=== PATIENT | female | born 1955 | race African-American/Black ===

== ENCOUNTER 2016-06-02 11:10 | Inpatient (IN) | payer OTHER, BC ==
[2016-06-02] MEDS ORDERED: morphine CARPU-JECT 4 MG/1 ML DISP.SYRIN IVPUSH ONE (11:38)
[2016-06-02] MEDS ORDERED: morphine CARPU-JECT 4 MG/1 ML DISP.SYRIN ONE (11:44)
--- NOTE | 2016-06-02 11:45 | PDOC ---
History of Present Illness - General History Source: Patient Exam Limitations: No Limitations - History of Present Illness Initial Comments: 06/02/16 13:37 The patient is a 60-year-old female, with a significant past medical history of CHF, HTN, hypercholesterolemia, hypothyroidism, pacemaker/defibrillator, stents , s/p cholecystectomy, who presents to the emergency department with abdominal pain. The patient reports that the abdominal pain is located in the right abdomen, and radiates to the chest. She reports that the abdominal pain is the most severe in the region where she had a cholecystectomy. The patient denies shortness of breath, headache and dizziness. The patient denies fever, chills, nausea, vomit, diarrhea and constipation. The patient denies dysuria, frequency, urgency and hematuria. Allergies: aspirin Past surgical history: cholecystectomy 04/2016, CABG 2004, bypass, stents x2 Social history: Current everyday smoker PMD - Dr. Parrish Ferrer <Dianne Raya - Last Filed: 06/02/16 15:14> <Wale Gaspar - Last Filed: 06/02/16 18:54> - General Chief Complaint: Pain Stated Complaint: ABD PAIN Past History <Dianne Raya - Last Filed: 06/02/16 15:14> - Past Medical History Asthma: Yes Cardiac Disorders: Yes (Stents, PM/Defib.) CHF: Yes GI Disorders: Yes HTN: Yes Hypercholesterolemia: Yes Psychiatric Problems: Yes (depression.) Suicide Attempt (Hx): No Seizures: No Thyroid Disease: Yes (Hypo) - Surgical History Abdominal Surgery: Yes (peg tube.) Cardiac Surgery: Yes (bypass,stent x2, CABG 2003, ICD/Pacer 7/15) Cholecystectomy: Yes (04/2016) Lung Surgery: (cabg 2003) Orthopedic Surgery: Yes (Right THR) - Immunization History Immunization Up to Date: Yes - Psycho/Social/Smoking Cessation Hx Anxiety: No Suicidal Ideation: No Smoking Status: No Smoking History: Current every day smoker Have you smoked in the past 12 months: Yes Number of Cigarettes Smoked Daily: 3 Information on smoking cessation initiated: No 'Breaking Loose' booklet given: 10/03/15 Hx Alcohol Use: No Drug/Substance Use Hx: No Substance Use Type: None Hx Substance Use Treatment: No <Wale Gaspar - Last Filed: 06/02/16 18:54> - Past Medical History Allergies/Adverse Reactions: Allergies Allergy/AdvReac Type Severity Reaction Status Date / Time aspirin AdvReac Mild gi upset Verified 06/02/16 11:19 Home Medications: Ambulatory Orders Atorvastatin Ca [Lipitor] 20 mg PO DAILY 05/29/12 Albuterol Sulfate [Proair Hfa -] 1 - 2 inh PO TID 06/10/14 Furosemide [Lasix -] 40 mg PO BID 06/10/14 Metoprolol Succinate [Toprol XL -] 200 mg PO DAILY 10/10/14 Levothyroxine [Synthroid -] 75 mcg PO DAILY 09/10/15 Lisinopril [Prinivil] 10 mg PO DAILY 10/03/15 Docusate Sodium [Colace -] 100 mg PO TID #90 capsule 10/04/15 Sennosides [Senna -] 2 tab PO HS #60 tablet 10/04/15 Acetaminophen [Tylenol .Regular Strength -] 650 mg PO Q4H PRN #30 tablet Aclidinium [place] [Tudorza -] 1 puff IH BID #10 inhaler 05/03/16 Budesonide/Formeterol Fumarate [SYMBICORT 160/4.5mcg -] 1 puff IH BID #10 inhaler 05/03/16 Furosemide [Lasix -] 40 mg PO BID@0600,1400 #60 tablet 05/03/16 Gabapentin [Neurontin -] 100 mg PO DAILY #30 capsule 05/03/16 Hydralazine HCl [Apresoline -] 10 mg PO TID #90 tablet 05/03/16 Isosorbide Mononitrate [Imdur -] 30 mg PO DAILY #30 tab.sr.24h 05/03/16 Olanzapine [Zyprexa -] 5 mg PO BID #60 tablet 05/03/16 Spironolactone [Aldactone -] 25 mg PO DAILY #60 tablet 05/03/16 Review of Systems - Review of Systems Able to Perform ROS?: Yes Comments:: 06/02/16 13:37 CONSTITUTIONAL: Absent: fever, chills, diaphoresis, generalized weakness, malaise, loss of appetite HEENT: Absent: rhinorrhea, nasal congestion, throat pain, throat swelling, difficulty swallowing, mouth swelling, ear pain, eye pain, visual changes CARDIOVASCULAR: Present: (+) chest pain Absent: syncope, palpitations, irregular heart rate, lightheadedness, peripheral edema RESPIRATORY: Absent: cough, shortness of breath, dyspnea with exertion, orthopnea, wheezing, stridor, hemoptysis GASTROINTESTINAL: Present: (+) abdominal pain Absent: abdominal distension, nausea, vomiting, diarrhea, constipation, melena, hematochezia GENITOURINARY: Absent: dysuria, frequency, urgency, hesitancy, hematuria, flank pain, genital pain MUSCULOSKELETAL: Absent: myalgia, arthralgia, joint swelling SKIN: Absent: rash, itching, pallor HEMATOLOGIC/IMMUNOLOGIC: Absent: easy bleeding, easy bruising, lymphadenopathy, frequent infections ENDOCRINE: Absent: unexplained weight gain, unexplained weight loss, heat intolerance, cold intolerance NEUROLOGIC: Absent: headache, focal weakness or paresthesias, dizziness, unsteady gait, seizure, mental status changes, bladder or bowel incontinence PSYCHIATRIC: Absent: anxiety, depression, suicidal or homicidal ideation, hallucinations. <Dianne Raya - Last Filed: 06/02/16 15:14> *Physical Exam - Vital Signs Last Vital Signs Temp Pulse Resp BP Pulse Ox 96.7 F L 89 20 126/93 98 06/02/16 11:19 06/02/16 11:19 06/02/16 11:19 06/02/16 11:19 06/02/16 11:19 - Physical Exam Comments: 06/02/16 13:37 GENERAL: Well developed, well nourished. Awake and alert. In no acute distress. Speaking in full sentences. HEENT: Normocephalic, atraumatic. PERRLA, EOMI. No conjunctival pallor. Sclera are non- icteric. Moist mucous membranes. Oropharynx is clear. NECK: Supple. Full ROM. No JVD. Carotid pulses 2+ and symmetric, without bruits. No thyromegaly. No lymphadenopathy. CARDIOVASCULAR: Regular rate and rhythm. No murmurs, rubs, or gallops. Distal pulses are 2+ and symmetric. PULMONARY: (+)Poor inspiratory effort. Lungs clear to auscultation bilaterally. No wheezing , rales or rhonchi. ABDOMINAL: (+) Diffuse abdominal tenderness to palpation. (+) Abdomen shows prior puncture wounds from laparoscopic cholecystectomy. Soft. Non-distended. No rebound or guarding. No organomegaly. Normoactive bowel sounds. MUSCULOSKELETAL Normal range of motion at all joints. No bony deformities or tenderness. No CVA tenderness. EXTREMITIES: (+) 3+ pitting edema. No cyanosis. No clubbing. No calf tenderness. SKIN: Warm and dry. Normal capillary refill. No rashes. No jaundice. NEUROLOGICAL: Alert, awake, appropriate. Cranial nerves 2-12 intact. No deficits to light touch and temperature in face, upper extremities and lower extremities. No motor deficits in the in face, upper extremities and lower extremities. Normoreflexic in the upper and lower extremities. Normal speech. Toes are downgoing bilaterally. Gait is normal without ataxia. PSYCHIATRIC: Cooperative. Good eye contact. Appropriate mood and affect. <Dianne Raya - Last Filed: 06/02/16 15:14> - Vital Signs Last Vital Signs Temp Pulse Resp BP Pulse Ox 96.7 F L 89 20 126/93 98 06/02/16 11:19 06/02/16 11:19 06/02/16 11:19 06/02/16 11:19 06/02/16 11:19 <Wale Gaspar - Last Filed: 06/02/16 18:54> ED Treatment Course - LABORATORY CBC & Chemistry Diagram: 06/02/16 12:00 06/02/16 12:00 - ADDITIONAL ORDERS Additional order review: Laboratory Results 06/02/16 12:00 Sodium 135 L Potassium 3.8 Chloride 98 Carbon Dioxide 28 Anion Gap 9 BUN 21 H D Creatinine 0.9 D Creat Clearance w eGFR > 60 Random Glucose 96 Calcium 9.2 Total Bilirubin 2.5 H D AST 37 D ALT 25 Alkaline Phosphatase 165 H Creatine Kinase 387 H D CK-MB (CK-2) 13.785 H Troponin I 0.19 H B-Natriuretic Peptide 2473.26 H Total Protein 6.9 Albumin 3.2 L Lipase 48 L 06/02/16 12:00 RBC 5.09 MCV 80.6 MCHC 32.0 RDW 19.5 H MPV 7.9 Neutrophils % 68.3 Lymphocytes % 19.2 Monocytes % 12.2 H Eosinophils % 0.0 Basophils % 0.3 - RADIOLOGY Radiograph Interpretation: 06/02/16 15:15 ABDOMEN US- LIMITED Reviewed by: Dr. Wale Gaspar Interpreted by: Dr. Ildefonso Marinelli IMPRESSION: No retained stones, no biliary dilation with no signs of pancreatitis. No acute changes with no ascites or fluid collections identified. - Medications Given in the ED: ED Medications Discontinued Medications Generic Name Dose Route Start Last Admin Trade Name [place] PRN Reason Stop Dose Admin Morphine Sulfate 4 mg 06/02/16 11:38 06/02/16 12:02 Morphine Injection - IVPUSH 06/02/16 11:39 4 mg ONCE ONE Administration <Dianne Raya - Last Filed: 06/02/16 15:14> - LABORATORY CBC & Chemistry Diagram: 06/02/16 12:00 06/02/16 12:00 - RADIOLOGY Radiology Studies Ordered: Category Date Time Status ABDOMEN US -LIMITED [US] Stat Ultrasound 06/02/16 11:40 Ordered <Wale Gaspar - Last Filed: 06/02/16 18:54> Medical Decision Making - Medical Decision Making 06/02/16 18:50 Recent cholecystectomy with sob, hx of noncompliance to meds. US neg. CXR: CHF , clinical chf present. Will admit as obs. <Wale Gaspar - Last Filed: 06/02/16 18:54> *DC/Admit/Observation/Transfer - Attestations Scribe Attestion: 06/02/16 13:37 Documentation prepared by Dianne Raya, acting as manager medical device for Wale Gaspar MD. <Dianne Raya - Last Filed: 06/02/16 15:14> - Discharge Dispostion Admit: Yes <Wale Gaspar - Last Filed: 06/02/16 18:54> Diagnosis at time of Disposition: Congestive heart failure, NYHA class 3, Postoperative abdominal pain - Discharge Dispostion Condition at time of disposition: Stable - Referrals Referrals: Parrish Ferrer MD [Primary Care Provider] -
[2016-06-02 12:14] LABS: BASOPHIL 0.3 % (0-2.0); MCH 25.8 pg (25.7-33.7); MEAN CELL VOLUME 80.6 fl (80-96); MEAN PLT VOLUME 7.9 fl (7.5-11.1); NEUTROPHILS 68.3 % (42.8-82.8); PLATELET COUNT 226 K/MM3 (134-434); RDW 19.5 % (11.6-15.6); WHITE BLOOD COUNT 6.7 K/mm3 (4.0-10.0)
[2016-06-02 12:44] LABS: ALBUMIN 3.2 g/dl (3.4-5.0); ANION GAP 9 (8-16); CALCIUM 9.2 mg/dL (8.5-10.1); CO2 28 mmol/L (21-32); GLUCOSE,RANDOM 96 mg/dL (74-106)
[2016-06-02 12:47] LABS: BILIRUBIN,TOTAL 2.5 mg/dL (0.2-1.0); CREATININE 0.9 mg/dL (0.55-1.02); SGPT/ALT 25 U/L (12-78); TOT PROT 6.9 g/dl (6.4-8.2)
[2016-06-02 12:50] LABS: ALK PHOS 165 U/L (45-117); TROPONIN I 0.19 ng/ml (0.00-0.05)
[2016-06-02 12:51] LABS: SGOT/AST 37 U/L (15-37)
[2016-06-02 13:46] LABS: URINE APPEARANCE CLEAR; URINE BILIRUBIN NEGATIVE (NEGATIVE); URINE BLOOD NEGATIVE (NEGATIVE); URINE COLOR AMBER; URINE GLUCOSE (UA) NEGATIVE (NEGATIVE); URINE KETONE NEGATIVE (NEGATIVE); URINE LEUK ESTERASE NEGATIVE (NEGATIVE); URINE NITRITE NEGATIVE (NEGATIVE); URINE UROBILINOGEN 4.0 E.U/dl E.U./dl (0.2-1.0)
[2016-06-02 13:48] LABS: URINE PROTEIN 1+ (NEGATIVE)
[2016-06-02 13:49] LABS: URINE HYALINE CAST 24 /lpf; URINE MUCUS RARE; URINE RBC 1 /hpf (0-3); URINE WBC 1 /hpf (3-5)
[2016-06-02] MEDS ORDERED: FUROSEMIDE 40 MG/4 ML INJECTABLE VIAL IVPUSH ONE (18:48)
[2016-06-02] MEDS ORDERED: FUROSEMIDE 40 MG/4 ML INJECTABLE VIAL ONE (18:58)
--- NOTE | 2016-06-02 19:37 | PN ---
<NgocjuaquinDeepika gaming - Last Filed: 06/02/16 19:34> Teaching Attending Note Name of Resident: Caty Jarrett <Emperatriz Alonzo - Last Filed: 06/03/16 03:21> Teaching Attending Note ATTENDING PHYSICIAN STATEMENT I saw and evaluated the patient. I reviewed the resident's note and discussed the case with the resident. I agree with the resident's findings and plan as documented. SUBJECTIVE: Patient is a 60 year old female, complaining of right upper abdominal pain, lower extremity pain and edema and palpitations. The abdominal pain and lower extremity pain and edema has been constant since her cholecystectomy in April 2016. She came to the ED today when the palpitations began. She describes the abdominal pain as pinching and notes the abdominal pain is alleviated by eating ice cubes. Patient uses pillows to prop her feet up at night, but does not use extra pillows to prop up her upper body. Patient also reports occasional SOB and restlessness since her cholecystectomy. She reports she is compliant with taking her medications. PHQ score of 10 Moderate. PMHx: CHF, HTN, hypercholesterolemia, hypothyroidism, pacemaker/defibrillator, stents, s/p cholecystectomy . OBJECTIVE: Last Vital Signs Temp Pulse Resp BP Pulse Ox 96.7 F L 89 20 126/93 98 06/02/16 11:19 06/02/16 11:19 06/02/16 11:19 06/02/16 11:19 06/02/16 11:19 GENERAL: Awake, alert, and fully oriented, in no acute distress HEENT: Atraumatic. PERRLA, EOMI. Moist mucosa. LUNGS: No distress, speaks full sentences, fine crackles in left lower lung. HEART: + JVD. Regular rate and rhythm, normal S1 and S2, no murmurs, rubs or gallops, peripheral pulses normal and equal bilaterally. ABDOMEN: + ventral hernia. Not incarcerated. + 1.5 cm open wound with serosanguinous secretions. Slight erythema. Soft, nontender, normoactive bowel sounds. No guarding, no rebound. EXTREMITIES: Normal inspection, Normal range of motion, 1+ pitting edema. No clubbing or cyanosis. NEUROLOGICAL: Cranial nerves II through XII grossly intact. Normal speech, normal gait, no focal sensorimotor deficits SKIN: Warm, Dry, normal turgor, no rashes or lesions noted. CBCD WBC 6.7 K/mm3 (4.0-10.0) 06/02/16 12:00 RBC 5.09 M/mm3 (3.60-5.2) 06/02/16 12:00 Hgb 13.1 GM/dL (10.7-15.3) 06/02/16 12:00 Hct 41.0 % (32.4-45.2) 06/02/16 12:00 MCV 80.6 fl (80-96) 06/02/16 12:00 MCHC 32.0 g/dl (32.0-36.0) 06/02/16 12:00 RDW 19.5 % (11.6-15.6) H 06/02/16 12:00 Plt Count 226 K/MM3 (134-434) D 06/02/16 12:00 MPV 7.9 fl (7.5-11.1) 06/02/16 12:00 CMP Sodium 135 mmol/L (136-145) L 06/02/16 12:00 Potassium 3.8 mmol/L (3.5-5.1) 06/02/16 12:00 Chloride 98 mmol/L (98-107) 06/02/16 12:00 Carbon Dioxide 28 mmol/L (21-32) 06/02/16 12:00 Anion Gap 9 (8-16) 06/02/16 12:00 BUN 21 mg/dL (7-18) H D 06/02/16 12:00 Creatinine 0.9 mg/dL (0.55-1.02) D 06/02/16 12:00 Creat Clearance w eGFR > 60 (>60) 06/02/16 12:00 Calcium 9.2 mg/dL (8.5-10.1) 06/02/16 12:00 Total Bilirubin 2.5 mg/dL (0.2-1.0) H D 06/02/16 12:00 AST 37 U/L (15-37) D 06/02/16 12:00 ALT 25 U/L (12-78) 06/02/16 12:00 Alkaline Phosphatase 165 U/L (45-117) H 06/02/16 12:00 Total Protein 6.9 g/dl (6.4-8.2) 06/02/16 12:00 Albumin 3.2 g/dl (3.4-5.0) L 06/02/16 12:00 IMAGING: Chest X-Ray Impression: CHF Abdominal Ultrasound Impression: No retained stones, no biliary dilation with no signs of pancreatitis. No acute changes with no ascites or fluid collections identified. ASSESSMENT AND PLAN: 1.) CHF exacerbation NIHA Class 3 - Lasix 60 BID - Echo - Cardiology consult - Continue home meds - Fluid restrict - Monitor Is and Os 2.) Abdominal wound s/p lap - Clindamycin - Daily wound care 3.) Abdominal pain most likely secondary to ventral hernia vs adhesions - Percocet Q6 hrs PRN - Refer to surgeon on discharge 4.) Depression - Moderate - PHQ score of 9-10 - Consider ref to psych on discharge 5.) Hypothyroidism -Check TSH levels -Continue levothyroxine 6.) DVT PPx - Heparin 5,000 units SQ Documentation prepared by Emperatriz Alonzo, acting as manager medical writing for , Deepika Whatley MD.
[2016-06-02 19:54] LABS: TROPONIN I 0.18 ng/ml (0.00-0.05)
--- NOTE | 2016-06-02 20:41 | MSN ---
Admitting History and Physical - Primary Care Physician PCP: Carissa - Admission Chief Complaint: Abdominal pain History of Present Illness: 60 year old female with a pmhx of CHF, FL with stents x2, defibrillator/ pacemaker and CABG, HTN, HLD, hypercholesterolemia, DM, depression, CAD, hypothyroidism, kidney stone and peripheral neuropathy who presents with right sided abdominal pain for the last month. Patient is s/p cholestectomy in 05/05. In the past two days the pain has gotten worse and radiates to her back, heart and legs. She describes the pain in her legs as tingling and the pain in her abdomen as sharp. Patient has been eating a cup of ice a day for the chest pain and she says it helps. She denies dysuria, frequency and burning with urination. Denies headache, n/v/d, fever, chills, palpitations and no loss in appetite. 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 Cardiovascular: Yes: CAD (CABG 2003, stents x2, now with defibrillator), CHF, HTN, Hyperlipdemia, FL, Other (Hypercholesterolemia) Pulmonary: Yes: COPD Hepatobiliary: Yes: Cholecystitis Renal/: Yes: Renal Calculi ...: No Psych: Yes: Depression Musculoskeletal: Yes: Chronic low back pain Endocrine: Yes: Hypothyroidism - Past Surgical History Past Surgical History: Yes: CABG, Cholecystectomy, Joint Replacement (right THR) , Stent (X2) - Smoking History Smoking history: Current every day smoker Have you smoked in the past 12 months: Yes Aproximately how many cigarettes per day: 3 (for 35 years) - Alcohol/Substance Use Hx Alcohol Use: No History of Substance Use: reports: None - Social History ADL: Independent History of Recent Travel: No Home Medications - Allergies Allergies/Adverse Reactions: Allergies Allergy/AdvReac Type Severity Reaction Status Date / Time aspirin AdvReac Mild gi upset Verified 06/02/16 11:19 - Home Medications Home Medications: Ambulatory Orders Atorvastatin Ca [Lipitor] 20 mg PO DAILY 05/29/12 Albuterol Sulfate [Proair Hfa -] 1 - 2 inh PO TID 06/10/14 Furosemide [Lasix -] 40 mg PO BID 06/10/14 Metoprolol Succinate [Toprol XL -] 200 mg PO DAILY 05/23/15 Levothyroxine [Synthroid -] 75 mcg PO DAILY 09/10/15 Lisinopril [Prinivil] 10 mg PO DAILY 10/03/15 Docusate Sodium [Colace -] 100 mg PO TID #90 capsule 10/04/15 Sennosides [Senna -] 2 tab PO HS #60 tablet 10/04/15 Acetaminophen [Tylenol .Regular Strength -] 650 mg PO Q4H PRN #30 tablet Aclidinium [place] [Tudorza -] 1 puff IH BID #10 inhaler 05/03/16 Budesonide/Formeterol Fumarate [SYMBICORT 160/4.5mcg -] 1 puff IH BID #10 inhaler 05/03/16 Furosemide [Lasix -] 40 mg PO BID@0600,1400 #60 tablet 05/03/16 Gabapentin [Neurontin -] 100 mg PO DAILY #30 capsule 05/03/16 Hydralazine HCl [Apresoline -] 10 mg PO TID #90 tablet 05/03/16 Isosorbide Mononitrate [Imdur -] 30 mg PO DAILY #30 tab.sr.24h 05/03/16 Olanzapine [Zyprexa -] 5 mg PO BID #60 tablet 05/03/16 Spironolactone [Aldactone -] 25 mg PO DAILY #60 tablet 05/03/16 Review of Systems - Review of Systems Constitutional: reports: No Symptoms, Lethargy Eyes: reports: No Symptoms HENT: reports: No Symptoms Neck: reports: No Symptoms Cardiovascular: reports: Chest Pain, Edema, Shortness of Breath Respiratory: reports: SOB, SOB on Exertion Gastrointestinal: reports: Abdominal Pain Genitourinary: reports: No Symptoms Musculoskeletal: reports: Back Pain, Extremity Pain Integumentary: reports: Incision, Wound Neurological: reports: Headache Physical Examination Vital Signs: Vital Signs Temperature 96.7 F L 06/02/16 11:19 Pulse Rate 89 06/02/16 11:19 Respiratory Rate 20 06/02/16 11:19 Blood Pressure 126/93 06/02/16 11:19 O2 Sat by Pulse Oximetry (%) 98 06/02/16 11:19 Constitutional: Yes: Well Nourished, Calm, Mild Distress Eyes: Yes: WNL, Conjunctiva Clear, EOM Intact HENT: Yes: Atraumatic, Normocephalic Neck: Yes: WNL, Supple, Trachea Midline Cardiovascular: Yes: WNL, Regular Rate and Rhythm Respiratory: Yes: WNL, Regular, Other (Crackles) Gastrointestinal: Yes: Normal Bowel Sounds, Soft, Distention, Hernia, Tenderness Musculoskeletal: Yes: Back Pain Extremities: Yes: Calf Tenderness Edema: LLE: 2+ (Pitting), RLE: 2+ (Pitting) Peripheral Pulses WNL: Yes Peripheral Pulses: Left Doralis Pedis: 2+, Right Dorsalis Pedis: 2+ Wound/Incision: Yes: Reddened (possibly infected surgical site) Neurological: Yes: WNL, Alert, Oriented, Lethargy, Tingling (Lower extremities) Psychiatric: Yes: Alert, Oriented, Other (saddened) Labs: [id number] ALP-165 CK-387 Troponin 0.19 [id number] Urine culture pending Imaging - Results Chest X-ray: Report Reviewed, Image Reviewed (CHF) Ultrasound: Report Reviewed EKG: Report Reviewed, Image Reviewed (PVC, left atrial enlargement, st elevation v2-4) Assessment/Plan 60 year old female with pmhx of CHF, [place] with defibrillator/pacemaker,stents x2 and CABG, HTN, HLD, hypercholesterolemia, CAD, DM, depression, peripheral neuropathy, kidney stone and hypothyroidism being admitted for CHF exacterbation. CHF -lasix -spironolactone -proair -trend troponin -hydralazine -symbicort -tudorza -percocet -Echo -Cardiology consult Surgical incision infection -clindamycin Ventral hernia -Surgical consult Hypothyroidism -synthroid HTN -metoprolol -imdur -lisinopril -hydralazine -lasix DM -neurontin HLP/hypercholesterolemia -lipitor Depression -Zyprexa Back pain -tylenol salt restricted diet
[2016-06-02] MEDS ORDERED: CLINDAMYCIN HCL 150 MG CAPSULE (FP) PO ONE ×2 (21:21)
--- NOTE | 2016-06-02 22:04 | HP ---
CHIEF COMPLAINT: PCP: HISTORY OF PRESENT ILLNESS: 60 year old female presented to the ED with the chief complaints of right sided abdominal pain x 1month. Abdominal pain localized in Right upper and lower quadrant pain, slowly progressing to worse, increased to 10/10 in intensity which brought her to the hospital, abdominal pain was non radiating. Since 2days , pains getting worse, radiating to her back, heart and legs. Patient is s/p cholestectomy in 05/05. She describes the pain in her legs as tingling and the pain in her abdomen as sharp. Patient has been eating a cup of ice a day for the chest pain and she says it helps. She denies dysuria, frequency and burning with urination. Denies headache, n/v/d, fever, chills, palpitations and no loss in appetite. She hasn't been compliant with her home meds. ER course was notable for: (1) CBC, CMP, UA, D-dimer (2) CXR, USG Abd (3) Morphine, Lasix Recent Travel: PAST MEDICAL HISTORY: CHF, [place] with stents x2, defibrillator/pacemaker and CABG, HTN, HLD, hypercholesterolemia, DM, depression, CAD, hypothyroidism, kidney stone and peripheral neuropathy PAST SURGICAL HISTORY: Social History: Smoking: Active smoker, Smokes 3 cigarettes/day x 35 years Alcohol: Doesn't drink alcohol Drugs: No illicit drug use Ho Family History: Not known Allergies aspirin Adverse Reaction (Mild, Verified 06/02/16 11:19) GI upset HOME MEDICATIONS: Medication Instructions Recorded Atorvastatin Ca [Lipitor] 20 mg PO DAILY 05/29/12 Albuterol Sulfate [Proair Hfa -] 1 - 2 inh PO TID 06/10/14 Furosemide [Lasix -] 40 mg PO BID 06/10/14 Metoprolol Succinate [Toprol XL -] 200 mg PO DAILY 10/10/14 Levothyroxine [Synthroid -] 75 mcg PO DAILY 09/10/15 Lisinopril [Prinivil] 10 mg PO DAILY 10/03/15 Docusate Sodium [Colace -] 100 mg PO TID #90 capsule 10/04/15 Sennosides [Senna -] 2 tab PO HS #60 tablet 10/04/15 Acetaminophen [Tylenol .Regular 650 mg PO Q4H PRN #30 tablet 05/03/16 Strength -] Aclidinium Supply [Tudorza -] 1 puff IH BID #10 inhaler 05/03/16 Budesonide/Formeterol Fumarate 1 puff IH BID #10 inhaler 05/03/16 [SYMBICORT 160/4.5mcg -] Furosemide [Lasix -] 40 mg PO BID@0600,1400 #60 tablet 05/03/16 Gabapentin [Neurontin -] 100 mg PO DAILY #30 capsule 05/03/16 Hydralazine HCl [Apresoline -] 10 mg PO TID #90 tablet 05/03/16 Isosorbide Mononitrate [Imdur -] 30 mg PO DAILY #30 tab.sr.24h 05/03/16 Olanzapine [Zyprexa -] 5 mg PO BID #60 tablet 05/03/16 Spironolactone [Aldactone -] 25 mg PO DAILY #60 tablet 05/03/16 REVIEW OF SYSTEMS CONSTITUTIONAL: Present: generalized weakness Absent: fever, chills, diaphoresis , malaise, loss of appetite, weight change HEENT: Absent: rhinorrhea, nasal congestion, throat pain, throat swelling, difficulty swallowing, mouth swelling, ear pain, eye pain, visual changes CARDIOVASCULAR: Absent: chest pain, syncope, palpitations, irregular heart rate, lightheadedness , peripheral edema RESPIRATORY: Absent: cough, shortness of breath, dyspnea with exertion, orthopnea, wheezing, stridor, hemoptysis GASTROINTESTINAL: Present: abdominal pain, abdominal distension Absent: nausea, vomiting, diarrhea, constipation, melena, hematochezia GENITOURINARY: Absent: dysuria, frequency, urgency, hesitancy, hematuria, flank pain, genital pain MUSCULOSKELETAL: Absent: myalgia, arthralgia, joint swelling, back pain, neck pain SKIN: Absent: rash, itching, pallor HEMATOLOGIC/IMMUNOLOGIC: Absent: easy bleeding, easy bruising, lymphadenopathy, frequent infections ENDOCRINE: Absent: unexplained weight gain, unexplained weight loss, heat intolerance, cold intolerance NEUROLOGIC: Absent: headache, focal weakness or paresthesias, dizziness, unsteady gait, seizure, mental status changes, bladder or bowel incontinence PSYCHIATRIC: Absent: anxiety, depression, suicidal or homicidal ideation, hallucinations. PHYSICAL EXAMINATION GENERAL: Awake, alert, and fully oriented, in mild distress secondary to abdominal pain. HEAD: Normal with no signs of trauma. EYES: EOM intact, no pallor or icterus EARS, NOSE, THROAT: Ears normal. Moist mucous membranes. NECK: Supple LUNGS: Breath sounds equal, Bibasilar crackles+ , absent wheeze. HEART: Regular rate and rhythm, normal S1 and S2 without murmur. ABDOMEN: 1.5 x 2cm open surgical wound, draining minimal serosanguinous fluid, Soft, tenderness Right upper quadrant> Left, distended +, normoactive bowel sounds, no guarding, no rebound, no masses. No hepatomegaly or splenomegaly. MUSCULOSKELETAL: Normal range of motion at all joints. No bony deformities or tenderness. No CVA tenderness. UPPER EXTREMITIES: 2+ pulses, warm, well-perfused. No cyanosis. No clubbing. Cap refill <2 seconds. No peripheral edema. LOWER EXTREMITIES: 2+ pulses, warm, well-perfused. No calf tenderness. B/L pitting edema ++ NEUROLOGICAL: Cranial nerves II-XII intact. Normal speech. Gait not observed. PSYCHIATRIC: Cooperative. Poor eye contact. Appropriate mood and affect. SKIN: Warm, dry, normal turgor, no rashes or lesions noted. USG abdomen 05/21/2016- No acute pathology. Hepatomegaly 18.70 cm with hepatic steatosis. ASSESSMENT/PLAN: 60 year old female with significant past medical hx of CHF, [place] with stents x2, defibrillator/pacemaker and CABG, HTN, HLD, hypercholesterolemia, DM, depression , CAD, hypothyroidism, kidney stone and peripheral neuropathy presented to the ED with the chief complaints of right sided abdominal pain x 1month. # CHF-Acute exacerbation; HTN Stable Has B/L Pitting edema, Elevated D-dimer. Patient not compliant with home meds Continue Lasix 60mg BID Continue spironolactone 25mg PO daily Continue Lisinopril 10mg Daily Continue Metoprolol 200mg Daily Cardiology consult for Dr. Cardenas Echo ordered Fluid restriction Monitor I's and O's # Abdominal Pain with surgicial incision infection Likely has a ventral hernia Hepatomegaly with hepatic steatosis on USG abdomen s/p cholecystectomy Percocet ordered for pain. Clindamycin to cover for surgical site infection Wound care If symptoms persists, would consider Abd/Pelvis CT Surgical consult recommended # Chronic elevations of troponins as compared to troponins in previous admissions # Hypothyroidism Continue Levothyroxine 75 mcg Check TSH # Diabetes Mellitus Not on meds Diabetic diet/ Exercise # Peripheral Neuropathy # Hypercholesterolemia Continue Atorvastatin 20mg PO HS # Depression with flat affect PHQ score 9-10 Olanzapine 5mg BID # Chronic Back pain Percocet # FEN Not on IV fluids Electrolytes to be repeated tomorrow Diabetic/Sodium controlled diet # Prophylaxis For DVT- Heparin 5000U sq TID For GI- Not indicated Illness, Investigation and Plan of care explained to the patient. She verbalized understanding. Case seen and discussed with Dr. Whatley. Visit type - Emergency Visit Emergency Visit: Yes ED Registration Date: 06/02/16 Care time: The patient presented to the Emergency Department on the above date and was hospitalized for further evaluation of their emergent condition. - New Patient This patient is new to me today: Yes Date on this admission: 06/03/16 - Critical Care Critical Care patient: No
[2016-06-02] MEDS ORDERED: METOPROLOL SUCCINATE 50 MG TAB.SR.24H (FP) ONE (22:22)
[2016-06-02] MEDS ORDERED: CLINDAMYCIN HCL 150 MG CAPSULE (FP) ONE (22:22)
[2016-06-02] MEDS ORDERED: DOCUSATE SODIUM 100 MG CAPSULE (FP) PO ONE (22:23)
[2016-06-02] MEDS ORDERED: HEPARIN NA (PORCINE) 5,000 UNITS/ML 1ML VIAL ONE (22:23)
[2016-06-02] MEDS ORDERED: ATORVASTATIN CA 40 MG TABLET (FP) ONE (22:23)
[2016-06-02] MEDS ORDERED: LISINOPRIL 5 MG TABLET (FP) ONE (22:23)
[2016-06-02] MEDS: DOCUSATE SODIUM 100 MG CAPSULE (FP) PO SCH (22:38)
[2016-06-02] MEDS: ATORVASTATIN CA 20 MG TABLET (FP) PO SCH (22:38)
[2016-06-02] MEDS: SENNOSIDES 8.6MG TABLET (FP) PO SCH (22:38)
[2016-06-02] MEDS: LISINOPRIL 10 MG TABLET (FP) PO SCH (22:38)
[2016-06-02] MEDS: METOPROLOL SUCCINATE 100 MG TAB.SR.24H (FP) PO SCH (22:39)
[2016-06-03] MEDS: DOCUSATE SODIUM 100 MG CAPSULE (FP) PO SCH ×3 (06:02→21:25)
[2016-06-03] MEDS ORDERED: HEPARIN NA (PORCINE) 5,000 UNITS/ML 1ML VIAL ONE ×2 (06:04→16:09)
[2016-06-03] MEDS ORDERED: FUROSEMIDE 40 MG TABLET (FP) ONE (06:04)
[2016-06-03] MEDS ORDERED: LEVOTHYROXINE NA 25 MCG TABLET (FP) ONE (06:04)
[2016-06-03] MEDS ORDERED: CLINDAMYCIN HCL 150 MG CAPSULE (FP) ONE (06:04)
[2016-06-03] MEDS: FUROSEMIDE 40 MG TABLET (FP) PO SCH (06:08)
[2016-06-03] MEDS: CLINDAMYCIN HCL 150 MG CAPSULE (FP) PO SCH (06:08)
[2016-06-03] MEDS: HEPARIN NA (PORCINE) 5,000 UNITS/ML 1ML VIAL SQ SCH ×4 (06:08→21:26)
[2016-06-03] MEDS: LEVOTHYROXINE NA 75 MCG TABLET (FP) PO SCH (06:08)
[2016-06-03 07:56] LABS: MCHC 32.3 g/dl (32.0-36.0); MEAN CELL VOLUME 80.4 fl (80-96); MEAN PLT VOLUME 8.3 fl (7.5-11.1); PLATELET COUNT 245 K/MM3 (134-434); RDW 19.1 % (11.6-15.6)
[2016-06-03 10:56] LABS: ALBUMIN 3.4 g/dl (3.4-5.0); ALK PHOS 147 U/L (45-117); ANION GAP 11 (8-16); BILIRUBIN,TOTAL 3.4 mg/dL (0.2-1.0); CO2 27 mmol/L (21-32); CREATININE 0.9 mg/dL (0.55-1.02); GLUCOSE,RANDOM 70 mg/dL (74-106); MAGNESIUM 1.7 mg/dL (1.8-2.4); PHOSPHOROUS 2.5 mg/dL (2.5-4.9); SGOT/AST 37 U/L (15-37); SGPT/ALT 22 U/L (12-78); TOT PROT 6.9 g/dl (6.4-8.2)
[2016-06-03] MEDS: SPIRONOLACTONE 25 MG TABLET (FP) PO SCH (11:00)
[2016-06-03] MEDS: LISINOPRIL 10 MG TABLET (FP) PO SCH (11:00)
[2016-06-03] MEDS: METOPROLOL SUCCINATE 100 MG TAB.SR.24H (FP) PO SCH (11:00)
[2016-06-03] MEDS: OLANZapine 5 MG TABLET PO SCH ×2 (11:05→21:26)
[2016-06-03] MEDS: amLODIPine BESYLATE 10 MG TABLET (FP) PO SCH (11:24)
[2016-06-03 11:56] VITALS: BMI 28.3
[2016-06-03 13:04] LABS: TROPONIN I 0.18 ng/ml (0.00-0.05)
--- NOTE | 2016-06-03 14:52 | CONSULT ---
Consult Consult Specialty:: cardiology Reason for Consultation:: shortness of breath; hx severe systolic CHF; CAD; s/ p ICD - History of Present Illness Chief Complaint: Pt is mainly concerned with abdominal surgical site that has not closed; denies discharge. History of Present Illness: The patient is a 60-year-old black female, with a significant past medical history of severe systolic CHF, HTN, hypercholesterolemia, hypothyroidism, pacemaker/defibrillator, s/p CABG 2004; s/p coronary stents, s/p cholecystectomy , who presents to the emergency department with abdominal pain. The patient reports that the abdominal pain is located in the right abdomen, and radiates to the chest. She reports that the abdominal pain is the most severe in the region where she had a cholecystectomy. The patient denies shortness of breath, headache and dizziness. The patient denies fever, chills, nausea, vomit, diarrhea and constipation. The patient denies dysuria, frequency, urgency and hematuria. Allergies: aspirin Past surgical history: cholecystectomy 04/2016, CABG 2004, bypass, stents x2 Social history: Current everyday smoker - History Source History Provided By: Patient, Medical Record Limitations to Obtaining History: No Limitations - Past Medical History [employer]: Yes: Peripheral Neuropathy Cardio/Vascular: Yes: CAD (CABG 2003, stents x2, now with defibrillator), CHF, HTN, Hyperlipdemia, [place], Other (Hypercholesterolemia) Pulmonary: Yes: COPD Hepatobiliary: Yes: Cholecystitis Renal/: Yes: Renal Calculi ...: No Psych: Yes: Depression Musculoskeletal: Yes: Chronic low back pain Endocrine: Yes: Hypothyroidism - Past Surgical History Past Surgical History: Yes: CABG, Cholecystectomy, Joint Replacement (right THR) , Stent (X2) - Alcohol/Substance Use Hx Alcohol Use: No History of Substance Use: reports: None - Smoking History Smoking history: Current every day smoker Have you smoked in the past 12 months: Yes Aproximately how many cigarettes per day: 3 - Social History Usual Living Arrangement: With Child ADL: Independent History of Recent Travel: No Home Medications - Allergies Allergies/Adverse Reactions: Allergies Allergy/AdvReac Type Severity Reaction Status Date / Time aspirin AdvReac Mild gi upset Verified 06/02/16 11:19 - Home Medications Home Medications: Ambulatory Orders Atorvastatin Ca [Lipitor] 20 mg PO DAILY 05/29/12 Albuterol Sulfate [Proair Hfa -] 1 - 2 inh PO TID 06/10/14 Furosemide [Lasix -] 40 mg PO BID 06/10/14 Metoprolol Succinate [Toprol XL -] 200 mg PO DAILY 10/10/14 Levothyroxine [Synthroid -] 75 mcg PO DAILY 09/10/15 Lisinopril [Prinivil] 10 mg PO DAILY 10/03/15 Docusate Sodium [Colace -] 100 mg PO TID #90 capsule 10/04/15 Sennosides [Senna -] 2 tab PO HS #60 tablet 10/04/15 Acetaminophen [Tylenol .Regular Strength -] 650 mg PO Q4H PRN #30 tablet Aclidinium Cornelia [Tudorza -] 1 puff IH BID #10 inhaler 05/03/16 Budesonide/Formeterol Fumarate [SYMBICORT 160/4.5mcg -] 1 puff IH BID #10 inhaler 05/03/16 Furosemide [Lasix -] 40 mg PO BID@0600,1400 #60 tablet 05/03/16 Gabapentin [Neurontin -] 100 mg PO DAILY #30 capsule 05/03/16 Hydralazine HCl [Apresoline -] 10 mg PO TID #90 tablet 05/03/16 Isosorbide Mononitrate [Imdur -] 30 mg PO DAILY #30 tab.sr.24h 05/03/16 Olanzapine [Zyprexa -] 5 mg PO BID #60 tablet 05/03/16 Spironolactone [Aldactone -] 25 mg PO DAILY #60 tablet 05/03/16 Family Disease History - Family Disease History Family Disease History: Diabetes: Sister (s/p CABG in her 50s), Heart Disease: Father, Mother (lived to ), Sister Review of Systems - Review of Systems Constitutional: reports: No Symptoms Eyes: reports: No Symptoms HENT: reports: No Symptoms Neck: reports: No Symptoms Cardiovascular: reports: Chest Pain (pt had been having abdominal pain; recently , this was accompanied by brief sharp substernal pain) Respiratory: reports: SOB on Exertion Gastrointestinal: reports: Abdominal Pain (at surgical site) Genitourinary: reports: No Symptoms Breasts: reports: No Symptoms Reported Musculoskeletal: reports: Muscle Weakness Integumentary: reports: Incision, Wound Neurological: reports: No Symptoms Endocrine: reports: No Symptoms Psychiatric: reports: Anxiety, Depression - Risk Factors Known Risk Factors: Yes: Age, Hypercholesterolemia, Hypertension, Race Vital Signs: Vital Signs Temperature 97.5 F L 06/03/16 10:30 Pulse Rate 93 H 06/03/16 10:30 Respiratory Rate 18 06/03/16 10:30 Blood Pressure 110/79 06/03/16 10:30 O2 Sat by Pulse Oximetry (%) 96 06/03/16 10:30 Constitutional: Yes: Calm Eyes: Yes: WNL HENT: Yes: WNL Neck: Yes: WNL Respiratory: Yes: Regular Gastrointestinal: Yes: Soft, Other (pain at surgical site) Renal/: No: Anuria JVD: No Carotid Bruit: No PMI: Displaced Heart Sounds: Yes: S1, S2 (split) Murmur: Yes: Systolic Murmur, Grade 2 Musculoskeletal: Yes: Joint Swelling, Muscle Weakness Extremities: Yes: Cool Edema: Yes Edema: LLE: 1+, RLE: 1+ Peripheral Pulses WNL: No Peripheral Pulses: 1+ Left Doralis Pedis, 1+ Right Dorsalis Pedis Integumentary: Yes: Incision (one site of lap cholecystectomy 1 cm circular, open, no discharge) Neurological: Yes: Alert, Oriented Psychiatric: Yes: Alert, Oriented - Other Data Labs, Other Data: CBC, BMP 06/03/16 06:15 06/03/16 06:15 Troponin, BNP 06/03/16 06:15 Troponin I 0.18 H Troponin, BNP 06/03/16 06:15 Troponin I 0.18 H Abnormal Lab Results 06/03/16 06/03/16 06:15 06:15 RDW 19.1 H Sodium 135 L Potassium 3.4 L Chloride 97 L BUN 19 H Random Glucose 70 L D Magnesium 1.7 L Total Bilirubin 3.4 H D Alkaline Phosphatase 147 H Troponin I 0.18 H TSH 0.33 L D Echo: Report Reviewed Ejection Fraction %: LVEF < 40 % Imaging - Results Chest X-ray: Image Reviewed (cardiomegaly; mild hilar and interstitial markings for CHF) Problem List - Problems (1) Postoperative abdominal pain Assessment/Plan: f/u with surgeon regarding post-cholecystectomy non-healed abdominal lap site. Code(s): R10.9 - UNSPECIFIED ABDOMINAL PAIN G89.18 - OTHER ACUTE POSTPROCEDURAL PAIN (2) Dyspepsia Code(s): K30 - FUNCTIONAL DYSPEPSIA (3) Hypertension Code(s): I10 - ESSENTIAL (PRIMARY) HYPERTENSION (4) Hypothyroidism Code(s): E03.9 - HYPOTHYROIDISM, UNSPECIFIED (5) Status post THR (total hip replacement) Code(s): Z96.649 - PRESENCE OF UNSPECIFIED ARTIFICIAL HIP JOINT (6) Tobacco use disorder Code(s): Z72.0 - TOBACCO USE (7) Coronary artery disease Code(s): I25.10 - ATHSCL HEART DISEASE OF [place] CORONARY ARTERY W/O ANG PCTRS (8) Edema Code(s): R60.9 - EDEMA, UNSPECIFIED Qualifiers: Edema type: generalized Qualified Code(s): R60.1 - Generalized edema (9) Hypoalbuminemia Code(s): E88.09 - OT DISORDERS OF PLASMA-PROTEIN METABOLISM, NEC (10) Risk for coronary artery disease greater than 20% in next 10 years Code(s): Z91.89 - OT PERSONAL RISK FACTORS, NOT ELSEWHERE CLASSIFIED (11) Chronic systolic congestive heart failure Assessment/Plan: continue meroprolol, spironolactone, lisinopril, amlodipne, and furosemide. F/u BUN/Cr, electrolytes (replete K); Is and Os, daily weight. Code(s): I50.22 - CHRONIC SYSTOLIC (CONGESTIVE) HEART FAILURE (12) Depression Code(s): F32.9 - MAJOR DEPRESSIVE DISORDER, SINGLE EPISODE, UNSPECIFIED (13) Diabetes Code(s): E11.9 - TYPE 2 DIABETES MELLITUS WITHOUT COMPLICATIONS (14) Hyperlipidemia Code(s): E78.5 - HYPERLIPIDEMIA, UNSPECIFIED (15) ICD (implantable cardioverter-defibrillator) in place Code(s): Z95.810 - PRESENCE OF AUTOMATIC (IMPLANTABLE) CARDIAC DEFIBRILLATOR
--- NOTE | 2016-06-03 15:51 | PN ---
Progress Note (short form) - Note Progress Note: c/o pain in B/L LE. states she also has some abdominal discomfort since her cholecystectomy. denies CP, SOB,fever, chills, N/V/C/D Current Medications Generic Name Dose Route Start Last Admin Trade Name Freq PRN Reason Stop Dose Admin Albuterol Sulfate 1 amp 06/02/16 21:56 Ventolin 0.083% Nebulizer Soln - NEB Q8H PRN SHORT OF BREATH/WHEEZING Amlodipine Besylate 10 mg 06/03/16 10:00 06/03/16 11:24 Norvasc - PO Not Given DAILY [facility] Atorvastatin Calcium 20 mg 06/02/16 22:00 06/02/16 22:38 Lipitor - PO Not Given HS [facility] Clindamycin HCl 300 mg 06/02/16 22:02 06/03/16 06:08 Cleocin - PO Not Given TID [facility] Docusate Sodium 100 mg 06/02/16 22:00 06/03/16 06:02 Colace - PO Not Given TID [facility] Furosemide 60 mg 06/03/16 06:00 06/03/16 06:08 Lasix - PO 60 mg BID@0600,1400 [facility] Administration Heparin Sodium (Porcine) 5,000 unit 06/03/16 06:00 06/03/16 06:08 Heparin - SQ Not Given TID [facility] Levothyroxine Sodium 75 mcg 06/03/16 07:00 06/03/16 06:08 Synthroid - PO 75 mcg DAILY@0700 [facility] Administration Lisinopril 10 mg 06/02/16 22:00 06/03/16 11:00 Prinivil PO Not Given DAILY [facility] Metoprolol Succinate 200 mg 06/02/16 22:00 06/03/16 11:00 Toprol Xl - PO Not Given DAILY [facility] Olanzapine 5 mg 06/03/16 10:00 06/03/16 11:05 Zyprexa - PO Not Given BID [facility] Oxycodone/Acetaminophen 2 combo 06/02/16 21:16 Percocet 5/325 - PO Q6H PRN PAIN LEVEL 6-10 Senna 2 tab 06/02/16 22:00 06/02/16 22:38 Senna - PO Not Given HS [facility] Spironolactone 25 mg 06/03/16 10:00 06/03/16 11:00 Aldactone - PO Not Given DAILY [facility] Last Vital Signs Temp Pulse Resp BP Pulse Ox 97.5 F L 93 H 18 110/79 96 06/03/16 10:30 06/03/16 10:30 06/03/16 10:30 06/03/16 10:30 06/03/16 10:30 Intake & Output 05/31/16 06/01/16 06/02/16 06/03/16 23:59 23:59 23:59 23:59 Weight 145 lb 160 lb General NAD CV S1 S2 RRR Lungs decreased sounds L base, no wheezing or crackles ABdomen soft tender in RUQ at incision site open 1 cm no warmth or erythema, no drainage appreciated. ND, no rebound or guarding Extremities 1+ pitting edema B/L CBCD WBC 7.0 K/mm3 (4.0-10.0) 06/03/16 06:15 RBC 5.16 M/mm3 (3.60-5.2) 06/03/16 06:15 Hgb 13.4 GM/dL (10.7-15.3) 06/03/16 06:15 Hct 41.4 % (32.4-45.2) 06/03/16 06:15 MCV 80.4 fl (80-96) 06/03/16 06:15 MCHC 32.3 g/dl (32.0-36.0) 06/03/16 06:15 RDW 19.1 % (11.6-15.6) H 06/03/16 06:15 Plt Count 245 K/MM3 (134-434) 06/03/16 06:15 MPV 8.3 fl (7.5-11.1) 06/03/16 06:15 CMP Sodium 135 mmol/L (136-145) L 06/03/16 06:15 Potassium 3.4 mmol/L (3.5-5.1) L 06/03/16 06:15 Chloride 97 mmol/L (98-107) L 06/03/16 06:15 Carbon Dioxide 27 mmol/L (21-32) 06/03/16 06:15 Anion Gap 11 (8-16) 06/03/16 06:15 BUN 19 mg/dL (7-18) H 06/03/16 06:15 Creatinine 0.9 mg/dL (0.55-1.02) 06/03/16 06:15 Creat Clearance w eGFR > 60 (>60) 06/03/16 06:15 Random Glucose 70 mg/dL (74-106) L D 06/03/16 06:15 Calcium 9.0 mg/dL (8.5-10.1) 06/03/16 06:15 Total Bilirubin 3.4 mg/dL (0.2-1.0) H D 06/03/16 06:15 AST 37 U/L (15-37) 06/03/16 06:15 ALT 22 U/L (12-78) 06/03/16 06:15 Alkaline Phosphatase 147 U/L (45-117) H 06/03/16 06:15 Total Protein 6.9 g/dl (6.4-8.2) 06/03/16 06:15 Albumin 3.4 g/dl (3.4-5.0) 06/03/16 06:15 CARDIAC ENZYMES Creatine Kinase 303 IU/L (26-192) H D 06/02/16 19:20 Troponin I 0.18 ng/ml (0.00-0.05) H 06/03/16 06:15 A/P 60yo F wtih CHF, [place] with stents x2, defibrillator/pacemaker and CABG, HTN, HLD, hypercholesterolemia, depression, CAD, hypothyroidism, kidney stone and peripheral neuropathy presented to the ER and was admitted for further evaluation of their emergent condition 1. Acute systolic CHF exacerbation- tele observation. elevated troponins which have remained stable. switch po lasix to 40mg IVP. strict I&O, daily weights, cardio consulted. monitor electrolytes. echo pending 2. Abdominal pain- retained stone? elevated bilirubin higher than last admission. u/s done which showed normal CBD however with elevated bilirubin concerned. will consider GI evaluation and ERCP if continues to trend up 3. Surgical wound- no signs of cellulitis, no fever or leukocytosis. u/s negative for underlying abscess. will d/c abx at this time. request surgery to come and evaluate the wound. 4. Hypokalemia- Kcl 40meq 5. Hypomagnesemia- Mg 800mg 6. DVT ppx- hep sq Visit type - Emergency Visit Emergency Visit: Yes ED Registration Date: 06/02/16 Care time: The patient presented to the Emergency Department on the above date and was hospitalized for further evaluation of their emergent condition. - New Patient This patient is new to me today: Yes Date on this admission: 06/03/16 - Critical Care Critical Care patient: No - Discharge Referral Referred to [facility] No
[2016-06-03] MEDS ORDERED: POTASSIUM CHLORIDE TABS 20 MEQ TABLET.ER (FP) PO ONE (16:07)
[2016-06-03] MEDS: MAGNESIUM OXIDE 400 MG TABLET (FP) PO ONE ×2 (16:08→17:17)
[2016-06-03] MEDS: POTASSIUM CHLORIDE 40 MEQ/30 ML UNIT DOSE CUP PO ONE ×2 (16:08→17:17)
[2016-06-03] MEDS ORDERED: MAGNESIUM OXIDE 400 MG TABLET (FP) ONE (16:08)
[2016-06-03] MEDS ORDERED: DOCUSATE SODIUM 100 MG CAPSULE (FP) PO ONE (16:10)
[2016-06-03 19:13] LABS: THYROID STIMULATING HORMONE 0.33 uIU/ml (0.358-3.74)
[2016-06-03] MEDS: ATORVASTATIN CA 20 MG TABLET (FP) PO SCH (21:25)
[2016-06-03] MEDS: SENNOSIDES 8.6MG TABLET (FP) PO SCH (21:26)
[2016-06-04] MEDS: FUROSEMIDE 40 MG TABLET (FP) PO SCH (00:45)
[2016-06-04] MEDS: CLINDAMYCIN HCL 150 MG CAPSULE (FP) PO SCH (00:45)
[2016-06-04] MEDS ORDERED: oxyCODONE HCL 5 MG TABLET ONE (01:48)
[2016-06-04] MEDS ORDERED: ACETAMINOPHEN 325 MG TABLET (FP) ONE (01:49)
[2016-06-04] MEDS: OXYCODONE/APAP 5/325MG COMBO TABLET PO PRN (01:55)
--- NOTE | 2016-06-04 02:19 | HOSP ---
Addendum entered and electronically signed by Caty Jarrett RES 06/04/16 05 :06: Patient had 12 runs of v tach, EKG is attached in the chart. Patient denied chest pain, sob, palpitations. Original Note: Subjective - Review of Symptoms Musculoskeletal: Yes: Other (b/L leg pain) Physical Examination Vital Signs: Vital Signs Temperature 98.6 F 06/03/16 22:00 Pulse Rate 90 06/03/16 22:00 Respiratory Rate 18 06/03/16 22:00 Blood Pressure 117/84 06/03/16 22:00 O2 Sat by Pulse Oximetry (%) 99 06/03/16 22:00 Labs: CBC, BMP 06/03/16 06:15 06/03/16 06:15 Hospitalist Encounter Assessment: Was informed by the nurse that patient is complaining of leg pain. Immediately went to see the patient. She mentioned that pain started from her leg going up to the abdomen. She pointed and showed that its more painful on the wound she has on the upper right abdomen. On Examination of B/L lower extremities B/L pitting edema, Homans sign positive. Duplex of lower extremities sent. Before I arrived to see the patient, she had received percocet. Case seen and discussed with Dr. Victor. Visit type - Emergency Visit Emergency Visit: Yes ED Registration Date: 06/02/16 Care time: The patient presented to the Emergency Department on the above date and was hospitalized for further evaluation of their emergent condition. - New Patient This patient is new to me today: No - Critical Care Critical Care patient: No
[2016-06-04] MEDS: LEVOTHYROXINE NA 75 MCG TABLET (FP) PO SCH (06:26)
[2016-06-04] MEDS: HEPARIN NA (PORCINE) 5,000 UNITS/ML 1ML VIAL SQ SCH ×3 (06:26→22:20)
[2016-06-04] MEDS: FUROSEMIDE 40 MG/4 ML INJECTABLE VIAL IVPUSH SCH ×2 (06:26→16:48)
[2016-06-04] MEDS: DOCUSATE SODIUM 100 MG CAPSULE (FP) PO SCH ×3 (06:27→22:20)
[2016-06-04 08:20] LABS: ALBUMIN 3.1 g/dl (3.4-5.0); ANION GAP 8 (8-16); BILIRUBIN,TOTAL 2.6 mg/dL (0.2-1.0); CALCIUM 8.7 mg/dL (8.5-10.1); CO2 33 mmol/L (21-32); CREATININE 0.9 mg/dL (0.55-1.02); GLUCOSE,RANDOM 83 mg/dL (74-106); SGOT/AST 34 U/L (15-37); SGPT/ALT 23 U/L (12-78); TOT PROT 6.5 g/dl (6.4-8.2); URIC ACID 8.3 mg/dL (2.6-7.2)
[2016-06-04 08:21] LABS: ALK PHOS 133 U/L (45-117)
--- NOTE | 2016-06-04 09:44 | PN ---
Progress Note (short form) - Note Progress Note: c/o dyspnea at rest and worse when laying flat. states abdominal pain in the evening but not today. denies CP, SOB,fever, chills, N/V/C/D Current Medications Generic Name Dose Route Start Last Admin Trade Name Freq PRN Reason Stop Dose Admin Albuterol Sulfate 1 amp 06/02/16 21:56 Ventolin 0.083% Nebulizer Soln - NEB Q8H PRN SHORT OF BREATH/WHEEZING Amlodipine Besylate 10 mg 06/03/16 10:00 06/03/16 11:24 Norvasc - PO Not Given DAILY [facility] Atorvastatin Calcium 20 mg 06/02/16 22:00 06/03/16 21:25 Lipitor - PO 20 mg HS [facility] Administration Docusate Sodium 100 mg 06/02/16 22:00 06/04/16 06:27 Colace - PO Not Given TID [facility] Furosemide 40 mg 06/04/16 06:00 06/04/16 06:26 Lasix Injection - IVPUSH 40 mg BID@0600,1400 [facility] Administration Heparin Sodium (Porcine) 5,000 unit 06/03/16 06:00 06/04/16 06:26 Heparin - SQ Not Given TID [facility] Levothyroxine Sodium 75 mcg 06/03/16 07:00 06/04/16 06:26 Synthroid - PO 75 mcg DAILY@0700 [facility] Administration Lisinopril 10 mg 06/02/16 22:00 06/03/16 11:00 Prinivil PO Not Given DAILY [facility] Metoprolol Succinate 200 mg 06/02/16 22:00 06/03/16 11:00 Toprol Xl - PO Not Given DAILY [facility] Olanzapine 5 mg 06/03/16 10:00 06/03/16 21:26 Zyprexa - PO Not Given BID [facility] Oxycodone/Acetaminophen 2 combo 06/02/16 21:16 06/04/16 01:55 Percocet 5/325 - PO 2 combo Q6H PRN Administration PAIN LEVEL 6-10 Senna 2 tab 06/02/16 22:00 06/03/16 21:26 Senna - PO Not Given HS [facility] Spironolactone 25 mg 06/03/16 10:00 06/03/16 11:00 Aldactone - PO Not Given DAILY [facility] Last Vital Signs Temp Pulse Resp BP Pulse Ox 97.5 F L 70 20 121/70 99 06/04/16 06:00 06/04/16 07:58 06/04/16 07:58 06/04/16 07:58 06/03/16 22:00 Intake & Output 06/01/16 06/02/16 06/03/16 06/04/16 23:59 23:59 23:59 23:59 Intake Total 50 Balance 50 Weight 145 lb 160 lb 163 lb 6.4 oz General NAD CV S1 S2 RRR Lungs CTA B/L no wheezing/rales/rhonchi ABdomen soft tender in RUQ at incision site open 1 cm no warmth or erythema, no drainage appreciated. ND, no rebound or guarding, negative smith sign Extremities 1+ pitting edema B/L CBCD WBC 7.0 K/mm3 (4.0-10.0) 06/03/16 06:15 RBC 5.16 M/mm3 (3.60-5.2) 06/03/16 06:15 Hgb 13.4 GM/dL (10.7-15.3) 06/03/16 06:15 Hct 41.4 % (32.4-45.2) 06/03/16 06:15 MCV 80.4 fl (80-96) 06/03/16 06:15 MCHC 32.3 g/dl (32.0-36.0) 06/03/16 06:15 RDW 19.1 % (11.6-15.6) H 06/03/16 06:15 Plt Count 245 K/MM3 (134-434) 06/03/16 06:15 MPV 8.3 fl (7.5-11.1) 06/03/16 06:15 CMP Sodium 137 mmol/L (136-145) 06/04/16 05:35 Potassium 3.4 mmol/L (3.5-5.1) L 06/04/16 05:35 Chloride 96 mmol/L (98-107) L 06/04/16 05:35 Carbon Dioxide 33 mmol/L (21-32) H D 06/04/16 05:35 Anion Gap 8 (8-16) 06/04/16 05:35 BUN 19 mg/dL (7-18) H 06/04/16 05:35 Creatinine 0.9 mg/dL (0.55-1.02) 06/04/16 05:35 Creat Clearance w eGFR > 60 (>60) 06/04/16 05:35 Random Glucose 83 mg/dL (74-106) 06/04/16 05:35 Calcium 8.7 mg/dL (8.5-10.1) 06/04/16 05:35 Total Bilirubin 2.6 mg/dL (0.2-1.0) H D 06/04/16 05:35 AST 34 U/L (15-37) 06/04/16 05:35 ALT 23 U/L (12-78) 06/04/16 05:35 Alkaline Phosphatase 133 U/L (45-117) H 06/04/16 05:35 Total Protein 6.5 g/dl (6.4-8.2) 06/04/16 05:35 Albumin 3.1 g/dl (3.4-5.0) L 06/04/16 05:35 CARDIAC ENZYMES Creatine Kinase 303 IU/L (26-192) H D 06/02/16 19:20 Troponin I 0.18 ng/ml (0.00-0.05) H 06/03/16 06:15 A/P 60yo F wtih CHF, MA with stents x2, defibrillator/pacemaker and CABG, HTN, HLD, hypercholesterolemia, depression, CAD, hypothyroidism, kidney stone and peripheral neuropathy presented to the ER and was admitted for further evaluation of their emergent condition 1. Acute systolic CHF exacerbation- tropinin stable x3. echo pending. cont lasix IV. will transition to po tomorrow. strict I&O, daily weights, cardio consulted. monitor electrolytes. 2. Abdominal pain- retained stone? bilirubin remains elevated. will consult GI. pt states she followed up with Dr Stevens as outpatient will consult if requires ERCP. 3. Surgical wound- no signs of cellulitis, no fever or leukocytosis. plan to be evaluated by surgery tomorrow 4. Hypokalemia- refusing oral potassium, will give 10meq x2 5. Hypomagnesemia- resolved 6. Hypothyroid- TSH low, will decrease LT4 to 50mcg, will need repeat in 6 weeks 7. elevated uric acid- pt has been c/o foot pain manily in the joints, no sign of acute gout flare but may be related to elevated uric acid level. will start colchine trial for several days and monitor for improvement. 8. DVT ppx- hep sq Visit type - Emergency Visit Emergency Visit: Yes ED Registration Date: 06/02/16 Care time: The patient presented to the Emergency Department on the above date and was hospitalized for further evaluation of their emergent condition. - New Patient This patient is new to me today: No - Critical Care Critical Care patient: No - Discharge Referral Referred to [facility] No
[2016-06-04] MEDS: SPIRONOLACTONE 25 MG TABLET (FP) PO SCH (10:09)
[2016-06-04] MEDS: LISINOPRIL 10 MG TABLET (FP) PO SCH (10:10)
[2016-06-04] MEDS: METOPROLOL SUCCINATE 100 MG TAB.SR.24H (FP) PO SCH (10:10)
[2016-06-04] MEDS: OLANZapine 5 MG TABLET PO SCH ×2 (10:10→22:21)
[2016-06-04] MEDS: amLODIPine BESYLATE 10 MG TABLET (FP) PO SCH (10:10)
[2016-06-04] MEDS: KCL 10 MEQ IVPB 100 ML IVPB SCH ×2 (10:46→16:45)
[2016-06-04] MEDS ORDERED: POTASSIUM CHLORIDE TABS 20 MEQ TABLET.ER (FP) PO ONE (11:39)
[2016-06-04] MEDS: COLCHICINE 0.6 MG TABLET (FP) PO SCH (12:40)
--- NOTE | 2016-06-04 15:02 | CONSULT ---
Consult Consult Specialty:: Gastroenterology Referred by:: Dr Hines Reason for Consultation:: Jaundice - History of Present Illness Chief Complaint: Epigastric and RUQ pain History of Present Illness: 60W is admitted for pain and clear fluid seepage from a RUQ lap choly incision. She underwent a lap choly for acalculous cholecystitis with Dr Chaudhry on . He performed an intraoperative cholangiogram which suggested a distal CBD stricture. She has an AICD which precludes MRCP. She has a h/o chronic abdominal pain and fluctuations in bilirubin and alkaline phosphatase. Her chronic pain did not resolve with the cholecystectomy. Before interviewing Nida I reminded her that she refused consultations by me and my associate Dr Shah in the past. She asked that my entire team care for her at this point. She has never had an EGD and she believes that she had a colonoscopy about 10 years ago which was unrevealing. She tells me that she has lost over 100 lbs over the past few due to abdominal pain and numerous food intolerances. She denies any FH of liver disease or GI cancer . No transfusions, IVDA or Etoh abuse but has been tattooed. - History Source History Provided By: Patient Limitations to Obtaining History: No Limitations - Past Medical History [employer]: Yes: Peripheral Neuropathy Cardio/Vascular: Yes: CAD (CABG 2003, stents x2, now with defibrillator), CHF, HTN, Hyperlipdemia, [place] Pulmonary: Yes: COPD Gastrointestinal: Yes: Other (Chronic abdominal pain and food intolerances. Had PEG placed 11/03 after suffering vocal cord damage ( EMS intubation). PEG was subsequently removed. ) Hepatobiliary: Yes: Cholecystitis Renal/: Yes: Renal Calculi ...: No Psych: Yes: Depression Musculoskeletal: Yes: Chronic low back pain Endocrine: Yes: Hypothyroidism - Past Surgical History Past Surgical History: Yes: CABG, Cholecystectomy, Colonoscopy, Joint Replacement (right THR), Stent (X2) Additional Surgical History: 11/03/PEG insertion after vocal cord damage/ dysphagia related to EMS intubation 11/03. 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 Place of : [facility] History of Recent Travel: No Home Medications - Allergies Allergies/Adverse Reactions: Allergies Allergy/AdvReac Type Severity Reaction Status Date / Time aspirin AdvReac Mild gi upset Verified 06/02/16 11:19 - Home Medications Home Medications: Ambulatory Orders Atorvastatin Ca [Lipitor] 20 mg PO DAILY 05/29/12 Albuterol Sulfate [Proair Hfa -] 1 - 2 inh PO TID 06/10/14 Furosemide [Lasix -] 40 mg PO BID 06/10/14 Metoprolol Succinate [Toprol XL -] 200 mg PO DAILY 10/10/14 Levothyroxine [Synthroid -] 75 mcg PO DAILY 09/10/15 Lisinopril [Prinivil] 10 mg PO DAILY 10/03/15 Docusate Sodium [Colace -] 100 mg PO TID #90 capsule 10/04/15 Sennosides [Senna -] 2 tab PO HS #60 tablet 10/04/15 Acetaminophen [Tylenol .Regular Strength -] 650 mg PO Q4H PRN #30 tablet Aclidinium [place] [Tudorza -] 1 puff IH BID #10 inhaler 05/03/16 Budesonide/Formeterol Fumarate [SYMBICORT 160/4.5mcg -] 1 puff IH BID #10 inhaler 05/03/16 Furosemide [Lasix -] 40 mg PO BID@0600,1400 #60 tablet 05/03/16 Gabapentin [Neurontin -] 100 mg PO DAILY #30 capsule 05/03/16 Hydralazine HCl [Apresoline -] 10 mg PO TID #90 tablet 05/03/16 Isosorbide Mononitrate [Imdur -] 30 mg PO DAILY #30 tab.sr.24h 05/03/16 Olanzapine [Zyprexa -] 5 mg PO BID #60 tablet 05/03/16 Spironolactone [Aldactone -] 25 mg PO DAILY #60 tablet 05/03/16 Family Disease History - Family Disease History Family Disease History: Diabetes: Sister (s/p CABG in her 50s), Heart Disease: Father (had unknown cancer), Mother (lived to ), Sister, [place]: Father Other Family History: no liver disease Review of Systems - Review of Systems Constitutional: reports: Unintentional Wgt. Loss Eyes: reports: No Symptoms HENT: reports: No Symptoms Neck: reports: No Symptoms Cardiovascular: reports: No Symptoms Respiratory: reports: Exercise Intolerance, SOB on Exertion Gastrointestinal: reports: Abdominal Pain Musculoskeletal: reports: Joint Pain Neurological: reports: Numbness, Parasthesia Physical Exam-GI Vital Signs: Vital Signs Temperature 97.5 F L 06/04/16 06:00 Pulse Rate 87 06/04/16 07:58 Respiratory Rate 20 06/04/16 07:58 Blood Pressure 121/83 06/04/16 07:58 O2 Sat by Pulse Oximetry (%) 99 06/03/16 22:00 CBC, BMP 06/03/16 06:15 06/04/16 05:35 Current Medications Generic Name Dose Route Start Last Admin Trade Name Freq PRN Reason Stop Dose Admin Albuterol Sulfate 1 amp 06/02/16 21:56 Ventolin 0.083% Nebulizer Soln - NEB Q8H PRN SHORT OF BREATH/WHEEZING Amlodipine Besylate 10 mg 06/03/16 10:00 06/04/16 10:10 Norvasc - PO Not Given DAILY [facility] Atorvastatin Calcium 20 mg 06/02/16 22:00 06/03/16 21:25 Lipitor - PO 20 mg HS [facility] Administration Colchicine 0.6 mg 06/04/16 10:30 06/04/16 12:40 Colcrys - PO Not Given DAILY [facility] Docusate Sodium 100 mg 06/02/16 22:00 06/04/16 06:27 Colace - PO Not Given TID [facility] Furosemide 40 mg 06/04/16 06:00 06/04/16 06:26 Lasix Injection - IVPUSH 40 mg BID@0600,1400 [facility] Administration Heparin Sodium (Porcine) 5,000 unit 06/03/16 06:00 06/04/16 06:26 Heparin - SQ Not Given TID [facility] Levothyroxine Sodium 50 mcg 06/05/16 07:00 Synthroid - PO DAILY@0700 [facility] Lisinopril 10 mg 06/02/16 22:00 06/04/16 10:10 Prinivil PO Not Given DAILY [facility] Metoprolol Succinate 200 mg 06/02/16 22:00 06/04/16 10:10 Toprol Xl - PO Not Given DAILY [facility] Olanzapine 5 mg 06/03/16 10:00 06/04/16 10:10 Zyprexa - PO Not Given BID [facility] Oxycodone/Acetaminophen 2 combo 06/02/16 21:16 06/04/16 01:55 Percocet 5/325 - PO 2 combo Q6H PRN Administration PAIN LEVEL 6-10 Senna 2 tab 06/02/16 22:00 06/03/16 21:26 Senna - PO Not Given HS [facility] Spironolactone 25 mg 06/03/16 10:00 06/04/16 10:09 Aldactone - PO Not Given DAILY [facility] Constitutional: Yes: No Distress Eyes: Yes: Conjunctiva Clear HENT: Yes: Atraumatic Neck: Yes: Supple Cardiovascular: Yes: Regular Rate and Rhythm, Murmur (holosystolic 06/26), Other ( healed median sternotomy) Respiratory: Yes: CTA Bilaterally Gastrointestinal Inspection: Yes: Scars (LUQ old PEG and lap choly incisions. No induration or seepage at present) ...Auscultate: Yes: Normoactive Bowel Sounds ...Palpate: Yes: Tenderness (mild at LUQ incision site) ...Rectal Exam: Yes: Guaiac Negative, Other (no masses) Edema: No Labs: CBC, BMP 06/04/16 05:35 Laboratory Tests 05/28/12 05/15/14 06/10/14 21:00 12:05 21:00 Total Bilirubin 0.3 0.7 D 1.4 H D Direct Bilirubin AST 14 L Alkaline Phosphatase 63 101 Lipase 06/12/14 06/17/14 09/08/14 08:00 06:45 23:38 Total Bilirubin 0.6 D Direct Bilirubin AST 27 D 104 H D 16 D Alkaline Phosphatase Lipase 10/10/14 03/04/15 03/05/15 07:40 13:00 06:00 Total Bilirubin 2.0 H D 1.3 H D Direct Bilirubin AST Alkaline Phosphatase 128 D 97 Lipase 73 03/08/15 03/09/15 03/10/15 07:00 07:10 06:30 Total Bilirubin 1.6 H Direct Bilirubin 1.0 H 0.9 H AST 27 73 H D 90 H D Alkaline Phosphatase Lipase 04/30/15 05/18/15 05/19/15 11:00 11:12 05:40 Total Bilirubin 0.9 D 2.5 H D 1.8 H D Direct Bilirubin 1.5 H D AST 17 D Alkaline Phosphatase Lipase 05/20/15 06/04/15 06/04/15 05:40 11:54 11:54 Total Bilirubin Direct Bilirubin 0.8 H D AST Alkaline Phosphatase 100 Lipase 74 06/17/15 07/01/15 07/02/15 18:19 08:20 07:45 Total Bilirubin 1.5 H 2.0 H D Direct Bilirubin AST Alkaline Phosphatase 127 H 103 Lipase 07/04/15 07/05/15 09/10/15 09:45 07:00 14:21 Total Bilirubin 1.5 H 1.0 D 3.0 H D Direct Bilirubin AST 26 Alkaline Phosphatase 120 H 123 H Lipase 10/03/15 03/15/16 03/17/16 04:30 23:26 09:10 Total Bilirubin 2.1 H D 2.5 H 3.2 H D Direct Bilirubin AST 71 H D Alkaline Phosphatase 194 H D Lipase 03/25/16 03/26/16 03/30/16 01:20 07:50 21:30 Total Bilirubin 1.3 H D 2.3 H D Direct Bilirubin 1.3 H D AST Alkaline Phosphatase Lipase 04/01/16 04/03/16 04/04/16 10:40 05:15 08:05 Total Bilirubin 3.2 H D 1.7 H D Direct Bilirubin AST 29 Alkaline Phosphatase 114 D Lipase 04/25/16 04/26/16 04/27/16 10:00 05:35 05:35 Total Bilirubin 2.0 H D 2.3 H Direct Bilirubin AST Alkaline Phosphatase 174 H D Lipase 04/28/16 04/29/16 05/01/16 10:50 05:50 08:00 Total Bilirubin 2.4 H 2.7 H 1.7 H D Direct Bilirubin 1.8 H D AST Alkaline Phosphatase 142 H Lipase 05/03/16 05/07/16 06/02/16 06:00 15:31 12:00 Total Bilirubin 1.4 H 2.5 H D Direct Bilirubin AST 31 Alkaline Phosphatase 127 H 166 H D 165 H Lipase 48 L 06/03/16 06/04/16 06:15 05:35 Total Bilirubin 3.4 H D 2.6 H D Direct Bilirubin AST 37 34 Alkaline Phosphatase 147 H 133 H Lipase Imaging - Results Cat Scan: Report Reviewed (normal pancreas on 03/05 CT) Ultrasound: Image Reviewed (no ductal dilation or obvious residual stones or tumor) Assessment/Plan The fluctuations in LFTs are more suggestive of an ampullary tumor than a stritcure, pancreatic cancer or cholangiocarcinoma but I have discussed all of these posibilities in the context of her weight loss. I have discussed the potential need for ERCP, dilation of a stricture and stenting. I informed her of the potential risks of perforation, hemorrhage and the pain, vomiting and multiorgan failure that can develop after ERCP. I suggested that these be done at a tertiary care center with more expertise but she wants me to attempt this first. I will order a CT scan to look for more evidence of a tumor, stricture or sclerosing cholangitis before proceeding. I will also screen for chronic liver diseases such as GAXIOLA.
[2016-06-04] MEDS: ATORVASTATIN CA 20 MG TABLET (FP) PO SCH (22:20)
[2016-06-04] MEDS: SENNOSIDES 8.6MG TABLET (FP) PO SCH (22:21)
--- NOTE | 2016-06-05 02:17 | PN ---
Progress Note, Physician Chief Complaint: Pt A&Ox3; no chest pain; +dyspnea on mild exertion. History of Present Illness: The patient is a 60-year-old black female, with a significant past medical history of severe systolic CHF, HTN, hypercholesterolemia, hypothyroidism, pacemaker/defibrillator, s/p CABG 2003; s/p coronary stents, s/p cholecystectomy , who presents to the emergency department with abdominal pain. The patient reports that the abdominal pain is located in the right abdomen, and radiates to the chest. She reports that the abdominal pain is the most severe in the region where she had a cholecystectomy. The patient denies shortness of breath, headache and dizziness. The patient denies fever, chills, nausea, vomit, diarrhea and constipation. The patient denies dysuria, frequency, urgency and hematuria. Allergies: aspirin Past surgical history: cholecystectomy 04/2016, CABG 2003, bypass, stents x2 Social history: Current everyday smoker - Current Medication List Current Medications: Active Medications Albuterol Sulfate (Ventolin 0.083% Nebulizer Soln -) 1 amp NEB Q8H PRN PRN Reason: SHORT OF BREATH/WHEEZING Amlodipine Besylate (Norvasc -) 10 mg PO DAILY [facility] Last Admin: 06/04/16 10:10 Dose: Not Given Atorvastatin Calcium (Lipitor -) 20 mg PO HS [facility] Last Admin: 06/04/16 22:20 Dose: 20 mg Colchicine (Colcrys -) 0.6 mg PO DAILY [facility] Last Admin: 06/04/16 12:40 Dose: Not Given Docusate Sodium (Colace -) 100 mg PO TID [facility] Last Admin: 06/04/16 22:20 Dose: Not Given Furosemide (Lasix Injection -) 40 mg IVPUSH BID@0600,1400 [facility] Last Admin: 06/04/16 16:48 Dose: 40 mg Heparin Sodium (Porcine) (Heparin -) 5,000 unit SQ TID [facility] Last Admin: 06/04/16 22:20 Dose: Not Given Levothyroxine Sodium (Synthroid -) 50 mcg PO DAILY@0700 [facility] Lisinopril (Prinivil) 10 mg PO DAILY [facility] Last Admin: 06/04/16 10:10 Dose: Not Given Metoprolol Succinate (Toprol Xl -) 200 mg PO DAILY [facility] Last Admin: 06/04/16 10:10 Dose: Not Given Olanzapine (Zyprexa -) 5 mg PO BID [facility] Last Admin: 06/04/16 22:21 Dose: Not Given Oxycodone/Acetaminophen (Percocet 5/325 -) 2 combo PO Q6H PRN PRN Reason: PAIN LEVEL 6-10 Last Admin: 06/04/16 01:55 Dose: 2 combo Senna (Senna -) 2 tab PO HS [facility] Last Admin: 06/04/16 22:21 Dose: Not Given Spironolactone (Aldactone -) 25 mg PO DAILY [facility] Last Admin: 06/04/16 10:09 Dose: Not Given - Objective Vital Signs: Vital Signs Temperature 96.6 F L 06/04/16 21:00 Pulse Rate 85 06/04/16 21:00 Respiratory Rate 19 06/04/16 21:00 Blood Pressure 119/74 06/04/16 21:00 O2 Sat by Pulse Oximetry (%) 98 06/04/16 21:00 Constitutional: Yes: Calm Eyes: Yes: WNL HENT: Yes: WNL Neck: Yes: WNL Cardiovascular: Yes: Pulse Irregular Respiratory: Yes: Diminished Gastrointestinal: Yes: Soft ...Rectal Exam: Yes: Deferred Genitourinary: No: Anuria Breast(s): Yes: WNL Musculoskeletal: Yes: Back Pain, Joint Stiffness, Muscle Weakness Extremities: Yes: Cool Edema: Yes Edema: LLE: 1+, RLE: 1+ Peripheral Pulses WNL: No Peripheral Pulses: Left Doralis Pedis: 1+, Right Dorsalis Pedis: 1+ Integumentary: Yes: WNL Neurological: Yes: Alert, Oriented, Weakness Psychiatric: Yes: Alert, Oriented Labs: CBC, BMP 06/04/16 05:35 Abnormal Lab Results 06/04/16 05:35 Potassium 3.4 L Chloride 96 L Carbon Dioxide 33 H D BUN 19 H Uric Acid 8.3 H Total Bilirubin 2.6 H D Alkaline Phosphatase 133 H Albumin 3.1 L - ....Imaging Chest X-ray: Image Reviewed (mild CHF) Problem List - Problems (1) Postoperative abdominal pain Assessment/Plan: f/u with surgeon regarding post-cholecystectomy non-healed abdominal lap site. F/u with gastrocnterologist (elevated bilirubin). Code(s): R10.9 - UNSPECIFIED ABDOMINAL PAIN G89.18 - OTHER ACUTE POSTPROCEDURAL PAIN (2) Dyspepsia Code(s): K30 - FUNCTIONAL DYSPEPSIA (3) Hypertension Assessment/Plan: On amlodipine, spironolactone, metoprolol, lisinopril (may increase dose of the latter), and furosemide. Code(s): I10 - ESSENTIAL (PRIMARY) HYPERTENSION (4) Hypothyroidism Code(s): E03.9 - HYPOTHYROIDISM, UNSPECIFIED (5) Status post THR (total hip replacement) Code(s): Z96.649 - PRESENCE OF UNSPECIFIED ARTIFICIAL HIP JOINT (6) Tobacco use disorder Assessment/Plan: The paramount need to stop smoking was again discussed. Code(s): Z72.0 - TOBACCO USE (7) Coronary artery disease Code(s): I25.10 - ATHSCL HEART DISEASE OF [place] CORONARY ARTERY W/O ANG PCTRS (8) Edema Code(s): R60.9 - EDEMA, UNSPECIFIED Qualifiers: Edema type: generalized Qualified Code(s): R60.1 - Generalized edema (9) Hypoalbuminemia Code(s): E88.09 - OT DISORDERS OF PLASMA-PROTEIN METABOLISM, NEC (10) Risk for coronary artery disease greater than 20% in next 10 years Code(s): Z91.89 - OT PERSONAL RISK FACTORS, NOT ELSEWHERE CLASSIFIED (11) Chronic systolic congestive heart failure Assessment/Plan: continue meroprolol, spironolactone, lisinopril, amlodipne, and furosemide. F/u BUN/Cr, electrolytes (replete K); Is and Os, daily weight. Code(s): I50.22 - CHRONIC SYSTOLIC (CONGESTIVE) HEART FAILURE (12) Depression Code(s): F32.9 - MAJOR DEPRESSIVE DISORDER, SINGLE EPISODE, UNSPECIFIED (13) Diabetes Code(s): E11.9 - TYPE 2 DIABETES MELLITUS WITHOUT COMPLICATIONS (14) Hyperlipidemia Code(s): E78.5 - HYPERLIPIDEMIA, UNSPECIFIED (15) ICD (implantable cardioverter-defibrillator) in place Code(s): Z95.810 - PRESENCE OF AUTOMATIC (IMPLANTABLE) CARDIAC DEFIBRILLATOR
[2016-06-05] MEDS ORDERED: ACETAMINOPHEN 325 MG TABLET (FP) ONE (02:41)
[2016-06-05] MEDS ORDERED: oxyCODONE HCL 5 MG TABLET ONE (02:41)
[2016-06-05] MEDS: OXYCODONE/APAP 5/325MG COMBO TABLET PO PRN (02:45)
[2016-06-05] MEDS: HEPARIN NA (PORCINE) 5,000 UNITS/ML 1ML VIAL SQ SCH ×3 (06:18→14:36)
[2016-06-05] MEDS: LEVOTHYROXINE NA 50 MCG TABLET (FP) PO SCH (06:18)
[2016-06-05] MEDS: DOCUSATE SODIUM 100 MG CAPSULE (FP) PO SCH ×4 (06:18→21:24)
[2016-06-05] MEDS: FUROSEMIDE 40 MG/4 ML INJECTABLE VIAL IVPUSH SCH ×2 (06:20→14:28)
[2016-06-05 07:52] LABS: INR 1.49 (0.82-1.09); PROTHROMBIN TIME (PATIENT) 16.5 SEC (9.98-11.88)
[2016-06-05 08:06] LABS: ALBUMIN 3.4 g/dl (3.4-5.0); CALCIUM 8.6 mg/dL (8.5-10.1)
[2016-06-05 08:08] LABS: BILIRUBIN,TOTAL 2.2 mg/dL (0.2-1.0)
[2016-06-05 08:10] LABS: ALBUMIN 3.3 g/dl (3.4-5.0); BILIRUBIN,DIRECT 1.5 mg/dL (0.0-0.2); BILIRUBIN,TOTAL 2.1 mg/dL (0.2-1.0); C-REACTIVE PROTEIN 0.9 MG/DL (0.00-0.3); TOT PROT 6.8 g/dl (6.4-8.2)
[2016-06-05 09:36] LABS: FERRITIN 47.705 ng/ml (6.9-282.5)
[2016-06-05] MEDS: SPIRONOLACTONE 25 MG TABLET (FP) PO SCH (09:41)
[2016-06-05] MEDS: COLCHICINE 0.6 MG TABLET (FP) PO SCH (09:41)
[2016-06-05] MEDS: amLODIPine BESYLATE 10 MG TABLET (FP) PO SCH (09:41)
[2016-06-05] MEDS: OLANZapine 5 MG TABLET PO SCH ×2 (09:42→21:27)
[2016-06-05] MEDS: METOPROLOL SUCCINATE 100 MG TAB.SR.24H (FP) PO SCH (09:42)
[2016-06-05] MEDS: LISINOPRIL 10 MG TABLET (FP) PO SCH (09:42)
[2016-06-05] MEDS: ALBUTEROL SO4 0.083% IH SOL 2.5 MG/3 ML VIAL.NEB. NEB PRN (10:44)
--- NOTE | 2016-06-05 12:19 | PN ---
Progress Note (short form) - Note Progress Note: GI NOte: Nida is in CT scan. Bilirubin remain slightly elevated with elevated GGTP and alkaline phosphatase. Await CT results to determine whether or not to proceed with ERCP tomorrow. The intraoperative cholangiogram films are not available for review.
[2016-06-05] MEDS: PHYTONADIONE 10 MG/1 ML AMP IM SCH ×2 (14:28→14:36)
[2016-06-05] MEDS ORDERED: POTASSIUM CHLORIDE TABS 20 MEQ TABLET.ER (FP) PO ONE ×2 (15:07→18:00)
--- NOTE | 2016-06-05 15:08 | PN ---
Progress Note (short form) - Note Progress Note: continues to have intermittent abdominal pain, unable to relate it to eating. + orthopnea denies CP, SOB,fever, chills, N/V/C/D, or cough Current Medications Generic Name Dose Route Start Last Admin Trade Name Freq PRN Reason Stop Dose Admin Albuterol Sulfate 1 amp 06/02/16 21:56 06/05/16 10:44 Ventolin 0.083% Nebulizer Soln - NEB 1 amp Q8H PRN Administration SHORT OF BREATH/WHEEZING Amlodipine Besylate 10 mg 06/03/16 10:00 06/05/16 09:41 Norvasc - PO Not Given DAILY [facility] Atorvastatin Calcium 20 mg 06/02/16 22:00 06/04/16 22:20 Lipitor - PO 20 mg HS [facility]INA Administration Colchicine 0.6 mg 06/04/16 10:30 06/05/16 09:41 Colcrys - PO Not Given DAILY [facility] Docusate Sodium 100 mg 06/02/16 22:00 06/05/16 14:35 Colace - PO Not Given TID [facility] Furosemide 40 mg 06/04/16 06:00 06/05/16 14:28 Lasix Injection - IVPUSH 40 mg BID@0600,1400 [facility] Administration Heparin Sodium (Porcine) 5,000 unit 06/03/16 06:00 06/05/16 14:36 Heparin - SQ 06/05/16 15:00 Not Given TID [facility] Levothyroxine Sodium 50 mcg 06/05/16 07:00 06/05/16 06:18 Synthroid - PO Not Given DAILY@0700 [facility] Lisinopril 10 mg 06/02/16 22:00 06/05/16 09:42 Prinivil PO Not Given DAILY [facility] Metoprolol Succinate 200 mg 06/02/16 22:00 06/05/16 09:42 Toprol Xl - PO Not Given DAILY [facility] Olanzapine 5 mg 06/03/16 10:00 06/05/16 09:42 Zyprexa - PO Not Given BID [facility] Oxycodone/Acetaminophen 2 combo 06/02/16 21:16 06/05/16 02:45 Percocet 5/325 - PO 2 combo Q6H PRN Administration PAIN LEVEL 6-10 Phytonadione 10 mg 06/05/16 13:00 06/05/16 14:36 Aqua Mephyton Injection - IM 06/08/16 12:59 Not Given DAILY [facility] Senna 2 tab 06/02/16 22:00 06/04/16 22:21 Senna - PO Not Given HS [facility] Spironolactone 25 mg 06/03/16 10:00 06/05/16 09:41 Aldactone - PO Not Given DAILY [facility] Last Vital Signs Temp Pulse Resp BP Pulse Ox 97.2 F L 80 18 126/68 98 06/05/16 06:00 06/05/16 11:26 06/05/16 11:26 06/05/16 11:26 06/05/16 09:00 Intake & Output 06/02/16 06/03/16 06/04/16 06/05/16 23:59 23:59 23:59 23:59 Intake Total 50 50 0 Balance 50 50 0 Weight 145 lb 160 lb 163 lb 6.4 oz 161 lb General NAD CV S1 S2 RRR Lungs CTA B/L no wheezing/rales/rhonchi ABdomen soft tender in RUQ at incision site open 1 cm no warmth or erythema, no drainage appreciated. ND, no rebound or guarding, negative smith sign Extremities 1+ pitting edema B/L CMP Sodium 138 mmol/L (136-145) 06/05/16 05:35 Potassium 3.7 mmol/L (3.5-5.1) 06/05/16 05:35 Chloride 97 mmol/L (98-107) L 06/05/16 05:35 Carbon Dioxide 35 mmol/L (21-32) H 06/05/16 05:35 Anion Gap 6 (8-16) L 06/05/16 05:35 BUN 21 mg/dL (7-18) H 06/05/16 05:35 Creatinine 1.0 mg/dL (0.55-1.02) 06/05/16 05:35 Creat Clearance w eGFR 56.18 (>60) 06/05/16 05:35 Calcium 8.6 mg/dL (8.5-10.1) 06/05/16 05:35 Total Bilirubin 2.1 mg/dL (0.2-1.0) H 06/05/16 05:35 AST 36 U/L (15-37) 06/05/16 05:35 ALT 24 U/L (12-78) 06/05/16 05:35 Alkaline Phosphatase 134 U/L (45-117) H 06/05/16 05:35 Total Protein 6.8 g/dl (6.4-8.2) 06/05/16 05:35 Albumin 3.3 g/dl (3.4-5.0) L 06/05/16 05:35 A/P 60yo F wtih CHF, IA with stents x2, defibrillator/pacemaker and CABG, HTN, HLD, hypercholesterolemia, depression, CAD, hypothyroidism, kidney stone and peripheral neuropathy presented to the ER and was admitted for further evaluation of their emergent condition 1. Acute systolic CHF exacerbation- decrease in weight by 2 pounds. echo pending. cont lasix IV. strict I&O, daily weights, cardio consulted. monitor electrolytes. 2. Abdominal pain- appreciate GI evaluation and recommendations. possible ampullary stricture or tumor. CT scan done this AM. awaiting results. plan for ERCP if stenting required. GGT elevated. other workup pending. cont to trend LFT. 3. Surgical wound- no signs of cellulitis, no fever or leukocytosis. plan to be evaluated by surgery today. likely will take time to slowly close by secondary intention 4. Hypokalemia- refusing IV and liquid potassium. will cont KCl 40meq po tablets. 5. Hypomagnesemia- resolved 6. Hypothyroid- TSH low, decreased LT4 to 50mcg, will need repeat in 6 weeks 7. elevated uric acid- pt has been c/o foot pain manily in the joints, no sign of acute gout flare but may be related to elevated uric acid level. will start colchine trial for several days and monitor for improvement. 8. DVT ppx- hep sq Visit type - Emergency Visit Emergency Visit: Yes ED Registration Date: 06/03/16 Care time: The patient presented to the Emergency Department on the above date and was hospitalized for further evaluation of their emergent condition. - New Patient This patient is new to me today: No - Critical Care Critical Care patient: No - Discharge Referral Referred to [facility] No
--- NOTE | 2016-06-05 15:18 | CONSULT ---
Consult Consult Specialty:: general surgery Reason for Consultation:: pain - History of Present Illness Chief Complaint: pain near incision History of Present Illness: pt is a 60F s/p lap naomi 05/02/16 for nonspecific epigastric pain. I have seen her as outpt and her pain did not improve with lap naomi though pathology did reveal chronic cholecystitis with +stones. IOC was done but limited. Patient c/o pain at incision in subxiphoid region. she says it drains occasionally. 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 Had PEG placed 11/03 after suffering vocal cord damage ( EMS intubation). PEG was subsequently removed. ) Hepatobiliary: Yes: Cholecystitis Renal/: Yes: Renal Calculi ...: No Psych: Yes: Depression Musculoskeletal: Yes: Chronic low back pain Endocrine: Yes: Hypothyroidism - Past Surgical History Past Surgical History: Yes: CABG, Cholecystectomy, Colonoscopy, Joint Replacement (right THR), Stent (X2) Additional Surgical History: 11/03/PEG insertion after vocal cord damage/ dysphagia related to EMS intubation 11/03. 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 History of Recent Travel: No Home Medications - Allergies Allergies/Adverse Reactions: Allergies Allergy/AdvReac Type Severity Reaction Status Date / Time aspirin AdvReac Mild gi upset Verified 06/02/16 11:19 - Home Medications Home Medications: Ambulatory Orders Atorvastatin Ca [Lipitor] 20 mg PO DAILY 05/29/12 Albuterol Sulfate [Proair Hfa -] 1 - 2 inh PO TID 06/10/14 Furosemide [Lasix -] 40 mg PO BID 06/10/14 Metoprolol Succinate [Toprol XL -] 200 mg PO DAILY 10/10/14 Levothyroxine [Synthroid -] 75 mcg PO DAILY 09/10/15 Lisinopril [Prinivil] 10 mg PO DAILY 10/03/15 Docusate Sodium [Colace -] 100 mg PO TID #90 capsule 10/04/15 Sennosides [Senna -] 2 tab PO HS #60 tablet 10/04/15 Acetaminophen [Tylenol .Regular Strength -] 650 mg PO Q4H PRN #30 tablet Aclidinium [place] [Tudorza -] 1 puff IH BID #10 inhaler 05/03/16 Budesonide/Formeterol Fumarate [SYMBICORT 160/4.5mcg -] 1 puff IH BID #10 inhaler 05/03/16 Furosemide [Lasix -] 40 mg PO BID@0600,1400 #60 tablet 05/03/16 Gabapentin [Neurontin -] 100 mg PO DAILY #30 capsule 05/03/16 Hydralazine HCl [Apresoline -] 10 mg PO TID #90 tablet 05/03/16 Isosorbide Mononitrate [Imdur -] 30 mg PO DAILY #30 tab.sr.24h 05/03/16 Olanzapine [Zyprexa -] 5 mg PO BID #60 tablet 05/03/16 Spironolactone [Aldactone -] 25 mg PO DAILY #60 tablet 05/03/16 Family Disease History - Family Disease History Family Disease History: Diabetes: Sister (s/p CABG in her 50s), Heart Disease: Father (had unknown cancer), Mother (lived to ), Sister, [place]: Father Other Family History: no liver disease Review of Systems - Review of Systems Constitutional: denies: Chills, Fever Eyes: denies: Blind Spots, Blurred Vision HENT: denies: Difficult Swallowing, Ear Discharge Neck: denies: Decreased ROM, Lumps Cardiovascular: reports: Shortness of Breath Respiratory: denies: Cough, Exercise Intolerance Gastrointestinal: reports: Abdominal Pain Genitourinary: denies: Burning, Discharge Breasts: denies: Breast Implants, Discharge from Nipple Musculoskeletal: denies: Back Pain, Crepitus Integumentary: denies: Blister, Bruising Neurological: denies: Change in Speech, Confusion Endocrine: denies: Excessive Sweating, Flushing Hematology/Lymphatic: denies: Easily Bruised, Excessive Bleeding Psychiatric: denies: Altered Sleep Pattern Physical Exam Vital Signs: Vital Signs Temperature 97.2 F L 06/05/16 06:00 Pulse Rate 80 06/05/16 11:26 Respiratory Rate 18 06/05/16 11:26 Blood Pressure 126/68 06/05/16 11:26 O2 Sat by Pulse Oximetry (%) 98 06/05/16 09:00 Constitutional: Yes: No Distress, Calm Eyes: Yes: Conjunctiva Clear, EOM Intact HENT: Yes: Atraumatic, Normocephalic Neck: Yes: Supple, Trachea Midline Cardiovascular: Yes: Regular Rate and Rhythm Respiratory: Yes: Regular Gastrointestinal: Yes: Soft, Tenderness (over eschar type scab in subxiphoid region. this is essentially unchanged when i saw her a couple weeks ago. CT shows no collection underneath. tender to palpation though.). No: Distention Renal/: Yes: CVA Tenderness - Left, CVA Tenderness - Right Breast(s): No: Discharge from Nipple, Nipple Inversion Musculoskeletal: No: Joint Stiffness, Joint Swelling Extremities: No: Calf Tenderness, Erythema Integumentary: Yes: Other (partially open/scabbing wound from old incision from lap naomi. tender to palpation) Neurological: Yes: Alert, Oriented Psychiatric: Yes: Alert, Oriented Labs: CBC, BMP 06/05/16 05:35 Imaging - Results Cat Scan: Report Reviewed Problem List - Problems (1) Cholecystitis without cholelithiasis Assessment/Plan: agree with GI eval for possible ERCP unclear why scabbed wound hurts so much. ? consider lidocaine topical ointment does not appear infected. Code(s): K81.9 - CHOLECYSTITIS, UNSPECIFIED
--- NOTE | 2016-06-05 15:38 | PN ---
Progress Note, Physician History of Present Illness: The patient is a 60-year-old black female, with a significant past medical history of severe systolic CHF, HTN, hypercholesterolemia, hypothyroidism, pacemaker/defibrillator, s/p CABG 2003; s/p coronary stents, s/p cholecystectomy , who presents to the emergency department with abdominal pain. The patient reports that the abdominal pain is located in the right abdomen, and radiates to the chest. She reports that the abdominal pain is the most severe in the region where she had a cholecystectomy. The patient denies shortness of breath, headache and dizziness. The patient denies fever, chills, nausea, vomit, diarrhea and constipation. The patient denies dysuria, frequency, urgency and hematuria. - Current Medication List Current Medications: Active Medications Albuterol Sulfate (Ventolin 0.083% Nebulizer Soln -) 1 amp NEB Q8H PRN PRN Reason: SHORT OF BREATH/WHEEZING Last Admin: 06/05/16 10:44 Dose: 1 amp Amlodipine Besylate (Norvasc -) 10 mg PO DAILY [facility] Last Admin: 06/05/16 09:41 Dose: Not Given Atorvastatin Calcium (Lipitor -) 20 mg PO HS [facility] Last Admin: 06/04/16 22:20 Dose: 20 mg Colchicine (Colcrys -) 0.6 mg PO DAILY [facility] Last Admin: 06/05/16 09:41 Dose: Not Given Docusate Sodium (Colace -) 100 mg PO TID [facility] Last Admin: 06/05/16 14:35 Dose: Not Given Furosemide (Lasix Injection -) 40 mg IVPUSH BID@0600,1400 [facility] Last Admin: 06/05/16 14:28 Dose: 40 mg Levothyroxine Sodium (Synthroid -) 50 mcg PO DAILY@0700 [facility] Last Admin: 06/05/16 06:18 Dose: Not Given Lisinopril (Prinivil) 10 mg PO DAILY [facility] Last Admin: 06/05/16 09:42 Dose: Not Given Metoprolol Succinate (Toprol Xl -) 200 mg PO DAILY [facility] Last Admin: 06/05/16 09:42 Dose: Not Given Olanzapine (Zyprexa -) 5 mg PO BID [facility] Last Admin: 06/05/16 09:42 Dose: Not Given Oxycodone/Acetaminophen (Percocet 5/325 -) 2 combo PO Q6H PRN PRN Reason: PAIN LEVEL 6-10 Last Admin: 06/05/16 02:45 Dose: 2 combo Phytonadione (Aqua Mephyton Injection -) 10 mg IM DAILY [facility] Stop: 06/08/16 12:59 Last Admin: 06/05/16 14:36 Dose: Not Given Senna (Senna -) 2 tab PO HS [facility] Last Admin: 06/04/16 22:21 Dose: Not Given Spironolactone (Aldactone -) 25 mg PO DAILY [facility] Last Admin: 06/05/16 09:41 Dose: Not Given - Objective Vital Signs: Vital Signs Temperature 97.2 F L 06/05/16 06:00 Pulse Rate 80 06/05/16 11:26 Respiratory Rate 18 06/05/16 11:26 Blood Pressure 126/68 06/05/16 11:26 O2 Sat by Pulse Oximetry (%) 98 06/05/16 09:00 Eyes: Yes: WNL, Conjunctiva Clear, EOM Intact HENT: Yes: WNL, Atraumatic, Normocephalic Neck: Yes: WNL, Supple, Trachea Midline Cardiovascular: Yes: WNL, Regular Rate and Rhythm Respiratory: Yes: WNL, Regular, CTA Bilaterally Gastrointestinal: Yes: WNL, Normal Bowel Sounds Genitourinary: Yes: WNL Musculoskeletal: Yes: WNL Extremities: Yes: WNL Edema: Yes Integumentary: Yes: WNL Neurological: Yes: WNL, Alert, Oriented ...Motor Strength: WNL Psychiatric: Yes: WNL Labs: CBC, BMP 06/05/16 05:35 INR, PTT INR 1.49 (0.82-1.09) H 06/05/16 05:35 Problem List - Problems (1) Acute combined systolic and diastolic ACC/AHA stage C congestive heart failure Code(s): I50.41 - ACUTE COMBINED SYSTOLIC AND DIASTOLIC (CONGESTIVE) HRT FAIL (2) CHF (congestive heart failure), NYHA class III Code(s): I50.9 - HEART FAILURE, UNSPECIFIED (3) CHF exacerbation Code(s): I50.9 - HEART FAILURE, UNSPECIFIED Qualifiers: (4) Chest pain Code(s): R07.9 - CHEST PAIN, UNSPECIFIED (5) Cholecystitis without cholelithiasis Code(s): K81.9 - CHOLECYSTITIS, UNSPECIFIED (6) Postoperative abdominal pain Code(s): R10.9 - UNSPECIFIED ABDOMINAL PAIN G89.18 - OTHER ACUTE POSTPROCEDURAL PAIN (7) Dyspepsia Code(s): K30 - FUNCTIONAL DYSPEPSIA (8) Hypertension Code(s): I10 - ESSENTIAL (PRIMARY) HYPERTENSION (9) Hypothyroidism Code(s): E03.9 - HYPOTHYROIDISM, UNSPECIFIED (10) Sphincter of Oddi dysfunction Code(s): K83.4 - SPASM OF SPHINCTER OF ODDI (11) Status post THR (total hip replacement) Code(s): Z96.649 - PRESENCE OF UNSPECIFIED ARTIFICIAL HIP JOINT (12) Tobacco use disorder Code(s): Z72.0 - TOBACCO USE (13) Abdominal pain Code(s): R10.9 - UNSPECIFIED ABDOMINAL PAIN Qualifiers: Abdominal location: unspecified location Qualified Code(s): R10.9 - Unspecified abdominal pain (14) Abdominal pain, diffuse Code(s): R10.84 - GENERALIZED ABDOMINAL PAIN (15) Acalculous cholecystitis Code(s): K81.9 - CHOLECYSTITIS, UNSPECIFIED (16) Acute acalculous cholecystitis Code(s): K81.0 - ACUTE CHOLECYSTITIS (17) Arteriosclerotic heart disease (ASHD) Code(s): I25.10 - ATHSCL HEART DISEASE OF [place] CORONARY ARTERY W/O ANG PCTRS (18) Cholecystitis, unspecified Code(s): K81.9 - CHOLECYSTITIS, UNSPECIFIED (19) Coronary artery disease Code(s): I25.10 - ATHSCL HEART DISEASE OF [place] CORONARY ARTERY W/O ANG PCTRS (20) Edema Code(s): R60.9 - EDEMA, UNSPECIFIED Qualifiers: Edema type: generalized Qualified Code(s): R60.1 - Generalized edema (21) Hypoalbuminemia Code(s): E88.09 - OTH DISORDERS OF PLASMA-PROTEIN METABOLISM, NEC (22) Lower extremity edema Code(s): R60.0 - LOCALIZED EDEMA Qualifiers: Laterality: bilateral Qualified Code(s): R60.0 - Localized edema (23) Migraine headache Code(s): G43.909 - MIGRAINE, UNSP, NOT INTRACTABLE, WITHOUT STATUS MIGRAINOSUS (24) Orthopnea Code(s): R06.01 - ORTHOPNEA (25) Peripheral neuropathy Code(s): G62.9 - POLYNEUROPATHY, UNSPECIFIED (26) Pitting edema Code(s): R60.9 - EDEMA, UNSPECIFIED (27) Postoperative pain Code(s): G89.18 - OTHER ACUTE POSTPROCEDURAL PAIN (28) Renal calculus Code(s): N20.0 - CALCULUS OF KIDNEY (29) Renal colic Code(s): N23 - UNSPECIFIED RENAL COLIC (30) Renal colic on right side Code(s): N23 - UNSPECIFIED RENAL COLIC (32) Right ankle sprain Code(s): S93.401A - SPRAIN OF UNSPECIFIED LIGAMENT OF RIGHT ANKLE, INIT ENCNTR (33) Right flank pain Code(s): R10.9 - UNSPECIFIED ABDOMINAL PAIN (34) Right kidney stone Code(s): N20.0 - CALCULUS OF KIDNEY (35) Risk for coronary artery disease greater than 20% in next 10 years Code(s): Z91.89 - [facility] PERSONAL RISK FACTORS, NOT ELSEWHERE CLASSIFIED (36) Shortness of breath Code(s): R06.02 - SHORTNESS OF BREATH (37) Urinary tract infection Code(s): N39.0 - URINARY TRACT INFECTION, SITE NOT SPECIFIED Qualifiers: Urinary tract infection type: site unspecified Hematuria presence: without hematuria Qualified Code(s): N39.0 - Urinary tract infection, site not specified (38) Abdominal discomfort Code(s): R10.9 - UNSPECIFIED ABDOMINAL PAIN (39) Acute on chronic systolic and diastolic heart failure, NYHA class 3 Code(s): I50.43 - ACUTE ON CHRONIC COMBINED SYSTOLIC AND DIASTOLIC HRT FAIL (40) CAD (coronary artery disease) Code(s): I25.10 - ATHSCL HEART DISEASE OF [place] CORONARY ARTERY W/O ANG PCTRS (41) CHF (congestive heart failure) Code(s): I50.9 - HEART FAILURE, UNSPECIFIED Qualifiers: Congestive heart failure type: unspecified congestive heart failure type Congestive heart failure chronicity: unspecified congestive heart failure chronicity Qualified Code(s): I50.9 - Heart failure, unspecified (42) Chronic systolic congestive heart failure Code(s): I50.22 - CHRONIC SYSTOLIC (CONGESTIVE) HEART FAILURE (43) Depression Code(s): F32.9 - MAJOR DEPRESSIVE DISORDER, SINGLE EPISODE, UNSPECIFIED (44) Diabetes Code(s): E11.9 - TYPE 2 DIABETES MELLITUS WITHOUT COMPLICATIONS (45) Hyperlipidemia Code(s): E78.5 - HYPERLIPIDEMIA, UNSPECIFIED (46) ICD (implantable cardioverter-defibrillator) in place Code(s): Z95.810 - PRESENCE OF AUTOMATIC (IMPLANTABLE) CARDIAC DEFIBRILLATOR (47) Substance abuse Code(s): F19.10 - OTHER PSYCHOACTIVE SUBSTANCE ABUSE, UNCOMPLICATED (48) Systolic heart failure Code(s): I50.20 - UNSPECIFIED SYSTOLIC (CONGESTIVE) HEART FAILURE Assessment/Plan - Problems (1) Postoperative abdominal pain Assessment/Plan: f/u with surgeon regarding post-cholecystectomy non-healed abdominal lap site. F/u with gastrocnterologist (elevated bilirubin). Code(s): R10.9 - UNSPECIFIED ABDOMINAL PAIN G89.18 - OTHER ACUTE POSTPROCEDURAL PAIN (2) Dyspepsia Code(s): K30 - FUNCTIONAL DYSPEPSIA (3) Hypertension Assessment/Plan: On amlodipine, spironolactone, metoprolol, lisinopril (may increase dose of the latter), and furosemide. Code(s): I10 - ESSENTIAL (PRIMARY) HYPERTENSION (4) Hypothyroidism Code(s): E03.9 - HYPOTHYROIDISM, UNSPECIFIED (5) Status post THR (total hip replacement) Code(s): Z96.649 - PRESENCE OF UNSPECIFIED ARTIFICIAL HIP JOINT (6) Tobacco use disorder Assessment/Plan: The paramount need to stop smoking was again discussed. Code(s): Z72.0 - TOBACCO USE (7) Coronary artery disease Code(s): I25.10 - ATHSCL HEART DISEASE OF [place] CORONARY ARTERY W/O ANG PCTRS (8) Edema Code(s): R60.9 - EDEMA, UNSPECIFIED Qualifiers: Edema type: generalized Qualified Code(s): R60.1 - Generalized edema (9) Hypoalbuminemia Code(s): E88.09 - OTH DISORDERS OF PLASMA-PROTEIN METABOLISM, NEC (10) Risk for coronary artery disease greater than 20% in next 10 years Code(s): Z91.89 - OTH PERSONAL RISK FACTORS, NOT ELSEWHERE CLASSIFIED (11) Chronic systolic congestive heart failure Assessment/Plan: continue meroprolol, spironolactone, lisinopril, amlodipne, and furosemide. F/u BUN/Cr, electrolytes (replete K); Is and Os, daily weight. Code(s): I50.22 - CHRONIC SYSTOLIC (CONGESTIVE) HEART FAILURE (12) Depression Code(s): F32.9 - MAJOR DEPRESSIVE DISORDER, SINGLE EPISODE, UNSPECIFIED (13) Diabetes Code(s): E11.9 - TYPE 2 DIABETES MELLITUS WITHOUT COMPLICATIONS (14) Hyperlipidemia Code(s): E78.5 - HYPERLIPIDEMIA, UNSPECIFIED (15) ICD (implantable cardioverter-defibrillator) in place Code(s): Z95.810 - PRESENCE OF AUTOMATIC (IMPLANTABLE) CARDIAC DEFIBRILLATOR NSVT check electtrolytes cont telemetry
[2016-06-05] MEDS ORDERED: POTASSIUM CHLORIDE 40 MEQ/30 ML UNIT DOSE CUP ONE (17:17)
[2016-06-05] MEDS: POTASSIUM CHLORIDE TABS 20 MEQ TABLET.ER (FP) PO ONE ×2 (17:44→17:55)
[2016-06-05] MEDS: ATORVASTATIN CA 20 MG TABLET (FP) PO SCH (21:22)
[2016-06-05] MEDS: SENNOSIDES 8.6MG TABLET (FP) PO SCH (21:27)
[2016-06-05] MEDS ORDERED: oxyCODONE HCL 5 MG TABLET PO ONE (22:28)
[2016-06-06] MEDS: FUROSEMIDE 40 MG/4 ML INJECTABLE VIAL IVPUSH SCH ×2 (05:34→14:39)
[2016-06-06] MEDS: DOCUSATE SODIUM 100 MG CAPSULE (FP) PO SCH ×3 (05:35→22:13)
[2016-06-06] MEDS: ALBUTEROL SO4 0.083% IH SOL 2.5 MG/3 ML VIAL.NEB. NEB PRN (06:00)
[2016-06-06 06:06] LABS: CA 19-9 1 U/mL (0-35); SERUM IRON 33 ug/dL (27-139); TOTAL IRON BINDING CAPACITY 449 ug/dL (250-450); UIBC 416 ug/dL (118-369)
[2016-06-06] MEDS: LEVOTHYROXINE NA 50 MCG TABLET (FP) PO SCH (06:07)
--- NOTE | 2016-06-06 08:07 | PN ---
Progress Note (short form) - Note Progress Note: GINOte: CTscan reveals on opn CBD without obvious stricture, mass or stones. Tumor markers are negative. Will cancel ERCP and follow her LFTs. If they reveal a progressive rise then an ERCP will be reconsidered in the future. Will advance diet.
[2016-06-06 08:09] LABS: INR 1.58 (0.82-1.09); PROTHROMBIN TIME (PATIENT) 17.5 SEC (9.98-11.88)
[2016-06-06 08:19] LABS: CALCIUM 9.3 mg/dL (8.5-10.1)
[2016-06-06 08:25] LABS: ALBUMIN 3.5 g/dl (3.4-5.0); BILIRUBIN,DIRECT 1.6 mg/dL (0.0-0.2); BILIRUBIN,TOTAL 2.3 mg/dL (0.2-1.0); TOT PROT 7.3 g/dl (6.4-8.2)
[2016-06-06] MEDS: SPIRONOLACTONE 25 MG TABLET (FP) PO SCH (09:19)
[2016-06-06] MEDS: COLCHICINE 0.6 MG TABLET (FP) PO SCH (09:19)
[2016-06-06] MEDS: METOPROLOL SUCCINATE 100 MG TAB.SR.24H (FP) PO SCH (09:19)
[2016-06-06] MEDS: PHYTONADIONE 10 MG/1 ML AMP IM SCH (09:20)
[2016-06-06] MEDS: LISINOPRIL 10 MG TABLET (FP) PO SCH (09:20)
[2016-06-06] MEDS: amLODIPine BESYLATE 10 MG TABLET (FP) PO SCH (09:20)
[2016-06-06] MEDS: OLANZapine 5 MG TABLET PO SCH ×2 (09:20→22:13)
--- NOTE | 2016-06-06 10:44 | PN ---
Physical Exam: SUBJECTIVE: Patient seen and examined Patient resting in bed comfortably, nad. No acute events overnight, afebrile and hemodynamically stable. Mental status better than during last admission. More approachable and responsive. She reports continued abdominal pain but somewhat decreased, mostly in RUQ. She reports baseline mild SOB, baseline dry cough, and baseline LE edema. She denies chest pain, h/a, dizziness, n/v, diarrhea or LE pain. Her ERCP was cancelled by GI this AM due to mild findings in imaging, opting to trend t bili labs instead. OBJECTIVE: Vital Signs Period Temp Pulse Resp BP Sys/Santoro Pulse Ox Last 24 Hr 97.4 F-98.2 F 65-92 16-18 119-131/66-90 98-100 GENERAL: The patient is awake, alert, and fully oriented, in no acute distress. HEAD: Normal with no signs of trauma. EYES: PERRL, extraocular movements intact, sclera anicteric, conjunctiva clear. ENT: moist mucous membranes. NECK: supple. LUNGS: bibasilar ronchi HEART: Regular rate and rhythm, S1, S2 ABDOMEN: Soft, nondistended, normoactive bowel sounds, tender RUQ, RLQ. No guarding. EXTREMITIES: 1+ pulses, warm, well-perfused, 2+ edema b/l. NEUROLOGICAL: Cranial nerves II through XII grossly intact. Normal speech, gait not observed. PSYCH: depressed mood, flattened affect. SKIN: Warm, dry Laboratory Results - last 24 hr 06/05/16 06/06/16 06/06/16 05:35 05:35 05:35 INR 1.58 H Sodium 139 Potassium 4.2 Chloride 93 L Carbon Dioxide 35 H Anion Gap 11 BUN 22 H Creatinine 1.0 Creat Clearance w eGFR 56.18 Random Glucose 79 Calcium 9.3 Iron 33 TIBC 449 Iron Saturation 7 L Total Bilirubin 2.3 H Direct Bilirubin 1.6 H AST 40 H ALT 26 Alkaline Phosphatase 141 H Total Protein 7.3 Albumin 3.5 Tumor Marker AFP 5.1 CA 19-9 Antigen 1 Hepatitis A Ab Total Positive Hep Bs Antigen Negative Hep Bs Antibody Non reactive Hep B Core Total Ab Negative Hepatitis C Antibody 0.3 Active Medications Generic Name Dose Route Start Last Admin Trade Name Freq PRN Reason Stop Dose Admin Albuterol Sulfate 1 amp 06/02/16 21:56 06/06/16 06:00 Ventolin 0.083% Nebulizer Soln - NEB 1 amp Q8H PRN Administration SHORT OF BREATH/WHEEZING Amlodipine Besylate 10 mg 06/03/16 10:00 06/06/16 09:20 Norvasc - PO 10 mg DAILY RINA Administration Atorvastatin Calcium 20 mg 06/02/16 22:00 06/05/16 21:22 Lipitor - PO 20 mg HS RINA Administration Colchicine 0.6 mg 06/04/16 10:30 06/06/16 09:19 Colcrys - PO Not Given DAILY RINA Docusate Sodium 100 mg 06/02/16 22:00 06/06/16 05:35 Colace - PO Not Given TID RINA Furosemide 40 mg 06/04/16 06:00 06/06/16 05:34 Lasix Injection - IVPUSH 40 mg BID@0600,1400 RINA Administration Levothyroxine Sodium 50 mcg 06/05/16 07:00 06/06/16 06:07 Synthroid - PO Not Given DAILY@0700 RINA Lisinopril 10 mg 06/02/16 22:00 06/06/16 09:20 Prinivil PO 10 mg DAILY RINA Administration Metoprolol Succinate 200 mg 06/02/16 22:00 06/06/16 09:19 Toprol Xl - PO 200 mg DAILY RINA Administration Olanzapine 5 mg 06/03/16 10:00 06/06/16 09:20 Zyprexa - PO Not Given BID RINA Phytonadione 10 mg 06/05/16 13:00 06/06/16 09:20 Aqua Mephyton Injection - IM 06/08/16 12:59 Not Given DAILY [facility] Senna 2 tab 06/02/16 22:00 06/05/16 21:27 Senna - PO Not Given HS RINA Spironolactone 25 mg 06/03/16 10:00 06/06/16 09:19 Aldactone - PO Not Given DAILY [facility] ASSESSMENT/PLAN: This is a 60 yo F with PMH of lap naomi due to acalcalous cholecystitis 05/05, systolic CHF, CAD, OR s/p stents x2, defibrillator/pacemaker, CABG, HTN, HLD, depression, hypothyroidism, kidney stone and peripheral neuropathy, admitted due to abd pain and hyperbilirubinemia. Acute on chronic systolic CHF exacerbation -medication noncompliant, states that she was told not to take heart meds despite multiple conversations explaining dire need to take her meds. -CXR consistent with CHF, slightly worse than on d/c a month ago. -TTE increased TR and MR compared to 1 yr ago. severely reduced EF, seerely dilated LV, globally hypokinetik. -decrease in weight by 2 pounds. -strict I&O -daily weights -tele monitoring -continue aldactone 25 d, lasix 40 IV bid, norvasc, lisinopril -continue lipitor -nebs PRN -NC O2 PRN -pre and post exercise O2 sats before d/c-eval for home O2. -cardiology consult Abdominal pain with hyperbilirubinemia and transaminitis -s/p lap naomi due to acalcalous cholecystitis 05/05 -t bili 3.4 on admission, trending down 2.3 -CT abd/pelvis mild dilitation of CBD, no stone or ampullary mass -GI consult appreciated: ERCP with possible stenting postponed due to unimpressive findings on CT. Trend T bili and LFTs -Surgery consult appreciated Surgical wound pain -no erythema, discharge, healing well with pink granulation tissue, no fever, no leukocytosis. -seen by surgery -pain likely neuropathic Hypothyroidism -TSH low 0.33 -medication compliant -levothyroxine decreased to 50mcg, -repeat TFTs outpatient in 6 w DVT risk -LE duplex 06/04 shows possible deep calf vein thrombosis vs superficial phlebitis -repeat duplex tomorrow recommended Constipation -colace, senna Depression -Zyprexa -improvement in symptoms. FEN luzmaria lymadhavi stable DVT GI PPX: Hailey, scd's, diet Na controlled diet Dispo: admit to tele. Problem List - Problems (1) Acute combined systolic and diastolic ACC/AHA stage C congestive heart failure Code(s): I50.41 - ACUTE COMBINED SYSTOLIC AND DIASTOLIC (CONGESTIVE) HRT FAIL (2) CHF (congestive heart failure), NYHA class III Code(s): I50.9 - HEART FAILURE, UNSPECIFIED (3) CHF exacerbation Code(s): I50.9 - HEART FAILURE, UNSPECIFIED Qualifiers: (4) Postoperative abdominal pain Code(s): R10.9 - UNSPECIFIED ABDOMINAL PAIN G89.18 - OTHER ACUTE POSTPROCEDURAL PAIN (5) Hypertension Code(s): I10 - ESSENTIAL (PRIMARY) HYPERTENSION (6) Hypothyroidism Code(s): E03.9 - HYPOTHYROIDISM, UNSPECIFIED (7) Sphincter of Oddi dysfunction Code(s): K83.4 - SPASM OF SPHINCTER OF ODDI (8) Status post THR (total hip replacement) Code(s): Z96.649 - PRESENCE OF UNSPECIFIED ARTIFICIAL HIP JOINT (9) Tobacco use disorder Code(s): Z72.0 - TOBACCO USE (10) Abdominal pain Code(s): R10.9 - UNSPECIFIED ABDOMINAL PAIN Qualifiers: Abdominal location: unspecified location Qualified Code(s): R10.9 - Unspecified abdominal pain (11) Abdominal pain, diffuse Code(s): R10.84 - GENERALIZED ABDOMINAL PAIN (12) Arteriosclerotic heart disease (ASHD) Code(s): I25.10 - ATHSCL HEART DISEASE OF [place] CORONARY ARTERY W/O ANG PCTRS (13) Coronary artery disease Code(s): I25.10 - ATHSCL HEART DISEASE OF [place] CORONARY ARTERY W/O ANG PCTRS (14) Edema Code(s): R60.9 - EDEMA, UNSPECIFIED Qualifiers: Edema type: generalized Qualified Code(s): R60.1 - Generalized edema (15) Hypoalbuminemia Code(s): E88.09 - OTH DISORDERS OF PLASMA-PROTEIN METABOLISM, NEC (16) Lower extremity edema Code(s): R60.0 - LOCALIZED EDEMA Qualifiers: Laterality: bilateral Qualified Code(s): R60.0 - Localized edema (17) Orthopnea Code(s): R06.01 - ORTHOPNEA (18) Peripheral neuropathy Code(s): G62.9 - POLYNEUROPATHY, UNSPECIFIED (19) Pitting edema Code(s): R60.9 - EDEMA, UNSPECIFIED (20) Postoperative pain Code(s): G89.18 - OTHER ACUTE POSTPROCEDURAL PAIN (21) Renal calculus Code(s): N20.0 - CALCULUS OF KIDNEY (23) Shortness of breath Code(s): R06.02 - SHORTNESS OF BREATH (24) Acute on chronic systolic and diastolic heart failure, NYHA class 3 Code(s): I50.43 - ACUTE ON CHRONIC COMBINED SYSTOLIC AND DIASTOLIC HRT FAIL (25) CAD (coronary artery disease) Code(s): I25.10 - ATHSCL HEART DISEASE OF [place] CORONARY ARTERY W/O ANG PCTRS (26) CHF (congestive heart failure) Code(s): I50.9 - HEART FAILURE, UNSPECIFIED Qualifiers: Congestive heart failure type: unspecified congestive heart failure type Congestive heart failure chronicity: unspecified congestive heart failure chronicity Qualified Code(s): I50.9 - Heart failure, unspecified (27) Chronic systolic congestive heart failure Code(s): I50.22 - CHRONIC SYSTOLIC (CONGESTIVE) HEART FAILURE (28) Depression Code(s): F32.9 - MAJOR DEPRESSIVE DISORDER, SINGLE EPISODE, UNSPECIFIED (29) Diabetes Code(s): E11.9 - TYPE 2 DIABETES MELLITUS WITHOUT COMPLICATIONS (30) Hyperlipidemia Code(s): E78.5 - HYPERLIPIDEMIA, UNSPECIFIED (31) ICD (implantable cardioverter-defibrillator) in place Code(s): Z95.810 - PRESENCE OF AUTOMATIC (IMPLANTABLE) CARDIAC DEFIBRILLATOR (32) Systolic heart failure Code(s): I50.20 - UNSPECIFIED SYSTOLIC (CONGESTIVE) HEART FAILURE (33) Transaminitis Code(s): R74.0 - NONSPEC ELEV OF LEVELS OF TRANSAMNS & LACTIC ACID DEHYDRGNSE (34) Hyperbilirubinemia Code(s): E80.6 - OTHER DISORDERS OF BILIRUBIN METABOLISM Visit type - Emergency Visit Emergency Visit: Yes ED Registration Date: 06/03/16 Care time: The patient presented to the Emergency Department on the above date and was hospitalized for further evaluation of their emergent condition. - New Patient This patient is new to me today: No - Critical Care Critical Care patient: No - Discharge Referral Referred to [facility] Med P.C.: No
--- NOTE | 2016-06-06 11:41 | PN ---
Progress Note, Physician Chief Complaint: Pt A&Ox3; no chest pain; still with itchy, painful LEs. History of Present Illness: The patient is a 60-year-old black female, with a significant past medical history of severe systolic CHF, HTN, hypercholesterolemia, hypothyroidism, pacemaker/defibrillator, s/p CABG 2003; s/p coronary stents, s/p cholecystectomy , who presents to the emergency department with abdominal pain. The patient reports that the abdominal pain is located in the right abdomen, and radiates to the chest. She reports that the abdominal pain is the most severe in the region where she had a cholecystectomy. The patient denies shortness of breath, headache and dizziness. The patient denies fever, chills, nausea, vomit, diarrhea and constipation. The patient denies dysuria, frequency, urgency and hematuria. Allergies: aspirin Past surgical history: cholecystectomy 04/2016, CABG 2003, bypass, stents x2 Social history: Current everyday smoker - Current Medication List Current Medications: Active Medications Albuterol Sulfate (Ventolin 0.083% Nebulizer Soln -) 1 amp NEB Q8H PRN PRN Reason: SHORT OF BREATH/WHEEZING Last Admin: 06/06/16 06:00 Dose: 1 amp Amlodipine Besylate (Norvasc -) 10 mg PO DAILY [facility] Last Admin: 06/06/16 09:20 Dose: 10 mg Atorvastatin Calcium (Lipitor -) 20 mg PO HS [facility] Last Admin: 06/05/16 21:22 Dose: 20 mg Colchicine (Colcrys -) 0.6 mg PO DAILY [facility] Last Admin: 06/06/16 09:19 Dose: Not Given Docusate Sodium (Colace -) 100 mg PO TID [facility] Last Admin: 06/06/16 05:35 Dose: Not Given Furosemide (Lasix Injection -) 40 mg IVPUSH BID@0600,1400 [facility] Last Admin: 06/06/16 05:34 Dose: 40 mg Levothyroxine Sodium (Synthroid -) 50 mcg PO DAILY@0700 [facility] Last Admin: 06/06/16 06:07 Dose: Not Given Lisinopril (Prinivil) 10 mg PO DAILY [facility] Last Admin: 06/06/16 09:20 Dose: 10 mg Metoprolol Succinate (Toprol Xl -) 200 mg PO DAILY [facility] Last Admin: 06/06/16 09:19 Dose: 200 mg Olanzapine (Zyprexa -) 5 mg PO BID [facility] Last Admin: 06/06/16 09:20 Dose: Not Given Phytonadione (Aqua Mephyton Injection -) 10 mg IM DAILY [facility] Stop: 06/08/16 12:59 Last Admin: 06/06/16 09:20 Dose: Not Given Senna (Senna -) 2 tab PO HS [facility] Last Admin: 06/05/16 21:27 Dose: Not Given Spironolactone (Aldactone -) 25 mg PO DAILY [facility] Last Admin: 06/06/16 09:19 Dose: Not Given - Objective Vital Signs: Vital Signs Temperature 98.1 F 06/06/16 09:00 Pulse Rate 65 06/06/16 09:00 Respiratory Rate 18 06/06/16 09:00 Blood Pressure 123/66 06/06/16 09:00 O2 Sat by Pulse Oximetry (%) 100 06/06/16 06:00 Constitutional: Yes: Anxious Eyes: Yes: WNL HENT: Yes: WNL Neck: Yes: WNL Cardiovascular: Yes: Pulse Irregular, S2 (split) Respiratory: Yes: Regular Gastrointestinal: Yes: Soft ...Rectal Exam: Yes: Deferred Genitourinary: No: Anuria Breast(s): Yes: WNL Musculoskeletal: Yes: Muscle Weakness Extremities: Yes: Cool Edema: Yes Edema: LLE: 2+, RLE: 2+ Peripheral Pulses WNL: No Peripheral Pulses: Left Doralis Pedis: 1+, Right Dorsalis Pedis: 1+ Integumentary: Yes: Venous Stasis Changes Neurological: Yes: Alert, Oriented, Weakness Psychiatric: Yes: Oriented, Other (anxiety/depression) Labs: CBC, BMP 06/06/16 05:35 INR, PTT INR 1.58 (0.82-1.09) H 06/06/16 05:35 Abnormal Lab Results 06/05/16 06/06/16 06/06/16 05:35 05:35 05:35 INR 1.58 H Chloride 93 L Carbon Dioxide 35 H BUN 22 H Iron Saturation 7 L Total Bilirubin 2.3 H Direct Bilirubin 1.6 H AST 40 H Alkaline Phosphatase 141 H - ....Imaging Chest X-ray: Image Reviewed (no acute pathology) Problem List - Problems (1) Postoperative abdominal pain Assessment/Plan: Dr. Stevens's f/u noted and appreciated. No gross CBD pathology; ERCP cancelled. Code(s): R10.9 - UNSPECIFIED ABDOMINAL PAIN G89.18 - OTHER ACUTE POSTPROCEDURAL PAIN (2) Dyspepsia Code(s): K30 - FUNCTIONAL DYSPEPSIA (3) Hypertension Assessment/Plan: On spironolactone, metoprolol, lisinopril (may increase dose of the latter), and furosemide. Amlodipine discontinued (episode of hypotension today, after pt complained of abdominal discomfort). F/u abdominal w/u with GI. Code(s): I10 - ESSENTIAL (PRIMARY) HYPERTENSION (4) Hypothyroidism Assessment/Plan: On synthroid; f/u free T3 and free T4 (mildly decreased TSH). Code(s): E03.9 - HYPOTHYROIDISM, UNSPECIFIED (5) Status post THR (total hip replacement) Code(s): Z96.649 - PRESENCE OF UNSPECIFIED ARTIFICIAL HIP JOINT (6) Tobacco use disorder Assessment/Plan: The paramount need to stop smoking was again discussed. Code(s): Z72.0 - TOBACCO USE (7) Coronary artery disease Code(s): I25.10 - ATHSCL HEART DISEASE OF [place] CORONARY ARTERY W/O ANG PCTRS (8) Edema Code(s): R60.9 - EDEMA, UNSPECIFIED Qualifiers: Edema type: generalized Qualified Code(s): R60.1 - Generalized edema (9) Hypoalbuminemia Code(s): E88.09 - OT DISORDERS OF PLASMA-PROTEIN METABOLISM, NEC (10) Risk for coronary artery disease greater than 20% in next 10 years Code(s): Z91.89 - OT PERSONAL RISK FACTORS, NOT ELSEWHERE CLASSIFIED (11) Chronic systolic congestive heart failure Assessment/Plan: continue metoprolol, spironolactone, lisinopril,and furosemide. Amlodipine d/elle (episode of hypotension. F/u BUN/Cr, electrolytes (replete K); Is and Os, daily weight. Code(s): I50.22 - CHRONIC SYSTOLIC (CONGESTIVE) HEART FAILURE (12) Depression Code(s): F32.9 - MAJOR DEPRESSIVE DISORDER, SINGLE EPISODE, UNSPECIFIED (13) Diabetes Code(s): E11.9 - TYPE 2 DIABETES MELLITUS WITHOUT COMPLICATIONS (14) Hyperlipidemia Code(s): E78.5 - HYPERLIPIDEMIA, UNSPECIFIED (15) ICD (implantable cardioverter-defibrillator) in place Code(s): Z95.810 - PRESENCE OF AUTOMATIC (IMPLANTABLE) CARDIAC DEFIBRILLATOR
--- NOTE | 2016-06-06 15:01 | PN ---
Teaching Attending Note Name of Resident: Gia Daley ATTENDING PHYSICIAN STATEMENT I saw and evaluated the patient. I reviewed the resident's note and discussed the case with the resident. I agree with the resident's findings and plan as documented. SUBJECTIVE: seen and evaluated at the bedside OBJECTIVE: resting comfortably in no distress ASSESSMENT AND PLAN: 60yo F wtih CHF, [place] with stents x2, defibrillator/pacemaker and CABG, HTN, HLD, hypercholesterolemia, depression, CAD, hypothyroidism, kidney stone and peripheral neuropathy admitted for chronic abdominal pain Abdominal pain- appreciate GI evaluation and recommendations. possible ampullary stricture or tumor. CT scan done this AM. awaiting results. plan was for ERCP if stenting required but now on hold as per GI attending -CT scan shows dilation of CBD but no masses/stones -cont to trend LFT CHF -pt is well known to be non-compliant with any meds at home -currently being diuresed by private frontend engineer -cont betablocker, statin, ASA
[2016-06-06] MEDS ORDERED: oxyCODONE HCL 5 MG TABLET PO ONE (15:31)
--- NOTE | 2016-06-06 19:02 | HOSP ---
Physical Examination Vital Signs: Vital Signs Temperature 98 F 06/06/16 17:38 Pulse Rate 52 L 06/06/16 17:38 Respiratory Rate 18 06/06/16 17:38 Blood Pressure 81/48 06/06/16 17:38 O2 Sat by Pulse Oximetry (%) 100 06/06/16 06:00 Labs: CBC, BMP 06/06/16 05:35 Hospitalist Encounter Assessment: pt's SBP was in the 70's and that RN had already spoken with private sales and leasing consultant and thought is that pt received too much diaretics. His instructions to RN was to recheck BP in 1 hour since pt was asymptomatic and in no distress. 1 hour later SBP increased to 80's at which point medicine resident was made aware of this and instructions given by private sales and leasing consultant when pt was initially found to have low BP. As pt is asymptomatic and ambulating well will hold all BP meds at this time, stop lasix diuresis, and follow closely. If BP drops further or if pt becomes symptomatic will consider 250cc boluls of normal saline
[2016-06-06] MEDS: ATORVASTATIN CA 20 MG TABLET (FP) PO SCH (22:12)
[2016-06-06] MEDS: SENNOSIDES 8.6MG TABLET (FP) PO SCH (22:13)
[2016-06-06] MEDS: ENOXAPARIN NA (PORCINE) 40 MG/0.4 ML DISP.SYRIN SQ SCH (22:13)
[2016-06-07 00:06] LABS: HEP B SURFACE AB Non Reactive (.)
[2016-06-07] MEDS ORDERED: oxyCODONE HCL 5 MG TABLET PO ONE (00:50)
[2016-06-07] MEDS: DOCUSATE SODIUM 100 MG CAPSULE (FP) PO SCH ×3 (06:21→21:04)
[2016-06-07] MEDS: LEVOTHYROXINE NA 50 MCG TABLET (FP) PO SCH (06:33)
[2016-06-07 08:40] LABS: ALBUMIN 3.4 g/dl (3.4-5.0); CALCIUM 9.2 mg/dL (8.5-10.1); MAGNESIUM 2.1 mg/dL (1.8-2.4)
[2016-06-07 08:44] LABS: BILIRUBIN,DIRECT 1.7 mg/dL (0.0-0.2); BILIRUBIN,TOTAL 2.3 mg/dL (0.2-1.0); CREATININE 1.4 mg/dL (0.55-1.02); PHOSPHOROUS 4.4 mg/dL (2.5-4.9); TOT PROT 6.8 g/dl (6.4-8.2)
[2016-06-07 09:40] LABS: SICKLE CELL SCREEN NEGATIVE (NEGATIVE)
[2016-06-07] MEDS: PHYTONADIONE 10 MG/1 ML AMP IM SCH (10:06)
[2016-06-07] MEDS: ENOXAPARIN NA (PORCINE) 40 MG/0.4 ML DISP.SYRIN SQ SCH ×2 (10:07→21:05)
[2016-06-07] MEDS: OLANZapine 5 MG TABLET PO SCH ×2 (10:07→21:05)
--- NOTE | 2016-06-07 10:47 | PN ---
<IbarraBayron matias - Last Filed: 06/07/16 11:26> Physical Exam: ATTENDING PHYSICIAN STATEMENT I saw and evaluated the patient. I reviewed the resident's note and discussed the case with the resident. I agree with the resident's findings and plan as documented. SUBJECTIVE: seen and evaluated at the bedside OBJECTIVE: resting comfortably in no distress ASSESSMENT AND PLAN: 60yo F wtih CHF, ID with stents x2, defibrillator/pacemaker and CABG, HTN, HLD, hypercholesterolemia, depression, CAD, hypothyroidism, kidney stone and peripheral neuropathy admitted for chronic abdominal pain Abdominal pain- appreciate GI evaluation and recommendations. possible ampullary stricture or tumor; -CT scan shows CBD dilation with no masses -CT scan shows dilation of CBD but no masses/stones -T bili still elevated at 2.3 CHF -pt is well known to be non-compliant with any meds at home -was being diuresed but was hypotensive yesterday -cont to hold all antihypertensives at this time <Gia Daley - Last Filed: 06/07/16 11:51> Physical Exam: SUBJECTIVE: Patient seen and examined Patient resting in bed comfortably, nad. No acute events overnight, afebrile and hemodynamically stable. BP meds have been held, BP trended up on its own without intervention, now 115 systolic. Mental status better than during last admission. More approachable and responsive. She reports continued abdominal pain but somewhat decreased, mostly in RUQ. She reports baseline mild SOB, baseline dry cough, and baseline LE edema. She denies chest pain, h/a, dizziness , n/v, diarrhea or LE pain. OBJECTIVE: Vital Signs Period Temp Pulse Resp BP Sys/Santoro Pulse Ox Last 24 Hr 97.3 F-98.2 F 52-66 18-18 78-115/48-65 94-97 GENERAL: The patient is awake, alert, and fully oriented, in no acute distress. HEAD: Normal with no signs of trauma. EYES: PERRL, extraocular movements intact, sclera anicteric, conjunctiva clear. ENT: moist mucous membranes. NECK: supple. LUNGS: bibasilar ronchi HEART: Regular rate and rhythm, S1, S2 ABDOMEN: Soft, nondistended, normoactive bowel sounds, tender RUQ, RLQ. No guarding. EXTREMITIES: 1+ pulses, warm, well-perfused, 2+ edema b/l. NEUROLOGICAL: Cranial nerves II through XII grossly intact. Normal speech, gait not observed. PSYCH: depressed mood, flattened affect. SKIN: Warm, dry Laboratory Results - last 24 hr 06/05/16 06/06/16 06/06/16 05:35 06:00 06:00 Retic Count Sickle Cell Screen Sodium Potassium Chloride Carbon Dioxide Anion Gap BUN Creatinine Creat Clearance w eGFR Random Glucose Calcium Phosphorus Magnesium Total Bilirubin Direct Bilirubin AST ALT Alkaline Phosphatase LD Total Total Protein Albumin Free T4 2.11 H D Free T3 Cancelled AMILCAR Screen Positive H AMILCAR Homogeneous Pattern 1:1280 H AMILCAR Nucleolar Pattern TNP AMILCAR Speckled Pattern 1:1280 H AMILCAR Centromere Pattern TNP Tiss Transglutamin IgG < 2 Tiss Transglutamin IgA < 2 Hepatitis A IgM Ab Negative Hepatitis A Ab Total Positive H Hep Bs Antigen Negative Hep Bs Antibody Non reactive Hep B Core Total Ab Negative 06/06/16 06/07/16 06/07/16 20:00 05:35 05:35 Retic Count 1.96 H Sickle Cell Screen Negative Sodium 130 L Potassium 3.8 Chloride 93 L Carbon Dioxide 32 Anion Gap 5 L BUN 30 H D Creatinine 1.4 H D Creat Clearance w eGFR 38.10 Random Glucose 66 L Calcium 9.2 Phosphorus 4.4 D Magnesium 2.1 Total Bilirubin 2.3 H Direct Bilirubin 1.7 H AST 45 H ALT 26 Alkaline Phosphatase 139 H LD Total 449 H Total Protein 6.8 Albumin 3.4 Free T4 1.72 H D Free T3 AMILCAR Screen AMILCAR Homogeneous Pattern AMILCAR Nucleolar Pattern AMILCAR Speckled Pattern AMILCAR Centromere Pattern Tiss Transglutamin IgG Tiss Transglutamin IgA Hepatitis A IgM Ab Hepatitis A Ab Total Hep Bs Antigen Hep Bs Antibody Hep B Core Total Ab Active Medications Generic Name Dose Route Start Last Admin Trade Name Freq PRN Reason Stop Dose Admin Albuterol Sulfate 1 amp 06/02/16 21:56 06/06/16 06:00 Ventolin 0.083% Nebulizer Soln - NEB 1 amp Q8H PRN Administration SHORT OF BREATH/WHEEZING Atorvastatin Calcium 20 mg 06/02/16 22:00 06/06/16 22:12 Lipitor - PO 20 mg HS RINA Administration Docusate Sodium 100 mg 06/02/16 22:00 06/07/16 06:21 Colace - PO Not Given TID RINA Enoxaparin Sodium 40 mg 06/06/16 22:00 06/07/16 10:07 Lovenox - SQ Not Given BID RINA Levothyroxine Sodium 50 mcg 06/05/16 07:00 06/07/16 06:33 Synthroid - PO 50 mcg DAILY@0700 RINA Administration Lisinopril 10 mg 06/02/16 22:00 06/06/16 09:20 Prinivil PO 10 mg DAILY RINA Administration Metoprolol Succinate 200 mg 06/02/16 22:00 06/06/16 09:19 Toprol Xl - PO 200 mg DAILY RINA Administration Olanzapine 5 mg 06/03/16 10:00 06/07/16 10:07 Zyprexa - PO Not Given BID RINA Phytonadione 10 mg 06/05/16 13:00 06/07/16 10:06 Aqua Mephyton Injection - IM 06/08/16 12:59 Not Given DAILY RINA Senna 2 tab 06/02/16 22:00 06/06/16 22:13 Senna - PO Not Given HS RINA Spironolactone 25 mg 06/03/16 10:00 06/06/16 09:19 Aldactone - PO Not Given DAILY RINA ASSESSMENT/PLAN: This is a 60 yo F with PMH of lap naomi due to acalcalous cholecystitis 05/05, systolic CHF, CAD, ID s/p stents x2, defibrillator/pacemaker, CABG, HTN, HLD, depression, hypothyroidism, kidney stone and peripheral neuropathy, admitted due to abd pain and hyperbilirubinemia. Acute on chronic systolic CHF exacerbation -medication noncompliant, states that she was told not to take heart meds despite multiple conversations explaining dire need to take her meds. -CXR consistent with CHF, slightly worse than on d/c a month ago. -TTE increased TR and MR compared to 1 yr ago. severely reduced EF, seerely dilated LV, globally hypokinetik. -decrease in weight by 2 pounds. -strict I&O -daily weights -tele monitoring -hold aldactone 25 d, lasix 40 IV bid, norvasc, lisinopril -continue lipitor -nebs PRN -NC O2 PRN -hypotensive yesterday systolic 70's, asymptomatic, likley overdiuresed, BP improved w/o intervention, BP meds held until midnight. -pre and post exercise O2 sats before d/c-eval for home O2. -cardiology consult Abdominal pain with hyperbilirubinemia and transaminitis -s/p lap naomi due to acalcalous cholecystitis 05/05 -t bili 3.4 on admission, now platoed at 2.3 -d bili trending up 1.7 today from 1.5 2 days ago -AST trending up 45 from 40 -CT abd/pelvis mild dilitation of CBD, no stone or ampullary mass -GI consult appreciated: ERCP with possible stenting postponed due to unimpressive findings on CT. Trend T bili and LFTs; touch base with GI for furter recs/plan in light of labs -Surgery consult appreciated Surgical wound pain -no erythema, discharge, healing well with pink granulation tissue, no fever, no leukocytosis. -seen by surgery -pain likely neuropathic Hypothyroidism -TSH low 0.33 -medication compliant -levothyroxine decreased to 50mcg, -repeat TFTs outpatient in 6 w DVT risk -LE duplex 06/04 shows possible deep calf vein thrombosis vs superficial phlebitis -repeat duplex tomorrow recommended Constipation -colace, senna Depression -Zyprexa -improvement in symptoms. FEN diurese lytes stable DVT GI PPX: Hailey, scd's, diet Na controlled diet Dispo: monitor in tele. Problem List - Problems (1) Acute combined systolic and diastolic ACC/AHA stage C congestive heart failure Code(s): I50.41 - ACUTE COMBINED SYSTOLIC AND DIASTOLIC (CONGESTIVE) HRT FAIL (2) CHF (congestive heart failure), NYHA class III Code(s): I50.9 - HEART FAILURE, UNSPECIFIED (3) CHF exacerbation Code(s): I50.9 - HEART FAILURE, UNSPECIFIED Qualifiers: (4) Postoperative abdominal pain Code(s): R10.9 - UNSPECIFIED ABDOMINAL PAIN G89.18 - OTHER ACUTE POSTPROCEDURAL PAIN (5) Hypertension Code(s): I10 - ESSENTIAL (PRIMARY) HYPERTENSION (6) Hypothyroidism Code(s): E03.9 - HYPOTHYROIDISM, UNSPECIFIED (7) Sphincter of Oddi dysfunction Code(s): K83.4 - SPASM OF SPHINCTER OF ODDI (8) Status post THR (total hip replacement) Code(s): Z96.649 - PRESENCE OF UNSPECIFIED ARTIFICIAL HIP JOINT (9) Tobacco use disorder Code(s): Z72.0 - TOBACCO USE (10) Abdominal pain Code(s): R10.9 - UNSPECIFIED ABDOMINAL PAIN Qualifiers: Abdominal location: unspecified location Qualified Code(s): R10.9 - Unspecified abdominal pain (11) Abdominal pain, diffuse Code(s): R10.84 - GENERALIZED ABDOMINAL PAIN (12) Arteriosclerotic heart disease (ASHD) Code(s): I25.10 - ATHSCL HEART DISEASE OF [place] CORONARY ARTERY W/O ANG PCTRS (13) Coronary artery disease Code(s): I25.10 - ATHSCL HEART DISEASE OF [place] CORONARY ARTERY W/O ANG PCTRS (14) Edema Code(s): R60.9 - EDEMA, UNSPECIFIED Qualifiers: Edema type: generalized Qualified Code(s): R60.1 - Generalized edema (15) Hypoalbuminemia Code(s): E88.09 - OTH DISORDERS OF PLASMA-PROTEIN METABOLISM, NEC (16) Lower extremity edema Code(s): R60.0 - LOCALIZED EDEMA Qualifiers: Laterality: bilateral Qualified Code(s): R60.0 - Localized edema (17) Orthopnea Code(s): R06.01 - ORTHOPNEA (18) Peripheral neuropathy Code(s): G62.9 - POLYNEUROPATHY, UNSPECIFIED (19) Pitting edema Code(s): R60.9 - EDEMA, UNSPECIFIED (20) Postoperative pain Code(s): G89.18 - OTHER ACUTE POSTPROCEDURAL PAIN (21) Renal calculus Code(s): N20.0 - CALCULUS OF KIDNEY (23) Shortness of breath Code(s): R06.02 - SHORTNESS OF BREATH (24) Acute on chronic systolic and diastolic heart failure, NYHA class 3 Code(s): I50.43 - ACUTE ON CHRONIC COMBINED SYSTOLIC AND DIASTOLIC HRT FAIL (25) CAD (coronary artery disease) Code(s): I25.10 - ATHSCL HEART DISEASE OF [place] CORONARY ARTERY W/O ANG PCTRS (26) CHF (congestive heart failure) Code(s): I50.9 - HEART FAILURE, UNSPECIFIED Qualifiers: Congestive heart failure type: unspecified congestive heart failure type Congestive heart failure chronicity: unspecified congestive heart failure chronicity Qualified Code(s): I50.9 - Heart failure, unspecified (27) Chronic systolic congestive heart failure Code(s): I50.22 - CHRONIC SYSTOLIC (CONGESTIVE) HEART FAILURE (28) Depression Code(s): F32.9 - MAJOR DEPRESSIVE DISORDER, SINGLE EPISODE, UNSPECIFIED (29) Diabetes Code(s): E11.9 - TYPE 2 DIABETES MELLITUS WITHOUT COMPLICATIONS (30) Hyperlipidemia Code(s): E78.5 - HYPERLIPIDEMIA, UNSPECIFIED (31) ICD (implantable cardioverter-defibrillator) in place Code(s): Z95.810 - PRESENCE OF AUTOMATIC (IMPLANTABLE) CARDIAC DEFIBRILLATOR (32) Systolic heart failure Code(s): I50.20 - UNSPECIFIED SYSTOLIC (CONGESTIVE) HEART FAILURE (33) Transaminitis Code(s): R74.0 - NONSPEC ELEV OF LEVELS OF TRANSAMNS & LACTIC ACID DEHYDRGNSE (34) Hyperbilirubinemia Code(s): E80.6 - OTHER DISORDERS OF BILIRUBIN METABOLISM Visit type - Emergency Visit Emergency Visit: Yes ED Registration Date: 06/03/16 Care time: The patient presented to the Emergency Department on the above date and was hospitalized for further evaluation of their emergent condition. - New Patient This patient is new to me today: No - Critical Care Critical Care patient: No
--- NOTE | 2016-06-07 11:13 | PN ---
Progress Note, Physician History of Present Illness: The patient is a 60-year-old black female, with a significant past medical history of severe systolic CHF, HTN, hypercholesterolemia, hypothyroidism, pacemaker/defibrillator, s/p CABG 2003; s/p coronary stents, s/p cholecystectomy , who presents to the emergency department with abdominal pain. The patient reports that the abdominal pain is located in the right abdomen, and radiates to the chest. She reports that the abdominal pain is the most severe in the region where she had a cholecystectomy. The patient denies shortness of breath, headache and dizziness. The patient denies fever, chills, nausea, vomit, diarrhea and constipation. The patient denies dysuria, frequency, urgency and hematuria. - Current Medication List Current Medications: Active Medications Albuterol Sulfate (Ventolin 0.083% Nebulizer Soln -) 1 amp NEB Q8H PRN PRN Reason: SHORT OF BREATH/WHEEZING Last Admin: 06/06/16 06:00 Dose: 1 amp Atorvastatin Calcium (Lipitor -) 20 mg PO [facility] Last Admin: 06/06/16 22:12 Dose: 20 mg Docusate Sodium (Colace -) 100 mg PO TID [facility] Last Admin: 06/07/16 06:21 Dose: Not Given Enoxaparin Sodium (Lovenox -) 40 mg SQ BID [facility] Last Admin: 06/07/16 10:07 Dose: Not Given Levothyroxine Sodium (Synthroid -) 50 mcg PO DAILY@0700 [facility] Last Admin: 06/07/16 06:33 Dose: 50 mcg Lisinopril (Prinivil) 10 mg PO DAILY [facility] Last Admin: 06/06/16 09:20 Dose: 10 mg Metoprolol Succinate (Toprol Xl -) 200 mg PO DAILY [facility] Last Admin: 06/06/16 09:19 Dose: 200 mg Olanzapine (Zyprexa -) 5 mg PO BID [facility] Last Admin: 06/07/16 10:07 Dose: Not Given Phytonadione (Aqua Mephyton Injection -) 10 mg IM DAILY [facility] Stop: 06/08/16 12:59 Last Admin: 06/07/16 10:06 Dose: Not Given Senna (Senna -) 2 tab PO [facility] Last Admin: 06/06/16 22:13 Dose: Not Given Spironolactone (Aldactone -) 25 mg PO DAILY [facility] Last Admin: 06/06/16 09:19 Dose: Not Given - Objective Vital Signs: Vital Signs Temperature 97.3 F L 06/07/16 06:00 Pulse Rate 60 06/07/16 10:00 Respiratory Rate 18 06/07/16 10:00 Blood Pressure 100/64 06/07/16 10:00 O2 Sat by Pulse Oximetry (%) 94 L 06/07/16 10:00 Eyes: Yes: WNL, Conjunctiva Clear, EOM Intact HENT: Yes: WNL, Atraumatic, Normocephalic Neck: Yes: WNL, Supple, Trachea Midline Cardiovascular: Yes: WNL, Regular Rate and Rhythm Respiratory: Yes: WNL, Regular, CTA Bilaterally Gastrointestinal: Yes: WNL, Normal Bowel Sounds Genitourinary: Yes: WNL Musculoskeletal: Yes: WNL Extremities: Yes: WNL Edema: No Integumentary: Yes: WNL Neurological: Yes: WNL, Alert, Oriented ...Motor Strength: WNL Psychiatric: Yes: WNL Labs: CBC, BMP 06/07/16 05:35 INR, PTT INR 1.58 (0.82-1.09) H 06/06/16 05:35 Problem List - Problems (1) Acute combined systolic and diastolic ACC/AHA stage C congestive heart failure Code(s): I50.41 - ACUTE COMBINED SYSTOLIC AND DIASTOLIC (CONGESTIVE) HRT FAIL (2) CHF (congestive heart failure), NYHA class III Code(s): I50.9 - HEART FAILURE, UNSPECIFIED (3) CHF exacerbation Code(s): I50.9 - HEART FAILURE, UNSPECIFIED Qualifiers: (4) Chest pain Code(s): R07.9 - CHEST PAIN, UNSPECIFIED (5) Cholecystitis without cholelithiasis Code(s): K81.9 - CHOLECYSTITIS, UNSPECIFIED (6) Postoperative abdominal pain Code(s): R10.9 - UNSPECIFIED ABDOMINAL PAIN G89.18 - OTHER ACUTE POSTPROCEDURAL PAIN (7) Dyspepsia Code(s): K30 - FUNCTIONAL DYSPEPSIA (8) Hypertension Code(s): I10 - ESSENTIAL (PRIMARY) HYPERTENSION (9) Hypothyroidism Code(s): E03.9 - HYPOTHYROIDISM, UNSPECIFIED (10) Sphincter of Oddi dysfunction Code(s): K83.4 - SPASM OF SPHINCTER OF ODDI (11) Status post THR (total hip replacement) Code(s): Z96.649 - PRESENCE OF UNSPECIFIED ARTIFICIAL HIP JOINT (12) Tobacco use disorder Code(s): Z72.0 - TOBACCO USE (13) Abdominal pain Code(s): R10.9 - UNSPECIFIED ABDOMINAL PAIN Qualifiers: Abdominal location: unspecified location Qualified Code(s): R10.9 - Unspecified abdominal pain (14) Abdominal pain, diffuse Code(s): R10.84 - GENERALIZED ABDOMINAL PAIN (15) Acalculous cholecystitis Code(s): K81.9 - CHOLECYSTITIS, UNSPECIFIED (16) Acute acalculous cholecystitis Code(s): K81.0 - ACUTE CHOLECYSTITIS (17) Arteriosclerotic heart disease (ASHD) Code(s): I25.10 - ATHSCL HEART DISEASE OF [place] CORONARY ARTERY W/O ANG PCTRS (18) Cholecystitis, unspecified Code(s): K81.9 - CHOLECYSTITIS, UNSPECIFIED (19) Coronary artery disease Code(s): I25.10 - ATHSCL HEART DISEASE OF [place] CORONARY ARTERY W/O ANG PCTRS (20) Edema Code(s): R60.9 - EDEMA, UNSPECIFIED Qualifiers: Edema type: generalized Qualified Code(s): R60.1 - Generalized edema (21) Hypoalbuminemia Code(s): E88.09 - OTH DISORDERS OF PLASMA-PROTEIN METABOLISM, NEC (22) Lower extremity edema Code(s): R60.0 - LOCALIZED EDEMA Qualifiers: Laterality: bilateral Qualified Code(s): R60.0 - Localized edema (23) Migraine headache Code(s): G43.909 - MIGRAINE, UNSP, NOT INTRACTABLE, WITHOUT STATUS MIGRAINOSUS (24) Orthopnea Code(s): R06.01 - ORTHOPNEA (25) Peripheral neuropathy Code(s): G62.9 - POLYNEUROPATHY, UNSPECIFIED (26) Pitting edema Code(s): R60.9 - EDEMA, UNSPECIFIED (27) Postoperative pain Code(s): G89.18 - OTHER ACUTE POSTPROCEDURAL PAIN (28) Renal calculus Code(s): N20.0 - CALCULUS OF KIDNEY (29) Renal colic Code(s): N23 - UNSPECIFIED RENAL COLIC (30) Renal colic on right side Code(s): N23 - UNSPECIFIED RENAL COLIC (32) Right ankle sprain Code(s): S93.401A - SPRAIN OF UNSPECIFIED LIGAMENT OF RIGHT ANKLE, INIT ENCNTR (33) Right flank pain Code(s): R10.9 - UNSPECIFIED ABDOMINAL PAIN (34) Right kidney stone Code(s): N20.0 - CALCULUS OF KIDNEY (35) Risk for coronary artery disease greater than 20% in next 10 years Code(s): Z91.89 - [facility] PERSONAL RISK FACTORS, NOT ELSEWHERE CLASSIFIED (36) Shortness of breath Code(s): R06.02 - SHORTNESS OF BREATH (37) Urinary tract infection Code(s): N39.0 - URINARY TRACT INFECTION, SITE NOT SPECIFIED Qualifiers: Urinary tract infection type: site unspecified Hematuria presence: without hematuria Qualified Code(s): N39.0 - Urinary tract infection, site not specified (38) Abdominal discomfort Code(s): R10.9 - UNSPECIFIED ABDOMINAL PAIN (39) Acute on chronic systolic and diastolic heart failure, NYHA class 3 Code(s): I50.43 - ACUTE ON CHRONIC COMBINED SYSTOLIC AND DIASTOLIC HRT FAIL (40) CAD (coronary artery disease) Code(s): I25.10 - ATHSCL HEART DISEASE OF [place] CORONARY ARTERY W/O ANG PCTRS (41) CHF (congestive heart failure) Code(s): I50.9 - HEART FAILURE, UNSPECIFIED Qualifiers: Congestive heart failure type: unspecified congestive heart failure type Congestive heart failure chronicity: unspecified congestive heart failure chronicity Qualified Code(s): I50.9 - Heart failure, unspecified (42) Chronic systolic congestive heart failure Code(s): I50.22 - CHRONIC SYSTOLIC (CONGESTIVE) HEART FAILURE (43) Depression Code(s): F32.9 - MAJOR DEPRESSIVE DISORDER, SINGLE EPISODE, UNSPECIFIED (44) Diabetes Code(s): E11.9 - TYPE 2 DIABETES MELLITUS WITHOUT COMPLICATIONS (45) Hyperlipidemia Code(s): E78.5 - HYPERLIPIDEMIA, UNSPECIFIED (46) ICD (implantable cardioverter-defibrillator) in place Code(s): Z95.810 - PRESENCE OF AUTOMATIC (IMPLANTABLE) CARDIAC DEFIBRILLATOR (47) Substance abuse Code(s): F19.10 - OTHER PSYCHOACTIVE SUBSTANCE ABUSE, UNCOMPLICATED (48) Systolic heart failure Code(s): I50.20 - UNSPECIFIED SYSTOLIC (CONGESTIVE) HEART FAILURE Assessment/Plan - Problems (1) Postoperative abdominal pain Assessment/Plan: Dr. Stevens's f/u noted and appreciated. No gross CBD pathology; ERCP cancelled. Code(s): R10.9 - UNSPECIFIED ABDOMINAL PAIN G89.18 - OTHER ACUTE POSTPROCEDURAL PAIN (2) Dyspepsia Code(s): K30 - FUNCTIONAL DYSPEPSIA (3) Hypertension Assessment/Plan: On spironolactone, metoprolol, lisinopril (may increase dose of the latter), and furosemide. Amlodipine discontinued (episode of hypotension today, after pt complained of abdominal discomfort). F/u abdominal w/u with GI. Code(s): I10 - ESSENTIAL (PRIMARY) HYPERTENSION (4) Hypothyroidism Assessment/Plan: On synthroid; f/u free T3 and free T4 (mildly decreased TSH). Code(s): E03.9 - HYPOTHYROIDISM, UNSPECIFIED (5) Status post THR (total hip replacement) Code(s): Z96.649 - PRESENCE OF UNSPECIFIED ARTIFICIAL HIP JOINT (6) Tobacco use disorder Assessment/Plan: The paramount need to stop smoking was again discussed. Code(s): Z72.0 - TOBACCO USE (7) Coronary artery disease Code(s): I25.10 - ATHSCL HEART DISEASE OF [place] CORONARY ARTERY W/O ANG PCTRS (8) Edema Code(s): R60.9 - EDEMA, UNSPECIFIED Qualifiers: Edema type: generalized Qualified Code(s): R60.1 - Generalized edema (9) Hypoalbuminemia Code(s): E88.09 - OTH DISORDERS OF PLASMA-PROTEIN METABOLISM, NEC (10) Risk for coronary artery disease greater than 20% in next 10 years Code(s): Z91.89 - [place] PERSONAL RISK FACTORS, NOT ELSEWHERE CLASSIFIED (11) Chronic systolic congestive heart failure Assessment/Plan: continue metoprolol, spironolactone, lisinopril,and furosemide. Amlodipine d/elle (episode of hypotension. F/u BUN/Cr, electrolytes (replete K); Is and Os, daily weight. Code(s): I50.22 - CHRONIC SYSTOLIC (CONGESTIVE) HEART FAILURE (12) Depression Code(s): F32.9 - MAJOR DEPRESSIVE DISORDER, SINGLE EPISODE, UNSPECIFIED (13) Diabetes Code(s): E11.9 - TYPE 2 DIABETES MELLITUS WITHOUT COMPLICATIONS (14) Hyperlipidemia Code(s): E78.5 - HYPERLIPIDEMIA, UNSPECIFIED (15) ICD (implantable cardioverter-defibrillator) in place Code(s): Z95.810 - PRESENCE OF AUTOMATIC (IMPLANTABLE) CARDIAC DEFIBRILLATOR
--- NOTE | 2016-06-07 11:58 | EKG ---
Test Reason : Blood Pressure : / mmHG Vent. Rate : 088 BPM Atrial Rate : 088 BPM P-R Int : 176 ms QRS Dur : 124 ms QT Int : 408 ms P-R-T Axes : 059 074 062 degrees QTc Int : 493 ms SINUS RHYTHM WITH OCCASIONAL and consecutive PREMATURE VENTRICULAR COMPLEXES AND PREMATURE ATRIAL COMPLEXES POSSIBLE LEFT ATRIAL ENLARGEMENT CANNOT RULE OUT ANTEROSEPTAL INFARCT (CITED ON OR BEFORE 30-JUN-2015) ABNORMAL ECG WHEN COMPARED WITH ECG OF 25-APR-2016 09:27, PREMATURE VENTRICULAR COMPLEXES ARE NOW PRESENT PREMATURE ATRIAL COMPLEXES ARE NOW PRESENT QUESTIONABLE CHANGE IN INITIAL FORCES OF SEPTAL LEADS NONSPECIFIC T WAVE ABNORMALITY, IMPROVED IN INFERIOR LEADS Confirmed by RILEY BLAIR MD ([id number]) on 06/07/2016 11:57:36 AM Referred By: Confirmed By:RILEY BLAIR MD
[2016-06-07 14:16] LABS: ALPHA 2 MACROGLOBULINS,QN 231 mg/dL (110-276); BILIRUBIN TOTAL 1.8 mg/dL (0.0-1.2); GGT= 142 IU/L (0-60); GLUCOSE SERUM 81 mg/dL (65-99); HAPTOGLOBIN= 95 mg/dL (34-200); HEIGHT 63 Inches (.); TRIGLYCERIDES= 68 mg/dL (0-149)
[2016-06-07] MEDS: ALBUTEROL SO4 0.083% IH SOL 2.5 MG/3 ML VIAL.NEB. NEB PRN (19:00)
[2016-06-07] MEDS: ATORVASTATIN CA 20 MG TABLET (FP) PO SCH (21:03)
[2016-06-07] MEDS: SENNOSIDES 8.6MG TABLET (FP) PO SCH (21:05)
[2016-06-08] MEDS: DOCUSATE SODIUM 100 MG CAPSULE (FP) PO SCH ×2 (06:09→14:35)
[2016-06-08] MEDS: LEVOTHYROXINE NA 50 MCG TABLET (FP) PO SCH (06:24)
[2016-06-08 09:09] LABS: ALBUMIN 3.4 g/dl (3.4-5.0); CALCIUM 9.3 mg/dL (8.5-10.1); CREATININE 1.1 mg/dL (0.55-1.02); TOT PROT 7.1 g/dl (6.4-8.2)
--- NOTE | 2016-06-08 10:34 | PN ---
<Gia Daley - Last Filed: 06/08/16 10:34> Physical Exam: SUBJECTIVE: Patient seen and examined OBJECTIVE: Vital Signs Period Temp Pulse Resp BP Sys/Santoro Pulse Ox Last 24 Hr 96.0 F-98.4 F 63-78 16-20 97-137/61-84 93-95 GENERAL: The patient is awake, alert, and fully oriented, in no acute distress. HEAD: Normal with no signs of trauma. EYES: PERRL, extraocular movements intact, sclera anicteric, conjunctiva clear. No ptosis. ENT: Ears normal, nares patent, oropharynx clear without exudates, moist mucous membranes. NECK: Trachea midline, full range of motion, supple. LUNGS: Breath sounds equal, clear to auscultation bilaterally, no wheezes, no crackles, no accessory muscle use. HEART: Regular rate and rhythm, S1, S2 without murmur, rub or gallop. ABDOMEN: Soft, nontender, nondistended, normoactive bowel sounds, no guarding, no rebound, no hepatosplenomegaly, no masses. EXTREMITIES: 2+ pulses, warm, well-perfused, no edema. NEUROLOGICAL: Cranial nerves II through XII grossly intact. Normal speech, gait not observed. PSYCH: Normal mood, normal affect. SKIN: Warm, dry, normal turgor, no rashes or lesions noted Laboratory Results - last 24 hr 06/05/16 06/08/16 05:35 08:20 Haptoglobin 95 Sodium 134 L Potassium 3.5 Chloride 93 L Carbon Dioxide 32 Anion Gap 9 BUN 29 H Creatinine 1.1 H D Creat Clearance w eGFR 50.33 Glucose 81 Random Glucose 95 D Calcium 9.3 Total Bilirubin 1.8 H 2.0 H GGT 142 H AST 43 H 41 H ALT 24 28 Alkaline Phosphatase 152 H Liver Fibrosis Score 0.84 H Liver Fibrosis Stage Total Protein 7.1 Albumin 3.4 [id number] 231 Triglycerides 68 Cholesterol 113 Apolipoprotein A-1 82 L Patient Height (cm) 63 Patient Weight (kg) 161 CSF IgG Interpretation Active Medications Generic Name Dose Route Start Last Admin Trade Name Freq PRN Reason Stop Dose Admin Atorvastatin Calcium 20 mg 06/02/16 22:00 06/07/16 21:03 Lipitor - PO 20 mg HS RINA Administration Docusate Sodium 100 mg 06/02/16 22:00 06/08/16 06:09 Colace - PO Not Given TID RINA Levothyroxine Sodium 50 mcg 06/05/16 07:00 06/08/16 06:24 Synthroid - PO 50 mcg DAILY@0700 RINA Administration Lisinopril 10 mg 06/02/16 22:00 06/06/16 09:20 Prinivil PO 10 mg DAILY RINA Administration Metoprolol Succinate 200 mg 06/02/16 22:00 06/06/16 09:19 Toprol Xl - PO 200 mg DAILY RINA Administration Olanzapine 5 mg 06/03/16 10:00 06/07/16 21:05 Zyprexa - PO Not Given BID RINA Phytonadione 10 mg 06/05/16 13:00 06/07/16 10:06 Aqua Mephyton Injection - IM 06/08/16 12:59 Not Given DAILY RINA Senna 2 tab 06/02/16 22:00 06/07/16 21:05 Senna - PO Not Given HS RINA Spironolactone 25 mg 06/03/16 10:00 06/06/16 09:19 Aldactone - PO Not Given DAILY RINA ASSESSMENT/PLAN: Problem List - Problems (1) Acute combined systolic and diastolic ACC/AHA stage C congestive heart failure Code(s): I50.41 - ACUTE COMBINED SYSTOLIC AND DIASTOLIC (CONGESTIVE) HRT FAIL (2) CHF (congestive heart failure), NYHA class III Code(s): I50.9 - HEART FAILURE, UNSPECIFIED (3) CHF exacerbation Code(s): I50.9 - HEART FAILURE, UNSPECIFIED (4) Postoperative abdominal pain Code(s): R10.9 - UNSPECIFIED ABDOMINAL PAIN G89.18 - OTHER ACUTE POSTPROCEDURAL PAIN (5) Hypertension Code(s): I10 - ESSENTIAL (PRIMARY) HYPERTENSION (6) Hypothyroidism Code(s): E03.9 - HYPOTHYROIDISM, UNSPECIFIED (7) Sphincter of Oddi dysfunction Code(s): K83.4 - SPASM OF SPHINCTER OF ODDI (8) Status post THR (total hip replacement) Code(s): Z96.649 - PRESENCE OF UNSPECIFIED ARTIFICIAL HIP JOINT (9) Tobacco use disorder Code(s): Z72.0 - TOBACCO USE (10) Abdominal pain Code(s): R10.9 - UNSPECIFIED ABDOMINAL PAIN Qualifiers: Abdominal location: unspecified location Qualified Code(s): R10.9 - Unspecified abdominal pain (11) Abdominal pain, diffuse Code(s): R10.84 - GENERALIZED ABDOMINAL PAIN (12) Arteriosclerotic heart disease (ASHD) Code(s): I25.10 - ATHSCL HEART DISEASE OF [place] CORONARY ARTERY W/[facility] PCTRS (13) Coronary artery disease Code(s): I25.10 - ATHSCL HEART DISEASE OF [place] CORONARY ARTERY W/[facility] PCTRS (14) Edema Code(s): R60.9 - EDEMA, UNSPECIFIED Qualifiers: Edema type: generalized Qualified Code(s): R60.1 - Generalized edema (15) Hypoalbuminemia Code(s): E88.09 - OTH DISORDERS OF PLASMA-PROTEIN METABOLISM, NEC (16) Lower extremity edema Code(s): R60.0 - LOCALIZED EDEMA Qualifiers: Laterality: bilateral Qualified Code(s): R60.0 - Localized edema (17) Orthopnea Code(s): R06.01 - ORTHOPNEA (18) Peripheral neuropathy Code(s): G62.9 - POLYNEUROPATHY, UNSPECIFIED (19) Pitting edema Code(s): R60.9 - EDEMA, UNSPECIFIED (20) Postoperative pain Code(s): G89.18 - OTHER ACUTE POSTPROCEDURAL PAIN (21) Renal calculus Code(s): N20.0 - CALCULUS OF KIDNEY (23) Shortness of breath Code(s): R06.02 - SHORTNESS OF BREATH (24) Acute on chronic systolic and diastolic heart failure, NYHA class 3 Code(s): I50.43 - ACUTE ON CHRONIC COMBINED SYSTOLIC AND DIASTOLIC HRT FAIL (25) CAD (coronary artery disease) Code(s): I25.10 - ATHSCL HEART DISEASE OF [place] CORONARY ARTERY W/O ANG PCTRS (26) CHF (congestive heart failure) Code(s): I50.9 - HEART FAILURE, UNSPECIFIED Qualifiers: Congestive heart failure type: unspecified congestive heart failure type Congestive heart failure chronicity: unspecified congestive heart failure chronicity Qualified Code(s): I50.9 - Heart failure, unspecified (27) Chronic systolic congestive heart failure Code(s): I50.22 - CHRONIC SYSTOLIC (CONGESTIVE) HEART FAILURE (28) Depression Code(s): F32.9 - MAJOR DEPRESSIVE DISORDER, SINGLE EPISODE, UNSPECIFIED (29) Diabetes Code(s): E11.9 - TYPE 2 DIABETES MELLITUS WITHOUT COMPLICATIONS (30) Hyperlipidemia Code(s): E78.5 - HYPERLIPIDEMIA, UNSPECIFIED (31) ICD (implantable cardioverter-defibrillator) in place Code(s): Z95.810 - PRESENCE OF AUTOMATIC (IMPLANTABLE) CARDIAC DEFIBRILLATOR (32) Systolic heart failure Code(s): I50.20 - UNSPECIFIED SYSTOLIC (CONGESTIVE) HEART FAILURE (33) Transaminitis Code(s): R74.0 - NONSPEC ELEV OF LEVELS OF TRANSAMNS & LACTIC ACID DEHYDRGNSE (34) Hyperbilirubinemia Code(s): E80.6 - OTHER DISORDERS OF BILIRUBIN METABOLISM <Bayron Ibarra - Last Filed: 06/08/16 11:24> Physical Exam: ATTENDING PHYSICIAN STATEMENT I saw and evaluated the patient. I reviewed the resident's note and discussed the case with the resident. I agree with the resident's findings and plan as documented. SUBJECTIVE: seen and evaluated at the bedside OBJECTIVE: resting comfortably in no distress ASSESSMENT AND PLAN: 60yo F wtih CHF, [place] with stents x2, defibrillator/pacemaker and CABG, HTN, HLD, hypercholesterolemia, depression, CAD, hypothyroidism, kidney stone and peripheral neuropathy admitted for chronic abdominal pain Abdominal pain- appreciate GI evaluation and recommendations. possible ampullary stricture or tumor. CT scan done this AM. awaiting results. plan was for ERCP if stenting required but now on hold as per GI attending -CT scan shows dilation of CBD but no masses/stones -cont to trend LFT -follow up with GI as to next step in plan CHF -pt is well known to be non-compliant with any meds at home -currently being diuresed by private butter grader -cont betablocker, statin, ASA
[2016-06-08] MEDS: SPIRONOLACTONE 25 MG TABLET (FP) PO SCH (10:50)
[2016-06-08] MEDS: METOPROLOL SUCCINATE 100 MG TAB.SR.24H (FP) PO SCH (10:50)
[2016-06-08] MEDS: LISINOPRIL 10 MG TABLET (FP) PO SCH (10:50)
[2016-06-08] MEDS: PHYTONADIONE 10 MG/1 ML AMP IM SCH (10:50)
[2016-06-08] MEDS: OLANZapine 5 MG TABLET PO SCH (10:52)
[2016-06-08 11:37] LABS: BILIRUBIN,DIRECT 1.5 mg/dL (0.0-0.2)
--- NOTE | 2016-06-08 12:36 | PN ---
Progress Note, Physician Chief Complaint: Pt A&Ox3; no chest pain; legs are less painful; she massages her feet and the pain goes away. History of Present Illness: The patient is a 60-year-old black female, with a significant past medical history of severe systolic CHF, HTN, hypercholesterolemia, hypothyroidism, pacemaker/defibrillator, s/p CABG 2003; s/p coronary stents, s/p cholecystectomy , who presents to the emergency department with abdominal pain. The patient reports that the abdominal pain is located in the right abdomen, and radiates to the chest. She reports that the abdominal pain is the most severe in the region where she had a cholecystectomy. The patient denies shortness of breath, headache and dizziness. The patient denies fever, chills, nausea, vomit, diarrhea and constipation. The patient denies dysuria, frequency, urgency and hematuria. Allergies: aspirin Past surgical history: cholecystectomy 04/2016, CABG 2003, bypass, stents x2 Social history: Current everyday smoker - Current Medication List Current Medications: Active Medications Atorvastatin Calcium (Lipitor -) 20 mg PO [facility] Last Admin: 06/07/16 21:03 Dose: 20 mg Docusate Sodium (Colace -) 100 mg PO TID [facility] Last Admin: 06/08/16 06:09 Dose: Not Given Enoxaparin Sodium (Lovenox -) 40 mg SQ DAILY [facility] Levothyroxine Sodium (Synthroid -) 50 mcg PO DAILY@0700 [facility] Last Admin: 06/08/16 06:24 Dose: 50 mcg Lisinopril (Prinivil) 10 mg PO DAILY [facility] Last Admin: 06/08/16 10:50 Dose: 10 mg Metoprolol Succinate (Toprol Xl -) 200 mg PO DAILY [facility] Last Admin: 06/08/16 10:50 Dose: 200 mg Olanzapine (Zyprexa -) 5 mg PO BID [facility] Last Admin: 06/08/16 10:52 Dose: Not Given Phytonadione (Aqua Mephyton Injection -) 10 mg IM DAILY [facility] Stop: 06/08/16 12:59 Last Admin: 06/08/16 10:50 Dose: Not Given Senna (Senna -) 2 tab PO [facility] Last Admin: 06/07/16 21:05 Dose: Not Given Spironolactone (Aldactone -) 25 mg PO DAILY [facility] Last Admin: 06/08/16 10:50 Dose: Not Given - Objective Vital Signs: Vital Signs Temperature 97.8 F 06/08/16 08:32 Pulse Rate 69 06/08/16 08:32 Respiratory Rate 16 06/08/16 09:00 Blood Pressure 137/72 06/08/16 08:32 O2 Sat by Pulse Oximetry (%) 93 L 06/08/16 09:00 Constitutional: Yes: Calm Eyes: Yes: WNL HENT: Yes: WNL Neck: Yes: WNL Cardiovascular: Yes: Regular Rate and Rhythm. No: JVD Respiratory: Yes: Regular Gastrointestinal: Yes: Soft ...Rectal Exam: Yes: Deferred Genitourinary: No: Anuria Breast(s): Yes: WNL Musculoskeletal: Yes: Joint Swelling, Muscle Weakness Extremities: Yes: Cool Edema: Yes Edema: LLE: 1+, RLE: 1+ Peripheral Pulses WNL: No Peripheral Pulses: Left Doralis Pedis: 1+, Right Dorsalis Pedis: 1+ Integumentary: Yes: WNL Neurological: Yes: Alert, Oriented Psychiatric: Yes: WNL Labs: CBC, BMP 06/08/16 08:20 INR, PTT INR 1.58 (0.82-1.09) H 06/06/16 05:35 Abnormal Lab Results 06/05/16 06/08/16 05:35 08:20 Sodium 134 L Chloride 93 L BUN 29 H Creatinine 1.1 H D Total Bilirubin 1.8 H 2.0 H Direct Bilirubin 1.5 H GGT 142 H AST 43 H 41 H Alkaline Phosphatase 152 H Liver Fibrosis Score 0.84 H Apolipoprotein A-1 82 L - ....Imaging Ultrasound: Image Reviewed (NO DVT) Problem List - Problems (1) Postoperative abdominal pain Assessment/Plan: Dr. Stevens's f/u noted and appreciated. No gross CBD pathology; ERCP cancelled. Code(s): R10.9 - UNSPECIFIED ABDOMINAL PAIN G89.18 - OTHER ACUTE POSTPROCEDURAL PAIN (2) Dyspepsia Code(s): K30 - FUNCTIONAL DYSPEPSIA (3) Hypertension Assessment/Plan: On spironolactone, metoprolol, lisinopril (may increase dose of the latter), and furosemide. Amlodipine discontinued (episode of hypotension today, after pt complained of abdominal discomfort). F/u abdominal w/u with GI. Code(s): I10 - ESSENTIAL (PRIMARY) HYPERTENSION (4) Hypothyroidism Assessment/Plan: On synthroid; adjust per levels (mildly elevated free T4). Code(s): E03.9 - HYPOTHYROIDISM, UNSPECIFIED (5) Status post THR (total hip replacement) Code(s): Z96.649 - PRESENCE OF UNSPECIFIED ARTIFICIAL HIP JOINT (6) Tobacco use disorder Assessment/Plan: The paramount need to stop smoking was again discussed. She had decreased, but still smokes 5 cigarettes/day. Code(s): Z72.0 - TOBACCO USE (7) Coronary artery disease Code(s): I25.10 - ATHSCL HEART DISEASE OF [place] CORONARY ARTERY W/O ANG PCTRS (8) Edema Code(s): R60.9 - EDEMA, UNSPECIFIED Qualifiers: Edema type: generalized Qualified Code(s): R60.1 - Generalized edema (9) Hypoalbuminemia Code(s): E88.09 - OT DISORDERS OF PLASMA-PROTEIN METABOLISM, NEC (10) Risk for coronary artery disease greater than 20% in next 10 years Code(s): Z91.89 - OT PERSONAL RISK FACTORS, NOT ELSEWHERE CLASSIFIED (11) Chronic systolic congestive heart failure Assessment/Plan: continue metoprolol, spironolactone, lisinopril,and furosemide (the latter was held past 2 days due to hypotesion; restart as needed). Amlodipine d/elle (episode of hypotension). F/u BUN/Cr, electrolytes (replete K); Is and Os, daily weight. Code(s): I50.22 - CHRONIC SYSTOLIC (CONGESTIVE) HEART FAILURE (12) Depression Code(s): F32.9 - MAJOR DEPRESSIVE DISORDER, SINGLE EPISODE, UNSPECIFIED (13) Diabetes Code(s): E11.9 - TYPE 2 DIABETES MELLITUS WITHOUT COMPLICATIONS (14) Hyperlipidemia Code(s): E78.5 - HYPERLIPIDEMIA, UNSPECIFIED (15) ICD (implantable cardioverter-defibrillator) in place Code(s): Z95.810 - PRESENCE OF AUTOMATIC (IMPLANTABLE) CARDIAC DEFIBRILLATOR
--- NOTE | 2016-06-08 15:41 | DS ---
Physical Exam: SUBJECTIVE: Patient seen and examined Patient resting in bed comfortably, nad. No acute events overnight, afebrile and hemodynamically stable. BP meds restarted, normotensive. Mental status at its best so far, holds conversation. She reports mild abd pain that comes and goes, unchanged from baseline. She reports baseline mild SOB, baseline dry cough , and baseline LE edema. She denies chest pain, h/a, dizziness, n/v, diarrhea or LE pain. She was explained the possibility of autoimmune hepatitis and cirrhosis and urged to follow up in [facility] with a liver specialist. She was once again urged to be medication compliant. OBJECTIVE: Vital Signs Period Temp Pulse Resp BP Sys/Santoro Pulse Ox Last 24 Hr 96.0 F-98.4 F 63-73 16-20 111-137/67-84 93-97 PHYSICAL EXAM GENERAL: The patient is awake, alert, and fully oriented, in no acute distress. HEAD: Normal with no signs of trauma. EYES: PERRL, extraocular movements intact, sclera anicteric, conjunctiva clear. ENT: moist mucous membranes. NECK: supple. LUNGS: bibasilar ronchi HEART: Regular rate and rhythm, S1, S2 ABDOMEN: Soft, nondistended, normoactive bowel sounds, tender RUQ, RLQ. No guarding. EXTREMITIES: 1+ pulses, warm, well-perfused, 2+ edema b/l. NEUROLOGICAL: Cranial nerves II through XII grossly intact. Normal speech, gait not observed. PSYCH: depressed mood, flattened affect. SKIN: Warm, dry LABS Laboratory Results - last 24 hr 06/05/16 06/08/16 06/08/16 05:35 08:20 11:24 Sodium 134 L Potassium 3.5 Chloride 93 L Carbon Dioxide 32 Anion Gap 9 BUN 29 H Creatinine 1.1 H D Creat Clearance w eGFR 50.33 Random Glucose 95 D Calcium 9.3 Total Bilirubin 2.0 H Direct Bilirubin 1.5 H Cancelled AST 41 H ALT 28 Alkaline Phosphatase 152 H [place] Liver Fibrosis Y Total Protein 7.1 Albumin 3.4 HOSPITAL COURSE: Date of Admission:06/03/16 1 year old female with PMH of CHF, [place] with stents x2, defibrillator/pacemaker and CABG, HTN, HLD, hypercholesterolemia, DM, depression, CAD, hypothyroidism, kidney stone and peripheral neuropathy, who presented to the ED with the chief complaints of right sided abdominal pain x 1month. Abdominal pain localized in Right upper and lower quadrant pain, slowly progressing to worse, increased to 10/10 in intensity which brought her to the hospital, abdominal pain was non radiating. Since 2days, pains getting worse, radiating to her back, heart and legs. Patient is s/p cholestectomy in 05/05. She describes the pain in her legs as tingling and the pain in her abdomen as sharp. Patient has been eating a cup of ice a day for the chest pain and she says it helps. She denies dysuria , frequency and burning with urination. Denies headache, n/v/d, fever, chills, palpitations and no loss in appetite. She hasn't been compliant with her home meds. She was admitter with Acute on chronic systolic CHF exacerbation associated with medication noncompliantce. She states that she was told not to take heart meds despite multiple conversations explaining dire need to take her meds. Her admission CXR consistent with CHF, slightly worse than on d/c a month ago. Admission TTE revealed increased TR and MR compared to 1 yr ago. severely reduced EF, severely dilated LV, globally hypothetic. Cardiology has evaluated her. She remained on her prescribed cardiac meds but amlodipine was stopped because of a hypotensive episode. On admission, she also had abdominal pain with hyperbilirubinemia and transaminitis, she is s/p lap naomi due to acalcalous cholecystitis 05/05. Her t bili was 3.4 on admission, D bili 1.[address] abd/pelvis mild dilitation of CBD, no stone or ampullary mass. She was evaluated by surgery and GI and it was decided not to intervene, Her liver markers trended down over the course of admission. Her AMILCAR and liver fibrosis score were both elevated, possibly consistent with autoimmune hapatitis. She was discharged home in stable condition and asked to follow up in [facility] with a liver specialist Dr San, who would offer further recommendations for disease progression prevention. She did not require home O2. Her TSH was low on admission 0.33 so levothyroxine was decreased to 50mcg. PCP f/u was recommended to recheck values in 6w. She received LE duplex that was negative. Her mental status hasa been improved on antidepressant medication. Before D/C she was counceled on importance of medication compliance. Date of Discharge: 06/08/16 Minutes to complete discharge: 30 (na) Discharge Summary Reason For Visit: CHF/NYHA CLASS 3/ POST OPERA ABD PAIN Current Active Problems Acute combined systolic and diastolic ACC/AHA stage C congestive heart failure ( Acute) CHF (congestive heart failure), NYHA class III (Acute) CHF exacerbation (Acute) Chest pain (Acute) Cholecystitis without cholelithiasis (Acute) Hyperbilirubinemia (Acute) Postoperative abdominal pain (Acute) Transaminitis (Acute) Dyspepsia (Chronic) Hypertension (Chronic) Hypothyroidism (Chronic) Sphincter of Oddi dysfunction (Chronic) Status post THR (total hip replacement) (Chronic) Tobacco use disorder (Chronic) Condition: Stable - Instructions Diet, Activity, Other Instructions: Some of your lab work indicates the possibly of autoimmune hepatitis. It could explain your elevated liver labs and some of your abdominal pain. We recommend that you follow up in [facility] with a liver specialist Dr San , who would offer further recommendations for disease progression prevention. We lowered your Levothyroxine dose from 75, whihc was too much for you, to 50, new prescription is in your pharmacy Please follow up with your primary care doctor and gastrointerology Dr Martinez in 1 week Follow up with cardiology in 1 week Follow up with surgery for wound care Make sure to take all of your daily medication, including your heart medication , It is very important that you do so, otherwise you will have worsening heart function. Return to hospital if symptoms worsen. Referrals: Parrish Ferrer MD [Primary Care Provider] - Hiram Chaudhry MD [Staff Physician] - 2 Weeks Abilio Stevens MD [Staff Physician] - 1 Week Dick Cage MD [Staff Physician] - 2 Weeks Onesimo San [Non Staff, Medical] - 1 Week - Home Medications Comprehensive Discharge Medication List: Ambulatory Orders Atorvastatin Ca [Lipitor] 20 mg PO DAILY 05/29/12 Albuterol Sulfate [Proair Hfa -] 1 - 2 inh PO TID 06/10/14 Furosemide [Lasix -] 40 mg PO BID 06/10/14 Metoprolol Succinate [Toprol XL -] 200 mg PO DAILY 10/10/14 Levothyroxine [Synthroid -] 75 mcg PO DAILY 09/10/15 Lisinopril [Prinivil] 10 mg PO DAILY 10/03/15 Docusate Sodium [Colace -] 100 mg PO TID #90 capsule 10/04/15 Sennosides [Senna -] 2 tab PO HS #60 tablet 10/04/15 Acetaminophen [Tylenol .Regular Strength -] 650 mg PO Q4H PRN #30 tablet Aclidinium [place] [Tudorza -] 1 puff IH BID #10 inhaler 05/03/16 Budesonide/Formeterol Fumarate [SYMBICORT 160/4.5mcg -] 1 puff IH BID #10 inhaler 05/03/16 Furosemide [Lasix -] 40 mg PO BID@0600,1400 #60 tablet 05/03/16 Gabapentin [Neurontin -] 100 mg PO DAILY #30 capsule 05/03/16 Hydralazine HCl [Apresoline -] 10 mg PO TID #90 tablet 05/03/16 Isosorbide Mononitrate [Imdur -] 30 mg PO DAILY #30 tab.sr.24h 05/03/16 Olanzapine [Zyprexa -] 5 mg PO BID #60 tablet 05/03/16 Spironolactone [Aldactone -] 25 mg PO DAILY #60 tablet 05/03/16 Problem List - Problems (1) Acute combined systolic and diastolic ACC/AHA stage C congestive heart failure Code(s): I50.41 - ACUTE COMBINED SYSTOLIC AND DIASTOLIC (CONGESTIVE) HRT FAIL (2) CHF (congestive heart failure), NYHA class III Code(s): I50.9 - HEART FAILURE, UNSPECIFIED (3) CHF exacerbation Code(s): I50.9 - HEART FAILURE, UNSPECIFIED Qualifiers: (4) Postoperative abdominal pain Code(s): R10.9 - UNSPECIFIED ABDOMINAL PAIN G89.18 - OTHER ACUTE POSTPROCEDURAL PAIN (5) Hypertension Code(s): I10 - ESSENTIAL (PRIMARY) HYPERTENSION (6) Hypothyroidism Code(s): E03.9 - HYPOTHYROIDISM, UNSPECIFIED (7) Sphincter of Oddi dysfunction Code(s): K83.4 - SPASM OF SPHINCTER OF ODDI (8) Status post THR (total hip replacement) Code(s): Z96.649 - PRESENCE OF UNSPECIFIED ARTIFICIAL HIP JOINT (9) Tobacco use disorder Code(s): Z72.0 - TOBACCO USE (10) Abdominal pain Code(s): R10.9 - UNSPECIFIED ABDOMINAL PAIN Qualifiers: Abdominal location: unspecified location Qualified Code(s): R10.9 - Unspecified abdominal pain (11) Abdominal pain, diffuse Code(s): R10.84 - GENERALIZED ABDOMINAL PAIN (12) Arteriosclerotic heart disease (ASHD) Code(s): I25.10 - ATHSCL HEART DISEASE OF [place] CORONARY ARTERY W/O ANG PCTRS (13) Coronary artery disease Code(s): I25.10 - ATHSCL HEART DISEASE OF [place] CORONARY ARTERY W/O ANG PCTRS (14) Edema Code(s): R60.9 - EDEMA, UNSPECIFIED Qualifiers: Edema type: generalized Qualified Code(s): R60.1 - Generalized edema (15) Hypoalbuminemia Code(s): E88.09 - OTH DISORDERS OF PLASMA-PROTEIN METABOLISM, NEC (16) Lower extremity edema Code(s): R60.0 - LOCALIZED EDEMA Qualifiers: Laterality: bilateral Qualified Code(s): R60.0 - Localized edema (17) Orthopnea Code(s): R06.01 - ORTHOPNEA (18) Peripheral neuropathy Code(s): G62.9 - POLYNEUROPATHY, UNSPECIFIED (19) Pitting edema Code(s): R60.9 - EDEMA, UNSPECIFIED (20) Postoperative pain Code(s): G89.18 - OTHER ACUTE POSTPROCEDURAL PAIN (21) Renal calculus Code(s): N20.0 - CALCULUS OF KIDNEY (23) Shortness of breath Code(s): R06.02 - SHORTNESS OF BREATH (24) Acute on chronic systolic and diastolic heart failure, NYHA class 3 Code(s): I50.43 - ACUTE ON CHRONIC COMBINED SYSTOLIC AND DIASTOLIC HRT FAIL (25) CAD (coronary artery disease) Code(s): I25.10 - ATHSCL HEART DISEASE OF [place] CORONARY ARTERY W/O ANG PCTRS (26) CHF (congestive heart failure) Code(s): I50.9 - HEART FAILURE, UNSPECIFIED Qualifiers: Congestive heart failure type: unspecified congestive heart failure type Congestive heart failure chronicity: unspecified congestive heart failure chronicity Qualified Code(s): I50.9 - Heart failure, unspecified (27) Chronic systolic congestive heart failure Code(s): I50.22 - CHRONIC SYSTOLIC (CONGESTIVE) HEART FAILURE (28) Depression Code(s): F32.9 - MAJOR DEPRESSIVE DISORDER, SINGLE EPISODE, UNSPECIFIED (29) Diabetes Code(s): E11.9 - TYPE 2 DIABETES MELLITUS WITHOUT COMPLICATIONS (30) Hyperlipidemia Code(s): E78.5 - HYPERLIPIDEMIA, UNSPECIFIED (31) ICD (implantable cardioverter-defibrillator) in place Code(s): Z95.810 - PRESENCE OF AUTOMATIC (IMPLANTABLE) CARDIAC DEFIBRILLATOR (32) Systolic heart failure Code(s): I50.20 - UNSPECIFIED SYSTOLIC (CONGESTIVE) HEART FAILURE (33) Transaminitis Code(s): R74.0 - NONSPEC ELEV OF LEVELS OF TRANSAMNS & LACTIC ACID DEHYDRGNSE (34) Hyperbilirubinemia Code(s): E80.6 - OTHER DISORDERS OF BILIRUBIN METABOLISM This patient is new to me today: No Emergency Visit: Yes ED Registration Date: 06/03/16 Care time: The patient presented to the Emergency Department on the above date and was hospitalized for further evaluation of their emergent condition. Critical Care patient: No - Discharge Referral Referred to [facility] No
[2016-06-08 18:21] VITALS: BP 102/66; PULSE 64; TEMP 97.4
[2016-06-09] MEDS ORDERED: ENOXAPARIN NA (PORCINE) 40 MG/0.4 ML DISP.SYRIN SQ SCH (10:00)
== END 2016-06-08 20:14 | disposition home or self-care (01) | DRG 293 ==
LOC: JER 11:10 → JERBED 19:31 → OBSVTOIN 06-03 15:49 → J4W 06-03 16:41
PROVIDERS: ADMIT Internal Medicine; ATTEND Internal Medicine
DX: I50.23 Acute on chronic systolic (congestive) heart failure (principal); I25.10 Atherosclerotic heart disease of native coronary artery without angina pectoris; F17.210 Nicotine dependence, cigarettes, uncomplicated; Z95.1 Presence of aortocoronary bypass graft; Z95.5 Presence of coronary angioplasty implant and graft; E78.5 Hyperlipidemia, unspecified; E03.9 Hypothyroidism, unspecified; E11.42 Type 2 diabetes mellitus with diabetic polyneuropathy; F32.9 Major depressive disorder, single episode, unspecified; Z95.810 Presence of automatic (implantable) cardiac defibrillator; I25.2 Old myocardial infarction; K43.9 Ventral hernia without obstruction or gangrene; R16.0 Hepatomegaly, not elsewhere classified; Z91.14 Patient's other noncompliance with medication regimen; R60.1 Generalized edema; E88.09 Other disorders of plasma-protein metabolism, not elsewhere classified; E87.6 Hypokalemia; E83.42 Hypomagnesemia; T81.89XA Other complications of procedures, not elsewhere classified, initial encounter; Y83.8 Other surgical procedures as the cause of abnormal reaction of the patient, or of later complication, without mention of misadventure at the time of the procedure; Z96.641 Presence of right artificial hip joint; K81.9 Cholecystitis, unspecified; K83.4 Spasm of sphincter of Oddi
CPT/HCPCS: 36415; 71010-TC; 74178-TC; 76705-TC; 80053; 80076; 81003; 81015; 82105; 82150; 82172; 82247; 82248; 82465; 82550; 82553; 82728; 82947; 82977; 83010; 83516; 83540; 83550; 83615; 83690; 83735; 83880; 83883; 84100; 84439; 84443; 84450; 84460; 84478; 84481; 84484; 84550; 85025; 85027; 85044; 85379; 85610; 85660; 86038; 86140; 86301; 86704; 86706; 86708; 86803; 87086; 87340; 93005; 93010; 93306-TC; 93970-TC; 94640; 94761; 99285-25; G0378; J1644; Q9967

== ENCOUNTER 2016-07-09 12:00 | Inpatient (IN) | payer OTHER, BC ==
--- NOTE | 2016-07-09 12:10 | PDOC ---
History of Present Illness - General Chief Complaint: Chest Pain Stated Complaint: CHEST PAIN Time Seen by Provider: 07/09/16 12:10 History Source: Patient Exam Limitations: No Limitations - History of Present Illness Initial Comments: 07/09/16 16:34 CHIEF COMPLAINT: Chest pain PCP: Dr. Carissa Cardenas ([employer] [employer]) HISTORY OF PRESENT ILLNESS: 61 year old female presented to the ED with the chief complaints of left sided chest pain since 4am this morning. A/c to the patient, chest pain started suddenly, stabbing in nature, 10/10 in intensity, radiating towards her left neck, associated with SOB even at rest. Gives h/o orthopnea, uses 2pillow, no h/ o PND. Also reports to have cough, producing yellowish sputum, no blood noticed. No fever, chills, rigors or sweating. Patient has abdominal pain in the epigastric area, hurts more at the open wound from s/p lap naomi, radiating towards the suprapubic area. No nausea or vomiting. Has had B/L swelling which seems to be progressing to worse, noticed redness over the left knee area, pain of bilateral legs limiting her daily activities. Bowel/Bladder habit normal. Sleep disturbed. Appetite decreased. Lives with her sister. Had her pacemaker checked last Sunday and it was normal. PAST MEDICAL HISTORY: CHF, IN with stents x2, defibrillator/pacemaker and CABG, HTN, HLD, hypercholesterolemia, DM, depression, CAD, hypothyroidism, kidney stone and peripheral neuropathy PAST SURGICAL HISTORY: As mentioned above Social History: Smoking: Active smoker, Smokes 3 cigarettes/day x 35 years Alcohol: Doesn't drink alcohol Drugs: No illicit drug use Hospitalization: Recently admitted on 06/12/2016 for abdominal pain. Family History: Not known Allergies aspirin Adverse Reaction GI upset 07/09/16 17:10 07/09/16 17:22 Past History - Past Medical History Allergies/Adverse Reactions: Allergies Allergy/AdvReac Type Severity Reaction Status Date / Time aspirin AdvReac Mild gi upset Verified 07/09/16 12:09 Home Medications: Ambulatory Orders Unobtainable [Unobtainable] 07/09/16 Anemia: No Asthma: Yes Cancer: No Cardiac Disorders: Yes (Stents, PM/Defib.) CVA: No COPD: No CHF: Yes Dementia: No Diabetes: No GI Disorders: Yes Disorders: No HTN: Yes Hypercholesterolemia: Yes Liver Disease: Yes Psychiatric Problems: Yes (depression.) Suicide Attempt (Hx): No Seizures: No Thyroid Disease: Yes (Hypo) - Surgical History Abdominal Surgery: Yes (hx of peg tube.) Appendectomy: No Cardiac Surgery: Yes (bypass,stent x2, CABG 2003, ICD/Pacer 12/02) Cholecystectomy: Yes (04/2016) Lung Surgery: No (cabg 2003) Neurologic Surgery: No Orthopedic Surgery: Yes (Right THR) - Immunization History Immunization Up to Date: Yes - Psycho/Social/Smoking Cessation Hx Anxiety: No Suicidal Ideation: No Smoking Status: No Smoking History: Current every day smoker Have you smoked in the past 12 months: Yes Number of Cigarettes Smoked Daily: 5 'Breaking Loose' booklet given: 06/12/16 Hx Alcohol Use: No Drug/Substance Use Hx: No Substance Use Type: None Hx Substance Use Treatment: No Cardiac Specific PMH - Complaint Specific PMHX Pacemaker: No Review of Systems - Review of Systems Able to Perform ROS?: Yes Comments:: 07/09/16 16:53 REVIEW OF SYSTEMS CONSTITUTIONAL: Present: generalized weakness Absent: fever, chills, diaphoresis , malaise, loss of appetite, weight change HEENT: Absent: rhinorrhea, nasal congestion, throat pain, throat swelling, difficulty swallowing, mouth swelling, ear pain, eye pain, visual changes CARDIOVASCULAR: Present: chest pain, Absent: syncope, palpitations, irregular heart rate, lightheadedness, peripheral edema RESPIRATORY: Absent: cough, shortness of breath, dyspnea with exertion, orthopnea, wheezing, stridor, hemoptysis GASTROINTESTINAL: Present: abdominal pain, abdominal distension Absent: nausea, vomiting, diarrhea, constipation, melena, hematochezia GENITOURINARY: Absent: dysuria, frequency, urgency, hesitancy, hematuria, flank pain, genital pain MUSCULOSKELETAL: Absent: myalgia, arthralgia, joint swelling, back pain, neck pain SKIN: Absent: rash, itching, pallor HEMATOLOGIC/IMMUNOLOGIC: Absent: easy bleeding, easy bruising, lymphadenopathy, frequent infections ENDOCRINE: Absent: unexplained weight gain, unexplained weight loss, heat intolerance, cold intolerance NEUROLOGIC: Absent: headache, focal weakness or paresthesias, dizziness, unsteady gait, seizure, mental status changes, bladder or bowel incontinence PSYCHIATRIC: Absent: anxiety, depression, suicidal or homicidal ideation, hallucinations. Is the patient limited Brazilian proficient: No *Physical Exam - Vital Signs Last Vital Signs Temp Pulse Resp BP Pulse Ox 97.7 F 92 H 18 118/75 96 07/09/16 12:07 07/09/16 13:00 07/09/16 12:07 07/09/16 12:07 07/09/16 13:00 - Physical Exam Comments: 07/09/16 16:54 PHYSICAL EXAMINATION GENERAL: Awake, alert, and fully oriented, in mild distress secondary to abdominal pain. HEAD: Normal with no signs of trauma. EYES: EOM intact, no pallor or icterus EARS, NOSE, THROAT: Ears normal. Moist mucous membranes. NECK: Supple LUNGS: Breath sounds equal, Bibasilar crackles+ , absent wheeze. HEART: Regular rate and rhythm, normal S1 and S2 soft systolic murmur. ABDOMEN: edematous, 1.5 x 2cm open surgical wound, draining minimal serosanguinous fluid, Soft, tenderness Right upper quadrant> Left, distended + , normoactive bowel sounds, no guarding, no rebound, no masses. No hepatomegaly or splenomegaly. MUSCULOSKELETAL: Normal range of motion at all joints. No bony deformities or tenderness. No CVA tenderness. UPPER EXTREMITIES: 2+ pulses, warm, well-perfused. No cyanosis. No clubbing. Cap refill <2 seconds. No peripheral edema. LOWER EXTREMITIES: 2+ pulses, warm, well-perfused. calf tenderness. B/L pitting edema +++ upto the knees, erythema over the base of the left knee, raised temperature. NEUROLOGICAL: Cranial nerves II-XII intact. Normal speech. Gait not observed. PSYCHIATRIC: Cooperative. Poor eye contact. Appropriate mood and affect. SKIN: Warm, dry, normal turgor, no rashes or lesions noted. 07/09/16 17:32 ED Treatment Course - LABORATORY CBC & Chemistry Diagram: 07/09/16 14:52 07/09/16 13:00 - ADDITIONAL ORDERS Additional order review: Laboratory Results 07/09/16 07/09/16 07/09/16 15:40 13:00 13:00 INR PTT (Actin FS) Sodium Potassium Chloride Carbon Dioxide Anion Gap BUN Creatinine Creat Clearance w eGFR Random Glucose Lactic Acid 1.995 Calcium Magnesium Total Bilirubin AST ALT Alkaline Phosphatase Creatine Kinase CK-MB (CK-2) Troponin I B-Natriuretic Peptide Cancelled Total Protein Albumin Triglycerides Cholesterol Total LDL Cholesterol HDL Cholesterol Blood Type O POSITIVE Antibody Screen Negative 07/09/16 07/09/16 13:00 13:00 INR 1.71 H PTT (Actin FS) 32.1 Sodium 142 Potassium 3.6 Chloride 97 L Carbon Dioxide 32 Anion Gap 13 BUN 18 D Creatinine 0.9 Creat Clearance w eGFR > 60 Random Glucose 121 H D Lactic Acid Calcium 8.8 Magnesium 1.9 Total Bilirubin 3.1 H D AST 70 H D ALT 39 D Alkaline Phosphatase 164 H D Creatine Kinase 698 H D CK-MB (CK-2) 12.693 H Troponin I 0.20 H B-Natriuretic Peptide Total Protein 6.5 Albumin 2.8 L Triglycerides 67 Cholesterol 78 Total LDL Cholesterol 48 HDL Cholesterol 33 L D Blood Type Antibody Screen 07/09/16 07/09/16 14:52 13:00 RBC 4.87 Cancelled MCV 81.4 Cancelled MCHC 31.7 L Cancelled RDW 21.5 H D Cancelled MPV 8.8 Cancelled Neutrophils % 74.9 Cancelled Lymphocytes % 11.2 D Cancelled Monocytes % 13.7 H Cancelled Eosinophils % 0.0 Cancelled Basophils % 0.2 Cancelled - RADIOLOGY Radiology Studies Ordered: Category Date Time Status CHEST - PA [RAD] Stat Radiology 07/09/16 12:48 Completed DUPLEX VASCUL US-2LEGS [US] Stat Ultrasound 07/09/16 12:50 Completed - Medications Given in the ED: ED Medications Discontinued Medications Generic Name Dose Route Start Last Admin Trade Name Freq PRN Reason Stop Dose Admin Morphine Sulfate 4 mg 07/09/16 12:48 07/09/16 13:39 Morphine Injection - IVPUSH 07/09/16 12:49 4 mg ONCE ONE Administration Medical Decision Making - Medical Decision Making 07/09/16 12:00 Patient seen and examined at bed side. Patient looks dyspneic, has pain over the b/l legs, has chest pain. Will order CBC, CMP, Magnesium, phosphorus, UA, Doppler of lower extremities to r/o DVT IV Morphine 4mg stat 07/09/2016 14:30 Patient reassessed. Pain has resolved. Vitals unremarkable. Labs results noted, troponins elevated 0.20, BNP elevated, elevated liver enzymes Duplex of lower extremities exam limited but no evidence of DVT. Patient received IV Lasix 40mg 07/09/16 17:14 On the basis of history and physical examination, symptoms are more consistent with CHF exacerbation. However, would like to rule out ACS. R/O cellulitis. Plan: Admit in Telemetry Continuous cardiac monitoring Discussed with the patient and admitting resident. Illness, Investigation and Plan of care explained to the patient. She verbalized understanding. Case seen and discussed with Dr. Ramirez. 07/09/16 17:36 *DC/Admit/Observation/Transfer Diagnosis at time of Disposition: Anasarca, Acute exacerbation of CHF (congestive heart failure) - Discharge Dispostion Condition at time of disposition: Guarded Admit: Yes
[2016-07-09 12:13] VITALS: BMI 32.8
--- NOTE | 2016-07-09 12:40 | PDOC ---
Attending Attestation - Resident Resident Name: Cayt Jarrett - ED Attending Attestation I have performed the following: I have examined & evaluated the patient, The case was reviewed & discussed with the resident, I agree w/resident's findings & plan, Exceptions are as noted - HPI HPI: 61 yo F with multiple medical issues including CHF, autoimmune hepatitis, well- known to this ED, presenting with BLE edema, abdominal pain. She chronically has some leg edema, but this is much worse. It is associated with redness to the LLE. She also notes an episode of L-sided chest pain that started early this morning, sharp, severe, radiating to L neck, associated with SOB. - Physicial Exam PE: GENERAL: Awake, alert, and fully oriented. Appears ill, appears uncomfortable. HEAD: No signs of trauma EYES: PERRLA, EOMI, sclera anicteric, conjunctiva clear ENT: Auricles normal inspection, hearing grossly normal, nares patent, oropharynx clear without exudates. Dry mucosa NECK: Normal ROM, supple, no lymphadenopathy, JVD, or masses LUNGS: Breath sounds equal, clear to auscultation bilaterally. No wheezes, and no crackles HEART: Regular rate and rhythm, normal S1 and S2, no murmurs, rubs or gallops ABDOMEN: Soft, diffuse mild tenderness, normoactive bowel sounds. No guarding, no rebound. No masses. +Pitting edema to the abdominal wall. EXTREMITIES: Normal range of motion, 3+ pitting edema to BLE, with associated erythema to the L inner thigh. No clubbing or cyanosis. NEUROLOGICAL: Cranial nerves II through XII grossly intact. Normal speech. Motor and sensation intact. SKIN: Warm, Dry, normal turgor, no rashes. - Medical Decision Making Patient is well-known to this ED, has many chronic medical issues. She appears ill, and is not at her baseline. She has anasarca, appears to be in need of diuresis. Will check labs, renal function, then give lasix. Will require inpatient admission in light of the anasarca and chest pain, given her extensive history.
[2016-07-09] MEDS ORDERED: morphine CARPU-JECT 4 MG/1 ML DISP.SYRIN IVPUSH ONE (12:48)
[2016-07-09] MEDS ORDERED: morphine CARPU-JECT 4 MG/1 ML DISP.SYRIN ONE (13:35)
[2016-07-09 13:49] LABS: INR 1.71 (0.82-1.09)
[2016-07-09 13:52] LABS: ACTIVATED PTT 32.1 SECONDS (26.9-34.4)
[2016-07-09 13:53] LABS: ALBUMIN 2.8 g/dl (3.4-5.0); ANION GAP 13 (8-16); BILIRUBIN,TOTAL 3.1 mg/dL (0.2-1.0); CALCIUM 8.8 mg/dL (8.5-10.1); CHOLESTEROL 78 mg/dL (50-200); CO2 32 mmol/L (21-32); CREATININE 0.9 mg/dL (0.55-1.02); GLUCOSE,RANDOM 121 mg/dL (74-106); MAGNESIUM 1.9 mg/dL (1.8-2.4); SGPT/ALT 39 U/L (12-78); TOT PROT 6.5 g/dl (6.4-8.2)
[2016-07-09 13:54] LABS: ALK PHOS 164 U/L (45-117)
[2016-07-09 13:55] LABS: SGOT/AST 70 U/L (15-37)
[2016-07-09 14:09] LABS: LDL CHOLESTEROL (ONLY SJRH) 48 mg/dL (5-100)
[2016-07-09] MEDS ORDERED: FUROSEMIDE 40 MG/4 ML INJECTABLE VIAL IVPUSH ONE (14:44)
[2016-07-09 15:05] LABS: BASOPHIL 0.2 % (0-2.0); MCH 25.8 pg (25.7-33.7); MCHC 31.7 g/dl (32.0-36.0); MEAN CELL VOLUME 81.4 fl (80-96); MEAN PLT VOLUME 8.8 fl (7.5-11.1); NEUTROPHILS 74.9 % (42.8-82.8); PLATELET COUNT 221 K/MM3 (134-434); RDW 21.5 % (11.6-15.6); WHITE BLOOD COUNT 8.5 K/mm3 (4.0-10.0)
[2016-07-09 16:14] LABS: ANISOCYTOSIS 2+; PLATELET ESTIMATE ADEQUATE (NORMAL); POIKILOCYTOSIS 1+; POLYCHROMASIA 1+
[2016-07-09 16:15] LABS: OVALOCYTES 1+; TARGET CELLS RARE
[2016-07-09] MEDS ORDERED: FUROSEMIDE 40 MG/4 ML INJECTABLE VIAL ONE (18:02)
--- NOTE | 2016-07-09 18:04 | HP ---
CHIEF COMPLAINT: PCP: dr. Ferrer Carton Filler: Dr. Cage HISTORY OF PRESENT ILLNESS: 61 yr old woman with combined diastolic/systolic CHF, HTN, HLD, hypothyroidism, pacemaker/defibrillator, BIBEMS this morning for chest pain that radiated to her left arm. It was sharp, occurred at 4am when she was walking around her home , continued till she received pain medications in the ED, nonpositional, characertized as "dull". It was unlike anything she felt in the past. Since her last admission she says she has been compliant with her home medications but notes an increase in her b/l lower edema and worsening exertional dyspnea, only able to walk for 5 mins or less before needed to stop and catch her breath. Says she was seen by Dr. Cage last week for pacemaker interrogation and f/ u, pacemaker is working without problems and says Dr. Cage said everything looked fine. Saw Dr. San at [facility] on 07/07 for f/u of her abnormal LFt's, she has the progress note with her. Her hep panel was neg for Hep a, B and C, her LFt's had improved on repeat labs. AMILCAR was 1:1280, which was noted as non-specific and she did not required any further hepatology follow-up. She was recommended to go to the ER by Dr. San on Sunday. ER course was notable for: (1) lasix 40mg IVPush Recent Travel: none PAST MEDICAL HISTORY: Systolic/diastolic CHF; 05/2015 echo HTN HLD CAD s/p stents PAST SURGICAL HISTORY: cholestectomy 04/2016 CABG 2003 Social History: Smoking: current everyday smoker Alcohol: denies Drugs: denies Family History: Allergies aspirin Adverse Reaction (Mild, Verified 07/09/16 12:09) gi upset HOME MEDICATIONS: Home Medications Medication Instructions Recorded Amlodipine Besylate 10 mg PO 07/09/16 Atorvastatin Ca [Lipitor] 20 mg PO DAILY 07/09/16 Furosemide [Furosemide] 40 mg PO DAILY 07/09/16 Levothyroxine [Synthroid -] 75 mcg PO DAILY 07/09/16 Lisinopril [Prinivil] 20 mg PO DAILY 07/09/16 Metoprolol Succinate [Toprol Xl] 200 mg PO 07/09/16 Potassium Chloride 20 meq PO DAILY 07/09/16 Tamsulosin HCl [Flomax -] 0.4 mg PO DAILY 07/09/16 REVIEW OF SYSTEMS CONSTITUTIONAL: Absent: fever, chills, diaphoresis, generalized weakness, malaise, loss of appetite, weight change HEENT: Absent: rhinorrhea, nasal congestion, throat pain, throat swelling, difficulty swallowing, mouth swelling, ear pain, eye pain, visual changes CARDIOVASCULAR: Present: chest pain, Absent: syncope, palpitations, irregular heart rate, lightheadedness, peripheral edema RESPIRATORY: Present: cough, sob, Absent: dyspnea with exertion, orthopnea, wheezing, stridor, hemoptysis GASTROINTESTINAL: Present: abdominal pain, abdominal distension, Absent: nausea, vomiting, diarrhea, constipation, melena, hematochezia GENITOURINARY: Present: genital pain Absent: dysuria, frequency, urgency, hesitancy, hematuria, flank pain MUSCULOSKELETAL: Absent: myalgia, arthralgia, joint swelling, back pain, neck pain SKIN: Absent: rash, itching, pallor HEMATOLOGIC/IMMUNOLOGIC: Absent: easy bleeding, easy bruising, lymphadenopathy, frequent infections ENDOCRINE: Absent: unexplained weight gain, unexplained weight loss, heat intolerance, cold intolerance NEUROLOGIC: Absent: headache, focal weakness or paresthesias, dizziness, unsteady gait, seizure, mental status changes, bladder or bowel incontinence PSYCHIATRIC: Absent: anxiety, depression, suicidal or homicidal ideation, hallucinations. PHYSICAL EXAMINATION Vital Signs - 24 hr 07/09/16 07/09/16 12:07 13:00 Temperature 97.7 F Pulse Rate 90 92 H Respiratory 18 Rate Blood Pressure 118/75 O2 Sat by Pulse 95 96 Oximetry (%) GENERAL: Awake, alert, and fully oriented, in no acute distress. HEAD: Normal with no signs of trauma. EYES: Pupils equal, round and reactive to light, extraocular movements intact, sclera anicteric, conjunctiva clear. No lid lag. EARS, NOSE, THROAT: Ears normal, nares patent, oropharynx clear without exudates. Moist mucous membranes. NECK: Normal range of motion, supple without lymphadenopathy, JVD, or masses. LUNGS: Breath sounds equal, clear to auscultation bilaterally. No wheezes, and no crackles. HEART: distant heart sounds, Regular rate and rhythm. pacemaker in left upper chest, well healed scar, ttp over pacemaker. ABDOMEN: firm from umbilicus down, diffusely tender, distended, normoactive bowel sounds, healing ulcer in epigastrium with surrounding tenderness, skin weeping in inguinal area. MUSCULOSKELETAL: No bony deformities. No CVA tenderness. UPPER EXTREMITIES: 2+ pulses, warm, well-perfused. No cyanosis. No clubbing. Cap refill <2 seconds. No peripheral edema. LOWER EXTREMITIES: 1+ pulses, warm, well-perfused. erythema, 3+ edema upto umbilicus, ttp throughout legs, excoriations on left medial knee, small weeping laceration on right mid-villagran. NEUROLOGICAL: Normal speech. Normal gait. PSYCHIATRIC: Cooperative. Good eye contact. Appropriate mood and affect. Laboratory Results - last 24 hr 07/09/16 07/09/16 07/09/16 13:00 13:00 13:00 WBC Cancelled Corrected WBC (auto) Cancelled RBC Cancelled Hgb Cancelled Hct Cancelled MCV Cancelled MCHC Cancelled RDW Cancelled Plt Count Cancelled MPV Cancelled Neutrophils % Cancelled Lymphocytes % Cancelled Monocytes % Cancelled Eosinophils % Cancelled Basophils % Cancelled Differential Comment Cancelled Smudge Cells Cancelled Platelet Estimate Cancelled Platelet Comment Cancelled RBC Morphology Cancelled Polychromasia Poikilocytosis Anisocytosis Macrocytosis Target Cells Ovalocytes Morphology Comment INR 1.71 H PTT (Actin FS) 32.1 Sodium 142 Potassium 3.6 Chloride 97 L Carbon Dioxide 32 Anion Gap 13 BUN 18 D Creatinine 0.9 Creat Clearance w eGFR > 60 Random Glucose 121 H D Lactic Acid Calcium 8.8 Magnesium 1.9 Total Bilirubin 3.1 H D AST 70 H D ALT 39 D Alkaline Phosphatase 164 H D Creatine Kinase 698 H D CK-MB (CK-2) 12.693 H Troponin I 0.20 H B-Natriuretic Peptide Total Protein 6.5 Albumin 2.8 L Triglycerides 67 Cholesterol 78 Total LDL Cholesterol 48 HDL Cholesterol 33 L D Blood Type Antibody Screen 07/09/16 07/09/16 07/09/16 13:00 13:00 14:52 WBC 8.5 Corrected WBC (auto) RBC 4.87 Hgb 12.6 Hct 39.6 MCV 81.4 MCHC 31.7 L RDW 21.5 H D Plt Count 221 MPV 8.8 Neutrophils % 74.9 Lymphocytes % 11.2 D Monocytes % 13.7 H Eosinophils % 0.0 Basophils % 0.2 Differential Comment Smudge Cells Platelet Estimate Adequate Platelet Comment RBC Morphology Polychromasia 1+ Poikilocytosis 1+ Anisocytosis 2+ Macrocytosis 1+ Target Cells Rare Ovalocytes 1+ Morphology Comment Slide scanned INR PTT (Actin FS) Sodium Potassium Chloride Carbon Dioxide Anion Gap BUN Creatinine Creat Clearance w eGFR Random Glucose Lactic Acid Calcium Magnesium Total Bilirubin AST ALT Alkaline Phosphatase Creatine Kinase CK-MB (CK-2) Troponin I B-Natriuretic Peptide Cancelled Total Protein Albumin Triglycerides Cholesterol Total LDL Cholesterol HDL Cholesterol Blood Type O POSITIVE Antibody Screen Negative 07/09/16 15:40 WBC Corrected WBC (auto) RBC Hgb Hct MCV MCHC RDW Plt Count MPV Neutrophils % Lymphocytes % Monocytes % Eosinophils % Basophils % Differential Comment Smudge Cells Platelet Estimate Platelet Comment RBC Morphology Polychromasia Poikilocytosis Anisocytosis Macrocytosis Target Cells Ovalocytes Morphology Comment INR PTT (Actin FS) Sodium Potassium Chloride Carbon Dioxide Anion Gap BUN Creatinine Creat Clearance w eGFR Random Glucose Lactic Acid 1.995 Calcium Magnesium Total Bilirubin AST ALT Alkaline Phosphatase Creatine Kinase CK-MB (CK-2) Troponin I B-Natriuretic Peptide Total Protein Albumin Triglycerides Cholesterol Total LDL Cholesterol HDL Cholesterol Blood Type Antibody Screen Active Medications Atorvastatin Calcium (Lipitor -) 20 mg PO HS [facility] Enoxaparin Sodium (Lovenox -) 40 mg SQ DAILY [facility] Furosemide (Lasix Injection -) 40 mg IVPB BIDLASIX [facility] Insulin Aspart (Novolog Vial Sliding Scale -) 0 vial SQ ACHS [facility] PRN Reason: Protocol Levothyroxine Sodium (Synthroid -) 75 mcg PO DAILY@0700 [facility] Lisinopril (Prinivil) 20 mg PO DAILY [facility] Metoprolol Succinate (Toprol Xl -) 200 mg PO DAILY [facility] Potassium Chloride (K-Dur -) 20 meq PO DAILY [facility] Tamsulosin HCl (Flomax -) 0.4 mg PO DAILY@0830 [facility] ASSESSMENT/PLAN: 61 yr old woman with combined diastolic/systolic CHF, HTN, HLD, hypothyroidism, s/p pacemaker/defibrillator, admitted for anasarca secondary to acute on chronic CHF. #Acute on chronic exacerbation of CHF with anasarca - cardiology consult Dr. Garcia - lasix 40mg IV BID - monitor I&O, daily weights #Chest pain with elevated troponin - has a hx of elevated trops, likely from AICD, though given chest pain will trend #CAD - atorvastatin 20 mg po qhs #HTN - toprol xl 200 mg po daily #Hypothyroidism - 75 mcg qdaily #DM - no oral hypoglycemics, NISS DvT px: lovenox 40mg daily diet: low sodium Visit type - Emergency Visit Emergency Visit: Yes ED Registration Date: 07/09/16 Care time: The patient presented to the Emergency Department on the above date and was hospitalized for further evaluation of their emergent condition. - New Patient This patient is new to me today: Yes Date on this admission: 07/09/16 - Critical Care Critical Care patient: No
--- NOTE | 2016-07-09 18:32 | PN ---
Teaching Attending Note Name of Resident: Salomón Rosa ATTENDING PHYSICIAN STATEMENT I saw and evaluated the patient. I reviewed the resident's note and discussed the case with the resident. I agree with the resident's findings and plan as documented. SUBJECTIVE: Sitting on the chair, no fever or chills, no chest pain at this time. OBJECTIVE: Vital Signs Temperature 97.4 F L 07/09/16 18:05 Pulse Rate 85 07/09/16 18:05 Respiratory Rate 18 07/09/16 18:05 Blood Pressure 127/83 07/09/16 18:05 O2 Sat by Pulse Oximetry (%) 97 07/09/16 18:05 GENERAL: Awake, alert, and fully oriented, in no acute distress. HEAD: Normal with no signs of trauma. EYES: Pupils equal, round and reactive to light, extraocular movements intact, sclera anicteric, conjunctiva clear. EARS, NOSE, THROAT: Ears normal, oropharynx clear without exudates. Moist mucous membranes. NECK: Normal range of motion, supple without lymphadenopathy, JVD, or masses. LUNGS: decreased BS BL, No wheezes, and no crackles. No accessory muscle use. HEART: Regular rate and rhythm, S1 and S2 positive, no rub or gallop. ABDOMEN: Soft, distended abdomen, normoactive bowel sounds, no guarding, no rebound, no masses appreciated . MUSCULOSKELETAL: Normal range of motion at all joints. No bony deformities or tenderness. No CVA tenderness. EXTREMITIES: 2+ pulses, warm, 4 plus edema BL NEUROLOGICAL: Cranial nerves II-XII intact. Normal speech. Normal gait. PSYCHIATRIC: Cooperative. SKIN: Warm, dry, no lesions noted. CBCD WBC 8.5 K/mm3 (4.0-10.0) 07/09/16 14:52 RBC 4.87 M/mm3 (3.60-5.2) 07/09/16 14:52 Hgb 12.6 GM/dL (10.7-15.3) 07/09/16 14:52 Hct 39.6 % (32.4-45.2) 07/09/16 14:52 MCV 81.4 fl (80-96) 07/09/16 14:52 MCHC 31.7 g/dl (32.0-36.0) L 07/09/16 14:52 RDW 21.5 % (11.6-15.6) H D 07/09/16 14:52 Plt Count 221 K/MM3 (134-434) 07/09/16 14:52 MPV 8.8 fl (7.5-11.1) 07/09/16 14:52 CMP Sodium 142 mmol/L (136-145) 07/09/16 13:00 Potassium 3.6 mmol/L (3.5-5.1) 07/09/16 13:00 Chloride 97 mmol/L (98-107) L 07/09/16 13:00 Carbon Dioxide 32 mmol/L (21-32) 07/09/16 13:00 Anion Gap 13 (8-16) 07/09/16 13:00 BUN 18 mg/dL (7-18) D 07/09/16 13:00 Creatinine 0.9 mg/dL (0.55-1.02) 07/09/16 13:00 Creat Clearance w eGFR > 60 (>60) 07/09/16 13:00 Random Glucose 121 mg/dL (74-106) H D 07/09/16 13:00 Calcium 8.8 mg/dL (8.5-10.1) 07/09/16 13:00 Total Bilirubin 3.1 mg/dL (0.2-1.0) H D 07/09/16 13:00 AST 70 U/L (15-37) H D 07/09/16 13:00 ALT 39 U/L (12-78) D 07/09/16 13:00 Alkaline Phosphatase 164 U/L (45-117) H D 07/09/16 13:00 Total Protein 6.5 g/dl (6.4-8.2) 07/09/16 13:00 Albumin 2.8 g/dl (3.4-5.0) L 07/09/16 13:00 CARDIAC ENZYMES Creatine Kinase 698 IU/L (26-192) H D 07/09/16 13:00 Troponin I 0.20 ng/ml (0.00-0.05) H 07/09/16 13:00 Current Medications Generic Name Dose Route Start Last Admin Trade Name Freq PRN Reason Stop Dose Admin Amlodipine Besylate 10 mg 07/10/16 10:00 Norvasc - PO DAILY RINA Atorvastatin Calcium 20 mg 07/10/16 10:00 Lipitor - PO DAILY [facility] Enoxaparin Sodium 40 mg 07/10/16 10:00 Lovenox - SQ DAILY [facility] Insulin Aspart 0 vial 07/09/16 22:00 Novolog Vial Sliding Scale - SQ ACHS [facility] Protocol Levothyroxine Sodium 75 mcg 07/10/16 06:00 Synthroid - PO DAILY [facility] Lisinopril 20 mg 07/10/16 10:00 Prinivil PO DAILY [facility] Metoprolol Succinate 200 mg 07/10/16 10:00 Toprol Xl - PO DAILY [facility] Non-Formulary Medication 20 meq 07/10/16 10:00 Potassium Chloride [Potassium Chloride] PO DAILY [facility] Tamsulosin HCl 0.4 mg 07/10/16 10:00 Flomax - PO DAILY [facility] Home Medications Medication Instructions Recorded Amlodipine Besylate 10 mg PO 07/09/16 Atorvastatin Ca [Lipitor] 20 mg PO DAILY 07/09/16 Furosemide [Furosemide] 40 mg PO DAILY 07/09/16 Levothyroxine [Synthroid -] 75 mcg PO DAILY 07/09/16 Lisinopril [Prinivil] 20 mg PO DAILY 07/09/16 Metoprolol Succinate [Toprol Xl] 200 mg PO 07/09/16 Potassium Chloride 20 meq PO DAILY 07/09/16 Tamsulosin HCl [Flomax -] 0.4 mg PO DAILY 07/09/16 ASSESSMENT AND PLAN: 61 yr old woman with combined diastolic/systolic CHF, HTN, HLD, hypothyroidism, pacemaker/defibrillator, Presented to ED. with chest pain that radiated to her left arm. # Acute acute on chronic systolic exacerbation oF CHF, will get ECHo, cardiology consult , Lasix 40mg IV BID continue Prinivil, Toprol, Will hold Norvasc since can increase Lower extremity edema. will add spironolactone 25mg po daily # Anasarca, with possible Liver cirrhosis with ascites with elevated bilirubin and Alk Phos ;GI consult ; will also check her ammonia level # Elevated Troponins but had elevation of trops in the past . # Hx of CAD s/p CABG; on atorvastatin 20 mg po qhs continue # HTN ;hold norvasc 10 mg sinc ecan increase swelling of Lower extremities continue toprol xl 200 mg po qd # Hypothyroidism continue 75 mcg PO qd # Hx of T2DM continue with SS with coverage DvT px: lovenox 40mg daily
[2016-07-09] MEDS ORDERED: INSULIN SLIDING SCALE (NOVOLOG) 1 VIAL SQ SCH (22:00)
[2016-07-09] MEDS: ATORVASTATIN CA 20 MG TABLET (FP) PO SCH (22:30)
--- NOTE | 2016-07-10 00:33 | EKG ---
Test Reason : Blood Pressure : / mmHG Vent. Rate : 092 BPM Atrial Rate : 092 BPM P-R Int : 190 ms QRS Dur : 126 ms QT Int : 392 ms P-R-T Axes : 063 101 -11 degrees QTc Int : 484 ms SINUS RHYTHM WITH FREQUENT PREMATURE VENTRICULAR COMPLEXES NON-SPECIFIC INTRA-VENTRICULAR CONDUCTION BLOCK CANNOT RULE OUT ANTERIOR INFARCT (CITED ON OR BEFORE 30-JUN-2015) ABNORMAL ECG WHEN COMPARED WITH ECG OF 12-JUN-2016 12:47, NO SIGNIFICANT CHANGE WAS FOUND Confirmed by MICH ARVIZU MD ([id number]) on 07/10/2016 12:33:38 AM Referred By: Confirmed By:MICH ARVIZU MD
[2016-07-10] MEDS ORDERED: FUROSEMIDE 40 MG/4 ML INJECTABLE VIAL ONE (06:45)
[2016-07-10] MEDS ORDERED: LEVOTHYROXINE NA 25 MCG TABLET (FP) ONE (06:45)
[2016-07-10 07:03] LABS: BASOPHIL 0.2 % (0-2.0); MCH 25.7 pg (25.7-33.7); MEAN CELL VOLUME 80.5 fl (80-96); MEAN PLT VOLUME 8.1 fl (7.5-11.1); NEUTROPHILS 68.2 % (42.8-82.8); PLATELET COUNT 195 K/MM3 (134-434); WHITE BLOOD COUNT 7.4 K/mm3 (4.0-10.0)
[2016-07-10] MEDS: FUROSEMIDE 40 MG/4 ML INJECTABLE VIAL IVPB SCH ×2 (07:05→16:28)
[2016-07-10] MEDS: LEVOTHYROXINE NA 75 MCG TABLET (FP) PO SCH (07:06)
[2016-07-10] MEDS: INSULIN SLIDING SCALE (NOVOLOG) 1 VIAL SQ SCH ×4 (07:13→21:22)
[2016-07-10 07:28] LABS: ALBUMIN 2.7 g/dl (3.4-5.0); ANION GAP 10 (8-16); CALCIUM 8.8 mg/dL (8.5-10.1); CO2 34 mmol/L (21-32); CREATININE 0.8 mg/dL (0.55-1.02); GLUCOSE,RANDOM 77 mg/dL (74-106); MAGNESIUM 1.9 mg/dL (1.8-2.4); SGOT/AST 50 U/L (15-37); SGPT/ALT 34 U/L (12-78)
[2016-07-10 07:30] LABS: ALK PHOS 123 U/L (45-117); TOT PROT 5.9 g/dl (6.4-8.2)
--- NOTE | 2016-07-10 09:47 | PN ---
Progress Note (short form) - Note Progress Note: Patient is feeling better, with no acute distress. Temperature 97.4 F L 07/09/16 18:05 Pulse Rate 86 07/10/16 06:51 Respiratory Rate 18 07/10/16 06:51 Blood Pressure 132/81 07/10/16 06:51 O2 Sat by Pulse Oximetry (%) 97 07/10/16 06:51 GENERAL: Awake, alert, and fully oriented, in no acute distress. HEAD: Normal with no signs of trauma. EYES: Pupils equal, round and reactive to light, extraocular movements intact, sclera anicteric, conjunctiva clear. No lid lag. EARS, NOSE, THROAT: Ears normal, nares patent, oropharynx clear without exudates. Moist mucous membranes. NECK: Normal range of motion, supple without lymphadenopathy, JVD, or masses. LUNGS: Breath sounds equal, clear to auscultation bilaterally. No wheezes, and no crackles. No accessory muscle use. HEART: Regular rate and rhythm, S1 and S2 positive , BRITTNY 2/6 murmur, no rub or gallop. ABDOMEN: Soft, nontender, not distended, normoactive bowel sounds, no guarding, no rebound, no masses. No hepatomegaly or splenomegaly. EXTREMITIES: 2+ pulses, warm, well-perfused. positive for 4 plus peripheral edema. positive for Anasarca NEUROLOGICAL: Cranial nerves II-XII intact. Normal speech. Normal gait. PSYCHIATRIC: Cooperative. Good eye contact. Appropriate mood and affect. SKIN: Warm, dry, normal turgor, no rashes or lesions noted. CBCD WBC 7.4 K/mm3 (4.0-10.0) 07/10/16 06:45 RBC 4.66 M/mm3 (3.60-5.2) 07/10/16 06:45 Hgb 12.0 GM/dL (10.7-15.3) 07/10/16 06:45 Hct 37.5 % (32.4-45.2) 07/10/16 06:45 MCV 80.5 fl (80-96) 07/10/16 06:45 MCHC 32.0 g/dl (32.0-36.0) 07/10/16 06:45 RDW 21.0 % (11.6-15.6) H 07/10/16 06:45 Plt Count 195 K/MM3 (134-434) 07/10/16 06:45 MPV 8.1 fl (7.5-11.1) 07/10/16 06:45 CMP Sodium 142 mmol/L (136-145) 07/10/16 06:45 Potassium 2.9 mmol/L (3.5-5.1) L* 07/10/16 06:45 Chloride 98 mmol/L (98-107) 07/10/16 06:45 Carbon Dioxide 34 mmol/L (21-32) H 07/10/16 06:45 Anion Gap 10 (8-16) 07/10/16 06:45 BUN 21 mg/dL (7-18) H 07/10/16 06:45 Creatinine 0.8 mg/dL (0.55-1.02) 07/10/16 06:45 Creat Clearance w eGFR > 60 (>60) 07/10/16 06:45 Random Glucose 77 mg/dL (74-106) D 07/10/16 06:45 Calcium 8.8 mg/dL (8.5-10.1) 07/10/16 06:45 Total Bilirubin 4.0 mg/dL (0.2-1.0) H D 07/10/16 06:45 AST 50 U/L (15-37) H D 07/10/16 06:45 ALT 34 U/L (12-78) 07/10/16 06:45 Alkaline Phosphatase 123 U/L (45-117) H D 07/10/16 06:45 Total Protein 5.9 g/dl (6.4-8.2) L 07/10/16 06:45 Albumin 2.7 g/dl (3.4-5.0) L 07/10/16 06:45 CARDIAC ENZYMES Creatine Kinase 698 IU/L (26-192) H D 07/09/16 13:00 Troponin I 0.22 ng/ml (0.00-0.05) H 07/10/16 00:43 Current Medications Generic Name Dose Route Start Last Admin Trade Name Freq PRN Reason Stop Dose Admin Atorvastatin Calcium 20 mg 07/09/16 22:00 07/09/16 22:30 Lipitor - PO 20 mg HS RINA Administration Enoxaparin Sodium 40 mg 07/10/16 10:00 Lovenox - SQ DAILY [facility]INA Furosemide 40 mg 07/10/16 06:00 07/10/16 07:05 Lasix Injection - IVPB 40 mg BIDLASIX RINA Administration Insulin Aspart 1 vial 07/10/16 07:00 07/10/16 07:13 Novolog Vial Sliding Scale - SQ Not Given ACHS [facility] Protocol Levothyroxine Sodium 75 mcg 07/10/16 07:00 07/10/16 07:06 Synthroid - PO 75 mcg DAILY@0700 [facility] Administration Lisinopril 20 mg 07/10/16 10:00 Prinivil PO DAILY [facility] Metoprolol Succinate 200 mg 07/10/16 10:00 Toprol Xl - PO DAILY [facility] Potassium Chloride 20 meq 07/10/16 10:00 K-Dur - PO DAILY [facility] Spironolactone 25 mg 07/10/16 10:00 Aldactone - PO DAILY [facility] Tamsulosin HCl 0.4 mg 07/10/16 08:30 Flomax - PO DAILY@0830 [facility] Home Medications Medication Instructions Recorded Amlodipine Besylate 10 mg PO DAILY 07/09/16 Atorvastatin Ca [Lipitor] 20 mg PO DAILY 07/09/16 Furosemide [Furosemide] 40 mg PO DAILY 07/09/16 Levothyroxine [Synthroid -] 75 mcg PO DAILY 07/09/16 Lisinopril [Prinivil] 20 mg PO DAILY 07/09/16 Metoprolol Succinate [Toprol Xl] 200 mg PO DAILY 07/09/16 Potassium Chloride 20 meq PO DAILY 07/09/16 Tamsulosin HCl [Flomax -] 0.4 mg PO DAILY 07/09/16 repeat Echo: EJF 22.4%, severe global hypokinesis ASSESSMENT AND PLAN: 61 yr old woman with combined diastolic/systolic CHF, HTN, HLD, hypothyroidism, pacemaker/defibrillator, BIBEMS this morning for chest pain that radiated to her left arm. # Acute acute on chronic systolic exacerbation oF CHF, ECHo reviewed , cardiology appreciated, Lasix 40mg IV BID continue Prinivil, Toprol , Will hold Norvasc since can increase Lower extremity edema. will add spironolactone 25mg po daily # Acute Hypokalemia with level of 2.9 today started Spironolactone 25mg po daily. # Anasarca, with elevated bilirubin and Alk Phos , patient was seen by at [facility] with an impression that this is all due to CHF.will also check her ammonia level # Acute chest pain r/o ACS but had Elevated Troponins in the past as well, she is chest pain free at this time . # Hx of CAD s/p CABG; on atorvastatin 20 mg po qhs continue # HTN ;hold norvasc 10 mg since can increase swelling of Lower extremities continue toprol xl 200 mg po qd # Hypothyroidism continue 75 mcg PO qd # Hx of T2DM continue with SS with coverage DvT px: lovenox 40mg daily Visit type - Emergency Visit Emergency Visit: Yes ED Registration Date: 07/09/16 Care time: The patient presented to the Emergency Department on the above date and was hospitalized for further evaluation of their emergent condition. - New Patient This patient is new to me today: No - Critical Care Critical Care patient: No
[2016-07-10] MEDS ORDERED: POTASSIUM CHLORIDE TABS 20 MEQ TABLET.ER (FP) PO SCH (10:00)
[2016-07-10] MEDS ORDERED: amLODIPine BESYLATE 10 MG TABLET (FP) PO SCH (10:00)
[2016-07-10] MEDS ORDERED: PATIENT'S OWN MEDICATION (NON-FORMULARY) (Potassium Chloride [Potassium Chloride] 20 MEQ) PO SCH (10:00)
--- NOTE | 2016-07-10 11:56 | CON.CARD ---
Consult Consult Specialty:: Cardiology for Dr. العلي Referred by:: ER Reason for Consultation:: chest pain, sob, chf - History of Present Illness Chief Complaint: chest pain, sob, chf History of Present Illness: 61 year old woman with a history of HTN, HLD, DMII, CAD prior VA's, CABG, ICM with h/o severe LV dysfunction and chronic systolic CHF s/p ICD, possible autoimmune hepatitis, hypothyroid admitted with chest pain, sob, edema, orthopnea, cough, abdominal pain. Pt. seen and examined in the ER in nad. lying flat comfortably at this time. states she feels slightly better since coming to the hospital. 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 Had PEG placed 11/03 after suffering vocal cord damage ( EMS intubation). PEG was subsequently removed. 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 History of Recent Travel: No Home Medications - Allergies Allergies/Adverse Reactions: Allergies Allergy/AdvReac Type Severity Reaction Status Date / Time aspirin AdvReac Mild gi upset Verified 07/09/16 12:09 - Home Medications Home Medications: Ambulatory Orders Amlodipine Besylate 10 mg PO DAILY 07/09/16 Atorvastatin Ca [Lipitor] 20 mg PO DAILY 07/09/16 Furosemide [Furosemide] 40 mg PO DAILY 07/09/16 Levothyroxine [Synthroid -] 75 mcg PO DAILY 07/09/16 Lisinopril [Prinivil] 20 mg PO DAILY 07/09/16 Metoprolol Succinate [Toprol Xl] 200 mg PO DAILY 07/09/16 Potassium Chloride 20 meq PO DAILY 07/09/16 Tamsulosin HCl [Flomax -] 0.4 mg PO DAILY 07/09/16 Family Disease History - Family Disease History Family Disease History: Diabetes: Sister (s/p CABG in her 50s), Heart Disease: Father (had unknown cancer), Mother (lived to 94), Sister, [place]: Father Review of Systems - Review of Systems Constitutional: reports: Malaise, Weakness. denies: No Symptoms, Chills, Diaphoresis, Fever, Lethargy, Loss of Appetite, Night Sweats, Unintentional Wgt. Loss, Other Eyes: denies: No Symptoms, Blind Spots, Blurred Vision, Double Vision, Eye Pain , Floaters, Photophobia, Recent Change in Vision, Other HENT: denies: No Symptoms, Difficult Swallowing, Ear Discharge, Ear Pain, Epistaxis, Gingival Bleeding, Hearing Loss, Mouth Swelling, Nasal Congestion, Ocular Prosthesis, Throat Pain, Toothache, Ringing in Ears, Other Neck: denies: No Symptoms, Decreased ROM, Lumps, Pain on Movement, Stiffness, Swollen Glands, Tenderness, Other Cardiovascular: reports: Chest Pain, Edema, Shortness of Breath. denies: No Symptoms, Palpitations, Other Respiratory: reports: Exercise Intolerance, Orthopnea, SOB, SOB on Exertion. denies: No Symptoms, Cough, Hemoptysis, PND, Snoring, Wheezing, Other Gastrointestinal: reports: Abdominal Pain, Nausea. denies: No Symptoms, Bloating, Constipation, Diarrhea, Dysphagia, Indigestion, Melena, Rectal Bleeding, Vomiting, Vomiting Blood, Other Genitourinary: denies: No Symptoms, Burning, Discharge, Dysuria, Flank Pain, Frequency, Hematuria, Incontinence, Lesions, Menses, Pain, Testicular Mass, Testicular Pain, Testicular Swelling, Urgency, Vaginal Bleeding, Other Breasts: denies: No Symptoms Reported, See HPI, Breast Implants, Discharge from Nipple, Lumps, Pain, Skin Changes, Other Musculoskeletal: denies: No Symptoms, Back Pain, Crepitus, Decreased ROM, Extremity Pain, Joint Pain, Joint Swelling, Muscle Pain, Muscle Cramps, Muscle Weakness, Other Integumentary: reports: Erythema. denies: No Symptoms, Blister, Bruising, Change in Color, Eczema, Incision, Lesions, Lump, Pallor, Pruritis, Rash, Wound , Other Neurological: denies: No Symptoms, Change in LOC, Change in Speech, Confusion, Dizziness, Headache, Incoordination, Numbness, Parasthesia, Pre-Existing Deficit , Seizure, Syncope, Tremors, Unsteady Gait, Weakness, Other Endocrine: denies: No Symptoms, Excessive Sweating, Flushing, Increased Hunger, Increased Thirst, Intolerance to Cold, Intolerance to Heat, Unexplained Weight Gain, Unexplained Weight Loss, Other Hematology/Lymphatic: denies: No Symptoms, Easily Bruised, Excessive Bleeding, Swollen Glands, Other Psychiatric: denies: No Symptoms, Altered Sleep Pattern, Anxiety, Depression, Hallucinations, Panic, Paranoia, Suicidal, Other - Risk Factors Known Risk Factors: Yes: Diabetes Mellitus, Hypercholesterolemia, Hypertension, Physical Inactivity, Prior VA /Emb Stroke Vital Signs: Vital Signs Temperature 97.4 F L 07/09/16 18:05 Pulse Rate 86 07/10/16 06:51 Respiratory Rate 18 07/10/16 06:51 Blood Pressure 132/81 07/10/16 06:51 O2 Sat by Pulse Oximetry (%) 97 07/10/16 06:51 Constitutional: Yes: No Distress, Calm Eyes: Yes: WNL, Conjunctiva Clear, EOM Intact, PERRL HENT: Yes: WNL, Atraumatic, Normocephalic Neck: Yes: WNL, Supple, Trachea Midline Respiratory: Yes: Regular, Diminished, On Nasal O2, Rales. No: Rhonchi, SOB, Wheezes Gastrointestinal: Yes: Normal Bowel Sounds, Soft, Tenderness. No: Distention Renal/: Yes: WNL Cardiovascular: Yes: Regular Rate and Rhythm. No: Bradycardia, Tachycardia, Pulse Irregular, Gallop, Rub, Varicosities JVD: No Carotid Bruit: No PMI: Non-Displaced Heart Sounds: Yes: S1, S2. No: Split S2, S3, S4, Clicks, Gallop, Rub, Bruit Murmur: No: Systolic Murmur, Diastolic Murmur Musculoskeletal: Yes: Muscle Weakness Extremities: Yes: WNL Edema: Yes Edema: LLE: 2+, RLE: 2+ Peripheral Pulses WNL: Yes Integumentary: Yes: Erythema Neurological: Yes: Alert, Oriented Psychiatric: Yes: Alert, Oriented - Other Data Labs, Other Data: CBC, BMP 07/10/16 06:45 07/10/16 06:45 INR, PTT INR 1.71 (0.82-1.09) H 07/09/16 13:00 Troponin, BNP 07/09/16 07/10/16 18:05 00:43 Troponin I 0.26 H 0.22 H Troponin, BNP 07/09/16 07/10/16 18:05 00:43 Troponin I 0.26 H 0.22 H ekg 07/09-nsr 92bpm, ivcd, poor r progression, pvcs, nsst Echo: Report Reviewed Prior Cardiac Procedures: CABG, Cardiac Catheterization Imaging - Results Chest X-ray: Report Reviewed, Image Reviewed EKG: Report Reviewed, Image Reviewed Other: Report Reviewed, Image Reviewed Assessment/Plan 61 year old woman with a history of HTN, HLD, DMII, CAD prior VA's, CABG, ICM with h/o severe LV dysfunction and chronic systolic CHF s/p ICD, possible autoimmune hepatitis, hypothyroid admitted with chest pain, sob, edema, orthopnea, cough, abdominal pain. SOB/edema-acute on chronic systolic CHF, h/o severe LV dysfunction, ischemic cardiomyopathy, h/o ICD -echo reviewed, does not appear to be sig change from prior echos, severe LV dysfunction -Cont Lasix as ordered -cont other home meds -monitor strict I/Os and daily weights -fluid restriction -Tele monitoring -monitor bun/creat, electrolytes and replete as needed chest pain-atypical, unlikely ACS, h/o CAD as above -cardiac enzymes wnl -no sig ischemia on ekg -echo as above -will review most recent ischemic work up with Dr. العلي and Fauzia
[2016-07-10] MEDS: TAMSULOSIN HCL 0.4 MG CAP.ER.24H (FP) PO SCH (12:33)
[2016-07-10] MEDS: METOPROLOL SUCCINATE 100 MG TAB.SR.24H (FP) PO SCH (12:33)
[2016-07-10] MEDS: ENOXAPARIN NA (PORCINE) 40 MG/0.4 ML DISP.SYRIN SQ SCH ×2 (12:33→14:59)
[2016-07-10] MEDS: SPIRONOLACTONE 25 MG TABLET (FP) PO SCH ×2 (12:33→17:11)
[2016-07-10] MEDS: LISINOPRIL 20 MG TABLET (FP) PO SCH (12:33)
[2016-07-10] MEDS ORDERED: METOPROLOL TARTRATE 50 MG TABLET (FP) ONE (15:01)
[2016-07-10] MEDS ORDERED: SPIRONOLACTONE 25 MG TABLET (FP) ONE (15:02)
[2016-07-10] MEDS ORDERED: POTASSIUM CHLORIDE TABS 20 MEQ TABLET.ER (FP) PO ONE (16:21)
[2016-07-10] MEDS: POTASSIUM CHLORIDE TABS 20 MEQ TABLET.ER (FP) PO SCH (21:22)
[2016-07-10] MEDS: ATORVASTATIN CA 20 MG TABLET (FP) PO SCH (21:22)
[2016-07-11] MEDS: INSULIN SLIDING SCALE (NOVOLOG) 1 VIAL SQ SCH ×4 (06:00→21:47)
[2016-07-11] MEDS: LEVOTHYROXINE NA 75 MCG TABLET (FP) PO SCH (06:35)
[2016-07-11] MEDS: FUROSEMIDE 40 MG/4 ML INJECTABLE VIAL IVPB SCH ×2 (06:35→14:59)
[2016-07-11] MEDS ORDERED: LACTULOSE 20 GM/30 ML UDC (FOR ORAL USE ONLY) PO PRN (07:24)
[2016-07-11] MEDS ORDERED: LACTULOSE 20 GM/30 ML UDC (FOR ORAL USE ONLY) PO SCH (08:00)
[2016-07-11 08:16] LABS: ALBUMIN 2.7 g/dl (3.4-5.0); BILIRUBIN,TOTAL 3.9 mg/dL (0.2-1.0); CALCIUM 8.2 mg/dL (8.5-10.1); CREATININE 1.4 mg/dL (0.55-1.02); MAGNESIUM 1.8 mg/dL (1.8-2.4); TOT PROT 5.7 g/dl (6.4-8.2)
--- NOTE | 2016-07-11 09:19 | PN ---
Physical Exam: SUBJECTIVE: Patient seen and examined. Chest pain resolved. Denies SOB, fevers, cough. c/o abdominal and LE pain and swelling. OBJECTIVE: Vital Signs Period Temp Pulse Resp BP Sys/Santoro Pulse Ox Last 24 Hr 98 F-98.2 F 48-83 18-20 85-124/49-75 97-98 GENERAL: The patient is awake, alert, and fully oriented, in no acute distress. EYES: PERRL, extraocular movements intact, sclera anicteric, conjunctiva clear. No ptosis. ENT: Ears normal, nares patent, oropharynx clear without exudates, moist mucous membranes. NECK: Trachea midline, supple. LUNGS: poor air entry, on nasal cannula 2lpm, basilar rales. no wheezing, no crackles. no accessory muscle use. HEART: Regular rate and rhythm, S1, S2 without murmur, rub or gallop. ABDOMEN: firm from umbilicus down, diffusely tender, distended, normoactive bowel sounds, healing ulcer in epigastrium with surrounding tenderness, skin dry in inguinal area. EXTREMITIES: LE: b/l 1+ pulses, warm, well-perfused. erythema, 3+ edema upto umbilicus, ttp throughout legs, excoriations on left medial knee - closed without bleeding, small laceration on right mid-villagran without discharge. NEUROLOGICAL:Normal speech, gait steady with cane. Laboratory Results - last 24 hr 07/10/16 07/10/16 07/11/16 17:00 22:32 05:35 Sodium 141 Potassium 3.2 L Chloride 98 Carbon Dioxide 31 Anion Gap 12 BUN 30 H D Creatinine 1.4 H D Creat Clearance w eGFR 37.98 POC Glucometer 112 70 Random Glucose 91 Calcium 8.2 L Magnesium 1.8 Total Bilirubin 3.9 H AST 64 H D ALT 40 Alkaline Phosphatase 148 H D Total Protein 5.7 L Albumin 2.7 L 07/11/16 05:58 Sodium Potassium Chloride Carbon Dioxide Anion Gap BUN Creatinine Creat Clearance w eGFR POC Glucometer 106 Random Glucose Calcium Magnesium Total Bilirubin AST ALT Alkaline Phosphatase Total Protein Albumin Active Medications Generic Name Dose Route Start Last Admin Trade Name Freq PRN Reason Stop Dose Admin Atorvastatin Calcium 20 mg 07/09/16 22:00 07/10/16 21:22 Lipitor - PO Not Given HS [facility] Enoxaparin Sodium 40 mg 07/10/16 10:00 07/10/16 14:59 Lovenox - SQ Not Given DAILY [facility] Furosemide 40 mg 07/10/16 06:00 07/11/16 06:35 Lasix Injection - IVPB 40 mg BIDLASIX RINA Administration Insulin Aspart 1 vial 07/10/16 07:00 07/11/16 06:00 Novolog Vial Sliding Scale - SQ Not Given ACHS [facility] Protocol Lactulose 20 gm 07/11/16 08:00 Cephulac (Oral Use) PO TID [facility] Levothyroxine Sodium 75 mcg 07/10/16 07:00 07/11/16 06:35 Synthroid - PO 75 mcg DAILY@0700 [facility] Administration Lisinopril 20 mg 07/10/16 10:00 07/10/16 12:33 Prinivil PO 20 mg DAILY [facility] Administration Metoprolol Succinate 200 mg 07/10/16 10:00 07/10/16 12:33 Toprol Xl - PO 200 mg DAILY [facility] Administration Potassium Chloride 20 meq 07/10/16 22:00 07/10/16 21:22 K-Dur - PO Not Given BID [facility] Spironolactone 25 mg 07/10/16 10:00 07/10/16 17:11 Aldactone - PO Not Given DAILY [facility] Tamsulosin HCl 0.4 mg 07/10/16 08:30 07/10/16 12:33 Flomax - PO 0.4 mg DAILY@0830 [facility] Administration ASSESSMENT/PLAN: 61 yr old woman with combined diastolic/systolic CHF, HTN, HLD, hypothyroidism, s/p pacemaker/defibrillator, admitted for anasarca secondary to acute on chronic CHF. - patient has been refusing medications. - discussed with patient the importance of medication adherence, states understanding. - elevated ammonia - lactulose 20mg. #Acute on chronic exacerbation of CHF with anasarca - lasix 40mg IV BID - aldactone 25mg po daily - cardiology consult Dr. Garcia - monitor I&O, daily weights #hypokalemia - likely from diuretic use - 20meq po daily bid #CAD - atorvastatin 20 mg po qhs #HTN - pt is bradycardic HR at times in 49, she is paced and has a hx of SVT's will continue toprol with close monitoring. - toprol xl 200 mg po daily #Hypothyroidism - 75 mcg qdaily #Smoking cessation - declined nicotine patch #DM - no oral hypoglycemics, NISS #Chest pain with elevated troponin - resolved. DvT px: lovenox 40mg daily diet: low sodium Visit type - Emergency Visit Emergency Visit: No - New Patient This patient is new to me today: No - Critical Care Critical Care patient: No
[2016-07-11] MEDS: METOPROLOL SUCCINATE 100 MG TAB.SR.24H (FP) PO SCH (12:23)
[2016-07-11] MEDS: ENOXAPARIN NA (PORCINE) 40 MG/0.4 ML DISP.SYRIN SQ SCH (12:23)
[2016-07-11] MEDS: LISINOPRIL 20 MG TABLET (FP) PO SCH (12:23)
[2016-07-11] MEDS: POTASSIUM CHLORIDE TABS 20 MEQ TABLET.ER (FP) PO SCH ×2 (12:23→21:46)
[2016-07-11] MEDS: SPIRONOLACTONE 25 MG TABLET (FP) PO SCH (12:23)
[2016-07-11] MEDS: TAMSULOSIN HCL 0.4 MG CAP.ER.24H (FP) PO SCH (12:24)
[2016-07-11] MEDS ORDERED: LACTULOSE 20 GM/30 ML UDC (FOR ORAL USE ONLY) PO ONE (12:30)
--- NOTE | 2016-07-11 17:24 | PN ---
Teaching Attending Note Name of Resident: Salomón Rosa ATTENDING PHYSICIAN STATEMENT I saw and evaluated the patient. I reviewed the resident's note and discussed the case with the resident. I agree with the resident's findings and plan as documented. SUBJECTIVE: Patient is feeling better with no acute distress, swelling is better. OBJECTIVE: Vital Signs Temperature 98.3 F 07/11/16 10:00 Pulse Rate 68 07/11/16 14:00 Respiratory Rate 20 07/11/16 14:00 Blood Pressure 103/58 07/11/16 14:00 O2 Sat by Pulse Oximetry (%) 98 07/11/16 10:00 GENERAL: Awake, alert, and fully oriented, in no acute distress. HEAD: Normal with no signs of trauma. EYES: Pupils equal, round and reactive to light, extraocular movements intact, sclera anicteric, conjunctiva clear. No lid lag. EARS, NOSE, THROAT: Ears normal, nares patent, oropharynx clear without exudates. Moist mucous membranes. NECK: Normal range of motion, supple without lymphadenopathy, JVD, or masses. LUNGS: Breath sounds equal, clear to auscultation bilaterally. No wheezes, and no crackles. No accessory muscle use. HEART: Regular rate and rhythm, S1 and S2 positive , BRITTNY 2/6 murmur, no rub or gallop. ABDOMEN: Soft, nontender, not distended, normoactive bowel sounds, no guarding, no rebound, no masses. EXTREMITIES: 2+ pulses, warm, well-perfused. positive for 4 plus peripheral edema. positive for Anasarca NEUROLOGICAL: Cranial nerves II-XII intact. Normal speech. Normal gait. PSYCHIATRIC: Cooperative. Good eye contact. Appropriate mood and affect. SKIN: Warm, dry, normal turgor, no rashes or lesions noted. CBCD WBC 7.4 K/mm3 (4.0-10.0) 07/10/16 06:45 RBC 4.66 M/mm3 (3.60-5.2) 07/10/16 06:45 Hgb 12.0 GM/dL (10.7-15.3) 07/10/16 06:45 Hct 37.5 % (32.4-45.2) 07/10/16 06:45 MCV 80.5 fl (80-96) 07/10/16 06:45 MCHC 32.0 g/dl (32.0-36.0) 07/10/16 06:45 RDW 21.0 % (11.6-15.6) H 07/10/16 06:45 Plt Count 195 K/MM3 (134-434) 07/10/16 06:45 MPV 8.1 fl (7.5-11.1) 07/10/16 06:45 CMP Sodium 141 mmol/L (136-145) 07/11/16 05:35 Potassium 3.2 mmol/L (3.5-5.1) L 07/11/16 05:35 Chloride 98 mmol/L (98-107) 07/11/16 05:35 Carbon Dioxide 31 mmol/L (21-32) 07/11/16 05:35 Anion Gap 12 (8-16) 07/11/16 05:35 BUN 30 mg/dL (7-18) H D 07/11/16 05:35 Creatinine 1.4 mg/dL (0.55-1.02) H D 07/11/16 05:35 Creat Clearance w eGFR 37.98 (>60) 07/11/16 05:35 Random Glucose 91 mg/dL (74-106) 07/11/16 05:35 Calcium 8.2 mg/dL (8.5-10.1) L 07/11/16 05:35 Total Bilirubin 3.9 mg/dL (0.2-1.0) H 07/11/16 05:35 AST 64 U/L (15-37) H D 07/11/16 05:35 ALT 40 U/L (12-78) 07/11/16 05:35 Alkaline Phosphatase 148 U/L (45-117) H D 07/11/16 05:35 Total Protein 5.7 g/dl (6.4-8.2) L 07/11/16 05:35 Albumin 2.7 g/dl (3.4-5.0) L 07/11/16 05:35 CARDIAC ENZYMES Creatine Kinase 698 IU/L (26-192) H D 07/09/16 13:00 Troponin I 0.22 ng/ml (0.00-0.05) H 07/10/16 00:43 Current Medications Generic Name Dose Route Start Last Admin Trade Name Freq PRN Reason Stop Dose Admin Atorvastatin Calcium 20 mg 07/09/16 22:00 07/10/16 21:22 Lipitor - PO Not Given HS [facility] Enoxaparin Sodium 40 mg 07/10/16 10:00 07/11/16 12:23 Lovenox - SQ Not Given DAILY [facility] Furosemide 40 mg 07/10/16 06:00 07/11/16 14:59 Lasix Injection - IVPB 40 mg BIDLASIX [facility] Administration Insulin Aspart 1 vial 07/10/16 07:00 07/11/16 12:24 Novolog Vial Sliding Scale - SQ Not Given ACHS [facility] Protocol Levothyroxine Sodium 75 mcg 07/10/16 07:00 07/11/16 06:35 Synthroid - PO 75 mcg DAILY@0700 [facility] Administration Lisinopril 20 mg 07/10/16 10:00 07/11/16 12:23 Prinivil PO Not Given DAILY [facility] Metoprolol Succinate 200 mg 07/10/16 10:00 07/11/16 12:23 Toprol Xl - PO Not Given DAILY [facility] Potassium Chloride 20 meq 07/10/16 22:00 07/11/16 12:23 K-Dur - PO 20 meq BID [facility] Administration Spironolactone 25 mg 07/10/16 10:00 07/11/16 12:23 Aldactone - PO 25 mg DAILY [facility] Administration Tamsulosin HCl 0.4 mg 07/10/16 08:30 07/11/16 12:24 Flomax - PO Not Given DAILY@0830 [facility] Laboratory Tests 07/09/16 07/10/16 07/10/16 13:00 00:43 06:45 Potassium 2.9 L* BUN 18 D 21 H Creatinine 0.9 0.8 Ammonia 52.96 H 07/11/16 05:35 Potassium 3.2 L BUN 30 H D Creatinine 1.4 H D Ammonia repeat Echo: EJF 22.4%, severe global hypokinesis ASSESSMENT AND PLAN: 61 yr old woman with combined diastolic/systolic CHF, HTN, HLD, hypothyroidism, pacemaker/defibrillator, BIBEMS this morning for chest pain that radiated to her left arm. # Acute acute on chronic systolic exacerbation oF CHF, Echo reviewed , cardiology appreciated, Lasix 40mg IV BID continue Prinivil, Toprol , Will hold Norvasc since can increase Lower extremity edema. will add spironolactone 25mg po daily # Acute Hypokalemia with level of 2.9--> 3.2 today , continue Spironolactone 25mg po daily. Will check level in am. # Anasarca, with elevated bilirubin and Alk Phos , patient was seen by at [facility] with an impression that this is all due to CHF. # Ammonia level: 52.96 start the patient on lactulose 2x per day # Acute chest pain r/o ACS but had Elevated Troponins in the past as well, she is chest pain free at this time . # Hx of CAD s/p CABG; on atorvastatin 20 mg po qhs continue # HTN ;hold norvasc 10 mg since can increase swelling of Lower extremities continue toprol xl 200 mg po qd # Hypothyroidism continue 75 mcg PO qd # Hx of T2DM continue with SS with coverage DvT px: lovenox 40mg daily
--- NOTE | 2016-07-11 17:34 | PN ---
Progress Note (short form) - Note Progress Note: Consult dictated 61F admitted for eval of chest pain / SOB Recently evaluatred by Dr. Onesimo San @ [facility] for evaluation of abnormal lft's. He felt her liver dysfunction was likely secondary to her cardiac dysfunction. On exam: Quite tachypnic even when positioning herself to lay down on her bed for exam Abdomen: tenderness at trochar scars, particlulary the one most epigastric B/L pitting edema up to her thighs refused rectal exam Imp: Suspect liver dysfunction secondary to cardiac dysfunction Plan: Optimize cardiac function per cardiology
--- NOTE | 2016-07-11 20:19 | CONS ---
DATE OF CONSULTATION: 07/11/2016 GASTROINTESTINAL CONSULTATION REQUESTING PHYSICIAN: Lani Villegas M.D. HISTORY OF PRESENT ILLNESS: The patient is a 61-year-old female admitted through [facility] emergency room for evaluation of worsening shortness of breath. She does have history of chronic abdominal pain. She has abnormal liver chemistries, and was recently seen by Dr. Onesimo San, operator specialist communications at [facility]. The patient brought with her the note from Dr. San's office and his impression was that her liver function abnormalities were not secondary to an autoimmune process but rather from her cardiac dysfunction. While she was in the office, she was complaining of increasing shortness of breath, lower extremity swelling. He advised that she go to the emergency room and that she could use the [facility] emergency room or [facility] emergency room, and she chose [facility]. She has been evaluated by cardiology. She does have severe LV and RV dysfunction on echocardiogram as well as she does have severely dilated left ventricular, severely reduced left ventricular systolic function with global hypokinesis of the left ventricle, a moderately dilated right ventricle with moderate to severely reduced right ventricular systolic function, a moderately dilated right atrium, moderate mitral regurgitation as well as moderate to severe tricuspid regurgitation and elevated right ventricular systolic pressures. She is somewhat of a poor historian and she provides limited communication in terms of her symptomatology at times. She has been evaluated recently by my colleague Dr. Abilio Stevens, he had seen her postoperatively after she had undergone a laparoscopic cholecystectomy for acalculous cholecystitis with Dr. Hiram Chaudhry on May 05, 2016. Dr. Chaudhry had performed an intraoperative cholangiogram which suggested a distal CBD stricture. She was unable to have an MRCP as she had an AICD that precluded MRCP. CT scan of the abdomen and pelvis June 05 and she had a followup CT scan of the abdomen and pelvis at that time June 05 and special attention was paid to the common bile duct which was followed to the ampulla of Vater with no evidence of choledocholithiasis or ampullary mass, and at that time Dr. Stevens had cancelled the proposed ERCP and recommended following LFTs instead along with evaluation at [facility] with Dr. Onesimo San. She currently denies any abdominal pain. She does complain of shortness of breath. PAST MEDICAL HISTORY: Includes coronary artery disease status post CABG, cardiac stenting x2 with AICD placement, CHF, hypertension, hyperlipidemia, history of myocardial infarction, COPD, chronic abdominal pain, had PEG placed in October of 2015 after suffering vocal cord damage from EMS intubation and then with subsequent removal of G-tube, history of acalculous cholecystitis, nephrolithiasis, chronic low back pain, hypothyroidism, depression. PAST SURGICAL HISTORY: Includes CABG, cholecystectomy, colonoscopy, joint replacement, right total hip replacement, and cardiac stenting x2 as well as G-tube placement October of 2015. 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 MEDICATION: Prior to admission included Prinivil, Toprol XL, amlodipine, Synthroid, Lipitor, furosemide, Flomax, and potassium chloride. FAMILY HISTORY: Sister with history of diabetes, status post CABG in her 50s. Father had unknown cancer. Mother lived to age 94, and sister with an unknown cancer as well. No history of liver disease. REVIEW OF SYSTEMS: She does complain of shortness of breath which has been worse of late. She states it is better when she is wearing her nasal cannula oxygen. She does not use oxygen at home. She did complain of left sided chest pain, no fevers reported, no rectal bleeding, diarrhea, she does have chronic constipation, she does describe lower extremity swelling which has been worse of late. Remainder of GI review of systems as noted in the history of present illness. PHYSICAL EXAMINATION: General: The patient is initially found sitting up, when she went to lay down, she was extremely short of breath. I had to raise the head of her bed. Vital signs: Temperature 98.3, pulse 68, blood pressure 103/58. HEENT: Sclerae are anicteric. Neck: Supple. Cardiovascular: Heart regular rate and rhythm. She did have a 2/6 systolic ejection murmur heard best at the left sternal border. Lungs: Decreased breath sounds at the bases bilaterally although she is giving shallow inspirations. Abdomen: Healed trocar scars. Normoactive bowel sounds. Abdomen otherwise nondistended. No hepatosplenomegaly was appreciated. She did have tenderness both at the predominantly sites especially the one most epigastric that seemed to take the longest to heal and which there may have been an infection. Extremities: 3+ lower extremity pitting edema up to her thighs bilaterally. Rectal: Refused by the patient. LABORATORY EVALUATION: White blood count 7.4, hemoglobin 12, hematocrit 37.5, platelets of 195. INR 1.71, sodium 141, potassium 3.2, chloride 98, bicarbonate 31, BUN 30, creatinine 1.4, glucose 91, AST 64, ALT 40, alkaline phosphatase 148, total bilirubin 3.9, albumin . RADIOLOGY REPORTS: Abdominal ultrasound July 10, 2016, revealed no ascites, trace bilateral pleural effusions, she also had CT scans of the abdomen and pelvis in triple phase June 13, 2016, that revealed cardiomegaly, edematous changes throughout the subcutaneous tissue of the abdomen and pelvis, and trace ascites. IMPRESSION: A 61-year-old female with suspected liver dysfunction secondary to suspected cardiac dysfunction. PLAN: Optimize her cardiac function as feasible. Monitor her liver chemistries. Avoidance of alcohol. Also with chronic constipation and likely secondary to her cardiac dysfunction as well as her diuresis, recommend Miralax 17 g once daily. Other recommendations pending the above. I thank you for this consultative opportunity. SANDRA BELTRE DO [id number]
[2016-07-11] MEDS: ATORVASTATIN CA 20 MG TABLET (FP) PO SCH (21:47)
--- NOTE | 2016-07-12 03:33 | PN ---
Progress Note, Physician Chief Complaint: Pt A&Ox3; denies chest pain or dyspnea. - Current Medication List Current Medications: Active Medications Atorvastatin Calcium (Lipitor -) 20 mg PO HS [facility] Last Admin: 07/11/16 21:47 Dose: Not Given Enoxaparin Sodium (Lovenox -) 40 mg SQ DAILY [facility] Last Admin: 07/11/16 12:23 Dose: Not Given Furosemide (Lasix Injection -) 40 mg IVPB BIDLASIX [facility] Last Admin: 07/11/16 14:59 Dose: 40 mg Insulin Aspart (Novolog Vial Sliding Scale -) 1 vial SQ ACHS [facility] PRN Reason: Protocol Last Admin: 07/11/16 21:47 Dose: Not Given Lactulose (Cephulac (Oral Use)) 20 gm PO BID [facility] Levothyroxine Sodium (Synthroid -) 75 mcg PO DAILY@0700 [facility] Last Admin: 07/11/16 06:35 Dose: 75 mcg Lisinopril (Prinivil) 20 mg PO DAILY [facility] Last Admin: 07/11/16 12:23 Dose: Not Given Metoprolol Succinate (Toprol Xl -) 200 mg PO DAILY [facility] Last Admin: 07/11/16 12:23 Dose: Not Given Polyethylene Glycol (Miralax (For Daily Use) -) 17 gm PO DAILY [facility] Potassium Chloride (K-Dur -) 20 meq PO BID [facility] Last Admin: 07/11/16 21:46 Dose: Not Given Spironolactone (Aldactone -) 25 mg PO DAILY [facility] Last Admin: 07/11/16 12:23 Dose: 25 mg Tamsulosin HCl (Flomax -) 0.4 mg PO DAILY@0830 [facility] Last Admin: 07/11/16 12:24 Dose: Not Given - Objective Vital Signs: Vital Signs Temperature 98.0 F 07/11/16 22:00 Pulse Rate 68 07/11/16 22:00 Respiratory Rate 20 07/11/16 22:00 Blood Pressure 99/57 07/11/16 22:00 O2 Sat by Pulse Oximetry (%) 100 07/11/16 22:00 Constitutional: Yes: Calm Eyes: Yes: WNL HENT: Yes: WNL Neck: Yes: WNL Cardiovascular: Yes: S1, S2 (split) Respiratory: Yes: Regular Gastrointestinal: Yes: Soft ...Rectal Exam: Yes: Deferred Genitourinary: Yes: Anuria Breast(s): Yes: WNL Musculoskeletal: Yes: Joint Stiffness Edema: Yes Edema: LLE: 1+, RLE: 1+ Peripheral Pulses WNL: No Peripheral Pulses: Left Doralis Pedis: 1+, Right Dorsalis Pedis: 1+ Neurological: Yes: Alert, Oriented Psychiatric: Yes: Alert, Oriented, Other (anxiety/depression) Labs: CBC, BMP 07/10/16 06:45 07/11/16 05:35 INR, PTT INR 1.71 (0.82-1.09) H 07/09/16 13:00 Abnormal Lab Results 07/11/16 05:35 Potassium 3.2 L BUN 30 H D Creatinine 1.4 H D Calcium 8.2 L Total Bilirubin 3.9 H AST 64 H D Alkaline Phosphatase 148 H D Total Protein 5.7 L Albumin 2.7 L - ....Imaging Chest X-ray: Image Reviewed (mild pulmonary vascular congestion) Problem List - Problems (1) Dyspepsia Code(s): K30 - FUNCTIONAL DYSPEPSIA (2) Hyperbilirubinemia Code(s): E80.6 - OTHER DISORDERS OF BILIRUBIN METABOLISM (3) Hypertension Code(s): I10 - ESSENTIAL (PRIMARY) HYPERTENSION (4) Status post THR (total hip replacement) Code(s): Z96.649 - PRESENCE OF UNSPECIFIED ARTIFICIAL HIP JOINT (5) Tobacco use disorder Code(s): Z72.0 - TOBACCO USE (6) Arteriosclerotic heart disease (ASHD) Code(s): I25.10 - ATHSCL HEART DISEASE OF [place] CORONARY ARTERY W/O ANG PCTRS (7) Lower extremity edema Code(s): R60.0 - LOCALIZED EDEMA Qualifiers: Laterality: bilateral Qualified Code(s): R60.0 - Localized edema (8) Depression Code(s): F32.9 - MAJOR DEPRESSIVE DISORDER, SINGLE EPISODE, UNSPECIFIED (9) Diabetes Code(s): E11.9 - TYPE 2 DIABETES MELLITUS WITHOUT COMPLICATIONS (10) Hyperlipidemia Code(s): E78.5 - HYPERLIPIDEMIA, UNSPECIFIED (11) ICD (implantable cardioverter-defibrillator) in place Code(s): Z95.810 - PRESENCE OF AUTOMATIC (IMPLANTABLE) CARDIAC DEFIBRILLATOR (12) Systolic heart failure Assessment/Plan: Continue metoprolol, aldactone, lisinopril. No JVD. Decrease or discontinue furosemide (rising BUN/Cr). F/u BUN/Cr, daily weight, Is and Os, electrolytes (replete K+; f/u Mg). Code(s): I50.20 - UNSPECIFIED SYSTOLIC (CONGESTIVE) HEART FAILURE (13) Fatty liver Assessment/Plan: f/u by Dr. San noted; no plans for further hepatic w/u. Code(s): K76.0 - FATTY (CHANGE OF) LIVER, NOT ELSEWHERE CLASSIFIED
[2016-07-12] MEDS: FUROSEMIDE 40 MG/4 ML INJECTABLE VIAL IVPB SCH (06:02)
[2016-07-12] MEDS: LEVOTHYROXINE NA 75 MCG TABLET (FP) PO SCH (06:02)
[2016-07-12] MEDS: INSULIN SLIDING SCALE (NOVOLOG) 1 VIAL SQ SCH ×4 (06:02→21:49)
[2016-07-12] MEDS: TAMSULOSIN HCL 0.4 MG CAP.ER.24H (FP) PO SCH (08:12)
[2016-07-12] MEDS: SPIRONOLACTONE 25 MG TABLET (FP) PO SCH (09:59)
[2016-07-12] MEDS: METOPROLOL SUCCINATE 100 MG TAB.SR.24H (FP) PO SCH (09:59)
[2016-07-12] MEDS: LISINOPRIL 20 MG TABLET (FP) PO SCH (09:59)
[2016-07-12] MEDS: LACTULOSE 20 GM/30 ML UDC (FOR ORAL USE ONLY) PO SCH ×2 (10:03→21:49)
[2016-07-12] MEDS: POLYETHYLENE GLYCOL 3350 119 GM BTL PO SCH (10:03)
[2016-07-12] MEDS: POTASSIUM CHLORIDE TABS 20 MEQ TABLET.ER (FP) PO SCH ×2 (10:03→21:49)
[2016-07-12] MEDS: ENOXAPARIN NA (PORCINE) 40 MG/0.4 ML DISP.SYRIN SQ SCH (10:03)
[2016-07-12 11:36] LABS: CALCIUM 8.6 mg/dL (8.5-10.1); CREATININE 1.5 mg/dL (0.55-1.02)
--- NOTE | 2016-07-12 12:21 | PN ---
GI Progress Note Subjective: GI NOte: Denies abdominal pain. Tolerating solid diet. No LFTs today. Agree with my associate Dr. Shah that the most likely cause of Nida's wide LFT flluctuations is congestive hepatopathy superimposed on cirrhosis. Autoimmune hepatitis does not cause this LFT pattern. - Objective Vital Signs: Vital Signs Temperature 96.7 F L 07/12/16 10:00 Pulse Rate 72 07/12/16 10:00 Respiratory Rate 20 07/12/16 10:00 Blood Pressure 120/72 07/12/16 10:00 O2 Sat by Pulse Oximetry (%) 92 L 07/12/16 10:00 CBC,CMP WBC 7.4 K/mm3 (4.0-10.0) 07/10/16 06:45 Corrected WBC (auto) Cancelled 07/09/16 13:00 RBC 4.66 M/mm3 (3.60-5.2) 07/10/16 06:45 Hgb 12.0 GM/dL (10.7-15.3) 07/10/16 06:45 Hct 37.5 % (32.4-45.2) 07/10/16 06:45 MCV 80.5 fl (80-96) 07/10/16 06:45 MCHC 32.0 g/dl (32.0-36.0) 07/10/16 06:45 RDW 21.0 % (11.6-15.6) H 07/10/16 06:45 Plt Count 195 K/MM3 (134-434) 07/10/16 06:45 MPV 8.1 fl (7.5-11.1) 07/10/16 06:45 Neutrophils % 68.2 % (42.8-82.8) 07/10/16 06:45 Lymphocytes % 15.0 % (8-40) D 07/10/16 06:45 Monocytes % 16.6 % (3.8-10.2) H 07/10/16 06:45 Eosinophils % 0.0 % (0-4.5) 07/10/16 06:45 Basophils % 0.2 % (0-2.0) 07/10/16 06:45 Differential Comment Cancelled 07/09/16 13:00 Smudge Cells Cancelled 07/09/16 13:00 Platelet Estimate Adequate (NORMAL) 07/09/16 14:52 Platelet Comment Cancelled 07/09/16 13:00 Platelet Comment Cancelled 07/09/16 13:00 RBC Morphology Cancelled 07/09/16 13:00 Polychromasia 1+ 07/09/16 14:52 Poikilocytosis 1+ 07/09/16 14:52 Anisocytosis 2+ 07/09/16 14:52 Macrocytosis 1+ 07/09/16 14:52 Target Cells Rare 07/09/16 14:52 Ovalocytes 1+ 07/09/16 14:52 Morphology Comment Slide scanned 07/09/16 14:52 Sodium 140 mmol/L (136-145) 07/12/16 10:10 Potassium 3.4 mmol/L (3.5-5.1) L 07/12/16 10:10 Chloride 97 mmol/L (98-107) L 07/12/16 10:10 Carbon Dioxide 31 mmol/L (21-32) 07/12/16 10:10 Anion Gap 12 (8-16) 07/12/16 10:10 BUN 35 mg/dL (7-18) H 07/12/16 10:10 Creatinine 1.5 mg/dL (0.55-1.02) H 07/12/16 10:10 Creat Clearance w eGFR 37.98 (>60) 07/11/16 05:35 POC Glucometer 132 UNITS (()) 07/12/16 11:41 Random Glucose 121 mg/dL (74-106) H D 07/12/16 10:10 Lactic Acid 1.995 mmol/L (0.4-2.0) 07/09/16 15:40 Calcium 8.6 mg/dL (8.5-10.1) 07/12/16 10:10 Magnesium 1.8 mg/dL (1.8-2.4) 07/11/16 05:35 Total Bilirubin 3.9 mg/dL (0.2-1.0) H 07/11/16 05:35 AST 64 U/L (15-37) H D 07/11/16 05:35 ALT 40 U/L (12-78) 07/11/16 05:35 Alkaline Phosphatase 148 U/L (45-117) H D 07/11/16 05:35 Ammonia 52.96 umol/L (11-32) H 07/10/16 00:43 Creatine Kinase 698 IU/L (26-192) H D 07/09/16 13:00 CK-MB (CK-2) 12.693 ng/ml (0.5-3.6) H 07/09/16 13:00 Troponin I 0.22 ng/ml (0.00-0.05) H 07/10/16 00:43 B-Natriuretic Peptide Cancelled 07/09/16 13:00 Total Protein 5.7 g/dl (6.4-8.2) L 07/11/16 05:35 Albumin 2.7 g/dl (3.4-5.0) L 07/11/16 05:35 Triglycerides 67 mg/dL (35-160) 07/09/16 13:00 Cholesterol 78 mg/dL (50-200) 07/09/16 13:00 Total LDL Cholesterol 48 mg/dL (5-100) 07/09/16 13:00 HDL Cholesterol 33 mg/dL (40-60) L D 07/09/16 13:00 Constitutional: Calm Gastrointestinal Inspection: Yes: Distention ...Auscultate: Yes: Hypoactive Bowel Sounds ...Palpate: Yes: Soft, Other (nontender) ...Percussion: Yes: Tympanitic Labs: CBC, BMP 07/10/16 06:45 07/12/16 10:10 INR, PTT INR 1.71 (0.82-1.09) H 07/09/16 13:00 Laboratory Tests 06/03/16 06/05/16 06/05/16 06:15 05:35 05:35 Plt Count Total Bilirubin 3.4 H D 2.2 H 2.1 H Direct Bilirubin 1.5 H GGT 185 H AST 36 ALT 24 Alkaline Phosphatase 147 H 146 H 134 H Total Amylase 65 Lipase 43 L 06/14/16 07/09/16 07/10/16 07:00 13:00 06:45 Plt Count 195 Total Bilirubin 3.0 H D 3.1 H D Direct Bilirubin GGT AST ALT Alkaline Phosphatase 164 H D Total Amylase Lipase 07/10/16 07/11/16 06:45 05:35 Plt Count Total Bilirubin 4.0 H D 3.9 H Direct Bilirubin GGT AST 64 H D ALT 40 Alkaline Phosphatase 123 H D 148 H D Total Amylase Lipase Laboratory Tests 06/05/16 06/12/16 05:35 12:32 GAXIOLA Liver Fibrosis Y Liver Fibrosis Score 0.84 H Lipase 72 L Tumor Marker AFP 5.1 CA 19-9 Antigen 1 AMILCAR Homogeneous Pattern 1:1280 H Tiss Transglutamin IgG < 2 Hepatitis A IgM Ab Negative Hepatitis A Ab Total Positive H Hep Bs Antigen Negative Hep Bs Antibody Non reactive Hep B Core Total Ab Negative Hepatitis C Antibody 0.3 Assessment/Plan Congestive hepatopathy due to congestive heart failure superimposed on cirrhosis. She denies any h/o alcohol abuse. Her cirrhosis may reflect cardiac cirrhosis, GAXIOLA or chronic autoimmune hepatitis which at the cirrhotic stage may no longer be confirmed even with a liver biopsy. Problem List - Problems (1) Cirrhosis of liver Code(s): K74.60 - UNSPECIFIED CIRRHOSIS OF LIVER
--- NOTE | 2016-07-12 13:57 | PN ---
Teaching Attending Note Name of Resident: Salomón Rosa ATTENDING PHYSICIAN STATEMENT I saw and evaluated the patient. I reviewed the resident's note and discussed the case with the resident. I agree with the resident's findings and plan as documented. SUBJECTIVE: OBJECTIVE: ASSESSMENT AND PLAN:
--- NOTE | 2016-07-12 14:03 | PN ---
Teaching Attending Note Name of Resident: Salomón Rosa ATTENDING PHYSICIAN STATEMENT I saw and evaluated the patient. I reviewed the resident's note and discussed the case with the resident. I agree with the resident's findings and plan as documented. SUBJECTIVE: No acute events overnight . Shortness of breath improved. OBJECTIVE: Vital Signs - 24 hr 07/11/16 07/12/16 07/12/16 22:00 06:00 10:00 Temperature 98.0 F 97.8 F 96.7 F L Pulse Rate 68 64 72 Respiratory 20 20 18 Rate Blood Pressure 99/57 96/55 120/72 O2 Sat by Pulse 100 92 L Oximetry (%) GENERAL: The patient is awake, alert, and fully oriented, in no acute distress. HEAD: Normal with no signs of trauma. EYES: PERRL, extraocular movements intact, sclera anicteric, conjunctiva clear. No ptosis. ENT: Ears normal, nares patent, oropharynx clear without exudates, moist mucous membranes. NECK: Trachea midline, full range of motion, supple. LUNGS: Breath sounds equal, clear to auscultation bilaterally, no wheezes, no crackles, no accessory muscle use. HEART: Regular rate and rhythm, S1, S2 without murmur, rub or gallop. ABDOMEN: Soft, nontender, nondistended, normoactive bowel sounds, no guarding, no rebound, no hepatosplenomegaly, no masses. EXTREMITIES: 2+ pulses, warm, well-perfused, 2 plus edema. NEUROLOGICAL: Cranial nerves II through XII grossly intact. Normal speech, gait not observed. PSYCH: Normal mood, normal affect. SKIN: Warm, dry, normal turgor, no rashes or lesions noted CBC, BMP 07/10/16 06:45 07/12/16 10:10 Echo EF 22% ASSESSMENT AND PLAN: 1. Acute exacerbation of chronic systolic heart failure,ischemic cardiomyopathy - Improving. - will change Lasix to PO - continue Aldactone/Lisinopril/Metoprolol - O2 walking test , evaluate for hypoxia 2. Acute renal insufficiency- pre renal , likely secondary to diuretics - change to PO lasix - repeat BMP in am 3. Elevated LFT- chronic, questionable history of autoimmune hepatitis, possibly just liver congestion, elevated Ammonia levels - was started on lactulose -repeat LFT in am 4. Hypokalemia - secondary to lasix - supplement PO 5. DVT PPX - Lovenox 6.D/C planning Current Medications Generic Name Dose Route Start Last Admin Trade Name Kamilah PRN Reason Stop Dose Admin Atorvastatin Calcium 20 mg 07/09/16 22:00 07/11/16 21:47 Lipitor - PO Not Given HS [facility] Enoxaparin Sodium 40 mg 07/10/16 10:00 07/12/16 10:03 Lovenox - SQ Not Given DAILY [facility] Insulin Aspart 1 vial 07/10/16 07:00 07/12/16 11:42 Novolog Vial Sliding Scale - SQ Not Given ACHS [facility] Protocol Lactulose 20 gm 07/12/16 10:00 07/12/16 10:03 Cephulac (Oral Use) PO Not Given BID [facility] Levothyroxine Sodium 75 mcg 07/10/16 07:00 07/12/16 06:02 Synthroid - PO 75 mcg DAILY@0700 [facility] Administration Lisinopril 20 mg 07/10/16 10:00 07/12/16 09:59 Prinivil PO 20 mg DAILY [facility] Administration Metoprolol Succinate 200 mg 07/10/16 10:00 07/12/16 09:59 Toprol Xl - PO 200 mg DAILY [facility] Administration Polyethylene Glycol 17 gm 07/12/16 10:00 07/12/16 10:03 Miralax (For Daily Use) - PO Not Given DAILY [facility] Potassium Chloride 20 meq 07/10/16 22:00 07/12/16 10:03 K-Dur - PO Not Given BID [facility] Spironolactone 25 mg 07/10/16 10:00 07/12/16 09:59 Aldactone - PO 25 mg DAILY [facility] Administration Tamsulosin HCl 0.4 mg 07/10/16 08:30 07/12/16 08:12 Flomax - PO Not Given DAILY@0830 [facility]
--- NOTE | 2016-07-12 14:29 | PN ---
Progress Note, Physician Chief Complaint: Pt A&Ox3; denies chest pain or dyspnea. Sitting up at bedside. History of Present Illness: 61 year old black female presented to the ED with the chief complaints of left sided chest pain since 4am this morning. A/c to the patient, chest pain started suddenly, stabbing in nature, 10/10 in intensity, radiating towards her left neck, associated with SOB even at rest. Gives h/o orthopnea, uses 2pillow, no h/ o PND. Also reports to have cough, producing yellowish sputum, no blood noticed. No fever, chills, rigors or sweating. Patient has abdominal pain in the epigastric area, hurts more at the open wound from s/p lap naomi, radiating towards the suprapubic area. No nausea or vomiting. Has had B/L swelling which seems to be progressing to worse, noticed redness over the left knee area, pain of bilateral legs limiting her daily activities. Bowel/Bladder habit normal. Sleep disturbed. Appetite decreased. Lives with her sister. Had her pacemaker checked last Sunday and it was normal. Hx fatty liver. PAST MEDICAL HISTORY: severe systolic CHF, CO with stents x2, defibrillator/ pacemaker and CABG, HTN, HLD, hypercholesterolemia, DM, depression, CAD, hypothyroidism, kidney stone and peripheral neuropathy PAST SURGICAL HISTORY: As mentioned above Social History: Smoking: Active smoker, Smokes 3 cigarettes/day x 35 years Alcohol: Doesn't drink alcohol Drugs: No illicit drug use - Current Medication List Current Medications: Active Medications Atorvastatin Calcium (Lipitor -) 20 mg PO HS [facility] Last Admin: 07/11/16 21:47 Dose: Not Given Enoxaparin Sodium (Lovenox -) 40 mg SQ DAILY [facility] Last Admin: 07/12/16 10:03 Dose: Not Given Insulin Aspart (Novolog Vial Sliding Scale -) 1 vial SQ ACHS [facility] PRN Reason: Protocol Last Admin: 07/12/16 11:42 Dose: Not Given Lactulose (Cephulac (Oral Use)) 20 gm PO BID [facility] Last Admin: 07/12/16 10:03 Dose: Not Given Levothyroxine Sodium (Synthroid -) 75 mcg PO DAILY@0700 [facility] Last Admin: 07/12/16 06:02 Dose: 75 mcg Lisinopril (Prinivil) 20 mg PO DAILY [facility] Last Admin: 07/12/16 09:59 Dose: 20 mg Metoprolol Succinate (Toprol Xl -) 200 mg PO DAILY [facility] Last Admin: 07/12/16 09:59 Dose: 200 mg Polyethylene Glycol (Miralax (For Daily Use) -) 17 gm PO DAILY [facility] Last Admin: 07/12/16 10:03 Dose: Not Given Potassium Chloride (K-Dur -) 20 meq PO BID [facility] Last Admin: 07/12/16 10:03 Dose: Not Given Spironolactone (Aldactone -) 25 mg PO DAILY [facility] Last Admin: 07/12/16 09:59 Dose: 25 mg Tamsulosin HCl (Flomax -) 0.4 mg PO DAILY@0830 [facility] Last Admin: 07/12/16 08:12 Dose: Not Given - Objective Vital Signs: Vital Signs Temperature 96.7 F L 07/12/16 10:00 Pulse Rate 66 07/12/16 14:01 Respiratory Rate 20 07/12/16 14:01 Blood Pressure 99/57 07/12/16 14:01 O2 Sat by Pulse Oximetry (%) 97 07/12/16 13:50 Constitutional: Yes: Calm Eyes: Yes: WNL HENT: Yes: WNL Neck: Yes: WNL Cardiovascular: Yes: Pulse Irregular Respiratory: Yes: Regular Gastrointestinal: Yes: Soft ...Rectal Exam: Yes: Deferred Genitourinary: No: Anuria Breast(s): Yes: WNL Musculoskeletal: Yes: Joint Stiffness, Joint Swelling Extremities: Yes: Cool Edema: Yes Edema: LLE: 1+, RLE: 1+ Peripheral Pulses WNL: No Peripheral Pulses: Left Doralis Pedis: 1+, Right Dorsalis Pedis: 1+ Integumentary: Yes: Other (left inner knee: abrasion (Pt shaved there)) Psychiatric: Yes: Alert, Oriented Labs: CBC, BMP 07/10/16 06:45 07/12/16 10:10 INR, PTT INR 1.71 (0.82-1.09) H 07/09/16 13:00 Problem List - Problems (1) Dyspepsia Code(s): K30 - FUNCTIONAL DYSPEPSIA (2) Hyperbilirubinemia Assessment/Plan: fatty liver (see workup done at [facility]); no further liver workup planned. Code(s): E80.6 - OTHER DISORDERS OF BILIRUBIN METABOLISM (3) Hypertension Code(s): I10 - ESSENTIAL (PRIMARY) HYPERTENSION (4) Status post THR (total hip replacement) Code(s): Z96.649 - PRESENCE OF UNSPECIFIED ARTIFICIAL HIP JOINT (5) Tobacco use disorder Assessment/Plan: Smoking cessation was discussed again. Code(s): Z72.0 - TOBACCO USE (6) Arteriosclerotic heart disease (ASHD) Code(s): I25.10 - ATHSCL HEART DISEASE OF [place] CORONARY ARTERY W/O ANG PCTRS (7) Lower extremity edema Assessment/Plan: furosemide prn. On spironolactone. Code(s): R60.0 - LOCALIZED EDEMA Qualifiers: Laterality: bilateral Qualified Code(s): R60.0 - Localized edema (8) Depression Code(s): F32.9 - MAJOR DEPRESSIVE DISORDER, SINGLE EPISODE, UNSPECIFIED (9) Diabetes Code(s): E11.9 - TYPE 2 DIABETES MELLITUS WITHOUT COMPLICATIONS (10) Hyperlipidemia Code(s): E78.5 - HYPERLIPIDEMIA, UNSPECIFIED (11) ICD (implantable cardioverter-defibrillator) in place Assessment/Plan: ICD interrogation in office within the past 2 weeks: no events; few brief episodes of NSVT Code(s): Z95.810 - PRESENCE OF AUTOMATIC (IMPLANTABLE) CARDIAC DEFIBRILLATOR (12) Systolic heart failure Assessment/Plan: Continue metoprolol, aldactone, lisinopril. No JVD. Decrease or discontinue furosemide (rising BUN/Cr). F/u BUN/Cr, daily weight, Is and Os, electrolytes (replete K+; f/u Mg). Code(s): I50.20 - UNSPECIFIED SYSTOLIC (CONGESTIVE) HEART FAILURE (13) Fatty liver Assessment/Plan: f/u by Dr. San noted; no plans for further hepatic w/u. Code(s): K76.0 - FATTY (CHANGE OF) LIVER, NOT ELSEWHERE CLASSIFIED
--- NOTE | 2016-07-12 14:33 | PN ---
Physical Exam: SUBJECTIVE: Patient seen and examined. feels like she needs oxygen, requests to shower. she continues to have LE edema and abdominal pain. denies chest pain, sob, difficulty breathing, dysuria. OBJECTIVE: Vital Signs Period Temp Pulse Resp BP Sys/Santoro Pulse Ox Last 24 Hr 96.7 F-98.0 F 64-72 18-20 96-120/55-72 92-100 GENERAL: The patient is awake, alert, and fully oriented, in no acute distress. EYES: PERRL, extraocular movements intact, sclera anicteric LUNGS: CTAB, on nasal cannula 2lpm, no wheezing, no crackles. no accessory muscle use. HEART: Regular rate and rhythm, S1, S2 without murmur, rub or gallop. ABDOMEN: firm from umbilicus down, diffusely tender, distended, normoactive bowel sounds, healing ulcer in epigastrium with surrounding tenderness, skin dry in inguinal area. EXTREMITIES: LE: b/l 1+ pulses, warm, well-perfused. erythema, 3+ edema upto umbilicus, ttp throughout legs, excoriations on left medial knee - closed without bleeding, small laceration on right mid-villagran without discharge. NEUROLOGICAL:Normal speech, gait steady with cane. Laboratory Results - last 24 hr 07/11/16 07/11/16 07/12/16 17:25 21:45 05:07 Sodium Potassium Chloride Carbon Dioxide Anion Gap BUN Creatinine POC Glucometer 99 121 70 Random Glucose Calcium 07/12/16 07/12/16 10:10 11:41 Sodium 140 Potassium 3.4 L Chloride 97 L Carbon Dioxide 31 Anion Gap 12 BUN 35 H Creatinine 1.5 H POC Glucometer 132 Random Glucose 121 H D Calcium 8.6 Active Medications Active Medications Atorvastatin Calcium (Lipitor -) 20 mg PO HS [facility] Last Admin: 07/11/16 21:47 Dose: Not Given Enoxaparin Sodium (Lovenox -) 40 mg SQ DAILY [facility] Last Admin: 07/12/16 10:03 Dose: Not Given Furosemide (Lasix -) 40 mg PO DAILY [facility] Insulin Aspart (Novolog Vial Sliding Scale -) 1 vial SQ ACHS [facility] PRN Reason: Protocol Last Admin: 07/12/16 11:42 Dose: Not Given Lactulose (Cephulac (Oral Use)) 20 gm PO BID [facility] Last Admin: 07/12/16 10:03 Dose: Not Given Levothyroxine Sodium (Synthroid -) 75 mcg PO DAILY@0700 [facility] Last Admin: 07/12/16 06:02 Dose: 75 mcg Lisinopril (Prinivil) 20 mg PO DAILY [facility] Last Admin: 07/12/16 09:59 Dose: 20 mg Metoprolol Succinate (Toprol Xl -) 200 mg PO DAILY [facility] Last Admin: 07/12/16 09:59 Dose: 200 mg Polyethylene Glycol (Miralax (For Daily Use) -) 17 gm PO DAILY [facility] Last Admin: 07/12/16 10:03 Dose: Not Given Potassium Chloride (K-Dur -) 20 meq PO BID [facility] Last Admin: 07/12/16 10:03 Dose: Not Given Spironolactone (Aldactone -) 25 mg PO DAILY [facility] Last Admin: 07/12/16 09:59 Dose: 25 mg Tamsulosin HCl (Flomax -) 0.4 mg PO DAILY@0830 [facility] Last Admin: 07/12/16 08:12 Dose: Not Given ASSESSMENT/PLAN: 61 yr old woman with combined diastolic/systolic CHF, HTN, HLD, hypothyroidism, s/p pacemaker/defibrillator, admitted for anasarca secondary to acute on chronic CHF. - patient has been refusing medications. - discussed with patient the importance of medication adherence, states understanding. - elevated ammonia - lactulose 20mg, patient has refused lactulose, mentation is alert, oriented, will hold off on lactulose for now. #Acute on chronic exacerbation of CHF with anasarca - aldactone 25mg po daily - cardiology consult Dr. Garcia; given rising BUN/Cr will change lasix to 40mg po daily from IV BID - monitor I&O, daily weights: weight has been increasing, pt is using a bedside commode, unclear if accurate documentation of I&O. #hypokalemia - likely from diuretic use - 20meq po daily bid #CAD - atorvastatin 20 mg po qhs #HTN - pt is bradycardic HR at times in 49, she is paced and has a hx of SVT's will continue toprol with close monitoring. - toprol xl 200 mg po daily - no events on monitor #Hypothyroidism - 75 mcg qdaily #Smoking cessation - declined nicotine patch #DM - no oral hypoglycemics, NISS DvT px: lovenox 40mg daily diet: low sodium Visit type - Emergency Visit Emergency Visit: No - New Patient This patient is new to me today: No - Critical Care Critical Care patient: No
[2016-07-12] MEDS: ATORVASTATIN CA 20 MG TABLET (FP) PO SCH (21:49)
[2016-07-13] MEDS: INSULIN SLIDING SCALE (NOVOLOG) 1 VIAL SQ SCH ×3 (06:21→16:30)
[2016-07-13] MEDS: LEVOTHYROXINE NA 75 MCG TABLET (FP) PO SCH (06:22)
[2016-07-13 08:11] LABS: ALBUMIN 2.8 g/dl (3.4-5.0)
[2016-07-13 08:14] LABS: BILIRUBIN,DIRECT 2.7 mg/dL (0.0-0.2); BILIRUBIN,TOTAL 3.3 mg/dL (0.2-1.0); TOT PROT 6.3 g/dl (6.4-8.2)
[2016-07-13] MEDS: POTASSIUM CHLORIDE TABS 20 MEQ TABLET.ER (FP) PO SCH ×2 (09:25→21:14)
[2016-07-13] MEDS: FUROSEMIDE 40 MG TABLET (FP) PO SCH (09:25)
[2016-07-13] MEDS: SPIRONOLACTONE 25 MG TABLET (FP) PO SCH (09:25)
[2016-07-13] MEDS: TAMSULOSIN HCL 0.4 MG CAP.ER.24H (FP) PO SCH (09:25)
[2016-07-13] MEDS: LISINOPRIL 20 MG TABLET (FP) PO SCH (09:25)
[2016-07-13] MEDS: METOPROLOL SUCCINATE 100 MG TAB.SR.24H (FP) PO SCH (09:25)
[2016-07-13] MEDS: LACTULOSE 20 GM/30 ML UDC (FOR ORAL USE ONLY) PO SCH ×2 (09:32→21:14)
[2016-07-13] MEDS: ENOXAPARIN NA (PORCINE) 40 MG/0.4 ML DISP.SYRIN SQ SCH (09:33)
[2016-07-13] MEDS: POLYETHYLENE GLYCOL 3350 119 GM BTL PO SCH (09:33)
--- NOTE | 2016-07-13 14:45 | PN ---
Physical Exam: SUBJECTIVE: Patient seen and examined. feels worse today, feels that her abdomen is bigger and it hurts more. OBJECTIVE: Vital Signs Period Temp Pulse Resp BP Sys/Santoro Pulse Ox Last 24 Hr 97.5 F-98.4 F 62-73 16-20 99-111/62-76 93-95 GENERAL: The patient is awake, alert, and fully oriented, in no acute distress. LUNGS: Breath sounds equal, clear to auscultation bilaterally, no wheezes, no crackles, no accessory muscle use. HEART: Regular rate and rhythm, S1, S2 without murmur, rub or gallop. ABDOMEN: Soft, nontender, nondistended, normoactive bowel sounds, no guarding, no rebound, no hepatosplenomegaly, no masses. EXTREMITIES: LE: b/l 1+ pulses, warm, well-perfused. erythema, 3+ edema upto umbilicus, ttp throughout legs, left medial knee with mild skin peeling- closed without bleeding Laboratory Results - last 24 hr 07/12/16 07/13/16 07/13/16 17:07 05:35 05:51 POC Glucometer 90 80 Total Bilirubin 3.3 H Direct Bilirubin 2.7 H GGT 229 H D AST 69 H ALT 48 Alkaline Phosphatase 171 H Total Protein 6.3 L Albumin 2.8 L 07/13/16 11:07 POC Glucometer 135 Total Bilirubin Direct Bilirubin GGT AST ALT Alkaline Phosphatase Total Protein Albumin Active Medications Atorvastatin Calcium (Lipitor -) 20 mg PO HS [facility] Last Admin: 07/12/16 21:49 Dose: 20 mg Enoxaparin Sodium (Lovenox -) 40 mg SQ DAILY [facility] Last Admin: 07/13/16 09:33 Dose: Not Given Furosemide (Lasix -) 40 mg PO DAILY [facility] Last Admin: 07/13/16 09:25 Dose: 40 mg Insulin Aspart (Novolog Vial Sliding Scale -) 1 vial SQ ACHS [facility] PRN Reason: Protocol Last Admin: 07/13/16 11:12 Dose: Not Given Lactulose (Cephulac (Oral Use)) 20 gm PO BID [facility] Last Admin: 07/13/16 09:32 Dose: Not Given Levothyroxine Sodium (Synthroid -) 75 mcg PO DAILY@0700 [facility] Last Admin: 07/13/16 06:22 Dose: 75 mcg Lisinopril (Prinivil) 20 mg PO DAILY [facility] Last Admin: 07/13/16 09:25 Dose: 20 mg Metoprolol Succinate (Toprol Xl -) 200 mg PO DAILY [facility] Last Admin: 07/13/16 09:25 Dose: 200 mg Polyethylene Glycol (Miralax (For Daily Use) -) 17 gm PO DAILY [facility] Last Admin: 07/13/16 09:33 Dose: Not Given Potassium Chloride (K-Dur -) 20 meq PO BID [facility] Last Admin: 07/13/16 09:25 Dose: 20 meq Spironolactone (Aldactone -) 25 mg PO DAILY [facility] Last Admin: 07/13/16 09:25 Dose: 25 mg Tamsulosin HCl (Flomax -) 0.4 mg PO DAILY@0830 [facility] Last Admin: 07/13/16 09:25 Dose: 0.4 mg ASSESSMENT/PLAN: 61 yr old woman with combined diastolic/systolic CHF, HTN, HLD, hypothyroidism, s/p pacemaker/defibrillator, admitted for anasarca secondary to acute on chronic CHF. - pre-post testing, no desturation; sat of 93% on RA with walking, - patient does not require oxygen. #Acute on chronic exacerbation of CHF with anasarca - lasix 40mg po daily - aldactone 25mg po daily - cardiology consult Dr. Garcia - monitor I&O, daily weights: weight has been increasing, pt is using a bedside commode, unclear if accurate documentation of I&O. #Acute kidney injury - likely from diuretic use - elevated cr and elevated BUN - stop IV lasix #hypokalemia - likely from diuretic use - 20meq po daily bid #CAD - atorvastatin 20 mg po qhs #HTN - controlled - toprol xl 200 mg po daily #Hypothyroidism - 75 mcg qdaily #Smoking cessation - declined nicotine patch - will provide smoking cessation upon discharge #DM - no oral hypoglycemics, NISS - BGM all <150, no coverage required. last HbA1c 03/2016 5.7 - stop BGM, NISS DvT px: lovenox 40mg daily diet: low sodium Visit type Visit type - Emergency Visit Emergency Visit: No - New Patient This patient is new to me today: No - Critical Care Critical Care patient: No - Discharge Referral Referred to [facility] Med P.C.: No
--- NOTE | 2016-07-13 15:08 | PN ---
Teaching Attending Note Name of Resident: Salomón Rosa ATTENDING PHYSICIAN STATEMENT I saw and evaluated the patient. I reviewed the resident's note and discussed the case with the resident. I agree with the resident's findings and plan as documented. SUBJECTIVE: c/o SOB, no significant improvement OBJECTIVE: Vital Signs - 24 hr 07/12/16 07/12/16 07/12/16 18:00 20:14 22:00 Temperature 97.7 F 97.5 F L Pulse Rate 66 67 Respiratory 19 20 Rate Blood Pressure 99/70 106/69 O2 Sat by Pulse 95 Oximetry (%) 07/13/16 07/13/16 07/13/16 02:00 06:00 09:01 Temperature 98.4 F 98.2 F Pulse Rate 66 66 62 Respiratory 20 20 16 Rate Blood Pressure 111/76 109/70 108/62 O2 Sat by Pulse Oximetry (%) 07/13/16 07/13/16 10:00 13:21 Temperature Pulse Rate 73 Respiratory Rate Blood Pressure O2 Sat by Pulse 95 93 L Oximetry (%) ENERAL: The patient is awake, alert, and fully oriented, in no acute distress. HEAD: Normal with no signs of trauma. EYES: PERRL, extraocular movements intact, sclera anicteric, conjunctiva clear. No ptosis. ENT: Ears normal, nares patent, oropharynx clear without exudates, moist mucous membranes. NECK: Trachea midline, full range of motion, supple. LUNGS: Breath sounds equal, clear to auscultation bilaterally, no wheezes, no crackles, no accessory muscle use. HEART: Regular rate and rhythm, S1, S2 without murmur, rub or gallop. ABDOMEN: Soft, nontender, nondistended, normoactive bowel sounds, no guarding, no rebound, no hepatosplenomegaly, no masses. EXTREMITIES: 2+ pulses, warm, well-perfused, 2 plus edema. NEUROLOGICAL: Cranial nerves II through XII grossly intact. Normal speech, gait not observed. PSYCH: Normal mood, normal affect. SKIN: Warm, dry, normal turgor, no rashes or lesions noted CBC, BMP 07/10/16 06:45 07/12/16 10:10 ASSESSMENT AND PLAN: 1. Acute exacerbation of chronic systolic heart failure,ischemic cardiomyopathy -positive fluid balance - Lasix PO - continue Aldactone/Lisinopril/Metoprolol - O2 walking test , evaluate for hypoxia 2. Acute renal insufficiency- pre renal , likely secondary to diuretics- improved 3. Elevated LFT- chronic, questionable history of autoimmune hepatitis, possibly just liver congestion, elevated Ammonia levels - c/w lactulose 4. Hypokalemia - secondary to lasix - supplement PO 5. DVT PPX - Lovenox 6.D/C planning
[2016-07-13] MEDS: ATORVASTATIN CA 20 MG TABLET (FP) PO SCH (21:14)
[2016-07-14] MEDS: LEVOTHYROXINE NA 75 MCG TABLET (FP) PO SCH (06:22)
[2016-07-14 08:22] LABS: CREATININE 1.4 mg/dL (0.55-1.02)
[2016-07-14] MEDS ORDERED: diphenhydrAMINE HCL 25 MG CAPSULE (FP) PO ONE (08:45)
[2016-07-14] MEDS: TAMSULOSIN HCL 0.4 MG CAP.ER.24H (FP) PO SCH (08:49)
[2016-07-14 09:31] LABS: BILIRUBIN,DIRECT 3.1 mg/dL (0.0-0.2)
[2016-07-14] MEDS: POTASSIUM CHLORIDE TABS 20 MEQ TABLET.ER (FP) PO SCH (11:08)
[2016-07-14] MEDS: LACTULOSE 20 GM/30 ML UDC (FOR ORAL USE ONLY) PO SCH ×2 (11:08→11:13)
[2016-07-14] MEDS: SPIRONOLACTONE 25 MG TABLET (FP) PO SCH (11:08)
[2016-07-14] MEDS: METOPROLOL SUCCINATE 100 MG TAB.SR.24H (FP) PO SCH (11:09)
[2016-07-14] MEDS: FUROSEMIDE 40 MG TABLET (FP) PO SCH (11:09)
[2016-07-14] MEDS: LISINOPRIL 20 MG TABLET (FP) PO SCH (11:09)
[2016-07-14] MEDS: ENOXAPARIN NA (PORCINE) 40 MG/0.4 ML DISP.SYRIN SQ SCH (11:11)
[2016-07-14] MEDS: POLYETHYLENE GLYCOL 3350 119 GM BTL PO SCH (11:13)
[2016-07-14] MEDS ORDERED: METOPROLOL SUCCINATE 100 MG TAB.SR.24H (FP) PO ONE (11:45)
[2016-07-14] MEDS ORDERED: FUROSEMIDE 40 MG TABLET (FP) PO ONE (11:45)
--- NOTE | 2016-07-14 16:32 | PN ---
Teaching Attending Note Name of Resident: Salomón Rosa ATTENDING PHYSICIAN STATEMENT I saw and evaluated the patient. I reviewed the resident's note and discussed the case with the resident. I agree with the resident's findings and plan as documented. SUBJECTIVE:feels the same , SOB not improved OBJECTIVE: Vital Signs Temperature 97.4 F L 07/14/16 14:25 Pulse Rate 67 07/14/16 15:48 Respiratory Rate 20 07/14/16 15:48 Blood Pressure 94/64 07/14/16 15:48 O2 Sat by Pulse Oximetry (%) 95 07/14/16 11:15 CBC, BMP 07/10/16 06:45 07/14/16 06:30 Ext b/l LE edema no wheezing no rales ASSESSMENT AND PLAN: 1. Acute exacerbation of chronic systolic heart failure,ischemic cardiomyopathy O2 walk - O2 sat 93% 2. Acute renal insufficiency- pre renal , likely secondary to diuretics- improved 3. Elevated LFT- chronic, questionable history of autoimmune hepatitis, possibly just liver congestion, elevated Ammonia levels - c/w lactulose 4. Hypokalemia - resolved 5. DVT PPX - Lovenox D/C home on po lasix f/u with cardiology
--- NOTE | 2016-07-14 16:46 | PN ---
Progress Note, Physician Chief Complaint: Pt A&Ox3; denies chest pain or dyspnea. Sitting up at bedside; later lying down flat, resting, without dyspnea. History of Present Illness: 61 year old black female presented to the ED with the chief complaints of left sided chest pain since 4am this morning. A/c to the patient, chest pain started suddenly, stabbing in nature, 10/10 in intensity, radiating towards her left neck, associated with SOB even at rest. Gives h/o orthopnea, uses 2pillow, no h/ o PND. Also reports to have cough, producing yellowish sputum, no blood noticed. No fever, chills, rigors or sweating. Patient has abdominal pain in the epigastric area, hurts more at the open wound from s/p lap naomi, radiating towards the suprapubic area. No nausea or vomiting. Has had B/L swelling which seems to be progressing to worse, noticed redness over the left knee area, pain of bilateral legs limiting her daily activities. Bowel/Bladder habit normal. Sleep disturbed. Appetite decreased. Lives with her sister. Had her pacemaker checked last Sunday and it was normal. Hx fatty liver. PAST MEDICAL HISTORY: severe systolic CHF, MD with stents x2, defibrillator/ pacemaker and CABG, HTN, HLD, hypercholesterolemia, DM, depression, CAD, hypothyroidism, kidney stone and peripheral neuropathy PAST SURGICAL HISTORY: As mentioned above Social History: Smoking: Active smoker, Smokes 3 cigarettes/day x 35 years Alcohol: Doesn't drink alcohol Drugs: No illicit drug use - Current Medication List Current Medications: Active Medications Atorvastatin Calcium (Lipitor -) 20 mg PO HS [facility] Last Admin: 07/13/16 21:14 Dose: 20 mg Enoxaparin Sodium (Lovenox -) 40 mg SQ DAILY [facility] Last Admin: 07/14/16 11:11 Dose: Not Given Furosemide (Lasix -) 40 mg PO DAILY [facility] Last Admin: 07/14/16 11:09 Dose: Not Given Lactulose (Cephulac (Oral Use)) 20 gm PO BID [facility] Last Admin: 07/14/16 11:13 Dose: Not Given Levothyroxine Sodium (Synthroid -) 75 mcg PO DAILY@0700 [facility] Last Admin: 07/14/16 06:22 Dose: Not Given Lisinopril (Prinivil) 20 mg PO DAILY [facility] Last Admin: 07/14/16 11:09 Dose: Not Given Metoprolol Succinate (Toprol Xl -) 200 mg PO DAILY [facility] Last Admin: 07/14/16 11:09 Dose: Not Given Polyethylene Glycol (Miralax (For Daily Use) -) 17 gm PO DAILY [facility] Last Admin: 07/14/16 11:13 Dose: Not Given Potassium Chloride (K-Dur -) 20 meq PO BID [facility] Last Admin: 07/14/16 11:08 Dose: 20 meq Spironolactone (Aldactone -) 25 mg PO DAILY [facility] Last Admin: 07/14/16 11:08 Dose: Not Given Tamsulosin HCl (Flomax -) 0.4 mg PO DAILY@0830 [facility] Last Admin: 07/14/16 08:49 Dose: 0.4 mg - Objective Vital Signs: Vital Signs Temperature 97.4 F L 07/14/16 14:25 Pulse Rate 67 07/14/16 15:48 Respiratory Rate 20 07/14/16 15:48 Blood Pressure 94/64 07/14/16 15:48 O2 Sat by Pulse Oximetry (%) 95 07/14/16 11:15 Constitutional: Yes: Calm Eyes: Yes: WNL HENT: Yes: WNL Neck: Yes: WNL Cardiovascular: Yes: Pulse Irregular Respiratory: Yes: Regular Gastrointestinal: Yes: Soft. No: Tenderness ...Rectal Exam: Yes: Deferred Genitourinary: No: Anuria Edema: Yes Edema: LLE: 1+, RLE: 1+ Peripheral Pulses WNL: No Peripheral Pulses: Left Doralis Pedis: 1+, Right Dorsalis Pedis: 1+ Labs: CBC, BMP 07/10/16 06:45 07/14/16 06:30 INR, PTT INR 1.71 (0.82-1.09) H 07/09/16 13:00 Problem List - Problems (1) Dyspepsia Code(s): K30 - FUNCTIONAL DYSPEPSIA (2) Hyperbilirubinemia Assessment/Plan: fatty liver (see workup done at [facility]); no further liver workup planned. Code(s): E80.6 - OTHER DISORDERS OF BILIRUBIN METABOLISM (3) Hypertension Code(s): I10 - ESSENTIAL (PRIMARY) HYPERTENSION (4) Status post THR (total hip replacement) Code(s): Z96.649 - PRESENCE OF UNSPECIFIED ARTIFICIAL HIP JOINT (5) Tobacco use disorder Assessment/Plan: Smoking cessation was discussed again. Code(s): Z72.0 - TOBACCO USE (6) Arteriosclerotic heart disease (ASHD) Code(s): I25.10 - ATHSCL HEART DISEASE OF [place] CORONARY ARTERY W/O ANG PCTRS (7) Lower extremity edema Code(s): R60.0 - LOCALIZED EDEMA Qualifiers: Laterality: bilateral Qualified Code(s): R60.0 - Localized edema (8) Depression Code(s): F32.9 - MAJOR DEPRESSIVE DISORDER, SINGLE EPISODE, UNSPECIFIED (9) Diabetes Code(s): E11.9 - TYPE 2 DIABETES MELLITUS WITHOUT COMPLICATIONS (10) Hyperlipidemia Code(s): E78.5 - HYPERLIPIDEMIA, UNSPECIFIED (11) ICD (implantable cardioverter-defibrillator) in place Assessment/Plan: ICD interrogation in office within the past 2 weeks: no events; few brief episodes of NSVT Code(s): Z95.810 - PRESENCE OF AUTOMATIC (IMPLANTABLE) CARDIAC DEFIBRILLATOR (12) Systolic heart failure Assessment/Plan: Continue metoprolol, aldactone, lisinopril (doses adjusted because of low- normal BP).Important to try to continue these three medications because of survival benefit with severe systolic diysfunction.(Pt is not on amlodipine). No JVD. Furosemide 40 mg prn; pt is aware of signs/symptoms to look for as outpt to adjust the medication; eg, she tends not to take it when she goes out for shopping or doctor's visits (once or twice a week). F/u BUN/Cr, daily weight, Is and Os, electrolytes (replete K+; f/u Mg). D/c potassium presently. F/u closely with PMD (pt says she has not been seeing Dr. Ferrer often recently) and with us. Code(s): I50.20 - UNSPECIFIED SYSTOLIC (CONGESTIVE) HEART FAILURE (13) Fatty liver Assessment/Plan: f/u by Dr. San noted; no plans for further hepatic w/u. Code(s): K76.0 - FATTY (CHANGE OF) LIVER, NOT ELSEWHERE CLASSIFIED
--- NOTE | 2016-07-14 17:12 | DS ---
Physical Exam: SUBJECTIVE: Patient seen and examined. feels better. she is stable for discharge and outpatient follow-up. OBJECTIVE: Vital Signs Period Temp Pulse Resp BP Sys/Santoro Pulse Ox Last 24 Hr 96.8 F-98.8 F 64-88 18-20 94-110/52-64 95-95 PHYSICAL EXAM GENERAL: The patient is awake, alert, and fully oriented, in no acute distress. LUNGS: Breath sounds equal, clear to auscultation bilaterally, no wheezes, no crackles, no accessory muscle use. HEART: Regular rate and rhythm, S1, S2 without murmur, rub or gallop. ABDOMEN: Soft, nontender, nondistended, mild firmness under umbilicus - improved since admission. normoactive bowel sounds, no guarding, EXTREMITIES: LE: b/l 1+ pulses, warm, well-perfused. erythema upto knee, 3+ edema upto knee, thighs without edema. ttp throughout legs, left medial knee with mild skin peeling- closed without bleeding. LABS Selected Entries 07/10/16 07/11/16 07/12/16 12:00 06:00 06:00 Weight 185 lb 0.014 oz 194 lb 6.4 oz 195 lb 5 oz 07/13/16 07/14/16 05:40 06:00 Weight 197 lb 197 lb 0.1 oz Laboratory Tests 07/09/16 07/09/16 07/09/16 13:00 15:40 18:05 WBC Hgb Hct Plt Count Sodium 142 Potassium 3.6 Chloride 97 L Carbon Dioxide 32 BUN 18 D Creatinine 0.9 Lactic Acid 1.995 Total Bilirubin Direct Bilirubin GGT AST ALT Alkaline Phosphatase Ammonia Troponin I 0.20 H 0.26 H Triglycerides 67 Cholesterol 78 Total LDL Cholesterol 48 HDL Cholesterol 33 L D 07/10/16 07/10/16 07/10/16 00:43 00:43 06:45 WBC 7.4 Hgb 12.0 Hct 37.5 Plt Count 195 Sodium Potassium Chloride Carbon Dioxide BUN Creatinine Lactic Acid Total Bilirubin Direct Bilirubin GGT AST ALT Alkaline Phosphatase Ammonia 52.96 H Troponin I 0.22 H Triglycerides Cholesterol Total LDL Cholesterol HDL Cholesterol 07/10/16 07/11/16 07/12/16 06:45 05:35 10:10 WBC Hgb Hct Plt Count Sodium 142 141 140 Potassium 2.9 L* 3.2 L 3.4 L Chloride 98 98 97 L Carbon Dioxide 34 H 31 31 BUN 21 H 30 H D 35 H Creatinine 0.8 1.4 H D 1.5 H Lactic Acid Total Bilirubin Direct Bilirubin GGT AST ALT Alkaline Phosphatase Ammonia Troponin I Triglycerides Cholesterol Total LDL Cholesterol HDL Cholesterol 07/13/16 07/14/16 05:35 06:30 WBC Hgb Hct Plt Count Sodium 138 Potassium 5.0 D Chloride 97 L Carbon Dioxide 31 BUN 42 H Creatinine 1.4 H Lactic Acid Total Bilirubin 3.3 H Direct Bilirubin 2.7 H GGT 229 H D AST 69 H ALT 48 Alkaline Phosphatase 171 H Ammonia Troponin I Triglycerides Cholesterol Total LDL Cholesterol HDL Cholesterol HOSPITAL COURSE: Date of Admission:07/09/16 - Date of Discharge: 07/14/16 61 yr old woman with systolic CHF, HTN, HLD, hypothyroidism, s/p pacemaker/ defibrillator, admitted for anasarca secondary to acute on chronic CHF and chest pain of 1 day duration. Her EKG did not show any acute ischemic changes, troponins were within her normal limit, patient has a history of abnormal troponin level and her chest pain resolved with morphine in the ED. She was treated for her acute CHF with lasix 40mg IVPB, which was changed to po 40mg daily when her Bun and Cr began to increase. While recorded weight trended up, clinically she improved. She also had hypokalemia after initiating lasix 40mg ivpb which was repleted and she was given 20mg bid. At discharge her potassium level was 5.0 and she was recommended to stop taking potassium until follow-up with her PCP and Dr. العلي. She was recently evaluated by Dr. San 07/07: He felt her liver dysfunction was likely secondary to her cardiac dysfunction. Her hep panel was neg for Hep a, B and C, her LFt's had improved on repeat labs. AMILCAR was 1:1280, which was noted as non-specific and she did not required any further hepatology follow-up. The following changes were made to her medications: Atorvastatin Ca [Lipitor] 20 mg 1 tablet at night daily Furosemide [Furosemide] 40 mg 1 tablet daily as need Levothyroxine [Synthroid -] 75 mcg 1 tablet daily Lisinopril [Prinivil] 10 mg 1 tablet daily Metoprolol Succinate [Toprol Xl] 200 mg 1 tablet daily Tamsulosin HCl [Flomax -] 0.4 mg 1 tablet daily Aldactone 25mg 1 tablet daily. Changes: Stop Norvasc Stop Potassium pills Lisinopril (Prinivil) has been decreased to 10mg from 20mg tablets. Minutes to complete discharge: 45 Discharge Summary Reason For Visit: CONGESTIVE HEART FAILURE Current Active Problems Acute exacerbation of CHF (congestive heart failure) (Acute) Anasarca (Acute) Acute combined systolic and diastolic ACC/AHA stage C congestive heart failure ( Chronic) Chest pain (Chronic) Cirrhosis of liver (Chronic) Dyspepsia (Chronic) Fatty liver (Chronic) Hyperbilirubinemia (Chronic) Hypertension (Chronic) Hypothyroidism (Chronic) Sphincter of Oddi dysfunction (Chronic) Status post THR (total hip replacement) (Chronic) Tobacco use disorder (Chronic) Transaminitis (Chronic) Condition: Stable - Instructions Diet, Activity, Other Instructions: Take your medications as prescribed: Atorvastatin Ca [Lipitor] 20 mg 1 tablet at night daily Furosemide [Furosemide] 40 mg 1 tablet daily as need Levothyroxine [Synthroid -] 75 mcg 1 tablet daily Lisinopril [Prinivil] 10 mg 1 tablet daily Metoprolol Succinate [Toprol Xl] 200 mg 1 tablet daily Tamsulosin HCl [Flomax -] 0.4 mg 1 tablet daily In addition start taking Aldactone 25mg 1 tablet daily. These are the changes to your medications: Stop taking Norvasc Stop taking Potassium pills Lisinopril (Prinivil) has been decreased to 10mg from 20mg tablets. Take your weight daily at home and keep a record of it to show your car ferrier Dr. العلي in 1 week. If your develop chest pain, difficulty breathing or you start to gain weight rapidly due to increase edema in your legs and abdomen, or you develop any new symptoms, return to the hospital. Referrals: Oneil العلي MD [Staff Physician] - 1 Week Parrish Ferrer MD [Staff Physician] - 1 Week Disposition: HOME - Home Medications Comprehensive Discharge Medication List: Ambulatory Orders Atorvastatin Ca [Lipitor] 20 mg PO DAILY 07/09/16 Furosemide 40 mg PO DAILY 07/09/16 NEEDED Levothyroxine [Synthroid -] 75 mcg PO DAILY 07/09/16 Lisinopril [Prinivil] 10 mg PO DAILY 07/09/16 Metoprolol Succinate [Toprol Xl] 200 mg PO DAILY 07/09/16 Tamsulosin HCl [Flomax -] 0.4 mg PO DAILY 07/09/16 Spironolactone [Aldactone -] 25 mg PO DAILY #30 tablet 07/14/16 This patient is new to me today: No Emergency Visit: No Critical Care patient: No - Discharge Referral Referred to [facility] No
[2016-07-14 18:13] VITALS: BP 110/71; PULSE 66; TEMP 97.3
[2016-07-15] MEDS ORDERED: LISINOPRIL 10 MG TABLET (FP) PO SCH (10:00)
[2016-07-15] MEDS ORDERED: METOPROLOL SUCCINATE 100 MG TAB.SR.24H (FP) PO SCH (10:00)
== END 2016-07-14 18:50 | disposition home or self-care (01) | DRG 292 ==
LOC: JER 12:00 → SUATTDRO 12:00 → JERBED 17:37 → UNDOADMIN 20:21 → J4W 07-10 15:38 → J5S 07-13 21:41
PROVIDERS: ADMIT Internal Medicine; ATTEND Internal Medicine
DX: I50.43 Acute on chronic combined systolic (congestive) and diastolic (congestive) heart failure (principal); N17.9 Acute kidney failure, unspecified; E78.5 Hyperlipidemia, unspecified; E03.9 Hypothyroidism, unspecified; R07.9 Chest pain, unspecified; K76.0 Fatty (change of) liver, not elsewhere classified; I11.0 Hypertensive heart disease with heart failure; R74.0 Nonspecific elevation of levels of transaminase and lactic acid dehydrogenase [LDH]; E11.9 Type 2 diabetes mellitus without complications; F32.9 Major depressive disorder, single episode, unspecified; Z95.810 Presence of automatic (implantable) cardiac defibrillator; I25.5 Ischemic cardiomyopathy; E87.6 Hypokalemia; I25.10 Atherosclerotic heart disease of native coronary artery without angina pectoris; Z95.1 Presence of aortocoronary bypass graft; Z98.61 Coronary angioplasty status; F17.210 Nicotine dependence, cigarettes, uncomplicated; I25.2 Old myocardial infarction
CPT/HCPCS: 36415; 71010-TC; 76700-TC; 80048; 80053; 80061; 80076; 82140; 82248; 82550; 82553; 82977; 83605; 83721; 83735; 84484; 85025; 85610; 85730; 86038; 86850; 86900; 86901; 93005; 93010; 93306-TC; 93970-TC; 94761; 99285-25

== ENCOUNTER 2016-07-22 11:44 | Inpatient (IN) | payer OTHER, BC ==
[2016-07-22 12:03] VITALS: BMI 34.9
[2016-07-22] MEDS ORDERED: morphine CARPU-JECT 4 MG/1 ML DISP.SYRIN IVPUSH ONE (13:08)
[2016-07-22] MEDS ORDERED: FUROSEMIDE 40 MG/4 ML INJECTABLE VIAL IVPUSH ONE (13:08)
--- NOTE | 2016-07-22 13:08 | PDOC ---
History of Present Illness - General History Source: Patient Exam Limitations: No Limitations - History of Present Illness Initial Comments: 07/22/16 13:30 The patient is a 61 year old female, with a significant past medical history of hypertension, hypercholesterolemia, CAD, NH(X2, s/pp defibrillator/pacemaker and CABG), CHF, DM, kidney stones and peripheral neuropathy, and hypothyroidism , who presents to the emergency department complaining of abdominal pain since last night. The patient was recently admitted at [facility] on 07/09/16 for bilateral lower extremity edema and chest pain. Since her discharge on 07/14/16 the patient reports she was feeling better. However, last night she began to experience difficulty breathing and diffuse abdominal pain. The patient reports her abdominal pain is worse below the umbilicus. She reports associated nonproductive cough and chills, but denies fever, headache, or dizziness. The patient reports bilateral lower extremity edema that is part of her baseline, but states that fluid is coming out of her leg. The patient denies any diaphoresis or palpitations. The patient denies nausea, vomiting, diarrhea, or constipation. The patient denies any dysuria, hematuria, frequency, or urgency. Allergies: Aspirin Past Surgical History: PEG tube placement, stent placement x2, CABG(2003), ICD/ Pacemaker(11/2014), Cholecystectomy (04/2016) Social History: Current everyday smoker(5 cigarettes per day). Denies alcohol or drug use. PCP: Dr. Ferrer ([phone]) Administrative Clerk: Dr. Cage Rn Perioperative: Dr. San ([phone]) <Alejandra Briscoe - Last Filed: 07/22/16 15:38> <Delia Ramirez - Last Filed: 07/22/16 16:40> - General Chief Complaint: Pain, Acute Stated Complaint: ABDOMINAL PAIN,SOB,EDEMA Time Seen by Provider: 07/22/16 12:26 Past History <Alejandra Briscoe - Last Filed: 07/22/16 15:38> - Past Medical History Anemia: No Asthma: Yes Cancer: No Cardiac Disorders: Yes (Stents, PM/Defib.) CVA: No COPD: No CHF: Yes Dementia: No Diabetes: No GI Disorders: Yes Disorders: No HTN: Yes Hypercholesterolemia: Yes Liver Disease: Yes Psychiatric Problems: Yes (depression.) Suicide Attempt (Hx): No Seizures: No Thyroid Disease: Yes (Hypo) - Surgical History Abdominal Surgery: Yes (hx of peg tube.) Appendectomy: No Cardiac Surgery: Yes (bypass,stent x2, CABG 2003, ICD/Pacer 7/15) Cholecystectomy: Yes (04/2016) Lung Surgery: (cabg 2003) Neurologic Surgery: No Orthopedic Surgery: Yes (Right THR) - Immunization History Immunization Up to Date: Yes - Psycho/Social/Smoking Cessation Hx Anxiety: No Suicidal Ideation: No Smoking Status: No Smoking History: Current every day smoker Have you smoked in the past 12 months: Yes Number of Cigarettes Smoked Daily: 5 Information on smoking cessation initiated: No 'Breaking Loose' booklet given: 07/10/16 Hx Alcohol Use: No Drug/Substance Use Hx: No Substance Use Type: None Hx Substance Use Treatment: No <Delia Ramirez - Last Filed: 07/22/16 16:40> - Past Medical History Allergies/Adverse Reactions: Allergies Allergy/AdvReac Type Severity Reaction Status Date / Time aspirin AdvReac Mild gi upset Verified 07/22/16 12:00 Home Medications: Ambulatory Orders Amlodipine Besylate 10 mg PO DAILY 07/09/16 Atorvastatin Ca [Lipitor] 20 mg PO DAILY 07/09/16 Furosemide 40 mg PO DAILY 07/09/16 Levothyroxine [Synthroid -] 75 mcg PO DAILY 07/09/16 Lisinopril [Prinivil] 20 mg PO DAILY 07/09/16 Metoprolol Succinate [Toprol Xl] 200 mg PO DAILY 07/09/16 Potassium Chloride 20 meq PO DAILY 07/09/16 Tamsulosin HCl [Flomax -] 0.4 mg PO DAILY 07/09/16 Lisinopril 10 mg PO DAILY #30 tablet 07/14/16 Spironolactone [Aldactone -] 25 mg PO DAILY #30 tablet 07/14/16 Review of Systems - Review of Systems Able to Perform ROS?: Yes Comments:: 07/22/16 13:31 GENERAL/CONSTITUTIONAL: +Chills. No fever. No weakness. HEAD, EYES, EARS, NOSE AND THROAT: No change in vision. No ear pain or discharge. No sore throat. CARDIOVASCULAR: No chest pain or shortness of breath. RESPIRATORY: No cough, wheezing, or hemoptysis. GASTROINTESTINAL: +Diffuse abdominal pain(worse below the umbilicus). No nausea , vomiting, diarrhea or constipation. GENITOURINARY: No dysuria, frequency, or change in urination. MUSCULOSKELETAL: No joint or muscle swelling or pain. No neck or back pain. SKIN: +Bilateral LE swelling (clear discharge). No rash NEUROLOGIC: No headache, vertigo, loss of consciousness, or change in strength/ sensation. ENDOCRINE: No increased thirst. No abnormal weight change. HEMATOLOGIC/LYMPHATIC: No anemia, easy bleeding, or history of blood clots. ALLERGIC/IMMUNOLOGIC: No hives or skin allergy. <Alejandra Briscoe - Last Filed: 07/22/16 15:38> *Physical Exam - Vital Signs Last Vital Signs Temp Pulse Resp BP Pulse Ox 97.9 F 102 H 22 138/79 98 07/22/16 12:00 07/22/16 12:00 07/22/16 12:00 07/22/16 12:00 07/22/16 12:00 <Alejandra Briscoe - Last Filed: 07/22/16 15:38> - Vital Signs Last Vital Signs Temp Pulse Resp BP Pulse Ox 97.9 F 102 H 22 138/79 98 07/22/16 12:00 07/22/16 12:00 07/22/16 12:00 07/22/16 12:00 07/22/16 12:00 - Physical Exam Comments: GENERAL: Awake, alert, and fully oriented. Appears in obvious discomfort. HEAD: No signs of trauma EYES: PERRLA, EOMI, sclera anicteric, conjunctiva clear ENT: Auricles normal inspection, hearing grossly normal, nares patent, oropharynx clear without exudates. Moist mucosa NECK: Normal ROM, supple, no lymphadenopathy, JVD, or masses LUNGS: Breath sounds equal, clear to auscultation bilaterally. No wheezes, and no crackles HEART: Regular rate and rhythm, normal S1 and S2, no murmurs, rubs or gallops ABDOMEN: Soft, diffusely tender, normoactive bowel sounds. No guarding, no rebound. No masses. +Pitting edema to anterior abdominal wall. EXTREMITIES: Normal range of motion. 3+ pitting edema to BLE. With open lesion to R villagran, draining clear fluid. No surrounding erythema. No clubbing or cyanosis. No cords, erythema. NEUROLOGICAL: Cranial nerves II through XII grossly intact. Normal speech. Motor and sensation intact. SKIN: Warm, Dry, normal turgor, no rashes or lesions noted. <Delia Ramirez - Last Filed: 07/22/16 16:40> Heart Score/ECG Review - ECG Impressions Comment:: EKG read 12:44- Sinus tach 104, +IVCD, ST elev V1-3 Similar to EKG from Jul 09, 2016. <Delia Ramirez - Last Filed: 07/22/16 16:40> ED Treatment Course - LABORATORY CBC & Chemistry Diagram: 07/22/16 13:10 07/22/16 14:55 - RADIOLOGY Radiograph Interpretation: 07/22/16 14:57 EXAM: CXR INTERPRETED BY: Dr. Gonzales REVIEWED BY: Dr. Ramirez IMPRESSION: Since 07/09/2016, again noted is the large heart with sclerotic knob , sternal sutures, pacemaker and congestive changes. Follow-up recommended. <Alejandra Briscoe - Last Filed: 07/22/16 15:38> - LABORATORY CBC & Chemistry Diagram: 07/22/16 13:10 07/22/16 14:55 <Delia Ramirez - Last Filed: 07/22/16 16:40> *DC/Admit/Observation/Transfer - Attestations Scribe Attestion: 07/22/16 13:31 Documentation prepared by Alejandra Briscoe, acting as medical and health services manager for Delia Ramirez MD. <Alejandra Briscoe - Last Filed: 07/22/16 15:38> - Discharge Dispostion Admit: Yes <Delia Ramirez - Last Filed: 07/22/16 16:40> Diagnosis at time of Disposition: Abdominal discomfort, Anasarca, Shortness of breath Abdominal pain Qualifiers: Abdominal location: generalized Qualified Code(s): R10.84 - Generalized abdominal pain CHF (congestive heart failure), NYHA class III Qualifiers: Congestive heart failure type: unspecified congestive heart failure type Qualified Code(s): I50.9 - Heart failure, unspecified - Discharge Dispostion Condition at time of disposition: Guarded
[2016-07-22] MEDS ORDERED: morphine CARPU-JECT 4 MG/1 ML DISP.SYRIN ONE (13:24)
[2016-07-22] MEDS ORDERED: FUROSEMIDE 40 MG/4 ML INJECTABLE VIAL ONE (13:24)
[2016-07-22 13:43] LABS: BASOPHIL 0.5 % (0-2.0); MCH 25.6 pg (25.7-33.7); MCHC 31.1 g/dl (32.0-36.0); MEAN CELL VOLUME 82.2 fl (80-96); MEAN PLT VOLUME 8.2 fl (7.5-11.1); NEUTROPHILS 74.6 % (42.8-82.8); PLATELET COUNT 200 K/MM3 (134-434); RDW 21.2 % (11.6-15.6); WHITE BLOOD COUNT 9.7 K/mm3 (4.0-10.0)
[2016-07-22 14:06] LABS: INR 1.85 (0.82-1.09); PROTHROMBIN TIME (PATIENT) 20.6 SEC (9.98-11.88)
[2016-07-22 15:06] LABS: URINE APPEARANCE CLEAR; URINE BILIRUBIN NEGATIVE (NEGATIVE); URINE BLOOD NEGATIVE (NEGATIVE); URINE COLOR YELLOW; URINE GLUCOSE (UA) NEGATIVE (NEGATIVE); URINE KETONE NEGATIVE (NEGATIVE); URINE LEUK ESTERASE NEGATIVE (NEGATIVE); URINE NITRITE NEGATIVE (NEGATIVE); URINE PROTEIN NEGATIVE (NEGATIVE); URINE UROBILINOGEN NEGATIVE E.U./dl (0.2-1.0)
[2016-07-22 15:18] LABS: ANION GAP 13 (8-16); BILIRUBIN,TOTAL 5.4 mg/dL (0.2-1.0); CALCIUM 8.8 mg/dL (8.5-10.1); CO2 30 mmol/L (21-32); CREATININE 0.9 mg/dL (0.55-1.02); GLUCOSE,RANDOM 75 mg/dL (74-106); SGOT/AST 45 U/L (15-37); SGPT/ALT 38 U/L (12-78); TOT PROT 6.7 g/dl (6.4-8.2)
[2016-07-22 15:20] LABS: ALK PHOS 158 U/L (45-117); TROPONIN I 0.18 ng/ml (0.00-0.05)
[2016-07-22] MEDS ORDERED: guaiFENesin/D-METHORPHAN HB 10 ML UNIT-DOSE CUPS PO STA (16:09)
--- NOTE | 2016-07-22 16:18 | HP ---
Admitting History and Physical - Admission History of Present Illness: 61 year old female, with a significant past medical history of hypertension, hypercholesterolemia, CAD, SD(X2, s/pp defibrillator/pacemaker and CABG), CHF, DM, kidney stones and peripheral neuropathy, and hypothyroidism, who presents to the emergency department complaining of abdominal pain since last night. The patient was recently admitted at [facility] on 07/09/16 for bilateral lower extremity edema and chest pain. Since her discharge on 07/14/16 the patient reports she was feeling better. However, last night she began to experience difficulty breathing and diffuse abdominal pain. The patient reports her abdominal pain is worse below the umbilicus. She reports associated nonproductive cough and chills , but denies fever, headache, or dizziness. 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 Had PEG placed 11/03 after suffering vocal cord damage ( EMS intubation). PEG was subsequently removed. 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 History of Recent Travel: No Home Medications - Allergies Allergies/Adverse Reactions: Allergies Allergy/AdvReac Type Severity Reaction Status Date / Time aspirin AdvReac Mild gi upset Verified 07/22/16 12:00 - Home Medications Home Medications: Ambulatory Orders Amlodipine Besylate 10 mg PO DAILY 07/09/16 Atorvastatin Ca [Lipitor] 20 mg PO DAILY 07/09/16 Furosemide 40 mg PO DAILY 07/09/16 Levothyroxine [Synthroid -] 75 mcg PO DAILY 07/09/16 Lisinopril [Prinivil] 20 mg PO DAILY 07/09/16 Metoprolol Succinate [Toprol Xl] 200 mg PO DAILY 07/09/16 Potassium Chloride 20 meq PO DAILY 07/09/16 Tamsulosin HCl [Flomax -] 0.4 mg PO DAILY 07/09/16 Lisinopril 10 mg PO DAILY #30 tablet 07/14/16 Spironolactone [Aldactone -] 25 mg PO DAILY #30 tablet 07/14/16 Family Disease History - Family Disease History Family Disease History: Diabetes: Sister (s/p CABG in her 50s), Heart Disease: Father (had unknown cancer), Mother (lived to ), Sister, [place]: Father Review of Systems - Review of Systems Constitutional: reports: Lethargy, Loss of Appetite, Malaise, Weakness Eyes: denies: No Symptoms, Blind Spots, Blurred Vision, Double Vision, Eye Pain , Floaters, Photophobia, Recent Change in Vision, Other HENT: denies: No Symptoms, Difficult Swallowing, Ear Discharge, Ear Pain, Epistaxis, Gingival Bleeding, Hearing Loss, Mouth Swelling, Nasal Congestion, Ocular Prosthesis, Throat Pain, Toothache, Ringing in Ears, Other Neck: denies: No Symptoms, Decreased ROM, Lumps, Pain on Movement, Stiffness, Swollen Glands, Tenderness, Other Cardiovascular: denies: No Symptoms, Chest Pain, Edema, Palpitations, Shortness of Breath, Other Respiratory: reports: Cough Gastrointestinal: reports: Abdominal Pain, Vomiting Genitourinary: denies: No Symptoms, Burning, Discharge, Dysuria, Flank Pain, Frequency, Hematuria, Incontinence, Lesions, Menses, Pain, Testicular Mass, Testicular Pain, Testicular Swelling, Urgency, Vaginal Bleeding, Other Breasts: denies: No Symptoms Reported, See HPI, Breast Implants, Discharge from Nipple, Lumps, Pain, Skin Changes, Other Musculoskeletal: reports: Muscle Pain Integumentary: denies: No Symptoms, Blister, Bruising, Change in Color, Eczema, Erythema, Incision, Lesions, Lump, Pallor, Pruritis, Rash, Wound, Other Neurological: denies: No Symptoms, Change in LOC, Change in Speech, Confusion, Dizziness, Headache, Incoordination, Numbness, Parasthesia, Pre-Existing Deficit , Seizure, Syncope, Tremors, Unsteady Gait, Weakness, Other Endocrine: denies: No Symptoms, Excessive Sweating, Flushing, Increased Hunger, Increased Thirst, Intolerance to Cold, Intolerance to Heat, Unexplained Weight Gain, Unexplained Weight Loss, Other Hematology/Lymphatic: denies: No Symptoms, Easily Bruised, Excessive Bleeding, Swollen Glands, Other Psychiatric: denies: No Symptoms, Altered Sleep Pattern, Anxiety, Depression, Hallucinations, Panic, Paranoia, Suicidal, Other Physical Examination Vital Signs: Vital Signs Temperature 97.9 F 07/22/16 12:00 Pulse Rate 103 H 07/22/16 15:53 Respiratory Rate 20 07/22/16 15:53 Blood Pressure 135/92 07/22/16 15:18 O2 Sat by Pulse Oximetry (%) 96 07/22/16 15:53 Constitutional: Yes: Well Nourished, Calm, Moderate Distress Eyes: Yes: WNL, Conjunctiva Clear, EOM Intact HENT: Yes: WNL, Atraumatic, Normocephalic, Other (dry mucous membranes) Neck: Yes: WNL, Supple, Trachea Midline Cardiovascular: Yes: Tachycardia Respiratory: Yes: WNL, Regular, CTA Bilaterally Gastrointestinal: Yes: Normal Bowel Sounds, Soft, Tenderness. No: Tenderness, Rebound Musculoskeletal: Yes: WNL Extremities: Yes: WNL Edema: Yes Edema: LLE: 1+, RLE: 1+ Integumentary: Yes: WNL Neurological: Yes: WNL, Alert, Oriented ...Motor Strength: WNL Psychiatric: Yes: WNL Labs: CBC, BMP 07/22/16 13:10 07/22/16 14:55 Assessment/Plan 61 year old female, with a significant past medical history of hypertension, hypercholesterolemia, CAD, SD(X2, s/pp defibrillator/pacemaker and CABG), CHF, DM, kidney stones and peripheral neuropathy, and hypothyroidism, admitted for lethargy and constitutional symptoms lethargy and constitutional symptoms -pt complaining of dry cough and has been coughing during this evaluation -was recently admitted to [facility] so will test for influenza given cough, malaise, nausea, and muscle aches -guaifenesin CHF -not currently in failure -legs less edematous than usual -cont metoprolol -cont PO lasix -cont statin -cont lisinopril DM -sliding scale insulin for now as pt has very poor PO intake at this time hypothyroidism -cont synthroid DVT proph -lovenox Visit type - Emergency Visit Emergency Visit: Yes Care time: The patient presented to the Emergency Department on the above date and was hospitalized for further evaluation of their emergent condition. - New Patient This patient is new to me today: Yes Date on this admission: 07/22/16 - Critical Care Critical Care patient: No
[2016-07-22] MEDS: guaiFENesin/D-METHORPHAN HB 10 ML UNIT-DOSE CUPS PO SCH (17:33)
--- NOTE | 2016-07-22 19:18 | CON.CARD ---
Consult - History of Present Illness History of Present Illness: The patient is a 61 year old female, with a significant past medical history of hypertension, hypercholesterolemia, CAD, DE(X2, s/pp defibrillator/pacemaker and CABG), CHF, DM, kidney stones and peripheral neuropathy, and hypothyroidism , who presents to the emergency department complaining of abdominal pain since last night. The patient was recently admitted at [facility] on 07/09/16 for bilateral lower extremity edema and chest pain. Since her discharge on 07/14/16 the patient reports she was feeling better. However, last night she began to experience difficulty breathing and diffuse abdominal pain. The patient reports her abdominal pain is worse below the umbilicus. She reports associated nonproductive cough and chills, but denies fever, headache, or dizziness. The patient reports bilateral lower extremity edema that is part of her baseline, but states that fluid is coming out of her leg. The patient denies any diaphoresis or palpitations. The patient denies nausea, vomiting, diarrhea, or constipation. The patient denies any dysuria, hematuria, frequency, or urgency. 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 Had PEG placed 11/03 after suffering vocal cord damage ( EMS intubation). PEG was subsequently removed. ) Hepatobiliary: Yes: Cholecystitis Renal/: Yes: Renal Calculi ...: No Psych: Yes: Depression Musculoskeletal: Yes: Chronic low back pain Endocrine: Yes: Hypothyroidism - Past Surgical History Past Surgical History: Yes: AICD, CABG, Cholecystectomy, Colonoscopy, Joint Replacement (right THR), Stent (X2) - Alcohol/Substance Use Hx Alcohol Use: No History of Substance Use: reports: None - Smoking History Smoking history: Current every day smoker Have you smoked in the past 12 months: Yes Aproximately how many cigarettes per day: 5 - Social History Usual Living Arrangement: With Child ADL: Independent 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 History of Recent Travel: No Home Medications - Allergies Allergies/Adverse Reactions: Allergies Allergy/AdvReac Type Severity Reaction Status Date / Time aspirin AdvReac Mild gi upset Verified 07/22/16 12:00 - Home Medications Home Medications: Ambulatory Orders Amlodipine Besylate 10 mg PO DAILY 07/09/16 Atorvastatin Ca [Lipitor] 20 mg PO DAILY 07/09/16 Furosemide 40 mg PO DAILY 07/09/16 Levothyroxine [Synthroid -] 75 mcg PO DAILY 07/09/16 Lisinopril [Prinivil] 20 mg PO DAILY 07/09/16 Metoprolol Succinate [Toprol Xl] 200 mg PO DAILY 07/09/16 Potassium Chloride 20 meq PO DAILY 07/09/16 Tamsulosin HCl [Flomax -] 0.4 mg PO DAILY 07/09/16 Lisinopril 10 mg PO DAILY #30 tablet 07/14/16 Spironolactone [Aldactone -] 25 mg PO DAILY #30 tablet 07/14/16 Family Disease History - Family Disease History Family Disease History: Diabetes: Sister (s/p CABG in her 50s), Heart Disease: Father (had unknown cancer), Mother (lived to ), Sister, [place]: Father Review of Systems - Review of Systems Constitutional: reports: No Symptoms Eyes: reports: No Symptoms HENT: reports: No Symptoms Neck: reports: No Symptoms Cardiovascular: reports: No Symptoms Respiratory: reports: SOB, SOB on Exertion Gastrointestinal: reports: Abdominal Pain Genitourinary: reports: No Symptoms Breasts: reports: No Symptoms Reported Musculoskeletal: reports: No Symptoms Integumentary: reports: No Symptoms Neurological: reports: No Symptoms Endocrine: reports: No Symptoms Hematology/Lymphatic: reports: No Symptoms Psychiatric: reports: No Symptoms Vital Signs: Vital Signs Temperature 98 F 07/22/16 17:59 Pulse Rate 96 H 07/22/16 17:59 Respiratory Rate 18 07/22/16 17:59 Blood Pressure 132/80 07/22/16 17:59 O2 Sat by Pulse Oximetry (%) 96 07/22/16 17:59 Constitutional: Yes: Well Nourished, No Distress, Calm Eyes: Yes: WNL, Conjunctiva Clear, EOM Intact HENT: Yes: WNL, Atraumatic, Normocephalic Neck: Yes: WNL, Supple, Trachea Midline Respiratory: Yes: WNL, Regular, CTA Bilaterally Gastrointestinal: Yes: WNL, Normal Bowel Sounds Renal/: Yes: WNL Cardiovascular: Yes: WNL, Regular Rate and Rhythm Musculoskeletal: Yes: WNL Extremities: Yes: WNL Integumentary: Yes: WNL Neurological: Yes: WNL, Alert, Oriented ...Motor Strength: WNL Psychiatric: Yes: WNL, Alert, Oriented - Other Data Labs, Other Data: INR, PTT INR 1.85 (0.82-1.09) H 07/22/16 13:10 Laboratory Tests 07/22/16 07/22/16 07/22/16 13:10 13:10 13:10 WBC 9.7 D RBC 4.77 Hgb 12.2 Hct 39.2 MCV 82.2 MCHC 31.1 L RDW 21.2 H Plt Count 200 MPV 8.2 Neutrophils % 74.6 Lymphocytes % 12.0 Monocytes % 12.9 H Eosinophils % 0.0 Basophils % 0.5 INR 1.85 H Sodium Potassium Chloride Carbon Dioxide Anion Gap BUN Creatinine Creat Clearance w eGFR Random Glucose Calcium Total Bilirubin AST ALT Alkaline Phosphatase Creatine Kinase CK-MB (CK-2) Troponin I Total Protein Albumin Lipase Urine Color Yellow Urine Appearance Clear Urine pH 6.0 Ur Specific [place] 1.006 Urine Protein Negative Urine Glucose (UA) Negative Urine Ketones Negative Urine Blood Negative Urine Nitrite Negative Urine Bilirubin Negative Urine Urobilinogen Negative Ur Leukocyte Esterase Negative 07/22/16 07/22/16 07/22/16 13:10 14:55 14:55 WBC RBC Hgb Hct MCV MCHC RDW Plt Count MPV Neutrophils % Lymphocytes % Monocytes % Eosinophils % Basophils % INR Sodium Cancelled 140 Potassium Cancelled 3.6 D Chloride Cancelled 97 L Carbon Dioxide Cancelled 30 Anion Gap Cancelled 13 BUN Cancelled 17 D Creatinine Cancelled 0.9 D Creat Clearance w eGFR Cancelled > 60 Random Glucose Cancelled 75 Calcium Cancelled 8.8 Total Bilirubin Cancelled 5.4 H D AST Cancelled 45 H D ALT Cancelled 38 D Alkaline Phosphatase Cancelled 158 H Creatine Kinase Cancelled 247 H D CK-MB (CK-2) 8.193 H Troponin I Cancelled 0.18 H Total Protein Cancelled 6.7 Albumin Cancelled 3.0 L Lipase Cancelled 34 L Urine Color Urine Appearance Urine pH Ur Specific [place] Urine Protein Urine Glucose (UA) Urine Ketones Urine Blood Urine Nitrite Urine Bilirubin Urine Urobilinogen Ur Leukocyte Esterase Imaging - Results Chest X-ray: Image Reviewed (chf/aicd) EKG: Image Reviewed (sr old ant wall mi) Problem List - Problems (1) Anasarca Code(s): R60.1 - GENERALIZED EDEMA (2) Abdominal discomfort Code(s): R10.9 - UNSPECIFIED ABDOMINAL PAIN (3) Abdominal pain Code(s): R10.9 - UNSPECIFIED ABDOMINAL PAIN Qualifiers: Abdominal location: generalized Qualified Code(s): R10.84 - Generalized abdominal pain (4) Acute combined systolic and diastolic ACC/AHA stage C congestive heart failure Code(s): I50.41 - ACUTE COMBINED SYSTOLIC AND DIASTOLIC (CONGESTIVE) HRT FAIL (5) CHF (congestive heart failure), NYHA class III Code(s): I50.9 - HEART FAILURE, UNSPECIFIED Qualifiers: Congestive heart failure type: unspecified congestive heart failure type Qualified Code(s): I50.9 - Heart failure, unspecified (6) Chest pain Code(s): R07.9 - CHEST PAIN, UNSPECIFIED (7) Dyspepsia Code(s): K30 - FUNCTIONAL DYSPEPSIA (8) Hyperbilirubinemia Code(s): E80.6 - OTHER DISORDERS OF BILIRUBIN METABOLISM (9) Hypertension Code(s): I10 - ESSENTIAL (PRIMARY) HYPERTENSION (10) Hypothyroidism Code(s): E03.9 - HYPOTHYROIDISM, UNSPECIFIED (11) Shortness of breath Code(s): R06.02 - SHORTNESS OF BREATH (12) Sphincter of Oddi dysfunction Code(s): K83.4 - SPASM OF SPHINCTER OF ODDI (13) Status post THR (total hip replacement) Code(s): Z96.649 - PRESENCE OF UNSPECIFIED ARTIFICIAL HIP JOINT (14) Tobacco use disorder Code(s): Z72.0 - TOBACCO USE (15) Transaminitis Code(s): R74.0 - NONSPEC ELEV OF LEVELS OF TRANSAMNS & LACTIC ACID DEHYDRGNSE (16) Postoperative abdominal pain Code(s): R10.9 - UNSPECIFIED ABDOMINAL PAIN G89.18 - OTHER ACUTE POSTPROCEDURAL PAIN (17) Acute exacerbation of CHF (congestive heart failure) Code(s): I50.9 - HEART FAILURE, UNSPECIFIED (18) Edema Code(s): R60.9 - EDEMA, UNSPECIFIED Qualifiers: Edema type: generalized Qualified Code(s): R60.1 - Generalized edema (19) Lower extremity edema Code(s): R60.0 - LOCALIZED EDEMA Qualifiers: Laterality: bilateral Qualified Code(s): R60.0 - Localized edema (20) Orthopnea Code(s): R06.01 - ORTHOPNEA (21) Pitting edema Code(s): R60.9 - EDEMA, UNSPECIFIED (22) Abdominal pain, diffuse Code(s): R10.84 - GENERALIZED ABDOMINAL PAIN (23) Acute on chronic systolic and diastolic heart failure, NYHA class 3 Code(s): I50.43 - ACUTE ON CHRONIC COMBINED SYSTOLIC AND DIASTOLIC HRT FAIL (24) CHF (congestive heart failure) Code(s): I50.9 - HEART FAILURE, UNSPECIFIED Qualifiers: Congestive heart failure type: unspecified congestive heart failure type Congestive heart failure chronicity: unspecified congestive heart failure chronicity Qualified Code(s): I50.9 - Heart failure, unspecified (25) Cholecystitis without cholelithiasis Code(s): K81.9 - CHOLECYSTITIS, UNSPECIFIED (26) Chronic systolic congestive heart failure Code(s): I50.22 - CHRONIC SYSTOLIC (CONGESTIVE) HEART FAILURE (27) Cirrhosis of liver Code(s): K74.60 - UNSPECIFIED CIRRHOSIS OF LIVER (28) Coronary artery disease Code(s): I25.10 - ATHSCL HEART DISEASE OF [place] CORONARY ARTERY W/O ANG PCTRS (29) Depression Code(s): F32.9 - MAJOR DEPRESSIVE DISORDER, SINGLE EPISODE, UNSPECIFIED (30) Diabetes Code(s): E11.9 - TYPE 2 DIABETES MELLITUS WITHOUT COMPLICATIONS (31) Fatty liver Code(s): K76.0 - FATTY (CHANGE OF) LIVER, NOT ELSEWHERE CLASSIFIED (32) Hyperlipidemia Code(s): E78.5 - HYPERLIPIDEMIA, UNSPECIFIED (33) Hypoalbuminemia Code(s): E88.09 - OTH DISORDERS OF PLASMA-PROTEIN METABOLISM, NEC (34) ICD (implantable cardioverter-defibrillator) in place Code(s): Z95.810 - PRESENCE OF AUTOMATIC (IMPLANTABLE) CARDIAC DEFIBRILLATOR (35) Migraine headache Code(s): G43.909 - MIGRAINE, UNSP, NOT INTRACTABLE, WITHOUT STATUS MIGRAINOSUS (36) Peripheral neuropathy Code(s): G62.9 - POLYNEUROPATHY, UNSPECIFIED (38) Risk for coronary artery disease greater than 20% in next 10 years Code(s): Z91.89 - OTH PERSONAL RISK FACTORS, NOT ELSEWHERE CLASSIFIED (39) Substance abuse Code(s): F19.10 - OTHER PSYCHOACTIVE SUBSTANCE ABUSE, UNCOMPLICATED (40) Systolic heart failure Code(s): I50.20 - UNSPECIFIED SYSTOLIC (CONGESTIVE) HEART FAILURE (41) Autoimmune hepatitis Code(s): K75.4 - AUTOIMMUNE HEPATITIS Assessment/Plan ashd chf systolic s/p aicd htn hld dm s/p mi chronic abdominal pain Plan gi eval telemetry r/o DE
[2016-07-23] MEDS: guaiFENesin/D-METHORPHAN HB 10 ML UNIT-DOSE CUPS PO SCH ×4 (00:05→17:19)
[2016-07-23] MEDS: LEVOTHYROXINE NA 75 MCG TABLET (FP) PO SCH (06:13)
[2016-07-23 08:21] LABS: BASOPHIL 0.3 % (0-2.0); MCH 26.1 pg (25.7-33.7); MCHC 31.6 g/dl (32.0-36.0); MEAN CELL VOLUME 82.6 fl (80-96); MEAN PLT VOLUME 8.3 fl (7.5-11.1); NEUTROPHILS 66.8 % (42.8-82.8); PLATELET COUNT 197 K/MM3 (134-434); RDW 21.1 % (11.6-15.6); WHITE BLOOD COUNT 8.1 K/mm3 (4.0-10.0)
[2016-07-23 09:06] LABS: ALBUMIN 2.6 g/dl (3.4-5.0); BILIRUBIN,TOTAL 5.6 mg/dL (0.2-1.0); CALCIUM 8.7 mg/dL (8.5-10.1); CREATININE 1.1 mg/dL (0.55-1.02); MAGNESIUM 1.7 mg/dL (1.8-2.4)
--- NOTE | 2016-07-23 09:10 | PN ---
Physical Exam: SUBJECTIVE: Patient seen and examined abdominal pain is similar to pain she has had in the past. better this morning than at admission. has been having bowel movements. denied chest pain, palpitations, sob. OBJECTIVE: Vital Signs Period Temp Pulse Resp BP Sys/Santoro Pulse Ox Last 24 Hr 97.9 F-98.1 F 77-104 16-20 114-132/68-84 96-97 GENERAL: The patient is awake, alert, and fully oriented, in no acute distress. EYES: extraocular movements intact, sclera anicteric, conjunctiva clear ENT: Ears normal, nares patent, moist mucous membranes. NECK: Trachea midline, full range of motion, supple. LUNGS: Breath sounds equal, clear to auscultation bilaterally, no wheezes, no crackles, no accessory muscle use. HEART: Regular rate and irregular rhythm, S1, S2 without murmur, rub or gallop. ABDOMEN: Soft, diffusely tender, nondistended, normoactive bowel sounds, no guarding, no rebound, healing port site in upper abdomen without fluctuance or surrounding erythema. EXTREMITIES: 2+ pulses, warm, well-perfused. ttp b/l throughout le. 1+ edema b/ l. Laboratory Results - last 24 hr 07/23/16 07/23/16 05:45 05:45 WBC 8.1 RBC 4.56 Hgb 11.9 Hct 37.7 MCV 82.6 MCHC 31.6 L RDW 21.1 H Plt Count 197 MPV 8.3 Neutrophils % 66.8 Lymphocytes % 16.6 D Monocytes % 16.3 H Eosinophils % 0.0 Basophils % 0.3 Sodium 140 Potassium 4.0 Chloride 97 L Carbon Dioxide 34 H Anion Gap 9 BUN 19 H Creatinine 1.1 H D Creat Clearance w eGFR 50.17 Random Glucose 64 L Calcium 8.7 Phosphorus 3.0 D Magnesium 1.7 L Total Bilirubin 5.6 H AST 43 H ALT 35 Alkaline Phosphatase 146 H Total Protein 6.0 L Albumin 2.6 L Active Medications Active Medications Atorvastatin Calcium (Lipitor -) 20 mg PO HS [facility] Enoxaparin Sodium (Lovenox -) 40 mg SQ DAILY [facility] Last Admin: 07/23/16 09:34 Dose: Not Given Furosemide (Lasix -) 40 mg PO DAILY [facility] Last Admin: 07/23/16 09:33 Dose: 40 mg Guaifenesin (Robitussin Dm -) 10 ml PO Q6HPO [facility] Last Admin: 07/23/16 17:19 Dose: Not Given Levothyroxine Sodium (Synthroid -) 75 mcg PO DAILY@0700 [facility] Last Admin: 07/23/16 06:13 Dose: 75 mcg Lisinopril (Prinivil) 10 mg PO DAILY [facility] Last Admin: 07/23/16 09:34 Dose: Not Given Metoprolol Succinate (Toprol Xl -) 200 mg PO DAILY [facility] Last Admin: 07/23/16 09:33 Dose: 200 mg Spironolactone (Aldactone -) 25 mg PO DAILY [facility] Last Admin: 07/23/16 09:33 Dose: 25 mg Tamsulosin HCl (Flomax -) 0.4 mg PO DAILY [facility] Last Admin: 07/23/16 09:33 Dose: 0.4 mg ASSESSMENT/PLAN: 61 yr old woman with systolic CHF, HTN, HLD, hypothyroidism, s/p pacemaker/ defibrillator, admitted for abdominal pain. #Abdominal pain - as per GI possibly due to hepatic congestion secondary to heart failure; abdominal ultrasound to asses ascitis and screen for hepatoma. # CHF- abdominal edema and le edema is improved since previous admission - not in acute exacerbation - lasix 40mg po daily - aldactone 25mg po daily - cardiology consult Dr. Garcia #Acute kidney injury - likely from poor po intake vs duiretic use - elevated cr and elevated BUN, has CHF will avoid ivf, encourage po #CAD - atorvastatin 20 mg po qhs #HTN - controlled - toprol xl 200 mg po daily - lisinopril 10mg po daily #Hypothyroidism - 75 mcg synthroid qdaily #DM - no oral hypoglycemics at home. last HbA1c 03/2016 5.7 - NISS DvT px: lovenox 40mg daily diet: low sodium Visit type - Emergency Visit Emergency Visit: No - New Patient This patient is new to me today: No - Critical Care Critical Care patient: No - Discharge Referral Referred to [facility] No
--- NOTE | 2016-07-23 09:20 | PN ---
Progress Note, Physician History of Present Illness: The patient is a 61 year old female, with a significant past medical history of hypertension, hypercholesterolemia, CAD, MA(X2, s/pp defibrillator/pacemaker and CABG), CHF, DM, kidney stones and peripheral neuropathy, and hypothyroidism , who presents to the emergency department complaining of abdominal pain since last night. The patient was recently admitted at [facility] on 07/09/16 for bilateral lower extremity edema and chest pain. Since her discharge on 07/14/16 the patient reports she was feeling better. However, last night she began to experience difficulty breathing and diffuse abdominal pain. The patient reports her abdominal pain is worse below the umbilicus. She reports associated nonproductive cough and chills, but denies fever, headache, or dizziness. The patient reports bilateral lower extremity edema that is part of her baseline, but states that fluid is coming out of her leg. The patient denies any diaphoresis or palpitations. The patient denies nausea, vomiting, diarrhea, or constipation. The patient denies any dysuria, hematuria, frequency, or urgency. - Current Medication List Current Medications: Active Medications Amlodipine Besylate (Norvasc -) 10 mg PO DAILY [facility] Atorvastatin Calcium (Lipitor -) 20 mg PO HS [facility] Enoxaparin Sodium (Lovenox -) 40 mg SQ DAILY [facility] Furosemide (Lasix -) 40 mg PO DAILY [facility] Guaifenesin (Robitussin Dm -) 10 ml PO Q6HPO [facility] Last Admin: 07/23/16 05:30 Dose: Not Given Levothyroxine Sodium (Synthroid -) 75 mcg PO DAILY@0700 [facility] Last Admin: 07/23/16 06:13 Dose: 75 mcg Lisinopril (Prinivil) 10 mg PO DAILY [facility] Metoprolol Succinate (Toprol Xl -) 200 mg PO DAILY [facility] Potassium Chloride (K-Dur -) 20 meq PO DAILY [facility] Spironolactone (Aldactone -) 25 mg PO DAILY [facility] Tamsulosin HCl (Flomax -) 0.4 mg PO DAILY [facility] - Objective Vital Signs: Vital Signs Temperature 98 F 07/23/16 08:05 Pulse Rate 77 07/23/16 08:05 Respiratory Rate 18 07/23/16 08:05 Blood Pressure 114/68 07/23/16 08:05 O2 Sat by Pulse Oximetry (%) 97 07/22/16 21:00 Eyes: Yes: WNL, Conjunctiva Clear, EOM Intact HENT: Yes: WNL, Atraumatic, Normocephalic Neck: Yes: WNL, Supple, Trachea Midline Cardiovascular: Yes: WNL, Regular Rate and Rhythm Respiratory: Yes: WNL, Regular, CTA Bilaterally Gastrointestinal: Yes: WNL, Normal Bowel Sounds Genitourinary: Yes: WNL Musculoskeletal: Yes: WNL Extremities: Yes: WNL Edema: No Integumentary: Yes: WNL Neurological: Yes: WNL, Alert, Oriented ...Motor Strength: WNL Psychiatric: Yes: WNL Labs: CBC, BMP 07/23/16 05:45 07/23/16 05:45 INR, PTT INR 1.85 (0.82-1.09) H 07/22/16 13:10 Problem List - Problems (1) Anasarca Code(s): R60.1 - GENERALIZED EDEMA (2) Abdominal discomfort Code(s): R10.9 - UNSPECIFIED ABDOMINAL PAIN (3) Abdominal pain Code(s): R10.9 - UNSPECIFIED ABDOMINAL PAIN Qualifiers: Abdominal location: generalized Qualified Code(s): R10.84 - Generalized abdominal pain (4) Acute combined systolic and diastolic ACC/AHA stage C congestive heart failure Code(s): I50.41 - ACUTE COMBINED SYSTOLIC AND DIASTOLIC (CONGESTIVE) HRT FAIL (5) CHF (congestive heart failure), NYHA class III Code(s): I50.9 - HEART FAILURE, UNSPECIFIED Qualifiers: Congestive heart failure type: unspecified congestive heart failure type Qualified Code(s): I50.9 - Heart failure, unspecified (6) Chest pain Code(s): R07.9 - CHEST PAIN, UNSPECIFIED (7) Dyspepsia Code(s): K30 - FUNCTIONAL DYSPEPSIA (8) Hyperbilirubinemia Code(s): E80.6 - OTHER DISORDERS OF BILIRUBIN METABOLISM (9) Hypertension Code(s): I10 - ESSENTIAL (PRIMARY) HYPERTENSION (10) Hypothyroidism Code(s): E03.9 - HYPOTHYROIDISM, UNSPECIFIED (11) Shortness of breath Code(s): R06.02 - SHORTNESS OF BREATH (12) Sphincter of Oddi dysfunction Code(s): K83.4 - SPASM OF SPHINCTER OF ODDI (13) Status post THR (total hip replacement) Code(s): Z96.649 - PRESENCE OF UNSPECIFIED ARTIFICIAL HIP JOINT (14) Tobacco use disorder Code(s): Z72.0 - TOBACCO USE (15) Transaminitis Code(s): R74.0 - NONSPEC ELEV OF LEVELS OF TRANSAMNS & LACTIC ACID DEHYDRGNSE (16) Postoperative abdominal pain Code(s): R10.9 - UNSPECIFIED ABDOMINAL PAIN G89.18 - OTHER ACUTE POSTPROCEDURAL PAIN (17) Acute exacerbation of CHF (congestive heart failure) Code(s): I50.9 - HEART FAILURE, UNSPECIFIED (18) Edema Code(s): R60.9 - EDEMA, UNSPECIFIED Qualifiers: Edema type: generalized Qualified Code(s): R60.1 - Generalized edema (19) Lower extremity edema Code(s): R60.0 - LOCALIZED EDEMA Qualifiers: Laterality: bilateral Qualified Code(s): R60.0 - Localized edema (20) Orthopnea Code(s): R06.01 - ORTHOPNEA (21) Pitting edema Code(s): R60.9 - EDEMA, UNSPECIFIED (22) Abdominal pain, diffuse Code(s): R10.84 - GENERALIZED ABDOMINAL PAIN (23) Acute on chronic systolic and diastolic heart failure, NYHA class 3 Code(s): I50.43 - ACUTE ON CHRONIC COMBINED SYSTOLIC AND DIASTOLIC HRT FAIL (24) CHF (congestive heart failure) Code(s): I50.9 - HEART FAILURE, UNSPECIFIED Qualifiers: Congestive heart failure type: unspecified congestive heart failure type Congestive heart failure chronicity: unspecified congestive heart failure chronicity Qualified Code(s): I50.9 - Heart failure, unspecified (25) Cholecystitis without cholelithiasis Code(s): K81.9 - CHOLECYSTITIS, UNSPECIFIED (26) Chronic systolic congestive heart failure Code(s): I50.22 - CHRONIC SYSTOLIC (CONGESTIVE) HEART FAILURE (27) Cirrhosis of liver Code(s): K74.60 - UNSPECIFIED CIRRHOSIS OF LIVER (28) Coronary artery disease Code(s): I25.10 - ATHSCL HEART DISEASE OF [place] CORONARY ARTERY W/O ANG PCTRS (29) Depression Code(s): F32.9 - MAJOR DEPRESSIVE DISORDER, SINGLE EPISODE, UNSPECIFIED (30) Diabetes Code(s): E11.9 - TYPE 2 DIABETES MELLITUS WITHOUT COMPLICATIONS (31) Fatty liver Code(s): K76.0 - FATTY (CHANGE OF) LIVER, NOT ELSEWHERE CLASSIFIED (32) Hyperlipidemia Code(s): E78.5 - HYPERLIPIDEMIA, UNSPECIFIED (33) Hypoalbuminemia Code(s): E88.09 - OTH DISORDERS OF PLASMA-PROTEIN METABOLISM, NEC (34) ICD (implantable cardioverter-defibrillator) in place Code(s): Z95.810 - PRESENCE OF AUTOMATIC (IMPLANTABLE) CARDIAC DEFIBRILLATOR (35) Migraine headache Code(s): G43.909 - MIGRAINE, UNSP, NOT INTRACTABLE, WITHOUT STATUS MIGRAINOSUS (36) Peripheral neuropathy Code(s): G62.9 - POLYNEUROPATHY, UNSPECIFIED (38) Risk for coronary artery disease greater than 20% in next 10 years Code(s): Z91.89 - OTH PERSONAL RISK FACTORS, NOT ELSEWHERE CLASSIFIED (39) Substance abuse Code(s): F19.10 - OTHER PSYCHOACTIVE SUBSTANCE ABUSE, UNCOMPLICATED (40) Systolic heart failure Code(s): I50.20 - UNSPECIFIED SYSTOLIC (CONGESTIVE) HEART FAILURE (41) Autoimmune hepatitis Code(s): K75.4 - AUTOIMMUNE HEPATITIS Assessment/Plan ashd chf systolic s/p aicd htn hld dm s/p mi chronic abdominal pain Plan iv lasix gi eval telemetry r/o MA
[2016-07-23] MEDS: SPIRONOLACTONE 25 MG TABLET (FP) PO SCH (09:33)
[2016-07-23] MEDS: FUROSEMIDE 40 MG TABLET (FP) PO SCH (09:33)
[2016-07-23] MEDS: TAMSULOSIN HCL 0.4 MG CAP.ER.24H (FP) PO SCH (09:33)
[2016-07-23] MEDS: METOPROLOL SUCCINATE 100 MG TAB.SR.24H (FP) PO SCH (09:33)
[2016-07-23] MEDS: ENOXAPARIN NA (PORCINE) 40 MG/0.4 ML DISP.SYRIN SQ SCH (09:34)
[2016-07-23] MEDS: LISINOPRIL 10 MG TABLET (FP) PO SCH (09:34)
[2016-07-23] MEDS ORDERED: amLODIPine BESYLATE 10 MG TABLET (FP) PO SCH (10:00)
[2016-07-23] MEDS ORDERED: POTASSIUM CHLORIDE TABS 20 MEQ TABLET.ER (FP) PO SCH (10:00)
--- NOTE | 2016-07-23 15:35 | CON.GI ---
Consult Consult Specialty:: Gastroenterology Referred by:: Dr. Bayron Ibarra Reason for Consultation:: Abdominal pain - History of Present Illness Chief Complaint: Epigastric and RUQ abdominal pain History of Present Illness: 61W s admitted with worsening lower extremity edema and abdominal pain. The pain is chronic. It is a dull aching pain that does not radiate but does involve her epigastric and RUQ. It is not affected by eating or defecation but is aggravated by lying on her right side. She denies nausea or vomiting. The pain is responsive to antacids. It preceded her lap choly done in 05/[address] Chaudhry. She had a PEG inserted by my associate Dr Louie on 11/08/15 during which time the exam filed to reveal any pathology. She last had a colonoscopy on also with Dr Louie ( see attached reports) which revealed left colon diverticulosis. She Ifelt to have cardiac cirrhosis with jaundice that fluctuates with her heart function. An interoperative cholangiogam doen by Dr Chaudhry raised the question for a distal CBD stricture but this was exclude by CT scan nd obviated the need for an ERCP. She has been found to have an elevated AMILCAR and was referred to Dr Renny San at the [facility] for an opinion. He did not feel that she had autoimmune hepatitis and agreed that liver disease was secondary to congestive hepatopathy. She has severe biventricular heart failure. Her edema has been ascending and now involves the lower abdominal wall. - History Source History Provided By: Patient Limitations to Obtaining History: No Limitations - Past Medical History [employer]IC GENERAL OPERATIONAL TEST: Yes: Peripheral Neuropathy Cardio/Vascular: Yes: CAD (CABG 2003, stents x2, now with defibrillator), CHF, Deep Vein Thrombosis, HTN, Hyperlipdemia, NC (NC in 2003), Mitral Insufficiency , Murmur, Pulmonary Hypertension, Other (profound biventricular failure, AICD device, CABG 2003, subsequent stents) Pulmonary: Yes: COPD Gastrointestinal: Yes: Diverticulosis, Other (Chronic abdominal pain and food intolerances. Had PEG placed 11/03 after suffering vocal cord damage ( EMS intubation). PEG was subsequently removed. ) Hepatobiliary: Yes: Cirrhosis (cardiac cirrhosis), Cholecystitis (s/p lap choly 05/05) Renal/: Yes: Renal Calculi ...: No Psych: Yes: Depression Musculoskeletal: Yes: Chronic low back pain, Osteoarthritis Endocrine: Yes: Hypothyroidism - Past Surgical History Past Surgical History: Yes: AICD, CABG, Cholecystectomy, Colonoscopy, Joint Replacement (right THR), Stent (X2) - Alcohol/Substance Use Hx Alcohol Use: No History of Substance Use: reports: None - Smoking History Smoking history: Current every day smoker Have you smoked in the past 12 months: Yes Aproximately how many cigarettes per day: 5 - Social History Usual Living Arrangement: With Child ADL: Independent 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 History of Recent Travel: No Home Medications - Allergies Allergies/Adverse Reactions: Allergies Allergy/AdvReac Type Severity Reaction Status Date / Time aspirin AdvReac Mild gi upset Verified 07/22/16 12:00 - Home Medications Home Medications: Ambulatory Orders Amlodipine Besylate 10 mg PO DAILY 07/09/16 Atorvastatin Ca [Lipitor] 20 mg PO DAILY 07/09/16 Furosemide 40 mg PO DAILY 07/09/16 Levothyroxine [Synthroid -] 75 mcg PO DAILY 07/09/16 Lisinopril [Prinivil] 20 mg PO DAILY 07/09/16 Metoprolol Succinate [Toprol Xl] 200 mg PO DAILY 07/09/16 Potassium Chloride 20 meq PO DAILY 07/09/16 Tamsulosin HCl [Flomax -] 0.4 mg PO DAILY 07/09/16 Lisinopril 10 mg PO DAILY #30 tablet 07/14/16 Spironolactone [Aldactone -] 25 mg PO DAILY #30 tablet 07/14/16 Family Disease History - Family Disease History Family Disease History: Diabetes: Sister (s/p CABG in her 50s), Heart Disease: Father (had unknown cancer), Mother (lived to ), Sister, [place]: Father Review of Systems - Review of Systems Constitutional: reports: Weakness Eyes: reports: No Symptoms HENT: reports: No Symptoms Neck: reports: No Symptoms Cardiovascular: reports: Palpitations, Shortness of Breath Respiratory: reports: Exercise Intolerance, Orthopnea, SOB on Exertion Gastrointestinal: reports: Abdominal Pain Integumentary: reports: Rash (chest) Neurological: reports: Weakness (due to heavy edematous legs) Physical Exam-GI Vital Signs: Vital Signs Temperature 98 F 07/23/16 08:05 Pulse Rate 77 07/23/16 08:05 Respiratory Rate 18 07/23/16 08:05 Blood Pressure 114/68 07/23/16 08:05 O2 Sat by Pulse Oximetry (%) 96 07/23/16 08:00 CBC,CMP WBC 8.1 K/mm3 (4.0-10.0) 07/23/16 05:45 RBC 4.56 M/mm3 (3.60-5.2) 07/23/16 05:45 Hgb 11.9 GM/dL (10.7-15.3) 07/23/16 05:45 Hct 37.7 % (32.4-45.2) 07/23/16 05:45 MCV 82.6 fl (80-96) 07/23/16 05:45 MCHC 31.6 g/dl (32.0-36.0) L 07/23/16 05:45 RDW 21.1 % (11.6-15.6) H 07/23/16 05:45 Plt Count 197 K/MM3 (134-434) 07/23/16 05:45 MPV 8.3 fl (7.5-11.1) 07/23/16 05:45 Neutrophils % 66.8 % (42.8-82.8) 07/23/16 05:45 Lymphocytes % 16.6 % (8-40) D 07/23/16 05:45 Monocytes % 16.3 % (3.8-10.2) H 07/23/16 05:45 Eosinophils % 0.0 % (0-4.5) 07/23/16 05:45 Basophils % 0.3 % (0-2.0) 07/23/16 05:45 Sodium 140 mmol/L (136-145) 07/23/16 05:45 Potassium 4.0 mmol/L (3.5-5.1) 07/23/16 05:45 Chloride 97 mmol/L (98-107) L 07/23/16 05:45 Carbon Dioxide 34 mmol/L (21-32) H 07/23/16 05:45 Anion Gap 9 (8-16) 07/23/16 05:45 BUN 19 mg/dL (7-18) H 07/23/16 05:45 Creatinine 1.1 mg/dL (0.55-1.02) H D 07/23/16 05:45 Creat Clearance w eGFR 50.17 (>60) 07/23/16 05:45 Random Glucose 64 mg/dL (74-106) L 07/23/16 05:45 Calcium 8.7 mg/dL (8.5-10.1) 07/23/16 05:45 Phosphorus 3.0 mg/dL (2.5-4.9) D 07/23/16 05:45 Magnesium 1.7 mg/dL (1.8-2.4) L 07/23/16 05:45 Total Bilirubin 5.6 mg/dL (0.2-1.0) H 07/23/16 05:45 AST 43 U/L (15-37) H 07/23/16 05:45 ALT 35 U/L (12-78) 07/23/16 05:45 Alkaline Phosphatase 146 U/L (45-117) H 07/23/16 05:45 Creatine Kinase 247 IU/L (26-192) H D 07/22/16 14:55 CK-MB (CK-2) 8.193 ng/ml (0.5-3.6) H 07/22/16 14:55 Troponin I 0.18 ng/ml (0.00-0.05) H 07/22/16 14:55 Total Protein 6.0 g/dl (6.4-8.2) L 07/23/16 05:45 Albumin 2.6 g/dl (3.4-5.0) L 07/23/16 05:45 Lipase 34 U/L (73-393) L 07/22/16 14:55 Current Medications Generic Name Dose Route Start Last Admin Trade Name Freq PRN Reason Stop Dose Admin Amlodipine Besylate 10 mg 07/23/16 10:00 07/23/16 09:33 Norvasc - PO 10 mg DAILY [facility] Administration Atorvastatin Calcium 20 mg 07/23/16 22:00 Lipitor - PO HS [facility] Enoxaparin Sodium 40 mg 07/23/16 10:00 07/23/16 09:34 Lovenox - SQ Not Given DAILY [facility] Furosemide 40 mg 07/23/16 10:00 07/23/16 09:33 Lasix - PO 40 mg DAILY [facility] Administration Guaifenesin 10 ml 07/22/16 17:15 07/23/16 11:43 Robitussin Dm - PO Not Given Q6HPO [facility] Levothyroxine Sodium 75 mcg 07/23/16 07:00 07/23/16 06:13 Synthroid - PO 75 mcg DAILY@0700 [facility] Administration Lisinopril 10 mg 07/23/16 10:00 07/23/16 09:34 Prinivil PO Not Given DAILY [facility] Metoprolol Succinate 200 mg 07/23/16 10:00 07/23/16 09:33 Toprol Xl - PO 200 mg DAILY [facility] Administration Potassium Chloride 20 meq 07/23/16 10:00 07/23/16 09:33 K-Dur - PO 20 meq DAILY [facility] Administration Spironolactone 25 mg 07/23/16 10:00 07/23/16 09:33 Aldactone - PO 25 mg DAILY [facility] Administration Tamsulosin HCl 0.4 mg 07/23/16 10:00 07/23/16 09:33 Flomax - PO 0.4 mg DAILY [facility] Administration Constitutional: Yes: Anxious Eyes: Yes: Conjunctiva Clear HENT: Yes: Normocephalic Neck: Yes: Supple Cardiovascular: Yes: Regular Rate and Rhythm (PPM/AICD), Murmur (2/6 BRITTNY), Other (healed median sternotomy incision) Respiratory: Yes: Dullness (at both bases) Gastrointestinal Inspection: Yes: Distention, Scars (healed lap choly incisions) , Other (lower abdominal wall edema) ...Auscultate: Yes: Normoactive Bowel Sounds ...Palpate: Yes: Soft, Tenderness (RUQ but no peritoneal signs or masses) ...Percussion: Yes: Tympanitic ...Rectal Exam: Yes: Guaiac Negative, Hemorrhoids/External Edema: Yes Edema: LUE: 4+, RUE: 4+ Neurological: Yes: Alert Labs: CBC, BMP 07/23/16 05:45 07/23/16 05:45 INR, PTT INR 1.85 (0.82-1.09) H 07/22/16 13:10 Problem List - Problems (1) Cardiac cirrhosis Code(s): K76.1 - CHRONIC PASSIVE CONGESTION OF LIVER (2) Diverticulosis large intestine w/o perforation or abscess w/bleeding Code(s): K57.31 - DVRTCLOS OF LG INT W/O PERFORATION OR ABSCESS W BLEEDING Assessment/Plan I believe that both Nida's pain and jaundice reflect worsening hepatic congestion secondary to right heart failure as supported by the ascending lower extremity edema extending to the lower abdominal wall. I will get a sonogram to assess the extent of ascites. Her pain and jaundice should improve with cardiac optimization. The sonogram will also screen for a hepatoma.
[2016-07-23] MEDS ORDERED: MAGNESIUM OXIDE 400 MG TABLET (FP) PO ONE (15:41)
--- NOTE | 2016-07-23 16:41 | PN ---
Teaching Attending Note Name of Resident: Salomón Rosa ATTENDING PHYSICIAN STATEMENT I saw and evaluated the patient. I reviewed the resident's note and discussed the case with the resident. I agree with the resident's findings and plan as documented. c/o having an abdominal pain. No nausea or vomiting, no shortness of breath. Vital Signs Temperature 98.3 F 07/23/16 15:42 Pulse Rate 76 07/23/16 15:42 Respiratory Rate 20 07/23/16 15:42 Blood Pressure 132/72 07/23/16 15:42 O2 Sat by Pulse Oximetry (%) 96 07/23/16 08:00 CBCD WBC 8.1 K/mm3 (4.0-10.0) 07/23/16 05:45 RBC 4.56 M/mm3 (3.60-5.2) 07/23/16 05:45 Hgb 11.9 GM/dL (10.7-15.3) 07/23/16 05:45 Hct 37.7 % (32.4-45.2) 07/23/16 05:45 MCV 82.6 fl (80-96) 07/23/16 05:45 MCHC 31.6 g/dl (32.0-36.0) L 07/23/16 05:45 RDW 21.1 % (11.6-15.6) H 07/23/16 05:45 Plt Count 197 K/MM3 (134-434) 07/23/16 05:45 MPV 8.3 fl (7.5-11.1) 07/23/16 05:45 CMP Sodium 140 mmol/L (136-145) 07/23/16 05:45 Potassium 4.0 mmol/L (3.5-5.1) 07/23/16 05:45 Chloride 97 mmol/L (98-107) L 07/23/16 05:45 Carbon Dioxide 34 mmol/L (21-32) H 07/23/16 05:45 Anion Gap 9 (8-16) 07/23/16 05:45 BUN 19 mg/dL (7-18) H 07/23/16 05:45 Creatinine 1.1 mg/dL (0.55-1.02) H D 07/23/16 05:45 Creat Clearance w eGFR 50.17 (>60) 07/23/16 05:45 Random Glucose 64 mg/dL (74-106) L 07/23/16 05:45 Calcium 8.7 mg/dL (8.5-10.1) 07/23/16 05:45 Total Bilirubin 5.6 mg/dL (0.2-1.0) H 07/23/16 05:45 AST 43 U/L (15-37) H 07/23/16 05:45 ALT 35 U/L (12-78) 07/23/16 05:45 Alkaline Phosphatase 146 U/L (45-117) H 07/23/16 05:45 Total Protein 6.0 g/dl (6.4-8.2) L 07/23/16 05:45 Albumin 2.6 g/dl (3.4-5.0) L 07/23/16 05:45 CARDIAC ENZYMES Creatine Kinase 247 IU/L (26-192) H D 07/22/16 14:55 Troponin I 0.18 ng/ml (0.00-0.05) H 07/22/16 14:55 Current Medications Generic Name Dose Route Start Last Admin Trade Name Freq PRN Reason Stop Dose Admin Amlodipine Besylate 10 mg 07/23/16 10:00 07/23/16 09:33 Norvasc - PO 10 mg DAILY [facility] Administration Atorvastatin Calcium 20 mg 07/23/16 22:00 Lipitor - PO HS [facility] Enoxaparin Sodium 40 mg 07/23/16 10:00 07/23/16 09:34 Lovenox - SQ Not Given DAILY [facility] Furosemide 40 mg 07/23/16 10:00 07/23/16 09:33 Lasix - PO 40 mg DAILY [facility] Administration Guaifenesin 10 ml 07/22/16 17:15 07/23/16 11:43 Robitussin Dm - PO Not Given Q6HPO [facility] Levothyroxine Sodium 75 mcg 07/23/16 07:00 07/23/16 06:13 Synthroid - PO 75 mcg DAILY@0700 [facility] Administration Lisinopril 10 mg 07/23/16 10:00 07/23/16 09:34 Prinivil PO Not Given DAILY [facility] Metoprolol Succinate 200 mg 07/23/16 10:00 07/23/16 09:33 Toprol Xl - PO 200 mg DAILY [facility] Administration Potassium Chloride 20 meq 07/23/16 10:00 07/23/16 09:33 K-Dur - PO 20 meq DAILY [facility] Administration Spironolactone 25 mg 07/23/16 10:00 07/23/16 09:33 Aldactone - PO 25 mg DAILY [facility] Administration Tamsulosin HCl 0.4 mg 07/23/16 10:00 07/23/16 09:33 Flomax - PO 0.4 mg DAILY [facility] Administration Home Medications Medication Instructions Recorded Amlodipine Besylate 10 mg PO DAILY 07/09/16 Atorvastatin Ca [Lipitor] 20 mg PO DAILY 07/09/16 Furosemide 40 mg PO DAILY 07/09/16 Levothyroxine [Synthroid -] 75 mcg PO DAILY 07/09/16 Lisinopril [Prinivil] 20 mg PO DAILY 07/09/16 Metoprolol Succinate [Toprol Xl] 200 mg PO DAILY 07/09/16 Potassium Chloride 20 meq PO DAILY 07/09/16 Tamsulosin HCl [Flomax -] 0.4 mg PO DAILY 07/09/16 Lisinopril 10 mg PO DAILY #30 tablet 07/14/16 Spironolactone [Aldactone -] 25 mg PO DAILY #30 tablet 07/14/16 ASSESSMENT AND PLAN: 61 year old female, with a significant past medical history of hypertension, hypercholesterolemia, CAD, [place](X2, s/pp defibrillator/pacemaker and CABG), CHF, DM, kidney stones and peripheral neuropathy, and hypothyroidism, admitted for lethargy and constitutional symptoms # Acute abdominal Pain, GI consult appreciated. As per both Nida's pain and jaundice is from hepatic congestion secondary to right heart failure. US of abdomen is ordered, also to r/o Hepatoma. # Chronic systolic exacerbation oF CHF; Stable at this time, continue metoprolol, lasix , statin, lisinopril # T2DM sliding scale insulin for now as pt has very poor PO intake at this time # Hx of hypothyroidism cont synthroid # Hx of CAD s/p CABG; on atorvastatin 20 mg po qhs continue # Cough most likely due to Liver congestion on Robitussin DM continue DVT proph: lovenox
--- NOTE | 2016-07-23 20:34 | EKG ---
Test Reason : Blood Pressure : / mmHG Vent. Rate : 104 BPM Atrial Rate : 104 BPM P-R Int : 178 ms QRS Dur : 122 ms QT Int : 384 ms P-R-T Axes : 070 089 -09 degrees QTc Int : 504 ms SINUS TACHYCARDIA POSSIBLE LEFT ATRIAL ENLARGEMENT CANNOT RULE OUT ANTERIOR INFARCT (CITED ON OR BEFORE 30-JUN-2015) NONSPECIFIC T WAVE ABNORMALITY INFEROLATERAL LEADS WHEN COMPARED WITH ECG OF 09-JUL-2016 12:18, PREMATURE VENTRICULAR COMPLEXES ARE NO LONGER PRESENT Confirmed by OLVIN LEUNG MD ([id number]) on 07/23/2016 8:34:16 PM Referred By: Confirmed By:OLVIN LEUNG MD
[2016-07-23] MEDS: ATORVASTATIN CA 20 MG TABLET (FP) PO SCH (21:28)
[2016-07-24] MEDS: guaiFENesin/D-METHORPHAN HB 10 ML UNIT-DOSE CUPS PO SCH ×5 (00:10→23:27)
[2016-07-24] MEDS: LEVOTHYROXINE NA 75 MCG TABLET (FP) PO SCH (06:33)
--- NOTE | 2016-07-24 08:55 | PN ---
Teaching Attending Note Name of Resident: Salomón Rosa ATTENDING PHYSICIAN STATEMENT I saw and evaluated the patient. I reviewed the resident's note and discussed the case with the resident. I agree with the resident's findings and plan as documented. Patient has no new complain today. No shortness of breath, no fever or chills. Vital Signs Temperature 98.1 F 07/24/16 08:13 Pulse Rate 62 07/24/16 08:13 Respiratory Rate 20 07/24/16 08:13 Blood Pressure 105/65 07/24/16 08:13 O2 Sat by Pulse Oximetry (%) 96 07/23/16 21:00 CBCD WBC 8.1 K/mm3 (4.0-10.0) 07/23/16 05:45 RBC 4.56 M/mm3 (3.60-5.2) 07/23/16 05:45 Hgb 11.9 GM/dL (10.7-15.3) 07/23/16 05:45 Hct 37.7 % (32.4-45.2) 07/23/16 05:45 MCV 82.6 fl (80-96) 07/23/16 05:45 MCHC 31.6 g/dl (32.0-36.0) L 07/23/16 05:45 RDW 21.1 % (11.6-15.6) H 07/23/16 05:45 Plt Count 197 K/MM3 (134-434) 07/23/16 05:45 MPV 8.3 fl (7.5-11.1) 07/23/16 05:45 CMP Sodium 140 mmol/L (136-145) 07/23/16 05:45 Potassium 4.0 mmol/L (3.5-5.1) 07/23/16 05:45 Chloride 97 mmol/L (98-107) L 07/23/16 05:45 Carbon Dioxide 34 mmol/L (21-32) H 07/23/16 05:45 Anion Gap 9 (8-16) 07/23/16 05:45 BUN 19 mg/dL (7-18) H 07/23/16 05:45 Creatinine 1.1 mg/dL (0.55-1.02) H D 07/23/16 05:45 Creat Clearance w eGFR 50.17 (>60) 07/23/16 05:45 Random Glucose 64 mg/dL (74-106) L 07/23/16 05:45 Calcium 8.7 mg/dL (8.5-10.1) 07/23/16 05:45 Total Bilirubin 5.6 mg/dL (0.2-1.0) H 07/23/16 05:45 AST 43 U/L (15-37) H 07/23/16 05:45 ALT 35 U/L (12-78) 07/23/16 05:45 Alkaline Phosphatase 146 U/L (45-117) H 07/23/16 05:45 Total Protein 6.0 g/dl (6.4-8.2) L 07/23/16 05:45 Albumin 2.6 g/dl (3.4-5.0) L 07/23/16 05:45 CARDIAC ENZYMES Creatine Kinase 247 IU/L (26-192) H D 07/22/16 14:55 Troponin I 0.18 ng/ml (0.00-0.05) H 07/22/16 14:55 Current Medications Generic Name Dose Route Start Last Admin Trade Name Freq PRN Reason Stop Dose Admin Atorvastatin Calcium 20 mg 07/23/16 22:00 07/23/16 21:28 Lipitor - PO Not Given HS [facility] Enoxaparin Sodium 40 mg 07/23/16 10:00 07/23/16 09:34 Lovenox - SQ Not Given DAILY [facility] Furosemide 40 mg 07/23/16 10:00 07/23/16 09:33 Lasix - PO 40 mg DAILY [facility] Administration Guaifenesin 10 ml 07/22/16 17:15 07/24/16 06:10 Robitussin Dm - PO Not Given Q6HPO [facility] Levothyroxine Sodium 75 mcg 07/23/16 07:00 07/24/16 06:33 Synthroid - PO Not Given DAILY@0700 [facility] Lisinopril 10 mg 07/23/16 10:00 07/23/16 09:34 Prinivil PO Not Given DAILY [facility] Metoprolol Succinate 200 mg 07/23/16 10:00 07/23/16 09:33 Toprol Xl - PO 200 mg DAILY [facility] Administration Spironolactone 25 mg 07/23/16 10:00 07/23/16 09:33 Aldactone - PO 25 mg DAILY [facility] Administration Tamsulosin HCl 0.4 mg 07/23/16 10:00 07/23/16 09:33 Flomax - PO 0.4 mg DAILY [facility] Administration Home Medications Medication Instructions Recorded Amlodipine Besylate 10 mg PO DAILY 07/09/16 Atorvastatin Ca [Lipitor] 20 mg PO DAILY 07/09/16 Furosemide 40 mg PO DAILY 07/09/16 Levothyroxine [Synthroid -] 75 mcg PO DAILY 07/09/16 Lisinopril [Prinivil] 20 mg PO DAILY 07/09/16 Metoprolol Succinate [Toprol Xl] 200 mg PO DAILY 07/09/16 Potassium Chloride 20 meq PO DAILY 07/09/16 Tamsulosin HCl [Flomax -] 0.4 mg PO DAILY 07/09/16 Lisinopril 10 mg PO DAILY #30 tablet 07/14/16 Spironolactone [Aldactone -] 25 mg PO DAILY #30 tablet 07/14/16 ASSESSMENT AND PLAN: 61 year old female, with a significant past medical history of hypertension, hypercholesterolemia, CAD, [place](X2, s/pp defibrillator/pacemaker and CABG), CHF, DM, kidney stones and peripheral neuropathy, and hypothyroidism, admitted for lethargy and constitutional symptoms # Acute over chronic abdominal Pain improving , GI consult appreciated. As per both Nida's pain and jaundice is from hepatic congestion secondary to right heart failure. US of abdomen is ordered reviewed Hepatoma is rulled out. # Chronic systolic exacerbation oF CHF; stable at this time, continue metoprolol, lasix , statin, lisinopril, but increased Lower extremity swelling slightly. # T2DM sliding scale insulin for now as pt has very poor PO intake at this time # Hx of hypothyroidism cont synthroid # Hx of CAD s/p CABG; on atorvastatin 20 mg po qhs continue # Cough most likely due to Liver congestion on Robitussin DM continue DVT proph: lovenox
--- NOTE | 2016-07-24 09:40 | PN ---
Physical Exam: SUBJECTIVE: Patient seen and examined feels that she needs oxygen but the nasal cannula is hurting her nose and she has burning sensation in her nose after wearing the oxygen for a long time. says her abdominal pain is always there without exacerbating or alleviating factors. it is better than at admission but has not fully resolved. c/o of itching in her legs and edema. OBJECTIVE: Vital Signs Period Temp Pulse Resp BP Sys/Santoro Pulse Ox Last 24 Hr 97.8 F-98.3 F 62-76 18-20 98-132/42-72 96 GENERAL: The patient is awake, alert, and fully oriented, in no acute distress. ENT: moist mucous membranes. LUNGS: Breath sounds equal, clear to auscultation bilaterally, no wheezes, no crackles, no accessory muscle use. HEART: irregular rhythm, rate controlled, S1, S2 ABDOMEN: Soft, diffusely tender, nondistended, normoactive bowel sounds, no guarding, no rebound, no hepatosplenomegaly, no masses. EXTREMITIES: 2+ pulses, warm, well-perfused, b/l pitting edema 1+ from ankle to knees, ttp throughout lower leg. Active Medications Generic Name Dose Route Start Last Admin Trade Name Freq PRN Reason Stop Dose Admin Atorvastatin Calcium 20 mg 07/23/16 22:00 07/23/16 21:28 Lipitor - PO Not Given HS [facility] Enoxaparin Sodium 40 mg 07/23/16 10:00 07/23/16 09:34 Lovenox - SQ Not Given DAILY [facility] Furosemide 40 mg 07/23/16 10:00 07/23/16 09:33 Lasix - PO 40 mg DAILY [facility] Administration Guaifenesin 10 ml 07/22/16 17:15 07/24/16 06:10 Robitussin Dm - PO Not Given Q6HPO [facility] Levothyroxine Sodium 75 mcg 07/23/16 07:00 07/24/16 06:33 Synthroid - PO Not Given DAILY@0700 [facility] Lisinopril 10 mg 07/23/16 10:00 07/23/16 09:34 Prinivil PO Not Given DAILY [facility] Metoprolol Succinate 200 mg 07/23/16 10:00 07/23/16 09:33 Toprol Xl - PO 200 mg DAILY [facility] Administration Spironolactone 25 mg 07/23/16 10:00 07/23/16 09:33 Aldactone - PO 25 mg DAILY [facility] Administration Tamsulosin HCl 0.4 mg 07/23/16 10:00 07/23/16 09:33 Flomax - PO 0.4 mg DAILY [facility] Administration ASSESSMENT/PLAN: 61 yr old woman with systolic CHF, HTN, HLD, hypothyroidism, s/p pacemaker/ defibrillator, admitted for abdominal pain. #Abdominal pain - as per GI possibly due to hepatic congestion secondary to heart failure; abdominal u/s with normal sized liver without masses, heterogenous echogenicity , mininal ascitis. - tylenol po 500mg, since she has elevated lft's, will give cautiously # CHF- b/l LE edema today - lasix 40mg po daily - aldactone 25mg po daily - cardiology consult Dr. Garcia #Acute kidney injury - likely from poor po intake vs duiretic use - elevated cr and elevated BUN, has CHF will avoid ivf, encourage po - repeat in the morning #CAD - atorvastatin 20 mg po qhs #HTN - controlled - toprol xl 200 mg po daily - lisinopril 10mg po daily #Hypothyroidism - 75 mcg synthroid qdaily #DM - no oral hypoglycemics at home. last HbA1c 03/2016 5.7 - NISS DvT px: lovenox 40mg daily diet: low sodium Visit type - Emergency Visit Emergency Visit: No - New Patient This patient is new to me today: No - Critical Care Critical Care patient: No - Discharge Referral Referred to [facility] No
[2016-07-24] MEDS: TAMSULOSIN HCL 0.4 MG CAP.ER.24H (FP) PO SCH (09:45)
[2016-07-24] MEDS: LISINOPRIL 10 MG TABLET (FP) PO SCH (09:45)
[2016-07-24] MEDS: METOPROLOL SUCCINATE 100 MG TAB.SR.24H (FP) PO SCH (09:45)
[2016-07-24] MEDS: FUROSEMIDE 40 MG TABLET (FP) PO SCH (09:45)
[2016-07-24] MEDS: SPIRONOLACTONE 25 MG TABLET (FP) PO SCH (09:45)
[2016-07-24] MEDS: ENOXAPARIN NA (PORCINE) 40 MG/0.4 ML DISP.SYRIN SQ SCH (09:47)
[2016-07-24] MEDS ORDERED: diphenhydrAMINE HCL 25 MG CAPSULE (FP) PO ONE ×2 (10:30→21:48)
--- NOTE | 2016-07-24 10:44 | PN ---
Progress Note, Physician History of Present Illness: The patient is a 61 year old female, with a significant past medical history of hypertension, hypercholesterolemia, CAD, [place](X2, s/pp defibrillator/pacemaker and CABG), CHF, DM, kidney stones and peripheral neuropathy, and hypothyroidism , who presents to the emergency department complaining of abdominal pain since last night. The patient was recently admitted at [facility] on 07/09/16 for bilateral lower extremity edema and chest pain. Since her discharge on 07/14/16 the patient reports she was feeling better. However, last night she began to experience difficulty breathing and diffuse abdominal pain. The patient reports her abdominal pain is worse below the umbilicus. She reports associated nonproductive cough and chills, but denies fever, headache, or dizziness. The patient reports bilateral lower extremity edema that is part of her baseline, but states that fluid is coming out of her leg. The patient denies any diaphoresis or palpitations. The patient denies nausea, vomiting, diarrhea, or constipation. The patient denies any dysuria, hematuria, frequency, or urgency. - Current Medication List Current Medications: Active Medications Atorvastatin Calcium (Lipitor -) 20 mg PO HS [facility] Last Admin: 07/23/16 21:28 Dose: Not Given Enoxaparin Sodium (Lovenox -) 40 mg SQ DAILY [facility] Last Admin: 07/24/16 09:47 Dose: Not Given Furosemide (Lasix -) 40 mg PO DAILY [facility] Last Admin: 07/24/16 09:45 Dose: 40 mg Guaifenesin (Robitussin Dm -) 10 ml PO Q6HPO [facility] Last Admin: 07/24/16 06:10 Dose: Not Given Levothyroxine Sodium (Synthroid -) 75 mcg PO DAILY@0700 [facility] Last Admin: 07/24/16 06:33 Dose: Not Given Lisinopril (Prinivil) 10 mg PO DAILY [facility] Last Admin: 07/24/16 09:45 Dose: 10 mg Metoprolol Succinate (Toprol Xl -) 200 mg PO DAILY [facility] Last Admin: 07/24/16 09:45 Dose: 200 mg Spironolactone (Aldactone -) 25 mg PO DAILY [facility] Last Admin: 07/24/16 09:45 Dose: 25 mg Tamsulosin HCl (Flomax -) 0.4 mg PO DAILY [facility] Last Admin: 07/24/16 09:45 Dose: 0.4 mg - Objective Vital Signs: Vital Signs Temperature 98.1 F 07/24/16 08:13 Pulse Rate 62 07/24/16 08:13 Respiratory Rate 20 07/24/16 08:13 Blood Pressure 105/65 07/24/16 08:13 O2 Sat by Pulse Oximetry (%) 94 L 07/24/16 08:00 Eyes: Yes: WNL, Conjunctiva Clear, EOM Intact HENT: Yes: WNL, Atraumatic, Normocephalic Neck: Yes: WNL, Supple, Trachea Midline Cardiovascular: Yes: WNL, Regular Rate and Rhythm Respiratory: Yes: WNL, Regular, CTA Bilaterally Gastrointestinal: Yes: WNL, Normal Bowel Sounds Genitourinary: Yes: WNL Musculoskeletal: Yes: WNL Extremities: Yes: WNL Edema: No Integumentary: Yes: WNL Neurological: Yes: WNL, Alert, Oriented ...Motor Strength: WNL Psychiatric: Yes: WNL Labs: CBC, BMP 07/23/16 05:45 07/23/16 05:45 INR, PTT INR 1.85 (0.82-1.09) H 07/22/16 13:10 Problem List - Problems (1) Anasarca Code(s): R60.1 - GENERALIZED EDEMA (2) Abdominal discomfort Code(s): R10.9 - UNSPECIFIED ABDOMINAL PAIN (3) Abdominal pain Code(s): R10.9 - UNSPECIFIED ABDOMINAL PAIN Qualifiers: Abdominal location: generalized Qualified Code(s): R10.84 - Generalized abdominal pain (4) Acute combined systolic and diastolic ACC/AHA stage C congestive heart failure Code(s): I50.41 - ACUTE COMBINED SYSTOLIC AND DIASTOLIC (CONGESTIVE) HRT FAIL (5) CHF (congestive heart failure), NYHA class III Code(s): I50.9 - HEART FAILURE, UNSPECIFIED Qualifiers: Congestive heart failure type: unspecified congestive heart failure type Qualified Code(s): I50.9 - Heart failure, unspecified (6) Chest pain Code(s): R07.9 - CHEST PAIN, UNSPECIFIED (7) Dyspepsia Code(s): K30 - FUNCTIONAL DYSPEPSIA (8) Hyperbilirubinemia Code(s): E80.6 - OTHER DISORDERS OF BILIRUBIN METABOLISM (9) Hypertension Code(s): I10 - ESSENTIAL (PRIMARY) HYPERTENSION (10) Hypothyroidism Code(s): E03.9 - HYPOTHYROIDISM, UNSPECIFIED (11) Shortness of breath Code(s): R06.02 - SHORTNESS OF BREATH (12) Sphincter of Oddi dysfunction Code(s): K83.4 - SPASM OF SPHINCTER OF ODDI (13) Status post THR (total hip replacement) Code(s): Z96.649 - PRESENCE OF UNSPECIFIED ARTIFICIAL HIP JOINT (14) Tobacco use disorder Code(s): Z72.0 - TOBACCO USE (15) Transaminitis Code(s): R74.0 - NONSPEC ELEV OF LEVELS OF TRANSAMNS & LACTIC ACID DEHYDRGNSE (16) Postoperative abdominal pain Code(s): R10.9 - UNSPECIFIED ABDOMINAL PAIN G89.18 - OTHER ACUTE POSTPROCEDURAL PAIN (17) Acute exacerbation of CHF (congestive heart failure) Code(s): I50.9 - HEART FAILURE, UNSPECIFIED (18) Edema Code(s): R60.9 - EDEMA, UNSPECIFIED Qualifiers: Edema type: generalized Qualified Code(s): R60.1 - Generalized edema (19) Lower extremity edema Code(s): R60.0 - LOCALIZED EDEMA Qualifiers: Laterality: bilateral Qualified Code(s): R60.0 - Localized edema (20) Orthopnea Code(s): R06.01 - ORTHOPNEA (21) Pitting edema Code(s): R60.9 - EDEMA, UNSPECIFIED (22) Abdominal pain, diffuse Code(s): R10.84 - GENERALIZED ABDOMINAL PAIN (23) Acute on chronic systolic and diastolic heart failure, NYHA class 3 Code(s): I50.43 - ACUTE ON CHRONIC COMBINED SYSTOLIC AND DIASTOLIC HRT FAIL (24) CHF (congestive heart failure) Code(s): I50.9 - HEART FAILURE, UNSPECIFIED Qualifiers: Congestive heart failure type: unspecified congestive heart failure type Congestive heart failure chronicity: unspecified congestive heart failure chronicity Qualified Code(s): I50.9 - Heart failure, unspecified (25) Cholecystitis without cholelithiasis Code(s): K81.9 - CHOLECYSTITIS, UNSPECIFIED (26) Chronic systolic congestive heart failure Code(s): I50.22 - CHRONIC SYSTOLIC (CONGESTIVE) HEART FAILURE (27) Cirrhosis of liver Code(s): K74.60 - UNSPECIFIED CIRRHOSIS OF LIVER (28) Coronary artery disease Code(s): I25.10 - ATHSCL HEART DISEASE OF [place] CORONARY ARTERY W/O ANG PCTRS (29) Depression Code(s): F32.9 - MAJOR DEPRESSIVE DISORDER, SINGLE EPISODE, UNSPECIFIED (30) Diabetes Code(s): E11.9 - TYPE 2 DIABETES MELLITUS WITHOUT COMPLICATIONS (31) Fatty liver Code(s): K76.0 - FATTY (CHANGE OF) LIVER, NOT ELSEWHERE CLASSIFIED (32) Hyperlipidemia Code(s): E78.5 - HYPERLIPIDEMIA, UNSPECIFIED (33) Hypoalbuminemia Code(s): E88.09 - OTH DISORDERS OF PLASMA-PROTEIN METABOLISM, NEC (34) ICD (implantable cardioverter-defibrillator) in place Code(s): Z95.810 - PRESENCE OF AUTOMATIC (IMPLANTABLE) CARDIAC DEFIBRILLATOR (35) Migraine headache Code(s): G43.909 - MIGRAINE, UNSP, NOT INTRACTABLE, WITHOUT STATUS MIGRAINOSUS (36) Peripheral neuropathy Code(s): G62.9 - POLYNEUROPATHY, UNSPECIFIED (38) Risk for coronary artery disease greater than 20% in next 10 years Code(s): Z91.89 - OTH PERSONAL RISK FACTORS, NOT ELSEWHERE CLASSIFIED (39) Substance abuse Code(s): F19.10 - OTHER PSYCHOACTIVE SUBSTANCE ABUSE, UNCOMPLICATED (40) Systolic heart failure Code(s): I50.20 - UNSPECIFIED SYSTOLIC (CONGESTIVE) HEART FAILURE (41) Autoimmune hepatitis Code(s): K75.4 - AUTOIMMUNE HEPATITIS Assessment/Plan ashd chf systolic s/p aicd htn hld dm s/p mi chronic abdominal pain nsvt Plan iv lasix gi eval telemetry r/o HI
[2016-07-24] MEDS ORDERED: ACETAMINOPHEN 500 MG TABLET (FP) PO ONE (16:41)
[2016-07-24] MEDS ORDERED: CALAMINE 8% TOPICAL LOTION 177 ML BOTTLE TP PRN (21:49)
[2016-07-24] MEDS: ATORVASTATIN CA 20 MG TABLET (FP) PO SCH (21:56)
[2016-07-25] MEDS: guaiFENesin/D-METHORPHAN HB 10 ML UNIT-DOSE CUPS PO SCH ×3 (05:01→17:11)
[2016-07-25] MEDS: LEVOTHYROXINE NA 75 MCG TABLET (FP) PO SCH (06:06)
[2016-07-25 07:52] LABS: CALCIUM 8.6 mg/dL (8.5-10.1); CREATININE 1.1 mg/dL (0.55-1.02)
--- NOTE | 2016-07-25 08:45 | PN ---
Progress Note, Physician Chief Complaint: Pt sitting up at bedside. c/o itchiness of legs that is relieved temporarily by Calamine lotion. Central abdominal chronic nagging pain. No chest pain or dyspnea. History of Present Illness: he patient is a 61 year old black female, with a significant past medical history of hypertension, hypercholesterolemia, CAD, [place](X2, s/pp defibrillator/ pacemaker and CABG), severe systolic CHF, DM, kidney stones and peripheral neuropathy, and hypothyroidism, who presents to the emergency department complaining of abdominal pain since last night. The patient was recently admitted at [facility] on 07/09/16 for bilateral lower extremity edema and chest pain. Since her discharge on 07/14/16 the patient reports she was feeling better. However, last night she began to experience difficulty breathing and diffuse abdominal pain. The patient reports her abdominal pain is worse below the umbilicus. She reports associated nonproductive cough and chills, but denies fever, headache, or dizziness. The patient reports bilateral lower extremity edema that is part of her baseline, but states that fluid is coming out of her leg. The patient denies any diaphoresis or palpitations. The patient denies nausea, vomiting, diarrhea, or constipation. The patient denies any dysuria, hematuria, frequency, or urgency. Allergies: Aspirin Past Surgical History: PEG tube placement, stent placement x2, CABG(2003), ICD/ Pacemaker(11/2014), Cholecystectomy (04/2016) Social History: Current everyday smoker(5 cigarettes per day). Denies alcohol or drug use. PCP: Dr. Ferrer ([phone]) Collating Machine Operator: Dr. Cage Mentally Impaired Teacher: Dr. San ([phone]) - Current Medication List Current Medications: Active Medications Atorvastatin Calcium (Lipitor -) 20 mg PO HS [facility] Last Admin: 07/24/16 21:56 Dose: 20 mg Calamine (Calamine 8% Topical Lotion -) 1 applic TP BID PRN PRN Reason: FOR ITCHING Enoxaparin Sodium (Lovenox -) 40 mg SQ DAILY [facility] Last Admin: 07/24/16 09:47 Dose: Not Given Furosemide (Lasix -) 40 mg PO DAILY [facility] Last Admin: 07/24/16 09:45 Dose: 40 mg Guaifenesin (Robitussin Dm -) 10 ml PO Q6HPO [facility] Last Admin: 07/25/16 05:01 Dose: Not Given Levothyroxine Sodium (Synthroid -) 75 mcg PO DAILY@0700 [facility] Last Admin: 07/25/16 06:06 Dose: Not Given Lisinopril (Prinivil) 10 mg PO DAILY [facility] Last Admin: 07/24/16 09:45 Dose: 10 mg Metoprolol Succinate (Toprol Xl -) 200 mg PO DAILY [facility] Last Admin: 07/24/16 09:45 Dose: 200 mg Spironolactone (Aldactone -) 25 mg PO DAILY [facility] Last Admin: 07/24/16 09:45 Dose: 25 mg Tamsulosin HCl (Flomax -) 0.4 mg PO DAILY [facility] Last Admin: 07/24/16 09:45 Dose: 0.4 mg - Objective Vital Signs: Vital Signs Temperature 98.5 F 07/25/16 07:58 Pulse Rate 70 07/25/16 07:58 Respiratory Rate 18 07/25/16 07:58 Blood Pressure 119/73 07/25/16 07:58 O2 Sat by Pulse Oximetry (%) 96 07/24/16 20:22 Constitutional: Yes: Calm Eyes: Yes: WNL HENT: Yes: WNL Neck: Yes: WNL Cardiovascular: Yes: Pulse Irregular, S2 (split) Respiratory: Yes: Regular Gastrointestinal: Yes: Soft, Distention ...Rectal Exam: Yes: Deferred Genitourinary: No: Anuria Breast(s): Yes: WNL Musculoskeletal: Yes: Muscle Weakness Extremities: Yes: Cool Edema: Yes Edema: LLE: 2+, RLE: 2+ Peripheral Pulses WNL: No Peripheral Pulses: Left Doralis Pedis: 1+, Right Dorsalis Pedis: 1+ Integumentary: Yes: Venous Stasis Changes Neurological: Yes: Alert, Oriented, Unsteady Gait, Weakness Psychiatric: Yes: Alert, Oriented, Other (anxeity) Labs: CBC, BMP 07/23/16 05:45 07/25/16 05:35 INR, PTT INR 1.85 (0.82-1.09) H 07/22/16 13:10 Abnormal Lab Results 07/25/16 05:35 Chloride 96 L Carbon Dioxide 34 H BUN 29 H D Creatinine 1.1 H - ....Imaging Ultrasound: Image Reviewed (abdominal US: bilateral pleural effusion) Problem List - Problems (1) Anasarca Code(s): R60.1 - GENERALIZED EDEMA (2) Cardiac cirrhosis Code(s): K76.1 - CHRONIC PASSIVE CONGESTION OF LIVER (3) Abdominal discomfort Code(s): R10.9 - UNSPECIFIED ABDOMINAL PAIN (4) Acute combined systolic and diastolic ACC/AHA stage C congestive heart failure Assessment/Plan: continue metoprolol, lisinopril, and spironolatone. On furosemide; f/u Is and Os, daily weight, electrolytes, BUN/Cr. Code(s): I50.41 - ACUTE COMBINED SYSTOLIC AND DIASTOLIC (CONGESTIVE) HRT FAIL (5) Dyspepsia Code(s): K30 - FUNCTIONAL DYSPEPSIA (6) Hyperbilirubinemia Code(s): E80.6 - OTHER DISORDERS OF BILIRUBIN METABOLISM (7) Hypertension Code(s): I10 - ESSENTIAL (PRIMARY) HYPERTENSION (8) Hypothyroidism Code(s): E03.9 - HYPOTHYROIDISM, UNSPECIFIED (9) Tobacco use disorder Assessment/Plan: Smoking cessation is critical for pt, but dificult for her to adhere to. Code(s): Z72.0 - TOBACCO USE (10) Lower extremity edema Code(s): R60.0 - LOCALIZED EDEMA Qualifiers: Laterality: bilateral Qualified Code(s): R60.0 - Localized edema (11) Risk for coronary artery disease greater than 20% in next 10 years Code(s): Z91.89 - [facility] PERSONAL RISK FACTORS, NOT ELSEWHERE CLASSIFIED
[2016-07-25] MEDS: LISINOPRIL 10 MG TABLET (FP) PO SCH (09:37)
[2016-07-25] MEDS: TAMSULOSIN HCL 0.4 MG CAP.ER.24H (FP) PO SCH (09:37)
[2016-07-25] MEDS: FUROSEMIDE 40 MG TABLET (FP) PO SCH (09:37)
[2016-07-25] MEDS: SPIRONOLACTONE 25 MG TABLET (FP) PO SCH (09:37)
[2016-07-25] MEDS: METOPROLOL SUCCINATE 100 MG TAB.SR.24H (FP) PO SCH (09:38)
[2016-07-25] MEDS: ENOXAPARIN NA (PORCINE) 40 MG/0.4 ML DISP.SYRIN SQ SCH (09:38)
[2016-07-25] MEDS ORDERED: FUROSEMIDE 40 MG/4 ML INJECTABLE VIAL IVPB ONE ×2 (09:49→17:17)
[2016-07-25] MEDS ORDERED: MINERAL OIL/PETROLAT/WATER TOPICAL CREAM 454 GM JAR TP PRN (11:07)
--- NOTE | 2016-07-25 11:54 | PN ---
Physical Exam: SUBJECTIVE: Patient seen and examined c/o itching of her legs and abdomen. not relieved with benadryl or calamine lotion. she has been experiencing shortness of breath while walking to the bathroom. OBJECTIVE: Vital Signs Period Temp Pulse Resp BP Sys/Santoro Pulse Ox Last 24 Hr 97.3 F-98.5 F 64-70 18-20 94-119/57-73 96-99 GENERAL: The patient is awake, alert, and fully oriented, in no acute distress. ENT: moist mucous membranes. LUNGS: Breath sounds equal, clear to auscultation bilaterally, no wheezes, no crackles, no accessory muscle use. HEART: irregular rhythm, rate controlled, S1, S2 ABDOMEN: firm below umbilicus, diffusely tender, nondistended, normoactive bowel sounds, no guarding, no rebound, EXTREMITIES: 2+ pulses, warm, well-perfused, b/l pitting edema 1+ from ankle to knees, ttp throughout lower legs. Laboratory Results - last 24 hr 07/25/16 05:35 Sodium 140 Potassium 4.1 Chloride 96 L Carbon Dioxide 34 H Anion Gap 10 BUN 29 H D Creatinine 1.1 H Random Glucose 86 D Calcium 8.6 Active Medications Atorvastatin Calcium (Lipitor -) 20 mg PO HS [facility] Last Admin: 07/24/16 21:56 Dose: 20 mg Calamine (Calamine 8% Topical Lotion -) 1 applic TP BID PRN PRN Reason: FOR ITCHING Last Admin: 07/25/16 09:44 Dose: 1 applic Enoxaparin Sodium (Lovenox -) 40 mg SQ DAILY [facility] Last Admin: 07/25/16 09:38 Dose: Not Given Furosemide (Lasix -) 40 mg PO DAILY [facility] Last Admin: 07/25/16 09:37 Dose: 40 mg Guaifenesin (Robitussin Dm -) 10 ml PO Q6HPO [facility] Last Admin: 07/25/16 11:58 Dose: Not Given Levothyroxine Sodium (Synthroid -) 75 mcg PO DAILY@0700 [facility] Last Admin: 07/25/16 06:06 Dose: Not Given Lisinopril (Prinivil) 10 mg PO DAILY [facility] Last Admin: 07/25/16 09:37 Dose: 10 mg Metoprolol Succinate (Toprol Xl -) 200 mg PO DAILY [facility] Last Admin: 07/25/16 09:38 Dose: 200 mg Multi-Ingredient Lotion (Eucerin (Large Jar) -) 1 applic TP DAILY PRN PRN Reason: DRY SKIN Spironolactone (Aldactone -) 25 mg PO DAILY [facility] Last Admin: 07/25/16 09:37 Dose: 25 mg Tamsulosin HCl (Flomax -) 0.4 mg PO DAILY [facility] Last Admin: 07/25/16 09:37 Dose: 0.4 mg ASSESSMENT/PLAN: 61 yr old woman with systolic CHF, HTN, HLD, hypothyroidism, s/p pacemaker/ defibrillator, admitted for abdominal pain. - pruritis - chronic, trial of eucirin cream #Abdominal pain - as per GI possibly due to hepatic congestion secondary to heart failure; abdominal u/s with normal sized liver without masses, heterogenous echogenicity , mininal ascitis - tylenol po 500mg, since she has elevated lft's, will give cautiously # CHF- b/l LE edema today with abdominal edema, pleural effusions on u/s. - lasix 60mg IVPP - aldactone 25mg po daily - cardiology consult Dr. Garcia #Acute kidney injury - likely from poor po intake vs duiretic use, suspicious for cardiorenal as cause of carmenza - repeat in the morning - lasix 60mg iv today #CAD - atorvastatin 20 mg po qhs #HTN - controlled - toprol xl 200 mg po daily - lisinopril 10mg po daily #Hypothyroidism - 75 mcg synthroid qdaily #DM - no oral hypoglycemics at home. last HbA1c 03/2016 5.7, will repeat A1c, if low, will d/c BGM - NISS - has not needed coverage DvT px: lovenox 40mg daily diet: low sodium Visit type - Emergency Visit Emergency Visit: No - New Patient This patient is new to me today: No - Critical Care Critical Care patient: No
--- NOTE | 2016-07-25 17:06 | PN ---
Teaching Attending Note Name of Resident: Salomón Rosa ATTENDING PHYSICIAN STATEMENT I saw and evaluated the patient. I reviewed the resident's note and discussed the case with the resident. I agree with the resident's findings and plan as documented. Patient has no new complains. But increased swelling of lower extremities. Vital Signs Temperature 97.5 F L 07/25/16 14:00 Pulse Rate 67 07/25/16 14:00 Respiratory Rate 18 07/25/16 14:00 Blood Pressure 92/57 07/25/16 14:00 O2 Sat by Pulse Oximetry (%) 99 07/25/16 09:00 CBCD WBC 8.1 K/mm3 (4.0-10.0) 07/23/16 05:45 RBC 4.56 M/mm3 (3.60-5.2) 07/23/16 05:45 Hgb 11.9 GM/dL (10.7-15.3) 07/23/16 05:45 Hct 37.7 % (32.4-45.2) 07/23/16 05:45 MCV 82.6 fl (80-96) 07/23/16 05:45 MCHC 31.6 g/dl (32.0-36.0) L 07/23/16 05:45 RDW 21.1 % (11.6-15.6) H 07/23/16 05:45 Plt Count 197 K/MM3 (134-434) 07/23/16 05:45 MPV 8.3 fl (7.5-11.1) 07/23/16 05:45 CMP Sodium 140 mmol/L (136-145) 07/25/16 05:35 Potassium 4.1 mmol/L (3.5-5.1) 07/25/16 05:35 Chloride 96 mmol/L (98-107) L 07/25/16 05:35 Carbon Dioxide 34 mmol/L (21-32) H 07/25/16 05:35 Anion Gap 10 (8-16) 07/25/16 05:35 BUN 29 mg/dL (7-18) H D 07/25/16 05:35 Creatinine 1.1 mg/dL (0.55-1.02) H 07/25/16 05:35 Creat Clearance w eGFR 50.17 (>60) 07/23/16 05:45 Random Glucose 86 mg/dL (74-106) D 07/25/16 05:35 Calcium 8.6 mg/dL (8.5-10.1) 07/25/16 05:35 Total Bilirubin 5.6 mg/dL (0.2-1.0) H 07/23/16 05:45 AST 43 U/L (15-37) H 07/23/16 05:45 ALT 35 U/L (12-78) 07/23/16 05:45 Alkaline Phosphatase 146 U/L (45-117) H 07/23/16 05:45 Total Protein 6.0 g/dl (6.4-8.2) L 07/23/16 05:45 Albumin 2.6 g/dl (3.4-5.0) L 07/23/16 05:45 CARDIAC ENZYMES Creatine Kinase 247 IU/L (26-192) H D 07/22/16 14:55 Troponin I 0.18 ng/ml (0.00-0.05) H 07/22/16 14:55 Current Medications Generic Name Dose Route Start Last Admin Trade Name Freq PRN Reason Stop Dose Admin Atorvastatin Calcium 20 mg 07/23/16 22:00 07/24/16 21:56 Lipitor - PO 20 mg HS RINA Administration Calamine 1 applic 07/24/16 21:49 07/25/16 09:44 Calamine 8% Topical Lotion - TP 1 applic BID PRN Administration FOR ITCHING Enoxaparin Sodium 40 mg 07/23/16 10:00 07/25/16 09:38 Lovenox - SQ Not Given DAILY RINA Furosemide 40 mg 07/23/16 10:00 07/25/16 09:37 Lasix - PO 40 mg DAILY RINA Administration Guaifenesin 10 ml 07/22/16 17:15 07/25/16 11:58 Robitussin Dm - PO Not Given Q6HPO RINA Levothyroxine Sodium 75 mcg 07/23/16 07:00 07/25/16 06:06 Synthroid - PO Not Given DAILY@0700 RINA Lisinopril 10 mg 07/23/16 10:00 07/25/16 09:37 Prinivil PO 10 mg DAILY RINA Administration Metoprolol Succinate 200 mg 07/23/16 10:00 07/25/16 09:38 Toprol Xl - PO 200 mg DAILY RINA Administration Multi-Ingredient Lotion 1 applic 07/25/16 11:07 Eucerin (Large Jar) - TP DAILY PRN DRY SKIN Spironolactone 25 mg 07/23/16 10:00 07/25/16 09:37 Aldactone - PO 25 mg DAILY RINA Administration Tamsulosin HCl 0.4 mg 07/23/16 10:00 07/25/16 09:37 Flomax - PO 0.4 mg DAILY RINA Administration Home Medications Medication Instructions Recorded Amlodipine Besylate 10 mg PO DAILY 07/09/16 Atorvastatin Ca [Lipitor] 20 mg PO DAILY 07/09/16 Furosemide 40 mg PO DAILY 07/09/16 Levothyroxine [Synthroid -] 75 mcg PO DAILY 07/09/16 Lisinopril [Prinivil] 20 mg PO DAILY 07/09/16 Metoprolol Succinate [Toprol Xl] 200 mg PO DAILY 07/09/16 Potassium Chloride 20 meq PO DAILY 07/09/16 Tamsulosin HCl [Flomax -] 0.4 mg PO DAILY 07/09/16 Lisinopril 10 mg PO DAILY #30 tablet 07/14/16 Spironolactone [Aldactone -] 25 mg PO DAILY #30 tablet 07/14/16 ASSESSMENT AND PLAN: 61 year old female, with a significant past medical history of hypertension, hypercholesterolemia, CAD, [place](X2, s/pp defibrillator/pacemaker and CABG), CHF, DM, kidney stones and peripheral neuropathy, and hypothyroidism, admitted for lethargy and constitutional symptoms # BL lower extremity edema increased. Patient's having low Blood pressure , Discussed with to switch to IV lasix 20mg Bid and decrease Toprol XL to 150mg # Acute over chronic abdominal Pain improving , GI consult appreciated. As per both Nida's pain and jaundice is from hepatic congestion secondary to right heart failure. US of abdomen is ordered reviewed Hepatoma is rulled out. # Chronic systolic exacerbation oF CHF; stable at this time, continue metoprolol, lasix , statin, lisinopril. # T2DM sliding scale insulin for now as pt has very poor PO intake at this time # Hx of hypothyroidism cont synthroid # Hx of CAD s/p CABG; on atorvastatin 20 mg po qhs continue # Cough most likely due to Liver congestion on Robitussin DM continue DVT proph: lovenox
[2016-07-25] MEDS: ATORVASTATIN CA 20 MG TABLET (FP) PO SCH (21:40)
[2016-07-26] MEDS ORDERED: ACETAMINOPHEN 325 MG TABLET (FP) PO ONE (00:07)
[2016-07-26] MEDS ORDERED: ACETAMINOPHEN 325 MG TABLET (FP) ONE (00:12)
[2016-07-26] MEDS: guaiFENesin/D-METHORPHAN HB 10 ML UNIT-DOSE CUPS PO SCH ×4 (00:40→17:23)
[2016-07-26] MEDS ORDERED: FUROSEMIDE 40 MG/4 ML INJECTABLE VIAL IVPUSH SCH (06:00)
[2016-07-26] MEDS: LEVOTHYROXINE NA 75 MCG TABLET (FP) PO SCH (06:24)
--- NOTE | 2016-07-26 07:24 | PN ---
Physical Exam: SUBJECTIVE: Patient seen and examined. c/o feeling short of breath, felt like she needed the nasal cannula while sleeping. itching and abdominal pain is still present, unchanged in intensity. Yesterday evening pt refused IV placement, did not receive IV lasix OBJECTIVE: Vital Signs Period Temp Pulse Resp BP Sys/Santoro Pulse Ox Last 24 Hr 97.0 F-98.6 F 52-73 18-20 92-119/55-83 96-99 GENERAL: The patient is awake, alert, and fully oriented, in no acute distress. EYES: PERRL, extraocular movements intact ENT: oropharynx clear without exudates, moist mucous membranes. nasal cannula in place 2lpm NECK: Trachea midline, full range of motion, supple. LUNGS: Breath sounds equal, clear to auscultation bilaterally, no wheezes, no crackles, no accessory muscle use. HEART: Regular rate and rhythm, S1, S2 without murmur ABDOMEN: firm below umbilicus, diffusely tender with edema, distended, normoactive bowel sounds, EXTREMITIES: 2+ pulses, warm, well-perfused,b/l 2+ edema from foot abdomen, ttp throughout legs. Laboratory Results - last 24 hr 07/25/16 05:35 Sodium 140 Potassium 4.1 Chloride 96 L Carbon Dioxide 34 H Anion Gap 10 BUN 29 H D Creatinine 1.1 H Random Glucose 86 D Calcium 8.6 B-Natriuretic Peptide 1919.31 H Active Medications Atorvastatin Calcium (Lipitor -) 20 mg PO HS [facility] Last Admin: 07/25/16 21:40 Dose: 20 mg Calamine (Calamine 8% Topical Lotion -) 1 applic TP BID PRN PRN Reason: FOR ITCHING Last Admin: 07/25/16 09:44 Dose: 1 applic Enoxaparin Sodium (Lovenox -) 40 mg SQ DAILY [facility] Last Admin: 07/26/16 11:18 Dose: Not Given Furosemide (Lasix Injection -) 40 mg IVPB BID@0600,1400 [facility] Guaifenesin (Robitussin Dm -) 10 ml PO Q6HPO [facility] Last Admin: 07/26/16 17:23 Dose: Not Given Levothyroxine Sodium (Synthroid -) 75 mcg PO DAILY@0700 [facility] Last Admin: 07/26/16 06:24 Dose: 75 mcg Lisinopril (Prinivil) 10 mg PO DAILY [facility] Last Admin: 07/26/16 10:06 Dose: 10 mg Metoprolol Succinate (Toprol Xl -) 150 mg PO DAILY [facility] Last Admin: 07/26/16 10:06 Dose: 150 mg Multi-Ingredient Lotion (Eucerin (Large Jar) -) 1 applic TP DAILY PRN PRN Reason: DRY SKIN Last Admin: 07/25/16 17:11 Dose: 1 applic Spironolactone (Aldactone -) 25 mg PO DAILY [facility] Last Admin: 07/26/16 10:06 Dose: 25 mg Tamsulosin HCl (Flomax -) 0.4 mg PO DAILY [facility] Last Admin: 07/26/16 11:18 Dose: Not Given ASSESSMENT/PLAN: 61 yr old woman with systolic CHF, HTN, HLD, hypothyroidism, s/p pacemaker/ defibrillator, admitted for abdominal pain. - pruritis - chronic, trial of eucirin cream #acute on chronic CHF exacerbation today with increased abdominal edema - lasix IVPB 40mg BID - aldactone 25mg po daily - cardiology consult Dr. Garcia #Abdominal pain - as per GI possibly due to hepatic congestion secondary to heart failure; abdominal u/s with normal sized liver without masses, heterogenous echogenicity , mininal ascitis - now with abdominal wall edema and tenderness #Acute kidney injury - resolved today - repeat in the morning #CAD - atorvastatin 20 mg po qhs #HTN - controlled - toprol xl 200 mg po daily - lisinopril 10mg po daily #Hypothyroidism - 75 mcg synthroid qdaily #DM - no oral hypoglycemics at home. Hba1c 6.6 - NISS - has not needed coverage DvT px: lovenox 40mg daily diet: low sodium Visit type - Emergency Visit Emergency Visit: No - New Patient This patient is new to me today: No - Critical Care Critical Care patient: No
[2016-07-26] MEDS ORDERED: FUROSEMIDE 20 MG TABLET (FP) PO ONE ×2 (07:26→10:15)
[2016-07-26 09:09] LABS: CALCIUM 8.7 mg/dL (8.5-10.1)
[2016-07-26] MEDS: METOPROLOL SUCCINATE 50 MG TAB.SR.24H (FP) PO SCH (10:06)
[2016-07-26] MEDS: SPIRONOLACTONE 25 MG TABLET (FP) PO SCH (10:06)
[2016-07-26] MEDS: LISINOPRIL 10 MG TABLET (FP) PO SCH (10:06)
[2016-07-26] MEDS: ENOXAPARIN NA (PORCINE) 40 MG/0.4 ML DISP.SYRIN SQ SCH (11:18)
[2016-07-26] MEDS: TAMSULOSIN HCL 0.4 MG CAP.ER.24H (FP) PO SCH (11:18)
--- NOTE | 2016-07-26 12:20 | PN ---
Progress Note, Physician History of Present Illness: The patient is a 61 year old female, with a significant past medical history of hypertension, hypercholesterolemia, CAD, [place](X2, s/pp defibrillator/pacemaker and CABG), CHF, DM, kidney stones and peripheral neuropathy, and hypothyroidism , who presents to the emergency department complaining of abdominal pain since last night. The patient was recently admitted at [facility] on 07/09/16 for bilateral lower extremity edema and chest pain. Since her discharge on 07/14/16 the patient reports she was feeling better. However, last night she began to experience difficulty breathing and diffuse abdominal pain. The patient reports her abdominal pain is worse below the umbilicus. She reports associated nonproductive cough and chills, but denies fever, headache, or dizziness. The patient reports bilateral lower extremity edema that is part of her baseline, but states that fluid is coming out of her leg. The patient denies any diaphoresis or palpitations. The patient denies nausea, vomiting, diarrhea, or constipation. The patient denies any dysuria, hematuria, frequency, or urgency. - Current Medication List Current Medications: Active Medications Atorvastatin Calcium (Lipitor -) 20 mg PO HS [facility] Last Admin: 07/25/16 21:40 Dose: 20 mg Calamine (Calamine 8% Topical Lotion -) 1 applic TP BID PRN PRN Reason: FOR ITCHING Last Admin: 07/25/16 09:44 Dose: 1 applic Enoxaparin Sodium (Lovenox -) 40 mg SQ DAILY [facility] Last Admin: 07/26/16 11:18 Dose: Not Given Guaifenesin (Robitussin Dm -) 10 ml PO Q6HPO [facility] Last Admin: 07/26/16 06:09 Dose: Not Given Levothyroxine Sodium (Synthroid -) 75 mcg PO DAILY@0700 [facility] Last Admin: 07/26/16 06:24 Dose: 75 mcg Lisinopril (Prinivil) 10 mg PO DAILY [facility] Last Admin: 07/26/16 10:06 Dose: 10 mg Metoprolol Succinate (Toprol Xl -) 150 mg PO DAILY [facility] Last Admin: 07/26/16 10:06 Dose: 150 mg Multi-Ingredient Lotion (Eucerin (Large Jar) -) 1 applic TP DAILY PRN PRN Reason: DRY SKIN Last Admin: 07/25/16 17:11 Dose: 1 applic Spironolactone (Aldactone -) 25 mg PO DAILY [facility] Last Admin: 07/26/16 10:06 Dose: 25 mg Tamsulosin HCl (Flomax -) 0.4 mg PO DAILY [facility] Last Admin: 07/26/16 11:18 Dose: Not Given - Objective Vital Signs: Vital Signs Temperature 98.7 F 07/26/16 10:00 Pulse Rate 69 07/26/16 10:00 Respiratory Rate 20 07/26/16 10:00 Blood Pressure 102/65 07/26/16 10:00 O2 Sat by Pulse Oximetry (%) 96 07/26/16 09:00 Eyes: Yes: WNL, Conjunctiva Clear, EOM Intact HENT: Yes: WNL, Atraumatic, Normocephalic Neck: Yes: WNL, Supple, Trachea Midline Cardiovascular: Yes: WNL, Regular Rate and Rhythm Respiratory: Yes: WNL, Regular, CTA Bilaterally Gastrointestinal: Yes: WNL, Normal Bowel Sounds Genitourinary: Yes: WNL Musculoskeletal: Yes: WNL Extremities: Yes: WNL Edema: No Edema: LLE: 2+, RLE: 2+ Integumentary: Yes: WNL Neurological: Yes: WNL, Alert, Oriented ...Motor Strength: WNL Psychiatric: Yes: WNL Labs: CBC, BMP 07/23/16 05:45 07/26/16 05:45 INR, PTT INR 1.85 (0.82-1.09) H 07/22/16 13:10 Problem List - Problems (1) Anasarca Code(s): R60.1 - GENERALIZED EDEMA (2) Abdominal discomfort Code(s): R10.9 - UNSPECIFIED ABDOMINAL PAIN (3) Abdominal pain Code(s): R10.9 - UNSPECIFIED ABDOMINAL PAIN Qualifiers: Abdominal location: generalized Qualified Code(s): R10.84 - Generalized abdominal pain (4) Acute combined systolic and diastolic ACC/AHA stage C congestive heart failure Code(s): I50.41 - ACUTE COMBINED SYSTOLIC AND DIASTOLIC (CONGESTIVE) HRT FAIL (5) CHF (congestive heart failure), NYHA class III Code(s): I50.9 - HEART FAILURE, UNSPECIFIED Qualifiers: Congestive heart failure type: unspecified congestive heart failure type Qualified Code(s): I50.9 - Heart failure, unspecified (6) Chest pain Code(s): R07.9 - CHEST PAIN, UNSPECIFIED (7) Dyspepsia Code(s): K30 - FUNCTIONAL DYSPEPSIA (8) Hyperbilirubinemia Code(s): E80.6 - OTHER DISORDERS OF BILIRUBIN METABOLISM (9) Hypertension Code(s): I10 - ESSENTIAL (PRIMARY) HYPERTENSION (10) Hypothyroidism Code(s): E03.9 - HYPOTHYROIDISM, UNSPECIFIED (11) Shortness of breath Code(s): R06.02 - SHORTNESS OF BREATH (12) Sphincter of Oddi dysfunction Code(s): K83.4 - SPASM OF SPHINCTER OF ODDI (13) Status post THR (total hip replacement) Code(s): Z96.649 - PRESENCE OF UNSPECIFIED ARTIFICIAL HIP JOINT (14) Tobacco use disorder Code(s): Z72.0 - TOBACCO USE (15) Transaminitis Code(s): R74.0 - NONSPEC ELEV OF LEVELS OF TRANSAMNS & LACTIC ACID DEHYDRGNSE (16) Postoperative abdominal pain Code(s): R10.9 - UNSPECIFIED ABDOMINAL PAIN G89.18 - OTHER ACUTE POSTPROCEDURAL PAIN (17) Acute exacerbation of CHF (congestive heart failure) Code(s): I50.9 - HEART FAILURE, UNSPECIFIED (18) Edema Code(s): R60.9 - EDEMA, UNSPECIFIED Qualifiers: Edema type: generalized Qualified Code(s): R60.1 - Generalized edema (19) Lower extremity edema Code(s): R60.0 - LOCALIZED EDEMA Qualifiers: Laterality: bilateral Qualified Code(s): R60.0 - Localized edema (20) Orthopnea Code(s): R06.01 - ORTHOPNEA (21) Pitting edema Code(s): R60.9 - EDEMA, UNSPECIFIED (22) Abdominal pain, diffuse Code(s): R10.84 - GENERALIZED ABDOMINAL PAIN (23) Acute on chronic systolic and diastolic heart failure, NYHA class 3 Code(s): I50.43 - ACUTE ON CHRONIC COMBINED SYSTOLIC AND DIASTOLIC HRT FAIL (24) CHF (congestive heart failure) Code(s): I50.9 - HEART FAILURE, UNSPECIFIED Qualifiers: Congestive heart failure type: unspecified congestive heart failure type Congestive heart failure chronicity: unspecified congestive heart failure chronicity Qualified Code(s): I50.9 - Heart failure, unspecified (25) Cholecystitis without cholelithiasis Code(s): K81.9 - CHOLECYSTITIS, UNSPECIFIED (26) Chronic systolic congestive heart failure Code(s): I50.22 - CHRONIC SYSTOLIC (CONGESTIVE) HEART FAILURE (27) Cirrhosis of liver Code(s): K74.60 - UNSPECIFIED CIRRHOSIS OF LIVER (28) Coronary artery disease Code(s): I25.10 - ATHSCL HEART DISEASE OF [place] CORONARY ARTERY W/O ANG PCTRS (29) Depression Code(s): F32.9 - MAJOR DEPRESSIVE DISORDER, SINGLE EPISODE, UNSPECIFIED (30) Diabetes Code(s): E11.9 - TYPE 2 DIABETES MELLITUS WITHOUT COMPLICATIONS (31) Fatty liver Code(s): K76.0 - FATTY (CHANGE OF) LIVER, NOT ELSEWHERE CLASSIFIED (32) Hyperlipidemia Code(s): E78.5 - HYPERLIPIDEMIA, UNSPECIFIED (33) Hypoalbuminemia Code(s): E88.09 - OTH DISORDERS OF PLASMA-PROTEIN METABOLISM, NEC (34) ICD (implantable cardioverter-defibrillator) in place Code(s): Z95.810 - PRESENCE OF AUTOMATIC (IMPLANTABLE) CARDIAC DEFIBRILLATOR (35) Migraine headache Code(s): G43.909 - MIGRAINE, UNSP, NOT INTRACTABLE, WITHOUT STATUS MIGRAINOSUS (36) Peripheral neuropathy Code(s): G62.9 - POLYNEUROPATHY, UNSPECIFIED (38) Risk for coronary artery disease greater than 20% in next 10 years Code(s): Z91.89 - OTH PERSONAL RISK FACTORS, NOT ELSEWHERE CLASSIFIED (39) Substance abuse Code(s): F19.10 - OTHER PSYCHOACTIVE SUBSTANCE ABUSE, UNCOMPLICATED (40) Systolic heart failure Code(s): I50.20 - UNSPECIFIED SYSTOLIC (CONGESTIVE) HEART FAILURE (41) Autoimmune hepatitis Code(s): K75.4 - AUTOIMMUNE HEPATITIS Assessment/Plan - Problems (1) Anasarca Code(s): R60.1 - GENERALIZED EDEMA (2) Cardiac cirrhosis Code(s): K76.1 - CHRONIC PASSIVE CONGESTION OF LIVER (3) Abdominal discomfort Code(s): R10.9 - UNSPECIFIED ABDOMINAL PAIN (4) Acute combined systolic and diastolic ACC/AHA stage C congestive heart failure Assessment/Plan: continue metoprolol, lisinopril, and spironolatone. On furosemide; f/u Is and Os, daily weight, electrolytes, BUN/Cr. Code(s): I50.41 - ACUTE COMBINED SYSTOLIC AND DIASTOLIC (CONGESTIVE) HRT FAIL (5) Dyspepsia Code(s): K30 - FUNCTIONAL DYSPEPSIA (6) Hyperbilirubinemia Code(s): E80.6 - OTHER DISORDERS OF BILIRUBIN METABOLISM (7) Hypertension Code(s): I10 - ESSENTIAL (PRIMARY) HYPERTENSION (8) Hypothyroidism Code(s): E03.9 - HYPOTHYROIDISM, UNSPECIFIED (9) Tobacco use disorder Assessment/Plan: Smoking cessation is critical for pt, but dificult for her to adhere to. Code(s): Z72.0 - TOBACCO USE (10) Lower extremity edema Code(s): R60.0 - LOCALIZED EDEMA Qualifiers: Laterality: bilateral Qualified Code(s): R60.0 - Localized edema (11) Risk for coronary artery disease greater than 20% in next 10 years Code(s): Z91.89 - OTH PERSONAL RISK FACTORS, NOT ELSEWHERE CLASSIFIED
[2016-07-26] MEDS ORDERED: FUROSEMIDE 40 MG/4 ML INJECTABLE VIAL IVPB ONE (16:24)
--- NOTE | 2016-07-26 19:42 | PN ---
Teaching Attending Note Name of Resident: Salomón Rosa ATTENDING PHYSICIAN STATEMENT I saw and evaluated the patient. I reviewed the resident's note and discussed the case with the resident. I agree with the resident's findings and plan as documented. SUBJECTIVE: no fever or chills. cont to have abd pain , no diarrhea . no SOB OBJECTIVE: NAD CV : RRR, no MRG Lungs : bibasilar crackles Ext : 2+ pitting edema ABd : soft, NTTP in all quadrants, nl BS . Abd wall edema ASSESSMENT AND PLAN: 61 year old female, with a significant past medical history of hypertension, hypercholesterolemia, CAD, [place](X2, s/pp defibrillator/pacemaker and CABG), CHF, DM II, kidney stones and peripheral neuropathy, and hypothyroidism, admitted for ABd pain . She developed acute CHF 1- Acute on chronic systolic CHF : cont lasix IV. cont spironolactone and BB 2- ABd pain : generalized, chronic . US with no stones. no diarrhea . possibly due to hepatic capsule distention from CHF monitor 3- LFTS abnormalities. likely due to hepatic congestion with CHF . repeat level d/w Dr. Carnes today 4- DM II : A1c of 6.6 . not requiring SI . can Dc as pt refusing DVT px
[2016-07-26] MEDS: ATORVASTATIN CA 20 MG TABLET (FP) PO SCH (22:41)
[2016-07-26 23:48] LABS: ALBUMIN 2.6 g/dl (3.4-5.0); BILIRUBIN,DIRECT 2.9 mg/dL (0.0-0.2); BILIRUBIN,TOTAL 3.4 mg/dL (0.2-1.0)
[2016-07-27] MEDS: guaiFENesin/D-METHORPHAN HB 10 ML UNIT-DOSE CUPS PO SCH ×4 (00:10→17:04)
[2016-07-27] MEDS: LEVOTHYROXINE NA 75 MCG TABLET (FP) PO SCH ×2 (05:53→05:59)
[2016-07-27] MEDS ORDERED: FUROSEMIDE 100 MG/10 ML INJECTABLE VIAL IVPB SCH (06:00)
[2016-07-27 08:52] LABS: ALBUMIN 2.6 g/dl (3.4-5.0); CALCIUM 8.4 mg/dL (8.5-10.1)
[2016-07-27 08:57] LABS: BILIRUBIN,DIRECT 2.6 mg/dL (0.0-0.2); BILIRUBIN,TOTAL 3.1 mg/dL (0.2-1.0); TOT PROT 6.2 g/dl (6.4-8.2)
[2016-07-27] MEDS: METOPROLOL SUCCINATE 50 MG TAB.SR.24H (FP) PO SCH (09:44)
[2016-07-27] MEDS: TAMSULOSIN HCL 0.4 MG CAP.ER.24H (FP) PO SCH (09:44)
[2016-07-27] MEDS: LISINOPRIL 10 MG TABLET (FP) PO SCH (09:44)
[2016-07-27] MEDS: SPIRONOLACTONE 25 MG TABLET (FP) PO SCH (09:44)
[2016-07-27] MEDS: ENOXAPARIN NA (PORCINE) 40 MG/0.4 ML DISP.SYRIN SQ SCH (09:45)
--- NOTE | 2016-07-27 12:14 | PN ---
Progress Note, Physician Chief Complaint: Pt OOB in chair; PND; No chest pain. Incresae 6 lbs today when weighed. History of Present Illness: he patient is a 61 year old black female, with a significant past medical history of hypertension, hypercholesterolemia, CAD, [place](X2, s/pp defibrillator/ pacemaker and CABG), severe systolic CHF, DM, kidney stones and peripheral neuropathy, and hypothyroidism, who presents to the emergency department complaining of abdominal pain since last night. The patient was recently admitted at [facility] on 07/09/16 for bilateral lower extremity edema and chest pain. Since her discharge on 07/14/16 the patient reports she was feeling better. However, last night she began to experience difficulty breathing and diffuse abdominal pain. The patient reports her abdominal pain is worse below the umbilicus. She reports associated nonproductive cough and chills, but denies fever, headache, or dizziness. The patient reports bilateral lower extremity edema that is part of her baseline, but states that fluid is coming out of her leg. The patient denies any diaphoresis or palpitations. The patient denies nausea, vomiting, diarrhea, or constipation. The patient denies any dysuria, hematuria, frequency, or urgency. Allergies: Aspirin Past Surgical History: PEG tube placement, stent placement x2, CABG(2003), ICD/ Pacemaker(11/2014), Cholecystectomy (04/2016) Social History: Current everyday smoker(5 cigarettes per day). Denies alcohol or drug use. PCP: Dr. Ferrer ([phone]) Collar Cutter: Dr. Cage Supervisor Baking: Dr. San ([phone]) - Current Medication List Current Medications: Active Medications Atorvastatin Calcium (Lipitor -) 20 mg PO HS [facility] Last Admin: 07/26/16 22:41 Dose: 20 mg Calamine (Calamine 8% Topical Lotion -) 1 applic TP BID PRN PRN Reason: FOR ITCHING Last Admin: 07/25/16 09:44 Dose: 1 applic Enoxaparin Sodium (Lovenox -) 40 mg SQ DAILY [facility] Last Admin: 07/27/16 09:45 Dose: Not Given Furosemide (Lasix Injection -) 60 mg IVPB BID@0600,1400 [facility] Guaifenesin (Robitussin Dm -) 10 ml PO Q6HPO [facility] Last Admin: 07/27/16 05:52 Dose: 10 ml Levothyroxine Sodium (Synthroid -) 75 mcg PO DAILY@0700 [facility] Last Admin: 07/27/16 05:59 Dose: Not Given Lisinopril (Prinivil) 10 mg PO DAILY [facility] Last Admin: 07/27/16 09:44 Dose: 10 mg Metoprolol Succinate (Toprol Xl -) 150 mg PO DAILY [facility] Last Admin: 07/27/16 09:44 Dose: 150 mg Multi-Ingredient Lotion (Eucerin (Large Jar) -) 1 applic TP DAILY PRN PRN Reason: DRY SKIN Last Admin: 07/25/16 17:11 Dose: 1 applic Spironolactone (Aldactone -) 25 mg PO DAILY [facility] Last Admin: 07/27/16 09:44 Dose: 25 mg Tamsulosin HCl (Flomax -) 0.4 mg PO DAILY [facility] Last Admin: 07/27/16 09:44 Dose: 0.4 mg - Objective Vital Signs: Vital Signs Temperature 97.7 F 07/27/16 05:00 Pulse Rate 66 07/27/16 05:00 Respiratory Rate 20 07/27/16 05:00 Blood Pressure 100/57 07/27/16 05:00 O2 Sat by Pulse Oximetry (%) 98 07/26/16 21:00 Constitutional: Yes: Calm Eyes: Yes: WNL HENT: Yes: WNL Neck: Yes: WNL Cardiovascular: Yes: Pulse Irregular Respiratory: Yes: Diminished Gastrointestinal: Yes: Soft, Tenderness, Epigastrium (mild; chronic) ...Rectal Exam: Yes: Deferred Genitourinary: No: Anuria Breast(s): Yes: WNL Musculoskeletal: Yes: Muscle Weakness Extremities: Yes: Cool Edema: Yes Edema: LLE: 2+, RLE: 2+ Peripheral Pulses WNL: No Peripheral Pulses: Left Doralis Pedis: 1+, Right Dorsalis Pedis: 1+ Integumentary: Yes: Venous Stasis Changes Neurological: Yes: Alert, Oriented, Weakness Psychiatric: Yes: Alert, Oriented Labs: CBC, BMP 07/23/16 05:45 07/27/16 05:37 INR, PTT INR 1.85 (0.82-1.09) H 07/22/16 13:10 - ....Imaging Chest X-ray: Pending Problem List - Problems (1) Anasarca Code(s): R60.1 - GENERALIZED EDEMA (2) Cardiac cirrhosis Code(s): K76.1 - CHRONIC PASSIVE CONGESTION OF LIVER (3) Abdominal discomfort Code(s): R10.9 - UNSPECIFIED ABDOMINAL PAIN (4) Acute combined systolic and diastolic ACC/AHA stage C congestive heart failure Assessment/Plan: CXR PA and Lat. Telemetry: NSR; occasional paced rhythm; brief runs of NSVT. continue metoprolol (dose decresaed due to hypotension; increase to 200 mg daily if BP tolerates in the future) lisinopril, and spironolatone. On furosemide IV; dose increased today; f/u Is and Os, daily weight, electrolytes, BUN/Cr. F/u magnesium (1.7 on 07/25/16). Code(s): I50.41 - ACUTE COMBINED SYSTOLIC AND DIASTOLIC (CONGESTIVE) HRT FAIL (5) Dyspepsia Code(s): K30 - FUNCTIONAL DYSPEPSIA (6) Hyperbilirubinemia Code(s): E80.6 - OTHER DISORDERS OF BILIRUBIN METABOLISM (7) Hypertension Code(s): I10 - ESSENTIAL (PRIMARY) HYPERTENSION (8) Hypothyroidism Code(s): E03.9 - HYPOTHYROIDISM, UNSPECIFIED (9) Tobacco use disorder Code(s): Z72.0 - TOBACCO USE (10) Lower extremity edema Code(s): R60.0 - LOCALIZED EDEMA Qualifiers: Qualified Code(s): R60.0 - Localized edema (11) Risk for coronary artery disease greater than 20% in next 10 years Code(s): Z91.89 - [facility] PERSONAL RISK FACTORS, NOT ELSEWHERE CLASSIFIED
[2016-07-27 12:27] LABS: MAGNESIUM 1.9 mg/dL (1.8-2.4)
[2016-07-27] MEDS: FUROSEMIDE 100 MG/10 ML INJECTABLE VIAL IVPB SCH (14:10)
--- NOTE | 2016-07-27 15:50 | PN ---
Teaching Attending Note Name of Resident: Salomón Rosa (tera) ATTENDING PHYSICIAN STATEMENT I saw and evaluated the patient. I reviewed the resident's note and discussed the case with the resident. I agree with the resident's findings and plan as documented. SUBJECTIVE: Cont to have abd pain , especially now in the Lower abd omen . has itching in Legs . No SOB OBJECTIVE: NAD CV : RRR, no MRG Lungs : clear lungs today , good air entry . Ext : 2+ pitting edema ABd : soft, TTP in all quadrants, nl BS . Abd wall edema ASSESSMENT AND PLAN: 61 year old female, with a significant past medical history of hypertension, hypercholesterolemia, CAD, [place](X2, s/pp defibrillator/pacemaker and CABG), CHF, DM II, kidney stones and peripheral neuropathy, and hypothyroidism, admitted for ABd pain . She developed acute CHF 1- Acute on chronic systolic CHF : weight has increased and edema has increased. - increase IV lasix to 60 BID - cont Aldactone - cont BB 2- ABd pain : generalized, chronic, now worse with abd wall edema and liver capsule stretch from heart failure - monitor with diuresis 3- LFTS abnormalities. likely due to hepatic congestion with CHF . level improved . cont to monitor . 4- DM II : A1c of 6.6 did not require Insulin DVT px
[2016-07-27] MEDS: ATORVASTATIN CA 20 MG TABLET (FP) PO SCH (21:21)
--- NOTE | 2016-07-27 22:15 | PN ---
Physical Exam: SUBJECTIVE: Patient seen and examined c/o shortness of breath requirig nasal cannula, abdominal pain and leg edema. gained weight today compared to yesterday. eucerin cream is not helping with the itching. OBJECTIVE: Vital Signs Period Temp Pulse Resp BP Sys/Santoro Pulse Ox Last 24 Hr 97.5 F-97.8 F 57-66 20-22 93-124/57-76 66-97 GENERAL: The patient is awake, alert, and fully oriented, in no acute distress. EYES: PERRL, extraocular movements intact ENT: oropharynx clear without exudates, moist mucous membranes. nasal cannula in place 2lpm NECK: Trachea midline, full range of motion, supple. LUNGS: Breath sounds equal, clear to auscultation bilaterally, no wheezes, no crackles, no accessory muscle use. HEART: Regular rate and rhythm, S1, S2 without murmur ABDOMEN: firm below umbilicus, diffusely tender with pitting edema, distended, EXTREMITIES: 2+ pulses, warm, dry skin, well-perfused, b/l 2+ edema from foot abdomen, ttp throughout legs. Laboratory Results - last 24 hr 07/26/16 07/27/16 07/27/16 05:45 05:37 05:37 Sodium 140 Potassium 4.8 Chloride 97 L Carbon Dioxide 33 H Anion Gap 10 BUN 23 H Creatinine 1.0 POC Glucometer Random Glucose 71 L Calcium 8.4 L Magnesium 1.9 Cancelled Total Bilirubin 3.4 H D 3.1 H Direct Bilirubin 2.9 H 2.6 H AST 46 H 40 H ALT 34 30 Alkaline Phosphatase 175 H 168 H Total Protein 6.0 L 6.2 L Albumin 2.6 L 2.6 L 07/27/16 12:08 Sodium Potassium Chloride Carbon Dioxide Anion Gap BUN Creatinine POC Glucometer 93 Random Glucose Calcium Magnesium Total Bilirubin Direct Bilirubin AST ALT Alkaline Phosphatase Total Protein Albumin Active Medications Generic Name Dose Route Start Last Admin Trade Name Freq PRN Reason Stop Dose Admin Atorvastatin Calcium 20 mg 07/23/16 22:00 07/27/16 21:21 Lipitor - PO 20 mg HS RINA Administration Calamine 1 applic 07/24/16 21:49 07/25/16 09:44 Calamine 8% Topical Lotion - TP 1 applic BID PRN Administration FOR ITCHING Enoxaparin Sodium 40 mg 07/23/16 10:00 07/27/16 09:45 Lovenox - SQ Not Given DAILY [facility] Furosemide 60 mg 07/27/16 14:00 07/27/16 14:10 Lasix Injection - IVPB 60 mg BID@0600,1400 [facility] Administration Guaifenesin 10 ml 07/22/16 17:15 07/27/16 17:04 Robitussin Dm - PO Not Given Q6HPO [facility] Levothyroxine Sodium 75 mcg 07/23/16 07:00 07/27/16 05:59 Synthroid - PO Not Given DAILY@0700 [facility] Lisinopril 10 mg 07/23/16 10:00 07/27/16 09:44 Prinivil PO 10 mg DAILY [facility] Administration Metoprolol Succinate 150 mg 07/26/16 10:00 07/27/16 09:44 Toprol Xl - PO 150 mg DAILY [facility] Administration Multi-Ingredient Lotion 1 applic 07/25/16 11:07 07/25/16 17:11 Eucerin (Large Jar) - TP 1 applic DAILY PRN Administration DRY SKIN Spironolactone 25 mg 07/23/16 10:00 07/27/16 09:44 Aldactone - PO 25 mg DAILY [facility] Administration Tamsulosin HCl 0.4 mg 07/23/16 10:00 07/27/16 09:44 Flomax - PO 0.4 mg DAILY [facility]INA Administration ASSESSMET/PLAN: 61 yr old woman with systolic CHF, HTN, HLD, hypothyroidism, s/p pacemaker/ defibrillator, admitted for abdominal pain. - pruritis - chronic, likely due to edema - Lft's trending down, likely secondary to CHf causing hepatic congestion #acute on chronic CHF exacerbation today with increased abdominal edema and increased weight, needs more diuresis - lasix IVPB 60mg BID - aldactone 25mg po daily - cardiology consult Dr. Garcia #Abdominal pain - as per GI possibly due to hepatic congestion secondary to heart failure; abdominal u/s with normal sized liver without masses, heterogenous echogenicity , mininal ascitis - now with abdominal wall edema and tenderness #CAD - atorvastatin 20 mg po qhs #HTN - controlled - toprol xl 150 mg po daily changed 07/25, as pt has low BP at times - lisinopril 10mg po daily ( home dose is now 10mg, at previous discharge she was dose adjusted to 10mg from 20mg for low BP) #Hypothyroidism - 75 mcg synthroid qdaily #DM - no oral hypoglycemics at home. Hba1c 6.6, diet controlled - NISS dc'ed due to not needing coverage DvT px: lovenox 40mg daily diet: low sodium Visit type - Emergency Visit Emergency Visit: No - New Patient This patient is new to me today: No - Critical Care Critical Care patient: No - Discharge Referral Referred to [facility] No
[2016-07-28] MEDS: guaiFENesin/D-METHORPHAN HB 10 ML UNIT-DOSE CUPS PO SCH ×4 (00:10→17:38)
[2016-07-28] MEDS: FUROSEMIDE 100 MG/10 ML INJECTABLE VIAL IVPB SCH ×2 (06:11→13:40)
[2016-07-28] MEDS: LEVOTHYROXINE NA 75 MCG TABLET (FP) PO SCH (06:13)
[2016-07-28] MEDS: METOPROLOL SUCCINATE 50 MG TAB.SR.24H (FP) PO SCH (09:25)
[2016-07-28] MEDS: TAMSULOSIN HCL 0.4 MG CAP.ER.24H (FP) PO SCH (09:25)
[2016-07-28] MEDS: SPIRONOLACTONE 25 MG TABLET (FP) PO SCH (09:25)
[2016-07-28] MEDS: LISINOPRIL 10 MG TABLET (FP) PO SCH (09:25)
[2016-07-28] MEDS: ENOXAPARIN NA (PORCINE) 40 MG/0.4 ML DISP.SYRIN SQ SCH (09:26)
--- NOTE | 2016-07-28 14:46 | PN ---
Progress Note, Physician Chief Complaint: Pt OOB in chair; PND; No chest pain or dyspnea. c/o right ankle pain after walking down hallway last night. History of Present Illness: he patient is a 61 year old black female, with a significant past medical history of hypertension, hypercholesterolemia, CAD, [place](X2, s/pp defibrillator/ pacemaker and CABG), severe systolic CHF, DM, kidney stones and peripheral neuropathy, and hypothyroidism, who presents to the emergency department complaining of abdominal pain since last night. The patient was recently admitted at [facility] on 07/09/16 for bilateral lower extremity edema and chest pain. Since her discharge on 07/14/16 the patient reports she was feeling better. However, last night she began to experience difficulty breathing and diffuse abdominal pain. The patient reports her abdominal pain is worse below the umbilicus. She reports associated nonproductive cough and chills, but denies fever, headache, or dizziness. The patient reports bilateral lower extremity edema that is part of her baseline, but states that fluid is coming out of her leg. The patient denies any diaphoresis or palpitations. The patient denies nausea, vomiting, diarrhea, or constipation. The patient denies any dysuria, hematuria, frequency, or urgency. Allergies: Aspirin Past Surgical History: PEG tube placement, stent placement x2, CABG(2003), ICD/ Pacemaker(11/2014), Cholecystectomy (04/2016) Social History: Current everyday smoker(5 cigarettes per day). Denies alcohol or drug use. PCP: Dr. Ferrer ([phone]) Assistant Property Manager: Dr. Cage Serials Librarian: Dr. San ([phone]) - Current Medication List Current Medications: Active Medications Atorvastatin Calcium (Lipitor -) 20 mg PO HS ON LICENSE OF [facility] Last Admin: 07/27/16 21:21 Dose: 20 mg Calamine (Calamine 8% Topical Lotion -) 1 applic TP BID PRN PRN Reason: FOR ITCHING Last Admin: 07/25/16 09:44 Dose: 1 applic Enoxaparin Sodium (Lovenox -) 40 mg SQ DAILY ON LICENSE OF [facility] Last Admin: 07/28/16 09:26 Dose: Not Given Furosemide (Lasix Injection -) 60 mg IVPB BID@0600,1400 ON LICENSE OF [facility] Last Admin: 07/28/16 13:40 Dose: 60 mg Guaifenesin (Robitussin Dm -) 10 ml PO Q6HPO ON LICENSE OF [facility] Last Admin: 07/28/16 11:23 Dose: Not Given Levothyroxine Sodium (Synthroid -) 75 mcg PO DAILY@0700 ON LICENSE OF [facility] Last Admin: 07/28/16 06:13 Dose: 75 mcg Lisinopril (Prinivil) 10 mg PO DAILY ON LICENSE OF [facility] Last Admin: 07/28/16 09:25 Dose: 10 mg Metoprolol Succinate (Toprol Xl -) 150 mg PO DAILY ON LICENSE OF [facility] Last Admin: 07/28/16 09:25 Dose: 150 mg Multi-Ingredient Lotion (Eucerin (Large Jar) -) 1 applic TP DAILY PRN PRN Reason: DRY SKIN Last Admin: 07/25/16 17:11 Dose: 1 applic Spironolactone (Aldactone -) 25 mg PO DAILY ON LICENSE OF [facility] Last Admin: 07/28/16 09:25 Dose: 25 mg Tamsulosin HCl (Flomax -) 0.4 mg PO DAILY ON LICENSE OF [facility] Last Admin: 07/28/16 09:25 Dose: 0.4 mg - Objective Vital Signs: Vital Signs Temperature 97.9 F 07/28/16 14:00 Pulse Rate 65 07/28/16 14:00 Respiratory Rate 20 07/28/16 14:00 Blood Pressure 103/70 07/28/16 14:00 O2 Sat by Pulse Oximetry (%) 95 07/28/16 09:00 Constitutional: Yes: Anxious Eyes: Yes: WNL HENT: Yes: WNL Neck: Yes: Other Cardiovascular: Yes: Pulse Irregular Respiratory: Yes: Diminished Gastrointestinal: Yes: Soft ...Rectal Exam: Yes: Deferred Genitourinary: No: Anuria Breast(s): Yes: WNL Musculoskeletal: Yes: Joint Swelling, Muscle Weakness Extremities: Yes: Cool Edema: Yes Edema: LLE: 3+, RLE: 3+ Peripheral Pulses WNL: No Peripheral Pulses: Left Doralis Pedis: 1+, Right Dorsalis Pedis: 1+ Integumentary: Yes: Venous Stasis Changes Neurological: Yes: Alert, Oriented, Weakness Psychiatric: Yes: WNL, Alert, Oriented Labs: CBC, BMP 07/23/16 05:45 07/27/16 05:37 INR, PTT INR 1.85 (0.82-1.09) H 07/22/16 13:10 - ....Imaging Chest X-ray: Image Reviewed (large bilateral pleural effusions and moderate infiltrate) Problem List - Problems (1) Anasarca Code(s): R60.1 - GENERALIZED EDEMA (2) Cardiac cirrhosis Code(s): K76.1 - CHRONIC PASSIVE CONGESTION OF LIVER (3) Abdominal discomfort Code(s): R10.9 - UNSPECIFIED ABDOMINAL PAIN (4) Acute combined systolic and diastolic ACC/AHA stage C congestive heart failure Assessment/Plan: Now on IV furosemide; f/u Is and os. Pt again cautioned on taking in too much oral fluid. She says she only eats ice chips. continue metoprolol (dose decreased due to hypotension; increase to 200 mg daily if BP tolerates in the future) lisinopril, and spironolatone. F/u electrolytes (WNL yesterday). Code(s): I50.41 - ACUTE COMBINED SYSTOLIC AND DIASTOLIC (CONGESTIVE) HRT FAIL (5) Dyspepsia Code(s): K30 - FUNCTIONAL DYSPEPSIA (6) Hyperbilirubinemia Code(s): E80.6 - OTHER DISORDERS OF BILIRUBIN METABOLISM (7) Hypertension Code(s): I10 - ESSENTIAL (PRIMARY) HYPERTENSION (8) Hypothyroidism Code(s): E03.9 - HYPOTHYROIDISM, UNSPECIFIED (9) Tobacco use disorder Code(s): Z72.0 - TOBACCO USE (10) Lower extremity edema Code(s): R60.0 - LOCALIZED EDEMA Qualifiers: Qualified Code(s): R60.0 - Localized edema (11) Risk for coronary artery disease greater than 20% in next 10 years Code(s): Z91.89 - OT PERSONAL RISK FACTORS, NOT ELSEWHERE CLASSIFIED
--- NOTE | 2016-07-28 18:13 | PN ---
Physical Exam: SUBJECTIVE: Patient seen and examined at bedside no complaints OBJECTIVE: Vital Signs Period Temp Pulse Resp BP Sys/Santoro Pulse Ox Last 24 Hr 97.7 F-98.4 F 65-66 20-20 101-108/61-76 66-95 GENERAL: The patient is awake and alert EYES: PERRL ENT: moist mucous membranes. NECK: supple. LUNGS: CTAB HEART: Regular rate and rhythm ABDOMEN: Soft, slightly tender to palpation EXTREMITIES: 2+ pitting edema up to umbilicus NEUROLOGICAL: Cranial nerves II through XII grossly intact. Active Medications Generic Name Dose Route Start Last Admin Trade Name Freq PRN Reason Stop Dose Admin Atorvastatin Calcium 20 mg 07/23/16 22:00 07/27/16 21:21 Lipitor - PO 20 mg HS RINA Administration Calamine 1 applic 07/24/16 21:49 07/25/16 09:44 Calamine 8% Topical Lotion - TP 1 applic BID PRN Administration FOR ITCHING Enoxaparin Sodium 40 mg 07/23/16 10:00 07/28/16 09:26 Lovenox - SQ Not Given DAILY [facility] Furosemide 60 mg 07/27/16 14:00 07/28/16 13:40 Lasix Injection - IVPB 60 mg BID@0600,1400 [facility] Administration Guaifenesin 10 ml 07/22/16 17:15 07/28/16 17:38 Robitussin Dm - PO Not Given Q6HPO [facility] Levothyroxine Sodium 75 mcg 07/23/16 07:00 07/28/16 06:13 Synthroid - PO 75 mcg DAILY@0700 [facility] Administration Lisinopril 10 mg 07/23/16 10:00 07/28/16 09:25 Prinivil PO 10 mg DAILY [facility] Administration Metoprolol Succinate 150 mg 07/26/16 10:00 07/28/16 09:25 Toprol Xl - PO 150 mg DAILY [facility] Administration Multi-Ingredient Lotion 1 applic 07/25/16 11:07 07/25/16 17:11 Eucerin (Large Jar) - TP 1 applic DAILY PRN Administration DRY SKIN Spironolactone 25 mg 07/23/16 10:00 07/28/16 09:25 Aldactone - PO 25 mg DAILY [facility] Administration Tamsulosin HCl 0.4 mg 07/23/16 10:00 07/28/16 09:25 Flomax - PO 0.4 mg DAILY [facility] Administration ASSESSMENT/PLAN: 61F systolic CHF, HTN, HLD, hypothyroidism, s/p pacemaker/defibrillator, admitted for abdominal pain. Acute on chronic systolic CHF exacerbation continue lasix IVPB 60mg BID continue aldactone 25mg po daily cardiology consult appreciated one liter fluid restriction down 2Kg today continue trend daily weights continue to trend I/O Transaminitiis/Abdominal pain likely secondary to hepatic congestion from CHF. states she saw dr. lugo at [facility] who is a elevator erector and he did lab work and told her she was fine. CAD/HLD - atorvastatin 20 mg po qhs HTN Well controlled at this time Continue metoprolol and lisinopril Hypothyroidism continue 75 mcg synthroid qam DM -not on meds at home HbA1C 6.6 outpt follow up FEN: fluid restriction trend lytes sodium restricted diet PPx: lovenox patient is ambulating Visit type - Emergency Visit Emergency Visit: Yes ED Registration Date: 07/22/16 Care time: The patient presented to the Emergency Department on the above date and was hospitalized for further evaluation of their emergent condition. - New Patient This patient is new to me today: Yes Date on this admission: 07/28/16 - Critical Care Critical Care patient: No
--- NOTE | 2016-07-28 19:07 | PN ---
Teaching Attending Note Name of Resident: Cristofer Mckeon ATTENDING PHYSICIAN STATEMENT I saw and evaluated the patient. I reviewed the resident's note and discussed the case with the resident. I agree with the resident's findings and plan as documented. SUBJECTIVE: no fever or chills . abd pain . no SOB OBJ : NAD CV : RRR, no MRG Lungs : clear lungs , good air entry . Ext : 2+ pitting edema ABd : soft, TTP in all quadrants, nl BS . Abd wall edema ASSESSMENT AND PLAN: 61 year old female, with a significant past medical history of hypertension, hypercholesterolemia, CAD, [place](X2, s/pp defibrillator/pacemaker and CABG), CHF, DM II, kidney stones and peripheral neuropathy, and hypothyroidism, admitted for ABd pain . She developed acute CHF 1- Acute on chronic systolic CHF : weight has increased and edema has increased. - cont lasix 60 BID - cont Aldactone - cont BB 2- ABd pain : generalized, chronic, now worse with abd wall edema and liver capsule stretch from heart failure - monitor with diuresis 3- LFTS abnormalities. likely due to hepatic congestion with CHF . level improved . cont to monitor . 4- DM II : A1c of 6.6 did not require Insulin DVT px
[2016-07-28] MEDS: ATORVASTATIN CA 20 MG TABLET (FP) PO SCH (21:30)
--- NOTE | 2016-07-29 08:37 | PN ---
Progress Note, Physician Chief Complaint: Will not speak to me, similar to prior coverage experiences with her. Stares into distance, ignores my questions TELE: NSR,Sinus octavio with artifact - Current Medication List Current Medications: Active Medications Atorvastatin Calcium (Lipitor -) 20 mg PO HS [facility] Last Admin: 07/28/16 21:30 Dose: 20 mg Calamine (Calamine 8% Topical Lotion -) 1 applic TP BID PRN PRN Reason: FOR ITCHING Last Admin: 07/25/16 09:44 Dose: 1 applic Enoxaparin Sodium (Lovenox -) 40 mg SQ DAILY [facility] Last Admin: 07/28/16 09:26 Dose: Not Given Furosemide (Lasix Injection -) 60 mg IVPB BID@0600,1400 [facility] Last Admin: 07/28/16 13:40 Dose: 60 mg Guaifenesin (Robitussin Dm -) 10 ml PO Q6HPO [facility] Last Admin: 07/28/16 17:38 Dose: Not Given Levothyroxine Sodium (Synthroid -) 75 mcg PO DAILY@0700 [facility] Last Admin: 07/28/16 06:13 Dose: 75 mcg Lisinopril (Prinivil) 10 mg PO DAILY [facility] Last Admin: 07/28/16 09:25 Dose: 10 mg Metoprolol Succinate (Toprol Xl -) 150 mg PO DAILY [facility] Last Admin: 07/28/16 09:25 Dose: 150 mg Multi-Ingredient Lotion (Eucerin (Large Jar) -) 1 applic TP DAILY PRN PRN Reason: DRY SKIN Last Admin: 07/25/16 17:11 Dose: 1 applic Spironolactone (Aldactone -) 25 mg PO DAILY [facility] Last Admin: 07/28/16 09:25 Dose: 25 mg Tamsulosin HCl (Flomax -) 0.4 mg PO DAILY [facility] Last Admin: 07/28/16 09:25 Dose: 0.4 mg - Objective Vital Signs: Vital Signs Temperature 97.4 F L 07/29/16 06:00 Pulse Rate 66 07/29/16 06:00 Respiratory Rate 18 07/29/16 06:00 Blood Pressure 126/77 07/29/16 06:00 O2 Sat by Pulse Oximetry (%) 95 07/28/16 21:00 Constitutional: Yes: No Distress Cardiovascular: Yes: Regular Rate and Rhythm Respiratory: Yes: Other (decreased breath sounds at bases b/l) Gastrointestinal: Yes: Soft Edema: Yes Edema: LLE: 2+, RLE: 2+ Labs: CBC, BMP 07/23/16 05:45 INR, PTT INR 1.85 (0.82-1.09) H 07/22/16 13:10 Laboratory Tests 07/22/16 07/23/16 07/29/16 13:10 05:45 05:35 WBC 8.1 Hgb 11.9 Plt Count 197 INR 1.85 H Potassium Pending Creatinine Pending - ....Imaging EKG: Image Reviewed Assessment/Plan IMP: Ischemic cardiomyopathy Acute on chronic systolic CHF REC: Continue IV Lasix with daily electrolytes to monitor renal fxn Telemetry Allergic to ASA- consider Plavix? (CAD) Coverage for Fauzia
[2016-07-29 08:46] LABS: ALBUMIN 2.5 g/dl (3.4-5.0); ALK PHOS 147 U/L (45-117); ANION GAP 8 (8-16); BILIRUBIN,TOTAL 3.1 mg/dL (0.2-1.0); CALCIUM 8.3 mg/dL (8.5-10.1); CO2 34 mmol/L (21-32); CREATININE 0.9 mg/dL (0.55-1.02); GLUCOSE,RANDOM 67 mg/dL (74-106); SGOT/AST 35 U/L (15-37); SGPT/ALT 28 U/L (12-78)
[2016-07-29] MEDS: SPIRONOLACTONE 25 MG TABLET (FP) PO SCH (10:26)
[2016-07-29] MEDS: METOPROLOL SUCCINATE 50 MG TAB.SR.24H (FP) PO SCH (10:26)
[2016-07-29] MEDS: TAMSULOSIN HCL 0.4 MG CAP.ER.24H (FP) PO SCH (10:26)
[2016-07-29] MEDS: LISINOPRIL 10 MG TABLET (FP) PO SCH (10:26)
[2016-07-29] MEDS: ENOXAPARIN NA (PORCINE) 40 MG/0.4 ML DISP.SYRIN SQ SCH (10:29)
--- NOTE | 2016-07-29 10:50 | PN ---
Physical Exam: SUBJECTIVE: Patient seen and examined. complains of abdominal pain does not make eye contact and have to ask her the same question many times to get an answer OBJECTIVE: Vital Signs Period Temp Pulse Resp BP Sys/Santoro Pulse Ox Last 24 Hr 97.1 F-98.2 F 64-67 16-20 97-126/46-77 95 GENERAL: The patient is awake and alert EYES: PERRL ENT: moist mucous membranes. NECK: supple. LUNGS: CTAB HEART: Regular rate and rhythm ABDOMEN: Soft, slightly tender to palpation EXTREMITIES: 2+ pitting edema up to umbilicus NEUROLOGICAL: Cranial nerves II through XII grossly intact. Laboratory Results - last 24 hr 07/29/16 05:35 Sodium 138 Potassium 3.7 D Chloride 96 L Carbon Dioxide 34 H Anion Gap 8 BUN 25 H Creatinine 0.9 Creat Clearance w eGFR > 60 Random Glucose 67 L Calcium 8.3 L Total Bilirubin 3.1 H AST 35 ALT 28 Alkaline Phosphatase 147 H Total Protein 6.0 L Albumin 2.5 L Active Medications Generic Name Dose Route Start Last Admin Trade Name Freq PRN Reason Stop Dose Admin Atorvastatin Calcium 20 mg 07/23/16 22:00 07/28/16 21:30 Lipitor - PO 20 mg HS RINA Administration Calamine 1 applic 07/24/16 21:49 07/25/16 09:44 Calamine 8% Topical Lotion - TP 1 applic BID PRN Administration FOR ITCHING Enoxaparin Sodium 40 mg 07/23/16 10:00 07/29/16 10:29 Lovenox - SQ Not Given DAILY [facility] Furosemide 60 mg 07/27/16 14:00 07/28/16 13:40 Lasix Injection - IVPB 60 mg BID@0600,1400 [facility] Administration Guaifenesin 10 ml 07/22/16 17:15 07/28/16 17:38 Robitussin Dm - PO Not Given Q6HPO [facility] Levothyroxine Sodium 75 mcg 07/23/16 07:00 07/28/16 06:13 Synthroid - PO 75 mcg DAILY@0700 [facility] Administration Lisinopril 10 mg 07/23/16 10:00 07/29/16 10:26 Prinivil PO 10 mg DAILY [facility] Administration Metoprolol Succinate 150 mg 07/26/16 10:00 07/29/16 10:26 Toprol Xl - PO 150 mg DAILY [facility] Administration Multi-Ingredient Lotion 1 applic 07/25/16 11:07 07/25/16 17:11 Eucerin (Large Jar) - TP 1 applic DAILY PRN Administration DRY SKIN Spironolactone 25 mg 07/23/16 10:00 07/29/16 10:26 Aldactone - PO 25 mg DAILY [facility] Administration Tamsulosin HCl 0.4 mg 07/23/16 10:00 07/29/16 10:26 Flomax - PO 0.4 mg DAILY [facility] Administration ASSESSMENT/PLAN: 61F systolic CHF, HTN, HLD, hypothyroidism, s/p pacemaker/defibrillator, admitted for abdominal pain. Acute on chronic systolic CHF exacerbation continue lasix IVPB 60mg BID will give an extra dose of 40mg IV this evening increase aldactone to 50mg po daily cardiology consult appreciated one liter fluid restriction down 2Kg today continue trend daily weights continue to trend I/O Transaminitiis/Abdominal pain likely secondary to hepatic congestion from CHF. states she saw dr. lugo at [facility] who is a cigar binder and he did lab work and told her she was fine. CAD/HLD - atorvastatin 20 mg po qhs start plavix 75mg since allergic to aspirin HTN Well controlled at this time Continue metoprolol and lisinopril Hypothyroidism continue 75 mcg synthroid qam DM -not on meds at home HbA1C 6.6 outpt follow up FEN: fluid restriction trend lytes sodium restricted diet PPx: lovenox patient is ambulating Visit type - Emergency Visit Emergency Visit: Yes ED Registration Date: 07/22/16 Care time: The patient presented to the Emergency Department on the above date and was hospitalized for further evaluation of their emergent condition. - New Patient This patient is new to me today: No - Critical Care Critical Care patient: No
[2016-07-29] MEDS: guaiFENesin/D-METHORPHAN HB 10 ML UNIT-DOSE CUPS PO SCH ×2 (11:45→19:00)
[2016-07-29] MEDS ORDERED: SPIRONOLACTONE 25 MG TABLET (FP) PO ONE (12:11)
[2016-07-29] MEDS ORDERED: SPIRONOLACTONE 25 MG TABLET (FP) PO SCH (12:12)
[2016-07-29] MEDS: CLOPIDOGREL BISULFATE 75 MG TABLET (FP) PO SCH (13:44)
[2016-07-29] MEDS: FUROSEMIDE 100 MG/10 ML INJECTABLE VIAL IVPB SCH (13:45)
--- NOTE | 2016-07-29 14:35 | PN ---
Teaching Attending Note Name of Resident: Cristofer Mckeon ATTENDING PHYSICIAN STATEMENT I saw and evaluated the patient. I reviewed the resident's note and discussed the case with the resident. I agree with the resident's findings and plan as documented. SUBJECTIVE: " still feel the same " OBJECTIVE: no fever or chills . abd pain . no SOB OBJ: NAD CV : RRR, no MRG Lungs : clear lungs , good air entry . Ext : 2+ pitting edema ABD: soft, TTP in all quadrants, nl BS . Abd wall edema ASSESSMENT AND PLAN: 61 year old female, with a significant past medical history of hypertension, hypercholesterolemia, CAD, [place](X2, s/pp defibrillator/pacemaker and CABG), CHF, DM II, kidney stones and peripheral neuropathy, and hypothyroidism, admitted for ABd pain . She developed acute CHF 1- Acute on chronic systolic CHF : - cont lasix 60 BID. give extra 40 mg of iV lasix - increase Aldactone - cont BB 2- ABd pain : chronic , worse with Abd wall edema - monitor with diuresis 3- LFTS abnormalities. likely due to hepatic congestion with CHF. level improved . cont to monitor . DVT px HLOC
[2016-07-29] MEDS ORDERED: FUROSEMIDE 40 MG/4 ML INJECTABLE VIAL IVPUSH ONE (18:00)
[2016-07-29] MEDS: ATORVASTATIN CA 20 MG TABLET (FP) PO SCH (22:02)
[2016-07-30] MEDS: guaiFENesin/D-METHORPHAN HB 10 ML UNIT-DOSE CUPS PO SCH ×5 (00:05→18:01)
[2016-07-30] MEDS: FUROSEMIDE 100 MG/10 ML INJECTABLE VIAL IVPB SCH ×3 (06:04→15:54)
[2016-07-30] MEDS: LEVOTHYROXINE NA 75 MCG TABLET (FP) PO SCH ×2 (06:04→13:38)
[2016-07-30 08:52] LABS: ALBUMIN 2.6 g/dl (3.4-5.0); ALK PHOS 147 U/L (45-117); ANION GAP 7 (8-16); BILIRUBIN,TOTAL 3.1 mg/dL (0.2-1.0); CALCIUM 8.5 mg/dL (8.5-10.1); CO2 35 mmol/L (21-32); CREATININE 0.7 mg/dL (0.55-1.02); GLUCOSE,RANDOM 77 mg/dL (74-106); SGOT/AST 33 U/L (15-37); SGPT/ALT 29 U/L (12-78); TOT PROT 6.2 g/dl (6.4-8.2)
[2016-07-30] MEDS: METOPROLOL SUCCINATE 50 MG TAB.SR.24H (FP) PO SCH (09:43)
[2016-07-30] MEDS: TAMSULOSIN HCL 0.4 MG CAP.ER.24H (FP) PO SCH (09:44)
[2016-07-30] MEDS: SPIRONOLACTONE 25 MG TABLET (FP) PO SCH (09:44)
[2016-07-30] MEDS: LISINOPRIL 10 MG TABLET (FP) PO SCH (09:44)
[2016-07-30] MEDS: CLOPIDOGREL BISULFATE 75 MG TABLET (FP) PO SCH (09:44)
[2016-07-30] MEDS: ENOXAPARIN NA (PORCINE) 40 MG/0.4 ML DISP.SYRIN SQ SCH (10:30)
--- NOTE | 2016-07-30 10:38 | PN ---
Progress Note, Physician Chief Complaint: no new complaints - Current Medication List Current Medications: Active Medications Atorvastatin Calcium (Lipitor -) 20 mg PO HS [facility] Last Admin: 07/29/16 22:02 Dose: 20 mg Calamine (Calamine 8% Topical Lotion -) 1 applic TP BID PRN PRN Reason: FOR ITCHING Last Admin: 07/25/16 09:44 Dose: 1 applic Clopidogrel Bisulfate (Plavix -) 75 mg PO DAILY [facility] Last Admin: 07/30/16 09:44 Dose: 75 mg Enoxaparin Sodium (Lovenox -) 40 mg SQ DAILY [facility] Last Admin: 07/29/16 10:29 Dose: Not Given Furosemide (Lasix Injection -) 60 mg IVPB BID@0600,1400 [facility] Last Admin: 07/30/16 06:04 Dose: 60 mg Guaifenesin (Robitussin Dm -) 10 ml PO Q6HPO [facility] Last Admin: 07/30/16 05:18 Dose: Not Given Levothyroxine Sodium (Synthroid -) 75 mcg PO DAILY@0700 [facility] Last Admin: 07/30/16 06:04 Dose: 75 mcg Lisinopril (Prinivil) 10 mg PO DAILY [facility] Last Admin: 07/30/16 09:44 Dose: 10 mg Metoprolol Succinate (Toprol Xl -) 150 mg PO DAILY [facility] Last Admin: 07/30/16 09:43 Dose: 150 mg Multi-Ingredient Lotion (Eucerin (Large Jar) -) 1 applic TP DAILY PRN PRN Reason: DRY SKIN Last Admin: 07/25/16 17:11 Dose: 1 applic Spironolactone (Aldactone -) 50 mg PO DAILY [facility] Last Admin: 07/30/16 09:44 Dose: 50 mg Tamsulosin HCl (Flomax -) 0.4 mg PO DAILY [facility] Last Admin: 07/30/16 09:44 Dose: 0.4 mg - Objective Vital Signs: Vital Signs Temperature 98.2 F 07/30/16 08:15 Pulse Rate 66 07/30/16 08:15 Respiratory Rate 18 07/30/16 08:15 Blood Pressure 116/66 07/30/16 08:15 O2 Sat by Pulse Oximetry (%) 98 07/29/16 20:17 Constitutional: Yes: No Distress Cardiovascular: Yes: Regular Rate and Rhythm Respiratory: Yes: Other (decreased breath sounds at bases) Gastrointestinal: Yes: Soft Edema: Yes Edema: LLE: 2+, RLE: 2+ Neurological: Yes: Alert Labs: CBC, BMP 07/23/16 05:45 07/30/16 05:35 INR, PTT INR 1.85 (0.82-1.09) H 07/22/16 13:10 Laboratory Tests 07/30/16 05:35 Potassium 3.6 Creatinine 0.7 D Assessment/Plan Assessment/Plan IMP: Ischemic cardiomyopathy Acute on chronic systolic CHF REC: Continue IV Lasix with daily electrolytes to monitor renal fxn Telemetry Allergic to ASA- consider Plavix? (CAD) Coverage for [facility]
--- NOTE | 2016-07-30 15:52 | PN ---
Progress Note (short form) - Note Progress Note: Subjective: " I still feel the same " . Abd pain and SOB that is intermittent Objective: Vital Signs: Last Vital Signs Temp Pulse Resp BP Pulse Ox 98.2 F 66 18 116/66 93 L 07/30/16 08:15 07/30/16 08:15 07/30/16 08:15 07/30/16 08:15 07/30/16 09:00 I&O: Intake & Output 07/27/16 07/28/16 07/29/16 07/31/16 23:59 23:59 23:59 00:59 Intake Total 250 200 450 100 Output Total 400 Balance 250 200 50 100 Weight 202 lb 197 lb 198 lb 6 oz 196 lb 8 oz Physical Exam: NAD CV : RRR, no MRG Lungs : clear lungs , good air entry . Ext : 2+ pitting edema ABD: soft, TTP in all quadrants, nl BS . Abd wall edema Laboratory Results - last 24 hr 07/30/16 05:35 Sodium 137 Potassium 3.6 Chloride 95 L Carbon Dioxide 35 H Anion Gap 7 L BUN 20 H Creatinine 0.7 D Creat Clearance w eGFR > 60 Random Glucose 77 Calcium 8.5 Total Bilirubin 3.1 H AST 33 ALT 29 Alkaline Phosphatase 147 H Total Protein 6.2 L Albumin 2.6 L ASSESSMENT AND PLAN: 61 year old female, with a significant past medical history of hypertension, hypercholesterolemia, CAD, [place](X2, s/pp defibrillator/pacemaker and CABG), CHF, DM II, kidney stones and peripheral neuropathy, and hypothyroidism, admitted for ABd pain . She developed acute CHF 1- Acute on chronic systolic CHF : - cont lasix 60 BID. weight has improved refused lasix at 2 pm today , wants 7 am and 6pm dosing . will change -cont increased dose of Aldactone - cont BB - cont plavix 2- ABd pain : chronic , worse with Abd wall edema - monitor with diuresis 3- LFTS abnormalities. likely due to hepatic congestion with CHF. level improved . cont to monitor . DVT px HLOC Visit type - Emergency Visit Emergency Visit: Yes ED Registration Date: 07/22/16 Care time: The patient presented to the Emergency Department on the above date and was hospitalized for further evaluation of their emergent condition. - New Patient This patient is new to me today: No - Critical Care Critical Care patient: No
[2016-07-30] MEDS: FUROSEMIDE 100 MG/10 ML INJECTABLE VIAL IVPUSH SCH (18:01)
[2016-07-30] MEDS: ATORVASTATIN CA 20 MG TABLET (FP) PO SCH (22:04)
[2016-07-31] MEDS: guaiFENesin/D-METHORPHAN HB 10 ML UNIT-DOSE CUPS PO SCH ×5 (06:32→18:23)
[2016-07-31] MEDS: LEVOTHYROXINE NA 75 MCG TABLET (FP) PO SCH (06:32)
[2016-07-31] MEDS: FUROSEMIDE 100 MG/10 ML INJECTABLE VIAL IVPUSH SCH (06:32)
[2016-07-31] MEDS ORDERED: FUROSEMIDE 100 MG/10 ML INJECTABLE VIAL IVPB SCH (07:00)
[2016-07-31 08:57] LABS: ALBUMIN 2.7 g/dl (3.4-5.0); ANION GAP 8 (8-16); CALCIUM 8.5 mg/dL (8.5-10.1); CO2 36 mmol/L (21-32); CREATININE 0.7 mg/dL (0.55-1.02); GLUCOSE,RANDOM 76 mg/dL (74-106); SGOT/AST 38 U/L (15-37); SGPT/ALT 25 U/L (12-78)
[2016-07-31 08:58] LABS: ALK PHOS 147 U/L (45-117)
[2016-07-31] MEDS ORDERED: PT OWN MED DRAWER 7, Y5N ONE (10:09)
[2016-07-31] MEDS: TAMSULOSIN HCL 0.4 MG CAP.ER.24H (FP) PO SCH (10:17)
[2016-07-31] MEDS: METOPROLOL SUCCINATE 50 MG TAB.SR.24H (FP) PO SCH (10:17)
[2016-07-31] MEDS: CLOPIDOGREL BISULFATE 75 MG TABLET (FP) PO SCH (10:17)
[2016-07-31] MEDS: ENOXAPARIN NA (PORCINE) 40 MG/0.4 ML DISP.SYRIN SQ SCH ×2 (10:17→10:20)
[2016-07-31] MEDS: SPIRONOLACTONE 25 MG TABLET (FP) PO SCH (10:17)
[2016-07-31] MEDS: LISINOPRIL 10 MG TABLET (FP) PO SCH (10:17)
--- NOTE | 2016-07-31 12:40 | PN ---
Progress Note, Physician History of Present Illness: The patient is a 61 year old female, with a significant past medical history of hypertension, hypercholesterolemia, CAD, [place](X2, s/pp defibrillator/pacemaker and CABG), CHF, DM, kidney stones and peripheral neuropathy, and hypothyroidism , who presents to the emergency department complaining of abdominal pain since last night. The patient was recently admitted at [facility] on 07/09/16 for bilateral lower extremity edema and chest pain. Since her discharge on 07/14/16 the patient reports she was feeling better. However, last night she began to experience difficulty breathing and diffuse abdominal pain. The patient reports her abdominal pain is worse below the umbilicus. She reports associated nonproductive cough and chills, but denies fever, headache, or dizziness. The patient reports bilateral lower extremity edema that is part of her baseline, but states that fluid is coming out of her leg. The patient denies any diaphoresis or palpitations. The patient denies nausea, vomiting, diarrhea, or constipation. The patient denies any dysuria, hematuria, frequency, or urgency. - Current Medication List Current Medications: Active Medications Atorvastatin Calcium (Lipitor -) 20 mg PO HS [facility] Last Admin: 07/30/16 22:04 Dose: 20 mg Calamine (Calamine 8% Topical Lotion -) 1 applic TP BID PRN PRN Reason: FOR ITCHING Last Admin: 07/25/16 09:44 Dose: 1 applic Clopidogrel Bisulfate (Plavix -) 75 mg PO DAILY [facility] Last Admin: 07/31/16 10:17 Dose: 75 mg Enoxaparin Sodium (Lovenox -) 40 mg SQ DAILY [facility] Last Admin: 07/31/16 10:20 Dose: Not Given Furosemide (Lasix Injection -) 60 mg IVPUSH BID@0600,1800 [facility] Last Admin: 07/31/16 06:32 Dose: 60 mg Guaifenesin (Robitussin Dm -) 10 ml PO Q6HPO [facility] Last Admin: 07/31/16 11:48 Dose: Not Given Levothyroxine Sodium (Synthroid -) 75 mcg PO DAILY@0700 [facility] Last Admin: 07/31/16 06:32 Dose: 75 mcg Lisinopril (Prinivil) 10 mg PO DAILY [facility] Last Admin: 07/31/16 10:17 Dose: 10 mg Metoprolol Succinate (Toprol Xl -) 150 mg PO DAILY [facility] Last Admin: 07/31/16 10:17 Dose: 150 mg Multi-Ingredient Lotion (Eucerin (Large Jar) -) 1 applic TP DAILY PRN PRN Reason: DRY SKIN Last Admin: 07/25/16 17:11 Dose: 1 applic Spironolactone (Aldactone -) 50 mg PO DAILY [facility] Last Admin: 07/31/16 10:17 Dose: 50 mg Tamsulosin HCl (Flomax -) 0.4 mg PO DAILY [facility] Last Admin: 07/31/16 10:17 Dose: 0.4 mg - Objective Vital Signs: Vital Signs Temperature 98.2 F 07/31/16 10:00 Pulse Rate 69 07/31/16 10:00 Respiratory Rate 20 07/31/16 10:00 Blood Pressure 118/62 07/31/16 10:00 O2 Sat by Pulse Oximetry (%) 95 07/31/16 09:00 Eyes: Yes: WNL, Conjunctiva Clear, EOM Intact HENT: Yes: WNL, Atraumatic, Normocephalic Neck: Yes: WNL, Supple, Trachea Midline Cardiovascular: Yes: WNL, Regular Rate and Rhythm Respiratory: Yes: WNL, Regular, CTA Bilaterally Gastrointestinal: Yes: WNL, Normal Bowel Sounds Genitourinary: Yes: WNL Musculoskeletal: Yes: WNL Extremities: Yes: WNL Edema: Yes Edema: LLE: 1+, RLE: 1+ Integumentary: Yes: WNL Neurological: Yes: WNL, Alert, Oriented ...Motor Strength: WNL Psychiatric: Yes: WNL Labs: CBC, BMP 07/23/16 05:45 07/31/16 06:15 INR, PTT INR 1.85 (0.82-1.09) H 07/22/16 13:10 Problem List - Problems (1) Anasarca Code(s): R60.1 - GENERALIZED EDEMA (2) Abdominal discomfort Code(s): R10.9 - UNSPECIFIED ABDOMINAL PAIN (3) Abdominal pain Code(s): R10.9 - UNSPECIFIED ABDOMINAL PAIN Qualifiers: Qualified Code(s): R10.84 - Generalized abdominal pain (4) Acute combined systolic and diastolic ACC/AHA stage C congestive heart failure Code(s): I50.41 - ACUTE COMBINED SYSTOLIC AND DIASTOLIC (CONGESTIVE) HRT FAIL (5) CHF (congestive heart failure), NYHA class III Code(s): I50.9 - HEART FAILURE, UNSPECIFIED Qualifiers: Qualified Code(s): I50.9 - Heart failure, unspecified (6) Chest pain Code(s): R07.9 - CHEST PAIN, UNSPECIFIED (7) Dyspepsia Code(s): K30 - FUNCTIONAL DYSPEPSIA (8) Hyperbilirubinemia Code(s): E80.6 - OTHER DISORDERS OF BILIRUBIN METABOLISM (9) Hypertension Code(s): I10 - ESSENTIAL (PRIMARY) HYPERTENSION (10) Hypothyroidism Code(s): E03.9 - HYPOTHYROIDISM, UNSPECIFIED (11) Shortness of breath Code(s): R06.02 - SHORTNESS OF BREATH (12) Sphincter of Oddi dysfunction Code(s): K83.4 - SPASM OF SPHINCTER OF ODDI (13) Status post THR (total hip replacement) Code(s): Z96.649 - PRESENCE OF UNSPECIFIED ARTIFICIAL HIP JOINT (14) Tobacco use disorder Code(s): Z72.0 - TOBACCO USE (15) Transaminitis Code(s): R74.0 - NONSPEC ELEV OF LEVELS OF TRANSAMNS & LACTIC ACID DEHYDRGNSE (16) Postoperative abdominal pain Code(s): R10.9 - UNSPECIFIED ABDOMINAL PAIN G89.18 - OTHER ACUTE POSTPROCEDURAL PAIN (17) Acute exacerbation of CHF (congestive heart failure) Code(s): I50.9 - HEART FAILURE, UNSPECIFIED (18) Edema Code(s): R60.9 - EDEMA, UNSPECIFIED Qualifiers: Qualified Code(s): R60.1 - Generalized edema (19) Lower extremity edema Code(s): R60.0 - LOCALIZED EDEMA Qualifiers: Qualified Code(s): R60.0 - Localized edema (20) Orthopnea Code(s): R06.01 - ORTHOPNEA (21) Pitting edema Code(s): R60.9 - EDEMA, UNSPECIFIED (22) Abdominal pain, diffuse Code(s): R10.84 - GENERALIZED ABDOMINAL PAIN (23) Acute on chronic systolic and diastolic heart failure, NYHA class 3 Code(s): I50.43 - ACUTE ON CHRONIC COMBINED SYSTOLIC AND DIASTOLIC HRT FAIL (24) CHF (congestive heart failure) Code(s): I50.9 - HEART FAILURE, UNSPECIFIED Qualifiers: Qualified Code(s): I50.9 - Heart failure, unspecified (25) Cholecystitis without cholelithiasis Code(s): K81.9 - CHOLECYSTITIS, UNSPECIFIED (26) Chronic systolic congestive heart failure Code(s): I50.22 - CHRONIC SYSTOLIC (CONGESTIVE) HEART FAILURE (27) Cirrhosis of liver Code(s): K74.60 - UNSPECIFIED CIRRHOSIS OF LIVER (28) Coronary artery disease Code(s): I25.10 - ATHSCL HEART DISEASE OF [place] CORONARY ARTERY W/O ANG PCTRS (29) Depression Code(s): F32.9 - MAJOR DEPRESSIVE DISORDER, SINGLE EPISODE, UNSPECIFIED (30) Diabetes Code(s): E11.9 - TYPE 2 DIABETES MELLITUS WITHOUT COMPLICATIONS (31) Fatty liver Code(s): K76.0 - FATTY (CHANGE OF) LIVER, NOT ELSEWHERE CLASSIFIED (32) Hyperlipidemia Code(s): E78.5 - HYPERLIPIDEMIA, UNSPECIFIED (33) Hypoalbuminemia Code(s): E88.09 - OT DISORDERS OF PLASMA-PROTEIN METABOLISM, NEC (34) ICD (implantable cardioverter-defibrillator) in place Code(s): Z95.810 - PRESENCE OF AUTOMATIC (IMPLANTABLE) CARDIAC DEFIBRILLATOR (35) Migraine headache Code(s): G43.909 - MIGRAINE, UNSP, NOT INTRACTABLE, WITHOUT STATUS MIGRAINOSUS (36) Peripheral neuropathy Code(s): G62.9 - POLYNEUROPATHY, UNSPECIFIED (38) Risk for coronary artery disease greater than 20% in next 10 years Code(s): Z91.89 - OT PERSONAL RISK FACTORS, NOT ELSEWHERE CLASSIFIED (39) Substance abuse Code(s): F19.10 - OTHER PSYCHOACTIVE SUBSTANCE ABUSE, UNCOMPLICATED (40) Systolic heart failure Code(s): I50.20 - UNSPECIFIED SYSTOLIC (CONGESTIVE) HEART FAILURE (41) Autoimmune hepatitis Code(s): K75.4 - AUTOIMMUNE HEPATITIS Assessment/Plan Ischemic cardiomyopathy Acute on chronic systolic CHF abd pain REC: Continue IV Lasix with daily electrolytes to monitor renal fxn Telemetry Allergic to ASA- consider Plavix? (CAD)
[2016-07-31] MEDS ORDERED: traMADol HCL 50 MG TABLET PO ONE (13:00)
[2016-07-31] MEDS ORDERED: POTASSIUM CHLORIDE 40 MEQ/30 ML UNIT DOSE CUP PO SCH (13:30)
--- NOTE | 2016-07-31 15:11 | PN ---
Addendum entered and electronically signed by Cristofer Mckeon RES 07/31/16 15:19: worse swelling with pain of the RLE will do bilateral lower extremity duplex to rule out DVT Original Note: Physical Exam: SUBJECTIVE: Patient seen and examined complains of a lot of pain OBJECTIVE: Vital Signs Period Temp Pulse Resp BP Sys/Santoro Pulse Ox Last 24 Hr 97.5 F-98.3 F 66-71 20-20 106-118/56-65 93-95 GENERAL: The patient is awake and alert EYES: PERRL ENT: moist mucous membranes. NECK: supple. LUNGS: CTAB HEART: Regular rate and rhythm ABDOMEN: Soft, slightly tender to palpation EXTREMITIES: 2+ pitting edema up to umbilicus NEUROLOGICAL: Cranial nerves II through XII grossly intact. Laboratory Results - last 24 hr 07/31/16 06:15 Sodium 138 Potassium 3.3 L Chloride 94 L Carbon Dioxide 36 H Anion Gap 8 BUN 15 D Creatinine 0.7 Creat Clearance w eGFR > 60 Random Glucose 76 Calcium 8.5 Total Bilirubin 3.0 H AST 38 H ALT 25 Alkaline Phosphatase 147 H Total Protein 6.0 L Albumin 2.7 L Active Medications Generic Name Dose Route Start Last Admin Trade Name Freq PRN Reason Stop Dose Admin Atorvastatin Calcium 20 mg 07/23/16 22:00 07/30/16 22:04 Lipitor - PO 20 mg HS [facility]INA Administration Calamine 1 applic 07/24/16 21:49 07/25/16 09:44 Calamine 8% Topical Lotion - TP 1 applic BID PRN Administration FOR ITCHING Clopidogrel Bisulfate 75 mg 07/29/16 12:15 07/31/16 10:17 Plavix - PO 75 mg DAILY [facility] Administration Enoxaparin Sodium 40 mg 07/23/16 10:00 07/31/16 10:20 Lovenox - SQ Not Given DAILY [facility] Guaifenesin 10 ml 07/22/16 17:15 07/31/16 11:48 Robitussin Dm - PO Not Given Q6HPO [facility]INA Furosemide 100 mg/ Dextrose 50 mls @ 5 mls/hr 07/31/16 13:30 IVPB TITR RINA 10 MG/HR Levothyroxine Sodium 75 mcg 07/23/16 07:00 07/31/16 06:32 Synthroid - PO 75 mcg DAILY@0700 [facility] Administration Lisinopril 10 mg 07/23/16 10:00 07/31/16 10:17 Prinivil PO 10 mg DAILY [facility] Administration Metoprolol Succinate 150 mg 07/26/16 10:00 07/31/16 10:17 Toprol Xl - PO 150 mg DAILY [facility] Administration Multi-Ingredient Lotion 1 applic 07/25/16 11:07 07/25/16 17:11 Eucerin (Large Jar) - TP 1 applic DAILY PRN Administration DRY SKIN Potassium Chloride 40 meq 07/31/16 15:15 K-Dur - PO 07/31/16 22:01 BID RINA Spironolactone 50 mg 07/30/16 10:00 07/31/16 10:17 Aldactone - PO 50 mg DAILY [facility] Administration Tamsulosin HCl 0.4 mg 07/23/16 10:00 07/31/16 10:17 Flomax - PO 0.4 mg DAILY [facility] Administration ASSESSMENT/PLAN: 61F systolic CHF, HTN, HLD, hypothyroidism, s/p pacemaker/defibrillator, admitted for abdominal pain. Acute on chronic systolic CHF exacerbation stop lasix 60mg IV BID. start lasix gtt at 10mg/hr continue aldactone 50mg po daily cardiology consult appreciated one liter fluid restriction weight continues to decrease continue trend daily weights continue to trend I/O Give one dose of ultram for pain control Transaminitiis/Abdominal pain likely secondary to hepatic congestion from CHF. states she saw dr. lugo at [facility] who is a maintenance groundman and he did lab work and told her she was fine. LFTs unchanged still elevated CAD/HLD - atorvastatin 20 mg po qhs continue plavix 75mg since allergic to aspirin HTN Well controlled at this time Continue metoprolol and lisinopril Hypothyroidism continue 75 mcg synthroid qam DM -not on meds at home HbA1C 6.6 outpt follow up FEN: fluid restriction replete potassium for hypokalemia sodium restricted diet PPx: lovenox no GI ppx needed patient is ambulating Visit type - Emergency Visit Emergency Visit: Yes ED Registration Date: 07/22/16 Care time: The patient presented to the Emergency Department on the above date and was hospitalized for further evaluation of their emergent condition. - New Patient This patient is new to me today: No - Critical Care Critical Care patient: No
[2016-07-31] MEDS: POTASSIUM CHLORIDE TABS 20 MEQ TABLET.ER (FP) PO SCH ×2 (15:41→21:04)
[2016-07-31] MEDS: FUROSEMIDE INJECTION 100 MG in DEXTROSE 5%-WATER - 40 ML IVPB SCH (15:42)
[2016-07-31] MEDS: ATORVASTATIN CA 20 MG TABLET (FP) PO SCH (21:04)
[2016-08-01] MEDS: guaiFENesin/D-METHORPHAN HB 10 ML UNIT-DOSE CUPS PO SCH ×5 (00:10→23:49)
[2016-08-01] MEDS ORDERED: FUROSEMIDE 100 MG/10 ML INJECTABLE VIAL ONE ×2 (03:03→17:27)
[2016-08-01] MEDS: FUROSEMIDE INJECTION 100 MG in DEXTROSE 5%-WATER - 40 ML IVPB SCH ×2 (03:09→17:35)
[2016-08-01] MEDS: LEVOTHYROXINE NA 75 MCG TABLET (FP) PO SCH (06:11)
[2016-08-01 08:37] LABS: ALBUMIN 2.4 g/dl (3.4-5.0); ALK PHOS 143 U/L (45-117); ANION GAP 9 (8-16); BILIRUBIN,TOTAL 2.3 mg/dL (0.2-1.0); CO2 35 mmol/L (21-32); CREATININE 0.7 mg/dL (0.55-1.02); GLUCOSE,RANDOM 84 mg/dL (74-106); SGOT/AST 29 U/L (15-37); SGPT/ALT 23 U/L (12-78); TOT PROT 5.7 g/dl (6.4-8.2)
--- NOTE | 2016-08-01 09:35 | PN ---
Progress Note, Physician Chief Complaint: Pt OOB in chair; PND; No chest pain or dyspnea. Still feels pain and swelling in feet-->knees. History of Present Illness: he patient is a 61 year old black female, with a significant past medical history of hypertension, hypercholesterolemia, CAD, [place](X2, s/pp defibrillator/ pacemaker and CABG), severe systolic CHF, DM, kidney stones and peripheral neuropathy, and hypothyroidism, who presents to the emergency department complaining of abdominal pain since last night. The patient was recently admitted at [facility] on 07/09/16 for bilateral lower extremity edema and chest pain. Since her discharge on 07/14/16 the patient reports she was feeling better. However, last night she began to experience difficulty breathing and diffuse abdominal pain. The patient reports her abdominal pain is worse below the umbilicus. She reports associated nonproductive cough and chills, but denies fever, headache, or dizziness. The patient reports bilateral lower extremity edema that is part of her baseline, but states that fluid is coming out of her leg. The patient denies any diaphoresis or palpitations. The patient denies nausea, vomiting, diarrhea, or constipation. The patient denies any dysuria, hematuria, frequency, or urgency. Allergies: Aspirin Past Surgical History: PEG tube placement, stent placement x2, CABG(2003), ICD/ Pacemaker(11/2014), Cholecystectomy (04/2016) Social History: Current everyday smoker(5 cigarettes per day). Denies alcohol or drug use. PCP: Dr. Ferrer ([phone]) [employer] Officer: Dr. Cage Rail Track Maintainer: Dr. San ([phone]) - Current Medication List Current Medications: Active Medications Atorvastatin Calcium (Lipitor -) 20 mg PO HS [facility] Last Admin: 07/31/16 21:04 Dose: 20 mg Calamine (Calamine 8% Topical Lotion -) 1 applic TP BID PRN PRN Reason: FOR ITCHING Last Admin: 07/25/16 09:44 Dose: 1 applic Clopidogrel Bisulfate (Plavix -) 75 mg PO DAILY [facility] Last Admin: 07/31/16 10:17 Dose: 75 mg Enoxaparin Sodium (Lovenox -) 40 mg SQ DAILY [facility] Last Admin: 07/31/16 10:20 Dose: Not Given Guaifenesin (Robitussin Dm -) 10 ml PO Q6HPO [facility] Last Admin: 08/01/16 06:10 Dose: Not Given Furosemide 100 mg/ Dextrose 50 mls @ 5 mls/hr IVPB TITR [facility] PRN Reason: 10 MG/HR Last Admin: 08/01/16 03:09 Dose: 5 mls/hr Levothyroxine Sodium (Synthroid -) 75 mcg PO DAILY@0700 [facility] Last Admin: 08/01/16 06:11 Dose: 75 mcg Lisinopril (Prinivil) 10 mg PO DAILY [facility] Last Admin: 07/31/16 10:17 Dose: 10 mg Metoprolol Succinate (Toprol Xl -) 150 mg PO DAILY [facility] Last Admin: 07/31/16 10:17 Dose: 150 mg Multi-Ingredient Lotion (Eucerin (Large Jar) -) 1 applic TP DAILY PRN PRN Reason: DRY SKIN Last Admin: 07/25/16 17:11 Dose: 1 applic Spironolactone (Aldactone -) 50 mg PO DAILY [facility] Last Admin: 07/31/16 10:17 Dose: 50 mg Tamsulosin HCl (Flomax -) 0.4 mg PO DAILY [facility] Last Admin: 07/31/16 10:17 Dose: 0.4 mg - Objective Vital Signs: Vital Signs Temperature 98.2 F 08/01/16 09:12 Pulse Rate 69 08/01/16 09:12 Respiratory Rate 20 08/01/16 09:12 Blood Pressure 106/66 08/01/16 09:12 O2 Sat by Pulse Oximetry (%) 96 07/31/16 21:00 Constitutional: Yes: No Distress, Calm Eyes: Yes: WNL HENT: Yes: WNL Neck: Yes: WNL Cardiovascular: Yes: Pulse Irregular Respiratory: Yes: Diminished Musculoskeletal: Yes: Joint Swelling, Muscle Weakness Extremities: Yes: Cool Edema: Yes Edema: LLE: 2+, RLE: 2+ Peripheral Pulses WNL: No Peripheral Pulses: Left Doralis Pedis: 1+, Right Dorsalis Pedis: 1+ Integumentary: Yes: Venous Stasis Changes Neurological: Yes: Alert, Oriented, Weakness Psychiatric: Yes: WNL Labs: CBC, BMP 07/23/16 05:45 08/01/16 06:30 INR, PTT INR 1.85 (0.82-1.09) H 07/22/16 13:10 Problem List - Problems (1) Anasarca Code(s): R60.1 - GENERALIZED EDEMA (2) Cardiac cirrhosis Code(s): K76.1 - CHRONIC PASSIVE CONGESTION OF LIVER (3) Abdominal discomfort Code(s): R10.9 - UNSPECIFIED ABDOMINAL PAIN (4) Acute combined systolic and diastolic ACC/AHA stage C congestive heart failure Assessment/Plan: IV furosemide; may increase dose as needed to decrease weight and LE swelling. F/u Is and Os, daily weight, electrolytes, BUN/Cr. Code(s): I50.41 - ACUTE COMBINED SYSTOLIC AND DIASTOLIC (CONGESTIVE) HRT FAIL (5) Dyspepsia Code(s): K30 - FUNCTIONAL DYSPEPSIA (6) Hyperbilirubinemia Code(s): E80.6 - OTHER DISORDERS OF BILIRUBIN METABOLISM (7) Hypertension Code(s): I10 - ESSENTIAL (PRIMARY) HYPERTENSION (8) Hypothyroidism Code(s): E03.9 - HYPOTHYROIDISM, UNSPECIFIED (9) Tobacco use disorder Assessment/Plan: Smoking cessation is critical for pt, but dificult for her to adhere to. Code(s): Z72.0 - TOBACCO USE (10) Risk for coronary artery disease greater than 20% in next 10 years Code(s): Z91.89 - OTH PERSONAL RISK FACTORS, NOT ELSEWHERE CLASSIFIED
[2016-08-01 09:49] LABS: MAGNESIUM 1.5 mg/dL (1.8-2.4)
[2016-08-01] MEDS ORDERED: oxyCODONE HCL 5 MG TABLET PO ONE (09:53)
[2016-08-01] MEDS: POTASSIUM CHLORIDE TABS 20 MEQ TABLET.ER (FP) PO SCH ×2 (10:13→22:23)
[2016-08-01] MEDS: LISINOPRIL 10 MG TABLET (FP) PO SCH (10:14)
[2016-08-01] MEDS: SPIRONOLACTONE 25 MG TABLET (FP) PO SCH (10:14)
[2016-08-01] MEDS: METOPROLOL SUCCINATE 50 MG TAB.SR.24H (FP) PO SCH (10:14)
[2016-08-01] MEDS: TAMSULOSIN HCL 0.4 MG CAP.ER.24H (FP) PO SCH (10:14)
[2016-08-01] MEDS: CLOPIDOGREL BISULFATE 75 MG TABLET (FP) PO SCH (10:15)
[2016-08-01] MEDS: ENOXAPARIN NA (PORCINE) 40 MG/0.4 ML DISP.SYRIN SQ SCH (10:15)
[2016-08-01] MEDS ORDERED: MAGNESIUM SULF 50% (8.12 MEQ/2 ML-1 GM VIAL) IVPB ONE (10:50)
--- NOTE | 2016-08-01 13:32 | PN ---
Physical Exam: SUBJECTIVE: Patient seen and examined. complains of ankle pain states tramadol did not help yesterday ultrasound Duplex negative for DVT of bilateral lower extremities diuresing well on lasix gtt down 2Kg from yesterday OBJECTIVE: Vital Signs Period Temp Pulse Resp BP Sys/Santoro Pulse Ox Last 24 Hr 97.5 F-98.7 F 66-69 18-20 106-113/56-67 96-96 GENERAL: The patient is awake and alert EYES: PERRL ENT: moist mucous membranes. NECK: supple. LUNGS: CTAB HEART: Regular rate and rhythm ABDOMEN: Soft, tender to palpation EXTREMITIES: 2+ pitting edema up to umbilicus with erythema of bilateral lower extremities. lower extremities are tender to palpation. oozing fluid from lower extremities NEUROLOGICAL: Cranial nerves II through XII grossly intact Laboratory Results - last 24 hr 08/01/16 06:30 Sodium 140 Potassium 3.2 L Chloride 96 L Carbon Dioxide 35 H Anion Gap 9 BUN 15 Creatinine 0.7 Creat Clearance w eGFR > 60 Random Glucose 84 Calcium 8.0 L Magnesium 1.5 L D Total Bilirubin 2.3 H D AST 29 D ALT 23 Alkaline Phosphatase 143 H Total Protein 5.7 L Albumin 2.4 L Active Medications Generic Name Dose Route Start Last Admin Trade Name Freq PRN Reason Stop Dose Admin Atorvastatin Calcium 20 mg 07/23/16 22:00 07/31/16 21:04 Lipitor - PO 20 mg HS RINA Administration Calamine 1 applic 07/24/16 21:49 07/25/16 09:44 Calamine 8% Topical Lotion - TP 1 applic BID PRN Administration FOR ITCHING Clopidogrel Bisulfate 75 mg 07/29/16 12:15 08/01/16 10:15 Plavix - PO 75 mg DAILY RINA Administration Enoxaparin Sodium 40 mg 07/23/16 10:00 08/01/16 10:15 Lovenox - SQ Not Given DAILY RINA Guaifenesin 10 ml 07/22/16 17:15 08/01/16 12:10 Robitussin Dm - PO Not Given Q6HPO RINA Furosemide 100 mg/ Dextrose 50 mls @ 5 mls/hr 07/31/16 13:30 08/01/16 03:09 IVPB 5 mls/hr TITR RINA Administration 10 MG/HR Levothyroxine Sodium 75 mcg 07/23/16 07:00 08/01/16 06:11 Synthroid - PO 75 mcg DAILY@0700 RINA Administration Lisinopril 10 mg 07/23/16 10:00 08/01/16 10:14 Prinivil PO 10 mg DAILY RINA Administration Metoprolol Succinate 150 mg 07/26/16 10:00 08/01/16 10:14 Toprol Xl - PO 150 mg DAILY RINA Administration Multi-Ingredient Lotion 1 applic 07/25/16 11:07 07/25/16 17:11 Eucerin (Large Jar) - TP 1 applic DAILY PRN Administration DRY SKIN Potassium Chloride 40 meq 08/01/16 10:00 08/01/16 10:13 K-Dur - PO 08/01/16 22:01 40 meq BID RINA Administration Spironolactone 50 mg 07/30/16 10:00 08/01/16 10:14 Aldactone - PO 50 mg DAILY RINA Administration Tamsulosin HCl 0.4 mg 07/23/16 10:00 08/01/16 10:14 Flomax - PO 0.4 mg DAILY RINA Administration ASSESSMENT/PLAN: 61F systolic CHF, HTN, HLD, hypothyroidism, s/p pacemaker/defibrillator, admitted for abdominal pain. Acute on chronic systolic CHF exacerbation continue lasix gtt at 10mg/hr continue aldactone 50mg po daily cardiology consult appreciated one liter fluid restriction weight continues to decrease continue trend daily weights continue to trend I/O Give one dose oxycodone 5mg for pain ultrasound duplex negative for DVT of bilateral lower extremities Transaminitiis/Abdominal pain likely secondary to hepatic congestion from CHF. states she saw dr. lugo at [facility] who is a apparel trimmings sales representative and he did lab work and told her she was fine. LFTs significantly improved T. Bili trending down AST/ALT WNL Alk Phos stable at 143 will continue to trend CAD/HLD - atorvastatin 20 mg po qhs continue plavix 75mg since allergic to aspirin HTN Well controlled at this time Continue metoprolol and lisinopril Hypothyroidism continue 75mcg synthroid qam DM -not on meds at home HbA1C 6.6 outpt follow up FEN: fluid restriction replete potassium for hypokalemia 40MeQ PO BID x2 doses sodium restricted diet PPx: lovenox no GI ppx needed patient is ambulating Visit type - Emergency Visit Emergency Visit: Yes ED Registration Date: 07/22/16 Care time: The patient presented to the Emergency Department on the above date and was hospitalized for further evaluation of their emergent condition. - New Patient This patient is new to me today: No - Critical Care Critical Care patient: No
--- NOTE | 2016-08-01 14:04 | PN ---
Teaching Attending Note Name of Resident: Cristofer Mckeon ATTENDING PHYSICIAN STATEMENT I saw and evaluated the patient. I reviewed the resident's note and discussed the case with the resident. I agree with the resident's findings and plan as documented. SUBJECTIVE: no fever or chills, cont to have abd pain . cont to have SOB OBJECTIVE: NAD CV : RRR, no MRG Lungs : clear lungs , good air entry . Ext: 2+ pitting edema ABD: soft, TTP in all quadrants, nl BS . Abd wall edema. ASSESSMENT AND PLAN: 61 year old female, with a significant past medical history of hypertension, hypercholesterolemia, CAD, [place](X2, s/pp defibrillator/pacemaker and CABG), CHF, DM II, kidney stones and peripheral neuropathy, and hypothyroidism, admitted for ABd pain . She developed acute CHF 1- Acute on chronic systolic CHF : - cont lasix gtt at current dose . weight has imporved ,. in-accurate documentation of her UOP - cont increased dose of Aldactone - cont BB - cont plavix 2- ABd pain : chronic , worse with Abd wall edema - monitor with diuresis 3- LFTS abnormalities. likely due to hepatic congestion with CHF. improved with diuresis . 4- LE pain R > L , no DVT on US . Likely due to edema . no signs of infection DVT px HLOC
[2016-08-01] MEDS: ATORVASTATIN CA 20 MG TABLET (FP) PO SCH (22:23)
[2016-08-02] MEDS: guaiFENesin/D-METHORPHAN HB 10 ML UNIT-DOSE CUPS PO SCH ×3 (05:36→17:24)
[2016-08-02] MEDS ORDERED: FUROSEMIDE 100 MG/10 ML INJECTABLE VIAL ONE ×3 (05:45→22:14)
[2016-08-02] MEDS: LEVOTHYROXINE NA 75 MCG TABLET (FP) PO SCH (06:16)
[2016-08-02 08:32] LABS: ALBUMIN 2.4 g/dl (3.4-5.0); ANION GAP 9 (8-16); BILIRUBIN,TOTAL 2.9 mg/dL (0.2-1.0); CALCIUM 8.1 mg/dL (8.5-10.1); CO2 34 mmol/L (21-32); CREATININE 0.9 mg/dL (0.55-1.02); GLUCOSE,RANDOM 86 mg/dL (74-106); SGOT/AST 26 U/L (15-37); SGPT/ALT 21 U/L (12-78)
[2016-08-02 08:34] LABS: ALK PHOS 130 U/L (45-117); TOT PROT 5.9 g/dl (6.4-8.2)
[2016-08-02] MEDS: SPIRONOLACTONE 25 MG TABLET (FP) PO SCH (09:53)
[2016-08-02] MEDS: TAMSULOSIN HCL 0.4 MG CAP.ER.24H (FP) PO SCH (09:54)
[2016-08-02] MEDS: ENOXAPARIN NA (PORCINE) 40 MG/0.4 ML DISP.SYRIN SQ SCH (09:54)
[2016-08-02] MEDS: LISINOPRIL 10 MG TABLET (FP) PO SCH (09:54)
[2016-08-02] MEDS: CLOPIDOGREL BISULFATE 75 MG TABLET (FP) PO SCH (09:54)
[2016-08-02] MEDS: METOPROLOL SUCCINATE 50 MG TAB.SR.24H (FP) PO SCH (09:55)
[2016-08-02] MEDS: FUROSEMIDE INJECTION 100 MG in DEXTROSE 5%-WATER - 40 ML IVPB SCH ×3 (10:06→22:16)
--- NOTE | 2016-08-02 11:58 | PN ---
Physical Exam: SUBJECTIVE: Patient seen and examined. patient wanted lasix gtt stopped this AM and nurse stopped it. I convinced her how well she was doing with the lasix gtt and she was agreeable to restart it. PAtient continue to decrease her weight as more and more fluid is being diuresed off. OBJECTIVE: Vital Signs Period Temp Pulse Resp BP Sys/Santoro Pulse Ox Last 24 Hr 98.5 F-98.5 F 70-75 18-20 96-123/56-72 96 GENERAL: The patient is awake and alert EYES: PERRL ENT: moist mucous membranes. NECK: supple. LUNGS: CTAB HEART: Regular rate and rhythm ABDOMEN: Soft, tender to palpation EXTREMITIES: 2+ pitting edema up to umbilicus with erythema of bilateral lower extremities. lower extremities are tender to palpation. pitting edema significantly improved. bilateral lower extremities' circumference is much less today. NEUROLOGICAL: Cranial nerves II through XII grossly intact Laboratory Results - last 24 hr 08/02/16 06:10 Sodium 139 Potassium 3.6 Chloride 96 L Carbon Dioxide 34 H Anion Gap 9 BUN 11 D Creatinine 0.9 D Creat Clearance w eGFR > 60 Random Glucose 86 Calcium 8.1 L Total Bilirubin 2.9 H D AST 26 ALT 21 Alkaline Phosphatase 130 H Total Protein 5.9 L Albumin 2.4 L Active Medications Generic Name Dose Route Start Last Admin Trade Name Freq PRN Reason Stop Dose Admin Atorvastatin Calcium 20 mg 07/23/16 22:00 08/01/16 22:23 Lipitor - PO 20 mg HS RINA Administration Calamine 1 applic 07/24/16 21:49 07/25/16 09:44 Calamine 8% Topical Lotion - TP 1 applic BID PRN Administration FOR ITCHING Clopidogrel Bisulfate 75 mg 07/29/16 12:15 08/02/16 09:54 Plavix - PO 75 mg DAILY RINA Administration Enoxaparin Sodium 40 mg 07/23/16 10:00 08/02/16 09:54 Lovenox - SQ Not Given DAILY RINA Guaifenesin 10 ml 07/22/16 17:15 08/02/16 05:36 Robitussin Dm - PO Not Given Q6HPO RINA Furosemide 100 mg/ Dextrose 50 mls @ 5 mls/hr 07/31/16 13:30 08/02/16 10:06 IVPB 5 mls/hr TITR RINA Administration 10 MG/HR Levothyroxine Sodium 75 mcg 07/23/16 07:00 08/02/16 06:16 Synthroid - PO 75 mcg DAILY@0700 RINA Administration Lisinopril 10 mg 07/23/16 10:00 08/02/16 09:54 Prinivil PO Not Given DAILY RINA Metoprolol Succinate 150 mg 07/26/16 10:00 08/02/16 09:55 Toprol Xl - PO Not Given DAILY RINA Multi-Ingredient Lotion 1 applic 07/25/16 11:07 07/25/16 17:11 Eucerin (Large Jar) - TP 1 applic DAILY PRN Administration DRY SKIN Potassium Chloride 40 meq 08/02/16 10:00 K-Dur - PO 08/02/16 22:01 BID RINA Spironolactone 50 mg 07/30/16 10:00 08/02/16 09:53 Aldactone - PO 50 mg DAILY RINA Administration Tamsulosin HCl 0.4 mg 07/23/16 10:00 08/02/16 09:54 Flomax - PO 0.4 mg DAILY RINA Administration ASSESSMENT/PLAN: 61F systolic CHF, HTN, HLD, hypothyroidism, s/p pacemaker/defibrillator, admitted for abdominal pain. Acute on chronic systolic CHF exacerbation continue lasix gtt at 10mg/hr continue aldactone 50mg po daily cardiology consult appreciated one liter fluid restriction weight continues to decrease 80Kg today continue trend daily weights continue to trend I/O pain control ultrasound duplex negative for DVT of bilateral lower extremities still not ready for PO diueretic therapy Transaminitis/Abdominal pain-elevated LFTs significantly improved. as she is diuresed the LFTs are improving which likely means she has hepatic congestion from CHF likely secondary to hepatic congestion from CHF. states she saw dr. lugo at [facility] who is a automated access systems technician and he did lab work and told her she was fine. LFTs significantly improved T. Bili bumped up today AST/ALT WNL Alk Phos improved-130 will continue to trend CAD/HLD - atorvastatin 20 mg po qhs continue plavix 75mg since allergic to aspirin HTN Well controlled at this time Continue metoprolol and lisinopril Hypothyroidism continue 75mcg synthroid qam DM -not on meds at home HbA1C 6.6 outpt follow up FEN: fluid restriction replete potassium for hypokalemia 40MeQ PO BID x2 doses sodium restricted diet PPx: lovenox no GI ppx needed patient is ambulating Visit type - Emergency Visit Emergency Visit: Yes ED Registration Date: 07/22/16 Care time: The patient presented to the Emergency Department on the above date and was hospitalized for further evaluation of their emergent condition. - New Patient This patient is new to me today: No - Critical Care Critical Care patient: No
[2016-08-02] MEDS: POTASSIUM CHLORIDE TABS 20 MEQ TABLET.ER (FP) PO SCH ×2 (13:45→22:11)
--- NOTE | 2016-08-02 15:19 | PN ---
Teaching Attending Note Name of Resident: Cristofer Mckeon ATTENDING PHYSICIAN STATEMENT I saw and evaluated the patient. I reviewed the resident's note and discussed the case with the resident. I agree with the resident's findings and plan as documented. Patient is feeling better, legs are less swollen today Vital Signs Temperature 98.5 F 08/02/16 13:47 Pulse Rate 81 08/02/16 13:47 Respiratory Rate 20 08/02/16 13:47 Blood Pressure 114/72 08/02/16 13:47 O2 Sat by Pulse Oximetry (%) 96 08/02/16 09:00 CBCD WBC 8.1 K/mm3 (4.0-10.0) 07/23/16 05:45 RBC 4.56 M/mm3 (3.60-5.2) 07/23/16 05:45 Hgb 11.9 GM/dL (10.7-15.3) 07/23/16 05:45 Hct 37.7 % (32.4-45.2) 07/23/16 05:45 MCV 82.6 fl (80-96) 07/23/16 05:45 MCHC 31.6 g/dl (32.0-36.0) L 07/23/16 05:45 RDW 21.1 % (11.6-15.6) H 07/23/16 05:45 Plt Count 197 K/MM3 (134-434) 07/23/16 05:45 MPV 8.3 fl (7.5-11.1) 07/23/16 05:45 CMP Sodium 139 mmol/L (136-145) 08/02/16 06:10 Potassium 3.6 mmol/L (3.5-5.1) 08/02/16 06:10 Chloride 96 mmol/L (98-107) L 08/02/16 06:10 Carbon Dioxide 34 mmol/L (21-32) H 08/02/16 06:10 Anion Gap 9 (8-16) 08/02/16 06:10 BUN 11 mg/dL (7-18) D 08/02/16 06:10 Creatinine 0.9 mg/dL (0.55-1.02) D 08/02/16 06:10 Creat Clearance w eGFR > 60 (>60) 08/02/16 06:10 Random Glucose 86 mg/dL (74-106) 08/02/16 06:10 Calcium 8.1 mg/dL (8.5-10.1) L 08/02/16 06:10 Total Bilirubin 2.9 mg/dL (0.2-1.0) H D 08/02/16 06:10 AST 26 U/L (15-37) 08/02/16 06:10 ALT 21 U/L (12-78) 08/02/16 06:10 Alkaline Phosphatase 130 U/L (45-117) H 08/02/16 06:10 Total Protein 5.9 g/dl (6.4-8.2) L 08/02/16 06:10 Albumin 2.4 g/dl (3.4-5.0) L 08/02/16 06:10 CARDIAC ENZYMES Creatine Kinase 247 IU/L (26-192) H D 07/22/16 14:55 Troponin I 0.18 ng/ml (0.00-0.05) H 07/22/16 14:55 Current Medications Generic Name Dose Route Start Last Admin Trade Name Freq PRN Reason Stop Dose Admin Atorvastatin Calcium 20 mg 07/23/16 22:00 08/01/16 22:23 Lipitor - PO 20 mg HS RINA Administration Calamine 1 applic 07/24/16 21:49 07/25/16 09:44 Calamine 8% Topical Lotion - TP 1 applic BID PRN Administration FOR ITCHING Clopidogrel Bisulfate 75 mg 07/29/16 12:15 08/02/16 09:54 Plavix - PO 75 mg DAILY RINA Administration Enoxaparin Sodium 40 mg 07/23/16 10:00 08/02/16 09:54 Lovenox - SQ Not Given DAILY RINA Guaifenesin 10 ml 07/22/16 17:15 08/02/16 13:40 Robitussin Dm - PO Not Given Q6HPO RINA Furosemide 100 mg/ Dextrose 50 mls @ 5 mls/hr 07/31/16 13:30 08/02/16 13:40 IVPB Not Given TITR RINA 10 MG/HR Levothyroxine Sodium 75 mcg 07/23/16 07:00 08/02/16 06:16 Synthroid - PO 75 mcg DAILY@0700 RINA Administration Lisinopril 10 mg 07/23/16 10:00 08/02/16 09:54 Prinivil PO Not Given DAILY RINA Metoprolol Succinate 150 mg 07/26/16 10:00 08/02/16 09:55 Toprol Xl - PO Not Given DAILY [facility] Multi-Ingredient Lotion 1 applic 07/25/16 11:07 07/25/16 17:11 Eucerin (Large Jar) - TP 1 applic DAILY PRN Administration DRY SKIN Potassium Chloride 40 meq 08/02/16 10:00 08/02/16 13:45 K-Dur - PO 08/02/16 22:01 40 meq BID RINA Administration Spironolactone 50 mg 07/30/16 10:00 08/02/16 09:53 Aldactone - PO 50 mg DAILY RINA Administration Tamsulosin HCl 0.4 mg 07/23/16 10:00 08/02/16 09:54 Flomax - PO 0.4 mg DAILY RINA Administration Home Medications Medication Instructions Recorded Amlodipine Besylate 10 mg PO DAILY 07/09/16 Atorvastatin Ca [Lipitor] 20 mg PO DAILY 07/09/16 Furosemide 40 mg PO DAILY 07/09/16 Levothyroxine [Synthroid -] 75 mcg PO DAILY 07/09/16 Lisinopril [Prinivil] 20 mg PO DAILY 07/09/16 Metoprolol Succinate [Toprol Xl] 200 mg PO DAILY 07/09/16 Potassium Chloride 20 meq PO DAILY 07/09/16 Tamsulosin HCl [Flomax -] 0.4 mg PO DAILY 07/09/16 Lisinopril 10 mg PO DAILY #30 tablet 07/14/16 Spironolactone [Aldactone -] 25 mg PO DAILY #30 tablet 07/14/16 ASSESSMENT AND PLAN: Patient is a 61 year old female, with PMHx of hypertension, hypercholesterolemia , CAD, [place](X2, s/pp defibrillator/pacemaker and CABG), CHF, DM II, kidney stones and peripheral neuropathy, and hypothyroidism, admitted for ABd pain . She developed acute CHF # Acute on chronic systolic CHF on Lasix Drip will continue also continue Aldactone 50mg po daily # Chjronic ABd pain : that worsen with Abd wall edema, on IV Lasix for now - monitor with diuresis # LFTS abnormalities. likely due to hepatic congestion with CHF. improved with diuresis . # LE pain R > L , no DVT on US . Likely due to edema . no signs of infection DVT px heparin, SCD
[2016-08-02] MEDS: ATORVASTATIN CA 20 MG TABLET (FP) PO SCH (22:11)
[2016-08-03] MEDS: LEVOTHYROXINE NA 75 MCG TABLET (FP) PO SCH (06:24)
[2016-08-03] MEDS: guaiFENesin/D-METHORPHAN HB 10 ML UNIT-DOSE CUPS PO SCH ×4 (06:24→17:38)
[2016-08-03 08:09] LABS: ALBUMIN 2.6 g/dl (3.4-5.0); ALK PHOS 133 U/L (45-117); ANION GAP 7 (8-16); BILIRUBIN,TOTAL 3.4 mg/dL (0.2-1.0); CALCIUM 8.7 mg/dL (8.5-10.1); CO2 33 mmol/L (21-32); CREATININE 0.8 mg/dL (0.55-1.02); GLUCOSE,RANDOM 86 mg/dL (74-106); SGOT/AST 25 U/L (15-37); SGPT/ALT 22 U/L (12-78); TOT PROT 6.3 g/dl (6.4-8.2)
[2016-08-03] MEDS: TAMSULOSIN HCL 0.4 MG CAP.ER.24H (FP) PO SCH ×2 (10:17→10:20)
[2016-08-03] MEDS: SPIRONOLACTONE 25 MG TABLET (FP) PO SCH (10:17)
[2016-08-03] MEDS: ENOXAPARIN NA (PORCINE) 40 MG/0.4 ML DISP.SYRIN SQ SCH (10:17)
[2016-08-03] MEDS: CLOPIDOGREL BISULFATE 75 MG TABLET (FP) PO SCH (10:18)
[2016-08-03] MEDS: LISINOPRIL 10 MG TABLET (FP) PO SCH (10:18)
[2016-08-03] MEDS: METOPROLOL SUCCINATE 50 MG TAB.SR.24H (FP) PO SCH (10:18)
--- NOTE | 2016-08-03 13:57 | PN ---
Physical Exam: SUBJECTIVE: Patient seen and examined. feels much better today in much better spirits today now that she sees her edema decreasing Does not want the lasix gtt anymore would like to go back to IV pushes OBJECTIVE: Vital Signs Period Temp Pulse Resp BP Sys/Santoro Pulse Ox Last 24 Hr 98.4 F-98.6 F 77-87 20-20 105-127/55-76 96 GENERAL: The patient is awake and alert EYES: PERRL ENT: moist mucous membranes. NECK: supple. LUNGS: CTAB HEART: Regular rate and rhythm ABDOMEN: Soft, tender to palpation EXTREMITIES: 1+ pitting edema up to umbilicus with erythema of bilateral lower extremities. lower extremities are tender to palpation. pitting edema significantly improved. bilateral lower extremities' circumference is much less today. PAtient has lost 7Kg from yesterday to today NEUROLOGICAL: Cranial nerves II through XII grossly intact Laboratory Results - last 24 hr 08/03/16 06:20 Sodium 135 L Potassium 3.7 Chloride 95 L Carbon Dioxide 33 H Anion Gap 7 L BUN 11 Creatinine 0.8 Creat Clearance w eGFR > 60 Random Glucose 86 Calcium 8.7 Total Bilirubin 3.4 H AST 25 ALT 22 Alkaline Phosphatase 133 H Total Protein 6.3 L Albumin 2.6 L Active Medications Generic Name Dose Route Start Last Admin Trade Name Freq PRN Reason Stop Dose Admin Atorvastatin Calcium 20 mg 07/23/16 22:00 08/02/16 22:11 Lipitor - PO 20 mg HS RINA Administration Calamine 1 applic 07/24/16 21:49 07/25/16 09:44 Calamine 8% Topical Lotion - TP 1 applic BID PRN Administration FOR ITCHING Clopidogrel Bisulfate 75 mg 07/29/16 12:15 08/03/16 10:18 Plavix - PO 75 mg DAILY RINA Administration Enoxaparin Sodium 40 mg 07/23/16 10:00 08/03/16 10:17 Lovenox - SQ Not Given DAILY RINA Furosemide 80 mg 08/03/16 14:00 Lasix Injection - IVPUSH Q8H RINA Guaifenesin 10 ml 07/22/16 17:15 08/03/16 06:24 Robitussin Dm - PO Not Given Q6HPO RINA Levothyroxine Sodium 75 mcg 07/23/16 07:00 08/03/16 06:24 Synthroid - PO 75 mcg DAILY@0700 RINA Administration Lisinopril 10 mg 07/23/16 10:00 08/03/16 10:18 Prinivil PO 10 mg DAILY RINA Administration Metoprolol Succinate 150 mg 07/26/16 10:00 08/03/16 10:18 Toprol Xl - PO 150 mg DAILY RINA Administration Multi-Ingredient Lotion 1 applic 07/25/16 11:07 07/25/16 17:11 Eucerin (Large Jar) - TP 1 applic DAILY PRN Administration DRY SKIN Potassium Chloride 40 meq 08/03/16 13:30 K-Dur - PO 08/03/16 22:01 BID RINA Spironolactone 50 mg 07/30/16 10:00 08/03/16 10:17 Aldactone - PO 50 mg DAILY RINA Administration Tamsulosin HCl 0.4 mg 07/23/16 10:00 08/03/16 10:20 Flomax - PO Not Given DAILY RINA ASSESSMENT/PLAN: 61F systolic CHF, HTN, HLD, hypothyroidism, s/p pacemaker/defibrillator, admitted for abdominal pain. Acute on chronic systolic CHF exacerbation stop lasix gtt at 10mg/hr LAsix gtt at 10mg/hr is 240mg/day will give 80mg q8h IVPB instead continue aldactone 50mg po daily cardiology consult appreciated one liter fluid restriction weight continues to decrease 73Kg today continue trend daily weights continue to trend I/O pain control ultrasound duplex negative for DVT of bilateral lower extremities still not ready for PO diueretic therapy Transaminitis/Abdominal pain-elevated LFTs significantly improved. as she is diuresed the LFTs are improving which likely means she has hepatic congestion from CHF likely secondary to hepatic congestion from CHF. states she saw dr. lugo at [facility] who is a boil off worker and he did lab work and told her she was fine. LFTs significantly improved T. Bili bumped up even more today AST/ALT WNL Alk Phos stable will continue to trend CAD/HLD - atorvastatin 20 mg po qhs continue plavix 75mg since allergic to aspirin HTN Well controlled at this time Continue metoprolol and lisinopril Hypothyroidism continue 75mcg synthroid qam DM -not on meds at home HbA1C 6.6 outpt follow up FEN: fluid restriction replete potassium for hypokalemia 40MeQ PO BID x2 doses sodium restricted diet PPx: lovenox no GI ppx needed patient is ambulating Visit type - Emergency Visit Emergency Visit: Yes ED Registration Date: 07/22/16 Care time: The patient presented to the Emergency Department on the above date and was hospitalized for further evaluation of their emergent condition. - New Patient This patient is new to me today: No - Critical Care Critical Care patient: No
[2016-08-03] MEDS: FUROSEMIDE 40 MG/4 ML INJECTABLE VIAL IVPUSH SCH ×2 (15:14→22:10)
[2016-08-03] MEDS: POTASSIUM CHLORIDE TABS 20 MEQ TABLET.ER (FP) PO SCH ×2 (15:14→22:10)
[2016-08-03 15:30] LABS: MAGNESIUM 1.8 mg/dL (1.8-2.4)
[2016-08-03] MEDS ORDERED: MAGNESIUM OXIDE 400 MG TABLET (FP) PO ONE (15:51)
[2016-08-03] MEDS: FUROSEMIDE INJECTION 100 MG in DEXTROSE 5%-WATER - 40 ML IVPB SCH (17:44)
--- NOTE | 2016-08-03 18:22 | PN ---
Progress Note, Physician Chief Complaint: Pt is sitting OOB in chair. No chest pain; no resting dyspnea. History of Present Illness: he patient is a 61 year old black female, with a significant past medical history of hypertension, hypercholesterolemia, CAD, [place](X2, s/pp defibrillator/ pacemaker and CABG), severe systolic CHF, DM, kidney stones and peripheral neuropathy, and hypothyroidism, who presents to the emergency department complaining of abdominal pain since last night. The patient was recently admitted at [facility] on 07/09/16 for bilateral lower extremity edema and chest pain. Since her discharge on 07/14/16 the patient reports she was feeling better. However, last night she began to experience difficulty breathing and diffuse abdominal pain. The patient reports her abdominal pain is worse below the umbilicus. She reports associated nonproductive cough and chills, but denies fever, headache, or dizziness. The patient reports bilateral lower extremity edema that is part of her baseline, but states that fluid is coming out of her leg. The patient denies any diaphoresis or palpitations. The patient denies nausea, vomiting, diarrhea, or constipation. The patient denies any dysuria, hematuria, frequency, or urgency. Allergies: Aspirin Past Surgical History: PEG tube placement, stent placement x2, CABG(2003), ICD/ Pacemaker(11/2014), Cholecystectomy (04/2016) Social History: Current everyday smoker(5 cigarettes per day). Denies alcohol or drug use. PCP: Dr. 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 San ([phone]) - Current Medication List Current Medications: Active Medications Atorvastatin Calcium (Lipitor -) 20 mg PO HS [facility] Last Admin: 08/02/16 22:11 Dose: 20 mg Calamine (Calamine 8% Topical Lotion -) 1 applic TP BID PRN PRN Reason: FOR ITCHING Last Admin: 07/25/16 09:44 Dose: 1 applic Clopidogrel Bisulfate (Plavix -) 75 mg PO DAILY [facility] Last Admin: 08/03/16 10:18 Dose: 75 mg Enoxaparin Sodium (Lovenox -) 40 mg SQ DAILY [facility] Last Admin: 08/03/16 10:17 Dose: Not Given Furosemide (Lasix Injection -) 80 mg IVPUSH TID [facility] Last Admin: 08/03/16 15:14 Dose: 80 mg Guaifenesin (Robitussin Dm -) 10 ml PO Q6HPO [facility] Last Admin: 08/03/16 17:38 Dose: Not Given Levothyroxine Sodium (Synthroid -) 75 mcg PO DAILY@0700 [facility] Last Admin: 08/03/16 06:24 Dose: 75 mcg Lisinopril (Prinivil) 10 mg PO DAILY [facility] Last Admin: 08/03/16 10:18 Dose: 10 mg Metoprolol Succinate (Toprol Xl -) 150 mg PO DAILY [facility] Last Admin: 08/03/16 10:18 Dose: 150 mg Multi-Ingredient Lotion (Eucerin (Large Jar) -) 1 applic TP DAILY PRN PRN Reason: DRY SKIN Last Admin: 07/25/16 17:11 Dose: 1 applic Potassium Chloride (K-Dur -) 40 meq PO BID [facility] Stop: 08/03/16 22:01 Last Admin: 08/03/16 15:14 Dose: 40 meq Spironolactone (Aldactone -) 50 mg PO DAILY [facility] Last Admin: 08/03/16 10:17 Dose: 50 mg Tamsulosin HCl (Flomax -) 0.4 mg PO DAILY [facility] Last Admin: 08/03/16 10:20 Dose: Not Given - Objective Vital Signs: Vital Signs Temperature 97.3 F L 08/03/16 15:07 Pulse Rate 78 08/03/16 15:07 Respiratory Rate 20 08/03/16 15:07 Blood Pressure 114/70 08/03/16 15:07 O2 Sat by Pulse Oximetry (%) 98 08/03/16 09:00 Constitutional: Yes: Calm Eyes: Yes: WNL HENT: Yes: WNL Neck: Yes: WNL Cardiovascular: Yes: Pulse Irregular Respiratory: Yes: Rales (few scattered rales; fair air entry) Gastrointestinal: Yes: Soft ...Rectal Exam: Yes: Deferred Genitourinary: No: Anuria Breast(s): Yes: WNL Musculoskeletal: Yes: Muscle Weakness Extremities: Yes: Cool Edema: Yes Edema: LLE: 1+, RLE: Trace Peripheral Pulses WNL: No Peripheral Pulses: Left Doralis Pedis: 1+, Right Dorsalis Pedis: 1+ Integumentary: Yes: Venous Stasis Changes Neurological: Yes: Alert, Oriented, Weakness Psychiatric: Yes: WNL Labs: CBC, BMP 07/23/16 05:45 08/03/16 06:20 INR, PTT INR 1.85 (0.82-1.09) H 07/22/16 13:10 Abnormal Lab Results 08/03/16 06:20 Sodium 135 L Chloride 95 L Carbon Dioxide 33 H Anion Gap 7 L Total Bilirubin 3.4 H Alkaline Phosphatase 133 H Total Protein 6.3 L Albumin 2.6 L Problem List - Problems (1) Anasarca Code(s): R60.1 - GENERALIZED EDEMA (2) Cardiac cirrhosis Code(s): K76.1 - CHRONIC PASSIVE CONGESTION OF LIVER (3) Abdominal discomfort Code(s): R10.9 - UNSPECIFIED ABDOMINAL PAIN (4) Acute combined systolic and diastolic ACC/AHA stage C congestive heart failure Assessment/Plan: Despite increase in weight today, the pt appears clinically improved; no JVD; clear lungs; no PND or orthopnea; better ambulation. IV furosemide (pt refused to continue IV drip; now on 80 mg IV q8h; may decrease dose and change to PO). F/u Is and Os, daily weight, electrolytes, BUN/Cr. CXR (PA and Lat) today. Code(s): I50.41 - ACUTE COMBINED SYSTOLIC AND DIASTOLIC (CONGESTIVE) HRT FAIL (5) Dyspepsia Code(s): K30 - FUNCTIONAL DYSPEPSIA (6) Hyperbilirubinemia Assessment/Plan: improving LFTS and bilirubin Code(s): E80.6 - OTHER DISORDERS OF BILIRUBIN METABOLISM (7) Hypertension Code(s): I10 - ESSENTIAL (PRIMARY) HYPERTENSION (8) Hypothyroidism Code(s): E03.9 - HYPOTHYROIDISM, UNSPECIFIED (9) Tobacco use disorder Assessment/Plan: Smoking cessation is critical for pt, but difficult for her to adhere to. Code(s): Z72.0 - TOBACCO USE (10) Risk for coronary artery disease greater than 20% in next 10 years Code(s): Z91.89 - OTH PERSONAL RISK FACTORS, NOT ELSEWHERE CLASSIFIED
--- NOTE | 2016-08-03 21:54 | PN ---
Teaching Attending Note Name of Resident: Cristofer Mckeon ATTENDING PHYSICIAN STATEMENT I saw and evaluated the patient. I reviewed the resident's note and discussed the case with the resident. I agree with the resident's findings and plan as documented. Vital Signs Temperature 97 F L 08/03/16 17:20 Pulse Rate 78 08/03/16 17:20 Respiratory Rate 20 08/03/16 17:20 Blood Pressure 116/79 08/03/16 17:20 O2 Sat by Pulse Oximetry (%) 98 08/03/16 09:00 CBCD WBC 8.1 K/mm3 (4.0-10.0) 07/23/16 05:45 RBC 4.56 M/mm3 (3.60-5.2) 07/23/16 05:45 Hgb 11.9 GM/dL (10.7-15.3) 07/23/16 05:45 Hct 37.7 % (32.4-45.2) 07/23/16 05:45 MCV 82.6 fl (80-96) 07/23/16 05:45 MCHC 31.6 g/dl (32.0-36.0) L 07/23/16 05:45 RDW 21.1 % (11.6-15.6) H 07/23/16 05:45 Plt Count 197 K/MM3 (134-434) 07/23/16 05:45 MPV 8.3 fl (7.5-11.1) 07/23/16 05:45 CMP Sodium 135 mmol/L (136-145) L 08/03/16 06:20 Potassium 3.7 mmol/L (3.5-5.1) 08/03/16 06:20 Chloride 95 mmol/L (98-107) L 08/03/16 06:20 Carbon Dioxide 33 mmol/L (21-32) H 08/03/16 06:20 Anion Gap 7 (8-16) L 08/03/16 06:20 BUN 11 mg/dL (7-18) 08/03/16 06:20 Creatinine 0.8 mg/dL (0.55-1.02) 08/03/16 06:20 Creat Clearance w eGFR > 60 (>60) 08/03/16 06:20 Random Glucose 86 mg/dL (74-106) 08/03/16 06:20 Calcium 8.7 mg/dL (8.5-10.1) 08/03/16 06:20 Total Bilirubin 3.4 mg/dL (0.2-1.0) H 08/03/16 06:20 AST 25 U/L (15-37) 08/03/16 06:20 ALT 22 U/L (12-78) 08/03/16 06:20 Alkaline Phosphatase 133 U/L (45-117) H 08/03/16 06:20 Total Protein 6.3 g/dl (6.4-8.2) L 08/03/16 06:20 Albumin 2.6 g/dl (3.4-5.0) L 08/03/16 06:20 CARDIAC ENZYMES Creatine Kinase 247 IU/L (26-192) H D 07/22/16 14:55 Troponin I 0.18 ng/ml (0.00-0.05) H 07/22/16 14:55 Current Medications Generic Name Dose Route Start Last Admin Trade Name Freq PRN Reason Stop Dose Admin Atorvastatin Calcium 20 mg 07/23/16 22:00 08/02/16 22:11 Lipitor - PO 20 mg HS RINA Administration Calamine 1 applic 07/24/16 21:49 07/25/16 09:44 Calamine 8% Topical Lotion - TP 1 applic BID PRN Administration FOR ITCHING Clopidogrel Bisulfate 75 mg 07/29/16 12:15 08/03/16 10:18 Plavix - PO 75 mg DAILY RINA Administration Enoxaparin Sodium 40 mg 07/23/16 10:00 08/03/16 10:17 Lovenox - SQ Not Given DAILY [facility] Furosemide 80 mg 08/03/16 14:00 08/03/16 15:14 Lasix Injection - IVPUSH 80 mg TID RINA Administration Guaifenesin 10 ml 07/22/16 17:15 08/03/16 17:38 Robitussin Dm - PO Not Given Q6HPO [facility] Levothyroxine Sodium 75 mcg 07/23/16 07:00 08/03/16 06:24 Synthroid - PO 75 mcg DAILY@0700 RINA Administration Lisinopril 10 mg 07/23/16 10:00 08/03/16 10:18 Prinivil PO 10 mg DAILY RINA Administration Metoprolol Succinate 150 mg 07/26/16 10:00 08/03/16 10:18 Toprol Xl - PO 150 mg DAILY RINA Administration Multi-Ingredient Lotion 1 applic 07/25/16 11:07 07/25/16 17:11 Eucerin (Large Jar) - TP 1 applic DAILY PRN Administration DRY SKIN Potassium Chloride 40 meq 08/03/16 13:30 08/03/16 15:14 K-Dur - PO 08/03/16 22:01 40 meq BID RINA Administration Spironolactone 50 mg 07/30/16 10:00 08/03/16 10:17 Aldactone - PO 50 mg DAILY RINA Administration Tamsulosin HCl 0.4 mg 07/23/16 10:00 08/03/16 10:20 Flomax - PO Not Given DAILY [facility] Home Medications Medication Instructions Recorded Amlodipine Besylate 10 mg PO DAILY 07/09/16 Atorvastatin Ca [Lipitor] 20 mg PO DAILY 07/09/16 Furosemide 40 mg PO DAILY 07/09/16 Levothyroxine [Synthroid -] 75 mcg PO DAILY 07/09/16 Lisinopril [Prinivil] 20 mg PO DAILY 07/09/16 Metoprolol Succinate [Toprol Xl] 200 mg PO DAILY 07/09/16 Potassium Chloride 20 meq PO DAILY 07/09/16 Tamsulosin HCl [Flomax -] 0.4 mg PO DAILY 07/09/16 Lisinopril 10 mg PO DAILY #30 tablet 07/14/16 Spironolactone [Aldactone -] 25 mg PO DAILY #30 tablet 07/14/16 ASSESSMENT AND PLAN: Patient is a 61 year old female, with PMHx of hypertension, hypercholesterolemia , CAD, [place](X2, s/pp defibrillator/pacemaker and CABG), CHF, DM II, kidney stones and peripheral neuropathy, and hypothyroidism, admitted for ABd pain . She developed acute CHF # Acute on chronic systolic CHF on Lasix Drip will continue also continue Aldactone 50mg po daily # Chjronic ABd pain : that worsen with Abd wall edema, on IV Lasix for now - monitor with diuresis # LFTS abnormalities. likely due to hepatic congestion with CHF. improved with diuresis . # LE pain R > L , no DVT on US . Likely due to edema . no signs of infection DVT px heparin, SCD
[2016-08-03] MEDS: ATORVASTATIN CA 20 MG TABLET (FP) PO SCH (22:10)
[2016-08-04] MEDS: guaiFENesin/D-METHORPHAN HB 10 ML UNIT-DOSE CUPS PO SCH ×4 (06:00→17:21)
[2016-08-04] MEDS: FUROSEMIDE 40 MG/4 ML INJECTABLE VIAL IVPUSH SCH ×3 (06:11→21:47)
[2016-08-04] MEDS: LEVOTHYROXINE NA 75 MCG TABLET (FP) PO SCH (06:15)
--- NOTE | 2016-08-04 08:03 | PN ---
Teaching Attending Note Name of Resident: Cristofer Mckeon ATTENDING PHYSICIAN STATEMENT I saw and evaluated the patient. I reviewed the resident's note and discussed the case with the resident. I agree with the resident's findings and plan as documented. Vital Signs Temperature 98.5 F 08/04/16 06:41 Pulse Rate 74 08/04/16 06:41 Respiratory Rate 16 08/04/16 06:41 Blood Pressure 96/61 08/04/16 06:41 O2 Sat by Pulse Oximetry (%) 98 08/03/16 21:00 CBCD WBC 8.1 K/mm3 (4.0-10.0) 07/23/16 05:45 RBC 4.56 M/mm3 (3.60-5.2) 07/23/16 05:45 Hgb 11.9 GM/dL (10.7-15.3) 07/23/16 05:45 Hct 37.7 % (32.4-45.2) 07/23/16 05:45 MCV 82.6 fl (80-96) 07/23/16 05:45 MCHC 31.6 g/dl (32.0-36.0) L 07/23/16 05:45 RDW 21.1 % (11.6-15.6) H 07/23/16 05:45 Plt Count 197 K/MM3 (134-434) 07/23/16 05:45 MPV 8.3 fl (7.5-11.1) 07/23/16 05:45 CMP Sodium 135 mmol/L (136-145) L 08/03/16 06:20 Potassium 3.7 mmol/L (3.5-5.1) 08/03/16 06:20 Chloride 95 mmol/L (98-107) L 08/03/16 06:20 Carbon Dioxide 33 mmol/L (21-32) H 08/03/16 06:20 Anion Gap 7 (8-16) L 08/03/16 06:20 BUN 11 mg/dL (7-18) 08/03/16 06:20 Creatinine 0.8 mg/dL (0.55-1.02) 08/03/16 06:20 Creat Clearance w eGFR > 60 (>60) 08/03/16 06:20 Random Glucose 86 mg/dL (74-106) 08/03/16 06:20 Calcium 8.7 mg/dL (8.5-10.1) 08/03/16 06:20 Total Bilirubin 3.4 mg/dL (0.2-1.0) H 08/03/16 06:20 AST 25 U/L (15-37) 08/03/16 06:20 ALT 22 U/L (12-78) 08/03/16 06:20 Alkaline Phosphatase 133 U/L (45-117) H 08/03/16 06:20 Total Protein 6.3 g/dl (6.4-8.2) L 08/03/16 06:20 Albumin 2.6 g/dl (3.4-5.0) L 08/03/16 06:20 CARDIAC ENZYMES Creatine Kinase 247 IU/L (26-192) H D 07/22/16 14:55 Troponin I 0.18 ng/ml (0.00-0.05) H 07/22/16 14:55 Current Medications Generic Name Dose Route Start Last Admin Trade Name Freq PRN Reason Stop Dose Admin Atorvastatin Calcium 20 mg 07/23/16 22:00 08/03/16 22:10 Lipitor - PO 20 mg HS RINA Administration Calamine 1 applic 07/24/16 21:49 07/25/16 09:44 Calamine 8% Topical Lotion - TP 1 applic BID PRN Administration FOR ITCHING Clopidogrel Bisulfate 75 mg 07/29/16 12:15 08/03/16 10:18 Plavix - PO 75 mg DAILY RINA Administration Enoxaparin Sodium 40 mg 07/23/16 10:00 08/03/16 10:17 Lovenox - SQ Not Given DAILY RINA Furosemide 80 mg 08/03/16 14:00 08/04/16 06:11 Lasix Injection - IVPUSH 80 mg TID RINA Administration Guaifenesin 10 ml 07/22/16 17:15 08/04/16 06:00 Robitussin Dm - PO Not Given Q6HPO [facility] Levothyroxine Sodium 75 mcg 07/23/16 07:00 08/04/16 06:15 Synthroid - PO 75 mcg DAILY@0700 RINA Administration Lisinopril 10 mg 07/23/16 10:00 08/03/16 10:18 Prinivil PO 10 mg DAILY RINA Administration Metoprolol Succinate 150 mg 07/26/16 10:00 08/03/16 10:18 Toprol Xl - PO 150 mg DAILY RINA Administration Multi-Ingredient Lotion 1 applic 07/25/16 11:07 07/25/16 17:11 Eucerin (Large Jar) - TP 1 applic DAILY PRN Administration DRY SKIN Spironolactone 50 mg 07/30/16 10:00 08/03/16 10:17 Aldactone - PO 50 mg DAILY RINA Administration Tamsulosin HCl 0.4 mg 07/23/16 10:00 08/03/16 10:20 Flomax - PO Not Given DAILY [facility] Home Medications Medication Instructions Recorded Amlodipine Besylate 10 mg PO DAILY 07/09/16 Atorvastatin Ca [Lipitor] 20 mg PO DAILY 07/09/16 Furosemide 40 mg PO DAILY 07/09/16 Levothyroxine [Synthroid -] 75 mcg PO DAILY 07/09/16 Lisinopril [Prinivil] 20 mg PO DAILY 07/09/16 Metoprolol Succinate [Toprol Xl] 200 mg PO DAILY 07/09/16 Potassium Chloride 20 meq PO DAILY 07/09/16 Tamsulosin HCl [Flomax -] 0.4 mg PO DAILY 07/09/16 Lisinopril 10 mg PO DAILY #30 tablet 07/14/16 Spironolactone [Aldactone -] 25 mg PO DAILY #30 tablet 07/14/16 ASSESSMENT AND PLAN: Patient is a 61 year old female, with PMHx of hypertension, hypercholesterolemia , CAD, [place](X2, s/pp defibrillator/pacemaker and CABG), CHF, DM II, kidney stones and peripheral neuropathy, and hypothyroidism, admitted for ABd pain . She developed acute CHF # Acute on chronic systolic CHF on Lasix Drip will continue also continue Aldactone 50mg po daily # Chjronic ABd pain : that worsen with Abd wall edema, on IV Lasix for now - monitor with diuresis # LFTS abnormalities. likely due to hepatic congestion with CHF. improved with diuresis . # LE pain R > L , no DVT on US . Likely due to edema . no signs of infection DVT px heparin, SCD
[2016-08-04 09:00] LABS: ALBUMIN 2.7 g/dl (3.4-5.0); ANION GAP 4 (8-16); CALCIUM 9.4 mg/dL (8.5-10.1); CO2 37 mmol/L (21-32); CREATININE 0.9 mg/dL (0.55-1.02); GLUCOSE,RANDOM 96 mg/dL (74-106); SGOT/AST 27 U/L (15-37); SGPT/ALT 22 U/L (12-78)
[2016-08-04 09:02] LABS: ALK PHOS 161 U/L (45-117); BILIRUBIN,TOTAL 2.8 mg/dL (0.2-1.0); TOT PROT 6.4 g/dl (6.4-8.2)
--- NOTE | 2016-08-04 10:15 | PN ---
Physical Exam: SUBJECTIVE: Patient seen and examined at bedside states she feels better today edema decreased OBJECTIVE: Vital Signs Period Temp Pulse Resp BP Sys/Santoro Pulse Ox Last 24 Hr 97 F-98.5 F 74-82 16-20 96-119/61-79 98 GENERAL: The patient is awake and alert EYES: PERRL ENT: moist mucous membranes. NECK: supple. LUNGS: CTAB HEART: Regular rate and rhythm ABDOMEN: Soft, tender to palpation EXTREMITIES: 1+ pitting edema up to umbilicus with erythema of bilateral lower extremities. lower extremities are tender to palpation. pitting edema significantly improved. bilateral lower extremities' circumference is much less today. weight continues to trend down NEUROLOGICAL: Cranial nerves II through XII grossly intact Laboratory Results - last 24 hr 08/03/16 08/04/16 06:20 08:10 Sodium 136 Potassium 4.7 D Chloride 95 L Carbon Dioxide 37 H Anion Gap 4 L BUN 15 D Creatinine 0.9 Creat Clearance w eGFR > 60 Random Glucose 96 Calcium 9.4 Magnesium 1.8 2.0 Total Bilirubin 2.8 H AST 27 ALT 22 Alkaline Phosphatase 161 H D Total Protein 6.4 Albumin 2.7 L Active Medications Generic Name Dose Route Start Last Admin Trade Name Freq PRN Reason Stop Dose Admin Atorvastatin Calcium 20 mg 07/23/16 22:00 08/03/16 22:10 Lipitor - PO 20 mg HS RINA Administration Calamine 1 applic 07/24/16 21:49 07/25/16 09:44 Calamine 8% Topical Lotion - TP 1 applic BID PRN Administration FOR ITCHING Clopidogrel Bisulfate 75 mg 07/29/16 12:15 08/03/16 10:18 Plavix - PO 75 mg DAILY RINA Administration Enoxaparin Sodium 40 mg 07/23/16 10:00 08/03/16 10:17 Lovenox - SQ Not Given DAILY RINA Furosemide 80 mg 08/03/16 14:00 08/04/16 06:11 Lasix Injection - IVPUSH 80 mg TID RINA Administration Guaifenesin 10 ml 07/22/16 17:15 08/04/16 06:00 Robitussin Dm - PO Not Given Q6HPO RINA Levothyroxine Sodium 75 mcg 07/23/16 07:00 08/04/16 06:15 Synthroid - PO 75 mcg DAILY@0700 RINA Administration Lisinopril 10 mg 07/23/16 10:00 08/03/16 10:18 Prinivil PO 10 mg DAILY RINA Administration Metoprolol Succinate 150 mg 07/26/16 10:00 08/03/16 10:18 Toprol Xl - PO 150 mg DAILY RINA Administration Multi-Ingredient Lotion 1 applic 07/25/16 11:07 07/25/16 17:11 Eucerin (Large Jar) - TP 1 applic DAILY PRN Administration DRY SKIN Spironolactone 50 mg 07/30/16 10:00 08/03/16 10:17 Aldactone - PO 50 mg DAILY RINA Administration Tamsulosin HCl 0.4 mg 07/23/16 10:00 08/03/16 10:20 Flomax - PO Not Given DAILY RINA ASSESSMENT/PLAN: 61F systolic CHF, HTN, HLD, hypothyroidism, s/p pacemaker/defibrillator, admitted for abdominal pain. Acute on chronic systolic CHF exacerbation LAsix gtt at 10mg/hr is 240mg/day will continue 80mg q8h IVPB continue aldactone 50mg po daily cardiology consult appreciated one liter fluid restriction weight continues to decrease continue trend daily weights continue to trend I/O pain control ultrasound duplex negative for DVT of bilateral lower extremities still not ready for PO diueretic therapy will transition to PO lasix tomorrow and likely discharge Transaminitis/Abdominal pain-elevated LFTs significantly improved. as she is diuresed the LFTs are improving which likely means she has hepatic congestion from CHF likely secondary to hepatic congestion from CHF. states she saw dr. lugo at [facility] who is a reel repairer and he did lab work and told her she was fine. LFTs significantly improved T. Bili trending down today AST/ALT WNL Alk Phos stable will continue to trend CAD/HLD - atorvastatin 20 mg po qhs continue plavix 75mg since allergic to aspirin HTN Well controlled at this time Continue metoprolol and lisinopril Hypothyroidism continue 75mcg synthroid qam DM -not on meds at home HbA1C 6.6 outpt follow up FEN: fluid restriction hypokalemis resolved sodium restricted diet PPx: lovenox no GI ppx needed patient is ambulating Visit type - Emergency Visit Emergency Visit: Yes ED Registration Date: 07/22/16 Care time: The patient presented to the Emergency Department on the above date and was hospitalized for further evaluation of their emergent condition. - New Patient This patient is new to me today: No - Critical Care Critical Care patient: No - Discharge Referral Referred to [facility] Med P.C.: No
[2016-08-04] MEDS: ENOXAPARIN NA (PORCINE) 40 MG/0.4 ML DISP.SYRIN SQ SCH (11:07)
[2016-08-04] MEDS: TAMSULOSIN HCL 0.4 MG CAP.ER.24H (FP) PO SCH (11:07)
[2016-08-04] MEDS: METOPROLOL SUCCINATE 50 MG TAB.SR.24H (FP) PO SCH (11:12)
[2016-08-04] MEDS: CLOPIDOGREL BISULFATE 75 MG TABLET (FP) PO SCH ×2 (11:13→12:43)
[2016-08-04] MEDS: LISINOPRIL 10 MG TABLET (FP) PO SCH (11:13)
[2016-08-04] MEDS: SPIRONOLACTONE 25 MG TABLET (FP) PO SCH (11:13)
[2016-08-04] MEDS: ATORVASTATIN CA 20 MG TABLET (FP) PO SCH (21:46)
[2016-08-05] MEDS: LEVOTHYROXINE NA 75 MCG TABLET (FP) PO SCH (06:09)
[2016-08-05] MEDS: FUROSEMIDE 40 MG/4 ML INJECTABLE VIAL IVPUSH SCH (06:09)
[2016-08-05] MEDS: guaiFENesin/D-METHORPHAN HB 10 ML UNIT-DOSE CUPS PO SCH ×3 (06:10→12:16)
--- NOTE | 2016-08-05 09:10 | PN ---
Progress Note, Physician Chief Complaint: Pt A&Ox3; no chest pain, palpiitations, or dyspnea. OOB in chair; ambulates better. History of Present Illness: he patient is a 61 year old black female, with a significant past medical history of hypertension, hypercholesterolemia, CAD, [place](X2, s/pp defibrillator/ pacemaker and CABG), severe systolic CHF, DM, kidney stones and peripheral neuropathy, and hypothyroidism, who presents to the emergency department complaining of abdominal pain since last night. The patient was recently admitted at [facility] on 07/09/16 for bilateral lower extremity edema and chest pain. Since her discharge on 07/14/16 the patient reports she was feeling better. However, last night she began to experience difficulty breathing and diffuse abdominal pain. The patient reports her abdominal pain is worse below the umbilicus. She reports associated nonproductive cough and chills, but denies fever, headache, or dizziness. The patient reports bilateral lower extremity edema that is part of her baseline, but states that fluid is coming out of her leg. The patient denies any diaphoresis, palpitations, nausea, vomiting, diarrhea, constipation, dysuria, hematuria, frequency, or urgency. Allergies: Aspirin Past Surgical History: PEG tube placement, stent placement x2 ( the latest ?2014 ), CABG(2003), ICD/Pacemaker(11/2014), Cholecystectomy (04/2016) Social History: Current everyday smoker(5 cigarettes per day). Denies alcohol or drug use. PCP: Dr. Ferrer ([phone]) Scientific Recruiter: Dr. Cage Polisher Numeral: Dr. San ([phone]) - Current Medication List Current Medications: Active Medications Atorvastatin Calcium (Lipitor -) 20 mg PO HS [facility] Last Admin: 08/04/16 21:46 Dose: 20 mg Calamine (Calamine 8% Topical Lotion -) 1 applic TP BID PRN PRN Reason: FOR ITCHING Last Admin: 07/25/16 09:44 Dose: 1 applic Clopidogrel Bisulfate (Plavix -) 75 mg PO DAILY [facility] Last Admin: 08/04/16 12:43 Dose: 75 mg Enoxaparin Sodium (Lovenox -) 40 mg SQ DAILY [facility] Last Admin: 08/04/16 11:07 Dose: Not Given Furosemide (Lasix Injection -) 80 mg IVPUSH TID [facility] Last Admin: 08/05/16 06:09 Dose: Not Given Guaifenesin (Robitussin Dm -) 10 ml PO Q6HPO [facility] Last Admin: 08/05/16 06:10 Dose: Not Given Levothyroxine Sodium (Synthroid -) 75 mcg PO DAILY@0700 [facility] Last Admin: 08/05/16 06:09 Dose: 75 mcg Lisinopril (Prinivil) 10 mg PO DAILY [facility] Last Admin: 08/04/16 11:13 Dose: 10 mg Metoprolol Succinate (Toprol Xl -) 150 mg PO DAILY [facility] Last Admin: 08/04/16 11:12 Dose: 150 mg Multi-Ingredient Lotion (Eucerin (Large Jar) -) 1 applic TP DAILY PRN PRN Reason: DRY SKIN Last Admin: 07/25/16 17:11 Dose: 1 applic Spironolactone (Aldactone -) 50 mg PO DAILY [facility] Last Admin: 08/04/16 11:13 Dose: 50 mg Tamsulosin HCl (Flomax -) 0.4 mg PO DAILY [facility] Last Admin: 08/04/16 11:07 Dose: Not Given - Objective Vital Signs: Vital Signs Temperature 98.4 F 08/05/16 06:42 Pulse Rate 74 08/05/16 06:42 Respiratory Rate 20 08/05/16 06:42 Blood Pressure 98/64 08/05/16 06:42 O2 Sat by Pulse Oximetry (%) 98 08/04/16 21:00 Constitutional: Yes: No Distress, Anxious Eyes: Yes: WNL HENT: Yes: WNL Neck: Yes: WNL Cardiovascular: Yes: Pulse Irregular, S2 (split) Respiratory: Yes: Rales (few scattered rales). No: Wheezes Gastrointestinal: Yes: Soft. No: Tenderness ...Rectal Exam: Yes: Deferred Genitourinary: No: Anuria Breast(s): Yes: WNL Musculoskeletal: Yes: Muscle Weakness Extremities: Yes: Cool Edema: Yes Edema: LLE: 1+, RLE: 1+ Peripheral Pulses WNL: No Peripheral Pulses: Left Doralis Pedis: 1+, Right Dorsalis Pedis: 1+ Integumentary: No: Rash Neurological: Yes: Alert, Oriented, Weakness Psychiatric: Yes: Alert, Oriented Labs: CBC, BMP 07/23/16 05:45 08/04/16 08:10 INR, PTT INR 1.85 (0.82-1.09) H 07/22/16 13:10 - ....Imaging Chest X-ray: Pending Problem List - Problems (1) Anasarca Code(s): R60.1 - GENERALIZED EDEMA (2) Cardiac cirrhosis Code(s): K76.1 - CHRONIC PASSIVE CONGESTION OF LIVER (3) Abdominal discomfort Code(s): R10.9 - UNSPECIFIED ABDOMINAL PAIN (4) Acute combined systolic and diastolic ACC/AHA stage C congestive heart failure Assessment/Plan: Despite increase in weight today, the pt appears clinically improved; no JVD; clear lungs; no PND or orthopnea; better ambulation. IV furosemide (pt refused to continue IV drip; now on 80 mg IV q8h; may decrease dose and change to PO). F/u Is and Os, daily weight, electrolytes, BUN/Cr. Keep Mg 2-2.3; K 4-4.5. f.u CXR (PA and Lat) today. Code(s): I50.41 - ACUTE COMBINED SYSTOLIC AND DIASTOLIC (CONGESTIVE) HRT FAIL (5) Dyspepsia Code(s): K30 - FUNCTIONAL DYSPEPSIA (6) Hyperbilirubinemia Assessment/Plan: Normal LFTS now; improving bilirubin with improvement in acute systolic CHF. Code(s): E80.6 - OTHER DISORDERS OF BILIRUBIN METABOLISM (7) Hypertension Code(s): I10 - ESSENTIAL (PRIMARY) HYPERTENSION (8) Hypothyroidism Code(s): E03.9 - HYPOTHYROIDISM, UNSPECIFIED (9) Tobacco use disorder Assessment/Plan: Smoking cessation is critical for pt, but difficult for her to adhere to. Code(s): Z72.0 - TOBACCO USE (10) Risk for coronary artery disease greater than 20% in next 10 years Code(s): Z91.89 - OTH PERSONAL RISK FACTORS, NOT ELSEWHERE CLASSIFIED
[2016-08-05] MEDS: TAMSULOSIN HCL 0.4 MG CAP.ER.24H (FP) PO SCH ×2 (09:43→09:46)
[2016-08-05] MEDS: SPIRONOLACTONE 25 MG TABLET (FP) PO SCH (09:43)
[2016-08-05] MEDS: CLOPIDOGREL BISULFATE 75 MG TABLET (FP) PO SCH (09:43)
[2016-08-05] MEDS: ENOXAPARIN NA (PORCINE) 40 MG/0.4 ML DISP.SYRIN SQ SCH (09:43)
[2016-08-05] MEDS: METOPROLOL SUCCINATE 50 MG TAB.SR.24H (FP) PO SCH (09:45)
[2016-08-05] MEDS: LISINOPRIL 10 MG TABLET (FP) PO SCH (09:45)
[2016-08-05 11:18] VITALS: TEMP 98.2
--- NOTE | 2016-08-05 11:34 | PN ---
Physical Exam: SUBJECTIVE: Patient seen and examined OBJECTIVE: Vital Signs Temperature 98.2 F 08/05/16 10:00 Pulse Rate 76 08/05/16 10:00 Respiratory Rate 18 08/05/16 10:00 Blood Pressure 94/50 08/05/16 10:00 O2 Sat by Pulse Oximetry (%) 98 08/05/16 09:00 GENERAL: The patient is awake, alert, and fully oriented, in no acute distress. HEAD: Normal with no signs of trauma. EYES: PERRL, extraocular movements intact, sclera anicteric, conjunctiva clear. No ptosis. ENT: Ears normal, nares patent, oropharynx clear without exudates, moist mucous membranes. NECK: Trachea midline, full range of motion, supple. LUNGS: Breath sounds equal, clear to auscultation bilaterally, no wheezes, no crackles, no accessory muscle use. HEART: Regular rate and rhythm, S1, S2 without murmur, rub or gallop. ABDOMEN: Soft, nontender, nondistended, normoactive bowel sounds, no guarding, no hepatosplenomegaly, no masses. EXTREMITIES: 2+ pulses, warm, well-perfused, no edema. NEUROLOGICAL: Cranial nerves II through XII grossly intact. Normal speech, gait not observed. PSYCH: Normal mood, normal affect. SKIN: Warm, dry, normal turgor, no rashes or lesions noted Active Medications Generic Name Dose Route Start Last Admin Trade Name Freq PRN Reason Stop Dose Admin Atorvastatin Calcium 20 mg 07/23/16 22:00 08/04/16 21:46 Lipitor - PO 20 mg HS RINA Administration Calamine 1 applic 07/24/16 21:49 07/25/16 09:44 Calamine 8% Topical Lotion - TP 1 applic BID PRN Administration FOR ITCHING Clopidogrel Bisulfate 75 mg 07/29/16 12:15 08/05/16 09:43 Plavix - PO 75 mg DAILY RINA Administration Enoxaparin Sodium 40 mg 07/23/16 10:00 08/05/16 09:43 Lovenox - SQ Not Given DAILY RINA Furosemide 80 mg 08/03/16 14:00 08/05/16 06:09 Lasix Injection - IVPUSH Not Given TID RINA Guaifenesin 10 ml 07/22/16 17:15 08/05/16 06:10 Robitussin Dm - PO Not Given Q6HPO RINA Levothyroxine Sodium 75 mcg 07/23/16 07:00 08/05/16 06:09 Synthroid - PO 75 mcg DAILY@0700 RINA Administration Lisinopril 10 mg 07/23/16 10:00 08/05/16 09:45 Prinivil PO Not Given DAILY RINA Metoprolol Succinate 150 mg 07/26/16 10:00 08/05/16 09:45 Toprol Xl - PO Not Given DAILY RINA Multi-Ingredient Lotion 1 applic 07/25/16 11:07 07/25/16 17:11 Eucerin (Large Jar) - TP 1 applic DAILY PRN Administration DRY SKIN Spironolactone 50 mg 07/30/16 10:00 08/05/16 09:43 Aldactone - PO 50 mg DAILY RINA Administration Tamsulosin HCl 0.4 mg 07/23/16 10:00 08/05/16 09:46 Flomax - PO 0.4 mg DAILY RINA Administration ASSESSMENT/PLAN: Patient is a 61 year old female, with PMHx of hypertension, hypercholesterolemia , CAD, [place](X2, s/pp defibrillator/pacemaker and CABG), CHF, DM II, kidney stones and peripheral neuropathy, and hypothyroidism, admitted for ABd pain . She developed acute CHF # Acute on chronic systolic CHF on Lasix Drip will continue also continue Aldactone 50mg po daily # Chjronic ABd pain : that worsen with Abd wall edema, on IV Lasix for now - monitor with diuresis # LFTS abnormalities. likely due to hepatic congestion with CHF. improved with diuresis . # LE pain R > L , no DVT on US . Likely due to edema . no signs of infection DVT px heparin, SCD
--- NOTE | 2016-08-05 11:35 | DS ---
Physical Exam: SUBJECTIVE: Patient seen and examined OBJECTIVE: Vital Signs Temperature 98.2 F 08/05/16 10:00 Pulse Rate 76 08/05/16 10:00 Respiratory Rate 18 08/05/16 10:00 Blood Pressure 94/50 08/05/16 10:00 O2 Sat by Pulse Oximetry (%) 98 08/05/16 09:00 PHYSICAL EXAM GENERAL: The patient is awake, alert, and fully oriented, in no acute distress. HEAD: Normal with no signs of trauma. EYES: PERRL, extraocular movements intact, sclera anicteric, conjunctiva clear. ENT: Ears normal, nares patent, oropharynx clear without exudates, moist mucous membranes. NECK: Trachea midline, full range of motion, supple. LUNGS: Breath sounds equal, clear to auscultation bilaterally, no wheezes, no crackles, no accessory muscle use. HEART: Regular rate and rhythm, S1, S2 without murmur, rub or gallop. ABDOMEN: Soft, nontender, nondistended, normoactive bowel sounds, no guarding, no hepatosplenomegaly, no masses. EXTREMITIES: 2+ pulses, warm, well-perfused, no edema. NEUROLOGICAL: Cranial nerves II through XII grossly intact. Normal speech, gait not observed. PSYCH: Normal mood, normal affect. SKIN: Warm, dry, normal turgor, no rashes or lesions noted. LABS CBCD WBC 8.1 K/mm3 (4.0-10.0) 07/23/16 05:45 RBC 4.56 M/mm3 (3.60-5.2) 07/23/16 05:45 Hgb 11.9 GM/dL (10.7-15.3) 07/23/16 05:45 Hct 37.7 % (32.4-45.2) 07/23/16 05:45 MCV 82.6 fl (80-96) 07/23/16 05:45 MCHC 31.6 g/dl (32.0-36.0) L 07/23/16 05:45 RDW 21.1 % (11.6-15.6) H 07/23/16 05:45 Plt Count 197 K/MM3 (134-434) 07/23/16 05:45 MPV 8.3 fl (7.5-11.1) 07/23/16 05:45 CMP Sodium 136 mmol/L (136-145) 08/04/16 08:10 Potassium 4.7 mmol/L (3.5-5.1) D 08/04/16 08:10 Chloride 95 mmol/L (98-107) L 08/04/16 08:10 Carbon Dioxide 37 mmol/L (21-32) H 08/04/16 08:10 Anion Gap 4 (8-16) L 08/04/16 08:10 BUN 15 mg/dL (7-18) D 08/04/16 08:10 Creatinine 0.9 mg/dL (0.55-1.02) 08/04/16 08:10 Creat Clearance w eGFR > 60 (>60) 08/04/16 08:10 Random Glucose 96 mg/dL (74-106) 08/04/16 08:10 Calcium 9.4 mg/dL (8.5-10.1) 08/04/16 08:10 Total Bilirubin 2.8 mg/dL (0.2-1.0) H 08/04/16 08:10 AST 27 U/L (15-37) 08/04/16 08:10 ALT 22 U/L (12-78) 08/04/16 08:10 Alkaline Phosphatase 161 U/L (45-117) H D 08/04/16 08:10 Total Protein 6.4 g/dl (6.4-8.2) 08/04/16 08:10 Albumin 2.7 g/dl (3.4-5.0) L 08/04/16 08:10 CARDIAC ENZYMES Creatine Kinase 247 IU/L (26-192) H D 07/22/16 14:55 Troponin I 0.18 ng/ml (0.00-0.05) H 07/22/16 14:55 Current Medications Generic Name Dose Route Start Last Admin Trade Name Freq PRN Reason Stop Dose Admin Atorvastatin Calcium 20 mg 07/23/16 22:00 08/04/16 21:46 Lipitor - PO 20 mg HS RINA Administration Calamine 1 applic 07/24/16 21:49 07/25/16 09:44 Calamine 8% Topical Lotion - TP 1 applic BID PRN Administration FOR ITCHING Clopidogrel Bisulfate 75 mg 07/29/16 12:15 08/05/16 09:43 Plavix - PO 75 mg DAILY RINA Administration Enoxaparin Sodium 40 mg 07/23/16 10:00 08/05/16 09:43 Lovenox - SQ Not Given DAILY [facility] Furosemide 80 mg 08/03/16 14:00 08/05/16 06:09 Lasix Injection - IVPUSH Not Given TID [facility] Guaifenesin 10 ml 07/22/16 17:15 08/05/16 06:10 Robitussin Dm - PO Not Given Q6HPO [facility] Levothyroxine Sodium 75 mcg 07/23/16 07:00 08/05/16 06:09 Synthroid - PO 75 mcg DAILY@0700 [facility] Administration Lisinopril 10 mg 07/23/16 10:00 08/05/16 09:45 Prinivil PO Not Given DAILY [facility] Metoprolol Succinate 150 mg 07/26/16 10:00 08/05/16 09:45 Toprol Xl - PO Not Given DAILY [facility] Multi-Ingredient Lotion 1 applic 07/25/16 11:07 07/25/16 17:11 Eucerin (Large Jar) - TP 1 applic DAILY PRN Administration DRY SKIN Spironolactone 50 mg 07/30/16 10:00 08/05/16 09:43 Aldactone - PO 50 mg DAILY [facility] Administration Tamsulosin HCl 0.4 mg 07/23/16 10:00 08/05/16 09:46 Flomax - PO 0.4 mg DAILY RINA Administration Home Medications Medication Instructions Recorded Atorvastatin Ca [Lipitor] 20 mg PO DAILY #30 tab 08/04/16 Calamine 8% Topical Lotion - 1 applic TP BID PRN #0 bottle 08/04/16 Clopidogrel Bisulfate [Plavix -] 75 mg PO DAILY #30 tablet 08/04/16 Furosemide [Lasix -] 80 mg PO BID #120 tablet 08/04/16 Levothyroxine [Synthroid -] 75 mcg PO DAILY #30 tab 08/04/16 Lisinopril 10 mg PO DAILY #30 tablet 08/04/16 Metoprolol Succinate [Toprol XL -] 150 mg PO DAILY #90 tablet 08/04/16 Mineral Oil/Petrolat,Wht/Water 1 applic TP DAILY PRN #0 jar 08/04/16 [Eucerin (Large Jar) -] Potassium Chloride 20 meq PO DAILY #30 tab 08/04/16 Spironolactone 50 mg PO DAILY #30 tablet 08/04/16 Tamsulosin HCl [Flomax -] 0.4 mg PO DAILY #30 tab 08/04/16 HOSPITAL COURSE: Date of Admission:07/22/16 Date of Discharge: 08/05/16 Patient is a 61 year old female, with PMHx of hypertension, hypercholesterolemia , CAD, MA(X2, s/pp defibrillator/pacemaker and CABG), CHF, DM II, kidney stones and peripheral neuropathy, and hypothyroidism, admitted for ABd pain . She developed acute CHF # Acute on chronic systolic CHF s/p Lasix Drip , will discharge her on po Lasix , Aldactone 50mg po daily . Patient will follow with Dr. Cardenas # Chronic ABd pain resolved post IV Lasix. will discharge with po Lasix #s/p LFTS elevation due to hepatic congestion with CHF. improved post diuresis . # LE pain R > L , no DVT on US . due to edema . no signs of infection Minutes to complete discharge: 35 Discharge Summary Reason For Visit: DIFFUSE ABD PAIN, ACUTE ON CHRONIC CHF,SOB Current Active Problems Abdominal discomfort (Acute) Acute combined systolic and diastolic ACC/AHA stage C congestive heart failure ( Acute) Acute exacerbation of CHF (congestive heart failure) (Acute) Anasarca (Acute) Cardiac cirrhosis (Acute) Edema (Acute) Lower extremity edema (Acute) Orthopnea (Acute) Pitting edema (Acute) Abdominal pain (Chronic) Abdominal pain, diffuse (Chronic) CHF (congestive heart failure), NYHA class III (Chronic) Chest pain (Chronic) Chronic systolic congestive heart failure (Chronic) Dyspepsia (Chronic) Hyperbilirubinemia (Chronic) Hyperlipidemia (Chronic) Hypertension (Chronic) Hypothyroidism (Chronic) Peripheral neuropathy (Chronic) Restless leg syndrome (Chronic) Shortness of breath (Chronic) Sphincter of Oddi dysfunction (Chronic) Status post THR (total hip replacement) (Chronic) Tobacco use disorder (Chronic) Transaminitis (Chronic) Condition: Improved - Instructions Diet, Activity, Other Instructions: eat a low sodium low cholesterol diet please take all your medications as prescribed this is very important follow up with your primary care doctor in 1-2 weeks if you would like to see me Dr. Cristofer Mckeon in the office i see patients every from - on [address] call [phone] and tell the secretary administrative assistant which insurance you have and tell her you want to see Dr. Cristofer Mckeon if you can not make an appointment for whatever reason then see your Doctor. if you have worsening of your symptoms go to the nearest emergency room your prescriptions were all sent to [place] [facility] Referrals: Abilio Stevens MD [Staff Physician] - 2 Weeks Dick Cage MD [Staff Physician] - 2 Weeks Disposition: HOME - Home Medications Comprehensive Discharge Medication List: Ambulatory Orders Atorvastatin Ca [Lipitor] 20 mg PO DAILY #30 tab 08/04/16 Calamine 8% Topical Lotion - 1 applic TP BID PRN #0 bottle 08/04/16 Clopidogrel Bisulfate [Plavix -] 75 mg PO DAILY #30 tablet 08/04/16 Furosemide [Lasix -] 80 mg PO BID #120 tablet 08/04/16 Levothyroxine [Synthroid -] 75 mcg PO DAILY #30 tab 08/04/16 Lisinopril 10 mg PO DAILY #30 tablet 08/04/16 Metoprolol Succinate [Toprol XL -] 150 mg PO DAILY #90 tablet 08/04/16 Mineral Oil/Petrolat,Wht/Water [Eucerin (Large Jar) -] 1 applic TP DAILY PRN #0 jar 08/04/16 Potassium Chloride 20 meq PO DAILY #30 tab 08/04/16 Spironolactone 50 mg PO DAILY #30 tablet 08/04/16 Tamsulosin HCl [Flomax -] 0.4 mg PO DAILY #30 tab 08/04/16 This patient is new to me today: No Emergency Visit: No Critical Care patient: No - Discharge Referral Referred to [facility] Med P.C.: No
--- NOTE | 2016-08-05 11:46 | PN ---
Progress Note, Physician History of Present Illness: seen and examined today in nad. pt states she is being discharged today. pt feeling better today. - Current Medication List Current Medications: Active Medications Atorvastatin Calcium (Lipitor -) 20 mg PO HS [facility] Last Admin: 08/04/16 21:46 Dose: 20 mg Calamine (Calamine 8% Topical Lotion -) 1 applic TP BID PRN PRN Reason: FOR ITCHING Last Admin: 07/25/16 09:44 Dose: 1 applic Clopidogrel Bisulfate (Plavix -) 75 mg PO DAILY [facility] Last Admin: 08/05/16 09:43 Dose: 75 mg Enoxaparin Sodium (Lovenox -) 40 mg SQ DAILY [facility] Last Admin: 08/05/16 09:43 Dose: Not Given Furosemide (Lasix Injection -) 80 mg IVPUSH TID [facility] Last Admin: 08/05/16 06:09 Dose: Not Given Guaifenesin (Robitussin Dm -) 10 ml PO Q6HPO [facility] Last Admin: 08/05/16 06:10 Dose: Not Given Levothyroxine Sodium (Synthroid -) 75 mcg PO DAILY@0700 [facility] Last Admin: 08/05/16 06:09 Dose: 75 mcg Lisinopril (Prinivil) 10 mg PO DAILY [facility] Last Admin: 08/05/16 09:45 Dose: Not Given Metoprolol Succinate (Toprol Xl -) 150 mg PO DAILY [facility] Last Admin: 08/05/16 09:45 Dose: Not Given Multi-Ingredient Lotion (Eucerin (Large Jar) -) 1 applic TP DAILY PRN PRN Reason: DRY SKIN Last Admin: 07/25/16 17:11 Dose: 1 applic Spironolactone (Aldactone -) 50 mg PO DAILY [facility] Last Admin: 08/05/16 09:43 Dose: 50 mg Tamsulosin HCl (Flomax -) 0.4 mg PO DAILY [facility] Last Admin: 08/05/16 09:46 Dose: 0.4 mg - Objective Vital Signs: Vital Signs Temperature 98.2 F 08/05/16 10:00 Pulse Rate 76 08/05/16 10:00 Respiratory Rate 18 08/05/16 10:00 Blood Pressure 94/50 08/05/16 10:00 O2 Sat by Pulse Oximetry (%) 98 08/05/16 09:00 Constitutional: Yes: No Distress, Calm Eyes: Yes: Conjunctiva Clear, EOM Intact, PERRL HENT: Yes: Atraumatic, Normocephalic Neck: Yes: Supple, Trachea Midline Cardiovascular: Yes: Regular Rate and Rhythm, Murmur, S1, S2. No: Bradycardia, Tachycardia, Pulse Irregular, Bruit, JVD, Gallop, Rub, S3, S4, Varicosities Respiratory: Yes: Regular, CTA Bilaterally. No: Rales, Rhonchi, Wheezes Gastrointestinal: Yes: Normal Bowel Sounds, Soft. No: Distention, Tenderness Musculoskeletal: Yes: WNL Extremities: Yes: WNL Edema: Yes Edema: LLE: Trace, RLE: Trace Peripheral Pulses WNL: Yes Peripheral Pulses: Left Doralis Pedis: 2+, Right Dorsalis Pedis: 2+ Integumentary: Yes: WNL Neurological: Yes: Alert, Oriented Psychiatric: Yes: Alert, Oriented Labs: CBC, BMP 07/23/16 05:45 08/04/16 08:10 INR, PTT INR 1.85 (0.82-1.09) H 07/22/16 13:10 - ....Imaging Chest X-ray: Report Reviewed, Image Reviewed EKG: Report Reviewed, Image Reviewed Other: Report Reviewed, Image Reviewed Assessment/Plan SOB/Edema-acute on chronic combined systolic and diastolic CHF -currently at baseline, mild b/l LE edema, lungs clear -transition to po Lasix, cont aldactone -cont metoprolol, lisinopril, lipitor, plavix -f/up with Dr. Cage in office
[2016-08-05 13:21] VITALS: BP 100/60; PULSE 78
--- NOTE | 2016-08-08 17:52 | DS ---
Physical Exam: SUBJECTIVE: LABS HOSPITAL COURSE: Date of Admission:07/22/16 Date of Discharge: 08/08/16 61F systolic CHF, HTN, HLD, hypothyroidism, s/p pacemaker/defibrillator, admitted for abdominal pain. Abdominal pain secondary to pitting edema. patient found to have acute on chronic CHF exacerbation. was being treated with IV lasix diueresis but patient did not have an adequate response to IV pushes. She was eventually started on a lasix gtt at 10mg/hr and she started dieuresing well. She lost about 25Kg of fluid during this hospitalization. Seen by cardiology who helped us manage her CHF and titrate her cardiac medications. She also was seen by GI for transaminitis but it was thought that this was from liver congestion from her CHF. AST/ALT normalized but Alk phos and T bili remained elevated. states she saw route supervisor Dr. Olvera at [facility] and he told her her liver was "fine". Patient told to follow up with PMD and requested to see Dr. Cristofer Mckeon for primary care and my phone number and address to the office given to the patient. Minutes to complete discharge: 45 Discharge Summary Reason For Visit: DIFFUSE ABD PAIN, ACUTE ON CHRONIC CHF,SOB Current Active Problems Acute combined systolic and diastolic ACC/AHA stage C congestive heart failure ( Acute) Acute exacerbation of CHF (congestive heart failure) (Acute) Edema (Acute) Lower extremity edema (Acute) Orthopnea (Acute) Pitting edema (Acute) Abdominal pain, diffuse (Chronic) Chest pain (Chronic) Chronic systolic congestive heart failure (Chronic) Dyspepsia (Chronic) Hyperbilirubinemia (Chronic) Hyperlipidemia (Chronic) Hypertension (Chronic) Hypothyroidism (Chronic) Peripheral neuropathy (Chronic) Restless leg syndrome (Chronic) Sphincter of Oddi dysfunction (Chronic) Status post THR (total hip replacement) (Chronic) Tobacco use disorder (Chronic) Transaminitis (Chronic) Condition: Improved - Instructions Diet, Activity, Other Instructions: eat a low sodium low cholesterol diet please take all your medications as prescribed this is very important follow up with your primary care doctor in 1-2 weeks if you would like to see me Dr. Cristofer Mckeon in the office i see patients every from - on [address] call [phone] and tell the laboratory secretary which insurance you have and tell her you want to see Dr. Cristofer Mckeon if you can not make an appointment for whatever reason then see your Doctor. if you have worsening of your symptoms go to the nearest emergency room your prescriptions were all sent to [facility] Referrals: Abilio Stevens MD [Staff Physician] - 2 Weeks Dick Cage MD [Staff Physician] - 2 Weeks Disposition: HOME - Home Medications Comprehensive Discharge Medication List: Ambulatory Orders Atorvastatin Ca [Lipitor] 20 mg PO DAILY #30 tab 08/04/16 Calamine 8% Topical Lotion - 1 applic TP BID PRN #0 bottle 08/04/16 Clopidogrel Bisulfate [Plavix -] 75 mg PO DAILY #30 tablet 08/04/16 Furosemide [Lasix -] 80 mg PO BID #120 tablet 08/04/16 Levothyroxine [Synthroid -] 75 mcg PO DAILY #30 tab 08/04/16 Lisinopril 10 mg PO DAILY #30 tablet 08/04/16 Metoprolol Succinate [Toprol XL -] 150 mg PO DAILY #90 tablet 08/04/16 Mineral Oil/Petrolat,Wht/Water [Eucerin (Large Jar) -] 1 applic TP DAILY PRN #0 jar 08/04/16 Potassium Chloride 20 meq PO DAILY #30 tab 08/04/16 Spironolactone 50 mg PO DAILY #30 tablet 08/04/16 Tamsulosin HCl [Flomax -] 0.4 mg PO DAILY #30 tab 08/04/16 This patient is new to me today: No Emergency Visit: No Critical Care patient: No - Discharge Referral Referred to [facility] Med P.C.: No
== END 2016-08-05 13:25 | disposition home or self-care (01) | DRG 441 ==
LOC: JER 11:44 → JERBED 15:35 → J4W 16:59 → J8W 07-30 13:34
PROVIDERS: ADMIT Internal Medicine; ATTEND Internal Medicine
DX: K76.1 Chronic passive congestion of liver (principal); I50.43 Acute on chronic combined systolic (congestive) and diastolic (congestive) heart failure; N17.9 Acute kidney failure, unspecified; R18.8 Other ascites; I47.1 Supraventricular tachycardia; I11.0 Hypertensive heart disease with heart failure; I25.10 Atherosclerotic heart disease of native coronary artery without angina pectoris; I25.2 Old myocardial infarction; Z95.1 Presence of aortocoronary bypass graft; E11.42 Type 2 diabetes mellitus with diabetic polyneuropathy; E03.9 Hypothyroidism, unspecified; E78.00 Pure hypercholesterolemia, unspecified; F17.210 Nicotine dependence, cigarettes, uncomplicated; K76.0 Fatty (change of) liver, not elsewhere classified; F32.9 Major depressive disorder, single episode, unspecified; Z95.810 Presence of automatic (implantable) cardiac defibrillator; K57.30 Diverticulosis of large intestine without perforation or abscess without bleeding; R05 Cough; L29.9 Pruritus, unspecified; I25.5 Ischemic cardiomyopathy; E87.6 Hypokalemia; G25.81 Restless legs syndrome
CPT/HCPCS: 36415; 71010-TC; 71020-TC; 76700-TC; 80048; 80053; 80076; 81003; 82550; 82553; 83036; 83690; 83735; 83880; 84100; 84484; 85025; 85610; 87254; 87804; 93005; 93010; 93970-TC; 99284-25

== ENCOUNTER 2016-08-22 07:42 | Inpatient (IN) | payer OTHER, BC ==
[2016-08-22 08:19] VITALS: BMI 26.4
--- NOTE | 2016-08-22 08:50 | PDOC ---
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, and status post laparoscopic cholecystectomy Patient has had chronic abdominal pain for months, and has been hospitalized for same She states her chronic abdominal pain became worse at 5 AM today, and it radiated up into her chest and neck, and down into her legs down to her toes She states she might of been short of breath but wasn't sure, and denies any palpitations She is still complaining of diffuse abdominal pain, radiating up into her right chest, and down her legs into her toes She denies any increase in her chronic lower extremity edema, and states in fact that her legs are less swollen than usual She states the pain is similar to her chronic pain, although worse She denies any cough or fevers or chills She denies any other abdominal surgery, other than her prior cholecystectomy She denies any other complaints at this time <Izabel Garcia - Last Filed: 08/23/16 08:39> - General Chief Complaint: Pain, Acute Stated Complaint: ABD PAIN Time Seen by Provider: 08/22/16 08:33 Past History <Carlos Larry - Last Filed: 08/22/16 09:23> - Past Medical History Anemia: No Asthma: Yes Cancer: No Cardiac Disorders: Yes (Stents, PM/Defib.) CVA: No COPD: No CHF: Yes Dementia: No Diabetes: No GI Disorders: Yes Disorders: No HTN: Yes Hypercholesterolemia: Yes Liver Disease: Yes Psychiatric Problems: Yes (depression.) Suicide Attempt (Hx): No Seizures: No Thyroid Disease: Yes (Hypo) - Surgical History Abdominal Surgery: Yes (hx of peg tube.) Appendectomy: No Cardiac Surgery: Yes (bypass,stent x2, CABG 2003, ICD/Pacer 12/02) Cholecystectomy: Yes (04/2016) Lung Surgery: Yes (cabg 2003) Neurologic Surgery: No Orthopedic Surgery: Yes (Right THR) - Immunization History Immunization Up to Date: Yes - Psycho/Social/Smoking Cessation Hx Anxiety: No Suicidal Ideation: No Smoking Status: No Smoking History: Current every day smoker Have you smoked in the past 12 months: Yes Number of Cigarettes Smoked Daily: 5 Information on smoking cessation initiated: No 'Breaking Loose' booklet given: 07/22/16 Hx Alcohol Use: No Drug/Substance Use Hx: No Substance Use Type: None Hx Substance Use Treatment: No <Izabel Garcia - Last Filed: 08/23/16 08:39> - Past Medical History Allergies/Adverse Reactions: Allergies Allergy/AdvReac Type Severity Reaction Status Date / Time aspirin Allergy Mild Rash Verified 08/22/16 08:02 Home Medications: Ambulatory Orders Atorvastatin Ca [Lipitor] 20 mg PO DAILY #30 tab 08/04/16 Calamine 8% Topical Lotion - 1 applic TP BID PRN #0 bottle 08/04/16 Clopidogrel Bisulfate [Plavix -] 75 mg PO DAILY #30 tablet 08/04/16 Furosemide [Lasix -] 80 mg PO BID #120 tablet 08/04/16 Levothyroxine [Synthroid -] 75 mcg PO DAILY #30 tab 08/04/16 Lisinopril 10 mg PO DAILY #30 tablet 08/04/16 Metoprolol Succinate [Toprol XL -] 150 mg PO DAILY #90 tablet 08/04/16 Mineral Oil/Petrolat,Wht/Water [Eucerin (Large Jar) -] 1 applic TP DAILY PRN #0 jar 08/04/16 Potassium Chloride 20 meq PO DAILY #30 tab 08/04/16 Spironolactone 50 mg PO DAILY #30 tablet 08/04/16 Tamsulosin HCl [Flomax -] 0.4 mg PO DAILY #30 tab 08/04/16 *Physical Exam - Vital Signs Last Vital Signs Temp Pulse Resp BP Pulse Ox 97.6 F 74 22 114/82 95 08/22/16 08:02 08/22/16 08:02 08/22/16 08:02 08/22/16 08:02 08/22/16 08:02 <Carlos Larry - Last Filed: 08/22/16 09:23> - Vital Signs Last Vital Signs Temp Pulse Resp BP Pulse Ox 97.6 F 74 22 114/82 95 08/22/16 08:02 08/22/16 08:02 08/22/16 08:02 08/22/16 08:02 08/22/16 08:02 - Physical Exam Comments: 08/22/16 08:52 Physical exam Last Vital Signs Temp Pulse Resp BP Pulse Ox 97.6 F 74 22 114/82 95 08/22/16 08:02 08/22/16 08:02 08/22/16 08:02 08/22/16 08:02 08/22/16 08:02 GENERAL: The patient is awake, alert, and complaining of abdominal pain HEAD: Normal with no signs of trauma. EYES: sclera anicteric, conjunctiva are normal. ENT: Moist mucous membranes. NECK: Normal range of motion, supple LUNGS: Breath sounds equal, clear to auscultation bilaterally. No wheezes, and no crackles. HEART: Regular rate and rhythm, normal S1 and S2 without murmur, rub or gallop. ABDOMEN: The abdomen is slightly distended but soft, with diffuse tenderness in all quadrants, without guarding or rebound There is no CVA tenderness. EXTREMITIES: There is chronic venous stasis changes in the lower extremities bilaterally There is 2-3+ pitting pedal edema, which patient states is less then usual NEUROLOGICAL: Patient is alert and answering questions, ambulatory, with a grossly nonfocal neurologic exam SKIN: Warm, Dry, <Izabel Garcia - Last Filed: 08/23/16 08:39> ED Treatment Course - RADIOLOGY Radiograph Interpretation: 08/22/16 09:23 Chest X-Ray Reviewed by: Dr. Pio Gonzales Impression: Large heart, sternal sutures, pacemaker and some prominent central markings with no sign of gross consolidation or pneumothorax. There are degenerative findings. <Carlos Larry - Last Filed: 08/22/16 09:23> - LABORATORY CBC & Chemistry Diagram: 08/23/16 05:35 08/23/16 05:35 <Izabel Garcia - Last Filed: 08/23/16 08:39> Medical Decision Making - Medical Decision Making 08/22/16 11:39 Abdominal pain radiating to chest and a history of patient with chronic abdominal pain which she usually does not radiate to her chest EKG Normal sinus rhythm with occasional PVCs Borderline first degree AV block QRS duration 120-incomplete bundle branch block Poor R wave progression across the anterior precordium Diffuse nonspecific ST-T waves When compared to the EKG of 07/22/16 Today's EKG is similar to the most recent prior EKG 08/22/16 11:42 Laboratory Results - last 24 hr 08/22/16 08/22/16 08/22/16 09:32 09:32 09:40 WBC 7.4 RBC 4.98 Hgb 12.8 Hct 40.5 MCV 81.3 MCHC 31.6 L RDW 21.1 H Plt Count 264 D MPV 9.0 INR Sodium 139 Potassium 3.9 Chloride 102 Carbon Dioxide 23 D Anion Gap 14 BUN 14 Creatinine 0.8 Creat Clearance w eGFR > 60 Random Glucose 89 Calcium 8.8 Magnesium 1.9 Total Bilirubin 3.2 H AST 39 H D ALT 24 Alkaline Phosphatase 178 H Creatine Kinase 215 H CK-MB (CK-2) 9.188 H Troponin I 0.13 H B-Natriuretic Peptide Total Protein 7.5 Albumin 3.0 L Lipase 45 L Urine Color [place] Urine Appearance Clear Urine pH 5.0 Ur Specific [place] 1.023 Urine Protein 2+ H Urine Glucose (UA) Negative Urine Ketones Negative Urine Blood Negative Urine Nitrite Negative Urine Bilirubin 2.0 Urine Urobilinogen 4.0 e.u/dl H Ur Leukocyte Esterase Negative Urine RBC 2 Urine WBC 1 Ur Epithelial Cells Rare Hyaline Casts 30 Urine Mucus Few 08/22/16 08/22/16 09:40 09:44 WBC RBC Hgb Hct MCV MCHC RDW Plt Count MPV INR 1.83 H Sodium Potassium Chloride Carbon Dioxide Anion Gap BUN Creatinine Creat Clearance w eGFR Random Glucose Calcium Magnesium Total Bilirubin AST ALT Alkaline Phosphatase Creatine Kinase CK-MB (CK-2) Troponin I B-Natriuretic Peptide 2848.86 H Total Protein Albumin Lipase Urine Color Urine Appearance Urine pH Ur Specific [place] Urine Protein Urine Glucose (UA) Urine Ketones Urine Blood Urine Nitrite Urine Bilirubin Urine Urobilinogen Ur Leukocyte Esterase Urine RBC Urine WBC Ur Epithelial Cells Hyaline Casts Urine Mucus Troponin elevated Chest x-ray unchanged from prior chest x-ray Dr. Cage at bedside First troponin 0.13 CT scan of the abdomen and pelvis Mild ascites, hepatomegaly with possible cirrhosis, anasarca Right renal cyst Fibroid uterus Exacerbation of chronic abdominal pain, although this time it radiated to her chest which he usually does not First troponin 0.13 EKG unchanged from prior EKG Will need admission and observation, serial enzymes, Dr. Cage at bedside Case discussed with hospitalist 08/22/16 12:14 case d/w hospitalist - will admit <Izabel Garcia - Last Filed: 08/23/16 08:39> *DC/Admit/Observation/Transfer <Carlos Larry - Last Filed: 08/22/16 09:23> - Discharge Dispostion Admit: Yes <Izabel Garcia - Last Filed: 08/23/16 08:39> Diagnosis at time of Disposition: Chest pain, Abdominal pain, diffuse, Elevated troponin
[2016-08-22] MEDS ORDERED: HYDROmorphone HCL CARPU-JECT 1 MG/1 ML DISP.SYRIN IVPUSH ONE (08:52)
[2016-08-22] MEDS ORDERED: SODIUM CHLORIDE 1,000 ML IV SCH (09:00)
[2016-08-22] MEDS ORDERED: HYDROmorphone HCL CARPU-JECT 1 MG/1 ML DISP.SYRIN ONE (09:38)
[2016-08-22 09:56] LABS: URINE APPEARANCE CLEAR; URINE BLOOD NEGATIVE (NEGATIVE); URINE COLOR AMBER; URINE GLUCOSE (UA) NEGATIVE (NEGATIVE); URINE KETONE NEGATIVE (NEGATIVE); URINE LEUK ESTERASE NEGATIVE (NEGATIVE); URINE NITRITE NEGATIVE (NEGATIVE); URINE UROBILINOGEN 4.0 E.U/dl E.U./dl (0.2-1.0)
[2016-08-22 09:57] LABS: URINE PROTEIN 2+ (NEGATIVE)
[2016-08-22 10:01] LABS: MCH 25.7 pg (25.7-33.7); MCHC 31.6 g/dl (32.0-36.0); MEAN CELL VOLUME 81.3 fl (80-96); PLATELET COUNT 264 K/MM3 (134-434); RDW 21.1 % (11.6-15.6); WHITE BLOOD COUNT 7.4 K/mm3 (4.0-10.0)
[2016-08-22 10:14] LABS: INR 1.83 (0.82-1.09); PROTHROMBIN TIME (PATIENT) 20.4 SEC (9.98-11.88)
[2016-08-22 10:29] LABS: ANION GAP 14 (8-16); BILIRUBIN,TOTAL 3.2 mg/dL (0.2-1.0); CALCIUM 8.8 mg/dL (8.5-10.1); CO2 23 mmol/L (21-32); CREATININE 0.8 mg/dL (0.55-1.02); GLUCOSE,RANDOM 89 mg/dL (74-106); SGPT/ALT 24 U/L (12-78); TOT PROT 7.5 g/dl (6.4-8.2)
[2016-08-22 10:32] LABS: ALK PHOS 178 U/L (45-117); TROPONIN I 0.13 ng/ml (0.00-0.05)
[2016-08-22 10:50] LABS: MAGNESIUM 1.9 mg/dL (1.8-2.4); SGOT/AST 39 U/L (15-37)
[2016-08-22 11:17] LABS: URINE HYALINE CAST 30 /lpf; URINE MUCUS FEW; URINE RBC 2 /hpf (0-3); URINE WBC 1 /hpf (3-5)
[2016-08-22 11:40] LABS: POLYCHROMASIA 1+
[2016-08-22 11:41] LABS: ANISOCYTOSIS 1+; FRAGMENTED CELL 1+; TEAR DROP CELLS RARE
[2016-08-22 11:42] LABS: ACANTHOCYTES 1+; OVALOCYTES 1+; TARGET CELLS RARE
[2016-08-22] MEDS ORDERED: CALAMINE 8% TOPICAL LOTION 177 ML BOTTLE TP PRN (12:02)
[2016-08-22] MEDS ORDERED: MINERAL OIL/PETROLAT/WATER TOPICAL CREAM 113 GM JAR TP PRN (12:02)
--- NOTE | 2016-08-22 12:15 | PN ---
Teaching Attending Note Name of Resident: Gia Daley ATTENDING PHYSICIAN STATEMENT I saw and evaluated the patient. I reviewed the resident's note and discussed the case with the resident. I agree with the resident's findings and plan as documented. SUBJECTIVE: The patient is a 61 year old female with extensive past medical history including chronic abdominal pain who presented to the emergency department today complaining of an increase in her abdominal pain, with radiation to the chest. She is reluctant to provide a detailed history but does tell me that she is currently chest pain free. OBJECTIVE: Vitals noted She is well appearing BRITTNY best heard LUSB Abdomen minimally tender diffusely on deep palpation LE edema bilaterally Labs noted including: Mildly elevated troponin that does not meet our laboratory criteria for NSTEMI Elevated BNP EKG without any acute ischemic changes ASSESSMENT AND PLAN: -Chronic abdominal pain There is no evidence of acute intra-abdominal pathology Will add CRP and Lactic acid to increase negative predictive value of evaluation In the past, her pain has been presumed due to ascites Will follow CT abd/pelvis which was done but report is pending She will likely require aggressive diuresis See below -Chest pain I suspect this is radiation of her chronic abdominal pain rather than cardiac chest pain Cardiology was consulted in the ED Will BARBARA Her abdominal pain is likely due to ascites She will likely require aggressiev diuresis Will await cardiology recommendations as they know the patient well Detailed plan as per resident
--- NOTE | 2016-08-22 12:23 | CON.CARD ---
Consult Consult Specialty:: cardiology Reason for Consultation:: chest pain; hx severe systolic CHF - History of Present Illness Chief Complaint: Pt alet; tired; c/o abdominal discomfort History of Present Illness: 61-year-old black female with a history of CAD (AK and CABG in 2003, stents 2, and defibrillator, CHF: severe systolic LV dysfunction, DVT, hypertension, hyperlipidemia, AK in 2003. 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, and status post laparoscopic cholecystectomy Patient has had chronic abdominal pain for months, and has been hospitalized for same She states her chronic abdominal pain became worse at 5 AM today, and it radiated up into her chest and neck, and down into her legs down to her toes She states she might of been short of breath but wasn't sure, and denies any palpitations She is still complaining of diffuse abdominal pain, radiating up into her right chest, and down her legs into her toes She denies any increase in her chronic lower extremity edema, and states in fact that her legs are less swollen than usual She states the pain is similar to her chronic pain, although worse She denies any cough or fevers or chills She denies any other abdominal surgery, other than her prior cholecystectomy - History Source History Provided By: Patient, Medical Record Limitations to Obtaining History: No Limitations - Past Medical History MANAGER LINUX: Yes: Peripheral Neuropathy Cardio/Vascular: Yes: CAD (CABG 2003, stents x2, now with defibrillator), CHF, Deep Vein Thrombosis, HTN, Hyperlipdemia, AK (AK in 2003), Mitral Insufficiency , Murmur, Pulmonary Hypertension, Other (profound biventricular failure, AICD device, CABG 2003, subsequent stents) Pulmonary: Yes: COPD Gastrointestinal: Yes: Diverticulosis, Other (Chronic abdominal pain and food intolerances. Had PEG placed 11/03 after suffering vocal cord damage ( EMS intubation). PEG was subsequently removed. ) Hepatobiliary: Yes: Cirrhosis (cardiac cirrhosis), Cholecystitis (s/p lap choly 05/05) Renal/: Yes: Renal Calculi Psych: Yes: Depression Musculoskeletal: Yes: Chronic low back pain, Osteoarthritis Endocrine: Yes: Hypothyroidism - Past Surgical History Past Surgical History: Yes: AICD, CABG, Cholecystectomy, Colonoscopy, Joint Replacement (right THR), Stent (X2) - Alcohol/Substance Use Hx Alcohol Use: No History of Substance Use: reports: None - Smoking History Smoking history: Current every day smoker Have you smoked in the past 12 months: Yes Aproximately how many cigarettes per day: 5 - Social History Usual Living Arrangement: With Child ADL: Independent 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 History of Recent Travel: No Home Medications - Allergies Allergies/Adverse Reactions: Allergies Allergy/AdvReac Type Severity Reaction Status Date / Time aspirin Allergy Mild Rash Verified 08/22/16 08:02 - Home Medications Home Medications: Ambulatory Orders Atorvastatin Ca [Lipitor] 20 mg PO DAILY #30 tab 08/04/16 Calamine 8% Topical Lotion - 1 applic TP BID PRN #0 bottle 08/04/16 Clopidogrel Bisulfate [Plavix -] 75 mg PO DAILY #30 tablet 08/04/16 Furosemide [Lasix -] 80 mg PO BID #120 tablet 08/04/16 Levothyroxine [Synthroid -] 75 mcg PO DAILY #30 tab 08/04/16 Lisinopril 10 mg PO DAILY #30 tablet 08/04/16 Metoprolol Succinate [Toprol XL -] 150 mg PO DAILY #90 tablet 08/04/16 Mineral Oil/Petrolat,Wht/Water [Eucerin (Large Jar) -] 1 applic TP DAILY PRN #0 jar 08/04/16 Potassium Chloride 20 meq PO DAILY #30 tab 08/04/16 Spironolactone 50 mg PO DAILY #30 tablet 08/04/16 Tamsulosin HCl [Flomax -] 0.4 mg PO DAILY #30 tab 08/04/16 Family Disease History - Family Disease History Family Disease History: Diabetes: Sister (s/p CABG in her 50s), Heart Disease: Father (had unknown cancer), Mother (lived to ), Sister, [place]: Father Review of Systems - Review of Systems Constitutional: reports: Weakness Eyes: reports: No Symptoms HENT: reports: No Symptoms Neck: reports: No Symptoms Cardiovascular: reports: Chest Pain Gastrointestinal: reports: Abdominal Pain, Nausea Genitourinary: reports: No Symptoms Breasts: reports: No Symptoms Reported Musculoskeletal: reports: Muscle Weakness Neurological: reports: Weakness - Risk Factors Known Risk Factors: Yes: Age, Family History, Hypercholesterolemia, Hypertension , Prior AK /Emb Stroke, Race, Smoking Vital Signs: Vital Signs Temperature 97.6 F 08/22/16 08:02 Pulse Rate 74 08/22/16 08:02 Respiratory Rate 22 08/22/16 08:02 Blood Pressure 114/82 08/22/16 08:02 O2 Sat by Pulse Oximetry (%) 95 08/22/16 08:02 Constitutional: Yes: Anxious, Mild Distress Eyes: Yes: WNL HENT: Yes: WNL Neck: Yes: WNL Respiratory: Yes: WNL Gastrointestinal: Yes: Soft, Distention (mild), Tenderness Renal/: No: Anuria Cardiovascular: Yes: Pulse Irregular JVD: No Carotid Bruit: No PMI: Displaced Heart Sounds: Yes: S1, Split S2 Murmur: Yes: Systolic Murmur, Grade 2 Musculoskeletal: Yes: Joint Stiffness (right knee), Muscle Weakness Edema: Yes Edema: LLE: 1+, RLE: 1+ Peripheral Pulses WNL: No Peripheral Pulses: 1+ Left Doralis Pedis, 1+ Right Dorsalis Pedis Integumentary: Yes: WNL Neurological: Yes: Alert, Oriented, Weakness Psychiatric: Yes: Alert, Oriented - Other Data Labs, Other Data: CBC, BMP 08/22/16 09:32 08/22/16 09:40 INR, PTT INR 1.83 (0.82-1.09) H 08/22/16 09:44 Troponin, BNP 08/22/16 08/22/16 09:40 09:40 Troponin I 0.13 H B-Natriuretic Peptide 2848.86 H Troponin, BNP 08/22/16 08/22/16 09:40 09:40 Troponin I 0.13 H B-Natriuretic Peptide 2848.86 H Abnormal Lab Results 08/22/16 08/22/16 08/22/16 09:32 09:32 09:40 MCHC 31.6 L RDW 21.1 H INR Total Bilirubin 3.2 H AST 39 H D Alkaline Phosphatase 178 H Creatine Kinase 215 H CK-MB (CK-2) 9.188 H Troponin I 0.13 H B-Natriuretic Peptide Albumin 3.0 L Lipase 45 L Urine Protein 2+ H Urine Urobilinogen 4.0 e.u/dl H 08/22/16 08/22/16 09:40 09:44 MCHC RDW INR 1.83 H Total Bilirubin AST Alkaline Phosphatase Creatine Kinase CK-MB (CK-2) Troponin I B-Natriuretic Peptide 2848.86 H Albumin Lipase Urine Protein Urine Urobilinogen Echo: Report Reviewed Ejection Fraction %: LVEF < 40 % Imaging - Results Chest X-ray: Image Reviewed (mild IS disease) X-ray: Image Reviewed (abdominal XRAY: ascietes) EKG: Image Reviewed (NSR; occasional PVCs) Problem List - Problems (1) Acute combined systolic and diastolic ACC/AHA stage C congestive heart failure Assessment/Plan: Continue metoprolol, aldactone, furosemide. Add ACEI, unless contraindcations exist; if so, would add hydralazine + nitrate. BUN/Cr, electrolytes, Is and Os, daily weight. Code(s): I50.41 - ACUTE COMBINED SYSTOLIC AND DIASTOLIC (CONGESTIVE) HRT FAIL (2) Lower extremity edema Code(s): R60.0 - LOCALIZED EDEMA Qualifiers: Laterality: bilateral Qualified Code(s): R60.0 - Localized edema (3) Orthopnea Code(s): R06.01 - ORTHOPNEA (4) Abdominal pain, diffuse Assessment/Plan: +ascites; hx cholecystectomy. F/u with GI. Code(s): R10.84 - GENERALIZED ABDOMINAL PAIN (5) Chest pain Code(s): R07.9 - CHEST PAIN, UNSPECIFIED (6) ICD (implantable cardioverter-defibrillator) in place Code(s): Z95.810 - PRESENCE OF AUTOMATIC (IMPLANTABLE) CARDIAC DEFIBRILLATOR (7) Migraine headache Code(s): G43.909 - MIGRAINE, UNSP, NOT INTRACTABLE, WITHOUT STATUS MIGRAINOSUS (8) Risk for coronary artery disease greater than 20% in next 10 years Code(s): Z91.89 - OTH PERSONAL RISK FACTORS, NOT ELSEWHERE CLASSIFIED (9) Elevated troponin Assessment/Plan: 0.13 has been her baseline since about 09/2012. f/u serially; f/u EKG; telemetry. Code(s): R74.8 - ABNORMAL LEVELS OF OTHER SERUM ENZYMES (10) Cigarette nicotine dependence Assessment/Plan: pt says she has stopped for months Code(s): F17.210 - NICOTINE DEPENDENCE, CIGARETTES, UNCOMPLICATED
[2016-08-22] MEDS ORDERED: OLANZapine 10 MG TABLET ONE (13:11)
[2016-08-22] MEDS: OLANZapine 5 MG TABLET PO SCH ×2 (13:17→22:01)
[2016-08-22] MEDS ORDERED: FUROSEMIDE 40 MG/4 ML INJECTABLE VIAL ONE (14:17)
[2016-08-22] MEDS: FUROSEMIDE 40 MG/4 ML INJECTABLE VIAL IVPUSH SCH ×2 (14:22→20:33)
--- NOTE | 2016-08-22 15:37 | HP ---
CHIEF COMPLAINT: "my stomach hurts" PCP: dr. Ferrer Pipe Stem Aligner: Dr. Cage HISTORY OF PRESENT ILLNESS: This is a 61 yo F with a PMH of chronic abd pain/hyperbilirubinemia thought to be due to liver cirrhosis/biliary tree strictures s/p lap naomi for acalcalous cholecystitis 05/05, severe dilated ischemic cardiomyopathy s/p ICD, CAD s/o MS 2003, CABG in 2003 s/p stents 2, CHF, DVT, HTN, HLD, Mitral insufficiency, Pulmonary HTN, COPD current smoker and depression, well known to me, who presents due to same abd pain that became worse this AM. It is diffuse but worse in RUQ, radiated up into her chest and neck, and down into her legs down to her toes. She has chronic LE edema that causes pain. She is often noncompliant with home meds. She denies increase in edema or weight gain, denies sob or palpitations. No N/v or diarrhea. No F/c, cough. Patient states she saw liver specialis Dr San who did blood work but did not intervene in any way. ER course was notable for: (1)labs (2)chest ct (3)ekg Recent Travel: no PAST MEDICAL HISTORY: as above PAST SURGICAL HISTORY: as above Social History: lives with granddaughter Smoking: current Alcohol: no Drugs: no Family History: unknown Allergies aspirin Allergy (Mild, Verified 08/22/16 08:02) Rash HOME MEDICATIONS: Home Medications Medication Instructions Recorded Atorvastatin Ca [Lipitor] 20 mg PO DAILY #30 tab 08/04/16 Calamine 8% Topical Lotion - 1 applic TP BID PRN #0 bottle 08/04/16 Clopidogrel Bisulfate [Plavix -] 75 mg PO DAILY #30 tablet 08/04/16 Furosemide [Lasix -] 80 mg PO BID #120 tablet 08/04/16 Levothyroxine [Synthroid -] 75 mcg PO DAILY #30 tab 08/04/16 Lisinopril 10 mg PO DAILY #30 tablet 08/04/16 Metoprolol Succinate [Toprol XL -] 150 mg PO DAILY #90 tablet 08/04/16 Mineral Oil/Petrolat,Wht/Water 1 applic TP DAILY PRN #0 jar 08/04/16 [Eucerin (Large Jar) -] Potassium Chloride 20 meq PO DAILY #30 tab 08/04/16 Spironolactone 50 mg PO DAILY #30 tablet 08/04/16 Tamsulosin HCl [Flomax -] 0.4 mg PO DAILY #30 tab 08/04/16 REVIEW OF SYSTEMS CONSTITUTIONAL: Absent: fever, chills, diaphoresis, generalized weakness HEENT: Absent: rhinorrhea, nasal congestion, throat pain, throat swelling CARDIOVASCULAR: Absent: syncope, palpitations, irregular heart rate, lightheadedness RESPIRATORY: Absent: cough, shortness of breath GASTROINTESTINAL: Absent: abdominal distension, nausea, vomiting, diarrhea GENITOURINARY: Absent: dysuria MUSCULOSKELETAL: Absent: myalgia, arthralgia SKIN: Absent: rash, itching, pallor HEMATOLOGIC/IMMUNOLOGIC: Absent: easy bleeding, easy bruising ENDOCRINE: Absent: unexplained weight gain, unexplained weight loss NEUROLOGIC: Absent: headache, focal weakness or paresthesias PSYCHIATRIC: Absent: suicidal or homicidal ideation, hallucinations. PHYSICAL EXAMINATION Vital Signs - 24 hr 08/22/16 13:18 Temperature 97.9 F Pulse Rate [ 93 H Apical] Respiratory 18 Rate Blood Pressure 133/93 [Right Arm] O2 Sat by Pulse 98 Oximetry (%) GENERAL: Awake, alert, and fully oriented, in no acute distress. HEAD: Normal with no signs of trauma. EYES: Pupils equal, round and reactive to light, extraocular movements intact, sclera anicteric, conjunctiva clear. No lid lag. EARS, NOSE, THROAT: Moist mucous membranes. NECK: supple without JVD LUNGS: bibasilar crackles HEART: Regular rate and rhythm, normal S1 and S2 ABDOMEN: Soft, mildly tender diffusely, more so in ruq, not distended, normoactive bowel sounds, no guarding, no rebound, no masses. MUSCULOSKELETAL: No CVA tenderness. UPPER EXTREMITIES: 2+ pulses, warm, well-perfused. No peripheral edema. LOWER EXTREMITIES: 2+ pulses, warm, well-perfused. No calf tenderness. 2+ peripheral edema. NEUROLOGICAL: Cranial nerves II-XII grossly intact. Normal speech. PSYCHIATRIC: Cooperative. no eye contact. flat mood and affect. SKIN: Warm, dry ASSESSMENT/PLAN: This is a 61 yo F with a PMH of chronic abd pain/hyperbilirubinemia thought to be due to liver cirrhosis/biliary tree strictures s/p lap naomi for acalcalous cholecystitis 05/05, severe dilated ischemic cardiomyopathy s/p ICD, CAD s/o MS 2003, CABG in 2003 s/p stents 2, CHF, DVT, HTN, HLD, Mitral insufficiency, Pulmonary HTN, COPD current smoker and depression, well known to me, who presents due to same abd pain that became worse this AM. EKG: no ACS CXR: congestive changes, no diference from last study CT abd: mild ascites, cirrhotic liver, anasarca Chronic abdominal pain -history if biliarytree/hepatic cirrhosis/presumed autoimmune hepatitis -t bili elevated but at baseline -CT abd no acute process -pain likley due to biliary stricture, cardiac congestion, ischemic changes in setting of low EF -dilaudid 0.5 q 4h -outpatient f/u with liver specialist -CRP, lactic acid Atypical chest pain -EKG no evidence of ACS -likely radiation from abd pain -BNP elevated from last admission -trop elevated but at baseline -requiers diuresis -LAsix 80 tid IV -spironolactne 50 d -toprol xl 150 d -plavix 75 d -cardiology consult appreciated HLD -lipitor 20 HS Depression -olanzapine 5 bid Hypothyroid -synthroid 75 d FEN no ivf lytes stable na restricted diet ppx: plavix 40 d Dispo: admit tele Problem List - Problem (1) Edema Code(s): R60.9 - EDEMA, UNSPECIFIED Qualifiers: Edema type: generalized Qualified Code(s): R60.1 - Generalized edema (2) Lower extremity edema Code(s): R60.0 - LOCALIZED EDEMA Qualifiers: Laterality: bilateral Qualified Code(s): R60.0 - Localized edema (3) Pitting edema Code(s): R60.9 - EDEMA, UNSPECIFIED (4) Abdominal pain, diffuse Code(s): R10.84 - GENERALIZED ABDOMINAL PAIN (5) Chest pain Code(s): R07.9 - CHEST PAIN, UNSPECIFIED (6) Chronic systolic congestive heart failure Code(s): I50.22 - CHRONIC SYSTOLIC (CONGESTIVE) HEART FAILURE (7) Hyperbilirubinemia Code(s): E80.6 - OTHER DISORDERS OF BILIRUBIN METABOLISM (8) Hyperlipidemia Code(s): E78.5 - HYPERLIPIDEMIA, UNSPECIFIED (9) Hypertension Code(s): I10 - ESSENTIAL (PRIMARY) HYPERTENSION (10) Hypothyroidism Code(s): E03.9 - HYPOTHYROIDISM, UNSPECIFIED (11) Peripheral neuropathy Code(s): G62.9 - POLYNEUROPATHY, UNSPECIFIED (13) Status post THR (total hip replacement) Code(s): Z96.649 - PRESENCE OF UNSPECIFIED ARTIFICIAL HIP JOINT (14) Tobacco use disorder Code(s): Z72.0 - TOBACCO USE (15) Anasarca Code(s): R60.1 - GENERALIZED EDEMA (16) Acute on chronic systolic and diastolic heart failure, NYHA class 3 Code(s): I50.43 - ACUTE ON CHRONIC COMBINED SYSTOLIC AND DIASTOLIC HRT FAIL (17) CHF (congestive heart failure) Code(s): I50.9 - HEART FAILURE, UNSPECIFIED Qualifiers: Congestive heart failure type: unspecified congestive heart failure type Congestive heart failure chronicity: unspecified congestive heart failure chronicity Qualified Code(s): I50.9 - Heart failure, unspecified (18) CHF (congestive heart failure), NYHA class III Code(s): I50.9 - HEART FAILURE, UNSPECIFIED Qualifiers: Congestive heart failure type: unspecified congestive heart failure type Qualified Code(s): I50.9 - Heart failure, unspecified (19) Cirrhosis of liver Code(s): K74.60 - UNSPECIFIED CIRRHOSIS OF LIVER (20) Coronary artery disease Code(s): I25.10 - ATHSCL HEART DISEASE OF [place]' CORONARY ARTERY W/O ANG PCTRS (21) Depression Code(s): F32.9 - MAJOR DEPRESSIVE DISORDER, SINGLE EPISODE, UNSPECIFIED (22) ICD (implantable cardioverter-defibrillator) in place Code(s): Z95.810 - PRESENCE OF AUTOMATIC (IMPLANTABLE) CARDIAC DEFIBRILLATOR (23) Systolic heart failure Code(s): I50.20 - UNSPECIFIED SYSTOLIC (CONGESTIVE) HEART FAILURE (24) Autoimmune hepatitis Code(s): K75.4 - AUTOIMMUNE HEPATITIS Visit type - Emergency Visit Emergency Visit: Yes ED Registration Date: 08/22/16 Care time: The patient presented to the Emergency Department on the above date and was hospitalized for further evaluation of their emergent condition. - New Patient This patient is new to me today: No - Critical Care Critical Care patient: No
[2016-08-22] MEDS ORDERED: HYDROmorphone HCL CARPU-JECT 1 MG/1 ML DISP.SYRIN IVPUSH PRN (15:45)
--- NOTE | 2016-08-22 17:30 | EKG ---
Test Reason : Blood Pressure : / mmHG Vent. Rate : 095 BPM Atrial Rate : 095 BPM P-R Int : 180 ms QRS Dur : 120 ms QT Int : 388 ms P-R-T Axes : 062 092 028 degrees QTc Int : 487 ms SINUS RHYTHM WITH OCCASIONAL PREMATURE VENTRICULAR COMPLEXES CANNOT RULE OUT ANTERIOR INFARCT (CITED ON OR BEFORE 30-JUN-2015) ABNORMAL ECG WHEN COMPARED WITH ECG OF 22-JUL-2016 12:42, PREMATURE VENTRICULAR COMPLEXES ARE NOW PRESENT Confirmed by MICH ARVIZU MD ([id number]) on 08/22/2016 5:30:28 PM Referred By: Confirmed By:MICH ARVIZU MD
[2016-08-23] MEDS: LEVOTHYROXINE NA 75 MCG TABLET (FP) PO SCH (06:37)
[2016-08-23] MEDS: FUROSEMIDE 40 MG/4 ML INJECTABLE VIAL IVPUSH SCH ×4 (06:37→21:24)
[2016-08-23 08:02] LABS: MCH 25.8 pg (25.7-33.7); MCHC 31.7 g/dl (32.0-36.0); MEAN CELL VOLUME 81.5 fl (80-96); MEAN PLT VOLUME 8.6 fl (7.5-11.1); PLATELET COUNT 251 K/MM3 (134-434); RDW 21.1 % (11.6-15.6)
[2016-08-23] MEDS: TAMSULOSIN HCL 0.4 MG CAP.ER.24H (FP) PO SCH (08:10)
[2016-08-23 08:22] LABS: CREATININE 0.9 mg/dL (0.55-1.02); MAGNESIUM 1.5 mg/dL (1.8-2.4)
[2016-08-23 08:31] LABS: THYROID STIMULATING HORMONE 0.25 uIU/ml (0.358-3.74); TROPONIN I 0.14 ng/ml (0.00-0.05)
[2016-08-23] MEDS: POTASSIUM CHLORIDE TABS 20 MEQ TABLET.ER (FP) PO SCH (09:57)
[2016-08-23] MEDS: SPIRONOLACTONE 25 MG TABLET (FP) PO SCH (09:57)
[2016-08-23] MEDS: CLOPIDOGREL BISULFATE 75 MG TABLET (FP) PO SCH (09:57)
[2016-08-23] MEDS: METOPROLOL SUCCINATE 50 MG TAB.SR.24H (FP) PO SCH (09:57)
[2016-08-23] MEDS: OLANZapine 5 MG TABLET PO SCH ×2 (10:11→22:01)
[2016-08-23] MEDS: ENOXAPARIN NA (PORCINE) 40 MG/0.4 ML DISP.SYRIN SQ SCH (10:11)
--- NOTE | 2016-08-23 11:42 | PN ---
Progress Note, Physician History of Present Illness: 61-year-old black female with a history of CAD ([place] and CABG in 2004, stents 2, and defibrillator, CHF: severe systolic LV dysfunction, DVT, hypertension, hyperlipidemia, PA in 2004. 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, and status post laparoscopic cholecystectomy Patient has had chronic abdominal pain for months, and has been hospitalized for same She states her chronic abdominal pain became worse at 5 AM today, and it radiated up into her chest and neck, and down into her legs down to her toes She states she might of been short of breath but wasn't sure, and denies any palpitations She is still complaining of diffuse abdominal pain, radiating up into her right chest, and down her legs into her toes She denies any increase in her chronic lower extremity edema, and states in fact that her legs are less swollen than usual She states the pain is similar to her chronic pain, although worse She denies any cough or fevers or chills She denies any other abdominal surgery, other than her prior cholecystectomy - Current Medication List Current Medications: Active Medications Atorvastatin Calcium (Lipitor -) 20 mg PO [facility] Calamine (Calamine 8% Topical Lotion -) 1 applic TP BID PRN PRN Reason: FOR ITCHING Clopidogrel Bisulfate (Plavix -) 75 mg PO DAILY [facility] Last Admin: 08/23/16 09:57 Dose: 75 mg Enoxaparin Sodium (Lovenox -) 40 mg SQ DAILY [facility] Last Admin: 08/23/16 10:11 Dose: Not Given Furosemide (Lasix Injection -) 80 mg IVPUSH 0600,1400,2000 [facility] Last Admin: 08/23/16 10:02 Dose: 80 mg Hydromorphone HCl (Dilaudid Injection -) 0.5 mg IVPUSH Q4H PRN PRN Reason: PAIN Sodium Chloride (Normal Saline -) 1,000 mls @ 100 mls/hr IV ASDIR [facility] Last Admin: 08/22/16 09:25 Dose: 100 mls/hr Levothyroxine Sodium (Synthroid -) 75 mcg PO DAILY@0700 [facility] Last Admin: 08/23/16 06:37 Dose: Not Given Metoprolol Succinate (Toprol Xl -) 150 mg PO DAILY [facility] Last Admin: 08/23/16 09:57 Dose: 150 mg Multi-Ingredient Lotion (Eucerin (Small Jar) -) 1 applic TP DAILY PRN PRN Reason: DRY SKIN Olanzapine (Zyprexa -) 5 mg PO BID [facility] Last Admin: 08/23/16 10:11 Dose: Not Given Potassium Chloride (K-Dur -) 20 meq PO DAILY [facility] Last Admin: 08/23/16 09:57 Dose: 20 meq Spironolactone (Aldactone -) 50 mg PO DAILY [facility] Last Admin: 08/23/16 09:57 Dose: 50 mg Tamsulosin HCl (Flomax -) 0.4 mg PO DAILY@0830 [facility] Last Admin: 08/23/16 08:10 Dose: Not Given - Objective Vital Signs: Vital Signs Temperature 98.5 F 08/23/16 05:00 Pulse Rate 90 08/23/16 05:00 Respiratory Rate 20 08/23/16 05:00 Blood Pressure 110/61 08/23/16 05:00 O2 Sat by Pulse Oximetry (%) 96 08/22/16 21:00 Eyes: Yes: WNL, Conjunctiva Clear, EOM Intact HENT: Yes: WNL, Atraumatic, Normocephalic Neck: Yes: WNL, Supple, Trachea Midline Cardiovascular: Yes: WNL, Regular Rate and Rhythm Respiratory: Yes: WNL, Regular, CTA Bilaterally Gastrointestinal: Yes: WNL, Normal Bowel Sounds Genitourinary: Yes: WNL Musculoskeletal: Yes: WNL Extremities: Yes: WNL Edema: No Integumentary: Yes: WNL Neurological: Yes: WNL, Alert, Oriented ...Motor Strength: WNL Psychiatric: Yes: WNL Labs: CBC, BMP 08/23/16 05:35 08/23/16 05:35 INR, PTT INR 1.83 (0.82-1.09) H 08/22/16 09:44 Assessment/Plan - Problems (1) Acute combined systolic and diastolic ACC/AHA stage C congestive heart failure Assessment/Plan: Continue metoprolol, aldactone, furosemide. Add ACEI, unless contraindcations exist; if so, would add hydralazine + nitrate. BUN/Cr, electrolytes, Is and Os, daily weight. Code(s): I50.41 - ACUTE COMBINED SYSTOLIC AND DIASTOLIC (CONGESTIVE) HRT FAIL (2) Lower extremity edema Code(s): R60.0 - LOCALIZED EDEMA Qualifiers: Laterality: bilateral Qualified Code(s): R60.0 - Localized edema (3) Orthopnea Code(s): R06.01 - ORTHOPNEA (4) Abdominal pain, diffuse Assessment/Plan: +ascites; hx cholecystectomy. F/u with GI. Code(s): R10.84 - GENERALIZED ABDOMINAL PAIN (5) Chest pain Code(s): R07.9 - CHEST PAIN, UNSPECIFIED (6) ICD (implantable cardioverter-defibrillator) in place Code(s): Z95.810 - PRESENCE OF AUTOMATIC (IMPLANTABLE) CARDIAC DEFIBRILLATOR (7) Migraine headache Code(s): G43.909 - MIGRAINE, UNSP, NOT INTRACTABLE, WITHOUT STATUS MIGRAINOSUS (8) Risk for coronary artery disease greater than 20% in next 10 years Code(s): Z91.89 - OTH PERSONAL RISK FACTORS, NOT ELSEWHERE CLASSIFIED (9) Elevated troponin Assessment/Plan: 0.13 has been her baseline since about 09/2012. f/u serially; f/u EKG; telemetry. Code(s): R74.8 - ABNORMAL LEVELS OF OTHER SERUM ENZYMES (10) Cigarette nicotine dependence Assessment/Plan: pt says she has stopped for months Code(s): F17.210 - NICOTINE DEPENDENCE, CIGARETTES, UNCOMPLICATED
--- NOTE | 2016-08-23 15:57 | PN ---
Physical Exam: SUBJECTIVE: Patient seen and examined Patient resting in bed NAD. No acute events overnight or on telemetry. afebrile and hemodynamiclly stable. flattened affect, irritable mood. states she still has abd pain. Denies chest pain, sob, n/v, diarrhea, constipation or dysuria. refusing some of the medication this AM (antidepressant, lasix) OBJECTIVE: Vital Signs Period Temp Pulse Resp BP Sys/Santoro Pulse Ox Last 24 Hr 97.8 F-98.8 F 88-100 18-22 110-168/61-89 96 GENERAL: Awake, alert, and fully oriented, in no acute distress. HEAD: Normal with no signs of trauma. EYES: Pupils equal, round and reactive to light, extraocular movements intact, sclera anicteric, conjunctiva clear. No lid lag. EARS, NOSE, THROAT: Moist mucous membranes. NECK: supple without JVD LUNGS: bibasilar crackles HEART: Regular rate and rhythm, normal S1 and S2 ABDOMEN: Soft, mildly tender diffusely, more so in ruq, not distended, normoactive bowel sounds, no guarding, no rebound, no masses. MUSCULOSKELETAL: No CVA tenderness. UPPER EXTREMITIES: 2+ pulses, warm, well-perfused. No peripheral edema. LOWER EXTREMITIES: 2+ pulses, warm, well-perfused. No calf tenderness. 2+ peripheral edema. NEUROLOGICAL: Cranial nerves II-XII grossly intact. Normal speech. PSYCHIATRIC: Cooperative. no eye contact. flat mood and affect. SKIN: Warm, dry Laboratory Results - last 24 hr 08/23/16 08/23/16 05:35 05:35 WBC 7.0 RBC 4.85 Hgb 12.5 Hct 39.6 MCV 81.5 MCHC 31.7 L RDW 21.1 H Plt Count 251 MPV 8.6 Sodium 142 Potassium 3.6 Chloride 103 Carbon Dioxide 28 D Anion Gap 11 BUN 15 Creatinine 0.9 Random Glucose 60 L D Calcium 9.0 Phosphorus 3.0 Magnesium 1.5 L D Troponin I 0.14 H TSH 0.25 L D Active Medications Generic Name Dose Route Start Last Admin Trade Name Freq PRN Reason Stop Dose Admin Atorvastatin Calcium 20 mg 08/23/16 22:00 Lipitor - PO HS RINA Calamine 1 applic 08/22/16 12:02 Calamine 8% Topical Lotion - TP BID PRN FOR ITCHING Clopidogrel Bisulfate 75 mg 04/05/17 10:00 08/23/16 09:57 Plavix - PO 75 mg DAILY RINA Administration Enoxaparin Sodium 40 mg 08/23/16 10:00 08/23/16 10:11 Lovenox - SQ Not Given DAILY [facility] Furosemide 80 mg 08/22/16 14:00 08/23/16 10:02 Lasix Injection - IVPUSH 80 mg 0600,1400,2000 [facility] Administration Hydromorphone HCl 0.5 mg 08/22/16 15:45 Dilaudid Injection - IVPUSH Q4H PRN PAIN Levothyroxine Sodium 75 mcg 08/23/16 07:00 08/23/16 06:37 Synthroid - PO Not Given DAILY@0700 [facility] Metoprolol Succinate 150 mg 08/23/16 10:00 08/23/16 09:57 Toprol Xl - PO 150 mg DAILY [facility] Administration Multi-Ingredient Lotion 1 applic 08/22/16 12:02 Eucerin (Small Jar) - TP DAILY PRN DRY SKIN Olanzapine 5 mg 08/22/16 12:30 08/23/16 10:11 Zyprexa - PO Not Given BID [facility] Potassium Chloride 20 meq 08/23/16 10:00 08/23/16 09:57 K-Dur - PO 20 meq DAILY [facility] Administration Spironolactone 50 mg 08/23/16 10:00 08/23/16 09:57 Aldactone - PO 50 mg DAILY [facility] Administration Tamsulosin HCl 0.4 mg 08/23/16 08:30 08/23/16 08:10 Flomax - PO Not Given DAILY@0830 [facility] ASSESSMENT/PLAN: This is a 61 yo F with a PMH of chronic abd pain/hyperbilirubinemia thought to be due to liver cirrhosis/biliary tree strictures s/p lap naomi for acalcalous cholecystitis 05/05, severe dilated ischemic cardiomyopathy s/p ICD, CAD s/o [place] 2003, CABG in 2003 s/p stents 2, CHF, DVT, HTN, HLD, Mitral insufficiency, Pulmonary HTN, COPD current smoker and depression, well known to me, who presents due to same abd pain that became worse this AM. EKG: no ACS CXR: congestive changes, no diference from last study CT abd: mild ascites, cirrhotic liver, anasarca Chronic abdominal pain -history if biliarytree/hepatic cirrhosis/presumed autoimmune hepatitis -thought to be caused by ascites -t bili elevated but at baseline -CT abd no acute process -pain likley due to biliary stricture, cardiac congestion, ischemic changes in setting of low EF -tramadol -outpatient f/u with liver specialist -CRP =1 Atypical chest pain -EKG no evidence of ACS -likely radiation from abd pain -BNP elevated from last admission -trop elevated but at baseline -requiers diuresis -Lasix 80 tid IV -spironolactne 50 d -toprol xl 150 d -plavix 75 d -cardiology consult appreciated HLD -lipitor 20 HS Depression -olanzapine 5 bid Hypothyroid -synthroid 75 d FEN no ivf lytes stable na restricted diet ppx: plavix 40 d Dispo: med vik Problem List - Problems (1) Edema Code(s): R60.9 - EDEMA, UNSPECIFIED Qualifiers: Edema type: generalized Qualified Code(s): R60.1 - Generalized edema (2) Lower extremity edema Code(s): R60.0 - LOCALIZED EDEMA Qualifiers: Laterality: bilateral Qualified Code(s): R60.0 - Localized edema (3) Pitting edema Code(s): R60.9 - EDEMA, UNSPECIFIED (4) Abdominal pain, diffuse Code(s): R10.84 - GENERALIZED ABDOMINAL PAIN (5) Chest pain Code(s): R07.9 - CHEST PAIN, UNSPECIFIED (6) Chronic systolic congestive heart failure Code(s): I50.22 - CHRONIC SYSTOLIC (CONGESTIVE) HEART FAILURE (7) Hyperbilirubinemia Code(s): E80.6 - OTHER DISORDERS OF BILIRUBIN METABOLISM (8) Hyperlipidemia Code(s): E78.5 - HYPERLIPIDEMIA, UNSPECIFIED (9) Hypertension Code(s): I10 - ESSENTIAL (PRIMARY) HYPERTENSION (10) Hypothyroidism Code(s): E03.9 - HYPOTHYROIDISM, UNSPECIFIED (11) Peripheral neuropathy Code(s): G62.9 - POLYNEUROPATHY, UNSPECIFIED (13) Status post THR (total hip replacement) Code(s): Z96.649 - PRESENCE OF UNSPECIFIED ARTIFICIAL HIP JOINT (14) Tobacco use disorder Code(s): Z72.0 - TOBACCO USE (15) Anasarca Code(s): R60.1 - GENERALIZED EDEMA (16) Acute on chronic systolic and diastolic heart failure, NYHA class 3 Code(s): I50.43 - ACUTE ON CHRONIC COMBINED SYSTOLIC AND DIASTOLIC HRT FAIL (17) CHF (congestive heart failure) Code(s): I50.9 - HEART FAILURE, UNSPECIFIED Qualifiers: Congestive heart failure type: unspecified congestive heart failure type Congestive heart failure chronicity: unspecified congestive heart failure chronicity Qualified Code(s): I50.9 - Heart failure, unspecified (18) CHF (congestive heart failure), NYHA class III Code(s): I50.9 - HEART FAILURE, UNSPECIFIED Qualifiers: Congestive heart failure type: unspecified congestive heart failure type Qualified Code(s): I50.9 - Heart failure, unspecified (19) Cirrhosis of liver Code(s): K74.60 - UNSPECIFIED CIRRHOSIS OF LIVER (20) Coronary artery disease Code(s): I25.10 - ATHSCL HEART DISEASE OF [place] CORONARY ARTERY W/O ANG PCTRS (21) Depression Code(s): F32.9 - MAJOR DEPRESSIVE DISORDER, SINGLE EPISODE, UNSPECIFIED (22) ICD (implantable cardioverter-defibrillator) in place Code(s): Z95.810 - PRESENCE OF AUTOMATIC (IMPLANTABLE) CARDIAC DEFIBRILLATOR (23) Systolic heart failure Code(s): I50.20 - UNSPECIFIED SYSTOLIC (CONGESTIVE) HEART FAILURE (24) Autoimmune hepatitis Code(s): K75.4 - AUTOIMMUNE HEPATITIS Visit type - Emergency Visit Emergency Visit: Yes ED Registration Date: 08/22/16 Care time: The patient presented to the Emergency Department on the above date and was hospitalized for further evaluation of their emergent condition. - New Patient This patient is new to me today: No - Critical Care Critical Care patient: No - Discharge Referral Referred to [facility] Med P.C.: No
[2016-08-23] MEDS ORDERED: traMADol HCL 50 MG TABLET PO PRN (16:00)
[2016-08-23] MEDS ORDERED: LISINOPRIL 10 MG TABLET (FP) PO SCH (16:15)
--- NOTE | 2016-08-23 17:30 | PN ---
Teaching Attending Note Name of Resident: Gia Daley ATTENDING PHYSICIAN STATEMENT I saw and evaluated the patient. I reviewed the resident's note and discussed the case with the resident. I agree with the resident's findings and plan as documented. SUBJECTIVE: no fever or chills.has abd pain , still generalized . cont to have SOB OBJECTIVE: NAD CV : RRR, no MRG Lungs : clear lungs , good air entry . Ext: 1+ pitting edema ABD: soft, TTP in all quadrants even to light touch , nl BS ASSESSMENT AND PLAN: 61 year old female, with a significant past medical history of hypertension, hypercholesterolemia, CAD, [place](X2, s/pp defibrillator/pacemaker and CABG), CHF, DM II, kidney stones and peripheral neuropathy, and hypothyroidism, admitted for ABd pain . 1- Acute on chronic systolic CHF : - cont lasix at current dose and monitor weight and UOP - cont Aldactone at 50 - resume her lisinopril - cont BB - cont plavix 2- Abd pain : chronic . - monitor - dc dilaudid and start tramadol 3- LFTS abnormalities. chronic due to hepatic congestion and possible cirrhosis 4- chronic trop leak , at base line cont BB dc statins due to LFTS abnormalities an last LDL of 48 . DVT px HLOC
[2016-08-23] MEDS ORDERED: ATORVASTATIN CA 20 MG TABLET (FP) PO SCH (22:00)
[2016-08-24] MEDS: FUROSEMIDE 40 MG/4 ML INJECTABLE VIAL IVPUSH SCH ×4 (06:15→20:18)
[2016-08-24] MEDS: LEVOTHYROXINE NA 75 MCG TABLET (FP) PO SCH (06:30)
[2016-08-24] MEDS: TAMSULOSIN HCL 0.4 MG CAP.ER.24H (FP) PO SCH (08:00)
[2016-08-24 09:59] LABS: CALCIUM 8.6 mg/dL (8.5-10.1); CREATININE 1.4 mg/dL (0.55-1.02)
[2016-08-24 10:09] LABS: ALBUMIN 2.8 g/dl (3.4-5.0); BILIRUBIN,DIRECT 2.3 mg/dL (0.0-0.2); BILIRUBIN,TOTAL 2.7 mg/dL (0.2-1.0); MAGNESIUM 1.5 mg/dL (1.8-2.4); TOT PROT 6.5 g/dl (6.4-8.2)
[2016-08-24] MEDS: CLOPIDOGREL BISULFATE 75 MG TABLET (FP) PO SCH (10:30)
[2016-08-24] MEDS: OLANZapine 5 MG TABLET PO SCH ×2 (10:33→21:24)
[2016-08-24] MEDS: POTASSIUM CHLORIDE TABS 20 MEQ TABLET.ER (FP) PO SCH (10:33)
[2016-08-24] MEDS: SPIRONOLACTONE 25 MG TABLET (FP) PO SCH (10:33)
[2016-08-24] MEDS: ENOXAPARIN NA (PORCINE) 40 MG/0.4 ML DISP.SYRIN SQ SCH (10:51)
[2016-08-24] MEDS: METOPROLOL SUCCINATE 50 MG TAB.SR.24H (FP) PO SCH (10:51)
--- NOTE | 2016-08-24 13:23 | PN ---
Teaching Attending Note Name of Resident: Gia Daley ATTENDING PHYSICIAN STATEMENT I saw and evaluated the patient. I reviewed the resident's note and discussed the case with the resident. I agree with the resident's findings and plan as documented. SUBJECTIVE: cont to have SOB and ABd pain . no other complaints . NAD CV : RRR, no MRG Lungs : clear lungs , good air entry . Ext: 2+ pitting edema ABD: soft, TTP in all quadrants even to light touch , nl BS ASSESSMENT AND PLAN: 61 year old female, with a significant past medical history of hypertension, hypercholesterolemia, CAD, [place](X2, s/pp defibrillator/pacemaker and CABG), CHF, DM II, kidney stones and peripheral neuropathy, and hypothyroidism, admitted for ABd pain . 1- Acute on chronic systolic CHF: - cont lasix TID , pt is not compliant with this dosing - hodl lisinopril due to hypotension and to give room for diuresis - cont Aldactone at 50 - cont BB when BP allows . dose can be adjusted - cont plavix 2- Abd pain : chronic . - monitor - tramadol 3- LFTS abnormalities. chronic due to hepatic congestion and possible cirrhosis LFTs improved with diuresis 4- Chronic trop leak , at base line cont BB off statin due to LFTS abn . DVT px HLOC :
--- NOTE | 2016-08-24 15:58 | PN ---
Progress Note, Physician Chief Complaint: Pt sitting up at bedside; no chest pain or dyspnea. Legs are itchy, but less edematous. History of Present Illness: 61-year-old black female with a history of CAD ([place] and CABG in 2004, stents 2, and defibrillator, CHF: severe systolic LV dysfunction, DVT, hypertension, hyperlipidemia, [place] in 2004. 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, and status post laparoscopic cholecystectomy Patient has had chronic abdominal pain for months, and has been hospitalized for same She states her chronic abdominal pain became worse at 5 AM today, and it radiated up into her chest and neck, and down into her legs down to her toes She states she might of been short of breath but wasn't sure, and denies any palpitations She is still complaining of diffuse abdominal pain, radiating up into her right chest, and down her legs into her toes She denies any increase in her chronic lower extremity edema, and states in fact that her legs are less swollen than usual She states the pain is similar to her chronic pain, although worse She denies any cough or fevers or chills She denies any other abdominal surgery, other than her prior cholecystectomy - Current Medication List Current Medications: Active Medications Calamine (Calamine 8% Topical Lotion -) 1 applic TP BID PRN PRN Reason: FOR ITCHING Clopidogrel Bisulfate (Plavix -) 75 mg PO DAILY [facility] Last Admin: 08/24/16 10:30 Dose: 75 mg Enoxaparin Sodium (Lovenox -) 40 mg SQ DAILY [facility] Last Admin: 08/24/16 10:51 Dose: Not Given Furosemide (Lasix Injection -) 80 mg IVPUSH 0600,1400,2000 [facility] Last Admin: 08/24/16 14:17 Dose: 80 mg Levothyroxine Sodium (Synthroid -) 75 mcg PO DAILY@0700 [facility] Last Admin: 08/24/16 06:30 Dose: 75 mcg Metoprolol Succinate (Toprol Xl -) 150 mg PO DAILY [facility] Last Admin: 08/24/16 10:51 Dose: Not Given Multi-Ingredient Lotion (Eucerin (Small Jar) -) 1 applic TP DAILY PRN PRN Reason: DRY SKIN Olanzapine (Zyprexa -) 5 mg PO BID [facility] Last Admin: 08/24/16 10:33 Dose: 5 mg Potassium Chloride (K-Dur -) 20 meq PO DAILY [facility] Last Admin: 08/24/16 10:33 Dose: 20 meq Spironolactone (Aldactone -) 50 mg PO DAILY [facility] Last Admin: 08/24/16 10:33 Dose: 50 mg Tamsulosin HCl (Flomax -) 0.4 mg PO DAILY@0830 [facility] Last Admin: 08/24/16 08:00 Dose: Not Given Tramadol HCl (Ultram -) 50 mg PO Q4H PRN PRN Reason: PAIN - Objective Vital Signs: Vital Signs Temperature 98 F 08/24/16 14:38 Pulse Rate 68 08/24/16 14:38 Respiratory Rate 20 08/24/16 14:38 Blood Pressure 102/54 08/24/16 14:38 O2 Sat by Pulse Oximetry (%) 97 08/24/16 09:00 Constitutional: Yes: Calm Eyes: Yes: WNL HENT: Yes: WNL Neck: Yes: WNL Cardiovascular: Yes: S1, S2 (split) Respiratory: Yes: WNL Gastrointestinal: Yes: Soft ...Rectal Exam: Yes: Deferred Genitourinary: No: Anuria Breast(s): Yes: WNL Musculoskeletal: Yes: Joint Stiffness Extremities: Yes: Cool Edema: Yes Edema: LLE: 1+, RLE: 1+ Peripheral Pulses WNL: No Peripheral Pulses: Left Doralis Pedis: 1+, Right Dorsalis Pedis: 1+ Integumentary: Yes: WNL Neurological: Yes: Alert, Oriented Psychiatric: Yes: Alert, Oriented Labs: CBC, BMP 08/23/16 05:35 08/24/16 09:16 INR, PTT INR 1.83 (0.82-1.09) H 08/22/16 09:44 Abnormal Lab Results 08/25/16 05:35 Chloride 96 L BUN 21 H Random Glucose 72 L D Total Bilirubin 2.7 H Alkaline Phosphatase 134 H Albumin 2.7 L - ....Imaging Other: Image Reviewed (telemetry: no arrythmias) Problem List - Problems (1) Acute combined systolic and diastolic ACC/AHA stage C congestive heart failure Assessment/Plan: Continue metoprolol, aldactone, furosemide. Add ACEI, unless contraindcations exist; if so, would add hydralazine + nitrate. BUN/Cr, electrolytes, Is and Os, daily weight. Code(s): I50.41 - ACUTE COMBINED SYSTOLIC AND DIASTOLIC (CONGESTIVE) HRT FAIL (2) Lower extremity edema Code(s): R60.0 - LOCALIZED EDEMA Qualifiers: Laterality: bilateral Qualified Code(s): R60.0 - Localized edema (3) Orthopnea Code(s): R06.01 - ORTHOPNEA (4) Abdominal pain, diffuse Assessment/Plan: +ascites; hx cholecystectomy. F/u with GI. Code(s): R10.84 - GENERALIZED ABDOMINAL PAIN (5) Chest pain Code(s): R07.9 - CHEST PAIN, UNSPECIFIED (6) ICD (implantable cardioverter-defibrillator) in place Code(s): Z95.810 - PRESENCE OF AUTOMATIC (IMPLANTABLE) CARDIAC DEFIBRILLATOR (7) Migraine headache Code(s): G43.909 - MIGRAINE, UNSP, NOT INTRACTABLE, WITHOUT STATUS MIGRAINOSUS (8) Risk for coronary artery disease greater than 20% in next 10 years Code(s): Z91.89 - OTH PERSONAL RISK FACTORS, NOT ELSEWHERE CLASSIFIED (9) Elevated troponin Assessment/Plan: 0.13-->0.014; this has been her baseline since early 2012. No significant StT changes on EKG. Code(s): R74.8 - ABNORMAL LEVELS OF OTHER SERUM ENZYMES (10) Cigarette nicotine dependence Assessment/Plan: pt says she has stopped for months. Code(s): F17.210 - NICOTINE DEPENDENCE, CIGARETTES, UNCOMPLICATED
--- NOTE | 2016-08-24 16:07 | PN ---
Physical Exam: SUBJECTIVE: Patient seen and examined Patient resting in bed NAD. No acute events overnight or on telemetry. afebrile and hemodynamiclly stable. lisinopril 10 restarted yesterday, BP was 90 systolic overnight, patient was asymptomatic but lasix for last night and this Am was help. Lat afternoon patient refused lasix 80 but agreed to lasix 40 dose. Refusing antidepressant. Has flattened affect, irritable mood. states she still has abd pain. Denies chest pain, sob, n/v, diarrhea, constipation or dysuria. OBJECTIVE: Vital Signs Period Temp Pulse Resp BP Sys/Santoro Pulse Ox Last 24 Hr 97.0 F-98.0 F 50-73 18-20 91-110/54-70 97-98 GENERAL: Awake, alert, and fully oriented, in no acute distress. HEAD: Normal with no signs of trauma. EYES: Pupils equal, round and reactive to light, extraocular movements intact, sclera anicteric, conjunctiva clear. No lid lag. EARS, NOSE, THROAT: Moist mucous membranes. NECK: supple without JVD LUNGS: bibasilar crackles HEART: Regular rate and rhythm, normal S1 and S2 ABDOMEN: Soft, mildly tender diffusely, more so in ruq, not distended, normoactive bowel sounds, no guarding, no rebound, no masses. MUSCULOSKELETAL: No CVA tenderness. UPPER EXTREMITIES: 2+ pulses, warm, well-perfused. No peripheral edema. LOWER EXTREMITIES: 2+ pulses, warm, well-perfused. No calf tenderness. 2+ peripheral edema. NEUROLOGICAL: Cranial nerves II-XII grossly intact. Normal speech. PSYCHIATRIC: Cooperative. no eye contact. flat mood and affect. SKIN: Warm, dry Laboratory Results - last 24 hr 08/24/16 08/24/16 09:16 09:16 Sodium 140 Potassium 3.9 3.9 Chloride 98 Carbon Dioxide 31 Anion Gap 11 BUN 24 H D Creatinine 1.4 H D Random Glucose 120 H D Calcium 8.6 Magnesium 1.5 L Total Bilirubin 2.7 H Direct Bilirubin 2.3 H AST 24 D ALT 21 Alkaline Phosphatase 142 H D Total Protein 6.5 Albumin 2.8 L Active Medications Generic Name Dose Route Start Last Admin Trade Name Freq PRN Reason Stop Dose Admin Calamine 1 applic 08/22/16 12:02 Calamine 8% Topical Lotion - TP BID PRN FOR ITCHING Clopidogrel Bisulfate 75 mg 08/23/16 10:00 08/24/16 10:30 Plavix - PO 75 mg DAILY [facility] Administration Enoxaparin Sodium 40 mg 08/23/16 10:00 08/24/16 10:51 Lovenox - SQ Not Given DAILY [facility] Furosemide 80 mg 08/22/16 14:00 08/24/16 14:17 Lasix Injection - IVPUSH 80 mg 0600,1400,2000 [facility] Administration Levothyroxine Sodium 75 mcg 08/23/16 07:00 08/24/16 06:30 Synthroid - PO 75 mcg DAILY@0700 [facility] Administration Metoprolol Succinate 150 mg 08/23/16 10:00 08/24/16 10:51 Toprol Xl - PO Not Given DAILY [facility] Multi-Ingredient Lotion 1 applic 08/22/16 12:02 Eucerin (Small Jar) - TP DAILY PRN DRY SKIN Olanzapine 5 mg 08/22/16 12:30 08/24/16 10:33 Zyprexa - PO 5 mg BID [facility] Administration Potassium Chloride 20 meq 08/23/16 10:00 08/24/16 10:33 K-Dur - PO 20 meq DAILY [facility] Administration Spironolactone 50 mg 08/23/16 10:00 08/24/16 10:33 Aldactone - PO 50 mg DAILY [facility] Administration Tamsulosin HCl 0.4 mg 08/23/16 08:30 08/24/16 08:00 Flomax - PO Not Given DAILY@0830 [facility] Tramadol HCl 50 mg 08/23/16 16:00 Ultram - PO Q4H PRN PAIN ASSESSMENT/PLAN: This is a 61 yo F with a PMH of chronic abd pain/hyperbilirubinemia thought to be due to liver cirrhosis/biliary tree strictures s/p lap naomi for acalcalous cholecystitis 05/05, severe dilated ischemic cardiomyopathy s/p ICD, CAD s/o [place] 2003, CABG in 2003 s/p stents 2, CHF, DVT, HTN, HLD, Mitral insufficiency, Pulmonary HTN, COPD current smoker and depression, well known to me, who presents due to same abd pain that became worse this AM. EKG: no ACS CXR: congestive changes, no diference from last study CT abd: mild ascites, cirrhotic liver, anasarca Chronic abdominal pain -history if biliarytree/hepatic cirrhosis/presumed autoimmune hepatitis -thought to be caused by ascites -t bili elevated but at baseline -CT abd no acute process -pain likley due to biliary stricture, cardiac congestion, ischemic changes in setting of low EF -tramadol -outpatient f/u with liver specialist -CRP =1 Atypical chest pain -EKG no evidence of ACS -likely radiation from abd pain -BNP elevated from last admission -trop elevated but at baseline -requiers diuresis -Lasix 80 tid IV more important right now. -can hold lisonopril although BP > 90 systolic is acceptable in heart failure as long as patient is symptomatic. -spironolactne 50 d -toprol xl 150 d -plavix 75 d -cardiology consult appreciated HLD -lipitor 20 HS Depression -olanzapine 5 bid Hypothyroid -synthroid 75 d FEN no ivf lytes stable na restricted diet ppx: plavix 40 d Dispo: med vik Problem List - Problems (1) Edema Code(s): R60.9 - EDEMA, UNSPECIFIED Qualifiers: Edema type: generalized Qualified Code(s): R60.1 - Generalized edema (2) Lower extremity edema Code(s): R60.0 - LOCALIZED EDEMA Qualifiers: Laterality: bilateral Qualified Code(s): R60.0 - Localized edema (3) Pitting edema Code(s): R60.9 - EDEMA, UNSPECIFIED (4) Abdominal pain, diffuse Code(s): R10.84 - GENERALIZED ABDOMINAL PAIN (5) Chest pain Code(s): R07.9 - CHEST PAIN, UNSPECIFIED (6) Chronic systolic congestive heart failure Code(s): I50.22 - CHRONIC SYSTOLIC (CONGESTIVE) HEART FAILURE (7) Hyperbilirubinemia Code(s): E80.6 - OTHER DISORDERS OF BILIRUBIN METABOLISM (8) Hyperlipidemia Code(s): E78.5 - HYPERLIPIDEMIA, UNSPECIFIED (9) Hypertension Code(s): I10 - ESSENTIAL (PRIMARY) HYPERTENSION (10) Hypothyroidism Code(s): E03.9 - HYPOTHYROIDISM, UNSPECIFIED (11) Peripheral neuropathy Code(s): G62.9 - POLYNEUROPATHY, UNSPECIFIED (13) Status post THR (total hip replacement) Code(s): Z96.649 - PRESENCE OF UNSPECIFIED ARTIFICIAL HIP JOINT (14) Tobacco use disorder Code(s): Z72.0 - TOBACCO USE (15) Anasarca Code(s): R60.1 - GENERALIZED EDEMA (16) Acute on chronic systolic and diastolic heart failure, NYHA class 3 Code(s): I50.43 - ACUTE ON CHRONIC COMBINED SYSTOLIC AND DIASTOLIC HRT FAIL (17) CHF (congestive heart failure) Code(s): I50.9 - HEART FAILURE, UNSPECIFIED Qualifiers: Congestive heart failure type: unspecified congestive heart failure type Congestive heart failure chronicity: unspecified congestive heart failure chronicity Qualified Code(s): I50.9 - Heart failure, unspecified (18) CHF (congestive heart failure), NYHA class III Code(s): I50.9 - HEART FAILURE, UNSPECIFIED Qualifiers: Congestive heart failure type: unspecified congestive heart failure type Qualified Code(s): I50.9 - Heart failure, unspecified (19) Cirrhosis of liver Code(s): K74.60 - UNSPECIFIED CIRRHOSIS OF LIVER (20) Coronary artery disease Code(s): I25.10 - ATHSCL HEART DISEASE OF [place] CORONARY ARTERY W/O ANG PCTRS (21) Depression Code(s): F32.9 - MAJOR DEPRESSIVE DISORDER, SINGLE EPISODE, UNSPECIFIED (22) ICD (implantable cardioverter-defibrillator) in place Code(s): Z95.810 - PRESENCE OF AUTOMATIC (IMPLANTABLE) CARDIAC DEFIBRILLATOR (23) Systolic heart failure Code(s): I50.20 - UNSPECIFIED SYSTOLIC (CONGESTIVE) HEART FAILURE (24) Autoimmune hepatitis Code(s): K75.4 - AUTOIMMUNE HEPATITIS Visit type - Emergency Visit Emergency Visit: Yes ED Registration Date: 08/22/16 Care time: The patient presented to the Emergency Department on the above date and was hospitalized for further evaluation of their emergent condition. - New Patient This patient is new to me today: No - Critical Care Critical Care patient: No - Discharge Referral Referred to [facility] Med P.C[facility] No
[2016-08-24] MEDS ORDERED: MAGNESIUM SULF 50% (8.12 MEQ/2 ML-1 GM VIAL) IVPB ONE (16:30)
[2016-08-25] MEDS: LEVOTHYROXINE NA 75 MCG TABLET (FP) PO SCH (06:48)
[2016-08-25] MEDS: FUROSEMIDE 40 MG/4 ML INJECTABLE VIAL IVPUSH SCH ×3 (06:48→21:17)
[2016-08-25 07:52] LABS: ALBUMIN 2.7 g/dl (3.4-5.0); CALCIUM 8.8 mg/dL (8.5-10.1)
[2016-08-25 07:55] LABS: BILIRUBIN,TOTAL 2.7 mg/dL (0.2-1.0); COCKROFT - GAULT 64.8975; TOT PROT 6.5 g/dl (6.4-8.2)
[2016-08-25] MEDS: CLOPIDOGREL BISULFATE 75 MG TABLET (FP) PO SCH (09:24)
[2016-08-25] MEDS: METOPROLOL SUCCINATE 50 MG TAB.SR.24H (FP) PO SCH (09:24)
[2016-08-25] MEDS: SPIRONOLACTONE 25 MG TABLET (FP) PO SCH (09:25)
[2016-08-25] MEDS: TAMSULOSIN HCL 0.4 MG CAP.ER.24H (FP) PO SCH (09:25)
[2016-08-25] MEDS: ENOXAPARIN NA (PORCINE) 40 MG/0.4 ML DISP.SYRIN SQ SCH ×2 (09:25→09:30)
[2016-08-25] MEDS: POTASSIUM CHLORIDE TABS 20 MEQ TABLET.ER (FP) PO SCH (09:25)
[2016-08-25] MEDS: OLANZapine 5 MG TABLET PO SCH ×2 (09:25→21:14)
[2016-08-25] MEDS ORDERED: CALAMINE 8% TOPICAL LOTION 177 ML BOTTLE TP PRN (13:52)
[2016-08-25] MEDS ORDERED: MINERAL OIL/PETROLAT/WATER TOPICAL CREAM 113 GM JAR TP PRN (13:52)
--- NOTE | 2016-08-25 15:55 | PN ---
Physical Exam: SUBJECTIVE: Patient seen and examined Patient resting in bed NAD. No acute events overnight or on telemetry. afebrile and hemodynamiclly stable. BP 99/59. States her breathing is better. Refusing various meds but has gotten all prescribed lasix yesterday. 157 lb today from 160. Has flattened affect, irritable mood. states she still has abd pain. Denies chest pain, sob, n/v, diarrhea, constipation or dysuria. OBJECTIVE: Vital Signs Period Temp Pulse Resp BP Sys/Santoro Pulse Ox Last 24 Hr 97.7 F-98.2 F 65-75 18-20 99-116/57-72 95-95 GENERAL: Awake, alert, and fully oriented, in no acute distress. HEAD: Normal with no signs of trauma. EYES: Pupils equal, round and reactive to light, extraocular movements intact, sclera anicteric, conjunctiva clear. No lid lag. EARS, NOSE, THROAT: Moist mucous membranes. NECK: supple without JVD LUNGS: bibasilar crackles HEART: Regular rate and rhythm, normal S1 and S2 ABDOMEN: Soft, mildly tender diffusely, more so in ruq, not distended, normoactive bowel sounds, no guarding, no rebound, no masses. MUSCULOSKELETAL: No CVA tenderness. UPPER EXTREMITIES: 2+ pulses, warm, well-perfused. No peripheral edema. LOWER EXTREMITIES: 2+ pulses, warm, well-perfused. No calf tenderness. 2+ peripheral edema. NEUROLOGICAL: Cranial nerves II-XII grossly intact. Normal speech. PSYCHIATRIC: Cooperative. no eye contact. flat mood and affect. SKIN: Warm, dry Laboratory Results - last 24 hr 08/25/16 05:35 Sodium 139 Potassium 3.7 Chloride 96 L Carbon Dioxide 31 Anion Gap 12 BUN 21 H Creatinine 1.0 D Creat Clearance w eGFR 56.00 Random Glucose 72 L D Calcium 8.8 Total Bilirubin 2.7 H AST 24 ALT 19 Alkaline Phosphatase 134 H Total Protein 6.5 Albumin 2.7 L Active Medications Generic Name Dose Route Start Last Admin Trade Name Freq PRN Reason Stop Dose Admin Calamine 1 applic 08/25/16 13:52 Calamine 8% Topical Lotion - TP BID PRN FOR ITCHING Clopidogrel Bisulfate 75 mg 08/26/16 10:00 Plavix - PO DAILY COUNT INCLUDES [facility] Enoxaparin Sodium 40 mg 08/26/16 10:00 Lovenox - SQ DAILY COUNT INCLUDES THE [facility] Furosemide 80 mg 08/25/16 14:00 08/25/16 15:50 Lasix Injection - IVPUSH 80 mg 0600,1400,2000 COUNT [facility]CLUDES [facility] Administration Levothyroxine Sodium 75 mcg 08/26/16 07:00 Synthroid - PO DAILY@0700 COUNT INCLUDES [facility] Metoprolol Succinate 150 mg 08/26/16 10:00 Toprol Xl - PO DAILY COUNT INCLUDES [facility] Multi-Ingredient Lotion 1 applic 08/25/16 13:52 Eucerin (Small Jar) - TP DAILY PRN DRY SKIN Olanzapine 5 mg 08/25/16 22:00 Zyprexa - PO BID COUNT INCLUDES THE [facility] Potassium Chloride 20 meq 08/26/16 10:00 K-Dur - PO DAILY COUNT INCLUDES THE [facility] Spironolactone 50 mg 08/26/16 10:00 Aldactone - PO DAILY [facility] Tamsulosin HCl 0.4 mg 08/26/16 08:30 Flomax - PO DAILY@0830 [facility]CLUDES [facility] Tramadol HCl 50 mg 08/23/16 16:00 08/25/16 09:25 Ultram - PO 50 mg Q4H PRN Administration PAIN ASSESSMENT/PLAN: This is a 61 yo F with a PMH of chronic abd pain/hyperbilirubinemia thought to be due to liver cirrhosis/biliary tree strictures s/p lap naomi for acalcalous cholecystitis 05/05, severe dilated ischemic cardiomyopathy s/p ICD, CAD s/o AR 2003, CABG in 2003 s/p stents 2, CHF, DVT, HTN, HLD, Mitral insufficiency, Pulmonary HTN, COPD current smoker and depression, well known to me, who presents due to same abd pain that became worse this AM. EKG: no ACS CXR: congestive changes, no diference from last study CT abd: mild ascites, cirrhotic liver, anasarca Chronic abdominal pain -history if biliarytree/hepatic cirrhosis/presumed autoimmune hepatitis -thought to be caused by ascites -t bili elevated but at baseline -CT abd no acute process -pain likley due to biliary stricture, cardiac congestion, ischemic changes in setting of low EF -tramadol -outpatient f/u with liver specialist -will continue diuresis Atypical chest pain -EKG no evidence of ACS -likely radiation from abd pain -BNP elevated from last admission -trop elevated but at baseline -requiers diuresis -Lasix 80 tid IV more important right now. -can hold lisonopril although BP > 90 systolic is acceptable in heart failure as long as patient is symptomatic. -spironolactne 50 d -toprol xl 150 d -plavix 75 d -cardiology consult appreciated HLD -lipitor 20 HS Depression -olanzapine 5 bid Hypothyroid -synthroid 75 d FEN no ivf lytes stable na restricted diet ppx: plavix 40 d Dispo: med vik Problem List - Problems (1) Edema Code(s): R60.9 - EDEMA, UNSPECIFIED Qualifiers: Edema type: generalized Qualified Code(s): R60.1 - Generalized edema (2) Lower extremity edema Code(s): R60.0 - LOCALIZED EDEMA Qualifiers: Laterality: bilateral Qualified Code(s): R60.0 - Localized edema (3) Pitting edema Code(s): R60.9 - EDEMA, UNSPECIFIED (4) Abdominal pain, diffuse Code(s): R10.84 - GENERALIZED ABDOMINAL PAIN (5) Chest pain Code(s): R07.9 - CHEST PAIN, UNSPECIFIED (6) Chronic systolic congestive heart failure Code(s): I50.22 - CHRONIC SYSTOLIC (CONGESTIVE) HEART FAILURE (7) Hyperbilirubinemia Code(s): E80.6 - OTHER DISORDERS OF BILIRUBIN METABOLISM (8) Hyperlipidemia Code(s): E78.5 - HYPERLIPIDEMIA, UNSPECIFIED (9) Hypertension Code(s): I10 - ESSENTIAL (PRIMARY) HYPERTENSION (10) Hypothyroidism Code(s): E03.9 - HYPOTHYROIDISM, UNSPECIFIED (11) Peripheral neuropathy Code(s): G62.9 - POLYNEUROPATHY, UNSPECIFIED (13) Status post THR (total hip replacement) Code(s): Z96.649 - PRESENCE OF UNSPECIFIED ARTIFICIAL HIP JOINT (14) Tobacco use disorder Code(s): Z72.0 - TOBACCO USE (15) Anasarca Code(s): R60.1 - GENERALIZED EDEMA (16) Acute on chronic systolic and diastolic heart failure, NYHA class 3 Code(s): I50.43 - ACUTE ON CHRONIC COMBINED SYSTOLIC AND DIASTOLIC HRT FAIL (17) CHF (congestive heart failure) Code(s): I50.9 - HEART FAILURE, UNSPECIFIED Qualifiers: Congestive heart failure type: unspecified congestive heart failure type Congestive heart failure chronicity: unspecified congestive heart failure chronicity Qualified Code(s): I50.9 - Heart failure, unspecified (18) CHF (congestive heart failure), NYHA class III Code(s): I50.9 - HEART FAILURE, UNSPECIFIED Qualifiers: Congestive heart failure type: unspecified congestive heart failure type Qualified Code(s): I50.9 - Heart failure, unspecified (19) Cirrhosis of liver Code(s): K74.60 - UNSPECIFIED CIRRHOSIS OF LIVER (20) Coronary artery disease Code(s): I25.10 - ATHSCL HEART DISEASE OF [place] CORONARY ARTERY W/O ANG PCTRS (21) Depression Code(s): F32.9 - MAJOR DEPRESSIVE DISORDER, SINGLE EPISODE, UNSPECIFIED (22) ICD (implantable cardioverter-defibrillator) in place Code(s): Z95.810 - PRESENCE OF AUTOMATIC (IMPLANTABLE) CARDIAC DEFIBRILLATOR (23) Systolic heart failure Code(s): I50.20 - UNSPECIFIED SYSTOLIC (CONGESTIVE) HEART FAILURE (24) Autoimmune hepatitis Code(s): K75.4 - AUTOIMMUNE HEPATITIS Visit type - Emergency Visit Emergency Visit: Yes ED Registration Date: 08/22/16 Care time: The patient presented to the Emergency Department on the above date and was hospitalized for further evaluation of their emergent condition. - New Patient This patient is new to me today: No - Critical Care Critical Care patient: No - Discharge Referral Referred to [facility] Med [facility] No
--- NOTE | 2016-08-25 17:45 | PN ---
Teaching Attending Note Name of Resident: Gia Daley ATTENDING PHYSICIAN STATEMENT I saw and evaluated the patient. I reviewed the resident's note and discussed the case with the resident. I agree with the resident's findings and plan as documented. SUBJECTIVE: no fever or chills . admits that SOB is better today . abd pain still the same . OBJECTIVE: CV: RRR, no MRG Lungs: clear lungs, good air entry . Ext: edema , will not allow touching the legs ASSESSMENT AND PLAN: 61 year old female, with a significant past medical history of hypertension, hypercholesterolemia, CAD, PR(X2, s/pp defibrillator/pacemaker and CABG), CHF, DM II, kidney stones and peripheral neuropathy, and hypothyroidism, admitted for ABd pain . 1- Acute on chronic systolic CHF: - cont lasix at current dose. m onitor weight and I&O - cont to hold lisinopril to give more room for diuresis - cont Aldactone at 50 - cont BB when BP allows . - cont plavix 2- Abd pain : chronic . - monitor - Tramadol 3- LFTS abnormalities. chronic due to hepatic congestion and possible cirrhosis monitor 4- Chronic trop leak , at base line cont BB off statin due to LFTS abn . DVT px HLOC
[2016-08-25] MEDS ORDERED: FUROSEMIDE 40 MG/4 ML INJECTABLE VIAL ONE (21:07)
--- NOTE | 2016-08-25 21:57 | HOSP ---
Physical Examination Vital Signs: Vital Signs Temperature 97.4 F L 08/25/16 19:00 Pulse Rate 70 08/25/16 19:00 Respiratory Rate 20 08/25/16 19:00 Blood Pressure 102/68 08/25/16 19:00 O2 Sat by Pulse Oximetry (%) 96 08/25/16 13:30 Labs: CBC, BMP 08/23/16 05:35 08/25/16 05:35
[2016-08-26] MEDS: FUROSEMIDE 40 MG/4 ML INJECTABLE VIAL IVPUSH SCH ×2 (06:33→14:52)
[2016-08-26] MEDS: LEVOTHYROXINE NA 75 MCG TABLET (FP) PO SCH (06:35)
[2016-08-26 09:17] LABS: ALBUMIN 3.1 g/dl (3.4-5.0); BILIRUBIN,TOTAL 2.9 mg/dL (0.2-1.0); CALCIUM 8.6 mg/dL (8.5-10.1); COCKROFT - GAULT 22.1255; CREATININE 1.1 mg/dL (0.55-1.02); MAGNESIUM 1.5 mg/dL (1.8-2.4); PHOSPHOROUS 3.9 mg/dL (2.5-4.9); TOT PROT 7.1 g/dl (6.4-8.2)
[2016-08-26] MEDS ORDERED: PT OWN MED DRAWER 7, Y5N ONE (10:08)
[2016-08-26] MEDS: TAMSULOSIN HCL 0.4 MG CAP.ER.24H (FP) PO SCH (10:09)
[2016-08-26] MEDS: POTASSIUM CHLORIDE TABS 20 MEQ TABLET.ER (FP) PO SCH (10:10)
[2016-08-26] MEDS: ENOXAPARIN NA (PORCINE) 40 MG/0.4 ML DISP.SYRIN SQ SCH (10:10)
[2016-08-26] MEDS: METOPROLOL SUCCINATE 50 MG TAB.SR.24H (FP) PO SCH (10:10)
[2016-08-26] MEDS: OLANZapine 5 MG TABLET PO SCH ×3 (10:10→21:24)
[2016-08-26] MEDS: CLOPIDOGREL BISULFATE 75 MG TABLET (FP) PO SCH (10:10)
[2016-08-26] MEDS: SPIRONOLACTONE 25 MG TABLET (FP) PO SCH (10:11)
--- NOTE | 2016-08-26 13:46 | PN ---
Progress Note (short form) - Note Progress Note: Subjective: no fever or chills, continue to complain of SOB and Abd pain . compliant with her lasix yesterday. Objective: Vital Signs: Last Vital Signs Temp Pulse Resp BP Pulse Ox 97.4 F L 64 18 104/67 99 08/26/16 06:00 08/26/16 06:00 08/26/16 06:00 08/26/16 06:00 08/25/16 21:00 Intake & Output 08/23/16 08/24/16 08/25/16 08/26/16 23:59 23:59 23:59 23:59 Intake Total 321 191 3403 290 Output Total 700 Balance 630 480 460 290 Weight 159 lb 0.6 oz 160 lb 157 lb 6.4 oz 159 lb 0.5 oz Laboratory Results - last 24 hr 08/26/16 07:40 Sodium 132 L Potassium 3.6 Chloride 90 L Carbon Dioxide 32 Anion Gap 10 BUN 23 H Creatinine 1.1 H Creat Clearance w eGFR 50.17 Random Glucose 72 L Calcium 8.6 Phosphorus 3.9 D Magnesium 1.5 L Total Bilirubin 2.9 H AST 27 ALT 21 Alkaline Phosphatase 142 H Total Protein 7.1 Albumin 3.1 L Current Medications Generic Name Dose Route Start Last Admin Trade Name Freq PRN Reason Stop Dose Admin Calamine 1 applic 08/25/16 13:52 Calamine 8% Topical Lotion - TP BID PRN FOR ITCHING Clopidogrel Bisulfate 75 mg 08/26/16 10:00 08/26/16 10:10 Plavix - PO 75 mg DAILY [facility] Administration Enoxaparin Sodium 40 mg 08/26/16 10:00 08/26/16 10:10 Lovenox - SQ Not Given DAILY [facility] Furosemide 80 mg 08/25/16 14:00 08/26/16 06:33 Lasix Injection - IVPUSH 80 mg 0600,1400,2000 [facility] Administration Levothyroxine Sodium 75 mcg 08/26/16 07:00 08/26/16 06:35 Synthroid - PO 75 mcg DAILY@0700 [facility] Administration Metoprolol Succinate 150 mg 08/26/16 10:00 08/26/16 10:10 Toprol Xl - PO 150 mg DAILY [facility] Administration Multi-Ingredient Lotion 1 applic 08/25/16 13:52 Eucerin (Small Jar) - TP DAILY PRN DRY SKIN Olanzapine 5 mg 08/25/16 22:00 08/26/16 10:10 Zyprexa - PO 5 mg BID [facility] Administration Potassium Chloride 20 meq 08/26/16 10:00 08/26/16 10:10 K-Dur - PO 20 meq DAILY [facility] Administration Spironolactone 50 mg 08/26/16 10:00 08/26/16 10:11 Aldactone - PO 50 mg DAILY [facility] Administration Tamsulosin HCl 0.4 mg 08/26/16 08:30 08/26/16 10:09 Flomax - PO 0.4 mg DAILY@0830 [facility] Administration Tramadol HCl 50 mg 08/23/16 16:00 08/25/16 09:25 Ultram - PO 50 mg Q4H PRN Administration PAIN Physical exam: NAD , flat affect. CV: RRR, no MRG Lungs: clear lungs, good air entry . Ext: edema , will not allow touching the legs Abd ; did not allow Abd exam ASSESSMENT AND PLAN: 61 year old female, with a significant past medical history of hypertension, hypercholesterolemia, CAD, CO(X2, s/pp defibrillator/pacemaker and CABG), CHF, DM II, kidney stones and peripheral neuropathy, and hypothyroidism, admitted for ABd pain . 1- Acute on chronic systolic CHF: - Cont lasix and monitor weight . If weight and edema worsens, might need to increase lasix doses or place on lasix gtt - cont to hold lisinopril to give more room for diuresis - cont Aldactone at 50 - cont BB - cont plavix 2- Abd pain : chronic . - monitor - Tramadol 3- LFTS abnormalities. chronic due to hepatic congestion and possible cirrhosis monitor 4- Chronic trop leak, at base line cont BB off statin due to LFTS abn. Will not obtain labs tomorrow DVT px HLOC Visit type - Emergency Visit Emergency Visit: Yes ED Registration Date: 08/22/16 Care time: The patient presented to the Emergency Department on the above date and was hospitalized for further evaluation of their emergent condition. - New Patient This patient is new to me today: No - Critical Care Critical Care patient: No
--- NOTE | 2016-08-26 15:55 | PN ---
Progress Note, Physician Chief Complaint: Pt sitting up at bedside; no chest pain, palpitations, or dyspnea. History of Present Illness: 61-year-old black female with a history of CAD (GA and CABG in 2004, stents 2, and defibrillator, CHF: severe systolic LV dysfunction, DVT, hypertension, hyperlipidemia, GA in 2004. 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, and status post laparoscopic cholecystectomy Patient has had chronic abdominal pain for months, and has been hospitalized for same She states her chronic abdominal pain became worse at 5 AM today, and it radiated up into her chest and neck, and down into her legs down to her toes She states she might of been short of breath but wasn't sure, and denies any palpitations She is still complaining of diffuse abdominal pain, radiating up into her right chest, and down her legs into her toes She denies any increase in her chronic lower extremity edema, and states in fact that her legs are less swollen than usual She states the pain is similar to her chronic pain, although worse She denies any cough or fevers or chills She denies any other abdominal surgery, other than her prior cholecystectomy - Current Medication List Current Medications: Active Medications Calamine (Calamine 8% Topical Lotion -) 1 applic TP BID PRN PRN Reason: FOR ITCHING Clopidogrel Bisulfate (Plavix -) 75 mg PO DAILY [facility] Last Admin: 08/26/16 10:10 Dose: 75 mg Enoxaparin Sodium (Lovenox -) 40 mg SQ DAILY [facility] Last Admin: 08/26/16 10:10 Dose: Not Given Furosemide (Lasix Injection -) 80 mg IVPUSH 0600,1400,2000 [facility] Last Admin: 08/26/16 14:52 Dose: 80 mg Levothyroxine Sodium (Synthroid -) 75 mcg PO DAILY@0700 [facility] Last Admin: 08/26/16 06:35 Dose: 75 mcg Metoprolol Succinate (Toprol Xl -) 150 mg PO DAILY [facility] Last Admin: 08/26/16 10:10 Dose: 150 mg Multi-Ingredient Lotion (Eucerin (Small Jar) -) 1 applic TP DAILY PRN PRN Reason: DRY SKIN Olanzapine (Zyprexa -) 5 mg PO BID [facility] Last Admin: 08/26/16 10:10 Dose: 5 mg Potassium Chloride (K-Dur -) 20 meq PO DAILY [facility] Last Admin: 08/26/16 10:10 Dose: 20 meq Spironolactone (Aldactone -) 50 mg PO DAILY [facility] Last Admin: 08/26/16 10:11 Dose: 50 mg Tamsulosin HCl (Flomax -) 0.4 mg PO DAILY@0830 [facility] Last Admin: 08/26/16 10:09 Dose: 0.4 mg Tramadol HCl (Ultram -) 50 mg PO Q4H PRN PRN Reason: PAIN Last Admin: 08/25/16 09:25 Dose: 50 mg - Objective Vital Signs: Vital Signs Temperature 97.4 F L 08/26/16 06:00 Pulse Rate 64 08/26/16 06:00 Respiratory Rate 18 08/26/16 06:00 Blood Pressure 104/67 08/26/16 06:00 O2 Sat by Pulse Oximetry (%) 99 08/25/16 21:00 Constitutional: Yes: Calm Eyes: Yes: WNL HENT: Yes: WNL Neck: Yes: WNL Cardiovascular: Yes: Pulse Irregular Respiratory: Yes: Regular Gastrointestinal: Yes: Soft ...Rectal Exam: Yes: Deferred Genitourinary: No: Anuria Musculoskeletal: Yes: Joint Stiffness, Muscle Weakness Extremities: Yes: Cool Edema: No Peripheral Pulses WNL: No Peripheral Pulses: Left Doralis Pedis: 1+, Right Dorsalis Pedis: 1+ Integumentary: Yes: Other (LE skin dry, wrinkled (no longer swollen or tense)) Labs: CBC, BMP 08/23/16 05:35 08/26/16 07:40 INR, PTT INR 1.83 (0.82-1.09) H 08/22/16 09:44 Problem List - Problems (1) Acute combined systolic and diastolic ACC/AHA stage C congestive heart failure Assessment/Plan: Continue metoprolol, aldactone, furosemide (change to PO). Add ACEI, unless contraindcations exist; if so, would add hydralazine + nitrate. BUN/Cr, electrolytes, Is and Os, daily weight. From a cardiac standpoint, pt may be followed as outpatient. Code(s): I50.41 - ACUTE COMBINED SYSTOLIC AND DIASTOLIC (CONGESTIVE) HRT FAIL (2) Lower extremity edema Code(s): R60.0 - LOCALIZED EDEMA Qualifiers: Laterality: bilateral Qualified Code(s): R60.0 - Localized edema (3) Orthopnea Code(s): R06.01 - ORTHOPNEA (4) Abdominal pain, diffuse Assessment/Plan: +ascites; hx cholecystectomy. F/u with GI. Code(s): R10.84 - GENERALIZED ABDOMINAL PAIN (5) Chest pain Code(s): R07.9 - CHEST PAIN, UNSPECIFIED (6) ICD (implantable cardioverter-defibrillator) in place Code(s): Z95.810 - PRESENCE OF AUTOMATIC (IMPLANTABLE) CARDIAC DEFIBRILLATOR (7) Migraine headache Code(s): G43.909 - MIGRAINE, UNSP, NOT INTRACTABLE, WITHOUT STATUS MIGRAINOSUS (8) Risk for coronary artery disease greater than 20% in next 10 years Code(s): Z91.89 - OTH PERSONAL RISK FACTORS, NOT ELSEWHERE CLASSIFIED (9) Elevated troponin Assessment/Plan: 0.13-->0.014; this has been her baseline since early 2012. No significant StT changes on EKG. Code(s): R74.8 - ABNORMAL LEVELS OF OTHER SERUM ENZYMES (10) Cigarette nicotine dependence Assessment/Plan: pt says she has stopped for months. Code(s): F17.210 - NICOTINE DEPENDENCE, CIGARETTES, UNCOMPLICATED
[2016-08-26] MEDS ORDERED: traMADol HCL 50 MG TABLET PO PRN (23:16)
--- NOTE | 2016-08-27 01:57 | FALL ---
Fall Exam - Event Witnessed fall: No Location of Fall: Patient Room Fall from: While ambulating (while walking from chair to bed.) - Pre-Fall Fall Risk: High Risk Mental Status: Alert, Oriented, Cooperative Current Medications: Current Medications Generic Name Dose Route Start Last Admin Trade Name Freq PRN Reason Stop Dose Admin Calamine 1 applic 08/25/16 13:52 Calamine 8% Topical Lotion - TP BID PRN FOR ITCHING Clopidogrel Bisulfate 75 mg 08/26/16 10:00 08/26/16 10:10 Plavix - PO 75 mg DAILY [facility] Administration Enoxaparin Sodium 40 mg 08/26/16 10:00 08/26/16 10:10 Lovenox - SQ Not Given DAILY [facility] Furosemide 80 mg 08/27/16 06:00 Lasix - PO BID@0600,1400 [facility] Levothyroxine Sodium 75 mcg 08/26/16 07:00 08/26/16 06:35 Synthroid - PO 75 mcg DAILY@0700 [facility] Administration Metoprolol Succinate 150 mg 08/26/16 10:00 08/26/16 10:10 Toprol Xl - PO 150 mg DAILY [facility] Administration Multi-Ingredient Lotion 1 applic 08/25/16 13:52 Eucerin (Small Jar) - TP DAILY PRN DRY SKIN Olanzapine 5 mg 08/25/16 22:00 08/26/16 21:24 Zyprexa - PO Not Given BID [facility] Potassium Chloride 20 meq 08/26/16 10:00 08/26/16 10:10 K-Dur - PO 20 meq DAILY [facility] Administration Spironolactone 50 mg 08/26/16 10:00 08/26/16 10:11 Aldactone - PO 50 mg DAILY [facility] Administration Tamsulosin HCl 0.4 mg 08/26/16 08:30 08/26/16 10:09 Flomax - PO 0.4 mg DAILY@0830 [facility] Administration Tramadol HCl 50 mg 08/26/16 23:16 08/26/16 23:20 Ultram - PO 50 mg Q4H PRN Administration PAIN - Post-Fall Patient Outcome: No Injury Exam Findings: denies hitting her head, lightheadedness, dizziness, sob, chest pain, palpitations, LOC. she had on her slippers, was using her cane to walk from chair to bed located opposite the chair about 3ft in distance, and lost her footing. she grabbed the bed as she went down on to her right side. she was down for about 1 min, she immediately yelled for assistance and was escorted by nursing onto her feet into bed. PE: lungs: CTAB, CV: s1, s2, rrr, abd: soft, diffusely tender(preexisting tenderness),. ext: UE: 2+ b/l radial pulses, FROM in shoulder, elbows, wrists and fingers. LE: b/l 2+ edema, + DP.preexisting tenderness of b/l le and b/l knee. wnl range of motion on right knee, skin intact, no swelling/erythema. hip extension anteriorly L>R, flexion/ extesion of b/l knees at pt's baseline. 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 Pt declined pain medication, sitting comfortably in bed. vital signs stable, no head injury, low suspicion for cardiac or neurogenic cause of fall. will defer head ct. currently no erythema/ bruising, will reasses in the AM for any development of hematoma or worsening of pain. bed alarm initiated and pt counseled on calling nursing for ambulatory support. Treatment: Analgesia (decline further oral pain medications, had received tramadol at 11:20pm.), Ice Pack (provide ice for right knee) Vital Signs: Vital Signs 107/75 pulse ox 100% on 2lpm, hr 65, rrr, resp 14 t98.6 LOC Post-Fall: Awake, Alert, Oriented Identify factors for HIGH RISK for Head Injury: Pt on anticoagulant (plavix, lovenox for dvt) Critical Care Total Critical Care Time (in minutes): 45 Critical Care Statement: The care of this patient involved high complexity decision making to prevent further life threatening deterioration of the patient 's condition and/or to evalute & treat vital organ system(s) failure or risk of failure.
[2016-08-27] MEDS ORDERED: FUROSEMIDE 40 MG TABLET (FP) PO SCH (06:00)
[2016-08-27] MEDS: LEVOTHYROXINE NA 75 MCG TABLET (FP) PO SCH (06:37)
[2016-08-27 08:20] LABS: CALCIUM 8.5 mg/dL (8.5-10.1); COCKROFT - GAULT 49.8015; CREATININE 1.3 mg/dL (0.55-1.02)
[2016-08-27] MEDS ORDERED: PT OWN MED DRAWER 7, Y5N ONE ×2 (09:58→10:07)
[2016-08-27 10:01] VITALS: TEMP 97.3
[2016-08-27] MEDS: ENOXAPARIN NA (PORCINE) 40 MG/0.4 ML DISP.SYRIN SQ SCH ×2 (10:02→10:06)
[2016-08-27] MEDS: TAMSULOSIN HCL 0.4 MG CAP.ER.24H (FP) PO SCH (10:02)
[2016-08-27] MEDS: CLOPIDOGREL BISULFATE 75 MG TABLET (FP) PO SCH (10:02)
[2016-08-27] MEDS: METOPROLOL SUCCINATE 50 MG TAB.SR.24H (FP) PO SCH (10:02)
[2016-08-27] MEDS: SPIRONOLACTONE 25 MG TABLET (FP) PO SCH (10:03)
[2016-08-27] MEDS: OLANZapine 5 MG TABLET PO SCH (10:03)
[2016-08-27] MEDS: POTASSIUM CHLORIDE TABS 20 MEQ TABLET.ER (FP) PO SCH (10:08)
--- NOTE | 2016-08-27 13:46 | PN ---
Progress Note, Physician Chief Complaint: Pt ambulates slowly without chest pain or dyspnea. History of Present Illness: 61-year-old black female with a history of CAD (IL and CABG in 2004, stents 2, and defibrillator, CHF: severe systolic LV dysfunction, DVT, hypertension, hyperlipidemia, IL in 2004. 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, and status post laparoscopic cholecystectomy Patient has had chronic abdominal pain for months, and has been hospitalized for same She states her chronic abdominal pain became worse at 5 AM today, and it radiated up into her chest and neck, and down into her legs down to her toes She states she might of been short of breath but wasn't sure, and denies any palpitations She is still complaining of diffuse abdominal pain, radiating up into her right chest, and down her legs into her toes She denies any increase in her chronic lower extremity edema, and states in fact that her legs are less swollen than usual She states the pain is similar to her chronic pain, although worse She denies any cough or fevers or chills She denies any other abdominal surgery, other than her prior cholecystectomy - Objective Vital Signs: Vital Signs Temperature 97.3 F L 08/27/16 10:00 Pulse Rate 65 08/27/16 10:00 Respiratory Rate 20 08/27/16 10:00 Blood Pressure 109/70 08/27/16 10:00 O2 Sat by Pulse Oximetry (%) 96 08/26/16 21:00 Constitutional: Yes: No Distress Eyes: Yes: WNL HENT: Yes: WNL Neck: Yes: WNL Cardiovascular: Yes: Regular Rate and Rhythm Respiratory: Yes: Regular Gastrointestinal: Yes: Soft. No: Tenderness ...Rectal Exam: Yes: Deferred Genitourinary: No: Anuria Musculoskeletal: Yes: Joint Stiffness, Muscle Weakness Extremities: Yes: Cool Edema: No Peripheral Pulses WNL: No Peripheral Pulses: Left Doralis Pedis: 1+, Right Dorsalis Pedis: 1+ Integumentary: Yes: Venous Stasis Changes Neurological: Yes: Alert, Oriented, Weakness Psychiatric: Yes: Other Labs: CBC, BMP 08/23/16 05:35 08/27/16 06:15 INR, PTT INR 1.83 (0.82-1.09) H 08/22/16 09:44 Abnormal Lab Results 08/27/16 06:15 Sodium 132 L Chloride 90 L BUN 27 H Creatinine 1.3 H Problem List - Problems (1) Acute combined systolic and diastolic ACC/AHA stage C congestive heart failure Assessment/Plan: Continue metoprolol, aldactone, furosemide (change to PO). Add ACEI, unless contraindcations exist; if so, would add hydralazine + nitrate. BUN/Cr, electrolytes noted (mild increase in Cr to 1.3);Is and Os, daily weight. From a cardiac standpoint, pt may be followed as outpatient. As discussed with Dr. Haas, furosemide will be decreased to 40 mg bid, with additional doses prn for recurrence of CHF. Code(s): I50.41 - ACUTE COMBINED SYSTOLIC AND DIASTOLIC (CONGESTIVE) HRT FAIL (2) Lower extremity edema Code(s): R60.0 - LOCALIZED EDEMA Qualifiers: Laterality: bilateral Qualified Code(s): R60.0 - Localized edema (3) Orthopnea Code(s): R06.01 - ORTHOPNEA (4) Abdominal pain, diffuse Assessment/Plan: +ascites; hx cholecystectomy. F/u with GI. Code(s): R10.84 - GENERALIZED ABDOMINAL PAIN (5) Chest pain Code(s): R07.9 - CHEST PAIN, UNSPECIFIED (6) ICD (implantable cardioverter-defibrillator) in place Code(s): Z95.810 - PRESENCE OF AUTOMATIC (IMPLANTABLE) CARDIAC DEFIBRILLATOR (7) Migraine headache Code(s): G43.909 - MIGRAINE, UNSP, NOT INTRACTABLE, WITHOUT STATUS MIGRAINOSUS (8) Risk for coronary artery disease greater than 20% in next 10 years Code(s): Z91.89 - OTH PERSONAL RISK FACTORS, NOT ELSEWHERE CLASSIFIED (9) Elevated troponin Code(s): R74.8 - ABNORMAL LEVELS OF OTHER SERUM ENZYMES (10) Cigarette nicotine dependence Code(s): F17.210 - NICOTINE DEPENDENCE, CIGARETTES, UNCOMPLICATED
[2016-08-27 15:20] VITALS: BP 110/70; PULSE 70
--- NOTE | 2016-08-27 17:11 | DS ---
Physical Examination Vital Signs: Vital Signs Temperature 97.3 F L 08/27/16 11:32 Pulse Rate 70 08/27/16 11:32 Respiratory Rate 20 08/27/16 11:32 Blood Pressure 110/70 08/27/16 11:32 O2 Sat by Pulse Oximetry (%) 96 08/27/16 09:00 Findings/Remarks: no fever ro chills, her breathing is better today . cont to have abd pain . PE: NAD , flat affect. CV: RRR. 3/6 SM at LLSB Lungs: clear lungs, good air entry . Ext: edema , will not allow touching the legs Abd ; did not allow Abd exam Labs: CBC, BMP 08/23/16 05:35 08/27/16 06:15 Discharge Summary Reason For Visit: DIFFUSE ABD PAIN,ELEVATED TROPONIN LEVEL,CHEST SCOUT Current Active Problems Acute combined systolic and diastolic ACC/AHA stage C congestive heart failure ( Acute) Abdominal pain, diffuse (Chronic) Chest pain (Chronic) Chronic systolic congestive heart failure (Chronic) Dyspepsia (Chronic) Hyperbilirubinemia (Chronic) Hyperlipidemia (Chronic) Hypertension (Chronic) Lower extremity edema (Chronic) Peripheral neuropathy (Chronic) Restless leg syndrome (Chronic) Sphincter of Oddi dysfunction (Chronic) Status post THR (total hip replacement) (Chronic) Transaminitis (Chronic) Hospital Course: 61 year old female, with a significant past medical history of hypertension, hypercholesterolemia, CAD, ME(X2, s/pp defibrillator/pacemaker and CABG), CHF, DM II, kidney stones and peripheral neuropathy, and hypothyroidism, admitted for ABd pain . she was found to be in acute CHF exacerbation . she was given IV lasix , and continued on her home medications , but her BP had dropped and lisinopril was held during this hospitalizati on to give more room for diuresis . at wy , she is euvolemic again, but stillhas her chronci SOB and abd pain. BB was decreased to 100 daily to allow fro ACEI use ( lisinopril 10 mg daily ) . she was sent on 80 mg of lasix BID she was seen by card this admission . Her LFTS were elevated but remained stable , during htis hospital stay, they were attributed to her chronci liver congestion and possible cirrhosis . she is to follow with her liver specialist as out pt . condition at dc: improved f/u card , PCP and GI time spent 40 min Condition: Improved - Instructions Diet, Activity, Other Instructions: please follow with your PCP Dr. Ferrer - please follow with Dr. Wallace - take your lasix twice a day as instructed., - your metoprolol dose was decreased from 150 mg to 100 mg daily due to low blood pressure ( if you have 50 mg tablets you can take 2 pills ) a prescription of the 100 mg tablets was sent too your [facility] . Please do not duplicate - take lisinopril 10 mg daily - check your blood pressure daily , call your heart doctor if BP < 100 - follow with your liver doctor please Referrals: Bryson Ferrer MD [Staff Physician] - 1 Week Dick Cage MD [Staff Physician] - 1 Week Disposition: VNS/HOME HEALTH CARE - Home Medications Comprehensive Discharge Medication List: Ambulatory Orders Atorvastatin Ca [Lipitor] 20 mg PO DAILY #30 tab 08/04/16 Calamine 8% Topical Lotion - 1 applic TP BID PRN #0 bottle 08/04/16 Clopidogrel Bisulfate [Plavix -] 75 mg PO DAILY #30 tablet 08/04/16 Levothyroxine [Synthroid -] 75 mcg PO DAILY #30 tab 08/04/16 Mineral Oil/Petrolat,Wht/Water [Eucerin (Large Jar) -] 1 applic TP DAILY PRN #0 jar 08/04/16 Spironolactone 50 mg PO DAILY #30 tablet 08/04/16 Furosemide [Lasix -] 80 mg PO BID #60 tablet 08/27/16 Lisinopril 10 mg PO DAILY #30 tablet 08/27/16 Metoprolol Succinate [Toprol Xl] 100 mg PO DAILY #30 tab.er.24h 08/27/16 Potassium Chloride 20 meq PO DAILY #30 tab 08/27/16 This patient is new to me today: No Emergency Visit: Yes ED Registration Date: 08/22/16 Care time: The patient presented to the Emergency Department on the above date and was hospitalized for further evaluation of their emergent condition. Critical Care patient: No - Discharge Referral Referred to [facility] No
== END 2016-08-27 13:34 | disposition home health service (06) | DRG 444 ==
LOC: JER 07:42 → JERBED 12:15 → J4W 17:15 → J5S 08-25 11:48
PROVIDERS: ADMIT Internal Medicine; ATTEND Internal Medicine
DX: K83.1 Obstruction of bile duct (principal); I50.23 Acute on chronic systolic (congestive) heart failure; R18.8 Other ascites; G89.29 Other chronic pain; G62.9 Polyneuropathy, unspecified; R10.9 Unspecified abdominal pain; E03.9 Hypothyroidism, unspecified; R07.89 Other chest pain; E78.5 Hyperlipidemia, unspecified; F32.9 Major depressive disorder, single episode, unspecified; I25.10 Atherosclerotic heart disease of native coronary artery without angina pectoris; Z98.61 Coronary angioplasty status; Z95.1 Presence of aortocoronary bypass graft; I25.2 Old myocardial infarction; F17.210 Nicotine dependence, cigarettes, uncomplicated; I25.5 Ischemic cardiomyopathy; I11.0 Hypertensive heart disease with heart failure; R10.11 Right upper quadrant pain; E11.9 Type 2 diabetes mellitus without complications
CPT/HCPCS: 36415; 71010-TC; 74176-TC; 80048; 80053; 80076; 81003; 81015; 82550; 82553; 83690; 83735; 83880; 84100; 84132; 84443; 84484; 85027; 85610; 86140; 93005; 93010; 99283-25

== ENCOUNTER 2016-09-08 19:37 | Inpatient (IN) | payer OTHER, BC ==
--- NOTE | 2016-09-08 19:42 | PDOC ---
History of Present Illness - General History Source: Patient, EMS, Old Records Exam Limitations: No Limitations <Trini Araujo - Last Filed: 09/08/16 21:51> <Dexter Otero - Last Filed: 09/08/16 22:15> - General Stated Complaint: CHEST PAIN Time Seen by Provider: 09/08/16 19:41 - History of Present Illness Initial Comments: 09/08/16 21:42 The patient is a 61 year old female, with a significant past medical history of hypertension, hypercholesterolemia, diabetes, coronary artery disease s/p defibrillator/pacemaker s/p CABG, OH, CHF, hypothyroidism, kidney stones and peripheral neuropathy, who presents to the emergency department with abdominal pain since approximately 4:30 PM this afternoon. The patient describes the pain as sharp and localizes it to the periumbilical area but states that it radiates upwards to her chest. The patient rates her pain as a 10/10 in severity. The patient additionally endorses shortness of breath, the patient reports needing to use 2 pillows to sleep at night in order to breathe. At baseline, the patient has chronic lower extremity edema but reports that her lower extremities have been more swollen over the past couple of days. The patient denies fever, chills, cough, nausea, vomiting, diarrhea, constipation or dysuria. This patient is well known to this hospital with multiple admissions in the past couple of months. Allergies: Aspirin. Past Surgical History: PEG tube placement, Stent placement x 2, CABG (2003), ICD /Pacemaker (11/2014), Cholecystectomy (04/2016). Social History: Current everyday smoker (3 cigarettes per day). Denies alcohol or drug use. PCP: Dr. Parrish Ferrer Dielectric Tester: Dr. Dick Cage (Trini Araujo) Past History <Trini Araujo - Last Filed: 09/08/16 21:51> - Past Medical History Anemia: No Asthma: Yes Cancer: No Cardiac Disorders: Yes (Stents, PM/Defib.) CVA: No COPD: No CHF: Yes Dementia: No Diabetes: No GI Disorders: Yes Disorders: No HTN: Yes Hypercholesterolemia: Yes Liver Disease: Yes Psychiatric Problems: Yes (depression.) Suicide Attempt (Hx): No Seizures: No Thyroid Disease: Yes (Hypo) - Surgical History Abdominal Surgery: Yes (hx of peg tube.) Appendectomy: No Cardiac Surgery: Yes (bypass,stent x2, CABG 2003, ICD/Pacer 12/02) Cholecystectomy: Yes (04/2016) Lung Surgery: (cabg 2003) Neurologic Surgery: No Orthopedic Surgery: Yes (Right THR) - Immunization History Immunization Up to Date: Yes - Psycho/Social/Smoking Cessation Hx Anxiety: No Suicidal Ideation: No Smoking Status: No Smoking History: Current every day smoker Have you smoked in the past 12 months: Yes Number of Cigarettes Smoked Daily: 5 'Breaking Loose' booklet given: 07/22/16 Hx Alcohol Use: No Drug/Substance Use Hx: No Substance Use Type: None Hx Substance Use Treatment: No <Dexter Otero - Last Filed: 09/08/16 22:15> - Past Medical History Allergies/Adverse Reactions: Allergies Allergy/AdvReac Type Severity Reaction Status Date / Time aspirin Allergy Mild Rash Verified 09/08/16 20:07 Home Medications: Ambulatory Orders Calamine 8% Topical Lotion - 1 applic TP BID PRN #0 bottle 08/04/16 Clopidogrel Bisulfate [Plavix -] 75 mg PO DAILY #30 tablet 08/04/16 Levothyroxine [Synthroid -] 75 mcg PO DAILY #30 tab 08/04/16 Mineral Oil/Petrolat,Wht/Water [Eucerin (Large Jar) -] 1 applic TP DAILY PRN #0 jar 08/04/16 Spironolactone 50 mg PO DAILY #30 tablet 08/04/16 Furosemide [Lasix -] 80 mg PO BID #60 tablet 08/27/16 Lisinopril 10 mg PO DAILY #30 tablet 08/27/16 Metoprolol Succinate [Toprol Xl] 100 mg PO DAILY #30 tab.er.24h 08/27/16 Potassium Chloride 20 meq PO DAILY #30 tab 08/27/16 Atorvastatin Ca [Lipitor] 20 mg PO HS 09/08/16 Cardiac Specific PMH - Complaint Specific PMHX Pacemaker: Yes <Dexter Otero - Last Filed: 09/08/16 22:15> Review of Systems - Review of Systems Able to Perform ROS?: Yes <Trini Araujo - Last Filed: 09/08/16 21:51> <Dexter Otero - Last Filed: 09/08/16 22:15> - Review of Systems Comments:: 09/08/16 20:50 CONSTITUTIONAL: No fever, no chills, no fatigue EYES: No visual changes ENT: No ear pain, no sore throat CARDIOVASCULAR: +Chest pain. No palpitations RESPIRATORY: +Shortness of Breath. No cough GI: +Abdominal pain. No nausea, no vomiting, no constipation, no diarrhea GENITOURINARY: No dysuria, no frequency, no hematuria MUSKULOSKELETAL: No back pain, no joint pain, no myalgias EXTREMITIES: +Bilateral lower extremity edema SKIN: No rash NEURO: No headache (Trini Araujo) *Physical Exam <Trini Araujo - Last Filed: 09/08/16 21:51> <Dexter Otero - Last Filed: 09/08/16 22:15> - Vital Signs Last Vital Signs Temp Pulse Resp BP Pulse Ox 97.9 F 94 H 18 123/88 99 09/08/16 19:40 09/08/16 19:40 09/08/16 19:40 09/08/16 19:40 09/08/16 20:58 - Physical Exam Comments: 09/08/16 22:09 EXAMINATION CONSTITUTIONAL: Awake and alert; well-nourished; mildly dyspneic; HEAD: Normocephalic; atraumatic EYES: PERRL; EOM intact ENMT: External appears normal; normal oropharynx NECK: Supple; non-tender; + JVD CARD: Normal S1, S2; 2/6 se murmurs, no rubs, or gallops RESP: Normal chest excursion with respiration; breath sounds clear and equal bilaterally; no wheezes, rhonchi, or rales ABD: Soft, non-distended; + mild epigastric tender; no palpable organomegaly, no palpable hernias EXT: +2 pitting edema bilaterally; distal pulses decreased due edema bilaterally SKIN: Warm, dry, no rash NEURO: No focal neurological deficiencies. (Dexter Otero) Heart Score/ECG Review #1 ECG reviewed & interpreted by me at: 19:42 (Vent Rate: 94 bpm. Normal sinus rhythm. Rightward axis. Cannot rule out anteroseptal infarct, age undetermined. Unchanged from prior ECG dated 08/22/2016.) #2 ECG reviewed & interpreted by me at: 21:23 (Vent Rate: 92 bpm. Sinus rhythm with occasional premature ventricular complexes. Rightward axis. Nonspecific intraventricular block. Cannot rule out anterior infarct, age undetermined. ) <Trini Araujo - Last Filed: 09/08/16 21:51> ED Treatment Course - LABORATORY CBC & Chemistry Diagram: 09/08/16 20:15 09/08/16 20:15 <Trini Araujo - Last Filed: 09/08/16 21:51> - LABORATORY CBC & Chemistry Diagram: 09/08/16 20:15 09/08/16 20:15 <Dexter Otero - Last Filed: 09/08/16 22:15> - ADDITIONAL ORDERS Additional order review: Laboratory Results 09/08/16 20:15 Sodium 140 Potassium 3.2 L Chloride 103 D Carbon Dioxide 26 Anion Gap 11 BUN 22 H Creatinine 0.9 D Creat Clearance w eGFR > 60 Random Glucose 110 H D Calcium 8.4 L Magnesium 1.8 Total Bilirubin 4.0 H D AST 39 H D ALT 23 Alkaline Phosphatase 148 H Creatine Kinase 264 H D Troponin I 0.12 H B-Natriuretic Peptide 3000.23 H Total Protein 7.2 Albumin 3.1 L Lipase 39 L 09/08/16 20:15 RBC 4.80 MCV 81.0 MCHC 32.5 RDW 21.5 H MPV 8.6 Neutrophils % 67.2 Lymphocytes % 19.5 Monocytes % 12.7 H Eosinophils % 0.0 Basophils % 0.6 - RADIOLOGY Radiology Studies Ordered: Category Date Time Status CHEST X-RAY PORTABLE* [RAD] Stat Radiology 09/08/16 19:56 Completed - Medications Given in the ED: ED Medications Discontinued Medications Generic Name Dose Route Start Last Admin Trade Name Freq PRN Reason Stop Dose Admin Furosemide 40 mg 09/08/16 21:31 09/08/16 21:43 Lasix Injection - IVPUSH 09/08/16 21:32 40 mg ONCE ONE Administration Furosemide 40 mg 09/08/16 21:33 09/08/16 21:43 Lasix Injection - IVPUSH 09/08/16 21:34 40 mg ONCE ONE Administration Nitroglycerin 0.4 mg 09/08/16 21:12 09/08/16 21:17 Nitrostat - SL 04/21/17 21:13 0.4 mg ONCE ONE Administration Nitroglycerin 1 inch 09/08/16 21:12 09/08/16 21:17 Nitro-Bid 2% Paste - TD 09/08/16 21:13 1 inch ONCE ONE Administration Medical Decision Making <Trini Araujo - Last Filed: 09/08/16 21:51> <Dexter Otero - Last Filed: 09/08/16 22:15> - Medical Decision Making 09/08/16 21:36 EXAM: RAD/CHEST X-RAY PORTABLE Reviewed By: Dr. Ildefonso Marinelli IMPRESSION: Cardiomegaly with no signs of pneumonia or acute vascular congestion in the lungs. Call placed to the patients eye technician, Dr. Cage, at at 21:35. Referred to answering service, awaiting callback. Dr. Davis returned call at 21:43, case discussed. (Trini Araujo) 09/08/16 22:10 Patient is 61-year-old female with multiple comorbidities, noncompliant with her medication regimen presents with chest discomfort that was relieved by sublingual nitroglycerin, chronic abdominal pain that became worse on the day of arrival and worsening lower extremity edema since she was discharged from this hospital. In the ER, patient is awake and alert, hemodynamically stable, with oxygen saturation 98% on room air. Patient is mildly dyspneic with soft and mildly distended abdomen and +2 pitting edema of lower extremities. Chest x- ray reveals persistent cardiomegaly without evidence of CHF; CBC is unchanged; CMP reveals mild hyperkalemia with a persistently elevated troponin which is likely related to acute cardiac event. BNP is noted to be above 3000. EKG reveals normal sinus rhythm with the right axis deviation, and inverted T waves and V5 and V6 when compared to previously obtain an EKG from 08/22/2016. Will rule out OH with serial cardiac enzymes, will administer IV diuretics for worsening CHF and peripheral edema. We'll administer Plavix as patient is aspirin ALLERGIC. We'll administer Lasix and K-Dur. Case discussed with Dr. Davis of cardiology. Will place in observation to telemetry for further treatment. (Dexter Otero) *DC/Admit/Observation/Transfer <Trini Araujo - Last Filed: 09/08/16 21:51> - Discharge Dispostion Admit: Yes <Dexter Otero - Last Filed: 09/08/16 22:15> Diagnosis at time of Disposition: Chronic systolic congestive heart failure, Hypokalemia Chest pain Qualifiers: Chest pain type: unspecified Qualified Code(s): R07.9 - Chest pain, unspecified Lower extremity edema Qualifiers: Laterality: bilateral Qualified Code(s): R60.0 - Localized edema - Discharge Dispostion Decision to Admit order Date/Time: Decision to Admit Order Category Date Time Status Decision to Admit to Hospital Routine Admission 09/08/16 22:13 Active - Attestations Scribe Attestion: 09/08/16 19:55 Documentation prepared by Trini Araujo, acting as medical insurance claims specialist for Dexter Otero MD. (Trini Araujo) Physician Attestion: 09/08/16 22:09 The documentation was prepared by the scribe under my direct supervision. I have reviewed the documentation which correctly represents the findings, medical decision-making and critical action taken by me. (Dexter Otero)
[2016-09-08 20:26] LABS: BASOPHIL 0.6 % (0-2.0); MCH 26.3 pg (25.7-33.7); MCHC 32.5 g/dl (32.0-36.0); MEAN PLT VOLUME 8.6 fl (7.5-11.1); NEUTROPHILS 67.2 % (42.8-82.8); PLATELET COUNT 211 K/MM3 (134-434); RDW 21.5 % (11.6-15.6); WHITE BLOOD COUNT 6.4 K/mm3 (4.0-10.0)
[2016-09-08 20:53] LABS: ALBUMIN 3.1 g/dl (3.4-5.0); ANION GAP 11 (8-16); CALCIUM 8.4 mg/dL (8.5-10.1); CO2 26 mmol/L (21-32); COCKROFT - GAULT 84.7535; CREATININE 0.9 mg/dL (0.55-1.02); GLUCOSE,RANDOM 110 mg/dL (74-106); MAGNESIUM 1.8 mg/dL (1.8-2.4); SGOT/AST 39 U/L (15-37); SGPT/ALT 23 U/L (12-78); TOT PROT 7.2 g/dl (6.4-8.2)
[2016-09-08 20:56] LABS: ALK PHOS 148 U/L (45-117); TROPONIN I 0.12 ng/ml (0.00-0.05)
[2016-09-08] MEDS ORDERED: NITROGLYCERIN 2% OINTMENT - 1GM PACKET TD ONE ×2 (21:12→21:15)
[2016-09-08] MEDS ORDERED: NITROGLYCERIN SUBLINGUAL 1/150 0.4 MG TAB SL ONE (21:12)
[2016-09-08] MEDS ORDERED: CLOPIDOGREL BISULFATE 75 MG TABLET (FP) PO ONE (21:30)
[2016-09-08] MEDS ORDERED: FUROSEMIDE 40 MG/4 ML INJECTABLE VIAL IVPUSH ONE ×2 (21:31→21:33)
[2016-09-08] MEDS ORDERED: POTASSIUM CHLORIDE TABS 20 MEQ TABLET.ER (FP) PO ONE (21:31)
[2016-09-08] MEDS ORDERED: FUROSEMIDE 40 MG/4 ML INJECTABLE VIAL ONE (21:33)
[2016-09-08 21:56] LABS: HYPOCHROMIA 2+; PLATELET ESTIMATE ADEQUATE (NORMAL); POLYCHROMASIA 1+
[2016-09-08] MEDS ORDERED: ACETAMINOPHEN 325 MG TABLET (FP) PO PRN (22:27)
--- NOTE | 2016-09-08 22:33 | HP ---
CHIEF COMPLAINT: ABDOMINAL PAIN PCP:[facility] Consultant: Fauzia HISTORY OF PRESENT ILLNESS: Patient is a 61 year old female with PMH of chronic abdominal pain (thought to be due to liver cirrhosis/biliary tree strictures s/p lap naomi for acalcalous cholecystitis 05/05), HTN, HLD, DM, CAD s/p [place] 2003, CABG in 2003 s/p stents2, Systolic CHF s/p ICD/Pacemaker, COPD, current smoker, hypothyroid & peripheral neuropathy who presents to ED with abdominal pain. Patient states that abdominal pain started this afternoon around 4pm. She describes the pain as 10/ 10 in severity, periumbical, radiating up towards epigastric region & associated with SOB. She also has increased swelling in both legs that is chronic but has worsened in last few days. She states she has been noncompliant with her medications lately due to financial issues. The patient denies fever, chills, cough, nausea, vomiting, diarrhea, constipation or dysuria ER course was notable for: (1) Troponin elevated at 0.12, but has history of chronically elevated troponins (2) CXR (-) for acute pathology (3) Lasix 80mg IV given along with nitro paste, which improved epigastric pain Recent Travel: none noted PAST MEDICAL HISTORY: as above PAST SURGICAL HISTORY: PEG tube placement, Stent placement x 2, CABG (2003), ICD/Pacemaker (11/2014), Cholecystectomy (04/2016). Social History: Smokin-10 cigarettes per day Alcohol:none reported Drugs: none reported Family History: noncontributory Allergies aspirin Allergy (Mild, Verified 09/08/16 20:07) Rash HOME MEDICATIONS: Home Medications Medication Instructions Recorded Calamine 8% Topical Lotion - 1 applic TP BID PRN #0 bottle 08/04/16 Clopidogrel Bisulfate [Plavix -] 75 mg PO DAILY #30 tablet 08/04/16 Levothyroxine [Synthroid -] 75 mcg PO DAILY #30 tab 08/04/16 Mineral Oil/Petrolat,Wht/Water 1 applic TP DAILY PRN #0 jar 08/04/16 [Eucerin (Large Jar) -] Spironolactone 50 mg PO DAILY #30 tablet 08/04/16 Furosemide [Lasix -] 80 mg PO BID #60 tablet 08/27/16 Lisinopril 10 mg PO DAILY #30 tablet 08/27/16 Metoprolol Succinate [Toprol Xl] 100 mg PO DAILY #30 tab.er.24h 08/27/16 Potassium Chloride 20 meq PO DAILY #30 tab 08/27/16 Atorvastatin Ca [Lipitor] 20 mg PO HS 09/08/16 REVIEW OF SYSTEMS CONSTITUTIONAL: Absent: fever, chills, diaphoresis, generalized weakness, malaise, loss of appetite, weight change HEENT: Absent: rhinorrhea, nasal congestion, throat pain, throat swelling, difficulty swallowing, mouth swelling, ear pain, eye pain, visual changes CARDIOVASCULAR: (+)peripheral edema Absent: chest pain, syncope, palpitations, irregular heart rate, lightheadedness RESPIRATORY: (+)dyspnea with exertion, Absent: cough, shortness of breath, orthopnea, wheezing, stridor, hemoptysis GASTROINTESTINAL: (+)abdominal pain, abdominal distension, Absent: nausea, vomiting, diarrhea, constipation, melena, hematochezia GENITOURINARY: Absent: dysuria, frequency, urgency, hesitancy, hematuria, flank pain, genital pain MUSCULOSKELETAL: Absent: myalgia, arthralgia, joint swelling, back pain, neck pain SKIN: Absent: rash, itching, pallor HEMATOLOGIC/IMMUNOLOGIC: Absent: easy bleeding, easy bruising, lymphadenopathy, frequent infections ENDOCRINE: Absent: unexplained weight gain, unexplained weight loss, heat intolerance, cold intolerance NEUROLOGIC: Absent: headache, focal weakness or paresthesias, dizziness, unsteady gait, seizure, mental status changes, bladder or bowel incontinence PSYCHIATRIC: Absent: anxiety, depression, suicidal or homicidal ideation, hallucinations. PHYSICAL EXAMINATION Vital Signs - 24 hr 09/08/16 09/08/16 19:40 20:58 Temperature 97.9 F Pulse Rate 94 H Respiratory 18 Rate Blood Pressure 123/88 O2 Sat by Pulse 96 99 Oximetry (%) GENERAL: Awake, alert, and fully oriented, in mild distress due to pain. HEENT: Atraumatic, EOMI, PERRLA, No lymphadenopathy noted, mild JVD, moist membranes LUNGS: mildly diminished breath sounds at bilateral lung bases HEART: Regular rate and rhythm, normal S1 and S2 without murmur, rub or gallop. ABDOMEN: Tender to palpation diffusely, mildly distended, normoactive bowel sounds. No hepatomegaly or splenomegaly. No guarding, no rebound, no masses. MUSCULOSKELETAL: Normal range of motion at all joints. No bony deformities or tenderness. No CVA tenderness. UPPER EXTREMITIES: 2+ pulses, warm, well-perfused. No cyanosis. No clubbing. No peripheral edema. LOWER EXTREMITIES: 2+ pulses, warm, well-perfused. 2+ pitting edema bilateral LE NEUROLOGICAL: Cranial nerves II-XII intact. Normal speech. Normal gait. PSYCHIATRIC: Uncooperative & angry. Flat affect. Unchanged from previous examinations. SKIN: Warm, dry, normal turgor, no rashes or lesions noted, normal capillary refill. Laboratory Results - last 24 hr 09/08/16 09/08/16 20:15 20:15 WBC 6.4 RBC 4.80 Hgb 12.6 Hct 38.9 MCV 81.0 MCHC 32.5 RDW 21.5 H Plt Count 211 MPV 8.6 Neutrophils % 67.2 Lymphocytes % 19.5 Monocytes % 12.7 H Eosinophils % 0.0 Basophils % 0.6 Platelet Estimate Adequate Polychromasia 1+ Hypochromic-Microcytic 2+ Macrocytosis 3+ Sodium 140 Potassium 3.2 L Chloride 103 D Carbon Dioxide 26 Anion Gap 11 BUN 22 H Creatinine 0.9 D Creat Clearance w eGFR > 60 Random Glucose 110 H D Calcium 8.4 L Magnesium 1.8 Total Bilirubin 4.0 H D AST 39 H D ALT 23 Alkaline Phosphatase 148 H Creatine Kinase 264 H D Troponin I 0.12 H B-Natriuretic Peptide 3000.23 H Total Protein 7.2 Albumin 3.1 L Lipase 39 L ASSESSMENT/PLAN: 61 year old female with PMH of chronic abdominal pain (thought to be due to liver cirrhosis/biliary tree strictures s/p lap naomi for acalcalous cholecystitis 05/05), HTN, HLD, DM, CAD s/p [place] 2003, CABG in 2003 s/p stents2, Systolic CHF s/p ICD/Pacemaker, COPD, current smoker, hypothyroid & peripheral neuropathy who presents to ED with abdominal pain. #Atypical Chest pain, r/o ACD -placed in observation -telemetry for continuous cardiac monitoring -troponins 0.12-->0.13, will continue to trend in AM -serial EKG -restarted home meds: Lipitor 20mg PO HS, Plavix 75mg PO daily -cardiology consulted #Acute on chronic CHF exacerbation -Lasix 40mg IV BID started (given 80mg IV in ED) -BNP elevated 3000 -CXR reviewed & ordered f/u for AM -restarted home medications: Lisinopril 10mg PO daily, Spironolactone 50mg PO daily, Toprol 100 mg PO daily -strict I & O -Daily weights #Diabetes -ISS -BGM ACHS -Diabetic diet #Hypothyroidism -restarted home meds: Synthroid 75mcg PO daily #Hypokalemia -repleted in ED with 40mEQ KCl PO -restarted home dose for AM: KCl 20mEQ PO daily -trend in AM Prophylaxis -Heparin -no PPI indicated Dispo: Jelly Filter Tender requested to assist patient with obtaining medications regularly; Palliative care consulted as well Advanced Directives: daughter is healthcare proxy and patient is DNR/DNI Visit type - Emergency Visit Emergency Visit: Yes ED Registration Date: 09/08/16 Care time: The patient presented to the Emergency Department on the above date and was hospitalized for further evaluation of their emergent condition. - New Patient This patient is new to me today: Yes Date on this admission: 09/09/16 - Critical Care Critical Care patient: No
--- NOTE | 2016-09-08 23:08 | PN ---
<Deepika Whatley - Last Filed: 09/08/16 22:56> Teaching Attending Note Name of Resident: Julio Michele <Emperatriz Alonzo - Last Filed: 09/08/16 23:19> Teaching Attending Note ATTENDING PHYSICIAN STATEMENT I saw and evaluated the patient. I reviewed the resident's note and discussed the case with the resident. I agree with the resident's findings and plan as documented. SUBJECTIVE: 61 yo F presents with abdominal pain since 4:30 pm today. Patient describes the pain as sharp and localized to the periumbilical region. Patient also reports associated SOB and notes she cant walk further than 1 block. Patient states she is noncompliant with her home medications because she cant afford them. She notes her last echo was 1 month ago. Patient denies nausea, vomiting , diarrhea and constipation. PMHx: HTN, HLD, DM, CAD s/p defibrillator/pacemaker s/p CABG, [place], CHF, hypothyroidism, kidney stones and peripheral neuropathy Social: Current everyday smoker (3 cigarettes per day). Denies alcohol or drug use. Surgical Hx: PEG tube placement, Stent placement x 2, CABG (2003), ICD/ Pacemaker (11/2014), Cholecystectomy (04/2016). Advanced Directives: daughter is healthcare proxy and patient is DNR/DNI Gas Main And Line Fitter: Dr. Cage OBJECTIVE: Last Vital Signs Temp Pulse Resp BP Pulse Ox 97.9 F 94 H 18 123/88 99 09/08/16 19:40 09/08/16 19:40 09/08/16 19:40 09/08/16 19:40 09/08/16 20:58 GENERAL: Awake, alert, and fully oriented, in no acute distress. Poor dentition. Agitated combative personality. HEENT: Atraumatic. PERRLA, EOMI. Moist mucosa. + JVD LUNGS: No distress, speaks full sentences, clear to auscultation bilaterally HEART: Regular rate and rhythm, normal S1 and S2, no murmurs, rubs or gallops, peripheral pulses normal and equal bilaterally. ABDOMEN: Obese, nontender, no ascites. Ventral hernia, normoactive bowel sounds. No guarding, no rebound. No masses. Podorange skin in lower abdominal quadrants EXTREMITIES: Bilateral 2+ pitting edema in LE. LE tender to palpation. NEUROLOGICAL: Cranial nerves II through XII grossly intact. Normal speech, no focal sensorimotor deficits SKIN: Warm, Dry, normal turgor, no rashes or lesions noted. CBCD WBC 6.4 K/mm3 (4.0-10.0) 09/08/16 20:15 RBC 4.80 M/mm3 (3.60-5.2) 09/08/16 20:15 Hgb 12.6 GM/dL (10.7-15.3) 09/08/16 20:15 Hct 38.9 % (32.4-45.2) 09/08/16 20:15 MCV 81.0 fl (80-96) 09/08/16 20:15 MCHC 32.5 g/dl (32.0-36.0) 09/08/16 20:15 RDW 21.5 % (11.6-15.6) H 09/08/16 20:15 Plt Count 211 K/MM3 (134-434) 09/08/16 20:15 MPV 8.6 fl (7.5-11.1) 09/08/16 20:15 CMP Sodium 140 mmol/L (136-145) 09/08/16 20:15 Potassium 3.2 mmol/L (3.5-5.1) L 09/08/16 20:15 Chloride 103 mmol/L (98-107) D 09/08/16 20:15 Carbon Dioxide 26 mmol/L (21-32) 09/08/16 20:15 Anion Gap 11 (8-16) 09/08/16 20:15 BUN 22 mg/dL (7-18) H 09/08/16 20:15 Creatinine 0.9 mg/dL (0.55-1.02) D 09/08/16 20:15 Creat Clearance w eGFR > 60 (>60) 09/08/16 20:15 Calcium 8.4 mg/dL (8.5-10.1) L 09/08/16 20:15 Total Bilirubin 4.0 mg/dL (0.2-1.0) H D 09/08/16 20:15 AST 39 U/L (15-37) H D 09/08/16 20:15 ALT 23 U/L (12-78) 09/08/16 20:15 Alkaline Phosphatase 148 U/L (45-117) H 09/08/16 20:15 Total Protein 7.2 g/dl (6.4-8.2) 09/08/16 20:15 Albumin 3.1 g/dl (3.4-5.0) L 09/08/16 20:15 ASSESSMENT AND PLAN: CHF -Spirolacton. -Social work -Continue home meds Documentation is prepared by Emperatriz Alonzo acting as medical office manager for Deepika Whatley M.D.
[2016-09-09] MEDS ORDERED: CLOPIDOGREL BISULFATE 75 MG TABLET (FP) ONE (00:07)
[2016-09-09 03:01] VITALS: BMI 30.7
[2016-09-09] MEDS ORDERED: FUROSEMIDE 40 MG/4 ML INJECTABLE VIAL IVPB SCH ×2 (06:00→12:24)
[2016-09-09] MEDS: INSULIN SLIDING SCALE (NOVOLOG) 1 VIAL SQ SCH ×4 (06:23→21:00)
[2016-09-09 07:39] LABS: MCH 26.5 pg (25.7-33.7); MCHC 32.7 g/dl (32.0-36.0); MEAN CELL VOLUME 81.1 fl (80-96); MEAN PLT VOLUME 8.6 fl (7.5-11.1); PLATELET COUNT 172 K/MM3 (134-434); RDW 21.7 % (11.6-15.6); WHITE BLOOD COUNT 6.2 K/mm3 (4.0-10.0)
--- NOTE | 2016-09-09 08:02 | PN ---
Progress Note, Physician Chief Complaint: Coverage for Fauzia: Patient is a poor historian and answers in one word responses. The PMH is obtained primarily through chart review as follows: Patient is a 61 year old female, with a significant past medical history of hypertension, hypercholesterolemia, CAD, [place](X2, s/pp defibrillator/pacemaker and CABG), CHF, DM, kidney stones and peripheral neuropathy, and hypothyroidism presents to ER with increased LE edema, diffuse abdominal pain and atypical chest pain . Denies Nauses, vomiting or diarrhea. No fever or chills. Denies syncope or ICD discharges. She states that her belly was "crampy" and this radiated to her chest for several seconds and she came to ER for evaluation. In the ER, her BNP was elevated and it was felt she was mildly volume overloaded ; her weight is up from last admission and she was triaged to telemetry for IV diuresis. - Past Medical History PATENT CHEMIST: Yes: Peripheral Neuropathy Cardio/Vascular: Yes: CAD (CABG 2003, stents x2, now with defibrillator), CHF, HTN, Hyperlipdemia, [place] Pulmonary: Yes: COPD Gastrointestinal: Yes: Other (Chronic abdominal pain and food intolerances. Had PEG placed 11/03 after suffering vocal cord damage ( EMS intubation). PEG was subsequently removed. ) Hepatobiliary: Yes: Cholecystitis Renal/: Yes: Renal Calculi ...: No Psych: Yes: Depression Musculoskeletal: Yes: Chronic low back pain Endocrine: Yes: Hypothyroidism - Past Surgical History Past Surgical History: Yes: AICD, CABG, Cholecystectomy, Colonoscopy, Joint Replacement (right THR), Stent (X2) - Alcohol/Substance Use Hx Alcohol Use: No History of Substance Use: reports: None - Smoking History Smoking history: Current every day smoker Have you smoked in the past 12 months: Yes Aproximately how many cigarettes per day: 5 History of Present Illness: See above Patient has multiple admissions this year for acute on chronic combined systolic and diastolic CHF. I have covered her on several weekends for Dr. Cage - Current Medication List Current Medications: Active Medications Acetaminophen (Tylenol -) 650 mg PO Q4H PRN PRN Reason: FEVER OR PAIN Atorvastatin Calcium (Lipitor -) 20 mg PO HS [facility] Clopidogrel Bisulfate (Plavix -) 75 mg PO DAILY [facility] Furosemide (Lasix Injection -) 40 mg IVPB BID@0600,1400 [facility] Last Admin: 09/09/16 06:23 Dose: 40 mg Heparin Sodium (Porcine) (Heparin -) 5,000 unit SQ BID [facility] Insulin Aspart (Novolog Vial Sliding Scale -) 0 vial SQ ACHS [facility] PRN Reason: Protocol Last Admin: 09/09/16 06:23 Dose: Not Given Levothyroxine Sodium (Synthroid -) 75 mcg PO DAILY [facility] Lisinopril (Prinivil) 10 mg PO DAILY [facility] Metoprolol Succinate (Toprol Xl -) 100 mg PO DAILY [facility] Potassium Chloride (K-Dur -) 20 meq PO DAILY [facility] Spironolactone (Aldactone -) 50 mg PO DAILY [facility] - Objective Vital Signs: Vital Signs Temperature 97.7 F 09/09/16 06:00 Pulse Rate 84 09/09/16 06:00 Respiratory Rate 18 09/09/16 06:00 Blood Pressure 120/77 09/09/16 00:15 O2 Sat by Pulse Oximetry (%) 92 L 09/09/16 00:30 Constitutional: Yes: Calm (sleeping comfortably) Eyes: Yes: Conjunctiva Clear Cardiovascular: Yes: Regular Rate and Rhythm Respiratory: Yes: CTA Bilaterally Gastrointestinal: Yes: Soft (mild diffuse tenderness, no rebound or guarding), Abdomen, Obese Edema: Yes Edema: LLE: 1+, RLE: 1+ Peripheral Pulses WNL: Yes Neurological: Yes: Alert ...Motor Strength: WNL Labs: CBC, BMP 09/09/16 06:45 Laboratory Tests 09/08/16 09/09/16 09/09/16 20:15 01:26 06:45 WBC 6.2 RBC 4.44 Plt Count 172 Sodium 140 Potassium 3.2 L BUN 22 H Creatinine 0.9 D AST 39 H D ALT 23 Creatine Kinase 264 H D Troponin I 0.12 H 0.13 H B-Natriuretic Peptide 3000.23 H - ....Imaging Chest X-ray: Report Reviewed EKG: Image Reviewed (NSR, poor R wave progression, NSST changes TELE: NSR with PVCs and multiple episodes NSVT 3 beats) Assessment/Plan IMP: Ischemic CM s/p ICD with acute on chronic systolic CHF NSVT Abdominal pain of unclear etiology REC: 1. Acute on chronic systolic CHF: -Severe LV dysfx s/p ICD -Continue tele -IV Lasix -Daily weights -Suspect low level TnI elevation is due to decompensated CHF and her baseline is always mildly above zero -Dietary counselling -Cont JANICE-I -To consider Entresto in future, should be started as outpatient -Continue Aldactone 2. NSVT: -due to chronic cardiomyopathy -Has ICD -Keep K and Mg repleted -Continue Toprol -S/p ICD 3. Abdominal pain: -?passive congestion? -Continue diuresis -Further w/u as per medical team Ryan Cage
[2016-09-09 08:05] LABS: CALCIUM 8.6 mg/dL (8.5-10.1); COCKROFT - GAULT 79.3475; CREATININE 0.9 mg/dL (0.55-1.02)
--- NOTE | 2016-09-09 09:58 | EKG ---
Test Reason : Blood Pressure : / mmHG Vent. Rate : 092 BPM Atrial Rate : 092 BPM P-R Int : 174 ms QRS Dur : 126 ms QT Int : 390 ms P-R-T Axes : 079 102 -05 degrees QTc Int : 482 ms SINUS RHYTHM WITH OCCASIONAL PREMATURE VENTRICULAR COMPLEXES RIGHTWARD AXIS NON-SPECIFIC INTRA-VENTRICULAR CONDUCTION BLOCK CANNOT RULE OUT ANTERIOR INFARCT (CITED ON OR BEFORE 30-JUN-2015) ABNORMAL ECG WHEN COMPARED WITH ECG OF 08-SEP-2016 19:42, PREMATURE VENTRICULAR COMPLEXES ARE NOW PRESENT Confirmed by SUDEEP BURTON MD ([id number]) on 09/09/2016 9:57:41 AM Referred By: Confirmed By:SUDEEP BURTON MD
[2016-09-09] MEDS: METOPROLOL SUCCINATE 100 MG TAB.SR.24H (FP) PO SCH (09:59)
[2016-09-09] MEDS: POTASSIUM CHLORIDE TABS 20 MEQ TABLET.ER (FP) PO SCH (09:59)
[2016-09-09] MEDS: LEVOTHYROXINE NA 75 MCG TABLET (FP) PO SCH (09:59)
[2016-09-09] MEDS: SPIRONOLACTONE 25 MG TABLET (FP) PO SCH (09:59)
[2016-09-09] MEDS: LISINOPRIL 10 MG TABLET (FP) PO SCH (09:59)
[2016-09-09] MEDS: CLOPIDOGREL BISULFATE 75 MG TABLET (FP) PO SCH (10:00)
[2016-09-09] MEDS: HEPARIN NA (PORCINE) 5,000 UNITS/ML 1ML VIAL SQ SCH ×2 (10:08→22:42)
[2016-09-09] MEDS ORDERED: POTASSIUM CHLORIDE TABS 20 MEQ TABLET.ER (FP) PO ONE (12:30)
--- NOTE | 2016-09-09 12:40 | PN ---
Progress Note (short form) - Note Progress Note: Subjective: no fever or chills, has abd pain, was not takingher spironolactone ( never picked it up from pharmacy ) , not taking plavix , adn taking 40 of lasix daily instead of 80 BID . has her chronic abd pain, and has SOB Objective: Vital Signs: Last Vital Signs Temp Pulse Resp BP Pulse Ox 97.9 F 91 H 18 120/83 92 L 09/09/16 10:00 09/09/16 10:00 09/09/16 10:00 09/09/16 10:00 09/09/16 10:00 I&O: Intake & Output 09/06/16 09/07/16 09/08/16 09/09/16 23:59 23:59 23:59 23:59 Weight 185 lb 173 lb 3.2 oz Laboratory Results - last 24 hr 09/08/16 09/08/16 09/09/16 20:15 20:15 01:26 WBC 6.4 RBC 4.80 Hgb 12.6 Hct 38.9 MCV 81.0 MCHC 32.5 RDW 21.5 H Plt Count 211 MPV 8.6 Neutrophils % 67.2 Lymphocytes % 19.5 Monocytes % 12.7 H Eosinophils % 0.0 Basophils % 0.6 Platelet Estimate Adequate Polychromasia 1+ Hypochromic-Microcytic 2+ Macrocytosis 3+ Sodium 140 Potassium 3.2 L Chloride 103 D Carbon Dioxide 26 Anion Gap 11 BUN 22 H Creatinine 0.9 D Creat Clearance w eGFR > 60 POC Glucometer Random Glucose 110 H D Calcium 8.4 L Magnesium 1.8 Total Bilirubin 4.0 H D AST 39 H D ALT 23 Alkaline Phosphatase 148 H Creatine Kinase 264 H D Troponin I 0.12 H 0.13 H B-Natriuretic Peptide 3000.23 H Total Protein 7.2 Albumin 3.1 L Lipase 39 L 09/09/16 09/09/16 09/09/16 06:19 06:45 06:45 WBC 6.2 RBC 4.44 Hgb 11.8 Hct 36.1 MCV 81.1 MCHC 32.7 RDW 21.7 H Plt Count 172 MPV 8.6 Neutrophils % Lymphocytes % Monocytes % Eosinophils % Basophils % Platelet Estimate Polychromasia Hypochromic-Microcytic Macrocytosis Sodium 142 Potassium 3.4 L Chloride 101 Carbon Dioxide 31 Anion Gap 10 BUN 21 H Creatinine 0.9 Creat Clearance w eGFR POC Glucometer 71 Random Glucose 70 L D Calcium 8.6 Magnesium Total Bilirubin AST ALT Alkaline Phosphatase Creatine Kinase Troponin I B-Natriuretic Peptide Total Protein Albumin Lipase 09/09/16 11:57 WBC RBC Hgb Hct MCV MCHC RDW Plt Count MPV Neutrophils % Lymphocytes % Monocytes % Eosinophils % Basophils % Platelet Estimate Polychromasia Hypochromic-Microcytic Macrocytosis Sodium Potassium Chloride Carbon Dioxide Anion Gap BUN Creatinine Creat Clearance w eGFR POC Glucometer 101 Random Glucose Calcium Magnesium Total Bilirubin AST ALT Alkaline Phosphatase Creatine Kinase Troponin I B-Natriuretic Peptide Total Protein Albumin Lipase Physical Exam: NAD , flat affect. CV: RRR, 2/6 SM at LUSB Lungs: clear lungs, good air entry . Ext: edema , will not allow touching the legs Abd ; Abd , TTP in all quadrants even to light touch , has abd wall edema ( 2+ ) ASSESSMENT AND PLAN: 61 year old female, with a significant past medical history of hypertension, hypercholesterolemia, CAD, [place](X2) , S CHF s/p AICD , s/p CABG, DM II, kidney stones and peripheral neuropathy, and hypothyroidism, admitted for ABd pain . 1- Acute on chronic systolic CHF: now with increased abd wall edema , and LOwer ext edema , worsening LFTS and with weight gain ( 157 lb on dc , now 173lb ) - increase lasix to 60 IV BID ( responded to higher doses of lasix in past admissions ) - cont lisinopril 10 , and toprol 100 - cont aldactone - monitor blood pressure as it had dropped in past with diuresis - NSVT on teele . monitor electrolytes . has AICD 2- Abd pain : chronic . now worse with Acute CHF - monitor on diuresis 3- LFTS abnormalities. chronic due to hepatic congestion and possible cirrhosis , now slightly worse . - monitor with diuresis 4- Chronic trop leak, at base line cont BB cont statins , monitor liver function 5- Hypokalemia : replete with daily Kcl and give extra dose today HLOC DNR/DNI , code was d/w her , she is capable of making decisions Visit type - Emergency Visit Emergency Visit: Yes ED Registration Date: 09/08/16 Care time: The patient presented to the Emergency Department on the above date and was hospitalized for further evaluation of their emergent condition. - New Patient This patient is new to me today: Yes Date on this admission: 09/09/16 - Critical Care Critical Care patient: No
[2016-09-09] MEDS: FUROSEMIDE 40 MG/4 ML INJECTABLE VIAL IVPB SCH (14:04)
[2016-09-09] MEDS: ATORVASTATIN CA 20 MG TABLET (FP) PO SCH (22:39)
[2016-09-10 02:14] LABS: TROPONIN I 0.13 ng/ml (0.00-0.05)
[2016-09-10] MEDS: FUROSEMIDE 40 MG/4 ML INJECTABLE VIAL IVPB SCH ×3 (06:49→15:07)
[2016-09-10] MEDS: INSULIN SLIDING SCALE (NOVOLOG) 1 VIAL SQ SCH ×4 (06:53→22:41)
--- NOTE | 2016-09-10 08:53 | PN ---
Progress Note, Physician Chief Complaint: sitting up, no distress TELE: NSR with PVCs - Current Medication List Current Medications: Active Medications Acetaminophen (Tylenol -) 650 mg PO Q4H PRN PRN Reason: FEVER OR PAIN Atorvastatin Calcium (Lipitor -) 20 mg PO HS [facility] Last Admin: 09/09/16 22:39 Dose: 20 mg Clopidogrel Bisulfate (Plavix -) 75 mg PO DAILY [facility] Last Admin: 09/09/16 10:00 Dose: 75 mg Furosemide (Lasix Injection -) 60 mg IVPB BID@0600,1400 [facility] Last Admin: 09/10/16 06:49 Dose: Not Given Heparin Sodium (Porcine) (Heparin -) 5,000 unit SQ BID [facility] Last Admin: 09/09/16 22:42 Dose: Not Given Insulin Aspart (Novolog Vial Sliding Scale -) 0 vial SQ ACHS [facility] PRN Reason: Protocol Last Admin: 09/10/16 06:53 Dose: Not Given Levothyroxine Sodium (Synthroid -) 75 mcg PO DAILY [facility] Last Admin: 09/09/16 09:59 Dose: 75 mcg Lisinopril (Prinivil) 10 mg PO DAILY [facility] Last Admin: 09/09/16 09:59 Dose: 10 mg Metoprolol Succinate (Toprol Xl -) 100 mg PO DAILY [facility] Last Admin: 09/09/16 09:59 Dose: 100 mg Potassium Chloride (K-Dur -) 20 meq PO DAILY [facility] Last Admin: 09/09/16 09:59 Dose: 20 meq Spironolactone (Aldactone -) 50 mg PO DAILY [facility] Last Admin: 09/09/16 09:59 Dose: 50 mg - Objective Vital Signs: Vital Signs Temperature 97.6 F 09/10/16 06:00 Pulse Rate 65 09/10/16 06:00 Respiratory Rate 20 09/10/16 06:00 Blood Pressure 92/57 09/10/16 06:00 O2 Sat by Pulse Oximetry (%) 94 L 09/09/16 22:00 Constitutional: Yes: No Distress Cardiovascular: Yes: Regular Rate and Rhythm Respiratory: Yes: CTA Bilaterally Gastrointestinal: Yes: Soft Edema: Yes Edema: LLE: 2+, RLE: 2+ Neurological: Yes: Alert Labs: CBC, BMP 09/09/16 06:45 09/09/16 06:45 Laboratory Tests 09/09/16 09/09/16 01:26 06:45 Troponin I 0.13 H 0.13 H - ....Imaging EKG: Image Reviewed Assessment/Plan IMP: Ischemic CM s/p ICD with acute on chronic systolic CHF NSVT Abdominal pain of unclear etiology REC: 1. Acute on chronic systolic CHF: -Severe LV dysfx s/p ICD -Continue tele -IV Lasix, would lower dose to 40mg IV BID as BP is running low. -Suspect low level TnI elevation is due to decompensated CHF and her baseline is always mildly above zero -Dietary counselling -Cont JANICE-I -To consider Entresto in future, should be started as outpatient -Continue Aldactone 2. NSVT: -due to chronic cardiomyopathy -Has ICD -Keep K and Mg repleted -Continue Toprol -S/p ICD 3. Abdominal pain: now largely resolved -?passive congestion? -Continue diuresis -Further w/u as per medical team Ryan Cage
[2016-09-10] MEDS: POTASSIUM CHLORIDE TABS 20 MEQ TABLET.ER (FP) PO SCH (10:13)
[2016-09-10] MEDS: CLOPIDOGREL BISULFATE 75 MG TABLET (FP) PO SCH (10:13)
[2016-09-10] MEDS: LEVOTHYROXINE NA 75 MCG TABLET (FP) PO SCH (10:13)
[2016-09-10] MEDS: SPIRONOLACTONE 25 MG TABLET (FP) PO SCH (10:13)
[2016-09-10] MEDS: METOPROLOL SUCCINATE 100 MG TAB.SR.24H (FP) PO SCH (10:13)
[2016-09-10] MEDS: LISINOPRIL 10 MG TABLET (FP) PO SCH (10:14)
[2016-09-10] MEDS: HEPARIN NA (PORCINE) 5,000 UNITS/ML 1ML VIAL SQ SCH ×2 (10:14→22:41)
--- NOTE | 2016-09-10 12:29 | EKG ---
Test Reason : Blood Pressure : / mmHG Vent. Rate : 071 BPM Atrial Rate : 071 BPM P-R Int : 196 ms QRS Dur : 124 ms QT Int : 456 ms P-R-T Axes : 028 104 099 degrees QTc Int : 495 ms SINUS RHYTHM WITH PREMATURE ATRIAL COMPLEXES NON-SPECIFIC INTRA-VENTRICULAR CONDUCTION DELAY RIGHTWARD AXIS SEPTAL INFARCT (CITED ON OR BEFORE 30-JUN-2015) ABNORMAL ECG WHEN COMPARED WITH ECG OF 08-SEP-2016 21:23, PREMATURE VENTRICULAR COMPLEXES ARE NO LONGER PRESENT PREMATURE ATRIAL COMPLEXES ARE NOW PRESENT Confirmed by SUDEEP BURTON MD ([id number]) on 09/10/2016 12:28:50 PM Referred By: Elpidio TYSON Confirmed By:SUDEEP BURTON MD
[2016-09-10] MEDS ORDERED: METOPROLOL SUCCINATE 50 MG TAB.SR.24H (FP) PO SCH (13:44)
[2016-09-10] MEDS ORDERED: LISINOPRIL 5 MG TABLET (FP) PO SCH (13:48)
--- NOTE | 2016-09-10 13:59 | PN ---
Progress Note (short form) - Note Progress Note: Subjective: cont to have abd pain. has SOB . has no MOREAU , or palpitations . Objective: Vital Signs: Last Vital Signs Temp Pulse Resp BP Pulse Ox 98.7 F 64 20 84/61 94 L 09/10/16 10:00 09/10/16 10:00 09/10/16 13:38 09/10/16 10:00 09/09/16 22:00 I&O: Laboratory Results - last 24 hr 09/08/16 09/09/16 09/09/16 20:15 06:45 16:39 POC Glucometer 116 CK-MB (CK-2) 8.068 H Troponin I 0.13 H 09/10/16 06:52 POC Glucometer 66 CK-MB (CK-2) Troponin I Physical Exam: NAD , flat affect. CV: RRR, 2/6 SM at LUSB Lungs: clear lungs, good air entry . Ext: edema , will not allow touching the legs Abd ; Abd , TTP in all quadrants even to light touch , has abd wall edema ( 2+ ) ASSESSMENT AND PLAN: 61 year old female, with a significant past medical history of hypertension, hypercholesterolemia, CAD, [place](X2) , S CHF s/p AICD , s/p CABG, DM II, kidney stones and peripheral neuropathy, and hypothyroidism, admitted for ABd pain . 1- Acute on chronic systolic CHF: - will decrease lasix dose today to 40 BID , due to hypotension. - decrease lisinopril to 5 and toprol to 75 to give room for diuresis . I feel she is not taking those meds at home, so she gets hypotensive each time we put her on them - cont aldactone - if Blood pressure improves, will increase lasix dose again 2- Abd pain: chronic . worse with heart failure - monitor on diuresis 3- LFTS abnormalities. Chronic due to hepatic congestion and possible cirrhosis. - monitor with diuresis 4- Chronic trop leak, at base line cont BB cont statins , monitor liver function 5- Hypokalemia : replete with daily Kcl HLOC DNR/DNI Visit type - Emergency Visit Emergency Visit: Yes ED Registration Date: 09/08/16 Care time: The patient presented to the Emergency Department on the above date and was hospitalized for further evaluation of their emergent condition. - New Patient This patient is new to me today: No - Critical Care Critical Care patient: No
[2016-09-10] MEDS: ATORVASTATIN CA 20 MG TABLET (FP) PO SCH (22:39)
[2016-09-11] MEDS: INSULIN SLIDING SCALE (NOVOLOG) 1 VIAL SQ SCH ×4 (06:14→22:14)
[2016-09-11] MEDS: FUROSEMIDE 40 MG/4 ML INJECTABLE VIAL IVPB SCH ×2 (06:20→15:00)
[2016-09-11] MEDS: HEPARIN NA (PORCINE) 5,000 UNITS/ML 1ML VIAL SQ SCH ×2 (10:00→22:14)
[2016-09-11] MEDS ORDERED: FUROSEMIDE 40 MG/4 ML INJECTABLE VIAL IVPB SCH (10:09)
[2016-09-11] MEDS ORDERED: FUROSEMIDE 40 MG/4 ML INJECTABLE VIAL IVPUSH ONE (10:30)
[2016-09-11] MEDS: POTASSIUM CHLORIDE TABS 20 MEQ TABLET.ER (FP) PO SCH (11:51)
[2016-09-11] MEDS: LEVOTHYROXINE NA 75 MCG TABLET (FP) PO SCH (11:51)
[2016-09-11] MEDS: SPIRONOLACTONE 25 MG TABLET (FP) PO SCH (11:51)
[2016-09-11] MEDS: CLOPIDOGREL BISULFATE 75 MG TABLET (FP) PO SCH (11:53)
--- NOTE | 2016-09-11 12:17 | EKG ---
Test Reason : Blood Pressure : / mmHG Vent. Rate : 094 BPM Atrial Rate : 094 BPM P-R Int : 178 ms QRS Dur : 124 ms QT Int : 404 ms P-R-T Axes : 080 104 054 degrees QTc Int : 505 ms NORMAL SINUS RHYTHM CANNOT RULE OUT ANTEROSEPTAL INFARCT (CITED ON OR BEFORE 30-JUN-2015) ABNORMAL ECG WHEN COMPARED WITH ECG OF 22-AUG-2016 09:49, PREMATURE VENTRICULAR COMPLEXES ARE NO LONGER PRESENT T WAVE VARIATION Confirmed by MICH ARVIZU MD ([id number]) on 09/11/2016 12:16:53 PM Referred By: Confirmed By:MICH ARVIZU MD
--- NOTE | 2016-09-11 14:04 | PN ---
Teaching Attending Note Name of Resident: Cristofer Mckeon ATTENDING PHYSICIAN STATEMENT I saw and evaluated the patient. I reviewed the resident's note and discussed the case with the resident. I agree with the resident's findings and plan as documented. SUBJECTIVE: cont to have SOB and Abd pain. was not given her Lasix this am due to hypotension OBJECTIVE: NAD , flat affect. CV: RRR, 2/6 SM at LUSB Lungs: clear lungs, good air entry . Ext: edema , will not allow touching the legs ASSESSMENT AND PLAN: 61 year old female, with a significant past medical history of hypertension, hypercholesterolemia, CAD, [place](X2) , S CHF s/p AICD , s/p CABG, DM II, kidney stones and peripheral neuropathy, and hypothyroidism, admitted for ABd pain . 1- Acute on chronic systolic CHF: -Increase lasix to 60 BID - cont aldactone - weight has increased as she was not given her lasix all day yesterday due to hypotension - cont decreased toprol dose ( 75 ) and lisinopril ( 5 ) to give more room for diuresis 2- Abd pain: chronic . worse with heart failure - monitor on diuresis 3- LFTS abnormalities. Chronic due to hepatic congestion and possible cirrhosis. - monitor with diuresis periodically 4- Chronic trop leak, at base line cont BB cont statins , monitor liver function periodically 5- Hypokalemia : replete with daily Kcl HLOC DNR/DNI
--- NOTE | 2016-09-11 14:43 | PN ---
Physical Exam: SUBJECTIVE: Patient seen and examined at bedside very rude to staff choosing which medications she wants to take very short in her responses OBJECTIVE: Vital Signs Period Temp Pulse Resp BP Sys/Santoro Pulse Ox Last 24 Hr 97.9 F 57-72 18-20 94-100/58-69 98 GENERAL: The patient is awake and alert EYES: PERRL ENT: moist mucous membranes. NECK: supple. LUNGS: CTAB HEART: Regular rate and rhythm ABDOMEN: Soft, tender to palpation EXTREMITIES: 1+ pitting edema up to umbilicus with erythema of bilateral lower extremities. lower extremities are tender to palpation. 1+ pitting edema. NEUROLOGICAL: Cranial nerves II through XII grossly intact Laboratory Results - last 24 hr 09/10/16 16:50 POC Glucometer 122 Active Medications Generic Name Dose Route Start Last Admin Trade Name Freq PRN Reason Stop Dose Admin Acetaminophen 650 mg 09/08/16 22:27 Tylenol - PO Q4H PRN FEVER OR PAIN Atorvastatin Calcium 20 mg 09/09/16 22:00 09/10/16 22:39 Lipitor - PO 20 mg HS RINA Administration Clopidogrel Bisulfate 75 mg 09/09/16 10:00 09/11/16 11:53 Plavix - PO 75 mg DAILY RINA Administration Furosemide 60 mg 09/11/16 14:00 Lasix Injection - IVPB BID@0600,1400 [facility] Heparin Sodium (Porcine) 5,000 unit 09/09/16 10:00 09/11/16 10:00 Heparin - SQ Not Given BID [facility] Insulin Aspart 0 vial 09/09/16 07:00 09/11/16 14:25 Novolog Vial Sliding Scale - SQ Not Given ACHS [facility] Protocol Levothyroxine Sodium 75 mcg 09/09/16 10:00 09/11/16 11:51 Synthroid - PO 75 mcg DAILY RINA Administration Lisinopril 5 mg 09/11/16 14:07 Prinivil PO DAILY [facility] Metoprolol Succinate 75 mg 09/11/16 14:07 Toprol Xl - PO DAILY [facility] Potassium Chloride 20 meq 09/09/16 10:00 09/11/16 11:51 K-Dur - PO 20 meq DAILY RINA Administration Spironolactone 50 mg 09/09/16 10:00 09/11/16 11:51 Aldactone - PO 50 mg DAILY RINA Administration ASSESSMENT/PLAN: 61F systolic CHF, HTN, HLD, hypothyroidism, s/p pacemaker/defibrillator, admitted for abdominal pain. Acute on chronic systolic CHF exacerbation. patient non compliant with medications at home patient has gained about 2 pounds because she was not getting the lasix Increase lasix to 60mg IV BID continue aldactone 50mg po daily cardiology consult appreciated one liter fluid restriction continue trend daily weights pain control Transaminitis/Abdominal pain-elevated LFTs significantly improved. as she is diuresed the LFTs are improving which likely means she has hepatic congestion from CHF likely secondary to hepatic congestion from CHF. states she saw dr. lugo at [facility] who is a [employer] developer and he did lab work and told her she was fine. LFTs significantly improved T. Bili trending down today AST/ALT WNL Alk Phos stable will continue to trend CAD/HLD - atorvastatin 20 mg po qhs continue plavix 75mg po daily HTN Well controlled at this time Continue metoprolol XL 75mg po daily lisinopril 5mg po daily Hypothyroidism continue 75mcg synthroid qam DM -not on meds at home ISS outpt follow up troponinemia: always slightly elevated at baseline FEN: fluid restriction hypokalemia-give potassium 20meq po daily sodium restricted diet PPx: HSQ no GI ppx needed patient is ambulating Visit type - Emergency Visit Emergency Visit: Yes ED Registration Date: 09/10/16 Care time: The patient presented to the Emergency Department on the above date and was hospitalized for further evaluation of their emergent condition. - New Patient This patient is new to me today: Yes Date on this admission: 09/11/16 - Critical Care Critical Care patient: No - Discharge Referral Referred to [facility] Med P.C.: No
[2016-09-11] MEDS ORDERED: INSULIN (NOVOLOG) ASPART 100 UNITS/ML 10ML VIAL ONE (21:59)
[2016-09-11] MEDS: ATORVASTATIN CA 20 MG TABLET (FP) PO SCH (22:14)
[2016-09-12] MEDS: INSULIN SLIDING SCALE (NOVOLOG) 1 VIAL SQ SCH (07:06)
[2016-09-12] MEDS ORDERED: TORSEMIDE 20 MG TABLET (FP) PO SCH (10:00)
[2016-09-12] MEDS: METOPROLOL SUCCINATE 50 MG TAB.SR.24H (FP) PO SCH (11:42)
[2016-09-12] MEDS: POTASSIUM CHLORIDE TABS 20 MEQ TABLET.ER (FP) PO SCH (11:43)
[2016-09-12] MEDS: CLOPIDOGREL BISULFATE 75 MG TABLET (FP) PO SCH (11:44)
[2016-09-12] MEDS: LEVOTHYROXINE NA 75 MCG TABLET (FP) PO SCH (11:44)
[2016-09-12] MEDS: LISINOPRIL 5 MG TABLET (FP) PO SCH (11:44)
[2016-09-12] MEDS: SPIRONOLACTONE 25 MG TABLET (FP) PO SCH (11:44)
[2016-09-12] MEDS: HEPARIN NA (PORCINE) 5,000 UNITS/ML 1ML VIAL SQ SCH ×2 (11:45→21:35)
[2016-09-12] MEDS: FUROSEMIDE 40 MG/4 ML INJECTABLE VIAL IVPB SCH (11:46)
--- NOTE | 2016-09-12 12:58 | PN ---
Teaching Attending Note Name of Resident: Cristofer Mckeon ATTENDING PHYSICIAN STATEMENT I saw and evaluated the patient. I reviewed the resident's note and discussed the case with the resident. I agree with the resident's findings and plan as documented. SUBJECTIVE: no fever or chills, feels SOB. OBJECTIVE: NAD , flat affect. CV: RRR, 2/6 SM at LUSB Lungs: clear lungs, good air entry . Ext: edema at least 2+. with erythema and tenderness on both legs . edema noww up to the thighs ASSESSMENT AND PLAN: 61 year old female, with a significant past medical history of hypertension, hypercholesterolemia, CAD, [place](X2) , S CHF s/p AICD , s/p CABG, DM II, kidney stones and peripheral neuropathy, and hypothyroidism, admitted for ABd pain . 1- Acute on chronic systolic CHF: -lost her IV again. weight again increased - gave a dose of torsemide this am - will place a new IV line and start lasix gtt which helped a lot in past . - cont aldactone - monitor electrolytes and renal function on lasix gtt 2- Abd pain: chronic . worse with heart failure - monitor on diuresis 3- LFTS abnormalities. Chronic due to hepatic congestion and possible cirrhosis. - monitor with diuresis periodically 4- Chronic trop leak, at base line cont BB cont statins , monitor liver function periodically 5- Hypokalemia : replete with daily Kcl HLOC DNR/DNI
--- NOTE | 2016-09-12 13:05 | PN ---
Physical Exam: SUBJECTIVE: Patient seen and examined OBJECTIVE: Vital Signs Period Temp Pulse Resp BP Sys/Santoro Pulse Ox Last 24 Hr 97.3 F-97.6 F 66-71 18-18 107-114/60-78 98-98 GENERAL: The patient is awake and alert EYES: PERRL ENT: moist mucous membranes. NECK: supple. LUNGS: CTAB HEART: Regular rate and rhythm ABDOMEN: Soft, tender to palpation infraumbilically. edema of abdomen EXTREMITIES: 2+ pitting edema up to thighs with erythema of bilateral lower extremities. lower extremities are tender to palpation. NEUROLOGICAL: Cranial nerves II through XII grossly intact Laboratory Results - last 24 hr 09/11/16 09/11/16 09/12/16 17:35 22:12 06:58 POC Glucometer 132 97 78 Active Medications Generic Name Dose Route Start Last Admin Trade Name Freq PRN Reason Stop Dose Admin Acetaminophen 650 mg 09/08/16 22:27 Tylenol - PO Q4H PRN FEVER OR PAIN Atorvastatin Calcium 20 mg 09/09/16 22:00 09/11/16 22:14 Lipitor - PO 20 mg HS RINA Administration Clopidogrel Bisulfate 75 mg 09/09/16 10:00 09/12/16 11:44 Plavix - PO 75 mg DAILY RINA Administration Heparin Sodium (Porcine) 5,000 unit 09/09/16 10:00 09/12/16 11:45 Heparin - SQ Not Given BID RINA Furosemide 100 mg/ Sodium 100 mls @ 10 mls/hr 09/12/16 13:15 Chloride IVPB ASDIR RINA Levothyroxine Sodium 75 mcg 09/09/16 10:00 09/12/16 11:44 Synthroid - PO 75 mcg DAILY RINA Administration Lisinopril 5 mg 09/11/16 14:07 09/12/16 11:44 Prinivil PO 5 mg DAILY RINA Administration Metoprolol Succinate 75 mg 09/11/16 14:07 09/12/16 11:42 Toprol Xl - PO 75 mg DAILY RINA Administration Potassium Chloride 20 meq 09/09/16 10:00 09/12/16 11:43 K-Dur - PO 20 meq DAILY RINA Administration Spironolactone 50 mg 09/09/16 10:00 09/12/16 11:44 Aldactone - PO 50 mg DAILY RINA Administration ASSESSMENT/PLAN: 61F systolic CHF, HTN, HLD, hypothyroidism, s/p pacemaker/defibrillator, admitted for abdominal pain. Acute on chronic systolic CHF exacerbation. patient non compliant with medications at home patient has gained about another 2 pounds today because she only got one dose of IV lasix as she pulled out her IV. gave one dose of demedex 60mg po. IV reinserted will start lasix gtt @ 10mg/hr this is what has worked for her in the past continue aldactone 50mg po daily cardiology consult appreciated one liter fluid restriction continue trend daily weights pain control trend lytes as patient is on lasix gtt now and replete PRN Transaminitis/Abdominal pain-she has hepatic congestion from CHF likely secondary to hepatic congestion from CHF. states she saw dr. lugo at [facility] who is a sporting goods sales associate and he did lab work and told her she was fine. CAD/HLD - atorvastatin 20 mg po qhs continue plavix 75mg po daily HTN Well controlled at this time Continue metoprolol XL 75mg po daily lisinopril 5mg po daily Hypothyroidism continue 75mcg synthroid qam DM -not on meds at home ISS outpt follow up troponinemia: always slightly elevated at baseline FEN: fluid restriction hypokalemia-give potassium 20meq po daily sodium restricted diet PPx: HSQ no GI ppx needed patient is ambulating Visit type - Emergency Visit Emergency Visit: Yes ED Registration Date: 09/10/16 Care time: The patient presented to the Emergency Department on the above date and was hospitalized for further evaluation of their emergent condition. - New Patient This patient is new to me today: No - Critical Care Critical Care patient: No - Discharge Referral Referred to [facility] Med P.C.: No
[2016-09-12] MEDS: FUROSEMIDE INJECTION 100 MG in SODIUM CHLORIDE 90 ML IVPB SCH (17:16)
[2016-09-12] MEDS: ATORVASTATIN CA 20 MG TABLET (FP) PO SCH (21:45)
[2016-09-13] MEDS ORDERED: FUROSEMIDE 100 MG/10 ML INJECTABLE VIAL ONE ×2 (02:31→12:36)
[2016-09-13 08:19] LABS: CALCIUM 9.1 mg/dL (8.5-10.1); COCKROFT - GAULT 79.985; CREATININE 0.9 mg/dL (0.55-1.02); MAGNESIUM 1.6 mg/dL (1.8-2.4); PHOSPHOROUS 2.4 mg/dL (2.5-4.9)
[2016-09-13] MEDS: HEPARIN NA (PORCINE) 5,000 UNITS/ML 1ML VIAL SQ SCH ×2 (10:09→21:49)
[2016-09-13] MEDS: LEVOTHYROXINE NA 75 MCG TABLET (FP) PO SCH (10:13)
[2016-09-13] MEDS: POTASSIUM CHLORIDE TABS 20 MEQ TABLET.ER (FP) PO SCH (10:13)
[2016-09-13] MEDS: CLOPIDOGREL BISULFATE 75 MG TABLET (FP) PO SCH (10:13)
[2016-09-13] MEDS: METOPROLOL SUCCINATE 50 MG TAB.SR.24H (FP) PO SCH (10:13)
[2016-09-13] MEDS: LISINOPRIL 5 MG TABLET (FP) PO SCH (10:13)
[2016-09-13] MEDS: SPIRONOLACTONE 25 MG TABLET (FP) PO SCH (10:14)
--- NOTE | 2016-09-13 10:57 | PN ---
Progress Note, Physician History of Present Illness: Patient is a 61 year old female, with a significant past medical history of hypertension, hypercholesterolemia, CAD, [place](X2, s/pp defibrillator/pacemaker and CABG), CHF, DM, kidney stones and peripheral neuropathy, and hypothyroidism presents to ER with increased LE edema, diffuse abdominal pain and atypical chest pain . Denies Nauses, vomiting or diarrhea. No fever or chills. Denies syncope or ICD discharges. She states that her belly was "crampy" and this radiated to her chest for several seconds and she came to ER for evaluation. In the ER, her BNP was elevated and it was felt she was mildly volume overloaded ; her weight is up from last admission and she was triaged to telemetry for IV diuresis. - Current Medication List Current Medications: Active Medications Acetaminophen (Tylenol -) 650 mg PO Q4H PRN PRN Reason: FEVER OR PAIN Last Admin: 09/13/16 04:45 Dose: 650 mg Atorvastatin Calcium (Lipitor -) 20 mg PO HS [facility] Last Admin: 09/12/16 21:45 Dose: 20 mg Clopidogrel Bisulfate (Plavix -) 75 mg PO DAILY [facility] Last Admin: 09/13/16 10:13 Dose: 75 mg Heparin Sodium (Porcine) (Heparin -) 5,000 unit SQ BID [facility] Last Admin: 09/13/16 10:09 Dose: Not Given Furosemide 100 mg/ Sodium (Chloride) 100 mls @ 10 mls/hr IVPB ASDIR [facility] Last Admin: 09/12/16 17:16 Dose: 10 mls/hr Levothyroxine Sodium (Synthroid -) 75 mcg PO DAILY [facility] Last Admin: 09/13/16 10:13 Dose: 75 mcg Lisinopril (Prinivil) 5 mg PO DAILY [facility] Last Admin: 09/13/16 10:13 Dose: 5 mg Metoprolol Succinate (Toprol Xl -) 75 mg PO DAILY [facility] Last Admin: 09/13/16 10:13 Dose: 75 mg Potassium Chloride (K-Dur -) 20 meq PO DAILY [facility] Last Admin: 09/13/16 10:13 Dose: 20 meq Spironolactone (Aldactone -) 50 mg PO DAILY [facility] Last Admin: 09/13/16 10:14 Dose: 50 mg - Objective Vital Signs: Vital Signs Temperature 97.3 F L 09/12/16 21:45 Pulse Rate 71 09/13/16 06:00 Respiratory Rate 20 09/13/16 06:00 Blood Pressure 106/66 09/13/16 06:00 O2 Sat by Pulse Oximetry (%) 98 09/12/16 22:06 Eyes: Yes: WNL, Conjunctiva Clear, EOM Intact HENT: Yes: WNL, Atraumatic, Normocephalic Neck: Yes: WNL, Supple, Trachea Midline Cardiovascular: Yes: WNL, Regular Rate and Rhythm Respiratory: Yes: WNL, Regular, CTA Bilaterally Gastrointestinal: Yes: WNL, Normal Bowel Sounds Genitourinary: Yes: WNL Musculoskeletal: Yes: WNL Extremities: Yes: WNL Edema: Yes Edema: LLE: 2+, RLE: 2+ Integumentary: Yes: WNL Neurological: Yes: WNL, Alert, Oriented ...Motor Strength: WNL Psychiatric: Yes: WNL Labs: CBC, BMP 09/13/16 05:35 Assessment/Plan IMP: Ischemic CM s/p ICD with acute on chronic systolic CHF NSVT Abdominal pain of unclear etiology REC: 1. Acute on chronic systolic CHF: -Severe LV dysfx s/p ICD -Continue tele -IV Lasix drip -Suspect low level TnI elevation is due to decompensated CHF and her baseline is always mildly above zero -Dietary counselling -Cont JANICE-I -To consider Entresto in future, should be started as outpatient -Continue Aldactone 2. NSVT: -due to chronic cardiomyopathy -Has ICD -Keep K and Mg repleted -Continue Toprol -S/p ICD 3. Abdominal pain: now largely resolved -?passive congestion? -Continue diuresis -Further w/u as per medical team
--- NOTE | 2016-09-13 11:14 | PN ---
Physical Exam: SUBJECTIVE: Patient seen and examined OBJECTIVE: Vital Signs Period Temp Pulse Resp BP Sys/Santoro Pulse Ox Last 24 Hr 97.3 F-98.0 F 66-71 18-20 106-122/42-77 98-98 GENERAL: The patient is awake and alert EYES: PERRL ENT: moist mucous membranes. NECK: supple. LUNGS: CTAB HEART: Regular rate and rhythm ABDOMEN: Soft, tender to palpation infraumbilically. edema of abdomen EXTREMITIES: 2+ pitting edema up to thighs with erythema of bilateral lower extremities-slightly improved. lower extremities are tender to palpation. NEUROLOGICAL: Cranial nerves II through XII grossly intact Laboratory Results - last 24 hr 09/12/16 09/13/16 18:17 05:35 Sodium 136 Potassium 4.0 Chloride 92 L Carbon Dioxide 31 Anion Gap 13 BUN 24 H Creatinine 0.9 POC Glucometer 113 Random Glucose 62 L Calcium 9.1 Phosphorus 2.4 L D Magnesium 1.6 L Active Medications Generic Name Dose Route Start Last Admin Trade Name Freq PRN Reason Stop Dose Admin Acetaminophen 650 mg 09/08/16 22:27 09/13/16 04:45 Tylenol - PO 650 mg Q4H PRN Administration FEVER OR PAIN Atorvastatin Calcium 20 mg 09/09/16 22:00 09/12/16 21:45 Lipitor - PO 20 mg HS RINA Administration Clopidogrel Bisulfate 75 mg 09/09/16 10:00 09/13/16 10:13 Plavix - PO 75 mg DAILY RINA Administration Heparin Sodium (Porcine) 5,000 unit 09/09/16 10:00 09/13/16 10:09 Heparin - SQ Not Given BID RINA Furosemide 100 mg/ Sodium 100 mls @ 10 mls/hr 09/12/16 13:15 09/12/16 17:16 Chloride IVPB 10 mls/hr ASDIR RINA Administration Levothyroxine Sodium 75 mcg 09/09/16 10:00 09/13/16 10:13 Synthroid - PO 75 mcg DAILY RINA Administration Lisinopril 5 mg 09/11/16 14:07 09/13/16 10:13 Prinivil PO 5 mg DAILY RINA Administration Magnesium Oxide 400 mg 09/13/16 11:15 Mag-Ox - PO 09/13/16 22:01 BID RINA Metoprolol Succinate 75 mg 09/11/16 14:07 09/13/16 10:13 Toprol Xl - PO 75 mg DAILY RINA Administration Potassium Chloride 20 meq 09/09/16 10:00 09/13/16 10:13 K-Dur - PO 20 meq DAILY RINA Administration Potassium Phos/Sodium Phos 2 packet 09/13/16 11:15 Phos-Nak Packet - PO 09/13/16 22:01 BID RINA Spironolactone 50 mg 09/09/16 10:00 09/13/16 10:14 Aldactone - PO 50 mg DAILY RINA Administration ASSESSMENT/PLAN: 61F systolic CHF, HTN, HLD, hypothyroidism, s/p pacemaker/defibrillator, admitted for abdominal pain. Acute on chronic systolic CHF exacerbation. patient non compliant with medications at home continue lasix gtt @ 10mg/hr this is what has worked for her in the past continue aldactone 50mg po daily cardiology consult appreciated one liter fluid restriction continue trend daily weights today she is 79Kg and has lost 1Kg. Dry weight is around 68Kg pain control trend lytes as patient is on lasix gtt now and replete PRN Transaminitis/Abdominal pain-she has hepatic congestion from CHF likely secondary to hepatic congestion from CHF. states she saw dr. lugo at [facility] who is a metal sprayer machined parts and he did lab work and told her she was fine. CAD/HLD - atorvastatin 20 mg po qhs continue plavix 75mg po daily HTN Well controlled at this time Continue metoprolol XL 75mg po daily lisinopril 5mg po daily Hypothyroidism continue 75mcg synthroid qam DM -not on meds at home ISS outpt follow up troponinemia: always slightly elevated at baseline FEN: fluid restriction hypokalemia-give potassium 20meq po daily hypomagnesemia-give magnesium PO Hypophosphatemia-give neutraphos packet sodium restricted diet PPx: HSQ no GI ppx needed patient is ambulating Visit type - Emergency Visit Emergency Visit: Yes ED Registration Date: 09/10/16 Care time: The patient presented to the Emergency Department on the above date and was hospitalized for further evaluation of their emergent condition. - New Patient This patient is new to me today: No - Critical Care Critical Care patient: No
--- NOTE | 2016-09-13 12:12 | PN ---
Teaching Attending Note Name of Resident: Cristofer Mckeon ATTENDING PHYSICIAN STATEMENT I saw and evaluated the patient. I reviewed the resident's note and discussed the case with the resident. I agree with the resident's findings and plan as documented. SUBJECTIVE:c/o leg heaviness but improved since admission. denies CP, SOB, cough , N/V/C/D OBJECTIVE: Last Vital Signs Temp Pulse Resp BP Pulse Ox 97.3 F L 70 20 129/84 98 09/12/16 21:45 09/13/16 10:00 09/13/16 10:00 09/13/16 10:00 09/13/16 05:00 Intake & Output 09/10/16 09/11/16 09/12/16 09/13/16 23:59 23:59 23:59 23:59 Intake Total 240 1340 210 320 Balance 240 1340 210 320 Weight 173 lb 2 oz 176 lb 2 oz 177 lb 4 oz 174 lb 9.6 oz ASSESSMENT AND PLAN: 61yo F with multiple comorbidities presented to the ER and was admitted for further evaluation of their emergent condition 1. Acute on Chronic systolic CHF- currently hemodynamically stable. was not diuresing well with IVP and now on lasix ggt. monitor electrolytes and kidney function. baseline dry weight 68kg. currently 79kg. cont ggt. cardio on board. pt is a good candidate for entresto to be intiated as outpatient 2. Hypomagnesemia- Mg 800mg 3. Hypophosphatemia- Kphos 4. abdominal pain- now resolved. has chronic abdominal pain and usually presenting symptom when in heart failure 5. DVT ppx- hep sq
[2016-09-13] MEDS ORDERED: PT OWN MED DRAWER 7, Y5N ONE (12:34)
[2016-09-13] MEDS: NAPH,MB-DB/K PH,MBDB POWDER PACKET PO SCH ×2 (12:45→21:59)
[2016-09-13] MEDS: MAGNESIUM OXIDE 400 MG TABLET (FP) PO SCH ×2 (12:45→21:58)
[2016-09-13] MEDS: FUROSEMIDE INJECTION 100 MG in SODIUM CHLORIDE 90 ML IVPB SCH (12:45)
[2016-09-13] MEDS: ATORVASTATIN CA 20 MG TABLET (FP) PO SCH (21:58)
[2016-09-14] MEDS ORDERED: FUROSEMIDE 100 MG/10 ML INJECTABLE VIAL ONE (02:11)
[2016-09-14 07:51] VITALS: TEMP 98
[2016-09-14 07:51] LABS: CALCIUM 8.8 mg/dL (8.5-10.1)
[2016-09-14 07:54] LABS: COCKROFT - GAULT 89.9895; CREATININE 0.8 mg/dL (0.55-1.02); MAGNESIUM 1.8 mg/dL (1.8-2.4); PHOSPHOROUS 2.4 mg/dL (2.5-4.9)
[2016-09-14] MEDS ORDERED: FUROSEMIDE 40 MG/4 ML INJECTABLE VIAL IVPUSH SCH (10:15)
[2016-09-14] MEDS ORDERED: MAGNESIUM OXIDE 400 MG TABLET (FP) PO SCH (10:15)
[2016-09-14] MEDS ORDERED: NAPH,MB-DB/K PH,MBDB POWDER PACKET PO SCH (10:15)
[2016-09-14] MEDS: HEPARIN NA (PORCINE) 5,000 UNITS/ML 1ML VIAL SQ SCH (10:41)
[2016-09-14] MEDS: SPIRONOLACTONE 25 MG TABLET (FP) PO SCH (10:42)
[2016-09-14] MEDS: LISINOPRIL 5 MG TABLET (FP) PO SCH (10:42)
[2016-09-14] MEDS: LEVOTHYROXINE NA 75 MCG TABLET (FP) PO SCH (10:42)
[2016-09-14] MEDS: CLOPIDOGREL BISULFATE 75 MG TABLET (FP) PO SCH (10:42)
[2016-09-14] MEDS: METOPROLOL SUCCINATE 50 MG TAB.SR.24H (FP) PO SCH (10:43)
[2016-09-14] MEDS: POTASSIUM CHLORIDE TABS 20 MEQ TABLET.ER (FP) PO SCH (10:47)
--- NOTE | 2016-09-14 11:30 | PN ---
Progress Note, Physician Chief Complaint: Pt A&Ox3; denies chest pain. Wants to sign out AMA. History of Present Illness: The patient is a 61 year old female, with a significant past medical history of hypertension, hypercholesterolemia, diabetes, coronary artery disease s/p defibrillator/pacemaker s/p CABG, [place], CHF, hypothyroidism, kidney stones and peripheral neuropathy, who presents to the emergency department with abdominal pain since approximately 4:30 PM this afternoon. The patient describes the pain as sharp and localizes it to the periumbilical area but states that it radiates upwards to her chest. The patient rates her pain as a 10/10 in severity. The patient additionally endorses shortness of breath, the patient reports needing to use 2 pillows to sleep at night in order to breathe. At baseline, the patient has chronic lower extremity edema but reports that her lower extremities have been more swollen over the past couple of days. The patient denies fever, chills, cough, nausea, vomiting, diarrhea, constipation or dysuria. This patient is well known to this hospital with multiple admissions in the past couple of months. Allergies: Aspirin. Past Surgical History: PEG tube placement, Stent placement x 2, CABG (2003), ICD /Pacemaker (11/2014), Cholecystectomy (04/2016). Social History: Current everyday smoker (3 cigarettes per day). Denies alcohol or drug use. PCP: Dr. Parrish Ferrer Building Mover: Dr. Dick Cage - Current Medication List Current Medications: Active Medications Acetaminophen (Tylenol -) 650 mg PO Q4H PRN PRN Reason: FEVER OR PAIN Last Admin: 09/13/16 04:45 Dose: 650 mg Atorvastatin Calcium (Lipitor -) 20 mg PO HS [facility] Last Admin: 09/13/16 21:58 Dose: 20 mg Clopidogrel Bisulfate (Plavix -) 75 mg PO DAILY [facility] Last Admin: 09/14/16 10:42 Dose: 75 mg Furosemide (Lasix Injection -) 80 mg IVPUSH 0600,1400,2000 [facility] Last Admin: 09/14/16 10:47 Dose: Not Given Heparin Sodium (Porcine) (Heparin -) 5,000 unit SQ BID [facility] Last Admin: 09/14/16 10:41 Dose: Not Given Levothyroxine Sodium (Synthroid -) 75 mcg PO DAILY [facility] Last Admin: 09/14/16 10:42 Dose: 75 mcg Lisinopril (Prinivil) 5 mg PO DAILY [facility] Last Admin: 09/14/16 10:42 Dose: 5 mg Magnesium Oxide (Mag-Ox -) 400 mg PO BID [facility] Stop: 09/14/16 22:01 Last Admin: 09/14/16 10:41 Dose: 400 mg Metoprolol Succinate (Toprol Xl -) 75 mg PO DAILY [facility] Last Admin: 09/14/16 10:43 Dose: Not Given Potassium Chloride (K-Dur -) 20 meq PO DAILY [facility] Last Admin: 09/14/16 10:47 Dose: Not Given Potassium Phos/Sodium Phos (Phos-Nak Packet -) 1 packet PO BID [facility] Stop: 09/14/16 22:01 Last Admin: 09/14/16 10:46 Dose: Not Given Spironolactone (Aldactone -) 50 mg PO DAILY [facility] Last Admin: 09/14/16 10:42 Dose: 50 mg - Objective Vital Signs: Vital Signs Temperature 98 F 09/14/16 06:00 Pulse Rate 66 09/14/16 06:00 Respiratory Rate 18 09/14/16 06:00 Blood Pressure 98/58 09/14/16 06:00 O2 Sat by Pulse Oximetry (%) 98 09/13/16 22:00 Constitutional: Yes: Anxious, Mild Distress Eyes: Yes: WNL HENT: Yes: WNL Neck: Yes: WNL Cardiovascular: Yes: Pulse Irregular Respiratory: Yes: Regular Gastrointestinal: Yes: Soft ...Rectal Exam: Yes: Deferred Genitourinary: No: Anuria Breast(s): Yes: WNL Musculoskeletal: Yes: Muscle Weakness Extremities: Yes: Cool Edema: No Peripheral Pulses WNL: No Peripheral Pulses: Left Doralis Pedis: 1+, Right Dorsalis Pedis: 1+ Neurological: Yes: Alert, Oriented Psychiatric: Yes: Alert, Oriented Labs: CBC, BMP 09/14/16 06:00 Abnormal Lab Results 09/14/16 06:00 Chloride 92 L Carbon Dioxide 33 H BUN 25 H Phosphorus 2.4 L Problem List - Problems (1) Acute combined systolic and diastolic ACC/AHA stage C congestive heart failure Assessment/Plan: On metoprolol, spironolactone, lisinopril, furosemide. Replete electrolytes. Code(s): I50.41 - ACUTE COMBINED SYSTOLIC AND DIASTOLIC (CONGESTIVE) HRT FAIL (2) Noncompliance with medication regimen Assessment/Plan: Pt should have generic medications prescribed whenever possible; sporadic noncompliance may at least partially be due to cost. Code(s): Z91.14 - PATIENT'S OTHER NONCOMPLIANCE WITH MEDICATION REGIMEN (3) Dyspepsia Assessment/Plan: Continue with GI f/u. Code(s): K30 - FUNCTIONAL DYSPEPSIA (4) Hyperbilirubinemia Code(s): E80.6 - OTHER DISORDERS OF BILIRUBIN METABOLISM (5) Hyperlipidemia Assessment/Plan: statin; diet modification. Code(s): E78.5 - HYPERLIPIDEMIA, UNSPECIFIED (6) Hypertension Assessment/Plan: Lisinopril dose lowered; f/u BP serially. Code(s): I10 - ESSENTIAL (PRIMARY) HYPERTENSION (7) Peripheral neuropathy Code(s): G62.9 - POLYNEUROPATHY, UNSPECIFIED (8) Sphincter of Oddi dysfunction Code(s): K83.4 - SPASM OF SPHINCTER OF ODDI (9) Status post THR (total hip replacement) Code(s): Z96.649 - PRESENCE OF UNSPECIFIED ARTIFICIAL HIP JOINT (10) Postoperative abdominal pain Code(s): R10.9 - UNSPECIFIED ABDOMINAL PAIN G89.18 - OTHER ACUTE POSTPROCEDURAL PAIN (11) Cigarette nicotine dependence Assessment/Plan: pt again encouraged to not smoke. Code(s): F17.210 - NICOTINE DEPENDENCE, CIGARETTES, UNCOMPLICATED (12) Coronary artery disease Code(s): I25.10 - ATHSCL HEART DISEASE OF [place] CORONARY ARTERY W/O ANG PCTRS (13) Depression Code(s): F32.9 - MAJOR DEPRESSIVE DISORDER, SINGLE EPISODE, UNSPECIFIED (14) Diabetes Code(s): E11.9 - TYPE 2 DIABETES MELLITUS WITHOUT COMPLICATIONS (15) Fatty liver Code(s): K76.0 - FATTY (CHANGE OF) LIVER, NOT ELSEWHERE CLASSIFIED (16) Hypothyroidism Code(s): E03.9 - HYPOTHYROIDISM, UNSPECIFIED (17) ICD (implantable cardioverter-defibrillator) in place Code(s): Z95.810 - PRESENCE OF AUTOMATIC (IMPLANTABLE) CARDIAC DEFIBRILLATOR (18) Tobacco use disorder Code(s): Z72.0 - TOBACCO USE
--- NOTE | 2016-09-14 11:44 | DS ---
Physical Exam: SUBJECTIVE: Patient seen and examined at bedside patient is very upset and was yelling and screaming at staff and myself wants to sign out AMA Refusing lasix gtt and even offered to change to IV Push and she still refused OBJECTIVE: Vital Signs Period Temp Pulse Resp BP Sys/Santoro Pulse Ox Last 24 Hr 97 F-98.4 F 63-78 18-19 98-126/58-75 98 PHYSICAL EXAM GENERAL: The patient is awake and alert EYES: PERRL ENT: moist mucous membranes. NECK: supple. LUNGS: CTAB HEART: Regular rate and rhythm ABDOMEN: Soft, tender to palpation infraumbilically. edema of abdomen EXTREMITIES: 2+ pitting edema up to thighs with erythema of bilateral lower extremities-slightly improved. lower extremities are tender to palpation. NEUROLOGICAL: Cranial nerves II through XII grossly intact LABS Laboratory Results - last 24 hr 09/14/16 06:00 Sodium 136 Potassium 3.9 Chloride 92 L Carbon Dioxide 33 H Anion Gap 11 BUN 25 H Creatinine 0.8 Random Glucose 81 D Calcium 8.8 Phosphorus 2.4 L Magnesium 1.8 HOSPITAL COURSE: Date of Admission:09/10/16 Date of Discharge: 09/14/16 61F with multiple medical problems presents to the hospital with acute on chronic exacerbation of CHF. Patient visits the ED very frequently as she goes in to exacerbation of CHF frequently due to non compliance with medications. She states she could not afford the medications as they are frequently being changed and she has to refill them every time the medications are changed. She was placed on telemetry and started on IV lasix for diuresis and seen by cardiology. Patient was refusing IV lasix on and off and would pull out her IV when she didnt want to take the medications. She was tried on PO demedex but still continued to gain weight. patient decided and agreed to lasix gtt and it was started and she started to lose weight. Last night she refused the lasix gtt and this morning signed out AMA. Risks of not being treated were explained to the patient including but not limited to PA suiden cardiac shortness of breath and inability to do her activities of daily living and poor quality of life. She still wanted to sign out AMA. Dr. Cage who is her lead vulcanizing operator aware and will follow up with her as an outpatient. Minutes to complete discharge: 40 Discharge Summary Reason For Visit: EDEMA OF LOWER EXTREMITY Current Active Problems Acute combined systolic and diastolic ACC/AHA stage C congestive heart failure ( Acute) Chronic systolic congestive heart failure (Acute) Hypokalemia (Acute) Lower extremity edema (Acute) Noncompliance with medication regimen (Acute) Abdominal pain, diffuse (Chronic) Chest pain (Chronic) Dyspepsia (Chronic) Hyperbilirubinemia (Chronic) Hyperlipidemia (Chronic) Hypertension (Chronic) Peripheral neuropathy (Chronic) Restless leg syndrome (Chronic) Sphincter of Oddi dysfunction (Chronic) Status post THR (total hip replacement) (Chronic) Transaminitis (Chronic) Condition: Guarded - Instructions Diet, Activity, Other Instructions: eat a low sodium diet please continue your home medications except where changes were made you must chart picker your medications from the pharmacy if you do not take your medications you will get worse follow up with your primary care doctor follow up with the lead vulcanizing operator Referrals: Dick Cage MD [Staff Physician] - 1 Week Disposition: AGAINST MEDICAL ADVICE - Home Medications Comprehensive Discharge Medication List: Ambulatory Orders Calamine 8% Topical Lotion - 1 applic TP BID PRN #0 bottle 08/04/16 Clopidogrel Bisulfate [Plavix -] 75 mg PO DAILY #30 tablet 08/04/16 Levothyroxine [Synthroid -] 75 mcg PO DAILY #30 tab 08/04/16 Mineral Oil/Petrolat,Wht/Water [Eucerin (Large Jar) -] 1 applic TP DAILY PRN #0 jar 08/04/16 Spironolactone 50 mg PO DAILY #30 tablet 08/04/16 Furosemide [Lasix -] 80 mg PO BID #60 tablet 08/27/16 Metoprolol Succinate [Toprol Xl] 100 mg PO DAILY #30 tab.er.24h 08/27/16 Potassium Chloride 20 meq PO DAILY #30 tab 08/27/16 Atorvastatin Ca [Lipitor] 20 mg PO HS 09/08/16 Lisinopril [Prinivil] 5 mg PO DAILY #30 tablet 09/14/16 This patient is new to me today: No Emergency Visit: Yes ED Registration Date: 09/10/16 Care time: The patient presented to the Emergency Department on the above date and was hospitalized for further evaluation of their emergent condition. Critical Care patient: No - Discharge Referral Referred to [facility] No
[2016-09-14 12:39] VITALS: BP 104/62; PULSE 63
--- NOTE | 2016-09-14 16:19 | PN ---
Teaching Attending Note Name of Resident: Cristofer Mckeon ATTENDING PHYSICIAN STATEMENT I saw and evaluated the patient. I reviewed the resident's note and discussed the case with the resident. I agree with the resident's findings and plan as documented. Patient has no new complain, feels better but wants to go home. Patient would like to leave against medical advice.(AMA) Vital Signs Temperature 98 F 09/14/16 10:00 Pulse Rate 63 09/14/16 10:00 Respiratory Rate 18 09/14/16 10:00 Blood Pressure 104/62 09/14/16 10:00 O2 Sat by Pulse Oximetry (%) 98 09/14/16 06:00
== END 2016-09-14 12:00 | disposition left against medical advice (07) | DRG 292 ==
LOC: JER 19:37 → JERBED 22:13 → UNDOADMOB 22:13 → JERBED 22:13 → UNDOADMIN 22:13 → JERBED 09-09 00:34 → J4S 09-09 00:34 → OBSVTOIN 09-09 14:03 → INTOOBSV 09-09 14:03 → J4S 09-10 14:03 → OBSVTOIN 09-10 14:03 → JERBED 09-10 14:03
PROVIDERS: ADMIT Internal Medicine; ATTEND Internal Medicine
DX: I11.0 Hypertensive heart disease with heart failure (principal); I47.1 Supraventricular tachycardia; I25.10 Atherosclerotic heart disease of native coronary artery without angina pectoris; Z95.1 Presence of aortocoronary bypass graft; E78.00 Pure hypercholesterolemia, unspecified; E03.9 Hypothyroidism, unspecified; Z95.5 Presence of coronary angioplasty implant and graft; Z95.810 Presence of automatic (implantable) cardiac defibrillator; E11.42 Type 2 diabetes mellitus with diabetic polyneuropathy; J45.909 Unspecified asthma, uncomplicated; I50.43 Acute on chronic combined systolic (congestive) and diastolic (congestive) heart failure; Z72.0 Tobacco use; E87.5 Hyperkalemia; R60.0 Localized edema; I25.2 Old myocardial infarction; Z91.14 Patient's other noncompliance with medication regimen; Z79.4 Long term (current) use of insulin; Z66 Do not resuscitate; I42.9 Cardiomyopathy, unspecified; E87.6 Hypokalemia; K76.1 Chronic passive congestion of liver; E83.42 Hypomagnesemia; E83.39 Other disorders of phosphorus metabolism; K30 Functional dyspepsia; E80.6 Other disorders of bilirubin metabolism; F32.9 Major depressive disorder, single episode, unspecified
CPT/HCPCS: 36415; 71010-TC; 80048; 80053; 82550; 82553; 83690; 83735; 83880; 84100; 84484; 85025; 85027; 93005; 93010; 99283-25; J1644

== ENCOUNTER 2016-10-11 15:19 | Inpatient (IN) | payer OTHER, BC ==
[2016-10-11 17:48] LABS: BASOPHIL 0.2 % (0-2.0); MCH 26.4 pg (25.7-33.7); MEAN CELL VOLUME 82.6 fl (80-96); MEAN PLT VOLUME 9.7 fl (7.5-11.1); NEUTROPHILS 74.8 % (42.8-82.8); PLATELET COUNT 164 K/MM3 (134-434); RDW 23.1 % (11.6-15.6); WHITE BLOOD COUNT 6.2 K/mm3 (4.0-10.0)
--- NOTE | 2016-10-11 18:15 | PDOC ---
History of Present Illness - History of Present Illness Initial Comments: 10/11/16 18:23 The patient is a 61 year old female, with a significant past medical history of hypertension, hyperlipidemia, Dm, CAD s/p defibrillator/pacemaker s/p CABG, [place], CHF, hypothyroidism, kidney stones, and peripheral neuropathy, who presents to the emergency department from the office of Dr. San at the liver transplant center at [facility], a week after being discharged (ED visit on 10/04/16) for worsening shortness of breath and lower extremity edema today. The patient reports exertional SOB. She states she can walk for a few minutes, but states she has to sit and rest secondary to her dyspnea. She states her lower extremities are more swollen today, but admits to taking her medications today. She also reports diffuse abdominal discomfort today. She states she recently changed her PMD, but denies having made an appointment to meet the new PMD, Dr. Rueda. As per discharge summary from Dr. San, the patient was being seen for hepatomegaly to evaluate for autoimmune hepatitis. The patient is not currently on medication for her liver. She denies chest pain, headache and dizziness. She denies fever, chills, nausea , vomit, diarrhea and constipation. She denies dysuria, frequency, urgency and hematuria. Allergies: aspirin Past surgical history: PEG tube placement, Stents x2, CABG (2003), ICD/ Pacemaker (November), cholecystectomy (April 2016) Social history: current everyday tobacco use (3 cigarettes daily). Denies alcohol or drug use PCP - Dr. Parrish Ferrer/ Dr. Rueda Lay Out Technician - Dr. Dick Cage <Giselle Huerta - Last Filed: 10/11/16 18:23> <Alanis See - Last Filed: 10/11/16 19:23> <Carlos Crawley - Last Filed: 10/11/16 20:54> - General Chief Complaint: Edema Stated Complaint: PAIN/ FEET, LEGS Time Seen by Provider: 10/11/16 16:08 Past History <Giselle Huerta - Last Filed: 10/11/16 18:23> - Past Medical History Anemia: No Asthma: Yes Cancer: No Cardiac Disorders: Yes (Stents, PM/Defib.) CVA: No COPD: No CHF: Yes Dementia: No Diabetes: No GI Disorders: Yes Disorders: No HTN: Yes Hypercholesterolemia: Yes Liver Disease: Yes Psychiatric Problems: Yes (depression.) Suicide Attempt (Hx): No Seizures: No Thyroid Disease: Yes (Hypo) - Surgical History Abdominal Surgery: Yes (hx of peg tube.) Appendectomy: No Cardiac Surgery: Yes (bypass,stent x2, CABG 2003, ICD/Pacer 12/02) Cholecystectomy: Yes (04/2016) Lung Surgery: (cabg 2003) Neurologic Surgery: No Orthopedic Surgery: Yes (Right THR) - Immunization History Immunization Up to Date: Yes - Psycho/Social/Smoking Cessation Hx Anxiety: No Suicidal Ideation: No Smoking Status: No Smoking History: Never smoked Have you smoked in the past 12 months: Yes Number of Cigarettes Smoked Daily: 5 Information on smoking cessation initiated: Yes 'Breaking Loose' booklet given: 07/22/16 Hx Alcohol Use: No Drug/Substance Use Hx: No Substance Use Type: None Hx Substance Use Treatment: No <Alanis See - Last Filed: 10/11/16 19:23> <Carlos Crawley - Last Filed: 10/11/16 20:54> - Past Medical History Allergies/Adverse Reactions: Allergies Allergy/AdvReac Type Severity Reaction Status Date / Time aspirin Allergy Mild Rash Verified 10/11/16 15:30 Home Medications: Ambulatory Orders Calamine 8% Topical Lotion - 1 applic TP BID PRN #0 bottle 08/04/16 Clopidogrel Bisulfate [Plavix -] 75 mg PO DAILY #30 tablet 08/04/16 Levothyroxine [Synthroid -] 75 mcg PO DAILY #30 tab 08/04/16 Mineral Oil/Petrolat,Wht/Water [Eucerin (Large Jar) -] 1 applic TP DAILY PRN #0 jar 08/04/16 Spironolactone 50 mg PO DAILY #30 tablet 08/04/16 Furosemide [Lasix -] 80 mg PO BID #60 tablet 08/27/16 Metoprolol Succinate [Toprol Xl] 100 mg PO DAILY #30 tab.er.24h 08/27/16 Potassium Chloride 20 meq PO DAILY #30 tab 08/27/16 Atorvastatin Ca [Lipitor] 20 mg PO HS 09/08/16 Lisinopril [Prinivil] 5 mg PO DAILY #30 tablet 09/14/16 Review of Systems - Review of Systems Able to Perform ROS?: Yes Comments:: 10/11/16 18:23 GENERAL/CONSTITUTIONAL: No fever or chills. No weakness. HEAD, EYES, EARS, NOSE AND THROAT: No change in vision. No ear pain or discharge. No sore throat. CARDIOVASCULAR: (+) shortness of breath. No chest pain RESPIRATORY: No cough, wheezing, or hemoptysis. GASTROINTESTINAL: No nausea, vomiting, diarrhea or constipation. GENITOURINARY: No dysuria, frequency, or change in urination. MUSCULOSKELETAL: (+) lower extremity edema. No joint or muscle pain. No neck or back pain. SKIN: No rash NEUROLOGIC: No headache, vertigo, loss of consciousness, or change in strength/ sensation. ENDOCRINE: No increased thirst. No abnormal weight change. HEMATOLOGIC/LYMPHATIC: No anemia, easy bleeding, or history of blood clots. ALLERGIC/IMMUNOLOGIC: No hives or skin allergy. <Giselle Huerta - Last Filed: 10/11/16 18:23> *Physical Exam - Vital Signs Last Vital Signs Temp Pulse Resp BP Pulse Ox 97.6 F 82 18 116/74 100 10/11/16 15:26 10/11/16 15:26 10/11/16 15:26 10/11/16 15:26 10/11/16 15:45 - Physical Exam Comments: 10/11/16 18:26 GENERAL: Awake, alert, and fully oriented, in no acute distress HEAD: No signs of trauma EYES: PERRLA, EOMI, sclera anicteric, conjunctiva clear ENT: Auricles normal inspection, hearing grossly normal, nares patent, oropharynx clear without exudates. Moist mucosa NECK: Normal ROM, supple, no lymphadenopathy, JVD, or masses LUNGS: Breath sounds equal, clear to auscultation bilaterally. No wheezes, and no crackles HEART: Regular rate and rhythm, normal S1 and S2, no murmurs, rubs or gallops ABDOMEN: (+) diffuse abdominal tenderness to palpation. Distended abdomen. Soft , normoactive bowel sounds. No guarding, no rebound. No masses EXTREMITIES: (+) bilateral 3+ pitting edema. Normal range of motion, No clubbing or cyanosis. No cords, erythema, or tenderness NEUROLOGICAL: Cranial nerves II through XII grossly intact. Normal speech, normal gait SKIN: Warm, Dry, normal turgor, no rashes or lesions noted. <Giselle Huerta - Last Filed: 10/11/16 18:23> - Vital Signs Last Vital Signs Temp Pulse Resp BP Pulse Ox 97.6 F 82 18 116/74 100 10/11/16 15:26 10/11/16 15:26 10/11/16 15:26 10/11/16 15:26 10/11/16 15:45 <Alanis See - Last Filed: 10/11/16 19:23> - Vital Signs Last Vital Signs Temp Pulse Resp BP Pulse Ox 97.6 F 82 18 116/74 100 10/11/16 15:26 10/11/16 15:26 10/11/16 15:26 10/11/16 15:26 10/11/16 15:45 <Carlos Crawley - Last Filed: 10/11/16 20:54> ED Treatment Course - LABORATORY CBC & Chemistry Diagram: 10/11/16 17:30 10/11/16 17:25 - ADDITIONAL ORDERS Additional order review: 10/11/16 17:30 RBC 4.47 MCV 82.6 MCHC 32.0 RDW 23.1 H MPV 9.7 Neutrophils % 74.8 Lymphocytes % 13.4 Monocytes % 11.6 H Eosinophils % 0.0 Basophils % 0.2 <Giselle Huerta - Last Filed: 10/11/16 18:23> - LABORATORY CBC & Chemistry Diagram: 10/11/16 17:30 10/11/16 17:25 - ADDITIONAL ORDERS Additional order review: 10/11/16 17:30 RBC 4.47 MCV 82.6 MCHC 32.0 RDW 23.1 H MPV 9.7 Neutrophils % 74.8 Lymphocytes % 13.4 Monocytes % 11.6 H Eosinophils % 0.0 Basophils % 0.2 - RADIOLOGY Radiology Studies Ordered: Category Date Time Status CXRPORT [CHEST X-RAY PORTABLE*] [RAD] Stat Radiology 10/11/16 17:01 Taken <Alanis See - Last Filed: 10/11/16 19:23> - LABORATORY CBC & Chemistry Diagram: 10/11/16 17:30 10/11/16 17:25 - ADDITIONAL ORDERS Additional order review: Laboratory Results 10/11/16 10/11/16 20:05 17:25 Sodium 139 Potassium 3.2 L Chloride 98 Carbon Dioxide 29 Anion Gap 12 BUN 13 Creatinine 0.7 Creat Clearance w eGFR > 60 Random Glucose 73 L Calcium 8.6 Total Bilirubin 5.4 H AST 30 D ALT 28 D Alkaline Phosphatase 142 H Creatine Kinase 162 D Creatine Kinase Index 3.6 CK-MB (CK-2) 5.728 H Troponin I 0.13 H B-Natriuretic Peptide 1874.16 H Total Protein 6.3 L Albumin 2.7 L Urine Color Pricilla Urine Appearance Clear Urine pH 6.0 Urine Protein 2+ H Urine Glucose (UA) Negative Urine Ketones Negative Urine Blood Negative Urine Nitrite Negative Urine Bilirubin Negative Urine Urobilinogen 4.0 e.u/dl H Ur Leukocyte Esterase Trace H 10/11/16 17:30 RBC 4.47 MCV 82.6 MCHC 32.0 RDW 23.1 H MPV 9.7 Neutrophils % 74.8 Lymphocytes % 13.4 Monocytes % 11.6 H Eosinophils % 0.0 Basophils % 0.2 - Medications Given in the ED: ED Medications Discontinued Medications Generic Name Dose Route Start Last Admin Trade Name Freq PRN Reason Stop Dose Admin Furosemide 40 mg 10/11/16 19:08 10/11/16 19:18 Lasix Injection - IVPUSH 10/11/16 19:09 40 mg ONCE ONE Administration Furosemide 40 mg 10/11/16 19:13 10/11/16 19:18 Lasix Injection - IVPUSH 10/11/16 19:14 40 mg ONCE ONE Administration <Carlos Crawley - Last Filed: 10/11/16 20:54> Medical Decision Making - Medical Decision Making 10/11/16 18:12 61 yo F with h/o HTN DM right sided heart failure, hepatitis ( likley from chronic right sided heart failure and fatty liver ) here today with worsening anasarca, sob and leg edema. pt was just seen by liver specialist dr. DR San, who was evaluating her for possible autoimmune hepatitis. pt was sent by dr. hernandes to ED for worsening edema and heart failure. pt unable to walk only short distances for sob, worse at night. also c/o abd pain from anasarca. no f/c no chest pain. does have bilat leg pain from swelling. on exam pt awake, alert, crackles at lung bases, normal effort, heart RRR no m/r /g. abd diffuse ttp, edematous, distended, ext 3 + pitting edema. differential: worsening fluid overload, renal failure, med noncompliance. plan pt will likely require readmission for further diuresis, possible evaluation for placement as unable to get around at home due to diffuse swelling. chf. r/o mi anemia. plan cxr ekg trop labs 10/11/16 19:22 d/w admitting hospitalist dr Whatley who knows pt very well. will diurese and eval in ED. pt h/o noncompliance. given IV lasix 80 mg. cxr mild congestion. <Alanis See - Last Filed: 10/11/16 19:23> *DC/Admit/Observation/Transfer - Attestations Scribe Attestion: 10/11/16 18:27 Documentation prepared by Giselle Huerta, acting as rn medical inpatient services for Alanis See MD, <Giselle Huerta - Last Filed: 10/11/16 18:23> <Alanis See - Last Filed: 10/11/16 19:23> - Discharge Dispostion Admit: Yes <Carlos Crawley - Last Filed: 10/11/16 20:54> Diagnosis at time of Disposition: CHF (congestive heart failure) - Discharge Dispostion Condition at time of disposition: Stable - Referrals Referrals: Ashley Rueda MD [Primary Care Provider] -
[2016-10-11 19:05] LABS: ALBUMIN 2.7 g/dl (3.4-5.0); ANION GAP 12 (8-16); CALCIUM 8.6 mg/dL (8.5-10.1); CO2 29 mmol/L (21-32); CREATININE 0.7 mg/dL (0.55-1.02); GLUCOSE,RANDOM 73 mg/dL (74-106); SGOT/AST 30 U/L (15-37); SGPT/ALT 28 U/L (12-78)
[2016-10-11] MEDS ORDERED: FUROSEMIDE 40 MG/4 ML INJECTABLE VIAL IVPUSH ONE ×2 (19:08→19:13)
[2016-10-11 19:10] LABS: ALK PHOS 142 U/L (45-117); BILIRUBIN,TOTAL 5.4 mg/dL (0.2-1.0); TOT PROT 6.3 g/dl (6.4-8.2); TROPONIN I 0.13 ng/ml (0.00-0.05)
[2016-10-11] MEDS ORDERED: FUROSEMIDE 40 MG/4 ML INJECTABLE VIAL ONE ×2 (19:14→19:16)
--- NOTE | 2016-10-11 19:54 | HP ---
[id number] 4d : Dr. 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 The symptoms start 4 days ago and have been worsening with dyspnea on on exertion, orthopnea, has to sit up at night to sleep and use 4 pillows. Pt also complained of generalized weakness , difficulty ambulating and lower extremity swelling . The patient was just in the ED last week and was supposed to be on 80mg of Lasix twice per day, Pt instead has been taking 40mg. Pt said she was sent here by Dr Reddy for further evaluation. Pt is also complaining of cold like symptoms with rhinorrhea, mild non productive cough but denies fever, chills, chest pain, palpitation, n/v, no myalgia or arthralgia. Pt still has intermittent abdominal pain and low back pain which are chronic. No recent immobilization, no recent surgery, no hormone therapy, no h/o cancer. ER course was notable for: (1) BNP 1874 (2) CXR: Cardiomegaly and mild congestion (3) Lasix 40mg IV once Recent Travel: none PAST MEDICAL HISTORY: as above PAST SURGICAL HISTORY: PEG tube placement, Stent placement x 2, CABG (2003), ICD/Pacemaker (11/2014), Cholecystectomy (04/2016). Social History: Smoking:current smoker 5 cigarettes per day, 30 pack year smoker Alcohol:denies Drugs: denies Family History: non contributory Allergies aspirin Allergy (Mild, Verified 10/11/16 15:30) Rash HOME MEDICATIONS: Home Medications Medication Instructions Recorded Calamine 8% Topical Lotion - 1 applic TP BID PRN #0 bottle 08/04/16 Clopidogrel Bisulfate [Plavix -] 75 mg PO DAILY #30 tablet 08/04/16 Levothyroxine [Synthroid -] 75 mcg PO DAILY #30 tab 08/04/16 Mineral Oil/Petrolat,Wht/Water 1 applic TP DAILY PRN #0 jar 08/04/16 [Eucerin (Large Jar) -] Spironolactone 50 mg PO DAILY #30 tablet 08/04/16 Furosemide [Lasix -] 80 mg PO BID #60 tablet 08/27/16 Metoprolol Succinate [Toprol Xl] 100 mg PO DAILY #30 tab.er.24h 08/27/16 Potassium Chloride 20 meq PO DAILY #30 tab 08/27/16 Atorvastatin Ca [Lipitor] 20 mg PO HS 09/08/16 Lisinopril [Prinivil] 5 mg PO DAILY #30 tablet 09/14/16 REVIEW OF SYSTEMS CONSTITUTIONAL: generalized weakness, malaise, Absent: fever, chills, diaphoresis,, loss of appetite, weight change HEENT: rhinorrhea, nasal congestion, Absent: throat pain, throat swelling, difficulty swallowing, mouth swelling, ear pain, eye pain, visual changes CARDIOVASCULAR: peripheral edema Absent: chest pain, syncope, palpitations, irregular heart rate, lightheadedness , RESPIRATORY: cough, shortness of breath, dyspnea with exertion, orthopnea, Absent: wheezing, stridor, hemoptysis GASTROINTESTINAL:abdominal pain, Absent: abdominal distension, nausea, vomiting, diarrhea, constipation, melena , hematochezia GENITOURINARY: Absent: dysuria, frequency, urgency, hesitancy, hematuria, flank pain, genital pain MUSCULOSKELETAL: back pain, Absent: myalgia, arthralgia, joint swelling, neck pain SKIN: Absent: rash, itching, pallor HEMATOLOGIC/IMMUNOLOGIC: Absent: easy bleeding, easy bruising, lymphadenopathy, frequent infections ENDOCRINE: Absent: unexplained weight gain, unexplained weight loss, heat intolerance, cold intolerance NEUROLOGIC: Absent: headache, focal weakness or paresthesias, dizziness, unsteady gait, seizure, mental status changes, bladder or bowel incontinence PSYCHIATRIC: Absent: anxiety, depression, suicidal or homicidal ideation, hallucinations. PHYSICAL EXAMINATION Vital Signs - 24 hr 10/11/16 10/11/16 15:26 15:45 Temperature 97.6 F Pulse Rate 82 Respiratory 18 Rate Blood Pressure 116/74 O2 Sat by Pulse 100 100 Oximetry (%) GENERAL: Awake, alert, and fully oriented, in no acute distress. HEAD: Normal with no signs of trauma. EYES: Pupils equal, round and reactive to light, extraocular movements intact, sclera anicteric, conjunctiva clear. No lid lag. EARS, NOSE, THROAT: Ears normal, nares patent, oropharynx clear without exudates. Moist mucous membranes. NECK: Normal range of motion, supple without lymphadenopathy,, or masses. elevated JVD LUNGS:bibasilar crcakles. No wheezes. No accessory muscle use. HEART: Regular rate and rhythm, normal S1 and S2 with pansystolic and early diastolic murmur, rub or gallop. Positive hepatojugualr reflex ABDOMEN: Soft, nontender, distended, normoactive bowel sounds, no guarding, no rebound, no masses. No hepatomegaly or splenomegaly. MUSCULOSKELETAL: Normal range of motion at all joints. No bony deformities or tenderness. No CVA tenderness. UPPER EXTREMITIES: 2+ pulses, warm, well-perfused. No cyanosis. No clubbing. No peripheral edema. LOWER EXTREMITIES: 2+ pulses, warm, well-perfused. No calf tenderness. peripheral edema 2+. calf tenderness NEUROLOGICAL: Cranial nerves II-XII intact. Normal speech. gait not observed PSYCHIATRIC: Cooperative. Good eye contact. Appropriate mood and affect. SKIN: Warm, dry, normal turgor, no rashes or lesions noted, normal capillary refill. Laboratory Results - last 24 hr 10/11/16 10/11/16 17:25 17:30 WBC 6.2 RBC 4.47 Hgb 11.8 Hct 36.9 MCV 82.6 MCHC 32.0 RDW 23.1 H Plt Count 164 MPV 9.7 Neutrophils % 74.8 Lymphocytes % 13.4 Monocytes % 11.6 H Eosinophils % 0.0 Basophils % 0.2 Sodium 139 Potassium 3.2 L Chloride 98 Carbon Dioxide 29 Anion Gap 12 BUN 13 Creatinine 0.7 Creat Clearance w eGFR > 60 Random Glucose 73 L Calcium 8.6 Total Bilirubin 5.4 H AST 30 D ALT 28 D Alkaline Phosphatase 142 H Creatine Kinase 162 D Creatine Kinase Index 3.6 CK-MB (CK-2) 5.728 H Troponin I 0.13 H B-Natriuretic Peptide 1874.16 H Total Protein 6.3 L Albumin 2.7 L CBC, [facility] 10/11/16 17:30 10/11/16 17:25 Laboratory Tests 10/11/16 17:25 Total Bilirubin 5.4 H AST 30 D ALT 28 D Alkaline Phosphatase 142 H Troponin I 0.13 H B-Natriuretic Peptide 1874.16 H Albumin 2.7 L ASSESSMENT/PLAN: 61 year old female 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 and non complaint patient with chronic abdominal pain (thought to be due to liver cirrhosis/biliary tree strictures s/ p lap naomi for acalcalous cholecystitis 05/05), hyperbilirubinemia, HTN, HLD, DM, CAD s/p ID 2003, CABG in 2003 s/p stents2, Systolic CHF s/p ICD/Pacemaker, COPD, current smoker, hypothyroid & peripheral neuropathy presented to The ED with complaint of worsening shortness of breath CHF exacerbation Positive JVD Positive Hepatojugular reflex lower ext edema Dyspnea, orthopnea, wright BNP 1874 Place on telemetry vitals q4h daily weight Intake and output Resume Spironolactone 50 mg PO Daily Start Lasix IV 40mg BID Consider resuming Lasix 80mg PO per Cardio recommendation consider US b/l lower ext r/o DVT Consider Cardiology consult Dr Cage HTN Metoprolol Succinate 100 mg PO DAILY Lisinopril 5mg po daily HLD resume Lipitor 20mg qhs DM Last hgA1c 6.6 on 07/2016 BGM ACHS Novolog sliding scale CAD s/p ID 2003, CABG in 2003 s/p stents2 Resume Plavix 75mg po daily COPD Not in exacerbation Duoneb PRN Hypothyroidism Resume Synthoid 75mcg po daily Hypokalemia Kcl po 40meq daily BMP in am Transaminitis with Hyperbilirubinemia ALP 142, Bili 5.4 chronically elevated will monitor FEN Fluid : None Electrolytes: chemistry in am Nutrition: Cardiac diet, Low Na diet DVT Prophylaxis: Heparin SQ Disposition: admit to Telemetry. Pt will need placement to SNF on discharge. Visit type - Emergency Visit Emergency Visit: Yes ED Registration Date: 10/11/16 Care time: The patient presented to the Emergency Department on the above date and was hospitalized for further evaluation of their emergent condition. - New Patient This patient is new to me today: Yes Date on this admission: 10/12/16 - Critical Care Critical Care patient: No
[2016-10-11] MEDS ORDERED: POTASSIUM CHLORIDE ORAL LIQUID 20 MEQ/15 ML PO ONE (20:12)
[2016-10-11 20:21] LABS: URINE APPEARANCE CLEAR; URINE BILIRUBIN NEGATIVE (NEGATIVE); URINE BLOOD NEGATIVE (NEGATIVE); URINE COLOR AMBER; URINE GLUCOSE (UA) NEGATIVE (NEGATIVE); URINE KETONE NEGATIVE (NEGATIVE); URINE NITRITE NEGATIVE (NEGATIVE); URINE UROBILINOGEN 4.0 E.U/dl E.U./dl (0.2-1.0)
[2016-10-11 20:24] LABS: PLATELET ESTIMATE ADEQUATE (NORMAL)
[2016-10-11 20:25] LABS: ANISOCYTOSIS 3+; HYPOCHROMIA 1+; MICROCYTOSIS 1+; POIKILOCYTOSIS 2+
[2016-10-11 20:26] LABS: OVALOCYTES 1+; SCHISTOCYTES OCC; TARGET CELLS 1+
[2016-10-11 20:27] LABS: SPHEROCYTE FEW
[2016-10-11 20:28] LABS: URINE LEUK ESTERASE TRACE (NEGATIVE); URINE PROTEIN 2+ (NEGATIVE)
[2016-10-11 20:32] LABS: URINE BACTERIA RARE /hpf (NONE SEEN); URINE HYALINE CAST 9 /lpf; URINE MUCUS RARE; URINE RBC 2 /hpf (0-3); URINE WBC 2 /hpf (3-5)
--- NOTE | 2016-10-11 20:54 | PN ---
<Deepika Whatley - Last Filed: 10/11/16 20:54> Teaching Attending Note Name of Resident: Jose Petersdeshawn <Cesar Lofton - Last Filed: 10/12/16 04:54> Teaching Attending Note ATTENDING PHYSICIAN STATEMENT I saw and evaluated the patient. I reviewed the resident's note and discussed the case with the resident. I agree with the resident's findings and plan as documented. SUBJECTIVE: The patient is a 61 year old female, who presented to the emergency department from the office of Dr. San at the liver transplant center at [facility], a week after being discharged (ED visit on 10/04/16) for worsening shortness of breath and lower extremity edema today. The patient reported decreased exercise tolerance and increased lower extremities edema despite reporting compliance with medications. She also reported diffuse abdominal discomfort which was evaluated by Dr. San as per discharge summary. The patient was being seen for hepatomegaly to evaluate for autoimmune hepatitis. On further questioning patient is only taking half of the recommended dose of her lasix and on prior ED visit last week, had missed several doses. She denied chest pain, headache and dizziness. She denied fever, chills, nausea , vomit, diarrhea and constipation. She denied dysuria, frequency, urgency and hematuria. PMD - Dr. Parrish Ferrer/ Dr. Rueda Marketing Database Coordinator - Dr. Dick Cage PAST MEDICAL HISTORY: Hypertension, hyperlipidemia, Dm, CAD s/p defibrillator/ pacemaker s/p CABG, OR, CHF, hypothyroidism, kidney stones, and peripheral neuropathy. PAST SURGICAL HISTORY: PEG tube placement, Stents x2, CABG (2003), ICD/ Pacemaker (November), cholecystectomy (April 2016) SOCIAL HISTORY: Current everyday tobacco use (3 cigarettes daily). Denies alcohol or drug use ALLERGIES: Aspirin OBJECTIVE: Last Vital Signs 3 Temp Pulse Resp BP Pulse Ox 97.6 F 82 18 116/74 100 10/11/16 15:26 10/11/16 15:26 10/11/16 15:26 10/11/16 15:26 10/11/16 15:45 Physical Exam: GENERAL: Awake, alert, and fully oriented, in no acute distress HEENT: Atraumatic. PERRLA, EOMI. Moist mucosa. No JVD LUNGS: No distress, speaks full sentences, clear to auscultation bilaterally HEART: Regular rate and rhythm, normal S1 and S2, no murmurs, rubs or gallops, peripheral pulses normal and equal bilaterally. ABDOMEN: Soft, nontender, normoactive bowel sounds. No guarding, no rebound. No masses EXTREMITIES: (+) Normal inspection, Normal range of motion. No clubbing or cyanosis. Bilateral 2+ pitting edema. NEUROLOGICAL: Cranial nerves II through XII grossly intact. Normal speech, normal gait, no focal sensorimotor deficits SKIN: Warm, Dry, normal turgor, no rashes or lesions noted. Labs: 3 10/11/16 10/11/16 10/11/16 17:25 17:30 20:05 WBC 6.2 RBC 4.47 Hgb 11.8 Hct 36.9 MCV 82.6 MCHC 32.0 RDW 23.1 H Plt Count 164 MPV 9.7 Neutrophils % 74.8 Lymphocytes % 13.4 Monocytes % 11.6 H Eosinophils % 0.0 Basophils % 0.2 Platelet Estimate Adequate Platelet Comment Rare giant plts Hypochromic-Microcytic 1+ Poikilocytosis 2+ Anisocytosis 3+ Microcytosis 1+ Macrocytosis 2+ Spherocytes Few Target Cells 1+ Ovalocytes 1+ Schistocytes Occ Sodium 139 Potassium 3.2 L Chloride 98 Carbon Dioxide 29 Anion Gap 12 BUN 13 Creatinine 0.7 Creat Clearance w eGFR > 60 Random Glucose 73 L Calcium 8.6 Total Bilirubin 5.4 H AST 30 D ALT 28 D Alkaline Phosphatase 142 H Creatine Kinase 162 D Creatine Kinase Index 3.6 CK-MB (CK-2) 5.728 H Troponin I 0.13 H B-Natriuretic Peptide 1874.16 H Total Protein 6.3 L Albumin 2.7 L Urine Color Pricilla Urine Appearance Clear Urine pH 6.0 Ur Specific [place] 1.015 Urine Protein 2+ H Urine Glucose (UA) Negative Urine Ketones Negative Urine Blood Negative Urine Nitrite Negative Urine Bilirubin Negative Urine Urobilinogen 4.0 e.u/dl H Ur Leukocyte Esterase Trace H Urine RBC 2 Urine WBC 2 Ur Epithelial Cells Rare Urine Bacteria Rare Hyaline Casts 9 Urine Mucus Rare Imaging: EXAM: RAD/CHEST X-RAY PORTABLE HISTORY PROVIDED: Shortness of breath. A single frontal portable projection of the chest at 5:03 PM is submitted. The heart size is enlarged. A left-sided ICD is present. Median sternotomy sutures are also noted. There are increased interstitial markings diffusely consistent with pulmonary vascular congestion. The pleural effusions are identified. IMPRESSION: Cardiomegaly and mild congestion Reported By: Robb Matute MD 10/11/161818 ASSESSMENT AND PLAN: 1. CHF exacerbation- decompensated CHF secondary to medication non-compliance - Place on telemetry - Vital signs Q4H - Start Lasix IV 40 mg BID - Resume Spironolactone 50 mg PO daily - Daily weights - Intake and output - Consider US of bilateral lower extremities to rule out DVT - Consider resuming Lasix 80 mg PO per cardio recommendation - Consider Cardiology consult Dr Cage 2. CAD- status post OR and CABG in 2003 (stents2) - Resume Plavix 75mg po daily 3. DM - Novolog sliding scale - BGM ACHS 4. HTN - Metoprolol Succinate 100 mg PO daily - Lisinopril 5mg PO daily 5. HLD - Resume Lipitor 20 mg QHS 6. Hypothyroidism Resume Synthroid 75 mcg po daily 7. Hypokalemia - 40meq Kcl PO - BMP in AM 8. COPD - Duoneb PRN 9. Abd pain - chronic worked up by Dr. San no liver transplant recommended continue care as outpatient 10. DVT PPX - Heparin subq Admit to med tele. Documentation prepared by Cesar Lofton, acting as medical biller coder for Dr. Deepika Whatley MD.
[2016-10-11] MEDS ORDERED: POTASSIUM CHLORIDE ORAL LIQUID 20 MEQ/15 ML ONE (21:37)
[2016-10-11] MEDS: HEPARIN NA (PORCINE) 5,000 UNITS/ML 1ML VIAL SQ SCH (23:24)
[2016-10-11] MEDS: INSULIN SLIDING SCALE (NOVOLOG) 1 VIAL SQ SCH (23:25)
[2016-10-11] MEDS: ATORVASTATIN CA 20 MG TABLET (FP) PO SCH (23:29)
[2016-10-12] MEDS: HEPARIN NA (PORCINE) 5,000 UNITS/ML 1ML VIAL SQ SCH ×3 (05:58→21:38)
[2016-10-12] MEDS: FUROSEMIDE 40 MG/4 ML INJECTABLE VIAL IVPUSH SCH ×2 (05:58→15:06)
[2016-10-12] MEDS: INSULIN SLIDING SCALE (NOVOLOG) 1 VIAL SQ SCH ×3 (06:00→21:38)
[2016-10-12] MEDS: LEVOTHYROXINE NA 75 MCG TABLET (FP) PO SCH (06:00)
[2016-10-12 07:57] LABS: ALBUMIN 2.6 g/dl (3.4-5.0)
[2016-10-12 07:58] LABS: CALCIUM 8.1 mg/dL (8.5-10.1); MAGNESIUM 1.6 mg/dL (1.8-2.4)
[2016-10-12 08:00] LABS: BILIRUBIN,DIRECT 4.1 mg/dL (0.0-0.2); BILIRUBIN,TOTAL 5.5 mg/dL (0.2-1.0); TOT PROT 6.2 g/dl (6.4-8.2)
[2016-10-12 08:01] LABS: COCKROFT - GAULT 93.908; CREATININE 0.8 mg/dL (0.55-1.02); PHOSPHOROUS 2.2 mg/dL (2.5-4.9)
[2016-10-12 08:02] LABS: MCH 26.5 pg (25.7-33.7); MCHC 32.4 g/dl (32.0-36.0); MEAN CELL VOLUME 81.9 fl (80-96); MEAN PLT VOLUME 9.5 fl (7.5-11.1); PLATELET COUNT 154 K/MM3 (134-434); RDW 23.4 % (11.6-15.6); WHITE BLOOD COUNT 5.8 K/mm3 (4.0-10.0)
--- NOTE | 2016-10-12 08:51 | PN ---
Teaching Attending Note Name of Resident: Caty Jarrett ATTENDING PHYSICIAN STATEMENT I saw and evaluated the patient. I reviewed the resident's note and discussed the case with the resident. I agree with the resident's findings and plan as documented. SUBJECTIVE: Patient is comfortable with no acute distress, no shortness of breath, no nausea or vomiting. OBJECTIVE: Vital Signs Temperature 98.0 F 10/12/16 07:55 Pulse Rate 80 10/12/16 07:55 Respiratory Rate 18 10/12/16 07:59 Blood Pressure 129/75 10/12/16 07:55 O2 Sat by Pulse Oximetry (%) 97 10/12/16 07:59 CBCD WBC 5.8 K/mm3 (4.0-10.0) 10/12/16 05:35 RBC 4.47 M/mm3 (3.60-5.2) 10/12/16 05:35 Hgb 11.9 GM/dL (10.7-15.3) 10/12/16 05:35 Hct 36.6 % (32.4-45.2) 10/12/16 05:35 MCV 81.9 fl (80-96) 10/12/16 05:35 MCHC 32.4 g/dl (32.0-36.0) 10/12/16 05:35 RDW 23.4 % (11.6-15.6) H 10/12/16 05:35 Plt Count 154 K/MM3 (134-434) 10/12/16 05:35 MPV 9.5 fl (7.5-11.1) 10/12/16 05:35 CMP Sodium 141 mmol/L (136-145) 10/12/16 05:35 Potassium 3.2 mmol/L (3.5-5.1) L 10/11/16 17:25 Chloride 100 mmol/L (98-107) 10/12/16 05:35 Carbon Dioxide 33 mmol/L (21-32) H 10/12/16 05:35 Anion Gap 8 (8-16) 10/12/16 05:35 BUN 13 mg/dL (7-18) 10/12/16 05:35 Creatinine 0.8 mg/dL (0.55-1.02) 10/12/16 05:35 Creat Clearance w eGFR > 60 (>60) 10/11/16 17:25 Random Glucose 72 mg/dL (74-106) L 10/12/16 05:35 Calcium 8.1 mg/dL (8.5-10.1) L 10/12/16 05:35 Total Bilirubin 5.5 mg/dL (0.2-1.0) H 10/12/16 05:35 AST 31 U/L (15-37) 10/12/16 05:35 ALT 25 U/L (12-78) 10/12/16 05:35 Alkaline Phosphatase 130 U/L (45-117) H 10/12/16 05:35 Total Protein 6.2 g/dl (6.4-8.2) L 10/12/16 05:35 Albumin 2.6 g/dl (3.4-5.0) L 10/12/16 05:35 CARDIAC ENZYMES Creatine Kinase 162 IU/L (26-192) D 10/11/16 17:25 Troponin I 0.13 ng/ml (0.00-0.05) H 10/11/16 17:25 Current Medications Generic Name Dose Route Start Last Admin Trade Name Freq PRN Reason Stop Dose Admin Albuterol/Ipratropium 1 amp 10/11/16 20:47 Duoneb - NEB Q4H PRN SHORTNESS OF BREATH Atorvastatin Calcium 20 mg 10/11/16 22:00 10/11/16 23:29 Lipitor - PO 20 mg HS [facility]INA Administration Clopidogrel Bisulfate 75 mg 10/12/16 10:00 Plavix - PO DAILY [facility] Furosemide 40 mg 10/12/16 06:00 10/12/16 05:58 Lasix Injection - IVPUSH 40 mg BID@0600,1400 [facility] Administration Heparin Sodium (Porcine) 5,000 unit 10/11/16 22:00 10/12/16 05:58 Heparin - SQ Not Given TID [facility] Insulin Aspart 1 vial 10/11/16 22:00 10/12/16 06:00 Novolog Vial Sliding Scale - SQ Not Given ACHS [facility] Protocol Levothyroxine Sodium 75 mcg 10/12/16 07:00 10/12/16 06:00 Synthroid - PO 75 mcg DAILY@0700 [facility] Administration Lisinopril 5 mg 10/12/16 10:00 Prinivil PO DAILY [facility] Metoprolol Succinate 100 mg 10/12/16 10:00 Toprol Xl - PO DAILY [facility] Potassium Chloride 40 meq 10/12/16 10:00 K-Dur - PO DAILY [facility] Spironolactone 50 mg 10/12/16 10:00 Aldactone - PO DAILY [facility] Home Medications Medication Instructions Recorded Calamine 8% Topical Lotion - 1 applic TP BID PRN #0 bottle 08/04/16 Clopidogrel Bisulfate [Plavix -] 75 mg PO DAILY #30 tablet 08/04/16 Levothyroxine [Synthroid -] 75 mcg PO DAILY #30 tab 08/04/16 Mineral Oil/Petrolat,Wht/Water 1 applic TP DAILY PRN #0 jar 08/04/16 [Eucerin (Large Jar) -] Spironolactone 50 mg PO DAILY #30 tablet 08/04/16 Furosemide [Lasix -] 80 mg PO BID #60 tablet 08/27/16 Metoprolol Succinate [Toprol Xl] 100 mg PO DAILY #30 tab.er.24h 08/27/16 Potassium Chloride 20 meq PO DAILY #30 tab 08/27/16 Atorvastatin Ca [Lipitor] 20 mg PO HS 09/08/16 Lisinopril [Prinivil] 5 mg PO DAILY #30 tablet 09/14/16 ASSESSMENT AND PLAN: Patient is a 61 year old female non complaint patient presented with hx of HTN , HLD, DM, CAD s/p MD 2003, CABG in 2003 s/p stents2, Systolic CHF s/p ICD/ Pacemaker, COPD, current smoker, hypothyroid & peripheral neuropathy presented to The ED with complaint of worsening shortness of breath. #Acute over chronic systolic CHF exacerbation secondary to medication non- compliance, admit to telemetry , Vital signs Q4H - continue IV Lasix 40 mg BID , Resume Spironolactone 50 mg PO daily , Daily weights Is and Os, Cardiology consult Dr Cage # CAD- status post MD and CABG in 2003 (stents2) continue Plavix 75mg po daily # DM Novolog sliding scale with coverage # HTN Metoprolol Succinate 100 mg PO daily, Lisinopril 5mg PO daily # HLD Resume Lipitor 20 mg QHS # Hypothyroidism Resume Synthroid 75 mcg po daily # Hypokalemia 40meq Kcl PO # COPD continue Duoneb prn DVT Px: Heparin sq
[2016-10-12 08:53] LABS: TROPONIN I 0.12 ng/ml (0.00-0.05)
[2016-10-12] MEDS: POTASSIUM CHLORIDE TABS 20 MEQ TABLET.ER (FP) PO SCH (09:11)
[2016-10-12] MEDS: SPIRONOLACTONE 25 MG TABLET (FP) PO SCH (09:11)
[2016-10-12] MEDS: CLOPIDOGREL BISULFATE 75 MG TABLET (FP) PO SCH (09:11)
[2016-10-12] MEDS: METOPROLOL SUCCINATE 100 MG TAB.SR.24H (FP) PO SCH (09:11)
[2016-10-12] MEDS: LISINOPRIL 5 MG TABLET (FP) PO SCH (09:11)
[2016-10-12] MEDS ORDERED: MAGNESIUM SULF 50% (8.12 MEQ/2 ML-1 GM VIAL) IVPB ONE (11:00)
[2016-10-12] MEDS: KCL 10 MEQ IVPB 100 ML IVPB SCH ×4 (11:01→15:01)
--- NOTE | 2016-10-12 13:08 | EKG ---
Test Reason : Blood Pressure : / mmHG Vent. Rate : 079 BPM Atrial Rate : 079 BPM P-R Int : 194 ms QRS Dur : 128 ms QT Int : 438 ms P-R-T Axes : 068 110 016 degrees QTc Int : 502 ms SINUS RHYTHM WITH OCCASIONAL PREMATURE VENTRICULAR COMPLEXES POSSIBLE LEFT ATRIAL ENLARGEMENT RIGHT AXIS DEVIATION NON-SPECIFIC INTRA-VENTRICULAR CONDUCTION BLOCK NONSPECIFIC T WAVE ABNORMALITY ABNORMAL ECG WHEN COMPARED WITH ECG OF 04-OCT-2016 16:58, PREMATURE VENTRICULAR COMPLEXES ARE NOW PRESENT MINIMAL CRITERIA FOR ANTEROSEPTAL INFARCT ARE NO LONGER PRESENT NONSPECIFIC T WAVE ABNORMALITY, WORSE IN INFERIOR LEADS Confirmed by VERÓNICA IGNACIO MD ([id number]) on 10/12/2016 1:08:03 PM Referred By: Confirmed By:VERÓNICA IGNACIO MD
--- NOTE | 2016-10-12 14:44 | PN ---
Physical Exam: SUBJECTIVE: Patient seen and examined at bed side this morning. No complaints. Denies chest pain, sob, cough, palpitation, fever, chills, rigors, sweating, abdominal pain, nausea or vomiting. No acute overnight events. As per RN, patient refuses to take medications, needs persistent counseling. OBJECTIVE: Vital Signs Period Temp Pulse Resp BP Sys/Santoro Pulse Ox Last 24 Hr 97.6 F-98.0 F 48-85 18-21 121-143/74-78 97-98 GENERAL: Awake, alert, and fully oriented, in no acute distress. HEAD: Normal with no signs of trauma. EYES: EOM intact, no pallor or icterus. EARS, NOSE, THROAT: Ears normal, nares patent, oropharynx clear without exudates. Moist mucous membranes. NECK: Normal range of motion, supple without lymphadenopathy,, or masses. elevated JVD LUNGS: B/L equal air entry, bibasilar crcakles. No wheezes. No accessory muscle use. HEART: Regular rate and rhythm, normal S1 and S2 with pansystolic and early diastolic murmur. Positive hepatojugular reflex ABDOMEN: Soft, nontender, distended, normoactive bowel sounds, no guarding, no rebound, no masses. No hepatomegaly or splenomegaly. MUSCULOSKELETAL: Normal range of motion at all joints. No bony deformities or tenderness. No CVA tenderness. UPPER EXTREMITIES: 2+ pulses, warm, well-perfused. No cyanosis. No clubbing. No peripheral edema. LOWER EXTREMITIES: 2+ pulses, warm, well-perfused. No calf tenderness. peripheral edema 2+. calf tenderness NEUROLOGICAL: Cranial nerves II-XII intact. Normal speech. gait not observed PSYCHIATRIC: Cooperative. Good eye contact. Appropriate mood and affect. SKIN: Warm, dry, normal turgor, no rashes or lesions noted, normal capillary refill. Laboratory Results - last 24 hr 10/11/16 10/12/16 10/12/16 23:12 05:35 05:35 WBC 5.8 RBC 4.47 Hgb 11.9 Hct 36.6 MCV 81.9 MCHC 32.4 RDW 23.4 H Plt Count 154 MPV 9.5 Sodium 141 Potassium 2.7 L* Chloride 100 Carbon Dioxide 33 H Anion Gap 8 BUN 13 Creatinine 0.8 POC Glucometer 124 Random Glucose 72 L Calcium 8.1 L Phosphorus 2.2 L Magnesium 1.6 L Total Bilirubin Direct Bilirubin AST ALT Alkaline Phosphatase Creatine Kinase 138 Troponin I 0.12 H Total Protein Albumin Triglycerides 71 Cholesterol Total LDL Cholesterol 68 HDL Cholesterol 20 L D Lipase 35 L 10/12/16 10/12/16 10/12/16 05:35 05:35 05:35 WBC RBC Hgb Hct MCV MCHC RDW Plt Count MPV Sodium Potassium Chloride Carbon Dioxide Anion Gap BUN Creatinine POC Glucometer Random Glucose Calcium Phosphorus Magnesium Total Bilirubin 5.5 H Direct Bilirubin 4.1 H D AST 31 ALT 25 Alkaline Phosphatase 130 H Creatine Kinase Cancelled Troponin I Cancelled Total Protein 6.2 L Albumin 2.6 L Triglycerides Cancelled Cholesterol Cancelled Total LDL Cholesterol Cancelled HDL Cholesterol Cancelled Lipase 10/12/16 10/12/16 05:50 11:11 WBC RBC Hgb Hct MCV MCHC RDW Plt Count MPV Sodium Potassium Chloride Carbon Dioxide Anion Gap BUN Creatinine POC Glucometer 79 109 Random Glucose Calcium Phosphorus Magnesium Total Bilirubin Direct Bilirubin AST ALT Alkaline Phosphatase Creatine Kinase Troponin I Total Protein Albumin Triglycerides Cholesterol Total LDL Cholesterol HDL Cholesterol Lipase Active Medications Generic Name Dose Route Start Last Admin Trade Name Freq PRN Reason Stop Dose Admin Albuterol/Ipratropium 1 amp 10/11/16 20:47 Duoneb - NEB Q4H PRN SHORTNESS OF BREATH Atorvastatin Calcium 20 mg 10/11/16 22:00 10/11/16 23:29 Lipitor - PO 20 mg HS RINA Administration Clopidogrel Bisulfate 75 mg 10/12/16 10:00 10/12/16 09:11 Plavix - PO 75 mg DAILY RINA Administration Furosemide 40 mg 10/12/16 06:00 10/12/16 05:58 Lasix Injection - IVPUSH 40 mg BID@0600,1400 [facility] Administration Heparin Sodium (Porcine) 5,000 unit 10/11/16 22:00 10/12/16 05:58 Heparin - SQ Not Given TID [facility] Insulin Aspart 1 vial 10/11/16 22:00 10/12/16 11:21 Novolog Vial Sliding Scale - SQ Not Given ACHS [facility] Protocol Levothyroxine Sodium 75 mcg 10/12/16 07:00 10/12/16 06:00 Synthroid - PO 75 mcg DAILY@0700 [facility] Administration Lisinopril 5 mg 10/12/16 10:00 10/12/16 09:11 Prinivil PO 5 mg DAILY [facility]INA Administration Metoprolol Succinate 100 mg 10/12/16 10:00 10/12/16 09:11 Toprol Xl - PO 100 mg DAILY RINA Administration Potassium Chloride 40 meq 10/12/16 10:00 10/12/16 09:11 K-Dur - PO 40 meq DAILY RINA Administration Spironolactone 50 mg 10/12/16 10:00 10/12/16 09:11 Aldactone - PO 50 mg DAILY RINA Administration CXR 10/12/16: Cardiomegaly and mild congestion. ASSESSMENT/PLAN: Patient is a 61 year old female frequent flyer and non complaint patient with chronic abdominal pain (thought to be due to liver cirrhosis/biliary tree strictures s/p lap naomi for acalcalous cholecystitis 05/05), hyperbilirubinemia , HTN, HLD, DM, CAD s/p [place] 2003, CABG in 2003 s/p stents2, Systolic CHF s/p ICD /Pacemaker, COPD, current smoker, hypothyroid & peripheral neuropathy presented to the ED with the chief complaint of worsening shortness of breath # CHF exacerbation Patient presented with shortness of breath, with a positive JVD, Hepatojugular reflex, B/L lower ext peripheral edema likely has CHF exacerbation. Admitted in Telemetry Continuous Cardiac monitoring Strict Intake and output Daily Weight BNP: 1874 Continue Spironolactone 50 mg PO Daily Start Lasix IV 40mg BID Cardiology consult appreciated CXR showed cardiomegaly and mild congestion 07/10/16 ECHO: Left ventricle is severely dilated. Moderate concentric left ventricular hypertrophy. Left ventricular systolic function is severely reduced. Right ventricle is moderately dilated. Right ventricular systolic function is moderate to severely reduced. Left atrium and right atrium is moderately dilated. Moderate MR. Moderate to severe Tricuspid regurgigation. Right ventricular systolic pressure elevated at 30-40mmHg. Mild # Increased troponin: likely from Demand ischemia Troponin 0.13--->0.12 ---> Troponin pending. EKG: no acute changes # Hypokalemia with hypomagnesemia K-3.2---> 2.7 Patient refused to take PO K-dur yesterday, this morning took 40 of K-Dur. Ordered IV Kcl 10 mEq/L x 3 bags but patient refused to take the 2 bags of Kcl. Will order K-dur 40meq PO and check potassium at 7pm. IV Magnesium 1gm given this morning. Will repeat it in the evening. # Non compliance Patient has visited [facility] 8 times this year, goes to [facility] and other hospitals frequently, was recently discharged from [place] (last week) as per patients daughter. Patient is non compliant to medication at home and refuses medications here at the hospital. Needs constant counseling and family support or else patients medical condition will get worse due to non compliance. # Hypertension-Stable Metoprolol Succinate 100 mg PO DAILY Lisinopril 5mg po daily # Hyperlipidemia Continue Lipitor 20mg PO HS # DM HbA1c on 08/04- 6.6 Finger stick glucose monitoring Insulin sliding scale # CAD s/p [place] 2003, CABG in 2003 s/p stents2 Continue Plavix 75mg po daily # COPD: Not in exacerbation Duoneb PRN # Hypothyroidism TSH-0.25 08/23/16 Continue Synthoid 75mcg po daily # Chronic Elevated liver enzymes with Hyperbilirubinemia Has done work up in the past. ALP 142, Bilirubin 5.4 Avoid hepatotoxic drugs. # FEN Not on IV Fluids Electrolytes to be repeated at 7pm today and tomorrow morning. Cardiac diet, Low Na diet # Prophylaxis For DVT: Heparin SQ For GI: Not indicated # Disposition: Admit to Telemetry. Illness, Investigation and Plan of care explained to the patient. She verbalized understanding. Case seen and discussed with Dr. Elizabeth. Visit type - Emergency Visit Emergency Visit: Yes ED Registration Date: 10/11/16 Care time: The patient presented to the Emergency Department on the above date and was hospitalized for further evaluation of their emergent condition. - New Patient This patient is new to me today: Yes Date on this admission: 10/12/16 - Critical Care Critical Care patient: No
[2016-10-12] MEDS ORDERED: POTASSIUM CHLORIDE TABS 20 MEQ TABLET.ER (FP) PO ONE (16:00)
[2016-10-12] MEDS: ATORVASTATIN CA 20 MG TABLET (FP) PO SCH (21:36)
--- NOTE | 2016-10-12 23:34 | HOSP ---
Physical Examination Vital Signs: Vital Signs Temperature 97.7 F 10/12/16 17:00 Pulse Rate 70 10/12/16 17:00 Respiratory Rate 18 10/12/16 17:00 Blood Pressure 100/52 10/12/16 17:00 O2 Sat by Pulse Oximetry (%) 97 10/12/16 10:59 Labs: CBC, BMP 10/12/16 05:35 10/12/16 05:35 Hospitalist Encounter Assessment: Pt has Potassium level of 2.7 Pt had previously refused blood draw earlier tonight LAbs were reordered BMP, Mg, Phos Pt once again refused and want another wetlands conservation laborer to come draw the blood since the last one " the jerk does not know what he is doing". Explained to patient possible consequences of hypokalemia and electrolytes imbalances including cardiac arrhythmia, heart attack, but the patient still refused to let anyone draw blood tonight. She said she will let them draw the blood for the labs in the morning. Visit type - Emergency Visit Emergency Visit: Yes ED Registration Date: 10/11/16 Care time: The patient presented to the Emergency Department on the above date and was hospitalized for further evaluation of their emergent condition. - New Patient This patient is new to me today: Yes Date on this admission: 10/12/16 - Critical Care Critical Care patient: No
[2016-10-13] MEDS ORDERED: morphine CARPU-JECT 2 MG/1 ML DISP.SYRIN IVPUSH ONE (01:07)
--- NOTE | 2016-10-13 01:17 | CON.CARD ---
Consult Consult Specialty:: cardiology Reason for Consultation:: extensive cardiac hs; admiision for CHF - History of Present Illness History of Present Illness: The patient is a 61 year old black female, with a significant past medical history of hypertension, hyperlipidemia, Dm, CAD s/p defibrillator/pacemaker s/ p CABG, [place], severe systolic CHF, hypothyroidism, kidney stones, peripheral neuropathy, anxiety/depression, who presents to the emergency department from the office of Dr. San at the liver transplant center at [facility], a week after being discharged (ED visit on 10/04/16) for worsening shortness of breath and lower extremity edema today. The patient reports exertional SOB. She states she can walk for a few minutes, but states she has to sit and rest secondary to her dyspnea. She states her lower extremities are more swollen today, but admits to taking her medications today. She also reports diffuse abdominal discomfort today. She states she recently changed her PMD, but denies having made an appointment to meet the new PMD, Dr. Rueda. As per discharge summary from Dr. San, the patient was being seen for hepatomegaly to evaluate for autoimmune hepatitis. The patient is not currently on medication for her liver. She denies chest pain, headache and dizziness. She denies fever, chills, nausea , vomit, diarrhea and constipation. She denies dysuria, frequency, urgency and hematuria. Allergies: aspirin Past surgical history: PEG tube placement, Stents x2, CABG (2003), ICD/ Pacemaker (November), cholecystectomy (April 2016) Social history: current everyday tobacco use (3 cigarettes daily). Denies alcohol or drug use PCP - Dr. Parrish Ferrer/ Dr. Rueda Sharepoint Application Developer - Dr. 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 Had PEG placed 11/03 after suffering vocal cord damage ( EMS intubation). PEG was subsequently removed. ) Hepatobiliary: Yes: Cirrhosis (cardiac cirrhosis), Cholecystitis (s/p lap choly 05/05) Renal/: Yes: Renal Calculi Reproductive: Yes: Postmenopausal ...: No Psych: Yes: Depression Musculoskeletal: Yes: Chronic low back pain, Osteoarthritis Endocrine: Yes: Hypothyroidism - Past Surgical History Past Surgical History: Yes: AICD, CABG, Cholecystectomy, Colonoscopy, Joint Replacement (right THR), Stent (X2) - Alcohol/Substance Use Hx Alcohol Use: No History of Substance Use: reports: None - Smoking History Smoking history: Current some day smoker Have you smoked in the past 12 months: Yes Aproximately how many cigarettes per day: 5 - Social History Usual Living Arrangement: With Child ADL: Independent 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 History of Recent Travel: No Home Medications - Allergies Allergies/Adverse Reactions: Allergies Allergy/AdvReac Type Severity Reaction Status Date / Time aspirin Allergy Mild Rash Verified 10/11/16 15:30 - Home Medications Home Medications: Ambulatory Orders Calamine 8% Topical Lotion - 1 applic TP BID PRN #0 bottle 08/04/16 Clopidogrel Bisulfate [Plavix -] 75 mg PO DAILY #30 tablet 08/04/16 Levothyroxine [Synthroid -] 75 mcg PO DAILY #30 tab 08/04/16 Mineral Oil/Petrolat,Wht/Water [Eucerin (Large Jar) -] 1 applic TP DAILY PRN #0 jar 08/04/16 Spironolactone 50 mg PO DAILY #30 tablet 08/04/16 Furosemide [Lasix -] 80 mg PO BID #60 tablet 08/27/16 Metoprolol Succinate [Toprol Xl] 100 mg PO DAILY #30 tab.er.24h 08/27/16 Potassium Chloride 20 meq PO DAILY #30 tab 08/27/16 Atorvastatin Ca [Lipitor] 20 mg PO HS 09/08/16 Lisinopril [Prinivil] 5 mg PO DAILY #30 tablet 09/14/16 Family Disease History - Family Disease History Family Disease History: Diabetes: Sister (s/p CABG in her 50s), Heart Disease: Father (had unknown cancer), Mother (lived to ), Sister, [place]: Father Review of Systems - Review of Systems Constitutional: reports: Weakness Eyes: reports: No Symptoms HENT: reports: No Symptoms Neck: reports: No Symptoms Cardiovascular: reports: Edema Respiratory: reports: SOB on Exertion Gastrointestinal: reports: Abdominal Pain Genitourinary: reports: Other (vaginal pain/swelling) Breasts: reports: No Symptoms Reported Musculoskeletal: reports: Muscle Weakness Integumentary: reports: Other Neurological: reports: Unsteady Gait, Weakness Psychiatric: reports: Anxiety, Depression - Risk Factors Known Risk Factors: Yes: Age, Diabetes Mellitus, Family History, Hypercholesterolemia, Hypertension, Prior [place] /[place] Stroke, Race, Smoking, Other ( severe systolic CHF) Vital Signs: Vital Signs Temperature 97.9 F 10/12/16 21:00 Pulse Rate 70 10/12/16 21:00 Respiratory Rate 18 10/12/16 21:00 Blood Pressure 114/64 10/12/16 21:00 O2 Sat by Pulse Oximetry (%) 98 10/12/16 22:00 Constitutional: Yes: Calm Eyes: Yes: WNL HENT: Yes: WNL Neck: Yes: WNL Respiratory: Yes: Diminished Gastrointestinal: Yes: Soft Renal/: No: Anuria Cardiovascular: Yes: Regular Rate and Rhythm JVD: Yes Carotid Bruit: No PMI: Displaced Heart Sounds: Yes: S1, Split S2 Murmur: Yes: Systolic Murmur, Grade 2 Musculoskeletal: Yes: Joint Stiffness, Muscle Weakness Extremities: Yes: Cool Edema: Yes Edema: LLE: 2+, RLE: 2+ Peripheral Pulses WNL: Yes Integumentary: Yes: Venous Stasis Changes Neurological: Yes: Alert, Oriented, Weakness Psychiatric: Yes: Other - Other Data Labs, Other Data: CBC, BMP 10/12/16 05:35 10/12/16 05:35 Troponin, BNP 10/12/16 10/12/16 10/12/16 05:35 05:35 15:45 Troponin I 0.12 H Cancelled 0.12 H Troponin, BNP 10/12/16 10/12/16 10/12/16 05:35 05:35 15:45 Troponin I 0.12 H Cancelled 0.12 H Ejection Fraction %: LVEF < 40 % Imaging - Results Chest X-ray: Image Reviewed ([mild CHF) EKG: Image Reviewed (NSR; IVCD) Problem List - Problems (1) Dyspepsia Code(s): K30 - FUNCTIONAL DYSPEPSIA (2) Hyperbilirubinemia Code(s): E80.6 - OTHER DISORDERS OF BILIRUBIN METABOLISM (3) Hyperlipidemia Code(s): E78.5 - HYPERLIPIDEMIA, UNSPECIFIED (4) Hypertension Code(s): I10 - ESSENTIAL (PRIMARY) HYPERTENSION (5) Peripheral neuropathy Code(s): G62.9 - POLYNEUROPATHY, UNSPECIFIED (6) Status post THR (total hip replacement) Code(s): Z96.649 - PRESENCE OF UNSPECIFIED ARTIFICIAL HIP JOINT (7) Postoperative abdominal pain Code(s): R10.9 - UNSPECIFIED ABDOMINAL PAIN G89.18 - OTHER ACUTE POSTPROCEDURAL PAIN (8) Hypokalemia Code(s): E87.6 - HYPOKALEMIA (9) Lower extremity edema Code(s): R60.0 - LOCALIZED EDEMA (10) Cigarette nicotine dependence Code(s): F17.210 - NICOTINE DEPENDENCE, CIGARETTES, UNCOMPLICATED (11) Coronary artery disease Code(s): I25.10 - ATHSCL HEART DISEASE OF [place] CORONARY ARTERY W/O ANG PCTRS (12) Depression Code(s): F32.9 - MAJOR DEPRESSIVE DISORDER, SINGLE EPISODE, UNSPECIFIED (13) Diabetes Code(s): E11.9 - TYPE 2 DIABETES MELLITUS WITHOUT COMPLICATIONS Qualifiers: Diabetes mellitus type: type 2 Diabetes mellitus complication status: with unspecified complications Diabetes mellitus terminal operations manager insulin use: with care home use Qualified Code(s): E11.8 - Type 2 diabetes mellitus with unspecified complications; Z79.4 - intermediate school teacher (current) use of insulin (14) Hypothyroidism Assessment/Plan: f/u TFTs (free T4 mildly elevated 05/2016). Code(s): E03.9 - HYPOTHYROIDISM, UNSPECIFIED (15) ICD (implantable cardioverter-defibrillator) in place Assessment/Plan: recenltly interrogated; occasional episodes of NSVT. Code(s): Z95.810 - PRESENCE OF AUTOMATIC (IMPLANTABLE) CARDIAC DEFIBRILLATOR (16) Acute on chronic systolic and diastolic heart failure, NYHA class 1 Assessment/Plan: On metoprolol, spironolactone, lisinoprl, furosemide. F/u Is and Os, daily weight, BUN/Cr. Replete K, PO4, and Mg; keep K+ 4-4.5, Mg 2-2.3. Code(s): I50.43 - ACUTE ON CHRONIC COMBINED SYSTOLIC AND DIASTOLIC HRT FAIL (17) NSVT (nonsustained ventricular tachycardia) Assessment/Plan: Continue metoprolol, lisinopril, spironolactone. Replete electrolytes. Code(s): I47.2 - VENTRICULAR TACHYCARDIA
[2016-10-13] MEDS: INSULIN SLIDING SCALE (NOVOLOG) 1 VIAL SQ SCH ×4 (06:01→21:48)
[2016-10-13] MEDS: HEPARIN NA (PORCINE) 5,000 UNITS/ML 1ML VIAL SQ SCH ×3 (06:01→21:47)
[2016-10-13] MEDS: FUROSEMIDE 40 MG/4 ML INJECTABLE VIAL IVPUSH SCH ×2 (06:02→14:22)
[2016-10-13] MEDS: LEVOTHYROXINE NA 75 MCG TABLET (FP) PO SCH (06:02)
[2016-10-13 07:16] LABS: MCH 26.5 pg (25.7-33.7); MCHC 31.8 g/dl (32.0-36.0); MEAN CELL VOLUME 83.4 fl (80-96); MEAN PLT VOLUME 9.7 fl (7.5-11.1); PLATELET COUNT 151 K/MM3 (134-434); RDW 23.3 % (11.6-15.6); WHITE BLOOD COUNT 6.6 K/mm3 (4.0-10.0)
[2016-10-13 07:54] LABS: ALBUMIN 2.7 g/dl (3.4-5.0); ANION GAP 10 (8-16); BILIRUBIN,TOTAL 4.7 mg/dL (0.2-1.0); CALCIUM 8.5 mg/dL (8.5-10.1); CO2 32 mmol/L (21-32); CREATININE 0.8 mg/dL (0.55-1.02); GLUCOSE,RANDOM 73 mg/dL (74-106); MAGNESIUM 1.9 mg/dL (1.8-2.4); PHOSPHOROUS 2.4 mg/dL (2.5-4.9); SGOT/AST 29 U/L (15-37); SGPT/ALT 23 U/L (12-78); TOT PROT 6.3 g/dl (6.4-8.2)
[2016-10-13 07:55] LABS: ALK PHOS 131 U/L (45-117)
[2016-10-13] MEDS: CLOPIDOGREL BISULFATE 75 MG TABLET (FP) PO SCH (09:28)
[2016-10-13] MEDS: SPIRONOLACTONE 25 MG TABLET (FP) PO SCH (09:28)
[2016-10-13] MEDS: POTASSIUM CHLORIDE TABS 20 MEQ TABLET.ER (FP) PO SCH (09:29)
[2016-10-13] MEDS: LISINOPRIL 5 MG TABLET (FP) PO SCH (09:29)
[2016-10-13] MEDS: METOPROLOL SUCCINATE 100 MG TAB.SR.24H (FP) PO SCH (09:30)
--- NOTE | 2016-10-13 10:53 | PN ---
Progress Note, Physician Chief Complaint: Pt sitting up at bedside; less itching and swelling of legs; no chest pain or dyspnea; no palpitations. History of Present Illness: The patient is a 61 year old black female, with a significant past medical history of hypertension, hyperlipidemia, Dm, CAD s/p defibrillator/pacemaker s/ p CABG, SD, severe systolic CHF, hypothyroidism, kidney stones, peripheral neuropathy, anxiety/depression, who presents to the emergency department from the office of Dr. San at the liver transplant center at [facility], a week after being discharged (ED visit on 10/04/16) for worsening shortness of breath and lower extremity edema today. The patient reports exertional SOB. She states she can walk for a few minutes, but states she has to sit and rest secondary to her dyspnea. She states her lower extremities are more swollen today, but admits to taking her medications today. She also reports diffuse abdominal discomfort today. She states she recently changed her PMD, but denies having made an appointment to meet the new PMD, Dr. Rueda. As per discharge summary from Dr. San, the patient was being seen for hepatomegaly to evaluate for autoimmune hepatitis. The patient is not currently on medication for her liver. She denies chest pain, headache and dizziness. She denies fever, chills, nausea , vomit, diarrhea and constipation. She denies dysuria, frequency, urgency and hematuria. Allergies: aspirin Past surgical history: PEG tube placement, Stents x2, CABG (2003), ICD/ Pacemaker (November), cholecystectomy (April 2016) Social history: current everyday tobacco use (3 cigarettes daily). Denies alcohol or drug use PCP - Dr. Parrish Ferrer/ Dr. Rueda Payroll Accounting Manager - Dr. Dick Cage - Current Medication List Current Medications: Active Medications Albuterol/Ipratropium (Duoneb -) 1 amp NEB Q4H PRN PRN Reason: SHORTNESS OF BREATH Atorvastatin Calcium (Lipitor -) 20 mg PO HS [facility] Last Admin: 10/12/16 21:36 Dose: 20 mg Clopidogrel Bisulfate (Plavix -) 75 mg PO DAILY [facility] Last Admin: 10/13/16 09:28 Dose: 75 mg Furosemide (Lasix Injection -) 40 mg IVPUSH BID@0600,1400 [facility] Last Admin: 10/13/16 06:02 Dose: 40 mg Heparin Sodium (Porcine) (Heparin -) 5,000 unit SQ TID [facility] Last Admin: 10/13/16 06:01 Dose: Not Given Insulin Aspart (Novolog Vial Sliding Scale -) 1 vial SQ ACHS [facility] PRN Reason: Protocol Last Admin: 10/13/16 06:01 Dose: Not Given Levothyroxine Sodium (Synthroid -) 75 mcg PO DAILY@0700 [facility] Last Admin: 10/13/16 06:02 Dose: 75 mcg Lisinopril (Prinivil) 5 mg PO DAILY [facility] Last Admin: 10/13/16 09:29 Dose: 5 mg Metoprolol Succinate (Toprol Xl -) 100 mg PO DAILY [facility] Last Admin: 10/13/16 09:30 Dose: 100 mg Potassium Chloride (K-Dur -) 40 meq PO DAILY [facility] Last Admin: 10/13/16 09:29 Dose: 40 meq Spironolactone (Aldactone -) 50 mg PO DAILY [facility] Last Admin: 10/13/16 09:28 Dose: 50 mg - Objective Vital Signs: Vital Signs Temperature 97.8 F 10/13/16 06:00 Pulse Rate 64 10/13/16 06:00 Respiratory Rate 17 10/13/16 06:00 Blood Pressure 116/67 10/13/16 06:00 O2 Sat by Pulse Oximetry (%) 98 10/13/16 06:00 Constitutional: Yes: Calm Eyes: Yes: WNL HENT: Yes: WNL Neck: Yes: WNL Cardiovascular: Yes: Regular Rate and Rhythm, S1, S2 (split) Respiratory: Yes: Regular Gastrointestinal: Yes: Soft ...Rectal Exam: Yes: Deferred Genitourinary: No: Anuria Musculoskeletal: Yes: Muscle Weakness Extremities: Yes: Cool Edema: Yes Edema: LLE: 1+, RLE: 1+ Peripheral Pulses WNL: No Peripheral Pulses: Left Doralis Pedis: 1+, Right Dorsalis Pedis: 1+ Integumentary: Yes: Erythema (mild (LEs)) Neurological: Yes: Alert, Oriented Labs: CBC, BMP 10/13/16 05:35 10/13/16 05:35 - ....Imaging Other: Image Reviewed (NSR; periods of ventricular pacing) Problem List - Problems (1) Dyspepsia Code(s): K30 - FUNCTIONAL DYSPEPSIA (2) Hyperbilirubinemia Code(s): E80.6 - OTHER DISORDERS OF BILIRUBIN METABOLISM (3) Hyperlipidemia Code(s): E78.5 - HYPERLIPIDEMIA, UNSPECIFIED (4) Hypertension Code(s): I10 - ESSENTIAL (PRIMARY) HYPERTENSION (5) Peripheral neuropathy Code(s): G62.9 - POLYNEUROPATHY, UNSPECIFIED (6) Status post THR (total hip replacement) Code(s): Z96.649 - PRESENCE OF UNSPECIFIED ARTIFICIAL HIP JOINT (7) Postoperative abdominal pain Code(s): R10.9 - UNSPECIFIED ABDOMINAL PAIN G89.18 - OTHER ACUTE POSTPROCEDURAL PAIN (8) Hypokalemia Assessment/Plan: K+ now 3.7; keep 4-4.5 (hx NSVT, severe systolic LV dysfunction). Add magnesium oxid3 400 mg bid; keep Mg (now 1.9) at 2-2.3. Keep PO4>2.5-3.0. Code(s): E87.6 - HYPOKALEMIA (9) Lower extremity edema Code(s): R60.0 - LOCALIZED EDEMA (10) Cigarette nicotine dependence Code(s): F17.210 - NICOTINE DEPENDENCE, CIGARETTES, UNCOMPLICATED (11) Coronary artery disease Code(s): I25.10 - ATHSCL HEART DISEASE OF [place] CORONARY ARTERY W/O ANG PCTRS (12) Depression Code(s): F32.9 - MAJOR DEPRESSIVE DISORDER, SINGLE EPISODE, UNSPECIFIED (13) Diabetes Code(s): E11.9 - TYPE 2 DIABETES MELLITUS WITHOUT COMPLICATIONS Qualifiers: Diabetes mellitus type: type 2 Diabetes mellitus complication status: with unspecified complications Diabetes mellitus vermin exterminator insulin use: with vermin exterminator use Qualified Code(s): E11.8 - Type 2 diabetes mellitus with unspecified complications; Z79.4 - custodial (current) use of insulin (14) Hypothyroidism Assessment/Plan: f/u TFTs (free T4 mildly elevated 05/2016). Code(s): E03.9 - HYPOTHYROIDISM, UNSPECIFIED (15) ICD (implantable cardioverter-defibrillator) in place Assessment/Plan: recently interrogated; occasional episodes of NSVT. Code(s): Z95.810 - PRESENCE OF AUTOMATIC (IMPLANTABLE) CARDIAC DEFIBRILLATOR (16) Acute on chronic systolic and diastolic heart failure, NYHA class 1 Assessment/Plan: On metoprolol, spironolactone, lisinopril, furosemide. F/u Is and Os, daily weight, BUN/Cr. Replete K, PO4, and Mg; keep K+ 4-4.5, Mg 2-2.3. Keep P04 >2.5. (As discussed with pharmacist, will give neutrophos 1 packet daily, and check electrolytes in am). Code(s): I50.43 - ACUTE ON CHRONIC COMBINED SYSTOLIC AND DIASTOLIC HRT FAIL (17) NSVT (nonsustained ventricular tachycardia) Code(s): I47.2 - VENTRICULAR TACHYCARDIA (18) Sleep apnea Assessment/Plan: Pt sleeps fitfully at night, then seeps hours during the day. Recommend sleep studies to r/o sleep apnea.. Code(s): G47.30 - SLEEP APNEA, UNSPECIFIED
--- NOTE | 2016-10-13 13:30 | PN ---
Physical Exam: SUBJECTIVE: Patient seen and examined at bed side this morning. Says she feels better. No other complaints. Denies chest pain, sob, cough, palpitation, abdominal pain, nausea or vomiting. Yesterday evening, as per night team, patient refused and didn't want her labs to be drawn despite telling her the consequences. OBJECTIVE: Vital Signs Period Temp Pulse Resp BP Sys/Santoro Pulse Ox Last 24 Hr 97 F-97.9 F 62-73 17-20 100-116/52-72 98-98 GENERAL: Awake, alert, and fully oriented, in no acute distress. HEAD: Normal with no signs of trauma. EYES: EOM intact, no pallor or icterus. EARS, NOSE, THROAT: Ears normal, nares patent, oropharynx clear without exudates. Moist mucous membranes. NECK: Normal range of motion, supple without lymphadenopathy,, or masses. elevated JVD LUNGS: B/L equal air entry, decreased breath sounds at the b/l bases.No wheezes. No accessory muscle use. HEART: Regular rate and rhythm, normal S1 and S2 with pansystolic and early diastolic murmur. Positive hepatojugular reflex ABDOMEN: Soft, nontender, distended, normoactive bowel sounds, no guarding, no rebound, no masses. No hepatomegaly or splenomegaly. MUSCULOSKELETAL: Normal range of motion at all joints. No bony deformities or tenderness. No CVA tenderness. UPPER EXTREMITIES: 2+ pulses, warm, well-perfused. No cyanosis. No clubbing. No peripheral edema. LOWER EXTREMITIES: 2+ pulses, warm, well-perfused. No calf tenderness. peripheral edema 2+. No calf tenderness NEUROLOGICAL: Cranial nerves II-XII intact. Normal speech. gait not observed PSYCHIATRIC: Cooperative. Good eye contact. Appropriate mood and affect. SKIN: Warm, dry, normal turgor, no rashes or lesions noted, normal capillary refill. Laboratory Results - last 24 hr 10/12/16 10/12/16 10/12/16 05:35 15:45 16:38 WBC RBC Hgb Hct MCV MCHC RDW Plt Count MPV Sodium Potassium Chloride Carbon Dioxide Anion Gap BUN Creatinine Creat Clearance w eGFR POC Glucometer 102 Random Glucose Calcium Phosphorus Magnesium Total Bilirubin AST ALT Alkaline Phosphatase Troponin I 0.12 H Total Protein Albumin Cholesterol 86 10/12/16 10/13/16 10/13/16 21:35 05:35 05:35 WBC 6.6 RBC 4.61 Hgb 12.2 Hct 38.4 MCV 83.4 MCHC 31.8 L RDW 23.3 H Plt Count 151 MPV 9.7 Sodium 141 Potassium 3.7 D Chloride 99 Carbon Dioxide 32 Anion Gap 10 BUN 14 Creatinine 0.8 Creat Clearance w eGFR > 60 POC Glucometer 113 Random Glucose 73 L Calcium 8.5 Phosphorus 2.4 L Magnesium 1.9 Total Bilirubin 4.7 H AST 29 ALT 23 Alkaline Phosphatase 131 H Troponin I Total Protein 6.3 L Albumin 2.7 L Cholesterol 10/13/16 10/13/16 05:55 12:07 WBC RBC Hgb Hct MCV MCHC RDW Plt Count MPV Sodium Potassium Chloride Carbon Dioxide Anion Gap BUN Creatinine Creat Clearance w eGFR POC Glucometer 80 148 Random Glucose Calcium Phosphorus Magnesium Total Bilirubin AST ALT Alkaline Phosphatase Troponin I Total Protein Albumin Cholesterol Active Medications Generic Name Dose Route Start Last Admin Trade Name Freq PRN Reason Stop Dose Admin Albuterol/Ipratropium 1 amp 10/11/16 20:47 Duoneb - NEB Q4H PRN SHORTNESS OF BREATH Atorvastatin Calcium 20 mg 10/11/16 22:00 10/12/16 21:36 Lipitor - PO 20 mg HS [facility] Administration Clopidogrel Bisulfate 75 mg 10/12/16 10:00 10/13/16 09:28 Plavix - PO 75 mg DAILY [facility] Administration Furosemide 40 mg 10/12/16 06:00 10/13/16 06:02 Lasix Injection - IVPUSH 40 mg BID@0600,1400 [facility] Administration Heparin Sodium (Porcine) 5,000 unit 10/11/16 22:00 10/13/16 06:01 Heparin - SQ Not Given TID [facility] Insulin Aspart 1 vial 10/11/16 22:00 10/13/16 12:33 Novolog Vial Sliding Scale - SQ Not Given ACHS [facility] Protocol Levothyroxine Sodium 75 mcg 10/12/16 07:00 10/13/16 06:02 Synthroid - PO 75 mcg DAILY@0700 [facility] Administration Lisinopril 5 mg 10/12/16 10:00 10/13/16 09:29 Prinivil PO 5 mg DAILY [facility] Administration Magnesium Oxide 400 mg 10/13/16 10:30 Mag-Ox - PO BID [facility] Metoprolol Succinate 100 mg 10/12/16 10:00 10/13/16 09:30 Toprol Xl - PO 100 mg DAILY [facility] Administration Potassium Chloride 40 meq 10/12/16 10:00 10/13/16 09:29 K-Dur - PO 40 meq DAILY [facility] Administration Spironolactone 50 mg 10/12/16 10:00 10/13/16 09:28 Aldactone - PO 50 mg DAILY [facility] Administration ASSESSMENT/PLAN: CXR 10/12/16: Cardiomegaly and mild congestion. ASSESSMENT/PLAN: Patient is a 61 year old female frequent flyer and non complaint patient with chronic abdominal pain (thought to be due to liver cirrhosis/biliary tree strictures s/p lap naomi for acalcalous cholecystitis 05/05), hyperbilirubinemia , HTN, HLD, DM, CAD s/p [place] 2003, CABG in 2003 s/p stents2, Systolic CHF s/p ICD /Pacemaker, COPD, current smoker, hypothyroid & peripheral neuropathy presented to the ED with the chief complaint of worsening shortness of breath # CHF exacerbation -resolving Admitted in Telemetry Continuous Cardiac monitoring, no acute events noted in the monitor. Strict Intake and output Daily Weight, 182lbs-->183lbs BNP on admission: 1874 Continue Spironolactone 50 mg PO Daily Continue Lasix IV 40mg BID Cardiology consult appreciated CXR showed cardiomegaly and mild congestion 07/10/16 ECHO: Left ventricle is severely dilated. Moderate concentric left ventricular hypertrophy. Left ventricular systolic function is severely reduced. Right ventricle is moderately dilated. Right ventricular systolic function is moderate to severely reduced. Left atrium and right atrium is moderately dilated. Moderate MR. Moderate to severe Tricuspid regurgigation. Right ventricular systolic pressure elevated at 30-40mmHg. Mild # Increased troponin: likely from Demand ischemia Troponin 0.13--->0.12 ---> 0.12---> ordered at 1:35pm EKG: no acute changes on admission. # Hypokalemia with hypomagnesemia- Resolved. K-3.2---> 2.7--->3.7 Magnesium-1.9 # Non compliance Patient has visited [facility] 8 times this year, goes to [facility] and other hospitals frequently, was recently discharged from [place] (last week) as per patients daughter. Patient is non compliant to medication at home and refuses medications here at the hospital. Needs constant counseling and family support or else patients medical condition will get worse due to non compliance. # Hypertension-Stable Metoprolol Succinate 100 mg PO DAILY Lisinopril 5mg po daily # Hyperlipidemia Continue Lipitor 20mg PO HS # DM HbA1c on 08/04- 6.6 Finger stick glucose monitoring Insulin sliding scale # CAD s/p [place] 2003, CABG in 2003 s/p stents2 Continue Plavix 75mg po daily # COPD: Not in exacerbation Duoneb PRN # Hypothyroidism TSH-0.25 08/23/16 Continue Synthoid 75mcg po daily # Chronic Elevated liver enzymes with Hyperbilirubinemia Has done work up in the past. ALP 142--->131, Bilirubin 5.4 --->4.1 Avoid hepatotoxic drugs. # FEN Not on IV Fluids Electrolytes to be repeated tomorrow morning. Cardiac diet, Low Na diet # Prophylaxis For DVT: Heparin SQ For GI: Not indicated # Disposition: Admit to Telemetry. Duration of stay unknown. Illness, Investigation and Plan of care explained to the patient. She verbalized understanding. Case seen and discussed with Dr. Elizabeth. Visit type - Emergency Visit Emergency Visit: Yes ED Registration Date: 10/11/16 Care time: The patient presented to the Emergency Department on the above date and was hospitalized for further evaluation of their emergent condition. - New Patient This patient is new to me today: No - Critical Care Critical Care patient: No - Discharge Referral Referred to [facility] Med P.C.: No
[2016-10-13] MEDS: MAGNESIUM OXIDE 400 MG TABLET (FP) PO SCH ×2 (14:22→21:50)
[2016-10-13] MEDS: NAPH,MB-DB/K PH,MBDB POWDER PACKET PO SCH (17:04)
--- NOTE | 2016-10-13 18:11 | PN ---
Teaching Attending Note Name of Resident: Caty Jarrett ATTENDING PHYSICIAN STATEMENT I saw and evaluated the patient. I reviewed the resident's note and discussed the case with the resident. I agree with the resident's findings and plan as documented. SUBJECTIVE: feeling better , still having swelling of her Lower extremities OBJECTIVE: Vital Signs Temperature 97.3 F L 10/13/16 14:00 Pulse Rate 50 L 10/13/16 14:00 Respiratory Rate 20 10/13/16 14:00 Blood Pressure 83/57 10/13/16 14:00 O2 Sat by Pulse Oximetry (%) 98 10/13/16 09:00 CBCD WBC 6.6 K/mm3 (4.0-10.0) 10/13/16 05:35 RBC 4.61 M/mm3 (3.60-5.2) 10/13/16 05:35 Hgb 12.2 GM/dL (10.7-15.3) 10/13/16 05:35 Hct 38.4 % (32.4-45.2) 10/13/16 05:35 MCV 83.4 fl (80-96) 10/13/16 05:35 MCHC 31.8 g/dl (32.0-36.0) L 10/13/16 05:35 RDW 23.3 % (11.6-15.6) H 10/13/16 05:35 Plt Count 151 K/MM3 (134-434) 10/13/16 05:35 MPV 9.7 fl (7.5-11.1) 10/13/16 05:35 CMP Sodium 141 mmol/L (136-145) 10/13/16 05:35 Potassium 3.7 mmol/L (3.5-5.1) D 10/13/16 05:35 Chloride 99 mmol/L (98-107) 10/13/16 05:35 Carbon Dioxide 32 mmol/L (21-32) 10/13/16 05:35 Anion Gap 10 (8-16) 10/13/16 05:35 BUN 14 mg/dL (7-18) 10/13/16 05:35 Creatinine 0.8 mg/dL (0.55-1.02) 10/13/16 05:35 Creat Clearance w eGFR > 60 (>60) 10/13/16 05:35 Random Glucose 73 mg/dL (74-106) L 10/13/16 05:35 Calcium 8.5 mg/dL (8.5-10.1) 10/13/16 05:35 Total Bilirubin 4.7 mg/dL (0.2-1.0) H 10/13/16 05:35 AST 29 U/L (15-37) 10/13/16 05:35 ALT 23 U/L (12-78) 10/13/16 05:35 Alkaline Phosphatase 131 U/L (45-117) H 10/13/16 05:35 Total Protein 6.3 g/dl (6.4-8.2) L 10/13/16 05:35 Albumin 2.7 g/dl (3.4-5.0) L 10/13/16 05:35 CARDIAC ENZYMES Creatine Kinase 138 IU/L (26-192) 10/12/16 05:35 Troponin I 0.12 ng/ml (0.00-0.05) H 10/12/16 15:45 Current Medications Generic Name Dose Route Start Last Admin Trade Name Freq PRN Reason Stop Dose Admin Albuterol/Ipratropium 1 amp 10/11/16 20:47 Duoneb - NEB Q4H PRN SHORTNESS OF BREATH Atorvastatin Calcium 20 mg 10/11/16 22:00 10/12/16 21:36 Lipitor - PO 20 mg HS [facility] Administration Clopidogrel Bisulfate 75 mg 10/12/16 10:00 10/13/16 09:28 Plavix - PO 75 mg DAILY [facility] Administration Furosemide 40 mg 10/12/16 06:00 10/13/16 14:22 Lasix Injection - IVPUSH 40 mg BID@0600,1400 [facility] Administration Heparin Sodium (Porcine) 5,000 unit 10/11/16 22:00 10/13/16 14:27 Heparin - SQ Not Given TID [facility] Insulin Aspart 1 vial 10/11/16 22:00 10/13/16 17:08 Novolog Vial Sliding Scale - SQ Not Given ACHS [facility] Protocol Levothyroxine Sodium 75 mcg 10/12/16 07:00 10/13/16 06:02 Synthroid - PO 75 mcg DAILY@0700 [facility] Administration Lisinopril 5 mg 10/12/16 10:00 10/13/16 09:29 Prinivil PO 5 mg DAILY [facility] Administration Magnesium Oxide 400 mg 10/13/16 10:30 10/13/16 14:22 Mag-Ox - PO 400 mg BID [facility] Administration Metoprolol Succinate 100 mg 10/12/16 10:00 10/13/16 09:30 Toprol Xl - PO 100 mg DAILY [facility] Administration Potassium Chloride 40 meq 10/12/16 10:00 10/13/16 09:29 K-Dur - PO 40 meq DAILY [facility] Administration Potassium Phos/Sodium Phos 1 packet 10/13/16 16:00 10/13/16 17:04 Phos-Nak Packet - PO 1 packet DAILY [facility] Administration Spironolactone 50 mg 10/12/16 10:00 10/13/16 09:28 Aldactone - PO 50 mg DAILY [facility] Administration PE: per resident's notes ASSESSMENT AND PLAN: Patient is a 61 year old female non complaint patient presented with hx of HTN , HLD, DM, CAD s/p [place] 2003, CABG in 2003 s/p stents2, Systolic CHF s/p ICD/ Pacemaker, COPD, current smoker, hypothyroid & peripheral neuropathy presented to The ED with complaint of worsening shortness of breath. #Acute over chronic systolic CHF exacerbation secondary to medication non- compliance, On IV Lasix 40 mg BID , Resume Spironolactone 50 mg PO daily , Daily weights Is and Os, Cardiology consult Dr Cage , CMp in am. # CAD- status post FL and CABG in 2003 (stents2) continue Plavix 75mg po daily # DM Novolog sliding scale with coverage # HTN Metoprolol Succinate 100 mg PO daily, Lisinopril 5mg PO daily # HLD Resume Lipitor 20 mg QHS # Hypothyroidism Resume Synthroid 75 mcg po daily # Hypokalemia 40meq Kcl PO # COPD continue Duoneb prn DVT Px: Heparin sq
[2016-10-13] MEDS: ATORVASTATIN CA 20 MG TABLET (FP) PO SCH (21:50)
[2016-10-14] MEDS ORDERED: traMADol HCL 50 MG TABLET PO PRN ×2 (03:44→18:10)
[2016-10-14] MEDS: INSULIN SLIDING SCALE (NOVOLOG) 1 VIAL SQ SCH ×4 (06:11→22:18)
[2016-10-14] MEDS: HEPARIN NA (PORCINE) 5,000 UNITS/ML 1ML VIAL SQ SCH ×4 (06:12→22:18)
[2016-10-14] MEDS: FUROSEMIDE 40 MG/4 ML INJECTABLE VIAL IVPUSH SCH ×2 (06:17→14:21)
[2016-10-14] MEDS: LEVOTHYROXINE NA 75 MCG TABLET (FP) PO SCH (06:17)
[2016-10-14 08:18] LABS: MCH 26.1 pg (25.7-33.7); MCHC 30.7 g/dl (32.0-36.0); MEAN CELL VOLUME 84.8 fl (80-96); MEAN PLT VOLUME 9.8 fl (7.5-11.1); PLATELET COUNT 169 K/MM3 (134-434); RDW 23.8 % (11.6-15.6); WHITE BLOOD COUNT 6.2 K/mm3 (4.0-10.0)
--- NOTE | 2016-10-14 09:09 | PN ---
Progress Note, Physician History of Present Illness: The patient is a 61 year old black female, with a significant past medical history of hypertension, hyperlipidemia, Dm, CAD s/p defibrillator/pacemaker s/ p CABG, [place], severe systolic CHF, hypothyroidism, kidney stones, peripheral neuropathy, anxiety/depression, who presents to the emergency department from the office of Dr. San at the liver transplant center at [facility], a week after being discharged (ED visit on 10/04/16) for worsening shortness of breath and lower extremity edema today. The patient reports exertional SOB. She states she can walk for a few minutes, but states she has to sit and rest secondary to her dyspnea. She states her lower extremities are more swollen today, but admits to taking her medications today. She also reports diffuse abdominal discomfort today. She states she recently changed her PMD, but denies having made an appointment to meet the new PMD, Dr. Rueda. As per discharge summary from Dr. San, the patient was being seen for hepatomegaly to evaluate for autoimmune hepatitis. The patient is not currently on medication for her liver. She denies chest pain, headache and dizziness. She denies fever, chills, nausea , vomit, diarrhea and constipation. She denies dysuria, frequency, urgency and hematuria. Allergies: aspirin Past surgical history: PEG tube placement, Stents x2, CABG (2003), ICD/ Pacemaker (November), cholecystectomy (April 2016) Social history: current everyday tobacco use (3 cigarettes daily). Denies alcohol or drug use PCP - Dr. Parrish Ferrer/ Dr. 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 Dick Cage - Current Medication List Current Medications: Active Medications Albuterol/Ipratropium (Duoneb -) 1 amp NEB Q4H PRN PRN Reason: SHORTNESS OF BREATH Atorvastatin Calcium (Lipitor -) 20 mg PO HS [facility] Last Admin: 10/13/16 21:50 Dose: 20 mg Clopidogrel Bisulfate (Plavix -) 75 mg PO DAILY [facility] Last Admin: 10/13/16 09:28 Dose: 75 mg Furosemide (Lasix Injection -) 40 mg IVPUSH BID@0600,1400 [facility] Last Admin: 10/14/16 06:17 Dose: 40 mg Heparin Sodium (Porcine) (Heparin -) 5,000 unit SQ TID [facility] Last Admin: 10/14/16 06:12 Dose: Not Given Insulin Aspart (Novolog Vial Sliding Scale -) 1 vial SQ ACHS [facility] PRN Reason: Protocol Last Admin: 10/14/16 06:11 Dose: Not Given Levothyroxine Sodium (Synthroid -) 75 mcg PO DAILY@0700 [facility] Last Admin: 10/14/16 06:17 Dose: 75 mcg Lisinopril (Prinivil) 5 mg PO DAILY [facility] Last Admin: 10/13/16 09:29 Dose: 5 mg Magnesium Oxide (Mag-Ox -) 400 mg PO BID [facility] Last Admin: 10/13/16 21:50 Dose: 400 mg Metoprolol Succinate (Toprol Xl -) 100 mg PO DAILY [facility] Last Admin: 10/13/16 09:30 Dose: 100 mg Potassium Chloride (K-Dur -) 40 meq PO DAILY [facility] Last Admin: 10/13/16 09:29 Dose: 40 meq Potassium Phos/Sodium Phos (Phos-Nak Packet -) 1 packet PO DAILY [facility] Last Admin: 10/13/16 17:04 Dose: 1 packet Spironolactone (Aldactone -) 50 mg PO DAILY [facility] Last Admin: 10/13/16 09:28 Dose: 50 mg Tramadol HCl (Ultram -) 50 mg PO Q4H PRN PRN Reason: PAIN LEVEL 6-10 Last Admin: 10/14/16 04:28 Dose: 50 mg - Objective Vital Signs: Vital Signs Temperature 98.4 F 10/14/16 06:00 Pulse Rate 63 10/14/16 08:50 Respiratory Rate 20 10/14/16 08:50 Blood Pressure 113/66 10/14/16 08:50 O2 Sat by Pulse Oximetry (%) 100 10/14/16 08:50 Eyes: Yes: WNL, Conjunctiva Clear, EOM Intact HENT: Yes: WNL, Atraumatic, Normocephalic Neck: Yes: WNL, Supple, Trachea Midline Cardiovascular: Yes: WNL, Regular Rate and Rhythm Respiratory: Yes: WNL, Regular, CTA Bilaterally Gastrointestinal: Yes: WNL, Normal Bowel Sounds Genitourinary: Yes: WNL Musculoskeletal: Yes: WNL Extremities: Yes: WNL Edema: No Integumentary: Yes: WNL Neurological: Yes: WNL, Alert, Oriented ...Motor Strength: WNL Psychiatric: Yes: WNL Labs: CBC, BMP 10/14/16 05:43 Assessment/Plan - Problems (1) Dyspepsia Code(s): K30 - FUNCTIONAL DYSPEPSIA (2) Hyperbilirubinemia Code(s): E80.6 - OTHER DISORDERS OF BILIRUBIN METABOLISM (3) Hyperlipidemia Code(s): E78.5 - HYPERLIPIDEMIA, UNSPECIFIED (4) Hypertension Code(s): I10 - ESSENTIAL (PRIMARY) HYPERTENSION (5) Peripheral neuropathy Code(s): G62.9 - POLYNEUROPATHY, UNSPECIFIED (6) Status post THR (total hip replacement) Code(s): Z96.649 - PRESENCE OF UNSPECIFIED ARTIFICIAL HIP JOINT (7) Postoperative abdominal pain Code(s): R10.9 - UNSPECIFIED ABDOMINAL PAIN G89.18 - OTHER ACUTE POSTPROCEDURAL PAIN (8) Hypokalemia Assessment/Plan: K+ now 3.7; keep 4-4.5 (hx NSVT, severe systolic LV dysfunction). Add magnesium oxid3 400 mg bid; keep Mg (now 1.9) at 2-2.3. Keep PO4>2.5-3.0. Code(s): E87.6 - HYPOKALEMIA (9) Lower extremity edema Code(s): R60.0 - LOCALIZED EDEMA (10) Cigarette nicotine dependence Code(s): F17.210 - NICOTINE DEPENDENCE, CIGARETTES, UNCOMPLICATED (11) Coronary artery disease Code(s): I25.10 - ATHSCL HEART DISEASE OF [place] CORONARY ARTERY W/O ANG PCTRS (12) Depression Code(s): F32.9 - MAJOR DEPRESSIVE DISORDER, SINGLE EPISODE, UNSPECIFIED (13) Diabetes Code(s): E11.9 - TYPE 2 DIABETES MELLITUS WITHOUT COMPLICATIONS Qualifiers: Diabetes mellitus type: type 2 Diabetes mellitus complication status: with unspecified complications Diabetes mellitus mcfp insulin use: with economics consultant use Qualified Code(s): E11.8 - Type 2 diabetes mellitus with unspecified complications; Z79.4 - FCI (current) use of insulin (14) Hypothyroidism Assessment/Plan: f/u TFTs (free T4 mildly elevated 05/2016). Code(s): E03.9 - HYPOTHYROIDISM, UNSPECIFIED (15) ICD (implantable cardioverter-defibrillator) in place Assessment/Plan: recently interrogated; occasional episodes of NSVT. Code(s): Z95.810 - PRESENCE OF AUTOMATIC (IMPLANTABLE) CARDIAC DEFIBRILLATOR (16) Acute on chronic systolic and diastolic heart failure, NYHA class 1 Assessment/Plan: On metoprolol, spironolactone, lisinopril, furosemide. F/u Is and Os, daily weight, BUN/Cr. Replete K, PO4, and Mg; keep K+ 4-4.5, Mg 2-2.3. Keep P04 >2.5. (As discussed with pharmacist, will give neutrophos 1 packet daily, and check electrolytes in am). Code(s): I50.43 - ACUTE ON CHRONIC COMBINED SYSTOLIC AND DIASTOLIC HRT FAIL (17) NSVT (nonsustained ventricular tachycardia) Code(s): I47.2 - VENTRICULAR TACHYCARDIA (18) Sleep apnea Assessment/Plan: Pt sleeps fitfully at night, then seeps hours during the day. Recommend sleep studies to r/o sleep apnea.. Code(s): G47.30 - SLEEP APNEA, UNSPECIFIED
[2016-10-14 10:11] LABS: BILIRUBIN,TOTAL 4.8 mg/dL (0.2-1.0); CALCIUM 9.3 mg/dL (8.5-10.1); COCKROFT - GAULT 60.673; CREATININE 1.2 mg/dL (0.55-1.02); MAGNESIUM 2.2 mg/dL (1.8-2.4); PHOSPHOROUS 3.9 mg/dL (2.5-4.9)
[2016-10-14] MEDS: NAPH,MB-DB/K PH,MBDB POWDER PACKET PO SCH (11:08)
[2016-10-14] MEDS: CLOPIDOGREL BISULFATE 75 MG TABLET (FP) PO SCH (11:09)
[2016-10-14] MEDS: LISINOPRIL 5 MG TABLET (FP) PO SCH (11:10)
[2016-10-14] MEDS: SPIRONOLACTONE 25 MG TABLET (FP) PO SCH (11:11)
[2016-10-14] MEDS: MAGNESIUM OXIDE 400 MG TABLET (FP) PO SCH (11:12)
[2016-10-14] MEDS: METOPROLOL SUCCINATE 100 MG TAB.SR.24H (FP) PO SCH (11:12)
[2016-10-14] MEDS: POTASSIUM CHLORIDE TABS 20 MEQ TABLET.ER (FP) PO SCH (11:13)
[2016-10-14] MEDS: ALBUTEROL SO4 2.5/IPRATROPIUM 0.5 INH SOL 3 ML VIAL.NEB. NEB PRN (11:25)
--- NOTE | 2016-10-14 17:18 | PN ---
Physical Exam: SUBJECTIVE: Patient seen and examined Patient is feeling nauseas, Was found to have low blood sugar given orange juice. c/o having midepigastric pain. OBJECTIVE: Vital Signs Temperature 97.9 F 10/14/16 14:00 Pulse Rate 65 10/14/16 14:00 Respiratory Rate 20 10/14/16 14:00 Blood Pressure 125/79 10/14/16 14:00 O2 Sat by Pulse Oximetry (%) 100 10/14/16 08:50 GENERAL: The patient is awake, alert, and fully oriented, in no acute distress. HEAD: Normal with no signs of trauma. EYES: PERRL, extraocular movements intact, sclera anicteric, conjunctiva clear. No ptosis. ENT: Ears normal, oropharynx clear without exudates, moist mucous membranes. NECK: Trachea midline, full range of motion, supple. LUNGS: decreased Breath sounds at the basis , no wheezes, no crackles, no accessory muscle use. HEART: RRR, S1, S2 positive, Sandy 3/6, positive for defibrillator ABDOMEN: Soft, large abdomen, nontender, nondistended, normoactive bowel sounds , no guarding, no rebound, no hepatosplenomegaly, no masses appreciated EXTREMITIES: 2+ pulses, warm, well-perfused, edema 2 plus. NEUROLOGICAL: Cranial nerves II through XII grossly intact. Normal speech. PSYCH: Normal mood, normal affect. SKIN: Warm, dry, normal turgor, no rashes or lesions noted CBCD WBC 6.2 K/mm3 (4.0-10.0) 10/14/16 05:43 RBC 4.85 M/mm3 (3.60-5.2) 10/14/16 05:43 Hgb 12.6 GM/dL (10.7-15.3) 10/14/16 05:43 Hct 41.1 % (32.4-45.2) 10/14/16 05:43 MCV 84.8 fl (80-96) 10/14/16 05:43 MCHC 30.7 g/dl (32.0-36.0) L 10/14/16 05:43 RDW 23.8 % (11.6-15.6) H 10/14/16 05:43 Plt Count 169 K/MM3 (134-434) 10/14/16 05:43 MPV 9.8 fl (7.5-11.1) 10/14/16 05:43 CMP Sodium 137 mmol/L (136-145) 10/14/16 05:43 Potassium 4.9 mmol/L (3.5-5.1) D 10/14/16 05:43 Chloride 97 mmol/L (98-107) L 10/14/16 05:43 Carbon Dioxide 28 mmol/L (21-32) 10/14/16 05:43 Anion Gap 12 (8-16) 10/14/16 05:43 BUN 24 mg/dL (7-18) H D 10/14/16 05:43 Creatinine 1.2 mg/dL (0.55-1.02) H D 10/14/16 05:43 Creat Clearance w eGFR 45.37 (>60) 10/14/16 05:43 Random Glucose 71 mg/dL (74-106) L 10/14/16 05:43 Calcium 9.3 mg/dL (8.5-10.1) 10/14/16 05:43 Total Bilirubin 4.8 mg/dL (0.2-1.0) H 10/14/16 05:43 AST 34 U/L (15-37) 10/14/16 05:43 ALT 27 U/L (12-78) 10/14/16 05:43 Alkaline Phosphatase 152 U/L (45-117) H 10/14/16 05:43 Total Protein 7.0 g/dl (6.4-8.2) 10/14/16 05:43 Albumin 3.0 g/dl (3.4-5.0) L 10/14/16 05:43 CARDIAC ENZYMES Creatine Kinase 138 IU/L (26-192) 10/12/16 05:35 Troponin I 0.11 ng/ml (0.00-0.05) H 10/13/16 17:30 Home Medications Medication Instructions Recorded Calamine 8% Topical Lotion - 1 applic TP BID PRN #0 bottle 08/04/16 Clopidogrel Bisulfate [Plavix -] 75 mg PO DAILY #30 tablet 08/04/16 Levothyroxine [Synthroid -] 75 mcg PO DAILY #30 tab 08/04/16 Mineral Oil/Petrolat,Wht/Water 1 applic TP DAILY PRN #0 jar 08/04/16 [Eucerin (Large Jar) -] Spironolactone 50 mg PO DAILY #30 tablet 08/04/16 Furosemide [Lasix -] 80 mg PO BID #60 tablet 08/27/16 Metoprolol Succinate [Toprol Xl] 100 mg PO DAILY #30 tab.er.24h 08/27/16 Potassium Chloride 20 meq PO DAILY #30 tab 08/27/16 Atorvastatin Ca [Lipitor] 20 mg PO HS 09/08/16 Lisinopril [Prinivil] 5 mg PO DAILY #30 tablet 09/14/16 Active Medications Generic Name Dose Route Start Last Admin Trade Name Freq PRN Reason Stop Dose Admin Albuterol/Ipratropium 1 amp 10/11/16 20:47 10/14/16 11:25 Duoneb - NEB 1 amp Q4H PRN Administration SHORTNESS OF BREATH Atorvastatin Calcium 20 mg 10/11/16 22:00 10/13/16 21:50 Lipitor - PO 20 mg HS [facility] Administration Clopidogrel Bisulfate 75 mg 10/12/16 10:00 10/14/16 11:09 Plavix - PO 75 mg DAILY [facility] Administration Furosemide 40 mg 10/12/16 06:00 10/14/16 14:21 Lasix Injection - IVPUSH 40 mg BID@0600,1400 [facility] Administration Heparin Sodium (Porcine) 5,000 unit 10/11/16 22:00 10/14/16 14:27 Heparin - SQ Not Given TID [facility] Insulin Aspart 1 vial 10/11/16 22:00 10/14/16 14:03 Novolog Vial Sliding Scale - SQ Not Given ACHS [facility] Protocol Levothyroxine Sodium 75 mcg 10/12/16 07:00 10/14/16 06:17 Synthroid - PO 75 mcg DAILY@0700 [facility] Administration Lisinopril 5 mg 10/12/16 10:00 10/14/16 11:10 Prinivil PO 5 mg DAILY [facility] Administration Magnesium Oxide 400 mg 10/13/16 10:30 10/14/16 11:12 Mag-Ox - PO 400 mg BID [facility] Administration Metoprolol Succinate 100 mg 10/12/16 10:00 10/14/16 11:12 Toprol Xl - PO 100 mg DAILY [facility] Administration Potassium Chloride 40 meq 10/12/16 10:00 10/14/16 11:13 K-Dur - PO 40 meq will hold DAILY [facility] Administration Potassium Phos/Sodium Phos 1 packet 10/13/16 16:00 10/14/16 11:08 Phos-Nak Packet - PO 1 packet will hold DAILY [facility] Administration Spironolactone 50 mg 10/12/16 10:00 10/14/16 11:11 Aldactone - PO 50 mg DAILY [facility] Administration Tramadol HCl 50 mg 10/14/16 03:44 10/14/16 04:28 Ultram - PO 50 mg reduce the dose Q4H PRN Administration PAIN LEVEL 6-10 ASSESSMENT/PLAN: Patient is a 61 year old female non complaint patient presented with hx of HTN , HLD, DM, CAD s/p HI 2003, CABG in 2003 s/p stents2, Systolic CHF s/p ICD/ Pacemaker, COPD, current smoker, hypothyroid & peripheral neuropathy presented to The ED with complaint of worsening shortness of breath. #Acute over chronic systolic CHF exacerbation due to noncompliance on IV lasix 40mg bid, will hold potassium, kphos and mag since they are on the normal range for now, will repeat the levels in am. continue tele. patient continues to have swelling of lower extremities 2 plus, Can't increase Lasix due to running her BP on a low side. Continue IV Lasix 40 mg BID , Resume Spironolactone 50 mg PO daily , Daily weights Is and Os, Cardiology consult Dr Cage. Monitor electrolytes. # CAD- status post HI and CABG in 2003 (stents2) continue Plavix 75mg po daily # DM Novolog sliding scale with coverage # HTN Metoprolol Succinate 100 mg PO daily, Lisinopril 5mg PO daily # HLD Resume Lipitor 20 mg QHS # Hypothyroidism Resume Synthroid 75 mcg po daily # Hypokalemia 40meq Kcl PO # COPD continue Duoneb prn DVT Px: Heparin sq Visit type - Emergency Visit Emergency Visit: Yes ED Registration Date: 10/11/16 Care time: The patient presented to the Emergency Department on the above date and was hospitalized for further evaluation of their emergent condition. - New Patient This patient is new to me today: No - Critical Care Critical Care patient: No
[2016-10-14] MEDS: ATORVASTATIN CA 20 MG TABLET (FP) PO SCH (22:22)
[2016-10-15] MEDS ORDERED: DEXTROSE 50%-WATER 50 ML VIAL IVPUSH ONE (06:32)
[2016-10-15] MEDS: INSULIN SLIDING SCALE (NOVOLOG) 1 VIAL SQ SCH ×4 (06:40→21:52)
[2016-10-15] MEDS: HEPARIN NA (PORCINE) 5,000 UNITS/ML 1ML VIAL SQ SCH ×3 (06:41→22:04)
[2016-10-15] MEDS: LEVOTHYROXINE NA 75 MCG TABLET (FP) PO SCH (06:41)
[2016-10-15] MEDS: FUROSEMIDE 40 MG/4 ML INJECTABLE VIAL IVPUSH SCH ×2 (06:41→16:42)
--- NOTE | 2016-10-15 07:58 | PN ---
Physical Exam: SUBJECTIVE: Patient seen and examined at bed side this morning. She was short of breath and was complaining of B/L lower extremity pain that started this morning. Denies chest pain, cough, palpitation, abdominal pain, nausea or vomiting. Patient had just voided and the color of the urine looked dark and fowl smelling. Vitals were taken at bed side: Temp: 99F oral and rectal temp 101 F; 121/73 mmHg ; 90 bpm; RR- 22. OBJECTIVE: Vital Signs Period Temp Pulse Resp BP Sys/Santoor Pulse Ox Last 24 Hr 96.4 F-98.0 F 50-66 18-20 97-140/57-79 98-100 GENERAL: Awake, alert, and fully oriented, in mild respiratory distress, on venti mask. HEAD: Normal with no signs of trauma. EYES: EOM intact, no pallor or icterus. EARS, NOSE, THROAT: Ears normal. Moist mucous membranes. NECK: Normal range of motion, supple without lymphadenopathy,, or masses. elevated JVD LUNGS: B/L equal air entry, decreased breath sounds at the b/l bases.No wheezes. No accessory muscle use. HEART: Regular rate and rhythm, normal S1 and S2 with pansystolic and early diastolic murmur. Positive hepatojugular reflex ABDOMEN: Soft, tenderness over the left lower quadrant, distended, normoactive bowel sounds, no guarding, no rebound, no masses. No hepatomegaly or splenomegaly. MUSCULOSKELETAL: Normal range of motion at all joints. No bony deformities or tenderness. No CVA tenderness. UPPER EXTREMITIES: 2+ pulses, warm, well-perfused. No cyanosis. No clubbing. No peripheral edema. LOWER EXTREMITIES: 2+ pulses, warm, well-perfused. No calf tenderness. peripheral edema 2+ upto mid thigh. Tenderness to light touch NEUROLOGICAL: Cranial nerves II-XII intact. Normal speech. Gait not observed PSYCHIATRIC: Cooperative. Good eye contact. Appropriate mood and affect. SKIN: Warm, dry, normal turgor, no rashes or lesions noted, normal capillary refill. Laboratory Results - last 24 hr 10/14/16 10/14/16 10/14/16 05:43 05:43 12:22 WBC 6.2 RBC 4.85 Hgb 12.6 Hct 41.1 MCV 84.8 MCHC 30.7 L RDW 23.8 H Plt Count 169 MPV 9.8 Sodium 137 Potassium 4.9 D Chloride 97 L Carbon Dioxide 28 Anion Gap 12 BUN 24 H D Creatinine 1.2 H D Creat Clearance w eGFR 45.37 POC Glucometer 139 Random Glucose 71 L Calcium 9.3 Phosphorus 3.9 D Magnesium 2.2 Total Bilirubin 4.8 H AST 34 ALT 27 Alkaline Phosphatase 152 H Total Protein 7.0 Albumin 3.0 L 10/14/16 10/14/16 10/14/16 17:22 18:54 22:16 WBC RBC Hgb Hct MCV MCHC RDW Plt Count MPV Sodium Potassium Chloride Carbon Dioxide Anion Gap BUN Creatinine Creat Clearance w eGFR POC Glucometer 69 68 70 Random Glucose Calcium Phosphorus Magnesium Total Bilirubin AST ALT Alkaline Phosphatase Total Protein Albumin 10/15/16 10/15/16 05:57 07:05 WBC RBC Hgb Hct MCV MCHC RDW Plt Count MPV Sodium Potassium Chloride Carbon Dioxide Anion Gap BUN Creatinine Creat Clearance w eGFR POC Glucometer 51 92 Random Glucose Calcium Phosphorus Magnesium Total Bilirubin AST ALT Alkaline Phosphatase Total Protein Albumin Active Medications Generic Name Dose Route Start Last Admin Trade Name Freq PRN Reason Stop Dose Admin Albuterol/Ipratropium 1 amp 10/11/16 20:47 10/14/16 11:25 Duoneb - NEB 1 amp Q4H PRN Administration SHORTNESS OF BREATH Atorvastatin Calcium 20 mg 10/11/16 22:00 10/14/16 22:22 Lipitor - PO 20 mg HS [facility] Administration Clopidogrel Bisulfate 75 mg 10/12/16 10:00 10/14/16 11:09 Plavix - PO 75 mg DAILY [facility] Administration Furosemide 40 mg 10/12/16 06:00 10/15/16 06:41 Lasix Injection - IVPUSH 40 mg BID@0600,1400 [facility] Administration Heparin Sodium (Porcine) 5,000 unit 10/11/16 22:00 10/15/16 06:41 Heparin - SQ Not Given TID [facility] Dextrose 1,000 mls @ 20 mls/hr 10/15/16 07:45 D10w - IV ASDIR [facility] Insulin Aspart 1 vial 10/11/16 22:00 10/15/16 06:40 Novolog Vial Sliding Scale - SQ Not Given ACHS [facility] Protocol Levothyroxine Sodium 75 mcg 10/12/16 07:00 10/15/16 06:41 Synthroid - PO 75 mcg DAILY@0700 [facility] Administration Lisinopril 5 mg 10/12/16 10:00 10/14/16 11:10 Prinivil PO 5 mg DAILY [facility] Administration Metoclopramide HCl 10 mg 10/14/16 23:07 Reglan Injection - IVPUSH Q6H PRN NAUSEA AND/OR VOMITING Metoprolol Succinate 100 mg 10/12/16 10:00 10/14/16 11:12 Toprol Xl - PO 100 mg DAILY [facility] Administration Spironolactone 50 mg 10/12/16 10:00 10/14/16 11:11 Aldactone - PO 50 mg DAILY [facility] Administration Tramadol HCl 25 mg 10/14/16 18:10 10/15/16 07:11 Ultram - PO 25 mg Q6H PRN Administration PAIN LEVEL 6-10 CXR 10/12/16: Cardiomegaly and mild congestion. 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 # Sepsis- Unknown Etiology R/o Abdominal vs urinary source This morning, patient had shortness of breath, was tachycardic, tachypneic Rectal temp of 101 F-102F Labs ordered: Blood culture, urine culture, UA, CXR stat, ABG CXR: NO infiltrates, rest of the labs are pending ABG showed: Metabolic acidosis without respiratory compensation. Leukocytosis of 12 IV Zosyn once prophylactically and IV Vancomycin once ID consult appreciated CT abdomen/Pelvis ordered GI consult requested # LIANNA likely prerenal. creatine 1.2--->1.6 Cannot give IV fluids as patient has fluid overload-anasarca due to CHF Avoid Nephrotoxic drugs # CHF exacerbation Has developed anasarca Admitted in Telemetry Continuous Cardiac monitoring, no acute events noted in the monitor. Strict Intake and output Daily Weight, 183lbs--->176 lbs BNP on admission: 1874 Continue Spironolactone 50 mg PO Daily Continue Lasix IV 40mg BID Cardiology consult appreciated CXR showed cardiomegaly and mild congestion 07/10/16 ECHO: Left ventricle is severely dilated. Moderate concentric left ventricular hypertrophy. Left ventricular systolic function is severely reduced. Right ventricle is moderately dilated. Right ventricular systolic function is moderate to severely reduced. Left atrium and right atrium is moderately dilated. Moderate MR. Moderate to severe Tricuspid regurgigation. Right ventricular systolic pressure elevated at 30-40mmHg. Mild # Increased troponin: likely from Demand ischemia Troponin 0.13--->0.12 ---> 0.12--->0.11 trending down EKG: no acute changes on admission. # Hypokalemia with hypomagnesemia- Resolved. Resolved after repletion # Non compliance Patient has visited [facility] 8 times this year, goes to [facility] and other hospitals frequently, was recently discharged from [place] (last week) as per patients daughter. Patient is non compliant to medication at home and refuses medications here at the hospital. Needs constant counseling and family support or else patients medical condition will get worse due to non compliance. # Hypertension-Stable Metoprolol Succinate 100 mg PO DAILY Lisinopril 5mg po daily # Hyperlipidemia Continue Lipitor 20mg PO HS # DM HbA1c on 08/04- 6.6 Finger stick glucose monitoring Insulin sliding scale # CAD s/p [place] 2003, CABG in 2003 s/p stents2 Continue Plavix 75mg po daily # COPD: Not in exacerbation Duoneb PRN # Hypothyroidism TSH-0.25 08/23/16 Continue Synthoid 75mcg po daily # Chronic Elevated liver enzymes with Hyperbilirubinemia Has done work up in the past. ALP 142--->177, Bilirubin 4.8 ---->4.9 Avoid hepatotoxic drugs. # FEN Not on IV Fluids Electrolytes to be repeated tomorrow morning. Cardiac diet, Low Na diet # Prophylaxis For DVT: Heparin SQ For GI: Not indicated # Disposition: Admit to Telemetry. Duration of stay unknown. Illness, Investigation and Plan of care explained to the patient. She verbalized understanding. Case seen and discussed with Dr. Elizabeth. Visit type - Emergency Visit Emergency Visit: Yes ED Registration Date: 10/11/16 Care time: The patient presented to the Emergency Department on the above date and was hospitalized for further evaluation of their emergent condition. - New Patient This patient is new to me today: No - Critical Care Critical Care patient: No - Discharge Referral Referred to [facility] Med P.C.: No
[2016-10-15] MEDS: DEXTROSE 10%-WATER - 1,000 ML IV SCH (08:00)
[2016-10-15 08:07] LABS: ALLENS TEST POSITIVE; ART PUNCT SITE RIGHT BRACHIAL; ARTERIAL BLD GAS O2 SATURATION 98.8 % (90-98.9); ARTERIAL BLOOD GAS BASE EXCESS -11.5 meq/l (-2-2); ARTERIAL BLOOD GAS HCO3 12.6 meq/L (22-26)
[2016-10-15 08:08] LABS: LPM/O2% 50%; PT. ON O2? YES; TYPE OF O2 VENTIMASK
[2016-10-15 08:09] LABS: ARTERIAL BLOOD GAS pH 7.33 (7.35-7.45)
[2016-10-15 08:57] LABS: ALBUMIN 3.3 g/dl (3.4-5.0); BILIRUBIN,TOTAL 4.9 mg/dL (0.2-1.0); CALCIUM 9.6 mg/dL (8.5-10.1); COCKROFT - GAULT 45.509; CREATININE 1.6 mg/dL (0.55-1.02); TOT PROT 7.8 g/dl (6.4-8.2)
--- NOTE | 2016-10-15 09:15 | PN ---
Progress Note, Physician Chief Complaint: c/o sob History of Present Illness: The patient is a 61 year old black female, with a significant past medical history of hypertension, hyperlipidemia, Dm, CAD s/p defibrillator/pacemaker s/ p CABG, [place], severe systolic CHF, hypothyroidism, kidney stones, peripheral neuropathy, anxiety/depression, who presents to the emergency department from the office of Dr. San at the liver transplant center at [facility], a week after being discharged (ED visit on 10/04/16) for worsening shortness of breath and lower extremity edema today. The patient reports exertional SOB. She states she can walk for a few minutes, but states she has to sit and rest secondary to her dyspnea. She states her lower extremities are more swollen today, but admits to taking her medications today. She also reports diffuse abdominal discomfort today. She states she recently changed her PMD, but denies having made an appointment to meet the new PMD, Dr. Rueda. As per discharge summary from Dr. San, the patient was being seen for hepatomegaly to evaluate for autoimmune hepatitis. The patient is not currently on medication for her liver. She denies chest pain, headache and dizziness. She denies fever, chills, nausea , vomit, diarrhea and constipation. She denies dysuria, frequency, urgency and hematuria. Allergies: aspirin Past surgical history: PEG tube placement, Stents x2, CABG (2003), ICD/ Pacemaker (November), cholecystectomy (April 2016) Social history: current everyday tobacco use (3 cigarettes daily). Denies alcohol or drug use PCP - Dr. Parrish Ferrer/ Dr. 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 - Current Medication List Current Medications: Active Medications Albuterol/Ipratropium (Duoneb -) 1 amp NEB Q4H PRN PRN Reason: SHORTNESS OF BREATH Last Admin: 10/14/16 11:25 Dose: 1 amp Atorvastatin Calcium (Lipitor -) 20 mg PO HS [facility] Last Admin: 10/14/16 22:22 Dose: 20 mg Clopidogrel Bisulfate (Plavix -) 75 mg PO DAILY [facility] Last Admin: 10/14/16 11:09 Dose: 75 mg Furosemide (Lasix Injection -) 40 mg IVPUSH BID@0600,1400 [facility] Last Admin: 10/15/16 06:41 Dose: 40 mg Heparin Sodium (Porcine) (Heparin -) 5,000 unit SQ TID [facility] Last Admin: 10/15/16 06:41 Dose: Not Given Dextrose (D10w -) 1,000 mls @ 20 mls/hr IV ASDIR [facility] Last Admin: 10/15/16 08:00 Dose: 20 mls/hr Insulin Aspart (Novolog Vial Sliding Scale -) 1 vial SQ ACHS [facility] PRN Reason: Protocol Last Admin: 10/15/16 06:40 Dose: Not Given Levothyroxine Sodium (Synthroid -) 75 mcg PO DAILY@0700 [facility] Last Admin: 10/15/16 06:41 Dose: 75 mcg Lisinopril (Prinivil) 5 mg PO DAILY [facility] Last Admin: 10/14/16 11:10 Dose: 5 mg Metoclopramide HCl (Reglan Injection -) 10 mg IVPUSH Q6H PRN PRN Reason: NAUSEA AND/OR VOMITING Metoprolol Succinate (Toprol Xl -) 100 mg PO DAILY [facility] Last Admin: 10/14/16 11:12 Dose: 100 mg Spironolactone (Aldactone -) 50 mg PO DAILY [facility] Last Admin: 10/14/16 11:11 Dose: 50 mg Tramadol HCl (Ultram -) 25 mg PO Q6H PRN PRN Reason: PAIN LEVEL 6-10 Last Admin: 10/15/16 07:11 Dose: 25 mg - Objective Vital Signs: Vital Signs Temperature 96.4 F L 10/15/16 06:28 Pulse Rate 64 10/15/16 08:30 Respiratory Rate 20 10/15/16 08:30 Blood Pressure 100/52 10/15/16 08:30 O2 Sat by Pulse Oximetry (%) 98 10/14/16 22:00 Eyes: Yes: WNL, Conjunctiva Clear, EOM Intact HENT: Yes: WNL, Atraumatic, Normocephalic Neck: Yes: WNL, Supple, Trachea Midline Cardiovascular: Yes: WNL, Regular Rate and Rhythm Respiratory: Yes: Diminished, Dullness Gastrointestinal: Yes: WNL, Normal Bowel Sounds Genitourinary: Yes: WNL Musculoskeletal: Yes: WNL Extremities: Yes: WNL Edema: Yes Integumentary: Yes: WNL Neurological: Yes: WNL, Alert, Oriented ...Motor Strength: WNL Psychiatric: Yes: WNL Labs: CBC, BMP 10/15/16 08:05 Laboratory Results - last 24 hr 10/14/16 10/14/16 10/14/16 05:43 12:22 17:22 Puncture Site ABG pH ABG pCO2 at Pt Temp ABG pO2 at Pt Temp ABG HCO3 ABG O2 Sat (Measured) ABG O2 Content ABG Base Excess Eduar Test O2 Delivery Device Oxygen Flow Rate PEEP Sodium 137 Potassium 4.9 D Chloride 97 L Carbon Dioxide 28 Anion Gap 12 BUN 24 H D Creatinine 1.2 H D Creat Clearance w eGFR 45.37 POC Glucometer 139 69 Random Glucose 71 L Calcium 9.3 Phosphorus 3.9 D Magnesium 2.2 Total Bilirubin 4.8 H AST 34 ALT 27 Alkaline Phosphatase 152 H Total Protein 7.0 Albumin 3.0 L 10/14/16 10/14/16 10/15/16 18:54 22:16 05:57 Puncture Site ABG pH ABG pCO2 at Pt Temp ABG pO2 at Pt Temp ABG HCO3 ABG O2 Sat (Measured) ABG O2 Content ABG Base Excess Eduar Test O2 Delivery Device Oxygen Flow Rate PEEP Sodium Potassium Chloride Carbon Dioxide Anion Gap BUN Creatinine Creat Clearance w eGFR POC Glucometer 68 70 51 Random Glucose Calcium Phosphorus Magnesium Total Bilirubin AST ALT Alkaline Phosphatase Total Protein Albumin 10/15/16 10/15/16 10/15/16 07:05 08:00 08:05 Puncture Site Right brachial ABG pH 7.33 L ABG pCO2 at Pt Temp 24.7 L D ABG pO2 at Pt Temp 129.0 H D ABG HCO3 12.6 L* ABG O2 Sat (Measured) 98.8 ABG O2 Content 18.8 ABG Base Excess -11.5 L* Eduar Test Positive O2 Delivery Device Ventimask Oxygen Flow Rate 50% PEEP 0.0 Sodium 136 Potassium 4.8 Chloride 95 L Carbon Dioxide 25 Anion Gap 16 BUN 28 H Creatinine 1.6 H D Creat Clearance w eGFR 32.55 POC Glucometer 92 Random Glucose 91 D Calcium 9.6 Phosphorus Magnesium Total Bilirubin 4.9 H AST 45 H D ALT 32 Alkaline Phosphatase 177 H Total Protein 7.8 Albumin 3.3 L Assessment/Plan - Problems (1) Dyspepsia Code(s): K30 - FUNCTIONAL DYSPEPSIA (2) Hyperbilirubinemia Code(s): E80.6 - OTHER DISORDERS OF BILIRUBIN METABOLISM (3) Hyperlipidemia Code(s): E78.5 - HYPERLIPIDEMIA, UNSPECIFIED (4) Hypertension Code(s): I10 - ESSENTIAL (PRIMARY) HYPERTENSION (5) Peripheral neuropathy Code(s): G62.9 - POLYNEUROPATHY, UNSPECIFIED (6) Status post THR (total hip replacement) Code(s): Z96.649 - PRESENCE OF UNSPECIFIED ARTIFICIAL HIP JOINT (7) Postoperative abdominal pain Code(s): R10.9 - UNSPECIFIED ABDOMINAL PAIN G89.18 - OTHER ACUTE POSTPROCEDURAL PAIN (8) Hypokalemia Assessment/Plan: K+ now 3.7; keep 4-4.5 (hx NSVT, severe systolic LV dysfunction). Add magnesium oxid3 400 mg bid; keep Mg (now 1.9) at 2-2.3. Keep PO4>2.5-3.0. Code(s): E87.6 - HYPOKALEMIA (9) Lower extremity edema Code(s): R60.0 - LOCALIZED EDEMA (10) Cigarette nicotine dependence Code(s): F17.210 - NICOTINE DEPENDENCE, CIGARETTES, UNCOMPLICATED (11) Coronary artery disease Code(s): I25.10 - ATHSCL HEART DISEASE OF [place] CORONARY ARTERY W/O ANG PCTRS (12) Depression Code(s): F32.9 - MAJOR DEPRESSIVE DISORDER, SINGLE EPISODE, UNSPECIFIED (13) Diabetes Code(s): E11.9 - TYPE 2 DIABETES MELLITUS WITHOUT COMPLICATIONS Qualifiers: Diabetes mellitus type: type 2 Diabetes mellitus complication status: with unspecified complications Diabetes mellitus ad terminal makeup operator insulin use: with ad terminal makeup operator use Qualified Code(s): E11.8 - Type 2 diabetes mellitus with unspecified complications; Z79.4 - manager intermediate (current) use of insulin (14) Hypothyroidism Assessment/Plan: f/u TFTs (free T4 mildly elevated 05/2016). Code(s): E03.9 - HYPOTHYROIDISM, UNSPECIFIED (15) ICD (implantable cardioverter-defibrillator) in place Assessment/Plan: recently interrogated; occasional episodes of NSVT. Code(s): Z95.810 - PRESENCE OF AUTOMATIC (IMPLANTABLE) CARDIAC DEFIBRILLATOR (16) Acute on chronic systolic and diastolic heart failure, NYHA class 1 Assessment/Plan: On metoprolol, spironolactone, lisinopril, furosemide. F/u Is and Os, daily weight, BUN/Cr. Replete K, PO4, and Mg; keep K+ 4-4.5, Mg 2-2.3. Keep P04 >2.5. (As discussed with pharmacist, will give neutrophos 1 packet daily, and check electrolytes in am). Code(s): I50.43 - ACUTE ON CHRONIC COMBINED SYSTOLIC AND DIASTOLIC HRT FAIL (17) NSVT (nonsustained ventricular tachycardia) Code(s): I47.2 - VENTRICULAR TACHYCARDIA (18) Sleep apnea Assessment/Plan: Pt sleeps fitfully at night, then seeps hours during the day. Recommend sleep studies to r/o sleep apnea.. Code(s): G47.30 - SLEEP APNEA, UNSPECIFIED sepsis decompensate chf agree with abx IV lasix will f/u
--- NOTE | 2016-10-15 09:58 | PN ---
Teaching Attending Note Name of Resident: Caty Jarrett ATTENDING PHYSICIAN STATEMENT I saw and evaluated the patient. I reviewed the resident's note and discussed the case with the resident. I agree with the resident's findings and plan as documented. SUBJECTIVE: Was called by the nurse that the patient has a rectal temp. of 102. with low blood sugar. Started the patient at 20cc/hr D10%. C/o being so cold the extremities and having labored breathing. OBJECTIVE: Vital Signs Temperature 96.4 F L 10/15/16 06:28 Pulse Rate 64 10/15/16 08:30 Respiratory Rate 20 10/15/16 08:30 Blood Pressure 100/52 10/15/16 08:30 O2 Sat by Pulse Oximetry (%) 98 10/14/16 22:00 CBCD WBC 12.0 K/mm3 (4.0-10.0) H D 10/15/16 08:05 RBC 5.24 M/mm3 (3.60-5.2) H 10/15/16 08:05 Hgb 13.5 GM/dL (10.7-15.3) 10/15/16 08:05 Hct 46.2 % (32.4-45.2) H 10/15/16 08:05 MCV 88.2 fl (80-96) 10/15/16 08:05 MCHC 29.2 g/dl (32.0-36.0) L 10/15/16 08:05 RDW 24.2 % (11.6-15.6) H 10/15/16 08:05 Plt Count 195 K/MM3 (134-434) 10/15/16 08:05 MPV 9.3 fl (7.5-11.1) 10/15/16 08:05 CMP Sodium 136 mmol/L (136-145) 10/15/16 08:05 Potassium 4.8 mmol/L (3.5-5.1) 10/15/16 08:05 Chloride 95 mmol/L (98-107) L 10/15/16 08:05 Carbon Dioxide 25 mmol/L (21-32) 10/15/16 08:05 Anion Gap 16 (8-16) 10/15/16 08:05 BUN 28 mg/dL (7-18) H 10/15/16 08:05 Creatinine 1.6 mg/dL (0.55-1.02) H D 10/15/16 08:05 Creat Clearance w eGFR 32.55 (>60) 10/15/16 08:05 Random Glucose 91 mg/dL (74-106) D 10/15/16 08:05 Calcium 9.6 mg/dL (8.5-10.1) 10/15/16 08:05 Total Bilirubin 4.9 mg/dL (0.2-1.0) H 10/15/16 08:05 AST 45 U/L (15-37) H D 10/15/16 08:05 ALT 32 U/L (12-78) 10/15/16 08:05 Alkaline Phosphatase 177 U/L (45-117) H 10/15/16 08:05 Total Protein 7.8 g/dl (6.4-8.2) 10/15/16 08:05 Albumin 3.3 g/dl (3.4-5.0) L 10/15/16 08:05 CARDIAC ENZYMES Creatine Kinase 138 IU/L (26-192) 10/12/16 05:35 Troponin I 0.11 ng/ml (0.00-0.05) H 10/13/16 17:30 Home Medications Medication Instructions Recorded Calamine 8% Topical Lotion - 1 applic TP BID PRN #0 bottle 08/04/16 Clopidogrel Bisulfate [Plavix -] 75 mg PO DAILY #30 tablet 08/04/16 Levothyroxine [Synthroid -] 75 mcg PO DAILY #30 tab 08/04/16 Mineral Oil/Petrolat,Wht/Water 1 applic TP DAILY PRN #0 jar 08/04/16 [Eucerin (Large Jar) -] Spironolactone 50 mg PO DAILY #30 tablet 08/04/16 Furosemide [Lasix -] 80 mg PO BID #60 tablet 08/27/16 Metoprolol Succinate [Toprol Xl] 100 mg PO DAILY #30 tab.er.24h 08/27/16 Potassium Chloride 20 meq PO DAILY #30 tab 08/27/16 Atorvastatin Ca [Lipitor] 20 mg PO HS 09/08/16 Lisinopril [Prinivil] 5 mg PO DAILY #30 tablet 09/14/16 Current Medications Generic Name Dose Route Start Last Admin Trade Name Freq PRN Reason Stop Dose Admin Acetaminophen 650 mg 10/15/16 10:52 10/15/16 11:03 Tylenol - PO 650 mg Q6H PRN Administration FEVER OR PAIN Albuterol/Ipratropium 1 amp 10/11/16 20:47 10/14/16 11:25 Duoneb - NEB 1 amp Q4H PRN Administration SHORTNESS OF BREATH Atorvastatin Calcium 20 mg 10/11/16 22:00 10/14/16 22:22 Lipitor - PO 20 mg HS [facility] Administration Clopidogrel Bisulfate 75 mg 10/12/16 10:00 10/14/16 11:09 Plavix - PO 75 mg DAILY [facility] Administration Furosemide 40 mg 10/12/16 06:00 10/15/16 06:41 Lasix Injection - IVPUSH 40 mg BID@0600,1400 [facility] Administration Heparin Sodium (Porcine) 5,000 unit 10/11/16 22:00 10/15/16 06:41 Heparin - SQ Not Given TID [facility] Dextrose 1,000 mls @ 20 mls/hr 10/15/16 07:45 10/15/16 08:00 D10w - IV 20 mls/hr ASDIR [facility] Administration Piperacillin Sod/Tazobactam Sod 50 mls @ 100 mls/hr 10/15/16 18:00 Zosyn 3.375gm Ivpb (Pre-Docked) IVPB Q8H-IV [facility] Protocol Insulin Aspart 1 vial 10/11/16 22:00 10/15/16 11:49 Novolog Vial Sliding Scale - SQ Not Given ACHS [facility] Protocol Levothyroxine Sodium 75 mcg 10/12/16 07:00 10/15/16 06:41 Synthroid - PO 75 mcg DAILY@0700 [facility] Administration Lisinopril 5 mg 10/12/16 10:00 10/15/16 10:24 Prinivil PO Not Given DAILY [facility] Metoclopramide HCl 10 mg 10/14/16 23:07 Reglan Injection - IVPUSH Q6H PRN NAUSEA AND/OR VOMITING Metoprolol Succinate 100 mg 10/12/16 10:00 10/15/16 10:46 Toprol Xl - PO Not Given DAILY [facility] Spironolactone 50 mg 10/12/16 10:00 10/15/16 10:23 Aldactone - PO Not Given DAILY [facility] Tramadol HCl 25 mg 10/14/16 18:10 10/15/16 07:11 Ultram - PO 25 mg Q6H PRN Administration PAIN LEVEL 6-10 Hepatic Panel Total Bilirubin 4.9 mg/dL (0.2-1.0) H 10/15/16 08:05 Direct Bilirubin 3.5 mg/dL (0.0-0.2) H 10/15/16 13:00 AST 45 U/L (15-37) H D 10/15/16 08:05 ALT 32 U/L (12-78) 10/15/16 08:05 Alkaline Phosphatase 177 U/L (45-117) H 10/15/16 08:05 Albumin 3.3 g/dl (3.4-5.0) L 10/15/16 08:05 CHEST: Labored breathing HEART: S1S2 positive, SEM3/6, No W/R/R Abdomen: soft, positive for diffuse tenderness more L>R. EXT: cool lower extremities, pulses are positive. 3plus edema with anasarca Neuro: Awake, answers to questions. ASSESSMENT AND PLAN: Patient is a 61 year old female non complaint patient presented with hx of HTN , HLD, DM, CAD s/p MA 2003, CABG in 2003 s/p stents2, Systolic CHF s/p ICD/ Pacemaker, COPD, current smoker, hypothyroid & peripheral neuropathy presented to The ED with complaint of worsening shortness of breath. # Sepsis with elevated rectal temp.panculture, CT of abdomen and pelvis most like the sourse from biliary tree or from abdomen. ID consulted IV zosyn and vanco x1 dose ordered. CT abdomen/pelvis with oral contrast. #Acute over chronic systolic CHF exacerbation due to noncompliance on IV lasix 40mg bid, will hold potassium, kphos and mag since they are on the normal range for now.swelling of lower extremities 2 plus, Can't increase Lasix due to running her BP on a low side. Continue IV Lasix 40 mg BID , Resume Spironolactone 50 mg PO daily , Daily weights Is and Os, Cardiology consult Dr Cage. Monitor electrolytes. # CAD- status post MA and CABG in 2003 (stents2) continue Plavix 75mg po daily # DM Novolog sliding scale with coverage # HTN Metoprolol Succinate 100 mg PO daily, Lisinopril 5mg PO daily # HLD Resume Lipitor 20 mg QHS # Hypothyroidism Resume Synthroid 75 mcg po daily # Hypokalemia 40meq Kcl PO # COPD continue Duoneb prn DVT Px: Heparin sq critical care time of 35 minutes
[2016-10-15] MEDS ORDERED: PIPERACILLIN/TAZOB 3.375 GM/50 ML PRE-DOCKED IVPB ONE (10:00)
[2016-10-15 10:20] LABS: BASOPHIL 0.5 % (0-2.0); MCH 25.7 pg (25.7-33.7); MCHC 29.2 g/dl (32.0-36.0); MEAN CELL VOLUME 88.2 fl (80-96); MEAN PLT VOLUME 9.3 fl (7.5-11.1); NEUTROPHILS 80.1 % (42.8-82.8); PLATELET COUNT 195 K/MM3 (134-434); RDW 24.2 % (11.6-15.6)
[2016-10-15] MEDS: SPIRONOLACTONE 25 MG TABLET (FP) PO SCH (10:23)
[2016-10-15] MEDS: LISINOPRIL 5 MG TABLET (FP) PO SCH (10:24)
--- NOTE | 2016-10-15 10:31 | PN ---
Progress Note, Physician Chief Complaint: ID Rectal temp 102 Lethargic arousable Lam inserted not much urine obtained - Current Medication List Current Medications: Active Medications Albuterol/Ipratropium (Duoneb -) 1 amp NEB Q4H PRN PRN Reason: SHORTNESS OF BREATH Last Admin: 10/14/16 11:25 Dose: 1 amp Atorvastatin Calcium (Lipitor -) 20 mg PO HS [facility] Last Admin: 10/14/16 22:22 Dose: 20 mg Clopidogrel Bisulfate (Plavix -) 75 mg PO DAILY [facility] Last Admin: 10/14/16 11:09 Dose: 75 mg Furosemide (Lasix Injection -) 40 mg IVPUSH BID@0600,1400 [facility] Last Admin: 10/15/16 06:41 Dose: 40 mg Heparin Sodium (Porcine) (Heparin -) 5,000 unit SQ TID [facility] Last Admin: 10/15/16 06:41 Dose: Not Given Dextrose (D10w -) 1,000 mls @ 20 mls/hr IV ASDIR [facility] Last Admin: 10/15/16 08:00 Dose: 20 mls/hr Insulin Aspart (Novolog Vial Sliding Scale -) 1 vial SQ ACHS [facility] PRN Reason: Protocol Last Admin: 10/15/16 06:40 Dose: Not Given Levothyroxine Sodium (Synthroid -) 75 mcg PO DAILY@0700 [facility] Last Admin: 10/15/16 06:41 Dose: 75 mcg Lisinopril (Prinivil) 5 mg PO DAILY [facility] Last Admin: 10/15/16 10:24 Dose: Not Given Metoclopramide HCl (Reglan Injection -) 10 mg IVPUSH Q6H PRN PRN Reason: NAUSEA AND/OR VOMITING Metoprolol Succinate (Toprol Xl -) 100 mg PO DAILY [facility] Last Admin: 10/14/16 11:12 Dose: 100 mg Piperacillin Sod/Tazobactam Sod (Zosyn 3.375gm Ivpb (Pre-Docked)) 3.375 gm IVPB BID [facility] PRN Reason: Protocol Spironolactone (Aldactone -) 50 mg PO DAILY [facility] Last Admin: 10/15/16 10:23 Dose: Not Given Tramadol HCl (Ultram -) 25 mg PO Q6H PRN PRN Reason: PAIN LEVEL 6-10 Last Admin: 10/15/16 07:11 Dose: 25 mg - Objective Vital Signs: Vital Signs Temperature 96.4 F L 10/15/16 06:28 Pulse Rate 64 10/15/16 08:30 Respiratory Rate 20 10/15/16 08:30 Blood Pressure 100/52 10/15/16 08:30 O2 Sat by Pulse Oximetry (%) 98 10/14/16 22:00 Constitutional: Yes: Other (Ill appearing) Neck: Yes: WNL, Supple Cardiovascular: Yes: S1, S2 Respiratory: Yes: WNL, Regular, CTA Bilaterally Gastrointestinal: Yes: Soft, Tenderness, Other (tender LLQ) Edema: Yes Labs: CBC, BMP 10/15/16 08:05 10/15/16 08:05 Problem List - Problems (1) Acute on chronic systolic and diastolic heart failure, NYHA class 1 Code(s): I50.43 - ACUTE ON CHRONIC COMBINED SYSTOLIC AND DIASTOLIC HRT FAIL (2) Sepsis Code(s): A41.9 - SEPSIS, UNSPECIFIED ORGANISM (3) Abdominal pain Code(s): R10.9 - UNSPECIFIED ABDOMINAL PAIN Assessment/Plan Microbiology Laboratory Tests 10/15/16 10/15/16 10/15/16 08:00 08:05 08:05 WBC 12.0 H D Plt Count 195 ABG pO2 at Pt Temp 129.0 H D BUN 28 H Creatinine 1.6 H D Total Bilirubin 4.9 H AST 45 H D ALT 32 Alkaline Phosphatase 177 H Assessment Sepsis syndrome source ? urinary vs intrabdominal source LLQ tender CHF anasarca Elevated LFTs Plan Panculture Lactic acid Vancomycin 1 dose now Agree with Zosyn CT abd pelvis Ismael CHAMBERS
[2016-10-15] MEDS: METOPROLOL SUCCINATE 100 MG TAB.SR.24H (FP) PO SCH (10:46)
[2016-10-15] MEDS: ACETAMINOPHEN 325 MG TABLET (FP) PO PRN (11:03)
[2016-10-15 11:19] LABS: PLATELET ESTIMATE ADEQUATE (NORMAL); POLYCHROMASIA FEW
--- NOTE | 2016-10-15 11:19 | CONS ---
DATE OF CONSULTATION: DATE OF DICTATION: 10/15/2016 This is a 61-year-old female who I am asked to see for evaluation for fever and possible sepsis. The patient was initially admitted October 11 to telemetry for management of congestiveheart failure. This 61-year-old female has a history of hypertension, hyperlipidemia, diabetes, coronary artery disease, defibrillator, pacemaker, CABG surgery, prior MT, severe systolic congestive heart failure, hypothyroidism, kidney stones, peripheral neuropathy. She has been seen by Dr. San at the [facility] at [facility] for management of autoimmune hepatitis and cirrhosis. I am asked to see her now as this morning she developed fever with hypotension with a rectal temperature of 102. The patient currently is ill-appearing and lethargic and unable to offer much by way of meaningful history. PAST MEDICAL HISTORY: As noted above. CURRENT MEDICATIONS: Lisinopril, metoprolol, albuterol, insulin, Lasix, spironolactone, Plavix, Synthroid. ALLERGIES: ASPIRIN. SOCIAL HISTORY: She admits to smoking currently. No history of substance abuse or alcohol. FAMILY HISTORY: Reviewed and noncontributory. REVIEW OF SYSTEMS: Respiratory: Mild shortness of breath. No cough, hemoptysis. Cardiac: No chest pain, palpitations, syncope. Gastrointestinal: Abdominal pain. No vomiting, diarrhea. Genitourinary: Lam catheter inserted. No urine obtained. PHYSICAL EXAMINATION: General: She was a heavyset woman, who appeared ill, lethargic, but arousable. Vital Signs: The temperature was 102, blood pressure 100/50, pulse 64. Neck: Supple. No adenopathy. Lungs: Diminished breath sounds bilaterally. Heart: S1, S2, regular rhythm without audible murmur. Abdomen: Distended. Tenderness noted on direct palpation, left lower quadrant. Extremities: Two-plus edema. White count 12,000, hemoglobin 13.5, platelets of 195. BUN 28, creatinine 1.6. Bilirubin 4.8, AST 34, alkaline phosphatase 152. Chest x-ray shows no acute infiltrate. ASSESSMENT: A 61-year-old female admitted for congestive heart failure, history of autoimmune hepatitis and cirrhosis, presents now with hypotension, lethargy, fever 102 rectally, and finding of severe tenderness on physical examination in the left lower quadrant. The possibility of intraabdominal source of infection as well as urinary tract infection is considered. She appears acutely ill and should be treated for sepsis with or without bacteremia both gram negative and gram positive She will be given 1.5 g of vancomycin, Zosyn 3.375 g q.8 hours. Blood cultures and urine cultures to be obtained and a CT scan of the abdomen and pelvis ordered. Case discussed with Dr. Villegas and the resident. NO TEAGUE M.D. [id number] MTDD
[2016-10-15 11:20] LABS: ANISOCYTOSIS 2+; MICROCYTOSIS 1+
[2016-10-15] MEDS ORDERED: VANCOMYCIN 1,500 MG in DEXTROSE 5%-WATER - 500 ML IVPB ONE (12:00)
[2016-10-15] MEDS: ALBUTEROL SO4 2.5/IPRATROPIUM 0.5 INH SOL 3 ML VIAL.NEB. NEB PRN ×2 (12:50→22:00)
[2016-10-15 13:35] LABS: BILIRUBIN,DIRECT 3.5 mg/dL (0.0-0.2)
[2016-10-15 15:28] LABS: URINE APPEARANCE CLOUDY; URINE COLOR AMBER; URINE GLUCOSE (UA) NEGATIVE (NEGATIVE); URINE KETONE NEGATIVE (NEGATIVE); URINE LEUK ESTERASE NEGATIVE (NEGATIVE); URINE NITRITE NEGATIVE (NEGATIVE); URINE UROBILINOGEN 4.0 E.U/dl E.U./dl (0.2-1.0)
[2016-10-15 15:33] LABS: URINE BLOOD 3+ (NEGATIVE); URINE PROTEIN 2+ (NEGATIVE)
[2016-10-15 15:34] LABS: GRANULAR CASTS 100 /lpf; URINE BACTERIA RARE /hpf (NONE SEEN); URINE MUCUS RARE; URINE RBC 721 /hpf (0-3); URINE WBC 66 /hpf (3-5); YEAST MODERATE
[2016-10-15] MEDS: CLOPIDOGREL BISULFATE 75 MG TABLET (FP) PO SCH (17:06)
[2016-10-15] MEDS: METOCLOPRAMIDE HCL INJECTION 10 MG/2 ML VIAL IVPUSH PRN (17:06)
[2016-10-15] MEDS: PIPERACILLIN/TAZOB 3.375 GM 50 ML IVPB SCH (17:10)
[2016-10-15] MEDS ORDERED: PIPERACILLIN/TAZOB 3.375 GM/50 ML PRE-DOCKED IVPB SCH (22:00)
[2016-10-15] MEDS: ATORVASTATIN CA 20 MG TABLET (FP) PO SCH (22:04)
[2016-10-16] MEDS: PIPERACILLIN/TAZOB 3.375 GM 50 ML IVPB SCH ×3 (03:15→17:39)
[2016-10-16] MEDS: INSULIN SLIDING SCALE (NOVOLOG) 1 VIAL SQ SCH ×4 (06:47→22:11)
[2016-10-16] MEDS: HEPARIN NA (PORCINE) 5,000 UNITS/ML 1ML VIAL SQ SCH ×3 (06:48→22:50)
[2016-10-16] MEDS: FUROSEMIDE 40 MG/4 ML INJECTABLE VIAL IVPUSH SCH ×2 (06:48→13:26)
[2016-10-16] MEDS: LEVOTHYROXINE NA 75 MCG TABLET (FP) PO SCH (06:49)
[2016-10-16 08:00] LABS: MCH 26.5 pg (25.7-33.7); MCHC 31.9 g/dl (32.0-36.0); MEAN CELL VOLUME 82.9 fl (80-96); MEAN PLT VOLUME 8.8 fl (7.5-11.1); PLATELET COUNT 176 K/MM3 (134-434); RDW 23.5 % (11.6-15.6); WHITE BLOOD COUNT 10.1 K/mm3 (4.0-10.0)
[2016-10-16 08:38] LABS: CALCIUM 9.1 mg/dL (8.5-10.1)
[2016-10-16 08:43] LABS: ALBUMIN 2.3 g/dl (3.4-5.0); BILIRUBIN,TOTAL 4.5 mg/dL (0.2-1.0); COCKROFT - GAULT 49.317; CREATININE 1.6 mg/dL (0.55-1.02); TOT PROT 5.6 g/dl (6.4-8.2)
--- NOTE | 2016-10-16 08:55 | PN ---
Progress Note, Physician Chief Complaint: feels better no c/o - Current Medication List Current Medications: Active Medications Acetaminophen (Tylenol -) 650 mg PO Q6H PRN PRN Reason: FEVER OR PAIN Last Admin: 10/15/16 11:03 Dose: 650 mg Albuterol/Ipratropium (Duoneb -) 1 amp NEB Q4H PRN PRN Reason: SHORTNESS OF BREATH Last Admin: 10/15/16 22:00 Dose: 1 amp Atorvastatin Calcium (Lipitor -) 20 mg PO HS [facility] Last Admin: 10/15/16 22:04 Dose: 20 mg Clopidogrel Bisulfate (Plavix -) 75 mg PO DAILY [facility] Last Admin: 10/15/16 17:06 Dose: 75 mg Furosemide (Lasix Injection -) 40 mg IVPUSH BID@0600,1400 [facility] Last Admin: 10/16/16 06:48 Dose: Not Given Heparin Sodium (Porcine) (Heparin -) 5,000 unit SQ TID [facility] Last Admin: 10/16/16 06:48 Dose: Not Given Dextrose (D10w -) 1,000 mls @ 20 mls/hr IV ASDIR [facility] Last Admin: 10/15/16 08:00 Dose: 20 mls/hr Piperacillin Sod/Tazobactam Sod (Zosyn 3.375gm Ivpb (Pre-Docked)) 50 mls @ 100 mls/hr IVPB Q8H-IV [facility] PRN Reason: Protocol Last Admin: 10/16/16 03:15 Dose: 100 mls/hr Insulin Aspart (Novolog Vial Sliding Scale -) 1 vial SQ ACHS [facility] PRN Reason: Protocol Last Admin: 10/16/16 06:47 Dose: Not Given Levothyroxine Sodium (Synthroid -) 75 mcg PO DAILY@0700 [facility] Last Admin: 10/16/16 06:49 Dose: 75 mcg Lisinopril (Prinivil) 5 mg PO DAILY [facility] Last Admin: 10/15/16 10:24 Dose: Not Given Metoclopramide HCl (Reglan Injection -) 10 mg IVPUSH Q6H PRN PRN Reason: NAUSEA AND/OR VOMITING Last Admin: 10/15/16 17:06 Dose: 10 mg Metoprolol Succinate (Toprol Xl -) 100 mg PO DAILY [facility] Last Admin: 10/15/16 10:46 Dose: Not Given Spironolactone (Aldactone -) 50 mg PO DAILY [facility] Last Admin: 10/15/16 10:23 Dose: Not Given Tramadol HCl (Ultram -) 25 mg PO Q6H PRN PRN Reason: PAIN LEVEL 6-10 Last Admin: 10/15/16 07:11 Dose: 25 mg - Objective Vital Signs: Vital Signs Temperature 98.1 F 10/16/16 06:00 Pulse Rate 72 10/16/16 06:00 Respiratory Rate 20 10/16/16 06:00 Blood Pressure 81/46 10/16/16 06:00 O2 Sat by Pulse Oximetry (%) 98 10/15/16 21:00 Eyes: Yes: WNL, Conjunctiva Clear, EOM Intact HENT: Yes: WNL, Atraumatic, Normocephalic Neck: Yes: WNL, Supple, Trachea Midline Cardiovascular: Yes: WNL, Regular Rate and Rhythm Respiratory: Yes: WNL, Regular, CTA Bilaterally Gastrointestinal: Yes: WNL, Normal Bowel Sounds Genitourinary: Yes: WNL Musculoskeletal: Yes: WNL Extremities: Yes: WNL Edema: No Integumentary: Yes: WNL Neurological: Yes: WNL, Alert, Oriented ...Motor Strength: WNL Psychiatric: Yes: WNL Labs: CBC, BMP 10/16/16 05:40 Assessment/Plan - Problems (1) Dyspepsia Code(s): K30 - FUNCTIONAL DYSPEPSIA (2) Hyperbilirubinemia Code(s): E80.6 - OTHER DISORDERS OF BILIRUBIN METABOLISM (3) Hyperlipidemia Code(s): E78.5 - HYPERLIPIDEMIA, UNSPECIFIED (4) Hypertension Code(s): I10 - ESSENTIAL (PRIMARY) HYPERTENSION (5) Peripheral neuropathy Code(s): G62.9 - POLYNEUROPATHY, UNSPECIFIED (6) Status post THR (total hip replacement) Code(s): Z96.649 - PRESENCE OF UNSPECIFIED ARTIFICIAL HIP JOINT (7) Postoperative abdominal pain Code(s): R10.9 - UNSPECIFIED ABDOMINAL PAIN G89.18 - OTHER ACUTE POSTPROCEDURAL PAIN (8) Hypokalemia Assessment/Plan: K+ now 3.7; keep 4-4.5 (hx NSVT, severe systolic LV dysfunction). Add magnesium oxid3 400 mg bid; keep Mg (now 1.9) at 2-2.3. Keep PO4>2.5-3.0. Code(s): E87.6 - HYPOKALEMIA (9) Lower extremity edema Code(s): R60.0 - LOCALIZED EDEMA (10) Cigarette nicotine dependence Code(s): F17.210 - NICOTINE DEPENDENCE, CIGARETTES, UNCOMPLICATED (11) Coronary artery disease Code(s): I25.10 - ATHSCL HEART DISEASE OF [place] CORONARY ARTERY W/O ANG PCTRS (12) Depression Code(s): F32.9 - MAJOR DEPRESSIVE DISORDER, SINGLE EPISODE, UNSPECIFIED (13) Diabetes Code(s): E11.9 - TYPE 2 DIABETES MELLITUS WITHOUT COMPLICATIONS Qualifiers: Diabetes mellitus type: type 2 Diabetes mellitus complication status: with unspecified complications Diabetes mellitus exterminator helper insulin use: with custodial use Qualified Code(s): E11.8 - Type 2 diabetes mellitus with unspecified complications; Z79.4 - terminal worker (current) use of insulin (14) Hypothyroidism Assessment/Plan: f/u TFTs (free T4 mildly elevated 05/2016). Code(s): E03.9 - HYPOTHYROIDISM, UNSPECIFIED (15) ICD (implantable cardioverter-defibrillator) in place Assessment/Plan: recently interrogated; occasional episodes of NSVT. Code(s): Z95.810 - PRESENCE OF AUTOMATIC (IMPLANTABLE) CARDIAC DEFIBRILLATOR (16) Acute on chronic systolic and diastolic heart failure, NYHA class 1 Assessment/Plan: On metoprolol, spironolactone, lisinopril, furosemide. F/u Is and Os, daily weight, BUN/Cr. Replete K, PO4, and Mg; keep K+ 4-4.5, Mg 2-2.3. Keep P04 >2.5. (As discussed with pharmacist, will give neutrophos 1 packet daily, and check electrolytes in am). Code(s): I50.43 - ACUTE ON CHRONIC COMBINED SYSTOLIC AND DIASTOLIC HRT FAIL (17) NSVT (nonsustained ventricular tachycardia) Code(s): I47.2 - VENTRICULAR TACHYCARDIA (18) Sleep apnea Assessment/Plan: Pt sleeps fitfully at night, then seeps hours during the day. Recommend sleep studies to r/o sleep apnea.. Code(s): G47.30 - SLEEP APNEA, UNSPECIFIED sepsis decompensate chf - resolving agree with abx IV lasix will f/u
[2016-10-16] MEDS: DEXTROSE 10%-WATER - 1,000 ML IV SCH (10:10)
[2016-10-16] MEDS: METOPROLOL SUCCINATE 100 MG TAB.SR.24H (FP) PO SCH (10:10)
[2016-10-16] MEDS: SPIRONOLACTONE 25 MG TABLET (FP) PO SCH (10:10)
[2016-10-16] MEDS: LISINOPRIL 5 MG TABLET (FP) PO SCH (10:10)
[2016-10-16] MEDS: CLOPIDOGREL BISULFATE 75 MG TABLET (FP) PO SCH (10:10)
--- NOTE | 2016-10-16 10:13 | PN ---
Progress Note (short form) - Note Progress Note: Patient is feeling better today, c/o having the moran catheter, would like it out . No fever or chills , Temperature 98.1 F 10/16/16 06:00 Pulse Rate 72 10/16/16 06:00 Respiratory Rate 20 10/16/16 06:00 Blood Pressure repeat 99/56 10/16/16 06:00 O2 Sat by Pulse Oximetry (%) 98 10/15/16 21:00 GENERAL: The patient is awake, alert, and fully oriented, in no acute distress. HEAD: Normal with no signs of trauma. EYES: PERRL, extraocular movements intact, sclera anicteric, conjunctiva clear. . ENT: Ears normal, oropharynx clear without exudates, moist mucous membranes. NECK: Trachea midline, full range of motion, supple. LUNGS: decreased Breath sounds at the basis , no wheezes, no crackles, no accessory muscle use. HEART: RRR, S1, S2 positive, Sandy 3/6, positive for defibrillator/pacemaker ABDOMEN: Soft, large abdomen, nontender, nondistended, normoactive bowel sounds , no guarding, no rebound, no hepatosplenomegaly, no masses appreciated EXTREMITIES: 2+ pulses, warm, well-perfused, edema 2 plus. NEUROLOGICAL: Cranial nerves II through XII grossly intact. Normal speech. PSYCH: Normal mood, normal affect. SKIN: Warm, dry, normal turgor, no rashes or lesions noted CBCD WBC 10.1 K/mm3 (4.0-10.0) H 10/16/16 05:40 RBC 4.48 M/mm3 (3.60-5.2) 10/16/16 05:40 Hgb 11.9 GM/dL (10.7-15.3) D 10/16/16 05:40 Hct 37.1 % (32.4-45.2) D 10/16/16 05:40 MCV 82.9 fl (80-96) 10/16/16 05:40 MCHC 31.9 g/dl (32.0-36.0) L 10/16/16 05:40 RDW 23.5 % (11.6-15.6) H 10/16/16 05:40 Plt Count 176 K/MM3 (134-434) 10/16/16 05:40 MPV 8.8 fl (7.5-11.1) 10/16/16 05:40 CMP Sodium 133 mmol/L (136-145) L 10/16/16 05:40 Potassium 4.7 mmol/L (3.5-5.1) 10/16/16 05:40 Chloride 93 mmol/L (98-107) L 10/16/16 05:40 Carbon Dioxide 29 mmol/L (21-32) 10/16/16 05:40 Anion Gap 11 (8-16) 10/16/16 05:40 BUN 32 mg/dL (7-18) H 10/16/16 05:40 Creatinine 1.6 mg/dL (0.55-1.02) H 10/16/16 05:40 Creat Clearance w eGFR 32.55 (>60) 10/16/16 05:40 Random Glucose 97 mg/dL (74-106) 10/16/16 05:40 Calcium 9.1 mg/dL (8.5-10.1) 10/16/16 05:40 Total Bilirubin 4.5 mg/dL (0.2-1.0) H 10/16/16 05:40 AST 34 U/L (15-37) D 10/16/16 05:40 ALT 22 U/L (12-78) D 10/16/16 05:40 Alkaline Phosphatase 110 U/L (45-117) D 10/16/16 05:40 Total Protein 5.6 g/dl (6.4-8.2) L D 10/16/16 05:40 Albumin 2.3 g/dl (3.4-5.0) L D 10/16/16 05:40 CARDIAC ENZYMES Creatine Kinase 138 IU/L (26-192) 10/12/16 05:35 Troponin I 0.11 ng/ml (0.00-0.05) H 10/13/16 17:30 Current Medications Generic Name Dose Route Start Last Admin Trade Name Freq PRN Reason Stop Dose Admin Acetaminophen 650 mg 10/15/16 10:52 10/15/16 11:03 Tylenol - PO 650 mg Q6H PRN Administration FEVER OR PAIN Albuterol/Ipratropium 1 amp 10/11/16 20:47 10/15/16 22:00 Duoneb - NEB 1 amp Q4H PRN Administration SHORTNESS OF BREATH Atorvastatin Calcium 20 mg 10/11/16 22:00 10/15/16 22:04 Lipitor - PO 20 mg HS [facility] Administration Clopidogrel Bisulfate 75 mg 10/12/16 10:00 10/15/16 17:06 Plavix - PO 75 mg DAILY [facility] Administration Furosemide 40 mg 10/12/16 06:00 10/16/16 06:48 Lasix Injection - IVPUSH Not Given BID@0600,1400 [facility] Heparin Sodium (Porcine) 5,000 unit 10/11/16 22:00 10/16/16 06:48 Heparin - SQ Not Given TID [facility] Dextrose 1,000 mls @ 20 mls/hr 10/15/16 07:45 10/15/16 08:00 D10w - IV 20 mls/hr ASDIR [facility] Administration Piperacillin Sod/Tazobactam Sod 50 mls @ 100 mls/hr 10/15/16 18:00 10/16/16 03: 15 Zosyn 3.375gm Ivpb (Pre-Docked) IVPB 100 mls/hr Q8H-IV [facility] Administration Protocol Insulin Aspart 1 vial 10/11/16 22:00 10/16/16 06:47 Novolog Vial Sliding Scale - SQ Not Given ACHS [facility] Protocol Levothyroxine Sodium 75 mcg 10/12/16 07:00 10/16/16 06:49 Synthroid - PO 75 mcg DAILY@0700 [facility] Administration Lisinopril 5 mg 10/12/16 10:00 10/15/16 10:24 Prinivil PO Not Given DAILY [facility] Metoclopramide HCl 10 mg 10/14/16 23:07 10/15/16 17:06 Reglan Injection - IVPUSH 10 mg Q6H PRN Administration NAUSEA AND/OR VOMITING Metoprolol Succinate 100 mg 10/12/16 10:00 10/15/16 10:46 Toprol Xl - PO Not Given DAILY [facility] Spironolactone 50 mg 10/12/16 10:00 10/15/16 10:23 Aldactone - PO Not Given DAILY [facility] Home Medications Medication Instructions Recorded Calamine 8% Topical Lotion - 1 applic TP BID PRN #0 bottle 08/04/16 Clopidogrel Bisulfate [Plavix -] 75 mg PO DAILY #30 tablet 08/04/16 Levothyroxine [Synthroid -] 75 mcg PO DAILY #30 tab 08/04/16 Mineral Oil/Petrolat,Wht/Water 1 applic TP DAILY PRN #0 jar 08/04/16 [Eucerin (Large Jar) -] Spironolactone 50 mg PO DAILY #30 tablet 08/04/16 Furosemide [Lasix -] 80 mg PO BID #60 tablet 08/27/16 Metoprolol Succinate [Toprol Xl] 100 mg PO DAILY #30 tab.er.24h 08/27/16 Potassium Chloride 20 meq PO DAILY #30 tab 08/27/16 Atorvastatin Ca [Lipitor] 20 mg PO HS 09/08/16 Lisinopril [Prinivil] 5 mg PO DAILY #30 tablet 09/14/[address] (without contrast) Clinical information: sepsis, likely GI source Multiplanar imaging was performed. As requested intravenous contrast was not administered. Oral contrast was administered. In comparison to a prior CT study of 08/22/2016 there is increased concentric subcutaneous edema along the abdomen and pelvis consistent with anasarca. Interval development of a small right pleural effusion is seen. The remainder of the study demonstrates no obvious interval change. No evidence of pneumoperitoneum or bowel obstruction. Trace ascites is again noted. Cardiomegaly. Transvenous cardiac pacemaker in place. Status post median sternotomy. Status post cholecystectomy The liver, spleen, pancreas, adrenal glands and kidneys demonstrate no obvious noncontrast abnormality. No obvious abscess is seen. There is no gross CT evidence of acute appendicitis or diverticulitis allowing for limited bowel opacification and lack of intravenous contrast as well as a paucity of intra-abdominal fat. Moderate atherosclerotic aortic dilatation without definite aneurysm formation. Prominent atherosclerotic vascular calcifications. Fibroid uterus. Moran catheter in place. Status post right hip replacement. IMPRESSION: There is limited visualization due to lack of intravenous contrast, limited bowel opacification and a paucity of intra-abdominal fat. The intraabdominal/pelvic soft tissue structures demonstrate no gross interval change in comparison to a prior CT study of 08/22/2016. Prominent concentric subcutaneous edema along the abdomen and pelvis which appears increased. A/P: Patient is a 61 year old female non complaint patient presented with hx of HTN , HLD, DM, CAD s/p PR 2003, CABG in 2003 s/p stents2, Systolic CHF s/p ICD/ Pacemaker, COPD, current smoker, hypothyroid & peripheral neuropathy presented to The ED with complaint of worsening shortness of breath. # Sepsis with unknown etiology , Gi consult , ID consulted on IV zosyn and vanco x1 dose ordered by ID. CT abdomen/pelvis with oral contrast as above the result. #Acute over chronic systolic CHF exacerbation due to noncompliance , continue IV lasix 40mg bid ,cardio on the case , will hold potassium, kphos and mag since they are on the normal range for now resume Spironolactone 50 mg PO daily , Daily weights Is and Os, monitor electrolytes. # CAD-status post PR and CABG in 2003 (stents2) continue Plavix 75mg po daily # DM Novolog sliding scale with coverage # HTN Metoprolol Succinate 100 mg PO daily, Lisinopril 5mg PO daily # HLD Resume Lipitor 20 mg QHS # Hypothyroidism Resume Synthroid 75 mcg po daily # Hypokalemia 40meq Kcl PO # COPD continue Duoneb prn DVT Px: Heparin sq Visit type - Emergency Visit Emergency Visit: Yes ED Registration Date: 10/11/16 Care time: The patient presented to the Emergency Department on the above date and was hospitalized for further evaluation of their emergent condition. - New Patient This patient is new to me today: No - Critical Care Critical Care patient: No
--- NOTE | 2016-10-16 10:57 | PN ---
Progress Note, Physician History of Present Illness: Awake, responsive C/O abdominal pain No N/V + BM Temps down- afebrile today WBC improved Blood c/s [facility] - Current Medication List Current Medications: Active Medications Acetaminophen (Tylenol -) 650 mg PO Q6H PRN PRN Reason: FEVER OR PAIN Last Admin: 10/15/16 11:03 Dose: 650 mg Albuterol/Ipratropium (Duoneb -) 1 amp NEB Q4H PRN PRN Reason: SHORTNESS OF BREATH Last Admin: 10/15/16 22:00 Dose: 1 amp Atorvastatin Calcium (Lipitor -) 20 mg PO HS [facility] Last Admin: 10/15/16 22:04 Dose: 20 mg Clopidogrel Bisulfate (Plavix -) 75 mg PO DAILY [facility] Last Admin: 10/16/16 10:10 Dose: 75 mg Furosemide (Lasix Injection -) 40 mg IVPUSH BID@0600,1400 [facility] Last Admin: 10/16/16 06:48 Dose: Not Given Heparin Sodium (Porcine) (Heparin -) 5,000 unit SQ TID [facility] Last Admin: 10/16/16 06:48 Dose: Not Given Dextrose (D10w -) 1,000 mls @ 20 mls/hr IV ASDIR [facility] Last Admin: 10/16/16 10:10 Dose: 20 mls/hr Piperacillin Sod/Tazobactam Sod (Zosyn 3.375gm Ivpb (Pre-Docked)) 50 mls @ 100 mls/hr IVPB Q8H-IV [facility] PRN Reason: Protocol Last Admin: 10/16/16 10:10 Dose: 100 mls/hr Vancomycin HCl 1,000 mg/ (Dextrose) 250 mls @ 200 mls/hr IVPB Q12H [facility] Insulin Aspart (Novolog Vial Sliding Scale -) 1 vial SQ ACHS [facility] PRN Reason: Protocol Last Admin: 10/16/16 06:47 Dose: Not Given Levothyroxine Sodium (Synthroid -) 75 mcg PO DAILY@0700 [facility] Last Admin: 10/16/16 06:49 Dose: 75 mcg Lisinopril (Prinivil) 5 mg PO DAILY [facility] Last Admin: 10/16/16 10:10 Dose: 5 mg Metoclopramide HCl (Reglan Injection -) 10 mg IVPUSH Q6H PRN PRN Reason: NAUSEA AND/OR VOMITING Last Admin: 10/15/16 17:06 Dose: 10 mg Metoprolol Succinate (Toprol Xl -) 100 mg PO DAILY [facility] Last Admin: 10/16/16 10:10 Dose: 100 mg Spironolactone (Aldactone -) 50 mg PO DAILY [facility] Last Admin: 10/16/16 10:10 Dose: 50 mg - Objective Vital Signs: Vital Signs Temperature 98.1 F 10/16/16 06:00 Pulse Rate 72 10/16/16 06:00 Respiratory Rate 20 10/16/16 06:00 Blood Pressure 81/46 10/16/16 06:00 O2 Sat by Pulse Oximetry (%) 98 10/15/16 21:00 Constitutional: Yes: No Distress Eyes: Yes: Conjunctiva Clear Cardiovascular: Yes: Regular Rate and Rhythm, Murmur, S1, S2 Respiratory: Yes: CTA Bilaterally Gastrointestinal: Yes: Normal Bowel Sounds, Soft, Tenderness (+ Periumbilical tenderness to palpatiion) Edema: Yes Labs: CBC, BMP 10/16/16 05:40 10/16/16 05:40 Assessment/Plan Streptococcal bacteremia/ sepsis- possible GI source Fever/ leukocytosis- improved Azotemia Await blood c/s Continue zosyn + vancomycin GI evaluation Echo
[2016-10-16] MEDS: VANCOMYCIN 1 GRAM (PRE-DOCKED) 250 ML IVPB SCH ×2 (13:26→23:40)
[2016-10-16 15:11] VITALS: BMI 33.9
--- NOTE | 2016-10-16 15:11 | CON.NEP ---
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 Diuresis has been attempted. She remains very edematous. Yesterday a moran catheter was inserted which has urine in it now. 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 Had PEG placed 11/03 after suffering vocal cord damage ( EMS intubation). PEG was subsequently removed. ) Hepatobiliary: Yes: Cirrhosis (cardiac cirrhosis), Cholecystitis (s/p lap choly 05/05) Renal/: Yes: Renal Calculi ...: No Psych: Yes: Depression Musculoskeletal: Yes: Chronic low back pain, Osteoarthritis Endocrine: Yes: Hypothyroidism - Past Surgical History Past Surgical History: Yes: AICD, CABG, Cholecystectomy, Colonoscopy, Joint Replacement (right THR), Stent (X2) - Alcohol/Substance Use Hx Alcohol Use: No History of Substance Use: reports: None - Smoking History Smoking history: Current some day smoker Have you smoked in the past 12 months: Yes Aproximately how many cigarettes per day: 5 - Social History Usual Living Arrangement: With Child ADL: Independent 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 History of Recent Travel: No Home Medications - Allergies Allergies/Adverse Reactions: Allergies Allergy/AdvReac Type Severity Reaction Status Date / Time aspirin Allergy Mild Rash Verified 10/11/16 15:30 banana Allergy Hives Verified 10/15/16 14:29 tomato Allergy Verified 10/15/16 14:30 - Home Medications Home Medications: Ambulatory Orders Calamine 8% Topical Lotion - 1 applic TP BID PRN #0 bottle 08/04/16 Clopidogrel Bisulfate [Plavix -] 75 mg PO DAILY #30 tablet 08/04/16 Levothyroxine [Synthroid -] 75 mcg PO DAILY #30 tab 08/04/16 Mineral Oil/Petrolat,Wht/Water [Eucerin (Large Jar) -] 1 applic TP DAILY PRN #0 jar 08/04/16 Spironolactone 50 mg PO DAILY #30 tablet 08/04/16 Furosemide [Lasix -] 80 mg PO BID #60 tablet 08/27/16 Metoprolol Succinate [Toprol Xl] 100 mg PO DAILY #30 tab.er.24h 08/27/16 Potassium Chloride 20 meq PO DAILY #30 tab 08/27/16 Atorvastatin Ca [Lipitor] 20 mg PO HS 09/08/16 Lisinopril [Prinivil] 5 mg PO DAILY #30 tablet 09/14/16 Family Disease History - Family Disease History Family Disease History: Diabetes: Sister (s/p CABG in her 50s), Heart Disease: Father (had unknown cancer), Mother (lived to ), Sister, [place]: Father Review of Systems - Review of Systems Constitutional: reports: Loss of Appetite, Weakness Eyes: reports: No Symptoms HENT: reports: No Symptoms Neck: reports: No Symptoms Cardiovascular: reports: Edema, Shortness of Breath Respiratory: reports: No Symptoms Gastrointestinal: reports: Abdominal Pain Genitourinary: reports: No Symptoms Breasts: reports: No Symptoms Reported Musculoskeletal: reports: No Symptoms Integumentary: reports: No Symptoms Neurological: reports: No Symptoms Endocrine: reports: No Symptoms Hematology/Lymphatic: reports: No Symptoms Nephrology Consult - Height Height: 5 ft 3 in - Weight Weight: 191 lb 6.4 oz - BMI Body Mass Index (BMI): 33.9 - Lab Results CBC,BMP: CBC, BMP 10/16/16 05:40 10/16/16 05:40 Anion Gap: Anion Gap Anion Gap 11 (8-16) 10/16/16 05:40 - Imaging Chest X-ray: Report Reviewed Cat Scan: Report Reviewed - Physical Examination Vital Signs: Vital Signs Temperature 97.8 F 10/16/16 10:00 Pulse Rate 73 10/16/16 10:00 Respiratory Rate 20 10/16/16 10:00 Blood Pressure 99/51 10/16/16 10:00 O2 Sat by Pulse Oximetry (%) 98 10/16/16 10:00 Constitutional: Yes: Well Nourished, Anxious, Mild Distress, Other (appears chronically ill) Eyes: Yes: Conjunctiva Clear HENT: Yes: Atraumatic, Normocephalic Neck: Yes: Supple, Trachea Midline Cardiovascular: Yes: Regular Rate and Rhythm, Murmur Respiratory: Yes: Regular, Diminished Gastrointestinal: Yes: Normal Bowel Sounds, Soft, Ascites Renal/: Yes: Moran Present Extremities: Yes: WNL Edema: Yes Edema: LLE: 4+, RLE: 4+ Integumentary: Yes: WNL Neurological: Yes: Alert, Oriented Psychiatric: Yes: Alert, Oriented Assessment/Plan IMPRESSION It is unclear based on the information we have what the cause of this patients LIANNA is. It is possible she had LIANNA from relative hypotension which occurred since 10/13/2015. She remains very edematous and likely has an element of cardiorenal syndrome. She does have proteinuria so probably has ckd PLAN agree with moran monitor renal function avoid further drops n BP echo was ordered already... would rule out pericardial effusion maybe easier to start a lasix drip to avoid hypotension MV
--- NOTE | 2016-10-16 16:01 | CON.GI ---
Consult Consult Specialty:: GASTROENTEROLOGY Reason for Consultation:: HYPERBILIRUBINEMIA, COMMENT ON CT RESULTS - History of Present Illness Chief Complaint: TIRED History of Present Illness: 61 YEAR OLD FEMALE WHO MIS A POOR HISTORIAN ADMITTED WITH CHF AND FLUID OVERLOAD HAS ELEVATED BILIRUBIN (ALMOST ALL DIRECT) CHART STATES SHE HAS CIRRHOSIS AND AUTOIMMUNE HEPATITIS FOLLOW BY DR DIOP WHO SHE SAW TWO WEEKS AGO. SHE STATES SHE KNOWS NOTHING ABOUT HEPATITIS AND DR DIOP STATES THE NOTHING IS WRONG WITH HER LIVER. 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 Had PEG placed 11/03 after suffering vocal cord damage ( EMS intubation). PEG was subsequently removed. ) Hepatobiliary: Yes: Cirrhosis (cardiac cirrhosis), Cholecystitis (s/p lap choly 05/05) Renal/: Yes: Renal Calculi ...: No Psych: Yes: Depression Musculoskeletal: Yes: Chronic low back pain, Osteoarthritis Endocrine: Yes: Hypothyroidism - Past Surgical History Past Surgical History: Yes: AICD, CABG, Cholecystectomy, Colonoscopy, Joint Replacement (right THR), Stent (X2) - Alcohol/Substance Use Hx Alcohol Use: No History of Substance Use: reports: None - Smoking History Smoking history: Current some day smoker Have you smoked in the past 12 months: Yes Aproximately how many cigarettes per day: 5 - Social History Usual Living Arrangement: With Child ADL: Independent 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 History of Recent Travel: No Home Medications - Allergies Allergies/Adverse Reactions: Allergies Allergy/AdvReac Type Severity Reaction Status Date / Time aspirin Allergy Mild Rash Verified 10/11/16 15:30 banana Allergy Hives Verified 10/15/16 14:29 tomato Allergy Verified 10/15/16 14:30 - Home Medications Home Medications: Ambulatory Orders Calamine 8% Topical Lotion - 1 applic TP BID PRN #0 bottle 08/04/16 Clopidogrel Bisulfate [Plavix -] 75 mg PO DAILY #30 tablet 08/04/16 Levothyroxine [Synthroid -] 75 mcg PO DAILY #30 tab 08/04/16 Mineral Oil/Petrolat,Wht/Water [Eucerin (Large Jar) -] 1 applic TP DAILY PRN #0 jar 08/04/16 Spironolactone 50 mg PO DAILY #30 tablet 08/04/16 Furosemide [Lasix -] 80 mg PO BID #60 tablet 08/27/16 Metoprolol Succinate [Toprol Xl] 100 mg PO DAILY #30 tab.er.24h 08/27/16 Potassium Chloride 20 meq PO DAILY #30 tab 08/27/16 Atorvastatin Ca [Lipitor] 20 mg PO HS 09/08/16 Lisinopril [Prinivil] 5 mg PO DAILY #30 tablet 09/14/16 Family Disease History - Family Disease History Family Disease History: Diabetes: Sister (s/p CABG in her 50s), Heart Disease: Father (had unknown cancer), Mother (lived to ), Sister, [place]: Father Review of Systems - Review of Systems Constitutional: reports: Malaise, Weakness Eyes: reports: No Symptoms HENT: reports: No Symptoms Neck: reports: No Symptoms Cardiovascular: reports: Shortness of Breath Respiratory: reports: SOB Gastrointestinal: reports: Abdominal Pain Genitourinary: reports: No Symptoms Integumentary: reports: Other (SWELLING) Neurological: reports: No Symptoms Endocrine: reports: No Symptoms Physical Exam-GI Vital Signs: Vital Signs Temperature 97.8 F 10/16/16 10:00 Pulse Rate 73 10/16/16 10:00 Respiratory Rate 20 10/16/16 10:00 Blood Pressure 99/51 10/16/16 10:00 O2 Sat by Pulse Oximetry (%) 98 10/16/16 10:00 Constitutional: Yes: No Distress, Obese Eyes: Yes: Sclera Icterus HENT: Yes: Normocephalic Neck: Yes: Supple Cardiovascular: Yes: Pulse Irregular Respiratory: Yes: Diminished, Dullness Gastrointestinal Inspection: Yes: Other (ABDOMINAL WALL EDEMA) ...Auscultate: Yes: Normoactive Bowel Sounds ...Palpate: Yes: Soft Extremities: Yes: WNL Edema: Yes Labs: CBC, BMP 10/16/16 05:40 10/16/16 05:40 Laboratory Tests 03/30/16 03/30/16 03/31/16 21:30 21:30 06:00 WBC RBC Hgb Hct MCV MCHC RDW Plt Count MPV Neutrophils % INR 1.28 H Sodium Potassium Chloride Carbon Dioxide Anion Gap BUN Creatinine Creat Clearance w eGFR Random Glucose Calcium Phosphorus Magnesium Total Bilirubin 2.3 H D Direct Bilirubin AST 27 D ALT 33 D Alkaline Phosphatase 154 H Troponin I 0.15 H 0.16 H B-Natriuretic Peptide 9920.54 H Total Protein Albumin Smooth Musc &ASSISTANT TO [employer] Intrp 04/01/16 04/03/16 04/03/16 10:40 05:15 05:15 WBC 5.1 RBC 4.25 Hgb 11.5 D Hct 35.5 MCV 83.5 MCHC RDW Plt Count 216 MPV Neutrophils % 49.2 D INR Sodium Potassium Chloride Carbon Dioxide Anion Gap BUN Creatinine Creat Clearance w eGFR Random Glucose Calcium Phosphorus Magnesium Total Bilirubin 3.2 H D 1.7 H D Direct Bilirubin AST 36 D 29 ALT 32 33 Alkaline Phosphatase 147 H 114 D Troponin I 0.12 H B-Natriuretic Peptide Total Protein Albumin Smooth [employer]c &[employer]SIST[employer] TO [employer] Intrp 09/08/16 10/11/16 10/12/16 20:15 17:25 05:35 WBC RBC Hgb Hct MCV MCHC RDW Plt Count MPV Neutrophils % INR Sodium Potassium Chloride Carbon Dioxide Anion Gap BUN Creatinine Creat Clearance w eGFR Random Glucose Calcium Phosphorus Magnesium Total Bilirubin 4.0 H D 5.4 H Direct Bilirubin 4.1 H D AST 39 H D 30 D ALT 23 28 D Alkaline Phosphatase 148 H 142 H Troponin I B-Natriuretic Peptide Total Protein Albumin Smooth [employer]c &[employer]SIST[employer] TO [employer] Intrp 10/13/16 10/15/16 10/15/16 05:35 13:00 13:00 WBC RBC Hgb Hct MCV MCHC RDW Plt Count MPV Neutrophils % INR Sodium 141 Potassium 3.7 D Chloride 99 Carbon Dioxide 32 Anion Gap 10 BUN 14 Creatinine 0.8 Creat Clearance w eGFR > 60 Random Glucose 73 L Calcium 8.5 Phosphorus 2.4 L Magnesium 1.9 Total Bilirubin 4.7 H Direct Bilirubin 3.5 H AST 29 ALT 23 Alkaline Phosphatase 131 H Troponin I B-Natriuretic Peptide Total Protein 6.3 L Albumin 2.7 L Smooth [employer]c &[employer]SI[employer] TO [employer] Intrp Pending 10/16/16 05:40 WBC 10.1 H RBC 4.48 Hgb 11.9 D Hct 37.1 D MCV 82.9 MCHC 31.9 L RDW 23.5 H Plt Count 176 MPV 8.8 Neutrophils % INR Sodium Potassium Chloride Carbon Dioxide Anion Gap BUN Creatinine Creat Clearance w eGFR Random Glucose Calcium Phosphorus Magnesium Total Bilirubin Direct Bilirubin AST ALT Alkaline Phosphatase Troponin I B-Natriuretic Peptide Total Protein Albumin Smooth [employer]c &[employer]SIST[employer] TO [employer] Intrp Imaging - Results Cat Scan: Image Reviewed (NORMAL LIVER BUT NON CONTRAST CT) Problem List - Problems (1) Hyperbilirubinemia Assessment/Plan: PATIENT IS A POOR HISTORIAN. SINCE 2010 SHE HAS BEEN ADMITTED TO THIS HOSPITAL 33 TIMES AND THERE WAS NEVER AN AUTOIMMUNE WORK UP PERFORMED. SHE IS HEP B AND C NEGATIVE. THE CURRENT LFT'S ARE NO WORSE THAN THEY HAVE FOR THE LAST YEAR. THESE ARE CHRONIC ELEVATIONS THAT ARE STABLE. THE ETIOLOGY OF THIS IS NOT KNOWN BUT INFO FROM [facility] WILL PROVIDE YOU AN ANSWER! THE CT SCAN DOES NOT ADEQUATELY EVALUATE ORGANS IT IS A NON CONTRAST CT. THE TRACE ASCITES i AM SURE IS RELATED TO HER CHF. DR BELTRE WILL SEE THE PATIENT IN THE AM. Code(s): E80.6 - OTHER DISORDERS OF BILIRUBIN METABOLISM (2) Elevated liver function tests Code(s): R94.5 - ABNORMAL RESULTS OF LIVER FUNCTION STUDIES (3) Cardiac cirrhosis Code(s): K76.1 - CHRONIC PASSIVE CONGESTION OF LIVER (4) Acute combined systolic and diastolic ACC/AHA stage C congestive heart failure Code(s): I50.41 - ACUTE COMBINED SYSTOLIC AND DIASTOLIC (CONGESTIVE) HRT FAIL
[2016-10-16] MEDS: ATORVASTATIN CA 20 MG TABLET (FP) PO SCH (22:06)
[2016-10-17] MEDS: ACETAMINOPHEN 325 MG TABLET (FP) PO PRN (00:59)
[2016-10-17] MEDS: METOCLOPRAMIDE HCL INJECTION 10 MG/2 ML VIAL IVPUSH PRN (01:15)
[2016-10-17 02:15] LABS: CALCIUM 8.6 mg/dL (8.5-10.1); COCKROFT - GAULT 71.74; CREATININE 1.1 mg/dL (0.55-1.02); PHOSPHOROUS 2.8 mg/dL (2.5-4.9)
[2016-10-17] MEDS: PIPERACILLIN/TAZOB 3.375 GM 50 ML IVPB SCH ×3 (03:12→18:02)
[2016-10-17] MEDS: INSULIN SLIDING SCALE (NOVOLOG) 1 VIAL SQ SCH ×4 (06:34→21:45)
[2016-10-17] MEDS: FUROSEMIDE 40 MG/4 ML INJECTABLE VIAL IVPUSH SCH ×2 (06:37→13:11)
[2016-10-17] MEDS: LEVOTHYROXINE NA 75 MCG TABLET (FP) PO SCH (06:37)
[2016-10-17] MEDS: HEPARIN NA (PORCINE) 5,000 UNITS/ML 1ML VIAL SQ SCH ×3 (06:37→21:45)
[2016-10-17 08:51] LABS: MCHC 32.2 g/dl (32.0-36.0); MEAN CELL VOLUME 80.7 fl (80-96); MEAN PLT VOLUME 8.7 fl (7.5-11.1); PLATELET COUNT 165 K/MM3 (134-434); WHITE BLOOD COUNT 13.1 K/mm3 (4.0-10.0)
[2016-10-17] MEDS: DEXTROSE 10%-WATER - 1,000 ML IV SCH (09:31)
[2016-10-17] MEDS: LISINOPRIL 5 MG TABLET (FP) PO SCH (09:32)
[2016-10-17] MEDS: CLOPIDOGREL BISULFATE 75 MG TABLET (FP) PO SCH (09:32)
[2016-10-17] MEDS: METOPROLOL SUCCINATE 100 MG TAB.SR.24H (FP) PO SCH (09:32)
[2016-10-17] MEDS: SPIRONOLACTONE 25 MG TABLET (FP) PO SCH (09:32)
[2016-10-17] MEDS: VANCOMYCIN 1 GRAM (PRE-DOCKED) 250 ML IVPB SCH (11:54)
--- NOTE | 2016-10-17 12:10 | PN ---
Physical Exam: SUBJECTIVE: Patient seen and examined at bed side this morning. Says she feels better. Still has mild abdominal pain, diffusely, no nausea or vomiting. Denies chest pain, palpitation. OBJECTIVE: Vital Signs Period Temp Pulse Resp BP Sys/Santoro Pulse Ox Last 24 Hr 97.6 F-98.5 F 68-74 20-71 85-109/53-60 100-100 GENERAL: Awake, alert, and fully oriented, in mild respiratory distress, on nasal oxygen. HEAD: Normal with no signs of trauma. EYES: EOM intact, no pallor or icterus. EARS, NOSE, THROAT: Ears normal. Moist mucous membranes. NECK: Normal range of motion, supple without lymphadenopathy,, or masses. elevated JVD LUNGS: B/L equal air entry, decreased breath sounds at the b/l bases.No wheezes. No accessory muscle use. HEART: Regular rate and rhythm, normal S1 and S2 with pansystolic and early diastolic murmur. Positive hepatojugular reflex ABDOMEN: Soft, tenderness over the left lower quadrant, distended, normoactive bowel sounds, no guarding, no rebound, no masses. No hepatomegaly or splenomegaly. MUSCULOSKELETAL: Normal range of motion at all joints. No bony deformities or tenderness. No CVA tenderness. UPPER EXTREMITIES: 2+ pulses, warm, well-perfused. No cyanosis. No clubbing. No peripheral edema. LOWER EXTREMITIES: 2+ pulses, warm, well-perfused. No calf tenderness. peripheral edema 2+ upto the knee. Tenderness to light touch-improved. NEUROLOGICAL: Cranial nerves II-XII intact. Normal speech. Gait not observed PSYCHIATRIC: Cooperative. Good eye contact. Appropriate mood and affect. SKIN: Warm, dry, normal turgor, no rashes or lesions noted, normal capillary refill. Laboratory Results - last 24 hr 10/16/16 10/16/16 10/17/16 16:04 22:08 01:30 WBC RBC Hgb Hct MCV MCHC RDW Plt Count MPV Sodium 131 L Potassium 4.1 Chloride 92 L Carbon Dioxide 29 Anion Gap 10 BUN 30 H Creatinine 1.1 H D POC Glucometer 238 80 Random Glucose 63 L D Calcium 8.6 Phosphorus 2.8 D Magnesium 2.0 10/17/16 10/17/16 10/17/16 05:52 08:25 11:08 WBC 13.1 H RBC 4.43 Hgb 11.5 Hct 35.7 MCV 80.7 MCHC 32.2 RDW 23.0 H Plt Count 165 MPV 8.7 Sodium Potassium Chloride Carbon Dioxide Anion Gap BUN Creatinine POC Glucometer 58 112 Random Glucose Calcium Phosphorus Magnesium Active Medications Generic Name Dose Route Start Last Admin Trade Name Freq PRN Reason Stop Dose Admin Acetaminophen 650 mg 10/15/16 10:52 10/17/16 00:59 Tylenol - PO 650 mg Q6H PRN Administration FEVER OR PAIN Atorvastatin Calcium 20 mg 10/11/16 22:00 10/16/16 22:06 Lipitor - PO 20 mg HS RINA Administration Clopidogrel Bisulfate 75 mg 10/12/16 10:00 10/17/16 09:32 Plavix - PO 75 mg DAILY RINA Administration Furosemide 40 mg 10/12/16 06:00 10/17/16 06:37 Lasix Injection - IVPUSH 40 mg BID@0600,1400 RINA Administration Heparin Sodium (Porcine) 5,000 unit 10/11/16 22:00 10/17/16 06:37 Heparin - SQ 5,000 unit TID RINA Administration Dextrose 1,000 mls @ 20 mls/hr 10/15/16 07:45 10/17/16 09:31 D10w - IV 20 mls/hr ASDIR RINA Administration Piperacillin Sod/Tazobactam Sod 50 mls @ 100 mls/hr 10/15/16 18:00 10/17/16 09: 31 Zosyn 3.375gm Ivpb (Pre-Docked) IVPB 100 mls/hr Q8H-IV RINA Administration Protocol Vancomycin HCl 250 mls @ 200 mls/hr 10/16/16 12:00 10/17/16 11:54 Vancomycin (Pre-Docked) IVPB 200 mls/hr BID@0000,1200 RINA Administration Insulin Aspart 1 vial 10/11/16 22:00 10/17/16 11:17 Novolog Vial Sliding Scale - SQ Not Given ACHS [facility] Protocol Levothyroxine Sodium 75 mcg 10/12/16 07:00 10/17/16 06:37 Synthroid - PO 75 mcg DAILY@0700 RINA Administration Lisinopril 5 mg 10/12/16 10:00 10/17/16 09:32 Prinivil PO 5 mg DAILY RINA Administration Metoclopramide HCl 10 mg 10/14/16 23:07 10/17/16 01:15 Reglan Injection - IVPUSH 10 mg Q6H PRN Administration NAUSEA AND/OR VOMITING Metoprolol Succinate 100 mg 10/12/16 10:00 10/17/16 09:32 Toprol Xl - PO 100 mg DAILY RINA Administration Spironolactone 50 mg 10/12/16 10:00 10/17/16 09:32 Aldactone - PO 50 mg DAILY RINA Administration 10/15/[address] (without contrast) Clinical information: In comparison to a prior CT study of 08/22/2016 there is increased concentric subcutaneous edema along the abdomen and pelvis consistent with anasarca. Interval development of a small right pleural effusion is seen. The remainder of the study demonstrates no obvious interval change. No evidence of pneumoperitoneum or bowel obstruction. Trace ascites is again noted. Cardiomegaly. Transvenous cardiac pacemaker in place. Status post median sternotomy. Status post cholecystectomy The liver, spleen, pancreas, adrenal glands and kidneys demonstrate no obvious noncontrast abnormality. No obvious abscess is seen. There is no gross CT evidence of acute appendicitis or diverticulitis allowing for limited bowel opacification and lack of intravenous contrast as well as a paucity of intra-abdominal fat. Moderate atherosclerotic aortic dilatation without definite aneurysm formation. Prominent atherosclerotic vascular calcifications. Fibroid uterus. Lam catheter in place. Status post right hip replacement. ASSESSMENT/PLAN: CXR 10/12/16: Cardiomegaly and mild congestion. 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 # Group B Strep bacteremia- Unknown Etiology R/O GI source Leukocytosis 10.9-->13.1 Blood cultures x 2 positive for Group B strep agalactaciae IV Vancomycin Day 2 and IV Zosyn Day 2 started from 10/15/16 -6 doses so far ID consult appreciated GI consult appreciated # LIANNA likely prerenal- Improving creatine 1.6--->1.1 Cannot give IV fluids as patient has fluid overload-anasarca due to CHF Nephrology consult appreciated Avoid Nephrotoxic drugs # CHF exacerbation Has developed anasarca Admitted in Telemetry Continuous Cardiac monitoring, no acute events noted in the monitor. Strict Intake and output Daily Weight, 191lbs--->193 lbs BNP on admission: 1874 Continue Spironolactone 50 mg PO Daily Continue Lasix IV 40mg BID Cardiology consult appreciated CXR showed cardiomegaly and mild congestion 07/10/16 ECHO: Left ventricle is severely dilated. Moderate concentric left ventricular hypertrophy. Left ventricular systolic function is severely reduced. Right ventricle is moderately dilated. Right ventricular systolic function is moderate to severely reduced. Left atrium and right atrium is moderately dilated. Moderate MR. Moderate to severe Tricuspid regurgigation. Right ventricular systolic pressure elevated at 30-40mmHg. Mild # Increased troponin: likely from Demand ischemia Troponins trending down EKG: no acute changes on admission. # Hypokalemia with hypomagnesemia- Resolved. Resolved after repletion # Non compliance Patient has visited [facility] times this year, goes to [facility] and other hospitals frequently, was recently discharged from [facility] (last week) as per patients daughter. Patient is non compliant to medication at home and refuses medications here at the hospital. Needs constant counseling and family support or else patients medical condition will get worse due to non compliance. # Hypertension-Stable Metoprolol Succinate 100 mg PO DAILY Lisinopril 5mg po daily # Hyperlipidemia Continue Lipitor 20mg PO HS # DM HbA1c on 08/04- 6.6 Finger stick glucose monitoring Insulin sliding scale # CAD s/p MT 2003, CABG in 2003 s/p stents2 Continue Plavix 75mg po daily # COPD: Not in exacerbation Duoneb PRN # Hypothyroidism TSH-0.25 08/23/16 Continue Synthoid 75mcg po daily # Chronic Elevated liver enzymes with Hyperbilirubinemia Has done work up in the past. Avoid hepatotoxic drugs. GI consult appreciated # FEN Not on IV Fluids Electrolytes to be repeated tomorrow morning. Cardiac diet, Low Na diet # Prophylaxis For DVT: Heparin SQ For GI: Not indicated # Disposition: Admit to Telemetry. Duration of stay unknown. Illness, Investigation and Plan of care explained to the patient. She verbalized understanding. Case seen and discussed with Dr. Elizabeth. Problem List - Problems (1) LIANNA (acute kidney injury) Code(s): N17.9 - ACUTE KIDNEY FAILURE, UNSPECIFIED (2) Abdominal pain Code(s): R10.9 - UNSPECIFIED ABDOMINAL PAIN (3) CHF (congestive heart failure) Code(s): I50.9 - HEART FAILURE, UNSPECIFIED (4) Elevated liver function tests Code(s): R94.5 - ABNORMAL RESULTS OF LIVER FUNCTION STUDIES (5) Noncompliance with medication regimen Code(s): Z91.14 - PATIENT'S OTHER NONCOMPLIANCE WITH MEDICATION REGIMEN Visit type - Emergency Visit Emergency Visit: Yes ED Registration Date: 10/11/16 Care time: The patient presented to the Emergency Department on the above date and was hospitalized for further evaluation of their emergent condition. - New Patient This patient is new to me today: No - Critical Care Critical Care patient: No - Discharge Referral Referred to [facility] Med P.C.: No
--- NOTE | 2016-10-17 12:13 | PN ---
Progress Note, Physician History of Present Illness: OOB in chair Eating yogurt Reports much less periumbilical abdominal pain Temps down, afebrile WBC slightly increased BC prelim grp B strep per micro lab - Current Medication List Current Medications: Active Medications Acetaminophen (Tylenol -) 650 mg PO Q6H PRN PRN Reason: FEVER OR PAIN Last Admin: 10/17/16 00:59 Dose: 650 mg Atorvastatin Calcium (Lipitor -) 20 mg PO HS [facility] Last Admin: 10/16/16 22:06 Dose: 20 mg Clopidogrel Bisulfate (Plavix -) 75 mg PO DAILY [facility] Last Admin: 10/17/16 09:32 Dose: 75 mg Furosemide (Lasix Injection -) 40 mg IVPUSH BID@0600,1400 [facility] Last Admin: 10/17/16 06:37 Dose: 40 mg Heparin Sodium (Porcine) (Heparin -) 5,000 unit SQ TID [facility] Last Admin: 10/17/16 06:37 Dose: 5,000 unit Dextrose (D10w -) 1,000 mls @ 20 mls/hr IV ASDIR [facility] Last Admin: 10/17/16 09:31 Dose: 20 mls/hr Piperacillin Sod/Tazobactam Sod (Zosyn 3.375gm Ivpb (Pre-Docked)) 50 mls @ 100 mls/hr IVPB Q8H-IV RINA PRN Reason: Protocol Last Admin: 10/17/16 09:31 Dose: 100 mls/hr Vancomycin HCl (Vancomycin (Pre-Docked)) 250 mls @ 200 mls/hr IVPB BID@0000, 1200 [facility] Last Admin: 10/17/16 11:54 Dose: 200 mls/hr Insulin Aspart (Novolog Vial Sliding Scale -) 1 vial SQ ACHS [facility] PRN Reason: Protocol Last Admin: 10/17/16 11:17 Dose: Not Given Levothyroxine Sodium (Synthroid -) 75 mcg PO DAILY@0700 [facility] Last Admin: 10/17/16 06:37 Dose: 75 mcg Lisinopril (Prinivil) 5 mg PO DAILY [facility] Last Admin: 10/17/16 09:32 Dose: 5 mg Metoclopramide HCl (Reglan Injection -) 10 mg IVPUSH Q6H PRN PRN Reason: NAUSEA AND/OR VOMITING Last Admin: 10/17/16 01:15 Dose: 10 mg Metoprolol Succinate (Toprol Xl -) 100 mg PO DAILY [facility] Last Admin: 10/17/16 09:32 Dose: 100 mg Spironolactone (Aldactone -) 50 mg PO DAILY [facility] Last Admin: 10/17/16 09:32 Dose: 50 mg - Objective Vital Signs: Vital Signs Temperature 97.9 F 10/17/16 10:00 Pulse Rate 74 10/17/16 10:00 Respiratory Rate 20 10/17/16 10:00 Blood Pressure 108/53 10/17/16 10:00 O2 Sat by Pulse Oximetry (%) 100 10/17/16 10:00 Constitutional: Yes: No Distress Eyes: Yes: Conjunctiva Clear Cardiovascular: Yes: Regular Rate and Rhythm, S1, S2 Respiratory: Yes: CTA Bilaterally Gastrointestinal: Yes: Normal Bowel Sounds, Soft, Tenderness, Other (+ periumbilical tenderness) Edema: Yes Edema: LLE: 2+, RLE: 2+ Labs: CBC, BMP 10/17/16 08:25 10/17/16 01:30 Assessment/Plan Streptococcal bacteremia/ sepsis- possible GI source Fever - improved Azotemia Await final blood c/s Continue zosyn + vancomycin GI evaluation noted Echo
--- NOTE | 2016-10-17 15:15 | PN ---
Progress Note, Physician History of Present Illness: Pt seen and examined at bedside. She is awake and alert. She denies shortness of breath. - Current Medication List Current Medications: Active Medications Acetaminophen (Tylenol -) 650 mg PO Q6H PRN PRN Reason: FEVER OR PAIN Last Admin: 10/17/16 00:59 Dose: 650 mg Atorvastatin Calcium (Lipitor -) 20 mg PO HS [facility] Last Admin: 10/16/16 22:06 Dose: 20 mg Clopidogrel Bisulfate (Plavix -) 75 mg PO DAILY [facility] Last Admin: 10/17/16 09:32 Dose: 75 mg Furosemide (Lasix Injection -) 40 mg IVPUSH BID@0600,1400 [facility] Last Admin: 10/17/16 13:11 Dose: 40 mg Heparin Sodium (Porcine) (Heparin -) 5,000 unit SQ TID [facility] Last Admin: 10/17/16 13:11 Dose: 5,000 unit Dextrose (D10w -) 1,000 mls @ 20 mls/hr IV ASDIR [facility] Last Admin: 10/17/16 09:31 Dose: 20 mls/hr Piperacillin Sod/Tazobactam Sod (Zosyn 3.375gm Ivpb (Pre-Docked)) 50 mls @ 100 mls/hr IVPB Q8H-IV RINA PRN Reason: Protocol Last Admin: 10/17/16 09:31 Dose: 100 mls/hr Vancomycin HCl (Vancomycin (Pre-Docked)) 250 mls @ 200 mls/hr IVPB BID@0000, 1200 [facility] Last Admin: 10/17/16 11:54 Dose: 200 mls/hr Insulin Aspart (Novolog Vial Sliding Scale -) 1 vial SQ ACHS [facility] PRN Reason: Protocol Last Admin: 10/17/16 11:17 Dose: Not Given Levothyroxine Sodium (Synthroid -) 75 mcg PO DAILY@0700 [facility] Last Admin: 10/17/16 06:37 Dose: 75 mcg Lisinopril (Prinivil) 5 mg PO DAILY [facility] Last Admin: 10/17/16 09:32 Dose: 5 mg Metoclopramide HCl (Reglan Injection -) 10 mg IVPUSH Q6H PRN PRN Reason: NAUSEA AND/OR VOMITING Last Admin: 10/17/16 01:15 Dose: 10 mg Metoprolol Succinate (Toprol Xl -) 100 mg PO DAILY [facility] Last Admin: 05/30/17 09:32 Dose: 100 mg Spironolactone (Aldactone -) 50 mg PO DAILY [facility] Last Admin: 10/17/16 09:32 Dose: 50 mg - Objective Vital Signs: Vital Signs Temperature 97.9 F 10/17/16 10:00 Pulse Rate 74 10/17/16 10:00 Respiratory Rate 20 10/17/16 10:00 Blood Pressure 108/53 10/17/16 10:00 O2 Sat by Pulse Oximetry (%) 100 10/17/16 10:00 Constitutional: Yes: Calm Eyes: Yes: Conjunctiva Clear HENT: Yes: Atraumatic Neck: Yes: Supple Cardiovascular: Yes: S1, S2 Respiratory: Yes: CTA Bilaterally Gastrointestinal: Yes: Soft Genitourinary: Yes: WNL Musculoskeletal: Yes: WNL Edema: Yes Edema: LLE: 1+, RLE: 1+ Neurological: Yes: Oriented Psychiatric: Yes: Oriented Labs: CBC, BMP 10/17/16 08:25 10/17/16 01:30 Problem List - Problems (1) Abdominal pain Code(s): R10.9 - UNSPECIFIED ABDOMINAL PAIN (2) CHF (congestive heart failure) Code(s): I50.9 - HEART FAILURE, UNSPECIFIED (3) Sepsis Code(s): A41.9 - SEPSIS, UNSPECIFIED ORGANISM (4) LIANNA (acute kidney injury) Code(s): N17.9 - ACUTE KIDNEY FAILURE, UNSPECIFIED Assessment/Plan Current Medications Generic Name Dose Route Start Last Admin Trade Name Freq PRN Reason Stop Dose Admin Acetaminophen 650 mg 10/15/16 10:52 10/17/16 00:59 Tylenol - PO 650 mg Q6H PRN Administration FEVER OR PAIN Atorvastatin Calcium 20 mg 10/11/16 22:00 10/16/16 22:06 Lipitor - PO 20 mg HS RINA Administration Clopidogrel Bisulfate 75 mg 10/12/16 10:00 10/17/16 09:32 Plavix - PO 75 mg DAILY RINA Administration Furosemide 40 mg 10/12/16 06:00 10/17/16 13:11 Lasix Injection - IVPUSH 40 mg BID@0600,1400 RINA Administration Heparin Sodium (Porcine) 5,000 unit 10/11/16 22:00 10/17/16 13:11 Heparin - SQ 5,000 unit TID RINA Administration Dextrose 1,000 mls @ 20 mls/hr 10/15/16 07:45 10/17/16 09:31 D10w - IV 20 mls/hr ASDIR RINA Administration Piperacillin Sod/Tazobactam Sod 50 mls @ 100 mls/hr 10/15/16 18:00 10/17/16 09: 31 Zosyn 3.375gm Ivpb (Pre-Docked) IVPB 100 mls/hr Q8H-IV RINA Administration Protocol Vancomycin HCl 250 mls @ 200 mls/hr 10/16/16 12:00 10/17/16 11:54 Vancomycin (Pre-Docked) IVPB 200 mls/hr BID@0000,1200 R[facility] Administration Insulin Aspart 1 vial 10/11/16 22:00 10/17/16 11:17 Novolog Vial Sliding Scale - SQ Not Given ACHS [facility] Protocol Levothyroxine Sodium 75 mcg 10/12/16 07:00 10/17/16 06:37 Synthroid - PO 75 mcg DAILY@0700 R[facility] Administration Lisinopril 5 mg 10/12/16 10:00 10/17/16 09:32 Prinivil PO 5 mg DAILY RINA Administration Metoclopramide HCl 10 mg 10/14/16 23:07 10/17/16 01:15 Reglan Injection - IVPUSH 10 mg Q6H PRN Administration NAUSEA AND/OR VOMITING Metoprolol Succinate 100 mg 10/12/16 10:00 10/17/16 09:32 Toprol Xl - PO 100 mg DAILY RINA Administration Spironolactone 50 mg 10/12/16 10:00 10/17/16 09:32 Aldactone - PO 50 mg DAILY RINA Administration Impression 1. LIANNA 2. CHF 3. sepsis 4. CAD 5. DM 6. chol 7. COPD 8. hypothyroidism Plan - renal function is improving - cont with lasix - repeat labs in am - repeat sodium level in am - will follow Dr Lowry
--- NOTE | 2016-10-17 17:23 | PN ---
Teaching Attending Note Name of Resident: Caty Jarrett ATTENDING PHYSICIAN STATEMENT I saw and evaluated the patient. I reviewed the resident's note and discussed the case with the resident. I agree with the resident's findings and plan as documented. SUBJECTIVE: Patient is feeling better, with no acute distress. No shortness of breath, the swelling of lower extremities improving. OBJECTIVE: Vital Signs Temperature 97.3 F L 10/17/16 16:02 Pulse Rate 70 10/17/16 16:02 Respiratory Rate 20 10/17/16 16:02 Blood Pressure 108/59 10/17/16 16:02 O2 Sat by Pulse Oximetry (%) 100 10/17/16 10:00 CBCD WBC 13.1 K/mm3 (4.0-10.0) H 10/17/16 08:25 RBC 4.43 M/mm3 (3.60-5.2) 10/17/16 08:25 Hgb 11.5 GM/dL (10.7-15.3) 10/17/16 08:25 Hct 35.7 % (32.4-45.2) 10/17/16 08:25 MCV 80.7 fl (80-96) 10/17/16 08:25 MCHC 32.2 g/dl (32.0-36.0) 10/17/16 08:25 RDW 23.0 % (11.6-15.6) H 10/17/16 08:25 Plt Count 165 K/MM3 (134-434) 10/17/16 08:25 MPV 8.7 fl (7.5-11.1) 10/17/16 08:25 CMP Sodium 131 mmol/L (136-145) L 10/17/16 01:30 Potassium 4.1 mmol/L (3.5-5.1) 10/17/16 01:30 Chloride 92 mmol/L (98-107) L 10/17/16 01:30 Carbon Dioxide 29 mmol/L (21-32) 10/17/16 01:30 Anion Gap 10 (8-16) 10/17/16 01:30 BUN 30 mg/dL (7-18) H 10/17/16 01:30 Creatinine 1.1 mg/dL (0.55-1.02) H D 10/17/16 01:30 Creat Clearance w eGFR 32.55 (>60) 10/16/16 05:40 Random Glucose 63 mg/dL (74-106) L D 10/17/16 01:30 Calcium 8.6 mg/dL (8.5-10.1) 10/17/16 01:30 Total Bilirubin 4.5 mg/dL (0.2-1.0) H 10/16/16 05:40 AST 34 U/L (15-37) D 10/16/16 05:40 ALT 22 U/L (12-78) D 10/16/16 05:40 Alkaline Phosphatase 110 U/L (45-117) D 10/16/16 05:40 Total Protein 5.6 g/dl (6.4-8.2) L D 10/16/16 05:40 Albumin 2.3 g/dl (3.4-5.0) L D 10/16/16 05:40 CARDIAC ENZYMES Creatine Kinase 138 IU/L (26-192) 10/12/16 05:35 Troponin I 0.11 ng/ml (0.00-0.05) H 10/13/16 17:30 Home Medications Medication Instructions Recorded Calamine 8% Topical Lotion - 1 applic TP BID PRN #0 bottle 08/04/16 Clopidogrel Bisulfate [Plavix -] 75 mg PO DAILY #30 tablet 08/04/16 Levothyroxine [Synthroid -] 75 mcg PO DAILY #30 tab 08/04/16 Mineral Oil/Petrolat,Wht/Water 1 applic TP DAILY PRN #0 jar 08/04/16 [Eucerin (Large Jar) -] Spironolactone 50 mg PO DAILY #30 tablet 08/04/16 Furosemide [Lasix -] 80 mg PO BID #60 tablet 08/27/16 Metoprolol Succinate [Toprol Xl] 100 mg PO DAILY #30 tab.er.24h 08/27/16 Potassium Chloride 20 meq PO DAILY #30 tab 08/27/16 Atorvastatin Ca [Lipitor] 20 mg PO HS 09/08/16 Lisinopril [Prinivil] 5 mg PO DAILY #30 tablet 09/14/16 Current Medications Generic Name Dose Route Start Last Admin Trade Name Freq PRN Reason Stop Dose Admin Acetaminophen 650 mg 10/15/16 10:52 10/17/16 00:59 Tylenol - PO 650 mg Q6H PRN Administration FEVER OR PAIN Atorvastatin Calcium 20 mg 10/11/16 22:00 10/16/16 22:06 Lipitor - PO 20 mg HS RINA Administration Clopidogrel Bisulfate 75 mg 10/12/16 10:00 10/17/16 09:32 Plavix - PO 75 mg DAILY RINA Administration Furosemide 40 mg 10/12/16 06:00 10/17/16 13:11 Lasix Injection - IVPUSH 40 mg BID@0600,1400 RINA Administration Heparin Sodium (Porcine) 5,000 unit 10/11/16 22:00 10/17/16 13:11 Heparin - SQ 5,000 unit TID RINA Administration Dextrose 1,000 mls @ 20 mls/hr 10/15/16 07:45 10/17/16 09:31 D10w - IV 20 mls/hr ASDIR RINA Administration Piperacillin Sod/Tazobactam Sod 50 mls @ 100 mls/hr 10/15/16 18:00 10/17/16 09: 31 Zosyn 3.375gm Ivpb (Pre-Docked) IVPB 100 mls/hr Q8H-IV RINA Administration Protocol Vancomycin HCl 250 mls @ 200 mls/hr 10/16/16 12:00 10/17/16 11:54 Vancomycin (Pre-Docked) IVPB 200 mls/hr BID@0000,1200 RINA Administration Insulin Aspart 1 vial 10/11/16 22:00 10/17/16 11:17 Novolog Vial Sliding Scale - SQ Not Given ACHS [facility] Protocol Levothyroxine Sodium 75 mcg 10/12/16 07:00 10/17/16 06:37 Synthroid - PO 75 mcg DAILY@0700 RINA Administration Lisinopril 5 mg 10/12/16 10:00 10/17/16 09:32 Prinivil PO 5 mg DAILY RINA Administration Metoclopramide HCl 10 mg 10/14/16 23:07 10/17/16 01:15 Reglan Injection - IVPUSH 10 mg Q6H PRN Administration NAUSEA AND/OR VOMITING Metoprolol Succinate 100 mg 10/12/16 10:00 10/17/16 09:32 Toprol Xl - PO 100 mg DAILY RINA Administration Spironolactone 50 mg 10/12/16 10:00 10/17/16 09:32 Aldactone - PO 50 mg DAILY RINA Administration Microbiology 10/15/16 08:18 Blood - Peripheral Venous Blood Culture - Final Strep Agalactiae Group B 10/15/16 08:19 Blood - Peripheral Venous Blood Culture - Final Strep Agalactiae Group B 10/15/16 09:35 Urine - Urine - Catheterized Urine Culture - Final NO GROWTH OBTAINED Abdomen and pelvis CT (without contrast) Clinical information: sepsis, likely GI source Multiplanar imaging was performed. As requested intravenous contrast was not administered. Oral contrast was administered. In comparison to a prior CT study of 08/22/2016 there is increased concentric subcutaneous edema along the abdomen and pelvis consistent with anasarca. Interval development of a small right pleural effusion is seen. The remainder of the study demonstrates no obvious interval change. No evidence of pneumoperitoneum or bowel obstruction. Trace ascites is again noted. Cardiomegaly. Transvenous cardiac pacemaker in place. Status post median sternotomy. Status post cholecystectomy The liver, spleen, pancreas, adrenal glands and kidneys demonstrate no obvious noncontrast abnormality. No obvious abscess is seen. There is no gross CT evidence of acute appendicitis or diverticulitis allowing for limited bowel opacification and lack of intravenous contrast as well as a paucity of intra-abdominal fat. Moderate atherosclerotic aortic dilatation without definite aneurysm formation. Prominent atherosclerotic vascular calcifications. Fibroid uterus. Lam catheter in place. Status post right hip replacement. IMPRESSION: There is limited visualization due to lack of intravenous contrast, limited bowel opacification and a paucity of intra-abdominal fat. The intraabdominal/pelvic soft tissue structures demonstrate no gross interval change in comparison to a prior CT study of 08/22/2016. Prominent concentric subcutaneous edema along the abdomen and pelvis which appears increased. ASSESSMENT AND PLAN: Patient is a 61 year old female non complaint patient presented with hx of HTN , HLD, DM, CAD s/p GA 2003, CABG in 2003 s/p stents2, Systolic CHF s/p ICD/ Pacemaker, COPD, current smoker, hypothyroid & peripheral neuropathy presented to The ED with complaint of worsening shortness of breath. # Sepsis with unknown etiology , Gi consult , ID consulted on IV zosyn and vanco x1 dose ordered by ID. CT abdomen/pelvis with oral contrast as above the result. #Acute over chronic systolic CHF exacerbation due to noncompliance , continue IV lasix 40mg bid ,cardio on the case , will hold potassium, kphos and mag since they are on the normal range for now resume Spironolactone 50 mg PO daily , Daily weights Is and Os, monitor electrolytes. # CAD-status post GA and CABG in 2003 (stents2) continue Plavix 75mg po daily # DM Novolog sliding scale with coverage # HTN Metoprolol Succinate 100 mg PO daily, Lisinopril 5mg PO daily # HLD Resume Lipitor 20 mg QHS # Hypothyroidism Resume Synthroid 75 mcg po daily # Hypokalemia 40meq Kcl PO # COPD continue Duoneb prn DVT Px: Heparin sq Streptococcal bacteremia/ sepsis- possible GI source Fever - improved Azotemia Await final blood c/s Continue zosyn + vancomycin GI evaluation noted Echo
[2016-10-17] MEDS: ATORVASTATIN CA 20 MG TABLET (FP) PO SCH (21:45)
[2016-10-18] MEDS: VANCOMYCIN 1 GRAM (PRE-DOCKED) 250 ML IVPB SCH ×2 (00:23→00:24)
[2016-10-18] MEDS: PIPERACILLIN/TAZOB 3.375 GM 50 ML IVPB SCH (02:55)
[2016-10-18] MEDS: HEPARIN NA (PORCINE) 5,000 UNITS/ML 1ML VIAL SQ SCH ×3 (06:33→23:13)
[2016-10-18] MEDS: INSULIN SLIDING SCALE (NOVOLOG) 1 VIAL SQ SCH ×3 (06:33→16:56)
[2016-10-18] MEDS: FUROSEMIDE 40 MG/4 ML INJECTABLE VIAL IVPUSH SCH ×2 (06:33→13:58)
[2016-10-18] MEDS: LEVOTHYROXINE NA 75 MCG TABLET (FP) PO SCH (06:33)
[2016-10-18 07:32] LABS: MCH 26.1 pg (25.7-33.7); MCHC 32.4 g/dl (32.0-36.0); MEAN CELL VOLUME 80.5 fl (80-96); PLATELET COUNT 159 K/MM3 (134-434); RDW 23.1 % (11.6-15.6); WHITE BLOOD COUNT 13.4 K/mm3 (4.0-10.0)
[2016-10-18 07:58] LABS: CALCIUM 8.6 mg/dL (8.5-10.1); COCKROFT - GAULT 89.964; CREATININE 0.9 mg/dL (0.55-1.02)
--- NOTE | 2016-10-18 08:18 | PN ---
Progress Note, Physician Chief Complaint: Pt sitting in chair; less itching and swelling of legs; no chest pain or dyspnea ; no palpitations. Occasional pain in abdomen. History of Present Illness: The patient is a 61 year old black female, with a significant past medical history of hypertension, hyperlipidemia, Dm, CAD s/p defibrillator/pacemaker s/ p CABG, NH, severe systolic CHF, hypothyroidism, kidney stones, peripheral neuropathy, anxiety/depression, who presents to the emergency department from the office of Dr. San at the liver transplant center at [facility], a week after being discharged (ED visit on 10/04/16) for worsening shortness of breath and lower extremity edema today. The patient reports exertional SOB. She states she can walk for a few minutes, but states she has to sit and rest secondary to her dyspnea. She states her lower extremities are more swollen today, but admits to taking her medications today. She also reports diffuse abdominal discomfort today. She states she recently changed her PMD, but denies having made an appointment to meet the new PMD, Dr. Rueda. As per discharge summary from Dr. San, the patient was being seen for hepatomegaly to evaluate for autoimmune hepatitis. The patient is not currently on medication for her liver. She denies chest pain, headache and dizziness. She denies fever, chills, nausea , vomit, diarrhea and constipation. She denies dysuria, frequency, urgency and hematuria. Allergies: aspirin Past surgical history: PEG tube placement, Stents x2, CABG (2003), ICD/ Pacemaker (November), cholecystectomy (April 2016) Social history: current everyday tobacco use (3 cigarettes daily). Denies alcohol or drug use PCP - Dr. Parrish Ferrer/ Dr. Rueda Decontamination Worker - Dr. Dick Cage - Current Medication List Current Medications: Active Medications Acetaminophen (Tylenol -) 650 mg PO Q6H PRN PRN Reason: FEVER OR PAIN Last Admin: 10/17/16 00:59 Dose: 650 mg Atorvastatin Calcium (Lipitor -) 20 mg PO HS RINA Last Admin: 10/17/16 21:45 Dose: 20 mg Clopidogrel Bisulfate (Plavix -) 75 mg PO DAILY [facility] Last Admin: 10/17/16 09:32 Dose: 75 mg Furosemide (Lasix Injection -) 40 mg IVPUSH BID@0600,1400 [facility] Last Admin: 10/18/16 06:33 Dose: 40 mg Heparin Sodium (Porcine) (Heparin -) 5,000 unit SQ TID [facility] Last Admin: 10/18/16 06:33 Dose: 5,000 unit Dextrose (D10w -) 1,000 mls @ 20 mls/hr IV ASDIR [facility] Last Admin: 10/17/16 09:31 Dose: 20 mls/hr Piperacillin Sod/Tazobactam Sod (Zosyn 3.375gm Ivpb (Pre-Docked)) 50 mls @ 100 mls/hr IVPB Q8H-IV RINA PRN Reason: Protocol Last Admin: 10/18/16 02:55 Dose: 100 mls/hr Vancomycin HCl (Vancomycin (Pre-Docked)) 250 mls @ 200 mls/hr IVPB BID@0000, 1200 [facility] Last Admin: 10/18/16 00:24 Dose: 200 mls/hr Insulin Aspart (Novolog Vial Sliding Scale -) 1 vial SQ ACHS [facility] PRN Reason: Protocol Last Admin: 10/18/16 06:33 Dose: Not Given Levothyroxine Sodium (Synthroid -) 75 mcg PO DAILY@0700 [facility] Last Admin: 10/18/16 06:33 Dose: 75 mcg Lisinopril (Prinivil) 5 mg PO DAILY [facility] Last Admin: 10/17/16 09:32 Dose: 5 mg Metoclopramide HCl (Reglan Injection -) 10 mg IVPUSH Q6H PRN PRN Reason: NAUSEA AND/OR VOMITING Last Admin: 10/17/16 01:15 Dose: 10 mg Metoprolol Succinate (Toprol Xl -) 100 mg PO DAILY [facility] Last Admin: 10/17/16 09:32 Dose: 100 mg Spironolactone (Aldactone -) 50 mg PO DAILY [facility] Last Admin: 10/17/16 09:32 Dose: 50 mg - Objective Vital Signs: Vital Signs Temperature 97.8 F 10/18/16 07:00 Pulse Rate 74 10/18/16 07:00 Respiratory Rate 20 10/18/16 07:09 Blood Pressure 97/54 10/18/16 07:00 O2 Sat by Pulse Oximetry (%) 100 10/18/16 07:09 Constitutional: Yes: Calm Eyes: Yes: WNL HENT: Yes: WNL Neck: Yes: WNL Cardiovascular: Yes: Regular Rate and Rhythm Respiratory: Yes: Regular Gastrointestinal: Yes: Soft. No: Tenderness ...Rectal Exam: Yes: Deferred Genitourinary: No: Anuria Musculoskeletal: Yes: Muscle Weakness Extremities: Yes: Cool Edema: Yes Edema: LLE: 1+, RLE: 1+ Peripheral Pulses WNL: No Peripheral Pulses: Left Doralis Pedis: 1+, Right Dorsalis Pedis: 1+ Neurological: Yes: Alert, Oriented Psychiatric: Yes: Alert, Oriented Labs: CBC, BMP 10/18/16 05:35 10/18/16 05:35 Problem List - Problems (1) Dyspepsia Code(s): K30 - FUNCTIONAL DYSPEPSIA (2) Hyperbilirubinemia Code(s): E80.6 - OTHER DISORDERS OF BILIRUBIN METABOLISM (3) Hyperlipidemia Code(s): E78.5 - HYPERLIPIDEMIA, UNSPECIFIED (4) Hypertension Code(s): I10 - ESSENTIAL (PRIMARY) HYPERTENSION (5) Peripheral neuropathy Code(s): G62.9 - POLYNEUROPATHY, UNSPECIFIED (6) Status post THR (total hip replacement) Code(s): Z96.649 - PRESENCE OF UNSPECIFIED ARTIFICIAL HIP JOINT (7) Postoperative abdominal pain Code(s): R10.9 - UNSPECIFIED ABDOMINAL PAIN G89.18 - OTHER ACUTE POSTPROCEDURAL PAIN (8) Hypokalemia Assessment/Plan: K+ now 4.1; keep 4-4.5 (hx NSVT, severe systolic LV dysfunction). Added magnesium oxide 400 mg bid; keep Mg (now 2.0) at 2-2.3. Keep PO4>2.5-3.0 (now 2.8). Code(s): E87.6 - HYPOKALEMIA (9) Lower extremity edema Code(s): R60.0 - LOCALIZED EDEMA (10) Cigarette nicotine dependence Code(s): F17.210 - NICOTINE DEPENDENCE, CIGARETTES, UNCOMPLICATED (11) Coronary artery disease Code(s): I25.10 - ATHSCL HEART DISEASE OF [place] CORONARY ARTERY W/O ANG PCTRS (12) Depression Code(s): F32.9 - MAJOR DEPRESSIVE DISORDER, SINGLE EPISODE, UNSPECIFIED (13) Diabetes Code(s): E11.9 - TYPE 2 DIABETES MELLITUS WITHOUT COMPLICATIONS Qualifiers: Diabetes mellitus type: type 2 Diabetes mellitus complication status: with unspecified complications Diabetes mellitus fdc insulin use: with terminal operations supervisor use Qualified Code(s): E11.8 - Type 2 diabetes mellitus with unspecified complications; Z79.4 - intermediate school teacher (current) use of insulin (14) Hypothyroidism Code(s): E03.9 - HYPOTHYROIDISM, UNSPECIFIED (15) ICD (implantable cardioverter-defibrillator) in place Code(s): Z95.810 - PRESENCE OF AUTOMATIC (IMPLANTABLE) CARDIAC DEFIBRILLATOR (16) Acute on chronic systolic and diastolic heart failure, NYHA class 1 Assessment/Plan: I had a long discussion with pt's daughter separately, who says her mother's compliance to medications at home is questionable. Pt is also smoking "a lot more than she says she is", according to daughter. Her diet is also poor; she does not cook much, and eats "[place] food and pizza". Pt will need work on the above if progress is to be made (multiple readmissions lately for CHF). She is also depressed, per daughter, but refuses to see a psychologist because she thinks people will say she is "crazy". On metoprolol, spironolactone, lisinopril, furosemide. F/u Is and Os, daily weight, BUN/Cr. Replete K, PO4, and Mg; keep K+ 4-4.5, Mg 2-2.3. Code(s): I50.43 - ACUTE ON CHRONIC COMBINED SYSTOLIC AND DIASTOLIC HRT FAIL (17) NSVT (nonsustained ventricular tachycardia) Assessment/Plan: Continue metoprolol, lisinopril, spironolactone. Maintain electrolytes WNL. Code(s): I47.2 - VENTRICULAR TACHYCARDIA (18) Sleep apnea Assessment/Plan: Pt sleeps fitfully at night, then seeps hours during the day. Recommend sleep studies to r/o sleep apnea.. Code(s): G47.30 - SLEEP APNEA, UNSPECIFIED
[2016-10-18] MEDS: DEXTROSE 10%-WATER - 1,000 ML IV SCH (08:21)
--- NOTE | 2016-10-18 08:30 | PN ---
Progress Note, Physician Chief Complaint: ID Sitting up in bed much better then when I saw her sunday morning at that time acutely ill with fever - Current Medication List Current Medications: Active Medications Acetaminophen (Tylenol -) 650 mg PO Q6H PRN PRN Reason: FEVER OR PAIN Last Admin: 10/17/16 00:59 Dose: 650 mg Atorvastatin Calcium (Lipitor -) 20 mg PO HS [facility] Last Admin: 10/17/16 21:45 Dose: 20 mg Clopidogrel Bisulfate (Plavix -) 75 mg PO DAILY [facility] Last Admin: 10/17/16 09:32 Dose: 75 mg Furosemide (Lasix Injection -) 40 mg IVPUSH BID@0600,1400 [facility] Last Admin: 10/18/16 06:33 Dose: 40 mg Heparin Sodium (Porcine) (Heparin -) 5,000 unit SQ TID [facility] Last Admin: 10/18/16 06:33 Dose: 5,000 unit Dextrose (D10w -) 1,000 mls @ 20 mls/hr IV ASDIR [facility] Last Admin: 10/18/16 08:21 Dose: 20 mls/hr Piperacillin Sod/Tazobactam Sod (Zosyn 3.375gm Ivpb (Pre-Docked)) 50 mls @ 100 mls/hr IVPB Q8H-IV [facility] PRN Reason: Protocol Last Admin: 10/18/16 02:55 Dose: 100 mls/hr Vancomycin HCl (Vancomycin (Pre-Docked)) 250 mls @ 200 mls/hr IVPB BID@0000, 1200 [facility] Last Admin: 10/18/16 00:24 Dose: 200 mls/hr Insulin Aspart (Novolog Vial Sliding Scale -) 1 vial SQ ACHS [facility] PRN Reason: Protocol Last Admin: 10/18/16 06:33 Dose: Not Given Levothyroxine Sodium (Synthroid -) 75 mcg PO DAILY@0700 [facility] Last Admin: 10/18/16 06:33 Dose: 75 mcg Lisinopril (Prinivil) 5 mg PO DAILY [facility] Last Admin: 10/17/16 09:32 Dose: 5 mg Metoclopramide HCl (Reglan Injection -) 10 mg IVPUSH Q6H PRN PRN Reason: NAUSEA AND/OR VOMITING Last Admin: 10/17/16 01:15 Dose: 10 mg Metoprolol Succinate (Toprol Xl -) 100 mg PO DAILY [facility] Last Admin: 10/17/16 09:32 Dose: 100 mg Spironolactone (Aldactone -) 50 mg PO DAILY [facility] Last Admin: 10/17/16 09:32 Dose: 50 mg - Objective Vital Signs: Vital Signs Temperature 97.8 F 10/18/16 07:00 Pulse Rate 74 10/18/16 07:00 Respiratory Rate 20 10/18/16 07:09 Blood Pressure 97/54 10/18/16 07:00 O2 Sat by Pulse Oximetry (%) 100 10/18/16 07:09 Constitutional: Yes: Well Nourished, No Distress HENT: Yes: WNL, Atraumatic Neck: Yes: WNL, Supple, Tenderness Cardiovascular: Yes: WNL, Regular Rate and Rhythm. No: Murmur Respiratory: Yes: WNL, Regular, CTA Bilaterally. No: Rales, Rhonchi Gastrointestinal: Yes: WNL, Normal Bowel Sounds, Soft Edema: No Labs: CBC, BMP 10/18/16 05:35 10/18/16 05:35 Problem List - Problems (1) Acute on chronic systolic and diastolic heart failure, NYHA class 1 Code(s): I50.43 - ACUTE ON CHRONIC COMBINED SYSTOLIC AND DIASTOLIC HRT FAIL (2) Sepsis Code(s): A41.9 - SEPSIS, UNSPECIFIED ORGANISM (3) Abdominal pain Code(s): R10.9 - UNSPECIFIED ABDOMINAL PAIN Assessment/Plan Microbiology 10/15/16 09:35 Urine - Urine - Catheterized Urine Culture - Final NO GROWTH OBTAINED 10/15/16 08:19 Blood - Peripheral Venous Blood Culture - Final Strep Agalactiae Group B 10/15/16 08:18 Blood - Peripheral Venous Blood Culture - Final Strep Agalactiae Group B Laboratory Tests 10/16/16 10/18/16 10/18/16 09:05 05:35 05:35 WBC 13.4 H Hgb 11.3 Plt Count 159 BUN 25 H Creatinine 0.9 Random Vancomycin 13.221 Assessment Resolving sepsis syndrome with Group B strep bacteremia 4 days into her admission source unclear she is diabetic a risk factor for Group B strep Rule out endocarditis Plan Cefazolin 2 grs q8H Stop Vanco Zosyn ECHO Duration of therapy to be determined Repeat blood culture Ismael CHAM[facility]ERS
[2016-10-18] MEDS: METOPROLOL SUCCINATE 100 MG TAB.SR.24H (FP) PO SCH (09:32)
[2016-10-18] MEDS: CLOPIDOGREL BISULFATE 75 MG TABLET (FP) PO SCH (09:32)
[2016-10-18] MEDS: SPIRONOLACTONE 25 MG TABLET (FP) PO SCH (09:32)
[2016-10-18] MEDS: LISINOPRIL 5 MG TABLET (FP) PO SCH (09:33)
--- NOTE | 2016-10-18 11:35 | PN ---
Progress Note, Physician Chief Complaint: feels better no c/o History of Present Illness: The patient is a 61 year old black female, with a significant past medical history of hypertension, hyperlipidemia, Dm, CAD s/p defibrillator/pacemaker s/ p CABG, [place], severe systolic CHF, hypothyroidism, kidney stones, peripheral neuropathy, anxiety/depression, who presents to the emergency department from the office of Dr. San at the liver transplant center at [facility], a week after being discharged (ED visit on 10/04/16) for worsening shortness of breath and lower extremity edema today. The patient reports exertional SOB. She states she can walk for a few minutes, but states she has to sit and rest secondary to her dyspnea. She states her lower extremities are more swollen today, but admits to taking her medications today. She also reports diffuse abdominal discomfort today. She states she recently changed her PMD, but denies having made an appointment to meet the new PMD, Dr. Rueda. As per discharge summary from Dr. San, the patient was being seen for hepatomegaly to evaluate for autoimmune hepatitis. The patient is not currently on medication for her liver. She denies chest pain, headache and dizziness. She denies fever, chills, nausea , vomit, diarrhea and constipation. She denies dysuria, frequency, urgency and hematuria. Allergies: aspirin Past surgical history: PEG tube placement, Stents x2, CABG (2003), ICD/ Pacemaker (November), cholecystectomy (April 2016) Social history: current everyday tobacco use (3 cigarettes daily). Denies alcohol or drug use PCP - Dr. Parrish Ferrer/ Dr. 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 Dick Cage - Current Medication List Current Medications: Active Medications Acetaminophen (Tylenol -) 650 mg PO Q6H PRN PRN Reason: FEVER OR PAIN Last Admin: 10/17/16 00:59 Dose: 650 mg Clopidogrel Bisulfate (Plavix -) 75 mg PO DAILY [facility] Last Admin: 10/18/16 09:32 Dose: 75 mg Furosemide (Lasix Injection -) 80 mg IVPUSH BID@0600,1400 [facility] Heparin Sodium (Porcine) (Heparin -) 5,000 unit SQ TID [facility]INA Last Admin: 10/18/16 06:33 Dose: 5,000 unit Dextrose (D10w -) 1,000 mls @ 20 mls/hr IV ASDIR [facility] Last Admin: 10/18/16 08:21 Dose: 20 mls/hr Insulin Aspart (Novolog Vial Sliding Scale -) 1 vial SQ TIDAC [facility] PRN Reason: Protocol Last Admin: 10/18/16 11:25 Dose: Not Given Levothyroxine Sodium (Synthroid -) 75 mcg PO DAILY@0700 [facility] Last Admin: 10/18/16 06:33 Dose: 75 mcg Lisinopril (Prinivil) 5 mg PO DAILY [facility] Last Admin: 10/18/16 09:33 Dose: 5 mg Metoclopramide HCl (Reglan Injection -) 10 mg IVPUSH Q6H PRN PRN Reason: NAUSEA AND/OR VOMITING Last Admin: 10/17/16 01:15 Dose: 10 mg Metoprolol Succinate (Toprol Xl -) 75 mg PO DAILY [facility] Spironolactone (Aldactone -) 50 mg PO DAILY [facility] Last Admin: 10/18/16 09:32 Dose: 50 mg - Objective Vital Signs: Vital Signs Temperature 97.8 F 10/18/16 07:00 Pulse Rate 74 10/18/16 07:00 Respiratory Rate 20 10/18/16 07:09 Blood Pressure 97/54 10/18/16 07:00 O2 Sat by Pulse Oximetry (%) 100 10/18/16 07:09 Eyes: Yes: WNL, Conjunctiva Clear, EOM Intact HENT: Yes: WNL, Atraumatic, Normocephalic Neck: Yes: WNL, Supple, Trachea Midline Cardiovascular: Yes: WNL, Regular Rate and Rhythm Respiratory: Yes: WNL, Regular, CTA Bilaterally Gastrointestinal: Yes: WNL, Normal Bowel Sounds Genitourinary: Yes: WNL Musculoskeletal: Yes: WNL Extremities: Yes: WNL Edema: No Integumentary: Yes: WNL Neurological: Yes: WNL, Alert, Oriented ...Motor Strength: WNL Psychiatric: Yes: WNL Labs: CBC, BMP 10/18/16 05:35 10/18/16 05:35 Assessment/Plan Problems (1) Dyspepsia Code(s): K30 - FUNCTIONAL DYSPEPSIA (2) Hyperbilirubinemia Code(s): E80.6 - OTHER DISORDERS OF BILIRUBIN METABOLISM (3) Hyperlipidemia Code(s): E78.5 - HYPERLIPIDEMIA, UNSPECIFIED (4) Hypertension Code(s): I10 - ESSENTIAL (PRIMARY) HYPERTENSION (5) Peripheral neuropathy Code(s): G62.9 - POLYNEUROPATHY, UNSPECIFIED (6) Status post THR (total hip replacement) Code(s): Z96.649 - PRESENCE OF UNSPECIFIED ARTIFICIAL HIP JOINT (7) Postoperative abdominal pain Code(s): R10.9 - UNSPECIFIED ABDOMINAL PAIN G89.18 - OTHER ACUTE POSTPROCEDURAL PAIN (8) Hypokalemia Assessment/Plan: K+ now 4.1; keep 4-4.5 (hx NSVT, severe systolic LV dysfunction). Added magnesium oxide 400 mg bid; keep Mg (now 2.0) at 2-2.3. Keep PO4>2.5-3.0 (now 2.8). Code(s): E87.6 - HYPOKALEMIA (9) Lower extremity edema Code(s): R60.0 - LOCALIZED EDEMA (10) Cigarette nicotine dependence Code(s): F17.210 - NICOTINE DEPENDENCE, CIGARETTES, UNCOMPLICATED (11) Coronary artery disease Code(s): I25.10 - ATHSCL HEART DISEASE OF [place] CORONARY ARTERY W/O ANG PCTRS (12) Depression Code(s): F32.9 - MAJOR DEPRESSIVE DISORDER, SINGLE EPISODE, UNSPECIFIED (13) Diabetes Code(s): E11.9 - TYPE 2 DIABETES MELLITUS WITHOUT COMPLICATIONS Qualifiers: Diabetes mellitus type: type 2 Diabetes mellitus complication status: with unspecified complications Diabetes mellitus termination clerk insulin use: with prison use Qualified Code(s): E11.8 - Type 2 diabetes mellitus with unspecified complications; Z79.4 - middle or intermediate school 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 Pt is also smoking "a lot more than she says she is", according to daughter. Her diet is also poor; she does not cook much, and eats "[place] food and pizza". Pt will need work on the above if progress is to be made (multiple readmissions lately for CHF). She is also depressed, per daughter, but refuses to see a psychologist because she thinks people will say she is "crazy". On metoprolol, spironolactone, lisinopril, furosemide. F/u Is and Os, daily weight, BUN/Cr. Replete K, PO4, and Mg; keep K+ 4-4.5, Mg 2-2.3. Code(s): I50.43 - ACUTE ON CHRONIC COMBINED SYSTOLIC AND DIASTOLIC HRT FAIL (17) NSVT (nonsustained ventricular tachycardia) Assessment/Plan: Continue metoprolol, lisinopril, spironolactone. Maintain electrolytes WNL. Code(s): I47.2 - VENTRICULAR TACHYCARDIA (18) Sleep apnea Assessment/Plan: Pt sleeps fitfully at night, then seeps hours during the day. Recommend sleep studies to r/o sleep apnea.. Code(s): G47.30 - SLEEP APNEA, UNSPECIFIED
--- NOTE | 2016-10-18 13:03 | PN ---
Teaching Attending Note Name of Resident: Caty Jarrett ATTENDING PHYSICIAN STATEMENT I saw and evaluated the patient. I reviewed the resident's note and discussed the case with the resident. I agree with the resident's findings and plan as documented. SUBJECTIVE: Intermittent Abd pain, SOB is better . has no cough , denies dysuria . has no diarrhea . LE edema OBJECTIVE: NAD , flat affect . No facial droop, MMM. JVD LUngs: CTAB, decreased breath sounds b/l bases CV: RRR, 3/6 DM at LLSB , and 3/6 SM at apex Abd : soft, abd wall edema . TTP in periumbilical area. no TTP in RUQ. neg Stone's EXT: 2-3 + pitting edema on LE ( legs and thighs ) . erythema and brownish discoloration ASSESSMENT AND PLAN: 61 year old female, with a significant past medical history of hypertension, hypercholesterolemia, CAD, [place](X2, s/pp defibrillator/pacemaker and CABG), CHF, DM II, kidney stones , peripheral neuropathy, hypothyroidism, CCY , chronic transaminitis , and non compliance presented with abd pain and SOB , was found to have Acute S CHF exacerbationand bacteremia 1- Acute on chronic systolic CHF: still has significant amount of edema . her I& O net Positive and weight is worse. - increase lasix to 80 mg IV BID - insert moran for better monitoring. - cont Lisinopril , and decrease toprol to 75 to give room for diuresis 2- G+ Bacteremia : unclear source. urine cx is neg. no signs of PNA , and Lung bases with no infiltrate ( only atelectasis on R base on CT Abd/Pelvis ) . Her bilirubin is higher than her base line of 2-3, which could be due to acute congestion from acute CHF. but her abd pain and tenderness are not localized in RUQ. still the source of her infection can be biliary tract. CT scan of abd was not significant , and lacs IV contrast. LAT, AST at base line - check US of RUQ for CBD dilation - repeat blood cx - follow echo to r/o vegetation - cont Abx ( Cefazolin today ) - GI input appreciated 3- LIANNA : likely prerenal azotemia in setting of CHF improved already . - cont IV diuresis - monitor 4- Abd pain : chronic . - monitor 4- Chronic trop leak, at base line cont BB hold statin due to LFTS abn DVT px HLOC
[2016-10-18] MEDS: NICOTINE 21 MG/24 HOURS TOPICAL PATCH TD SCH (13:57)
--- NOTE | 2016-10-18 15:57 | PN ---
Physical Exam: SUBJECTIVE: Patient seen and examined at bed side this morning. Complained of mild abdominal pain, but no nausea or vomiting. Denies chest pain , palpitation, sob, cough, fever, chills, rigors or sweating. OBJECTIVE: Vital Signs Period Temp Pulse Resp BP Sys/Santoro Pulse Ox Last 24 Hr 97.3 F-98.4 F 67-76 20-20 89-108/38-59 100-100 GENERAL: Awake, alert, and fully oriented, in mild respiratory distress, on nasal oxygen. HEAD: Normal with no signs of trauma. EYES: EOM intact, no pallor or icterus. EARS, NOSE, THROAT: Ears normal. Moist mucous membranes. NECK: Normal range of motion, supple without lymphadenopathy,, or masses. elevated JVD LUNGS: B/L equal air entry, decreased breath sounds at the b/l bases.No wheezes. No accessory muscle use. HEART: Regular rate and rhythm, normal S1 and S2 with pansystolic and early diastolic murmur. ABDOMEN: Soft, tenderness over the left lower quadrant, distended, edematous, normoactive bowel sounds, no guarding, no rebound, no masses. No hepatomegaly or splenomegaly. MUSCULOSKELETAL: Normal range of motion at all joints. No bony deformities or tenderness. No CVA tenderness. UPPER EXTREMITIES: 2+ pulses, warm, well-perfused. No cyanosis. No clubbing. No peripheral edema. LOWER EXTREMITIES: 2+ pulses, warm, well-perfused. No calf tenderness. peripheral edema 2+ upto the knee and 1 + up to the thigh. Tenderness to light touch-improved. NEUROLOGICAL: Cranial nerves II-XII intact. Normal speech. Gait not observed PSYCHIATRIC: Cooperative. Good eye contact. Appropriate mood and affect. SKIN: Warm, dry, normal turgor, no rashes or lesions noted, normal capillary refill. Laboratory Results - last 24 hr 10/15/16 10/17/16 10/17/16 13:00 15:51 21:44 WBC RBC Hgb Hct MCV MCHC RDW Plt Count MPV Sodium Potassium Chloride Carbon Dioxide Anion Gap BUN Creatinine POC Glucometer 107 107 Random Glucose Calcium C-Reactive Protein Smooth Musc &SUPPLY CHAIN ENGINEER Intrp 18 10/18/16 10/18/16 10/18/16 05:06 05:35 05:35 WBC 13.4 H RBC 4.35 Hgb 11.3 Hct 35.0 MCV 80.5 MCHC 32.4 RDW 23.1 H Plt Count 159 MPV 9.0 Sodium 133 L Potassium 3.8 Chloride 91 L Carbon Dioxide 30 Anion Gap 12 BUN 25 H Creatinine 0.9 POC Glucometer 90 Random Glucose 70 L Calcium 8.6 C-Reactive Protein 14.0 H D Smooth Musc &SUPPLY CHAIN ENGINEER Intrp 10/18/16 10/18/16 05:35 11:21 WBC RBC Hgb Hct MCV MCHC RDW Plt Count MPV Sodium Potassium Chloride Carbon Dioxide Anion Gap BUN Creatinine POC Glucometer 126 Random Glucose Calcium C-Reactive Protein Cancelled Smooth Musc &SUPPLY CHAIN ENGINEER Intrp Active Medications Generic Name Dose Route Start Last Admin Trade Name Freq PRN Reason Stop Dose Admin Acetaminophen 650 mg 10/15/16 10:52 10/17/16 00:59 Tylenol - PO 650 mg Q6H PRN Administration FEVER OR PAIN Clopidogrel Bisulfate 75 mg 10/12/16 10:00 10/18/16 09:32 Plavix - PO 75 mg DAILY [facility] Administration Furosemide 80 mg 10/18/16 14:00 10/18/16 13:58 Lasix Injection - IVPUSH 80 mg BID@0600,1400 [facility] Administration Heparin Sodium (Porcine) 5,000 unit 10/11/16 22:00 10/18/16 13:58 Heparin - SQ 5,000 unit TID [facility] Administration Dextrose 1,000 mls @ 20 mls/hr 10/15/16 07:45 10/18/16 08:21 D10w - IV 20 mls/hr ASDIR [facility] Administration Insulin Aspart 1 vial 10/18/16 11:00 10/18/16 11:25 Novolog Vial Sliding Scale - SQ Not Given TIDAC [facility] Protocol Levothyroxine Sodium 75 mcg 10/12/16 07:00 10/18/16 06:33 Synthroid - PO 75 mcg DAILY@0700 [facility] Administration Lisinopril 5 mg 10/12/16 10:00 10/18/16 09:33 Prinivil PO 5 mg DAILY [facility] Administration Metoclopramide HCl 10 mg 10/14/16 23:07 10/17/16 01:15 Reglan Injection - IVPUSH 10 mg Q6H PRN Administration NAUSEA AND/OR VOMITING Metoprolol Succinate 75 mg 10/19/16 10:00 Toprol Xl - PO DAILY [facility] Nicotine 21 mg 10/18/16 13:45 10/18/16 13:57 Nicoderm Patch - TD 21 mg DAILY [facility] Administration Spironolactone 50 mg 10/12/16 10:00 10/18/16 09:32 Aldactone - PO 50 mg DAILY [facility] Administration 07/10/16 ECHO: Left ventricle is severely dilated. Moderate concentric left ventricular hypertrophy. Left ventricular systolic function is severely reduced. Right ventricle is moderately dilated. Right ventricular systolic function is moderate to severely reduced. Left atrium and right atrium is moderately dilated. Moderate MR. Moderate to severe Tricuspid regurgigation. Right ventricular systolic pressure elevated at 30-40mmHg. 10/18/2016 ECHO: Left ventricle severely dilated. Mild concentric left ventricular hypertrophy. Left ventricular systolic function is severely reduced. There is global hypokinesis of the left ventricle' Moderate MR< Mod to severe TR, no vegetations 10/15/[address] (without contrast) Clinical information: In comparison to a prior CT study of 08/22/2016 there is increased concentric subcutaneous edema along the abdomen and pelvis consistent with anasarca. Interval development of a small right pleural effusion is seen. The remainder of the study demonstrates no obvious interval change. No evidence of pneumoperitoneum or bowel obstruction. Trace ascites is again noted. Cardiomegaly. Transvenous cardiac pacemaker in place. Status post median sternotomy. Status post cholecystectomy The liver, spleen, pancreas, adrenal glands and kidneys demonstrate no obvious noncontrast abnormality. No obvious abscess is seen. There is no gross CT evidence of acute appendicitis or diverticulitis allowing for limited bowel opacification and lack of intravenous contrast as well as a paucity of intra-abdominal fat. Moderate atherosclerotic aortic dilatation without definite aneurysm formation. Prominent atherosclerotic vascular calcifications. Fibroid uterus. Lam catheter in place. Status post right hip replacement. CXR 10/12/16: Cardiomegaly and mild congestion. 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 # Group B Strep bacteremia- Unknown Etiology R/O GI source Less like urine culture is negative; less likely Pneumonia since chest x-ray didn't show any infiltrate Leukocytosis 13.1 ---> 13.4 Blood cultures x 2 positive for Group B strep agalactaciae; blood cultures repeated-report pending ECHO ordered to r/o vegetations- NO Vegetations, rest of the report as above. IV Vancomycin Day IV Zosyn stopped today and to continue cefazolin today To r/o source of biliary tract, ordered USG of abdomen to be done tomorrow as patient needs to be NPO for 6-8 hours. ID consult appreciated GI consult appreciated # Acute on chronic systolic CHF Has developed anasarca Admitted in Telemetry Continuous Cardiac monitoring, no acute events noted in the monitor. Strict Intake and output (positive) Daily Weight, 185 lbs on admission --->193 lbs BNP on admission: 1874 Continue Spironolactone 50 mg PO Daily Increase Lasix IV to 80 mg BID Cardiology consult appreciated # LIANNA likely prerenal- Resolved creatine 1.6--->1.1 ---> 0.9 Cannot give IV fluids as patient has fluid overload-anasarca due to CHF Nephrology consult appreciated Avoid Nephrotoxic drugs # Increased troponin: likely from [place]and ischemia Troponins trending down EKG: no acute changes on admission. # Hypokalemia with hypomagnesemia- Resolved. Resolved after repletion # Non compliance Patient has visited [facility] 8 times this year, goes to [facility] and other hospitals frequently, was recently discharged from [place] (last week) as per patients daughter. Patient is non compliant to medication at home and refuses medications here at the hospital. Needs constant counseling and family support or else patients medical condition will get worse due to non compliance. # Hypertension-Stable Metoprolol Succinate decreased to 75mg PO DAILY Lisinopril 5mg po daily # Hyperlipidemia Hold statins due to elevated liver enzymes (Was on Lipitor 20mg PO HS at home ) # DM HbA1c on 08/04- 6.6 Hypoglycemic especially in the morning. Since patient is not eating adequately PO added D10 @ 20mls/hr. Finger stick glucose monitoring Insulin sliding scale # CAD s/p [place] 2003, CABG in 2003 s/p stents2 Continue Plavix 75mg po daily # COPD: Not in exacerbation Duoneb PRN # Hypothyroidism TSH-0.25 08/23/16 Continue Synthoid 75 mcg po daily # Chronic Elevated liver enzymes with Hyperbilirubinemia Has done work up in the past. Hold Statins Avoid hepatotoxic drugs. GI consult appreciated # FEN D10 @ 20mls/hr. Electrolytes to be repeated tomorrow morning. Cardiac diet, Low Na diet , NPO after midnight for USG of abdomen tomorrow morning. # Prophylaxis For DVT: Heparin SQ TID For GI: Not indicated # Disposition: Admit to Telemetry. Duration of stay unknown. Illness, Investigation and Plan of care explained to the patient. She verbalized understanding. Case seen and discussed with Dr. Haas. Problem List - Problems (1) LIANNA (acute kidney injury) Code(s): N17.9 - ACUTE KIDNEY FAILURE, UNSPECIFIED (2) Abdominal pain Code(s): R10.9 - UNSPECIFIED ABDOMINAL PAIN (3) CHF (congestive heart failure) Code(s): I50.9 - HEART FAILURE, UNSPECIFIED (4) Elevated liver function tests Code(s): R94.5 - ABNORMAL RESULTS OF LIVER FUNCTION STUDIES (5) Noncompliance with medication regimen Code(s): Z91.14 - PATIENT'S OTHER NONCOMPLIANCE WITH MEDICATION REGIMEN Visit type - Emergency Visit Emergency Visit: Yes ED Registration Date: 10/11/16 Care time: The patient presented to the Emergency Department on the above date and was hospitalized for further evaluation of their emergent condition. - New Patient This patient is new to me today: No - Critical Care Critical Care patient: No - Discharge Referral Referred to [facility] Med P.C.: No
[2016-10-18] MEDS ORDERED: CEFAZOLIN (PRE-DOCKED) 50 ML IVPB ONE (17:31)
[2016-10-18] MEDS: CEFAZOLIN (PRE-DOCKED) 1 GM in DEXTROSE 5%-WATER - 50 ML IVPB SCH (17:32)
--- NOTE | 2016-10-18 17:33 | PN ---
Progress Note, Physician History of Present Illness: Pt seen and examined at bedside. She is awake and alert. She is eager to go home. She denies shortness of breath. - Current Medication List Current Medications: Active Medications Acetaminophen (Tylenol -) 650 mg PO Q6H PRN PRN Reason: FEVER OR PAIN Last Admin: 10/17/16 00:59 Dose: 650 mg Clopidogrel Bisulfate (Plavix -) 75 mg PO DAILY [facility] Last Admin: 10/18/16 09:32 Dose: 75 mg Furosemide (Lasix Injection -) 80 mg IVPUSH BID@0600,1400 [facility] Last Admin: 10/18/16 13:58 Dose: 80 mg Heparin Sodium (Porcine) (Heparin -) 5,000 unit SQ TID [facility] Last Admin: 10/18/16 13:58 Dose: 5,000 unit Dextrose (D10w -) 1,000 mls @ 20 mls/hr IV ASDIR [facility] Last Admin: 10/18/16 08:21 Dose: 20 mls/hr Cefazolin Sodium 1 gm/ (Dextrose) 100 mls @ 100 mls/hr IVPB Q8H-IV [facility] Insulin Aspart (Novolog Vial Sliding Scale -) 1 vial SQ TIDAC [facility] PRN Reason: Protocol Last Admin: 10/18/16 16:56 Dose: Not Given Levothyroxine Sodium (Synthroid -) 75 mcg PO DAILY@0700 [facility] Last Admin: 10/18/16 06:33 Dose: 75 mcg Lisinopril (Prinivil) 5 mg PO DAILY [facility] Last Admin: 10/18/16 09:33 Dose: 5 mg Metoclopramide HCl (Reglan Injection -) 10 mg IVPUSH Q6H PRN PRN Reason: NAUSEA AND/OR VOMITING Last Admin: 10/17/16 01:15 Dose: 10 mg Metoprolol Succinate (Toprol Xl -) 75 mg PO DAILY [facility] Nicotine (Nicoderm Patch -) 21 mg TD DAILY [facility] Last Admin: 10/18/16 13:57 Dose: 21 mg Spironolactone (Aldactone -) 50 mg PO DAILY [facility] Last Admin: 10/18/16 09:32 Dose: 50 mg - Objective Vital Signs: Vital Signs Temperature 97.8 F 10/18/16 07:00 Pulse Rate 74 10/18/16 07:00 Respiratory Rate 20 10/18/16 07:09 Blood Pressure 97/54 10/18/16 07:00 O2 Sat by Pulse Oximetry (%) 100 10/18/16 07:09 Constitutional: Yes: Calm Eyes: Yes: Conjunctiva Clear HENT: Yes: Atraumatic Cardiovascular: Yes: S1, S2 Respiratory: Yes: On Nasal O2 Gastrointestinal: Yes: Soft, Abdomen, Obese Genitourinary: Yes: WNL Musculoskeletal: Yes: WNL Edema: Yes Edema: LLE: 1+, RLE: 1+ Neurological: Yes: Oriented Psychiatric: Yes: Oriented Labs: CBC, BMP 10/18/16 05:35 10/18/16 05:35 Problem List - Problems (1) Abdominal pain Code(s): R10.9 - UNSPECIFIED ABDOMINAL PAIN (2) CHF (congestive heart failure) Code(s): I50.9 - HEART FAILURE, UNSPECIFIED (3) Sepsis Code(s): A41.9 - SEPSIS, UNSPECIFIED ORGANISM (4) LIANNA (acute kidney injury) Code(s): N17.9 - ACUTE KIDNEY FAILURE, UNSPECIFIED Assessment/Plan Current Medications Generic Name Dose Route Start Last Admin Trade Name Freq PRN Reason Stop Dose Admin Acetaminophen 650 mg 10/15/16 10:52 10/17/16 00:59 Tylenol - PO 650 mg Q6H PRN Administration FEVER OR PAIN Clopidogrel Bisulfate 75 mg 10/12/16 10:00 10/18/16 09:32 Plavix - PO 75 mg DAILY [facility] Administration Furosemide 80 mg 10/18/16 14:00 10/18/16 13:58 Lasix Injection - IVPUSH 80 mg BID@0600,1400 [facility] Administration Heparin Sodium (Porcine) 5,000 unit 10/11/16 22:00 10/18/16 13:58 Heparin - SQ 5,000 unit TID [facility] Administration Dextrose 1,000 mls @ 20 mls/hr 10/15/16 07:45 10/18/16 08:21 D10w - IV 20 mls/hr ASDIR [facility] Administration Cefazolin Sodium 1 gm/ 100 mls @ 100 mls/hr 10/18/16 18:00 Dextrose IVPB Q8H-IV [facility] Insulin Aspart 1 vial 10/18/16 11:00 10/18/16 16:56 Novolog Vial Sliding Scale - SQ Not Given TIDAC [facility] Protocol Levothyroxine Sodium 75 mcg 10/12/16 07:00 10/18/16 06:33 Synthroid - PO 75 mcg DAILY@0700 [facility] Administration Lisinopril 5 mg 10/12/16 10:00 10/18/16 09:33 Prinivil PO 5 mg DAILY [facility] Administration Metoclopramide HCl 10 mg 10/14/16 23:07 10/17/16 01:15 Reglan Injection - IVPUSH 10 mg Q6H PRN Administration NAUSEA AND/OR VOMITING Metoprolol Succinate 75 mg 10/19/16 10:00 Toprol Xl - PO DAILY [facility] Nicotine 21 mg 10/18/16 13:45 10/18/16 13:57 Nicoderm Patch - TD 21 mg DAILY [facility] Administration Spironolactone 50 mg 10/12/16 10:00 10/18/16 09:32 Aldactone - PO 50 mg DAILY [facility] Administration Impression 1. LIANNA 2. CHF 3. sepsis 4. CAD 5. DM 6. chol 7. COPD 8. hypothyroidism Plan - renal function is stabilizing - sodium is improving - cont with lasix - elevate legs when possible - will follow Dr Lowry
--- NOTE | 2016-10-18 18:17 | CON.PSY ---
Psychiatry Consult Chief Complaint: i was in pain, i feel a little depressed. Symptoms: reports: Depressed Mood - Previous Psychiatric Treatment Outpatient: None Inpatient: None - Previous Substance Abuse Treatment Outpatient: None Inpatient: None - Current Medications Current Medications: Active Medications Acetaminophen (Tylenol -) 650 mg PO Q6H PRN PRN Reason: FEVER OR PAIN Last Admin: 10/17/16 00:59 Dose: 650 mg Clopidogrel Bisulfate (Plavix -) 75 mg PO DAILY [facility] Last Admin: 10/18/16 09:32 Dose: 75 mg Furosemide (Lasix Injection -) 80 mg IVPUSH BID@0600,1400 [facility] Last Admin: 10/18/16 13:58 Dose: 80 mg Heparin Sodium (Porcine) (Heparin -) 5,000 unit SQ TID [facility] Last Admin: 10/18/16 13:58 Dose: 5,000 unit Dextrose (D10w -) 1,000 mls @ 20 mls/hr IV ASDIR [facility] Last Admin: 10/18/16 08:21 Dose: 20 mls/hr Cefazolin Sodium 1 gm/ (Dextrose) 100 mls @ 100 mls/hr IVPB Q8H-IV [facility] Last Admin: 10/18/16 17:32 Dose: 100 mls/hr Insulin Aspart (Novolog Vial Sliding Scale -) 1 vial SQ TIDAC [facility] PRN Reason: Protocol Last Admin: 10/18/16 16:56 Dose: Not Given Levothyroxine Sodium (Synthroid -) 75 mcg PO DAILY@0700 [facility] Last Admin: 10/18/16 06:33 Dose: 75 mcg Lisinopril (Prinivil) 5 mg PO DAILY [facility] Last Admin: 10/18/16 09:33 Dose: 5 mg Metoclopramide HCl (Reglan Injection -) 10 mg IVPUSH Q6H PRN PRN Reason: NAUSEA AND/OR VOMITING Last Admin: 10/17/16 01:15 Dose: 10 mg Metoprolol Succinate (Toprol Xl -) 75 mg PO DAILY [facility] Nicotine (Nicoderm Patch -) 21 mg TD DAILY [facility] Last Admin: 10/18/16 13:57 Dose: 21 mg Spironolactone (Aldactone -) 50 mg PO DAILY [facility] Last Admin: 10/18/16 09:32 Dose: 50 mg - Allergies Allergies: Allergies Allergy/AdvReac Type Severity Reaction Status Date / Time aspirin Allergy Mild Rash Verified 10/11/16 15:30 banana Allergy Hives Verified 10/15/16 14:29 tomato Allergy Verified 10/15/16 14:30 - Current Living Status Usual Living Arrangement: Alone - Current Mental Status Evaluation Attitude: Guarded - Affect Affect: Constrictive Appropriateness: Appropriate to Content - Mood Mood: Depressed - Speech/Language Expressive: Coherent - Psychomotor Activity Psychomotor Activity: Normal - Thought Process Thought Process: Intact - Thought Content Hallucinations: Absent Delusions: Absent - Self Perception Self Perception: No Impairment - Cognition Attention: Alert Orientation: Time Memory, Immediate Recall: Intact Memory, Short Term: 2/3 Memory, Remote with Promptin/3 - Concentration Serial Sevens Intact: No Simple Calculations Intact: No - Abstraction Proverb Interpretation: Intact Judgement: Minimally Impaired - Insight Insight: Intact - Impulse Control Impulse Control: Minimally Impaired - Suicidal Ideation Suicidal Ideation: No - Homicidal Ideation Homicidal Ideation: No Assessment/Plan cymbalta 20mg po od
[2016-10-19] MEDS: CEFAZOLIN (PRE-DOCKED) 1 GM in DEXTROSE 5%-WATER - 50 ML IVPB SCH ×2 (03:29→09:32)
[2016-10-19] MEDS: LEVOTHYROXINE NA 75 MCG TABLET (FP) PO SCH (06:50)
[2016-10-19] MEDS: FUROSEMIDE 40 MG/4 ML INJECTABLE VIAL IVPUSH SCH ×2 (06:51→13:39)
[2016-10-19] MEDS: HEPARIN NA (PORCINE) 5,000 UNITS/ML 1ML VIAL SQ SCH ×3 (06:52→22:27)
[2016-10-19 08:18] LABS: MCH 25.9 pg (25.7-33.7); MCHC 32.3 g/dl (32.0-36.0); MEAN CELL VOLUME 80.4 fl (80-96); MEAN PLT VOLUME 8.6 fl (7.5-11.1); PLATELET COUNT 154 K/MM3 (134-434); WHITE BLOOD COUNT 11.3 K/mm3 (4.0-10.0)
--- NOTE | 2016-10-19 08:34 | PN ---
Physical Exam: SUBJECTIVE: Patient seen and examined at bed side this morning. Complaints of slight abdominal pain but says she feels better than yesterday. She requested if the moran catheter could be taken out. Explained to her its better for strict output measurements, she agreed. Denies chest pain, sob, cough, palpitation, nausea or vomiting. Had one bowel movement yesterday. Sleep/Appetite normal. OBJECTIVE: Vital Signs Period Temp Pulse Resp BP Sys/Santoro Pulse Ox Last 24 Hr 98 F-99.4 F 84-93 20-20 101-121/54-74 100-100 GENERAL: AA female, sitting comfortably in a chair, Awake, alert, and fully oriented, in no acute distress. HEAD: Normal with no signs of trauma. EYES: EOM intact, no pallor or icterus. EARS, NOSE, THROAT: Ears normal. Moist mucous membranes. NECK: Normal range of motion, supple without lymphadenopathy,, or masses. No JVD LUNGS: B/L equal air entry, decreased breath sounds at the b/l bases. No crackles. No wheezes. No accessory muscle use. HEART: Regular rate and rhythm, normal S1 and S2 with pansystolic murmur. ABDOMEN: Soft, tenderness around the umbilical area, distended, edematous, normoactive bowel sounds, no guarding, no rebound, no masses. No hepatomegaly or splenomegaly. MUSCULOSKELETAL: Normal range of motion at all joints. No bony deformities or tenderness. No CVA tenderness. UPPER EXTREMITIES: 2+ pulses, warm, well-perfused. No cyanosis. No clubbing. No peripheral edema. LOWER EXTREMITIES: 2+ pulses, warm, well-perfused. No calf tenderness. peripheral edema 2+ upto the knee and 1 + up to the thigh. Tenderness to light touch-improved. NEUROLOGICAL: Cranial nerves II-XII intact. Normal speech. Gait not observed PSYCHIATRIC: Cooperative. Good eye contact. Appropriate mood and affect. SKIN: Warm, dry, normal turgor, no rashes or lesions noted, normal capillary refill. Laboratory Results - last 24 hr 10/18/16 10/18/16 10/18/16 05:35 05:35 11:21 WBC RBC Hgb Hct MCV MCHC RDW Plt Count MPV POC Glucometer 126 C-Reactive Protein 14.0 H D Cancelled 10/18/16 10/19/16 10/19/16 16:52 06:00 06:16 WBC 11.3 H RBC 4.40 Hgb 11.4 Hct 35.3 MCV 80.4 MCHC 32.3 RDW 23.0 H Plt Count 154 MPV 8.6 POC Glucometer 102 118 C-Reactive Protein Active Medications Generic Name Dose Route Start Last Admin Trade Name Freq PRN Reason Stop Dose Admin Acetaminophen 650 mg 10/15/16 10:52 10/17/16 00:59 Tylenol - PO 650 mg Q6H PRN Administration FEVER OR PAIN Clopidogrel Bisulfate 75 mg 10/12/16 10:00 10/18/16 09:32 Plavix - PO 75 mg DAILY [facility] Administration Duloxetine HCl 20 mg 10/19/16 10:00 Cymbalta - PO DAILY [facility] Furosemide 80 mg 10/18/16 14:00 10/19/16 06:51 Lasix Injection - IVPUSH 80 mg BID@0600,1400 [facility] Administration Heparin Sodium (Porcine) 5,000 unit 10/11/16 22:00 10/19/16 06:52 Heparin - SQ Not Given TID [facility] Dextrose 1,000 mls @ 20 mls/hr 10/15/16 07:45 10/18/16 08:21 D10w - IV 20 mls/hr ASDIR [facility] Administration Cefazolin Sodium 1 gm/ 100 mls @ 100 mls/hr 10/18/16 18:00 10/19/16 03:29 Dextrose IVPB 100 mls/hr Q8H-IV [facility] Administration Insulin Aspart 1 vial 10/18/16 11:00 10/18/16 16:56 Novolog Vial Sliding Scale - SQ Not Given TIDAC [facility] Protocol Levothyroxine Sodium 75 mcg 10/12/16 07:00 10/19/16 06:50 Synthroid - PO 75 mcg DAILY@0700 [facility] Administration Lisinopril 5 mg 10/12/16 10:00 10/18/16 09:33 Prinivil PO 5 mg DAILY [facility] Administration Metoclopramide HCl 10 mg 10/14/16 23:07 10/17/16 01:15 Reglan Injection - IVPUSH 10 mg Q6H PRN Administration NAUSEA AND/OR VOMITING Metoprolol Succinate 75 mg 10/19/16 10:00 Toprol Xl - PO DAILY [facility] Nicotine 21 mg 10/18/16 13:45 10/18/16 13:57 Nicoderm Patch - TD 21 mg DAILY [facility] Administration Spironolactone 50 mg 10/12/16 10:00 10/18/16 09:32 Aldactone - PO 50 mg DAILY [facility] Administration 10/19/16: Status post cholecystectomy. Mild hepatomegaly with a slightly coarse echotexture rule out fatty infiltration versus hepatocellular disease. Notes made of right pleural effusion. Right renal cyst measuring 2.2 x 1.8 cm ASSESSMENT/PLAN: Patient is a 61 year old female frequent flyer and non complaint patient with chronic abdominal pain (thought to be due to liver cirrhosis/biliary tree strictures s/p lap naomi for acalcalous cholecystitis 05/05), hyperbilirubinemia , HTN, HLD, DM, CAD s/p [place] 2003, CABG in 2003 s/p stents2, Systolic CHF s/p ICD /Pacemaker, COPD, current smoker, hypothyroid & peripheral neuropathy presented to the ED with the chief complaint of worsening shortness of breath. # Group B Strep bacteremia- Unknown Etiology R/O biliary source, Less like urine infection since culture is negative; less likely Pneumonia since chest x-ray didn't show any infiltrate Leukocytosis 13.4--->11.3 Blood cultures x 2 positive for Group B strep agalactaciae; blood cultures repeated-report pending NO Vegetations in ECHO IV Cefazolin 1gm Q8H Day 2 USG abdomen to r/o biliary tract source, report mentioned as above. ID consult appreciated GI consult requested, will talk to Dr. Evans regarding patients further management. # Acute on chronic systolic CHF Admitted in Telemetry Continuous Cardiac monitoring, no acute events noted in the monitor. Strict Intake and output (negative 470 over 24 hours) Daily Weight, 185 lbs on admission, yesterday 196 lbs ---->190 lbs Today BNP on admission: 1874 Continue Spironolactone 50 mg PO Daily Increase Lasix IV to 80 mg BID Cardiology consult appreciated # LIANNA likely prerenal- Resolved creatine 1.6--->1.1 ---> 0.9 Cannot give IV fluids as patient has fluid overload-anasarca due to CHF Nephrology consult appreciated Avoid Nephrotoxic drugs # Non compliance Patient has visited [facility] 8 times this year, goes to [facility] and other hospitals frequently, was recently discharged from [place] (last week) as per patients daughter. Patient is non compliant to medication at home and refuses medications here at the hospital. Needs constant counseling and family support or else patients medical condition will get worse due to non compliance. # Hypertension-Stable Metoprolol Succinate decreased to 75mg PO DAILY Lisinopril 5mg po daily # Hyperlipidemia Hold statins due to elevated liver enzymes (Was on Lipitor 20mg PO HS at home ) # DM HbA1c on 08/04- 6.6 Hypoglycemic especially in the morning. Since patient is not eating adequately PO added D10 @ 20mls/hr. Finger stick glucose monitoring Insulin sliding scale # CAD s/p [place] 2003, CABG in 2003 s/p stents2 Continue Plavix 75mg po daily # COPD: Not in exacerbation Duoneb PRN # Hypothyroidism TSH-0.25 08/23/16 Continue Synthoid 75 mcg po daily # Chronic Elevated liver enzymes with Hyperbilirubinemia Has done work up in the past. Called placed to Dr. San ([phone]) to get past records, there was no answer Hold Statins. Avoid hepatotoxic drugs. GI consult appreciated # FEN Stopped IV fluids. Electrolytes to be repeated tomorrow morning. Cardiac diet, Low Na diet # Prophylaxis For DVT: Heparin SQ TID For GI: Not indicated # Disposition: Admit to Telemetry. Duration of stay unknown. Illness, Investigation and Plan of care explained to the patient. She verbalized understanding. Case seen and discussed with Dr. Haas. Problem List - Problems (1) LIANNA (acute kidney injury) Code(s): N17.9 - ACUTE KIDNEY FAILURE, UNSPECIFIED (2) Abdominal pain Code(s): R10.9 - UNSPECIFIED ABDOMINAL PAIN (3) CHF (congestive heart failure) Code(s): I50.9 - HEART FAILURE, UNSPECIFIED (4) Elevated liver function tests Code(s): R94.5 - ABNORMAL RESULTS OF LIVER FUNCTION STUDIES (5) Noncompliance with medication regimen Code(s): Z91.14 - PATIENT'S OTHER NONCOMPLIANCE WITH MEDICATION REGIMEN Visit type - Emergency Visit Emergency Visit: Yes ED Registration Date: 10/11/16 Care time: The patient presented to the Emergency Department on the above date and was hospitalized for further evaluation of their emergent condition. - New Patient This patient is new to me today: No - Critical Care Critical Care patient: No - Discharge Referral Referred to [facility] No
[2016-10-19] MEDS: INSULIN SLIDING SCALE (NOVOLOG) 1 VIAL SQ SCH ×3 (08:36→16:18)
[2016-10-19] MEDS ORDERED: PT OWN MED DRAWER 7, Y5N ONE ×2 (08:48→09:35)
[2016-10-19 09:25] LABS: ALBUMIN 2.2 g/dl (3.4-5.0); ALK PHOS 174 U/L (45-117); ANION GAP 10 (8-16); BILIRUBIN,TOTAL 5.2 mg/dL (0.2-1.0); CALCIUM 8.5 mg/dL (8.5-10.1); CO2 33 mmol/L (21-32); CREATININE 0.8 mg/dL (0.55-1.02); GLUCOSE,RANDOM 99 mg/dL (74-106); SGOT/AST 31 U/L (15-37); SGPT/ALT 20 U/L (12-78); TOT PROT 5.7 g/dl (6.4-8.2)
[2016-10-19] MEDS: CLOPIDOGREL BISULFATE 75 MG TABLET (FP) PO SCH (09:33)
[2016-10-19] MEDS: LISINOPRIL 5 MG TABLET (FP) PO SCH (09:33)
[2016-10-19] MEDS: NICOTINE 21 MG/24 HOURS TOPICAL PATCH TD SCH (09:33)
[2016-10-19] MEDS: METOPROLOL SUCCINATE 25 MG TAB.SR.24H (FP) PO SCH (09:33)
[2016-10-19] MEDS: SPIRONOLACTONE 25 MG TABLET (FP) PO SCH (09:33)
[2016-10-19] MEDS: DEXTROSE 10%-WATER - 1,000 ML IV SCH (09:34)
[2016-10-19] MEDS: DULoxetine HCL 20 MG CAPSULE.DR (FP) PO SCH (09:36)
--- NOTE | 2016-10-19 10:06 | PN ---
Progress Note, Physician Chief Complaint: Pt sitting in chair; no chest pain, abdominal pain, or dypsnea; c/o irritation from Lam catheter. History of Present Illness: The patient is a 61 year old black female, with a significant past medical history of hypertension, hyperlipidemia, Dm, CAD s/p defibrillator/pacemaker s/ p CABG, [place], severe systolic CHF, hypothyroidism, kidney stones, peripheral neuropathy, anxiety/depression, who presents to the emergency department from the office of Dr. San at the liver transplant center at [facility], a week after being discharged (ED visit on 10/04/16) for worsening shortness of breath and lower extremity edema today. The patient reports exertional SOB. She states she can walk for a few minutes, but states she has to sit and rest secondary to her dyspnea. She states her lower extremities are more swollen today, but admits to taking her medications today. She also reports diffuse abdominal discomfort today. She states she recently changed her PMD, but denies having made an appointment to meet the new PMD, Dr. Rueda. As per discharge summary from Dr. San, the patient was being seen for hepatomegaly to evaluate for autoimmune hepatitis. The patient is not currently on medication for her liver. She denies chest pain, headache and dizziness. She denies fever, chills, nausea , vomit, diarrhea and constipation. She denies dysuria, frequency, urgency and hematuria. Allergies: aspirin Past surgical history: PEG tube placement, Stents x2, CABG (2003), ICD/ Pacemaker (November), cholecystectomy (April 2016) Social history: current everyday tobacco use (3 cigarettes daily). Denies alcohol or drug use PCP - Dr. Parrish Ferrer/ Dr. Rueda Burner Technician - Dr. Dick Cage - Current Medication List Current Medications: Active Medications Acetaminophen (Tylenol -) 650 mg PO Q6H PRN PRN Reason: FEVER OR PAIN Last Admin: 10/17/16 00:59 Dose: 650 mg Clopidogrel Bisulfate (Plavix -) 75 mg PO DAILY [facility] Last Admin: 10/19/16 09:33 Dose: 75 mg Duloxetine HCl (Cymbalta -) 20 mg PO DAILY [facility] Last Admin: 10/19/16 09:36 Dose: 20 mg Furosemide (Lasix Injection -) 80 mg IVPUSH BID@0600,1400 [facility] Last Admin: 10/19/16 06:51 Dose: 80 mg Heparin Sodium (Porcine) (Heparin -) 5,000 unit SQ TID [facility] Last Admin: 10/19/16 06:52 Dose: Not Given Dextrose (D10w -) 1,000 mls @ 20 mls/hr IV ASDIR [facility] Last Admin: 10/19/16 09:34 Dose: 20 mls/hr Cefazolin Sodium 1 gm/ (Dextrose) 100 mls @ 100 mls/hr IVPB Q8H-IV [facility] Last Admin: 10/19/16 09:32 Dose: 100 mls/hr Insulin Aspart (Novolog Vial Sliding Scale -) 1 vial SQ TIDAC [facility] PRN Reason: Protocol Last Admin: 10/19/16 08:36 Dose: Not Given Levothyroxine Sodium (Synthroid -) 75 mcg PO DAILY@0700 [facility] Last Admin: 10/19/16 06:50 Dose: 75 mcg Lisinopril (Prinivil) 5 mg PO DAILY [facility] Last Admin: 10/19/16 09:33 Dose: 5 mg Metoclopramide HCl (Reglan Injection -) 10 mg IVPUSH Q6H PRN PRN Reason: NAUSEA AND/OR VOMITING Last Admin: 10/17/16 01:15 Dose: 10 mg Metoprolol Succinate (Toprol Xl -) 75 mg PO DAILY [facility] Last Admin: 10/19/16 09:33 Dose: 75 mg Nicotine (Nicoderm Patch -) 21 mg TD DAILY [facility] Last Admin: 10/19/16 09:33 Dose: 21 mg Spironolactone (Aldactone -) 50 mg PO DAILY [facility] Last Admin: 10/19/16 09:33 Dose: 50 mg - Objective Vital Signs: Vital Signs Temperature 98 F 10/19/16 07:22 Pulse Rate 93 H 10/19/16 07:22 Respiratory Rate 20 10/19/16 07:30 Blood Pressure 103/57 10/19/16 07:22 O2 Sat by Pulse Oximetry (%) 100 10/19/16 07:30 Constitutional: Yes: Calm Eyes: Yes: WNL HENT: Yes: WNL Neck: Yes: WNL Cardiovascular: Yes: S1, S2 (split) Respiratory: Yes: WNL Gastrointestinal: Yes: Soft. No: Distention ...Rectal Exam: Yes: Deferred Genitourinary: No: Anuria Integumentary: Yes: WNL Neurological: Yes: Alert, Oriented, Weakness Psychiatric: Yes: Alert, Oriented, Other (depression) Labs: CBC, BMP 10/19/16 06:00 10/19/16 06:00 Abnormal Lab Results 10/19/16 10/19/16 06:00 06:00 WBC 11.3 H RDW 23.0 H Sodium 135 L Potassium 3.1 L Chloride 92 L Carbon Dioxide 33 H BUN 20 H Total Bilirubin 5.2 H Direct Bilirubin 4.1 H Alkaline Phosphatase 174 H D Total Protein 5.7 L Albumin 2.2 L - ....Imaging Other: Image Reviewed (telemetry: NSR; periods of ventricular pacing) Problem List - Problems (1) Dyspepsia Code(s): K30 - FUNCTIONAL DYSPEPSIA (2) Hyperbilirubinemia Code(s): E80.6 - OTHER DISORDERS OF BILIRUBIN METABOLISM (3) Hyperlipidemia Code(s): E78.5 - HYPERLIPIDEMIA, UNSPECIFIED (4) Hypertension Code(s): I10 - ESSENTIAL (PRIMARY) HYPERTENSION (5) Peripheral neuropathy Code(s): G62.9 - POLYNEUROPATHY, UNSPECIFIED (6) Status post THR (total hip replacement) Code(s): Z96.649 - PRESENCE OF UNSPECIFIED ARTIFICIAL HIP JOINT (7) Postoperative abdominal pain Code(s): R10.9 - UNSPECIFIED ABDOMINAL PAIN G89.18 - OTHER ACUTE POSTPROCEDURAL PAIN (8) Hypokalemia Assessment/Plan: replete K+ (now 3.1). Keep K 4-4.5 Keep Mg 2-2.3 Keep PO4 2.5-3.0 Code(s): E87.6 - HYPOKALEMIA (9) Lower extremity edema Code(s): R60.0 - LOCALIZED EDEMA (10) Cigarette nicotine dependence Assessment/Plan: Pt continues to say she smokes only a few cigarettes a day, though her daughter says she smokes much more. Code(s): F17.210 - NICOTINE DEPENDENCE, CIGARETTES, UNCOMPLICATED (11) Coronary artery disease Assessment/Plan: Diet, exercise, medications, and smoking cessation to aid in preventing further need for PCI and to avoid cardiac events. Code(s): I25.10 - ATHSCL HEART DISEASE OF [place] CORONARY ARTERY W/O ANG PCTRS (12) Depression Code(s): F32.9 - MAJOR DEPRESSIVE DISORDER, SINGLE EPISODE, UNSPECIFIED (13) Diabetes Code(s): E11.9 - TYPE 2 DIABETES MELLITUS WITHOUT COMPLICATIONS Qualifiers: Diabetes mellitus type: type 2 Diabetes mellitus complication status: with unspecified complications Diabetes mellitus half-way insulin use: with termite control servicer use Qualified Code(s): E11.8 - Type 2 diabetes mellitus with unspecified complications; Z79.4 - custodial (current) use of insulin (14) Hypothyroidism Assessment/Plan: f/u TFTs (free T4 mildly elevated 05/2016). Code(s): E03.9 - HYPOTHYROIDISM, UNSPECIFIED (15) ICD (implantable cardioverter-defibrillator) in place Assessment/Plan: recently interrogated; occasional episodes of NSVT. Code(s): Z95.810 - PRESENCE OF AUTOMATIC (IMPLANTABLE) CARDIAC DEFIBRILLATOR (16) Acute on chronic systolic and diastolic heart failure, NYHA class 1 Assessment/Plan: Continue present medication; f/u BUN/Cr, Is and Os (has Lam), electrolytes, daily weight. Replete K+: f/u Mg2+. Code(s): I50.43 - ACUTE ON CHRONIC COMBINED SYSTOLIC AND DIASTOLIC HRT FAIL (17) NSVT (nonsustained ventricular tachycardia) Code(s): I47.2 - VENTRICULAR TACHYCARDIA (18) Sleep apnea Code(s): G47.30 - SLEEP APNEA, UNSPECIFIED
--- NOTE | 2016-10-19 10:31 | PN ---
Teaching Attending Note Name of Resident: Caty Jarrett ATTENDING PHYSICIAN STATEMENT I saw and evaluated the patient. I reviewed the resident's note and discussed the case with the resident. I agree with the resident's findings and plan as documented. SUBJECTIVE: no fever or chills, abd pain is better , has less edema in LE. OBJECTIVE: NAD, flat affect. more communicative today No facial droop, MMM. JVD Lungs: CTAB, decreased breath sounds b/l bases CV: RRR, 3/6 DM at LLSB , and 3/6 SM at apex Abd: suboptimal exam as she is in sitting position . soft, decreased abd wall edema. TTP in periumbilical area. EXT: 2-3 + pitting edema on LE ( legs and thighs ). erythema and brownish discoloration ASSESSMENT AND PLAN: 61 year old female, with a significant past medical history of hypertension, hypercholesterolemia, CAD, [place](X2, s/pp defibrillator/pacemaker and CABG), CHF, DM II, kidney stones , peripheral neuropathy, hypothyroidism, CCY , chronic transaminitis , and non compliance presented with abd pain and SOB , was found to have Acute S CHF exacerbation and bacteremia 1- Acute on chronic systolic CHF: improved UOP with increased lasix dose. I&O Neg 400 cc. weight has improved - Cont lasix 80 mg IV BID - cont Lisinopril , and decreased dose of toprol to give room for diuresis 2- G+ Bacteremia : unclear source. urine cx is neg. no evidence of PNA Her bilirubin is higher than her base line of 2-3, which could be due to acute congestion from acute CHF. still the source of her infection can be biliary tract. CT scan of abd was not significant , and lacks IV contrast. LAT, AST at base line - US of abd to evaluate for CBD dialtion - repeat blood cx neg to date - Echo with no vegetations - cont Cefazolin - GI input appreciated 3- LIANNA : likely prerenal azotemia in setting of CHF improved already. - cont IV diuresis - monitor 4- Chronic trop leak, at base line cont BB hold statin due to LFTS abn 5- hypoglycemia : due to poor po intake. resolved . her PO intake improved. Dc D10 . DVT px HLOC
[2016-10-19] MEDS: POTASSIUM CHLORIDE ORAL LIQUID 20 MEQ/15 ML PO ONE ×2 (10:34→10:43)
[2016-10-19] MEDS ORDERED: POTASSIUM CHLORIDE ORAL LIQUID 20 MEQ/15 ML PO ONE (11:00)
[2016-10-19 11:16] LABS: BILIRUBIN,DIRECT 4.1 mg/dL (0.0-0.2); MAGNESIUM 1.8 mg/dL (1.8-2.4)
--- NOTE | 2016-10-19 11:29 | PN ---
Progress Note, Physician Chief Complaint: ID Sitting in a chair quite comfortable though complains about moran Cefazolin - Current Medication List Current Medications: Active Medications Acetaminophen (Tylenol -) 650 mg PO Q6H PRN PRN Reason: FEVER OR PAIN Last Admin: 10/17/16 00:59 Dose: 650 mg Clopidogrel Bisulfate (Plavix -) 75 mg PO DAILY [facility] Last Admin: 10/19/16 09:33 Dose: 75 mg Duloxetine HCl (Cymbalta -) 20 mg PO DAILY [facility] Last Admin: 10/19/16 09:36 Dose: 20 mg Furosemide (Lasix Injection -) 80 mg IVPUSH BID@0600,1400 [facility] Last Admin: 10/19/16 06:51 Dose: 80 mg Heparin Sodium (Porcine) (Heparin -) 5,000 unit SQ TID [facility] Last Admin: 10/19/16 06:52 Dose: Not Given Cefazolin Sodium/Dextrose (Ancef 2 Gm Premixed Ivpb -) 50 mls @ 100 mls/hr IVPB Q8H-IV [facility] Insulin Aspart (Novolog Vial Sliding Scale -) 1 vial SQ TIDAC [facility] PRN Reason: Protocol Last Admin: 10/19/16 08:36 Dose: Not Given Levothyroxine Sodium (Synthroid -) 75 mcg PO DAILY@0700 [facility] Last Admin: 10/19/16 06:50 Dose: 75 mcg Lisinopril (Prinivil) 5 mg PO DAILY [facility] Last Admin: 10/19/16 09:33 Dose: 5 mg Metoclopramide HCl (Reglan Injection -) 10 mg IVPUSH Q6H PRN PRN Reason: NAUSEA AND/OR VOMITING Last Admin: 10/17/16 01:15 Dose: 10 mg Metoprolol Succinate (Toprol Xl -) 75 mg PO DAILY [facility] Last Admin: 10/19/16 09:33 Dose: 75 mg Nicotine (Nicoderm Patch -) 21 mg TD DAILY [facility] Last Admin: 10/19/16 09:33 Dose: 21 mg Spironolactone (Aldactone -) 50 mg PO DAILY [facility] Last Admin: 10/19/16 09:33 Dose: 50 mg - Objective Vital Signs: Vital Signs Temperature 98 F 10/19/16 07:22 Pulse Rate 93 H 10/19/16 07:22 Respiratory Rate 20 10/19/16 07:30 Blood Pressure 103/57 10/19/16 07:22 O2 Sat by Pulse Oximetry (%) 100 10/19/16 07:30 Constitutional: Yes: No Distress Neck: Yes: WNL, Supple Cardiovascular: Yes: Regular Rate and Rhythm, Murmur, S1, S2 Respiratory: Yes: Regular, CTA Bilaterally Gastrointestinal: Yes: Soft. No: Tenderness Labs: CBC, BMP 10/19/16 06:00 10/19/16 06:00 Problem List - Problems (1) Acute on chronic systolic and diastolic heart failure, NYHA class 1 Code(s): I50.43 - ACUTE ON CHRONIC COMBINED SYSTOLIC AND DIASTOLIC HRT FAIL (2) Sepsis Code(s): A41.9 - SEPSIS, UNSPECIFIED ORGANISM (3) Abdominal pain Code(s): R10.9 - UNSPECIFIED ABDOMINAL PAIN Assessment/Plan Microbiology 10/15/16 08:19 Blood - Peripheral Venous Blood Culture - Final Strep Agalactiae Group B 10/15/16 08:18 Blood - Peripheral Venous Blood Culture - Final Strep Agalactiae Group B 10/18/16 09:03 Blood - Peripheral Venous Blood Culture - Preliminary NO GROWTH OBTAINED AFTER 24 HOURS, INCUBATION TO CONTINUE FOR 4 DAYS. 10/18/16 08:52 Blood - Peripheral Venous Blood Culture - Preliminary NO GROWTH OBTAINED AFTER 24 HOURS, INCUBATION TO CONTINUE FOR 4 DAYS. Laboratory Tests 10/19/16 10/19/16 06:00 06:00 WBC 11.3 H Hgb 11.4 Plt Count 154 Direct Bilirubin 4.1 H AST 31 Alkaline Phosphatase 174 H D Assessment Group B strep bacteremia occult source responding to treatment Has an implantable defibrillator/ Valvular heart disease Plan May be forced to treat for 4 weeks rather then 2 ? ANGY Was staying away from Ceftriaxone because of Liver enzymes up [facility]el [facility]
[2016-10-19] MEDS ORDERED: POTASSIUM CHLORIDE TABS 20 MEQ TABLET.ER (FP) PO ONE (12:00)
--- NOTE | 2016-10-19 12:51 | PN ---
Progress Note, Physician History of Present Illness: Pt seen and examined at bedside. She is awake and alert. She complains from discomfort from moran. - Current Medication List Current Medications: Active Medications Acetaminophen (Tylenol -) 650 mg PO Q6H PRN PRN Reason: FEVER OR PAIN Last Admin: 10/17/16 00:59 Dose: 650 mg Clopidogrel Bisulfate (Plavix -) 75 mg PO DAILY [facility] Last Admin: 10/19/16 09:33 Dose: 75 mg Duloxetine HCl (Cymbalta -) 20 mg PO DAILY [facility] Last Admin: 10/19/16 09:36 Dose: 20 mg Furosemide (Lasix Injection -) 80 mg IVPUSH BID@0600,1400 [facility] Last Admin: 10/19/16 06:51 Dose: 80 mg Heparin Sodium (Porcine) (Heparin -) 5,000 unit SQ TID [facility] Last Admin: 10/19/16 06:52 Dose: Not Given Cefazolin Sodium/Dextrose (Ancef 2 Gm Premixed Ivpb -) 50 mls @ 100 mls/hr IVPB Q8H-IV [facility] Insulin Aspart (Novolog Vial Sliding Scale -) 1 vial SQ TIDAC [facility] PRN Reason: Protocol Last Admin: 10/19/16 11:50 Dose: Not Given Levothyroxine Sodium (Synthroid -) 75 mcg PO DAILY@0700 [facility] Last Admin: 10/19/16 06:50 Dose: 75 mcg Lisinopril (Prinivil) 5 mg PO DAILY [facility] Last Admin: 10/19/16 09:33 Dose: 5 mg Metoclopramide HCl (Reglan Injection -) 10 mg IVPUSH Q6H PRN PRN Reason: NAUSEA AND/OR VOMITING Last Admin: 10/17/16 01:15 Dose: 10 mg Metoprolol Succinate (Toprol Xl -) 75 mg PO DAILY [facility] Last Admin: 10/19/16 09:33 Dose: 75 mg Nicotine (Nicoderm Patch -) 21 mg TD DAILY [facility] Last Admin: 10/19/16 09:33 Dose: 21 mg Spironolactone (Aldactone -) 50 mg PO DAILY [facility] Last Admin: 10/19/16 09:33 Dose: 50 mg - Objective Vital Signs: Vital Signs Temperature 98 F 10/19/16 07:22 Pulse Rate 93 H 10/19/16 07:22 Respiratory Rate 20 10/19/16 07:30 Blood Pressure 103/57 10/19/16 07:22 O2 Sat by Pulse Oximetry (%) 100 10/19/16 07:30 Constitutional: Yes: Calm Eyes: Yes: Conjunctiva Clear HENT: Yes: Atraumatic Neck: Yes: Supple Cardiovascular: Yes: S1, S2 Respiratory: Yes: CTA Bilaterally Gastrointestinal: Yes: Normal Bowel Sounds, Soft Genitourinary: Yes: Moran Present Musculoskeletal: Yes: Muscle Weakness Edema: Yes Edema: LLE: 2+, RLE: 2+ Neurological: Yes: Oriented Psychiatric: Yes: Oriented Labs: CBC, BMP 10/19/16 06:00 10/19/16 06:00 Problem List - Problems (1) Abdominal pain Code(s): R10.9 - UNSPECIFIED ABDOMINAL PAIN (2) CHF (congestive heart failure) Code(s): I50.9 - HEART FAILURE, UNSPECIFIED (3) Sepsis Code(s): A41.9 - SEPSIS, UNSPECIFIED ORGANISM (4) LIANNA (acute kidney injury) Code(s): N17.9 - ACUTE KIDNEY FAILURE, UNSPECIFIED Assessment/Plan Current Medications Generic Name Dose Route Start Last Admin Trade Name Freq PRN Reason Stop Dose Admin Acetaminophen 650 mg 10/15/16 10:52 10/17/16 00:59 Tylenol - PO 650 mg Q6H PRN Administration FEVER OR PAIN Clopidogrel Bisulfate 75 mg 10/12/16 10:00 10/19/16 09:33 Plavix - PO 75 mg DAILY RINA Administration Duloxetine HCl 20 mg 10/19/16 10:00 10/19/16 09:36 Cymbalta - PO 20 mg DAILY RINA Administration Furosemide 80 mg 10/18/16 14:00 10/19/16 06:51 Lasix Injection - IVPUSH 80 mg BID@0600,1400 RINA Administration Heparin Sodium (Porcine) 5,000 unit 10/11/16 22:00 10/19/16 06:52 Heparin - SQ Not Given TID [facility] Cefazolin Sodium/Dextrose 50 mls @ 100 mls/hr 10/19/16 18:00 Ancef 2 Gm Premixed Ivpb - IVPB Q8H-IV [facility] Insulin Aspart 1 vial 10/18/16 11:00 10/19/16 11:50 Novolog Vial Sliding Scale - SQ Not Given TIDAC [facility] Protocol Levothyroxine Sodium 75 mcg 10/12/16 07:00 10/19/16 06:50 Synthroid - PO 75 mcg DAILY@0700 RINA Administration Lisinopril 5 mg 10/12/16 10:00 10/19/16 09:33 Prinivil PO 5 mg DAILY RINA Administration Metoclopramide HCl 10 mg 10/14/16 23:07 10/17/16 01:15 Reglan Injection - IVPUSH 10 mg Q6H PRN Administration NAUSEA AND/OR VOMITING Metoprolol Succinate 75 mg 10/19/16 10:00 10/19/16 09:33 Toprol Xl - PO 75 mg DAILY RINA Administration Nicotine 21 mg 10/18/16 13:45 10/19/16 09:33 Nicoderm Patch - TD 21 mg DAILY RINA Administration Spironolactone 50 mg 10/12/16 10:00 10/19/16 09:33 Aldactone - PO 50 mg DAILY RINA Administration Impression 1. LIANNA 2. CHF 3. sepsis 4. CAD 5. DM 6. chol 7. COPD 8. hypothyroidism Plan - replace potassium - caution with diuretics as bicarb is rising - renal function is stablizing - sodium is stabilizing - elevate legs when possible - will follow Dr Lowry
[2016-10-19] MEDS: CEFAZOLIN 2 GM/D5W 50 ML IVPB SCH (17:43)
[2016-10-20] MEDS: CEFAZOLIN 2 GM/D5W 50 ML IVPB SCH ×3 (02:00→17:33)
[2016-10-20] MEDS: FUROSEMIDE 40 MG/4 ML INJECTABLE VIAL IVPUSH SCH ×2 (06:25→14:03)
[2016-10-20] MEDS: HEPARIN NA (PORCINE) 5,000 UNITS/ML 1ML VIAL SQ SCH ×3 (06:25→22:54)
[2016-10-20] MEDS: LEVOTHYROXINE NA 75 MCG TABLET (FP) PO SCH (07:14)
[2016-10-20] MEDS: INSULIN SLIDING SCALE (NOVOLOG) 1 VIAL SQ SCH ×3 (07:14→15:58)
--- NOTE | 2016-10-20 07:31 | PN ---
Physical Exam: SUBJECTIVE: Patient seen and examined at bed side this morning. Feels much better. Today, she was smiling, was interactive and verbalized understanding when explained the importance of medication compliance upon discharge. Complained to chronic abdominal pain around the umbilicus. Denies chest pain, sob, cough, palpitation, nausea or vomiting. Appetite/Sleep normal. OBJECTIVE: Vital Signs Period Temp Pulse Resp BP Sys/Santoro Pulse Ox Last 24 Hr 97.5 F-99.0 F 80-84 20-20 101-127/59-74 96-96 GENERAL: AA female, lying comfortably in bed, Awake, alert, and fully oriented, in no acute distress. HEAD: Normal with no signs of trauma. EYES: EOM intact, no pallor or icterus. EARS, NOSE, THROAT: Ears normal. Moist mucous membranes. NECK: Normal range of motion, supple without lymphadenopathy,, or masses. No JVD LUNGS: B/L equal air entry, decreased breath sounds at the b/l bases. No crackles. No wheezes. No accessory muscle use. HEART: Regular rate and rhythm, normal S1 and S2 with pansystolic murmur. ABDOMEN: Soft, tenderness around the umbilical area, distended, edematous- improved, normoactive bowel sounds, no guarding, no rebound, no masses. No hepatomegaly or splenomegaly. MUSCULOSKELETAL: Normal range of motion at all joints. No bony deformities or tenderness. No CVA tenderness. UPPER EXTREMITIES: 2+ pulses, warm, well-perfused. No cyanosis. No clubbing. No peripheral edema. LOWER EXTREMITIES: 2+ pulses, warm, well-perfused. No calf tenderness. peripheral edema 2+ upto the knee and 1 + up to the thigh. Tenderness to light touch-improved. NEUROLOGICAL: Cranial nerves II-XII intact. Normal speech. Gait not observed PSYCHIATRIC: Cooperative. Good eye contact. Appropriate mood and affect. SKIN: Warm, dry, normal turgor, no rashes or lesions noted, normal capillary refill. Laboratory Results - last 24 hr 10/19/16 10/19/16 10/19/16 06:00 06:00 06:00 WBC 11.3 H RBC 4.40 Hgb 11.4 Hct 35.3 MCV 80.4 MCHC 32.3 RDW 23.0 H Plt Count 154 MPV 8.6 ESR 20 Sodium 135 L Potassium 3.1 L Chloride 92 L Carbon Dioxide 33 H Anion Gap 10 BUN 20 H Creatinine 0.8 Creat Clearance w eGFR > 60 POC Glucometer Random Glucose 99 D Calcium 8.5 Magnesium 1.8 Total Bilirubin 5.2 H Direct Bilirubin 4.1 H AST 31 ALT 20 Alkaline Phosphatase 174 H D Total Protein 5.7 L Albumin 2.2 L 10/19/16 10/19/16 10/19/16 06:00 11:38 15:45 WBC RBC Hgb Hct MCV MCHC RDW Plt Count MPV ESR Sodium Potassium Chloride Carbon Dioxide Anion Gap BUN Creatinine Creat Clearance w eGFR POC Glucometer 176 106 Random Glucose Calcium Magnesium Cancelled Total Bilirubin Direct Bilirubin Cancelled AST ALT Alkaline Phosphatase Total Protein Albumin Active Medications Generic Name Dose Route Start Last Admin Trade Name Freq PRN Reason Stop Dose Admin Acetaminophen 650 mg 10/15/16 10:52 10/17/16 00:59 Tylenol - PO 650 mg Q6H PRN Administration FEVER OR PAIN Clopidogrel Bisulfate 75 mg 10/12/16 10:00 10/19/16 09:33 Plavix - PO 75 mg DAILY RINA Administration Duloxetine HCl 20 mg 10/19/16 10:00 10/19/16 09:36 Cymbalta - PO 20 mg DAILY [facility] Administration Furosemide 80 mg 10/18/16 14:00 10/20/16 06:25 Lasix Injection - IVPUSH 80 mg BID@0600,1400 RINA Administration Heparin Sodium (Porcine) 5,000 unit 10/11/16 22:00 10/20/16 06:25 Heparin - SQ Not Given TID [facility] Cefazolin Sodium/Dextrose 50 mls @ 100 mls/hr 10/19/16 18:00 10/20/16 02:00 Ancef 2 Gm Premixed Ivpb - IVPB 100 mls/hr Q8H-IV [facility] Administration Insulin Aspart 1 vial 10/18/16 11:00 10/20/16 07:14 Novolog Vial Sliding Scale - SQ Not Given TIDAC [facility] Protocol Levothyroxine Sodium 75 mcg 10/12/16 07:00 10/20/16 07:14 Synthroid - PO 75 mcg DAILY@0700 [facility] Administration Lisinopril 5 mg 10/12/16 10:00 10/19/16 09:33 Prinivil PO 5 mg DAILY [facility] Administration Metoclopramide HCl 10 mg 10/14/16 23:07 05/30/17 01:15 Reglan Injection - IVPUSH 10 mg Q6H PRN Administration NAUSEA AND/OR VOMITING Metoprolol Succinate 75 mg 10/19/16 10:00 10/19/16 09:33 Toprol Xl - PO 75 mg DAILY [facility] Administration Nicotine 21 mg 10/18/16 13:45 10/19/16 09:33 Nicoderm Patch - TD 21 mg DAILY [facility] Administration Spironolactone 50 mg 10/12/16 10:00 10/19/16 09:33 Aldactone - PO 50 mg DAILY [facility] Administration 10/19/16 USG abdomen: IMPRESSION: Status post cholecystectomy. Mild hepatomegaly with a slightly coarse echotexture rule out fatty infiltration versus hepatocellular disease. Notes made of right pleural effusion. Right renal cyst measuring 2.2 x 1.8 cm Correlating to determine further evaluation in view of the clinical history ASSESSMENT/PLAN: Patient is a 61 year old female frequent flyer and non complaint patient with chronic abdominal pain (thought to be due to liver cirrhosis/biliary tree strictures s/p lap naomi for acalcalous cholecystitis 05/05), hyperbilirubinemia , HTN, HLD, DM, CAD s/p [place] 2003, CABG in 2003 s/p stents2, Systolic CHF s/p ICD /Pacemaker, COPD, current smoker, hypothyroid & peripheral neuropathy presented to the ED with the chief complaint of worsening shortness of breath. # Group B Strep bacteremia- Improving Unknown etiology. USG abdomen: no biliary source found. Less like urine infection since culture is negative; less likely Pneumonia since chest x-ray didn't show any infiltrate Leukocytosis 11.3 --->7.3 Blood cultures x 2 positive for Group B strep agalactaciae; blood cultures repeated-No growth NO Vegetations in ECHO, discussed with Cardio attending, only if BC grow org after 4 days, plan to do ANGY, or else no intervention required at this time. IV Cefazolin 1gm Q8H Day 3 ID consult appreciated GI consult requested, will talk to Dr. Evans regarding patients further management. # Acute on chronic systolic CHF Admitted in Telemetry Continuous Cardiac monitoring, non sustained V-tach only for 5secs noted in the monitor. Once she stablizes, would consider increasing Metoprolol. Strict Intake and output (negative 2800 over 24 hours yesterday) Daily Weight, 196 lbs ---->190 lbs --->190 lbs Today BNP on admission: 1874 Continue Spironolactone 50 mg PO Daily Increase Lasix IV to 80 mg BID Cardiology consult appreciated # LIANNA likely prerenal- Resolved creatine 1.6--->1.1 ---> 0.9 Cannot give IV fluids as patient has fluid overload-anasarca due to CHF Nephrology consult appreciated Avoid Nephrotoxic drugs # Non compliance Patient has visited [facility] 8 times this year, goes to [facility] and other hospitals frequently, was recently discharged from [facility] (last week) as per patients daughter. Patient is non compliant to medication at home and refuses medications here at the hospital. Needs constant counseling and family support or else patients medical condition will get worse due to non compliance. # Hypertension-Stable Metoprolol Succinate decreased to 75mg PO DAILY Lisinopril 5mg po daily # Hyperlipidemia Hold statins due to elevated liver enzymes (Was on Lipitor 20mg PO HS at home ) # DM HbA1c on 08/04- 6.6 Hypoglycemic especially in the morning. Since patient is not eating adequately PO added D10 @ 20mls/hr. Finger stick glucose monitoring Insulin sliding scale # CAD s/p [place] 2003, CABG in 2003 s/p stents2 Continue Plavix 75mg po daily # COPD: Not in exacerbation Duoneb PRN # Hypothyroidism TSH-0.25 08/23/16 Continue Synthoid 75 mcg po daily # Chronic Elevated liver enzymes with Hyperbilirubinemia - likely due to hepatic congestion secondary to CHF. Has done work up in the past. Called placed to Dr. San ([phone]) to get past records. All previous labs and Dr. San's recent note attached in the chart. Hold Statins. Avoid hepatotoxic drugs. Awaiting to talk to Dr. Evans. # FEN Stopped IV fluids. Electrolytes to be repeated tomorrow morning. Cardiac diet, Low Na diet # Prophylaxis For DVT: Heparin SQ TID For GI: Not indicated # Disposition: Admit to Telemetry. Duration of stay unknown. Illness, Investigation and Plan of care explained to the patient. She verbalized understanding. Case seen and discussed with Dr. Haas. Problem List - Problems (1) LIANNA (acute kidney injury) Code(s): N17.9 - ACUTE KIDNEY FAILURE, UNSPECIFIED (2) Abdominal pain Code(s): R10.9 - UNSPECIFIED ABDOMINAL PAIN (3) CHF (congestive heart failure) Code(s): I50.9 - HEART FAILURE, UNSPECIFIED (4) Elevated liver function tests Code(s): R94.5 - ABNORMAL RESULTS OF LIVER FUNCTION STUDIES (5) Noncompliance with medication regimen Code(s): Z91.14 - PATIENT'S OTHER NONCOMPLIANCE WITH MEDICATION REGIMEN Visit type - Emergency Visit Emergency Visit: Yes ED Registration Date: 10/11/16 Care time: The patient presented to the Emergency Department on the above date and was hospitalized for further evaluation of their emergent condition. - New Patient This patient is new to me today: No - Critical Care Critical Care patient: No - Discharge Referral Referred to [facility] Med P.C.: No
[2016-10-20 07:32] LABS: MCH 26.3 pg (25.7-33.7); MCHC 32.9 g/dl (32.0-36.0); MEAN CELL VOLUME 79.9 fl (80-96); MEAN PLT VOLUME 8.8 fl (7.5-11.1); PLATELET COUNT 157 K/MM3 (134-434); RDW 22.4 % (11.6-15.6); WHITE BLOOD COUNT 7.3 K/mm3 (4.0-10.0)
[2016-10-20 07:44] LABS: CALCIUM 8.1 mg/dL (8.5-10.1); COCKROFT - GAULT 111.911; CREATININE 0.7 mg/dL (0.55-1.02)
[2016-10-20] MEDS ORDERED: PT OWN MED DRAWER 7, Y5N ONE (08:29)
[2016-10-20 08:47] LABS: FREE T4 1.73 ng/dl (0.76-1.46)
[2016-10-20] MEDS: METOPROLOL SUCCINATE 25 MG TAB.SR.24H (FP) PO SCH (09:27)
[2016-10-20] MEDS: NICOTINE 21 MG/24 HOURS TOPICAL PATCH TD SCH (09:27)
[2016-10-20] MEDS: SPIRONOLACTONE 25 MG TABLET (FP) PO SCH (09:28)
[2016-10-20] MEDS: CLOPIDOGREL BISULFATE 75 MG TABLET (FP) PO SCH (09:28)
[2016-10-20] MEDS: DULoxetine HCL 20 MG CAPSULE.DR (FP) PO SCH (09:28)
[2016-10-20] MEDS: LISINOPRIL 5 MG TABLET (FP) PO SCH (09:28)
[2016-10-20 09:33] LABS: ANISOCYTOSIS 2+; HYPOCHROMIA 2+; MICROCYTOSIS FEW; POLYCHROMASIA FEW
[2016-10-20 09:34] LABS: FRAGMENTED CELL 1+
--- NOTE | 2016-10-20 14:20 | PN ---
Progress Note (short form) - Note Progress Note: ID Cefazolin for Group B strep bacteremia Overall doing much better Selected Entries 10/20/16 07:03 Temperature 98.0 F Pulse Rate 84 Respiratory 20 Rate Blood Pressure 104/59 Lung Clear Cor S1 S2 no murmur moran catheter Microbiology 10/15/16 08:19 Blood - Peripheral Venous Blood Culture - Final Strep Agalactiae Group B 10/15/16 08:18 Blood - Peripheral Venous Blood Culture - Final Strep Agalactiae Group B Laboratory Tests 10/20/16 05:35 WBC 7.3 D RBC 4.34 Plt Count 157 Assessment Group B strep source unknown We could consider a ANGY her to rule to vegetation Compromise might be to vince her with 14 days IV therapy 2 weeks Amoxicillin Ismael CH[facility]BERS Problem List - Problems (1) Acute on chronic systolic and diastolic heart failure, NYHA class 1 Code(s): I50.43 - ACUTE ON CHRONIC COMBINED SYSTOLIC AND DIASTOLIC HRT FAIL (2) Sepsis Code(s): A41.9 - SEPSIS, UNSPECIFIED ORGANISM (3) Abdominal pain Code(s): R10.9 - UNSPECIFIED ABDOMINAL PAIN
--- NOTE | 2016-10-20 15:11 | PN ---
Teaching Attending Note Name of Resident: Caty Jarrett ATTENDING PHYSICIAN STATEMENT I saw and evaluated the patient. I reviewed the resident's note and discussed the case with the resident. I agree with the resident's findings and plan as documented. SUBJECTIVE: no fever or chills, feels much better. has no cough . LE edema better OBJECTIVE: NAD, more communicative today No facial droop, MMM. Lungs: improved areationof lungs. fine crackles at bases CV: RRR, 3/6 SM at LLSB , and 3/6 SM at apex Abd: soft, decreased abd wall edema. TTP in periumbilical area. NL BS EXT: 2+ pitting edema on Legs. erythema and brownish discoloration ASSESSMENT AND PLAN: 61 year old female, with a significant past medical history of hypertension, hypercholesterolemia, CAD, RI(X2, s/pp defibrillator/pacemaker and CABG), CHF, DM II, kidney stones , peripheral neuropathy, hypothyroidism, CCY , chronic transaminitis , and non compliance presented with abd pain and SOB , was found to have Acute S CHF exacerbation and bacteremia 1- Acute on chronic systolic CHF: improved . I&O net Neg 2800 cc ysterday. weight has decreased - Cont lasix 80 mg IV BID - cont Lisinopril , and decreased dose of toprol to give room for diuresis - tele with non sustained Vtach ( 5 seconds) , will increase BB when feasible 2- G+ Bacteremia : unclear source. no UTI, PNA , or diarrhea . - d/w Dr. spence option of ANGY. Recs against it unless repeat blood cx is + - cont Abx per ID - GI source ? 3- LIANNA : likely prerenal azotemia in setting of CHF - cont IV diuresis - monitor 4- Chronic trop leak, at base line cont BB hold statin due to LFTS abn 5- hypoglycemia : due to poor po intake. resolved DVT px HLOC
[2016-10-20] MEDS ORDERED: POTASSIUM CHLORIDE TABS 20 MEQ TABLET.ER (FP) PO ONE (15:44)
--- NOTE | 2016-10-20 15:44 | PN ---
Progress Note, Physician History of Present Illness: Pt seen and examined at bedside. She is awake and alert. She denies shortness of breath. She complains of discomfort from the moran. - Current Medication List Current Medications: Active Medications Acetaminophen (Tylenol -) 650 mg PO Q6H PRN PRN Reason: FEVER OR PAIN Last Admin: 10/17/16 00:59 Dose: 650 mg Clopidogrel Bisulfate (Plavix -) 75 mg PO DAILY [facility] Last Admin: 10/20/16 09:28 Dose: 75 mg Duloxetine HCl (Cymbalta -) 20 mg PO DAILY [facility] Last Admin: 10/20/16 09:28 Dose: 20 mg Furosemide (Lasix Injection -) 80 mg IVPUSH BID@0600,1400 [facility] Last Admin: 10/20/16 14:03 Dose: 80 mg Heparin Sodium (Porcine) (Heparin -) 5,000 unit SQ TID [facility] Last Admin: 10/20/16 14:04 Dose: Not Given Cefazolin Sodium/Dextrose (Ancef 2 Gm Premixed Ivpb -) 50 mls @ 100 mls/hr IVPB Q8H-IV [facility] Last Admin: 10/20/16 09:27 Dose: 100 mls/hr Insulin Aspart (Novolog Vial Sliding Scale -) 1 vial SQ TIDAC [facility] PRN Reason: Protocol Last Admin: 10/20/16 12:01 Dose: Not Given Levothyroxine Sodium (Synthroid -) 75 mcg PO DAILY@0700 [facility] Last Admin: 10/20/16 07:14 Dose: 75 mcg Lisinopril (Prinivil) 5 mg PO DAILY [facility] Last Admin: 10/20/16 09:28 Dose: 5 mg Metoclopramide HCl (Reglan Injection -) 10 mg IVPUSH Q6H PRN PRN Reason: NAUSEA AND/OR VOMITING Last Admin: 10/17/16 01:15 Dose: 10 mg Metoprolol Succinate (Toprol Xl -) 75 mg PO DAILY [facility] Last Admin: 10/20/16 09:27 Dose: 75 mg Nicotine (Nicoderm Patch -) 21 mg TD DAILY [facility] Last Admin: 10/20/16 09:27 Dose: 21 mg Spironolactone (Aldactone -) 50 mg PO DAILY [facility] Last Admin: 10/20/16 09:28 Dose: 50 mg - Objective Vital Signs: Vital Signs Temperature 98.8 F 10/20/16 14:29 Pulse Rate 88 10/20/16 14:29 Respiratory Rate 19 10/20/16 14:29 Blood Pressure 121/77 10/20/16 14:29 O2 Sat by Pulse Oximetry (%) 96 10/20/16 07:03 Constitutional: Yes: Calm Eyes: Yes: Conjunctiva Clear HENT: Yes: Atraumatic Neck: Yes: Supple Cardiovascular: Yes: S1, S2 Respiratory: Yes: CTA Bilaterally Gastrointestinal: Yes: Soft, Abdomen, Obese Genitourinary: Yes: Moran Present Edema: Yes Edema: LLE: 2+, RLE: 2+ Neurological: Yes: Oriented Psychiatric: Yes: Oriented Labs: CBC, BMP 10/20/16 05:35 10/20/16 05:35 Problem List - Problems (1) Abdominal pain Code(s): R10.9 - UNSPECIFIED ABDOMINAL PAIN (2) CHF (congestive heart failure) Code(s): I50.9 - HEART FAILURE, UNSPECIFIED (3) Sepsis Code(s): A41.9 - SEPSIS, UNSPECIFIED ORGANISM (4) LIANNA (acute kidney injury) Code(s): N17.9 - ACUTE KIDNEY FAILURE, UNSPECIFIED Assessment/Plan Current Medications Generic Name Dose Route Start Last Admin Trade Name Freq PRN Reason Stop Dose Admin Acetaminophen 650 mg 10/15/16 10:52 10/17/16 00:59 Tylenol - PO 650 mg Q6H PRN Administration FEVER OR PAIN Clopidogrel Bisulfate 75 mg 10/12/16 10:00 10/20/16 09:28 Plavix - PO 75 mg DAILY [facility] Administration Duloxetine HCl 20 mg 10/19/16 10:00 10/20/16 09:28 Cymbalta - PO 20 mg DAILY [facility] Administration Furosemide 80 mg 10/18/16 14:00 10/20/16 14:03 Lasix Injection - IVPUSH 80 mg BID@0600,1400 [facility] Administration Heparin Sodium (Porcine) 5,000 unit 10/11/16 22:00 10/20/16 14:04 Heparin - SQ Not Given TID [facility] Cefazolin Sodium/Dextrose 50 mls @ 100 mls/hr 10/19/16 18:00 10/20/16 09:27 Ancef 2 Gm Premixed Ivpb - IVPB 100 mls/hr Q8H-IV [facility] Administration Insulin Aspart 1 vial 10/18/16 11:00 10/20/16 12:01 Novolog Vial Sliding Scale - SQ Not Given TIDAC [facility] Protocol Levothyroxine Sodium 75 mcg 10/12/16 07:00 10/20/16 07:14 Synthroid - PO 75 mcg DAILY@0700 [facility] Administration Lisinopril 5 mg 10/12/16 10:00 10/20/16 09:28 Prinivil PO 5 mg DAILY [facility] Administration Metoclopramide HCl 10 mg 10/14/16 23:07 10/17/16 01:15 Reglan Injection - IVPUSH 10 mg Q6H PRN Administration NAUSEA AND/OR VOMITING Metoprolol Succinate 75 mg 10/19/16 10:00 10/20/16 09:27 Toprol Xl - PO 75 mg DAILY [facility] Administration Nicotine 21 mg 10/18/16 13:45 10/20/16 09:27 Nicoderm Patch - TD 21 mg DAILY [facility] Administration Spironolactone 50 mg 10/12/16 10:00 10/20/16 09:28 Aldactone - PO 50 mg DAILY [facility] Administration Impression 1. LIANNA 2. CHF 3. sepsis 4. CAD 5. DM 6. chol 7. COPD 8. hypothyroidism Plan - renal function is stable - replace lytes - cont lasix, can decrease dose - can d/c moran - sodium is stabilizing - elevate legs when possible - will follow Dr Lowry
--- NOTE | 2016-10-20 18:40 | PN ---
GI Progress Note Subjective: GI NOte: Nida returns with what has become her typical scenario. Abdominal pain and jaundice when her congestive heart failure leads to volume overload and congestive hepatopathy. The pain is due to stretching of the liver capsule. She does not have autoimmune hepatitis. - Objective Vital Signs: Vital Signs Temperature 98.8 F 10/20/16 14:29 Pulse Rate 88 10/20/16 14:29 Respiratory Rate 19 10/20/16 14:29 Blood Pressure 121/77 10/20/16 14:29 O2 Sat by Pulse Oximetry (%) 96 10/20/16 07:03 Constitutional: Calm Eyes: Yes: Sclera Icterus Gastrointestinal Inspection: Yes: Distention ...Auscultate: Yes: Normoactive Bowel Sounds ...Palpate: Yes: Soft, Other (nontender) Labs: CBC, BMP 10/20/16 05:35 10/20/16 05:35 Assessment/Plan Abdominal pain and jaundice due to congestive hepatopathy which responds to diuresis which is being managed by Dr. Lowry. Dr. Louie tyron be covering this weekend. Please call him as needed.
[2016-10-21] MEDS: CEFAZOLIN 2 GM/D5W 50 ML IVPB SCH ×3 (02:22→17:15)
[2016-10-21] MEDS: FUROSEMIDE 40 MG/4 ML INJECTABLE VIAL IVPUSH SCH ×3 (06:46→15:31)
[2016-10-21] MEDS: HEPARIN NA (PORCINE) 5,000 UNITS/ML 1ML VIAL SQ SCH ×3 (06:47→21:35)
[2016-10-21] MEDS: INSULIN SLIDING SCALE (NOVOLOG) 1 VIAL SQ SCH ×3 (06:47→16:30)
[2016-10-21] MEDS: LEVOTHYROXINE NA 75 MCG TABLET (FP) PO SCH (06:47)
[2016-10-21 07:12] LABS: MCH 26.5 pg (25.7-33.7); MCHC 33.2 g/dl (32.0-36.0); MEAN CELL VOLUME 79.9 fl (80-96); MEAN PLT VOLUME 8.8 fl (7.5-11.1); PLATELET COUNT 167 K/MM3 (134-434); RDW 22.7 % (11.6-15.6)
[2016-10-21] MEDS ORDERED: METOPROLOL SUCCINATE 25 MG TAB.SR.24H (FP) PO SCH (07:30)
[2016-10-21 07:44] LABS: CALCIUM 7.9 mg/dL (8.5-10.1)
[2016-10-21 07:48] LABS: COCKROFT - GAULT 112.285; CREATININE 0.6 mg/dL (0.55-1.02)
--- NOTE | 2016-10-21 09:02 | PN ---
Progress Note (short form) - Note Progress Note: Subjective: no fever or chills, SOB and abd pain improved . Objective: Vital Signs: Last Vital Signs Temp Pulse Resp BP Pulse Ox 98 F 101 H 20 114/73 98 10/21/16 05:43 10/21/16 05:43 10/21/16 05:43 10/21/16 05:43 10/20/16 21:00 Intake & Output 10/18/16 10/19/16 10/20/16 10/21/16 23:59 23:59 23:59 23:59 Intake Total 2380 1020 1840 Output Total 2850 3800 8000 Balance -140 -8133 -7602 Weight 196 lb 6 oz 190 lb 190 lb 163 lb 6.4 oz Laboratory Results - last 24 hr 10/20/16 10/20/16 10/20/16 05:35 05:35 05:35 WBC RBC Hgb Hct MCV MCHC RDW Plt Count MPV Polychromasia Few Hypochromic-Microcytic 2+ Anisocytosis 2+ Microcytosis Few Fragmented RBCs 1+ Sodium Potassium Chloride Carbon Dioxide Anion Gap BUN Creatinine POC Glucometer Random Glucose Calcium Free T4 1.73 H Free T3 1.8 L 10/20/16 10/20/16 10/21/16 11:56 15:52 05:35 WBC 6.0 RBC 4.26 Hgb 11.3 Hct 34.0 MCV 79.9 L MCHC 33.2 RDW 22.7 H Plt Count 167 MPV 8.8 Polychromasia Hypochromic-Microcytic Anisocytosis Microcytosis Fragmented RBCs Sodium Potassium Chloride Carbon Dioxide Anion Gap BUN Creatinine POC Glucometer 116 121 Random Glucose Calcium Free T4 Free T3 10/21/16 10/21/16 05:35 06:41 WBC RBC Hgb Hct MCV MCHC RDW Plt Count MPV Polychromasia Hypochromic-Microcytic Anisocytosis Microcytosis Fragmented RBCs Sodium 136 Potassium 3.1 L Chloride 95 L Carbon Dioxide 33 H Anion Gap 8 BUN 13 Creatinine 0.6 POC Glucometer 86 Random Glucose 90 Calcium 7.9 L Free T4 Free T3 Physical Exam: NAD, more communicative today Lungs: improved areation of lungs, clear lungs CV: RRR, 3/6 SM at LLSB , and 3/6 SM at apex Abd: soft, decreased abd wall edema. TTP in periumbilical area. NL BS EXT:1+ pitting edema on Legs. erythema and brownish discoloration ASSESSMENT AND PLAN: 61 year old female, with a significant past medical history of hypertension, hypercholesterolemia, CAD, [place](X2, s/pp defibrillator/pacemaker and CABG), CHF, DM II, kidney stones , peripheral neuropathy, hypothyroidism, CCY , chronic transaminitis , and non compliance presented with abd pain and SOB , was found to have Acute S CHF exacerbation and bacteremia 1- Acute on chronic systolic CHF: much improved. - decrease lasix to 60 BID. if she contto imporve , might be able to switch to po lasix tomorrow 80 BID - cont Lisinopril - increase dose of toprol to 100 - tele with no events - replete K 2- G+ Bacteremia: unclear source. - d/w Dr. spence option of ANGY. Recs against it unless repeat blood cx is + - cont Abx per ID 3- LIANNA : likely prerenal azotemia in setting of CHF - cont IV diuresis - monitor 4- Chronic trop leak, at base line cont BB hold statin due to LFTS abn 5- hypoglycemia : resolved DVT px HLOC Visit type - Emergency Visit Emergency Visit: Yes ED Registration Date: 10/11/16 Care time: The patient presented to the Emergency Department on the above date and was hospitalized for further evaluation of their emergent condition. - New Patient This patient is new to me today: No - Critical Care Critical Care patient: No
[2016-10-21] MEDS ORDERED: POTASSIUM CHLORIDE TABS 20 MEQ TABLET.ER (FP) PO ONE (09:30)
[2016-10-21] MEDS ORDERED: PT OWN MED DRAWER 7, Y5N ONE (10:48)
[2016-10-21] MEDS: METOPROLOL SUCCINATE 100 MG TAB.SR.24H (FP) PO SCH (10:52)
[2016-10-21] MEDS: DULoxetine HCL 20 MG CAPSULE.DR (FP) PO SCH (10:52)
[2016-10-21] MEDS: SPIRONOLACTONE 25 MG TABLET (FP) PO SCH (10:52)
[2016-10-21] MEDS: CLOPIDOGREL BISULFATE 75 MG TABLET (FP) PO SCH (10:52)
[2016-10-21] MEDS: NICOTINE 21 MG/24 HOURS TOPICAL PATCH TD SCH (10:54)
[2016-10-21] MEDS: LISINOPRIL 5 MG TABLET (FP) PO SCH (10:56)
--- NOTE | 2016-10-21 13:23 | PN ---
Progress Note, Physician History of Present Illness: Renal f/u Pt feels better today since she has less discomfort following the removal of the moran SHe has been able to void with the moran out She continues to have some dyspnea but no chest pain - Current Medication List Current Medications: Active Medications Acetaminophen (Tylenol -) 650 mg PO Q6H PRN PRN Reason: FEVER OR PAIN Last Admin: 10/17/16 00:59 Dose: 650 mg Clopidogrel Bisulfate (Plavix -) 75 mg PO DAILY [facility] Last Admin: 10/21/16 10:52 Dose: 75 mg Duloxetine HCl (Cymbalta -) 20 mg PO DAILY [facility] Last Admin: 10/21/16 10:52 Dose: 20 mg Furosemide (Lasix Injection -) 60 mg IVPUSH BID@0600,1400 [facility] Last Admin: 10/21/16 10:02 Dose: Not Given Heparin Sodium (Porcine) (Heparin -) 5,000 unit SQ TID [facility] Last Admin: 10/21/16 06:47 Dose: 5,000 unit Cefazolin Sodium/Dextrose (Ancef 2 Gm Premixed Ivpb -) 50 mls @ 100 mls/hr IVPB Q8H-IV [facility] Last Admin: 10/21/16 10:53 Dose: 100 mls/hr Insulin Aspart (Novolog Vial Sliding Scale -) 1 vial SQ TIDAC [facility] PRN Reason: Protocol Last Admin: 10/21/16 11:45 Dose: Not Given Levothyroxine Sodium (Synthroid -) 75 mcg PO DAILY@0700 [facility] Last Admin: 10/21/16 06:47 Dose: 75 mcg Lisinopril (Prinivil) 5 mg PO DAILY [facility] Last Admin: 10/21/16 10:56 Dose: Not Given Metoclopramide HCl (Reglan Injection -) 10 mg IVPUSH Q6H PRN PRN Reason: NAUSEA AND/OR VOMITING Last Admin: 10/17/16 01:15 Dose: 10 mg Metoprolol Succinate (Toprol Xl -) 100 mg PO DAILY [facility] Last Admin: 10/21/16 10:52 Dose: 100 mg Nicotine (Nicoderm Patch -) 21 mg TD DAILY [facility] Last Admin: 10/21/16 10:54 Dose: 21 mg Spironolactone (Aldactone -) 50 mg PO DAILY [facility] Last Admin: 10/21/16 10:52 Dose: Not Given - Objective Vital Signs: Vital Signs Temperature 98.2 F 10/21/16 10:00 Pulse Rate 92 H 10/21/16 10:00 Respiratory Rate 19 10/21/16 10:00 Blood Pressure 114/60 10/21/16 10:00 O2 Sat by Pulse Oximetry (%) 96 10/21/16 10:00 Constitutional: Yes: No Distress Cardiovascular: Yes: S1, S2 Respiratory: Yes: CTA Bilaterally Gastrointestinal: Yes: Soft. No: Tenderness, Rebound Edema: Yes Labs: CBC, BMP 10/21/16 05:35 10/21/16 05:35 Assessment/Plan Impression 1. LIANNA improved 2. CHF 3. sepsis 4. CAD 5. DM 6. chol 7. COPD 8. hypothyroidism Plan - Replace K - Continue with BID lasix -Rpt labs in am Dr Alarcon
[2016-10-21] MEDS: POTASSIUM CHLORIDE 10 MEQ PREMIX IVPB (POTASSIUM RIDER) IVPB SCH ×2 (15:35→17:16)
--- NOTE | 2016-10-21 18:25 | PN ---
Progress Note, Physician Chief Complaint: Pt denies chest pain or dyspnea. Feels better now that Lam is out; urinating "well". History of Present Illness: The patient is a 61 year old black female, with a significant past medical history of hypertension, hyperlipidemia, Dm, CAD s/p defibrillator/pacemaker s/ p CABG, [place], severe systolic CHF, hypothyroidism, kidney stones, peripheral neuropathy, anxiety/depression, who presents to the emergency department from the office of Dr. San at the liver transplant center at [facility], a week after being discharged (ED visit on 10/04/16) for worsening shortness of breath and lower extremity edema today. The patient reports exertional SOB. She states she can walk for a few minutes, but states she has to sit and rest secondary to her dyspnea. She states her lower extremities are more swollen today, but admits to taking her medications today. She also reports diffuse abdominal discomfort today. She states she recently changed her PMD, but denies having made an appointment to meet the new PMD, Dr. Rueda. As per discharge summary from Dr. San, the patient was being seen for hepatomegaly to evaluate for autoimmune hepatitis. The patient is not currently on medication for her liver. She denies chest pain, headache and dizziness. She denies fever, chills, nausea , vomit, diarrhea and constipation. She denies dysuria, frequency, urgency and hematuria. Allergies: aspirin Past surgical history: PEG tube placement, Stents x2, CABG (2003), ICD/ Pacemaker (November), cholecystectomy (April 2016) Social history: current everyday tobacco use (3 cigarettes daily). Denies alcohol or drug use PCP - Dr. Parrish Ferrer/ Dr. Rueda Outsole Handler - Dr. Dick Cage - Current Medication List Current Medications: Active Medications Acetaminophen (Tylenol -) 650 mg PO Q6H PRN PRN Reason: FEVER OR PAIN Last Admin: 10/17/16 00:59 Dose: 650 mg Clopidogrel Bisulfate (Plavix -) 75 mg PO DAILY [facility] Last Admin: 10/21/16 10:52 Dose: 75 mg Duloxetine HCl (Cymbalta -) 20 mg PO DAILY [facility] Last Admin: 10/21/16 10:52 Dose: 20 mg Furosemide (Lasix Injection -) 60 mg IVPUSH BID@0600,1400 [facility] Last Admin: 10/21/16 15:31 Dose: 60 mg Heparin Sodium (Porcine) (Heparin -) 5,000 unit SQ TID [facility] Last Admin: 10/21/16 15:32 Dose: Not Given Cefazolin Sodium/Dextrose (Ancef 2 Gm Premixed Ivpb -) 50 mls @ 100 mls/hr IVPB Q8H-IV [facility] Last Admin: 10/21/16 17:15 Dose: 100 mls/hr Insulin Aspart (Novolog Vial Sliding Scale -) 1 vial SQ TIDAC [facility] PRN Reason: Protocol Last Admin: 10/21/16 16:30 Dose: Not Given Levothyroxine Sodium (Synthroid -) 75 mcg PO DAILY@0700 [facility] Last Admin: 10/21/16 06:47 Dose: 75 mcg Lisinopril (Prinivil) 5 mg PO DAILY [facility] Last Admin: 10/21/16 10:56 Dose: Not Given Metoclopramide HCl (Reglan Injection -) 10 mg IVPUSH Q6H PRN PRN Reason: NAUSEA AND/OR VOMITING Last Admin: 10/17/16 01:15 Dose: 10 mg Metoprolol Succinate (Toprol Xl -) 100 mg PO DAILY [facility] Last Admin: 10/21/16 10:52 Dose: 100 mg Nicotine (Nicoderm Patch -) 21 mg TD DAILY [facility] Last Admin: 10/21/16 10:54 Dose: 21 mg Spironolactone (Aldactone -) 50 mg PO DAILY [facility] Last Admin: 10/21/16 10:52 Dose: Not Given - Objective Vital Signs: Vital Signs Temperature 98.3 F 10/21/16 13:59 Pulse Rate 98 H 10/21/16 13:59 Respiratory Rate 18 10/21/16 13:59 Blood Pressure 122/68 10/21/16 13:59 O2 Sat by Pulse Oximetry (%) 96 10/21/16 10:00 Constitutional: Yes: Calm Eyes: Yes: WNL HENT: Yes: WNL Cardiovascular: Yes: S1, S2 (split) Respiratory: Yes: Regular Gastrointestinal: Yes: Soft ...Rectal Exam: Yes: Deferred Genitourinary: No: Anuria Edema: Yes Edema: LLE: 1+, RLE: 1+ Peripheral Pulses WNL: No Peripheral Pulses: Left Doralis Pedis: 1+, Right Dorsalis Pedis: 1+ Neurological: Yes: Alert, Oriented Psychiatric: Yes: Alert, Oriented, Other (anxiety/depression) Labs: CBC, BMP 10/21/16 05:35 10/21/16 05:35 Problem List - Problems (1) Dyspepsia Code(s): K30 - FUNCTIONAL DYSPEPSIA (2) Hyperbilirubinemia Code(s): E80.6 - OTHER DISORDERS OF BILIRUBIN METABOLISM (3) Hyperlipidemia Code(s): E78.5 - HYPERLIPIDEMIA, UNSPECIFIED (4) Hypertension Assessment/Plan: COntinue present medications (on mutliple medications for both systolic CHF and HTN). Code(s): I10 - ESSENTIAL (PRIMARY) HYPERTENSION (5) Peripheral neuropathy Code(s): G62.9 - POLYNEUROPATHY, UNSPECIFIED (6) Status post THR (total hip replacement) Code(s): Z96.649 - PRESENCE OF UNSPECIFIED ARTIFICIAL HIP JOINT (7) Postoperative abdominal pain Code(s): R10.9 - UNSPECIFIED ABDOMINAL PAIN G89.18 - OTHER ACUTE POSTPROCEDURAL PAIN (8) Hypokalemia Code(s): E87.6 - HYPOKALEMIA (9) Lower extremity edema Code(s): R60.0 - LOCALIZED EDEMA (10) Cigarette nicotine dependence Code(s): F17.210 - NICOTINE DEPENDENCE, CIGARETTES, UNCOMPLICATED (11) Coronary artery disease Code(s): I25.10 - ATHSCL HEART DISEASE OF [place] CORONARY ARTERY W/O ANG PCTRS (12) Depression Code(s): F32.9 - MAJOR DEPRESSIVE DISORDER, SINGLE EPISODE, UNSPECIFIED (13) Diabetes Code(s): E11.9 - TYPE 2 DIABETES MELLITUS WITHOUT COMPLICATIONS Qualifiers: Diabetes mellitus type: type 2 Diabetes mellitus complication status: with unspecified complications Diabetes mellitus longterm insulin use: with longterm use Qualified Code(s): E11.8 - Type 2 diabetes mellitus with unspecified complications; Z79.4 - MCFP (current) use of insulin (14) Hypothyroidism Code(s): E03.9 - HYPOTHYROIDISM, UNSPECIFIED (15) ICD (implantable cardioverter-defibrillator) in place Assessment/Plan: recently interrogated; occasional episodes of NSVT. Code(s): Z95.810 - PRESENCE OF AUTOMATIC (IMPLANTABLE) CARDIAC DEFIBRILLATOR (16) Acute on chronic systolic and diastolic heart failure, NYHA class 1 Assessment/Plan: Continue present medication; f/u BUN/Cr, Is and Os (has Lam), electrolytes, daily weight. Replete K+: f/u Mg2+. Code(s): I50.43 - ACUTE ON CHRONIC COMBINED SYSTOLIC AND DIASTOLIC HRT FAIL (17) NSVT (nonsustained ventricular tachycardia) Assessment/Plan: Continue metoprolol, lisinopril, spironolactone. Maintain electrolytes WNL (replet K, Mg, and PO4 today, and follow serially as pt is converted to PO furosemide). Code(s): I47.2 - VENTRICULAR TACHYCARDIA (18) Sleep apnea Code(s): G47.30 - SLEEP APNEA, UNSPECIFIED (19) Bacteremia Assessment/Plan: Pt is on IV antibiotics; f/u blood cultures. Code(s): R78.81 - BACTEREMIA
--- NOTE | 2016-10-21 18:29 | PN ---
Progress Note, Physician Chief Complaint: Pt denies chest pain or dyspnea. History of Present Illness: The patient is a 61 year old black female, with a significant past medical history of hypertension, hyperlipidemia, Dm, CAD s/p defibrillator/pacemaker s/ p CABG, [place], severe systolic CHF, hypothyroidism, kidney stones, peripheral neuropathy, anxiety/depression, who presents to the emergency department from the office of Dr. San at the liver transplant center at [facility], a week after being discharged (ED visit on 10/04/16) for worsening shortness of breath and lower extremity edema today. The patient reports exertional SOB. She states she can walk for a few minutes, but states she has to sit and rest secondary to her dyspnea. She states her lower extremities are more swollen today, but admits to taking her medications today. She also reports diffuse abdominal discomfort today. She states she recently changed her PMD, but denies having made an appointment to meet the new PMD, Dr. Rueda. As per discharge summary from Dr. San, the patient was being seen for hepatomegaly to evaluate for autoimmune hepatitis. The patient is not currently on medication for her liver. She denies chest pain, headache and dizziness. She denies fever, chills, nausea , vomit, diarrhea and constipation. She denies dysuria, frequency, urgency and hematuria. Allergies: aspirin Past surgical history: PEG tube placement, Stents x2, CABG (2003), ICD/ Pacemaker (November), cholecystectomy (April 2016) Social history: current everyday tobacco use (3 cigarettes daily). Denies alcohol or drug use PCP - Dr. Parrish Ferrer/ Dr. Rueda Hydraulic Modeling Engineer - Dr. Dick Cage - Current Medication List Current Medications: Active Medications Acetaminophen (Tylenol -) 650 mg PO Q6H PRN PRN Reason: FEVER OR PAIN Last Admin: 10/17/16 00:59 Dose: 650 mg Clopidogrel Bisulfate (Plavix -) 75 mg PO DAILY [facility] Last Admin: 10/21/16 10:52 Dose: 75 mg Duloxetine HCl (Cymbalta -) 20 mg PO DAILY [facility] Last Admin: 10/21/16 10:52 Dose: 20 mg Furosemide (Lasix Injection -) 60 mg IVPUSH BID@0600,1400 [facility] Last Admin: 10/21/16 15:31 Dose: 60 mg Heparin Sodium (Porcine) (Heparin -) 5,000 unit SQ TID [facility] Last Admin: 10/21/16 15:32 Dose: Not Given Cefazolin Sodium/Dextrose (Ancef 2 Gm Premixed Ivpb -) 50 mls @ 100 mls/hr IVPB Q8H-IV [facility] Last Admin: 10/21/16 17:15 Dose: 100 mls/hr Insulin Aspart (Novolog Vial Sliding Scale -) 1 vial SQ TIDAC [facility] PRN Reason: Protocol Last Admin: 10/21/16 16:30 Dose: Not Given Levothyroxine Sodium (Synthroid -) 75 mcg PO DAILY@0700 [facility] Last Admin: 10/21/16 06:47 Dose: 75 mcg Lisinopril (Prinivil) 5 mg PO DAILY [facility] Last Admin: 10/21/16 10:56 Dose: Not Given Metoclopramide HCl (Reglan Injection -) 10 mg IVPUSH Q6H PRN PRN Reason: NAUSEA AND/OR VOMITING Last Admin: 10/17/16 01:15 Dose: 10 mg Metoprolol Succinate (Toprol Xl -) 100 mg PO DAILY [facility] [place] Last Admin: 10/21/16 10:52 Dose: 100 mg Nicotine (Nicoderm Patch -) 21 mg TD DAILY [facility] [place] Last Admin: 10/21/16 10:54 Dose: 21 mg Spironolactone (Aldactone -) 50 mg PO DAILY [facility] Last Admin: 10/21/16 10:52 Dose: Not Given - Objective Vital Signs: Vital Signs Temperature 98.3 F 10/21/16 13:59 Pulse Rate 98 H 10/21/16 13:59 Respiratory Rate 18 10/21/16 13:59 Blood Pressure 122/68 10/21/16 13:59 O2 Sat by Pulse Oximetry (%) 96 10/21/16 10:00 Constitutional: Yes: Calm Eyes: Yes: WNL HENT: Yes: WNL Neck: Yes: WNL Cardiovascular: Yes: Regular Rate and Rhythm Respiratory: Yes: Regular Gastrointestinal: Yes: Soft. No: Tenderness ...Rectal Exam: Yes: Deferred Genitourinary: No: Anuria Musculoskeletal: Yes: Muscle Weakness Extremities: Yes: Cool Edema: Yes Edema: LLE: 1+, RLE: 1+ Peripheral Pulses WNL: No Peripheral Pulses: Left Doralis Pedis: 1+, Right Dorsalis Pedis: 1+ Integumentary: Yes: WNL Neurological: Yes: Alert, Oriented, Weakness Labs: CBC, BMP 10/21/16 05:35 10/21/16 05:35 - ....Imaging Ultrasound: Report Reviewed (Abd: fatty liver vs hepatocellular disease; right pleural effusion; renal cyst) Problem List - Problems (1) Dyspepsia Code(s): K30 - FUNCTIONAL DYSPEPSIA (2) Hyperbilirubinemia Code(s): E80.6 - OTHER DISORDERS OF BILIRUBIN METABOLISM (3) Hyperlipidemia Code(s): E78.5 - HYPERLIPIDEMIA, UNSPECIFIED (4) Hypertension Assessment/Plan: COntinue present medications (on mutliple medications for both systolic CHF and HTN). Code(s): I10 - ESSENTIAL (PRIMARY) HYPERTENSION (5) Peripheral neuropathy Code(s): G62.9 - POLYNEUROPATHY, UNSPECIFIED (6) Status post THR (total hip replacement) Code(s): Z96.649 - PRESENCE OF UNSPECIFIED ARTIFICIAL HIP JOINT (7) Postoperative abdominal pain Code(s): R10.9 - UNSPECIFIED ABDOMINAL PAIN G89.18 - OTHER ACUTE POSTPROCEDURAL PAIN (8) Hypokalemia Assessment/Plan: replete K+ (now 3.3). Keep K 4-4.5 Keep Mg 2-2.3 Keep PO4 2.5-3.0 Code(s): E87.6 - HYPOKALEMIA (9) Lower extremity edema Code(s): R60.0 - LOCALIZED EDEMA (10) Cigarette nicotine dependence Assessment/Plan: Pt continues to say she smokes only a few cigarettes a day, though her daughter says she smokes much more. Code(s): F17.210 - NICOTINE DEPENDENCE, CIGARETTES, UNCOMPLICATED (11) Coronary artery disease Assessment/Plan: Diet, exercise, medications, and smoking cessation to aid in preventing further need for PCI and to avoid cardiac events. Code(s): I25.10 - ATHSCL HEART DISEASE OF [place] CORONARY ARTERY W/O ANG PCTRS (12) Depression Code(s): F32.9 - MAJOR DEPRESSIVE DISORDER, SINGLE EPISODE, UNSPECIFIED (13) Diabetes Code(s): E11.9 - TYPE 2 DIABETES MELLITUS WITHOUT COMPLICATIONS Qualifiers: Diabetes mellitus type: type 2 Diabetes mellitus complication status: with unspecified complications Diabetes mellitus watermelon inspector insulin use: with watermelon inspector use Qualified Code(s): E11.8 - Type 2 diabetes mellitus with unspecified complications; Z79.4 - custodial (current) use of insulin (14) Hypothyroidism Assessment/Plan: Mildly reduced TSH and free T4; mildly elevated free T3. Code(s): E03.9 - HYPOTHYROIDISM, UNSPECIFIED (15) ICD (implantable cardioverter-defibrillator) in place Code(s): Z95.810 - PRESENCE OF AUTOMATIC (IMPLANTABLE) CARDIAC DEFIBRILLATOR (16) Acute on chronic systolic and diastolic heart failure, NYHA class 1 Code(s): I50.43 - ACUTE ON CHRONIC COMBINED SYSTOLIC AND DIASTOLIC HRT FAIL (17) NSVT (nonsustained ventricular tachycardia) Code(s): I47.2 - VENTRICULAR TACHYCARDIA (18) Sleep apnea Code(s): G47.30 - SLEEP APNEA, UNSPECIFIED (19) Bacteremia Code(s): R78.81 - BACTEREMIA
[2016-10-21] MEDS ORDERED: POTASSIUM CHLORIDE TABS 20 MEQ TABLET.ER (FP) PO SCH (22:00)
[2016-10-22] MEDS: CEFAZOLIN 2 GM/D5W 50 ML IVPB SCH ×3 (01:36→17:12)
[2016-10-22] MEDS: LEVOTHYROXINE NA 75 MCG TABLET (FP) PO SCH (06:56)
[2016-10-22] MEDS: FUROSEMIDE 40 MG/4 ML INJECTABLE VIAL IVPUSH SCH (06:56)
[2016-10-22] MEDS: HEPARIN NA (PORCINE) 5,000 UNITS/ML 1ML VIAL SQ SCH ×3 (06:56→22:29)
[2016-10-22] MEDS: INSULIN SLIDING SCALE (NOVOLOG) 1 VIAL SQ SCH ×3 (06:56→16:51)
[2016-10-22 07:31] LABS: ALBUMIN 2.1 g/dl (3.4-5.0); BILIRUBIN,DIRECT 3.1 mg/dL (0.0-0.2); BILIRUBIN,TOTAL 3.8 mg/dL (0.2-1.0); CALCIUM 7.9 mg/dL (8.5-10.1); COCKROFT - GAULT 107.015; CREATININE 0.6 mg/dL (0.55-1.02); MAGNESIUM 1.4 mg/dL (1.8-2.4); PHOSPHOROUS 2.1 mg/dL (2.5-4.9); TOT PROT 5.8 g/dl (6.4-8.2)
[2016-10-22] MEDS ORDERED: MAGNESIUM SULF 50% (8.12 MEQ/2 ML-1 GM VIAL) IVPB ONE (07:40)
[2016-10-22 08:50] LABS: MCH 26.2 pg (25.7-33.7); MCHC 32.6 g/dl (32.0-36.0); MEAN CELL VOLUME 80.4 fl (80-96); MEAN PLT VOLUME 8.5 fl (7.5-11.1); PLATELET COUNT 176 K/MM3 (134-434); RDW 22.8 % (11.6-15.6); WHITE BLOOD COUNT 6.5 K/mm3 (4.0-10.0)
[2016-10-22] MEDS: SPIRONOLACTONE 25 MG TABLET (FP) PO SCH (09:31)
[2016-10-22] MEDS: CLOPIDOGREL BISULFATE 75 MG TABLET (FP) PO SCH (09:32)
[2016-10-22] MEDS: NICOTINE 21 MG/24 HOURS TOPICAL PATCH TD SCH ×2 (09:32→09:40)
[2016-10-22] MEDS: LISINOPRIL 5 MG TABLET (FP) PO SCH (09:32)
[2016-10-22] MEDS: DULoxetine HCL 20 MG CAPSULE.DR (FP) PO SCH (09:32)
[2016-10-22] MEDS: METOPROLOL SUCCINATE 100 MG TAB.SR.24H (FP) PO SCH (09:33)
[2016-10-22 10:17] LABS: PLATELET ESTIMATE ADEQUATE (NORMAL)
--- NOTE | 2016-10-22 11:44 | PN ---
Progress Note, Physician History of Present Illness: Renal f/u Pt having some intermittent periombelical pain She has had a recent BM and has not vomited - Current Medication List Current Medications: Active Medications Acetaminophen (Tylenol -) 650 mg PO Q6H PRN PRN Reason: FEVER OR PAIN Last Admin: 10/17/16 00:59 Dose: 650 mg Clopidogrel Bisulfate (Plavix -) 75 mg PO DAILY [facility] Last Admin: 10/22/16 09:32 Dose: 75 mg Duloxetine HCl (Cymbalta -) 20 mg PO DAILY [facility] Last Admin: 10/22/16 09:32 Dose: 20 mg Furosemide (Lasix Injection -) 60 mg IVPUSH BID@0600,1400 [facility] Last Admin: 10/22/16 06:56 Dose: 60 mg Heparin Sodium (Porcine) (Heparin -) 5,000 unit SQ TID [facility] Last Admin: 10/22/16 06:56 Dose: 5,000 unit Cefazolin Sodium/Dextrose (Ancef 2 Gm Premixed Ivpb -) 50 mls @ 100 mls/hr IVPB Q8H-IV [facility] Last Admin: 10/22/16 09:31 Dose: 100 mls/hr Insulin Aspart (Novolog Vial Sliding Scale -) 1 vial SQ TIDAC [facility] PRN Reason: Protocol Last Admin: 10/22/16 11:30 Dose: Not Given Levothyroxine Sodium (Synthroid -) 75 mcg PO DAILY@0700 [facility] Last Admin: 10/22/16 06:56 Dose: 75 mcg Lisinopril (Prinivil) 5 mg PO DAILY [facility] Last Admin: 10/22/16 09:32 Dose: 5 mg Metoclopramide HCl (Reglan Injection -) 10 mg IVPUSH Q6H PRN PRN Reason: NAUSEA AND/OR VOMITING Last Admin: 10/17/16 01:15 Dose: 10 mg Metoprolol Succinate (Toprol Xl -) 100 mg PO DAILY [facility] Last Admin: 10/22/16 09:33 Dose: 100 mg Nicotine (Nicoderm Patch -) 21 mg TD DAILY [facility] Last Admin: 10/22/16 09:40 Dose: Not Given Spironolactone (Aldactone -) 50 mg PO DAILY [facility] Last Admin: 10/22/16 09:31 Dose: 50 mg - Objective Vital Signs: Vital Signs Temperature 98.4 F 10/22/16 02:21 Pulse Rate 78 10/22/16 06:00 Respiratory Rate 20 10/22/16 06:00 Blood Pressure 115/67 10/22/16 06:00 O2 Sat by Pulse Oximetry (%) 98 10/21/16 20:43 Constitutional: Yes: No Distress Cardiovascular: Yes: S1, S2 Respiratory: Yes: CTA Bilaterally Gastrointestinal: Yes: Soft, Distention. No: Tenderness, Rebound Edema: Yes (2 -3+ B/L and up to knees) Labs: CBC, BMP 10/22/16 05:35 10/22/16 05:35 Assessment/Plan Impression 1. LIANNA improved 2. CHF 3. Sepsis with latest BC negative for growth 4. CAD 5. DM 6. chol 7. COPD 8. hypothyroidism 9. Hypomagnesemia 10. Hypophosphatemia 11. Rising HCO3 12. Congestive hepatopathy Plan - Replace K, Magnesium and PO4 - If HCO3 continues to rise would obtain an ABG and reduce the diuretics - Rpt labs in am Dr Alarcon
[2016-10-22] MEDS ORDERED: NAPH,MB-DB/K PH,MBDB POWDER PACKET PO ONE (11:47)
--- NOTE | 2016-10-22 12:18 | PN ---
Progress Note (short form) - Note Progress Note: Subjective: no fever or chills, SOB and abd pain improved . Objective: Vital Signs: Last Vital Signs Temp Pulse Resp BP Pulse Ox 99 F 80 20 116/75 94 L 10/22/16 10:00 10/22/16 10:00 10/22/16 10:00 10/22/16 10:00 10/22/16 09:00 Laboratory Results - last 24 hr 10/21/16 10/22/16 10/22/16 16:25 05:35 05:35 WBC 6.5 RBC 4.39 Hgb 11.5 Hct 35.3 MCV 80.4 MCHC 32.6 RDW 22.8 H Plt Count 176 MPV 8.5 Neutrophils % 58.0 D Lymphocytes % 26.0 D Monocytes % 14.0 H D Myelocytes 2 Differential Comment Manual diff done Platelet Estimate Adequate Sodium 138 Potassium 3.5 Chloride 97 L Carbon Dioxide 36 H Anion Gap 5 L BUN 12 Creatinine 0.6 POC Glucometer 103 Random Glucose 75 Calcium 7.9 L Phosphorus 2.1 L D Magnesium 1.4 L D Total Bilirubin 3.8 H D Direct Bilirubin 3.1 H D AST 20 D ALT 8 L D Alkaline Phosphatase 163 H Total Protein 5.8 L Albumin 2.1 L 10/22/16 10/22/16 06:00 11:29 WBC RBC Hgb Hct MCV MCHC RDW Plt Count MPV Neutrophils % Lymphocytes % Monocytes % Myelocytes Differential Comment Platelet Estimate Sodium Potassium Chloride Carbon Dioxide Anion Gap BUN Creatinine POC Glucometer 83 165 Random Glucose Calcium Phosphorus Magnesium Total Bilirubin Direct Bilirubin AST ALT Alkaline Phosphatase Total Protein Albumin Microbiology 10/18/16 09:03 Blood Culture - Preliminary Blood - Peripheral Venous NO GROWTH OBTAINED AFTER 96 HOURS, INCUBATION TO CONTINUE FOR 1 DAYS. 10/18/16 08:52 Blood Culture - Preliminary Blood - Peripheral Venous NO GROWTH OBTAINED AFTER 96 HOURS, INCUBATION TO CONTINUE FOR 1 DAYS. Physical Exam: NAD Lungs:clear lungs CV: RRR, 3/6 SM at LLSB , and 3/6 SM at apex EXT:1+ pitting edema on Legs. erythema and brownish discoloration ASSESSMENT AND PLAN: 61 year old female, with a significant past medical history of hypertension, hypercholesterolemia, CAD, NE(X2, s/pp defibrillator/pacemaker and CABG), CHF, DM II, kidney stones , peripheral neuropathy, hypothyroidism, CCY , chronic transaminitis , and non compliance presented with abd pain and SOB , was found to have Acute S CHF exacerbation and bacteremia 1- Acute on chronic systolic CHF: much improved. weight and edema are better - switch lasix to home dose 80 mg po BID - cont Lisinopril - cont toprol to 100 - tele with no events - replete electrolytes 2- G+ Bacteremia: unclear source. - no ANGY unless repeat cx is positive per card - cont Abx per ID 3- LIANNA : likely prerenal azotemia in setting of CHF - monitor 4- Chronic trop leak, at base line cont BB hold statin for now 5- LFTS abnormality: chronic , Bili and alk phos are slightly worse than base line probably due to liver congestion . records from liver specialist obtained and in chart 6- hypoglycemia : resolved DVT px HLOC Visit type - Emergency Visit Emergency Visit: Yes ED Registration Date: 10/11/16 Care time: The patient presented to the Emergency Department on the above date and was hospitalized for further evaluation of their emergent condition. - New Patient This patient is new to me today: No - Critical Care Critical Care patient: No
--- NOTE | 2016-10-22 12:29 | PN ---
Progress Note, Physician Chief Complaint: Pt denies chest pain or dyspnea; feeling stronger. History of Present Illness: The patient is a 61 year old black female, with a significant past medical history of hypertension, hyperlipidemia, Dm, CAD s/p defibrillator/pacemaker s/ p CABG, DC, severe systolic CHF, hypothyroidism, kidney stones, peripheral neuropathy, anxiety/depression, who presents to the emergency department from the office of Dr. San at the liver transplant center at [facility], a week after being discharged (ED visit on 10/04/16) for worsening shortness of breath and lower extremity edema today. The patient reports exertional SOB. She states she can walk for a few minutes, but states she has to sit and rest secondary to her dyspnea. She states her lower extremities are more swollen today, but admits to taking her medications today. She also reports diffuse abdominal discomfort today. She states she recently changed her PMD, but denies having made an appointment to meet the new PMD, Dr. Rueda. As per discharge summary from Dr. San, the patient was being seen for hepatomegaly to evaluate for autoimmune hepatitis. The patient is not currently on medication for her liver. She denies chest pain, headache and dizziness. She denies fever, chills, nausea , vomit, diarrhea and constipation. She denies dysuria, frequency, urgency and hematuria. Allergies: aspirin Past surgical history: PEG tube placement, Stents x2, CABG (2003), ICD/ Pacemaker (November), cholecystectomy (April 2016) Social history: current everyday tobacco use (3 cigarettes daily). Denies alcohol or drug use PCP - Dr. Parrish Ferrer/ Dr. Rueda Bindery Operator - Dr. Dick Cage - Current Medication List Current Medications: Active Medications Acetaminophen (Tylenol -) 650 mg PO Q6H PRN PRN Reason: FEVER OR PAIN Last Admin: 10/17/16 00:59 Dose: 650 mg Clopidogrel Bisulfate (Plavix -) 75 mg PO DAILY [facility] Last Admin: 10/22/16 09:32 Dose: 75 mg Duloxetine HCl (Cymbalta -) 20 mg PO DAILY [facility] Last Admin: 10/22/16 09:32 Dose: 20 mg Furosemide (Lasix -) 80 mg PO BID@0600,1400 [facility] Heparin Sodium (Porcine) (Heparin -) 5,000 unit SQ TID [facility] Last Admin: 10/22/16 06:56 Dose: 5,000 unit Cefazolin Sodium/Dextrose (Ancef 2 Gm Premixed Ivpb -) 50 mls @ 100 mls/hr IVPB Q8H-IV [facility] Last Admin: 10/22/16 09:31 Dose: 100 mls/hr Insulin Aspart (Novolog Vial Sliding Scale -) 1 vial SQ TIDAC RINA PRN Reason: Protocol Last Admin: 10/22/16 11:30 Dose: Not Given Levothyroxine Sodium (Synthroid -) 75 mcg PO DAILY@0700 [facility] Last Admin: 10/22/16 06:56 Dose: 75 mcg Lisinopril (Prinivil) 5 mg PO DAILY [facility] Last Admin: 10/22/16 09:32 Dose: 5 mg Metoclopramide HCl (Reglan Injection -) 10 mg IVPUSH Q6H PRN PRN Reason: NAUSEA AND/OR VOMITING Last Admin: 10/17/16 01:15 Dose: 10 mg Metoprolol Succinate (Toprol Xl -) 100 mg PO DAILY [facility] Last Admin: 10/22/16 09:33 Dose: 100 mg Nicotine (Nicoderm Patch -) 21 mg TD DAILY [facility] Last Admin: 10/22/16 09:40 Dose: Not Given Potassium Chloride (K-Dur -) 20 meq PO BID [facility] Stop: 10/24/16 21:59 Spironolactone (Aldactone -) 50 mg PO DAILY [facility] Last Admin: 10/22/16 09:31 Dose: 50 mg - Objective Vital Signs: Vital Signs Temperature 99 F 10/22/16 10:00 Pulse Rate 80 10/22/16 10:00 Respiratory Rate 20 10/22/16 10:00 Blood Pressure 116/75 10/22/16 10:00 O2 Sat by Pulse Oximetry (%) 94 L 10/22/16 09:00 Constitutional: Yes: No Distress Eyes: Yes: WNL HENT: Yes: WNL Neck: Yes: WNL Cardiovascular: Yes: Regular Rate and Rhythm, S1, S2 (split) Respiratory: Yes: Regular Gastrointestinal: Yes: Soft ...Rectal Exam: Yes: Deferred Genitourinary: No: Anuria Musculoskeletal: Yes: Joint Stiffness, Joint Swelling, Muscle Weakness Extremities: Yes: Cool Edema: Yes Edema: LLE: 1+, RLE: 1+ Peripheral Pulses WNL: No Peripheral Pulses: Left Doralis Pedis: 1+, Right Dorsalis Pedis: 1+ Integumentary: Yes: Venous Stasis Changes Neurological: Yes: Alert, Oriented, Weakness Psychiatric: Yes: Alert, Oriented, Other (anxiety/depression) Labs: CBC, BMP 10/22/16 05:35 10/22/16 05:35 Current Medications Acetaminophen (Tylenol -) 650 mg PO Q6H PRN PRN Reason: FEVER OR PAIN Last Admin: 10/17/16 00:59 Dose: 650 mg Clopidogrel Bisulfate (Plavix -) 75 mg PO DAILY [facility] Last Admin: 10/22/16 09:32 Dose: 75 mg Duloxetine HCl (Cymbalta -) 20 mg PO DAILY [facility] Last Admin: 10/22/16 09:32 Dose: 20 mg Furosemide (Lasix -) 80 mg PO BID@0600,1400 [facility] Last Admin: 10/22/16 13:21 Dose: 80 mg Heparin Sodium (Porcine) (Heparin -) 5,000 unit SQ TID [facility] Last Admin: 10/22/16 22:29 Dose: 5,000 unit Cefazolin Sodium/Dextrose (Ancef 2 Gm Premixed Ivpb -) 50 mls @ 100 mls/hr IVPB Q8H-IV [facility] Last Admin: 10/22/16 17:12 Dose: 100 mls/hr Insulin Aspart (Novolog Vial Sliding Scale -) 1 vial SQ TIDAC [facility] PRN Reason: Protocol Last Admin: 10/22/16 16:51 Dose: Not Given Levothyroxine Sodium (Synthroid -) 75 mcg PO DAILY@0700 [facility] Last Admin: 10/22/16 06:56 Dose: 75 mcg Lisinopril (Prinivil) 5 mg PO DAILY [facility] Last Admin: 10/22/16 09:32 Dose: 5 mg Metoclopramide HCl (Reglan Injection -) 10 mg IVPUSH Q6H PRN PRN Reason: NAUSEA AND/OR VOMITING Last Admin: 10/17/16 01:15 Dose: 10 mg Metoprolol Succinate (Toprol Xl -) 100 mg PO DAILY [facility] Last Admin: 10/22/16 09:33 Dose: 100 mg Nicotine (Nicoderm Patch -) 21 mg TD DAILY [facility] Last Admin: 10/22/16 09:40 Dose: Not Given Potassium Chloride (K-Dur -) 20 meq PO BID [facility] Stop: 10/24/16 21:59 Last Admin: 10/22/16 22:29 Dose: 20 meq Spironolactone (Aldactone -) 50 mg PO DAILY [facility] Last Admin: 10/22/16 09:31 Dose: 50 mg Abnormal Lab Results 10/22/16 10/22/16 05:35 05:35 RDW 22.8 H Monocytes % 14.0 H D Chloride 97 L Carbon Dioxide 36 H Anion Gap 5 L Calcium 7.9 L Phosphorus 2.1 L D Magnesium 1.4 L D Total Bilirubin 3.8 H D Direct Bilirubin 3.1 H D ALT 8 L D Alkaline Phosphatase 163 H Total Protein 5.8 L Albumin 2.1 L Problem List - Problems (1) Dyspepsia Code(s): K30 - FUNCTIONAL DYSPEPSIA (2) Hyperbilirubinemia Code(s): E80.6 - OTHER DISORDERS OF BILIRUBIN METABOLISM (3) Hyperlipidemia Assessment/Plan: total cholesterol 86 mg/dL Code(s): E78.5 - HYPERLIPIDEMIA, UNSPECIFIED (4) Hypertension Assessment/Plan: Continue present medications (on mutliple medications for both severe systolic CHF and HTN). Code(s): I10 - ESSENTIAL (PRIMARY) HYPERTENSION (5) Peripheral neuropathy Code(s): G62.9 - POLYNEUROPATHY, UNSPECIFIED (6) Status post THR (total hip replacement) Code(s): Z96.649 - PRESENCE OF UNSPECIFIED ARTIFICIAL HIP JOINT (7) Postoperative abdominal pain Code(s): R10.9 - UNSPECIFIED ABDOMINAL PAIN G89.18 - OTHER ACUTE POSTPROCEDURAL PAIN (8) Hypokalemia Assessment/Plan: K+ : (now 3.5; keep 4-4.5) Mg 1.4: replete, and keep Mg 2-2.3. Keep PO4 2.5-3.0 Code(s): E87.6 - HYPOKALEMIA (9) Lower extremity edema Code(s): R60.0 - LOCALIZED EDEMA (10) Cigarette nicotine dependence Assessment/Plan: Pt continues to say she smokes only a few cigarettes a day, though her daughter says she smokes much more. Code(s): F17.210 - NICOTINE DEPENDENCE, CIGARETTES, UNCOMPLICATED (11) Coronary artery disease Assessment/Plan: Diet, exercise, medications, and smoking cessation to aid in preventing further need for PCI and to avoid cardiac events. Code(s): I25.10 - ATHSCL HEART DISEASE OF [place] CORONARY ARTERY W/O ANG PCTRS (12) Depression Assessment/Plan: Pt presently refuses counseling; on Cymbalta. Code(s): F32.9 - MAJOR DEPRESSIVE DISORDER, SINGLE EPISODE, UNSPECIFIED (13) Diabetes Code(s): E11.9 - TYPE 2 DIABETES MELLITUS WITHOUT COMPLICATIONS Qualifiers: Diabetes mellitus type: type 2 Diabetes mellitus complication status: with unspecified complications Diabetes mellitus bed bug exterminator insulin use: with usp use Qualified Code(s): E11.8 - Type 2 diabetes mellitus with unspecified complications; Z79.4 - shelter (current) use of insulin (14) Hypothyroidism Assessment/Plan: Mildly reduced TSH and free T4; mildly elevated free T3. Code(s): E03.9 - HYPOTHYROIDISM, UNSPECIFIED (15) ICD (implantable cardioverter-defibrillator) in place Assessment/Plan: recently interrogated; occasional episodes of NSVT. Code(s): Z95.810 - PRESENCE OF AUTOMATIC (IMPLANTABLE) CARDIAC DEFIBRILLATOR (16) Acute on chronic systolic and diastolic heart failure, NYHA class 1 Assessment/Plan: Discussed with Dr. Griffin; agree with changing IV to PO furosemide. f/u BUN/Cr, Is and Os (has Lam), electrolytes, daily weight (pt has lost a significant amount since admission, and now weighs 155 lbs). Replete K+: f/u Mg2+. Code(s): I50.43 - ACUTE ON CHRONIC COMBINED SYSTOLIC AND DIASTOLIC HRT FAIL (17) NSVT (nonsustained ventricular tachycardia) Assessment/Plan: Continue metoprolol, lisinopril, spironolactone. Maintain electrolytes WNL (replet K, Mg, and PO4 today, and follow serially as pt is converted to PO furosemide). Code(s): I47.2 - VENTRICULAR TACHYCARDIA (18) Sleep apnea Assessment/Plan: Pt sleeps fitfully at night, then seeps hours during the day. Recommend sleep studies to r/o sleep apnea.. Code(s): G47.30 - SLEEP APNEA, UNSPECIFIED (19) Bacteremia Assessment/Plan: Pt is on IV antibiotics; f/u blood cultures (negative as of 10/18/2016). Code(s): R78.81 - BACTEREMIA
[2016-10-22] MEDS: FUROSEMIDE 40 MG TABLET (FP) PO SCH (13:21)
[2016-10-22] MEDS: POTASSIUM CHLORIDE TABS 20 MEQ TABLET.ER (FP) PO SCH (22:29)
[2016-10-23] MEDS: CEFAZOLIN 2 GM/D5W 50 ML IVPB SCH ×3 (02:50→17:04)
[2016-10-23] MEDS: FUROSEMIDE 40 MG TABLET (FP) PO SCH ×2 (06:25→13:18)
[2016-10-23] MEDS: LEVOTHYROXINE NA 75 MCG TABLET (FP) PO SCH (06:25)
[2016-10-23] MEDS: HEPARIN NA (PORCINE) 5,000 UNITS/ML 1ML VIAL SQ SCH ×3 (06:28→22:02)
[2016-10-23] MEDS: INSULIN SLIDING SCALE (NOVOLOG) 1 VIAL SQ SCH ×3 (06:28→16:52)
[2016-10-23 07:43] LABS: MCH 25.8 pg (25.7-33.7); MCHC 31.8 g/dl (32.0-36.0); MEAN CELL VOLUME 81.2 fl (80-96); MEAN PLT VOLUME 8.1 fl (7.5-11.1); PLATELET COUNT 196 K/MM3 (134-434); RDW 23.3 % (11.6-15.6); WHITE BLOOD COUNT 7.1 K/mm3 (4.0-10.0)
[2016-10-23 07:52] LABS: CALCIUM 8.2 mg/dL (8.5-10.1); COCKROFT - GAULT 105.315; CREATININE 0.6 mg/dL (0.55-1.02); MAGNESIUM 1.7 mg/dL (1.8-2.4); PHOSPHOROUS 2.4 mg/dL (2.5-4.9)
--- NOTE | 2016-10-23 08:59 | PN ---
Physical Exam: SUBJECTIVE: Patient seen and examined at bed side. Complaints of shortness of breath at rest which has improved; minimal diffuse abdominal pain. Denies chest pain, palpitations, abdominal pain, nausea or vomiting. Bowel/Bladder habit normal. Sleep/Appetite normal. OBJECTIVE: Vital Signs Period Temp Pulse Resp BP Sys/Santoro Pulse Ox Last 24 Hr 97.6 F-99 F 74-80 20-20 91-116/50-75 94-100 GENERAL: AA female, lying comfortably in bed eating breakfast, Awake, alert, and fully oriented, in no acute distress. HEAD: Normal with no signs of trauma. EYES: EOM intact, no pallor or icterus. EARS, NOSE, THROAT: Ears normal. Moist mucous membranes. NECK: Normal range of motion, supple without lymphadenopathy,, or masses. No JVD LUNGS: B/L equal air entry, decreased breath sounds at the b/l bases. No crackles. No wheezes. No accessory muscle use. HEART: Regular rate and rhythm, normal S1 and S2 with pansystolic murmur. ABDOMEN: Ventral hernia, Soft, tenderness around the umbilical area, distended, edematous- improved, normoactive bowel sounds, no guarding, no rebound, no masses. No hepatomegaly or splenomegaly. MUSCULOSKELETAL: Normal range of motion at all joints. No bony deformities or tenderness. No CVA tenderness. UPPER EXTREMITIES: 2+ pulses, warm, well-perfused. No cyanosis. No clubbing. No peripheral edema. LOWER EXTREMITIES: 2+ pulses, warm, well-perfused. No calf tenderness. peripheral edema 2+ upto the mid calf, no tenderness. NEUROLOGICAL: Cranial nerves II-XII intact. Normal speech. Gait not observed PSYCHIATRIC: Cooperative. Good eye contact. Appropriate mood and affect. SKIN: Warm, dry, normal turgor, no rashes or lesions noted, normal capillary refill. Laboratory Results - last 24 hr 10/22/16 10/22/16 10/22/16 05:35 11:29 16:50 WBC RBC Hgb Hct MCV MCHC RDW Plt Count MPV Neutrophils % 58.0 D Lymphocytes % 26.0 D Monocytes % 14.0 H D Myelocytes 2 Differential Comment Manual diff done Platelet Estimate Adequate Sodium Potassium Chloride Carbon Dioxide Anion Gap BUN Creatinine POC Glucometer 165 134 Random Glucose Calcium Phosphorus Magnesium 10/22/16 10/23/16 10/23/16 22:36 05:35 05:35 WBC 7.1 RBC 4.51 Hgb 11.6 Hct 36.6 MCV 81.2 MCHC 31.8 L RDW 23.3 H Plt Count 196 MPV 8.1 Neutrophils % Y Lymphocytes % Y Monocytes % Myelocytes Differential Comment Platelet Estimate Sodium 140 Potassium 3.3 L Chloride 97 L Carbon Dioxide 35 H Anion Gap 8 BUN 13 Creatinine 0.6 POC Glucometer 103 Random Glucose 91 D Calcium 8.2 L Phosphorus 2.4 L Magnesium 1.7 L D 10/23/16 06:28 WBC RBC Hgb Hct MCV MCHC RDW Plt Count MPV Neutrophils % Lymphocytes % Monocytes % Myelocytes Differential Comment Platelet Estimate Sodium Potassium Chloride Carbon Dioxide Anion Gap BUN Creatinine POC Glucometer 94 Random Glucose Calcium Phosphorus Magnesium Active Medications Generic Name Dose Route Start Last Admin Trade Name Freq PRN Reason Stop Dose Admin Acetaminophen 650 mg 10/15/16 10:52 10/17/16 00:59 Tylenol - PO 650 mg Q6H PRN Administration FEVER OR PAIN Clopidogrel Bisulfate 75 mg 10/12/16 10:00 10/22/16 09:32 Plavix - PO 75 mg DAILY RINA Administration Duloxetine HCl 20 mg 10/19/16 10:00 10/22/16 09:32 Cymbalta - PO 20 mg DAILY RINA Administration Furosemide 80 mg 10/22/16 14:00 10/23/16 06:25 Lasix - PO 80 mg BID@0600,1400 RINA Administration Heparin Sodium (Porcine) 5,000 unit 10/11/16 22:00 10/23/16 06:28 Heparin - SQ Not Given TID [facility] Cefazolin Sodium/Dextrose 50 mls @ 100 mls/hr 10/19/16 18:00 10/23/16 02:50 Ancef 2 Gm Premixed Ivpb - IVPB Not Given Q8H-IV [facility] Insulin Aspart 1 vial 10/18/16 11:00 10/23/16 06:28 Novolog Vial Sliding Scale - SQ Not Given TIDAC [facility] Protocol Levothyroxine Sodium 75 mcg 10/12/16 07:00 10/23/16 06:25 Synthroid - PO 75 mcg DAILY@0700 [facility]INA Administration Lisinopril 5 mg 10/12/16 10:00 10/22/16 09:32 Prinivil PO 5 mg DAILY [facility] Administration Metoclopramide HCl 10 mg 10/14/16 23:07 10/17/16 01:15 Reglan Injection - IVPUSH 10 mg Q6H PRN Administration NAUSEA AND/OR VOMITING Metoprolol Succinate 100 mg 10/21/16 10:00 10/22/16 09:33 Toprol Xl - PO 100 mg DAILY [facility] Administration Nicotine 21 mg 10/18/16 13:45 10/22/16 09:40 Nicoderm Patch - TD Not Given DAILY [facility] Potassium Chloride 20 meq 10/22/16 22:00 10/22/16 22:29 K-Dur - PO 10/24/16 21:59 20 meq BID [facility]INA Administration Spironolactone 50 mg 10/12/16 10:00 10/22/16 09:31 Aldactone - PO 50 mg DAILY [facility] Administration ASSESSMENT/PLAN: Patient is a 61 year old female frequent flyer and non complaint patient with chronic abdominal pain (thought to be due to liver cirrhosis/biliary tree strictures s/p lap naomi for acalcalous cholecystitis 05/05), hyperbilirubinemia , HTN, HLD, DM, CAD s/p PR 2003, CABG in 2003 s/p stents2, Systolic CHF s/p ICD /Pacemaker, COPD, current smoker, hypothyroid & peripheral neuropathy presented to the ED with the chief complaint of worsening shortness of breath. # Group B Strep bacteremia- Improving Unknown etiology. Leukocytosis resolved Repeat blood cultures x 5 days. IV Cefazolin 1gm Q8H Day 6, needs total of 14 days of IV antibiotics followed by 14 days of PO Amoxicillin 500mg TID x 14 days. Refused PICC line placement and doesn't want to go to a rehab. Will speak with the psychotherapist social worker about the possibilities. # Acute on chronic systolic CHF- Resolving Admitted in Telemetry Continuous Cardiac monitoring Lam removed over the weekend. Daily Weight, On admission 185 lbs----> Today 153 lbs Changed IV Lasix to PO Lasix 80 mg BID Continue Spironolactone 50 mg PO Daily Patient's pacemaker was interrogated last month, next scheduled in November,. # Hypokalmia/Hypomagnesemia K-3.3/ Mg-1.7. Repleted Magnesium IV 2gm stat, ordered K-dur 40 mEq but patient refused. # LIANNA likely prerenal -Resolved # Non compliance Patient has visited [facility] 8 times this year, goes to [facility] and other hospitals frequently, was recently discharged from [place] (last week) as per patients daughter. Patient is non compliant to medication at home and refuses medications here at the hospital. Needs constant counseling and family support or else patients medical condition will get worse due to non compliance. # Hypertension-Stable Metoprolol Succinate increased to 100 mg PO DAILY Lisinopril 5mg PO daily # Hyperlipidemia Hold statins due to elevated liver enzymes (Was on Lipitor 20mg PO HS at home ) # DM HbA1c on 08/04- 6.6 Finger stick glucose monitoring Insulin sliding scale # CAD s/p PR 2003, CABG in 2003 s/p stents2 Continue Plavix 75mg po daily # COPD: Not in exacerbation Duoneb PRN # Hypothyroidism TSH-0.25 08/23/16 Continue Synthoid 75 mcg po daily # Chronic Elevated liver enzymes with Hyperbilirubinemia - likely due to hepatic congestion secondary to CHF. Has done work up in the past. Called placed to Dr. San ([phone]) to get past records. All previous labs and Dr. San's recent note attached in the chart. Hold Statins. Avoid hepatotoxic drugs. Spoke with Dr. Evans, has chronic hyperbilirubinemia, no further management required at this time. # FEN Not on IV fluids. Electrolytes to be repeated tomorrow morning. Cardiac diet, Low Na diet # Prophylaxis For DVT: Heparin SQ TID For GI: Not indicated # Disposition: Admit to Telemetry. Duration of stay unknown. Illness, Investigation and Plan of care explained to the patient. She verbalized understanding. Case seen and discussed with Dr. Haas. Problem List - Problems (1) LIANNA (acute kidney injury) Code(s): N17.9 - ACUTE KIDNEY FAILURE, UNSPECIFIED (2) Abdominal pain Code(s): R10.9 - UNSPECIFIED ABDOMINAL PAIN (3) CHF (congestive heart failure) Code(s): I50.9 - HEART FAILURE, UNSPECIFIED (4) Elevated liver function tests Code(s): R94.5 - ABNORMAL RESULTS OF LIVER FUNCTION STUDIES (5) Noncompliance with medication regimen Code(s): Z91.14 - PATIENT'S OTHER NONCOMPLIANCE WITH MEDICATION REGIMEN Visit type - Emergency Visit Emergency Visit: Yes ED Registration Date: 10/11/16 Care time: The patient presented to the Emergency Department on the above date and was hospitalized for further evaluation of their emergent condition. - New Patient This patient is new to me today: No - Critical Care Critical Care patient: No - Discharge Referral Referred to [facility] No
[2016-10-23] MEDS: SPIRONOLACTONE 25 MG TABLET (FP) PO SCH ×2 (09:11→10:07)
[2016-10-23] MEDS: DULoxetine HCL 20 MG CAPSULE.DR (FP) PO SCH ×2 (09:11→10:07)
[2016-10-23] MEDS: LISINOPRIL 5 MG TABLET (FP) PO SCH ×2 (09:12→10:07)
[2016-10-23] MEDS: NICOTINE 21 MG/24 HOURS TOPICAL PATCH TD SCH (09:12)
[2016-10-23] MEDS: POTASSIUM CHLORIDE TABS 20 MEQ TABLET.ER (FP) PO SCH ×3 (09:12→21:56)
[2016-10-23] MEDS: CLOPIDOGREL BISULFATE 75 MG TABLET (FP) PO SCH ×2 (09:12→10:07)
[2016-10-23] MEDS: METOPROLOL SUCCINATE 100 MG TAB.SR.24H (FP) PO SCH (09:12)
--- NOTE | 2016-10-23 09:41 | PN ---
Progress Note, Physician Chief Complaint: ID Ceftriaxone day 8 therapy bacteremia - Current Medication List Current Medications: Active Medications Acetaminophen (Tylenol -) 650 mg PO Q6H PRN PRN Reason: FEVER OR PAIN Last Admin: 10/17/16 00:59 Dose: 650 mg Clopidogrel Bisulfate (Plavix -) 75 mg PO DAILY [facility] Last Admin: 10/22/16 09:32 Dose: 75 mg Duloxetine HCl (Cymbalta -) 20 mg PO DAILY [facility] Last Admin: 10/22/16 09:32 Dose: 20 mg Furosemide (Lasix -) 80 mg PO BID@0600,1400 [facility] Last Admin: 10/23/16 06:25 Dose: 80 mg Heparin Sodium (Porcine) (Heparin -) 5,000 unit SQ TID [facility] Last Admin: 10/23/16 06:28 Dose: Not Given Cefazolin Sodium/Dextrose (Ancef 2 Gm Premixed Ivpb -) 50 mls @ 100 mls/hr IVPB Q8H-IV [facility] Last Admin: 10/23/16 09:14 Dose: 100 mls/hr Insulin Aspart (Novolog Vial Sliding Scale -) 1 vial SQ TIDAC [facility] PRN Reason: Protocol Last Admin: 10/23/16 06:28 Dose: Not Given Levothyroxine Sodium (Synthroid -) 75 mcg PO DAILY@0700 [facility] Last Admin: 10/23/16 06:25 Dose: 75 mcg Lisinopril (Prinivil) 5 mg PO DAILY [facility] Last Admin: 10/22/16 09:32 Dose: 5 mg Magnesium Sulfate (Magnesium Sulfate) 2 gm IVPB ONCE ONE Stop: 10/23/16 09:15 Metoclopramide HCl (Reglan Injection -) 10 mg IVPUSH Q6H PRN PRN Reason: NAUSEA AND/OR VOMITING Last Admin: 10/17/16 01:15 Dose: 10 mg Metoprolol Succinate (Toprol Xl -) 100 mg PO DAILY [facility] Last Admin: 10/23/16 09:12 Dose: 100 mg Nicotine (Nicoderm Patch -) 21 mg TD DAILY [facility] Last Admin: 10/23/16 09:12 Dose: Not Given Potassium Chloride (K-Dur -) 20 meq PO BID [facility] Stop: 10/24/16 21:59 Last Admin: 10/22/16 22:29 Dose: 20 meq Potassium Chloride (K-Dur -) 40 meq PO ONCE ONE Stop: 10/23/16 09:15 Spironolactone (Aldactone -) 50 mg PO DAILY [facility] Last Admin: 10/22/16 09:31 Dose: 50 mg - Objective Vital Signs: Vital Signs Temperature 98.4 F 10/23/16 05:51 Pulse Rate 74 10/23/16 05:51 Respiratory Rate 20 10/23/16 05:51 Blood Pressure 114/67 10/23/16 05:51 O2 Sat by Pulse Oximetry (%) 100 10/22/16 19:55 Constitutional: Yes: Well Nourished, No Distress Neck: Yes: WNL, Supple Cardiovascular: Yes: S1, S2 Respiratory: Yes: WNL, Regular, CTA Bilaterally Edema: No Labs: CBC, BMP 10/23/16 05:35 10/23/16 05:35 Problem List - Problems (1) Acute on chronic systolic and diastolic heart failure, NYHA class 1 Code(s): I50.43 - ACUTE ON CHRONIC COMBINED SYSTOLIC AND DIASTOLIC HRT FAIL (2) Sepsis Code(s): A41.9 - SEPSIS, UNSPECIFIED ORGANISM (3) Abdominal pain Code(s): R10.9 - UNSPECIFIED ABDOMINAL PAIN Assessment/Plan Microbiology 10/15/16 08:19 Blood - Peripheral Venous Blood Culture - Final Strep Agalactiae Group B 10/15/16 08:18 Blood - Peripheral Venous Blood Culture - Final Strep Agalactiae Group B Laboratory Tests 10/18/16 10/18/16 10/19/16 05:35 05:35 06:00 WBC Hgb Hct Plt Count ESR 20 BUN Creatinine C-Reactive Protein 14.0 H D Cancelled 10/23/16 10/23/16 05:35 05:35 WBC 7.1 Hgb 11.6 Hct 36.6 Plt Count 196 ESR BUN 13 Creatinine 0.6 C-Reactive Protein Assessment Group B strep bacteremia day 8 therapy of planned 14 days IV To be followed by Amoxicillin orally 500m tid for 14 days Plan Kindly recall as needed but follow above mentioned recommendations and recall for questions Thank you Stephanie CHAMBERS
[2016-10-23] MEDS ORDERED: MAGNESIUM SULF 50% (8.12 MEQ/2 ML-1 GM VIAL) IVPB ONE (10:15)
[2016-10-23] MEDS: POTASSIUM CHLORIDE TABS 20 MEQ TABLET.ER (FP) PO ONE ×2 (10:22→13:19)
[2016-10-23 11:49] LABS: ANISOCYTOSIS 2+; HYPOCHROMIA 1+; PLATELET ESTIMATE ADEQUATE (NORMAL); TARGET CELLS 1+
--- NOTE | 2016-10-23 12:11 | PN ---
Teaching Attending Note Name of Resident: Caty Jarrett ATTENDING PHYSICIAN STATEMENT I saw and evaluated the patient. I reviewed the resident's note and discussed the case with the resident. I agree with the resident's findings and plan as documented. SUBJECTIVE: no fever ro chills, has no cp or SOB. still with minimal Abd pain OBJECTIVE: NAD Lungs:clear lungs CV: RRR, 3/6 SM at LLSB , and 3/6 SM at apex EXT:1+ pitting edema on Legs. erythema and brownish discoloration ASSESSMENT AND PLAN: 61 year old female, with a significant past medical history of hypertension, hypercholesterolemia, CAD, [place](X2, s/pp defibrillator/pacemaker and CABG), CHF, DM II, kidney stones , peripheral neuropathy, hypothyroidism, CCY , chronic transaminitis , and non compliance presented with abd pain and SOB , was found to have Acute S CHF exacerbation and bacteremia 1- Acute on chronic systolic CHF: much improved. weight and edema are better - cont home dose 80 mg po BID - cont Lisinopril - cont toprol 100 - tele with no events - replete electrolytes 2- G+ Bacteremia: unclear source. - cont Abx per ID , day 8 of IV Abx ( 14 days ) then 14 po abx 3- LIANNA : likely prerenal azotemia in setting of CHF - monitor 4- Chronic trop leak, at base line cont BB resume statin 5- LFTS abnormality: chronic . Now back to base line records from liver specialist obtained and in chart 6- hypoglycemia : resolved DVT px HLOC
--- NOTE | 2016-10-23 13:27 | PN ---
Progress Note, Physician Chief Complaint: feels better no c/o History of Present Illness: The patient is a 61 year old black female, with a significant past medical history of hypertension, hyperlipidemia, [place], CAD s/p defibrillator/pacemaker s/ p CABG, [place], severe systolic CHF, hypothyroidism, kidney stones, peripheral neuropathy, anxiety/depression, who presents to the emergency department from the office of Dr. San at the liver transplant center at [facility], a week after being discharged (ED visit on 10/04/16) for worsening shortness of breath and lower extremity edema today. The patient reports exertional SOB. She states she can walk for a few minutes, but states she has to sit and rest secondary to her dyspnea. She states her lower extremities are more swollen today, but admits to taking her medications today. She also reports diffuse abdominal discomfort today. She states she recently changed her PMD, but denies having made an appointment to meet the new PMD, Dr. Rueda. As per discharge summary from Dr. San, the patient was being seen for hepatomegaly to evaluate for autoimmune hepatitis. The patient is not currently on medication for her liver. She denies chest pain, headache and dizziness. She denies fever, chills, nausea , vomit, diarrhea and constipation. She denies dysuria, frequency, urgency and hematuria. Allergies: aspirin Past surgical history: PEG tube placement, Stents x2, CABG (2003), ICD/ Pacemaker (November), cholecystectomy (April 2016) Social history: current everyday tobacco use (3 cigarettes daily). Denies alcohol or drug use PCP - Dr. Parrish Ferrer/ Dr. Rueda Natural Resource Specialist - Dr. Dick Cage - Current Medication List Current Medications: Active Medications Acetaminophen (Tylenol -) 650 mg PO Q6H PRN PRN Reason: FEVER OR PAIN Last Admin: 10/17/16 00:59 Dose: 650 mg Clopidogrel Bisulfate (Plavix -) 75 mg PO DAILY [facility] Last Admin: 10/23/16 10:07 Dose: Not Given Duloxetine HCl (Cymbalta -) 20 mg PO DAILY [facility] Last Admin: 10/23/16 10:07 Dose: Not Given Furosemide (Lasix -) 80 mg PO BID@0600,1400 [facility] Last Admin: 10/23/16 13:18 Dose: 80 mg Heparin Sodium (Porcine) (Heparin -) 5,000 unit SQ TID [facility] Last Admin: 10/23/16 13:24 Dose: Not Given Cefazolin Sodium/Dextrose (Ancef 2 Gm Premixed Ivpb -) 50 mls @ 100 mls/hr IVPB Q8H-IV [facility] Last Admin: 10/23/16 09:14 Dose: 100 mls/hr Insulin Aspart (Novolog Vial Sliding Scale -) 1 vial SQ TIDAC [facility] PRN Reason: Protocol Last Admin: 10/23/16 11:35 Dose: Not Given Levothyroxine Sodium (Synthroid -) 75 mcg PO DAILY@0700 [facility] Last Admin: 10/23/16 06:25 Dose: 75 mcg Lisinopril (Prinivil) 5 mg PO DAILY [facility] Last Admin: 10/23/16 10:07 Dose: Not Given Metoclopramide HCl (Reglan Injection -) 10 mg IVPUSH Q6H PRN PRN Reason: NAUSEA AND/OR VOMITING Last Admin: 10/17/16 01:15 Dose: 10 mg Metoprolol Succinate (Toprol Xl -) 100 mg PO DAILY [facility] Last Admin: 10/23/16 09:12 Dose: 100 mg Nicotine (Nicoderm Patch -) 21 mg TD DAILY [facility] Last Admin: 10/23/16 09:12 Dose: Not Given Potassium Chloride (K-Dur -) 20 meq PO BID [facility] Stop: 10/24/16 21:59 Last Admin: 10/23/16 10:07 Dose: Not Given Spironolactone (Aldactone -) 50 mg PO DAILY [facility] Last Admin: 10/23/16 10:07 Dose: Not Given - Objective Vital Signs: Vital Signs Temperature 98 F 10/23/16 10:00 Pulse Rate 80 10/23/16 10:00 Respiratory Rate 20 10/23/16 10:00 Blood Pressure 125/55 10/23/16 10:00 O2 Sat by Pulse Oximetry (%) 92 L 10/23/16 09:00 Eyes: Yes: WNL, Conjunctiva Clear, EOM Intact HENT: Yes: WNL, Atraumatic, Normocephalic Neck: Yes: WNL, Supple, Trachea Midline Cardiovascular: Yes: WNL, Regular Rate and Rhythm Respiratory: Yes: WNL, Regular, CTA Bilaterally Gastrointestinal: Yes: WNL, Normal Bowel Sounds Genitourinary: Yes: WNL Musculoskeletal: Yes: WNL Extremities: Yes: WNL Edema: Yes Integumentary: Yes: WNL Neurological: Yes: WNL, Alert, Oriented ...Motor Strength: WNL Psychiatric: Yes: WNL Labs: CBC, BMP 10/23/16 05:35 10/23/16 05:35 Assessment/Plan - Problems (1) Dyspepsia Code(s): K30 - FUNCTIONAL DYSPEPSIA (2) Hyperbilirubinemia Code(s): E80.6 - OTHER DISORDERS OF BILIRUBIN METABOLISM (3) Hyperlipidemia Assessment/Plan: total cholesterol 86 mg/dL Code(s): E78.5 - HYPERLIPIDEMIA, UNSPECIFIED (4) Hypertension Assessment/Plan: Continue present medications (on mutliple medications for both severe systolic CHF and HTN). Code(s): I10 - ESSENTIAL (PRIMARY) HYPERTENSION (5) Peripheral neuropathy Code(s): G62.9 - POLYNEUROPATHY, UNSPECIFIED (6) Status post THR (total hip replacement) Code(s): Z96.649 - PRESENCE OF UNSPECIFIED ARTIFICIAL HIP JOINT (7) Postoperative abdominal pain Code(s): R10.9 - UNSPECIFIED ABDOMINAL PAIN G89.18 - OTHER ACUTE POSTPROCEDURAL PAIN (8) Hypokalemia Assessment/Plan: K+ : (now 3.5; keep 4-4.5) Mg 1.4: replete, and keep Mg 2-2.3. Keep PO4 2.5-3.0 Code(s): E87.6 - HYPOKALEMIA (9) Lower extremity edema Code(s): R60.0 - LOCALIZED EDEMA (10) Cigarette nicotine dependence Assessment/Plan: Pt continues to say she smokes only a few cigarettes a day, though her daughter says she smokes much more. Code(s): F17.210 - NICOTINE DEPENDENCE, CIGARETTES, UNCOMPLICATED (11) Coronary artery disease Assessment/Plan: Diet, exercise, medications, and smoking cessation to aid in preventing further need for PCI and to avoid cardiac events. Code(s): I25.10 - ATHSCL HEART DISEASE OF [place] CORONARY ARTERY W/O ANG PCTRS (12) Depression Assessment/Plan: Pt presently refuses counseling; on Cymbalta. Code(s): F32.9 - MAJOR DEPRESSIVE DISORDER, SINGLE EPISODE, UNSPECIFIED (13) Diabetes Code(s): E11.9 - TYPE 2 DIABETES MELLITUS WITHOUT COMPLICATIONS Qualifiers: Diabetes mellitus type: type 2 Diabetes mellitus complication status: with unspecified complications Diabetes mellitus continuous churn buttermaker insulin use: with long-term use Qualified Code(s): E11.8 - Type 2 diabetes mellitus with unspecified complications; Z79.4 - snf (current) use of insulin (14) Hypothyroidism Assessment/Plan: Mildly reduced TSH and free T4; mildly elevated free T3. Code(s): E03.9 - HYPOTHYROIDISM, UNSPECIFIED (15) ICD (implantable cardioverter-defibrillator) in place Assessment/Plan: recently interrogated; occasional episodes of NSVT. Code(s): Z95.810 - PRESENCE OF AUTOMATIC (IMPLANTABLE) CARDIAC DEFIBRILLATOR (16) Acute on chronic systolic and diastolic heart failure, NYHA class 1 Assessment/Plan: Discussed with Dr. Griffin; agree with changing IV to PO furosemide. f/u BUN/Cr, Is and Os (has Lam), electrolytes, daily weight (pt has lost a significant amount since admission, and now weighs 155 lbs). Replete K+: f/u Mg2+. Code(s): I50.43 - ACUTE ON CHRONIC COMBINED SYSTOLIC AND DIASTOLIC HRT FAIL (17) NSVT (nonsustained ventricular tachycardia) Assessment/Plan: Continue metoprolol, lisinopril, spironolactone. Maintain electrolytes WNL (replet K, Mg, and PO4 today, and follow serially as pt is converted to PO furosemide). Code(s): I47.2 - VENTRICULAR TACHYCARDIA (18) Sleep apnea Assessment/Plan: Pt sleeps fitfully at night, then seeps hours during the day. Recommend sleep studies to r/o sleep apnea.. Code(s): G47.30 - SLEEP APNEA, UNSPECIFIED (19) Bacteremia Assessment/Plan: Pt is on IV antibiotics; f/u blood cultures (negative as of 10/18/2016). Code(s): R78.81 - BACTEREMIA
--- NOTE | 2016-10-23 16:42 | PN ---
Progress Note, Physician History of Present Illness: Pt seen and examined at bedside. She is awake and alert. She denies shortness of breath. She feels that her lower extremity edema is improving. She is eager to go home. - Current Medication List Current Medications: Active Medications Acetaminophen (Tylenol -) 650 mg PO Q6H PRN PRN Reason: FEVER OR PAIN Last Admin: 10/17/16 00:59 Dose: 650 mg Clopidogrel Bisulfate (Plavix -) 75 mg PO DAILY [facility] Last Admin: 10/23/16 10:07 Dose: Not Given Duloxetine HCl (Cymbalta -) 20 mg PO DAILY [facility] Last Admin: 10/23/16 10:07 Dose: Not Given Furosemide (Lasix -) 80 mg PO BID@0600,1400 [facility] Last Admin: 10/23/16 13:18 Dose: 80 mg Heparin Sodium (Porcine) (Heparin -) 5,000 unit SQ TID [facility] Last Admin: 10/23/16 13:24 Dose: Not Given Cefazolin Sodium/Dextrose (Ancef 2 Gm Premixed Ivpb -) 50 mls @ 100 mls/hr IVPB Q8H-IV [facility] Last Admin: 10/23/16 09:14 Dose: 100 mls/hr Insulin Aspart (Novolog Vial Sliding Scale -) 1 vial SQ TIDAC [facility] PRN Reason: Protocol Last Admin: 10/23/16 11:35 Dose: Not Given Levothyroxine Sodium (Synthroid -) 75 mcg PO DAILY@0700 [facility] Last Admin: 10/23/16 06:25 Dose: 75 mcg Lisinopril (Prinivil) 5 mg PO DAILY [facility] Last Admin: 10/23/16 10:07 Dose: Not Given Metoclopramide HCl (Reglan Injection -) 10 mg IVPUSH Q6H PRN PRN Reason: NAUSEA AND/OR VOMITING Last Admin: 10/17/16 01:15 Dose: 10 mg Metoprolol Succinate (Toprol Xl -) 100 mg PO DAILY [facility] Last Admin: 10/23/16 09:12 Dose: 100 mg Nicotine (Nicoderm Patch -) 21 mg TD DAILY [facility] Last Admin: 10/23/16 09:12 Dose: Not Given Potassium Chloride (K-Dur -) 20 meq PO BID [facility] Stop: 10/24/16 21:59 Last Admin: 10/23/16 10:07 Dose: Not Given Spironolactone (Aldactone -) 50 mg PO DAILY [facility] Last Admin: 10/23/16 10:07 Dose: Not Given - Objective Vital Signs: Vital Signs Temperature 98 F 10/23/16 14:00 Pulse Rate 66 10/23/16 14:00 Respiratory Rate 20 10/23/16 14:00 Blood Pressure 116/62 10/23/16 14:00 O2 Sat by Pulse Oximetry (%) 92 L 10/23/16 09:00 Constitutional: Yes: Calm Eyes: Yes: Conjunctiva Clear HENT: Yes: Atraumatic Neck: Yes: Supple Cardiovascular: Yes: S1, S2 Respiratory: Yes: CTA Bilaterally Gastrointestinal: Yes: Soft Genitourinary: Yes: WNL Musculoskeletal: Yes: WNL Edema: Yes Edema: LLE: 1+, RLE: 1+ Neurological: Yes: Oriented Psychiatric: Yes: Oriented Labs: CBC, BMP 10/23/16 05:35 10/23/16 05:35 Problem List - Problems (1) Abdominal pain Code(s): R10.9 - UNSPECIFIED ABDOMINAL PAIN (2) CHF (congestive heart failure) Code(s): I50.9 - HEART FAILURE, UNSPECIFIED (3) Sepsis Code(s): A41.9 - SEPSIS, UNSPECIFIED ORGANISM (4) LIANNA (acute kidney injury) Code(s): N17.9 - ACUTE KIDNEY FAILURE, UNSPECIFIED Assessment/Plan Current Medications Generic Name Dose Route Start Last Admin Trade Name Freq PRN Reason Stop Dose Admin Acetaminophen 650 mg 10/15/16 10:52 10/17/16 00:59 Tylenol - PO 650 mg Q6H PRN Administration FEVER OR PAIN Clopidogrel Bisulfate 75 mg 10/12/16 10:00 10/23/16 10:07 Plavix - PO Not Given DAILY [facility] Duloxetine HCl 20 mg 10/19/16 10:00 10/23/16 10:07 Cymbalta - PO Not Given DAILY [facility] Furosemide 80 mg 10/22/16 14:00 10/23/16 13:18 Lasix - PO 80 mg BID@0600,1400 [facility] Administration Heparin Sodium (Porcine) 5,000 unit 10/11/16 22:00 10/23/16 13:24 Heparin - SQ Not Given TID [facility] Cefazolin Sodium/Dextrose 50 mls @ 100 mls/hr 10/19/16 18:00 10/23/16 09:14 Ancef 2 Gm Premixed Ivpb - IVPB 100 mls/hr Q8H-IV [facility] Administration Insulin Aspart 1 vial 10/18/16 11:00 10/23/16 11:35 Novolog Vial Sliding Scale - SQ Not Given TIDAC [facility] Protocol Levothyroxine Sodium 75 mcg 10/12/16 07:00 10/23/16 06:25 Synthroid - PO 75 mcg DAILY@0700 [facility] Administration Lisinopril 5 mg 10/12/16 10:00 10/23/16 10:07 Prinivil PO Not Given DAILY [facility] Metoclopramide HCl 10 mg 10/14/16 23:07 10/17/16 01:15 Reglan Injection - IVPUSH 10 mg Q6H PRN Administration NAUSEA AND/OR VOMITING Metoprolol Succinate 100 mg 10/21/16 10:00 10/23/16 09:12 Toprol Xl - PO 100 mg DAILY [facility] Administration Nicotine 21 mg 10/18/16 13:45 10/23/16 09:12 Nicoderm Patch - TD Not Given DAILY [facility] Potassium Chloride 20 meq 10/22/16 22:00 10/23/16 10:07 K-Dur - PO 10/24/16 21:59 Not Given BID [facility] Spironolactone 50 mg 10/12/16 10:00 10/23/16 10:07 Aldactone - PO Not Given DAILY [facility] Impression 1. LIANNA 2. CHF 3. sepsis 4. CAD 5. DM 6. chol 7. COPD 8. hypothyroidism Plan - cont with PO lasix - cont aldactone and monitor potassium - replace lytes - discussed salt and fluid intake with pt - LIANNA in part cardiorenal - elevate legs when possible - will follow Dr Lowry
[2016-10-23] MEDS ORDERED: ATORVASTATIN CA 20 MG TABLET (FP) PO SCH (22:00)
[2016-10-23] MEDS: NAPH,MB-DB/K PH,MBDB POWDER PACKET PO SCH (22:03)
[2016-10-24] MEDS: CEFAZOLIN 2 GM/D5W 50 ML IVPB SCH ×3 (01:28→18:35)
[2016-10-24] MEDS: LEVOTHYROXINE NA 75 MCG TABLET (FP) PO SCH (06:12)
[2016-10-24] MEDS: FUROSEMIDE 40 MG TABLET (FP) PO SCH ×2 (06:12→14:03)
[2016-10-24] MEDS: HEPARIN NA (PORCINE) 5,000 UNITS/ML 1ML VIAL SQ SCH ×3 (06:13→22:00)
[2016-10-24] MEDS: INSULIN SLIDING SCALE (NOVOLOG) 1 VIAL SQ SCH ×3 (06:13→16:51)
[2016-10-24 08:01] LABS: CALCIUM 8.6 mg/dL (8.5-10.1); COCKROFT - GAULT 90.27; CREATININE 0.7 mg/dL (0.55-1.02); MAGNESIUM 1.9 mg/dL (1.8-2.4)
[2016-10-24] MEDS ORDERED: PT OWN MED DRAWER 7, Y5N ONE (08:01)
[2016-10-24] MEDS: NICOTINE 21 MG/24 HOURS TOPICAL PATCH TD SCH (09:19)
[2016-10-24] MEDS: POTASSIUM CHLORIDE TABS 20 MEQ TABLET.ER (FP) PO SCH ×2 (09:20→22:00)
[2016-10-24] MEDS: LISINOPRIL 5 MG TABLET (FP) PO SCH (09:20)
[2016-10-24] MEDS: SPIRONOLACTONE 25 MG TABLET (FP) PO SCH (09:20)
[2016-10-24] MEDS: METOPROLOL SUCCINATE 100 MG TAB.SR.24H (FP) PO SCH (09:20)
[2016-10-24] MEDS: CLOPIDOGREL BISULFATE 75 MG TABLET (FP) PO SCH (09:20)
[2016-10-24] MEDS: DULoxetine HCL 20 MG CAPSULE.DR (FP) PO SCH (09:21)
[2016-10-24] MEDS: NAPH,MB-DB/K PH,MBDB POWDER PACKET PO SCH ×2 (09:21→10:01)
--- NOTE | 2016-10-24 11:48 | PN ---
Physical Exam: SUBJECTIVE: Patient seen and examined at bed side. Complaints of pain over the right thigh. Denies numbness, tingling, decreased sensation or change in range of motion. Patient was irritated when asked ROS and didn't want to speak at that time. OBJECTIVE: Vital Signs Period Temp Pulse Resp BP Sys/Santoro Pulse Ox Last 24 Hr 97.7 F-98.4 F 66-79 18-20 97-124/53-71 100-100 GENERAL: The patient is awake, alert, in no acute distress, irritated. Refused physical exam. Laboratory Results - last 24 hr 10/23/16 10/23/16 10/24/16 05:35 15:47 05:38 Neutrophils % 71.0 D Lymphocytes % 21.0 Monocytes % 7.0 Myelocytes 1 D Differential Comment Manual diff done Platelet Estimate Adequate Hypochromic-Microcytic 1+ Anisocytosis 2+ Macrocytosis Few Target Cells 1+ Morphology Comment Slide scanned Sodium 140 Potassium 4.3 D Chloride 98 Carbon Dioxide 35 H Anion Gap 7 L BUN 13 Creatinine 0.7 POC Glucometer 118 Random Glucose 80 Calcium 8.6 Magnesium 1.9 Active Medications Generic Name Dose Route Start Last Admin Trade Name Freq PRN Reason Stop Dose Admin Acetaminophen 650 mg 10/15/16 10:52 10/17/16 00:59 Tylenol - PO 650 mg Q6H PRN Administration FEVER OR PAIN Atorvastatin Calcium 20 mg 10/23/16 22:00 10/23/16 21:57 Lipitor - PO 20 mg HS RINA Administration Clopidogrel Bisulfate 75 mg 10/12/16 10:00 10/24/16 09:20 Plavix - PO 75 mg DAILY RINA Administration Duloxetine HCl 20 mg 10/19/16 10:00 10/24/16 09:21 Cymbalta - PO 20 mg DAILY RINA Administration Furosemide 80 mg 10/22/16 14:00 10/24/16 06:12 Lasix - PO 80 mg BID@0600,1400 RINA Administration Heparin Sodium (Porcine) 5,000 unit 10/11/16 22:00 10/24/16 06:13 Heparin - SQ Not Given TID RINA Cefazolin Sodium/Dextrose 50 mls @ 100 mls/hr 10/19/16 18:00 10/24/16 09:19 Ancef 2 Gm Premixed Ivpb - IVPB 100 mls/hr Q8H-IV RINA Administration Insulin Aspart 1 vial 10/18/16 11:00 10/24/16 11:43 Novolog Vial Sliding Scale - SQ Not Given TIDAC [facility] Protocol Levothyroxine Sodium 75 mcg 10/12/16 07:00 10/24/16 06:12 Synthroid - PO 75 mcg DAILY@0700 RINA Administration Lisinopril 5 mg 10/12/16 10:00 10/24/16 09:20 Prinivil PO 5 mg DAILY RINA Administration Metoclopramide HCl 10 mg 10/14/16 23:07 10/17/16 01:15 Reglan Injection - IVPUSH 10 mg Q6H PRN Administration NAUSEA AND/OR VOMITING Metoprolol Succinate 100 mg 10/21/16 10:00 10/24/16 09:20 Toprol Xl - PO 100 mg DAILY RINA Administration Nicotine 21 mg 10/18/16 13:45 10/24/16 09:19 Nicoderm Patch - TD 21 mg DAILY RINA Administration Potassium Chloride 20 meq 10/22/16 22:00 10/24/16 09:20 K-Dur - PO 10/24/16 21:59 20 meq BID RINA Administration Potassium Phos/Sodium Phos 1 packet 10/23/16 22:00 10/24/16 10:01 Phos-Nak Packet - PO 10/24/16 22:01 Not Given BID RINA Spironolactone 50 mg 10/12/16 10:00 10/24/16 09:20 Aldactone - PO 50 mg DAILY RINA Administration ASSESSMENT/PLAN: Patient is a 61 year old female 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 # Group B Strep bacteremia- Improving Unknown etiology. Leukocytosis resolved Repeat blood cultures negative IV Cefazolin 1gm Q8H Day 7, needs total of 14 days of IV antibiotics followed by 14 days of PO Amoxicillin 500mg TID x 14 days. Refused PICC line placement and doesn't want to go to a rehab. Will speak with the psychiatric social worker about the possibilities. # Acute on chronic systolic CHF- Resolving Admitted in Telemetry Continuous Cardiac monitoring, PVCs in the monitor Daily Weight, On admission 185 lbs----> 153 lbs Changed IV Lasix to PO Lasix 80 mg BID Continue Spironolactone 50 mg PO Daily Patient's pacemaker was interrogated last month, next scheduled in November,. # Hypokalmia/Hypomagnesemia-Resolved K-4.3/ Mg-1.9. # LIANNA likely prerenal -Resolved # Non compliance Patient has visited [facility] 8 times this year, goes to [facility] and other hospitals frequently, was recently discharged from [place] (last week) as per patients daughter. Patient is non compliant to medication at home and refuses medications here at the hospital. Needs constant counseling and family support or else patients medical condition will get worse due to non compliance. # Hypertension-today hypotensive Metoprolol Succinate increased to 100 mg PO DAILY Lisinopril 5mg PO daily # Hyperlipidemia Continue Lipitor 20mg PO HS # DM HbA1c on 08/04- 6.6 Finger stick glucose monitoring Insulin sliding scale # CAD s/p AR 2003, CABG in 2003 s/p stents2 Continue Plavix 75mg po daily # COPD: Not in exacerbation Duoneb PRN # Hypothyroidism TSH-0.25 08/23/16 Continue Synthoid 75 mcg po daily # Chronic Elevated liver enzymes with Hyperbilirubinemia (in baseline now)- likely due to hepatic congestion secondary to CHF. Has done work up in the past. Called placed to Dr. San ([phone]) to get past records. All previous labs and Dr. San's recent note attached in the chart. Avoid hepatotoxic drugs. Spoke with Dr. Evans, has chronic hyperbilirubinemia, no further management required at this time. # FEN Not on IV fluids. Electrolytes to be repeated tomorrow morning. Cardiac diet, Low Na diet # Prophylaxis For DVT: Heparin SQ TID For GI: Not indicated # Disposition: Transferred from Telemetry to Med-Surg. Duration of stay unknown. Illness, Investigation and Plan of care explained to the patient. She verbalized understanding. Case seen and discussed with Dr. Haas. Problem List - Problems (1) LIANNA (acute kidney injury) Code(s): N17.9 - ACUTE KIDNEY FAILURE, UNSPECIFIED (2) Abdominal pain Code(s): R10.9 - UNSPECIFIED ABDOMINAL PAIN (3) CHF (congestive heart failure) Code(s): I50.9 - HEART FAILURE, UNSPECIFIED (4) Elevated liver function tests Code(s): R94.5 - ABNORMAL RESULTS OF LIVER FUNCTION STUDIES (5) Noncompliance with medication regimen Code(s): Z91.14 - PATIENT'S OTHER NONCOMPLIANCE WITH MEDICATION REGIMEN Visit type - Emergency Visit Emergency Visit: Yes ED Registration Date: 10/11/16 Care time: The patient presented to the Emergency Department on the above date and was hospitalized for further evaluation of their emergent condition. - New Patient This patient is new to me today: No - Critical Care Critical Care patient: No - Discharge Referral Referred to [facility] Med P.C.: No
--- NOTE | 2016-10-24 13:59 | PN ---
Progress Note, Physician History of Present Illness: Pt seen and examined at bedside. She is awake and alert. She denies shortness of breath or palpitations. - Current Medication List Current Medications: Active Medications Acetaminophen (Tylenol -) 650 mg PO Q6H PRN PRN Reason: FEVER OR PAIN Last Admin: 10/17/16 00:59 Dose: 650 mg Atorvastatin Calcium (Lipitor -) 20 mg PO HS [facility] Last Admin: 10/23/16 21:57 Dose: 20 mg Clopidogrel Bisulfate (Plavix -) 75 mg PO DAILY [facility] Last Admin: 10/24/16 09:20 Dose: 75 mg Duloxetine HCl (Cymbalta -) 20 mg PO DAILY [facility] Last Admin: 10/24/16 09:21 Dose: 20 mg Furosemide (Lasix -) 80 mg PO BID@0600,1400 [facility] Last Admin: 10/24/16 06:12 Dose: 80 mg Heparin Sodium (Porcine) (Heparin -) 5,000 unit SQ TID [facility] Last Admin: 10/24/16 06:13 Dose: Not Given Cefazolin Sodium/Dextrose (Ancef 2 Gm Premixed Ivpb -) 50 mls @ 100 mls/hr IVPB Q8H-IV [facility] Last Admin: 10/24/16 09:19 Dose: 100 mls/hr Insulin Aspart (Novolog Vial Sliding Scale -) 1 vial SQ TIDAC [facility] PRN Reason: Protocol Last Admin: 10/24/16 11:43 Dose: Not Given Levothyroxine Sodium (Synthroid -) 75 mcg PO DAILY@0700 [facility] Last Admin: 10/24/16 06:12 Dose: 75 mcg Lisinopril (Prinivil) 5 mg PO DAILY [facility] Last Admin: 10/24/16 09:20 Dose: 5 mg Metoclopramide HCl (Reglan Injection -) 10 mg IVPUSH Q6H PRN PRN Reason: NAUSEA AND/OR VOMITING Last Admin: 10/17/16 01:15 Dose: 10 mg Metoprolol Succinate (Toprol Xl -) 100 mg PO DAILY [facility] Last Admin: 10/24/16 09:20 Dose: 100 mg Nicotine (Nicoderm Patch -) 21 mg TD DAILY [facility] Last Admin: 10/24/16 09:19 Dose: 21 mg Potassium Chloride (K-Dur -) 20 meq PO BID [facility] Stop: 10/24/16 21:59 Last Admin: 10/24/16 09:20 Dose: 20 meq Potassium Phos/Sodium Phos (Phos-Nak Packet -) 1 packet PO BID RINA Stop: 10/24/16 22:01 Last Admin: 10/24/16 10:01 Dose: Not Given Spironolactone (Aldactone -) 50 mg PO DAILY RINA Last Admin: 10/24/16 09:20 Dose: 50 mg - Objective Vital Signs: Vital Signs Temperature 97.7 F 10/24/16 07:19 Pulse Rate 75 10/24/16 07:19 Respiratory Rate 20 10/24/16 07:20 Blood Pressure 99/56 10/24/16 07:19 O2 Sat by Pulse Oximetry (%) 100 10/24/16 07:20 Constitutional: Yes: Calm Eyes: Yes: Conjunctiva Clear HENT: Yes: Atraumatic Neck: Yes: Supple Cardiovascular: Yes: S1, S2 Respiratory: Yes: CTA Bilaterally Gastrointestinal: Yes: Normal Bowel Sounds, Soft Genitourinary: Yes: WNL Musculoskeletal: Yes: WNL Edema: Yes Edema: LLE: 1+, RLE: 1+ Neurological: Yes: Oriented Psychiatric: Yes: Oriented Labs: CBC, BMP 10/23/16 05:35 10/24/16 05:38 Problem List - Problems (1) Abdominal pain Code(s): R10.9 - UNSPECIFIED ABDOMINAL PAIN (2) CHF (congestive heart failure) Code(s): I50.9 - HEART FAILURE, UNSPECIFIED (3) Sepsis Code(s): A41.9 - SEPSIS, UNSPECIFIED ORGANISM (4) LIANNA (acute kidney injury) Code(s): N17.9 - ACUTE KIDNEY FAILURE, UNSPECIFIED Assessment/Plan Current Medications Generic Name Dose Route Start Last Admin Trade Name Freq PRN Reason Stop Dose Admin Acetaminophen 650 mg 10/15/16 10:52 10/17/16 00:59 Tylenol - PO 650 mg Q6H PRN Administration FEVER OR PAIN Atorvastatin Calcium 20 mg 10/23/16 22:00 10/23/16 21:57 Lipitor - PO 20 mg HS RINA Administration Clopidogrel Bisulfate 75 mg 10/12/16 10:00 10/24/16 09:20 Plavix - PO 75 mg DAILY RINA Administration Duloxetine HCl 20 mg 10/19/16 10:00 10/24/16 09:21 Cymbalta - PO 20 mg DAILY RINA Administration Furosemide 80 mg 10/22/16 14:00 10/24/16 06:12 Lasix - PO 80 mg BID@0600,1400 RINA Administration Heparin Sodium (Porcine) 5,000 unit 10/11/16 22:00 10/24/16 06:13 Heparin - SQ Not Given TID RINA Cefazolin Sodium/Dextrose 50 mls @ 100 mls/hr 10/19/16 18:00 10/24/16 09:19 Ancef 2 Gm Premixed Ivpb - IVPB 100 mls/hr Q8H-IV RINA Administration Insulin Aspart 1 vial 10/18/16 11:00 10/24/16 11:43 Novolog Vial Sliding Scale - SQ Not Given TIDAC [facility] Protocol Levothyroxine Sodium 75 mcg 10/12/16 07:00 10/24/16 06:12 Synthroid - PO 75 mcg DAILY@0700 RINA Administration Lisinopril 5 mg 10/12/16 10:00 10/24/16 09:20 Prinivil PO 5 mg DAILY RINA Administration Metoclopramide HCl 10 mg 10/14/16 23:07 10/17/16 01:15 Reglan Injection - IVPUSH 10 mg Q6H PRN Administration NAUSEA AND/OR VOMITING Metoprolol Succinate 100 mg 10/21/16 10:00 10/24/16 09:20 Toprol Xl - PO 100 mg DAILY [facility] Administration Nicotine 21 mg 10/18/16 13:45 10/24/16 09:19 Nicoderm Patch - TD 21 mg DAILY RINA Administration Potassium Chloride 20 meq 10/22/16 22:00 10/24/16 09:20 K-Dur - PO 10/24/16 21:59 20 meq BID RINA Administration Potassium Phos/Sodium Phos 1 packet 10/23/16 22:00 10/24/16 10:01 Phos-Nak Packet - PO 10/24/16 22:01 Not Given BID [facility] Spironolactone 50 mg 10/12/16 10:00 10/24/16 09:20 Aldactone - PO 50 mg DAILY RINA Administration Impression 1. LIANNA 2. CHF 3. sepsis 4. CAD 5. DM 6. chol 7. COPD 8. hypothyroidism Plan - cont diuretics - will see pt in office - discussed low salt diet and fluid intake at length. Pt was not compliant with salt and fluid restriction - LIANNA in part cardiorenal - elevate legs when possible - will follow Dr Lowry
--- NOTE | 2016-10-24 14:02 | PN ---
Progress Note, Physician Chief Complaint: Pt denies chest pain or dyspnea. Occasional sharp pain "in the vagina". History of Present Illness: The patient is a 61 year old black female, with a significant past medical history of hypertension, hyperlipidemia, Dm, CAD s/p defibrillator/pacemaker s/ p CABG, [place], severe systolic CHF, hypothyroidism, kidney stones, peripheral neuropathy, anxiety/depression, who presents to the emergency department from the office of Dr. San at the liver transplant center at [facility], a week after being discharged (ED visit on 10/04/16) for worsening shortness of breath and lower extremity edema today. The patient reports exertional SOB. She states she can walk for a few minutes, but states she has to sit and rest secondary to her dyspnea. She states her lower extremities are more swollen today, but admits to taking her medications today. She also reports diffuse abdominal discomfort today. She states she recently changed her PMD, but denies having made an appointment to meet the new PMD, Dr. Rueda. As per discharge summary from Dr. San, the patient was being seen for hepatomegaly to evaluate for autoimmune hepatitis. The patient is not currently on medication for her liver. She denies chest pain, headache and dizziness. She denies fever, chills, nausea , vomit, diarrhea and constipation. She denies dysuria, frequency, urgency and hematuria. Allergies: aspirin Past surgical history: PEG tube placement, Stents x2, CABG (2003), ICD/ Pacemaker (November), cholecystectomy (April 2016) Social history: current everyday tobacco use (3 cigarettes daily). Denies alcohol or drug use PCP - Dr. Parrish Ferrer/ Dr. Rueda Boat Repairer - Dr. Dick Cage - Current Medication List Current Medications: Active Medications Acetaminophen (Tylenol -) 650 mg PO Q6H PRN PRN Reason: FEVER OR PAIN Last Admin: 10/17/16 00:59 Dose: 650 mg Atorvastatin Calcium (Lipitor -) 20 mg PO HS [facility] Last Admin: 10/23/16 21:57 Dose: 20 mg Clopidogrel Bisulfate (Plavix -) 75 mg PO DAILY RINA Last Admin: 10/24/16 09:20 Dose: 75 mg Duloxetine HCl (Cymbalta -) 20 mg PO DAILY [facility] Last Admin: 10/24/16 09:21 Dose: 20 mg Furosemide (Lasix -) 80 mg PO BID@0600,1400 [facility] Last Admin: 10/24/16 06:12 Dose: 80 mg Heparin Sodium (Porcine) (Heparin -) 5,000 unit SQ TID [facility] Last Admin: 10/24/16 06:13 Dose: Not Given Cefazolin Sodium/Dextrose (Ancef 2 Gm Premixed Ivpb -) 50 mls @ 100 mls/hr IVPB Q8H-IV [facility] Last Admin: 10/24/16 09:19 Dose: 100 mls/hr Insulin Aspart (Novolog Vial Sliding Scale -) 1 vial SQ TIDAC [facility] PRN Reason: Protocol Last Admin: 10/24/16 11:43 Dose: Not Given Levothyroxine Sodium (Synthroid -) 75 mcg PO DAILY@0700 [facility] Last Admin: 10/24/16 06:12 Dose: 75 mcg Lisinopril (Prinivil) 5 mg PO DAILY [facility] Last Admin: 10/24/16 09:20 Dose: 5 mg Metoclopramide HCl (Reglan Injection -) 10 mg IVPUSH Q6H PRN PRN Reason: NAUSEA AND/OR VOMITING Last Admin: 10/17/16 01:15 Dose: 10 mg Metoprolol Succinate (Toprol Xl -) 100 mg PO DAILY [facility] Last Admin: 10/24/16 09:20 Dose: 100 mg Nicotine (Nicoderm Patch -) 21 mg TD DAILY [facility] Last Admin: 10/24/16 09:19 Dose: 21 mg Potassium Chloride (K-Dur -) 20 meq PO BID [facility] Stop: 10/24/16 21:59 Last Admin: 10/24/16 09:20 Dose: 20 meq Potassium Phos/Sodium Phos (Phos-Nak Packet -) 1 packet PO BID [facility] Stop: 10/24/16 22:01 Last Admin: 10/24/16 10:01 Dose: Not Given Spironolactone (Aldactone -) 50 mg PO DAILY [facility] Last Admin: 10/24/16 09:20 Dose: 50 mg - Objective Vital Signs: Vital Signs Temperature 97.7 F 10/24/16 07:19 Pulse Rate 75 10/24/16 07:19 Respiratory Rate 20 10/24/16 07:20 Blood Pressure 99/56 10/24/16 07:19 O2 Sat by Pulse Oximetry (%) 100 10/24/16 07:20 Constitutional: Yes: Anxious Eyes: Yes: WNL HENT: Yes: WNL Neck: Yes: WNL Cardiovascular: Yes: Murmur, S1, S2 (split) Respiratory: Yes: Regular Gastrointestinal: Yes: Soft ...Rectal Exam: Yes: Deferred Genitourinary: No: Anuria Musculoskeletal: Yes: Muscle Weakness Edema: Yes Edema: LLE: 1+, RLE: 1+ Peripheral Pulses WNL: No Peripheral Pulses: Left Doralis Pedis: 1+, Right Dorsalis Pedis: 1+ Integumentary: Yes: WNL Neurological: Yes: Alert, Oriented, Weakness Psychiatric: Yes: Alert, Oriented, Other Labs: CBC, BMP 10/23/16 05:35 10/24/16 05:38 Abnormal Lab Results 10/24/16 05:38 Carbon Dioxide 35 H Anion Gap 7 L Problem List - Problems (1) Dyspepsia Code(s): K30 - FUNCTIONAL DYSPEPSIA (2) Hyperbilirubinemia Code(s): E80.6 - OTHER DISORDERS OF BILIRUBIN METABOLISM (3) Hyperlipidemia Assessment/Plan: total cholesterol 86 mg/dL On atorvastatin 20 mg daily. Code(s): E78.5 - HYPERLIPIDEMIA, UNSPECIFIED (4) Hypertension Assessment/Plan: Continue present medications (on mutliple medications for both severe systolic CHF and HTN). Code(s): I10 - ESSENTIAL (PRIMARY) HYPERTENSION (5) Peripheral neuropathy Code(s): G62.9 - POLYNEUROPATHY, UNSPECIFIED (6) Status post THR (total hip replacement) Code(s): Z96.649 - PRESENCE OF UNSPECIFIED ARTIFICIAL HIP JOINT (7) Hypokalemia Assessment/Plan: Repleted K, MG, and PO4. Code(s): E87.6 - HYPOKALEMIA (8) Lower extremity edema Code(s): R60.0 - LOCALIZED EDEMA (9) Cigarette nicotine dependence Assessment/Plan: Pt continues to say she smokes only a few cigarettes a day, though her daughter says she smokes much more. Continue nicotine patch. Code(s): F17.210 - NICOTINE DEPENDENCE, CIGARETTES, UNCOMPLICATED (10) Coronary artery disease Assessment/Plan: Diet, exercise, medications, and smoking cessation to aid in preventing further need for PCI and to avoid cardiac events. Code(s): I25.10 - ATHSCL HEART DISEASE OF [place] CORONARY ARTERY W/O ANG PCTRS (11) Depression Assessment/Plan: Pt presently refuses counseling; on Cymbalta. 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 Code(s): E03.9 - HYPOTHYROIDISM, UNSPECIFIED (14) ICD (implantable cardioverter-defibrillator) in place Assessment/Plan: recently interrogated; occasional episodes of NSVT. Code(s): Z95.810 - PRESENCE OF AUTOMATIC (IMPLANTABLE) CARDIAC DEFIBRILLATOR (15) Acute on chronic systolic and diastolic heart failure, NYHA class 1 Assessment/Plan: on metoprolol, aldactone, lisinopril, PO furosemide (on 80 mg bid). f/u BUN/Cr , Is and Os, electrolytes, daily weight. Code(s): I50.43 - ACUTE ON CHRONIC COMBINED SYSTOLIC AND DIASTOLIC HRT FAIL (16) NSVT (nonsustained ventricular tachycardia) Assessment/Plan: Continue metoprolol, lisinopril, spironolactone, and furosemide. Maintain electrolytes WNL. Code(s): I47.2 - VENTRICULAR TACHYCARDIA (17) Sleep apnea Assessment/Plan: Pt sleeps fitfully at night, then seeps hours during the day. Recommend sleep studies to r/o sleep apnea. Code(s): G47.30 - SLEEP APNEA, UNSPECIFIED (18) Bacteremia Assessment/Plan: Pt is on IV antibiotics; f/u blood cultures (negative as of 10/18/2016). WBC, elevated 10/19/16, are now WNL. Code(s): R78.81 - BACTEREMIA
--- NOTE | 2016-10-24 16:14 | PN ---
Teaching Attending Note Name of Resident: Caty Jarrett ATTENDING PHYSICIAN STATEMENT I saw and evaluated the patient. I reviewed the resident's note and discussed the case with the resident. I agree with the resident's findings and plan as documented. SUBJECTIVE: no fever or chills, denies CP , has minimal Abd pain in lower abd OBJECTIVE: NAD Lungs:clear lungs CV: RRR, 3/6 SM at LLSB , and 3/6 SM at apex EXT:1+ pitting edema on Legs. erythema and brownish discoloration ASSESSMENT AND PLAN: 61 year old female, with a significant past medical history of hypertension, hypercholesterolemia, CAD, [place](X2, s/pp defibrillator/pacemaker and CABG), CHF, DM II, kidney stones , peripheral neuropathy, hypothyroidism, CCY , chronic transaminitis , and non compliance presented with abd pain and SOB , was found to have Acute S CHF exacerbation and bacteremia 1- Acute on chronic systolic CHF: much improved. - cont home dose 80 mg po BID - cont Lisinopril - cont toprol 100 - tele with no events but few PVCS 2- G+ Bacteremia: unclear source. no ANGY needed per card . - cont Abx per ID , day 9 of IV Abx ( 14 days ) then 14 po abx 3- LIANNA : likely prerenal azotemia in setting of CHF - monitor 4- Chronic trop leak, at base line cont BB cont statin 5- LFTS abnormality: chronic . Now back to base line records from liver specialist obtained and in chart 6- hypoglycemia : resolved DVT px HLOC. refused NH placement fro IV abx. will be dc home after finishing IV abx
[2016-10-24] MEDS ORDERED: METOCLOPRAMIDE HCL INJECTION 10 MG/2 ML VIAL IVPUSH PRN (19:19)
[2016-10-24] MEDS ORDERED: ACETAMINOPHEN 325 MG TABLET (FP) PO PRN (19:19)
[2016-10-24] MEDS ORDERED: NAPH,MB-DB/K PH,MBDB POWDER PACKET PO SCH (22:00)
[2016-10-24] MEDS: ATORVASTATIN CA 20 MG TABLET (FP) PO SCH (22:00)
[2016-10-25] MEDS: CEFAZOLIN 2 GM/D5W 50 ML IVPB SCH ×3 (02:35→17:34)
[2016-10-25] MEDS: LEVOTHYROXINE NA 75 MCG TABLET (FP) PO SCH (06:19)
[2016-10-25] MEDS: INSULIN SLIDING SCALE (NOVOLOG) 1 VIAL SQ SCH ×3 (06:19→17:37)
[2016-10-25] MEDS: HEPARIN NA (PORCINE) 5,000 UNITS/ML 1ML VIAL SQ SCH ×3 (06:19→22:05)
[2016-10-25] MEDS: FUROSEMIDE 40 MG TABLET (FP) PO SCH ×2 (06:19→15:13)
--- NOTE | 2016-10-25 07:48 | PN ---
Physical Exam: SUBJECTIVE: Patient seen and examined at bed side this morning. No complaints. Denies chest pain, sob, cough, palpitation, abdominal pain, nausea, vomiting. Bowel/Bladder habit normal. Sleep/Appetite normal. OBJECTIVE: Vital Signs Period Temp Pulse Resp BP Sys/Santoro Pulse Ox Last 24 Hr 97.7 F-99.0 F 70-72 20-20 100-105/53-67 96-96 GENERAL: AA female, lying comfortably in bed eating breakfast, Awake, alert, and fully oriented, in no acute distress. HEAD: Normal with no signs of trauma. EYES: EOM intact, no pallor or icterus. EARS, NOSE, THROAT: Ears normal. Moist mucous membranes. NECK: Normal range of motion, supple without lymphadenopathy,, or masses. No JVD LUNGS: B/L equal air entry, decreased breath sounds at the b/l bases. No crackles. No wheezes. No accessory muscle use. HEART: Regular rate and rhythm, normal S1 and S2 with pansystolic murmur. ABDOMEN: Ventral hernia, Soft, tenderness around the umbilical area, distended, edematous- improved, normoactive bowel sounds, no guarding, no rebound, no masses. No hepatomegaly or splenomegaly. MUSCULOSKELETAL: Normal range of motion at all joints. No bony deformities or tenderness. No CVA tenderness. UPPER EXTREMITIES: 2+ pulses, warm, well-perfused. No cyanosis. No clubbing. No peripheral edema. LOWER EXTREMITIES: 2+ pulses, warm, well-perfused. No calf tenderness. peripheral edema 2+ upto the mid calf, no tenderness. NEUROLOGICAL: Cranial nerves II-XII intact. Normal speech. Gait not observed PSYCHIATRIC: Cooperative. Good eye contact. Appropriate mood and affect. SKIN: Warm, dry, normal turgor, no rashes or lesions noted, normal capillary refill. Laboratory Results - last 24 hr 10/24/16 10/24/16 10/25/16 05:38 16:48 06:17 Sodium 140 Potassium 4.3 D Chloride 98 Carbon Dioxide 35 H Anion Gap 7 L BUN 13 Creatinine 0.7 POC Glucometer 100 77 Random Glucose 80 Calcium 8.6 Magnesium 1.9 Active Medications Generic Name Dose Route Start Last Admin Trade Name Freq PRN Reason Stop Dose Admin Acetaminophen 650 mg 10/24/16 19:19 Tylenol - PO Q6H PRN FEVER OR PAIN Atorvastatin Calcium 20 mg 10/24/16 22:00 10/24/16 22:00 Lipitor - PO 20 mg HS [facility] Administration Clopidogrel Bisulfate 75 mg 10/25/16 10:00 Plavix - PO DAILY [facility] Duloxetine HCl 20 mg 10/25/16 10:00 Cymbalta - PO DAILY [facility] Furosemide 80 mg 10/25/16 06:00 10/25/16 06:19 Lasix - PO 80 mg BID@0600,1400 [facility] Administration Heparin Sodium (Porcine) 5,000 unit 10/24/16 22:00 10/25/16 06:19 Heparin - SQ 5,000 unit TID [facility] Administration Cefazolin Sodium/Dextrose 50 mls @ 100 mls/hr 10/25/16 02:00 10/25/16 02:35 Ancef 2 Gm Premixed Ivpb - IVPB 100 mls/hr Q8H-IV [facility] Administration Insulin Aspart 1 vial 10/25/16 07:00 10/25/16 06:19 Novolog Vial Sliding Scale - SQ Not Given TIDAC [facility] Protocol Levothyroxine Sodium 75 mcg 10/25/16 07:00 10/25/16 06:19 Synthroid - PO 75 mcg DAILY@0700 [facility] Administration Lisinopril 5 mg 10/25/16 10:00 Prinivil PO DAILY [facility] Metoclopramide HCl 10 mg 10/24/16 19:19 Reglan Injection - IVPUSH Q6H PRN NAUSEA AND/OR VOMITING Metoprolol Succinate 100 mg 10/25/16 10:00 Toprol Xl - PO DAILY [facility] Nicotine 21 mg 10/25/16 10:00 Nicoderm Patch - TD DAILY [facility] Potassium Chloride 20 meq 10/24/16 22:00 10/24/16 22:00 K-Dur - PO 10/26/16 21:59 20 meq BID [facility] Administration Spironolactone 50 mg 10/25/16 10:00 Aldactone - PO DAILY [facility] ASSESSMENT/PLAN: Patient is a 61 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 # Group B Strep bacteremia- Improving Unknown etiology. Leukocytosis resolved. Repeat blood cultures negative IV Cefazolin 1gm Q8H Day 8, needs total of 14 days of IV antibiotics followed by 14 days of PO Amoxicillin 500mg TID x 14 days. Refused PICC line placement and doesn't want to go to a rehab. Will speak with the drug abuse social worker about the possibilities. # Acute on chronic systolic CHF- Resolving Admitted in Telemetry Continuous Cardiac monitoring, PVCs in the monitor Daily Weight, On admission 185 lbs----> 151 lbs Changed IV Lasix to PO Lasix 80 mg BID Continue Spironolactone 50 mg PO Daily Patient's pacemaker was interrogated last month, next scheduled in November,. # Hypokalmia/Hypomagnesemia-Resolved # LIANNA likely prerenal -Resolved # Hypertension- Metoprolol Succinate 100 mg PO DAILY Lisinopril 5mg PO daily # Hyperlipidemia Continue Lipitor 20mg PO HS # DM HbA1c on 08/04- 6.6 Finger stick glucose monitoring Insulin sliding scale # CAD s/p OR 2003, CABG in 2003 s/p stents2 Continue Plavix 75mg po daily # COPD: Not in exacerbation Duoneb PRN # Hypothyroidism TSH-0.25 08/23/16 Continue Synthoid 75 mcg po daily # Chronic Elevated liver enzymes with Hyperbilirubinemia (in baseline now)- likely due to hepatic congestion secondary to CHF. Has done work up in the past. Called placed to Dr. San ([phone]) to get past records. All previous labs and Dr. San's recent note attached in the chart. Avoid hepatotoxic drugs. # FEN Not on IV fluids. Electrolytes to be repeated tomorrow morning. Cardiac diet, Low Na diet # Prophylaxis For DVT: Heparin SQ TID For GI: Not indicated # Disposition: Transferred from Telemetry to Med-Surg. Duration of stay unknown. Illness, Investigation and Plan of care explained to the patient. She verbalized understanding. Case seen and discussed with Dr. Villegas. Problem List - Problems (1) LIANNA (acute kidney injury) Code(s): N17.9 - ACUTE KIDNEY FAILURE, UNSPECIFIED (2) Abdominal pain Code(s): R10.9 - UNSPECIFIED ABDOMINAL PAIN (3) CHF (congestive heart failure) Code(s): I50.9 - HEART FAILURE, UNSPECIFIED (4) Elevated liver function tests Code(s): R94.5 - ABNORMAL RESULTS OF LIVER FUNCTION STUDIES (5) Noncompliance with medication regimen Code(s): Z91.14 - PATIENT'S OTHER NONCOMPLIANCE WITH MEDICATION REGIMEN Visit type - Emergency Visit Emergency Visit: Yes ED Registration Date: 10/11/16 Care time: The patient presented to the Emergency Department on the above date and was hospitalized for further evaluation of their emergent condition. - New Patient This patient is new to me today: No - Critical Care Critical Care patient: No
[2016-10-25 08:08] LABS: MCH 26.3 pg (25.7-33.7); MCHC 31.8 g/dl (32.0-36.0); MEAN CELL VOLUME 82.6 fl (80-96); MEAN PLT VOLUME 7.8 fl (7.5-11.1); PLATELET COUNT 245 K/MM3 (134-434); RDW 22.9 % (11.6-15.6); WHITE BLOOD COUNT 8.3 K/mm3 (4.0-10.0)
[2016-10-25 08:40] LABS: CALCIUM 8.4 mg/dL (8.5-10.1); COCKROFT - GAULT 125.545; CREATININE 0.5 mg/dL (0.55-1.02)
[2016-10-25] MEDS ORDERED: PT OWN MED DRAWER 7, Y5N ONE (10:43)
[2016-10-25] MEDS: SPIRONOLACTONE 25 MG TABLET (FP) PO SCH (10:55)
[2016-10-25] MEDS: POTASSIUM CHLORIDE TABS 20 MEQ TABLET.ER (FP) PO SCH ×2 (10:58→22:05)
[2016-10-25] MEDS: METOPROLOL SUCCINATE 100 MG TAB.SR.24H (FP) PO SCH (10:59)
[2016-10-25] MEDS: LISINOPRIL 5 MG TABLET (FP) PO SCH (10:59)
[2016-10-25] MEDS: DULoxetine HCL 20 MG CAPSULE.DR (FP) PO SCH (11:00)
[2016-10-25] MEDS: CLOPIDOGREL BISULFATE 75 MG TABLET (FP) PO SCH (11:00)
[2016-10-25] MEDS: NICOTINE 21 MG/24 HOURS TOPICAL PATCH TD SCH (11:07)
--- NOTE | 2016-10-25 12:19 | PN ---
Progress Note, Physician Chief Complaint: feels better no c/o History of Present Illness: The patient is a 61 year old black female, with a significant past medical history of hypertension, hyperlipidemia, Dm, CAD s/p defibrillator/pacemaker s/ p CABG, NM, severe systolic CHF, hypothyroidism, kidney stones, peripheral neuropathy, anxiety/depression, who presents to the emergency department from the office of Dr. San at the liver transplant center at [facility], a week after being discharged (ED visit on 10/04/16) for worsening shortness of breath and lower extremity edema today. The patient reports exertional SOB. She states she can walk for a few minutes, but states she has to sit and rest secondary to her dyspnea. She states her lower extremities are more swollen today, but admits to taking her medications today. She also reports diffuse abdominal discomfort today. She states she recently changed her PMD, but denies having made an appointment to meet the new PMD, Dr. Rueda. As per discharge summary from Dr. San, the patient was being seen for hepatomegaly to evaluate for autoimmune hepatitis. The patient is not currently on medication for her liver. She denies chest pain, headache and dizziness. She denies fever, chills, nausea , vomit, diarrhea and constipation. She denies dysuria, frequency, urgency and hematuria. Allergies: aspirin Past surgical history: PEG tube placement, Stents x2, CABG (2003), ICD/ Pacemaker (November), cholecystectomy (April 2016) Social history: current everyday tobacco use (3 cigarettes daily). Denies alcohol or drug use PCP - Dr. Parrish Ferrer/ Dr. Rueda [employer] - Dr. Dick Cage - Current Medication List Current Medications: Active Medications Acetaminophen (Tylenol -) 650 mg PO Q6H PRN PRN Reason: FEVER OR PAIN Atorvastatin Calcium (Lipitor -) 20 mg PO HS [facility] Last Admin: 10/24/16 22:00 Dose: 20 mg Clopidogrel Bisulfate (Plavix -) 75 mg PO DAILY [facility] Last Admin: 10/25/16 11:00 Dose: 75 mg Duloxetine HCl (Cymbalta -) 20 mg PO DAILY [facility] Last Admin: 10/25/16 11:00 Dose: 20 mg Furosemide (Lasix -) 80 mg PO BID@0600,1400 [facility] Last Admin: 10/25/16 06:19 Dose: 80 mg Heparin Sodium (Porcine) (Heparin -) 5,000 unit SQ TID [facility] Last Admin: 10/25/16 06:19 Dose: 5,000 unit Cefazolin Sodium/Dextrose (Ancef 2 Gm Premixed Ivpb -) 50 mls @ 100 mls/hr IVPB Q8H-IV [facility] Last Admin: 10/25/16 11:00 Dose: 100 mls/hr Insulin Aspart (Novolog Vial Sliding Scale -) 1 vial SQ TIDAC [facility] PRN Reason: Protocol Last Admin: 10/25/16 12:08 Dose: Not Given Levothyroxine Sodium (Synthroid -) 75 mcg PO DAILY@0700 [facility] Last Admin: 10/25/16 06:19 Dose: 75 mcg Lisinopril (Prinivil) 5 mg PO DAILY [facility] Last Admin: 10/25/16 10:59 Dose: 5 mg Metoclopramide HCl (Reglan Injection -) 10 mg IVPUSH Q6H PRN PRN Reason: NAUSEA AND/OR VOMITING Metoprolol Succinate (Toprol Xl -) 100 mg PO DAILY [facility] Last Admin: 10/25/16 10:59 Dose: 100 mg Nicotine (Nicoderm Patch -) 21 mg TD DAILY [facility] Last Admin: 10/25/16 11:07 Dose: 21 mg Potassium Chloride (K-Dur -) 20 meq PO BID [facility] Stop: 10/26/16 21:59 Last Admin: 10/25/16 10:58 Dose: 20 meq Spironolactone (Aldactone -) 50 mg PO DAILY [facility] Last Admin: 10/25/16 10:55 Dose: 50 mg - Objective Vital Signs: Vital Signs Temperature 97.7 F 10/25/16 06:00 Pulse Rate 70 10/25/16 06:00 Respiratory Rate 20 10/25/16 06:00 Blood Pressure 100/53 10/25/16 06:00 O2 Sat by Pulse Oximetry (%) 96 10/24/16 22:00 Eyes: Yes: WNL, Conjunctiva Clear, EOM Intact HENT: Yes: WNL, Atraumatic, Normocephalic Neck: Yes: WNL, Supple, Trachea Midline Cardiovascular: Yes: WNL, Regular Rate and Rhythm Respiratory: Yes: WNL, Regular, CTA Bilaterally Gastrointestinal: Yes: WNL, Normal Bowel Sounds Genitourinary: Yes: WNL Musculoskeletal: Yes: WNL Extremities: Yes: WNL Edema: No Integumentary: Yes: WNL Neurological: Yes: WNL, Alert, Oriented ...Motor Strength: WNL Psychiatric: Yes: WNL Labs: CBC, BMP 10/25/16 07:00 10/25/16 07:00 Assessment/Plan Problems (1) Dyspepsia Code(s): K30 - FUNCTIONAL DYSPEPSIA (2) Hyperbilirubinemia Code(s): E80.6 - OTHER DISORDERS OF BILIRUBIN METABOLISM (3) Hyperlipidemia Assessment/Plan: total cholesterol 86 mg/dL On atorvastatin 20 mg daily. Code(s): E78.5 - HYPERLIPIDEMIA, UNSPECIFIED (4) Hypertension Assessment/Plan: Continue present medications (on mutliple medications for both severe systolic CHF and HTN). Code(s): I10 - ESSENTIAL (PRIMARY) HYPERTENSION (5) Peripheral neuropathy Code(s): G62.9 - POLYNEUROPATHY, UNSPECIFIED (6) Status post THR (total hip replacement) Code(s): Z96.649 - PRESENCE OF UNSPECIFIED ARTIFICIAL HIP JOINT (7) Hypokalemia Assessment/Plan: Repleted K, MG, and PO4. Code(s): E87.6 - HYPOKALEMIA (8) Lower extremity edema Code(s): R60.0 - LOCALIZED EDEMA (9) Cigarette nicotine dependence Assessment/Plan: Pt continues to say she smokes only a few cigarettes a day, though her daughter says she smokes much more. Continue nicotine patch. Code(s): F17.210 - NICOTINE DEPENDENCE, CIGARETTES, UNCOMPLICATED (10) Coronary artery disease Assessment/Plan: Diet, exercise, medications, and smoking cessation to aid in preventing further need for PCI and to avoid cardiac events. Code(s): I25.10 - ATHSCL HEART DISEASE OF [place] CORONARY ARTERY W/O ANG PCTRS (11) Depression Assessment/Plan: Pt presently refuses counseling; on Cymbalta. Code(s): F32.9 - MAJOR DEPRESSIVE DISORDER, SINGLE EPISODE, UNSPECIFIED (12) Diabetes Code(s): E11.9 - TYPE 2 DIABETES MELLITUS WITHOUT COMPLICATIONS Qualifiers: Diabetes mellitus type: type 2 Diabetes mellitus complication status: with unspecified complications Diabetes mellitus ocean transportation intermediary insulin use: with ocean transportation intermediary use Qualified Code(s): E11.8 - Type 2 diabetes mellitus with unspecified complications; Z79.4 - FCI (current) use of insulin (13) Hypothyroidism Assessment/Plan: Mildly reduced TSH and free T4; mildly elevated free T3. Code(s): E03.9 - HYPOTHYROIDISM, UNSPECIFIED (14) ICD (implantable cardioverter-defibrillator) in place Assessment/Plan: recently interrogated; occasional episodes of NSVT. Code(s): Z95.810 - PRESENCE OF AUTOMATIC (IMPLANTABLE) CARDIAC DEFIBRILLATOR (15) Acute on chronic systolic and diastolic heart failure, NYHA class 1 Assessment/Plan: on metoprolol, aldactone, lisinopril, PO furosemide (on 80 mg bid). f/u BUN/Cr , Is and Os, electrolytes, daily weight. Code(s): I50.43 - ACUTE ON CHRONIC COMBINED SYSTOLIC AND DIASTOLIC HRT FAIL (16) NSVT (nonsustained ventricular tachycardia) Assessment/Plan: Continue metoprolol, lisinopril, spironolactone, and furosemide. Maintain electrolytes WNL. Code(s): I47.2 - VENTRICULAR TACHYCARDIA (17) Sleep apnea Assessment/Plan: Pt sleeps fitfully at night, then seeps hours during the day. Recommend sleep studies to r/o sleep apnea. Code(s): G47.30 - SLEEP APNEA, UNSPECIFIED (18) Bacteremia Assessment/Plan: Pt is on IV antibiotics; f/u blood cultures (negative as of 10/18/2016). WBC, elevated 10/19/16, are now WNL. Code(s): R78.81 - BACTEREMIA
--- NOTE | 2016-10-25 12:58 | PN ---
Progress Note, Physician History of Present Illness: Pt seen and examined at bedside. She is awake and alert. She denies shortness of breath. - Current Medication List Current Medications: Active Medications Acetaminophen (Tylenol -) 650 mg PO Q6H PRN PRN Reason: FEVER OR PAIN Atorvastatin Calcium (Lipitor -) 20 mg PO HS [facility] Last Admin: 10/24/16 22:00 Dose: 20 mg Clopidogrel Bisulfate (Plavix -) 75 mg PO DAILY [facility] Last Admin: 10/25/16 11:00 Dose: 75 mg Duloxetine HCl (Cymbalta -) 20 mg PO DAILY [facility] Last Admin: 10/25/16 11:00 Dose: 20 mg Furosemide (Lasix -) 80 mg PO BID@0600,1400 [facility] Last Admin: 10/25/16 06:19 Dose: 80 mg Heparin Sodium (Porcine) (Heparin -) 5,000 unit SQ TID [facility] Last Admin: 10/25/16 06:19 Dose: 5,000 unit Cefazolin Sodium/Dextrose (Ancef 2 Gm Premixed Ivpb -) 50 mls @ 100 mls/hr IVPB Q8H-IV [facility] Last Admin: 10/25/16 11:00 Dose: 100 mls/hr Insulin Aspart (Novolog Vial Sliding Scale -) 1 vial SQ TIDAC [facility] PRN Reason: Protocol Last Admin: 10/25/16 12:08 Dose: Not Given Levothyroxine Sodium (Synthroid -) 75 mcg PO DAILY@0700 [facility] Last Admin: 10/25/16 06:19 Dose: 75 mcg Lisinopril (Prinivil) 5 mg PO DAILY [facility] Last Admin: 10/25/16 10:59 Dose: 5 mg Metoclopramide HCl (Reglan Injection -) 10 mg IVPUSH Q6H PRN PRN Reason: NAUSEA AND/OR VOMITING Metoprolol Succinate (Toprol Xl -) 100 mg PO DAILY [facility] Last Admin: 10/25/16 10:59 Dose: 100 mg Nicotine (Nicoderm Patch -) 21 mg TD DAILY [facility] Last Admin: 10/25/16 11:07 Dose: 21 mg Potassium Chloride (K-Dur -) 20 meq PO BID [facility] Stop: 10/26/16 21:59 Last Admin: 10/25/16 10:58 Dose: 20 meq Spironolactone (Aldactone -) 50 mg PO DAILY [facility] Last Admin: 10/25/16 10:55 Dose: 50 mg - Objective Vital Signs: Vital Signs Temperature 98.8 F 10/25/16 10:00 Pulse Rate 77 10/25/16 10:00 Respiratory Rate 20 10/25/16 10:00 Blood Pressure 97/50 10/25/16 10:00 O2 Sat by Pulse Oximetry (%) 98 10/25/16 10:00 Constitutional: Yes: Calm Eyes: Yes: Conjunctiva Clear HENT: Yes: Atraumatic Neck: Yes: Supple Cardiovascular: Yes: S1, S2 Respiratory: Yes: CTA Bilaterally Gastrointestinal: Yes: Soft Genitourinary: Yes: WNL Edema: Yes Edema: LLE: Trace, RLE: Trace Neurological: Yes: Oriented Psychiatric: Yes: Oriented Labs: CBC, BMP 10/25/16 07:00 10/25/16 07:00 Problem List - Problems (1) Abdominal pain Code(s): R10.9 - UNSPECIFIED ABDOMINAL PAIN (2) CHF (congestive heart failure) Code(s): I50.9 - HEART FAILURE, UNSPECIFIED (3) Sepsis Code(s): A41.9 - SEPSIS, UNSPECIFIED ORGANISM (4) LIANNA (acute kidney injury) Code(s): N17.9 - ACUTE KIDNEY FAILURE, UNSPECIFIED Assessment/Plan Current Medications Generic Name Dose Route Start Last Admin Trade Name [place] PRN Reason Stop Dose Admin Acetaminophen 650 mg 10/24/16 19:19 Tylenol - PO Q6H PRN FEVER OR PAIN Atorvastatin Calcium 20 mg 10/24/16 22:00 10/24/16 22:00 Lipitor - PO 20 mg HS [facility] Administration Clopidogrel Bisulfate 75 mg 10/25/16 10:00 10/25/16 11:00 Plavix - PO 75 mg DAILY [facility] Administration Duloxetine HCl 20 mg 10/25/16 10:00 10/25/16 11:00 Cymbalta - PO 20 mg DAILY [facility] Administration Furosemide 80 mg 10/25/16 06:00 10/25/16 06:19 Lasix - PO 80 mg BID@0600,1400 [facility] Administration Heparin Sodium (Porcine) 5,000 unit 10/24/16 22:00 10/25/16 06:19 Heparin - SQ 5,000 unit TID [facility] Administration Cefazolin Sodium/Dextrose 50 mls @ 100 mls/hr 10/25/16 02:00 10/25/16 11:00 Ancef 2 Gm Premixed Ivpb - IVPB 100 mls/hr Q8H-IV [facility] Administration Insulin Aspart 1 vial 10/25/16 07:00 10/25/16 12:08 Novolog Vial Sliding Scale - SQ Not Given TIDAC [facility] Protocol Levothyroxine Sodium 75 mcg 10/25/16 07:00 10/25/16 06:19 Synthroid - PO 75 mcg DAILY@0700 [facility] Administration Lisinopril 5 mg 10/25/16 10:00 10/25/16 10:59 Prinivil PO 5 mg DAILY [facility] Administration Metoclopramide HCl 10 mg 10/24/16 19:19 Reglan Injection - IVPUSH Q6H PRN NAUSEA AND/OR VOMITING Metoprolol Succinate 100 mg 10/25/16 10:00 10/25/16 10:59 Toprol Xl - PO 100 mg DAILY [facility] Administration Nicotine 21 mg 10/25/16 10:00 10/25/16 11:07 Nicoderm Patch - TD 21 mg DAILY [facility] Administration Potassium Chloride 20 meq 10/24/16 22:00 10/25/16 10:58 K-Dur - PO 10/26/16 21:59 20 meq BID [facility] Administration Spironolactone 50 mg 10/25/16 10:00 10/25/16 10:55 Aldactone - PO 50 mg DAILY [facility] Administration Impression 1. LIANNA 2. CHF 3. sepsis 4. CAD 5. DM 6. chol 7. COPD 8. hypothyroidism Plan - renal function is stable - cont with diuretics - can follow as oupt - fluid restriction and 2 mg sodium diet - will follow PRN Dr Lowry
--- NOTE | 2016-10-25 21:05 | PN ---
Teaching Attending Note Name of Resident: Caty Jarrett ATTENDING PHYSICIAN STATEMENT I saw and evaluated the patient. I reviewed the resident's note and discussed the case with the resident. I agree with the resident's findings and plan as documented. SUBJECTIVE: Comfortable with no acute distress. No shortness of breath. OBJECTIVE: Vital Signs Temperature 97.7 F 10/25/16 15:16 Pulse Rate 54 L 10/25/16 15:16 Respiratory Rate 18 10/25/16 15:16 Blood Pressure 98/59 10/25/16 15:16 O2 Sat by Pulse Oximetry (%) 98 10/25/16 10:00 CBCD WBC 8.3 K/mm3 (4.0-10.0) 10/25/16 07:00 RBC 4.55 M/mm3 (3.60-5.2) 10/25/16 07:00 Hgb 12.0 GM/dL (10.7-15.3) 10/25/16 07:00 Hct 37.6 % (32.4-45.2) 10/25/16 07:00 MCV 82.6 fl (80-96) 10/25/16 07:00 MCHC 31.8 g/dl (32.0-36.0) L 10/25/16 07:00 RDW 22.9 % (11.6-15.6) H 10/25/16 07:00 Plt Count 245 K/MM3 (134-434) D 10/25/16 07:00 MPV 7.8 fl (7.5-11.1) 10/25/16 07:00 CMP Sodium 139 mmol/L (136-145) 10/25/16 07:00 Potassium 3.8 mmol/L (3.5-5.1) 10/25/16 07:00 Chloride 96 mmol/L (98-107) L 10/25/16 07:00 Carbon Dioxide 34 mmol/L (21-32) H 10/25/16 07:00 Anion Gap 9 (8-16) 10/25/16 07:00 BUN 11 mg/dL (7-18) 10/25/16 07:00 Creatinine 0.5 mg/dL (0.55-1.02) L D 10/25/16 07:00 Creat Clearance w eGFR > 60 (>60) 10/19/16 06:00 Random Glucose 78 mg/dL (74-106) 10/25/16 07:00 Calcium 8.4 mg/dL (8.5-10.1) L 10/25/16 07:00 Total Bilirubin 3.8 mg/dL (0.2-1.0) H D 10/22/16 05:35 AST 20 U/L (15-37) D 10/22/16 05:35 ALT 8 U/L (12-78) L D 10/22/16 05:35 Alkaline Phosphatase 163 U/L (45-117) H 10/22/16 05:35 Total Protein 5.8 g/dl (6.4-8.2) L 10/22/16 05:35 Albumin 2.1 g/dl (3.4-5.0) L 10/22/16 05:35 CARDIAC ENZYMES Creatine Kinase 138 IU/L (26-192) 10/12/16 05:35 Troponin I 0.11 ng/ml (0.00-0.05) H 10/13/16 17:30 Current Medications Generic Name Dose Route Start Last Admin Trade Name Freq PRN Reason Stop Dose Admin Acetaminophen 650 mg 10/24/16 19:19 Tylenol - PO Q6H PRN FEVER OR PAIN Atorvastatin Calcium 20 mg 10/24/16 22:00 10/24/16 22:00 Lipitor - PO 20 mg HS RINA Administration Clopidogrel Bisulfate 75 mg 10/25/16 10:00 10/25/16 11:00 Plavix - PO 75 mg DAILY RINA Administration Duloxetine HCl 20 mg 10/25/16 10:00 10/25/16 11:00 Cymbalta - PO 20 mg DAILY RINA Administration Furosemide 80 mg 10/25/16 06:00 10/25/16 15:13 Lasix - PO 80 mg BID@0600,1400 RINA Administration Heparin Sodium (Porcine) 5,000 unit 10/24/16 22:00 10/25/16 15:14 Heparin - SQ Not Given TID RINA Cefazolin Sodium/Dextrose 50 mls @ 100 mls/hr 10/25/16 02:00 10/25/16 17:34 Ancef 2 Gm Premixed Ivpb - IVPB 100 mls/hr Q8H-IV RINA Administration Insulin Aspart 1 vial 10/25/16 07:00 10/25/16 17:37 Novolog Vial Sliding Scale - SQ Not Given TIDAC [facility] Protocol Levothyroxine Sodium 75 mcg 10/25/16 07:00 10/25/16 06:19 Synthroid - PO 75 mcg DAILY@0700 RINA Administration Lisinopril 5 mg 10/25/16 10:00 10/25/16 10:59 Prinivil PO 5 mg DAILY RINA Administration Metoclopramide HCl 10 mg 10/24/16 19:19 Reglan Injection - IVPUSH Q6H PRN NAUSEA AND/OR VOMITING Metoprolol Succinate 100 mg 10/25/16 10:00 10/25/16 10:59 Toprol Xl - PO 100 mg DAILY [facility] Administration Nicotine 21 mg 10/25/16 10:00 10/25/16 11:07 Nicoderm Patch - TD 21 mg DAILY [facility] Administration Potassium Chloride 20 meq 10/24/16 22:00 10/25/16 10:58 K-Dur - PO 10/26/16 21:59 20 meq BID RINA Administration Spironolactone 50 mg 10/25/16 10:00 10/25/16 10:55 Aldactone - PO 50 mg DAILY RINA Administration Home Medications Medication Instructions Recorded Calamine 8% Topical Lotion - 1 applic TP BID PRN #0 bottle 08/04/16 Clopidogrel Bisulfate [Plavix -] 75 mg PO DAILY #30 tablet 08/04/16 Levothyroxine [Synthroid -] 75 mcg PO DAILY #30 tab 08/04/16 Mineral Oil/Petrolat,Wht/Water 1 applic TP DAILY PRN #0 jar 08/04/16 [Eucerin (Large Jar) -] Spironolactone 50 mg PO DAILY #30 tablet 08/04/16 Furosemide [Lasix -] 80 mg PO BID #60 tablet 08/27/16 Metoprolol Succinate [Toprol Xl] 100 mg PO DAILY #30 tab.er.24h 08/27/16 Potassium Chloride 20 meq PO DAILY #30 tab 08/27/16 Atorvastatin Ca [Lipitor] 20 mg PO HS 09/08/16 Lisinopril [Prinivil] 5 mg PO DAILY #30 tablet 09/14/16 Microbiology 10/18/16 09:03 Blood - Peripheral Venous Blood Culture - Final NO GROWTH AFTER 5 DAYS INCUBATION 10/18/16 08:52 Blood - Peripheral Venous Blood Culture - Final NO GROWTH AFTER 5 DAYS INCUBATION 10/15/16 08:18 Blood - Peripheral Venous Blood Culture - Final Strep Agalactiae Group B 10/15/16 08:19 Blood - Peripheral Venous Blood Culture - Final Strep Agalactiae Group B 10/15/16 09:35 Urine - Urine - Catheterized Urine Culture - Final NO GROWTH OBTAINED PE: as per resident ASSESSMENT AND PLAN: 61 year old female, with a significant past medical history of hypertension, hypercholesterolemia, CAD, [place](X2, s/pp defibrillator/pacemaker and CABG), CHF, DM II, kidney stones , peripheral neuropathy, hypothyroidism, CCY , chronic transaminitis , and non compliance presented with abd pain and SOB , was found to have Acute S CHF exacerbation and bacteremia # Acute on chronic systolic CHF: much improved. continue Lasix 80 mg po BID , Lisinopril 5mg, toprol xl 100 continue # Gram+ Bacteremia: unclear source. no ANGY needed per cardiology. as per ID continue IV antibiotic for 14 days then 14 days of Amoxicillin 500mg tid # Chronic trop leak, at base line ,cont B-Miguel , statin . # LFTS abnormality: chronic . Now back to base line , records from liver specialist obtained and in chart # s/p hypoglycemia : resolved DVT px : Heparin refused NH placement for IV abx. will be dc home after finishing IV abx
[2016-10-25] MEDS: ATORVASTATIN CA 20 MG TABLET (FP) PO SCH (22:05)
[2016-10-26] MEDS: CEFAZOLIN 2 GM/D5W 50 ML IVPB SCH ×3 (02:18→18:47)
[2016-10-26] MEDS: LEVOTHYROXINE NA 75 MCG TABLET (FP) PO SCH (06:20)
[2016-10-26] MEDS: FUROSEMIDE 40 MG TABLET (FP) PO SCH ×2 (06:20→15:15)
[2016-10-26] MEDS: HEPARIN NA (PORCINE) 5,000 UNITS/ML 1ML VIAL SQ SCH ×4 (06:21→23:53)
[2016-10-26] MEDS: INSULIN SLIDING SCALE (NOVOLOG) 1 VIAL SQ SCH ×3 (06:26→17:55)
--- NOTE | 2016-10-26 08:21 | PN ---
Physical Exam: SUBJECTIVE: Patient seen and examined at bed side this morning. No complaints. Denies chest pain, sob, cough, palpitation, abdominal pain, nausea, vomiting. Bowel/Bladder habit normal. Sleep/Appetite normal. OBJECTIVE: Vital Signs Period Temp Pulse Resp BP Sys/Santoro Pulse Ox Last 24 Hr 97.5 F-98.8 F 54-77 18-20 97-112/50-95 97-98 GENERAL: AA female,sitting in bed comfortably, Awake, alert, and fully oriented , in no acute distress. HEAD: Normal with no signs of trauma. EYES: EOM intact, no pallor or icterus. EARS, NOSE, THROAT: Ears normal. Moist mucous membranes. NECK: Normal range of motion, supple without lymphadenopathy, or masses. No JVD LUNGS: B/L equal air entry, decreased breath sounds at the b/l bases-improved. No crackles. No wheezes. No accessory muscle use. HEART: Regular rate and rhythm, normal S1 and S2 with pansystolic murmur. ABDOMEN: Ventral hernia, Soft, tenderness around the umbilical area, distended, edematous- improved, normoactive bowel sounds, no guarding, no rebound, no masses. No hepatomegaly or splenomegaly. MUSCULOSKELETAL: Normal range of motion at all joints. No bony deformities or tenderness. No CVA tenderness. UPPER EXTREMITIES: 2+ pulses, warm, well-perfused. No cyanosis. No clubbing. No peripheral edema. LOWER EXTREMITIES: 2+ pulses, warm, well-perfused. No calf tenderness. peripheral edema 2+ upto the mid calf, no tenderness. NEUROLOGICAL: Cranial nerves II-XII intact. Normal speech. Gait not observed PSYCHIATRIC: Cooperative. Good eye contact. Appropriate mood and affect. SKIN: Warm, dry, normal turgor, no rashes or lesions noted, normal capillary refill. Laboratory Results - last 24 hr 10/25/16 10/25/16 10/25/16 07:00 07:00 11:45 WBC 8.3 RBC 4.55 Hgb 12.0 Hct 37.6 MCV 82.6 MCHC 31.8 L RDW 22.9 H Plt Count 245 D MPV 7.8 Sodium 139 Potassium 3.8 Chloride 96 L Carbon Dioxide 34 H Anion Gap 9 BUN 11 Creatinine 0.5 L D POC Glucometer 209 Random Glucose 78 Calcium 8.4 L 10/25/16 10/26/16 17:33 06:25 WBC RBC Hgb Hct MCV MCHC RDW Plt Count MPV Sodium Potassium Chloride Carbon Dioxide Anion Gap BUN Creatinine POC Glucometer 92 92 Random Glucose Calcium Active Medications Generic Name Dose Route Start Last Admin Trade Name [place] PRN Reason Stop Dose Admin Acetaminophen 650 mg 10/24/16 19:19 Tylenol - PO Q6H PRN FEVER OR PAIN Atorvastatin Calcium 20 mg 10/24/16 22:00 10/25/16 22:05 Lipitor - PO 20 mg HS RINA Administration Clopidogrel Bisulfate 75 mg 10/25/16 10:00 10/25/16 11:00 Plavix - PO 75 mg DAILY RINA Administration Duloxetine HCl 20 mg 10/25/16 10:00 10/25/16 11:00 Cymbalta - PO 20 mg DAILY RINA Administration Furosemide 80 mg 10/25/16 06:00 10/26/16 06:20 Lasix - PO 80 mg BID@0600,1400 RINA Administration Heparin Sodium (Porcine) 5,000 unit 10/24/16 22:00 10/26/16 06:21 Heparin - SQ Not Given TID [facility] Cefazolin Sodium/Dextrose 50 mls @ 100 mls/hr 10/25/16 02:00 10/26/16 02:18 Ancef 2 Gm Premixed Ivpb - IVPB 100 mls/hr Q8H-IV RINA Administration Insulin Aspart 1 vial 10/25/16 07:00 10/26/16 06:26 Novolog Vial Sliding Scale - SQ Not Given TIDAC [facility] Protocol Levothyroxine Sodium 75 mcg 10/25/16 07:00 10/26/16 06:20 Synthroid - PO 75 mcg DAILY@0700 RINA Administration Lisinopril 5 mg 10/25/16 10:00 10/25/16 10:59 Prinivil PO 5 mg DAILY RINA Administration Metoclopramide HCl 10 mg 10/24/16 19:19 Reglan Injection - IVPUSH Q6H PRN NAUSEA AND/OR VOMITING Metoprolol Succinate 100 mg 10/25/16 10:00 10/25/16 10:59 Toprol Xl - PO 100 mg DAILY RINA Administration Nicotine 21 mg 10/25/16 10:00 10/25/16 11:07 Nicoderm Patch - TD 21 mg DAILY RINA Administration Potassium Chloride 20 meq 10/24/16 22:00 10/25/16 22:05 K-Dur - PO 10/26/16 21:59 20 meq BID RINA Administration Spironolactone 50 mg 10/25/16 10:00 10/25/16 10:55 Aldactone - PO 50 mg DAILY RINA Administration ASSESSMENT/PLAN: Patient is a 61 year old female frequent flyer and non complaint patient with chronic abdominal pain (thought to be due to liver cirrhosis/biliary tree strictures s/p lap naomi for acalcalous cholecystitis 05/05), hyperbilirubinemia , HTN, HLD, DM, CAD s/p AL 2003, CABG in 2003 s/p stents2, Systolic CHF s/p ICD /Pacemaker, COPD, current smoker, hypothyroid & peripheral neuropathy presented to the ED with the chief complaint of worsening shortness of breath. # Group B Strep bacteremia- Improving Unknown etiology. Leukocytosis resolved. Repeat blood cultures negative IV Cefazolin 1gm Q8H Day 9 (confirmed with pharmacy; Started on 10/18/16 received 2 doses), needs total of 14 days of IV antibiotics followed by 14 days of PO Amoxicillin 500mg TID x 14 days. Refused PICC line placement and doesn't want to go to a rehab. Will speak with the social worker assistant about the possibilities. # Acute on chronic systolic CHF- Resolving Admitted in Telemetry Continuous Cardiac monitoring Daily Weight, On admission 185 lbs----> 152 lbs Changed IV Lasix to PO Lasix 80 mg BID Continue Spironolactone 50 mg PO Daily Patient's pacemaker was interrogated last month, next scheduled in November,. # Hypokalmia/Hypomagnesemia-Resolved # LIANNA likely prerenal -Resolved # Hypertension- Metoprolol Succinate 100 mg PO DAILY Lisinopril 5mg PO daily # Hyperlipidemia Continue Lipitor 20mg PO HS # DM HbA1c on 08/04- 6.6 Finger stick glucose monitoring Insulin sliding scale # CAD s/p AL 2003, CABG in 2003 s/p stents2 Continue Plavix 75mg po daily # COPD: Not in exacerbation Duoneb PRN # Hypothyroidism TSH-0.25 08/23/16 Continue Synthoid 75 mcg po daily # Chronic Elevated liver enzymes with Hyperbilirubinemia (in baseline now)- likely due to hepatic congestion secondary to CHF. Has done work up in the past. Called placed to Dr. San ([phone]) to get past records. All previous labs and Dr. San's recent note attached in the chart. Avoid hepatotoxic drugs. # FEN Not on IV fluids. Electrolytes to be repeated tomorrow morning. Cardiac diet, Low Na diet # Prophylaxis For DVT: Heparin SQ TID For GI: Not indicated # Disposition: Admitted in Med-Surg. To be discharged after she completes 14 days of antibiotics. Illness, Investigation and Plan of care explained to the patient. She verbalized understanding. Case seen and discussed with Dr. Villegas. Problem List - Problems (1) LIANNA (acute kidney injury) Code(s): N17.9 - ACUTE KIDNEY FAILURE, UNSPECIFIED (2) Abdominal pain Code(s): R10.9 - UNSPECIFIED ABDOMINAL PAIN (3) CHF (congestive heart failure) Code(s): I50.9 - HEART FAILURE, UNSPECIFIED (4) Elevated liver function tests Code(s): R94.5 - ABNORMAL RESULTS OF LIVER FUNCTION STUDIES (5) Noncompliance with medication regimen Code(s): Z91.14 - PATIENT'S OTHER NONCOMPLIANCE WITH MEDICATION REGIMEN Visit type - Emergency Visit Emergency Visit: Yes ED Registration Date: 10/11/16 Care time: The patient presented to the Emergency Department on the above date and was hospitalized for further evaluation of their emergent condition. - New Patient This patient is new to me today: No - Critical Care Critical Care patient: No - Discharge Referral Referred to [facility] Med P.C.: No
--- NOTE | 2016-10-26 08:39 | PN ---
Mental Health Exam - Mental Status Exam Alert and Oriented to: Time, Place, Person Cognitive Function: Grossly Intact Patient Appearance: Unkempt Mood: Apathetic, Anxious, Apprehensive, Hopeful, Irritable Affect: Appropriate Patient Behavior: Restless, Resitive to Care, Cooperative Speech Pattern: Clear, Perseverating Voice Loudness: Normal Thought Process: Intact Thought Disorder: Not Present Hallucinations: None Suicidal Ideation: None Homicidal Ideation: None Insight/Judgement: Good Sleep: Fair Appetite: Fair ("i just itch" 61 yo with CAD, HTN, high cholesterol, past [place], Mood is "OK", Perservating, "i want to get out of here". denies SI, HI, AH VH. he lives with sister on [address], client is mildly anxious but no major Depression, No Quiana, NO Psychosis. May see therapist in the community. )
[2016-10-26] MEDS: CLOPIDOGREL BISULFATE 75 MG TABLET (FP) PO SCH (11:19)
[2016-10-26] MEDS: SPIRONOLACTONE 25 MG TABLET (FP) PO SCH (11:19)
[2016-10-26] MEDS: METOPROLOL SUCCINATE 100 MG TAB.SR.24H (FP) PO SCH (11:19)
[2016-10-26] MEDS: LISINOPRIL 5 MG TABLET (FP) PO SCH (11:19)
[2016-10-26] MEDS: NICOTINE 21 MG/24 HOURS TOPICAL PATCH TD SCH (11:20)
[2016-10-26] MEDS: POTASSIUM CHLORIDE TABS 20 MEQ TABLET.ER (FP) PO SCH (11:20)
[2016-10-26] MEDS: DULoxetine HCL 20 MG CAPSULE.DR (FP) PO SCH (11:20)
[2016-10-26] MEDS ORDERED: PT OWN MED DRAWER 7, Y5N ONE (18:28)
--- NOTE | 2016-10-26 21:11 | PN ---
Teaching Attending Note Name of Resident: Vidal Blackburn ATTENDING PHYSICIAN STATEMENT I saw and evaluated the patient. I reviewed the resident's note and discussed the case with the resident. I agree with the resident's findings and plan as documented. SUBJECTIVE: Patient is doing better , stated that if we don't discharge the patient, will sign AMA. She is well otherwise and has no new complains. OBJECTIVE: Vital Signs Temperature 98.1 F 10/26/16 16:15 Pulse Rate 73 10/26/16 16:15 Respiratory Rate 18 10/26/16 16:15 Blood Pressure 108/68 10/26/16 16:15 O2 Sat by Pulse Oximetry (%) 97 10/26/16 09:00 CBCD WBC 8.3 K/mm3 (4.0-10.0) 10/25/16 07:00 RBC 4.55 M/mm3 (3.60-5.2) 10/25/16 07:00 Hgb 12.0 GM/dL (10.7-15.3) 10/25/16 07:00 Hct 37.6 % (32.4-45.2) 10/25/16 07:00 MCV 82.6 fl (80-96) 10/25/16 07:00 MCHC 31.8 g/dl (32.0-36.0) L 10/25/16 07:00 RDW 22.9 % (11.6-15.6) H 10/25/16 07:00 Plt Count 245 K/MM3 (134-434) D 10/25/16 07:00 MPV 7.8 fl (7.5-11.1) 10/25/16 07:00 CMP Sodium 139 mmol/L (136-145) 10/25/16 07:00 Potassium 3.8 mmol/L (3.5-5.1) 10/25/16 07:00 Chloride 96 mmol/L (98-107) L 10/25/16 07:00 Carbon Dioxide 34 mmol/L (21-32) H 10/25/16 07:00 Anion Gap 9 (8-16) 10/25/16 07:00 BUN 11 mg/dL (7-18) 10/25/16 07:00 Creatinine 0.5 mg/dL (0.55-1.02) L D 10/25/16 07:00 Creat Clearance w eGFR > 60 (>60) 10/19/16 06:00 Random Glucose 78 mg/dL (74-106) 10/25/16 07:00 Calcium 8.4 mg/dL (8.5-10.1) L 10/25/16 07:00 Total Bilirubin 3.8 mg/dL (0.2-1.0) H D 10/22/16 05:35 AST 20 U/L (15-37) D 10/22/16 05:35 ALT 8 U/L (12-78) L D 10/22/16 05:35 Alkaline Phosphatase 163 U/L (45-117) H 10/22/16 05:35 Total Protein 5.8 g/dl (6.4-8.2) L 10/22/16 05:35 Albumin 2.1 g/dl (3.4-5.0) L 10/22/16 05:35 CARDIAC ENZYMES Creatine Kinase 138 IU/L (26-192) 10/12/16 05:35 Troponin I 0.11 ng/ml (0.00-0.05) H 10/13/16 17:30 Current Medications Generic Name Dose Route Start Last Admin Trade Name Freq PRN Reason Stop Dose Admin Acetaminophen 650 mg 10/24/16 19:19 Tylenol - PO Q6H PRN FEVER OR PAIN Atorvastatin Calcium 20 mg 10/24/16 22:00 10/25/16 22:05 Lipitor - PO 20 mg HS RINA Administration Clopidogrel Bisulfate 75 mg 10/25/16 10:00 10/26/16 11:19 Plavix - PO 75 mg DAILY RINA Administration Duloxetine HCl 20 mg 10/25/16 10:00 10/26/16 11:20 Cymbalta - PO 20 mg DAILY RINA Administration Furosemide 80 mg 10/25/16 06:00 10/26/16 15:15 Lasix - PO 80 mg BID@0600,1400 RINA Administration Heparin Sodium (Porcine) 5,000 unit 10/24/16 22:00 10/26/16 15:15 Heparin - SQ 5,000 unit TID RINA Administration Cefazolin Sodium/Dextrose 50 mls @ 100 mls/hr 10/25/16 02:00 10/26/16 18:47 Ancef 2 Gm Premixed Ivpb - IVPB 100 mls/hr Q8H-IV RINA Administration Insulin Aspart 1 vial 10/25/16 07:00 10/26/16 17:55 Novolog Vial Sliding Scale - SQ Not Given TIDAC [facility] Protocol Levothyroxine Sodium 75 mcg 10/25/16 07:00 10/26/16 06:20 Synthroid - PO 75 mcg DAILY@0700 RINA Administration Lisinopril 5 mg 10/25/16 10:00 10/26/16 11:19 Prinivil PO 5 mg DAILY RINA Administration Metoclopramide HCl 10 mg 10/24/16 19:19 Reglan Injection - IVPUSH Q6H PRN NAUSEA AND/OR VOMITING Metoprolol Succinate 100 mg 10/25/16 10:00 10/26/16 11:19 Toprol Xl - PO 100 mg DAILY RINA Administration Nicotine 21 mg 10/25/16 10:00 10/26/16 11:20 Nicoderm Patch - TD 21 mg DAILY RINA Administration Potassium Chloride 20 meq 10/24/16 22:00 10/26/16 11:20 K-Dur - PO 10/26/16 21:59 20 meq BID RINA Administration Spironolactone 50 mg 10/25/16 10:00 10/26/16 11:19 Aldactone - PO 50 mg DAILY RINA Administration Home Medications Medication Instructions Recorded Calamine 8% Topical Lotion - 1 applic TP BID PRN #0 bottle 08/04/16 Clopidogrel Bisulfate [Plavix -] 75 mg PO DAILY #30 tablet 08/04/16 Levothyroxine [Synthroid -] 75 mcg PO DAILY #30 tab 08/04/16 Mineral Oil/Petrolat,Wht/Water 1 applic TP DAILY PRN #0 jar 08/04/16 [Eucerin (Large Jar) -] Spironolactone 50 mg PO DAILY #30 tablet 08/04/16 Furosemide [Lasix -] 80 mg PO BID #60 tablet 08/27/16 Metoprolol Succinate [Toprol Xl] 100 mg PO DAILY #30 tab.er.24h 08/27/16 Potassium Chloride 20 meq PO DAILY #30 tab 08/27/16 Atorvastatin Ca [Lipitor] 20 mg PO HS 09/08/16 Lisinopril [Prinivil] 5 mg PO DAILY #30 tablet 09/14/16 CHEST: Decreased BS BL, otherwise clear Heart: S1S2 positive, BRITTNY 3/6 ASSESSMENT AND PLAN: 61 year old female, with a significant past medical history of hypertension, hypercholesterolemia, CAD, [place](X2, s/pp defibrillator/pacemaker and CABG), CHF, DM II, kidney stones , peripheral neuropathy, hypothyroidism, CCY , chronic transaminitis , and non compliance presented with abd pain and SOB , was found to have Acute S CHF exacerbation and bacteremia # Acute on chronic systolic CHF: improving , swelling of Lower extremities improved , on Lasix 80 mg po BID will continue, cont Lisinopril, cont toprol 100. # Gram+ Bacteremia: on IV antibiotic , no ANGY needed as per card . cont Abx as per ID for total of 14 days IV. # Chronic trop leak, at base line ,cont BB, cont statin # LFTS abnormality: chronic . Now back to base line , records from liver specialist obtained and in chart # s/p hypoglycemia : resolved DVT px : Heparin. refused NH placement fro IV abx. will be dc home after finishing IV abx
[2016-10-26] MEDS: ATORVASTATIN CA 20 MG TABLET (FP) PO SCH ×2 (23:00→23:53)
--- NOTE | 2016-10-26 23:10 | PN ---
Progress Note, Physician Chief Complaint: Pt denies chest pain or dyspnea.Wants to go home. History of Present Illness: The patient is a 61 year old black female, with a significant past medical history of hypertension, hyperlipidemia, Dm, CAD s/p defibrillator/pacemaker s/ p CABG, [place], severe systolic CHF, hypothyroidism, kidney stones, peripheral neuropathy, anxiety/depression, who presents to the emergency department from the office of Dr. San at the liver transplant center at [facility], a week after being discharged (ED visit on 10/04/16) for worsening shortness of breath and lower extremity edema today. The patient reports exertional SOB. She states she can walk for a few minutes, but states she has to sit and rest secondary to her dyspnea. She states her lower extremities are more swollen today, but admits to taking her medications today. She also reports diffuse abdominal discomfort today. She states she recently changed her PMD, but denies having made an appointment to meet the new PMD, Dr. Rueda. As per discharge summary from Dr. San, the patient was being seen for hepatomegaly to evaluate for autoimmune hepatitis. The patient is not currently on medication for her liver. She denies chest pain, headache and dizziness. She denies fever, chills, nausea , vomit, diarrhea and constipation. She denies dysuria, frequency, urgency and hematuria. Allergies: aspirin Past surgical history: PEG tube placement, Stents x2, CABG (2003), ICD/ Pacemaker (November), cholecystectomy (April 2016) Social history: current everyday tobacco use (3 cigarettes daily). Denies alcohol or drug use PCP - Dr. Parrish Ferrer/ Dr. Rueda Burr Machine Operator - Dr. Dick Cage - Current Medication List Current Medications: Active Medications Acetaminophen (Tylenol -) 650 mg PO Q6H PRN PRN Reason: FEVER OR PAIN Atorvastatin Calcium (Lipitor -) 20 mg PO HS [facility] Last Admin: 10/25/16 22:05 Dose: 20 mg Clopidogrel Bisulfate (Plavix -) 75 mg PO DAILY [facility] Last Admin: 10/26/16 11:19 Dose: 75 mg Duloxetine HCl (Cymbalta -) 20 mg PO DAILY [facility] Last Admin: 10/26/16 11:20 Dose: 20 mg Furosemide (Lasix -) 80 mg PO BID@0600,1400 [facility] Last Admin: 10/26/16 15:15 Dose: 80 mg Heparin Sodium (Porcine) (Heparin -) 5,000 unit SQ TID [facility] Last Admin: 10/26/16 15:15 Dose: 5,000 unit Cefazolin Sodium/Dextrose (Ancef 2 Gm Premixed Ivpb -) 50 mls @ 100 mls/hr IVPB Q8H-IV [facility] Last Admin: 10/26/16 18:47 Dose: 100 mls/hr Insulin Aspart (Novolog Vial Sliding Scale -) 1 vial SQ TIDAC [facility] PRN Reason: Protocol Last Admin: 10/26/16 17:55 Dose: Not Given Levothyroxine Sodium (Synthroid -) 75 mcg PO DAILY@0700 [facility] Last Admin: 10/26/16 06:20 Dose: 75 mcg Lisinopril (Prinivil) 5 mg PO DAILY [facility] Last Admin: 10/26/16 11:19 Dose: 5 mg Metoclopramide HCl (Reglan Injection -) 10 mg IVPUSH Q6H PRN PRN Reason: NAUSEA AND/OR VOMITING Metoprolol Succinate (Toprol Xl -) 100 mg PO DAILY [facility] Last Admin: 10/26/16 11:19 Dose: 100 mg Nicotine (Nicoderm Patch -) 21 mg TD DAILY [facility] Last Admin: 10/26/16 11:20 Dose: 21 mg Spironolactone (Aldactone -) 50 mg PO DAILY [facility] Last Admin: 10/26/16 11:19 Dose: 50 mg - Objective Vital Signs: Vital Signs Temperature 98.1 F 10/26/16 16:15 Pulse Rate 73 10/26/16 16:15 Respiratory Rate 18 10/26/16 16:15 Blood Pressure 108/68 10/26/16 16:15 O2 Sat by Pulse Oximetry (%) 97 10/26/16 09:00 Constitutional: Yes: Anxious Eyes: Yes: WNL HENT: Yes: WNL Neck: Yes: WNL Cardiovascular: Yes: Regular Rate and Rhythm Respiratory: Yes: Regular Gastrointestinal: Yes: Soft ...Rectal Exam: Yes: Deferred Genitourinary: No: Anuria Musculoskeletal: Yes: Muscle Weakness Extremities: Yes: Cool Edema: No Peripheral Pulses WNL: No Peripheral Pulses: Left Doralis Pedis: 1+, Right Dorsalis Pedis: 1+ Integumentary: Yes: Bruising Neurological: Yes: Alert, Oriented, Weakness Psychiatric: Yes: Other (anxiety/depression) Labs: CBC, BMP 10/25/16 07:00 10/25/16 07:00 Problem List - Problems (1) Dyspepsia Code(s): K30 - FUNCTIONAL DYSPEPSIA (2) Hyperbilirubinemia Code(s): E80.6 - OTHER DISORDERS OF BILIRUBIN METABOLISM (3) Hyperlipidemia Assessment/Plan: total cholesterol 86 mg/dL On atorvastatin 20 mg daily. Code(s): E78.5 - HYPERLIPIDEMIA, UNSPECIFIED (4) Hypertension Assessment/Plan: Continue present medications (on mutliple medications for both severe systolic CHF and HTN). Code(s): I10 - ESSENTIAL (PRIMARY) HYPERTENSION (5) Peripheral neuropathy Code(s): G62.9 - POLYNEUROPATHY, UNSPECIFIED (6) Status post THR (total hip replacement) Code(s): Z96.649 - PRESENCE OF UNSPECIFIED ARTIFICIAL HIP JOINT (7) Hypokalemia Assessment/Plan: Repleted K, MG, and PO4; f/u serially, especially while o furosemide, aldactone. Code(s): E87.6 - HYPOKALEMIA (8) Lower extremity edema Code(s): R60.0 - LOCALIZED EDEMA (9) Cigarette nicotine dependence Assessment/Plan: Pt continues to say she smokes only a few cigarettes a day, though her daughter says she smokes much more. Continue nicotine patch. Code(s): F17.210 - NICOTINE DEPENDENCE, CIGARETTES, UNCOMPLICATED (10) Coronary artery disease Assessment/Plan: Diet, exercise, medications, and smoking cessation to aid in preventing further need for PCI and to avoid cardiac events. Code(s): I25.10 - ATHSCL HEART DISEASE OF [place] CORONARY ARTERY W/O ANG PCTRS (11) Depression Assessment/Plan: Pt presently refuses counseling; on Cymbalta. 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 Code(s): E03.9 - HYPOTHYROIDISM, UNSPECIFIED (14) ICD (implantable cardioverter-defibrillator) in place Assessment/Plan: recently interrogated; occasional episodes of NSVT. Code(s): Z95.810 - PRESENCE OF AUTOMATIC (IMPLANTABLE) CARDIAC DEFIBRILLATOR (15) Acute on chronic systolic and diastolic heart failure, NYHA class 1 Assessment/Plan: on metoprolol, aldactone, lisinopril, PO furosemide (on 80 mg bid). f/u BUN/Cr , Is and Os, electrolytes, daily weight. Code(s): I50.43 - ACUTE ON CHRONIC COMBINED SYSTOLIC AND DIASTOLIC HRT FAIL (16) NSVT (nonsustained ventricular tachycardia) Assessment/Plan: Continue metoprolol, lisinopril, spironolactone, and furosemide. Maintain electrolytes WNL. Code(s): I47.2 - VENTRICULAR TACHYCARDIA (17) Sleep apnea Assessment/Plan: Pt sleeps fitfully at night, then seeps hours during the day. Recommend sleep studies to r/o sleep apnea. Code(s): G47.30 - SLEEP APNEA, UNSPECIFIED (18) Bacteremia Assessment/Plan: Pt is on IV antibiotics; f/u blood cultures (negative as of 10/18/2016). WBC, elevated 10/19/16, are now WNL. Code(s): R78.81 - BACTEREMIA
[2016-10-27] MEDS: CEFAZOLIN 2 GM/D5W 50 ML IVPB SCH ×2 (01:30→12:41)
[2016-10-27 07:43] LABS: MCH 26.7 pg (25.7-33.7); MCHC 32.7 g/dl (32.0-36.0); MEAN CELL VOLUME 81.6 fl (80-96); MEAN PLT VOLUME 7.9 fl (7.5-11.1); PLATELET COUNT 276 K/MM3 (134-434); RDW 23.6 % (11.6-15.6); WHITE BLOOD COUNT 8.5 K/mm3 (4.0-10.0)
[2016-10-27 08:10] LABS: CALCIUM 8.5 mg/dL (8.5-10.1)
[2016-10-27 08:14] LABS: COCKROFT - GAULT 91.477; CREATININE 0.7 mg/dL (0.55-1.02)
--- NOTE | 2016-10-27 09:05 | PN ---
Physical Exam: SUBJECTIVE: Patient seen and examined OBJECTIVE: Vital Signs Period Temp Pulse Resp BP Sys/Santoro Pulse Ox Last 24 Hr 97.6 F-98.2 F 70-77 18-18 104-110/62-68 97 GENERAL: The patient is awake, alert, and fully oriented, in no acute distress. HEAD: Normal with no signs of trauma. EYES: PERRL, extraocular movements intact, sclera anicteric, conjunctiva clear. No ptosis. ENT: Ears normal, nares patent, oropharynx clear without exudates, moist mucous membranes. NECK: Trachea midline, full range of motion, supple. LUNGS: Breath sounds equal, clear to auscultation bilaterally, no wheezes, no crackles, no accessory muscle use. HEART: Regular rate and rhythm, S1, S2 without murmur, rub or gallop. ABDOMEN: Soft, nontender, nondistended, normoactive bowel sounds, no guarding, no rebound, no hepatosplenomegaly, no masses. EXTREMITIES: 2+ pulses, warm, well-perfused, no edema. NEUROLOGICAL: Cranial nerves II through XII grossly intact. Normal speech, gait not observed. PSYCH: Normal mood, normal affect. SKIN: Warm, dry, normal turgor, no rashes or lesions noted Laboratory Results - last 24 hr 10/26/16 10/27/16 10/27/16 11:41 06:30 06:30 WBC 8.5 RBC 4.30 Hgb 11.5 Hct 35.0 MCV 81.6 MCHC 32.7 RDW 23.6 H Plt Count 276 MPV 7.9 Sodium 137 Potassium 3.7 Chloride 96 L Carbon Dioxide 34 H Anion Gap 7 L BUN 12 Creatinine 0.7 D POC Glucometer 165 Random Glucose 75 Calcium 8.5 Active Medications Generic Name Dose Route Start Last Admin Trade Name Freq PRN Reason Stop Dose Admin Acetaminophen 650 mg 10/24/16 19:19 Tylenol - PO Q6H PRN FEVER OR PAIN Atorvastatin Calcium 20 mg 10/24/16 22:00 10/26/16 23:53 Lipitor - PO Not Given HS [facility] Clopidogrel Bisulfate 75 mg 10/25/16 10:00 10/26/16 11:19 Plavix - PO 75 mg DAILY [facility] Administration Duloxetine HCl 20 mg 10/25/16 10:10/26/16 11:20 Cymbalta - PO 20 mg DAILY [facility] Administration Furosemide 80 mg 10/25/16 06:00 10/26/16 15:15 Lasix - PO 80 mg BID@0600,1400 [facility] Administration Heparin Sodium (Porcine) 5,000 unit 10/24/16 22:00 10/26/16 23:53 Heparin - SQ Not Given TID [facility] Cefazolin Sodium/Dextrose 50 mls @ 100 mls/hr 10/25/16 02:00 10/27/16 01:30 Ancef 2 Gm Premixed Ivpb - IVPB 100 mls/hr Q8H-IV [facility] Administration Insulin Aspart 1 vial 10/25/16 07:00 10/26/16 17:55 Novolog Vial Sliding Scale - SQ Not Given TIDAC [facility] Protocol Levothyroxine Sodium 75 mcg 10/25/16 07:00 10/26/16 06:20 Synthroid - PO 75 mcg DAILY@0700 [facility] Administration Lisinopril 5 mg 10/25/16 10:00 10/26/16 11:19 Prinivil PO 5 mg DAILY [facility] Administration Metoclopramide HCl 10 mg 10/24/16 19:19 Reglan Injection - IVPUSH Q6H PRN NAUSEA AND/OR VOMITING Metoprolol Succinate 100 mg 10/25/16 10:00 10/26/16 11:19 Toprol Xl - PO 100 mg DAILY [facility] Administration Nicotine 21 mg 10/25/16 10:00 10/26/16 11:20 Nicoderm Patch - TD 21 mg DAILY [facility] Administration Spironolactone 50 mg 10/25/16 10:00 10/26/16 11:19 Aldactone - PO 50 mg DAILY [facility] Administration ASSESSMENT/PLAN: Problem List - Problems (1) LIANNA (acute kidney injury) Code(s): N17.9 - ACUTE KIDNEY FAILURE, UNSPECIFIED (2) Abdominal pain Code(s): R10.9 - UNSPECIFIED ABDOMINAL PAIN (3) CHF (congestive heart failure) Code(s): I50.9 - HEART FAILURE, UNSPECIFIED (4) Elevated liver function tests Code(s): R94.5 - ABNORMAL RESULTS OF LIVER FUNCTION STUDIES (5) Noncompliance with medication regimen Code(s): Z91.14 - PATIENT'S OTHER NONCOMPLIANCE WITH MEDICATION REGIMEN
[2016-10-27] MEDS ORDERED: PT OWN MED DRAWER 7, Y5N ONE (10:31)
[2016-10-27] MEDS: HEPARIN NA (PORCINE) 5,000 UNITS/ML 1ML VIAL SQ SCH ×2 (10:45→16:20)
[2016-10-27] MEDS: INSULIN SLIDING SCALE (NOVOLOG) 1 VIAL SQ SCH ×3 (10:46→17:26)
[2016-10-27] MEDS: FUROSEMIDE 40 MG TABLET (FP) PO SCH ×2 (10:46→16:20)
[2016-10-27] MEDS: LEVOTHYROXINE NA 75 MCG TABLET (FP) PO SCH (10:46)
[2016-10-27] MEDS: CLOPIDOGREL BISULFATE 75 MG TABLET (FP) PO SCH (10:47)
[2016-10-27] MEDS: DULoxetine HCL 20 MG CAPSULE.DR (FP) PO SCH (10:47)
[2016-10-27] MEDS: LISINOPRIL 5 MG TABLET (FP) PO SCH (10:47)
[2016-10-27] MEDS: METOPROLOL SUCCINATE 100 MG TAB.SR.24H (FP) PO SCH (10:47)
[2016-10-27] MEDS: SPIRONOLACTONE 25 MG TABLET (FP) PO SCH (10:48)
[2016-10-27] MEDS: NICOTINE 21 MG/24 HOURS TOPICAL PATCH TD SCH (10:50)
[2016-10-27 12:30] VITALS: BP 101/61; PULSE 80; TEMP 98.4
--- NOTE | 2016-10-27 16:09 | DS ---
Physical Exam: SUBJECTIVE: Patient seen and examined at bed side this morning. Patient said she wants to go home. Explained to the patient about the risks of leaving but she signed AMA. OBJECTIVE: Vital Signs Period Temp Pulse Resp BP Sys/Santoro Pulse Ox Last 24 Hr 98.0 F-98.4 F 73-80 18-24 101-108/61-68 96-97 PHYSICAL EXAM GENERAL: AA female,sitting in bed comfortably, Awake, alert, and fully oriented , in no acute distress. HEAD: Normal with no signs of trauma. EYES: EOM intact, no pallor or icterus. EARS, NOSE, THROAT: Ears normal. Moist mucous membranes. NECK: Normal range of motion, supple without lymphadenopathy, or masses. No JVD LUNGS: B/L equal air entry, decreased breath sounds at the b/l bases-improved. No crackles. No wheezes. No accessory muscle use. HEART: Regular rate and rhythm, normal S1 and S2 with pansystolic murmur. ABDOMEN: Ventral hernia, Soft, tenderness around the umbilical area, distended, edematous- improved, normoactive bowel sounds, no guarding, no rebound, no masses. No hepatomegaly or splenomegaly. MUSCULOSKELETAL: Normal range of motion at all joints. No bony deformities or tenderness. No CVA tenderness. UPPER EXTREMITIES: 2+ pulses, warm, well-perfused. No cyanosis. No clubbing. No peripheral edema. LOWER EXTREMITIES: 2+ pulses, warm, well-perfused. No calf tenderness. peripheral edema 1+ upto the mid calf, no tenderness. NEUROLOGICAL: Cranial nerves II-XII intact. Normal speech. Gait not observed PSYCHIATRIC: Cooperative. Good eye contact. Appropriate mood and affect. SKIN: Warm, dry, normal turgor, no rashes or lesions noted, normal capillary refill. LABS Laboratory Results - last 24 hr 10/27/16 10/27/16 10/27/16 06:30 06:30 12:36 WBC 8.5 RBC 4.30 Hgb 11.5 Hct 35.0 MCV 81.6 MCHC 32.7 RDW 23.6 H Plt Count 276 MPV 7.9 Sodium 137 Potassium 3.7 Chloride 96 L Carbon Dioxide 34 H Anion Gap 7 L BUN 12 Creatinine 0.7 D POC Glucometer 140 Random Glucose 75 Calcium 8.5 HOSPITAL COURSE: Date of Admission:10/11/16 Date of Discharge: 10/27/16 left against medical advice Patient is a 61 year old female frequent flyer and non complaint patient with chronic abdominal pain (thought to be due to liver cirrhosis/biliary tree strictures s/p lap naomi for acalcalous cholecystitis 05/05), hyperbilirubinemia , HTN, HLD, DM, CAD s/p ND 2003, CABG in 2003 s/p stents2, Systolic CHF s/p ICD /Pacemaker, COPD, current smoker, hypothyroid & peripheral neuropathy presented to the ED with the chief complaint of worsening shortness of breath. Admitted with the diagnosis of Bacteremia (Group B Strep). Patient was treated with IV Cefazolin, completed 10 days of IV antibiotics.Refused PICC line placement and didn't want to go to a rehab or stay at the hospital to complete the course of antibiotics. She left against medical advise. Patient was recommended to take Amoxicillin PO 500mg TID x 18 more days. Recommended to follow up with her PCP in a week. Acute on chronic systolic CHF- Resolving. Admitted in Telemetry. Continuous Cardiac monitoring. Treated with IV lasix 80mg BID and to continue PO Lasix 80mg BID. On admission patient weighed 185 lbs which decreased to 151lbs. Patient said her pacemaker was interrogated last month, next scheduled in November,. Hypokalmia/Hypomagnesemia-Resolved LIANNA likely prerenal -Resolved Hypertension- Stable. Metoprolol Succinate 100 mg PO DAILY; Lisinopril 5mg PO daily Hyperlipidemia-Continue Lipitor 20mg PO HS DM-HbA1c on 08/04- 6.6 CAD s/p ND 2003, CABG in 2003 s/p stents2. Continue Plavix 75mg po daily COPD: Not in exacerbation Hypothyroidism .TSH-0.25 08/23/16. Continue Synthoid 75 mcg po daily Chronic Elevated liver enzymes with Hyperbilirubinemia (in baseline now)- likely due to hepatic congestion secondary to CHF. Has done work up in the past. Called placed to Dr. San ([phone]) to get past records who mentioned there were no further investigations to suggest at this time as bilirubin has been chronically elevated Illness, Investigation and Plan of care explained to the patient. Patient decided to leave against medical advice. Explained to the patient the consequences of leaving the hospital against medical advice, including . Patient insisted on signing out, she was evaluated and had capacity to make medical decision, she was alert oriented x 3. She verbalized understanding, signed AMA. Case discussed with Dr. Villegas. Minutes to complete discharge: 45 Discharge Summary Reason For Visit: CONGESTIVE HEART FAILURE Current Active Problems LIANNA (acute kidney injury) (Acute) Bacteremia (Acute) Sepsis (Acute) Abdominal pain (Chronic) Abdominal pain, diffuse (Chronic) Acute combined systolic and diastolic ACC/AHA stage C congestive heart failure ( Chronic) Acute on chronic systolic and diastolic heart failure, NYHA class 1 (Chronic) CHF (congestive heart failure) (Chronic) Dyspepsia (Chronic) Elevated liver function tests (Chronic) Hyperbilirubinemia (Chronic) Hyperlipidemia (Chronic) Hypertension (Chronic) NSVT (nonsustained ventricular tachycardia) (Chronic) Noncompliance with medication regimen (Chronic) Peripheral neuropathy (Chronic) Restless leg syndrome (Chronic) Sleep apnea (Chronic) Sphincter of Oddi dysfunction (Chronic) Status post THR (total hip replacement) (Chronic) Transaminitis (Chronic) - Instructions Diet, Activity, Other Instructions: You were admitted for the evaluation of sepsis and congestive heart failure exacerbation. You were being treated with IV antibiotics which had to be completed for 14 days of IV and 14 days to PO antibiotics. Please understand that you are leaving today against medical advise. Since you didn't get the full course of IV antibiotics, The infection might worsen which will prolong the course of illness, might lead to infection in the heart and cause even . We advised you to stay at the hospital and get the treatment but you decided to leave. Please take Amoxicillin 500mg three times a day for 18 more days. Referrals: Ashley Rueda MD [Primary Care Provider] - Disposition: AGAINST MEDICAL ADVICE - Home Medications Comprehensive Discharge Medication List: Ambulatory Orders Calamine 8% Topical Lotion - 1 applic TP BID PRN #0 bottle 08/04/16 Clopidogrel Bisulfate [Plavix -] 75 mg PO DAILY #30 tablet 08/04/16 Levothyroxine [Synthroid -] 75 mcg PO DAILY #30 tab 08/04/16 Mineral Oil/Petrolat,Wht/Water [Eucerin (Large Jar) -] 1 applic TP DAILY PRN #0 jar 08/04/16 Spironolactone 50 mg PO DAILY #30 tablet 08/04/16 Furosemide [Lasix -] 80 mg PO BID #60 tablet 08/27/16 Metoprolol Succinate [Toprol Xl] 100 mg PO DAILY #30 tab.er.24h 08/27/16 Potassium Chloride 20 meq PO DAILY #30 tab 08/27/16 Atorvastatin Ca [Lipitor] 20 mg PO HS 09/08/16 Lisinopril [Prinivil] 5 mg PO DAILY #30 tablet 09/14/16 Amoxicillin - [Amoxicillin 500mg Capsule -] 500 mg PO TID #54 capsule 10/27/16 Problem List - Problems (1) LIANNA (acute kidney injury) Code(s): N17.9 - ACUTE KIDNEY FAILURE, UNSPECIFIED (2) Abdominal pain Code(s): R10.9 - UNSPECIFIED ABDOMINAL PAIN (3) CHF (congestive heart failure) Code(s): I50.9 - HEART FAILURE, UNSPECIFIED (4) Elevated liver function tests Code(s): R94.5 - ABNORMAL RESULTS OF LIVER FUNCTION STUDIES (5) Noncompliance with medication regimen Code(s): Z91.14 - PATIENT'S OTHER NONCOMPLIANCE WITH MEDICATION REGIMEN This patient is new to me today: No Emergency Visit: Yes ED Registration Date: 10/11/16 Care time: The patient presented to the Emergency Department on the above date and was hospitalized for further evaluation of their emergent condition. Critical Care patient: No - Discharge Referral Referred to [facility] Med P.C.: No
--- NOTE | 2016-10-27 17:06 | PN ---
Teaching Attending Note Name of Resident: Caty Jarrett ATTENDING PHYSICIAN STATEMENT I saw and evaluated the patient. I reviewed the resident's note and discussed the case with the resident. I agree with the resident's findings and plan as documented. SUBJECTIVE: Patient is feeling better so decided to sign Against medical advice. OBJECTIVE: Vital Signs Temperature 98.4 F 10/27/16 10:00 Pulse Rate 80 10/27/16 10:00 Respiratory Rate 24 10/27/16 10:00 Blood Pressure 101/61 10/27/16 10:00 O2 Sat by Pulse Oximetry (%) 96 10/27/16 10:00 CBCD WBC 8.5 K/mm3 (4.0-10.0) 10/27/16 06:30 RBC 4.30 M/mm3 (3.60-5.2) 10/27/16 06:30 Hgb 11.5 GM/dL (10.7-15.3) 10/27/16 06:30 Hct 35.0 % (32.4-45.2) 10/27/16 06:30 MCV 81.6 fl (80-96) 10/27/16 06:30 MCHC 32.7 g/dl (32.0-36.0) 10/27/16 06:30 RDW 23.6 % (11.6-15.6) H 10/27/16 06:30 Plt Count 276 K/MM3 (134-434) 10/27/16 06:30 MPV 7.9 fl (7.5-11.1) 10/27/16 06:30 CMP Sodium 137 mmol/L (136-145) 10/27/16 06:30 Potassium 3.7 mmol/L (3.5-5.1) 10/27/16 06:30 Chloride 96 mmol/L (98-107) L 10/27/16 06:30 Carbon Dioxide 34 mmol/L (21-32) H 10/27/16 06:30 Anion Gap 7 (8-16) L 10/27/16 06:30 BUN 12 mg/dL (7-18) 10/27/16 06:30 Creatinine 0.7 mg/dL (0.55-1.02) D 10/27/16 06:30 Creat Clearance w eGFR > 60 (>60) 10/19/16 06:00 Random Glucose 75 mg/dL (74-106) 10/27/16 06:30 Calcium 8.5 mg/dL (8.5-10.1) 10/27/16 06:30 Total Bilirubin 3.8 mg/dL (0.2-1.0) H D 10/22/16 05:35 AST 20 U/L (15-37) D 10/22/16 05:35 ALT 8 U/L (12-78) L D 10/22/16 05:35 Alkaline Phosphatase 163 U/L (45-117) H 10/22/16 05:35 Total Protein 5.8 g/dl (6.4-8.2) L 10/22/16 05:35 Albumin 2.1 g/dl (3.4-5.0) L 10/22/16 05:35 CARDIAC ENZYMES Creatine Kinase 138 IU/L (26-192) 10/12/16 05:35 Troponin I 0.11 ng/ml (0.00-0.05) H 10/13/16 17:30 PE: per resident's notes ASSESSMENT AND PLAN: Patient is a 61 year old female, with a significant past medical history of hypertension, hypercholesterolemia, CAD, SC(X2, s/pp defibrillator/pacemaker and CABG), CHF, DM II, kidney stones , peripheral neuropathy, hypothyroidism, CCY , chronic transaminitis , and non compliance presented with abd pain and SOB , was found to have Acute Systolic CHF exacerbation and bacteremia # Acute on chronic systolic CHF: patient was prescribed 80mh po lasix bid . # Gram+ Bacteremia: on IV antibiotic since signing against medical advice ,will give her po antibiotic as per ID ;amoxicillin 500mg po tid x 18 days since signing against medical advice. Risks were told to the patient , still wants to sign against medical advice. no ANGY needed as per card . # Chronic trop leak, at base line ,cont BB, cont statin # LFTS abnormality: chronic . Now back to base line , records from liver specialist obtained and in chart # s/p hypoglycemia : resolved Patient signed against medical advice, given RX for amoxicillin for 18 days since didn't finish IV antibitoics.
--- NOTE | 2016-10-28 04:47 | PN ---
Progress Note, Physician Chief Complaint: Pt denies chest pain or dyspnea.Wants to go home, and says she will do so whether or not her doctors want her to. History of Present Illness: The patient is a 61 year old black female, with a significant past medical history of hypertension, hyperlipidemia, Dm, CAD s/p defibrillator/pacemaker s/ p CABG, AR, severe systolic CHF, hypothyroidism, kidney stones, peripheral neuropathy, anxiety/depression, who presents to the emergency department from the office of Dr. San at the liver transplant center at [facility], a week after being discharged (ED visit on 10/04/16) for worsening shortness of breath and lower extremity edema today. The patient reports exertional SOB. She states she can walk for a few minutes, but states she has to sit and rest secondary to her dyspnea. She states her lower extremities are more swollen today, but admits to taking her medications today. She also reports diffuse abdominal discomfort today. She states she recently changed her PMD, but denies having made an appointment to meet the new PMD, Dr. Rueda. As per discharge summary from Dr. San, the patient was being seen for hepatomegaly to evaluate for autoimmune hepatitis. The patient is not currently on medication for her liver. She denies chest pain, headache and dizziness. She denies fever, chills, nausea , vomit, diarrhea and constipation. She denies dysuria, frequency, urgency and hematuria. Allergies: aspirin Past surgical history: PEG tube placement, Stents x2, CABG (2003), ICD/ Pacemaker (November), cholecystectomy (April 2016) Social history: current everyday tobacco use (3 cigarettes daily). Denies alcohol or drug use PCP - Dr. Parrish Ferrer/ Dr. Rueda Freight Broker Agent - Dr. Dick Cage - Objective Vital Signs: Vital Signs Temperature 98.4 F 10/27/16 10:00 Pulse Rate 80 10/27/16 10:00 Respiratory Rate 24 10/27/16 10:00 Blood Pressure 101/61 10/27/16 10:00 O2 Sat by Pulse Oximetry (%) 96 10/27/16 10:00 Constitutional: Yes: Anxious, Moderate Distress Eyes: Yes: WNL HENT: Yes: WNL Neck: Yes: WNL Cardiovascular: Yes: Regular Rate and Rhythm Respiratory: Yes: Regular Gastrointestinal: Yes: Soft ...Rectal Exam: Yes: Deferred Genitourinary: No: Anuria Musculoskeletal: Yes: Muscle Weakness Extremities: Yes: Cool Edema: No Peripheral Pulses WNL: No Peripheral Pulses: Left Doralis Pedis: 1+, Right Dorsalis Pedis: 1+ Integumentary: Yes: WNL Neurological: Yes: Alert, Oriented, Weakness Psychiatric: Yes: Agitated Labs: CBC, BMP 10/27/16 06:30 10/27/16 06:30 Abnormal Lab Results 10/27/16 10/27/16 06:30 06:30 RDW 23.6 H Chloride 96 L Carbon Dioxide 34 H Anion Gap 7 L Problem List - Problems (1) Dyspepsia Code(s): K30 - FUNCTIONAL DYSPEPSIA (2) Hyperbilirubinemia Code(s): E80.6 - OTHER DISORDERS OF BILIRUBIN METABOLISM (3) Hyperlipidemia Assessment/Plan: total cholesterol 86 mg/dL On atorvastatin 20 mg daily. Code(s): E78.5 - HYPERLIPIDEMIA, UNSPECIFIED (4) Hypertension Assessment/Plan: Continue present medications (on multiple medications for both severe systolic CHF and HTN: see "CHF"). Code(s): I10 - ESSENTIAL (PRIMARY) HYPERTENSION (5) Peripheral neuropathy Code(s): G62.9 - POLYNEUROPATHY, UNSPECIFIED (6) Status post THR (total hip replacement) Code(s): Z96.649 - PRESENCE OF UNSPECIFIED ARTIFICIAL HIP JOINT (7) Hypokalemia Assessment/Plan: Repleted K, MG, and PO4; f/u serially, especially while on furosemide, aldactone. Code(s): E87.6 - HYPOKALEMIA (8) Lower extremity edema Code(s): R60.0 - LOCALIZED EDEMA (9) Cigarette nicotine dependence Assessment/Plan: Pt continues to say she smokes only a few cigarettes a day, though her daughter says she smokes much more. Continue nicotine patch. Code(s): F17.210 - NICOTINE DEPENDENCE, CIGARETTES, UNCOMPLICATED (10) Coronary artery disease Assessment/Plan: Diet, exercise, medications, and smoking cessation to aid in preventing further need for PCI and to avoid cardiac events. Code(s): I25.10 - ATHSCL HEART DISEASE OF [place] CORONARY ARTERY W/O ANG PCTRS (11) Depression Code(s): F32.9 - MAJOR DEPRESSIVE DISORDER, SINGLE EPISODE, UNSPECIFIED (12) Diabetes Code(s): E11.9 - TYPE 2 DIABETES MELLITUS WITHOUT COMPLICATIONS Qualifiers: Qualified Code(s): E11.8 - Type 2 diabetes mellitus with unspecified complications; Z79.4 - termination clerk (current) use of insulin (13) Hypothyroidism Assessment/Plan: Mildly reduced TSH and free T4; mildly elevated free T3. Code(s): E03.9 - HYPOTHYROIDISM, UNSPECIFIED (14) ICD (implantable cardioverter-defibrillator) in place Assessment/Plan: recently interrogated; occasional episodes of NSVT. Code(s): Z95.810 - PRESENCE OF AUTOMATIC (IMPLANTABLE) CARDIAC DEFIBRILLATOR (15) Acute on chronic systolic and diastolic heart failure, NYHA class 1 Assessment/Plan: on metoprolol, aldactone, lisinopril, PO furosemide (on 80 mg bid). f/u BUN/Cr , Is and Os, electrolytes, daily weight. Code(s): I50.43 - ACUTE ON CHRONIC COMBINED SYSTOLIC AND DIASTOLIC HRT FAIL (16) NSVT (nonsustained ventricular tachycardia) Assessment/Plan: Continue metoprolol, lisinopril, spironolactone, and furosemide. Maintain electrolytes WNL. Code(s): I47.2 - VENTRICULAR TACHYCARDIA (17) Sleep apnea Assessment/Plan: Pt sleeps fitfully at night, then seeps hours during the day. Recommend sleep studies to r/o sleep apnea. Code(s): G47.30 - SLEEP APNEA, UNSPECIFIED (18) Bacteremia Assessment/Plan: Pt is on IV antibiotics; f/u blood cultures (negative as of 10/18/2016). WBC, elevated 10/19/16, are now WNL. Pt wants to go home; the need to continue IV antibiotics was discussed, but she is frustrated and adamant. Code(s): R78.81 - BACTEREMIA
== END 2016-10-27 16:45 | disposition left against medical advice (07) | DRG 291 ==
LOC: JER 15:19 → JERBED 20:54 → J4W 23:24 → J8W 10-24 15:16
PROVIDERS: ADMIT Internal Medicine; ATTEND Internal Medicine
DX: I11.0 Hypertensive heart disease with heart failure (principal); A40.8 Other streptococcal sepsis; I24.8 Other forms of acute ischemic heart disease; I47.2 Ventricular tachycardia; N17.9 Acute kidney failure, unspecified; E78.5 Hyperlipidemia, unspecified; I25.10 Atherosclerotic heart disease of native coronary artery without angina pectoris; E03.9 Hypothyroidism, unspecified; I25.2 Old myocardial infarction; F17.200 Nicotine dependence, unspecified, uncomplicated; J45.909 Unspecified asthma, uncomplicated; J44.9 Chronic obstructive pulmonary disease, unspecified; K75.4 Autoimmune hepatitis; E87.6 Hypokalemia; F41.8 Other specified anxiety disorders; M19.90 Unspecified osteoarthritis, unspecified site; I27.2 Other secondary pulmonary hypertension; E80.6 Other disorders of bilirubin metabolism; I50.43 Acute on chronic combined systolic (congestive) and diastolic (congestive) heart failure; K57.90 Diverticulosis of intestine, part unspecified, without perforation or abscess without bleeding; E83.42 Hypomagnesemia; K76.1 Chronic passive congestion of liver; M54.5 Low back pain; E11.42 Type 2 diabetes mellitus with diabetic polyneuropathy; G47.30 Sleep apnea, unspecified; K30 Functional dyspepsia; R10.9 Unspecified abdominal pain; E83.39 Other disorders of phosphorus metabolism; G89.18 Other acute postprocedural pain; G25.81 Restless legs syndrome; Z91.14 Patient's other noncompliance with medication regimen; Z96.641 Presence of right artificial hip joint; Z95.5 Presence of coronary angioplasty implant and graft; Z95.1 Presence of aortocoronary bypass graft; Z95.810 Presence of automatic (implantable) cardiac defibrillator; Z87.442 Personal history of urinary calculi; Z86.718 Personal history of other venous thrombosis and embolism; Z79.4 Long term (current) use of insulin
CPT/HCPCS: 36415; 36600; 71010-TC; 74176-TC; 76705-TC; 80048; 80053; 80061; 80076; 81003; 81015; 82248; 82550; 82553; 82803; 82977; 83516; 83605; 83690; 83721; 83735; 83880; 84100; 84439; 84481; 84484; 85025; 85027; 85651; 86140; 87040; 87086; 87186; 93005; 93010; 93306-TC; 94640; 99285-25; G0480; J1644

== ENCOUNTER 2016-11-19 09:09 | Inpatient (IN) | payer OTHER, BC ==
--- NOTE | 2016-11-19 09:25 | PDOC ---
History of Present Illness - General History Source: Patient Exam Limitations: No Limitations - History of Present Illness Initial Comments: 11/19/16 10:42 The patient is a 61 year old female with past medical history of hypertension, hyperlipidemia, diabetes mellitus, CAD s/p defibrillator/ pacemaker, CABG, PA, CHF, hypothyroidism who presents to the ED with complaints of of abdominal pain for the past three days. The patient states that the pain radiates to her chest. The patient also reports mild shortness of breath with exertion as well as bilateral lower extremity edema and generalized pain "all over her body", which she says is normal for her. Last month the patient was admitted for abdominal pain and was being evaluated for autoimmune hepatitis. While admitted , the patient was found to have Group B strep bacteremia. The patient signed out AMA and was discharged on a course of antibiotics. In the ED, the patient states she recently finished her course of antibiotics. She reports she does not know any of her medications and implies overall noncompliance. Social Hx: Cigarette smoker +40 years <Mariama Carrasquillo - Last Filed: 11/19/16 17:37> <Eder Saxena - Last Filed: 11/19/16 18:56> - General Stated Complaint: CHEST PAIN Time Seen by Provider: 11/19/16 09:24 Past History <Mariama Carrasquillo - Last Filed: 11/19/16 17:37> - Past Medical History Anemia: No Asthma: Yes Cancer: No Cardiac Disorders: Yes (Stents, PM/Defib, STEMI) CVA: No COPD: No CHF: Yes Dementia: No Diabetes: Yes GI Disorders: Yes Disorders: No HTN: Yes Hypercholesterolemia: Yes Liver Disease: Yes Psychiatric Problems: Yes (depression.) Suicide Attempt (Hx): No Seizures: No Thyroid Disease: Yes (Hypo) - Surgical History Abdominal Surgery: Yes (hx of peg tube.) Appendectomy: No Cardiac Surgery: Yes (bypass,stent x2, CABG 2003, ICD/Pacer 12/02) Cholecystectomy: Yes (04/2016) Lung Surgery: (cabg 2003) Neurologic Surgery: No Orthopedic Surgery: Yes (Right THR) - Immunization History Immunization Up to Date: Yes - Psycho/Social/Smoking Cessation Hx Anxiety: No Suicidal Ideation: No Smoking Status: No Smoking History: Current some day smoker Have you smoked in the past 12 months: Yes Number of Cigarettes Smoked Daily: 5 'Breaking Loose' booklet given: 10/12/16 Hx Alcohol Use: No Drug/Substance Use Hx: No Substance Use Type: None Hx Substance Use Treatment: No <Eder Saxena - Last Filed: 11/19/16 18:56> - Past Medical History Allergies/Adverse Reactions: Allergies Allergy/AdvReac Type Severity Reaction Status Date / Time aspirin Allergy Mild Rash Verified 11/19/16 09:32 banana Allergy Hives Verified 11/19/16 09:32 tomato Allergy Verified 11/19/16 09:32 Home Medications: Ambulatory Orders Calamine 8% Topical Lotion - 1 applic TP BID PRN #0 bottle 08/04/16 Clopidogrel Bisulfate [Plavix -] 75 mg PO DAILY #30 tablet 08/04/16 Levothyroxine [Synthroid -] 75 mcg PO DAILY #30 tab 08/04/16 Mineral Oil/Petrolat,Wht/Water [Eucerin (Large Jar) -] 1 applic TP DAILY PRN #0 jar 08/04/16 Spironolactone 50 mg PO DAILY #30 tablet 08/04/16 Furosemide [Lasix -] 80 mg PO BID #60 tablet 08/27/16 Metoprolol Succinate [Toprol Xl] 100 mg PO DAILY #30 tab.er.24h 08/27/16 Potassium Chloride 20 meq PO DAILY #30 tab 08/27/16 Atorvastatin Ca [Lipitor] 20 mg PO HS 09/08/16 Lisinopril [Prinivil] 5 mg PO DAILY #30 tablet 09/14/16 Review of Systems - Review of Systems Able to Perform ROS?: Yes Comments:: 11/19/16 10:42 GENERAL/CONSTITUTIONAL: No fever or chills. No weakness. HEAD, EYES, EARS, NOSE AND THROAT: No change in vision. No ear pain or discharge. No sore throat. CARDIOVASCULAR: Present: chest pain, shortness of breath RESPIRATORY: No cough, wheezing, or hemoptysis. GASTROINTESTINAL: Present: abdominal pain No nausea, vomiting, diarrhea or constipation. GENITOURINARY: No dysuria, frequency, or change in urination. MUSCULOSKELETAL: No joint or muscle swelling or pain. No neck or back pain. SKIN: No rash NEUROLOGIC: No headache, vertigo, loss of consciousness, or change in strength/ sensation. ENDOCRINE: No increased thirst. No abnormal weight change. HEMATOLOGIC/LYMPHATIC: No anemia, easy bleeding, or history of blood clots. ALLERGIC/IMMUNOLOGIC: No hives or skin allergy. All Other Systems: Reviewed and Negative <Mariama Carrasquillo - Last Filed: 11/19/16 17:37> *Physical Exam - Vital Signs Last Vital Signs Temp Pulse Resp BP Pulse Ox 97.6 F 92 H 22 127/85 100 11/19/16 09:25 11/19/16 10:32 11/19/16 10:32 11/19/16 10:32 11/19/16 10:32 - Physical Exam Comments: 11/19/16 10:44 GENERAL: Awake, alert, and fully oriented, in no acute distress HEAD: No signs of trauma EYES: PERRLA, EOMI, sclera anicteric, conjunctiva clear ENT: Auricles normal inspection, hearing grossly normal, nares patent, oropharynx clear without exudates. Moist mucosa NECK: Normal ROM, supple, no lymphadenopathy, JVD, or masses LUNGS: Shallow respirations, hyperventilating. No wheezes, and no crackles HEART: Regular rate and rhythm, normal S1 and S2, no murmurs, rubs or gallops ABDOMEN: Soft, nontender, normoactive bowel sounds. No guarding, no rebound. No masses EXTREMITIES: Bilateral lower extremity edema, right greater than left. No clubbing or cyanosis. No cords, erythema, or tenderness NEUROLOGICAL: Cranial nerves II through XII grossly intact. Normal speech. SKIN: Warm, Dry, normal turgor, no rashes or lesions noted. <Mariama Carrasquillo - Last Filed: 11/19/16 17:37> Heart Score/ECG Review - ECG Intrepretation Comment:: 11/19/16 10:44 ECG obtained at 09:16 Normal sinus at 89 bpm nonspecific intraventricular block nonspecific T wave abnormality No change from ECG on 10/11/16 <Mariama Carrasquillo - Last Filed: 11/19/16 17:37> ED Treatment Course - LABORATORY CBC & Chemistry Diagram: 11/19/16 10:10 11/19/16 10:10 - ADDITIONAL ORDERS Additional order review: Laboratory Results 11/19/16 11/19/16 10:10 10:00 INR 2.21 H Puncture Site Right brachial ABG pH 7.46 H ABG pCO2 at Pt Temp 34.0 L D ABG pO2 at Pt Temp 79.9 L D ABG HCO3 23.6 ABG O2 Sat (Measured) 96.0 ABG O2 Content 15.7 ABG Base Excess 0.6 Eduar Test Positive Carboxyhemoglobin 2.9 H Methemoglobin 0.5 Oxygen Flow Rate No PEEP 0.0 11/19/16 10:10 RBC 4.48 MCV 84.3 MCHC 32.3 RDW 22.9 H MPV 8.1 Neutrophils % 67.3 Lymphocytes % 18.6 Monocytes % 13.4 H D Eosinophils % 0.0 Basophils % 0.7 - RADIOLOGY Radiograph Interpretation: 11/19/16 10:46 CXR as reviewed by Dr. Gonzales reports large heart, sternal sutures, and prominent hilar markings. Increased density in the retrocardic area 11/19/16 12:29 Vascular study of bilateral lower extremities reviewed by Dr. Guajardo reports no evidence of DVT - Medications Given in the ED: ED Medications Discontinued Medications Generic Name Dose Route Start Last Admin Trade Name [place] PRN Reason Stop Dose Admin Lorazepam 1 mg 11/19/16 09:53 11/19/16 09:59 Ativan - PO 11/19/16 09:54 1 mg ONCE ONE Administration Morphine Sulfate 4 mg 11/19/16 09:53 11/19/16 10:21 Morphine Injection - IVPUSH 11/19/16 09:54 4 mg ONCE ONE Administration Ondansetron HCl 8 mg 11/19/16 09:53 11/19/16 10:21 Zofran Injection IVPB 11/19/16 09:54 8 mg ONCE ONE Administration <Mariama Carrasquillo - Last Filed: 11/19/16 17:37> - LABORATORY CBC & Chemistry Diagram: 11/19/16 10:10 11/19/16 10:10 <Eder Saxena - Last Filed: 11/19/16 18:56> Medical Decision Making - Medical Decision Making 11/19/16 17:38 Microblog sent to hospitalist, call returned and case was discussed. Patient will be admitted. <Mariama Carrasquillo - Last Filed: 11/19/16 17:37> *DC/Admit/Observation/Transfer - Attestations Scribe Attestion: 11/19/16 17:39 Documentation prepared by Mariama Carrasquillo, acting as medical unit secretary for Eder Saxena DO. <Mariama Carrasquillo - Last Filed: 11/19/16 17:37> - Discharge Dispostion Admit: Yes - Attestations Physician Attestion: 11/19/16 09:24 I, Dr. Eder Saxena, attest that this document has been prepared under my direction and personally reviewed by me in its entirety. I further attest, that it accurately reflects all work, treatment, procedures and medical decision -making performed by me. <Eder Saxena - Last Filed: 11/19/16 18:56> Diagnosis at time of Disposition: Chest pain of uncertain etiology, Noncompliance with medication regimen, Elevated troponin, Acute combined systolic and diastolic ACC/AHA stage C congestive heart failure CHF exacerbation Qualifiers: Congestive heart failure type: combined Qualified Code(s): I50.43 - Acute on chronic combined systolic (congestive) and diastolic (congestive) heart failure Peripheral neuropathy Qualifiers: Peripheral neuropathy type: polyneuropathy, unspecified Qualified Code(s): G62.9 - Polyneuropathy, unspecified Chest pain Qualifiers: Chest pain type: unspecified Qualified Code(s): R07.9 - Chest pain, unspecified - Discharge Dispostion Condition at time of disposition: Improved - Referrals Referrals: Ashley Rueda MD [Primary Care Provider] -
[2016-11-19 09:34] VITALS: BMI 26.5
[2016-11-19] MEDS ORDERED: ONDANSETRON 4 MG/2 ML VIAL IVPB ONE (09:53)
[2016-11-19] MEDS ORDERED: morphine CARPU-JECT 4 MG/1 ML DISP.SYRIN IVPUSH ONE (09:53)
[2016-11-19] MEDS ORDERED: LORazepam 1 MG TABLET PO ONE (09:53)
[2016-11-19] MEDS ORDERED: LORazepam 0.5 MG TABLET ONE (09:56)
[2016-11-19 10:03] LABS: ARTERIAL BLOOD GAS BASE EXCESS 0.6 meq/l (-2-2); ARTERIAL BLOOD GAS HCO3 23.6 meq/L (22-26); ARTERIAL BLOOD GAS PO2 79.9 mmHg (80-100); ARTERIAL BLOOD GAS pH 7.46 (7.35-7.45)
[2016-11-19 10:05] LABS: METHEMOGLOBIN 0.5 % (0.4-1.5)
[2016-11-19 10:06] LABS: ALLENS TEST POSITIVE; ART PUNCT SITE RIGHT BRACHIAL; PT. ON O2? NO
[2016-11-19] MEDS ORDERED: morphine CARPU-JECT 4 MG/1 ML DISP.SYRIN ONE (10:11)
[2016-11-19] MEDS ORDERED: ONDANSETRON 4 MG/2 ML VIAL ONE (10:12)
[2016-11-19 10:25] LABS: BASOPHIL 0.7 % (0-2.0); MCH 27.3 pg (25.7-33.7); MCHC 32.3 g/dl (32.0-36.0); MEAN CELL VOLUME 84.3 fl (80-96); MEAN PLT VOLUME 8.1 fl (7.5-11.1); NEUTROPHILS 67.3 % (42.8-82.8); PLATELET COUNT 179 K/MM3 (134-434); RDW 22.9 % (11.6-15.6); WHITE BLOOD COUNT 6.7 K/mm3 (4.0-10.0)
[2016-11-19 10:37] LABS: INR 2.21 (0.82-1.09); PROTHROMBIN TIME (PATIENT) 24.7 SEC (9.98-11.88)
[2016-11-19 10:47] LABS: ALBUMIN 3.2 g/dl (3.4-5.0); ANION GAP 10 (8-16); BILIRUBIN,TOTAL 4.1 mg/dL (0.2-1.0); CALCIUM 9.2 mg/dL (8.5-10.1); CO2 25 mmol/L (21-32); CREATININE 0.8 mg/dL (0.55-1.02); GLUCOSE,RANDOM 81 mg/dL (74-106); SGPT/ALT 18 U/L (12-78)
[2016-11-19 10:51] LABS: ALK PHOS 158 U/L (45-117); TROPONIN I 0.09 ng/ml (0.00-0.05)
[2016-11-19 10:53] LABS: SGOT/AST 47 U/L (15-37)
[2016-11-19 11:10] LABS: ANISOCYTOSIS 2+; HYPOCHROMIA 1+
[2016-11-19 11:11] LABS: ACANTHOCYTES 1+
[2016-11-19] MEDS ORDERED: FUROSEMIDE 40 MG/4 ML INJECTABLE VIAL IVPUSH ONE (14:33)
[2016-11-19] MEDS ORDERED: POTASSIUM CHLORIDE TABS 20 MEQ TABLET.ER (FP) PO ONE (14:33)
[2016-11-19] MEDS ORDERED: FUROSEMIDE 40 MG/4 ML INJECTABLE VIAL ONE (14:48)
[2016-11-19] MEDS ORDERED: POTASSIUM CHLORIDE ORAL LIQUID 20 MEQ/15 ML ONE (14:48)
[2016-11-19 17:16] LABS: TROPONIN I 0.08 ng/ml (0.00-0.05)
--- NOTE | 2016-11-19 17:23 | EKG ---
Test Reason : Blood Pressure : / mmHG Vent. Rate : 089 BPM Atrial Rate : 089 BPM P-R Int : 182 ms QRS Dur : 132 ms QT Int : 424 ms P-R-T Axes : 062 084 087 degrees QTc Int : 515 ms NORMAL SINUS RHYTHM NON-SPECIFIC INTRA-VENTRICULAR CONDUCTION BLOCK NONSPECIFIC T WAVE ABNORMALITY ABNORMAL ECG WHEN COMPARED WITH ECG OF 11-OCT-2016 15:57, PREMATURE VENTRICULAR COMPLEXES ARE NO LONGER PRESENT Confirmed by RILEY BLAIR MD ([id number]) on 11/19/2016 5:23:15 PM Referred By: Confirmed By:RILEY BLAIR MD
--- NOTE | 2016-11-19 17:32 | CON.CARD ---
Consult Consult Specialty:: Cardiology Reason for Consultation:: sob/cp - History of Present Illness History of Present Illness: The patient is a 61 year old female with past medical history of hypertension, hyperlipidemia, diabetes mellitus, CAD s/p defibrillator/ pacemaker, CABG, NH, CHF, hypothyroidism who presents to the ED with complaints of of abdominal pain for the past three days. The patient states that the pain radiates to her chest. The patient also reports mild shortness of breath with exertion as well as bilateral lower extremity edema and generalized pain "all over her body", which she says is normal for her. Last month the patient was admitted for abdominal pain and was being evaluated for autoimmune hepatitis. While admitted , the patient was found to have Group B strep bacteremia. The patient signed out AMA and was discharged on a course of antibiotics. In the ED, the patient states she recently finished her course of antibiotics. She reports she does not know any of her medications and implies overall noncompliance. - Past Medical History CRUSHER: Yes: Peripheral Neuropathy Cardio/Vascular: Yes: CAD (CABG 2003, stents x2, now with defibrillator), CHF, Deep Vein Thrombosis, HTN, Hyperlipdemia, [place] (NH in 2003), Mitral Insufficiency , Murmur, Pulmonary Hypertension, Other (profound biventricular failure, AICD device, CABG 2003, subsequent stents; cigarettes) Pulmonary: Yes: COPD Gastrointestinal: Yes: Diverticulosis, Other (Chronic abdominal pain and food intolerances. Had PEG placed 11/03 after suffering vocal cord damage ( EMS intubation). PEG was subsequently removed. ) Hepatobiliary: Yes: Cirrhosis (cardiac cirrhosis), Cholecystitis (s/p lap choly 05/05) Renal/: Yes: Renal Calculi Psych: Yes: Depression Musculoskeletal: Yes: Chronic low back pain, Osteoarthritis Endocrine: Yes: Hypothyroidism - Past Surgical History Past Surgical History: Yes: AICD, CABG, Cholecystectomy, Colonoscopy, Joint Replacement (right THR), Stent (X2) - Alcohol/Substance Use Hx Alcohol Use: No History of Substance Use: reports: None - Smoking History Smoking history: Current some day smoker Have you smoked in the past 12 months: Yes Aproximately how many cigarettes per day: 5 - Social History Usual Living Arrangement: Alone ADL: Independent 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 History of Recent Travel: No Home Medications - Allergies Allergies/Adverse Reactions: Allergies Allergy/AdvReac Type Severity Reaction Status Date / Time aspirin Allergy Mild Rash Verified 11/19/16 09:32 banana Allergy Hives Verified 11/19/16 09:32 tomato Allergy Verified 11/19/16 09:32 - Home Medications Home Medications: Ambulatory Orders Calamine 8% Topical Lotion - 1 applic TP BID PRN #0 bottle 08/04/16 Clopidogrel Bisulfate [Plavix -] 75 mg PO DAILY #30 tablet 08/04/16 Levothyroxine [Synthroid -] 75 mcg PO DAILY #30 tab 08/04/16 Mineral Oil/Petrolat,Wht/Water [Eucerin (Large Jar) -] 1 applic TP DAILY PRN #0 jar 08/04/16 Spironolactone 50 mg PO DAILY #30 tablet 08/04/16 Furosemide [Lasix -] 80 mg PO BID #60 tablet 08/27/16 Metoprolol Succinate [Toprol Xl] 100 mg PO DAILY #30 tab.er.24h 08/27/16 Potassium Chloride 20 meq PO DAILY #30 tab 08/27/16 Atorvastatin Ca [Lipitor] 20 mg PO HS 09/08/16 Lisinopril [Prinivil] 5 mg PO DAILY #30 tablet 09/14/16 Family Disease History - Family Disease History Family Disease History: Diabetes: Sister (s/p CABG in her 50s), Heart Disease: Father (had unknown cancer), Mother (lived to ), Sister, [place]: Father Review of Systems - Review of Systems Constitutional: reports: No Symptoms Eyes: reports: No Symptoms HENT: reports: No Symptoms Neck: reports: No Symptoms Cardiovascular: reports: Chest Pain, Edema, Shortness of Breath Gastrointestinal: reports: No Symptoms Genitourinary: reports: No Symptoms Breasts: reports: No Symptoms Reported Musculoskeletal: reports: No Symptoms Integumentary: reports: No Symptoms Neurological: reports: No Symptoms Endocrine: reports: No Symptoms Hematology/Lymphatic: reports: No Symptoms Psychiatric: reports: No Symptoms Vital Signs: Vital Signs Temperature 97.8 F 11/19/16 16:32 Pulse Rate 86 11/19/16 16:32 Respiratory Rate 18 11/19/16 16:32 Blood Pressure 125/85 11/19/16 16:32 O2 Sat by Pulse Oximetry (%) 97 11/19/16 16:32 Constitutional: Yes: Well Nourished, No Distress, Calm Eyes: Yes: WNL, Conjunctiva Clear, EOM Intact HENT: Yes: WNL, Atraumatic, Normocephalic Neck: Yes: WNL, Supple, Trachea Midline Respiratory: Yes: Diminished Gastrointestinal: Yes: WNL, Normal Bowel Sounds Renal/: Yes: WNL Cardiovascular: Yes: WNL, Regular Rate and Rhythm Musculoskeletal: Yes: WNL Extremities: Yes: WNL Edema: Yes Integumentary: Yes: WNL Neurological: Yes: WNL, Alert, Oriented ...Motor Strength: WNL Psychiatric: Yes: WNL, Alert, Oriented - Other Data Labs, Other Data: CBC, BMP 11/19/16 10:10 11/19/16 10:10 INR, PTT INR 2.21 (0.82-1.09) H 11/19/16 10:10 Troponin, BNP 11/19/16 11/19/16 10:10 16:32 Troponin I 0.09 H 0.08 H B-Natriuretic Peptide 3304.08 H 2935.37 H Troponin, BNP 11/19/16 11/19/16 10:10 16:32 Troponin I 0.09 H 0.08 H B-Natriuretic Peptide 3304.08 H 2935.37 H Imaging - Results Chest X-ray: Image Reviewed (chf) EKG: Image Reviewed (sr incomplete LBBB) Problem List - Problems (1) CHF exacerbation Code(s): I50.9 - HEART FAILURE, UNSPECIFIED Qualifiers: Congestive heart failure type: combined Qualified Code(s): I50.43 - Acute on chronic combined systolic (congestive) and diastolic (congestive) heart failure (2) Chest pain of uncertain etiology Code(s): R07.89 - OTHER CHEST PAIN (3) Abdominal pain, diffuse Code(s): R10.84 - GENERALIZED ABDOMINAL PAIN (4) Acute combined systolic and diastolic ACC/AHA stage C congestive heart failure Code(s): I50.41 - ACUTE COMBINED SYSTOLIC AND DIASTOLIC (CONGESTIVE) HRT FAIL (5) Chest pain Code(s): R07.9 - CHEST PAIN, UNSPECIFIED Qualifiers: Chest pain type: unspecified Qualified Code(s): R07.9 - Chest pain, unspecified (6) Dyspepsia Code(s): K30 - FUNCTIONAL DYSPEPSIA (7) Elevated troponin Code(s): R74.8 - ABNORMAL LEVELS OF OTHER SERUM ENZYMES (8) Hyperbilirubinemia Code(s): E80.6 - OTHER DISORDERS OF BILIRUBIN METABOLISM (9) Hyperlipidemia Code(s): E78.5 - HYPERLIPIDEMIA, UNSPECIFIED (10) Hypertension Code(s): I10 - ESSENTIAL (PRIMARY) HYPERTENSION (11) Noncompliance with medication regimen Code(s): Z91.14 - PATIENT'S OTHER NONCOMPLIANCE WITH MEDICATION REGIMEN (12) Peripheral neuropathy Code(s): G62.9 - POLYNEUROPATHY, UNSPECIFIED Qualifiers: Peripheral neuropathy type: polyneuropathy, unspecified Qualified Code( s): G62.9 - Polyneuropathy, unspecified (14) Sphincter of Oddi dysfunction Code(s): K83.4 - SPASM OF SPHINCTER OF ODDI (15) Status post THR (total hip replacement) Code(s): Z96.649 - PRESENCE OF UNSPECIFIED ARTIFICIAL HIP JOINT (16) Transaminitis Code(s): R74.0 - NONSPEC ELEV OF LEVELS OF TRANSAMNS & LACTIC ACID DEHYDRGNSE (17) Postoperative abdominal pain Code(s): R10.9 - UNSPECIFIED ABDOMINAL PAIN G89.18 - OTHER ACUTE POSTPROCEDURAL PAIN (18) LIANNA (acute kidney injury) Code(s): N17.9 - ACUTE KIDNEY FAILURE, UNSPECIFIED (19) Bacteremia Code(s): R78.81 - BACTEREMIA (20) Hypokalemia Code(s): E87.6 - HYPOKALEMIA (21) Sepsis Code(s): A41.9 - SEPSIS, UNSPECIFIED ORGANISM (22) Abdominal pain Code(s): R10.9 - UNSPECIFIED ABDOMINAL PAIN (23) Acute on chronic systolic and diastolic heart failure, NYHA class 1 Code(s): I50.43 - ACUTE ON CHRONIC COMBINED SYSTOLIC AND DIASTOLIC HRT FAIL (24) CHF (congestive heart failure) Code(s): I50.9 - HEART FAILURE, UNSPECIFIED (25) Chronic systolic congestive heart failure Code(s): I50.22 - CHRONIC SYSTOLIC (CONGESTIVE) HEART FAILURE (26) Cigarette nicotine dependence Code(s): F17.210 - NICOTINE DEPENDENCE, CIGARETTES, UNCOMPLICATED (27) Coronary artery disease Code(s): I25.10 - ATHSCL HEART DISEASE OF THREE AFFILIATED CORONARY ARTERY W/O ANG PCTRS (28) Depression Code(s): F32.9 - MAJOR DEPRESSIVE DISORDER, SINGLE EPISODE, UNSPECIFIED (29) Diabetes Code(s): E11.9 - TYPE 2 DIABETES MELLITUS WITHOUT COMPLICATIONS Qualifiers: Diabetes mellitus type: type 2 Diabetes mellitus complication status: with unspecified complications Diabetes mellitus fci insulin use: with medical terminologist use Qualified Code(s): E11.8 - Type 2 diabetes mellitus with unspecified complications; Z79.4 - intermodal dispatcher (current) use of insulin (30) Elevated liver function tests Code(s): R94.5 - ABNORMAL RESULTS OF LIVER FUNCTION STUDIES (31) Fatty liver Code(s): K76.0 - FATTY (CHANGE OF) LIVER, NOT ELSEWHERE CLASSIFIED (32) Hypothyroidism Code(s): E03.9 - HYPOTHYROIDISM, UNSPECIFIED (33) ICD (implantable cardioverter-defibrillator) in place Code(s): Z95.810 - PRESENCE OF AUTOMATIC (IMPLANTABLE) CARDIAC DEFIBRILLATOR (34) Lower extremity edema Code(s): R60.0 - LOCALIZED EDEMA (35) NSVT (nonsustained ventricular tachycardia) Code(s): I47.2 - VENTRICULAR TACHYCARDIA (36) Sleep apnea Code(s): G47.30 - SLEEP APNEA, UNSPECIFIED (37) Tobacco use disorder Code(s): Z72.0 - TOBACCO USE (38) Cardiac cirrhosis Code(s): K76.1 - CHRONIC PASSIVE CONGESTION OF LIVER Assessment/Plan CHF systolic acute hypertension, hyperlipidemia, diabetes mellitus, CAD s/p defibrillator/ pacemaker, CABG, NH, hypothyroidism Plan; agree with IV lasix doubt ACS cont present rx
--- NOTE | 2016-11-19 18:03 | HP ---
Admitting History and Physical - Admission Chief Complaint: SOB, chest pain History of Present Illness: HPI Briefly, this 61 year old female with 61 year with chronic abdominal pain ( thought to be due to liver cirrhosis/biliary tree strictures s/p lap naomi for acalcalous cholecystitis 05/05), hyperbilirubinemia, HTN, HLD, DM, CAD s/p [place] 2003, CABG in 2003 s/p stents2, Systolic CHF s/p ICD/Pacemaker, COPD, current smoker, hypothyroid & peripheral neuropathy presented with abdominal pain referring up to her chest. Per discussion with ED attending on arrival her breathing was labored and tachypneic along with +2 pitting edema. Currently, she is laying HOB 20 degrees comfortable and her edema has nearly resolved. The patient is now complaining of feet pain to which she says comes and goes and now is painful and abdominal pain similar as in past. Previous admission pt was treated for Group B bacteremia, left AMA on PO antibiotics to which she states she completed. 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 Had PEG placed 11/03 after suffering vocal cord damage ( EMS intubation). PEG was subsequently removed. ) Hepatobiliary: Yes: Cirrhosis (cardiac cirrhosis), Cholecystitis (s/p lap choly 05/05) Renal/: Yes: Renal Calculi Psych: Yes: Depression Musculoskeletal: Yes: Chronic low back pain, Osteoarthritis Endocrine: Yes: Hypothyroidism - Past Surgical History Past Surgical History: Yes: AICD, CABG, Cholecystectomy, Colonoscopy, Joint Replacement (right THR), Stent (X2) - Smoking History Smoking history: Current some day smoker Have you smoked in the past 12 months: Yes Aproximately how many cigarettes per day: 5 - Alcohol/Substance Use Hx Alcohol Use: No History of Substance Use: reports: None - Social History Usual Living Arrangement: Yes: Alone ADL: Independent 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 History of Recent Travel: No Home Medications - Allergies Allergies/Adverse Reactions: Allergies Allergy/AdvReac Type Severity Reaction Status Date / Time aspirin Allergy Mild Rash Verified 11/19/16 09:32 banana Allergy Hives Verified 11/19/16 09:32 tomato Allergy Verified 11/19/16 09:32 - Home Medications Home Medications: Ambulatory Orders Calamine 8% Topical Lotion - 1 applic TP BID PRN #0 bottle 08/04/16 Clopidogrel Bisulfate [Plavix -] 75 mg PO DAILY #30 tablet 08/04/16 Levothyroxine [Synthroid -] 75 mcg PO DAILY #30 tab 08/04/16 Mineral Oil/Petrolat,Wht/Water [Eucerin (Large Jar) -] 1 applic TP DAILY PRN #0 jar 08/04/16 Spironolactone 50 mg PO DAILY #30 tablet 08/04/16 Furosemide [Lasix -] 80 mg PO BID #60 tablet 08/27/16 Metoprolol Succinate [Toprol Xl] 100 mg PO DAILY #30 tab.er.24h 08/27/16 Potassium Chloride 20 meq PO DAILY #30 tab 08/27/16 Atorvastatin Ca [Lipitor] 20 mg PO HS 09/08/16 Lisinopril [Prinivil] 5 mg PO DAILY #30 tablet 09/14/16 Family Disease History - Family Disease History Family Disease History: Diabetes: Sister (s/p CABG in her 50s), Heart Disease: Father (had unknown cancer), Mother (lived to ), Sister, [place]: Father Review of Systems - Review of Systems Constitutional: reports: No Symptoms Eyes: reports: No Symptoms HENT: reports: No Symptoms Neck: reports: No Symptoms Cardiovascular: reports: Chest Pain, Shortness of Breath Respiratory: reports: SOB, SOB on Exertion Gastrointestinal: reports: Abdominal Pain Genitourinary: reports: No Symptoms Musculoskeletal: reports: Extremity Pain Integumentary: reports: No Symptoms Neurological: reports: No Symptoms Endocrine: reports: No Symptoms Hematology/Lymphatic: reports: No Symptoms Psychiatric: reports: No Symptoms Physical Examination Vital Signs: Vital Signs Temperature 97.8 F 11/19/16 16:32 Pulse Rate 86 11/19/16 16:32 Respiratory Rate 18 11/19/16 16:32 Blood Pressure 125/85 11/19/16 16:32 O2 Sat by Pulse Oximetry (%) 97 11/19/16 16:32 Constitutional: Yes: Well Nourished Eyes: Yes: Conjunctiva Clear HENT: Yes: Atraumatic Neck: Yes: Supple Cardiovascular: Yes: Regular Rate and Rhythm, Murmur, S1, S2 Respiratory: Yes: Regular (L base crackles), On Nasal O2 Gastrointestinal: Yes: Normal Bowel Sounds, Soft, Other (laproscopic incisons- healed) Extremities: Yes: Other (feet tenderness) Edema: Yes Edema: LLE: Trace, RLE: 1+ Neurological: Yes: Alert, Oriented, Cran Nerves II-XII Intact Psychiatric: Yes: Alert, Oriented Labs: CBC, BMP 11/19/16 10:10 11/19/16 10:10 Imaging - Results Chest X-ray: Report Reviewed, Image Reviewed (some increased densiy in retrocardiac area) Cat Scan: Report Reviewed (small amount of perhepatic fluid increased from 10/15) Ultrasound: Report Reviewed (no dvt) Assessment/Plan Assessment: 61 year old female admitted with SOB and chest pain. Plan: 1. Acute systolic CHF exacerbation - Lasix 80mg IVP in ED - Repeat BNP with improvement - Daily weights, previous admission discharge weight 151lb - Will obtain weight before resume PO lasix or continuing with IV, currently pt sx improved 2. SOB - Likely volume overload, non compliant with medication 3. Atypical chest pain - Trops x2 negative - EKG NSR 4. HTN - Lisinopril 5mg - Toprol xl 100mg day 5. CABG s/p stents x2 - Toprol 100mg daily - Statin 20mg daily - Plavix 75mg daily - Pacemaker due for interrogation 11/2016 6. Peripheral neuropathy - If worsens start neurontin 7. Hypothyroid - Synthroid 75mcg daily 8. Chronic abd pain - CT shows increased perihepatic fluid - Will discuss with GI Visit type - Emergency Visit Emergency Visit: Yes Care time: The patient presented to the Emergency Department on the above date and was hospitalized for further evaluation of their emergent condition. - New Patient This patient is new to me today: Yes Date on this admission: 11/19/16 - Critical Care Critical Care patient: No
[2016-11-19] MEDS: ATORVASTATIN CA 20 MG TABLET (FP) PO SCH (21:56)
[2016-11-20] MEDS ORDERED: FUROSEMIDE 40 MG TABLET (FP) PO SCH (06:00)
[2016-11-20] MEDS: LEVOTHYROXINE NA 75 MCG TABLET (FP) PO SCH (06:28)
[2016-11-20 07:28] LABS: BASOPHIL 0.4 % (0-2.0); MCH 27.3 pg (25.7-33.7); MCHC 32.3 g/dl (32.0-36.0); MEAN CELL VOLUME 84.6 fl (80-96); MEAN PLT VOLUME 8.5 fl (7.5-11.1); NEUTROPHILS 69.1 % (42.8-82.8); PLATELET COUNT 169 K/MM3 (134-434); RDW 22.7 % (11.6-15.6); WHITE BLOOD COUNT 6.3 K/mm3 (4.0-10.0)
[2016-11-20] MEDS ORDERED: FUROSEMIDE 40 MG/4 ML INJECTABLE VIAL IVPUSH ONE ×3 (07:48→17:15)
[2016-11-20 07:54] LABS: ALBUMIN 2.8 g/dl (3.4-5.0); ANION GAP 9 (8-16); CALCIUM 8.7 mg/dL (8.5-10.1); CO2 28 mmol/L (21-32); CREATININE 0.8 mg/dL (0.55-1.02); GLUCOSE,RANDOM 50 mg/dL (74-106); PHOSPHOROUS 3.1 mg/dL (2.5-4.9); SGPT/ALT 14 U/L (12-78)
[2016-11-20 07:55] LABS: ALK PHOS 138 U/L (45-117); TOT PROT 6.3 g/dl (6.4-8.2)
[2016-11-20 08:26] LABS: MAGNESIUM 1.4 mg/dL (1.8-2.4); SGOT/AST 37 U/L (15-37)
[2016-11-20] MEDS: LISINOPRIL 5 MG TABLET (FP) PO SCH (09:04)
[2016-11-20] MEDS: ENOXAPARIN NA (PORCINE) 40 MG/0.4 ML DISP.SYRIN SQ SCH (09:04)
[2016-11-20] MEDS: CLOPIDOGREL BISULFATE 75 MG TABLET (FP) PO SCH (09:04)
[2016-11-20] MEDS: METOPROLOL SUCCINATE 100 MG TAB.SR.24H (FP) PO SCH (09:04)
[2016-11-20] MEDS ORDERED: MAGNESIUM SULF 50% (8.12 MEQ/2 ML-1 GM VIAL) IVPB ONE (12:45)
--- NOTE | 2016-11-20 14:37 | PN ---
Progress Note (short form) - Note Progress Note: ID consult dictated 61 year old female with CAD/autoimmune hepatitis with cirrhosis admitted with SOB and leg edema she was recently hospitalized with fever end of September and had positive blood cultures for group b strep - she left AMA after 10 days of iv antibiotics and states she completed 18 days of po antibiotics now she returns with chf no fevers or chills, normal WBC chronic abdomnal pain unchanged chronic leg pain unchanged suggest obtaining surveillance blood cultures off antibiotics to document clearing of blood cultures no signs SBP or other infection at this time diuresis per cardiology
--- NOTE | 2016-11-20 15:03 | PN ---
Progress Note, Physician History of Present Illness: The patient is a 61 year old female with past medical history of hypertension, hyperlipidemia, diabetes mellitus, CAD s/p defibrillator/ pacemaker, CABG, UT, CHF, hypothyroidism who presents to the ED with complaints of of abdominal pain for the past three days. The patient states that the pain radiates to her chest. The patient also reports mild shortness of breath with exertion as well as bilateral lower extremity edema and generalized pain "all over her body", which she says is normal for her. Last month the patient was admitted for abdominal pain and was being evaluated for autoimmune hepatitis. While admitted , the patient was found to have Group B strep bacteremia. The patient signed out AMA and was discharged on a course of antibiotics. In the ED, the patient states she recently finished her course of antibiotics. She reports she does not know any of her medications and implies overall noncompliance. - Current Medication List Current Medications: Active Medications Atorvastatin Calcium (Lipitor -) 20 mg PO HS [facility] Last Admin: 11/19/16 21:56 Dose: 20 mg Clopidogrel Bisulfate (Plavix -) 75 mg PO DAILY [facility] Last Admin: 11/20/16 09:04 Dose: 75 mg Enoxaparin Sodium (Lovenox -) 40 mg SQ DAILY [facility] Last Admin: 11/20/16 09:04 Dose: 40 mg Levothyroxine Sodium (Synthroid -) 75 mcg PO ACBK [facility] Last Admin: 11/20/16 06:28 Dose: 75 mcg Lisinopril (Prinivil) 5 mg PO DAILY [facility] Last Admin: 11/20/16 09:04 Dose: 5 mg Metoprolol Succinate (Toprol Xl -) 100 mg PO DAILY [facility] Last Admin: 11/20/16 09:04 Dose: 100 mg - Objective Vital Signs: Vital Signs Temperature 97.8 F 11/20/16 09:00 Pulse Rate 63 11/20/16 09:00 Respiratory Rate 20 11/20/16 09:00 Blood Pressure 137/73 11/20/16 09:00 O2 Sat by Pulse Oximetry (%) 97 11/20/16 09:00 Eyes: Yes: WNL, Conjunctiva Clear, EOM Intact HENT: Yes: WNL, Atraumatic, Normocephalic Neck: Yes: WNL, Supple, Trachea Midline Cardiovascular: Yes: WNL, Regular Rate and Rhythm, S1, S2 Respiratory: Yes: Diminished Gastrointestinal: Yes: WNL, Normal Bowel Sounds Genitourinary: Yes: WNL Musculoskeletal: Yes: WNL Extremities: Yes: WNL Edema: No Integumentary: Yes: WNL Neurological: Yes: WNL, Alert, Oriented ...Motor Strength: WNL Psychiatric: Yes: WNL Labs: CBC, BMP 11/20/16 05:35 11/20/16 05:35 INR, PTT INR 2.21 (0.82-1.09) H 11/19/16 10:10 Laboratory Tests 11/19/16 11/19/16 11/19/16 10:00 10:10 10:10 WBC 6.7 RBC 4.48 Hgb 12.2 Hct 37.8 MCV 84.3 MCHC 32.3 RDW 22.9 H Plt Count 179 D MPV 8.1 Neutrophils % 67.3 Lymphocytes % 18.6 Monocytes % 13.4 H D Eosinophils % 0.0 Basophils % 0.7 Hypochromic-Microcytic 1+ Anisocytosis 2+ Macrocytosis 2+ Acanthocytes (Spur) 1+ INR 2.21 H Puncture Site Right brachial ABG pH 7.46 H ABG pCO2 at Pt Temp 34.0 L D ABG pO2 at Pt Temp 79.9 L D ABG HCO3 23.6 ABG O2 Sat (Measured) 96.0 ABG O2 Content 15.7 ABG Base Excess 0.6 Eduar Test Positive Carboxyhemoglobin 2.9 H Methemoglobin 0.5 Oxygen Flow Rate No PEEP 0.0 Sodium Potassium Chloride Carbon Dioxide Anion Gap BUN Creatinine Creat Clearance w eGFR POC Glucometer Random Glucose Lactic Acid Calcium Phosphorus Magnesium Total Bilirubin AST ALT Alkaline Phosphatase Creatine Kinase CK-MB (CK-2) Troponin I B-Natriuretic Peptide Total Protein Albumin 11/19/16 11/19/16 11/19/16 10:10 10:15 16:32 WBC RBC Hgb Hct MCV MCHC RDW Plt Count MPV Neutrophils % Lymphocytes % Monocytes % Eosinophils % Basophils % Hypochromic-Microcytic Anisocytosis Macrocytosis Acanthocytes (Spur) INR Puncture Site ABG pH ABG pCO2 at Pt Temp ABG pO2 at Pt Temp ABG HCO3 ABG O2 Sat (Measured) ABG O2 Content ABG Base Excess Eduar Test Carboxyhemoglobin Methemoglobin Oxygen Flow Rate PEEP Sodium 137 Potassium 3.6 Chloride 102 Carbon Dioxide 25 D Anion Gap 10 BUN 12 Creatinine 0.8 Creat Clearance w eGFR > 60 POC Glucometer Random Glucose 81 Lactic Acid 1.7 Calcium 9.2 Phosphorus Magnesium Total Bilirubin 4.1 H AST 47 H D ALT 18 D Alkaline Phosphatase 158 H Creatine Kinase 246 H D 191 D CK-MB (CK-2) 6.821 H 5.462 H Troponin I 0.09 H 0.08 H B-Natriuretic Peptide 3304.08 H 2935.37 H Total Protein 7.0 D Albumin 3.2 L D 11/19/16 11/20/16 11/20/16 19:02 05:35 05:35 WBC 6.3 RBC 4.33 Hgb 11.8 Hct 36.6 MCV 84.6 MCHC 32.3 RDW 22.7 H Plt Count 169 MPV 8.5 Neutrophils % 69.1 Lymphocytes % 18.2 Monocytes % 12.3 H Eosinophils % 0.0 Basophils % 0.4 Hypochromic-Microcytic Anisocytosis Macrocytosis Acanthocytes (Spur) INR Puncture Site ABG pH ABG pCO2 at Pt Temp ABG pO2 at Pt Temp ABG HCO3 ABG O2 Sat (Measured) ABG O2 Content ABG Base Excess Eduar Test Carboxyhemoglobin Methemoglobin Oxygen Flow Rate PEEP Sodium 140 Potassium 3.7 Chloride 103 Carbon Dioxide 28 Anion Gap 9 BUN 12 Creatinine 0.8 Creat Clearance w eGFR > 60 POC Glucometer 82.15495 Random Glucose 50 L D Lactic Acid Calcium 8.7 Phosphorus 3.1 D Magnesium 1.4 L D Total Bilirubin 4.0 H AST 37 D ALT 14 D Alkaline Phosphatase 138 H Creatine Kinase CK-MB (CK-2) Troponin I B-Natriuretic Peptide Total Protein 6.3 L Albumin 2.8 L Problem List - Problems (1) CHF exacerbation Code(s): I50.9 - HEART FAILURE, UNSPECIFIED Qualifiers: Congestive heart failure type: combined Qualified Code(s): I50.43 - Acute on chronic combined systolic (congestive) and diastolic (congestive) heart failure (2) Chest pain of uncertain etiology Code(s): R07.89 - OTHER CHEST PAIN (3) Abdominal pain, diffuse Code(s): R10.84 - GENERALIZED ABDOMINAL PAIN (4) Acute combined systolic and diastolic ACC/AHA stage C congestive heart failure Code(s): I50.41 - ACUTE COMBINED SYSTOLIC AND DIASTOLIC (CONGESTIVE) HRT FAIL (5) Chest pain Code(s): R07.9 - CHEST PAIN, UNSPECIFIED Qualifiers: Chest pain type: unspecified Qualified Code(s): R07.9 - Chest pain, unspecified (6) Dyspepsia Code(s): K30 - FUNCTIONAL DYSPEPSIA (7) Elevated troponin Code(s): R74.8 - ABNORMAL LEVELS OF OTHER SERUM ENZYMES (8) Hyperbilirubinemia Code(s): E80.6 - OTHER DISORDERS OF BILIRUBIN METABOLISM (9) Hyperlipidemia Code(s): E78.5 - HYPERLIPIDEMIA, UNSPECIFIED (10) Hypertension Code(s): I10 - ESSENTIAL (PRIMARY) HYPERTENSION (11) Noncompliance with medication regimen Code(s): Z91.14 - PATIENT'S OTHER NONCOMPLIANCE WITH MEDICATION REGIMEN (12) Peripheral neuropathy Code(s): G62.9 - POLYNEUROPATHY, UNSPECIFIED Qualifiers: Peripheral neuropathy type: polyneuropathy, unspecified Qualified Code( s): G62.9 - Polyneuropathy, unspecified (14) Sphincter of Oddi dysfunction Code(s): K83.4 - SPASM OF SPHINCTER OF ODDI (15) Status post THR (total hip replacement) Code(s): Z96.649 - PRESENCE OF UNSPECIFIED ARTIFICIAL HIP JOINT (16) Transaminitis Code(s): R74.0 - NONSPEC ELEV OF LEVELS OF TRANSAMNS & LACTIC ACID DEHYDRGNSE (17) Postoperative abdominal pain Code(s): R10.9 - UNSPECIFIED ABDOMINAL PAIN G89.18 - OTHER ACUTE POSTPROCEDURAL PAIN (18) LIANNA (acute kidney injury) Code(s): N17.9 - ACUTE KIDNEY FAILURE, UNSPECIFIED (19) Bacteremia Code(s): R78.81 - BACTEREMIA (20) Hypokalemia Code(s): E87.6 - HYPOKALEMIA (21) Sepsis Code(s): A41.9 - SEPSIS, UNSPECIFIED ORGANISM (22) Abdominal pain Code(s): R10.9 - UNSPECIFIED ABDOMINAL PAIN (23) Acute on chronic systolic and diastolic heart failure, NYHA class 1 Code(s): I50.43 - ACUTE ON CHRONIC COMBINED SYSTOLIC AND DIASTOLIC HRT FAIL (24) CHF (congestive heart failure) Code(s): I50.9 - HEART FAILURE, UNSPECIFIED (25) Chronic systolic congestive heart failure Code(s): I50.22 - CHRONIC SYSTOLIC (CONGESTIVE) HEART FAILURE (26) Cigarette nicotine dependence Code(s): F17.210 - NICOTINE DEPENDENCE, CIGARETTES, UNCOMPLICATED (27) Coronary artery disease Code(s): I25.10 - ATHSCL HEART DISEASE OF [place] CORONARY ARTERY W/O ANG PCTRS (28) Depression Code(s): F32.9 - MAJOR DEPRESSIVE DISORDER, SINGLE EPISODE, UNSPECIFIED (29) Diabetes Code(s): E11.9 - TYPE 2 DIABETES MELLITUS WITHOUT COMPLICATIONS Qualifiers: Diabetes mellitus type: type 2 Diabetes mellitus complication status: with unspecified complications Diabetes mellitus long-term insulin use: with intermediate frame tender use Qualified Code(s): E11.8 - Type 2 diabetes mellitus with unspecified complications; Z79.4 - intermediate (current) use of insulin (30) Elevated liver function tests Code(s): R94.5 - ABNORMAL RESULTS OF LIVER FUNCTION STUDIES (31) Fatty liver Code(s): K76.0 - FATTY (CHANGE OF) LIVER, NOT ELSEWHERE CLASSIFIED (32) Hypothyroidism Code(s): E03.9 - HYPOTHYROIDISM, UNSPECIFIED (33) ICD (implantable cardioverter-defibrillator) in place Code(s): Z95.810 - PRESENCE OF AUTOMATIC (IMPLANTABLE) CARDIAC DEFIBRILLATOR (34) Lower extremity edema Code(s): R60.0 - LOCALIZED EDEMA (35) NSVT (nonsustained ventricular tachycardia) Code(s): I47.2 - VENTRICULAR TACHYCARDIA (36) Sleep apnea Code(s): G47.30 - SLEEP APNEA, UNSPECIFIED (37) Tobacco use disorder Code(s): Z72.0 - TOBACCO USE (38) Cardiac cirrhosis Code(s): K76.1 - CHRONIC PASSIVE CONGESTION OF LIVER Assessment/Plan CHF systolic acute hypertension, hyperlipidemia, diabetes mellitus, CAD s/p defibrillator/ pacemaker, CABG, UT, hypothyroidism Plan; agree with IV lasix doubt ACS cont present rx
--- NOTE | 2016-11-20 15:50 | PN ---
Physical Exam: SUBJECTIVE: Patient seen and examined this AM. She said she is feeling better, her feet still hurt. OBJECTIVE: Vital Signs Period Temp Pulse Resp BP Sys/Santoro Pulse Ox Last 24 Hr 97.5 F-98.5 F 63-90 14-20 102-137/60-78 96-97 PE Neuro: alert, awake, cn 2-12intact Pulm: left base crackles, no wheezing CV: s1 s2 rrr +pacemaker Abd: diffuse abd tenderness- chronic Ext: warm, +1 b/l edema, feet tingling Laboratory Results - last 24 hr 11/19/16 11/20/16 11/20/16 19:02 05:35 05:35 WBC 6.3 RBC 4.33 Hgb 11.8 Hct 36.6 MCV 84.6 MCHC 32.3 RDW 22.7 H Plt Count 169 MPV 8.5 Neutrophils % 69.1 Lymphocytes % 18.2 Monocytes % 12.3 H Eosinophils % 0.0 Basophils % 0.4 Sodium 140 Potassium 3.7 Chloride 103 Carbon Dioxide 28 Anion Gap 9 BUN 12 Creatinine 0.8 Creat Clearance w eGFR > 60 POC Glucometer 82.20880 Random Glucose 50 L D Calcium 8.7 Phosphorus 3.1 D Magnesium 1.4 L D Total Bilirubin 4.0 H AST 37 D ALT 14 D Alkaline Phosphatase 138 H Total Protein 6.3 L Albumin 2.8 L Active Medications Generic Name Dose Route Start Last Admin Trade Name Freq PRN Reason Stop Dose Admin Atorvastatin Calcium 20 mg 11/19/16 22:00 11/19/16 21:56 Lipitor - PO 20 mg HS [facility] Administration Clopidogrel Bisulfate 75 mg 11/20/16 10:00 11/20/16 09:04 Plavix - PO 75 mg DAILY [facility] Administration Enoxaparin Sodium 40 mg 11/20/16 10:00 11/20/16 09:04 Lovenox - SQ 40 mg DAILY [facility] Administration Furosemide 80 mg 11/20/16 15:44 Lasix Injection - IVPUSH 11/20/16 15:45 ONCE ONE Levothyroxine Sodium 75 mcg 11/20/16 07:00 11/20/16 06:28 Synthroid - PO 75 mcg ACBK [facility] Administration Lisinopril 5 mg 11/20/16 10:00 11/20/16 09:04 Prinivil PO 5 mg DAILY [facility] Administration Metoprolol Succinate 100 mg 11/20/16 10:00 11/20/16 09:04 Toprol Xl - PO 100 mg DAILY [facility] Administration Imaging: - CTAP 11/19: increased perihepatic fluid Assessment: 61 year old with chronic abdominal pain (thought to be due to liver cirrhosis/biliary tree strictures s/p lap naomi for acalcalous cholecystitis ), hyperbilirubinemia, HTN, HLD, DM II, CAD s/p IN 2003, CABG in 2003 s/p stents2, Systolic CHF s/p ICD/Pacemaker, COPD, current smoker, hypothyroid & peripheral neuropathy presented with abdominal pain referring up to her chest. Plan: 1. Acute systolic CHF exacerbation - IV lasix 80mg x2 today - Re eval in AM for further doses - Today weight 158lb, previous dry weight 151lb 2. SOB - Likely volume overload, non compliant with medication 3. Atypical chest pain - Trops x2 negative 4. HTN - BP stable - Lisinopril 5mg daily - Toprol xl 100mg day 5. CABG s/p stents x2 - Toprol 100mg daily - Statin 20mg daily - Plavix 75mg daily - Pacemaker due for interrogation 11/2016 6. Peripheral neuropathy - If worsens start neurontin 7. Hypothyroid - Synthroid 75mcg daily 8. Chronic abd pain - Surveillance blood cultures ordered for perihepatic fluid - Has had congestive hepatopathy in past with CHF exacerbations - Liver enzymes improving 9. COPD - Not in exacerbation Visit type - Emergency Visit Emergency Visit: Yes ED Registration Date: 11/19/16 Care time: The patient presented to the Emergency Department on the above date and was hospitalized for further evaluation of their emergent condition. - New Patient This patient is new to me today: No - Critical Care Critical Care patient: No
[2016-11-20] MEDS ORDERED: FUROSEMIDE 100 MG/10 ML INJECTABLE VIAL ONE (17:25)
--- NOTE | 2016-11-20 20:50 | CONS ---
DATE OF CONSULTATION: DATE OF DICTATION: 11/20/2016 INFECTIOUS DISEASE CONSULTATION REQUESTING PHYSICIAN: Hospitalist service. CONSULTING PHYSICIAN: Gayatri Guerrero M.D. HISTORY OF PRESENT ILLNESS: This is a 61-year-old woman with a history of autoimmune hepatitis and cirrhosis, coronary artery disease status post CABG, admitted with worsening shortness of breath and leg edema. She describes pain all over. She has no fevers or chills. Of note, she had a recent admission at the end of September where she had fever and hypotension and was found to have group B Streptococcus bacteremia. She received 10 days of IV antibiotics and left AMA and completed she stated 18 days of oral antibiotics. She now returns for shortness of breath and lower extremity edema as well as pain all over, and I am asked to see her. She has no fevers or chills, no nausea or vomiting, she is eating well. She states her abdominal pain is chronic, she has had it since her cholecystectomy as well as her lower extremity pain. PAST MEDICAL HISTORY: Notable for hypertension, hyperlipidemia, diabetes, coronary artery disease, heart failure, hypothyroidism, nephrolithiasis, peripheral neuropathy. She has a history of autoimmune hepatitis and liver cirrhosis. She has a history of COPD, diverticulosis. She has had a PEG in the past so was subsequently removed, and she has a history of depression. SURGICAL HISTORY: Notable for cholecystitis, status post laparoscopic cholecystectomy in April of 2016. She had a CABG in 2003. She has an AICD as well. She has had a right total hip replacement and has had 2 stents. FAMILY HISTORY: She lives alone. 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 SOCIAL HISTORY: She occasionally smokes several cigarettes a day. No history of any alcohol use. ALLERGIES: She is allergic to ASPIRIN, BANANA, TOMATO. MEDICATIONS AT HOME: Include calamine lotion, Plavix, Synthroid, spironolactone, Lasix, Toprol XL, potassium, atorvastatin, and lisinopril. FAMILY HISTORY: Notable for diabetes in the sister and heart disease. REVIEW OF SYSTEMS: She reports her abdominal pain is improved. It is chronic. She has had it since the gallbladder surgery and her lower extremity edema is improved. PHYSICAL EXAMINATION: General: She is awake and alert. Vital signs: She has been afebrile since admission. Temperature is 98.4, pulse is 75, blood pressure 102/60, respiratory rate 14, she is saturating 97% on 2 L. HEENT: Normocephalic. Eyes are muddy. She has no thrush. Neck: Supple. Lungs: Diminished breath sounds at the bases. Heart: Regular rate and rhythm. Abdomen: Soft. She has some mild suprapubic discomfort that she states is chronic. Extremities: Her extremities have trace edema. LABORATORY: Notable for a white count of 6.3, hemoglobin 11.8, platelets of 169. BUN and creatinine are 12 and 0.8. She has a bilirubin of 4 and an alkaline phosphatase of 138. She had duplex of the leg that was negative for DVT. An x-ray done in the emergency room shows a large heart with sternal sutures, prominent hilar markings, and she has got a CT of her abdomen and pelvis that shows a small amount of very hepatic free fluid. She is status post cholecystectomy and she has got concentric subcutaneous edema of the abdomen and pelvis. IMPRESSION: In summary, this is a 61-year-old woman with coronary artery disease, autoimmune hepatitis admitted with congestive heart failure, no fevers or chills to suggest infection. Her chronic abdominal pain and leg pain is unchanged. I would suggest obtaining surveillance blood cultures off antibiotics to document clearing of blood cultures of her intravenous treatment was truncated by her decision to leave AMA. She does report completing the oral antibiotics. She has no signs of SBP or other infection at this time. Diuresis per cardiology. Case was discussed with the hospitalist. GAYATRI GUERRERO M.D. [id number]
[2016-11-20] MEDS: ATORVASTATIN CA 20 MG TABLET (FP) PO SCH (21:48)
[2016-11-21] MEDS: LEVOTHYROXINE NA 75 MCG TABLET (FP) PO SCH (06:00)
[2016-11-21] MEDS: LISINOPRIL 5 MG TABLET (FP) PO SCH (09:23)
[2016-11-21] MEDS: METOPROLOL SUCCINATE 100 MG TAB.SR.24H (FP) PO SCH (09:23)
[2016-11-21] MEDS: CLOPIDOGREL BISULFATE 75 MG TABLET (FP) PO SCH (09:23)
[2016-11-21] MEDS: ENOXAPARIN NA (PORCINE) 40 MG/0.4 ML DISP.SYRIN SQ SCH ×2 (09:23→09:26)
--- NOTE | 2016-11-21 09:43 | PN ---
Progress Note, Physician History of Present Illness: The patient is a 61 year old female with past medical history of hypertension, hyperlipidemia, diabetes mellitus, CAD s/p defibrillator/ pacemaker, CABG, AL, CHF, hypothyroidism who presents to the ED with complaints of of abdominal pain for the past three days. The patient states that the pain radiates to her chest. The patient also reports mild shortness of breath with exertion as well as bilateral lower extremity edema and generalized pain "all over her body", which she says is normal for her. Last month the patient was admitted for abdominal pain and was being evaluated for autoimmune hepatitis. While admitted , the patient was found to have Group B strep bacteremia. The patient signed out AMA and was discharged on a course of antibiotics. In the ED, the patient states she recently finished her course of antibiotics. She reports she does not know any of her medications and implies overall noncompliance. - Current Medication List Current Medications: Active Medications Atorvastatin Calcium (Lipitor -) 20 mg PO HS [facility] Last Admin: 11/20/16 21:48 Dose: 20 mg Clopidogrel Bisulfate (Plavix -) 75 mg PO DAILY [facility] Last Admin: 11/21/16 09:23 Dose: 75 mg Enoxaparin Sodium (Lovenox -) 40 mg SQ DAILY [facility] Last Admin: 11/21/16 09:26 Dose: Not Given Levothyroxine Sodium (Synthroid -) 75 mcg PO ACBK [facility] Last Admin: 11/21/16 06:00 Dose: 75 mcg Lisinopril (Prinivil) 5 mg PO DAILY [facility] Last Admin: 11/21/16 09:23 Dose: 5 mg Metoprolol Succinate (Toprol Xl -) 100 mg PO DAILY [facility] Last Admin: 11/21/16 09:23 Dose: 100 mg - Objective Vital Signs: Vital Signs Temperature 97.7 F 11/21/16 02:05 Pulse Rate 65 11/21/16 06:00 Respiratory Rate 20 11/21/16 06:00 Blood Pressure 102/53 11/21/16 06:00 O2 Sat by Pulse Oximetry (%) 96 11/20/16 20:23 Eyes: Yes: WNL, Conjunctiva Clear, EOM Intact HENT: Yes: WNL, Atraumatic, Normocephalic Neck: Yes: WNL, Supple, Trachea Midline Cardiovascular: Yes: WNL, Regular Rate and Rhythm Respiratory: Yes: WNL, Regular, CTA Bilaterally Gastrointestinal: Yes: WNL, Normal Bowel Sounds Genitourinary: Yes: WNL Musculoskeletal: Yes: WNL Extremities: Yes: WNL Edema: No Edema: LLE: Trace, RLE: Trace Integumentary: Yes: WNL Neurological: Yes: WNL, Alert, Oriented ...Motor Strength: WNL Psychiatric: Yes: WNL Labs: CBC, BMP 11/20/16 05:35 11/20/16 05:35 INR, PTT INR 2.21 (0.82-1.09) H 11/19/16 10:10 Problem List - Problems (1) CHF exacerbation Code(s): I50.9 - HEART FAILURE, UNSPECIFIED Qualifiers: Congestive heart failure type: combined Qualified Code(s): I50.43 - Acute on chronic combined systolic (congestive) and diastolic (congestive) heart failure (2) Chest pain of uncertain etiology Code(s): R07.89 - OTHER CHEST PAIN (3) Abdominal pain, diffuse Code(s): R10.84 - GENERALIZED ABDOMINAL PAIN (4) Acute combined systolic and diastolic ACC/AHA stage C congestive heart failure Code(s): I50.41 - ACUTE COMBINED SYSTOLIC AND DIASTOLIC (CONGESTIVE) HRT FAIL (5) Chest pain Code(s): R07.9 - CHEST PAIN, UNSPECIFIED Qualifiers: Chest pain type: unspecified Qualified Code(s): R07.9 - Chest pain, unspecified (6) Dyspepsia Code(s): K30 - FUNCTIONAL DYSPEPSIA (7) Elevated troponin Code(s): R74.8 - ABNORMAL LEVELS OF OTHER SERUM ENZYMES (8) Hyperbilirubinemia Code(s): E80.6 - OTHER DISORDERS OF BILIRUBIN METABOLISM (9) Hyperlipidemia Code(s): E78.5 - HYPERLIPIDEMIA, UNSPECIFIED (10) Hypertension Code(s): I10 - ESSENTIAL (PRIMARY) HYPERTENSION (11) Noncompliance with medication regimen Code(s): Z91.14 - PATIENT'S OTHER NONCOMPLIANCE WITH MEDICATION REGIMEN (12) Peripheral neuropathy Code(s): G62.9 - POLYNEUROPATHY, UNSPECIFIED Qualifiers: Peripheral neuropathy type: polyneuropathy, unspecified Qualified Code( s): G62.9 - Polyneuropathy, unspecified (14) Sphincter of Oddi dysfunction Code(s): K83.4 - SPASM OF SPHINCTER OF ODDI (15) Status post THR (total hip replacement) Code(s): Z96.649 - PRESENCE OF UNSPECIFIED ARTIFICIAL HIP JOINT (16) Transaminitis Code(s): R74.0 - NONSPEC ELEV OF LEVELS OF TRANSAMNS & LACTIC ACID DEHYDRGNSE (17) Postoperative abdominal pain Code(s): R10.9 - UNSPECIFIED ABDOMINAL PAIN G89.18 - OTHER ACUTE POSTPROCEDURAL PAIN (18) LIANNA (acute kidney injury) Code(s): N17.9 - ACUTE KIDNEY FAILURE, UNSPECIFIED (19) Bacteremia Code(s): R78.81 - BACTEREMIA (20) Hypokalemia Code(s): E87.6 - HYPOKALEMIA (21) Sepsis Code(s): A41.9 - SEPSIS, UNSPECIFIED ORGANISM (22) Abdominal pain Code(s): R10.9 - UNSPECIFIED ABDOMINAL PAIN (23) Acute on chronic systolic and diastolic heart failure, NYHA class 1 Code(s): I50.43 - ACUTE ON CHRONIC COMBINED SYSTOLIC AND DIASTOLIC HRT FAIL (24) CHF (congestive heart failure) Code(s): I50.9 - HEART FAILURE, UNSPECIFIED (25) Chronic systolic congestive heart failure Code(s): I50.22 - CHRONIC SYSTOLIC (CONGESTIVE) HEART FAILURE (26) Cigarette nicotine dependence Code(s): F17.210 - NICOTINE DEPENDENCE, CIGARETTES, UNCOMPLICATED (27) Coronary artery disease Code(s): I25.10 - ATHSCL HEART DISEASE OF [place] CORONARY ARTERY W/O ANG PCTRS (28) Depression Code(s): F32.9 - MAJOR DEPRESSIVE DISORDER, SINGLE EPISODE, UNSPECIFIED (29) Diabetes Code(s): E11.9 - TYPE 2 DIABETES MELLITUS WITHOUT COMPLICATIONS Qualifiers: Diabetes mellitus type: type 2 Diabetes mellitus complication status: with unspecified complications Diabetes mellitus [facility] insulin use: with [facility] use Qualified Code(s): E11.8 - Type 2 diabetes mellitus with unspecified complications; Z79.4 - intermediate frame tender (current) use of insulin (30) Elevated liver function tests Code(s): R94.5 - ABNORMAL RESULTS OF LIVER FUNCTION STUDIES (31) Fatty liver Code(s): K76.0 - FATTY (CHANGE OF) LIVER, NOT ELSEWHERE CLASSIFIED (32) Hypothyroidism Code(s): E03.9 - HYPOTHYROIDISM, UNSPECIFIED (33) ICD (implantable cardioverter-defibrillator) in place Code(s): Z95.810 - PRESENCE OF AUTOMATIC (IMPLANTABLE) CARDIAC DEFIBRILLATOR (34) Lower extremity edema Code(s): R60.0 - LOCALIZED EDEMA (35) NSVT (nonsustained ventricular tachycardia) Code(s): I47.2 - VENTRICULAR TACHYCARDIA (36) Sleep apnea Code(s): G47.30 - SLEEP APNEA, UNSPECIFIED (37) Tobacco use disorder Code(s): Z72.0 - TOBACCO USE (38) Cardiac cirrhosis Code(s): K76.1 - CHRONIC PASSIVE CONGESTION OF LIVER Assessment/Plan CHF systolic acute hypertension, hyperlipidemia, diabetes mellitus, CAD s/p defibrillator/ pacemaker, CABG, AL, hypothyroidism Plan; agree with IV lasix doubt ACS cont present rx
[2016-11-21] MEDS ORDERED: MAGNESIUM SULF 50% (8.12 MEQ/2 ML-1 GM VIAL) IVPB ONE ×2 (10:15→12:50)
[2016-11-21] MEDS ORDERED: diphenhydrAMINE HCL 25 MG CAPSULE (FP) PO PRN (10:22)
--- NOTE | 2016-11-21 10:22 | PN ---
Physical Exam: SUBJECTIVE: Patient seen and examined af the bedside. She denies pain or shortness of breath. OBJECTIVE: Magnesium 1.5 - magnesium 2 gram ordered K. 2.8 - 3 runs of K riders + [id number] x 1 ordered Vital Signs Period Temp Pulse Resp BP Sys/Santoro Pulse Ox Last 24 Hr 97.7 F-98.4 F 65-75 14-20 102-135/53-62 96 GENERAL: The patient is awake, alert, and fully oriented, in no acute distress. HEAD: Normal with no signs of trauma. EYES: PERRL, extraocular movements intact, sclera anicteric, conjunctiva clear. No ptosis. ENT: Ears normal, nares patent, oropharynx clear without exudates, moist mucous membranes. NECK: Trachea midline, full range of motion, supple. LUNGS: diminished HEART: Regular rate and rhythm, S1, S2 without murmur, rub or gallop. ABDOMEN: Soft, nontender, nondistended, normoactive bowel sounds, no guarding, no rebound, no hepatosplenomegaly, no masses. EXTREMITIES: 2+ pulses, warm, well-perfused, no edema. NEUROLOGICAL: Normal speech, gait not observed. PSYCH: Normal mood, normal affect. SKIN: Warm, dry, normal turgor, no rashes or lesions noted Active Medications Generic Name Dose Route Start Last Admin Trade Name Freq PRN Reason Stop Dose Admin Atorvastatin Calcium 20 mg 11/19/16 22:00 11/20/16 21:48 Lipitor - PO 20 mg HS RINA Administration Clopidogrel Bisulfate 75 mg 11/20/16 10:00 11/21/16 09:23 Plavix - PO 75 mg DAILY RINA Administration Enoxaparin Sodium 40 mg 11/20/16 10:00 11/21/16 09:26 Lovenox - SQ Not Given DAILY RINA Levothyroxine Sodium 75 mcg 11/20/16 07:00 11/21/16 06:00 Synthroid - PO 75 mcg ACBK RINA Administration Lisinopril 5 mg 11/20/16 10:00 11/21/16 09:23 Prinivil PO 5 mg DAILY RINA Administration Metoprolol Succinate 100 mg 11/20/16 10:00 11/21/16 09:23 Toprol Xl - PO 100 mg DAILY RINA Administration ASSESSMENT/PLAN: Patient is a 61 year old female with a significant past medical history of chronic abdominal pain, hyperbilirubinemia, hypertension, hyperlipidemia, diabetes, CAD s/p [place], CABG in 2004 s/p stents, CHF, ICD Pacemaker, COPD, current smoker, hypothyroid & peripheral neuropathy. She presented to the ER on 11/19/2016 with complaints of abdominal pain that radiates up to her chest. Cardiology: Chest Pain Assessment/Plan Troponins negative Has extensive cardiac history On Toprol 100mg daily Denies shortness of breath on exam, tolerating room air Cardiology following CHF exacerbation Assessment/Plan: Given 80mg lasx yesterday Weight today 70.1 kg from 72 kg yesterday Monitor weights, intake and output Hypertension/CABS with stents Assessment/Plan: BP controlled On Toprol X 100mg daily, Lisinopril 5mg PO daily Plavix 75mg daily Has a pacemaker Cardiology following Muscular/Skeletal Peripheral neuropathy - monitor GI: Abdominal Pain - chronic Assessment/Plan: No abdominal pain on exam No nausea/vomiting Monitor labs AST/ALT within normal limits F.E.N. Fluids: tolerating PO Electrolytes: hypokalemia @ 2.8 > 3 K riders, PO potassium x 1 - recheck K today Nutrition: low sodium Prophylaxis: GI: deferred DVT: Lovenox 40mg daily
[2016-11-21 11:43] LABS: BASOPHIL 0.3 % (0-2.0); MCH 26.9 pg (25.7-33.7); MEAN CELL VOLUME 84.2 fl (80-96); MEAN PLT VOLUME 7.8 fl (7.5-11.1); NEUTROPHILS 62.7 % (42.8-82.8); PLATELET COUNT 160 K/MM3 (134-434); RDW 21.9 % (11.6-15.6); WHITE BLOOD COUNT 5.7 K/mm3 (4.0-10.0)
[2016-11-21 12:10] LABS: ALBUMIN 2.8 g/dl (3.4-5.0); ALK PHOS 145 U/L (45-117); ANION GAP 8 (8-16); BILIRUBIN,TOTAL 2.6 mg/dL (0.2-1.0); CALCIUM 8.2 mg/dL (8.5-10.1); CO2 33 mmol/L (21-32); CREATININE 0.9 mg/dL (0.55-1.02); GLUCOSE,RANDOM 85 mg/dL (74-106); SGOT/AST 29 U/L (15-37); SGPT/ALT 15 U/L (12-78); TOT PROT 6.3 g/dl (6.4-8.2)
[2016-11-21 12:28] LABS: MAGNESIUM 1.5 mg/dL (1.8-2.4)
[2016-11-21] MEDS: KCL 10 MEQ IVPB 100 ML IVPB SCH ×3 (12:44→18:42)
[2016-11-21] MEDS ORDERED: POTASSIUM CHLORIDE ORAL LIQUID 20 MEQ/15 ML PO ONE (13:00)
[2016-11-21] MEDS ORDERED: MAGNESIUM SULF 50% (8.12 MEQ/2 ML-1 GM VIAL) ONE (15:15)
[2016-11-21] MEDS ORDERED: POTASSIUM CHLORIDE TABS 20 MEQ TABLET.ER (FP) PO ONE ×3 (16:02→22:15)
[2016-11-21] MEDS: ATORVASTATIN CA 20 MG TABLET (FP) PO SCH (21:25)
[2016-11-22 06:52] LABS: BASOPHIL 0.4 % (0-2.0); MCH 26.8 pg (25.7-33.7); MCHC 31.7 g/dl (32.0-36.0); MEAN CELL VOLUME 84.4 fl (80-96); MEAN PLT VOLUME 8.3 fl (7.5-11.1); NEUTROPHILS 56.6 % (42.8-82.8); PLATELET COUNT 150 K/MM3 (134-434); RDW 22.7 % (11.6-15.6); WHITE BLOOD COUNT 5.4 K/mm3 (4.0-10.0)
[2016-11-22] MEDS: LEVOTHYROXINE NA 75 MCG TABLET (FP) PO SCH (07:10)
[2016-11-22 07:52] LABS: ALBUMIN 3.2 g/dl (3.4-5.0); ANION GAP 12 (8-16); BILIRUBIN,TOTAL 2.7 mg/dL (0.2-1.0); CALCIUM 8.7 mg/dL (8.5-10.1); CO2 29 mmol/L (21-32); CREATININE 1.2 mg/dL (0.55-1.02); GLUCOSE,RANDOM 69 mg/dL (74-106); SGOT/AST 39 U/L (15-37); SGPT/ALT 19 U/L (12-78); TOT PROT 7.2 g/dl (6.4-8.2)
[2016-11-22 07:53] LABS: ALK PHOS 167 U/L (45-117)
[2016-11-22 09:22] LABS: MAGNESIUM 2.2 mg/dL (1.8-2.4)
--- NOTE | 2016-11-22 10:00 | PN ---
Physical Exam: SUBJECTIVE: Patient seen and examined. She denies chest pain or discomfort. OBJECTIVE: K now 3.7 after K supplementations yesterday Mag 2.2 Will add Potassium 40meq daily and monitor Had episode vtach overnight Vital Signs Period Temp Pulse Resp BP Sys/Santoro Pulse Ox Last 24 Hr 97.0 F-98.0 F 63-69 18-20 90-106/53-71 94 GENERAL: The patient is awake, alert, and fully oriented, in no acute distress. HEAD: Normal with no signs of trauma. EYES: PERRL, extraocular movements intact, sclera anicteric, conjunctiva clear. No ptosis. ENT: Ears normal, nares patent, oropharynx clear without exudates, moist mucous membranes. NECK: Trachea midline, full range of motion, supple. LUNGS: diminished bilaterally HEART: Regular rate and rhythm, S1, S2 without murmur, rub or gallop. ABDOMEN: Soft, nontender, nondistended, normoactive bowel sounds, no guarding, no rebound, no hepatosplenomegaly, no masses. EXTREMITIES: 2+ pulses, warm, well-perfused, no edema. NEUROLOGICAL: Normal speech, gait not observed. PSYCH: Normal mood, normal affect. SKIN: Warm, dry, normal turgor, no rashes or lesions noted Laboratory Results - last 24 hr 11/21/16 11/21/16 11/21/16 11:25 11:25 18:30 WBC 5.7 RBC 4.54 Hgb 12.2 Hct 38.3 MCV 84.2 MCHC 32.0 RDW 21.9 H Plt Count 160 MPV 7.8 Neutrophils % 62.7 Lymphocytes % 21.0 Monocytes % 16.0 H Eosinophils % 0.0 Basophils % 0.3 Sodium 139 Potassium 2.8 L* D 2.9 L* Chloride 98 Carbon Dioxide 33 H Anion Gap 8 BUN 14 Creatinine 0.9 Creat Clearance w eGFR > 60 Random Glucose 85 D Calcium 8.2 L Magnesium 1.5 L Total Bilirubin 2.6 H D AST 29 D ALT 15 Alkaline Phosphatase 145 H Total Protein 6.3 L Albumin 2.8 L 11/22/16 11/22/16 11/22/16 05:35 05:35 05:35 WBC 5.4 RBC 4.78 Hgb 12.8 Hct 40.3 MCV 84.4 MCHC 31.7 L RDW 22.7 H Plt Count 150 MPV 8.3 Neutrophils % 56.6 Lymphocytes % 29.2 D Monocytes % 13.8 H Eosinophils % 0.0 Basophils % 0.4 Sodium 138 Potassium 3.7 D Chloride 97 L Carbon Dioxide 29 Anion Gap 12 BUN 21 H D Creatinine 1.2 H D Creat Clearance w eGFR 45.37 Random Glucose 69 L Calcium 8.7 Magnesium 2.2 D Cancelled Total Bilirubin 2.7 H AST 39 H D ALT 19 D Alkaline Phosphatase 167 H Total Protein 7.2 Albumin 3.2 L Active Medications Generic Name Dose Route Start Last Admin Trade Name Freq PRN Reason Stop Dose Admin Atorvastatin Calcium 20 mg 11/19/16 22:00 11/21/16 21:25 Lipitor - PO 20 mg HS RINA Administration Clopidogrel Bisulfate 75 mg 11/20/16 10:00 11/21/16 09:23 Plavix - PO 75 mg DAILY RINA Administration Diphenhydramine HCl 25 mg 11/21/16 10:22 Benadryl - PO Q6H PRN FOR ITCHING Enoxaparin Sodium 40 mg 11/20/16 10:00 11/21/16 09:26 Lovenox - SQ Not Given DAILY RINA Levothyroxine Sodium 75 mcg 11/20/16 07:00 11/22/16 07:10 Synthroid - PO 75 mcg ACBK RINA Administration Lisinopril 5 mg 11/20/16 10:00 11/21/16 09:23 Prinivil PO 5 mg DAILY RINA Administration Metoprolol Succinate 100 mg 11/20/16 10:00 11/21/16 09:23 Toprol Xl - PO 100 mg DAILY RINA Administration Potassium Chloride 40 meq 11/22/16 10:00 K-Dur - PO DAILY RINA ASSESSMENT/PLAN: Patient is a 61 year old female with a significant past medical history of chronic abdominal pain, hyperbilirubinemia, hypertension, hyperlipidemia, diabetes, CAD s/p CT, CABG in 2004 s/p stents, CHF, ICD Pacemaker, COPD, current smoker, hypothyroid & peripheral neuropathy. She presented to the ER on 11/19/2016 with complaints of abdominal pain that radiates up to her chest. Cardiology: Chest Pain Assessment/Plan Troponins negative Has extensive cardiac history On Toprol 100mg daily Denies shortness of breath on exam, tolerating room air Cardiology following CHF exacerbation Assessment/Plan: Given 80mg lasx yesterday Monitor weights, intake and output Hypertension/CABS with stents Assessment/Plan: BP controlled On Toprol X 100mg daily, Lisinopril 5mg PO daily Plavix 75mg daily Has a pacemaker Cardiology following Muscular/Skeletal Peripheral neuropathy - monitor GI: Abdominal Pain - chronic Assessment/Plan: No abdominal pain on exam No nausea/vomiting Monitor labs AST/ALT within normal limits F.E.N. Fluids: tolerating PO Electrolytes: hypokalemia resolved Nutrition: low sodium Prophylaxis: GI: deferred DVT: Lovenox 40mg daily Visit type - Emergency Visit Emergency Visit: Yes ED Registration Date: 11/20/16 Care time: The patient presented to the Emergency Department on the above date and was hospitalized for further evaluation of their emergent condition. - New Patient This patient is new to me today: No - Critical Care Critical Care patient: No - Discharge Referral Referred to [facility] Med [facility] No
[2016-11-22] MEDS: POTASSIUM CHLORIDE TABS 20 MEQ TABLET.ER (FP) PO SCH (10:03)
[2016-11-22] MEDS: LISINOPRIL 5 MG TABLET (FP) PO SCH (10:04)
[2016-11-22] MEDS: CLOPIDOGREL BISULFATE 75 MG TABLET (FP) PO SCH (10:04)
[2016-11-22] MEDS: ENOXAPARIN NA (PORCINE) 40 MG/0.4 ML DISP.SYRIN SQ SCH (10:05)
[2016-11-22] MEDS: METOPROLOL SUCCINATE 100 MG TAB.SR.24H (FP) PO SCH (10:05)
--- NOTE | 2016-11-22 10:26 | PN ---
Progress Note, Physician History of Present Illness: The patient is a 61 year old female with past medical history of hypertension, hyperlipidemia, diabetes mellitus, CAD s/p defibrillator/ pacemaker, CABG, DC, CHF, hypothyroidism who presents to the ED with complaints of of abdominal pain for the past three days. The patient states that the pain radiates to her chest. The patient also reports mild shortness of breath with exertion as well as bilateral lower extremity edema and generalized pain "all over her body", which she says is normal for her. Last month the patient was admitted for abdominal pain and was being evaluated for autoimmune hepatitis. While admitted , the patient was found to have Group B strep bacteremia. The patient signed out AMA and was discharged on a course of antibiotics. In the ED, the patient states she recently finished her course of antibiotics. She reports she does not know any of her medications and implies overall noncompliance. - Current Medication List Current Medications: Active Medications Atorvastatin Calcium (Lipitor -) 20 mg PO HS [facility] Last Admin: 11/21/16 21:25 Dose: 20 mg Clopidogrel Bisulfate (Plavix -) 75 mg PO DAILY [facility] Last Admin: 11/22/16 10:04 Dose: 75 mg Diphenhydramine HCl (Benadryl -) 25 mg PO Q6H PRN PRN Reason: FOR ITCHING Enoxaparin Sodium (Lovenox -) 40 mg SQ DAILY [facility] Last Admin: 11/22/16 10:05 Dose: Not Given Levothyroxine Sodium (Synthroid -) 75 mcg PO ACBK [facility] Last Admin: 11/22/16 07:10 Dose: 75 mcg Lisinopril (Prinivil) 5 mg PO DAILY [facility] Last Admin: 11/22/16 10:04 Dose: 5 mg Metoprolol Succinate (Toprol Xl -) 100 mg PO DAILY [facility] Last Admin: 11/22/16 10:05 Dose: 100 mg Potassium Chloride (K-Dur -) 40 meq PO DAILY [facility] Last Admin: 11/22/16 10:03 Dose: 40 meq - Objective Vital Signs: Vital Signs Temperature 97.3 F L 11/22/16 08:33 Pulse Rate 66 11/22/16 08:33 Respiratory Rate 20 11/22/16 08:33 Blood Pressure 106/64 11/22/16 08:33 O2 Sat by Pulse Oximetry (%) 94 L 11/21/16 20:43 Eyes: Yes: WNL, Conjunctiva Clear, EOM Intact HENT: Yes: WNL, Atraumatic, Normocephalic Neck: Yes: WNL, Supple, Trachea Midline Cardiovascular: Yes: WNL, Regular Rate and Rhythm Respiratory: Yes: WNL, Regular, CTA Bilaterally Gastrointestinal: Yes: WNL, Normal Bowel Sounds Genitourinary: Yes: WNL Musculoskeletal: Yes: WNL Extremities: Yes: WNL Edema: No Integumentary: Yes: WNL Neurological: Yes: WNL, Alert, Oriented ...Motor Strength: WNL Psychiatric: Yes: WNL Labs: CBC, BMP 11/22/16 05:35 11/22/16 05:35 INR, PTT INR 2.21 (0.82-1.09) H 11/19/16 10:10 Problem List - Problems (1) CHF exacerbation Code(s): I50.9 - HEART FAILURE, UNSPECIFIED Qualifiers: Congestive heart failure type: combined Qualified Code(s): I50.43 - Acute on chronic combined systolic (congestive) and diastolic (congestive) heart failure (2) Chest pain of uncertain etiology Code(s): R07.89 - OTHER CHEST PAIN (3) Abdominal pain, diffuse Code(s): R10.84 - GENERALIZED ABDOMINAL PAIN (4) Acute combined systolic and diastolic ACC/AHA stage C congestive heart failure Code(s): I50.41 - ACUTE COMBINED SYSTOLIC AND DIASTOLIC (CONGESTIVE) HRT FAIL (5) Chest pain Code(s): R07.9 - CHEST PAIN, UNSPECIFIED Qualifiers: Chest pain type: unspecified Qualified Code(s): R07.9 - Chest pain, unspecified (6) Dyspepsia Code(s): K30 - FUNCTIONAL DYSPEPSIA (7) Elevated troponin Code(s): R74.8 - ABNORMAL LEVELS OF OTHER SERUM ENZYMES (8) Hyperbilirubinemia Code(s): E80.6 - OTHER DISORDERS OF BILIRUBIN METABOLISM (9) Hyperlipidemia Code(s): E78.5 - HYPERLIPIDEMIA, UNSPECIFIED (10) Hypertension Code(s): I10 - ESSENTIAL (PRIMARY) HYPERTENSION (11) Noncompliance with medication regimen Code(s): Z91.14 - PATIENT'S OTHER NONCOMPLIANCE WITH MEDICATION REGIMEN (12) Peripheral neuropathy Code(s): G62.9 - POLYNEUROPATHY, UNSPECIFIED Qualifiers: Peripheral neuropathy type: polyneuropathy, unspecified Qualified Code( s): G62.9 - Polyneuropathy, unspecified (14) Sphincter of Oddi dysfunction Code(s): K83.4 - SPASM OF SPHINCTER OF ODDI (15) Status post THR (total hip replacement) Code(s): Z96.649 - PRESENCE OF UNSPECIFIED ARTIFICIAL HIP JOINT (16) Transaminitis Code(s): R74.0 - NONSPEC ELEV OF LEVELS OF TRANSAMNS & LACTIC ACID DEHYDRGNSE (17) Postoperative abdominal pain Code(s): R10.9 - UNSPECIFIED ABDOMINAL PAIN G89.18 - OTHER ACUTE POSTPROCEDURAL PAIN (18) LIANNA (acute kidney injury) Code(s): N17.9 - ACUTE KIDNEY FAILURE, UNSPECIFIED (19) Bacteremia Code(s): R78.81 - BACTEREMIA (20) Hypokalemia Code(s): E87.6 - HYPOKALEMIA (21) Sepsis Code(s): A41.9 - SEPSIS, UNSPECIFIED ORGANISM (22) Abdominal pain Code(s): R10.9 - UNSPECIFIED ABDOMINAL PAIN (23) Acute on chronic systolic and diastolic heart failure, NYHA class 1 Code(s): I50.43 - ACUTE ON CHRONIC COMBINED SYSTOLIC AND DIASTOLIC HRT FAIL (24) CHF (congestive heart failure) Code(s): I50.9 - HEART FAILURE, UNSPECIFIED (25) Chronic systolic congestive heart failure Code(s): I50.22 - CHRONIC SYSTOLIC (CONGESTIVE) HEART FAILURE (26) Cigarette nicotine dependence Code(s): F17.210 - NICOTINE DEPENDENCE, CIGARETTES, UNCOMPLICATED (27) Coronary artery disease Code(s): I25.10 - ATHSCL HEART DISEASE OF [place] CORONARY ARTERY W/O ANG PCTRS (28) Depression Code(s): F32.9 - MAJOR DEPRESSIVE DISORDER, SINGLE EPISODE, UNSPECIFIED (29) Diabetes Code(s): E11.9 - TYPE 2 DIABETES MELLITUS WITHOUT COMPLICATIONS Qualifiers: Diabetes mellitus type: type 2 Diabetes mellitus complication status: with unspecified complications Diabetes mellitus manager terminal insulin use: with manager terminal use Qualified Code(s): E11.8 - Type 2 diabetes mellitus with unspecified complications; Z79.4 - intermediate project manager (current) use of insulin (30) Elevated liver function tests Code(s): R94.5 - ABNORMAL RESULTS OF LIVER FUNCTION STUDIES (31) Fatty liver Code(s): K76.0 - FATTY (CHANGE OF) LIVER, NOT ELSEWHERE CLASSIFIED (32) Hypothyroidism Code(s): E03.9 - HYPOTHYROIDISM, UNSPECIFIED (33) ICD (implantable cardioverter-defibrillator) in place Code(s): Z95.810 - PRESENCE OF AUTOMATIC (IMPLANTABLE) CARDIAC DEFIBRILLATOR (34) Lower extremity edema Code(s): R60.0 - LOCALIZED EDEMA (35) NSVT (nonsustained ventricular tachycardia) Code(s): I47.2 - VENTRICULAR TACHYCARDIA (36) Sleep apnea Code(s): G47.30 - SLEEP APNEA, UNSPECIFIED (37) Tobacco use disorder Code(s): Z72.0 - TOBACCO USE (38) Cardiac cirrhosis Code(s): K76.1 - CHRONIC PASSIVE CONGESTION OF LIVER Assessment/Plan CHF systolic acute hypertension, hyperlipidemia, diabetes mellitus, CAD s/p defibrillator/ pacemaker, CABG, DC, hypothyroidism nsvt Plan; agree with IV lasix doubt ACS cont present rx
[2016-11-22] MEDS: ATORVASTATIN CA 20 MG TABLET (FP) PO SCH (21:44)
[2016-11-23] MEDS: LEVOTHYROXINE NA 75 MCG TABLET (FP) PO SCH (06:14)
[2016-11-23 07:29] LABS: BASOPHIL 0.5 % (0-2.0); MCH 26.8 pg (25.7-33.7); MCHC 31.8 g/dl (32.0-36.0); MEAN CELL VOLUME 84.4 fl (80-96); MEAN PLT VOLUME 8.5 fl (7.5-11.1); PLATELET COUNT 144 K/MM3 (134-434); RDW 22.4 % (11.6-15.6); WHITE BLOOD COUNT 6.3 K/mm3 (4.0-10.0)
[2016-11-23 08:10] LABS: ALBUMIN 3.1 g/dl (3.4-5.0); ALK PHOS 160 U/L (45-117); ANION GAP 10 (8-16); CALCIUM 8.8 mg/dL (8.5-10.1); CO2 31 mmol/L (21-32); CREATININE 0.9 mg/dL (0.55-1.02); GLUCOSE,RANDOM 65 mg/dL (74-106); SGOT/AST 39 U/L (15-37); SGPT/ALT 19 U/L (12-78); TOT PROT 6.7 g/dl (6.4-8.2)
[2016-11-23] MEDS: POTASSIUM CHLORIDE TABS 20 MEQ TABLET.ER (FP) PO SCH (09:48)
[2016-11-23] MEDS: CLOPIDOGREL BISULFATE 75 MG TABLET (FP) PO SCH (09:48)
[2016-11-23] MEDS: METOPROLOL SUCCINATE 100 MG TAB.SR.24H (FP) PO SCH (09:48)
[2016-11-23] MEDS: ENOXAPARIN NA (PORCINE) 40 MG/0.4 ML DISP.SYRIN SQ SCH (09:48)
[2016-11-23] MEDS: LISINOPRIL 5 MG TABLET (FP) PO SCH (09:48)
--- NOTE | 2016-11-23 12:14 | PN ---
Progress Note, Physician Chief Complaint: Pt sitting up at bedside; asymptomatic. History of Present Illness: The patient is a 61 year old black female with past medical history of hypertension, hyperlipidemia, diabetes mellitus, CAD s/p defibrillator/ pacemaker, CABG, [place], CHF, hypothyroidism who presents to the ED with complaints of of abdominal pain for the past three days. The patient states that the pain radiates to her chest. The patient also reports mild shortness of breath with exertion as well as bilateral lower extremity edema and generalized pain "all over her body", which she says is normal for her. Last month the patient was admitted for abdominal pain and was being evaluated for autoimmune hepatitis. While admitted, the patient was found to have Group B strep bacteremia. The patient signed out AMA and was discharged on a course of antibiotics. In the ED , the patient states she recently finished her course of antibiotics. She reports she does not know any of her medications and implies overall noncompliance. Social Hx: Cigarette smoker +40 years - Current Medication List Current Medications: Active Medications Atorvastatin Calcium (Lipitor -) [address] [facility] Last Admin: 11/22/16 21:44 Dose: 20 mg Clopidogrel Bisulfate (Plavix -) [address] [facility] Last Admin: 11/23/16 09:48 Dose: 75 mg Diphenhydramine HCl (Benadryl -) 25 mg PO Q6H PRN PRN Reason: FOR ITCHING Enoxaparin Sodium (Lovenox -) [address] [facility] Last Admin: 11/23/16 09:48 Dose: 40 mg Levothyroxine Sodium (Synthroid -) [address] [facility] Last Admin: 11/23/16 06:14 Dose: 75 mcg Lisinopril (Prinivil) [address] [facility] Last Admin: 11/23/16 09:48 Dose: 5 mg Metoprolol Succinate (Toprol Xl -) [address] [facility] Last Admin: 11/23/16 09:48 Dose: 100 mg Potassium Chloride (K-Dur -) [address] [facility] Last Admin: 11/23/16 09:48 Dose: 40 meq - Objective Vital Signs: Vital Signs Temperature 98.2 F 11/23/16 08:10 Pulse Rate 74 11/23/16 08:10 Respiratory Rate 16 11/23/16 08:10 Blood Pressure 128/78 11/23/16 08:10 O2 Sat by Pulse Oximetry (%) 96 11/23/16 09:00 Constitutional: Yes: No Distress Eyes: Yes: WNL HENT: Yes: Pharyngeal Erythema Neck: Yes: WNL Cardiovascular: Yes: Regular Rate and Rhythm Respiratory: Yes: Regular Gastrointestinal: Yes: Soft ...Rectal Exam: Yes: Deferred Genitourinary: No: Anuria Breast(s): Yes: WNL Musculoskeletal: Yes: Joint Stiffness Extremities: Yes: Cool Edema: No Peripheral Pulses WNL: No Peripheral Pulses: Left Doralis Pedis: 1+, Right Dorsalis Pedis: 1+ Integumentary: Yes: WNL Neurological: Yes: Alert, Oriented Psychiatric: Yes: Alert, Oriented Labs: CBC, BMP 11/23/16 05:35 11/23/16 05:35 INR, PTT INR 2.21 (0.82-1.09) H 11/19/16 10:10 Abnormal Lab Results 11/23/16 11/23/16 05:35 05:35 MCHC 31.8 L RDW 22.4 H Monocytes % 13.7 H Sodium 135 L Chloride 94 L BUN 25 H Random Glucose 65 L Total Bilirubin 3.0 H AST 39 H Alkaline Phosphatase 160 H Albumin 3.1 L - ....Imaging Other: Image Reviewed (telemetry: NSR; occasional ventricular paced rhythm) Problem List - Problems (1) Acute combined systolic and diastolic ACC/AHA stage C congestive heart failure Assessment/Plan: stable heart failure today. From cardiac standpoint, pt may be followed as an outpatient. She has been taught to use furosemide depending on symptoms, weight, leg swelling (or lack of); she will take KCL and Mg on days she takes furosemide. F/u with PMD; f/u in our office in 2-3 weeks. Continue daily exercise (at home, she often walks 1/2 mile or more daily). Code(s): I50.41 - ACUTE COMBINED SYSTOLIC AND DIASTOLIC (CONGESTIVE) HRT FAIL (2) Dyspepsia Code(s): K30 - FUNCTIONAL DYSPEPSIA (3) Elevated troponin Code(s): R74.8 - ABNORMAL LEVELS OF OTHER SERUM ENZYMES (4) Hyperbilirubinemia Code(s): E80.6 - OTHER DISORDERS OF BILIRUBIN METABOLISM (5) Hyperlipidemia Code(s): E78.5 - HYPERLIPIDEMIA, UNSPECIFIED (6) Hypertension Code(s): I10 - ESSENTIAL (PRIMARY) HYPERTENSION (7) Peripheral neuropathy Code(s): G62.9 - POLYNEUROPATHY, UNSPECIFIED Qualifiers: Peripheral neuropathy type: polyneuropathy, unspecified Qualified Code( s): G62.9 - Polyneuropathy, unspecified (8) Sphincter of Oddi dysfunction Code(s): K83.4 - SPASM OF SPHINCTER OF ODDI (9) Status post THR (total hip replacement) Code(s): Z96.649 - PRESENCE OF UNSPECIFIED ARTIFICIAL HIP JOINT (10) Postoperative abdominal pain Code(s): R10.9 - UNSPECIFIED ABDOMINAL PAIN G89.18 - OTHER ACUTE POSTPROCEDURAL PAIN (11) Hypokalemia Code(s): E87.6 - HYPOKALEMIA (12) Depression Code(s): F32.9 - MAJOR DEPRESSIVE DISORDER, SINGLE EPISODE, UNSPECIFIED (13) Diabetes Code(s): E11.9 - TYPE 2 DIABETES MELLITUS WITHOUT COMPLICATIONS Qualifiers: Diabetes mellitus type: type 2 Diabetes mellitus complication status: with unspecified complications Diabetes mellitus senior living insulin use: with 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 Brief run of NSVT noted earlier this admission; continue beta blockers, ACEI, spironolactone; keep electrolytes WNL. Code(s): Z95.810 - PRESENCE OF AUTOMATIC (IMPLANTABLE) CARDIAC DEFIBRILLATOR
--- NOTE | 2016-11-23 12:51 | DS ---
Physical Exam: SUBJECTIVE: Patient seen and examined. States she feels well. Denies shortness of breath or chest pain. OBJECTIVE: Not a candidate for home oxygen: saturations 98% with ambulation, no dyspnea Vital Signs Period Temp Pulse Resp BP Sys/Santoro Pulse Ox Last 24 Hr 97.5 F-9797.8 F 62-74 16-72 110-132/66-82 96-96 PHYSICAL EXAM GENERAL: The patient is awake, alert, and fully oriented, in no acute distress. HEAD: Normal with no signs of trauma. EYES: PERRL, extraocular movements intact, sclera anicteric, conjunctiva clear. ENT: Ears normal, nares patent, oropharynx clear without exudates, moist mucous membranes. NECK: Trachea midline, full range of motion, supple. LUNGS: Breath sounds equal, clear to auscultation bilaterally, no wheezes, no crackles, no accessory muscle use. HEART: Regular rate and rhythm, S1, S2 without murmur, rub or gallop. ABDOMEN: Soft, nontender, nondistended, normoactive bowel sounds, no guarding, no rebound, no hepatosplenomegaly, no masses. EXTREMITIES: 2+ pulses, warm, well-perfused, no edema. NEUROLOGICAL: Cranial nerves II through XII grossly intact. Normal speech, gait not observed. PSYCH: Normal mood, normal affect. SKIN: Warm, dry, normal turgor, no rashes or lesions noted. LABS Laboratory Results - last 24 hr 11/23/16 11/23/16 05:35 05:35 WBC 6.3 RBC 4.66 Hgb 12.5 Hct 39.3 MCV 84.4 MCHC 31.8 L RDW 22.4 H Plt Count 144 MPV 8.5 Neutrophils % 63.0 Lymphocytes % 22.8 D Monocytes % 13.7 H Eosinophils % 0.0 Basophils % 0.5 Sodium 135 L Potassium 3.8 Chloride 94 L Carbon Dioxide 31 Anion Gap 10 BUN 25 H Creatinine 0.9 D Creat Clearance w eGFR > 60 Random Glucose 65 L Calcium 8.8 Total Bilirubin 3.0 H AST 39 H ALT 19 Alkaline Phosphatase 160 H Total Protein 6.7 Albumin 3.1 L HOSPITAL COURSE: Date of Admission:11/20/16 Date of Discharge: 11/23/16 ASSESSMENT/PLAN: Patient is a 61 year old female with a significant past medical history of chronic abdominal pain, hyperbilirubinemia, hypertension, hyperlipidemia, diabetes, CAD s/p CT, CABG in 2004 s/p stents, CHF, ICD Pacemaker, COPD, current smoker, hypothyroid & peripheral neuropathy. She presented to the ER on 11/19/2016 with complaints of abdominal pain that radiates up to her chest. Cardiology: Chest Pain - resolved Assessment/Plan Troponins negative Has extensive cardiac history EKG 11/19/16 shows ESR with no specifiic intra vent. cond block, non specific t wave abnormality when compared with EKG of 10/11/16 PVCs no longer seen On Toprol 100mg daily Denies shortness of breath on exam, tolerating room air, pre and post respiratory status stable on room air Cardiology cleared pt for d/c with outpatient follow up in 2 - 3 weeks CHF exacerbation - chronic Assessment/Plan: Home Lasix as needed depending on symptoms such as weight gain or leg edema. She was instructed to take KCL and Magnesium if she takes the Lasix at home. Pt to monitor weights daily Hypertension/CABS with stents Assessment/Plan: BP controlled On Toprol X 100mg daily, Lisinopril 5mg PO daily Plavix 75mg daily Has a pacemaker Cardiology following Muscular/Skeletal Peripheral neuropathy - monitor GI: Abdominal Pain - chronic Assessment/Plan: No abdominal pain on exam No nausea/vomiting, tolerating meals Disposition: Discharge home today with close cardiology follow up as an outpatient. Minutes to complete discharge: 60 Discharge Summary Reason For Visit: CHF EXACERBATION PERIFERAL NEUROPATHY Current Active Problems CHF exacerbation (Acute) Chest pain of uncertain etiology (Acute) Abdominal pain, diffuse (Chronic) Acute combined systolic and diastolic ACC/AHA stage C congestive heart failure ( Chronic) Chest pain (Chronic) Dyspepsia (Chronic) Elevated troponin (Chronic) Hyperbilirubinemia (Chronic) Hyperlipidemia (Chronic) Hypertension (Chronic) Noncompliance with medication regimen (Chronic) Peripheral neuropathy (Chronic) Restless leg syndrome (Chronic) Sphincter of Oddi dysfunction (Chronic) Status post THR (total hip replacement) (Chronic) Transaminitis (Chronic) Condition: Improved - Instructions Diet, Activity, Other Instructions: Mrs. Álvaro Prado: Please see your Dr. Cage within 2 - 3 weeks after discharge. Take the Lasix as directed by your health and safety coordinator and monitor your weights daily. When taking the Lasix, please also take the Potassium and Magnesium supplements as well. Please return to the ER with any new or worsening symptoms. Please call with any questions that you may have. Lyubov Garcia [place] [employer] [phone] Referrals: Ashley Rueda MD [Primary Care Provider] - Dick Cage MD [Staff Physician] - Disposition: HOME - Home Medications Comprehensive Discharge Medication List: Ambulatory Orders Calamine 8% Topical Lotion - 1 applic TP BID PRN #0 bottle 08/04/16 Clopidogrel Bisulfate [Plavix -] 75 mg PO DAILY #30 tablet 08/04/16 Levothyroxine [Synthroid -] 75 mcg PO DAILY #30 tab 08/04/16 Mineral Oil/Petrolat,Wht/Water [Eucerin (Large Jar) -] 1 applic TP DAILY PRN #0 jar 08/04/16 Spironolactone 50 mg PO DAILY #30 tablet 08/04/16 Furosemide [Lasix -] 80 mg PO BID #60 tablet 08/27/16 Potassium Chloride 20 meq PO DAILY #30 tab 08/27/16 Atorvastatin Ca [Lipitor] 20 mg PO HS 09/08/16 Lisinopril [Prinivil] 5 mg PO DAILY #30 tablet 09/14/16 Diphenhydramine HCl [Benadryl Capsule -] 25 mg PO Q6H PRN #0 tab 11/23/16 Magnesium Oxide [Mag-Ox -] 400 mg PO DAILY #30 tablet 11/23/16 Metoprolol Succinate [Toprol Xl] 100 mg PO DAILY #30 tab.er.24h 11/23/16 This patient is new to me today: No Emergency Visit: Yes ED Registration Date: 11/20/16 Care time: The patient presented to the Emergency Department on the above date and was hospitalized for further evaluation of their emergent condition. Critical Care patient: No - Discharge Referral Referred to [facility] Med P.C.: No
[2016-11-23 13:24] VITALS: BP 131/77; TEMP 98.1
[2016-11-23 13:35] VITALS: PULSE 73
[2016-11-23] MEDS ORDERED: MAGNESIUM OXIDE 400 MG TABLET (FP) PO SCH (14:00)
== END 2016-11-23 15:13 | disposition home or self-care (01) | DRG 292 ==
LOC: JER 09:09 → JERBED 18:56 → J4W 20:42 → OBSVTOIN 11-20 16:06
PROVIDERS: ADMIT Internal Medicine; ATTEND Nurse Practitioner Family
DX: I11.0 Hypertensive heart disease with heart failure (principal); I47.1 Supraventricular tachycardia; F17.210 Nicotine dependence, cigarettes, uncomplicated; R07.89 Other chest pain; I25.119 Atherosclerotic heart disease of native coronary artery with unspecified angina pectoris; Z95.1 Presence of aortocoronary bypass graft; E03.9 Hypothyroidism, unspecified; G62.9 Polyneuropathy, unspecified; E78.5 Hyperlipidemia, unspecified; Z91.14 Patient's other noncompliance with medication regimen; E11.9 Type 2 diabetes mellitus without complications; Z95.0 Presence of cardiac pacemaker; R10.9 Unspecified abdominal pain; E87.6 Hypokalemia; I50.23 Acute on chronic systolic (congestive) heart failure
CPT/HCPCS: 36415; 36600; 71010-TC; 74176-TC; 80053; 82375; 82550; 82553; 82803; 83050; 83605; 83735; 83880; 84100; 84132; 84484; 85025; 85610; 87040; 93005; 93010; 93970-TC; 94761; 99284-25; G0378

== ENCOUNTER 2016-12-04 15:04 | Inpatient (IN) | payer OTHER, BC ==
--- NOTE | 2016-12-04 16:06 | PDOC ---
History of Present Illness - General Chief Complaint: Chest Pain Stated Complaint: CHEST PAIN Time Seen by Provider: 12/04/16 16:00 History Source: Patient Exam Limitations: No Limitations - History of Present Illness Initial Comments: 12/04/16 16:36 Patient is a 61-year-old female with past medical history of hypertension, hyperlipidemia, diabetes, CAD status post SD 2003, CABG in 2003 with stents, systolic CHF status post ICD pacemaker, COPD current smoker, hypothyroid is some presents to the emergency department today for chest pain and shortness of breath. 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 She said the pain at that time was a 6 out of 10. So she presented to the emergency department for further evaluation. Currently she states that her pain is much better at the 1 out of 10 now that she has had time to rest she states she is not short of breath at this time. Admits to shortness of breath with exertion and foot pain. Impression states she is also put on approximately 10 pounds in 2 weeks and states that both of her legs have become very swollen. Denies palpitations, chest tightness, wheezing, fevers, chills, malaise, nausea, vomiting, diarrhea, recent travel. Past History - Travel Traveled outside of the country in the last 30 days: No Close contact w/someone who was outside of country & ill: No - Past Medical History Allergies/Adverse Reactions: Allergies Allergy/AdvReac Type Severity Reaction Status Date / Time aspirin Allergy Mild Rash Verified 12/04/16 15:17 banana Allergy Hives Verified 12/04/16 15:17 tomato Allergy Verified 12/04/16 15:17 Home Medications: Ambulatory Orders Calamine 8% Topical Lotion - 1 applic TP BID PRN #0 bottle 08/04/16 Clopidogrel Bisulfate [Plavix -] 75 mg PO DAILY #30 tablet 08/04/16 Levothyroxine [Synthroid -] 75 mcg PO DAILY #30 tab 08/04/16 Mineral Oil/Petrolat,Wht/Water [Eucerin (Large Jar) -] 1 applic TP DAILY PRN #0 jar 08/04/16 Spironolactone 50 mg PO DAILY #30 tablet 08/04/16 Furosemide [Lasix -] 80 mg PO BID #60 tablet 04/09/17 Potassium Chloride 20 meq PO DAILY #30 tab 08/27/16 Atorvastatin Ca [Lipitor] 20 mg PO HS 09/08/16 Lisinopril [Prinivil] 5 mg PO DAILY #30 tablet 09/14/16 Diphenhydramine HCl [Benadryl Capsule -] 25 mg PO Q6H PRN #0 tab 11/23/16 Magnesium Oxide [Mag-Ox -] 400 mg PO DAILY #30 tablet 11/23/16 Metoprolol Succinate [Toprol Xl] 100 mg PO DAILY #30 tab.er.24h 11/23/16 Anemia: No Asthma: Yes Cancer: No Cardiac Disorders: Yes (Stents, PM/Defib, STEMI, SYSTOLIC CHF,PULM HTN) CVA: No COPD: No CHF: Yes Dementia: No Diabetes: Yes GI Disorders: Yes Disorders: No HTN: Yes Hypercholesterolemia: Yes Kidney Stones: Yes Liver Disease: Yes Psychiatric Problems: Yes (depression.) Suicide Attempt (Hx): No Seizures: No Thyroid Disease: Yes (Hypo) - Surgical History Abdominal Surgery: Yes (hx of peg tube.) Appendectomy: No Cardiac Surgery: Yes (bypass,stent x2, CABG 2003, ICD/Pacer 15) Cholecystectomy: Yes (04/2016) Lung Surgery: (cabg 2003) Neurologic Surgery: No Orthopedic Surgery: Yes (Right THR) - Immunization History Immunization Up to Date: Yes - Psycho/Social/Smoking Cessation Hx Anxiety: No Suicidal Ideation: No Smoking Status: No Smoking History: Never smoked Have you smoked in the past 12 months: Yes Number of Cigarettes Smoked Daily: 5 Information on smoking cessation initiated: No 'Breaking Loose' booklet given: 10/12/16 Hx Alcohol Use: No Drug/Substance Use Hx: No Substance Use Type: None Hx Substance Use Treatment: No Review of Systems - Review of Systems Able to Perform ROS?: Yes Is the patient limited Maldivian proficient: No Constitutional: Yes: Other (weight gain). No: Chills, Fever, Weakness Cardiac (ROS): Yes: Chest Pain, Edema. No: Lightheadedness, Palpitations, Syncope ABD/GI: No: Diarrhea, Nausea, Vomiting Neurological: No: Headache, Unsteady Gait *Physical Exam - Vital Signs Last Vital Signs Temp Pulse Resp BP Pulse Ox 97.6 F 92 H 18 114/62 100 12/04/16 15:13 12/04/16 15:13 12/04/16 15:13 12/04/16 15:13 12/04/16 15:13 - Physical Exam Comments: 12/04/16 16:37 GENERAL: Well developed, well nourished. Awake and alert. No acute distress. HEENT: Normocephalic, atraumatic. PERRLA, EOMI. No conjunctival pallor. Sclera are non- icteric. Moist mucous membranes. Oropharynx is clear. NECK: Supple. Full ROM. No JVD. Carotid pulses 2+ and symmetric, without bruits. No thyromegaly. No lymphadenopathy. CARDIOVASCULAR: Regular rate and rhythm. No murmurs, rubs, or gallops. Distal pulses are 2+ and symmetric. PULMONARY: No evidence of respiratory distress. Lungs clear to auscultation bilaterally. No wheezing, rales or rhonchi. ABDOMINAL: Soft. Non-tender. Non-distended. No rebound or guarding. No organomegaly. Normoactive bowel sounds. MUSCULOSKELETAL Normal range of motion at all joints. No bony deformities or tenderness. No CVA tenderness. EXTREMITIES: 4+ pitting edema to the mid thigh. Pain to palpation while evaluating edema. No cyanosis. No clubbing. No calf tenderness. SKIN: Warm and dry. Normal capillary refill. No rashes. No jaundice. NEUROLOGICAL: Alert, awake, appropriate. Cranial nerves 2-12 intact. No deficits to light touch and temperature in face, upper extremities and lower extremities. No motor deficits in the in face, upper extremities and lower extremities. Normoreflexic in the upper and lower extremities. Normal speech. Toes are down- going bilaterally. Gait is normal without ataxia. PSYCHIATRIC: Cooperative. Good eye contact. Appropriate mood and affect. ED Treatment Course - LABORATORY CBC & Chemistry Diagram: 12/04/16 16:22 12/04/16 16:22 Medical Decision Making - Medical Decision Making 12/04/16 16:39 Patient is a 61-year-old female with past medical history of hypertension, hyperlipidemia, diabetes, CAD status post SD 2003, CABG in 2003 with stents, systolic CHF status post ICD pacemaker, COPD current smoker, hypothyroid is some presents to the emergency department today for chest pain and shortness of breath. Patient states that she feels better after resting. Probable CHF exacerbation, fluid overload with pitting edema. Cannot rule out ACS. PE less likely as swelling of legs is bilateral and she is complaining of foot pain. 1. CBC, CMP, BNP, INR, Cardiac profile 2. IV lasix 3. EKG, CXR 4. Re-evaluate 12/04/16 17:42 Chest x-ray shows no obvious effusion, there is some congestion of the pulmonary vasculature. EKG shows 12/04/16 18:01 Troponin is negative at this time. BNP is elevated at 2900. Her liver enzymes are slightly elevated as well. Patient went to use the restroom and became a little short of breath with exertion. She rested and felt better. 12/04/16 18:29 Pt states that she has used the restroom again. Still slightly short of breath with exertion. States that her feet feel much better now that she is use the restroom. Will admit for observation for further diuresis. First called Dr. huber ED. 12/04/16 18:[address] Brar. Would like us to full out lower extremity DVT before admission. Duplex ultrasound ordered. Sign out was given to Hilaria Hart NP. She will look for the ultrasound results and call Dr. Brar with the results. *DC/Admit/Observation/Transfer Diagnosis at time of Disposition: CHF exacerbation Qualifiers: Congestive heart failure type: unspecified congestive heart failure type Qualified Code(s): I50.9 - Heart failure, unspecified
[2016-12-04] MEDS ORDERED: FUROSEMIDE 40 MG/4 ML INJECTABLE VIAL IVPUSH ONE (16:45)
[2016-12-04] MEDS ORDERED: FUROSEMIDE 40 MG/4 ML INJECTABLE VIAL ONE (17:04)
[2016-12-04 17:37] LABS: BASOPHIL 0.4 % (0-2.0); MCH 26.6 pg (25.7-33.7); MCHC 31.6 g/dl (32.0-36.0); MEAN CELL VOLUME 84.3 fl (80-96); PLATELET COUNT 189 K/MM3 (134-434); RDW 21.9 % (11.6-15.6); WHITE BLOOD COUNT 5.7 K/mm3 (4.0-10.0)
[2016-12-04 17:49] LABS: INR 1.88 (0.82-1.09)
[2016-12-04 18:01] LABS: ALBUMIN 3.1 g/dl (3.4-5.0); ANION GAP 10 (8-16); CALCIUM 9.1 mg/dL (8.5-10.1); CO2 27 mmol/L (21-32); CREATININE 0.9 mg/dL (0.55-1.02); GLUCOSE,RANDOM 57 mg/dL (74-106); SGOT/AST 39 U/L (15-37); SGPT/ALT 20 U/L (12-78)
[2016-12-04 18:02] LABS: ALK PHOS 151 U/L (45-117); TOT PROT 6.9 g/dl (6.4-8.2)
[2016-12-04 18:05] LABS: TROPONIN I 0.09 ng/ml (0.00-0.05)
[2016-12-04 18:06] LABS: BILIRUBIN,TOTAL 4.5 mg/dL (0.2-1.0)
[2016-12-04 18:10] LABS: PLATELET COMMENT2 FEW GIANT PLTS; PLATELET ESTIMATE ADEQUATE (NORMAL)
[2016-12-04 18:11] LABS: ANISOCYTOSIS 2+; MICROCYTOSIS 1+; OVALOCYTES 1+; POIKILOCYTOSIS 1+; TARGET CELLS 1+
--- NOTE | 2016-12-04 22:31 | PDOC ---
*Physical Exam - Vital Signs Last Vital Signs Temp Pulse Resp BP Pulse Ox 97.6 F 77 18 130/66 100 12/04/16 15:13 12/04/16 19:07 12/04/16 19:07 12/04/16 19:07 12/04/16 19:30 - Physical Exam Comments: 12/04/16 22:30 Sign-out received from outgoing ER provider Kole. Pt interviewed and examined. Ancillary studies reviewed. Awaiting ultrasound for r/o DVT. Patient to be admitted pending negative ultrasound. Discussed case with MD Phillips who accepts patient for inpatient admission. ED Treatment Course - LABORATORY CBC & Chemistry Diagram: 12/04/16 16:22 12/04/16 16:22 - ADDITIONAL ORDERS Additional order review: Laboratory Results 12/04/16 12/04/16 12/04/16 17:01 16:22 16:22 INR 1.88 H Sodium Potassium Chloride Carbon Dioxide Anion Gap BUN Creatinine Creat Clearance w eGFR Random Glucose Calcium Total Bilirubin AST ALT Alkaline Phosphatase Creatine Kinase 243 H D CK-MB (CK-2) 10.015 H Troponin I 0.09 H B-Natriuretic Peptide 2474.25 H Total Protein Albumin 12/04/16 16:22 INR Sodium 138 Potassium 3.7 Chloride 101 Carbon Dioxide 27 Anion Gap 10 BUN 14 D Creatinine 0.9 Creat Clearance w eGFR > 60 Random Glucose 57 L Calcium 9.1 Total Bilirubin 4.5 H D AST 39 H ALT 20 Alkaline Phosphatase 151 H Creatine Kinase CK-MB (CK-2) Troponin I B-Natriuretic Peptide Total Protein 6.9 Albumin 3.1 L 12/04/16 16:22 RBC 4.72 MCV 84.3 MCHC 31.6 L RDW 21.9 H MPV 9.0 Neutrophils % 70.0 Lymphocytes % 18.1 D Monocytes % 11.5 H Eosinophils % 0.0 Basophils % 0.4 - Medications Given in the ED: ED Medications Discontinued Medications Generic Name Dose Route Start Last Admin Trade Name Freq PRN Reason Stop Dose Admin Furosemide 40 mg 12/04/16 16:45 12/04/16 17:10 Lasix Injection - IVPUSH 12/04/16 16:46 40 mg ONCE ONE Administration *DC/Admit/Observation/Transfer Diagnosis at time of Disposition: CHF exacerbation Qualifiers: Congestive heart failure type: unspecified congestive heart failure type Qualified Code(s): I50.9 - Heart failure, unspecified - Discharge Dispostion Disposition: HOME Admit: Yes
[2016-12-05 03:03] LABS: TROPONIN I 0.11 ng/ml (0.00-0.05)
[2016-12-05 03:38] VITALS: BMI 30.5
[2016-12-05] MEDS: LEVOTHYROXINE NA 75 MCG TABLET (FP) PO SCH (06:06)
[2016-12-05] MEDS: FUROSEMIDE 40 MG TABLET (FP) PO SCH ×3 (06:06→14:30)
[2016-12-05] MEDS: HEPARIN NA (PORCINE) 5,000 UNITS/ML 1ML VIAL SQ SCH ×2 (10:49→21:42)
[2016-12-05] MEDS: SPIRONOLACTONE 25 MG TABLET (FP) PO SCH (10:49)
[2016-12-05] MEDS: METOPROLOL SUCCINATE 100 MG TAB.SR.24H (FP) PO SCH (10:49)
[2016-12-05] MEDS: CLOPIDOGREL BISULFATE 75 MG TABLET (FP) PO SCH (10:49)
[2016-12-05 11:04] LABS: TROPONIN I 0.09 ng/ml (0.00-0.05)
--- NOTE | 2016-12-05 11:49 | CON.CARD ---
Consult Consult Specialty:: cardiology Reason for Consultation:: pedal edema; dyspnea - History of Present Illness Chief Complaint: Pt presently has pain in ankles; dyspneic on mild exertion History of Present Illness: Patient is a 61-year-old black female with past medical history of hypertension , hyperlipidemia, diabetes, CAD status post [place] 2003, CABG in 2003 with stents, systolic CHF status post ICD,, COPD current smoker, hypothyroid is some presents to the emergency department today for chest pain and shortness of breath. 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 So she presented to the emergency department for further evaluation. Currently she states that her pain is much better at the 1 out of 10 now that she has had time to rest she states she is not short of breath at this time. Admits to shortness of breath with exertion and foot pain. Impression states she is also put on approximately 10 pounds in 2 weeks and states that both of her legs have become very swollen. Denies palpitations, chest tightness, wheezing, fevers, chills, malaise, nausea, vomiting, diarrhea, recent travel. 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 Had PEG placed 11/03 after suffering vocal cord damage ( EMS intubation). PEG was subsequently removed. ) Hepatobiliary: Yes: Cirrhosis (cardiac cirrhosis), Cholecystitis (s/p lap choly 05/05) Renal/: Yes: Renal Calculi Reproductive: Yes: Postmenopausal ...: No Psych: Yes: Depression Musculoskeletal: Yes: Chronic low back pain, Osteoarthritis Endocrine: Yes: Hypothyroidism - Past Surgical History Past Surgical History: Yes: AICD, CABG, Cholecystectomy, Colonoscopy, Joint Replacement (right THR), Stent (X2) - Alcohol/Substance Use Hx Alcohol Use: No History of Substance Use: reports: None - Smoking History Smoking history: Current every day smoker Have you smoked in the past 12 months: Yes Aproximately how many cigarettes per day: 5 - Social History Usual Living Arrangement: Alone ADL: Independent 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 History of Recent Travel: No Home Medications - Allergies Allergies/Adverse Reactions: Allergies Allergy/AdvReac Type Severity Reaction Status Date / Time aspirin Allergy Mild Rash Verified 12/04/16 15:17 banana Allergy Hives Verified 12/04/16 15: tomato Allergy Verified 12/04/16 15:17 - Home Medications Home Medications: Ambulatory Orders Calamine 8% Topical Lotion - 1 applic TP BID PRN #0 bottle 08/04/16 Clopidogrel Bisulfate [Plavix -] 75 mg PO DAILY #30 tablet 08/04/16 Levothyroxine [Synthroid -] 75 mcg PO DAILY #30 tab 08/04/16 Mineral Oil/Petrolat,Wht/Water [Eucerin (Large Jar) -] 1 applic TP DAILY PRN #0 jar 08/04/16 Spironolactone 50 mg PO DAILY #30 tablet 08/04/16 Furosemide [Lasix -] 80 mg PO BID #60 tablet 08/27/16 Potassium Chloride 20 meq PO DAILY #30 tab 08/27/16 Atorvastatin Ca [Lipitor] 20 mg PO HS 09/08/16 Lisinopril [Prinivil] 5 mg PO DAILY #30 tablet 09/14/16 Diphenhydramine HCl [Benadryl Capsule -] 25 mg PO Q6H PRN #0 tab 11/23/16 Magnesium Oxide [Mag-Ox -] 400 mg PO DAILY #30 tablet 11/23/16 Metoprolol Succinate [Toprol Xl] 100 mg PO DAILY #30 tab.er.24h 11/23/16 Family Disease History - Family Disease History Family Disease History: Diabetes: Sister (s/p CABG in her 50s), Heart Disease: Father (had unknown cancer), Mother (lived to ), Sister, [place]: Father Review of Systems - Review of Systems Constitutional: reports: Weakness Eyes: reports: No Symptoms HENT: reports: No Symptoms Neck: reports: No Symptoms Cardiovascular: reports: Shortness of Breath Respiratory: reports: SOB on Exertion Gastrointestinal: reports: Abdominal Pain Genitourinary: reports: No Symptoms Breasts: reports: No Symptoms Reported Musculoskeletal: reports: Joint Pain, Muscle Pain, Muscle Weakness Integumentary: reports: No Symptoms Neurological: reports: Weakness Psychiatric: reports: Anxiety, Depression, Other (anger) - Risk Factors Known Risk Factors: Yes: Age, Hypercholesterolemia, Hypertension, Prior TX /Emb Stroke, Race, Smoking Vital Signs: Vital Signs Temperature 98.0 F 12/05/16 03:29 Pulse Rate 88 12/05/16 06:00 Respiratory Rate 20 12/05/16 06:00 Blood Pressure 129/90 12/05/16 06:00 O2 Sat by Pulse Oximetry (%) 97 12/05/16 09:00 Constitutional: Yes: Anxious Eyes: Yes: WNL HENT: Yes: WNL Neck: Yes: WNL Respiratory: Yes: Regular Gastrointestinal: Yes: Soft. No: Tenderness Renal/: No: Anuria Cardiovascular: Yes: Regular Rate and Rhythm JVD: No Carotid Bruit: No PMI: Displaced Heart Sounds: Yes: S1, Split S2 Murmur: Yes: Systolic Murmur, Grade 2 Musculoskeletal: Yes: Joint Stiffness, Muscle Pain, Muscle Weakness Extremities: Yes: Cool Edema: Yes Edema: LLE: 2+, RLE: 2+ Peripheral Pulses WNL: No Peripheral Pulses: 1+ Left Doralis Pedis, 1+ Right Dorsalis Pedis Integumentary: Yes: Venous Stasis Changes Neurological: Yes: Alert, Oriented Psychiatric: Yes: Other - Other Data Labs, Other Data: INR, PTT INR 1.88 (0.82-1.09) H 12/04/16 16:22 Troponin, BNP 12/05/16 12/05/16 02:33 10:28 Troponin I 0.11 H 0.09 H Troponin, BNP 12/05/16 12/05/16 02:33 10:28 Troponin I 0.11 H 0.09 H Abnormal Lab Results 12/05/16 12/05/16 02:33 10:28 Creatine Kinase 229 H 240 H CK-MB (CK-2) 10.191 H 10.350 H Troponin I 0.11 H 0.09 H Ejection Fraction %: LVEF < 40 % Imaging - Results Chest X-ray: Image Reviewed (no acute pathology (left lower border obscured by cardiac silhouette)) EKG: Image Reviewed (NSR; LBBB) Other: Image Reviewed (telemetry: NSR) Problem List - Problems (1) Elevated troponin Code(s): R74.8 - ABNORMAL LEVELS OF OTHER SERUM ENZYMES (2) Hyperlipidemia Code(s): E78.5 - HYPERLIPIDEMIA, UNSPECIFIED (3) Hypertension Code(s): I10 - ESSENTIAL (PRIMARY) HYPERTENSION (4) Noncompliance with medication regimen Code(s): Z91.14 - PATIENT'S OTHER NONCOMPLIANCE WITH MEDICATION REGIMEN (5) Peripheral neuropathy Code(s): G62.9 - POLYNEUROPATHY, UNSPECIFIED Qualifiers: Peripheral neuropathy type: polyneuropathy, unspecified Qualified Code( s): G62.9 - Polyneuropathy, unspecified (6) Sphincter of Oddi dysfunction Code(s): K83.4 - SPASM OF SPHINCTER OF ODDI (7) Status post THR (total hip replacement) Code(s): Z96.649 - PRESENCE OF UNSPECIFIED ARTIFICIAL HIP JOINT (8) Postoperative abdominal pain Code(s): R10.9 - UNSPECIFIED ABDOMINAL PAIN G89.18 - OTHER ACUTE POSTPROCEDURAL PAIN (9) Acute on chronic systolic and diastolic heart failure, NYHA class 1 Assessment/Plan: Restart carvedilol, lisinopril, spironolactone. IV furosemide. Pt is on ASA and clopidogrel. F/u BUN/Cr, electrolytes, daily weight, Is and Os. Pt has had multiple readmissions to hospital over the past several months for acute CHF. Contributing factors include severely reduced LVEF, ? poor compliance to medications, diet (often eats fried and salty food), anxiety/ depression/anger (has refused to see a psychiatrist), and social/housing issues. Code(s): I50.43 - ACUTE ON CHRONIC COMBINED SYSTOLIC AND DIASTOLIC HRT FAIL (10) Cigarette nicotine dependence Assessment/Plan: The imperative need to stop smoking altogether was again discussed. Code(s): F17.210 - NICOTINE DEPENDENCE, CIGARETTES, UNCOMPLICATED (11) Coronary artery disease Code(s): I25.10 - ATHSCL HEART DISEASE OF [place] CORONARY ARTERY W/O ANG PCTRS (12) Depression Code(s): F32.9 - MAJOR DEPRESSIVE DISORDER, SINGLE EPISODE, UNSPECIFIED (13) Fatty liver Code(s): K76.0 - FATTY (CHANGE OF) LIVER, NOT ELSEWHERE CLASSIFIED (14) Hypothyroidism Code(s): E03.9 - HYPOTHYROIDISM, UNSPECIFIED (15) ICD (implantable cardioverter-defibrillator) in place Code(s): Z95.810 - PRESENCE OF AUTOMATIC (IMPLANTABLE) CARDIAC DEFIBRILLATOR (16) Lower extremity edema Code(s): R60.0 - LOCALIZED EDEMA (17) NSVT (nonsustained ventricular tachycardia) Assessment/Plan: Pt has ICD implanted. Continue carvedilol, lisinopril, spironolactone. Maintain electrolytes WNL. Code(s): I47.2 - VENTRICULAR TACHYCARDIA (18) Sleep apnea Code(s): G47.30 - SLEEP APNEA, UNSPECIFIED Assessment/Plan cc time spent studying chart, evaluating pt, formulating plan: 60 minutes
--- NOTE | 2016-12-05 16:06 | HP ---
Admitting History and Physical - Primary Care Physician PCP: Ernesto Phillips - Admission History of Present Illness: - Patient is a 61-year-old black female with past medical history of hypertension , hyperlipidemia, diabetes, CAD status post AR 2003, CABG in 2003 with stents, systolic CHF status post ICD,, COPD current smoker, hypothyroid is some presents to the emergency department today for chest pain and shortness of breath. 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 Had PEG placed 11/03 after suffering vocal cord damage ( EMS intubation). PEG was subsequently removed. ) Hepatobiliary: Yes: Cirrhosis (cardiac cirrhosis), Cholecystitis (s/p lap choly 05/05) Renal/: Yes: Renal Calculi Psych: Yes: Depression Musculoskeletal: Yes: Chronic low back pain, Osteoarthritis Endocrine: Yes: Hypothyroidism - Past Surgical History Past Surgical History: Yes: AICD, CABG, Cholecystectomy, Colonoscopy, Joint Replacement (right THR), Stent (X2) - Smoking History Smoking history: Never smoked Have you smoked in the past 12 months: Yes Aproximately how many cigarettes per day: 5 - Alcohol/Substance Use Hx Alcohol Use: No History of Substance Use: reports: None - Social History ADL: Independent 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 History of Recent Travel: No Home Medications - Allergies Allergies/Adverse Reactions: Allergies Allergy/AdvReac Type Severity Reaction Status Date / Time aspirin Allergy Mild Rash Verified 12/04/16 15:17 banana Allergy Hives Verified 12/04/16 15:17 tomato Allergy Verified 12/04/16 15:17 - Home Medications Home Medications: Ambulatory Orders Calamine 8% Topical Lotion - 1 applic TP BID PRN #0 bottle 08/04/16 Clopidogrel Bisulfate [Plavix -] 75 mg PO DAILY #30 tablet 08/04/16 Levothyroxine [Synthroid -] 75 mcg PO DAILY #30 tab 08/04/16 Mineral Oil/Petrolat,Wht/Water [Eucerin (Large Jar) -] 1 applic TP DAILY PRN #0 jar 08/04/16 Spironolactone 50 mg PO DAILY #30 tablet 08/04/16 Furosemide [Lasix -] 80 mg PO BID #60 tablet 08/27/16 Potassium Chloride 20 meq PO DAILY #30 tab 08/27/16 Atorvastatin Ca [Lipitor] 20 mg PO HS 09/08/16 Diphenhydramine HCl [Benadryl Capsule -] 25 mg PO Q6H PRN #0 tab 11/23/16 Magnesium Oxide [Mag-Ox -] 400 mg PO DAILY #30 tablet 11/23/16 Metoprolol Succinate [Toprol Xl] 100 mg PO DAILY #30 tab.er.24h 11/23/16 Family Disease History - Family Disease History Family Disease History: Diabetes: Sister (s/p CABG in her 50s), Heart Disease: Father (had unknown cancer), Mother (lived to ), Sister, [place]: Father Physical Examination Vital Signs: Vital Signs Temperature 98.0 F 12/05/16 03:29 Pulse Rate 88 12/05/16 06:00 Respiratory Rate 20 12/05/16 06:00 Blood Pressure 129/90 12/05/16 06:00 O2 Sat by Pulse Oximetry (%) 97 12/05/16 09:00 Constitutional: Yes: No Distress HENT: Yes: Atraumatic Neck: Yes: Supple Cardiovascular: Yes: Regular Rate and Rhythm Respiratory: Yes: CTA Bilaterally Gastrointestinal: Yes: Normal Bowel Sounds Extremities: Yes: WNL Neurological: Yes: Alert, Oriented Problem List - Problems (1) CHF exacerbation Assessment/Plan: on diuretics continue home meds cardiology consult Code(s): I50.9 - HEART FAILURE, UNSPECIFIED Qualifiers: Congestive heart failure type: unspecified congestive heart failure type Qualified Code(s): I50.9 - Heart failure, unspecified (2) Chest pain of uncertain etiology Code(s): R07.89 - OTHER CHEST PAIN (3) Acute combined systolic and diastolic ACC/AHA stage C congestive heart failure Code(s): I50.41 - ACUTE COMBINED SYSTOLIC AND DIASTOLIC (CONGESTIVE) HRT FAIL (4) Elevated troponin Assessment/Plan: will fu could related to chf Code(s): R74.8 - ABNORMAL LEVELS OF OTHER SERUM ENZYMES (5) Hyperlipidemia Assessment/Plan: on meds Code(s): E78.5 - HYPERLIPIDEMIA, UNSPECIFIED Assessment/Plan Laboratory Tests 12/04/16 12/04/16 12/04/16 16:22 16:22 16:22 WBC 5.7 RBC 4.72 Hgb 12.6 Hct 39.8 MCV 84.3 MCH 26.6 MCHC 31.6 L RDW 21.9 H Plt Count 189 D MPV 9.0 Neutrophils % 70.0 Lymphocytes % 18.1 D Monocytes % 11.5 H Eosinophils % 0.0 Basophils % 0.4 Platelet Estimate Adequate Platelet Comment Few giant plts Poikilocytosis 1+ Anisocytosis 2+ Microcytosis 1+ Target Cells 1+ Ovalocytes 1+ INR Sodium 138 Potassium 3.7 Chloride 101 Carbon Dioxide 27 Anion Gap 10 BUN 14 D Creatinine 0.9 Creat Clearance w eGFR > 60 POC Glucometer Random Glucose 57 L Calcium 9.1 Total Bilirubin 4.5 H D AST 39 H ALT 20 Alkaline Phosphatase 151 H Creatine Kinase Creatine Kinase Index CK-MB (CK-2) Troponin I B-Natriuretic Peptide 2474.25 H Total Protein 6.9 Albumin 3.1 L 12/04/16 12/04/16 12/05/16 16:22 17:01 02:33 WBC RBC Hgb Hct MCV MCH MCHC RDW Plt Count MPV Neutrophils % Lymphocytes % Monocytes % Eosinophils % Basophils % Platelet Estimate Platelet Comment Poikilocytosis Anisocytosis Microcytosis Target Cells Ovalocytes INR 1.88 H Sodium Potassium Chloride Carbon Dioxide Anion Gap BUN Creatinine Creat Clearance w eGFR POC Glucometer Random Glucose Calcium Total Bilirubin AST ALT Alkaline Phosphatase Creatine Kinase 243 H D 229 H Creatine Kinase Index 4.5 CK-MB (CK-2) 10.015 H 10.191 H Troponin I 0.09 H 0.11 H B-Natriuretic Peptide Total Protein Albumin 12/05/16 12/05/16 07:53 10:28 WBC RBC Hgb Hct MCV MCH MCHC RDW Plt Count MPV Neutrophils % Lymphocytes % Monocytes % Eosinophils % Basophils % Platelet Estimate Platelet Comment Poikilocytosis Anisocytosis Microcytosis Target Cells Ovalocytes INR Sodium Potassium Chloride Carbon Dioxide Anion Gap BUN Creatinine Creat Clearance w eGFR POC Glucometer [id number] Random Glucose Calcium Total Bilirubin AST ALT Alkaline Phosphatase Creatine Kinase 240 H Creatine Kinase Index CK-MB (CK-2) 10.350 H Troponin I 0.09 H B-Natriuretic Peptide Total Protein Albumin Active Medications Generic Name Dose Route Start Last Admin Trade Name [place] PRN Reason Stop Dose Admin Atorvastatin Calcium 20 mg 12/05/16 22:00 Lipitor - PO HS [facility] Clopidogrel Bisulfate 75 mg 12/05/16 10:00 12/05/16 10:49 Plavix - PO 75 mg DAILY [facility] Administration Furosemide 80 mg 12/05/16 06:00 12/05/16 14:04 Lasix - PO Not Given BIDLASIX [facility] Heparin Sodium (Porcine) 5,000 unit 12/05/16 10:00 12/05/16 10:49 Heparin - SQ 5,000 unit BID [facility] Administration Levothyroxine Sodium 75 mcg 12/05/16 07:00 12/05/16 06:06 Synthroid - PO 75 mcg DAILY@0700 [facility] Administration Metoprolol Succinate 100 mg 12/05/16 10:00 12/05/16 10:49 Toprol Xl - PO 100 mg DAILY [facility] Administration Spironolactone 50 mg 12/05/16 10:00 12/05/16 10:49 Aldactone - PO 50 mg DAILY [facility] Administration
--- NOTE | 2016-12-05 16:57 | EKG ---
Test Reason : Blood Pressure : / mmHG Vent. Rate : 093 BPM Atrial Rate : 093 BPM P-R Int : 180 ms QRS Dur : 126 ms QT Int : 402 ms P-R-T Axes : 061 105 012 degrees QTc Int : 499 ms SINUS RHYTHM WITH OCCASIONAL PREMATURE VENTRICULAR COMPLEXES RIGHTWARD AXIS ,LEFT POSTERIOR JUAREZ BLOCK LEFT BUNDLE BRANCH BLOCK CANNOT RULE OUT ANTERIOR INFARCT , AGE UNDETERMINED ABNORMAL ECG WHEN COMPARED WITH ECG OF 19-NOV-2016 09:16, PREMATURE VENTRICULAR COMPLEXES ARE NOW PRESENT BBBBBSELINE ARTIFACTS Confirmed by ABBEY PIKE MD ([id number]) on 12/05/2016 4:56:55 PM Referred By: Confirmed By:ABBEY PIKE MD
[2016-12-05] MEDS ORDERED: ATORVASTATIN CA 20 MG TABLET (FP) PO SCH (22:00)
[2016-12-06] MEDS: FUROSEMIDE 40 MG TABLET (FP) PO SCH ×2 (06:58→09:27)
[2016-12-06] MEDS: LEVOTHYROXINE NA 75 MCG TABLET (FP) PO SCH (09:29)
[2016-12-06] MEDS: METOPROLOL SUCCINATE 100 MG TAB.SR.24H (FP) PO SCH (09:30)
[2016-12-06] MEDS: HEPARIN NA (PORCINE) 5,000 UNITS/ML 1ML VIAL SQ SCH (09:30)
[2016-12-06] MEDS: CLOPIDOGREL BISULFATE 75 MG TABLET (FP) PO SCH (09:30)
[2016-12-06] MEDS: SPIRONOLACTONE 25 MG TABLET (FP) PO SCH (09:30)
--- NOTE | 2016-12-06 11:05 | PN ---
Progress Note, Physician History of Present Illness: Patient is a 61-year-old black female with past medical history of hypertension , hyperlipidemia, diabetes, CAD status post DC 2003, CABG in 2003 with stents, systolic CHF status post ICD,, COPD current smoker, hypothyroid is some presents to the emergency department today for chest pain and shortness of breath. 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 So she presented to the emergency department for further evaluation. Currently she states that her pain is much better at the 1 out of 10 now that she has had time to rest she states she is not short of breath at this time. Admits to shortness of breath with exertion and foot pain. Impression states she is also put on approximately 10 pounds in 2 weeks and states that both of her legs have become very swollen. Denies palpitations, chest tightness, wheezing, fevers, chills, malaise, nausea, vomiting, diarrhea, recent travel. - Current Medication List Current Medications: Active Medications Atorvastatin Calcium (Lipitor -) 20 mg PO HS [facility] Last Admin: 12/05/16 21:42 Dose: 20 mg Clopidogrel Bisulfate (Plavix -) 75 mg PO DAILY [facility] Last Admin: 12/06/16 09:30 Dose: 75 mg Furosemide (Lasix -) 80 mg PO BIDLASIX [facility] Last Admin: 12/06/16 09:27 Dose: 80 mg Heparin Sodium (Porcine) (Heparin -) 5,000 unit SQ BID [facility] Last Admin: 12/06/16 09:30 Dose: 5,000 unit Levothyroxine Sodium (Synthroid -) 75 mcg PO DAILY@0700 [facility] Last Admin: 12/06/16 09:29 Dose: 75 mcg Metoprolol Succinate (Toprol Xl -) 100 mg PO DAILY [facility] Last Admin: 12/06/16 09:30 Dose: 100 mg Spironolactone (Aldactone -) 50 mg PO DAILY [facility] Last Admin: 12/06/16 09:30 Dose: 50 mg - Objective Vital Signs: Vital Signs Temperature 98.4 F 12/06/16 02:00 Pulse Rate 65 12/06/16 06:00 Respiratory Rate 18 12/06/16 06:00 Blood Pressure 114/80 12/06/16 04:00 O2 Sat by Pulse Oximetry (%) 97 12/05/16 20:04 Eyes: Yes: WNL, Conjunctiva Clear, EOM Intact HENT: Yes: WNL, Atraumatic, Normocephalic Neck: Yes: WNL, Supple, Trachea Midline Cardiovascular: Yes: WNL, Regular Rate and Rhythm Respiratory: Yes: WNL, Regular, CTA Bilaterally Gastrointestinal: Yes: WNL, Normal Bowel Sounds Genitourinary: Yes: WNL Musculoskeletal: Yes: WNL Extremities: Yes: WNL Edema: Yes Integumentary: Yes: WNL Neurological: Yes: WNL, Alert, Oriented ...Motor Strength: WNL Psychiatric: Yes: WNL Labs: INR, PTT INR 1.88 (0.82-1.09) H 12/04/16 16:22 Assessment/Plan - Problems (1) Elevated troponin Code(s): R74.8 - ABNORMAL LEVELS OF OTHER SERUM ENZYMES (2) Hyperlipidemia Code(s): E78.5 - HYPERLIPIDEMIA, UNSPECIFIED (3) Hypertension Code(s): I10 - ESSENTIAL (PRIMARY) HYPERTENSION (4) Noncompliance with medication regimen Code(s): Z91.14 - PATIENT'S OTHER NONCOMPLIANCE WITH MEDICATION REGIMEN (5) Peripheral neuropathy Code(s): G62.9 - POLYNEUROPATHY, UNSPECIFIED Qualifiers: Peripheral neuropathy type: polyneuropathy, unspecified Qualified Code( s): G62.9 - Polyneuropathy, unspecified (6) Sphincter of Oddi dysfunction Code(s): K83.4 - SPASM OF SPHINCTER OF ODDI (7) Status post THR (total hip replacement) Code(s): Z96.649 - PRESENCE OF UNSPECIFIED ARTIFICIAL HIP JOINT (8) Postoperative abdominal pain Code(s): R10.9 - UNSPECIFIED ABDOMINAL PAIN G89.18 - OTHER ACUTE POSTPROCEDURAL PAIN (9) Acute on chronic systolic and diastolic heart failure, NYHA class 1 Assessment/Plan: Restart carvedilol, lisinopril, spironolactone. IV furosemide. Pt is on ASA and clopidogrel. F/u BUN/Cr, electrolytes, daily weight, Is and Os. Pt has had multiple readmissions to hospital over the past several months for acute CHF. Contributing factors include severely reduced LVEF, ? poor compliance to medications, diet (often eats fried and salty food), anxiety/ depression/anger (has refused to see a psychiatrist), and social/housing issues. Code(s): I50.43 - ACUTE ON CHRONIC COMBINED SYSTOLIC AND DIASTOLIC HRT FAIL (10) Cigarette nicotine dependence Assessment/Plan: The imperative need to stop smoking altogether was again discussed. Code(s): F17.210 - NICOTINE DEPENDENCE, CIGARETTES, UNCOMPLICATED (11) Coronary artery disease Code(s): I25.10 - ATHSCL HEART DISEASE OF [place] CORONARY ARTERY W/O ANG PCTRS (12) Depression Code(s): F32.9 - MAJOR DEPRESSIVE DISORDER, SINGLE EPISODE, UNSPECIFIED (13) Fatty liver Code(s): K76.0 - FATTY (CHANGE OF) LIVER, NOT ELSEWHERE CLASSIFIED (14) Hypothyroidism Code(s): E03.9 - HYPOTHYROIDISM, UNSPECIFIED (15) ICD (implantable cardioverter-defibrillator) in place Code(s): Z95.810 - PRESENCE OF AUTOMATIC (IMPLANTABLE) CARDIAC DEFIBRILLATOR (16) Lower extremity edema Code(s): R60.0 - LOCALIZED EDEMA (17) NSVT (nonsustained ventricular tachycardia) Assessment/Plan: Pt has ICD implanted. Continue carvedilol, lisinopril, spironolactone. Maintain electrolytes WNL. Code(s): I47.2 - VENTRICULAR TACHYCARDIA (18) Sleep apnea Code(s): G47.30 - SLEEP APNEA, UNSPECIFIED Assessment/Plan cc time spent studying chart, evaluating pt, formulating plan: 35 minutes
--- NOTE | 2016-12-06 12:10 | DS ---
Physical Examination Vital Signs: Vital Signs Temperature 98.4 F 12/06/16 02:00 Pulse Rate 65 12/06/16 06:00 Respiratory Rate 18 12/06/16 06:00 Blood Pressure 114/80 12/06/16 04:00 O2 Sat by Pulse Oximetry (%) 97 12/05/16 20:04 Constitutional: Yes: No Distress HENT: Yes: Atraumatic Neck: Yes: Supple Cardiovascular: Yes: Regular Rate and Rhythm Respiratory: Yes: CTA Bilaterally Gastrointestinal: Yes: Normal Bowel Sounds Extremities: Yes: WNL Discharge Summary Reason For Visit: ACUTE CHRONIC CONGESTED HEART FAILURE Current Active Problems Chest pain of uncertain etiology (Acute) Acute combined systolic and diastolic ACC/AHA stage C congestive heart failure ( Chronic) Chest pain (Chronic) Dyspepsia (Chronic) Elevated troponin (Chronic) Hyperbilirubinemia (Chronic) Hyperlipidemia (Chronic) Hypertension (Chronic) Noncompliance with medication regimen (Chronic) Peripheral neuropathy (Chronic) Restless leg syndrome (Chronic) Sphincter of Oddi dysfunction (Chronic) Status post THR (total hip replacement) (Chronic) Transaminitis (Chronic) - Instructions Referrals: Parrish Ferrer MD [Primary Care Provider] - Dick Cage MD [Staff Physician] - Disposition: HOME - Home Medications Comprehensive Discharge Medication List: Ambulatory Orders Calamine 8% Topical Lotion - 1 applic TP BID PRN #0 bottle 08/04/16 Clopidogrel Bisulfate [Plavix -] 75 mg PO DAILY #30 tablet 08/04/16 Levothyroxine [Synthroid -] 75 mcg PO DAILY #30 tab 08/04/16 Mineral Oil/Petrolat,Wht/Water [Eucerin (Large Jar) -] 1 applic TP DAILY PRN #0 jar 08/04/16 Spironolactone 50 mg PO DAILY #30 tablet 08/04/16 Furosemide [Lasix -] 80 mg PO BID #60 tablet 08/27/16 Potassium Chloride 20 meq PO DAILY #30 tab 08/27/16 Atorvastatin Ca [Lipitor] 20 mg PO HS 09/08/16 Diphenhydramine HCl [Benadryl Capsule -] 25 mg PO Q6H PRN #0 tab 11/23/16 Magnesium Oxide [Mag-Ox -] 400 mg PO DAILY #30 tablet 11/23/16 Metoprolol Succinate [Toprol Xl] 100 mg PO DAILY #30 tab.er.24h 11/23/16 d/w cardiology dr cage pt need to fu at his office
[2016-12-06 15:26] VITALS: BP 97/74; PULSE 60; TEMP 98
== END 2016-12-06 19:53 | disposition home or self-care (01) | DRG 292 ==
LOC: JER 15:04 → JERBED 22:31 → UNDOADMIN 23:44 → JERBED 23:44 → J2W 12-05 03:26
PROVIDERS: ADMIT Internal Medicine; ATTEND Internal Medicine
DX: I11.0 Hypertensive heart disease with heart failure (principal); I47.2 Ventricular tachycardia; I50.43 Acute on chronic combined systolic (congestive) and diastolic (congestive) heart failure; E78.5 Hyperlipidemia, unspecified; E80.6 Other disorders of bilirubin metabolism; G25.81 Restless legs syndrome; R74.0 Nonspecific elevation of levels of transaminase and lactic acid dehydrogenase [LDH]; Z91.14 Patient's other noncompliance with medication regimen; I25.10 Atherosclerotic heart disease of native coronary artery without angina pectoris; Z95.1 Presence of aortocoronary bypass graft; Z95.5 Presence of coronary angioplasty implant and graft; I25.2 Old myocardial infarction; Z95.0 Presence of cardiac pacemaker; E03.9 Hypothyroidism, unspecified; J44.9 Chronic obstructive pulmonary disease, unspecified; F17.210 Nicotine dependence, cigarettes, uncomplicated; F32.9 Major depressive disorder, single episode, unspecified; R60.0 Localized edema; M47.9 Spondylosis, unspecified; I27.2 Other secondary pulmonary hypertension; E11.42 Type 2 diabetes mellitus with diabetic polyneuropathy; K76.0 Fatty (change of) liver, not elsewhere classified; Z96.649 Presence of unspecified artificial hip joint; R74.8 Abnormal levels of other serum enzymes; K83.4 Spasm of sphincter of Oddi; G47.30 Sleep apnea, unspecified
CPT/HCPCS: 36415; 71010-TC; 80053; 82550; 82553; 83880; 84484; 85025; 85610; 93005; 93010; 93970-TC; 99285-25; J1644

== ENCOUNTER 2017-01-04 19:33 | Inpatient (IN) | payer OTHER, BC ==
[2017-01-04 19:48] VITALS: BMI 28.3
[2017-01-04] MEDS ORDERED: ALBUTEROL SO4 2.5/IPRATROPIUM 0.5 INH SOL 3 ML VIAL.NEB. NEB ONE ×2 (20:58→21:20)
--- NOTE | 2017-01-04 21:00 | PDOC ---
History of Present Illness - General Chief Complaint: Chest Pain Stated Complaint: TROUBLE BREATHING/CHEST PAINS Time Seen by Provider: 01/04/17 20:05 - History of Present Illness Initial Comments: 01/04/17 20:59 CHIEF COMPLAINT: SOB, chest pain since last night, b/l leg pain HISTORY OF PRESENT ILLNESS: 61 yo F well known to this ER with PMH of hypertension, hyperlipidemia, diabetes, CAD s/p PA 2003 (CABG in 2003 with stent placement), systolic CHF s/p ICD, COPD current smoker, hypothyroidism, kidney stones presents to the emergency department today for chest pain and shortness of breath. Patient states the shortness of breath started this morning and has worsened throughout the day. She reports that her legs have been swollen and she saw her applications support analyst recently and he "cut something out on the front of my R leg." She states that she is having pain and swelling to her lower legs bilaterally. She also reports pain to her lower abdomen "ever since I got my gallbladder out." She denies any fever, chills, nausea, vomiting, diarrhea, cough, and then refused to answer any more questions. PCP is Dr. Ferrer/Marybeth, Actionscript Developer is Severiano. No recent travel or sick contacts. PAST MEDICAL HISTORY: as per HPI SOCIAL HISTORY: Current smoker, 40 cigarettes daily. SURGICAL HISTORY: PEG tube placement, Stents x2, CABG (2003), ICD/Pacemaker ( November), cholecystectomy (April 2016) ALLERGIES: aspirin REVIEW OF SYSTEMS General/Constitutional: Denies fever or chills. Cardiovascular: SOB, chest pain since this morning. Respiratory: Denies cough, wheezing. Gastrointestinal: Denies nausea, vomiting, diarrhea or constipation. Genitourinary: Denies dysuria, frequency, or change in urination. Musculoskeletal: "My legs hurt." Neurologic: Denies headache, vertigo, loss of consciousness, or loss of sensation. PHYSICAL EXAM General Appearance: Well-appearing, appropriately dressed. No apparent distress. HEENT: EOMI, PERRLA, normal ENT inspection, normal voice, TMs normal, pharynx normal. No conjunctival pallor. No photophobia, scleral icterus. Respiratory/Chest: Shortness of breath, wheezing to RUL. No accessory muscle use. No crackles, rales, rhonchi, stridor, dullness Cardiovascular: RRR. S1, S2. No JVD, murmur, bradycardia, tachycardia. Vascular Pulses: Dorsalis-Pedis (R): 1+, Dorsalis-Pedis (L): 1+ Gastrointestinal/Abdominal: Distended lower abdomen with tenderness palpation. No organomegaly, pulsatile mass, guarding, hernia, hepatomegaly, splenomegaly. Musculoskeletal/Extremities: +2 pitting edema to LE b/l with erythema and tenderness on palpation. Normal inspection. FROM of all extremities, normal capillary refill. Pelvis Stable. No CVA tenderness. No tenderness to extremities, pedal edema, swelling, erythema or deformity. Integumentary: Appropriate color, dry, warm. No cyanosis, erythema, jaundice or rash Neurologic: quality audit representative II-XII intact. Fully oriented, alert. Appropriate mood/affect. Motor strength 5/5. No appreciable EOM palsy, facial droop or sensory deficit. 01/05/17 00:20 01/05/17 00:37 Past History - Past Medical History Allergies/Adverse Reactions: Allergies Allergy/AdvReac Type Severity Reaction Status Date / Time aspirin Allergy Mild Rash Verified 01/04/17 19:48 banana Allergy Hives Verified 12/04/16 15:17 tomato Allergy Verified 12/04/16 15:17 Home Medications: Ambulatory Orders Calamine 8% Topical Lotion - 1 applic TP BID PRN #0 bottle 08/04/16 Clopidogrel Bisulfate [Plavix -] 75 mg PO DAILY #30 tablet 08/04/16 Levothyroxine [Synthroid -] 75 mcg PO DAILY #30 tab 08/04/16 Mineral Oil/Petrolat,Wht/Water [Eucerin (Large Jar) -] 1 applic TP DAILY PRN #0 jar 08/04/16 Spironolactone 50 mg PO DAILY #30 tablet 08/04/16 Furosemide [Lasix -] 80 mg PO BID #60 tablet 08/27/16 Potassium Chloride 20 meq PO DAILY #30 tab 08/27/16 Atorvastatin Ca [Lipitor] 20 mg PO HS 09/08/16 Diphenhydramine HCl [Benadryl Capsule -] 25 mg PO Q6H PRN #0 tab 11/23/16 Magnesium Oxide [Mag-Ox -] 400 mg PO DAILY #30 tablet 11/23/16 Metoprolol Succinate [Toprol Xl] 100 mg PO DAILY #30 tab.er.24h 11/23/16 Anemia: No Asthma: Yes Cancer: No Cardiac Disorders: Yes (Stents, PM/Defib, STEMI, SYSTOLIC CHF,PULM HTN) CVA: No COPD: No CHF: Yes Dementia: No Diabetes: Yes GI Disorders: Yes Disorders: No HTN: Yes Hypercholesterolemia: Yes Kidney Stones: Yes Liver Disease: Yes Psychiatric Problems: Yes (depression.) Suicide Attempt (Hx): No Seizures: No Thyroid Disease: Yes (Hypo) - Surgical History Abdominal Surgery: Yes (hx of peg tube.) Appendectomy: No Cardiac Surgery: Yes (bypass,stent x2, CABG 2003, ICD/Pacer 12/02) Cholecystectomy: Yes (04/2016) Lung Surgery: (cabg 2003) Neurologic Surgery: No Orthopedic Surgery: Yes (Right THR) - Immunization History Immunization Up to Date: Yes - Psycho/Social/Smoking Cessation Hx Anxiety: No Suicidal Ideation: No Smoking Status: No Smoking History: Current every day smoker Have you smoked in the past 12 months: Yes Number of Cigarettes Smoked Daily: 4 Information on smoking cessation initiated: No 'Breaking Loose' booklet given: 10/12/16 Hx Alcohol Use: No Drug/Substance Use Hx: No Substance Use Type: None Hx Substance Use Treatment: No *Physical Exam - Vital Signs Last Vital Signs Temp Pulse Resp BP Pulse Ox 97.6 F 95 H 20 130/70 100 01/04/17 19:38 01/04/17 19:38 01/04/17 19:38 01/04/17 19:38 01/04/17 19:38 Heart Score/ECG Review - History History: Highly suspicious - Electrocardiogram EKG: Non specific repolarization disturbance - Age Age: 45-65 - Risk Factors Risk Factors Heart Score: Yes Hx Hypercholesterolemia, Yes Hx Hypertension, Yes Hx Diabetes, Yes Smoking History Based on the list above the patient has:: >/=3 risk factors or Hx atherosclerotic disease - Troponin Troponin: >/=3x normal limit - Score Heart Score - Total: 8 ED Treatment Course - LABORATORY CBC & Chemistry Diagram: 01/04/17 21:50 01/04/17 21:50 - RADIOLOGY Radiology Studies Ordered: Category Date Time Status CHEST X-RAY PORTABLE* [RAD] Stat Radiology 01/04/17 20:06 Taken Medical Decision Making - Medical Decision Making 01/04/17 23:36 61-year-old black female with past medical history of hypertension, hyperlipidemia, diabetes, CAD s/p PA 2003 (CABG in 2003 with stent placement), systolic CHF s/p ICD, COPD current smoker, hypothyroidism, kidney stones presents to the emergency department today for chest pain; shortness of breath; and pain and swelling of b/l lower extremities; and lower abdominal pain. -CBC, CMP PT/INR, Mg, card profile, BNP -EKG, CXR -Ultrasound b/l LE r/o DVT Laboratory Tests 01/04/17 21:50 Sodium 130 L Potassium 3.0 L Creatinine 1.2 H D Total Bilirubin 9.9 H D AST 68 H D Creatine Kinase 623 H CK-MB (CK-2) 11.364 H Troponin I 0.57 H B-Natriuretic Peptide 2181.66 H 01/04/17 23:37 Trop 0.57, Heart Score 8 Patient bili 9.9, markedly elevated from prior. Patient is s/p cholecystecomty , will do abdominal ultrasound to eval for choledocholithiasis. Will require inpatient admission to [facility] for cards consult. *DC/Admit/Observation/Transfer Diagnosis at time of Disposition: Elevated troponin, Hyperbilirubinemia CHF (congestive heart failure) Qualifiers: Congestive heart failure type: systolic Congestive heart failure chronicity: chronic Qualified Code(s): I50.22 - Chronic systolic (congestive) heart failure Abdominal pain Qualifiers: Abdominal location: lower abdomen, unspecified Qualified Code(s): R10.30 - Lower abdominal pain, unspecified - Discharge Dispostion Admit: Yes
--- NOTE | 2017-01-04 21:10 | PDOC ---
*Physical Exam - Vital Signs Last Vital Signs Temp Pulse Resp BP Pulse Ox 97.6 F 95 H 20 130/70 100 01/04/17 19:38 01/04/17 19:38 01/04/17 19:38 01/04/17 19:38 01/04/17 19:38 ED Treatment Course - LABORATORY CBC & Chemistry Diagram: 01/08/17 05:20 01/08/17 05:20 Medical Decision Making - Medical Decision Making 01/04/17 21:09 agree with care from [facility] *DC/Admit/Observation/Transfer Diagnosis at time of Disposition: CHF (congestive heart failure), Elevated troponin, Abdominal pain, Hyperbilirubinemia
[2017-01-04 22:07] LABS: BASOPHIL 0.4 % (0-2.0); MCH 27.3 pg (25.7-33.7); MCHC 32.5 g/dl (32.0-36.0); MEAN CELL VOLUME 84.1 fl (80-96); MEAN PLT VOLUME 9.7 fl (7.5-11.1); NEUTROPHILS 68.8 % (42.8-82.8); PLATELET COUNT 199 K/MM3 (134-434); RDW 20.2 % (11.6-15.6); WHITE BLOOD COUNT 7.1 K/mm3 (4.0-10.0)
[2017-01-04 22:33] LABS: ALBUMIN 2.8 g/dl (3.4-5.0); ANION GAP 12 (8-16); CALCIUM 8.2 mg/dL (8.5-10.1); CO2 25 mmol/L (21-32); CREATININE 1.2 mg/dL (0.55-1.02); GLUCOSE,RANDOM 109 mg/dL (74-106); MAGNESIUM 1.8 mg/dL (1.8-2.4); SGOT/AST 68 U/L (15-37); SGPT/ALT 28 U/L (12-78)
[2017-01-04 22:38] LABS: ALK PHOS 168 U/L (45-117); BILIRUBIN,TOTAL 9.9 mg/dL (0.2-1.0); CPK 623 IU/L (26-192); TOT PROT 6.5 g/dl (6.4-8.2)
[2017-01-04 22:48] LABS: TROPONIN I 0.57 ng/ml (0.00-0.05)
[2017-01-04] MEDS ORDERED: POTASSIUM CHLORIDE TABS 20 MEQ TABLET.ER (FP) PO ONE (23:23)
[2017-01-04] MEDS ORDERED: SODIUM CHLORIDE 0.9%/KCL 1,000 ML IV SCH (23:30)
[2017-01-05] MEDS ORDERED: POTASSIUM CHLORIDE TABS 20 MEQ TABLET.ER (FP) PO ONE ×3 (00:16→07:37)
--- NOTE | 2017-01-05 03:13 | HP ---
CHIEF COMPLAINT: chest pain and SOB PCP: Carissa, Cardiology: Fauzia HISTORY OF PRESENT ILLNESS: This is a 61 year old female with chronic abdominal pain (thought to be due to liver cirrhosis/biliary tree strictures s/p lap naomi for acalcalous cholecystitis 05/05), hyperbilirubinemia, HTN, HLD, DM, CAD s/p [place] 2003, CABG in 2003 s/p stents2, Systolic CHF s/p ICD/Pacemaker, COPD, current smoker, hypothyroid & peripheral neuropathy presented with right sided chest pain and SOB as per ED provided. Upon exam pt denied ever having chest pain and states that she has abdominal pain. When asked where the pain is she rubs the right side of her abdomen and says "right here near my umbilicus." Pt also reports increased swelling to her legs but reports that she doesn't take her morning lasix if she is going out. ER course was notable for: (1) Troponin 0.57 (2) K 3.0 (3) Bili 9.9 Recent Travel: pt denies PAST MEDICAL HISTORY: HTN HLD CAD s/p AK 2003 s/p CABG and subsequesnt stents Pulmonary HTN DM with peripheral neuropathy hypothyroid kidney stones cirrhosis chronic back pain OA diverticulosis PAST SURGICAL HISTORY: CABG stent ICD/PPM 11/2014 PEG s/p reversal cholecystectomy 04/2016 Social History: Smoking: still actively smokes "3 cig/day", started smoking age 12, 1ppd Alcohol: pt denies Drugs: pt denies Family History: mother age 94, heart attack father age 71, heart disease mult siblings with DM and heart disease daughter with DM Allergies aspirin Allergy (Mild, Verified 01/04/17 19:48) Rash banana Allergy (Verified 12/04/16 15:17) Hives tomato Allergy (Verified 12/04/16 15:17) HOME MEDICATIONS: 3 Medication Instructions Recorded Calamine 8% Topical Lotion - 1 applic TP BID PRN #0 bottle 08/04/16 Clopidogrel Bisulfate [Plavix -] 75 mg PO DAILY #30 tablet 08/04/16 Levothyroxine [Synthroid -] 75 mcg PO DAILY #30 tab 08/04/16 Mineral Oil/Petrolat,Wht/Water 1 applic TP DAILY PRN #0 jar 08/04/16 [Eucerin (Large Jar) -] Spironolactone 50 mg PO DAILY #30 tablet 08/04/16 Furosemide [Lasix -] 80 mg PO BID #60 tablet 08/27/16 Potassium Chloride 20 meq PO DAILY #30 tab 08/27/16 Atorvastatin Ca [Lipitor] 20 mg PO HS 09/08/16 Diphenhydramine HCl [Benadryl 25 mg PO Q6H PRN #0 tab 11/23/16 Capsule -] Magnesium Oxide [Mag-Ox -] 400 mg PO DAILY #30 tablet 11/23/16 Metoprolol Succinate [Toprol Xl] 100 mg PO DAILY #30 tab.er.24h 11/23/16 REVIEW OF SYSTEMS CONSTITUTIONAL: Absent: fever, chills, diaphoresis, generalized weakness, malaise, loss of appetite, weight change HEENT: Absent: rhinorrhea, nasal congestion, throat pain, throat swelling, difficulty swallowing, mouth swelling, ear pain, eye pain, visual changes CARDIOVASCULAR: Present: chest pain Absent: syncope, palpitations, irregular heart rate, lightheadedness, peripheral edema RESPIRATORY: Present: shortness of breath Absent: cough, dyspnea with exertion, orthopnea, wheezing, stridor, hemoptysis GASTROINTESTINAL: Present: abdominal pain, reports last BM 3pm, normal Absent: abdominal distension, nausea, vomiting, diarrhea, constipation, melena, hematochezia GENITOURINARY: Absent: dysuria, frequency, urgency, hesitancy, hematuria, flank pain, genital pain MUSCULOSKELETAL: Absent: myalgia, arthralgia, joint swelling, back pain, neck pain SKIN: Absent: rash, itching, pallor HEMATOLOGIC/IMMUNOLOGIC: Absent: easy bleeding, easy bruising, lymphadenopathy, frequent infections ENDOCRINE: Absent: unexplained weight gain, unexplained weight loss, heat intolerance, cold intolerance NEUROLOGIC: Absent: headache, focal weakness or paresthesias, dizziness, unsteady gait, seizure, mental status changes, bladder or bowel incontinence PSYCHIATRIC: Absent: anxiety, depression, suicidal or homicidal ideation, hallucinations. PHYSICAL EXAMINATION Vital Signs - 24 hr 3 01/04/17 19:38 Temperature 97.6 F Pulse Rate 95 H Respiratory 20 Rate Blood Pressure 130/70 O2 Sat by Pulse 100 Oximetry (%) GENERAL: Awake, alert, and fully oriented, in no acute distress. HEAD: Normal with no signs of trauma. EYES: Pupils equal, round and reactive to light, extraocular movements intact, sclera anicteric, conjunctiva clear. No lid lag. EARS, NOSE, THROAT: Ears normal, nares patent, oropharynx clear without exudates. Moist mucous membranes. NECK: Normal range of motion, supple without lymphadenopathy, JVD, or masses. LUNGS: Breath sounds equal, clear to auscultation bilaterally. No wheezes, and no crackles. No accessory muscle use. HEART: Regular rate and rhythm, normal S1 and S2 without murmur, rub or gallop. ABDOMEN: Soft, nontender, softly distended, normoactive bowel sounds, no guarding, no rebound, no masses. No hepatomegaly or splenomegaly. MUSCULOSKELETAL: Normal range of motion at all joints. No bony deformities or tenderness. No CVA tenderness. UPPER EXTREMITIES: 2+ pulses, warm, well-perfused. No cyanosis. No clubbing. No peripheral edema. LOWER EXTREMITIES: 2+ pulses, warm, well-perfused. No calf tenderness. No peripheral edema. NEUROLOGICAL: Cranial nerves II-XII intact. Normal speech. Normal gait. PSYCHIATRIC: Cooperative. Good eye contact. Appropriate mood and affect. SKIN: Warm, dry, normal turgor, no rashes or lesions noted, normal capillary refill. Laboratory Results - last 24 hr 3 01/04/17 01/04/17 21:50 21:50 WBC 7.1 RBC 4.55 Hgb 12.4 Hct 38.2 MCV 84.1 MCH 27.3 MCHC 32.5 RDW 20.2 H Plt Count 199 MPV 9.7 Neutrophils % 68.8 Lymphocytes % 15.7 Monocytes % 15.1 H Eosinophils % 0.0 Basophils % 0.4 Sodium 130 L Potassium 3.0 L Chloride 93 L Carbon Dioxide 25 Anion Gap 12 BUN 14 Creatinine 1.2 H D Creat Clearance w eGFR 45.37 Random Glucose 109 H D Calcium 8.2 L Magnesium 1.8 Total Bilirubin 9.9 H D AST 68 H D ALT 28 D Alkaline Phosphatase 168 H Creatine Kinase 623 H Creatine Kinase Index 1.8 CK-MB (CK-2) 11.364 H Troponin I 0.57 H B-Natriuretic Peptide 2181.66 H Total Protein 6.5 Albumin 2.8 L ECG: NSR< rate 97, QTC 525 right axis deviation cannot r/o septal infact, age indetermined no acute ST/T changes when compared with ECG 12/04, essentially unchanged CXR official read pending large heart, no acute infiltrates or effusions noted ASSESSMENT/PLAN: 61yF with PMH chronic abdominal pain (thought to be due to liver cirrhosis/ biliary tree strictures s/p lap naomi for acalcalous cholecystitis 05/05), hyperbilirubinemia, HTN, HLD, DM, CAD s/p [place] 2003, CABG in 2003 s/p stents2, Systolic CHF s/p ICD/Pacemaker, COPD, current smoker, hypothyroid & peripheral neuropathy presented with report of chest pain and SOB. She is being admitted for further evaluation of same. chest pain - troponin elevated above pt normal baseline (0.1-0.2) - oxygen given, pt allergic to ASA, takes daily toprol - trend troponin x 2 more - cardiology consult-pt states she did not f/u with cardiology after last visit as recommended because her appointment wasn't until January CHF - lisinopril not on home med list, pt unsure if she is still taking it, will restart same - cont other home meds: toprol, lasix, spironolactone, potassium HTN - BP stable, cont home meds with addition of lisinopril. Monitor BMP/renal function with same. HLD - cont lipitor Hypokalemia - given po potassium in ED, BMP @ 4am with troponin - DC NS with 20Kcl as pt with severe systolic CHF, will cont po Abdominal pain with hyperbilirubinemia - chronic but now with elevated bili above baseline - u/s abd pending - consider GI consult - may need further imaging of biliary tree DM - sugar stable on previous admissions, monitor sugar with BMP in am and if elevated, initiate fingersticks COPD - stable at present, monitor for exacerbation hypothyroid - cont synthroid DVT PPX - heparin BID FEN - defer IVF, tolerating po - hypokalemia repleted, repeat BMP @ 4am - diabetic, low sodium diet Dispo: Pt currently requires inpatient management of her emergent condition. Visit type - Emergency Visit Emergency Visit: Yes ED Registration Date: 01/04/17 Care time: The patient presented to the Emergency Department on the above date and was hospitalized for further evaluation of their emergent condition. - New Patient This patient is new to me today: Yes Date on this admission: 01/05/17 - Critical Care Critical Care patient: No
[2017-01-05 06:20] LABS: ANION GAP 12 (8-16); CALCIUM 8.4 mg/dL (8.5-10.1); CO2 26 mmol/L (21-32); CREATININE 1.1 mg/dL (0.55-1.02); GLUCOSE,RANDOM 110 mg/dL (74-106); MAGNESIUM 1.8 mg/dL (1.8-2.4); PHOSPHOROUS 2.4 mg/dL (2.5-4.9)
[2017-01-05 06:34] LABS: CPK 518 IU/L (26-192)
[2017-01-05 06:41] LABS: TROPONIN I 0.72 ng/ml (0.00-0.05)
[2017-01-05] MEDS ORDERED: POTASSIUM CHLORIDE ORAL LIQUID 20 MEQ/15 ML ONE (07:32)
[2017-01-05] MEDS ORDERED: FUROSEMIDE 40 MG TABLET (FP) ONE (07:32)
[2017-01-05] MEDS ORDERED: LEVOTHYROXINE NA 25 MCG TABLET (FP) ONE (07:32)
[2017-01-05] MEDS: LEVOTHYROXINE NA 75 MCG TABLET (FP) PO SCH (07:47)
[2017-01-05] MEDS: FUROSEMIDE 40 MG TABLET (FP) PO SCH ×2 (07:47→15:00)
[2017-01-05] MEDS ORDERED: POTASSIUM CHLORIDE TABS 20 MEQ TABLET.ER (FP) PO SCH (10:00)
[2017-01-05] MEDS: SPIRONOLACTONE 25 MG TABLET (FP) PO SCH (11:19)
[2017-01-05] MEDS: POTASSIUM CHLORIDE TABS 20 MEQ TABLET.ER (FP) PO SCH ×2 (11:19→21:40)
[2017-01-05] MEDS: METOPROLOL SUCCINATE 100 MG TAB.SR.24H (FP) PO SCH (11:19)
[2017-01-05] MEDS: HEPARIN NA (PORCINE) 5,000 UNITS/ML 1ML VIAL SQ SCH ×2 (11:19→21:39)
[2017-01-05] MEDS: CLOPIDOGREL BISULFATE 75 MG TABLET (FP) PO SCH (11:19)
[2017-01-05] MEDS: MAGNESIUM OXIDE 400 MG TABLET (FP) PO SCH (11:19)
[2017-01-05 12:20] LABS: BASOPHIL 0.5 % (0-2.0); MCH 26.6 pg (25.7-33.7); MCHC 31.7 g/dl (32.0-36.0); MEAN PLT VOLUME 9.3 fl (7.5-11.1); NEUTROPHILS 72.6 % (42.8-82.8); PLATELET COUNT 181 K/MM3 (134-434); RDW 20.4 % (11.6-15.6); WHITE BLOOD COUNT 6.8 K/mm3 (4.0-10.0)
[2017-01-05 12:53] LABS: ANION GAP 10 (8-16); CALCIUM 8.6 mg/dL (8.5-10.1); CO2 28 mmol/L (21-32); GLUCOSE,RANDOM 94 mg/dL (74-106)
[2017-01-05 13:11] LABS: TROPONIN I 0.61 ng/ml (0.00-0.05)
[2017-01-05] MEDS ORDERED: POTASSIUM CHLORIDE ORAL LIQUID 20 MEQ/15 ML PO ONE (14:00)
[2017-01-05 14:36] LABS: ANISOCYTOSIS 2+; MACROCYTOSIS 2+
[2017-01-05 14:37] LABS: HYPOCHROMIA 3+; SCHISTOCYTES 1+; TARGET CELLS 2+
[2017-01-05] MEDS: ATORVASTATIN CA 20 MG TABLET (FP) PO SCH (21:39)
[2017-01-06] MEDS: LEVOTHYROXINE NA 75 MCG TABLET (FP) PO SCH (06:19)
[2017-01-06] MEDS: FUROSEMIDE 40 MG TABLET (FP) PO SCH ×2 (06:19→13:36)
[2017-01-06 09:01] LABS: BASOPHIL 0.5 % (0-2.0); MCH 27.6 pg (25.7-33.7); MCHC 33.1 g/dl (32.0-36.0); MEAN CELL VOLUME 83.4 fl (80-96); MEAN PLT VOLUME 9.8 fl (7.5-11.1); NEUTROPHILS 67.8 % (42.8-82.8); PLATELET COUNT 190 K/MM3 (134-434); RDW 20.4 % (11.6-15.6); WHITE BLOOD COUNT 6.2 K/mm3 (4.0-10.0)
[2017-01-06 09:25] LABS: ALBUMIN 2.9 g/dl (3.4-5.0); ANION GAP 12 (8-16); CALCIUM 8.7 mg/dL (8.5-10.1); CO2 30 mmol/L (21-32); CREATININE 1.1 mg/dL (0.55-1.02); GLUCOSE,RANDOM 74 mg/dL (74-106); SGOT/AST 64 U/L (15-37); SGPT/ALT 29 U/L (12-78)
[2017-01-06 09:26] LABS: ALK PHOS 179 U/L (45-117); BILIRUBIN,TOTAL 10.2 mg/dL (0.2-1.0); TOT PROT 6.6 g/dl (6.4-8.2)
[2017-01-06] MEDS: HEPARIN NA (PORCINE) 5,000 UNITS/ML 1ML VIAL SQ SCH ×2 (09:40→21:38)
[2017-01-06] MEDS: SPIRONOLACTONE 25 MG TABLET (FP) PO SCH (09:40)
[2017-01-06] MEDS: POTASSIUM CHLORIDE TABS 20 MEQ TABLET.ER (FP) PO SCH ×2 (09:41→21:38)
[2017-01-06] MEDS: CLOPIDOGREL BISULFATE 75 MG TABLET (FP) PO SCH (09:41)
[2017-01-06] MEDS: MAGNESIUM OXIDE 400 MG TABLET (FP) PO SCH (09:41)
[2017-01-06] MEDS: METOPROLOL SUCCINATE 100 MG TAB.SR.24H (FP) PO SCH (09:41)
[2017-01-06] MEDS ORDERED: KCL 10 MEQ IVPB 100 ML IVPB SCH (10:30)
[2017-01-06 12:48] LABS: MAGNESIUM 1.5 mg/dL (1.8-2.4)
[2017-01-06] MEDS ORDERED: PT OWN MED DRAWER 7, Y5N ONE (12:54)
[2017-01-06] MEDS ORDERED: POTASSIUM CHLORIDE TABS 20 MEQ TABLET.ER (FP) PO ONE (13:00)
[2017-01-06] MEDS ORDERED: MAGNESIUM OXIDE 400 MG TABLET (FP) PO ONE (13:30)
[2017-01-06 14:14] LABS: CPK 496 IU/L (26-192); TROPONIN I 0.34 ng/ml (0.00-0.05)
[2017-01-06] MEDS ORDERED: MAGNESIUM SULF 50% (8.12 MEQ/2 ML-1 GM VIAL) IVPB ONE (14:35)
[2017-01-06] MEDS ORDERED: METOCLOPRAMIDE HCL INJECTION 10 MG/2 ML VIAL IVPB ONE (15:44)
--- NOTE | 2017-01-06 16:31 | PN ---
Progress Note (short form) - Note Progress Note: Subjective: The patient was seen and examined at the bedside. She is awake and alert but is refusing to speak much. She just states her stomach hurts and then begins to vomit after receiving po potassium. Current Medications Generic Name Dose Route Start Last Admin Trade Name Kamilah PRN Reason Stop Dose Admin Atorvastatin Calcium 20 mg 01/05/17 22:00 01/05/17 21:39 Lipitor - PO 20 mg HS RINA Administration Clopidogrel Bisulfate 75 mg 01/05/17 10:00 01/06/17 09:41 Plavix - PO 75 mg DAILY RINA Administration Furosemide 80 mg 01/05/17 06:00 01/06/17 13:36 Lasix - PO 80 mg BIDLASIX RINA Administration Heparin Sodium (Porcine) 5,000 unit 01/05/17 10:00 01/06/17 09:40 Heparin - SQ 5,000 unit BID RINA Administration Levothyroxine Sodium 75 mcg 01/05/17 07:00 01/06/17 06:19 Synthroid - PO 75 mcg AM RINA Administration Magnesium Oxide 400 mg 01/05/17 10:00 01/06/17 09:41 Mag-Ox - PO 400 mg DAILY RINA Administration Metoprolol Succinate 100 mg 01/05/17 10:00 01/06/17 09:41 Toprol Xl - PO 100 mg DAILY RINA Administration Potassium Chloride 40 meq 01/05/17 10:00 01/06/17 09:41 K-Dur - PO 40 meq BID RINA Administration Spironolactone 50 mg 01/05/17 10:00 01/06/17 09:40 Aldactone - PO 50 mg DAILY RINA Administration Objective: Vital Signs Period Temp Pulse Resp BP Sys/Santoro Pulse Ox Last 24 Hr 97.6 F-98.4 F 72-98 16-28 90-127/63-86 98-98 Physical Exam: Patient refused CBCD WBC 6.2 K/mm3 (4.0-10.0) 01/06/17 08:45 RBC 4.59 M/mm3 (3.60-5.2) 01/06/17 08:45 Hgb 12.7 GM/dL (10.7-15.3) 01/06/17 08:45 Hct 38.3 % (32.4-45.2) 01/06/17 08:45 MCV 83.4 fl (80-96) 01/06/17 08:45 MCHC 33.1 g/dl (32.0-36.0) 01/06/17 08:45 RDW 20.4 % (11.6-15.6) H 01/06/17 08:45 Plt Count 190 K/MM3 (134-434) 01/06/17 08:45 MPV 9.8 fl (7.5-11.1) 01/06/17 08:45 CMP Sodium 134 mmol/L (136-145) L 01/06/17 08:45 Potassium 2.9 mmol/L (3.5-5.1) L* 01/06/17 08:45 Chloride 92 mmol/L (98-107) L 01/06/17 08:45 Carbon Dioxide 30 mmol/L (21-32) 01/06/17 08:45 Anion Gap 12 (8-16) 01/06/17 08:45 BUN 16 mg/dL (7-18) 01/06/17 08:45 Creatinine 1.1 mg/dL (0.55-1.02) H 01/06/17 08:45 Creat Clearance w eGFR 50.17 (>60) 01/06/17 08:45 Random Glucose 74 mg/dL (74-106) D 01/06/17 08:45 Calcium 8.7 mg/dL (8.5-10.1) 01/06/17 08:45 Total Bilirubin 10.2 mg/dL (0.2-1.0) H 01/06/17 08:45 AST 64 U/L (15-37) H 01/06/17 08:45 ALT 29 U/L (12-78) 01/06/17 08:45 Alkaline Phosphatase 179 U/L (45-117) H 01/06/17 08:45 Total Protein 6.6 g/dl (6.4-8.2) 01/06/17 08:45 Albumin 2.9 g/dl (3.4-5.0) L 01/06/17 08:45 CARDIAC ENZYMES Creatine Kinase 496 IU/L (26-192) H 01/06/17 08:45 Troponin I 0.34 ng/ml (0.00-0.05) H 01/06/17 08:45 Assessment: 61 year old with chronic abdominal pain (thought to be due to liver cirrhosis/biliary tree strictures s/p lap naomi for acalcalous cholecystitis ), hyperbilirubinemia, HTN, HLD, DM II, CAD s/p [place] 2003, CABG in 2003 s/p stents2, Systolic CHF s/p ICD/Pacemaker, COPD, current smoker, hypothyroid & peripheral neuropathy presented with abdominal pain referring up to her chest. Plan: 1) Cardiology: Elevated troponins - Trending down - Patient allergic to ASA - Continue toprol xl - Continue Plavix - Continue Lipitor - Discussed with Dr. Cage, continue current management, will likely need transfer for cardiac cath this week CABG s/p stents x2 - As above HTN - As above Chronic systolic heart failure - Continue Aldactone - Continue Lasix Prolonged qtc - Hold all medications that prolongs qtc 2) GI: Abdominal pain, nausea, vomiting - All occurred after po potassium replacement - Reglan given and vomiting resolved 3) Endocrine: Hypothyroidism - Continue synthroid 4) Pulmonary: COPD - No active issues 5) F/E/N: - Hypokalemia: replete, recheck this PM - Hypomagnesemia: replete - Diabetic, sodium controlled diet 6) Prophylaxis: - OOB ambulating - Heparin 5,000u sq tid 7) Dispo: - Requires continued inpatient care CODE STATUS: FULL CODE Visit type - Emergency Visit Emergency Visit: Yes ED Registration Date: 01/05/17 Care time: The patient presented to the Emergency Department on the above date and was hospitalized for further evaluation of their emergent condition. - New Patient This patient is new to me today: Yes Date on this admission: 01/06/17 - Critical Care Critical Care patient: No
--- NOTE | 2017-01-06 18:42 | EKG ---
Test Reason : Blood Pressure : / mmHG Vent. Rate : 097 BPM Atrial Rate : 097 BPM P-R Int : 186 ms QRS Dur : 134 ms QT Int : 414 ms P-R-T Axes : 064 125 -13 degrees QTc Int : 525 ms NORMAL SINUS RHYTHM RIGHT AXIS DEVIATION NON-SPECIFIC INTRA-VENTRICULAR CONDUCTION BLOCK CANNOT RULE OUT ANTEROSEPTAL INFARCT (CITED ON OR BEFORE 04-DEC-2016) ABNORMAL ECG WHEN COMPARED WITH ECG OF 04-DEC-2016 15:13, PREMATURE VENTRICULAR COMPLEXES ARE NO LONGER PRESENT Confirmed by SUDEEP BURTON MD ([id number]) on 01/06/2017 6:42:17 PM Referred By: Confirmed By:SUDEEP BURTON MD
[2017-01-06] MEDS: ATORVASTATIN CA 20 MG TABLET (FP) PO SCH (21:38)
[2017-01-06 22:15] LABS: ANION GAP 16 (8-16); CALCIUM 8.6 mg/dL (8.5-10.1); CO2 20 mmol/L (21-32); CREATININE 1.4 mg/dL (0.55-1.02)
[2017-01-06 22:21] LABS: GLUCOSE,RANDOM 38 mg/dL (74-106)
[2017-01-07 06:51] LABS: ALBUMIN 2.7 g/dl (3.4-5.0); ANION GAP 13 (8-16); CO2 28 mmol/L (21-32); SGOT/AST 65 U/L (15-37); SGPT/ALT 28 U/L (12-78)
[2017-01-07 06:54] LABS: ALK PHOS 165 U/L (45-117); BILIRUBIN,TOTAL 10.9 mg/dL (0.2-1.0); CREATININE 1.7 mg/dL (0.55-1.02); TOT PROT 6.1 g/dl (6.4-8.2)
[2017-01-07 06:58] LABS: GLUCOSE,RANDOM 49 mg/dL (74-106)
[2017-01-07] MEDS: SODIUM CHLORIDE 1,000 ML IV SCH ×2 (07:06→21:50)
[2017-01-07] MEDS: FUROSEMIDE 40 MG TABLET (FP) PO SCH ×2 (07:37→17:23)
[2017-01-07] MEDS: HEPARIN NA (PORCINE) 5,000 UNITS/ML 1ML VIAL SQ SCH ×3 (07:37→21:49)
[2017-01-07] MEDS: LEVOTHYROXINE NA 75 MCG TABLET (FP) PO SCH (07:37)
[2017-01-07] MEDS: POTASSIUM CHLORIDE TABS 20 MEQ TABLET.ER (FP) PO SCH ×2 (09:47→21:49)
[2017-01-07] MEDS: METOPROLOL SUCCINATE 100 MG TAB.SR.24H (FP) PO SCH (09:48)
[2017-01-07] MEDS: CLOPIDOGREL BISULFATE 75 MG TABLET (FP) PO SCH (09:48)
[2017-01-07] MEDS: SPIRONOLACTONE 25 MG TABLET (FP) PO SCH (09:48)
[2017-01-07] MEDS: MAGNESIUM OXIDE 400 MG TABLET (FP) PO SCH (09:48)
--- NOTE | 2017-01-07 10:34 | CON.CARD ---
Consult Consult Specialty:: cardiology Reason for Consultation:: dyspnea; bilteral leg swelling. - History of Present Illness History of Present Illness: 61 yo black woman with PMH of hypertension, hyperlipidemia, diabetes, CAD s/p [place] 2003 (CABG in 2003 with stent placement), severe systolic CHF s/p ICD, COPD current smoker, hypothyroidism, kidney stones, anxiety/depression, presents to the emergency department today for chest pain and shortness of breath. Patient states the shortness of breath started this morning and has worsened throughout the day. She reports that her legs have been swollen and she saw her federal appellate clerk recently and he "cut something out on the front of my R leg." She states that she is having pain and swelling to her lower legs bilaterally. She also reports pain to her lower abdomen "ever since I got my gallbladder out." She denies any fever, chills, nausea, vomiting, diarrhea, cough, and then refused to answer any more questions. PCP is Dr. Ferrer/Marybeth, Foam Fabricator is Dr. Cage. 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 No: Asthma Gastrointestinal: Yes: Diverticulosis, Other (Chronic abdominal pain and food intolerances. Had PEG placed 11/03 after suffering vocal cord damage ( EMS intubation). PEG was subsequently removed. ) Hepatobiliary: Yes: Cirrhosis (cardiac cirrhosis), Cholecystitis (s/p lap choly 05/05) Renal/: Yes: Renal Calculi Reproductive: Yes: Postmenopausal ...: No Psych: Yes: Depression Musculoskeletal: Yes: Chronic low back pain, Osteoarthritis Endocrine: Yes: Hypothyroidism - Past Surgical History Past Surgical History: Yes: AICD, CABG, Cholecystectomy, Colonoscopy, Joint Replacement (right THR), Stent (X2) - Alcohol/Substance Use Hx Alcohol Use: No History of Substance Use: reports: None - Smoking History Smoking history: Current every day smoker Have you smoked in the past 12 months: Yes Aproximately how many cigarettes per day: 4 - Social History Usual Living Arrangement: Alone ADL: Independent 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 History of Recent Travel: No Home Medications - Allergies Allergies/Adverse Reactions: Allergies Allergy/AdvReac Type Severity Reaction Status Date / Time aspirin Allergy Mild Rash Verified 01/04/17 19:48 banana Allergy Hives Verified 12/04/16 15:17 tomato Allergy Verified 12/04/16 15:17 - Home Medications Home Medications: Ambulatory Orders Calamine 8% Topical Lotion - 1 applic TP BID PRN #0 bottle 08/04/16 Clopidogrel Bisulfate [Plavix -] 75 mg PO DAILY #30 tablet 08/04/16 Levothyroxine [Synthroid -] 75 mcg PO DAILY #30 tab 08/04/16 Mineral Oil/Petrolat,Wht/Water [Eucerin (Large Jar) -] 1 applic TP DAILY PRN #0 jar 08/04/16 Spironolactone 50 mg PO DAILY #30 tablet 08/04/16 Furosemide [Lasix -] 80 mg PO BID #60 tablet 08/27/16 Potassium Chloride 20 meq PO DAILY #30 tab 08/27/16 Atorvastatin Ca [Lipitor] 20 mg PO HS 09/08/16 Diphenhydramine HCl [Benadryl Capsule -] 25 mg PO Q6H PRN #0 tab 11/23/16 Magnesium Oxide [Mag-Ox -] 400 mg PO DAILY #30 tablet 11/23/16 Metoprolol Succinate [Toprol Xl] 100 mg PO DAILY #30 tab.er.24h 11/23/16 Family Disease History - Family Disease History Family Disease History: Diabetes: Sister (s/p CABG in her 50s), Heart Disease: Father (had unknown cancer), Mother (lived to ), Sister, [place]: Father Review of Systems - Review of Systems Constitutional: reports: Weakness Eyes: reports: No Symptoms HENT: reports: No Symptoms Neck: reports: No Symptoms Cardiovascular: reports: Chest Pain, Shortness of Breath Respiratory: reports: SOB Gastrointestinal: reports: Other (chronic pulling sensation at site of gallbladder removal) Genitourinary: reports: No Symptoms Breasts: reports: No Symptoms Reported Musculoskeletal: reports: Joint Swelling, Muscle Weakness Neurological: reports: Weakness Psychiatric: reports: Anxiety, Depression - Risk Factors Known Risk Factors: Yes: Age, Diabetes Mellitus, Family History, Hypercholesterolemia, Hypertension, Race, Smoking, Other (severe systolic CHF) Vital Signs: Vital Signs Temperature 97.8 F 01/07/17 02:00 Pulse Rate 71 01/07/17 06:00 Respiratory Rate 18 01/07/17 06:00 Blood Pressure 105/73 01/07/17 06:00 O2 Sat by Pulse Oximetry (%) 98 01/06/17 20:33 Constitutional: Yes: Anxious Eyes: Yes: WNL HENT: Yes: WNL Neck: Yes: WNL Respiratory: Yes: Diminished Gastrointestinal: Yes: Soft Renal/: No: Anuria Cardiovascular: Yes: Pulse Irregular JVD: Yes Carotid Bruit: No PMI: Displaced Heart Sounds: Yes: S1, Split S2 Murmur: Yes: Systolic Murmur, Grade 2 Musculoskeletal: Yes: Muscle Weakness Extremities: Yes: Cool Edema: Yes Edema: LLE: 2+, RLE: 2+ Peripheral Pulses WNL: No Peripheral Pulses: 1+ Left Doralis Pedis, 1+ Right Dorsalis Pedis Integumentary: Yes: Venous Stasis Changes Neurological: Yes: Alert, Oriented, Weakness Psychiatric: Yes: Alert, Oriented, Other - Other Data Labs, Other Data: CBC, BMP 01/06/17 08:45 01/07/17 05:15 Troponin, BNP 01/06/17 08:45 Troponin I 0.34 H Troponin, BNP 01/06/17 08:45 Troponin I 0.34 H Ejection Fraction %: LVEF < 40 % Imaging - Results Chest X-ray: Image Reviewed (no acute pathology) Problem List - Problems (1) Chest pain of uncertain etiology Assessment/Plan: TNI 0.57 (in the past, TNI has been elevated, but always much less thn today's level). EKG: NSR; nonspecific IVCD; cannot r/o old ASMI (noted also on 12/04 EKG). Continue Clopidogrel.(reportedly allergic to ASA); f/u serial TNI. Continue beta blockers, Aldactone, ACEI. Stress MIBI when stable. Code(s): R07.89 - OTHER CHEST PAIN (2) Abdominal pain Code(s): R10.9 - UNSPECIFIED ABDOMINAL PAIN Qualifiers: Abdominal location: lower abdomen, unspecified Qualified Code(s): R10.30 - Lower abdominal pain, unspecified (3) Acute combined systolic and diastolic ACC/AHA stage C congestive heart failure Code(s): I50.41 - ACUTE COMBINED SYSTOLIC AND DIASTOLIC (CONGESTIVE) HRT FAIL (4) Elevated troponin Code(s): R74.8 - ABNORMAL LEVELS OF OTHER SERUM ENZYMES (5) Hyperbilirubinemia Code(s): E80.6 - OTHER DISORDERS OF BILIRUBIN METABOLISM (6) Hyperlipidemia Code(s): E78.5 - HYPERLIPIDEMIA, UNSPECIFIED (7) Hypertension Code(s): I10 - ESSENTIAL (PRIMARY) HYPERTENSION (8) Peripheral neuropathy Code(s): G62.9 - POLYNEUROPATHY, UNSPECIFIED Qualifiers: Peripheral neuropathy type: polyneuropathy, unspecified Qualified Code( s): G62.9 - Polyneuropathy, unspecified (9) Sphincter of Oddi dysfunction Code(s): K83.4 - SPASM OF SPHINCTER OF ODDI (10) Status post THR (total hip replacement) Code(s): Z96.649 - PRESENCE OF UNSPECIFIED ARTIFICIAL HIP JOINT (11) Hypokalemia Code(s): E87.6 - HYPOKALEMIA (12) Depression Code(s): F32.9 - MAJOR DEPRESSIVE DISORDER, SINGLE EPISODE, UNSPECIFIED (13) Diabetes Code(s): E11.9 - TYPE 2 DIABETES MELLITUS WITHOUT COMPLICATIONS Qualifiers: Diabetes mellitus type: type 2 Diabetes mellitus complication status: with unspecified complications Diabetes mellitus mcfp insulin use: with manager intermediate use Qualified Code(s): E11.8 - Type 2 diabetes mellitus with unspecified complications; Z79.4 - rodent exterminator (current) use of insulin (14) Fatty liver Code(s): K76.0 - FATTY (CHANGE OF) LIVER, NOT ELSEWHERE CLASSIFIED (15) Hypothyroidism Code(s): E03.9 - HYPOTHYROIDISM, UNSPECIFIED (16) ICD (implantable cardioverter-defibrillator) in place Code(s): Z95.810 - PRESENCE OF AUTOMATIC (IMPLANTABLE) CARDIAC DEFIBRILLATOR (17) NSVT (nonsustained ventricular tachycardia) Code(s): I47.2 - VENTRICULAR TACHYCARDIA (18) Sleep apnea Code(s): G47.30 - SLEEP APNEA, UNSPECIFIED (19) Tobacco use disorder Code(s): Z72.0 - TOBACCO USE
--- NOTE | 2017-01-07 10:55 | PN ---
Progress Note, Physician Chief Complaint: Pt lying in bed; c/o heaviness in her legs; dyspnea with mild exertion. History of Present Illness: 61 yo black woman with PMH of hypertension, hyperlipidemia, diabetes, CAD s/p [place] 2003 (CABG in 2003 with stent placement), severe systolic CHF s/p ICD, COPD current smoker, hypothyroidism, kidney stones, anxiety/depression, presents to the emergency department today for chest pain and shortness of breath. Patient states the shortness of breath started this morning and has worsened throughout the day. She reports that her legs have been swollen and she saw her foundation coordinator recently and he "cut something out on the front of my R leg." She states that she is having pain and swelling to her lower legs bilaterally. She also reports pain to her lower abdomen "ever since I got my gallbladder out." She denies any fever, chills, nausea, vomiting, diarrhea, cough, and then refused to answer any more questions. PCP is Dr. Ferrer/Marybeth, Leather Stitcher is Dr. Cage. - Current Medication List Current Medications: Active Medications Atorvastatin Calcium (Lipitor -) 20 mg PO HS [facility] Last Admin: 01/06/17 21:38 Dose: 20 mg Clopidogrel Bisulfate (Plavix -) 75 mg PO DAILY [facility] Last Admin: 01/07/17 09:48 Dose: 75 mg Furosemide (Lasix -) 80 mg PO BIDLASIX [facility] Last Admin: 01/07/17 07:37 Dose: 80 mg Heparin Sodium (Porcine) (Heparin -) 5,000 unit SQ TID [facility] Last Admin: 01/07/17 07:37 Dose: 5,000 unit Sodium Chloride (Normal Saline -) 1,000 mls @ 10 mls/hr IV ASDIR [facility] Last Admin: 01/07/17 07:06 Dose: Not Given Levothyroxine Sodium (Synthroid -) 75 mcg PO AM [facility] Last Admin: 01/07/17 07:37 Dose: 75 mcg Magnesium Oxide (Mag-Ox -) 400 mg PO DAILY [facility] Last Admin: 01/07/17 09:48 Dose: 400 mg Metoprolol Succinate (Toprol Xl -) 100 mg PO DAILY [facility] Last Admin: 01/07/17 09:48 Dose: 100 mg Potassium Chloride (K-Dur -) 40 meq PO BID [facility] Last Admin: 01/07/17 09:47 Dose: 40 meq Spironolactone (Aldactone -) 50 mg PO DAILY [facility] Last Admin: 01/07/17 09:48 Dose: 50 mg - Objective Vital Signs: Vital Signs Temperature 97.8 F 01/07/17 02:00 Pulse Rate 71 01/07/17 06:00 Respiratory Rate 18 01/07/17 06:00 Blood Pressure 105/73 01/07/17 06:00 O2 Sat by Pulse Oximetry (%) 98 01/06/17 20:33 Constitutional: Yes: Anxious Eyes: Yes: WNL HENT: Yes: WNL Neck: Yes: WNL Cardiovascular: Yes: S1, S2 (split) Respiratory: Yes: Regular Gastrointestinal: Yes: Soft ...Rectal Exam: Yes: Deferred Genitourinary: No: Anuria Breast(s): Yes: WNL Extremities: Yes: Cool Edema: Yes Edema: LLE: 2+, RLE: 2+ Peripheral Pulses WNL: No Peripheral Pulses: Left Doralis Pedis: 1+, Right Dorsalis Pedis: 1+ Integumentary: Yes: Venous Stasis Changes Neurological: Yes: Alert, Oriented, Weakness Labs: CBC, BMP 01/06/17 08:45 01/07/17 05:15 - ....Imaging Other: Image Reviewed (NSR; periods of paced rhythm) Problem List - Problems (1) Chest pain of uncertain etiology Assessment/Plan: TNI 0.7-->0.6 (in the past, TNI has been elevated, but always much less thn today's level). EKG: NSR; nonspecific IVCD; cannot r/o old ASMI (noted also on 12/04 EKG). Continue Clopidogrel.(reportedly allergic to ASA); f/u serial TNI. Continue beta blockers, Aldactone, ACEI. Stress MIBI when stable. Code(s): R07.89 - OTHER CHEST PAIN (2) Abdominal pain Assessment/Plan: has been occurring since cholecystectomy. Code(s): R10.9 - UNSPECIFIED ABDOMINAL PAIN Qualifiers: Abdominal location: lower abdomen, unspecified Qualified Code(s): R10.30 - Lower abdominal pain, unspecified (3) Acute combined systolic and diastolic ACC/AHA stage C congestive heart failure Code(s): I50.41 - ACUTE COMBINED SYSTOLIC AND DIASTOLIC (CONGESTIVE) HRT FAIL (4) Elevated troponin Code(s): R74.8 - ABNORMAL LEVELS OF OTHER SERUM ENZYMES (5) Hyperbilirubinemia Code(s): E80.6 - OTHER DISORDERS OF BILIRUBIN METABOLISM (6) Hyperlipidemia Code(s): E78.5 - HYPERLIPIDEMIA, UNSPECIFIED (7) Hypertension Code(s): I10 - ESSENTIAL (PRIMARY) HYPERTENSION (8) Peripheral neuropathy Code(s): G62.9 - POLYNEUROPATHY, UNSPECIFIED Qualifiers: Peripheral neuropathy type: polyneuropathy, unspecified Qualified Code( s): G62.9 - Polyneuropathy, unspecified (9) Sphincter of Oddi dysfunction Code(s): K83.4 - SPASM OF SPHINCTER OF ODDI (10) Status post THR (total hip replacement) Code(s): Z96.649 - PRESENCE OF UNSPECIFIED ARTIFICIAL HIP JOINT (11) Hypokalemia Code(s): E87.6 - HYPOKALEMIA (12) Depression Code(s): F32.9 - MAJOR DEPRESSIVE DISORDER, SINGLE EPISODE, UNSPECIFIED (13) Diabetes Code(s): E11.9 - TYPE 2 DIABETES MELLITUS WITHOUT COMPLICATIONS Qualifiers: Diabetes mellitus type: type 2 Diabetes mellitus complication status: with unspecified complications Diabetes mellitus ad terminal makeup operator insulin use: with halfway use Qualified Code(s): E11.8 - Type 2 diabetes mellitus with unspecified complications; Z79.4 - oysterman (current) use of insulin (14) Fatty liver Code(s): K76.0 - FATTY (CHANGE OF) LIVER, NOT ELSEWHERE CLASSIFIED (15) Hypothyroidism Code(s): E03.9 - HYPOTHYROIDISM, UNSPECIFIED (16) ICD (implantable cardioverter-defibrillator) in place Code(s): Z95.810 - PRESENCE OF AUTOMATIC (IMPLANTABLE) CARDIAC DEFIBRILLATOR (17) NSVT (nonsustained ventricular tachycardia) Assessment/Plan: Keep K+ 4.0-4.5, Mg 2.0-2.3; PO4 2.5. Code(s): I47.2 - VENTRICULAR TACHYCARDIA (18) Sleep apnea Code(s): G47.30 - SLEEP APNEA, UNSPECIFIED (19) Tobacco use disorder Assessment/Plan: the need to stop is paramount. Code(s): Z72.0 - TOBACCO USE
--- NOTE | 2017-01-07 12:44 | EKG ---
Test Reason : Blood Pressure : / mmHG Vent. Rate : 065 BPM Atrial Rate : 065 BPM P-R Int : 202 ms QRS Dur : 124 ms QT Int : 494 ms P-R-T Axes : 015 124 -39 degrees QTc Int : 513 ms NORMAL SINUS RHYTHM RIGHT AXIS DEVIATION CANNOT RULE OUT ANTERIOR INFARCT (CITED ON OR BEFORE 04-DEC-2016) ABNORMAL ECG WHEN COMPARED WITH ECG OF 04-JAN-2017 19:44, VENT. RATE HAS DECREASED BY 32 BPM Confirmed by RODRÍGUEZ MCDONNELL MD ([id number]) on 01/07/2017 12:43:41 PM Also confirmed by RODRÍGUEZ MCDONNELL MD ([id number]) on 01/07/2017 12:44:53 PM Referred By: Myranda PARR Confirmed By:RODRÍGUEZ MCDONNELL MD
[2017-01-07] MEDS ORDERED: POTASSIUM CHLORIDE TABS 20 MEQ TABLET.ER (FP) PO ONE (16:34)
--- NOTE | 2017-01-07 18:12 | PN ---
Progress Note (short form) - Note Progress Note: Subjective: The patient was seen and examined at the bedside. Patient refusing to speak Current Medications Generic Name Dose Route Start Last Admin Trade Name Kamilah PRN Reason Stop Dose Admin Atorvastatin Calcium 20 mg 01/05/17 22:00 01/05/17 21:39 Lipitor - PO 20 mg HS [facility] Administration Clopidogrel Bisulfate 75 mg 01/05/17 10:00 01/06/17 09:41 Plavix - PO 75 mg DAILY [facility] Administration Furosemide 80 mg 01/05/17 06:00 01/06/17 13:36 Lasix - PO 80 mg BIDLASIX [facility] Administration Heparin Sodium (Porcine) 5,000 unit 01/05/17 10:00 01/06/17 09:40 Heparin - SQ 5,000 unit BID [facility] Administration Levothyroxine Sodium 75 mcg 01/05/17 07:00 01/06/17 06:19 Synthroid - PO 75 mcg AM [facility] Administration Magnesium Oxide 400 mg 01/05/17 10:00 01/06/17 09:41 Mag-Ox - PO 400 mg DAILY [facility] Administration Metoprolol Succinate 100 mg 01/05/17 10:00 01/06/17 09:41 Toprol Xl - PO 100 mg DAILY [facility] Administration Potassium Chloride 40 meq 01/05/17 10:00 01/06/17 09:41 K-Dur - PO 40 meq BID [facility] Administration Spironolactone 50 mg 01/05/17 10:00 01/06/17 09:40 Aldactone - PO 50 mg DAILY [facility] Administration Objective: Vital Signs Period Temp Pulse Resp BP Sys/Santoro Pulse Ox Last 24 Hr 97.6 F-98.4 F 72-98 16-28 90-127/63-86 98-98 Physical Exam: Patient refused CBCD WBC 6.2 K/mm3 (4.0-10.0) 01/06/17 08:45 RBC 4.59 M/mm3 (3.60-5.2) 01/06/17 08:45 Hgb 12.7 GM/dL (10.7-15.3) 01/06/17 08:45 Hct 38.3 % (32.4-45.2) 01/06/17 08:45 MCV 83.4 fl (80-96) 01/06/17 08:45 MCHC 33.1 g/dl (32.0-36.0) 01/06/17 08:45 RDW 20.4 % (11.6-15.6) H 01/06/17 08:45 Plt Count 190 K/MM3 (134-434) 01/06/17 08:45 MPV 9.8 fl (7.5-11.1) 01/06/17 08:45 CMP Sodium 134 mmol/L (136-145) L 01/06/17 08:45 Potassium 2.9 mmol/L (3.5-5.1) L* 01/06/17 08:45 Chloride 92 mmol/L (98-107) L 01/06/17 08:45 Carbon Dioxide 30 mmol/L (21-32) 01/06/17 08:45 Anion Gap 12 (8-16) 01/06/17 08:45 BUN 16 mg/dL (7-18) 01/06/17 08:45 Creatinine 1.1 mg/dL (0.55-1.02) H 01/06/17 08:45 Creat Clearance w eGFR 50.17 (>60) 01/06/17 08:45 Random Glucose 74 mg/dL (74-106) D 01/06/17 08:45 Calcium 8.7 mg/dL (8.5-10.1) 01/06/17 08:45 Total Bilirubin 10.2 mg/dL (0.2-1.0) H 01/06/17 08:45 AST 64 U/L (15-37) H 01/06/17 08:45 ALT 29 U/L (12-78) 01/06/17 08:45 Alkaline Phosphatase 179 U/L (45-117) H 01/06/17 08:45 Total Protein 6.6 g/dl (6.4-8.2) 01/06/17 08:45 Albumin 2.9 g/dl (3.4-5.0) L 01/06/17 08:45 CARDIAC ENZYMES Creatine Kinase 496 IU/L (26-192) H 01/06/17 08:45 Troponin I 0.34 ng/ml (0.00-0.05) H 01/06/17 08:45 Assessment: 61 year old with chronic abdominal pain (thought to be due to liver cirrhosis/biliary tree strictures s/p lap naomi for acalcalous cholecystitis ), hyperbilirubinemia, HTN, HLD, DM II, CAD s/p [place] 2003, CABG in 2003 s/p stents2, Systolic CHF s/p ICD/Pacemaker, COPD, current smoker, hypothyroid & peripheral neuropathy presented with abdominal pain referring up to her chest. Plan: 1) Cardiology: Elevated troponins - Trending down - Patient allergic to ASA - Continue toprol xl - Continue Plavix - Continue Lipitor - Discussed with Dr. Cage, continue current management, will likely need transfer for cardiac cath this week CABG s/p stents x2 - As above HTN - As above Chronic systolic heart failure - Continue Aldactone - Continue Lasix Prolonged qtc - Hold all medications that prolongs qtc 2) GI: Abdominal pain, nausea, vomiting - Resolved 3) Nephrology: LIANNA - F/u renal ultrasound - F/u urine electrolytes 3) Endocrine: Hypothyroidism - Continue synthroid 4) Pulmonary: COPD - No active issues 5) F/E/N: - Hypokalemia: replete - Hypomagnesemia: resolved - Diabetic, sodium controlled diet 6) Prophylaxis: - OOB ambulating - Heparin 5,000u sq tid 7) Dispo: - Requires continued inpatient care CODE STATUS: FULL CODE Visit type - Emergency Visit Emergency Visit: Yes ED Registration Date: 01/05/17 Care time: The patient presented to the Emergency Department on the above date and was hospitalized for further evaluation of their emergent condition. - New Patient This patient is new to me today: No - Critical Care Critical Care patient: No
[2017-01-07 19:11] VITALS: TEMP 97.6
[2017-01-07] MEDS: ATORVASTATIN CA 20 MG TABLET (FP) PO SCH (21:49)
--- NOTE | 2017-01-07 23:24 | PN ---
Progress Note, Physician Chief Complaint: Pt wants to walk; no chest pain. History of Present Illness: 61 yo black woman with PMH of hypertension, hyperlipidemia, diabetes, CAD s/p [place] 2003 (CABG in 2003 with stent placement), severe systolic CHF s/p ICD, COPD current smoker, hypothyroidism, kidney stones, anxiety/depression, presents to the emergency department today for chest pain and shortness of breath. Patient states the shortness of breath started this morning and has worsened throughout the day. She reports that her legs have been swollen and she saw her nursery hand recently and he "cut something out on the front of my R leg." She states that she is having pain and swelling to her lower legs bilaterally. She also reports pain to her lower abdomen "ever since I got my gallbladder out." She denies any fever, chills, nausea, vomiting, diarrhea, cough, and then refused to answer any more questions. PCP is Dr. Ferrer/Marybeth, Hosiery Repairer is Dr. Cage. - Current Medication List Current Medications: Active Medications Atorvastatin Calcium (Lipitor -) 20 mg PO HS [facility] Last Admin: 01/07/17 21:49 Dose: 20 mg Clopidogrel Bisulfate (Plavix -) 75 mg PO DAILY [facility] Last Admin: 01/07/17 09:48 Dose: 75 mg Furosemide (Lasix -) 80 mg PO BIDLASIX [facility] Last Admin: 01/07/17 17:23 Dose: 80 mg Heparin Sodium (Porcine) (Heparin -) 5,000 unit SQ TID [facility] Last Admin: 01/07/17 21:49 Dose: 5,000 unit Sodium Chloride (Normal Saline -) 1,000 mls @ 10 mls/hr IV ASDIR [facility] Last Admin: 01/07/17 21:50 Dose: Not Given Levothyroxine Sodium (Synthroid -) 75 mcg PO AM [facility] Last Admin: 01/07/17 07:37 Dose: 75 mcg Magnesium Oxide (Mag-Ox -) 400 mg PO DAILY [facility] Last Admin: 01/07/17 09:48 Dose: 400 mg Metoprolol Succinate (Toprol Xl -) 100 mg PO DAILY [facility] Last Admin: 01/07/17 09:48 Dose: 100 mg Potassium Chloride (K-Dur -) 40 meq PO BID [facility] Last Admin: 01/07/17 21:49 Dose: 40 meq Spironolactone (Aldactone -) 50 mg PO DAILY [facility] Last Admin: 01/07/17 09:48 Dose: 50 mg - Objective Vital Signs: Vital Signs Temperature 97.6 F 01/07/17 18:00 Pulse Rate 64 01/07/17 18:00 Respiratory Rate 20 01/07/17 18:00 Blood Pressure 92/67 01/07/17 18:00 O2 Sat by Pulse Oximetry (%) 98 01/07/17 09:00 Constitutional: Yes: Anxious Eyes: Yes: WNL HENT: Yes: WNL Neck: Yes: WNL Cardiovascular: Yes: Regular Rate and Rhythm Respiratory: Yes: Regular Gastrointestinal: Yes: Soft ...Rectal Exam: Yes: Deferred Genitourinary: No: Anuria Breast(s): Yes: WNL Musculoskeletal: Yes: Muscle Weakness Extremities: Yes: Cool Edema: Yes Edema: LLE: 1+, RLE: 1+ Peripheral Pulses WNL: No Peripheral Pulses: Left Doralis Pedis: 1+, Right Dorsalis Pedis: 1+ Neurological: Yes: Alert, Oriented, Weakness Labs: CBC, BMP 01/06/17 08:45 01/07/17 05:15 Abnormal Lab Results 01/07/17 05:15 Sodium 133 L Potassium 3.3 L Chloride 92 L BUN 22 H Creatinine 1.7 H D Random Glucose 49 L* D Total Bilirubin 10.9 H AST 65 H Alkaline Phosphatase 165 H Total Protein 6.1 L Albumin 2.7 L Problem List - Problems (1) Chest pain of uncertain etiology Assessment/Plan: TNI 0.7-->0.6--0.34 Continue Clopidogrel.(reportedly allergic to ASA); f/u serial TNI. Continue beta blockers, Aldactone; add ACEI. Stress MIBI when stable. Code(s): R07.89 - OTHER CHEST PAIN (2) Abdominal pain Assessment/Plan: has been occurring since cholecystectomy. Code(s): R10.9 - UNSPECIFIED ABDOMINAL PAIN Qualifiers: Abdominal location: lower abdomen, unspecified Qualified Code(s): R10.30 - Lower abdominal pain, unspecified (3) Acute combined systolic and diastolic ACC/AHA stage C congestive heart failure Code(s): I50.41 - ACUTE COMBINED SYSTOLIC AND DIASTOLIC (CONGESTIVE) HRT FAIL (4) Elevated troponin Code(s): R74.8 - ABNORMAL LEVELS OF OTHER SERUM ENZYMES (5) Hyperbilirubinemia Code(s): E80.6 - OTHER DISORDERS OF BILIRUBIN METABOLISM (6) Hyperlipidemia Code(s): E78.5 - HYPERLIPIDEMIA, UNSPECIFIED (7) Hypertension Code(s): I10 - ESSENTIAL (PRIMARY) HYPERTENSION (8) Peripheral neuropathy Code(s): G62.9 - POLYNEUROPATHY, UNSPECIFIED Qualifiers: Peripheral neuropathy type: polyneuropathy, unspecified Qualified Code( s): G62.9 - Polyneuropathy, unspecified (9) Sphincter of Oddi dysfunction Code(s): K83.4 - SPASM OF SPHINCTER OF ODDI (10) Status post THR (total hip replacement) Code(s): Z96.649 - PRESENCE OF UNSPECIFIED ARTIFICIAL HIP JOINT (11) Hypokalemia Code(s): E87.6 - HYPOKALEMIA (12) Depression Code(s): F32.9 - MAJOR DEPRESSIVE DISORDER, SINGLE EPISODE, UNSPECIFIED (13) Diabetes Code(s): E11.9 - TYPE 2 DIABETES MELLITUS WITHOUT COMPLICATIONS Qualifiers: Diabetes mellitus type: type 2 Diabetes mellitus complication status: with unspecified complications Diabetes mellitus fci insulin use: with process pumper use Qualified Code(s): E11.8 - Type 2 diabetes mellitus with unspecified complications; Z79.4 - jewelry sales representative (current) use of insulin (14) Fatty liver Code(s): K76.0 - FATTY (CHANGE OF) LIVER, NOT ELSEWHERE CLASSIFIED (15) Hypothyroidism Code(s): E03.9 - HYPOTHYROIDISM, UNSPECIFIED (16) ICD (implantable cardioverter-defibrillator) in place Code(s): Z95.810 - PRESENCE OF AUTOMATIC (IMPLANTABLE) CARDIAC DEFIBRILLATOR (17) NSVT (nonsustained ventricular tachycardia) Code(s): I47.2 - VENTRICULAR TACHYCARDIA (18) Sleep apnea Code(s): G47.30 - SLEEP APNEA, UNSPECIFIED (19) Tobacco use disorder Code(s): Z72.0 - TOBACCO USE
[2017-01-08 06:41] VITALS: BP 93/55; PULSE 62
[2017-01-08] MEDS: HEPARIN NA (PORCINE) 5,000 UNITS/ML 1ML VIAL SQ SCH (06:43)
[2017-01-08] MEDS: LEVOTHYROXINE NA 75 MCG TABLET (FP) PO SCH (06:44)
[2017-01-08] MEDS: FUROSEMIDE 40 MG TABLET (FP) PO SCH (06:44)
[2017-01-08 06:49] LABS: BASOPHIL 0.3 % (0-2.0); MCH 27.4 pg (25.7-33.7); MCHC 32.5 g/dl (32.0-36.0); MEAN CELL VOLUME 84.4 fl (80-96); MEAN PLT VOLUME 9.9 fl (7.5-11.1); NEUTROPHILS 72.8 % (42.8-82.8); PLATELET COUNT 202 K/MM3 (134-434); RDW 20.5 % (11.6-15.6); WHITE BLOOD COUNT 6.8 K/mm3 (4.0-10.0)
[2017-01-08 07:27] LABS: ALBUMIN 2.7 g/dl (3.4-5.0); ANION GAP 16 (8-16); CALCIUM 8.9 mg/dL (8.5-10.1); CO2 25 mmol/L (21-32); GLUCOSE,RANDOM 74 mg/dL (74-106)
[2017-01-08 07:31] LABS: ALK PHOS 167 U/L (45-117); BILIRUBIN,TOTAL 11.1 mg/dL (0.2-1.0); CREATININE 2.3 mg/dL (0.55-1.02); SGPT/ALT 33 U/L (12-78); TOT PROT 6.2 g/dl (6.4-8.2)
[2017-01-08 08:09] LABS: MAGNESIUM 2.3 mg/dL (1.8-2.4); SGOT/AST 73 U/L (15-37)
--- NOTE | 2017-01-08 09:04 | PN ---
Physical Exam: SUBJECTIVE: Patient seen and examined. She denies chest pain or shortness of breath. Denies abdominal pain. Asking to leave today, upset she is still in the hospital. OBJECTIVE: Labs with worsening kidney function Sodium 131, BUN/creat: 32/2.3 Vital Signs Period Temp Pulse Resp BP Sys/Santoro Pulse Ox Last 24 Hr 97.6 F-97.6 F 60-64 16-20 89-99/55-70 96-100 GENERAL: The patient is awake, alert, and fully oriented, in no acute distress. HEAD: Normal with no signs of trauma. EYES: PERRL, extraocular movements intact, sclera anicteric, conjunctiva clear. No ptosis. ENT: Ears normal, nares patent, oropharynx clear without exudates, moist mucous membranes. NECK: Trachea midline, full range of motion, supple. LUNGS: Breath sounds equal, clear to auscultation bilaterally, no wheezes, no crackles, no accessory muscle use. HEART: Regular rate and rhythm, S1, S2 without murmur, rub or gallop. ABDOMEN: Soft, nontender, nondistended, normoactive bowel sounds, no guarding EXTREMITIES: 2+ pulses, warm, well-perfused, no edema. NEUROLOGICAL: Normal speech, gait not observed. PSYCH: Angry, demanding to go home SKIN: Warm, dry, normal turgor, no rashes or lesions noted Laboratory Results - last 24 hr 01/07/17 01/07/17 01/08/17 11:48 15:52 05:20 WBC 6.8 RBC 4.61 Hgb 12.6 Hct 38.9 MCV 84.4 MCH 27.4 MCHC 32.5 RDW 20.5 H Plt Count 202 MPV 9.9 Neutrophils % 72.8 Lymphocytes % 12.9 D Monocytes % 14.0 H Eosinophils % 0.0 Basophils % 0.3 Sodium Potassium Chloride Carbon Dioxide Anion Gap BUN Creatinine Creat Clearance w eGFR POC Glucometer 91.52561 92.97985 Random Glucose Calcium Magnesium Total Bilirubin AST ALT Alkaline Phosphatase Total Protein Albumin 01/08/17 05:20 WBC RBC Hgb Hct MCV MCH MCHC RDW Plt Count MPV Neutrophils % Lymphocytes % Monocytes % Eosinophils % Basophils % Sodium 131 L Potassium 4.6 D Chloride 90 L Carbon Dioxide 25 Anion Gap 16 BUN 32 H D Creatinine 2.3 H D Creat Clearance w eGFR 21.42 POC Glucometer Random Glucose 74 D Calcium 8.9 Magnesium 2.3 Total Bilirubin 11.1 H AST 73 H ALT 33 Alkaline Phosphatase 167 H Total Protein 6.2 L Albumin 2.7 L Active Medications Generic Name Dose Route Start Last Admin Trade Name Kamilah PRN Reason Stop Dose Admin Atorvastatin Calcium 20 mg 01/05/17 22:00 01/07/17 21:49 Lipitor - PO 20 mg HS [facility] Administration Clopidogrel Bisulfate 75 mg 01/05/17 10:00 01/07/17 09:48 Plavix - PO 75 mg DAILY [facility] Administration Furosemide 80 mg 01/05/17 06:00 01/08/17 06:44 Lasix - PO 80 mg BIDLASIX [facility] Administration Heparin Sodium (Porcine) 5,000 unit 01/06/17 22:00 01/08/17 06:43 Heparin - SQ 5,000 unit TID [facility] Administration Sodium Chloride 1,000 mls @ 10 mls/hr 01/06/17 18:30 01/07/17 21:50 Normal Saline - IV Not Given ASDIR [facility] Levothyroxine Sodium 75 mcg 01/05/17 07:00 01/08/17 06:44 Synthroid - PO 75 mcg AM [facility] Administration Magnesium Oxide 400 mg 01/05/17 10:00 01/07/17 09:48 Mag-Ox - PO 400 mg DAILY [facility] Administration Metoprolol Succinate 100 mg 01/05/17 10:00 01/07/17 09:48 Toprol Xl - PO 100 mg DAILY [facility] Administration Potassium Chloride 40 meq 01/05/17 10:00 01/07/17 21:49 K-Dur - PO 40 meq BID [facility] Administration Spironolactone 50 mg 01/05/17 10:00 01/07/17 09:48 Aldactone - PO 50 mg DAILY [facility] Administration ASSESSMENT/PLAN:
[2017-01-08] MEDS ORDERED: PT OWN MED DRAWER 7, Y5N ONE (09:27)
[2017-01-08] MEDS: SPIRONOLACTONE 25 MG TABLET (FP) PO SCH (09:52)
[2017-01-08] MEDS: MAGNESIUM OXIDE 400 MG TABLET (FP) PO SCH (09:53)
[2017-01-08] MEDS: POTASSIUM CHLORIDE TABS 20 MEQ TABLET.ER (FP) PO SCH (09:53)
[2017-01-08] MEDS: CLOPIDOGREL BISULFATE 75 MG TABLET (FP) PO SCH (09:53)
[2017-01-08] MEDS: METOPROLOL SUCCINATE 100 MG TAB.SR.24H (FP) PO SCH (09:53)
--- NOTE | 2017-01-08 10:27 | DS ---
Physical Exam: SUBJECTIVE: Patient seen and examined. She is angry and demanding to leave AMA. I spoke to her in detail and asked for her to reconsider. She clenches her teeth and states "I want to get out of here" OBJECTIVE: Patient still needs to be closely monitored in the ICU but she is demanding to leave AMA and when I ask her to reconsider she becomes angry and begins to curse. I reviewed the POC with her: refinery process engineer needs to see her, for possible cardiac cath as per troponins were elevated. Reviewed that she has LIANNA and that I wanted her to see Dr. Lowry or renal. She continues to refuse. Risks of sudden , shortness of breath, syncope, CHF, worsening kidney function discussed. She is still insisting on leaving and refusing for me to call anyone in her family to speak to. She has displayed the capacity to make her own decisions and despite my repeated pleading for her to stay, she continues to refuse. Vital Signs Period Temp Pulse Resp BP Sys/Santoro Pulse Ox Last 24 Hr 97.6 F-97.6 F 60-64 16-20 89-99/55-70 96-100 PHYSICAL EXAM GENERAL: The patient is awake, alert, and fully oriented, in no acute distress. HEAD: Normal with no signs of trauma. EYES: PERRL, extraocular movements intact, sclera anicteric, conjunctiva clear. ENT: Ears normal, nares patent, oropharynx clear without exudates, moist mucous membranes. NECK: Trachea midline, full range of motion, supple. LUNGS: Diminished/clear to auscultation. no accessory muscle use. ABDOMEN: Soft, nontender, nondistended, normoactive bowel sounds, no guarding, no rebound, no hepatosplenomegaly, no masses. EXTREMITIES: 2+ pulses, warm, well-perfused, no edema. NEUROLOGICAL: Cranial nerves II through XII grossly intact. Normal speech, gait not observed. PSYCH: Normal mood, normal affect. SKIN: Warm, dry, normal turgor, no rashes or lesions noted. LABS Laboratory Results - last 24 hr 01/07/17 01/07/17 01/08/17 11:48 15:52 05:20 WBC 6.8 RBC 4.61 Hgb 12.6 Hct 38.9 MCV 84.4 MCH 27.4 MCHC 32.5 RDW 20.5 H Plt Count 202 MPV 9.9 Neutrophils % 72.8 Lymphocytes % 12.9 D Monocytes % 14.0 H Eosinophils % 0.0 Basophils % 0.3 Sodium Potassium Chloride Carbon Dioxide Anion Gap BUN Creatinine Creat Clearance w eGFR POC Glucometer [phone] 92.87340 Random Glucose Calcium Magnesium Total Bilirubin AST ALT Alkaline Phosphatase Total Protein Albumin 01/08/17 05:20 WBC RBC Hgb Hct MCV MCH MCHC RDW Plt Count MPV Neutrophils % Lymphocytes % Monocytes % Eosinophils % Basophils % Sodium 131 L Potassium 4.6 D Chloride 90 L Carbon Dioxide 25 Anion Gap 16 BUN 32 H D Creatinine 2.3 H D Creat Clearance w eGFR 21.42 POC Glucometer Random Glucose 74 D Calcium 8.9 Magnesium 2.3 Total Bilirubin 11.1 H AST 73 H ALT 33 Alkaline Phosphatase 167 H Total Protein 6.2 L Albumin 2.7 L HOSPITAL COURSE: Date of Admission:01/05/17 Date of Discharge: 01/08/17 The patient requested to sign out AMA, the patient displayed the capacity to make her own decisions. Discussed with the patient repeatedly that the plan is to monitor her cardiac status. She is also possibly a transfer to cardiac cath this week. Also explained that I wanted to consult a kidney specialist to see her in the hospital as she her kidneys are currently compromised (LIANNA). RN called refinery process engineer covering and asked that they call me so that I can make them aware. Dr. Cage, patient's own refinery process engineer is away this week. I attempted to call Dr. Cage via his cell phone and message has been left. The risks of leaving the ICU with elevated troponins, electrolyte imbalance and acute kidney injury have been discussed twice with patient. All questions answered fully. The patient verbalizes understanding the risks and is agreeing to leave against medical advice despite my numerous attempts to talk her out of it. Minutes to complete discharge: 60 Discharge Summary Reason For Visit: CHF ELEVATED TROPONIN ABD PAIN Current Active Problems Chest pain of uncertain etiology (Acute) Abdominal pain (Chronic) Acute combined systolic and diastolic ACC/AHA stage C congestive heart failure ( Chronic) CHF (congestive heart failure) (Chronic) Chest pain (Chronic) Dyspepsia (Chronic) Elevated troponin (Chronic) Hyperbilirubinemia (Chronic) Hyperlipidemia (Chronic) Hypertension (Chronic) Noncompliance with medication regimen (Chronic) Peripheral neuropathy (Chronic) Restless leg syndrome (Chronic) Sphincter of Oddi dysfunction (Chronic) Status post THR (total hip replacement) (Chronic) Transaminitis (Chronic) - Instructions Referrals: Parrish Ferrer MD [Primary Care Provider] - - Home Medications Comprehensive Discharge Medication List: Ambulatory Orders Calamine 8% Topical Lotion - 1 applic TP BID PRN #0 bottle 08/04/16 Clopidogrel Bisulfate [Plavix -] 75 mg PO DAILY #30 tablet 08/04/16 Levothyroxine [Synthroid -] 75 mcg PO DAILY #30 tab 08/04/16 Mineral Oil/Petrolat,Wht/Water [Eucerin (Large Jar) -] 1 applic TP DAILY PRN #0 jar 08/04/16 Spironolactone 50 mg PO DAILY #30 tablet 08/04/16 Furosemide [Lasix -] 80 mg PO BID #60 tablet 08/27/16 Potassium Chloride 20 meq PO DAILY #30 tab 08/27/16 Atorvastatin Ca [Lipitor] 20 mg PO HS 09/08/16 Diphenhydramine HCl [Benadryl Capsule -] 25 mg PO Q6H PRN #0 tab 11/23/16 Magnesium Oxide [Mag-Ox -] 400 mg PO DAILY #30 tablet 11/23/16 Metoprolol Succinate [Toprol Xl] 100 mg PO DAILY #30 tab.er.24h 11/23/16 This patient is new to me today: Yes Date on this admission: 01/08/17 Emergency Visit: Yes ED Registration Date: 01/05/17 Care time: The patient presented to the Emergency Department on the above date and was hospitalized for further evaluation of their emergent condition. Critical Care patient: Yes Total Critical Care Time (in minutes): 60 Critical Care Statement: The care of this patient involved high complexity decision making to prevent further life threatening deterioration of the patient 's condition and/or to evaluate & treat vital organ system(s) failure or risk of failure. - Discharge Referral Referred to [facility] No
== END 2017-01-08 11:09 | disposition left against medical advice (07) | DRG 303 ==
LOC: JER 19:33 → JERBED 01-05 00:52 → UNDOADMIN 01-05 01:19 → JERBED 01-05 01:19 → J2W 01-05 13:12
PROVIDERS: ADMIT Internal Medicine; ATTEND Nurse Practitioner Family
DX: I25.10 Atherosclerotic heart disease of native coronary artery without angina pectoris (principal); I50.22 Chronic systolic (congestive) heart failure; N17.9 Acute kidney failure, unspecified; R07.89 Other chest pain; E78.5 Hyperlipidemia, unspecified; I25.2 Old myocardial infarction; J44.9 Chronic obstructive pulmonary disease, unspecified; E03.9 Hypothyroidism, unspecified; N20.0 Calculus of kidney; I27.2 Other secondary pulmonary hypertension; E80.6 Other disorders of bilirubin metabolism; E11.42 Type 2 diabetes mellitus with diabetic polyneuropathy; K57.90 Diverticulosis of intestine, part unspecified, without perforation or abscess without bleeding; K74.69 Other cirrhosis of liver; E87.6 Hypokalemia; M54.5 Low back pain; M19.90 Unspecified osteoarthritis, unspecified site; R10.30 Lower abdominal pain, unspecified; R74.8 Abnormal levels of other serum enzymes; F41.8 Other specified anxiety disorders; K83.4 Spasm of sphincter of Oddi; I11.0 Hypertensive heart disease with heart failure; G47.30 Sleep apnea, unspecified; K76.0 Fatty (change of) liver, not elsewhere classified; R11.2 Nausea with vomiting, unspecified; E83.42 Hypomagnesemia; Z79.4 Long term (current) use of insulin; Z86.718 Personal history of other venous thrombosis and embolism; Z95.810 Presence of automatic (implantable) cardiac defibrillator; Z96.641 Presence of right artificial hip joint; Z95.1 Presence of aortocoronary bypass graft; Z95.5 Presence of coronary angioplasty implant and graft
CPT/HCPCS: 36415; 71010-TC; 76705-TC; 80048; 80053; 82553; 83690; 83735; 83880; 84100; 84484; 85025; 93005; 93010; 93970-TC; 99283-25; J1644

== ENCOUNTER 2017-07-27 08:30 | Inpatient (IN) | payer OTHER, BC ==
[2017-07-27 08:40] VITALS: BMI 33.6
[2017-07-27 08:59] LABS: BASO % 0.4 % (0-2.0); HEMATOCRIT 36.5 % (32.4-45.2); HEMOGLOBIN 11.9 GM/dL (10.7-15.3); LYMPH % 16.4 % (8-40); MCH 28.1 pg (25.7-33.7); MCHC 32.5 g/dl (32.0-36.0); MEAN CELL VOLUME 86.5 fl (80-96); MEAN PLT VOLUME 7.6 fl (7.5-11.1); MONO % 15.7 % (3.8-10.2); NEUT % 67.5 % (42.8-82.8); PLATELET COUNT 177 K/MM3 (134-434); RBC 4.22 M/mm3 (3.60-5.2); RDW 16.9 % (11.6-15.6); WHITE BLOOD COUNT 5.6 K/mm3 (4.0-10.0)
[2017-07-27 09:18] LABS: INR 1.72 (0.82-1.09); PROTHROMBIN TIME (PATIENT) 19.4 SEC (9.98-11.88)
[2017-07-27 09:21] LABS: ACTIVATED PTT 39.6 SECONDS (26.9-34.4)
--- NOTE | 2017-07-27 09:29 | PDOC ---
History of Present Illness - General History Source: Patient Exam Limitations: No Limitations - History of Present Illness Initial Comments: CHIEF COMPLAINT: 62 y/o afebrile female with PMH HTN, HLD, DM, CAD status post SC 2003, CABG in 2003 with stents, systolic CHF s/p ICD pacemaker, COPD current smoker, hypothyroid BIB EMS for SOB and fall last night. HISTORY OF PRESENT ILLNESS: The patient's grandson is with her and states she called him last night and told him that she fell on the floor and hit her head. Grandson is not sure if she lost consciousness. She is complaining of worsening SOB. Her grandson states she's been short of breath for 2 weeks. She states she threw up once last night. Last BM was this morning and was normal. She denies f/c, MOREAU, back pain, hematuria, dysuria. Vital signs on arrival are notable for O2 sat of 95% on RA. REVIEW OF SYSTEMS: GENERAL/CONSTITUTIONAL: No fever/chills. No weakness. No weight change. HEAD, EYES, EARS, NOSE AND THROAT: No change in vision. No ear pain or discharge. No sore throat. CARDIOVASCULAR: +SOB. No chest pain. RESPIRATORY: +cough and wheezing. No hemoptysis. GASTROINTESTINAL: +abd pain and 1 episode of vomiting. No diarrhea or constipation. GENITOURINARY: No dysuria, frequency, or change in urination. MUSCULOSKELETAL: +swelling to legs. No neck or back pain. SKIN: No rash or easy bruising. NEUROLOGIC: No headache, vertigo, loss of consciousness, or loss of sensation. PHYSICAL EXAM: GENERAL: The patient is awake, alert, and fully oriented, in moderate respiratory distress, speaking only 2-3 words per breath. HEAD: Normal with no signs of trauma. ENT: Pupils equal, round and reactive to light, extraocular movements intact, sclera anicteric, conjunctiva clear. Neck supple. LUNGS: Diffuse wheezing throughout all lung ramirez. Use of accessory muscles. CV: RRR, S1/S2, no MRG. Cap refill < 2 sec. ABDOMEN: Soft, distended, diffuse tenderness to palpation. EXTREMITIES: 2+ pitting edema b/l LEs. Normal range of motion. NEUROLOGICAL: Normal speech, normal gait. CN II-XII grossly intact. PSYCH: Normal mood, normal affect. SKIN: Warm, dry, normal turgor, no rashes or lesions noted. <Izabel Patel - Last Filed: 07/27/17 12:13> <Delia Ramirez - Last Filed: 07/29/17 10:45> - General Chief Complaint: Shortness of Breath Stated Complaint: FALL Time Seen by Provider: 07/27/17 08:47 Past History - Past Medical History Anemia: No Asthma: Yes Cancer: No Cardiac Disorders: Yes (Stents, PM/Defib, STEMI, SYSTOLIC CHF,PULM HTN) CVA: No COPD: No CHF: Yes Dementia: No Diabetes: Yes GI Disorders: Yes Disorders: No HTN: Yes Hypercholesterolemia: Yes Kidney Stones: Yes Liver Disease: Yes Psychiatric Problems: Yes (depression.) Seizures: No Thyroid Disease: Yes (Hypo) - Surgical History Abdominal Surgery: Yes (hx of peg tube.) Appendectomy: No Cardiac Surgery: Yes (bypass,stent x2, CABG 2003, ICD/Pacer 7/15) Cholecystectomy: Yes (04/2016) Lung Surgery: (cabg 2003) Neurologic Surgery: No Orthopedic Surgery: Yes (Right THR) - Immunization History Immunization Up to Date: Yes - Suicide/Smoking/Psychosocial Hx Smoking Status: No Smoking History: Current every day smoker Have you smoked in the past 12 months: Yes Number of Cigarettes Smoked Daily: 4 Information on smoking cessation initiated: Yes 'Breaking Loose' booklet given: 07/27/17 Hx Alcohol Use: No Drug/Substance Use Hx: No Substance Use Type: None Hx Substance Use Treatment: No <Izabel Patel - Last Filed: 07/27/17 12:13> <Delia Ramirez - Last Filed: 07/29/17 10:45> - Past Medical History Allergies/Adverse Reactions: Allergies Allergy/AdvReac Type Severity Reaction Status Date / Time aspirin Allergy Mild Rash Verified 07/27/17 08:35 banana Allergy Hives Verified 07/27/17 08:35 tomato Allergy Verified 07/27/17 08:35 Home Medications: Ambulatory Orders Unobtainable [Unobtainable] 07/27/17 *Physical Exam - Vital Signs Last Vital Signs Temp Pulse Resp BP Pulse Ox 97.8 F 80 22 136/86 95 07/27/17 08:35 07/27/17 08:35 07/27/17 08:35 07/27/17 08:35 07/27/17 08:59 <BarbaraIzabel manning - Last Filed: 07/27/17 12:13> - Vital Signs Last Vital Signs Temp Pulse Resp BP Pulse Ox 98.4 F 76 20 118/77 99 07/29/17 09:38 07/29/17 09:38 07/29/17 09:38 07/29/17 09:38 07/28/17 21:00 <Delia Ramirez - Last Filed: 07/29/17 10:45> Heart Score/ECG Review - ECG Intrepretation Comment:: Twelve-lead EKG was performed and reviewed by Dr. Ramirez. There is sinus rhythm with occasional premature ventricular complexes and premature atrial complexes. right axis deviation. Nonspecific intraventricular block. Cannot rule out anterior infarct, age undetermined. Impression: Abnormal twelve-lead EKG <Jose Luis Patelee - Last Filed: 07/27/17 12:13> ED Treatment Course - LABORATORY CBC & Chemistry Diagram: 07/27/17 08:50 07/27/17 08:50 - ADDITIONAL ORDERS Additional order review: 07/27/17 08:50 RBC 4.22 MCV 86.5 MCHC 32.5 RDW 16.9 H D MPV 7.6 D Neutrophils % 67.5 Lymphocytes % 16.4 D Monocytes % 15.7 H Eosinophils % 0.0 Basophils % 0.4 <JorgeIzabel - Last Filed: 07/27/17 12:13> - LABORATORY CBC & Chemistry Diagram: 07/29/17 09:40 07/29/17 09:40 - ADDITIONAL ORDERS Additional order review: 07/27/17 08:50 RBC 4.22 MCV 86.5 MCHC 32.5 RDW 16.9 H D MPV 7.6 D Neutrophils % 67.5 Lymphocytes % 16.4 D Monocytes % 15.7 H Eosinophils % 0.0 Basophils % 0.4 - RADIOLOGY Radiology Studies Ordered: Category Date Time Status CHEST X-RAY PORTABLE* [RAD] Stat Radiology 07/27/17 08:41 Completed - Medications Given in the ED: ED Medications Discontinued Medications Generic Name Dose Route Start Last Admin Trade Name Freq PRN Reason Stop Dose Admin Furosemide 40 mg 07/27/17 09:46 07/27/17 09:53 Lasix Injection - IVPUSH 07/27/17 09:47 40 mg ONCE ONE Administration Furosemide 20 mg 07/27/17 15:02 07/27/17 17:13 Lasix Injection - IVPUSH 07/27/17 15:03 20 mg ONCE ONE Administration Potassium Chloride 40 meq 07/27/17 09:49 07/27/17 09:53 K-Dur - PO 07/27/17 09:50 40 meq ONCE ONE Administration Potassium Chloride 40 meq 07/28/17 13:00 07/28/17 12:51 K-Dur - PO 07/28/17 13:01 40 meq ONCE ONE Administration <Delia Ramirez - Last Filed: 07/29/17 10:45> Medical Decision Making - Medical Decision Making A/P: 62 y/o female here with SOB and fall with head trauma yesterday. Plan is as follows: 1. EKG 2. Labs 3. CXR 4. Head CT 5. Abd/pelvis CT 6. O2 via nasal canula CXR IMPRESSION: CHF Ordered IV lasix. Potassium at 3.1. Glucose at 58 Ordered 2 juice boxes to drink and 40mg PO Kdur. Elevated troponin of 0.07 - actually lowest troponin value for the patient from all previous visits. Ct abd/pelvis IMPRESSION: Anasaraca and possible enteritis. Head Ct IMPRESSION: No significant interval change or acute pathology. Patient and daughter at bedside given results and plan for admission. Hospitalist microblogged at 11:59am. Dr. Cardenas called; waiting for call back. ORNAMENTAL BRONZE WORKER Elza accepts patient for Dr. Hines. <Izabel Patel - Last Filed: 07/27/17 12:13> *DC/Admit/Observation/Transfer - Discharge Dispostion Admit: Yes <Izabel Patel - Last Filed: 07/27/17 12:13> - Attestations Physician Attestion: I reviewed the case with the mid-level practitioner and agree with the mid- level practitioner's assessment, diagnosis and disposition. <Delia Ramirez - Last Filed: 07/29/17 10:45> Diagnosis at time of Disposition: Anasarca, Shortness of breath, Hypokalemia CHF exacerbation Qualifiers: Heart failure type: unspecified Qualified Code(s): I50.9 - Heart failure, unspecified - Discharge Dispostion Condition at time of disposition: Fair
[2017-07-27 09:36] LABS: ALBUMIN 3.4 g/dl (3.4-5.0); ANION GAP 10 (8-16); BLOOD UREA NITROGEN 19 mg/dL (7-18); CALCIUM 8.6 mg/dL (8.5-10.1); CHLORIDE 104 mmol/L (98-107); CO2 26 mmol/L (21-32); GLUCOSE,RANDOM 58 mg/dL (74-106); POTASSIUM 3.1 mmol/L (3.5-5.1); SGOT/AST 37 U/L (15-37); SGPT/ALT 17 U/L (12-78); SODIUM 140 mmol/L (136-145); TOT PROT 7.7 g/dl (6.4-8.2)
[2017-07-27 09:38] LABS: ALK PHOS 156 U/L (45-117); N-TERMINAL BNP 3267.96 pg/ml (5-125)
[2017-07-27] MEDS ORDERED: FUROSEMIDE 40 MG/4 ML INJECTABLE VIAL IVPUSH ONE ×2 (09:46→15:02)
[2017-07-27] MEDS ORDERED: POTASSIUM CHLORIDE TABS 20 MEQ TABLET.ER (FP) PO ONE ×2 (09:49→09:50)
[2017-07-27] MEDS ORDERED: FUROSEMIDE 40 MG/4 ML INJECTABLE VIAL ONE (09:50)
--- NOTE | 2017-07-27 13:43 | HP ---
Admitting History and Physical - Admission Chief Complaint: sob History of Present Illness: This is a 62 year old female with hyperbilirubinemia, HTN, HLD, DM, CAD s/p PA 2003, CABG in 2003 s/p stents2, Systolic CHF s/p ICD/Pacemaker, COPD, current smoker, hypothyroid & peripheral neuropathy, chronic abdominal pain (thought to be due to liver cirrhosis/biliary tree strictures s/p lap naomi for acalcalous cholecystitis 05/05) presented to the ED with sob and s/p fall last night. Per she says shes been sob for 2 weeks but last night after she fell and hit the back of her head the breathing worsened. She also complains of abd and leg pain but its chronic She sounds congested and has rhinorrhea. History Source: Patient, Medical Record Limitations to Obtaining History: No Limitations - Past Medical History MASTER BLACK BELT: Yes: Peripheral Neuropathy Cardiovascular: Yes: CAD (CABG 2003, stents x2, now with defibrillator), CHF, Deep Vein Thrombosis, HTN, Hyperlipdemia, PA (PA in 2003), Mitral Insufficiency , Murmur, Pulmonary Hypertension, Other (profound biventricular failure, AICD device, CABG 2003, subsequent stents; cigarettes) Pulmonary: Yes: Asthma, COPD Gastrointestinal: Yes: Diverticulosis, Other (Chronic abdominal pain and food intolerances. Had PEG placed 11/03 after suffering vocal cord damage ( EMS intubation). PEG was subsequently removed. ) Hepatobiliary: Yes: Cirrhosis (cardiac cirrhosis), Cholecystitis (s/p lap choly 05/05) Renal/: Yes: Renal Calculi Psych: Yes: Depression Musculoskeletal: Yes: Chronic low back pain, Osteoarthritis Endocrine: Yes: Hypothyroidism - Past Surgical History Past Surgical History: Yes: AICD, CABG, Cholecystectomy, Colonoscopy, Joint Replacement (right THR), Stent (X2) - Smoking History Smoking history: Current every day smoker Have you smoked in the past 12 months: Yes Aproximately how many cigarettes per day: 4 - Alcohol/Substance Use Hx Alcohol Use: No History of Substance Use: reports: None - Social History ADL: Independent 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 History of Recent Travel: No Home Medications - Allergies Allergies/Adverse Reactions: Allergies Allergy/AdvReac Type Severity Reaction Status Date / Time aspirin Allergy Mild Rash Verified 07/27/17 08:35 banana Allergy Hives Verified 07/27/17 08:35 tomato Allergy Verified 07/27/17 08:35 - Home Medications Home Medications: Ambulatory Orders Unobtainable [Unobtainable] 07/27/17 Family Disease History - Family Disease History Family Disease History: Diabetes: Sister (s/p CABG in her 50s), Heart Disease: Father (had unknown cancer), Mother (lived to 94), Sister, CA: Father Review of Systems - Review of Systems Constitutional: reports: Weakness Eyes: reports: No Symptoms HENT: reports: No Symptoms Neck: reports: No Symptoms Cardiovascular: reports: Shortness of Breath Respiratory: reports: SOB Gastrointestinal: reports: Abdominal Pain Genitourinary: reports: No Symptoms Musculoskeletal: reports: No Symptoms Integumentary: reports: No Symptoms Neurological: reports: No Symptoms Endocrine: reports: No Symptoms Hematology/Lymphatic: reports: No Symptoms Psychiatric: reports: No Symptoms Physical Examination Vital Signs: Vital Signs Temperature 98.4 F 07/27/17 12:25 Pulse Rate 82 07/27/17 12:25 Respiratory Rate 16 07/27/17 12:25 Blood Pressure 119/79 07/27/17 12:25 O2 Sat by Pulse Oximetry (%) 97 07/27/17 12:25 Constitutional: Yes: Well Nourished Eyes: Yes: Conjunctiva Clear HENT: Yes: Rhinnorhea Neck: Yes: Supple Cardiovascular: Yes: Regular Rate and Rhythm, S1, S2 Respiratory: Yes: Cough, Diminished, On Nasal O2, Rhonchi Gastrointestinal: Yes: Normal Bowel Sounds, Soft Renal/: Yes: WNL Musculoskeletal: Yes: WNL Edema: Yes Edema: LLE: 2+, RLE: 2+ Neurological: Yes: Alert, Oriented, Cran Nerves II-XII Intact Psychiatric: Yes: Alert, Oriented Labs: CBC, BMP 07/27/17 08:50 07/27/17 08:50 Imaging - Results Chest X-ray: Report Reviewed (congestive changes) Problem List - Problems (1) Anasarca Code(s): R60.1 - GENERALIZED EDEMA (2) CHF exacerbation Code(s): I50.9 - HEART FAILURE, UNSPECIFIED Qualifiers: Heart failure type: unspecified Qualified Code(s): I50.9 - Heart failure, unspecified (3) Shortness of breath Code(s): R06.02 - SHORTNESS OF BREATH (4) Abdominal pain Code(s): R10.9 - UNSPECIFIED ABDOMINAL PAIN Qualifiers: Abdominal location: lower abdomen, unspecified Qualified Code(s): R10.30 - Lower abdominal pain, unspecified (5) Acute combined systolic and diastolic ACC/AHA stage C congestive heart failure Code(s): I50.41 - ACUTE COMBINED SYSTOLIC AND DIASTOLIC (CONGESTIVE) HRT FAIL (6) CHF (congestive heart failure) Code(s): I50.9 - HEART FAILURE, UNSPECIFIED (7) Coronary artery disease Code(s): I25.10 - ATHSCL HEART DISEASE OF [place] CORONARY ARTERY W/O ANG PCTRS (8) Elevated troponin Code(s): R74.8 - ABNORMAL LEVELS OF OTHER SERUM ENZYMES (9) Hyperbilirubinemia Code(s): E80.6 - OTHER DISORDERS OF BILIRUBIN METABOLISM (10) Hyperlipidemia Code(s): E78.5 - HYPERLIPIDEMIA, UNSPECIFIED (11) Hypertension Code(s): I10 - ESSENTIAL (PRIMARY) HYPERTENSION (12) Hypothyroidism Code(s): E03.9 - HYPOTHYROIDISM, UNSPECIFIED (13) ICD (implantable cardioverter-defibrillator) in place Code(s): Z95.810 - PRESENCE OF AUTOMATIC (IMPLANTABLE) CARDIAC DEFIBRILLATOR (14) Lower extremity edema Code(s): R60.0 - LOCALIZED EDEMA (15) Peripheral neuropathy Code(s): G62.9 - POLYNEUROPATHY, UNSPECIFIED Qualifiers: Peripheral neuropathy type: polyneuropathy, unspecified Qualified Code(s): G62.9 - Polyneuropathy, unspecified Assessment/Plan Assessment: 62 year old female hyperbilirubinemia, HTN, HLD, DM, CAD s/p PA 2003 , CABG in 2003 s/p stents2, Systolic CHF s/p ICD/Pacemaker, COPD, current smoker, hypothyroid & peripheral neuropathy, chronic abdominal pain (thought to be due to liver cirrhosis/biliary tree strictures s/p lap naomi for acalcalous cholecystitis 05/05) admitted with sob and s/p fall last night. Plan: 1. Acute on chronic systolic HF - Lasix 60mg IV given in ED - Continue Lasix 40mg IV BID, monitor response, K+ - Daily weights - ECHO shows severely dilated LV, LV hypertrophy, LVSF severely reduced, ICD, mod MR, mod-severe TR - Toprol xl 10mg - Aldactone 50mg daily - Cardiology seeing 2. CAD s/p stents/CABG - Plavix 75mg daily 3. Hypothyroid - Synthroid 75mcg - Check TSH 4. SOB, COPD - Likely due to above - Albuterol nebs - Pulmonary consulted 5. PPX DVT: Lovenox PT daily 6. DM II - ISS, BGM ACHS 7. HTN - Stable - Meds above Visit type - Emergency Visit Emergency Visit: Yes ED Registration Date: 07/27/17 Care time: The patient presented to the Emergency Department on the above date and was hospitalized for further evaluation of their emergent condition. - New Patient This patient is new to me today: Yes Date on this admission: 07/27/17 - Critical Care Critical Care patient: No Hospitalist Screening - Colonoscopy Questionnaire Colonoscopy Questionnaire: Colonoscopy Questionnaire - Patient: 50 - 75 years old and never had a screening colonoscopy: No History of colon or rectal polyps, or CA: No History of IBD, Crohn's disease or UC: Unknown History of abdominal radiation therapy as a child: Unknown - Relative: 1 with colon or rectal CA, or polyps at age 60 or younger: Unknown Colon or rectal CA diagnosed at age 45 or younger: Unknown Multiple relatives with colon or rectal CA: Unknown - Outcome: Screening Result: Negative Screen
--- NOTE | 2017-07-27 13:56 | CON.CARD ---
Consult - History of Present Illness History of Present Illness: his is a 62 year old female with hyperbilirubinemia, HTN, HLD, DM, CAD s/p IA 2003, CABG in 2003 s/p stents2, Systolic CHF s/p ICD/Pacemaker, COPD, current smoker, hypothyroid & peripheral neuropathy, chronic abdominal pain (thought to be due to liver cirrhosis/biliary tree strictures s/p lap naomi for acalcalous cholecystitis 05/05) presented to the ED with sob and s/p fall last night. The patient's grandson is with her and states she called him last night and told him that she fell on the floor and hit her head. Grandson is not sure if she lost consciousness. She is complaining of worsening SOB. Her grandson states she's been short of breath for 2 weeks. She states she threw up once last night. Last BM was this morning and was normal. She denies f/c, MOREAU, back pain, hematuria, dysuria. 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 Had PEG placed 11/03 after suffering vocal cord damage ( EMS intubation). PEG was subsequently removed. ) Hepatobiliary: Yes: Cirrhosis (cardiac cirrhosis), Cholecystitis (s/p lap choly 05/05) Renal/: Yes: Renal Calculi Psych: Yes: Depression Musculoskeletal: Yes: Chronic low back pain, Osteoarthritis Endocrine: Yes: Hypothyroidism - Past Surgical History Past Surgical History: Yes: AICD, CABG, Cholecystectomy, Colonoscopy, Joint Replacement (right THR), Stent (X2) - Alcohol/Substance Use Hx Alcohol Use: No History of Substance Use: reports: None - Smoking History Smoking history: Current every day smoker Have you smoked in the past 12 months: Yes Aproximately how many cigarettes per day: 4 - Social History Usual Living Arrangement: Alone ADL: Independent 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 History of Recent Travel: No Home Medications - Allergies Allergies/Adverse Reactions: Allergies Allergy/AdvReac Type Severity Reaction Status Date / Time aspirin Allergy Mild Rash Verified 07/27/17 08:35 banana Allergy Hives Verified 07/27/17 08:35 tomato Allergy Verified 07/27/17 08:35 - Home Medications Home Medications: Ambulatory Orders Unobtainable [Unobtainable] 07/27/17 Family Disease History - Family Disease History Family Disease History: Diabetes: Sister (s/p CABG in her 50s), Heart Disease: Father (had unknown cancer), Mother (lived to ), Sister, [place]: Father Review of Systems - Review of Systems Constitutional: reports: No Symptoms Eyes: reports: No Symptoms HENT: reports: No Symptoms Neck: reports: No Symptoms Cardiovascular: reports: Shortness of Breath Gastrointestinal: reports: No Symptoms Genitourinary: reports: No Symptoms Breasts: reports: No Symptoms Reported Musculoskeletal: reports: No Symptoms Integumentary: reports: No Symptoms Neurological: reports: No Symptoms Endocrine: reports: No Symptoms Hematology/Lymphatic: reports: No Symptoms Psychiatric: reports: No Symptoms Vital Signs: Vital Signs Temperature 98.4 F 07/27/17 12:25 Pulse Rate 82 07/27/17 12:25 Respiratory Rate 16 07/27/17 12:25 Blood Pressure 119/79 07/27/17 12:25 O2 Sat by Pulse Oximetry (%) 97 07/27/17 12:25 Constitutional: Yes: Well Nourished, No Distress, Calm Eyes: Yes: WNL, Conjunctiva Clear, EOM Intact HENT: Yes: WNL, Atraumatic, Normocephalic Neck: Yes: WNL, Supple, Trachea Midline Respiratory: Yes: Rales Gastrointestinal: Yes: WNL, Normal Bowel Sounds Renal/: Yes: WNL Cardiovascular: Yes: WNL, Regular Rate and Rhythm Musculoskeletal: Yes: WNL Extremities: Yes: WNL Edema: Yes Integumentary: Yes: WNL Neurological: Yes: WNL, Alert, Oriented ...Motor Strength: WNL Psychiatric: Yes: WNL, Alert, Oriented - Other Data Labs, Other Data: CBC, BMP 07/27/17 08:50 07/27/17 08:50 INR, PTT INR 1.72 (0.82-1.09) H 07/27/17 08:50 Troponin, BNP 07/27/17 08:50 Troponin I 0.07 H B-Natriuretic Peptide 3267.96 H Troponin, BNP 07/27/17 08:50 Troponin I 0.07 H B-Natriuretic Peptide 3267.96 H Imaging - Results Chest X-ray: Image Reviewed (cm chf) EKG: Image Reviewed (v paced) Problem List - Problems (1) Anasarca Code(s): R60.1 - GENERALIZED EDEMA (2) CHF exacerbation Code(s): I50.9 - HEART FAILURE, UNSPECIFIED Qualifiers: Heart failure type: unspecified Qualified Code(s): I50.9 - Heart failure, unspecified (3) Hypokalemia Code(s): E87.6 - HYPOKALEMIA (4) Shortness of breath Code(s): R06.02 - SHORTNESS OF BREATH (5) LIANNA (acute kidney injury) Code(s): N17.9 - ACUTE KIDNEY FAILURE, UNSPECIFIED (6) Bacteremia Code(s): R78.81 - BACTEREMIA (7) Chest pain of uncertain etiology Code(s): R07.89 - OTHER CHEST PAIN (8) Sepsis Code(s): A41.9 - SEPSIS, UNSPECIFIED ORGANISM (9) Abdominal pain Code(s): R10.9 - UNSPECIFIED ABDOMINAL PAIN Qualifiers: Abdominal location: lower abdomen, unspecified Qualified Code(s): R10.30 - Lower abdominal pain, unspecified (10) Acute combined systolic and diastolic ACC/AHA stage C congestive heart failure Code(s): I50.41 - ACUTE COMBINED SYSTOLIC AND DIASTOLIC (CONGESTIVE) HRT FAIL (11) Acute on chronic systolic and diastolic heart failure, NYHA class 1 Code(s): I50.43 - ACUTE ON CHRONIC COMBINED SYSTOLIC AND DIASTOLIC HRT FAIL (12) CHF (congestive heart failure) Code(s): I50.9 - HEART FAILURE, UNSPECIFIED Qualifiers: Qualified Code(s): I50.22 - Chronic systolic (congestive) heart failure (13) Chest pain Code(s): R07.9 - CHEST PAIN, UNSPECIFIED Qualifiers: Chest pain type: unspecified Qualified Code(s): R07.9 - Chest pain, unspecified (14) Chronic systolic congestive heart failure Code(s): I50.22 - CHRONIC SYSTOLIC (CONGESTIVE) HEART FAILURE (15) Cigarette nicotine dependence Code(s): F17.210 - NICOTINE DEPENDENCE, CIGARETTES, UNCOMPLICATED (16) Coronary artery disease Code(s): I25.10 - ATHSCL HEART DISEASE OF [place] CORONARY ARTERY W/O ANG PCTRS (17) Depression Code(s): F32.9 - MAJOR DEPRESSIVE DISORDER, SINGLE EPISODE, UNSPECIFIED (18) Diabetes Code(s): E11.9 - TYPE 2 DIABETES MELLITUS WITHOUT COMPLICATIONS Qualifiers: Diabetes mellitus type: type 2 Diabetes mellitus lobsterman insulin use: with longterm use Diabetes mellitus complication status: with unspecified complications Qualified Code(s): E11.8 - Type 2 diabetes mellitus with unspecified complications (19) Dyspepsia Code(s): K30 - FUNCTIONAL DYSPEPSIA (20) Elevated liver function tests Code(s): R94.5 - ABNORMAL RESULTS OF LIVER FUNCTION STUDIES (21) Elevated troponin Code(s): R74.8 - ABNORMAL LEVELS OF OTHER SERUM ENZYMES (22) Fatty liver Code(s): K76.0 - FATTY (CHANGE OF) LIVER, NOT ELSEWHERE CLASSIFIED (23) Hyperbilirubinemia Code(s): E80.6 - OTHER DISORDERS OF BILIRUBIN METABOLISM (24) Hyperlipidemia Code(s): E78.5 - HYPERLIPIDEMIA, UNSPECIFIED (25) Hypertension Code(s): I10 - ESSENTIAL (PRIMARY) HYPERTENSION (26) Hypothyroidism Code(s): E03.9 - HYPOTHYROIDISM, UNSPECIFIED (27) ICD (implantable cardioverter-defibrillator) in place Code(s): Z95.810 - PRESENCE OF AUTOMATIC (IMPLANTABLE) CARDIAC DEFIBRILLATOR (28) Lower extremity edema Code(s): R60.0 - LOCALIZED EDEMA (29) NSVT (nonsustained ventricular tachycardia) Code(s): I47.2 - VENTRICULAR TACHYCARDIA (30) Noncompliance with medication regimen Code(s): Z91.14 - PATIENT'S OTHER NONCOMPLIANCE WITH MEDICATION REGIMEN (31) Peripheral neuropathy Code(s): G62.9 - POLYNEUROPATHY, UNSPECIFIED Qualifiers: Peripheral neuropathy type: polyneuropathy, unspecified Qualified Code(s): G62.9 - Polyneuropathy, unspecified (33) Sleep apnea Code(s): G47.30 - SLEEP APNEA, UNSPECIFIED (34) Sphincter of Oddi dysfunction Code(s): K83.4 - SPASM OF SPHINCTER OF ODDI (35) Status post THR (total hip replacement) Code(s): Z96.649 - PRESENCE OF UNSPECIFIED ARTIFICIAL HIP JOINT (36) Tobacco use disorder Code(s): Z72.0 - TOBACCO USE (37) Transaminitis Code(s): R74.0 - NONSPEC ELEV OF LEVELS OF TRANSAMNS & LACTIC ACID DEHYDRGNSE (38) Cardiac cirrhosis Code(s): K76.1 - CHRONIC PASSIVE CONGESTION OF LIVER Assessment/Plan HTN, HLD, DM, CAD s/p IA 2003, CABG in 2003 s/p stents2, Systolic CHF s/p ICD/ Pacemaker, COPD, current smoker, hypothyroid & peripheral neuropathy, chronic abdominal pain (thought to be due to liver cirrhosis/biliary tree strictures s/ p lap naomi for acalcalous cholecystitis 05/05) presented to the ED with sob and s/p fall last night Plan echo telemetry IV lasix supplement K
--- NOTE | 2017-07-27 13:59 | EKG ---
Test Reason : Blood Pressure : / mmHG Vent. Rate : 081 BPM Atrial Rate : 081 BPM P-R Int : 206 ms QRS Dur : 128 ms QT Int : 430 ms P-R-T Axes : 062 120 -31 degrees QTc Int : 499 ms SINUS RHYTHM WITH OCCASIONAL PREMATURE VENTRICULAR COMPLEXES AND PREMATURE ATRIAL COMPLEXES RIGHT AXIS DEVIATION NON-SPECIFIC INTRA-VENTRICULAR CONDUCTION BLOCK CANNOT RULE OUT ANTERIOR INFARCT (CITED ON OR BEFORE 04-DEC-2016) ABNORMAL ECG WHEN COMPARED WITH ECG OF 07-JAN-2017 12:26, PREMATURE VENTRICULAR COMPLEXES ARE NOW PRESENT PREMATURE ATRIAL COMPLEXES ARE NOW PRESENT Confirmed by ROSSY CHAMBERS, RILEY ([id number]) on 07/27/2017 1:58:42 PM Referred By: Confirmed By:RILEY BLAIR MD
--- NOTE | 2017-07-27 16:35 | PN ---
Progress Note (short form) - Note Progress Note: PULMONARY CONSULTATION DICTATED 07/27/17 IMP ACUTE ON CHRONIC SYSTOLIC CHF SEVERE LV DYSFUNCTION S/P ICD/PPM ASHD S/P [place] ,S/P CABG,STENTS COPD HTN HLD ABD PAIN CHRONIC TOBACCO ABUSE PLAN IV LASIX O2 ALDACTONE INHALED BRONCHODILATORS DAILY WTS MONITOR LYTES F/U CHEST CT DR CLEMENS Problem List - Problems (1) Acute on chronic systolic and diastolic heart failure, NYHA class 3 Code(s): I50.43 - ACUTE ON CHRONIC COMBINED SYSTOLIC AND DIASTOLIC HRT FAIL (2) Anasarca Code(s): R60.1 - GENERALIZED EDEMA (3) CHF exacerbation Code(s): I50.9 - HEART FAILURE, UNSPECIFIED Qualifiers: Heart failure type: unspecified Qualified Code(s): I50.9 - Heart failure, unspecified (4) Hypokalemia Code(s): E87.6 - HYPOKALEMIA (5) Shortness of breath Code(s): R06.02 - SHORTNESS OF BREATH (6) Abdominal pain Code(s): R10.9 - UNSPECIFIED ABDOMINAL PAIN Qualifiers: Abdominal location: lower abdomen, unspecified Qualified Code(s): R10.30 - Lower abdominal pain, unspecified (7) Cigarette nicotine dependence Code(s): F17.210 - NICOTINE DEPENDENCE, CIGARETTES, UNCOMPLICATED (8) Hypertension Code(s): I10 - ESSENTIAL (PRIMARY) HYPERTENSION (9) Hypothyroidism Code(s): E03.9 - HYPOTHYROIDISM, UNSPECIFIED (10) ICD (implantable cardioverter-defibrillator) in place Code(s): Z95.810 - PRESENCE OF AUTOMATIC (IMPLANTABLE) CARDIAC DEFIBRILLATOR (11) Tobacco use disorder Code(s): Z72.0 - TOBACCO USE (12) COPD (chronic obstructive pulmonary disease) Code(s): J44.9 - CHRONIC OBSTRUCTIVE PULMONARY DISEASE, UNSPECIFIED
[2017-07-27] MEDS: INSULIN SLIDING SCALE (NOVOLOG) 1 VIAL SQ SCH ×2 (17:13→21:27)
--- NOTE | 2017-07-27 18:25 | CONS ---
DATE OF CONSULTATION: 07/27/2017 PULMONARY CONSULTATION REFERRING PHYSICIAN: OLIVA Kidd HISTORY OF PRESENT ILLNESS: The patient is a 62-year-old black female with a past medical history of end-stage congestive heart failure, severe LV dysfunction status post ICD pacemaker, COPD, longstanding history of tobacco use currently still smoking 2 cigarettes daily, hypothyroidism, peripheral neuropathy, chronic abdominal pain most likely thought to be secondary to liver cirrhosis, biliary tree strictures status post laparoscopic cholecystectomy, acalculous cholecystitis, ASHD status post stent, status post CABG from 2003, status post NE 2003. Hypertension, hyperlipidemia, diabetes, admitted to [facility] with complaint of 2 week history increasing shortness of breath, dyspnea on exertion, and nonproductive cough. Patient denies any complaints of chest pain, nausea, vomiting, diaphoresis. Apparently the night prior to admission started to have increasing shortness of breath and fell. There was no loss of consciousness. She presented to the emergency room with above. In the ER, it was felt this was the result of CHF. She was admitted on Lasix and supplemental O2. She has also had a CT of the head which reveals no acute pathology. PAST MEDICAL HISTORY: Again includes hyperbilirubinemia, hypertension, hyperlipidemia, ASHD status post NE 2003, status post CABG, status post stents, systolic heart failure, severe LV dysfunction, status post ICD, pacemaker, COPD, hypothyroidism, peripheral neuropathy, chronic abdominal pain, history of vocal cord damage secondary to EMS intubation in 2016, status post PEG, subsequently removed. SOCIAL HISTORY: Positive tobacco. Apparently still smoking a few cigarettes daily. No occupational exposures. REVIEW OF SYSTEMS: Positive orthopnea. Positive dyspnea. Positive mild cough. No fever. No chills. No hemoptysis. No abdominal pain. Positive lower extremity edema. CURRENT MEDICATIONS: Include Lovenox 40 subcutaneous daily, Toprol XL, Novolog, Lasix 40 IV push, Aldactone, Plavix, Synthroid. PHYSICAL EXAMINATION: General: The patient is a well-developed, well-nourished female, awake, mildly dyspneic in no acute respiratory distress. She is currently afebrile. Vital signs: Blood pressure 127/76, respiratory rate 16, O2 saturation 97% on 2 L. HEENT: Head is normocephalic, atraumatic. Neck: Supple. Heart: Regular. S1, S2. Chest: Scattered bilateral wheezes with a few bibasilar crackles. Abdomen: Soft. Bowel sounds positive. Extremities: Bilateral lower extremity edema. LABORATORY: INR is 1.72, WBC is 5.6, hemoglobin 11.9, hematocrit 36.5, with a platelet count of 177,000. BUN 19, creatinine 1.0, CK is 374, alkaline phosphatase 156, BNP 3267. Chest x-ray shows cardiomegaly, pulmonary vascular changes, no increased pulmonary vascular congestion. IMPRESSION: 1. Cexfy-ai-mwlkhva systolic congestive heart failure. 2. Severe left ventricular dysfunction. 3. Chronic obstructive pulmonary disease. 4. Hypertension. 5. Atherosclerotic heart disease status post coronary artery bypass graft, status post stents. 6. Abdominal pain. 7. Peripheral neuropathy. 8. Hypothyroidism. PLAN: Continue Lasix. Supplemental O2. Daily weights. Inhaled bronchodilators. Follow up chest x-rays. Monitor electrolytes. MARIZA CLEMENS M.D. TUSHAR/[id number]
[2017-07-27] MEDS ORDERED: INSULIN (NOVOLOG) ASPART 100 UNITS/ML 10ML VIAL ONE (20:03)
[2017-07-28] MEDS: ALBUTEROL SO4 2.5/IPRATROPIUM 0.5 INH SOL 3 ML VIAL.NEB. NEB PRN ×2 (02:42→11:40)
[2017-07-28] MEDS: FUROSEMIDE 40 MG/4 ML INJECTABLE VIAL IVPUSH SCH ×2 (06:00→14:18)
[2017-07-28] MEDS: LEVOTHYROXINE NA 75 MCG TABLET (FP) PO SCH (06:00)
[2017-07-28] MEDS: INSULIN SLIDING SCALE (NOVOLOG) 1 VIAL SQ SCH ×4 (06:09→21:06)
--- NOTE | 2017-07-28 09:22 | PN ---
Physical Exam: SUBJECTIVE: Patient seen and examined at the bedside. sitting in chair, states breathing is better but short of breath with exertion Knows she is weak, spent months at [facility] then discharged to rehab Today, had some pain in her abdomen after drinking orange juice. Not on home oxygen but feels that she needs it as she often gets short of breath and eats ice to help her breathe better. OBJECTIVE: Abdomen mildly distended, + bowel sounds, no nausea or vomiting Course lungs sounds bilaterally, conversational dyspnea, left eye lid mildly swollen Vital Signs Period Temp Pulse Resp BP Sys/Santoro Pulse Ox Last 24 Hr 97.4 F-98.7 F 63-89 16-19 117-151/69-80 90-97 GENERAL: The patient is awake, alert, and fully oriented, in mild respiratory distress. HEAD: Normal with no signs of trauma, left eye lid mildy swollen EYES: PERRL, extraocular movements intact, sclera anicteric, conjunctiva clear. No ptosis. ENT: Ears normal, nares patent, oropharynx clear without exudates, moist mucous membranes. NECK: Trachea midline, full range of motion, supple. LUNGS: Course lungs sounds bilaterally, conversational dyspnea, left eye lid mildy swollen HEART: paced 80s ABDOMEN: mildly distended, + bowel sounds, ascites seen on CT EXTREMITIES: bilateral lower ext with non pitting edema NEUROLOGICAL: conversational dyspnea, on supplemental oxygen PSYCH: Normal mood, normal affect. SKIN: Warm, dry, normal turgor, no rashes or lesions noted Laboratory Results - last 24 hr 07/27/17 07/27/17 07/27/17 08:50 08:50 08:50 PT with INR 19.40 H INR 1.72 H PTT (Actin FS) 39.6 H Sodium 140 Potassium 3.1 L Chloride 104 Carbon Dioxide 26 Anion Gap 10 BUN 19 H Creatinine 1.0 Creat Clearance w eGFR 55.82 POC Glucometer Random Glucose 58 L Calcium 8.6 Total Bilirubin 4.0 H D AST 37 ALT 17 Alkaline Phosphatase 156 H Creatine Kinase 374 H Creatine Kinase Index 1.1 CK-MB (CK-2) 4.415 H Troponin I 0.07 H B-Natriuretic Peptide 3267.96 H Total Protein 7.7 Albumin 3.4 Lipase 36 L 07/27/17 07/27/17 07/28/17 17:10 21:26 06:03 PT with INR INR PTT (Actin FS) Sodium Potassium Chloride Carbon Dioxide Anion Gap BUN Creatinine Creat Clearance w eGFR POC Glucometer 62 104 78 Random Glucose Calcium Total Bilirubin AST ALT Alkaline Phosphatase Creatine Kinase Creatine Kinase Index CK-MB (CK-2) Troponin I B-Natriuretic Peptide Total Protein Albumin Lipase Active Medications Generic Name Dose Route Start Last Admin Trade Name Freq PRN Reason Stop Dose Admin Albuterol/Ipratropium 1 amp 07/27/17 16:35 07/28/17 02:42 Duoneb - NEB 1 amp Q6H PRN Administration SHORTNESS OF BREATH Clopidogrel Bisulfate 75 mg 07/28/17 10:00 Plavix - PO DAILY RINA Enoxaparin Sodium 40 mg 07/28/17 10:00 Lovenox - SQ DAILY RINA Furosemide 40 mg 07/28/17 06:00 07/28/17 06:00 Lasix Injection - IVPUSH 40 mg BID@0600,1400 RINA Administration Insulin Aspart 1 vial 07/27/17 16:30 07/28/17 06:09 Novolog Vial Sliding Scale - SQ Not Given ACHS RINA Protocol Levothyroxine Sodium 75 mcg 07/28/17 07:00 07/28/17 06:00 Synthroid - PO 75 mcg DAILY@0700 RINA Administration Metoprolol Succinate 100 mg 07/28/17 10:00 Toprol Xl - PO DAILY RINA Spironolactone 50 mg 07/28/17 10:00 Aldactone - PO DAILY RIAN ASSESSMENT/PLAN: Patient is a 62 year old female with a significant past medical history of hyperbilirubinemia, hypertension, hyperlipidemia, diabetes, CABG in 2003 s/p stents 2, Systolic CHF s/p ICD/Pacemaker, COPD, current smoker, hypothyroidism , peripheral neuropathy, chronic abdominal pain (thought to be due to liver cirrhosis/biliary tree strictures s/p lap naomi for acalcalous cholecystitis ). She was admitted on 07/27/2017 with shortness of breath and a fall at home. Imaging: CT/Abdomen & Pelvis CT with contrast 07/27/2017: esenteric edema and subcutaneous edema again seen suggestive of anasarca. Interval small amt of free fluid ascites in the RUQ. Hepatomegaly. Status post cholecystectomy surgical metallic clips seen with small amt of fluid in the gallbladder fossa Normal size common hepatic duct. Chest xray 07/27/2017: noted vascular congestive changes. Head CT 07/27/2017: negative Echo 07/26/2017: severely dilated LV, LV hypertrophy, LA mod. dilated, moderate pulmonic valve regurg., mod to severe mitral regurg. Cardiology Systolic Heart failure, acute on chronic Lasix 40mg IV BID Monitor weights daily, intake and output Echo reviewed Metoprolol 100mg PO daily, Aldactone 50 mg daily Monitor respiratory status CAD s/p stents/CABG On Plavix 75 mg daily Hypertension, chronic Monitor BP Hypothyroid On Synthroid 75 mcg Pulmonary Shortness of breath COPD Not home oxygen dependent Lungs with congestion bilaterally Monitor oxygen saturations with a goal of 90% or better on room air Respiratory pre and post Pulmonary following Endocrine Diabetes, chronic Novolog, BGMs F.E.N. Fluids: none/PO adequate Electrolyes: low K, repleted, low mag, repleted Nutrition: low Prophylaxis: Lovenox 40mg daily Disposition: full code.
[2017-07-28] MEDS: SPIRONOLACTONE 25 MG TABLET (FP) PO SCH (09:48)
[2017-07-28] MEDS: CLOPIDOGREL BISULFATE 75 MG TABLET (FP) PO SCH (09:48)
--- NOTE | 2017-07-28 09:48 | PN ---
Progress Note, Physician History of Present Illness: his is a 62 year old female with hyperbilirubinemia, HTN, HLD, DM, CAD s/p [place] 2003, CABG in 2003 s/p stents2, Systolic CHF s/p ICD/Pacemaker, COPD, current smoker, hypothyroid & peripheral neuropathy, chronic abdominal pain (thought to be due to liver cirrhosis/biliary tree strictures s/p lap naomi for acalcalous cholecystitis 05/05) presented to the ED with sob and s/p fall last night. The patient's grandson is with her and states she called him last night and told him that she fell on the floor and hit her head. Grandson is not sure if she lost consciousness. She is complaining of worsening SOB. Her grandson states she's been short of breath for 2 weeks. She states she threw up once last night. Last BM was this morning and was normal. She denies f/c, MOREAU, back pain, hematuria, dysuria. - Current Medication List Current Medications: Active Medications Albuterol/Ipratropium (Duoneb -) 1 amp NEB Q6H PRN PRN Reason: SHORTNESS OF BREATH Last Admin: 07/28/17 02:42 Dose: 1 amp Clopidogrel Bisulfate (Plavix -) 75 mg PO DAILY [facility] Enoxaparin Sodium (Lovenox -) 40 mg SQ DAILY [facility] Furosemide (Lasix Injection -) 40 mg IVPUSH BID@0600,1400 [facility] Last Admin: 07/28/17 06:00 Dose: 40 mg Insulin Aspart (Novolog Vial Sliding Scale -) 1 vial SQ ACHS [facility] PRN Reason: Protocol Last Admin: 07/28/17 06:09 Dose: Not Given Levothyroxine Sodium (Synthroid -) 75 mcg PO DAILY@0700 [facility] Last Admin: 07/28/17 06:00 Dose: 75 mcg Metoprolol Succinate (Toprol Xl -) 100 mg PO DAILY [facility] Spironolactone (Aldactone -) 50 mg PO DAILY [facility] - Objective Vital Signs: Vital Signs Temperature 98.1 F 07/28/17 05:00 Pulse Rate 87 07/28/17 05:00 Respiratory Rate 19 07/28/17 05:00 Blood Pressure 128/76 07/28/17 05:00 O2 Sat by Pulse Oximetry (%) 90 L 07/27/17 20:30 Eyes: Yes: WNL, Conjunctiva Clear, EOM Intact HENT: Yes: WNL, Atraumatic, Normocephalic Neck: Yes: WNL, Supple, Trachea Midline Cardiovascular: Yes: WNL, Regular Rate and Rhythm Respiratory: Yes: WNL, Regular, CTA Bilaterally Gastrointestinal: Yes: WNL, Normal Bowel Sounds Genitourinary: Yes: WNL Musculoskeletal: Yes: WNL Extremities: Yes: WNL Edema: No Integumentary: Yes: WNL Neurological: Yes: WNL, Alert, Oriented ...Motor Strength: WNL Psychiatric: Yes: WNL Labs: CBC, BMP 07/27/17 08:50 07/27/17 08:50 INR, PTT INR 1.72 (0.82-1.09) H 07/27/17 08:50 Problem List - Problems (1) Anasarca Code(s): R60.1 - GENERALIZED EDEMA (2) CHF exacerbation Code(s): I50.9 - HEART FAILURE, UNSPECIFIED Qualifiers: Heart failure type: unspecified Qualified Code(s): I50.9 - Heart failure, unspecified (3) Hypokalemia Code(s): E87.6 - HYPOKALEMIA (4) Shortness of breath Code(s): R06.02 - SHORTNESS OF BREATH (5) LIANNA (acute kidney injury) Code(s): N17.9 - ACUTE KIDNEY FAILURE, UNSPECIFIED (6) Bacteremia Code(s): R78.81 - BACTEREMIA (7) Chest pain of uncertain etiology Code(s): R07.89 - OTHER CHEST PAIN (8) Sepsis Code(s): A41.9 - SEPSIS, UNSPECIFIED ORGANISM (9) Abdominal pain Code(s): R10.9 - UNSPECIFIED ABDOMINAL PAIN Qualifiers: Abdominal location: lower abdomen, unspecified Qualified Code(s): R10.30 - Lower abdominal pain, unspecified (10) Acute combined systolic and diastolic ACC/AHA stage C congestive heart failure Code(s): I50.41 - ACUTE COMBINED SYSTOLIC AND DIASTOLIC (CONGESTIVE) HRT FAIL (11) Acute on chronic systolic and diastolic heart failure, NYHA class 1 Code(s): I50.43 - ACUTE ON CHRONIC COMBINED SYSTOLIC AND DIASTOLIC HRT FAIL (12) CHF (congestive heart failure) Code(s): I50.9 - HEART FAILURE, UNSPECIFIED (13) Chest pain Code(s): R07.9 - CHEST PAIN, UNSPECIFIED Qualifiers: Chest pain type: unspecified Qualified Code(s): R07.9 - Chest pain, unspecified (14) Chronic systolic congestive heart failure Code(s): I50.22 - CHRONIC SYSTOLIC (CONGESTIVE) HEART FAILURE (15) Cigarette nicotine dependence Code(s): F17.210 - NICOTINE DEPENDENCE, CIGARETTES, UNCOMPLICATED (16) Coronary artery disease Code(s): I25.10 - ATHSCL HEART DISEASE OF [place] CORONARY ARTERY W/O ANG PCTRS (17) Depression Code(s): F32.9 - MAJOR DEPRESSIVE DISORDER, SINGLE EPISODE, UNSPECIFIED (18) Diabetes Code(s): E11.9 - TYPE 2 DIABETES MELLITUS WITHOUT COMPLICATIONS Qualifiers: Diabetes mellitus type: type 2 Diabetes mellitus fdc insulin use: with terminal system operator use Diabetes mellitus complication status: with unspecified complications Qualified Code(s): E11.8 - Type 2 diabetes mellitus with unspecified complications (19) Dyspepsia Code(s): K30 - FUNCTIONAL DYSPEPSIA (20) Elevated liver function tests Code(s): R94.5 - ABNORMAL RESULTS OF LIVER FUNCTION STUDIES (21) Elevated troponin Code(s): R74.8 - ABNORMAL LEVELS OF OTHER SERUM ENZYMES (22) Fatty liver Code(s): K76.0 - FATTY (CHANGE OF) LIVER, NOT ELSEWHERE CLASSIFIED (23) Hyperbilirubinemia Code(s): E80.6 - OTHER DISORDERS OF BILIRUBIN METABOLISM (24) Hyperlipidemia Code(s): E78.5 - HYPERLIPIDEMIA, UNSPECIFIED (25) Hypertension Code(s): I10 - ESSENTIAL (PRIMARY) HYPERTENSION (26) Hypothyroidism Code(s): E03.9 - HYPOTHYROIDISM, UNSPECIFIED (27) ICD (implantable cardioverter-defibrillator) in place Code(s): Z95.810 - PRESENCE OF AUTOMATIC (IMPLANTABLE) CARDIAC DEFIBRILLATOR (28) Lower extremity edema Code(s): R60.0 - LOCALIZED EDEMA (29) NSVT (nonsustained ventricular tachycardia) Code(s): I47.2 - VENTRICULAR TACHYCARDIA (30) Noncompliance with medication regimen Code(s): Z91.14 - PATIENT'S OTHER NONCOMPLIANCE WITH MEDICATION REGIMEN (31) Peripheral neuropathy Code(s): G62.9 - POLYNEUROPATHY, UNSPECIFIED Qualifiers: Peripheral neuropathy type: polyneuropathy, unspecified Qualified Code(s): G62.9 - Polyneuropathy, unspecified (33) Sleep apnea Code(s): G47.30 - SLEEP APNEA, UNSPECIFIED (34) Sphincter of Oddi dysfunction Code(s): K83.4 - SPASM OF SPHINCTER OF ODDI (35) Status post THR (total hip replacement) Code(s): Z96.649 - PRESENCE OF UNSPECIFIED ARTIFICIAL HIP JOINT (36) Tobacco use disorder Code(s): Z72.0 - TOBACCO USE (37) Transaminitis Code(s): R74.0 - NONSPEC ELEV OF LEVELS OF TRANSAMNS & LACTIC ACID DEHYDRGNSE (38) Cardiac cirrhosis Code(s): K76.1 - CHRONIC PASSIVE CONGESTION OF LIVER Assessment/Plan HTN, HLD, DM, CAD s/p [place] 2003, CABG in 2003 s/p stents2, Systolic CHF s/p ICD/ Pacemaker, COPD, current smoker, hypothyroid & peripheral neuropathy, chronic abdominal pain (thought to be due to liver cirrhosis/biliary tree strictures s/ p lap naomi for acalcalous cholecystitis 05/05) presented to the ED with sob and s/p fall last night Plan echo telemetry IV lasix supplement K
[2017-07-28] MEDS: ENOXAPARIN NA (PORCINE) 40 MG/0.4 ML DISP.SYRIN SQ SCH (09:52)
[2017-07-28] MEDS ORDERED: FUROSEMIDE 40 MG/4 ML INJECTABLE VIAL IVPUSH SCH (10:00)
[2017-07-28 10:11] LABS: BASO % 0.2 % (0-2.0); HEMATOCRIT 35.8 % (32.4-45.2); HEMOGLOBIN 11.6 GM/dL (10.7-15.3); LYMPH % 12.6 % (8-40); MCH 27.9 pg (25.7-33.7); MCHC 32.4 g/dl (32.0-36.0); MEAN CELL VOLUME 86.1 fl (80-96); MEAN PLT VOLUME 7.7 fl (7.5-11.1); MONO % 17.7 % (3.8-10.2); NEUT % 69.5 % (42.8-82.8); PLATELET COUNT 164 K/MM3 (134-434); RBC 4.16 M/mm3 (3.60-5.2); RDW 16.7 % (11.6-15.6); WHITE BLOOD COUNT 5.7 K/mm3 (4.0-10.0)
[2017-07-28 10:46] LABS: ALBUMIN 3.1 g/dl (3.4-5.0); ANION GAP 8 (8-16); BILIRUBIN,TOTAL 3.9 mg/dL (0.2-1.0); BLOOD UREA NITROGEN 19 mg/dL (7-18); CHLORIDE 102 mmol/L (98-107); CO2 31 mmol/L (21-32); CREATININE 0.9 mg/dL (0.55-1.02); GLUCOSE,RANDOM 139 mg/dL (74-106); MAGNESIUM 1.7 mg/dL (1.8-2.4); PHOSPHOROUS 2.6 mg/dL (2.5-4.9); POTASSIUM 3.1 mmol/L (3.5-5.1); SGOT/AST 39 U/L (15-37); SGPT/ALT 17 U/L (12-78); SODIUM 141 mmol/L (136-145); TOT PROT 7.2 g/dl (6.4-8.2)
[2017-07-28 10:55] LABS: ALK PHOS 135 U/L (45-117)
--- NOTE | 2017-07-28 10:56 | PN ---
Progress Note, Physician History of Present Illness: pulmonary awake,no distress,-tachypnea - Current Medication List Current Medications: Active Medications Albuterol/Ipratropium (Duoneb -) 1 amp NEB Q6H PRN PRN Reason: SHORTNESS OF BREATH Last Admin: 07/28/17 02:42 Dose: 1 amp Clopidogrel Bisulfate (Plavix -) 75 mg PO DAILY [facility] Last Admin: 07/28/17 09:48 Dose: 75 mg Enoxaparin Sodium (Lovenox -) 40 mg SQ DAILY [facility] Last Admin: 07/28/17 09:52 Dose: Not Given Furosemide (Lasix Injection -) 40 mg IVPUSH BID@0600,1400 [facility] Last Admin: 07/28/17 06:00 Dose: 40 mg Insulin Aspart (Novolog Vial Sliding Scale -) 1 vial SQ ACHS [facility] PRN Reason: Protocol Last Admin: 07/28/17 06:09 Dose: Not Given Levothyroxine Sodium (Synthroid -) 75 mcg PO DAILY@0700 [facility] Last Admin: 07/28/17 06:00 Dose: 75 mcg Metoprolol Succinate (Toprol Xl -) 100 mg PO DAILY [facility] Last Admin: 07/28/17 09:47 Dose: 100 mg Spironolactone (Aldactone -) 50 mg PO DAILY [facility] Last Admin: 07/28/17 09:48 Dose: 50 mg - Objective Vital Signs: Vital Signs Temperature 98.1 F 07/28/17 05:00 Pulse Rate 87 07/28/17 05:00 Respiratory Rate 19 07/28/17 05:00 Blood Pressure 128/76 07/28/17 05:00 O2 Sat by Pulse Oximetry (%) 90 L 07/27/17 20:30 Constitutional: Yes: Well Nourished, Calm Eyes: Yes: WNL HENT: Yes: WNL Neck: Yes: WNL Cardiovascular: Yes: Regular Rate and Rhythm, S1, S2 Respiratory: Yes: Rales, Wheezes (bibasilar rales and scattered gema wheezes) Gastrointestinal: Yes: Normal Bowel Sounds, Soft Extremities: Yes: WNL Edema: Yes Labs: CBC, BMP 07/28/17 10:00 INR, PTT INR 1.72 (0.82-1.09) H 07/27/17 08:50 Problem List - Problems (1) Acute on chronic systolic and diastolic heart failure, NYHA class 3 Code(s): I50.43 - ACUTE ON CHRONIC COMBINED SYSTOLIC AND DIASTOLIC HRT FAIL (2) Anasarca Code(s): R60.1 - GENERALIZED EDEMA (3) CHF exacerbation Code(s): I50.9 - HEART FAILURE, UNSPECIFIED Qualifiers: Heart failure type: unspecified Qualified Code(s): I50.9 - Heart failure, unspecified (4) Hypokalemia Code(s): E87.6 - HYPOKALEMIA (5) Shortness of breath Code(s): R06.02 - SHORTNESS OF BREATH (6) Abdominal pain Code(s): R10.9 - UNSPECIFIED ABDOMINAL PAIN Qualifiers: Abdominal location: lower abdomen, unspecified Qualified Code(s): R10.30 - Lower abdominal pain, unspecified (7) Cigarette nicotine dependence Code(s): F17.210 - NICOTINE DEPENDENCE, CIGARETTES, UNCOMPLICATED (8) Hypertension Code(s): I10 - ESSENTIAL (PRIMARY) HYPERTENSION (9) Hypothyroidism Code(s): E03.9 - HYPOTHYROIDISM, UNSPECIFIED (10) ICD (implantable cardioverter-defibrillator) in place Code(s): Z95.810 - PRESENCE OF AUTOMATIC (IMPLANTABLE) CARDIAC DEFIBRILLATOR (11) Tobacco use disorder Code(s): Z72.0 - TOBACCO USE (12) COPD (chronic obstructive pulmonary disease) Code(s): J44.9 - CHRONIC OBSTRUCTIVE PULMONARY DISEASE, UNSPECIFIED Assessment/Plan IMP ACUTE ON CHRONIC SYSTOLIC CHF SEVERE LV DYSFUNCTION S/P ICD/PPM ASHD S/P [place] ,S/P CABG,STENTS COPD HTN HLD ABD PAIN CHRONIC TOBACCO ABUSE PLAN IV LASIX O2 ALDACTONE INHALED BRONCHODILATORS DAILY WTS MONITOR NATALIA CLEMENS Problem List - Problems (1) Acute on chronic systolic and diastolic heart failure, NYHA class 3 Code(s): I50.43 - ACUTE ON CHRONIC COMBINED SYSTOLIC AND DIASTOLIC HRT FAIL (2) Anasarca Code(s): R60.1 - GENERALIZED EDEMA (3) CHF exacerbation Code(s): I50.9 - HEART FAILURE, UNSPECIFIED Qualifiers: Heart failure type: unspecified Qualified Code(s): I50.9 - Heart failure, unspecified (4) Hypokalemia Code(s): E87.6 - HYPOKALEMIA (5) Shortness of breath Code(s): R06.02 - SHORTNESS OF BREATH (6) Abdominal pain Code(s): R10.9 - UNSPECIFIED ABDOMINAL PAIN Qualifiers: Abdominal location: lower abdomen, unspecified Qualified Code(s): R10.30 - Lower abdominal pain, unspecified (7) Cigarette nicotine dependence Code(s): F17.210 - NICOTINE DEPENDENCE, CIGARETTES, UNCOMPLICATED (8) Hypertension Code(s): I10 - ESSENTIAL (PRIMARY) HYPERTENSION (9) Hypothyroidism Code(s): E03.9 - HYPOTHYROIDISM, UNSPECIFIED (10) ICD (implantable cardioverter-defibrillator) in place Code(s): Z95.810 - PRESENCE OF AUTOMATIC (IMPLANTABLE) CARDIAC DEFIBRILLATOR (11) Tobacco use disorder Code(s): Z72.0 - TOBACCO USE (12) COPD (chronic obstructive pulmonary disease) Code(s): J44.9 - CHRONIC OBSTRUCTIVE PULMONARY DISEASE, UNSPECIFIED
[2017-07-28] MEDS ORDERED: MAGNESIUM 2GM/50ML STERILE WATER IVPB IVPB ONE (11:34)
[2017-07-28] MEDS ORDERED: POTASSIUM CHLORIDE TABS 20 MEQ TABLET.ER (FP) PO ONE (13:00)
[2017-07-29] MEDS: INSULIN SLIDING SCALE (NOVOLOG) 1 VIAL SQ SCH ×4 (06:27→21:32)
[2017-07-29] MEDS: FUROSEMIDE 40 MG/4 ML INJECTABLE VIAL IVPUSH SCH ×2 (06:27→14:25)
[2017-07-29] MEDS: LEVOTHYROXINE NA 75 MCG TABLET (FP) PO SCH (06:31)
[2017-07-29] MEDS: ALBUTEROL SO4 2.5/IPRATROPIUM 0.5 INH SOL 3 ML VIAL.NEB. NEB PRN ×3 (06:50→20:45)
--- NOTE | 2017-07-29 09:20 | PN ---
Progress Note, Physician History of Present Illness: his is a 62 year old female with hyperbilirubinemia, HTN, HLD, DM, CAD s/p [place] 2003, CABG in 2003 s/p stents2, Systolic CHF s/p ICD/Pacemaker, COPD, current smoker, hypothyroid & peripheral neuropathy, chronic abdominal pain (thought to be due to liver cirrhosis/biliary tree strictures s/p lap naomi for acalcalous cholecystitis 05/05) presented to the ED with sob and s/p fall last night. The patient's grandson is with her and states she called him last night and told him that she fell on the floor and hit her head. Grandson is not sure if she lost consciousness. She is complaining of worsening SOB. Her grandson states she's been short of breath for 2 weeks. She states she threw up once last night. Last BM was this morning and was normal. She denies f/c, MOREAU, back pain, hematuria, dysuria. - Current Medication List Current Medications: Active Medications Albuterol/Ipratropium (Duoneb -) 1 amp NEB Q6H PRN PRN Reason: SHORTNESS OF BREATH Last Admin: 07/29/17 06:50 Dose: 1 amp Clopidogrel Bisulfate (Plavix -) 75 mg PO DAILY [facility] Last Admin: 07/28/17 09:48 Dose: 75 mg Enoxaparin Sodium (Lovenox -) 40 mg SQ DAILY [facility] Last Admin: 07/28/17 09:52 Dose: Not Given Furosemide (Lasix Injection -) 40 mg IVPUSH BID@0600,1400 [facility] Last Admin: 07/29/17 06:27 Dose: 40 mg Insulin Aspart (Novolog Vial Sliding Scale -) 1 vial SQ ACHS [facility] PRN Reason: Protocol Last Admin: 07/29/17 06:27 Dose: Not Given Levothyroxine Sodium (Synthroid -) 75 mcg PO DAILY@0700 [facility] Last Admin: 07/29/17 06:31 Dose: 75 mcg Metoprolol Succinate (Toprol Xl -) 100 mg PO DAILY [facility] Last Admin: 07/28/17 09:47 Dose: 100 mg Spironolactone (Aldactone -) 50 mg PO DAILY [facility] Last Admin: 07/28/17 09:48 Dose: 50 mg - Objective Vital Signs: Vital Signs Temperature 98 F 07/29/17 06:00 Pulse Rate 71 03/11/18 06:00 Respiratory Rate 22 07/29/17 06:00 Blood Pressure 130/70 07/29/17 06:00 O2 Sat by Pulse Oximetry (%) 99 07/28/17 21:00 Eyes: Yes: WNL, Conjunctiva Clear, EOM Intact HENT: Yes: WNL, Atraumatic, Normocephalic Neck: Yes: WNL, Supple, Trachea Midline Cardiovascular: Yes: WNL, Regular Rate and Rhythm Respiratory: Yes: Rales Gastrointestinal: Yes: WNL, Normal Bowel Sounds Genitourinary: Yes: WNL Musculoskeletal: Yes: WNL Extremities: Yes: WNL Edema: Yes Integumentary: Yes: WNL Neurological: Yes: WNL, Alert, Oriented ...Motor Strength: WNL Psychiatric: Yes: WNL Labs: CBC, BMP 07/28/17 10:00 07/28/17 10:00 INR, PTT INR 1.72 (0.82-1.09) H 07/27/17 08:50 Problem List - Problems (1) Anasarca Code(s): R60.1 - GENERALIZED EDEMA (2) CHF exacerbation Code(s): I50.9 - HEART FAILURE, UNSPECIFIED Qualifiers: Heart failure type: unspecified Qualified Code(s): I50.9 - Heart failure, unspecified (3) Hypokalemia Code(s): E87.6 - HYPOKALEMIA (4) Shortness of breath Code(s): R06.02 - SHORTNESS OF BREATH (5) LIANNA (acute kidney injury) Code(s): N17.9 - ACUTE KIDNEY FAILURE, UNSPECIFIED (6) Bacteremia Code(s): R78.81 - BACTEREMIA (7) Chest pain of uncertain etiology Code(s): R07.89 - OTHER CHEST PAIN (8) Sepsis Code(s): A41.9 - SEPSIS, UNSPECIFIED ORGANISM (9) Abdominal pain Code(s): R10.9 - UNSPECIFIED ABDOMINAL PAIN Qualifiers: Abdominal location: lower abdomen, unspecified Qualified Code(s): R10.30 - Lower abdominal pain, unspecified (10) Acute combined systolic and diastolic ACC/AHA stage C congestive heart failure Code(s): I50.41 - ACUTE COMBINED SYSTOLIC AND DIASTOLIC (CONGESTIVE) HRT FAIL (11) Acute on chronic systolic and diastolic heart failure, NYHA class 1 Code(s): I50.43 - ACUTE ON CHRONIC COMBINED SYSTOLIC AND DIASTOLIC HRT FAIL (12) CHF (congestive heart failure) Code(s): I50.9 - HEART FAILURE, UNSPECIFIED (13) Chest pain Code(s): R07.9 - CHEST PAIN, UNSPECIFIED Qualifiers: Chest pain type: unspecified Qualified Code(s): R07.9 - Chest pain, unspecified (14) Chronic systolic congestive heart failure Code(s): I50.22 - CHRONIC SYSTOLIC (CONGESTIVE) HEART FAILURE (15) Cigarette nicotine dependence Code(s): F17.210 - NICOTINE DEPENDENCE, CIGARETTES, UNCOMPLICATED (16) Coronary artery disease Code(s): I25.10 - ATHSCL HEART DISEASE OF [place] CORONARY ARTERY W/O ANG PCTRS (17) Depression Code(s): F32.9 - MAJOR DEPRESSIVE DISORDER, SINGLE EPISODE, UNSPECIFIED (18) Diabetes Code(s): E11.9 - TYPE 2 DIABETES MELLITUS WITHOUT COMPLICATIONS Qualifiers: Diabetes mellitus type: type 2 Diabetes mellitus terminal system operator insulin use: with terminal system operator use Diabetes mellitus complication status: with unspecified complications Qualified Code(s): E11.8 - Type 2 diabetes mellitus with unspecified complications (19) Dyspepsia Code(s): K30 - FUNCTIONAL DYSPEPSIA (20) Elevated liver function tests Code(s): R94.5 - ABNORMAL RESULTS OF LIVER FUNCTION STUDIES (21) Elevated troponin Code(s): R74.8 - ABNORMAL LEVELS OF OTHER SERUM ENZYMES (22) Fatty liver Code(s): K76.0 - FATTY (CHANGE OF) LIVER, NOT ELSEWHERE CLASSIFIED (23) Hyperbilirubinemia Code(s): E80.6 - OTHER DISORDERS OF BILIRUBIN METABOLISM (24) Hyperlipidemia Code(s): E78.5 - HYPERLIPIDEMIA, UNSPECIFIED (25) Hypertension Code(s): I10 - ESSENTIAL (PRIMARY) HYPERTENSION (26) Hypothyroidism Code(s): E03.9 - HYPOTHYROIDISM, UNSPECIFIED (27) ICD (implantable cardioverter-defibrillator) in place Code(s): Z95.810 - PRESENCE OF AUTOMATIC (IMPLANTABLE) CARDIAC DEFIBRILLATOR (28) Lower extremity edema Code(s): R60.0 - LOCALIZED EDEMA (29) NSVT (nonsustained ventricular tachycardia) Code(s): I47.2 - VENTRICULAR TACHYCARDIA (30) Noncompliance with medication regimen Code(s): Z91.14 - PATIENT'S OTHER NONCOMPLIANCE WITH MEDICATION REGIMEN (31) Peripheral neuropathy Code(s): G62.9 - POLYNEUROPATHY, UNSPECIFIED Qualifiers: Peripheral neuropathy type: polyneuropathy, unspecified Qualified Code(s): G62.9 - Polyneuropathy, unspecified (33) Sleep apnea Code(s): G47.30 - SLEEP APNEA, UNSPECIFIED (34) Sphincter of Oddi dysfunction Code(s): K83.4 - SPASM OF SPHINCTER OF ODDI (35) Status post THR (total hip replacement) Code(s): Z96.649 - PRESENCE OF UNSPECIFIED ARTIFICIAL HIP JOINT (36) Tobacco use disorder Code(s): Z72.0 - TOBACCO USE (37) Transaminitis Code(s): R74.0 - NONSPEC ELEV OF LEVELS OF TRANSAMNS & LACTIC ACID DEHYDRGNSE (38) Cardiac cirrhosis Code(s): K76.1 - CHRONIC PASSIVE CONGESTION OF LIVER Assessment/Plan HTN, HLD, DM, CAD s/p [place] 2003, CABG in 2003 s/p stents2, Systolic CHF s/p ICD/ Pacemaker, COPD, current smoker, hypothyroid & peripheral neuropathy, chronic abdominal pain (thought to be due to liver cirrhosis/biliary tree strictures s/ p lap naomi for acalcalous cholecystitis 05/05) presented to the ED with sob and s/p fall last night Plan telemetry IV lasix supplement K
[2017-07-29] MEDS: SPIRONOLACTONE 25 MG TABLET (FP) PO SCH (09:40)
[2017-07-29] MEDS: CLOPIDOGREL BISULFATE 75 MG TABLET (FP) PO SCH (09:40)
[2017-07-29] MEDS: ENOXAPARIN NA (PORCINE) 40 MG/0.4 ML DISP.SYRIN SQ SCH (09:44)
[2017-07-29 10:05] LABS: BASO % 0.2 % (0-2.0); HEMOGLOBIN 11.4 GM/dL (10.7-15.3); LYMPH % 11.7 % (8-40); MCH 28.3 pg (25.7-33.7); MCHC 32.7 g/dl (32.0-36.0); MEAN CELL VOLUME 86.7 fl (80-96); MEAN PLT VOLUME 7.9 fl (7.5-11.1); MONO % 12.4 % (3.8-10.2); NEUT % 75.7 % (42.8-82.8); PLATELET COUNT 144 K/MM3 (134-434); RBC 4.04 M/mm3 (3.60-5.2); RDW 16.7 % (11.6-15.6); WHITE BLOOD COUNT 8.4 K/mm3 (4.0-10.0)
[2017-07-29 10:19] LABS: CHLORIDE 102 mmol/L (98-107); POTASSIUM 3.2 mmol/L (3.5-5.1); SODIUM 142 mmol/L (136-145)
[2017-07-29 10:37] LABS: ALK PHOS 131 U/L (45-117); ANION GAP 9 (8-16); BILIRUBIN,TOTAL 3.5 mg/dL (0.2-1.0); BLOOD UREA NITROGEN 20 mg/dL (7-18); CALCIUM 7.8 mg/dL (8.5-10.1); CO2 31 mmol/L (21-32); GLUCOSE,RANDOM 128 mg/dL (74-106); SGOT/AST 38 U/L (15-37); SGPT/ALT 15 U/L (12-78)
[2017-07-29] MEDS ORDERED: POTASSIUM CHLORIDE TABS 20 MEQ TABLET.ER (FP) PO ONE (10:45)
--- NOTE | 2017-07-29 11:07 | PN ---
Progress Note, Physician History of Present Illness: pulmonary awake,-resp distress,o2 sat 100% on nasal canula 2L02 - Current Medication List Current Medications: Active Medications Albuterol/Ipratropium (Duoneb -) 1 amp NEB Q6H PRN PRN Reason: SHORTNESS OF BREATH Last Admin: 07/29/17 06:50 Dose: 1 amp Clopidogrel Bisulfate (Plavix -) 75 mg PO DAILY [facility] Last Admin: 07/29/17 09:40 Dose: 75 mg Enoxaparin Sodium (Lovenox -) 40 mg SQ DAILY [facility] Last Admin: 07/29/17 09:44 Dose: Not Given Furosemide (Lasix Injection -) 40 mg IVPUSH BID@0600,1400 [facility] Last Admin: 07/29/17 06:27 Dose: 40 mg Insulin Aspart (Novolog Vial Sliding Scale -) 1 vial SQ ACHS [facility] PRN Reason: Protocol Last Admin: 07/29/17 06:27 Dose: Not Given Levothyroxine Sodium (Synthroid -) 75 mcg PO DAILY@0700 [facility] Last Admin: 07/29/17 06:31 Dose: 75 mcg Metoprolol Succinate (Toprol Xl -) 100 mg PO DAILY [facility] Last Admin: 07/29/17 09:40 Dose: 100 mg Nicotine (Nicoderm Patch -) 21 mg TD DAILY [facility] Spironolactone (Aldactone -) 50 mg PO DAILY [facility] Last Admin: 07/29/17 09:40 Dose: 50 mg - Objective Vital Signs: Vital Signs Temperature 98.4 F 07/29/17 09:38 Pulse Rate 76 07/29/17 09:38 Respiratory Rate 20 07/29/17 09:38 Blood Pressure 118/77 07/29/17 09:38 O2 Sat by Pulse Oximetry (%) 99 07/28/17 21:00 Constitutional: Yes: Well Nourished, Calm Eyes: Yes: WNL HENT: Yes: WNL Neck: Yes: WNL Cardiovascular: Yes: Regular Rate and Rhythm, S1, S2 Respiratory: Yes: Rales (bilateral rales) Gastrointestinal: Yes: Normal Bowel Sounds, Soft Extremities: Yes: WNL Edema: Yes Labs: CBC, BMP 07/29/17 09:40 07/29/17 09:40 INR, PTT INR 1.72 (0.82-1.09) H 07/27/17 08:50 Problem List - Problems (1) Acute on chronic systolic and diastolic heart failure, NYHA class 3 Code(s): I50.43 - ACUTE ON CHRONIC COMBINED SYSTOLIC AND DIASTOLIC HRT FAIL (2) Anasarca Code(s): R60.1 - GENERALIZED EDEMA (3) CHF exacerbation Code(s): I50.9 - HEART FAILURE, UNSPECIFIED Qualifiers: Heart failure type: unspecified Qualified Code(s): I50.9 - Heart failure, unspecified (4) Hypokalemia Code(s): E87.6 - HYPOKALEMIA (5) Shortness of breath Code(s): R06.02 - SHORTNESS OF BREATH (6) Abdominal pain Code(s): R10.9 - UNSPECIFIED ABDOMINAL PAIN Qualifiers: Abdominal location: lower abdomen, unspecified Qualified Code(s): R10.30 - Lower abdominal pain, unspecified (7) Cigarette nicotine dependence Code(s): F17.210 - NICOTINE DEPENDENCE, CIGARETTES, UNCOMPLICATED (8) Hypertension Code(s): I10 - ESSENTIAL (PRIMARY) HYPERTENSION (9) Hypothyroidism Code(s): E03.9 - HYPOTHYROIDISM, UNSPECIFIED (10) ICD (implantable cardioverter-defibrillator) in place Code(s): Z95.810 - PRESENCE OF AUTOMATIC (IMPLANTABLE) CARDIAC DEFIBRILLATOR (11) Tobacco use disorder Code(s): Z72.0 - TOBACCO USE (12) COPD (chronic obstructive pulmonary disease) Code(s): J44.9 - CHRONIC OBSTRUCTIVE PULMONARY DISEASE, UNSPECIFIED Assessment/Plan IMP ACUTE ON CHRONIC SYSTOLIC CHF SEVERE LV DYSFUNCTION S/P ICD/PPM ASHD S/P [place] ,S/P CABG,STENTS COPD HTN HLD ABD PAIN CHRONIC TOBACCO ABUSE PLAN IV LASIX O2 ALDACTONE INHALED BRONCHODILATORS DAILY WTS MONITOR LYTES REPLETE K DR CLEMENS Problem List - Problems (1) Acute on chronic systolic and diastolic heart failure, NYHA class 3 Code(s): I50.43 - ACUTE ON CHRONIC COMBINED SYSTOLIC AND DIASTOLIC HRT FAIL (2) Anasarca Code(s): R60.1 - GENERALIZED EDEMA (3) CHF exacerbation Code(s): I50.9 - HEART FAILURE, UNSPECIFIED Qualifiers: Heart failure type: unspecified Qualified Code(s): I50.9 - Heart failure, unspecified (4) Hypokalemia Code(s): E87.6 - HYPOKALEMIA (5) Shortness of breath Code(s): R06.02 - SHORTNESS OF BREATH (6) Abdominal pain Code(s): R10.9 - UNSPECIFIED ABDOMINAL PAIN Qualifiers: Abdominal location: lower abdomen, unspecified Qualified Code(s): R10.30 - Lower abdominal pain, unspecified (7) Cigarette nicotine dependence Code(s): F17.210 - NICOTINE DEPENDENCE, CIGARETTES, UNCOMPLICATED (8) Hypertension Code(s): I10 - ESSENTIAL (PRIMARY) HYPERTENSION (9) Hypothyroidism Code(s): E03.9 - HYPOTHYROIDISM, UNSPECIFIED (10) ICD (implantable cardioverter-defibrillator) in place Code(s): Z95.810 - PRESENCE OF AUTOMATIC (IMPLANTABLE) CARDIAC DEFIBRILLATOR (11) Tobacco use disorder Code(s): Z72.0 - TOBACCO USE (12) COPD (chronic obstructive pulmonary disease) Code(s): J44.9 - CHRONIC OBSTRUCTIVE PULMONARY DISEASE, UNSPECIFIED
[2017-07-29] MEDS: NICOTINE 21 MG/24 HOURS TOPICAL PATCH TD SCH (11:32)
--- NOTE | 2017-07-29 15:34 | PN ---
Physical Exam: SUBJECTIVE: Patient seen and examined. Feels tired today, wants to sleep. OBJECTIVE: Vital Signs Period Temp Pulse Resp BP Sys/Santoro Pulse Ox Last 24 Hr 98 F-99 F 60-76 18-22 105-130/56-77 99 GENERAL: The patient is awake, alert, and fully oriented, HEAD: Normal with no signs of trauma, left eye lid mildy swollen EYES: PERRL, extraocular movements intact, sclera anicteric, conjunctiva clear. No ptosis. ENT: Ears normal, nares patent, oropharynx clear without exudates, moist mucous membranes. NECK: Trachea midline, full range of motion, supple. LUNGS: Course lungs sounds bilaterally HEART: paced 80s ABDOMEN: mildly distended, + bowel sounds, ascites seen on CT EXTREMITIES: bilateral lower ext with non pitting edema NEUROLOGICAL: conversational dyspnea, on supplemental oxygen PSYCH: Normal mood, normal affect. SKIN: Warm, dry, normal turgor, no rashes or lesions noted Laboratory Results - last 24 hr 07/28/17 07/28/17 07/29/17 17:27 21:00 06:21 WBC RBC Hgb Hct MCV MCH MCHC RDW Plt Count MPV Neutrophils % Lymphocytes % Monocytes % Eosinophils % Basophils % Sodium Potassium Chloride Carbon Dioxide Anion Gap BUN Creatinine Creat Clearance w eGFR POC Glucometer 97 83 76 Random Glucose Calcium Magnesium Total Bilirubin AST ALT Alkaline Phosphatase Total Protein Albumin 07/29/17 07/29/17 07/29/17 09:40 09:40 11:34 WBC 8.4 D RBC 4.04 Hgb 11.4 Hct 35.0 MCV 86.7 MCH 28.3 MCHC 32.7 RDW 16.7 H Plt Count 144 MPV 7.9 Neutrophils % 75.7 Lymphocytes % 11.7 Monocytes % 12.4 H Eosinophils % 0.0 Basophils % 0.2 Sodium 142 Potassium 3.2 L Chloride 102 Carbon Dioxide 31 Anion Gap 9 BUN 20 H Creatinine 1.0 Creat Clearance w eGFR 55.82 POC Glucometer 126 Random Glucose 128 H Calcium 7.8 L Magnesium 2.0 Total Bilirubin 3.5 H AST 38 H ALT 15 Alkaline Phosphatase 131 H Total Protein 7.0 Albumin 3.0 L Active Medications Generic Name Dose Route Start Last Admin Trade Name Freq PRN Reason Stop Dose Admin Albuterol/Ipratropium 1 amp 07/27/17 16:35 07/29/17 12:03 Duoneb - NEB 1 amp Q6H PRN Administration SHORTNESS OF BREATH Clopidogrel Bisulfate 75 mg 07/28/17 10:00 07/29/17 09:40 Plavix - PO 75 mg DAILY [facility] Administration Enoxaparin Sodium 40 mg 07/28/17 10:00 07/29/17 09:44 Lovenox - SQ Not Given DAILY [facility]INA Furosemide 40 mg 07/28/17 06:00 07/29/17 14:25 Lasix Injection - IVPUSH 40 mg BID@0600,1400 [facility] Administration Insulin Aspart 1 vial 07/27/17 16:30 07/29/17 11:36 Novolog Vial Sliding Scale - SQ Not Given A[facility]S [facility] Protocol Levothyroxine Sodium 75 mcg 07/28/17 07:00 07/29/17 06:31 Synthroid - PO 75 mcg DAILY@0700 [facility] Administration Metoprolol Succinate 100 mg 07/28/17 10:00 07/29/17 09:40 Toprol Xl - PO 100 mg DAILY [facility] Administration Nicotine 21 mg 07/29/17 11:00 07/29/17 11:32 Nicoderm Patch - TD Not Given DAILY [facility] Spironolactone 50 mg 07/28/17 10:00 07/29/17 09:40 Aldactone - PO 50 mg DAILY [facility] Administration ASSESSMENT/PLAN: Patient is a 62 year old female with a significant past medical history of hyperbilirubinemia, hypertension, hyperlipidemia, diabetes, CABG in 2003 s/p stents 2, Systolic CHF s/p ICD/Pacemaker, COPD, current smoker, hypothyroidism , peripheral neuropathy, chronic abdominal pain (thought to be due to liver cirrhosis/biliary tree strictures s/p lap naomi for acalcalous cholecystitis ). She was admitted on 07/27/2017 with shortness of breath and a fall at home. Imaging: CT/Abdomen & Pelvis CT with contrast 07/27/2017: esenteric edema and subcutaneous edema again seen suggestive of anasarca. Interval small amt of free fluid ascites in the RUQ. Hepatomegaly. Status post cholecystectomy surgical metallic clips seen with small amt of fluid in the gallbladder fossa Normal size common hepatic duct. Chest xray 07/27/2017: noted vascular congestive changes. Head CT 07/27/2017: negative Echo 07/26/2017: severely dilated LV, LV hypertrophy, LA mod. dilated, moderate pulmonic valve regurg., mod to severe mitral regurg. Cardiology Systolic Heart failure, acute on chronic Lasix 40mg IV BID Monitor weights daily, intake and output Echo reviewed, EF 25% Metoprolol 100mg PO daily, Aldactone 50 mg daily Monitor respiratory status CAD s/p stents/CABG On Plavix 75 mg daily Hypertension, chronic Monitor BP Hypothyroid On Synthroid 75 mcg TSH wnl Pulmonary Shortness of breath COPD Not home oxygen dependent Lungs with congestion bilaterally Monitor oxygen saturations with a goal of 90% or better on room air Respiratory pre and post Nicotine patch, smoking cessation Pulmonary following Endocrine Diabetes, chronic Novolog, BGMs F.E.N. Fluids: none/PO adequate Electrolyes: low K, repleted Nutrition: low Prophylaxis: Lovenox 40mg daily Disposition: full code.
[2017-07-30] MEDS: FUROSEMIDE 40 MG/4 ML INJECTABLE VIAL IVPUSH SCH ×2 (06:41→14:58)
[2017-07-30] MEDS: INSULIN SLIDING SCALE (NOVOLOG) 1 VIAL SQ SCH ×4 (06:41→21:30)
[2017-07-30] MEDS: LEVOTHYROXINE NA 75 MCG TABLET (FP) PO SCH (06:41)
[2017-07-30 06:42] LABS: BASO % 0.3 % (0-2.0); HEMOGLOBIN 11.5 GM/dL (10.7-15.3); LYMPH % 21.1 % (8-40); MCH 28.4 pg (25.7-33.7); MEAN CELL VOLUME 86.2 fl (80-96); MEAN PLT VOLUME 8.3 fl (7.5-11.1); MONO % 15.6 % (3.8-10.2); PLATELET COUNT 142 K/MM3 (134-434); RBC 4.06 M/mm3 (3.60-5.2); WHITE BLOOD COUNT 5.8 K/mm3 (4.0-10.0)
[2017-07-30 06:54] LABS: ALBUMIN 3.1 g/dl (3.4-5.0); ALK PHOS 135 U/L (45-117); ANION GAP 7 (8-16); BLOOD UREA NITROGEN 17 mg/dL (7-18); CALCIUM 7.9 mg/dL (8.5-10.1); CHLORIDE 102 mmol/L (98-107); CO2 31 mmol/L (21-32); CREATININE 0.8 mg/dL (0.55-1.02); GLUCOSE,RANDOM 69 mg/dL (74-106); MAGNESIUM 1.8 mg/dL (1.8-2.4); POTASSIUM 3.2 mmol/L (3.5-5.1); SGOT/AST 37 U/L (15-37); SGPT/ALT 16 U/L (12-78); SODIUM 140 mmol/L (136-145); TOT PROT 7.4 g/dl (6.4-8.2)
[2017-07-30] MEDS: ALBUTEROL SO4 2.5/IPRATROPIUM 0.5 INH SOL 3 ML VIAL.NEB. NEB PRN (07:40)
[2017-07-30] MEDS ORDERED: POTASSIUM CHLORIDE TABS 20 MEQ TABLET.ER (FP) PO ONE (08:15)
[2017-07-30] MEDS: SPIRONOLACTONE 25 MG TABLET (FP) PO SCH (08:59)
[2017-07-30] MEDS: CLOPIDOGREL BISULFATE 75 MG TABLET (FP) PO SCH (08:59)
[2017-07-30] MEDS: ENOXAPARIN NA (PORCINE) 40 MG/0.4 ML DISP.SYRIN SQ SCH (09:08)
[2017-07-30] MEDS: NICOTINE 21 MG/24 HOURS TOPICAL PATCH TD SCH (09:08)
--- NOTE | 2017-07-30 11:23 | PN ---
Progress Note, Physician History of Present Illness: his is a 62 year old female with hyperbilirubinemia, HTN, HLD, DM, CAD s/p MT 2003, CABG in 2003 s/p stents2, Systolic CHF s/p ICD/Pacemaker, COPD, current smoker, hypothyroid & peripheral neuropathy, chronic abdominal pain (thought to be due to liver cirrhosis/biliary tree strictures s/p lap naomi for acalcalous cholecystitis 05/05) presented to the ED with sob and s/p fall last night. The patient's grandson is with her and states she called him last night and told him that she fell on the floor and hit her head. Grandson is not sure if she lost consciousness. She is complaining of worsening SOB. Her grandson states she's been short of breath for 2 weeks. She states she threw up once last night. Last BM was this morning and was normal. She denies f/c, MOREAU, back pain, hematuria, dysuria. - Current Medication List Current Medications: Active Medications Albuterol/Ipratropium (Duoneb -) 1 amp NEB Q6H PRN PRN Reason: SHORTNESS OF BREATH Last Admin: 07/30/17 07:40 Dose: 1 amp Clopidogrel Bisulfate (Plavix -) 75 mg PO DAILY [facility] Last Admin: 07/30/17 08:59 Dose: 75 mg Enoxaparin Sodium (Lovenox -) 40 mg SQ DAILY [facility] Last Admin: 07/30/17 09:08 Dose: Not Given Furosemide (Lasix Injection -) 40 mg IVPUSH BID@0600,1400 [facility] Last Admin: 07/30/17 06:41 Dose: 40 mg Insulin Aspart (Novolog Vial Sliding Scale -) 1 vial SQ ACHS [facility] PRN Reason: Protocol Last Admin: 07/30/17 06:41 Dose: Not Given Levothyroxine Sodium (Synthroid -) 75 mcg PO DAILY@0700 [facility] Last Admin: 07/30/17 06:41 Dose: 75 mcg Metoprolol Succinate (Toprol Xl -) 100 mg PO DAILY [facility] Last Admin: 07/30/17 08:59 Dose: 100 mg Nicotine (Nicoderm Patch -) 21 mg TD DAILY [facility] Last Admin: 07/30/17 09:08 Dose: Not Given Spironolactone (Aldactone -) 50 mg PO DAILY [facility] Last Admin: 07/30/17 08:59 Dose: 50 mg - Objective Vital Signs: Vital Signs Temperature 97.3 F L 07/30/17 10:00 Pulse Rate 64 07/30/17 10:00 Respiratory Rate 22 07/30/17 10:00 Blood Pressure 119/66 07/30/17 10:00 O2 Sat by Pulse Oximetry (%) 97 07/30/17 08:54 Eyes: Yes: WNL, Conjunctiva Clear, EOM Intact HENT: Yes: WNL, Atraumatic, Normocephalic Neck: Yes: WNL, Supple, Trachea Midline Cardiovascular: Yes: WNL, Regular Rate and Rhythm Respiratory: Yes: WNL, Regular, Rales Gastrointestinal: Yes: WNL, Normal Bowel Sounds Genitourinary: Yes: WNL Musculoskeletal: Yes: WNL Extremities: Yes: WNL Edema: Yes Integumentary: Yes: WNL Neurological: Yes: WNL, Alert, Oriented ...Motor Strength: WNL Psychiatric: Yes: WNL Labs: CBC, BMP 07/30/17 06:05 07/30/17 06:05 INR, PTT INR 1.72 (0.82-1.09) H 07/27/17 08:50 Problem List - Problems (1) Anasarca Code(s): R60.1 - GENERALIZED EDEMA (2) CHF exacerbation Code(s): I50.9 - HEART FAILURE, UNSPECIFIED Qualifiers: Heart failure type: unspecified Qualified Code(s): I50.9 - Heart failure, unspecified (3) Hypokalemia Code(s): E87.6 - HYPOKALEMIA (4) Shortness of breath Code(s): R06.02 - SHORTNESS OF BREATH (5) LIANNA (acute kidney injury) Code(s): N17.9 - ACUTE KIDNEY FAILURE, UNSPECIFIED (6) Bacteremia Code(s): R78.81 - BACTEREMIA (7) Chest pain of uncertain etiology Code(s): R07.89 - OTHER CHEST PAIN (8) Sepsis Code(s): A41.9 - SEPSIS, UNSPECIFIED ORGANISM (9) Abdominal pain Code(s): R10.9 - UNSPECIFIED ABDOMINAL PAIN Qualifiers: Abdominal location: lower abdomen, unspecified Qualified Code(s): R10.30 - Lower abdominal pain, unspecified (10) Acute combined systolic and diastolic ACC/AHA stage C congestive heart failure Code(s): I50.41 - ACUTE COMBINED SYSTOLIC AND DIASTOLIC (CONGESTIVE) HRT FAIL (11) Acute on chronic systolic and diastolic heart failure, NYHA class 1 Code(s): I50.43 - ACUTE ON CHRONIC COMBINED SYSTOLIC AND DIASTOLIC HRT FAIL (12) CHF (congestive heart failure) Code(s): I50.9 - HEART FAILURE, UNSPECIFIED (13) Chest pain Code(s): R07.9 - CHEST PAIN, UNSPECIFIED Qualifiers: Chest pain type: unspecified Qualified Code(s): R07.9 - Chest pain, unspecified (14) Chronic systolic congestive heart failure Code(s): I50.22 - CHRONIC SYSTOLIC (CONGESTIVE) HEART FAILURE (15) Cigarette nicotine dependence Code(s): F17.210 - NICOTINE DEPENDENCE, CIGARETTES, UNCOMPLICATED (16) Coronary artery disease Code(s): I25.10 - ATHSCL HEART DISEASE OF [place] CORONARY ARTERY W/O ANG PCTRS (17) Depression Code(s): F32.9 - MAJOR DEPRESSIVE DISORDER, SINGLE EPISODE, UNSPECIFIED (18) Diabetes Code(s): E11.9 - TYPE 2 DIABETES MELLITUS WITHOUT COMPLICATIONS Qualifiers: Diabetes mellitus type: type 2 Diabetes mellitus rn long term care insulin use: with correction use Diabetes mellitus complication status: with unspecified complications Qualified Code(s): E11.8 - Type 2 diabetes mellitus with unspecified complications (19) Dyspepsia Code(s): K30 - FUNCTIONAL DYSPEPSIA (20) Elevated liver function tests Code(s): R94.5 - ABNORMAL RESULTS OF LIVER FUNCTION STUDIES (21) Elevated troponin Code(s): R74.8 - ABNORMAL LEVELS OF OTHER SERUM ENZYMES (22) Fatty liver Code(s): K76.0 - FATTY (CHANGE OF) LIVER, NOT ELSEWHERE CLASSIFIED (23) Hyperbilirubinemia Code(s): E80.6 - OTHER DISORDERS OF BILIRUBIN METABOLISM (24) Hyperlipidemia Code(s): E78.5 - HYPERLIPIDEMIA, UNSPECIFIED (25) Hypertension Code(s): I10 - ESSENTIAL (PRIMARY) HYPERTENSION (26) Hypothyroidism Code(s): E03.9 - HYPOTHYROIDISM, UNSPECIFIED (27) ICD (implantable cardioverter-defibrillator) in place Code(s): Z95.810 - PRESENCE OF AUTOMATIC (IMPLANTABLE) CARDIAC DEFIBRILLATOR (28) Lower extremity edema Code(s): R60.0 - LOCALIZED EDEMA (29) NSVT (nonsustained ventricular tachycardia) Code(s): I47.2 - VENTRICULAR TACHYCARDIA (30) Noncompliance with medication regimen Code(s): Z91.14 - PATIENT'S OTHER NONCOMPLIANCE WITH MEDICATION REGIMEN (31) Peripheral neuropathy Code(s): G62.9 - POLYNEUROPATHY, UNSPECIFIED Qualifiers: Peripheral neuropathy type: polyneuropathy, unspecified Qualified Code(s): G62.9 - Polyneuropathy, unspecified (33) Sleep apnea Code(s): G47.30 - SLEEP APNEA, UNSPECIFIED (34) Sphincter of Oddi dysfunction Code(s): K83.4 - SPASM OF SPHINCTER OF ODDI (35) Status post THR (total hip replacement) Code(s): Z96.649 - PRESENCE OF UNSPECIFIED ARTIFICIAL HIP JOINT (36) Tobacco use disorder Code(s): Z72.0 - TOBACCO USE (37) Transaminitis Code(s): R74.0 - NONSPEC ELEV OF LEVELS OF TRANSAMNS & LACTIC ACID DEHYDRGNSE (38) Cardiac cirrhosis Code(s): K76.1 - CHRONIC PASSIVE CONGESTION OF LIVER Assessment/Plan HTN, HLD, DM, CAD s/p MT 2003, CABG in 2003 s/p stents2, Systolic CHF s/p ICD/ Pacemaker, COPD, current smoker, hypothyroid & peripheral neuropathy, chronic abdominal pain (thought to be due to liver cirrhosis/biliary tree strictures s/ p lap naomi for acalcalous cholecystitis 05/05) presented to the ED with sob and s/p fall last night Plan telemetry IV lasix supplement K
--- NOTE | 2017-07-30 13:00 | PN ---
Progress Note, Physician History of Present Illness: pulmonary alert,sitting up on bed ,feeling bettet,less dyspneic - Current Medication List Current Medications: Active Medications Albuterol/Ipratropium (Duoneb -) 1 amp NEB Q6H PRN PRN Reason: SHORTNESS OF BREATH Last Admin: 07/30/17 07:40 Dose: 1 amp Clopidogrel Bisulfate (Plavix -) 75 mg PO DAILY [facility] Last Admin: 07/30/17 08:59 Dose: 75 mg Enoxaparin Sodium (Lovenox -) 40 mg SQ DAILY [facility] Last Admin: 07/30/17 09:08 Dose: Not Given Furosemide (Lasix Injection -) 40 mg IVPUSH BID@0600,1400 [facility] Last Admin: 07/30/17 06:41 Dose: 40 mg Insulin Aspart (Novolog Vial Sliding Scale -) 1 vial SQ ACHS [facility] PRN Reason: Protocol Last Admin: 07/30/17 12:13 Dose: Not Given Levothyroxine Sodium (Synthroid -) 75 mcg PO DAILY@0700 [facility] Last Admin: 07/30/17 06:41 Dose: 75 mcg Metoprolol Succinate (Toprol Xl -) 100 mg PO DAILY [facility] Last Admin: 07/30/17 08:59 Dose: 100 mg Nicotine (Nicoderm Patch -) 21 mg TD DAILY [facility] Last Admin: 07/30/17 09:08 Dose: Not Given Spironolactone (Aldactone -) 50 mg PO DAILY [facility] Last Admin: 07/30/17 08:59 Dose: 50 mg - Objective Vital Signs: Vital Signs Temperature 97.3 F L 07/30/17 10:00 Pulse Rate 64 07/30/17 10:00 Respiratory Rate 22 07/30/17 10:00 Blood Pressure 119/66 07/30/17 10:00 O2 Sat by Pulse Oximetry (%) 97 07/30/17 08:54 Constitutional: Yes: Well Nourished, Calm Eyes: Yes: WNL HENT: Yes: WNL Neck: Yes: WNL Cardiovascular: Yes: Regular Rate and Rhythm, S1, S2 Respiratory: Yes: Rales, Wheezes (bibasialar rales,scatttered gema wheezes) Gastrointestinal: Yes: Normal Bowel Sounds, Soft Extremities: Yes: WNL Edema: Yes Labs: CBC, BMP 07/30/17 06:05 07/30/17 06:05 INR, PTT INR 1.72 (0.82-1.09) H 07/27/17 08:50 Problem List - Problems (1) Acute on chronic systolic and diastolic heart failure, NYHA class 3 Code(s): I50.43 - ACUTE ON CHRONIC COMBINED SYSTOLIC AND DIASTOLIC HRT FAIL (2) Anasarca Code(s): R60.1 - GENERALIZED EDEMA (3) CHF exacerbation Code(s): I50.9 - HEART FAILURE, UNSPECIFIED Qualifiers: Heart failure type: unspecified Qualified Code(s): I50.9 - Heart failure, unspecified (4) Hypokalemia Code(s): E87.6 - HYPOKALEMIA (5) Shortness of breath Code(s): R06.02 - SHORTNESS OF BREATH (6) Abdominal pain Code(s): R10.9 - UNSPECIFIED ABDOMINAL PAIN Qualifiers: Abdominal location: lower abdomen, unspecified Qualified Code(s): R10.30 - Lower abdominal pain, unspecified (7) Cigarette nicotine dependence Code(s): F17.210 - NICOTINE DEPENDENCE, CIGARETTES, UNCOMPLICATED (8) Hypertension Code(s): I10 - ESSENTIAL (PRIMARY) HYPERTENSION (9) Hypothyroidism Code(s): E03.9 - HYPOTHYROIDISM, UNSPECIFIED (10) ICD (implantable cardioverter-defibrillator) in place Code(s): Z95.810 - PRESENCE OF AUTOMATIC (IMPLANTABLE) CARDIAC DEFIBRILLATOR (11) Tobacco use disorder Code(s): Z72.0 - TOBACCO USE (12) COPD (chronic obstructive pulmonary disease) Code(s): J44.9 - CHRONIC OBSTRUCTIVE PULMONARY DISEASE, UNSPECIFIED Assessment/Plan IMP ACUTE ON CHRONIC SYSTOLIC CHF SEVERE LV DYSFUNCTION S/P ICD/PPM ASHD S/P OR ,S/P CABG,STENTS COPD HTN HLD ABD PAIN CHRONIC TOBACCO ABUSE PLAN IV LASIX O2 ALDACTONE INHALED BRONCHODILATORS DAILY WTS MONITOR LYTES REPLETE K MEDROL X [address] CLEMENS Problem List - Problems (1) Acute on chronic systolic and diastolic heart failure, NYHA class 3 Code(s): I50.43 - ACUTE ON CHRONIC COMBINED SYSTOLIC AND DIASTOLIC HRT FAIL (2) Anasarca Code(s): R60.1 - GENERALIZED EDEMA (3) CHF exacerbation Code(s): I50.9 - HEART FAILURE, UNSPECIFIED Qualifiers: Heart failure type: unspecified Qualified Code(s): I50.9 - Heart failure, unspecified (4) Hypokalemia Code(s): E87.6 - HYPOKALEMIA (5) Shortness of breath Code(s): R06.02 - SHORTNESS OF BREATH (6) Abdominal pain Code(s): R10.9 - UNSPECIFIED ABDOMINAL PAIN Qualifiers: Abdominal location: lower abdomen, unspecified Qualified Code(s): R10.30 - Lower abdominal pain, unspecified (7) Cigarette nicotine dependence Code(s): F17.210 - NICOTINE DEPENDENCE, CIGARETTES, UNCOMPLICATED (8) Hypertension Code(s): I10 - ESSENTIAL (PRIMARY) HYPERTENSION (9) Hypothyroidism Code(s): E03.9 - HYPOTHYROIDISM, UNSPECIFIED (10) ICD (implantable cardioverter-defibrillator) in place Code(s): Z95.810 - PRESENCE OF AUTOMATIC (IMPLANTABLE) CARDIAC DEFIBRILLATOR (11) Tobacco use disorder Code(s): Z72.0 - TOBACCO USE (12) COPD (chronic obstructive pulmonary disease) Code(s): J44.9 - CHRONIC OBSTRUCTIVE PULMONARY DISEASE, UNSPECIFIED
[2017-07-30] MEDS: methylPREDNISolone NA SUCC 40 MG/1 ML VIAL IVPUSH SCH ×2 (14:58→18:38)
--- NOTE | 2017-07-30 16:44 | PN ---
Physical Exam: SUBJECTIVE: Patient seen and examined at the bedside. Sitting up, in no acute distress. Slightly irritated, wants to be left alone. OBJECTIVE: Solumedrol started by Pulmonary for course lung sounds K+ repleted Vital Signs Period Temp Pulse Resp BP Sys/Santoro Pulse Ox Last 24 Hr 97.3 F-98.3 F 60-76 20-22 103-128/50-69 97-98 GENERAL: The patient is awake, alert, and fully oriented, HEAD: Normal with no signs of trauma, left eye lid mildy swollen EYES: PERRL, extraocular movements intact, sclera anicteric, conjunctiva clear. No ptosis. ENT: Ears normal, nares patent, oropharynx clear without exudates, moist mucous membranes. NECK: Trachea midline, full range of motion, supple. LUNGS: Course lungs sounds bilaterally HEART: paced 80s ABDOMEN: mildly distended, + bowel sounds, ascites seen on CT EXTREMITIES: bilateral lower ext with non pitting edema NEUROLOGICAL: conversational dyspnea, on supplemental oxygen PSYCH: Normal mood, normal affect. SKIN: Warm, dry, normal turgor, no rashes or lesions noted Laboratory Results - last 24 hr 07/29/17 07/29/17 07/30/17 17:13 21:03 06:05 WBC 5.8 D RBC 4.06 Hgb 11.5 Hct 35.0 MCV 86.2 MCH 28.4 MCHC 33.0 RDW 17.0 H Plt Count 142 MPV 8.3 Neutrophils % 63.0 Lymphocytes % 21.1 D Monocytes % 15.6 H Eosinophils % 0.0 Basophils % 0.3 Sodium Potassium Chloride Carbon Dioxide Anion Gap BUN Creatinine Creat Clearance w eGFR POC Glucometer 135 133 Random Glucose Calcium Magnesium Total Bilirubin AST ALT Alkaline Phosphatase Total Protein Albumin 07/30/17 07/30/17 07/30/17 06:05 06:34 12:12 WBC RBC Hgb Hct MCV MCH MCHC RDW Plt Count MPV Neutrophils % Lymphocytes % Monocytes % Eosinophils % Basophils % Sodium 140 Potassium 3.2 L Chloride 102 Carbon Dioxide 31 Anion Gap 7 L BUN 17 Creatinine 0.8 Creat Clearance w eGFR > 60 POC Glucometer 79 126 Random Glucose 69 L Calcium 7.9 L Magnesium 1.8 Total Bilirubin 3.0 H AST 37 ALT 16 Alkaline Phosphatase 135 H Total Protein 7.4 Albumin 3.1 L Active Medications Generic Name Dose Route Start Last Admin Trade Name Freq PRN Reason Stop Dose Admin Albuterol/Ipratropium 1 amp 07/27/17 16:35 07/30/17 07:40 Duoneb - NEB 1 amp Q6H PRN Administration SHORTNESS OF BREATH Clopidogrel Bisulfate 75 mg 07/28/17 10:00 07/30/17 08:59 Plavix - PO 75 mg DAILY [facility] Administration Enoxaparin Sodium 40 mg 07/28/17 10:00 07/30/17 09:08 Lovenox - SQ Not Given DAILY [facility] Furosemide 40 mg 07/28/17 06:00 07/30/17 14:58 Lasix Injection - IVPUSH 40 mg BID@0600,1400 [facility] Administration Insulin Aspart 1 vial 07/27/17 16:30 07/30/17 12:13 Novolog Vial Sliding Scale - SQ Not Given ACHS [facility] Protocol Levothyroxine Sodium 75 mcg 07/28/17 07:00 07/30/17 06:41 Synthroid - PO 75 mcg DAILY@0700 [facility] Administration Methylprednisolone Sodium Succinate 40 mg 07/30/17 13:15 07/30/17 14:58 Solu-Medrol - IVPUSH 40 mg Q8H-IV [facility] Administration Metoprolol Succinate 100 mg 07/28/17 10:00 07/30/17 08:59 Toprol Xl - PO 100 mg DAILY [facility] Administration Nicotine 21 mg 07/29/17 11:00 07/30/17 09:08 Nicoderm Patch - TD Not Given DAILY [facility] Spironolactone 50 mg 07/28/17 10:00 07/30/17 08:59 Aldactone - PO 50 mg DAILY [facility] Administration ASSESSMENT/PLAN: Patient is a 62 year old female with a significant past medical history of hyperbilirubinemia, hypertension, hyperlipidemia, diabetes, CABG in 2003 s/p stents 2, Systolic CHF s/p ICD/Pacemaker, COPD, current smoker, hypothyroidism , peripheral neuropathy, chronic abdominal pain (thought to be due to liver cirrhosis/biliary tree strictures s/p lap naomi for acalcalous cholecystitis ). She was admitted on 07/27/2017 with shortness of breath and a fall at home. Imaging: CT/Abdomen & Pelvis CT with contrast 07/27/2017: esenteric edema and subcutaneous edema again seen suggestive of anasarca. Interval small amt of free fluid ascites in the RUQ. Hepatomegaly. Status post cholecystectomy surgical metallic clips seen with small amt of fluid in the gallbladder fossa Normal size common hepatic duct. Chest xray 07/27/2017: noted vascular congestive changes. Head CT 07/27/2017: negative Echo 07/26/2017: severely dilated LV, LV hypertrophy, LA mod. dilated, moderate pulmonic valve regurg., mod to severe mitral regurg. Cardiology Systolic Heart failure, acute on chronic Lasix 40mg IV BID with monitoring of daily weights Echo reviewed, EF 25% Metoprolol 100mg PO daily, Aldactone 50 mg daily Monitor respiratory status, pre and post prior to d/c CAD s/p stents/CABG On Plavix 75 mg daily Hypertension, chronic Monitor BP Hypothyroid On Synthroid 75 mcg Pulmonary Shortness of breath COPD Not home oxygen dependent Lungs with congestion bilaterally Solumedrol x 24 hours as per pulmonary Monitor oxygen saturations with a goal of 90% or better on room air Psyche: Tobacco dependence Nicotine patch, smoking cessation Pulmonary following Endocrine Diabetes, chronic Novolog, BGMs F.E.N. Fluids: none/PO adequate Electrolyes: low K, repleted/on Aldactone Nutrition: low sodium Prophylaxis: Lovenox 40mg daily Disposition: full code.
[2017-07-31] MEDS: methylPREDNISolone NA SUCC 40 MG/1 ML VIAL IVPUSH SCH ×3 (02:45→22:20)
[2017-07-31] MEDS: ALBUTEROL SO4 2.5/IPRATROPIUM 0.5 INH SOL 3 ML VIAL.NEB. NEB PRN ×2 (06:10→10:50)
[2017-07-31] MEDS: LEVOTHYROXINE NA 75 MCG TABLET (FP) PO SCH (06:25)
[2017-07-31] MEDS: INSULIN SLIDING SCALE (NOVOLOG) 1 VIAL SQ SCH ×4 (06:27→22:21)
[2017-07-31] MEDS: FUROSEMIDE 40 MG/4 ML INJECTABLE VIAL IVPUSH SCH ×2 (06:35→16:16)
[2017-07-31 09:43] LABS: HEMOGLOBIN 12.1 GM/dL (10.7-15.3); LYMPH % 9.9 % (8-40); MCH 27.6 pg (25.7-33.7); MCHC 31.8 g/dl (32.0-36.0); MEAN CELL VOLUME 86.9 fl (80-96); MEAN PLT VOLUME 8.6 fl (7.5-11.1); MONO % 7.8 % (3.8-10.2); NEUT % 82.3 % (42.8-82.8); PLATELET COUNT 165 K/MM3 (134-434); RBC 4.37 M/mm3 (3.60-5.2); RDW 16.9 % (11.6-15.6); WHITE BLOOD COUNT 7.1 K/mm3 (4.0-10.0)
[2017-07-31 10:08] LABS: ALBUMIN 3.2 g/dl (3.4-5.0); ANION GAP 11 (8-16); BLOOD UREA NITROGEN 21 mg/dL (7-18); CALCIUM 7.9 mg/dL (8.5-10.1); CHLORIDE 99 mmol/L (98-107); CO2 29 mmol/L (21-32); CREATININE 0.8 mg/dL (0.55-1.02); GLUCOSE,RANDOM 186 mg/dL (74-106); MAGNESIUM 1.8 mg/dL (1.8-2.4); POTASSIUM 3.6 mmol/L (3.5-5.1); SGOT/AST 33 U/L (15-37); SGPT/ALT 17 U/L (12-78); SODIUM 139 mmol/L (136-145)
[2017-07-31 10:10] LABS: ALK PHOS 142 U/L (45-117); BILIRUBIN,TOTAL 2.9 mg/dL (0.2-1.0); TOT PROT 7.7 g/dl (6.4-8.2)
[2017-07-31] MEDS: NICOTINE 21 MG/24 HOURS TOPICAL PATCH TD SCH (10:33)
[2017-07-31] MEDS: ENOXAPARIN NA (PORCINE) 40 MG/0.4 ML DISP.SYRIN SQ SCH (10:33)
--- NOTE | 2017-07-31 11:01 | PN ---
Progress Note, Physician History of Present Illness: PULMONARY ALERT,LAYING IN BED NAD - Current Medication List Current Medications: Active Medications Albuterol/Ipratropium (Duoneb -) 1 amp NEB Q6H PRN PRN Reason: SHORTNESS OF BREATH Last Admin: 07/31/17 06:10 Dose: 1 amp Clopidogrel Bisulfate (Plavix -) 75 mg PO DAILY [facility] Last Admin: 07/30/17 08:59 Dose: 75 mg Enoxaparin Sodium (Lovenox -) 40 mg SQ DAILY [facility] Last Admin: 07/31/17 10:33 Dose: Not Given Furosemide (Lasix Injection -) 40 mg IVPUSH BID@0600,1400 [facility] Last Admin: 07/31/17 06:35 Dose: 40 mg Insulin Aspart (Novolog Vial Sliding Scale -) 1 vial SQ ACHS [facility] PRN Reason: Protocol Last Admin: 07/31/17 06:27 Dose: 2 units Levothyroxine Sodium (Synthroid -) 75 mcg PO DAILY@0700 [facility] Last Admin: 07/31/17 06:25 Dose: 75 mcg Methylprednisolone Sodium Succinate (Solu-Medrol -) 40 mg IVPUSH Q8H-IV [facility] Last Admin: 07/31/17 02:45 Dose: 40 mg Metoprolol Succinate (Toprol Xl -) 100 mg PO DAILY [facility] Last Admin: 07/30/17 08:59 Dose: 100 mg Nicotine (Nicoderm Patch -) 21 mg TD DAILY [facility] Last Admin: 07/31/17 10:33 Dose: Not Given Spironolactone (Aldactone -) 50 mg PO DAILY [facility] Last Admin: 07/30/17 08:59 Dose: 50 mg - Objective Vital Signs: Vital Signs Temperature 97.4 F L 07/31/17 05:57 Pulse Rate 65 07/31/17 05:57 Respiratory Rate 20 07/31/17 05:57 Blood Pressure 141/71 07/31/17 05:57 O2 Sat by Pulse Oximetry (%) 91 L 07/30/17 21:00 Constitutional: Yes: Well Nourished, Calm Eyes: Yes: WNL HENT: Yes: WNL Neck: Yes: WNL Cardiovascular: Yes: Regular Rate and Rhythm, S1, S2 Respiratory: Yes: Rhonchi (JESSIKA RHONCHI) Gastrointestinal: Yes: Normal Bowel Sounds, Soft Extremities: Yes: WNL Edema: Yes Labs: CBC, BMP 07/31/17 09:17 07/31/17 09:17 INR, PTT INR 1.72 (0.82-1.09) H 07/27/17 08:50 - ....Imaging Chest X-ray: Image Reviewed (+ CONGESTION) Problem List - Problems (1) Acute on chronic systolic and diastolic heart failure, NYHA class 3 Code(s): I50.43 - ACUTE ON CHRONIC COMBINED SYSTOLIC AND DIASTOLIC HRT FAIL (2) Anasarca Code(s): R60.1 - GENERALIZED EDEMA (3) CHF exacerbation Code(s): I50.9 - HEART FAILURE, UNSPECIFIED Qualifiers: Heart failure type: unspecified Qualified Code(s): I50.9 - Heart failure, unspecified (4) Hypokalemia Code(s): E87.6 - HYPOKALEMIA (5) Shortness of breath Code(s): R06.02 - SHORTNESS OF BREATH (6) Abdominal pain Code(s): R10.9 - UNSPECIFIED ABDOMINAL PAIN Qualifiers: Abdominal location: lower abdomen, unspecified Qualified Code(s): R10.30 - Lower abdominal pain, unspecified (7) Cigarette nicotine dependence Code(s): F17.210 - NICOTINE DEPENDENCE, CIGARETTES, UNCOMPLICATED (8) Hypertension Code(s): I10 - ESSENTIAL (PRIMARY) HYPERTENSION (9) Hypothyroidism Code(s): E03.9 - HYPOTHYROIDISM, UNSPECIFIED (10) ICD (implantable cardioverter-defibrillator) in place Code(s): Z95.810 - PRESENCE OF AUTOMATIC (IMPLANTABLE) CARDIAC DEFIBRILLATOR (11) Tobacco use disorder Code(s): Z72.0 - TOBACCO USE (12) COPD (chronic obstructive pulmonary disease) Code(s): J44.9 - CHRONIC OBSTRUCTIVE PULMONARY DISEASE, UNSPECIFIED Assessment/Plan IMP ACUTE ON CHRONIC SYSTOLIC CHF SEVERE LV DYSFUNCTION S/P ICD/PPM ASHD S/P ME ,S/P CABG,STENTS COPD HTN HLD ABD PAIN CHRONIC TOBACCO ABUSE PLAN IV LASIX O2 ALDACTONE INHALED BRONCHODILATORS DAILY WTS MONITOR LYTES REPLETE K CONTINUE MEDROL DR CLEMENS Problem List - Problems (1) Acute on chronic systolic and diastolic heart failure, NYHA class 3 Code(s): I50.43 - ACUTE ON CHRONIC COMBINED SYSTOLIC AND DIASTOLIC HRT FAIL (2) Anasarca Code(s): R60.1 - GENERALIZED EDEMA (3) CHF exacerbation Code(s): I50.9 - HEART FAILURE, UNSPECIFIED Qualifiers: Heart failure type: unspecified Qualified Code(s): I50.9 - Heart failure, unspecified (4) Hypokalemia Code(s): E87.6 - HYPOKALEMIA (5) Shortness of breath Code(s): R06.02 - SHORTNESS OF BREATH (6) Abdominal pain Code(s): R10.9 - UNSPECIFIED ABDOMINAL PAIN Qualifiers: Abdominal location: lower abdomen, unspecified Qualified Code(s): R10.30 - Lower abdominal pain, unspecified (7) Cigarette nicotine dependence Code(s): F17.210 - NICOTINE DEPENDENCE, CIGARETTES, UNCOMPLICATED (8) Hypertension Code(s): I10 - ESSENTIAL (PRIMARY) HYPERTENSION (9) Hypothyroidism Code(s): E03.9 - HYPOTHYROIDISM, UNSPECIFIED (10) ICD (implantable cardioverter-defibrillator) in place Code(s): Z95.810 - PRESENCE OF AUTOMATIC (IMPLANTABLE) CARDIAC DEFIBRILLATOR (11) Tobacco use disorder Code(s): Z72.0 - TOBACCO USE (12) COPD (chronic obstructive pulmonary disease) Code(s): J44.9 - CHRONIC OBSTRUCTIVE PULMONARY DISEASE, UNSPECIFIED
[2017-07-31] MEDS: SPIRONOLACTONE 25 MG TABLET (FP) PO SCH (11:24)
[2017-07-31] MEDS: CLOPIDOGREL BISULFATE 75 MG TABLET (FP) PO SCH (11:24)
--- NOTE | 2017-07-31 12:04 | PN ---
Progress Note, Physician Chief Complaint: Pt A&Ox3; no chest pain; dyspneic on mild exertion History of Present Illness: 62 y/o black female with PMH HTN, HLD, DM, CAD status post MS 2003, CABG in 2003 with stents, systolic CHF s/p ICD pacemaker, COPD current smoker, hypothyroid BIB EMS for SOB and fall last night. HISTORY OF PRESENT ILLNESS: The patient's grandson is with her and states she called him last night and told him that she fell on the floor and hit her head. Grandson is not sure if she lost consciousness. She is complaining of worsening SOB. Her grandson states she's been short of breath for 2 weeks. She states she threw up once last night. Last BM was this morning and was normal. She denies f/c, [place], back pain, hematuria, dysuria. Vital signs on arrival are notable for O2 sat of 95% on RA. - Current Medication List Current Medications: Active Medications Albuterol/Ipratropium (Duoneb -) 1 amp NEB Q6H PRN PRN Reason: SHORTNESS OF BREATH Last Admin: 07/31/17 06:10 Dose: 1 amp Clopidogrel Bisulfate (Plavix -) 75 mg PO DAILY [facility] Last Admin: 07/31/17 11:24 Dose: 75 mg Enoxaparin Sodium (Lovenox -) 40 mg SQ DAILY [facility] Last Admin: 07/31/17 10:33 Dose: Not Given Furosemide (Lasix Injection -) 40 mg IVPUSH BID@0600,1400 [facility] Last Admin: 07/31/17 06:35 Dose: 40 mg Insulin Aspart (Novolog Vial Sliding Scale -) 1 vial SQ ACHS [facility] PRN Reason: Protocol Last Admin: 07/31/17 06:27 Dose: 2 units Levothyroxine Sodium (Synthroid -) 75 mcg PO DAILY@0700 [facility] Last Admin: 07/31/17 06:25 Dose: 75 mcg Methylprednisolone Sodium Succinate (Solu-Medrol -) 40 mg IVPUSH Q8H-IV [facility] Last Admin: 07/31/17 11:24 Dose: 40 mg Metoprolol Succinate (Toprol Xl -) 100 mg PO DAILY [facility] Last Admin: 07/31/17 11:25 Dose: 100 mg Nicotine (Nicoderm Patch -) 21 mg TD DAILY [facility] Last Admin: 07/31/17 10:33 Dose: Not Given Spironolactone (Aldactone -) 50 mg PO DAILY [facility] Last Admin: 07/31/17 11:24 Dose: 50 mg - Objective Vital Signs: Vital Signs Temperature 97.4 F L 07/31/17 05:57 Pulse Rate 65 07/31/17 05:57 Respiratory Rate 20 07/31/17 05:57 Blood Pressure 141/71 07/31/17 05:57 O2 Sat by Pulse Oximetry (%) 91 L 07/30/17 21:00 Constitutional: Yes: Calm Eyes: Yes: WNL HENT: Yes: WNL Neck: Yes: WNL Cardiovascular: Yes: Murmur (2/6 systolic murmur LSB-->axilla), S1, S2 (split) Gastrointestinal: Yes: Soft ...Rectal Exam: Yes: Deferred Genitourinary: No: Anuria Musculoskeletal: Yes: Muscle Weakness Extremities: Yes: Cool Edema: Yes Edema: LLE: 1+, RLE: 1+ Peripheral Pulses WNL: No Peripheral Pulses: Left Doralis Pedis: 1+, Right Dorsalis Pedis: 1+ Integumentary: Yes: Venous Stasis Changes Neurological: Yes: Alert, Oriented, Weakness Psychiatric: Yes: Other (anxiety/depression) Labs: CBC, BMP 07/31/17 09:17 07/31/17 09:17 INR, PTT INR 1.72 (0.82-1.09) H 07/27/17 08:50 Abnormal Lab Results 07/31/17 07/31/17 09:17 09:17 MCHC 31.8 L RDW 16.9 H BUN 21 H Random Glucose 186 H Calcium 7.9 L Total Bilirubin 2.9 H Alkaline Phosphatase 142 H Albumin 3.2 L - ....Imaging Chest X-ray: Image Reviewed (no acute changes; cardiomegaly) Ultrasound: Report Reviewed (ECHO: severely reduced LVEF; moderate CT; mod- severe MR) Problem List - Problems (1) AICD (automatic cardioverter/defibrillator) present Code(s): Z95.810 - PRESENCE OF AUTOMATIC (IMPLANTABLE) CARDIAC DEFIBRILLATOR (2) Acute on chronic systolic and diastolic heart failure, NYHA class 3 Assessment/Plan: Continue carvedilol and spironolactone. If not already on it, start ACEI (e.g. lisinopril 2.5 mg daily); pt has systolic CHF, DM, and HTN. BUN/Cr, daily weight, Is and Os, electrolytes. Code(s): I50.43 - ACUTE ON CHRONIC COMBINED SYSTOLIC AND DIASTOLIC HRT FAIL (3) Anasarca Code(s): R60.1 - GENERALIZED EDEMA (4) COPD (chronic obstructive pulmonary disease) Code(s): J44.9 - CHRONIC OBSTRUCTIVE PULMONARY DISEASE, UNSPECIFIED (5) Overweight Code(s): E66.3 - OVERWEIGHT (6) Anxiety and depression Code(s): F41.9 - ANXIETY DISORDER, UNSPECIFIED; F32.9 - MAJOR DEPRESSIVE DISORDER, SINGLE EPISODE, UNSPECIFIED (7) Cigarette nicotine dependence Assessment/Plan: on nicotine patch. Code(s): F17.210 - NICOTINE DEPENDENCE, CIGARETTES, UNCOMPLICATED (8) Status post THR (total hip replacement) Code(s): Z96.649 - PRESENCE OF UNSPECIFIED ARTIFICIAL HIP JOINT (9) Tobacco use disorder Code(s): Z72.0 - TOBACCO USE
--- NOTE | 2017-07-31 15:06 | PN ---
Physical Exam: SUBJECTIVE: Patient seen and examined at the bedside. OBJECTIVE: Vital Signs Period Temp Pulse Resp BP Sys/Santoro Pulse Ox Last 24 Hr 97.4 F-97.7 F 64-66 20-20 126-146/71-86 91 GENERAL: The patient is awake, alert, and fully oriented, in no acute distress. HEAD: Normal with no signs of trauma. EYES: PERRL, extraocular movements intact, sclera anicteric, conjunctiva clear. No ptosis. ENT: Ears normal, nares patent, oropharynx clear without exudates, moist mucous membranes. NECK: Trachea midline, full range of motion, supple. LUNGS: breath sounds with scattered rhonchi, no wheezing no accessory muscle use. Breath sounds improving with solumedrol. HEART: Regular rate and rhythm ABDOMEN: Soft, nontender, nondistended, normoactive bowel sounds, no guarding, no rebound, no hepatosplenomegaly, no masses. EXTREMITIES: 2+ pulses, warm, well-perfused, no edema. NEUROLOGICAL: Normal speech, gait not observed. PSYCH: Normal mood, normal affect. SKIN: Warm, dry, normal turgor, no rashes or lesions noted Laboratory Results - last 24 hr 07/30/17 07/30/17 07/31/17 17:37 21:17 06:08 WBC RBC Hgb Hct MCV MCH MCHC RDW Plt Count MPV Neutrophils % Lymphocytes % Monocytes % Eosinophils % Basophils % Sodium Potassium Chloride Carbon Dioxide Anion Gap BUN Creatinine Creat Clearance w eGFR POC Glucometer 139 207 158 Random Glucose Calcium Magnesium Total Bilirubin AST ALT Alkaline Phosphatase Total Protein Albumin 07/31/17 07/31/17 07/31/17 09:17 09:17 12:04 WBC 7.1 RBC 4.37 Hgb 12.1 Hct 38.0 MCV 86.9 MCH 27.6 MCHC 31.8 L RDW 16.9 H Plt Count 165 MPV 8.6 Neutrophils % 82.3 D Lymphocytes % 9.9 D Monocytes % 7.8 Eosinophils % 0.0 Basophils % 0.0 Sodium 139 Potassium 3.6 Chloride 99 Carbon Dioxide 29 Anion Gap 11 BUN 21 H Creatinine 0.8 Creat Clearance w eGFR > 60 POC Glucometer 244 Random Glucose 186 H Calcium 7.9 L Magnesium 1.8 Total Bilirubin 2.9 H AST 33 ALT 17 Alkaline Phosphatase 142 H Total Protein 7.7 Albumin 3.2 L Active Medications Generic Name Dose Route Start Last Admin Trade Name Freq PRN Reason Stop Dose Admin Albuterol/Ipratropium 1 amp 07/27/17 16:35 07/31/17 10:50 Duoneb - NEB 1 amp Q6H PRN Administration SHORTNESS OF BREATH Clopidogrel Bisulfate 75 mg 07/28/17 10:00 07/31/17 11:24 Plavix - PO 75 mg DAILY [facility] Administration Enoxaparin Sodium 40 mg 07/28/17 10:00 07/31/17 10:33 Lovenox - SQ Not Given DAILY [facility] Furosemide 40 mg 07/28/17 06:00 07/31/17 06:35 Lasix Injection - IVPUSH 40 mg BID@0600,1400 [facility] Administration Insulin Aspart 1 vial 07/27/17 16:30 07/31/17 12:07 Novolog Vial Sliding Scale - SQ 4 units ACHS [facility] Administration Protocol Levothyroxine Sodium 75 mcg 07/28/17 07:00 07/31/17 06:25 Synthroid - PO 75 mcg DAILY@0700 [facility] Administration Methylprednisolone Sodium Succinate 40 mg 07/30/17 13:15 07/31/17 11:24 Solu-Medrol - IVPUSH 40 mg Q8H-IV [facility] Administration Metoprolol Succinate 100 mg 07/28/17 10:00 07/31/17 11:25 Toprol Xl - PO 100 mg DAILY [facility] Administration Nicotine 21 mg 07/29/17 11:00 07/31/17 10:33 Nicoderm Patch - TD Not Given DAILY [facility] Spironolactone 50 mg 07/28/17 10:00 07/31/17 11:24 Aldactone - PO 50 mg DAILY [facility] Administration ASSESSMENT/PLAN: Patient is a 62 year old female with a significant past medical history of hyperbilirubinemia, hypertension, hyperlipidemia, diabetes, CABG in 2003 s/p stents 2, Systolic CHF s/p ICD/Pacemaker, COPD, current smoker, hypothyroidism , peripheral neuropathy, chronic abdominal pain (thought to be due to liver cirrhosis/biliary tree strictures s/p lap naomi for acalcalous cholecystitis ). She was admitted on 07/27/2017 with shortness of breath and a fall at home. Imaging: CT/Abdomen & Pelvis CT with contrast 07/27/2017: esenteric edema and subcutaneous edema again seen suggestive of anasarca. Interval small amt of free fluid ascites in the RUQ. Hepatomegaly. Status post cholecystectomy surgical metallic clips seen with small amt of fluid in the gallbladder fossa Normal size common hepatic duct. Chest xray 07/27/2017: noted vascular congestive changes. Head CT 07/27/2017: negative Echo 07/26/2017: severely dilated LV, LV hypertrophy, LA mod. dilated, moderate pulmonic valve regurg., mod to severe mitral regurg. Cardiology Systolic Heart failure, acute on chronic Lasix 40mg IV BID with monitoring of daily weights Echo reviewed, EF 25% Metoprolol 100mg PO daily, Aldactone 50 mg daily Monitor respiratory status, pre and post prior to d/c CAD s/p stents/CABG On Plavix 75 mg daily Hypertension, chronic Monitor BP Hypothyroid On Synthroid 75 mcg Pulmonary Shortness of breath COPD Not home oxygen dependent Lungs with congestion bilaterally Solumedrol x 24 hours as per pulmonary Monitor oxygen saturations with a goal of 90% or better on room air Psyche: Tobacco dependence Nicotine patch, smoking cessation Pulmonary following Endocrine Diabetes, chronic Novolog, BGMs F.E.N. Fluids: none/PO adequate Electrolyes: low K, repleted/on Aldactone Nutrition: low sodium Prophylaxis: Lovenox 40mg daily Disposition: full code. Visit type - Emergency Visit Emergency Visit: Yes ED Registration Date: 07/27/17 Care time: The patient presented to the Emergency Department on the above date and was hospitalized for further evaluation of their emergent condition. - New Patient This patient is new to me today: No - Critical Care Critical Care patient: No - Discharge Referral Referred to [facility] Med P.C.: No
[2017-08-01] MEDS: FUROSEMIDE 40 MG/4 ML INJECTABLE VIAL IVPUSH SCH ×2 (06:18→13:48)
[2017-08-01] MEDS: INSULIN SLIDING SCALE (NOVOLOG) 1 VIAL SQ SCH ×4 (06:18→21:31)
[2017-08-01] MEDS: LEVOTHYROXINE NA 75 MCG TABLET (FP) PO SCH (06:19)
[2017-08-01] MEDS: SPIRONOLACTONE 25 MG TABLET (FP) PO SCH (09:36)
[2017-08-01] MEDS: CLOPIDOGREL BISULFATE 75 MG TABLET (FP) PO SCH (09:36)
[2017-08-01] MEDS: ENOXAPARIN NA (PORCINE) 40 MG/0.4 ML DISP.SYRIN SQ SCH (09:38)
[2017-08-01] MEDS: NICOTINE 21 MG/24 HOURS TOPICAL PATCH TD SCH (09:38)
[2017-08-01 10:06] LABS: ALBUMIN 2.9 g/dl (3.4-5.0); ANION GAP 11 (8-16); BLOOD UREA NITROGEN 23 mg/dL (7-18); CALCIUM 8.2 mg/dL (8.5-10.1); CHLORIDE 98 mmol/L (98-107); CO2 31 mmol/L (21-32); GLUCOSE,RANDOM 168 mg/dL (74-106); MAGNESIUM 2.2 mg/dL (1.8-2.4); POTASSIUM 3.4 mmol/L (3.5-5.1); SODIUM 140 mmol/L (136-145)
[2017-08-01 10:12] LABS: ALK PHOS 142 U/L (45-117); BILIRUBIN,TOTAL 2.3 mg/dL (0.2-1.0); CREATININE 0.8 mg/dL (0.55-1.02); SGOT/AST 25 U/L (15-37); SGPT/ALT 16 U/L (12-78); TOT PROT 7.4 g/dl (6.4-8.2)
[2017-08-01] MEDS: methylPREDNISolone NA SUCC 40 MG/1 ML VIAL IVPUSH SCH (10:21)
--- NOTE | 2017-08-01 11:29 | PN ---
Progress Note, Physician History of Present Illness: pulmonary alert,feeling better less dyspnic,sitting up on bed - Current Medication List Current Medications: Active Medications Albuterol/Ipratropium (Duoneb -) 1 amp NEB Q6H PRN PRN Reason: SHORTNESS OF BREATH Last Admin: 07/31/17 10:50 Dose: 1 amp Clopidogrel Bisulfate (Plavix -) 75 mg PO DAILY [facility] Last Admin: 08/01/17 09:36 Dose: 75 mg Enoxaparin Sodium (Lovenox -) 40 mg SQ DAILY [facility] Last Admin: 08/01/17 09:38 Dose: Not Given Furosemide (Lasix Injection -) 40 mg IVPUSH BID@0600,1400 [facility] Last Admin: 08/01/17 06:18 Dose: 40 mg Insulin Aspart (Novolog Vial Sliding Scale -) 1 vial SQ ACHS [facility] PRN Reason: Protocol Last Admin: 08/01/17 06:18 Dose: 2 units Levothyroxine Sodium (Synthroid -) 75 mcg PO DAILY@0700 [facility] Last Admin: 08/01/17 06:19 Dose: 75 mcg Methylprednisolone Sodium Succinate (Solu-Medrol -) 40 mg IVPUSH BID [facility] Last Admin: 08/01/17 10:21 Dose: 40 mg Metoprolol Succinate (Toprol Xl -) 100 mg PO DAILY [facility] Last Admin: 08/01/17 09:36 Dose: 100 mg Nicotine (Nicoderm Patch -) 21 mg TD DAILY [facility] Last Admin: 08/01/17 09:38 Dose: Not Given Spironolactone (Aldactone -) 50 mg PO DAILY [facility] Last Admin: 08/01/17 09:36 Dose: 50 mg - Objective Vital Signs: Vital Signs Temperature 97.3 F L 08/01/17 06:00 Pulse Rate 63 08/01/17 06:00 Respiratory Rate 20 08/01/17 06:00 Blood Pressure 115/69 08/01/17 06:00 O2 Sat by Pulse Oximetry (%) 97 07/31/17 21:00 Constitutional: Yes: Well Nourished, Calm Eyes: Yes: WNL HENT: Yes: WNL Neck: Yes: WNL Cardiovascular: Yes: Pulse Irregular, S1, S2 Respiratory: Yes: Rhonchi (less rhonchi bilaterally) Gastrointestinal: Yes: Normal Bowel Sounds, Soft Extremities: Yes: WNL Edema: Yes Labs: CBC, BMP 08/01/17 09:20 INR, PTT INR 1.72 (0.82-1.09) H 07/27/17 08:50 Problem List - Problems (1) Acute on chronic systolic and diastolic heart failure, NYHA class 3 Code(s): I50.43 - ACUTE ON CHRONIC COMBINED SYSTOLIC AND DIASTOLIC HRT FAIL (2) Anasarca Code(s): R60.1 - GENERALIZED EDEMA (3) CHF exacerbation Code(s): I50.9 - HEART FAILURE, UNSPECIFIED Qualifiers: Heart failure type: unspecified Qualified Code(s): I50.9 - Heart failure, unspecified (4) Hypokalemia Code(s): E87.6 - HYPOKALEMIA (5) Shortness of breath Code(s): R06.02 - SHORTNESS OF BREATH (6) Abdominal pain Code(s): R10.9 - UNSPECIFIED ABDOMINAL PAIN Qualifiers: Abdominal location: lower abdomen, unspecified Qualified Code(s): R10.30 - Lower abdominal pain, unspecified (7) Cigarette nicotine dependence Code(s): F17.210 - NICOTINE DEPENDENCE, CIGARETTES, UNCOMPLICATED (8) Hypertension Code(s): I10 - ESSENTIAL (PRIMARY) HYPERTENSION (9) Hypothyroidism Code(s): E03.9 - HYPOTHYROIDISM, UNSPECIFIED (10) ICD (implantable cardioverter-defibrillator) in place Code(s): Z95.810 - PRESENCE OF AUTOMATIC (IMPLANTABLE) CARDIAC DEFIBRILLATOR (11) Tobacco use disorder Code(s): Z72.0 - TOBACCO USE (12) COPD (chronic obstructive pulmonary disease) Code(s): J44.9 - CHRONIC OBSTRUCTIVE PULMONARY DISEASE, UNSPECIFIED Assessment/Plan IMP ACUTE ON CHRONIC SYSTOLIC CHF SEVERE LV DYSFUNCTION S/P ICD/PPM ASHD S/P [place] ,S/P CABG,STENTS COPD HTN HLD ABD PAIN CHRONIC TOBACCO ABUSE PLAN IV LASIX O2 ALDACTONE INHALED BRONCHODILATORS DAILY WTS MONITOR LYTES REPLETE K MEDROL [address] CLEMENS Problem List - Problems (1) Acute on chronic systolic and diastolic heart failure, NYHA class 3 Code(s): I50.43 - ACUTE ON CHRONIC COMBINED SYSTOLIC AND DIASTOLIC HRT FAIL (2) Anasarca Code(s): R60.1 - GENERALIZED EDEMA (3) CHF exacerbation Code(s): I50.9 - HEART FAILURE, UNSPECIFIED Qualifiers: Heart failure type: unspecified Qualified Code(s): I50.9 - Heart failure, unspecified (4) Hypokalemia Code(s): E87.6 - HYPOKALEMIA (5) Shortness of breath Code(s): R06.02 - SHORTNESS OF BREATH (6) Abdominal pain Code(s): R10.9 - UNSPECIFIED ABDOMINAL PAIN Qualifiers: Abdominal location: lower abdomen, unspecified Qualified Code(s): R10.30 - Lower abdominal pain, unspecified (7) Cigarette nicotine dependence Code(s): F17.210 - NICOTINE DEPENDENCE, CIGARETTES, UNCOMPLICATED (8) Hypertension Code(s): I10 - ESSENTIAL (PRIMARY) HYPERTENSION (9) Hypothyroidism Code(s): E03.9 - HYPOTHYROIDISM, UNSPECIFIED (10) ICD (implantable cardioverter-defibrillator) in place Code(s): Z95.810 - PRESENCE OF AUTOMATIC (IMPLANTABLE) CARDIAC DEFIBRILLATOR (11) Tobacco use disorder Code(s): Z72.0 - TOBACCO USE (12) COPD (chronic obstructive pulmonary disease) Code(s): J44.9 - CHRONIC OBSTRUCTIVE PULMONARY DISEASE, UNSPECIFIED
[2017-08-01 11:30] LABS: BASO % 0.1 % (0-2.0); HEMATOCRIT 35.7 % (32.4-45.2); HEMOGLOBIN 11.8 GM/dL (10.7-15.3); LYMPH % 6.2 % (8-40); MCH 28.7 pg (25.7-33.7); MCHC 33.2 g/dl (32.0-36.0); MEAN CELL VOLUME 86.6 fl (80-96); MEAN PLT VOLUME 8.5 fl (7.5-11.1); MONO % 11.4 % (3.8-10.2); NEUT % 82.3 % (42.8-82.8); PLATELET COUNT 164 K/MM3 (134-434); RBC 4.12 M/mm3 (3.60-5.2); RDW 16.8 % (11.6-15.6); WHITE BLOOD COUNT 10.1 K/mm3 (4.0-10.0)
--- NOTE | 2017-08-01 11:34 | PN ---
Progress Note, Physician History of Present Illness: his is a 62 year old female with hyperbilirubinemia, HTN, HLD, DM, CAD s/p AK 2003, CABG in 2003 s/p stents2, Systolic CHF s/p ICD/Pacemaker, COPD, current smoker, hypothyroid & peripheral neuropathy, chronic abdominal pain (thought to be due to liver cirrhosis/biliary tree strictures s/p lap naomi for acalcalous cholecystitis 05/05) presented to the ED with sob and s/p fall last night. The patient's grandson is with her and states she called him last night and told him that she fell on the floor and hit her head. Grandson is not sure if she lost consciousness. She is complaining of worsening SOB. Her grandson states she's been short of breath for 2 weeks. She states she threw up once last night. Last BM was this morning and was normal. She denies f/c, [place], back pain, hematuria, dysuria. - Current Medication List Current Medications: Active Medications Albuterol/Ipratropium (Duoneb -) 1 amp NEB Q6H PRN PRN Reason: SHORTNESS OF BREATH Last Admin: 07/31/17 10:50 Dose: 1 amp Clopidogrel Bisulfate (Plavix -) 75 mg PO DAILY [facility] Last Admin: 08/01/17 09:36 Dose: 75 mg Enoxaparin Sodium (Lovenox -) 40 mg SQ DAILY [facility] Last Admin: 08/01/17 09:38 Dose: Not Given Furosemide (Lasix Injection -) 40 mg IVPUSH BID@0600,1400 [facility] Last Admin: 08/01/17 06:18 Dose: 40 mg Insulin Aspart (Novolog Vial Sliding Scale -) 1 vial SQ ACHS [facility] PRN Reason: Protocol Last Admin: 08/01/17 06:18 Dose: 2 units Levothyroxine Sodium (Synthroid -) 75 mcg PO DAILY@0700 [facility] Last Admin: 08/01/17 06:19 Dose: 75 mcg Methylprednisolone Sodium Succinate (Solu-Medrol -) 40 mg IVPUSH DAILY [facility] Metoprolol Succinate (Toprol Xl -) 100 mg PO DAILY [facility] Last Admin: 08/01/17 09:36 Dose: 100 mg Nicotine (Nicoderm Patch -) 21 mg TD DAILY [facility] Last Admin: 08/01/17 09:38 Dose: Not Given Spironolactone (Aldactone -) 50 mg PO DAILY [facility] Last Admin: 08/01/17 09:36 Dose: 50 mg - Objective Vital Signs: Vital Signs Temperature 97.3 F L 08/01/17 06:00 Pulse Rate 63 08/01/17 06:00 Respiratory Rate 20 08/01/17 06:00 Blood Pressure 115/69 08/01/17 06:00 O2 Sat by Pulse Oximetry (%) 97 07/31/17 21:00 Eyes: Yes: WNL, Conjunctiva Clear, EOM Intact HENT: Yes: WNL, Atraumatic, Normocephalic Neck: Yes: WNL, Supple, Trachea Midline Cardiovascular: Yes: WNL, Regular Rate and Rhythm Respiratory: Yes: WNL, Regular, CTA Bilaterally Gastrointestinal: Yes: WNL, Normal Bowel Sounds Genitourinary: Yes: WNL Musculoskeletal: Yes: WNL Extremities: Yes: WNL Edema: No Integumentary: Yes: WNL Neurological: Yes: WNL, Alert, Oriented ...Motor Strength: WNL Psychiatric: Yes: WNL Labs: CBC, BMP 08/01/17 09:20 08/01/17 09:20 INR, PTT INR 1.72 (0.82-1.09) H 07/27/17 08:50 Problem List - Problems (1) Anasarca Code(s): R60.1 - GENERALIZED EDEMA (2) CHF exacerbation Code(s): I50.9 - HEART FAILURE, UNSPECIFIED Qualifiers: Heart failure type: unspecified Qualified Code(s): I50.9 - Heart failure, unspecified (3) Hypokalemia Code(s): E87.6 - HYPOKALEMIA (4) Shortness of breath Code(s): R06.02 - SHORTNESS OF BREATH (5) LIANNA (acute kidney injury) Code(s): N17.9 - ACUTE KIDNEY FAILURE, UNSPECIFIED (6) Bacteremia Code(s): R78.81 - BACTEREMIA (7) Chest pain of uncertain etiology Code(s): R07.89 - OTHER CHEST PAIN (8) Sepsis Code(s): A41.9 - SEPSIS, UNSPECIFIED ORGANISM (9) Abdominal pain Code(s): R10.9 - UNSPECIFIED ABDOMINAL PAIN Qualifiers: Abdominal location: lower abdomen, unspecified Qualified Code(s): R10.30 - Lower abdominal pain, unspecified (10) Acute combined systolic and diastolic ACC/AHA stage C congestive heart failure Code(s): I50.41 - ACUTE COMBINED SYSTOLIC AND DIASTOLIC (CONGESTIVE) HRT FAIL (11) Acute on chronic systolic and diastolic heart failure, NYHA class 1 Code(s): I50.43 - ACUTE ON CHRONIC COMBINED SYSTOLIC AND DIASTOLIC HRT FAIL (12) CHF (congestive heart failure) Code(s): I50.9 - HEART FAILURE, UNSPECIFIED (13) Chest pain Code(s): R07.9 - CHEST PAIN, UNSPECIFIED Qualifiers: Chest pain type: unspecified Qualified Code(s): R07.9 - Chest pain, unspecified (14) Chronic systolic congestive heart failure Code(s): I50.22 - CHRONIC SYSTOLIC (CONGESTIVE) HEART FAILURE (15) Cigarette nicotine dependence Code(s): F17.210 - NICOTINE DEPENDENCE, CIGARETTES, UNCOMPLICATED (16) Coronary artery disease Code(s): I25.10 - ATHSCL HEART DISEASE OF [place] CORONARY ARTERY W/O ANG PCTRS (17) Depression Code(s): F32.9 - MAJOR DEPRESSIVE DISORDER, SINGLE EPISODE, UNSPECIFIED (18) Diabetes Code(s): E11.9 - TYPE 2 DIABETES MELLITUS WITHOUT COMPLICATIONS Qualifiers: Diabetes mellitus type: type 2 Diabetes mellitus machine long goods helper insulin use: with penitentiary use Diabetes mellitus complication status: with unspecified complications Qualified Code(s): E11.8 - Type 2 diabetes mellitus with unspecified complications (19) Dyspepsia Code(s): K30 - FUNCTIONAL DYSPEPSIA (20) Elevated liver function tests Code(s): R94.5 - ABNORMAL RESULTS OF LIVER FUNCTION STUDIES (21) Elevated troponin Code(s): R74.8 - ABNORMAL LEVELS OF OTHER SERUM ENZYMES (22) Fatty liver Code(s): K76.0 - FATTY (CHANGE OF) LIVER, NOT ELSEWHERE CLASSIFIED (23) Hyperbilirubinemia Code(s): E80.6 - OTHER DISORDERS OF BILIRUBIN METABOLISM (24) Hyperlipidemia Code(s): E78.5 - HYPERLIPIDEMIA, UNSPECIFIED (25) Hypertension Code(s): I10 - ESSENTIAL (PRIMARY) HYPERTENSION (26) Hypothyroidism Code(s): E03.9 - HYPOTHYROIDISM, UNSPECIFIED (27) ICD (implantable cardioverter-defibrillator) in place Code(s): Z95.810 - PRESENCE OF AUTOMATIC (IMPLANTABLE) CARDIAC DEFIBRILLATOR (28) Lower extremity edema Code(s): R60.0 - LOCALIZED EDEMA (29) NSVT (nonsustained ventricular tachycardia) Code(s): I47.2 - VENTRICULAR TACHYCARDIA (30) Noncompliance with medication regimen Code(s): Z91.14 - PATIENT'S OTHER NONCOMPLIANCE WITH MEDICATION REGIMEN (31) Peripheral neuropathy Code(s): G62.9 - POLYNEUROPATHY, UNSPECIFIED Qualifiers: Peripheral neuropathy type: polyneuropathy, unspecified Qualified Code(s): G62.9 - Polyneuropathy, unspecified (33) Sleep apnea Code(s): G47.30 - SLEEP APNEA, UNSPECIFIED (34) Sphincter of Oddi dysfunction Code(s): K83.4 - SPASM OF SPHINCTER OF ODDI (35) Status post THR (total hip replacement) Code(s): Z96.649 - PRESENCE OF UNSPECIFIED ARTIFICIAL HIP JOINT (36) Tobacco use disorder Code(s): Z72.0 - TOBACCO USE (37) Transaminitis Code(s): R74.0 - NONSPEC ELEV OF LEVELS OF TRANSAMNS & LACTIC ACID DEHYDRGNSE (38) Cardiac cirrhosis Code(s): K76.1 - CHRONIC PASSIVE CONGESTION OF LIVER Assessment/Plan Problems (1) AICD (automatic cardioverter/defibrillator) present Code(s): Z95.810 - PRESENCE OF AUTOMATIC (IMPLANTABLE) CARDIAC DEFIBRILLATOR (2) Acute on chronic systolic and diastolic heart failure, NYHA class 3 Assessment/Plan: Continue carvedilol and spironolactone. If not already on it, start ACEI (e.g. lisinopril 2.5 mg daily); pt has systolic CHF, DM, and HTN. BUN/Cr, daily weight, Is and Os, electrolytes. Code(s): I50.43 - ACUTE ON CHRONIC COMBINED SYSTOLIC AND DIASTOLIC HRT FAIL (3) Anasarca Code(s): R60.1 - GENERALIZED EDEMA (4) COPD (chronic obstructive pulmonary disease) Code(s): J44.9 - CHRONIC OBSTRUCTIVE PULMONARY DISEASE, UNSPECIFIED (5) Overweight Code(s): E66.3 - OVERWEIGHT (6) Anxiety and depression Code(s): F41.9 - ANXIETY DISORDER, UNSPECIFIED; F32.9 - MAJOR DEPRESSIVE DISORDER, SINGLE EPISODE, UNSPECIFIED (7) Cigarette nicotine dependence Assessment/Plan: on nicotine patch. Code(s): F17.210 - NICOTINE DEPENDENCE, CIGARETTES, UNCOMPLICATED (8) Status post THR (total hip replacement) Code(s): Z96.649 - PRESENCE OF UNSPECIFIED ARTIFICIAL HIP JOINT (9) Tobacco use disorder Code(s): Z72.0 - TOBACCO USE
[2017-08-01] MEDS: LISINOPRIL 5 MG TABLET (FP) PO SCH (13:48)
[2017-08-01] MEDS: POTASSIUM CHLORIDE TABS 20 MEQ TABLET.ER (FP) PO ONE ×3 (13:48→16:21)
[2017-08-01] MEDS: ALBUTEROL SO4 2.5/IPRATROPIUM 0.5 INH SOL 3 ML VIAL.NEB. NEB PRN (14:15)
[2017-08-01] MEDS ORDERED: FUROSEMIDE 40 MG/4 ML INJECTABLE VIAL IVPUSH STA (16:00)
[2017-08-01] MEDS ORDERED: PT OWN MED DRAWER 7, Y5N ONE (16:14)
--- NOTE | 2017-08-01 16:16 | PN ---
Physical Exam: SUBJECTIVE: Patient seen and examined sitting on edge of bed. OBJECTIVE: Vital Signs Period Temp Pulse Resp BP Sys/Santoro Pulse Ox Last 24 Hr 97.3 F-98.2 F 63-86 20-20 115-137/67-79 92-97 GENERAL: The patient is awake, alert, and fully oriented, in no acute distress. LUNGS: Diffuse wheezing and rhonchi HEART: Regular rate and rhythm, S1, S2 ABDOMEN: Soft, nontender, nondistended, normoactive bowel sounds, no guarding, no rebound LOWER EXTREMITIES: 3+ tense bilateral edema NEUROLOGICAL: Cranial nerves II through XII grossly intact. Normal speech, gait not observed. Laboratory Results - last 24 hr 07/31/17 07/31/17 08/01/17 17:23 22:20 06:15 WBC RBC Hgb Hct MCV MCH MCHC RDW Plt Count MPV Neutrophils % Lymphocytes % Monocytes % Eosinophils % Basophils % Sodium Potassium Chloride Carbon Dioxide Anion Gap BUN Creatinine Creat Clearance w eGFR POC Glucometer 194 260 157 Random Glucose Calcium Magnesium Total Bilirubin AST ALT Alkaline Phosphatase Total Protein Albumin 08/01/17 08/01/17 09:20 09:20 WBC 10.1 H D RBC 4.12 Hgb 11.8 Hct 35.7 MCV 86.6 MCH 28.7 MCHC 33.2 RDW 16.8 H Plt Count 164 MPV 8.5 Neutrophils % 82.3 Lymphocytes % 6.2 L D Monocytes % 11.4 H Eosinophils % 0.0 Basophils % 0.1 D Sodium 140 Potassium 3.4 L Chloride 98 Carbon Dioxide 31 Anion Gap 11 BUN 23 H Creatinine 0.8 Creat Clearance w eGFR > 60 POC Glucometer Random Glucose 168 H Calcium 8.2 L Magnesium 2.2 Total Bilirubin 2.3 H D AST 25 ALT 16 Alkaline Phosphatase 142 H Total Protein 7.4 Albumin 2.9 L Active Medications Generic Name Dose Route Start Last Admin Trade Name Freq PRN Reason Stop Dose Admin Albuterol/Ipratropium 1 amp 07/27/17 16:35 07/31/17 10:50 Duoneb - NEB 1 amp Q6H PRN Administration SHORTNESS OF BREATH Clopidogrel Bisulfate 75 mg 07/28/17 10:00 08/01/17 09:36 Plavix - PO 75 mg DAILY [facility] Administration Enoxaparin Sodium 40 mg 07/28/17 10:00 08/01/17 09:38 Lovenox - SQ Not Given DAILY [facility] Furosemide 40 mg 07/28/17 06:00 08/01/17 13:48 Lasix Injection - IVPUSH 40 mg BID@0600,1400 [facility] Administration Insulin Aspart 1 vial 07/27/17 16:30 08/01/17 13:16 Novolog Vial Sliding Scale - SQ Not Given ACHS [facility] Protocol Levothyroxine Sodium 75 mcg 07/28/17 07:00 08/01/17 06:19 Synthroid - PO 75 mcg DAILY@0700 [facility] Administration Lisinopril 2.5 mg 08/01/17 13:30 08/01/17 13:48 Prinivil PO 2.5 mg DAILY [facility] Administration Methylprednisolone Sodium Succinate 40 mg 08/02/17 10:00 Solu-Medrol - IVPUSH DAILY [facility] Metoprolol Succinate 100 mg 07/28/17 10:00 08/01/17 09:36 Toprol Xl - PO 100 mg DAILY [facility] Administration Nicotine 21 mg 07/29/17 11:00 08/01/17 09:38 Nicoderm Patch - TD Not Given DAILY [facility] Spironolactone 50 mg 07/28/17 10:00 08/01/17 09:36 Aldactone - PO 50 mg DAILY [facility] Administration ASSESSMENT/PLAN 62 year-old female with a PMH significant for HTN, HLD, CAD s/p stents, systolic HF s/p ICD/Pacemaker, COPD (current smoker), DM, hypothyroidism, peripheral neuropathy, chronic abdominal pain (thought to be due to liver cirrhosis/biliary tree strictures s/p lap naomi for acalcalous cholecystitis ). She was admitted on 07/27/2017 with shortness of breath and a fall at home. Imaging CT/Abdomen & Pelvis CT with contrast 07/27/2017: mesenteric edema and subcutaneous edema again seen suggestive of anasarca. Interval small amt of free fluid ascites in the RUQ. Hepatomegaly. Status post cholecystectomy surgical metallic clips seen with small amt of fluid in the gallbladder fossa Normal size common hepatic duct. Chest xray 07/27/2017: noted vascular congestive changes. Head CT 07/27/2017: negative Echo 07/26/2017: severely dilated LV, LV hypertrophy, LA mod. dilated, moderate pulmonic valve regurg., mod to severe mitral regurg. Acute on chronic systolic heart failure --reviewing patient's numerous visits, her dry weight appears to be ~69kg; she is 79kg today --diffuse wheezing and rhonchi and significant bilateral lower extremity edema --increase lasix to 80mg BID --continue spironolactone --renal function is stable, monitor closely while on aggressive diuresis COPD --continue solumedrol --duonebs QID scheduled --pre post today: 92% room air at rest, 88% room air with flat surface walking; needed 2L to bring up to 92% Coronary artery disease --continue Toprol XL, Plavix Hypertension --continue Toprol XL, start lisinopril, diuretics Hypothyroidism --continue levothyroxine Diabetes --Novolog sliding scale coverage Hypokalemia --repleted FEN Fluids: PO intake adequate Electrolytes: replete as indicated Nutrition: low sodium, diabetic DVT prophylaxis: lovenox, oob, ambulation Physical therapy Dispo: continues to require inpatient care. Full code. Visit type - Emergency Visit Emergency Visit: Yes ED Registration Date: 07/27/17 Care time: The patient presented to the Emergency Department on the above date and was hospitalized for further evaluation of their emergent condition. - New Patient This patient is new to me today: Yes Date on this admission: 08/01/17 - Critical Care Critical Care patient: No
[2017-08-01] MEDS ORDERED: INSULIN (NOVOLOG) ASPART 100 UNITS/ML 10ML VIAL ONE (20:58)
[2017-08-01] MEDS: ALBUTEROL SO4 2.5/IPRATROPIUM 0.5 INH SOL 3 ML VIAL.NEB. NEB SCH (21:00)
[2017-08-02] MEDS: INSULIN SLIDING SCALE (NOVOLOG) 1 VIAL SQ SCH ×2 (06:12→12:14)
[2017-08-02] MEDS: FUROSEMIDE 40 MG/4 ML INJECTABLE VIAL IVPUSH SCH ×2 (06:12→13:51)
[2017-08-02] MEDS: LEVOTHYROXINE NA 75 MCG TABLET (FP) PO SCH (06:12)
[2017-08-02] MEDS: ALBUTEROL SO4 2.5/IPRATROPIUM 0.5 INH SOL 3 ML VIAL.NEB. NEB SCH ×3 (07:30→17:53)
[2017-08-02] MEDS ORDERED: methylPREDNISolone NA SUCC 40 MG/1 ML VIAL IVPUSH SCH (10:00)
[2017-08-02 10:02] LABS: ALBUMIN 2.8 g/dl (3.4-5.0); ANION GAP 9 (8-16); BILIRUBIN,TOTAL 1.7 mg/dL (0.2-1.0); BLOOD UREA NITROGEN 23 mg/dL (7-18); CALCIUM 7.5 mg/dL (8.5-10.1); CHLORIDE 100 mmol/L (98-107); CO2 31 mmol/L (21-32); CREATININE 0.9 mg/dL (0.55-1.02); GLUCOSE,RANDOM 155 mg/dL (74-106); POTASSIUM 3.2 mmol/L (3.5-5.1); SGOT/AST 22 U/L (15-37); SGPT/ALT 16 U/L (12-78); SODIUM 140 mmol/L (136-145); TOT PROT 7.2 g/dl (6.4-8.2)
[2017-08-02 10:03] LABS: ALK PHOS 159 U/L (45-117)
[2017-08-02] MEDS: LISINOPRIL 5 MG TABLET (FP) PO SCH (10:13)
[2017-08-02] MEDS: CLOPIDOGREL BISULFATE 75 MG TABLET (FP) PO SCH (10:13)
[2017-08-02] MEDS: NICOTINE 21 MG/24 HOURS TOPICAL PATCH TD SCH (10:13)
[2017-08-02] MEDS: SPIRONOLACTONE 25 MG TABLET (FP) PO SCH (10:13)
[2017-08-02] MEDS: ENOXAPARIN NA (PORCINE) 40 MG/0.4 ML DISP.SYRIN SQ SCH (10:13)
[2017-08-02] MEDS ORDERED: POTASSIUM CHLORIDE TABS 20 MEQ TABLET.ER (FP) PO SCH (10:30)
--- NOTE | 2017-08-02 11:11 | PN ---
Physical Exam: SUBJECTIVE: Patient seen and examined at the bedside. OBJECTIVE: Will need home oxygen, on high dose Lasix Discharge once cleared by cardiology Vital Signs Period Temp Pulse Resp BP Sys/Santoro Pulse Ox Last 24 Hr 97.4 F-98.6 F 71-86 20-24 121-142/70-81 92-96 GENERAL: The patient is awake, alert, and fully oriented, in no acute distress. HEAD: Normal with no signs of trauma. EYES: PERRL, extraocular movements intact, sclera anicteric, conjunctiva clear. No ptosis. ENT: Ears normal, nares patent, oropharynx clear without exudates, moist mucous membranes. NECK: Trachea midline, full range of motion, supple. LUNGS: breath sounds with scattered rhonchi, no wheezing no accessory muscle use. Breath sounds improving with solumedrol. HEART: Regular rate and rhythm ABDOMEN: Soft, nontender, nondistended, normoactive bowel sounds, no guarding, no rebound, no hepatosplenomegaly, no masses. EXTREMITIES: 2+ pulses, warm, well-perfused, no edema. NEUROLOGICAL: Normal speech, gait not observed. PSYCH: Normal mood, normal affect. SKIN: Warm, dry, normal turgor, no rashes or lesions noted Laboratory Results - last 24 hr 08/01/17 08/01/17 08/02/17 09:20 21:29 06:11 WBC 10.1 H D RBC 4.12 Hgb 11.8 Hct 35.7 MCV 86.6 MCH 28.7 MCHC 33.2 RDW 16.8 H Plt Count 164 MPV 8.5 Neutrophils % 82.3 Lymphocytes % 6.2 L D Monocytes % 11.4 H Eosinophils % 0.0 Basophils % 0.1 D Sodium Potassium Chloride Carbon Dioxide Anion Gap BUN Creatinine Creat Clearance w eGFR POC Glucometer 320 131 Random Glucose Calcium Total Bilirubin AST ALT Alkaline Phosphatase Total Protein Albumin 08/02/17 09:10 WBC RBC Hgb Hct MCV MCH MCHC RDW Plt Count MPV Neutrophils % Lymphocytes % Monocytes % Eosinophils % Basophils % Sodium 140 Potassium 3.2 L Chloride 100 Carbon Dioxide 31 Anion Gap 9 BUN 23 H Creatinine 0.9 Creat Clearance w eGFR > 60 POC Glucometer Random Glucose 155 H Calcium 7.5 L Total Bilirubin 1.7 H D AST 22 ALT 16 Alkaline Phosphatase 159 H Total Protein 7.2 Albumin 2.8 L Active Medications Generic Name Dose Route Start Last Admin Trade Name [place] PRN Reason Stop Dose Admin Albuterol/Ipratropium 1 amp 08/01/17 20:00 08/02/17 07:30 Duoneb - NEB 1 amp RQID [facility] Administration Clopidogrel Bisulfate 75 mg 07/28/17 10:00 08/02/17 10:13 Plavix - PO 75 mg DAILY [facility] Administration Enoxaparin Sodium 40 mg 07/28/17 10:00 08/02/17 10:13 Lovenox - SQ Not Given DAILY [facility] Furosemide 80 mg 08/01/17 15:58 08/02/17 06:12 Lasix Injection - IVPUSH 80 mg BID@0600,1400 [facility] Administration Insulin Aspart 1 vial 07/27/17 16:30 08/02/17 06:12 Novolog Vial Sliding Scale - SQ Not Given ACHS [facility] Protocol Levothyroxine Sodium 75 mcg 07/28/17 07:00 08/02/17 06:12 Synthroid - PO 75 mcg DAILY@0700 [facility] Administration Lisinopril 2.5 mg 08/01/17 13:30 08/02/17 10:13 Prinivil PO 2.5 mg DAILY [facility] Administration Methylprednisolone Sodium Succinate 40 mg 08/02/17 10:00 08/02/17 10:14 Solu-Medrol - IVPUSH 40 mg DAILY [facility] Administration Metoprolol Succinate 100 mg 07/28/17 10:00 08/02/17 10:14 Toprol Xl - PO 100 mg DAILY [facility] Administration Nicotine 21 mg 07/29/17 11:00 08/02/17 10:13 Nicoderm Patch - TD Not Given DAILY [facility] Potassium Chloride 40 meq 08/02/17 10:30 K-Dur - PO DAILY [facility] Spironolactone 50 mg 07/28/17 10:00 08/02/17 10:13 Aldactone - PO 50 mg DAILY [facility] Administration ASSESSMENT/PLAN:
[2017-08-02] MEDS ORDERED: LISINOPRIL 5 MG TABLET (FP) PO ONE (11:46)
--- NOTE | 2017-08-02 11:49 | PN ---
Progress Note, Physician Chief Complaint: Pt A&Ox3; no chest pain; dyspneic on mild exertion - Current Medication List Current Medications: Active Medications Albuterol/Ipratropium (Duoneb -) 1 amp NEB RQID [facility] Last Admin: 08/02/17 11:14 Dose: 1 amp Clopidogrel Bisulfate (Plavix -) 75 mg PO DAILY [facility] Last Admin: 08/02/17 10:13 Dose: 75 mg Enoxaparin Sodium (Lovenox -) 40 mg SQ DAILY [facility] Last Admin: 08/02/17 10:13 Dose: Not Given Furosemide (Lasix Injection -) 80 mg IVPUSH BID@0600,1400 [facility] Last Admin: 08/02/17 06:12 Dose: 80 mg Insulin Aspart (Novolog Vial Sliding Scale -) 1 vial SQ ACHS [facility] PRN Reason: Protocol Last Admin: 08/02/17 06:12 Dose: Not Given Levothyroxine Sodium (Synthroid -) 75 mcg PO DAILY@0700 [facility] Last Admin: 08/02/17 06:12 Dose: 75 mcg Lisinopril (Prinivil) 2.5 mg PO ONCE ONE Stop: 08/02/17 11:47 Methylprednisolone Sodium Succinate (Solu-Medrol -) 40 mg IVPUSH DAILY [facility] Last Admin: 08/02/17 10:14 Dose: 40 mg Metoprolol Succinate (Toprol Xl -) 100 mg PO DAILY [facility] Last Admin: 08/02/17 10:14 Dose: 100 mg Nicotine (Nicoderm Patch -) 21 mg TD DAILY [facility] Last Admin: 08/02/17 10:13 Dose: Not Given Potassium Chloride (K-Dur -) 40 meq PO DAILY [facility] Spironolactone (Aldactone -) 50 mg PO DAILY [facility] Last Admin: 08/02/17 10:13 Dose: 50 mg - Objective Vital Signs: Vital Signs Temperature 98.1 F 08/02/17 08:32 Pulse Rate 74 08/02/17 08:32 Respiratory Rate 24 08/02/17 08:32 Blood Pressure 132/81 08/02/17 08:32 O2 Sat by Pulse Oximetry (%) 96 08/02/17 08:32 Labs: CBC, BMP 08/01/17 09:20 08/02/17 09:10 INR, PTT INR 1.72 (0.82-1.09) H 07/27/17 08:50 Problem List - Problems (1) AICD (automatic cardioverter/defibrillator) present Code(s): Z95.810 - PRESENCE OF AUTOMATIC (IMPLANTABLE) CARDIAC DEFIBRILLATOR (2) Acute on chronic systolic and diastolic heart failure, NYHA class 3 Assessment/Plan: Continue carvedilol and spironolactone. Increase lisinopril to 5 mg daily; f/u BUn/Cr and electrolytes (hypokaemia has required regular K+ supplements). BUN/Cr, daily weight, Is and Os, electrolytes. From a cardiac standpoint, pt may be followed as an outpatient. Code(s): I50.43 - ACUTE ON CHRONIC COMBINED SYSTOLIC AND DIASTOLIC HRT FAIL (3) Anasarca Code(s): R60.1 - GENERALIZED EDEMA (4) COPD (chronic obstructive pulmonary disease) Code(s): J44.9 - CHRONIC OBSTRUCTIVE PULMONARY DISEASE, UNSPECIFIED (5) Overweight Code(s): E66.3 - OVERWEIGHT (6) Anxiety and depression Code(s): F41.9 - ANXIETY DISORDER, UNSPECIFIED; F32.9 - MAJOR DEPRESSIVE DISORDER, SINGLE EPISODE, UNSPECIFIED (7) Cigarette nicotine dependence Assessment/Plan: on nicotine patch. The imperative need not to smoke, particularly because pt requires home O2, was discussed. Code(s): F17.210 - NICOTINE DEPENDENCE, CIGARETTES, UNCOMPLICATED (8) Status post THR (total hip replacement) Code(s): Z96.649 - PRESENCE OF UNSPECIFIED ARTIFICIAL HIP JOINT
--- NOTE | 2017-08-02 12:41 | DS ---
Physical Exam: SUBJECTIVE: Patient seen and examined at the bedside. Feels better, will need home oxygen, patient aware she cannot smoke when on oxygen. Daughter at the bedside. OBJECTIVE: discharge home with oxygen Vital Signs Period Temp Pulse Resp BP Sys/Santoro Pulse Ox Last 24 Hr 97.4 F-98.6 F 71-86 20-24 121-142/70-81 92-96 PHYSICAL EXAM GENERAL: The patient is awake, alert, and fully oriented, in no acute distress. HEAD: Normal with no signs of trauma. EYES: PERRL, extraocular movements intact, sclera anicteric, conjunctiva clear. No ptosis. ENT: Ears normal, nares patent, oropharynx clear without exudates, moist mucous membranes. NECK: Trachea midline, full range of motion, supple. LUNGS: breath sounds with scattered rhonchi, no wheezing no accessory muscle use. Breath sounds improving with solumedrol. HEART: Regular rate and rhythm ABDOMEN: Soft, nontender, nondistended, normoactive bowel sounds, no guarding, no rebound, no hepatosplenomegaly, no masses. EXTREMITIES: 2+ pulses, warm, well-perfused, no edema. NEUROLOGICAL: Normal speech, gait not observed. PSYCH: Normal mood, normal affect. SKIN: Warm, dry, normal turgor, no rashes or lesions noted Laboratory Results - last 24 hr 08/01/17 08/02/17 08/02/17 21:29 06:11 09:10 Sodium 140 Potassium 3.2 L Chloride 100 Carbon Dioxide 31 Anion Gap 9 BUN 23 H Creatinine 0.9 Creat Clearance w eGFR > 60 POC Glucometer 320 131 Random Glucose 155 H Calcium 7.5 L Total Bilirubin 1.7 H D AST 22 ALT 16 Alkaline Phosphatase 159 H Total Protein 7.2 Albumin 2.8 L 08/02/17 11:04 Sodium Potassium Chloride Carbon Dioxide Anion Gap BUN Creatinine Creat Clearance w eGFR POC Glucometer 164 Random Glucose Calcium Total Bilirubin AST ALT Alkaline Phosphatase Total Protein Albumin HOSPITAL COURSE: Date of Admission:07/27/17 Date of Discharge: 08/02/17 ASSESSMENT/PLAN: Patient is a 62 year old female with a significant past medical history of hyperbilirubinemia, hypertension, hyperlipidemia, diabetes, CABG in 2004 s/p stents 2, Systolic CHF s/p ICD/Pacemaker, COPD, current smoker, hypothyroidism , peripheral neuropathy, chronic abdominal pain (thought to be due to liver cirrhosis/biliary tree strictures s/p lap naomi for acalcalous cholecystitis ). She was admitted on 07/27/2017 with shortness of breath and a fall at home. Imaging: CT/Abdomen & Pelvis CT with contrast 07/27/2017: esenteric edema and subcutaneous edema again seen suggestive of anasarca. Interval small amt of free fluid ascites in the RUQ. Hepatomegaly. Status post cholecystectomy surgical metallic clips seen with small amt of fluid in the gallbladder fossa Normal size common hepatic duct. Chest xray 07/27/2017: noted vascular congestive changes. Head CT 07/27/2017: negative Echo 07/26/2017: severely dilated LV, LV hypertrophy, LA mod. dilated, moderate pulmonic valve regurg., mod to severe mitral regurg. Cardiology Systolic Heart failure, acute on chronic Lasix 80mg PO BID (new home dose) Echo reviewed, EF 25% Metoprolol 100mg PO daily, Aldactone 50 mg daily On home oxygen @ 2 liters CAD s/p stents/CABG On Plavix 75 mg daily Hypertension, chronic Monitor BP Hypothyroid On Synthroid 75 mcg Pulmonary Shortness of breath Lungs with congestion bilaterally Steroid taper Home with oxygen Psyche: Tobacco dependence Patient in agreement to not smoke Will be sent Endocrine Diabetes, chronic Patient to be sent home with glucometer Not on any home hypoglycemic and refusing visiting nurse to monitor blood sugars May need to be started metformin outpt Disposition: full code. Minutes to complete discharge: 60 Discharge Summary Reason For Visit: ACUTE ON CHRONIC CHF,SOB,EDEMA Current Active Problems AICD (automatic cardioverter/defibrillator) present (Acute) Acute on chronic systolic and diastolic heart failure, NYHA class 3 (Acute) Anasarca (Acute) Anxiety and depression (Acute) CHF exacerbation (Acute) COPD (chronic obstructive pulmonary disease) (Acute) Hypokalemia (Acute) Overweight (Acute) Shortness of breath (Acute) Condition: Fair - Instructions Diet, Activity, Other Instructions: Mrs. Álvaro Prado: Please return to the ER with new or worsening symptoms. Your medications have been modified, please see your discharge instructions for the most current list of your medications. I have also ordered a glucometer for you so that you can check your blood surgars before meals. You may need to start on a hypoglycemic medications if you continue to have high blood sugars. Please call me with any questions that you may have. Prednisone taper as follows Prednisone 40mg daily on 08/03 and 08/04 Prednisone 30mg daily on 08/05 and 08/06 Prednisone 20mg daily on 08/07 and 08/08 Prednisone 10mg daily on 08/09 and 08/10 - last dose Lyubov Garcia Nazario [employer]IL[employer] [phone] [facility] Referrals: Parrish Ferrer MD [Primary Care Provider] - 1 Week Dick Cage MD [Staff Physician] - 2 Weeks Disposition: HOME - Home Medications Comprehensive Discharge Medication List: Ambulatory Orders Unobtainable [Unobtainable] 07/27/17 This patient is new to me today: No Emergency Visit: Yes ED Registration Date: 07/27/17 Care time: The patient presented to the Emergency Department on the above date and was hospitalized for further evaluation of their emergent condition. Critical Care patient: No - Discharge Referral Referred to [facility] Med P.C.: No
--- NOTE | 2017-08-02 15:04 | PN ---
Progress Note (short form) - Note Progress Note: Overall feels better. No CP. SOB improved. Afebrile. Intake & Output 07/30/17 07/31/17 08/01/17 08/02/17 23:59 23:59 23:59 23:59 Intake Total 690 490 860 200 Balance 690 490 860 200 Weight 173 lb 8 oz 174 lb 12.8 oz 173 lb 6 oz Last Vital Signs Temp Pulse Resp BP Pulse Ox 98.1 F 76 20 122/76 96 08/02/17 08:32 08/02/17 13:00 08/02/17 13:00 08/02/17 13:00 08/02/17 08:32 Active Medications Albuterol/Ipratropium (Duoneb -) 1 amp NEB RQID [facility] Last Admin: 08/02/17 11:14 Dose: 1 amp Clopidogrel Bisulfate (Plavix -) 75 mg PO DAILY [facility] Last Admin: 08/02/17 10:13 Dose: 75 mg Enoxaparin Sodium (Lovenox -) 40 mg SQ DAILY [facility] Last Admin: 08/02/17 10:13 Dose: Not Given Furosemide (Lasix Injection -) 80 mg IVPUSH BID@0600,1400 [facility] Last Admin: 08/02/17 13:51 Dose: 80 mg Insulin Aspart (Novolog Vial Sliding Scale -) 1 vial SQ ACHS [facility] PRN Reason: Protocol Last Admin: 08/02/17 12:14 Dose: Not Given Levothyroxine Sodium (Synthroid -) 75 mcg PO DAILY@0700 [facility] Last Admin: 08/02/17 06:12 Dose: 75 mcg Lisinopril (Prinivil) 5 mg PO DAILY [facility] Methylprednisolone Sodium Succinate (Solu-Medrol -) 40 mg IVPUSH DAILY [facility] Last Admin: 08/02/17 10:14 Dose: 40 mg Metoprolol Succinate (Toprol Xl -) 100 mg PO DAILY [facility] Last Admin: 08/02/17 10:14 Dose: 100 mg Nicotine (Nicoderm Patch -) 21 mg TD DAILY [facility] Last Admin: 08/02/17 10:13 Dose: Not Given Potassium Chloride (K-Dur -) 40 meq PO DAILY [facility] Last Admin: 08/02/17 12:14 Dose: 40 meq Spironolactone (Aldactone -) 50 mg PO DAILY [facility] Last Admin: 08/02/17 10:13 Dose: 50 mg Constitutional: Yes: NAD Eyes: Yes: WNL HENT: Yes: WNL Neck: Yes: WNL Cardiovascular: Yes: Pulse Irregular, S1, S2 Respiratory: Yes: scattered rhonchi, no wheeze Gastrointestinal: Yes: Normal Bowel Sounds, Soft Extremities: Yes: WNL Edema: Yes Labs: Laboratory Results - last 24 hr 08/01/17 08/02/17 08/02/17 21:29 06:11 09:10 Sodium 140 Potassium 3.2 L Chloride 100 Carbon Dioxide 31 Anion Gap 9 BUN 23 H Creatinine 0.9 Creat Clearance w eGFR > 60 POC Glucometer 320 131 Random Glucose 155 H Calcium 7.5 L Total Bilirubin 1.7 H D AST 22 ALT 16 Alkaline Phosphatase 159 H Total Protein 7.2 Albumin 2.8 L 08/02/17 11:04 Sodium Potassium Chloride Carbon Dioxide Anion Gap BUN Creatinine Creat Clearance w eGFR POC Glucometer 164 Random Glucose Calcium Total Bilirubin AST ALT Alkaline Phosphatase Total Protein Albumin Problem List - Problems (1) Acute on chronic systolic and diastolic heart failure, NYHA class 3 Code(s): I50.43 - ACUTE ON CHRONIC COMBINED SYSTOLIC AND DIASTOLIC HRT FAIL (2) Anasarca Code(s): R60.1 - GENERALIZED EDEMA (3) CHF exacerbation Code(s): I50.9 - HEART FAILURE, UNSPECIFIED Qualifiers: Heart failure type: unspecified Qualified Code(s): I50.9 - Heart failure, unspecified (4) Hypokalemia Code(s): E87.6 - HYPOKALEMIA (5) Shortness of breath Code(s): R06.02 - SHORTNESS OF BREATH (6) Abdominal pain Code(s): R10.9 - UNSPECIFIED ABDOMINAL PAIN Qualifiers: Abdominal location: lower abdomen, unspecified Qualified Code(s): R10.30 - Lower abdominal pain, unspecified (7) Cigarette nicotine dependence Code(s): F17.210 - NICOTINE DEPENDENCE, CIGARETTES, UNCOMPLICATED (8) Hypertension Code(s): I10 - ESSENTIAL (PRIMARY) HYPERTENSION (9) Hypothyroidism Code(s): E03.9 - HYPOTHYROIDISM, UNSPECIFIED (10) ICD (implantable cardioverter-defibrillator) in place Code(s): Z95.810 - PRESENCE OF AUTOMATIC (IMPLANTABLE) CARDIAC DEFIBRILLATOR (11) Tobacco use disorder Code(s): Z72.0 - TOBACCO USE (12) COPD (chronic obstructive pulmonary disease) Code(s): J44.9 - CHRONIC OBSTRUCTIVE PULMONARY DISEASE, UNSPECIFIED Assessment/Plan IMP ACUTE ON CHRONIC SYSTOLIC CHF SEVERE LV DYSFUNCTION S/P ICD/PPM ASHD S/P [place] ,S/P CABG,STENTS COPD HTN HLD ABD PAIN CHRONIC TOBACCO ABUSE PLAN LASIX ALDACTONE INHALED BRONCHODILATORS NO SMOKING D/C HOME DR CHAKRABORTY
[2017-08-02 15:27] VITALS: BP 128/66; PULSE 70; TEMP 98.7
[2017-08-03] MEDS ORDERED: LISINOPRIL 5 MG TABLET (FP) PO SCH (10:00)
== END 2017-08-02 18:04 | disposition home or self-care (01) | DRG 292 ==
LOC: JER 08:30 → JERBED 12:13 → J4W 15:15
PROVIDERS: ADMIT Internal Medicine; ATTEND Nurse Practitioner Family
DX: I11.0 Hypertensive heart disease with heart failure (principal); J44.1 Chronic obstructive pulmonary disease with (acute) exacerbation; I50.23 Acute on chronic systolic (congestive) heart failure; F17.210 Nicotine dependence, cigarettes, uncomplicated; I25.10 Atherosclerotic heart disease of native coronary artery without angina pectoris; Z98.61 Coronary angioplasty status; Z95.1 Presence of aortocoronary bypass graft; E78.5 Hyperlipidemia, unspecified; Z95.0 Presence of cardiac pacemaker; E87.6 Hypokalemia; R10.9 Unspecified abdominal pain; E11.9 Type 2 diabetes mellitus without complications; E03.9 Hypothyroidism, unspecified; F41.8 Other specified anxiety disorders; G62.9 Polyneuropathy, unspecified
CPT/HCPCS: 36415; 70450-TC; 71045-TC-FY; 74177-TC; 80053; 82550; 82553; 82962; 83690; 83735; 83880; 84100; 84443; 84484; 85025; 85610; 85730; 93005; 93010; 93306-TC; 94640; 94761; 97116-GP; 97161-GP; 99285-25

== ENCOUNTER 2017-11-26 22:21 | Inpatient (IN) | payer OTHER, BC ==
[2017-11-26] MEDS ORDERED: FUROSEMIDE 40 MG/4 ML INJECTABLE VIAL IVPUSH ONE (22:54)
[2017-11-26 23:16] LABS: VENOUS PH 7.37 (7.32-7.42); VENOUS PO2 20.6 mmHg (28-48)
[2017-11-26 23:17] LABS: BASO % 0.4 % (0-2.0); HEMOGLOBIN 11.1 GM/dL (10.7-15.3); LYMPH % 20.8 % (8-40); MCHC 32.6 g/dl (32.0-36.0); MEAN CELL VOLUME 85.9 fl (80-96); MEAN PLT VOLUME 8.9 fl (7.5-11.1); MONO % 18.9 % (3.8-10.2); NEUT % 59.9 % (42.8-82.8); PLATELET COUNT 178 K/MM3 (134-434); RBC 3.96 M/mm3 (3.60-5.2); RDW 16.9 % (11.6-15.6); WHITE BLOOD COUNT 4.6 K/mm3 (4.0-10.0)
--- NOTE | 2017-11-26 23:17 | PDOC ---
History of Present Illness - General Stated Complaint: SHORTNESS OF BREATH Time Seen by Provider: 11/26/17 22:47 History Source: Patient Exam Limitations: Clinical Condition - History of Present Illness Initial Comments: 11/26/17 23:17 The patient is a 62F with a PMH of HTN, HLD, DM, CAD status post MT 2003, CABG in 2003 with stents, systolic CHF s/p ICD pacemaker, COPD current smoker, hypothyroid who presents to the ER via EMS for shortness of breath. The patient is accompanied by her grandson who provides the history. The grandson states that the patient has had 4 months of worsening swelling and shortness of breath. The grandson states that he "finally convinced" his grandmother to come to the ER. The grandmother states that she does not feel well but does not provide any other history. Past History - Past Medical History Allergies/Adverse Reactions: Allergies Allergy/AdvReac Type Severity Reaction Status Date / Time aspirin Allergy Mild Rash Verified 11/26/17 23:35 banana Allergy Hives Verified 11/26/17 23:35 tomato Allergy Verified 11/26/17 23:35 Home Medications: Ambulatory Orders Albuterol 0.083% Nebulizer Stefanie [Ventolin 0.083% Nebulizer Soln -] 1 amp NEB Q4H #1 amp 08/02/17 Alcohol Antiseptic Pads [Alcohol Prep Pads] 1 each TP ACHS #1 box 08/02/17 Clopidogrel Bisulfate [Plavix -] 75 mg PO DAILY #30 tablet 08/02/17 Furosemide [Lasix] 80 mg PO BID #60 tablet 08/02/17 Lancets [Lancets Ultra Thin] 1 each MC ACHS #1 box 08/02/17 Levothyroxine [Synthroid -] 75 mcg PO DAILY@0700 30 Days #30 tablet 08/02/17 Metoprolol Succinate [Toprol XL -] 100 mg PO DAILY #30 tab.sr.24h 08/02/17 Miscellaneous Medical Supply [Glucometer Device] 1 each SQ ASDIR #1 kit [employer] [Glucometer Test Strips #100] 1 each SQ ASDIR #1 box 08/02/17 Nicotine Patch [Nicoderm Patch -] 21 mg TD DAILY patch 08/02/17 Potassium Chloride [K-Dur -] 40 meq PO DAILY #30 tablet.er 08/02/17 Polyethylene Glycol 3350 [Miralax 119 gm Btl -] 17 gm PO DAILY bottle 08/14/17 Sacubitril/Valsartan [Entresto 24 mg-26 mg Tablet] 1 tab PO BID #60 tablet 08/14 Anemia: No Asthma: Yes Cancer: No Cardiac Disorders: Yes (Stents, PM/Defib, STEMI, SYSTOLIC CHF,PULM HTN) CVA: No COPD: No CHF: Yes Dementia: No Diabetes: Yes GI Disorders: Yes Disorders: No HTN: Yes Hypercholesterolemia: Yes Kidney Stones: Yes Liver Disease: Yes Psychiatric Problems: Yes (depression.) Seizures: No Thyroid Disease: Yes (Hypo) - Surgical History Abdominal Surgery: Yes (hx of peg tube.) Appendectomy: No Cardiac Surgery: Yes (bypass,stent x2, CABG 2003, ICD/Pacer 12/02) Cholecystectomy: Yes (04/2016) Lung Surgery: (cabg 2003) Neurologic Surgery: No Orthopedic Surgery: Yes (Right THR) - Immunization History Immunization Up to Date: Yes - Suicide/Smoking/Psychosocial Hx Smoking Status: No Smoking History: Current every day smoker Have you smoked in the past 12 months: Yes Number of Cigarettes Smoked Daily: 4 'Breaking Loose' booklet given: 08/10/17 Hx Alcohol Use: No Drug/Substance Use Hx: No Substance Use Type: None Hx Substance Use Treatment: No Review of Systems - Review of Systems Able to Perform ROS?: No (clinical condition) *Physical Exam - Vital Signs Last Vital Signs Temp Pulse Resp BP Pulse Ox 97 11/26/17 22:42 - Physical Exam Comments: 11/27/17 00:24 GENERAL: Well developed, well nourished. Awake and alert. No acute distress. HEENT: Normocephalic, atraumatic. Hearing grossly normal. Moist mucous membranes. PERRLA, EOMI. No conjunctival pallor. Sclera are non-icteric. NECK: Supple. Full ROM. No JVD. CARDIOVASCULAR: Regular rate and rhythm. No murmurs, rubs, or gallops. PULMONARY: In respiratory distress with fine crackles at b/l lower lobes with decreased aeration appreciated. ABDOMINAL: Soft. Non-tender. Distended. No rebound or guarding. MUSCULOSKELETAL: Normal range of motion at all joints. No bony deformities or tenderness. EXTREMITIES: No cyanosis. No clubbing. 4+ pitting edema up to waist. 1-2+ up to mid-abdomen. No calf tenderness or swelling. SKIN: Warm and dry. Normal capillary refill. No rashes. No jaundice. NEURO: Normal speech. Gait is normal without ataxia. PSYCHIATRIC: Cooperative. Good eye contact. Appropriate mood and affect. ED Treatment Course - LABORATORY CBC & Chemistry Diagram: 11/26/17 23:08 11/26/17 23:08 - RADIOLOGY Radiology Studies Ordered: Category Date Time Status CHEST X-RAY PORTABLE* [RAD] Stat Radiology 11/26/17 22:52 Ordered Medical Decision Making - Medical Decision Making 11/27/17 00:27 The patient is a 62F with an extensive cardiopulmonary hx who presents to the ER with complaints of shortness of breath. Pt initially presented on CPAP via EMS, placed on Bipap in our facility. Bipap was removed and the pt's 5L home O2 was given with normoxic saturations. Pt is comfortable from a respiratory standpoint. She is found to be hypercarbic by VBG. BNP found to be elevated. Lasix 80mg IV given. CBC, CMP WNL. Trop indeterminate. Pt endorsed to Dr. Brown for admission for CHF exacerbation. *DC/Admit/Observation/Transfer Diagnosis at time of Disposition: Acute combined systolic and diastolic ACC/AHA stage C congestive heart failure CHF exacerbation Qualifiers: Heart failure type: combined systolic and diastolic Qualified Code(s): I50.43 - Acute on chronic combined systolic (congestive) and diastolic (congestive) heart failure - Discharge Dispostion Condition at time of disposition: Guarded Decision to Admit order: Yes - Referrals Referrals: Parrish Ferrer MD [Primary Care Provider] - - Patient Instructions - Post Discharge Activity
[2017-11-26 23:37] LABS: ALBUMIN 3.2 g/dl (3.4-5.0); ANION GAP 8 (8-16); BILIRUBIN,TOTAL 2.9 mg/dL (0.2-1.0); BLOOD UREA NITROGEN 8 mg/dL (7-18); CHLORIDE 97 mmol/L (98-107); CO2 35 mmol/L (21-32); CREATININE 0.7 mg/dL (0.55-1.02); GLUCOSE,RANDOM 58 mg/dL (74-106); POTASSIUM 3.3 mmol/L (3.5-5.1); SGOT/AST 42 U/L (15-37); SGPT/ALT 25 U/L (12-78); SODIUM 140 mmol/L (136-145); TOT PROT 7.8 g/dl (6.4-8.2)
[2017-11-26 23:40] LABS: ALK PHOS 112 U/L (45-117); N-TERMINAL BNP 3250.37 pg/ml (5-125)
--- NOTE | 2017-11-26 23:55 | PDOC ---
Attending Attestation - Resident Resident Name: Neo Wylie - ED Attending Attestation I have performed the following: I have examined & evaluated the patient, The case was reviewed & discussed with the resident, I agree w/resident's findings & plan, Exceptions are as noted - HPI HPI: 11/26/17 23:51 62 YO FEMALE BIBA for increasing LE edema and shortness of breath over several months -pt is oxygen dependent at home and family states she has been using 5 L o2 nasal cannula at home -pt was placed on BIPAP when she yonas arrived but now appears to be more alert and is moving air in all lungs ramirez - Physicial Exam PE: 11/26/17 23:55 62 yo female BIBA for dyspnea and LE edema head ncat neck JVD lungs moving air in all lungs ramirez cvs [id number] abd caput medusa , protuberant abd ext +3 pitting edema, tender to touch neuro [id number] pysch flat affect - Medical Decision Making 11/27/17 00:02 IMP CHF admit <Sandra Earl - Last Filed: 11/27/17 00:02> - HPI HPI: 11/27/17 00:36 The patient is a 62-year-old female with past medical history of HTN, HLD, CAD s /p UT 2004 s/p CABG and subsequent stents, Pulmonary HTN, DM with peripheral neuropathy, hypothyroid, kidney stones, cirrhosis, chronic back pain, OA, and diverticulosis presents to the emergency department via EMS in respiratory distress. As per the grandson present, the patient been experiencing progressively worsening shortness of breath for the past 4 months accompanied with bilateral lower extremity swelling. The patient refused to seek care, until today. Grandson reports patient is current on O2 at home. Allergies: Aspirin, banana and tomato. Social history: Patient is a current everyday smoker. Denies the use of alcohol or recreational drugs. Surgical history: CABG, stent, ICD/PPM 11/2014, PEG s/p reversal, and cholecystectomy 04/2016 PCP: Dr. Ferrer Shipwright: Dr. Cardenas - Medical Decision Making 11/27/17 00:36 Documentation prepared by Tina Dc, acting as medical library assistant for Sandra Earl MD. <Tina Dc - Last Filed: 11/27/17 00:36>
--- NOTE | 2017-11-27 00:42 | PN ---
Teaching Attending Note Name of Resident: Rosas Ibarra ATTENDING PHYSICIAN STATEMENT I saw and evaluated the patient. I reviewed the resident's note and discussed the case with the resident. I agree with the resident's findings and plan as documented. SUBJECTIVE: Patient is a 62 year old woman with a history of HTN, HLD, DM, CAD status post PA 2003, DVT, right hip replacement, CABG in 2003 with stents, systolic CHF s/p ICD pacemaker, COPD, current smoker, and hypothyroidism who presents to the ER via EMS for shortness of breath. The patient is accompanied by her grandson who provides the history. The grandson states that the patient has had 4 months of worsening swelling and shortness of breath. The grandson states that he " finally convinced" his grandmother to come to the ER. EMS treatd her with BIPAP and in the ER she was placed NC oxygen at 5L/min. Patient is complaining of LLQ abdominal pain that is intermittent - says it has been happening since her cholecystectomy 5 months ago. OBJECTIVE: Alert and still in respiratory distress Vital Signs Period Temp Pulse Resp BP Sys/Santoro Pulse Ox Last 24 Hr 96.6 F 85 18 128/76 97-98 HEENT: Puffy face. No Jaundice, eye redness or discharge, PERRLA, EOMI. Normocephalic, atraumatic. External ears are normal and hearing is grossly intact. No nasal discharge. Neck: Supple, nontender. No palpable adenopathy or thyromegaly. No JVD Chest: Good effort. Bibasilar wheeziing; no rales. Clear to auscultation and percussion. Heart: Regular. No S3 or rub; 2/6 BRITTNY Abdomen: Obese; Not distended, soft, nontender and no HSM. No rebound or guarding. Normoactive bowel sounds. Ext: Peripheral pulses intact. Tender lower legs with leg edema. Skin: Warm and dry. No petechiae, rash or ecchymosis. Neuro: Alert but sluggish. Oriented x3. CN 2-12 grossly intact. Sensation grossly intact in all four extremities and DTR are symmetric. Home Medications Medication Instructions Recorded Albuterol 0.083% Nebulizer Stefanie 1 amp NEB Q4H #1 amp 08/02/17 [Ventolin 0.083% Nebulizer Soln -] Alcohol Antiseptic Pads [Alcohol 1 each TP ACHS #1 box 08/02/17 Prep Pads] Clopidogrel Bisulfate [Plavix -] 75 mg PO DAILY #30 tablet 08/02/17 Furosemide [Lasix] 80 mg PO BID #60 tablet 08/02/17 Lancets [Lancets Ultra Thin] 1 each MC ACHS #1 box 08/02/17 Levothyroxine [Synthroid -] 75 mcg PO DAILY@0700 30 Days #30 08/02/17 tablet Metoprolol Succinate [Toprol XL -] 100 mg PO DAILY #30 tab.sr.24h 08/02/17 Miscellaneous Medical Supply 1 each SQ ASDIR #1 kit 08/02/17 [Glucometer Device] Miscellaneous Medical Supply 1 each SQ ASDIR #1 box 08/02/17 [Glucometer Test Strips #100] Nicotine Patch [Nicoderm Patch -] 21 mg TD DAILY patch 08/02/17 Potassium Chloride [K-Dur -] 40 meq PO DAILY #30 tablet.er 08/02/17 Polyethylene Glycol 3350 [Miralax 17 gm PO DAILY bottle 08/14/17 119 gm Btl -] Sacubitril/Valsartan [Entresto 24 1 tab PO BID #60 tablet 08/14/17 mg-26 mg Tablet] Abnormal Lab Results 11/26/17 11/26/17 11/26/17 23:08 23:08 23:08 RDW 16.9 H Monocytes % 18.9 H POC VBG pCO2 63.0 H* POC VBG pO2 20.6 L Mixed VBG HCO3 35.3 H Potassium 3.3 L Chloride 97 L Carbon Dioxide 35 H Random Glucose 58 L Total Bilirubin 2.9 H AST 42 H Creatine Kinase 363 H CK-MB (CK-2) 5.30 H Troponin I 0.06 H B-Natriuretic Peptide 3250.37 H Albumin 3.2 L ASSESSMENT AND PLAN: 1. CHF exacerbation - Her EF on 07/27/17 was 25.9% with severe global hypokinesis. Precipitating factor for decompensation is unclear, but nonadherence to medication regimen is a leading culprit since her family members help dispense her meds, and they are not always around. We will treat with IV lasix 80 mg bid, restrict dietary salt intake, obtain daily weight and consult cardiology. Troponin is elevated but no evidence of ACS on EKG. Will trend troponin and rule out ACS on Telemetry. Continue O2 therapy and treat her with Duoneb - wheezing with history of COPD. 2. Abnormal LFTs - Likely due to hepatic congestion, but will trend bilirubin. In view of recent cholecystectomy and LLQ pain will get sonogram of abdomen. If bilirubin fails to normalize, will get hepatitis serology. 3. Hypokalemia - Likely due to diuretic-induced excess renal losses and poor intake. Will check Mg+ level and give oral and IV KCL. 4. DM - Not on any medications for DM and had reportedly refused VNS to come and monitor her glucose at home. Will implement sliding scale insulin regimen. Provide comprehensive diabetes care with patient teaching and counseling about the importance of euglycemia, eye care and foot care. 5. Tobacco Use We will provide patient all the necessary assistance to facilitate smoking cessation and prescribe Nicotine patch. 6. DVT prophylaxis - Heparin 5000u sq tid. 7. Advance directives - Full code
[2017-11-27] MEDS ORDERED: POTASSIUM CHLORIDE 20 MEQ PREMIX IVPB 100 ML IVPB ONE (02:01)
[2017-11-27] MEDS: POTASSIUM CHLORIDE TABS 20 MEQ TABLET.ER (FP) PO SCH ×3 (02:16→12:07)
--- NOTE | 2017-11-27 02:16 | HP ---
CHIEF COMPLAINT: shortness of breath PCP: HISTORY OF PRESENT ILLNESS: 62 y/o female with PMH systolic CHF with EF 25% s/p ICD pacemaker, HTN, HLD, DM , COPD, hypothyroidism, CAD s/p CABG x2 and [place] 2003, presents with complaint of shortness of breath. Was previously admitted for similar complaints 07/2017. States this has been ongoing for months, and feels better with her home oxygen of 5L via nasal canula. She admits to 3 pillow orthopnea. She is able to walk less than one block, and less than one flight of stairs before becoming short of breath. She also complains of RLQ abdominal pain that began 5 months ago after a laparoscopic cholecystectomy. Describes pain as sharp, non radiating, and denies palliative features. Denies MOREAU, fevers, chills, chest pain, nausea, vomiting, diarrhea. ER course was notable for: (1) Troponins 0.06, BNP 3250, (2) 5L O2 nasal canula (3) Furosemide 80mg IV X1 Recent Travel: PAST MEDICAL HISTORY: PAST SURGICAL HISTORY: Social History: Smoking: admits Alcohol: denies Drugs: denies Family History: Allergies aspirin Allergy (Mild, Verified 11/26/17 23:35) Rash banana Allergy (Verified 11/26/17 23:35) Hives tomato Allergy (Verified 11/26/17 23:35) HOME MEDICATIONS: Home Medications Medication Instructions Recorded Albuterol 0.083% Nebulizer Stefanie 1 amp NEB Q4H #1 amp 08/02/17 [Ventolin 0.083% Nebulizer Soln -] Alcohol Antiseptic Pads [Alcohol 1 each TP ACHS #1 box 08/02/17 Prep Pads] Clopidogrel Bisulfate [Plavix -] 75 mg PO DAILY #30 tablet 08/02/17 Furosemide [Lasix] 80 mg PO BID #60 tablet 08/02/17 Lancets [Lancets Ultra Thin] 1 each ACHS #1 box 08/02/17 Levothyroxine [Synthroid -] 75 mcg PO DAILY@0700 30 Days #30 08/02/17 tablet Metoprolol Succinate [Toprol XL -] 100 mg PO DAILY #30 tab.sr.24h 08/02/17 Miscellaneous Medical Supply 1 each SQ ASDIR #1 kit 08/02/17 [Glucometer Device] Miscellaneous Medical Supply 1 each SQ ASDIR #1 box 08/02/17 [Glucometer Test Strips #100] Nicotine Patch [Nicoderm Patch -] 21 mg TD DAILY patch 08/02/17 Potassium Chloride [K-Dur -] 40 meq PO DAILY #30 tablet.er 08/02/17 Polyethylene Glycol 3350 [Miralax 17 gm PO DAILY bottle 08/14/17 119 gm Btl -] Sacubitril/Valsartan [Entresto 24 1 tab PO BID #60 tablet 08/14/17 mg-26 mg Tablet] REVIEW OF SYSTEMS CONSTITUTIONAL: Absent: fever, chills, diaphoresis, CARDIOVASCULAR: Admits: peripheral edema. Absent: chest pain, palpitations RESPIRATORY: Admits: cough, shortness of breath, dyspnea with exertion, orthopnea GASTROINTESTINAL: Admits: abdominal pain, abdominal distension. Denies: nausea, vomiting, diarrhea NEUROLOGIC: Absent: headache, focal weakness or paresthesias, dizziness PHYSICAL EXAMINATION Vital Signs - 24 hr 11/26/17 11/26/17 22:30 22:42 Temperature 96.6 F L Pulse Rate 85 Respiratory 18 Rate Blood Pressure 128/76 O2 Sat by Pulse 98 97 Oximetry (%) GENERAL: Awake, alert, and fully oriented, in mild distress. HEAD: Normal with no signs of trauma. EYES: Pupils equal, round and reactive to light, extraocular movements intact. LUNGS: Expiratory wheezes auscultated B/L. Prolonged expiratory phase of breathing. No accessory muscle use. HEART: Regular rate and rhythm, normal S1 and S2 without murmur, rub or gallop. ABDOMEN: Caput medusae observed. Tender to palpation RLQ. Normoactive bowel sounds. UPPER EXTREMITIES: 2+ pulses, warm, well-perfused. LOWER EXTREMITIES: 1+ DP pulses B/L. Erythematous, tender to palpation, and 3+ edematous legs B/L. NEUROLOGICAL: No focal deficits. Normal speech. Normal gait. PSYCHIATRIC: Cooperative. Appropriate mood and affect. Laboratory Results - last 24 hr 11/26/17 11/26/17 11/26/17 23:08 23:08 23:08 WBC 4.6 RBC 3.96 Hgb 11.1 Hct 34.0 MCV 85.9 MCH 28.0 MCHC 32.6 RDW 16.9 H Plt Count 178 MPV 8.9 Absolute Neuts (auto) 2.8 Neutrophils % 59.9 Lymphocytes % 20.8 Monocytes % 18.9 H Eosinophils % 0.0 Basophils % 0.4 Nucleated RBC % 0 VBG pH 7.37 POC VBG pCO2 63.0 H* POC VBG pO2 20.6 L Mixed VBG HCO3 35.3 H Sodium 140 Potassium 3.3 L Chloride 97 L Carbon Dioxide 35 H Anion Gap 8 BUN 8 Creatinine 0.7 Creat Clearance w eGFR > 60 Random Glucose 58 L Calcium 9.0 Total Bilirubin 2.9 H AST 42 H ALT 25 Alkaline Phosphatase 112 Creatine Kinase 363 H Creatine Kinase Index 1.4 CK-MB (CK-2) 5.30 H Troponin I 0.06 H B-Natriuretic Peptide 3250.37 H Total Protein 7.8 Albumin 3.2 L ASSESSMENT/PLAN: 62 y/o female with PMH systolic CHF with EF 25% s/p ICD pacemaker, HTN, HLD, DM , COPD, hypothyroidism, CAD s/p CABG x2 and [place] 2003, presents with complaint of shortness of breath. CHF exacerbation -Last echo EF 25%, severely dilated and hypertrophic LV -ECG showed 1st degree heart block with PVC -Elevated troponins 0.06 -F/U troponins -Reinstate Lasix, Entresto, Toprol XL -follow intake & outputs, daily weights Dyspnea -Continue oxygen nasal canula -Duonebs Q6 hours Hypokalemia -Likely secondary to diuretic -Oral KCl -IV KCl A9ursys X3 doses -F/U potassium level Abdominal Pain -AST 42, Bili 2.9 -F/U Abdominal U/S Hypothyroidism -Continue Synthroid DM -Insulin sliding scale -Fingerstick blood glucose monitoring Smoking -Nicotine patch Hypoalbuminemia -Assistant Golf Coach consult FEN No IV fluids at this time Oral KCl and IVKCl Q4 hours X 3 doses Diabetic/ Low sodium diet Disposition: admit to telemetry for monitoring Advance directives: Unclear. Full Code now, pending conversation with patient's grandson. Case discussed with entertainment production professional attending Rosas Ibarra DO PGY1 Visit type - Emergency Visit Emergency Visit: Yes ED Registration Date: 11/27/17 Care time: The patient presented to the Emergency Department on the above date and was hospitalized for further evaluation of their emergent condition. - New Patient This patient is new to me today: Yes Date on this admission: 11/27/17 - Critical Care Critical Care patient: No Hospitalist Screening - Colonoscopy Questionnaire Colonoscopy Questionnaire: Colonoscopy Questionnaire - Patient: 50 - 75 years old and never had a screening colonoscopy: Unknown History of colon or rectal polyps, or CA: Unknown History of IBD, Crohn's disease or UC: Unknown History of abdominal radiation therapy as a child: Unknown - Relative: 1 with colon or rectal CA, or polyps at age 60 or younger: Unknown Colon or rectal CA diagnosed at age 45 or younger: Unknown Multiple relatives with colon or rectal CA: Unknown - Outcome: Screening Result: Negative Screen
[2017-11-27] MEDS ORDERED: ALBUTEROL SO4 2.5/IPRATROPIUM 0.5 INH SOL 3 ML VIAL.NEB. NEB STA (03:27)
[2017-11-27] MEDS ORDERED: ALBUTEROL SO4 2.5/IPRATROPIUM 0.5 INH SOL 3 ML VIAL.NEB. NEB SCH (03:30)
[2017-11-27] MEDS ORDERED: FUROSEMIDE 40 MG TABLET (FP) PO SCH (06:00)
[2017-11-27] MEDS: INSULIN SLIDING SCALE (NOVOLOG) 1 VIAL SQ SCH ×4 (07:07→22:01)
[2017-11-27] MEDS: HEPARIN NA (PORCINE) 5,000 UNITS/ML 1ML VIAL SQ SCH ×3 (07:07→21:58)
[2017-11-27] MEDS: LEVOTHYROXINE NA 75 MCG TABLET (FP) PO SCH (07:08)
[2017-11-27] MEDS ORDERED: DEXTROSE 50%-WATER - 25 GM/50 ML VIAL IVPUSH ONE (07:16)
[2017-11-27] MEDS ORDERED: DEXTROSE 50%-WATER 25 GM/50 ML DISP.SYRIN ONE (08:32)
[2017-11-27] MEDS: ALBUTEROL SO4 2.5/IPRATROPIUM 0.5 INH SOL 3 ML VIAL.NEB. NEB SCH ×4 (08:38→20:43)
--- NOTE | 2017-11-27 11:49 | CON.CARD ---
Consult Consult Specialty:: cardiology Reason for Consultation:: dyspnea; LE edema bilaterally; hx severe systolic CHF - History of Present Illness Chief Complaint: Pt A&Ox3; SOB History of Present Illness: The patient is a 62 yr old black F with a PMH of HTN, HLD, DM, CAD status post [place] 2003, CABG in 2003 with stents, severe systolic CHF s/p ICD, COPD current smoker, hypothyroid who presents to the ER via EMS for shortness of breath. The patient is accompanied by her grandson who provides the history. The grandson states that the patient has had 4 months of worsening swelling and shortness of breath. The grandson states that he "finally convinced" his grandmother to come to the ER. The grandmother states that she does not feel well but does not provide any other history. Pt had self-reduced furosemide at home from 80 mg bid to 20 mg bid for the past ?few weeks. - History Source History Provided By: Patient, Family Member, Medical Record Limitations to Obtaining History: No Limitations (pt was seen in office yesterday; between pt and her daughter, full recent history was obtained) - Past Medical History FISH PACKER: Yes: Peripheral Neuropathy Cardio/Vascular: Yes: CAD (CABG 2003, stents x2, now with defibrillator), CHF ( biventricular failure, very poor LV function), Deep Vein Thrombosis, HTN, Hyperlipdemia, MO ([place] in 2003), Mitral Insufficiency, Murmur, Pulmonary Hypertension, Other (profound biventricular failure, AICD device, CABG 2003, subsequent stents) Pulmonary: Yes: Asthma, COPD Gastrointestinal: Yes: Diverticulosis, Other (Chronic abdominal pain and food intolerances. Had PEG placed 11/03 after suffering vocal cord damage ( EMS intubation). PEG was subsequently removed. ) Hepatobiliary: Yes: Cirrhosis (cardiac cirrhosis), Cholecystitis (s/p lap choly 05/05) Renal/: Yes: Renal Calculi Psych: Yes: Depression Musculoskeletal: Yes: Chronic low back pain, Osteoarthritis Endocrine: Yes: Hypothyroidism - Past Surgical History Past Surgical History: Yes: AICD, CABG, Cholecystectomy (05/05), Colonoscopy, Joint Replacement (right THR), Stent (X2) - Alcohol/Substance Use Hx Alcohol Use: No History of Substance Use: reports: None - Smoking History Smoking history: Current every day smoker Have you smoked in the past 12 months: Yes Aproximately how many cigarettes per day: 4 - Social History Usual Living Arrangement: Alone ADL: Independent 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 History of Recent Travel: No Home Medications - Allergies Allergies/Adverse Reactions: Allergies Allergy/AdvReac Type Severity Reaction Status Date / Time aspirin Allergy Mild Rash Verified 11/26/17 23:35 banana Allergy Hives Verified 11/26/17 23:35 tomato Allergy Verified 11/26/17 23:35 - Home Medications Home Medications: Ambulatory Orders Clopidogrel Bisulfate [Plavix -] 75 mg PO DAILY #30 tablet 08/02/17 Levothyroxine [Synthroid -] 75 mcg PO DAILY@0700 30 Days #30 tablet 08/02/17 Sacubitril/Valsartan [Entresto 24 mg-26 mg Tablet] 1 tab PO BID #60 tablet 08/14 Metoprolol Succinate 100 mg PO DAILY 11/27/17 Spironolactone 25 mg PO DAILY 11/27/17 Furosemide [Lasix] 80 mg PO DAILY 11/28/17 Family Disease History - Family Disease History Family Disease History: Diabetes: Sister (s/p CABG in her 50s), Heart Disease: Father (had unknown cancer), Mother (lived to ), Sister, CA: Father Review of Systems - Review of Systems Constitutional: reports: Loss of Appetite, Weakness Cardiovascular: reports: Edema, Shortness of Breath Respiratory: reports: SOB Gastrointestinal: reports: Abdominal Pain, Nausea Musculoskeletal: reports: Joint Pain, Muscle Pain, Muscle Weakness Neurological: reports: Weakness Psychiatric: reports: Anxiety, Depression, Panic - Risk Factors Known Risk Factors: Yes: Age, Diabetes Mellitus, Family History, Gender, Hypercholesterolemia, Hypertension, Physical Inactivity, Prior MO /Emb Stroke, Race, Smoking, Other (severe systolic CHF) Vital Signs: Vital Signs Temperature 96.6 F L 11/26/17 22:30 Pulse Rate 84 11/27/17 07:04 Respiratory Rate 16 11/27/17 07:04 Blood Pressure 128/85 11/27/17 07:04 O2 Sat by Pulse Oximetry (%) 95 11/27/17 07:04 Constitutional: Yes: Anxious Eyes: Yes: WNL Neck: Yes: Decreased ROM Respiratory: Yes: Diminished, Rales, SOB Gastrointestinal: Yes: Abdomen, Obese, Distention, Tenderness Renal/: No: Anuria JVD: Yes Carotid Bruit: No PMI: Displaced Heart Sounds: Yes: S1 (split), S3, S4 Murmur: Yes: Systolic Murmur, Grade 2 Musculoskeletal: Yes: Muscle Weakness Extremities: Yes: Cool Edema: Yes Edema: LLE: 4+, RLE: 4+ Peripheral Pulses WNL: Yes Neurological: Yes: Alert, Oriented, Unsteady Gait, Weakness Psychiatric: Yes: Other (anxiety/depression) - Other Data Labs, Other Data: CBC, BMP 11/26/17 23:08 11/26/17 23:08 Troponin, BNP 11/26/17 23:08 Troponin I 0.06 H B-Natriuretic Peptide 3250.37 H Troponin, BNP 11/26/17 23:08 Troponin I 0.06 H B-Natriuretic Peptide 3250.37 H Abnormal Lab Results 11/26/17 11/26/17 11/26/17 23:08 23:08 23:08 RDW 16.9 H Monocytes % 18.9 H POC VBG pCO2 63.0 H* POC VBG pO2 20.6 L Mixed VBG HCO3 35.3 H Potassium 3.3 L Chloride 97 L Carbon Dioxide 35 H Random Glucose 58 L Magnesium Total Bilirubin 2.9 H AST 42 H Creatine Kinase 363 H CK-MB (CK-2) 5.30 H Troponin I 0.06 H B-Natriuretic Peptide 3250.37 H Albumin 3.2 L 11/26/17 23:08 RDW Monocytes % POC VBG pCO2 POC VBG pO2 Mixed VBG HCO3 Potassium Chloride Carbon Dioxide Random Glucose Magnesium 1.5 L Total Bilirubin AST Creatine Kinase CK-MB (CK-2) Troponin I B-Natriuretic Peptide Albumin Prior Cardiac Procedures: CABG, Cardiac Catheterization, PTCA with Stent, Other (ICD) Ejection Fraction %: LVEF < 40 % Imaging - Results Chest X-ray: Image Reviewed (large heart; CHF) EKG: Image Reviewed (NSR: 1st degree AVB) Problem List - Problems (1) AICD (automatic cardioverter/defibrillator) present Code(s): Z95.810 - PRESENCE OF AUTOMATIC (IMPLANTABLE) CARDIAC DEFIBRILLATOR (2) Acute on chronic systolic and diastolic heart failure, NYHA class 3 Assessment/Plan: Continue Entresto, metoprolol, furosemide. Consider starting Aldactone in the future if BUn/Cr and electrolytes allow. F/u BUN/Cr, electrolytes, daily weight, Is and Os. Code(s): I50.43 - ACUTE ON CHRONIC COMBINED SYSTOLIC AND DIASTOLIC HRT FAIL (3) COPD (chronic obstructive pulmonary disease) Code(s): J44.9 - CHRONIC OBSTRUCTIVE PULMONARY DISEASE, UNSPECIFIED (4) Cigarette nicotine dependence Assessment/Plan: Pt refuses help to quit smoking. Code(s): F17.210 - NICOTINE DEPENDENCE, CIGARETTES, UNCOMPLICATED (5) Coronary artery disease Code(s): I25.10 - ATHSCL HEART DISEASE OF [place] CORONARY ARTERY W/O ANG PCTRS (6) Diabetes Code(s): E11.9 - TYPE 2 DIABETES MELLITUS WITHOUT COMPLICATIONS Qualifiers: Diabetes mellitus type: type 2 Diabetes mellitus marine oil terminal superintendent insulin use: with chcf use Diabetes mellitus complication status: with unspecified complications Qualified Code(s): E11.8 - Type 2 diabetes mellitus with unspecified complications (7) Fatty liver Code(s): K76.0 - FATTY (CHANGE OF) LIVER, NOT ELSEWHERE CLASSIFIED (8) Hyperlipidemia Assessment/Plan: statin; diet modification; weight loss. Code(s): E78.5 - HYPERLIPIDEMIA, UNSPECIFIED (9) Hypertension Code(s): I10 - ESSENTIAL (PRIMARY) HYPERTENSION (10) Hypothyroidism Code(s): E03.9 - HYPOTHYROIDISM, UNSPECIFIED (11) Peripheral neuropathy Code(s): G62.9 - POLYNEUROPATHY, UNSPECIFIED Qualifiers: Peripheral neuropathy type: polyneuropathy, unspecified Qualified Code(s): G62.9 - Polyneuropathy, unspecified (12) Sleep apnea Code(s): G47.30 - SLEEP APNEA, UNSPECIFIED (13) Status post THR (total hip replacement) Code(s): Z96.649 - PRESENCE OF UNSPECIFIED ARTIFICIAL HIP JOINT (14) Elevated liver function tests Assessment/Plan: mildly elevated; f/u serially with CHF treatment. Code(s): R94.5 - ABNORMAL RESULTS OF LIVER FUNCTION STUDIES (15) Hypokalemia Assessment/Plan: Replete electrolytes. Keep K 4-4.5; Mg 2-2.3; PO4 2.5-3.5. Code(s): E87.6 - HYPOKALEMIA
--- NOTE | 2017-11-27 12:01 | EKG ---
Test Reason : Blood Pressure : / mmHG Vent. Rate : 088 BPM Atrial Rate : 088 BPM P-R Int : 220 ms QRS Dur : 114 ms QT Int : 406 ms P-R-T Axes : 042 120 -42 degrees QTc Int : 491 ms SINUS RHYTHM WITH 1ST DEGREE A-V BLOCK WITH PREMATURE ATRIAL COMPLEXES WITH ABERRANT CONDUCTION LOW VOLTAGE QRS LEFT POSTERIOR FASCICULAR BLOCK T WAVE ABNORMALITY, CONSIDER INFERIOR ISCHEMIA ABNORMAL ECG Confirmed by MD TIRSO, DARLEEN ([id number]) on 11/27/2017 12:00:41 PM Referred By: Confirmed By:DARLEEN CHAHAL MD
[2017-11-27] MEDS: CLOPIDOGREL BISULFATE 75 MG TABLET (FP) PO SCH (12:07)
[2017-11-27] MEDS: NICOTINE 7 MG/24 HOURS TOPICAL PATCH TD SCH (12:07)
[2017-11-27] MEDS: SACUBITRIL/VALSARTAN 24 MG-26 MG TABLET PO SCH ×2 (12:07→21:57)
[2017-11-27 13:00] LABS: ALBUMIN 3.1 g/dl (3.4-5.0); ANION GAP 8 (8-16); BLOOD UREA NITROGEN 8 mg/dL (7-18); CALCIUM 8.4 mg/dL (8.5-10.1); CHLORIDE 98 mmol/L (98-107); CO2 34 mmol/L (21-32); GLUCOSE,RANDOM 61 mg/dL (74-106); MAGNESIUM 1.4 mg/dL (1.8-2.4); POTASSIUM 3.4 mmol/L (3.5-5.1); SODIUM 140 mmol/L (136-145)
[2017-11-27 13:06] LABS: ALK PHOS 108 U/L (45-117); BILIRUBIN,TOTAL 3.3 mg/dL (0.2-1.0); CREATININE 0.7 mg/dL (0.55-1.02); SGOT/AST 41 U/L (15-37); SGPT/ALT 21 U/L (12-78); TOT PROT 7.5 g/dl (6.4-8.2)
[2017-11-27] MEDS ORDERED: MAGNESIUM 4GM/H20 - 4 GM/100 ML IVPB IVPB ONE (14:30)
[2017-11-27] MEDS ORDERED: MAGNESIUM 1GM/D5W 100ML - 100 ML IVPB IVPB ONE (15:29)
[2017-11-27] MEDS ORDERED: FUROSEMIDE 40 MG/4 ML INJECTABLE VIAL ONE (15:33)
[2017-11-27] MEDS ORDERED: HEPARIN NA (PORCINE) 5,000 UNITS/ML 1ML VIAL ONE (15:33)
[2017-11-27] MEDS ORDERED: POTASSIUM CHLORIDE ORAL LIQUID 20 MEQ/15 ML PO ONE (16:00)
[2017-11-27] MEDS: FUROSEMIDE 100 MG/10 ML INJECTABLE VIAL IVPB SCH (16:08)
--- NOTE | 2017-11-27 16:35 | PN ---
Teaching Attending Note Name of Resident: Onesimo Simmons ATTENDING PHYSICIAN STATEMENT I saw and evaluated the patient. I reviewed the resident's note and discussed the case with the resident. I agree with the resident's findings and plan as documented. SUBJECTIVE:states she feels a little better since arrival. denies Cp, SOB, fever , chills, N/V/C/D. states she was only taking lasix 20mg po BID and not 80mg like instructed because she felt that it was too high of a dose. OBJECTIVE: Last Vital Signs Temp Pulse Resp BP Pulse Ox 96.6 F L 53 L 20 100/55 99 11/26/17 22:30 11/27/17 15:19 11/27/17 15:19 11/27/17 15:19 11/27/17 15:19 Intake & Output 11/24/17 11/25/17 11/26/17 11/27/17 23:59 23:59 23:59 23:59 Weight 200 lb General NAD CV S1 s2 RRR no murmur/rub/gallop Lungs crackles R base. decreased breath sounds L base Abdomen soft NT/ND Extremities 2+ pitting edema ASSESSMENT AND PLAN: 62 year old woman with a history of HTN, HLD, DM, CAD status post [place] 2003, DVT, right hip replacement, CABG in 2003 with stents, systolic CHF s/p ICD pacemaker , COPD, current smoker, and hypothyroidism who presents to the ER via EMS for shortness of breath and found to be in acute systolic CHF 1. acute on chronic systolic CHF- likely due to non-compliance. will obtain weight now that she moved to the floor. cont wiht lasix 80mg IV BID. echo pending. Strict I&O, daily weights. close electrolyte monitoring. will consult cardio as pt has very close relationship with marriage performer. cont with entresto, spirolactone,metoprolol 2. acute transaminitis- likely hepatic congestion. iwll monitor for now. consider RUQ u/s if does not improve 3. elevated troponins- initial 0.06. will trend. no EKG changes. likely due to demand. will need to d/w cardio when last iscemia workup was done. echo pending 4. hypokalemia- Kcl po 5. Hypomagnesemia- Mg po and IV 6. HTN- controlled. cont medications 7. dyslipidemia- on statin 8. DVT ppx- hep sq
[2017-11-27] MEDS ORDERED: MAGNESIUM OXIDE 400 MG TABLET (FP) PO ONE (17:00)
--- NOTE | 2017-11-27 19:01 | PN ---
Physical Exam: SUBJECTIVE: Patient seen and examined. Pt. 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 P also complained of intermittent abdominal pain and shortness of breath. Pt says she sleeps with 3 pillows at night. Pt. denies fever, chills, diarrhea, constipation or dysuria. Pt. is s/p cholecystectomy(2018) 4 months prior. Pt. admits to smoking 1 cigarette a day, down from a pack a week and to 50 years of smoking. OBJECTIVE: Vital Signs Period Temp Pulse Resp BP Sys/Santoro Pulse Ox Last 24 Hr 96.6 F 53-85 16-20 100-128/55-85 95-99 GENERAL: The patient is awake, alert, and fully oriented, in mild distress. NECK: No JVD b/l LUNGS: b/l crackles- limited d/t body habitus, labored breathing with conversation HEART: Regular rate and rhythm, S1, S2 ABDOMEN: Firm, diffusely tender, distended, normoactive bowel sounds EXTREMITIES: warm, well-perfused, 2+ edema. Laboratory Results - last 24 hr 11/26/17 11/26/17 11/26/17 23:08 23:08 23:08 WBC 4.6 RBC 3.96 Hgb 11.1 Hct 34.0 MCV 85.9 MCH 28.0 MCHC 32.6 RDW 16.9 H Plt Count 178 MPV 8.9 Absolute Neuts (auto) 2.8 Neutrophils % 59.9 Lymphocytes % 20.8 Monocytes % 18.9 H Eosinophils % 0.0 Basophils % 0.4 Nucleated RBC % 0 VBG pH 7.37 POC VBG pCO2 63.0 H* POC VBG pO2 20.6 L Mixed VBG HCO3 35.3 H Sodium 140 Potassium 3.3 L Chloride 97 L Carbon Dioxide 35 H Anion Gap 8 BUN 8 Creatinine 0.7 Creat Clearance w eGFR > 60 POC Glucometer Random Glucose 58 L Hemoglobin A1c % Calcium 9.0 Magnesium Total Bilirubin 2.9 H AST 42 H ALT 25 Alkaline Phosphatase 112 Creatine Kinase 363 H Creatine Kinase Index 1.4 CK-MB (CK-2) 5.30 H Troponin I 0.06 H B-Natriuretic Peptide 3250.37 H Total Protein 7.8 Albumin 3.2 L 11/26/17 11/27/17 11/27/17 23:08 07:02 08:36 WBC RBC Hgb Hct MCV MCH MCHC RDW Plt Count MPV Absolute Neuts (auto) Neutrophils % Lymphocytes % Monocytes % Eosinophils % Basophils % Nucleated RBC % VBG pH POC VBG pCO2 POC VBG pO2 Mixed VBG HCO3 Sodium Potassium Chloride Carbon Dioxide Anion Gap BUN Creatinine Creat Clearance w eGFR POC Glucometer 64.14724 101.78933 Random Glucose Hemoglobin A1c % Calcium Magnesium 1.5 L Total Bilirubin AST ALT Alkaline Phosphatase Creatine Kinase Creatine Kinase Index CK-MB (CK-2) Troponin I B-Natriuretic Peptide Total Protein Albumin 11/27/17 11/27/17 11/27/17 11:58 12:00 12:00 WBC RBC Hgb Hct MCV MCH MCHC RDW Plt Count MPV Absolute Neuts (auto) Neutrophils % Lymphocytes % Monocytes % Eosinophils % Basophils % Nucleated RBC % VBG pH POC VBG pCO2 POC VBG pO2 Mixed VBG HCO3 Sodium 140 Potassium 3.4 L Chloride 98 Carbon Dioxide 34 H Anion Gap 8 BUN 8 Creatinine 0.7 Creat Clearance w eGFR > 60 POC Glucometer 70.04520 Random Glucose 61 L Hemoglobin A1c % 5.4 Calcium 8.4 L Magnesium 1.4 L Total Bilirubin 3.3 H AST 41 H ALT 21 Alkaline Phosphatase 108 Creatine Kinase Creatine Kinase Index CK-MB (CK-2) Troponin I 0.04 B-Natriuretic Peptide Total Protein 7.5 Albumin 3.1 L Active Medications Current Medications Albuterol/Ipratropium (Duoneb -) 1 amp NEB RQID [facility] Last Admin: 11/27/17 16:39 Dose: Not Given Clopidogrel Bisulfate (Plavix -) 75 mg PO DAILY [facility] Last Admin: 11/27/17 12:07 Dose: 75 mg Furosemide (Lasix Injection -) 80 mg IVPB BID@0600,1400 [facility] Last Admin: 11/27/17 16:08 Dose: 80 mg Heparin Sodium (Porcine) (Heparin -) 5,000 unit SQ TID [facility] Last Admin: 11/27/17 16:08 Dose: Not Given Insulin Aspart (Novolog Vial Sliding Scale -) 1 vial SQ ACHS [facility]; Protocol Last Admin: 11/27/17 17:26 Dose: Not Given Levothyroxine Sodium (Synthroid -) 75 mcg PO DAILY@0700 [facility] Last Admin: 11/27/17 07:08 Dose: 75 mcg Metoprolol Succinate (Toprol Xl -) 100 mg PO DAILY [facility] Last Admin: 11/27/17 12:07 Dose: 100 mg Nicotine (Nicoderm Patch -) 7 mg TD DAILY [facility] Last Admin: 11/27/17 12:07 Dose: Not Given Sacubitril/Valsartan (Entresto 24 Mg-26 Mg Tablet) 1 tab PO BID [facility] Last Admin: 11/27/17 12:07 Dose: 1 tab Spironolactone (Aldactone -) 25 mg PO DAILY [facility] CXR(11/27/17): enlarged heart, decreased lung volume, congestion b/l Echo(07/2017): EF: 25%, severely dilated and hypertrophic LV, severe global hypokinesis of LV, Left and Right atrium moderately dilated, mod-severe MR, mod. pulmonic regurg. ASSESSMENT/PLAN: 62 y/o female with PMH systolic CHF with EF 25% s/p ICD pacemaker, HTN, HLD, DM , COPD, hypothyroidism, CAD s/p CABG x2 and [place] 2003, presents with complaint of shortness of breath. CHF exacerbation -Last echo EF 25%, severely dilated and hypertrophic LV -ECG showed 1st degree heart block with PVC -Elevated troponins 0.06 -Troponins x 2 negative -Reinstate Lasix, Entresto, Toprol XL -follow intake & outputs, daily weights Dyspnea -Continue oxygen 5L nasal canula -Duonebs Q6 hours Hypokalemia -Likely secondary to diuretic -Oral KCl -IV KCl [id number] X3 doses (11/27/17) -F/U potassium level Abdominal Pain -AST 42, Bili 2.9 -Abdominal U/S: R. Renal cyst 2.5cm, coarse echotexture suggestive of fatty infiltration or hepatocellular disease Hypothyroidism -Continue Synthroid DM -Insulin sliding scale -Fingerstick blood glucose monitoring Smoking -Nicotine patch Hypoalbuminemia -Fish Warden consult -likely 2/2 systolic CHF -elevated LFTs -appreciate abd. US FEN -No IV fluids at this time -Oral KCl and IVKCl Q4 hours X 3 doses -Diabetic/ Low sodium diet -Magnesium: 1.5 Dispo - patient lives at home by herself - no longer has VNS or home health aide - admit to tele Advance directives: Unclear. Full Code now, pending conversation with patient's grandson. Visit type - Emergency Visit Emergency Visit: No - New Patient This patient is new to me today: Yes Date on this admission: 11/27/17 - Critical Care Critical Care patient: No - Discharge Referral Referred to [facility] No
[2017-11-28] MEDS: FUROSEMIDE 100 MG/10 ML INJECTABLE VIAL IVPB SCH ×2 (06:17→15:05)
[2017-11-28] MEDS: HEPARIN NA (PORCINE) 5,000 UNITS/ML 1ML VIAL SQ SCH ×3 (06:17→21:26)
[2017-11-28] MEDS: LEVOTHYROXINE NA 75 MCG TABLET (FP) PO SCH (06:18)
[2017-11-28] MEDS: INSULIN SLIDING SCALE (NOVOLOG) 1 VIAL SQ SCH ×4 (06:28→21:27)
[2017-11-28 06:31] LABS: BASO % 0.6 % (0-2.0); HEMATOCRIT 35.5 % (32.4-45.2); HEMOGLOBIN 11.3 GM/dL (10.7-15.3); LYMPH % 19.1 % (8-40); MCHC 31.8 g/dl (32.0-36.0); MEAN PLT VOLUME 8.7 fl (7.5-11.1); MONO % 15.4 % (3.8-10.2); NEUT % 64.9 % (42.8-82.8); PLATELET COUNT 154 K/MM3 (134-434); RBC 4.03 M/mm3 (3.60-5.2); RDW 16.5 % (11.6-15.6); WHITE BLOOD COUNT 4.7 K/mm3 (4.0-10.0)
[2017-11-28 07:26] LABS: CHLORIDE 98 mmol/L (98-107); POTASSIUM 3.8 mmol/L (3.5-5.1); SODIUM 140 mmol/L (136-145)
[2017-11-28 07:39] LABS: ALBUMIN 3.1 g/dl (3.4-5.0); ALK PHOS 110 U/L (45-117); ANION GAP 8 (8-16); BILIRUBIN,TOTAL 3.7 mg/dL (0.2-1.0); BLOOD UREA NITROGEN 12 mg/dL (7-18); CALCIUM 8.5 mg/dL (8.5-10.1); CO2 34 mmol/L (21-32); GLUCOSE,RANDOM 51 mg/dL (74-106); MAGNESIUM 2.1 mg/dL (1.8-2.4); PHOSPHOROUS 3.3 mg/dL (2.5-4.9); SGOT/AST 39 U/L (15-37); SGPT/ALT 21 U/L (12-78); TOT PROT 7.4 g/dl (6.4-8.2)
[2017-11-28] MEDS ORDERED: DEXTROSE 50%-WATER - 25 GM/50 ML VIAL IVPUSH ONE (08:10)
[2017-11-28] MEDS: ALBUTEROL SO4 2.5/IPRATROPIUM 0.5 INH SOL 3 ML VIAL.NEB. NEB SCH ×4 (08:18→21:04)
[2017-11-28] MEDS ORDERED: PT OWN MED DRAWER 7, Y5N ONE (10:05)
[2017-11-28] MEDS: SACUBITRIL/VALSARTAN 24 MG-26 MG TABLET PO SCH ×2 (10:07→21:25)
[2017-11-28] MEDS: CLOPIDOGREL BISULFATE 75 MG TABLET (FP) PO SCH (10:07)
[2017-11-28] MEDS: SPIRONOLACTONE 25 MG TABLET (FP) PO SCH (10:07)
[2017-11-28] MEDS: NICOTINE 7 MG/24 HOURS TOPICAL PATCH TD SCH (10:12)
--- NOTE | 2017-11-28 10:36 | PN ---
Progress Note, Physician History of Present Illness: The patient is a 62 yr old black F with a PMH of HTN, HLD, DM, CAD status post [place] 2003, CABG in 2003 with stents, severe systolic CHF s/p ICD, COPD current smoker, hypothyroid who presents to the ER via EMS for shortness of breath. The patient is accompanied by her grandson who provides the history. The grandson states that the patient has had 4 months of worsening swelling and shortness of breath. The grandson states that he "finally convinced" his grandmother to come to the ER. The grandmother states that she does not feel well but does not provide any other history. Pt had self-reduced furosemide at home from 80 mg bid to 20 mg bid for the past ?few weeks. - Current Medication List Current Medications: Active Medications Albuterol/Ipratropium (Duoneb -) 1 amp NEB RQID [facility] Last Admin: 11/28/17 08:18 Dose: Not Given Clopidogrel Bisulfate (Plavix -) 75 mg PO DAILY [facility] Last Admin: 11/28/17 10:07 Dose: 75 mg Furosemide (Lasix Injection -) 80 mg IVPB BID@0600,1400 [facility] Last Admin: 11/28/17 06:17 Dose: 80 mg Heparin Sodium (Porcine) (Heparin -) 5,000 unit SQ TID [facility] Last Admin: 11/28/17 06:17 Dose: 5,000 unit Insulin Aspart (Novolog Vial Sliding Scale -) 1 vial SQ ACHS [facility]; Protocol Last Admin: 11/28/17 06:28 Dose: Not Given Levothyroxine Sodium (Synthroid -) 75 mcg PO DAILY@0700 [facility] Last Admin: 11/28/17 06:18 Dose: 75 mcg Metoprolol Succinate (Toprol Xl -) 100 mg PO DAILY [facility] Last Admin: 11/28/17 10:07 Dose: 100 mg Nicotine (Nicoderm Patch -) 7 mg TD DAILY [facility] Last Admin: 11/28/17 10:12 Dose: Not Given Sacubitril/Valsartan (Entresto 24 Mg-26 Mg Tablet) 1 tab PO BID [facility] Last Admin: 11/28/17 10:07 Dose: 1 tab Spironolactone (Aldactone -) 25 mg PO DAILY [facility] Last Admin: 11/28/17 10:07 Dose: 25 mg - Objective Vital Signs: Vital Signs Temperature 97.6 F 11/28/17 10:00 Pulse Rate 66 11/28/17 10:00 Respiratory Rate 18 11/28/17 10:00 Blood Pressure 126/66 11/28/17 10:00 O2 Sat by Pulse Oximetry (%) 98 11/27/17 21:00 Eyes: Yes: WNL, Conjunctiva Clear, EOM Intact HENT: Yes: WNL, Atraumatic, Normocephalic Neck: Yes: WNL, Supple, Trachea Midline Cardiovascular: Yes: WNL, Regular Rate and Rhythm Respiratory: Yes: WNL, Regular, CTA Bilaterally Gastrointestinal: Yes: WNL, Normal Bowel Sounds Genitourinary: Yes: WNL Musculoskeletal: Yes: WNL Extremities: Yes: WNL Edema: No Integumentary: Yes: WNL Neurological: Yes: WNL, Alert, Oriented ...Motor Strength: WNL Psychiatric: Yes: WNL Labs: CBC, BMP 11/28/17 05:30 11/28/17 05:30 Assessment/Plan - Problems (1) AICD (automatic cardioverter/defibrillator) present Code(s): Z95.810 - PRESENCE OF AUTOMATIC (IMPLANTABLE) CARDIAC DEFIBRILLATOR (2) Acute on chronic systolic and diastolic heart failure, NYHA class 3 Assessment/Plan: Continue Entresto, metoprolol, furosemide. Consider starting Aldactone in the future if BUn/Cr and electrolytes allow. F/u BUN/Cr, electrolytes, daily weight, Is and Os. Code(s): I50.43 - ACUTE ON CHRONIC COMBINED SYSTOLIC AND DIASTOLIC HRT FAIL (3) COPD (chronic obstructive pulmonary disease) Code(s): J44.9 - CHRONIC OBSTRUCTIVE PULMONARY DISEASE, UNSPECIFIED (4) Cigarette nicotine dependence Assessment/Plan: Pt refuses help to quit smoking. Code(s): F17.210 - NICOTINE DEPENDENCE, CIGARETTES, UNCOMPLICATED (5) Coronary artery disease Code(s): I25.10 - ATHSCL HEART DISEASE OF [place] CORONARY ARTERY W/O ANG PCTRS (6) Diabetes Code(s): E11.9 - TYPE 2 DIABETES MELLITUS WITHOUT COMPLICATIONS Qualifiers: Diabetes mellitus type: type 2 Diabetes mellitus intermediate accountant insulin use: with intermediate accountant use Diabetes mellitus complication status: with unspecified complications Qualified Code(s): E11.8 - Type 2 diabetes mellitus with unspecified complications (7) Fatty liver Code(s): K76.0 - FATTY (CHANGE OF) LIVER, NOT ELSEWHERE CLASSIFIED (8) Hyperlipidemia Assessment/Plan: statin; diet modification; weight loss. Code(s): E78.5 - HYPERLIPIDEMIA, UNSPECIFIED (9) Hypertension Code(s): I10 - ESSENTIAL (PRIMARY) HYPERTENSION (10) Hypothyroidism Code(s): E03.9 - HYPOTHYROIDISM, UNSPECIFIED (11) Peripheral neuropathy Code(s): G62.9 - POLYNEUROPATHY, UNSPECIFIED Qualifiers: Peripheral neuropathy type: polyneuropathy, unspecified Qualified Code(s): G62.9 - Polyneuropathy, unspecified (12) Sleep apnea Code(s): G47.30 - SLEEP APNEA, UNSPECIFIED (13) Status post THR (total hip replacement) Code(s): Z96.649 - PRESENCE OF UNSPECIFIED ARTIFICIAL HIP JOINT (14) Elevated liver function tests Assessment/Plan: mildly elevated; f/u serially with CHF treatment. Code(s): R94.5 - ABNORMAL RESULTS OF LIVER FUNCTION STUDIES (15) Hypokalemia Assessment/Plan: Replete electrolytes. Keep K 4-4.5; Mg 2-2.3; PO4 2.5-3.5. Code(s): E87.6 - HYPOKALEMIA
[2017-11-28 11:42] LABS: BILIRUBIN,DIRECT 2.3 mg/dL (0.0-0.2)
--- NOTE | 2017-11-28 12:17 | PN ---
Teaching Attending Note Name of Resident: Onesimo Simmons ATTENDING PHYSICIAN STATEMENT I saw and evaluated the patient. I reviewed the resident's note and discussed the case with the resident. I agree with the resident's findings and plan as documented. SUBJECTIVE:remains short of breath. states she did have any symptoms this morning but ate her breakfast without difficult. denies Cp, SOB, fever, chills, N/V/C/D OBJECTIVE: Last Vital Signs Temp Pulse Resp BP Pulse Ox 97.6 F 66 18 126/66 97 11/28/17 10:00 11/28/17 10:00 11/28/17 10:00 11/28/17 10:00 11/28/17 09:00 Intake & Output 11/25/17 11/26/17 11/27/17 11/28/17 23:59 23:59 23:59 23:59 Intake Total 360 180 Balance 360 180 Weight 200 lb 221 lb 3.2 oz 220 lb 12.8 oz General NAD CV S1 s2 RRR no murmur/rub/gallop Lungs crackles R base. decreased breath sounds L base Abdomen soft NT/ND +anasarca Extremities 2+ pitting edema ASSESSMENT AND PLAN: 62 year old woman with a history of HTN, HLD, DM, CAD status post CT 2003, DVT, right hip replacement, CABG in 2003 with stents, systolic CHF s/p ICD pacemaker , COPD, current smoker, and hypothyroidism who presents to the ER via EMS for shortness of breath and found to be in acute systolic CHF 1. acute on chronic systolic CHF- likely due to non-compliance. no singificant improvement since yesterday. will cont with current lasix dosing. consider adjusting if does not improve. re-started spirolactone today. echo pending. Strict I&O, daily weights. close electrolyte monitoring. cardio on board. cont with entresto, spirolactone,metoprolol 2. hypoglycemia- asymptomatic. A1c checked 5.4. given D50 with improvement. will cont with BGM. encourage po intake. switch diet to low salt as is not diabetic and has not been on hypoglycemics in a long time 3. acute transaminitis- likely hepatic congestion. RUG with nothing concerning. total bili remains elevated. no RUQ pain. would monitor for now 4. elevated troponins- 0.06 to 0.04. will f/u echo. no further workup at this time. 5. hypokalemia- Kcl po 6. Hypomagnesemia- resolved 7. HTN- controlled. cont medications 8. dyslipidemia- on statin 9. DVT ppx- hep sq
[2017-11-28] MEDS ORDERED: POTASSIUM CHLORIDE ORAL LIQUID 20 MEQ/15 ML PO ONE (14:00)
--- NOTE | 2017-11-28 16:33 | PN ---
Physical Exam: SUBJECTIVE: Patient seen and examined. Overnight pt. had low blood sugar and low electrolytes even w/ normal PO intake. Pt. was difficult to get her to take her meds. Pt. did not have fever. Pt was octavio to the 40's and had a few pauses over night on the telemetry strip but had normal BP. Pt. endorsed that she would like to walk more. OBJECTIVE: Vital Signs Period Temp Pulse Resp BP Sys/Santoro Pulse Ox Last 24 Hr 97.3 F-98.0 F 48-67 18-20 93-126/44-66 97-99 GENERAL: The patient is awake, alert, and fully oriented, in no acute distress. LUNGS: crackles diffusely, decreased respirations, no accessory muscle use. HEART: unable to assess d/t body habitus, no JVD ABDOMEN: firm, diffusely tender, less than yesterday, normoactive bowel sounds, slight guarding EXTREMITIES: warm, well-perfused, 1+ edema, no calf pain PSYCH: Normal mood, normal affect. SKIN: Warm, dry, normal turgor, no rashes or lesions noted Laboratory Results - last 24 hr 11/27/17 11/28/17 11/28/17 21:48 05:30 05:30 WBC 4.7 RBC 4.03 Hgb 11.3 Hct 35.5 MCV 88.0 MCH 28.0 MCHC 31.8 L RDW 16.5 H Plt Count 154 MPV 8.7 Absolute Neuts (auto) 3.0 Neutrophils % 64.9 Lymphocytes % 19.1 Monocytes % 15.4 H Eosinophils % 0.0 Basophils % 0.6 Nucleated RBC % 0 Sodium 140 Potassium 3.8 Chloride 98 Carbon Dioxide 34 H Anion Gap 8 BUN 12 Creatinine 1.0 Creat Clearance w eGFR 55.82 POC Glucometer 61 Random Glucose 51 L Calcium 8.5 Phosphorus 3.3 Magnesium 2.1 Total Bilirubin 3.7 H Direct Bilirubin 2.3 H AST 39 H ALT 21 Alkaline Phosphatase 110 Total Protein 7.4 Albumin 3.1 L Active Medications Current Medications Albuterol/Ipratropium (Duoneb -) 1 amp NEB RQID [facility] Last Admin: 11/28/17 15:56 Dose: Not Given Clopidogrel Bisulfate (Plavix -) 75 mg PO DAILY [facility] Last Admin: 11/28/17 10:07 Dose: 75 mg Furosemide (Lasix Injection -) 80 mg IVPB BID@0600,1400 [facility] Last Admin: 11/28/17 15:05 Dose: 80 mg Heparin Sodium (Porcine) (Heparin -) 5,000 unit SQ TID [facility] Last Admin: 11/28/17 15:22 Dose: Not Given Insulin Aspart (Novolog Vial Sliding Scale -) 1 vial SQ ACHS [facility]; Protocol Last Admin: 11/28/17 11:17 Dose: Not Given Levothyroxine Sodium (Synthroid -) 75 mcg PO DAILY@0700 [facility] Last Admin: 11/28/17 06:18 Dose: 75 mcg Metoprolol Succinate (Toprol Xl -) 100 mg PO DAILY [facility] Last Admin: 11/28/17 10:07 Dose: 100 mg Nicotine (Nicoderm Patch -) 7 mg TD DAILY [facility] Last Admin: 11/28/17 10:12 Dose: Not Given Sacubitril/Valsartan (Entresto 24 Mg-26 Mg Tablet) 1 tab PO BID [facility] Last Admin: 11/28/17 10:07 Dose: 1 tab Spironolactone (Aldactone -) 25 mg PO DAILY [facility] Last Admin: 11/28/17 10:07 Dose: 25 mg ASSESSMENT/PLAN: 62 y/o female with PMH systolic CHF with EF 25% s/p ICD pacemaker, HTN, HLD, DM , COPD, hypothyroidism, CAD s/p CABG x2 and PR 2003, presents with complaint of shortness of breath. CHF exacerbation -Last echo EF 25%, severely dilated and hypertrophic LV -ECG showed 1st degree heart block with PVC -Elevated troponins 0.06 -Troponins x 2 negative -Reinstate Lasix, Entresto, Toprol XL -follow intake & outputs, daily weights Dyspnea -Continue oxygen 5L nasal canula -Duonebs Q6 hours Hypokalemia -Likely secondary to diuretic -Oral KCl -IV KCl V0cigfg X3 doses (11/27/17) -F/U potassium level -given 40 meq K-Dur @ 15:05 Abdominal Pain -AST 42, Bili 2.9 -Abdominal U/S: R. Renal cyst 2.5cm, coarse echotexture suggestive of fatty infiltration or hepatocellular disease -reduced abdominal pain from admission Hypoglycemia -given D50w 25gm TWICE, last dose 10/29/17 AM -monitoring blood glucose q6h -if glucose below 50, repeat D50w 25gm dose? HTN - c/w Metoprolol - added aldactone Hypothyroidism -Continue Synthroid DM -Insulin sliding scale -Fingerstick blood glucose monitoring Smoking -Nicotine patch Hypoalbuminemia -Line Producer consult -likely 2/2 systolic CHF -elevated LFTs -appreciate abd. US FEN -No IV fluids at this time -Oral KCl and IVKCl Q4 hours X 3 doses (11/27/17)---> K+: 3.8 on rpt. AM labs (04/07)-->Given an additional 40meq at 15:05 (11/28/17) -Diabetic/ Low sodium diet -Magnesium: 1.5 (11/27/17)--> Given Mg Sulfate, M.1 on rpt labs (11/28/17) - resolved - Fluid restriction to 1L -Strict Is and Os Dispo - patient lives at home by herself - no longer has VNS or home health aide - admit to tele Visit type - Emergency Visit Emergency Visit: Yes ED Registration Date: 11/27/17 Care time: The patient presented to the Emergency Department on the above date and was hospitalized for further evaluation of their emergent condition. - New Patient This patient is new to me today: No - Critical Care Critical Care patient: No - Discharge Referral Referred to [facility] Med [facility] No
[2017-11-29] MEDS: FUROSEMIDE 100 MG/10 ML INJECTABLE VIAL IVPB SCH (06:15)
[2017-11-29] MEDS: LEVOTHYROXINE NA 75 MCG TABLET (FP) PO SCH (06:16)
[2017-11-29] MEDS: HEPARIN NA (PORCINE) 5,000 UNITS/ML 1ML VIAL SQ SCH ×3 (06:20→21:00)
[2017-11-29] MEDS: INSULIN SLIDING SCALE (NOVOLOG) 1 VIAL SQ SCH ×4 (06:21→22:07)
[2017-11-29 06:41] LABS: BASO % 0.6 % (0-2.0); HEMOGLOBIN 10.7 GM/dL (10.7-15.3); LYMPH % 21.5 % (8-40); MCH 28.2 pg (25.7-33.7); MCHC 32.4 g/dl (32.0-36.0); MEAN CELL VOLUME 86.9 fl (80-96); MEAN PLT VOLUME 8.4 fl (7.5-11.1); MONO % 18.2 % (3.8-10.2); NEUT % 59.7 % (42.8-82.8); PLATELET COUNT 151 K/MM3 (134-434); RDW 16.8 % (11.6-15.6); WHITE BLOOD COUNT 4.5 K/mm3 (4.0-10.0)
[2017-11-29 06:54] LABS: ALBUMIN 2.9 g/dl (3.4-5.0); ANION GAP 10 (8-16); BLOOD UREA NITROGEN 16 mg/dL (7-18); CALCIUM 8.5 mg/dL (8.5-10.1); CHLORIDE 107 mmol/L (98-107); CO2 35 mmol/L (21-32); CREATININE 1.1 mg/dL (0.55-1.02); GLUCOSE,RANDOM 60 mg/dL (74-106); PHOSPHOROUS 3.3 mg/dL (2.5-4.9); POTASSIUM 4.5 mmol/L (3.5-5.1); SGOT/AST 41 U/L (15-37); SGPT/ALT 21 U/L (12-78); SODIUM 152 mmol/L (136-145)
[2017-11-29 06:56] LABS: ALK PHOS 111 U/L (45-117); BILIRUBIN,TOTAL 2.9 mg/dL (0.2-1.0); TOT PROT 7.1 g/dl (6.4-8.2)
[2017-11-29] MEDS: ALBUTEROL SO4 2.5/IPRATROPIUM 0.5 INH SOL 3 ML VIAL.NEB. NEB SCH ×4 (07:38→20:52)
[2017-11-29] MEDS ORDERED: PT OWN MED DRAWER 7, Y5N ONE (09:00)
[2017-11-29] MEDS: CLOPIDOGREL BISULFATE 75 MG TABLET (FP) PO SCH (09:50)
[2017-11-29] MEDS: SPIRONOLACTONE 25 MG TABLET (FP) PO SCH (09:50)
[2017-11-29] MEDS: NICOTINE 7 MG/24 HOURS TOPICAL PATCH TD SCH (09:50)
[2017-11-29] MEDS: SACUBITRIL/VALSARTAN 24 MG-26 MG TABLET PO SCH ×2 (09:51→21:52)
--- NOTE | 2017-11-29 10:53 | PN ---
Progress Note, Physician Chief Complaint: Pt A&Ox3; no chest pain; c/o abdominal (umbilical) chronic sharp pains. Less dyspneic. History of Present Illness: The patient is a 62 yr old black F with a PMH of HTN, HLD, DM, CAD status post [place] 2003, CABG in 2003 with stents, severe systolic CHF s/p ICD, COPD current smoker, hypothyroid who presents to the ER via EMS for shortness of breath. The patient is accompanied by her grandson who provides the history. The grandson states that the patient has had 4 months of worsening swelling and shortness of breath. The grandson states that he "finally convinced" his grandmother to come to the ER. The grandmother states that she does not feel well but does not provide any other history. Pt had self-reduced furosemide at home from 80 mg bid to 20 mg bid for the past ?few weeks. - Current Medication List Current Medications: Active Medications Albuterol/Ipratropium (Duoneb -) 1 amp NEB RQID [facility] Last Admin: 11/29/17 07:38 Dose: 1 amp Clopidogrel Bisulfate (Plavix -) 75 mg PO DAILY [facility] Last Admin: 11/29/17 09:50 Dose: 75 mg Furosemide (Lasix Injection -) 80 mg IVPB BID@0600,1400 [facility] Last Admin: 11/29/17 06:15 Dose: 80 mg Heparin Sodium (Porcine) (Heparin -) 5,000 unit SQ TID [facility] Last Admin: 11/29/17 06:20 Dose: 5,000 unit Insulin Aspart (Novolog Vial Sliding Scale -) 1 vial SQ ACHS [facility]; Protocol Last Admin: 11/29/17 06:21 Dose: Not Given Levothyroxine Sodium (Synthroid -) 75 mcg PO DAILY@0700 [facility] Last Admin: 11/29/17 06:16 Dose: 75 mcg Metoprolol Succinate (Toprol Xl -) 100 mg PO DAILY [facility] Last Admin: 11/29/17 09:50 Dose: 100 mg Nicotine (Nicoderm Patch -) 7 mg TD DAILY [facility] Last Admin: 11/29/17 09:50 Dose: Not Given Sacubitril/Valsartan (Entresto 24 Mg-26 Mg Tablet) 1 tab PO BID [facility] Last Admin: 11/29/17 09:51 Dose: 1 tab Spironolactone (Aldactone -) 25 mg PO DAILY [facility] Last Admin: 11/29/17 09:50 Dose: 25 mg - Objective Vital Signs: Vital Signs Temperature 98.2 F 11/29/17 05:51 Pulse Rate 47 L 11/29/17 05:51 Respiratory Rate 20 11/29/17 05:51 Blood Pressure 106/57 11/29/17 05:51 O2 Sat by Pulse Oximetry (%) 96 11/28/17 21:00 Constitutional: Yes: Calm Eyes: Yes: WNL Cardiovascular: Yes: S1, S2 (split) Respiratory: Yes: Diminished Gastrointestinal: Yes: Abdomen, Obese, Distention, Other (large area of raised ? varicose veins periumbilically) ...Rectal Exam: Yes: Deferred Genitourinary: No: Anuria Musculoskeletal: Yes: Joint Stiffness Extremities: Yes: Cool Edema: Yes Edema: LLE: 1+, RLE: 1+ Peripheral Pulses WNL: Yes Labs: CBC, BMP 11/29/17 05:30 11/29/17 05:30 Problem List - Problems (1) AICD (automatic cardioverter/defibrillator) present Code(s): Z95.810 - PRESENCE OF AUTOMATIC (IMPLANTABLE) CARDIAC DEFIBRILLATOR (2) Acute on chronic systolic and diastolic heart failure, NYHA class 3 Assessment/Plan: Continue Entresto, metoprolol, furosemide; now also on spironolactone. F/u BUN/Cr, electrolytes, daily weight, Is and Os. Code(s): I50.43 - ACUTE ON CHRONIC COMBINED SYSTOLIC AND DIASTOLIC HRT FAIL (3) Cigarette nicotine dependence Assessment/Plan: Pt refuses help to quit smoking (though, today, says she will now agree to the nicotine patch). Code(s): F17.210 - NICOTINE DEPENDENCE, CIGARETTES, UNCOMPLICATED (4) COPD (chronic obstructive pulmonary disease) Code(s): J44.9 - CHRONIC OBSTRUCTIVE PULMONARY DISEASE, UNSPECIFIED (5) Coronary artery disease Code(s): I25.10 - ATHSCL HEART DISEASE OF [place] CORONARY ARTERY W/O ANG PCTRS (6) Diabetes Code(s): E11.9 - TYPE 2 DIABETES MELLITUS WITHOUT COMPLICATIONS Qualifiers: Diabetes mellitus type: type 2 Diabetes mellitus jail insulin use: with watermaster use Diabetes mellitus complication status: with unspecified complications Qualified Code(s): E11.8 - Type 2 diabetes mellitus with unspecified complications (7) Fatty liver Code(s): K76.0 - FATTY (CHANGE OF) LIVER, NOT ELSEWHERE CLASSIFIED (8) Hyperlipidemia Code(s): E78.5 - HYPERLIPIDEMIA, UNSPECIFIED (9) Hypertension Code(s): I10 - ESSENTIAL (PRIMARY) HYPERTENSION (10) Hypothyroidism Code(s): E03.9 - HYPOTHYROIDISM, UNSPECIFIED (11) Peripheral neuropathy Code(s): G62.9 - POLYNEUROPATHY, UNSPECIFIED Qualifiers: Peripheral neuropathy type: polyneuropathy, unspecified Qualified Code(s): G62.9 - Polyneuropathy, unspecified (12) Sleep apnea Code(s): G47.30 - SLEEP APNEA, UNSPECIFIED (13) Status post THR (total hip replacement) Code(s): Z96.649 - PRESENCE OF UNSPECIFIED ARTIFICIAL HIP JOINT (14) Elevated liver function tests Assessment/Plan: mildly elevated; f/u serially with CHF treatment. Code(s): R94.5 - ABNORMAL RESULTS OF LIVER FUNCTION STUDIES (15) Hypokalemia Code(s): E87.6 - HYPOKALEMIA (16) Chronic abdominal pain Assessment/Plan: consider f/u with GI; pt claims the pains started after surgery last year. Code(s): R10.9 - UNSPECIFIED ABDOMINAL PAIN; G89.29 - OTHER CHRONIC PAIN
--- NOTE | 2017-11-29 12:30 | PN ---
Teaching Attending Note Name of Resident: Onesimo Simmons ATTENDING PHYSICIAN STATEMENT I saw and evaluated the patient. I reviewed the resident's note and discussed the case with the resident. I agree with the resident's findings and plan as documented. SUBJECTIVE:states she is not currently having any abdominal pain. breathing has improved. refused to open eyes today during conversation. denies CP, SOB, fever , chills, N/V/C/D OBJECTIVE: Last Vital Signs Temp Pulse Resp BP Pulse Ox 98.2 F 47 L 20 106/57 96 11/29/17 05:51 11/29/17 05:51 11/29/17 05:51 11/29/17 05:51 11/28/17 21:00 Intake & Output 11/26/17 11/27/17 11/28/17 11/29/17 23:59 23:59 23:59 23:59 Intake Total 360 660 Balance 360 660 Weight 200 lb 221 lb 3.2 oz 220 lb 221 lb General NAD CV S1 s2 RRR no murmur/rub/gallop Lungs cta B/L no wheezing/rales/rhonchi Abdomen soft NT/ND +anasarca Extremities 1+ pitting edema ASSESSMENT AND PLAN: 62 year old woman with a history of HTN, HLD, DM, CAD status post [place] 2003, DVT, right hip replacement, CABG in 2003 with stents, systolic CHF s/p ICD pacemaker , COPD, current smoker, and hypothyroidism who presents to the ER via EMS for shortness of breath and found to be in acute systolic CHF 1. acute on chronic systolic CHF- likely due to non-compliance. clinically improved. however developing hypernatremia. will reduce lasix to 40mg BID, already received 80mg today and will hold evening dose. on spirolactone. Strict I&O, daily weights. close electrolyte monitoring. cardio on board. cont with entresto, spirolactone,metoprolol 2. hypoglycemia- asymptomatic. A1c checked 5.4. now resolved. 3. Hypernatremia- possible due to overdiuresis? will reduce lasix. 4. acute transaminitis- likely hepatic congestion. RUG with nothing concerning. total bili trending down. states she has intermittent abdominal pain around the umbilicus where she had surgery. but currently asymptomatic. can f/u wtih GI as outpatient 5. elevated troponins- 0.06 to 0.04. no further workup at this time. 6. hypokalemia- resolved 7. Hypomagnesemia- resolved 8. HTN- controlled. cont medications 9. dyslipidemia- on statin 10. DVT ppx- hep sq
[2017-11-29] MEDS ORDERED: FUROSEMIDE 40 MG/4 ML INJECTABLE VIAL ONE (14:24)
--- NOTE | 2017-11-29 17:55 | PN ---
Physical Exam: SUBJECTIVE: Patient seen and examined. Per nurse, Pt. urinates frequently in her diaper and takes her leads off at times because it "itches." Pt. feels less short of breath from yesterday. Pt. endorses passing urine and stool. Pt. still c/o diffuse abdominal pain which is intermittent. OBJECTIVE: Vital Signs Period Temp Pulse Resp BP Sys/Santoro Pulse Ox Last 24 Hr 97.4 F-98.2 F 47-58 20-20 106-126/57-76 96 GENERAL: The patient is awake, alert, and in no acute distress. LUNGS: Breath sounds equal, clear to auscultation bilaterally, no wheezes, no crackles, no accessory muscle use. HEART: abnormal rhythm, distant heart sounds ABDOMEN: Firm, distended, diffusely tender to palpation, moreso than yesterday/ EXTREMITIES: 2+ dorsal pulses, warm, well-perfused, 1+ edema, no calf pain. SKIN: Warm, dry, normal turgor, no rashes or lesions noted Laboratory Results - last 24 hr 11/28/17 11/28/17 11/29/17 17:24 21:24 05:30 WBC 4.5 RBC 3.80 Hgb 10.7 Hct 33.0 MCV 86.9 MCH 28.2 MCHC 32.4 RDW 16.8 H Plt Count 151 MPV 8.4 Absolute Neuts (auto) 2.7 Neutrophils % 59.7 Lymphocytes % 21.5 Monocytes % 18.2 H Eosinophils % 0.0 Basophils % 0.6 Nucleated RBC % 0 Sodium Potassium Chloride Carbon Dioxide Anion Gap BUN Creatinine Creat Clearance w eGFR POC Glucometer 82 74 Random Glucose Calcium Phosphorus Magnesium Total Bilirubin AST ALT Alkaline Phosphatase Total Protein Albumin 11/29/17 11/29/17 11/29/17 05:30 06:12 11:43 WBC RBC Hgb Hct MCV MCH MCHC RDW Plt Count MPV Absolute Neuts (auto) Neutrophils % Lymphocytes % Monocytes % Eosinophils % Basophils % Nucleated RBC % Sodium 152 H Potassium 4.5 Chloride 107 Carbon Dioxide 35 H Anion Gap 10 BUN 16 Creatinine 1.1 H Creat Clearance w eGFR 50.01 POC Glucometer 66 83 Random Glucose 60 L Calcium 8.5 Phosphorus 3.3 Magnesium 2.0 Total Bilirubin 2.9 H AST 41 H ALT 21 Alkaline Phosphatase 111 Total Protein 7.1 Albumin 2.9 L Active Medications Current Medications Albuterol/Ipratropium (Duoneb -) 1 amp NEB RQID [facility] Last Admin: 11/29/17 15:49 Dose: Not Given Clopidogrel Bisulfate (Plavix -) 75 mg PO DAILY [facility] Last Admin: 11/29/17 09:50 Dose: 75 mg Furosemide (Lasix Injection -) 40 mg IVPUSH BID@0600,1400 [facility] Last Admin: 11/29/17 14:33 Dose: 40 mg Heparin Sodium (Porcine) (Heparin -) 5,000 unit SQ TID [facility] Last Admin: 11/29/17 13:35 Dose: 5,000 unit Insulin Aspart (Novolog Vial Sliding Scale -) 1 vial SQ ACHS [facility]; Protocol Last Admin: 11/29/17 11:59 Dose: Not Given Levothyroxine Sodium (Synthroid -) 75 mcg PO DAILY@0700 [facility] Last Admin: 11/29/17 06:16 Dose: 75 mcg Metoprolol Succinate (Toprol Xl -) 100 mg PO DAILY [facility] Last Admin: 11/29/17 09:50 Dose: 100 mg Nicotine (Nicoderm Patch -) 7 mg TD DAILY [facility] Last Admin: 11/29/17 09:50 Dose: Not Given Sacubitril/Valsartan (Entresto 24 Mg-26 Mg Tablet) 1 tab PO BID [facility] Last Admin: 11/29/17 09:51 Dose: 1 tab Spironolactone (Aldactone -) 25 mg PO DAILY [facility] Last Admin: 11/29/17 09:50 Dose: 25 mg ASSESSMENT/PLAN: 62 y/o female with PMH systolic CHF with EF 25% s/p ICD pacemaker, HTN, HLD, DM , COPD, hypothyroidism, CAD s/p CABG x2 and [place] 2003, presents with complaint of shortness of breath. CHF exacerbation -Last echo EF 25%, severely dilated and hypertrophic LV -ECG showed 1st degree heart block with PVC -Elevated troponins 0.06 -Troponins x 2 negative -Adjusted Lasix IVP from 80 BID to 40 BID d/t rising Cr: 1.1 and rising sodium: 152? -follow intake & outputs, daily weights: Weight on admission: 100.335kgs , Weight(11/28/17): 99.79kgs; Weight(11/29/17): 100.244 kgs -discontinued cardiac monitoring Dyspnea -Continue oxygen 5L nasal canula -Duonebs Q6 hours -No orthopnea Hypokalemia -Likely secondary to diuretic -Oral KCl -IV KCl G6ltsob X3 doses (11/27/17) -F/U potassium level -given 40 meq K-Dur @ 15:05 Abdominal Pain -AST 42, Bili 2.9 -Abdominal U/S: R. Renal cyst 2.5cm, coarse echotexture suggestive of fatty infiltration or hepatocellular disease -reduced abdominal pain from admission Hypoglycemia -given D50w 25gm TWICE, last dose 10/29/17 AM -monitoring blood glucose q6h -glucose has been above 50 during the day, currently at 83 (11/29/17). -if glucose below 50, repeat D50w 25gm dose? HTN - c/w Metoprolol - added aldactone Hypothyroidism -Continue Synthroid DM -Insulin sliding scale -Fingerstick blood glucose monitoring Smoking -Nicotine patch Hypoalbuminemia -[employer]ing [employer] consult -likely 2/2 systolic CHF -elevated LFTs -appreciate abd. US FEN -No IV fluids at this time -Oral KCl and IVKCl Q4 hours X 3 doses (11/27/17)---> K+: 3.8 on rpt. AM labs (04/07)-->Given an additional 40meq at 15:05 (11/28/17) -Diabetic/ Low sodium diet -Magnesium: 1.5 (11/27/17)--> Given Mg Sulfate, M.1 on rpt labs (11/28/17) - resolved - Fluid restriction to 1L -Strict Is and Os Dispo - patient lives at home by herself - no longer has VNS or home health aide - admit to tele Visit type - Emergency Visit Emergency Visit: No - New Patient This patient is new to me today: No - Critical Care Critical Care patient: No - Discharge Referral Referred to [facility] Med P.C.: No
[2017-11-29] MEDS ORDERED: ACETAMINOPHEN 325 MG TABLET (FP) PO ONE (20:09)
[2017-11-30] MEDS: INSULIN SLIDING SCALE (NOVOLOG) 1 VIAL SQ SCH ×4 (06:34→21:28)
[2017-11-30] MEDS: HEPARIN NA (PORCINE) 5,000 UNITS/ML 1ML VIAL SQ SCH ×3 (06:34→21:28)
[2017-11-30] MEDS: ALBUTEROL SO4 2.5/IPRATROPIUM 0.5 INH SOL 3 ML VIAL.NEB. NEB SCH (07:54)
[2017-11-30 09:10] LABS: BLOOD UREA NITROGEN 20 mg/dL (7-18); CALCIUM 8.9 mg/dL (8.5-10.1); CHLORIDE 95 mmol/L (98-107); GLUCOSE,RANDOM 64 mg/dL (74-106); POTASSIUM 3.7 mmol/L (3.5-5.1); SODIUM 138 mmol/L (136-145)
[2017-11-30 09:14] LABS: ANION GAP 6 (8-16); CO2 37 mmol/L (21-32)
[2017-11-30 09:18] LABS: CREATININE 1.1 mg/dL (0.55-1.02)
[2017-11-30] MEDS ORDERED: PT OWN MED DRAWER 7, Y5N ONE (09:45)
[2017-11-30] MEDS ORDERED: FUROSEMIDE 40 MG/4 ML INJECTABLE VIAL IVPUSH ONE (10:00)
[2017-11-30] MEDS: NICOTINE 7 MG/24 HOURS TOPICAL PATCH TD SCH (10:08)
[2017-11-30] MEDS: SPIRONOLACTONE 25 MG TABLET (FP) PO SCH (10:08)
[2017-11-30] MEDS: SACUBITRIL/VALSARTAN 24 MG-26 MG TABLET PO SCH ×2 (10:08→21:28)
[2017-11-30] MEDS: CLOPIDOGREL BISULFATE 75 MG TABLET (FP) PO SCH (10:08)
--- NOTE | 2017-11-30 11:10 | PN ---
Physical Exam: SUBJECTIVE: Patient seen and examined. Pt. endorses having difficulty breathing overnight. Pt was sleeping with her bed flat overnight. Nurse endorses having a saturated gauze and some bleeding onto her gown when given Heparin SQ. I noticed that the O2 was on 3L, so I turned it up to 5L, Pt. endorsed some symptomatic relief. OBJECTIVE: Vital Signs Period Temp Pulse Resp BP Sys/Santoro Pulse Ox Last 24 Hr 97.5 F-98.2 F 52-59 18-20 96-121/46-76 95 GENERAL: The patient is awake, alert, and fully oriented, in mild distress LUNGS: mild respiratory distress, decrease bilateral respirations that were otherwise clear, no crackles, no wheezing HEART: very soft heart beat- limited d/t body habitus, No JVD. ABDOMEN: firm, nontender, distended, diffusely tender, normoactive bowel sounds EXTREMITIES: warm, well-perfused, 1+ edema. SKIN: Warm, dry, edematous Laboratory Results - last 24 hr 11/29/17 11/30/17 11/30/17 11:43 06:09 07:55 Sodium 138 Potassium 3.7 Chloride 95 L Carbon Dioxide 37 H Anion Gap 6 L BUN 20 H Creatinine 1.1 H Creat Clearance w eGFR 50.01 POC Glucometer 83 78 Random Glucose 64 L Calcium 8.9 Magnesium 2.0 Active Medications Current Medications Albuterol/Ipratropium (Duoneb -) 1 amp NEB Q6H PRN PRN Reason: SHORTNESS OF BREATH Clopidogrel Bisulfate (Plavix -) 75 mg PO DAILY [facility] Last Admin: 11/30/17 10:08 Dose: 75 mg Furosemide (Lasix Injection -) 40 mg IVPUSH DAILY@1400 [facility] Furosemide (Lasix Injection -) 80 mg IVPUSH DAILY@0600 [facility] Heparin Sodium (Porcine) (Heparin -) 5,000 unit SQ TID [facility] Last Admin: 11/30/17 06:34 Dose: 5,000 unit Insulin Aspart (Novolog Vial Sliding Scale -) 1 vial SQ ACHS [facility]; Protocol Last Admin: 11/30/17 06:34 Dose: Not Given Levothyroxine Sodium (Synthroid -) 75 mcg PO DAILY@0700 [facility] Last Admin: 11/29/17 06:16 Dose: 75 mcg Metoprolol Succinate (Toprol Xl -) 100 mg PO DAILY [facility] Last Admin: 11/30/17 10:08 Dose: 100 mg Nicotine (Nicoderm Patch -) 7 mg TD DAILY [facility] Last Admin: 11/30/17 10:08 Dose: Not Given Sacubitril/Valsartan (Entresto 24 Mg-26 Mg Tablet) 1 tab PO BID [facility] Last Admin: 11/30/17 10:08 Dose: 1 tab Spironolactone (Aldactone -) 25 mg PO DAILY [facility] Last Admin: 11/30/17 10:08 Dose: 25 mg Echo(07/2017): severely dilated and hypertrophic LV, EF:25%, severe global hypokinesis of LV, L.A. and R.A. moderately dilated, moderate-severe mitral regurgitation, moderate pulmonic valve regurgitation. ASSESSMENT/PLAN: 62 y/o female with PMH systolic CHF with EF 25% s/p ICD pacemaker, HTN, HLD, DM , COPD, hypothyroidism, CAD s/p CABG x2 and [place] 2003, presents with complaint of shortness of breath. CHF exacerbation -Last echo EF 25%, severely dilated and hypertrophic LV -ECG showed 1st degree heart block with PVC -Elevated troponins 0.06 -Troponins x 2 negative -Adjusted Lasix IVP from 80 BID to 40 BID(11/29/17) d/t rising Cr: 1.1 and rising sodium: 152. -follow intake & outputs, daily weights: Weight on admission: 100.335kgs; Weight (11/29/17): 100.244 kgs Weight Today(101.2 kg) -patient amenable to continued cardiac monitoring -Readjusted Lasix to 80mg IVP AM and 40 mg IVP PM d/t weight gain and b/c sodium decreased to 138 today (11/30/17) Dyspnea -Continue oxygen 5L nasal canula -Duonebs Q6 hours -Pt. endorses orthopnea today(11/30/17) Hypokalemia -Likely secondary to diuretic -Oral KCl -IV KCl F0fzupe X3 doses (11/27/17) -F/U potassium level -given 40 meq K-Dur @ 15:05 -resolved K+: 4.5 (11/29/17) -K+: 3.7 (11/30/17) Abdominal Pain -AST 42, Bili 2.9 -Abdominal U/S: R. Renal cyst 2.5cm, coarse echotexture suggestive of fatty infiltration or hepatocellular disease -reduced abdominal pain from admission Hypoglycemia -given D50w 25gm TWICE, last dose 10/29/17 AM -monitoring blood glucose q6h -glucose has been above 50 during the day, currently at 83 (11/29/17). -Glucose 60 (11/30/17) -if glucose below 50, repeat D50w 25gm dose? HTN - c/w Metoprolol - c/w aldactone Hypothyroidism -Continue Synthroid DM -Insulin sliding scale -Fingerstick blood glucose monitoring Smoking -Nicotine patch -Pt. has been refusing nicotine patch since admission til today (11/30/17) Hypoalbuminemia -Adjuster consult -likely 2/2 systolic CHF -elevated LFTs -appreciate abd. US FEN - No IV fluids at this time - Oral KCl and IVKCl Q4 hours X 3 doses (11/27/17)---> K+: 3.8 on rpt. AM labs ()-->Given an additional 40meq at 15:05 (11/28/17) - Diabetic/ Low sodium diet - Magnesium: 1.5 (11/27/17)--> Given Mg Sulfate, M.1 on rpt labs (11/28/17) - resolved - Fluid restriction to 1L - Strict Is and Os Dispo - patient lives at home by herself - no longer has VNS or home health aide - Pt. amenable to going to [facility] for rehabilitation or any other SNF EXCEPT [facility] Visit type - Emergency Visit Emergency Visit: Yes ED Registration Date: 11/27/17 Care time: The patient presented to the Emergency Department on the above date and was hospitalized for further evaluation of their emergent condition. - New Patient This patient is new to me today: No - Critical Care Critical Care patient: No - Discharge Referral Referred to [facility] Med P.C.: No
--- NOTE | 2017-11-30 11:38 | PN ---
Teaching Attending Note Name of Resident: Onesimo Simmons ATTENDING PHYSICIAN STATEMENT I saw and evaluated the patient. I reviewed the resident's note and discussed the case with the resident. I agree with the resident's findings and plan as documented. SUBJECTIVE:c/o orthopnea overnight. states breathing has improved now. denies Cp , SOB, fever,chills, cough, N/V/C/D OBJECTIVE: Last Vital Signs Temp Pulse Resp BP Pulse Ox 98.2 F 53 L 20 102/52 95 11/30/17 05:28 11/30/17 05:28 11/30/17 05:28 11/30/17 05:28 11/29/17 20:14 Intake & Output 11/27/17 11/28/17 11/29/17 11/30/17 23:59 23:59 23:59 23:59 Intake Total 360 660 480 120 Balance 360 660 480 120 Weight 221 lb 3.2 oz 220 lb 221 lb 222 lb 9.6 oz General NAD CV S1 s2 RRR no murmur/rub/gallop Lungs cta B/L no wheezing/rales/rhonchi Abdomen soft NT/ND +anasarca Extremities 1+ pitting edema ASSESSMENT AND PLAN: 62 year old woman with a history of HTN, HLD, DM, CAD status post [place] 2003, DVT, right hip replacement, CABG in 2003 with stents, systolic CHF s/p ICD pacemaker , COPD, current smoker, and hypothyroidism who presents to the ER via EMS for shortness of breath and found to be in acute systolic CHF 1. acute on chronic systolic CHF- likely due to non-compliance. +orthopnea. lasix reduced yesterday. will increase lasix today to 80mg in AM and 40mg in the evening.water restrict 1L. on spirolactone. Strict I&O, daily weights. close electrolyte monitoring. cardio on board. cont with entresto, spirolactone, metoprolol 2. hypoglycemia- asymptomatic. A1c checked 5.4. now resolved. can d/c BGM 3. Hypernatremia- believe it to be lab error as todays lab was normal. monitor. 4. acute transaminitis- likely hepatic congestion. RUG with nothing concerning. total bili trending down. states she has intermittent abdominal pain around the umbilicus where she had surgery. but currently asymptomatic. can f/u wtih GI as outpatient 5. elevated troponins- 0.06 to 0.04. no further workup at this time. 6. hypokalemia- resolved 7. Hypomagnesemia- resolved 8. HTN- controlled. cont medications 9. dyslipidemia- on statin 10. DVT ppx- hep sq 11. PT only walked 35ft and would benefit from JENIFER. spoke wt daughter present at bedside. updated on current plan. agrees with JENIFER placement. all questions answered.
--- NOTE | 2017-11-30 12:21 | PN ---
Progress Note, Physician History of Present Illness: The patient is a 62 yr old black F with a PMH of HTN, HLD, DM, CAD status post [place] 2003, CABG in 2003 with stents, severe systolic CHF s/p ICD, COPD current smoker, hypothyroid who presents to the ER via EMS for shortness of breath. The patient is accompanied by her grandson who provides the history. The grandson states that the patient has had 4 months of worsening swelling and shortness of breath. The grandson states that he "finally convinced" his grandmother to come to the ER. The grandmother states that she does not feel well but does not provide any other history. Pt had self-reduced furosemide at home from 80 mg bid to 20 mg bid for the past ?few weeks. - Current Medication List Current Medications: Active Medications Albuterol/Ipratropium (Duoneb -) 1 amp NEB Q6H PRN PRN Reason: SHORTNESS OF BREATH Clopidogrel Bisulfate (Plavix -) 75 mg PO DAILY [facility] Last Admin: 11/30/17 10:08 Dose: 75 mg Furosemide (Lasix Injection -) 40 mg IVPUSH DAILY@1400 [facility] Furosemide (Lasix Injection -) 80 mg IVPUSH DAILY@0600 [facility] Heparin Sodium (Porcine) (Heparin -) 5,000 unit SQ TID [facility] Last Admin: 11/30/17 06:34 Dose: 5,000 unit Insulin Aspart (Novolog Vial Sliding Scale -) 1 vial SQ ACHS [facility]; Protocol Last Admin: 11/30/17 11:24 Dose: Not Given Levothyroxine Sodium (Synthroid -) 75 mcg PO DAILY@0700 [facility] Last Admin: 11/29/17 06:16 Dose: 75 mcg Metoprolol Succinate (Toprol Xl -) 100 mg PO DAILY [facility] Last Admin: 11/30/17 10:08 Dose: 100 mg Nicotine (Nicoderm Patch -) 7 mg TD DAILY [facility] Last Admin: 11/30/17 10:08 Dose: Not Given Sacubitril/Valsartan (Entresto 24 Mg-26 Mg Tablet) 1 tab PO BID [facility] Last Admin: 11/30/17 10:08 Dose: 1 tab Spironolactone (Aldactone -) 25 mg PO DAILY [facility] Last Admin: 11/30/17 10:08 Dose: 25 mg - Objective Vital Signs: Vital Signs Temperature 98.4 F 11/30/17 10:00 Pulse Rate 52 L 11/30/17 10:00 Respiratory Rate 20 11/30/17 10:00 Blood Pressure 104/46 11/30/17 10:00 O2 Sat by Pulse Oximetry (%) 100 11/30/17 10:00 Eyes: Yes: WNL, Conjunctiva Clear, EOM Intact HENT: Yes: WNL, Atraumatic, Normocephalic Neck: Yes: WNL, Supple, Trachea Midline Cardiovascular: Yes: WNL, Regular Rate and Rhythm Respiratory: Yes: WNL, Regular, CTA Bilaterally Gastrointestinal: Yes: WNL, Normal Bowel Sounds Genitourinary: Yes: WNL Musculoskeletal: Yes: WNL Extremities: Yes: WNL Edema: Yes (anasarca) Integumentary: Yes: WNL Neurological: Yes: WNL, Alert, Oriented ...Motor Strength: WNL Psychiatric: Yes: WNL Labs: CBC, BMP 11/29/17 05:30 11/30/17 07:55 Assessment/Plan Problems (1) AICD (automatic cardioverter/defibrillator) present Code(s): Z95.810 - PRESENCE OF AUTOMATIC (IMPLANTABLE) CARDIAC DEFIBRILLATOR (2) Acute on chronic systolic and diastolic heart failure, NYHA class 3 Assessment/Plan: Continue Entresto, metoprolol, furosemide; now also on spironolactone. F/u BUN/Cr, electrolytes, daily weight, Is and Os. Code(s): I50.43 - ACUTE ON CHRONIC COMBINED SYSTOLIC AND DIASTOLIC HRT FAIL (3) Cigarette nicotine dependence Assessment/Plan: Pt refuses help to quit smoking (though, today, says she will now agree to the nicotine patch). Code(s): F17.210 - NICOTINE DEPENDENCE, CIGARETTES, UNCOMPLICATED (4) COPD (chronic obstructive pulmonary disease) Code(s): J44.9 - CHRONIC OBSTRUCTIVE PULMONARY DISEASE, UNSPECIFIED (5) Coronary artery disease Code(s): I25.10 - ATHSCL HEART DISEASE OF [place] CORONARY ARTERY W/O ANG PCTRS (6) Diabetes Code(s): E11.9 - TYPE 2 DIABETES MELLITUS WITHOUT COMPLICATIONS Qualifiers: Diabetes mellitus type: type 2 Diabetes mellitus prison insulin use: with prison use Diabetes mellitus complication status: with unspecified complications Qualified Code(s): E11.8 - Type 2 diabetes mellitus with unspecified complications (7) Fatty liver Code(s): K76.0 - FATTY (CHANGE OF) LIVER, NOT ELSEWHERE CLASSIFIED (8) Hyperlipidemia Code(s): E78.5 - HYPERLIPIDEMIA, UNSPECIFIED (9) Hypertension Code(s): I10 - ESSENTIAL (PRIMARY) HYPERTENSION (10) Hypothyroidism Code(s): E03.9 - HYPOTHYROIDISM, UNSPECIFIED (11) Peripheral neuropathy Code(s): G62.9 - POLYNEUROPATHY, UNSPECIFIED Qualifiers: Peripheral neuropathy type: polyneuropathy, unspecified Qualified Code(s): G62.9 - Polyneuropathy, unspecified (12) Sleep apnea Code(s): G47.30 - SLEEP APNEA, UNSPECIFIED (13) Status post THR (total hip replacement) Code(s): Z96.649 - PRESENCE OF UNSPECIFIED ARTIFICIAL HIP JOINT (14) Elevated liver function tests Assessment/Plan: mildly elevated; f/u serially with CHF treatment. Code(s): R94.5 - ABNORMAL RESULTS OF LIVER FUNCTION STUDIES (15) Hypokalemia Code(s): E87.6 - HYPOKALEMIA (16) Chronic abdominal pain Assessment/Plan: consider f/u with GI; pt claims the pains started after surgery last year. Code(s): R10.9 - UNSPECIFIED ABDOMINAL PAIN; G89.29 - OTHER CHRONIC PAIN
[2017-11-30] MEDS ORDERED: FUROSEMIDE 40 MG/4 ML INJECTABLE VIAL IVPUSH SCH (14:00)
[2017-11-30] MEDS: ALBUTEROL SO4 2.5/IPRATROPIUM 0.5 INH SOL 3 ML VIAL.NEB. NEB PRN (20:40)
[2017-12-01] MEDS: FUROSEMIDE 40 MG/4 ML INJECTABLE VIAL IVPUSH SCH (06:31)
[2017-12-01] MEDS: INSULIN SLIDING SCALE (NOVOLOG) 1 VIAL SQ SCH ×4 (06:31→21:17)
[2017-12-01] MEDS: LEVOTHYROXINE NA 75 MCG TABLET (FP) PO SCH (06:33)
[2017-12-01] MEDS: HEPARIN NA (PORCINE) 5,000 UNITS/ML 1ML VIAL SQ SCH ×3 (06:33→21:17)
[2017-12-01 09:04] LABS: ALK PHOS 111 U/L (45-117); BILIRUBIN,TOTAL 2.8 mg/dL (0.2-1.0); BLOOD UREA NITROGEN 24 mg/dL (7-18); CO2 36 mmol/L (21-32); CREATININE 1.2 mg/dL (0.55-1.02); GLUCOSE,RANDOM 67 mg/dL (74-106); MAGNESIUM 2.1 mg/dL (1.8-2.4); PHOSPHOROUS 3.7 mg/dL (2.5-4.9); SGOT/AST 43 U/L (15-37); SGPT/ALT 22 U/L (12-78); TOT PROT 7.4 g/dl (6.4-8.2)
[2017-12-01] MEDS ORDERED: PT OWN MED DRAWER 7, Y5N ONE ×3 (10:03→20:51)
[2017-12-01] MEDS: NICOTINE 7 MG/24 HOURS TOPICAL PATCH TD SCH (10:04)
[2017-12-01] MEDS: CLOPIDOGREL BISULFATE 75 MG TABLET (FP) PO SCH (10:04)
[2017-12-01] MEDS: SACUBITRIL/VALSARTAN 24 MG-26 MG TABLET PO SCH (10:04)
[2017-12-01] MEDS: SPIRONOLACTONE 25 MG TABLET (FP) PO SCH (10:04)
[2017-12-01 12:34] LABS: ANION GAP 7 (8-16); CHLORIDE 96 mmol/L (98-107); POTASSIUM 4.1 mmol/L (3.5-5.1); SODIUM 139 mmol/L (136-145)
--- NOTE | 2017-12-01 13:16 | PN ---
Progress Note (short form) - Note Progress Note: states breathing is slightly better today. denies CP, SOB, fever, chills, N/v/C/ D Current Medications Generic Name Dose Route Start Last Admin Trade Name Fremushtaq PRN Reason Stop Dose Admin Albuterol/Ipratropium 1 amp 11/30/17 09:37 11/30/17 20:40 Duoneb - NEB 1 amp Q6H PRN Administration SHORTNESS OF BREATH Clopidogrel Bisulfate 75 mg 11/27/17 10:00 12/01/17 10:04 Plavix - PO 75 mg DAILY [facility] Administration Furosemide 40 mg 12/01/17 14:00 Lasix Injection - IVPUSH DAILY@1400 [facility] Furosemide 80 mg 12/01/17 06:00 12/01/17 06:31 Lasix Injection - IVPUSH 80 mg DAILY@0600 [facility] Administration Heparin Sodium (Porcine) 5,000 unit 11/27/17 06:00 12/01/17 06:33 Heparin - SQ 5,000 unit TID [facility] Administration Insulin Aspart 1 vial 11/27/17 07:00 12/01/17 11:18 Novolog Vial Sliding Scale - SQ Not Given ACHS [facility] Protocol Levothyroxine Sodium 75 mcg 11/27/17 07:00 12/01/17 06:33 Synthroid - PO 75 mcg DAILY@0700 [facility] Administration Metoprolol Succinate 100 mg 11/27/17 10:00 12/01/17 10:04 Toprol Xl - PO 100 mg DAILY [facility] Administration Nicotine 7 mg 11/27/17 10:00 12/01/17 10:04 Nicoderm Patch - TD 7 mg DAILY [facility] Administration Sacubitril/Valsartan 1 tab 11/27/17 10:00 12/01/17 10:04 Entresto 24 Mg-26 Mg Tablet PO 1 tab BID [facility] Administration Spironolactone 25 mg 11/28/17 10:00 12/01/17 10:04 Aldactone - PO 25 mg DAILY [facility] Administration Last Vital Signs Temp Pulse Resp BP Pulse Ox 97.8 F 57 L 18 94/56 95 12/01/17 09:00 12/01/17 09:00 12/01/17 09:00 12/01/17 09:00 11/30/17 22:00 Intake & Output 11/28/17 11/29/17 11/30/17 12/01/17 23:59 23:59 23:59 23:59 Intake Total 660 480 460 250 Balance 660 480 460 250 Weight 220 lb 221 lb 222 lb 9.6 oz 223 lb 8 oz General NAD CV S1 s2 RRR no murmur/rub/gallop Lungs cta B/L no wheezing/rales/rhonchi Abdomen soft NT/ND +anasarca Extremities 1+ pitting edema CBCD WBC 4.5 K/mm3 (4.0-10.0) 11/29/17 05:30 RBC 3.80 M/mm3 (3.60-5.2) 11/29/17 05:30 Hgb 10.7 GM/dL (10.7-15.3) 11/29/17 05:30 Hct 33.0 % (32.4-45.2) 11/29/17 05:30 MCV 86.9 fl (80-96) 11/29/17 05:30 MCHC 32.4 g/dl (32.0-36.0) 11/29/17 05:30 RDW 16.8 % (11.6-15.6) H 11/29/17 05:30 Plt Count 151 K/MM3 (134-434) 11/29/17 05:30 MPV 8.4 fl (7.5-11.1) 11/29/17 05:30 CMP Sodium 139 mmol/L (136-145) 12/01/17 05:30 Potassium 4.1 mmol/L (3.5-5.1) 12/01/17 05:30 Chloride 96 mmol/L (98-107) L 12/01/17 05:30 Carbon Dioxide 36 mmol/L (21-32) H 12/01/17 05:30 Anion Gap 7 (8-16) L 12/01/17 05:30 BUN 24 mg/dL (7-18) H 12/01/17 05:30 Creatinine 1.2 mg/dL (0.55-1.02) H 12/01/17 05:30 Creat Clearance w eGFR 45.23 (>60) 12/01/17 05:30 Calcium 9.0 mg/dL (8.5-10.1) 12/01/17 05:30 Total Bilirubin 2.8 mg/dL (0.2-1.0) H 12/01/17 05:30 AST 43 U/L (15-37) H 12/01/17 05:30 ALT 22 U/L (12-78) 12/01/17 05:30 Alkaline Phosphatase 111 U/L (45-117) 12/01/17 05:30 Total Protein 7.4 g/dl (6.4-8.2) 12/01/17 05:30 Albumin 3.0 g/dl (3.4-5.0) L 12/01/17 05:30 ASSESSMENT AND PLAN: 62 year old woman with a history of HTN, HLD, DM, CAD status post [place] 2003, DVT, right hip replacement, CABG in 2003 with stents, systolic CHF s/p ICD pacemaker , COPD, current smoker, and hypothyroidism who presents to the ER via EMS for shortness of breath and found to be in acute systolic CHF 1. acute on chronic systolic CHF- likely due to non-compliance. states its better. no signifcant change on exam however weight is going up. will cont with current lasix dosing but will need to liekly transition to po.water restrict 1L. on spirolactone. Strict I&O, daily weights. close electrolyte monitoring. cardio on board. cont with entresto, spirolactone,metoprolol 2. hypoglycemia- asymptomatic. A1c checked 5.4. now resolved. 3. Hypernatremia- believe it to be lab error as todays lab was normal. monitor. 4. acute transaminitis- likely hepatic congestion. RUG with nothing concerning. total bili trending down. states she has intermittent abdominal pain around the umbilicus where she had surgery. but currently asymptomatic. can f/u wtih GI as outpatient 5. elevated troponins- 0.06 to 0.04. no further workup at this time. 6. hypokalemia- resolved 7. Hypomagnesemia- resolved 8. HTN- controlled. cont medications 9. dyslipidemia- on statin 10. DVT ppx- hep sq 11. will benefit from JENIFER and cardiac rehab on discharge Visit type - Emergency Visit Emergency Visit: Yes ED Registration Date: 11/27/17 Care time: The patient presented to the Emergency Department on the above date and was hospitalized for further evaluation of their emergent condition. - New Patient This patient is new to me today: No - Critical Care Critical Care patient: No - Discharge Referral Referred to [facility] Med P.C.: No
[2017-12-01] MEDS ORDERED: FUROSEMIDE 40 MG/4 ML INJECTABLE VIAL IVPUSH SCH (14:00)
[2017-12-01] MEDS ORDERED: FUROSEMIDE 40 MG/4 ML INJECTABLE VIAL IVPUSH ONE (16:00)
--- NOTE | 2017-12-01 16:53 | PN ---
Progress Note, Physician History of Present Illness: The patient is a 62 yr old black F with a PMH of HTN, HLD, DM, CAD status post [place] 2003, CABG in 2003 with stents, severe systolic CHF s/p ICD, COPD current smoker, hypothyroid who presents to the ER via EMS for shortness of breath. The patient is accompanied by her grandson who provides the history. The grandson states that the patient has had 4 months of worsening swelling and shortness of breath. The grandson states that he "finally convinced" his grandmother to come to the ER. The grandmother states that she does not feel well but does not provide any other history. Pt had self-reduced furosemide at home from 80 mg bid to 20 mg bid for the past ?few weeks. - Current Medication List Current Medications: Active Medications Albuterol/Ipratropium (Duoneb -) 1 amp NEB Q6H PRN PRN Reason: SHORTNESS OF BREATH Last Admin: 11/30/17 20:40 Dose: 1 amp Clopidogrel Bisulfate (Plavix -) 75 mg PO DAILY [facility] Last Admin: 12/01/17 10:04 Dose: 75 mg Furosemide (Lasix Injection -) 40 mg IVPUSH DAILY@1400 [facility] Last Admin: 12/01/17 13:51 Dose: 40 mg Furosemide (Lasix Injection -) 80 mg IVPUSH DAILY@0600 [facility] Last Admin: 12/01/17 06:31 Dose: 80 mg Heparin Sodium (Porcine) (Heparin -) 5,000 unit SQ TID [facility] Last Admin: 12/01/17 13:51 Dose: Not Given Insulin Aspart (Novolog Vial Sliding Scale -) 1 vial SQ [facility]; Protocol Last Admin: 12/01/17 11:18 Dose: Not Given Levothyroxine Sodium (Synthroid -) 75 mcg PO DAILY@0700 [facility] Last Admin: 12/01/17 06:33 Dose: 75 mcg Metoprolol Succinate (Toprol Xl -) 100 mg PO DAILY [facility] Last Admin: 12/01/17 10:04 Dose: 100 mg Nicotine (Nicoderm Patch -) 7 mg TD DAILY [facility] Last Admin: 12/01/17 10:04 Dose: 7 mg Sacubitril/Valsartan (Entresto 24 Mg-26 Mg Tablet) 1 tab PO BID [facility] Last Admin: 12/01/17 10:04 Dose: 1 tab Spironolactone (Aldactone -) 25 mg PO DAILY [facility] Last Admin: 12/01/17 10:04 Dose: 25 mg - Objective Vital Signs: Vital Signs Temperature 98 F 12/01/17 14:10 Pulse Rate 64 12/01/17 14:10 Respiratory Rate 18 12/01/17 14:10 Blood Pressure 113/59 12/01/17 14:10 O2 Sat by Pulse Oximetry (%) 96 12/01/17 09:00 Labs: CBC, BMP 11/29/17 05:30 12/01/17 05:30 Problem List - Problems (1) AICD (automatic cardioverter/defibrillator) present Code(s): Z95.810 - PRESENCE OF AUTOMATIC (IMPLANTABLE) CARDIAC DEFIBRILLATOR (2) Acute on chronic systolic and diastolic heart failure, NYHA class 3 Assessment/Plan: Continue Entresto (will increase the dose), metoprolol; now also on spironolactone. F/u BUN/Cr, electrolytes, daily weight, Is and Os. Continue furosemide (80 mg IVP bid). Code(s): I50.43 - ACUTE ON CHRONIC COMBINED SYSTOLIC AND DIASTOLIC HRT FAIL (3) Cigarette nicotine dependence Code(s): F17.210 - NICOTINE DEPENDENCE, CIGARETTES, UNCOMPLICATED (4) COPD (chronic obstructive pulmonary disease) Code(s): J44.9 - CHRONIC OBSTRUCTIVE PULMONARY DISEASE, UNSPECIFIED (5) Coronary artery disease Code(s): I25.10 - ATHSCL HEART DISEASE OF [place] CORONARY ARTERY W/O ANG PCTRS (6) Diabetes Code(s): E11.9 - TYPE 2 DIABETES MELLITUS WITHOUT COMPLICATIONS Qualifiers: Diabetes mellitus type: type 2 Diabetes mellitus alf insulin use: with alf use Diabetes mellitus complication status: with unspecified complications Qualified Code(s): E11.8 - Type 2 diabetes mellitus with unspecified complications (7) Fatty liver Code(s): K76.0 - FATTY (CHANGE OF) LIVER, NOT ELSEWHERE CLASSIFIED (8) Hyperlipidemia Code(s): E78.5 - HYPERLIPIDEMIA, UNSPECIFIED (9) Hypertension Code(s): I10 - ESSENTIAL (PRIMARY) HYPERTENSION (10) Hypothyroidism Code(s): E03.9 - HYPOTHYROIDISM, UNSPECIFIED (11) Peripheral neuropathy Code(s): G62.9 - POLYNEUROPATHY, UNSPECIFIED Qualifiers: Peripheral neuropathy type: polyneuropathy, unspecified Qualified Code(s): G62.9 - Polyneuropathy, unspecified (12) Sleep apnea Code(s): G47.30 - SLEEP APNEA, UNSPECIFIED (13) Status post THR (total hip replacement) Code(s): Z96.649 - PRESENCE OF UNSPECIFIED ARTIFICIAL HIP JOINT (14) Elevated liver function tests Code(s): R94.5 - ABNORMAL RESULTS OF LIVER FUNCTION STUDIES (15) Hypokalemia Code(s): E87.6 - HYPOKALEMIA (16) Chronic abdominal pain Code(s): R10.9 - UNSPECIFIED ABDOMINAL PAIN; G89.29 - OTHER CHRONIC PAIN
[2017-12-01] MEDS ORDERED: SACUBITRIL/VALSARTAN 24 MG-26 MG TABLET PO ONE (17:30)
[2017-12-01] MEDS: ACETAMINOPHEN 325 MG TABLET (FP) PO PRN (21:19)
[2017-12-01] MEDS: SACUBITRIL/VALSARTAN 49 MG-51 MG TABLET PO SCH (21:21)
[2017-12-02] MEDS: INSULIN SLIDING SCALE (NOVOLOG) 1 VIAL SQ SCH (06:09)
[2017-12-02] MEDS: FUROSEMIDE 40 MG/4 ML INJECTABLE VIAL IVPUSH SCH (06:19)
[2017-12-02] MEDS: HEPARIN NA (PORCINE) 5,000 UNITS/ML 1ML VIAL SQ SCH ×3 (06:19→22:13)
[2017-12-02] MEDS: LEVOTHYROXINE NA 75 MCG TABLET (FP) PO SCH (06:19)
[2017-12-02 07:19] LABS: ANION GAP 8 (8-16); BLOOD UREA NITROGEN 26 mg/dL (7-18); CALCIUM 8.7 mg/dL (8.5-10.1); CHLORIDE 97 mmol/L (98-107); CO2 34 mmol/L (21-32); CREATININE 1.3 mg/dL (0.55-1.02); GLUCOSE,RANDOM 61 mg/dL (74-106); PHOSPHOROUS 4.2 mg/dL (2.5-4.9); POTASSIUM 3.6 mmol/L (3.5-5.1); SODIUM 139 mmol/L (136-145)
[2017-12-02] MEDS ORDERED: PT OWN MED DRAWER 7, Y5N ONE ×2 (09:13→21:21)
[2017-12-02] MEDS: SPIRONOLACTONE 25 MG TABLET (FP) PO SCH (09:15)
[2017-12-02] MEDS: SACUBITRIL/VALSARTAN 49 MG-51 MG TABLET PO SCH ×2 (09:15→22:12)
[2017-12-02] MEDS: CLOPIDOGREL BISULFATE 75 MG TABLET (FP) PO SCH (09:15)
[2017-12-02] MEDS: NICOTINE 7 MG/24 HOURS TOPICAL PATCH TD SCH (09:15)
--- NOTE | 2017-12-02 11:19 | PN ---
Teaching Attending Note Name of Resident: Dick Avendaño ATTENDING PHYSICIAN STATEMENT I saw and evaluated the patient. I reviewed the resident's note and discussed the case with the resident. I agree with the resident's findings and plan as documented. SUBJECTIVE:asymptomatic. laying flat without respiratory distress. denies CP, SOB, fever, chills, cough, orthopnea OBJECTIVE: Last Vital Signs Temp Pulse Resp BP Pulse Ox 97.8 F 49 L 19 96/43 94 L 12/02/17 06:00 12/02/17 06:00 12/02/17 06:00 12/02/17 06:00 12/01/17 21:00 Intake & Output 11/29/17 11/30/17 12/01/17 12/02/17 23:59 23:59 23:59 23:59 Intake Total 480 460 380 130 Balance 480 460 380 130 Weight 221 lb 222 lb 9.6 oz 223 lb 8 oz 223 lb General NAD, refusing to open eyes or converse CV S1 S2 RRR no murmrur/rub/gallop Lungs CTA B/L no wheezing/rales/rhonchi Extremities 1+ pitting edema ASSESSMENT AND PLAN: 62 year old woman with a history of HTN, HLD, DM, CAD status post CT 2003, DVT, right hip replacement, CABG in 2003 with stents, systolic CHF s/p ICD pacemaker , COPD, current smoker, and hypothyroidism who presents to the ER via EMS for shortness of breath and found to be in acute systolic CHF 1. acute on chronic systolic CHF- likely due to non-compliance. currently laying flat and breathing without difficulty. no change in weight but Cr trending up. will switch to lasix 80mg this AM. possible transition to po in the AM. will d/w cardio. water restrict 1L. on spironlactone. Strict I&O, daily weights. close electrolyte monitoring. cardio on board. cont with entresto, spirolactone,metoprolol 2. LIANNA- likely medication induced. will reduce lasix and monitor. 3. hypoglycemia- asymptomatic. A1c checked 5.4. now resolved. 4. Hypernatremia- believe it to be lab error as todays lab was normal. stable. 5. acute transaminitis- likely hepatic congestion. RUG with nothing concerning. total bili trending down. states she has intermittent abdominal pain around the umbilicus where she had surgery. but currently asymptomatic. can f/u wtih GI as outpatient 6. elevated troponins- 0.06 to 0.04. no further workup at this time. 7. hypokalemia- resolved 8. Hypomagnesemia- resolved 9. HTN- controlled. cont medications 10. dyslipidemia- on statin 11. DVT ppx- hep sq 12. will benefit from [facility] and cardiac rehab on discharge
--- NOTE | 2017-12-02 12:39 | PN ---
Physical Exam: SUBJECTIVE: Patient seen and examined at bedside. Pt was not cooperative and refused to wake up and be examined. No acute even on front desk monitor. OBJECTIVE: Vital Signs Period Temp Pulse Resp BP Sys/Santoro Pulse Ox Last 24 Hr 97.8 F-98.4 F 49-64 18-20 94-113/43-59 94-98 GENERAL: sleeping, non-cooperative, refused conversation and exam LUNGS: poor air entry, CTAB HEART: Regular rate and rhythm, S1, S2 without murmur, rub or gallop. Laboratory Results - last 24 hr 12/01/17 12/01/17 12/02/17 05:30 17:26 05:24 Sodium 139 Potassium 4.1 Chloride 96 L Carbon Dioxide Anion Gap 7 L BUN Creatinine Creat Clearance w eGFR POC Glucometer 80 71 Random Glucose Calcium Phosphorus Magnesium 12/02/17 05:30 Sodium 139 Potassium 3.6 Chloride 97 L Carbon Dioxide 34 H Anion Gap 8 BUN 26 H Creatinine 1.3 H Creat Clearance w eGFR 41.24 POC Glucometer Random Glucose 61 L Calcium 8.7 Phosphorus 4.2 Magnesium 2.0 Active Medications Generic Name Dose Route Start Last Admin Trade Name Freq PRN Reason Stop Dose Admin Acetaminophen 325 mg 12/01/17 21:01 12/01/17 21:19 Tylenol - PO 325 mg Q6H PRN Administration PAIN LEVEL 6-10 Albuterol/Ipratropium 1 amp 11/30/17 09:37 11/30/17 20:40 Duoneb - NEB 1 amp Q6H PRN Administration SHORTNESS OF BREATH Clopidogrel Bisulfate 75 mg 11/27/17 10:00 12/02/17 09:15 Plavix - PO 75 mg DAILY [facility] Administration Furosemide 80 mg 12/01/17 06:00 12/02/17 06:19 Lasix Injection - IVPUSH 80 mg DAILY@0600 [facility] Administration Heparin Sodium (Porcine) 5,000 unit 11/27/17 06:00 12/02/17 06:19 Heparin - SQ 5,000 unit TID [facility] Administration Levothyroxine Sodium 75 mcg 11/27/17 07:00 12/02/17 06:19 Synthroid - PO 75 mcg DAILY@0700 [facility] Administration Metoprolol Succinate 100 mg 11/27/17 10:00 12/02/17 09:15 Toprol Xl - PO 100 mg DAILY [facility] Administration Nicotine 7 mg 11/27/17 10:00 12/02/17 09:15 Nicoderm Patch - TD 7 mg DAILY [facility] Administration Sacubitril/Valsartan 1 tab 12/01/17 22:00 12/02/17 09:15 Entresto 49 Mg-51 Mg Tablet PO 1 tab BID [facility] Administration Spironolactone 25 mg 11/28/17 10:00 12/02/17 09:15 Aldactone - PO 25 mg DAILY [facility] Administration ASSESSMENT/PLAN: 62 yo F admitted to [facility] for systolic CHF exacerbation. Acute systolic CHF exacerbation - weight essentially unchanged - change lasix dosing to 80mg IV every morning only - re-assess volume status tomorrow to determine whether to cont. lasix - cont. strict I/O, daily weights, fluid restrict - cont. entresto, aldactone HTN - stable LIANNA - 2/2 lasix - cont. to trend after adjusting lasix dose Dick Avendaño PGY3 [phone] Visit type - Emergency Visit Emergency Visit: No - New Patient This patient is new to me today: Yes Date on this admission: 12/02/17 - Critical Care Critical Care patient: No
--- NOTE | 2017-12-02 15:51 | PN ---
Progress Note, Physician History of Present Illness: The patient is a 62 yr old black F with a PMH of HTN, HLD, DM, CAD status post [place] 2003, CABG in 2003 with stents, severe systolic CHF s/p ICD, COPD current smoker, hypothyroid who presents to the ER via EMS for shortness of breath. The patient is accompanied by her grandson who provides the history. The grandson states that the patient has had 4 months of worsening swelling and shortness of breath. The grandson states that he "finally convinced" his grandmother to come to the ER. The grandmother states that she does not feel well but does not provide any other history. Pt had self-reduced furosemide at home from 80 mg bid to 20 mg bid for the past ?few weeks. - Current Medication List Current Medications: Active Medications Acetaminophen (Tylenol -) 325 mg PO Q6H PRN PRN Reason: PAIN LEVEL 6-10 Last Admin: 12/01/17 21:19 Dose: 325 mg Albuterol/Ipratropium (Duoneb -) 1 amp NEB Q6H PRN PRN Reason: SHORTNESS OF BREATH Last Admin: 11/30/17 20:40 Dose: 1 amp Clopidogrel Bisulfate (Plavix -) 75 mg PO DAILY [facility] Last Admin: 12/02/17 09:15 Dose: 75 mg Furosemide (Lasix Injection -) 80 mg IVPUSH DAILY@0600 [facility] Last Admin: 12/02/17 06:19 Dose: 80 mg Heparin Sodium (Porcine) (Heparin -) 5,000 unit SQ TID [facility] Last Admin: 12/02/17 13:33 Dose: Not Given Levothyroxine Sodium (Synthroid -) 75 mcg PO DAILY@0700 [facility] Last Admin: 12/02/17 06:19 Dose: 75 mcg Metoprolol Succinate (Toprol Xl -) 100 mg PO DAILY [facility] Last Admin: 12/02/17 09:15 Dose: 100 mg Nicotine (Nicoderm Patch -) 7 mg TD DAILY [facility] Last Admin: 12/02/17 09:15 Dose: 7 mg Sacubitril/Valsartan (Entresto 49 Mg-51 Mg Tablet) 1 tab PO BID [facility] Last Admin: 12/02/17 09:15 Dose: 1 tab Spironolactone (Aldactone -) 25 mg PO DAILY [facility] Last Admin: 12/02/17 09:15 Dose: 25 mg - Objective Vital Signs: Vital Signs Temperature 98.4 F 12/02/17 10:00 Pulse Rate 50 L 12/02/17 10:00 Respiratory Rate 20 12/02/17 10:00 Blood Pressure 110/59 12/02/17 10:00 O2 Sat by Pulse Oximetry (%) 98 12/02/17 10:00 Labs: CBC, BMP 11/29/17 05:30 12/02/17 05:30 Problem List - Problems (1) AICD (automatic cardioverter/defibrillator) present Code(s): Z95.810 - PRESENCE OF AUTOMATIC (IMPLANTABLE) CARDIAC DEFIBRILLATOR (2) Acute on chronic systolic and diastolic heart failure, NYHA class 3 Code(s): I50.43 - ACUTE ON CHRONIC COMBINED SYSTOLIC AND DIASTOLIC HRT FAIL (3) Cigarette nicotine dependence Code(s): F17.210 - NICOTINE DEPENDENCE, CIGARETTES, UNCOMPLICATED (4) COPD (chronic obstructive pulmonary disease) Code(s): J44.9 - CHRONIC OBSTRUCTIVE PULMONARY DISEASE, UNSPECIFIED (5) Coronary artery disease Code(s): I25.10 - ATHSCL HEART DISEASE OF [place] CORONARY ARTERY W/O ANG PCTRS (6) Diabetes Code(s): E11.9 - TYPE 2 DIABETES MELLITUS WITHOUT COMPLICATIONS Qualifiers: Diabetes mellitus type: type 2 Diabetes mellitus 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 truck driver insulin use: with intermediate use Diabetes mellitus complication status: with unspecified complications Qualified Code(s): E11.8 - Type 2 diabetes mellitus with unspecified complications (7) Fatty liver Code(s): K76.0 - FATTY (CHANGE OF) LIVER, NOT ELSEWHERE CLASSIFIED (8) Hyperlipidemia Code(s): E78.5 - HYPERLIPIDEMIA, UNSPECIFIED (9) Hypertension Code(s): I10 - ESSENTIAL (PRIMARY) HYPERTENSION (10) Hypothyroidism Code(s): E03.9 - HYPOTHYROIDISM, UNSPECIFIED (11) Peripheral neuropathy Code(s): G62.9 - POLYNEUROPATHY, UNSPECIFIED Qualifiers: Peripheral neuropathy type: polyneuropathy, unspecified Qualified Code(s): G62.9 - Polyneuropathy, unspecified (12) Sleep apnea Assessment/Plan: CPAP per pulverizer mill operator. Code(s): G47.30 - SLEEP APNEA, UNSPECIFIED (13) Status post THR (total hip replacement) Code(s): Z96.649 - PRESENCE OF UNSPECIFIED ARTIFICIAL HIP JOINT (14) Elevated liver function tests Code(s): R94.5 - ABNORMAL RESULTS OF LIVER FUNCTION STUDIES (15) Hypokalemia Code(s): E87.6 - HYPOKALEMIA (16) Chronic abdominal pain Code(s): R10.9 - UNSPECIFIED ABDOMINAL PAIN; G89.29 - OTHER CHRONIC PAIN (17) Facial swelling Assessment/Plan: rmarked facial swelling; itchiness periumbilically. r/o allergic reaction. r/o SVC syndrome. PLan: check all medications, Doppler US to r/o superior vena cava (SVC) syndrome due to, e.g., malignancy or ICD lead thrombus; consider CT if doppler does not help with diagnosis. Code(s): R22.0 - LOCALIZED SWELLING, MASS AND LUMP, HEAD
[2017-12-03] MEDS ORDERED: diphenhydrAMINE HCL 25 MG CAPSULE (FP) PO ONE (02:08)
[2017-12-03] MEDS: HEPARIN NA (PORCINE) 5,000 UNITS/ML 1ML VIAL SQ SCH ×3 (05:39→21:52)
[2017-12-03] MEDS: LEVOTHYROXINE NA 75 MCG TABLET (FP) PO SCH (06:09)
[2017-12-03 06:49] LABS: ANION GAP 8 (8-16); BLOOD UREA NITROGEN 31 mg/dL (7-18); CALCIUM 8.7 mg/dL (8.5-10.1); CHLORIDE 97 mmol/L (98-107); CO2 34 mmol/L (21-32); GLUCOSE,RANDOM 52 mg/dL (74-106); POTASSIUM 3.9 mmol/L (3.5-5.1); SODIUM 139 mmol/L (136-145)
[2017-12-03 06:51] LABS: CREATININE 1.3 mg/dL (0.55-1.02); PHOSPHOROUS 4.1 mg/dL (2.5-4.9)
--- NOTE | 2017-12-03 07:22 | PN ---
Progress Note, Physician Chief Complaint: Pt A&Ox3; no chest pain; c/o abdominal (umbilical) chronic sharp pains. Less dyspneic; +facial swelling. History of Present Illness: The patient is a 62 black F with a PMH of HTN, HLD, DM, CAD status post [place] 2003 , CABG in 2003 with stents, severe systolic CHF s/p ICD pacemaker, COPD current smoker, hypothyroid , anxiety/depression, who presents to the ER via EMS for shortness of breath. The patient is accompanied by her grandson who provides the history. The grandson states that the patient has had 4 months of worsening swelling and shortness of breath. The grandson states that he "finally convinced " his grandmother to come to the ER. The grandmother states that she does not feel well but does not provide any other history. - Current Medication List Current Medications: Active Medications Acetaminophen (Tylenol -) 325 mg PO Q6H PRN PRN Reason: PAIN LEVEL 6-10 Last Admin: 12/01/17 21:19 Dose: 325 mg Albuterol/Ipratropium (Duoneb -) 1 amp NEB Q6H PRN PRN Reason: SHORTNESS OF BREATH Last Admin: 11/30/17 20:40 Dose: 1 amp Clopidogrel Bisulfate (Plavix -) 75 mg PO DAILY [facility] Last Admin: 12/02/17 09:15 Dose: 75 mg Furosemide (Lasix Injection -) 80 mg IVPUSH DAILY@0600 [facility] Last Admin: 12/02/17 06:19 Dose: 80 mg Heparin Sodium (Porcine) (Heparin -) 5,000 unit SQ TID [facility] Last Admin: 12/03/17 05:39 Dose: 5,000 unit Levothyroxine Sodium (Synthroid -) 75 mcg PO DAILY@0700 [facility] Last Admin: 12/03/17 06:09 Dose: 75 mcg Metoprolol Succinate (Toprol Xl -) 100 mg PO DAILY [facility] Last Admin: 12/02/17 09:15 Dose: 100 mg Nicotine (Nicoderm Patch -) 7 mg TD DAILY [facility] Last Admin: 12/02/17 09:15 Dose: 7 mg Sacubitril/Valsartan (Entresto 49 Mg-51 Mg Tablet) 1 tab PO BID [facility] Last Admin: 12/02/17 22:12 Dose: 1 tab Spironolactone (Aldactone -) 25 mg PO DAILY [facility] Last Admin: 12/02/17 09:15 Dose: 25 mg - Objective Vital Signs: Vital Signs Temperature 97.8 F 12/03/17 05:38 Pulse Rate 51 L 12/03/17 05:38 Respiratory Rate 20 12/03/17 05:38 Blood Pressure 104/47 12/03/17 05:38 O2 Sat by Pulse Oximetry (%) 98 12/02/17 21:04 Constitutional: Yes: Anxious Eyes: Yes: WNL HENT: Yes: WNL Neck: Yes: WNL Cardiovascular: Yes: S1 (split), S2, S4 Respiratory: Yes: Diminished Gastrointestinal: Yes: Soft, Abdomen, Obese, Distention ...Rectal Exam: Yes: Deferred Genitourinary: No: Anuria Breast(s): Yes: Other (swollen; nontender) Musculoskeletal: Yes: Joint Stiffness, Joint Swelling, Muscle Weakness Extremities: Yes: Cool Edema: Yes Edema: LLE: Trace, RLE: Trace Peripheral Pulses WNL: Yes Integumentary: Yes: Venous Stasis Changes, Other Neurological: Yes: Alert, Oriented, Weakness Psychiatric: Yes: Other Labs: CBC, BMP 11/29/17 05:30 12/03/17 05:30 Problem List - Problems (1) Elevated liver function tests Assessment/Plan: mildly elevated; f/u serially with CHF treatment. Code(s): R94.5 - ABNORMAL RESULTS OF LIVER FUNCTION STUDIES (2) AICD (automatic cardioverter/defibrillator) present Code(s): Z95.810 - PRESENCE OF AUTOMATIC (IMPLANTABLE) CARDIAC DEFIBRILLATOR (3) Acute on chronic systolic and diastolic heart failure, NYHA class 3 Code(s): I50.43 - ACUTE ON CHRONIC COMBINED SYSTOLIC AND DIASTOLIC HRT FAIL (4) Cigarette nicotine dependence Assessment/Plan: Pt refuses help to quit smoking (though, today, says she will now agree to the nicotine patch). Code(s): F17.210 - NICOTINE DEPENDENCE, CIGARETTES, UNCOMPLICATED (5) COPD (chronic obstructive pulmonary disease) Code(s): J44.9 - CHRONIC OBSTRUCTIVE PULMONARY DISEASE, UNSPECIFIED (6) Coronary artery disease Code(s): I25.10 - ATHSCL HEART DISEASE OF [place] CORONARY ARTERY W/O ANG PCTRS (7) Diabetes Code(s): E11.9 - TYPE 2 DIABETES MELLITUS WITHOUT COMPLICATIONS Qualifiers: Diabetes mellitus type: type 2 Diabetes mellitus adjunct teacher insulin use: with custodial use Diabetes mellitus complication status: with unspecified complications Qualified Code(s): E11.8 - Type 2 diabetes mellitus with unspecified complications (8) Fatty liver Code(s): K76.0 - FATTY (CHANGE OF) LIVER, NOT ELSEWHERE CLASSIFIED (9) Hyperlipidemia Assessment/Plan: statin; diet modification; weight loss. Code(s): E78.5 - HYPERLIPIDEMIA, UNSPECIFIED (10) Hypertension Code(s): I10 - ESSENTIAL (PRIMARY) HYPERTENSION (11) Hypothyroidism Code(s): E03.9 - HYPOTHYROIDISM, UNSPECIFIED (12) Peripheral neuropathy Code(s): G62.9 - POLYNEUROPATHY, UNSPECIFIED Qualifiers: Peripheral neuropathy type: polyneuropathy, unspecified Qualified Code(s): G62.9 - Polyneuropathy, unspecified (13) Sleep apnea Code(s): G47.30 - SLEEP APNEA, UNSPECIFIED (14) Status post THR (total hip replacement) Code(s): Z96.649 - PRESENCE OF UNSPECIFIED ARTIFICIAL HIP JOINT (15) Hypokalemia Assessment/Plan: Replete electrolytes. Keep K 4-4.5; Mg 2-2.3; PO4 2.5-3.5. Code(s): E87.6 - HYPOKALEMIA (16) Chronic abdominal pain Assessment/Plan: consider f/u with GI; pt claims the pains started after surgery last year. Code(s): R10.9 - UNSPECIFIED ABDOMINAL PAIN; G89.29 - OTHER CHRONIC PAIN (17) Facial swelling Assessment/Plan: Facial swelling increased over the past few days; no accompanying respiratory distress; LE swelling has improved. Fec: UE Duplex to r/o superior vena cava syndrome; CT if doppler is unhelpful. Reivew all medications; r/o allergic reaction. Code(s): R22.0 - LOCALIZED SWELLING, MASS AND LUMP, HEAD
--- NOTE | 2017-12-03 10:24 | PN ---
Progress Note, Physician Chief Complaint: Pt A&Ox3; increased facial edema (able to open eyes, but with difficulty owing to the marked edema). Not in respiratory distress; no stridor or wheezing. History of Present Illness: The patient is a 62 black F with a PMH of HTN, HLD, DM, CAD status post [place] 2003 , CABG in 2003 with stents, severe systolic CHF s/p ICD pacemaker, COPD current smoker, hypothyroid , anxiety/depression, who presents to the ER via EMS for shortness of breath. The patient is accompanied by her grandson who provides the history. The grandson states that the patient has had 4 months of worsening swelling and shortness of breath. The grandson states that he "finally convinced " his grandmother to come to the ER. The grandmother states that she does not feel well but does not provide any other history. - Current Medication List Current Medications: Active Medications Acetaminophen (Tylenol -) 325 mg PO Q6H PRN PRN Reason: PAIN LEVEL 6-10 Last Admin: 12/01/17 21:19 Dose: 325 mg Albuterol/Ipratropium (Duoneb -) 1 amp NEB Q6H PRN PRN Reason: SHORTNESS OF BREATH Last Admin: 11/30/17 20:40 Dose: 1 amp Clopidogrel Bisulfate (Plavix -) 75 mg PO DAILY [facility] Last Admin: 12/02/17 09:15 Dose: 75 mg Furosemide (Lasix Injection -) 80 mg IVPUSH DAILY@0600 [facility] Last Admin: 12/02/17 06:19 Dose: 80 mg Heparin Sodium (Porcine) (Heparin -) 5,000 unit SQ TID [facility] Last Admin: 12/03/17 05:39 Dose: 5,000 unit Levothyroxine Sodium (Synthroid -) 75 mcg PO DAILY@0700 [facility] Last Admin: 12/03/17 06:09 Dose: 75 mcg Metoprolol Succinate (Toprol Xl -) 100 mg PO DAILY [facility] Last Admin: 12/02/17 09:15 Dose: 100 mg Nicotine (Nicoderm Patch -) 7 mg TD DAILY [facility] Last Admin: 12/02/17 09:15 Dose: 7 mg Sacubitril/Valsartan (Entresto 49 Mg-51 Mg Tablet) 1 tab PO BID [facility] Last Admin: 12/02/17 22:12 Dose: 1 tab Spironolactone (Aldactone -) 25 mg PO DAILY [facility] Last Admin: 12/02/17 09:15 Dose: 25 mg - Objective Vital Signs: Vital Signs Temperature 97.8 F 12/03/17 05:38 Pulse Rate 51 L 12/03/17 05:38 Respiratory Rate 20 12/03/17 05:38 Blood Pressure 104/47 12/03/17 05:38 O2 Sat by Pulse Oximetry (%) 98 12/02/17 21:04 Constitutional: Yes: Anxious Eyes: Yes: WNL HENT: Yes: WNL Neck: Yes: WNL Cardiovascular: Yes: Murmur, S1 (split), S2, S4 Respiratory: Yes: Diminished Labs: CBC, BMP 11/29/17 05:30 12/03/17 05:30 Problem List - Problems (1) Elevated liver function tests Assessment/Plan: mildly elevated since admission; f/u serially with CHF treatment. Hx fatty liver. Code(s): R94.5 - ABNORMAL RESULTS OF LIVER FUNCTION STUDIES (2) AICD (automatic cardioverter/defibrillator) present Code(s): Z95.810 - PRESENCE OF AUTOMATIC (IMPLANTABLE) CARDIAC DEFIBRILLATOR (3) Acute on chronic systolic and diastolic heart failure, NYHA class 3 Assessment/Plan: No JBD. Increase Entresto to 49/15 mg bid. On spironolactone 25 mg daily. On metoprolol 100 mg daily. Furosemide 80 qd-bid (f/u BUN/Cr, electrolytes, Is and Os, daily weight). Code(s): I50.43 - ACUTE ON CHRONIC COMBINED SYSTOLIC AND DIASTOLIC HRT FAIL (4) Cigarette nicotine dependence Assessment/Plan: Pt refuses help to quit smoking (though, today, says she will now agree to the nicotine patch). 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 CXR repeat. Code(s): J44.9 - CHRONIC OBSTRUCTIVE PULMONARY DISEASE, UNSPECIFIED (6) Coronary artery disease Code(s): I25.10 - ATHSCL HEART DISEASE OF [place] CORONARY ARTERY W/O ANG PCTRS (7) Diabetes Code(s): E11.9 - TYPE 2 DIABETES MELLITUS WITHOUT COMPLICATIONS Qualifiers: Diabetes mellitus type: type 2 Diabetes mellitus long term care administrator insulin use: with fci use Diabetes mellitus complication status: with unspecified complications Qualified Code(s): E11.8 - Type 2 diabetes mellitus with unspecified complications (8) Fatty liver Code(s): K76.0 - FATTY (CHANGE OF) LIVER, NOT ELSEWHERE CLASSIFIED (9) Hyperlipidemia Code(s): E78.5 - HYPERLIPIDEMIA, UNSPECIFIED (10) Hypertension Code(s): I10 - ESSENTIAL (PRIMARY) HYPERTENSION (11) Hypothyroidism Code(s): E03.9 - HYPOTHYROIDISM, UNSPECIFIED (12) Peripheral neuropathy Code(s): G62.9 - POLYNEUROPATHY, UNSPECIFIED Qualifiers: Peripheral neuropathy type: polyneuropathy, unspecified Qualified Code(s): G62.9 - Polyneuropathy, unspecified (13) Sleep apnea Assessment/Plan: nightly respiratory therapy per fur trimming machine operator/sleep specialist. Code(s): G47.30 - SLEEP APNEA, UNSPECIFIED (14) Status post THR (total hip replacement) Code(s): Z96.649 - PRESENCE OF UNSPECIFIED ARTIFICIAL HIP JOINT (15) Hypokalemia Assessment/Plan: Replete electrolytes. Keep K 4-4.5; Mg 2-2.3; PO4 2.5-3.5. Code(s): E87.6 - HYPOKALEMIA (16) Chronic abdominal pain Assessment/Plan: consider f/u with GI; pt claims the pains started after surgery last year. Code(s): R10.9 - UNSPECIFIED ABDOMINAL PAIN; G89.29 - OTHER CHRONIC PAIN (17) Facial swelling Assessment/Plan: Facial swelling increased over the past few days; no accompanying respiratory distress; LE swelling has improved, and pt feels she is urinating "all the time ", though measurements listed do not show weight loss. Fec: UE Duplex to r/o superior vena cava (SVC) syndrome; CT if doppler is unhelpful (may be problematic, given renal dysfunction, espeially as contrast may be needed). Reivew all medications; r/o allergic reaction. Code(s): R22.0 - LOCALIZED SWELLING, MASS AND LUMP, HEAD
--- NOTE | 2017-12-03 10:26 | PN ---
Progress Note, Physician History of Present Illness: The patient is a 62 yr old black F with a PMH of HTN, HLD, DM, CAD status post [place] 2003, CABG in 2003 with stents, severe systolic CHF s/p ICD, COPD current smoker, hypothyroid who presents to the ER via EMS for shortness of breath. The patient is accompanied by her grandson who provides the history. The grandson states that the patient has had 4 months of worsening swelling and shortness of breath. The grandson states that he "finally convinced" his grandmother to come to the ER. The grandmother states that she does not feel well but does not provide any other history. Pt had self-reduced furosemide at home from 80 mg bid to 20 mg bid for the past ?few weeks. - Current Medication List Current Medications: Active Medications Acetaminophen (Tylenol -) 325 mg PO Q6H PRN PRN Reason: PAIN LEVEL 6-10 Last Admin: 12/01/17 21:19 Dose: 325 mg Albuterol/Ipratropium (Duoneb -) 1 amp NEB Q6H PRN PRN Reason: SHORTNESS OF BREATH Last Admin: 11/30/17 20:40 Dose: 1 amp Clopidogrel Bisulfate (Plavix -) 75 mg PO DAILY [facility] Last Admin: 12/02/17 09:15 Dose: 75 mg Furosemide (Lasix Injection -) 80 mg IVPUSH DAILY@0600 [facility] Last Admin: 12/02/17 06:19 Dose: 80 mg Heparin Sodium (Porcine) (Heparin -) 5,000 unit SQ TID [facility] Last Admin: 12/03/17 05:39 Dose: 5,000 unit Levothyroxine Sodium (Synthroid -) 75 mcg PO DAILY@0700 [facility] Last Admin: 12/03/17 06:09 Dose: 75 mcg Metoprolol Succinate (Toprol Xl -) 100 mg PO DAILY [facility] Last Admin: 12/02/17 09:15 Dose: 100 mg Nicotine (Nicoderm Patch -) 7 mg TD DAILY [facility] Last Admin: 12/02/17 09:15 Dose: 7 mg Sacubitril/Valsartan (Entresto 49 Mg-51 Mg Tablet) 1 tab PO BID [facility] Last Admin: 12/02/17 22:12 Dose: 1 tab Spironolactone (Aldactone -) 25 mg PO DAILY [facility] Last Admin: 12/02/17 09:15 Dose: 25 mg - Objective Vital Signs: Vital Signs Temperature 97.8 F 12/03/17 05:38 Pulse Rate 51 L 12/03/17 05:38 Respiratory Rate 20 12/03/17 05:38 Blood Pressure 104/47 12/03/17 05:38 O2 Sat by Pulse Oximetry (%) 98 12/02/17 21:04 Eyes: Yes: WNL, Conjunctiva Clear, EOM Intact HENT: Yes: WNL, Atraumatic, Normocephalic Neck: Yes: WNL, Supple, Trachea Midline Cardiovascular: Yes: WNL, Regular Rate and Rhythm Respiratory: Yes: WNL, Regular, CTA Bilaterally Gastrointestinal: Yes: WNL, Normal Bowel Sounds Genitourinary: Yes: WNL Musculoskeletal: Yes: WNL Extremities: Yes: WNL Edema: Yes Integumentary: Yes: WNL Neurological: Yes: WNL, Alert, Oriented ...Motor Strength: WNL Psychiatric: Yes: WNL Labs: CBC, BMP 11/29/17 05:30 12/03/17 05:30 Assessment/Plan Problems (1) Elevated liver function tests Assessment/Plan: mildly elevated; f/u serially with CHF treatment. Code(s): R94.5 - ABNORMAL RESULTS OF LIVER FUNCTION STUDIES (2) AICD (automatic cardioverter/defibrillator) present Code(s): Z95.810 - PRESENCE OF AUTOMATIC (IMPLANTABLE) CARDIAC DEFIBRILLATOR (3) Acute on chronic systolic and diastolic heart failure, NYHA class 3 Code(s): I50.43 - ACUTE ON CHRONIC COMBINED SYSTOLIC AND DIASTOLIC HRT FAIL (4) Cigarette nicotine dependence Assessment/Plan: Pt refuses help to quit smoking (though, today, says she will now agree to the nicotine patch). Code(s): F17.210 - NICOTINE DEPENDENCE, CIGARETTES, UNCOMPLICATED (5) COPD (chronic obstructive pulmonary disease) Code(s): J44.9 - CHRONIC OBSTRUCTIVE PULMONARY DISEASE, UNSPECIFIED (6) Coronary artery disease Code(s): I25.10 - ATHSCL HEART DISEASE OF [place] CORONARY ARTERY W/O ANG PCTRS (7) Diabetes Code(s): E11.9 - TYPE 2 DIABETES MELLITUS WITHOUT COMPLICATIONS Qualifiers: Diabetes mellitus type: type 2 Diabetes mellitus group home insulin use: with group home use Diabetes mellitus complication status: with unspecified complications Qualified Code(s): E11.8 - Type 2 diabetes mellitus with unspecified complications (8) Fatty liver Code(s): K76.0 - FATTY (CHANGE OF) LIVER, NOT ELSEWHERE CLASSIFIED (9) Hyperlipidemia Assessment/Plan: statin; diet modification; weight loss. Code(s): E78.5 - HYPERLIPIDEMIA, UNSPECIFIED (10) Hypertension Code(s): I10 - ESSENTIAL (PRIMARY) HYPERTENSION (11) Hypothyroidism Code(s): E03.9 - HYPOTHYROIDISM, UNSPECIFIED (12) Peripheral neuropathy Code(s): G62.9 - POLYNEUROPATHY, UNSPECIFIED Qualifiers: Peripheral neuropathy type: polyneuropathy, unspecified Qualified Code(s): G62.9 - Polyneuropathy, unspecified (13) Sleep apnea Code(s): G47.30 - SLEEP APNEA, UNSPECIFIED (14) Status post THR (total hip replacement) Code(s): Z96.649 - PRESENCE OF UNSPECIFIED ARTIFICIAL HIP JOINT (15) Hypokalemia Assessment/Plan: Replete electrolytes. Keep K 4-4.5; Mg 2-2.3; PO4 2.5-3.5. Code(s): E87.6 - HYPOKALEMIA (16) Chronic abdominal pain Assessment/Plan: consider f/u with GI; pt claims the pains started after surgery last year. Code(s): R10.9 - UNSPECIFIED ABDOMINAL PAIN; G89.29 - OTHER CHRONIC PAIN (17) Facial swelling Assessment/Plan: Facial swelling increased over the past few days; no accompanying respiratory distress; LE swelling has improved. Fec: UE Duplex to r/o superior vena cava syndrome; CT if doppler is unhelpful. Reivew all medications; r/o allergic reaction. Code(s): R22.0 - LOCALIZED SWELLING, MASS AND LUMP, HEAD
[2017-12-03] MEDS: SPIRONOLACTONE 25 MG TABLET (FP) PO SCH (10:33)
[2017-12-03] MEDS: ACETAMINOPHEN 325 MG TABLET (FP) PO PRN (10:33)
[2017-12-03] MEDS: CLOPIDOGREL BISULFATE 75 MG TABLET (FP) PO SCH (10:34)
[2017-12-03] MEDS: NICOTINE 7 MG/24 HOURS TOPICAL PATCH TD SCH (10:34)
[2017-12-03] MEDS: SACUBITRIL/VALSARTAN 49 MG-51 MG TABLET PO SCH ×2 (10:34→21:52)
--- NOTE | 2017-12-03 13:03 | PN ---
Teaching Attending Note Name of Resident: Onesimo Simmons ATTENDING PHYSICIAN STATEMENT I saw and evaluated the patient. I reviewed the resident's note and discussed the case with the resident. I agree with the resident's findings and plan as documented. SUBJECTIVE:refuses to answer any questions at this time. states no to SOB OBJECTIVE: Last Vital Signs Temp Pulse Resp BP Pulse Ox 97.8 F 51 L 20 104/47 98 12/03/17 05:38 12/03/17 05:38 12/03/17 05:38 12/03/17 05:38 12/02/17 21:04 General NAD, refusing to open eyes or converse HEENT B/L ocular puffiness CV S1 S2 RRR no murmrur/rub/gallop Lungs CTA B/L no wheezing/rales/rhonchi Extremities trace pitting edema B/L LE. no swelling noted of upper extremities ASSESSMENT AND PLAN: 62 year old woman with a history of HTN, HLD, DM, CAD status post CT 2003, DVT, right hip replacement, CABG in 2003 with stents, systolic CHF s/p ICD pacemaker , COPD, current smoker, and hypothyroidism who presents to the ER via EMS for shortness of breath and found to be in acute systolic CHF 1. acute on chronic systolic CHF- likely due to non-compliance. currently laying flat and breathing without difficulty. no change in weight and appears to be euvolemic. start lasix 80mg po BID. d/w cardio. water restrict 1L. on spironlactone. Strict I&O, daily weights. close electrolyte monitoring. cardio on board. cont with entresto, spirolactone,metoprolol 2. Facial puffiness- worsening per cardio althrough appears more euvolemic. doppler done to r/o SVC syndrome. not a good study as pt was not cooperative. would pursue CT however would need contrast and in setting of LIANNA would need to wait. will d/w cardio 2. LIANNA- likely medication induced. stable. will hold spirolactone and lasix for today to evluat for renal function to improve so study may be done. 3. hypoglycemia- asymptomatic. A1c checked 5.4. now resolved. 4. Hypernatremia- believe it to be lab error as todays lab was normal. stable. 5. acute transaminitis- likely hepatic congestion. RUG with nothing concerning. total bili trending down. states she has intermittent abdominal pain around the umbilicus where she had surgery. but currently asymptomatic. can f/u wtih GI as outpatient 6. elevated troponins- 0.06 to 0.04. no further workup at this time. 7. hypokalemia- resolved 8. Hypomagnesemia- resolved 9. HTN- controlled. cont medications 10. dyslipidemia- on statin 11. DVT ppx- hep sq 12. will benefit from [facility] and cardiac rehab on discharge
[2017-12-03] MEDS ORDERED: FUROSEMIDE 40 MG TABLET (FP) PO SCH (14:00)
--- NOTE | 2017-12-03 19:06 | PN ---
Physical Exam: SUBJECTIVE: Patient seen and examined. Pt. is in mild respiratory distress, c/o itchiness but refuses Benadryl. Pt. plays with the EKG leads constantly b/c of itchiness. Pt. c/o IV placement and dental sales representative and nursing in general. Pt. complained of pain during Doppler to r/o Superior Vena Cava Syndrome. Pt. complains of blurry vision, Pt.s face is still puffy, especially around her eyes. Pt. c/o of abdominal pain that has not gotten better over the last 2 weeks. Pt. is making urine and has had BM. Pt. denies any chest pain, shortness of breath more than baseline, palpitations or leg pain. OBJECTIVE: Vital Signs Period Temp Pulse Resp BP Sys/Santoro Pulse Ox Last 24 Hr 97.5 F-98.3 F 44-58 20-22 92-104/42-56 98-100 GENERAL: The patient is awake, alert, and fully oriented, in no mild respiratory distress. HEAD: "Puffyness" around the eyes in particular. LUNGS: Breath sounds equal, clear to auscultation bilaterally, decreased breath sounds- limited d/t body habitus. HEART: Regular rate and rhythm, S1, S2 without murmur. ABDOMEN: firm, diffusely tender to palpation, dull on percussion, normoactive bowel sounds, no guarding, no rebound, no hepatosplenomegaly, no masses. EXTREMITIES: warm, well-perfused, no edema, no calf pain. PSYCH: Normal mood, normal affect. SKIN: Warm, dry, normal turgor Laboratory Results - last 24 hr 12/03/17 05:30 Sodium 139 Potassium 3.9 Chloride 97 L Carbon Dioxide 34 H Anion Gap 8 BUN 31 H Creatinine 1.3 H Creat Clearance w eGFR 41.24 Random Glucose 52 L Calcium 8.7 Phosphorus 4.1 Magnesium 2.0 Active Medications Current Medications Acetaminophen (Tylenol -) 325 mg PO Q6H PRN PRN Reason: PAIN LEVEL 6-10 Last Admin: 12/03/17 10:33 Dose: 325 mg Albuterol/Ipratropium (Duoneb -) 1 amp NEB Q6H PRN PRN Reason: SHORTNESS OF BREATH Last Admin: 11/30/17 20:40 Dose: 1 amp Clopidogrel Bisulfate (Plavix -) 75 mg PO DAILY [facility] Last Admin: 12/03/17 10:34 Dose: 75 mg Heparin Sodium (Porcine) (Heparin -) 5,000 unit SQ TID [facility] Last Admin: 12/03/17 14:59 Dose: 5,000 unit Levothyroxine Sodium (Synthroid -) 75 mcg PO DAILY@0700 [facility] Last Admin: 12/03/17 06:09 Dose: 75 mcg Metoprolol Succinate (Toprol Xl -) 100 mg PO DAILY [facility] Last Admin: 12/03/17 10:33 Dose: 100 mg Nicotine (Nicoderm Patch -) 7 mg TD DAILY [facility] Last Admin: 12/03/17 10:34 Dose: 7 mg Sacubitril/Valsartan (Entresto 49 Mg-51 Mg Tablet) 1 tab PO BID [facility] Last Admin: 12/03/17 10:34 Dose: 1 tab ASSESSMENT/PLAN: 62 y/o female with PMH systolic CHF with EF 25% s/p ICD pacemaker, HTN, HLD, DM , COPD, hypothyroidism, CAD s/p CABG x2 and [place] 2003, presents with complaint of shortness of breath. CHF exacerbation -Last echo EF 25%, severely dilated and hypertrophic LV -ECG showed 1st degree heart block with PVC -Elevated troponins 0.06 -Troponins x 2 negative -Adjusted Lasix 80mg BID PO -follow intake & outputs, daily weights: Weight on admission: 100.335kgs; Weight (12/02/17): 100.151 kgs Weight Today(101.423 kg) -patient amenable to continued cardiac monitoring -Readjusted Lasix to 80mg BID PO however held Lasix and Aldactone today d/t rising Cr. -Pt. was unable to tolerate US Doppler to r/o Superior Vena Cava Syndrome, there fore if Cr. decreases consider CTA, if not discharge and follow up with CTA as outpatient. Dyspnea -Continue oxygen 5L nasal canula -Duonebs Q6 hours -Pt. denies orthopnea today(12/03/17) Hypokalemia -Likely secondary to diuretic -Oral KCl -IV KCl [id number] X3 doses (11/27/17) -given 40 meq K-Dur @ 15:05 -resolved K+: 4.5 (11/29/17) Abdominal Pain -AST 42, Bili 2.9 on admission. -Abdominal U/S: R. Renal cyst 2.5cm, coarse echotexture suggestive of fatty infiltration or hepatocellular disease -reduced abdominal pain from admission -resolved Hypoglycemia -given D50w 25gm TWICE, last dose 10/29/17 AM -monitoring blood glucose q6h -glucose has been above 50 during the day, currently at 83 (11/29/17). -Glucose 60 (11/30/17) -if glucose below 50, repeat D50w 25gm dose. -Asymptomatic: resolved HTN - c/w Metoprolol - c/w aldactone Hypothyroidism -Continue Synthroid DM -Insulin sliding scale -Fingerstick blood glucose monitoring Smoking -Nicotine patch -Pt. has been refusing nicotine patch since admission til today (12/03/17) Hypoalbuminemia -Operational Trainer consult -likely 2/2 systolic CHF -elevated LFTs -appreciate abd. US FEN - No IV fluids at this time - Oral KCl and IVKCl Q4 hours X 3 doses (11/27/17)---> K+: 3.8 on rpt. AM labs ()-->Given an additional 40meq at 15:05 (11/28/17) - Diabetic/ Low sodium diet - Magnesium: 1.5 (11/27/17)--> Given Mg Sulfate, M.1 on rpt labs (11/28/17) - resolved - Fluid restriction to 1L - Strict Is and Os Dispo - patient lives at home by herself - no longer has VNS or home health aide - Pt. amenable to going to [facility] for rehabilitation or any other SNF EXCEPT [facility] - f/u Palliative Care Visit type - Emergency Visit Emergency Visit: Yes ED Registration Date: 11/27/17 Care time: The patient presented to the Emergency Department on the above date and was hospitalized for further evaluation of their emergent condition. - New Patient This patient is new to me today: No - Critical Care Critical Care patient: No - Discharge Referral Referred to [facility] Med P.C.: No
[2017-12-04] MEDS: LEVOTHYROXINE NA 75 MCG TABLET (FP) PO SCH (07:01)
[2017-12-04] MEDS: HEPARIN NA (PORCINE) 5,000 UNITS/ML 1ML VIAL SQ SCH ×3 (07:01→21:39)
[2017-12-04] MEDS ORDERED: PT OWN MED DRAWER 7, Y5N ONE (07:07)
[2017-12-04 07:25] LABS: ANION GAP 9 (8-16); BLOOD UREA NITROGEN 35 mg/dL (7-18); CALCIUM 8.7 mg/dL (8.5-10.1); CHLORIDE 97 mmol/L (98-107); CO2 33 mmol/L (21-32); GLUCOSE,RANDOM 72 mg/dL (74-106); MAGNESIUM 2.2 mg/dL (1.8-2.4); POTASSIUM 3.6 mmol/L (3.5-5.1); SODIUM 139 mmol/L (136-145)
[2017-12-04 07:31] LABS: ALK PHOS 103 U/L (45-117); BILIRUBIN,TOTAL 2.5 mg/dL (0.2-1.0); CREATININE 1.5 mg/dL (0.55-1.02); PHOSPHOROUS 4.5 mg/dL (2.5-4.9); SGOT/AST 37 U/L (15-37); SGPT/ALT 21 U/L (12-78); TOT PROT 7.2 g/dl (6.4-8.2)
[2017-12-04] MEDS: SACUBITRIL/VALSARTAN 49 MG-51 MG TABLET PO SCH ×2 (10:53→21:39)
[2017-12-04] MEDS: NICOTINE 7 MG/24 HOURS TOPICAL PATCH TD SCH (10:53)
[2017-12-04] MEDS: CLOPIDOGREL BISULFATE 75 MG TABLET (FP) PO SCH (10:53)
--- NOTE | 2017-12-04 13:46 | PN ---
Teaching Attending Note Name of Resident: Onesimo Simmons ATTENDING PHYSICIAN STATEMENT I saw and evaluated the patient. I reviewed the resident's note and discussed the case with the resident. I agree with the resident's findings and plan as documented with exceptions below. SUBJECTIVE: Patient seen and examined. Breathing improved, still with swelling, overall unchanged from yesterday, no new complaints. OBJECTIVE: Vital Signs Period Temp Pulse Resp BP Sys/Santoro Pulse Ox Last 24 Hr 96.8 F-98.2 F 44-68 16-20 92-130/42-62 91-91 Intake & Output 12/01/17 12/02/17 12/03/17 12/04/17 23:59 23:59 23:59 23:59 Intake Total 380 240 520 100 Balance 380 240 520 100 Weight 223 lb 8 oz 223 lb 223 lb 9.6 oz 224 lb 2 oz General: sitting in bed, mild tachypnea but able to talk in full sentences HEENT: facial/eyelid swelling, EOMI Neck: limited exam Chest: limited given lack of full effort, decreased breath sounds at bases Extremities: 2+ pitting pedal edema Home Medications Medication Instructions Recorded Clopidogrel Bisulfate [Plavix -] 75 mg PO DAILY #30 tablet 08/02/17 Levothyroxine [Synthroid -] 75 mcg PO DAILY@0700 30 Days #30 08/02/17 tablet Sacubitril/Valsartan [Entresto 24 1 tab PO BID #60 tablet 08/14/17 mg-26 mg Tablet] Metoprolol Succinate 100 mg PO DAILY 11/27/17 Spironolactone 25 mg PO DAILY 11/27/17 Furosemide [Lasix] 80 mg PO DAILY 11/28/17 Active Medications Acetaminophen (Tylenol -) 325 mg PO Q6H PRN PRN Reason: PAIN LEVEL 6-10 Last Admin: 12/03/17 10:33 Dose: 325 mg Albuterol/Ipratropium (Duoneb -) 1 amp NEB Q6H PRN PRN Reason: SHORTNESS OF BREATH Last Admin: 11/30/17 20:40 Dose: 1 amp Clopidogrel Bisulfate (Plavix -) 75 mg PO DAILY [facility] Last Admin: 12/04/17 10:53 Dose: 75 mg Furosemide (Lasix -) 80 mg PO BID@0600,1400 [facility] Heparin Sodium (Porcine) (Heparin -) 5,000 unit SQ TID [facility] Last Admin: 12/04/17 07:01 Dose: 5,000 unit Levothyroxine Sodium (Synthroid -) 75 mcg PO DAILY@0700 [facility] Last Admin: 12/04/17 07:01 Dose: 75 mcg Metoprolol Succinate (Toprol Xl -) 100 mg PO DAILY [facility] Last Admin: 12/04/17 11:00 Dose: Not Given Nicotine (Nicoderm Patch -) 7 mg TD DAILY [facility] Last Admin: 12/04/17 10:53 Dose: 7 mg Sacubitril/Valsartan (Entresto 49 Mg-51 Mg Tablet) 1 tab PO BID [facility] Last Admin: 12/04/17 10:53 Dose: 1 tab Laboratory Results - last 24 hr 12/04/17 12/04/17 05:30 05:30 Sodium 139 Potassium 3.6 Chloride 97 L Carbon Dioxide 33 H Anion Gap 9 BUN 35 H Creatinine 1.5 H Creat Clearance w eGFR 34.96 Random Glucose 72 L Calcium 8.7 Phosphorus 4.5 Magnesium 2.2 Total Bilirubin 2.5 H Direct Bilirubin 2.0 H AST 37 ALT 21 Alkaline Phosphatase 103 Total Protein 7.2 Albumin 3.0 L ASSESSMENT AND PLAN: 62 year old woman with a history of HTN, HLD, DM, CAD status post [place] 2003, DVT, right hip replacement, CABG in 2003 with stents, systolic CHF s/p ICD pacemaker , COPD, current smoker, and hypothyroidism who presents to the ER via EMS for shortness of breath and found to be in acute systolic CHF -Acute on chronic systolic HF exacerbation -JAMAR, ?prerenal from CHF vs medication induced -Facial puffiness, ?from CHF vs allergic reaction. SVC syndrome low on differential (Limited Duplex upper extremities but neg in major vessels visualized) -Hypoglycemia -Hypernatremia, ?lab error, resolved -Acute transaminitis, suspect passive hepatic congestion from severely low EF -Mild troponin elevation, suspect demand induecd from above -Hypokalemia -Hypomagnesemia 0HTN -HLD Plan: Patient overall tachypneic, looks volume overloaded and suspect needs more diuresis. Cr rising. Discussed with Dr. Cage. Renal consult. Aldactone on hold for now. Entresto with caution for now. PO lasix for now. CT chest with contrast on hold given Jamar, and overall presentation not fully convincing for SVC syndrome currently. Duplex UE limited but Neg for DVT. CT chest non contrast to address pleural effusions/congestion to assist in diuresis and fluid management. BGM AC and hs. Trend LFTs. Anticipate needs aggressive diuresis Replete lytes prn. Continue statin DVTPPX with heparin Dispo likely [facility] vs cardiac rehab when clinically improved.
--- NOTE | 2017-12-04 13:58 | PN ---
Progress Note, Physician Chief Complaint: Pt A&Ox3; generalzied edema; no chest pain or dysnea. History of Present Illness: The patient is a 62 black F with a PMH of HTN, HLD, DM, CAD status post [place] 2003 , CABG in 2003 with stents, severe systolic CHF s/p ICD pacemaker, COPD current smoker, hypothyroid , anxiety/depression, who presents to the ER via EMS for shortness of breath. The patient is accompanied by her grandson who provides the history. The grandson states that the patient has had 4 months of worsening swelling and shortness of breath. The grandson states that he "finally convinced " his grandmother to come to the ER. The grandmother states that she does not feel well but does not provide any other history. - Current Medication List Current Medications: Active Medications Acetaminophen (Tylenol -) 325 mg PO Q6H PRN PRN Reason: PAIN LEVEL 6-10 Last Admin: 12/03/17 10:33 Dose: 325 mg Albuterol/Ipratropium (Duoneb -) 1 amp NEB Q6H PRN PRN Reason: SHORTNESS OF BREATH Last Admin: 11/30/17 20:40 Dose: 1 amp Clopidogrel Bisulfate (Plavix -) 75 mg PO DAILY [facility] Last Admin: 12/04/17 10:53 Dose: 75 mg Furosemide (Lasix -) 80 mg PO BID@0600,1400 [facility] Heparin Sodium (Porcine) (Heparin -) 5,000 unit SQ TID [facility] Last Admin: 12/04/17 07:01 Dose: 5,000 unit Levothyroxine Sodium (Synthroid -) 75 mcg PO DAILY@0700 [facility] Last Admin: 12/04/17 07:01 Dose: 75 mcg Metoprolol Succinate (Toprol Xl -) 100 mg PO DAILY [facility] Last Admin: 12/04/17 11:00 Dose: Not Given Nicotine (Nicoderm Patch -) 7 mg TD DAILY [facility] Last Admin: 12/04/17 10:53 Dose: 7 mg Sacubitril/Valsartan (Entresto 49 Mg-51 Mg Tablet) 1 tab PO BID [facility] Last Admin: 12/04/17 10:53 Dose: 1 tab - Objective Vital Signs: Vital Signs Temperature 98.0 F 12/04/17 09:05 Pulse Rate 58 L 12/04/17 09:05 Respiratory Rate 16 12/04/17 09:05 Blood Pressure 98/58 12/04/17 09:05 O2 Sat by Pulse Oximetry (%) 91 L 12/04/17 09:00 Constitutional: Yes: No Distress Eyes: Yes: Other (marked periorbital bilateral edema) Neck: Yes: Decreased ROM Cardiovascular: Yes: Bradycardia, S1, S2 (split) Respiratory: Yes: Diminished Gastrointestinal: Yes: Ascites, Distention ...Rectal Exam: Yes: Deferred Genitourinary: No: Anuria Breast(s): Yes: Other (edematous) Extremities: Yes: Cool Edema: Yes Edema: LLE: 1+, RLE: 1+ Peripheral Pulses WNL: No Peripheral Pulses: Left Doralis Pedis: 1+, Right Dorsalis Pedis: 1+ Integumentary: Yes: Venous Stasis Changes Neurological: Yes: Alert, Oriented, Weakness Psychiatric: Yes: Other Labs: CBC, BMP 11/29/17 05:30 12/04/17 05:30 Problem List - Problems (1) Elevated liver function tests Assessment/Plan: mildly elevated since admission; f/u serially with CHF treatment. Hx fatty liver. Code(s): R94.5 - ABNORMAL RESULTS OF LIVER FUNCTION STUDIES (2) AICD (automatic cardioverter/defibrillator) present Code(s): Z95.810 - PRESENCE OF AUTOMATIC (IMPLANTABLE) CARDIAC DEFIBRILLATOR (3) Acute on chronic systolic and diastolic heart failure, NYHA class 3 Assessment/Plan: Pt continues with generalzied edema; no weight loss since admission; urine output not mearusred. Discussed with Dr. Nath: Restart IV furosemide if agreed upon by admissions nurse; may need a 2nd agent. Repeat chest imaging (CXR, or, if able, CT chest). Code(s): I50.43 - ACUTE ON CHRONIC COMBINED SYSTOLIC AND DIASTOLIC HRT FAIL (4) Cigarette nicotine dependence Assessment/Plan: Pt refuses help to quit smoking (though, today, says she will now agree to the nicotine patch). 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 Diabetes mellitus complication status: with unspecified complications Qualified Code(s): E11.8 - Type 2 diabetes mellitus with unspecified complications (8) Fatty liver Code(s): K76.0 - FATTY (CHANGE OF) LIVER, NOT ELSEWHERE CLASSIFIED (9) Hyperlipidemia Code(s): E78.5 - HYPERLIPIDEMIA, UNSPECIFIED (10) Hypertension Code(s): I10 - ESSENTIAL (PRIMARY) HYPERTENSION (11) Hypothyroidism Code(s): E03.9 - HYPOTHYROIDISM, UNSPECIFIED (12) Peripheral neuropathy Code(s): G62.9 - POLYNEUROPATHY, UNSPECIFIED Qualifiers: Peripheral neuropathy type: polyneuropathy, unspecified Qualified Code(s): G62.9 - Polyneuropathy, unspecified (13) Sleep apnea Code(s): G47.30 - SLEEP APNEA, UNSPECIFIED (14) Status post THR (total hip replacement) Code(s): Z96.649 - PRESENCE OF UNSPECIFIED ARTIFICIAL HIP JOINT (15) Hypokalemia Code(s): E87.6 - HYPOKALEMIA (16) Chronic abdominal pain Code(s): R10.9 - UNSPECIFIED ABDOMINAL PAIN; G89.29 - OTHER CHRONIC PAIN (17) Facial swelling Code(s): R22.0 - LOCALIZED SWELLING, MASS AND LUMP, HEAD
[2017-12-04] MEDS ORDERED: FUROSEMIDE 40 MG TABLET (FP) PO SCH (14:00)
--- NOTE | 2017-12-04 16:52 | CON.NEP ---
Consult Consult Specialty:: Nephrology Reason for Consultation:: rising Bun/Cr since admission - History of Present Illness Chief Complaint: trouble breathing History of Present Illness: Ms brewer is a 62 y/o female with an extensive PMH. She was brought to [facility] ER by grandson with complaints of worsening dyspnea and increased leg swelling for the past couple of months. Patient states that she sleeps with multiple pillows at night and can barely walk a block before getting short of breath. She uses 5L of 02 at home. She is also complaining of abdominal pain mainly around her belly button area. She however, denies any chest pain or nausea/vomiting or any trouble urinating. Her Cr on admission (11/29/17) was 1.1 and has been on a steady increase and today it was 1.5. Her last echocardiogram back in 08/05 showed a very poor LV with an EF of 25%. 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 Had PEG placed 11/03 after suffering vocal cord damage ( EMS intubation). PEG was subsequently removed. ) Hepatobiliary: Yes: Cirrhosis (cardiac cirrhosis), Cholecystitis (s/p lap choly 05/05) Psych: Yes: Depression Musculoskeletal: Yes: Chronic low back pain, Osteoarthritis Endocrine: Yes: Hypothyroidism - Past Surgical History Past Surgical History: Yes: AICD, CABG, Cholecystectomy (05/05), Colonoscopy, Joint Replacement (right THR), Stent (X2) - Alcohol/Substance Use Hx Alcohol Use: No History of Substance Use: reports: None - Smoking History Smoking history: Current every day smoker Have you smoked in the past 12 months: Yes Aproximately how many cigarettes per day: 4 - Social History Usual Living Arrangement: Alone ADL: Independent 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 History of Recent Travel: No Home Medications - Allergies Allergies/Adverse Reactions: Allergies Allergy/AdvReac Type Severity Reaction Status Date / Time aspirin Allergy Mild Rash Verified 11/26/17 23:35 banana Allergy Hives Verified 11/26/17 23:35 tomato Allergy Verified 11/26/17 23:35 - Home Medications Home Medications: Ambulatory Orders Clopidogrel Bisulfate [Plavix -] 75 mg PO DAILY #30 tablet 08/02/17 Levothyroxine [Synthroid -] 75 mcg PO DAILY@0700 30 Days #30 tablet 08/02/17 Sacubitril/Valsartan [Entresto 24 mg-26 mg Tablet] 1 tab PO BID #60 tablet 08/14 Metoprolol Succinate 100 mg PO DAILY 11/27/17 Spironolactone 25 mg PO DAILY 11/27/17 Furosemide [Lasix] 80 mg PO DAILY 11/28/17 Family Disease History - Family Disease History Family Disease History: Diabetes: Sister (s/p CABG in her 50s), Heart Disease: Father (had unknown cancer), Mother (lived to ), Sister, [place]: Father Review of Systems - Review of Systems Cardiovascular: reports: Shortness of Breath Respiratory: reports: SOB, SOB on Exertion Gastrointestinal: reports: Abdominal Pain Genitourinary: denies: Burning, Dysuria, Hematuria Musculoskeletal: reports: Joint Pain Nephrology Consult - Height Height: 1.7 m - Weight Weight: 101.661 kg - BMI Body Mass Index (BMI): 35.1 - Lab Results CBC,BMP: CBC, BMP 11/29/17 05:30 12/04/17 05:30 Anion Gap: Anion Gap Anion Gap 9 (8-16) 12/04/17 05:30 - Physical Examination Vital Signs: Vital Signs Temperature 97.9 F 12/04/17 14:00 Pulse Rate 54 L 12/04/17 14:00 Respiratory Rate 16 12/04/17 09:05 Blood Pressure 99/46 12/04/17 14:00 O2 Sat by Pulse Oximetry (%) 91 L 12/04/17 09:00 Constitutional: Yes: Mild Distress Eyes: Yes: Other (b/l eyelid swelling/edema) Cardiovascular: Yes: Regular Rate and Rhythm, JVD, S1, S2. No: Murmur Respiratory: Yes: Diminished, Poor Air Entry, Tachypnea Gastrointestinal: Yes: Normal Bowel Sounds, Ascites, Distention, Tenderness ( TTP especially around belly button area). No: Soft Edema: Yes Edema: LLE: 2+, RLE: 2+ Neurological: Yes: Alert Problem List - Problems (1) LIANNA (acute kidney injury) Code(s): N17.9 - ACUTE KIDNEY FAILURE, UNSPECIFIED (2) Acute on chronic systolic and diastolic heart failure, NYHA class 3 Code(s): I50.43 - ACUTE ON CHRONIC COMBINED SYSTOLIC AND DIASTOLIC HRT FAIL (3) Chronic abdominal pain Code(s): R10.9 - UNSPECIFIED ABDOMINAL PAIN; G89.29 - OTHER CHRONIC PAIN Assessment/Plan LIANNA: -will switch from PO lasix back to 80 IV lasix BID -will add a one time dose of Spironolactone 25mg as another diuretic agent -place moran catheter in to monitor urine output -monitor Cr trend and CMP; monitor fluid status CHF: -will continue w diuresis -monitor Is and Os and daily weights
[2017-12-04] MEDS ORDERED: SPIRONOLACTONE 25 MG TABLET (FP) PO ONE (17:12)
--- NOTE | 2017-12-04 18:12 | PN ---
Teaching Attending Note Name of Resident: Vivian Germain (Nephrology) ATTENDING PHYSICIAN STATEMENT I saw and evaluated the patient. I reviewed the resident's note and discussed the case with the resident. I agree with the resident's findings and plan as documented. Nephrology Consult Pt is a 62 year old female with pmhx of HTN, HLD, DM, CAD CABG, CHF, COPD, active smoker, and hypothyroidism who presents to the ER with shortness of breath and edema. Pts edema has been worsening over the last 4 months. She denies chest pain. She was found to have elevated creatinine. I was called to evaluate her for volume overload. She had been refusing to come to the hospital but family finally talked her into it. pmhx chf cad copd htn hld pshx cabg alleriges aspirin banan tomato ros edema and shortness of breath fam hx non contrib soc active smoker Current Medications Generic Name Dose Route Start Last Admin Trade Name Freq PRN Reason Stop Dose Admin Acetaminophen 325 mg 12/01/17 21:01 12/03/17 10:33 Tylenol - PO 325 mg Q6H PRN Administration PAIN LEVEL 6-10 Albuterol/Ipratropium 1 amp 11/30/17 09:37 11/30/17 20:40 Duoneb - NEB 1 amp Q6H PRN Administration SHORTNESS OF BREATH Clopidogrel Bisulfate 75 mg 11/27/17 10:00 12/04/17 10:53 Plavix - PO 75 mg DAILY [facility] Administration Furosemide 80 mg 12/05/17 06:00 Lasix Injection - IVPB BID@0600,1400 [facility] Heparin Sodium (Porcine) 5,000 unit 11/27/17 06:00 12/04/17 14:51 Heparin - SQ 5,000 unit TID [facility] Administration Levothyroxine Sodium 75 mcg 11/27/17 07:00 12/04/17 07:01 Synthroid - PO 75 mcg DAILY@0700 [facility] Administration Metoprolol Succinate 100 mg 11/27/17 10:00 12/04/17 11:00 Toprol Xl - PO Not Given DAILY [facility] Nicotine 7 mg 11/27/17 10:00 12/04/17 10:53 Nicoderm Patch - TD 7 mg DAILY [facility] Administration Sacubitril/Valsartan 1 tab 12/01/17 22:00 12/04/17 10:53 Entresto 49 Mg-51 Mg Tablet PO 1 tab BID [facility] Administration Last Vital Signs Temp Pulse Resp BP Pulse Ox 97.9 F 54 L 16 99/46 91 L 12/04/17 14:00 12/04/17 14:00 12/04/17 09:05 12/04/17 14:00 12/04/17 09:00 Laboratory Tests 08/11/17 08/12/17 08/13/17 05:10 09:40 10:00 Hgb Hct Creatinine 1.0 1.0 1.1 H 11/28/17 11/29/17 11/29/17 05:30 05:30 05:30 Hgb 10.7 Hct 33.0 Creatinine 1.0 1.1 H 11/30/17 12/01/17 12/03/17 07:55 05:30 05:30 Hgb Hct Creatinine 1.1 H 1.2 H 1.3 H 12/04/17 05:30 Hgb Hct Creatinine 1.5 H Laboratory Tests 11/26/17 23:08 B-Natriuretic Peptide 3250.37 H cardio s1s2 pulm rhonchi gi soft, obese ext edema neuro awake and alert skin neg rash circ pos pulses Impression 1. LIANNA 2. CHF 3. volume overload 4. HTN 5. HLD 6. DM 7. CAD 8. COPD 9. active smoker Plan - change lasix to 80 iv bid, will give a dose now - restart aldactone - check daily weights - place moran and monitor ouput - discussed with cardiology - discussed with medical team - keep on tele - check tsh - check ua - discussed with resident Dr Lowry
[2017-12-04] MEDS ORDERED: FUROSEMIDE 40 MG/4 ML INJECTABLE VIAL IVPUSH ONE (18:30)
--- NOTE | 2017-12-04 20:37 | PN ---
Physical Exam: SUBJECTIVE: Patient seen and examined. No acute events over night. Pt. had a BM and passed urine. Pt. c/o difficulty breathing and irritation of the nasal cannula. Pt. c/o blurry vision and puffy eyes. OBJECTIVE: Vital Signs Period Temp Pulse Resp BP Sys/Santoro Pulse Ox Last 24 Hr 96.8 F-98.1 F 54-68 16-20 98-130/46-66 91-91 GENERAL: The patient was in mild distress, awake, alert and oriented LUNGS: Breath sounds equal, clear to auscultation bilaterally, no wheezes, no crackles, no accessory muscle use. HEART: Regular rate and rhythm, S1, S2, soft heart beat ABDOMEN: firm, diffusely tender to palpation, BS+, distended EXTREMITIES: warm, well-perfused, no edema, no calf pain. PSYCH: Normal mood, normal affect. SKIN: Warm, dry, normal turgor Laboratory Results - last 24 hr 12/04/17 12/04/17 12/04/17 05:30 05:30 17:16 Sodium 139 Potassium 3.6 Chloride 97 L Carbon Dioxide 33 H Anion Gap 9 BUN 35 H Creatinine 1.5 H Creat Clearance w eGFR 34.96 POC Glucometer 94 Random Glucose 72 L Calcium 8.7 Phosphorus 4.5 Magnesium 2.2 Total Bilirubin 2.5 H Direct Bilirubin 2.0 H AST 37 ALT 21 Alkaline Phosphatase 103 Total Protein 7.2 Albumin 3.0 L Active Medications Current Medications Acetaminophen (Tylenol -) 325 mg PO Q6H PRN PRN Reason: PAIN LEVEL 6-10 Last Admin: 12/03/17 10:33 Dose: 325 mg Albuterol/Ipratropium (Duoneb -) 1 amp NEB Q6H PRN PRN Reason: SHORTNESS OF BREATH Last Admin: 11/30/17 20:40 Dose: 1 amp Clopidogrel Bisulfate (Plavix -) 75 mg PO DAILY [facility] Last Admin: 12/04/17 10:53 Dose: 75 mg Furosemide (Lasix Injection -) 80 mg IVPB BID@0600,1400 [facility] Heparin Sodium (Porcine) (Heparin -) 5,000 unit SQ TID [facility] Last Admin: 12/04/17 14:51 Dose: 5,000 unit Levothyroxine Sodium (Synthroid -) 75 mcg PO DAILY@0700 [facility] Last Admin: 12/04/17 07:01 Dose: 75 mcg Metoprolol Succinate (Toprol Xl -) 100 mg PO DAILY [facility] Last Admin: 12/04/17 11:00 Dose: Not Given Nicotine (Nicoderm Patch -) 7 mg TD DAILY [facility] Last Admin: 12/04/17 10:53 Dose: 7 mg Sacubitril/Valsartan (Entresto 49 Mg-51 Mg Tablet) 1 tab PO BID [facility] Last Admin: 12/04/17 10:53 Dose: 1 tab Aldactone 25mg PO Last Admin: 12/04/17 1835 Dose: 1 tab ASSESSMENT/PLAN: 62 y/o female with PMH systolic CHF with EF 25% s/p ICD pacemaker, HTN, HLD, DM , COPD, hypothyroidism, CAD s/p CABG x2 and [place] 2003, presents with complaint of shortness of breath. CHF exacerbation -Last echo EF 25%, severely dilated and hypertrophic LV -ECG showed 1st degree heart block with PVC -Elevated troponins 0.06 -Troponins x 2 negative -Adjusted Lasix 80mg BID PO(12/02/17) -follow intake & outputs, daily weights: Weight on admission: 100.335kgs; Weight 12/03/17(101.423 kg), Weight Today(101.661 kg) -patient amenable to continued cardiac monitoring -Readjusted Lasix to 80mg BID IVP and Restarted Aldactone 25mg PO. -Pt. was unable to tolerate US Doppler to r/o Superior Vena Cava Syndrome, however Pt. is negative for SVC Syndome d/t patent subclavian and internal jugular vessels. Dyspnea -Continue oxygen 5L nasal canula -Duonebs Q6 hours -Pt. denies orthopnea today(12/03/17) Hypokalemia -Likely secondary to diuretic -Oral KCl -IV KCl [id number] X3 doses (11/27/17) -given 40 meq K-Dur @ 15:05 -resolved K+: 4.5 (11/29/17) Abdominal Pain -AST 42, Bili 2.9 on admission. -Abdominal U/S: R. Renal cyst 2.5cm, coarse echotexture suggestive of fatty infiltration or hepatocellular disease -reduced abdominal pain from admission, intermittent in nature. Hypoglycemia -given D50w 25gm TWICE, last dose 10/29/17 AM -monitoring blood glucose q6h -glucose has been above 50 during the day, currently at 83 (11/29/17). -Glucose 60 (11/30/17) -if glucose below 50, repeat D50w 25gm dose. -Asymptomatic: resolved HTN - c/w Metoprolol - c/w aldactone Hypothyroidism -Continue Synthroid DM -Insulin sliding scale -Fingerstick blood glucose monitoring Smoking -Nicotine patch -Pt. is amenable to starting the nicotine patch as of 12/03/17 Hypoalbuminemia -Title I Paraprofessional consult -likely 2/2 systolic CHF -elevated LFTs -appreciate abd. US FEN - No IV fluids at this time - Oral KCl and IVKCl Q4 hours X 3 doses (11/27/17)---> K+: 3.8 on rpt. AM labs ()-->Given an additional 40meq at 15:05 (11/28/17) - Diabetic/ Low sodium diet - Magnesium: 1.5 (11/27/17)--> Given Mg Sulfate, M.1 on rpt labs (11/28/17) - resolved - Fluid restriction to 1L - Strict Is and Os - Appreciated Nephrology Consult. - Placed Lam(12/04/17) Dispo - patient lives at home by herself - no longer has VNS or home health aide - Pt. amenable to going to [facility] for rehabilitation or any other SNF EXCEPT [facility] - Appreciated Palliative Care note (12/04/17). We will f/u with DNR/DNI status at a later time. Visit type - Emergency Visit Emergency Visit: Yes ED Registration Date: 11/27/17 Care time: The patient presented to the Emergency Department on the above date and was hospitalized for further evaluation of their emergent condition. - New Patient This patient is new to me today: No - Critical Care Critical Care patient: No - Discharge Referral Referred to [facility] No
[2017-12-04 23:02] LABS: URINE APPEARANCE CLEAR; URINE BILIRUBIN NEGATIVE (<2.0 mg/dL); URINE COLOR LTYELLOW; URINE GLUCOSE (UA) NEGATIVE (NEGATIVE); URINE KETONE NEGATIVE (NEGATIVE); URINE LEUK ESTERASE NEGATIVE (NEGATIVE); URINE NITRITE NEGATIVE (NEGATIVE); URINE PROTEIN NEGATIVE (NEGATIVE)
[2017-12-05] MEDS: HEPARIN NA (PORCINE) 5,000 UNITS/ML 1ML VIAL SQ SCH ×3 (05:48→22:01)
[2017-12-05] MEDS: FUROSEMIDE 100 MG/10 ML INJECTABLE VIAL IVPB SCH ×2 (05:48→13:54)
[2017-12-05 06:31] LABS: BASO % 0.6 % (0-2.0); HEMATOCRIT 30.8 % (32.4-45.2); HEMOGLOBIN 10.1 GM/dL (10.7-15.3); LYMPH % 22.8 % (8-40); MCH 28.2 pg (25.7-33.7); MCHC 32.7 g/dl (32.0-36.0); MEAN CELL VOLUME 86.3 fl (80-96); MEAN PLT VOLUME 8.4 fl (7.5-11.1); MONO % 19.4 % (3.8-10.2); NEUT % 57.2 % (42.8-82.8); PLATELET COUNT 137 K/MM3 (134-434); RBC 3.57 M/mm3 (3.60-5.2); RDW 16.9 % (11.6-15.6); WHITE BLOOD COUNT 4.2 K/mm3 (4.0-10.0)
[2017-12-05] MEDS: LEVOTHYROXINE NA 75 MCG TABLET (FP) PO SCH (07:00)
[2017-12-05 08:15] LABS: ALBUMIN 2.7 g/dl (3.4-5.0); ANION GAP 9 (8-16); BILIRUBIN,TOTAL 2.1 mg/dL (0.2-1.0); BLOOD UREA NITROGEN 35 mg/dL (7-18); CALCIUM 8.4 mg/dL (8.5-10.1); CHLORIDE 99 mmol/L (98-107); CO2 34 mmol/L (21-32); CREATININE 1.3 mg/dL (0.55-1.02); GLUCOSE,RANDOM 111 mg/dL (74-106); MAGNESIUM 1.9 mg/dL (1.8-2.4); PHOSPHOROUS 3.6 mg/dL (2.5-4.9); POTASSIUM 3.3 mmol/L (3.5-5.1); SGOT/AST 36 U/L (15-37); SGPT/ALT 19 U/L (12-78); SODIUM 142 mmol/L (136-145); TOT PROT 6.9 g/dl (6.4-8.2)
[2017-12-05 08:24] LABS: ALK PHOS 103 U/L (45-117)
[2017-12-05] MEDS ORDERED: POTASSIUM CHLORIDE TABS 20 MEQ TABLET.ER (FP) PO ONE (08:52)
[2017-12-05] MEDS: SACUBITRIL/VALSARTAN 49 MG-51 MG TABLET PO SCH ×2 (09:24→22:02)
[2017-12-05] MEDS: CLOPIDOGREL BISULFATE 75 MG TABLET (FP) PO SCH (09:24)
[2017-12-05] MEDS: NICOTINE 7 MG/24 HOURS TOPICAL PATCH TD SCH (09:24)
--- NOTE | 2017-12-05 10:58 | PN ---
Progress Note, Physician History of Present Illness: The patient is a 62 yr old black F with a PMH of HTN, HLD, DM, CAD status post [place] 2003, CABG in 2003 with stents, severe systolic CHF s/p ICD, COPD current smoker, hypothyroid who presents to the ER via EMS for shortness of breath. The patient is accompanied by her grandson who provides the history. The grandson states that the patient has had 4 months of worsening swelling and shortness of breath. The grandson states that he "finally convinced" his grandmother to come to the ER. The grandmother states that she does not feel well but does not provide any other history. Pt had self-reduced furosemide at home from 80 mg bid to 20 mg bid for the past ?few weeks. - Current Medication List Current Medications: Active Medications Acetaminophen (Tylenol -) 325 mg PO Q6H PRN PRN Reason: PAIN LEVEL 6-10 Last Admin: 12/03/17 10:33 Dose: 325 mg Albuterol/Ipratropium (Duoneb -) 1 amp NEB Q6H PRN PRN Reason: SHORTNESS OF BREATH Last Admin: 11/30/17 20:40 Dose: 1 amp Clopidogrel Bisulfate (Plavix -) 75 mg PO DAILY [facility] Last Admin: 12/05/17 09:24 Dose: 75 mg Furosemide (Lasix Injection -) 80 mg IVPB BID@0600,1400 [facility] Last Admin: 12/05/17 05:48 Dose: 80 mg Heparin Sodium (Porcine) (Heparin -) 5,000 unit SQ TID [facility] Last Admin: 12/05/17 05:48 Dose: 5,000 unit Levothyroxine Sodium (Synthroid -) 75 mcg PO DAILY@0700 [facility] Last Admin: 12/04/17 07:01 Dose: 75 mcg Metoprolol Succinate (Toprol Xl -) 100 mg PO DAILY [facility] Last Admin: 12/05/17 09:24 Dose: 100 mg Nicotine (Nicoderm Patch -) 7 mg TD DAILY [facility] Last Admin: 12/05/17 09:24 Dose: 7 mg Sacubitril/Valsartan (Entresto 49 Mg-51 Mg Tablet) 1 tab PO BID [facility] Last Admin: 12/05/17 09:24 Dose: 1 tab - Objective Vital Signs: Vital Signs Temperature 98.7 F 12/05/17 06:23 Pulse Rate 62 12/05/17 06:23 Respiratory Rate 20 12/05/17 06:23 Blood Pressure 107/56 12/05/17 06:23 O2 Sat by Pulse Oximetry (%) 96 12/04/17 22:00 Eyes: Yes: WNL, Conjunctiva Clear, EOM Intact HENT: Yes: WNL, Atraumatic, Normocephalic Neck: Yes: WNL, Supple, Trachea Midline Cardiovascular: Yes: WNL, Regular Rate and Rhythm Respiratory: Yes: WNL, Regular, CTA Bilaterally Gastrointestinal: Yes: WNL, Normal Bowel Sounds Genitourinary: Yes: WNL Musculoskeletal: Yes: WNL Extremities: Yes: WNL Edema: Yes Edema: LLE: 2+, RLE: 2+ Integumentary: Yes: WNL Neurological: Yes: WNL, Alert, Oriented ...Motor Strength: WNL Psychiatric: Yes: WNL Labs: CBC, BMP 12/05/17 05:30 12/05/17 05:30 Assessment/Plan - Problems (1) Elevated liver function tests Code(s): R94.5 - ABNORMAL RESULTS OF LIVER FUNCTION STUDIES (2) AICD (automatic cardioverter/defibrillator) present Code(s): Z95.810 - PRESENCE OF AUTOMATIC (IMPLANTABLE) CARDIAC DEFIBRILLATOR (3) Acute on chronic systolic and diastolic heart failure, NYHA class 3 Assessment/Plan: Pt continues with generalzied edema; no weight loss since admission; urine output not mearusred. Discussed with Dr. Nath: Restart IV furosemide if agreed upon by principal technical writer; may need a 2nd agent. Repeat chest imaging (CXR, or, if able, CT chest). Code(s): I50.43 - ACUTE ON CHRONIC COMBINED SYSTOLIC AND DIASTOLIC HRT FAIL (4) Cigarette nicotine dependence Code(s): F17.210 - NICOTINE DEPENDENCE, CIGARETTES, UNCOMPLICATED (5) COPD (chronic obstructive pulmonary disease) Code(s): J44.9 - CHRONIC OBSTRUCTIVE PULMONARY DISEASE, UNSPECIFIED (6) Coronary artery disease Code(s): I25.10 - ATHSCL HEART DISEASE OF [place] CORONARY ARTERY W/O ANG PCTRS (7) Diabetes Code(s): E11.9 - TYPE 2 DIABETES MELLITUS WITHOUT COMPLICATIONS Qualifiers: Diabetes mellitus type: type 2 Diabetes mellitus emt intermediate insulin use: with emt intermediate use Diabetes mellitus complication status: with unspecified complications Qualified Code(s): E11.8 - Type 2 diabetes mellitus with unspecified complications (8) Fatty liver Code(s): K76.0 - FATTY (CHANGE OF) LIVER, NOT ELSEWHERE CLASSIFIED (9) Hyperlipidemia Code(s): E78.5 - HYPERLIPIDEMIA, UNSPECIFIED (10) Hypertension Code(s): I10 - ESSENTIAL (PRIMARY) HYPERTENSION (11) Hypothyroidism Code(s): E03.9 - HYPOTHYROIDISM, UNSPECIFIED (12) Peripheral neuropathy Code(s): G62.9 - POLYNEUROPATHY, UNSPECIFIED Qualifiers: Peripheral neuropathy type: polyneuropathy, unspecified Qualified Code(s): G62.9 - Polyneuropathy, unspecified (13) Sleep apnea Code(s): G47.30 - SLEEP APNEA, UNSPECIFIED (14) Status post THR (total hip replacement) Code(s): Z96.649 - PRESENCE OF UNSPECIFIED ARTIFICIAL HIP JOINT (15) Hypokalemia Code(s): E87.6 - HYPOKALEMIA (16) Chronic abdominal pain Code(s): R10.9 - UNSPECIFIED ABDOMINAL PAIN; G89.29 - OTHER CHRONIC PAIN (17) Facial swelling Code(s): R22.0 - LOCALIZED SWELLING, MASS AND LUMP, HEAD
--- NOTE | 2017-12-05 11:52 | PN ---
Progress Note, Physician History of Present Illness: no acute events overnight. patient seemed more lethargic this am. she is still having trouble breathing and stated that she did not sleep well through the night. still very volume overloaded. she has been urinating frequently. she denies any CP, however, is having some L breast tenderness and swelling. - Current Medication List Current Medications: Active Medications Acetaminophen (Tylenol -) 325 mg PO Q6H PRN PRN Reason: PAIN LEVEL 6-10 Last Admin: 12/03/17 10:33 Dose: 325 mg Albuterol/Ipratropium (Duoneb -) 1 amp NEB Q6H PRN PRN Reason: SHORTNESS OF BREATH Last Admin: 11/30/17 20:40 Dose: 1 amp Clopidogrel Bisulfate (Plavix -) 75 mg PO DAILY [facility] Last Admin: 12/05/17 09:24 Dose: 75 mg Furosemide (Lasix Injection -) 80 mg IVPB BID@0600,1400 [facility] Last Admin: 12/05/17 05:48 Dose: 80 mg Heparin Sodium (Porcine) (Heparin -) 5,000 unit SQ TID [facility] Last Admin: 12/05/17 05:48 Dose: 5,000 unit Levothyroxine Sodium (Synthroid -) 75 mcg PO DAILY@0700 [facility] Last Admin: 12/04/17 07:01 Dose: 75 mcg Metoprolol Succinate (Toprol Xl -) 100 mg PO DAILY [facility] Last Admin: 12/05/17 09:24 Dose: 100 mg Nicotine (Nicoderm Patch -) 7 mg TD DAILY [facility] Last Admin: 12/05/17 09:24 Dose: 7 mg Sacubitril/Valsartan (Entresto 49 Mg-51 Mg Tablet) 1 tab PO BID [facility] Last Admin: 12/05/17 09:24 Dose: 1 tab - Objective Vital Signs: Vital Signs Temperature 98.7 F 12/05/17 06:23 Pulse Rate 62 12/05/17 06:23 Respiratory Rate 20 12/05/17 09:00 Blood Pressure 107/56 12/05/17 06:23 O2 Sat by Pulse Oximetry (%) 96 12/05/17 09:00 Cardiovascular: Yes: Regular Rate and Rhythm, Murmur Respiratory: Yes: Diminished (diminished breath shounds at the bases) Gastrointestinal: Yes: Normal Bowel Sounds, Abdomen, Obese, Ascites, Distention , Tenderness (tender around belly button area) Breast(s): Yes: Left (swollen, warm to touch) Edema: Yes Edema: LLE: 2+, RLE: 2+ Labs: CBC, BMP 12/05/17 05:30 12/05/17 05:30 Problem List - Problems (1) LIANNA (acute kidney injury) Code(s): N17.9 - ACUTE KIDNEY FAILURE, UNSPECIFIED (2) Acute on chronic systolic and diastolic heart failure, NYHA class 3 Code(s): I50.43 - ACUTE ON CHRONIC COMBINED SYSTOLIC AND DIASTOLIC HRT FAIL (3) Chronic abdominal pain Code(s): R10.9 - UNSPECIFIED ABDOMINAL PAIN; G89.29 - OTHER CHRONIC PAIN Assessment/Plan -continue to monitor daily weights and I's and O's -start spironolactone 50mg daily -continue with IV lasix 80 BID -monitor CMP
--- NOTE | 2017-12-05 12:10 | PN ---
Teaching Attending Note Name of Resident: Vivian Germain (Nephrology) ATTENDING PHYSICIAN STATEMENT I saw and evaluated the patient. I reviewed the resident's note and discussed the case with the resident. I agree with the resident's findings and plan as documented. Renal Pt seen and examined at bedside. She is lethargic today. Current Medications Generic Name Dose Route Start Last Admin Trade Name Freq PRN Reason Stop Dose Admin Acetaminophen 325 mg 12/01/17 21:01 12/03/17 10:33 Tylenol - PO 325 mg Q6H PRN Administration PAIN LEVEL 6-10 Albuterol/Ipratropium 1 amp 11/30/17 09:37 11/30/17 20:40 Duoneb - NEB 1 amp Q6H PRN Administration SHORTNESS OF BREATH Clopidogrel Bisulfate 75 mg 11/27/17 10:00 12/05/17 09:24 Plavix - PO 75 mg DAILY [facility] Administration Furosemide 80 mg 12/05/17 06:00 12/05/17 05:48 Lasix Injection - IVPB 80 mg BID@0600,1400 [facility] Administration Heparin Sodium (Porcine) 5,000 unit 11/27/17 06:00 12/05/17 05:48 Heparin - SQ 5,000 unit TID [facility] Administration Levothyroxine Sodium 75 mcg 11/27/17 07:00 12/04/17 07:01 Synthroid - PO 75 mcg DAILY@0700 [facility] Administration Metoprolol Succinate 100 mg 11/27/17 10:00 12/05/17 09:24 Toprol Xl - PO 100 mg DAILY [facility] Administration Nicotine 7 mg 11/27/17 10:00 12/05/17 09:24 Nicoderm Patch - TD 7 mg DAILY [facility] Administration Sacubitril/Valsartan 1 tab 12/01/17 22:00 12/05/17 09:24 Entresto 49 Mg-51 Mg Tablet PO 1 tab BID [facility] Administration Laboratory Tests 12/05/17 05:30 Potassium 3.3 L BUN 35 H Creatinine 1.3 H Magnesium 1.9 Last Vital Signs Temp Pulse Resp BP Pulse Ox 98.7 F 62 20 107/56 96 12/05/17 06:23 12/05/17 06:23 12/05/17 09:00 12/05/17 06:23 12/05/17 09:00 Laboratory Tests 12/04/17 12/05/17 22:55 05:30 TSH 0.96 Urine Protein Negative Urine Blood Negative cardio s1s2 pulm rhonchi GI soft obese ext edema neuro lethargic skin neg rash Impression 1. LIANNA 2. CHF 3. volume overload 4. HTN 5. HLD 6. DM 7. CAD 8. COPD 9. active smoker 10. anasarca 11. hypokalemia Plan - cont lasix - will give spironolactone - monitor urine output - discussed with medical team - check daily weights - discussed with medical team - keep on tele
[2017-12-05] MEDS: SPIRONOLACTONE 25 MG TABLET (FP) PO SCH (12:17)
--- NOTE | 2017-12-05 13:04 | PN ---
Teaching Attending Note Name of Resident: Onesimo Simmons ATTENDING PHYSICIAN STATEMENT I saw and evaluated the patient. I reviewed the resident's note and discussed the case with the resident. I agree with the resident's findings and plan as documented with exceptions below. SUBJECTIVE: Patient seen and examined, overall unchanged, no new pain or concerns, Minimal interaction during the interview. OBJECTIVE: Vital Signs Period Temp Pulse Resp BP Sys/Santoro Pulse Ox Last 24 Hr 97.5 F-98.7 F 54-63 20-20 99-141/46-67 96-96 Intake & Output 12/02/17 12/03/17 12/04/17 12/05/17 23:59 23:59 23:59 23:59 Intake Total 240 520 616 50 Output Total 200 650 Balance 240 520 416 -600 Weight 223 lb 223 lb 9.6 oz 224 lb 2 oz General: sleeping but arousable in bed HEENT: facial puffiness improved, eyelid swelling better Neck; positive JVD Chest: decreased effort, decreased breath sounds at bases Chest: extensive subcutaneous edema bilateral breast symmetrically and chest wall, no erythema/warmth or tenderness noted Abdomen:soft, ?distension, NT throughout Extremities: 2+ pedal edema Home Medications Medication Instructions Recorded Clopidogrel Bisulfate [Plavix -] 75 mg PO DAILY #30 tablet 08/02/17 Levothyroxine [Synthroid -] 75 mcg PO DAILY@0700 30 Days #30 08/02/17 tablet Sacubitril/Valsartan [Entresto 24 1 tab PO BID #60 tablet 08/14/17 mg-26 mg Tablet] Metoprolol Succinate 100 mg PO DAILY 11/27/17 Spironolactone 25 mg PO DAILY 11/27/17 Furosemide [Lasix] 80 mg PO DAILY 11/28/17 Active Medications Acetaminophen (Tylenol -) 325 mg PO Q6H PRN PRN Reason: PAIN LEVEL 6-10 Last Admin: 12/03/17 10:33 Dose: 325 mg Albuterol/Ipratropium (Duoneb -) 1 amp NEB Q6H PRN PRN Reason: SHORTNESS OF BREATH Last Admin: 11/30/17 20:40 Dose: 1 amp Clopidogrel Bisulfate (Plavix -) 75 mg PO DAILY [facility] Last Admin: 12/05/17 09:24 Dose: 75 mg Furosemide (Lasix Injection -) 80 mg IVPB BID@0600,1400 [facility] Last Admin: 12/05/17 05:48 Dose: 80 mg Heparin Sodium (Porcine) (Heparin -) 5,000 unit SQ TID [facility] Last Admin: 12/05/17 05:48 Dose: 5,000 unit Levothyroxine Sodium (Synthroid -) 75 mcg PO DAILY@0700 [facility] Last Admin: 12/04/17 07:01 Dose: 75 mcg Metoprolol Succinate (Toprol Xl -) 100 mg PO DAILY [facility] Last Admin: 12/05/17 09:24 Dose: 100 mg Nicotine (Nicoderm Patch -) 7 mg TD DAILY [facility] Last Admin: 12/05/17 09:24 Dose: 7 mg Sacubitril/Valsartan (Entresto 49 Mg-51 Mg Tablet) 1 tab PO BID [facility] Last Admin: 12/05/17 09:24 Dose: 1 tab Spironolactone (Aldactone -) 50 mg PO DAILY [facility] Last Admin: 12/05/17 12:17 Dose: 50 mg Laboratory Results - last 24 hr 12/04/17 12/04/17 12/04/17 17:16 22:55 22:58 WBC RBC Hgb Hct MCV MCH MCHC RDW Plt Count MPV Absolute Neuts (auto) Neutrophils % Lymphocytes % Monocytes % Eosinophils % Basophils % Nucleated RBC % Sodium Potassium Chloride Carbon Dioxide Anion Gap BUN Creatinine Creat Clearance w eGFR POC Glucometer 94 84 Random Glucose Calcium Phosphorus Magnesium Total Bilirubin AST ALT Alkaline Phosphatase Total Protein Albumin TSH Urine Color Ltyellow Urine Appearance Clear Urine pH 5.0 Ur Specific [place] 1.006 Urine Protein Negative Urine Glucose (UA) Negative Urine Ketones Negative Urine Blood Negative Urine Nitrite Negative Urine Bilirubin Negative Urine Urobilinogen 2.0 H Ur Leukocyte Esterase Negative 12/05/17 12/05/17 12/05/17 05:30 05:30 06:25 WBC 4.2 RBC 3.57 L Hgb 10.1 L Hct 30.8 L MCV 86.3 MCH 28.2 MCHC 32.7 RDW 16.9 H Plt Count 137 MPV 8.4 Absolute Neuts (auto) 2.4 Neutrophils % 57.2 Lymphocytes % 22.8 Monocytes % 19.4 H Eosinophils % 0.0 Basophils % 0.6 Nucleated RBC % 0 Sodium 142 Potassium 3.3 L Chloride 99 Carbon Dioxide 34 H Anion Gap 9 BUN 35 H Creatinine 1.3 H Creat Clearance w eGFR 41.24 POC Glucometer 116 Random Glucose 111 H Calcium 8.4 L Phosphorus 3.6 Magnesium 1.9 Total Bilirubin 2.1 H AST 36 ALT 19 Alkaline Phosphatase 103 Total Protein 6.9 Albumin 2.7 L TSH 0.96 Urine Color Urine Appearance Urine pH Ur Specific [place] Urine Protein Urine Glucose (UA) Urine Ketones Urine Blood Urine Nitrite Urine Bilirubin Urine Urobilinogen Ur Leukocyte Esterase 12/05/17 11:29 WBC RBC Hgb Hct MCV MCH MCHC RDW Plt Count MPV Absolute Neuts (auto) Neutrophils % Lymphocytes % Monocytes % Eosinophils % Basophils % Nucleated RBC % Sodium Potassium Chloride Carbon Dioxide Anion Gap BUN Creatinine Creat Clearance w eGFR POC Glucometer 125 Random Glucose Calcium Phosphorus Magnesium Total Bilirubin AST ALT Alkaline Phosphatase Total Protein Albumin TSH Urine Color Urine Appearance Urine pH Ur Specific [place] Urine Protein Urine Glucose (UA) Urine Ketones Urine Blood Urine Nitrite Urine Bilirubin Urine Urobilinogen Ur Leukocyte Esterase CT chest _ right pleural effusion, subcutaneous edema ASSESSMENT AND PLAN: 62 year old woman with a history of HTN, HLD, DM, CAD status post [place] 2003, DVT, right hip replacement, CABG in 2003 with stents, systolic CHF s/p ICD pacemaker , COPD, current smoker, and hypothyroidism who presents to the ER via EMS for shortness of breath and found to be in acute systolic CHF -Acute on chronic systolic HF exacerbation with anasarca -LIANNA, likely from CHF+/ medication induced -Facial puffiness, likely from CHF as improved with diuresis -Hypoglycemia -Hypernatremia, ?lab error, resolved -Acute transaminitis, suspect passive hepatic congestion from severely low EF, improved -Mild troponin elevation, suspect demand induced from above -Hypokalemia -Hypomagnesemia -HTN -HLD Plan: Clinically improved, Continue lasix 80 mg IV BID. Discussed with Dr. Lowry, resume spironolactone. Renal function and volume status responding well, still with significant edema. CT chest noted. Cardiology input appreciated, Continue entresto. Monitor Renal function, strict I/Os (Lam placed) and daily weights. BGM AC and hs. Trend LFTs. Anticipate needs aggressive diuresis Replete lytes prn. Continue statin DVTPPX with heparin Dispo likely [facility] vs cardiac rehab when clinically improved. Palliative care input to address overall goals of care as concerns for progressive deterioration and non compliance. Plan discussed with patient and all questions answered.
--- NOTE | 2017-12-05 19:54 | PN ---
Physical Exam: SUBJECTIVE: Patient seen and examined. Pt. had no acute events overnight. Per nurse Pt. has swollen breasts. Pt. endorses feeling the same as yesterday. Denies chest pain or increased SOB. OBJECTIVE: Vital Signs Period Temp Pulse Resp BP Sys/Santoro Pulse Ox Last 24 Hr 97.5 F-98.7 F 59-63 20-20 107-141/50-73 96-96 GENERAL: The patient is awake, alert, and fully oriented, in no acute distress. EYES: reduced swelling around eyes LUNGS: Breath sounds equal, clear to auscultation bilaterally, no accessory muscle use- limited d/t body habitus BREAST: L>R looks swollen and mildly erythematous HEART: Regular rate and rhythm, S1, S2 without murmur ABDOMEN: Soft, nontender, distended, normoactive bowel sounds, no guarding EXTREMITIES: warm, well-perfused, no edema. PSYCH: Normal mood, normal affect. SKIN: Warm, dry, normal turgor, no rashes or lesions noted Laboratory Results - last 24 hr 12/04/17 12/04/17 12/05/17 22:55 22:58 05:30 WBC 4.2 RBC 3.57 L Hgb 10.1 L Hct 30.8 L MCV 86.3 MCH 28.2 MCHC 32.7 RDW 16.9 H Plt Count 137 MPV 8.4 Absolute Neuts (auto) 2.4 Neutrophils % 57.2 Lymphocytes % 22.8 Monocytes % 19.4 H Eosinophils % 0.0 Basophils % 0.6 Nucleated RBC % 0 Sodium Potassium Chloride Carbon Dioxide Anion Gap BUN Creatinine Creat Clearance w eGFR POC Glucometer 84 Random Glucose Calcium Phosphorus Magnesium Total Bilirubin AST ALT Alkaline Phosphatase Total Protein Albumin TSH Urine Color Ltyellow Urine Appearance Clear Urine pH 5.0 Ur Specific [place] 1.006 Urine Protein Negative Urine Glucose (UA) Negative Urine Ketones Negative Urine Blood Negative Urine Nitrite Negative Urine Bilirubin Negative Urine Urobilinogen 2.0 H Ur Leukocyte Esterase Negative 12/05/17 12/05/17 12/05/17 05:30 06:25 11:29 WBC RBC Hgb Hct MCV MCH MCHC RDW Plt Count MPV Absolute Neuts (auto) Neutrophils % Lymphocytes % Monocytes % Eosinophils % Basophils % Nucleated RBC % Sodium 142 Potassium 3.3 L Chloride 99 Carbon Dioxide 34 H Anion Gap 9 BUN 35 H Creatinine 1.3 H Creat Clearance w eGFR 41.24 POC Glucometer 116 125 Random Glucose 111 H Calcium 8.4 L Phosphorus 3.6 Magnesium 1.9 Total Bilirubin 2.1 H AST 36 ALT 19 Alkaline Phosphatase 103 Total Protein 6.9 Albumin 2.7 L TSH 0.96 Urine Color Urine Appearance Urine pH Ur Specific [place] Urine Protein Urine Glucose (UA) Urine Ketones Urine Blood Urine Nitrite Urine Bilirubin Urine Urobilinogen Ur Leukocyte Esterase 12/05/17 16:42 WBC RBC Hgb Hct MCV MCH MCHC RDW Plt Count MPV Absolute Neuts (auto) Neutrophils % Lymphocytes % Monocytes % Eosinophils % Basophils % Nucleated RBC % Sodium Potassium Chloride Carbon Dioxide Anion Gap BUN Creatinine Creat Clearance w eGFR POC Glucometer 80 Random Glucose Calcium Phosphorus Magnesium Total Bilirubin AST ALT Alkaline Phosphatase Total Protein Albumin TSH Urine Color Urine Appearance Urine pH Ur Specific [place] Urine Protein Urine Glucose (UA) Urine Ketones Urine Blood Urine Nitrite Urine Bilirubin Urine Urobilinogen Ur Leukocyte Esterase Active Medications Current Medications Acetaminophen (Tylenol -) 325 mg PO Q6H PRN PRN Reason: PAIN LEVEL 6-10 Last Admin: 12/03/17 10:33 Dose: 325 mg Albuterol/Ipratropium (Duoneb -) 1 amp NEB Q6H PRN PRN Reason: SHORTNESS OF BREATH Last Admin: 11/30/17 20:40 Dose: 1 amp Clopidogrel Bisulfate (Plavix -) 75 mg PO DAILY [facility] Last Admin: 12/05/17 09:24 Dose: 75 mg Furosemide (Lasix Injection -) 80 mg IVPB BID@0600,1400 [facility] Last Admin: 12/05/17 13:54 Dose: 80 mg Heparin Sodium (Porcine) (Heparin -) 5,000 unit SQ TID [facility] Last Admin: 12/05/17 13:54 Dose: 5,000 unit Levothyroxine Sodium (Synthroid -) 75 mcg PO DAILY@0700 [facility] Last Admin: 12/05/17 07:00 Dose: Not Given Metoprolol Succinate (Toprol Xl -) 100 mg PO DAILY [facility] Last Admin: 12/05/17 09:24 Dose: 100 mg Nicotine (Nicoderm Patch -) 7 mg TD DAILY [facility] Last Admin: 12/05/17 09:24 Dose: 7 mg Sacubitril/Valsartan (Entresto 49 Mg-51 Mg Tablet) 1 tab PO BID [facility] Last Admin: 12/05/17 09:24 Dose: 1 tab Spironolactone (Aldactone -) 50 mg PO DAILY [facility] Last Admin: 12/05/17 12:17 Dose: 50 mg ASSESSMENT/PLAN: 62 y/o female with PMH systolic CHF with EF 25% s/p ICD pacemaker, HTN, HLD, DM , COPD, hypothyroidism, CAD s/p CABG x2 and [place] 2003, presents with complaint of shortness of breath. CHF exacerbation -Last echo EF 25%, severely dilated and hypertrophic LV -ECG showed 1st degree heart block with PVC -Elevated troponins 0.06 -Troponins x 2 negative -Adjusted Lasix 80mg BID PO(12/02/17) -follow intake & outputs, daily weights: Weight on admission: 100.335kgs; Weight 12/03/17(101.423 kg), Weight Today(101.661 kg) -patient amenable to continued cardiac monitoring -Readjusted Lasix to 80mg BID IVP and Restarted Aldactone 25mg PO. -Pt. was unable to tolerate US Doppler to r/o Superior Vena Cava Syndrome, however Pt. is negative for SVC Syndome d/t patent subclavian and internal jugular vessels. Dyspnea -Continue oxygen 5L nasal canula -Duonebs Q6 hours -Pt. denies orthopnea today(12/03/17) -CTScan-extensive edematous changes throughout the subcutaneous tissues of the chest, upper abdomen and both breasts. Moderate pleural effusion of the right breast. Hypokalemia -Likely secondary to diuretic -Oral KCl -IV KCl [id number] X3 doses (11/27/17) -given 40 meq K-Dur @ 15:05 -resolved K+: 4.5 (11/29/17) Abdominal Pain -AST 42, Bili 2.9 on admission. -Abdominal U/S: R. Renal cyst 2.5cm, coarse echotexture suggestive of fatty infiltration or hepatocellular disease -reduced abdominal pain from admission, intermittent in nature. Hypoglycemia -given D50w 25gm TWICE, last dose 10/29/17 AM -monitoring blood glucose q6h -glucose has been above 50 during the day, currently at 83 (11/29/17). -Glucose 60 (11/30/17) -if glucose below 50, repeat D50w 25gm dose. -Asymptomatic: resolved HTN - c/w Metoprolol - c/w aldactone Hypothyroidism -Continue Synthroid DM -Insulin sliding scale -Fingerstick blood glucose monitoring Smoking -Nicotine patch -Pt. is amenable to starting the nicotine patch as of 12/03/17 Hypoalbuminemia -Needle Setter consult -likely 2/2 systolic CHF -elevated LFTs -appreciate abd. US FEN - No IV fluids at this time - Oral KCl and IVKCl Q4 hours X 3 doses (11/27/17)---> K+: 3.8 on rpt. AM labs ()-->Given an additional 40meq at 15:05 (11/28/17) - Diabetic/ Low sodium diet - Magnesium: 1.5 (11/27/17)--> Given Mg Sulfate, M.1 on rpt labs (11/28/17) - resolved - Fluid restriction to 1L - Strict Is and Os - Appreciated Nephrology Consult. - Placed Lam(12/04/17)- Good urine output 650ml (12/05/17) Dispo - patient lives at home by herself - no longer has VNS or home health aide - Pt. amenable to going to [facility] for rehabilitation or any other SNF EXCEPT [facility] - Appreciated Palliative Care note (12/04/17). We will f/u with DNR/DNI status at a later time. Visit type - Emergency Visit Emergency Visit: Yes ED Registration Date: 11/27/17 Care time: The patient presented to the Emergency Department on the above date and was hospitalized for further evaluation of their emergent condition. - New Patient This patient is new to me today: No - Critical Care Critical Care patient: No - Discharge Referral Referred to [facility] No
[2017-12-05] MEDS: ALBUTEROL SO4 2.5/IPRATROPIUM 0.5 INH SOL 3 ML VIAL.NEB. NEB PRN (20:04)
--- NOTE | 2017-12-06 05:16 | PN ---
Physical Exam: SUBJECTIVE: Patient seen and examined. Pt. could not sleep well b/c she was SOB , c/o irritation of nasal cannula to nares. Pt. expressed displeasure with missing lunch and dinner yesterday. Pt. was dyspneic on conversation. OBJECTIVE: Vital Signs Period Temp Pulse Resp BP Sys/Santoro Pulse Ox Last 24 Hr 98 F-98.7 F 58-62 20-20 107-116/54-73 96-96 GENERAL: The patient is awake, alert, and fully oriented, in mild distress waiting for breakfast EYES: Pt.'s eyes were able to open wider today, less edema around eyes. LUNGS: Decreased breath sounds in left lower lobe, all other areas were CTA, no wheezes, no crackles, no accessory muscle use. HEART: Regular rate and rhythm, S1, S2 without murmur, rub or gallop. EXTREMITIES: no calf tenderness, warm, well-perfused, 1+ edema. PSYCH: Normal mood, normal affect. Laboratory Results - last 24 hr 12/05/17 12/05/17 12/05/17 05:30 05:30 06:25 WBC 4.2 RBC 3.57 L Hgb 10.1 L Hct 30.8 L MCV 86.3 MCH 28.2 MCHC 32.7 RDW 16.9 H Plt Count 137 MPV 8.4 Absolute Neuts (auto) 2.4 Neutrophils % 57.2 Lymphocytes % 22.8 Monocytes % 19.4 H Eosinophils % 0.0 Basophils % 0.6 Nucleated RBC % 0 Sodium 142 Potassium 3.3 L Chloride 99 Carbon Dioxide 34 H Anion Gap 9 BUN 35 H Creatinine 1.3 H Creat Clearance w eGFR 41.24 POC Glucometer 116 Random Glucose 111 H Calcium 8.4 L Phosphorus 3.6 Magnesium 1.9 Total Bilirubin 2.1 H AST 36 ALT 19 Alkaline Phosphatase 103 Total Protein 6.9 Albumin 2.7 L TSH 0.96 12/05/17 12/05/17 12/05/17 11:29 16:42 23:50 WBC RBC Hgb Hct MCV MCH MCHC RDW Plt Count MPV Absolute Neuts (auto) Neutrophils % Lymphocytes % Monocytes % Eosinophils % Basophils % Nucleated RBC % Sodium Potassium Chloride Carbon Dioxide Anion Gap BUN Creatinine Creat Clearance w eGFR POC Glucometer 125 80 71 Random Glucose Calcium Phosphorus Magnesium Total Bilirubin AST ALT Alkaline Phosphatase Total Protein Albumin TSH 12/06/17 03:38 WBC RBC Hgb Hct MCV MCH MCHC RDW Plt Count MPV Absolute Neuts (auto) Neutrophils % Lymphocytes % Monocytes % Eosinophils % Basophils % Nucleated RBC % Sodium Potassium Chloride Carbon Dioxide Anion Gap BUN Creatinine Creat Clearance w eGFR POC Glucometer 94 Random Glucose Calcium Phosphorus Magnesium Total Bilirubin AST ALT Alkaline Phosphatase Total Protein Albumin TSH Active Medications Current Medications Acetaminophen (Tylenol -) 325 mg PO Q6H PRN PRN Reason: PAIN LEVEL 6-10 Last Admin: 12/03/17 10:33 Dose: 325 mg Albuterol/Ipratropium (Duoneb -) 1 amp NEB Q6H PRN PRN Reason: SHORTNESS OF BREATH Last Admin: 12/05/17 20:04 Dose: 1 amp Clopidogrel Bisulfate (Plavix -) 75 mg PO DAILY [facility] Last Admin: 12/06/17 09:26 Dose: 75 mg Furosemide (Lasix Injection -) 80 mg IVPB BID@0600,1400 [facility] Last Admin: 12/06/17 13:56 Dose: 80 mg Heparin Sodium (Porcine) (Heparin -) 5,000 unit SQ TID [facility] Last Admin: 12/06/17 13:45 Dose: 5,000 unit Levothyroxine Sodium (Synthroid -) 75 mcg PO DAILY@0700 [facility] Last Admin: 12/06/17 06:33 Dose: 75 mcg Metoprolol Succinate (Toprol Xl -) 100 mg PO DAILY [facility] Last Admin: 12/06/17 09:27 Dose: 100 mg Nicotine (Nicoderm Patch -) 7 mg TD DAILY [facility] Last Admin: 12/06/17 09:25 Dose: 7 mg Sacubitril/Valsartan (Entresto 49 Mg-51 Mg Tablet) 1 tab PO BID [facility] Last Admin: 12/06/17 09:26 Dose: 1 tab Spironolactone (Aldactone -) 50 mg PO DAILY [facility] Last Admin: 12/06/17 09:27 Dose: 50 mg ASSESSMENT/PLAN: 62 y/o female with PMH systolic CHF with EF 25% s/p ICD pacemaker, HTN, HLD, DM , COPD, hypothyroidism, CAD s/p CABG x2 and [place] 2003, presents with complaint of shortness of breath. CHF exacerbation -Last echo EF 25%, severely dilated and hypertrophic LV -ECG showed 1st degree heart block with PVC -Elevated troponins 0.06 -Troponins x 2 negative -Adjusted Lasix 80mg BID PO(12/02/17) -follow intake & outputs, daily weights: Weight on admission: 100.335kgs; Weight 12/03/17(101.423 kg), Weight Today(101.661 kg) -patient amenable to continued cardiac monitoring -Readjusted Lasix to 80mg BID IVP and Restarted Aldactone 50mg PO. -Pt. was unable to tolerate US Doppler to r/o Superior Vena Cava Syndrome, however Pt. is negative for SVC Syndome d/t patent subclavian and internal jugular vessels. Dyspnea -Continue oxygen 5L nasal canula -Duonebs Q6 hours -Pt. denies orthopnea today(12/03/17) -CTScan-extensive edematous changes throughout the subcutaneous tissues of the chest, upper abdomen and both breasts. Moderate pleural effusion of the right breast. Hypokalemia -Likely secondary to diuretic -Oral KCl -IV KCl P2xbobc X3 doses (11/27/17) -given 40 meq K-Dur @ 15:05 -resolved K+: 4.5 (11/29/17) -K+ 3.4 (12/06/17)---> given 40mek K-Dur Abdominal Pain -AST 42, Bili 2.9 on admission. -Abdominal U/S: R. Renal cyst 2.5cm, coarse echotexture suggestive of fatty infiltration or hepatocellular disease -reduced abdominal pain from admission, intermittent in nature. Hypoglycemia -given D50w 25gm TWICE, last dose 10/29/17 AM -monitoring blood glucose q6h -glucose has been above 50 during the day, currently at 83 (11/29/17). -Glucose 60 (11/30/17) -if glucose below 50, repeat D50w 25gm dose. -Asymptomatic: resolved HTN - c/w Metoprolol - c/w aldactone Hypothyroidism -Continue Synthroid DM -Insulin sliding scale -Fingerstick blood glucose monitoring Smoking -Nicotine patch -Pt. is amenable to starting the nicotine patch as of 12/03/17 Hypoalbuminemia -Independent Trader consult -likely 2/2 systolic CHF -elevated LFTs -appreciate abd. US FEN - No IV fluids at this time - Oral KCl and IVKCl Q4 hours X 3 doses (11/27/17)---> K+: 3.8 on rpt. AM labs ()-->Given an additional 40meq at 15:05 (11/28/17) - K+ 3.4 (12/06/17)---> given 40mek K-Dur - Diabetic/ Low sodium diet - Magnesium: 1.5 (11/27/17)--> Given Mg Sulfate, M.1 on rpt labs (11/28/17) - Magnesium 1.7 (12/06/17)---> Given Mg Sulfate - Fluid restriction to 1L - Strict Is and Os - Appreciated Nephrology Consult. - Placed Lam(12/04/17)- Good urine output 650ml (12/05/17) Dispo - patient lives at home by herself - no longer has VNS or home health aide - Pt. amenable to going to [facility] for rehabilitation or any other SNF EXCEPT [facility] - Appreciated Palliative Care note (12/04/17). We will f/u with DNR/DNI status at a later time. - PT evaluated patient to walk 10 ft x 1 with a minimum of 2 for assistance and a walker. Visit type - Emergency Visit Emergency Visit: No - New Patient This patient is new to me today: No - Critical Care Critical Care patient: No - Discharge Referral Referred to [facility] Med P.C.: No
[2017-12-06] MEDS: FUROSEMIDE 100 MG/10 ML INJECTABLE VIAL IVPB SCH ×2 (05:35→13:56)
[2017-12-06] MEDS: HEPARIN NA (PORCINE) 5,000 UNITS/ML 1ML VIAL SQ SCH ×3 (05:36→21:36)
[2017-12-06] MEDS: LEVOTHYROXINE NA 75 MCG TABLET (FP) PO SCH (06:33)
[2017-12-06 06:55] LABS: CHLORIDE 99 mmol/L (98-107); POTASSIUM 3.4 mmol/L (3.5-5.1); SODIUM 143 mmol/L (136-145)
[2017-12-06] MEDS ORDERED: POTASSIUM CHLORIDE TABS 20 MEQ TABLET.ER (FP) PO ONE (06:59)
[2017-12-06 07:02] LABS: ALBUMIN 2.7 g/dl (3.4-5.0); ALK PHOS 88 U/L (45-117); ANION GAP 5 (8-16); BILIRUBIN,TOTAL 2.2 mg/dL (0.2-1.0); BLOOD UREA NITROGEN 31 mg/dL (7-18); CALCIUM 8.9 mg/dL (8.5-10.1); CO2 39 mmol/L (21-32); CREATININE 1.1 mg/dL (0.55-1.02); GLUCOSE,RANDOM 95 mg/dL (74-106); MAGNESIUM 1.7 mg/dL (1.8-2.4); PHOSPHOROUS 3.2 mg/dL (2.5-4.9); SGOT/AST 32 U/L (15-37); SGPT/ALT 19 U/L (12-78); TOT PROT 6.9 g/dl (6.4-8.2)
--- NOTE | 2017-12-06 08:19 | PN ---
Teaching Attending Note Name of Resident: Onesimo Simmons ATTENDING PHYSICIAN STATEMENT I saw and evaluated the patient. I reviewed the resident's note and discussed the case with the resident. I agree with the resident's findings and plan as documented with exceptions below. SUBJECTIVE: Patient seen and examined. More awake and interactive today, breathing better, denies any pain currently OBJECTIVE: Vital Signs Period Temp Pulse Resp BP Sys/Santoro Pulse Ox Last 24 Hr 97.9 F-98.5 F 58-61 20-20 109-135/54-92 96-96 Intake & Output 12/03/17 12/04/17 12/05/17 12/06/17 23:59 23:59 23:59 23:59 Intake Total 520 616 400 100 Output Total 200 3000 400 Balance 520 416 2600 -300 Weight 223 lb 9.6 oz 224 lb 2 oz 217 lb General: lying in bed in no acute distress HEENT: facial and periorbital edema markedly improved Chest: decreased breath sounds at bases, few scattered rales Abdomen: soft, obese, NT Extremities: 2+ pedal edema, improved Home Medications Medication Instructions Recorded Clopidogrel Bisulfate [Plavix -] 75 mg PO DAILY #30 tablet 08/02/17 Levothyroxine [Synthroid -] 75 mcg PO DAILY@0700 30 Days #30 08/02/17 tablet Sacubitril/Valsartan [Entresto 24 1 tab PO BID #60 tablet 08/14/17 mg-26 mg Tablet] Metoprolol Succinate 100 mg PO DAILY 11/27/17 Spironolactone 25 mg PO DAILY 11/27/17 Furosemide [Lasix] 80 mg PO DAILY 11/28/17 Active Medications Acetaminophen (Tylenol -) 325 mg PO Q6H PRN PRN Reason: PAIN LEVEL 6-10 Last Admin: 12/03/17 10:33 Dose: 325 mg Albuterol/Ipratropium (Duoneb -) 1 amp NEB Q6H PRN PRN Reason: SHORTNESS OF BREATH Last Admin: 12/05/17 20:04 Dose: 1 amp Clopidogrel Bisulfate (Plavix -) 75 mg PO DAILY [facility] Last Admin: 12/05/17 09:24 Dose: 75 mg Furosemide (Lasix Injection -) 80 mg IVPB BID@0600,1400 [facility] Last Admin: 12/06/17 05:35 Dose: 80 mg Heparin Sodium (Porcine) (Heparin -) 5,000 unit SQ TID [facility] Last Admin: 12/06/17 05:36 Dose: 5,000 unit Levothyroxine Sodium (Synthroid -) 75 mcg PO DAILY@0700 [facility] Last Admin: 12/06/17 06:33 Dose: 75 mcg Magnesium Sulfate (Magnesium Sulfate) 2 gm IVPB ONCE ONE Stop: 12/06/17 08:15 Metoprolol Succinate (Toprol Xl -) 100 mg PO DAILY [facility] Last Admin: 12/05/17 09:24 Dose: 100 mg Nicotine (Nicoderm Patch -) 7 mg TD DAILY [facility] Last Admin: 12/05/17 09:24 Dose: 7 mg Sacubitril/Valsartan (Entresto 49 Mg-51 Mg Tablet) 1 tab PO BID [facility] Last Admin: 12/05/17 22:02 Dose: 1 tab Spironolactone (Aldactone -) 50 mg PO DAILY [facility] Last Admin: 12/05/17 12:17 Dose: 50 mg Laboratory Results - last 24 hr 12/05/17 12/05/17 12/05/17 05:30 11:29 16:42 Sodium 142 Potassium 3.3 L Chloride 99 Carbon Dioxide 34 H Anion Gap 9 BUN 35 H Creatinine 1.3 H Creat Clearance w eGFR 41.24 POC Glucometer 125 80 Random Glucose 111 H Calcium 8.4 L Phosphorus 3.6 Magnesium 1.9 Total Bilirubin 2.1 H AST 36 ALT 19 Alkaline Phosphatase 103 Total Protein 6.9 Albumin 2.7 L TSH 0.96 12/05/17 12/06/17 12/06/17 23:50 03:38 05:30 Sodium 143 Potassium 3.4 L Chloride 99 Carbon Dioxide 39 H Anion Gap 5 L BUN 31 H Creatinine 1.1 H Creat Clearance w eGFR 50.01 POC Glucometer 71 94 Random Glucose 95 Calcium 8.9 Phosphorus 3.2 Magnesium 1.7 L Total Bilirubin 2.2 H AST 32 ALT 19 Alkaline Phosphatase 88 D Total Protein 6.9 Albumin 2.7 L TSH 12/06/17 06:35 Sodium Potassium Chloride Carbon Dioxide Anion Gap BUN Creatinine Creat Clearance w eGFR POC Glucometer 88 Random Glucose Calcium Phosphorus Magnesium Total Bilirubin AST ALT Alkaline Phosphatase Total Protein Albumin TSH ASSESSMENT AND PLAN: 62 year old woman with a history of HTN, HLD, DM, CAD status post [place] 2003, DVT, right hip replacement, CABG in 2003 with stents, systolic CHF s/p ICD pacemaker , COPD, current smoker, and hypothyroidism who presents to the ER via EMS for shortness of breath and found to be in acute systolic CHF -Acute on chronic systolic HF exacerbation with anasarca -LIANNA, likely from CHF+/ medication induced -Facial puffiness, likely from CHF as improved with diuresis -Hypoglycemia -Hypernatremia, ?lab error, resolved -Acute transaminitis, suspect passive hepatic congestion from severely low EF, improved -Mild troponin elevation, suspect demand induced from above -Hypokalemia -Hypomagnesemia -HTN -HLD Plan: Continue to improve, diuresing well, renal function improved. Continue lasix 60 mg IV BID and spironolactone 50 mg daily Renal/cardiology input appreciated. CT chest noted. Continue entresto. Strict I/Os (Lam placed) and daily weights. BGM AC and hs. LFts normalized. Abdominal US with fatty liver vs hepatocellular disease. Replete lytes prn. Continue statin DVTPPX with heparin Dispo likely [facility] vs cardiac rehab when clinically improved. Palliative care input to address overall goals of care as concerns for progressive deterioration and non compliance. Plan discussed with patient and all questions answered.
[2017-12-06] MEDS ORDERED: MAGNESIUM 2GM/50ML STERILE WATER IVPB IVPB ONE (09:00)
[2017-12-06] MEDS ORDERED: PT OWN MED DRAWER 7, Y5N ONE (09:23)
[2017-12-06] MEDS: NICOTINE 7 MG/24 HOURS TOPICAL PATCH TD SCH (09:25)
[2017-12-06] MEDS: SACUBITRIL/VALSARTAN 49 MG-51 MG TABLET PO SCH ×2 (09:26→21:36)
[2017-12-06] MEDS: CLOPIDOGREL BISULFATE 75 MG TABLET (FP) PO SCH (09:26)
[2017-12-06] MEDS: SPIRONOLACTONE 25 MG TABLET (FP) PO SCH (09:27)
--- NOTE | 2017-12-06 10:42 | PN ---
Progress Note, Physician History of Present Illness: no acute events overnight. patients breathing seems to be improving. she is still experiencing some belly pain however, denies any CP/N/V or trouble urinating. - Current Medication List Current Medications: Active Medications Acetaminophen (Tylenol -) 325 mg PO Q6H PRN PRN Reason: PAIN LEVEL 6-10 Last Admin: 12/03/17 10:33 Dose: 325 mg Albuterol/Ipratropium (Duoneb -) 1 amp NEB Q6H PRN PRN Reason: SHORTNESS OF BREATH Last Admin: 12/05/17 20:04 Dose: 1 amp Clopidogrel Bisulfate (Plavix -) 75 mg PO DAILY [facility] Last Admin: 12/06/17 09:26 Dose: 75 mg Furosemide (Lasix Injection -) 80 mg IVPB BID@0600,1400 [facility] Last Admin: 12/06/17 05:35 Dose: 80 mg Heparin Sodium (Porcine) (Heparin -) 5,000 unit SQ TID [facility] Last Admin: 12/06/17 05:36 Dose: 5,000 unit Levothyroxine Sodium (Synthroid -) 75 mcg PO DAILY@0700 [facility] Last Admin: 12/06/17 06:33 Dose: 75 mcg Metoprolol Succinate (Toprol Xl -) 100 mg PO DAILY [facility] Last Admin: 12/06/17 09:27 Dose: 100 mg Nicotine (Nicoderm Patch -) 7 mg TD DAILY [facility] Last Admin: 12/06/17 09:25 Dose: 7 mg Sacubitril/Valsartan (Entresto 49 Mg-51 Mg Tablet) 1 tab PO BID [facility] Last Admin: 12/06/17 09:26 Dose: 1 tab Spironolactone (Aldactone -) 50 mg PO DAILY [facility] Last Admin: 12/06/17 09:27 Dose: 50 mg - Objective Vital Signs: Vital Signs Temperature 98.6 F 12/06/17 10:00 Pulse Rate 60 12/06/17 10:00 Respiratory Rate 18 12/06/17 10:00 Blood Pressure 118/59 12/06/17 10:00 O2 Sat by Pulse Oximetry (%) 98 12/06/17 10:00 Constitutional: Yes: No Distress Eyes: Yes: Other (slight eyelid edema but improving from previous exam) Cardiovascular: Yes: Regular Rate and Rhythm, S1, S2 Respiratory: Yes: CTA Bilaterally Gastrointestinal: Yes: Normal Bowel Sounds, Soft, Distention Genitourinary: Yes: Lam Present Edema: Yes (LE edema ) Edema: LLE: 1+, RLE: 1+ Labs: CBC, BMP 12/05/17 05:30 12/06/17 05:30 Problem List - Problems (1) LIANNA (acute kidney injury) Code(s): N17.9 - ACUTE KIDNEY FAILURE, UNSPECIFIED (2) Acute on chronic systolic and diastolic heart failure, NYHA class 3 Code(s): I50.43 - ACUTE ON CHRONIC COMBINED SYSTOLIC AND DIASTOLIC HRT FAIL (3) Chronic abdominal pain Code(s): R10.9 - UNSPECIFIED ABDOMINAL PAIN; G89.29 - OTHER CHRONIC PAIN Assessment/Plan patient is clinically improving but still volume overloaded: her renal function is improving: Cr went from 1.3 to 1.1 -continue with lasix 80 IV BID and spironolactone 50mg daily -continue monitoring I's and O's and daily weights -trend CMP and fluid status
--- NOTE | 2017-12-06 15:48 | PN ---
Teaching Attending Note Name of Resident: Vivian Germain (Nephrology) ATTENDING PHYSICIAN STATEMENT I saw and evaluated the patient. I reviewed the resident's note and discussed the case with the resident. I agree with the resident's findings and plan as documented. Nephrology Pt seen and examined at bedside. She is more awake and alert than yesterday. Current Medications Generic Name Dose Route Start Last Admin Trade Name Freq PRN Reason Stop Dose Admin Acetaminophen 325 mg 12/01/17 21:01 12/03/17 10:33 Tylenol - PO 325 mg Q6H PRN Administration PAIN LEVEL 6-10 Albuterol/Ipratropium 1 amp 11/30/17 09:37 12/05/17 20:04 Duoneb - NEB 1 amp Q6H PRN Administration SHORTNESS OF BREATH Clopidogrel Bisulfate 75 mg 11/27/17 10:00 12/06/17 09:26 Plavix - PO 75 mg DAILY [facility] Administration Furosemide 80 mg 12/05/17 06:00 12/06/17 13:56 Lasix Injection - IVPB 80 mg BID@0600,1400 [facility] Administration Heparin Sodium (Porcine) 5,000 unit 11/27/17 06:00 12/06/17 13:45 Heparin - SQ 5,000 unit TID [facility] Administration Levothyroxine Sodium 75 mcg 11/27/17 07:00 12/06/17 06:33 Synthroid - PO 75 mcg DAILY@0700 [facility] Administration Metoprolol Succinate 100 mg 11/27/17 10:00 12/06/17 09:27 Toprol Xl - PO 100 mg DAILY [facility] Administration Nicotine 7 mg 11/27/17 10:00 12/06/17 09:25 Nicoderm Patch - TD 7 mg DAILY [facility] Administration Sacubitril/Valsartan 1 tab 12/01/17 22:00 12/06/17 09:26 Entresto 49 Mg-51 Mg Tablet PO 1 tab BID [facility] Administration Spironolactone 50 mg 12/05/17 12:15 12/06/17 09:27 Aldactone - PO 50 mg DAILY [facility] Administration Laboratory Tests 12/06/17 05:30 Sodium 143 Potassium 3.4 L BUN 31 H Creatinine 1.1 H Last Vital Signs Temp Pulse Resp BP Pulse Ox 98 F 62 18 131/60 98 12/06/17 15:00 12/06/17 15:00 12/06/17 15:00 12/06/17 15:00 12/06/17 10:00 cardio s1s2 pulm rhonchi gi soft, obese ext edema neuro awake and alert skin neg rash circ pos pulses Impression 1. LIANNA 2. CHF 3. volume overload 4. HTN 5. HLD 6. DM 7. CAD 8. COPD 9. active smoker Plan - renal function is improving - monitor urine output - cont lasix and spironolactone - replace potassium - repeat labs in am - monitor volume status, pt remains overloaded Dr Lowry
--- NOTE | 2017-12-07 01:47 | PN ---
Progress Note, Physician Chief Complaint: Pt A&Ox3; slightly improved edema (several pound weight loss since yesterday); no chest pain or dysnea. History of Present Illness: The patient is a 62 black F with a PMH of HTN, HLD, DM, CAD status post [place] 2003 , CABG in 2003 with stents, severe systolic CHF s/p ICD pacemaker, COPD current smoker, hypothyroid , anxiety/depression, who presents to the ER via EMS for shortness of breath. The patient is accompanied by her grandson who provides the history. The grandson states that the patient has had 4 months of worsening swelling and shortness of breath. The grandson states that he "finally convinced " his grandmother to come to the ER. The grandmother states that she does not feel well but does not provide any other history. - Current Medication List Current Medications: Active Medications Acetaminophen (Tylenol -) 325 mg PO Q6H PRN PRN Reason: PAIN LEVEL 6-10 Last Admin: 12/03/17 10:33 Dose: 325 mg Albuterol/Ipratropium (Duoneb -) 1 amp NEB Q6H PRN PRN Reason: SHORTNESS OF BREATH Last Admin: 12/05/17 20:04 Dose: 1 amp Clopidogrel Bisulfate (Plavix -) 75 mg PO DAILY [facility] Last Admin: 12/06/17 09:26 Dose: 75 mg Furosemide (Lasix Injection -) 80 mg IVPB BID@0600,1400 [facility] Last Admin: 12/06/17 13:56 Dose: 80 mg Heparin Sodium (Porcine) (Heparin -) 5,000 unit SQ TID [facility] Last Admin: 12/06/17 21:36 Dose: 5,000 unit Levothyroxine Sodium (Synthroid -) 75 mcg PO DAILY@0700 [facility] Last Admin: 12/06/17 06:33 Dose: 75 mcg Metoprolol Succinate (Toprol Xl -) 100 mg PO DAILY [facility] Last Admin: 12/06/17 09:27 Dose: 100 mg Nicotine (Nicoderm Patch -) 7 mg TD DAILY [facility] Last Admin: 12/06/17 09:25 Dose: 7 mg Sacubitril/Valsartan (Entresto 49 Mg-51 Mg Tablet) 1 tab PO BID [facility] Last Admin: 12/06/17 21:36 Dose: 1 tab Spironolactone (Aldactone -) 50 mg PO DAILY [facility] Last Admin: 12/06/17 09:27 Dose: 50 mg - Objective Vital Signs: Vital Signs Temperature 98.4 F 12/06/17 21:42 Pulse Rate 60 12/06/17 21:42 Respiratory Rate 20 12/06/17 21:42 Blood Pressure 120/53 12/06/17 21:42 O2 Sat by Pulse Oximetry (%) 94 L 12/06/17 21:00 Constitutional: Yes: Calm Eyes: Yes: WNL HENT: Yes: WNL Neck: Yes: WNL Cardiovascular: Yes: S1, S2 (split) Respiratory: Yes: Diminished Gastrointestinal: Yes: Ascites, Distention ...Rectal Exam: Yes: Deferred Genitourinary: No: Anuria Breast(s): Yes: Other (edematous) Musculoskeletal: Yes: Joint Stiffness, Joint Swelling, Muscle Weakness Extremities: Yes: Cool Edema: Yes Edema: LLE: 1+, RLE: 1+ Peripheral Pulses WNL: No Peripheral Pulses: Left Doralis Pedis: 1+, Right Dorsalis Pedis: 1+ Neurological: Yes: Alert, Oriented, Weakness Psychiatric: Yes: Alert, Oriented Labs: CBC, BMP 12/05/17 05:30 12/06/17 05:30 Abnormal Lab Results 12/06/17 05:30 Potassium 3.4 L Carbon Dioxide 39 H Anion Gap 5 L BUN 31 H Creatinine 1.1 H Magnesium 1.7 L Total Bilirubin 2.2 H Albumin 2.7 L - ....Imaging Cat Scan: Image Reviewed (right pleural effusion; extensive body edema) Problem List - Problems (1) Elevated liver function tests Assessment/Plan: mildly elevated since admission; f/u serially with CHF treatment. Hx fatty liver. Code(s): R94.5 - ABNORMAL RESULTS OF LIVER FUNCTION STUDIES (2) AICD (automatic cardioverter/defibrillator) present Code(s): Z95.810 - PRESENCE OF AUTOMATIC (IMPLANTABLE) CARDIAC DEFIBRILLATOR (3) Acute on chronic systolic and diastolic heart failure, NYHA class 3 Assessment/Plan: Pt continues with generalized edema, though improving, and weight decreased substantially overnight for the first time since admission. BP stable. CT chest: right moderate pleural effusion As discussed with car driver, spironolactone was restarted with furosemide ( restarted on IVP), (spironolactone should be continued permanently, given severe systolic LV dysfunction). Continue metoprolol ER and Entresto. Keep Mg 2-2.4, K 4-4.5, and PO4 2.5-3.5. Is and Os; daily weight. BUN/Cr, electrolytes. Code(s): I50.43 - ACUTE ON CHRONIC COMBINED SYSTOLIC AND DIASTOLIC HRT FAIL (4) Cigarette nicotine dependence Assessment/Plan: Encourage use of nicotine patch. Code(s): F17.210 - NICOTINE DEPENDENCE, CIGARETTES, UNCOMPLICATED (5) Coronary artery disease Assessment/Plan: HX coronary stent; hx [place]. Code(s): I25.10 - ATHSCL HEART DISEASE OF [place] CORONARY ARTERY W/O ANG PCTRS (6) Diabetes Code(s): E11.9 - TYPE 2 DIABETES MELLITUS WITHOUT COMPLICATIONS Qualifiers: Diabetes mellitus type: type 2 Diabetes mellitus long distance operator insulin use: with long distance operator use Diabetes mellitus complication status: with unspecified complications Qualified Code(s): E11.8 - Type 2 diabetes mellitus with unspecified complications (7) Fatty liver Code(s): K76.0 - FATTY (CHANGE OF) LIVER, NOT ELSEWHERE CLASSIFIED (8) Hyperlipidemia Code(s): E78.5 - HYPERLIPIDEMIA, UNSPECIFIED (9) Hypertension Code(s): I10 - ESSENTIAL (PRIMARY) HYPERTENSION (10) Hypothyroidism Code(s): E03.9 - HYPOTHYROIDISM, UNSPECIFIED (11) Peripheral neuropathy Code(s): G62.9 - POLYNEUROPATHY, UNSPECIFIED Qualifiers: Peripheral neuropathy type: polyneuropathy, unspecified Qualified Code(s): G62.9 - Polyneuropathy, unspecified (12) Sleep apnea Code(s): G47.30 - SLEEP APNEA, UNSPECIFIED (13) Status post THR (total hip replacement) Code(s): Z96.649 - PRESENCE OF UNSPECIFIED ARTIFICIAL HIP JOINT (14) Hypokalemia Code(s): E87.6 - HYPOKALEMIA (15) Chronic abdominal pain Code(s): R10.9 - UNSPECIFIED ABDOMINAL PAIN; G89.29 - OTHER CHRONIC PAIN (16) Facial swelling Code(s): R22.0 - LOCALIZED SWELLING, MASS AND LUMP, HEAD
[2017-12-07] MEDS: FUROSEMIDE 100 MG/10 ML INJECTABLE VIAL IVPB SCH ×2 (06:02→14:41)
[2017-12-07] MEDS: HEPARIN NA (PORCINE) 5,000 UNITS/ML 1ML VIAL SQ SCH ×3 (06:05→22:15)
[2017-12-07] MEDS: LEVOTHYROXINE NA 75 MCG TABLET (FP) PO SCH (06:09)
[2017-12-07 08:44] LABS: BASO % 0.8 % (0-2.0); HEMATOCRIT 32.9 % (32.4-45.2); HEMOGLOBIN 10.6 GM/dL (10.7-15.3); LYMPH % 26.3 % (8-40); MCHC 32.3 g/dl (32.0-36.0); MEAN CELL VOLUME 86.7 fl (80-96); MEAN PLT VOLUME 8.9 fl (7.5-11.1); MONO % 20.6 % (3.8-10.2); NEUT % 52.3 % (42.8-82.8); PLATELET COUNT 152 K/MM3 (134-434); RDW 16.7 % (11.6-15.6); WHITE BLOOD COUNT 4.5 K/mm3 (4.0-10.0)
[2017-12-07 08:47] LABS: ALBUMIN 3.1 g/dl (3.4-5.0); ANION GAP 3 (8-16); BLOOD UREA NITROGEN 28 mg/dL (7-18); CALCIUM 9.4 mg/dL (8.5-10.1); CHLORIDE 97 mmol/L (98-107); CO2 41 mmol/L (21-32); CREATININE 1.1 mg/dL (0.55-1.02); GLUCOSE,RANDOM 69 mg/dL (74-106); MAGNESIUM 1.9 mg/dL (1.8-2.4); POTASSIUM 3.7 mmol/L (3.5-5.1); SGOT/AST 35 U/L (15-37); SGPT/ALT 21 U/L (12-78); SODIUM 141 mmol/L (136-145)
[2017-12-07 08:48] LABS: ALK PHOS 92 U/L (45-117); BILIRUBIN,TOTAL 2.8 mg/dL (0.2-1.0); TOT PROT 7.8 g/dl (6.4-8.2)
[2017-12-07] MEDS: SPIRONOLACTONE 25 MG TABLET (FP) PO SCH (10:26)
[2017-12-07] MEDS: CLOPIDOGREL BISULFATE 75 MG TABLET (FP) PO SCH (10:26)
[2017-12-07] MEDS: SACUBITRIL/VALSARTAN 49 MG-51 MG TABLET PO SCH ×2 (10:27→22:32)
[2017-12-07] MEDS: NICOTINE 7 MG/24 HOURS TOPICAL PATCH TD SCH (10:27)
[2017-12-07 11:50] LABS: ANISOCYTOSIS 1+; MACROCYTOSIS 0; PLATELET ESTIMATE DECREASED
--- NOTE | 2017-12-07 12:52 | PN ---
Progress Note, Physician History of Present Illness: The patient is a 62 yr old black F with a PMH of HTN, HLD, DM, CAD status post [place] 2003, CABG in 2003 with stents, severe systolic CHF s/p ICD, COPD current smoker, hypothyroid who presents to the ER via EMS for shortness of breath. The patient is accompanied by her grandson who provides the history. The grandson states that the patient has had 4 months of worsening swelling and shortness of breath. The grandson states that he "finally convinced" his grandmother to come to the ER. The grandmother states that she does not feel well but does not provide any other history. Pt had self-reduced furosemide at home from 80 mg bid to 20 mg bid for the past ?few weeks. - Current Medication List Current Medications: Active Medications Acetaminophen (Tylenol -) 325 mg PO Q6H PRN PRN Reason: PAIN LEVEL 6-10 Last Admin: 12/03/17 10:33 Dose: 325 mg Albuterol/Ipratropium (Duoneb -) 1 amp NEB Q6H PRN PRN Reason: SHORTNESS OF BREATH Last Admin: 12/05/17 20:04 Dose: 1 amp Clopidogrel Bisulfate (Plavix -) 75 mg PO DAILY [facility] Last Admin: 12/07/17 10:26 Dose: 75 mg Furosemide (Lasix Injection -) 80 mg IVPB BID@0600,1400 [facility] Last Admin: 12/07/17 06:02 Dose: 80 mg Heparin Sodium (Porcine) (Heparin -) 5,000 unit SQ TID [facility] Last Admin: 12/07/17 06:05 Dose: 5,000 unit Levothyroxine Sodium (Synthroid -) 75 mcg PO DAILY@0700 [facility] Last Admin: 12/07/17 06:09 Dose: 75 mcg Metoprolol Succinate (Toprol Xl -) 100 mg PO DAILY [facility] Last Admin: 12/07/17 10:26 Dose: 100 mg Nicotine (Nicoderm Patch -) 7 mg TD DAILY [facility] Last Admin: 12/07/17 10:27 Dose: 7 mg Sacubitril/Valsartan (Entresto 49 Mg-51 Mg Tablet) 1 tab PO BID [facility] Last Admin: 12/07/17 10:27 Dose: 1 tab Spironolactone (Aldactone -) 50 mg PO DAILY [facility] Last Admin: 12/07/17 10:26 Dose: 50 mg - Objective Vital Signs: Vital Signs Temperature 98.0 F 12/07/17 06:26 Pulse Rate 63 12/07/17 06:26 Respiratory Rate 18 12/07/17 09:00 Blood Pressure 100/51 12/07/17 06:26 O2 Sat by Pulse Oximetry (%) 100 12/07/17 09:00 Eyes: Yes: WNL, Conjunctiva Clear, EOM Intact HENT: Yes: WNL, Atraumatic, Normocephalic Neck: Yes: WNL, Supple, Trachea Midline Cardiovascular: Yes: WNL, Regular Rate and Rhythm Respiratory: Yes: WNL, Regular, CTA Bilaterally Gastrointestinal: Yes: WNL, Normal Bowel Sounds Genitourinary: Yes: WNL Musculoskeletal: Yes: WNL Extremities: Yes: WNL Edema: Yes Integumentary: Yes: WNL Neurological: Yes: WNL, Alert, Oriented ...Motor Strength: WNL Psychiatric: Yes: WNL Labs: CBC, BMP 12/07/17 08:00 12/07/17 08:00 Assessment/Plan - Problems (1) Elevated liver function tests Assessment/Plan: mildly elevated since admission; f/u serially with CHF treatment. Hx fatty liver. Code(s): R94.5 - ABNORMAL RESULTS OF LIVER FUNCTION STUDIES (2) AICD (automatic cardioverter/defibrillator) present Code(s): Z95.810 - PRESENCE OF AUTOMATIC (IMPLANTABLE) CARDIAC DEFIBRILLATOR (3) Acute on chronic systolic and diastolic heart failure, NYHA class 3 Assessment/Plan: Pt continues with generalized edema, though improving, and weight decreased substantially overnight for the first time since admission. BP stable. CT chest: right moderate pleural effusion As discussed with logistics service representative, spironolactone was restarted with furosemide ( restarted on IVP), (spironolactone should be continued permanently, given severe systolic LV dysfunction). Continue metoprolol ER and Entresto. Keep Mg 2-2.4, K 4-4.5, and PO4 2.5-3.5. Is and Os; daily weight. BUN/Cr, electrolytes. Code(s): I50.43 - ACUTE ON CHRONIC COMBINED SYSTOLIC AND DIASTOLIC HRT FAIL (4) Cigarette nicotine dependence Assessment/Plan: Encourage use of nicotine patch. Code(s): F17.210 - NICOTINE DEPENDENCE, CIGARETTES, UNCOMPLICATED (5) Coronary artery disease Assessment/Plan: HX coronary stent; hx SC. Code(s): I25.10 - ATHSCL HEART DISEASE OF [place] CORONARY ARTERY W/O ANG PCTRS (6) Diabetes Code(s): E11.9 - TYPE 2 DIABETES MELLITUS WITHOUT COMPLICATIONS Qualifiers: Diabetes mellitus type: type 2 Diabetes mellitus terminal system operator insulin use: with terminal system operator use Diabetes mellitus complication status: with unspecified complications Qualified Code(s): E11.8 - Type 2 diabetes mellitus with unspecified complications (7) Fatty liver Code(s): K76.0 - FATTY (CHANGE OF) LIVER, NOT ELSEWHERE CLASSIFIED (8) Hyperlipidemia Code(s): E78.5 - HYPERLIPIDEMIA, UNSPECIFIED (9) Hypertension Code(s): I10 - ESSENTIAL (PRIMARY) HYPERTENSION (10) Hypothyroidism Code(s): E03.9 - HYPOTHYROIDISM, UNSPECIFIED (11) Peripheral neuropathy Code(s): G62.9 - POLYNEUROPATHY, UNSPECIFIED Qualifiers: Peripheral neuropathy type: polyneuropathy, unspecified Qualified Code(s): G62.9 - Polyneuropathy, unspecified (12) Sleep apnea Code(s): G47.30 - SLEEP APNEA, UNSPECIFIED (13) Status post THR (total hip replacement) Code(s): Z96.649 - PRESENCE OF UNSPECIFIED ARTIFICIAL HIP JOINT (14) Hypokalemia Code(s): E87.6 - HYPOKALEMIA (15) Chronic abdominal pain Code(s): R10.9 - UNSPECIFIED ABDOMINAL PAIN; G89.29 - OTHER CHRONIC PAIN (16) Facial swelling Code(s): R22.0 - LOCALIZED SWELLING, MASS AND LUMP, HEAD
[2017-12-07] MEDS ORDERED: POTASSIUM CHLORIDE TABS 20 MEQ TABLET.ER (FP) PO ONE (14:30)
--- NOTE | 2017-12-07 15:03 | PN ---
Progress Note, Physician History of Present Illness: no acute events overnight. patient seemed more cooperative and energetic this am. states she feels her breathing is a little bit improved. she was sitting upright in chair. states she is urinating frequently and is still having some belly pain but denies any CP/N/V and was able to open her eyes fully today. - Current Medication List Current Medications: Active Medications Acetaminophen (Tylenol -) 325 mg PO Q6H PRN PRN Reason: PAIN LEVEL 6-10 Last Admin: 12/03/17 10:33 Dose: 325 mg Albuterol/Ipratropium (Duoneb -) 1 amp NEB Q6H PRN PRN Reason: SHORTNESS OF BREATH Last Admin: 12/05/17 20:04 Dose: 1 amp Clopidogrel Bisulfate (Plavix -) 75 mg PO DAILY [facility] Last Admin: 12/07/17 10:26 Dose: 75 mg Furosemide (Lasix Injection -) 80 mg IVPB BID@0600,1400 [facility] Last Admin: 12/07/17 14:41 Dose: 80 mg Heparin Sodium (Porcine) (Heparin -) 5,000 unit SQ TID [facility] Last Admin: 12/07/17 14:41 Dose: 5,000 unit Levothyroxine Sodium (Synthroid -) 75 mcg PO DAILY@0700 [facility] Last Admin: 12/07/17 06:09 Dose: 75 mcg Metoprolol Succinate (Toprol Xl -) 100 mg PO DAILY [facility] Last Admin: 12/07/17 10:26 Dose: 100 mg Nicotine (Nicoderm Patch -) 7 mg TD DAILY [facility] Last Admin: 12/07/17 10:27 Dose: 7 mg Sacubitril/Valsartan (Entresto 49 Mg-51 Mg Tablet) 1 tab PO BID [facility] Last Admin: 12/07/17 10:27 Dose: 1 tab Spironolactone (Aldactone -) 50 mg PO DAILY [facility] Last Admin: 12/07/17 10:26 Dose: 50 mg - Objective Vital Signs: Vital Signs Temperature 98.9 F 12/07/17 14:17 Pulse Rate 48 L 12/07/17 14:17 Respiratory Rate 20 12/07/17 14:17 Blood Pressure 117/53 12/07/17 14:17 O2 Sat by Pulse Oximetry (%) 100 12/07/17 09:00 Cardiovascular: Yes: Regular Rate and Rhythm, S2 Respiratory: Yes: CTA Bilaterally Gastrointestinal: Yes: Normal Bowel Sounds, Abdomen, Obese, Distention Genitourinary: Yes: Lam Present Musculoskeletal: Yes: Back Pain Edema: Yes Edema: LLE: 2+, RLE: 2+ (but improving ) Labs: CBC, BMP 12/07/17 08:00 12/07/17 08:00 Problem List - Problems (1) LIANNA (acute kidney injury) Code(s): N17.9 - ACUTE KIDNEY FAILURE, UNSPECIFIED (2) Acute on chronic systolic and diastolic heart failure, NYHA class 3 Code(s): I50.43 - ACUTE ON CHRONIC COMBINED SYSTOLIC AND DIASTOLIC HRT FAIL (3) Chronic abdominal pain Code(s): R10.9 - UNSPECIFIED ABDOMINAL PAIN; G89.29 - OTHER CHRONIC PAIN Assessment/Plan patienst breathing and fluid status seems to be improving, but still has edema. -continue to monitor daily weights, I's and O's -repeat labs in AM -lowering lasix dosage to 40 IV daily -monitor electrolytes and Cr
--- NOTE | 2017-12-07 15:31 | PN ---
Teaching Attending Note Name of Resident: Vivian Germain (Nephrology) ATTENDING PHYSICIAN STATEMENT I saw and evaluated the patient. I reviewed the resident's note and discussed the case with the resident. I agree with the resident's findings and plan as documented. SUBJECTIVE: Renal Pt seen and examined at bedside. She is much more awake and alert today. Current Medications Generic Name Dose Route Start Last Admin Trade Name Freq PRN Reason Stop Dose Admin Acetaminophen 325 mg 12/01/17 21:01 12/03/17 10:33 Tylenol - PO 325 mg Q6H PRN Administration PAIN LEVEL 6-10 Albuterol/Ipratropium 1 amp 11/30/17 09:37 12/05/17 20:04 Duoneb - NEB 1 amp Q6H PRN Administration SHORTNESS OF BREATH Clopidogrel Bisulfate 75 mg 11/27/17 10:00 12/07/17 10:26 Plavix - PO 75 mg DAILY [facility] Administration Furosemide 40 mg 12/08/17 10:00 Lasix Injection - IVPUSH DAILY [facility] Heparin Sodium (Porcine) 5,000 unit 11/27/17 06:00 12/07/17 14:41 Heparin - SQ 5,000 unit TID [facility] Administration Levothyroxine Sodium 75 mcg 11/27/17 07:00 12/07/17 06:09 Synthroid - PO 75 mcg DAILY@0700 [facility] Administration Metoprolol Succinate 100 mg 11/27/17 10:00 12/07/17 10:26 Toprol Xl - PO 100 mg DAILY [facility] Administration Nicotine 7 mg 11/27/17 10:00 12/07/17 10:27 Nicoderm Patch - TD 7 mg DAILY [facility] Administration Sacubitril/Valsartan 1 tab 12/01/17 22:00 12/07/17 10:27 Entresto 49 Mg-51 Mg Tablet PO 1 tab BID [facility] Administration Spironolactone 50 mg 12/05/17 12:15 12/07/17 10:26 Aldactone - PO 50 mg DAILY [facility] Administration Laboratory Tests 12/07/17 08:00 Sodium 141 Potassium 3.7 Creatinine 1.1 H cardio s1s2 pulm on nc o2 GI soft obese ext edema neuro lethargic skin neg rash Impression 1. LIANNA 2. CHF 3. volume overload 4. HTN 5. HLD 6. DM 7. CAD 8. COPD 9. active smoker 10. anasarca 11. hypokalemia Plan - decrease lasix to 40 iv daily - cont aldactone - repeat labs madeline - monitor urine output - discussed with medical team - check daily weights, pts weight is improving - keep on tele
--- NOTE | 2017-12-07 17:51 | PN ---
Teaching Attending Note Name of Resident: Onesimo Simmons ATTENDING PHYSICIAN STATEMENT I saw and evaluated the patient. I reviewed the resident's note and discussed the case with the resident. I agree with the resident's findings and plan as documented with exceptions below. SUBJECTIVE: Patient seen and examined. Sleeping, no complaints currently. Denies any new dyspnea or pain. OBJECTIVE: Vital Signs Period Temp Pulse Resp BP Sys/Santoro Pulse Ox Last 24 Hr 97.4 F-98.9 F 48-63 18-20 100-120/43-53 94-100 Intake & Output 12/04/17 12/05/17 12/06/17 12/07/17 23:59 23:59 23:59 23:59 Intake Total 616 400 950 274 Output Total 200 3000 1850 1100 Balance 136 -6152 -900 826 Weight 224 lb 2 oz 217 lb 214 lb 3.2 oz General: sleeping in bed, snoring but arousable HEENT: facial edema improving Chest: limited exam due to patient's lack of co-operation, positive air entry, no rales or wheezing appreciated Abdomen:Soft, nT Extremities: improving pedal edema Active Medications Acetaminophen (Tylenol -) 325 mg PO Q6H PRN PRN Reason: PAIN LEVEL 6-10 Last Admin: 12/03/17 10:33 Dose: 325 mg Albuterol/Ipratropium (Duoneb -) 1 amp NEB Q6H PRN PRN Reason: SHORTNESS OF BREATH Last Admin: 12/05/17 20:04 Dose: 1 amp Clopidogrel Bisulfate (Plavix -) 75 mg PO DAILY [facility] Last Admin: 12/07/17 10:26 Dose: 75 mg Furosemide (Lasix Injection -) 40 mg IVPUSH DAILY [facility] Heparin Sodium (Porcine) (Heparin -) 5,000 unit SQ TID [facility] Last Admin: 12/07/17 14:41 Dose: 5,000 unit Levothyroxine Sodium (Synthroid -) 75 mcg PO DAILY@0700 [facility] Last Admin: 12/07/17 06:09 Dose: 75 mcg Metoprolol Succinate (Toprol Xl -) 100 mg PO DAILY [facility] Last Admin: 12/07/17 10:26 Dose: 100 mg Nicotine (Nicoderm Patch -) 7 mg TD DAILY [facility] Last Admin: 12/07/17 10:27 Dose: 7 mg Sacubitril/Valsartan (Entresto 49 Mg-51 Mg Tablet) 1 tab PO BID [facility] Last Admin: 12/07/17 10:27 Dose: 1 tab Spironolactone (Aldactone -) 50 mg PO DAILY [facility] Last Admin: 12/07/17 10:26 Dose: 50 mg Laboratory Results - last 24 hr 12/06/17 12/07/17 12/07/17 21:44 05:48 08:00 WBC 4.5 RBC 3.80 Hgb 10.6 L Hct 32.9 MCV 86.7 MCH 28.0 MCHC 32.3 RDW 16.7 H Plt Count 152 MPV 8.9 Absolute Neuts (auto) 2.4 Neutrophils % 52.3 Neutrophils % (Manual) 59.6 Band Neutrophils % 0.0 Lymphocytes % 26.3 Lymphocytes % (Manual) 25.3 Monocytes % 20.6 H Monocytes % (Manual) 13 H Eosinophils % 0.0 Eosinophils % (Manual) 0.0 Basophils % 0.8 Basophils % (Manual) 2.0 Myelocytes % (Man) 0 Promyelocytes % (Man) 0 Blast Cells % (Manual) 0 Nucleated RBC % 0 Metamyelocytes 0 Hypochromia 0 Platelet Estimate Decreased Polychromasia 1+ Poikilocytosis 0 Anisocytosis 1+ Microcytosis 1+ Macrocytosis 0 Sodium Potassium Chloride Carbon Dioxide Anion Gap BUN Creatinine Creat Clearance w eGFR POC Glucometer 98 73 Random Glucose Calcium Phosphorus Magnesium Total Bilirubin AST ALT Alkaline Phosphatase Total Protein Albumin 12/07/17 12/07/17 12/07/17 08:00 11:25 16:38 WBC RBC Hgb Hct MCV MCH MCHC RDW Plt Count MPV Absolute Neuts (auto) Neutrophils % Neutrophils % (Manual) Band Neutrophils % Lymphocytes % Lymphocytes % (Manual) Monocytes % Monocytes % (Manual) Eosinophils % Eosinophils % (Manual) Basophils % Basophils % (Manual) Myelocytes % (Man) Promyelocytes % (Man) Blast Cells % (Manual) Nucleated RBC % Metamyelocytes Hypochromia Platelet Estimate Polychromasia Poikilocytosis Anisocytosis Microcytosis Macrocytosis Sodium 141 Potassium 3.7 Chloride 97 L Carbon Dioxide 41 H Anion Gap 3 L BUN 28 H Creatinine 1.1 H Creat Clearance w eGFR 50.01 POC Glucometer 114 98 Random Glucose 69 L Calcium 9.4 Phosphorus 3.0 Magnesium 1.9 Total Bilirubin 2.8 H AST 35 ALT 21 Alkaline Phosphatase 92 Total Protein 7.8 Albumin 3.1 L ASSESSMENT AND PLAN: 62 year old woman with a history of HTN, HLD, DM, CAD status post [place] 2003, DVT, right hip replacement, CABG in 2003 with stents, systolic CHF s/p ICD pacemaker , COPD, current smoker, and hypothyroidism who presents to the ER via EMS for shortness of breath and found to be in acute systolic CHF -Acute on chronic systolic HF exacerbation with anasarca -LIANNA, likely from CHF+/ medication induced -Facial puffiness, likely from CHF as improved with diuresis -Hypoglycemia -Hypernatremia, ?lab error, resolved -Acute transaminitis, suspect passive hepatic congestion from severely low EF, improved -Mild troponin elevation, suspect demand induced from above -Hypokalemia -Hypomagnesemia -HTN -HLD Plan: Continue to improve, diuresing well, renal function improved. Decrease lasix to 40 mg IV daily, continue spironolactone 50 mg daily Renal/cardiology input appreciated. CT chest noted. Continue entresto. Strict I/Os (Lam placed) and daily weights. BGM AC and hs. LFts normalized. Abdominal US with fatty liver vs hepatocellular disease. Replete lytes prn. Continue statin DVTPPX with heparin PT eval noted Dispo planning to SNF over next 48 hours if continues to improve. Discussed with CM.
--- NOTE | 2017-12-07 18:11 | PN ---
Physical Exam: SUBJECTIVE: Patient seen and examined. No acute events overnight. Pt. complained of pain in her toes. OBJECTIVE: Vital Signs Period Temp Pulse Resp BP Sys/Santoro Pulse Ox Last 24 Hr 97.4 F-98.9 F 48-63 18-20 100-120/43-53 94-100 GENERAL: mild distress, sleeping flat on the bed LUNGS: mild crackles b/l- limited d/t noncompliance and body habitus HEART: soft heart beat, Regular rate and rhythm, S1, S2 without murmur ABDOMEN: firm diffusely tender to palpation, distended, normoactive bowel sounds EXTREMITIES: pain on toes R>L, cool, 1+ edema. SKIN: Warm, dry Laboratory Results - last 24 hr 12/06/17 12/07/17 12/07/17 21:44 05:48 08:00 WBC 4.5 RBC 3.80 Hgb 10.6 L Hct 32.9 MCV 86.7 MCH 28.0 MCHC 32.3 RDW 16.7 H Plt Count 152 MPV 8.9 Absolute Neuts (auto) 2.4 Neutrophils % 52.3 Neutrophils % (Manual) 59.6 Band Neutrophils % 0.0 Lymphocytes % 26.3 Lymphocytes % (Manual) 25.3 Monocytes % 20.6 H Monocytes % (Manual) 13 H Eosinophils % 0.0 Eosinophils % (Manual) 0.0 Basophils % 0.8 Basophils % (Manual) 2.0 Myelocytes % (Man) 0 Promyelocytes % (Man) 0 Blast Cells % (Manual) 0 Nucleated RBC % 0 Metamyelocytes 0 Hypochromia 0 Platelet Estimate Decreased Polychromasia 1+ Poikilocytosis 0 Anisocytosis 1+ Microcytosis 1+ Macrocytosis 0 Sodium Potassium Chloride Carbon Dioxide Anion Gap BUN Creatinine Creat Clearance w eGFR POC Glucometer 98 73 Random Glucose Calcium Phosphorus Magnesium Total Bilirubin AST ALT Alkaline Phosphatase Total Protein Albumin 12/07/17 12/07/17 12/07/17 08:00 11:25 16:38 WBC RBC Hgb Hct MCV MCH MCHC RDW Plt Count MPV Absolute Neuts (auto) Neutrophils % Neutrophils % (Manual) Band Neutrophils % Lymphocytes % Lymphocytes % (Manual) Monocytes % Monocytes % (Manual) Eosinophils % Eosinophils % (Manual) Basophils % Basophils % (Manual) Myelocytes % (Man) Promyelocytes % (Man) Blast Cells % (Manual) Nucleated RBC % Metamyelocytes Hypochromia Platelet Estimate Polychromasia Poikilocytosis Anisocytosis Microcytosis Macrocytosis Sodium 141 Potassium 3.7 Chloride 97 L Carbon Dioxide 41 H Anion Gap 3 L BUN 28 H Creatinine 1.1 H Creat Clearance w eGFR 50.01 POC Glucometer 114 98 Random Glucose 69 L Calcium 9.4 Phosphorus 3.0 Magnesium 1.9 Total Bilirubin 2.8 H AST 35 ALT 21 Alkaline Phosphatase 92 Total Protein 7.8 Albumin 3.1 L Active Medications Current Medications Acetaminophen (Tylenol -) 325 mg PO Q6H PRN PRN Reason: PAIN LEVEL 6-10 Last Admin: 12/03/17 10:33 Dose: 325 mg Albuterol/Ipratropium (Duoneb -) 1 amp NEB Q6H PRN PRN Reason: SHORTNESS OF BREATH Last Admin: 12/05/17 20:04 Dose: 1 amp Clopidogrel Bisulfate (Plavix -) 75 mg PO DAILY [facility] Last Admin: 12/07/17 10:26 Dose: 75 mg Furosemide (Lasix Injection -) 40 mg IVPUSH DAILY [facility] Heparin Sodium (Porcine) (Heparin -) 5,000 unit SQ TID [facility] Last Admin: 12/07/17 14:41 Dose: 5,000 unit Levothyroxine Sodium (Synthroid -) 75 mcg PO DAILY@0700 [facility] Last Admin: 12/07/17 06:09 Dose: 75 mcg Metoprolol Succinate (Toprol Xl -) 100 mg PO DAILY [facility] Last Admin: 12/07/17 10:26 Dose: 100 mg Nicotine (Nicoderm Patch -) 7 mg TD DAILY [facility] Last Admin: 12/07/17 10:27 Dose: 7 mg Sacubitril/Valsartan (Entresto 49 Mg-51 Mg Tablet) 1 tab PO BID [facility] Last Admin: 12/07/17 10:27 Dose: 1 tab Spironolactone (Aldactone -) 50 mg PO DAILY [facility] Last Admin: 12/07/17 10:26 Dose: 50 mg ASSESSMENT/PLAN: 62 y/o female with PMH systolic CHF with EF 25% s/p ICD pacemaker, HTN, HLD, DM , COPD, hypothyroidism, CAD s/p CABG x2 and ID 2003, presents with complaint of shortness of breath. CHF exacerbation -Last echo EF 25%, severely dilated and hypertrophic LV -ECG showed 1st degree heart block with PVC -Elevated troponins 0.06 -Troponins x 2 negative -Adjusted Lasix 80mg BID PO(12/02/17) -follow intake & outputs, daily weights: Weight on admission: 100.335kgs; Weight 12/06/17(98.431 kg), Weight Today(97.159 kg) -patient amenable to continued cardiac monitoring -Readjusted Lasix to 40mg BID IVP and c/w Aldactone 50mg PO per Nephrology consult. -Pt. was unable to tolerate US Doppler to r/o Superior Vena Cava Syndrome, however Pt. is negative for SVC Syndome d/t patent subclavian and internal jugular vessels. Dyspnea -Continue oxygen 5L nasal canula -Duonebs Q6 hours -Pt. denies orthopnea today(12/03/17) -CTScan-extensive edematous changes throughout the subcutaneous tissues of the chest, upper abdomen and both breasts. Moderate pleural effusion of the right breast. Hypokalemia -Likely secondary to diuretic -Oral KCl -IV KCl [id number] X3 doses (11/27/17) -given 40 meq K-Dur @ 15:05 -resolved K+: 4.5 (11/29/17) -K+ 3.4 (12/06/17)---> given 40mek K-Dur Abdominal Pain -AST 42, Bili 2.9 on admission. -Abdominal U/S: R. Renal cyst 2.5cm, coarse echotexture suggestive of fatty infiltration or hepatocellular disease -reduced abdominal pain from admission, intermittent in nature. Hypoglycemia -given D50w 25gm TWICE, last dose 10/29/17 AM -monitoring blood glucose q6h -glucose has been above 50 during the day, currently at 83 (11/29/17). -Glucose 60 (11/30/17) -if glucose below 50, repeat D50w 25gm dose. -Asymptomatic: resolved HTN - c/w Metoprolol - c/w aldactone Hypothyroidism -Continue Synthroid DM -Insulin sliding scale -Fingerstick blood glucose monitoring Smoking -Nicotine patch -Pt. is amenable to starting the nicotine patch as of 12/03/17 Hypoalbuminemia -Seasonal Package Handler consult -likely 2/2 systolic CHF -elevated LFTs -appreciate abd. US FEN - No IV fluids at this time - Oral KCl and IVKCl Q4 hours X 3 doses (11/27/17)---> K+: 3.8 on rpt. AM labs ()--> Given an additional 40meq at 15:05 (11/28/17) - K+ 3.4 (12/06/17)---> given 40mek K-Dur - Diabetic/ Low sodium diet - Magnesium: 1.5 (11/27/17)--> Given Mg Sulfate, M.1 on rpt labs (11/28/17) - Magnesium 1.7 (12/06/17)---> Given Mg Sulfate - Fluid restriction to 1L - Strict Is and Os - Appreciated Nephrology Consult. - Placed Lam(12/04/17)- Good urine output 650ml (12/05/17) Dispo - patient lives at home by herself - no longer has VNS or home health aide - Pt. amenable to going to [facility] for rehabilitation or any other SNF EXCEPT [facility]--- Likely for Sunday - Appreciated Palliative Care note (12/04/17). We will f/u with DNR/DNI status at a later time. - PT evaluated patient to walk 10 ft x 1 with a minimum of 2 for assistance and a walker. Visit type - Emergency Visit Emergency Visit: Yes ED Registration Date: 11/27/17 Care time: The patient presented to the Emergency Department on the above date and was hospitalized for further evaluation of their emergent condition. - New Patient This patient is new to me today: No - Critical Care Critical Care patient: No - Discharge Referral Referred to [facility] No
[2017-12-08] MEDS: LEVOTHYROXINE NA 75 MCG TABLET (FP) PO SCH (06:31)
[2017-12-08] MEDS: HEPARIN NA (PORCINE) 5,000 UNITS/ML 1ML VIAL SQ SCH ×3 (06:31→21:44)
[2017-12-08 07:42] LABS: CHLORIDE 98 mmol/L (98-107)
--- NOTE | 2017-12-08 08:27 | PN ---
Physical Exam: SUBJECTIVE: Patient seen and examined at bed side , no acute events over night , fluid over loaded is improving , breathing is better. sleeping in bed non cooperative with exam but feeling much better. OBJECTIVE: Vital Signs Period Temp Pulse Resp BP Sys/Santoro Pulse Ox Last 24 Hr 98.1 F-98.9 F 47-127 18-20 93-117/39-99 100-100 GENERAL: sleeping in bed in NAD HEAD: Normal with no signs of trauma. NECK: supple. LUNGS: dimished breath sound at the base , weak inspiration. HEART: Regular rate and rhythm, S1, S2 without murmur, rub or gallop. ABDOMEN: obese, Soft, nontender, nondistended, normoactive bowel sounds, EXTREMITIES: 2+ pulses, warm, well-perfused, +1 edema NEUROLOGICAL: no focal deficit SKIN: Warm, dry, normal turgor, Active Medications Generic Name Dose Route Start Last Admin Trade Name Freq PRN Reason Stop Dose Admin Acetaminophen 325 mg 12/01/17 21:01 12/03/17 10:33 Tylenol - PO 325 mg Q6H PRN Administration PAIN LEVEL 6-10 Albuterol/Ipratropium 1 amp 11/30/17 09:37 12/05/17 20:04 Duoneb - NEB 1 amp Q6H PRN Administration SHORTNESS OF BREATH Clopidogrel Bisulfate 75 mg 11/27/17 10:00 12/07/17 10:26 Plavix - PO 75 mg DAILY RINA Administration Furosemide 40 mg 12/08/17 10:00 Lasix Injection - IVPUSH DAILY [facility] Heparin Sodium (Porcine) 5,000 unit 11/27/17 06:00 12/08/17 06:31 Heparin - SQ 5,000 unit TID RINA Administration Levothyroxine Sodium 75 mcg 11/27/17 07:00 12/08/17 06:31 Synthroid - PO 75 mcg DAILY@0700 RINA Administration Metoprolol Succinate 100 mg 11/27/17 10:00 12/07/17 10:26 Toprol Xl - PO 100 mg DAILY RINA Administration Nicotine 7 mg 11/27/17 10:00 12/07/17 10:27 Nicoderm Patch - TD 7 mg DAILY RINA Administration Sacubitril/Valsartan 1 tab 12/01/17 22:00 12/07/17 22:32 Entresto 49 Mg-51 Mg Tablet PO Not Given BID RINA Spironolactone 50 mg 12/05/17 12:15 12/07/17 10:26 Aldactone - PO 50 mg DAILY RINA Administration CBC, BMP 12/07/17 08:00 12/08/17 05:55 ASSESSMENT/PLAN: 62 year old woman with a history of HTN, HLD, DM, CAD status post SD 2003, DVT, right hip replacement, CABG in 2003 with stents, systolic CHF s/p ICD pacemaker , COPD, current smoker, and hypothyroidism who presents to the ER via EMS for shortness of breath and found to be in acute systolic CHF #Acute on chronic systolic and diastolic heart failure, NYHA class 3 * Pt continues with generalized edema, though improving, and weight decreased substantially overnight for the first time since admission. * BP stable. * CT chest: right moderate pleural effusion * Last echo EF 25%, severely dilated and hypertrophic LV * ECG showed 1st degree heart block with PVC * change Lasix to 80mg po daily , follow renal function and cut down if worsening * cont aldactone 50 mg po daily * monitor intake & outputs, daily weights: put out 2 L last 24 hour * cont cardiac monitoring #Dyspnea, improving * Continue oxygen 5L NC * Duonebs Q6 hours * CTScan-extensive edematous changes throughout the subcutaneous tissues of the chest, upper abdomen and both breasts. Moderate pleural effusion of the right breast. #Hypokalemia, resolved * Likely secondary to diuretic * Oral KCl as needed * monitor BMP #Abdominal Pain, improving * AST 42, Bili 2.9 on admission. * Abdominal U/S: R. Renal cyst 2.5cm, coarse echotexture suggestive of fatty infiltration vs hepatocellular disease #Hypoglycemia * given D50w 25gm TWICE, last dose 10/29/17 AM * monitoring blood glucose q6h * glucose has been above 50 during the day, today 69 * if glucose below 50, repeat D50w 25gm dose. * snack at bed time #HTN * c/w Metoprolol 100 mg po daily * c/w aldactone 50 mg po daily * cont entresto () 1 tab po BID #Hypothyroidism * Continue Synthroid 75 mcg po daily #DM * Insulin sliding scale * Fingerstick blood glucose monitoring #Smoking * Nicotine patch 7 mg TD daily #Hypoalbuminemia * likely 2/2 systolic CHF, Solder Making Supervisor consult * elevated LFTs * abd US reviewed #FEN * F: no standing * E: monitor BMP and replenished as needed * N: low NA/Diabetic diet #Dispo * continue to monitor in TELE * Pending SNF acceptance * DNR/DNI to be discussed with pt and family Visit type - Emergency Visit Emergency Visit: Yes ED Registration Date: 11/27/17 Care time: The patient presented to the Emergency Department on the above date and was hospitalized for further evaluation of their emergent condition. - New Patient This patient is new to me today: Yes Date on this admission: 12/08/17 - Critical Care Critical Care patient: No - Discharge Referral Referred to [facility] Med P.C.: No
--- NOTE | 2017-12-08 08:53 | PN ---
Teaching Attending Note Name of Resident: Israel Tafoya ATTENDING PHYSICIAN STATEMENT I saw and evaluated the patient. I reviewed the resident's note and discussed the case with the resident. I agree with the resident's findings and plan as documented with exceptions below. SUBJECTIVE: Patient seen and examined. Feels better, breathing improved, no new complaints. OBJECTIVE: Vital Signs Period Temp Pulse Resp BP Sys/Santoro Pulse Ox Last 24 Hr 98.1 F-98.9 F 47-127 18-20 93-117/39-99 100-100 Intake & Output 12/05/17 12/06/17 12/07/17 12/08/17 23:59 23:59 23:59 23:59 Intake Total 400 950 324 50 Output Total 3000 1850 3000 Balance -8330 -900 -2338 50 Weight 217 lb 214 lb 3.2 oz General: up out of bed, with nursing, no acute distress Chest: decreased breath sounds in bases, improved air entry and co-operation Abdomen:soft, NT Extremities: improved pitting pedal edema SKin: improved subcutanous edema HEENT: facial swelling markedly improved Active Medications Acetaminophen (Tylenol -) 325 mg PO Q6H PRN PRN Reason: PAIN LEVEL 6-10 Last Admin: 12/03/17 10:33 Dose: 325 mg Albuterol/Ipratropium (Duoneb -) 1 amp NEB Q6H PRN PRN Reason: SHORTNESS OF BREATH Last Admin: 12/05/17 20:04 Dose: 1 amp Clopidogrel Bisulfate (Plavix -) 75 mg PO DAILY [facility] Last Admin: 12/07/17 10:26 Dose: 75 mg Furosemide (Lasix -) 80 mg PO DAILY [facility] Heparin Sodium (Porcine) (Heparin -) 5,000 unit SQ TID [facility] Last Admin: 12/08/17 06:31 Dose: 5,000 unit Levothyroxine Sodium (Synthroid -) 75 mcg PO DAILY@0700 [facility] Last Admin: 12/08/17 06:31 Dose: 75 mcg Metoprolol Succinate (Toprol Xl -) 100 mg PO DAILY [facility] Last Admin: 12/07/17 10:26 Dose: 100 mg Nicotine (Nicoderm Patch -) 7 mg TD DAILY [facility] Last Admin: 12/07/17 10:27 Dose: 7 mg Sacubitril/Valsartan (Entresto 49 Mg-51 Mg Tablet) 1 tab PO BID [facility] Last Admin: 12/07/17 22:32 Dose: Not Given Spironolactone (Aldactone -) 50 mg PO DAILY [facility] Last Admin: 12/07/17 10:26 Dose: 50 mg Laboratory Results - last 24 hr 12/07/17 12/07/17 12/07/17 08:00 11:25 16:38 Neutrophils % (Manual) 59.6 Band Neutrophils % 0.0 Lymphocytes % (Manual) 25.3 Monocytes % (Manual) 13 H Eosinophils % (Manual) 0.0 Basophils % (Manual) 2.0 Myelocytes % (Man) 0 Promyelocytes % (Man) 0 Blast Cells % (Manual) 0 Nucleated RBC % 0 Metamyelocytes 0 Hypochromia 0 Platelet Estimate Decreased Polychromasia 1+ Poikilocytosis 0 Anisocytosis 1+ Microcytosis 1+ Macrocytosis 0 POC Glucometer 114 98 Direct Bilirubin 12/08/17 12/08/17 04:55 05:55 Neutrophils % (Manual) Band Neutrophils % Lymphocytes % (Manual) Monocytes % (Manual) Eosinophils % (Manual) Basophils % (Manual) Myelocytes % (Man) Promyelocytes % (Man) Blast Cells % (Manual) Nucleated RBC % Metamyelocytes Hypochromia Platelet Estimate Polychromasia Poikilocytosis Anisocytosis Microcytosis Macrocytosis POC Glucometer 82 Direct Bilirubin 1.6 H ASSESSMENT AND PLAN: 62 year old woman with a history of HTN, HLD, DM, CAD status post [place] 2003, DVT, right hip replacement, CABG in 2003 with stents, systolic CHF s/p ICD pacemaker , COPD, current smoker, and hypothyroidism who presents to the ER via EMS for shortness of breath and found to be in acute systolic CHF -Acute on chronic systolic HF exacerbation with anasarca -LIANNA, likely from CHF+/ medication induced -Facial puffiness, likely from CHF as improved with diuresis -Hypoglycemia -Hypernatremia, ?lab error, resolved -Acute transaminitis, suspect passive hepatic congestion from severely low EF, improved -Mild troponin elevation, suspect demand induced from above -Hypokalemia -Hypomagnesemia -HTN -HLD Plan: Continue to improve, diuresing well, renal function improved. Hypotensive now, change lasix to 80 mg daily, follow up renal function today. Continue spironolactone 50 mg daily Renal/cardiology input appreciated. CT chest noted. Continue entresto. Strict I/Os (Lam placed) and daily weights. BGM AC and hs. LFts normalized. Abdominal US with fatty liver vs hepatocellular disease. Replete lytes prn. Continue statin DVTPPX with heparin PT eval noted Dispo planning to SNF tomorrow if continues to improve. DIscusswed with patient and RN and all questions answered.
[2017-12-08] MEDS ORDERED: FUROSEMIDE 40 MG/4 ML INJECTABLE VIAL IVPUSH SCH (10:00)
[2017-12-08] MEDS ORDERED: PT OWN MED DRAWER 7, Y5N ONE (10:30)
[2017-12-08] MEDS: FUROSEMIDE 40 MG TABLET (FP) PO SCH (10:33)
[2017-12-08] MEDS: SPIRONOLACTONE 25 MG TABLET (FP) PO SCH (10:33)
[2017-12-08] MEDS: CLOPIDOGREL BISULFATE 75 MG TABLET (FP) PO SCH (10:33)
[2017-12-08] MEDS: SACUBITRIL/VALSARTAN 49 MG-51 MG TABLET PO SCH ×2 (10:34→21:45)
[2017-12-08] MEDS: NICOTINE 7 MG/24 HOURS TOPICAL PATCH TD SCH (10:34)
--- NOTE | 2017-12-08 12:24 | PN ---
Progress Note (short form) - Note Progress Note: RENAL Asleep arousable very somnolent Last Vital Signs Temp Pulse Resp BP Pulse Ox 97.6 F 61 20 95/50 96 12/08/17 10:00 12/08/17 10:00 12/08/17 10:00 12/08/17 10:00 12/08/17 09:00 lungs decreased breath sounds cvs s1 s2 rr abd globose, firm on left lateral decub ext +edema CBC, BMP 12/07/17 08:00 Current Medications Generic Name Dose Route Start Last Admin Trade Name Freq PRN Reason Stop Dose Admin Acetaminophen 325 mg 12/01/17 21:01 12/03/17 10:33 Tylenol - PO 325 mg Q6H PRN Administration PAIN LEVEL 6-10 Albuterol/Ipratropium 1 amp 11/30/17 09:37 12/05/17 20:04 Duoneb - NEB 1 amp Q6H PRN Administration SHORTNESS OF BREATH Clopidogrel Bisulfate 75 mg 11/27/17 10:00 12/08/17 10:33 Plavix - PO 75 mg DAILY RINA Administration Furosemide 80 mg 12/08/17 10:00 12/08/17 10:33 Lasix - PO 80 mg DAILY RINA Administration Heparin Sodium (Porcine) 5,000 unit 11/27/17 06:00 12/08/17 06:31 Heparin - SQ 5,000 unit TID RINA Administration Levothyroxine Sodium 75 mcg 11/27/17 07:00 12/08/17 06:31 Synthroid - PO 75 mcg DAILY@0700 RINA Administration Metoprolol Succinate 100 mg 11/27/17 10:00 12/08/17 10:33 Toprol Xl - PO 100 mg DAILY RINA Administration Nicotine 7 mg 11/27/17 10:00 12/08/17 10:34 Nicoderm Patch - TD 7 mg DAILY RINA Administration Sacubitril/Valsartan 1 tab 12/01/17 22:00 12/08/17 10:34 Entresto 49 Mg-51 Mg Tablet PO 1 tab BID RINA Administration Spironolactone 50 mg 12/05/17 12:15 12/08/17 10:33 Aldactone - PO 50 mg DAILY RINA Administration Impression 1. LIANNA 2. CHF 3. volume overload 4. HTN 5. HLD 6. DM 7. CAD 8. COPD 9. active smoker 10. anasarca 11. hypokalemia Plan -continue diuretics -consider increasing spironolactone -keep on tele -abdominal sono, r/o ascites and if so a paracentesis MV
[2017-12-08 12:36] LABS: ANION GAP 10 (8-16); BLOOD UREA NITROGEN 27 mg/dL (7-18); CALCIUM 9.1 mg/dL (8.5-10.1); CO2 36 mmol/L (21-32); GLUCOSE,RANDOM 69 mg/dL (74-106); MAGNESIUM 1.7 mg/dL (1.8-2.4); POTASSIUM 4.1 mmol/L (3.5-5.1); SODIUM 144 mmol/L (136-145)
[2017-12-08 12:37] LABS: ALBUMIN 2.8 g/dl (3.4-5.0); ALK PHOS 87 U/L (45-117); BILIRUBIN,TOTAL 2.1 mg/dL (0.2-1.0); SGOT/AST 30 U/L (15-37); SGPT/ALT 19 U/L (12-78); TOT PROT 7.1 g/dl (6.4-8.2)
--- NOTE | 2017-12-08 13:14 | PN ---
Progress Note, Physician Chief Complaint: Cardiology f/u for Drs. العلي and Fauzia: History of Present Illness: Dyspnea improving. - Current Medication List Current Medications: Active Medications Acetaminophen (Tylenol -) 325 mg PO Q6H PRN PRN Reason: PAIN LEVEL 6-10 Last Admin: 12/03/17 10:33 Dose: 325 mg Albuterol/Ipratropium (Duoneb -) 1 amp NEB Q6H PRN PRN Reason: SHORTNESS OF BREATH Last Admin: 12/05/17 20:04 Dose: 1 amp Clopidogrel Bisulfate (Plavix -) 75 mg PO DAILY [facility] Last Admin: 12/08/17 10:33 Dose: 75 mg Furosemide (Lasix -) 80 mg PO DAILY [facility] Last Admin: 12/08/17 10:33 Dose: 80 mg Heparin Sodium (Porcine) (Heparin -) 5,000 unit SQ TID [facility] Last Admin: 12/08/17 06:31 Dose: 5,000 unit Levothyroxine Sodium (Synthroid -) 75 mcg PO DAILY@0700 [facility] Last Admin: 12/08/17 06:31 Dose: 75 mcg Metoprolol Succinate (Toprol Xl -) 100 mg PO DAILY [facility] Last Admin: 12/08/17 10:33 Dose: 100 mg Nicotine (Nicoderm Patch -) 7 mg TD DAILY [facility] Last Admin: 12/08/17 10:34 Dose: 7 mg Sacubitril/Valsartan (Entresto 49 Mg-51 Mg Tablet) 1 tab PO BID [facility] Last Admin: 12/08/17 10:34 Dose: 1 tab Spironolactone (Aldactone -) 50 mg PO DAILY [facility] Last Admin: 12/08/17 10:33 Dose: 50 mg - Objective Vital Signs: Vital Signs Temperature 97.6 F 12/08/17 10:00 Pulse Rate 61 12/08/17 10:00 Respiratory Rate 20 12/08/17 10:00 Blood Pressure 95/50 12/08/17 10:00 O2 Sat by Pulse Oximetry (%) 96 12/08/17 09:00 Constitutional: Yes: No Distress, Calm Neck: Yes: Supple Cardiovascular: Yes: Regular Rate and Rhythm Respiratory: Yes: Regular, Diminished, On Nasal O2 Gastrointestinal: Yes: Normal Bowel Sounds, Soft, Abdomen, Obese Edema: Yes Edema: LLE: 1+, RLE: 1+ Labs: CBC, BMP 12/07/17 08:00 12/08/17 05:55 Assessment/Plan - Problems (1) Elevated liver function tests Assessment/Plan: mildly elevated since admission; f/u serially with CHF treatment, f/u abd U/S Hx fatty liver. Code(s): R94.5 - ABNORMAL RESULTS OF LIVER FUNCTION STUDIES (2) AICD (automatic cardioverter/defibrillator) present Code(s): Z95.810 - PRESENCE OF AUTOMATIC (IMPLANTABLE) CARDIAC DEFIBRILLATOR (3) Acute on chronic systolic and diastolic heart failure, NYHA class 3 Assessment/Plan: Pt continues with generalized edema, though improving, and weight decreased substantially overnight for the first time since admission. BP stable. CT chest: right moderate pleural effusion As discussed with tube closing machine operator, spironolactone was restarted with furosemide 80 qd, (spironolactone 50 qd should be continued permanently, given severe systolic LV dysfunction). Continue metoprolol ER 100 qd and Entresto 49/51 bid Keep Mg 2-2.4, K 4-4.5, and PO4 2.5-3.5. Is and Os; daily weight. BUN/Cr, electrolytes. Code(s): I50.43 - ACUTE ON CHRONIC COMBINED SYSTOLIC AND DIASTOLIC HRT FAIL (4) Cigarette nicotine dependence Assessment/Plan: Encourage use of nicotine patch. Code(s): F17.210 - NICOTINE DEPENDENCE, CIGARETTES, UNCOMPLICATED (5) Coronary artery disease Assessment/Plan: HX coronary stent; hx [place]. on Plavix 75 qd Code(s): I25.10 - ATHSCL HEART DISEASE OF [place] CORONARY ARTERY W/O ANG PCTRS (6) Diabetes Code(s): E11.9 - TYPE 2 DIABETES MELLITUS WITHOUT COMPLICATIONS Qualifiers: Diabetes mellitus type: type 2 Diabetes mellitus usp insulin use: with manager terminal use Diabetes mellitus complication status: with unspecified complications Qualified Code(s): E11.8 - Type 2 diabetes mellitus with unspecified complications (7) Fatty liver Code(s): K76.0 - FATTY (CHANGE OF) LIVER, NOT ELSEWHERE CLASSIFIED (8) Hyperlipidemia Code(s): E78.5 - HYPERLIPIDEMIA, UNSPECIFIED (9) Hypertension Code(s): I10 - ESSENTIAL (PRIMARY) HYPERTENSION (10) Hypothyroidism Code(s): E03.9 - HYPOTHYROIDISM, UNSPECIFIED on Synthroid 75 qd (11) Peripheral neuropathy Code(s): G62.9 - POLYNEUROPATHY, UNSPECIFIED Qualifiers: Peripheral neuropathy type: polyneuropathy, unspecified Qualified Code(s): G62.9 - Polyneuropathy, unspecified (12) Sleep apnea Code(s): G47.30 - SLEEP APNEA, UNSPECIFIED (13) Status post THR (total hip replacement) Code(s): Z96.649 - PRESENCE OF UNSPECIFIED ARTIFICIAL HIP JOINT (14) Hypokalemia Code(s): E87.6 - HYPOKALEMIA (15) Chronic abdominal pain Code(s): R10.9 - UNSPECIFIED ABDOMINAL PAIN; G89.29 - OTHER CHRONIC PAIN (16) Facial swelling Code(s): R22.0 - LOCALIZED SWELLING, MASS AND LUMP, HEAD
[2017-12-08] MEDS: MAGNESIUM OXIDE 400 MG TABLET (FP) PO SCH (14:02)
[2017-12-09] MEDS: HEPARIN NA (PORCINE) 5,000 UNITS/ML 1ML VIAL SQ SCH (06:36)
[2017-12-09] MEDS: LEVOTHYROXINE NA 75 MCG TABLET (FP) PO SCH (06:37)
[2017-12-09 08:22] LABS: ANION GAP 2 (8-16); BLOOD UREA NITROGEN 24 mg/dL (7-18); CALCIUM 9.1 mg/dL (8.5-10.1); CHLORIDE 97 mmol/L (98-107); CO2 42 mmol/L (21-32); CREATININE 0.9 mg/dL (0.55-1.02); GLUCOSE,RANDOM 73 mg/dL (74-106); MAGNESIUM 1.6 mg/dL (1.8-2.4); PHOSPHOROUS 3.2 mg/dL (2.5-4.9); SODIUM 141 mmol/L (136-145)
[2017-12-09] MEDS: ALBUTEROL SO4 2.5/IPRATROPIUM 0.5 INH SOL 3 ML VIAL.NEB. NEB PRN (08:30)
[2017-12-09] MEDS ORDERED: PT OWN MED DRAWER 7, Y5N ONE ×2 (09:38→21:55)
[2017-12-09] MEDS: MAGNESIUM OXIDE 400 MG TABLET (FP) PO SCH (09:51)
[2017-12-09] MEDS: FUROSEMIDE 40 MG TABLET (FP) PO SCH (09:51)
[2017-12-09] MEDS: CLOPIDOGREL BISULFATE 75 MG TABLET (FP) PO SCH (09:51)
[2017-12-09] MEDS: NICOTINE 7 MG/24 HOURS TOPICAL PATCH TD SCH (09:56)
--- NOTE | 2017-12-09 10:29 | PN ---
Progress Note, Physician Chief Complaint: Cardiology f/u for Drs. العلي and Fauzia: History of Present Illness: Dyspnea improving, resting comfortable. - Current Medication List Current Medications: Active Medications Acetaminophen (Tylenol -) 325 mg PO Q6H PRN PRN Reason: PAIN LEVEL 6-10 Last Admin: 12/03/17 10:33 Dose: 325 mg Albuterol/Ipratropium (Duoneb -) 1 amp NEB Q6H PRN PRN Reason: SHORTNESS OF BREATH Last Admin: 12/09/17 08:30 Dose: 1 amp Clopidogrel Bisulfate (Plavix -) 75 mg PO DAILY [facility] Last Admin: 12/09/17 09:51 Dose: 75 mg Furosemide (Lasix -) 80 mg PO DAILY [facility] Last Admin: 12/09/17 09:51 Dose: 80 mg Levothyroxine Sodium (Synthroid -) 75 mcg PO DAILY@0700 [facility] Last Admin: 12/09/17 06:37 Dose: 75 mcg Magnesium Oxide (Mag-Ox -) 800 mg PO DAILY [facility] Stop: 12/10/17 10:01 Last Admin: 12/09/17 09:51 Dose: 800 mg Metoprolol Succinate (Toprol Xl -) 100 mg PO DAILY [facility] Last Admin: 12/08/17 10:33 Dose: 100 mg Nicotine (Nicoderm Patch -) 7 mg TD DAILY [facility] Last Admin: 12/09/17 09:56 Dose: Not Given Sacubitril/Valsartan (Entresto 49 Mg-51 Mg Tablet) 1 tab PO BID [facility] Last Admin: 12/08/17 21:45 Dose: 1 tab Spironolactone (Aldactone -) 50 mg PO DAILY [facility] Last Admin: 12/08/17 10:33 Dose: 50 mg - Objective Vital Signs: Vital Signs Temperature 97.9 F 12/08/17 17:00 Pulse Rate 49 L 12/08/17 17:00 Respiratory Rate 20 12/08/17 20:41 Blood Pressure 110/54 12/08/17 17:00 O2 Sat by Pulse Oximetry (%) 96 12/08/17 20:41 Constitutional: Yes: No Distress, Calm Neck: Yes: Supple Cardiovascular: Yes: Regular Rate and Rhythm Respiratory: Yes: Regular, Diminished, On Nasal O2 Gastrointestinal: Yes: Normal Bowel Sounds, Soft Edema: Yes Edema: LLE: Trace, RLE: Trace Labs: CBC, BMP 12/07/17 08:00 12/09/17 07:18 Assessment/Plan - Problems (1) Elevated liver function tests Assessment/Plan: mildly elevated since admission; f/u serially with CHF treatment, f/u abd U/S Hx fatty liver. Code(s): R94.5 - ABNORMAL RESULTS OF LIVER FUNCTION STUDIES (2) AICD (automatic cardioverter/defibrillator) present Code(s): Z95.810 - PRESENCE OF AUTOMATIC (IMPLANTABLE) CARDIAC DEFIBRILLATOR (3) Acute on chronic systolic and diastolic heart failure, NYHA class 3 Assessment/Plan: Pt continues with generalized edema, though improving, and weight decreased substantially overnight for the first time since admission. BP stable. CT chest: right moderate pleural effusion As discussed with cook relief, spironolactone was restarted with furosemide 80 qd, (spironolactone 50 qd should be continued permanently, given severe systolic LV dysfunction). Continue metoprolol ER 100 qd and Entresto 49/51 bid Keep Mg 2-2.4, K 4-4.5, and PO4 2.5-3.5. Is and Os; daily weight. BUN/Cr, electrolytes. Code(s): I50.43 - ACUTE ON CHRONIC COMBINED SYSTOLIC AND DIASTOLIC HRT FAIL (4) Cigarette nicotine dependence Assessment/Plan: Encourage use of nicotine patch. Code(s): F17.210 - NICOTINE DEPENDENCE, CIGARETTES, UNCOMPLICATED (5) Coronary artery disease Assessment/Plan: HX coronary stent; hx [place] on Plavix 75 qd Code(s): I25.10 - ATHSCL HEART DISEASE OF [place] CORONARY ARTERY W/O ANG PCTRS (6) Diabetes Code(s): E11.9 - TYPE 2 DIABETES MELLITUS WITHOUT COMPLICATIONS Qualifiers: Diabetes mellitus type: type 2 Diabetes mellitus termite technician insulin use: with termite technician use Diabetes mellitus complication status: with unspecified complications Qualified Code(s): E11.8 - Type 2 diabetes mellitus with unspecified complications (7) Fatty liver Code(s): K76.0 - FATTY (CHANGE OF) LIVER, NOT ELSEWHERE CLASSIFIED (8) Hyperlipidemia Code(s): E78.5 - HYPERLIPIDEMIA, UNSPECIFIED (9) Hypertension Code(s): I10 - ESSENTIAL (PRIMARY) HYPERTENSION (10) Hypothyroidism Code(s): E03.9 - HYPOTHYROIDISM, UNSPECIFIED on Synthroid 75 qd (11) Peripheral neuropathy Code(s): G62.9 - POLYNEUROPATHY, UNSPECIFIED Qualifiers: Peripheral neuropathy type: polyneuropathy, unspecified Qualified Code(s): G62.9 - Polyneuropathy, unspecified (12) Sleep apnea Code(s): G47.30 - SLEEP APNEA, UNSPECIFIED (13) Status post THR (total hip replacement) Code(s): Z96.649 - PRESENCE OF UNSPECIFIED ARTIFICIAL HIP JOINT (14) Hypokalemia Code(s): E87.6 - HYPOKALEMIA (15) Chronic abdominal pain Code(s): R10.9 - UNSPECIFIED ABDOMINAL PAIN; G89.29 - OTHER CHRONIC PAIN (16) Facial swelling Code(s): R22.0 - LOCALIZED SWELLING, MASS AND LUMP, HEAD
[2017-12-09] MEDS: SACUBITRIL/VALSARTAN 49 MG-51 MG TABLET PO SCH ×2 (12:28→21:57)
[2017-12-09] MEDS: SPIRONOLACTONE 25 MG TABLET (FP) PO SCH (12:28)
[2017-12-09] MEDS ORDERED: MAGNESIUM SULF 50% (8.12 MEQ/2 ML-1 GM VIAL) IVPB ONE (12:31)
[2017-12-09] MEDS ORDERED: MAGNESIUM 1GM/D5W - 1 GM/100 ML IVPB IVPB ONE (13:00)
--- NOTE | 2017-12-09 14:43 | PN ---
Progress Note (short form) - Note Progress Note: RENAL Awake, sitting up in wheel chair Last Vital Signs Temp Pulse Resp BP Pulse Ox 97.6 F 61 20 95/50 96 12/08/17 10:00 12/08/17 10:00 12/08/17 10:00 12/08/17 10:00 12/08/17 09:00 lungs decreased breath sounds cvs s1 s2 rr abd globose, firm on left lateral decub ext +edema CBC, BMP 12/07/17 08:00 12/09/17 07:18 Current Medications Generic Name Dose Route Start Last Admin Trade Name Freq PRN Reason Stop Dose Admin Acetaminophen 325 mg 12/01/17 21:01 12/03/17 10:33 Tylenol - PO 325 mg Q6H PRN Administration PAIN LEVEL 6-10 Albuterol/Ipratropium 1 amp 11/30/17 09:37 12/09/17 08:30 Duoneb - NEB 1 amp Q6H PRN Administration SHORTNESS OF BREATH Clopidogrel Bisulfate 75 mg 11/27/17 10:00 12/09/17 09:51 Plavix - PO 75 mg DAILY RINA Administration Furosemide 80 mg 12/08/17 10:00 12/09/17 09:51 Lasix - PO 80 mg DAILY RINA Administration Levothyroxine Sodium 75 mcg 11/27/17 07:00 12/09/17 06:37 Synthroid - PO 75 mcg DAILY@0700 RINA Administration Magnesium Oxide 800 mg 12/08/17 13:15 12/09/17 09:51 Mag-Ox - PO 12/10/17 10:01 800 mg DAILY RINA Administration Metoprolol Succinate 100 mg 11/27/17 10:00 12/09/17 12:28 Toprol Xl - PO Not Given DAILY [facility] Nicotine 7 mg 11/27/17 10:00 12/09/17 09:56 Nicoderm Patch - TD Not Given DAILY [facility] Sacubitril/Valsartan 1 tab 12/01/17 22:00 12/09/17 12:28 Entresto 49 Mg-51 Mg Tablet PO Not Given BID [facility] Spironolactone 50 mg 12/05/17 12:15 12/09/17 12:28 Aldactone - PO Not Given DAILY [facility] Impression 1. LIANNA 2. CHF 3. volume overload 4. HTN 5. HLD 6. DM 7. CAD 8. COPD 9. active smoker 10. anasarca 11. hypokalemia 12. DANIELLE elevated 13 low anion gap Plan -continue diuretics -consider increasing spironolactone -keep on tele -abdominal sono, r/o ascites and if so a paracentesis -repeat danielle -spep MV
--- NOTE | 2017-12-09 15:45 | PN ---
Physical Exam: SUBJECTIVE: Patient seen and examined, breathing improved, when asked if has abdominal pain, reports 'yes'. OBJECTIVE: Vital Signs Period Temp Pulse Resp BP Sys/Santoro Pulse Ox Last 24 Hr 97.9 F-98.4 F 49-68 18-20 101-110/54-67 95-96 GENERAL: standing in room, no acute distress Chest: Decreased breath sounds at bases Abdomen:distended, minimal generalized tenderness, no voluntary or involuntary guarding or rigidity Extremities1-2+ pedal pitting edema Laboratory Results - last 24 hr 12/08/17 12/08/17 12/09/17 17:00 23:17 05:17 Sodium Potassium Chloride Carbon Dioxide Anion Gap BUN Creatinine Creat Clearance w eGFR POC Glucometer 129 66 80 Random Glucose Calcium Phosphorus Magnesium 12/09/17 12/09/17 07:18 11:40 Sodium 141 Potassium 4.0 Chloride 97 L Carbon Dioxide 42 H Anion Gap 2 L BUN 24 H Creatinine 0.9 Creat Clearance w eGFR > 60 POC Glucometer 161 Random Glucose 73 L Calcium 9.1 Phosphorus 3.2 Magnesium 1.6 L Active Medications Generic Name Dose Route Start Last Admin Trade Name Freq PRN Reason Stop Dose Admin Acetaminophen 325 mg 12/01/17 21:01 12/03/17 10:33 Tylenol - PO 325 mg Q6H PRN Administration PAIN LEVEL 6-10 Albuterol/Ipratropium 1 amp 11/30/17 09:37 12/09/17 08:30 Duoneb - NEB 1 amp Q6H PRN Administration SHORTNESS OF BREATH Clopidogrel Bisulfate 75 mg 11/27/17 10:00 12/09/17 09:51 Plavix - PO 75 mg DAILY RINA Administration Furosemide 80 mg 12/08/17 10:00 12/09/17 09:51 Lasix - PO 80 mg DAILY RINA Administration Levothyroxine Sodium 75 mcg 11/27/17 07:00 12/09/17 06:37 Synthroid - PO 75 mcg DAILY@0700 RINA Administration Magnesium Oxide 800 mg 12/08/17 13:15 12/09/17 09:51 Mag-Ox - PO 12/10/17 10:01 800 mg DAILY RINA Administration Metoprolol Succinate 100 mg 11/27/17 10:00 12/09/17 12:28 Toprol Xl - PO Not Given DAILY RINA Nicotine 7 mg 11/27/17 10:00 12/09/17 09:56 Nicoderm Patch - TD Not Given DAILY RINA Sacubitril/Valsartan 1 tab 12/01/17 22:00 12/09/17 12:28 Entresto 49 Mg-51 Mg Tablet PO Not Given BID RINA Spironolactone 50 mg 12/05/17 12:15 12/09/17 12:28 Aldactone - PO Not Given DAILY RINA ASSESSMENT/PLAN: 62 year old woman with a history of HTN, HLD, DM, CAD status post [place] 2003, DVT, right hip replacement, CABG in 2003 with stents, systolic CHF s/p ICD pacemaker , COPD, current smoker, and hypothyroidism who presents to the ER via EMS for shortness of breath and found to be in acute systolic CHF -Acute on chronic systolic HF exacerbation with anasarca -LIANNA, likely from CHF+/ medication induced -Facial puffiness, likely from CHF as improved with diuresis -Hypoglycemia -Hypernatremia, ?lab error, resolved -Acute transaminitis, suspect passive hepatic congestion from severely low EF, improved -Mild troponin elevation, suspect demand induced from above -Hypokalemia -Hypomagnesemia -HTN -HLD -h/o positive AMILCAR Plan: Continue to improve, diuresing well, renal function improved. Lasix to 80 mg daily, Renal function stable. Continue spironolactone 50 mg daily Renal input noted, repeat SPEP/UPEP/AMILCAR. US abdomen. Cardiology input appreciated. CT chest noted. Continue entresto. Strict I/Os (Lam placed) and daily weights. BGM AC and hs. LFts normalized. Abdominal US with fatty liver vs hepatocellular disease. Replete lytes prn. Continue statin DVTPPX with heparin PT eval noted Dispo planning to SNF in 24-48 hours if continues to improve. Discussed with patient and RN and all questions answered Visit type - Emergency Visit Emergency Visit: Yes ED Registration Date: 11/27/17 Care time: The patient presented to the Emergency Department on the above date and was hospitalized for further evaluation of their emergent condition. - New Patient This patient is new to me today: No - Critical Care Critical Care patient: No - Discharge Referral Referred to [facility] Med P.C.: No
[2017-12-10] MEDS: LEVOTHYROXINE NA 75 MCG TABLET (FP) PO SCH (06:56)
[2017-12-10 07:36] LABS: CHLORIDE 98 mmol/L (98-107); POTASSIUM 3.9 mmol/L (3.5-5.1); SODIUM 142 mmol/L (136-145)
[2017-12-10 07:44] LABS: ALBUMIN 2.8 g/dl (3.4-5.0); ALK PHOS 84 U/L (45-117); ANION GAP 4 (8-16); BILIRUBIN,TOTAL 2.1 mg/dL (0.2-1.0); BLOOD UREA NITROGEN 23 mg/dL (7-18); CALCIUM 8.7 mg/dL (8.5-10.1); CO2 40 mmol/L (21-32); GLUCOSE,RANDOM 79 mg/dL (74-106); MAGNESIUM 1.8 mg/dL (1.8-2.4); PHOSPHOROUS 3.1 mg/dL (2.5-4.9); SGOT/AST 30 U/L (15-37); SGPT/ALT 16 U/L (12-78); TOT PROT 6.9 g/dl (6.4-8.2)
--- NOTE | 2017-12-10 09:16 | PN ---
Progress Note, Physician History of Present Illness: no acute events overnight. patient states her breathing is doing better and she has been getting up out of bed more. she denies any CP/N/V however she is still experiencing tenderness in the abdomen. she is very anxious to go home. her volume status is much improved. Her Cr is now down to 1.0. - Current Medication List Current Medications: Active Medications Acetaminophen (Tylenol -) 325 mg PO Q6H PRN PRN Reason: PAIN LEVEL 6-10 Last Admin: 12/03/17 10:33 Dose: 325 mg Albuterol/Ipratropium (Duoneb -) 1 amp NEB Q6H PRN PRN Reason: SHORTNESS OF BREATH Last Admin: 12/09/17 08:30 Dose: 1 amp Clopidogrel Bisulfate (Plavix -) 75 mg PO DAILY [facility] Last Admin: 12/09/17 09:51 Dose: 75 mg Furosemide (Lasix -) 80 mg PO DAILY [facility] Last Admin: 12/09/17 09:51 Dose: 80 mg Levothyroxine Sodium (Synthroid -) 75 mcg PO DAILY@0700 [facility] Last Admin: 12/10/17 06:56 Dose: Not Given Magnesium Oxide (Mag-Ox -) 800 mg PO DAILY [facility] Stop: 12/10/17 10:01 Last Admin: 12/09/17 09:51 Dose: 800 mg Metoprolol Succinate (Toprol Xl -) 100 mg PO DAILY [facility] Last Admin: 12/09/17 12:28 Dose: Not Given Nicotine (Nicoderm Patch -) 7 mg TD DAILY [facility] Last Admin: 12/09/17 09:56 Dose: Not Given Sacubitril/Valsartan (Entresto 49 Mg-51 Mg Tablet) 1 tab PO BID [facility] Last Admin: 12/09/17 21:57 Dose: 1 tab Spironolactone (Aldactone -) 50 mg PO DAILY [facility] Last Admin: 12/09/17 12:28 Dose: Not Given - Objective Vital Signs: Vital Signs Temperature 98.3 F 12/10/17 05:45 Pulse Rate 66 12/10/17 05:45 Respiratory Rate 20 12/10/17 05:45 Blood Pressure 98/36 12/10/17 05:45 O2 Sat by Pulse Oximetry (%) 95 12/09/17 22:00 Constitutional: Yes: Calm Cardiovascular: Yes: Regular Rate and Rhythm, S1, S2 Respiratory: Yes: Diminished (diminished breath sounds at lung bases) Gastrointestinal: Yes: Abdomen, Obese, Distention, Tenderness (diffuse) Edema: Yes Edema: LLE: 1+, RLE: 1+ Neurological: Yes: Alert Labs: CBC, BMP 12/07/17 08:00 12/10/17 05:30 Problem List - Problems (1) LIANNA (acute kidney injury) Code(s): N17.9 - ACUTE KIDNEY FAILURE, UNSPECIFIED (2) Acute on chronic systolic and diastolic heart failure, NYHA class 3 Code(s): I50.43 - ACUTE ON CHRONIC COMBINED SYSTOLIC AND DIASTOLIC HRT FAIL (3) Chronic abdominal pain Code(s): R10.9 - UNSPECIFIED ABDOMINAL PAIN; G89.29 - OTHER CHRONIC PAIN Assessment/Plan patients volume status is much improved and her Cr is now down to 1.0 -continue with diuresis: now on lasix 80 PO daily -monitor I's and O's and daily weights -continue to monitor CMP -AMILCAR and SPEP pending given previous history of positive AMILCAR
[2017-12-10] MEDS: SACUBITRIL/VALSARTAN 49 MG-51 MG TABLET PO SCH (09:52)
[2017-12-10] MEDS: SPIRONOLACTONE 25 MG TABLET (FP) PO SCH (09:52)
[2017-12-10] MEDS: MAGNESIUM OXIDE 400 MG TABLET (FP) PO SCH (09:52)
[2017-12-10] MEDS: FUROSEMIDE 40 MG TABLET (FP) PO SCH (09:53)
[2017-12-10] MEDS: CLOPIDOGREL BISULFATE 75 MG TABLET (FP) PO SCH (09:53)
[2017-12-10] MEDS: NICOTINE 7 MG/24 HOURS TOPICAL PATCH TD SCH (09:53)
--- NOTE | 2017-12-10 10:48 | PN ---
Progress Note, Physician History of Present Illness: The patient is a 62 yr old black F with a PMH of HTN, HLD, DM, CAD status post [place] 2003, CABG in 2003 with stents, severe systolic CHF s/p ICD, COPD current smoker, hypothyroid who presents to the ER via EMS for shortness of breath. The patient is accompanied by her grandson who provides the history. The grandson states that the patient has had 4 months of worsening swelling and shortness of breath. The grandson states that he "finally convinced" his grandmother to come to the ER. The grandmother states that she does not feel well but does not provide any other history. Pt had self-reduced furosemide at home from 80 mg bid to 20 mg bid for the past ?few weeks. - Current Medication List Current Medications: Active Medications Acetaminophen (Tylenol -) 325 mg PO Q6H PRN PRN Reason: PAIN LEVEL 6-10 Last Admin: 12/03/17 10:33 Dose: 325 mg Albuterol/Ipratropium (Duoneb -) 1 amp NEB Q6H PRN PRN Reason: SHORTNESS OF BREATH Last Admin: 12/09/17 08:30 Dose: 1 amp Clopidogrel Bisulfate (Plavix -) 75 mg PO DAILY [facility] Last Admin: 12/10/17 09:53 Dose: 75 mg Furosemide (Lasix -) 80 mg PO DAILY [facility] Last Admin: 12/10/17 09:53 Dose: 80 mg Levothyroxine Sodium (Synthroid -) 75 mcg PO DAILY@0700 [facility] Last Admin: 12/10/17 06:56 Dose: Not Given Metoprolol Succinate (Toprol Xl -) 100 mg PO DAILY [facility] Last Admin: 12/10/17 09:53 Dose: Not Given Nicotine (Nicoderm Patch -) 7 mg TD DAILY [facility] Last Admin: 12/10/17 09:53 Dose: Not Given Sacubitril/Valsartan (Entresto 49 Mg-51 Mg Tablet) 1 tab PO BID [facility] Last Admin: 12/10/17 09:52 Dose: Not Given Spironolactone (Aldactone -) 50 mg PO DAILY [facility] Last Admin: 12/10/17 09:52 Dose: Not Given - Objective Vital Signs: Vital Signs Temperature 98.3 F 12/10/17 05:45 Pulse Rate 66 12/10/17 05:45 Respiratory Rate 20 12/10/17 05:45 Blood Pressure 98/36 12/10/17 05:45 O2 Sat by Pulse Oximetry (%) 95 12/09/17 22:00 Eyes: Yes: WNL, Conjunctiva Clear, EOM Intact HENT: Yes: WNL, Atraumatic, Normocephalic Neck: Yes: WNL, Supple, Trachea Midline Cardiovascular: Yes: WNL, Regular Rate and Rhythm Respiratory: Yes: WNL, Regular, CTA Bilaterally Gastrointestinal: Yes: WNL, Normal Bowel Sounds Genitourinary: Yes: WNL Musculoskeletal: Yes: WNL Extremities: Yes: WNL Edema: Yes Integumentary: Yes: WNL Neurological: Yes: WNL, Alert, Oriented ...Motor Strength: WNL Psychiatric: Yes: WNL Labs: CBC, BMP 12/07/17 08:00 12/10/17 05:30 Assessment/Plan - Problems (1) Elevated liver function tests Assessment/Plan: mildly elevated since admission; f/u serially with CHF treatment. Hx fatty liver. Code(s): R94.5 - ABNORMAL RESULTS OF LIVER FUNCTION STUDIES (2) AICD (automatic cardioverter/defibrillator) present Code(s): Z95.810 - PRESENCE OF AUTOMATIC (IMPLANTABLE) CARDIAC DEFIBRILLATOR (3) Acute on chronic systolic and diastolic heart failure, NYHA class 3 Assessment/Plan: Pt continues with generalized edema, though improving, and weight decreased substantially overnight for the first time since admission. BP stable. CT chest: right moderate pleural effusion As discussed with wrapper caser, spironolactone was restarted with furosemide ( restarted on IVP), (spironolactone should be continued permanently, given severe systolic LV dysfunction). Continue metoprolol ER and Entresto. Keep Mg 2-2.4, K 4-4.5, and PO4 2.5-3.5. Is and Os; daily weight. BUN/Cr, electrolytes. Code(s): I50.43 - ACUTE ON CHRONIC COMBINED SYSTOLIC AND DIASTOLIC HRT FAIL (4) Cigarette nicotine dependence Assessment/Plan: Encourage use of nicotine patch. Code(s): F17.210 - NICOTINE DEPENDENCE, CIGARETTES, UNCOMPLICATED (5) Coronary artery disease Assessment/Plan: HX coronary stent; hx [place]. Code(s): I25.10 - ATHSCL HEART DISEASE OF [place] CORONARY ARTERY W/O ANG PCTRS (6) Diabetes Code(s): E11.9 - TYPE 2 DIABETES MELLITUS WITHOUT COMPLICATIONS Qualifiers: Diabetes mellitus type: type 2 Diabetes mellitus remote computer terminal operator insulin use: with remote computer terminal operator use Diabetes mellitus complication status: with unspecified complications Qualified Code(s): E11.8 - Type 2 diabetes mellitus with unspecified complications (7) Fatty liver Code(s): K76.0 - FATTY (CHANGE OF) LIVER, NOT ELSEWHERE CLASSIFIED (8) Hyperlipidemia Code(s): E78.5 - HYPERLIPIDEMIA, UNSPECIFIED (9) Hypertension Code(s): I10 - ESSENTIAL (PRIMARY) HYPERTENSION (10) Hypothyroidism Code(s): E03.9 - HYPOTHYROIDISM, UNSPECIFIED (11) Peripheral neuropathy Code(s): G62.9 - POLYNEUROPATHY, UNSPECIFIED Qualifiers: Peripheral neuropathy type: polyneuropathy, unspecified Qualified Code(s): G62.9 - Polyneuropathy, unspecified (12) Sleep apnea Code(s): G47.30 - SLEEP APNEA, UNSPECIFIED (13) Status post THR (total hip replacement) Code(s): Z96.649 - PRESENCE OF UNSPECIFIED ARTIFICIAL HIP JOINT (14) Hypokalemia Code(s): E87.6 - HYPOKALEMIA (15) Chronic abdominal pain Code(s): R10.9 - UNSPECIFIED ABDOMINAL PAIN; G89.29 - OTHER CHRONIC PAIN (16) Facial swelling Code(s): R22.0 - LOCALIZED SWELLING, MASS AND LUMP, HEAD
--- NOTE | 2017-12-10 13:30 | PN ---
Teaching Attending Note Name of Resident: Vivian Germain (Nephrology) ATTENDING PHYSICIAN STATEMENT I saw and evaluated the patient. I reviewed the resident's note and discussed the case with the resident. I agree with the resident's findings and plan as documented. Renal Pt seen and examined at bedside. She is awake and alert. She denies shortness of breath. She expresses that she wants to go home. Current Medications Generic Name Dose Route Start Last Admin Trade Name Freq PRN Reason Stop Dose Admin Acetaminophen 325 mg 12/01/17 21:01 12/03/17 10:33 Tylenol - PO 325 mg Q6H PRN Administration PAIN LEVEL 6-10 Albuterol/Ipratropium 1 amp 11/30/17 09:37 12/09/17 08:30 Duoneb - NEB 1 amp Q6H PRN Administration SHORTNESS OF BREATH Clopidogrel Bisulfate 75 mg 11/27/17 10:00 12/10/17 09:53 Plavix - PO 75 mg DAILY RINA Administration Furosemide 80 mg 12/08/17 10:00 12/10/17 09:53 Lasix - PO 80 mg DAILY RINA Administration Levothyroxine Sodium 75 mcg 11/27/17 07:00 12/10/17 06:56 Synthroid - PO Not Given DAILY@0700 [facility] Metoprolol Succinate 100 mg 11/27/17 10:00 12/10/17 09:53 Toprol Xl - PO Not Given DAILY [facility] Nicotine 7 mg 11/27/17 10:00 12/10/17 09:53 Nicoderm Patch - TD Not Given DAILY [facility] Sacubitril/Valsartan 1 tab 12/01/17 22:00 12/10/17 09:52 Entresto 49 Mg-51 Mg Tablet PO Not Given BID [facility] Spironolactone 50 mg 12/05/17 12:15 12/10/17 09:52 Aldactone - PO Not Given DAILY [facility] Last Vital Signs Temp Pulse Resp BP Pulse Ox 97.2 F L 64 18 102/70 95 12/10/17 10:00 12/10/17 10:00 12/10/17 10:00 12/10/17 10:00 12/09/17 22:00 Selected Entries 11/27/17 12/10/17 20:00 06:00 Weight 221 lb 3.2 oz 214 lb Laboratory Tests 12/10/17 12/10/17 05:30 05:30 CLARKE M-Mir Pending AMILCAR Screen Pending cardio s1s2 pulm on nc o2 GI soft obese ext edema neuro lethargic skin neg rash Impression 1. LIANNA 2. CHF 3. volume overload 4. HTN 5. HLD 6. DM 7. CAD 8. COPD 9. active smoker 10. anasarca 11. hypokalemia Plan - cont lasix - cont aldactone - monitor lytes - follow spep - pt is poorly compliant as outpt - discussed with medical team - weight is improved - follow ultrasound
[2017-12-10 14:17] VITALS: BP 98/50; PULSE 76; TEMP 98
--- NOTE | 2017-12-10 15:23 | PN ---
Teaching Attending Note Name of Resident: Onesimo Simmons ATTENDING PHYSICIAN STATEMENT I saw and evaluated the patient. I reviewed the resident's note and discussed the case with the resident. I agree with the resident's findings and plan as documented with exceptions below. SUBJECTIVE: patient seen and examined. Upset that has to go to abdominal ultrasound. no complaints, otherwise. OBJECTIVE: Vital Signs Period Temp Pulse Resp BP Sys/Santoro Pulse Ox Last 24 Hr 97.2 F-98.5 F 59-76 18-20 98-121/36-70 95-95 Intake & Output 12/07/17 12/08/17 12/09/17 12/10/17 23:59 23:59 23:59 23:59 Intake Total 324 674 830 100 Output Total 3000 3700 Balance -2676 -3026 830 100 Weight 214 lb 3.2 oz 177 lb 12.8 oz 217 lb 214 lb General: lying in bed in no acute distress Chest: decreased breath sounds at bases Abdomen:distended, non tender Extremities: no edema Active Medications Acetaminophen (Tylenol -) 325 mg PO Q6H PRN PRN Reason: PAIN LEVEL 6-10 Last Admin: 12/03/17 10:33 Dose: 325 mg Albuterol/Ipratropium (Duoneb -) 1 amp NEB Q6H PRN PRN Reason: SHORTNESS OF BREATH Last Admin: 12/09/17 08:30 Dose: 1 amp Clopidogrel Bisulfate (Plavix -) 75 mg PO DAILY [facility] Last Admin: 12/10/17 09:53 Dose: 75 mg Furosemide (Lasix -) 80 mg PO DAILY [facility] Last Admin: 12/10/17 09:53 Dose: 80 mg Levothyroxine Sodium (Synthroid -) 75 mcg PO DAILY@0700 [facility] Last Admin: 12/10/17 06:56 Dose: Not Given Metoprolol Succinate (Toprol Xl -) 100 mg PO DAILY [facility] Last Admin: 12/10/17 09:53 Dose: Not Given Nicotine (Nicoderm Patch -) 7 mg TD DAILY [facility] Last Admin: 12/10/17 09:53 Dose: Not Given Sacubitril/Valsartan (Entresto 49 Mg-51 Mg Tablet) 1 tab PO BID [facility] Last Admin: 12/10/17 09:52 Dose: Not Given Spironolactone (Aldactone -) 50 mg PO DAILY [facility] Last Admin: 12/10/17 09:52 Dose: Not Given Laboratory Results - last 24 hr 12/09/17 12/09/17 12/10/17 17:26 21:47 05:16 Sodium Potassium Chloride Carbon Dioxide Anion Gap BUN Creatinine Creat Clearance w eGFR POC Glucometer 88 102 77 Random Glucose Calcium Phosphorus Magnesium Total Bilirubin AST ALT Alkaline Phosphatase Total Protein Albumin 12/10/17 12/10/17 05:30 06:40 Sodium 142 Potassium 3.9 Chloride 98 Carbon Dioxide 40 H Anion Gap 4 L BUN 23 H Creatinine 1.0 Creat Clearance w eGFR 55.82 POC Glucometer 83 Random Glucose 79 Calcium 8.7 Phosphorus 3.1 Magnesium 1.8 Total Bilirubin 2.1 H AST 30 ALT 16 Alkaline Phosphatase 84 Total Protein 6.9 Albumin 2.8 L Abdominal US neg for ascitis ASSESSMENT AND PLAN: 62 year old woman with a history of HTN, HLD, DM, CAD status post [place] 2003, DVT, right hip replacement, CABG in 2003 with stents, systolic CHF s/p ICD pacemaker , COPD, current smoker, and hypothyroidism who presents to the ER via EMS for shortness of breath and found to be in acute systolic CHF -Acute on chronic systolic HF exacerbation with anasarca -LIANNA, likely from CHF+/ medication induced -Facial puffiness, likely from CHF as improved with diuresis -Hypoglycemia -Hypernatremia, ?lab error, resolved -Acute transaminitis, suspect passive hepatic congestion from severely low EF, improved -Mild troponin elevation, suspect demand induced from above -Hypokalemia -Hypomagnesemia -HTN -HLD -h/o positive AMILCAR Plan: continues to improve. Abdominal US neg for ascitis. Discussed with Dr. Lowry, Lasix 80 mg daily, spironolactone 50 mg daily. Continue plavix/entresto. Compliance a concern, stressed with patient. Needs close outpatient follow up with nephrology and cardiology and weight and renal function monitoring. SPEP/AMILCAR pending d/c to SNF today. Discussed with patient in detail, all questions answered
--- NOTE | 2017-12-10 17:56 | DS ---
Physical Exam: SUBJECTIVE: Patient seen and examined. Pt. expresses that she wants to leave the hospital. C/o shooting pain in her feet. Denies chest pain or increased shortness of breath. OBJECTIVE: Vital Signs Period Temp Pulse Resp BP Sys/Santoro Pulse Ox Last 24 Hr 97.2 F-98.3 F 60-76 18-20 98-121/36-70 94-95 PHYSICAL EXAM GENERAL: The patient is awake, alert, and fully oriented, in mild distress, crying about trying to leave the hospital. LUNGS: Breath sounds equal, clear to auscultation bilaterally, no wheezes, no crackles, no accessory muscle use -limited exam d/t body habitus and poor effort. HEART: Regular rate and rhythm, S1, S2 without murmur -limited exam d/t body habitus and poor effort ABDOMEN: firm, tender to palpation diffusely, distended, BS+ EXTREMITIES: anasarca, no edema, warm, tender to palpation? SKIN: dry cracked skin on legs, anasarca in legs and abdomen LABS Laboratory Results - last 24 hr 12/09/17 12/10/17 12/10/17 21:47 05:16 05:30 Sodium 142 Potassium 3.9 Chloride 98 Carbon Dioxide 40 H Anion Gap 4 L BUN 23 H Creatinine 1.0 Creat Clearance w eGFR 55.82 POC Glucometer 102 77 Random Glucose 79 Calcium 8.7 Phosphorus 3.1 Magnesium 1.8 Total Bilirubin 2.1 H AST 30 ALT 16 Alkaline Phosphatase 84 Total Protein 6.9 Albumin 2.8 L 12/10/17 12/10/17 06:40 16:25 Sodium Potassium Chloride Carbon Dioxide Anion Gap BUN Creatinine Creat Clearance w eGFR POC Glucometer 83 101 Random Glucose Calcium Phosphorus Magnesium Total Bilirubin AST ALT Alkaline Phosphatase Total Protein Albumin HOSPITAL COURSE: Date of Admission:11/27/17 Date of Discharge: 12/10/17 Discharge Summary Reason For Visit: ACUTE ON CHRONIC CONGESTIVE HEART FAILURE Current Active Problems CHF exacerbation (Acute) Chronic abdominal pain (Acute) Facial swelling (Acute) Acute combined systolic and diastolic ACC/AHA stage C congestive heart failure ( Chronic) Condition: Good - Instructions Diet, Activity, Other Instructions: The following medication changes have been done: Your spironolactone has been increased to 50 mg daily. Continue your lasix 80 mg daily. Take other medications as instructed Advise daily weights and notify your doctor if weight gain > 3 lbs in 2 days. It is very important that you take your medications as prescribed and have close follow up with your doctor. Following blood tests have been sent results of which are currently pending: SPEP (Serum protein electrophoresis) AMILCAR Please have [facility] doctor or Dr. Lowry follow up on the results. Also you are advise close monitoring of your kidney function and potassium levels on this medication. Advise blood test BMP (basic metabolic panel) in 3-5 days at [facility]. Please return to the ED if you are experiencing light-headedness, dizziness, chest pain, or increased shortness of breath or any new concerns. Referrals: Parrish Ferrer MD [Primary Care Provider] - Dick Cage MD [Staff Physician] - 2 Weeks Johan Lowry MD [Staff Physician] - 1 Week Disposition: LONG-TERM FACILITY - Home Medications Comprehensive Discharge Medication List: Ambulatory Orders Clopidogrel Bisulfate [Plavix -] 75 mg PO DAILY #30 tablet 08/02/17 Levothyroxine [Synthroid -] 75 mcg PO DAILY@0700 30 Days #30 tablet 08/02/17 Sacubitril/Valsartan [Entresto 24 mg-26 mg Tablet] 1 tab PO BID #60 tablet 08/14 Metoprolol Succinate 100 mg PO DAILY 11/27/17 Furosemide [Lasix] 80 mg PO DAILY 11/28/17 Spironolactone [Aldactone -] 50 mg PO DAILY #30 tablet 12/10/17 - Discharge Referral Referred to [facility] Med P.C.: No
[2017-12-12 01:14] VITALS: BMI 33.5
== END 2017-12-10 18:00 | DRG 292 ==
LOC: JER 22:21 → JERBED 11-27 00:15 → J4W 11-27 16:11
PROVIDERS: ADMIT Internal Medicine; ATTEND Hospitalist
DX: I11.0 Hypertensive heart disease with heart failure (principal); E87.0 Hyperosmolality and hypernatremia; N17.9 Acute kidney failure, unspecified; I24.8 Other forms of acute ischemic heart disease; I50.23 Acute on chronic systolic (congestive) heart failure; I25.10 Atherosclerotic heart disease of native coronary artery without angina pectoris; E78.5 Hyperlipidemia, unspecified; I25.2 Old myocardial infarction; E03.9 Hypothyroidism, unspecified; J44.9 Chronic obstructive pulmonary disease, unspecified; I27.20 Pulmonary hypertension, unspecified; F17.210 Nicotine dependence, cigarettes, uncomplicated; E11.42 Type 2 diabetes mellitus with diabetic polyneuropathy; M54.5 Low back pain; M19.90 Unspecified osteoarthritis, unspecified site; E11.649 Type 2 diabetes mellitus with hypoglycemia without coma; K57.90 Diverticulosis of intestine, part unspecified, without perforation or abscess without bleeding; E87.6 Hypokalemia; I34.0 Nonrheumatic mitral (valve) insufficiency; E66.8 Other obesity; Z68.33 Body mass index [BMI] 33.0-33.9, adult; F41.8 Other specified anxiety disorders; R22.0 Localized swelling, mass and lump, head; R94.5 Abnormal results of liver function studies; E83.42 Hypomagnesemia; G89.29 Other chronic pain; R10.9 Unspecified abdominal pain; G47.30 Sleep apnea, unspecified; K76.0 Fatty (change of) liver, not elsewhere classified; R26.81 Unsteadiness on feet; Z87.442 Personal history of urinary calculi; Z95.810 Presence of automatic (implantable) cardiac defibrillator; Z95.5 Presence of coronary angioplasty implant and graft; Z95.1 Presence of aortocoronary bypass graft; Z96.641 Presence of right artificial hip joint; Z86.718 Personal history of other venous thrombosis and embolism
CPT/HCPCS: 36415; 71045-TC-FY; 71250-TC; 76700-TC; 80048; 80053; 81003; 82248; 82550; 82553; 82803; 82962; 83036; 83735; 83880; 84100; 84155; 84165; 84443; 84484; 85025; 86038; 87086; 93005; 93010; 93970-TC; 94640; 97116-GP; 97161-GP; 99283-25; J1644; J7620

== ENCOUNTER 2018-09-22 17:05 | Emergency (ER) | payer OTHER, BC ==
[2018-09-22 17:15] VITALS: BMI 29.2
[2018-09-22] MEDS ORDERED: DEXTROSE 50%-WATER 25 GM/50 ML DISP.SYRIN ONE ×2 (17:23→17:24)
[2018-09-22 17:41] VITALS: TEMP 98.8
--- NOTE | 2018-09-22 17:51 | PDOC ---
History of Present Illness - General Chief Complaint: Pain Stated Complaint: SOB, CHEST PAIN Time Seen by Provider: 09/22/18 17:24 History Source: Patient Exam Limitations: No Limitations - History of Present Illness Initial Comments: 63 yo F with a hx of CHF (25% EF, severely dilated LV, global hypokinesis; 2017 echo), NIDDM, HTN, hypothyroidism, CAD (2x IA, s/p CABG, s/p 2x stents), AICD, afib, and COPD presents to the emergency department with headache and back pain. Per the patient, she was at rest in her home when at 4pm her chronic headache became acute. Gradual in onset and located globally. Denies visual changes, nausea, vomiting, and dizziness. Endorses sound worsening headache. Currently, her headache terminated. Her back pain is throughout cervical, thoracic, and lumbar and is chronic in nature. Concurrently, she has global body aches. Per the daughter, she states her mother has not been taking her medications including entresto, metoprolol, 80 mg of furosemide, clopidogrel, and levothyroxine. Denies the following: fever, chills, nausea, vomiting, chest pain, SOB, abdominal pain, dysuria, hematuria, diarrhea, and melena. Past History - Past Medical History Allergies/Adverse Reactions: Allergies Allergy/AdvReac Type Severity Reaction Status Date / Time aspirin Allergy Mild Rash Verified 09/22/18 17:15 banana Allergy Hives Verified 09/22/18 17:15 tomato Allergy Verified 09/22/18 17:15 Home Medications: Ambulatory Orders Clopidogrel Bisulfate [Plavix -] 75 mg PO DAILY #30 tablet 08/02/17 Levothyroxine [Synthroid -] 75 mcg PO DAILY@0700 30 Days #30 tablet 08/02/17 Sacubitril/Valsartan [Entresto 24 mg-26 mg Tablet] 1 tab PO BID #60 tablet 08/14 Metoprolol Succinate 100 mg PO DAILY 11/27/17 Furosemide [Lasix] 80 mg PO DAILY 11/28/17 Spironolactone [Aldactone -] 25 mg PO DAILY 09/22/18 Anemia: No Asthma: Yes Cancer: No Cardiac Disorders: Yes (Stents, PM/Defib, STEMI, SYSTOLIC CHF,PULM HTN) CVA: No COPD: No CHF: Yes Dementia: No Diabetes: Yes GI Disorders: Yes Disorders: No HTN: Yes Hypercholesterolemia: Yes Kidney Stones: Yes Liver Disease: Yes Psychiatric Problems: Yes (depression.) Seizures: No Thyroid Disease: Yes (Hypo) - Surgical History Abdominal Surgery: Yes (hx of peg tube.) Appendectomy: No Cardiac Surgery: Yes (bypass,stent x2, CABG 2003, ICD/Pacer 7/15) Cholecystectomy: Yes (04/2016) Lung Surgery: (cabg 2003) Neurologic Surgery: No Orthopedic Surgery: Yes (Right THR) - Immunization History Immunization Up to Date: Yes - Suicide/Smoking/Psychosocial Hx Smoking Status: No Smoking History: Current every day smoker Have you smoked in the past 12 months: Yes Number of Cigarettes Smoked Daily: 20 Information on smoking cessation initiated: No 'Breaking Loose' booklet given: 11/27/17 Hx Alcohol Use: No Drug/Substance Use Hx: No Substance Use Type: None Hx Substance Use Treatment: No Review of Systems - Review of Systems Able to Perform ROS?: Yes Is the patient limited Turkish proficient: No Constitutional: Yes: Weakness. No: Chills, Diaphoresis, Fever HEENTM: No: Eye Pain, Recent change in vision, Ear Pain, Nose Pain, Throat Pain , Mouth Pain Respiratory: No: Cough, Shortness of Breath, Hemoptysis Cardiac (ROS): Yes: Edema. No: Chest Pain, Lightheadedness, Palpitations, Syncope, Chest Tightness ABD/GI: No: Constipated, Diarrhea, Nausea, Rectal Bleeding, Vomiting, Tarry Stools : No: Burning, Dysuria, Hematuria, Incontinence Musculoskeletal: Yes: Back Pain. No: Joint Pain, Neck Pain Integumentary: No: Bruising, Erythema, Rash Neurological: Yes: Headache, Unsteady Gait. No: Numbness, Tingling, Tremors, Ataxia, Dizziness Psychiatric: No: Change in Appetite Endocrine: No: Unexplained Weight Gain *Physical Exam - Vital Signs Last Vital Signs Temp Pulse Resp BP Pulse Ox 98.8 F 101 H 16 122/78 99 09/22/18 17:35 09/22/18 17:35 09/22/18 17:35 09/22/18 17:35 09/22/18 17:35 - Physical Exam General Appearance: Yes: Nourished, Appropriately Dressed, Obese. No: Apparent Distress, Intoxicated HEENT: positive: EOMI, GISSELLE, Normal Voice, Symmetrical, Pharynx Normal, Hearing Grossly Normal. negative: Pale Conjunctivae, Scleral Icterus (R), Scleral Icterus (L), Muffled/Hoarse voice, Pharyngeal Erythema, Tonsillar Exudate, Tonsillar Erythema, Nasal Congestion, Rhinorrhea, Sinus Tenderness, Excessive drooling Neck: positive: Trachea midline, Supple. negative: Tender, Lymphadenopathy (R) , Lymphadenopathy (L), Tender lateral, Tender midline Respiratory/Chest: negative: Chest Tender, Lungs Clear (decreased breath sounds) , Normal Breath Sounds (wheezing bilaterally present), Respiratory Distress, Accessory Muscle Use Cardiovascular: positive: Regular Rate, S1, S2, Systolic Murmur (grade 2), Irregularly Irregular Gastrointestinal/Abdominal: positive: Normal Bowel Sounds, Tender (diffusely. anasarca present. ), Protuberent Lymphatic: negative: Adenopathy Musculoskeletal: positive: Normal Inspection, Vertebral Tenderness (thoracic and lumbar midline). negative: CVA Tenderness Extremity: positive: Normal Capillary Refill, Normal Range of Motion, Swelling. negative: Normal Inspection (3+ pitting edema bilaterally LE), Tender, Calf Tenderness Integumentary: positive: Normal Color, Dry, Warm. negative: Swelling, Ecchymosis Neurologic: positive: beater dumper II-XII NML intact, Fully Oriented, Alert, Normal Mood/ Affect, Normal Response, Motor Strength 5/5. negative: EOM Palsy, Facial Droop , Sensory Deficit ED Treatment Course - LABORATORY CBC & Chemistry Diagram: 09/22/18 18:10 09/22/18 18:10 - ADDITIONAL ORDERS Additional order review: Laboratory Results 09/22/18 17:16 POC Glucometer 58 09/22/18 17:16 POC Glucometer 58 Medical Decision Making - Medical Decision Making 09/22/18 19:37 63 yo F with a hx of CHF (25% EF, severely dilated LV, global hypokinesis; 2017 echo), NIDDM, HTN, hypothyroidism, CAD (2x IA, s/p CABG, s/p 2x stents), AICD, afib, and COPD presents to the emergency department with headache and back pain. Initial vitals: Initial Vital Signs Temp Pulse Resp BP Pulse Ox 97.5 F L 100 H 22 H 123/69 100 09/22/18 17:12 09/22/18 17:12 09/22/18 17:12 09/22/18 17:12 09/22/18 17:12 Work up: ddx: differential includes the following: ACS vs pericarditis vs pericardial effusion vs pNA vs pleuritis vs costochondritis vs LIANNA vs CHF exacerbation vs COPD exacerbation Laboratory Tests 09/22/18 09/22/18 09/22/18 17:16 17:52 17:59 WBC RBC Hgb Hct MCV MCH MCHC RDW Plt Count MPV Absolute Neuts (auto) Neutrophils % Lymphocytes % Monocytes % Eosinophils % Basophils % Nucleated RBC % Sodium Potassium Chloride Carbon Dioxide Anion Gap BUN Creatinine Creat Clearance w eGFR POC Glucometer 58 124 Random Glucose Calcium Total Bilirubin AST ALT Alkaline Phosphatase Creatine Kinase Creatine Kinase Index CK-MB (CK-2) Troponin I B-Natriuretic Peptide Total Protein Albumin TSH Free T4 Urine Color Dk yellow Urine Appearance Cloudy Urine pH 5.0 Ur Specific [place] 1.028 Urine Protein 100 Urine Glucose (UA) 250 Urine Ketones 15 mg/dl Urine Blood 4+ H Urine Nitrite Positive H Urine Bilirubin Moderate Urine Urobilinogen 2.0 H Ur Leukocyte Esterase 1+ H Urine WBC (Auto) 5.7 Urine RBC (Auto) 110.2 U Pathogenic Cast Auto None U Epithel Cells (Auto) 16.9 U Sm Round Cell (Auto) None Urine Bacteria (Auto) 2.7 09/22/18 09/22/18 18:10 18:10 WBC 5.7 RBC 4.23 Hgb 11.9 Hct 38.2 D MCV 90.2 MCH 28.1 MCHC 31.1 L RDW 16.0 H Plt Count 216 D MPV 8.5 Absolute Neuts (auto) 4.1 Neutrophils % 71.1 D Lymphocytes % 13.9 D Monocytes % 14.6 H Eosinophils % 0.0 Basophils % 0.4 Nucleated RBC % 0 Sodium 139 Potassium 4.0 Chloride 100 Carbon Dioxide 26 Anion Gap 12 BUN 16 Creatinine 1.1 Creat Clearance w eGFR 49.85 POC Glucometer Random Glucose 57 L Calcium 9.3 Total Bilirubin 2.7 H AST 39 H ALT 25 Alkaline Phosphatase 101 Creatine Kinase 251 H Creatine Kinase Index 2.1 CK-MB (CK-2) 5.5 H Troponin I 0.23 H B-Natriuretic Peptide 6841.0 H Total Protein 6.9 Albumin 3.6 TSH 1.91 Free T4 1.69 H Urine Color Urine Appearance Urine pH Ur Specific [place] Urine Protein Urine Glucose (UA) Urine Ketones Urine Blood Urine Nitrite Urine Bilirubin Urine Urobilinogen Ur Leukocyte Esterase Urine WBC (Auto) Urine RBC (Auto) U Pathogenic Cast Auto U Epithel Cells (Auto) U Sm Round Cell (Auto) Urine Bacteria (Auto) troponins elevated, BNP elevated, elevated CKMB, bilirubin elevated, UA consistent with urinary tract infection. POC glucometer showed hypoglycemia and the patient was given 1 amp of D50. Patient was given 1 gram of IV tylenol. The patient's CXR shows pulmonary effusion on the left base with cardiomegaly. EKG findings show r wave in V6 that is changed from previous EKG. The patient is leaving against medical advice despite multiple times speaking to the patient on the risks associated with leaving and the benefits of staying in the hospital. The patient understands the risks associated with leaving against medical advice. The patient is clinically sober, alert and oriented to person, place, and time and is able to make logical statements when asked questions and produce unaltered speech. The patient appears to have intact insight and judement and reason and in my opinion has the capacity to make decisions. When I told the patient that her heart enzymes were elevated, she stated that she knows not taking her medications have worsened her clinical condition. When I stated if she understands the risks of not taking her medications, she stated she knows that it could make her heart and fluid status worse. The patient presented with global body pain with concerning pain in her chest, head, and back. I explained to the patient I am very concerned that her labs show ischemic demand on her heart with a worsening BNP and I explained to the patient that this could be causing her clinical symptoms of pain and increased fluid retention in her abdomen and legs bilaterally. The patient verbalized an understanding of my concerns and stated that she does not want to be admitted and can take her medications at home to treat her symptoms. I told the patient that because of the incomplete work up that I am unable to fully assess the extent of her deterioration. She verbally an understanding by stating that all she needs to do is take my pills everyday and that she has not been. I told the patient and her 2 daughters at bedside that she needed to be urgently evaluated by her primary medical doctor for medication adjustment and possible goals of care. The daughters expressed an understanding of the need to have her re-evaluated by her primary medical doctor. I stated to the patient the risks associated with forgoing further treatment within our hospital. I stated that in the short term, she could have further deterioration of cardiac function which could lead to worsening shortness of breath due to fluid back up. In addition, forgoing treatment includes not having proper doses of diuresis their fluid retention could continue to worsen. I have told the patient that if they leave and continue to let their condition be untreated, that she could deterioriate rapidly, become critically ill, and could possibly become permanently disabled or . I have offered the patient better pain control for their body aches and have offered the patient a different room to have them more comfortable. I spoke to the patient's 2 daughters, whom the patient lives with. Despite the daughters speaking to the mother, the mother continues to refuse admission and wishes to be discharged from the emergency department. The daughters were unable to convince the mother to stay for further evaluation. The patient continues to be unwilling despite multiple attempts to remedy the situation and attempts by the patient's daughters. They are refusing further care and contineu to wish to leave against medical advice. Understanding the patient's continued refusal, I gave strict return precautions to the patient and daughters. I told the patient that she can return at any time on any day for further care if she so chooses. I recommended for her to call EMS by using 911 if she needs to. In addition, I gave her information on congestive heart failure and gave her instructions to take her medications as prescribed. I instructed the daughters and the patient to have a follow up appointment with the primary medical doctor. The daughters responded with "she just saw them" which was late August 2018. I stated to them to call the office first thing in the morning and to state that she was seen in the emergency department and needs a prompt appointment. I asked the patient if she needs a refill on any of her prescriptions and she stated she has enough and does not need a refill. I spoke to Dr. Ferrer, the patient's primary medical doctor, on the phone at approximately 8:30 pm about the patient. Per Dr. Ferrer, they stated that the daughter is the home health aide and is paid to do so. The daughter states that her mother does not take her medications. I gave Dr. Ferrer was given a heads up that the daughters or the patient may call tomorrow for a follow up care appointment. Dr. Ferrer understood this and will follow up. 09/23/18 01:43 *DC/Admit/Observation/Transfer Diagnosis at time of Disposition: Chronic systolic congestive heart failure, Anasarca - Discharge Dispostion Disposition: AGAINST MEDICAL ADVICE Condition at time of disposition: Guarded - Referrals Referrals: Parrish Ferrer MD [Primary Care Provider] - - Patient Instructions Printed Discharge Instructions: DI for Heart Failure Additional Instructions: you were seen in the emergency department for the evaluation of your pain and over fluid levels. you are leaving against medical advice despite the risks stated to you which include possible . please follow up with your primary medical doctor within 24 hours after discharge for follow up care and management. please take your medications as prescribed. please return to the emergency department if you have worsening symptoms or new concerning symptoms. again you are leaving against medical advice but can return to the emergency department when you need to. thank you. - Post Discharge Activity
[2018-09-22] MEDS ORDERED: FUROSEMIDE 40 MG/4 ML INJECTABLE VIAL IVPUSH ONE (18:06)
[2018-09-22] MEDS ORDERED: ACETAMINOPHEN 1000 MG/100 ML VIAL (NON FORMULARY) IVPB ONE (18:06)
[2018-09-22] MEDS ORDERED: ACETAMINOPHEN INJECTION 100 ML IVPB ONE (18:09)
[2018-09-22] MEDS ORDERED: FUROSEMIDE 40 MG/4 ML INJECTABLE VIAL ONE (18:09)
[2018-09-22 18:14] LABS: BASO % 0.4 % (0-2.0); HEMATOCRIT 38.2 % (32.4-45.2); HEMOGLOBIN 11.9 GM/dL (10.7-15.3); LYMPH % 13.9 % (8-40); MCH 28.1 pg (25.7-33.7); MCHC 31.1 g/dl (32.0-36.0); MEAN CELL VOLUME 90.2 fl (80-96); MEAN PLT VOLUME 8.5 fl (7.5-11.1); MONO % 14.6 % (3.8-10.2); NEUT % 71.1 % (42.8-82.8); PLATELET COUNT 216 K/MM3 (134-434); RBC 4.23 M/mm3 (3.60-5.2); WHITE BLOOD COUNT 5.7 K/mm3 (4.0-10.0)
[2018-09-22 18:16] VITALS: BP 123/93; PULSE 99
[2018-09-22 18:47] LABS: URINE COLOR DK YELLOW
[2018-09-22 18:48] LABS: URINE APPEARANCE CLOUDY; URINE BILIRUBIN MODERATE (NEGATIVE); URINE GLUCOSE (UA) 250 (NEGATIVE); URINE KETONE 15 mg/dl (NEGATIVE)
[2018-09-22 18:50] LABS: URINE PROTEIN 100 (NEGATIVE)
[2018-09-22 18:51] LABS: URINE NITRITE POSITIVE (NEGATIVE)
[2018-09-22 18:52] LABS: URINE LEUK ESTERASE 1+ (NEGATIVE)
[2018-09-22 18:53] LABS: EPI CELLS 16.9 /HPF (0-5/HPF); URINE BACTERIA 2.7 /hpf (NEGATIVE); URINE RBC 110.2 /hpf (0-4); URINE WBC 5.7 /hpf (0-5)
[2018-09-22 18:53] LABS: ALBUMIN 3.6 g/dl (3.4-5.0); ALK PHOS 101 U/L (45-117); ANION GAP 12 MMOL/L (8-16); BILIRUBIN,TOTAL 2.7 mg/dL (0.2-1); BLOOD UREA NITROGEN 16 mg/dL (7-18); CALCIUM 9.3 mg/dL (8.5-10.1); CHLORIDE 100 mmol/L (98-107); CO2 26 mmol/L (21-32); CREATININE 1.1 mg/dL (0.55-1.3); GLUCOSE,RANDOM 57 mg/dL (74-106); SGOT/AST 39 U/L (15-37); SGPT/ALT 25 U/L (13-61); SODIUM 139 mmol/L (136-145); TOT PROT 6.9 g/dl (6.4-8.2)
[2018-09-22] MEDS ORDERED: CLOPIDOGREL BISULFATE 75 MG TABLET (FP) PO ONE (19:18)
--- NOTE | 2018-09-22 19:36 | PDOC ---
Documentation entered by Freya Willis SCRIBE, acting as scribe for Sandra Earl MD. Sandra Earl MD: This documentation has been prepared by the Alba hough Daisy, SCRIBE, under my direction and personally reviewed by me in its entirety. I confirm that the documentation accurately reflects all work, treatment, procedures, and medical decision making performed by me. Attending Attestation - Resident Resident Name: Khari Nunn - ED Attending Attestation I have performed the following: I have examined & evaluated the patient, The case was reviewed & discussed with the resident, I agree w/resident's findings & plan - HPI HPI: 09/22/18 17:44 The patient is a 63YOF with a PMH of HTN, HLD, DM, CAD status post NC 2003, CABG in 2003 with stents, systolic CHF s/p ICD pacemaker, COPD and hypothyroidism who presents to the ER with a headache, back pain, abdominal pain , chest pain, leg pain and swelling. She has not been taking her meds for the past month. Denies any recent falls or trauma. The patient is a current everyday smoker. The patient denies shortness of breath, dizziness, fever, chills, nausea, vomit , diarrhea and constipation. Denies dysuria, frequency, urgency and hematuria. Allergies: NKA Past surgical history: s/p CABG Social history: No reported drug or alcohol use. Current smoker. - Physicial Exam PE: 09/22/18 18:33 63-year-old female presents with complaint of head ache, abdominal pain, back pain and leg pain. Her daughter states that she has not been compliant with her medications for a month. 09/22/18 18:34 63-year-old female with complaint of all over body pain. Head is normocephalic, atraumatic. 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 Repeat troponins. Lam catheter to monitor urine output ADMISSION telemetry 09/22/18 20:01 The patient is adamantly refusing admission . The daughters are bedside and tried to convince their mother to stay. The patient is axox3,she is not intoxicated and understands the risks and consequences of leaving at the time_ cardiac arrest, increasing edema ,shortness of breath from congestive heart failure leading to respiratory arrest Pt still signed AMA
[2018-09-22] MEDS ORDERED: CLOPIDOGREL BISULFATE 75 MG TABLET (FP) ONE (19:37)
--- NOTE | 2018-09-23 10:00 | EKG ---
Test Reason : Blood Pressure : / mmHG Vent. Rate : 101 BPM Atrial Rate : 101 BPM P-R Int : 208 ms QRS Dur : 124 ms QT Int : 450 ms P-R-T Axes : 055 117 010 degrees QTc Int : 583 ms SINUS TACHYCARDIA SEPTAL INFARCT , AGE UNDETERMINED POSSIBLE LATERAL INFARCT , AGE UNDETERMINED ABNORMAL ECG WHEN COMPARED WITH ECG OF 27-NOV-2017 00:43, ABERRANT CONDUCTION IS NO LONGER PRESENT QT HAS LENGTHENED Confirmed by LUH CHAMBERS, MICH ([id number]) on 09/23/2018 10:00:36 AM Referred By: Confirmed By:MICH ARVIZU MD
== END 2018-09-22 20:22 | disposition left against medical advice (07) ==
LOC: JER 17:05
PROC: 3E033NZ Introduction of Analgesics, Hypnotics, Sedatives into Peripheral Vein, Percutaneous Approach (ICD-10-PCS; principal; 2018-09-22)
PROC: 3E033GC Introduction of Other Therapeutic Substance into Peripheral Vein, Percutaneous Approach (ICD-10-PCS; 2018-09-22)
DX: I25.10 Atherosclerotic heart disease of native coronary artery without angina pectoris (principal); I11.0 Hypertensive heart disease with heart failure; I50.22 Chronic systolic (congestive) heart failure; Z95.1 Presence of aortocoronary bypass graft; Z95.5 Presence of coronary angioplasty implant and graft; I48.91 Unspecified atrial fibrillation; R60.1 Generalized edema; Z79.01 Long term (current) use of anticoagulants; E11.9 Type 2 diabetes mellitus without complications; Z79.84 Long term (current) use of oral hypoglycemic drugs; E03.9 Hypothyroidism, unspecified; Z95.810 Presence of automatic (implantable) cardiac defibrillator; J44.9 Chronic obstructive pulmonary disease, unspecified; Z91.14 Patient's other noncompliance with medication regimen
CPT/HCPCS: 36415; 71045-TC-FY; 80053; 81003; 82550; 82553; 82962; 83880; 84439; 84443; 84484; 85025; 87086; 93005; 93010; 96374; 96375; 99283-25; J0131

== ENCOUNTER 2018-09-24 15:54 | Inpatient (IN) | payer OTHER, BC ==
[2018-09-24] MEDS ORDERED: FUROSEMIDE 40 MG/4 ML INJECTABLE VIAL IVPUSH ONE ×2 (16:14→19:49)
[2018-09-24] MEDS ORDERED: ACETAMINOPHEN 1000 MG/100 ML VIAL (NON FORMULARY) IVPB ONE (16:14)
--- NOTE | 2018-09-24 16:14 | PDOC ---
History of Present Illness - General Chief Complaint: Pain, Acute Stated Complaint: PAIN Time Seen by Provider: 09/24/18 16:09 - History of Present Illness Initial Comments: 09/24/18 17:14 The patient is a 63 year old female with a history of HTN, HLD, DM, CAD, STEMI, CHF, Pulmonary HTN who presents for evaluation of body aches and shortness of breath. The patient reports a several day history and worsening whole body pains and shortness of breath. She presented to the ED 2 days ago for similar symptoms and was determined to be in an acute CHF exacerbation at that time. She was noted to have elevated trops as well, however the patient signed out AMA at that time stating that she wished to try her home medications which she had not been taking. Since than she reports continued worsening symptoms prompting her presentation to the ED for further evaluation. She otherwise denies fevers, chills, chest pain, nausea, vomiting, abdominal pain, or changes with urination or bowel movements. Past History - Past Medical History Allergies/Adverse Reactions: Allergies Allergy/AdvReac Type Severity Reaction Status Date / Time aspirin Allergy Mild Rash Verified 09/24/18 16:07 banana Allergy Hives Verified 09/24/18 16:07 tomato Allergy Verified 09/24/18 16:07 Home Medications: Ambulatory Orders Clopidogrel Bisulfate [Plavix -] 75 mg PO DAILY #30 tablet 08/02/17 Levothyroxine [Synthroid -] 75 mcg PO DAILY@0700 30 Days #30 tablet 08/02/17 Sacubitril/Valsartan [Entresto 24 mg-26 mg Tablet] 1 tab PO BID #60 tablet 08/14 Metoprolol Succinate 100 mg PO DAILY 11/27/17 Furosemide [Lasix] 80 mg PO DAILY 11/28/17 Spironolactone [Aldactone -] 25 mg PO DAILY 09/22/18 Metoprolol Succinate [Toprol Xl] 100 mg PO DAILY 09/24/18 Anemia: No Asthma: Yes Cancer: No Cardiac Disorders: Yes (Stents, PM/Defib, STEMI, SYSTOLIC CHF,PULM HTN) CVA: No COPD: No CHF: Yes Dementia: No Diabetes: Yes GI Disorders: Yes Disorders: No HTN: Yes Hypercholesterolemia: Yes Kidney Stones: Yes Liver Disease: Yes Psychiatric Problems: Yes (depression.) Seizures: No Thyroid Disease: Yes (Hypo) - Surgical History Abdominal Surgery: Yes (hx of peg tube.) Appendectomy: No Cardiac Surgery: Yes (bypass,stent x2, CABG 2003, ICD/Pacer 12/02) Cholecystectomy: Yes (04/2016) Lung Surgery: (cabg 2003) Neurologic Surgery: No Orthopedic Surgery: Yes (Right THR) - Immunization History Immunization Up to Date: Yes - Suicide/Smoking/Psychosocial Hx Smoking Status: No Smoking History: Current every day smoker Have you smoked in the past 12 months: Yes Number of Cigarettes Smoked Daily: 20 'Breaking Loose' booklet given: 11/27/17 Hx Alcohol Use: No Drug/Substance Use Hx: No Substance Use Type: None Hx Substance Use Treatment: No Review of Systems - Review of Systems Comments:: 09/24/18 17:20 Constitutional: Whole body aches. No fevers, chills, fatigue, HEENT: No Rhinorrhea, nasal congestion, visual changes Cardiovascular: Worsening swelling in the lower extremities. No chest pain, syncope, palpitations, lightheadedness Respiratory: SOB. No Cough, Hemoptysis, Gastrointestinal: No Abdominal pain, Nausea, Vomiting, Constipation, Diarrhea, Melena Genitourinary: No Dysuria, Frequency, Urgency, Hesitancy, Hematuria, Flank pain Musculoskeletal: No Myalgia, arthralgia Skin: No rashes, itching, bruising, pallor Neurologic: No Headache, Dizziness, Numbness, Weakness, or Tingling Psychiatric: No Hallucinations. No SI or HI *Physical Exam - Physical Exam Comments: 09/24/18 17:22 General Appearance: Nourished. In Mild Apparent Distress HEENT: No Pharyngeal Erythema, Tonsillar Exudate, Tonsillar Erythema Neck: No Cervical Lymphadenopathy Respiratory/Chest: Normal Breath Sounds. Bibasilar rales noted on exam. No Crackles, Rhonchi, Wheezing Cardiovascular: Regular Rhythm, Regular Rate. JVD noted on exam. 3/6 systolic murmur. No Gallops, Rubs Gastrointestinal/Abdominal: Normal Bowel Sounds, Soft. No Guarding, Rebound, Tenderness Musculoskeletal: No CVA Tenderness Extremity: 4+ pitting edema to the lower extremities extending up to the abdomen with 1+ pitting edema to the abdomen. Normal Capillary Refill Integumentary: Normal Color, Dry, Warm Neurologic: Fully Oriented, Alert, Normal Mood/Affect, Normal Response, ED Treatment Course - LABORATORY CBC & Chemistry Diagram: 09/24/18 16:48 09/24/18 16:17 Medical Decision Making - Medical Decision Making 09/24/18 17:24 The patient is a 63 year old female with a history of HTN, HLD, DM, CAD, STEMI, CHF, Pulmonary HTN who presents for evaluation of body aches and shortness of breath. Differential includes but is not limited to: ACS, CHF, Fluid overload, Infectious, Metabolic Derangement. Given the patient's history and physical exam, it is likely the patient's symptoms are due to fluid overload from an acute CHF exacerbation. However, we will obtain a cbc, cmp, troponin, bnp, ekg , chest plain film, ua to evaluate further. We will treat with tylenol and lasix and continue to monitor and reassess while here in the ED. The patient will likely require admission for further management and monitoring. 09/24/18 21:41 CBC is unremarkable. CMP is unremarkable. Troponin is elevated to 0.27. BNP is 7000s. Chest plain film demonstrates pulmonary congestion. The patient will require admission for further management of an acute CHF exacerbation. We discussed the case with the admitting team who accepted the patient for admission. *DC/Admit/Observation/Transfer Diagnosis at time of Disposition: CHF exacerbation Qualifiers: Heart failure type: unspecified Qualified Code(s): I50.9 - Heart failure, unspecified - Discharge Dispostion Condition at time of disposition: Stable Decision to Admit order: Yes - Referrals - Patient Instructions - Post Discharge Activity
[2018-09-24] MEDS ORDERED: FUROSEMIDE 40 MG/4 ML INJECTABLE VIAL ONE ×2 (16:18→20:15)
[2018-09-24] MEDS ORDERED: ACETAMINOPHEN INJECTION 100 ML IVPB ONE (16:18)
[2018-09-24 17:08] LABS: BASO % 0.4 % (0-2.0); HEMATOCRIT 37.2 % (32.4-45.2); HEMOGLOBIN 11.8 GM/dL (10.7-15.3); LYMPH % 15.2 % (8-40); MCH 28.4 pg (25.7-33.7); MCHC 31.7 g/dl (32.0-36.0); MEAN CELL VOLUME 89.6 fl (80-96); MEAN PLT VOLUME 8.4 fl (7.5-11.1); MONO % 15.7 % (3.8-10.2); NEUT % 68.7 % (42.8-82.8); PLATELET COUNT 239 K/MM3 (134-434); RBC 4.15 M/mm3 (3.60-5.2); RDW 16.2 % (11.6-15.6); WHITE BLOOD COUNT 5.8 K/mm3 (4.0-10.0)
[2018-09-24 17:25] LABS: EPI CELLS 3.8 /HPF (0-5/HPF); PH,URINE 5.5 (5.0-8.0); URINE APPEARANCE CLEAR; URINE BILIRUBIN 2+ (NEGATIVE); URINE CASTS 34 /lpf (0-8); URINE COLOR DK YELLOW; URINE GLUCOSE (UA) NEGATIVE (NEGATIVE); URINE KETONE TRACE (NEGATIVE); URINE LEUK ESTERASE TRACE (NEGATIVE); URINE NITRITE NEGATIVE (NEGATIVE); URINE PROTEIN 1+ (NEGATIVE); URINE RBC 5 /hpf (0-4); URINE WBC 2 /hpf (0-5)
[2018-09-24 17:54] LABS: ALBUMIN 3.6 g/dl (3.4-5.0); ALK PHOS 98 U/L (45-117); ANION GAP 8 MMOL/L (8-16); BILIRUBIN,TOTAL 2.1 mg/dL (0.2-1); BLOOD UREA NITROGEN 22 mg/dL (7-18); CALCIUM 9.5 mg/dL (8.5-10.1); CHLORIDE 100 mmol/L (98-107); CO2 29 mmol/L (21-32); CREATININE 1.1 mg/dL (0.55-1.3); GLUCOSE,RANDOM 62 mg/dL (74-106); N-TERMINAL BNP 7632.3 pg/ml (5-125); SGPT/ALT 37 U/L (13-61); SODIUM 137 mmol/L (136-145); TOT PROT 7.2 g/dl (6.4-8.2)
[2018-09-24 17:55] LABS: SGOT/AST 63 U/L (15-37)
--- NOTE | 2018-09-24 18:38 | PDOC ---
Documentation entered by Giselle Huerta SCRIBE, acting as scribe for Anjali Higginbotham MD. Anjali Higginbotham MD: This documentation has been prepared by the Bradley hough Amanda, SCRIBE, under my direction and personally reviewed by me in its entirety. I confirm that the documentation accurately reflects all work, treatment, procedures, and medical decision making performed by me. Attending Attestation - Resident Resident Name: Lukas Fulton - HPI HPI: 09/24/18 16:43 The patient is a 63 year old female, with a significant past medical history of CHF (25% EF, severely dilated LV, global hypokinesis; 07/2017 echo), NIDDM, HTN , hypothyroidism, CAD (2x [place], s/p CABG, s/p 2x stents), AICD, afib, and COPD who presents to the emergency department with diffuse body aches and increased SOB. The patient denies chest pain, headache and dizziness. The patient denies fever , chills, nausea, vomit, diarrhea and constipation. The patient denies dysuria, frequency, urgency and hematuria. Allergies: aspirin, banana, tomato Past surgical history: CABG - Physicial Exam PE: 09/24/18 16:44 GENERAL: Awake, alert, and fully oriented, in no acute distress HEAD: No signs of trauma EYES: PERRLA, EOMI, sclera anicteric, conjunctiva clear ENT: Auricles normal inspection, hearing grossly normal, nares patent, oropharynx clear without exudates. Moist mucosa NECK: Normal ROM, supple, no lymphadenopathy, JVD, or masses LUNGS: (+) mildly tachypneic. speaking complete sentences. Breath sounds equal, clear to auscultation bilaterally. No wheezes, and no crackles HEART: (+) tachycardic rate. Regular rhythm, normal S1 and S2, no murmurs, rubs or gallops ABDOMEN: (+) mild diffuse abdominal tenderness. Soft, normoactive bowel sounds. No guarding, no rebound. No masses EXTREMITIES: (+) bilateral lower extremity edema extending up to mid abdomen. Normal range of motion, No clubbing or cyanosis. No cords, erythema, or tenderness MUSCULOSKELETAL: (+) diffuse tenderness to bilateral lower extremities NEUROLOGICAL: Cranial nerves II through XII grossly intact. Normal speech, SKIN: Warm, Dry, normal turgor, no rashes or lesions noted. - Medical Decision Making 09/24/18 18:19 Pt presents to the ED complaining of worsening shortness of breath and edema after leaving AMA two days ago. PAtient is tachypneic with severe edema and JVD. Labs indicate worsening CHF. Will admit to medicine for CHF exacerbation.
[2018-09-24 19:14] LABS: URINE BACTERIA 2.7 /hpf (NEGATIVE)
--- NOTE | 2018-09-24 19:59 | HP ---
CHIEF COMPLAINT: body aches x 1 week PCP: HISTORY OF PRESENT ILLNESS: 63 y/o F with hx HTN, HLD, DM, CAD, hx STEMI with bypass, stent x 2, CABG 2003, ICD/pacer, [place] 2003, who presents to the ED c/o body aches over the past week. As per pt, over the past month she has had body aches, however they have acutely worsened this week. States that she has severe pain in her lower extremities and abdomen in particular, feeling as if there is increased pressure in these regions. Denies SOB, however on exam, with mildly labored breathing while conversing. Sleeps on 6 pillows a night, and uses 6L 02 "when she is at home." States that she only uses her lasix when she is at home. Today , she did not use it (lasix 80) because she was at the dentist. During this time , pt still actively smokes a few cigarettes a day. Denies any other inciting fx. No recent illnesses. Denies MOREAU, fever, chills, SOB, chest pain or pressure, or changes in urinary or bowel function. Of note, pt was admitted 2 days ago for a CHF exacerbation, however decided to leave AMA since she wanted to just take her meds at home. At baseline, she ambulates using a walker. Her last ECHO in the system is from 2018 shows EF 25% , decreased LV systolic fnc, pacemaker, and LA and RA mod dilation. mod to severe MR. Mod pulm valv regurg. regional wall motion abnormalities can't be r/ o. Cardio is Dr. Cage. ER course was notable for: (1) IV tylenol (2) lasix 40mg IVP x 1 (3) Recent Travel: denies PAST MEDICAL HISTORY: as above PAST SURGICAL HISTORY: as above Social History: Smokin cigs/day x 25 yrs Alcohol: denies Drugs: denies Family History: denies Allergies aspirin Allergy (Mild, Verified 09/24/18 16:07) Rash banana Allergy (Verified 09/24/18 16:07) Hives tomato Allergy (Verified 09/24/18 16:07) HOME MEDICATIONS: Home Medications Medication Instructions Recorded Clopidogrel Bisulfate [Plavix -] 75 mg PO DAILY #30 tablet 08/02/17 Levothyroxine [Synthroid -] 75 mcg PO DAILY@0700 30 Days #30 03/15/18 tablet Sacubitril/Valsartan [Entresto 24 1 tab PO BID #60 tablet 08/14/17 mg-26 mg Tablet] Metoprolol Succinate 100 mg PO DAILY 11/27/17 Furosemide [Lasix] 80 mg PO DAILY 11/28/17 Spironolactone [Aldactone -] 25 mg PO DAILY 09/22/18 Metoprolol Succinate [Toprol Xl] 100 mg PO DAILY 09/24/18 meds need to be verified with pharmacy pt does not know the dosages or names of all meds REVIEW OF SYSTEMS CONSTITUTIONAL: +body aches Absent: fever, chills, diaphoresis, generalized weakness, malaise, loss of appetite, weight change HEENT: Absent: rhinorrhea, nasal congestion, throat pain, throat swelling, difficulty swallowing, mouth swelling, ear pain, eye pain, visual changes CARDIOVASCULAR: Absent: chest pain, syncope, palpitations, irregular heart rate, lightheadedness , peripheral edema RESPIRATORY: +SOB Absent: cough, shortness of breath, dyspnea with exertion, orthopnea, wheezing, stridor, hemoptysis GASTROINTESTINAL: +abdom distension Absent: abdominal pain, abdominal distension, nausea, vomiting, diarrhea, constipation, melena, hematochezia GENITOURINARY: Absent: dysuria, frequency, urgency, hesitancy, hematuria, flank pain, genital pain MUSCULOSKELETAL: Absent: myalgia, arthralgia, joint swelling, back pain, neck pain SKIN: Absent: rash, itching, pallor HEMATOLOGIC/IMMUNOLOGIC: Absent: easy bleeding, easy bruising, lymphadenopathy, frequent infections ENDOCRINE: Absent: unexplained weight gain, unexplained weight loss, heat intolerance, cold intolerance NEUROLOGIC: Absent: headache, focal weakness or paresthesias, dizziness, unsteady gait, seizure, mental status changes, bladder or bowel incontinence PSYCHIATRIC: Absent: anxiety, depression, suicidal or homicidal ideation, hallucinations. PHYSICAL EXAMINATION Vital Signs - 24 hr 09/24/18 09/24/18 16:36 18:06 Temperature 97.3 F L Pulse Rate 95 H Pulse Rate [ 90 Left Apical] Respiratory 20 16 Rate Blood Pressure 103/85 Blood Pressure 133/89 [Left Arm] O2 Sat by Pulse 94 L 100 Oximetry (%) GENERAL: +mildly labored breathing . on 5L 02 sat 95 HEAD: Normal with no signs of trauma. EYES: Pupils equal, round and reactive to light, extraocular movements intact, sclera anicteric, conjunctiva clear. +periorbital edema EARS, NOSE, THROAT: Ears normal, nares patent, oropharynx clear without exudates. Moist mucous membranes. NECK: Normal range of motion, supple LUNGS: +mild bibasilar crackles HEART: +systolic murmur - apprec apex. S1, S2 RRR ABDOMEN: obese, tender. distended LOWER EXTREMITIES: 2+ pt pulses, warm, well-perfused. No calf tenderness. 3+ pitting edema b/l NEUROLOGICAL: Cranial nerves II-XII intact. sensation intact. PSYCHIATRIC: Cooperative. Good eye contact. SKIN: Warm, dry, normal turgor Laboratory Results 09/24/18 09/24/18 09/24/18 16:17 16:17 16:48 WBC 5.8 RBC 4.15 Hgb 11.8 Hct 37.2 MCV 89.6 MCH 28.4 MCHC 31.7 L RDW 16.2 H Plt Count 239 MPV 8.4 Absolute Neuts (auto) 4.0 Neutrophils % 68.7 Lymphocytes % 15.2 Monocytes % 15.7 H Eosinophils % 0.0 Basophils % 0.4 Nucleated RBC % 0 Sodium 137 Potassium 4.0 Chloride 100 Carbon Dioxide 29 Anion Gap 8 BUN 22 H Creatinine 1.1 Creat Clearance w eGFR 49.85 Random Glucose 62 L Calcium 9.5 Total Bilirubin 2.1 H AST 63 H ALT 37 Alkaline Phosphatase 98 Creatine Kinase 424 H Creatine Kinase Index 2.1 CK-MB (CK-2) 9.2 H Troponin I 0.27 H B-Natriuretic Peptide 7632.3 H Total Protein 7.2 Albumin 3.6 Urine Color Dk yellow Urine Appearance Clear Urine pH 5.5 Ur Specific [place] 1.023 Urine Protein 1+ H Urine Glucose (UA) Negative Urine Ketones Trace H Urine Blood Negative Urine Nitrite Negative Urine Bilirubin 2+ H Urine Urobilinogen 1.0 Ur Leukocyte Esterase Trace Urine WBC (Auto) 2 Urine RBC (Auto) 5 Urine Casts (Auto) 34 U Pathogenic Cast Auto No Result Required. U Epithel Cells (Auto) 3.8 Urine Bacteria (Auto) 2.7 EKG: NSR, R axis dev, rate 96bpm, ID 202ms, qtc 490ms. without acute st-t wave changes CXR:cardiomegaly, congestive changes, possible infiltrate L base, effusion. blunting L costophrenic angle. ASSESSMENT/PLAN: 63 y/o F with hx HTN, HLD, DM, CAD, hx STEMI with bypass, stent x 2, CABG 2003, ICD/pacer, [place] 2003, who presents to the ED c/o body aches over the past week. #acute on chronic systolic CHF exacerbation -s/p lasix 40 IVP x1 in ED. will additionally diurese using lasix 60 IVP x 1. close monitoring of BP, hemodynamics after -c/w lasix 40 mg IVP qd for now. can adjust in AM based on I/O -c/w aldactone, entresto -follow I/O closely. if not diuresing accordingly, will look for other source of SOB, vol -f/u ECHO. last in system 2018 -f/u AM CXR -daily wts -na control 2g #LE edema -f/u stat duplex to r/o dvt. though likely 2/2 chf #abdom distension -f/u stat abd sono. though likely 2/2 chf #tropinemia likely 2/2 demand from CHF exac -cont to trend. initial 0.27 #HTN-controlled -holding metoprolol for now to avoid hypotension -can restart in AM if normotensive. #DM -ISS, BGM ACHS -f/u a1c #CAD, stent x 2 -c/w plavix #hypothyroid -c/w synthroid #F/E/N no IVF at this time- CHF cont to follow lytes na controlled/diabetic diet #PPX DVT: SCD's #Dispo admit to tele Visit type - Emergency Visit Emergency Visit: Yes ED Registration Date: 09/24/18 Care time: The patient presented to the Emergency Department on the above date and was hospitalized for further evaluation of their emergent condition. - New Patient This patient is new to me today: Yes Date on this admission: 09/24/18 - Critical Care Critical Care patient: No
--- NOTE | 2018-09-24 20:24 | PN ---
Teaching Attending Note Name of Resident: Anabela eLvine ATTENDING PHYSICIAN STATEMENT I saw and evaluated the patient. I reviewed the resident's note and discussed the case with the resident. I agree with the resident's findings and plan as documented. SUBJECTIVE: Patient is a 63 year old woman with PMH of HTN, HLD, Tobacco use, untreated NIDDM, CAD, STEMI with bypass, stent x 2, CABG 2003, ICD/pacer, [place] 2003, and CHF with EF of 25% who presents to the ER complaining of body aches over the past week. Over the past month she has had body aches, however they have acutely worsened this week. States that she has severe pain in her lower extremities and abdomen in particular, feeling as if there is increased pressure in these regions. Denies SOB, however on exam, with mildly labored breathing while conversing. Sleeps on 6 pillows a night, and uses 6L 02 "when she is at home." States that she only uses her lasix when she is at home but missed today's dose because of a visit to the dentist. No recent illnesses. Denies headache, fever, chills, SOB , chest pain or pressure, or changes in urinary or bowel function. She was admitted 2 days ago for CHF exacerbation, but left AMA since she wanted to " just take her meds at home". She ambulates with and her track oiler is Dr. Cage. OBJECTIVE: Alert Vital Signs Period Temp Pulse Resp BP Sys/Santoro Pulse Ox Last 24 Hr 97.3 F 90-95 16-20 103-133/85-89 94-100 HEENT: No Jaundice, eye redness or discharge, PERRLA, EOMI. Normocephalic, atraumatic. External ears are normal and hearing is grossly intact. No nasal discharge. Neck: Supple, nontender. No palpable adenopathy or thyromegaly. No JVD Chest: Good effort. Clear to auscultation and percussion. Heart: Regular. No S3, rub or murmur Abdomen: Distended, abdominal wall edema, soft, and tender in the periumblical area. No HSM. No rebound or guarding. Normal bowel sounds. Ext: Peripheral pulses intact. Leg edema. Skin: Warm and dry. No petechiae, rash or ecchymosis. Neuro: Alert. Oriented x3. CN 2-12 grossly intact. Sensation grossly intact in all four extremities and DTR are symmetric. Psych: Appropriate mood and affect. Good insight. Current Medications Generic Name Dose Route Start Last Admin Trade Name [place] PRN Reason Stop Dose Admin Clopidogrel Bisulfate 75 mg 09/25/18 10:00 Plavix - PO DAILY [facility] Furosemide 40 mg 09/25/18 10:00 Lasix Injection - IVPUSH DAILY [facility] Insulin Aspart 1 vial 09/24/18 22:00 Novolog Vial Sliding Scale - SQ ACHS [facility] Protocol Levothyroxine Sodium 75 mcg 09/25/18 07:00 Synthroid - PO DAILY@0700 [facility] Sacubitril/Valsartan 1 tab 09/25/18 22:00 Entresto 24 Mg-26 Mg Tablet PO BID [facility] Spironolactone 25 mg 09/25/18 10:00 Aldactone - PO DAILY [facility] Home Medications Medication Instructions Recorded Clopidogrel Bisulfate [Plavix -] 75 mg PO DAILY #30 tablet 08/02/17 Levothyroxine [Synthroid -] 75 mcg PO DAILY@0700 30 Days #30 08/02/17 tablet Sacubitril/Valsartan [Entresto 24 1 tab PO BID #60 tablet 08/14/17 mg-26 mg Tablet] Metoprolol Succinate 100 mg PO DAILY 11/27/17 Furosemide [Lasix] 80 mg PO DAILY 11/28/17 Spironolactone [Aldactone -] 25 mg PO DAILY 09/22/18 Metoprolol Succinate [Toprol Xl] 100 mg PO DAILY 09/24/18 Abnormal Lab Results 09/24/18 09/24/18 09/24/18 16:17 16:17 16:48 MCHC 31.7 L RDW 16.2 H Monocytes % 15.7 H BUN 22 H Random Glucose 62 L Total Bilirubin 2.1 H AST 63 H Creatine Kinase 424 H CK-MB (CK-2) 9.2 H Troponin I 0.27 H B-Natriuretic Peptide 7632.3 H Urine Protein 1+ H Urine Ketones Trace H Urine Bilirubin 2+ H ASSESSMENT AND PLAN: 1. Acute exacerbation of chronic systolic CHF - No obvious precipitating factor , though nonadherence to treatment regimen may be a major contributing factor. CXR shows cardiomegaly, pulmonary congestion with possible LLL atelectasis/ infiltrate. No changes of ischemia on EKG. She has chronic recurrent elevation in troponin and bilirubin. Will admit to telemetry, trend troponin to rule out ACS and trend LFTs. Will diurese with escalating doses of IV lasix, monitor urine output, restrict dietary salt intake, get daily standing weight and most important, provide intense patient education/counseling. Will continue oxygen therapy, get leg doppler, abdominal sonogram and if symptoms persist after adequate diuresis, will get a chest CT to evaluate LLL atelectasis/infiltrate. Consult social studies department chair to explore options about enrolling patient in outpatient/home CHF management programs. 2. Diet-controlled NIDDM Will implement sliding scale insulin regimen. Provide comprehensive diabetes care with patient teaching and counseling about the importance of adherence to prescribed diabetes regimen, euglycemia, eye care and foot care. 3. Tobacco Use Counseled on risks associated with tobacco use. We will provide patient all the necessary assistance to facilitate smoking cessation and prescribe Nicotine patch. 4. Hypertension - Restart outpatient antihypertensive drugs when clinically appropriate. Nonpharmacologic measures to control hypertension like weight loss , salt restriction and exercise discussed. 5. DVT prophylaxis - Lovenox 40 mg SQ q 24 hours. 6. Advance directives - Full code
[2018-09-24] MEDS: INSULIN SLIDING SCALE (NOVOLOG) 1 VIAL SQ SCH (22:06)
[2018-09-24] MEDS ORDERED: ACETAMINOPHEN 500 MG TABLET (FP) PO STA (23:22)
[2018-09-24] MEDS ORDERED: ACETAMINOPHEN 325 MG TABLET (FP) ONE (23:23)
[2018-09-25 05:40] LABS: BASO % 0.6 % (0-2.0); HEMATOCRIT 34.2 % (32.4-45.2); LYMPH % 16.4 % (8-40); MCH 28.6 pg (25.7-33.7); MCHC 32.2 g/dl (32.0-36.0); MEAN CELL VOLUME 88.7 fl (80-96); MEAN PLT VOLUME 7.8 fl (7.5-11.1); MONO % 16.6 % (3.8-10.2); NEUT % 66.4 % (42.8-82.8); PLATELET COUNT 222 K/MM3 (134-434); RBC 3.86 M/mm3 (3.60-5.2); WHITE BLOOD COUNT 5.2 K/mm3 (4.0-10.0)
[2018-09-25 06:12] LABS: ALBUMIN 3.4 g/dl (3.4-5.0); MAGNESIUM 1.8 mg/dL (1.8-2.4); PHOSPHOROUS 3.4 mg/dL (2.5-4.9); POTASSIUM 3.4 mmol/L (3.5-5.1); TOT PROT 6.7 g/dl (6.4-8.2)
[2018-09-25] MEDS: LEVOTHYROXINE NA 75 MCG TABLET (FP) PO SCH (07:01)
--- NOTE | 2018-09-25 08:29 | EKG ---
Test Reason : Blood Pressure : / mmHG Vent. Rate : 096 BPM Atrial Rate : 096 BPM P-R Int : 202 ms QRS Dur : 122 ms QT Int : 388 ms P-R-T Axes : 043 113 011 degrees QTc Int : 490 ms NORMAL SINUS RHYTHM RIGHT AXIS DEVIATION ANTERIOR INFARCT (CITED ON OR BEFORE 22-SEP-2018) ABNORMAL ECG WHEN COMPARED WITH ECG OF 22-SEP-2018 17:12, QUESTIONABLE CHANGE IN INITIAL FORCES OF ANTERIOR LEADS QT HAS SHORTENED Confirmed by ROSSY CHAMBERS, RILEY ([id number]) on 09/25/2018 8:28:48 AM Referred By: Confirmed By:RILEY BLAIR MD
[2018-09-25] MEDS: INSULIN SLIDING SCALE (NOVOLOG) 1 VIAL SQ SCH ×4 (08:35→21:03)
[2018-09-25] MEDS ORDERED: diphenhydrAMINE HCL 25 MG CAPSULE (FP) PO ONE ×2 (09:15→09:58)
[2018-09-25] MEDS ORDERED: POTASSIUM CHLORIDE TABS 20 MEQ TABLET.ER (FP) PO ONE ×3 (09:15→09:58)
[2018-09-25] MEDS: FUROSEMIDE 40 MG/4 ML INJECTABLE VIAL IVPUSH SCH (10:27)
[2018-09-25] MEDS: CLOPIDOGREL BISULFATE 75 MG TABLET (FP) PO SCH (10:27)
[2018-09-25] MEDS: SPIRONOLACTONE 25 MG TABLET (FP) PO SCH (10:27)
--- NOTE | 2018-09-25 11:26 | PN ---
Physical Exam: SUBJECTIVE: Patient seen and examined. Pt. endorses generalized body aches. OBJECTIVE: Vital Signs Period Temp Pulse Resp BP Sys/Santoro Pulse Ox Last 24 Hr 97.3 F 90-95 16-22 103-133/59-91 94-100 GENERAL: The patient is awake, alert, and fully oriented, in mild distress. HEAD: Normal with no signs of trauma. EYES: PERRL, sclera anicteric, conjunctiva clear. ENT: Ears normal, nares patent, oropharynx clear without exudates, moist mucous membranes. NECK: Trachea midline, full range of motion, supple. LUNGS: Breath sounds equal, clear to auscultation bilaterally, no wheezes, no crackles, no accessory muscle use. HEART: distant heart sounds, Regular rate and rhythm, S1, S2 without murmur ABDOMEN: Soft, diffuse tenderness to palpation, nondistended, normoactive bowel sounds, anasarca EXTREMITIES: 2+ dorsal pedal pulses, warm, b/l LE edema, well-perfused NEUROLOGICAL: Normal speech, gait not observed. PSYCH: Normal mood, normal affect. SKIN: Warm, dry, anasarca, pruritis in hands Laboratory Results - last 24 hr 09/24/18 09/24/18 09/24/18 16:17 16:17 16:48 WBC 5.8 RBC 4.15 Hgb 11.8 Hct 37.2 MCV 89.6 MCH 28.4 MCHC 31.7 L RDW 16.2 H Plt Count 239 MPV 8.4 Absolute Neuts (auto) 4.0 Neutrophils % 68.7 Lymphocytes % 15.2 Monocytes % 15.7 H Eosinophils % 0.0 Basophils % 0.4 Nucleated RBC % 0 Sodium 137 Potassium 4.0 Chloride 100 Carbon Dioxide 29 Anion Gap 8 BUN 22 H Creatinine 1.1 Creat Clearance w eGFR 49.85 POC Glucometer Random Glucose 62 L Hemoglobin A1c % Calcium 9.5 Phosphorus Magnesium Total Bilirubin 2.1 H AST 63 H ALT 37 Alkaline Phosphatase 98 Creatine Kinase 424 H Creatine Kinase Index 2.1 CK-MB (CK-2) 9.2 H Troponin I 0.27 H B-Natriuretic Peptide 7632.3 H Total Protein 7.2 Albumin 3.6 Urine Color Dk yellow Urine Appearance Clear Urine pH 5.5 Ur Specific [place] 1.023 Urine Protein 1+ H Urine Glucose (UA) Negative Urine Ketones Trace H Urine Blood Negative Urine Nitrite Negative Urine Bilirubin 2+ H Urine Urobilinogen 1.0 Ur Leukocyte Esterase Trace Urine WBC (Auto) 2 Urine RBC (Auto) 5 Urine Casts (Auto) 34 U Pathogenic Cast Auto No Result Required. U Epithel Cells (Auto) 3.8 Urine Bacteria (Auto) 2.7 09/24/18 09/24/18 09/24/18 19:57 22:02 22:35 WBC RBC Hgb Hct MCV MCH MCHC RDW Plt Count MPV Absolute Neuts (auto) Neutrophils % Lymphocytes % Monocytes % Eosinophils % Basophils % Nucleated RBC % Sodium Potassium Chloride Carbon Dioxide Anion Gap BUN Creatinine Creat Clearance w eGFR POC Glucometer 79 Random Glucose Hemoglobin A1c % 5.8 Calcium Phosphorus Magnesium Total Bilirubin AST ALT Alkaline Phosphatase Creatine Kinase Creatine Kinase Index CK-MB (CK-2) Troponin I 0.25 H B-Natriuretic Peptide Total Protein Albumin Urine Color Urine Appearance Urine pH Ur Specific [place] Urine Protein Urine Glucose (UA) Urine Ketones Urine Blood Urine Nitrite Urine Bilirubin Urine Urobilinogen Ur Leukocyte Esterase Urine WBC (Auto) Urine RBC (Auto) Urine Casts (Auto) U Pathogenic Cast Auto U Epithel Cells (Auto) Urine Bacteria (Auto) 09/25/18 09/25/18 09/25/18 05:20 05:20 08:31 WBC 5.2 RBC 3.86 Hgb 11.0 Hct 34.2 MCV 88.7 MCH 28.6 MCHC 32.2 RDW 16.0 H Plt Count 222 MPV 7.8 Absolute Neuts (auto) 3.4 Neutrophils % 66.4 Lymphocytes % 16.4 Monocytes % 16.6 H Eosinophils % 0.0 Basophils % 0.6 Nucleated RBC % 0 Sodium 137 Potassium 3.4 L Chloride 102 Carbon Dioxide 28 Anion Gap 8 BUN 24 H Creatinine 1.1 Creat Clearance w eGFR 49.85 POC Glucometer 67 Random Glucose 60 L Hemoglobin A1c % Calcium 9.0 Phosphorus 3.4 Magnesium 1.8 Total Bilirubin 2.0 H AST 51 H ALT 36 Alkaline Phosphatase 93 Creatine Kinase Creatine Kinase Index CK-MB (CK-2) Troponin I 0.25 H B-Natriuretic Peptide Total Protein 6.7 Albumin 3.4 Urine Color Urine Appearance Urine pH Ur Specific [place] Urine Protein Urine Glucose (UA) Urine Ketones Urine Blood Urine Nitrite Urine Bilirubin Urine Urobilinogen Ur Leukocyte Esterase Urine WBC (Auto) Urine RBC (Auto) Urine Casts (Auto) U Pathogenic Cast Auto U Epithel Cells (Auto) Urine Bacteria (Auto) Active Medications Home Medications Medication Instructions Recorded Clopidogrel Bisulfate [Plavix -] 75 mg PO DAILY #30 tablet 08/02/17 Levothyroxine [Synthroid -] 75 mcg PO DAILY@0700 30 Days #30 08/02/17 tablet Sacubitril/Valsartan [Entresto 24 1 tab PO BID #60 tablet 08/14/17 mg-26 mg Tablet] Metoprolol Succinate 100 mg PO DAILY 11/27/17 Furosemide [Lasix] 80 mg PO DAILY 11/28/17 Spironolactone [Aldactone -] 25 mg PO DAILY 09/22/18 Metoprolol Succinate [Toprol Xl] 100 mg PO DAILY 09/24/18 Current Medications Clopidogrel Bisulfate (Plavix -) 75 mg PO DAILY [facility] Last Admin: 09/25/18 10:27 Dose: 75 mg Furosemide (Lasix Injection -) 40 mg IVPUSH DAILY [facility] Last Admin: 09/25/18 10:27 Dose: 40 mg Insulin Aspart (Novolog Vial Sliding Scale -) 1 vial S[facility]; Protocol Last Admin: 09/25/18 08:35 Dose: Not Given Levothyroxine Sodium (Synthroid -) 75 mcg PO DAILY@0700 [facility] Last Admin: 09/25/18 07:01 Dose: 75 mcg Sacubitril/Valsartan (Entresto 24 Mg-26 Mg Tablet) 1 tab PO BID [facility] Spironolactone (Aldactone -) 25 mg PO DAILY [facility] Last Admin: 09/25/18 10:27 Dose: 25 mg ASSESSMENT/PLAN: Pt. is a 63 y.o. F w/ PMHx. of HTN, HLD, DM, CAD, Hypothyroidism Hx. STEMI with bypass, stent x 2, CABG 2003, ICD/pacer, [place] 2003 admitted for acute on chronic CHF #Acute on chronic sCHF exacerbation Given 100mg total Lasix IVP close monitoring of BP, hemodynamics after c/w lasix 40 mg IVP qd for now c/w aldactone, entresto follow I/O closely, Pt. states she has been urinating very frequently and moderate-large amounts of urine Echo: LV severely dilated, LV systolic function severely reduced, severe MR, LA and RA mod. dilated, severe global hypokinesis Rpt. CXR: LLL opacification, cardiomegaly Daily Weights Anasarca Troponin plateaued 0.27-->0.25-->0.25 BNP: 7,000s Duplex showed no HDS stenosis #HTN-controlled hold metoprolol for now as Pt. is normotensive #DM c/w ISS ACHS c/w BGM ACHS A1c: 5.8% #CAD w/ stent x 2 c/w Plavix #Hypothyroid c/w synthroid #F/E/N no IVF at this time- CHF cont to follow lytes Na controlled/ Diabetic Diet #DVT PPx SCD's #Dispo admit to tele Visit type - Emergency Visit Emergency Visit: Yes ED Registration Date: 09/24/18 Care time: The patient presented to the Emergency Department on the above date and was hospitalized for further evaluation of their emergent condition. - New Patient This patient is new to me today: Yes Date on this admission: 09/25/18 - Critical Care Critical Care patient: No - Discharge Referral Referred to [facility] Med [facility].C[facility] No
--- NOTE | 2018-09-25 11:44 | CON.CARD ---
Consult - History of Present Illness Chief Complaint: sob History of Present Illness: The patient is a 63 year old female, with a significant past medical history of CHF (25% EF, severely dilated LV, global hypokinesis; 07/2017 echo), NIDDM, HTN , hypothyroidism, CAD (2x OR, s/p CABG, s/p 2x stents), AICD, afib, and COPD who presents to the emergency department with diffuse body aches and increased SOB. The patient denies chest pain, headache and dizziness. The patient denies fever , chills, nausea, vomit, diarrhea and constipation. The patient denies dysuria, frequency, urgency and hematuria. 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 Had PEG placed 11/03 after suffering vocal cord damage ( EMS intubation). PEG was subsequently removed. ) Hepatobiliary: Yes: Cirrhosis (cardiac cirrhosis), Cholecystitis (s/p lap choly 05/05) Renal/: Yes: Renal Calculi Psych: Yes: Depression Musculoskeletal: Yes: Chronic low back pain, Osteoarthritis Endocrine: Yes: Hypothyroidism - Past Surgical History Past Surgical History: Yes: AICD, CABG, Cholecystectomy (05/05), Colonoscopy, Joint Replacement (right THR), Stent (X2) - Alcohol/Substance Use Hx Alcohol Use: No History of Substance Use: reports: None - Smoking History Smoking history: Current every day smoker Have you smoked in the past 12 months: Yes Aproximately how many cigarettes per day: 20 - Social History Usual Living Arrangement: Alone ADL: Independent 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 History of Recent Travel: No Home Medications - Allergies Allergies/Adverse Reactions: Allergies Allergy/AdvReac Type Severity Reaction Status Date / Time aspirin Allergy Mild Rash Verified 09/24/18 16:07 banana Allergy Hives Verified 09/24/18 16:07 tomato Allergy Verified 09/24/18 16:07 - Home Medications Home Medications: Ambulatory Orders Clopidogrel Bisulfate [Plavix -] 75 mg PO DAILY #30 tablet 08/02/17 Levothyroxine [Synthroid -] 75 mcg PO DAILY@0700 30 Days #30 tablet 08/02/17 Sacubitril/Valsartan [Entresto 24 mg-26 mg Tablet] 1 tab PO BID #60 tablet 08/14 Metoprolol Succinate 100 mg PO DAILY 11/27/17 Furosemide [Lasix] 80 mg PO DAILY 11/28/17 Spironolactone [Aldactone -] 25 mg PO DAILY 09/22/18 Metoprolol Succinate [Toprol Xl] 100 mg PO DAILY 09/24/18 Family Disease History - Family Disease History Family Disease History: Diabetes: Sister (s/p CABG in her 50s), Heart Disease: Father (had unknown cancer), Mother (lived to ), Sister, [place]: Father Review of Systems - Review of Systems Constitutional: reports: No Symptoms Eyes: reports: No Symptoms HENT: reports: No Symptoms Neck: reports: No Symptoms Cardiovascular: reports: Edema, Shortness of Breath Gastrointestinal: reports: No Symptoms Genitourinary: reports: No Symptoms Breasts: reports: No Symptoms Reported Musculoskeletal: reports: No Symptoms Integumentary: reports: No Symptoms Neurological: reports: No Symptoms Endocrine: reports: No Symptoms Hematology/Lymphatic: reports: No Symptoms Psychiatric: reports: No Symptoms Vital Signs: Vital Signs Temperature 97.3 F L 09/24/18 16:36 Pulse Rate 92 H 09/25/18 06:29 Respiratory Rate 22 H 09/25/18 07:15 Blood Pressure 123/91 09/25/18 06:29 O2 Sat by Pulse Oximetry (%) 100 09/25/18 07:15 Constitutional: Yes: Well Nourished, No Distress, Calm Eyes: Yes: WNL, Conjunctiva Clear, EOM Intact HENT: Yes: WNL, Atraumatic, Normocephalic Neck: Yes: WNL, Supple, Trachea Midline Respiratory: Yes: WNL, Regular, CTA Bilaterally Gastrointestinal: Yes: WNL, Normal Bowel Sounds Renal/: Yes: WNL Cardiovascular: Yes: WNL, Regular Rate and Rhythm Heart Sounds: Yes: S1, S2 Musculoskeletal: Yes: WNL Extremities: Yes: WNL Edema: Yes Integumentary: Yes: WNL Neurological: Yes: WNL, Alert, Oriented ...Motor Strength: WNL Psychiatric: Yes: WNL, Alert, Oriented - Other Data Labs, Other Data: CBC, BMP 09/25/18 05:20 09/25/18 05:20 Troponin, BNP 09/24/18 09/24/18 09/25/18 16:17 22:35 05:20 Troponin I 0.27 H 0.25 H 0.25 H B-Natriuretic Peptide 7632.3 H Troponin, BNP 09/24/18 09/24/18 09/25/18 16:17 22:35 05:20 Troponin I 0.27 H 0.25 H 0.25 H B-Natriuretic Peptide 7632.3 H Laboratory Tests 09/24/18 09/24/18 09/24/18 16:17 16:17 16:48 WBC 5.8 RBC 4.15 Hgb 11.8 Hct 37.2 MCV 89.6 MCH 28.4 MCHC 31.7 L RDW 16.2 H Plt Count 239 MPV 8.4 Absolute Neuts (auto) 4.0 Neutrophils % 68.7 Lymphocytes % 15.2 Monocytes % 15.7 H Eosinophils % 0.0 Basophils % 0.4 Nucleated RBC % 0 Sodium 137 Potassium 4.0 Chloride 100 Carbon Dioxide 29 Anion Gap 8 BUN 22 H Creatinine 1.1 Creat Clearance w eGFR 49.85 POC Glucometer Random Glucose 62 L Hemoglobin A1c % Calcium 9.5 Phosphorus Magnesium Total Bilirubin 2.1 H AST 63 H ALT 37 Alkaline Phosphatase 98 Creatine Kinase 424 H Creatine Kinase Index 2.1 CK-MB (CK-2) 9.2 H Troponin I 0.27 H B-Natriuretic Peptide 7632.3 H Total Protein 7.2 Albumin 3.6 Urine Color Dk yellow Urine Appearance Clear Urine pH 5.5 Ur Specific [place] 1.023 Urine Protein 1+ H Urine Glucose (UA) Negative Urine Ketones Trace H Urine Blood Negative Urine Nitrite Negative Urine Bilirubin 2+ H Urine Urobilinogen 1.0 Ur Leukocyte Esterase Trace Urine WBC (Auto) 2 Urine RBC (Auto) 5 Urine Casts (Auto) 34 U Pathogenic Cast Auto No Result Required. U Epithel Cells (Auto) 3.8 Urine Bacteria (Auto) 2.7 09/24/18 09/24/18 09/24/18 19:57 22:02 22:35 WBC RBC Hgb Hct MCV MCH MCHC RDW Plt Count MPV Absolute Neuts (auto) Neutrophils % Lymphocytes % Monocytes % Eosinophils % Basophils % Nucleated RBC % Sodium Potassium Chloride Carbon Dioxide Anion Gap BUN Creatinine Creat Clearance w eGFR POC Glucometer 79 Random Glucose Hemoglobin A1c % 5.8 Calcium Phosphorus Magnesium Total Bilirubin AST ALT Alkaline Phosphatase Creatine Kinase Creatine Kinase Index CK-MB (CK-2) Troponin I 0.25 H B-Natriuretic Peptide Total Protein Albumin Urine Color Urine Appearance Urine pH Ur Specific [place] Urine Protein Urine Glucose (UA) Urine Ketones Urine Blood Urine Nitrite Urine Bilirubin Urine Urobilinogen Ur Leukocyte Esterase Urine WBC (Auto) Urine RBC (Auto) Urine Casts (Auto) U Pathogenic Cast Auto U Epithel Cells (Auto) Urine Bacteria (Auto) 09/25/18 09/25/18 09/25/18 05:20 05:20 08:31 WBC 5.2 RBC 3.86 Hgb 11.0 Hct 34.2 MCV 88.7 MCH 28.6 MCHC 32.2 RDW 16.0 H Plt Count 222 MPV 7.8 Absolute Neuts (auto) 3.4 Neutrophils % 66.4 Lymphocytes % 16.4 Monocytes % 16.6 H Eosinophils % 0.0 Basophils % 0.6 Nucleated RBC % 0 Sodium 137 Potassium 3.4 L Chloride 102 Carbon Dioxide 28 Anion Gap 8 BUN 24 H Creatinine 1.1 Creat Clearance w eGFR 49.85 POC Glucometer 67 Random Glucose 60 L Hemoglobin A1c % Calcium 9.0 Phosphorus 3.4 Magnesium 1.8 Total Bilirubin 2.0 H AST 51 H ALT 36 Alkaline Phosphatase 93 Creatine Kinase Creatine Kinase Index CK-MB (CK-2) Troponin I 0.25 H B-Natriuretic Peptide Total Protein 6.7 Albumin 3.4 Urine Color Urine Appearance Urine pH Ur Specific [place] Urine Protein Urine Glucose (UA) Urine Ketones Urine Blood Urine Nitrite Urine Bilirubin Urine Urobilinogen Ur Leukocyte Esterase Urine WBC (Auto) Urine RBC (Auto) Urine Casts (Auto) U Pathogenic Cast Auto U Epithel Cells (Auto) Urine Bacteria (Auto) Imaging - Results Chest X-ray: Image Reviewed (i/e) EKG: Image Reviewed (nsr old mi rep abn) Problem List - Problems (1) CHF exacerbation Code(s): I50.9 - HEART FAILURE, UNSPECIFIED Qualifiers: Heart failure type: unspecified Qualified Code(s): I50.9 - Heart failure, unspecified (2) AICD (automatic cardioverter/defibrillator) present Code(s): Z95.810 - PRESENCE OF AUTOMATIC (IMPLANTABLE) CARDIAC DEFIBRILLATOR (3) LIANNA (acute kidney injury) Code(s): N17.9 - ACUTE KIDNEY FAILURE, UNSPECIFIED (4) Acute on chronic systolic and diastolic heart failure, NYHA class 3 Code(s): I50.43 - ACUTE ON CHRONIC COMBINED SYSTOLIC AND DIASTOLIC HRT FAIL (5) Anasarca Code(s): R60.1 - GENERALIZED EDEMA (6) Anxiety and depression Code(s): F41.9 - ANXIETY DISORDER, UNSPECIFIED; F32.9 - MAJOR DEPRESSIVE DISORDER, SINGLE EPISODE, UNSPECIFIED (7) Bacteremia Code(s): R78.81 - BACTEREMIA (8) Chest pain of uncertain etiology Code(s): R07.89 - OTHER CHEST PAIN (9) Chronic abdominal pain Code(s): R10.9 - UNSPECIFIED ABDOMINAL PAIN; G89.29 - OTHER CHRONIC PAIN (10) Diverticulosis Code(s): K57.90 - DVRTCLOS OF INTEST, PART UNSP, W/O PERF OR ABSCESS W/O BLEED (11) Facial swelling Code(s): R22.0 - LOCALIZED SWELLING, MASS AND LUMP, HEAD (12) Hepatopathy Code(s): K76.9 - LIVER DISEASE, UNSPECIFIED (13) Hypokalemia Code(s): E87.6 - HYPOKALEMIA (14) Overweight Code(s): E66.3 - OVERWEIGHT (15) Sepsis Code(s): A41.9 - SEPSIS, UNSPECIFIED ORGANISM (16) Shortness of breath Code(s): R06.02 - SHORTNESS OF BREATH (17) Abdominal pain Code(s): R10.9 - UNSPECIFIED ABDOMINAL PAIN Qualifiers: Abdominal location: lower abdomen, unspecified Qualified Code(s): R10.30 - Lower abdominal pain, unspecified (18) Acute combined systolic and diastolic ACC/AHA stage C congestive heart failure Code(s): I50.41 - ACUTE COMBINED SYSTOLIC AND DIASTOLIC (CONGESTIVE) HRT FAIL (19) Acute on chronic systolic and diastolic heart failure, NYHA class 1 Code(s): I50.43 - ACUTE ON CHRONIC COMBINED SYSTOLIC AND DIASTOLIC HRT FAIL (20) CHF (congestive heart failure) Code(s): I50.9 - HEART FAILURE, UNSPECIFIED (21) Chest pain Code(s): R07.9 - CHEST PAIN, UNSPECIFIED Qualifiers: Chest pain type: unspecified Qualified Code(s): R07.9 - Chest pain, unspecified (22) Chronic systolic congestive heart failure Code(s): I50.22 - CHRONIC SYSTOLIC (CONGESTIVE) HEART FAILURE (23) Cigarette nicotine dependence Code(s): F17.210 - NICOTINE DEPENDENCE, CIGARETTES, UNCOMPLICATED (24) Coronary artery disease Code(s): I25.10 - ATHSCL HEART DISEASE OF [place] CORONARY ARTERY W/O ANG PCTRS (25) Depression Code(s): F32.9 - MAJOR DEPRESSIVE DISORDER, SINGLE EPISODE, UNSPECIFIED (26) Diabetes Code(s): E11.9 - TYPE 2 DIABETES MELLITUS WITHOUT COMPLICATIONS Qualifiers: Diabetes mellitus type: type 2 Diabetes mellitus snf insulin use: with snf use Diabetes mellitus complication status: with unspecified complications Qualified Code(s): E11.8 - Type 2 diabetes mellitus with unspecified complications (27) Dyspepsia Code(s): K30 - FUNCTIONAL DYSPEPSIA (28) Elevated liver function tests Code(s): R94.5 - ABNORMAL RESULTS OF LIVER FUNCTION STUDIES (29) Elevated troponin Code(s): R74.8 - ABNORMAL LEVELS OF OTHER SERUM ENZYMES (30) Fatty liver Code(s): K76.0 - FATTY (CHANGE OF) LIVER, NOT ELSEWHERE CLASSIFIED (31) Hyperbilirubinemia Code(s): E80.6 - OTHER DISORDERS OF BILIRUBIN METABOLISM (32) Hyperlipidemia Code(s): E78.5 - HYPERLIPIDEMIA, UNSPECIFIED (33) Hypertension Code(s): I10 - ESSENTIAL (PRIMARY) HYPERTENSION (34) Hypothyroidism Code(s): E03.9 - HYPOTHYROIDISM, UNSPECIFIED (35) ICD (implantable cardioverter-defibrillator) in place Code(s): Z95.810 - PRESENCE OF AUTOMATIC (IMPLANTABLE) CARDIAC DEFIBRILLATOR (36) Lower extremity edema Code(s): R60.0 - LOCALIZED EDEMA (37) NSVT (nonsustained ventricular tachycardia) Code(s): I47.2 - VENTRICULAR TACHYCARDIA (38) Noncompliance with medication regimen Code(s): Z91.14 - PATIENT'S OTHER NONCOMPLIANCE WITH MEDICATION REGIMEN (39) Peripheral neuropathy Code(s): G62.9 - POLYNEUROPATHY, UNSPECIFIED Qualifiers: Peripheral neuropathy type: polyneuropathy, unspecified Qualified Code(s): G62.9 - Polyneuropathy, unspecified (41) Sleep apnea Code(s): G47.30 - SLEEP APNEA, UNSPECIFIED (42) Sphincter of Oddi dysfunction Code(s): K83.4 - SPASM OF SPHINCTER OF ODDI (43) Status post THR (total hip replacement) Code(s): Z96.649 - PRESENCE OF UNSPECIFIED ARTIFICIAL HIP JOINT (44) Transaminitis Code(s): R74.0 - NONSPEC ELEV OF LEVELS OF TRANSAMNS & LACTIC ACID DEHYDRGNSE (45) Cardiac cirrhosis Code(s): K76.1 - CHRONIC PASSIVE CONGESTION OF LIVER Assessment/Plan 63 year old female, with a significant past medical history of CHF (25% EF, severely dilated LV, global hypokinesis; 07/2017 echo), NIDDM, HTN, hypothyroidism, CAD (2x OR, s/p CABG, s/p 2x stents), AICD, afib, and COPD who presents to the emergency department with diffuse body aches and increased SOB. Imp; decompensated systolic chf Plan telemetry IV lasix dvt plx cont med. rx
--- NOTE | 2018-09-25 12:09 | ECHO ---
Name: MIHIR JAY Exam:Adult Echocardiogram Study Date: 09/25/2018 11:08 AM Age: 63 yrs Reason For Study: CHF Height: 64 in Weight: 168 lb BSA: 1.8 m2 MMode/2D Measurements & Calculations IVSd: 1.1 cm Ao root diam: 2.7 cm LVIDd: 6.6 cm LA dimension: 4.7 cm LVIDs: 6.1 cm LVPWd: 0.89 cm EDV(Teich): 226.0 ml LVOT diam: 2.0 cm ESV(Teich): 185.9 ml LAV (MOD-bp): 84.8 ml Doppler Measurements & Calculations MV E max hernan: 122.0 cm/sec Ao V2 max: 130.3 cm/sec MV A max hernan: 34.9 cm/sec Ao max P.8 mmHg MV E/A: 3.5 MV dec time: 0.14 sec SHARON(V,D): 1.6 cm2 LV V1 max P.9 mmHg MR max hernan: 507.1 cm/sec LV V1 max: 68.4 cm/sec MR max P.1 mmHg TR max hernan: 218.3 cm/sec PA V2 max: 95.0 cm/sec TR max P.1 mmHg PA max P.6 mmHg Med Peak E' Hernan: 2.7 cm/sec PI Vmax: 245.7 cm/sec Med E/e': 44.9 Lat Peak E' Hernan: 4.2 cm/sec Lat E/e': 28.8 Procedure A two-dimensional transthoracic echocardiogram with color flow and Doppler was performed. Left Ventricle The left ventricle is severely dilated. Left ventricular systolic function is severely reduced. There is severe global hypokinesis of the left ventricle. Regional wall motion abnormalities cannot be exclude d due to limited visualization. Right Ventricle The right ventricle is not well visualized. There is a pacemaker lead in the right ventricle. Atria The left atrium is moderately dilated. The right atrium is moderately dilated. Mitral Valve There is mild mitral valve thickening. There is no mitral valve stenosis. There is severe mitral regurgitation. Tricuspid Valve There is mild tricuspid valve thickening. There is no tricuspid stenosis. There is severe tricuspid regurgitation. Right ventricular systolic pressure is normal. Aortic Valve The aortic valve is normal in structure and function. No hemodynamically significant valvular aortic stenosis. No aortic regurgitation is present. Pulmonic Valve The pulmonic valve is not well visualized. There is no pulmonic valvular stenosis. Moderate pulmonic valvular regurgitation. Great Vessels The aortic root is normal size. Pericardium/Pleura There is no pericardial effusion. Interpretation Summary The left ventricle is severely dilated. Left ventricular systolic function is severely reduced. There is severe mitral regurgitation. The left atrium is moderately dilated. The right atrium is moderately dilated. There is severe tricuspid regurgitation. Right ventricular systolic pressure is normal. There is a pacemaker lead in the right ventricle. There is severe global hypokinesis of the left ventricle. Regional wall motion abnormalities cannot be excluded due to limited visualization. MD Oneil العلي 09/25/2018 12:08 PM
[2018-09-25 15:00] VITALS: BMI 34.6
--- NOTE | 2018-09-25 17:02 | PN ---
Teaching Attending Note Name of Resident: Onesimo Simmons ATTENDING PHYSICIAN STATEMENT I saw and evaluated the patient. I reviewed the resident's note and discussed the case with the resident. I agree with the resident's findings and plan as documented. SUBJECTIVE: Dyspnea improving. No cough/sputum/fever. OBJECTIVE: Afebrile, Hemodynamically Stable. On 2L O2 Last Vital Signs Temp Pulse Resp BP Pulse Ox 97.9 F 101 H 20 148/82 99 09/25/18 14:53 09/25/18 14:53 09/25/18 14:53 09/25/18 14:53 09/25/18 15:18 HEENT - Atraumatic, normocephalic Heart - S1, S2, RRR Lungs - decreased air entry at bases Abdomen -Soft, mild distension, mild generalized tenderness. Bowel Sounds normal. Extremities - bilateral LE edema. Laboratory Results - last 24 hr 09/24/18 09/24/18 09/24/18 16:17 16:17 16:48 WBC 5.8 RBC 4.15 Hgb 11.8 Hct 37.2 MCV 89.6 MCH 28.4 MCHC 31.7 L RDW 16.2 H Plt Count 239 MPV 8.4 Absolute Neuts (auto) 4.0 Neutrophils % 68.7 Lymphocytes % 15.2 Monocytes % 15.7 H Eosinophils % 0.0 Basophils % 0.4 Nucleated RBC % 0 Sodium 137 Potassium 4.0 Chloride 100 Carbon Dioxide 29 Anion Gap 8 BUN 22 H Creatinine 1.1 Creat Clearance w eGFR 49.85 POC Glucometer Random Glucose 62 L Hemoglobin A1c % Calcium 9.5 Phosphorus Magnesium Total Bilirubin 2.1 H AST 63 H ALT 37 Alkaline Phosphatase 98 Creatine Kinase 424 H Creatine Kinase Index 2.1 CK-MB (CK-2) 9.2 H Troponin I 0.27 H B-Natriuretic Peptide 7632.3 H Total Protein 7.2 Albumin 3.6 Urine Color Dk yellow Urine Appearance Clear Urine pH 5.5 Ur Specific [place] 1.023 Urine Protein 1+ H Urine Glucose (UA) Negative Urine Ketones Trace H Urine Blood Negative Urine Nitrite Negative Urine Bilirubin 2+ H Urine Urobilinogen 1.0 Ur Leukocyte Esterase Trace Urine WBC (Auto) 2 Urine RBC (Auto) 5 Urine Casts (Auto) 34 U Pathogenic Cast Auto No Result Required. U Epithel Cells (Auto) 3.8 Urine Bacteria (Auto) 2.7 09/24/18 09/24/18 09/24/18 19:57 22:02 22:35 WBC RBC Hgb Hct MCV MCH MCHC RDW Plt Count MPV Absolute Neuts (auto) Neutrophils % Lymphocytes % Monocytes % Eosinophils % Basophils % Nucleated RBC % Sodium Potassium Chloride Carbon Dioxide Anion Gap BUN Creatinine Creat Clearance w eGFR POC Glucometer 79 Random Glucose Hemoglobin A1c % 5.8 Calcium Phosphorus Magnesium Total Bilirubin AST ALT Alkaline Phosphatase Creatine Kinase Creatine Kinase Index CK-MB (CK-2) Troponin I 0.25 H B-Natriuretic Peptide Total Protein Albumin Urine Color Urine Appearance Urine pH Ur Specific [place] Urine Protein Urine Glucose (UA) Urine Ketones Urine Blood Urine Nitrite Urine Bilirubin Urine Urobilinogen Ur Leukocyte Esterase Urine WBC (Auto) Urine RBC (Auto) Urine Casts (Auto) U Pathogenic Cast Auto U Epithel Cells (Auto) Urine Bacteria (Auto) 09/25/18 09/25/18 09/25/18 05:20 05:20 08:31 WBC 5.2 RBC 3.86 Hgb 11.0 Hct 34.2 MCV 88.7 MCH 28.6 MCHC 32.2 RDW 16.0 H Plt Count 222 MPV 7.8 Absolute Neuts (auto) 3.4 Neutrophils % 66.4 Lymphocytes % 16.4 Monocytes % 16.6 H Eosinophils % 0.0 Basophils % 0.6 Nucleated RBC % 0 Sodium 137 Potassium 3.4 L Chloride 102 Carbon Dioxide 28 Anion Gap 8 BUN 24 H Creatinine 1.1 Creat Clearance w eGFR 49.85 POC Glucometer 67 Random Glucose 60 L Hemoglobin A1c % Calcium 9.0 Phosphorus 3.4 Magnesium 1.8 Total Bilirubin 2.0 H AST 51 H ALT 36 Alkaline Phosphatase 93 Creatine Kinase Creatine Kinase Index CK-MB (CK-2) Troponin I 0.25 H B-Natriuretic Peptide Total Protein 6.7 Albumin 3.4 Urine Color Urine Appearance Urine pH Ur Specific [place] Urine Protein Urine Glucose (UA) Urine Ketones Urine Blood Urine Nitrite Urine Bilirubin Urine Urobilinogen Ur Leukocyte Esterase Urine WBC (Auto) Urine RBC (Auto) Urine Casts (Auto) U Pathogenic Cast Auto U Epithel Cells (Auto) Urine Bacteria (Auto) 09/25/18 13:50 WBC RBC Hgb Hct MCV MCH MCHC RDW Plt Count MPV Absolute Neuts (auto) Neutrophils % Lymphocytes % Monocytes % Eosinophils % Basophils % Nucleated RBC % Sodium Potassium Chloride Carbon Dioxide Anion Gap BUN Creatinine Creat Clearance w eGFR POC Glucometer 70 Random Glucose Hemoglobin A1c % Calcium Phosphorus Magnesium Total Bilirubin AST ALT Alkaline Phosphatase Creatine Kinase Creatine Kinase Index CK-MB (CK-2) Troponin I B-Natriuretic Peptide Total Protein Albumin Urine Color Urine Appearance Urine pH Ur Specific [place] Urine Protein Urine Glucose (UA) Urine Ketones Urine Blood Urine Nitrite Urine Bilirubin Urine Urobilinogen Ur Leukocyte Esterase Urine WBC (Auto) Urine RBC (Auto) Urine Casts (Auto) U Pathogenic Cast Auto U Epithel Cells (Auto) Urine Bacteria (Auto) Current Medications Generic Name Dose Route Start Last Admin Trade Name Freq PRN Reason Stop Dose Admin Clopidogrel Bisulfate 75 mg 09/25/18 10:00 09/25/18 10:27 Plavix - PO 75 mg DAILY RINA Administration Furosemide 40 mg 09/25/18 10:00 09/25/18 10:27 Lasix Injection - IVPUSH 40 mg DAILY RINA Administration Insulin Aspart 1 vial 09/24/18 22:00 09/25/18 13:55 Novolog Vial Sliding Scale - SQ Not Given ACHS [facility] Protocol Levothyroxine Sodium 75 mcg 09/25/18 07:00 09/25/18 07:01 Synthroid - PO 75 mcg DAILY@0700 RINA Administration Sacubitril/Valsartan 1 tab 09/25/18 22:00 Entresto 24 Mg-26 Mg Tablet PO BID RINA Spironolactone 25 mg 09/25/18 10:00 09/25/18 10:27 Aldactone - PO 25 mg DAILY RINA Administration Home Medications Medication Instructions Recorded Clopidogrel Bisulfate [Plavix -] 75 mg PO DAILY #30 tablet 08/02/17 Levothyroxine [Synthroid -] 75 mcg PO DAILY@0700 30 Days #30 08/02/17 tablet Sacubitril/Valsartan [Entresto 24 1 tab PO BID #60 tablet 08/14/17 mg-26 mg Tablet] Furosemide [Lasix] 80 mg PO DAILY 11/28/17 Spironolactone [Aldactone -] 25 mg PO DAILY 09/22/18 Metoprolol Succinate [Toprol Xl] 100 mg PO DAILY 09/24/18 ASSESSMENT AND PLAN: 63 year old female smoker with history of Chronic Respiratory Failure secondary to Chronic Systolic CHF (EF 25%, severely dilated LV, global hypokinesis; 2017 echo), DM 2, HTN, Hypothyroidism, CAD (s/p [place] x 2, s/p CABG, s/p 2x stents) , s/p AICD, and COPD who presents to the emergency department with diffuse body aches and increased SOB. EKG: NSR, R axis dev, rate 96bpm, GA 202ms, qtc 490ms. without acute st-t wave changes CXR: cardiomegaly, congestive changes, blunting L costophrenic angle. 1. Acute on chronic Systolic CHF decompensation with Chronic Respiratory Failure (on 2L home O2) BNP 7632 CXR - congestion Improving s/p 100mg IV Lasix in ED Echo - severe Global hypokinesesis of LV and moderate MR/TR. Continue IV Lasix, Entresto, Aldactone. LE Duplex negative for DVT. Daily Weight, I/Os 2. Elevated Troponins - likely sec to dilated cardiomyopathy rather than acute ischemic event. No chest pain, trop I level flat. Continue Plavix. Cardiology eval - recommend IV Lasix diuresis - no other intervention required. 3. HTN - normally on Metoprolol, Spironolactone, Entresto 4. DM 2 - appears diet controlled. Covered with Insulin sliding scale. 5. CAD s/p OK/PTCA Continue with Plavix, BB, ARB 6. Hypothyroidism - continue Synthroid 7. Elevated Transaminases AST 51, ALT, TBil 2.0 Abdominal US - small amt ascites, Hepatocellular Disease ?fatty liver. Will request DBil. DVT Px - Heparin SQ
[2018-09-25] MEDS ORDERED: KETOROLAC TROMETHAMINE 30 MG/1 ML VIAL IM ONE (20:39)
[2018-09-25] MEDS ORDERED: PT OWN MED DRAWER 7, Y5N ONE (20:50)
[2018-09-25] MEDS: SACUBITRIL/VALSARTAN 24 MG-26 MG TABLET PO SCH (21:40)
[2018-09-25] MEDS: HEPARIN NA (PORCINE) 5,000 UNITS/ML 1ML VIAL SQ SCH (21:40)
[2018-09-25] MEDS ORDERED: ACETAMINOPHEN 1000 MG/100 ML VIAL (NON FORMULARY) IVPB ONE (22:16)
[2018-09-26 01:15] LABS: BILIRUBIN,DIRECT 1.2 mg/dL (0.0-0.2)
[2018-09-26] MEDS: INSULIN SLIDING SCALE (NOVOLOG) 1 VIAL SQ SCH ×4 (06:04→21:49)
[2018-09-26 06:10] LABS: HEMATOCRIT 33.6 % (32.4-45.2); HEMOGLOBIN 10.9 GM/dL (10.7-15.3); MCH 28.5 pg (25.7-33.7); MCHC 32.3 g/dl (32.0-36.0); MEAN CELL VOLUME 88.3 fl (80-96); PLATELET COUNT 209 K/MM3 (134-434)
[2018-09-26] MEDS: LEVOTHYROXINE NA 75 MCG TABLET (FP) PO SCH (06:17)
[2018-09-26] MEDS: HEPARIN NA (PORCINE) 5,000 UNITS/ML 1ML VIAL SQ SCH ×3 (06:17→21:22)
[2018-09-26 06:34] LABS: ALBUMIN 3.1 g/dl (3.4-5.0); BILIRUBIN,TOTAL 1.6 mg/dL (0.2-1); CALCIUM 8.6 mg/dL (8.5-10.1); CREATININE 1.2 mg/dL (0.55-1.3); MAGNESIUM 1.7 mg/dL (1.8-2.4); PHOSPHOROUS 3.1 mg/dL (2.5-4.9); POTASSIUM 3.6 mmol/L (3.5-5.1); TOT PROT 6.3 g/dl (6.4-8.2)
[2018-09-26] MEDS ORDERED: MAGNESIUM SULF 50% (8.12 MEQ/2 ML-1 GM VIAL) IVPB ONE ×2 (06:42→07:35)
[2018-09-26] MEDS ORDERED: PT OWN MED DRAWER 7, Y5N ONE ×3 (09:26→21:10)
[2018-09-26] MEDS: SPIRONOLACTONE 25 MG TABLET (FP) PO SCH (09:29)
[2018-09-26] MEDS: CLOPIDOGREL BISULFATE 75 MG TABLET (FP) PO SCH (09:29)
[2018-09-26] MEDS: SACUBITRIL/VALSARTAN 24 MG-26 MG TABLET PO SCH ×2 (09:29→21:22)
[2018-09-26] MEDS: FUROSEMIDE 40 MG/4 ML INJECTABLE VIAL IVPUSH SCH (09:29)
--- NOTE | 2018-09-26 11:37 | PN ---
Physical Exam: SUBJECTIVE: Patient seen and examined. Pt. endorses pain all over but most prominent in abdomen and legs. Pt. denies fever and chills. Pt. states that she is on home O2 and that it does not go over 5L NC at home. Overnight Pt. was moaning all over and was given Toradol to no effect and IV Tylenol to good effect. OBJECTIVE: Vital Signs Period Temp Pulse Resp BP Sys/Santoro Pulse Ox Last 24 Hr 96.6 F-98.1 F 84-101 20-22 118-148/61-82 98-99 GENERAL: The patient is awake, alert, and fully oriented, in mild distress. HEAD: Normal with no signs of trauma. EYES: PERRL, sclera anicteric, conjunctiva clear. ENT: Ears normal, nares patent, oropharynx clear without exudates, moist mucous membranes. NECK: Trachea midline, full range of motion, supple. LUNGS: Breath sounds equal, clear to auscultation bilaterally, no wheezes, no crackles, no accessory muscle use. HEART: distant heart sounds, Regular rate and rhythm, S1, S2 without murmur ABDOMEN: Soft, diffuse tenderness to palpation, nondistended, normoactive bowel sounds, anasarca EXTREMITIES: 2+ dorsal pedal pulses, warm, b/l LE edema, well-perfused NEUROLOGICAL: Normal speech, gait not observed. PSYCH: Normal mood, normal affect. SKIN: Warm, dry, anasarca, pruritis in hands Laboratory Results - last 24 hr 09/25/18 09/25/18 09/25/18 05:20 13:50 17:22 WBC RBC Hgb Hct MCV MCH MCHC RDW Plt Count MPV Sodium 137 Potassium 3.4 L Chloride 102 Carbon Dioxide 28 Anion Gap 8 BUN 24 H Creatinine 1.1 Est GFR (CKD-EPI)AfAm Est GFR (CKD-EPI)NonAf POC Glucometer 70 89 Random Glucose 60 L Calcium 9.0 Phosphorus 3.4 Magnesium 1.8 Total Bilirubin 2.0 H Direct Bilirubin 1.2 H AST 51 H ALT 36 Alkaline Phosphatase 93 Troponin I 0.25 H Total Protein 6.7 Albumin 3.4 09/25/18 09/26/18 09/26/18 21:01 05:30 05:30 WBC 5.0 RBC 3.80 Hgb 10.9 Hct 33.6 MCV 88.3 MCH 28.5 MCHC 32.3 RDW 16.0 H Plt Count 209 MPV 8.0 Sodium 136 Potassium 3.6 Chloride 101 Carbon Dioxide 28 Anion Gap 8 BUN 30 H Creatinine 1.2 Est GFR (CKD-EPI)AfAm 54.92 Est GFR (CKD-EPI)NonAf 47.39 POC Glucometer 77 Random Glucose 72 L Calcium 8.6 Phosphorus 3.1 Magnesium 1.7 L Total Bilirubin 1.6 H Direct Bilirubin AST 44 H ALT 34 Alkaline Phosphatase 88 Troponin I Total Protein 6.3 L Albumin 3.1 L 09/26/18 06:01 WBC RBC Hgb Hct MCV MCH MCHC RDW Plt Count MPV Sodium Potassium Chloride Carbon Dioxide Anion Gap BUN Creatinine Est GFR (CKD-EPI)AfAm Est GFR (CKD-EPI)NonAf POC Glucometer 77 Random Glucose Calcium Phosphorus Magnesium Total Bilirubin Direct Bilirubin AST ALT Alkaline Phosphatase Troponin I Total Protein Albumin Active Medications Home Medications Medication Instructions Recorded Clopidogrel Bisulfate [Plavix -] 75 mg PO DAILY #30 tablet 08/02/17 Levothyroxine [Synthroid -] 75 mcg PO DAILY@0700 30 Days #30 08/02/17 tablet Sacubitril/Valsartan [Entresto 24 1 tab PO BID #60 tablet 08/14/17 mg-26 mg Tablet] Furosemide [Lasix] 80 mg PO DAILY 11/28/17 Spironolactone [Aldactone -] 25 mg PO DAILY 09/22/18 Metoprolol Succinate [Toprol Xl] 100 mg PO DAILY 09/24/18 Current Medications Clopidogrel Bisulfate (Plavix -) 75 mg PO DAILY [facility] Last Admin: 09/26/18 09:29 Dose: 75 mg Furosemide (Lasix Injection -) 40 mg IVPUSH DAILY [facility] Last Admin: 09/26/18 09:29 Dose: 40 mg Heparin Sodium (Porcine) (Heparin -) 5,000 unit SQ TID [facility] Last Admin: 09/26/18 06:17 Dose: 5,000 unit Insulin Aspart (Novolog Vial Sliding Scale -) 1 vial SQ ACHS [facility]; Protocol Last Admin: 09/26/18 06:04 Dose: Not Given Levothyroxine Sodium (Synthroid -) 75 mcg PO DAILY@0700 [facility] Last Admin: 09/26/18 06:17 Dose: 75 mcg Metoprolol Succinate (Toprol Xl -) 100 mg PO DAILY [facility] Last Admin: 09/26/18 09:29 Dose: 100 mg Sacubitril/Valsartan (Entresto 24 Mg-26 Mg Tablet) 1 tab PO BID@0800,1999 [facility] Last Admin: 09/26/18 09:29 Dose: 1 tab Spironolactone (Aldactone -) 25 mg PO DAILY [facility] Last Admin: 09/26/18 09:29 Dose: 25 mg ASSESSMENT/PLAN: Pt. is a 63 y.o. F w/ PMHx. of HTN, HLD, DM, CAD, Hypothyroidism Hx. STEMI with bypass, stent x 2, CABG 2003, ICD/pacer, [place] 2003 admitted for acute on chronic CHF #Acute on chronic sCHF exacerbation- likely caused by recent URTI documented during previous ED visit 09/19/18 Given 100mg total Lasix IVP close monitoring of BP c/w lasix 40 mg IVP qd for now c/w aldactone, entresto restarted Metoprolol given elemetry findings of V-TACH, Tachy to 140s, PVCs, NSVT. follow I/O closely, Pt. states she has been urinating very frequently and moderate-large amounts of urine 91.44kg-->92.442kg today Echo: LV severely dilated, LV systolic function severely reduced, severe MR, LA and RA mod. dilated, severe global hypokinesis Given echo report, is Pt. candidate for mitral valve intervention? Rpt. CXR: LLL opacification and cardiomegaly Daily Weights Anasarca Troponin plateaued 0.27-->0.25-->0.25 BNP: 7,000s Duplex showed no HDS stenosis Cardiology consult (Dr. Cage) appreciated - f/u recommendations #HTN-controlled Tele events noted- restart metoprolol c/w Entresto, Lasix and aldactone #DM c/w ISS ACHS c/w BGM ACHS A1c: 5.8% #CAD w/ stent x 2 c/w Plavix #Hypothyroid c/w synthroid #F/E/N no IVF at this time- CHF cont to follow lytes Na controlled/ Diabetic Diet #DVT PPx SCD's #Dispo admit to tele
[2018-09-26 11:45] LABS: CREATININE 1.1 mg/dL (0.55-1.3)
--- NOTE | 2018-09-26 12:09 | PN ---
Teaching Attending Note Name of Resident: Onesimo Simmons ATTENDING PHYSICIAN STATEMENT I saw and evaluated the patient. I reviewed the resident's note and discussed the case with the resident. I agree with the resident's findings and plan as documented. SUBJECTIVE: Dyspnea improving. No cough/sputum/fever. OBJECTIVE: Afebrile, Hemodynamically Stable. Last Vital Signs Temp Pulse Resp BP Pulse Ox 96.6 F L 84 20 118/72 99 09/26/18 08:20 09/26/18 08:20 09/26/18 08:20 09/26/18 08:20 09/26/18 08:21 Heart - S1, S2, RRR Lungs - crackles at bases Abdomen - Soft, mild distension, mild generalized tenderness. Bowel Sounds normal. Extremities - Bilateral LE edema. Laboratory Results - last 24 hr 09/25/18 09/25/18 09/25/18 05:20 13:50 17:22 WBC RBC Hgb Hct MCV MCH MCHC RDW Plt Count MPV Sodium 137 Potassium 3.4 L Chloride 102 Carbon Dioxide 28 Anion Gap 8 BUN 24 H Creatinine 1.1 Est GFR (CKD-EPI)AfAm 61.01 Est GFR (CKD-EPI)NonAf 52.64 POC Glucometer 70 89 Random Glucose 60 L Calcium 9.0 Phosphorus 3.4 Magnesium 1.8 Total Bilirubin 2.0 H Direct Bilirubin 1.2 H AST 51 H ALT 36 Alkaline Phosphatase 93 Troponin I 0.25 H Total Protein 6.7 Albumin 3.4 09/25/18 09/26/18 09/26/18 21:01 05:30 05:30 WBC 5.0 RBC 3.80 Hgb 10.9 Hct 33.6 MCV 88.3 MCH 28.5 MCHC 32.3 RDW 16.0 H Plt Count 209 MPV 8.0 Sodium 136 Potassium 3.6 Chloride 101 Carbon Dioxide 28 Anion Gap 8 BUN 30 H Creatinine 1.2 Est GFR (CKD-EPI)AfAm 54.92 Est GFR (CKD-EPI)NonAf 47.39 POC Glucometer 77 Random Glucose 72 L Calcium 8.6 Phosphorus 3.1 Magnesium 1.7 L Total Bilirubin 1.6 H Direct Bilirubin AST 44 H ALT 34 Alkaline Phosphatase 88 Troponin I Total Protein 6.3 L Albumin 3.1 L 09/26/18 06:01 WBC RBC Hgb Hct MCV MCH MCHC RDW Plt Count MPV Sodium Potassium Chloride Carbon Dioxide Anion Gap BUN Creatinine Est GFR (CKD-EPI)AfAm Est GFR (CKD-EPI)NonAf POC Glucometer 77 Random Glucose Calcium Phosphorus Magnesium Total Bilirubin Direct Bilirubin AST ALT Alkaline Phosphatase Troponin I Total Protein Albumin Current Medications Generic Name Dose Route Start Last Admin Trade Name Freq PRN Reason Stop Dose Admin Clopidogrel Bisulfate 75 mg 09/25/18 10:00 09/26/18 09:29 Plavix - PO 75 mg DAILY [facility]INA Administration Furosemide 40 mg 09/25/18 10:00 09/26/18 09:29 Lasix Injection - IVPUSH 40 mg DAILY [facility] Administration Heparin Sodium (Porcine) 5,000 unit 09/25/18 22:00 09/26/18 06:17 Heparin - SQ 5,000 unit TID RINA Administration Insulin Aspart 1 vial 09/24/18 22:00 09/26/18 06:04 Novolog Vial Sliding Scale - SQ Not Given ACHS [facility] Protocol Levothyroxine Sodium 75 mcg 09/25/18 07:00 09/26/18 06:17 Synthroid - PO 75 mcg DAILY@0700 RINA Administration Metoprolol Succinate 100 mg 09/26/18 10:00 09/26/18 09:29 Toprol Xl - PO 100 mg DAILY [facility] Administration Sacubitril/Valsartan 1 tab 09/25/18 22:00 09/26/18 09:29 Entresto 24 Mg-26 Mg Tablet PO 1 tab BID@0800,2000 [facility] Administration Spironolactone 25 mg 09/25/18 10:00 09/26/18 09:29 Aldactone - PO 25 mg DAILY RINA Administration ASSESSMENT AND PLAN: 63 year old female smoker with history of Chronic Respiratory Failure secondary to Chronic Systolic CHF (EF 25%, severely dilated LV, global hypokinesis; 2017 echo), DM 2, HTN, Hypothyroidism, CAD (s/p MD x 2, s/p CABG, s/p 2x stents) , s/p AICD, and COPD who presents to the emergency department with diffuse body aches and increased SOB. EKG: NSR, R axis dev, rate 96bpm, NE 202ms, qtc 490ms. without acute st-t wave changes CXR: cardiomegaly, congestive changes, blunting L costophrenic angle. 1. Acute on chronic Systolic CHF decompensation with Chronic Respiratory Failure (on 2L home O2) BNP 7632 CXR - congestion Improving with IV Lasix diuresis Echo - severe Global hypokinesesis of LV and severe MR/TR. Continue IV Lasix, Entresto, Aldactone. LE Duplex negative for DVT. Daily Weight, I/Os Further recommendations re: valve disease as per Cardiology. 2. Elevated Troponins - likely sec to dilated cardiomyopathy rather than acute ischemic event. No chest pain, trop I level flat. Continue Plavix. Cardiology evaluated - recommend IV Lasix diuresis. 3. HTN - normally on Metoprolol, Spironolactone, Entresto 4. DM 2 - appears diet controlled. Covered with Insulin sliding scale. 5. CAD s/p MD/PTCA Continue with Plavix, BB, ARB 6. Hypothyroidism - continue Synthroid 7. Elevated Transaminases, likely secondary to hepatic congestion, improving Abdominal US - small amt ascites, Hepatocellular Disease ?fatty liver. 8. Hypomagnesemia - repleted. DVT Px - Heparin SQ
--- NOTE | 2018-09-26 13:35 | PN ---
Progress Note, Physician Chief Complaint: Pt A&Ox3; no chest pain or dyspnea. History of Present Illness: The patient is a 63 year old black female, with a significant past medical history of severe systolic CHF (25% EF, severely dilated LV, global hypokinesis ; 07/2017 echo), NIDDM, HTN, hypothyroidism, CAD (2x MS, s/p CABG, s/p 2x stents ), AICD, afib, COPD, s/p cholecystectomy, who presents to the emergency department with diffuse body aches and increased SOB. - Current Medication List Current Medications: Active Medications Clopidogrel Bisulfate (Plavix -) 75 mg PO DAILY [facility] Last Admin: 09/26/18 09:29 Dose: 75 mg Furosemide (Lasix Injection -) 40 mg IVPUSH DAILY [facility] Last Admin: 09/26/18 09:29 Dose: 40 mg Heparin Sodium (Porcine) (Heparin -) 5,000 unit SQ TID [facility] Last Admin: 09/26/18 06:17 Dose: 5,000 unit Insulin Aspart (Novolog Vial Sliding Scale -) 1 vial SQ ACHS [facility]; Protocol Last Admin: 09/26/18 12:21 Dose: Not Given Levothyroxine Sodium (Synthroid -) 75 mcg PO DAILY@0700 [facility] Last Admin: 09/26/18 06:17 Dose: 75 mcg Metoprolol Succinate (Toprol Xl -) 100 mg PO DAILY [facility] Last Admin: 09/26/18 09:29 Dose: 100 mg Sacubitril/Valsartan (Entresto 24 Mg-26 Mg Tablet) 1 tab PO BID@0800,2000 [facility] Last Admin: 09/26/18 09:29 Dose: 1 tab Spironolactone (Aldactone -) 25 mg PO DAILY [facility] Last Admin: 09/26/18 09:29 Dose: 25 mg - Objective Vital Signs: Vital Signs Temperature 96.6 F L 09/26/18 08:20 Pulse Rate 84 09/26/18 08:20 Respiratory Rate 20 09/26/18 08:20 Blood Pressure 118/72 09/26/18 08:20 O2 Sat by Pulse Oximetry (%) 99 09/26/18 08:21 Constitutional: Yes: No Distress, Obese Eyes: Yes: WNL HENT: Yes: WNL Neck: Yes: WNL Cardiovascular: Yes: Murmur (2/6 systolic murmur, LSB-->axilla), S1, S2 Respiratory: Yes: Diminished Gastrointestinal: Yes: Soft ...Rectal Exam: Yes: Deferred Genitourinary: No: Anuria Breast(s): Yes: WNL Musculoskeletal: Yes: Muscle Weakness Extremities: Yes: Cool Edema: Yes Edema: LLE: Trace, RLE: Trace Peripheral Pulses WNL: Yes Integumentary: Yes: Tattoos Neurological: Yes: Alert, Oriented, Paresthesia Psychiatric: Yes: Alert, Oriented Labs: CBC, BMP 09/26/18 05:30 09/26/18 05:30 Abnormal Lab Results 09/25/18 09/26/18 09/26/18 05:20 05:30 05:30 RDW 16.0 H Potassium 3.4 L BUN 24 H 30 H Random Glucose 60 L 72 L Magnesium 1.7 L Total Bilirubin 2.0 H 1.6 H Direct Bilirubin 1.2 H AST 51 H 44 H Troponin I 0.25 H Total Protein 6.3 L Albumin 3.1 L - ....Imaging Chest X-ray: Image Reviewed EKG: Image Reviewed Problem List - Problems (1) AICD (automatic cardioverter/defibrillator) present Code(s): Z95.810 - PRESENCE OF AUTOMATIC (IMPLANTABLE) CARDIAC DEFIBRILLATOR (2) Acute on chronic systolic and diastolic heart failure, NYHA class 3 Assessment/Plan: On metoprolol ER, Entresto, spironolactone, and furosemide. F/u BUN/Cr, electrolytes, Is and Os, daily weight. Maintain electrolytes (see "hypomagnesimia"). Code(s): I50.43 - ACUTE ON CHRONIC COMBINED SYSTOLIC AND DIASTOLIC HRT FAIL (3) Anasarca Code(s): R60.1 - GENERALIZED EDEMA (4) Anxiety and depression Code(s): F41.9 - ANXIETY DISORDER, UNSPECIFIED; F32.9 - MAJOR DEPRESSIVE DISORDER, SINGLE EPISODE, UNSPECIFIED (5) Overweight Code(s): E66.3 - OVERWEIGHT (6) Shortness of breath Code(s): R06.02 - SHORTNESS OF BREATH (7) Cigarette nicotine dependence Assessment/Plan: Pt refuses aid to help with cessation of cigarettes. Code(s): F17.210 - NICOTINE DEPENDENCE, CIGARETTES, UNCOMPLICATED (8) Coronary artery disease Assessment/Plan: On clopidogrel (?ASA allergy). Start atorvastatin; Keep LDL cholesterol < 70 mg/dl. Code(s): I25.10 - ATHSCL HEART DISEASE OF [place] CORONARY ARTERY W/O ANG PCTRS (9) Diabetes Code(s): E11.9 - TYPE 2 DIABETES MELLITUS WITHOUT COMPLICATIONS Qualifiers: Diabetes mellitus type: type 2 Diabetes mellitus alf insulin use: with terminal block assembler use Diabetes mellitus complication status: with unspecified complications Qualified Code(s): E11.8 - Type 2 diabetes mellitus with unspecified complications (10) Fatty liver Code(s): K76.0 - FATTY (CHANGE OF) LIVER, NOT ELSEWHERE CLASSIFIED (11) Hyperlipidemia Assessment/Plan: f/u lipid profile. Statin; keep LDL cholesterol < 70 mg/dl. Code(s): E78.5 - HYPERLIPIDEMIA, UNSPECIFIED (12) Hypertension Code(s): I10 - ESSENTIAL (PRIMARY) HYPERTENSION (13) Hypothyroidism Assessment/Plan: On synthroid. Code(s): E03.9 - HYPOTHYROIDISM, UNSPECIFIED (14) Lower extremity edema Code(s): R60.0 - LOCALIZED EDEMA (15) NSVT (nonsustained ventricular tachycardia) Code(s): I47.2 - VENTRICULAR TACHYCARDIA (16) Sleep apnea Assessment/Plan: ?hx JORDY; pt denies being on nightly CPAP. Code(s): G47.30 - SLEEP APNEA, UNSPECIFIED (17) Status post THR (total hip replacement) Code(s): Z96.649 - PRESENCE OF UNSPECIFIED ARTIFICIAL HIP JOINT (18) Hypomagnesemia Assessment/Plan: replete, and keep 2-2.4 Keep K 4-4.5 PO4 2.5-4.9 Code(s): E83.42 - HYPOMAGNESEMIA
[2018-09-27] MEDS: HEPARIN NA (PORCINE) 5,000 UNITS/ML 1ML VIAL SQ SCH ×2 (06:40→14:20)
[2018-09-27] MEDS: LEVOTHYROXINE NA 75 MCG TABLET (FP) PO SCH (06:40)
[2018-09-27 07:36] LABS: ALBUMIN 3.2 g/dl (3.4-5.0); BILIRUBIN,TOTAL 1.4 mg/dL (0.2-1); CALCIUM 8.5 mg/dL (8.5-10.1); PHOSPHOROUS 2.5 mg/dL (2.5-4.9); POTASSIUM 3.3 mmol/L (3.5-5.1); TOT PROT 6.6 g/dl (6.4-8.2)
[2018-09-27] MEDS ORDERED: PT OWN MED DRAWER 7, Y5N ONE ×2 (07:41)
[2018-09-27] MEDS ORDERED: ACETAMINOPHEN 325 MG TABLET (FP) PO ONE (07:53)
[2018-09-27] MEDS ORDERED: POTASSIUM CHLORIDE TABS 20 MEQ TABLET.ER (FP) PO SCH (08:15)
[2018-09-27] MEDS: SACUBITRIL/VALSARTAN 24 MG-26 MG TABLET PO SCH (08:31)
[2018-09-27] MEDS ORDERED: POTASSIUM CHLORIDE TABS 20 MEQ TABLET.ER (FP) PO ONE (08:44)
[2018-09-27] MEDS: CLOPIDOGREL BISULFATE 75 MG TABLET (FP) PO SCH (09:37)
[2018-09-27] MEDS: SPIRONOLACTONE 25 MG TABLET (FP) PO SCH (09:37)
[2018-09-27] MEDS: FUROSEMIDE 40 MG/4 ML INJECTABLE VIAL IVPUSH SCH (09:37)
[2018-09-27] MEDS ORDERED: ACETAMINOPHEN 325 MG TABLET (FP) PO PRN (09:55)
[2018-09-27] MEDS: INSULIN SLIDING SCALE (NOVOLOG) 1 VIAL SQ SCH (11:18)
--- NOTE | 2018-09-27 12:02 | PN ---
Teaching Attending Note Name of Resident: Onesimo Simmons ATTENDING PHYSICIAN STATEMENT I saw and evaluated the patient. I reviewed the resident's note and discussed the case with the resident. I agree with the resident's findings and plan as documented. SUBJECTIVE: Dyspnea improving. No cough/sputum/fever. Complains of some chronic back pain. OBJECTIVE: Afebrile, Hemodynamically Stable. Last Vital Signs Temp Pulse Resp BP Pulse Ox 97.5 F L 68 18 99/42 L 92 L 09/27/18 09:00 09/27/18 09:00 09/27/18 09:00 09/27/18 09:00 09/27/18 09:00 Heart - S1, S2, RRR Lungs - few crackles at bases Abdomen - Soft, mild distension, mild generalized tenderness. Bowel Sounds normal. Extremities - Bilateral LE edema improving. Laboratory Results - last 24 hr 09/26/18 09/26/18 09/27/18 16:19 21:42 05:54 Sodium Potassium Chloride Carbon Dioxide Anion Gap BUN Creatinine Est GFR (CKD-EPI)AfAm Est GFR (CKD-EPI)NonAf POC Glucometer 77 95 86 Random Glucose Calcium Phosphorus Magnesium Total Bilirubin AST ALT Alkaline Phosphatase Total Protein Albumin 09/27/18 09/27/18 06:00 11:10 Sodium 135 L Potassium 3.3 L Chloride 98 Carbon Dioxide 28 Anion Gap 9 BUN 30 H Creatinine 1.0 Est GFR (CKD-EPI)AfAm 68.47 Est GFR (CKD-EPI)NonAf 59.07 POC Glucometer 118 Random Glucose 69 L Calcium 8.5 Phosphorus 2.5 Magnesium 2.0 Total Bilirubin 1.4 H AST 44 H ALT 34 Alkaline Phosphatase 98 Total Protein 6.6 Albumin 3.2 L Current Medications Generic Name Dose Route Start Last Admin Trade Name Freq PRN Reason Stop Dose Admin Acetaminophen 650 mg 09/27/18 09:55 Tylenol - PO Q6H PRN PAIN Clopidogrel Bisulfate 75 mg 09/25/18 10:00 09/27/18 09:37 Plavix - PO 75 mg DAILY [facility] Administration Furosemide 40 mg 09/25/18 10:00 09/27/18 09:37 Lasix Injection - IVPUSH 40 mg DAILY [facility] Administration Heparin Sodium (Porcine) 5,000 unit 09/25/18 22:00 09/27/18 06:40 Heparin - SQ 5,000 unit TID [facility]INA Administration Insulin Aspart 1 vial 09/24/18 22:00 09/27/18 11:18 Novolog Vial Sliding Scale - SQ Not Given ACHS [facility] Protocol Levothyroxine Sodium 75 mcg 09/25/18 07:00 09/27/18 06:40 Synthroid - PO 75 mcg DAILY@0700 [facility] Administration Metoprolol Succinate 100 mg 09/26/18 10:00 09/27/18 09:37 Toprol Xl - PO 100 mg DAILY [facility] Administration Potassium Chloride 40 meq 09/27/18 08:15 09/27/18 08:25 K-Dur - PO 09/27/18 22:01 40 meq BID RINA Administration Sacubitril/Valsartan 1 tab 09/25/18 22:00 09/27/18 08:31 Entresto 24 Mg-26 Mg Tablet PO 1 tab BID@0800,1999 [facility] Administration Spironolactone 25 mg 09/25/18 10:00 09/27/18 09:37 Aldactone - PO 25 mg DAILY RINA Administration ASSESSMENT AND PLAN: 63 year old female smoker with history of Chronic Respiratory Failure secondary to Chronic Systolic CHF (EF 25%, severely dilated LV, global hypokinesis; 2017 echo), DM 2, HTN, Hypothyroidism, CAD (s/p HI x 2, s/p CABG, s/p 2x stents) , s/p AICD, and COPD who presents to the emergency department with diffuse body aches and increased SOB. EKG: NSR, R axis dev, rate 96bpm, DC 202ms, qtc 490ms. without acute st-t wave changes CXR: cardiomegaly, congestive changes, blunting L costophrenic angle. 1. Acute on chronic Systolic CHF decompensation with Chronic Respiratory Failure (on 2L home O2) BNP 7632 CXR - congestion Improved with IV Lasix diuresis Echo - severe Global hypokinesesis of LV and severe MR/TR. Discussed with Cardiology - to resume oral Lasix along with home meds Entresto, Aldactone. LE Duplex negative for DVT. Daily Weight, I/Os Outpatient follow up re: valve disease, diastolic HF - Dr. Cage. 2. Elevated Troponins - likely sec to dilated cardiomyopathy rather than acute ischemic event. No chest pain, trop I level flat. Continue Plavix. Cardiology evaluated - no acute intervention - for out-patient follow up. 3. HTN - normally on Metoprolol, Spironolactone, Entresto 4. DM 2 - appears diet controlled. 5. CAD s/p HI/PTCA Continue with Plavix, BB, ARB 6. Hypothyroidism - continue Synthroid 7. Elevated Transaminases, likely secondary to hepatic congestion, improving Abdominal US - small amt ascites, Hepatocellular Disease ?fatty liver. 8. Hypomagnesemia - repleted. DVT Px - Heparin SQ. Discussed with Cardiology - medically clear for discharge and Cardiology follow up.
--- NOTE | 2018-09-27 14:10 | DS ---
Physical Exam: SUBJECTIVE: Patient seen and examined OBJECTIVE: Vital Signs Period Temp Pulse Resp BP Sys/Santoro Pulse Ox Last 24 Hr 97.4 F-98.8 F 67-73 18-18 95-102/42-68 92-99 PHYSICAL EXAM GENERAL: The patient is awake, alert, and fully oriented, in no acute distress. HEAD: Normal with no signs of trauma. EYES: PERRL, extraocular movements intact, sclera anicteric, conjunctiva clear. ENT: Ears normal, nares patent, oropharynx clear without exudates, moist mucous membranes. NECK: Trachea midline, full range of motion, supple. LUNGS: Breath sounds equal, clear to auscultation bilaterally, no wheezes, no crackles, no accessory muscle use. HEART: Regular rate and rhythm, S1, S2 without murmur, rub or gallop. ABDOMEN: Soft, nontender, nondistended, normoactive bowel sounds, no guarding, no rebound, no hepatosplenomegaly, no masses. EXTREMITIES: 2+ pulses, warm, well-perfused, no edema. NEUROLOGICAL: Cranial nerves II through XII grossly intact. Normal speech, gait not observed. PSYCH: Normal mood, normal affect. SKIN: Warm, dry, normal turgor, no rashes or lesions noted. LABS Laboratory Results - last 24 hr 09/26/18 09/26/18 09/27/18 16:19 21:42 05:54 Sodium Potassium Chloride Carbon Dioxide Anion Gap BUN Creatinine Est GFR (CKD-EPI)AfAm Est GFR (CKD-EPI)NonAf POC Glucometer 77 95 86 Random Glucose Calcium Phosphorus Magnesium Total Bilirubin AST ALT Alkaline Phosphatase Total Protein Albumin 09/27/18 09/27/18 06:00 11:10 Sodium 135 L Potassium 3.3 L Chloride 98 Carbon Dioxide 28 Anion Gap 9 BUN 30 H Creatinine 1.0 Est GFR (CKD-EPI)AfAm 68.47 Est GFR (CKD-EPI)NonAf 59.07 POC Glucometer 118 Random Glucose 69 L Calcium 8.5 Phosphorus 2.5 Magnesium 2.0 Total Bilirubin 1.4 H AST 44 H ALT 34 Alkaline Phosphatase 98 Total Protein 6.6 Albumin 3.2 L HOSPITAL COURSE: Date of Admission:09/24/18 Date of Discharge: 09/27/18 Discharge Summary Reason For Visit: ACUTE ON CHRONIC CHF Current Active Problems CHF exacerbation (Acute) Hypomagnesemia (Acute) Condition: Improved - Instructions Diet, Activity, Other Instructions: You came in for shortness of breath because of extra fluid around your lungs We gave you additional IV Lasix and monitored your heart. We imaged your heart and found that you have severe mitral regurgitation. Please follow up with your PCP within 1 week. If you do not have one we have provided one for you, Dr. Lugo. Please follow up with your [facility]er, Dr. Cage, within 1 week. Please resume your medications as they were prescribed. Please return to the ED if you are having worsening shortness of breath, chest pain, increased swelling of your abdomen or your legs, or any concerning symptoms. Referrals: Mauricio Lugo MD [Staff Physician] - 1 Week Dick Cage MD [Staff Physician] - 1 Week Disposition: HOME - Home Medications Comprehensive Discharge Medication List: Ambulatory Orders Clopidogrel Bisulfate [Plavix -] 75 mg PO DAILY #30 tablet 08/02/17 Levothyroxine [Synthroid -] 75 mcg PO DAILY@0700 30 Days #30 tablet 08/02/17 Sacubitril/Valsartan [Entresto 24 mg-26 mg Tablet] 1 tab PO BID #60 tablet 08/14 Spironolactone [Aldactone -] 25 mg PO DAILY 09/22/18 Metoprolol Succinate [Toprol Xl] 100 mg PO DAILY 09/24/18 Furosemide [Lasix] 80 mg PO DAILY #30 tablet 09/27/18 - Discharge Referral Referred to [facility] Med P.C.: No
[2018-09-27 15:25] VITALS: BP 99/62; PULSE 66; TEMP 97.7
== END 2018-09-27 18:43 | disposition home or self-care (01) | DRG 292 ==
LOC: JER 15:54 → JERBED 18:13 → J4S 09-25 14:43
PROVIDERS: ADMIT Internal Medicine
DX: I11.0 Hypertensive heart disease with heart failure (principal); J96.10 Chronic respiratory failure, unspecified whether with hypoxia or hypercapnia; I50.23 Acute on chronic systolic (congestive) heart failure; I27.20 Pulmonary hypertension, unspecified; I42.9 Cardiomyopathy, unspecified; R74.0 Nonspecific elevation of levels of transaminase and lactic acid dehydrogenase [LDH]; K76.1 Chronic passive congestion of liver; E78.5 Hyperlipidemia, unspecified; E83.42 Hypomagnesemia; E11.9 Type 2 diabetes mellitus without complications; E03.9 Hypothyroidism, unspecified; G62.9 Polyneuropathy, unspecified; I25.10 Atherosclerotic heart disease of native coronary artery without angina pectoris; F17.210 Nicotine dependence, cigarettes, uncomplicated; F41.9 Anxiety disorder, unspecified; F32.9 Major depressive disorder, single episode, unspecified; I25.2 Old myocardial infarction; Z95.5 Presence of coronary angioplasty implant and graft; Z95.1 Presence of aortocoronary bypass graft; Z96.641 Presence of right artificial hip joint
CPT/HCPCS: 36415; 71045-TC-FY; 76700-TC; 80053; 81003; 82248; 82550; 82553; 82962; 83036; 83735; 83880; 84100; 84439; 84443; 84484; 85025; 85027; 87086; 93005; 93010; 93306-TC; 93970-TC; 96374; 96375; 97116-GP; 97161-GP; 99283-25; 99285-25; J0131; J1644

== ENCOUNTER 2018-09-27 20:38 | Emergency (ER) | payer OTHER, BC ==
[2018-09-27 21:05] VITALS: TEMP 98.3
[2018-09-27 21:12] VITALS: BMI 37.8
--- NOTE | 2018-09-27 22:02 | PDOC ---
History of Present Illness - General Chief Complaint: Injury Stated Complaint: FELL Time Seen by Provider: 09/27/18 21:22 History Source: Patient Exam Limitations: No Limitations - History of Present Illness Initial Comments: 09/27/18 21:51 Patient is a 63F with history of HTN, HLD, DM, CAD, STEMI, CHF, Pulmonary HTN here today after a fall from her wheelchair. She was being pushed by her grandson and suddenly stopped, causing her to slip forward and to have the wheelchair flip over and hit her in the head. Patient endorses pain in her neck and head. Denies LOC. Denies fever, chills, nausea, vomiting. Denies chest pain , abdominal pain, back pain, hip pain, leg pain. Past History - Past Medical History Allergies/Adverse Reactions: Allergies Allergy/AdvReac Type Severity Reaction Status Date / Time aspirin Allergy Mild Rash Verified 09/24/18 16:07 banana Allergy Hives Verified 09/24/18 16:07 tomato Allergy Verified 09/24/18 16:07 Home Medications: Ambulatory Orders Clopidogrel Bisulfate [Plavix -] 75 mg PO DAILY #30 tablet 08/02/17 Levothyroxine [Synthroid -] 75 mcg PO DAILY@0700 30 Days #30 tablet 08/02/17 Sacubitril/Valsartan [Entresto 24 mg-26 mg Tablet] 1 tab PO BID #60 tablet 08/14 Spironolactone [Aldactone -] 25 mg PO DAILY 09/22/18 Metoprolol Succinate [Toprol Xl] 100 mg PO DAILY 09/24/18 Furosemide [Lasix] 80 mg PO DAILY #30 tablet 09/27/18 Anemia: No Asthma: Yes Cancer: No Cardiac Disorders: Yes (Pacemaker,[place] 2013) CVA: No COPD: Yes CHF: Yes Dementia: No Diabetes: Yes GI Disorders: Yes Disorders: No HTN: Yes Hypercholesterolemia: Yes Kidney Stones: Yes Liver Disease: Yes Psychiatric Problems: Yes (depression.) Seizures: No Thyroid Disease: Yes (Hypo) - Surgical History Abdominal Surgery: Yes (hx of peg tube.) Appendectomy: No Cardiac Surgery: Yes (bypass,stent x2, CABG 2003, ICD/Pacer 12/02) Cholecystectomy: Yes (04/2016) Lung Surgery: (cabg 2003) Neurologic Surgery: No Orthopedic Surgery: Yes (Right THR) - Immunization History Immunization Up to Date: Yes - Suicide/Smoking/Psychosocial Hx Smoking Status: No Smoking History: Current every day smoker Have you smoked in the past 12 months: Yes Number of Cigarettes Smoked Daily: 2 Information on smoking cessation initiated: No 'Breaking Loose' booklet given: 09/25/18 Hx Alcohol Use: No Drug/Substance Use Hx: No Substance Use Type: None Hx Substance Use Treatment: No Review of Systems - Review of Systems Able to Perform ROS?: Yes Comments:: 09/27/18 22:02 GENERAL/CONSTITUTIONAL: No fever or chills. No weakness. HEAD, EYES, EARS, NOSE AND THROAT: No change in vision. No sore throat. CARDIOVASCULAR: No chest pain or shortness of breath RESPIRATORY: No cough, wheezing, or hemoptysis. GASTROINTESTINAL: No nausea, vomiting, diarrhea or constipation. GENITOURINARY: No dysuria, frequency, or change in urination. MUSCULOSKELETAL: No joint or muscle swelling or pain. +neck pain. SKIN: No rash NEUROLOGIC: No headache, vertigo, loss of consciousness, or change in strength/ sensation. HEMATOLOGIC/LYMPHATIC: No anemia, easy bleeding, or history of blood clots. ALLERGIC/IMMUNOLOGIC: No hives or skin allergy. *Physical Exam - Vital Signs Last Vital Signs Temp Pulse Resp BP Pulse Ox 98.3 F 63 20 100/56 L 100 09/27/18 21:00 09/27/18 21:00 09/27/18 21:00 09/27/18 21:00 09/27/18 21:00 - Physical Exam Comments: 09/27/18 22:05 GENERAL: Awake, alert, and fully oriented, in no acute distress HEAD: No signs of trauma, normocephalic, atraumatic EYES: PERRLA, EOMI, sclera anicteric, conjunctiva clear ENT: Auricles normal inspection, hearing grossly normal, nares patent, oropharynx clear without exudates. Moist mucosa NECK: Normal ROM, no midline tenderness LUNGS: No distress, speaks full sentences, clear to auscultation bilaterally HEART: Regular rate and rhythm, normal S1 and S2, no murmurs, rubs or gallops, peripheral pulses normal and equal bilaterally. ABDOMEN: Soft, nontender, normoactive bowel sounds. No guarding, no rebound. No masses EXTREMITIES: Normal inspection, Normal range of motion, no edema. No clubbing or cyanosis. NEUROLOGICAL: Cranial nerves II through XII grossly intact. Normal speech, no focal sensorimotor deficits SKIN: Warm, Dry, normal turgor, no rashes or lesions noted. ED Treatment Course - RADIOLOGY Radiology Studies Ordered: Category Date Time Status CERVICAL SPINE CT W/O CONTR [CT] Stat CT Scan 09/27/18 21:[address] WITHOUT CONTRAST [CT] Stat CT Scan 09/27/18 21:27 Ordered CXRPORT [CHEST X-RAY PORTABLE*] [RAD] Stat Radiology 09/27/18 21:28 Ordered Medical Decision Making - Medical Decision Making 09/27/18 22:05 Patient is 63F with history of HTN, HLD, DM, CAD, STEMI, CHF, Pulmonary HTN here today with head and neck trauma. Vitals normal and stable. Will do head ct , cervical spine ct, cxr, ekg. Patient declined ekg. 09/27/18 23:40 Head/spine ct normal. CXR normal. Pain controlled. Will discharge home. *DC/Admit/Observation/Transfer Diagnosis at time of Disposition: Fall - Discharge Dispostion Disposition: HOME Condition at time of disposition: Good Decision to Admit order: No - Referrals Referrals: Parrish Ferrer MD [Primary Care Provider] - - Patient Instructions Printed Discharge Instructions: How to Prevent Falls Additional Instructions: Please follow up with your primary care physician this week. Please return if you have any new, worsening or concerning symptoms, especially fever, chills and increasing pain. - Post Discharge Activity
--- NOTE | 2018-09-27 23:41 | PDOC ---
Documentation entered by Aury Fox SCRIBE, acting as scribe for Anjali Higginbotham MD. Anjali Higginbotham MD: This documentation has been prepared by the Dominique hough Adrianna, SCRIBE, under my direction and personally reviewed by me in its entirety. I confirm that the documentation accurately reflects all work, treatment, procedures, and medical decision making performed by me. Attending Attestation - Resident Resident Name: Rajat Serrano - [facility] HPI: The patient is a 63 year old female, with a significant past medical history of CHF (25% EF, severely dilated LV, global hypokinesis; 07/2017 echo), NIDDM, HTN , hypothyroidism, CAD (2x [place], s/p CABG, s/p 2x stents), AICD, afib, and COPD who presents to the emergency department s/p fall earlier today. Patient was discharged this morning for CHF exacerbation. She notes her grandson was pushing her wheelchair, when they stopped short and consequently she fell out of the chair. Patient states the wheelchair toppled over her, hitting the back of her head and neck. Patient denies LOC, and rates her neck pain as a 1/10 in nature. The patient denies chest pain, shortness of breath, headache and dizziness. Denies fever, chills, nausea, vomit, diarrhea and constipation. Denies dysuria, frequency, urgency and hematuria. Allergies: aspirin, banana, tomato Past surgical history: CABG Social history: No reported PCP: Dr. Parrish Ferrer 09/27/18 22:13 - Physicial Exam PE: GENERAL: Awake, alert, and fully oriented, in no acute distress HEAD: No signs of trauma EYES: PERRLA, EOMI, sclera anicteric, conjunctiva clear ENT: Auricles normal inspection, hearing grossly normal, nares patent, oropharynx clear without exudates. Moist mucosa NECK: Normal ROM, supple, no lymphadenopathy, JVD, or masses LUNGS: Breath sounds equal, clear to auscultation bilaterally. No wheezes, and no crackles HEART: Regular rate and rhythm, normal S1 and S2, no murmurs, rubs or gallops ABDOMEN: +Distended and mildly edematous, improved from 09/24/18. Soft, nontender , normoactive bowel sounds. No guarding, no rebound. No masses EXTREMITIES: Normal range of motion, no edema. No clubbing or cyanosis. No cords, erythema, or tenderness NEUROLOGICAL: Cranial nerves II through XII grossly intact. Normal speech, normal gait SKIN: Warm, Dry, normal turgor, no rashes or lesions noted. 09/27/18 22:40 - Medical Decision Making EXAM#: TYPE/EXAM: RESULT: [id number] RAD/CHEST X-RAY PORTABLE* Status post fall from wheelchair Impression: Cardiomegaly. Limited evaluation of the left lung base. Cannot rule out left lung base consolidation/atelectasis. Reported By: Yadira Oliver MD 09/27/18 22:48 EXAM#: TYPE/EXAM: RESULT: [id number] CT/HEAD CT WITHOUT CONTRAST Status post fall from wheelchair Impression: Moderate atrophy. No gross evidence of a focal intracranial lesion or hemorrhage is seen. CT scan of the cervical spine without intravenous contrast Coronal and sagittal reconstruction images were obtained. Motion artifacts are degrading multiple axial images. No gross fracture, subluxation or prevertebral soft tissue swelling is seen. No jumped facets are identified. Moderate degenerative disc disease at C4-C5 and C5-C6 level with anterior and mild posterior spur formation. Visualized portion of the airway appears unremarkable. No gross enlarged lymph nodes are identified. Note is made of large calcified plaques at the common carotid bifurcation, bilaterally. Lung windows at the thoracic inlet demonstrates a left pleural effusion. Reported By: Yadira Oliver MD 09/27/18 23:30 EXAM#: TYPE/EXAM: RESULT: [id number] CT/CERVICAL SPINE CT W/O CONTR Status post fall from wheelchair IMPRESSION: Limited examination due to motion artifacts. The alignment is satisfactory. No gross fracture or subluxation are identified. Moderate degenerative disc disease at C4-C5 and C5-C6 level with anterior and mild posterior spur formation. Note is made of left pleural effusion for which correlation with CT scan of the chest is recommended. Reported By: Yadira Oliver MD 09/27/18 23:30 09/27/18 22:50 09/27/18 23:03 Pt presents to the ED complaining of mechanical fall from wheelchair. Denies LOC. Complaining only of very mild neck pain. Will check Ct head and C spine to rule out intracranial or cervical spinal injury. Will discharge home if negative.
[2018-09-28 01:13] VITALS: BP 100/60; PULSE 60
--- NOTE | 2018-09-28 11:40 | EKG ---
Test Reason : Blood Pressure : / mmHG Vent. Rate : 049 BPM Atrial Rate : 049 BPM P-R Int : 196 ms QRS Dur : 128 ms QT Int : 478 ms P-R-T Axes : 040 117 133 degrees QTc Int : 431 ms SINUS BRADYCARDIA RIGHT AXIS DEVIATION NON-SPECIFIC INTRA-VENTRICULAR CONDUCTION BLOCK CANNOT RULE OUT SEPTAL INFARCT (CITED ON OR BEFORE 22-SEP-2018) ABNORMAL ECG WHEN COMPARED WITH ECG OF 24-SEP-2018 16:20, SIGNIFICANT CHANGES HAVE OCCURRED Confirmed by VERÓNICA IGNACIO MD ([id number]) on 09/28/2018 11:40:21 AM Referred By: Confirmed By:VERÓNICA IGNACIO MD
== END 2018-09-28 03:08 | disposition home or self-care (01) ==
LOC: JER 20:38
DX: I10 Essential (primary) hypertension (principal); S19.80XA Other specified injuries of unspecified part of neck, initial encounter; S09.8XXA Other specified injuries of head, initial encounter; M54.2 Cervicalgia; W05.0XXA Fall from non-moving wheelchair, initial encounter; Y93.89 Activity, other specified; Y92.038 Other place in apartment as the place of occurrence of the external cause; Y99.8 Other external cause status; I25.10 Atherosclerotic heart disease of native coronary artery without angina pectoris; I11.0 Hypertensive heart disease with heart failure; I50.43 Acute on chronic combined systolic (congestive) and diastolic (congestive) heart failure; Z95.1 Presence of aortocoronary bypass graft; Z95.5 Presence of coronary angioplasty implant and graft; I25.2 Old myocardial infarction; Z95.810 Presence of automatic (implantable) cardiac defibrillator; E11.9 Type 2 diabetes mellitus without complications; E03.9 Hypothyroidism, unspecified; J45.909 Unspecified asthma, uncomplicated; J44.9 Chronic obstructive pulmonary disease, unspecified; Z96.641 Presence of right artificial hip joint; Z87.442 Personal history of urinary calculi; K76.9 Liver disease, unspecified; Z90.49 Acquired absence of other specified parts of digestive tract; F17.210 Nicotine dependence, cigarettes, uncomplicated
CPT/HCPCS: 70450-TC; 71045-TC-FY; 72125-TC; 93005; 93010; 99282-25

== ENCOUNTER 2018-10-02 22:51 | Inpatient (IN) | payer OTHER, BC | END 2018-10-14 14:26 | disposition home or self-care (01) | LOC: JER 22:51 → J4W 10-12 15:35 → JERBED 10-03 04:16 → J4W 10-03 20:00 ==

== ENCOUNTER 2018-10-17 11:55 | Inpatient (IN) | payer OTHER, BC ==
--- NOTE | 2018-10-17 12:18 | PDOC ---
History of Present Illness - General Chief Complaint: Edema Stated Complaint: Pain Time Seen by Provider: 10/17/18 12:18 History Source: Patient Exam Limitations: No Limitations - History of Present Illness Initial Comments: 10/17/18 12:19 63 year old woman with a hx of CHF (severe LV dilation, moderate TR, MR), home O2 (5L around the clock) HTN, HLD, CAD s/p CABG;STEMI, and pulmonary HTN recent admission for CHF exacerbation who presents with slightly increased swelling in the legs bilaterally since discharge. During admission the patient had a decrease in metoprolol dosage but has been taking all her medications as prescribed. The patient takes: Current Ambulatory Meds Clopidogrel Bisulfate [Plavix -] 75 mg PO DAILY #30 tablet 08/02/17 Levothyroxine [Synthroid -] 75 mcg PO DAILY@0700 30 Days #30 tablet 08/02/17 Furosemide [Lasix] 80 mg PO DAILY #30 tablet 09/27/18 Metoprolol Succinate [Toprol XL -] 75 mg PO DAILY #90 tab.sr.24h 10/14/18 She reports compliance with all meds and states her daughter comes to her house 3 times a week to care for her. Patient has an appointment with Dr. Cardenas in October. She denies chest pain, bnausea, diaphoresis,abdominal pain, fevers, diarrhea, constipation, or any other complaints. Past History - Past Medical History Allergies/Adverse Reactions: Allergies Allergy/AdvReac Type Severity Reaction Status Date / Time aspirin Allergy Mild Rash Verified 10/02/18 22:55 banana Allergy Hives Verified 10/02/18 22:55 tomato Allergy Verified 10/02/18 22:55 Home Medications: Ambulatory Orders Clopidogrel Bisulfate [Plavix -] 75 mg PO DAILY #30 tablet 08/02/17 Levothyroxine [Synthroid -] 75 mcg PO DAILY@0700 30 Days #30 tablet 08/02/17 Furosemide [Lasix] 80 mg PO DAILY #30 tablet 09/27/18 Metoprolol Succinate [Toprol XL -] 75 mg PO DAILY #90 tab.sr.24h 10/14/18 Furosemide [Lasix -] 40 mg PO DAILY #6 tablet 10/17/18 Anemia: No Asthma: Yes Cancer: No Cardiac Disorders: Yes (AICD,[place] 2013, stents) CVA: No COPD: No CHF: Yes Dementia: No Diabetes: Yes GI Disorders: Yes Disorders: No HTN: Yes Hypercholesterolemia: Yes Kidney Stones: Yes Liver Disease: Yes Psychiatric Problems: Yes (depression.) Seizures: No Thyroid Disease: Yes (Hypo) - Surgical History Abdominal Surgery: Yes (peg tube.) Appendectomy: No Cardiac Surgery: Yes (bypass,stent x2, CABG 2003, ICD/Pacer 7/15) Cholecystectomy: Yes (04/2016) Lung Surgery: (cabg 2003) Neurologic Surgery: No Orthopedic Surgery: Yes (Right THR) - Immunization History Immunization Up to Date: Yes - Suicide/Smoking/Psychosocial Hx Smoking Status: No Smoking History: Former smoker Have you smoked in the past 12 months: No Number of Cigarettes Smoked Daily: 2 Information on smoking cessation initiated: No 'Breaking Loose' booklet given: 09/25/18 Hx Alcohol Use: No Drug/Substance Use Hx: No Substance Use Type: None Hx Substance Use Treatment: No Review of Systems - Review of Systems Able to Perform ROS?: Yes Comments:: 10/17/18 13:15 GENERAL/CONSTITUTIONAL: No fever or chills. No weakness. HEAD, EYES, EARS, NOSE AND THROAT: No change in vision. No ear pain or discharge. No sore throat. CARDIOVASCULAR: No chest pain or shortness of breath RESPIRATORY: No cough, wheezing, or hemoptysis. GASTROINTESTINAL: No nausea, vomiting, diarrhea or constipation. GENITOURINARY: No dysuria, frequency, or change in urination. MUSCULOSKELETAL: No joint or muscle swelling or pain. No neck or back pain. SKIN: No rash NEUROLOGIC: No headache, vertigo, loss of consciousness, or change in strength/ sensation. ENDOCRINE: No increased thirst. No abnormal weight change HEMATOLOGIC/LYMPHATIC: No anemia, easy bleeding, or history of blood clots. ALLERGIC/IMMUNOLOGIC: No hives or skin allergy. Is the patient limited Welsh proficient: No *Physical Exam - Vital Signs Last Vital Signs Temp Pulse Resp BP Pulse Ox 97.9 F 68 18 126/77 10/17/18 12:00 10/17/18 12:00 10/17/18 12:00 10/17/18 12:00 - Physical Exam Comments: 10/17/18 13:15 GENERAL: Awake, alert, and fully oriented, in no acute distress HEAD: No signs of trauma, normocephalic, atraumatic EYES: EOMI, sclera anicteric, conjunctiva clear ENT: oropharynx clear without exudates. Moist mucosa NECK: Normal ROM, supple LUNGS: No distress, speaks full sentences, clear to auscultation bilaterally HEART: Regular rate and rhythm, normal S1 and S2, no murmurs, rubs or gallops, peripheral pulses normal and equal bilaterally. ABDOMEN: Soft, nontender, normoactive bowel sounds. No guarding, no rebound. No masses EXTREMITIES : Normal inspection, Normal range of motion, + 3 pitting edema into the thighs. NEUROLOGICAL: Cranial nerves II through XII grossly intact. Normal speech, normal gait, no focal sensorimotor deficits SKIN: Warm, Dry, normal turgor, no rashes or lesions noted ED Treatment Course - LABORATORY CBC & Chemistry Diagram: 10/17/18 13:18 10/17/18 13:18 Medical Decision Making - Medical Decision Making 10/17/18 13:11 63 year old woman with a hx of CHF (severe LV dilation, moderate TR, MR), home O2 (5L around the clock) HTN, HLD, CAD s/p CABG;STEMI, and pulmonary HTN recent admission for CHF exacerbation who presents with slightly increased swelling in the legs bilaterally since discharge. During admission the patient had a decrease in metoprolol dosage but has been taking all her medications as prescribed. ED Course: ddx ibnlt: chf exacerb vs arrythmai vs acs vs recent medication changes less liekly hypothyroidsim vs infectious 10/17/18 13:12 liekly patient will need some adjustments with her medications will call Dr. Cardenas 10/17/18 13:45 CXR: significant cardiomegaly some vascular congestive changes improving from 10/17/18 14:56 elevated troponin elevated bnp 10/17/18 16:01 Attending discussed case with Dr. Cardenas, cardiology, who recommends lasix 80 now and home with 80 am and 40 pm. Cards will follow up on Sunday. Social work at bedside for instruction. 10/17/18 16:49 repeat troponin *DC/Admit/Observation/Transfer Diagnosis at time of Disposition: Elevated troponin - Discharge Dispostion Disposition: HOME Condition at time of disposition: Stable Decision to Admit order: Yes - Prescriptions Prescriptions: Furosemide [Lasix -] 40 mg PO DAILY #6 tablet - Referrals Referrals: Parrish Ferrer MD [Primary Care Provider] - - Patient Instructions Additional Instructions: You were seen in the ED for complaints of increased swelling in the legs. In the ED you were evaluated with labwork. Your results were at your baseline. There does not appear to be an acute need for immediate hospitalization. You are advised to follow up with your Primary Care Physician within 1 week. You were given a referral to Cardiology, Dr. Carednas and you should follow up on Sunday10/21/18. You were given a prescription for Lasix 40 to be taken at night in addition to your Lasix 80 in the morning. Return to the ED immediately if you experience worsening swelling in the legs, chest pain, shortness of breath, nausea or sweating. - Post Discharge Activity
--- NOTE | 2018-10-17 13:12 | PDOC ---
Documentation entered by Freya Willis SCRIBE, acting as scribe for Julius Harry MD. Julius Harry MD: This documentation has been prepared by the Alba hough Daisy, SCRIBE, under my direction and personally reviewed by me in its entirety. I confirm that the documentation accurately reflects all work, treatment, procedures, and medical decision making performed by me. Attending Attestation - Resident Resident Name: Genet Fink - ED Attending Attestation I have performed the following: I have examined & evaluated the patient, The case was reviewed & discussed with the resident, I agree w/resident's findings & plan - HPI HPI: 10/17/18 13:01 The patient is a 63YOF with a PMH of CHF, HTN, HLD, CAD s/p CABG, and STEMI who presents to the ER for increased bilateral leg swelling. Patient states she was discharged for CHF exacerbation 2 days ago during which time she had her metoprolol modified. Patient has not yet followed up with her PCP or registered physical therapist. Patient is on 5L of home O2, denies worsening sob, fever, chills, sob, N/V/D/C, or urinary symptoms. Allergies: aspirin PCP: Dr. Ferrer Cardio: Dr. Cyr - Physicial Exam PE: 10/17/18 13:09 Adult Physical Exam Vitals: Triage vital signs reviewed General Appearance: No acute distress, well nourished, well developed Cardiac: Regular rate and rhythm, no murmurs, no rubs, no gallops Lungs: Clear to auscultation bilateral, good air movement bilaterally Abdomen: Soft, nondistended, normal bowel sounds, nontender to palpation Extremities: Full range of motion to all extremities, no cyanosis, clubbing, or edema Skin: Warm and dry, no rashes or lesions, no rash, no petechiae Neuro: AOX3; Cranial Nerves 2-12 grossly intact, Strength intact to all extremities, Sensation intact to all extremities - Medical Decision Making 10/17/18 16:43 Patient presents with leg swelling and pain secondary to chronic CHF patient was discharged from hospital 3 days ago. Troponin 0.11 this is likely secondary to her underlying CHF we'll send a second troponin to trend if no change patient is been giving 80 of Lasix in the emergency department case has been discussed with her registered physical therapist. We will add 40 mg at night to her Lasix regimen for the next 3 nights and she'll follow- up with her registered physical therapist on Sunday. Reevaluation second troponin is doubled given this delta we'll observe overnight on telemetry Heart Score/ECG Review - ECG Impressions Comment:: 10/17/18 16:43 EKG performed at 1340 demonstrates sinus rhythm no ST elevations or T-wave inversions. Interpreted by me.
[2018-10-17 13:27] LABS: BASO % 0.4 % (0-2.0); HEMATOCRIT 33.2 % (32.4-45.2); HEMOGLOBIN 10.6 GM/dL (10.7-15.3); LYMPH % 12.9 % (8-40); MCH 27.7 pg (25.7-33.7); MCHC 31.8 g/dl (32.0-36.0); MEAN CELL VOLUME 87.1 fl (80-96); MEAN PLT VOLUME 7.4 fl (7.5-11.1); MONO % 17.7 % (3.8-10.2); PLATELET COUNT 216 K/MM3 (134-434); RBC 3.81 M/mm3 (3.60-5.2); RDW 15.5 % (11.6-15.6); WHITE BLOOD COUNT 4.5 K/mm3 (4.0-10.0)
[2018-10-17 13:39] LABS: INR 1.36 (0.83-1.09); PROTHROMBIN TIME (PATIENT) 16.1 SEC (9.7-13.0)
[2018-10-17 13:41] LABS: ACTIVATED PTT 40.4 SECONDS (25.2-36.5)
[2018-10-17] MEDS ORDERED: ACETAMINOPHEN 1000 MG/100 ML VIAL (NON FORMULARY) IVPB ONE (14:05)
[2018-10-17 14:13] LABS: ALBUMIN 3.2 g/dl (3.4-5.0); BILIRUBIN,TOTAL 1.5 mg/dL (0.2-1); CREATININE 0.7 mg/dL (0.55-1.3); POTASSIUM 4.1 mmol/L (3.5-5.1)
[2018-10-17] MEDS ORDERED: FUROSEMIDE 40 MG/4 ML INJECTABLE VIAL IVPUSH ONE (15:48)
[2018-10-17] MEDS ORDERED: FUROSEMIDE 40 MG/4 ML INJECTABLE VIAL ONE (15:49)
--- NOTE | 2018-10-17 18:02 | HP ---
CHIEF COMPLAINT:edema in legs is same since discharge. PCP: Dr kumar HISTORY OF PRESENT ILLNESS: 63 year old woman with a hx of CHF (severe LV disfunction, moderate TR, MR), home O2 (5L around the clock) HTN, HLD, CAD s/p CABG;STEMI, and pulmonary HTN recent admission for CHF exacerbation discharged 2 days ago. Now pt came with her daughter adonay velazquez that nothing has changed in her condition since discharge, her edema in legs is same, her breathing is same so she brought her to hospital. IN ER trop was checked whichshows rising trend from 0.11 to o.21 so pt is kept in obs for further ,management. Pt and daugter states that she is compliant with her meds, her weight is same, eating low salt diet, denies chest pain, palpitataions, sob, nausea, vomitying diarrhoea, has chronic abdominal distension with chronic pain for which workup was done in previous admission. During previous admission the patient had a decrease in metoprolol dosage from 100 to 75 and spironolactone was stopped ER course was notable for: (1)cbc, cmp, trop, ckmb (2)iv lasix 80mg (3) Recent Travel: no PAST MEDICAL HISTORY: as above PAST SURGICAL HISTORY: cabg 2003, 2 stent in 2005, pacemaker Social History: Smoking: current smoker about pack a day from age of 11 Alcohol: no Drugs: no Family History: none Allergies aspirin Allergy (Mild, Verified 10/02/18 22:55) Rash banana Allergy (Verified 10/02/18 22:55) Hives tomato Allergy (Verified 10/02/18 22:55) HOME MEDICATIONS: Home Medications Medication Instructions Recorded Clopidogrel Bisulfate [Plavix -] 75 mg PO DAILY #30 tablet 08/02/17 Levothyroxine [Synthroid -] 75 mcg PO DAILY@0700 30 Days #30 08/02/17 tablet Furosemide [Lasix] 80 mg PO DAILY #30 tablet 09/27/18 Metoprolol Succinate [Toprol XL -] 75 mg PO DAILY #90 tab.sr.24h 10/14/18 Furosemide [Lasix -] 40 mg PO DAILY #6 tablet 10/17/18 REVIEW OF SYSTEMS CONSTITUTIONAL: Absent: fever, chills, diaphoresis, generalized weakness, malaise, loss of appetite, weight change HEENT: Absent: rhinorrhea, nasal congestion, throat pain, throat swelling, difficulty swallowing, mouth swelling, ear pain, eye pain, visual changes CARDIOVASCULAR: Absent: chest pain, syncope, palpitations, irregular heart rate, lightheadedness , peripheral edema RESPIRATORY: Absent: cough, shortness of breath, dyspnea with exertion, orthopnea, wheezing, stridor, hemoptysis GASTROINTESTINAL: Absent: abdominal pain, chronic abdominal distension, nausea, vomiting, diarrhea , constipation, melena, hematochezia GENITOURINARY: Absent: dysuria, frequency, urgency, hesitancy, hematuria, flank pain, genital pain MUSCULOSKELETAL: chronic generalized pain ENDOCRINE: Absent: unexplained weight gain, NEUROLOGIC: Absent: headache, focal weakness PSYCHIATRIC: Absent: anxiety, depression, PHYSICAL EXAMINATION Vital Signs - 24 hr 10/17/18 10/17/18 12:00 16:06 Temperature 97.9 F 96.8 F L Pulse Rate 68 Pulse Rate [ 88 Right Radial] Respiratory 18 20 Rate Blood Pressure 126/77 Blood Pressure 136/84 [Right Arm] O2 Sat by Pulse 99 Oximetry (%) GENERAL: Awake, alert, and fully oriented, in no acute distress. HEAD: Normal with no signs of trauma. EARS, NOSE, THROAT: Ears normal, nares patent, oropharynx clear without exudates. Moist mucous membranes. NECK: Normal range of motion, supple without lymphadenopathy, JVD, LUNGS: Breath sounds equal, No wheezes, crackles on left side . No accessory muscle use. HEART: Regular rate and rhythm, normal S1 and S2, MR and TR systolic murmur ABDOMEN: distended, mild tender, no guarding, no rigidity, BS + UPPER EXTREMITIES: 2+ pulses, warm, well-perfused. No cyanosis. No clubbing. No peripheral edema. LOWER EXTREMITIES: b/l pittiong edema upto anterior abdominal wall ( as per pt chronic) NEUROLOGICAL: Cranial nerves II-XII intact. Normal speech. Normal gait. PSYCHIATRIC: Cooperative. Good eye contact. SKIN: Warm, dry, Laboratory Results - last 24 hr 10/17/18 10/17/18 10/17/18 13:18 13:18 13:18 WBC 4.5 RBC 3.81 Hgb 10.6 L Hct 33.2 MCV 87.1 MCH 27.7 MCHC 31.8 L RDW 15.5 Plt Count 216 MPV 7.4 L Absolute Neuts (auto) 3.1 Neutrophils % 69.0 Lymphocytes % 12.9 D Monocytes % 17.7 H Eosinophils % 0.0 Basophils % 0.4 Nucleated RBC % 0 PT with INR 16.10 H INR 1.36 H PTT (Actin FS) 40.4 H Sodium 139 Potassium 4.1 Chloride 101 Carbon Dioxide 33 H Anion Gap 5 L BUN 32 H Creatinine 0.7 Est GFR (CKD-EPI)AfAm 105.38 Est GFR (CKD-EPI)NonAf 90.92 Random Glucose 76 Calcium 9.0 Total Bilirubin 1.5 H AST 35 ALT 18 Alkaline Phosphatase 88 Creatine Kinase CK-MB (CK-2) Troponin I 0.11 H B-Natriuretic Peptide 4477.0 H Total Protein 7.0 Albumin 3.2 L TSH 1.76 10/17/18 16:05 WBC RBC Hgb Hct MCV MCH MCHC RDW Plt Count MPV Absolute Neuts (auto) Neutrophils % Lymphocytes % Monocytes % Eosinophils % Basophils % Nucleated RBC % PT with INR INR PTT (Actin FS) Sodium Potassium Chloride Carbon Dioxide Anion Gap BUN Creatinine Est GFR (CKD-EPI)AfAm Est GFR (CKD-EPI)NonAf Random Glucose Calcium Total Bilirubin AST ALT Alkaline Phosphatase Creatine Kinase 85 CK-MB (CK-2) 1.9 Troponin I 0.21 H B-Natriuretic Peptide Total Protein Albumin TSH ASSESSMENT/PLAN: Patient is a 63 y.o. F w/ PMHx. of CHFrEF (EF 25%) s/p ACID, HTN, DM, CAD s/p 2 stents, and hypothyroidism admitted for rising trop i #CHFrEF with anasarca-chronic baseline on 5 L NC at home Lasix 80IV given in er last Echo: LV severly dilated, LV severly reduced, global hypokinesis, EF 25 % patient has an ACID:f/u Dr. Arizmendi monitor I's and O's CXR: no increase in congestion Strict Is & Os Daily weights low salt diet cardiac monitoring cardiology consult consider starting entresto and spironolactone. #Abdominal pain 2/2 anasarca-chronic work up done in last admission 10/03CT C/A/P: No PE, cardiomegaly, L moderate pleural effusion, hepatomegaly, ascites, fibroid uterus, dilated and tortuous R. ovarian vein, subcutaneous edema consistent with anasarca, abdominal aorta is ectatic and heavily calcified w/o dilatation. 5/16 Transvaginal US: scattered calcifications in uterus c/w Leiomyomata, no discrete masses identified, moderate ascites in pelvis, no free fluid, limited exam as endometrium and ovaries cannot be visualized. Ca 19-9: 1, normal range CA 125: 179.9, elevated. #CAD s/p 2 stents-stable c/w plavix c/w metoprolol troponin 011--> 0.21---> repeat after 6 hours genesisley demand ischemia, ckmb normal #Hypothyroidism c/w Synthroid #DVT Ppx. heparin #FEN No IVF, encourage PO intake but limit fluids to less than 1L daily monitor electrolytes, replete as needed Na restricted/diabetic diet Visit type - Emergency Visit Emergency Visit: Yes ED Registration Date: 10/17/18 Care time: The patient presented to the Emergency Department on the above date and was hospitalized for further evaluation of their emergent condition. - New Patient This patient is new to me today: Yes Date on this admission: 10/20/18 - Critical Care Critical Care patient: No
--- NOTE | 2018-10-17 18:50 | PN ---
Teaching Attending Note Name of Resident: Theodore Ceballos ATTENDING PHYSICIAN STATEMENT I saw and evaluated the patient. I reviewed the resident's note and discussed the case with the resident. I agree with the resident's findings and plan as documented. SUBJECTIVE: CC: LE edema HPI: 63 y/o lady with h/o Chronic Systolic CHF, CAD (s/p ND x 2, s/p CABG, s/p 2x stents), CRF sec to COPD (on 2L O2 at home), Hypothyroidism, DM 2, and recent admission fro acute heart failure exacerbation ( dc on 10/15) , she came due to LE edema that is not changed form time of dc since her dc , she reports compliance with meds, but did not notice a change in her LE edema. reports pain in LE. No SOB. has chronic Abd pain, that is not changed.denies CP OBJECTIVE: NAD, flat affect. gets aggravated easily. avoids eye contact . AAOx3 , aware of her condition MMM, + JVD. no facial droop. does not open her eyes for evaluation CV: RRr, 3/6 Sm at base, LLSb and [place]. Lungs: L base crackles. anterior wheezes Abd: soft, TTP in all quadrants even to light touch. Abd wall edema and erythema LE : edema , erythema, tenderness. no fungal infection in feet. no skin break down ASSESSMENT AND PLAN: 63 y/o lady with h/o Chronic Systolic CHF, CAD (s/p ND x 2, s/p CABG, s/p 2x stents), CRF sec to COPD (on 2L O2 at home), Hypothyroidism, DM 2, and recent admission for acute heart failure exacerbation ( dc on 10/15) , she came due to LE edema that is not changed form time of dc 1- Acute systolic CHF exacerbation: - d/w card. lasix 80 IV daily - entresto and spironolactone were held last admisison and not resume at dc. will d/w card as LIANNA has resolved. - I&O and weight 2- HTN: - cont metoprolol ( dose decreased to 75 at dc ) - entresto as above 3- ELevated trop: doubt ACS - d/w card - trend - card f/u - cont plavix 4- dispo : HLOC she wants to leave AMA .risks were explained by dr. Ceballos.
[2018-10-17] MEDS: HEPARIN NA (PORCINE) 5,000 UNITS/ML 1ML VIAL SQ SCH (21:17)
[2018-10-18] MEDS: LEVOTHYROXINE NA 75 MCG TABLET (FP) PO SCH (06:32)
[2018-10-18] MEDS: HEPARIN NA (PORCINE) 5,000 UNITS/ML 1ML VIAL SQ SCH ×3 (06:35→22:01)
[2018-10-18 08:07] LABS: BASO % 0.5 % (0-2.0); HEMATOCRIT 30.7 % (32.4-45.2); HEMOGLOBIN 9.8 GM/dL (10.7-15.3); LYMPH % 12.4 % (8-40); MCH 27.8 pg (25.7-33.7); MEAN PLT VOLUME 7.7 fl (7.5-11.1); MONO % 17.3 % (3.8-10.2); NEUT % 69.8 % (42.8-82.8); PLATELET COUNT 221 K/MM3 (134-434); RBC 3.53 M/mm3 (3.60-5.2); RDW 15.4 % (11.6-15.6); WHITE BLOOD COUNT 4.4 K/mm3 (4.0-10.0)
[2018-10-18 08:34] LABS: INR 1.42 (0.83-1.09); PROTHROMBIN TIME (PATIENT) 16.8 SEC (9.7-13.0)
--- NOTE | 2018-10-18 08:45 | CON.CARD ---
Consult Consult Specialty:: cardiology Reason for Consultation:: CHF - History of Present Illness Chief Complaint: Pt A&Ox3; denies chest pain or dyspnea; c/o bilateral pain and swelling in legs; the pain is principally in her feet, and sometimes extends to her back and neck (hx headaches; followed by Dr. Oliveira), History of Present Illness: The patient is a 63 yr old black woman with a PMH of severe systolic CHF, ICD ( Serstech; since 2014) HTN, HLD, CAD s/p ND-->CABG 2003 at [facility], obesity, anxiety/depression, hypothyroidism, long-term ad current cigarette smoker, who presents to the ER for increased bilateral leg swelling and pain in her feet that shoot up into her back and neck. Patient states she was discharged for CHF exacerbation 2 days ago during which time she had her metoprolol and furosemide modified. Patient has not yet followed up with her PCP or marking clerk. Patient is on 5L of home O2, denies worsening sob, fever, chills, sob, N/V/D/C, or urinary symptoms. Allergies: aspirin PCP: Dr. Ferrer Cardio: Dr. 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 Had PEG placed 11/03 after suffering vocal cord damage ( EMS intubation). PEG was subsequently removed. ) Hepatobiliary: Yes: Cirrhosis (cardiac cirrhosis), Cholecystitis (s/p lap choly 05/05) Renal/: Yes: Renal Calculi ...: No Heme/Onc: Yes: Anemia Psych: Yes: Depression Musculoskeletal: Yes: Chronic low back pain, Osteoarthritis Endocrine: Yes: Hypothyroidism - Past Surgical History Past Surgical History: Yes: AICD, CABG, Cholecystectomy (05/05), Colonoscopy, Joint Replacement (right THR), Stent (X2) - Alcohol/Substance Use Hx Alcohol Use: No History of Substance Use: reports: None - Smoking History Smoking history: Former smoker Have you smoked in the past 12 months: No Aproximately how many cigarettes per day: 2 - Social History Usual Living Arrangement: Alone ADL: Independent 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 History of Recent Travel: No Home Medications - Allergies Allergies/Adverse Reactions: Allergies Allergy/AdvReac Type Severity Reaction Status Date / Time aspirin Allergy Mild Rash Verified 10/02/18 22:55 banana Allergy Hives Verified 10/02/18 22:55 tomato Allergy Verified 10/02/18 22:55 - Home Medications Home Medications: Ambulatory Orders Clopidogrel Bisulfate [Plavix -] 75 mg PO DAILY #30 tablet 08/02/17 Levothyroxine [Synthroid -] 75 mcg PO DAILY@0700 30 Days #30 tablet 08/02/17 Furosemide [Lasix] 80 mg PO DAILY #30 tablet 09/27/18 Metoprolol Succinate [Toprol XL -] 75 mg PO DAILY #90 tab.sr.24h 10/14/18 Furosemide [Lasix -] 40 mg PO DAILY #6 tablet 10/17/18 Family Disease History - Family Disease History Family Disease History: Diabetes: Sister (s/p CABG in her 50s), Heart Disease: Father (had unknown cancer), Mother (lived to ), Sister, CA: Father Review of Systems - Review of Systems Constitutional: reports: Weakness - Risk Factors Known Risk Factors: Yes: Age, Family History, Hypercholesterolemia, Hypertension , Physical Inactivity, Prior ND /Emb Stroke, Race, Smoking, Other (severe systolic CHF) Vital Signs: Vital Signs Temperature 97.9 F 10/18/18 07:00 Pulse Rate 83 10/18/18 07:00 Respiratory Rate 18 10/18/18 07:00 Blood Pressure 117/60 10/18/18 07:00 O2 Sat by Pulse Oximetry (%) 95 10/18/18 01:54 Constitutional: Yes: Calm, Obese Eyes: Yes: WNL HENT: Yes: WNL Neck: Yes: WNL Respiratory: Yes: Regular Gastrointestinal: Yes: Soft, Ascites, Hernia Renal/: No: Anuria Cardiovascular: Yes: Regular Rate and Rhythm Heart Sounds: Yes: S1, Split S2 Murmur: Yes: Systolic Murmur, Grade 2 Musculoskeletal: Yes: Back Pain, Joint Stiffness, Joint Swelling, Muscle Pain Extremities: Yes: Cool Edema: Yes Edema: LLE: 2+, RLE: 2+ Peripheral Pulses WNL: No Peripheral Pulses: 1+ Left Doralis Pedis, 1+ Right Dorsalis Pedis Integumentary: Yes: Venous Stasis Changes Neurological: Yes: Alert, Oriented Psychiatric: Yes: Alert, Oriented - Other Data Labs, Other Data: CBC, BMP 10/18/18 07:19 INR, PTT INR 1.42 (0.83-1.09) H 10/18/18 07:19 Troponin, BNP 10/17/18 10/17/18 13:18 16:05 Troponin I 0.11 H 0.21 H B-Natriuretic Peptide 4477.0 H Troponin, BNP 10/17/18 10/17/18 13:18 16:05 Troponin I 0.11 H 0.21 H B-Natriuretic Peptide 4477.0 H Echo: Report Reviewed Prior Cardiac Procedures: CABG, Cardiac Catheterization, Other (ICD) Ejection Fraction %: LVEF < 40 % (severely reduced LVEF) Imaging - Results Chest X-ray: Image Reviewed (moderate CHF changes relatively unchanged from several days ago) EKG: Image Reviewed (NSR; ?old septal infarct) Problem List - Problems (1) Obesity Code(s): E66.9 - OBESITY, UNSPECIFIED (2) AICD (automatic cardioverter/defibrillator) present Code(s): Z95.810 - PRESENCE OF AUTOMATIC (IMPLANTABLE) CARDIAC DEFIBRILLATOR (3) Acute on chronic systolic and diastolic heart failure, NYHA class 3 Assessment/Plan: Restart Entresto. Continue metoprolol. On furosemide IVP 80 mg daily; Retry spironolactone if pt tolerates above; f/u BUN/Cr and electrolytes. Code(s): I50.43 - ACUTE ON CHRONIC COMBINED SYSTOLIC AND DIASTOLIC HRT FAIL (4) Anasarca Code(s): R60.1 - GENERALIZED EDEMA (5) Anxiety and depression Assessment/Plan: exacerbated upon of her in 2007 Pt resists counseling. Code(s): F41.9 - ANXIETY DISORDER, UNSPECIFIED; F32.9 - MAJOR DEPRESSIVE DISORDER, SINGLE EPISODE, UNSPECIFIED (6) Elevated troponin Assessment/Plan: Chronic mild TNI elevation (CK WNL this admission), with acute/chronic severe systolic CHF a major contributor. Last coronary angiogram 2015; no PCI required of LAD lesion; failed attempt at opening totally occluded RCA; grafts patent. Code(s): R74.8 - ABNORMAL LEVELS OF OTHER SERUM ENZYMES (7) Fatty liver Code(s): K76.0 - FATTY (CHANGE OF) LIVER, NOT ELSEWHERE CLASSIFIED (8) Hyperlipidemia Assessment/Plan: statin; keep LDL < 70 mg/dl. Code(s): E78.5 - HYPERLIPIDEMIA, UNSPECIFIED (9) Hypertension Code(s): I10 - ESSENTIAL (PRIMARY) HYPERTENSION (10) Hypothyroidism Assessment/Plan: On synthroid; TSH WNL. Code(s): E03.9 - HYPOTHYROIDISM, UNSPECIFIED (11) NSVT (nonsustained ventricular tachycardia) Assessment/Plan: Continue metoprolol, Entresto. F/u ICD interrogation. Code(s): I47.2 - VENTRICULAR TACHYCARDIA (12) Sleep apnea Assessment/Plan: CPAP per celery cutter. Code(s): G47.30 - SLEEP APNEA, UNSPECIFIED (13) Status post THR (total hip replacement) Code(s): Z96.649 - PRESENCE OF UNSPECIFIED ARTIFICIAL HIP JOINT (14) Coronary artery disease Assessment/Plan: s/p ND s/p CABG 2004 at [facility]. s/p coronary angiogram 2015: failed attempt at opening totally occluded mid-RCA lesion; 60% stenosis of LAD did not require PCI. On clopidogrel (? allergy to ASA). As discussed with pt's interventionalist, Dr. Santillan, will reassess coronary arteries as outpatient (stress MIBI or coronary angiogram) when CHF is more stable, and if pt is potentilly able to take DAPT (?allergy to ASA; has had stents in the past). Code(s): I25.10 - ATHSCL HEART DISEASE OF [place] CORONARY ARTERY W/O ANG PCTRS (15) Noncompliance with therapeutic plan Code(s): Z91.11 - PATIENT'S NONCOMPLIANCE WITH DIETARY REGIMEN (16) Smokes cigarettes Assessment/Plan: restart nicotine patch Code(s): F17.210 - NICOTINE DEPENDENCE, CIGARETTES, UNCOMPLICATED (17) Chronic abdominal pain Assessment/Plan: no abdominal pain this admission, though admitted last week with discomfort thought due to anasarca (and post-cholecystectomy pain for the past year). Code(s): R10.9 - UNSPECIFIED ABDOMINAL PAIN; G89.29 - OTHER CHRONIC PAIN (18) Anemia Assessment/Plan: f/u drop in Hb. Code(s): D64.9 - ANEMIA, UNSPECIFIED
[2018-10-18 08:54] LABS: BILIRUBIN,TOTAL 1.6 mg/dL (0.2-1); CALCIUM 8.9 mg/dL (8.5-10.1); CREATININE 0.7 mg/dL (0.55-1.3); MAGNESIUM 1.5 mg/dL (1.8-2.4); PHOSPHOROUS 2.6 mg/dL (2.5-4.9); POTASSIUM 3.9 mmol/L (3.5-5.1); TOT PROT 6.5 g/dl (6.4-8.2)
[2018-10-18] MEDS ORDERED: MAGNESIUM SULF 50% (8.12 MEQ/2 ML-1 GM VIAL) IVPB ONE (09:30)
[2018-10-18] MEDS ORDERED: PT OWN MED DRAWER 7, Y5N ONE ×3 (09:44→21:34)
[2018-10-18] MEDS: NICOTINE 14 MG/24 HOURS TOPICAL PATCH TD SCH (10:46)
[2018-10-18] MEDS: FUROSEMIDE 40 MG/4 ML INJECTABLE VIAL IVPUSH SCH (10:46)
[2018-10-18] MEDS: CLOPIDOGREL BISULFATE 75 MG TABLET (FP) PO SCH (10:46)
[2018-10-18] MEDS: metoPROLOL SUCCINATE 25 MG TAB.SR.24H (FP) PO SCH (10:46)
[2018-10-18] MEDS: SACUBITRIL/VALSARTAN 24 MG-26 MG TABLET PO SCH ×2 (10:53→22:01)
--- NOTE | 2018-10-18 14:17 | PN ---
Teaching Attending Note Name of Resident: Onesimo Simmons ATTENDING PHYSICIAN STATEMENT I saw and evaluated the patient. I reviewed the resident's note and discussed the case with the resident. I agree with the resident's findings and plan as documented. SUBJECTIVE:states shes better and wants to go home. refused to answer other questions OBJECTIVE: Last Vital Signs Temp Pulse Resp BP Pulse Ox 97.9 F 83 18 117/60 95 10/18/18 07:00 10/18/18 07:00 10/18/18 07:00 10/18/18 07:00 10/18/18 01:54 General NAD, flat affect, avoids eye contact CV S1 S2 + Lungs CTA B/L no wheezing/rales/rhonchi, decreased at bases Abdomen soft + ansarca along the lower abdomen. no rebound or guarding Extremities + pitting edema B/L. refused full exam due to pain ASSESSMENT AND PLAN: 63yo F wtih PMH systolic CHF, afib, COPD, hypothyroid, DM and presented with LE edema and found to have mild tropinemia who was recently discharged earlier this week after being hospitalized for over a week for the same symptoms. 1. ACute on chronic systolic CHF-due to non compliance with meds and diet. on lasix 80mg IVP. her entresto and spirolatcone were both held on discharge due to LIANNA and hypotension. now BP is doing well. will d/w cardio about re-starting one by one as hemodynamics permit. daily weights, strict I&O, water restriction. 2. Tropinemia- Flat trend of troponins 0.11-0.21-0.21. likely demand. no CP. cardiac monitoring. no further workup at this time 3. CKD- recently had LIANNA likely due to medications and hypotension, which has resolved. will cont to monitor while on IV lasix and re-initation of heart failure therapy. 4. hypothyroid- cont LT4 5. DM- hold oral agents. iss and bgm 6. DVT ppx- lovenox 7. explained to patient that she would require continued monitoring and not ready for discharge. will need to sign out AMA if wants to leave which she verbalized understanding. willing to wait for evaluation by cardio
--- NOTE | 2018-10-18 15:18 | PN ---
Physical Exam: SUBJECTIVE: Patient seen and examined. Pt. states she came back to the hospital because of leg pain an abdominal pain that did not get better after discharge. Pt. still not compliant with smoking cessation. OBJECTIVE: Vital Signs Period Temp Pulse Resp BP Sys/Santoro Pulse Ox Last 24 Hr 96.8 F-98.6 F 56-88 18-24 106-136/53-84 95-100 GENERAL: The patient awake, alert and in no acute distress. HEAD: Normal with no signs of trauma. EYES: Eyes open ENT: Ears normal, nares patent, oropharynx clear without exudates, moist mucous membranes. LUNGS: Coarse breath sounds equal, clear to auscultation bilaterally, no wheezes , no crackles, no accessory muscle use. HEART: Regular rate and rhythm, S1, S2 without murmur ABDOMEN: obese, soft, diffuse tenderness to palaption of the abdomen, distended , normoactive bowel sounds EXTREMITIES: 2+ dorsal pedal pulses, warm, no calf tenderness, well-perfused, 2 + edema, generalized LE tenderness NEUROLOGICAL: Normal speech, gait not observed. PSYCH: Normal mood, normal affect. SKIN: Warm, dry, normal turgor, anasarca Laboratory Results - last 24 hr 10/17/18 10/17/18 10/18/18 16:05 22:26 07:19 WBC 4.4 RBC 3.53 L Hgb 9.8 L Hct 30.7 L MCV 87.0 MCH 27.8 MCHC 32.0 RDW 15.4 Plt Count 221 MPV 7.7 Absolute Neuts (auto) 3.0 Neutrophils % 69.8 Lymphocytes % 12.4 Monocytes % 17.3 H Eosinophils % 0.0 Basophils % 0.5 Nucleated RBC % 0 PT with INR INR Sodium Potassium Chloride Carbon Dioxide Anion Gap BUN Creatinine Est GFR (CKD-EPI)AfAm Est GFR (CKD-EPI)NonAf POC Glucometer 64 Random Glucose Calcium Phosphorus Magnesium Total Bilirubin AST ALT Alkaline Phosphatase Creatine Kinase 85 CK-MB (CK-2) 1.9 Troponin I 0.21 H Total Protein Albumin 10/18/18 10/18/18 10/18/18 07:19 07:19 12:29 WBC RBC Hgb Hct MCV MCH MCHC RDW Plt Count MPV Absolute Neuts (auto) Neutrophils % Lymphocytes % Monocytes % Eosinophils % Basophils % Nucleated RBC % PT with INR 16.80 H INR 1.42 H Sodium 140 Potassium 3.9 Chloride 99 Carbon Dioxide 33 H Anion Gap 7 L BUN 25 H Creatinine 0.7 Est GFR (CKD-EPI)AfAm 105.38 Est GFR (CKD-EPI)NonAf 90.92 POC Glucometer 95 Random Glucose 75 Calcium 8.9 Phosphorus 2.6 Magnesium 1.5 L Total Bilirubin 1.6 H AST 20 ALT 19 Alkaline Phosphatase 81 Creatine Kinase 84 CK-MB (CK-2) Troponin I 0.21 H Total Protein 6.5 Albumin 3.0 L Active Medications Home Medications Medication Instructions Recorded Clopidogrel Bisulfate [Plavix -] 75 mg PO DAILY #30 tablet 08/02/17 Levothyroxine [Synthroid -] 75 mcg PO DAILY@0700 30 Days #30 08/02/17 tablet Furosemide [Lasix] 80 mg PO DAILY #30 tablet 09/27/18 Metoprolol Succinate [Toprol XL -] 75 mg PO DAILY #90 tab.sr.24h 10/14/18 Furosemide [Lasix -] 40 mg PO DAILY #6 tablet 10/17/18 Current Medications Clopidogrel Bisulfate (Plavix -) 75 mg PO DAILY [facility] Last Admin: 10/18/18 10:46 Dose: 75 mg Furosemide (Lasix Injection -) 80 mg IVPUSH DAILY [facility] Last Admin: 10/18/18 10:46 Dose: 80 mg Heparin Sodium (Porcine) (Heparin -) 5,000 unit SQ TID [facility] Last Admin: 10/18/18 14:14 Dose: Not Given Levothyroxine Sodium (Synthroid -) 75 mcg PO DAILY@0700 [facility] Last Admin: 10/18/18 06:32 Dose: 75 mcg Metoprolol Succinate (Toprol Xl -) 75 mg PO DAILY [facility] Last Admin: 10/18/18 10:46 Dose: 75 mg Nicotine (Nicoderm Patch -) 14 mg TD DAILY [facility] Last Admin: 10/18/18 10:46 Dose: 14 mg Sacubitril/Valsartan (Entresto 24 Mg-26 Mg Tablet) 1 tab PO BID [facility] Last Admin: 10/18/18 10:53 Dose: 1 tab ASSESSMENT/PLAN: Patient is a 63 y.o. F w/ PMHx. of CHFrEF (EF 25%) s/p ACID, HTN, DM, CAD s/p 2 stents, and hypothyroidism admitted elevated and rising troponins. #CHFrEF with anasarca-chronic baseline on 5 L NC at home Lasix 80IV given in ER last Echo: LV severely dilated, LV severely reduced, global hypokinesis, EF 25 % patient has an ACID monitor I's and O's CXR: no increase in congestion Strict Is & Os Daily weights low salt diet cardiac monitoring cardiology consult( Dr. Cage) ---> f/u ICD interrogation results restarted entresto, will consider restarting aldactone in AM if BP and Creatinine permits. #Abdominal pain 2/2 anasarca-chronic 10/03CT C/A/P: No PE, cardiomegaly, L moderate pleural effusion, hepatomegaly, ascites, fibroid uterus, dilated and tortuous R. ovarian vein, subcutaneous edema consistent with anasarca, abdominal aorta is ectatic and heavily calcified w/o dilatation. 10/03 Transvaginal US: scattered calcifications in uterus c/w leiomyomata, no discrete masses identified, moderate ascites in pelvis, no free fluid, limited exam as endometrium and ovaries cannot be visualized. 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 c/w Heparin SQ Visit type - Emergency Visit Emergency Visit: Yes ED Registration Date: 10/17/18 Care time: The patient presented to the Emergency Department on the above date and was hospitalized for further evaluation of their emergent condition. - New Patient This patient is new to me today: No - Critical Care Critical Care patient: No - Discharge Referral Referred to [facility] Med P.C.: No
--- NOTE | 2018-10-18 15:18 | EKG ---
Test Reason : Blood Pressure : / mmHG Vent. Rate : 066 BPM Atrial Rate : 066 BPM P-R Int : 224 ms QRS Dur : 134 ms QT Int : 446 ms P-R-T Axes : 076 119 -09 degrees QTc Int : 467 ms SINUS RHYTHM WITH 1ST DEGREE A-V BLOCK RIGHT AXIS DEVIATION NON-SPECIFIC INTRA-VENTRICULAR CONDUCTION BLOCK CANNOT RULE OUT SEPTAL INFARCT (CITED ON OR BEFORE 22-SEP-2018) NONSPECIFIC ST ABNORMALITY ABNORMAL ECG Confirmed by SUDEEP BURTON MD ([id number]) on 10/18/2018 3:18:20 PM Referred By: Confirmed By:SUDEEP BURTON MD
--- NOTE | 2018-10-19 03:27 | PN ---
Progress Note, Physician Chief Complaint: Pt denies chest pain or dyspnea; less pain in legs, though still swollen. History of Present Illness: The patient is a 63 yr old black woman with a PMH of severe systolic CHF, ICD ( [employer]; since 2014) HTN, HLD, CAD s/p [place]-->CABG 2003 at [facility], obesity, anxiety/depression, hypothyroidism, long-term ad current cigarette smoker, who presents to the ER for increased bilateral leg swelling and pain in her feet that shoot up into her back and neck. Patient states she was discharged for CHF exacerbation 2 days ago during which time she had her metoprolol and furosemide modified. Patient has not yet followed up with her PCP or continuous improvement specialist. Patient is on 5L of home O2, denies worsening sob, fever, chills, sob, N/V/D/C, or urinary symptoms. Allergies: aspirin PCP: Dr. Ferrer Cardio: Dr. Cage - Current Medication List Current Medications: Active Medications Clopidogrel Bisulfate (Plavix -) 75 mg PO DAILY [facility] Last Admin: 10/18/18 10:46 Dose: 75 mg Furosemide (Lasix Injection -) 80 mg IVPUSH DAILY [facility] Last Admin: 10/18/18 10:46 Dose: 80 mg Heparin Sodium (Porcine) (Heparin -) 5,000 unit SQ TID [facility] Last Admin: 10/18/18 22:01 Dose: 5,000 unit Levothyroxine Sodium (Synthroid -) 75 mcg PO DAILY@0700 [facility] Last Admin: 10/18/18 06:32 Dose: 75 mcg Metoprolol Succinate (Toprol Xl -) 75 mg PO DAILY [facility] Last Admin: 10/18/18 10:46 Dose: 75 mg Nicotine (Nicoderm Patch -) 14 mg TD DAILY [facility] Last Admin: 10/18/18 10:46 Dose: 14 mg Sacubitril/Valsartan (Entresto 24 Mg-26 Mg Tablet) 1 tab PO BID [facility] Last Admin: 10/18/18 22:01 Dose: 1 tab - Objective Vital Signs: Vital Signs Temperature 98.6 F 10/19/18 02:00 Pulse Rate 75 10/19/18 02:00 Respiratory Rate 21 H 10/19/18 02:00 Blood Pressure 125/69 10/19/18 02:00 O2 Sat by Pulse Oximetry (%) 94 L 10/18/18 21:00 Constitutional: Yes: Calm, Obese Eyes: Yes: WNL HENT: Yes: WNL Neck: Yes: WNL Cardiovascular: Yes: S1, S2 (split), S4 Respiratory: Yes: Regular Gastrointestinal: Yes: Soft, Abdomen, Obese ...Rectal Exam: Yes: Deferred Genitourinary: No: Anuria Breast(s): Yes: WNL Musculoskeletal: Yes: Joint Stiffness, Joint Swelling, Muscle Weakness Extremities: Yes: Cool Edema: Yes Edema: LLE: 2+, RLE: 2+ Peripheral Pulses WNL: Yes Integumentary: Yes: Venous Stasis Changes Neurological: Yes: Alert, Oriented, Unsteady Gait Psychiatric: Yes: Alert, Oriented Labs: CBC, BMP 10/18/18 07:19 10/18/18 07:19 INR, PTT INR 1.42 (0.83-1.09) H 10/18/18 07:19 Abnormal Lab Results 10/18/18 10/18/18 10/18/18 07:19 07:19 07:19 RBC 3.53 L Hgb 9.8 L Hct 30.7 L Monocytes % 17.3 H PT with INR 16.80 H INR 1.42 H Carbon Dioxide 33 H Anion Gap 7 L BUN 25 H Magnesium 1.5 L Total Bilirubin 1.6 H Troponin I 0.21 H Albumin 3.0 L - ....Imaging Chest X-ray: Image Reviewed Problem List - Problems (1) Obesity Code(s): E66.9 - OBESITY, UNSPECIFIED (2) AICD (automatic cardioverter/defibrillator) present Code(s): Z95.810 - PRESENCE OF AUTOMATIC (IMPLANTABLE) CARDIAC DEFIBRILLATOR (3) Acute on chronic systolic and diastolic heart failure, NYHA class 3 Assessment/Plan: Restarted Entresto. Continue metoprolol. On furosemide IVP 80 mg daily; Retry spironolactone if pt tolerates above; f/u BUN/Cr and electrolytes. Is and Os; daily weight. Code(s): I50.43 - ACUTE ON CHRONIC COMBINED SYSTOLIC AND DIASTOLIC HRT FAIL (4) Anasarca Code(s): R60.1 - GENERALIZED EDEMA (5) Anxiety and depression Assessment/Plan: exacerbated upon of her in 2007 Pt resists counseling. Code(s): F41.9 - ANXIETY DISORDER, UNSPECIFIED; F32.9 - MAJOR DEPRESSIVE DISORDER, SINGLE EPISODE, UNSPECIFIED (6) Elevated troponin Assessment/Plan: Chronic mild TNI elevation (CK WNL this admission), with acute/chronic severe systolic CHF a major contributor. Last coronary angiogram 2014; no PCI required of LAD lesion; failed attempt at opening totally occluded RCA; grafts patent. Code(s): R74.8 - ABNORMAL LEVELS OF OTHER SERUM ENZYMES (7) Fatty liver Code(s): K76.0 - FATTY (CHANGE OF) LIVER, NOT ELSEWHERE CLASSIFIED (8) Hyperlipidemia Assessment/Plan: statin; keep LDL < 70 mg/dl. Code(s): E78.5 - HYPERLIPIDEMIA, UNSPECIFIED (9) Hypertension Code(s): I10 - ESSENTIAL (PRIMARY) HYPERTENSION (10) Hypothyroidism Code(s): E03.9 - HYPOTHYROIDISM, UNSPECIFIED (11) NSVT (nonsustained ventricular tachycardia) Code(s): I47.2 - VENTRICULAR TACHYCARDIA (12) Sleep apnea Code(s): G47.30 - SLEEP APNEA, UNSPECIFIED (13) Status post THR (total hip replacement) Code(s): Z96.649 - PRESENCE OF UNSPECIFIED ARTIFICIAL HIP JOINT (14) Coronary artery disease Code(s): I25.10 - ATHSCL HEART DISEASE OF [place] CORONARY ARTERY W/O ANG PCTRS (15) Noncompliance with therapeutic plan Code(s): Z91.11 - PATIENT'S NONCOMPLIANCE WITH DIETARY REGIMEN (16) Smokes cigarettes Code(s): F17.210 - NICOTINE DEPENDENCE, CIGARETTES, UNCOMPLICATED (17) Chronic abdominal pain Code(s): R10.9 - UNSPECIFIED ABDOMINAL PAIN; G89.29 - OTHER CHRONIC PAIN (18) Anemia Code(s): D64.9 - ANEMIA, UNSPECIFIED
[2018-10-19] MEDS: HEPARIN NA (PORCINE) 5,000 UNITS/ML 1ML VIAL SQ SCH ×3 (05:21→21:18)
[2018-10-19] MEDS: LEVOTHYROXINE NA 75 MCG TABLET (FP) PO SCH (06:06)
[2018-10-19] MEDS ORDERED: PT OWN MED DRAWER 7, Y5N ONE ×2 (08:57→20:44)
[2018-10-19] MEDS: metoPROLOL SUCCINATE 25 MG TAB.SR.24H (FP) PO SCH (09:22)
[2018-10-19] MEDS: CLOPIDOGREL BISULFATE 75 MG TABLET (FP) PO SCH (09:22)
[2018-10-19] MEDS: FUROSEMIDE 40 MG/4 ML INJECTABLE VIAL IVPUSH SCH (09:22)
[2018-10-19] MEDS: NICOTINE 14 MG/24 HOURS TOPICAL PATCH TD SCH ×2 (09:22→09:30)
[2018-10-19] MEDS: SACUBITRIL/VALSARTAN 24 MG-26 MG TABLET PO SCH ×2 (09:23→21:16)
--- NOTE | 2018-10-19 11:30 | PN ---
Progress Note (short form) - Note Progress Note: c/o throat pain that started this AM. states breathing is fine. denies Cp, SOB, fever, chills, N/V/C/D Current Medications Generic Name Dose Route Start Last Admin Trade Name Kamilah PRN Reason Stop Dose Admin Clopidogrel Bisulfate 75 mg 10/18/18 10:00 10/19/18 09:22 Plavix - PO 75 mg DAILY RINA Administration Furosemide 80 mg 10/18/18 10:00 10/19/18 09:22 Lasix Injection - IVPUSH 80 mg DAILY RINA Administration Heparin Sodium (Porcine) 5,000 unit 10/17/18 22:00 10/19/18 05:21 Heparin - SQ Not Given TID RINA Levothyroxine Sodium 75 mcg 10/18/18 07:00 10/19/18 06:06 Synthroid - PO 75 mcg DAILY@0700 RINA Administration Metoprolol Succinate 75 mg 10/18/18 10:00 10/19/18 09:22 Toprol Xl - PO 75 mg DAILY RINA Administration Nicotine 14 mg 10/18/18 10:00 10/19/18 09:30 Nicoderm Patch - TD Not Given DAILY RINA Sacubitril/Valsartan 1 tab 10/18/18 10:00 10/19/18 09:23 Entresto 24 Mg-26 Mg Tablet PO 1 tab BID RINA Administration Last Vital Signs Temp Pulse Resp BP Pulse Ox 98.5 F 80 24 H 117/55 L 95 10/19/18 10:00 10/19/18 10:00 10/19/18 10:00 10/19/18 10:00 10/19/18 09:00 Intake & Output 10/16/18 10/17/18 10/18/18 10/19/18 23:59 23:59 23:59 23:59 Intake Total 255 555 10 Balance 255 555 10 Weight 117 lb 217 lb 6.4 oz General NAD, flat affect, avoids eye contact HEENT refuses to open mouth large enough to visualize pharynx CV S1 S2 + Lungs CTA B/L no wheezing/rales/rhonchi, decreased at bases Abdomen soft + ansarca along the lower abdomen. no rebound or guarding Extremities + pitting edema B/L. refused full exam due to pain CBCD WBC 4.4 K/mm3 (4.0-10.0) 10/18/18 07:19 RBC 3.53 M/mm3 (3.60-5.2) L 10/18/18 07:19 Hgb 9.8 GM/dL (10.7-15.3) L 10/18/18 07:19 Hct 30.7 % (32.4-45.2) L 10/18/18 07:19 MCV 87.0 fl (80-96) 10/18/18 07:19 MCHC 32.0 g/dl (32.0-36.0) 10/18/18 07:19 RDW 15.4 % (11.6-15.6) 10/18/18 07:19 Plt Count 221 K/MM3 (134-434) 10/18/18 07:19 MPV 7.7 fl (7.5-11.1) 10/18/18 07:19 CMP Sodium 140 mmol/L (136-145) 10/18/18 07:19 Potassium 3.9 mmol/L (3.5-5.1) 10/18/18 07:19 Chloride 99 mmol/L (98-107) 10/18/18 07:19 Carbon Dioxide 33 mmol/L (21-32) H 10/18/18 07:19 Anion Gap 7 MMOL/L (8-16) L 10/18/18 07:19 BUN 25 mg/dL (7-18) H 10/18/18 07:19 Creatinine 0.7 mg/dL (0.55-1.3) 10/18/18 07:19 Calcium 8.9 mg/dL (8.5-10.1) 10/18/18 07:19 Total Bilirubin 1.6 mg/dL (0.2-1) H 10/18/18 07:19 AST 20 U/L (15-37) 10/18/18 07:19 ALT 19 U/L (13-61) 10/18/18 07:19 Alkaline Phosphatase 81 U/L (45-117) 10/18/18 07:19 Total Protein 6.5 g/dl (6.4-8.2) 10/18/18 07:19 Albumin 3.0 g/dl (3.4-5.0) L 10/18/18 07:19 ASSESSMENT AND PLAN: 63yo F wtih PMH systolic CHF, afib, COPD, hypothyroid, DM and presented with LE edema and found to have mild tropinemia who was recently discharged earlier this week after being hospitalized for over a week for the same symptoms. 1. ACute on chronic systolic CHF-due to non compliance with meds and diet. on lasix 80mg IVP. clinically appears stable but volume overloaded. refuses to be weighed daily. entresto re-started yesterday and will start spirolactone as tolerated. monitro closely both BP and kidney function. daily weights, strict I& O, water restriction. 2. Throat pain- refused proper exam. will attempt to get swab if pt will allow. ice cream for symptomatic relief 3. Tropinemia- Flat trend of troponins 0.11-0.21-0.21. likely demand. no CP. cardiac monitoring. no further workup at this time 4. CKD- recently had LIANNA likely due to medications and hypotension, which has resolved. will cont to monitor while on IV lasix and re-initation of heart failure therapy. 5. hypothyroid- cont LT4 6. DM- hold oral agents. iss and bgm 7. DVT ppx- hep Visit type - Emergency Visit Emergency Visit: Yes ED Registration Date: 10/17/18 Care time: The patient presented to the Emergency Department on the above date and was hospitalized for further evaluation of their emergent condition. - New Patient This patient is new to me today: No - Critical Care Critical Care patient: No - Discharge Referral Referred to [facility] Med P.C.: No
[2018-10-19] MEDS ORDERED: oxyCODONE HCL 5 MG TABLET PO ONE (13:11)
[2018-10-19 13:27] LABS: CALCIUM 8.5 mg/dL (8.5-10.1); CREATININE 0.7 mg/dL (0.55-1.3); POTASSIUM 3.1 mmol/L (3.5-5.1)
[2018-10-19] MEDS: ACETAMINOPHEN 325 MG TABLET (FP) PO PRN (13:41)
[2018-10-19] MEDS: SPIRONOLACTONE 25 MG TABLET (FP) PO SCH (13:42)
--- NOTE | 2018-10-19 17:14 | PN ---
Progress Note, Physician History of Present Illness: The patient is a 63 yr old black woman with a PMH of severe systolic CHF, ICD ( [employer]; since 2014) HTN, HLD, CAD s/p [place]-->CABG 2003 at [facility], obesity, anxiety/depression, hypothyroidism, long-term ad current cigarette smoker, who presents to the ER for increased bilateral leg swelling and pain in her feet that shoot up into her back and neck. Pt denies chest pain or dyspnea; less pain and LE edema with diuresis. Allergies: aspirin PCP: Dr. Ferrer Cardio: Dr. Cage - Current Medication List Current Medications: Active Medications Acetaminophen (Tylenol -) 650 mg PO Q6H PRN PRN Reason: pain Last Admin: 10/19/18 13:41 Dose: 650 mg Clopidogrel Bisulfate (Plavix -) 75 mg PO DAILY [facility] Last Admin: 10/19/18 09:22 Dose: 75 mg Furosemide (Lasix Injection -) 80 mg IVPUSH DAILY [facility] Last Admin: 10/19/18 09:22 Dose: 80 mg Heparin Sodium (Porcine) (Heparin -) 5,000 unit SQ TID [facility] Last Admin: 10/19/18 13:42 Dose: Not Given Levothyroxine Sodium (Synthroid -) 75 mcg PO DAILY@0700 [facility] Last Admin: 10/19/18 06:06 Dose: 75 mcg Metoprolol Succinate (Toprol Xl -) 75 mg PO DAILY [facility] Last Admin: 10/19/18 09:22 Dose: 75 mg Nicotine (Nicoderm Patch -) 14 mg TD DAILY [facility] Last Admin: 10/19/18 09:30 Dose: Not Given Sacubitril/Valsartan (Entresto 24 Mg-26 Mg Tablet) 1 tab PO BID [facility] Last Admin: 10/19/18 09:23 Dose: 1 tab Spironolactone (Aldactone -) 25 mg PO DAILY [facility] Last Admin: 10/19/18 13:42 Dose: 25 mg - Objective Vital Signs: Vital Signs Temperature 97.7 F 10/19/18 14:00 Pulse Rate 72 10/19/18 14:00 Respiratory Rate 22 H 10/19/18 14:00 Blood Pressure 109/65 10/19/18 14:00 O2 Sat by Pulse Oximetry (%) 96 10/19/18 17:00 Constitutional: Yes: No Distress, Calm Neck: Yes: Supple Cardiovascular: Yes: Regular Rate and Rhythm Respiratory: Yes: Regular, Diminished, On Nasal O2 Gastrointestinal: Yes: Soft, Hypoactive Bowel Sounds Edema: Yes Edema: LLE: 1+, RLE: 1+ Labs: CBC, BMP 10/18/18 07:19 10/19/18 12:35 INR, PTT INR 1.42 (0.83-1.09) H 10/18/18 07:19 Assessment/Plan - Problems (1) Obesity Code(s): E66.9 - OBESITY, UNSPECIFIED (2) AICD (automatic cardioverter/defibrillator) present Code(s): Z95.810 - PRESENCE OF AUTOMATIC (IMPLANTABLE) CARDIAC DEFIBRILLATOR (3) Acute on chronic systolic and diastolic heart failure, NYHA class 3 Assessment/Plan: Restarted Entresto bid Continue metoprolol XL 75 qd On furosemide IVP 80 mg daily; continue spironolactone 25 qd; f/u BUN/Cr and electrolytes, replete K Is and Os; daily weight. Code(s): I50.43 - ACUTE ON CHRONIC COMBINED SYSTOLIC AND DIASTOLIC HRT FAIL (4) Anasarca Code(s): R60.1 - GENERALIZED EDEMA (5) Anxiety and depression Assessment/Plan: exacerbated upon of her in 2007 Pt resists counseling. Code(s): F41.9 - ANXIETY DISORDER, UNSPECIFIED; F32.9 - MAJOR DEPRESSIVE DISORDER, SINGLE EPISODE, UNSPECIFIED (6) Elevated troponin Assessment/Plan: Chronic mild TNI elevation (CK WNL this admission), with acute/chronic severe systolic CHF a major contributor. Last coronary angiogram 2014; no PCI required of LAD lesion; failed attempt at opening totally occluded RCA; grafts patent on Plavix 75 qd Code(s): R74.8 - ABNORMAL LEVELS OF OTHER SERUM ENZYMES (7) Fatty liver Code(s): K76.0 - FATTY (CHANGE OF) LIVER, NOT ELSEWHERE CLASSIFIED (8) Hyperlipidemia Assessment/Plan: statin; keep LDL < 70 mg/dl. Code(s): E78.5 - HYPERLIPIDEMIA, UNSPECIFIED (9) Hypertension Code(s): I10 - ESSENTIAL (PRIMARY) HYPERTENSION (10) Hypothyroidism Code(s): E03.9 - HYPOTHYROIDISM, UNSPECIFIED (11) NSVT (nonsustained ventricular tachycardia) Code(s): I47.2 - VENTRICULAR TACHYCARDIA (12) Sleep apnea Code(s): G47.30 - SLEEP APNEA, UNSPECIFIED (13) Status post THR (total hip replacement) Code(s): Z96.649 - PRESENCE OF UNSPECIFIED ARTIFICIAL HIP JOINT (14) Coronary artery disease Code(s): I25.10 - ATHSCL HEART DISEASE OF [place] CORONARY ARTERY W/O ANG PCTRS (15) Noncompliance with therapeutic plan Code(s): Z91.11 - PATIENT'S NONCOMPLIANCE WITH DIETARY REGIMEN (16) Smokes cigarettes Code(s): F17.210 - NICOTINE DEPENDENCE, CIGARETTES, UNCOMPLICATED (17) Chronic abdominal pain Code(s): R10.9 - UNSPECIFIED ABDOMINAL PAIN; G89.29 - OTHER CHRONIC PAIN (18) Anemia Code(s): D64.9 - ANEMIA, UNSPECIFIED
[2018-10-19] MEDS ORDERED: POTASSIUM CHLORIDE ORAL LIQUID 20 MEQ/15 ML PO ONE (17:22)
[2018-10-20] MEDS: HEPARIN NA (PORCINE) 5,000 UNITS/ML 1ML VIAL SQ SCH ×3 (06:00→22:41)
[2018-10-20] MEDS: LEVOTHYROXINE NA 75 MCG TABLET (FP) PO SCH (06:01)
[2018-10-20 06:38] LABS: CALCIUM 8.5 mg/dL (8.5-10.1); CREATININE 0.8 mg/dL (0.55-1.3); MAGNESIUM 1.7 mg/dL (1.8-2.4); POTASSIUM 3.9 mmol/L (3.5-5.1)
[2018-10-20] MEDS ORDERED: MAGNESIUM SULF 50% (8.12 MEQ/2 ML-1 GM VIAL) IVPB ONE ×2 (07:14→08:30)
[2018-10-20] MEDS ORDERED: PT OWN MED DRAWER 7, Y5N ONE ×2 (09:08→21:08)
[2018-10-20] MEDS: metoPROLOL SUCCINATE 25 MG TAB.SR.24H (FP) PO SCH (09:48)
[2018-10-20] MEDS: CLOPIDOGREL BISULFATE 75 MG TABLET (FP) PO SCH (09:48)
[2018-10-20] MEDS: NICOTINE 14 MG/24 HOURS TOPICAL PATCH TD SCH (09:48)
[2018-10-20] MEDS: SPIRONOLACTONE 25 MG TABLET (FP) PO SCH (09:48)
[2018-10-20] MEDS: SACUBITRIL/VALSARTAN 24 MG-26 MG TABLET PO SCH ×2 (09:49→22:41)
[2018-10-20] MEDS: FUROSEMIDE 40 MG/4 ML INJECTABLE VIAL IVPUSH SCH (09:49)
--- NOTE | 2018-10-20 10:36 | PN ---
Progress Note, Physician History of Present Illness: The patient is a 63 yr old black woman with a PMH of severe systolic CHF, ICD ( [employer]; since 2014) HTN, HLD, CAD s/p [place]-->CABG 2003 at [facility], obesity, anxiety/depression, hypothyroidism, long-term ad current cigarette smoker, who presents to the ER for increased bilateral leg swelling and pain in her feet that shoot up into her back and neck. Pt denies chest pain or dyspnea; less pain and LE edema with diuresis. Allergies: aspirin PCP: Dr. Ferrer Cardio: Dr. Cage - Current Medication List Current Medications: Active Medications Acetaminophen (Tylenol -) 650 mg PO Q6H PRN PRN Reason: pain Last Admin: 10/19/18 13:41 Dose: 650 mg Clopidogrel Bisulfate (Plavix -) 75 mg PO DAILY [facility] Last Admin: 10/20/18 09:48 Dose: 75 mg Furosemide (Lasix Injection -) 80 mg IVPUSH DAILY [facility] Last Admin: 10/20/18 09:49 Dose: 80 mg Heparin Sodium (Porcine) (Heparin -) 5,000 unit SQ TID [facility] Last Admin: 10/20/18 06:00 Dose: Not Given Levothyroxine Sodium (Synthroid -) 75 mcg PO DAILY@0700 [facility] Last Admin: 10/20/18 06:01 Dose: 75 mcg Metoprolol Succinate (Toprol Xl -) 75 mg PO DAILY [facility] Last Admin: 10/20/18 09:48 Dose: 75 mg Nicotine (Nicoderm Patch -) 14 mg TD DAILY [facility] Last Admin: 10/20/18 09:48 Dose: Not Given Sacubitril/Valsartan (Entresto 24 Mg-26 Mg Tablet) 1 tab PO BID [facility] Last Admin: 10/20/18 09:49 Dose: 1 tab Spironolactone (Aldactone -) 25 mg PO DAILY [facility] Last Admin: 10/20/18 09:48 Dose: 25 mg - Objective Vital Signs: Vital Signs Temperature 97.5 F L 10/19/18 20:31 Pulse Rate 76 10/20/18 09:44 Respiratory Rate 18 10/20/18 09:44 Blood Pressure 101/68 10/20/18 09:44 O2 Sat by Pulse Oximetry (%) 95 10/20/18 07:53 Constitutional: Yes: No Distress, Calm, Thin Neck: Yes: Supple Cardiovascular: Yes: Regular Rate and Rhythm Respiratory: Yes: Regular, Diminished Gastrointestinal: Yes: Normal Bowel Sounds, Soft Edema: Yes Edema: LLE: 1+, RLE: 1+ Labs: CBC, BMP 10/18/18 07:19 10/20/18 05:30 INR, PTT INR 1.42 (0.83-1.09) H 10/18/18 07:19 - ....Imaging EKG: Report Reviewed (Tele: NSR) Assessment/Plan - Problems (1) Obesity Code(s): E66.9 - OBESITY, UNSPECIFIED (2) AICD (automatic cardioverter/defibrillator) present Code(s): Z95.810 - PRESENCE OF AUTOMATIC (IMPLANTABLE) CARDIAC DEFIBRILLATOR (3) Acute on chronic systolic and diastolic heart failure, NYHA class 3 Assessment/Plan: Restarted Entresto / bid Continue metoprolol XL 75 qd On furosemide IVP 80 mg daily; continue spironolactone 25 qd; f/u BUN/Cr and electrolytes, replete Mg Is and Os; daily weight. Code(s): I50.43 - ACUTE ON CHRONIC COMBINED SYSTOLIC AND DIASTOLIC HRT FAIL (4) Anasarca Code(s): R60.1 - GENERALIZED EDEMA (5) Anxiety and depression Assessment/Plan: exacerbated upon of her in 2007 Pt resists counseling. Code(s): F41.9 - ANXIETY DISORDER, UNSPECIFIED; F32.9 - MAJOR DEPRESSIVE DISORDER, SINGLE EPISODE, UNSPECIFIED (6) Elevated troponin Assessment/Plan: Chronic mild TNI elevation (CK WNL this admission), with acute/chronic severe systolic CHF a major contributor. Last coronary angiogram 2014; no PCI required of LAD lesion; failed attempt at opening totally occluded RCA; grafts patent on Plavix 75 qd Code(s): R74.8 - ABNORMAL LEVELS OF OTHER SERUM ENZYMES (7) Fatty liver Code(s): K76.0 - FATTY (CHANGE OF) LIVER, NOT ELSEWHERE CLASSIFIED (8) Hyperlipidemia Assessment/Plan: statin; keep LDL < 70 mg/dl. Code(s): E78.5 - HYPERLIPIDEMIA, UNSPECIFIED (9) Hypertension Code(s): I10 - ESSENTIAL (PRIMARY) HYPERTENSION (10) Hypothyroidism Code(s): E03.9 - HYPOTHYROIDISM, UNSPECIFIED (11) NSVT (nonsustained ventricular tachycardia) Code(s): I47.2 - VENTRICULAR TACHYCARDIA (12) Sleep apnea Code(s): G47.30 - SLEEP APNEA, UNSPECIFIED (13) Status post THR (total hip replacement) Code(s): Z96.649 - PRESENCE OF UNSPECIFIED ARTIFICIAL HIP JOINT (14) Coronary artery disease Code(s): I25.10 - ATHSCL HEART DISEASE OF [place] CORONARY ARTERY W/O ANG PCTRS (15) Noncompliance with therapeutic plan Code(s): Z91.11 - PATIENT'S NONCOMPLIANCE WITH DIETARY REGIMEN (16) Smokes cigarettes Code(s): F17.210 - NICOTINE DEPENDENCE, CIGARETTES, UNCOMPLICATED (17) Chronic abdominal pain Code(s): R10.9 - UNSPECIFIED ABDOMINAL PAIN; G89.29 - OTHER CHRONIC PAIN (18) Anemia Code(s): D64.9 - ANEMIA, UNSPECIFIED
--- NOTE | 2018-10-20 10:37 | PN ---
Teaching Attending Note Name of Resident: Anabela Levine ATTENDING PHYSICIAN STATEMENT I saw and evaluated the patient. I reviewed the resident's note and discussed the case with the resident. I agree with the resident's findings and plan as documented. SUBJECTIVE: Sleepy today as she did not get much sleep last night due to noisy roomate as per patient. Some improvement in SOB. No cough/sputum/hemotysis. No fever/chills. OBJECTIVE: Afebrile, Hemodynamically Stable. Last Vital Signs Temp Pulse Resp BP Pulse Ox 97.5 F L 76 18 101/68 95 10/19/18 20:31 10/20/18 09:44 10/20/18 09:44 10/20/18 09:44 10/20/18 07:53 Heart - S1, S2, RRR Lungs - decreased air entry at bases Abdomen - Distension. Mild generalized tenderness. Bowel Sounds normal. Extremities - bilateral pitting LE edema + Laboratory Results - last 24 hr 10/19/18 10/19/18 10/19/18 11:27 12:35 16:48 Sodium 140 Potassium 3.1 L Chloride 99 Carbon Dioxide 34 H Anion Gap 7 L BUN 21 H Creatinine 0.7 Est GFR (CKD-EPI)AfAm 105.38 Est GFR (CKD-EPI)NonAf 90.92 POC Glucometer 111 98 Random Glucose 119 H Calcium 8.5 Magnesium 10/19/18 10/20/18 10/20/18 21:22 05:30 05:57 Sodium 136 Potassium 3.9 Chloride 97 L Carbon Dioxide 31 Anion Gap 8 BUN 24 H Creatinine 0.8 Est GFR (CKD-EPI)AfAm 89.67 Est GFR (CKD-EPI)NonAf 77.37 POC Glucometer 103 81 Random Glucose 81 Calcium 8.5 Magnesium 1.7 L Current Medications Generic Name Dose Route Start Last Admin Trade Name Freq PRN Reason Stop Dose Admin Acetaminophen 650 mg 10/19/18 13:11 10/19/18 13:41 Tylenol - PO 650 mg Q6H PRN Administration pain Clopidogrel Bisulfate 75 mg 10/18/18 10:00 10/20/18 09:48 Plavix - PO 75 mg DAILY [facility] Administration Furosemide 80 mg 10/18/18 10:00 10/20/18 09:49 Lasix Injection - IVPUSH 80 mg DAILY [facility] Administration Heparin Sodium (Porcine) 5,000 unit 10/17/18 22:00 10/20/18 06:00 Heparin - SQ Not Given TID [facility] Levothyroxine Sodium 75 mcg 10/18/18 07:00 10/20/18 06:01 Synthroid - PO 75 mcg DAILY@0700 [facility] Administration Magnesium Oxide 800 mg 10/20/18 10:38 Mag-Ox - PO 10/20/18 10:39 ONCE ONE Metoprolol Succinate 75 mg 10/18/18 10:00 10/20/18 09:48 Toprol Xl - PO 75 mg DAILY [facility] Administration Nicotine 14 mg 10/18/18 10:00 10/20/18 09:48 Nicoderm Patch - TD Not Given DAILY [facility] Sacubitril/Valsartan 1 tab 10/18/18 10:00 10/20/18 09:49 Entresto 24 Mg-26 Mg Tablet PO 1 tab BID [facility] Administration Spironolactone 25 mg 10/19/18 13:15 10/20/18 09:48 Aldactone - PO 25 mg DAILY [facility] Administration ASSESSMENT AND PLAN: 63 year old female smoker with history of Chronic Systolic CHF, CAD (s/p IN x 2 , s/p CABG, s/p 2x stents), CRF sec to COPD (on 2L O2 at home), Hypothyroidism, DM 2, recently discharged after inpatient treatment for CHF decompensation, presented again with increasing LE edema. 1. Acute on Chronic systolic CHF decompensation - secondary to likely medication non-compliance Echo 09/25/18 - severe Global hypokinesesis of LV and severe MR/TR. Lasix 80mg IVP daily as per Cardio. Continue Entresto but hold Spirinolactone due to borderline BP and tendency to develop ATN due to prolonged hypotension. Cardiology following. 2. Troponin Egression - chronic - likely sec to dilated cardiomyopathy, +/- demand due to CHF decompensation. No chest pain. Further management as per Cardio. 3. CKD 3 - monitor to ensure no devlopment of Cardiorenal Syndrome/ATN due to hypotensive episodes. 4. Hypomagnesemia - repleted. 5. Uterine Fibroids - no blood loss. for out-patient Gynecology follow up. 6. Hypothyroidism - Continue Levothyroxine. 7. Hx of DM 2 - A1C 5.8. Appears diet controlled. 8. CAD (s/p IN x 2, s/p CABG, s/p 2x stents) - Continue with Plavix, BB, ARB 9. CRF sec to COPD - on Home O2 - Continue. Required BiPAP at night on last admission due to CO2 narcosis. Will resume BiPAP. For outpatient pulm follow up and sleep study. 10. HTN - Continue Metoprolol, Spironolactone, Entresto as per Cardiology, however, BP borderline low. Recommend holding Spironolactone if BP does not allow. DVT Px - Heparin SQ
[2018-10-20] MEDS ORDERED: MAGNESIUM OXIDE 400 MG TABLET (FP) PO ONE (10:38)
--- NOTE | 2018-10-20 11:59 | PN ---
Physical Exam: SUBJECTIVE: Patient seen and examined at bedside. Distraught over roommate, states she was very loud in the night. Otherwise, still c/o pain in LE, swelling , and abdominal pain. OBJECTIVE: Vital Signs Period Temp Pulse Resp BP Sys/Santoro Pulse Ox Last 24 Hr 97.5 F-98.2 F 55-78 18-22 90-109/54-70 95-96 GENERAL: The patient is awake, alert, and fully oriented, in no acute distress. HEAD: Normal with no signs of trauma. EYES: PERRL, extraocular movements intact, sclera anicteric, conjunctiva clear. ENT: Ears normal, nares patent, oropharynx clear without exudates, moist mucous membranes. NECK: Trachea midline, full range of motion, supple. LUNGS: Breath sounds equal, clear to auscultation bilaterally, no wheezes, no crackles, no accessory muscle use. HEART: Regular rate and rhythm, S1, S2 without murmur, rub or gallop. ABDOMEN: Soft, obese, mildly distended, normoactive bowel sounds EXTREMITIES: 2+ pt pulses, warm, well-perfused, 1+ pitting edema b/l. NEUROLOGICAL: Cranial nerves II through XII grossly intact. PSYCH: Normal mood, normal affect. SKIN: Warm, dry, normal turgor Laboratory Results - last 24 hr 10/19/18 10/19/18 10/19/18 12:35 16:48 21:22 Sodium 140 Potassium 3.1 L Chloride 99 Carbon Dioxide 34 H Anion Gap 7 L BUN 21 H Creatinine 0.7 Est GFR (CKD-EPI)AfAm 105.38 Est GFR (CKD-EPI)NonAf 90.92 POC Glucometer 98 103 Random Glucose 119 H Calcium 8.5 Magnesium 10/20/18 10/20/18 05:30 05:57 Sodium 136 Potassium 3.9 Chloride 97 L Carbon Dioxide 31 Anion Gap 8 BUN 24 H Creatinine 0.8 Est GFR (CKD-EPI)AfAm 89.67 Est GFR (CKD-EPI)NonAf 77.37 POC Glucometer 81 Random Glucose 81 Calcium 8.5 Magnesium 1.7 L ASSESSMENT/PLAN: 63 year old female smoker with history of Chronic Systolic CHF, CAD (s/p ID x 2 , s/p CABG, s/p 2x stents), CRF sec to COPD (on 6L O2 at home), Hypothyroidism, DM 2, presented with increasing SOB and LE edema. #Acute on chronic systolic CHF decompensation 2/2 med noncompliance -vol status unchanged, has had improved LE edema -c/w entresto and aldactone as per cardio. however avoid hypotension. was 90/50 overnight -wts, i/o, na control -c/w lasix 80mg IVP qd, toprol -cardio: Dr. Vences #hypothyroid -c/w synthroid #DM2 -c/w ISS, BGM ACHS #CAD s/p ID,2 stents, CABG -c/w plavix, toprol #smoking cessation -nicotine patch, counseling #F/E/N avoid IVF, CHF continue to follow lytes diabetic, na controlled diet. no extra ice #ppx hep 5k sq tid #dispo cont'd monitoring on tele will watch for hypotension. med optimization as on entresto, aldactone, toprol Visit type - Emergency Visit Emergency Visit: No - New Patient This patient is new to me today: No - Critical Care Critical Care patient: No
[2018-10-21] MEDS: LEVOTHYROXINE NA 75 MCG TABLET (FP) PO SCH (06:29)
[2018-10-21] MEDS: HEPARIN NA (PORCINE) 5,000 UNITS/ML 1ML VIAL SQ SCH ×3 (06:29→22:43)
[2018-10-21 07:41] LABS: CALCIUM 8.7 mg/dL (8.5-10.1); CREATININE 0.7 mg/dL (0.55-1.3); MAGNESIUM 2.1 mg/dL (1.8-2.4); PHOSPHOROUS 2.5 mg/dL (2.5-4.9); POTASSIUM 3.5 mmol/L (3.5-5.1)
[2018-10-21] MEDS ORDERED: PT OWN MED DRAWER 7, Y5N ONE ×2 (09:58→22:41)
[2018-10-21] MEDS: NICOTINE 14 MG/24 HOURS TOPICAL PATCH TD SCH (10:00)
[2018-10-21] MEDS: metoPROLOL SUCCINATE 25 MG TAB.SR.24H (FP) PO SCH (10:01)
[2018-10-21] MEDS: SACUBITRIL/VALSARTAN 24 MG-26 MG TABLET PO SCH ×2 (10:02→22:43)
[2018-10-21] MEDS: CLOPIDOGREL BISULFATE 75 MG TABLET (FP) PO SCH (10:02)
[2018-10-21] MEDS ORDERED: FUROSEMIDE 40 MG TABLET (FP) PO ONE (10:58)
[2018-10-21] MEDS: FUROSEMIDE 40 MG/4 ML INJECTABLE VIAL IVPUSH SCH (11:20)
--- NOTE | 2018-10-21 12:46 | PN ---
Progress Note, Physician History of Present Illness: The patient is a 63 yr old black woman with a PMH of severe systolic CHF, ICD ( [employer]; since 2014) HTN, HLD, CAD s/p [place]-->CABG 2003 at [facility], obesity, anxiety/depression, hypothyroidism, long-term ad current cigarette smoker, who presents to the ER for increased bilateral leg swelling and pain in her feet that shoot up into her back and neck. Patient states she was discharged for CHF exacerbation 2 days ago during which time she had her metoprolol and furosemide modified. Patient has not yet followed up with her PCP or graphic arts instructor. Patient is on 5L of home O2, denies worsening sob, fever, chills, sob, N/V/D/C, or urinary symptoms. Allergies: aspirin PCP: Dr. Ferrer Cardio: Dr. Cage - Current Medication List Current Medications: Active Medications Acetaminophen (Tylenol -) 650 mg PO Q6H PRN PRN Reason: pain Last Admin: 10/19/18 13:41 Dose: 650 mg Clopidogrel Bisulfate (Plavix -) 75 mg PO DAILY [facility] Last Admin: 10/21/18 10:02 Dose: 75 mg Furosemide (Lasix Injection -) 80 mg IVPUSH DAILY [facility] Last Admin: 10/21/18 11:20 Dose: Not Given Heparin Sodium (Porcine) (Heparin -) 5,000 unit SQ TID [facility] Last Admin: 10/21/18 06:29 Dose: Not Given Levothyroxine Sodium (Synthroid -) 75 mcg PO DAILY@0700 [facility] Last Admin: 10/21/18 06:29 Dose: 75 mcg Metoprolol Succinate (Toprol Xl -) 75 mg PO DAILY [facility] Last Admin: 10/21/18 10:01 Dose: 75 mg Nicotine (Nicoderm Patch -) 14 mg TD DAILY [facility] Last Admin: 10/21/18 10:00 Dose: Not Given Sacubitril/Valsartan (Entresto 24 Mg-26 Mg Tablet) 1 tab PO BID [facility] Last Admin: 10/21/18 10:02 Dose: 1 tab Spironolactone (Aldactone -) 25 mg PO DAILY [facility] Last Admin: 10/20/18 09:48 Dose: 25 mg - Objective Vital Signs: Vital Signs Temperature 97.8 F 10/21/18 10:00 Pulse Rate 83 10/21/18 10:00 Respiratory Rate 20 10/21/18 10:00 Blood Pressure 104/62 10/21/18 10:00 O2 Sat by Pulse Oximetry (%) 92 L 10/21/18 09:00 Eyes: Yes: WNL, Conjunctiva Clear, EOM Intact HENT: Yes: WNL, Atraumatic, Normocephalic Neck: Yes: WNL, Supple, Trachea Midline Cardiovascular: Yes: WNL, Regular Rate and Rhythm Respiratory: Yes: WNL, Regular, CTA Bilaterally Gastrointestinal: Yes: WNL, Normal Bowel Sounds Genitourinary: Yes: WNL Musculoskeletal: Yes: WNL Extremities: Yes: WNL Edema: Yes Integumentary: Yes: WNL Neurological: Yes: WNL, Alert, Oriented ...Motor Strength: WNL Psychiatric: Yes: WNL Labs: CBC, BMP 10/18/18 07:19 10/21/18 06:16 INR, PTT INR 1.42 (0.83-1.09) H 10/18/18 07:19 Assessment/Plan Assessment/Plan - Problems (1) Obesity Code(s): E66.9 - OBESITY, UNSPECIFIED (2) AICD (automatic cardioverter/defibrillator) present Code(s): Z95.810 - PRESENCE OF AUTOMATIC (IMPLANTABLE) CARDIAC DEFIBRILLATOR (3) Acute on chronic systolic and diastolic heart failure, NYHA class 3 Assessment/Plan: Restarted Entresto bid Continue metoprolol XL 75 qd On furosemide IVP 80 mg daily; continue spironolactone 25 qd; f/u BUN/Cr and electrolytes, replete Mg Is and Os; daily weight. Code(s): I50.43 - ACUTE ON CHRONIC COMBINED SYSTOLIC AND DIASTOLIC HRT FAIL (4) Anasarca Code(s): R60.1 - GENERALIZED EDEMA (5) Anxiety and depression Assessment/Plan: exacerbated upon of her in 2007 Pt resists counseling. Code(s): F41.9 - ANXIETY DISORDER, UNSPECIFIED; F32.9 - MAJOR DEPRESSIVE DISORDER, SINGLE EPISODE, UNSPECIFIED (6) Elevated troponin Assessment/Plan: Chronic mild TNI elevation (CK WNL this admission), with acute/chronic severe systolic CHF a major contributor. Last coronary angiogram 2014; no PCI required of LAD lesion; failed attempt at opening totally occluded RCA; grafts patent on Plavix 75 qd Code(s): R74.8 - ABNORMAL LEVELS OF OTHER SERUM ENZYMES (7) Fatty liver Code(s): K76.0 - FATTY (CHANGE OF) LIVER, NOT ELSEWHERE CLASSIFIED (8) Hyperlipidemia Assessment/Plan: statin; keep LDL < 70 mg/dl. Code(s): E78.5 - HYPERLIPIDEMIA, UNSPECIFIED (9) Hypertension Code(s): I10 - ESSENTIAL (PRIMARY) HYPERTENSION (10) Hypothyroidism Code(s): E03.9 - HYPOTHYROIDISM, UNSPECIFIED (11) NSVT (nonsustained ventricular tachycardia) Code(s): I47.2 - VENTRICULAR TACHYCARDIA (12) Sleep apnea Code(s): G47.30 - SLEEP APNEA, UNSPECIFIED (13) Status post THR (total hip replacement) Code(s): Z96.649 - PRESENCE OF UNSPECIFIED ARTIFICIAL HIP JOINT (14) Coronary artery disease Code(s): I25.10 - ATHSCL HEART DISEASE OF [place] CORONARY ARTERY W/O ANG PCTRS (15) Noncompliance with therapeutic plan Code(s): Z91.11 - PATIENT'S NONCOMPLIANCE WITH DIETARY REGIMEN (16) Smokes cigarettes Code(s): F17.210 - NICOTINE DEPENDENCE, CIGARETTES, UNCOMPLICATED (17) Chronic abdominal pain Code(s): R10.9 - UNSPECIFIED ABDOMINAL PAIN; G89.29 - OTHER CHRONIC PAIN (18) Anemia Code(s): D64.9 - ANEMIA, UNSPECIFIED
--- NOTE | 2018-10-21 15:06 | PN ---
Teaching Attending Note Name of Resident: Anabela Levine ATTENDING PHYSICIAN STATEMENT I saw and evaluated the patient. I reviewed the resident's note and discussed the case with the resident. I agree with the resident's findings and plan as documented. SUBJECTIVE: c/o leg pain. deneis CP or SOB pulled out IV this AM and refused for it to be placed OBJECTIVE: Last Vital Signs Temp Pulse Resp BP Pulse Ox 97.8 F 83 20 104/62 92 L 10/21/18 10:00 10/21/18 10:00 10/21/18 10:00 10/21/18 10:00 10/21/18 09:00 General NAD refused physical exam, states your not gonna help me ASSESSMENT AND PLAN: 63yo F wtih PMH systolic CHF, afib, COPD, hypothyroid, DM and presented with LE edema and found to have mild tropinemia who was recently discharged earlier this week after being hospitalized for over a week for the same symptoms. 1. ACute on chronic systolic CHF-due to non compliance with meds and diet. pulled out IV. received lasix 80mg po. stressed importance of diuresis and IV medication is stronger. also refused to be weighed. difficulty titrating medications based on intermittent hypotension. will need more guidance from cardio on next steps in this difficult patient. aldactone currently on hold due to hypotensive episode. if remains normotensive consider re-starting. encourage patient tko allow IV to be placed. daily weights, strict I&O, water restriction. 2. Tropinemia- Flat trend of troponins 0.11-0.21-0.21. likely demand. no CP. cardiac monitoring. no further workup at this time 3. CKD- recently had LIANNA likely due to medications and hypotension, which has resolved. will cont to monitor while on IV lasix and re-initation of heart failure therapy. 4. hypothyroid- cont LT4 5. DM- hold oral agents. iss and bgm 6. DVT ppx- hep 7. pt is difficult to manage due to resisting treatment and her non compliance at home. pt has multiple hospitalizations for same symptoms due to this. hesitant on discharging based on this issue.
--- NOTE | 2018-10-21 18:02 | PN ---
Physical Exam: SUBJECTIVE: Patient seen and examined at bedside. Eating ice carefully though told not to. Ripped out IV during AM, later amenable to replacement. C/o pain in her R toe that "spreads to the knee" OBJECTIVE: Vital Signs Period Temp Pulse Resp BP Sys/Santoro Pulse Ox Last 24 Hr 97.7 F-98.6 F 65-83 20-20 104-146/58-85 92-97 GENERAL: The patient is awake, alert, in no acute distress. HEAD: Normal with no signs of trauma. EYES: PERRL, extraocular movements intact, sclera anicteric, conjunctiva clear. ENT: Ears normal, nares patent, oropharynx clear without exudates, moist mucous membranes. NECK: Trachea midline, full range of motion, supple. LUNGS: Breath sounds equal, clear to auscultation bilaterally, no wheezes, no crackles, no accessory muscle use. HEART: Regular rate and rhythm, S1, S2 without murmur, rub or gallop. ABDOMEN: Soft, obese, mildly distended, normoactive bowel sounds EXTREMITIES: 2+ pt pulses, warm, well-perfused, 1+ pitting edema b/l. NEUROLOGICAL: Cranial nerves II through XII grossly intact. PSYCH: Normal mood, normal affect. SKIN: Warm, dry Laboratory Results - last 24 hr 10/20/18 10/21/18 10/21/18 22:48 05:18 06:16 Sodium 136 Potassium 3.5 Chloride 97 L Carbon Dioxide 31 Anion Gap 8 BUN 22 H Creatinine 0.7 Est GFR (CKD-EPI)AfAm 105.38 Est GFR (CKD-EPI)NonAf 90.92 POC Glucometer 75 80 Random Glucose 67 L Calcium 8.7 Phosphorus 2.5 Magnesium 2.1 10/21/18 10/21/18 12:21 17:08 Sodium Chloride Carbon Dioxide Anion Gap BUN Creatinine Est GFR (CKD-EPI)AfAm Est GFR (CKD-EPI)NonAf POC Glucometer 103 90 Random Glucose Calcium Phosphorus Magnesium ASSESSMENT/PLAN: 63 year old female smoker with history of Chronic Systolic CHF, CAD (s/p [place] x 2 , s/p CABG, s/p 2x stents), CRF sec to COPD (on 6L O2 at home), Hypothyroidism, DM 2, presented with increasing SOB and LE edema. #Acute on chronic systolic CHF decompensation 2/2 med noncompliance -with mild LE edema -c/w entresto and aldactone as per cardio. has had improved BP -wts, i/o, na control -c/w lasix 80mg IVP qd, toprol -cardio: Dr. Vences . #hypothyroid -c/w synthroid #DM2 -c/w ISS, BGM ACHS #CAD s/p [place],2 stents, CABG -c/w plavix, toprol #smoking cessation -nicotine patch, counseling #F/E/N avoid IVF, CHF continue to follow lytes diabetic, na controlled diet. no extra ice #ppx hep 5k sq tid #dispo will d/c tele as pt refusing routine care anticipate d/c if BP well controlled and if no other med optimization Visit type - Emergency Visit Emergency Visit: No - New Patient This patient is new to me today: No - Critical Care Critical Care patient: No
[2018-10-22] MEDS: ACETAMINOPHEN 325 MG TABLET (FP) PO PRN (02:30)
[2018-10-22] MEDS: HEPARIN NA (PORCINE) 5,000 UNITS/ML 1ML VIAL SQ SCH ×2 (05:46→14:15)
[2018-10-22] MEDS: LEVOTHYROXINE NA 75 MCG TABLET (FP) PO SCH (06:13)
--- NOTE | 2018-10-22 06:59 | PN ---
Physical Exam: SUBJECTIVE: Patient seen and examined OBJECTIVE: Vital Signs Period Temp Pulse Resp BP Sys/Santoro Pulse Ox Last 24 Hr 97.4 F-98.7 F 65-83 20-20 104-130/54-77 92-95 GENERAL: The patient is awake, alert, and fully oriented, in no acute distress. HEAD: Normal with no signs of trauma. EYES: PERRL, extraocular movements intact, sclera anicteric, conjunctiva clear. No ptosis. ENT: Ears normal, nares patent, oropharynx clear without exudates, moist mucous membranes. NECK: Trachea midline, full range of motion, supple. LUNGS: Breath sounds equal, clear to auscultation bilaterally, no wheezes, no crackles, no accessory muscle use. HEART: Regular rate and rhythm, S1, S2 without murmur, rub or gallop. ABDOMEN: Soft, nontender, nondistended, normoactive bowel sounds, no guarding, no rebound, no hepatosplenomegaly, no masses. EXTREMITIES: 2+ pulses, warm, well-perfused, no edema. NEUROLOGICAL: Cranial nerves II through XII grossly intact. Normal speech, gait not observed. PSYCH: Normal mood, normal affect. SKIN: Warm, dry, normal turgor, no rashes or lesions noted Laboratory Results - last 24 hr 10/21/18 10/21/18 10/21/18 06:16 12:21 17:08 Sodium 136 Potassium 3.5 Chloride 97 L Carbon Dioxide 31 Anion Gap 8 BUN 22 H Creatinine 0.7 Est GFR (CKD-EPI)AfAm 105.38 Est GFR (CKD-EPI)NonAf 90.92 POC Glucometer 103 90 Random Glucose 67 L Calcium 8.7 Phosphorus 2.5 Magnesium 2.1 Active Medications Acetaminophen (Tylenol -) 650 mg PO Q6H PRN PRN Reason: pain Last Admin: 10/22/18 02:30 Dose: 650 mg Clopidogrel Bisulfate (Plavix -) 75 mg PO DAILY [facility] Last Admin: 10/21/18 10:02 Dose: 75 mg Furosemide (Lasix Injection -) 80 mg IVPUSH DAILY [facility] Last Admin: 10/21/18 11:20 Dose: Not Given Heparin Sodium (Porcine) (Heparin -) 5,000 unit SQ TID [facility] Last Admin: 10/22/18 05:46 Dose: Not Given Levothyroxine Sodium (Synthroid -) 75 mcg PO DAILY@0700 [facility] Last Admin: 10/22/18 06:13 Dose: 75 mcg Metoprolol Succinate (Toprol Xl -) 75 mg PO DAILY [facility] Last Admin: 10/21/18 10:01 Dose: 75 mg Nicotine (Nicoderm Patch -) 14 mg TD DAILY [facility] Last Admin: 10/21/18 10:00 Dose: Not Given Sacubitril/Valsartan (Entresto 24 Mg-26 Mg Tablet) 1 tab PO BID [facility] Last Admin: 10/21/18 22:43 Dose: 1 tab Spironolactone (Aldactone -) 25 mg PO DAILY [facility] Last Admin: 10/20/18 09:48 Dose: 25 mg ASSESSMENT/PLAN: Patient 63 y/o female with a history of CHF(s/p CT!, s/p CABG), on COPD ( on 6 L ), hypothyroidism, DM, who is admitted for CHF exacerbation. #Acute on chronic systolic CHF decompensation -continue Entresto, aldactone, - daily weights, i/o, na control - continue lasix 80 IV, patient pulled out line #hypothyroid - continue with synthroig #DM - BGM ACHS - SS #smoking cessation - nicotine patch #DVT ppx - heaprin TID #FEN - low NA diet dispo: possible DC today
[2018-10-22 07:29] LABS: CREATININE 0.8 mg/dL (0.55-1.3); MAGNESIUM 1.7 mg/dL (1.8-2.4); PHOSPHOROUS 2.6 mg/dL (2.5-4.9); POTASSIUM 3.4 mmol/L (3.5-5.1)
[2018-10-22] MEDS ORDERED: MAGNESIUM SULF 50% (8.12 MEQ/2 ML-1 GM VIAL) IVPB ONE (07:59)
[2018-10-22] MEDS ORDERED: POTASSIUM CHLORIDE TABS 20 MEQ TABLET.ER (FP) PO ONE (08:02)
[2018-10-22] MEDS ORDERED: PT OWN MED DRAWER 7, Y5N ONE (10:08)
[2018-10-22] MEDS: CLOPIDOGREL BISULFATE 75 MG TABLET (FP) PO SCH (10:26)
[2018-10-22] MEDS: NICOTINE 14 MG/24 HOURS TOPICAL PATCH TD SCH (10:26)
[2018-10-22] MEDS: metoPROLOL SUCCINATE 25 MG TAB.SR.24H (FP) PO SCH (10:26)
[2018-10-22] MEDS: SACUBITRIL/VALSARTAN 24 MG-26 MG TABLET PO SCH (10:26)
[2018-10-22] MEDS: FUROSEMIDE 40 MG/4 ML INJECTABLE VIAL IVPUSH SCH (10:57)
--- NOTE | 2018-10-22 12:21 | PN ---
Teaching Attending Note Name of Resident: Emperatriz Dubon ATTENDING PHYSICIAN STATEMENT I saw and evaluated the patient. I reviewed the resident's note and discussed the case with the resident. I agree with the resident's findings and plan as documented. SUBJECTIVE: Grumpy. Denies SOB. Complains of generalized discomfort. No cough/ sputum/hemotysis. No fever/chills. OBJECTIVE: Afebrile, Hemodynamically Stable. Last Vital Signs Temp Pulse Resp BP Pulse Ox 97.7 F 86 20 108/64 95 10/22/18 09:00 10/22/18 09:00 10/22/18 09:00 10/22/18 09:00 10/22/18 09:00 Heart - S1, S2, RRR Lungs - decreased air entry at bases Abdomen - Distension. Mild generalized tenderness. Bowel Sounds normal. Extremities - bilateral pitting LE edema + (appears to be improving despite daily weight measurements) Laboratory Results - last 24 hr 10/21/18 10/21/18 10/22/18 12:21 17:08 05:40 Sodium 135 L Potassium 3.4 L Chloride 97 L Carbon Dioxide 32 Anion Gap 7 L BUN 24 H Creatinine 0.8 Est GFR (CKD-EPI)AfAm 89.67 Est GFR (CKD-EPI)NonAf 77.37 POC Glucometer 103 90 Random Glucose 67 L Calcium 9.0 Phosphorus 2.6 Magnesium 1.7 L 10/22/18 12:12 Sodium Potassium Chloride Carbon Dioxide Anion Gap BUN Creatinine Est GFR (CKD-EPI)AfAm Est GFR (CKD-EPI)NonAf POC Glucometer 108 Random Glucose Calcium Phosphorus Magnesium Current Medications Generic Name Dose Route Start Last Admin Trade Name Michaelq PRN Reason Stop Dose Admin Acetaminophen 650 mg 10/19/18 13:11 10/22/18 02:30 Tylenol - PO 650 mg Q6H PRN Administration pain Clopidogrel Bisulfate 75 mg 10/18/18 10:00 10/22/18 10:26 Plavix - PO 75 mg DAILY RINA Administration Furosemide 80 mg 10/18/18 10:00 10/22/18 10:57 Lasix Injection - IVPUSH 80 mg DAILY RINA Administration Heparin Sodium (Porcine) 5,000 unit 10/17/18 22:00 10/22/18 05:46 Heparin - SQ Not Given TID RINA Levothyroxine Sodium 75 mcg 10/18/18 07:00 10/22/18 06:13 Synthroid - PO 75 mcg DAILY@0700 RINA Administration Metoprolol Succinate 75 mg 10/18/18 10:00 10/22/18 10:26 Toprol Xl - PO 75 mg DAILY RINA Administration Nicotine 14 mg 10/18/18 10:00 10/22/18 10:26 Nicoderm Patch - TD Not Given DAILY RINA Sacubitril/Valsartan 1 tab 10/18/18 10:00 10/22/18 10:26 Entresto 24 Mg-26 Mg Tablet PO 1 tab BID RINA Administration Spironolactone 25 mg 10/19/18 13:15 10/20/18 09:48 Aldactone - PO 25 mg DAILY RINA Administration ASSESSMENT AND PLAN: 63 year old female smoker with history of Chronic Systolic CHF, CAD (s/p MT x 2 , s/p CABG, s/p 2x stents), CRF sec to COPD (on 2L O2 at home), Hypothyroidism, DM 2, recently discharged after inpatient treatment for CHF decompensation, presented again with increasing LE edema. 1. Acute on Chronic systolic CHF decompensation - secondary to likely medication non-compliance Echo 09/25/18 - severe Global hypokinesesis of LV and severe MR/TR. Lasix 80mg IVP daily as per Cardio. Continued on Entresto but Spironolactone held due to borderline BP and tendency to develop ATN due to prolonged hypotension. Cardiology following. Will await further recommendations for transition to oral Lasix and likely discharge and out-patient follow up plan. 2. Troponin Egression - chronic - likely sec to dilated cardiomyopathy, +/- demand due to CHF decompensation. No chest pain. Further management as per Cardio. 3. CKD 3 - monitor to ensure no development of Cardiorenal Syndrome/ATN due to hypotensive episodes. 4. Hypomagnesemia - recurrent, repleted. 5. Uterine Fibroids - no blood loss. for out-patient Gynecology follow up. 6. Hypothyroidism - Continue Levothyroxine. 7. Hx of DM 2 - A1C 5.8. Appears diet controlled. 8. CAD (s/p MT x 2, s/p CABG, s/p 2x stents) - Continue with Plavix, BB, ARB 9. CRF sec to COPD - on Home O2 - Continue. Required BiPAP at night on last admission due to CO2 narcosis. BiPAP at bedside but patient refuses. For outpatient pulm follow up and sleep study. 10. HTN - Continue Metoprolol, Entresto. Further guidance re: Spironolactone as per Cardiology given borderline BP. DVT Px - Heparin SQ
--- NOTE | 2018-10-22 13:38 | PN ---
Progress Note, Physician Chief Complaint: Pt A&OX3. Her feet hurt, but only when lying in bed; when she walks, she does not have the pain. She goes to filling layer up and gets "water therapy" that helps relieve the pain, also. History of Present Illness: The patient is a 63 yr old black woman with a PMH of severe systolic CHF, ICD ( VisualXcript; since 2014) HTN, HLD, CAD s/p ID-->CABG 2003 at [facility], obesity, anxiety/depression, hypothyroidism, long-term ad current cigarette smoker, who presents to the ER for increased bilateral leg swelling and pain in her feet that shoot up into her back and neck. Patient states she was discharged for CHF exacerbation 2 days ago during which time she had her metoprolol and furosemide modified. Patient has not yet followed up with her PCP or net lead architect. Patient is on 5L of home O2, denies worsening sob, fever, chills, sob, N/V/D/C, or urinary symptoms. Allergies: aspirin PCP: Dr. Ferrer Cardio: Dr. Cage - Current Medication List Current Medications: Active Medications Acetaminophen (Tylenol -) 650 mg PO Q6H PRN PRN Reason: pain Last Admin: 10/22/18 02:30 Dose: 650 mg Clopidogrel Bisulfate (Plavix -) 75 mg PO DAILY [facility] Last Admin: 10/22/18 10:26 Dose: 75 mg Furosemide (Lasix Injection -) 80 mg IVPUSH DAILY [facility] Last Admin: 10/22/18 10:57 Dose: 80 mg Heparin Sodium (Porcine) (Heparin -) 5,000 unit SQ TID [facility] Last Admin: 10/22/18 05:46 Dose: Not Given Levothyroxine Sodium (Synthroid -) 75 mcg PO DAILY@0700 [facility] Last Admin: 10/22/18 06:13 Dose: 75 mcg Metoprolol Succinate (Toprol Xl -) 75 mg PO DAILY [facility] Last Admin: 10/22/18 10:26 Dose: 75 mg Nicotine (Nicoderm Patch -) 14 mg TD DAILY [facility] Last Admin: 10/22/18 10:26 Dose: Not Given Sacubitril/Valsartan (Entresto 24 Mg-26 Mg Tablet) 1 tab PO BID [facility] Last Admin: 10/22/18 10:26 Dose: 1 tab Spironolactone (Aldactone -) 25 mg PO DAILY [facility]INA Last Admin: 10/20/18 09:48 Dose: 25 mg - Objective Vital Signs: Vital Signs Temperature 97.7 F 10/22/18 09:00 Pulse Rate 86 10/22/18 09:00 Respiratory Rate 20 10/22/18 09:00 Blood Pressure 108/64 10/22/18 09:00 O2 Sat by Pulse Oximetry (%) 95 10/22/18 09:00 Constitutional: Yes: Calm, Obese Eyes: Yes: WNL HENT: Yes: WNL Neck: Yes: WNL Cardiovascular: Yes: S1, S2 (split) Respiratory: Yes: Regular, SOB on Exertion Gastrointestinal: Yes: Soft ...Rectal Exam: Yes: Deferred Genitourinary: No: Anuria Musculoskeletal: Yes: Joint Swelling, Muscle Weakness Extremities: Yes: Cool Edema: Yes Edema: LLE: 2+, RLE: 2+ Peripheral Pulses WNL: No Peripheral Pulses: Left Doralis Pedis: 1+, Right Dorsalis Pedis: 1+ Integumentary: Yes: Venous Stasis Changes Neurological: Yes: Alert, Oriented, Weakness Psychiatric: Yes: Alert, Oriented, Other Labs: CBC, BMP 10/18/18 07:19 10/22/18 05:40 INR, PTT INR 1.42 (0.83-1.09) H 10/18/18 07:19 Abnormal Lab Results 10/22/18 05:40 Sodium 135 L Potassium 3.4 L Chloride 97 L Anion Gap 7 L BUN 24 H Random Glucose 67 L Magnesium 1.7 L - ....Imaging Other: Image Reviewed (telemetry: NSR; no arrhythmias) Problem List - Problems (1) Obesity Code(s): E66.9 - OBESITY, UNSPECIFIED (2) AICD (automatic cardioverter/defibrillator) present Assessment/Plan: f/u ICD interrogation as outpatient Code(s): Z95.810 - PRESENCE OF AUTOMATIC (IMPLANTABLE) CARDIAC DEFIBRILLATOR (3) Acute on chronic systolic and diastolic heart failure, NYHA class 3 Assessment/Plan: Restarted Entresto. Continue metoprolol. May change to PO furosemide 80 mg qam and 40 mg apm; f/u BUN/Cr and K+ in one week. Start spironolactone 12.5 mg daily. F/u as outpatient cardiology in 7-10 days. Code(s): I50.43 - ACUTE ON CHRONIC COMBINED SYSTOLIC AND DIASTOLIC HRT FAIL (4) Anasarca Code(s): R60.1 - GENERALIZED EDEMA (5) Anxiety and depression Code(s): F41.9 - ANXIETY DISORDER, UNSPECIFIED; F32.9 - MAJOR DEPRESSIVE DISORDER, SINGLE EPISODE, UNSPECIFIED (6) Elevated troponin Assessment/Plan: Chronic mild TNI elevation (CK WNL this admission), with acute/chronic severe systolic CHF a major contributor. Last coronary angiogram 2014; no PCI required of LAD lesion; failed attempt at opening totally occluded RCA; grafts patent. Code(s): R74.8 - ABNORMAL LEVELS OF OTHER SERUM ENZYMES (7) Fatty liver Code(s): K76.0 - FATTY (CHANGE OF) LIVER, NOT ELSEWHERE CLASSIFIED (8) Hyperlipidemia Code(s): E78.5 - HYPERLIPIDEMIA, UNSPECIFIED (9) Hypertension Code(s): I10 - ESSENTIAL (PRIMARY) HYPERTENSION (10) Hypothyroidism Code(s): E03.9 - HYPOTHYROIDISM, UNSPECIFIED (11) NSVT (nonsustained ventricular tachycardia) Code(s): I47.2 - VENTRICULAR TACHYCARDIA (12) Sleep apnea Code(s): G47.30 - SLEEP APNEA, UNSPECIFIED (13) Status post THR (total hip replacement) Code(s): Z96.649 - PRESENCE OF UNSPECIFIED ARTIFICIAL HIP JOINT (14) Coronary artery disease Code(s): I25.10 - ATHSCL HEART DISEASE OF [place] CORONARY ARTERY W/O ANG PCTRS (15) Noncompliance with therapeutic plan Code(s): Z91.11 - PATIENT'S NONCOMPLIANCE WITH DIETARY REGIMEN (16) Smokes cigarettes Code(s): F17.210 - NICOTINE DEPENDENCE, CIGARETTES, UNCOMPLICATED (17) Chronic abdominal pain Code(s): R10.9 - UNSPECIFIED ABDOMINAL PAIN; G89.29 - OTHER CHRONIC PAIN (18) Anemia Code(s): D64.9 - ANEMIA, UNSPECIFIED (19) Hypomagnesemia Assessment/Plan: replete magnesium and K+ Code(s): E83.42 - HYPOMAGNESEMIA
--- NOTE | 2018-10-22 13:55 | DS ---
Physical Exam: SUBJECTIVE: Patient seen this morning and without any acute complaints. No events overnight. OBJECTIVE: Vital Signs Period Temp Pulse Resp BP Sys/Santoro Pulse Ox Last 24 Hr 97.4 F-98.7 F 65-86 20-20 108-130/54-77 95-95 PHYSICAL EXAM GENERAL: The patient is awake, alert, in no acute distress. HEAD: Normal with no signs of trauma. EYES: PERRL, extraocular movements intact, sclera anicteric, conjunctiva clear. ENT: Ears normal, nares patent, oropharynx clear without exudates, moist mucous membranes. NECK: Trachea midline, full range of motion, supple. LUNGS: Breath sounds equal, clear to auscultation bilaterally, no wheezes, no crackles, no accessory muscle use. HEART: Regular rate and rhythm, S1, S2 without murmur, rub or gallop. ABDOMEN: Soft, obese, mildly distended, normoactive bowel sounds EXTREMITIES: 2+ pt pulses, warm, well-perfused, 1+ pitting edema b/l. NEUROLOGICAL: Cranial nerves II through XII grossly intact. PSYCH: Normal mood, normal affect. SKIN: Warm, dry LABS Laboratory Results - last 24 hr 10/21/18 10/22/18 10/22/18 17:08 05:40 12:12 Sodium 135 L Potassium 3.4 L Chloride 97 L Carbon Dioxide 32 Anion Gap 7 L BUN 24 H Creatinine 0.8 Est GFR (CKD-EPI)AfAm 89.67 Est GFR (CKD-EPI)NonAf 77.37 POC Glucometer 90 108 Random Glucose 67 L Calcium 9.0 Phosphorus 2.6 Magnesium 1.7 L HOSPITAL COURSE: Date of Admission:10/19/18 Patient presented to the hospital for CHF exacerbation. Patient was recently in the hospital for similar complaints. While she was here her medications were optimized. She will continue furosemide 80 mg in the morning, 40 mg in the evening, continue aldactone, metoprolol and entresto. Patient will be encouraged to closely follow up with her post form remover and PCP. Patient stable for discharge. CXR: no acute pathology Date of Discharge: 10/22/18 Minutes to complete discharge: 35 Discharge Summary Reason For Visit: EDEMA OF LOWER EXTREMITY ELEVATED TROPONIN LEVEL Current Active Problems Anemia (Acute) Noncompliance with therapeutic plan (Acute) Obesity (Acute) Smokes cigarettes (Acute) Condition: Stable - Instructions Diet, Activity, Other Instructions: You were admitted to the hospital because of your heart failure. While you were here we optimized your medications to treat your heart. For your heart please continue to take: Entresto 1 pill twice a day by mouth Metoprolol 75 mg once a day by mouth Furosemide (lasix) 80 mg in the morning and 40 mg in the evening by mouth, please take every day Spironolactone 12.5 mg once a day by mouth Please continue your other home medications as prescribed. It is very important that you follow up with your Aerospace Products Sales Engineer, Dr. Cage THIS . You need to follow up with him regularly. Please also follow up with your PCP within 1 week. At that time you need a repeat BMP ( blood work) done to monitor your kidney and liver function. Please follow up with your Water Attendant, Dr. Pierce, within 1 week to discuss your abdominal pain and your fibroids in your uterus and elevated Ca- 125 marker. Please follow up with your Organ Fixer, within 1 week to discuss your renal function. Please follow up with your Sill Worker, Dr. Reddy within 1 week, to discuss obtaining a BiPAP machine at home. Please return to the emergency department if you have worsening of symptoms, chest pain, nausea, diarrhea, or dizziness. Referrals: Dick Cage MD [Staff Physician] - Disposition: HOME - Home Medications Comprehensive Discharge Medication List: Ambulatory Orders Clopidogrel Bisulfate [Plavix -] 75 mg PO DAILY #30 tablet 08/02/17 Levothyroxine [Synthroid -] 75 mcg PO DAILY@0700 30 Days #30 tablet 08/02/17 Furosemide [Lasix -] 40 mg PO DAILY #30 tablet 10/22/18 Furosemide [Lasix] 80 mg PO DAILY #30 tablet 10/22/18 Metoprolol Succinate [Toprol XL -] 75 mg PO DAILY #90 tab.sr.24h 10/22/18 Sacubitril/Valsartan [Entresto 24 mg-26 mg Tablet] 1 each PO DAILY #30 tablet Spironolactone 12.5 mg PO DAILY #15 tablet 10/22/18 This patient is new to me today: Yes Date on this admission: 10/23/18 Emergency Visit: No Critical Care patient: No - Discharge Referral Referred to [facility] Med P.C.: No
[2018-10-22 15:53] VITALS: BP 112/60; PULSE 63; TEMP 97.8
== END 2018-10-22 18:44 | disposition home or self-care (01) | DRG 291 ==
LOC: JER 11:55 → JERBED 13:15 → UNDOADMOB 16:53 → JERBED 17:53 → INTOOBSV 17:56 → OBSVTOIN 17:56 → JERBED 20:51 → J4W 20:51 → OBSVTOIN 10-19 13:15 → J4W 10-19 18:52 → J8W 10-21 19:21 → J4W 10-21 19:34
PROVIDERS: ADMIT Internal Medicine
DX: I13.0 Hypertensive heart and chronic kidney disease with heart failure and stage 1 through stage 4 chronic kidney disease, or unspecified chronic kidney disease (principal); I50.23 Acute on chronic systolic (congestive) heart failure; I47.2 Ventricular tachycardia; I24.8 Other forms of acute ischemic heart disease; I25.10 Atherosclerotic heart disease of native coronary artery without angina pectoris; E11.22 Type 2 diabetes mellitus with diabetic chronic kidney disease; N18.3 Chronic kidney disease, stage 3 (moderate); E03.9 Hypothyroidism, unspecified; I27.20 Pulmonary hypertension, unspecified; I25.2 Old myocardial infarction; E78.00 Pure hypercholesterolemia, unspecified; F32.9 Major depressive disorder, single episode, unspecified; Z96.641 Presence of right artificial hip joint; J44.9 Chronic obstructive pulmonary disease, unspecified; D64.9 Anemia, unspecified; R74.8 Abnormal levels of other serum enzymes; I42.0 Dilated cardiomyopathy; E83.42 Hypomagnesemia; F41.8 Other specified anxiety disorders; E66.9 Obesity, unspecified; G89.29 Other chronic pain; D25.9 Leiomyoma of uterus, unspecified; M54.5 Low back pain; R07.0 Pain in throat; G47.30 Sleep apnea, unspecified; K76.0 Fatty (change of) liver, not elsewhere classified; R10.9 Unspecified abdominal pain; F17.210 Nicotine dependence, cigarettes, uncomplicated; Z95.810 Presence of automatic (implantable) cardiac defibrillator; Z95.1 Presence of aortocoronary bypass graft; Z99.81 Dependence on supplemental oxygen; Z87.891 Personal history of nicotine dependence; Z68.38 Body mass index [BMI] 38.0-38.9, adult; Z91.11 Patient's noncompliance with dietary regimen
CPT/HCPCS: 36415; 71045-TC-FY; 80048; 80053; 82550; 82553; 82962; 83735; 83880; 84100; 84443; 84484; 85025; 85610; 85730; 93005; 93010; 94660; 97116-GP; 97161-GP; 99284-25; G0378; J0131; J1644

== ENCOUNTER 2018-10-31 11:09 | Inpatient (IN) | payer OTHER, BC ==
--- NOTE | 2018-10-31 11:45 | PDOC ---
History of Present Illness - General Chief Complaint: Pain, Acute Stated Complaint: LEG PAIN Time Seen by Provider: 10/31/18 11:31 - History of Present Illness Initial Comments: 10/31/18 12:59 The patient is a 63 year old female with a history of HTN, HLD, DM, CHF, CAD, MD s/p CABG who presents for evaluation of lower extremity pain. The patient reports worsening lower extremity edema and pain over the past few weeks. She was recently admitted several weeks ago for similar symptoms. She reports some associated mild shortness of breath but otherwise denies fevers, chills, chest pain, nausea, vomiting, abdominal pain, or changes with urination or bowel movements. Past History - Past Medical History Allergies/Adverse Reactions: Allergies Allergy/AdvReac Type Severity Reaction Status Date / Time aspirin Allergy Mild Rash Verified 10/31/18 11:26 banana Allergy Hives Verified 10/31/18 11:26 tomato Allergy Verified 10/31/18 11:26 Home Medications: Ambulatory Orders Clopidogrel Bisulfate [Plavix -] 75 mg PO DAILY #30 tablet 08/02/17 Levothyroxine [Synthroid -] 75 mcg PO DAILY@0700 30 Days #30 tablet 08/02/17 Furosemide [Lasix -] 40 mg PO DAILY #30 tablet 10/22/18 Furosemide [Lasix] 80 mg PO DAILY #30 tablet 10/22/18 Metoprolol Succinate [Toprol XL -] 75 mg PO DAILY #90 tab.sr.24h 10/22/18 Sacubitril/Valsartan [Entresto 24 mg-26 mg Tablet] 1 each PO DAILY #30 tablet Spironolactone 12.5 mg PO DAILY #15 tablet 10/22/18 Anemia: Yes Asthma: Yes Cancer: No Cardiac Disorders: Yes (AICD,MD 2014, stents, CABG. NSVT) CVA: No COPD: No CHF: Yes Dementia: No Diabetes: Yes GI Disorders: Yes (hepatopathy, diverticulosis,hyperbilirubinemia, fatty liver. dyspepsia,) Disorders: No HTN: Yes Hypercholesterolemia: Yes Kidney Stones: Yes Liver Disease: Yes Psychiatric Problems: Yes (anxiety/depression) Seizures: No Thyroid Disease: Yes (Hypo) Other medical history: restless leg syndrome, hypokalemia,sleep apnea, peripheral neuropathy - Surgical History Abdominal Surgery: Yes Appendectomy: No Cardiac Surgery: Yes (bypass,stent x2, CABG 2003, ICD/Pacer 12/02) Cholecystectomy: Yes (04/2016) Lung Surgery: (cabg 2003) Neurologic Surgery: No Orthopedic Surgery: Yes (Right THR) - Immunization History Immunization Up to Date: Yes - Suicide/Smoking/Psychosocial Hx Smoking Status: No Smoking History: Never smoked Have you smoked in the past 12 months: No Number of Cigarettes Smoked Daily: 2 Information on smoking cessation initiated: No 'Breaking Loose' booklet given: 10/17/18 Hx Alcohol Use: No Drug/Substance Use Hx: No Substance Use Type: None Hx Substance Use Treatment: No Review of Systems - Review of Systems Comments:: 10/31/18 13:12 Constitutional: No fevers, chills, fatigue, malaise HEENT: No Rhinorrhea, nasal congestion, visual changes Cardiovascular: No chest pain, syncope, palpitations, lightheadedness Respiratory: SOB, No Cough, Hemoptysis, Gastrointestinal: No Abdominal pain, Nausea, Vomiting, Constipation, Diarrhea, Melena Genitourinary: No Dysuria, Frequency, Urgency, Hesitancy, Hematuria, Flank pain Musculoskeletal: Bilateral lower extremity pain. No Myalgia, arthralgia Skin: No rashes, itching, bruising, pallor Neurologic: No Headache, Dizziness, Numbness, Weakness, or Tingling Psychiatric: No Hallucinations. No SI or HI *Physical Exam - Vital Signs Last Vital Signs Temp Pulse Resp BP Pulse Ox 97.3 F L 70 16 103/66 94 L 10/31/18 11:09 10/31/18 11:09 10/31/18 11:09 10/31/18 11:09 10/31/18 11:09 - Physical Exam Comments: 10/31/18 13:14 General Appearance: Nourished. No Apparent Distress HEENT: No Pharyngeal Erythema, Tonsillar Exudate, Tonsillar Erythema Neck: No Cervical Lymphadenopathy Respiratory/Chest: Lungs Clear, Normal Breath Sounds. No Crackles, Rales, Rhonchi, Wheezing Cardiovascular: Regular Rhythm, Regular Rate. No Murmur, Gallops, Rubs Gastrointestinal/Abdominal: Normal Bowel Sounds, Soft. No Guarding, Rebound, Tenderness Musculoskeletal: No CVA Tenderness Extremity: 4+ Pitting edema to the lower extremities bilaterally up to the abdomen. Normal Capillary Refill Integumentary: Normal Color, Dry, Warm Neurologic: Fully Oriented, Alert, Normal Mood/Affect, Normal Response, ED Treatment Course - LABORATORY CBC & Chemistry Diagram: 10/31/18 10:05 10/31/18 10:05 Medical Decision Making - Medical Decision Making 10/31/18 13:15 The patient is a 63 year old female with a history of HTN, HLD, DM, CHF, CAD, MD s/p CABG who presents for evaluation of lower extremity pain. Given the patient's history and physical exam, we will obtain a cbc, cmp, troponin, bnp, ekg, chest plain film to evaluate further. The patient appears fluid overloaded on exam which is likely contributing to the patient's lower extremity pain. We will treat with lasix and continue to monitor and reassess while here in the ED. 10/31/18 18:26 CBC is unremarkable. CMP and troponin are unremarkable. BNP is elevated to 8000. Chest plain film demonstrates pulmonary congestion. The patient will require admission for further management. We discussed the case with Dr. Cage who is aware of the patient and agrees with admission for iv diuresis with 80mg of lasix. We discussed the case with the admitting team who accepted the patient for admission. *DC/Admit/Observation/Transfer Diagnosis at time of Disposition: Lower extremity edema CHF exacerbation Qualifiers: Heart failure type: unspecified Qualified Code(s): I50.9 - Heart failure, unspecified - Discharge Dispostion Condition at time of disposition: Stable Decision to Admit order: Yes - Referrals Referrals: Parrish Ferrer MD [Primary Care Provider] - - Patient Instructions - Post Discharge Activity
[2018-10-31] MEDS ORDERED: FUROSEMIDE 40 MG/4 ML INJECTABLE VIAL IVPUSH ONE ×2 (11:46→15:59)
[2018-10-31] MEDS ORDERED: FUROSEMIDE 40 MG/4 ML INJECTABLE VIAL ONE ×2 (12:17→16:26)
[2018-10-31 12:40] LABS: BASO % 0.6 % (0-2.0); HEMATOCRIT 33.4 % (32.4-45.2); HEMOGLOBIN 10.6 GM/dL (10.7-15.3); LYMPH % 16.7 % (8-40); MCH 27.6 pg (25.7-33.7); MCHC 31.8 g/dl (32.0-36.0); MEAN PLT VOLUME 8.4 fl (7.5-11.1); MONO % 15.6 % (3.8-10.2); NEUT % 67.1 % (42.8-82.8); RBC 3.84 M/mm3 (3.60-5.2); WHITE BLOOD COUNT 4.6 K/mm3 (4.0-10.0)
[2018-10-31 12:45] LABS: PLATELET COUNT 197 K/MM3 (134-434)
[2018-10-31 13:02] LABS: ALBUMIN 3.2 g/dl (3.4-5.0); BILIRUBIN,TOTAL 1.5 mg/dL (0.2-1); BLOOD UREA NITROGEN 13.6 mg/dL (7-18); CALCIUM 8.7 mg/dL (8.5-10.1); CREATININE 0.9 mg/dL (0.55-1.3); N-TERMINAL BNP 8039.4 pg/ml (5-125); POTASSIUM 3.5 mmol/L (3.5-5.1)
--- NOTE | 2018-10-31 15:42 | PDOC ---
Documentation entered by Joy Lainez SCRIBE, acting as scribe for Anjali Higginbotham MD. Anjali Higginbotham MD: This documentation has been prepared by the Fatou hough Nirvannie, SCRIBE, under my direction and personally reviewed by me in its entirety. I confirm that the documentation accurately reflects all work, treatment, procedures, and medical decision making performed by me. Attending Attestation - Resident Resident Name: Lukas Fulton - ED Attending Attestation I have performed the following: I have examined & evaluated the patient, The case was reviewed & discussed with the resident, I agree w/resident's findings & plan - HPI HPI: 10/31/18 13:47 The patient is a 63 year old female, with a significant past medical history of CHF, HTN, HLD, CAD s/p CABG, and STEMI , who presents to the emergency department with, blt LE swelling with pain with shortness of breath. Patient endorses similar episodes in the past at which time her Lasix was increased. She denies recent dysuria, frequency, urgency or hematuria. She denies recent chest pain. Allergies: Aspirin, banana, tomato Past surgical history: CABG. Social history: Nonsmoker. Denies EtOH use and recreational drug use. Primary Care Physician: Dr. Ferrer Cardio: Dr. Cyr - Physicial Exam PE: 10/31/18 13:47 GENERAL: Awake, alert, and fully oriented, in no acute distress HEAD: No signs of trauma NECK: Normal ROM, supple, no lymphadenopathy, JVD, or masses LUNGS:+Dypnea on minimal exertion. Tachypneic. HEART: Regular rate and rhythm, normal S1 and S2, no murmurs, rubs or gallops ABDOMEN: Soft, nontender, normoactive bowel sounds. No guarding, no rebound. No masses EXTREMITIES: +2+ ptitting edema to the knee. No cords, erythema, or tenderness NEUROLOGICAL: Cranial nerves II through XII grossly intact. SKIN: Warm, Dry, normal turgor, no rashes or lesions noted. - Medical Decision Making 10/31/18 15:30 Pt presents to the ED complaining of worsening bilateral edema. History of CHF with severely reduced EF, multiple recent admissions for CHF exacerbations. Labs show BNP that is elevated over baseline. Will admit to medicine for diuresis and continued monitoring.
--- NOTE | 2018-10-31 16:24 | HP ---
CHIEF COMPLAINT: Lower extremity Pain/Swelling PCP: Dr Ferrer HISTORY OF PRESENT ILLNESS: Pt is a 63 y/o F with a significant past medical histroy of HTn, HLD, CO s/p CABG, CHFrEF, DM who presents to [facility] due to lower extremity pain and swelling for approximately 2 weeks. Pt states that she was recently discharged approximately 2 weeks ago for similar symptoms. Pt states she is compliant with her medications. Also endorsing increased dyspnea on exertion. Denies weight gain, chest pain, or lightheadedness. PMH: As above Social Hx: Former smoker. 2 Cigarettes/day x51 years. Denies alcohol/Illicit drug use. FH- Father HTN, CAD. Mother HTN, CAD Surg: CABG, Hip Surgery, 2 stents 2005, pacemaker Allergies- ASA, Banana, Tomato ER course was notable for: (1) BNP > 8000 (2) IV LASIX 40 mg (3) Trop Neg HOME MEDICATIONS: Home Medications Medication Instructions Recorded Clopidogrel Bisulfate [Plavix -] 75 mg PO DAILY #30 tablet 08/02/17 Levothyroxine [Synthroid -] 75 mcg PO DAILY@0700 30 Days #30 08/02/17 tablet Furosemide [Lasix -] 40 mg PO DAILY #30 tablet 10/22/18 Furosemide [Lasix] 80 mg PO DAILY #30 tablet 10/22/18 Metoprolol Succinate [Toprol XL -] 75 mg PO DAILY #90 tab.sr.24h 10/22/18 Sacubitril/Valsartan [Entresto 24 1 each PO DAILY #30 tablet 10/22/18 mg-26 mg Tablet] Spironolactone 12.5 mg PO DAILY #15 tablet 10/22/18 REVIEW OF SYSTEMS CONSTITUTIONAL: Absent: fever, chills, diaphoresis, generalized weakness, malaise, loss of appetite, weight change HEENT: Absent: rhinorrhea, nasal congestion, throat pain, throat swelling, difficulty swallowing, mouth swelling, ear pain, eye pain, visual changes CARDIOVASCULAR: Absent: chest pain, syncope, palpitations, irregular heart rate, lightheadedness , peripheral edema RESPIRATORY: PRESENT: shortness of breath, dyspnea with exertion GASTROINTESTINAL: Absent: abdominal pain, abdominal distension, nausea, vomiting, diarrhea, constipation, melena, hematochezia GENITOURINARY: Absent: dysuria, frequency, urgency, hesitancy, hematuria, flank pain, genital pain MUSCULOSKELETAL: Absent: myalgia, arthralgia, joint swelling, back pain, neck pain SKIN: Absent: rash, itching, pallor HEMATOLOGIC/IMMUNOLOGIC: Absent: easy bleeding, easy bruising, lymphadenopathy, frequent infections ENDOCRINE: Absent: unexplained weight gain, unexplained weight loss, heat intolerance, cold intolerance NEUROLOGIC: Absent: headache, focal weakness or paresthesias, dizziness, unsteady gait, seizure, mental status changes, bladder or bowel incontinence PSYCHIATRIC: Absent: anxiety, depression, suicidal or homicidal ideation, hallucinations. PHYSICAL EXAMINATION Vital Signs - 24 hr 10/31/18 11:09 Temperature 97.3 F L Pulse Rate 70 Respiratory 16 Rate Blood Pressure 103/66 O2 Sat by Pulse 94 L Oximetry (%) GENERAL: NAD HEAD: Normal with no signs of trauma. EARS, NOSE, THROAT: MMM NECK: ++ JVD. LUNGS: CTAB HEART: Murmur LUSB ABDOMEN: Obese, Distended, Tympanic to percusion. TTP LOWER EXTREMITIES: 2+ pitting edema b/l NEUROLOGICAL: Cranial nerves II-XII intact. Normal speech. PSYCHIATRIC: Cooperative. Good eye contact. Appropriate mood and affect. SKIN: Warm, dry, normal turgor, no rashes or lesions noted, normal capillary refill. Laboratory Results - last 24 hr 10/31/18 10/31/18 10:05 10:05 WBC 4.6 RBC 3.84 Hgb 10.6 L Hct 33.4 MCV 87.0 MCH 27.6 MCHC 31.8 L RDW 16.0 H Plt Count 197 MPV 8.4 Absolute Neuts (auto) 3.1 Neutrophils % 67.1 Lymphocytes % 16.7 D Monocytes % 15.6 H Eosinophils % 0.0 Basophils % 0.6 Nucleated RBC % 0 Sodium 141 Potassium 3.5 Chloride 102 Carbon Dioxide 30 Anion Gap 9 BUN 13.6 Creatinine 0.9 Est GFR (CKD-EPI)AfAm 77.77 Est GFR (CKD-EPI)NonAf 67.10 Random Glucose 62 L Calcium 8.7 Total Bilirubin 1.5 H AST 26 ALT 12 L Alkaline Phosphatase 83 Creatine Kinase 160 Creatine Kinase Index 1.0 CK-MB (CK-2) 1.7 Troponin I 0.04 B-Natriuretic Peptide 8039.4 H Total Protein 7.0 Albumin 3.2 L ASSESSMENT/PLAN: Patient is a 63 y.o. F w/ PMHx. of CHFrEF (EF 25%) s/p ACID, HTN, DM, CAD s/p 2 stents, and hypothyroidism admitted for rising trop i #CHFrEF with anasarca-chronic -Baseline on 5 L NC at home -Lasix 40 IVPUSH administered in Emergency Department -Last Echo: LV severly dilated, LV severly reduced, global hypokinesis, EF 25 % patient has an ACID:f/u Dr. Cage -Monitor I's and O's -Strict Is & Os -Daily weights -low salt diet/Diabetic -Tele -Cardiology consult- Dr Cage -Continue Entresto and Spirinolactone -Lasix 80 BID #Abdominal pain 2/2 anasarca-chronic 10/03 CT C/A/P: No PE, cardiomegaly, L moderate pleural effusion, hepatomegaly, ascites, fibroid uterus, dilated and tortuous R. ovarian vein, subcutaneous edema consistent with anasarca, abdominal aorta is ectatic and heavily calcified w/o dilatation. 10/03 Transvaginal US: scattered calcifications in uterus c/w Leiomyomata, no discrete masses identified, moderate ascites in pelvis, no free fluid, limited exam as endometrium and ovaries cannot be visualized. Ca 19-9: 1, normal range CA 125: 179.9, elevated. #DM SSI #CAD s/p 2 stents-stable c/w plavix c/w metoprolol Troponin .04---> repeat pending. Cardio on board #Hypothyroidism c/w Synthroid #DVT Ppx. Heparin SQTID #FEN No Fluids monitor electrolytes, replete as needed Na restricted/diabetic diet Visit type - Emergency Visit Emergency Visit: Yes Care time: The patient presented to the Emergency Department on the above date and was hospitalized for further evaluation of their emergent condition. - New Patient This patient is new to me today: Yes Date on this admission: 10/31/18 - Critical Care Critical Care patient: No
[2018-10-31] MEDS: INSULIN SLIDING SCALE (NOVOLOG) 1 VIAL SQ SCH ×2 (16:55→22:23)
--- NOTE | 2018-10-31 17:25 | PN ---
Teaching Attending Note Name of Resident: Nasim Nix ATTENDING PHYSICIAN STATEMENT I saw and evaluated the patient. I reviewed the resident's note and discussed the case with the resident. I agree with the resident's findings and plan as documented. SUBJECTIVE: CC: LE pain and edema HPI: 63 y/o lady with h/o Chronic Systolic CHF, CAD (s/p OK x 2, s/p CABG, s/p 2x stents), CRF sec to COPD (on 2L O2 at home), Hypothyroidism, DM 2, and recent recurrent admissions for acute heart failure exacerbation , she presented with Le edema and pain . she was recently discharged, she reports being compliant with her meds, but her LE edema and abd wall edema has worsened. she lives with her daughter. last discharge, she was discharged on Entresto and lasix 80 in am and 40 in PM denies Cp, denies abd pain, no fever or SOB. No diarrhea . uses a cane to ambulate. complains of pain in genital area when she wipes, and feels lumps . No dysuria In Er , she received 40 of IV lasix OBJECTIVE: NAD, awake, alert, oriented, + eye contact MMM, + JVD. no facial droop. round equal pupils, reactive to light CV: RRR, 3/6 SM at base, LLSB and [place]. Lungs: decreased breath sounds at bases Abd: soft, TTP in all quadrants. Abd wall edema and erythema LE: 2+ edema, erythema, tenderness. no fungal infection in feet. L leg scab with erythema :( aid present) Nl hair distribution. no discharge form vagina, no erythema, or induration ASSESSMENT AND PLAN: 63 y/o lady with h/o Chronic Systolic CHF, CAD (s/p OK x 2, s/p CABG, s/p 2x stents), CRF sec to COPD (on 2L O2 at home), Hypothyroidism, DM 2, and recent recurrent admissions for acute heart failure exacerbation , she presented with Le edema and pain . 1- Acute systolic CHF exacerbation: - will start IV laisx 80 BID - cont entresto and BB - I&O and weight - Monitor BP - cont spironolactone 2- HTN: - cont metoprolol - entresto 3- H/o CAD. EKG with no ST changes, Qtc 489. . trop Nl - cont plavix and BB 4- discomfort and pain in genitla area: no lesions found. No dysuria. monitor . if dysuria develops, can check UA dispo: HLOC At ne might consider cardiac rehab.
--- NOTE | 2018-10-31 21:17 | CON.CARD ---
Consult Consult Specialty:: cardiology Reason for Consultation:: bilateral leg swelling; hx severe systolic CHF - History of Present Illness History of Present Illness: Ms. Prado is a 63 year old black woman with PMHx of HTN, HLD, DM, severe systolic CHF-->ICD, CAD, NM s/p CABG, cigarettes, chornic abdominal pain post cholecystectomy, anxiety/depression, who presents for evaluation of lower extremity pain. The patient reports worsening lower extremity edema and pain over the past few weeks. She was recently admitted about 2 weeks ago for similar symptoms. She denies SOB, fevers, chills, chest pain, nausea, vomiting , abdominal pain, or changes with urination or bowel movements. - History Source History Provided By: Patient, Medical Record Limitations to Obtaining History: No Limitations - Past Medical History [employer]: Yes: Peripheral Neuropathy Cardio/Vascular: Yes: CAD (CABG 2003, stents x2, now with defibrillator), CHF ( biventricular failure, very poor LV function), HTN, Hyperlipdemia, NM (NM in 2003), Murmur, Pulmonary Hypertension, Other (profound biventricular failure, AICD device, CABG 2003, subsequent stents) Pulmonary: Yes: Asthma, COPD Gastrointestinal: Yes: Other (Chronic abdominal pain and food intolerances. Had PEG placed 11/03 after suffering vocal cord damage ( EMS intubation). PEG was subsequently removed. ) Hepatobiliary: Yes: Cirrhosis (cardiac cirrhosis), Cholecystitis (s/p lap choly 05/05) Renal/: Yes: Renal Calculi Reproductive: Yes: Postmenopausal ...: No Heme/Onc: Yes: Anemia Psych: Yes: Depression Musculoskeletal: Yes: Chronic low back pain, Osteoarthritis Endocrine: Yes: Hypothyroidism - Past Surgical History Past Surgical History: Yes: AICD, CABG, Cholecystectomy (05/05), Colonoscopy, Joint Replacement (right THR), Stent (X2) - Alcohol/Substance Use Hx Alcohol Use: No History of Substance Use: reports: None - Smoking History Smoking history: Current every day smoker Have you smoked in the past 12 months: Yes Aproximately how many cigarettes per day: 2 - Social History Usual Living Arrangement: Alone ADL: Independent 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 History of Recent Travel: No Home Medications - Allergies Allergies/Adverse Reactions: Allergies Allergy/AdvReac Type Severity Reaction Status Date / Time aspirin Allergy Mild Rash Verified 10/31/18 11:26 banana Allergy Hives Verified 10/31/18 11:26 tomato Allergy Verified 10/31/18 11:26 - Home Medications Home Medications: Ambulatory Orders Clopidogrel Bisulfate [Plavix -] 75 mg PO DAILY #30 tablet 08/02/17 Levothyroxine [Synthroid -] 75 mcg PO DAILY@0700 30 Days #30 tablet 08/02/17 Furosemide [Lasix -] 40 mg PO DAILY #30 tablet 10/22/18 Furosemide [Lasix] 80 mg PO DAILY #30 tablet 10/22/18 Metoprolol Succinate [Toprol XL -] 75 mg PO DAILY #90 tab.sr.24h 10/22/18 Sacubitril/Valsartan [Entresto 24 mg-26 mg Tablet] 1 each PO DAILY #30 tablet Spironolactone 12.5 mg PO DAILY #15 tablet 10/22/18 Family Disease History - Family Disease History Family Disease History: Diabetes: Sister (s/p CABG in her 50s), Heart Disease: Father (had unknown cancer), Mother (lived to ), Sister, [place]: Father Review of Systems - Review of Systems Constitutional: reports: Weakness Eyes: reports: No Symptoms HENT: reports: No Symptoms Cardiovascular: denies: Chest Pain Respiratory: reports: Exercise Intolerance, SOB on Exertion Genitourinary: reports: No Symptoms Breasts: reports: No Symptoms Reported Musculoskeletal: reports: Joint Swelling, Muscle Weakness Integumentary: reports: Erythema Neurological: reports: Weakness Psychiatric: reports: Anxiety, Depression - Risk Factors Known Risk Factors: Yes: Age, Diabetes Mellitus, Family History, Hypercholesterolemia, Hypertension, Prior NM /Emb Stroke, Race, Smoking, Other ( severe systolic CHF) Vital Signs: Vital Signs Temperature 98 F 10/31/18 19:15 Pulse Rate 82 10/31/18 19:15 Respiratory Rate 18 10/31/18 19:15 Blood Pressure 117/60 10/31/18 19:15 O2 Sat by Pulse Oximetry (%) 94 L 10/31/18 19:15 Constitutional: Yes: Anxious Eyes: Yes: WNL HENT: Yes: WNL Neck: Yes: WNL Respiratory: Yes: Regular Gastrointestinal: Yes: Abdomen, Obese Renal/: No: Anuria Cardiovascular: Yes: Regular Rate and Rhythm JVD: No Carotid Bruit: No PMI: Displaced Heart Sounds: Yes: S1, Split S2, S4 Murmur: Yes: Systolic Murmur, Grade 2 Musculoskeletal: Yes: Joint Stiffness, Joint Swelling, Muscle Weakness Extremities: Yes: Cool Edema: Yes Edema: LLE: 3+, RLE: 3+ Peripheral Pulses WNL: Yes Integumentary: Yes: Erythema Neurological: Yes: Alert, Oriented Psychiatric: Yes: WNL - Other Data Labs, Other Data: CBC, BMP 10/31/18 10:05 10/31/18 10:05 Troponin, BNP 10/31/18 10:05 Troponin I 0.04 B-Natriuretic Peptide 8039.4 H Troponin, BNP 10/31/18 10:05 Troponin I 0.04 B-Natriuretic Peptide 8039.4 H Abnormal Lab Results 10/31/18 10/31/18 10:05 10:05 Hgb 10.6 L MCHC 31.8 L RDW 16.0 H Monocytes % 15.6 H Random Glucose 62 L Total Bilirubin 1.5 H ALT 12 L B-Natriuretic Peptide 8039.4 H Albumin 3.2 L Echo: Report Reviewed Prior Cardiac Procedures: CABG, PTCA with Stent Ejection Fraction %: LVEF < 40 % Imaging - Results Chest X-ray: Image Reviewed EKG: Image Reviewed Problem List - Problems (1) Lower extremity edema Code(s): R60.0 - LOCALIZED EDEMA (2) AICD (automatic cardioverter/defibrillator) present Code(s): Z95.810 - PRESENCE OF AUTOMATIC (IMPLANTABLE) CARDIAC DEFIBRILLATOR (3) Acute on chronic systolic and diastolic heart failure, NYHA class 3 Assessment/Plan: Restart Entresto. Continue metoprolol and spironolactone. F/u BUN/Cr, electrolytes, daily weight, Is and Os. Code(s): I50.43 - ACUTE ON CHRONIC COMBINED SYSTOLIC AND DIASTOLIC HRT FAIL (4) Anasarca Code(s): R60.1 - GENERALIZED EDEMA (5) Anemia Code(s): D64.9 - ANEMIA, UNSPECIFIED (6) Anxiety and depression Code(s): F41.9 - ANXIETY DISORDER, UNSPECIFIED; F32.9 - MAJOR DEPRESSIVE DISORDER, SINGLE EPISODE, UNSPECIFIED (7) Overweight Code(s): E66.3 - OVERWEIGHT (8) Smokes cigarettes Code(s): F17.210 - NICOTINE DEPENDENCE, CIGARETTES, UNCOMPLICATED (9) Diabetes Code(s): E11.9 - TYPE 2 DIABETES MELLITUS WITHOUT COMPLICATIONS Qualifiers: Diabetes mellitus type: type 2 Diabetes mellitus jail insulin use: with jail use Diabetes mellitus complication status: with unspecified complications (10) Hyperlipidemia Code(s): E78.5 - HYPERLIPIDEMIA, UNSPECIFIED (11) Hypertension Code(s): I10 - ESSENTIAL (PRIMARY) HYPERTENSION (12) Hypothyroidism Code(s): E03.9 - HYPOTHYROIDISM, UNSPECIFIED (13) Sleep apnea Assessment/Plan: CPAP per pulmnologist. Code(s): G47.30 - SLEEP APNEA, UNSPECIFIED (14) Status post THR (total hip replacement) Code(s): Z96.649 - PRESENCE OF UNSPECIFIED ARTIFICIAL HIP JOINT
[2018-10-31] MEDS ORDERED: HEPARIN NA (PORCINE) 5,000 UNITS/ML 1ML VIAL ONE (22:08)
[2018-10-31] MEDS ORDERED: INSULIN (NOVOLOG) ASPART 100 UNITS/ML 10ML VIAL ONE (22:09)
[2018-10-31] MEDS: HEPARIN NA (PORCINE) 5,000 UNITS/ML 1ML VIAL SQ SCH (22:23)
[2018-10-31] MEDS: SACUBITRIL/VALSARTAN 24 MG-26 MG TABLET PO SCH (23:38)
[2018-11-01 01:29] VITALS: BMI 36.6
[2018-11-01] MEDS ORDERED: MORPHINE SULFATE 2 MG/ML VIAL SQ ONE ×2 (01:31→02:34)
[2018-11-01] MEDS: HEPARIN NA (PORCINE) 5,000 UNITS/ML 1ML VIAL SQ SCH ×3 (05:40→21:07)
[2018-11-01] MEDS: FUROSEMIDE 40 MG/4 ML INJECTABLE VIAL IVPUSH SCH ×2 (05:40→14:15)
[2018-11-01] MEDS ORDERED: FUROSEMIDE 40 MG/4 ML INJECTABLE VIAL IVPUSH SCH (06:00)
[2018-11-01 07:01] LABS: BASO % 0.4 % (0-2.0); HEMATOCRIT 33.9 % (32.4-45.2); HEMOGLOBIN 10.8 GM/dL (10.7-15.3); LYMPH % 17.5 % (8-40); MCH 27.9 pg (25.7-33.7); MCHC 31.9 g/dl (32.0-36.0); MEAN CELL VOLUME 87.6 fl (80-96); MEAN PLT VOLUME 8.5 fl (7.5-11.1); MONO % 18.6 % (3.8-10.2); NEUT % 63.5 % (42.8-82.8); PLATELET COUNT 188 K/MM3 (134-434); RBC 3.87 M/mm3 (3.60-5.2); RDW 15.7 % (11.6-15.6); WHITE BLOOD COUNT 4.7 K/mm3 (4.0-10.0)
[2018-11-01 07:13] LABS: INR 1.59 (0.83-1.09); PROTHROMBIN TIME (PATIENT) 18.9 SEC (9.7-13.0)
[2018-11-01 07:15] LABS: ACTIVATED PTT 42.1 SECONDS (25.2-36.5)
[2018-11-01 07:34] LABS: ALBUMIN 3.3 g/dl (3.4-5.0); BILIRUBIN,TOTAL 1.5 mg/dL (0.2-1); BLOOD UREA NITROGEN 19.6 mg/dL (7-18); CALCIUM 8.9 mg/dL (8.5-10.1); MAGNESIUM 1.8 mg/dL (1.8-2.4); PHOSPHOROUS 2.3 mg/dL (2.5-4.9); POTASSIUM 3.3 mmol/L (3.5-5.1)
[2018-11-01] MEDS ORDERED: POTASSIUM CHLORIDE TABS 20 MEQ TABLET.ER (FP) PO ONE (07:55)
[2018-11-01] MEDS ORDERED: NAPH,MB-DB/K PH,MBDB POWDER PACKET PO ONE (08:45)
[2018-11-01] MEDS ORDERED: PT OWN MED DRAWER 7, Y5N ONE ×2 (09:16→21:02)
[2018-11-01] MEDS: SPIRONOLACTONE 25 MG TABLET (FP) PO SCH (09:56)
[2018-11-01] MEDS: metoPROLOL SUCCINATE 25 MG TAB.SR.24H (FP) PO SCH (09:56)
[2018-11-01] MEDS: LEVOTHYROXINE NA 75 MCG TABLET (FP) PO SCH (09:56)
[2018-11-01] MEDS: CLOPIDOGREL BISULFATE 75 MG TABLET (FP) PO SCH (09:56)
[2018-11-01] MEDS: SACUBITRIL/VALSARTAN 24 MG-26 MG TABLET PO SCH ×2 (09:58→21:07)
--- NOTE | 2018-11-01 11:50 | EKG ---
Test Reason : Blood Pressure : / mmHG Vent. Rate : 073 BPM Atrial Rate : 073 BPM P-R Int : 232 ms QRS Dur : 134 ms QT Int : 444 ms P-R-T Axes : 000 120 157 degrees QTc Int : 489 ms SINUS RHYTHM WITH 1ST DEGREE A-V BLOCK RIGHT AXIS DEVIATION NON-SPECIFIC INTRA-VENTRICULAR CONDUCTION BLOCK CANNOT RULE OUT ANTERIOR INFARCT (CITED ON OR BEFORE 22-SEP-2018) ABNORMAL ECG Confirmed by SUDEEP BURTON MD ([id number]) on 11/01/2018 11:50:20 AM Referred By: Confirmed By:SUDEEP BURTON MD
[2018-11-01 12:40] LABS: MAGNESIUM 1.7 mg/dL (1.8-2.4); PHOSPHOROUS 2.7 mg/dL (2.5-4.9)
[2018-11-01] MEDS ORDERED: MAGNESIUM SULF 50% (8.12 MEQ/2 ML-1 GM VIAL) IVPB ONE (12:45)
--- NOTE | 2018-11-01 12:57 | PN ---
Physical Exam: SUBJECTIVE: Patient seen this morning and complains of headache and leg pain. Patient had no events overnight. OBJECTIVE: Vital Signs Temperature 97.3 F L 11/01/18 10:00 Pulse Rate 91 H 11/01/18 10:00 Respiratory Rate 20 11/01/18 10:00 Blood Pressure 115/73 11/01/18 10:00 O2 Sat by Pulse Oximetry (%) 95 11/01/18 09:00 GENERAL: The patient is awake, alert, and fully oriented, in no acute distress. HEAD: Normal with no signs of trauma. EYES: PERRL, extraocular movements intact ENT: moist mucous membranes. LUNGS: Breath sounds equal, clear to auscultation bilaterally HEART: Regular rate and rhythm, S1, S2 without murmur, rub or gallop. ABDOMEN: tenderness on palpation EXTREMITIES: 2+ pitting edema SKIN: Warm, dry, normal turgor, no rashes or lesions noted CBCD WBC 4.7 K/mm3 (4.0-10.0) 11/01/18 05:30 RBC 3.87 M/mm3 (3.60-5.2) 11/01/18 05:30 Hgb 10.8 GM/dL (10.7-15.3) 11/01/18 05:30 Hct 33.9 % (32.4-45.2) 11/01/18 05:30 MCV 87.6 fl (80-96) 11/01/18 05:30 MCHC 31.9 g/dl (32.0-36.0) L 11/01/18 05:30 RDW 15.7 % (11.6-15.6) H 11/01/18 05:30 Plt Count 188 K/MM3 (134-434) 11/01/18 05:30 MPV 8.5 fl (7.5-11.1) 11/01/18 05:30 CMP Sodium 140 mmol/L (136-145) 11/01/18 05:30 Potassium 3.3 mmol/L (3.5-5.1) L 11/01/18 05:30 Chloride 100 mmol/L (98-107) 11/01/18 05:30 Carbon Dioxide 32 mmol/L (21-32) 11/01/18 05:30 Anion Gap 8 MMOL/L (8-16) 11/01/18 05:30 BUN 19.6 mg/dL (7-18) H 11/01/18 05:30 Creatinine 1.0 mg/dL (0.55-1.3) 11/01/18 05:30 Calcium 8.9 mg/dL (8.5-10.1) 11/01/18 05:30 Total Bilirubin 1.5 mg/dL (0.2-1) H 11/01/18 05:30 AST 18 U/L (15-37) 11/01/18 05:30 ALT 12 U/L (13-61) L 11/01/18 05:30 Alkaline Phosphatase 84 U/L (45-117) 11/01/18 05:30 Total Protein 7.0 g/dl (6.4-8.2) 11/01/18 05:30 Albumin 3.3 g/dl (3.4-5.0) L 11/01/18 05:30 Active Medications Clopidogrel Bisulfate (Plavix -) 75 mg PO DAILY [facility] Last Admin: 11/01/18 09:56 Dose: 75 mg Furosemide (Lasix Injection -) 80 mg IVPUSH BIDLASIX [facility] Last Admin: 11/01/18 05:40 Dose: 80 mg Heparin Sodium (Porcine) (Heparin -) 5,000 unit SQ TID [facility] Last Admin: 11/01/18 05:40 Dose: 5,000 unit Insulin Aspart (Novolog Vial Sliding Scale -) 1 vial SQ ACHS [facility]; Protocol Last Admin: 10/31/18 22:23 Dose: Not Given Levothyroxine Sodium (Synthroid -) 75 mcg PO DAILY@0700 [facility] Last Admin: 11/01/18 09:56 Dose: 75 mcg Magnesium Sulfate (Magnesium Sulfate) 2 gm IVPB ONCE ONE Stop: 11/01/18 12:43 Metoprolol Succinate (Toprol Xl -) 75 mg PO DAILY [facility] Last Admin: 11/01/18 09:56 Dose: 75 mg Sacubitril/Valsartan (Entresto 24 Mg-26 Mg Tablet) 1 tab PO BID [facility] Last Admin: 11/01/18 09:58 Dose: 1 tab Spironolactone (Aldactone -) 12.5 mg PO DAILY [facility] Last Admin: 11/01/18 09:56 Dose: 12.5 mg Imaging 10/03 CT C/A/P: No PE, cardiomegaly, L moderate pleural effusion, hepatomegaly, ascites, fibroid uterus, dilated and tortuous R. ovarian vein, subcutaneous edema consistent with anasarca, abdominal aorta is ectatic and heavily calcified w/o dilatation. 10/03 Transvaginal US: scattered calcifications in uterus c/w Leiomyomata, no discrete masses identified, moderate ascites in pelvis, no free fluid, limited exam as endometrium and ovaries cannot be visualized ASSESSMENT/PLAN: Patient is a 63 y/o female with a history of CHFrEF (25%) s/p ACID, HTN, DM, CAD s/p 2 stents who is admitted for CHF #CHFrEF ( 25%) - Last Echo: LV severly dilated, LV severly reduced, global hypokinesis, EF 25 % - continue entresto 1 tab BID - continue spironolactone 12.5 daily - monitor I's and O's - low sodium diet - daily weights - f/u with [facility] - lasix 80 BID - O2 5 L NC - CXR: slight congestion #abdominal pain - chronic, last CT 10/03 nothing abnormal - T bili 1.5, higher on past admissions #DM - SS - BGM ACHS #CAD 2/p 2 stents - continue plavix - continue metoprolol #hypothyroidism - continue synthroid #DVT ppx - heparin TID FEN - sodium/diabetic diet - monitor daily lytes - repleted magnesium and potassium monitor tomorrow Dispo: f/u recs per cardio Visit type - Emergency Visit Emergency Visit: No - New Patient This patient is new to me today: No - Critical Care Critical Care patient: No
[2018-11-01] MEDS: INSULIN SLIDING SCALE (NOVOLOG) 1 VIAL SQ SCH ×3 (12:59→21:07)
--- NOTE | 2018-11-01 14:17 | PN ---
Teaching Attending Note Name of Resident: Emperatriz Dubon ATTENDING PHYSICIAN STATEMENT I saw and evaluated the patient. I reviewed the resident's note and discussed the case with the resident. I agree with the resident's findings and plan as documented. SUBJECTIVE:continues to have diffuse body pain especially in the legs. states breathing is improved. denies CP, SOB, fever, chills, cough, N/V/C/D, reports no more groin pain OBJECTIVE: Last Vital Signs Temp Pulse Resp BP Pulse Ox 97.3 F L 91 H 20 115/73 95 11/01/18 10:00 11/01/18 10:00 11/01/18 10:00 11/01/18 10:00 11/01/18 09:00 Intake & Output 10/29/18 10/30/18 10/31/18 11/01/18 23:59 23:59 23:59 23:59 Intake Total 258 Balance 258 Weight 174 lb 213 lb 12.8 oz General NAD CV S1 S2 RRR Lungs decreased B/L bases Abdomen soft low abdomen pain +ascites Extremites 3+ pitting B/L ASSESSMENT AND PLAN: 63yo F wtih PMH systolic CHF, afib, COPD, hypothyroid, DM and presented with LE edema and found to have mild tropinemia who was recently discharged earlier this week after being hospitalized for over a week for the same symptoms. 1. ACute on chronic systolic CHF-due to non compliance with meds and diet. stared on lasix 80mg BID IV. BP is holding will d/w cardio about medication adjustments. pt would be good candidate for cardiac rehab due to multiple hospital admissions. daily weights, strict I&O, water restriction. 2. Hypokalemia- Kcl po 3. hjypomagnesemia- Mg po 4. CKD- stable 5. hypothyroid- cont LT4 6. DM- hold oral agents. iss and bgm 7. DVT ppx- hep
--- NOTE | 2018-11-01 17:27 | PN ---
Progress Note, Physician Chief Complaint: Pt A&Ox3; continue to c/o pains in her feet-->neck (chronic); denies chest pain , dyspnea. History of Present Illness: Ms. Prado is a 63 year old black woman with PMHx of HTN, HLD, DM, severe systolic CHF-->ICD, CAD, CA s/p CABG, cigarettes, chornic abdominal pain post cholecystectomy, anxiety/depression, who presents for evaluation of lower extremity pain. The patient reports worsening lower extremity edema and pain over the past few weeks. She was recently admitted about 2 weeks ago for similar symptoms. She denies SOB, fevers, chills, chest pain, nausea, vomiting , abdominal pain, or changes with urination or bowel movements. - Current Medication List Current Medications: Active Medications Clopidogrel Bisulfate (Plavix -) 75 mg PO DAILY [facility] Last Admin: 11/01/18 09:56 Dose: 75 mg Furosemide (Lasix Injection -) 80 mg IVPUSH BIDLASIX [facility] Last Admin: 11/01/18 14:15 Dose: 80 mg Heparin Sodium (Porcine) (Heparin -) 5,000 unit SQ TID [facility] Last Admin: 11/01/18 14:14 Dose: 5,000 unit Insulin Aspart (Novolog Vial Sliding Scale -) 1 vial SQ ACHS [facility]; Protocol Last Admin: 11/01/18 12:59 Dose: Not Given Levothyroxine Sodium (Synthroid -) 75 mcg PO DAILY@0700 [facility] Last Admin: 11/01/18 09:56 Dose: 75 mcg Metoprolol Succinate (Toprol Xl -) 75 mg PO DAILY [facility] Last Admin: 11/01/18 09:56 Dose: 75 mg Sacubitril/Valsartan (Entresto 24 Mg-26 Mg Tablet) 1 tab PO BID [facility] Last Admin: 11/01/18 09:58 Dose: 1 tab Spironolactone (Aldactone -) 12.5 mg PO DAILY [facility] Last Admin: 11/01/18 09:56 Dose: 12.5 mg - Objective Vital Signs: Vital Signs Temperature 97.9 F 11/01/18 14:00 Pulse Rate 97 H 11/01/18 14:00 Respiratory Rate 20 11/01/18 10:00 Blood Pressure 127/71 11/01/18 14:00 O2 Sat by Pulse Oximetry (%) 95 11/01/18 09:00 Constitutional: Yes: Obese Eyes: Yes: WNL HENT: Yes: WNL Neck: Yes: WNL Cardiovascular: Yes: S1, S2 (split) Respiratory: Yes: Regular Gastrointestinal: Yes: Abdomen, Obese, Ascites, Distention (chronic) ...Rectal Exam: Yes: Deferred Genitourinary: Yes: Anuria Breast(s): Yes: WNL Musculoskeletal: Yes: Joint Stiffness, Joint Swelling, Muscle Weakness Extremities: Yes: Cool Edema: Yes Edema: LLE: 2+, RLE: 2+ Peripheral Pulses WNL: Yes Integumentary: Yes: Erythema (mild) Neurological: Yes: Alert, Oriented Psychiatric: Yes: Alert, Oriented Labs: CBC, BMP 11/01/18 05:30 11/01/18 05:30 INR, PTT INR 1.59 (0.83-1.09) H 11/01/18 06:30 - ....Imaging Other: Image Reviewed (telemetry: AV pacing; periods of sinus rythym with 1st degree AVB) Problem List - Problems (1) Lower extremity edema Code(s): R60.0 - LOCALIZED EDEMA (2) AICD (automatic cardioverter/defibrillator) present Code(s): Z95.810 - PRESENCE OF AUTOMATIC (IMPLANTABLE) CARDIAC DEFIBRILLATOR (3) Acute on chronic systolic and diastolic heart failure, NYHA class 3 Assessment/Plan: Restarted Entresto. Continue metoprolol and spironolactone. F/u BUN/Cr, electrolytes, daily weight, Is and Os. Can discontinue telemetry. Pt has been offered meeting with heart failure group at [facility], [facility], or [facility]; until now, shw has been reluctant to go. Code(s): I50.43 - ACUTE ON CHRONIC COMBINED SYSTOLIC AND DIASTOLIC HRT FAIL (4) Anasarca Code(s): R60.1 - GENERALIZED EDEMA (5) Anemia Code(s): D64.9 - ANEMIA, UNSPECIFIED (6) Anxiety and depression Code(s): F41.9 - ANXIETY DISORDER, UNSPECIFIED; F32.9 - MAJOR DEPRESSIVE DISORDER, SINGLE EPISODE, UNSPECIFIED (7) Overweight Code(s): E66.3 - OVERWEIGHT (8) Smokes cigarettes Code(s): F17.210 - NICOTINE DEPENDENCE, CIGARETTES, UNCOMPLICATED (9) Diabetes Code(s): E11.9 - TYPE 2 DIABETES MELLITUS WITHOUT COMPLICATIONS Qualifiers: Diabetes mellitus type: type 2 Diabetes mellitus terminal makeup operator insulin use: with terminal makeup operator use Diabetes mellitus complication status: with unspecified complications (10) Hyperlipidemia Code(s): E78.5 - HYPERLIPIDEMIA, UNSPECIFIED (11) Hypertension Code(s): I10 - ESSENTIAL (PRIMARY) HYPERTENSION (12) Hypothyroidism Code(s): E03.9 - HYPOTHYROIDISM, UNSPECIFIED (13) Sleep apnea Code(s): G47.30 - SLEEP APNEA, UNSPECIFIED (14) Status post THR (total hip replacement) Code(s): Z96.649 - PRESENCE OF UNSPECIFIED ARTIFICIAL HIP JOINT
[2018-11-02] MEDS ORDERED: MORPHINE SULFATE 2 MG/ML VIAL IVPUSH ONE (02:29)
[2018-11-02] MEDS: FUROSEMIDE 40 MG/4 ML INJECTABLE VIAL IVPUSH SCH ×2 (06:22→13:51)
[2018-11-02] MEDS: HEPARIN NA (PORCINE) 5,000 UNITS/ML 1ML VIAL SQ SCH ×3 (06:22→22:22)
[2018-11-02] MEDS: LEVOTHYROXINE NA 75 MCG TABLET (FP) PO SCH (06:22)
[2018-11-02] MEDS: INSULIN SLIDING SCALE (NOVOLOG) 1 VIAL SQ SCH ×4 (07:32→22:21)
[2018-11-02 07:36] LABS: ALBUMIN 3.1 g/dl (3.4-5.0); BILIRUBIN,TOTAL 1.2 mg/dL (0.2-1); BLOOD UREA NITROGEN 22.7 mg/dL (7-18); CALCIUM 8.1 mg/dL (8.5-10.1); MAGNESIUM 1.8 mg/dL (1.8-2.4); PHOSPHOROUS 2.8 mg/dL (2.5-4.9); POTASSIUM 3.1 mmol/L (3.5-5.1); TOT PROT 6.6 g/dl (6.4-8.2)
[2018-11-02 07:50] LABS: HEMATOCRIT 29.5 % (32.4-45.2); HEMOGLOBIN 9.7 GM/dL (10.7-15.3); MCH 28.1 pg (25.7-33.7); MEAN PLT VOLUME 8.4 fl (7.5-11.1); PLATELET COUNT 189 K/MM3 (134-434); RBC 3.47 M/mm3 (3.60-5.2); RDW 15.2 % (11.6-15.6)
[2018-11-02] MEDS ORDERED: PT OWN MED DRAWER 7, Y5N ONE ×2 (09:19→22:00)
[2018-11-02] MEDS: SPIRONOLACTONE 25 MG TABLET (FP) PO SCH (09:23)
[2018-11-02] MEDS: metoPROLOL SUCCINATE 25 MG TAB.SR.24H (FP) PO SCH (09:23)
[2018-11-02] MEDS: CLOPIDOGREL BISULFATE 75 MG TABLET (FP) PO SCH (09:23)
[2018-11-02] MEDS: SACUBITRIL/VALSARTAN 24 MG-26 MG TABLET PO SCH ×2 (09:24→22:21)
--- NOTE | 2018-11-02 10:48 | PN ---
Progress Note (short form) - Note Progress Note: c/o leg pain. no change from arrival. denies CP, or SOB Current Medications Generic Name Dose Route Start Last Admin Trade Name Kamilah PRN Reason Stop Dose Admin Clopidogrel Bisulfate 75 mg 11/01/18 10:00 11/02/18 09:23 Plavix - PO 75 mg DAILY [facility] Administration Furosemide 80 mg 11/01/18 06:00 11/02/18 06:22 Lasix Injection - IVPUSH 80 mg BIDLASIX [facility] Administration Heparin Sodium (Porcine) 5,000 unit 10/31/18 22:00 11/02/18 06:22 Heparin - SQ 5,000 unit TID [facility] Administration Insulin Aspart 1 vial 10/31/18 16:30 11/02/18 07:32 Novolog Vial Sliding Scale - SQ Not Given ACHS [facility] Protocol Levothyroxine Sodium 75 mcg 11/01/18 07:00 11/02/18 06:22 Synthroid - PO 75 mcg DAILY@0700 [facility] Administration Metoprolol Succinate 75 mg 11/01/18 10:00 11/02/18 09:23 Toprol Xl - PO 75 mg DAILY [facility] Administration Sacubitril/Valsartan 1 tab 10/31/18 22:00 11/02/18 09:24 Entresto 24 Mg-26 Mg Tablet PO 1 tab BID [facility] Administration Spironolactone 12.5 mg 11/01/18 10:00 11/02/18 09:23 Aldactone - PO 12.5 mg DAILY [facility] Administration Last Vital Signs Temp Pulse Resp BP Pulse Ox 98.9 F 81 20 120/61 100 11/02/18 10:00 11/02/18 10:00 11/02/18 10:00 11/02/18 10:00 11/02/18 09:00 Intake & Output 10/30/18 10/31/18 11/01/18 11/02/18 23:59 23:59 23:59 23:59 Intake Total 728 50 Balance 728 50 Weight 174 lb 213 lb 12.8 oz General NAD CV S1 S2 RRR Lungs decreased B/L bases Abdomen soft low abdomen pain +ascites Extremites 3+ pitting B/L CBCD WBC 4.0 K/mm3 (4.0-10.0) 11/02/18 05:48 RBC 3.47 M/mm3 (3.60-5.2) L 11/02/18 05:48 Hgb 9.7 GM/dL (10.7-15.3) L 11/02/18 05:48 Hct 29.5 % (32.4-45.2) L 11/02/18 05:48 MCV 85.0 fl (80-96) 11/02/18 05:48 MCHC 33.0 g/dl (32.0-36.0) 11/02/18 05:48 RDW 15.2 % (11.6-15.6) 11/02/18 05:48 Plt Count 189 K/MM3 (134-434) 11/02/18 05:48 MPV 8.4 fl (7.5-11.1) 11/02/18 05:48 CMP Sodium 141 mmol/L (136-145) 11/02/18 05:48 Potassium 3.1 mmol/L (3.5-5.1) L 11/02/18 05:48 Chloride 103 mmol/L (98-107) 11/02/18 05:48 Carbon Dioxide 32 mmol/L (21-32) 11/02/18 05:48 Anion Gap 7 MMOL/L (8-16) L 11/02/18 05:48 BUN 22.7 mg/dL (7-18) H 11/02/18 05:48 Creatinine 1.0 mg/dL (0.55-1.3) 11/02/18 05:48 Calcium 8.1 mg/dL (8.5-10.1) L 11/02/18 05:48 Total Bilirubin 1.2 mg/dL (0.2-1) H 11/02/18 05:48 AST 13 U/L (15-37) L 11/02/18 05:48 ALT 10 U/L (13-61) L 11/02/18 05:48 Alkaline Phosphatase 80 U/L (45-117) 11/02/18 05:48 Total Protein 6.6 g/dl (6.4-8.2) 11/02/18 05:48 Albumin 3.1 g/dl (3.4-5.0) L 11/02/18 05:48 ASSESSMENT AND PLAN: 63yo F wtih PMH systolic CHF, afib, COPD, hypothyroid, DM and presented with LE edema and found to have mild tropinemia who was recently discharged earlier this week after being hospitalized for over a week for the same symptoms. 1. ACute on chronic systolic CHF-due to non compliance with meds and diet. on lasix 80mg BID IV. refuses to be weighed. spoke with cardio. will try to get patient into heart failure clinic to monitor more closely and assist in compliance. cardiac rehab on discharge. daily weights, strict I&O, water restriction. 2. Hypokalemia- Kcl po 3. hjypomagnesemia- Mg po 4. CKD- stable 5. hypothyroid- cont LT4 6. DM- hold oral agents. iss and bgm 7. DVT ppx- hep Visit type - Emergency Visit Emergency Visit: Yes ED Registration Date: 10/31/18 Care time: The patient presented to the Emergency Department on the above date and was hospitalized for further evaluation of their emergent condition. - New Patient This patient is new to me today: No - Critical Care Critical Care patient: No - Discharge Referral Referred to [facility] Med P.C.: No
[2018-11-02] MEDS ORDERED: MAGNESIUM OXIDE 400 MG TABLET (FP) PO ONE (11:03)
[2018-11-02] MEDS ORDERED: POTASSIUM CHLORIDE TABS 20 MEQ TABLET.ER (FP) PO ONE (11:03)
[2018-11-03] MEDS: INSULIN SLIDING SCALE (NOVOLOG) 1 VIAL SQ SCH ×4 (06:34→21:56)
[2018-11-03] MEDS: FUROSEMIDE 40 MG/4 ML INJECTABLE VIAL IVPUSH SCH ×2 (06:36→13:46)
[2018-11-03] MEDS: LEVOTHYROXINE NA 75 MCG TABLET (FP) PO SCH (06:36)
[2018-11-03] MEDS: HEPARIN NA (PORCINE) 5,000 UNITS/ML 1ML VIAL SQ SCH ×3 (06:38→21:51)
[2018-11-03 07:24] LABS: BLOOD UREA NITROGEN 24.1 mg/dL (7-18); CALCIUM 8.2 mg/dL (8.5-10.1); PHOSPHOROUS 3.1 mg/dL (2.5-4.9); POTASSIUM 3.5 mmol/L (3.5-5.1)
[2018-11-03 07:27] LABS: HEMATOCRIT 31.7 % (32.4-45.2); HEMOGLOBIN 10.1 GM/dL (10.7-15.3); MCH 27.6 pg (25.7-33.7); MCHC 31.7 g/dl (32.0-36.0); MEAN CELL VOLUME 87.1 fl (80-96); MEAN PLT VOLUME 8.6 fl (7.5-11.1); RBC 3.64 M/mm3 (3.60-5.2); RDW 15.8 % (11.6-15.6)
[2018-11-03 08:23] LABS: PLATELET COUNT 202 K/MM3 (134-434)
[2018-11-03] MEDS: CLOPIDOGREL BISULFATE 75 MG TABLET (FP) PO SCH (09:09)
[2018-11-03] MEDS: metoPROLOL SUCCINATE 25 MG TAB.SR.24H (FP) PO SCH (09:10)
--- NOTE | 2018-11-03 09:50 | PN ---
Physical Exam: SUBJECTIVE: Patient seen and examined. No acute events overnight. Patient says she was uncomfortable all night and did not sleep well. OBJECTIVE: Vital Signs Period Temp Pulse Resp BP Sys/Santoro Pulse Ox Last 24 Hr 97.6 F-98.9 F 54-81 18-20 91-120/53-76 95 GENERAL: The patient is awake, alert, and fully oriented, in no acute distress. HEAD: Normal with no signs of trauma. EYES: PERRL, extraocular movements intact ENT: moist mucous membranes. LUNGS: Breath sounds equal, clear to auscultation bilaterally HEART: Regular rate and rhythm, S1, S2 without murmur, rub or gallop. ABDOMEN: tenderness on palpation EXTREMITIES: 2+ pitting edema SKIN: Warm, dry, normal turgor, no rashes or lesions noted Laboratory Results - last 24 hr 11/02/18 11/02/18 11/03/18 18:12 22:21 05:27 WBC 4.0 RBC 3.64 Hgb 10.1 L Hct 31.7 L MCV 87.1 MCH 27.6 MCHC 31.7 L RDW 15.8 H Plt Count 202 MPV 8.6 Sodium Potassium Chloride Carbon Dioxide Anion Gap BUN Creatinine Est GFR (CKD-EPI)AfAm Est GFR (CKD-EPI)NonAf POC Glucometer 90 78 Random Glucose Calcium Phosphorus Magnesium 11/03/18 11/03/18 05:27 06:19 WBC RBC Hgb Hct MCV MCH MCHC RDW Plt Count MPV Sodium 140 Potassium 3.5 Chloride 101 Carbon Dioxide 31 Anion Gap 8 BUN 24.1 H Creatinine 1.0 Est GFR (CKD-EPI)AfAm 68.47 Est GFR (CKD-EPI)NonAf 59.07 POC Glucometer 76 Random Glucose 70 L Calcium 8.2 L Phosphorus 3.1 Magnesium 2.0 Active Medications Generic Name Dose Route Start Last Admin Trade Name Freq PRN Reason Stop Dose Admin Clopidogrel Bisulfate 75 mg 11/01/18 10:00 11/03/18 09:09 Plavix - PO 75 mg DAILY [facility] Administration Furosemide 80 mg 11/01/18 06:00 11/03/18 06:36 Lasix Injection - IVPUSH 80 mg BIDLASIX [facility] Administration Heparin Sodium (Porcine) 5,000 unit 10/31/18 22:00 11/03/18 06:38 Heparin - SQ 5,000 unit TID [facility] Administration Insulin Aspart 1 vial 10/31/18 16:30 11/03/18 06:34 Novolog Vial Sliding Scale - SQ Not Given ACHS [facility] Protocol Levothyroxine Sodium 75 mcg 11/01/18 07:00 11/03/18 06:36 Synthroid - PO 75 mcg DAILY@0700 [facility] Administration Metoprolol Succinate 75 mg 11/01/18 10:00 11/03/18 09:10 Toprol Xl - PO 75 mg DAILY [facility] Administration Sacubitril/Valsartan 1 tab 10/31/18 22:00 11/02/18 22:21 Entresto 24 Mg-26 Mg Tablet PO Not Given BID [facility] Spironolactone 12.5 mg 11/01/18 10:00 11/02/18 09:23 Aldactone - PO 12.5 mg DAILY [facility] Administration ASSESSMENT/PLAN: 63 yo F wt PMH systolic CHF, afib, COPD, hypothyroid, DM and presented with LE edema and found to have mild tropinemia who was recently discharged earlier this week after being hospitalized for over a week for the same symptoms. #Acute on chronic systolic CHF -2/2 to noncompliance with medications -cont. Lasix 80mg IV BID -FU cardio reccs -will need cardiac rehab -daily weights, strict i's/o's -water restriction #CKD -stable #CAD 2/p 2 stents - continue plavix - continue metoprolol #hypothyroidism - continue synthroid #DM -SSI -BGm #FEN -no iv fluids -monitor lytes -diabetic diet #DVT ppx -hep sq Visit type - Emergency Visit Emergency Visit: Yes ED Registration Date: 10/31/18 Care time: The patient presented to the Emergency Department on the above date and was hospitalized for further evaluation of their emergent condition. - New Patient This patient is new to me today: Yes Date on this admission: 11/03/18 - Critical Care Critical Care patient: No
--- NOTE | 2018-11-03 11:08 | PN ---
Teaching Attending Note Name of Resident: Colleen Garcia ATTENDING PHYSICIAN STATEMENT I saw and evaluated the patient. I reviewed the resident's note and discussed the case with the resident. I agree with the resident's findings and plan as documented. SUBJECTIVE:c/o leg pain, states no improvement since yesterday.denies CP, SOB, fever, chills OBJECTIVE: Last Vital Signs Temp Pulse Resp BP Pulse Ox 98.4 F 64 22 H 99/60 92 L 11/03/18 10:00 11/03/18 10:00 11/03/18 10:00 11/03/18 10:11/03/18 09:00 Intake & Output 10/31/18 11/01/18 11/02/18 11/03/18 23:59 23:59 23:59 23:59 Intake Total 728 810 290 Balance 728 810 290 Weight 174 lb 213 lb 12.8 oz General NAD Extremities 2+ pitting edema B/L LE ASSESSMENT AND PLAN: 63yo F wtih PMH systolic CHF, afib, COPD, hypothyroid, DM and presented with LE edema and found to have mild tropinemia who was recently discharged earlier this week after being hospitalized for over a week for the same symptoms. 1. ACute on chronic systolic CHF-due to non compliance with meds and diet. on lasix 80mg BID IV. refuses to be weighed. spoke with cardio. will try to get patient into heart failure clinic to monitor more closely and assist in compliance. cardiac rehab on discharge. daily weights, strict I&O, water restriction. 2. Hypokalemia- Kcl po 3. hjypomagnesemia- Mg po 4. CKD- stable 5. hypothyroid- cont LT4 6. DM- hold oral agents. iss and bgm 7. DVT ppx- hep
[2018-11-03] MEDS: SACUBITRIL/VALSARTAN 24 MG-26 MG TABLET PO SCH ×2 (11:52→21:51)
[2018-11-03] MEDS: SPIRONOLACTONE 25 MG TABLET (FP) PO SCH (11:52)
[2018-11-04] MEDS: INSULIN SLIDING SCALE (NOVOLOG) 1 VIAL SQ SCH ×3 (06:05→21:34)
[2018-11-04] MEDS: FUROSEMIDE 40 MG/4 ML INJECTABLE VIAL IVPUSH SCH ×2 (06:13→14:18)
[2018-11-04] MEDS: LEVOTHYROXINE NA 75 MCG TABLET (FP) PO SCH (06:14)
[2018-11-04] MEDS: HEPARIN NA (PORCINE) 5,000 UNITS/ML 1ML VIAL SQ SCH ×3 (06:19→21:34)
[2018-11-04 08:02] LABS: HEMATOCRIT 29.9 % (32.4-45.2); HEMOGLOBIN 9.7 GM/dL (10.7-15.3); MCH 27.5 pg (25.7-33.7); MCHC 32.4 g/dl (32.0-36.0); MEAN CELL VOLUME 84.8 fl (80-96); MEAN PLT VOLUME 8.2 fl (7.5-11.1); RBC 3.52 M/mm3 (3.60-5.2); RDW 15.5 % (11.6-15.6); WHITE BLOOD COUNT 3.8 K/mm3 (4.0-10.0)
[2018-11-04] MEDS ORDERED: PT OWN MED DRAWER 7, Y5N ONE (08:27)
[2018-11-04 08:30] LABS: ALBUMIN 3.1 g/dl (3.4-5.0); BILIRUBIN,TOTAL 1.2 mg/dL (0.2-1); BLOOD UREA NITROGEN 23.7 mg/dL (7-18); CALCIUM 8.5 mg/dL (8.5-10.1); CREATININE 0.8 mg/dL (0.55-1.3); POTASSIUM 3.2 mmol/L (3.5-5.1); TOT PROT 6.6 g/dl (6.4-8.2)
--- NOTE | 2018-11-04 08:47 | PN ---
Progress Note, Physician History of Present Illness: Ms. Prado is a 63 year old black woman with PMHx of HTN, HLD, DM, severe systolic CHF-->ICD, CAD, [place] s/p CABG, cigarettes, chornic abdominal pain post cholecystectomy, anxiety/depression, who presents for evaluation of lower extremity pain. The patient reports worsening lower extremity edema and pain over the past few weeks. She was recently admitted about 2 weeks ago for similar symptoms. She denies SOB, fevers, chills, chest pain, nausea, vomiting , abdominal pain, or changes with urination or bowel movements. - Current Medication List Current Medications: Active Medications Clopidogrel Bisulfate (Plavix -) 75 mg PO DAILY [facility] Last Admin: 11/03/18 09:09 Dose: 75 mg Furosemide (Lasix Injection -) 80 mg IVPUSH BIDLASIX [facility] Last Admin: 11/04/18 06:13 Dose: 80 mg Heparin Sodium (Porcine) (Heparin -) 5,000 unit SQ TID [facility] Last Admin: 11/04/18 06:19 Dose: 5,000 unit Insulin Aspart (Novolog Vial Sliding Scale -) 1 vial SQ ACHS [facility]; Protocol Last Admin: 11/04/18 06:05 Dose: Not Given Levothyroxine Sodium (Synthroid -) 75 mcg PO DAILY@0700 [facility] Last Admin: 11/04/18 06:14 Dose: 75 mcg Metoprolol Succinate (Toprol Xl -) 75 mg PO DAILY [facility] Last Admin: 11/03/18 09:10 Dose: 75 mg Sacubitril/Valsartan (Entresto 24 Mg-26 Mg Tablet) 1 tab PO BID [facility] Last Admin: 11/03/18 21:51 Dose: 1 tab Spironolactone (Aldactone -) 12.5 mg PO DAILY [facility] Last Admin: 11/03/18 11:52 Dose: Not Given - Objective Vital Signs: Vital Signs Temperature 97.4 F L 11/04/18 06:00 Pulse Rate 68 11/04/18 06:00 Respiratory Rate 18 11/04/18 06:00 Blood Pressure 100/47 L 11/04/18 06:00 O2 Sat by Pulse Oximetry (%) 100 11/03/18 21:00 Eyes: Yes: WNL, Conjunctiva Clear, EOM Intact HENT: Yes: WNL, Atraumatic, Normocephalic Neck: Yes: WNL, Supple, Trachea Midline Cardiovascular: Yes: WNL, Regular Rate and Rhythm Respiratory: Yes: WNL, Regular, CTA Bilaterally Gastrointestinal: Yes: WNL, Normal Bowel Sounds Genitourinary: Yes: WNL Musculoskeletal: Yes: WNL Extremities: Yes: WNL Edema: Yes Integumentary: Yes: WNL Neurological: Yes: WNL, Alert, Oriented ...Motor Strength: WNL Psychiatric: Yes: WNL Labs: CBC, BMP 11/04/18 06:10 INR, PTT INR 1.59 (0.83-1.09) H 11/01/18 06:30 Assessment/Plan Problems (1) Lower extremity edema Code(s): R60.0 - LOCALIZED EDEMA (2) AICD (automatic cardioverter/defibrillator) present Code(s): Z95.810 - PRESENCE OF AUTOMATIC (IMPLANTABLE) CARDIAC DEFIBRILLATOR (3) Acute on chronic systolic and diastolic heart failure, NYHA class 3 Assessment/Plan: Restart Entresto. Continue metoprolol and spironolactone. F/u BUN/Cr, electrolytes, daily weight, Is and Os. Code(s): I50.43 - ACUTE ON CHRONIC COMBINED SYSTOLIC AND DIASTOLIC HRT FAIL (4) Anasarca Code(s): R60.1 - GENERALIZED EDEMA (5) Anemia Code(s): D64.9 - ANEMIA, UNSPECIFIED (6) Anxiety and depression Code(s): F41.9 - ANXIETY DISORDER, UNSPECIFIED; F32.9 - MAJOR DEPRESSIVE DISORDER, SINGLE EPISODE, UNSPECIFIED (7) Overweight Code(s): E66.3 - OVERWEIGHT (8) Smokes cigarettes Code(s): F17.210 - NICOTINE DEPENDENCE, CIGARETTES, UNCOMPLICATED (9) Diabetes Code(s): E11.9 - TYPE 2 DIABETES MELLITUS WITHOUT COMPLICATIONS Qualifiers: Diabetes mellitus type: type 2 Diabetes mellitus senior care insulin use: with terminologist use Diabetes mellitus complication status: with unspecified complications (10) Hyperlipidemia Code(s): E78.5 - HYPERLIPIDEMIA, UNSPECIFIED (11) Hypertension Code(s): I10 - ESSENTIAL (PRIMARY) HYPERTENSION (12) Hypothyroidism Code(s): E03.9 - HYPOTHYROIDISM, UNSPECIFIED (13) Sleep apnea Code(s): G47.30 - SLEEP APNEA, UNSPECIFIED (14) Status post THR (total hip replacement) Code(s): Z96.649 - PRESENCE OF UNSPECIFIED ARTIFICIAL HIP JOINT
[2018-11-04 09:11] LABS: PLATELET COUNT 193 K/MM3 (134-434)
[2018-11-04] MEDS: KCL 10 MEQ IVPB 10 MEQ/100 ML INFUS.BAG IVPB SCH ×2 (09:54→10:41)
[2018-11-04] MEDS: SACUBITRIL/VALSARTAN 24 MG-26 MG TABLET PO SCH ×2 (09:55→21:34)
[2018-11-04] MEDS: CLOPIDOGREL BISULFATE 75 MG TABLET (FP) PO SCH (09:55)
[2018-11-04] MEDS: metoPROLOL SUCCINATE 25 MG TAB.SR.24H (FP) PO SCH (09:56)
[2018-11-04] MEDS: SPIRONOLACTONE 25 MG TABLET (FP) PO SCH (09:56)
[2018-11-04] MEDS ORDERED: POTASSIUM CHLORIDE TABS 20 MEQ TABLET.ER (FP) PO ONE (11:00)
--- NOTE | 2018-11-04 11:48 | PN ---
Teaching Attending Note Name of Resident: Emperatriz Dubon ATTENDING PHYSICIAN STATEMENT I saw and evaluated the patient. I reviewed the resident's note and discussed the case with the resident. I agree with the resident's findings and plan as documented. SUBJECTIVE:continues to have leg pain. denies CP, SOB, fever, chills, N/V/C/D OBJECTIVE: Last Vital Signs Temp Pulse Resp BP Pulse Ox 97.9 F 59 L 18 123/65 100 11/04/18 10:00 11/04/18 10:00 11/04/18 10:00 11/04/18 10:00 11/04/18 09:00 Intake & Output 11/01/18 11/02/18 11/03/18 11/04/18 23:59 23:59 23:59 23:59 Intake Total 141 887 3095 390 Balance 604 805 5869 390 Weight 213 lb 12.8 oz 221 lb 12.8 oz General NAD Lungs decreased B/L bases Extremities 2+ pitting edema B/L LE ASSESSMENT AND PLAN: 63yo F wtih PMH systolic CHF, afib, COPD, hypothyroid, DM and presented with LE edema and found to have mild tropinemia who was recently discharged earlier this week after being hospitalized for over a week for the same symptoms. 1. ACute on chronic systolic CHF-due to non compliance with meds and diet. on lasix 80mg BID IV. some modest improvement clinically. do not believe weights as they seem to fluctuate widely. pt refusing cardiac rehab but agreeable to have heart failure RN evaluate her at home periodically to assess volume status and assist in treatment. monitor electrolyes. daily weights, strict I&O, water restriction. 2. Hypokalemia- Kcl po and IV x1 3. hjypomagnesemia- resolved 4. CKD- stable 5. hypothyroid- cont LT4 6. DM- hold oral agents. iss and bgm 7. DVT ppx- hep
--- NOTE | 2018-11-04 14:02 | PN ---
Progress Note, Physician - Current Medication List Current Medications: Active Medications Clopidogrel Bisulfate (Plavix -) 75 mg PO DAILY [facility] Last Admin: 11/04/18 09:55 Dose: 75 mg Furosemide (Lasix Injection -) 80 mg IVPUSH BIDLASIX [facility] Last Admin: 11/04/18 06:13 Dose: 80 mg Heparin Sodium (Porcine) (Heparin -) 5,000 unit SQ TID [facility] Last Admin: 11/04/18 06:19 Dose: 5,000 unit Insulin Aspart (Novolog Vial Sliding Scale -) 1 vial SQ ACHS [facility]; Protocol Last Admin: 11/04/18 11:38 Dose: Not Given Levothyroxine Sodium (Synthroid -) 75 mcg PO DAILY@0700 [facility] Last Admin: 11/04/18 06:14 Dose: 75 mcg Metoprolol Succinate (Toprol Xl -) 75 mg PO DAILY [facility] Last Admin: 11/04/18 09:56 Dose: 75 mg Sacubitril/Valsartan (Entresto 24 Mg-26 Mg Tablet) 1 tab PO BID [facility] Last Admin: 11/04/18 09:55 Dose: 1 tab Spironolactone (Aldactone -) 12.5 mg PO DAILY [facility] Last Admin: 11/04/18 09:56 Dose: 12.5 mg - Objective Vital Signs: Vital Signs Temperature 97.9 F 11/04/18 10:00 Pulse Rate 59 L 11/04/18 10:00 Respiratory Rate 18 11/04/18 10:00 Blood Pressure 123/65 11/04/18 10:00 O2 Sat by Pulse Oximetry (%) 100 11/04/18 09:00 Labs: CBC, BMP 11/04/18 06:10 11/04/18 06:10 INR, PTT INR 1.59 (0.83-1.09) H 11/01/18 06:30 Problem List - Problems (1) Lower extremity edema Code(s): R60.0 - LOCALIZED EDEMA (2) AICD (automatic cardioverter/defibrillator) present Code(s): Z95.810 - PRESENCE OF AUTOMATIC (IMPLANTABLE) CARDIAC DEFIBRILLATOR (3) Acute on chronic systolic and diastolic heart failure, NYHA class 3 Code(s): I50.43 - ACUTE ON CHRONIC COMBINED SYSTOLIC AND DIASTOLIC HRT FAIL (4) Anasarca Code(s): R60.1 - GENERALIZED EDEMA (5) Anemia Code(s): D64.9 - ANEMIA, UNSPECIFIED (6) Anxiety and depression Code(s): F41.9 - ANXIETY DISORDER, UNSPECIFIED; F32.9 - MAJOR DEPRESSIVE DISORDER, SINGLE EPISODE, UNSPECIFIED (7) Overweight Code(s): E66.3 - OVERWEIGHT (8) Smokes cigarettes Code(s): F17.210 - NICOTINE DEPENDENCE, CIGARETTES, UNCOMPLICATED (9) Diabetes Code(s): E11.9 - TYPE 2 DIABETES MELLITUS WITHOUT COMPLICATIONS Qualifiers: Diabetes mellitus type: type 2 Diabetes mellitus intern brand insulin use: with detention use Diabetes mellitus complication status: with unspecified complications (10) Hyperlipidemia Code(s): E78.5 - HYPERLIPIDEMIA, UNSPECIFIED (11) Hypertension Code(s): I10 - ESSENTIAL (PRIMARY) HYPERTENSION (12) Hypothyroidism Code(s): E03.9 - HYPOTHYROIDISM, UNSPECIFIED (13) Sleep apnea Code(s): G47.30 - SLEEP APNEA, UNSPECIFIED (14) Status post THR (total hip replacement) Code(s): Z96.649 - PRESENCE OF UNSPECIFIED ARTIFICIAL HIP JOINT
--- NOTE | 2018-11-04 15:28 | DS ---
Physical Exam: SUBJECTIVE: Patient seen and examined. Complaints of chronic pain. OBJECTIVE: Vital Signs Temperature 97.6 F 11/05/18 06:00 Pulse Rate 65 11/05/18 06:00 Respiratory Rate 20 11/05/18 09:00 Blood Pressure 114/58 L 11/05/18 06:00 O2 Sat by Pulse Oximetry (%) 95 11/05/18 09:00 PHYSICAL EXAM GENERAL: The patient is awake, alert, and fully oriented, in no acute distress. HEAD: Normal with no signs of trauma. EYES: PERRL, extraocular movements intact ENT: moist mucous membranes. LUNGS: Breath sounds equal, clear to auscultation bilaterally HEART: Regular rate and rhythm, S1, S2 without murmur, rub or gallop. ABDOMEN: tenderness on palpation EXTREMITIES: 2+ pitting edema SKIN: Warm, dry, normal turgor, no rashes or lesions noted LABS CBC, BMP 11/04/18 06:10 11/04/18 06:10 HOSPITAL COURSE: Date of Admission:10/31/18 Patient presented to the hospital for CHF exacerbation. Patient was recently in the hospital for similar complaints. While she was here her medications were optimized. She will continue furosemide 80 mg in the morning, 40 mg in the evening, continue aldactone, metoprolol and entresto. Patient will be encouraged to closely follow up with her gas furnace installer and PCP. Patient set up with VNS services, the nurses are specialized in CHF. Patient stable for discharge. CXR: slight congestion Date of Discharge: 11/04/18 Minutes to complete discharge: 40 Discharge Summary Reason For Visit: EDEMA OF LOWER EXTREMITY Current Active Problems CHF exacerbation (Acute) Lower extremity edema (Chronic) Condition: Improved - Instructions Diet, Activity, Other Instructions: You were admitted to the hospital because of your heart failure. While you were here we optimized your medications to treat your heart. For your heart please continue to take: Entresto 1 pill twice a day by mouth Metoprolol 75 mg once a day by mouth Furosemide (lasix) 80 mg in the morning and 40 mg in the evening by mouth, please take every day Spironolactone 12.5 mg once a day by mouth Please continue your other home medications as prescribed. It is very important that you follow up with your Mud Grinder, Dr. Cage. You need to follow up with him regularly so the function of your heart can be monitored. You are going to have nursing services come to your house and help you with your medication, it is very important that you take all your medication and follow the instructions as per the nurse. The nurse is going to help you manage your CHF ( congested heart failure). PLease limit the amount of water you drink to less than 1 liter per day. Weigh yourself daily, document your readings and call your gas furnace installer if you see more than a 2 pound increase You should weigh yourself everyday. Your lasix medication helps bring down your water weight. It is very important that your lasix medication is taken everyday , if your weight is increasing you can take an extra lasix pill ( 40 mg). Please discuss this further with your gas furnace installer, Dr. Cage. Please also follow up with your PCP within 1 week. At that time you need a repeat BMP ( blood work) done to monitor your kidney and liver function. Please return to the emergency department if you have worsening of symptoms, chest pain, nausea, diarrhea, or dizziness. Referrals: Dick Cage MD [Staff Physician] - Disposition: HOME - Home Medications Comprehensive Discharge Medication List: Ambulatory Orders Clopidogrel Bisulfate [Plavix -] 75 mg PO DAILY #30 tablet 08/02/17 Levothyroxine [Synthroid -] 75 mcg PO DAILY@0700 30 Days #30 tablet 08/02/17 Furosemide [Lasix -] 40 mg PO DAILY #30 tablet 10/22/18 Furosemide [Lasix] 80 mg PO DAILY #30 tablet 10/22/18 Metoprolol Succinate [Toprol XL -] 75 mg PO DAILY #90 tab.sr.24h 10/22/18 Sacubitril/Valsartan [Entresto 24 mg-26 mg Tablet] 1 each PO DAILY #30 tablet Spironolactone 12.5 mg PO DAILY #15 tablet 10/22/18 This patient is new to me today: No Emergency Visit: No Critical Care patient: No - Discharge Referral Referred to [facility] Med P.C.: No
[2018-11-05] MEDS: INSULIN SLIDING SCALE (NOVOLOG) 1 VIAL SQ SCH (06:09)
[2018-11-05] MEDS: LEVOTHYROXINE NA 75 MCG TABLET (FP) PO SCH (06:15)
[2018-11-05] MEDS: HEPARIN NA (PORCINE) 5,000 UNITS/ML 1ML VIAL SQ SCH (06:18)
[2018-11-05] MEDS: FUROSEMIDE 40 MG/4 ML INJECTABLE VIAL IVPUSH SCH (06:18)
[2018-11-05 06:41] VITALS: BP 114/58; PULSE 65; TEMP 97.6
--- NOTE | 2018-11-05 09:01 | PN ---
Physical Exam: SUBJECTIVE: Patient unable to get home yesterday, VNS will be set up today. OBJECTIVE: Vital Signs Temperature 97.6 F 11/05/18 06:00 Pulse Rate 65 11/05/18 06:00 Respiratory Rate 20 11/05/18 06:00 Blood Pressure 114/58 L 11/05/18 06:00 O2 Sat by Pulse Oximetry (%) 95 11/04/18 21:00 GGENERAL: The patient is awake, alert, and fully oriented, in no acute distress. HEAD: Normal with no signs of trauma. EYES: PERRL, extraocular movements intact ENT: moist mucous membranes. LUNGS: Breath sounds equal, clear to auscultation bilaterally HEART: Regular rate and rhythm, S1, S2 without murmur, rub or gallop. ABDOMEN: tenderness on palpation EXTREMITIES: 2+ pitting edema SKIN: Warm, dry, normal turgor, no rashes or lesions noted CBC, BMP 11/04/18 06:10 11/04/18 06:10 Active Medications Clopidogrel Bisulfate (Plavix -) 75 mg PO DAILY [facility] Last Admin: 11/04/18 09:55 Dose: 75 mg Furosemide (Lasix Injection -) 80 mg IVPUSH BIDLASIX [facility] Last Admin: 11/05/18 06:18 Dose: 80 mg Heparin Sodium (Porcine) (Heparin -) 5,000 unit SQ TID [facility] Last Admin: 11/05/18 06:18 Dose: 5,000 unit Insulin Aspart (Novolog Vial Sliding Scale -) 1 vial SQ ACHS [facility]; Protocol Last Admin: 11/05/18 06:09 Dose: Not Given Levothyroxine Sodium (Synthroid -) 75 mcg PO DAILY@0700 [facility] Last Admin: 11/05/18 06:15 Dose: 75 mcg Metoprolol Succinate (Toprol Xl -) 75 mg PO DAILY [facility] Last Admin: 11/04/18 09:56 Dose: 75 mg Sacubitril/Valsartan (Entresto 24 Mg-26 Mg Tablet) 1 tab PO BID [facility] Last Admin: 11/04/18 21:34 Dose: 1 tab Spironolactone (Aldactone -) 12.5 mg PO DAILY [facility] Last Admin: 11/04/18 09:56 Dose: 12.5 mg ASSESSMENT/PLAN: Patient is a 63 y/o female with a history of CHFrEF (25%) s/p ACID, HTN, DM, CAD s/p 2 stents who is admitted for CHF #CHFrEF ( 25%) - Last Echo: LV severly dilated, LV severly reduced, global hypokinesis, EF 25 % - continue entresto 1 tab BID - continue spironolactone 12.5 daily - monitor I's and O's - low sodium diet - daily weights - f/u with [facility] - lasix 80 BID - O2 5 L NC - refusing cardiac rehab #abdominal pain - chronic, last CT 10/03 nothing abnormal - T bili 1.5, higher on past admissions #DM - SS - BGM ACHS #CAD 2/p 2 stents - continue plavix - continue metoprolol #hypothyroidism - continue synthroid #DVT ppx - heparin TID FEN - sodium/diabetic diet - monitor daily lytes - repleted magnesium and potassium monitor tomorrow Dispo: will leave today, patient set up with VNS and CHF nursing Visit type - Emergency Visit Emergency Visit: No - New Patient This patient is new to me today: No - Critical Care Critical Care patient: No
[2018-11-05] MEDS: metoPROLOL SUCCINATE 25 MG TAB.SR.24H (FP) PO SCH (09:51)
[2018-11-05] MEDS: CLOPIDOGREL BISULFATE 75 MG TABLET (FP) PO SCH (09:51)
[2018-11-05] MEDS: SACUBITRIL/VALSARTAN 24 MG-26 MG TABLET PO SCH (09:51)
[2018-11-05] MEDS: SPIRONOLACTONE 25 MG TABLET (FP) PO SCH (09:51)
--- NOTE | 2018-11-05 11:09 | PN ---
Progress Note, Physician Chief Complaint: Pt A&Ox3; feels better (less foot pain); denies chest pain; + dyspnea on mild exertion. History of Present Illness: Ms. Prado is a 63 year old black woman with PMHx of HTN, HLD, DM, severe systolic CHF-->ICD, CAD, MD s/p CABG, cigarettes, chornic abdominal pain post cholecystectomy, anxiety/depression, who presents for evaluation of lower extremity pain. The patient reports worsening lower extremity edema and pain over the past few weeks. She was recently admitted about 2 weeks ago for similar symptoms. She denies SOB, fevers, chills, chest pain, nausea, vomiting , abdominal pain, or changes with urination or bowel movements. - Objective Vital Signs: Vital Signs Temperature 97.6 F 11/05/18 06:00 Pulse Rate 65 11/05/18 06:00 Respiratory Rate 20 11/05/18 09:00 Blood Pressure 114/58 L 11/05/18 06:00 O2 Sat by Pulse Oximetry (%) 95 11/05/18 09:00 Constitutional: Yes: No Distress Eyes: Yes: WNL HENT: Yes: WNL Labs: CBC, BMP 11/04/18 06:10 11/04/18 06:10 INR, PTT INR 1.59 (0.83-1.09) H 11/01/18 06:30 Problem List - Problems (1) Lower extremity edema Code(s): R60.0 - LOCALIZED EDEMA (2) AICD (automatic cardioverter/defibrillator) present Code(s): Z95.810 - PRESENCE OF AUTOMATIC (IMPLANTABLE) CARDIAC DEFIBRILLATOR (3) Acute on chronic systolic and diastolic heart failure, NYHA class 3 Assessment/Plan: Restarted Entresto. Continue metoprolol and spironolactone. F/u BUN/Cr, electrolytes, daily weight, Is and Os. Can discontinue telemetry. Pt has been offered meeting with heart failure group at [facility], [facility], or [facility]; until now, shw has been reluctant to go. She will be followed as an outpatient in our office next week. Code(s): I50.43 - ACUTE ON CHRONIC COMBINED SYSTOLIC AND DIASTOLIC HRT FAIL (4) Anasarca Code(s): R60.1 - GENERALIZED EDEMA (5) Anemia Code(s): D64.9 - ANEMIA, UNSPECIFIED (6) Anxiety and depression Code(s): F41.9 - ANXIETY DISORDER, UNSPECIFIED; F32.9 - MAJOR DEPRESSIVE DISORDER, SINGLE EPISODE, UNSPECIFIED (7) Overweight Code(s): E66.3 - OVERWEIGHT (8) Smokes cigarettes Code(s): F17.210 - NICOTINE DEPENDENCE, CIGARETTES, UNCOMPLICATED (9) Diabetes Code(s): E11.9 - TYPE 2 DIABETES MELLITUS WITHOUT COMPLICATIONS Qualifiers: Diabetes mellitus type: type 2 Diabetes mellitus nurse discharge planner insulin use: with nurse discharge planner use Diabetes mellitus complication status: with unspecified complications (10) Hyperlipidemia Code(s): E78.5 - HYPERLIPIDEMIA, UNSPECIFIED (11) Hypertension Code(s): I10 - ESSENTIAL (PRIMARY) HYPERTENSION (12) Hypothyroidism Code(s): E03.9 - HYPOTHYROIDISM, UNSPECIFIED (13) Sleep apnea Code(s): G47.30 - SLEEP APNEA, UNSPECIFIED (14) Status post THR (total hip replacement) Code(s): Z96.649 - PRESENCE OF UNSPECIFIED ARTIFICIAL HIP JOINT
--- NOTE | 2018-11-05 12:06 | PN ---
Teaching Attending Note Name of Resident: Emperatriz Dubon ATTENDING PHYSICIAN STATEMENT I saw and evaluated the patient. I reviewed the resident's note and discussed the case with the resident. I agree with the resident's findings and plan as documented. SUBJECTIVE: No complaints - no SOB. OBJECTIVE: Afebrile, Hemodynamically Stable. Last Vital Signs Temp Pulse Resp BP Pulse Ox 97.6 F 65 20 114/58 L 95 11/05/18 06:00 11/05/18 06:00 11/05/18 09:00 11/05/18 06:00 11/05/18 09:00 HEENT - Atraumatic, Normocephalic. Heart - S1, S2, RRR Lungs - decreased air entry at bases. Abdomen - Soft, non-tender. Bowel Sounds normal. Extremities - bilateral LE edema. Laboratory Results - last 24 hr 11/04/18 11/05/18 21:32 05:37 POC Glucometer 90 77 Discharge Medications Medication Instructions Recorded Clopidogrel Bisulfate [Plavix -] 75 mg PO DAILY #30 tablet 08/02/17 Levothyroxine [Synthroid -] 75 mcg PO DAILY@0700 30 Days #30 08/02/17 tablet Furosemide [Lasix -] 40 mg PO DAILY #30 tablet 10/22/18 Furosemide [Lasix] 80 mg PO DAILY #30 tablet 10/22/18 Metoprolol Succinate [Toprol XL -] 75 mg PO DAILY #90 tab.sr.24h 10/22/18 Sacubitril/Valsartan [Entresto 24 1 each PO DAILY #30 tablet 10/22/18 mg-26 mg Tablet] Spironolactone 12.5 mg PO DAILY #15 tablet 10/22/18 ASSESSMENT AND PLAN: 63 year old female with Chronic Systolic CHF, Atrial Fibrillation, CRF sec to COPD (on 2L home O2), hypothyroidism, DM 2, presented with SOB and LE edema, found to have mild troponin elevation, and has multiple admissions for the same. 1. Acute on chronic systolic CHF - due to non compliance with home meds and diet. Echo 09/25/18 - severe Global hypokinesesis of LV and severe MR/TR. Transitioned back to oral LAsix from IV Refuses Cardiac Rehab but agrees for VNS and Heart Failure Nurse visits. Importance of medication compliance and Caridology follow up appointments emphasized. 2. Hypokalemia- repleted. 3. CKD 3 - Stable. 4. Hypothyroidism - Continue Synthroid. 5. DM 2 - A1C 5.8. Appears diet controlled. PCP follow up. 6. HTN - Continue Metoprolol, Entresto, Spironololactone. 7. CRF sec to COPD - Stable. Continue Home O2. 8. Troponin Egression - chronic - likely sec to dilated cardiomyopathy, +/- demand due to CHF decompensation. No chest pain. Further management as per Cardio as out-patient. 9. Uterine Fibroids - no blood loss. for out-patient Gynecology follow up. 10. CAD (s/p CO x 2, s/p CABG, s/p 2x stents) - Continue with Plavix, BB, ARB 11. Possible JORDY/OHS - Required BiPAP at night on last admission due to CO2 narcosis. For outpatient Pulmonary follow up and sleep study. Patient was discharged yesterday - no family members were available to take her home - now ready to go home in the care of her daughter who was at bedside at the time of my interview.
== END 2018-11-05 11:03 | disposition home or self-care (01) | DRG 682 ==
LOC: JER 11:09 → JERBED 15:22 → J4W 11-01 01:00
PROVIDERS: ADMIT Internal Medicine
DX: N18.9 Chronic kidney disease, unspecified (principal); I50.43 Acute on chronic combined systolic (congestive) and diastolic (congestive) heart failure; I13.0 Hypertensive heart and chronic kidney disease with heart failure and stage 1 through stage 4 chronic kidney disease, or unspecified chronic kidney disease; I25.2 Old myocardial infarction; E78.5 Hyperlipidemia, unspecified; R60.0 Localized edema; I25.10 Atherosclerotic heart disease of native coronary artery without angina pectoris; N18.3 Chronic kidney disease, stage 3 (moderate); E11.22 Type 2 diabetes mellitus with diabetic chronic kidney disease; E87.6 Hypokalemia; E83.42 Hypomagnesemia; E03.9 Hypothyroidism, unspecified; E11.42 Type 2 diabetes mellitus with diabetic polyneuropathy; I27.20 Pulmonary hypertension, unspecified; G47.30 Sleep apnea, unspecified; D25.9 Leiomyoma of uterus, unspecified; J44.9 Chronic obstructive pulmonary disease, unspecified; N20.0 Calculus of kidney; D64.9 Anemia, unspecified; E66.9 Obesity, unspecified; F17.210 Nicotine dependence, cigarettes, uncomplicated; M54.5 Low back pain; F41.8 Other specified anxiety disorders; K76.1 Chronic passive congestion of liver; Z95.5 Presence of coronary angioplasty implant and graft; Z95.820 Peripheral vascular angioplasty status with implants and grafts; Z95.1 Presence of aortocoronary bypass graft; Z95.810 Presence of automatic (implantable) cardiac defibrillator; Z96.641 Presence of right artificial hip joint; Z68.37 Body mass index [BMI] 37.0-37.9, adult; Z91.14 Patient's other noncompliance with medication regimen; Z99.81 Dependence on supplemental oxygen
CPT/HCPCS: 36415; 71045-TC-FY; 80048; 80053; 82550; 82553; 82962; 83735; 83880; 84100; 84484; 85025; 85027; 85610; 85730; 93005; 93010; 99282-25; J1644

== ENCOUNTER 2018-12-09 14:20 | Inpatient (IN) | payer OTHER, BC | END 2018-12-16 19:58 | LOC: J4W 12-10 04:31 → JER 14:20 → JERBED 19:43 ==

== ENCOUNTER 2018-12-23 20:25 | Emergency (ER) | payer OTHER, BC ==
[2018-12-23 21:33] VITALS: BMI 40.3
--- NOTE | 2018-12-23 21:35 | PDOC ---
History of Present Illness <Balwinder De Los Santos - Last Filed: 12/24/18 02:25> <Genet Fink - Last Filed: 12/27/18 15:56> - General Chief Complaint: Congestive Heart Failure Stated Complaint: CHF Time Seen by Provider: 12/23/18 21:23 Past History <Balwinder De Los Santos - Last Filed: 12/24/18 02:25> - Past Medical History Anemia: No Asthma: Yes Cancer: No Cardiac Disorders: Yes (AICD,PA 2014, stents, CABG) CVA: No COPD: No CHF: Yes Dementia: No Diabetes: Yes GI Disorders: Yes (PEG tube) Disorders: No HTN: Yes Hypercholesterolemia: Yes Kidney Stones: Yes Liver Disease: Yes Psychiatric Problems: Yes (depression.) Seizures: No Thyroid Disease: Yes (Hypo) - Surgical History Abdominal Surgery: Yes Appendectomy: No Cardiac Surgery: Yes (bypass,stent x2, CABG 2003, ICD/Pacer 7/15) Cholecystectomy: Yes (04/2016) Lung Surgery: (cabg 2003) Neurologic Surgery: No Orthopedic Surgery: Yes (Right THR) - Immunization History Immunization Up to Date: Yes - Suicide/Smoking/Psychosocial Hx Smoking Status: No Smoking History: Former smoker Have you smoked in the past 12 months: No Number of Cigarettes Smoked Daily: 2 If you are a former smoker, when did you quit?: 3 months ago Information on smoking cessation initiated: No 'Breaking Loose' booklet given: 10/17/18 Hx Alcohol Use: No Drug/Substance Use Hx: No Substance Use Type: None Hx Substance Use Treatment: No <Genet Fink - Last Filed: 12/27/18 15:56> - Past Medical History Allergies/Adverse Reactions: Allergies Allergy/AdvReac Type Severity Reaction Status Date / Time aspirin Allergy Mild Rash Verified 12/09/18 14:43 banana Allergy Hives Verified 12/09/18 14:43 tomato Allergy Verified 12/09/18 14:43 Home Medications: Ambulatory Orders Clopidogrel Bisulfate [Plavix -] 75 mg PO DAILY #30 tablet 08/02/17 Levothyroxine [Synthroid -] 75 mcg PO DAILY@0700 30 Days #30 tablet 08/02/17 Furosemide [Lasix] 80 mg PO DAILY #30 tablet 10/22/18 Metoprolol Succinate [Toprol XL -] 25 mg PO TID 12/09/18 Spironolactone 25 mg PO DAILY 12/09/18 Sacubitril/Valsartan [Entresto 49 mg-51 mg Tablet] 1 tab PO BID #0 tablet *Physical Exam - Vital Signs Last Vital Signs Temp Pulse Resp BP Pulse Ox 97.1 F L 61 25 H 119/65 97 12/23/18 20:30 12/23/18 20:30 12/23/18 20:30 12/23/18 20:30 12/24/18 02:16 <Balwinder De Los Santos - Last Filed: 12/24/18 02:25> - Vital Signs Last Vital Signs Temp Pulse Resp BP Pulse Ox 97.1 F L 61 25 H 119/65 97 12/23/18 20:30 12/23/18 20:30 12/23/18 20:30 12/23/18 20:30 12/23/18 20:30 <Genet Fink - Last Filed: 12/27/18 15:56> Medical Decision Making - Medical Decision Making 12/23/18 21:35 63 yo F PMH of hypothyroid, HTN, HFrEF, A. Fib, COPD(home 5L), DM presented to ED from [facility] for evaluation of worsening congestive heart failure and concern over worsening upper and lower limb edema. The patient denies chest pain but does admit to some shortness of breath. She denies nausea or diaphoresis. She does note worsening edema on the arms and legs. ROS GENERAL/CONSTITUTIONAL: No fever or chills. No weakness. HEAD, EYES, EARS, NOSE AND THROAT: No change in vision. No ear pain or discharge. No sore throat. CARDIOVASCULAR: No chest pain or shortness of breath RESPIRATORY: No cough, wheezing, or hemoptysis. GASTROINTESTINAL: No nausea, vomiting, diarrhea or constipation. GENITOURINARY: No dysuria, frequency, or change in urination. MUSCULOSKELETAL: No joint or muscle swelling or pain. No neck or back pain. NEUROLOGIC: No headache, vertigo, loss of consciousness, or change in strength/ sensation. PE GENERAL: Awake, alert, and fully oriented, in no acute distress HEAD: No signs of trauma, normocephalic, atraumatic EYES: EOMI, sclera anicteric, conjunctiva clear ENT: oropharynx clear without exudates. Moist mucosa NECK: Normal ROM, supple LUNGS: No distress, speaks full sentences, clear to auscultation anteriorly HEART: Regular rate and rhythm, distant heart sounds, normal S1 and S2, no murmurs, rubs or gallops, peripheral pulses normal and equal bilaterally. ABDOMEN: Soft, edema on the lower abdomen, normoactive bowel sounds. No guarding, no rebound. No masses EXTREMITIES : Normal inspection, Normal range of motion, 3+ pitting edema in upper and lower extremities. No clubbing or cyanosis. NEUROLOGICAL: Cranial nerves II through XII grossly intact. Normal speech, normal gait, no focal sensorimotor deficits MDM 63 yo F PMH of hypothyroid, HTN, HFrEF, A. Fib, COPD(home 5L), DM presented to ED from cardiac rehab after evaluation by cardiology Dr. Cardenas and concern with worsening upper and lower limb edema. DDX including but not limited to: acs vs chf vs copd r/o electrolyte derangement W/U: - cbc, cmp, bnp, trop, ekg ,cxr ED Course: Patient signed out to resident Dr. Magali Fink, PGY2 Emergency Medicine <Genet Fink - Last Filed: 12/27/18 15:56> *DC/Admit/Observation/Transfer <Balwinder De Los Santos - Last Filed: 12/24/18 02:25> <Genet Fink - Last Filed: 12/27/18 15:56> Diagnosis at time of Disposition: CHF exacerbation - Discharge Dispostion Disposition: AGAINST MEDICAL ADVICE Condition at time of disposition: Guarded - Patient Instructions Additional Instructions: Pt. consented to be discharged AMA
--- NOTE | 2018-12-23 22:33 | PDOC ---
Documentation entered by Jose Engel SCRIBE, acting as scribe for Sandra Earl MD. Sandra Earl MD: This documentation has been prepared by the Toro hough Elijah, SCRIBE, under my direction and personally reviewed by me in its entirety. I confirm that the documentation accurately reflects all work, treatment, procedures, and medical decision making performed by me. Attending Attestation - Resident Resident Name: Genet Fink - ED Attending Attestation I have performed the following: I have examined & evaluated the patient, The case was reviewed & discussed with the resident, I agree w/resident's findings & plan - HPI HPI: 12/23/18 21:56 The patient is a 63 year old female, with a significant PMH of CHF, HTN, HLD, CAD (s/p CABG), and STEMI, who presents to the ED for worsening bilateral upper and lower extremity edema. Patient was recently discharged for a similar complaint. Patient is currently on 5 L of oxygen at home daily. Allergies: Aspirin, banana, tomato Surgical history: CABG PCP: Dr. Ferrer Cardio: Dr. Cyr - Physicial Exam PE: 12/23/18 22:17 GENERAL: Awake, alert, and fully oriented, in no acute distress HEAD: No signs of trauma EYES: PERRLA, EOMI, sclera anicteric, conjunctiva clear ENT: Auricles normal inspection, hearing grossly normal, nares patent, oropharynx clear without exudates. Moist mucosa NECK: Normal ROM, supple, no lymphadenopathy, JVD, or masses LUNGS: Breath sounds equal, clear to auscultation bilaterally. No wheezes, and no crackles HEART: Regular rate and rhythm, normal S1 and S2, no murmurs, rubs or gallops ABDOMEN: Soft, nontender, normoactive bowel sounds. No guarding, no rebound. No masses EXTREMITIES: +Bilateral Pitting Edema. Normal range of motion. No clubbing or cyanosis. No cords, erythema, or tenderness NEUROLOGICAL: Cranial nerves II through XII grossly intact. Normal speech SKIN: Warm, Dry, normal turgor, no rashes or lesions noted. - Medical Decision Making 12/23/18 22:22 obese 63 yo female sent because her gluer machine operator recommended it -she has long history for chf,morbid obesity, HTN ,CAD,nstemi,stents x 2,asthma who was admitted to our hospital 12/09-12/16 for chf and sent to the [facility] for rehab 12/23/18 22:28 12/23/18 22:33 pt is on 5 liter oxygen NC at baseline at the [facility] 12/24/18 00:[address] Hubbard but he said he was not the one who recommended her be sent to ER 12/24/18 02:07 pt is refusing to have her blood drawn and will sign out AMA and go back to the [facility]
--- NOTE | 2018-12-24 00:21 | PDOC ---
*Physical Exam - Vital Signs Last Vital Signs Temp Pulse Resp BP Pulse Ox 97.1 F L 61 25 H 119/65 97 12/23/18 20:30 12/23/18 20:30 12/23/18 20:30 12/23/18 20:30 12/23/18 20:30 Medical Decision Making - Medical Decision Making 12/24/18 00:02 6 63 y/o F with htn,chf ,copd,diabetes coming from [facility] for worsening chf edema in upper and lower limbs. To Do's we need to do ultrasound guided IV's (needs to get long catheter IV's ) check on EKG Follow up on labs portable CXR If her labs are similiar to discharge values then it would be reasonable to discharge her per Dr. Cardenas 12/24/18 02:26 Several attempts where made to get blood for labs from Ms. Prado including ultrasound as well as use of smaller needles (24 gauge). After these attempts, arterial stick was attempted and the patient refused. The benefits have clearly been explained to her and she no longer wants to be stuck. She however consented to a chest x-ray. She has consented to leave AMA. The risks have been explained to her that she might experience worsening shortness of breath. and worsening CHF. Pt acknowledges these risks and wants to be discharged. *DC/Admit/Observation/Transfer Diagnosis at time of Disposition: CHF exacerbation Qualifiers: Heart failure type: unspecified Qualified Code(s): I50.9 - Heart failure, unspecified - Discharge Dispostion Condition at time of disposition: Guarded Decision to Admit order: No - Referrals - Patient Instructions Additional Instructions: Pt. consented to be discharged AMA - Post Discharge Activity
[2018-12-24 04:41] VITALS: BP 110/50; PULSE 60; TEMP 97.6
--- NOTE | 2018-12-24 15:21 | EKG ---
Test Reason : Blood Pressure : / mmHG Vent. Rate : 063 BPM Atrial Rate : 031 BPM P-R Int : 000 ms QRS Dur : 086 ms QT Int : 380 ms P-R-T Axes : 000 140 215 degrees QTc Int : 388 ms SUSPECT ARM LEAD REVERSAL, INTERPRETATION ASSUMES NO REVERSAL MARKED SINUS BRADYCARDIA LOW VOLTAGE QRS ANTEROLATERAL INFARCT (CITED ON OR BEFORE 22-SEP-2018) ABNORMAL ECG WHEN COMPARED WITH ECG OF 09-DEC-2018 14:25, JUNCTIONAL RHYTHM HAS REPLACED SINUS RHYTHM QRS DURATION HAS DECREASED QUESTIONABLE CHANGE IN INITIAL FORCES OF LATERAL LEADS Confirmed by MD DARIO, AYAN ([id number]) on 12/24/2018 3:20:39 PM Referred By: Confirmed By:AYAN BISHOP MD
== END 2018-12-24 04:42 | disposition left against medical advice (07) ==
LOC: JER 20:25
DX: I50.9 Heart failure, unspecified (principal); I25.10 Atherosclerotic heart disease of native coronary artery without angina pectoris; I11.0 Hypertensive heart disease with heart failure; Z95.1 Presence of aortocoronary bypass graft; Z95.5 Presence of coronary angioplasty implant and graft; I25.2 Old myocardial infarction; J45.909 Unspecified asthma, uncomplicated; E78.5 Hyperlipidemia, unspecified; E03.9 Hypothyroidism, unspecified; K76.9 Liver disease, unspecified; Z95.810 Presence of automatic (implantable) cardiac defibrillator; Z93.1 Gastrostomy status; Z96.641 Presence of right artificial hip joint; Z87.442 Personal history of urinary calculi
CPT/HCPCS: 71045-TC-FY; 93005; 93010; 99284-25

== ENCOUNTER 2019-04-19 11:19 | Inpatient (IN) | payer OTHER, BC ==
[2019-04-19] MEDS ORDERED: SODIUM CHLORIDE 1,000 ML IV STA (12:06)
--- NOTE | 2019-04-19 12:11 | PDOC ---
Documentation entered by Dianne Fox SCRIBE, acting as scribe for Venita Javier MD. Venita Javier MD: This documentation has been prepared by the Dominique hough Brenda, SCRIBE, under my direction and personally reviewed by me in its entirety. I confirm that the documentation accurately reflects all work, treatment, procedures, and medical decision making performed by me. History of Present Illness - General Chief Complaint: Pain Stated Complaint: ABDOMINAL PAIN Time Seen by Provider: 04/19/19 12:06 History Source: Patient Exam Limitations: No Limitations - History of Present Illness Initial Comments: 04/19/19 12:10 63 yo F PMH of CAD s/p CABG and PCI, HTN, HFrEF s/p ICD, A. Fib, COPD(home 5L), DM, hypothyroidism presented to ED from home for worsening abdomen distention and diffuse abdominal pain x 3 days. Patient reports that she has been feeling whole body aching for a while, but it became worse over the past 3 days, along with a sharp diffuse abdominal pain, that became distended. Patient also endorses weakness and mild pain/swelling in both lower extremities Allergies: Aspirin, tomato, banana Past Medical History: CAD s/p CABG/PCI, hypothyroid, HTN, HFrEF, A. Fib, COPD( home 5L), DM Social history: Lives at home. No tobacco, ETOH or drug use. Surgical history: bypass, stent x2, CABG 2003, ICD/Pacer 15, Cholecystectomy Meds: as documented in EMR PMD: Dagli 04/19/19 14:13 04/19/19 14:13 04/19/19 14:43 Past History - Past Medical History Allergies/Adverse Reactions: Allergies Allergy/AdvReac Type Severity Reaction Status Date / Time aspirin Allergy Mild Rash Verified 04/19/19 11:59 banana Allergy Hives Verified 04/19/19 11:59 tomato Allergy Verified 04/19/19 11:59 Home Medications: Ambulatory Orders Clopidogrel Bisulfate [Plavix -] 75 mg PO DAILY #30 tablet 08/02/17 Levothyroxine [Synthroid -] 75 mcg PO DAILY@0700 30 Days #30 tablet 08/02/17 Furosemide [Lasix] 80 mg PO DAILY #30 tablet 10/22/18 Metoprolol Succinate [Toprol XL -] 25 mg PO TID 12/09/18 Spironolactone 25 mg PO DAILY 12/09/18 Sacubitril/Valsartan [Entresto 49 mg-51 mg Tablet] 1 tab PO BID #0 tablet Anemia: No Asthma: Yes Cancer: No Cardiac Disorders: Yes (AICD,OK 2014, stents, CABG) CVA: No COPD: No CHF: Yes Dementia: No Diabetes: Yes GI Disorders: Yes (PEG tube) Disorders: No HTN: Yes Hypercholesterolemia: Yes Kidney Stones: Yes Liver Disease: Yes Psychiatric Problems: Yes (depression.) Seizures: No Thyroid Disease: Yes (Hypo) - Surgical History Abdominal Surgery: Yes Appendectomy: No Cardiac Surgery: Yes (bypass,stent x2, CABG 2003, ICD/Pacer 12/02) Cholecystectomy: Yes (04/2016) Lung Surgery: (cabg 2003) Neurologic Surgery: No Orthopedic Surgery: Yes (Right THR) - Immunization History Immunization Up to Date: Yes - Psycho Social/Smoking Cessation Hx Smoking Status: No Smoking History: Unknown if ever smoked Have you smoked in the past 12 months: No Number of Cigarettes Smoked Daily: 2 If you are a former smoker, when did you quit?: 3 months ago Information on smoking cessation initiated: No 'Breaking Loose' booklet given: 10/17/18 Hx Alcohol Use: No Drug/Substance Use Hx: No Substance Use Type: None Hx Substance Use Treatment: No Review of Systems - Review of Systems Able to Perform ROS?: Yes Comments:: 04/19/19 12:57 Constitutional: (+) Body aches. no fevers or chills. HEENT: no headache or dizziness. No congestion. No visual/hearing disturbances. CVS: no cp or syncope. Resp: no sob. No cough. Gastrointestinal:(+) Diffuse abdominal pain. No nausea or vomiting. no diarrhea or constipation Genitourinary: no urinary sx, hematuria. MUSCULOSKELETAL: (+) Bilateral lower extremity edema and pain. No neck or back pain. SKIN: no redness or skin changes, no discharge, no rash. No wounds. Hematologic: no easy bruising/bleeding. NEUROLOGIC: No headache, dizziness, LOC or altered mental status. No weakness, numbness or tingling. Psych: no anxiety or depression Allergic/Immunologic: no allergies All other systems reviewed and negative, or as documented in HPI. 04/19/19 14:43 *Physical Exam - Vital Signs Last Vital Signs Temp Pulse Resp BP Pulse Ox 97.4 F L 114 H 16 114/84 100 04/19/19 11:25 04/19/19 11:25 04/19/19 11:25 04/19/19 11:25 04/19/19 11:25 - Physical Exam 04/19/19 12:52 General: (+)Anasarca. Well appearing, awake and alert, NAD. HEENT: NCAT, PERRL, EOMI, clear conjunctiva, anicteric, moist mucous membranes , clear oropharynx, no oral lesions.. Neck: neck supple, FROM Resp: (+) On nasal cannula, CTAB, normal and even respirations, no respiratory distress CVS:(+)Tachycardic. no murmurs, 2+ peripheral pulses throughout. Abdomen: (+) Distended. (+) Pitting edema on abdomen, anasarca. (+) Diffuse abdominal pain on palpation. no rebound or guarding. No CVAT. Back: nontender, normal inspection and ROM MSK: PAYTON x4. No clubbing or cyanosis. Extremities: (+) Bilateral petal and pretibial edema. Neuro: alert, oriented appropriately; no focal neurologic deficits Skin: warm and well perfused, cap refill <2 sec, normal color 04/19/19 14:43 Heart Score/ECG Review #1 ECG reviewed & interpreted by me at: 11:55 Compared to previous ECG there are: Changes noted 04/19/19 12:10 EKG atrial fibrillation +tachycardic at 142 bpm, borderline interval abnormalities, borderline QRS at 96 ms, ST and T wave segments and morphology normal. Nonspecific T wave abnormalities partial LBBB, low voltage similar to prior. ED Treatment Course - LABORATORY CBC & Chemistry Diagram: 04/19/19 12:30 04/19/19 12:30 - RADIOLOGY Radiograph Interpretation: 04/19/19 13:10 Chest x-ray with enlarged heart, pulmonary vascular congestion centrally blunting at the left costophrenic angle. Pacemaker in place Medical Decision Making - Medical Decision Making 04/19/19 14:09 Vital Signs Temp Pulse Resp BP Pulse Ox 97.4 F L 114 H 16 114/84 100 04/19/19 11:25 04/19/19 11:25 04/19/19 11:25 04/19/19 11:25 04/19/19 11:25 Vital signs initially notable for tachycardia which is likely related to pain and will recheck after appropriate analgesia. She is normotensive, saturations appropriate 100% on her baseline 5 L nasal cannula afebrile no systemic features , nontoxic-appearing, her respiratory and abdominal symptoms are most likely related to a CHF exacerbation Prior echocardiogram in 2018 with severely dilated left ventricle and severely reduced LV systolic function with severe global hypokinesis and dilated chambers , moderate pulmonic valve regurgitation Differential diagnosis includes CHF, COPD, ACS, arrhythmia, anemia, electrolyte abnormalities, ascites, obstruction, pancreatitis, intra-abdominal infection/ inflammation/ischemia Laboratory results significant for elevated troponin 0.12 as well as BNP 6552, which is in the similar range of her prior elevated BNP's and nonspecific and unreliable given her CHF history. Also positive troponins in the past 2 days elevated again and will need serial trending of troponin/EKG this is most likely demand ischemia Given the most likely etiology of her symptoms is related to CHF, chest x-ray with pulmonary vascular congestion/pulmonary edema, given IV Lasix 80 mg IV as she usually takes 80 mg p.o., diuresis, analgesia CT a/p to eval for intra abdominal pathology/obstruction, Cr/CKD noted so holding on IV contrast with risk of nephropathy with GFR<35 +ascites CT with significant anasarca and ascites much increased compared to previous baseline with cardiomegaly and small left-sided pleural effusion, liver enlargement. Bilateral renal cysts and calcifications within the uterus consistent with her fibroids. repeat VS improving, tachy down. cards cs with Dr Cage/[facility] group, prior cardiologists. agree with plan, diuresis, Abdomen sono, will be available for consult. admit to medical service, hospitalist for CHF exacerbation, telemetry, serial trop/ekg. s/o to Dr Kern, with hospitalist service. 04/19/19 14:56 04/19/19 15:12 04/19/19 15:54 Discharge - Discharge Information Problems reviewed: Yes Clinical Impression/Diagnosis: Ascites CHF (congestive heart failure) Qualifiers: Heart failure type: unspecified Heart failure chronicity: acute on chronic Qualified Code(s): I50.9 - Heart failure, unspecified Condition: Fair - Admission Yes - Follow up/Referral - Patient Discharge Instructions - Post Discharge Activity
[2019-04-19 13:04] LABS: BASO % 0.5 % (0-2.0); HEMATOCRIT 38.4 % (32.4-45.2); HEMOGLOBIN 12.4 GM/dL (10.7-15.3); LYMPH % 17.9 % (8-40); MCH 28.7 pg (25.7-33.7); MCHC 32.3 g/dl (32.0-36.0); MEAN CELL VOLUME 88.9 fl (80-96); MEAN PLT VOLUME 8.3 fl (7.5-11.1); MONO % 17.5 % (3.8-10.2); NEUT % 64.1 % (42.8-82.8); PLATELET COUNT 308 K/MM3 (134-434); RBC 4.32 M/mm3 (3.60-5.2); RDW 17.6 % (11.6-15.6); WHITE BLOOD COUNT 5.7 K/mm3 (4.0-10.0)
[2019-04-19] MEDS ORDERED: FUROSEMIDE 40 MG/4 ML INJECTABLE VIAL IVPUSH ONE (13:10)
[2019-04-19] MEDS ORDERED: morphine CARPU-JECT 4 MG/1 ML DISP.SYRIN IVPUSH ONE (13:10)
[2019-04-19] MEDS ORDERED: FUROSEMIDE 40 MG/4 ML INJECTABLE VIAL ONE (13:16)
[2019-04-19] MEDS ORDERED: morphine SULFATE 4 MG/ML VIAL ONE (13:16)
[2019-04-19 13:28] LABS: ALBUMIN 3.2 g/dl (3.4-5.0); BILIRUBIN,TOTAL 1.1 mg/dL (0.2-1); BLOOD UREA NITROGEN 56.5 mg/dL (7-18); CALCIUM 9.3 mg/dL (8.5-10.1); CREATININE 2.2 mg/dL (0.55-1.3); MAGNESIUM 2.2 mg/dL (1.8-2.4); N-TERMINAL BNP 6552.5 pg/ml (5-125); POTASSIUM 4.5 mmol/L (3.5-5.1); TOT PROT 6.7 g/dl (6.4-8.2)
--- NOTE | 2019-04-19 15:36 | CON.CARD ---
Consult Consult Specialty:: Cardiology for Dr. Cage Referred by:: Emergency Med Dr. Javier Reason for Consultation:: Anasarca, severe systolic CHF - History of Present Illness Chief Complaint: Abd distension History of Present Illness: The patient is a 63 year old female, with a significant PMH of eevere systolic HFrEF s/p ICD, A. Fib, HTN, HLD, CAD s/p CABG and PCI, s/p NSTEMI, HTN, DM, COPD (home 5L), hypothyroidism, who presents to the ED for evaluation of worsening abdomen distention and diffuse abdominal pain x 3 days. Patient reports that she has been feeling whole body aching for a while, but it became worse over the past 3 days, along with a sharp diffuse abdominal pain, that became distended. Patient also endorses weakness and bilateral lower extremity edema, dyspnea, orthopnea. Patient previously admitted for the same complaint. She denies near or true syncope or palpitations, diet, medication indiscretion or NSAID use. Abd/pelvic CT and abd US shows significant ascites. Allergies: Aspirin, tomato, banana Past Medical History: CAD s/p CABG/PCI, hypothyroid, HTN, HFrEF, A. Fib, COPD( home 5L), DM Social history: Lives at home. No tobacco, ETOH or drug use. Surgical history: bypass, stent x2, CABG 2003, ICD/Pacer 12/02, Cholecystectomy Meds: as documented in EMR PMD: Carissa Cardio: Dr. Cage - History Source History Provided By: Patient Limitations to Obtaining History: No Limitations - Past Medical History [employer]: Yes: Peripheral Neuropathy Cardio/Vascular: Yes: CAD (CABG 2003, stents x2, now with defibrillator), CHF ( biventricular failure, very poor LV function), HTN, Hyperlipdemia, NC (NC in 2003), Murmur, Pulmonary Hypertension, Other (profound biventricular failure, AICD device, CABG 2003, subsequent stents) Pulmonary: Yes: Asthma, COPD Gastrointestinal: Yes: Other (Chronic abdominal pain and food intolerances. Had PEG placed 11/03 after suffering vocal cord damage ( EMS intubation). PEG was subsequently removed. ) Hepatobiliary: Yes: Cirrhosis (cardiac cirrhosis), Cholecystitis (s/p lap choly 05/05) Renal/: Yes: Renal Calculi Psych: Yes: Depression Musculoskeletal: Yes: Chronic low back pain, Osteoarthritis Endocrine: Yes: Hypothyroidism - Past Surgical History Past Surgical History: Yes: AICD, CABG, Cholecystectomy (05/05), Colonoscopy, Joint Replacement (right THR), Stent (X2) - Alcohol/Substance Use Hx Alcohol Use: No History of Substance Use: reports: None - Smoking History Smoking history: Unknown if ever smoked Have you smoked in the past 12 months: No Aproximately how many cigarettes per day: 2 If you are a former smoker, when did you quit?: 3 months ago - Social History Usual Living Arrangement: Alone ADL: Independent 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 History of Recent Travel: No Home Medications - Allergies Allergies/Adverse Reactions: Allergies Allergy/AdvReac Type Severity Reaction Status Date / Time aspirin Allergy Mild Rash Verified 04/19/19 11:59 banana Allergy Hives Verified 04/19/19 11:59 tomato Allergy Verified 04/19/19 11:59 - Home Medications Home Medications: Ambulatory Orders Clopidogrel Bisulfate [Plavix -] 75 mg PO DAILY #30 tablet 08/02/17 Levothyroxine [Synthroid -] 75 mcg PO DAILY@0700 30 Days #30 tablet 08/02/17 Furosemide [Lasix] 80 mg PO DAILY #30 tablet 10/22/18 Metoprolol Succinate [Toprol XL -] 25 mg PO TID 12/09/18 Spironolactone 25 mg PO DAILY 12/09/18 Sacubitril/Valsartan [Entresto 49 mg-51 mg Tablet] 1 tab PO BID #0 tablet Review of Systems - Review of Systems Cardiovascular: reports: Edema Respiratory: reports: SOB, SOB on Exertion Gastrointestinal: reports: Abdominal Pain, Other (Distension) Vital Signs: Vital Signs Temperature 97.4 F L 04/19/19 11:25 Pulse Rate 114 H 04/19/19 11:25 Respiratory Rate 16 04/19/19 11:25 Blood Pressure 114/84 04/19/19 11:25 O2 Sat by Pulse Oximetry (%) 100 04/19/19 11:25 Constitutional: Yes: No Distress, Calm Neck: Yes: Supple Respiratory: Yes: Regular, Diminished, On Nasal O2 Gastrointestinal: Yes: Distention, Hypoactive Bowel Sounds Cardiovascular: Yes: Tachycardia, Pulse Irregular JVD: No Carotid Bruit: No Heart Sounds: Yes: S1, S2 Murmur: Yes: Systolic Murmur, Grade 2 Edema: Yes Edema: LLE: 2+, RLE: 2+ - Other Data Labs, Other Data: CBC, BMP 04/19/19 12:30 04/19/19 12:30 Troponin, BNP 04/19/19 12:30 Troponin I 0.12 H B-Natriuretic Peptide 6552.5 H Troponin, BNP 04/19/19 12:30 Troponin I 0.12 H B-Natriuretic Peptide 6552.5 H Afib @ 142 Echo: Report Reviewed Prior Cardiac Procedures: CABG, PTCA Ejection Fraction %: LVEF < 40 % Imaging - Results Chest X-ray: Report Reviewed (Slightly improved congestion) Ultrasound: Report Reviewed (Significant ascites) Problem List - Problems (1) Rapid atrial fibrillation Code(s): I48.91 - UNSPECIFIED ATRIAL FIBRILLATION Assessment/Plan 09/25/2018 Severely dilated with severely decreased LVEF, severe MR, TR, mod STERLING , pacer RV Problems (1) Hx of CABG Assessment/Plan: f/u results of most recent coronary angiogram, statin per primary cards team, change Plavix to DOAC if CAD stable Code(s): Z95.1 - PRESENCE OF AORTOCORONARY BYPASS GRAFT (2) AICD (automatic cardioverter/defibrillator) present Assessment/Plan: check when ICD interrogation was last done as outpatient, and repeat if not done within the past 3 months (this may be done as outpatient). Code(s): Z95.810 - PRESENCE OF AUTOMATIC (IMPLANTABLE) CARDIAC DEFIBRILLATOR (3) Acute on chronic systolic and diastolic heart failure, NYHA class 3 Assessment/Plan: Elevated BNP (chronic); now 6552 No JVD; no acute pathology on CXR. Plan: IV diuresis with monitor diuretic response, renal fxn and electrolyes Decrease Entresto 24/26 mg bid; f/u BUN/Cr, electrolytes, Hb. Continue metoprolol ER 75 mg qd, spironolactone 25 qd Keep K+ 4-4.5; Mg 2-2.4 Ms. Rea has been admitted several times already this year for heart failure; she has been scheduled in the past for evaluation by heart failure group as an outpatient, but has yet to attend. Will reschedule as outpatient (and if pt's condition deteriorates this admission, will attempt to arrange for transfer). Code(s): I50.43 - ACUTE ON CHRONIC COMBINED SYSTOLIC AND DIASTOLIC HRT FAIL (4) Anasarca Code(s): R60.1 - GENERALIZED EDEMA Consider diagnostic/therapeutic paracentesis, heparin gtt periprocedure, change Plavix to DOAC if CAD stable (5) Obesity Assessment/Plan: dietary education would be of benefit. Code(s): E66.9 - OBESITY, UNSPECIFIED (6) Cigarette nicotine dependence Code(s): F17.210 - NICOTINE DEPENDENCE, CIGARETTES, UNCOMPLICATED (7) Peripheral neuropathy Code(s): G62.9 - POLYNEUROPATHY, UNSPECIFIED Qualifiers: Peripheral neuropathy type: polyneuropathy, unspecified Qualified Code(s): G62.9 - Polyneuropathy, unspecified (8) Sleep apnea Assessment/Plan: CPAP. Code(s): G47.30 - SLEEP APNEA, UNSPECIFIED (9) Sphincter of Oddi dysfunction Code(s): K83.4 - SPASM OF SPHINCTER OF ODDI (10) Status post THR (total hip replacement) Code(s): Z96.649 - PRESENCE OF UNSPECIFIED ARTIFICIAL HIP JOINT (11) Anemia Code(s): D64.9 - ANEMIA, UNSPECIFIED (12) Acute on CKD N17.9 due to hemodynamic alterations (13) Hypothroidism E03.9 On Synthroid 75 qd Home meds: Clopidogrel Bisulfate [Plavix -] 75 mg PO DAILY #30 tablet 08/02/17 Levothyroxine [Synthroid -] 75 mcg PO DAILY@0700 30 Days #30 tablet 08/02/17 Furosemide [Lasix] 80 mg PO DAILY #30 tablet 10/22/18 Metoprolol Succinate [Toprol XL -] 25 mg PO TID 12/09/18 Spironolactone 25 mg PO DAILY 12/09/18 Sacubitril/Valsartan [Entresto 49 mg-51 mg Tablet] 1 tab PO BID #0 tablet
[2019-04-19] MEDS ORDERED: HEPARIN NA (PORCINE) 5,000 UNITS/ML 1ML VIAL IVPUSH PRN ×2 (16:16)
[2019-04-19] MEDS ORDERED: METOPROLOL TARTRATE 5 MG/5 ML VIAL IVPUSH ONE (16:17)
[2019-04-19] MEDS ORDERED: METOPROLOL TARTRATE 5 MG/5 ML VIAL ONE (16:25)
[2019-04-19] MEDS ORDERED: HEPARIN INFUSION - 25,000 UNITS/500 ML INFUS.BAG IVPB ONE (16:25)
--- NOTE | 2019-04-19 17:21 | HP ---
CHIEF COMPLAINT: Shortness of breath PCP:dr bolton HISTORY OF PRESENT ILLNESS: The patient is a 63 year old female, with a significant PMH of eevere systolic HFrEF s/p ICD, A. Fib, HTN, HLD, CAD s/p CABG and PCI, s/p NSTEMI, HTN, DM, COPD (home 5L), hypothyroidism, who presents to the ED for evaluation of worsening abdomen distention and diffuse abdominal pain x 3 days. Patient reports that she has been feeling whole body aching for a while, but it became worse over the past 3 days, along with a sharp diffuse abdominal pain, that became distended. Patient also endorses weakness and bilateral lower extremity edema, dyspnea, orthopnea. Patient previously admitted for the same complaint. She denies near or true syncope or palpitations, diet, medication indiscretion or NSAID use. Abd/pelvic CT and abd US shows significant ascites. She has multiple admissions at this hospital with heart failure in the past she has been referred to heart failure center up in [facility] she never got there. In the ER she is already seen by [facility] ER course was notable for: (1) history of multiple admission in the ER for the heart failure (2) history of congestive heart failure (3) Recent Travel: No history of travel PAST MEDICAL HISTORY:The patient is a 63 year old female, with a significant PMH of eevere systolic HFrEF s/p ICD, A. Fib, HTN, HLD, CAD s/p CABG and PCI, s /p NSTEMI, HTN, DM, COPD(home 5L), hypothyroidism, PAST SURGICAL HISTORY: She has history of CABG 2003 2 stents also ICD and pacer November of this year cholecystectomy Social History: She denies any history of alcohol drug and smoking use Smoking: Alcohol: Drugs: Allergies aspirin Allergy (Mild, Verified 04/19/19 11:59) Rash banana Allergy (Verified 04/19/19 11:59) Hives tomato Allergy (Verified 04/19/19 11:59) HOME MEDICATIONS: Home Medications Medication Instructions Recorded Clopidogrel Bisulfate [Plavix -] 75 mg PO DAILY #30 tablet 08/02/17 Levothyroxine [Synthroid -] 75 mcg PO DAILY@0700 30 Days #30 08/02/17 tablet Furosemide [Lasix] 80 mg PO DAILY #30 tablet 10/22/18 Metoprolol Succinate [Toprol XL -] 25 mg PO TID 12/09/18 Spironolactone 25 mg PO DAILY 12/09/18 Sacubitril/Valsartan [Entresto 49 1 tab PO BID #0 tablet 12/16/18 mg-51 mg Tablet] REVIEW OF SYSTEMS CONSTITUTIONAL: Absent: fever, chills, diaphoresis, generalized weakness, malaise, loss of appetite, weight change HEENT: Absent: rhinorrhea, nasal congestion, throat pain, throat swelling, difficulty swallowing, mouth swelling, ear pain, eye pain, visual changes CARDIOVASCULAR: Absent: chest pain, syncope, palpitations, irregular heart rate, lightheadedness , peripheral edema RESPIRATORY: She has shortness of breath on minimal exertion and at rest GASTROINTESTINAL: Absent: abdominal pain, abdominal distension, nausea, vomiting, diarrhea, constipation, melena, hematochezia GENITOURINARY: Absent: dysuria, frequency, urgency, hesitancy, hematuria, flank pain, genital pain MUSCULOSKELETAL: Absent: myalgia, arthralgia, joint swelling, back pain, neck pain SKIN: Absent: rash, itching, pallor HEMATOLOGIC/IMMUNOLOGIC: Absent: easy bleeding, easy bruising, lymphadenopathy, frequent infections ENDOCRINE: Absent: unexplained weight gain, unexplained weight loss, heat intolerance, cold intolerance NEUROLOGIC: Absent: headache, focal weakness or paresthesias, dizziness, unsteady gait, seizure, mental status changes, bladder or bowel incontinence PSYCHIATRIC: Absent: anxiety, depression, suicidal or homicidal ideation, hallucinations. PHYSICAL EXAMINATION Vital Signs - 24 hr 04/19/19 04/19/19 11:25 15:36 Temperature 97.4 F L Pulse Rate 114 H Pulse Rate [ 94 H Left Radial] Respiratory 16 17 Rate Blood Pressure 114/84 Blood Pressure 108/82 [Left Arm] O2 Sat by Pulse 100 95 Oximetry (%) GENERAL: Awake, alert, mild distress. HEAD: Normal with no signs of trauma. EYES: Pupils equal, round and reactive to light, extraocular movements intact, sclera anicteric, conjunctiva clear. No lid lag. EARS, NOSE, THROAT: Ears normal, nares patent, oropharynx clear without exudates. Moist mucous membranes. NECK: Normal range of motion, supple without lymphadenopathy, JVD, or masses. LUNGS: Breath sounds equal, clear to auscultation bilaterally. No wheezes, and no crackles. No accessory muscle use. HEART: Regular rate and rhythm, normal S1 and S2 without murmur, rub or gallop. Tachycardia ABDOMEN: Soft, nontender, not distended, normoactive bowel sounds, no guarding, no rebound, no masses. No hepatomegaly or splenomegaly. MUSCULOSKELETAL: Normal range of motion at all joints. No bony deformities or tenderness. No CVA tenderness. UPPER EXTREMITIES: 1+ edema LOWER EXTREMITIES: 2+ edema both sides NEUROLOGICAL: Cranial nerves II-XII intact. Normal speech. Normal gait. PSYCHIATRIC: Cooperative. Good eye contact. Appropriate mood and affect. SKIN: Warm, dry, normal turgor, no rashes or lesions noted, normal capillary refill. Laboratory Results - last 24 hr 04/19/19 04/19/19 12:30 12:30 WBC 5.7 RBC 4.32 Hgb 12.4 Hct 38.4 D MCV 88.9 MCH 28.7 MCHC 32.3 RDW 17.6 H Plt Count 308 D MPV 8.3 Absolute Neuts (auto) 3.7 Neutrophils % 64.1 Lymphocytes % 17.9 D Monocytes % 17.5 H Eosinophils % 0.0 Basophils % 0.5 Nucleated RBC % 1 H Sodium 136 Potassium 4.5 Chloride 102 Carbon Dioxide 22 Anion Gap 12 BUN 56.5 H Creatinine 2.2 H Est GFR (CKD-EPI)AfAm 26.39 Est GFR (CKD-EPI)NonAf 22.77 Random Glucose 94 Calcium 9.3 Magnesium 2.2 Total Bilirubin 1.1 H AST 26 ALT 18 Alkaline Phosphatase 119 H Creatine Kinase 164 Creatine Kinase Index 2.9 CK-MB (CK-2) 4.8 H Troponin I 0.12 H B-Natriuretic Peptide 6552.5 H Total Protein 6.7 Albumin 3.2 L Lipase 28 L ASSESSMENT/PLAN: The patient is a 63 year old female, with a significant PMH of eevere systolic HFrEF s/p ICD, A. Fib, HTN, HLD, CAD s/p CABG and PCI, s/p NSTEMI, HTN, DM, COPD (home 5L), hypothyroidism, who presents to the ED for evaluation of worsening abdomen distention and diffuse abdominal pain x 3 days. Admit patient to telemetry Cardiac consult Dr. estrada She is started on IV heparin and IV metoprolol for new onset of rapid A. fib by Dr. estrada. And echocardiogram is ordered Heart failure will start diuresis her BNP is 6552 and chest x-ray shows no pneumonia Will monitor her electrolytes tomorrow continue her dose of spironolactone 25 mg and also metoprolol 75 Serial cardiac enzymes repeat labs in the morning High creatinine which is 2.2 we do not have any old record of creatinine in this hospital will repeat creatinine tomorrow if it is high we will call nephrology consult. Visit type - Emergency Visit Emergency Visit: Yes ED Registration Date: 04/19/19 Care time: The patient presented to the Emergency Department on the above date and was hospitalized for further evaluation of their emergent condition. - New Patient This patient is new to me today: Yes Date on this admission: 04/19/19 - Critical Care Critical Care patient: No
[2019-04-19] MEDS: HEPARIN INFUSION - 25,000 UNITS/500 ML INFUS.BAG IVPB SCH (17:42)
[2019-04-19 21:15] LABS: EPI CELLS 2.2 /HPF (0-5/HPF); HYALINE CASTS 32 /lpf (0-8); URINE APPEARANCE CLOUDY; URINE BACTERIA 0 /hpf (NEGATIVE); URINE BILIRUBIN 1+ (NEGATIVE); URINE COLOR DK YELLOW; URINE GLUCOSE (UA) NEGATIVE (NEGATIVE); URINE KETONE NEGATIVE (NEGATIVE); URINE LEUK ESTERASE NEGATIVE (NEGATIVE); URINE NITRITE NEGATIVE (NEGATIVE); URINE PROTEIN 1+ (NEGATIVE); URINE RBC 0 /hpf (0-4); URINE WBC 2 /hpf (0-5)
[2019-04-19] MEDS: SACUBITRIL/VALSARTAN 24 MG-26 MG TABLET PO SCH (22:48)
[2019-04-20] MEDS ORDERED: FUROSEMIDE 40 MG/4 ML INJECTABLE VIAL ONE (04:36)
[2019-04-20] MEDS ORDERED: LEVOTHYROXINE NA 25 MCG TABLET (FP) ONE (04:40)
[2019-04-20] MEDS: FUROSEMIDE 40 MG/4 ML INJECTABLE VIAL IVPUSH SCH ×2 (07:00→14:39)
[2019-04-20] MEDS: LEVOTHYROXINE NA 75 MCG TABLET (FP) PO SCH (07:00)
[2019-04-20 07:09] LABS: BLOOD UREA NITROGEN 63.1 mg/dL (7-18); CALCIUM 8.8 mg/dL (8.5-10.1); CREATININE 2.4 mg/dL (0.55-1.3); POTASSIUM 4.3 mmol/L (3.5-5.1)
[2019-04-20] MEDS ORDERED: SPIRONOLACTONE 25 MG TABLET (FP) PO SCH (10:00)
--- NOTE | 2019-04-20 10:04 | PN ---
Progress Note (short form) - Note Progress Note: Subjective: no fever or chills. BNo CP , no SOB. has back and neck pain. poor historian , but denies any h/o A fib . Objective: Vital Signs: Last Vital Signs Temp Pulse Resp BP Pulse Ox 97.4 F L 66 20 89/42 L 100 04/19/19 11:25 04/20/19 07:06 04/20/19 07:06 04/20/19 07:06 04/20/19 07:06 Laboratory Results - last 24 hr 04/19/19 04/19/19 04/19/19 12:30 12:30 20:40 WBC 5.7 RBC 4.32 Hgb 12.4 Hct 38.4 D MCV 88.9 MCH 28.7 MCHC 32.3 RDW 17.6 H Plt Count 308 D MPV 8.3 Absolute Neuts (auto) 3.7 Neutrophils % 64.1 Lymphocytes % 17.9 D Monocytes % 17.5 H Eosinophils % 0.0 Basophils % 0.5 Nucleated RBC % 1 H PTT (Actin FS) Sodium 136 Potassium 4.5 Chloride 102 Carbon Dioxide 22 Anion Gap 12 BUN 56.5 H Creatinine 2.2 H Est GFR (CKD-EPI)AfAm 26.39 Est GFR (CKD-EPI)NonAf 22.77 Random Glucose 94 Calcium 9.3 Magnesium 2.2 Total Bilirubin 1.1 H AST 26 ALT 18 Alkaline Phosphatase 119 H Creatine Kinase 164 Creatine Kinase Index 2.9 CK-MB (CK-2) 4.8 H Troponin I 0.12 H B-Natriuretic Peptide 6552.5 H Total Protein 6.7 Albumin 3.2 L Lipase 28 L Urine Color Dk yellow Urine Appearance Cloudy Urine pH 5.0 Ur Specific [place] 1.017 Urine Protein 1+ H Urine Glucose (UA) Negative Urine Ketones Negative Urine Blood Negative Urine Nitrite Negative Urine Bilirubin 1+ H Urine Urobilinogen 2.0 H Ur Leukocyte Esterase Negative Urine WBC (Auto) 2 Urine RBC (Auto) 0 Urine Casts (Auto) 32 U Pathogenic Cast Auto Positive U Epithel Cells (Auto) 2.2 Urine Bacteria (Auto) 0 04/19/19 04/20/19 04/20/19 20:40 00:30 02:20 WBC RBC Hgb Hct MCV MCH MCHC RDW Plt Count MPV Absolute Neuts (auto) Neutrophils % Lymphocytes % Monocytes % Eosinophils % Basophils % Nucleated RBC % PTT (Actin FS) Cancelled > 400.0 H Sodium Potassium Chloride Carbon Dioxide Anion Gap BUN Creatinine Est GFR (CKD-EPI)AfAm Est GFR (CKD-EPI)NonAf Random Glucose Calcium Magnesium Total Bilirubin AST ALT Alkaline Phosphatase Creatine Kinase 151 Creatine Kinase Index 2.9 CK-MB (CK-2) 4.4 H Troponin I 0.11 H B-Natriuretic Peptide Total Protein Albumin Lipase 37 L Urine Color Urine Appearance Urine pH Ur Specific [place] Urine Protein Urine Glucose (UA) Urine Ketones Urine Blood Urine Nitrite Urine Bilirubin Urine Urobilinogen Ur Leukocyte Esterase Urine WBC (Auto) Urine RBC (Auto) Urine Casts (Auto) U Pathogenic Cast Auto U Epithel Cells (Auto) Urine Bacteria (Auto) 04/20/19 04/20/19 05:50 05:50 WBC RBC Hgb Hct MCV MCH MCHC RDW Plt Count MPV Absolute Neuts (auto) Neutrophils % Lymphocytes % Monocytes % Eosinophils % Basophils % Nucleated RBC % PTT (Actin FS) 63.4 H Sodium 134 L Potassium 4.3 Chloride 103 Carbon Dioxide 20 L Anion Gap 11 BUN 63.1 H Creatinine 2.4 H Est GFR (CKD-EPI)AfAm 23.76 Est GFR (CKD-EPI)NonAf 20.50 Random Glucose 73 L Calcium 8.8 Magnesium Total Bilirubin AST ALT Alkaline Phosphatase Creatine Kinase 125 Creatine Kinase Index CK-MB (CK-2) Troponin I 0.12 H B-Natriuretic Peptide Total Protein Albumin Lipase Urine Color Urine Appearance Urine pH Ur Specific [place] Urine Protein Urine Glucose (UA) Urine Ketones Urine Blood Urine Nitrite Urine Bilirubin Urine Urobilinogen Ur Leukocyte Esterase Urine WBC (Auto) Urine RBC (Auto) Urine Casts (Auto) U Pathogenic Cast Auto U Epithel Cells (Auto) Urine Bacteria (Auto) Physical Exam: NAD , flat affect. Avoids eye contact CV: RRR, no MRG . + JVD Lungs: decreased breath sounds half way down . no wheezes or crackles . Ext: Pitting edema on legs and thighs /. DP 2+ b/l . RUE pitting edema . No erythema Abd ;abd wall pitting edema. NT, ND, NL BS ASSESSMENT AND PLAN: 61 year old female, with a significant past medical history of hypertension, hypercholesterolemia, CAD, HI(X2, s/p defibrillator/pacemaker and CABG), CHF, DM II, kidney stones, peripheral neuropathy, hypothyroidism, and non compliance who presneted with SOB and was found to have A fib with RVR and Acute CHF 1- New onset A fib: old records and all the available EKGs reviewed .No h/o A fib before. Now HR is better controlled - cont BB - cont heparin gtt for today. Tomorrow , will check with her pharmacy if Eliquis is covered and may start her on it 2- Acute on chronic systolic CHF: - cont lasix BID - cont decreased dose of Entresto - cont spironolactone - cont BB . - SBP in 80s. but patient is asymptomatic. hold off inotrops right now. if condition worsens , will consider after d/w card 3- LIANNA on CKD: due to cardiorenal syndrome - cont diuresis . 4- Elevated trop : chronically elevated . EKG reviewed. R axis , A fib, withtachycardia. no ST changes DVT PX: on heparin gtt Visit type - Emergency Visit Emergency Visit: Yes ED Registration Date: 04/19/19 Care time: The patient presented to the Emergency Department on the above date and was hospitalized for further evaluation of their emergent condition. - New Patient This patient is new to me today: Yes Date on this admission: 04/20/19 - Critical Care Critical Care patient: No
[2019-04-20] MEDS ORDERED: PT OWN MED DRAWER 7, Y5N ONE ×2 (10:09→14:42)
[2019-04-20] MEDS: CLOPIDOGREL BISULFATE 75 MG TABLET (FP) PO SCH (10:35)
[2019-04-20] MEDS: SPIRONOLACTONE 25 MG TABLET (FP) PO SCH (10:36)
[2019-04-20] MEDS ORDERED: FLU VACCINE QUAD 60 MCG/0.5 ML (MDV 19-20) IM ONE (12:10)
[2019-04-20] MEDS: SACUBITRIL/VALSARTAN 24 MG-26 MG TABLET PO SCH ×2 (12:33→21:39)
[2019-04-20] MEDS: HEPARIN INFUSION - 25,000 UNITS/500 ML INFUS.BAG IVPB SCH (16:30)
--- NOTE | 2019-04-20 18:21 | PN ---
Progress Note, Physician Chief Complaint: Cardiology for Dr. Cage History of Present Illness: Abdomen distention and pain, bilateral lower extremity edema, dyspnea, and orthopnea improving with diuresis and rate-control. Abd/pelvic CT and abd US shows significant ascites. Allergies: Aspirin, tomato, banana Past Medical History: CAD s/p CABG/PCI, hypothyroid, HTN, HFrEF, A. Fib, COPD( home 5L), DM Social history: Lives at home. No tobacco, ETOH or drug use. Surgical history: bypass, stent x2, CABG 2003, ICD/Pacer 12/02, Cholecystectomy Meds: as documented in EMR PMD: [place] Cardio: Dr. Cage - Current Medication List Current Medications: Active Medications Clopidogrel Bisulfate (Plavix -) 75 mg PO DAILY [facility] Last Admin: 04/20/19 10:35 Dose: 75 mg Furosemide (Lasix Injection -) 40 mg IVPUSH BID@0600,1400 [facility] Last Admin: 04/20/19 14:39 Dose: 40 mg Heparin Sodium (Porcine) (Heparin -) 1,000 unit IVPUSH PRN PRN PRN Reason: Heparin Heparin Sodium (Porcine) (Heparin -) 5,000 unit IVPUSH PRN PRN PRN Reason: Heparin Heparin Sodium/Dextrose (Heparin Infusion -) 25,000 units in 500 mls @ 20 mls/ hr IVPB TITR [facility]; Protocol Last Admin: 04/20/19 16:30 Dose: 700 units/hr, 14 mls/hr Levothyroxine Sodium (Synthroid -) 75 mcg PO DAILY@0700 [facility] Last Admin: 04/20/19 07:00 Dose: 75 mcg Metoprolol Succinate (Toprol Xl -) 50 mg PO DAILY [facility] Last Admin: 04/20/19 12:33 Dose: Not Given Sacubitril/Valsartan (Entresto 24 Mg-26 Mg Tablet) 1 tab PO BID [facility] Last Admin: 04/20/19 12:33 Dose: Not Given Spironolactone (Aldactone -) 25 mg PO DAILY [facility] Last Admin: 04/20/19 10:36 Dose: 25 mg - Objective Vital Signs: Vital Signs Temperature 96.9 F L 04/20/19 17:52 Pulse Rate 66 04/20/19 17:52 Respiratory Rate 20 04/20/19 17:52 Blood Pressure 85/47 L 04/20/19 17:52 O2 Sat by Pulse Oximetry (%) 100 04/20/19 09:00 Constitutional: Yes: No Distress, Calm Neck: Yes: Supple Cardiovascular: Yes: Pulse Irregular Respiratory: Yes: Regular, Diminished, On Nasal O2 Gastrointestinal: Yes: Normal Bowel Sounds, Distention (improved) Edema: Yes Edema: LLE: 1+, RLE: 1+ Labs: CBC, BMP 04/19/19 12:30 04/20/19 05:50 - ....Imaging EKG: Report Reviewed (Tele: Rate-controlled afib) Problem List - Problems (1) Rapid atrial fibrillation Code(s): I48.91 - UNSPECIFIED ATRIAL FIBRILLATION (2) Subendocardial ischemia Code(s): I24.8 - OTHER FORMS OF ACUTE ISCHEMIC HEART DISEASE (3) Ascites Code(s): R18.8 - OTHER ASCITES Qualifiers: Ascites type: other type Qualified Code(s): R18.8 - Other ascites Assessment/Plan 09/25/2018 Severely dilated with severely decreased LVEF, severe MR, TR, mod STERLING , pacer RV Problems (1) Hx of CABG Assessment/Plan: f/u results of most recent coronary angiogram, statin per primary cards team, change Plavix to DOAC if CAD stable Code(s): Z95.1 - PRESENCE OF AORTOCORONARY BYPASS GRAFT (2) AICD (automatic cardioverter/defibrillator) present Assessment/Plan: check when ICD interrogation was last done as outpatient, and repeat if not done within the past 3 months (this may be done as outpatient). Code(s): Z95.810 - PRESENCE OF AUTOMATIC (IMPLANTABLE) CARDIAC DEFIBRILLATOR (3) Acute on chronic systolic and diastolic heart failure, NYHA class 3 Assessment/Plan: Elevated BNP (chronic); now 6552 No JVD; no acute pathology on CXR. Plan: IV diuresis with monitor diuretic response, renal fxn and electrolyes Decrease Entresto 24/26 mg bid; f/u BUN/Cr, electrolytes, Hb. Continue metoprolol ER 75 mg qd, spironolactone 25 qd Keep K+ 4-4.5; Mg 2-2.4 Ms. Rea has been admitted several times already this year for heart failure; she has been scheduled in the past for evaluation by heart failure group as an outpatient, but has yet to attend. Will reschedule as outpatient (and if pt's condition deteriorates this admission, will attempt to arrange for transfer). Code(s): I50.43 - ACUTE ON CHRONIC COMBINED SYSTOLIC AND DIASTOLIC HRT FAIL (4) Anasarca Code(s): R60.1 - GENERALIZED EDEMA Consider diagnostic/therapeutic paracentesis, heparin gtt periprocedure, change Plavix to DOAC if CAD stable (5) Obesity Assessment/Plan: dietary education would be of benefit. Code(s): E66.9 - OBESITY, UNSPECIFIED (6) Cigarette nicotine dependence Code(s): F17.210 - NICOTINE DEPENDENCE, CIGARETTES, UNCOMPLICATED (7) Peripheral neuropathy Code(s): G62.9 - POLYNEUROPATHY, UNSPECIFIED Qualifiers: Peripheral neuropathy type: polyneuropathy, unspecified Qualified Code(s): G62.9 - Polyneuropathy, unspecified (8) Sleep apnea Assessment/Plan: CPAP. Code(s): G47.30 - SLEEP APNEA, UNSPECIFIED (9) Sphincter of Oddi dysfunction Code(s): K83.4 - SPASM OF SPHINCTER OF ODDI (10) Status post THR (total hip replacement) Code(s): Z96.649 - PRESENCE OF UNSPECIFIED ARTIFICIAL HIP JOINT (11) Anemia Code(s): D64.9 - ANEMIA, UNSPECIFIED (12) Acute on CKD N17.9 due to hemodynamic alterations (13) Hypothroidism E03.9 On Synthroid 75 qd
[2019-04-21] MEDS ORDERED: ACETAMINOPHEN 325 MG TABLET (FP) PO ONE (03:20)
[2019-04-21] MEDS ORDERED: DOCUSATE SODIUM 100 MG CAPSULE (FP) PO PRN (03:21)
[2019-04-21] MEDS ORDERED: SENNOSIDES 8.6MG TABLET (FP) PO PRN (03:23)
[2019-04-21] MEDS: LEVOTHYROXINE NA 75 MCG TABLET (FP) PO SCH (06:01)
[2019-04-21] MEDS: FUROSEMIDE 40 MG/4 ML INJECTABLE VIAL IVPUSH SCH ×2 (06:01→14:26)
--- NOTE | 2019-04-21 07:58 | PN ---
Progress Note, Physician History of Present Illness: The patient is a 63 year old female, with a significant PMH of eevere systolic HFrEF s/p ICD, A. Fib, HTN, HLD, CAD s/p CABG and PCI, s/p NSTEMI, HTN, DM, COPD (home 5L), hypothyroidism, who presents to the ED for evaluation of worsening abdomen distention and diffuse abdominal pain x 3 days. Patient reports that she has been feeling whole body aching for a while, but it became worse over the past 3 days, along with a sharp diffuse abdominal pain, that became distended. Patient also endorses weakness and bilateral lower extremity edema, dyspnea, orthopnea. Patient previously admitted for the same complaint. She denies near or true syncope or palpitations, diet, medication indiscretion or NSAID use. Abd/pelvic CT and abd US shows significant ascites. - Current Medication List Current Medications: Active Medications Clopidogrel Bisulfate (Plavix -) 75 mg PO DAILY [facility] Last Admin: 04/20/19 10:35 Dose: 75 mg Docusate Sodium (Colace -) 100 mg PO DAILY PRN PRN Reason: CONSTIPATION Furosemide (Lasix Injection -) 40 mg IVPUSH BID@0600,1400 [facility] Last Admin: 04/21/19 06:01 Dose: 40 mg Heparin Sodium (Porcine) (Heparin -) 1,000 unit IVPUSH PRN PRN PRN Reason: Heparin Heparin Sodium (Porcine) (Heparin -) 5,000 unit IVPUSH PRN PRN PRN Reason: Heparin Heparin Sodium/Dextrose (Heparin Infusion -) 25,000 units in 500 mls @ 20 mls/ hr IVPB TITR [facility]; Protocol Last Admin: 04/20/19 16:30 Dose: 700 units/hr, 14 mls/hr Levothyroxine Sodium (Synthroid -) 75 mcg PO DAILY@0700 [facility] Last Admin: 04/21/19 06:01 Dose: 75 mcg Metoprolol Succinate (Toprol Xl -) 75 mg PO DAILY [facility] Sacubitril/Valsartan (Entresto 24 Mg-26 Mg Tablet) 1 tab PO BID [facility] Last Admin: 04/20/19 21:39 Dose: 1 tab Senna (Senna -) 1 tab PO HS PRN PRN Reason: CONSTIPATION Spironolactone (Aldactone -) 25 mg PO DAILY [facility] Last Admin: 04/20/19 10:36 Dose: 25 mg - Objective Vital Signs: Vital Signs Temperature 97.8 F 04/21/19 05:00 Pulse Rate 90 04/21/19 05:00 Respiratory Rate 20 04/21/19 05:00 Blood Pressure 100/68 04/21/19 05:00 O2 Sat by Pulse Oximetry (%) 98 04/20/19 20:43 Eyes: Yes: WNL, Conjunctiva Clear, EOM Intact HENT: Yes: WNL, Atraumatic, Normocephalic Neck: Yes: WNL, Supple, Trachea Midline Cardiovascular: Yes: Pulse Irregular Respiratory: Yes: WNL, Regular, CTA Bilaterally Gastrointestinal: Yes: WNL, Normal Bowel Sounds Genitourinary: Yes: WNL Musculoskeletal: Yes: WNL Extremities: Yes: WNL Edema: Yes Integumentary: Yes: WNL Neurological: Yes: WNL, Alert, Oriented ...Motor Strength: WNL Psychiatric: Yes: WNL Labs: CBC, BMP 04/19/19 12:30 04/20/19 05:50 Assessment/Plan Problem List - Problems (1) Rapid atrial fibrillation Code(s): I48.91 - UNSPECIFIED ATRIAL FIBRILLATION (2) Subendocardial ischemia Code(s): I24.8 - OTHER FORMS OF ACUTE ISCHEMIC HEART DISEASE (3) Ascites Code(s): R18.8 - OTHER ASCITES Qualifiers: Ascites type: other type Qualified Code(s): R18.8 - Other ascites Assessment/Plan 09/25/2018 Severely dilated with severely decreased LVEF, severe MR, TR, mod STERLING , pacer RV Problems (1) Hx of CABG Assessment/Plan: f/u results of most recent coronary angiogram, statin per primary cards team, change Plavix to DOAC if CAD stable Code(s): Z95.1 - PRESENCE OF AORTOCORONARY BYPASS GRAFT (2) AICD (automatic cardioverter/defibrillator) present Assessment/Plan: check when ICD interrogation was last done as outpatient, and repeat if not done within the past 3 months (this may be done as outpatient). Code(s): Z95.810 - PRESENCE OF AUTOMATIC (IMPLANTABLE) CARDIAC DEFIBRILLATOR (3) Acute on chronic systolic and diastolic heart failure, NYHA class 3 Assessment/Plan: Elevated BNP (chronic); now 6552 No JVD; no acute pathology on CXR. Plan: IV diuresis with monitor diuretic response, renal fxn and electrolyes Decrease Entresto 24/26 mg bid; f/u BUN/Cr, electrolytes, Hb. Continue metoprolol ER 75 mg qd, spironolactone 25 qd Keep K+ 4-4.5; Mg 2-2.4 Ms. Rea has been admitted several times already this year for heart failure; she has been scheduled in the past for evaluation by heart failure group as an outpatient, but has yet to attend. Will reschedule as outpatient (and if pt's condition deteriorates this admission, will attempt to arrange for transfer). Code(s): I50.43 - ACUTE ON CHRONIC COMBINED SYSTOLIC AND DIASTOLIC HRT FAIL (4) Anasarca Code(s): R60.1 - GENERALIZED EDEMA Consider diagnostic/therapeutic paracentesis, heparin gtt periprocedure, change Plavix to DOAC if CAD stable (5) Obesity Assessment/Plan: dietary education would be of benefit. Code(s): E66.9 - OBESITY, UNSPECIFIED (6) Cigarette nicotine dependence Code(s): F17.210 - NICOTINE DEPENDENCE, CIGARETTES, UNCOMPLICATED (7) Peripheral neuropathy Code(s): G62.9 - POLYNEUROPATHY, UNSPECIFIED Qualifiers: Peripheral neuropathy type: polyneuropathy, unspecified Qualified Code(s): G62.9 - Polyneuropathy, unspecified (8) Sleep apnea Assessment/Plan: CPAP. Code(s): G47.30 - SLEEP APNEA, UNSPECIFIED (9) Sphincter of Oddi dysfunction Code(s): K83.4 - SPASM OF SPHINCTER OF ODDI (10) Status post THR (total hip replacement) Code(s): Z96.649 - PRESENCE OF UNSPECIFIED ARTIFICIAL HIP JOINT (11) Anemia Code(s): D64.9 - ANEMIA, UNSPECIFIED (12) Acute on CKD N17.9 due to hemodynamic alterations (13) Hypothroidism E03.9 On Synthroid 75 qd
[2019-04-21] MEDS: CLOPIDOGREL BISULFATE 75 MG TABLET (FP) PO SCH (10:13)
[2019-04-21] MEDS: SACUBITRIL/VALSARTAN 24 MG-26 MG TABLET PO SCH ×2 (10:13→22:00)
[2019-04-21] MEDS: SPIRONOLACTONE 25 MG TABLET (FP) PO SCH (10:13)
[2019-04-21] MEDS: metoPROLOL SUCCINATE 25 MG TAB.SR.24H (FP) PO SCH (10:14)
--- NOTE | 2019-04-21 10:37 | EKG ---
Test Reason : Blood Pressure : / mmHG Vent. Rate : 084 BPM Atrial Rate : 076 BPM P-R Int : 000 ms QRS Dur : 116 ms QT Int : 392 ms P-R-T Axes : 000 140 218 degrees QTc Int : 463 ms ATRIAL FIBRILLATION INCOMPLETE RIGHT BUNDLE BRANCH BLOCK POSSIBLE RIGHT VENTRICULAR HYPERTROPHY POSSIBLE ANTEROLATERAL INFARCT (CITED ON OR BEFORE 22-SEP-2018) ABNORMAL ECG WHEN COMPARED WITH ECG OF 19-APR-2019 11:58, VENT. RATE HAS DECREASED BY 58 BPM Confirmed by MICH ARVIZU MD ([id number]) on 04/21/2019 10:36:59 AM Referred By: Confirmed By:MICH ARVIZU MD
[2019-04-21] MEDS ORDERED: APIXABAN 5 MG TABLET PO SCH (13:45)
--- NOTE | 2019-04-21 14:02 | PN ---
Physical Exam: SUBJECTIVE: Patient seen and examined 63 y/o F, pmh of Severe systolic HFrEF s/p ICD, A. Fib, HTN, HLD, CAD s/p CABG and PCI, s/p NSTEMI, HTN, DM, COPD(home 5L), hypothyroidism, presents with worsening abdominal pain, and distention of 3 day duration. Currently, pt is still c/o of abdominal pain and LE pain. She appears to have mild difficulty breathing and tolerating pain. She moved her bowels and has urinated. Denies f/c /n/v/d/chest pain. OBJECTIVE: Vital Signs Period Temp Pulse Resp BP Sys/Santoro Pulse Ox Last 24 Hr 96.9 F-97.9 F 64-90 18-20 73-103/46-79 98-98 GENERAL: The patient is awake, alert, and fully oriented. Mild distress due to pain. EYES: PERRL, extraocular movements intact, sclera anicteric ENT: oropharynx clear without exudates, moist mucous membranes. NECK: full range of motion, supple. LUNGS: Breath sounds equal, clear to auscultation bilaterally, no wheezes, mild crackles, HEART: Regular rate and irregular rhythm, S1, S2 without murmur, rub or gallop. ABDOMEN: Soft but tender, distended, normoactive bowel sounds, no guarding, no rebound EXTREMITIES: UE: RUE 2+ edema, non-pitting LE: 2+ pulses, warm, Edema 2+ noted nonpitting b/l NEUROLOGICAL: Cranial nerves II through XII grossly intact. PSYCH: Normal mood, normal affect. SKIN: Warm, dry, normal turgor, Laboratory Results - last 24 hr CBC,CMP WBC 5.7 K/mm3 (4.0-10.0) 04/19/19 12:30 RBC 4.32 M/mm3 (3.60-5.2) 04/19/19 12:30 Hgb 12.4 GM/dL (10.7-15.3) 04/19/19 12:30 Hct 38.4 % (32.4-45.2) D 04/19/19 12:30 MCV 88.9 fl (80-96) 04/19/19 12:30 MCH 28.7 pg (25.7-33.7) 04/19/19 12:30 MCHC 32.3 g/dl (32.0-36.0) 04/19/19 12:30 RDW 17.6 % (11.6-15.6) H 04/19/19 12:30 Plt Count 308 K/MM3 (134-434) D 04/19/19 12:30 MPV 8.3 fl (7.5-11.1) 04/19/19 12:30 Absolute Neuts (auto) 3.7 K/mm3 (1.5-8.0) 04/19/19 12:30 Neutrophils % 64.1 % (42.8-82.8) 04/19/19 12:30 Lymphocytes % 17.9 % (8-40) D 04/19/19 12:30 Monocytes % 17.5 % (3.8-10.2) H 04/19/19 12:30 Eosinophils % 0.0 % (0-4.5) 04/19/19 12:30 Basophils % 0.5 % (0-2.0) 04/19/19 12:30 Nucleated RBC % 1 % (0-0) H 04/19/19 12:30 Sodium 134 mmol/L (136-145) L 04/20/19 05:50 Potassium 4.3 mmol/L (3.5-5.1) 04/20/19 05:50 Chloride 103 mmol/L (98-107) 04/20/19 05:50 Carbon Dioxide 20 mmol/L (21-32) L 04/20/19 05:50 Anion Gap 11 MMOL/L (8-16) 04/20/19 05:50 BUN 63.1 mg/dL (7-18) H 04/20/19 05:50 Creatinine 2.4 mg/dL (0.55-1.3) H 04/20/19 05:50 Est GFR (CKD-EPI)AfAm 23.76 04/20/19 05:50 Est GFR (CKD-EPI)NonAf 20.50 04/20/19 05:50 POC Glucometer 80 UNITS (80-120) 04/21/19 05:55 Random Glucose 73 mg/dL (74-106) L 04/20/19 05:50 Calcium 8.8 mg/dL (8.5-10.1) 04/20/19 05:50 Magnesium 2.2 mg/dL (1.8-2.4) 04/19/19 12:30 Total Bilirubin 1.1 mg/dL (0.2-1) H 04/19/19 12:30 AST 26 U/L (15-37) 04/19/19 12:30 ALT 18 U/L (13-61) 04/19/19 12:30 Alkaline Phosphatase 119 U/L (45-117) H 04/19/19 12:30 Creatine Kinase 125 U/L (26-192) 04/20/19 05:50 Creatine Kinase Index 2.9 % (0.0-5.0) 04/19/19 20:40 CK-MB (CK-2) 4.4 ng/mL (0.5-3.6) H 04/19/19 20:40 Troponin I 0.12 ng/ml (0.00-0.05) H 04/20/19 05:50 B-Natriuretic Peptide 6552.5 pg/ml (5-125) H 04/19/19 12:30 Total Protein 6.7 g/dl (6.4-8.2) 04/19/19 12:30 Albumin 3.2 g/dl (3.4-5.0) L 04/19/19 12:30 Lipase 37 U/L (73-393) L 04/19/19 20:40 Active Medications Current Medications Apixaban (Eliquis -) 5 mg PO BID [facility] Clopidogrel Bisulfate (Plavix -) 75 mg PO DAILY [facility] Last Admin: 04/21/19 10:13 Dose: 75 mg Docusate Sodium (Colace -) 100 mg PO DAILY PRN PRN Reason: CONSTIPATION Furosemide (Lasix Injection -) 40 mg IVPUSH BID@0600,1400 [facility] Last Admin: 04/21/19 06:01 Dose: 40 mg Levothyroxine Sodium (Synthroid -) 75 mcg PO DAILY@0700 [facility] Last Admin: 04/21/19 06:01 Dose: 75 mcg Metoprolol Succinate (Toprol Xl -) 75 mg PO DAILY [facility] Last Admin: 04/21/19 10:14 Dose: Not Given Sacubitril/Valsartan (Entresto 24 Mg-26 Mg Tablet) 1 tab PO BID [facility] Last Admin: 04/21/19 10:13 Dose: Not Given Senna (Senna -) 1 tab PO HS PRN PRN Reason: CONSTIPATION Spironolactone (Aldactone -) 25 mg PO DAILY [facility] Last Admin: 04/21/19 10:13 Dose: 25 mg Home Medications Medication Instructions Recorded Clopidogrel Bisulfate [Plavix -] 75 mg PO DAILY #30 tablet 08/02/17 Levothyroxine [Synthroid -] 75 mcg PO DAILY@0700 30 Days #30 08/02/17 tablet Furosemide [Lasix] 80 mg PO DAILY #30 tablet 10/22/18 Metoprolol Succinate [Toprol XL -] 25 mg PO TID 12/09/18 Spironolactone 25 mg PO DAILY 12/09/18 Sacubitril/Valsartan [Entresto 49 1 tab PO BID #0 tablet 12/16/18 mg-51 mg Tablet] Microbiology 04/19/19 20:40 Urine - Urine Clean Catch Urine Culture - Final NO GROWTH OBTAINED ASSESSMENT/PLAN: 63 y/o F, pmh of Severe systolic HFrEF s/p ICD, A. Fib, HTN, HLD, CAD s/p CABG and PCI, s/p NSTEMI, HTN, DM, COPD(home 5L), hypothyroidism, presents with worsening abdominal pain, and distention of 3 day duration is admitted for acute CHF exacerbation and A-fib w/ RVR #Acute on chronic systolic CHF cont lasix BID, will increase tomorrow Entresto decreased to 24-26mg cont spironolactone cont Toprol 75 Hold Inotropes for now- if systolic pressures drop, consider restarting after discussing with cardio #A-fib no hx of previous A-fib cont Toprol 75 Eliquis 5 started Will get ICD interrogated #RUE edema US RUE ordered- will f/u #LIANNA on CKD likely due to cardiorenal syndrome cont lasix 40 bd #Hypothyroidism cont synthroid 75mcg #CAD s/p CABG cont Plavix 75 #DVT ppx eliquis FEN sodium controlled diet monitor lytes Dispo: f/u U/S, monitor systolic function, cont lasix Visit type - Emergency Visit Emergency Visit: Yes ED Registration Date: 04/19/19 Care time: The patient presented to the Emergency Department on the above date and was hospitalized for further evaluation of their emergent condition. - New Patient This patient is new to me today: Yes Date on this admission: 04/22/19 - Critical Care Critical Care patient: No - Discharge Referral Referred to [facility] Med P.C.: No ATTENDING PHYSICIAN STATEMENT I saw and evaluated the patient. I reviewed the resident's note and discussed the case with the resident. I agree with the resident's findings and plan as documented. SUBJECTIVE: OBJECTIVE: ASSESSMENT AND PLAN:
--- NOTE | 2019-04-21 17:21 | PN ---
Teaching Attending Note Name of Resident: Juany Herrera ATTENDING PHYSICIAN STATEMENT I saw and evaluated the patient. I reviewed the resident's note and discussed the case with the resident. I agree with the resident's findings and plan as documented. SUBJECTIVE: No fever or chills. No CP . has aches in all her body OBJECTIVE: NAD, flat affect. CV: RRR, no MRG. + JVD even in sitting position Lungs: decreased breath sounds half way down. no wheezes or crackles . Ext: Pitting edema on legs and thighs. DP 2+ b/l. RUE pitting edema. No erythema ASSESSMENT AND PLAN: 61 year old female, with a significant past medical history of hypertension, hypercholesterolemia, CAD, AL(X2, s/p defibrillator/pacemaker and CABG), CHF, DM II, kidney stones, peripheral neuropathy, hypothyroidism, and non compliance who presneted with SOB and was found to have A fib with RVR and Acute CHF 1- New onset A fib: tele reviewed. - cont BB - start eliquis. confirmed with pharmacy insurance coverage 2- Acute on chronic systolic CHF: - cont lasix BID . will probably increase tomorrow - cont decreased dose of Entresto. held today due to hypotension - cont spironolactone - cont BB . - tele reviewed. possible wide complex tachy ( 5-10 beets ) - will get ICD interrogated 3- LIANNA on CKD: due to cardiorenal syndrome - cont diuresis . 4- Elevated trop : no evidence of iscehmia DVT PX: elliquis
[2019-04-21] MEDS ORDERED: SENNOSIDES 8.6MG TABLET (FP) PO SCH (22:00)
[2019-04-21] MEDS ORDERED: APIXABAN 5 MG TABLET PO ONE (23:00)
[2019-04-22] MEDS ORDERED: DEXTROSE 50%-WATER - 25 GM/50 ML VIAL IVPUSH ONE (03:58)
[2019-04-22] MEDS ORDERED: DEXTROSE 50%-WATER 25 GM/50 ML DISP.SYRIN ONE (03:59)
[2019-04-22] MEDS: FUROSEMIDE 40 MG/4 ML INJECTABLE VIAL IVPUSH SCH ×3 (05:24→18:13)
[2019-04-22] MEDS: LEVOTHYROXINE NA 75 MCG TABLET (FP) PO SCH (06:32)
[2019-04-22 10:11] LABS: HEMATOCRIT 37.7 % (32.4-45.2); MCH 28.1 pg (25.7-33.7); MCHC 31.8 g/dl (32.0-36.0); MEAN CELL VOLUME 88.4 fl (80-96); MEAN PLT VOLUME 7.9 fl (7.5-11.1); PLATELET COUNT 269 K/MM3 (134-434); RBC 4.27 M/mm3 (3.60-5.2); RDW 17.6 % (11.6-15.6); WHITE BLOOD COUNT 6.6 K/mm3 (4.0-10.0)
[2019-04-22 10:36] LABS: BLOOD UREA NITROGEN 83.6 mg/dL (7-18); CALCIUM 8.3 mg/dL (8.5-10.1); CREATININE 3.4 mg/dL (0.55-1.3); POTASSIUM 4.2 mmol/L (3.5-5.1)
[2019-04-22] MEDS ORDERED: PT OWN MED DRAWER 7, Y5N ONE ×2 (10:36→20:45)
[2019-04-22] MEDS: SACUBITRIL/VALSARTAN 24 MG-26 MG TABLET PO SCH ×2 (11:46→21:30)
[2019-04-22] MEDS: APIXABAN 5 MG TABLET PO SCH ×2 (11:46→21:31)
[2019-04-22] MEDS: SPIRONOLACTONE 25 MG TABLET (FP) PO SCH (11:46)
[2019-04-22] MEDS: metoPROLOL SUCCINATE 25 MG TAB.SR.24H (FP) PO SCH (11:55)
[2019-04-22] MEDS: CLOPIDOGREL BISULFATE 75 MG TABLET (FP) PO SCH (11:55)
--- NOTE | 2019-04-22 12:49 | EKG ---
Test Reason : Blood Pressure : / mmHG Vent. Rate : 142 BPM Atrial Rate : 174 BPM P-R Int : 000 ms QRS Dur : 096 ms QT Int : 296 ms P-R-T Axes : 000 152 179 degrees QTc Int : 455 ms SUSPECT ARM LEAD REVERSAL, INTERPRETATION ASSUMES NO REVERSAL Possible atrial tachycardia WITH OCCASIONAL PREMATURE VENTRICULAR COMPLEXES ANTEROLATERAL INFARCT (CITED ON OR BEFORE 22-SEP-2018) ABNORMAL ECG WHEN COMPARED WITH ECG OF 23-DEC-2018 23:09, PREMATURE VENTRICULAR COMPLEXES ARE NOW PRESENT VENT. RATE HAS INCREASED BY 79 BPM Confirmed by MD ANIL, JIMENA ([id number]) on 04/22/2019 12:49:21 PM Referred By: Confirmed By:JIMENA MA MD
--- NOTE | 2019-04-22 14:19 | PN ---
Physical Exam: SUBJECTIVE: 63 y/o F, pmh of Severe systolic HFrEF s/p ICD, A. Fib, HTN, HLD, CAD s/p CABG and PCI, s/p NSTEMI, HTN, DM, COPD(home 5L), hypothyroidism, presents with worsening abdominal pain, and distention of 3 day duration. Currently, c/o of abdominal pain and LE pain. No back or chest pain. She appears to have mild difficulty breathing and tolerating pain. She moved her bowels and has urinated. Denies f/c/n/v/d/chest pain. OBJECTIVE: Vital Signs Period Temp Pulse Resp BP Sys/Santoro Pulse Ox Last 24 Hr 97.6 F 74-103 20-20 83-109/38-76 96-98 GENERAL: The patient is awake, alert, and fully oriented. Mild distress due to pain. EYES: PERRL, extraocular movements intact, sclera anicteric ENT: oropharynx clear without exudates, moist mucous membranes. NECK: full range of motion, supple. LUNGS: Breath sounds equal, clear to auscultation bilaterally, no wheezes, mild crackles, HEART: Regular rate and irregular rhythm, S1, S2 without murmur, rub or gallop. ABDOMEN: Soft but tender, distended, normoactive bowel sounds, no guarding, no rebound EXTREMITIES: UE: RUE 2+ edema, non-pitting LE: 2+ pulses, warm, Edema 2+ noted nonpitting b/l NEUROLOGICAL: Cranial nerves II through XII grossly intact. PSYCH: Normal mood, normal affect. SKIN: Warm, dry, normal turgor, Laboratory Results - last 24 hr CBC,CMP WBC 6.6 K/mm3 (4.0-10.0) 04/22/19 10:00 RBC 4.27 M/mm3 (3.60-5.2) 04/22/19 10:00 Hgb 12.0 GM/dL (10.7-15.3) 04/22/19 10:00 Hct 37.7 % (32.4-45.2) 04/22/19 10:00 MCV 88.4 fl (80-96) 04/22/19 10:00 MCH 28.1 pg (25.7-33.7) 04/22/19 10:00 MCHC 31.8 g/dl (32.0-36.0) L 04/22/19 10:00 RDW 17.6 % (11.6-15.6) H 04/22/19 10:00 Plt Count 269 K/MM3 (134-434) 04/22/19 10:00 MPV 7.9 fl (7.5-11.1) 04/22/19 10:00 Absolute Neuts (auto) 3.7 K/mm3 (1.5-8.0) 04/19/19 12:30 Neutrophils % 64.1 % (42.8-82.8) 04/19/19 12:30 Lymphocytes % 17.9 % (8-40) D 04/19/19 12:30 Monocytes % 17.5 % (3.8-10.2) H 04/19/19 12:30 Eosinophils % 0.0 % (0-4.5) 04/19/19 12:30 Basophils % 0.5 % (0-2.0) 04/19/19 12:30 Nucleated RBC % 1 % (0-0) H 04/19/19 12:30 Sodium 134 mmol/L (136-145) L 04/22/19 10:00 Potassium 4.2 mmol/L (3.5-5.1) 04/22/19 10:00 Chloride 97 mmol/L (98-107) L 04/22/19 10:00 Carbon Dioxide 26 mmol/L (21-32) 04/22/19 10:00 Anion Gap 12 MMOL/L (8-16) 04/22/19 10:00 BUN 83.6 mg/dL (7-18) H 04/22/19 10:00 Creatinine 3.4 mg/dL (0.55-1.3) H 04/22/19 10:00 Est GFR (CKD-EPI)AfAm 15.59 04/22/19 10:00 Est GFR (CKD-EPI)NonAf 13.45 04/22/19 10:00 POC Glucometer 93 UNITS (80-120) 04/22/19 13:01 Random Glucose 65 mg/dL (74-106) L 04/22/19 10:00 Calcium 8.3 mg/dL (8.5-10.1) L 04/22/19 10:00 Magnesium 2.2 mg/dL (1.8-2.4) 04/19/19 12:30 Total Bilirubin 1.1 mg/dL (0.2-1) H 04/19/19 12:30 AST 26 U/L (15-37) 04/19/19 12:30 ALT 18 U/L (13-61) 04/19/19 12:30 Alkaline Phosphatase 119 U/L (45-117) H 04/19/19 12:30 Creatine Kinase 125 U/L (26-192) 04/20/19 05:50 Creatine Kinase Index 2.9 % (0.0-5.0) 04/19/19 20:40 CK-MB (CK-2) 4.4 ng/mL (0.5-3.6) H 04/19/19 20:40 Troponin I 0.12 ng/ml (0.00-0.05) H 04/20/19 05:50 B-Natriuretic Peptide 6552.5 pg/ml (5-125) H 04/19/19 12:30 Total Protein 6.7 g/dl (6.4-8.2) 04/19/19 12:30 Albumin 3.2 g/dl (3.4-5.0) L 04/19/19 12:30 Lipase 37 U/L (73-393) L 04/19/19 20:40 Active Medications Current Medications Apixaban (Eliquis -) 5 mg PO BID [facility] Last Admin: 04/22/19 11:46 Dose: 5 mg Clopidogrel Bisulfate (Plavix -) 75 mg PO DAILY [facility] Last Admin: 04/22/19 11:55 Dose: 75 mg Docusate Sodium (Colace -) 100 mg PO DAILY PRN PRN Reason: CONSTIPATION Furosemide (Lasix Injection -) 60 mg IVPUSH BID@0600,1400 [facility] Last Admin: 04/22/19 11:55 Dose: 60 mg Levothyroxine Sodium (Synthroid -) 75 mcg PO DAILY@0700 [facility] Last Admin: 04/22/19 06:32 Dose: Not Given Metoprolol Succinate (Toprol Xl -) 75 mg PO DAILY [facility] Last Admin: 04/22/19 11:55 Dose: 75 mg Sacubitril/Valsartan (Entresto 24 Mg-26 Mg Tablet) 1 tab PO BID [facility] Last Admin: 04/22/19 11:46 Dose: 1 tab Senna (Senna -) 1 tab PO HS PRN PRN Reason: CONSTIPATION Spironolactone (Aldactone -) 25 mg PO DAILY [facility] Last Admin: 04/22/19 11:46 Dose: 25 mg Home Medications Medication Instructions Recorded Clopidogrel Bisulfate [Plavix -] 75 mg PO DAILY #30 tablet 08/02/17 Levothyroxine [Synthroid -] 75 mcg PO DAILY@0700 30 Days #30 08/02/17 tablet Furosemide [Lasix] 80 mg PO DAILY #30 tablet 10/22/18 Metoprolol Succinate [Toprol XL -] 25 mg PO TID 12/09/18 Spironolactone 25 mg PO DAILY 12/09/18 Sacubitril/Valsartan [Entresto 49 1 tab PO BID #0 tablet 12/16/18 mg-51 mg Tablet] Microbiology 04/19/19 20:40 Urine - Urine Clean Catch Urine Culture - Final NO GROWTH OBTAINED ASSESSMENT/PLAN: 63 y/o F, pmh of Severe systolic HFrEF s/p ICD, A. Fib, HTN, HLD, CAD s/p CABG and PCI, s/p NSTEMI, HTN, DM, COPD(home 5L), hypothyroidism, presents with worsening abdominal pain, and distention of 3 day duration is admitted for acute CHF exacerbation and A-fib w/ RVR #Acute on chronic systolic CHF cont lasix 60 BID- monitor for improvement Entresto 24-26mg cont spironolactone 25 Hold Inotropes for now- if systolic pressures drops, consider restarting after discussing with cardio #A-fib no hx of previous A-fib cont Toprol 75 Eliquis 5 Will get ICD interrogated #RUE edema likely 2/2 to fluid overload US RUE ordered- no dvt #LIANNA on CKD likely due to cardiorenal syndrome cont lasix 60 bid #Hypothyroidism cont synthroid 75mcg #CAD s/p CABG cont Plavix 75 #DVT ppx on eliquis FEN sodium controlled diet monitor lytes Dispo: monitor systolic function, if BP drops, consider inotropes, cont lasix 60 Visit type - Emergency Visit Emergency Visit: Yes ED Registration Date: 04/19/19 Care time: The patient presented to the Emergency Department on the above date and was hospitalized for further evaluation of their emergent condition. - New Patient This patient is new to me today: Yes Date on this admission: 04/25/19 - Critical Care Critical Care patient: No - Discharge Referral Referred to [facility] No ATTENDING PHYSICIAN STATEMENT I saw and evaluated the patient. I reviewed the resident's note and discussed the case with the resident. I agree with the resident's findings and plan as documented. SUBJECTIVE: OBJECTIVE: ASSESSMENT AND PLAN:
--- NOTE | 2019-04-22 14:57 | PN ---
Progress Note, Physician History of Present Illness: The patient is a 63 year old female, with a significant PMH of eevere systolic HFrEF s/p ICD, A. Fib, HTN, HLD, CAD s/p CABG and PCI, s/p NSTEMI, HTN, DM, COPD (home 5L), hypothyroidism, who presents to the ED for evaluation of worsening abdomen distention and diffuse abdominal pain x 3 days. Patient reports that she has been feeling whole body aching for a while, but it became worse over the past 3 days, along with a sharp diffuse abdominal pain, that became distended. Patient also endorses weakness and bilateral lower extremity edema, dyspnea, orthopnea. Patient previously admitted for the same complaint. She denies near or true syncope or palpitations, diet, medication indiscretion or NSAID use. Abd/pelvic CT and abd US shows significant ascites. - Current Medication List Current Medications: Active Medications Apixaban (Eliquis -) 5 mg PO BID [facility] Last Admin: 04/22/19 11:46 Dose: 5 mg Clopidogrel Bisulfate (Plavix -) 75 mg PO DAILY [facility] Last Admin: 04/22/19 11:55 Dose: 75 mg Docusate Sodium (Colace -) 100 mg PO DAILY PRN PRN Reason: CONSTIPATION Furosemide (Lasix Injection -) 60 mg IVPUSH BID@0600,1400 [facility] Last Admin: 04/22/19 11:55 Dose: 60 mg Levothyroxine Sodium (Synthroid -) 75 mcg PO DAILY@0700 [facility] Last Admin: 04/22/19 06:32 Dose: Not Given Metoprolol Succinate (Toprol Xl -) 75 mg PO DAILY [facility] Last Admin: 04/22/19 11:55 Dose: 75 mg Sacubitril/Valsartan (Entresto 24 Mg-26 Mg Tablet) 1 tab PO BID [facility] Last Admin: 04/22/19 11:46 Dose: 1 tab Senna (Senna -) 1 tab PO HS PRN PRN Reason: CONSTIPATION Spironolactone (Aldactone -) 25 mg PO DAILY [facility] Last Admin: 04/22/19 11:46 Dose: 25 mg - Objective Vital Signs: Vital Signs Temperature 97.6 F 04/22/19 02:00 Pulse Rate 76 04/22/19 05:21 Respiratory Rate 20 04/22/19 05:21 Blood Pressure 83/38 L 04/22/19 05:21 O2 Sat by Pulse Oximetry (%) 96 04/22/19 08:51 Eyes: Yes: WNL, Conjunctiva Clear, EOM Intact HENT: Yes: WNL, Atraumatic, Normocephalic Neck: Yes: WNL, Supple, Trachea Midline Cardiovascular: Yes: WNL, Regular Rate and Rhythm Respiratory: Yes: WNL, Regular, CTA Bilaterally Gastrointestinal: Yes: WNL, Normal Bowel Sounds Genitourinary: Yes: WNL Musculoskeletal: Yes: WNL Extremities: Yes: WNL Edema: Yes Integumentary: Yes: WNL Neurological: Yes: WNL, Alert, Oriented ...Motor Strength: WNL Psychiatric: Yes: WNL Labs: CBC, BMP 04/22/19 10:00 04/22/19 10:00 Assessment/Plan Problem List - Problems (1) Rapid atrial fibrillation Code(s): I48.91 - UNSPECIFIED ATRIAL FIBRILLATION (2) Subendocardial ischemia Code(s): I24.8 - OTHER FORMS OF ACUTE ISCHEMIC HEART DISEASE (3) Ascites Code(s): R18.8 - OTHER ASCITES Qualifiers: Ascites type: other type Qualified Code(s): R18.8 - Other ascites Assessment/Plan 09/25/2018 Severely dilated with severely decreased LVEF, severe MR, TR, mod STERLING , pacer RV Problems (1) Hx of CABG Assessment/Plan: f/u results of most recent coronary angiogram, statin per primary cards team, change Plavix to DOAC if CAD stable Code(s): Z95.1 - PRESENCE OF AORTOCORONARY BYPASS GRAFT (2) AICD (automatic cardioverter/defibrillator) present Assessment/Plan: check when ICD interrogation was last done as outpatient, and repeat if not done within the past 3 months (this may be done as outpatient). Code(s): Z95.810 - PRESENCE OF AUTOMATIC (IMPLANTABLE) CARDIAC DEFIBRILLATOR (3) Acute on chronic systolic and diastolic heart failure, NYHA class 3 Assessment/Plan: Elevated BNP (chronic); now 6552 No JVD; no acute pathology on CXR. Plan: IV diuresis with monitor diuretic response, renal fxn and electrolyes Decrease Entresto 24/26 mg bid; f/u BUN/Cr, electrolytes, Hb. Continue metoprolol ER 75 mg qd, spironolactone 25 qd Keep K+ 4-4.5; Mg 2-2.4 Ms. Rea has been admitted several times already this year for heart failure; she has been scheduled in the past for evaluation by heart failure group as an outpatient, but has yet to attend. Will reschedule as outpatient (and if pt's condition deteriorates this admission, will attempt to arrange for transfer). Code(s): I50.43 - ACUTE ON CHRONIC COMBINED SYSTOLIC AND DIASTOLIC HRT FAIL (4) Anasarca Code(s): R60.1 - GENERALIZED EDEMA Consider diagnostic/therapeutic paracentesis, heparin gtt periprocedure, change Plavix to DOAC if CAD stable (5) Obesity Assessment/Plan: dietary education would be of benefit. Code(s): E66.9 - OBESITY, UNSPECIFIED (6) Cigarette nicotine dependence Code(s): F17.210 - NICOTINE DEPENDENCE, CIGARETTES, UNCOMPLICATED (7) Peripheral neuropathy Code(s): G62.9 - POLYNEUROPATHY, UNSPECIFIED Qualifiers: Peripheral neuropathy type: polyneuropathy, unspecified Qualified Code(s): G62.9 - Polyneuropathy, unspecified (8) Sleep apnea Assessment/Plan: CPAP. Code(s): G47.30 - SLEEP APNEA, UNSPECIFIED (9) Sphincter of Oddi dysfunction Code(s): K83.4 - SPASM OF SPHINCTER OF ODDI (10) Status post THR (total hip replacement) Code(s): Z96.649 - PRESENCE OF UNSPECIFIED ARTIFICIAL HIP JOINT (11) Anemia Code(s): D64.9 - ANEMIA, UNSPECIFIED (12) Acute on CKD N17.9 due to hemodynamic alterations (13) Hypothroidism E03.9 On Synthroid 75 qd
--- NOTE | 2019-04-22 18:22 | PN ---
Teaching Attending Note Name of Resident: Rusty Earl ATTENDING PHYSICIAN STATEMENT I saw and evaluated the patient. I reviewed the resident's note and discussed the case with the resident. I agree with the resident's findings and plan as documented. SUBJECTIVE: No fever or chills. No MOREAU , has aches in her legs and her Abd . no cp . SOB has improved OBJECTIVE: NAD, flat affect. CV: RRR, no MRG. + JVD Lungs: decreased breath sounds half way down. fine crackles at bases. Ext: Pitting edema on legs and thighs. DP 2+ b/l. RUE pitting edema. No erythema ASSESSMENT AND PLAN: 61 year old female, with a significant past medical history of hypertension, hypercholesterolemia, CAD, CT(X2, s/p defibrillator/pacemaker and CABG), CHF, DM II, kidney stones, peripheral neuropathy, hypothyroidism, and non compliance who presneted with SOB and was found to have A fib with RVR and Acute CHF 1- New onset A fib: - cont BB - Cont eliquis. covered by insurance 2- Acute on chronic systolic CHF: - increase lasix to 60 mg BID - cont decreased dose of Entresto. - cont spironolactone - cont BB . - ICD interrogation pending. order in 3- LIANNA on CKD: due to cardiorenal syndrome - cont diuresis . 4- Elevated trop : no evidence of iscehmia DVT PX: luisis
[2019-04-23] MEDS: FUROSEMIDE 40 MG/4 ML INJECTABLE VIAL IVPUSH SCH ×3 (06:20→17:59)
[2019-04-23] MEDS: LEVOTHYROXINE NA 75 MCG TABLET (FP) PO SCH (06:26)
[2019-04-23 06:32] LABS: HEMATOCRIT 34.5 % (32.4-45.2); HEMOGLOBIN 11.2 GM/dL (10.7-15.3); MCH 28.3 pg (25.7-33.7); MCHC 32.5 g/dl (32.0-36.0); MEAN PLT VOLUME 7.6 fl (7.5-11.1); PLATELET COUNT 252 K/MM3 (134-434); RBC 3.97 M/mm3 (3.60-5.2); RDW 17.6 % (11.6-15.6)
[2019-04-23 06:51] LABS: BLOOD UREA NITROGEN 87.6 mg/dL (7-18); CALCIUM 8.1 mg/dL (8.5-10.1); CREATININE 3.4 mg/dL (0.55-1.3); POTASSIUM 4.8 mmol/L (3.5-5.1)
[2019-04-23] MEDS ORDERED: ACETAMINOPHEN 325 MG TABLET (FP) PO ONE (07:26)
--- NOTE | 2019-04-23 09:11 | PN ---
Teaching Attending Note Name of Resident: Rusty Earl ATTENDING PHYSICIAN STATEMENT I saw and evaluated the patient. I reviewed the resident's note and discussed the case with the resident. I agree with the resident's findings and plan as documented. SUBJECTIVE: Patient has no new complains, no nausea or vomiting. OBJECTIVE: Vital Signs Temperature 97.8 F 04/23/19 06:00 Pulse Rate 94 H 04/23/19 06:00 Respiratory Rate 20 04/23/19 06:00 Blood Pressure 90/52 L 04/23/19 06:00 O2 Sat by Pulse Oximetry (%) 96 04/22/19 21:00 GENERAL: The patient is awake, alert, and oriented, in no acute distress. HEAD: Normal with no signs of trauma. EYES: PERRL, extraocular movements intact, sclera anicteric, conjunctiva clear. . ENT: Ears normal, oropharynx clear without exudates, moist mucous membranes. NECK: Trachea midline, full range of motion, supple. LUNGS: Breath sounds equal, clear to auscultation bilaterally, no wheezes, no crackles, no accessory muscle use. HEART: Regular rate and rhythm, S1, S2 positive, brennen 3/6 , no rub or gallop. ABDOMEN: Soft, NT, nondistended, normoactive bowel sounds, no guarding, no rebound, no hepatosplenomegaly, no masses. EXTREMITIES: 2+ pulses, warm, well-perfused, positive for anasarca generalized NEUROLOGICAL: Cranial nerves II through XII grossly intact. Normal speech, gait not observed. PSYCH: flat affect SKIN: Warm, dry, normal turgor, no rashes or lesions noted CBCD WBC 6.0 K/mm3 (4.0-10.0) 04/23/19 06:10 RBC 3.97 M/mm3 (3.60-5.2) 04/23/19 06:10 Hgb 11.2 GM/dL (10.7-15.3) 04/23/19 06:10 Hct 34.5 % (32.4-45.2) 04/23/19 06:10 MCV 87.0 fl (80-96) 04/23/19 06:10 MCHC 32.5 g/dl (32.0-36.0) 04/23/19 06:10 RDW 17.6 % (11.6-15.6) H 04/23/19 06:10 Plt Count 252 K/MM3 (134-434) 04/23/19 06:10 MPV 7.6 fl (7.5-11.1) 04/23/19 06:10 CMP Sodium 131 mmol/L (136-145) L 04/23/19 06:10 Potassium 4.8 mmol/L (3.5-5.1) 04/23/19 06:10 Chloride 97 mmol/L (98-107) L 04/23/19 06:10 Carbon Dioxide 25 mmol/L (21-32) 04/23/19 06:10 Anion Gap 10 MMOL/L (8-16) 04/23/19 06:10 BUN 87.6 mg/dL (7-18) H 04/23/19 06:10 Creatinine 3.4 mg/dL (0.55-1.3) H 04/23/19 06:10 Random Glucose 83 mg/dL (74-106) 04/23/19 06:10 Calcium 8.1 mg/dL (8.5-10.1) L 04/23/19 06:10 Total Bilirubin 1.1 mg/dL (0.2-1) H 04/19/19 12:30 AST 26 U/L (15-37) 04/19/19 12:30 ALT 18 U/L (13-61) 04/19/19 12:30 Alkaline Phosphatase 119 U/L (45-117) H 04/19/19 12:30 Total Protein 6.7 g/dl (6.4-8.2) 04/19/19 12:30 Albumin 3.2 g/dl (3.4-5.0) L 04/19/19 12:30 CARDIAC ENZYMES Creatine Kinase 125 U/L (26-192) 04/20/19 05:50 Troponin I 0.12 ng/ml (0.00-0.05) H 04/20/19 05:50 Current Medications Generic Name Dose Route Start Last Admin Trade Name Freq PRN Reason Stop Dose Admin Apixaban 5 mg 04/22/19 10:00 04/22/19 21:31 Eliquis - PO 5 mg BID [facility] Administration Clopidogrel Bisulfate 75 mg 04/20/19 10:00 04/22/19 11:55 Plavix - PO 75 mg DAILY [facility] Administration Docusate Sodium 100 mg 04/21/19 03:21 Colace - PO DAILY PRN CONSTIPATION Furosemide 60 mg 04/22/19 10:19 04/23/19 06:20 Lasix Injection - IVPUSH Not Given BID@0600,1400 [facility] Levothyroxine Sodium 75 mcg 04/20/19 07:00 04/23/19 06:26 Synthroid - PO 75 mcg DAILY@0700 [facility] Administration Metoprolol Succinate 75 mg 04/20/19 18:30 04/22/19 11:55 Toprol Xl - PO 75 mg DAILY [facility] Administration Sacubitril/Valsartan 1 tab 04/19/19 22:00 04/22/19 21:30 Entresto 24 Mg-26 Mg Tablet PO Not Given BID [facility] Senna 1 tab 04/21/19 03:23 Senna - PO HS PRN CONSTIPATION Spironolactone 25 mg 04/20/19 10:00 04/22/19 11:46 Aldactone - PO 25 mg DAILY [facility] Administration Home Medications Medication Instructions Recorded Clopidogrel Bisulfate [Plavix -] 75 mg PO DAILY #30 tablet 08/02/17 Levothyroxine [Synthroid -] 75 mcg PO DAILY@0700 30 Days #30 08/02/17 tablet Furosemide [Lasix] 80 mg PO DAILY #30 tablet 10/22/18 Metoprolol Succinate [Toprol XL -] 25 mg PO TID 12/09/18 Spironolactone 25 mg PO DAILY 12/09/18 Sacubitril/Valsartan [Entresto 49 1 tab PO BID #0 tablet 12/16/18 mg-51 mg Tablet] ASSESSMENT AND PLAN: Patient is a 61 yo female, with PMhx of hypertension, hypercholesterolemia, CAD, NM(X2, s/p defibrillator/pacemaker and CABG), CHF, DM II, kidney stones, peripheral neuropathy, hypothyroidism, and non compliance who presented with SOB and was found to have A fib with RVR and Acute exacerbation of diastolic and Systolic CHF # Acute new onset A fib: on BB, continue eliquis. covered by insurance # Acute on chronic diastolic and systolic CHF:on IV lasix to 80 mg BID , will hold Entresto, spironolactone, cont BB . - ICD interrogation pending. possible lasix drip, tyron discuss with nephro # LIANNA on CKD: due to cardiorenal syndrome , continue diuresis, nephro consulted today # Elevated trop : no evidence of ischemia DVT PX: elliquis
[2019-04-23] MEDS: APIXABAN 5 MG TABLET PO SCH ×2 (11:33→21:08)
[2019-04-23] MEDS: CLOPIDOGREL BISULFATE 75 MG TABLET (FP) PO SCH (11:33)
[2019-04-23] MEDS ORDERED: FUROSEMIDE 40 MG TABLET (FP) PO ONE (11:54)
--- NOTE | 2019-04-23 12:15 | PN ---
Teaching Attending Note Name of Resident: Rosas Ibarra (Nephrology) ATTENDING PHYSICIAN STATEMENT I saw and evaluated the patient. I reviewed the resident's note and discussed the case with the resident. I agree with the resident's findings and plan as documented. Renal Pt is a 63 year old female with pmhx of ckd, CHF, htn, HLD, cad, and Dm who presents with shortness of breath. She was found to have elevated creatinine and I was called to evaluate her. She complains of shortness of breath and of generalized edema. She has poor outpt follow up. pmhx ckd chf dm htn hld fam hx htn all asa banana tomato ros edema Current Medications Generic Name Dose Route Start Last Admin Trade Name Freq PRN Reason Stop Dose Admin Apixaban 5 mg 04/22/19 10:00 04/23/19 11:33 Eliquis - PO 5 mg BID [facility] Administration Clopidogrel Bisulfate 75 mg 04/20/19 10:00 04/23/19 11:33 Plavix - PO 75 mg DAILY [facility] Administration Docusate Sodium 100 mg 04/21/19 03:21 Colace - PO DAILY PRN CONSTIPATION Furosemide 60 mg 04/22/19 10:19 04/23/19 12:02 Lasix Injection - IVPUSH 60 mg BID@0600,1400 [facility] Administration Levothyroxine Sodium 75 mcg 04/20/19 07:00 04/23/19 06:26 Synthroid - PO 75 mcg DAILY@0700 [facility] Administration Metoprolol Succinate 75 mg 04/20/19 18:30 04/22/19 11:55 Toprol Xl - PO 75 mg DAILY [facility] Administration Sacubitril/Valsartan 1 tab 04/19/19 22:00 04/22/19 21:30 Entresto 24 Mg-26 Mg Tablet PO Not Given BID [facility] Senna 1 tab 04/21/19 03:23 Senna - PO HS PRN CONSTIPATION Spironolactone 25 mg 04/20/19 10:00 04/22/19 11:46 Aldactone - PO 25 mg DAILY [facility] Administration Last Vital Signs Temp Pulse Resp BP Pulse Ox 97.8 F 94 H 20 90/52 L 96 04/23/19 06:00 04/23/19 06:00 04/23/19 06:00 04/23/19 06:00 04/22/19 21:00 Laboratory Tests 12/15/18 12/16/18 04/19/19 06:25 05:35 12:30 Creatinine 1.5 H 1.4 H 2.2 H 04/20/19 04/22/19 04/23/19 05:50 10:00 06:10 Creatinine 2.4 H 3.4 H 3.4 H Laboratory Tests 06/05/16 10/10/18 05:35 05:30 DANIELLE Screen Positive H c-ANCA <1:20 Proteinase 3 (PR3) <3.5 p-ANCA <1:20 Atypical p-ANCA <1:20 Tiss Transglutamin IgG < 2 Glomerular Base Memb Ab 3 cardio s1s2 pulm rhonchi gi obest ext edema abd wall edema skin neg rash Impression 1. LIANNA 2. CHF 3. volume overload 4. HTN 5. HLD 6. DM 7. CAD 8. COPD 9. active smoker 10. anasarca 11. hypotension 12. hx of positive danielle Plan - resume lasix - can give po 100 mg until we get iv access - repeat cmp in am the check alb - monitor bp - cardio eval - will need rheum eval for pos danielle - check daily weights
--- NOTE | 2019-04-23 12:24 | PN ---
Progress Note, Physician History of Present Illness: The patient is a 63 year old female, with a significant PMH of eevere systolic HFrEF s/p ICD, A. Fib, HTN, HLD, CAD s/p CABG and PCI, s/p NSTEMI, HTN, DM, COPD (home 5L), hypothyroidism, who presents to the ED for evaluation of worsening abdomen distention and diffuse abdominal pain x 3 days. Patient reports that she has been feeling whole body aching for a while, but it became worse over the past 3 days, along with a sharp diffuse abdominal pain, that became distended. Patient also endorses weakness and bilateral lower extremity edema, dyspnea, orthopnea. Patient previously admitted for the same complaint. She denies near or true syncope or palpitations, diet, medication indiscretion or NSAID use. Abd/pelvic CT and abd US shows significant ascites. - Current Medication List Current Medications: Active Medications Apixaban (Eliquis -) 5 mg PO BID [facility] Last Admin: 04/23/19 11:33 Dose: 5 mg Clopidogrel Bisulfate (Plavix -) 75 mg PO DAILY [facility] Last Admin: 04/23/19 11:33 Dose: 75 mg Docusate Sodium (Colace -) 100 mg PO DAILY PRN PRN Reason: CONSTIPATION Furosemide (Lasix Injection -) 60 mg IVPUSH BID@0600,1400 [facility] Last Admin: 04/23/19 12:02 Dose: 60 mg Levothyroxine Sodium (Synthroid -) 75 mcg PO DAILY@0700 [facility] Last Admin: 04/23/19 06:26 Dose: 75 mcg Metoprolol Succinate (Toprol Xl -) 75 mg PO DAILY [facility] Last Admin: 04/22/19 11:55 Dose: 75 mg Sacubitril/Valsartan (Entresto 24 Mg-26 Mg Tablet) 1 tab PO BID [facility] Last Admin: 04/22/19 21:30 Dose: Not Given Senna (Senna -) 1 tab PO HS PRN PRN Reason: CONSTIPATION Spironolactone (Aldactone -) 25 mg PO DAILY [facility] Last Admin: 04/22/19 11:46 Dose: 25 mg - Objective Vital Signs: Vital Signs Temperature 97.8 F 04/23/19 06:00 Pulse Rate 94 H 04/23/19 06:00 Respiratory Rate 20 04/23/19 06:00 Blood Pressure 90/52 L 04/23/19 06:00 O2 Sat by Pulse Oximetry (%) 96 04/22/19 21:00 Eyes: Yes: WNL, Conjunctiva Clear, EOM Intact HENT: Yes: WNL, Atraumatic, Normocephalic Neck: Yes: WNL, Supple, Trachea Midline Cardiovascular: Yes: WNL, Regular Rate and Rhythm Respiratory: Yes: WNL, Regular, CTA Bilaterally Gastrointestinal: Yes: WNL, Normal Bowel Sounds Genitourinary: Yes: WNL Musculoskeletal: Yes: WNL Extremities: Yes: WNL Edema: Yes Integumentary: Yes: WNL Neurological: Yes: WNL, Alert, Oriented ...Motor Strength: WNL Psychiatric: Yes: WNL Labs: CBC, BMP 04/23/19 06:10 04/23/19 06:10
--- NOTE | 2019-04-23 13:38 | PN ---
Physical Exam: SUBJECTIVE: Patient seen and examined 63 y/o F, pmh of Severe systolic HFrEF s/p ICD, A. Fib, HTN, HLD, CAD s/p CABG and PCI, s/p NSTEMI, HTN, DM, COPD(home 5L), hypothyroidism, presents with worsening abdominal pain, and distention of 3 day duration. Today pt is c/o of excruciating leg pain and back pain. She appears to have mild difficulty breathing. She moved her bowels and has urinated but has difficulty resting due to pain. Denies f/c/n/v/d/chest pain. OBJECTIVE: Vital Signs Period Temp Pulse Resp BP Sys/Santoro Pulse Ox Last 24 Hr 97.4 F-97.8 F 94-101 20-22 90-148/50-63 96 GENERAL: The patient is awake, alert, and fully oriented. Mild distress due to pain. EYES: PERRL, extraocular movements intact, sclera anicteric ENT: oropharynx clear without exudates, moist mucous membranes. NECK: full range of motion, supple. LUNGS: Breath sounds equal, clear to auscultation bilaterally, no wheezes, mild crackles, HEART: Regular rate and irregular rhythm, S1, S2 without murmur, rub or gallop. ABDOMEN: Soft but tender, distended, normoactive bowel sounds, no guarding, no rebound EXTREMITIES: UE: RUE 2+ edema, pitting LE: 2+ pulses, warm, Edema 2+ pitting b/l NEUROLOGICAL: Cranial nerves II through XII grossly intact. PSYCH: Normal mood, normal affect. SKIN: Warm, dry, normal turgor, Laboratory Results - last 24 hr CBC,CMP WBC 6.0 K/mm3 (4.0-10.0) 04/23/19 06:10 RBC 3.97 M/mm3 (3.60-5.2) 04/23/19 06:10 Hgb 11.2 GM/dL (10.7-15.3) 04/23/19 06:10 Hct 34.5 % (32.4-45.2) 04/23/19 06:10 MCV 87.0 fl (80-96) 04/23/19 06:10 MCH 28.3 pg (25.7-33.7) 04/23/19 06:10 MCHC 32.5 g/dl (32.0-36.0) 04/23/19 06:10 RDW 17.6 % (11.6-15.6) H 04/23/19 06:10 Plt Count 252 K/MM3 (134-434) 04/23/19 06:10 MPV 7.6 fl (7.5-11.1) 04/23/19 06:10 Absolute Neuts (auto) 3.7 K/mm3 (1.5-8.0) 04/19/19 12:30 Neutrophils % 64.1 % (42.8-82.8) 04/19/19 12:30 Lymphocytes % 17.9 % (8-40) D 04/19/19 12:30 Monocytes % 17.5 % (3.8-10.2) H 04/19/19 12:30 Eosinophils % 0.0 % (0-4.5) 04/19/19 12:30 Basophils % 0.5 % (0-2.0) 04/19/19 12:30 Nucleated RBC % 1 % (0-0) H 04/19/19 12:30 Sodium 131 mmol/L (136-145) L 04/23/19 06:10 Potassium 4.8 mmol/L (3.5-5.1) 04/23/19 06:10 Chloride 97 mmol/L (98-107) L 04/23/19 06:10 Carbon Dioxide 25 mmol/L (21-32) 04/23/19 06:10 Anion Gap 10 MMOL/L (8-16) 04/23/19 06:10 BUN 87.6 mg/dL (7-18) H 04/23/19 06:10 Creatinine 3.4 mg/dL (0.55-1.3) H 04/23/19 06:10 Est GFR (CKD-EPI)AfAm 15.59 04/23/19 06:10 Est GFR (CKD-EPI)NonAf 13.45 04/23/19 06:10 POC Glucometer 78 UNITS (80-120) 04/23/19 05:15 Random Glucose 83 mg/dL (74-106) 04/23/19 06:10 Calcium 8.1 mg/dL (8.5-10.1) L 04/23/19 06:10 Magnesium 2.2 mg/dL (1.8-2.4) 04/19/19 12:30 Total Bilirubin 1.1 mg/dL (0.2-1) H 04/19/19 12:30 AST 26 U/L (15-37) 04/19/19 12:30 ALT 18 U/L (13-61) 04/19/19 12:30 Alkaline Phosphatase 119 U/L (45-117) H 04/19/19 12:30 Creatine Kinase 125 U/L (26-192) 04/20/19 05:50 Creatine Kinase Index 2.9 % (0.0-5.0) 04/19/19 20:40 CK-MB (CK-2) 4.4 ng/mL (0.5-3.6) H 04/19/19 20:40 Troponin I 0.12 ng/ml (0.00-0.05) H 04/20/19 05:50 B-Natriuretic Peptide 6552.5 pg/ml (5-125) H 04/19/19 12:30 Total Protein 6.7 g/dl (6.4-8.2) 04/19/19 12:30 Albumin 3.2 g/dl (3.4-5.0) L 04/19/19 12:30 Lipase 37 U/L (73-393) L 04/19/19 20:40 Active Medications Current Medications Apixaban (Eliquis -) 5 mg PO BID [facility] Last Admin: 04/23/19 11:33 Dose: 5 mg Clopidogrel Bisulfate (Plavix -) 75 mg PO DAILY [facility] Last Admin: 04/23/19 11:33 Dose: 75 mg Docusate Sodium (Colace -) 100 mg PO DAILY PRN PRN Reason: CONSTIPATION Furosemide (Lasix Injection -) 60 mg IVPUSH BID@0600,1400 [facility] Last Admin: 04/23/19 12:02 Dose: 60 mg Levothyroxine Sodium (Synthroid -) 75 mcg PO DAILY@0700 [facility] Last Admin: 04/23/19 06:26 Dose: 75 mcg Metoprolol Succinate (Toprol Xl -) 75 mg PO DAILY [facility] Last Admin: 04/22/19 11:55 Dose: 75 mg Sacubitril/Valsartan (Entresto 24 Mg-26 Mg Tablet) 1 tab PO BID [facility] Last Admin: 04/22/19 21:30 Dose: Not Given Senna (Senna -) 1 tab PO HS PRN PRN Reason: CONSTIPATION Spironolactone (Aldactone -) 25 mg PO DAILY [facility] Last Admin: 04/22/19 11:46 Dose: 25 mg Home Medications Medication Instructions Recorded Clopidogrel Bisulfate [Plavix -] 75 mg PO DAILY #30 tablet 08/02/17 Levothyroxine [Synthroid -] 75 mcg PO DAILY@0700 30 Days #30 08/02/17 tablet Furosemide [Lasix] 80 mg PO DAILY #30 tablet 10/22/18 Metoprolol Succinate [Toprol XL -] 25 mg PO TID 12/09/18 Spironolactone 25 mg PO DAILY 12/09/18 Sacubitril/Valsartan [Entresto 49 1 tab PO BID #0 tablet 12/16/18 mg-51 mg Tablet] Microbiology 04/19/19 20:40 Urine - Urine Clean Catch Urine Culture - Final NO GROWTH OBTAINED ASSESSMENT/PLAN: 63 y/o F, pmh of Severe systolic HFrEF s/p ICD, A. Fib, HTN, HLD, CAD s/p CABG and PCI, s/p NSTEMI, HTN, DM, COPD(home 5L), hypothyroidism, presents with worsening abdominal pain, and distention of 3 day duration is admitted for acute CHF exacerbation and A-fib w/ RVR #Acute on chronic systolic CHF BP low today- 80/65 increased lasix to 80 BID- monitor for improvement Entresto 24-26mg on hold till BP normalizes cont spironolactone 25 on hold till BP normalizes Hold Inotropes for now- if systolic pressures drops, consider restarting after discussing with cardio #A-fib no hx of previous A-fib cont Toprol 75 Eliquis 5 Will get ICD interrogated #RUE edema likely 2/2 to fluid overload #LIANNA on CKD likely due to cardiorenal syndrome Cre 3.4 today #Hypothyroidism cont synthroid 75mcg #CAD s/p CABG cont Plavix 75 #DVT ppx on eliquis FEN sodium controlled diet monitor lytes Dispo: monitor systolic function, if BP drops, consider inotropes, cont lasix 80 , monitor Cre Visit type - Emergency Visit Emergency Visit: Yes ED Registration Date: 04/19/19 Care time: The patient presented to the Emergency Department on the above date and was hospitalized for further evaluation of their emergent condition. - New Patient This patient is new to me today: Yes Date on this admission: 04/24/19 - Critical Care Critical Care patient: No - Discharge Referral Referred to [facility] Med P.C.: No ATTENDING PHYSICIAN STATEMENT I saw and evaluated the patient. I reviewed the resident's note and discussed the case with the resident. I agree with the resident's findings and plan as documented. SUBJECTIVE: OBJECTIVE: ASSESSMENT AND PLAN:
--- NOTE | 2019-04-23 13:52 | CONSULT ---
Consultation: REQUESTING PROVIDER: Dr. Earl CONSULT SERVICE: Nephrology HISTORY OF PRESENT ILLNESS: Patient is a 63 year old female with history of CHF, CKD, hypertension, hyperlipidemia, coronary artery disease (s/p CABG, pacemaker placeemnt), hypothyroidism, diabetes mellitus, presented with complaint of shortness of breath. Upon presentation she was found to be in Afib and started on Heparin drip, with Metoprolol. Chest radiograph revealed congestive changes, and BNP was 6552. Nephrology was consulted for LIANNA; she was noted to have BUN 56.5/ Cr 2.2 (baseline aprox 1.0) upon admission. Patient believes she was on ?Lasix 80mg twice daily. Past medical history: CHF, hypertension, hyperlipidemia, coronary artery disease (s/p CABG), hypothyroidism, Past surgical history: CABG, right hip surgery, laparoscopic cholestectomy, pacemaker placement Family history: Father, and Mother with HTN, CAD Social history: Current smoker. Admits ocassional ETOH. Denies illicit drug use. REVIEW OF SYSTEMS: As per HPI PHYSICAL EXAMINATION Vital Signs - 24 hr 04/22/19 04/22/19 04/22/19 14:00 18:00 21:00 Temperature 97.4 F L Pulse Rate 101 H 94 H Respiratory 22 H 20 Rate Blood Pressure 148/63 96/59 L O2 Sat by Pulse 96 Oximetry (%) 04/22/19 04/23/19 04/23/19 22:00 02:00 06:00 Temperature 97.5 F L 97.5 F L 97.8 F Pulse Rate 95 H 98 H 94 H Respiratory 22 H 20 20 Rate Blood Pressure 94/50 L 99/52 L 90/52 L O2 Sat by Pulse Oximetry (%) 04/23/19 04/23/19 09:00 11:15 Temperature Pulse Rate Respiratory Rate Blood Pressure 80/65 L O2 Sat by Pulse 100 Oximetry (%) GENERAL: Patient is awake, alert, minimally responsive, in no acute distress. HEAD: NC/AT, PERRL, EOMI. Moist mucous membranes. LUNGS: Good inspiratory effort, faint crackles auscultated bilaterally. No accessory muscle use. HEART: Regular rate and rhythm, normal S1 and S2 without murmur, rub or gallop. ABDOMEN: Obese abdomen. Pitting edema noted. Soft, nontender. Normoactive bowel sounds. EXTREMITIES: 2+ pulses, warm, well-perfused. 2+ peripheral edema bilaterally. NEUROLOGICAL: Cranial nerves II-XII intact. Normal speech. No gross focal deficits. SKIN: Warm, dry. Laboratory Results - last 24 hr 04/22/19 04/22/19 04/23/19 17:20 21:37 05:15 WBC RBC Hgb Hct MCV MCH MCHC RDW Plt Count MPV PTT (Actin FS) Sodium Potassium Chloride Carbon Dioxide Anion Gap BUN Creatinine Est GFR (CKD-EPI)AfAm Est GFR (CKD-EPI)NonAf POC Glucometer 93 90 78 Random Glucose Calcium 04/23/19 04/23/19 04/23/19 06:10 06:10 06:10 WBC 6.0 RBC 3.97 Hgb 11.2 Hct 34.5 MCV 87.0 MCH 28.3 MCHC 32.5 RDW 17.6 H Plt Count 252 MPV 7.6 PTT (Actin FS) 39.8 H Sodium 131 L Potassium 4.8 Chloride 97 L Carbon Dioxide 25 Anion Gap 10 BUN 87.6 H Creatinine 3.4 H Est GFR (CKD-EPI)AfAm 15.59 Est GFR (CKD-EPI)NonAf 13.45 POC Glucometer Random Glucose 83 Calcium 8.1 L Active Medications Generic Name Dose Route Start Last Admin Trade Name Freq PRN Reason Stop Dose Admin Apixaban 5 mg 04/22/19 10:00 04/23/19 11:33 Eliquis - PO 5 mg BID RINA Administration Clopidogrel Bisulfate 75 mg 04/20/19 10:00 04/23/19 11:33 Plavix - PO 75 mg DAILY RINA Administration Docusate Sodium 100 mg 04/21/19 03:21 Colace - PO DAILY PRN CONSTIPATION Furosemide 80 mg 04/23/19 18:00 Lasix Injection - IVPUSH BID@0600,1400 RINA Levothyroxine Sodium 75 mcg 04/20/19 07:00 04/23/19 06:26 Synthroid - PO 75 mcg DAILY@0700 RINA Administration Metoprolol Succinate 75 mg 04/20/19 18:30 04/22/19 11:55 Toprol Xl - PO 75 mg DAILY RINA Administration Sacubitril/Valsartan 1 tab 04/19/19 22:00 04/22/19 21:30 Entresto 24 Mg-26 Mg Tablet PO Not Given BID RINA Senna 1 tab 04/21/19 03:23 Senna - PO HS PRN CONSTIPATION Spironolactone 25 mg 04/20/19 10:00 04/22/19 11:46 Aldactone - PO 25 mg DAILY RINA Administration ASSESSMENT/PLAN: Patient is a 63 year old female with history of CHF, CKD, hypertension, hyperlipidemia, coronary artery disease (s/p CABG, pacemaker placeemnt), hypothyroidism, diabetes mellitus, presented with complaint of shortness of breath. Acute kidney injury -Likely secondary to Type I Cardiorenal syndrome. -Continue diuresis; Lasix 80mg IV BID. Holding Aldactone, to monitor renal response to increased Lasix dose. Monitor urine output closely -Follow Renal, bladder ultrasound -Otain urine electrolytes, urine creatinine. -Recommend holding Entresto due to ARB component in setting of LIANNA. Congestive heart failure exacerbation -Continue diuresis; Lasix 80mg IV BID. Holding Aldactone for now. Disposition: We will continue to follow the patient. Thank you for this consultative opportunity. Visit type - Emergency Visit Emergency Visit: Yes ED Registration Date: 04/19/19 Care time: The patient presented to the Emergency Department on the above date and was hospitalized for further evaluation of their emergent condition. - New Patient This patient is new to me today: Yes Date on this admission: 04/23/19 - Critical Care Critical Care patient: No ATTENDING PHYSICIAN STATEMENT I saw and evaluated the patient. I reviewed the resident's note and discussed the case with the resident. I agree with the resident's findings and plan as documented. SUBJECTIVE: OBJECTIVE: ASSESSMENT AND PLAN:
[2019-04-23] MEDS: SPIRONOLACTONE 25 MG TABLET (FP) PO SCH (14:43)
[2019-04-23] MEDS: SACUBITRIL/VALSARTAN 24 MG-26 MG TABLET PO SCH (14:44)
[2019-04-23] MEDS: metoPROLOL SUCCINATE 25 MG TAB.SR.24H (FP) PO SCH (16:55)
[2019-04-24] MEDS: LEVOTHYROXINE NA 75 MCG TABLET (FP) PO SCH (06:45)
[2019-04-24] MEDS: FUROSEMIDE 40 MG/4 ML INJECTABLE VIAL IVPUSH SCH ×3 (06:45→15:32)
[2019-04-24 07:20] LABS: HEMATOCRIT 33.5 % (32.4-45.2); HEMOGLOBIN 10.6 GM/dL (10.7-15.3); MCH 27.9 pg (25.7-33.7); MCHC 31.8 g/dl (32.0-36.0); MEAN CELL VOLUME 87.8 fl (80-96); MEAN PLT VOLUME 7.9 fl (7.5-11.1); PLATELET COUNT 225 K/MM3 (134-434); RBC 3.82 M/mm3 (3.60-5.2); WHITE BLOOD COUNT 5.2 K/mm3 (4.0-10.0)
[2019-04-24 07:45] LABS: ALBUMIN 2.8 g/dl (3.4-5.0); BILIRUBIN,TOTAL 0.7 mg/dL (0.2-1); BLOOD UREA NITROGEN 96.4 mg/dL (7-18); CREATININE 3.5 mg/dL (0.55-1.3); MAGNESIUM 2.4 mg/dL (1.8-2.4); PHOSPHOROUS 6.6 mg/dL (2.5-4.9); POTASSIUM 4.9 mmol/L (3.5-5.1); TOT PROT 5.8 g/dl (6.4-8.2)
[2019-04-24] MEDS: metoPROLOL SUCCINATE 25 MG TAB.SR.24H (FP) PO SCH (10:55)
[2019-04-24] MEDS: CLOPIDOGREL BISULFATE 75 MG TABLET (FP) PO SCH (10:56)
[2019-04-24] MEDS: APIXABAN 5 MG TABLET PO SCH ×2 (10:56→21:23)
[2019-04-24] MEDS ORDERED: FUROSEMIDE 40 MG TABLET (FP) PO ONE ×2 (14:54)
--- NOTE | 2019-04-24 16:08 | PN ---
Progress Note, Physician History of Present Illness: Pt seen and examined at bedside. She is more awake and alert today. She complains of edema. - Current Medication List Current Medications: Active Medications Apixaban (Eliquis -) 5 mg PO BID [facility] Last Admin: 04/24/19 10:56 Dose: 5 mg Clopidogrel Bisulfate (Plavix -) 75 mg PO DAILY [facility] Last Admin: 04/24/19 10:56 Dose: 75 mg Docusate Sodium (Colace -) 100 mg PO DAILY PRN PRN Reason: CONSTIPATION Furosemide (Lasix Injection -) 80 mg IVPUSH BID@0600,1400 [facility] Last Admin: 04/24/19 15:32 Dose: 80 mg Levothyroxine Sodium (Synthroid -) 75 mcg PO DAILY@0700 [facility] Last Admin: 04/24/19 06:45 Dose: 75 mcg Metoprolol Succinate (Toprol Xl -) 75 mg PO DAILY [facility] Last Admin: 04/24/19 10:55 Dose: Not Given Senna (Senna -) 1 tab PO HS PRN PRN Reason: CONSTIPATION - Objective Vital Signs: Vital Signs Temperature 98.5 F 04/24/19 14:00 Pulse Rate 101 H 04/24/19 14:00 Respiratory Rate 20 04/24/19 10:00 Blood Pressure 134/102 H 04/24/19 14:00 O2 Sat by Pulse Oximetry (%) 100 04/24/19 09:00 Constitutional: Yes: Calm Eyes: Yes: Conjunctiva Clear HENT: Yes: Atraumatic Cardiovascular: Yes: S1, S2 Respiratory: Yes: CTA Bilaterally Gastrointestinal: Yes: Soft, Abdomen, Obese Edema: Yes Edema: LLE: 3+, RLE: 3+ Neurological: Yes: Oriented Labs: CBC, BMP 04/24/19 06:30 04/24/19 06:30 Problem List - Problems (1) LIANNA (acute kidney injury) Code(s): N17.9 - ACUTE KIDNEY FAILURE, UNSPECIFIED (2) Rapid atrial fibrillation Code(s): I48.91 - UNSPECIFIED ATRIAL FIBRILLATION (3) CHF (congestive heart failure) Code(s): I50.9 - HEART FAILURE, UNSPECIFIED Qualifiers: Heart failure type: unspecified Heart failure chronicity: acute on chronic Qualified Code(s): I50.9 - Heart failure, unspecified (4) Anasarca Code(s): R60.1 - GENERALIZED EDEMA Assessment/Plan Current Medications Generic Name Dose Route Start Last Admin Trade Name Freq PRN Reason Stop Dose Admin Apixaban 5 mg 04/22/19 10:00 04/24/19 10:56 Eliquis - PO 5 mg BID RINA Administration Clopidogrel Bisulfate 75 mg 04/20/19 10:00 04/24/19 10:56 Plavix - PO 75 mg DAILY RINA Administration Docusate Sodium 100 mg 04/21/19 03:21 Colace - PO DAILY PRN CONSTIPATION Furosemide 80 mg 04/23/19 18:00 04/24/19 15:32 Lasix Injection - IVPUSH 80 mg BID@0600,1400 RINA Administration Levothyroxine Sodium 75 mcg 04/20/19 07:00 04/24/19 06:45 Synthroid - PO 75 mcg DAILY@0700 RINA Administration Metoprolol Succinate 75 mg 04/20/19 18:30 04/24/19 10:55 Toprol Xl - PO Not Given DAILY RINA Senna 1 tab 04/21/19 03:23 Senna - PO HS PRN CONSTIPATION Impression 1. LIANNA 2. CHF 3. volume overload 4. HTN 5. HLD 6. DM 7. CAD 8. COPD 9. active smoker 10. anasarca 11. hypotension 12. hx of positive danielle Plan - cont lasix - give po as iv is not working - will need if access and lasix - discussed with cardio - entresto on hold for now - daily lytes - will need rheum eval for pos danielle - check daily weights
--- NOTE | 2019-04-24 17:06 | PN ---
Physical Exam: SUBJECTIVE: Patient seen and examined Today pt is c/o of leg pain and back pain. She appears to have mild difficulty breathing. She moved her bowels and has urinated but has difficulty resting due to pain. But reports she is better today than yesterday. Denies f/c/n/v/d/chest pain. OBJECTIVE: Vital Signs Period Temp Pulse Resp BP Sys/Santoro Pulse Ox Last 24 Hr 97.2 F-98.5 F 86-108 20-20 86-134/39-102 96-100 GENERAL: The patient is awake, alert, and fully oriented. Mild distress due to pain. EYES: PERRL, extraocular movements intact, sclera anicteric ENT: oropharynx clear without exudates, moist mucous membranes. NECK: full range of motion, supple. LUNGS: Breath sounds equal, clear to auscultation bilaterally, no wheezes, mild crackles, HEART: Regular rate and irregular rhythm, S1, S2 without murmur, rub or gallop. ABDOMEN: Soft but tender, distended, normoactive bowel sounds, no guarding, no rebound EXTREMITIES: UE: RUE 2+ edema, pitting LE: 2+ pulses, warm, Edema 2+ pitting b/l NEUROLOGICAL: Cranial nerves II through XII grossly intact. PSYCH: Normal mood, normal affect. SKIN: Warm, dry, normal turgor, Laboratory Results - last 24 hr 04/23/19 04/24/19 04/24/19 21:10 06:16 06:30 WBC 5.2 RBC 3.82 Hgb 10.6 L Hct 33.5 MCV 87.8 MCH 27.9 MCHC 31.8 L RDW 17.0 H Plt Count 225 MPV 7.9 PTT (Actin FS) Sodium Potassium Chloride Carbon Dioxide Anion Gap BUN Creatinine Est GFR (CKD-EPI)AfAm Est GFR (CKD-EPI)NonAf POC Glucometer 98 87 Random Glucose Calcium Phosphorus Magnesium Total Bilirubin AST ALT Alkaline Phosphatase Total Protein Albumin Active Medications Generic Name Dose Route Start Last Admin Trade Name Freq PRN Reason Stop Dose Admin Apixaban 5 mg 04/22/19 10:00 04/24/19 10:56 Eliquis - PO 5 mg BID RINA Administration Clopidogrel Bisulfate 75 mg 04/20/19 10:00 04/24/19 10:56 Plavix - PO 75 mg DAILY RINA Administration Docusate Sodium 100 mg 04/21/19 03:21 Colace - PO DAILY PRN CONSTIPATION Furosemide 80 mg 04/23/19 18:00 04/24/19 15:32 Lasix Injection - IVPUSH 80 mg BID@0600,1400 RINA Administration Levothyroxine Sodium 75 mcg 04/20/19 07:00 04/24/19 06:45 Synthroid - PO 75 mcg DAILY@0700 RINA Administration Metoprolol Succinate 75 mg 04/20/19 18:30 04/24/19 10:55 Toprol Xl - PO Not Given DAILY RINA Senna 1 tab 04/21/19 03:23 Senna - PO HS PRN CONSTIPATION ASSESSMENT/PLAN: 63 y/o F, pmh of Severe systolic HFrEF s/p ICD, A. Fib, HTN, HLD, CAD s/p CABG and PCI, s/p NSTEMI, HTN, DM, COPD(home 5L), hypothyroidism, presents with worsening abdominal pain, and distention of 3 day duration is admitted for acute CHF exacerbation and A-fib w/ RVR #Acute on chronic systolic CHF lasix to 80 BID- monitor for improvement spironolactone 25 d/elle Hold Inotropes for now- if systolic pressures drops, consider restarting after discussing with cardio #A-fib no hx of previous A-fib cont Toprol 75 Eliquis 5 Will get ICD interrogated #RUE edema likely 2/2 to fluid overload #LIANNA on CKD likely due to cardiorenal syndrome Cre 3.5 today #Hypothyroidism cont synthroid 75mcg #CAD s/p CABG cont Plavix 75 #DVT ppx on eliquis FEN sodium controlled diet monitor lytes Dispo: monitor systolic function, if BP drops, consider inotropes, cont lasix 80 , monitor Cre Visit type - Emergency Visit Emergency Visit: Yes ED Registration Date: 04/19/19 Care time: The patient presented to the Emergency Department on the above date and was hospitalized for further evaluation of their emergent condition. - New Patient This patient is new to me today: Yes Date on this admission: 04/25/19 - Critical Care Critical Care patient: No - Discharge Referral Referred to [facility] Med P.C.: No ATTENDING PHYSICIAN STATEMENT I saw and evaluated the patient. I reviewed the resident's note and discussed the case with the resident. I agree with the resident's findings and plan as documented. SUBJECTIVE: OBJECTIVE: ASSESSMENT AND PLAN:
--- NOTE | 2019-04-24 18:26 | PN ---
Teaching Attending Note Name of Resident: Rusty Earl ATTENDING PHYSICIAN STATEMENT I saw and evaluated the patient. I reviewed the resident's note and discussed the case with the resident. I agree with the resident's findings and plan as documented. SUBJECTIVE: Patient has no new complains, no nausea or vomiting. OBJECTIVE: Vital Signs Temperature 98.5 F 04/24/19 14:00 Pulse Rate 101 H 04/24/19 14:00 Respiratory Rate 20 04/24/19 10:00 Blood Pressure 134/102 H 04/24/19 14:00 O2 Sat by Pulse Oximetry (%) 100 04/24/19 09:00 GENERAL: The patient is awake, alert, and oriented, in no acute distress. HEAD: Normal with no signs of trauma. EYES: PERRL, extraocular movements intact, sclera anicteric, conjunctiva clear. . ENT: Ears normal, oropharynx clear without exudates, moist mucous membranes. NECK: Trachea midline, full range of motion, supple. LUNGS: Breath sounds equal, clear to auscultation bilaterally, no wheezes, no crackles, no accessory muscle use. HEART: Regular rate and rhythm, S1, S2 positive, brennen 3/6 , no rub or gallop. ABDOMEN: Soft, NT, nondistended, normoactive bowel sounds, no guarding, no rebound, no hepatosplenomegaly, no masses. EXTREMITIES: 2+ pulses, warm, well-perfused, positive for anasarca generalized NEUROLOGICAL: Cranial nerves II through XII grossly intact. Normal speech, gait not observed. PSYCH: flat affect SKIN: Warm, dry, normal turgor, no rashes or lesions noted CBCD WBC 5.2 K/mm3 (4.0-10.0) 04/24/19 06:30 RBC 3.82 M/mm3 (3.60-5.2) 04/24/19 06:30 Hgb 10.6 GM/dL (10.7-15.3) L 04/24/19 06:30 Hct 33.5 % (32.4-45.2) 04/24/19 06:30 MCV 87.8 fl (80-96) 04/24/19 06:30 MCHC 31.8 g/dl (32.0-36.0) L 04/24/19 06:30 RDW 17.0 % (11.6-15.6) H 04/24/19 06:30 Plt Count 225 K/MM3 (134-434) 04/24/19 06:30 MPV 7.9 fl (7.5-11.1) 04/24/19 06:30 CMP Sodium 132 mmol/L (136-145) L 04/24/19 06:30 Potassium 4.9 mmol/L (3.5-5.1) 04/24/19 06:30 Chloride 98 mmol/L (98-107) 04/24/19 06:30 Carbon Dioxide 24 mmol/L (21-32) 04/24/19 06:30 Anion Gap 10 MMOL/L (8-16) 04/24/19 06:30 BUN 96.4 mg/dL (7-18) H 04/24/19 06:30 Creatinine 3.5 mg/dL (0.55-1.3) H 04/24/19 06:30 Random Glucose 74 mg/dL (74-106) 04/24/19 06:30 Calcium 8.0 mg/dL (8.5-10.1) L 04/24/19 06:30 Total Bilirubin 0.7 mg/dL (0.2-1) 04/24/19 06:30 AST 19 U/L (15-37) 04/24/19 06:30 ALT 19 U/L (13-61) 04/24/19 06:30 Alkaline Phosphatase 91 U/L (45-117) 04/24/19 06:30 Total Protein 5.8 g/dl (6.4-8.2) L 04/24/19 06:30 Albumin 2.8 g/dl (3.4-5.0) L 04/24/19 06:30 CARDIAC ENZYMES Creatine Kinase 125 U/L (26-192) 04/20/19 05:50 Troponin I 0.12 ng/ml (0.00-0.05) H 04/20/19 05:50 Current Medications Generic Name Dose Route Start Last Admin Trade Name Freq PRN Reason Stop Dose Admin Apixaban 5 mg 04/22/19 10:00 04/24/19 10:56 Eliquis - PO 5 mg BID RINA Administration Clopidogrel Bisulfate 75 mg 04/20/19 10:00 04/24/19 10:56 Plavix - PO 75 mg DAILY RINA Administration Docusate Sodium 100 mg 04/21/19 03:21 Colace - PO DAILY PRN CONSTIPATION Furosemide 80 mg 04/23/19 18:00 04/24/19 15:32 Lasix Injection - IVPUSH 80 mg BID@0600,1400 RINA Administration Levothyroxine Sodium 75 mcg 04/20/19 07:00 04/24/19 06:45 Synthroid - PO 75 mcg DAILY@0700 RINA Administration Metoprolol Succinate 75 mg 04/20/19 18:30 04/24/19 10:55 Toprol Xl - PO Not Given DAILY RINA Senna 1 tab 04/21/19 03:23 Senna - PO HS PRN CONSTIPATION Home Medications Medication Instructions Recorded Clopidogrel Bisulfate [Plavix -] 75 mg PO DAILY #30 tablet 08/02/17 Levothyroxine [Synthroid -] 75 mcg PO DAILY@0700 30 Days #30 08/02/17 tablet Furosemide [Lasix] 80 mg PO DAILY #30 tablet 10/22/18 Metoprolol Succinate [Toprol XL -] 25 mg PO TID 12/09/18 Spironolactone 25 mg PO DAILY 12/09/18 Sacubitril/Valsartan [Entresto 49 1 tab PO BID #0 tablet 12/16/18 mg-51 mg Tablet] Microbiology 04/19/19 20:40 Urine - Urine Clean Catch Urine Culture - Final NO GROWTH OBTAINED ASSESSMENT AND PLAN: Patient is a 61 yo female, with PMhx of hypertension, hypercholesterolemia, CAD, NE(X2, s/p defibrillator/pacemaker and CABG), CHF, DM II, kidney stones, peripheral neuropathy, hypothyroidism, and non compliance who presented with SOB and was found to have A fib with RVR and Acute exacerbation of diastolic and Systolic CHF # Acute new onset A fib: on BB, eliquis. # Acute on chronic diastolic and systolic CHF:on IV lasix to 80 mg BID , will hold Entresto, spironolactone, cont BB . # LIANNA on CKD: due to cardiorenal syndrome , continue diuresing the patient #Anasarca on IV Lasix continue, nephro consult appreciated # Elevated trop : no evidence of ischemia DVT PX: elliquis
[2019-04-25] MEDS: LEVOTHYROXINE NA 75 MCG TABLET (FP) PO SCH (06:26)
[2019-04-25] MEDS: FUROSEMIDE 40 MG/4 ML INJECTABLE VIAL IVPUSH SCH ×2 (06:26→17:26)
[2019-04-25 06:58] LABS: HEMOGLOBIN 10.5 GM/dL (10.7-15.3); MCH 28.1 pg (25.7-33.7); MCHC 32.8 g/dl (32.0-36.0); MEAN CELL VOLUME 85.8 fl (80-96); MEAN PLT VOLUME 7.9 fl (7.5-11.1); PLATELET COUNT 220 K/MM3 (134-434); RBC 3.74 M/mm3 (3.60-5.2); RDW 16.6 % (11.6-15.6); WHITE BLOOD COUNT 5.3 K/mm3 (4.0-10.0)
[2019-04-25 07:19] LABS: CALCIUM 8.1 mg/dL (8.5-10.1); POTASSIUM 4.8 mmol/L (3.5-5.1)
[2019-04-25 07:21] LABS: BLOOD UREA NITROGEN 105.6 mg/dL (7-18)
[2019-04-25] MEDS: CLOPIDOGREL BISULFATE 75 MG TABLET (FP) PO SCH (10:21)
[2019-04-25] MEDS: APIXABAN 5 MG TABLET PO SCH ×2 (10:21→21:42)
[2019-04-25] MEDS: metoPROLOL SUCCINATE 25 MG TAB.SR.24H (FP) PO SCH (10:24)
[2019-04-25] MEDS ORDERED: FUROSEMIDE 40 MG TABLET (FP) PO ONE ×3 (13:27→17:30)
[2019-04-25] MEDS ORDERED: METOLAZONE 2.5 MG TABLET (FP) PO ONE (13:27)
--- NOTE | 2019-04-25 13:57 | PN ---
Physical Exam: SUBJECTIVE: Patient seen and examined Pt reports improvement today than yesterday. However, she appears the same. She still has mild difficulty breathing and severe pain throughout. She moved her bowels and has urinated but has difficulty resting due to pain. Denies f/c/n/v/d /chest pain. OBJECTIVE: Vital Signs Period Temp Pulse Resp BP Sys/Santoro Pulse Ox Last 24 Hr 97.4 F-98.5 F 101-118 20-20 92-134/62-102 100-100 GENERAL: The patient is awake, alert, and fully oriented. Mild distress due to pain. EYES: PERRL, extraocular movements intact, sclera anicteric ENT: oropharynx clear without exudates, moist mucous membranes. NECK: full range of motion, supple. LUNGS: Breath sounds equal, clear to auscultation bilaterally, no wheezes, mild crackles, HEART: Regular rate and irregular rhythm, S1, S2 without murmur, rub or gallop. ABDOMEN: Soft but tender, distended, normoactive bowel sounds, no guarding, no rebound EXTREMITIES: UE: RUE 2+ edema, pitting LE: 2+ pulses, warm, Edema 2+ pitting b/l, Small pockets of fluid are developing under her 1st and 2nd toes b/l- likely signs of fluid overload worsening NEUROLOGICAL: Cranial nerves II through XII grossly intact. PSYCH: Normal mood, normal affect. SKIN: Warm, dry, normal turgor, Laboratory Results - last 24 hr CBC,CMP WBC 5.3 K/mm3 (4.0-10.0) 04/25/19 05:25 RBC 3.74 M/mm3 (3.60-5.2) 04/25/19 05:25 Hgb 10.5 GM/dL (10.7-15.3) L 04/25/19 05:25 Hct 32.0 % (32.4-45.2) L 04/25/19 05:25 MCV 85.8 fl (80-96) 04/25/19 05:25 MCH 28.1 pg (25.7-33.7) 04/25/19 05:25 MCHC 32.8 g/dl (32.0-36.0) 04/25/19 05:25 RDW 16.6 % (11.6-15.6) H 04/25/19 05:25 Plt Count 220 K/MM3 (134-434) 04/25/19 05:25 MPV 7.9 fl (7.5-11.1) 04/25/19 05:25 Absolute Neuts (auto) 3.7 K/mm3 (1.5-8.0) 04/19/19 12:30 Neutrophils % 64.1 % (42.8-82.8) 04/19/19 12:30 Lymphocytes % 17.9 % (8-40) D 04/19/19 12:30 Monocytes % 17.5 % (3.8-10.2) H 04/19/19 12:30 Eosinophils % 0.0 % (0-4.5) 04/19/19 12:30 Basophils % 0.5 % (0-2.0) 04/19/19 12:30 Nucleated RBC % 1 % (0-0) H 04/19/19 12:30 Sodium 131 mmol/L (136-145) L 04/25/19 05:25 Potassium 4.8 mmol/L (3.5-5.1) 04/25/19 05:25 Chloride 98 mmol/L (98-107) 04/25/19 05:25 Carbon Dioxide 22 mmol/L (21-32) 04/25/19 05:25 Anion Gap 10 MMOL/L (8-16) 04/25/19 05:25 BUN 105.6 mg/dL (7-18) H* 04/25/19 05:25 Creatinine 3.0 mg/dL (0.55-1.3) H 04/25/19 05:25 Est GFR (CKD-EPI)AfAm 18.14 04/25/19 05:25 Est GFR (CKD-EPI)NonAf 15.65 04/25/19 05:25 POC Glucometer 86 UNITS (80-120) 04/25/19 06:22 Random Glucose 86 mg/dL (74-106) 04/25/19 05:25 Calcium 8.1 mg/dL (8.5-10.1) L 04/25/19 05:25 Phosphorus 6.6 mg/dL (2.5-4.9) H 04/24/19 06:30 Magnesium 2.4 mg/dL (1.8-2.4) 04/24/19 06:30 Total Bilirubin 0.7 mg/dL (0.2-1) 04/24/19 06:30 AST 19 U/L (15-37) 04/24/19 06:30 ALT 19 U/L (13-61) 04/24/19 06:30 Alkaline Phosphatase 91 U/L (45-117) 04/24/19 06:30 Creatine Kinase 125 U/L (26-192) 04/20/19 05:50 Creatine Kinase Index 2.9 % (0.0-5.0) 04/19/19 20:40 CK-MB (CK-2) 4.4 ng/mL (0.5-3.6) H 04/19/19 20:40 Troponin I 0.12 ng/ml (0.00-0.05) H 04/20/19 05:50 B-Natriuretic Peptide 6552.5 pg/ml (5-125) H 04/19/19 12:30 Total Protein 5.8 g/dl (6.4-8.2) L 04/24/19 06:30 Albumin 2.8 g/dl (3.4-5.0) L 04/24/19 06:30 Lipase 37 U/L (73-393) L 04/19/19 20:40 Active Medications Current Medications Apixaban (Eliquis -) 5 mg PO BID [facility] Last Admin: 04/25/19 10:21 Dose: 5 mg Clopidogrel Bisulfate (Plavix -) 75 mg PO DAILY [facility] Last Admin: 04/25/19 10:21 Dose: 75 mg Docusate Sodium (Colace -) 100 mg PO DAILY PRN PRN Reason: CONSTIPATION Furosemide (Lasix Injection -) 80 mg IVPUSH BID@0600,1400 [facility] Last Admin: 04/25/19 06:26 Dose: 80 mg Furosemide (Lasix -) 100 mg PO ONCE ONE Stop: 04/25/19 13:28 Levothyroxine Sodium (Synthroid -) 75 mcg PO DAILY@0700 [facility] Last Admin: 04/25/19 06:26 Dose: 75 mcg Metolazone (Zaroxolyn -) 2.5 mg PO ONCE ONE Stop: 04/25/19 13:28 Metoprolol Succinate (Toprol Xl -) 75 mg PO DAILY [facility] Last Admin: 04/25/19 10:24 Dose: 75 mg Senna (Senna -) 1 tab PO HS PRN PRN Reason: CONSTIPATION Home Medications Medication Instructions Recorded Clopidogrel Bisulfate [Plavix -] 75 mg PO DAILY #30 tablet 08/02/17 Levothyroxine [Synthroid -] 75 mcg PO DAILY@0700 30 Days #30 08/02/17 tablet Furosemide [Lasix] 80 mg PO DAILY #30 tablet 10/22/18 Metoprolol Succinate [Toprol XL -] 25 mg PO TID 12/09/18 Spironolactone 25 mg PO DAILY 12/09/18 Sacubitril/Valsartan [Entresto 49 1 tab PO BID #0 tablet 12/16/18 mg-51 mg Tablet] Microbiology 04/19/19 20:40 Urine - Urine Clean Catch Urine Culture - Final NO GROWTH OBTAINED ASSESSMENT/PLAN: 63 y/o F, pmh of Severe systolic HFrEF s/p ICD, A. Fib, HTN, HLD, CAD s/p CABG and PCI, s/p NSTEMI, HTN, DM, COPD(home 5L), hypothyroidism, presents with worsening abdominal pain, and distention of 3 day duration is admitted for acute CHF exacerbation and A-fib w/ RVR #Acute on chronic systolic CHF Small pockets of fluid are developing under her toes b/l- 1st and 2nd toes- likely sign of worsening fluid overload Aggressive lasix therapy needed Increased lasix to 100 BID- monitor for improvement Hold Inotropes for now- if systolic pressures drops, consider restarting after discussing with cardio Pt keeps pulling out her IV lines, we will need a new one- attempting to place one #A-fib no hx of previous A-fib cont Toprol 75 Eliquis 5 Will get ICD interrogated #RUE edema likely 2/2 to fluid overload #LIANNA on CKD likely due to cardiorenal syndrome Cre 3.0 today BUN 105.6 #Hypothyroidism cont synthroid 75mcg #CAD s/p CABG cont Plavix 75 #DVT ppx on eliquis FEN sodium controlled diet monitor lytes Dispo: monitor systolic function, if BP drops, consider inotropes, cont lasix 100, monitor Cre Visit type - Emergency Visit Emergency Visit: Yes ED Registration Date: 04/19/19 Care time: The patient presented to the Emergency Department on the above date and was hospitalized for further evaluation of their emergent condition. - New Patient This patient is new to me today: Yes Date on this admission: 04/27/19 - Critical Care Critical Care patient: No - Discharge Referral Referred to [facility] No ATTENDING PHYSICIAN STATEMENT I saw and evaluated the patient. I reviewed the resident's note and discussed the case with the resident. I agree with the resident's findings and plan as documented. SUBJECTIVE: OBJECTIVE: ASSESSMENT AND PLAN:
--- NOTE | 2019-04-25 14:07 | PN ---
Progress Note, Physician History of Present Illness: Pt seen and examined at bedside. She is awake and alert. Her IV is not working again. she did get her am dose of lasix. - Current Medication List Current Medications: Active Medications Apixaban (Eliquis -) 5 mg PO BID [facility] Last Admin: 04/25/19 10:21 Dose: 5 mg Clopidogrel Bisulfate (Plavix -) 75 mg PO DAILY [facility] Last Admin: 04/25/19 10:21 Dose: 75 mg Docusate Sodium (Colace -) 100 mg PO DAILY PRN PRN Reason: CONSTIPATION Furosemide (Lasix Injection -) 80 mg IVPUSH BID@0600,1400 [facility] Last Admin: 04/25/19 06:26 Dose: 80 mg Levothyroxine Sodium (Synthroid -) 75 mcg PO DAILY@0700 [facility] Last Admin: 04/25/19 06:26 Dose: 75 mcg Metoprolol Succinate (Toprol Xl -) 75 mg PO DAILY [facility] Last Admin: 04/25/19 10:24 Dose: 75 mg Senna (Senna -) 1 tab PO HS PRN PRN Reason: CONSTIPATION - Objective Vital Signs: Vital Signs Temperature 97.4 F L 04/25/19 10:00 Pulse Rate 118 H 04/25/19 10:00 Respiratory Rate 20 04/25/19 10:00 Blood Pressure 116/65 04/25/19 10:00 O2 Sat by Pulse Oximetry (%) 100 04/25/19 09:00 Constitutional: Yes: Calm Eyes: Yes: Conjunctiva Clear HENT: Yes: Atraumatic Neck: Yes: Supple Cardiovascular: Yes: S1, S2 Respiratory: Yes: On Nasal O2, Rhonchi Gastrointestinal: Yes: Normal Bowel Sounds, Soft, Abdomen, Obese Genitourinary: Yes: WNL Musculoskeletal: Yes: Muscle Weakness Edema: Yes Neurological: Yes: Oriented Labs: CBC, BMP 04/25/19 05:25 04/25/19 05:25 Problem List - Problems (1) LIANNA (acute kidney injury) Code(s): N17.9 - ACUTE KIDNEY FAILURE, UNSPECIFIED (2) Rapid atrial fibrillation Code(s): I48.91 - UNSPECIFIED ATRIAL FIBRILLATION (3) CHF (congestive heart failure) Code(s): I50.9 - HEART FAILURE, UNSPECIFIED Qualifiers: Heart failure type: unspecified Heart failure chronicity: acute on chronic Qualified Code(s): I50.9 - Heart failure, unspecified (4) Anasarca Code(s): R60.1 - GENERALIZED EDEMA Assessment/Plan Current Medications Generic Name Dose Route Start Last Admin Trade Name Freq PRN Reason Stop Dose Admin Apixaban 5 mg 04/22/19 10:00 04/25/19 10:21 Eliquis - PO 5 mg BID RINA Administration Clopidogrel Bisulfate 75 mg 04/20/19 10:00 04/25/19 10:21 Plavix - PO 75 mg DAILY RINA Administration Docusate Sodium 100 mg 04/21/19 03:21 Colace - PO DAILY PRN CONSTIPATION Furosemide 80 mg 04/23/19 18:00 04/25/19 06:26 Lasix Injection - IVPUSH 80 mg BID@0600,1400 RINA Administration Levothyroxine Sodium 75 mcg 04/20/19 07:00 04/25/19 06:26 Synthroid - PO 75 mcg DAILY@0700 RINA Administration Metoprolol Succinate 75 mg 04/20/19 18:30 04/25/19 10:24 Toprol Xl - PO 75 mg DAILY RINA Administration Senna 1 tab 04/21/19 03:23 Senna - PO HS PRN CONSTIPATION Impression 1. LIANNA 2. CHF 3. volume overload 4. HTN 5. HLD 6. DM 7. CAD 8. COPD 9. active smoker 10. anasarca 11. hypotension 12. hx of positive danielle Plan - give po lasix until IV established - can give a dose of metolazone as well - global implementation manager is improving - monitor potassium - global implementation manager is improving - pt remain overloaded - daily lytes - will need rheum eval for pos danielle - check daily weights
[2019-04-25] MEDS ORDERED: PT OWN MED DRAWER 7, Y5N ONE ×2 (15:57→17:13)
--- NOTE | 2019-04-25 17:24 | PN ---
Progress Note, Physician History of Present Illness: The patient is a 63 year old female, with a significant PMH of eevere systolic HFrEF s/p ICD, A. Fib, HTN, HLD, CAD s/p CABG and PCI, s/p NSTEMI, HTN, DM, COPD (home 5L), hypothyroidism, who presents to the ED for evaluation of worsening abdomen distention and diffuse abdominal pain x 3 days. Patient reports that she has been feeling whole body aching for a while, but it became worse over the past 3 days, along with a sharp diffuse abdominal pain, that became distended. Patient also endorses weakness and bilateral lower extremity edema, dyspnea, orthopnea. Patient previously admitted for the same complaint. She denies near or true syncope or palpitations, diet, medication indiscretion or NSAID use. Abd/pelvic CT and abd US shows significant ascites. - Current Medication List Current Medications: Active Medications Apixaban (Eliquis -) 5 mg PO BID [facility] Last Admin: 04/25/19 10:21 Dose: 5 mg Clopidogrel Bisulfate (Plavix -) 75 mg PO DAILY [facility] Last Admin: 04/25/19 10:21 Dose: 75 mg Docusate Sodium (Colace -) 100 mg PO DAILY PRN PRN Reason: CONSTIPATION Furosemide (Lasix Injection -) 80 mg IVPUSH BID@0600,1400 [facility] Last Admin: 04/25/19 06:26 Dose: 80 mg Furosemide (Lasix -) 100 mg PO ONCE ONE Stop: 04/25/19 17:31 Levothyroxine Sodium (Synthroid -) 75 mcg PO DAILY@0700 [facility] Last Admin: 04/25/19 06:26 Dose: 75 mcg Metoprolol Succinate (Toprol Xl -) 75 mg PO DAILY [facility] Last Admin: 04/25/19 10:24 Dose: 75 mg Senna (Senna -) 1 tab PO HS PRN PRN Reason: CONSTIPATION - Objective Vital Signs: Vital Signs Temperature 97.6 F 04/25/19 14:00 Pulse Rate 101 H 04/25/19 14:00 Respiratory Rate 20 04/25/19 14:00 Blood Pressure 107/61 04/25/19 14:00 O2 Sat by Pulse Oximetry (%) 100 04/25/19 09:00 Eyes: Yes: WNL, Conjunctiva Clear, EOM Intact HENT: Yes: WNL, Atraumatic, Normocephalic Neck: Yes: WNL, Supple, Trachea Midline Cardiovascular: Yes: WNL, Regular Rate and Rhythm Respiratory: Yes: WNL, Regular, CTA Bilaterally Gastrointestinal: Yes: WNL, Normal Bowel Sounds Genitourinary: Yes: WNL Musculoskeletal: Yes: WNL Extremities: Yes: WNL Edema: Yes Integumentary: Yes: WNL Neurological: Yes: WNL, Alert, Oriented ...Motor Strength: WNL Psychiatric: Yes: WNL Labs: CBC, BMP 04/25/19 05:25 04/25/19 05:25 Assessment/Plan Problem List - Problems (1) Rapid atrial fibrillation Code(s): I48.91 - UNSPECIFIED ATRIAL FIBRILLATION (2) Subendocardial ischemia Code(s): I24.8 - OTHER FORMS OF ACUTE ISCHEMIC HEART DISEASE (3) Ascites Code(s): R18.8 - OTHER ASCITES Qualifiers: Ascites type: other type Qualified Code(s): R18.8 - Other ascites Assessment/Plan 09/25/2018 Severely dilated with severely decreased LVEF, severe MR, TR, mod STERLING , pacer RV Problems (1) Hx of CABG Assessment/Plan: f/u results of most recent coronary angiogram, statin per primary cards team, change Plavix to DOAC if CAD stable Code(s): Z95.1 - PRESENCE OF AORTOCORONARY BYPASS GRAFT (2) AICD (automatic cardioverter/defibrillator) present Assessment/Plan: check when ICD interrogation was last done as outpatient, and repeat if not done within the past 3 months (this may be done as outpatient). Code(s): Z95.810 - PRESENCE OF AUTOMATIC (IMPLANTABLE) CARDIAC DEFIBRILLATOR (3) Acute on chronic systolic and diastolic heart failure, NYHA class 3 Assessment/Plan: Elevated BNP (chronic); now 6552 No JVD; no acute pathology on CXR. Plan: IV diuresis with monitor diuretic response, renal fxn and electrolyes Decrease Entresto 24/26 mg bid; f/u BUN/Cr, electrolytes, Hb. Continue metoprolol ER 75 mg qd, spironolactone 25 qd Keep K+ 4-4.5; Mg 2-2.4 Ms. Rea has been admitted several times already this year for heart failure; she has been scheduled in the past for evaluation by heart failure group as an outpatient, but has yet to attend. Will reschedule as outpatient (and if pt's condition deteriorates this admission, will attempt to arrange for transfer). Code(s): I50.43 - ACUTE ON CHRONIC COMBINED SYSTOLIC AND DIASTOLIC HRT FAIL (4) Anasarca Code(s): R60.1 - GENERALIZED EDEMA Consider diagnostic/therapeutic paracentesis, heparin gtt periprocedure, change Plavix to DOAC if CAD stable (5) Obesity Assessment/Plan: dietary education would be of benefit. Code(s): E66.9 - OBESITY, UNSPECIFIED (6) Cigarette nicotine dependence Code(s): F17.210 - NICOTINE DEPENDENCE, CIGARETTES, UNCOMPLICATED (7) Peripheral neuropathy Code(s): G62.9 - POLYNEUROPATHY, UNSPECIFIED Qualifiers: Peripheral neuropathy type: polyneuropathy, unspecified Qualified Code(s): G62.9 - Polyneuropathy, unspecified (8) Sleep apnea Assessment/Plan: CPAP. Code(s): G47.30 - SLEEP APNEA, UNSPECIFIED (9) Sphincter of Oddi dysfunction Code(s): K83.4 - SPASM OF SPHINCTER OF ODDI (10) Status post THR (total hip replacement) Code(s): Z96.649 - PRESENCE OF UNSPECIFIED ARTIFICIAL HIP JOINT (11) Anemia Code(s): D64.9 - ANEMIA, UNSPECIFIED (12) Acute on CKD N17.9 due to hemodynamic alterations (13) Hypothroidism E03.9 On Synthroid 75 qd
--- NOTE | 2019-04-25 19:29 | PN ---
Teaching Attending Note Name of Resident: Rusty Earl ATTENDING PHYSICIAN STATEMENT I saw and evaluated the patient. I reviewed the resident's note and discussed the case with the resident. I agree with the resident's findings and plan as documented. SUBJECTIVE: Patient has no new complains, no nausea or vomiting. OBJECTIVE: Vital Signs Temperature 97.3 F L 04/25/19 18:00 Pulse Rate 101 H 04/25/19 18:00 Respiratory Rate 20 04/25/19 18:00 Blood Pressure 91/71 04/25/19 18:00 O2 Sat by Pulse Oximetry (%) 100 04/25/19 09:00 GENERAL: The patient is awake, alert, and oriented, in no acute distress. HEAD: Normal with no signs of trauma. EYES: PERRL, extraocular movements intact, sclera anicteric, conjunctiva clear. . ENT: Ears normal, oropharynx clear without exudates, moist mucous membranes. NECK: Trachea midline, full range of motion, supple. LUNGS: Breath sounds equal, clear to auscultation bilaterally, no wheezes, no crackles, no accessory muscle use. HEART: Regular rate and rhythm, S1, S2 positive, brennen 3/6 , no rub or gallop. ABDOMEN: Soft, NT, nondistended, normoactive bowel sounds, no guarding, no rebound, no hepatosplenomegaly, no masses. EXTREMITIES: 2+ pulses, warm, well-perfused, positive for anasarca generalized NEUROLOGICAL: Cranial nerves II through XII grossly intact. Normal speech, gait not observed. PSYCH: flat affect SKIN: Warm, dry, normal turgor, no rashes or lesions noted CBCD WBC 5.3 K/mm3 (4.0-10.0) 04/25/19 05:25 RBC 3.74 M/mm3 (3.60-5.2) 04/25/19 05:25 Hgb 10.5 GM/dL (10.7-15.3) L 04/25/19 05:25 Hct 32.0 % (32.4-45.2) L 04/25/19 05:25 MCV 85.8 fl (80-96) 04/25/19 05:25 MCHC 32.8 g/dl (32.0-36.0) 04/25/19 05:25 RDW 16.6 % (11.6-15.6) H 04/25/19 05:25 Plt Count 220 K/MM3 (134-434) 04/25/19 05:25 MPV 7.9 fl (7.5-11.1) 04/25/19 05:25 CMP Sodium 131 mmol/L (136-145) L 04/25/19 05:25 Potassium 4.8 mmol/L (3.5-5.1) 04/25/19 05:25 Chloride 98 mmol/L (98-107) 04/25/19 05:25 Carbon Dioxide 22 mmol/L (21-32) 04/25/19 05:25 Anion Gap 10 MMOL/L (8-16) 04/25/19 05:25 BUN 105.6 mg/dL (7-18) H* 04/25/19 05:25 Creatinine 3.0 mg/dL (0.55-1.3) H 04/25/19 05:25 Random Glucose 86 mg/dL (74-106) 04/25/19 05:25 Calcium 8.1 mg/dL (8.5-10.1) L 04/25/19 05:25 Total Bilirubin 0.7 mg/dL (0.2-1) 04/24/19 06:30 AST 19 U/L (15-37) 04/24/19 06:30 ALT 19 U/L (13-61) 04/24/19 06:30 Alkaline Phosphatase 91 U/L (45-117) 04/24/19 06:30 Total Protein 5.8 g/dl (6.4-8.2) L 04/24/19 06:30 Albumin 2.8 g/dl (3.4-5.0) L 04/24/19 06:30 CARDIAC ENZYMES Creatine Kinase 125 U/L (26-192) 04/20/19 05:50 Troponin I 0.12 ng/ml (0.00-0.05) H 04/20/19 05:50 Current Medications Generic Name Dose Route Start Last Admin Trade Name Freq PRN Reason Stop Dose Admin Apixaban 5 mg 04/22/19 10:00 04/25/19 10:21 Eliquis - PO 5 mg BID RINA Administration Clopidogrel Bisulfate 75 mg 04/20/19 10:00 04/25/19 10:21 Plavix - PO 75 mg DAILY RINA Administration Docusate Sodium 100 mg 04/21/19 03:21 Colace - PO DAILY PRN CONSTIPATION Furosemide 80 mg 04/23/19 18:00 04/25/19 17:26 Lasix Injection - IVPUSH Not Given BID@0600,1400 RINA Levothyroxine Sodium 75 mcg 04/20/19 07:00 04/25/19 06:26 Synthroid - PO 75 mcg DAILY@0700 RINA Administration Metoprolol Succinate 75 mg 04/20/19 18:30 04/25/19 10:24 Toprol Xl - PO 75 mg DAILY RINA Administration Senna 1 tab 04/21/19 03:23 Senna - PO HS PRN CONSTIPATION Home Medications Medication Instructions Recorded Clopidogrel Bisulfate [Plavix -] 75 mg PO DAILY #30 tablet 08/02/17 Levothyroxine [Synthroid -] 75 mcg PO DAILY@0700 30 Days #30 08/02/17 tablet Furosemide [Lasix] 80 mg PO DAILY #30 tablet 10/22/18 Metoprolol Succinate [Toprol XL -] 25 mg PO TID 12/09/18 Spironolactone 25 mg PO DAILY 12/09/18 Sacubitril/Valsartan [Entresto 49 1 tab PO BID #0 tablet 12/16/18 mg-51 mg Tablet] Microbiology 2 04/19/19 20:40 Urine - Urine Clean Catch Urine Culture - Final NO GROWTH OBTAINED ASSESSMENT AND PLAN: Patient is a 61 yo female, with PMhx of hypertension, hypercholesterolemia, CAD, UT(X2, s/p defibrillator/pacemaker and CABG), CHF, DM II, kidney stones, peripheral neuropathy, hypothyroidism, and non compliance who presented with SOB and was found to have A fib with RVR and Acute exacerbation of diastolic and Systolic CHF # Acute new onset A fib: on BB, eliquis continue # Anasarca contnue lasix , nephro on the case # Acute on chronic diastolic and systolic CHF: continue IV lasix to 80 mg BID , will hold Entresto, spironolactone, cont BB . - ICD interrogation pending. # LIANNA on CKD: due to cardiorenal syndrome , continue diuresis. # Elevated trop : no evidence of ischemia DVT PX: elliquis
[2019-04-26] MEDS: LEVOTHYROXINE NA 75 MCG TABLET (FP) PO SCH (06:26)
[2019-04-26] MEDS: FUROSEMIDE 40 MG/4 ML INJECTABLE VIAL IVPUSH SCH ×2 (06:26→14:22)
[2019-04-26] MEDS: metoPROLOL SUCCINATE 25 MG TAB.SR.24H (FP) PO SCH (10:24)
[2019-04-26] MEDS: APIXABAN 5 MG TABLET PO SCH ×2 (10:24→22:20)
[2019-04-26] MEDS: CLOPIDOGREL BISULFATE 75 MG TABLET (FP) PO SCH (10:24)
[2019-04-26 11:57] LABS: HEMATOCRIT 37.3 % (32.4-45.2); MCHC 32.3 g/dl (32.0-36.0); MEAN CELL VOLUME 86.9 fl (80-96); MEAN PLT VOLUME 7.8 fl (7.5-11.1); PLATELET COUNT 247 K/MM3 (134-434); RDW 16.6 % (11.6-15.6); WHITE BLOOD COUNT 5.6 K/mm3 (4.0-10.0)
[2019-04-26 12:18] LABS: ALBUMIN 3.1 g/dl (3.4-5.0); BILIRUBIN,TOTAL 0.9 mg/dL (0.2-1); CREATININE 2.2 mg/dL (0.55-1.3); POTASSIUM 3.9 mmol/L (3.5-5.1); TOT PROT 7.1 g/dl (6.4-8.2)
--- NOTE | 2019-04-26 14:13 | PN ---
Progress Note (short form) - Note Progress Note: RENAL pt is awake and alert sitting up comfortably Last Vital Signs Temp Pulse Resp BP Pulse Ox 97.8 F 98 H 22 H 106/71 99 04/26/19 09:00 04/26/19 09:00 04/26/19 09:00 04/26/19 09:00 04/25/19 21:00 lungs clear cvs s1s2 rr +brennen abd soft ext +edema neuro alert, does not respond to all questions CBC, BMP 04/26/19 11:16 04/26/19 11:16 Current Medications Generic Name Dose Route Start Last Admin Trade Name Freq PRN Reason Stop Dose Admin Apixaban 5 mg 04/22/19 10:00 04/26/19 10:24 Eliquis - PO 5 mg BID RINA Administration Clopidogrel Bisulfate 75 mg 04/20/19 10:00 04/26/19 10:24 Plavix - PO 75 mg DAILY RINA Administration Docusate Sodium 100 mg 04/21/19 03:21 Colace - PO DAILY PRN CONSTIPATION Furosemide 80 mg 04/23/19 18:00 04/26/19 06:26 Lasix Injection - IVPUSH 80 mg BID@0600,1400 RINA Administration Levothyroxine Sodium 75 mcg 04/20/19 07:00 04/26/19 06:26 Synthroid - PO 75 mcg DAILY@0700 RINA Administration Metoprolol Succinate 75 mg 04/20/19 18:30 04/26/19 10:24 Toprol Xl - PO 75 mg DAILY RINA Administration Senna 1 tab 04/21/19 03:23 Senna - PO HS PRN CONSTIPATION Impression 1. LIANNA 2. CHF 3. volume overload 4. HTN 5. HLD 6. DM 7. CAD 8. COPD 9. active smoker 10. anasarca 11. hypotension 12. hx of positive danielle 13 high bun maybe from chf- right sided Plan continue lasix monitor BUN guaiac stools had a prevoid volume of 70 cc- no intervention necessary keep monitoring MV
--- NOTE | 2019-04-26 19:09 | PN ---
Progress Note (short form) - Note Progress Note: Patient has no new complains, no nausea or vomiting. OBJECTIVE: Vital Signs Temperature 97.8 F 04/26/19 13:00 Pulse Rate 98 H 04/26/19 13:00 Respiratory Rate 22 H 04/26/19 13:00 Blood Pressure 121/76 04/26/19 13:00 O2 Sat by Pulse Oximetry (%) 99 04/26/19 09:00 GENERAL: The patient is awake, alert, and oriented, in no acute distress. HEAD: Normal with no signs of trauma. EYES: PERRL, extraocular movements intact, sclera anicteric, conjunctiva clear. . ENT: Ears normal, oropharynx clear without exudates, moist mucous membranes. NECK: Trachea midline, full range of motion, supple. LUNGS:decreased Breath sounds bl, no wheezes, no crackles, no accessory muscle use. HEART: Regular rate and rhythm, S1, S2 positive, brennen 3/6 , no rub or gallop. ABDOMEN: Soft, NT, nondistended, normoactive bowel sounds, no guarding, no rebound, no hepatosplenomegaly, no masses. EXTREMITIES: 2+ pulses, warm, well-perfused, positive for anasarca generalized , 3+ edema of lower extremities NEUROLOGICAL: Cranial nerves II through XII grossly intact. Normal speech, gait not observed. PSYCH: flat affect SKIN: Warm, dry, normal turgor, no rashes or lesions noted CBCD WBC 5.6 K/mm3 (4.0-10.0) 04/26/19 11:16 RBC 4.30 M/mm3 (3.60-5.2) 04/26/19 11:16 Hgb 12.0 GM/dL (10.7-15.3) 04/26/19 11:16 Hct 37.3 % (32.4-45.2) D 04/26/19 11:16 MCV 86.9 fl (80-96) 04/26/19 11:16 MCHC 32.3 g/dl (32.0-36.0) 04/26/19 11:16 RDW 16.6 % (11.6-15.6) H 04/26/19 11:16 Plt Count 247 K/MM3 (134-434) 04/26/19 11:16 MPV 7.8 fl (7.5-11.1) 04/26/19 11:16 CMP Sodium 133 mmol/L (136-145) L 04/26/19 11:16 Potassium 3.9 mmol/L (3.5-5.1) 04/26/19 11:16 Chloride 95 mmol/L (98-107) L 04/26/19 11:16 Carbon Dioxide 25 mmol/L (21-32) 04/26/19 11:16 Anion Gap 13 MMOL/L (8-16) 04/26/19 11:16 BUN 107.0 mg/dL (7-18) H* 04/26/19 11:16 Creatinine 2.2 mg/dL (0.55-1.3) H 04/26/19 11:16 Random Glucose 110 mg/dL (74-106) H 04/26/19 11:16 Calcium 9.0 mg/dL (8.5-10.1) 04/26/19 11:16 Total Bilirubin 0.9 mg/dL (0.2-1) 04/26/19 11:16 AST 25 U/L (15-37) 04/26/19 11:16 ALT 24 U/L (13-61) 04/26/19 11:16 Alkaline Phosphatase 106 U/L (45-117) 04/26/19 11:16 Total Protein 7.1 g/dl (6.4-8.2) 04/26/19 11:16 Albumin 3.1 g/dl (3.4-5.0) L 04/26/19 11:16 CARDIAC ENZYMES Creatine Kinase 125 U/L (26-192) 04/20/19 05:50 Troponin I 0.12 ng/ml (0.00-0.05) H 04/20/19 05:50 Current Medications Generic Name Dose Route Start Last Admin Trade Name Freq PRN Reason Stop Dose Admin Apixaban 5 mg 04/22/19 10:00 04/26/19 10:24 Eliquis - PO 5 mg BID RINA Administration Clopidogrel Bisulfate 75 mg 04/20/19 10:00 04/26/19 10:24 Plavix - PO 75 mg DAILY RINA Administration Docusate Sodium 100 mg 04/21/19 03:21 Colace - PO DAILY PRN CONSTIPATION Furosemide 80 mg 04/23/19 18:00 04/26/19 14:22 Lasix Injection - IVPUSH 80 mg BID@0600,1400 RINA Administration Levothyroxine Sodium 75 mcg 04/20/19 07:00 04/26/19 06:26 Synthroid - PO 75 mcg DAILY@0700 RINA Administration Metoprolol Succinate 75 mg 04/20/19 18:30 04/26/19 10:24 Toprol Xl - PO 75 mg DAILY RINA Administration Senna 1 tab 04/21/19 03:23 Senna - PO HS PRN CONSTIPATION Home Medications Medication Instructions Recorded Clopidogrel Bisulfate [Plavix -] 75 mg PO DAILY #30 tablet 08/02/17 Levothyroxine [Synthroid -] 75 mcg PO DAILY@0700 30 Days #30 08/02/17 tablet Furosemide [Lasix] 80 mg PO DAILY #30 tablet 10/22/18 Metoprolol Succinate [Toprol XL -] 25 mg PO TID 12/09/18 Spironolactone 25 mg PO DAILY 12/09/18 Sacubitril/Valsartan [Entresto 49 1 tab PO BID #0 tablet 12/16/18 mg-51 mg Tablet] 04/19/19 20:40 Urine - Urine Clean Catch Urine Culture - Final NO GROWTH OBTAINED ASSESSMENT AND PLAN: Patient is a 61 yo female, with PMhx of hypertension, hypercholesterolemia, CAD, [place](X2, s/p defibrillator/pacemaker and CABG), CHF, DM II, kidney stones, peripheral neuropathy, hypothyroidism, and non compliance who presented with SOB and was found to have A fib with RVR and Acute exacerbation of diastolic and Systolic CHF # Acute new onset A fib: on BB, continue eliquis. covered by insurance # Anasarca on IV lasix /po lasix , nephro on the case # Acute on chronic diastolic and systolic CHF:on IV lasix to 80 mg BID , will hold Entresto, spironolactone, cont BB . - ICD interrogation pending. possible lasix drip vs IV lasix continue for now. discussed with nephro # LIANNA on CKD: due to cardiorenal syndrome , continue diuresis, nephro consulted today # Elevated trop : no evidence of ischemia DVT PX: elliquis Visit type - Emergency Visit Emergency Visit: Yes ED Registration Date: 04/19/19 Care time: The patient presented to the Emergency Department on the above date and was hospitalized for further evaluation of their emergent condition. - New Patient This patient is new to me today: No - Critical Care Critical Care patient: No - Discharge Referral Referred to [facility] Med P.C.: No
[2019-04-27] MEDS: FUROSEMIDE 40 MG/4 ML INJECTABLE VIAL IVPUSH SCH ×2 (06:37→14:39)
[2019-04-27] MEDS: LEVOTHYROXINE NA 75 MCG TABLET (FP) PO SCH (06:37)
--- NOTE | 2019-04-27 08:48 | PN ---
Teaching Attending Note Name of Resident: Rusty Earl ATTENDING PHYSICIAN STATEMENT I saw and evaluated the patient. I reviewed the resident's note and discussed the case with the resident. I agree with the resident's findings and plan as documented. SUBJECTIVE: Patient is better, improving slowly. Vital Signs Temperature 97.5 F L 04/27/19 06:00 Pulse Rate 94 H 04/27/19 06:00 Respiratory Rate 20 04/27/19 06:00 Blood Pressure 106/58 L 04/27/19 06:00 O2 Sat by Pulse Oximetry (%) 99 04/26/19 21:00 GENERAL: The patient is awake, alert, and oriented, in no acute distress. HEAD: Normal with no signs of trauma. EYES: PERRL, extraocular movements intact, sclera anicteric, conjunctiva clear. . ENT: Ears normal, oropharynx clear without exudates, moist mucous membranes. NECK: Trachea midline, full range of motion, supple. LUNGS:decreased Breath sounds bl, no wheezes, no crackles, no accessory muscle use. HEART: Regular rate and rhythm, S1, S2 positive, brennen 3/6 , no rub or gallop. ABDOMEN: Soft, NT, nondistended, normoactive bowel sounds, no guarding, no rebound, no hepatosplenomegaly, no masses. EXTREMITIES: 2+ pulses, warm, well-perfused, positive for anasarca generalized , 3+ edema of lower extremities NEUROLOGICAL: Cranial nerves II through XII grossly intact. Normal speech, gait not observed. PSYCH: flat affect SKIN: Warm, dry, normal turgor, no rashes or lesions noted CBCD WBC 5.6 K/mm3 (4.0-10.0) 04/26/19 11:16 RBC 4.30 M/mm3 (3.60-5.2) 04/26/19 11:16 Hgb 12.0 GM/dL (10.7-15.3) 04/26/19 11:16 Hct 37.3 % (32.4-45.2) D 04/26/19 11:16 MCV 86.9 fl (80-96) 04/26/19 11:16 MCHC 32.3 g/dl (32.0-36.0) 04/26/19 11:16 RDW 16.6 % (11.6-15.6) H 04/26/19 11:16 Plt Count 247 K/MM3 (134-434) 04/26/19 11:16 MPV 7.8 fl (7.5-11.1) 04/26/19 11:16 CMP Sodium 133 mmol/L (136-145) L 04/26/19 11:16 Potassium 3.9 mmol/L (3.5-5.1) 04/26/19 11:16 Chloride 95 mmol/L (98-107) L 04/26/19 11:16 Carbon Dioxide 25 mmol/L (21-32) 04/26/19 11:16 Anion Gap 13 MMOL/L (8-16) 04/26/19 11:16 BUN 107.0 mg/dL (7-18) H* 04/26/19 11:16 Creatinine 2.2 mg/dL (0.55-1.3) H 04/26/19 11:16 Random Glucose 110 mg/dL (74-106) H 04/26/19 11:16 Calcium 9.0 mg/dL (8.5-10.1) 04/26/19 11:16 Total Bilirubin 0.9 mg/dL (0.2-1) 04/26/19 11:16 AST 25 U/L (15-37) 04/26/19 11:16 ALT 24 U/L (13-61) 04/26/19 11:16 Alkaline Phosphatase 106 U/L (45-117) 04/26/19 11:16 Total Protein 7.1 g/dl (6.4-8.2) 04/26/19 11:16 Albumin 3.1 g/dl (3.4-5.0) L 04/26/19 11:16 CARDIAC ENZYMES Creatine Kinase 125 U/L (26-192) 04/20/19 05:50 Troponin I 0.12 ng/ml (0.00-0.05) H 04/20/19 05:50 Current Medications Generic Name Dose Route Start Last Admin Trade Name Freq PRN Reason Stop Dose Admin Apixaban 5 mg 04/22/19 10:00 04/27/19 09:36 Eliquis - PO 5 mg BID RINA Administration Clopidogrel Bisulfate 75 mg 04/20/19 10:00 04/27/19 09:36 Plavix - PO 75 mg DAILY RINA Administration Docusate Sodium 100 mg 04/21/19 03:21 Colace - PO DAILY PRN CONSTIPATION Furosemide 80 mg 04/23/19 18:00 04/27/19 14:39 Lasix Injection - IVPUSH 80 mg BID@0600,1400 RINA Administration Levothyroxine Sodium 75 mcg 04/20/19 07:00 04/27/19 06:37 Synthroid - PO 75 mcg DAILY@0700 RINA Administration Metoprolol Succinate 75 mg 04/20/19 18:30 04/27/19 09:36 Toprol Xl - PO 75 mg DAILY RINA Administration Senna 1 tab 04/21/19 03:23 Senna - PO HS PRN CONSTIPATION Medication Instructions Recorded Clopidogrel Bisulfate [Plavix -] 75 mg PO DAILY #30 tablet 08/02/17 Levothyroxine [Synthroid -] 75 mcg PO DAILY@0700 30 Days #30 08/02/17 tablet Furosemide [Lasix] 80 mg PO DAILY #30 tablet 10/22/18 Metoprolol Succinate [Toprol XL -] 25 mg PO TID 12/09/18 Spironolactone 25 mg PO DAILY 12/09/18 Sacubitril/Valsartan [Entresto 49 1 tab PO BID #0 tablet 12/16/18 mg-51 mg Tablet] Microbiology 04/19/19 20:40 Urine - Urine Clean Catch Urine Culture - Final NO GROWTH OBTAINED ASSESSMENT AND PLAN: Patient is a 61 yo female, with PMhx of hypertension, HLD, CAD, [place] (X2, s/p defibrillator/pacemaker and CABG), CHF, DM II, kidney stones, peripheral neuropathy, hypothyroidism, and non compliance who presented with SOB and was found to have A fib with RVR and Acute exacerbation of diastolic and Systolic CHF # Acute new onset A fib: on BB, continue eliquis. # Anasarca on IV lasix continue , nephro on the case and appreciated # Acute on chronic diastolic and systolic CHF:on IV lasix to 80 mg BID , will hold Entresto, spironolactone, cont BB . - ICD interrogation pending. # LIANNA on CKD: due to cardiorenal syndrome , continue diuresis, nephro on the case # Elevated trop : no evidence of ischemia DVT PX: elliquis
[2019-04-27] MEDS: CLOPIDOGREL BISULFATE 75 MG TABLET (FP) PO SCH (09:36)
[2019-04-27] MEDS: metoPROLOL SUCCINATE 25 MG TAB.SR.24H (FP) PO SCH (09:36)
[2019-04-27] MEDS: APIXABAN 5 MG TABLET PO SCH ×2 (09:36→22:25)
--- NOTE | 2019-04-27 12:08 | PN ---
Physical Exam: SUBJECTIVE: Patient seen and examined There is improvement today. She still has severe pain throughout. Appears less volume overloaded. She moved her bowels and has urinated but has difficulty resting due to pain. Denies f/c/n/v/d/chest pain. OBJECTIVE: Vital Signs Period Temp Pulse Resp BP Sys/Santoro Pulse Ox Last 24 Hr 96.8 F-98.1 F 92-102 20-22 89-121/42-76 99 GENERAL: The patient is awake, alert, and fully oriented. Mild distress due to pain. EYES: PERRL, extraocular movements intact, sclera anicteric ENT: oropharynx clear without exudates, moist mucous membranes. NECK: full range of motion, supple. LUNGS: Breath sounds equal, clear to auscultation bilaterally, no wheezes, mild crackles, HEART: Regular rate and irregular rhythm, S1, S2 without murmur, rub or gallop. ABDOMEN: Soft but tender, distended, normoactive bowel sounds, no guarding, no rebound EXTREMITIES: UE: RUE 2+ edema, pitting LE: 2+ pulses, warm, Edema 2+ pitting b/l, Small pockets of fluid are developing under her 1st and 2nd toes b/l- likely signs of fluid overload worsening- improved from sunday NEUROLOGICAL: Cranial nerves II through XII grossly intact. PSYCH: Normal mood, normal affect. SKIN: Warm, dry, normal turgor, Laboratory Results - last 24 hr 04/27/19 04/27/19 04/27/19 05:00 05:00 06:10 Sodium Potassium Chloride Carbon Dioxide Anion Gap BUN Creatinine Est GFR (CKD-EPI)AfAm Est GFR (CKD-EPI)NonAf POC Glucometer 98 Random Glucose Calcium Total Bilirubin AST ALT Alkaline Phosphatase Total Protein Albumin Ur Random Creatinine 34.0 Ur Random Sodium 42 Ur Random Potassium 25.0 Ur Random Chloride 60 L Active Medications Generic Name Dose Route Start Last Admin Trade Name Freq PRN Reason Stop Dose Admin Apixaban 5 mg 04/22/19 10:00 04/27/19 09:36 Eliquis - PO 5 mg BID RINA Administration Clopidogrel Bisulfate 75 mg 04/20/19 10:00 04/27/19 09:36 Plavix - PO 75 mg DAILY RINA Administration Docusate Sodium 100 mg 04/21/19 03:21 Colace - PO DAILY PRN CONSTIPATION Furosemide 80 mg 04/23/19 18:00 04/27/19 06:37 Lasix Injection - IVPUSH 80 mg BID@0600,1400 RINA Administration Levothyroxine Sodium 75 mcg 04/20/19 07:00 04/27/19 06:37 Synthroid - PO 75 mcg DAILY@0700 RINA Administration Metoprolol Succinate 75 mg 04/20/19 18:30 04/27/19 09:36 Toprol Xl - PO 75 mg DAILY RINA Administration Senna 1 tab 04/21/19 03:23 Senna - PO HS PRN CONSTIPATION ASSESSMENT/PLAN: 63 y/o F, pmh of Severe systolic HFrEF s/p ICD, A. Fib, HTN, HLD, CAD s/p CABG and PCI, s/p NSTEMI, HTN, DM, COPD(home 5L), hypothyroidism, presents with worsening abdominal pain, and distention of 3 day duration is admitted for acute CHF exacerbation and A-fib w/ RVR #Acute on chronic systolic CHF IV line placed IV Lasix 80 BID- monitor for improvement Hold Inotropes for now- if systolic pressures drops, consider restarting after discussing with cardio #A-fib no hx of previous A-fib cont Toprol 75 Eliquis 5 Will get ICD interrogated #RUE edema likely 2/2 to fluid overload #LIANNA on CKD likely due to cardiorenal syndrome Cre 2.2 on 04/26 BUN 107.0 on 04/26 #Hypothyroidism cont synthroid 75mcg #CAD s/p CABG cont Plavix 75 #DVT ppx on eliquis FEN PO diet sodium controlled diet monitor lytes Dispo: monitor systolic function, if BP drops, consider inotropes, cont IV lasix 80 BID, monitor Cre Visit type - Emergency Visit Emergency Visit: Yes ED Registration Date: 04/19/19 Care time: The patient presented to the Emergency Department on the above date and was hospitalized for further evaluation of their emergent condition. - New Patient This patient is new to me today: Yes Date on this admission: 04/27/19 - Critical Care Critical Care patient: No - Discharge Referral Referred to [facility] Med P.C.: No ATTENDING PHYSICIAN STATEMENT I saw and evaluated the patient. I reviewed the resident's note and discussed the case with the resident. I agree with the resident's findings and plan as documented. SUBJECTIVE: OBJECTIVE: ASSESSMENT AND PLAN:
--- NOTE | 2019-04-27 18:30 | PN ---
Progress Note, Physician Chief Complaint: Events noted Not in distress History of Present Illness: Patient was seen and examined. Awake and alert. Chart was reviewed Denies chest pain, SOB or palpitations - Current Medication List Current Medications: Active Medications Apixaban (Eliquis -) 5 mg PO BID [facility] Last Admin: 04/27/19 09:36 Dose: 5 mg Clopidogrel Bisulfate (Plavix -) 75 mg PO DAILY [facility] Last Admin: 04/27/19 09:36 Dose: 75 mg Docusate Sodium (Colace -) 100 mg PO DAILY PRN PRN Reason: CONSTIPATION Furosemide (Lasix Injection -) 80 mg IVPUSH BID@0600,1400 [facility] Last Admin: 04/27/19 14:39 Dose: 80 mg Levothyroxine Sodium (Synthroid -) 75 mcg PO DAILY@0700 [facility] Last Admin: 04/27/19 06:37 Dose: 75 mcg Metoprolol Succinate (Toprol Xl -) 75 mg PO DAILY [facility] Last Admin: 04/27/19 09:36 Dose: 75 mg Senna (Senna -) 1 tab PO HS PRN PRN Reason: CONSTIPATION - Objective Vital Signs: Vital Signs Temperature 98.3 F 04/27/19 13:42 Pulse Rate 102 H 04/27/19 13:42 Respiratory Rate 18 04/27/19 13:42 Blood Pressure 101/55 L 04/27/19 13:42 O2 Sat by Pulse Oximetry (%) 99 04/26/19 21:00 Eyes: Yes: PERRL HENT: Yes: Atraumatic Neck: Yes: Supple Cardiovascular: Yes: Regular Rate and Rhythm, S1, S2 Respiratory: Yes: CTA Bilaterally Gastrointestinal: Yes: Normal Bowel Sounds, Soft. No: Tenderness Edema: No Labs: CBC, BMP 04/26/19 11:16 04/26/19 11:16 Problem List - Problems (1) LIANNA (acute kidney injury) Code(s): N17.9 - ACUTE KIDNEY FAILURE, UNSPECIFIED (2) Subendocardial ischemia Code(s): I24.8 - OTHER FORMS OF ACUTE ISCHEMIC HEART DISEASE (3) CHF (congestive heart failure) Code(s): I50.9 - HEART FAILURE, UNSPECIFIED Qualifiers: Heart failure type: unspecified Heart failure chronicity: acute on chronic Qualified Code(s): I50.9 - Heart failure, unspecified (4) AICD (automatic cardioverter/defibrillator) present Code(s): Z95.810 - PRESENCE OF AUTOMATIC (IMPLANTABLE) CARDIAC DEFIBRILLATOR (5) Acute on chronic systolic and diastolic heart failure, NYHA class 3 Code(s): I50.43 - ACUTE ON CHRONIC COMBINED SYSTOLIC AND DIASTOLIC HRT FAIL (6) Anemia Code(s): D64.9 - ANEMIA, UNSPECIFIED (7) Hx of CABG Code(s): Z95.1 - PRESENCE OF AORTOCORONARY BYPASS GRAFT (8) Shortness of breath Code(s): R06.02 - SHORTNESS OF BREATH (9) Acute combined systolic and diastolic ACC/AHA stage C congestive heart failure Code(s): I50.41 - ACUTE COMBINED SYSTOLIC AND DIASTOLIC (CONGESTIVE) HRT FAIL (10) Chest pain Code(s): R07.9 - CHEST PAIN, UNSPECIFIED Qualifiers: Chest pain type: unspecified Qualified Code(s): R07.9 - Chest pain, unspecified (11) Coronary artery disease Code(s): I25.10 - ATHSCL HEART DISEASE OF [place] CORONARY ARTERY W/O ANG PCTRS (12) Depression Code(s): F32.9 - MAJOR DEPRESSIVE DISORDER, SINGLE EPISODE, UNSPECIFIED (13) Diabetes Code(s): E11.9 - TYPE 2 DIABETES MELLITUS WITHOUT COMPLICATIONS Qualifiers: Diabetes mellitus type: type 2 Diabetes mellitus intermediate insulin use: with adjunct faculty for medical terminology use Diabetes mellitus complication status: with unspecified complications (14) Hyperlipidemia Code(s): E78.5 - HYPERLIPIDEMIA, UNSPECIFIED (15) Hypertension Code(s): I10 - ESSENTIAL (PRIMARY) HYPERTENSION (16) Hypothyroidism Code(s): E03.9 - HYPOTHYROIDISM, UNSPECIFIED (17) ICD (implantable cardioverter-defibrillator) in place Code(s): Z95.810 - PRESENCE OF AUTOMATIC (IMPLANTABLE) CARDIAC DEFIBRILLATOR (18) Sleep apnea Code(s): G47.30 - SLEEP APNEA, UNSPECIFIED Assessment/Plan 1. Acute on chronic LV systolic failure (HFrEF) 2. CAD s/p CABG, PCI/stent, history of NSTEMI, angina pectoris 3. Post ICD 4. AF [id number] score of 6 5. HTN 6. Hypercholesterolemia 7. DM 8. COPD 9. Hypothyroidism PLAN: 1. Continue Metoprolol ER 75 mg QD as tolerated. Other option is to change it to Carvedilol unless rate control is an issue 2. Eliquis 5 mg BID 3. Patient is on Plavix 75 mg QD. To decide whether to continue with antiplatelet therapy in addition to DOAC for AF. 4. Entresto and Spironolactone have been held until renal function stabilizes. 5. May consider evaluation by heart failure team at [facility] (as per primary cardiology service) 6. Diuretics and monitor renal function and electrolytes Dr. العلي and Dr. Cage are to resume care on Sunday Narayan Salinas MD
[2019-04-28] MEDS: FUROSEMIDE 40 MG/4 ML INJECTABLE VIAL IVPUSH SCH ×2 (06:31→14:20)
[2019-04-28] MEDS: LEVOTHYROXINE NA 75 MCG TABLET (FP) PO SCH (06:31)
[2019-04-28 06:46] LABS: HEMATOCRIT 32.8 % (32.4-45.2); HEMOGLOBIN 10.7 GM/dL (10.7-15.3); MCH 28.1 pg (25.7-33.7); MCHC 32.7 g/dl (32.0-36.0); MEAN PLT VOLUME 7.9 fl (7.5-11.1); PLATELET COUNT 217 K/MM3 (134-434); RBC 3.82 M/mm3 (3.60-5.2); RDW 16.2 % (11.6-15.6); WHITE BLOOD COUNT 4.6 K/mm3 (4.0-10.0)
--- NOTE | 2019-04-28 10:26 | PN ---
Progress Note, Physician History of Present Illness: The patient is a 63 year old female, with a significant PMH of eevere systolic HFrEF s/p ICD, A. Fib, HTN, HLD, CAD s/p CABG and PCI, s/p NSTEMI, HTN, DM, COPD (home 5L), hypothyroidism, who presents to the ED for evaluation of worsening abdomen distention and diffuse abdominal pain x 3 days. Patient reports that she has been feeling whole body aching for a while, but it became worse over the past 3 days, along with a sharp diffuse abdominal pain, that became distended. Patient also endorses weakness and bilateral lower extremity edema, dyspnea, orthopnea. Patient previously admitted for the same complaint. She denies near or true syncope or palpitations, diet, medication indiscretion or NSAID use. Abd/pelvic CT and abd US shows significant ascites. - Current Medication List Current Medications: Active Medications Apixaban (Eliquis -) 5 mg PO BID [facility] Last Admin: 04/27/19 22:25 Dose: 5 mg Clopidogrel Bisulfate (Plavix -) 75 mg PO DAILY [facility] Last Admin: 04/27/19 09:36 Dose: 75 mg Docusate Sodium (Colace -) 100 mg PO DAILY PRN PRN Reason: CONSTIPATION Furosemide (Lasix Injection -) 80 mg IVPUSH BID@0600,1400 [facility] Last Admin: 04/28/19 06:31 Dose: 80 mg Levothyroxine Sodium (Synthroid -) 75 mcg PO DAILY@0700 [facility] Last Admin: 04/28/19 06:31 Dose: 75 mcg Metoprolol Succinate (Toprol Xl -) 75 mg PO DAILY [facility] Last Admin: 04/27/19 09:36 Dose: 75 mg Senna (Senna -) 1 tab PO HS PRN PRN Reason: CONSTIPATION - Objective Vital Signs: Vital Signs Temperature 97.8 F 04/28/19 09:00 Pulse Rate 100 H 04/28/19 09:00 Respiratory Rate 20 04/28/19 09:00 Blood Pressure 126/68 04/28/19 09:00 O2 Sat by Pulse Oximetry (%) 99 04/27/19 20:34 Eyes: Yes: WNL, Conjunctiva Clear, EOM Intact HENT: Yes: WNL, Atraumatic, Normocephalic Neck: Yes: WNL, Supple, Trachea Midline Cardiovascular: Yes: WNL, Regular Rate and Rhythm Respiratory: Yes: WNL, Regular, CTA Bilaterally Gastrointestinal: Yes: WNL, Normal Bowel Sounds Genitourinary: Yes: WNL Musculoskeletal: Yes: WNL Extremities: Yes: WNL Edema: Yes Integumentary: Yes: WNL Neurological: Yes: WNL, Alert, Oriented ...Motor Strength: WNL Psychiatric: Yes: WNL Labs: CBC, BMP 04/28/19 05:20 04/28/19 06:00 Assessment/Plan 1. Acute on chronic LV systolic failure (HFrEF) 2. CAD s/p CABG, PCI/stent, history of NSTEMI, angina pectoris 3. Post ICD 4. AF [id number] score of 6 5. HTN 6. Hypercholesterolemia 7. DM 8. COPD 9. Hypothyroidism PLAN: 1. Continue Metoprolol ER 75 mg QD as tolerated. Other option is to change it to Carvedilol unless rate control is an issue 2. Eliquis 5 mg BID 3. Patient is on Plavix 75 mg QD. To decide whether to continue with antiplatelet therapy in addition to DOAC for AF. 4. Entresto and Spironolactone have been held until renal function stabilizes. 5. May consider evaluation by heart failure team at [facility] (as per primary cardiology service) 6. Diuretics and monitor renal function and electrolytes
[2019-04-28] MEDS: metoPROLOL SUCCINATE 25 MG TAB.SR.24H (FP) PO SCH (10:38)
[2019-04-28] MEDS: APIXABAN 5 MG TABLET PO SCH ×2 (10:38→21:35)
[2019-04-28] MEDS: CLOPIDOGREL BISULFATE 75 MG TABLET (FP) PO SCH (10:38)
--- NOTE | 2019-04-28 14:53 | PN ---
Physical Exam: SUBJECTIVE: Patient seen and examined There is improvement today. She still has generalized body pain. RUE swelling has decreased. B/l leg swelling has decreased. Appears less volume overloaded. She moved her bowels and has urinated but has difficulty resting due to pain. Denies f/c/n/v/d/chest pain. OBJECTIVE: Vital Signs Period Temp Pulse Resp BP Sys/Santoro Pulse Ox Last 24 Hr 97.8 F-98.2 F 75-100 18-20 102-128/62-96 99-99 GENERAL: The patient is awake, alert, and fully oriented. Mild distress due to pain. EYES: PERRL, extraocular movements intact, sclera anicteric ENT: oropharynx clear without exudates, moist mucous membranes. NECK: full range of motion, supple. LUNGS: Breath sounds equal, clear to auscultation bilaterally, no wheezes, mild crackles, HEART: Regular rate and irregular rhythm, S1, S2 without murmur, rub or gallop. ABDOMEN: Soft but tender, distended, normoactive bowel sounds, no guarding, no rebound EXTREMITIES: UE: RUE 1+ edema, pitting- improved LE: 2+ pulses, warm, Edema 2+ pitting b/l, Small pockets of fluid are developing under her 1st and 2nd toes b/l- likely signs of fluid overload- improved today NEUROLOGICAL: Cranial nerves II through XII grossly intact. PSYCH: Normal mood, normal affect. SKIN: Warm, dry, normal turgo Laboratory Results - last 24 hr CBC,CMP WBC 4.6 K/mm3 (4.0-10.0) 04/28/19 05:20 RBC 3.82 M/mm3 (3.60-5.2) 04/28/19 05:20 Hgb 10.7 GM/dL (10.7-15.3) 04/28/19 05:20 Hct 32.8 % (32.4-45.2) 04/28/19 05:20 MCV 86.0 fl (80-96) 04/28/19 05:20 MCH 28.1 pg (25.7-33.7) 04/28/19 05:20 MCHC 32.7 g/dl (32.0-36.0) 04/28/19 05:20 RDW 16.2 % (11.6-15.6) H 12/09/19 05:20 Plt Count 217 K/MM3 (134-434) 04/28/19 05:20 MPV 7.9 fl (7.5-11.1) 04/28/19 05:20 Absolute Neuts (auto) 3.7 K/mm3 (1.5-8.0) 04/19/19 12:30 Neutrophils % 64.1 % (42.8-82.8) 04/19/19 12:30 Lymphocytes % 17.9 % (8-40) D 04/19/19 12:30 Monocytes % 17.5 % (3.8-10.2) H 04/19/19 12:30 Eosinophils % 0.0 % (0-4.5) 04/19/19 12:30 Basophils % 0.5 % (0-2.0) 04/19/19 12:30 Nucleated RBC % 1 % (0-0) H 04/19/19 12:30 Sodium 133 mmol/L (136-145) L 04/26/19 11:16 Potassium 3.9 mmol/L (3.5-5.1) 04/26/19 11:16 Chloride 95 mmol/L (98-107) L 04/26/19 11:16 Carbon Dioxide 25 mmol/L (21-32) 04/26/19 11:16 Anion Gap 13 MMOL/L (8-16) 04/26/19 11:16 BUN 107.0 mg/dL (7-18) H* 04/26/19 11:16 Creatinine 2.2 mg/dL (0.55-1.3) H 04/26/19 11:16 Est GFR (CKD-EPI)AfAm 26.39 04/26/19 11:16 Est GFR (CKD-EPI)NonAf 22.77 04/26/19 11:16 POC Glucometer 104 UNITS (80-120) 04/28/19 12:37 Random Glucose 110 mg/dL (74-106) H 04/26/19 11:16 Calcium 9.0 mg/dL (8.5-10.1) 04/26/19 11:16 Phosphorus 6.6 mg/dL (2.5-4.9) H 04/24/19 06:30 Magnesium 2.4 mg/dL (1.8-2.4) 04/24/19 06:30 Total Bilirubin 0.9 mg/dL (0.2-1) 04/26/19 11:16 AST 25 U/L (15-37) 04/26/19 11:16 ALT 24 U/L (13-61) 04/26/19 11:16 Alkaline Phosphatase 106 U/L (45-117) 04/26/19 11:16 Creatine Kinase 125 U/L (26-192) 04/20/19 05:50 Creatine Kinase Index 2.9 % (0.0-5.0) 04/19/19 20:40 CK-MB (CK-2) 4.4 ng/mL (0.5-3.6) H 04/19/19 20:40 Troponin I 0.12 ng/ml (0.00-0.05) H 04/20/19 05:50 B-Natriuretic Peptide 6552.5 pg/ml (5-125) H 04/19/19 12:30 Total Protein 7.1 g/dl (6.4-8.2) 04/26/19 11:16 Albumin 3.1 g/dl (3.4-5.0) L 04/26/19 11:16 Lipase 37 U/L (73-393) L 04/19/19 20:40 Active Medications Current Medications Apixaban (Eliquis -) 5 mg PO BID [facility] Last Admin: 04/28/19 10:38 Dose: 5 mg Clopidogrel Bisulfate (Plavix -) 75 mg PO DAILY [facility] Last Admin: 04/28/19 10:38 Dose: 75 mg Docusate Sodium (Colace -) 100 mg PO DAILY PRN PRN Reason: CONSTIPATION Furosemide (Lasix Injection -) 80 mg IVPUSH BID@0600,1400 [facility] Last Admin: 04/28/19 14:20 Dose: 80 mg Levothyroxine Sodium (Synthroid -) 75 mcg PO DAILY@0700 [facility] Last Admin: 04/28/19 06:31 Dose: 75 mcg Metoprolol Succinate (Toprol Xl -) 75 mg PO DAILY [facility] Last Admin: 04/28/19 10:38 Dose: 75 mg Senna (Senna -) 1 tab PO HS PRN PRN Reason: CONSTIPATION Home Medications Medication Instructions Recorded Clopidogrel Bisulfate [Plavix -] 75 mg PO DAILY #30 tablet 08/02/17 Levothyroxine [Synthroid -] 75 mcg PO DAILY@0700 30 Days #30 08/02/17 tablet Furosemide [Lasix] 80 mg PO DAILY #30 tablet 10/22/18 Metoprolol Succinate [Toprol XL -] 25 mg PO TID 12/09/18 Spironolactone 25 mg PO DAILY 12/09/18 Sacubitril/Valsartan [Entresto 49 1 tab PO BID #0 tablet 12/16/18 mg-51 mg Tablet] Microbiology 04/19/19 20:40 Urine - Urine Clean Catch Urine Culture - Final NO GROWTH OBTAINED ASSESSMENT/PLAN: 63 y/o F, pmh of Severe systolic HFrEF s/p ICD, A. Fib, HTN, HLD, CAD s/p CABG and PCI, s/p NSTEMI, HTN, DM, COPD(home 5L), hypothyroidism, presents with worsening abdominal pain, and distention of 3 day duration is admitted for acute CHF exacerbation and A-fib w/ RVR #Acute on chronic systolic CHF IV line placed IV Lasix 80 BID- monitor for improvement Hold Inotropes for now- if systolic pressures drops, consider restarting after discussing with cardio Cardio recom eval at [facility] by heart failure team, if condition does not improve Cardio consult appreciated #A-fib no hx of previous A-fib cont Toprol 75, can consider Carvedilol unless rate control is an issue Eliquis 5 Will get ICD interrogated #RUE edema likely 2/2 to fluid overload #LIANNA on CKD likely due to cardiorenal syndrome #Hypothyroidism cont synthroid 75mcg #CAD s/p CABG cont Plavix 75 #DVT ppx on eliquis FEN PO diet sodium controlled diet monitor lytes Dispo: if BP drops, consider inotropes, cont IV lasix 80 BID, refused blood work - obtain blood work Visit type - Emergency Visit Emergency Visit: Yes ED Registration Date: 04/19/19 Care time: The patient presented to the Emergency Department on the above date and was hospitalized for further evaluation of their emergent condition. - New Patient This patient is new to me today: Yes Date on this admission: 05/02/19 - Critical Care Critical Care patient: No - Discharge Referral Referred to [facility] Med [facility] No ATTENDING PHYSICIAN STATEMENT I saw and evaluated the patient. I reviewed the resident's note and discussed the case with the resident. I agree with the resident's findings and plan as documented. SUBJECTIVE: OBJECTIVE: ASSESSMENT AND PLAN:
--- NOTE | 2019-04-28 15:42 | PN ---
Progress Note, Physician History of Present Illness: Pt seen and examined at bedside. She is awake and alert. She feels that her edema is improving. - Current Medication List Current Medications: Active Medications Apixaban (Eliquis -) 5 mg PO BID [facility] Last Admin: 04/28/19 10:38 Dose: 5 mg Clopidogrel Bisulfate (Plavix -) 75 mg PO DAILY [facility] Last Admin: 04/28/19 10:38 Dose: 75 mg Docusate Sodium (Colace -) 100 mg PO DAILY PRN PRN Reason: CONSTIPATION Furosemide (Lasix Injection -) 80 mg IVPUSH BID@0600,1400 [facility] Last Admin: 04/28/19 14:20 Dose: 80 mg Levothyroxine Sodium (Synthroid -) 75 mcg PO DAILY@0700 [facility] Last Admin: 04/28/19 06:31 Dose: 75 mcg Metoprolol Succinate (Toprol Xl -) 75 mg PO DAILY [facility] Last Admin: 04/28/19 10:38 Dose: 75 mg Senna (Senna -) 1 tab PO HS PRN PRN Reason: CONSTIPATION - Objective Vital Signs: Vital Signs Temperature 98 F 04/28/19 14:00 Pulse Rate 75 04/28/19 14:00 Respiratory Rate 20 04/28/19 14:00 Blood Pressure 102/62 04/28/19 14:00 O2 Sat by Pulse Oximetry (%) 99 04/28/19 09:00 Constitutional: Yes: Calm Eyes: Yes: Conjunctiva Clear HENT: Yes: Atraumatic Neck: Yes: Supple Cardiovascular: Yes: S1, S2 Respiratory: Yes: CTA Bilaterally Gastrointestinal: Yes: Normal Bowel Sounds, Soft Genitourinary: Yes: WNL Musculoskeletal: Yes: WNL Edema: Yes Edema: LLE: 2+, RLE: 2+ Neurological: Yes: Oriented Psychiatric: Yes: Oriented Labs: CBC, BMP 04/28/19 05:20 04/28/19 06:00 Problem List - Problems (1) LIANNA (acute kidney injury) Code(s): N17.9 - ACUTE KIDNEY FAILURE, UNSPECIFIED (2) Rapid atrial fibrillation Code(s): I48.91 - UNSPECIFIED ATRIAL FIBRILLATION (3) CHF (congestive heart failure) Code(s): I50.9 - HEART FAILURE, UNSPECIFIED Qualifiers: Heart failure type: unspecified Heart failure chronicity: acute on chronic Qualified Code(s): I50.9 - Heart failure, unspecified (4) Anasarca Code(s): R60.1 - GENERALIZED EDEMA Assessment/Plan Current Medications Generic Name Dose Route Start Last Admin Trade Name Freq PRN Reason Stop Dose Admin Apixaban 5 mg 04/22/19 10:00 04/28/19 10:38 Eliquis - PO 5 mg BID RINA Administration Clopidogrel Bisulfate 75 mg 04/20/19 10:00 04/28/19 10:38 Plavix - PO 75 mg DAILY RINA Administration Docusate Sodium 100 mg 04/21/19 03:21 Colace - PO DAILY PRN CONSTIPATION Furosemide 80 mg 04/23/19 18:00 04/28/19 14:20 Lasix Injection - IVPUSH 80 mg BID@0600,1400 R[facility] Administration Levothyroxine Sodium 75 mcg 04/20/19 07:00 04/28/19 06:31 Synthroid - PO 75 mcg DAILY@0700 [facility] Administration Metoprolol Succinate 75 mg 04/20/19 18:30 04/28/19 10:38 Toprol Xl - PO 75 mg DAILY [facility] Administration Senna 1 tab 04/21/19 03:23 Senna - PO HS PRN CONSTIPATION Impression 1. LIANNA 2. CHF 3. volume overload 4. HTN 5. HLD 6. DM 7. CAD 8. COPD 9. active smoker 10. anasarca 11. hypotension 12. hx of positive danielle Plan - check bmp - cont lasix - volume status is improving - monitor renal function - compliance as outpt remains a problem - will need rheum eval for pos danielle - check daily weights
--- NOTE | 2019-04-28 16:23 | PN ---
Teaching Attending Note Name of Resident: Rusty Earl ATTENDING PHYSICIAN STATEMENT I saw and evaluated the patient. I reviewed the resident's note and discussed the case with the resident. I agree with the resident's findings and plan as documented. SUBJECTIVE: Patient is feeling better with no acute distress, feels better , sitting on the chair. Vital Signs Temperature 98 F 04/28/19 14:00 Pulse Rate 75 04/28/19 14:00 Respiratory Rate 20 04/28/19 14:00 Blood Pressure 102/62 04/28/19 14:00 O2 Sat by Pulse Oximetry (%) 99 04/28/19 09:00 GENERAL: The patient is awake, alert, and oriented, in no acute distress. HEAD: Normal with no signs of trauma. EYES: PERRL, EOMI, sclera anicteric, conjunctiva clear. . ENT: Ears normal, oropharynx clear without exudates, moist mucous membranes. NECK: Trachea midline, full range of motion, supple. LUNGS:decreased Breath sounds bl, no wheezes, no crackles, no accessory muscle use. HEART: Regular rate and rhythm, S1, S2 positive, brennen 3/6 , no rub or gallop. ABDOMEN: Soft, NT, mildly distended due to having anasarca , normoactive bowel sounds, no guarding, no rebound, no hepatosplenomegaly, no masses. EXTREMITIES: 2+ pulses, warm, well-perfused, positive for anasarca generalized , 3+ edema of lower extremities NEUROLOGICAL: Cranial nerves II through XII grossly intact. Normal speech, gait not observed. PSYCH: flat affect SKIN: Warm, dry, normal turgor, no rashes or lesions noted CBCD WBC 4.6 K/mm3 (4.0-10.0) 04/28/19 05:20 RBC 3.82 M/mm3 (3.60-5.2) 04/28/19 05:20 Hgb 10.7 GM/dL (10.7-15.3) 04/28/19 05:20 Hct 32.8 % (32.4-45.2) 04/28/19 05:20 MCV 86.0 fl (80-96) 04/28/19 05:20 MCHC 32.7 g/dl (32.0-36.0) 04/28/19 05:20 RDW 16.2 % (11.6-15.6) H 04/28/19 05:20 Plt Count 217 K/MM3 (134-434) 04/28/19 05:20 MPV 7.9 fl (7.5-11.1) 04/28/19 05:20 CMP Sodium 133 mmol/L (136-145) L 04/26/19 11:16 Potassium 3.9 mmol/L (3.5-5.1) 04/26/19 11:16 Chloride 95 mmol/L (98-107) L 04/26/19 11:16 Carbon Dioxide 25 mmol/L (21-32) 04/26/19 11:16 Anion Gap 13 MMOL/L (8-16) 04/26/19 11:16 BUN 107.0 mg/dL (7-18) H* 04/26/19 11:16 Creatinine 2.2 mg/dL (0.55-1.3) H 04/26/19 11:16 Random Glucose 110 mg/dL (74-106) H 04/26/19 11:16 Calcium 9.0 mg/dL (8.5-10.1) 04/26/19 11:16 Total Bilirubin 0.9 mg/dL (0.2-1) 04/26/19 11:16 AST 25 U/L (15-37) 04/26/19 11:16 ALT 24 U/L (13-61) 04/26/19 11:16 Alkaline Phosphatase 106 U/L (45-117) 04/26/19 11:16 Total Protein 7.1 g/dl (6.4-8.2) 04/26/19 11:16 Albumin 3.1 g/dl (3.4-5.0) L 04/26/19 11:16 CARDIAC ENZYMES Creatine Kinase 125 U/L (26-192) 04/20/19 05:50 Troponin I 0.12 ng/ml (0.00-0.05) H 04/20/19 05:50 Current Medications Generic Name Dose Route Start Last Admin Trade Name Freq PRN Reason Stop Dose Admin Apixaban 5 mg 04/22/19 10:00 04/27/19 09:36 Eliquis - PO 5 mg BID RINA Administration Clopidogrel Bisulfate 75 mg 04/20/19 10:00 04/27/19 09:36 Plavix - PO 75 mg DAILY RINA Administration Docusate Sodium 100 mg 04/21/19 03:21 Colace - PO DAILY PRN CONSTIPATION Furosemide 80 mg 04/23/19 18:00 04/27/19 14:39 Lasix Injection - IVPUSH 80 mg BID@0600,1400 R[facility] Administration Levothyroxine Sodium 75 mcg 04/20/19 07:00 04/27/19 06:37 Synthroid - PO 75 mcg DAILY@0700 RINA Administration Metoprolol Succinate 75 mg 04/20/19 18:30 04/27/19 09:36 Toprol Xl - PO 75 mg DAILY RINA Administration Senna 1 tab 04/21/19 03:23 Senna - PO HS PRN CONSTIPATION Medication Instructions Recorded Clopidogrel Bisulfate [Plavix -] 75 mg PO DAILY #30 tablet 08/02/17 Levothyroxine [Synthroid -] 75 mcg PO DAILY@0700 30 Days #30 08/02/17 tablet Furosemide [Lasix] 80 mg PO DAILY #30 tablet 10/22/18 Metoprolol Succinate [Toprol XL -] 25 mg PO TID 12/09/18 Spironolactone 25 mg PO DAILY 12/09/18 Sacubitril/Valsartan [Entresto 49 1 tab PO BID #0 tablet 12/16/18 mg-51 mg Tablet] Microbiology 04/19/19 20:40 Urine - Urine Clean Catch Urine Culture - Final NO GROWTH OBTAINED Laboratory Tests 07/09/16 07/10/16 07/10/16 13:00 00:43 06:45 Potassium 2.9 L* BUN 18 D 21 H Creatinine 0.9 0.8 Ammonia 52.96 H 07/11/16 04/19/19 04/20/19 05:35 12:30 05:50 Potassium 3.2 L BUN 30 H D Creatinine 1.4 H D 2.2 H 2.4 H Ammonia 04/22/19 04/23/19 04/24/19 10:00 06:10 06:30 Potassium BUN Creatinine 3.4 H 3.4 H 3.5 H Ammonia 04/25/19 04/26/19 05:25 11:16 Potassium BUN Creatinine 3.0 H [address] scan of abdomen and pelvis ASSESSMENT AND PLAN: Patient is a 61 yo female, with PMhx of hypertension, HLD, CAD, [place] (X2, s/p defibrillator/pacemaker and CABG), CHF, DM II, kidney stones, peripheral neuropathy, hypothyroidism, and non compliance who presented with SOB and was found to have A fib with RVR and Acute exacerbation of diastolic and Systolic CHF # Acute new onset A fib: with [id number] score of 6 , on BB, continue eliquis. #Hx of CAD s/p CABG, PCI/stent, On palvix continue # Anasarca on IV lasix 80mg IV bid continue, patient is slightely better today , will continue to monitor , nephro on the case and appreciated # Acute on chronic diastolic and systolic CHF:on IV lasix to 80 mg BID continue , will hold Entresto, spironolactone, cont BB . - ICD interrogation ,most likely for this afternoon # LIANNA on CKD: due to cardiorenal syndrome , continue diuresing the patient, nephro on the case # Elevated trop : no evidence of ischemia #Hx of HTN/HLD continue with lasix for now, BB # Hx of COPD/Hypothyroidism continue home meds DVT PX: luanne
[2019-04-29] MEDS: FUROSEMIDE 40 MG/4 ML INJECTABLE VIAL IVPUSH SCH (06:51)
[2019-04-29] MEDS: LEVOTHYROXINE NA 75 MCG TABLET (FP) PO SCH (06:51)
[2019-04-29 07:11] LABS: HEMATOCRIT 31.6 % (32.4-45.2); HEMOGLOBIN 10.1 GM/dL (10.7-15.3); MCH 27.6 pg (25.7-33.7); MEAN CELL VOLUME 86.3 fl (80-96); MEAN PLT VOLUME 7.6 fl (7.5-11.1); PLATELET COUNT 206 K/MM3 (134-434); RBC 3.67 M/mm3 (3.60-5.2); RDW 16.2 % (11.6-15.6); WHITE BLOOD COUNT 4.2 K/mm3 (4.0-10.0)
[2019-04-29 07:56] LABS: ALBUMIN 2.7 g/dl (3.4-5.0); BILIRUBIN,TOTAL 0.8 mg/dL (0.2-1); BLOOD UREA NITROGEN 79.4 mg/dL (7-18); CALCIUM 8.6 mg/dL (8.5-10.1); CREATININE 0.8 mg/dL (0.55-1.3); MAGNESIUM 1.8 mg/dL (1.8-2.4); PHOSPHOROUS 3.3 mg/dL (2.5-4.9); TOT PROT 5.7 g/dl (6.4-8.2)
[2019-04-29 08:36] LABS: POTASSIUM 2.8 mmol/L (3.5-5.1)
[2019-04-29] MEDS ORDERED: POTASSIUM CHLORIDE TABS 20 MEQ TABLET.ER (FP) PO ONE (08:45)
[2019-04-29] MEDS: KCL 10 MEQ IVPB 10 MEQ/100 ML INFUS.BAG IVPB SCH ×3 (09:09→18:03)
[2019-04-29] MEDS: metoPROLOL SUCCINATE 25 MG TAB.SR.24H (FP) PO SCH (09:12)
[2019-04-29] MEDS: APIXABAN 5 MG TABLET PO SCH ×2 (09:12→21:49)
[2019-04-29] MEDS: CLOPIDOGREL BISULFATE 75 MG TABLET (FP) PO SCH (09:12)
--- NOTE | 2019-04-29 12:14 | PN ---
Progress Note, Physician Chief Complaint: Pt A&Ox3; feels weak; no chest pain c/o legs feeling heavy and numb. History of Present Illness: 63 yo black woman with PMH of CAD s/p CABG and PCI, HTN, severe HFrEF s/p ICD, A. Fib, COPD(home 5L), DM, hypothyroidism presented to ED from home for worsening abdomen distention and diffuse abdominal pain x 3 days. Patient reports that she has been feeling whole body aching for a while, but it became worse over the past 3 days, along with a sharp diffuse abdominal pain, that became distended. Patient also endorses weakness and mild pain/swelling in both lower extremities - Current Medication List Current Medications: Active Medications Apixaban (Eliquis -) 5 mg PO BID [facility] Last Admin: 04/29/19 09:12 Dose: 5 mg Clopidogrel Bisulfate (Plavix -) 75 mg PO DAILY [facility] Last Admin: 04/29/19 09:12 Dose: 75 mg Docusate Sodium (Colace -) 100 mg PO DAILY PRN PRN Reason: CONSTIPATION Furosemide (Lasix Injection -) 80 mg IVPUSH BID@0600,1400 [facility] Last Admin: 04/29/19 06:51 Dose: 80 mg Levothyroxine Sodium (Synthroid -) 75 mcg PO DAILY@0700 [facility] Last Admin: 04/29/19 06:51 Dose: 75 mcg Metoprolol Succinate (Toprol Xl -) 75 mg PO DAILY [facility] Last Admin: 04/29/19 09:12 Dose: 75 mg Senna (Senna -) 1 tab PO HS PRN PRN Reason: CONSTIPATION - Objective Vital Signs: Vital Signs Temperature 97.9 F 04/29/19 10:00 Pulse Rate 90 04/29/19 10:00 Respiratory Rate 18 04/29/19 10:00 Blood Pressure 116/60 04/29/19 10:00 O2 Sat by Pulse Oximetry (%) 99 04/28/19 09:00 Constitutional: Yes: Calm Eyes: Yes: WNL HENT: Yes: WNL Labs: CBC, BMP 04/29/19 06:35 04/29/19 06:35 Problem List - Problems (1) PAF (paroxysmal atrial fibrillation) Code(s): I48.0 - PAROXYSMAL ATRIAL FIBRILLATION (2) LIANNA (acute kidney injury) Code(s): N17.9 - ACUTE KIDNEY FAILURE, UNSPECIFIED (3) AICD (automatic cardioverter/defibrillator) present Code(s): Z95.810 - PRESENCE OF AUTOMATIC (IMPLANTABLE) CARDIAC DEFIBRILLATOR (4) Acute on chronic systolic and diastolic heart failure, NYHA class 3 Code(s): I50.43 - ACUTE ON CHRONIC COMBINED SYSTOLIC AND DIASTOLIC HRT FAIL (5) Anemia Code(s): D64.9 - ANEMIA, UNSPECIFIED (6) Anxiety and depression Code(s): F41.9 - ANXIETY DISORDER, UNSPECIFIED; F32.9 - MAJOR DEPRESSIVE DISORDER, SINGLE EPISODE, UNSPECIFIED (7) Hx of CABG Code(s): Z95.1 - PRESENCE OF AORTOCORONARY BYPASS GRAFT (8) Hypokalemia Code(s): E87.6 - HYPOKALEMIA (9) Noncompliance with therapeutic plan Code(s): Z91.11 - PATIENT'S NONCOMPLIANCE WITH DIETARY REGIMEN (10) Overweight Code(s): E66.3 - OVERWEIGHT (11) Smokes cigarettes Code(s): F17.210 - NICOTINE DEPENDENCE, CIGARETTES, UNCOMPLICATED (12) Hyperlipidemia Code(s): E78.5 - HYPERLIPIDEMIA, UNSPECIFIED (13) Hypertension Code(s): I10 - ESSENTIAL (PRIMARY) HYPERTENSION (14) ICD (implantable cardioverter-defibrillator) in place Code(s): Z95.810 - PRESENCE OF AUTOMATIC (IMPLANTABLE) CARDIAC DEFIBRILLATOR (15) Lower extremity edema Code(s): R60.0 - LOCALIZED EDEMA (16) NSVT (nonsustained ventricular tachycardia) Code(s): I47.2 - VENTRICULAR TACHYCARDIA (17) Peripheral neuropathy Code(s): G62.9 - POLYNEUROPATHY, UNSPECIFIED Qualifiers: Peripheral neuropathy type: polyneuropathy, unspecified Qualified Code(s): G62.9 - Polyneuropathy, unspecified (18) Sleep apnea Code(s): G47.30 - SLEEP APNEA, UNSPECIFIED (19) Sphincter of Oddi dysfunction Code(s): K83.4 - SPASM OF SPHINCTER OF ODDI (20) Status post THR (total hip replacement) Code(s): Z96.649 - PRESENCE OF UNSPECIFIED ARTIFICIAL HIP JOINT
[2019-04-29] MEDS ORDERED: LISINOPRIL 5 MG TABLET (FP) PO ONE (12:21)
--- NOTE | 2019-04-29 12:23 | PN ---
Progress Note, Physician Chief Complaint: Pt A&Ox3; feels purning pain in her feet. No chest pain or dyspnea. History of Present Illness: 63 yo black woman with PMH of CAD s/p CABG and PCI, HTN, severe HFrEF s/p ICD, A. Fib, COPD(home 5L), DM, hypothyroidism presented to ED from home for worsening abdomen distention and diffuse abdominal pain x 3 days. Patient reports that she has been feeling whole body aching for a while, but it became worse over the past 3 days, along with a sharp diffuse abdominal pain, that became distended. Patient also endorses weakness and mild pain/swelling in both lower extremities - Current Medication List Current Medications: Active Medications Apixaban (Eliquis -) 5 mg PO BID [facility] Last Admin: 04/29/19 09:12 Dose: 5 mg Clopidogrel Bisulfate (Plavix -) 75 mg PO DAILY [facility] Last Admin: 04/29/19 09:12 Dose: 75 mg Docusate Sodium (Colace -) 100 mg PO DAILY PRN PRN Reason: CONSTIPATION Furosemide (Lasix Injection -) 40 mg IVPUSH BID@0600,1400 [facility] Levothyroxine Sodium (Synthroid -) 75 mcg PO DAILY@0700 [facility] Last Admin: 04/29/19 06:51 Dose: 75 mcg Lisinopril (Prinivil) 2.5 mg PO DAILY [facility] Metoprolol Succinate (Toprol Xl -) 75 mg PO DAILY [facility] Last Admin: 04/29/19 09:12 Dose: 75 mg Senna (Senna -) 1 tab PO HS PRN PRN Reason: CONSTIPATION - Objective Vital Signs: Vital Signs Temperature 97.9 F 04/29/19 10:00 Pulse Rate 90 04/29/19 10:00 Respiratory Rate 18 04/29/19 10:00 Blood Pressure 116/60 04/29/19 10:00 O2 Sat by Pulse Oximetry (%) 99 04/28/19 09:00 Constitutional: Yes: Calm, Obese Eyes: Yes: WNL HENT: Yes: WNL Respiratory: Yes: Regular Gastrointestinal: Yes: Soft, Abdomen, Obese ...Rectal Exam: Yes: Deferred Genitourinary: No: Anuria Breast(s): Yes: WNL Musculoskeletal: Yes: Joint Stiffness, Muscle Weakness Extremities: Yes: Cool Edema: Yes Edema: LLE: 1+, RLE: 1+ Peripheral Pulses WNL: No Peripheral Pulses: Left Doralis Pedis: 1+, Right Dorsalis Pedis: 1+ Integumentary: Yes: WNL Neurological: Yes: Alert, Oriented, Paresthesia, Weakness Psychiatric: Yes: Alert, Oriented Labs: CBC, BMP 04/29/19 06:35 04/29/19 06:35 Abnormal Lab Results 05/01/19 05/01/19 05:20 05:20 WBC 15.2 H Chloride 97 L Carbon Dioxide 35 H Anion Gap 7 L BUN 65.5 H Magnesium 1.5 L Total Bilirubin 1.2 H Albumin 2.8 L - ....Imaging Chest X-ray: Image Reviewed EKG: Image Reviewed Problem List - Problems (1) PAF (paroxysmal atrial fibrillation) Assessment/Plan: On metoprolol ER for HR control (and systolic LV dysfunction). On apixaban for anticoagulation. Code(s): I48.0 - PAROXYSMAL ATRIAL FIBRILLATION (2) LIANNA (acute kidney injury) Code(s): N17.9 - ACUTE KIDNEY FAILURE, UNSPECIFIED (3) AICD (automatic cardioverter/defibrillator) present Code(s): Z95.810 - PRESENCE OF AUTOMATIC (IMPLANTABLE) CARDIAC DEFIBRILLATOR (4) Acute on chronic systolic and diastolic heart failure, NYHA class 3 Assessment/Plan: Restart lisinorpil (2.5 mg initially) qd. On metoprolol ER. Decrease furosemide (clinically improving; increasing BUN/Cr). Plan to restart spironolactone (severely reduced LVEF; hypokalemia). F/u BUn/Cr, electrolytes, daily weight, Is and Os, BP and HR. Code(s): I50.43 - ACUTE ON CHRONIC COMBINED SYSTOLIC AND DIASTOLIC HRT FAIL (5) Anemia Code(s): D64.9 - ANEMIA, UNSPECIFIED (6) Anxiety and depression Code(s): F41.9 - ANXIETY DISORDER, UNSPECIFIED; F32.9 - MAJOR DEPRESSIVE DISORDER, SINGLE EPISODE, UNSPECIFIED (7) Hx of CABG Code(s): Z95.1 - PRESENCE OF AORTOCORONARY BYPASS GRAFT (8) Hypokalemia Code(s): E87.6 - HYPOKALEMIA (9) Noncompliance with therapeutic plan Code(s): Z91.11 - PATIENT'S NONCOMPLIANCE WITH DIETARY REGIMEN (10) Overweight Code(s): E66.3 - OVERWEIGHT (11) Smokes cigarettes Code(s): F17.210 - NICOTINE DEPENDENCE, CIGARETTES, UNCOMPLICATED (12) Hyperlipidemia Code(s): E78.5 - HYPERLIPIDEMIA, UNSPECIFIED (13) Hypertension Code(s): I10 - ESSENTIAL (PRIMARY) HYPERTENSION (14) ICD (implantable cardioverter-defibrillator) in place Code(s): Z95.810 - PRESENCE OF AUTOMATIC (IMPLANTABLE) CARDIAC DEFIBRILLATOR (15) Lower extremity edema Code(s): R60.0 - LOCALIZED EDEMA (16) NSVT (nonsustained ventricular tachycardia) Code(s): I47.2 - VENTRICULAR TACHYCARDIA (17) Peripheral neuropathy Code(s): G62.9 - POLYNEUROPATHY, UNSPECIFIED Qualifiers: Peripheral neuropathy type: polyneuropathy, unspecified Qualified Code(s): G62.9 - Polyneuropathy, unspecified (18) Sleep apnea Code(s): G47.30 - SLEEP APNEA, UNSPECIFIED (19) Sphincter of Oddi dysfunction Code(s): K83.4 - SPASM OF SPHINCTER OF ODDI (20) Status post THR (total hip replacement) Code(s): Z96.649 - PRESENCE OF UNSPECIFIED ARTIFICIAL HIP JOINT (21) Hypothyroidism Assessment/Plan: On synthroid; adjust dose (elevated free T4). Code(s): E03.9 - HYPOTHYROIDISM, UNSPECIFIED
--- NOTE | 2019-04-29 13:00 | PN ---
Teaching Attending Note Name of Resident: Rusty Earl ATTENDING PHYSICIAN STATEMENT I saw and evaluated the patient. I reviewed the resident's note and discussed the case with the resident. I agree with the resident's findings and plan as documented. SUBJECTIVE: Patient is feeling better with no acute distress, feels better , sitting on the chair. Vital Signs Temperature 97.9 F 04/29/19 10:00 Pulse Rate 90 04/29/19 10:00 Respiratory Rate 18 04/29/19 10:00 Blood Pressure 116/60 04/29/19 10:00 O2 Sat by Pulse Oximetry (%) 99 04/28/19 09:00 GENERAL: The patient is awake, alert, and oriented, in no acute distress. HEAD: Normal with no signs of trauma. EYES: PERRL, EOMI, sclera anicteric, conjunctiva clear. . ENT: Ears normal, oropharynx clear without exudates, moist mucous membranes. NECK: Trachea midline, full range of motion, supple. LUNGS:decreased Breath sounds bl, no wheezes, no crackles, no accessory muscle use. HEART: Regular rate and rhythm, S1, S2 positive, brennen 3/6 , no rub or gallop. ABDOMEN: Soft, NT, comfortable , positive for anasarca , normoactive bowel sounds, no guarding, no rebound, no hepatosplenomegaly, no masses. EXTREMITIES: 2+ pulses, warm, well-perfused, positive for anasarca generalized , 3+ edema of lower extremities NEUROLOGICAL: Cranial nerves II through XII grossly intact. Normal speech, gait not observed. PSYCH: flat affect SKIN: Warm, dry, normal turgor, no rashes or lesions noted CBCD WBC 4.2 K/mm3 (4.0-10.0) 04/29/19 06:35 RBC 3.67 M/mm3 (3.60-5.2) 04/29/19 06:35 Hgb 10.1 GM/dL (10.7-15.3) L 04/29/19 06:35 Hct 31.6 % (32.4-45.2) L 04/29/19 06:35 MCV 86.3 fl (80-96) 04/29/19 06:35 MCHC 32.0 g/dl (32.0-36.0) 04/29/19 06:35 RDW 16.2 % (11.6-15.6) H 04/29/19 06:35 Plt Count 206 K/MM3 (134-434) 04/29/19 06:35 MPV 7.6 fl (7.5-11.1) 04/29/19 06:35 CMP Sodium 138 mmol/L (136-145) 04/29/19 06:35 Potassium 2.8 mmol/L (3.5-5.1) L* 04/29/19 06:35 Chloride 96 mmol/L (98-107) L 04/29/19 06:35 Carbon Dioxide 36 mmol/L (21-32) H 04/29/19 06:35 Anion Gap 7 MMOL/L (8-16) L 04/29/19 06:35 BUN 79.4 mg/dL (7-18) H 04/29/19 06:35 Creatinine 0.8 mg/dL (0.55-1.3) 04/29/19 06:35 Random Glucose 87 mg/dL (74-106) 04/29/19 06:35 Calcium 8.6 mg/dL (8.5-10.1) 04/29/19 06:35 Total Bilirubin 0.8 mg/dL (0.2-1) 04/29/19 06:35 AST 25 U/L (15-37) 04/29/19 06:35 ALT 25 U/L (13-61) 04/29/19 06:35 Alkaline Phosphatase 83 U/L (45-117) 04/29/19 06:35 Total Protein 5.7 g/dl (6.4-8.2) L 04/29/19 06:35 Albumin 2.7 g/dl (3.4-5.0) L 04/29/19 06:35 CARDIAC ENZYMES Creatine Kinase 125 U/L (26-192) 04/20/19 05:50 Troponin I 0.12 ng/ml (0.00-0.05) H 04/20/19 05:50 Medication Instructions Recorded Clopidogrel Bisulfate [Plavix -] 75 mg PO DAILY #30 tablet 08/02/17 Levothyroxine [Synthroid -] 75 mcg PO DAILY@0700 30 Days #30 08/02/17 tablet Furosemide [Lasix] 80 mg PO DAILY #30 tablet 10/22/18 Metoprolol Succinate [Toprol XL -] 25 mg PO TID 12/09/18 Spironolactone 25 mg PO DAILY 12/09/18 Sacubitril/Valsartan [Entresto 49 1 tab PO BID #0 tablet 12/16/18 mg-51 mg Tablet] Microbiology 04/19/19 20:40 Urine - Urine Clean Catch Urine Culture - Final NO GROWTH OBTAINED Laboratory Tests 07/09/16 07/10/16 07/10/16 13:00 00:43 06:45 Potassium 2.9 L* BUN 18 D 21 H Creatinine 0.9 0.8 Ammonia 52.96 H 07/11/16 04/19/19 04/20/19 05:35 12:30 05:50 Potassium 3.2 L BUN 30 H D Creatinine 1.4 H D 2.2 H 2.4 H Ammonia 04/22/19 04/23/19 04/24/19 10:00 06:10 06:30 Potassium BUN Creatinine 3.4 H 3.4 H 3.5 H Ammonia 04/25/19 04/26/19 05:25 11:16 Potassium BUN Creatinine 3.0 H 2.2 H Ammonia Current Medications Generic Name Dose Route Start Last Admin Trade Name Freq PRN Reason Stop Dose Admin Apixaban 5 mg 04/22/19 10:00 04/30/19 09:45 Eliquis - PO 5 mg BID RINA Administration Clopidogrel Bisulfate 75 mg 04/20/19 10:00 04/30/19 09:44 Plavix - PO 75 mg DAILY RINA Administration Docusate Sodium 100 mg 04/21/19 03:21 Colace - PO DAILY PRN CONSTIPATION Furosemide 40 mg 04/30/19 10:00 04/30/19 09:45 Lasix Injection - IVPUSH 40 mg DAILY RINA Administration Levothyroxine Sodium 75 mcg 04/20/19 07:00 04/30/19 06:48 Synthroid - PO 75 mcg DAILY@0700 [facility] Administration Lisinopril 2.5 mg 04/30/19 10:00 04/30/19 09:44 Prinivil PO 2.5 mg DAILY RINA Administration Metoprolol Succinate 75 mg 04/20/19 18:30 04/30/19 09:45 Toprol Xl - PO 75 mg DAILY RINA Administration Potassium Chloride 20 meq 04/29/19 22:00 04/30/19 09:45 K-Dur - PO 20 meq BID RINA Administration Senna 1 tab 04/21/19 03:23 Senna - PO HS PRN CONSTIPATION Spironolactone 25 mg 05/01/19 10:00 Aldactone - PO DAILY RINA Microbiology 04/19/19 20:40 Urine - Urine Clean Catch Urine Culture - Final NO GROWTH OBTAINED CT scan of abdomen and pelvis: Anasarca ASSESSMENT AND PLAN: Patient is a 61 yo female, with PMhx of hypertension, HLD, CAD, RI (X2, s/p defibrillator/pacemaker and CABG), CHF, DM II, kidney stones, peripheral neuropathy, hypothyroidism, and non compliance who presented with SOB and was found to have A fib with RVR and Acute exacerbation of diastolic and Systolic CHF # Acute new onset A fib: with [id number] score of 6 , on BB, continue eliquis. #Hx of CAD s/p CABG, PCI/stent, On palvix continue # Anasarca on IV lasix 40mg daily switched from 80mg IV bid, added aldactone 25mg , will continue to monitor , nephro on the case and appreciated , feels better today. # Acute on chronic diastolic and systolic CHF: on IV lasix 40mg IV s/p 80 mg IV BID , will hold Entresto, continue spironolactone as per cardio , cont BB . - ICD interrogation ,most likely for this afternoon # LIANNA on CKD: due to cardiorenal syndrome , continue daily diuresing as per cardio , nephro on the case as well # Elevated trop : no evidence of ischemia #Hx of HTN/HLD continue with lasix for now, BB # Hx of COPD/Hypothyroidism continue home meds DVT PX: elliquis continue to monitor, CMps , renal function
[2019-04-29] MEDS ORDERED: FUROSEMIDE 40 MG/4 ML INJECTABLE VIAL IVPUSH SCH (14:00)
--- NOTE | 2019-04-29 14:53 | PN ---
Physical Exam: SUBJECTIVE: Patient seen and examined There is improvement today. She still has generalized body pain. RUE swelling has decreased. B/l leg swelling has decreased. Appears less volume overloaded. She moved her bowels and has urinated but has difficulty resting due to pain. Denies f/c/n/v/d/chest pain. OBJECTIVE: Vital Signs Period Temp Pulse Resp BP Sys/Santoro Pulse Ox Last 24 Hr 97.9 F-98.4 F 83-93 18-20 90-127/53-76 99 GENERAL: The patient is awake, alert, and fully oriented. Mild distress due to pain. EYES: PERRL, extraocular movements intact, sclera anicteric ENT: oropharynx clear without exudates, moist mucous membranes. NECK: full range of motion, supple. LUNGS: Breath sounds equal, clear to auscultation bilaterally, no wheezes, mild crackles, HEART: Regular rate and irregular rhythm, S1, S2 without murmur, rub or gallop. ABDOMEN: Soft but tender, distended, normoactive bowel sounds, no guarding, no rebound EXTREMITIES: UE: RUE 1+ edema, pitting- improved LE: 2+ pulses, warm, Edema 2+ pitting b/l, Small pockets of fluid are developing under her 1st and 2nd toes b/l- likely signs of fluid overload- improved today NEUROLOGICAL: Cranial nerves II through XII grossly intact. PSYCH: Normal mood, normal affect. SKIN: Warm, dry, normal turgo Laboratory Results - last 24 hr CBC,CMP WBC 4.2 K/mm3 (4.0-10.0) 04/29/19 06:35 RBC 3.67 M/mm3 (3.60-5.2) 04/29/19 06:35 Hgb 10.1 GM/dL (10.7-15.3) L 04/29/19 06:35 Hct 31.6 % (32.4-45.2) L 04/29/19 06:35 MCV 86.3 fl (80-96) 04/29/19 06:35 MCH 27.6 pg (25.7-33.7) 04/29/19 06:35 MCHC 32.0 g/dl (32.0-36.0) 04/29/19 06:35 RDW 16.2 % (11.6-15.6) H 12/10/19 06:35 Plt Count 206 K/MM3 (134-434) 04/29/19 06:35 MPV 7.6 fl (7.5-11.1) 04/29/19 06:35 Absolute Neuts (auto) 3.7 K/mm3 (1.5-8.0) 04/19/19 12:30 Neutrophils % 64.1 % (42.8-82.8) 04/19/19 12:30 Lymphocytes % 17.9 % (8-40) D 04/19/19 12:30 Monocytes % 17.5 % (3.8-10.2) H 04/19/19 12:30 Eosinophils % 0.0 % (0-4.5) 04/19/19 12:30 Basophils % 0.5 % (0-2.0) 04/19/19 12:30 Nucleated RBC % 1 % (0-0) H 04/19/19 12:30 Sodium 138 mmol/L (136-145) 04/29/19 06:35 Potassium 2.8 mmol/L (3.5-5.1) L* 04/29/19 06:35 Chloride 96 mmol/L (98-107) L 04/29/19 06:35 Carbon Dioxide 36 mmol/L (21-32) H 04/29/19 06:35 Anion Gap 7 MMOL/L (8-16) L 04/29/19 06:35 BUN 79.4 mg/dL (7-18) H 04/29/19 06:35 Creatinine 0.8 mg/dL (0.55-1.3) 04/29/19 06:35 Est GFR (CKD-EPI)AfAm 89.67 04/29/19 06:35 Est GFR (CKD-EPI)NonAf 77.37 04/29/19 06:35 POC Glucometer 105 UNITS (80-120) 04/29/19 11:44 Random Glucose 87 mg/dL (74-106) 04/29/19 06:35 Calcium 8.6 mg/dL (8.5-10.1) 04/29/19 06:35 Phosphorus 3.3 mg/dL (2.5-4.9) 04/29/19 06:35 Magnesium 1.8 mg/dL (1.8-2.4) 04/29/19 06:35 Total Bilirubin 0.8 mg/dL (0.2-1) 04/29/19 06:35 AST 25 U/L (15-37) 04/29/19 06:35 ALT 25 U/L (13-61) 04/29/19 06:35 Alkaline Phosphatase 83 U/L (45-117) 04/29/19 06:35 Creatine Kinase 125 U/L (26-192) 04/20/19 05:50 Creatine Kinase Index 2.9 % (0.0-5.0) 04/19/19 20:40 CK-MB (CK-2) 4.4 ng/mL (0.5-3.6) H 04/19/19 20:40 Troponin I 0.12 ng/ml (0.00-0.05) H 04/20/19 05:50 B-Natriuretic Peptide 6552.5 pg/ml (5-125) H 04/19/19 12:30 Total Protein 5.7 g/dl (6.4-8.2) L 04/29/19 06:35 Albumin 2.7 g/dl (3.4-5.0) L 04/29/19 06:35 Lipase 37 U/L (73-393) L 04/19/19 20:40 Active Medications Current Medications Apixaban (Eliquis -) 5 mg PO BID [facility] Last Admin: 04/29/19 09:12 Dose: 5 mg Clopidogrel Bisulfate (Plavix -) 75 mg PO DAILY [facility] Last Admin: 04/29/19 09:12 Dose: 75 mg Docusate Sodium (Colace -) 100 mg PO DAILY PRN PRN Reason: CONSTIPATION Furosemide (Lasix Injection -) 40 mg IVPUSH BID@0600,1400 [facility] Last Admin: 04/29/19 13:35 Dose: 40 mg Levothyroxine Sodium (Synthroid -) 75 mcg PO DAILY@0700 [facility] Last Admin: 04/29/19 06:51 Dose: 75 mcg Lisinopril (Prinivil) 2.5 mg PO DAILY [facility] Metoprolol Succinate (Toprol Xl -) 75 mg PO DAILY [facility] Last Admin: 04/29/19 09:12 Dose: 75 mg Potassium Chloride (K-Dur -) 20 meq PO BID [facility] Senna (Senna -) 1 tab PO HS PRN PRN Reason: CONSTIPATION Home Medications Medication Instructions Recorded Clopidogrel Bisulfate [Plavix -] 75 mg PO DAILY #30 tablet 08/02/17 Levothyroxine [Synthroid -] 75 mcg PO DAILY@0700 30 Days #30 08/02/17 tablet Furosemide [Lasix] 80 mg PO DAILY #30 tablet 10/22/18 Metoprolol Succinate [Toprol XL -] 25 mg PO TID 12/09/18 Spironolactone 25 mg PO DAILY 12/09/18 Sacubitril/Valsartan [Entresto 49 1 tab PO BID #0 tablet 12/16/18 mg-51 mg Tablet] Microbiology 04/19/19 20:40 Urine - Urine Clean Catch Urine Culture - Final NO GROWTH OBTAINED ASSESSMENT/PLAN: 63 y/o F, pmh of Severe systolic HFrEF s/p ICD, A. Fib, HTN, HLD, CAD s/p CABG and PCI, s/p NSTEMI, HTN, DM, COPD(home 5L), hypothyroidism, presents with worsening abdominal pain, and distention of 3 day duration is admitted for acute CHF exacerbation and A-fib w/ RVR #Acute on chronic systolic CHF Give last IV Lasix 40 BID today and hold dose- due to increasing BUN/Cre Lisinopril 2.5 given today Hold Inotropes for now- if systolic pressures drops, consider restarting after discussing with cardio Cardio recom eval at [facility] by heart failure team, if condition does not improve Cardio consult appreciated #A-fib no hx of previous A-fib cont Toprol 75, can consider Carvedilol unless rate control is an issue Eliquis 5 Will get ICD interrogated #Hypokalemia Potassium chloride 20 meq BID give for 2 days Plan to restart spiranolactone #RUE edema likely 2/2 to fluid overload #LIANNA on CKD likely due to cardiorenal syndrome #Hypothyroidism cont synthroid 75mcg #CAD s/p CABG cont Plavix 75 #DVT ppx on eliquis FEN PO diet sodium controlled diet monitor lytes Dispo: if BP drops, consider inotropes, last dose of IV lasix and then hold Visit type - Emergency Visit Emergency Visit: Yes ED Registration Date: 04/19/19 Care time: The patient presented to the Emergency Department on the above date and was hospitalized for further evaluation of their emergent condition. - New Patient This patient is new to me today: Yes Date on this admission: 05/02/19 - Critical Care Critical Care patient: No - Discharge Referral Referred to [facility] No ATTENDING PHYSICIAN STATEMENT I saw and evaluated the patient. I reviewed the resident's note and discussed the case with the resident. I agree with the resident's findings and plan as documented. SUBJECTIVE: OBJECTIVE: ASSESSMENT AND PLAN:
--- NOTE | 2019-04-29 16:07 | PN ---
Progress Note, Physician History of Present Illness: Pt seen and examined at bedside. She is awake and appears more comfortable. - Current Medication List Current Medications: Active Medications Apixaban (Eliquis -) 5 mg PO BID [facility] Last Admin: 04/29/19 09:12 Dose: 5 mg Clopidogrel Bisulfate (Plavix -) 75 mg PO DAILY [facility] Last Admin: 04/29/19 09:12 Dose: 75 mg Docusate Sodium (Colace -) 100 mg PO DAILY PRN PRN Reason: CONSTIPATION Furosemide (Lasix Injection -) 40 mg IVPUSH DAILY [facility] Levothyroxine Sodium (Synthroid -) 75 mcg PO DAILY@0700 [facility] Last Admin: 04/29/19 06:51 Dose: 75 mcg Lisinopril (Prinivil) 2.5 mg PO DAILY [facility] Metoprolol Succinate (Toprol Xl -) 75 mg PO DAILY [facility] Last Admin: 04/29/19 09:12 Dose: 75 mg Potassium Chloride (K-Dur -) 20 meq PO BID [facility] Senna (Senna -) 1 tab PO HS PRN PRN Reason: CONSTIPATION - Objective Vital Signs: Vital Signs Temperature 98 F 04/29/19 14:20 Pulse Rate 93 H 04/29/19 14:20 Respiratory Rate 18 04/29/19 14:20 Blood Pressure 127/76 04/29/19 14:20 O2 Sat by Pulse Oximetry (%) 99 04/29/19 09:05 Constitutional: Yes: Calm Eyes: Yes: Conjunctiva Clear HENT: Yes: Atraumatic Cardiovascular: Yes: S1, S2 Respiratory: Yes: CTA Bilaterally Gastrointestinal: Yes: Soft, Abdomen, Obese Genitourinary: Yes: WNL Edema: Yes Edema: LLE: 1+, RLE: 1+ Neurological: Yes: Oriented Psychiatric: Yes: Oriented Labs: CBC, BMP 04/29/19 06:35 04/29/19 06:35 Problem List - Problems (1) LIANNA (acute kidney injury) Code(s): N17.9 - ACUTE KIDNEY FAILURE, UNSPECIFIED (2) Rapid atrial fibrillation Code(s): I48.91 - UNSPECIFIED ATRIAL FIBRILLATION (3) CHF (congestive heart failure) Code(s): I50.9 - HEART FAILURE, UNSPECIFIED Qualifiers: Heart failure type: unspecified Heart failure chronicity: acute on chronic Qualified Code(s): I50.9 - Heart failure, unspecified (4) Anasarca Code(s): R60.1 - GENERALIZED EDEMA Assessment/Plan Current Medications Generic Name Dose Route Start Last Admin Trade Name Fremushtaq PRN Reason Stop Dose Admin Apixaban 5 mg 04/22/19 10:00 04/29/19 09:12 Eliquis - PO 5 mg BID RINA Administration Clopidogrel Bisulfate 75 mg 04/20/19 10:00 04/29/19 09:12 Plavix - PO 75 mg DAILY RINA Administration Docusate Sodium 100 mg 04/21/19 03:21 Colace - PO DAILY PRN CONSTIPATION Furosemide 40 mg 04/30/19 10:00 Lasix Injection - IVPUSH DAILY RINA Levothyroxine Sodium 75 mcg 04/20/19 07:00 04/29/19 06:51 Synthroid - PO 75 mcg DAILY@0700 R[facility] Administration Lisinopril 2.5 mg 04/30/19 10:00 Prinivil PO DAILY R[facility] Metoprolol Succinate 75 mg 04/20/19 18:30 04/29/19 09:12 Toprol Xl - PO 75 mg DAILY RINA Administration Potassium Chloride 20 meq 04/29/19 22:00 K-Dur - PO BID RINA Senna 1 tab 04/21/19 03:23 Senna - PO HS PRN CONSTIPATION Impression 1. LIANNA 2. CHF 3. volume overload 4. HTN 5. HLD 6. DM 7. CAD 8. COPD 9. active smoker 10. anasarca 11. hypotension 12. hx of positive danielle Plan - replace potassium - agree with decreasing lasix to daily - discussed with medical team - renal function improved - will need rheum eval for pos danielle - check daily weights
[2019-04-29] MEDS: POTASSIUM CHLORIDE TABS 20 MEQ TABLET.ER (FP) PO SCH (21:49)
[2019-04-30] MEDS: LEVOTHYROXINE NA 75 MCG TABLET (FP) PO SCH (06:48)
[2019-04-30] MEDS: LISINOPRIL 5 MG TABLET (FP) PO SCH (09:44)
[2019-04-30] MEDS: CLOPIDOGREL BISULFATE 75 MG TABLET (FP) PO SCH (09:44)
[2019-04-30] MEDS: APIXABAN 5 MG TABLET PO SCH ×2 (09:45→21:15)
[2019-04-30] MEDS: POTASSIUM CHLORIDE TABS 20 MEQ TABLET.ER (FP) PO SCH ×2 (09:45→21:16)
[2019-04-30] MEDS: FUROSEMIDE 40 MG/4 ML INJECTABLE VIAL IVPUSH SCH (09:45)
[2019-04-30] MEDS: metoPROLOL SUCCINATE 25 MG TAB.SR.24H (FP) PO SCH (09:45)
--- NOTE | 2019-04-30 11:15 | PN ---
Progress Note, Physician History of Present Illness: The patient is a 63 year old female, with a significant PMH of eevere systolic HFrEF s/p ICD, A. Fib, HTN, HLD, CAD s/p CABG and PCI, s/p NSTEMI, HTN, DM, COPD (home 5L), hypothyroidism, who presents to the ED for evaluation of worsening abdomen distention and diffuse abdominal pain x 3 days. Patient reports that she has been feeling whole body aching for a while, but it became worse over the past 3 days, along with a sharp diffuse abdominal pain, that became distended. Patient also endorses weakness and bilateral lower extremity edema, dyspnea, orthopnea. Patient previously admitted for the same complaint. She denies near or true syncope or palpitations, diet, medication indiscretion or NSAID use. Abd/pelvic CT and abd US shows significant ascites. - Current Medication List Current Medications: Active Medications Apixaban (Eliquis -) 5 mg PO BID [facility] Last Admin: 04/30/19 09:45 Dose: 5 mg Clopidogrel Bisulfate (Plavix -) 75 mg PO DAILY [facility] Last Admin: 04/30/19 09:44 Dose: 75 mg Docusate Sodium (Colace -) 100 mg PO DAILY PRN PRN Reason: CONSTIPATION Furosemide (Lasix Injection -) 40 mg IVPUSH DAILY [facility] Last Admin: 04/30/19 09:45 Dose: 40 mg Levothyroxine Sodium (Synthroid -) 75 mcg PO DAILY@0700 [facility] Last Admin: 04/30/19 06:48 Dose: 75 mcg Lisinopril (Prinivil) 2.5 mg PO DAILY [facility] Last Admin: 04/30/19 09:44 Dose: 2.5 mg Metoprolol Succinate (Toprol Xl -) 75 mg PO DAILY [facility] Last Admin: 04/30/19 09:45 Dose: 75 mg Potassium Chloride (K-Dur -) 20 meq PO BID [facility] Last Admin: 04/30/19 09:45 Dose: 20 meq Senna (Senna -) 1 tab PO HS PRN PRN Reason: CONSTIPATION - Objective Vital Signs: Vital Signs Temperature 97.8 F 04/30/19 05:00 Pulse Rate 71 04/30/19 05:00 Respiratory Rate 19 04/30/19 05:00 Blood Pressure 98/58 L 04/30/19 05:00 O2 Sat by Pulse Oximetry (%) 100 04/29/19 21:00 Eyes: Yes: WNL, Conjunctiva Clear, EOM Intact HENT: Yes: WNL, Atraumatic, Normocephalic Neck: Yes: WNL, Supple, Trachea Midline Cardiovascular: Yes: WNL, Regular Rate and Rhythm Respiratory: Yes: WNL, Regular, CTA Bilaterally Gastrointestinal: Yes: WNL, Normal Bowel Sounds Genitourinary: Yes: WNL Musculoskeletal: Yes: WNL Extremities: Yes: WNL Edema: Yes Integumentary: Yes: WNL Neurological: Yes: WNL, Alert, Oriented ...Motor Strength: WNL Psychiatric: Yes: WNL Labs: CBC, BMP 04/29/19 06:35 04/29/19 06:35 Assessment/Plan - Problems (1) PAF (paroxysmal atrial fibrillation) Assessment/Plan: On metoprolol ER for HR control (and systolic LV dysfunction). On apixaban for anticoagulation. Code(s): I48.0 - PAROXYSMAL ATRIAL FIBRILLATION (2) LIANNA (acute kidney injury) Code(s): N17.9 - ACUTE KIDNEY FAILURE, UNSPECIFIED (3) AICD (automatic cardioverter/defibrillator) present Code(s): Z95.810 - PRESENCE OF AUTOMATIC (IMPLANTABLE) CARDIAC DEFIBRILLATOR (4) Acute on chronic systolic and diastolic heart failure, NYHA class 3 Assessment/Plan: Restart lisinorpil (2.5 mg initially) qd. On metoprolol ER. Decrease furosemide (clinically improving; increasing BUN/Cr). Plan to restart spironolactone (severely reduced LVEF; hypokalemia). F/u BUn/Cr, electrolytes, daily weight, Is and Os, BP and HR. Code(s): I50.43 - ACUTE ON CHRONIC COMBINED SYSTOLIC AND DIASTOLIC HRT FAIL (5) Anemia Code(s): D64.9 - ANEMIA, UNSPECIFIED (6) Anxiety and depression Code(s): F41.9 - ANXIETY DISORDER, UNSPECIFIED; F32.9 - MAJOR DEPRESSIVE DISORDER, SINGLE EPISODE, UNSPECIFIED (7) Hx of CABG Code(s): Z95.1 - PRESENCE OF AORTOCORONARY BYPASS GRAFT (8) Hypokalemia Code(s): E87.6 - HYPOKALEMIA (9) Noncompliance with therapeutic plan Code(s): Z91.11 - PATIENT'S NONCOMPLIANCE WITH DIETARY REGIMEN (10) Overweight Code(s): E66.3 - OVERWEIGHT (11) Smokes cigarettes Code(s): F17.210 - NICOTINE DEPENDENCE, CIGARETTES, UNCOMPLICATED (12) Hyperlipidemia Code(s): E78.5 - HYPERLIPIDEMIA, UNSPECIFIED (13) Hypertension Code(s): I10 - ESSENTIAL (PRIMARY) HYPERTENSION (14) ICD (implantable cardioverter-defibrillator) in place Code(s): Z95.810 - PRESENCE OF AUTOMATIC (IMPLANTABLE) CARDIAC DEFIBRILLATOR (15) Lower extremity edema Code(s): R60.0 - LOCALIZED EDEMA (16) NSVT (nonsustained ventricular tachycardia) Code(s): I47.2 - VENTRICULAR TACHYCARDIA (17) Peripheral neuropathy Code(s): G62.9 - POLYNEUROPATHY, UNSPECIFIED Qualifiers: Peripheral neuropathy type: polyneuropathy, unspecified Qualified Code(s): G62.9 - Polyneuropathy, unspecified (18) Sleep apnea Code(s): G47.30 - SLEEP APNEA, UNSPECIFIED (19) Sphincter of Oddi dysfunction Code(s): K83.4 - SPASM OF SPHINCTER OF ODDI (20) Status post THR (total hip replacement) Code(s): Z96.649 - PRESENCE OF UNSPECIFIED ARTIFICIAL HIP JOINT (21) Hypothyroidism Assessment/Plan: On synthroid; adjust dose (elevated free T4). Code(s): E03.9 - HYPOTHYROIDISM, UNSPECIFIED
--- NOTE | 2019-04-30 13:16 | PN ---
Progress Note, Physician History of Present Illness: Pt seen and examined at bedside. She feels breathing is improved. - Current Medication List Current Medications: Active Medications Apixaban (Eliquis -) 5 mg PO BID [facility] Last Admin: 04/30/19 09:45 Dose: 5 mg Clopidogrel Bisulfate (Plavix -) 75 mg PO DAILY [facility] Last Admin: 04/30/19 09:44 Dose: 75 mg Docusate Sodium (Colace -) 100 mg PO DAILY PRN PRN Reason: CONSTIPATION Furosemide (Lasix Injection -) 40 mg IVPUSH DAILY [facility] Last Admin: 04/30/19 09:45 Dose: 40 mg Levothyroxine Sodium (Synthroid -) 75 mcg PO DAILY@0700 [facility] Last Admin: 04/30/19 06:48 Dose: 75 mcg Lisinopril (Prinivil) 2.5 mg PO DAILY [facility] Last Admin: 04/30/19 09:44 Dose: 2.5 mg Metoprolol Succinate (Toprol Xl -) 75 mg PO DAILY [facility] Last Admin: 04/30/19 09:45 Dose: 75 mg Potassium Chloride (K-Dur -) 20 meq PO BID [facility] Last Admin: 04/30/19 09:45 Dose: 20 meq Senna (Senna -) 1 tab PO HS PRN PRN Reason: CONSTIPATION - Objective Vital Signs: Vital Signs Temperature 97.8 F 04/30/19 05:00 Pulse Rate 71 04/30/19 05:00 Respiratory Rate 19 04/30/19 05:00 Blood Pressure 98/58 L 04/30/19 05:00 O2 Sat by Pulse Oximetry (%) 100 04/29/19 21:00 Constitutional: Yes: Calm Eyes: Yes: Conjunctiva Clear HENT: Yes: Atraumatic Neck: Yes: Supple Cardiovascular: Yes: S1, S2 Respiratory: Yes: CTA Bilaterally Gastrointestinal: Yes: Soft Genitourinary: Yes: WNL Musculoskeletal: Yes: WNL Edema: Yes Edema: LLE: 1+, RLE: 1+ Neurological: Yes: Oriented Psychiatric: Yes: Oriented Labs: CBC, BMP 04/29/19 06:35 04/29/19 06:35 Problem List - Problems (1) LIANNA (acute kidney injury) Code(s): N17.9 - ACUTE KIDNEY FAILURE, UNSPECIFIED (2) Rapid atrial fibrillation Code(s): I48.91 - UNSPECIFIED ATRIAL FIBRILLATION (3) CHF (congestive heart failure) Code(s): I50.9 - HEART FAILURE, UNSPECIFIED Qualifiers: Heart failure type: unspecified Heart failure chronicity: acute on chronic Qualified Code(s): I50.9 - Heart failure, unspecified (4) Anasarca Code(s): R60.1 - GENERALIZED EDEMA Assessment/Plan Current Medications Generic Name Dose Route Start Last Admin Trade Name Freq PRN Reason Stop Dose Admin Apixaban 5 mg 04/22/19 10:00 04/30/19 09:45 Eliquis - PO 5 mg BID RINA Administration Clopidogrel Bisulfate 75 mg 04/20/19 10:00 04/30/19 09:44 Plavix - PO 75 mg DAILY RINA Administration Docusate Sodium 100 mg 04/21/19 03:21 Colace - PO DAILY PRN CONSTIPATION Furosemide 40 mg 04/30/19 10:00 04/30/19 09:45 Lasix Injection - IVPUSH 40 mg DAILY RINA Administration Levothyroxine Sodium 75 mcg 04/20/19 07:00 04/30/19 06:48 Synthroid - PO 75 mcg DAILY@0700 RINA Administration Lisinopril 2.5 mg 04/30/19 10:00 04/30/19 09:44 Prinivil PO 2.5 mg DAILY RINA Administration Metoprolol Succinate 75 mg 04/20/19 18:30 04/30/19 09:45 Toprol Xl - PO 75 mg DAILY RINA Administration Potassium Chloride 20 meq 04/29/19 22:00 04/30/19 09:45 K-Dur - PO 20 meq BID RINA Administration Senna 1 tab 04/21/19 03:23 Senna - PO HS PRN CONSTIPATION Impression 1. LIANNA 2. CHF 3. volume overload 4. HTN 5. HLD 6. DM 7. CAD 8. COPD 9. active smoker 10. anasarca 11. hypotension 12. hx of positive danielle Plan - pt refusing labs - check bmp if she changes her mind - cardio follow up - will need rheum eval for pos danielle - check daily weights
--- NOTE | 2019-04-30 16:14 | PN ---
Physical Exam: SUBJECTIVE: Currently, there is improvement today. She still has generalized body pain. Appears less volume overloaded. She moved her bowels and has urinated but has difficulty resting due to pain. Denies f/c/n/v/d/chest pain. OBJECTIVE: Vital Signs Period Temp Pulse Resp BP Sys/Santoro Pulse Ox Last 24 Hr 97.8 F-98.8 F 71-95 18-20 98-125/57-89 100 GENERAL: The patient is awake, alert, and fully oriented. Mild distress due to pain. EYES: PERRL, extraocular movements intact, sclera anicteric ENT: oropharynx clear without exudates, moist mucous membranes. NECK: full range of motion, supple. LUNGS: Breath sounds equal, clear to auscultation bilaterally, no wheezes, mild crackles, HEART: Regular rate and irregular rhythm, S1, S2 without murmur, rub or gallop. ABDOMEN: Soft but tender, distended, normoactive bowel sounds, no guarding, no rebound EXTREMITIES: UE: RUE 1+ edema, pitting- improved LE: 2+ pulses, warm, Edema 2+ pitting b/l, Small pockets of fluid are developing under her 1st and 2nd toes b/l- likely signs of fluid overload- improved today NEUROLOGICAL: Cranial nerves II through XII grossly intact. PSYCH: Normal mood, normal affect. SKIN: Warm, dry, normal turgo Laboratory Results - last 24 hr 04/29/19 04/30/19 22:04 06:03 POC Glucometer 125 83 Active Medications Current Medications Apixaban (Eliquis -) 5 mg PO BID [facility] Last Admin: 04/30/19 09:45 Dose: 5 mg Clopidogrel Bisulfate (Plavix -) 75 mg PO DAILY [facility] Last Admin: 04/30/19 09:44 Dose: 75 mg Docusate Sodium (Colace -) 100 mg PO DAILY PRN PRN Reason: CONSTIPATION Furosemide (Lasix Injection -) 40 mg IVPUSH DAILY [facility] Last Admin: 04/30/19 09:45 Dose: 40 mg Levothyroxine Sodium (Synthroid -) 75 mcg PO DAILY@0700 [facility] Last Admin: 04/30/19 06:48 Dose: 75 mcg Lisinopril (Prinivil) 2.5 mg PO DAILY [facility] Last Admin: 04/30/19 09:44 Dose: 2.5 mg Metoprolol Succinate (Toprol Xl -) 75 mg PO DAILY [facility] Last Admin: 04/30/19 09:45 Dose: 75 mg Potassium Chloride (K-Dur -) 20 meq PO BID [facility] Last Admin: 04/30/19 09:45 Dose: 20 meq Senna (Senna -) 1 tab PO HS PRN PRN Reason: CONSTIPATION Home Medications Medication Instructions Recorded Clopidogrel Bisulfate [Plavix -] 75 mg PO DAILY #30 tablet 08/02/17 Levothyroxine [Synthroid -] 75 mcg PO DAILY@0700 30 Days #30 08/02/17 tablet Furosemide [Lasix] 80 mg PO DAILY #30 tablet 10/22/18 Metoprolol Succinate [Toprol XL -] 25 mg PO TID 12/09/18 Spironolactone 25 mg PO DAILY 12/09/18 Sacubitril/Valsartan [Entresto 49 1 tab PO BID #0 tablet 12/16/18 mg-51 mg Tablet] Microbiology 04/19/19 20:40 Urine - Urine Clean Catch Urine Culture - Final NO GROWTH OBTAINED ASSESSMENT/PLAN: 63 y/o F, pmh of Severe systolic HFrEF s/p ICD, A. Fib, HTN, HLD, CAD s/p CABG and PCI, s/p NSTEMI, HTN, DM, COPD(home 5L), hypothyroidism, presents with worsening abdominal pain, and distention of 3 day duration is admitted for acute CHF exacerbation and A-fib w/ RVR #Acute on chronic systolic CHF Decreased IV Lasix to 40 daily today Lisinopril 2.5 given Hold Inotropes for now- if systolic pressures drops, consider restarting after discussing with cardio Cardio recom eval at [facility] by heart failure team, if condition does not improve #A-fib no hx of previous A-fib cont Toprol 75, can consider Carvedilol unless rate control is an issue Eliquis 5 Will get ICD interrogated #Hypokalemia Potassium chloride 20 meq BID give for 2 days Plan to restart spiranolactone #RUE edema likely 2/2 to fluid overload #LIANNA on CKD likely due to cardiorenal syndrome #Hypothyroidism cont synthroid 75mcg #CAD s/p CABG cont Plavix 75 #DVT ppx on eliquis FEN PO diet sodium controlled diet monitor lytes Dispo: if BP drops, consider inotropes, IV lasix 40 daily Visit type - Emergency Visit Emergency Visit: Yes ED Registration Date: 04/19/19 Care time: The patient presented to the Emergency Department on the above date and was hospitalized for further evaluation of their emergent condition. - New Patient This patient is new to me today: Yes Date on this admission: 05/02/19 - Critical Care Critical Care patient: No - Discharge Referral Referred to [facility] Med P.C.: No ATTENDING PHYSICIAN STATEMENT I saw and evaluated the patient. I reviewed the resident's note and discussed the case with the resident. I agree with the resident's findings and plan as documented. SUBJECTIVE: OBJECTIVE: ASSESSMENT AND PLAN:
--- NOTE | 2019-04-30 19:26 | PN ---
Teaching Attending Note Name of Resident: Rusty Earl ATTENDING PHYSICIAN STATEMENT I saw and evaluated the patient. I reviewed the resident's note and discussed the case with the resident. I agree with the resident's findings and plan as documented. SUBJECTIVE: Patient is slightly better today with no acute distress, feels better , sitting on the bed . Vital Signs Temperature 97.8 F 04/30/19 17:00 Pulse Rate 102 H 04/30/19 17:00 Respiratory Rate 20 04/30/19 17:00 Blood Pressure 118/68 04/30/19 17:00 O2 Sat by Pulse Oximetry (%) 100 04/29/19 21:00 GENERAL: The patient is awake, alert, and oriented, in no acute distress. HEAD: Normal with no signs of trauma. EYES: PERRL, EOMI, sclera anicteric, conjunctiva clear. . ENT: Ears normal, oropharynx clear without exudates, moist mucous membranes. NECK: Trachea midline, full range of motion, supple. LUNGS:decreased Breath sounds bl, no wheezes, no crackles, no accessory muscle use. HEART: Regular rate and rhythm, S1, S2 positive, brennen 3/6 , no rub or gallop. ABDOMEN: Soft, NT, comfortable , positive for anasarca , normoactive bowel sounds, no guarding, no rebound, no hepatosplenomegaly, no masses. EXTREMITIES: 2+ pulses, warm, well-perfused, positive for anasarca generalized , 2+ edema of lower extremities NEUROLOGICAL: Cranial nerves II through XII grossly intact. Normal speech, gait not observed. PSYCH: flat affect SKIN: Warm, dry, normal turgor, no rashes or lesions noted CBCD WBC 4.2 K/mm3 (4.0-10.0) 04/29/19 06:35 RBC 3.67 M/mm3 (3.60-5.2) 04/29/19 06:35 Hgb 10.1 GM/dL (10.7-15.3) L 04/29/19 06:35 Hct 31.6 % (32.4-45.2) L 04/29/19 06:35 MCV 86.3 fl (80-96) 04/29/19 06:35 MCHC 32.0 g/dl (32.0-36.0) 04/29/19 06:35 RDW 16.2 % (11.6-15.6) H 04/29/19 06:35 Plt Count 206 K/MM3 (134-434) 04/29/19 06:35 MPV 7.6 fl (7.5-11.1) 04/29/19 06:35 CMP Sodium 138 mmol/L (136-145) 04/29/19 06:35 Potassium 2.8 mmol/L (3.5-5.1) L* 04/29/19 06:35 Chloride 96 mmol/L (98-107) L 04/29/19 06:35 Carbon Dioxide 36 mmol/L (21-32) H 04/29/19 06:35 Anion Gap 7 MMOL/L (8-16) L 04/29/19 06:35 BUN 79.4 mg/dL (7-18) H 04/29/19 06:35 Creatinine 0.8 mg/dL (0.55-1.3) 04/29/19 06:35 Random Glucose 87 mg/dL (74-106) 04/29/19 06:35 Calcium 8.6 mg/dL (8.5-10.1) 04/29/19 06:35 Total Bilirubin 0.8 mg/dL (0.2-1) 04/29/19 06:35 AST 25 U/L (15-37) 04/29/19 06:35 ALT 25 U/L (13-61) 04/29/19 06:35 Alkaline Phosphatase 83 U/L (45-117) 04/29/19 06:35 Total Protein 5.7 g/dl (6.4-8.2) L 04/29/19 06:35 Albumin 2.7 g/dl (3.4-5.0) L 04/29/19 06:35 CARDIAC ENZYMES Creatine Kinase 125 U/L (26-192) 04/20/19 05:50 Troponin I 0.12 ng/ml (0.00-0.05) H 04/20/19 05:50 Medication Instructions Recorded Clopidogrel Bisulfate [Plavix -] 75 mg PO DAILY #30 tablet 08/02/17 Levothyroxine [Synthroid -] 75 mcg PO DAILY@0700 30 Days #30 08/02/17 tablet Furosemide [Lasix] 80 mg PO DAILY #30 tablet 10/22/18 Metoprolol Succinate [Toprol XL -] 25 mg PO TID 12/09/18 Spironolactone 25 mg PO DAILY 12/09/18 Sacubitril/Valsartan [Entresto 49 1 tab PO BID #0 tablet 12/16/18 mg-51 mg Tablet] Microbiology 04/19/19 20:40 Urine - Urine Clean Catch Urine Culture - Final NO GROWTH OBTAINED Laboratory Tests 07/09/16 07/10/16 07/10/16 13:00 00:43 06:45 Potassium 2.9 L* BUN 18 D 21 H Creatinine 0.9 0.8 Ammonia 52.96 H 07/11/16 04/19/19 04/20/19 05:35 12:30 05:50 Potassium 3.2 L BUN 30 H D Creatinine 1.4 H D 2.2 H 2.4 H Ammonia 04/22/19 04/23/19 04/24/19 10:00 06:10 06:30 Potassium BUN Creatinine 3.4 H 3.4 H 3.5 H Ammonia 04/25/19 04/26/19 05:25 11:16 Potassium BUN Creatinine 3.0 H 2.2 H Ammonia Current Medications Generic Name Dose Route Start Last Admin Trade Name Freq PRN Reason Stop Dose Admin Apixaban 5 mg 04/22/19 10:00 04/30/19 09:45 Eliquis - PO 5 mg BID [facility] Administration Clopidogrel Bisulfate 75 mg 04/20/19 10:00 04/30/19 09:44 Plavix - PO 75 mg DAILY [facility] Administration Docusate Sodium 100 mg 04/21/19 03:21 Colace - PO DAILY PRN CONSTIPATION Furosemide 40 mg 04/30/19 10:00 04/30/19 09:45 Lasix Injection - IVPUSH 40 mg DAILY [facility] Administration Levothyroxine Sodium 75 mcg 04/20/19 07:00 04/30/19 06:48 Synthroid - PO 75 mcg DAILY@0700 [facility] Administration Lisinopril 2.5 mg 04/30/19 10:00 04/30/19 09:44 Prinivil PO 2.5 mg DAILY [facility] Administration Metoprolol Succinate 75 mg 04/20/19 18:30 04/30/19 09:45 Toprol Xl - PO 75 mg DAILY [facility] Administration Potassium Chloride 20 meq 04/29/19 22:00 04/30/19 09:45 K-Dur - PO 20 meq BID [facility] Administration Senna 1 tab 04/21/19 03:23 Senna - PO HS PRN CONSTIPATION Spironolactone 25 mg 05/01/19 10:00 Aldactone - PO DAILY [facility] Home Medications Medication Instructions Recorded Clopidogrel Bisulfate [Plavix -] 75 mg PO DAILY #30 tablet 08/02/17 Levothyroxine [Synthroid -] 75 mcg PO DAILY@0700 30 Days #30 08/02/17 tablet Furosemide [Lasix] 80 mg PO DAILY #30 tablet 10/22/18 Metoprolol Succinate [Toprol XL -] 25 mg PO TID 12/09/18 Spironolactone 25 mg PO DAILY 12/09/18 Sacubitril/Valsartan [Entresto 49 1 tab PO BID #0 tablet 12/16/18 mg-51 mg Tablet] Microbiology 04/19/19 20:40 Urine - Urine Clean Catch Urine Culture - Final NO GROWTH OBTAINED CT scan of abdomen and pelvis: Anasarca ASSESSMENT AND PLAN: Patient is a 61 yo female, with PMhx of hypertension, HLD, CAD, OR (X2, s/p defibrillator/pacemaker and CABG), CHF, DM II, kidney stones, peripheral neuropathy, hypothyroidism, and non compliance who presented with SOB and was found to have A fib with RVR and Acute exacerbation of diastolic and Systolic CHF # Acute new onset A fib: with [id number] score of 6 , on BB, continue eliquis. #Hx of CAD s/p CABG, PCI/stent, On plavix /elequis continue # Anasarca on IV lasix 40mg daily switched from 80mg IV bid,continue , added aldactone 25mg continue , nephro on the case and appreciated # Acute on chronic diastolic and systolic CHF: on IV lasix 40mg IV s/p 80 mg IV BID , will hold Entresto, continue spironolactone as per cardio , cont BB . ICD interrogation ,most likely for this afternoon # LIANNA on CKD: due to cardiorenal syndrome , continue daily diuresing as per cardio , nephro on the case as well # Elevated trop : no evidence of ischemia #Hx of HTN/HLD continue with lasix for now, BB # Hx of COPD/Hypothyroidism continue home meds DVT PX: elliquis continue to monitor, CMps , renal function
[2019-05-01] MEDS: ACETAMINOPHEN 325 MG TABLET (FP) PO PRN ×3 (01:56→21:23)
[2019-05-01] MEDS: LEVOTHYROXINE NA 75 MCG TABLET (FP) PO SCH (06:27)
[2019-05-01 07:12] LABS: HEMATOCRIT 33.2 % (32.4-45.2); MCH 28.4 pg (25.7-33.7); PLATELET COUNT 226 K/MM3 (134-434); RBC 3.86 M/mm3 (3.60-5.2); RDW 15.4 % (11.6-15.6); WHITE BLOOD COUNT 15.2 K/mm3 (4.0-10.0)
[2019-05-01 07:40] LABS: ALBUMIN 2.8 g/dl (3.4-5.0); BILIRUBIN,TOTAL 1.2 mg/dL (0.2-1); BLOOD UREA NITROGEN 65.5 mg/dL (7-18); CALCIUM 8.9 mg/dL (8.5-10.1); CREATININE 0.9 mg/dL (0.55-1.3); MAGNESIUM 1.5 mg/dL (1.8-2.4); POTASSIUM 3.8 mmol/L (3.5-5.1); TOT PROT 6.5 g/dl (6.4-8.2)
[2019-05-01] MEDS ORDERED: MAGNESIUM SULF 50% (8.12 MEQ/2 ML-1 GM VIAL) IVPB ONE (08:24)
[2019-05-01] MEDS: metoPROLOL SUCCINATE 25 MG TAB.SR.24H (FP) PO SCH (09:13)
[2019-05-01] MEDS: SPIRONOLACTONE 25 MG TABLET (FP) PO SCH (09:13)
[2019-05-01] MEDS: APIXABAN 5 MG TABLET PO SCH ×2 (09:13→21:23)
[2019-05-01] MEDS: FUROSEMIDE 40 MG/4 ML INJECTABLE VIAL IVPUSH SCH (09:13)
[2019-05-01] MEDS: LISINOPRIL 5 MG TABLET (FP) PO SCH (09:14)
[2019-05-01] MEDS: CLOPIDOGREL BISULFATE 75 MG TABLET (FP) PO SCH (09:14)
--- NOTE | 2019-05-01 11:22 | PN ---
Progress Note, Physician Chief Complaint: Pt A&Ox3; no chest pain, dyspnea; chronic burning sensation in soles of feet. History of Present Illness: 63 yo black woman with PMH of CAD s/p CABG and PCI, HTN, severe HFrEF s/p ICD, A. Fib, COPD(home 5L), DM, hypothyroidism presented to ED from home for worsening abdomen distention and diffuse abdominal pain x 3 days. Patient reports that she has been feeling whole body aching for a while, but it became worse over the past 3 days, along with a sharp diffuse abdominal pain, that became distended. Patient also endorses weakness and mild pain/swelling in both lower extremities - Current Medication List Current Medications: Active Medications Acetaminophen (Tylenol -) 650 mg PO Q6H PRN PRN Reason: Fever Or Pain Last Admin: 05/01/19 01:56 Dose: 650 mg Apixaban (Eliquis -) 5 mg PO BID [facility] Last Admin: 05/01/19 09:13 Dose: 5 mg Clopidogrel Bisulfate (Plavix -) 75 mg PO DAILY [facility] Last Admin: 05/01/19 09:14 Dose: 75 mg Docusate Sodium (Colace -) 100 mg PO DAILY PRN PRN Reason: CONSTIPATION Furosemide (Lasix Injection -) 40 mg IVPUSH DAILY [facility] Last Admin: 05/01/19 09:13 Dose: 40 mg Levothyroxine Sodium (Synthroid -) 75 mcg PO DAILY@0700 [facility] Last Admin: 05/01/19 06:27 Dose: 75 mcg Lisinopril (Prinivil) 2.5 mg PO DAILY [facility] Last Admin: 05/01/19 09:14 Dose: 2.5 mg Metoprolol Succinate (Toprol Xl -) 75 mg PO DAILY [facility] Last Admin: 05/01/19 09:13 Dose: 75 mg Senna (Senna -) 1 tab PO HS PRN PRN Reason: CONSTIPATION Spironolactone (Aldactone -) 25 mg PO DAILY [facility] Last Admin: 05/01/19 09:13 Dose: 25 mg - Objective Vital Signs: Vital Signs Temperature 98.1 F 05/01/19 10:00 Pulse Rate 98 H 05/01/19 10:00 Respiratory Rate 22 H 05/01/19 10:00 Blood Pressure 101/57 L 05/01/19 10:00 O2 Sat by Pulse Oximetry (%) 100 04/30/19 21:00 Labs: CBC, BMP 05/01/19 05:20 05/01/19 05:20 Problem List - Problems (1) PAF (paroxysmal atrial fibrillation) Code(s): I48.0 - PAROXYSMAL ATRIAL FIBRILLATION (2) LIANNA (acute kidney injury) Code(s): N17.9 - ACUTE KIDNEY FAILURE, UNSPECIFIED (3) AICD (automatic cardioverter/defibrillator) present Code(s): Z95.810 - PRESENCE OF AUTOMATIC (IMPLANTABLE) CARDIAC DEFIBRILLATOR (4) Acute on chronic systolic and diastolic heart failure, NYHA class 3 Assessment/Plan: Restarted lisinorpil (2.5 mg initially) qd. On metoprolol ER. Decrease furosemide (clinically improving; increasing BUN/Cr). On spironolactone (severely reduced LVEF; hypokalemia). Plan to optimize oses of lisinopril and spironolactone, and minimize dose of furosemide. F/u BUn/Cr, electrolytes, daily weight, Is and Os, BP and HR. From a cardiac standpoint, pt may be discharged home and followed as an outpatietn. Code(s): I50.43 - ACUTE ON CHRONIC COMBINED SYSTOLIC AND DIASTOLIC HRT FAIL (5) Anemia Code(s): D64.9 - ANEMIA, UNSPECIFIED (6) Anxiety and depression Code(s): F41.9 - ANXIETY DISORDER, UNSPECIFIED; F32.9 - MAJOR DEPRESSIVE DISORDER, SINGLE EPISODE, UNSPECIFIED (7) Hx of CABG Code(s): Z95.1 - PRESENCE OF AORTOCORONARY BYPASS GRAFT (8) Hypokalemia Code(s): E87.6 - HYPOKALEMIA (9) Noncompliance with therapeutic plan Code(s): Z91.11 - PATIENT'S NONCOMPLIANCE WITH DIETARY REGIMEN (10) Overweight Code(s): E66.3 - OVERWEIGHT (11) Smokes cigarettes Code(s): F17.210 - NICOTINE DEPENDENCE, CIGARETTES, UNCOMPLICATED (12) Hyperlipidemia Code(s): E78.5 - HYPERLIPIDEMIA, UNSPECIFIED (13) Hypertension Code(s): I10 - ESSENTIAL (PRIMARY) HYPERTENSION (14) ICD (implantable cardioverter-defibrillator) in place Code(s): Z95.810 - PRESENCE OF AUTOMATIC (IMPLANTABLE) CARDIAC DEFIBRILLATOR (15) Lower extremity edema Code(s): R60.0 - LOCALIZED EDEMA (16) NSVT (nonsustained ventricular tachycardia) Code(s): I47.2 - VENTRICULAR TACHYCARDIA (17) Peripheral neuropathy Code(s): G62.9 - POLYNEUROPATHY, UNSPECIFIED Qualifiers: Peripheral neuropathy type: polyneuropathy, unspecified Qualified Code(s): G62.9 - Polyneuropathy, unspecified (18) Sleep apnea Code(s): G47.30 - SLEEP APNEA, UNSPECIFIED (19) Sphincter of Oddi dysfunction Code(s): K83.4 - SPASM OF SPHINCTER OF ODDI (20) Status post THR (total hip replacement) Code(s): Z96.649 - PRESENCE OF UNSPECIFIED ARTIFICIAL HIP JOINT (21) Hypothyroidism Code(s): E03.9 - HYPOTHYROIDISM, UNSPECIFIED (22) Hypomagnesemia Assessment/Plan: replete Mg. F/u all electrolytes. Gradually minimize furosemide use, and optimize lisinorpil and spironolactone doses. Code(s): E83.42 - HYPOMAGNESEMIA
--- NOTE | 2019-05-01 11:53 | PN ---
Physical Exam: SUBJECTIVE: Much better improvement today. She still has generalized body pain. Appears less volume overloaded. She moved her bowels and has urinated. Denies f/ c/n/v/d/chest pain. OBJECTIVE: Vital Signs Period Temp Pulse Resp BP Sys/Santoro Pulse Ox Last 24 Hr 97.8 F-99.4 F 79-103 18-22 101-118/57-75 100 GENERAL: The patient is awake, alert, and fully oriented. Mild distress due to pain. EYES: PERRL, extraocular movements intact, sclera anicteric ENT: oropharynx clear without exudates, moist mucous membranes. NECK: full range of motion, supple. LUNGS: Breath sounds equal, clear to auscultation bilaterally, no wheezes, mild crackles, HEART: Regular rate and irregular rhythm, S1, S2 without murmur, rub or gallop. ABDOMEN: Soft but tender, distended, normoactive bowel sounds, no guarding, no rebound EXTREMITIES: UE: RUE 1+ edema, pitting- improved LE: 2+ pulses, warm, Edema b/l LE improved NEUROLOGICAL: Cranial nerves II through XII grossly intact. PSYCH: Normal mood, normal affect. SKIN: Warm, dry, normal turgo Laboratory Results - last 24 hr 05/01/19 05/01/19 05/01/19 05:20 05:20 05:46 WBC 15.2 H RBC 3.86 Hgb 11.0 Hct 33.2 MCV 86.0 MCH 28.4 MCHC 33.0 RDW 15.4 Plt Count 226 MPV 8.0 Sodium 138 Potassium 3.8 Chloride 97 L Carbon Dioxide 35 H Anion Gap 7 L BUN 65.5 H Creatinine 0.9 Est GFR (CKD-EPI)AfAm 77.77 Est GFR (CKD-EPI)NonAf 67.10 POC Glucometer 129 Random Glucose 102 Calcium 8.9 Magnesium 1.5 L Total Bilirubin 1.2 H AST 26 ALT 25 Alkaline Phosphatase 109 Total Protein 6.5 Albumin 2.8 L Active Medications Current Medications Acetaminophen (Tylenol -) 650 mg PO Q6H PRN PRN Reason: Fever Or Pain Last Admin: 05/01/19 01:56 Dose: 650 mg Apixaban (Eliquis -) 5 mg PO BID [facility] Last Admin: 05/01/19 09:13 Dose: 5 mg Clopidogrel Bisulfate (Plavix -) 75 mg PO DAILY [facility] Last Admin: 05/01/19 09:14 Dose: 75 mg Docusate Sodium (Colace -) 100 mg PO DAILY PRN PRN Reason: CONSTIPATION Furosemide (Lasix Injection -) 40 mg IVPUSH DAILY [facility] Last Admin: 05/01/19 09:13 Dose: 40 mg Levothyroxine Sodium (Synthroid -) 75 mcg PO DAILY@0700 [facility] Last Admin: 05/01/19 06:27 Dose: 75 mcg Lisinopril (Prinivil) 2.5 mg PO DAILY [facility] Last Admin: 05/01/19 09:14 Dose: 2.5 mg Metoprolol Succinate (Toprol Xl -) 75 mg PO DAILY [facility] Last Admin: 05/01/19 09:13 Dose: 75 mg Senna (Senna -) 1 tab PO HS PRN PRN Reason: CONSTIPATION Spironolactone (Aldactone -) 25 mg PO DAILY [facility] Last Admin: 05/01/19 09:13 Dose: 25 mg Home Medications Medication Instructions Recorded Clopidogrel Bisulfate [Plavix -] 75 mg PO DAILY #30 tablet 08/02/17 Levothyroxine [Synthroid -] 75 mcg PO DAILY@0700 30 Days #30 08/02/17 tablet Furosemide [Lasix] 80 mg PO DAILY #30 tablet 10/22/18 Metoprolol Succinate [Toprol XL -] 25 mg PO TID 12/09/18 Spironolactone 25 mg PO DAILY 12/09/18 Sacubitril/Valsartan [Entresto 49 1 tab PO BID #0 tablet 12/16/18 mg-51 mg Tablet] Microbiology 04/19/19 20:40 Urine - Urine Clean Catch Urine Culture - Final NO GROWTH OBTAINED ASSESSMENT/PLAN: 63 y/o F, pmh of Severe systolic HFrEF s/p ICD, A. Fib, HTN, HLD, CAD s/p CABG and PCI, s/p NSTEMI, HTN, DM, COPD(home 5L), hypothyroidism, presents with worsening abdominal pain, and distention of 3 day duration is admitted for acute CHF exacerbation and A-fib w/ RVR #Elevated WBC UA and UCx ordered CXR negative monitor for now #Acute on chronic systolic CHF Lasix to 40 daily- gradually minimize Lasix use Lisinopril 2.5 Spiranolactone 25 Cardio recom eval at [facility] by heart failure team, if condition does not improve Appreciate cardio consult #A-fib no hx of previous A-fib cont Toprol 75, can consider Carvedilol unless rate control is an issue Eliquis 5 Will get ICD interrogated #Hypomagnesemia repleted mag #RUE edema likely 2/2 to fluid overload improved #LIANNA on CKD likely due to cardiorenal syndrome #Hypothyroidism cont synthroid 75mcg #CAD s/p CABG cont Plavix 75 #DVT ppx on eliquis FEN PO diet sodium controlled diet monitor lytes Dispo: if BP drops, consider inotropes, IV lasix 40 daily Visit type - Emergency Visit Emergency Visit: Yes ED Registration Date: 04/19/19 Care time: The patient presented to the Emergency Department on the above date and was hospitalized for further evaluation of their emergent condition. - New Patient This patient is new to me today: Yes Date on this admission: 05/02/19 - Critical Care Critical Care patient: No - Discharge Referral Referred to [facility] Med P.C.: No ATTENDING PHYSICIAN STATEMENT I saw and evaluated the patient. I reviewed the resident's note and discussed the case with the resident. I agree with the resident's findings and plan as documented. SUBJECTIVE: OBJECTIVE: ASSESSMENT AND PLAN:
--- NOTE | 2019-05-01 13:00 | PN ---
Teaching Attending Note Name of Resident: Rusty Earl ATTENDING PHYSICIAN STATEMENT I saw and evaluated the patient. I reviewed the resident's note and discussed the case with the resident. I agree with the resident's findings and plan as documented. SUBJECTIVE: Seen and examined at bedside. Complaining of generalized body aches and pains. Denies chest pain, n/v/d. No other symptoms. OBJECTIVE: Vital Signs - 24 hr 04/30/19 04/30/19 04/30/19 14:44 17:00 21:00 Temperature 98.2 F 97.8 F Pulse Rate 79 102 H Respiratory 18 20 Rate Blood Pressure 102/63 118/68 O2 Sat by Pulse 100 Oximetry (%) 04/30/19 05/01/19 05/01/19 21:14 01:46 05:55 Temperature 97.9 F 98 F 99.4 F Pulse Rate 103 H 98 H 102 H Respiratory 20 20 22 H Rate Blood Pressure 103/64 108/70 108/75 O2 Sat by Pulse Oximetry (%) 05/01/19 10:00 Temperature 98.1 F Pulse Rate 98 H Respiratory 22 H Rate Blood Pressure 101/57 L O2 Sat by Pulse Oximetry (%) PHYSICAL EXAM: GENERAL: NAD CVS: +BRITTNY, RRR LUNGS: CTA B/L, NO WRR ABDOMEN: SOFT, SLIGHTLY DISTENDED, NABS EXT: 2+DPP, 1+ EDEMA BILATERAL LE Current Medications Generic Name Dose Route Start Last Admin Trade Name Freq PRN Reason Stop Dose Admin Acetaminophen 650 mg 05/01/19 01:47 05/01/19 01:56 Tylenol - PO 650 mg Q6H PRN Administration Fever Or Pain Apixaban 5 mg 04/22/19 10:00 05/01/19 09:13 Eliquis - PO 5 mg BID [facility] Administration Clopidogrel Bisulfate 75 mg 04/20/19 10:00 05/01/19 09:14 Plavix - PO 75 mg DAILY [facility] Administration Docusate Sodium 100 mg 04/21/19 03:21 Colace - PO DAILY PRN CONSTIPATION Furosemide 40 mg 04/30/19 10:00 05/01/19 09:13 Lasix Injection - IVPUSH 40 mg DAILY [facility] Administration Levothyroxine Sodium 75 mcg 04/20/19 07:00 05/01/19 06:27 Synthroid - PO 75 mcg DAILY@0700 [facility] Administration Lisinopril 2.5 mg 04/30/19 10:00 05/01/19 09:14 Prinivil PO 2.5 mg DAILY [facility] Administration Metoprolol Succinate 75 mg 04/20/19 18:30 05/01/19 09:13 Toprol Xl - PO 75 mg DAILY [facility] Administration Senna 1 tab 04/21/19 03:23 Senna - PO HS PRN CONSTIPATION Spironolactone 25 mg 05/01/19 10:00 05/01/19 09:13 Aldactone - PO 25 mg DAILY [facility] Administration Laboratory Results - last 24 hr 05/01/19 05/01/19 05/01/19 05:20 05:20 05:46 WBC 15.2 H RBC 3.86 Hgb 11.0 Hct 33.2 MCV 86.0 MCH 28.4 MCHC 33.0 RDW 15.4 Plt Count 226 MPV 8.0 Sodium 138 Potassium 3.8 Chloride 97 L Carbon Dioxide 35 H Anion Gap 7 L BUN 65.5 H Creatinine 0.9 Est GFR (CKD-EPI)AfAm 77.77 Est GFR (CKD-EPI)NonAf 67.10 POC Glucometer 129 Random Glucose 102 Calcium 8.9 Magnesium 1.5 L Total Bilirubin 1.2 H AST 26 ALT 25 Alkaline Phosphatase 109 Total Protein 6.5 Albumin 2.8 L ASSESSMENT AND PLAN: 61 year old female with PMHx HTN, CAD, HLD, CHF, DM2, Hypothyroidism presented with SOB and found to be in rapid atrial fibrillation and congestive heart failure. 1) New onset rapid afib -rate controlled on bb -eliquis -cardio eval appreciated -elevated trop secondary to demand ischemia due to rapid afib and chf exac 2) CAD s/p CABG/PCI -plavix/bb 3) Acute combined CHF exacerbation -improving -no won IV lasix 40 mg daily, can transition to PO -resumed aldactone -c/w bb -i/os and daily weights 4) LIANNA on CKD -nephro following -was refusing labs -monitor 5) HTN-continue with current meds 6) COPD-stable 7) Hypothyroidism-continue with synthroid 8) Leukocytosis -unclear etiology -ua and cxr ordered -afebrile -will monitor
--- NOTE | 2019-05-01 17:14 | PN ---
Progress Note, Physician History of Present Illness: Pt seen and examined at bedside. She is awake and alert. SHe denies shortness of breath. - Current Medication List Current Medications: Active Medications Acetaminophen (Tylenol -) 650 mg PO Q6H PRN PRN Reason: Fever Or Pain Last Admin: 05/01/19 14:08 Dose: 650 mg Apixaban (Eliquis -) 5 mg PO BID [facility] Last Admin: 05/01/19 09:13 Dose: 5 mg Clopidogrel Bisulfate (Plavix -) 75 mg PO DAILY [facility] Last Admin: 05/01/19 09:14 Dose: 75 mg Docusate Sodium (Colace -) 100 mg PO DAILY PRN PRN Reason: CONSTIPATION Furosemide (Lasix Injection -) 40 mg IVPUSH DAILY [facility] Last Admin: 05/01/19 09:13 Dose: 40 mg Levothyroxine Sodium (Synthroid -) 75 mcg PO DAILY@0700 [facility] Last Admin: 05/01/19 06:27 Dose: 75 mcg Lisinopril (Prinivil) 2.5 mg PO DAILY [facility] Last Admin: 05/01/19 09:14 Dose: 2.5 mg Metoprolol Succinate (Toprol Xl -) 75 mg PO DAILY [facility] Last Admin: 05/01/19 09:13 Dose: 75 mg Senna (Senna -) 1 tab PO HS PRN PRN Reason: CONSTIPATION Spironolactone (Aldactone -) 25 mg PO DAILY [facility] Last Admin: 05/01/19 09:13 Dose: 25 mg - Objective Vital Signs: Vital Signs Temperature 98.4 F 05/01/19 14:15 Pulse Rate 102 H 05/01/19 14:15 Respiratory Rate 22 H 05/01/19 14:15 Blood Pressure 112/62 05/01/19 14:15 O2 Sat by Pulse Oximetry (%) 98 05/01/19 09:00 Constitutional: Yes: Calm Eyes: Yes: Conjunctiva Clear HENT: Yes: Atraumatic Cardiovascular: Yes: S1, S2 Respiratory: Yes: CTA Bilaterally Gastrointestinal: Yes: Normal Bowel Sounds, Soft Musculoskeletal: Yes: WNL Edema: Yes Edema: LLE: 2+, RLE: 2+ Neurological: Yes: Oriented Psychiatric: Yes: Oriented Labs: CBC, BMP 05/01/19 05:20 05/01/19 05:20 Problem List - Problems (1) LIANNA (acute kidney injury) Code(s): N17.9 - ACUTE KIDNEY FAILURE, UNSPECIFIED (2) Rapid atrial fibrillation Code(s): I48.91 - UNSPECIFIED ATRIAL FIBRILLATION (3) CHF (congestive heart failure) Code(s): I50.9 - HEART FAILURE, UNSPECIFIED Qualifiers: Heart failure type: unspecified Heart failure chronicity: acute on chronic Qualified Code(s): I50.9 - Heart failure, unspecified (4) Anasarca Code(s): R60.1 - GENERALIZED EDEMA Assessment/Plan Current Medications Generic Name Dose Route Start Last Admin Trade Name Freq PRN Reason Stop Dose Admin Acetaminophen 650 mg 05/01/19 01:47 05/01/19 14:08 Tylenol - PO 650 mg Q6H PRN Administration Fever Or Pain Apixaban 5 mg 04/22/19 10:00 05/01/19 09:13 Eliquis - PO 5 mg BID RINA Administration Clopidogrel Bisulfate 75 mg 04/20/19 10:00 05/01/19 09:14 Plavix - PO 75 mg DAILY RINA Administration Docusate Sodium 100 mg 04/21/19 03:21 Colace - PO DAILY PRN CONSTIPATION Furosemide 40 mg 04/30/19 10:00 05/01/19 09:13 Lasix Injection - IVPUSH 40 mg DAILY RINA Administration Levothyroxine Sodium 75 mcg 04/20/19 07:00 05/01/19 06:27 Synthroid - PO 75 mcg DAILY@0700 [facility] Administration Lisinopril 2.5 mg 04/30/19 10:00 05/01/19 09:14 Prinivil PO 2.5 mg DAILY [facility]INA Administration Metoprolol Succinate 75 mg 04/20/19 18:30 05/01/19 09:13 Toprol Xl - PO 75 mg DAILY [facility]INA Administration Senna 1 tab 04/21/19 03:23 Senna - PO HS PRN CONSTIPATION Spironolactone 25 mg 05/01/19 10:00 05/01/19 09:13 Aldactone - PO 25 mg DAILY RINA Administration Impression 1. LIANNA 2. CHF 3. volume overload 4. HTN 5. HLD 6. DM 7. CAD 8. COPD 9. active smoker 10. anasarca 11. hypotension 12. hx of positive danielle Plan - renal function is improved - etiology of lianna cardiorenal type 1 - cont lasix and aldactone - monitor k and mag - compliance remains a problem with pt - cardio follow up - will need rheum eval for pos danielle, can be done as outpt
[2019-05-01] MEDS ORDERED: ACETAMINOPHEN 1000 MG/100 ML VIAL (NON FORMULARY) IVPB ONE (22:32)
[2019-05-02] MEDS: LEVOTHYROXINE NA 75 MCG TABLET (FP) PO SCH (06:28)
[2019-05-02] MEDS: metoPROLOL SUCCINATE 25 MG TAB.SR.24H (FP) PO SCH (11:54)
[2019-05-02] MEDS: APIXABAN 5 MG TABLET PO SCH (11:54)
[2019-05-02] MEDS: CLOPIDOGREL BISULFATE 75 MG TABLET (FP) PO SCH (11:54)
[2019-05-02] MEDS: SPIRONOLACTONE 25 MG TABLET (FP) PO SCH (11:54)
[2019-05-02] MEDS: FUROSEMIDE 40 MG/4 ML INJECTABLE VIAL IVPUSH SCH (11:55)
[2019-05-02] MEDS: LISINOPRIL 5 MG TABLET (FP) PO SCH (11:55)
--- NOTE | 2019-05-02 13:29 | PN ---
Progress Note, Physician History of Present Illness: Pt seen and examined at bedside. She is awake and alert. She denies shortness of breath. - Current Medication List Current Medications: Active Medications Acetaminophen (Tylenol -) 650 mg PO Q6H PRN PRN Reason: Fever Or Pain Last Admin: 05/01/19 21:23 Dose: 650 mg Apixaban (Eliquis -) 5 mg PO BID [facility] Last Admin: 05/02/19 11:54 Dose: 5 mg Clopidogrel Bisulfate (Plavix -) 75 mg PO DAILY [facility] Last Admin: 05/02/19 11:54 Dose: 75 mg Docusate Sodium (Colace -) 100 mg PO DAILY PRN PRN Reason: CONSTIPATION Furosemide (Lasix Injection -) 40 mg IVPUSH DAILY [facility] Last Admin: 05/02/19 11:55 Dose: 40 mg Levothyroxine Sodium (Synthroid -) 75 mcg PO DAILY@0700 [facility] Last Admin: 05/02/19 06:28 Dose: 75 mcg Lisinopril (Prinivil) 2.5 mg PO DAILY [facility] Last Admin: 05/02/19 11:55 Dose: 2.5 mg Metoprolol Succinate (Toprol Xl -) 75 mg PO DAILY [facility] Last Admin: 05/02/19 11:54 Dose: 75 mg Senna (Senna -) 1 tab PO HS PRN PRN Reason: CONSTIPATION Spironolactone (Aldactone -) 25 mg PO DAILY [facility] Last Admin: 05/02/19 11:54 Dose: 25 mg - Objective Vital Signs: Vital Signs Temperature 97.1 F L 05/02/19 10:00 Pulse Rate 119 H 05/02/19 10:00 Respiratory Rate 20 05/02/19 10:00 Blood Pressure 104/69 05/02/19 10:00 O2 Sat by Pulse Oximetry (%) 100 05/01/19 21:00 Constitutional: Yes: Calm Eyes: Yes: Conjunctiva Clear HENT: Yes: Atraumatic Cardiovascular: Yes: S1, S2 Respiratory: Yes: CTA Bilaterally Gastrointestinal: Yes: Soft Genitourinary: Yes: WNL Edema: Yes Edema: LLE: 1+, RLE: 1+ Neurological: Yes: Oriented Psychiatric: Yes: Oriented Labs: CBC, BMP 05/01/19 05:20 05/01/19 05:20 Problem List - Problems (1) LIANNA (acute kidney injury) Code(s): N17.9 - ACUTE KIDNEY FAILURE, UNSPECIFIED (2) Rapid atrial fibrillation Code(s): I48.91 - UNSPECIFIED ATRIAL FIBRILLATION (3) CHF (congestive heart failure) Code(s): I50.9 - HEART FAILURE, UNSPECIFIED Qualifiers: Heart failure type: unspecified Heart failure chronicity: acute on chronic Qualified Code(s): I50.9 - Heart failure, unspecified (4) Anasarca Code(s): R60.1 - GENERALIZED EDEMA Assessment/Plan Current Medications Generic Name Dose Route Start Last Admin Trade Name Freq PRN Reason Stop Dose Admin Acetaminophen 650 mg 05/01/19 01:47 05/01/19 21:23 Tylenol - PO 650 mg Q6H PRN Administration Fever Or Pain Apixaban 5 mg 04/22/19 10:00 05/02/19 11:54 Eliquis - PO 5 mg BID RINA Administration Clopidogrel Bisulfate 75 mg 04/20/19 10:00 05/02/19 11:54 Plavix - PO 75 mg DAILY RINA Administration Docusate Sodium 100 mg 04/21/19 03:21 Colace - PO DAILY PRN CONSTIPATION Furosemide 40 mg 04/30/19 10:00 05/02/19 11:55 Lasix Injection - IVPUSH 40 mg DAILY [facility] Administration Levothyroxine Sodium 75 mcg 04/20/19 07:00 05/02/19 06:28 Synthroid - PO 75 mcg DAILY@0700 [facility] Administration Lisinopril 2.5 mg 04/30/19 10:00 05/02/19 11:55 Prinivil PO 2.5 mg DAILY [facility] Administration Metoprolol Succinate 75 mg 04/20/19 18:30 05/02/19 11:54 Toprol Xl - PO 75 mg DAILY [facility] Administration Senna 1 tab 04/21/19 03:23 Senna - PO HS PRN CONSTIPATION Spironolactone 25 mg 05/01/19 10:00 05/02/19 11:54 Aldactone - PO 25 mg DAILY [facility] Administration Impression 1. LIANNA 2. CHF 3. volume overload 4. HTN 5. HLD 6. DM 7. CAD 8. COPD 9. active smoker 10. anasarca 11. hypotension 12. hx of positive danielle Plan - renal function stable - cont diuretics - monitor lytes - 2 gram sodium diet - etiology of lianna cardiorenal type 1 - cardio follow up - will need rheum eval for pos danielle, can be done as outpt
--- NOTE | 2019-05-02 14:52 | PN ---
Teaching Attending Note Name of Resident: Vivian Germain ATTENDING PHYSICIAN STATEMENT I saw and evaluated the patient. I reviewed the resident's note and discussed the case with the resident. I agree with the resident's findings and plan as documented. SUBJECTIVE: No fever or chills. pain every where. No SOB OBJECTIVE: NAD, flat affect. Avoids eye contact CV: RRR, no MRG. + JVD in sitting position Lungs: fine crackles at bases. Ext: 1+ pitting edema on legs ASSESSMENT AND PLAN: 61 year old female, with a significant past medical history of hypertension, hypercholesterolemia, CAD, [place](X2, s/p defibrillator/pacemaker and CABG), CHF, DM II, kidney stones, peripheral neuropathy, hypothyroidism, and non compliance who presneted with SOB and was found to have A fib with RVR and Acute CHF 1- New onset A fib: rate controlled -cont BB and eliquis 2- Acute on chronic systolic CHF: - d/w card . switch to polasix 80 mg daily - dc lisinopril and resume decreased dose of Entresto. - cont spironolactone - cont BB. 3- LIANNA on CKD: due to cardiorenal syndrome. resolved - cont diuresis with po lasix 4-leukocytosis: no source of infection . refused repeat CBC , refused UA . No urianry sx ] dc to rehab
--- NOTE | 2019-05-02 15:51 | DS ---
Physical Exam: SUBJECTIVE: Patient seen and examined. Reports improvement today. She still has generalized body pain. Appears less volume overloaded. Asymptomatic and afebrile otherwise. Denies f/c/n/v/d/chest pain. OBJECTIVE: Vital Signs Period Temp Pulse Resp BP Sys/Santoro Pulse Ox Last 24 Hr 97.1 F-99.0 F 91-119 18-22 90-113/43-69 100 PHYSICAL EXAM GENERAL: The patient is awake, alert, and fully oriented. Mild distress due to pain. EYES: PERRL, extraocular movements intact, sclera anicteric ENT: oropharynx clear without exudates, moist mucous membranes. NECK: full range of motion, supple. LUNGS: Breath sounds equal, clear to auscultation bilaterally, no wheezes, mild crackles, HEART: Regular rate and irregular rhythm, S1, S2 without murmur, rub or gallop. ABDOMEN: Soft but tender, distended, normoactive bowel sounds, no guarding, no rebound EXTREMITIES: UE: RUE 1+ edema, pitting- improved LE: 2+ pulses, warm, Edema b/l LE improved NEUROLOGICAL: Cranial nerves II through XII grossly intact. PSYCH: Normal mood, normal affect. SKIN: Warm, dry, normal turgo LABS CBC,CMP WBC 15.2 K/mm3 (4.0-10.0) H 05/01/19 05:20 RBC 3.86 M/mm3 (3.60-5.2) 05/01/19 05:20 Hgb 11.0 GM/dL (10.7-15.3) 05/01/19 05:20 Hct 33.2 % (32.4-45.2) 05/01/19 05:20 MCV 86.0 fl (80-96) 05/01/19 05:20 MCH 28.4 pg (25.7-33.7) 05/01/19 05:20 MCHC 33.0 g/dl (32.0-36.0) 05/01/19 05:20 RDW 15.4 % (11.6-15.6) 05/01/19 05:20 Plt Count 226 K/MM3 (134-434) 05/01/19 05:20 MPV 8.0 fl (7.5-11.1) 05/01/19 05:20 Absolute Neuts (auto) 3.7 K/mm3 (1.5-8.0) 04/19/19 12:30 Neutrophils % 64.1 % (42.8-82.8) 04/19/19 12:30 Lymphocytes % 17.9 % (8-40) D 04/19/19 12:30 Monocytes % 17.5 % (3.8-10.2) H 04/19/19 12:30 Eosinophils % 0.0 % (0-4.5) 04/19/19 12:30 Basophils % 0.5 % (0-2.0) 04/19/19 12:30 Nucleated RBC % 1 % (0-0) H 04/19/19 12:30 Sodium 138 mmol/L (136-145) 05/01/19 05:20 Potassium 3.8 mmol/L (3.5-5.1) 05/01/19 05:20 Chloride 97 mmol/L (98-107) L 05/01/19 05:20 Carbon Dioxide 35 mmol/L (21-32) H 05/01/19 05:20 Anion Gap 7 MMOL/L (8-16) L 05/01/19 05:20 BUN 65.5 mg/dL (7-18) H 05/01/19 05:20 Creatinine 0.9 mg/dL (0.55-1.3) 05/01/19 05:20 Est GFR (CKD-EPI)AfAm 77.77 05/01/19 05:20 Est GFR (CKD-EPI)NonAf 67.10 05/01/19 05:20 POC Glucometer 129 UNITS (80-120) 05/01/19 05:46 Random Glucose 102 mg/dL (74-106) 05/01/19 05:20 Calcium 8.9 mg/dL (8.5-10.1) 05/01/19 05:20 Phosphorus 3.3 mg/dL (2.5-4.9) 04/29/19 06:35 Magnesium 1.5 mg/dL (1.8-2.4) L 05/01/19 05:20 Total Bilirubin 1.2 mg/dL (0.2-1) H 05/01/19 05:20 AST 26 U/L (15-37) 05/01/19 05:20 ALT 25 U/L (13-61) 05/01/19 05:20 Alkaline Phosphatase 109 U/L (45-117) 05/01/19 05:20 Creatine Kinase 125 U/L (26-192) 04/20/19 05:50 Creatine Kinase Index 2.9 % (0.0-5.0) 04/19/19 20:40 CK-MB (CK-2) 4.4 ng/mL (0.5-3.6) H 04/19/19 20:40 Troponin I 0.12 ng/ml (0.00-0.05) H 04/20/19 05:50 B-Natriuretic Peptide 6552.5 pg/ml (5-125) H 04/19/19 12:30 Total Protein 6.5 g/dl (6.4-8.2) 05/01/19 05:20 Albumin 2.8 g/dl (3.4-5.0) L 05/01/19 05:20 Lipase 37 U/L (73-393) L 04/19/19 20:40 Current Medications Acetaminophen (Tylenol -) 650 mg PO Q6H PRN PRN Reason: Fever Or Pain Last Admin: 05/01/19 21:23 Dose: 650 mg Apixaban (Eliquis -) 5 mg PO BID [facility] Last Admin: 05/02/19 11:54 Dose: 5 mg Clopidogrel Bisulfate (Plavix -) 75 mg PO DAILY [facility] Last Admin: 05/02/19 11:54 Dose: 75 mg Docusate Sodium (Colace -) 100 mg PO DAILY PRN PRN Reason: CONSTIPATION Furosemide (Lasix Injection -) 40 mg IVPUSH DAILY [facility] Last Admin: 05/02/19 11:55 Dose: 40 mg Levothyroxine Sodium (Synthroid -) 75 mcg PO DAILY@0700 [facility] Last Admin: 05/02/19 06:28 Dose: 75 mcg Lisinopril (Prinivil) 2.5 mg PO DAILY [facility] Last Admin: 05/02/19 11:55 Dose: 2.5 mg Metoprolol Succinate (Toprol Xl -) 75 mg PO DAILY [facility] Last Admin: 05/02/19 11:54 Dose: 75 mg Senna (Senna -) 1 tab PO HS PRN PRN Reason: CONSTIPATION Spironolactone (Aldactone -) 25 mg PO DAILY [facility] Last Admin: 05/02/19 11:54 Dose: 25 mg Microbiology 04/19/19 20:40 Urine - Urine Clean Catch Urine Culture - Final NO GROWTH OBTAINED HOSPITAL COURSE: Date of Admission:04/19/19 63 y/o F, pmh of Severe systolic HFrEF s/p ICD, A. Fib, HTN, HLD, CAD s/p CABG and PCI, s/p NSTEMI, HTN, DM, COPD(home 5L), hypothyroidism, presents with worsening abdominal pain, and distention of 3 day duration is admitted for acute CHF exacerbation and A-fib w/ RVR. Pt has been admitted several times already this year for heart failure; she has been scheduled in the past for evaluation by heart failure group as an outpatient, but has yet to attend. Upon admission, pt was extremely fluid overloaded and CT a/p showed significant ascites and a BNP of 6552. EKG at the time showed atrial fibrillation + tachycardic at 142 bpm, borderline interval abnormalities, borderline QRS at 96 ms, ST and T wave segments and morphology normal. Nonspecific T wave abnormalities partial LBBB, low voltage. Therefore, she was started on IV heparin and IV metoprolol for new onset of rapid A.fib by Dr. Huntley. For the fluid overload, she was restarted on spironolactone 25 mg, Entresto decreased to 24-26mg and lasix 60 BID, which was then increased to 80 BID. Spironolactone was then held to monitor renal response to increased lasix. As the diuretics began to improve pt's volume overload, it was decreased back to 40 daily. Pt was also restarted on Spironolactone as she was developing hypokalemia as well. Pt's was optimized the best she can be and discharged home on new medication regimes. She was discharged on PO lasix 80mg daily, lisinopril was d/elle and entresto was restarted, spiranolactone, eliquis and toprol were continued. EKG atrial fibrillation +tachycardic at 142 bpm, borderline interval abnormalities, borderline QRS at 96 ms, ST and T wave segments and morphology normal. Nonspecific T wave abnormalities partial LBBB, low voltage CT with significant anasarca and ascites much increased compared to previous baseline with cardiomegaly and small left-sided pleural effusion, liver enlargement. Bilateral renal cysts and calcifications within the uterus consistent with her fibroids. 04/19/19- Chest x-ray with enlarged heart, pulmonary vascular congestion centrally blunting at the left costophrenic angle. Pacemaker in place US RUE- no dvt Date of Discharge: 05/02/19 Minutes to complete discharge: 35 Discharge Summary Problems reviewed: Yes Reason For Visit: ACUTE ON CHRONIC CONGESTIVE HEART FAILURE Current Active Problems LIANNA (acute kidney injury) (Acute) Ascites (Acute) PAF (paroxysmal atrial fibrillation) (Acute) Rapid atrial fibrillation (Acute) Subendocardial ischemia (Acute) Acute on chronic systolic and diastolic heart failure, NYHA class 1 (Chronic) CHF (congestive heart failure) (Chronic) Condition: Improved - Instructions Diet, Activity, Other Instructions: You came to the hospital with complaints of abdominal pain and were found to be in new-onset atrial fibrillation and we had to start you on blood thinners. While you were here, your kidney numbers were elevated likely secondary to your heart failure. We gave you IV medications to decrease the fluid in your legs and abdomen, your symptoms improved, and you were stable to be discharged to a halfway facility. Please resume all of your home medications in addition: we started you on a new medication, the blood thinner Eliquis 5mg twice a day ( please monitor for signs of bleeding i.e. bleeding in stool, bleeding from gums , cuts) Please take Metoprolol 75mg daily (we changed this dose which was previously 25mg three times a day) Please continue taking Entresto daily however we lowered the dose PLEASE CONTINUE TAKING ALL OF YOUR PREVIOUSLY PRESCRIBED MEDICATIONS THIS IS VERY IMPORTANT Please weigh yourself and monitor your volume status Please follow up with Dr. Fererr within one week and have your lab work (BMP) repeated Please follow up with Dr. Cage within one week Please follow up with Dr. Lowry within one week follow up with Dr. Barriga for evaluation for elevated AMILCAR ( blood work ) *if you begin to experience worsening chest pains, shortness of breath, abdominal pain, increased swelling, fevers please return to the emergency room immediately Referrals: Parrish Ferrer MD [Primary Care Provider] - Johnnie Barriga MD [Staff Physician] - 2 Weeks Dick Cage MD [Staff Physician] - 1 Week Johan Lowry MD [Staff Physician] - Disposition: INTERMEDIATE FACILITY - Home Medications Comprehensive Discharge Medication List: Ambulatory Orders Clopidogrel Bisulfate [Plavix -] 75 mg PO DAILY #30 tablet 08/02/17 Levothyroxine [Synthroid -] 75 mcg PO DAILY@0700 30 Days #30 tablet 08/02/17 Furosemide [Lasix] 80 mg PO DAILY #30 tablet 10/22/18 Spironolactone 25 mg PO DAILY 12/09/18 Apixaban [Eliquis -] 5 mg PO BID #60 tablet 05/02/19 Metoprolol Succinate [Toprol XL -] 75 mg PO DAILY #30 tab.sr.24h 05/02/19 Sacubitril/Valsartan [Entresto 24 mg-26 mg Tablet] 1 each PO DAILY #30 tablet - Discharge Referral Referred to [facility] No ATTENDING PHYSICIAN STATEMENT I saw and evaluated the patient. I reviewed the resident's note and discussed the case with the resident. I agree with the resident's findings and plan as documented. SUBJECTIVE: OBJECTIVE: ASSESSMENT AND PLAN:
[2019-05-02 18:05] VITALS: BP 111/76; PULSE 110; TEMP 98
[2019-05-03 01:19] VITALS: BMI 31.0
== END 2019-05-02 22:00 | DRG 291 ==
LOC: JER 11:19 → JERBED 14:11 → J4W 04-20 08:03
PROVIDERS: ADMIT Internal Medicine; ATTEND Internal Medicine
DX: I13.0 Hypertensive heart and chronic kidney disease with heart failure and stage 1 through stage 4 chronic kidney disease, or unspecified chronic kidney disease (principal); I50.43 Acute on chronic combined systolic (congestive) and diastolic (congestive) heart failure; R18.8 Other ascites; N17.9 Acute kidney failure, unspecified; I24.8 Other forms of acute ischemic heart disease; I44.7 Left bundle-branch block, unspecified; I48.91 Unspecified atrial fibrillation; J44.9 Chronic obstructive pulmonary disease, unspecified; I25.10 Atherosclerotic heart disease of native coronary artery without angina pectoris; E78.5 Hyperlipidemia, unspecified; I25.2 Old myocardial infarction; E03.9 Hypothyroidism, unspecified; E11.42 Type 2 diabetes mellitus with diabetic polyneuropathy; I27.20 Pulmonary hypertension, unspecified; E11.22 Type 2 diabetes mellitus with diabetic chronic kidney disease; F32.9 Major depressive disorder, single episode, unspecified; N18.9 Chronic kidney disease, unspecified; M54.5 Low back pain; R60.1 Generalized edema; K83.4 Spasm of sphincter of Oddi; E87.6 Hypokalemia; E83.42 Hypomagnesemia; D64.9 Anemia, unspecified; E87.70 Fluid overload, unspecified; G47.30 Sleep apnea, unspecified; D25.9 Leiomyoma of uterus, unspecified; N28.1 Cyst of kidney, acquired; E66.9 Obesity, unspecified; D72.829 Elevated white blood cell count, unspecified; Z68.31 Body mass index [BMI] 31.0-31.9, adult; Z99.81 Dependence on supplemental oxygen; Z95.5 Presence of coronary angioplasty implant and graft; Z95.1 Presence of aortocoronary bypass graft; Z96.649 Presence of unspecified artificial hip joint; Z95.0 Presence of cardiac pacemaker
CPT/HCPCS: 36415; 71045-TC-FY; 74176-TC; 76705-TC; 76775-TC; 76856-TC; 80048; 80053; 81003; 82436; 82550; 82553; 82565; 82962; 83690; 83735; 83880; 84100; 84133; 84300; 84484; 85025; 85027; 85730; 87086; 93005; 93010; 93971; 97116-GP; 97161-GP; 99284-25; J0131; J1644; J7030

== ENCOUNTER 2019-05-13 22:19 | Inpatient (IN) | payer OTHER, BC ==
--- NOTE | 2019-05-13 22:37 | PDOC ---
History of Present Illness - General Chief Complaint: Abnormal Lab Results (Outside) Stated Complaint: ABNORMAL LABS Time Seen by Provider: 05/13/19 22:31 - History of Present Illness Initial Comments: The pt is a 63F w/ a history of HFrEF s/p ICD, A-fib, HTN, HLD, CAD s/p CABG and PCI, s/p NSTEMI, HTN, T2DM, COPD (5L [place]), hypothyroidism who presents from [facility] for evaluation of LIANNA and [facility] reports they are out of fluids to give patient. Baseline Cr 0.9, Cr at [facility] today 2.4. History limited 2/2 pt participation, however she reports generalized fatigue and chronic foot pain. Pt reports whole body pain Reports intermittent SOB, no acute change Denies chest pain, current SOB, N/V, dysuria, hematuria, diarrhea, or changes in sensation 05/13/19 22:37 Past History - Past Medical History Allergies/Adverse Reactions: Allergies Allergy/AdvReac Type Severity Reaction Status Date / Time aspirin Allergy Mild Rash Verified 05/13/19 22:31 banana Allergy Hives Verified 05/13/19 22:31 tomato Allergy Verified 05/13/19 22:31 Home Medications: Ambulatory Orders Clopidogrel Bisulfate [Plavix -] 75 mg PO DAILY #30 tablet 08/02/17 Levothyroxine [Synthroid -] 75 mcg PO DAILY@0700 30 Days #30 tablet 08/02/17 Furosemide [Lasix] 80 mg PO DAILY #30 tablet 10/22/18 Spironolactone 25 mg PO DAILY 12/09/18 Apixaban [Eliquis -] 5 mg PO BID #60 tablet 05/02/19 Metoprolol Succinate [Toprol XL -] 75 mg PO DAILY #30 tab.sr.24h 05/02/19 Sacubitril/Valsartan [Entresto 24 mg-26 mg Tablet] 1 each PO DAILY #30 tablet Anemia: No Asthma: Yes Cancer: No Cardiac Disorders: Yes (AICD,CT 2013, stents, CABG) CVA: No COPD: Yes CHF: Yes Dementia: No Diabetes: Yes GI Disorders: Yes (PEG tube) Disorders: No HTN: Yes Hypercholesterolemia: Yes Kidney Stones: Yes Liver Disease: Yes Psychiatric Problems: Yes (depression.) Seizures: No Thyroid Disease: Yes (Hypo) - Surgical History Abdominal Surgery: Yes Appendectomy: No Cardiac Surgery: Yes (bypass,stent x2, CABG 2003, ICD/Pacer 12/02) Cholecystectomy: Yes (04/2016) Lung Surgery: (cabg 2003) Neurologic Surgery: No Orthopedic Surgery: Yes (Right THR) - Immunization History Immunization Up to Date: Yes - Psycho Social/Smoking Cessation Hx Smoking Status: No Smoking History: Unknown if ever smoked Have you smoked in the past 12 months: No Number of Cigarettes Smoked Daily: 2 If you are a former smoker, when did you quit?: 3 months ago Information on smoking cessation initiated: No 'Breaking Loose' booklet given: 10/17/18 Hx Alcohol Use: No Drug/Substance Use Hx: No Substance Use Type: None Hx Substance Use Treatment: No Review of Systems - Review of Systems Able to Perform ROS?: Yes Comments:: GENERAL/CONSTITUTIONAL: No fever or chills HEAD, EYES, EARS, NOSE AND THROAT: No change in vision. No change in hearing. No sore throat CARDIOVASCULAR: No chest pain RESPIRATORY: Denies cough, hemoptysis GASTROINTESTINAL: No nausea, vomiting, diarrhea or constipation GENITOURINARY: No dysuria, frequency, or change in urination MUSCULOSKELETAL: +chronic back pain, lower extremity pain SKIN: No rash NEUROLOGIC: No headache, vertigo, loss of consciousness, or change in strength/ sensation ENDOCRINE: No increased thirst. No abnormal weight change ALLERGIC/IMMUNOLOGIC: No hives or skin allergy 05/13/19 22:56 Is the patient limited Maori proficient: No *Physical Exam - Vital Signs Last Vital Signs Temp Pulse Resp BP Pulse Ox 97.3 F L 115 H 16 90/49 L 100 05/13/19 22:20 05/13/19 22:20 05/13/19 22:20 05/13/19 22:20 05/13/19 22:20 - Physical Exam GENERAL: Awake, alert, and oriented to person/place/time, in no acute distress HEAD: No signs of trauma, normocephalic, atraumatic EYES: PERRLA, EOMI, sclera anicteric, conjunctiva clear ENT: Hearing grossly normal, nares patent, oropharynx clear without exudates. Moist mucosa LUNGS: Poor inspiratory effort, decreased breath sounds at the bases HEART: Tachycardic rate and irregularly irregular rhythm, normal S1 and S2, peripheral pulses normal and equal bilaterally ABDOMEN: Soft, protuberant, normoactive bowel sounds. No guarding, no rebound EXTREMITIES: BLE edema to knee, Moves all extremities independently NEUROLOGICAL: Cranial nerves II through XII grossly intact. Normal speech, no focal sensorimotor deficits SKIN: BLE chronic venous stasis changes, warm, dry 05/13/19 22:56 ED Treatment Course - LABORATORY CBC & Chemistry Diagram: 05/13/19 22:50 05/13/19 22:50 - RADIOLOGY Radiology Studies Ordered: Category Date Time Status CHEST X-RAY PORTABLE* [RAD] Stat Radiology 05/13/19 22:34 Ordered Medical Decision Making - Medical Decision Making The pt is a 63F w/ a history of HFrEF s/p ICD, A-fib, HTN, HLD, CAD s/p CABG and PCI, s/p NSTEMI, HTN, T2DM, COPD (5L [place]), hypothyroidism who presents from [facility] for evaluation of LIANNA ED Course CMP, CBC, BNP, Mg, UA, UCx ECG CXR Labs pending ECG w/ a-fib; HR 124; poor baseline, no ANAY 05/13/19 23:01 Leukocytosis to 11.3 noted, pt afebrile Anemia noted, no indication to transfuse at this time 05/13/19 23:28 Labs pending Pt signed out to Dr. Madrigal Plan for likely admission for LIANNA given Cr of 2.4 at [facility] 05/13/19 23:59 Discharge - Discharge Information Problems reviewed: Yes Clinical Impression/Diagnosis: LIANNA (acute kidney injury) - Follow up/Referral - Patient Discharge Instructions - Post Discharge Activity
--- NOTE | 2019-05-13 22:39 | PDOC ---
Attending Attestation - Resident Resident Name: Herrera Joy - ED Attending Attestation I have performed the following: I have examined & evaluated the patient, The case was reviewed & discussed with the resident, I agree w/resident's findings & plan - HPI HPI: 05/13/19 22:43 see resident hpi - Physicial Exam PE: 05/13/19 22:43 agree with resident exam - Medical Decision Making 05/13/19 22:43 63-year-old female sent from a nursing home facility due to acute elevation of BUN and creatinine Patient is a poor historian and cannot provide specific complaints or history Plan for repeat labs and admission to medical service for further management
[2019-05-13 23:00] LABS: BASO % 0.3 % (0-2.0); HEMATOCRIT 30.2 % (32.4-45.2); HEMOGLOBIN 9.7 GM/dL (10.7-15.3); LYMPH % 6.4 % (8-40); MCH 27.7 pg (25.7-33.7); MCHC 32.1 g/dl (32.0-36.0); MEAN CELL VOLUME 86.2 fl (80-96); MEAN PLT VOLUME 7.6 fl (7.5-11.1); MONO % 8.5 % (3.8-10.2); NEUT % 84.8 % (42.8-82.8); PLATELET COUNT 381 K/MM3 (134-434); RDW 16.1 % (11.6-15.6); WHITE BLOOD COUNT 11.3 K/mm3 (4.0-10.0)
[2019-05-13] MEDS ORDERED: SODIUM CHLORIDE 0.9% 500 ML INFUS.BAG IV ONE (23:27)
[2019-05-14 00:15] LABS: N-TERMINAL BNP 14940.3 pg/ml (5-125)
[2019-05-14 00:36] LABS: ALBUMIN 2.2 g/dl (3.4-5.0); BILIRUBIN,TOTAL 0.8 mg/dL (0.2-1); CALCIUM 8.6 mg/dL (8.5-10.1); CREATININE 1.9 mg/dL (0.55-1.3); MAGNESIUM 2.4 mg/dL (1.8-2.4); POTASSIUM 5.3 mmol/L (3.5-5.1)
[2019-05-14 00:41] LABS: BLOOD UREA NITROGEN 102.2 mg/dL (7-18)
--- NOTE | 2019-05-14 01:01 | PDOC ---
*Physical Exam - Vital Signs Last Vital Signs Temp Pulse Resp BP Pulse Ox 98.2 F 102 H 20 92/51 L 100 05/14/19 00:50 05/14/19 00:50 05/14/19 00:50 05/14/19 00:50 05/14/19 00:50 ED Treatment Course - LABORATORY CBC & Chemistry Diagram: 05/13/19 22:50 05/13/19 23:30 - ADDITIONAL ORDERS Additional order review: Laboratory Results 05/13/19 05/13/19 05/13/19 23:30 23:30 22:50 Sodium 134 L Cancelled Potassium 5.3 H Cancelled Chloride 97 L Cancelled Carbon Dioxide 28 Cancelled Anion Gap 9 Cancelled BUN 102.2 H Cancelled Creatinine 1.9 H Cancelled Est GFR (CKD-EPI)AfAm 31.51 Cancelled Est GFR (CKD-EPI)NonAf 27.19 Cancelled Random Glucose 117 H Cancelled Calcium 8.6 Cancelled Magnesium 2.4 Cancelled Total Bilirubin 0.8 Cancelled AST 21 Cancelled ALT 19 Cancelled Alkaline Phosphatase 175 H Cancelled Troponin I 0.05 Cancelled B-Natriuretic Peptide 74451.3 H Cancelled Total Protein 6.0 L Cancelled Albumin 2.2 L Cancelled 05/13/19 22:50 RBC 3.50 L MCV 86.2 MCHC 32.1 RDW 16.1 H MPV 7.6 Neutrophils % 84.8 H D Lymphocytes % 6.4 L D Monocytes % 8.5 Eosinophils % 0.0 Basophils % 0.3 - Medications Given in the ED: ED Medications Discontinued Medications Generic Name Dose Route Start Last Admin Trade Name Freq PRN Reason Stop Dose Admin Sodium Chloride 250 ml 05/13/19 23:27 05/14/19 00:31 Normal Saline - IV 05/13/19 23:28 250 ml ONCE ONE Administration Medical Decision Making - Medical Decision Making 05/14/19 01:00 Left EJ plaCED. prerenal LIANNA + CHF exacerbation bnp higher than ever. Accepted to tele inpatient Discharge - Discharge Information Problems reviewed: Yes Clinical Impression/Diagnosis: LIANNA (acute kidney injury) Condition: Guarded - Admission Yes - Follow up/Referral - Patient Discharge Instructions - Post Discharge Activity
--- NOTE | 2019-05-14 01:42 | PN ---
Teaching Attending Note Name of Resident: Lory Marcus ATTENDING PHYSICIAN STATEMENT I saw and evaluated the patient. I reviewed the resident's note and discussed the case with the resident. I agree with the resident's findings and plan as documented. SUBJECTIVE: Patient is a 63 year old woman with a PMH of HFrEF (s/p AICD), Afib, HTN, HLD, CAD (s/p CABG and PCI), NSTEMI, HTN, NIDDM, COPD (On Home O2 5L NC), Hypothyroidism who presents from [facility] for evaluation of LIANNA and NH reports they are out of fluids to give patient. Baseline serum creatinine was 0.9 and creatinine at [facility] today was 2.4 mg/dL. Patient reports generalized fatigue, chronic foot pain and whole body pain. Also reports intermittent SOB, but denies chest pain, current SOB, nausea, dysuria, hematuria, diarrhea, or changes in sensation. No recent travel or obvious sick contacts. Denies alcohol or illicit drug use. OBJECTIVE: Alert and moaning Vital Signs Period Temp Pulse Resp BP Sys/Santoro Pulse Ox Last 24 Hr 97.3 F-98.2 F 102-115 16-20 90-92/49-51 100-100 HEENT: No Jaundice, eye redness or discharge, PERRLA, EOMI. Normocephalic, atraumatic. External ears are normal and hearing is grossly intact. No nasal discharge. Neck: Supple, nontender. No palpable adenopathy or thyromegaly. No JVD Chest: Good effort. Diminished breath sounds. Clear to percussion. Heart: Regular. No S3, rub or murmur Abdomen: Not distended, soft, nontender and no HSM. No rebound or guarding. Normal bowel sounds. Ext: Peripheral pulses intact. Anasarca. Skin: Warm and dry. No petechiae, rash or ecchymosis. Neuro: Alert. Intermittently confused. Oriented x3. CN 2-12 grossly intact. Sensation grossly intact in all four extremities and DTR are symmetric. Psych: Appropriate mood and affect. Good insight. Home Medications Medication Instructions Recorded Clopidogrel Bisulfate [Plavix -] 75 mg PO DAILY #30 tablet 08/02/17 Levothyroxine [Synthroid -] 75 mcg PO DAILY@0700 30 Days #30 08/02/17 tablet Spironolactone 25 mg PO DAILY 12/09/18 Apixaban [Eliquis -] 5 mg PO BID #60 tablet 05/02/19 Acetaminophen [Tylenol] 650 mg PO Q6H 05/14/19 Furosemide [Lasix] 40 mg PO DAILY 05/14/19 Metoprolol Succinate [Toprol XL -] 75 mg PO DAILY 05/14/19 Polyethylene Glycol 3350 [Miralax 17 gm PO DAILY 05/14/19 (For Daily Use) -] Sacubitril/Valsartan [Entresto 24 1 each PO BID 05/14/19 mg-26 mg Tablet] Abnormal Lab Results 05/13/19 05/13/19 05/13/19 22:50 23:30 23:30 WBC 11.3 H RBC 3.50 L Hgb 9.7 L Hct 30.2 L RDW 16.1 H Absolute Neuts (auto) 9.6 H Neutrophils % 84.8 H D Lymphocytes % 6.4 L D Sodium 134 L Potassium 5.3 H Chloride 97 L BUN 102.2 H Creatinine 1.9 H Random Glucose 117 H Alkaline Phosphatase 175 H B-Natriuretic Peptide 09518.3 H Total Protein 6.0 L Albumin 2.2 L ASSESSMENT AND PLAN: 1. CHF Exacerbaation - Precipitated by several factors including inadequate diuresis. No obvious source of infection to explain leukocytosis. Urinalysis is pending. CXR shows pulmonary vascular congestion, cardiomegly and obscured left costophrenic angle. 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 Patient's BP is dropping to systolic of 86 mmHg - will hold BP lowering drugs and once BP improves will give IV lasix. Will monitor daily weight and restrict dietary salt intake. EKG shows Afib with rate of 108, RAD, prolonged QTc. Will treat with tylenol for generalized aches and pain. Consult cardiology. Will continue comprehensive care for all of patients comorbid conditions. 2. Hypoalbuminemia - Possibly due to combined effects of proteinuria, malnutrition and inflammation associated with comorbid chronic conditions. Will ensure adequate dietary protein intake and also consult inclusion manager. 3. DM Implement sliding scale insulin regimen. Provide comprehensive diabetes care with patient teaching and counseling about the importance of adherence to prescribed diabetes regimen, euglycemia, eye care and foot care. 4. Tobacco Use Counseled on risks associated with tobacco use. We will provide patient all the necessary assistance to facilitate smoking cessation and prescribe Nicotine patch. 5. CKD with superimposed LIANNA - Has risk factors for CKD and may have nephrosis. LIANNA likely due to diuresis and low albumin. Will hold diuretics. Consult nephrology and avoid nephrotoxic agents such as NSAIDS, aminoglycosides, contrast dyes and certain Alternative medicine products. 6. Anemia - Likely multifactorial. Will do basic anemia work up including serial stool guaiacs, reticulocyte count and iron studies. Would benefit from Procrit therapy once iron replete. 7. Obesity Counseled on the risks associated with obesity. Will provide patient all the necessary assistance, counseling and positive reinforcement to facilitate weight loss. Consult inclusion manager. 8. Hypertension - Hold antihypertesnive drugs due to hypotension. Restart suitable outpatient antihypertensive drugs when clinically appropriate. Revise regimen to ensure [id number] excellent BP control and gambling counsellor patient on the injurious effects of uncontrolled hypertension. Nonpharmacologic measures to control hypertension like weight loss, salt restriction and exercise discussed. Importance of adherence to treatment regimen and attainment of normotension emphasized. 9. DVT prophylaxis - On Eliquis for Afib 10. Advance directives - Full code
--- NOTE | 2019-05-14 01:46 | HP ---
CHIEF COMPLAINT: PCP: HISTORY OF PRESENT ILLNESS: 63 yo F PMH HFrEF(s/p ICD), A-fib, HTN, HLD, CAD (s/p CABG and PCI), s/p NSTEMI , T2DM, COPD (5L NC), hypothyroidism who presents from [facility] for evaluation of LIANNA. Cr at [facility] today was measured at 2.4. Pt states she does not know why she was sent to the hospital from [facility]. she states her only complaint is toe pain. she denies cp, sob, palpitations, n/v. pt is aggravated and does not wish to answer further questions ER course was notable for: (1)250 ml IVF bolus (2)CXR remarkable for cardiomegaly and increased congestive changes (3) Recent Travel:denies PAST MEDICAL HISTORY: HFrEF(s/p ICD), A-fib, HTN, HLD, CAD (s/p CABG and PCI), s /p NSTEMI, T2DM, COPD (5L NC), hypothyroidism PAST SURGICAL HISTORY: Social History: Smoking:denies Alcohol:denies Drugs: denies Allergies aspirin Allergy (Mild, Verified 05/13/19 22:31) Rash banana Allergy (Verified 05/13/19 22:31) Hives tomato Allergy (Verified 05/13/19 22:31) HOME MEDICATIONS: Home Medications Medication Instructions Recorded Clopidogrel Bisulfate [Plavix -] 75 mg PO DAILY #30 tablet 08/02/17 Levothyroxine [Synthroid -] 75 mcg PO DAILY@0700 30 Days #30 08/02/17 tablet Spironolactone 25 mg PO DAILY 12/09/18 Apixaban [Eliquis -] 5 mg PO BID #60 tablet 05/02/19 Acetaminophen [Tylenol] 650 mg PO Q6H 05/14/19 Furosemide [Lasix] 40 mg PO DAILY 05/14/19 Metoprolol Succinate [Toprol XL -] 75 mg PO DAILY 05/14/19 Polyethylene Glycol 3350 [Miralax 17 gm PO DAILY 05/14/19 (For Daily Use) -] Sacubitril/Valsartan [Entresto 24 1 each PO BID 05/14/19 mg-26 mg Tablet] REVIEW OF SYSTEMS CONSTITUTIONAL: Absent: fever, chills, diaphoresis, generalized weakness, malaise, loss of appetite, weight change HEENT: Absent: rhinorrhea, nasal congestion, throat pain, throat swelling, difficulty swallowing, mouth swelling, ear pain, eye pain, visual changes CARDIOVASCULAR: Absent: chest pain, syncope, palpitations, irregular heart rate, lightheadedness , peripheral edema RESPIRATORY: Absent: cough, shortness of breath, dyspnea with exertion, orthopnea, wheezing, stridor, hemoptysis GASTROINTESTINAL: Absent: abdominal pain, abdominal distension, nausea, vomiting, diarrhea, constipation, melena, hematochezia GENITOURINARY: Absent: dysuria, frequency, urgency, hesitancy, hematuria, flank pain, genital pain MUSCULOSKELETAL: Present: toe pain Absent: myalgia, arthralgia, joint swelling, back pain, neck pain SKIN: Absent: rash, itching, pallor HEMATOLOGIC/IMMUNOLOGIC: Absent: easy bleeding, easy bruising, lymphadenopathy, frequent infections ENDOCRINE: Absent: unexplained weight gain, unexplained weight loss, heat intolerance, cold intolerance NEUROLOGIC: Absent: headache, focal weakness or paresthesias, dizziness, unsteady gait, seizure, mental status changes, bladder or bowel incontinence PHYSICAL EXAMINATION Vital Signs - 24 hr 05/13/19 05/13/19 05/14/19 22:20 22:40 00:50 Temperature 97.3 F L 98.2 F Pulse Rate 115 H Pulse Rate [ 102 H Left Radial] Respiratory 16 20 Rate Blood Pressure 90/49 L Blood Pressure 92/51 L [Right Arm] O2 Sat by Pulse 100 100 100 Oximetry (%) GENERAL: Awake, alert, and fully oriented, in no acute distress. obese female HEAD: Normal with no signs of trauma. EYES: Pupils equal, round and reactive to light, extraocular movements intact EARS, NOSE, THROAT: nares patent, oropharynx clear without exudates. Moist mucous membranes. on 3 L NC NECK: Normal range of motion, supple without lymphadenopathy. + JVD, L EJ IV line LUNGS: Breath sounds decreased b/l , scattered crackles. No accessory muscle use. HEART: Regular rate and rhythm, + S1 and S2 ABDOMEN: Soft, tender to palpation of RUQ, not distended, normoactive bowel sounds, no guarding, no rebound MUSCULOSKELETAL: Normal range of motion at all joints. No bony deformities or tenderness. No CVA tenderness. UPPER EXTREMITIES: 2+ pulses, warm, well-perfused. No cyanosis. No clubbing. 2+ b/l peripheral edema. LOWER EXTREMITIES: 2+ pulses, warm, well-perfused. No calf tenderness. 2+ b/l peripheral edema. NEUROLOGICAL: Cranial nerves II-XII intact. PSYCHIATRIC: irritable SKIN: Warm, dry, normal turgor, no rashes or lesions noted, normal capillary refill. Laboratory Last Values WBC 11.3 K/mm3 (4.0-10.0) H 05/13/19 22:50 RBC 3.50 M/mm3 (3.60-5.2) L 05/13/19 22:50 Hgb 9.7 GM/dL (10.7-15.3) L 05/13/19 22:50 Hct 30.2 % (32.4-45.2) L 05/13/19 22:50 MCV 86.2 fl (80-96) 05/13/19 22:50 MCH 27.7 pg (25.7-33.7) 05/13/19 22:50 MCHC 32.1 g/dl (32.0-36.0) 05/13/19 22:50 RDW 16.1 % (11.6-15.6) H 05/13/19 22:50 Plt Count 381 K/MM3 (134-434) D 05/13/19 22:50 MPV 7.6 fl (7.5-11.1) 05/13/19 22:50 Absolute Neuts (auto) 9.6 K/mm3 (1.5-8.0) H 05/13/19 22:50 Neutrophils % 84.8 % (42.8-82.8) H D 05/13/19 22:50 Lymphocytes % 6.4 % (8-40) L D 05/13/19 22:50 Monocytes % 8.5 % (3.8-10.2) 05/13/19 22:50 Eosinophils % 0.0 % (0-4.5) 05/13/19 22:50 Basophils % 0.3 % (0-2.0) 05/13/19 22:50 Nucleated RBC % 0 % (0-0) 05/13/19 22:50 Sodium 134 mmol/L (136-145) L 05/13/19 23:30 Potassium 5.3 mmol/L (3.5-5.1) H 05/13/19 23:30 Chloride 97 mmol/L (98-107) L 05/13/19 23:30 Carbon Dioxide 28 mmol/L (21-32) 05/13/19 23:30 Anion Gap 9 MMOL/L (8-16) 05/13/19 23:30 BUN 102.2 mg/dL (7-18) H 05/13/19 23:30 Creatinine 1.9 mg/dL (0.55-1.3) H 05/13/19 23:30 Est GFR (CKD-EPI)AfAm 31.51 05/13/19 23:30 Est GFR (CKD-EPI)NonAf 27.19 05/13/19 23:30 Random Glucose 117 mg/dL (74-106) H 05/13/19 23:30 Calcium 8.6 mg/dL (8.5-10.1) 05/13/19 23:30 Magnesium 2.4 mg/dL (1.8-2.4) 05/13/19 23:30 Total Bilirubin 0.8 mg/dL (0.2-1) 05/13/19 23:30 AST 21 U/L (15-37) 05/13/19 23:30 ALT 19 U/L (13-61) 05/13/19 23:30 Alkaline Phosphatase 175 U/L (45-117) H 05/13/19 23:30 Troponin I 0.05 ng/ml (0.00-0.05) 05/13/19 23:30 B-Natriuretic Peptide 43328.3 pg/ml (5-125) H 05/13/19 23:30 Total Protein 6.0 g/dl (6.4-8.2) L 05/13/19 23:30 Albumin 2.2 g/dl (3.4-5.0) L 05/13/19 23:30 ASSESSMENT/PLAN: 63 yo F PMH HFrEF(s/p ICD), A-fib, HTN, HLD, CAD (s/p CABG and PCI), s/p NSTEMI , T2DM, COPD (5L NC), hypothyroidism who presents from [facility] for evaluation of LIANNA. Pt is admitted to [facility] for acute on chronic HFrEF Acute on chronic HFrEF - CXR reviewed, cardiomegaly and increased congestive changes - pt appears overloaded on exam - spoke with Cyndee, states that pt only has been receiving 20 mg Lasix daily. was sent to hospital for elevated Cr - c/w IV lasix , continue to monitor BP since pressures are soft - hold metoprolol, and aldactone so pressures will be adequate for IV lasix - strict I/Os - Fluid restriction - cardio recs appreciated - BNP > 40208, was approx 6000 1 mo ago - Echo from 10/06 shows LVEF severely reduced, severe MR, LA &RA moderately dilated, severe TR - pt has nephrotic disease which could also be source of anasarca - consider device interrogation LIANNA likely 2/2 Type I Cardiorenal - Cr 2.4 - c/w lasix - Nephro recs appreciated Anemia - likely chronic -continue to monitor - pending iron studies F/E/N - no standing fluids - monitor lytes DVT ppx: on eliquis Visit type - Emergency Visit Emergency Visit: Yes ED Registration Date: 05/14/19 Care time: The patient presented to the Emergency Department on the above date and was hospitalized for further evaluation of their emergent condition. - New Patient This patient is new to me today: Yes Date on this admission: 05/26/19 - Critical Care Critical Care patient: Yes Total Critical Care Time (in minutes): 36 Critical Care Statement: The care of this patient involved high complexity decision making to prevent further life threatening deterioration of the patient 's condition and/or to evaluate & treat vital organ system(s) failure or risk of failure. ATTENDING PHYSICIAN STATEMENT I saw and evaluated the patient. I reviewed the resident's note and discussed the case with the resident. I agree with the resident's findings and plan as documented. SUBJECTIVE: OBJECTIVE: ASSESSMENT AND PLAN:
[2019-05-14] MEDS ORDERED: ACETAMINOPHEN 325 MG TABLET (FP) PO SCH (03:15)
[2019-05-14] MEDS: ACETAMINOPHEN 325 MG TABLET (FP) PO PRN (03:18)
[2019-05-14] MEDS ORDERED: DEXMEDETOMIDINE HCL 200 MCG in SODIUM CHLORIDE 48 ML IVPB SCH (04:30)
--- NOTE | 2019-05-14 04:40 | CONSULT ---
Consultation: REQUESTING PROVIDER: Dr. Potter CONSULT REQUEST: ICU Monitoring. HISTORY OF PRESENT ILLNESS: 63 yo F PMH HFrEF(s/p ICD), A-fib, HTN, HLD, CAD (s/p CABG and PCI), s/p NSTEMI , T2DM, COPD (5L NC), hypothyroidism who presents from [facility] for evaluation of LIANNA, patient had routine bloodwork done and her Cr was found to be 2.4 - patient was recently discharged from the hospital (05/02) where her Cr at that time was 0.9. She was also found to be overloaded as she had no been receiving her regular dose of lasix ( had been receiving 20mg daily instead of 80mg daily ) so she was brought to the ED where her pressures were found to be soft with systolics in the 70's needing a central line to be placed. patient was given 1 250cc bolus of NS in the ED; CXR notable for cardiomegaly and increased congestive changes- labs notable for K 5.3, Cr 1.9 BNP near 15,000 REVIEW OF SYSTEMS: CONSTITUTIONAL: Present: generalized pain Absent: fever, chills, diaphoresis, generalized weakness, malaise, loss of appetite, weight change HEENT: Absent: rhinorrhea, nasal congestion, throat pain, throat swelling, difficulty swallowing, mouth swelling, ear pain, eye pain, visual changes CARDIOVASCULAR: Present: peripheral edema Absent: chest pain, syncope, palpitations, irregular heart rate, lightheadedness, RESPIRATORY: Absent: cough, shortness of breath, dyspnea with exertion, orthopnea, wheezing, stridor, hemoptysis GASTROINTESTINAL: Absent: abdominal pain, abdominal distension, nausea, vomiting, diarrhea, constipation, melena, hematochezia GENITOURINARY: Absent: dysuria, frequency, urgency, hesitancy, hematuria, flank pain, genital pain MUSCULOSKELETAL: Absent: myalgia, arthralgia, joint swelling, back pain, neck pain SKIN: Absent: rash, itching, pallor HEMATOLOGIC/IMMUNOLOGIC: Absent: easy bleeding, easy bruising, lymphadenopathy, frequent infections ENDOCRINE: Absent: unexplained weight gain, unexplained weight loss, heat intolerance, cold intolerance NEUROLOGIC: Absent: headache, focal weakness or paresthesias, dizziness, unsteady gait, seizure, mental status changes, bladder or bowel incontinence PSYCHIATRIC: Absent: anxiety, depression, suicidal or homicidal ideation, hallucinations. PHYSICAL EXAMINATION Vital Signs - 24 hr 05/13/19 05/13/19 05/14/19 22:20 22:40 00:50 Temperature 97.3 F L 98.2 F Pulse Rate 115 H Pulse Rate [ 102 H Left Radial] Respiratory 16 20 Rate Blood Pressure 90/49 L Blood Pressure 92/51 L [Right Arm] O2 Sat by Pulse 100 100 100 Oximetry (%) 05/14/19 01:01 Temperature 97.7 F Pulse Rate 108 H Pulse Rate [ Left Radial] Respiratory 23 H Rate Blood Pressure 86/61 L Blood Pressure [Right Arm] O2 Sat by Pulse 100 Oximetry (%) GENERAL: Awake, alert, moaning in pain. EYES: PEERLA: EOMI; no scleral icterus . NECK: no JVD; no lymphadenopathy LUNGS: decreased breath sounds at the bases B/L. HEART: Regular rate and rhythm, s1 s2 no murmurs/rubs/gallops ABDOMEN: Soft, tenderness upon palpation; +BS in all 4 quadrants . EXTREMITIES: warm; well-perfused anasarca ; edmema (2+ pitting B/L) NEUROLOGICAL: Cranial nerves II-XII intact. Normal speech. Normal gait. PSYCHIATRIC: Cooperative. Good eye contact. Appropriate mood and affect. SKIN: Warm, dry, normal turgor, no rashes or lesions noted. Laboratory Results - last 24 hr 05/13/19 05/13/19 05/13/19 22:50 22:50 23:30 WBC 11.3 H RBC 3.50 L Hgb 9.7 L Hct 30.2 L MCV 86.2 MCH 27.7 MCHC 32.1 RDW 16.1 H Plt Count 381 D MPV 7.6 Absolute Neuts (auto) 9.6 H Neutrophils % 84.8 H D Lymphocytes % 6.4 L D Monocytes % 8.5 Eosinophils % 0.0 Basophils % 0.3 Nucleated RBC % 0 Sodium Cancelled 134 L Potassium Cancelled 5.3 H Chloride Cancelled 97 L Carbon Dioxide Cancelled 28 Anion Gap Cancelled 9 BUN Cancelled 102.2 H Creatinine Cancelled 1.9 H Est GFR (CKD-EPI)AfAm Cancelled 31.51 Est GFR (CKD-EPI)NonAf Cancelled 27.19 Random Glucose Cancelled 117 H Calcium Cancelled 8.6 Magnesium Cancelled 2.4 Total Bilirubin Cancelled 0.8 AST Cancelled 21 ALT Cancelled 19 Alkaline Phosphatase Cancelled 175 H Troponin I Cancelled B-Natriuretic Peptide Cancelled Total Protein Cancelled 6.0 L Albumin Cancelled 2.2 L 05/13/19 23:30 WBC RBC Hgb Hct MCV MCH MCHC RDW Plt Count MPV Absolute Neuts (auto) Neutrophils % Lymphocytes % Monocytes % Eosinophils % Basophils % Nucleated RBC % Sodium Potassium Chloride Carbon Dioxide Anion Gap BUN Creatinine Est GFR (CKD-EPI)AfAm Est GFR (CKD-EPI)NonAf Random Glucose Calcium Magnesium Total Bilirubin AST ALT Alkaline Phosphatase Troponin I 0.05 B-Natriuretic Peptide 38258.3 H Total Protein Albumin Active Medications Generic Name Dose Route Start Last Admin Trade Name Freq PRN Reason Stop Dose Admin Acetaminophen 650 mg 05/14/19 03:00 05/14/19 03:18 Tylenol - PO 650 mg Q6H PRN Administration Fever Or Pain Apixaban 5 mg 05/14/19 10:00 Eliquis - PO BID RINA Chlorhexidine Gluconate 1 applic 05/14/19 22:00 Hibiclens For Decolonization - TP HS RINA Clopidogrel Bisulfate 75 mg 05/14/19 10:00 Plavix - PO DAILY RINA Dexmedetomidine HCl 200 mcg/ 50 mls @ 4.95 mls/hr 05/14/19 04:30 Sodium Chloride IVPB TITR RINA 0.2 MCG/KG/HR Levothyroxine Sodium 75 mcg 05/14/19 07:00 Synthroid - PO DAILY@0700 RINA Mupirocin 1 applic 05/14/19 10:00 Bactroban Ointment (For Decolonization) - NS 05/19/19 09:59 BID RINA Sacubitril/Valsartan 1 tab 05/14/19 10:00 Entresto 24 Mg-26 Mg Tablet PO BID RINA ASSESSMENT/PLAN: 63 yo F PMH HFrEF(s/p ICD), A-fib, HTN, HLD, CAD (s/p CABG and PCI), s/p NSTEMI , T2DM, COPD (5L NC), hypothyroidism who presents from [facility] for evaluation of LIANNA found to be in acute CHF exacerbation with profound hypotension requiring central line placement #Neuro stable; no issues #Cardio CHF; Afib; HTN; CAD -currently in CHF exacerbation however hypotensive requiring central line placement -once pressures stabilize, IV lasix -monitor I's and O's -BNP > 66431, was approx 6000 1 mo ago - Echo from 10/06 shows LVEF severely reduced, severe MR, LA &RA moderately dilated, severe TR -holding home HTN meds -cardio consulted Dispo: We will continue to follow the patient. Thank you for this consultative opportunity. ATTENDING PHYSICIAN STATEMENT I saw and evaluated the patient. I reviewed the resident's note and discussed the case with the resident. I agree with the resident's findings and plan as documented. SUBJECTIVE: OBJECTIVE: ASSESSMENT AND PLAN:
[2019-05-14 06:04] LABS: HEMATOCRIT 29.6 % (32.4-45.2); HEMOGLOBIN 9.8 GM/dL (10.7-15.3); MCH 28.2 pg (25.7-33.7); MCHC 33.2 g/dl (32.0-36.0); MEAN CELL VOLUME 84.8 fl (80-96); MEAN PLT VOLUME 6.8 fl (7.5-11.1); PLATELET COUNT 341 K/MM3 (134-434); RBC 3.49 M/mm3 (3.60-5.2); RDW 15.6 % (11.6-15.6); WHITE BLOOD COUNT 9.1 K/mm3 (4.0-10.0)
[2019-05-14 06:05] LABS: BASO % 0.3 % (0-2.0); LYMPH % 6.4 % (8-40); MONO % 10.4 % (3.8-10.2); NEUT % 82.9 % (42.8-82.8)
[2019-05-14 06:36] LABS: ALBUMIN 2.3 g/dl (3.4-5.0); BILIRUBIN,TOTAL 0.8 mg/dL (0.2-1); BLOOD UREA NITROGEN 103.1 mg/dL (7-18); CALCIUM 8.7 mg/dL (8.5-10.1); CREATININE 1.8 mg/dL (0.55-1.3); MAGNESIUM 2.2 mg/dL (1.8-2.4); PHOSPHOROUS 4.2 mg/dL (2.5-4.9); POTASSIUM 4.7 mmol/L (3.5-5.1); TOT PROT 5.7 g/dl (6.4-8.2)
[2019-05-14] MEDS: LEVOTHYROXINE NA 75 MCG TABLET (FP) PO SCH (06:39)
--- NOTE | 2019-05-14 09:40 | HOSP ---
Subjective - Review of Symptoms Events since last encounter: patient refused exam . she speaks withher eyes closed, denies pain or SOB. she feels " OK" . she has upper lids edema . and what looks like LE edema bilaterally. 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 Will start lasix 40 IV daily . hold if sBP < 80 - was d/c on lasix 80 mg daily, will have to confirm if it was decreased as out p t - hold Entresto and give low dose metorpolol with parameters due to hypotension now. - if BP remains an issue, she might need inotropes - hold spironolactone for now - card consult pending 2- H/o A fib: sligthly tachy - start low dose toprol ( 12.5 ) with parameters. ( home dose 75) - monitor 3- LIANNA: likely cardiorenal sx. monitor with diuresis 4- leukocytosis. resolved. Cxray noted. doubt PNA. monitor off Abx Physical Examination Vital Signs: Vital Signs Temperature 97.8 F 05/14/19 06:00 Pulse Rate 106 H 05/14/19 06:00 Respiratory Rate 18 05/14/19 06:00 Blood Pressure 78/53 L 05/14/19 06:00 O2 Sat by Pulse Oximetry (%) 100 05/14/19 01:01 Labs: CBC, BMP 05/14/19 05:45 05/14/19 05:45
[2019-05-14] MEDS ORDERED: SACUBITRIL/VALSARTAN 24 MG-26 MG TABLET PO SCH (10:00)
[2019-05-14] MEDS: CLOPIDOGREL BISULFATE 75 MG TABLET (FP) PO SCH (10:04)
[2019-05-14] MEDS: APIXABAN 5 MG TABLET PO SCH ×2 (10:04→22:07)
[2019-05-14] MEDS: FUROSEMIDE 40 MG/4 ML INJECTABLE VIAL IVPUSH SCH (10:11)
[2019-05-14] MEDS: metoPROLOL SUCCINATE 25 MG TAB.SR.24H (FP) PO SCH (10:12)
[2019-05-14] MEDS: MUPIROCIN 2% TOPICAL OINTMENT FOR DECOLONIZATION NS SCH ×2 (10:16→22:07)
--- NOTE | 2019-05-14 15:05 | CONSULT ---
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 SHe was recently discharged after a chf exacerbation and lianna from cardiorenal syndrome. She complains of lower ext edema. She does get shortness of breath at times. She denies fevers or chills. 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 Had PEG placed 11/03 after suffering vocal cord damage ( EMS intubation). PEG was subsequently removed. ) Hepatobiliary: Yes: Cirrhosis (cardiac cirrhosis), Cholecystitis (s/p lap choly 05/05) Renal/: Yes: Renal Calculi ...: No Psych: Yes: Depression Musculoskeletal: Yes: Chronic low back pain, Osteoarthritis Endocrine: Yes: Hypothyroidism - Past Surgical History Past Surgical History: Yes: AICD, CABG, Cholecystectomy (05/05), Colonoscopy, Joint Replacement (right THR), Stent (X2) - Alcohol/Substance Use Hx Alcohol Use: Yes History of Substance Use: reports: None - Smoking History Smoking history: Unknown if ever smoked Have you smoked in the past 12 months: No Aproximately how many cigarettes per day: 2 If you are a former smoker, when did you quit?: 3 months ago - Social History Usual Living Arrangement: Alone ADL: Independent 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 History of Recent Travel: No Home Medications - Allergies Allergies/Adverse Reactions: Allergies Allergy/AdvReac Type Severity Reaction Status Date / Time aspirin Allergy Mild Rash Verified 05/13/19 22:31 banana Allergy Hives Verified 05/13/19 22:31 tomato Allergy Verified 05/13/19 22:31 - Home Medications Home Medications: Ambulatory Orders Clopidogrel Bisulfate [Plavix -] 75 mg PO DAILY #30 tablet 08/02/17 Levothyroxine [Synthroid -] 75 mcg PO DAILY@0700 30 Days #30 tablet 08/02/17 Spironolactone 25 mg PO DAILY 12/09/18 Apixaban [Eliquis -] 5 mg PO BID #60 tablet 05/02/19 Acetaminophen [Tylenol] 650 mg PO Q6H 05/14/19 Furosemide [Lasix] 40 mg PO DAILY 05/14/19 Metoprolol Succinate [Toprol XL -] 75 mg PO DAILY 05/14/19 Polyethylene Glycol 3350 [Miralax (For Daily Use) -] 17 gm PO DAILY 05/14/19 Sacubitril/Valsartan [Entresto 24 mg-26 mg Tablet] 1 each PO BID 05/14/19 Family Medical History Family History: Denies Review of Systems - Review of Systems Constitutional: reports: No Symptoms Eyes: reports: No Symptoms HENT: reports: No Symptoms Neck: reports: No Symptoms Cardiovascular: reports: No Symptoms Respiratory: reports: No Symptoms Gastrointestinal: reports: No Symptoms Genitourinary: reports: No Symptoms Musculoskeletal: reports: No Symptoms Integumentary: reports: No Symptoms Neurological: reports: No Symptoms Endocrine: reports: No Symptoms Hematology/Lymphatic: reports: No Symptoms Psychiatric: reports: No Symptoms Physical Exam Vital Signs: Vital Signs Temperature 97.6 F 05/14/19 14:00 Pulse Rate 113 H 05/14/19 14:00 Respiratory Rate 18 05/14/19 14:00 Blood Pressure 81/74 L 05/14/19 14:00 O2 Sat by Pulse Oximetry (%) 100 05/14/19 09:00 Constitutional: Yes: Calm Eyes: Yes: Conjunctiva Clear HENT: Yes: Atraumatic Neck: Yes: Supple Cardiovascular: Yes: S1, S2 Respiratory: Yes: On Nasal O2, Rhonchi Gastrointestinal: Yes: Normal Bowel Sounds, Soft Renal/: Yes: WNL Musculoskeletal: Yes: WNL Edema: Yes Neurological: Yes: Oriented Psychiatric: Yes: Oriented Labs: CBC, BMP 05/14/19 05:45 05/14/19 05:45 Laboratory Tests 04/26/19 04/29/19 05/01/19 11:16 06:35 05:20 WBC Hgb Plt Count Sodium Potassium Creatinine 2.2 H 0.8 0.9 05/13/19 05/13/19 05/14/19 22:50 23:30 05:45 WBC 11.3 H 9.1 Hgb 9.7 L 9.8 L Plt Count 381 D 341 Sodium 134 L Potassium 5.3 H Creatinine 1.9 H 05/14/19 05:45 WBC Hgb Plt Count Sodium 135 L Potassium 4.7 Creatinine 1.8 H Imaging - Results Chest X-ray: Report Reviewed Problem List - Problems (1) LIANNA (acute kidney injury) Code(s): N17.9 - ACUTE KIDNEY FAILURE, UNSPECIFIED Assessment/Plan Current Medications Generic Name Dose Route Start Last Admin Trade Name Freq PRN Reason Stop Dose Admin Acetaminophen 650 mg 05/14/19 03:00 05/14/19 03:18 Tylenol - PO 650 mg Q6H PRN Administration Fever Or Pain Apixaban 5 mg 05/14/19 10:00 05/14/19 10:04 Eliquis - PO 5 mg BID [facility] Administration Chlorhexidine Gluconate 1 applic 05/14/19 22:00 Hibiclens For Decolonization - TP HS [facility] Clopidogrel Bisulfate 75 mg 05/14/19 10:00 05/14/19 10:04 Plavix - PO 75 mg DAILY [facility] Administration Furosemide 40 mg 05/14/19 10:00 05/14/19 10:11 Lasix Injection - IVPUSH Not Given DAILY [facility] Levothyroxine Sodium 75 mcg 05/14/19 07:00 05/14/19 06:39 Synthroid - PO 75 mcg DAILY@0700 [facility] Administration Metoprolol Succinate 12.5 mg 05/14/19 10:00 05/14/19 10:12 Toprol Xl - PO Not Given DAILY [facility] Mupirocin 1 applic 05/14/19 10:00 05/14/19 10:16 Bactroban Ointment (For Decolonization) - NS 05/19/19 09:59 Not Given BID [facility] Impression 1. LIANNA 2. CHF 3. volume overload 4. HTN 5. HLD 6. DM 7. CAD 8. COPD 9. active smoker 10. anasarca 11. hypotension 12. hx of positive danielle Plan - cont IV lasix - monitor renal function - repeat labs in am - increase lasix of volume status does not improve - 2 gram sodium diet
[2019-05-14 16:35] LABS: EPI CELLS 11.8 /HPF (0-5/HPF); HYALINE CASTS 50 /lpf (0-8); URINE APPEARANCE CLOUDY; URINE BILIRUBIN NEGATIVE (NEGATIVE); URINE COLOR YELLOW; URINE GLUCOSE (UA) NEGATIVE (NEGATIVE); URINE KETONE NEGATIVE (NEGATIVE); URINE LEUK ESTERASE NEGATIVE (NEGATIVE); URINE NITRITE NEGATIVE (NEGATIVE); URINE PROTEIN NEGATIVE (NEGATIVE); URINE RBC 1 /hpf (0-4); URINE WBC 1 /hpf (0-5)
[2019-05-14] MEDS: CHLORHEXIDINE GLUCONATE 4% CLEANSER FOR DECOLONIZATION TP SCH (22:07)
[2019-05-15] MEDS ORDERED: MORPHINE SULFATE 2 MG/ML VIAL IVPUSH ONE ×2 (00:51→21:55)
[2019-05-15] MEDS: LEVOTHYROXINE NA 75 MCG TABLET (FP) PO SCH (06:11)
--- NOTE | 2019-05-15 06:51 | CON.CARD ---
Consult Consult Specialty:: cardiology Reason for Consultation:: hx systolic CHF - History of Present Illness Chief Complaint: Pt Alert and oriented; denies chesa pain; c/o ongoing (for months) bilateral pain in feet. History of Present Illness: The pt is a 63 yr old black woman with PM history of HFrEF (severely reduced LVEF; s/p ICD), A-fib, sleep apnea, HTN, HLD, CAD s/p CABG and PCI, s/p NSTEMI, renal dysfunction (hx cardiorenal syndrome), HTN, DM, COPD (5L NC), hypothyroidism, obesity, noncompliance to diet and medications, depression, cigarette smoker, who presents from [facility] for evaluation of LIANNA and NH reports they are "out of fluids to give patient". Baseline Cr 0.9, Cr at [facility] today 2.4. Pt reports generalized fatigue and chronic foot pain (admitted recently for similar complaints). 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 Had PEG placed 11/03 after suffering vocal cord damage ( EMS intubation). PEG was subsequently removed. ) Hepatobiliary: Yes: Cirrhosis (cardiac cirrhosis), Cholecystitis (s/p lap choly 05/05) Renal/: Yes: Renal Calculi Reproductive: Yes: Postmenopausal ...: No Heme/Onc: Yes: Anemia Psych: Yes: Depression Musculoskeletal: Yes: Chronic low back pain, Osteoarthritis Endocrine: Yes: Hypothyroidism - Past Surgical History Past Surgical History: Yes: AICD, CABG, Cholecystectomy (05/05), Colonoscopy, Joint Replacement (right THR), Stent (X2) - Alcohol/Substance Use Hx Alcohol Use: Yes History of Substance Use: reports: None - Smoking History Smoking history: Unknown if ever smoked Have you smoked in the past 12 months: No Aproximately how many cigarettes per day: 2 If you are a former smoker, when did you quit?: 3 months ago - Social History Usual Living Arrangement: Alone ADL: Independent 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 History of Recent Travel: No Home Medications - Allergies Allergies/Adverse Reactions: Allergies Allergy/AdvReac Type Severity Reaction Status Date / Time aspirin Allergy Mild Rash Verified 05/13/19 22:31 banana Allergy Hives Verified 05/13/19 22:31 tomato Allergy Verified 05/13/19 22:31 - Home Medications Home Medications: Ambulatory Orders Clopidogrel Bisulfate [Plavix -] 75 mg PO DAILY #30 tablet 08/02/17 Levothyroxine [Synthroid -] 75 mcg PO DAILY@0700 30 Days #30 tablet 08/02/17 Spironolactone 25 mg PO DAILY 12/09/18 Apixaban [Eliquis -] 5 mg PO BID #60 tablet 05/02/19 Furosemide [Lasix] 80 mg PO DAILY 05/14/19 Metoprolol Succinate [Toprol XL -] 100 mg PO DAILY 05/14/19 Sacubitril/Valsartan [Entresto 24 mg-26 mg Tablet] 1 each PO BID 05/14/19 Family Medical History Family Hx Cardiac Disorders: Sister ([place]; CABG) Review of Systems - Review of Systems Constitutional: reports: Weakness Eyes: reports: No Symptoms HENT: reports: No Symptoms Neck: reports: No Symptoms Cardiovascular: reports: Edema Respiratory: reports: Exercise Intolerance, SOB on Exertion Gastrointestinal: reports: No Symptoms Genitourinary: reports: No Symptoms Breasts: reports: No Symptoms Reported Musculoskeletal: reports: Back Pain, Decreased ROM, Muscle Pain, Muscle Weakness Integumentary: reports: Erythema Neurological: reports: Unsteady Gait, Weakness Psychiatric: reports: Anxiety, Depression - Risk Factors Known Risk Factors: Yes: Age, Diabetes Mellitus, Family History, Hypercholesterolemia, Hypertension, Physical Inactivity, Prior [place] /Emb Stroke, Race, Smoking, Other (severe systolic CHF) Vital Signs: Vital Signs Temperature 97.6 F 05/14/19 14:00 Pulse Rate 108 H 05/14/19 18:00 Respiratory Rate 18 05/14/19 18:00 Blood Pressure 107/83 05/14/19 18:00 O2 Sat by Pulse Oximetry (%) 100 05/14/19 20:50 Constitutional: Yes: Anxious Eyes: Yes: WNL HENT: Yes: WNL Neck: Yes: WNL Respiratory: Yes: Diminished Gastrointestinal: Yes: Soft, Abdomen, Obese Renal/: No: Anuria Cardiovascular: Yes: Tachycardia, Pulse Irregular JVD: Yes Carotid Bruit: No PMI: Displaced Heart Sounds: Yes: S1, Split S2 Murmur: Yes: Systolic Murmur, Grade 2 Musculoskeletal: Yes: Back Pain, Joint Stiffness, Muscle Weakness Extremities: Yes: Cool Edema: Yes Edema: LLE: 2+, RLE: 2+ Peripheral Pulses WNL: No Peripheral Pulses: 1+ Left Doralis Pedis, 1+ Right Dorsalis Pedis Integumentary: Yes: Venous Stasis Changes Neurological: Yes: Alert, Oriented, Weakness Psychiatric: Yes: Alert, Oriented - Other Data Labs, Other Data: CBC, BMP 05/14/19 05:45 05/14/19 05:45 Troponin, BNP 05/14/19 05:45 Troponin I 0.06 H Troponin, BNP 05/14/19 05:45 Troponin I 0.06 H Abnormal Lab Results 05/20/19 05/20/19 05:35 05:35 WBC 10.8 H RBC 3.52 L Hgb 9.6 L Hct 30.3 L MCHC 31.8 L RDW 16.1 H MPV 7.4 L Sodium 134 L Anion Gap 7 L BUN 96.9 H Creatinine 2.4 H Calcium 8.4 L Total Bilirubin 1.3 H AST 14 L ALT 11 L Alkaline Phosphatase 152 H Total Protein 5.3 L Albumin 1.8 L Echo: Report Reviewed Ejection Fraction %: LVEF < 40 % Imaging - Results Chest X-ray: Image Reviewed EKG: Image Reviewed Other: Image Reviewed (NSR; periods of atrial flutter with 2:1 block) Problem List - Problems (1) AICD (automatic cardioverter/defibrillator) present Assessment/Plan: ICD interrogation, if not done within the past 3 months Code(s): Z95.810 - PRESENCE OF AUTOMATIC (IMPLANTABLE) CARDIAC DEFIBRILLATOR (2) Acute on chronic systolic and diastolic heart failure, NYHA class 3 Assessment/Plan: Severely reduced LVEF. On metoprolol and furosemide. Problematic restarting Entresto (which contains ARB) until further evaluation of progressive and marked rise in BUN (now >100) is made. Hx cardiorenal syndrome. Code(s): I50.43 - ACUTE ON CHRONIC COMBINED SYSTOLIC AND DIASTOLIC HRT FAIL (3) Anemia Code(s): D64.9 - ANEMIA, UNSPECIFIED (4) Anxiety and depression Code(s): F41.9 - ANXIETY DISORDER, UNSPECIFIED; F32.9 - MAJOR DEPRESSIVE DISORDER, SINGLE EPISODE, UNSPECIFIED (5) Hx of CABG Code(s): Z95.1 - PRESENCE OF AORTOCORONARY BYPASS GRAFT (6) Noncompliance with therapeutic plan Code(s): Z91.11 - PATIENT'S NONCOMPLIANCE WITH DIETARY REGIMEN (7) Obesity Code(s): E66.9 - OBESITY, UNSPECIFIED (8) Smokes cigarettes Code(s): F17.210 - NICOTINE DEPENDENCE, CIGARETTES, UNCOMPLICATED (9) Diabetes Code(s): E11.9 - TYPE 2 DIABETES MELLITUS WITHOUT COMPLICATIONS Qualifiers: Diabetes mellitus type: type 2 Diabetes mellitus 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 insulin use: with 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 use Diabetes mellitus complication status: with unspecified complications (10) Hyperlipidemia Code(s): E78.5 - HYPERLIPIDEMIA, UNSPECIFIED (11) Hypertension Code(s): I10 - ESSENTIAL (PRIMARY) HYPERTENSION (12) Peripheral neuropathy Code(s): G62.9 - POLYNEUROPATHY, UNSPECIFIED Qualifiers: Peripheral neuropathy type: polyneuropathy, unspecified Qualified Code(s): G62.9 - Polyneuropathy, unspecified (13) Sleep apnea Code(s): G47.30 - SLEEP APNEA, UNSPECIFIED (14) Status post THR (total hip replacement) Code(s): Z96.649 - PRESENCE OF UNSPECIFIED ARTIFICIAL HIP JOINT (15) Hypothyroidism Code(s): E03.9 - HYPOTHYROIDISM, UNSPECIFIED (16) PAF (paroxysmal atrial fibrillation) Assessment/Plan: On metoprolol ER for HR control, as well as for systolic CHF. On apixaban for anticoagulation. Code(s): I48.0 - PAROXYSMAL ATRIAL FIBRILLATION (17) Acute on chronic renal failure Code(s): N17.9 - ACUTE KIDNEY FAILURE, UNSPECIFIED; N18.9 - CHRONIC KIDNEY DISEASE, UNSPECIFIED
[2019-05-15 09:28] LABS: BLOOD UREA NITROGEN 95.5 mg/dL (7-18); CALCIUM 8.7 mg/dL (8.5-10.1); CREATININE 1.5 mg/dL (0.55-1.3); POTASSIUM 4.7 mmol/L (3.5-5.1)
[2019-05-15] MEDS ORDERED: FUROSEMIDE 40 MG/4 ML INJECTABLE VIAL IVPUSH ONE (10:00)
[2019-05-15] MEDS: APIXABAN 5 MG TABLET PO SCH ×2 (10:13→21:15)
[2019-05-15] MEDS: FUROSEMIDE 40 MG/4 ML INJECTABLE VIAL IVPUSH SCH (10:15)
[2019-05-15] MEDS: MUPIROCIN 2% TOPICAL OINTMENT FOR DECOLONIZATION NS SCH ×2 (10:15→21:15)
[2019-05-15] MEDS: metoPROLOL SUCCINATE 25 MG TAB.SR.24H (FP) PO SCH (10:17)
--- NOTE | 2019-05-15 10:30 | EKG ---
Test Reason : Blood Pressure : / mmHG Vent. Rate : 124 BPM Atrial Rate : 090 BPM P-R Int : 000 ms QRS Dur : 116 ms QT Int : 382 ms P-R-T Axes : 000 009 -70 degrees QTc Int : 548 ms POOR DATA QUALITY, INTERPRETATION MAY BE ADVERSELY AFFECTED UNDETERMINED RHYTHM LOW VOLTAGE QRS CANNOT RULE OUT ANTERIOR INFARCT (CITED ON OR BEFORE 22-SEP-2018) ABNORMAL ECG Confirmed by MATEUS CHAMBERS, VERÓNICA ([id number]) on 05/15/2019 10:30:27 AM Referred By: Confirmed By:VERÓNICA IGNACIO MD
--- NOTE | 2019-05-15 10:30 | EKG ---
Test Reason : Blood Pressure : / mmHG Vent. Rate : 108 BPM Atrial Rate : 079 BPM P-R Int : 000 ms QRS Dur : 120 ms QT Int : 354 ms P-R-T Axes : 000 133 252 degrees QTc Int : 474 ms ATRIAL FIBRILLATION WITH RAPID VENTRICULAR RESPONSE RIGHT AXIS DEVIATION LOW VOLTAGE QRS CANNOT RULE OUT ANTEROSEPTAL INFARCT (CITED ON OR BEFORE 22-SEP-2018) ABNORMAL ECG WHEN COMPARED WITH ECG OF 13-MAY-2019 22:36, ATRIAL FIBRILLATION HAS REPLACED JUNCTIONAL RHYTHM QUESTIONABLE CHANGE IN INITIAL FORCES OF ANTEROSEPTAL LEADS NON-SPECIFIC CHANGE IN ST SEGMENT IN LATERAL LEADS NONSPECIFIC T WAVE ABNORMALITY HAS REPLACED INVERTED T WAVES IN INFERIOR LEADS Confirmed by MATEUS CHAMBERS, VERÓNICA ([id number]) on 05/15/2019 10:29:53 AM Referred By: Confirmed By:VERÓNICA IGNACIO MD
[2019-05-15] MEDS: ACETAMINOPHEN 325 MG TABLET (FP) PO PRN (11:11)
--- NOTE | 2019-05-15 12:27 | PN ---
Teaching Attending Note Name of Resident: Reggie Bedolla ATTENDING PHYSICIAN STATEMENT I saw and evaluated the patient. I reviewed the resident's note and discussed the case with the resident. I agree with the resident's findings and plan as documented. SUBJECTIVE: No fever or chills. No MOREAU . denies SOB, has pain in her feet. and legs OBJECTIVE: NAD. awake, cooperative. ASSESSMENT AND PLAN: 61 year old female, with a significant past medical history of hypertension, hypercholesterolemia, CAD, [place](X2), s/p defibrillator/pacemaker and CABG, CHF, DM II, kidney stones, peripheral neuropathy, recently diagnosed A fib, hypothyroidism, and non compliance who presented with SOB , AMS, and was found to have Acute CHF and hypotension 1- Acute on chronic systolic CHF: - BP improved today . will administer the lasix. - monitor weight and I&O - hold Entresto - cont low dose toprol. will give today as BP improved - hold spironolactone for now 2- H/o A fib: tachycardic - cont low dose toprol ( 12.5 ) with holding parameters. - cont eliquis - monitor 3- LIANNA: likely cardiorenal sx. monitor with diuresis . Cr improved 4- leukocytosis. resolved. tele monitoring
[2019-05-15] MEDS: CLOPIDOGREL BISULFATE 75 MG TABLET (FP) PO SCH (13:14)
--- NOTE | 2019-05-15 13:37 | PN ---
Physical Exam: SUBJECTIVE: Patient seen and examined. She reports lower abdominal pain and b/l foot pain. She denies chest pain, shortness of breath, cough, or nausea. OBJECTIVE: Vital Signs Period Temp Pulse Resp BP Sys/Santoro Pulse Ox Last 24 Hr 97.3 F-98.6 F 108-129 18-23 81-109/55-83 98-100 GENERAL: The patient is awake, alert, and oriented to person, place, and month/ year, no distress. HEAD: Normal with no signs of trauma. EYES: PERRL, extraocular movements intact, conjunctiva clear. ENT: Ears normal, nares patent, moist mucous membranes. NECK: Trachea midline, full range of motion, JVD LUNGS: Breath sounds equal, clear to auscultation anteriorly, no wheezes HEART: Tachycardic and regular rhythm, no murmur appreciated, regular S1, S2 ABDOMEN: Soft, suprapubic tenderness, nondistended, normoactive bowel sounds, no guarding EXTREMITIES: Trace edema b/l lower extremities NEUROLOGICAL: Cranial nerves II through XII grossly intact. Normal speech. PSYCH: Normal mood, normal affect. SKIN: Warm, dry, normal turgor tele: tachycardia Laboratory Results - last 24 hr 05/14/19 05/14/19 05/15/19 03:00 17:38 08:25 Sodium 136 Potassium 4.7 Chloride 99 Carbon Dioxide 30 Anion Gap 7 L BUN 95.5 H Creatinine 1.5 H Est GFR (CKD-EPI)AfAm 41.94 Est GFR (CKD-EPI)NonAf 36.18 POC Glucometer 110 Random Glucose 84 Calcium 8.7 Urine Color Yellow Urine Appearance Cloudy Urine pH 5.0 Ur Specific [place] 1.014 Urine Protein Negative Urine Glucose (UA) Negative Urine Ketones Negative Urine Blood 3+ H Urine Nitrite Negative Urine Bilirubin Negative Urine Urobilinogen 1.0 Ur Leukocyte Esterase Negative Urine WBC (Auto) 1 Urine RBC (Auto) 1 Urine Casts (Auto) 50 U Pathogenic Cast Auto None seen U Epithel Cells (Auto) 11.8 U Sm Round Cell (Auto) [place] Urine Bacteria (Auto) 10.0 05/15/19 13:06 Sodium Potassium Chloride Carbon Dioxide Anion Gap BUN Creatinine Est GFR (CKD-EPI)AfAm Est GFR (CKD-EPI)NonAf POC Glucometer 108 Random Glucose Calcium Urine Color Urine Appearance Urine pH Ur Specific [place] Urine Protein Urine Glucose (UA) Urine Ketones Urine Blood Urine Nitrite Urine Bilirubin Urine Urobilinogen Ur Leukocyte Esterase Urine WBC (Auto) Urine RBC (Auto) Urine Casts (Auto) U Pathogenic Cast Auto U Epithel Cells (Auto) U Sm Round Cell (Auto) Urine Bacteria (Auto) Active Medications Generic Name Dose Route Start Last Admin Trade Name Freq PRN Reason Stop Dose Admin Acetaminophen 650 mg 05/14/19 03:00 05/15/19 11:11 Tylenol - PO 650 mg Q6H PRN Administration Fever Or Pain Apixaban 5 mg 05/14/19 10:00 05/15/19 10:13 Eliquis - PO 5 mg BID [facility] Administration Chlorhexidine Gluconate 1 applic 05/14/19 22:00 05/14/19 22:07 Hibiclens For Decolonization - TP 1 applic HS [facility] Administration Clopidogrel Bisulfate 75 mg 05/14/19 10:00 05/15/19 13:14 Plavix - PO 75 mg DAILY [facility] Administration Furosemide 40 mg 05/14/19 10:00 05/14/19 10:11 Lasix Injection - IVPUSH Not Given DAILY [facility] Levothyroxine Sodium 75 mcg 05/14/19 07:00 05/15/19 06:11 Synthroid - PO 75 mcg DAILY@0700 [facility] Administration Metoprolol Succinate 12.5 mg 05/14/19 10:00 05/15/19 10:17 Toprol Xl - PO Not Given DAILY [facility] Mupirocin 1 applic 05/14/19 10:00 05/15/19 10:15 Bactroban Ointment (For Decolonization) - NS 05/19/19 09:59 Not Given BID [facility] ASSESSMENT/PLAN: Ms. Álvaro Prado is a 63y/o female with HFrEF (s/p ICD), a-fib, HTN, HLD, CAD (s /p CABG and PCI), s/p NSTEMI, non-IDDM2, COPD (5L NC), and hypothyroidism who presents from [facility] for LIANNA. #acute on chronic HFrEF -severely reduced EF noted on echo in September 2018 -Toprol 12.5mg daily -Lasix 40mg IV daily -hold Entresto for LIANNA -hold spironolactone -monitor BP -sodium control 2g daily -cards following #LIANNA, improving -Cr 2.4-->1.5 -can continue Lasix 40mg IV -hold Entresto -monitor -nephro following #a-fib -Toprol 12.5mg daily -Eliquis 5mg BID #CAD s/p CABG and PCI -Plavix 75mg #hypothyroidism -Synthroid 75mcg #NIDDM2 -normal BGs during admission -monitor DVT Ppx Eliquis FEN PO fluids monitor Cr sodium-controlled diet (2g daily) dispo telemetry code status DNR/DNI, verified with patient today, who is A/Ox3, with witness present Visit type - Emergency Visit Emergency Visit: Yes ED Registration Date: 05/14/19 Care time: The patient presented to the Emergency Department on the above date and was hospitalized for further evaluation of their emergent condition. - New Patient This patient is new to me today: Yes Date on this admission: 05/15/19 - Critical Care Critical Care patient: No - Discharge Referral Referred to [facility] No ATTENDING PHYSICIAN STATEMENT I saw and evaluated the patient. I reviewed the resident's note and discussed the case with the resident. I agree with the resident's findings and plan as documented. SUBJECTIVE: OBJECTIVE: ASSESSMENT AND PLAN:
--- NOTE | 2019-05-15 14:58 | PN ---
Progress Note, Physician History of Present Illness: Pt seen and examined at bedside. She is awake and alert. She feels that her lower ext edema is improving. - Current Medication List Current Medications: Active Medications Acetaminophen (Tylenol -) 650 mg PO Q6H PRN PRN Reason: Fever Or Pain Last Admin: 05/15/19 11:11 Dose: 650 mg Apixaban (Eliquis -) 5 mg PO BID [facility] Last Admin: 05/15/19 10:13 Dose: 5 mg Chlorhexidine Gluconate (Hibiclens For Decolonization -) 1 applic TP HS [facility] Last Admin: 05/14/19 22:07 Dose: 1 applic Clopidogrel Bisulfate (Plavix -) 75 mg PO DAILY [facility] Last Admin: 05/15/19 13:14 Dose: 75 mg Furosemide (Lasix Injection -) 40 mg IVPUSH DAILY [facility] Last Admin: 05/14/19 10:11 Dose: Not Given Levothyroxine Sodium (Synthroid -) 75 mcg PO DAILY@0700 [facility] Last Admin: 05/15/19 06:11 Dose: 75 mcg Metoprolol Succinate (Toprol Xl -) 12.5 mg PO DAILY [facility] Last Admin: 05/15/19 10:17 Dose: Not Given Mupirocin (Bactroban Ointment (For Decolonization) -) 1 applic NS BID [facility] Stop: 05/19/19 09:59 Last Admin: 05/15/19 10:15 Dose: Not Given - Objective Vital Signs: Vital Signs Temperature 98.6 F 05/15/19 09:46 Pulse Rate 127 H 05/15/19 12:50 Respiratory Rate 18 05/15/19 12:50 Blood Pressure 94/70 05/15/19 12:50 O2 Sat by Pulse Oximetry (%) 98 05/15/19 09:00 Constitutional: Yes: Calm Eyes: Yes: Conjunctiva Clear Cardiovascular: Yes: Tachycardia, S1, S2 Respiratory: Yes: On Nasal O2 Gastrointestinal: Yes: Soft, Abdomen, Obese Genitourinary: Yes: WNL Musculoskeletal: Yes: WNL Edema: Yes Edema: LLE: 1+, RLE: 1+ Neurological: Yes: Oriented Psychiatric: Yes: Oriented Labs: CBC, BMP 05/14/19 05:45 05/15/19 08:25 Problem List - Problems (1) LIANNA (acute kidney injury) Code(s): N17.9 - ACUTE KIDNEY FAILURE, UNSPECIFIED Assessment/Plan Current Medications Generic Name Dose Route Start Last Admin Trade Name Freq PRN Reason Stop Dose Admin Acetaminophen 650 mg 05/14/19 03:00 05/15/19 11:11 Tylenol - PO 650 mg Q6H PRN Administration Fever Or Pain Apixaban 5 mg 05/14/19 10:00 05/15/19 10:13 Eliquis - PO 5 mg BID RINA Administration Chlorhexidine Gluconate 1 applic 05/14/19 22:00 05/14/19 22:07 Hibiclens For Decolonization - TP 1 applic HS RINA Administration Clopidogrel Bisulfate 75 mg 05/14/19 10:00 05/15/19 13:14 Plavix - PO 75 mg DAILY RINA Administration Furosemide 40 mg 05/14/19 10:00 05/14/19 10:11 Lasix Injection - IVPUSH Not Given DAILY [facility] Levothyroxine Sodium 75 mcg 05/14/19 07:00 05/15/19 06:11 Synthroid - PO 75 mcg DAILY@0700 RINA Administration Metoprolol Succinate 12.5 mg 05/14/19 10:00 05/15/19 10:17 Toprol Xl - PO Not Given DAILY [facility]INA Mupirocin 1 applic 05/14/19 10:00 05/15/19 10:15 Bactroban Ointment (For Decolonization) - NS 05/19/19 09:59 Not Given BID [facility] Impression 1. LIANNA 2. CHF 3. volume overload 4. HTN 5. HLD 6. DM 7. CAD 8. COPD 9. active smoker 10. anasarca 11. hypotension 12. hx of positive danielle Plan - volume status improving - renal function improving - lasix of bp permitse - 2 gram sodium diet
[2019-05-15] MEDS: CHLORHEXIDINE GLUCONATE 4% CLEANSER FOR DECOLONIZATION TP SCH (21:15)
[2019-05-16] MEDS: LEVOTHYROXINE NA 75 MCG TABLET (FP) PO SCH (06:16)
[2019-05-16 07:02] LABS: ALBUMIN 2.2 g/dl (3.4-5.0); BILIRUBIN,TOTAL 1.5 mg/dL (0.2-1); BLOOD UREA NITROGEN 87.6 mg/dL (7-18); CALCIUM 8.4 mg/dL (8.5-10.1); CREATININE 1.3 mg/dL (0.55-1.3); POTASSIUM 4.6 mmol/L (3.5-5.1); TOT PROT 5.9 g/dl (6.4-8.2)
[2019-05-16] MEDS: metoPROLOL SUCCINATE 25 MG TAB.SR.24H (FP) PO SCH (09:31)
[2019-05-16] MEDS: FUROSEMIDE 40 MG/4 ML INJECTABLE VIAL IVPUSH SCH (09:32)
[2019-05-16] MEDS: APIXABAN 5 MG TABLET PO SCH ×2 (09:32→21:05)
[2019-05-16] MEDS: CLOPIDOGREL BISULFATE 75 MG TABLET (FP) PO SCH (09:32)
--- NOTE | 2019-05-16 13:53 | PN ---
Physical Exam: SUBJECTIVE: Patient seen and examined. She reports breathing is "ok" today. She denies coughing. She continues to have low back pain and leg pain. OBJECTIVE: Vital Signs Period Temp Pulse Resp BP Sys/Santoro Pulse Ox Last 24 Hr 98.2 F-100.5 F 108-124 13-23 73-129/50-89 98-98 GENERAL: The patient is awake, alert, and oriented in no distress. HEAD: Normal with no signs of trauma. EYES: PERRL, extraocular movements intact, conjunctiva clear. ENT: Ears normal, nares patent, moist mucous membranes. NECK: Trachea midline, full range of motion, JVD LUNGS: Breath sounds equal, clear to auscultation anteriorly, no wheezes HEART: Tachycardic and regular rhythm, no murmur appreciated, regular S1, S2 ABDOMEN: Soft, right side tenderness to palpation, nondistended, normoactive bowel sounds, no guarding EXTREMITIES: Trace edema b/l lower extremities NEUROLOGICAL: Cranial nerves II through XII grossly intact. Normal speech. PSYCH: Normal mood, normal affect. SKIN: Warm, dry, normal turgor tele: sinus tachycardia Laboratory Results - last 24 hr 05/15/19 05/16/19 16:21 05:57 Sodium 138 Potassium 4.6 Chloride 101 Carbon Dioxide 30 Anion Gap 7 L BUN 87.6 H Creatinine 1.3 Est GFR (CKD-EPI)AfAm 49.86 Est GFR (CKD-EPI)NonAf 43.02 POC Glucometer 126 Random Glucose 74 Calcium 8.4 L Total Bilirubin 1.5 H AST 15 ALT 14 Alkaline Phosphatase 142 H Total Protein 5.9 L Albumin 2.2 L Active Medications Generic Name Dose Route Start Last Admin Trade Name Freq PRN Reason Stop Dose Admin Acetaminophen 650 mg 05/14/19 03:00 05/15/19 11:11 Tylenol - PO 650 mg Q6H PRN Administration Fever Or Pain Apixaban 5 mg 05/14/19 10:00 05/16/19 09:32 Eliquis - PO 5 mg BID RINA Administration Chlorhexidine Gluconate 1 applic 05/14/19 22:00 05/15/19 21:15 Hibiclens For Decolonization - TP 1 applic HS RINA Administration Clopidogrel Bisulfate 75 mg 05/14/19 10:00 05/16/19 09:32 Plavix - PO 75 mg DAILY RINA Administration Furosemide 40 mg 05/17/19 10:00 Lasix Injection - IVPUSH DAILY [facility]INA Levothyroxine Sodium 75 mcg 05/14/19 07:00 05/16/19 06:16 Synthroid - PO 75 mcg DAILY@0700 RINA Administration Metoprolol Succinate 12.5 mg 05/14/19 10:00 05/16/19 09:31 Toprol Xl - PO 12.5 mg DAILY RINA Administration Mupirocin 1 applic 05/14/19 10:00 05/15/19 21:15 Bactroban Ointment (For Decolonization) - NS 05/19/19 09:59 Not Given BID RINA ASSESSMENT/PLAN: Ms. Álvaro Prado is a 63y/o female with HFrEF (s/p ICD), a-fib, HTN, HLD, CAD (s /p CABG and PCI), s/p NSTEMI, non-IDDM2, COPD (5L NC), and hypothyroidism who presents from [place] for LIANNA. #acute on chronic HFrEF -severely reduced EF noted on echo in September 2018 -weight down by 0.7kg in last 2 days -Toprol 12.5mg daily -Lasix 40mg IV daily -hold Entresto for LIANNA -hold spironolactone -monitor BP -sodium control 2g daily -cards following -CXR tomorrow #sinus tachycardia -monitor -Toprol #LIANNA, improving -Cr 2.4-->1.5-->1.3 -can continue Lasix 40mg IV -hold Entresto -monitor -nephro following #low-grade fever 100.5 today -urine cx negative -CXR #a-fib -Toprol 12.5mg daily -Eliquis 5mg BID #hyperbilirubinemia 1.5 -has been elevated in previous admissions -trend #transaminitis elevated alk phos -downtrending -monitor #CAD s/p CABG and PCI -Plavix 75mg #hypothyroidism -Synthroid 75mcg #NIDDM2 -BG normal/borderline during admission -monitor, will add SSI if needed DVT Ppx Eliquis FEN PO fluids monitor Cr, tbili, alk phos sodium-controlled diet (2g daily) dispo telemetry code status DNR/DNI, verified with patient 05/15/19 Visit type - Emergency Visit Emergency Visit: Yes ED Registration Date: 05/14/19 Care time: The patient presented to the Emergency Department on the above date and was hospitalized for further evaluation of their emergent condition. - New Patient This patient is new to me today: No - Critical Care Critical Care patient: No - Discharge Referral Referred to [facility] Med [facility].C[facility] No ATTENDING PHYSICIAN STATEMENT I saw and evaluated the patient. I reviewed the resident's note and discussed the case with the resident. I agree with the resident's findings and plan as documented. SUBJECTIVE: OBJECTIVE: ASSESSMENT AND PLAN:
--- NOTE | 2019-05-16 14:35 | PN ---
Progress Note, Physician History of Present Illness: Pt seen and examined at bedside. She is awake and alert. She denies shortness of breath. She complains of lower ext edema. - Current Medication List Current Medications: Active Medications Acetaminophen (Tylenol -) 650 mg PO Q6H PRN PRN Reason: Fever Or Pain Last Admin: 05/15/19 11:11 Dose: 650 mg Apixaban (Eliquis -) 5 mg PO BID [facility] Last Admin: 05/16/19 09:32 Dose: 5 mg Chlorhexidine Gluconate (Hibiclens For Decolonization -) 1 applic TP HS [facility] Last Admin: 05/15/19 21:15 Dose: 1 applic Clopidogrel Bisulfate (Plavix -) 75 mg PO DAILY [facility] Last Admin: 05/16/19 09:32 Dose: 75 mg Furosemide (Lasix Injection -) 40 mg IVPUSH DAILY [facility] Levothyroxine Sodium (Synthroid -) 75 mcg PO DAILY@0700 [facility] Last Admin: 05/16/19 06:16 Dose: 75 mcg Metoprolol Succinate (Toprol Xl -) 12.5 mg PO DAILY [facility] Last Admin: 05/16/19 09:31 Dose: 12.5 mg Mupirocin (Bactroban Ointment (For Decolonization) -) 1 applic NS BID [facility] Stop: 05/19/19 09:59 Last Admin: 05/15/19 21:15 Dose: Not Given - Objective Vital Signs: Vital Signs Temperature 100.5 F H 05/16/19 12:00 Pulse Rate 112 H 05/16/19 12:00 Respiratory Rate 18 05/16/19 12:00 Blood Pressure 89/67 L 05/16/19 12:00 O2 Sat by Pulse Oximetry (%) 98 05/16/19 09:00 Constitutional: Yes: Calm Eyes: Yes: Conjunctiva Clear HENT: Yes: Atraumatic Neck: Yes: Supple Cardiovascular: Yes: S1, S2 Respiratory: Yes: On Nasal O2 Gastrointestinal: Yes: Soft Genitourinary: Yes: WNL Musculoskeletal: Yes: WNL Edema: LLE: 1+, RLE: 1+ Neurological: Yes: Oriented Psychiatric: Yes: Oriented Labs: CBC, BMP 05/14/19 05:45 05/16/19 05:57 Problem List - Problems (1) LIANNA (acute kidney injury) Code(s): N17.9 - ACUTE KIDNEY FAILURE, UNSPECIFIED Assessment/Plan Current Medications Generic Name Dose Route Start Last Admin Trade Name Freq PRN Reason Stop Dose Admin Acetaminophen 650 mg 05/14/19 03:00 05/15/19 11:11 Tylenol - PO 650 mg Q6H PRN Administration Fever Or Pain Apixaban 5 mg 05/14/19 10:00 05/16/19 09:32 Eliquis - PO 5 mg BID RINA Administration Chlorhexidine Gluconate 1 applic 05/14/19 22:00 05/15/19 21:15 Hibiclens For Decolonization - TP 1 applic HS RINA Administration Clopidogrel Bisulfate 75 mg 05/14/19 10:00 05/16/19 09:32 Plavix - PO 75 mg DAILY RINA Administration Furosemide 40 mg 05/17/19 10:00 Lasix Injection - IVPUSH DAILY [facility] Levothyroxine Sodium 75 mcg 05/14/19 07:00 05/16/19 06:16 Synthroid - PO 75 mcg DAILY@0700 RINA Administration Metoprolol Succinate 12.5 mg 05/14/19 10:00 05/16/19 09:31 Toprol Xl - PO 12.5 mg DAILY RINA Administration Mupirocin 1 applic 05/14/19 10:00 05/15/19 21:15 Bactroban Ointment (For Decolonization) - NS 05/19/19 09:59 Not Given BID [facility] Impression 1. LIANNA 2. CHF 3. volume overload 4. HTN 5. HLD 6. DM 7. CAD 8. COPD 9. active smoker 10. anasarca 11. hypotension 12. hx of positive danielle Plan - renal function is improving - cont lasix - compliance is a problem - will need outpt follow up - monitor bp - 2 gram sodium diet
[2019-05-16] MEDS: MUPIROCIN 2% TOPICAL OINTMENT FOR DECOLONIZATION NS SCH ×2 (15:00→21:05)
[2019-05-16] MEDS ORDERED: ACETAMINOPHEN 1000 MG/100 ML VIAL (NON FORMULARY) IVPB ONE (15:45)
--- NOTE | 2019-05-16 19:21 | PN ---
Teaching Attending Note Name of Resident: Juany Herrera ATTENDING PHYSICIAN STATEMENT I saw and evaluated the patient. I reviewed the resident's note and discussed the case with the resident. I agree with the resident's findings and plan as documented. SUBJECTIVE: No fever or chills. No SOB . has pain in lower back. and feet OBJECTIVE: NAD CV: RRR. + JVD Lungs: CTAB Ext: pitting edema especially in thighs Abd: soft, thick edematous skin, TTP in all quadrants. MS: TTP in paraspinal muscles in lumbar area. A/P 61 year old female, with a significant past medical history of hypertension, hypercholesterolemia, CAD, [place](X2), s/p defibrillator/pacemaker and CABG, CHF, DM II, kidney stones, peripheral neuropathy, recently diagnosed A fib, hypothyroidism, and non compliance who presented with SOB , AMS, and was found to have Acute CHF and hypotension 1- Acute on chronic systolic CHF: - cont lasix when possible - monitor weight and I&O - hold Entresto - cont low dose toprol with holding parameters - hold spironolactone for now 2- H/o A fib: tachycardic - cont low dose toprol ( 12.5 ) with holding parameters. - cont eliquis - monitor 3- LIANNA: likely cardiorenal sx. monitor with diuresis . Cr improved 4- leukocytosis. resolved. low grade fever of unknown etiology. if it recurs will do a full w/u. UA /cx neg on admission cxray in am tele monitoring
[2019-05-16] MEDS ORDERED: MORPHINE SULFATE 2 MG/ML VIAL IVPUSH ONE (19:53)
[2019-05-16] MEDS: CHLORHEXIDINE GLUCONATE 4% CLEANSER FOR DECOLONIZATION TP SCH (21:05)
[2019-05-17] MEDS ORDERED: MORPHINE SULFATE 2 MG/ML VIAL IVPUSH ONE (04:22)
[2019-05-17 05:53] LABS: HEMATOCRIT 30.9 % (32.4-45.2); HEMOGLOBIN 9.9 GM/dL (10.7-15.3); MCH 27.5 pg (25.7-33.7); MEAN CELL VOLUME 85.9 fl (80-96); MEAN PLT VOLUME 6.9 fl (7.5-11.1); PLATELET COUNT 312 K/MM3 (134-434); RBC 3.59 M/mm3 (3.60-5.2); RDW 15.3 % (11.6-15.6); WHITE BLOOD COUNT 13.3 K/mm3 (4.0-10.0)
[2019-05-17] MEDS: LEVOTHYROXINE NA 75 MCG TABLET (FP) PO SCH (06:13)
[2019-05-17 06:20] LABS: ALBUMIN 2.1 g/dl (3.4-5.0); BILIRUBIN,TOTAL 1.8 mg/dL (0.2-1); BLOOD UREA NITROGEN 88.3 mg/dL (7-18); CALCIUM 8.4 mg/dL (8.5-10.1); CREATININE 1.3 mg/dL (0.55-1.3); POTASSIUM 4.6 mmol/L (3.5-5.1); TOT PROT 5.7 g/dl (6.4-8.2)
[2019-05-17] MEDS: MUPIROCIN 2% TOPICAL OINTMENT FOR DECOLONIZATION NS SCH ×2 (09:39→22:02)
[2019-05-17] MEDS: CLOPIDOGREL BISULFATE 75 MG TABLET (FP) PO SCH (09:39)
[2019-05-17] MEDS: APIXABAN 5 MG TABLET PO SCH ×2 (09:39→22:05)
[2019-05-17] MEDS: metoPROLOL SUCCINATE 25 MG TAB.SR.24H (FP) PO SCH (09:40)
[2019-05-17] MEDS ORDERED: FUROSEMIDE 40 MG/4 ML INJECTABLE VIAL IVPUSH SCH (10:00)
--- NOTE | 2019-05-17 13:49 | PN ---
Progress Note (short form) - Note Progress Note: Coverage for Dr. Ace Cage Chief Complaint: Events noted, notes reviewed, asked by house staff to evaluate patient for refractory class II-III NYHA classification bi-ventricular failure, patient has no specific complaints, appears restless, rhythm appears to be atrial flutter with rapid ventricular response History of Present Illness: Seen and examined on telemetry. Events noted, notes reviewed, asked by house staff to evaluate patient for refractory class II-III NYHA classification bi- ventricular failure, patient has no specific complaints, appears restless, rhythm appears to be atrial flutter with rapid ventricular response Asked to evaluate inotrope utilization, hypotension noted - Current Medication List Current Medications Acetaminophen (Tylenol -) 650 mg PO Q6H PRN PRN Reason: Fever Or Pain Last Admin: 05/15/19 11:11 Dose: 650 mg Apixaban (Eliquis -) 5 mg PO BID [facility] Last Admin: 05/17/19 09:39 Dose: 5 mg Chlorhexidine Gluconate (Hibiclens For Decolonization -) 1 applic TP HS [facility] Last Admin: 05/16/19 21:05 Dose: 1 applic Clopidogrel Bisulfate (Plavix -) 75 mg PO DAILY [facility] Last Admin: 05/17/19 09:39 Dose: 75 mg Furosemide (Lasix Injection -) 40 mg IVPUSH DAILY [facility] Last Admin: 05/17/19 10:07 Dose: Not Given Levothyroxine Sodium (Synthroid -) 75 mcg PO DAILY@0700 [facility] Last Admin: 05/17/19 06:13 Dose: 75 mcg Metoprolol Succinate (Toprol Xl -) 12.5 mg PO DAILY [facility] Last Admin: 05/17/19 09:40 Dose: Not Given Mupirocin (Bactroban Ointment (For Decolonization) -) 1 applic NS BID [facility] Stop: 05/19/19 09:59 Last Admin: 05/17/19 09:39 Dose: Not Given Review of Systems Unable to obtain - Objective Vital Signs: Last Vital Signs Temp Pulse Resp BP Pulse Ox 98.0 F 118 H 14 84/54 L 100 05/17/19 06:13 05/17/19 07:30 05/17/19 07:30 05/17/19 07:30 05/17/19 09:00 Intake & Output 05/14/19 05/15/19 05/16/19 12/28/19 23:59 23:59 23:59 23:59 Intake Total 360 350 920 Output Total 100 Balance 260 350 920 Weight 200 lb 6 oz 198 lb 12.8 oz Neck: Supple Negative JVD No Bruit Cardiovascular: S1 S2 Irregularly Irregular grade 3/6 SM apical with S3 gallop Respiratory: Diminished Breath Sounds at the Bases Gastrointestinal: Soft Benign Normal Bowel Sounds Extremities: 1+ Edema Labs: CBC, BMP 05/17/19 05:35 05/17/19 05:35 Hepatic Panel Total Bilirubin 1.8 mg/dL (0.2-1) H 05/17/19 05:35 AST 16 U/L (15-37) 05/17/19 05:35 ALT 13 U/L (13-61) 05/17/19 05:35 Alkaline Phosphatase 152 U/L (45-117) H 05/17/19 05:35 Albumin 2.1 g/dl (3.4-5.0) L 05/17/19 05:35 Assessment/Plan ASSESSMENT: 1. Acute on chronic class II-III NYHA classification LV systolic heart failure, refractory- severe MR- ischemic dilated cardiomyopathy post prophylactic ICD 2. Acute on chronic class II-III NYHA classification RV systolic failure, refractory- severe TR 3. CAD post CABG/PCI angina pectoris 4. Persistent atrial fibrillation/atrial flutter with rapid ventricular response on A/C with DOAC's/Eliquis 5. Hypertensive heart disease, currently hypotensive/asymptomatic 6. DM 7. Hypercholesterolemia 8. Hypothyroidism 9. COPD 10. Acute on chronic kidney disease with pre-renal azotemia 11. Anemia PLAN: 1. D/C Toprol XL and initiate Coreg, hemodynamics permitting (acceptable BP systolic of 80 mmHg and above) 2. Reinitiate Entresto, hemodynamics permitting with close monitoring of renal function and electrolytes 3. Initiate Amiodarone to assist with rate control of persistent atrial fibrillation/atrial flutter 4. Continue Lasix IV with close monitoring of renal function and electrolytes 5. Recommend resumption of Aldactone eventually provided renal function remains stable with Entresto therapy reinitiation 6. Continue Eliquis at the above noted dosage 7. Overall poor prognosis considering her advanced heart failure syndrome Moises Grossman MD
[2019-05-17] MEDS: ACETAMINOPHEN 325 MG TABLET (FP) PO PRN (13:54)
--- NOTE | 2019-05-17 15:10 | PN ---
Teaching Attending Note Name of Resident: Reggie Bedolla ATTENDING PHYSICIAN STATEMENT I saw and evaluated the patient. I reviewed the resident's note and discussed the case with the resident. I agree with the resident's findings and plan as documented. SUBJECTIVE: pain in legs . NO SOB OBJECTIVE: NAD CV: RRR. + JVD Lungs: minimal crackles at bases , no wheezes Ext: pitting edema especially in thighs Abd: soft, thick edematous skin, TTP in all quadrants. A/P 61 year old female, with a significant past medical history of hypertension, hypercholesterolemia, CAD, [place](X2), s/p defibrillator/pacemaker and CABG, CHF, DM II, kidney stones, peripheral neuropathy, recently diagnosed A fib, hypothyroidism, and non compliance who presented with SOB , AMS, and was found to have Acute CHF and hypotension 1- Acute on chronic systolic CHF: - cont lasix - monitor weight and I&O - appreciate card input : resume Entresto, add coreg in place of toprol - acceptable BP > 80 . hold meds if SBP < 80 Entresto - cont to hold spironolactone 2- H/o A fib: tachycardic - as above, coreg. - amiodarone added - cont Eliquis 3- LIANNA: likely cardiorenal sx . Cr improved 4- Leukocytosis. unclear etiology. no decub ulcers, no PNA, cxray reviewed. No suspicion for cholecystitis , elevated bili and Alk phos are due to passive congestion probably, and have been chronically elevated . No UTI. - monitor for now. - although has asicits, her abd pain is at her base line. I doubt SBP. 5- HLOC
--- NOTE | 2019-05-17 16:09 | PN ---
Physical Exam: SUBJECTIVE: Patient seen and examined NAEON. Tele showing tachycardia Endorses lower back pain. OBJECTIVE: Vital Signs Period Temp Pulse Resp BP Sys/Santoro Pulse Ox Last 24 Hr 98.0 F-99.0 F 117-121 14-18 67-88/43-63 98-100 GENERAL: The patient is awake, alert, no acte distress. HEAD: Normal with no signs of trauma. EYES: PERRL, extraocular movements intact, conjunctiva clear. ENT: Ears normal, nares patent, moist mucous membranes. NECK: Trachea midline, full range of motion. JVD LUNGS: Breath sounds equal, clear to auscultation anteriorly, no wheezes. Mild crackles of b/l lung bases HEART: Tachycardic and regular rhythm. S1, S2 with possible holosystolic murmur ABDOMEN: Soft, nondistended, normoactive bowel sounds, nonTTP [id number], Neg Stone's, no guarding EXTREMITIES: Trace nonpitting edema b/l lower extremities NEUROLOGICAL: normal speech PSYCH: Normal mood, normal affect. SKIN: Warm, dry, normal turgor tele: sinus tachycardia Laboratory Results - last 24 hr 05/17/19 05/17/19 05:35 05:35 WBC 13.3 H RBC 3.59 L Hgb 9.9 L Hct 30.9 L MCV 85.9 MCH 27.5 MCHC 32.0 RDW 15.3 Plt Count 312 MPV 6.9 L Sodium 138 Potassium 4.6 Chloride 102 Carbon Dioxide 29 Anion Gap 7 L BUN 88.3 H Creatinine 1.3 Est GFR (CKD-EPI)AfAm 49.86 Est GFR (CKD-EPI)NonAf 43.02 Random Glucose 75 Calcium 8.4 L Total Bilirubin 1.8 H AST 16 ALT 13 Alkaline Phosphatase 152 H Total Protein 5.7 L Albumin 2.1 L Active Medications Generic Name Dose Route Start Last Admin Trade Name Freq PRN Reason Stop Dose Admin Acetaminophen 650 mg 05/14/19 03:00 05/17/19 13:54 Tylenol - PO 650 mg Q6H PRN Administration Fever Or Pain Amiodarone HCl 400 mg 05/17/19 22:00 Cordarone - PO BID RINA Apixaban 5 mg 05/14/19 10:00 05/17/19 09:39 Eliquis - PO 5 mg BID RINA Administration Carvedilol 3.125 mg 12/28/19 22:00 Coreg - PO BID [facility] Chlorhexidine Gluconate 1 applic 05/14/19 22:00 05/16/19 21:05 Hibiclens For Decolonization - TP 1 applic HS RINA Administration Clopidogrel Bisulfate 75 mg 05/14/19 10:00 05/17/19 09:39 Plavix - PO 75 mg DAILY RINA Administration Furosemide 40 mg 05/17/19 10:00 05/17/19 10:07 Lasix Injection - IVPUSH Not Given DAILY [facility] Levothyroxine Sodium 75 mcg 05/14/19 07:00 05/17/19 06:13 Synthroid - PO 75 mcg DAILY@0700 RINA Administration Mupirocin 1 applic 05/14/19 10:00 05/17/19 09:39 Bactroban Ointment (For Decolonization) - NS 05/19/19 09:59 Not Given BID [facility] Sacubitril/Valsartan 1 tab 05/17/19 22:00 Entresto 24 Mg-26 Mg Tablet PO BID [facility] ASSESSMENT/PLAN: 63y/o female with HFrEF (s/p ICD), a-fib, HTN, HLD, CAD (s/p CABG and PCI), s/p NSTEMI, non-IDDM2, COPD (5L NC), and hypothyroidism who presents from [facility] for LIANNA. #acute on chronic HFrEF > CXR(05/17/19): cardiolmegaly, prominent patti w/ congestive changes, AICD, dense left base(fluid vs atelectasis vs infiltrate) -severely reduced EF noted on echo in September 2018 -weight down by 0.6kg since admission -Toprol 12.5mg daily --> Carvedilol 3.125mg QD -Lasix 40mg IV daily(to be held if SBP <80) -hold Entresto for LIANNA --> restarted on 05/17/19 -hold spironolactone -cardiology([facility]) consult: --d/C Toprol XL and initiate Coreg, hemodynamics permitting (acceptable BP systolic of 80 mmHg and above) --Reinitiate Entresto, hemodynamics permitting with close monitoring of renal function and electrolytes --Initiate Amiodarone to assist with rate control of persistent atrial fibrillation/atrial flutter --Continue Lasix IV with close monitoring of renal function and electrolytes --resumption of Aldactone eventually provided renal function remains stable with Entresto therapy reinitiation --Overall poor prognosis considering her advanced heart failure syndrome #persistent hypotension --likely 2/2 sever HFrEF - keep SBP> 80, as long pt is staying in bed and not syncopizing #sinus tachycardia -monitor -carvedilol + amiodarone #LIANNA, improving -Cr 2.4-->1.5-->1.3 -can continue Lasix 40mg IV -monitor -nephro following #low-grade fever 100.5 today -urine cx negative -CXR neg for acute changes -venous duplex to r/o DVT --pending #a-fib -Toprol 12.5mg daily --> changed to coreg -Eliquis 5mg BID #hyperbilirubinemia > Tbil: 1.5 ... 1.8 > US RUQ(05/17/19): enlarged liver, "contracted GB", ascites - monitor # elevated alk phos --unlikely biliary path(s/p lap naomi) -downtrending -monitor #CAD s/p CABG and PCI -Plavix 75mg #hypothyroidism -Synthroid 75mcg #NIDDM2 -BG normal/borderline during admission -monitor, will add SSI if needed DVT Ppx Eliquis FEN monitor Cr, tbili, alk phos sodium-controlled diet (2g daily) dispo telemetry code status DNR/DNI, verified with patient 05/15/19 Visit type - Emergency Visit Emergency Visit: No - New Patient This patient is new to me today: No - Critical Care Critical Care patient: Yes Total Critical Care Time (in minutes): 37 Critical Care Statement: The care of this patient involved high complexity decision making to prevent further life threatening deterioration of the patient 's condition and/or to evaluate & treat vital organ system(s) failure or risk of failure. ATTENDING PHYSICIAN STATEMENT I saw and evaluated the patient. I reviewed the resident's note and discussed the case with the resident. I agree with the resident's findings and plan as documented. SUBJECTIVE: OBJECTIVE: ASSESSMENT AND PLAN:
[2019-05-17] MEDS ORDERED: ACETAMINOPHEN 500 MG TABLET (FP) PO ONE (21:08)
[2019-05-17] MEDS ORDERED: LIDOCAINE 5% TOPICAL PATCH TP ONE (21:08)
[2019-05-17] MEDS: CARVEDILOL 3.125 MG TABLET (FP) PO SCH (22:02)
[2019-05-17] MEDS: AMIODARONE HCL 200 MG TABLET (FP) PO SCH (22:04)
[2019-05-17] MEDS: CHLORHEXIDINE GLUCONATE 4% CLEANSER FOR DECOLONIZATION TP SCH (22:05)
[2019-05-17] MEDS: SACUBITRIL/VALSARTAN 24 MG-26 MG TABLET PO SCH (22:05)
[2019-05-17] MEDS: LIDOCAINE PATCH REMOVAL MC SCH (23:10)
[2019-05-18 06:04] LABS: BASO % 0.3 % (0-2.0); HEMATOCRIT 31.3 % (32.4-45.2); LYMPH % 4.8 % (8-40); MCH 27.4 pg (25.7-33.7); MCHC 31.9 g/dl (32.0-36.0); MEAN CELL VOLUME 85.9 fl (80-96); MEAN PLT VOLUME 7.3 fl (7.5-11.1); MONO % 13.2 % (3.8-10.2); NEUT % 81.7 % (42.8-82.8); PLATELET COUNT 314 K/MM3 (134-434); RBC 3.64 M/mm3 (3.60-5.2); WHITE BLOOD COUNT 11.5 K/mm3 (4.0-10.0)
[2019-05-18 06:22] LABS: ALBUMIN 2.1 g/dl (3.4-5.0); BILIRUBIN,TOTAL 1.7 mg/dL (0.2-1); CALCIUM 8.6 mg/dL (8.5-10.1); CREATININE 1.4 mg/dL (0.55-1.3); MAGNESIUM 2.3 mg/dL (1.8-2.4); PHOSPHOROUS 3.7 mg/dL (2.5-4.9); POTASSIUM 4.6 mmol/L (3.5-5.1); TOT PROT 5.8 g/dl (6.4-8.2)
[2019-05-18] MEDS: LEVOTHYROXINE NA 75 MCG TABLET (FP) PO SCH (06:24)
--- NOTE | 2019-05-18 07:17 | PN ---
Progress Note (short form) - Note Progress Note: Coverage for Dr. Ace Cage Chief Complaint: Events noted, notes reviewed, complaining of low back discomfort and bilateral lower extremity discomfort, refractory class II-III NYHA classification bi-ventricular failure, rhythm/persists appears to be atrial flutter with rapid ventricular response History of Present Illness: Seen and examined on telemetry. Events noted, notes reviewed, complaining of low back discomfort and bilateral lower extremity discomfort, refractory class II-III NYHA classification bi-ventricular failure, rhythm/persists appears to be atrial flutter with rapid ventricular response Dobutamine utilization may be limited related to persistent tachycardia, hypotension noted patient asymptomatic - Current Medication List Current Medications Acetaminophen (Tylenol -) 650 mg PO Q6H PRN PRN Reason: Fever Or Pain Last Admin: 05/17/19 13:54 Dose: 650 mg Amiodarone HCl (Cordarone -) 400 mg PO BID [facility] Last Admin: 05/17/19 22:04 Dose: 400 mg Apixaban (Eliquis -) 5 mg PO BID [facility] Last Admin: 05/17/19 22:05 Dose: 5 mg Carvedilol (Coreg -) 3.125 mg PO BID [facility] Last Admin: 05/17/19 22:02 Dose: Not Given Chlorhexidine Gluconate (Hibiclens For Decolonization -) 1 applic TP HS [facility] Last Admin: 05/17/19 22:05 Dose: 1 applic Clopidogrel Bisulfate (Plavix -) 75 mg PO DAILY [facility] Last Admin: 05/17/19 09:39 Dose: 75 mg Furosemide (Lasix Injection -) 40 mg IVPUSH DAILY [facility] Levothyroxine Sodium (Synthroid -) 75 mcg PO DAILY@0700 [facility] Last Admin: 05/18/19 06:24 Dose: 75 mcg Miscellaneous (Lidoderm Patch Removal) 1 each MC DAILY@2200 [facility] Last Admin: 05/17/19 23:10 Dose: Not Given Mupirocin (Bactroban Ointment (For Decolonization) -) 1 applic NS BID [facility] Stop: 05/19/19 09:59 Last Admin: 05/17/19 22:02 Dose: Not Given Sacubitril/Valsartan (Entresto 24 Mg-26 Mg Tablet) 1 tab PO BID [facility] Last Admin: 05/17/19 22:05 Dose: Not Given Review of Systems Constitutional: no symptoms reported Respiratory: denies: Cough or Sputum Production Cardiovascular: as noted above Gastrointestinal: denies Nausea, Vomiting, Diarrhea, Constipation or Abdominal Pain Genitourinary: no symptoms reported Musculoskeletal: as noted above Endocrine: no symptoms reported - Objective Vital Signs: Last Vital Signs Temp Pulse Resp BP Pulse Ox 97.6 F 129 H 15 82/51 L 100 05/17/19 23:00 05/18/19 06:00 05/18/19 06:00 05/18/19 06:00 05/17/19 20:44 Intake & Output 05/15/19 05/16/19 05/17/19 05/18/19 23:59 23:59 23:59 23:59 Intake Total 350 920 340 200 Balance 350 920 340 200 Weight 198 lb 12.8 oz 194 lb 14.218 oz Neck: Supple Negative JVD No Bruit Cardiovascular: S1 S2 Irregularly Irregular grade 3/6 SM apical with S3 gallop Respiratory: Diminished Breath Sounds at the Bases Gastrointestinal: Soft Benign Normal Bowel Sounds Extremities: Trace-1+ Edema Labs: CBC, BMP 05/18/19 05:20 05/18/19 05:20 Hepatic Panel Total Bilirubin 1.7 mg/dL (0.2-1) H 05/18/19 05:20 AST 19 U/L (15-37) 05/18/19 05:20 ALT 15 U/L (13-61) 05/18/19 05:20 Alkaline Phosphatase 162 U/L (45-117) H 05/18/19 05:20 Albumin 2.1 g/dl (3.4-5.0) L 05/18/19 05:20 CBC, BMP 05/17/19 05:35 05/17/19 05:35 Hepatic Panel Total Bilirubin 1.8 mg/dL (0.2-1) H 05/17/19 05:35 AST 16 U/L (15-37) 05/17/19 05:35 ALT 13 U/L (13-61) 05/17/19 05:35 Alkaline Phosphatase 152 U/L (45-117) H 05/17/19 05:35 Albumin 2.1 g/dl (3.4-5.0) L 05/17/19 05:35 Assessment/Plan ASSESSMENT: 1. Acute on chronic class II-III NYHA classification LV systolic heart failure, refractory- severe MR- ischemic dilated cardiomyopathy post prophylactic ICD, clinically improving 2. Acute on chronic class II-III NYHA classification RV systolic failure, refractory- severe TR 3. CAD post CABG/PCI angina pectoris 4. Persistent atrial fibrillation/atrial flutter with rapid ventricular response on A/C with DOAC's/Eliquis, initiated on Amiodarone therapy to assist with rate control 5. Hypertensive heart disease, currently hypotensive/asymptomatic 6. DM 7. Hypercholesterolemia 8. Hypothyroidism 9. COPD 10. Acute on chronic kidney disease with pre-renal azotemia 11. Anemia PLAN: 1. Continue Coreg and titrate dosage as tolerated, hemodynamics permitting ( acceptable BP systolic of 80 mmHg and above) 2. Continue Entresto, hemodynamics permitting with close monitoring of renal function and electrolytes 3. Continue Amiodarone at 400 mg twice daily for 1 week and then decrease dosage to 200 mg daily to assist with rate control of persistent atrial fibrillation/atrial flutter 4. Continue Lasix IV with close monitoring of renal function and electrolytes 5. As outlined in yesterday's note recommend resumption of Aldactone eventually provided renal function remains stable with Entresto therapy reinitiation 6. Continue Eliquis at the above noted dosage 7. Overall poor prognosis considering her advanced heart failure syndrome Moises Grossman MD
[2019-05-18] MEDS: AMIODARONE HCL 200 MG TABLET (FP) PO SCH ×2 (09:33→21:35)
[2019-05-18] MEDS: CARVEDILOL 3.125 MG TABLET (FP) PO SCH ×2 (09:33→22:56)
[2019-05-18] MEDS: SACUBITRIL/VALSARTAN 24 MG-26 MG TABLET PO SCH ×2 (09:34→21:35)
[2019-05-18] MEDS: APIXABAN 5 MG TABLET PO SCH ×2 (09:34→21:35)
[2019-05-18] MEDS: CLOPIDOGREL BISULFATE 75 MG TABLET (FP) PO SCH (09:34)
[2019-05-18] MEDS: FUROSEMIDE 40 MG/4 ML INJECTABLE VIAL IVPUSH SCH (09:35)
[2019-05-18] MEDS: MUPIROCIN 2% TOPICAL OINTMENT FOR DECOLONIZATION NS SCH ×2 (09:35→22:56)
--- NOTE | 2019-05-18 13:52 | PN ---
Progress Note (short form) - Note Progress Note: Subjective: cont to have no SOB. have pain in legs and her sacral area Objective: Vital Signs: Last Vital Signs Temp Pulse Resp BP Pulse Ox 97.6 F 129 H 15 82/51 L 100 05/17/19 23:00 05/18/19 06:00 05/18/19 08:24 05/18/19 06:00 05/18/19 08:24 Laboratory Results - last 24 hr 05/18/19 05/18/19 05:20 05:20 WBC 11.5 H RBC 3.64 Hgb 10.0 L Hct 31.3 L MCV 85.9 MCH 27.4 MCHC 31.9 L RDW 16.0 H Plt Count 314 MPV 7.3 L Absolute Neuts (auto) 9.4 H Neutrophils % 81.7 Lymphocytes % 4.8 L D Monocytes % 13.2 H Eosinophils % 0.0 Basophils % 0.3 Nucleated RBC % 0 Sodium 137 Potassium 4.6 Chloride 101 Carbon Dioxide 30 Anion Gap 5 L BUN 89.0 H Creatinine 1.4 H Est GFR (CKD-EPI)AfAm 45.58 Est GFR (CKD-EPI)NonAf 39.33 Random Glucose 79 Calcium 8.6 Phosphorus 3.7 Magnesium 2.3 Total Bilirubin 1.7 H AST 19 ALT 15 Alkaline Phosphatase 162 H Total Protein 5.8 L Albumin 2.1 L Intake & Output 05/15/19 05/16/19 05/17/19 05/18/19 23:59 23:59 23:59 23:59 Intake Total 350 920 340 200 Balance 350 920 340 200 Weight 198 lb 12.8 oz 194 lb 14.218 oz Physical Exam: NAD CV: RRR. + JVD Lungs: refused to sit ot roll over for back exam. anteriorly, her lungs are clear Ext: pitting edema especially in thighs. Abd: soft, thick edematous skin,NT today A/P 61 year old female, with a significant past medical history of hypertension, hypercholesterolemia, CAD, TN(X2), s/p defibrillator/pacemaker and CABG, CHF, DM II, kidney stones, peripheral neuropathy, recently diagnosed A fib, hypothyroidism, and non compliance who presented with SOB , AMS, and was found to have Acute CHF and hypotension 1- Acute on chronic systolic CHF: - cont lasix . did not receive her dose yesterday. did today - cont Entresto, and coreg - acceptable BP > 80 . hold meds if SBP < 80 - cont to hold spironolactone. 2- H/o A fib: tachycardic. - as above, coreg. - cont amio, remains tachy. - tele with no events other than A fib - cont Eliquis 3- LIANNA: likely cardiorenal sx . Cr worse as she has been missing her lasix dosing 4- Leukocytosis. unclear etiology.resolving off Abx. no fever. No abd tenderness today. monitor 5- HLOC Visit type - Emergency Visit Emergency Visit: Yes ED Registration Date: 05/14/19 Care time: The patient presented to the Emergency Department on the above date and was hospitalized for further evaluation of their emergent condition. - New Patient This patient is new to me today: No - Critical Care Critical Care patient: No
[2019-05-18] MEDS: ACETAMINOPHEN 325 MG TABLET (FP) PO PRN ×2 (15:30→21:35)
[2019-05-18] MEDS: LIDOCAINE PATCH REMOVAL MC SCH (21:35)
[2019-05-18] MEDS: CHLORHEXIDINE GLUCONATE 4% CLEANSER FOR DECOLONIZATION TP SCH (21:35)
[2019-05-19] MEDS ORDERED: traMADol HCL 50 MG TABLET PO ONE (00:45)
[2019-05-19] MEDS: LEVOTHYROXINE NA 75 MCG TABLET (FP) PO SCH (06:02)
[2019-05-19 06:26] LABS: BASO % 0.2 % (0-2.0); HEMATOCRIT 30.1 % (32.4-45.2); HEMOGLOBIN 9.7 GM/dL (10.7-15.3); LYMPH % 5.2 % (8-40); MCH 27.7 pg (25.7-33.7); MCHC 32.1 g/dl (32.0-36.0); MEAN CELL VOLUME 86.2 fl (80-96); MEAN PLT VOLUME 7.4 fl (7.5-11.1); MONO % 13.3 % (3.8-10.2); NEUT % 81.3 % (42.8-82.8); PLATELET COUNT 295 K/MM3 (134-434); RBC 3.49 M/mm3 (3.60-5.2); WHITE BLOOD COUNT 10.7 K/mm3 (4.0-10.0)
[2019-05-19 06:47] LABS: BLOOD UREA NITROGEN 93.4 mg/dL (7-18); CALCIUM 8.3 mg/dL (8.5-10.1); CREATININE 1.8 mg/dL (0.55-1.3); POTASSIUM 4.3 mmol/L (3.5-5.1)
--- NOTE | 2019-05-19 09:42 | PN ---
Teaching Attending Note Name of Resident: Juany Herrera ATTENDING PHYSICIAN STATEMENT I saw and evaluated the patient. I reviewed the resident's note and discussed the case with the resident. I agree with the resident's findings and plan as documented. SUBJECTIVE: No fever or chills. No cp or SOB . " I just woke up, I don't know how I feel yet " No events over night OBJECTIVE: NAD CV: RRR. 2/6 Sm at LLSB , + JVD Lungs: could nto turn fro lung exam, but clear anteriorly Ext: pitting edema especially in thighs. Abd: soft, thick edematous skin, NT , slightly distended A/P 61 year old female, with a significant past medical history of hypertension, hypercholesterolemia, CAD, AL(X2), s/p defibrillator/pacemaker and CABG, CHF, DM II, kidney stones, peripheral neuropathy, recently diagnosed A fib, hypothyroidism, and non compliance who presented with SOB , AMS, and was found to have Acute CHF and hypotension 1- Acute on chronic systolic CHF: - cont lasix as blood pressure allows - cont Entresto, and coreg - acceptable BP > 80 . hold meds if SBP < 80 - cont to hold spironolactone. 2- H/o A fib: tachycardia improved -- cont coreg as toelrated - cont Amio 400 mg x total of 1 week .day 3 now, then switch to 200 daily - tele with no events other than A fib - cont Eliquis 3- LIANNA: likely cardiorenal syndroeme . Cr worse as she has not been adequately diuresed 4- Leukocytosis. improving, no UTI, PNA. no DVT., no more fever . monitor off Abx 5- HLOC
[2019-05-19] MEDS: APIXABAN 5 MG TABLET PO SCH ×2 (10:59→21:41)
[2019-05-19] MEDS: SACUBITRIL/VALSARTAN 24 MG-26 MG TABLET PO SCH ×2 (10:59→21:42)
[2019-05-19] MEDS: AMIODARONE HCL 200 MG TABLET (FP) PO SCH ×2 (10:59→21:41)
[2019-05-19] MEDS: CARVEDILOL 3.125 MG TABLET (FP) PO SCH ×2 (10:59→21:42)
[2019-05-19] MEDS: CLOPIDOGREL BISULFATE 75 MG TABLET (FP) PO SCH (10:59)
[2019-05-19] MEDS: FUROSEMIDE 40 MG/4 ML INJECTABLE VIAL IVPUSH SCH (11:00)
--- NOTE | 2019-05-19 11:43 | PN ---
Progress Note, Physician Chief Complaint: Pt A&OOs3; wnats to go home. No chest pain; feet and back/buttocks have no pain presently. History of Present Illness: The pt is a 63 yr old black woman with PM history of HFrEF (severely reduced LVEF; s/p ICD), A-fib, sleep apnea, HTN, HLD, CAD s/p CABG and PCI, s/p NSTEMI, renal dysfunction (hx cardiorenal syndrome), HTN, DM, COPD (5L NC), hypothyroidism, obesity, noncompliance to diet and medications, depression, cigarette smoker, who presents from [facility] for evaluation of LIANNA and NH reports they are "out of fluids to give patient". Baseline Cr 0.9, Cr at [facility] today 2.4. Pt reports generalized fatigue and chronic foot pain (admitted recently for similar complaints). Pt reports whole body pain Reports intermittent SOB, no acute change Denies chest pain, current SOB, N/V, dysuria, hematuria, diarrhea, or changes in sensation - Current Medication List Current Medications: Active Medications Acetaminophen (Tylenol -) 650 mg PO Q6H PRN PRN Reason: Fever Or Pain Last Admin: 05/18/19 21:35 Dose: 650 mg Amiodarone HCl (Cordarone -) 400 mg PO BID [facility] Last Admin: 05/19/19 10:59 Dose: 400 mg Apixaban (Eliquis -) 5 mg PO BID [facility] Last Admin: 05/19/19 10:59 Dose: 5 mg Carvedilol (Coreg -) 3.125 mg PO BID [facility] Last Admin: 05/19/19 10:59 Dose: 3.125 mg Chlorhexidine Gluconate (Hibiclens For Decolonization -) 1 applic TP HS [facility] Last Admin: 05/18/19 21:35 Dose: 1 applic Clopidogrel Bisulfate (Plavix -) 75 mg PO DAILY [facility] Last Admin: 05/19/19 10:59 Dose: 75 mg Furosemide (Lasix Injection -) 40 mg IVPUSH DAILY [facility] Last Admin: 05/19/19 11:00 Dose: 40 mg Levothyroxine Sodium (Synthroid -) 75 mcg PO DAILY@0700 [facility] Last Admin: 05/19/19 06:02 Dose: 75 mcg Miscellaneous (Lidoderm Patch Removal) 1 each MC DAILY@2200 [facility] Last Admin: 05/18/19 21:35 Dose: 1 each Sacubitril/Valsartan (Entresto 24 Mg-26 Mg Tablet) 1 tab PO BID [facility] Last Admin: 05/19/19 10:59 Dose: 1 tab - Objective Vital Signs: Vital Signs Temperature 97 F L 05/19/19 05:00 Pulse Rate 104 H 05/19/19 10:00 Respiratory Rate 16 05/19/19 10:00 Blood Pressure 82/49 L 05/19/19 10:00 O2 Sat by Pulse Oximetry (%) 100 05/18/19 21:00 Constitutional: Yes: Anxious Eyes: Yes: WNL Musculoskeletal: Yes: Muscle Weakness Extremities: Yes: Cool Edema: Yes Edema: LLE: 1+, RLE: 1+ Peripheral Pulses WNL: No Peripheral Pulses: Left Doralis Pedis: 1+, Right Dorsalis Pedis: 1+ Neurological: Yes: Alert, Oriented, Weakness Psychiatric: Yes: Alert, Oriented, Other (depression; anger) Labs: CBC, BMP 05/19/19 05:35 05/19/19 05:35 Abnormal Lab Results 05/19/19 05/19/19 05:35 05:35 WBC 10.7 H RBC 3.49 L Hgb 9.7 L Hct 30.1 L RDW 16.0 H MPV 7.4 L Absolute Neuts (auto) 8.7 H Lymphocytes % 5.2 L Monocytes % 13.3 H Sodium 135 L Anion Gap 6 L BUN 93.4 H Creatinine 1.8 H Random Glucose 108 H Calcium 8.3 L - ....Imaging Chest X-ray: Image Reviewed EKG: Image Reviewed Other: Image Reviewed (telemtery: NSR: earier periods of Atrial flutter) Problem List - Problems (1) AICD (automatic cardioverter/defibrillator) present Assessment/Plan: D/c telemetr Code(s): Z95.810 - PRESENCE OF AUTOMATIC (IMPLANTABLE) CARDIAC DEFIBRILLATOR (2) Acute on chronic systolic and diastolic heart failure, NYHA class 3 Assessment/Plan: Severely reduced LVEF. On carvedilol and furosemide (change the latter to PO). Entresto restarted.\\ Now on amiodarone for Atrial flutter; HR better controlled. Plan to reduce amiodarone dose q 2 weeks until maintenance dose of 100-200 mg daily is reached, then reassess need to continue. D/c telemetry. Code(s): I50.43 - ACUTE ON CHRONIC COMBINED SYSTOLIC AND DIASTOLIC HRT FAIL (3) Anemia Code(s): D64.9 - ANEMIA, UNSPECIFIED (4) Anxiety and depression Code(s): F41.9 - ANXIETY DISORDER, UNSPECIFIED; F32.9 - MAJOR DEPRESSIVE DISORDER, SINGLE EPISODE, UNSPECIFIED (5) Hx of CABG Code(s): Z95.1 - PRESENCE OF AORTOCORONARY BYPASS GRAFT (6) Noncompliance with therapeutic plan Code(s): Z91.11 - PATIENT'S NONCOMPLIANCE WITH DIETARY REGIMEN (7) Obesity Code(s): E66.9 - OBESITY, UNSPECIFIED (8) Smokes cigarettes Code(s): F17.210 - NICOTINE DEPENDENCE, CIGARETTES, UNCOMPLICATED (9) Acute on chronic systolic and diastolic heart failure, NYHA class 1 Code(s): I50.43 - ACUTE ON CHRONIC COMBINED SYSTOLIC AND DIASTOLIC HRT FAIL (10) Diabetes Code(s): E11.9 - TYPE 2 DIABETES MELLITUS WITHOUT COMPLICATIONS Qualifiers: Diabetes mellitus type: type 2 Diabetes mellitus termite treater insulin use: with termite treater use Diabetes mellitus complication status: with unspecified complications (11) Hyperlipidemia Code(s): E78.5 - HYPERLIPIDEMIA, UNSPECIFIED (12) Hypertension Code(s): I10 - ESSENTIAL (PRIMARY) HYPERTENSION (13) Peripheral neuropathy Code(s): G62.9 - POLYNEUROPATHY, UNSPECIFIED Qualifiers: Peripheral neuropathy type: polyneuropathy, unspecified Qualified Code(s): G62.9 - Polyneuropathy, unspecified (14) Sleep apnea Code(s): G47.30 - SLEEP APNEA, UNSPECIFIED (15) Status post THR (total hip replacement) Code(s): Z96.649 - PRESENCE OF UNSPECIFIED ARTIFICIAL HIP JOINT (16) Hypothyroidism Code(s): E03.9 - HYPOTHYROIDISM, UNSPECIFIED (17) PAF (paroxysmal atrial fibrillation) Code(s): I48.0 - PAROXYSMAL ATRIAL FIBRILLATION (18) Acute on chronic renal failure Code(s): N17.9 - ACUTE KIDNEY FAILURE, UNSPECIFIED; N18.9 - CHRONIC KIDNEY DISEASE, UNSPECIFIED
--- NOTE | 2019-05-19 13:05 | PN ---
Physical Exam: SUBJECTIVE: Patient seen and examined. She reports leg and back pain. She denies chest pain, palpitations, cough, or abdominal pain. OBJECTIVE: Vital Signs Period Temp Pulse Resp BP Sys/Santoro Pulse Ox Last 24 Hr 97 F-98.1 F 100-113 16-21 73-91/43-72 100 GENERAL: The patient is awake, alert, and oriented in no distress. HEAD: Normal with no signs of trauma. EYES: PERRL, extraocular movements intact, conjunctiva clear. ENT: Ears normal, nares patent, moist mucous membranes. NECK: Trachea midline, full range of motion, JVD LUNGS: Breath sounds equal, clear to auscultation anteriorly, no wheezes HEART: Tachycardic and regular rhythm, no murmur appreciated, regular S1, S2 ABDOMEN: Soft, right side tenderness to palpation, nondistended, normoactive bowel sounds, no guarding EXTREMITIES: Trace edema b/l lower extremities NEUROLOGICAL: Cranial nerves II through XII grossly intact. Normal speech. PSYCH: Normal mood, normal affect. SKIN: Warm, dry, normal turgor tele: sinus tachycardia Laboratory Results - last 24 hr 05/19/19 05/19/19 05:35 05:35 WBC 10.7 H RBC 3.49 L Hgb 9.7 L Hct 30.1 L MCV 86.2 MCH 27.7 MCHC 32.1 RDW 16.0 H Plt Count 295 MPV 7.4 L Absolute Neuts (auto) 8.7 H Neutrophils % 81.3 Lymphocytes % 5.2 L Monocytes % 13.3 H Eosinophils % 0.0 Basophils % 0.2 Nucleated RBC % 0 Sodium 135 L Potassium 4.3 Chloride 98 Carbon Dioxide 32 Anion Gap 6 L BUN 93.4 H Creatinine 1.8 H Est GFR (CKD-EPI)AfAm 33.64 Est GFR (CKD-EPI)NonAf 29.02 Random Glucose 108 H Calcium 8.3 L Active Medications Generic Name Dose Route Start Last Admin Trade Name Freq PRN Reason Stop Dose Admin Acetaminophen 650 mg 05/14/19 03:00 05/18/19 21:35 Tylenol - PO 650 mg Q6H PRN Administration Fever Or Pain Amiodarone HCl 400 mg 05/17/19 22:00 05/19/19 10:59 Cordarone - PO 400 mg BID [facility] Administration Apixaban 5 mg 05/14/19 10:00 05/19/19 10:59 Eliquis - PO 5 mg BID [facility] Administration Carvedilol 3.125 mg 05/17/19 22:00 05/19/19 10:59 Coreg - PO 3.125 mg BID [facility] Administration Chlorhexidine Gluconate 1 applic 05/14/19 22:00 05/18/19 21:35 Hibiclens For Decolonization - TP 1 applic HS [facility] Administration Clopidogrel Bisulfate 75 mg 05/14/19 10:00 05/19/19 10:59 Plavix - PO 75 mg DAILY [facility] Administration Furosemide 40 mg 05/20/19 10:00 Lasix - PO DAILY [facility] Levothyroxine Sodium 75 mcg 05/14/19 07:00 05/19/19 06:02 Synthroid - PO 75 mcg DAILY@0700 [facility] Administration Miscellaneous 1 each 05/17/19 22:00 05/18/19 21:35 Lidoderm Patch Removal MC 1 each DAILY@2200 [facility] Administration Sacubitril/Valsartan 1 tab 05/17/19 22:00 05/19/19 10:59 Entresto 24 Mg-26 Mg Tablet PO 1 tab BID [facility] Administration ASSESSMENT/PLAN: Ms. Álvaro Prado is a 63y/o female with HFrEF (s/p ICD), a-fib, HTN, HLD, CAD (s /p CABG and PCI), s/p NSTEMI, non-IDDM2, COPD (5L NC), and hypothyroidism who presents from [facility] for LIANNA. #acute on chronic HFrEF -severely reduced EF noted on echo in September 2018 -no net weight loss since admission -Lasix 40mg PO daily -Entresto BID -hold spironolactone -monitor BP -sodium control 2g daily -cards following -CXR tomorrow #LIANNA, likely cardiorenal -Cr 1.8 -continue diuresis, pt likely underdiuresed -monitor -nephro following #a-fib/sinus tachycardia -carvedilol 3.125mg BID -amiodarone 400mg BID for 1 week, then 200mg daily -Eliquis 5mg BID #leukocytosis -downtrending -no fever, urine cx negative -monitor #CAD s/p CABG and PCI -Plavix 75mg #hypothyroidism -Synthroid 75mcg #NIDDM2 -BG normal/borderline during admission -monitor, will add SSI if needed DVT Ppx Eliquis FEN PO fluids monitor Cr sodium-controlled diet (2g daily) dispo telemetry code status DNR/DNI, verified with patient 05/15/19 Visit type - Emergency Visit Emergency Visit: Yes ED Registration Date: 05/14/19 Care time: The patient presented to the Emergency Department on the above date and was hospitalized for further evaluation of their emergent condition. - New Patient This patient is new to me today: No - Critical Care Critical Care patient: No - Discharge Referral Referred to [facility] Med P.C.: No ATTENDING PHYSICIAN STATEMENT I saw and evaluated the patient. I reviewed the resident's note and discussed the case with the resident. I agree with the resident's findings and plan as documented. SUBJECTIVE: OBJECTIVE: ASSESSMENT AND PLAN:
--- NOTE | 2019-05-19 16:41 | PN ---
Progress Note, Physician History of Present Illness: Pt seen and examined at bedside. She is awake and alert. She denies shortness of breath. - Current Medication List Current Medications: Active Medications Acetaminophen (Tylenol -) 650 mg PO Q6H PRN PRN Reason: Fever Or Pain Last Admin: 05/18/19 21:35 Dose: 650 mg Amiodarone HCl (Cordarone -) 400 mg PO BID [facility] Last Admin: 05/19/19 10:59 Dose: 400 mg Apixaban (Eliquis -) 5 mg PO BID [facility] Last Admin: 05/19/19 10:59 Dose: 5 mg Carvedilol (Coreg -) 3.125 mg PO BID [facility] Last Admin: 05/19/19 10:59 Dose: 3.125 mg Chlorhexidine Gluconate (Hibiclens For Decolonization -) 1 applic TP HS [facility] Last Admin: 05/18/19 21:35 Dose: 1 applic Clopidogrel Bisulfate (Plavix -) 75 mg PO DAILY [facility] Last Admin: 05/19/19 10:59 Dose: 75 mg Furosemide (Lasix -) 40 mg PO DAILY [facility] Levothyroxine Sodium (Synthroid -) 75 mcg PO DAILY@0700 [facility] Last Admin: 05/19/19 06:02 Dose: 75 mcg Miscellaneous (Lidoderm Patch Removal) 1 each MC DAILY@2200 [facility] Last Admin: 05/18/19 21:35 Dose: 1 each Sacubitril/Valsartan (Entresto 24 Mg-26 Mg Tablet) 1 tab PO BID [facility] Last Admin: 05/19/19 10:59 Dose: 1 tab - Objective Vital Signs: Vital Signs Temperature 98 F 05/19/19 14:00 Pulse Rate 104 H 05/19/19 14:00 Respiratory Rate 18 05/19/19 14:00 Blood Pressure 77/55 L 05/19/19 16:37 O2 Sat by Pulse Oximetry (%) 100 05/19/19 09:00 Constitutional: Yes: Calm Eyes: Yes: Conjunctiva Clear HENT: Yes: Atraumatic Neck: Yes: Supple Cardiovascular: Yes: S1, S2 Respiratory: Yes: On Nasal O2 Gastrointestinal: Yes: Soft Genitourinary: Yes: WNL Breast(s): Yes: Gynecomastia Edema: Yes Edema: LLE: 2+, RLE: 2+ Neurological: Yes: Oriented Psychiatric: Yes: Oriented Labs: CBC, BMP 05/19/19 05:35 05/19/19 05:35 Problem List - Problems (1) LIANNA (acute kidney injury) Code(s): N17.9 - ACUTE KIDNEY FAILURE, UNSPECIFIED Assessment/Plan Current Medications Generic Name Dose Route Start Last Admin Trade Name Freq PRN Reason Stop Dose Admin Acetaminophen 650 mg 05/14/19 03:00 05/18/19 21:35 Tylenol - PO 650 mg Q6H PRN Administration Fever Or Pain Amiodarone HCl 400 mg 05/17/19 22:00 05/19/19 10:59 Cordarone - PO 400 mg BID [facility] Administration Apixaban 5 mg 05/14/19 10:00 05/19/19 10:59 Eliquis - PO 5 mg BID [facility] Administration Carvedilol 3.125 mg 05/17/19 22:00 05/19/19 10:59 Coreg - PO 3.125 mg BID [facility] Administration Chlorhexidine Gluconate 1 applic 05/14/19 22:00 05/18/19 21:35 Hibiclens For Decolonization - TP 1 applic HS [facility] Administration Clopidogrel Bisulfate 75 mg 05/14/19 10:00 05/19/19 10:59 Plavix - PO 75 mg DAILY [facility] Administration Furosemide 40 mg 05/20/19 10:00 Lasix - PO DAILY [facility] Levothyroxine Sodium 75 mcg 05/14/19 07:00 05/19/19 06:02 Synthroid - PO 75 mcg DAILY@0700 [facility] Administration Miscellaneous 1 each 05/17/19 22:00 05/18/19 21:35 Lidoderm Patch Removal MC 1 each DAILY@2200 [facility] Administration Sacubitril/Valsartan 1 tab 05/17/19 22:00 05/19/19 10:59 Entresto 24 Mg-26 Mg Tablet PO 1 tab BID [facility] Administration Impression 1. LIANNA 2. CHF 3. volume overload 4. HTN 5. HLD 6. DM 7. CAD 8. COPD 9. active smoker 10. anasarca 11. hypotension 12. hx of positive danielle Plan - renal function is worsening - lasix if bp permits - entresto has an arb which can contribute to pole lift operator rising - repeat labs in am - pt is poorly compliant - 2 gram sodium diet
[2019-05-19] MEDS: CHLORHEXIDINE GLUCONATE 4% CLEANSER FOR DECOLONIZATION TP SCH (21:42)
[2019-05-19] MEDS: LIDOCAINE PATCH REMOVAL MC SCH (21:42)
[2019-05-20] MEDS: LEVOTHYROXINE NA 75 MCG TABLET (FP) PO SCH (06:18)
[2019-05-20 06:20] LABS: HEMATOCRIT 30.3 % (32.4-45.2); HEMOGLOBIN 9.6 GM/dL (10.7-15.3); MCH 27.4 pg (25.7-33.7); MCHC 31.8 g/dl (32.0-36.0); MEAN CELL VOLUME 86.3 fl (80-96); MEAN PLT VOLUME 7.4 fl (7.5-11.1); PLATELET COUNT 296 K/MM3 (134-434); RBC 3.52 M/mm3 (3.60-5.2); RDW 16.1 % (11.6-15.6); WHITE BLOOD COUNT 10.8 K/mm3 (4.0-10.0)
[2019-05-20 06:58] LABS: ALBUMIN 1.8 g/dl (3.4-5.0); BILIRUBIN,TOTAL 1.3 mg/dL (0.2-1); BLOOD UREA NITROGEN 96.9 mg/dL (7-18); CALCIUM 8.4 mg/dL (8.5-10.1); CREATININE 2.4 mg/dL (0.55-1.3); POTASSIUM 4.8 mmol/L (3.5-5.1); TOT PROT 5.3 g/dl (6.4-8.2)
[2019-05-20] MEDS: SACUBITRIL/VALSARTAN 24 MG-26 MG TABLET PO SCH (09:28)
[2019-05-20] MEDS: AMIODARONE HCL 200 MG TABLET (FP) PO SCH ×2 (09:28→21:10)
[2019-05-20] MEDS: CARVEDILOL 3.125 MG TABLET (FP) PO SCH (09:28)
[2019-05-20] MEDS: APIXABAN 5 MG TABLET PO SCH ×2 (09:29→21:09)
[2019-05-20] MEDS: CLOPIDOGREL BISULFATE 75 MG TABLET (FP) PO SCH (09:29)
[2019-05-20] MEDS ORDERED: FUROSEMIDE 40 MG TABLET (FP) PO SCH (10:00)
[2019-05-20] MEDS ORDERED: ACETAMINOPHEN 325 MG TABLET (FP) PO ONE (10:00)
[2019-05-20] MEDS ORDERED: DOBUTAMINE HCL 250,000 MCG in SODIUM CHLORIDE 230 ML IV SCH ×2 (15:00→15:04)
[2019-05-20] MEDS ORDERED: DOBUTAMINE 250 MG/D5W - 250,000 MCG/250 ML INFUS.BAG ONE (15:15)
--- NOTE | 2019-05-20 15:15 | PN ---
Progress Note, Physician Chief Complaint: Pt alert; knows the moth, day, year; still shouts at times, wants help with pain in feet, buttocks. Denies chest pain, dyspnea, abdominal discomfort. Wants to "go to my own home", not to [facility]. History of Present Illness: The pt is a 63 yr old black woman with PM history of HFrEF (severely reduced LVEF; s/p ICD), A-fib, sleep apnea, HTN, HLD, CAD s/p CABG and PCI, s/p NSTEMI, renal dysfunction (hx cardiorenal syndrome), HTN, DM, COPD (5L NC), hypothyroidism, obesity, noncompliance to diet and medications, depression, cigarette smoker, who presents from [facility] for evaluation of LIANNA and NH reports they are "out of fluids to give patient". Baseline Cr 0.9, Cr at [facility] today 2.4. Pt reports generalized fatigue and chronic foot pain (admitted recently for similar complaints). Pt reports whole body pain Reports intermittent SOB, no acute change Denies chest pain, current SOB, N/V, dysuria, hematuria, diarrhea, or changes in sensation - Current Medication List Current Medications: Active Medications Acetaminophen (Tylenol -) 650 mg PO Q6H PRN PRN Reason: Fever Or Pain Last Admin: 05/18/19 21:35 Dose: 650 mg Amiodarone HCl (Cordarone -) 400 mg PO BID [facility] Last Admin: 05/20/19 09:28 Dose: 400 mg Apixaban (Eliquis -) 5 mg PO BID [facility] Last Admin: 05/20/19 09:29 Dose: 5 mg Carvedilol (Coreg -) 3.125 mg PO BID [facility] Last Admin: 05/20/19 09:28 Dose: Not Given Chlorhexidine Gluconate (Hibiclens For Decolonization -) 1 applic TP HS [facility] Last Admin: 05/19/19 21:42 Dose: 1 applic Clopidogrel Bisulfate (Plavix -) 75 mg PO DAILY [facility] Last Admin: 05/20/19 09:29 Dose: 75 mg Furosemide (Lasix -) 40 mg PO DAILY [facility] Last Admin: 05/20/19 09:29 Dose: 40 mg Dobutamine HCl 250,000 mcg/ (Sodium Chloride) 250 mls @ 2.68 mls/hr IV TITR [facility] ; Protocol Levothyroxine Sodium (Synthroid -) 75 mcg PO DAILY@0700 [facility] Last Admin: 05/20/19 06:18 Dose: 75 mcg Miscellaneous (Lidoderm Patch Removal) 1 each MC DAILY@2200 [facility] Last Admin: 05/19/19 21:42 Dose: 1 each Sacubitril/Valsartan (Entresto 24 Mg-26 Mg Tablet) 1 tab PO BID [facility] Last Admin: 05/20/19 09:28 Dose: 1 tab - Objective Vital Signs: Vital Signs Temperature 98.4 F 05/20/19 14:18 Pulse Rate 98 H 05/20/19 15:02 Respiratory Rate 17 05/20/19 15:02 Blood Pressure 68/51 L 05/20/19 15:02 O2 Sat by Pulse Oximetry (%) 100 05/20/19 13:43 Constitutional: Yes: Anxious, Obese Eyes: Yes: WNL HENT: Yes: WNL Neck: Yes: WNL Cardiovascular: Yes: Pulse Irregular, Murmur, S1 (varies in intenstiy), S2 ( split). No: JVD Respiratory: Yes: Diminished Gastrointestinal: Yes: Soft, Abdomen, Obese Labs: CBC, BMP 05/20/19 05:35 05/20/19 05:35 Problem List - Problems (1) AICD (automatic cardioverter/defibrillator) present Assessment/Plan: ICD interrogation, if not done within the past 3 months Code(s): Z95.810 - PRESENCE OF AUTOMATIC (IMPLANTABLE) CARDIAC DEFIBRILLATOR (2) Acute on chronic systolic and diastolic heart failure, NYHA class 3 Assessment/Plan: Severely reduced LVEF; severe pulmonary HTN. Medications (metoprolol, Entresto, spironolactone; furosemide) held due to development of profound hypotension. However, clinically, pt remains alert. CXR: enlarged heart, congestive changes Elevated BNP. CKD; LIANNA. IV dobutamine started. F/u BP, HR, BUN/Cr, electrolytes, daily weight Is and Os. Code(s): I50.43 - ACUTE ON CHRONIC COMBINED SYSTOLIC AND DIASTOLIC HRT FAIL (3) Anemia Code(s): D64.9 - ANEMIA, UNSPECIFIED (4) Anxiety and depression Code(s): F41.9 - ANXIETY DISORDER, UNSPECIFIED; F32.9 - MAJOR DEPRESSIVE DISORDER, SINGLE EPISODE, UNSPECIFIED (5) Hx of CABG Code(s): Z95.1 - PRESENCE OF AORTOCORONARY BYPASS GRAFT (6) Noncompliance with therapeutic plan Code(s): Z91.11 - PATIENT'S NONCOMPLIANCE WITH DIETARY REGIMEN (7) Obesity Code(s): E66.9 - OBESITY, UNSPECIFIED (8) Smokes cigarettes Code(s): F17.210 - NICOTINE DEPENDENCE, CIGARETTES, UNCOMPLICATED (9) Diabetes Code(s): E11.9 - TYPE 2 DIABETES MELLITUS WITHOUT COMPLICATIONS Qualifiers: Diabetes mellitus type: type 2 Diabetes mellitus longterm insulin use: with longterm use Diabetes mellitus complication status: with unspecified complications (10) Hyperlipidemia Code(s): E78.5 - HYPERLIPIDEMIA, UNSPECIFIED (11) Hypertension Code(s): I10 - ESSENTIAL (PRIMARY) HYPERTENSION (12) Peripheral neuropathy Code(s): G62.9 - POLYNEUROPATHY, UNSPECIFIED Qualifiers: Peripheral neuropathy type: polyneuropathy, unspecified Qualified Code(s): G62.9 - Polyneuropathy, unspecified (13) Sleep apnea Code(s): G47.30 - SLEEP APNEA, UNSPECIFIED (14) Status post THR (total hip replacement) Code(s): Z96.649 - PRESENCE OF UNSPECIFIED ARTIFICIAL HIP JOINT (15) Hypothyroidism Code(s): E03.9 - HYPOTHYROIDISM, UNSPECIFIED (16) PAF (paroxysmal atrial fibrillation) Code(s): I48.0 - PAROXYSMAL ATRIAL FIBRILLATION (17) Acute on chronic renal failure Code(s): N17.9 - ACUTE KIDNEY FAILURE, UNSPECIFIED; N18.9 - CHRONIC KIDNEY DISEASE, UNSPECIFIED (18) Hypotension Assessment/Plan: Pt remains alert, but BP has fallen to MAP of 40s. Deteriorating renal function. Reported 3 lb weight loss in past 24 hours (?accuracy). Plan: CXR Is and Os Start IV dobutamine; uptitrate slowly to attempt to improve cardiac output; guard against further hypotension. Continue amiodarone. Hold carvedilol and Entresto. Diuretics per sales and management trainee, once BP has improved. Transfer to ICU. Code(s): I95.9 - HYPOTENSION, UNSPECIFIED (19) Severe pulmonary arterial systolic hypertension Code(s): I27.21 - SECONDARY PULMONARY ARTERIAL HYPERTENSION (20) Elevated troponin Assessment/Plan: 0.06 this admission; chronic elevation since 2012. Code(s): R74.8 - ABNORMAL LEVELS OF OTHER SERUM ENZYMES Assessment/Plan CCU time spent: 35 minutes
--- NOTE | 2019-05-20 15:18 | PN ---
Teaching Attending Note Name of Resident: Juany Herrera ATTENDING PHYSICIAN STATEMENT I saw and evaluated the patient. I reviewed the resident's note and discussed the case with the resident. I agree with the resident's findings and plan as documented. SUBJECTIVE: No fever or chills. No MOREAU. No edema. No fever or chills. denies CP. Has pain in her feet. no CP or SOB OBJECTIVE: NAD, cooperative CV: RRR. 2/6 Sm at LLSB , + JVD Lungs: CTAB Ext: pitting edema especially in thighs. Abd: soft, thick edematous skin, NT . A/P 61 year old female, with a significant past medical history of hypertension, hypercholesterolemia, CAD, AR(X2), s/p defibrillator/pacemaker and CABG, CHF, DM II, kidney stones, peripheral neuropathy, recently diagnosed A fib, hypothyroidism, and non compliance who presented with SOB , AMS, and was found to have Acute CHF and hypotension 1- Acute on chronic systolic CHF. 2- Worsening LIANNA due to CHF 3- Cardiogentic shock. 4- A fib with RVR. 5- Leukocytosis. Plan: - Start Dobutamine gtt. Spoke to Dr. Chris and Dr. Shin. - When blood pressure improves, will start lasix gtt - hold Entresto , and coreg - cont Amiodarone - hold spironolactone - cont eliquis - monitor WBC - transfer to ICU - Spoke to KRYSTIAN Buckley Critical Care Total Critical Care Time (in minutes): 30 Critical Care Statement: The care of this patient involved high complexity decision making to prevent further life threatening deterioration of the patient 's condition and/or to evaluate & treat vital organ system(s) failure or risk of failure.
[2019-05-20] MEDS ORDERED: ACETAMINOPHEN 325 MG TABLET (FP) PO PRN (15:25)
[2019-05-20] MEDS ORDERED: ACETAMINOPHEN 1000 MG/100 ML VIAL (NON FORMULARY) IVPB ONE (15:35)
--- NOTE | 2019-05-20 15:36 | PN ---
Physical Exam: SUBJECTIVE: Patient seen and examined. She reports no improvement in breathing. She denies chest pain or palpitations. She reports b/l heel pain. OBJECTIVE: Vital Signs Period Temp Pulse Resp BP Sys/Santoro Pulse Ox Last 24 Hr 97.5 F-98.4 F 98-106 16-22 56-81/39-64 100-100 GENERAL: The patient is awake, alert, and oriented in no distress. HEAD: Normal with no signs of trauma. EYES: PERRL, extraocular movements intact, conjunctiva clear. ENT: Ears normal, nares patent, moist mucous membranes. NECK: Trachea midline, full range of motion, JVD LUNGS: Breath sounds equal, clear to auscultation anteriorly, no wheezes HEART: Tachycardic and regular rhythm, no murmur appreciated, regular S1, S2 ABDOMEN: Soft, generalized tenderness to palpation, nondistended, normoactive bowel sounds, no guarding EXTREMITIES: Trace edema b/l lower extremities, thick skin and dimpling of thighs, no lesions noted on heels NEUROLOGICAL: Cranial nerves II through XII grossly intact. Normal speech. PSYCH: Normal mood, normal affect. SKIN: Warm, dry, normal turgor tele: sinus tachycardia Laboratory Results - last 24 hr 05/19/19 05/20/19 05/20/19 21:28 05:35 05:35 WBC 10.8 H RBC 3.52 L Hgb 9.6 L Hct 30.3 L MCV 86.3 MCH 27.4 MCHC 31.8 L RDW 16.1 H Plt Count 296 MPV 7.4 L Sodium 134 L Potassium 4.8 Chloride 98 Carbon Dioxide 29 Anion Gap 7 L BUN 96.9 H Creatinine 2.4 H Est GFR (CKD-EPI)AfAm 23.76 Est GFR (CKD-EPI)NonAf 20.50 POC Glucometer 90 Random Glucose 76 Calcium 8.4 L Total Bilirubin 1.3 H AST 14 L ALT 11 L Alkaline Phosphatase 152 H Total Protein 5.3 L Albumin 1.8 L 05/20/19 05:44 WBC RBC Hgb Hct MCV MCH MCHC RDW Plt Count MPV Sodium Potassium Chloride Carbon Dioxide Anion Gap BUN Creatinine Est GFR (CKD-EPI)AfAm Est GFR (CKD-EPI)NonAf POC Glucometer 80 Random Glucose Calcium Total Bilirubin AST ALT Alkaline Phosphatase Total Protein Albumin Active Medications Generic Name Dose Route Start Last Admin Trade Name Freq PRN Reason Stop Dose Admin Acetaminophen 650 mg 05/20/19 15:25 Tylenol - PO Q6H PRN Fever Or Pain Amiodarone HCl 400 mg 05/20/19 22:00 Cordarone - PO BID [facility] Apixaban 5 mg 05/20/19 22:00 Eliquis - PO BID [facility] Chlorhexidine Gluconate 1 applic 05/20/19 22:00 Hibiclens For Decolonization - TP HS [facility] Clopidogrel Bisulfate 75 mg 05/21/19 10:00 Plavix - PO DAILY [facility] Furosemide 40 mg 05/21/19 10:00 Lasix - PO DAILY [facility] Gabapentin 100 mg 05/20/19 15:30 Neurontin - PO TID [facility] Dobutamine HCl 250,000 mcg/ 250 mls @ 13.4 mls/hr 05/20/19 15:04 05/20/19 15: 24 Sodium Chloride IV 2.5 mcg/kg/min TITR [facility] 13.4 mls/hr Administration Protocol 2.5 MCG/KG/MIN Levothyroxine Sodium 75 mcg 05/21/19 07:00 Synthroid - PO DAILY@0700 [facility] Mupirocin 1 applic 05/20/19 22:00 Bactroban Ointment (For Decolonization) - NS 05/25/19 21:59 BID [facility] ASSESSMENT/PLAN: Ms. Álvaro Prado is a 63y/o female with HFrEF (s/p ICD), a-fib, HTN, HLD, CAD (s /p CABG and PCI), s/p NSTEMI, non-IDDM2, COPD (5L NC), and hypothyroidism who presents from [facility] [place] for LIANNA. #hypotension -pt on PE is baseline -systolic into 60s today -CXR less prominent central markings compared to 05/17/19 -started dobutamine 2.5mcg/kg/min, will re-evaluate pressure after 2 hours, if systolic less than 80, increase dobutamine to 5mcg/kg/min, if systolic 80 or above, start Lasix 5mg/hr -monitor for worsening tachycardia -hold Entresto -hold carvedilol -transfer to ICU -tele monitor -cards following -pulm following -nephro following #acute on chronic HFrEF -severely reduced EF noted on echo in September 2018 -no net weight loss since admission -Lasix 40mg PO daily as tolerated -hold Entresto -hold spironolactone -sodium control 2g daily #LIANNA, likely cardiorenal -Cr 2.4 -continue diuresis after pressure increased -monitor #a-fib/sinus tachycardia -carvedilol held -amiodarone 400mg BID for 1 week, then reassess -Eliquis 5mg BID #leukocytosis -stablized -no fever, urine cx negative -monitor #CAD s/p CABG and PCI -Plavix 75mg #hypothyroidism -Synthroid 75mcg #NIDDM2 -BG normal/borderline during admission -monitor, will add SSI if needed DVT Ppx Eliquis FEN PO fluids monitor Cr sodium-controlled diet (2g daily) dispo ICU code status DNR/DNI, verified with patient 05/15/19 Visit type - Emergency Visit Emergency Visit: Yes ED Registration Date: 05/14/19 Care time: The patient presented to the Emergency Department on the above date and was hospitalized for further evaluation of their emergent condition. - New Patient This patient is new to me today: No - Critical Care Critical Care patient: Yes Total Critical Care Time (in minutes): 35 Critical Care Statement: The care of this patient involved high complexity decision making to prevent further life threatening deterioration of the patient 's condition and/or to evaluate & treat vital organ system(s) failure or risk of failure. - Discharge Referral Referred to [facility] No ATTENDING PHYSICIAN STATEMENT I saw and evaluated the patient. I reviewed the resident's note and discussed the case with the resident. I agree with the resident's findings and plan as documented. SUBJECTIVE: OBJECTIVE: ASSESSMENT AND PLAN:
--- NOTE | 2019-05-20 15:37 | CONSULT ---
Consult Consult Specialty:: Critical Care Referred by:: Dr Herrera Reason for Consultation:: Hypotension with afib w/RVR - History of Present Illness Chief Complaint: Hypotension with afib and RVR History of Present Illness: Pt is a 63 yo F, with PMHx of severe systolic HFrEF s/p defibrillator/pacemaker , A. Fib, HTN, HLD, CAD, RI(X2) s/p CABG and PCI, s/p NSTEMI, HTN, DM, COPD( home 5L), hypothyroidism, kidney stones, peripheral neuropathy, non compliance, who presented from [facility] with SOB, AMS, after reported elevated creatinine levels, found to have Acute CHF and hypotension with Afib /RVR, now transferred from [facility] to ICU for dobutamine drip. Pt was noted to have MAPS persistently in 40s-50s. Pt had remained tachycardic in afib (on amiodarone), with lowest documented BP 62/39. Pt was yelling about pain in b/l lower extremities when I saw her and was not cooperative for further review of systems. Per primary team and cardiology, pt was to be transferred to ICU and placed on dobutamine drip with slow uptitration. ECHO: 10/06: L ventricle severely dilated, LV systolic function is severely reduced, severe MR, LA is mod dilated, , RA is mod dilated, severe TR, There is a pacemaker in R ventricle. There is severe global hypokinesis of LV. Regional wall motion abnormalities cannot be excluded. 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 Had PEG placed 11/03 after suffering vocal cord damage ( EMS intubation). PEG was subsequently removed. ) Hepatobiliary: Yes: Cirrhosis (cardiac cirrhosis), Cholecystitis (s/p lap choly 05/05) Renal/: Yes: Renal Calculi ...: No Psych: Yes: Depression Musculoskeletal: Yes: Chronic low back pain, Osteoarthritis Endocrine: Yes: Hypothyroidism - Past Surgical History Past Surgical History: Yes: AICD, CABG, Cholecystectomy (05/05), Colonoscopy, Joint Replacement (right THR), Stent (X2) - Alcohol/Substance Use Hx Alcohol Use: Yes History of Substance Use: reports: None - Smoking History Smoking history: Unknown if ever smoked Have you smoked in the past 12 months: No Aproximately how many cigarettes per day: 2 If you are a former smoker, when did you quit?: 3 months ago - Social History Usual Living Arrangement: Alone ADL: Independent 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 History of Recent Travel: No Home Medications - Allergies Allergies/Adverse Reactions: Allergies Allergy/AdvReac Type Severity Reaction Status Date / Time aspirin Allergy Mild Rash Verified 05/13/19 22:31 banana Allergy Hives Verified 05/13/19 22:31 tomato Allergy Verified 05/13/19 22:31 - Home Medications Home Medications: Ambulatory Orders Clopidogrel Bisulfate [Plavix -] 75 mg PO DAILY #30 tablet 08/02/17 Levothyroxine [Synthroid -] 75 mcg PO DAILY@0700 30 Days #30 tablet 08/02/17 Spironolactone 25 mg PO DAILY 12/09/18 Apixaban [Eliquis -] 5 mg PO BID #60 tablet 05/02/19 Furosemide [Lasix] 80 mg PO DAILY 05/14/19 Metoprolol Succinate [Toprol XL -] 100 mg PO DAILY 05/14/19 Sacubitril/Valsartan [Entresto 24 mg-26 mg Tablet] 1 each PO BID 05/14/19 Family Medical History Family History: Unable to Obtain Review of Systems Unable to obtain ROS, reason: Pt uncooperative Physical Exam Vital Signs: Vital Signs Temperature 98.4 F 05/20/19 14:18 Pulse Rate 100 H 05/20/19 15:24 Respiratory Rate 17 05/20/19 15:02 Blood Pressure 72/43 L 05/20/19 15:24 O2 Sat by Pulse Oximetry (%) 100 05/20/19 13:43 Constitutional: Yes: Moderate Distress Eyes: Yes: EOM Intact HENT: Yes: Other (NC oxygen) Cardiovascular: Yes: Tachycardia, Murmur (systolic 3/6 R amnd LSB), S1, S2, S3 Respiratory: Yes: Other (distant, crackles) Gastrointestinal: Yes: Normal Bowel Sounds, Soft, Abdomen, Obese Edema: LLE: 2+, RLE: 2+ Peripheral Pulses WNL: Yes Neurological: Yes: Alert, Oriented. No: Dysarthria, Facial Droop Psychiatric: Yes: Alert, Oriented Labs: CBC, BMP 05/20/19 05:35 05/20/19 05:35 Imaging - Results Chest X-ray: Report Reviewed, Image Reviewed Ultrasound: Report Reviewed EKG: Report Reviewed, Image Reviewed Assessment/Plan Current Medications Acetaminophen (Tylenol -) 650 mg PO Q6H PRN PRN Reason: Fever Or Pain Amiodarone HCl (Cordarone -) 400 mg PO BID [facility] Apixaban (Eliquis -) 5 mg PO BID [facility] Chlorhexidine Gluconate (Hibiclens For Decolonization -) 1 applic TP HS [facility] Clopidogrel Bisulfate (Plavix -) 75 mg PO DAILY [facility] Furosemide (Lasix -) 40 mg PO DAILY [facility] Gabapentin (Neurontin -) 100 mg PO TID [facility] Last Admin: 05/20/19 15:57 Dose: 100 mg Dobutamine HCl 250,000 mcg/ (Sodium Chloride) 250 mls @ 13.4 mls/hr IV TITR [facility] ; Protocol Last Admin: 05/20/19 15:24 Dose: 2.5 mcg/kg/min, 13.4 mls/hr Levothyroxine Sodium (Synthroid -) 75 mcg PO DAILY@0700 [facility] Mupirocin (Bactroban Ointment (For Decolonization) -) 1 applic NS BID [facility] Stop: 05/25/19 21:59 Ambulatory Orders Clopidogrel Bisulfate [Plavix -] 75 mg PO DAILY #30 tablet 08/02/17 Levothyroxine [Synthroid -] 75 mcg PO DAILY@0700 30 Days #30 tablet 08/02/17 Spironolactone 25 mg PO DAILY 12/09/18 Apixaban [Eliquis -] 5 mg PO BID #60 tablet 05/02/19 Furosemide [Lasix] 80 mg PO DAILY 05/14/19 Metoprolol Succinate [Toprol XL -] 100 mg PO DAILY 05/14/19 Sacubitril/Valsartan [Entresto 24 mg-26 mg Tablet] 1 each PO BID 05/14/19 Assessment/Plan: Pt is a 63 yo F, with PMHx of severe systolic HFrEF s/p defibrillator/pacemaker , A. Fib, HTN, HLD, CAD, RI(X2) s/p CABG and PCI, s/p NSTEMI, HTN, DM, COPD( home 5L), hypothyroidism, kidney stones, peripheral neuropathy, non compliance, who presented from [facility] with SOB, AMS, after reported elevated creatinine levels, found to have Acute CHF and hypotension with Afib /RVR, now transferred from tele to ICU for dobutamine drip. Neuro: Awake, alert, yelling intermittently Cardio: #acute on chronic HFrEF #Afib w/RVR #CAD s/p CABG and PCI cont amiodarone currently 400mg bid severely reduced EF noted on echo in September 2018 Coreg on hold Lasix 40mg IV on hold Entresto on hold for LIANNA spironolactone on hold Per primary team-to increase dobutamine gtt to 5mcg/kg/min if SBP <80 If SBP >80 will keep at 2.5mcg/kg/min and add lasix drip at 5mg/hr (will assess at 17.30) cards - Dr Cage CXR will congestive changes Strict Ins and Outs Eliquis 5mg BID Plavix 75mg Pulm Acute hypoxic respiratory failure secondary to CHF Supplemental oxygen to maintain sats >90% Renal: #LIANNA #Hyponatremia, possibly in setting of overload hold Entresto Lasix drip if hypotension improves nephro following Endo: #hypothyroidism #NIDDM2 Pt with peripheral neuropathy Synthroid 75mcg Cont gabapentin 100mg tid Cont tylenol (iv tylenol 1 dose given) Currently diet controlled DM monitor GI Elevated Alk phosphatase Could be in setting of congestive hepatopathy Cont to monitor ID Leukocytosis Unclear etiology Monitor off AB DVT Ppx Eliquis FEN PO fluids monitor Cr sodium-controlled diet (2g daily) dispo ICU for dobutamine drip Visit type - Emergency Visit Emergency Visit: Yes ED Registration Date: 12/25/19 Care time: The patient presented to the Emergency Department on the above date and was hospitalized for further evaluation of their emergent condition. - New Patient This patient is new to me today: Yes Date on this admission: 05/20/19 - Critical Care Critical Care patient: Yes Total Critical Care Time (in minutes): 37 Critical Care Statement: The care of this patient involved high complexity decision making to prevent further life threatening deterioration of the patient 's condition and/or to evaluate & treat vital organ system(s) failure or risk of failure. ATTENDING PHYSICIAN STATEMENT I saw and evaluated the patient. I reviewed the resident's note and discussed the case with the resident. I agree with the resident's findings and plan as documented. SUBJECTIVE: OBJECTIVE: ASSESSMENT AND PLAN:
[2019-05-20] MEDS: GABAPENTIN 100 MG CAPSULE (FP) PO SCH ×2 (15:57→21:08)
--- NOTE | 2019-05-20 16:06 | PN ---
Progress Note, Physician History of Present Illness: Pt seen and examined at bedside. She is awake and alert. She denies shortness of breath. She complains of lower ext edema. - Current Medication List Current Medications: Active Medications Acetaminophen (Tylenol -) 650 mg PO Q6H PRN PRN Reason: Fever Or Pain Amiodarone HCl (Cordarone -) 400 mg PO BID [facility] Apixaban (Eliquis -) 5 mg PO BID [facility] Chlorhexidine Gluconate (Hibiclens For Decolonization -) 1 applic TP HS RINA Clopidogrel Bisulfate (Plavix -) 75 mg PO DAILY RINA Furosemide (Lasix -) 40 mg PO DAILY RINA Gabapentin (Neurontin -) 100 mg PO TID RINA Last Admin: 05/20/19 15:57 Dose: 100 mg Dobutamine HCl 250,000 mcg/ (Sodium Chloride) 250 mls @ 13.4 mls/hr IV TITR RINA ; Protocol Last Admin: 05/20/19 15:24 Dose: 2.5 mcg/kg/min, 13.4 mls/hr Levothyroxine Sodium (Synthroid -) 75 mcg PO DAILY@0700 [facility] Mupirocin (Bactroban Ointment (For Decolonization) -) 1 applic NS BID [facility] Stop: 05/25/19 21:59 - Objective Vital Signs: Vital Signs Temperature 98.4 F 05/20/19 14:18 Pulse Rate 100 H 05/20/19 15:52 Respiratory Rate 16 05/20/19 15:52 Blood Pressure 83/49 L 05/20/19 15:52 O2 Sat by Pulse Oximetry (%) 100 05/20/19 13:43 Constitutional: Yes: Calm Eyes: Yes: Conjunctiva Clear HENT: Yes: Atraumatic Neck: Yes: Supple Cardiovascular: Yes: S1, S2 Respiratory: Yes: On Nasal O2 Gastrointestinal: Yes: Soft Genitourinary: Yes: Incontinence Musculoskeletal: Yes: WNL Edema: Yes Edema: LLE: 2+, RLE: 2+ Neurological: Yes: Oriented Psychiatric: Yes: Oriented Labs: CBC, BMP 05/20/19 05:35 05/20/19 05:35 - ....Imaging Chest X-ray: Report Reviewed Problem List - Problems (1) LIANNA (acute kidney injury) Code(s): N17.9 - ACUTE KIDNEY FAILURE, UNSPECIFIED Assessment/Plan Current Medications Generic Name Dose Route Start Last Admin Trade Name Freq PRN Reason Stop Dose Admin Acetaminophen 650 mg 05/20/19 15:25 Tylenol - PO Q6H PRN Fever Or Pain Amiodarone HCl 400 mg 05/20/19 22:00 Cordarone - PO BID RINA Apixaban 5 mg 05/20/19 22:00 Eliquis - PO BID [facility] Chlorhexidine Gluconate 1 applic 05/20/19 22:00 Hibiclens For Decolonization - TP HS [facility] Clopidogrel Bisulfate 75 mg 05/21/19 10:00 Plavix - PO DAILY RINA Furosemide 40 mg 05/21/19 10:00 Lasix - PO DAILY [facility] Gabapentin 100 mg 05/20/19 15:30 05/20/19 15:57 Neurontin - PO 100 mg TID [facility] Administration Dobutamine HCl 250,000 mcg/ 250 mls @ 13.4 mls/hr 05/20/19 15:04 05/20/19 15: 24 Sodium Chloride IV 2.5 mcg/kg/min TITR RINA 13.4 mls/hr Administration Protocol 2.5 MCG/KG/MIN Levothyroxine Sodium 75 mcg 05/21/19 07:00 Synthroid - PO DAILY@0700 [facility] Mupirocin 1 applic 05/20/19 22:00 Bactroban Ointment (For Decolonization) - NS 05/25/19 21:59 BID RINA Impression 1. LIANNA 2. CHF 3. volume overload 4. HTN 5. HLD 6. DM 7. CAD 8. COPD 9. active smoker 10. anasarca 11. hypotension 12. hx of positive danielle Plan - pt has worsening hypotension - toter is worse as well - entresto on hold - discussed with cardio - transfer to ICU
[2019-05-20] MEDS ORDERED: PT OWN MED DRAWER 7, Y5N ONE (20:53)
[2019-05-20] MEDS: CHLORHEXIDINE GLUCONATE 4% CLEANSER FOR DECOLONIZATION TP SCH (21:09)
[2019-05-20] MEDS: MUPIROCIN 2% TOPICAL OINTMENT FOR DECOLONIZATION NS SCH (21:12)
[2019-05-20] MEDS: DOBUTAMINE HCL 250,000 MCG in SODIUM CHLORIDE 230 ML IV SCH (21:15)
[2019-05-21] MEDS: LEVOTHYROXINE NA 75 MCG TABLET (FP) PO SCH (06:24)
[2019-05-21] MEDS: GABAPENTIN 100 MG CAPSULE (FP) PO SCH ×3 (06:24→21:04)
[2019-05-21 07:02] LABS: BASO % 0.3 % (0-2.0); HEMATOCRIT 32.5 % (32.4-45.2); HEMOGLOBIN 10.3 GM/dL (10.7-15.3); LYMPH % 5.2 % (8-40); MCH 27.4 pg (25.7-33.7); MCHC 31.6 g/dl (32.0-36.0); MEAN CELL VOLUME 86.8 fl (80-96); MEAN PLT VOLUME 7.4 fl (7.5-11.1); MONO % 12.2 % (3.8-10.2); NEUT % 82.3 % (42.8-82.8); PLATELET COUNT 312 K/MM3 (134-434); RBC 3.75 M/mm3 (3.60-5.2); RDW 15.8 % (11.6-15.6); WHITE BLOOD COUNT 11.1 K/mm3 (4.0-10.0)
--- NOTE | 2019-05-21 07:06 | PN ---
Progress Note (short form) - Note Progress Note: Coverage for Dr. Ace Cage Chief Complaint: Events noted, notes reviewed, complaining of persistent low back discomfort, as outlined in prior notes refractory class II-III NYHA classification bi-ventricular failure- on Dobutamine, rhythm/persists appears to be atrial fibrillation/flutter with improved ventricular response/rate control History of Present Illness: Seen and examined in the ICU. Events noted, notes reviewed, complaining of persistent low back discomfort, as outlined in prior notes refractory class II- III NYHA classification bi-ventricular failure- on Dobutamine, rhythm/persists appears to be atrial fibrillation/flutter with improved ventricular response/ rate control Overall poor prognosis considering her advanced class II-III NYHA classification LV/RV failure- may benefit eventually from home inotrope infusion - will require advanced heart failure evaluation - Current Medication List Current Medications Acetaminophen (Tylenol -) 650 mg PO Q6H PRN PRN Reason: Fever Or Pain Amiodarone HCl (Cordarone -) 400 mg PO BID [facility] Last Admin: 05/20/19 21:10 Dose: 400 mg Apixaban (Eliquis -) 5 mg PO BID [facility] Last Admin: 05/20/19 21:09 Dose: 5 mg Chlorhexidine Gluconate (Hibiclens For Decolonization -) 1 applic TP HS [facility] Last Admin: 05/20/19 21:09 Dose: 1 applic Clopidogrel Bisulfate (Plavix -) 75 mg PO DAILY [facility] Furosemide (Lasix -) 40 mg PO DAILY [facility] Gabapentin (Neurontin -) 100 mg PO TID [facility] Last Admin: 05/21/19 06:24 Dose: 100 mg Dobutamine HCl 250,000 mcg/ (Sodium Chloride) 250 mls @ 26.8 mls/hr IV TITR [facility] ; Protocol Last Admin: 05/20/19 21:15 Dose: 5 mcg/kg/min, 26.8 mls/hr Levothyroxine Sodium (Synthroid -) 75 mcg PO DAILY@0700 [facility] Last Admin: 05/21/19 06:24 Dose: 75 mcg Mupirocin (Bactroban Ointment (For Decolonization) -) 1 applic NS BID [facility] Stop: 05/25/19 21:59 Last Admin: 05/20/19 21:12 Dose: 1 applic Review of Systems Constitutional: no symptoms reported Respiratory: denies: Cough or Sputum Production Cardiovascular: as noted above Gastrointestinal: denies Nausea, Vomiting, Diarrhea, Constipation or Abdominal Pain Genitourinary: no symptoms reported Musculoskeletal: as noted above Endocrine: no symptoms reported - Objective Vital Signs: Last Vital Signs Temp Pulse Resp BP Pulse Ox 97.6 F 129 H 15 82/51 L 100 05/17/19 23:00 05/18/19 06:00 05/18/19 06:00 05/18/19 06:00 05/17/19 20:44 Intake & Output 05/15/19 05/16/19 05/17/19 05/18/19 23:59 23:59 23:59 23:59 Intake Total 350 920 340 200 Balance 350 920 340 200 Weight 198 lb 12.8 oz 194 lb 14.218 oz Neck: Supple Negative JVD No Bruit Cardiovascular: S1 S2 Irregularly Irregular grade 3/6 SM apical with no S3 gallop Respiratory: Diminished Breath Sounds at the Bases Gastrointestinal: Soft Benign Normal Bowel Sounds Extremities: Trace-1+ Edema Labs: CBC, BMP 05/21/19 05:25 05/21/19 05:25 Hepatic Panel Total Bilirubin 1.7 mg/dL (0.2-1) H 05/18/19 05:20 AST 19 U/L (15-37) 05/18/19 05:20 ALT 15 U/L (13-61) 05/18/19 05:20 Alkaline Phosphatase 162 U/L (45-117) H 05/18/19 05:20 Albumin 2.1 g/dl (3.4-5.0) L 05/18/19 05:20 CBC, BMP 05/17/19 05:35 05/17/19 05:35 Hepatic Panel Total Bilirubin 1.8 mg/dL (0.2-1) H 05/17/19 05:35 AST 16 U/L (15-37) 05/17/19 05:35 ALT 13 U/L (13-61) 05/17/19 05:35 Alkaline Phosphatase 152 U/L (45-117) H 05/17/19 05:35 Albumin 2.1 g/dl (3.4-5.0) L 05/17/19 05:35 Assessment/Plan ASSESSMENT: 1. Acute on chronic class II-III NYHA classification LV systolic heart failure, refractory initiated on inotropes/Dobutamine- severe MR- ischemic dilated cardiomyopathy post prophylactic ICD, clinically improving 2. Acute on chronic class II-III NYHA classification RV systolic failure, refractory initiated on inotropes/Dobutamine- severe TR 3. CAD post CABG/PCI angina pectoris 4. Persistent atrial fibrillation/atrial flutter on A/C with DOAC's/Eliquis, on Amiodarone therapy with improved heart rate control 5. Hypertensive heart disease, currently hypotensive/asymptomatic 6. DM 7. Hypercholesterolemia 8. Hypothyroidism 9. COPD 10. Acute on chronic kidney disease with pre-renal azotemia 11. Anemia PLAN: 1. Resume Coreg and titrate dosage as tolerated once off of Dobutamine therapy, hemodynamics permitting (acceptable BP systolic of 80 mmHg and above) 2. Resume Entresto and titrate dosage as tolerated once off of Dobutamine therapy, hemodynamics permitting with close monitoring of renal function and electrolytes 3. Continue Amiodarone at 400 mg twice daily for total of 1 week/initiated on and then decrease dosage to 200 mg daily- assist with rate control of persistent atrial fibrillation/atrial flutter 4. Continue Lasix IV with close monitoring of renal function and electrolytes 5. As outlined in prior notes recommend resumption of Aldactone eventually provided renal function remains stable with Entresto therapy re-initiation 6. Continue Eliquis at the above noted dosage 7. Overall poor prognosis considering her advanced heart failure syndrome/may benefit eventually from home inotrope infusion- will require advanced heart failure evaluation Moises Grossman MD
[2019-05-21 07:44] LABS: ALBUMIN 1.8 g/dl (3.4-5.0); BILIRUBIN,TOTAL 1.6 mg/dL (0.2-1); CALCIUM 8.2 mg/dL (8.5-10.1); CREATININE 2.5 mg/dL (0.55-1.3); MAGNESIUM 2.4 mg/dL (1.8-2.4); PHOSPHOROUS 4.8 mg/dL (2.5-4.9); POTASSIUM 4.9 mmol/L (3.5-5.1); TOT PROT 5.6 g/dl (6.4-8.2)
[2019-05-21 07:51] LABS: BLOOD UREA NITROGEN 106.6 mg/dL (7-18)
--- NOTE | 2019-05-21 08:01 | PN ---
Physical Exam: SUBJECTIVE: Patient seen and examined OBJECTIVE: Vital Signs Period Temp Pulse Resp BP Sys/Santoro Pulse Ox Last 24 Hr 97.5 F-98.4 F 98-108 10-22 56-90/39-61 100-100 GENERAL: The patient is awake, alert, and fully oriented, in no acute distress. HEAD: Normal with no signs of trauma. EYES: PERRL, extraocular movements intact, sclera anicteric, conjunctiva clear. No ptosis. ENT: Ears normal, nares patent, oropharynx clear without exudates, moist mucous membranes. NECK: Trachea midline, full range of motion, supple. LUNGS: Breath sounds equal, clear to auscultation bilaterally, no wheezes, no crackles, no accessory muscle use. HEART: Regular rate and rhythm, S1, S2 without murmur, rub or gallop. ABDOMEN: Soft, nontender, nondistended, normoactive bowel sounds, no guarding, no rebound, no hepatosplenomegaly, no masses. EXTREMITIES: 2+ pulses, warm, well-perfused, no edema. NEUROLOGICAL: Cranial nerves II through XII grossly intact. Normal speech, gait not observed. PSYCH: Normal mood, normal affect. SKIN: Warm, dry, normal turgor, no rashes or lesions noted Laboratory Results - last 24 hr 05/21/19 05/21/19 05:25 05:25 WBC 11.1 H RBC 3.75 Hgb 10.3 L Hct 32.5 MCV 86.8 MCH 27.4 MCHC 31.6 L RDW 15.8 H Plt Count 312 MPV 7.4 L Absolute Neuts (auto) 9.1 H Neutrophils % 82.3 Lymphocytes % 5.2 L Monocytes % 12.2 H Eosinophils % 0.0 Basophils % 0.3 Nucleated RBC % 0 Sodium 134 L Potassium 4.9 Chloride 96 L Carbon Dioxide 30 Anion Gap 8 BUN 106.6 H* Creatinine 2.5 H Est GFR (CKD-EPI)AfAm 22.61 Est GFR (CKD-EPI)NonAf 19.51 Random Glucose 77 Calcium 8.2 L Phosphorus 4.8 Magnesium 2.4 Total Bilirubin 1.6 H AST 15 ALT 11 L Alkaline Phosphatase 158 H Total Protein 5.6 L Albumin 1.8 L Active Medications Generic Name Dose Route Start Last Admin Trade Name Freq PRN Reason Stop Dose Admin Acetaminophen 650 mg 05/20/19 15:25 Tylenol - PO Q6H PRN Fever Or Pain Amiodarone HCl 400 mg 05/20/19 22:00 05/20/19 21:10 Cordarone - PO 400 mg BID [facility]INA Administration Apixaban 5 mg 05/20/19 22:00 05/20/19 21:09 Eliquis - PO 5 mg BID [facility]INA Administration Chlorhexidine Gluconate 1 applic 05/20/19 22:00 05/20/19 21:09 Hibiclens For Decolonization - TP 1 applic HS [facility]INA Administration Clopidogrel Bisulfate 75 mg 05/21/19 10:00 Plavix - PO DAILY [facility]INA Furosemide 40 mg 05/21/19 10:00 Lasix - PO DAILY [facility]INA Gabapentin 100 mg 05/20/19 15:30 05/21/19 06:24 Neurontin - PO 100 mg TID [facility]INA Administration Dobutamine HCl 250,000 mcg/ 250 mls @ 26.8 mls/hr 05/20/19 17:22 05/20/19 21: 15 Sodium Chloride IV 5 mcg/kg/min TITR RINA 26.8 mls/hr Administration Protocol 5 MCG/KG/MIN Levothyroxine Sodium 75 mcg 05/21/19 07:00 05/21/19 06:24 Synthroid - PO 75 mcg DAILY@0700 [facility] Administration Mupirocin 1 applic 05/20/19 22:00 05/20/19 21:12 Bactroban Ointment (For Decolonization) - NS 05/25/19 21:59 1 applic BID [facility]INA Administration ASSESSMENT/PLAN: ATTENDING PHYSICIAN STATEMENT I saw and evaluated the patient. I reviewed the resident's note and discussed the case with the resident. I agree with the resident's findings and plan as documented. SUBJECTIVE: OBJECTIVE: ASSESSMENT AND PLAN:
--- NOTE | 2019-05-21 09:40 | PN ---
Teaching Attending Note Name of Resident: Reggie Bedolla ATTENDING PHYSICIAN STATEMENT I saw and evaluated the patient. I reviewed the resident's note and discussed the case with the resident. I agree with the resident's findings and plan as documented. SUBJECTIVE: Patient is c/o having abdominal pain otherwise and no new complains. in ICU. OBJECTIVE: Vital Signs Temperature 98 F 05/21/19 05:00 Pulse Rate 104 H 05/21/19 15:00 Respiratory Rate 20 05/21/19 15:00 Blood Pressure 86/54 L 05/21/19 15:00 O2 Sat by Pulse Oximetry (%) 100 05/21/19 09:00 GENERAL: The patient is awake, alert, and oriented, in no acute distress. HEAD: Normal with no signs of trauma. EYES: PERRL, EOMI, sclera anicteric, conjunctiva clear. ENT: Ears normal, oropharynx clear without exudates, moist mucous membranes. NECK: Trachea midline, full range of motion, supple. LUNGS:decreased Breath sounds bl, no wheezes, no crackles, no accessory muscle use. HEART: Regular rate and rhythm, S1, S2 positive, brennen 3/6 , no rub or gallop. ABDOMEN: Soft, NT, BS+, no guarding, no rebound, no hepatosplenomegaly, no masses appreciated EXTREMITIES: 2+ pulses, warm, well-perfused, positive for anasarca generalized , 2+ edema of lower extremities NEUROLOGICAL: Cranial nerves II through XII grossly intact. Normal speech, gait not observed. SKIN: Warm, dry, normal turgor, no rashes or lesions noted CBCD WBC 11.1 K/mm3 (4.0-10.0) H 05/21/19 05:25 RBC 3.75 M/mm3 (3.60-5.2) 05/21/19 05:25 Hgb 10.3 GM/dL (10.7-15.3) L 05/21/19 05:25 Hct 32.5 % (32.4-45.2) 05/21/19 05:25 MCV 86.8 fl (80-96) 05/21/19 05:25 MCHC 31.6 g/dl (32.0-36.0) L 05/21/19 05:25 RDW 15.8 % (11.6-15.6) H 05/21/19 05:25 Plt Count 312 K/MM3 (134-434) 05/21/19 05:25 MPV 7.4 fl (7.5-11.1) L 05/21/19 05:25 CMP Sodium 134 mmol/L (136-145) L 05/21/19 05:25 Potassium 4.9 mmol/L (3.5-5.1) 05/21/19 05:25 Chloride 96 mmol/L (98-107) L 05/21/19 05:25 Carbon Dioxide 30 mmol/L (21-32) 05/21/19 05:25 Anion Gap 8 MMOL/L (8-16) 05/21/19 05:25 BUN 106.6 mg/dL (7-18) H* 05/21/19 05:25 Creatinine 2.5 mg/dL (0.55-1.3) H 05/21/19 05:25 Random Glucose 77 mg/dL (74-106) 05/21/19 05:25 Calcium 8.2 mg/dL (8.5-10.1) L 05/21/19 05:25 Total Bilirubin 1.6 mg/dL (0.2-1) H 05/21/19 05:25 AST 15 U/L (15-37) 05/21/19 05:25 ALT 11 U/L (13-61) L 05/21/19 05:25 Alkaline Phosphatase 158 U/L (45-117) H 05/21/19 05:25 Total Protein 5.6 g/dl (6.4-8.2) L 05/21/19 05:25 Albumin 1.8 g/dl (3.4-5.0) L 05/21/19 05:25 CARDIAC ENZYMES Troponin I 0.06 ng/ml (0.00-0.05) H 05/14/19 05:45 Microbiology Laboratory Tests 07/09/16 07/10/16 07/10/16 13:00 00:43 06:45 Potassium 2.9 L* BUN 18 D 21 H Creatinine 0.9 0.8 Ammonia 52.96 H B-Natriuretic Peptide 07/11/16 04/19/19 04/20/19 05:35 12:30 05:50 Potassium 3.2 L BUN 30 H D Creatinine 1.4 H D 2.2 H 2.4 H Ammonia B-Natriuretic Peptide 04/22/19 04/23/19 04/24/19 10:00 06:10 06:30 Potassium BUN Creatinine 3.4 H 3.4 H 3.5 H Ammonia B-Natriuretic Peptide 04/25/19 04/26/19 05/13/19 05:25 11:16 23:30 Potassium BUN 102.2 H Creatinine 3.0 H 2.2 H 1.9 H Ammonia B-Natriuretic Peptide 05/13/19 05/14/19 05/15/19 23:30 05:45 08:25 Potassium BUN 103.1 H 95.5 H Creatinine 1.8 H 1.5 H Ammonia B-Natriuretic Peptide 92124.3 H 05/16/19 05/18/19 05/19/19 05:57 05:20 05:35 Potassium BUN 87.6 H 89.0 H 93.4 H Creatinine 1.3 1.4 H 1.8 H Ammonia B-Natriuretic Peptide 05/20/19 05/21/19 05:35 05:25 Potassium BUN 96.9 H 106.6 H* Creatinine 2.4 H 2.5 H Ammonia B-Natriuretic Peptide 05/14/19 03:00 Urine - Urine Lam Urine Culture - Final NO GROWTH OBTAINED ASSESSMENT AND PLAN: Patient is a 61yof, with a PMHx of HTN, HLD, CAD, MO(X2), s/p defibrillator/ pacemaker and CABG, CHF, DM II, kidney stones, peripheral neuropathy, recently diagnosed A fib, hypothyroidism, and non compliance who presented with SOB , AMS , and was found to have Acute CHF and hypotension # Acute on chronic systolic CHF, on Dobutamine gtt. continue as per cardio , monitor BP, lasix gtt as per nephro/cardio # acute over chronic LIANNA due to CHF, GFR is 22 , will adjust the dose of Eliquis 2.5mg bid from 5.0 bid, hold Entresto , and coreg , spironolactone # Cardiogentic shock. # A fib with RVR, cont Amiodarone # Leukocytosis. iCu care
[2019-05-21] MEDS ORDERED: FUROSEMIDE 40 MG TABLET (FP) PO SCH (10:00)
--- NOTE | 2019-05-21 10:09 | PN ---
Teaching Attending Note Name of Resident: Roberta Lozoya ATTENDING PHYSICIAN STATEMENT I saw and evaluated the patient. I reviewed the resident's note and discussed the case with the resident. I agree with the resident's findings and plan as documented. SUBJECTIVE: Patient seen and examined in the ICU. Awake and alert. Remains hypotensive despite Dobutamine 5 mcq for hemodynamic support. Denies CP or SOB. Some dry cough. Seen by Cardiology this AM. Intake & Output 05/18/19 05/19/19 05/20/19 05/21/19 23:59 23:59 23:59 23:59 Intake Total 1515 960 971 300 Balance 1515 960 971 300 Weight 194 lb 14.218 oz 200 lb 1.6 oz 197 lb 201 lb 1 oz Last Vital Signs Temp Pulse Resp BP Pulse Ox 98 F 104 H 20 74/48 L 100 05/21/19 05:00 05/21/19 09:15 05/21/19 09:15 05/21/19 09:15 05/20/19 20:33 Active Medications Acetaminophen (Tylenol -) 650 mg PO Q6H PRN PRN Reason: Fever Or Pain Amiodarone HCl (Cordarone -) 400 mg PO BID [facility] Last Admin: 05/20/19 21:10 Dose: 400 mg Apixaban (Eliquis -) 5 mg PO BID [facility] Last Admin: 05/20/19 21:09 Dose: 5 mg Chlorhexidine Gluconate (Hibiclens For Decolonization -) 1 applic TP HS [facility] Last Admin: 05/20/19 21:09 Dose: 1 applic Clopidogrel Bisulfate (Plavix -) 75 mg PO DAILY [facility] Furosemide (Lasix -) 40 mg PO DAILY [facility] Gabapentin (Neurontin -) 100 mg PO TID [facility] Last Admin: 05/21/19 06:24 Dose: 100 mg Dobutamine HCl 250,000 mcg/ (Sodium Chloride) 250 mls @ 26.8 mls/hr IV TITR [facility] ; Protocol Last Admin: 05/20/19 21:15 Dose: 5 mcg/kg/min, 26.8 mls/hr Levothyroxine Sodium (Synthroid -) 75 mcg PO DAILY@0700 [facility] Last Admin: 05/21/19 06:24 Dose: 75 mcg Mupirocin (Bactroban Ointment (For Decolonization) -) 1 applic NS BID [facility] Stop: 05/25/19 21:59 Last Admin: 05/20/19 21:12 Dose: 1 applic Constitutional: Yes: Awake and alert Eyes: Yes: EOM Intact HENT: Yes: Other (NC oxygen) Cardiovascular: Yes: Tachycardia, Murmur (systolic 3/6 R amnd LSB), S1, S2, S3 Respiratory: Yes: Bibasilar rales Gastrointestinal: Yes: Normal Bowel Sounds, Soft, Abdomen, Obese Edema: LLE: 2+, RLE: 2+ Peripheral Pulses WNL: Yes Neurological: Yes: Alert, Oriented. No: Dysarthria, Facial Droop Psychiatric: Yes: Alert, Oriented Labs: Laboratory Results - last 24 hr 05/21/19 05/21/19 05:25 05:25 WBC 11.1 H RBC 3.75 Hgb 10.3 L Hct 32.5 MCV 86.8 MCH 27.4 MCHC 31.6 L RDW 15.8 H Plt Count 312 MPV 7.4 L Absolute Neuts (auto) 9.1 H Neutrophils % 82.3 Lymphocytes % 5.2 L Monocytes % 12.2 H Eosinophils % 0.0 Basophils % 0.3 Nucleated RBC % 0 Sodium 134 L Potassium 4.9 Chloride 96 L Carbon Dioxide 30 Anion Gap 8 BUN 106.6 H* Creatinine 2.5 H Est GFR (CKD-EPI)AfAm 22.61 Est GFR (CKD-EPI)NonAf 19.51 Random Glucose 77 Calcium 8.2 L Phosphorus 4.8 Magnesium 2.4 Total Bilirubin 1.6 H AST 15 ALT 11 L Alkaline Phosphatase 158 H Total Protein 5.6 L Albumin 1.8 L Assessment/Plan: Acute on chronic Severe LV systolic heart failure Severe MR- Ischemic dilated cardiomyopathy post prophylactic ICD CAD CABG/PCI Persistent atrial fibrillation/atrial flutter DM Hypercholesterolemia Hypothyroidism COPD Acute on chronic kidney disease with pre-renal azotemia Anemia Dobutamine support Supplemental O2 as needed Plavix Strict I & O Daily weights BD TX PRN Amiodarone Hold Lasix and Entresto To discuss further interventions/management with Cardiology Dr Berry
[2019-05-21] MEDS: MUPIROCIN 2% TOPICAL OINTMENT FOR DECOLONIZATION NS SCH ×2 (10:37→23:07)
[2019-05-21] MEDS: APIXABAN 5 MG TABLET PO SCH (10:38)
[2019-05-21] MEDS: CLOPIDOGREL BISULFATE 75 MG TABLET (FP) PO SCH (10:38)
[2019-05-21] MEDS: AMIODARONE HCL 200 MG TABLET (FP) PO SCH ×2 (10:38→21:05)
--- NOTE | 2019-05-21 11:35 | PN ---
Physical Exam: SUBJECTIVE: Patient seen and examined in the morning. Patient was transferred to ICU management due to hypotension, was started on dobutamine drip. No events on cardiac monitoring. Patient complains of pain in lower extremities, and lower back today. Denies chest pain, shortness of breath, abdominal pain. OBJECTIVE: Vital Signs Period Temp Pulse Resp BP Sys/Santoro Pulse Ox Last 24 Hr 98 F-98.4 F 98-108 10-22 56-90/40-61 100-100 GENERAL: The patient is awake, alert, and fully oriented, is yelling out loud about pain. Seems to be in great discomfort. HEAD: Normal with no signs of trauma. EYES: PERRLA, EOMI, sclera anicteric, conjunctiva clear. No ptosis. ENT: Ears normal, nares patent, oropharynx clear without exudates, moist mucous membranes. Nasal Cannula in place (4L) NECK: Trachea midline, full range of motion, supple. LUNGS: Crackles b/l HEART: 3/6 systolic murmur. S1 S2 present. ABDOMEN: Soft, nontender, nondistended, normoactive bowel sounds, EXTREMITIES: 2+ pulses, warm, well-perfused. NEUROLOGICAL: Sensation grossly intact. 4/5 strength in lower extremities. PSYCH: Normal mood, normal affect. SKIN: Warm, dry, normal turgor, no rashes or lesions noted Laboratory Results - last 24 hr 05/21/19 05/21/19 05:25 05:25 WBC 11.1 H RBC 3.75 Hgb 10.3 L Hct 32.5 MCV 86.8 MCH 27.4 MCHC 31.6 L RDW 15.8 H Plt Count 312 MPV 7.4 L Absolute Neuts (auto) 9.1 H Neutrophils % 82.3 Lymphocytes % 5.2 L Monocytes % 12.2 H Eosinophils % 0.0 Basophils % 0.3 Nucleated RBC % 0 Sodium 134 L Potassium 4.9 Chloride 96 L Carbon Dioxide 30 Anion Gap 8 BUN 106.6 H* Creatinine 2.5 H Est GFR (CKD-EPI)AfAm 22.61 Est GFR (CKD-EPI)NonAf 19.51 Random Glucose 77 Calcium 8.2 L Phosphorus 4.8 Magnesium 2.4 Total Bilirubin 1.6 H AST 15 ALT 11 L Alkaline Phosphatase 158 H Total Protein 5.6 L Albumin 1.8 L Active Medications Generic Name Dose Route Start Last Admin Trade Name Freq PRN Reason Stop Dose Admin Acetaminophen 650 mg 05/20/19 15:25 Tylenol - PO Q6H PRN Fever Or Pain Amiodarone HCl 400 mg 05/20/19 22:00 05/21/19 10:38 Cordarone - PO 400 mg BID RINA Administration Apixaban 5 mg 05/20/19 22:00 05/21/19 10:38 Eliquis - PO 5 mg BID RINA Administration Chlorhexidine Gluconate 1 applic 05/20/19 22:00 05/20/19 21:09 Hibiclens For Decolonization - TP 1 applic HS RINA Administration Clopidogrel Bisulfate 75 mg 05/21/19 10:00 05/21/19 10:38 Plavix - PO 75 mg DAILY RINA Administration Furosemide 40 mg 05/21/19 10:00 05/21/19 10:38 Lasix - PO 40 mg DAILY RINA Administration Gabapentin 100 mg 05/20/19 15:30 05/21/19 06:24 Neurontin - PO 100 mg TID RINA Administration Dobutamine HCl 250,000 mcg/ 250 mls @ 26.8 mls/hr 05/20/19 17:22 05/20/19 21: 15 Sodium Chloride IV 5 mcg/kg/min TITR RINA 26.8 mls/hr Administration Protocol 5 MCG/KG/MIN Levothyroxine Sodium 75 mcg 05/21/19 07:00 05/21/19 06:24 Synthroid - PO 75 mcg DAILY@0700 RINA Administration Mupirocin 1 applic 05/20/19 22:00 05/21/19 10:37 Bactroban Ointment (For Decolonization) - NS 05/25/19 21:59 1 applic BID RINA Administration ASSESSMENT/PLAN: 63 F PMH of severe systolic HFrEF s/p defibrillator/pacemaker, A.Fib, HTN, HLD, CAD SC (x2) s/p CABG and PCI s/p NSTEMI, HTN, DM, COPD (5L O2 @ home), hypothyroidism, kidney stones, peripheral neuropathy, non compliance who presents with SOB, AMS and found to have acute CHF and hypotension with Afib/ RVR. Was transferred to ICU for continued hypotension, started on Dobutamine drip. Neuro/Psych: -AOx3, yelling out in pain Cardiovascular Hx of CHF, with Acute on chronic CHF this presentation Hx of Afib with RVR, CAD s/p CABG and PCI -Amiodarone 400 mg BID (started 05/17/19) for 1 week. Then continue with 200 mg BID -Holding Coreg, Lasix, entresto, spironolactone -Dobutamine currently 5 mcg -Lasix 40 mg PO Given -Will add lasix drip at 5 mg/hr if patient consistently has SBP >80 -Not a candidate for LVAD/heart transplant -Eliquis 5 mg BID -Plavix 75 mg -Cardiology consulted appreciate recs Pulm -NC @ 4Lpm currently. -Maintain sats > 90% Renal: Creatinine 2.5 today -Lasix 40 mg PO given today -Lasix drip if hypotension is improved -Nephrology consulted, appreciate recs Endo: Hx of Hypothryoidism, DM2 with peripheral neuropathy -Synthroid -Gabapentin -Tylenol IV and PO. Avoid narcotic agents as per primary team GI: Elevated Alkaline phosphatase Continue to monitor RUQ U/S shows ascites and hepatomegaly ID: Leukocytosis Currently no antibiotics DVT Prophylaxis: Eliquis 5 mg PO BID F: Oral hydration E: Monitor CMP N: Chopped diet, sodium controlled Dispo: Under ICU management for hypotension Visit type - Emergency Visit Emergency Visit: Yes ED Registration Date: 05/14/19 Care time: The patient presented to the Emergency Department on the above date and was hospitalized for further evaluation of their emergent condition. - New Patient This patient is new to me today: Yes Date on this admission: 05/21/19 - Critical Care Critical Care patient: Yes Total Critical Care Time (in minutes): 45 Critical Care Statement: The care of this patient involved high complexity decision making to prevent further life threatening deterioration of the patient 's condition and/or to evaluate & treat vital organ system(s) failure or risk of failure. ATTENDING PHYSICIAN STATEMENT I saw and evaluated the patient. I reviewed the resident's note and discussed the case with the resident. I agree with the resident's findings and plan as documented. SUBJECTIVE: OBJECTIVE: ASSESSMENT AND PLAN:
[2019-05-21] MEDS: DOBUTAMINE HCL 250,000 MCG in SODIUM CHLORIDE 230 ML IV SCH (12:00)
[2019-05-21] MEDS ORDERED: DOBUTAMINE 250 MG/D5W - 250,000 MCG/250 ML INFUS.BAG ONE (12:20)
[2019-05-21 13:21] VITALS: BMI 34.4
--- NOTE | 2019-05-21 15:55 | PN ---
Physical Exam: SUBJECTIVE: Patient seen and examined O/N: cw dobutamine Endorsing pain to BLE, lower back OBJECTIVE: Vital Signs Period Temp Pulse Resp BP Sys/Santoro Pulse Ox Last 24 Hr 98 F 98-108 10-20 71-92/48-66 100-100 GENERAL: The patient is awake, alert, mild distress. HEAD: Normal with no signs of trauma. EYES: PERRL, extraocular movements intact, conjunctiva clear. ENT: Ears normal, nares patent, moist mucous membranes. NECK: Trachea midline, full range of motion. JVD LUNGS: Breath sounds equal, clear to auscultation anteriorly, no wheezes. Mild crackles of b/l lung bases HEART: Tachycardic and regular rhythm. S1, S2 with possible holosystolic murmur ABDOMEN: Soft, nondistended, normoactive bowel sounds, nonTTP [id number], Neg Stone's, no guarding EXTREMITIES: Trace nonpitting edema b/l lower extremities, wrinkled skin NEUROLOGICAL: normal speech PSYCH: Normal mood, normal affect. SKIN: Warm, dry, normal turgor tele: sinus tachycardia Laboratory Results - last 24 hr 05/21/19 05/21/19 05:25 05:25 WBC 11.1 H RBC 3.75 Hgb 10.3 L Hct 32.5 MCV 86.8 MCH 27.4 MCHC 31.6 L RDW 15.8 H Plt Count 312 MPV 7.4 L Absolute Neuts (auto) 9.1 H Neutrophils % 82.3 Lymphocytes % 5.2 L Monocytes % 12.2 H Eosinophils % 0.0 Basophils % 0.3 Nucleated RBC % 0 Sodium 134 L Potassium 4.9 Chloride 96 L Carbon Dioxide 30 Anion Gap 8 BUN 106.6 H* Creatinine 2.5 H Est GFR (CKD-EPI)AfAm 22.61 Est GFR (CKD-EPI)NonAf 19.51 Random Glucose 77 Calcium 8.2 L Phosphorus 4.8 Magnesium 2.4 Total Bilirubin 1.6 H AST 15 ALT 11 L Alkaline Phosphatase 158 H Total Protein 5.6 L Albumin 1.8 L Active Medications Generic Name Dose Route Start Last Admin Trade Name Freq PRN Reason Stop Dose Admin Acetaminophen 650 mg 05/20/19 15:25 Tylenol - PO Q6H PRN Fever Or Pain Amiodarone HCl 400 mg 05/20/19 22:00 05/21/19 10:38 Cordarone - PO 400 mg BID RINA Administration Apixaban 5 mg 05/20/19 22:00 05/21/19 10:38 Eliquis - PO 5 mg BID RINA Administration Chlorhexidine Gluconate 1 applic 05/20/19 22:00 05/20/19 21:09 Hibiclens For Decolonization - TP 1 applic HS RINA Administration Clopidogrel Bisulfate 75 mg 05/21/19 10:00 05/21/19 10:38 Plavix - PO 75 mg DAILY RINA Administration Furosemide 40 mg 05/21/19 10:00 05/21/19 10:38 Lasix - PO 40 mg DAILY RINA Administration Gabapentin 100 mg 05/20/19 15:30 05/21/19 06:24 Neurontin - PO 100 mg TID RINA Administration Dobutamine HCl 250,000 mcg/ 250 mls @ 26.8 mls/hr 05/20/19 17:22 05/20/19 21: 15 Sodium Chloride IV 5 mcg/kg/min TITR RINA 26.8 mls/hr Administration Protocol 5 MCG/KG/MIN Levothyroxine Sodium 75 mcg 05/21/19 07:00 05/21/19 06:24 Synthroid - PO 75 mcg DAILY@0700 RINA Administration Mupirocin 1 applic 05/20/19 22:00 05/21/19 10:37 Bactroban Ointment (For Decolonization) - NS 05/25/19 21:59 1 applic BID RINA Administration ASSESSMENT/PLAN: 63y/o female with HFrEF (s/p ICD), a-fib, HTN, HLD, CAD (s/p CABG and PCI), s/p NSTEMI, non-IDDM2, COPD (5L NC), and hypothyroidism who presents from [facility] for LIANNA. #acute on chronic HFrEF #persistent hypotension --likely 2/2 sever HFrEF > CXR(05/17/19): cardiolmegaly, prominent patti w/ congestive changes, AICD, dense left base(fluid vs atelectasis vs infiltrate) > severely reduced EF noted on echo in September 2018 - keep SBP> 80, as long pt is staying in bed and not syncopizing -dobutamine 2.5mcg/kg/min, if systolic less than 80, increase dobutamine to 5mcg /kg/min, if systolic 80 or above, start Lasix 5mg/hr -weight down by 1.1kg since admission -Toprol 12.5mg daily --> Carvedilol 3.125mg QD -Lasix 40mg IV daily(to be held if SBP <80) -hold Entresto for LIANNA --> restarted on 05/17/19 -hold spironolactone -cardiology(Chauncey) consult: --if off dobutamine resume Coreg + Entresto, hemodynamics permitting ( acceptable BP systolic of 80 mmHg and above) --cw Amiodarone to assist with rate control of persistent atrial fibrillation /atrial flutter --Amdioarone 400mg BID [id number], then 200mg QD --Continue Lasix IV with close monitoring of renal function and electrolytes --resumption of Aldactone eventually provided renal function remains stable with Entresto therapy reinitiation --Overall poor prognosis considering her advanced heart failure syndrome #sinus tachycardia -monitor -carvedilol(held) -amiodarone(400mg BID for 1 week, then reassess) #LIANNA --likely cardiorenal --improved then worsened -Cr 2.4-->1.5 ... 2.4-->2.5 -can continue Lasix 40mg PO QD -monitor -nephro following #low-grade fever --resolved -urine cx negative -CXR neg for acute changes -venous duplex to r/o DVT --pending #a-fib vs Aflutter -Toprol 12.5mg daily --> changed to coreg -->HELD -Eliquis 5mg BID #hyperbilirubinemia > Tbil: 1.5 ... 1.8 ... 1.6 > US RUQ(05/17/19): enlarged liver, "contracted GB", ascites - monitor # elevated alk phos --unlikely biliary path(s/p lap naomi) - elevated but not trending up or down -monitor #CAD s/p CABG and PCI -Plavix 75mg #hypothyroidism -Synthroid 75mcg #NIDDM2 -BG normal/borderline during admission -monitor, will add SSI if needed DVT Ppx Eliquis FEN monitor Cr, tbili, alk phos sodium-controlled diet (2g daily) dispo telemetry code status DNR/DNI, verified with patient 05/15/19 Visit type - Emergency Visit Emergency Visit: No - New Patient This patient is new to me today: No - Critical Care Critical Care patient: Yes Total Critical Care Time (in minutes): 40 Critical Care Statement: The care of this patient involved high complexity decision making to prevent further life threatening deterioration of the patient 's condition and/or to evaluate & treat vital organ system(s) failure or risk of failure. ATTENDING PHYSICIAN STATEMENT I saw and evaluated the patient. I reviewed the resident's note and discussed the case with the resident. I agree with the resident's findings and plan as documented. SUBJECTIVE: OBJECTIVE: ASSESSMENT AND PLAN:
[2019-05-21] MEDS ORDERED: APIXABAN 2.5 MG TABLET PO SCH (16:01)
--- NOTE | 2019-05-21 17:32 | EKG ---
Test Reason : Blood Pressure : / mmHG Vent. Rate : 107 BPM Atrial Rate : 107 BPM P-R Int : 160 ms QRS Dur : 132 ms QT Int : 376 ms P-R-T Axes : 000 117 169 degrees QTc Int : 501 ms UNCERTAIN RHYTHM RIGHT AXIS DEVIATION NON-SPECIFIC INTRA-VENTRICULAR CONDUCTION BLOCK ABNORMAL ECG WHEN COMPARED WITH ECG OF 14-MAY-2019 02:38, RHYTHM ABOVE CLINICAL CORRELATION IS RECOMMENDED Confirmed by ANGUS CHAMBERS, ALE ([id number]) on 05/21/2019 5:32:30 PM Referred By: Elpidio TYSON Confirmed By:ALE GRECO MD
[2019-05-21 18:08] LABS: MAGNESIUM 2.2 mg/dL (1.8-2.4)
--- NOTE | 2019-05-21 19:03 | PN ---
Progress Note, Physician History of Present Illness: Pt seen and examined at bedside. She is drowsy. She is now in the ICU and on dobutamine. - Current Medication List Current Medications: Active Medications Acetaminophen (Tylenol -) 650 mg PO Q6H PRN PRN Reason: Fever Or Pain Amiodarone HCl (Cordarone -) 400 mg PO BID [facility] Last Admin: 05/21/19 10:38 Dose: 400 mg Apixaban (Eliquis -) 2.5 mg PO BID [facility] Chlorhexidine Gluconate (Hibiclens For Decolonization -) 1 applic TP HS [facility] Last Admin: 05/20/19 21:09 Dose: 1 applic Clopidogrel Bisulfate (Plavix -) 75 mg PO DAILY [facility] Last Admin: 05/21/19 10:38 Dose: 75 mg Furosemide (Lasix -) 40 mg PO DAILY [facility] Last Admin: 05/21/19 10:38 Dose: 40 mg Gabapentin (Neurontin -) 100 mg PO TID [facility] Last Admin: 05/21/19 14:55 Dose: 100 mg Dobutamine HCl 250,000 mcg/ (Sodium Chloride) 250 mls @ 26.8 mls/hr IV TITR [facility] ; Protocol Last Admin: 05/20/19 21:15 Dose: 5 mcg/kg/min, 26.8 mls/hr Levothyroxine Sodium (Synthroid -) 75 mcg PO DAILY@0700 [facility] Last Admin: 05/21/19 06:24 Dose: 75 mcg Mupirocin (Bactroban Ointment (For Decolonization) -) 1 applic NS BID [facility] Stop: 05/25/19 21:59 Last Admin: 05/21/19 10:37 Dose: 1 applic - Objective Vital Signs: Vital Signs Temperature 97.8 F 05/21/19 18:18 Pulse Rate 104 H 05/21/19 18:18 Respiratory Rate 19 05/21/19 18:18 Blood Pressure 84/53 L 05/21/19 18:18 O2 Sat by Pulse Oximetry (%) 100 05/21/19 09:00 Constitutional: Yes: Calm Eyes: Yes: Conjunctiva Clear HENT: Yes: Atraumatic Neck: Yes: Supple Cardiovascular: Yes: S1, S2 Respiratory: Yes: On Nasal O2 Gastrointestinal: Yes: Soft Genitourinary: Yes: Incontinence Musculoskeletal: Yes: Muscle Weakness Edema: Yes Edema: LLE: 2+, RLE: 2+ Neurological: Yes: Oriented Labs: CBC, BMP 05/21/19 05:25 05/21/19 05:25 Problem List - Problems (1) LIANNA (acute kidney injury) Code(s): N17.9 - ACUTE KIDNEY FAILURE, UNSPECIFIED Assessment/Plan Current Medications Generic Name Dose Route Start Last Admin Trade Name Freq PRN Reason Stop Dose Admin Acetaminophen 650 mg 05/20/19 15:25 Tylenol - PO Q6H PRN Fever Or Pain Amiodarone HCl 400 mg 05/20/19 22:00 05/21/19 10:38 Cordarone - PO 400 mg BID RINA Administration Apixaban 2.5 mg 05/21/19 16:01 Eliquis - PO BID RINA Chlorhexidine Gluconate 1 applic 05/20/19 22:00 05/20/19 21:09 Hibiclens For Decolonization - TP 1 applic HS RINA Administration Clopidogrel Bisulfate 75 mg 05/21/19 10:00 05/21/19 10:38 Plavix - PO 75 mg DAILY RINA Administration Furosemide 40 mg 05/21/19 10:00 05/21/19 10:38 Lasix - PO 40 mg DAILY RINA Administration Gabapentin 100 mg 05/20/19 15:30 05/21/19 14:55 Neurontin - PO 100 mg TID RINA Administration Dobutamine HCl 250,000 mcg/ 250 mls @ 26.8 mls/hr 05/20/19 17:22 05/20/19 21: 15 Sodium Chloride IV 5 mcg/kg/min TITR RINA 26.8 mls/hr Administration Protocol 5 MCG/KG/MIN Levothyroxine Sodium 75 mcg 05/21/19 07:00 05/21/19 06:24 Synthroid - PO 75 mcg DAILY@0700 RINA Administration Mupirocin 1 applic 05/20/19 22:00 05/21/19 10:37 Bactroban Ointment (For Decolonization) - NS 05/25/19 21:59 1 applic BID RINA Administration Impression 1. LIANNA 2. CHF 3. volume overload 4. HTN 5. HLD 6. DM 7. CAD 8. COPD 9. active smoker 10. anasarca 11. hypotension 12. hx of positive danielle Plan - renal function is worsening - concern for atn from prolonged hypotension - repeat labs in am - cont current management - ICU care - hold vandanao
[2019-05-21] MEDS: DOCUSATE SODIUM 100 MG CAPSULE (FP) PO SCH (21:04)
[2019-05-21] MEDS: PANTOPRAZOLE 40 MG TABLET (FP) PO SCH (21:04)
[2019-05-21] MEDS: CHLORHEXIDINE GLUCONATE 4% CLEANSER FOR DECOLONIZATION TP SCH (21:05)
[2019-05-22 06:02] LABS: BASO % 0.3 % (0-2.0); HEMATOCRIT 31.4 % (32.4-45.2); HEMOGLOBIN 10.1 GM/dL (10.7-15.3); LYMPH % 5.5 % (8-40); MCH 27.4 pg (25.7-33.7); MCHC 32.2 g/dl (32.0-36.0); MEAN CELL VOLUME 85.2 fl (80-96); MEAN PLT VOLUME 7.3 fl (7.5-11.1); NEUT % 83.2 % (42.8-82.8); PLATELET COUNT 311 K/MM3 (134-434); RBC 3.69 M/mm3 (3.60-5.2); RDW 15.7 % (11.6-15.6); WHITE BLOOD COUNT 9.6 K/mm3 (4.0-10.0)
[2019-05-22] MEDS: LEVOTHYROXINE NA 75 MCG TABLET (FP) PO SCH (06:27)
[2019-05-22] MEDS: GABAPENTIN 100 MG CAPSULE (FP) PO SCH ×3 (06:27→21:09)
[2019-05-22 06:49] LABS: ALBUMIN 1.7 g/dl (3.4-5.0); BILIRUBIN,TOTAL 1.1 mg/dL (0.2-1); BLOOD UREA NITROGEN 94.5 mg/dL (7-18); CALCIUM 7.9 mg/dL (8.5-10.1); CREATININE 1.9 mg/dL (0.55-1.3); MAGNESIUM 1.9 mg/dL (1.8-2.4); POTASSIUM 4.3 mmol/L (3.5-5.1); TOT PROT 5.1 g/dl (6.4-8.2)
[2019-05-22] MEDS ORDERED: PT OWN MED DRAWER 7, Y5N ONE (08:29)
[2019-05-22] MEDS ORDERED: DOBUTAMINE 250 MG/D5W - 250,000 MCG/250 ML INFUS.BAG ONE (08:30)
[2019-05-22] MEDS: ACETAMINOPHEN 650 MG/20.3 ML ORAL SOLUTION (CUPS) PO PRN ×2 (08:31→08:44)
[2019-05-22] MEDS: DOBUTAMINE HCL 250,000 MCG in SODIUM CHLORIDE 230 ML IV SCH ×3 (08:33→21:17)
[2019-05-22] MEDS ORDERED: FUROSEMIDE INJECTION 100 MG in DEXTROSE 5%-WATER - 40 ML IVPB SCH ×2 (10:45→20:14)
[2019-05-22] MEDS: CLOPIDOGREL BISULFATE 75 MG TABLET (FP) PO SCH (11:00)
[2019-05-22] MEDS: APIXABAN 5 MG TABLET PO SCH ×2 (11:00→21:09)
[2019-05-22] MEDS: DOCUSATE SODIUM 100 MG CAPSULE (FP) PO SCH (11:00)
[2019-05-22] MEDS: PANTOPRAZOLE 40 MG TABLET (FP) PO SCH (11:00)
[2019-05-22] MEDS: AMIODARONE HCL 200 MG TABLET (FP) PO SCH ×2 (11:00→21:10)
[2019-05-22] MEDS: MUPIROCIN 2% TOPICAL OINTMENT FOR DECOLONIZATION NS SCH ×2 (11:01→21:15)
--- NOTE | 2019-05-22 12:04 | PN ---
Physical Exam: SUBJECTIVE: Patient seen and examined. She reports breathing is the same. She denies chest pain or palpitations. She reports b/l heel pain. OBJECTIVE: Vital Signs Period Temp Pulse Resp BP Sys/Santoro Pulse Ox Last 24 Hr 97.4 F-98 F 101-108 13-23 76-102/51-76 100-100 GENERAL: The patient is awake, alert, and oriented in no distress. HEAD: Normal with no signs of trauma. EYES: PERRL, extraocular movements intact, conjunctiva clear. ENT: Ears normal, nares patent, moist mucous membranes. NECK: Trachea midline, full range of motion, JVD LUNGS: Breath sounds equal, clear to auscultation anteriorly, no wheezes HEART: Tachycardic and regular rhythm, no murmur appreciated, regular S1, S2 ABDOMEN: Soft, generalized tenderness to palpation, nondistended, normoactive bowel sounds, no guarding EXTREMITIES: +1 edema b/l lower extremities, heels tender to palpation, left LE cool to touch, gross movement intact b/l NEUROLOGICAL: Cranial nerves II through XII grossly intact. Normal speech. PSYCH: Normal mood, normal affect. SKIN: Warm, dry, normal turgor tele: sinus tachycardia Laboratory Results - last 24 hr 05/20/19 05/22/19 05/22/19 05:35 05:16 05:16 WBC 9.6 RBC 3.69 Hgb 10.1 L Hct 31.4 L MCV 85.2 MCH 27.4 MCHC 32.2 RDW 15.7 H Plt Count 311 MPV 7.3 L Absolute Neuts (auto) 8.0 Neutrophils % 83.2 H Lymphocytes % 5.5 L Monocytes % 11.0 H Eosinophils % 0.0 Basophils % 0.3 Nucleated RBC % 0 Sodium 134 L 136 Potassium 4.8 4.3 Chloride 98 98 Carbon Dioxide 29 29 Anion Gap 7 L 8 BUN 96.9 H 94.5 H Creatinine 2.4 H 1.9 H Est GFR (CKD-EPI)AfAm 23.76 31.51 Est GFR (CKD-EPI)NonAf 20.50 27.19 Random Glucose 76 81 Calcium 8.4 L 7.9 L Phosphorus 4.0 Magnesium 2.2 1.9 Total Bilirubin 1.3 H 1.1 H AST 14 L 12 L ALT 11 L 11 L Alkaline Phosphatase 152 H 145 H Total Protein 5.3 L 5.1 L Albumin 1.8 L 1.7 L Active Medications Generic Name Dose Route Start Last Admin Trade Name Freq PRN Reason Stop Dose Admin Acetaminophen 650 mg 05/22/19 08:13 05/22/19 08:44 Tylenol Oral Solution - PO 650 mg Q4H PRN Administration PAIN LEVEL 6-10 Amiodarone HCl 400 mg 05/20/19 22:00 05/22/19 11:00 Cordarone - PO 400 mg BID RINA Administration Apixaban 5 mg 05/22/19 07:59 05/22/19 11:00 Eliquis - PO 5 mg BID RINA Administration Chlorhexidine Gluconate 1 applic 05/20/19 22:00 05/21/19 21:05 Hibiclens For Decolonization - TP 1 applic HS RINA Administration Clopidogrel Bisulfate 75 mg 05/21/19 10:00 05/22/19 11:00 Plavix - PO 75 mg DAILY RINA Administration Docusate Sodium 100 mg 05/21/19 20:30 05/22/19 11:00 Colace - PO 100 mg DAILY RINA Administration Gabapentin 200 mg 05/22/19 10:32 Neurontin - PO TID RINA Furosemide 100 mg/ Dextrose 50 mls @ 2.5 mls/hr 05/22/19 10:45 IVPB TITR RINA Protocol 5 MG/HR Dobutamine HCl 250,000 mcg/ 250 mls @ 13.4 mls/hr 05/22/19 11:52 Sodium Chloride IV TITR RINA Protocol 2.5 MCG/KG/MIN Levothyroxine Sodium 75 mcg 05/21/19 07:00 05/22/19 06:27 Synthroid - PO 75 mcg DAILY@0700 RINA Administration Mupirocin 1 applic 05/20/19 22:00 05/22/19 11:01 Bactroban Ointment (For Decolonization) - NS 05/25/19 21:59 1 applic BID RINA Administration Pantoprazole Sodium 40 mg 05/21/19 20:30 05/22/19 11:00 Protonix - PO 40 mg DAILY RINA Administration ASSESSMENT/PLAN: Ms. Álvaro Prado is a 63y/o female with HFrEF (s/p ICD), a-fib, HTN, HLD, CAD (s /p CABG and PCI), s/p NSTEMI, non-IDDM2, COPD (5L NC), and hypothyroidism who presents from [facility] for LIANNA. #hypotension -systolic into 80s today -dobutamine 2.5mcg/kg/min -monitor for worsening tachycardia -hold Entresto -hold carvedilol -ICU monitoring -cards following -pulm following -nephro following #acute on chronic HFrEF -severely reduced EF noted on echo in September 2018 -no net weight loss since admission -Lasix drip trial -hold Entresto -hold spironolactone -sodium control 2g daily #LIANNA, likely cardiorenal -Cr 2.5-->1.9 -continue diuresis when pressure is good -monitor #b/l heel pain -chronic -gabapentin increased to 200mg TID #a-fib/sinus tachycardia -carvedilol held -amiodarone 400mg BID for 1 week, then reassess -Eliquis 5mg BID #CAD s/p CABG and PCI -Plavix 75mg #hypothyroidism -Synthroid 75mcg #NIDDM2 -BG normal/borderline during admission -monitor, will add SSI if needed #leukocytosis, resolved -no fever, urine cx negative -monitor DVT Ppx Eliquis FEN PO fluids monitor Cr sodium-controlled diet (2g daily) dispo ICU code status DNR/DNI, verified with patient 05/15/19 Visit type - Emergency Visit Emergency Visit: Yes ED Registration Date: 05/14/19 Care time: The patient presented to the Emergency Department on the above date and was hospitalized for further evaluation of their emergent condition. - New Patient This patient is new to me today: No - Critical Care Critical Care patient: Yes Total Critical Care Time (in minutes): 35 Critical Care Statement: The care of this patient involved high complexity decision making to prevent further life threatening deterioration of the patient 's condition and/or to evaluate & treat vital organ system(s) failure or risk of failure. - Discharge Referral Referred to [facility] No ATTENDING PHYSICIAN STATEMENT I saw and evaluated the patient. I reviewed the resident's note and discussed the case with the resident. I agree with the resident's findings and plan as documented. SUBJECTIVE: OBJECTIVE: ASSESSMENT AND PLAN:
--- NOTE | 2019-05-22 13:14 | PN ---
Physical Exam: SUBJECTIVE: Patient seen and examined Pt. feeling better today compared to when initially admitted complaining of bilateral leg pain and neck pain. OBJECTIVE: Vital Signs Period Temp Pulse Resp BP Sys/Santoro Pulse Ox Last 24 Hr 97.4 F-98 F 101-108 13-23 76-102/51-76 100-100 GENERAL: The patient is awake, alert, and fully oriented, HEAD: Normal with no signs of trauma. EYES: PERRL, extraocular movements intact, sclera anicteric, conjunctiva clear. No ptosis. ENT: Ears normal, nares patent, oropharynx clear without exudates, moist mucous membranes. NECK: Trachea midline, full range of motion, supple. LUNGS: Breath sounds equal, clear to auscultation bilaterally, HEART: Regular rate and rhythm, S1, S2 with systolic murmur ABDOMEN: Soft, mildly distended, normoactive bowel sounds, EXTREMITIES: 2+ pulses, warm, well-perfused, trace edema. NEUROLOGICAL: Cranial nerves II through XII grossly intact. Normal speech PSYCH: Normal mood, normal affect. SKIN: Warm, dry, normal turgor, no rashes or lesions noted Laboratory Results - last 24 hr 05/20/19 05/22/19 05/22/19 05:35 05:16 05:16 WBC 9.6 RBC 3.69 Hgb 10.1 L Hct 31.4 L MCV 85.2 MCH 27.4 MCHC 32.2 RDW 15.7 H Plt Count 311 MPV 7.3 L Absolute Neuts (auto) 8.0 Neutrophils % 83.2 H Lymphocytes % 5.5 L Monocytes % 11.0 H Eosinophils % 0.0 Basophils % 0.3 Nucleated RBC % 0 Sodium 134 L 136 Potassium 4.8 4.3 Chloride 98 98 Carbon Dioxide 29 29 Anion Gap 7 L 8 BUN 96.9 H 94.5 H Creatinine 2.4 H 1.9 H Est GFR (CKD-EPI)AfAm 23.76 31.51 Est GFR (CKD-EPI)NonAf 20.50 27.19 Random Glucose 76 81 Calcium 8.4 L 7.9 L Phosphorus 4.0 Magnesium 2.2 1.9 Total Bilirubin 1.3 H 1.1 H AST 14 L 12 L ALT 11 L 11 L Alkaline Phosphatase 152 H 145 H Total Protein 5.3 L 5.1 L Albumin 1.8 L 1.7 L Active Medications Generic Name Dose Route Start Last Admin Trade Name Freq PRN Reason Stop Dose Admin Acetaminophen 650 mg 05/22/19 08:13 05/22/19 08:44 Tylenol Oral Solution - PO 650 mg Q4H PRN Administration PAIN LEVEL 6-10 Amiodarone HCl 400 mg 05/20/19 22:00 05/22/19 11:00 Cordarone - PO 400 mg BID RINA Administration Apixaban 5 mg 05/22/19 07:59 05/22/19 11:00 Eliquis - PO 5 mg BID RINA Administration Chlorhexidine Gluconate 1 applic 05/20/19 22:00 05/21/19 21:05 Hibiclens For Decolonization - TP 1 applic HS RINA Administration Clopidogrel Bisulfate 75 mg 05/21/19 10:00 05/22/19 11:00 Plavix - PO 75 mg DAILY RINA Administration Docusate Sodium 100 mg 05/21/19 20:30 05/22/19 11:00 Colace - PO 100 mg DAILY RINA Administration Gabapentin 200 mg 05/22/19 10:32 Neurontin - PO TID RINA Furosemide 100 mg/ Dextrose 50 mls @ 2.5 mls/hr 05/22/19 10:45 IVPB TITR RINA Protocol 5 MG/HR Dobutamine HCl 250,000 mcg/ 250 mls @ 13.4 mls/hr 05/22/19 11:52 05/22/19 12: 20 Sodium Chloride IV 2.5 mcg/kg/min TITR RINA 13.4 mls/hr Administration Protocol 2.5 MCG/KG/MIN Levothyroxine Sodium 75 mcg 05/21/19 07:00 05/22/19 06:27 Synthroid - PO 75 mcg DAILY@0700 RINA Administration Mupirocin 1 applic 05/20/19 22:00 05/22/19 11:01 Bactroban Ointment (For Decolonization) - NS 05/25/19 21:59 1 applic BID RINA Administration Pantoprazole Sodium 40 mg 05/21/19 20:30 05/22/19 11:00 Protonix - PO 40 mg DAILY RINA Administration ASSESSMENT/PLAN: Ms. Álvaro Prado is a 63y/o female with HFrEF (s/p ICD), a-fib, HTN, HLD, CAD (s /p CABG and PCI), s/p NSTEMI, non-IDDM2, COPD (5L NC), and hypothyroidism who presents from [facility] for LIANNA. Neuro alert and oriented CV #hypotension -pt appears improved on exam -dobutamine halved from 5mcg to 2.5mcg/kg/min -hold Entresto, carvedilol and spironolactone #a-fib/sinus tachycardia -carvedilol held -amiodarone 400mg BID for 1 week, then reassess( day 6) -Eliquis 5mg BID #acute on chronic HFrEF -severely reduced EF noted on echo in September 2018 -Lasix drip since blood pressure holding at 80 and above systolic -hold spironolactone -sodium control 2g daily #CAD s/p CABG and PCI -Plavix 75mg Renal -Cr 1.9, improving -Lasix drip per Dr. Lowry MSK #b/l heel pain -chronic -gabapentin 200mg TID Heme/Onc #leukocytosis -stablized -no fever, urine cx negative -monitor Endocrine #hypothyroidism -Synthroid 75mcg #NIDDM2 -BG normal/borderline during admission -monitor, will add SSI if needed DVT Ppx Eliquis FEN PO fluids monitor Cr sodium-controlled diet (2g daily) Visit type - Emergency Visit Emergency Visit: Yes ED Registration Date: 05/14/19 Care time: The patient presented to the Emergency Department on the above date and was hospitalized for further evaluation of their emergent condition. - New Patient This patient is new to me today: No - Critical Care Critical Care patient: No - Discharge Referral Referred to [facility] Med P.C[facility] No ATTENDING PHYSICIAN STATEMENT I saw and evaluated the patient. I reviewed the resident's note and discussed the case with the resident. I agree with the resident's findings and plan as documented. SUBJECTIVE: OBJECTIVE: ASSESSMENT AND PLAN:
--- NOTE | 2019-05-22 13:57 | PN ---
Teaching Attending Note Name of Resident: Balwinder De Los Santos ATTENDING PHYSICIAN STATEMENT I saw and evaluated the patient. I reviewed the resident's note and discussed the case with the resident. I agree with the resident's findings and plan as documented. SUBJECTIVE: Patient seen and examined in the ICU. Awake and alert. Hemodynamics improved in last 24 hours on Dobutamine @ 5 mcq. Denies CP or SOB. Some dry cough. Intake & Output 05/19/19 05/20/19 05/21/19 05/22/19 23:59 23:59 23:59 23:59 Intake Total 960 729 848 7713 Balance 960 766 259 3201 Weight 200 lb 1.6 oz 197 lb 201 lb 198 lb 11.2 oz Last Vital Signs Temp Pulse Resp BP Pulse Ox 97.4 F L 103 H 18 81/58 L 100 05/22/19 06:00 05/22/19 13:00 05/22/19 13:00 05/22/19 13:00 05/22/19 13:15 Active Medications Acetaminophen (Tylenol Oral Solution -) 650 mg PO Q4H PRN PRN Reason: PAIN LEVEL 6-10 Last Admin: 05/22/19 08:44 Dose: 650 mg Amiodarone HCl (Cordarone -) 400 mg PO BID [facility] Last Admin: 05/22/19 11:00 Dose: 400 mg Apixaban (Eliquis -) 5 mg PO BID [facility] Last Admin: 05/22/19 11:00 Dose: 5 mg Chlorhexidine Gluconate (Hibiclens For Decolonization -) 1 applic TP HS [facility] Last Admin: 05/21/19 21:05 Dose: 1 applic Clopidogrel Bisulfate (Plavix -) 75 mg PO DAILY [facility] Last Admin: 05/22/19 11:00 Dose: 75 mg Docusate Sodium (Colace -) 100 mg PO DAILY [facility] Last Admin: 05/22/19 11:00 Dose: 100 mg Gabapentin (Neurontin -) 200 mg PO TID [facility] Furosemide 100 mg/ Dextrose 50 mls @ 2.5 mls/hr IVPB TITR RINA; Protocol Dobutamine HCl 250,000 mcg/ (Sodium Chloride) 250 mls @ 13.4 mls/hr IV TITR [facility] ; Protocol Last Admin: 05/22/19 12:20 Dose: 2.5 mcg/kg/min, 13.4 mls/hr Levothyroxine Sodium (Synthroid -) 75 mcg PO DAILY@0700 [facility] Last Admin: 05/22/19 06:27 Dose: 75 mcg Mupirocin (Bactroban Ointment (For Decolonization) -) 1 applic NS BID [facility] Stop: 05/25/19 21:59 Last Admin: 05/22/19 11:01 Dose: 1 applic Pantoprazole Sodium (Protonix -) 40 mg PO DAILY [facility] Last Admin: 05/22/19 11:00 Dose: 40 mg Constitutional: Yes: Awake and alert Eyes: Yes: EOM Intact HENT: Yes: Other (NC oxygen) Cardiovascular: Yes: Tachycardia, Murmur (systolic 3/6 R amnd LSB), S1, S2, S3 Respiratory: Yes: Improving bibasilar rales Gastrointestinal: Yes: Normal Bowel Sounds, Soft, Abdomen, Obese Edema: LLE: 2+, RLE: 2+ Peripheral Pulses WNL: Yes Neurological: Yes: Alert, Oriented. No: Dysarthria, Facial Droop Psychiatric: Yes: Alert, Oriented Labs: Laboratory Results - last 24 hr 05/20/19 05/22/19 05/22/19 05:35 05:16 05:16 WBC 9.6 RBC 3.69 Hgb 10.1 L Hct 31.4 L MCV 85.2 MCH 27.4 MCHC 32.2 RDW 15.7 H Plt Count 311 MPV 7.3 L Absolute Neuts (auto) 8.0 Neutrophils % 83.2 H Lymphocytes % 5.5 L Monocytes % 11.0 H Eosinophils % 0.0 Basophils % 0.3 Nucleated RBC % 0 Sodium 134 L 136 Potassium 4.8 4.3 Chloride 98 98 Carbon Dioxide 29 29 Anion Gap 7 L 8 BUN 96.9 H 94.5 H Creatinine 2.4 H 1.9 H Est GFR (CKD-EPI)AfAm 23.76 31.51 Est GFR (CKD-EPI)NonAf 20.50 27.19 Random Glucose 76 81 Calcium 8.4 L 7.9 L Phosphorus 4.0 Magnesium 2.2 1.9 Total Bilirubin 1.3 H 1.1 H AST 14 L 12 L ALT 11 L 11 L Alkaline Phosphatase 152 H 145 H Total Protein 5.3 L 5.1 L Albumin 1.8 L 1.7 L Assessment/Plan: Acute on chronic Severe LV systolic heart failure Severe MR- Ischemic dilated cardiomyopathy post prophylactic ICD CAD CABG/PCI Persistent atrial fibrillation/atrial flutter DM Hypercholesterolemia Hypothyroidism COPD Acute on chronic kidney disease with pre-renal azotemia Anemia Trial of Lasix drip Decrease Dobutamine support as tolerated Supplemental O2 as needed Plavix Strict I & O Daily weights BD TX PRN Amiodarone Hold Entresto To discuss further interventions/management with Cardiology DNR: need to discuss with family GOC in regards to intubation Dr Berry
--- NOTE | 2019-05-22 14:15 | PN ---
Progress Note, Physician History of Present Illness: Pt seen and examined at bedside. She is more awake and alert today. She denies shortness of breath at rest. - Current Medication List Current Medications: Active Medications Acetaminophen (Tylenol Oral Solution -) 650 mg PO Q4H PRN PRN Reason: PAIN LEVEL 6-10 Last Admin: 05/22/19 08:44 Dose: 650 mg Amiodarone HCl (Cordarone -) 400 mg PO BID [facility] Last Admin: 05/22/19 11:00 Dose: 400 mg Apixaban (Eliquis -) 5 mg PO BID [facility] Last Admin: 05/22/19 11:00 Dose: 5 mg Chlorhexidine Gluconate (Hibiclens For Decolonization -) 1 applic TP HS [facility] Last Admin: 05/21/19 21:05 Dose: 1 applic Clopidogrel Bisulfate (Plavix -) 75 mg PO DAILY [facility] Last Admin: 05/22/19 11:00 Dose: 75 mg Docusate Sodium (Colace -) 100 mg PO DAILY [facility] Last Admin: 05/22/19 11:00 Dose: 100 mg Gabapentin (Neurontin -) 200 mg PO TID [facility] Furosemide 100 mg/ Dextrose 50 mls @ 2.5 mls/hr IVPB TITR [facility]; Protocol Last Admin: 05/22/19 14:09 Dose: 5 mg/hr, 2.5 mls/hr Dobutamine HCl 250,000 mcg/ (Sodium Chloride) 250 mls @ 13.4 mls/hr IV TITR [facility] ; Protocol Last Admin: 05/22/19 12:20 Dose: 2.5 mcg/kg/min, 13.4 mls/hr Levothyroxine Sodium (Synthroid -) 75 mcg PO DAILY@0700 [facility] Last Admin: 05/22/19 06:27 Dose: 75 mcg Mupirocin (Bactroban Ointment (For Decolonization) -) 1 applic NS BID [facility] Stop: 05/25/19 21:59 Last Admin: 05/22/19 11:01 Dose: 1 applic Pantoprazole Sodium (Protonix -) 40 mg PO DAILY [facility] Last Admin: 05/22/19 11:00 Dose: 40 mg - Objective Vital Signs: Vital Signs Temperature 97.4 F L 05/22/19 06:00 Pulse Rate 103 H 05/22/19 13:00 Respiratory Rate 18 05/22/19 13:00 Blood Pressure 81/58 L 05/22/19 13:00 O2 Sat by Pulse Oximetry (%) 100 05/22/19 13:15 Constitutional: Yes: Calm Eyes: Yes: Conjunctiva Clear HENT: Yes: Atraumatic Cardiovascular: Yes: S1, S2 Respiratory: Yes: On Nasal O2 Gastrointestinal: Yes: Soft Genitourinary: Yes: Incontinence Musculoskeletal: Yes: WNL Edema: Yes Edema: LLE: 3+, RLE: 3+ Neurological: Yes: Oriented Psychiatric: Yes: Oriented Labs: CBC, BMP 05/22/19 05:16 05/22/19 05:16 - ....Imaging Chest X-ray: Report Reviewed Problem List - Problems (1) LIANNA (acute kidney injury) Code(s): N17.9 - ACUTE KIDNEY FAILURE, UNSPECIFIED Assessment/Plan Current Medications Generic Name Dose Route Start Last Admin Trade Name Freq PRN Reason Stop Dose Admin Acetaminophen 650 mg 05/22/19 08:13 05/22/19 08:44 Tylenol Oral Solution - PO 650 mg Q4H PRN Administration PAIN LEVEL 6-10 Amiodarone HCl 400 mg 05/20/19 22:00 05/22/19 11:00 Cordarone - PO 400 mg BID RINA Administration Apixaban 5 mg 05/22/19 07:59 05/22/19 11:00 Eliquis - PO 5 mg BID RINA Administration Chlorhexidine Gluconate 1 applic 05/20/19 22:00 05/21/19 21:05 Hibiclens For Decolonization - TP 1 applic HS RINA Administration Clopidogrel Bisulfate 75 mg 05/21/19 10:00 05/22/19 11:00 Plavix - PO 75 mg DAILY RINA Administration Docusate Sodium 100 mg 05/21/19 20:30 05/22/19 11:00 Colace - PO 100 mg DAILY RINA Administration Gabapentin 200 mg 05/22/19 10:32 Neurontin - PO TID RINA Furosemide 100 mg/ Dextrose 50 mls @ 2.5 mls/hr 05/22/19 10:45 05/22/19 14:09 IVPB 5 mg/hr TITR RINA 2.5 mls/hr Administration Protocol 5 MG/HR Dobutamine HCl 250,000 mcg/ 250 mls @ 13.4 mls/hr 05/22/19 11:52 05/22/19 12: 20 Sodium Chloride IV 2.5 mcg/kg/min TITR RINA 13.4 mls/hr Administration Protocol 2.5 MCG/KG/MIN Levothyroxine Sodium 75 mcg 05/21/19 07:00 05/22/19 06:27 Synthroid - PO 75 mcg DAILY@0700 RINA Administration Mupirocin 1 applic 05/20/19 22:00 05/22/19 11:01 Bactroban Ointment (For Decolonization) - NS 05/25/19 21:59 1 applic BID RINA Administration Pantoprazole Sodium 40 mg 05/21/19 20:30 05/22/19 11:00 Protonix - PO 40 mg DAILY RINA Administration Impression 1. LIANNA 2. CHF 3. volume overload 4. HTN 5. HLD 6. DM 7. CAD 8. COPD 9. active smoker 10. anasarca 11. hypotension 12. hx of positive danielle Plan - agree with lasix drip - keep negative - or rn is improving - monitor bp - ICU care - lianna in part cardiorenal
--- NOTE | 2019-05-22 17:26 | PN ---
Teaching Attending Note Name of Resident: Juany Herrera ATTENDING PHYSICIAN STATEMENT I saw and evaluated the patient. I reviewed the resident's note and discussed the case with the resident. I agree with the resident's findings and plan as documented. SUBJECTIVE: Patient is feeling better with no acute distress. c/o generalized pain. Vital Signs Temperature 97.7 F 05/22/19 14:00 Pulse Rate 107 H 05/22/19 15:00 Respiratory Rate 22 H 05/22/19 15:00 Blood Pressure 95/54 L 05/22/19 15:00 O2 Sat by Pulse Oximetry (%) 100 05/22/19 13:15 GENERAL: The patient is awake, alert, and oriented, in no acute distress. HEAD: Normal with no signs of trauma. EYES: PERRL, EOMI, sclera anicteric, conjunctiva clear. ENT: Ears normal, oropharynx clear without exudates, moist mucous membranes. NECK: Trachea midline, full range of motion, supple. LUNGS:decreased Breath sounds bl, no wheezes, no crackles, no accessory muscle use. HEART: Regular rate and rhythm, S1, S2 positive, brennen 3/6 , no rub or gallop. ABDOMEN: Soft, NT, BS+, no guarding, no rebound, no hepatosplenomegaly, no masses appreciated EXTREMITIES: 2+ pulses, warm, well-perfused, positive for anasarca generalized improving , 2+ edema of lower extremities NEUROLOGICAL: Cranial nerves II through XII grossly intact. Normal speech, gait not observed. SKIN: Warm, dry, normal turgor, no rashes or lesions noted CBCD WBC 9.6 K/mm3 (4.0-10.0) 05/22/19 05:16 RBC 3.69 M/mm3 (3.60-5.2) 05/22/19 05:16 Hgb 10.1 GM/dL (10.7-15.3) L 05/22/19 05:16 Hct 31.4 % (32.4-45.2) L 05/22/19 05:16 MCV 85.2 fl (80-96) 05/22/19 05:16 MCHC 32.2 g/dl (32.0-36.0) 05/22/19 05:16 RDW 15.7 % (11.6-15.6) H 05/22/19 05:16 Plt Count 311 K/MM3 (134-434) 05/22/19 05:16 MPV 7.3 fl (7.5-11.1) L 05/22/19 05:16 CMP Sodium 136 mmol/L (136-145) 05/22/19 05:16 Potassium 4.3 mmol/L (3.5-5.1) 05/22/19 05:16 Chloride 98 mmol/L (98-107) 05/22/19 05:16 Carbon Dioxide 29 mmol/L (21-32) 05/22/19 05:16 Anion Gap 8 MMOL/L (8-16) 05/22/19 05:16 BUN 94.5 mg/dL (7-18) H 05/22/19 05:16 Creatinine 1.9 mg/dL (0.55-1.3) H 05/22/19 05:16 Random Glucose 81 mg/dL (74-106) 05/22/19 05:16 Calcium 7.9 mg/dL (8.5-10.1) L 05/22/19 05:16 Total Bilirubin 1.1 mg/dL (0.2-1) H 05/22/19 05:16 AST 12 U/L (15-37) L 05/22/19 05:16 ALT 11 U/L (13-61) L 05/22/19 05:16 Alkaline Phosphatase 145 U/L (45-117) H 05/22/19 05:16 Total Protein 5.1 g/dl (6.4-8.2) L 05/22/19 05:16 Albumin 1.7 g/dl (3.4-5.0) L 05/22/19 05:16 CARDIAC ENZYMES Troponin I 0.06 ng/ml (0.00-0.05) H 05/14/19 05:45 Current Medications Generic Name Dose Route Start Last Admin Trade Name Freq PRN Reason Stop Dose Admin Acetaminophen 650 mg 05/22/19 08:13 05/22/19 08:44 Tylenol Oral Solution - PO 650 mg Q4H PRN Administration PAIN LEVEL 6-10 Amiodarone HCl 400 mg 05/20/19 22:00 05/22/19 11:00 Cordarone - PO 400 mg BID RINA Administration Apixaban 5 mg 05/22/19 07:59 05/22/19 11:00 Eliquis - PO 5 mg BID RINA Administration Chlorhexidine Gluconate 1 applic 05/20/19 22:00 05/21/19 21:05 Hibiclens For Decolonization - TP 1 applic HS RINA Administration Clopidogrel Bisulfate 75 mg 05/21/19 10:00 05/22/19 11:00 Plavix - PO 75 mg DAILY RINA Administration Docusate Sodium 100 mg 05/21/19 20:30 05/22/19 11:00 Colace - PO 100 mg DAILY RINA Administration Gabapentin 200 mg 05/22/19 10:32 05/22/19 14:15 Neurontin - PO 200 mg TID RINA Administration Furosemide 100 mg/ Dextrose 50 mls @ 2.5 mls/hr 05/22/19 10:45 05/22/19 14:09 IVPB 5 mg/hr TITR RINA 2.5 mls/hr Administration Protocol 5 MG/HR Dobutamine HCl 250,000 mcg/ 250 mls @ 13.4 mls/hr 05/22/19 11:52 05/22/19 12: 20 Sodium Chloride IV 2.5 mcg/kg/min TITR RINA 13.4 mls/hr Administration Protocol 2.5 MCG/KG/MIN Levothyroxine Sodium 75 mcg 05/21/19 07:00 05/22/19 06:27 Synthroid - PO 75 mcg DAILY@0700 RINA Administration Mupirocin 1 applic 05/20/19 22:00 05/22/19 11:01 Bactroban Ointment (For Decolonization) - NS 05/25/19 21:59 1 applic BID RINA Administration Pantoprazole Sodium 40 mg 05/21/19 20:30 05/22/19 11:00 Protonix - PO 40 mg DAILY RINA Administration Home Medications Medication Instructions Recorded Clopidogrel Bisulfate [Plavix -] 75 mg PO DAILY #30 tablet 08/02/17 Levothyroxine [Synthroid -] 75 mcg PO DAILY@0700 30 Days #30 08/02/17 tablet Spironolactone 25 mg PO DAILY 12/09/18 Apixaban [Eliquis -] 5 mg PO BID #60 tablet 05/02/19 Furosemide [Lasix] 80 mg PO DAILY 05/14/19 Metoprolol Succinate [Toprol XL -] 100 mg PO DAILY 12/25/19 Sacubitril/Valsartan [Entresto 24 1 each PO BID 05/14/19 mg-26 mg Tablet] Microbiology 05/14/19 03:00 Urine - Urine Lam Urine Culture - Final NO GROWTH OBTAINED ASSESSMENT AND PLAN: Patient is a 61yof, with a PMHx of HTN, HLD, CAD, CO(X2), s/p defibrillator/ pacemaker and CABG, CHF, DM II, kidney stones, peripheral neuropathy, recently diagnosed A fib, hypothyroidism, and non compliance who presented with SOB , AMS , and was found to have Acute CHF and hypotension # Acute on chronic systolic CHF, on Dobutamine gtt/lasix drip continue as per cardio , monitor BP, nephro/cardio on the case # acute over chronic LIANNA due to CHF, GFR is 32 now 5.0mg eliquis bid, hold Entresto , and coreg , spironolactone # Cardiogentic shock, on dobutamine drip # A fib with RVR, cont Amiodarone # Leukocytosis.improved , will monitor # Hx of hypothyroidism: continue As per cardio: Overall poor prognosis considering her advanced class II-III NYHA classification LV/RV failure- may benefit eventually from home inotrope infusion- will require advanced heart failure evaluation. iCu care
[2019-05-22] MEDS: CHLORHEXIDINE GLUCONATE 4% CLEANSER FOR DECOLONIZATION TP SCH (21:10)
[2019-05-22] MEDS ORDERED: traMADol HCL 50 MG TABLET PO ONE (23:53)
[2019-05-23 06:36] VITALS: TEMP 98.5
[2019-05-23 06:43] LABS: BASO % 0.1 % (0-2.0); HEMATOCRIT 29.9 % (32.4-45.2); HEMOGLOBIN 9.8 GM/dL (10.7-15.3); LYMPH % 6.5 % (8-40); MCH 27.7 pg (25.7-33.7); MCHC 32.8 g/dl (32.0-36.0); MEAN CELL VOLUME 84.6 fl (80-96); MEAN PLT VOLUME 6.9 fl (7.5-11.1); NEUT % 82.4 % (42.8-82.8); PLATELET COUNT 290 K/MM3 (134-434); RBC 3.53 M/mm3 (3.60-5.2); RDW 15.3 % (11.6-15.6); WHITE BLOOD COUNT 9.1 K/mm3 (4.0-10.0)
[2019-05-23] MEDS: LEVOTHYROXINE NA 75 MCG TABLET (FP) PO SCH (06:43)
[2019-05-23] MEDS: GABAPENTIN 100 MG CAPSULE (FP) PO SCH (06:43)
[2019-05-23 07:17] LABS: ALBUMIN 1.8 g/dl (3.4-5.0); BLOOD UREA NITROGEN 73.4 mg/dL (7-18); CALCIUM 8.1 mg/dL (8.5-10.1); CREATININE 1.4 mg/dL (0.55-1.3); MAGNESIUM 1.8 mg/dL (1.8-2.4); TOT PROT 5.3 g/dl (6.4-8.2)
[2019-05-23] MEDS ORDERED: MAGNESIUM OXIDE 400 MG TABLET (FP) PO ONE (08:06)
[2019-05-23] MEDS: PANTOPRAZOLE 40 MG TABLET (FP) PO SCH (09:17)
[2019-05-23] MEDS: AMIODARONE HCL 200 MG TABLET (FP) PO SCH (09:17)
[2019-05-23] MEDS: MUPIROCIN 2% TOPICAL OINTMENT FOR DECOLONIZATION NS SCH (09:17)
[2019-05-23] MEDS: DOCUSATE SODIUM 100 MG CAPSULE (FP) PO SCH (09:17)
[2019-05-23] MEDS: APIXABAN 5 MG TABLET PO SCH (09:17)
[2019-05-23] MEDS: CLOPIDOGREL BISULFATE 75 MG TABLET (FP) PO SCH (09:17)
--- NOTE | 2019-05-23 10:42 | PN ---
Teaching Attending Note Name of Resident: Balwinder De Los Santos ATTENDING PHYSICIAN STATEMENT I saw and evaluated the patient. I reviewed the resident's note and discussed the case with the resident. I agree with the resident's findings and plan as documented. SUBJECTIVE: Patient seen and examined in the ICU. Awake and alert. Clinically looks better. Hemodynamics marginal on 2.5 mcq Dobutamine. Denies CP or SOB. Some dry cough. Intake & Output 05/20/19 05/21/19 05/22/19 05/23/19 23:59 23:59 23:59 23:59 Intake Total 075 097 0006.7 587 Balance 047 659 6284.7 587 Weight 197 lb 201 lb 198 lb 11.2 oz 193 lb 11.2 oz Last Vital Signs Temp Pulse Resp BP Pulse Ox 98.5 F 106 H 17 89/42 L 98 05/23/19 06:00 05/23/19 07:00 05/23/19 07:00 05/23/19 07:00 05/23/19 02:51 Active Medications Acetaminophen (Tylenol Oral Solution -) 650 mg PO Q4H PRN PRN Reason: PAIN LEVEL 6-10 Last Admin: 05/22/19 08:44 Dose: 650 mg Amiodarone HCl (Cordarone -) 400 mg PO BID [facility] Last Admin: 05/23/19 09:17 Dose: 400 mg Amiodarone HCl (Cordarone -) 200 mg PO BID [facility] Apixaban (Eliquis -) 5 mg PO BID [facility] Last Admin: 05/23/19 09:17 Dose: 5 mg Chlorhexidine Gluconate (Hibiclens For Decolonization -) 1 applic TP HS [facility] Last Admin: 05/22/19 21:10 Dose: 1 applic Clopidogrel Bisulfate (Plavix -) 75 mg PO DAILY [facility] Last Admin: 05/23/19 09:17 Dose: 75 mg Docusate Sodium (Colace -) 100 mg PO DAILY [facility] Last Admin: 05/23/19 09:17 Dose: 100 mg Gabapentin (Neurontin -) 200 mg PO TID [facility] Last Admin: 05/23/19 06:43 Dose: 200 mg Dobutamine HCl 250,000 mcg/ (Sodium Chloride) 250 mls @ 13.4 mls/hr IV TITR [facility] ; Protocol Last Titration: 05/22/19 21:21 Dose: 5 mcg/kg/min, 26.8 mls/hr Furosemide 100 mg/ Dextrose 50 mls @ 2.5 mls/hr IVPB TITR [facility]; Protocol Last Admin: 05/22/19 21:16 Dose: 5 mg/hr, 2.5 mls/hr Levothyroxine Sodium (Synthroid -) 75 mcg PO DAILY@0700 [facility] Last Admin: 05/23/19 06:43 Dose: 75 mcg Mupirocin (Bactroban Ointment (For Decolonization) -) 1 applic NS BID [facility] Stop: 05/25/19 21:59 Last Admin: 05/23/19 09:17 Dose: 1 applic Pantoprazole Sodium (Protonix -) 40 mg PO DAILY [facility] Last Admin: 05/23/19 09:17 Dose: 40 mg Constitutional: Yes: Awake and alert Eyes: Yes: EOM Intact HENT: Yes: Other ([place] oxygen) Cardiovascular: Yes: Tachycardia, Murmur (systolic 3/6 R amnd LSB), S1, S2, S3 Respiratory: Yes: Improving bibasilar rales Gastrointestinal: Yes: Normal Bowel Sounds, Soft, Abdomen, Obese Edema: LLE: 2+, RLE: 2+ Peripheral Pulses WNL: Yes Neurological: Yes: Alert, Oriented. No: Dysarthria, Facial Droop Psychiatric: Yes: Alert, Oriented Labs: Laboratory Results - last 24 hr 05/23/19 05/23/19 05:45 05:45 WBC 9.1 RBC 3.53 L Hgb 9.8 L Hct 29.9 L MCV 84.6 MCH 27.7 MCHC 32.8 RDW 15.3 Plt Count 290 MPV 6.9 L Absolute Neuts (auto) 7.5 Neutrophils % 82.4 Lymphocytes % 6.5 L Monocytes % 11.0 H Eosinophils % 0.0 Basophils % 0.1 Nucleated RBC % 0 Sodium 137 Potassium 4.0 Chloride 99 Carbon Dioxide 33 H Anion Gap 5 L BUN 73.4 H Creatinine 1.4 H Est GFR (CKD-EPI)AfAm 45.58 Est GFR (CKD-EPI)NonAf 39.33 Random Glucose 76 Calcium 8.1 L Phosphorus 3.0 Magnesium 1.8 Total Bilirubin 1.0 AST 11 L ALT 9 L Alkaline Phosphatase 139 H Total Protein 5.3 L Albumin 1.8 L Assessment/Plan: Acute on chronic Severe LV systolic heart failure Severe MR- Ischemic dilated cardiomyopathy post prophylactic ICD CAD CABG/PCI Persistent atrial fibrillation/atrial flutter DM Hypercholesterolemia Hypothyroidism COPD Acute on chronic kidney disease with pre-renal azotemia Anemia Dobutamine support as tolerated Diurectics as tolerated Supplemental O2 as needed Plavix Strict I & O Daily weights BD TX PRN Amiodarone Hold Entresto To discuss further interventions/management with Cardiology DNR: need to discuss with family GOC in regards to intubation Overall prognosis is poor in this end stage cardiac patient Dr Berry
--- NOTE | 2019-05-23 11:40 | PN ---
Physical Exam: SUBJECTIVE: Patient seen and examined. She denies chest pain, difficulty breathing, nausea, or abdominal pain. She reports lower back pain and sharp b/l heel pain. OBJECTIVE: Vital Signs Period Temp Pulse Resp BP Sys/Santoro Pulse Ox Last 24 Hr 97.7 F-98.9 F 96-107 12-22 53-118/42-71 98-100 GENERAL: The patient is awake, alert, and oriented in no distress. HEAD: Normal with no signs of trauma. EYES: PERRL, extraocular movements intact, conjunctiva clear. ENT: Ears normal, nares patent, moist mucous membranes. NECK: Trachea midline, full range of motion, JVD LUNGS: Breath sounds equal, clear to auscultation anteriorly, no wheezes HEART: Tachycardic and regular rhythm, no murmur appreciated, regular S1, S2 ABDOMEN: Soft, generalized tenderness to palpation, nondistended, normoactive bowel sounds, no guarding EXTREMITIES: +1 edema b/l lower extremities to above knees, heels tender to palpation, gross movement intact b/l NEUROLOGICAL: Cranial nerves II through XII grossly intact. Normal speech. PSYCH: Agitated SKIN: Warm, dry, normal turgor tele: sinus tachycardia Laboratory Results - last 24 hr 05/23/19 05/23/19 05:45 05:45 WBC 9.1 RBC 3.53 L Hgb 9.8 L Hct 29.9 L MCV 84.6 MCH 27.7 MCHC 32.8 RDW 15.3 Plt Count 290 MPV 6.9 L Absolute Neuts (auto) 7.5 Neutrophils % 82.4 Lymphocytes % 6.5 L Monocytes % 11.0 H Eosinophils % 0.0 Basophils % 0.1 Nucleated RBC % 0 Sodium 137 Potassium 4.0 Chloride 99 Carbon Dioxide 33 H Anion Gap 5 L BUN 73.4 H Creatinine 1.4 H Est GFR (CKD-EPI)AfAm 45.58 Est GFR (CKD-EPI)NonAf 39.33 Random Glucose 76 Calcium 8.1 L Phosphorus 3.0 Magnesium 1.8 Total Bilirubin 1.0 AST 11 L ALT 9 L Alkaline Phosphatase 139 H Total Protein 5.3 L Albumin 1.8 L Active Medications Generic Name Dose Route Start Last Admin Trade Name Freq PRN Reason Stop Dose Admin Acetaminophen 650 mg 05/22/19 08:13 05/22/19 08:44 Tylenol Oral Solution - PO 650 mg Q4H PRN Administration PAIN LEVEL 6-10 Amiodarone HCl 400 mg 05/20/19 22:00 05/23/19 09:17 Cordarone - PO 400 mg BID RINA Administration Amiodarone HCl 200 mg 05/24/19 10:00 Cordarone - PO BID RINA Apixaban 5 mg 05/22/19 07:59 05/23/19 09:17 Eliquis - PO 5 mg BID RINA Administration Chlorhexidine Gluconate 1 applic 05/20/19 22:00 05/22/19 21:10 Hibiclens For Decolonization - TP 1 applic HS RINA Administration Clopidogrel Bisulfate 75 mg 05/21/19 10:00 05/23/19 09:17 Plavix - PO 75 mg DAILY RINA Administration Docusate Sodium 100 mg 05/21/19 20:30 05/23/19 09:17 Colace - PO 100 mg DAILY RINA Administration Gabapentin 200 mg 05/22/19 10:32 05/23/19 06:43 Neurontin - PO 200 mg TID RINA Administration Dobutamine HCl 250,000 mcg/ 250 mls @ 13.4 mls/hr 05/22/19 11:52 05/22/19 21: 21 Sodium Chloride IV 5 mcg/kg/min TITR RINA 26.8 mls/hr Titration Protocol 2.5 MCG/KG/MIN Furosemide 100 mg/ Dextrose 50 mls @ 2.5 mls/hr 05/22/19 20:14 05/22/19 21:16 IVPB 5 mg/hr TITR RINA 2.5 mls/hr Administration Protocol 5 MG/HR Levothyroxine Sodium 75 mcg 05/21/19 07:00 05/23/19 06:43 Synthroid - PO 75 mcg DAILY@0700 RINA Administration Mupirocin 1 applic 05/20/19 22:00 05/23/19 09:17 Bactroban Ointment (For Decolonization) - NS 05/25/19 21:59 1 applic BID RINA Administration Pantoprazole Sodium 40 mg 05/21/19 20:30 05/23/19 09:17 Protonix - PO 40 mg DAILY RINA Administration ASSESSMENT/PLAN: Ms. Álvaro Prado is a 63y/o female with HFrEF (s/p ICD), a-fib, HTN, HLD, CAD (s /p CABG and PCI), s/p NSTEMI, non-IDDM2, COPD (5L NC), and hypothyroidism who presents from [facility] for LIANNA. #hypotension -systolic into 80s today -dobutamine 5mcg/kg/min -monitor for worsening tachycardia -hold Entresto -hold carvedilol -ICU monitoring -cards following -pulm following -nephro following #acute on chronic HFrEF -severely reduced EF noted on echo in September 2018 -no net weight loss since admission -Lasix drip 5mg/hr -hold Entresto -hold spironolactone -sodium control 2g daily #LIANNA, likely cardiorenal -Cr 1.9-->1.4 -continue diuresis -monitor #b/l heel pain -chronic -gabapentin increased to 200mg TID #a-fib/sinus tachycardia -carvedilol held -amiodarone 400mg BID for 1 week, then reassess -Eliquis 5mg BID #CAD s/p CABG and PCI -Plavix 75mg #hypothyroidism -Synthroid 75mcg #NIDDM2 -BG normal/borderline during admission -monitor, will add SSI if needed #leukocytosis, resolved -no fever, urine cx negative -monitor DVT Ppx Eliquis FEN PO fluids monitor Cr sodium-controlled diet (2g daily) dispo ICU code status DNR/DNI, verified with patient 05/15/19 ATTENDING PHYSICIAN STATEMENT I saw and evaluated the patient. I reviewed the resident's note and discussed the case with the resident. I agree with the resident's findings and plan as documented. SUBJECTIVE: OBJECTIVE: ASSESSMENT AND PLAN:
[2019-05-23] MEDS: DOBUTAMINE HCL 250,000 MCG in SODIUM CHLORIDE 230 ML IV SCH (12:11)
[2019-05-23 12:13] VITALS: BP 88/57; PULSE 99
--- NOTE | 2019-05-23 13:34 | DS ---
Physical Exam: SUBJECTIVE: Patient seen and examined. She denies chest pain, difficulty breathing, nausea, or abdominal pain. She reports lower back pain and sharp b/l heel pain. OBJECTIVE: Vital Signs Period Temp Pulse Resp BP Sys/Santoro Pulse Ox Last 24 Hr 97.7 F-98.9 F 96-107 12-22 53-118/42-71 98-100 PHYSICAL EXAM GENERAL: The patient is awake, alert, and oriented in no distress. HEAD: Normal with no signs of trauma. EYES: PERRL, extraocular movements intact, conjunctiva clear. ENT: Ears normal, nares patent, moist mucous membranes. NECK: Trachea midline, full range of motion, JVD LUNGS: Breath sounds equal, clear to auscultation anteriorly, no wheezes HEART: Tachycardic and regular rhythm, no murmur appreciated, regular S1, S2 ABDOMEN: Soft, generalized tenderness to palpation, nondistended, normoactive bowel sounds, no guarding EXTREMITIES: +1 edema b/l lower extremities to above knees, heels tender to palpation, gross movement intact b/l NEUROLOGICAL: Cranial nerves II through XII grossly intact. Normal speech. PSYCH: Agitated SKIN: Warm, dry, normal turgor tele: sinus tachycardia LABS Laboratory Results - last 24 hr 05/23/19 05/23/19 05/23/19 05:45 05:45 12:53 WBC 9.1 RBC 3.53 L Hgb 9.8 L Hct 29.9 L MCV 84.6 MCH 27.7 MCHC 32.8 RDW 15.3 Plt Count 290 MPV 6.9 L Absolute Neuts (auto) 7.5 Neutrophils % 82.4 Lymphocytes % 6.5 L Monocytes % 11.0 H Eosinophils % 0.0 Basophils % 0.1 Nucleated RBC % 0 Sodium 137 Potassium 4.0 Chloride 99 Carbon Dioxide 33 H Anion Gap 5 L BUN 73.4 H Creatinine 1.4 H Est GFR (CKD-EPI)AfAm 45.58 Est GFR (CKD-EPI)NonAf 39.33 POC Glucometer 89 Random Glucose 76 Calcium 8.1 L Phosphorus 3.0 Magnesium 1.8 Total Bilirubin 1.0 AST 11 L ALT 9 L Alkaline Phosphatase 139 H Total Protein 5.3 L Albumin 1.8 L HOSPITAL COURSE: Ms. Álvaro Prado is a 63y/o female with HFrEF (s/p ICD), a-fib, HTN, HLD, CAD (s /p CABG and PCI), s/p NSTEMI, non-IDDM2, COPD (5L NC), and hypothyroidism who presents from [facility] for LIANNA. Cr was 1.9 at admission and peaked at 2.5. Pt was given Lasix IV and placed on salt restricted diet. Patient was tachycardic to 120s but did not report chest pain or palpitations. Entresto, carvedilol and spironolactone were initially held, restarted, then held again. Amiodarone was initiated for HR control and HR was in 100s. SBP dropped into the 80s and pt was placed on dobutamine drip 2.5-5mcg/kg/min. Her pressure improved and a Lasix drip 5mg/hr was started. Pt still was edematous on exam. CXRs did not show much change throughout course. She was transferred to [facility] for further care of acute on chronic HFrEF exacerbation and hypotension with tachycardia. Pt reported b/l heel pain. Gabapentin 100mg TID was initiated with no improvement so dose was increased to 200mg TID. Plavix and Synthroid were continued as well as Eliquis. Date of Admission:05/14/19 Date of Discharge: 05/23/19 Minutes to complete discharge: 35 Discharge Summary Problems reviewed: Yes Reason For Visit: ACUTE KIDNEY INJURY,CONGESTIVE HEART FAILURE,ACUTE Current Active Problems LIANNA (acute kidney injury) (Acute) Acute on chronic renal failure (Acute) Hypotension (Acute) Severe pulmonary arterial systolic hypertension (Acute) Condition: Guarded - Instructions Diet, Activity, Other Instructions: Being transferred to [facility] under Dr Palafox in CCU for higher level of care. Disposition: TRANSFER ACUTE CARE/OTHER HOSP - Home Medications Comprehensive Discharge Medication List: Ambulatory Orders Clopidogrel Bisulfate [Plavix -] 75 mg PO DAILY #30 tablet 08/02/17 Levothyroxine [Synthroid -] 75 mcg PO DAILY@0700 30 Days #30 tablet 08/02/17 Spironolactone 25 mg PO DAILY 12/09/18 Apixaban [Eliquis -] 5 mg PO BID #60 tablet 05/02/19 Furosemide [Lasix] 80 mg PO DAILY 05/14/19 Metoprolol Succinate [Toprol XL -] 100 mg PO DAILY 05/14/19 Sacubitril/Valsartan [Entresto 24 mg-26 mg Tablet] 1 each PO BID 05/14/19 This patient is new to me today: No Emergency Visit: Yes ED Registration Date: 05/14/19 Care time: The patient presented to the Emergency Department on the above date and was hospitalized for further evaluation of their emergent condition. Critical Care patient: Yes Total Critical Care Time (in minutes): 35 Critical Care Statement: The care of this patient involved high complexity decision making to prevent further life threatening deterioration of the patient 's condition and/or to evaluate & treat vital organ system(s) failure or risk of failure. - Discharge Referral Referred to [facility] No ATTENDING PHYSICIAN STATEMENT I saw and evaluated the patient. I reviewed the resident's note and discussed the case with the resident. I agree with the resident's findings and plan as documented. SUBJECTIVE: OBJECTIVE: ASSESSMENT AND PLAN:
--- NOTE | 2019-05-23 13:54 | PN ---
Teaching Attending Note Name of Resident: Juany Herrera ATTENDING PHYSICIAN STATEMENT I saw and evaluated the patient. I reviewed the resident's note and discussed the case with the resident. I agree with the resident's findings and plan as documented. SUBJECTIVE: Patient is c/o not feeling well in general . Running low BP but awake, alert and carries on further discussion. Vital Signs Temperature 98.5 F 05/23/19 06:00 Pulse Rate 99 H 05/23/19 12:13 Respiratory Rate 18 05/23/19 12:22 Blood Pressure 88/57 L 05/23/19 12:13 O2 Sat by Pulse Oximetry (%) 98 05/23/19 12:22 GENERAL: The patient is awake, alert, and oriented, with generalized aches HEAD: Normal with no signs of trauma. EYES: PERRL, EOMI, sclera anicteric, conjunctiva clear. ENT: Ears normal, oropharynx clear without exudates, moist mucous membranes. NECK: Trachea midline, full range of motion, supple. LUNGS:decreased Breath sounds bl, no wheezes, no crackles, no accessory muscle use. HEART: Regular rate and rhythm, S1, S2 positive, brennen 3/6 , no rub or gallop. ABDOMEN: Soft, NT, BS+, no guarding, no rebound, no hepatosplenomegaly, no masses appreciated EXTREMITIES: 2+ pulses, warm, well-perfused, positive for anasarca generalized improving , 1+ edema of lower extremities NEUROLOGICAL: Cranial nerves II through XII grossly intact. Normal speech, gait not observed. SKIN: Warm, dry, normal turgor, no rashes or lesions noted CBCD WBC 9.1 K/mm3 (4.0-10.0) 05/23/19 05:45 RBC 3.53 M/mm3 (3.60-5.2) L 05/23/19 05:45 Hgb 9.8 GM/dL (10.7-15.3) L 05/23/19 05:45 Hct 29.9 % (32.4-45.2) L 05/23/19 05:45 MCV 84.6 fl (80-96) 05/23/19 05:45 MCHC 32.8 g/dl (32.0-36.0) 05/23/19 05:45 RDW 15.3 % (11.6-15.6) 05/23/19 05:45 Plt Count 290 K/MM3 (134-434) 05/23/19 05:45 MPV 6.9 fl (7.5-11.1) L 05/23/19 05:45 CMP Sodium 137 mmol/L (136-145) 05/23/19 05:45 Potassium 4.0 mmol/L (3.5-5.1) 05/23/19 05:45 Chloride 99 mmol/L (98-107) 05/23/19 05:45 Carbon Dioxide 33 mmol/L (21-32) H 05/23/19 05:45 Anion Gap 5 MMOL/L (8-16) L 05/23/19 05:45 BUN 73.4 mg/dL (7-18) H 05/23/19 05:45 Creatinine 1.4 mg/dL (0.55-1.3) H 05/23/19 05:45 Random Glucose 76 mg/dL (74-106) 05/23/19 05:45 Calcium 8.1 mg/dL (8.5-10.1) L 05/23/19 05:45 Total Bilirubin 1.0 mg/dL (0.2-1) 05/23/19 05:45 AST 11 U/L (15-37) L 05/23/19 05:45 ALT 9 U/L (13-61) L 05/23/19 05:45 Alkaline Phosphatase 139 U/L (45-117) H 05/23/19 05:45 Total Protein 5.3 g/dl (6.4-8.2) L 05/23/19 05:45 Albumin 1.8 g/dl (3.4-5.0) L 05/23/19 05:45 CARDIAC ENZYMES Troponin I 0.06 ng/ml (0.00-0.05) H 05/14/19 05:45 Current Medications Generic Name Dose Route Start Last Admin Trade Name Freq PRN Reason Stop Dose Admin Acetaminophen 650 mg 05/22/19 08:13 05/22/19 08:44 Tylenol Oral Solution - PO 650 mg Q4H PRN Administration PAIN LEVEL 6-10 Amiodarone HCl 400 mg 05/20/19 22:00 05/22/19 11:00 Cordarone - PO 400 mg BID RINA Administration Apixaban 5 mg 05/22/19 07:59 05/22/19 11:00 Eliquis - PO 5 mg BID RINA Administration Chlorhexidine Gluconate 1 applic 05/20/19 22:00 05/21/19 21:05 Hibiclens For Decolonization - TP 1 applic HS RINA Administration Clopidogrel Bisulfate 75 mg 05/21/19 10:00 05/22/19 11:00 Plavix - PO 75 mg DAILY RINA Administration Docusate Sodium 100 mg 05/21/19 20:30 05/22/19 11:00 Colace - PO 100 mg DAILY RINA Administration Gabapentin 200 mg 05/22/19 10:32 05/22/19 14:15 Neurontin - PO 200 mg TID RINA Administration Furosemide 100 mg/ Dextrose 50 mls @ 2.5 mls/hr 05/22/19 10:45 05/22/19 14:09 IVPB 5 mg/hr TITR RINA 2.5 mls/hr Administration Protocol 5 MG/HR Dobutamine HCl 250,000 mcg/ 250 mls @ 13.4 mls/hr 05/22/19 11:52 05/22/19 12: 20 Sodium Chloride IV 2.5 mcg/kg/min TITR RINA 13.4 mls/hr Administration Protocol 2.5 MCG/KG/MIN Levothyroxine Sodium 75 mcg 05/21/19 07:00 05/22/19 06:27 Synthroid - PO 75 mcg DAILY@0700 RINA Administration Mupirocin 1 applic 05/20/19 22:00 05/22/19 11:01 Bactroban Ointment (For Decolonization) - NS 05/25/19 21:59 1 applic BID RINA Administration Pantoprazole Sodium 40 mg 05/21/19 20:30 05/22/19 11:00 Protonix - PO 40 mg DAILY RINA Administration Home Medications Medication Instructions Recorded Clopidogrel Bisulfate [Plavix -] 75 mg PO DAILY #30 tablet 08/02/17 Levothyroxine [Synthroid -] 75 mcg PO DAILY@0700 30 Days #30 08/02/17 tablet Spironolactone 25 mg PO DAILY 12/09/18 Apixaban [Eliquis -] 5 mg PO BID #60 tablet 05/02/19 Furosemide [Lasix] 80 mg PO DAILY 05/14/19 Metoprolol Succinate [Toprol XL -] 100 mg PO DAILY 05/14/19 Sacubitril/Valsartan [Entresto 24 1 each PO BID 05/14/19 mg-26 mg Tablet] Microbiology 05/14/19 03:00 Urine - Urine Lam Urine Culture - Final NO GROWTH OBTAINED ASSESSMENT AND PLAN: Patient is a 61yof, with a PMHx of HTN, HLD, CAD, OK(X2), s/p defibrillator/ pacemaker and CABG, CHF, DM II, kidney stones, peripheral neuropathy, recently diagnosed A fib, hypothyroidism, and non compliance who presented with SOB , AMS , and was found to have Acute CHF and hypotension # Acute on chronic systolic CHF, on Dobutamine gtt/lasix drip continue as per cardio ,low BP running, discussed with cardio, nephro/cardio on the case patient is being transferred to [facility]. as per cardio's request. # acute over chronic LIANNA due to CHF, improving, improved furhter , continue to hold Entresto , and coreg , spironolactone # Cardiogentic shock, on dobutamine drip # A fib with RVR, cont Amiodarone # Leukocytosis.improved , will monitor # Hx of hypothyroidism: continue As per cardio: Overall poor prognosis considering her advanced class II-III NYHA classification LV/RV failure- may benefit eventually from home inotrope infusion- will require advanced heart failure evaluation. patient is getting transferred to [facility]. for further care. iCu care
--- NOTE | 2019-05-23 13:56 | PN ---
Progress Note, Physician History of Present Illness: Pt seen and examined at bedside. She is awake and alert. She is being transferred to a tertiary care center. - Objective Vital Signs: Vital Signs Temperature 98.5 F 05/23/19 06:00 Pulse Rate 99 H 05/23/19 12:13 Respiratory Rate 18 05/23/19 12:22 Blood Pressure 88/57 L 05/23/19 12:13 O2 Sat by Pulse Oximetry (%) 98 05/23/19 12:22 Constitutional: Yes: Calm Eyes: Yes: Conjunctiva Clear HENT: Yes: Atraumatic Cardiovascular: Yes: S1, S2 Respiratory: Yes: On Nasal O2 Gastrointestinal: Yes: Soft Genitourinary: Yes: Incontinence Musculoskeletal: Yes: WNL Edema: Yes Edema: LLE: 2+, RLE: 2+ Neurological: Yes: Oriented Psychiatric: Yes: Oriented Labs: CBC, BMP 05/23/19 05:45 05/23/19 05:45 Problem List - Problems (1) LIANNA (acute kidney injury) Code(s): N17.9 - ACUTE KIDNEY FAILURE, UNSPECIFIED Assessment/Plan Impression 1. LIANNA 2. CHF 3. volume overload 4. HTN 5. HLD 6. DM 7. CAD 8. COPD 9. active smoker 10. anasarca 11. hypotension 12. hx of positive danielle Plan - renal function is improving - pt being transferred to tertiary care center - cont lasix - doctor of podiatry is improving - monitor bp - ICU care - lianna in part cardiorenal
--- NOTE | 2019-05-23 17:33 | PN ---
Physical Exam: SUBJECTIVE: Patient seen and examined Sitting up and feeding herself patients dobutamine had to be increased from 2.5mcg back to 5mcg due to persistent hypotension no other acute events OBJECTIVE: Vital Signs Period Temp Pulse Resp BP Sys/Santoro Pulse Ox Last 24 Hr 98.5 F-98.9 F 96-107 12-22 53-118/42-69 98-100 GENERAL: The patient is awake, alert, and fully oriented, HEAD: Normal with no signs of trauma. EYES: PERRL, extraocular movements intact, sclera anicteric, conjunctiva clear. No ptosis. ENT: Ears normal, nares patent, oropharynx clear without exudates, moist mucous membranes. NECK: Trachea midline, LUNGS: Breath sounds equal, clear to auscultation bilaterally, HEART: Regular rate and rhythm, S1, S2 with systolic murmur ABDOMEN: Soft, mildly distended, normoactive bowel sounds, EXTREMITIES: 2+ pulses, warm, well-perfused, + edema. NEUROLOGICAL: Cranial nerves II through XII grossly intact. Normal speech. SKIN: Warm, dry, normal turgor, no rashes or lesions noted Laboratory Results - last 24 hr 05/23/19 05/23/19 05/23/19 05:45 05:45 12:53 WBC 9.1 RBC 3.53 L Hgb 9.8 L Hct 29.9 L MCV 84.6 MCH 27.7 MCHC 32.8 RDW 15.3 Plt Count 290 MPV 6.9 L Absolute Neuts (auto) 7.5 Neutrophils % 82.4 Lymphocytes % 6.5 L Monocytes % 11.0 H Eosinophils % 0.0 Basophils % 0.1 Nucleated RBC % 0 Sodium 137 Potassium 4.0 Chloride 99 Carbon Dioxide 33 H Anion Gap 5 L BUN 73.4 H Creatinine 1.4 H Est GFR (CKD-EPI)AfAm 45.58 Est GFR (CKD-EPI)NonAf 39.33 POC Glucometer 89 Random Glucose 76 Calcium 8.1 L Phosphorus 3.0 Magnesium 1.8 Total Bilirubin 1.0 AST 11 L ALT 9 L Alkaline Phosphatase 139 H Total Protein 5.3 L Albumin 1.8 L ASSESSMENT/PLAN: Ms. Álvaro Prado is a 63y/o female with HFrEF (s/p ICD), a-fib, HTN, HLD, CAD (s /p CABG and PCI), s/p NSTEMI, non-IDDM2, COPD (5L NC), and hypothyroidism who presents from [facility] for LIANNA. Neuro alert and oriented CV #hypotension -pt appears improved on exam -dobutamine had to be increased yesterday back to 5mcg due to hypotension -hold Entresto, carvedilol and spironolactone -as patient needs dobutamine to maintain blood pressure, discussion had about evaluation at tertiary facility with dedicated heart failure team. Dr. Cage discussed with patient and she agreed to be transferred -Pt's daughter Paige Prado was equally informed by phone and she agrees with this plan as well. patient transfer to [facility] accepted by Dr. Palafox #a-fib/sinus tachycardia -carvedilol held - day 6 of amiodarone 400mg BID -Eliquis 5mg BID #acute on chronic HFrEF -severely reduced EF noted on echo in September 2018 -Lasix drip since blood pressure holding at 80 and above systolic -hold spironolactone -sodium control 2g daily #CAD s/p CABG and PCI -Plavix 75mg Renal -Cr 1.4, improved from 1.9 previously -Lasix drip per Dr. Lowry MSK #b/l heel pain -chronic -gabapentin 200mg TID Heme/Onc #leukocytosis -stablized -no fever, urine cx negative -monitor Endocrine #hypothyroidism -Synthroid 75mcg #NIDDM2 -BG normal/borderline during admission -monitor, will add SSI if needed DVT Ppx Eliquis FEN PO fluids monitor Cr sodium-controlled diet (2g daily) ATTENDING PHYSICIAN STATEMENT I saw and evaluated the patient. I reviewed the resident's note and discussed the case with the resident. I agree with the resident's findings and plan as documented. SUBJECTIVE: OBJECTIVE: ASSESSMENT AND PLAN:
[2019-05-24] MEDS ORDERED: AMIODARONE HCL 200 MG TABLET (FP) PO SCH (10:00)
== END 2019-05-23 13:52 | disposition short-term general hospital (02) | DRG 682 ==
LOC: JER 22:19 → JERBED 05-14 01:01 → J2W 05-14 01:53 → JICU 05-20 15:23
PROVIDERS: ADMIT Internal Medicine; ATTEND Internal Medicine
DX: N17.9 Acute kidney failure, unspecified (principal); I50.23 Acute on chronic systolic (congestive) heart failure; R57.0 Cardiogenic shock; I13.0 Hypertensive heart and chronic kidney disease with heart failure and stage 1 through stage 4 chronic kidney disease, or unspecified chronic kidney disease; I48.19 Other persistent atrial fibrillation; I48.92 Unspecified atrial flutter; I42.0 Dilated cardiomyopathy; E87.1 Hypo-osmolality and hyponatremia; J44.9 Chronic obstructive pulmonary disease, unspecified; F17.210 Nicotine dependence, cigarettes, uncomplicated; I95.9 Hypotension, unspecified; I25.119 Atherosclerotic heart disease of native coronary artery with unspecified angina pectoris; Z95.1 Presence of aortocoronary bypass graft; Z95.5 Presence of coronary angioplasty implant and graft; E78.5 Hyperlipidemia, unspecified; D72.829 Elevated white blood cell count, unspecified; E03.9 Hypothyroidism, unspecified; E87.70 Fluid overload, unspecified; E66.9 Obesity, unspecified; Z68.33 Body mass index [BMI] 33.0-33.9, adult; D64.9 Anemia, unspecified; I34.0 Nonrheumatic mitral (valve) insufficiency; E11.42 Type 2 diabetes mellitus with diabetic polyneuropathy; R00.0 Tachycardia, unspecified; R74.0 Nonspecific elevation of levels of transaminase and lactic acid dehydrogenase [LDH]
CPT/HCPCS: 36415; 71045-TC-FY; 76705-TC; 80048; 80053; 81003; 82962; 83735; 83880; 84100; 84443; 84484; 85025; 85027; 87086; 93005; 93010; 93970-TC; 99284-25; J0131; J1250

== ENCOUNTER 2019-07-09 21:40 | Inpatient (IN) | payer OTHER, BC ==
--- NOTE | 2019-07-09 22:14 | PDOC ---
History of Present Illness - General Chief Complaint: Injury Stated Complaint: FALL Time Seen by Provider: 07/09/19 22:13 - History of Present Illness Initial Comments: 64F 07/09/19 22:14 Past History - Past Medical History Allergies/Adverse Reactions: Allergies Allergy/AdvReac Type Severity Reaction Status Date / Time aspirin Allergy Mild Rash Verified 07/09/19 21:57 banana Allergy Hives Verified 07/09/19 21:57 tomato Allergy Verified 07/09/19 21:57 Home Medications: Ambulatory Orders Clopidogrel Bisulfate [Plavix -] 75 mg PO DAILY #30 tablet 08/02/17 Levothyroxine [Synthroid -] 75 mcg PO DAILY@0700 30 Days #30 tablet 08/02/17 Spironolactone 25 mg PO DAILY 12/09/18 Apixaban [Eliquis -] 5 mg PO BID #60 tablet 05/02/19 Furosemide [Lasix] 80 mg PO DAILY 05/14/19 Metoprolol Succinate [Toprol XL -] 100 mg PO DAILY 05/14/19 Sacubitril/Valsartan [Entresto 24 mg-26 mg Tablet] 1 each PO BID 05/14/19 Anemia: No Asthma: Yes Cancer: No Cardiac Disorders: Yes (AICD,MT 2013, stents, CABG) CVA: No COPD: Yes CHF: Yes Dementia: No Diabetes: Yes GI Disorders: Yes (PEG tube) Disorders: No HTN: Yes Hypercholesterolemia: Yes Kidney Stones: Yes Liver Disease: Yes Psychiatric Problems: Yes (depression.) Seizures: No Thyroid Disease: Yes (Hypo) - Surgical History Abdominal Surgery: Yes Appendectomy: No Cardiac Surgery: Yes (bypass,stent x2, CABG 2003, ICD/Pacer 7/15) Cholecystectomy: Yes (04/2016) Lung Surgery: (cabg 2003) Neurologic Surgery: No Orthopedic Surgery: Yes (Right THR) - Immunization History Immunization Up to Date: Yes - Psycho Social/Smoking Cessation Hx Smoking Status: No Smoking History: Never smoked Have you smoked in the past 12 months: No Number of Cigarettes Smoked Daily: 2 If you are a former smoker, when did you quit?: 3 months ago 'Breaking Loose' booklet given: 10/17/18 Hx Alcohol Use: Yes Drug/Substance Use Hx: Yes Substance Use Type: Alcohol Hx Substance Use Treatment: No *Physical Exam - Vital Signs Last Vital Signs Temp Pulse Resp BP Pulse Ox 97 F L 79 18 124/76 99 07/09/19 21:58 07/09/19 21:58 07/09/19 21:58 07/09/19 21:58 07/09/19 21:58 Discharge - Follow up/Referral Referrals: Bridger Quintero MD [Primary Care Provider] - - Patient Discharge Instructions - Post Discharge Activity
[2019-07-09] MEDS ORDERED: DIPHTH,PERTUSS(ACELL),TET 0.5 ML DISP.SYRIN IM ONE ×2 (22:50→23:20)
[2019-07-09] MEDS ORDERED: ACETAMINOPHEN 325 MG TABLET (FP) PO ONE (23:10)
[2019-07-09] MEDS ORDERED: ACETAMINOPHEN 325 MG TABLET (FP) ONE (23:19)
--- NOTE | 2019-07-10 00:26 | PDOC ---
History of Present Illness - General Chief Complaint: Injury Stated Complaint: FALL Time Seen by Provider: 07/09/19 22:13 History Source: Patient, Family Exam Limitations: No Limitations - History of Present Illness Initial Comments: 07/10/19 00:22 64-year-old female with history of CHF, status post ICD placement, A. fib on Eliquis, hypertension, hyperlipidemia, CAD, status post CABG, diabetes, COPD, and hypothyroidism, wheelchair-bound brought in by from a [facility] for atraumatic head injury with a left eyebrow laceration. Patient endorses that she was sitting in a wheelchair while being transported from a dining room when she fell out of a chair striking the floor with her face. Patient does not recall loss of consciousness and denies nausea, vomiting, severe headache, changes in visual acuity at this time. 07/10/19 00:26 Past History - Past Medical History Allergies/Adverse Reactions: Allergies Allergy/AdvReac Type Severity Reaction Status Date / Time aspirin Allergy Mild Rash Verified 07/09/19 21:57 banana Allergy Hives Verified 07/09/19 21:57 tomato Allergy Verified 07/09/19 21:57 Home Medications: Ambulatory Orders Clopidogrel Bisulfate [Plavix -] 75 mg PO DAILY #30 tablet 08/02/17 Levothyroxine [Synthroid -] 75 mcg PO DAILY@0700 30 Days #30 tablet 08/02/17 Spironolactone 25 mg PO DAILY 12/09/18 Apixaban [Eliquis -] 5 mg PO BID #60 tablet 05/02/19 Furosemide [Lasix] 80 mg PO DAILY 05/14/19 Metoprolol Succinate [Toprol XL -] 100 mg PO DAILY 05/14/19 Sacubitril/Valsartan [Entresto 24 mg-26 mg Tablet] 1 each PO BID 05/14/19 Anemia: No Asthma: Yes Cancer: No Cardiac Disorders: Yes (AICD,DE 2014, stents, CABG) CVA: No COPD: Yes CHF: Yes Dementia: No Diabetes: Yes GI Disorders: Yes (PEG tube) Disorders: No HTN: Yes Hypercholesterolemia: Yes Kidney Stones: Yes Liver Disease: Yes Psychiatric Problems: Yes (depression.) Seizures: No Thyroid Disease: Yes (Hypo) - Surgical History Abdominal Surgery: Yes Appendectomy: No Cardiac Surgery: Yes (bypass,stent x2, CABG 2003, ICD/Pacer 715) Cholecystectomy: Yes (04/2016) Lung Surgery: (cabg 2003) Neurologic Surgery: No Orthopedic Surgery: Yes (Right THR) - Immunization History Immunization Up to Date: Yes - Psycho Social/Smoking Cessation Hx Smoking Status: No Smoking History: Never smoked Have you smoked in the past 12 months: No Number of Cigarettes Smoked Daily: 2 If you are a former smoker, when did you quit?: 3 months ago 'Breaking Loose' booklet given: 10/17/18 Hx Alcohol Use: Yes Drug/Substance Use Hx: Yes Substance Use Type: Alcohol Hx Substance Use Treatment: No Review of Systems - Review of Systems Comments:: 07/10/19 00:23 REVIEW OF SYSTEMS CONSTITUTIONAL: No fever, no chills, no fatigue EYES: No visual changes ENT: No ear pain, no sore throat CARDIOVASCULAR: No chest pain, no palpitations RESPIRATORY: No cough, no SOB GI: No abdominal pain, no nausea, no vomiting, no constipation, no diarrhea GENITOURINARY: No dysuria, no frequency, no hematuria MUSKULOSKELETAL: No backpain, no joint pain, no myalgias SKIN: No rash, + eyebrow laceration NEURO: + headache/trauma *Physical Exam - Vital Signs Last Vital Signs Temp Pulse Resp BP Pulse Ox 97 F L 79 18 124/76 99 07/09/19 21:58 07/09/19 21:58 07/09/19 21:58 07/09/19 21:58 07/09/19 21:58 - Physical Exam 07/10/19 00:24 EXAMINATION CONSTITUTIONAL: awake, aelrt; gcs-15; well-nourished; in no apparent distress HEAD: Normocephalic; atraumatic EYES: PERRL; EOM intact; + 1cm irregular lacetation to left eyebrow without crepitus ENMT: External appears normal; normal oropharynx NECK: Supple; CARD: Normal S1, S2; no murmurs, rubs, or gallops RESP: Normal chest excursion with respiration; breath sounds clear and equal bilaterally; no wheezes, rhonchi, or rales ABD: Soft, non-distended; non-tender; no palpable organomegaly, no palpable hernias EXT: , + 2 piting edema b/l; passive ROM in all four extremities; non-tender to palpation; distal pulses intact SKIN: Warm, dry, no rash NEURO: No focal neurological deficiencies. ED Treatment Course - RADIOLOGY Radiology Studies Ordered: Category Date Time Status CERVICAL SPINE CT W/O CONTR [CT] Stat CT Scan 07/09/19 22:[address] WITHOUT CONTRAST [CT] Stat CT Scan 07/09/19 22:34 Ordered - Medications Given in the ED: ED Medications Discontinued Medications Generic Name Dose Route Start Last Admin Trade Name [place]il[place] PRN Reason Stop Dose Admin Acetaminophen 975 mg 07/09/19 23:10 07/09/19 23:25 Tylenol - PO 07/09/19 23:11 975 mg ONCE ONE Administration Diphtheria/Tetanus/Acell Pertussis 0.5 ml 07/09/19 22:50 07/09/19 23:25 Boostrix - IM 07/09/19 22:51 0.5 ml .ONCE ONE Administration Medical Decision Making - Medical Decision Making 07/10/19 00:26 Patient is a 64-year-old female with multiple comorbidities, history of A. fib on Eliquis who presents with atraumatic head injury with an eyebrow laceration. Will obtain CT of head and cervical spine to rule out traumatic injury. Will close laceration primarily. Will place in observation for repeat CT in 12 hours given patient is on a potent anticoagulant. Discharge - Discharge Information Problems reviewed: Yes Clinical Impression/Diagnosis: Laceration Head injury due to trauma Qualifiers: Encounter type: initial encounter Qualified Code(s): S09.90XA - Unspecified injury of head, initial encounter Condition: Fair - Admission Yes - Follow up/Referral Referrals: Bridger Quintero MD [Staff Physician] - - Patient Discharge Instructions - Post Discharge Activity
--- NOTE | 2019-07-10 02:57 | HP ---
CHIEF COMPLAINT: head trauma PCP: Dr. kumar HISTORY OF PRESENT ILLNESS: 64 y.o. F PMH HFrEF(s/p ICD placement), A-fib on eliquis, HTN, HLD, CAD (s/p CABG and PCI), s/p NSTEMI, DM type 2, COPD (on home 02 5L), hypothyroidism presenting from [facility] after falling out of a wheelchair. The patient says she was being wheeled in the wheelchair, her foot became stuck under the chair and subsequently fell forward. Denies LOC, no incontinence, no tongue biting; however the patient sustained L eyebrow laceration. Noted to have mild L periorbital swelling; no decrease in visual acuity. Denies MOREAU. ER course was notable for: (1) ct head- negative for acute bleeding or fracture (2) CT c/spine & XR pelvis- neg for acute fracture (3) Recent Travel: no PAST MEDICAL HISTORY: as per hpi PAST SURGICAL HISTORY: CABG 2003 x2 stents, ICD, cholecystectomy Social History: Smoking: denies Alcohol:denies Drugs: denies Allergies aspirin Allergy (Mild, Verified 07/09/19 21:57) Rash banana Allergy (Verified 07/09/19 21:57) Hives tomato Allergy (Verified 07/09/19 21:57) HOME MEDICATIONS: Home Medications Medication Instructions Recorded Clopidogrel Bisulfate [Plavix -] 75 mg PO DAILY #30 tablet 08/02/17 Levothyroxine [Synthroid -] 75 mcg PO DAILY@0700 30 Days #30 08/02/17 tablet Spironolactone 25 mg PO DAILY 12/09/18 Apixaban [Eliquis -] 5 mg PO BID #60 tablet 05/02/19 Furosemide [Lasix] 80 mg PO DAILY 05/14/19 Metoprolol Succinate [Toprol XL -] 100 mg PO DAILY 05/14/19 Sacubitril/Valsartan [Entresto 24 1 each PO BID 05/14/19 mg-26 mg Tablet] REVIEW OF SYSTEMS CONSTITUTIONAL: Absent: fever, chills, diaphoresis, generalized weakness, malaise, loss of appetite, weight change HEENT: eye pain Absent: rhinorrhea, nasal congestion, throat pain, throat swelling, difficulty swallowing, mouth swelling, ear pain, visual changes CARDIOVASCULAR: peripheral edema Absent: chest pain, syncope, palpitations, irregular heart rate, lightheadedness RESPIRATORY: Absent: cough, shortness of breath, dyspnea with exertion, orthopnea, wheezing, stridor, hemoptysis GASTROINTESTINAL: Absent: abdominal pain, abdominal distension, nausea, vomiting, diarrhea, constipation, melena, hematochezia GENITOURINARY: Absent: dysuria, frequency, urgency, hesitancy, hematuria, flank pain, genital pain MUSCULOSKELETAL: Absent: myalgia, arthralgia, joint swelling, back pain, neck pain SKIN: Absent: rash, itching, pallor HEMATOLOGIC/IMMUNOLOGIC: Absent: easy bleeding, easy bruising, lymphadenopathy, frequent infections ENDOCRINE: Absent: unexplained weight gain, unexplained weight loss, heat intolerance, cold intolerance NEUROLOGIC: Absent: headache, focal weakness or paresthesias, dizziness, unsteady gait, seizure, mental status changes, bladder or bowel incontinence PSYCHIATRIC: Absent: anxiety, depression, suicidal or homicidal ideation, hallucinations. PHYSICAL EXAMINATION Vital Signs - 24 hr 07/09/19 21:58 Temperature 97 F L Pulse Rate 79 Respiratory 18 Rate Blood Pressure 124/76 O2 Sat by Pulse 99 Oximetry (%) GENERAL: Awake, alert, and fully oriented, in no acute distress. HEENT: L eyebrow laceration; sutured, c/d/i, clean dressing in place LUNGS: Breath sounds equal, clear to auscultation bilaterally. No wheezes, and no crackles. No accessory muscle use. HEART: Regular rate and rhythm, normal S1 and S2 without murmur, rub or gallop. ABDOMEN: Soft, nontender, not distended, normoactive bowel sounds MUSCULOSKELETAL: Normal range of motion EXTREMITIES: 2+ pulses, warm, well-perfused. B/l 1+ pitting edema. NEUROLOGICAL: Cranial nerves II-XII intact. PSYCHIATRIC: Cooperative. Appropriate mood and affect. SKIN: L eyebrow lac; no other rashes or lesions noted ASSESSMENT/PLAN: 64 y.o. F PMH HFrEF(s/p ICD placement), A-fib on eliquis, HTN, HLD, CAD (s/p CABG and PCI), s/p NSTEMI, DM type 2, COPD (on home 02 5L), hypothyroidism presenting for mechanical fall. #Mechanical fall -sustained lac to L eyebrow; sutured -pain controlled w/ tylenol -given boostrix vax in ED -CT head & c-spine negative for acute bleeds/ fractures-- R frontal infarct seen on ct head,likely not acute. also c4-5 disc protrusion, unknown age -Pelvic XR shows no fractures -will repeat ct head 12 hrs after 1st scan to r/o bleeding -physical therapy -fall precautions #A-fib -holding eliquis in setting of fall -can resume after 2nd ct head r.o bleeding #HTN -may resume anti HTN meds -monitor vital signs #HLD -resume statin -no acute issues -low fat diet #CAD -continue home plavix #Diabetes mellitus -ISS -BGMs ACHS -hold home oral agents #COPD -saturating well, maintain oq >90% -continue home O2 5L NC #FEN -no fluids -replete lytes as needed -diabetic/ sodium controlled/ low fat diet #Dispo observation Visit type - Emergency Visit Emergency Visit: Yes ED Registration Date: 07/10/19 Care time: The patient presented to the Emergency Department on the above date and was hospitalized for further evaluation of their emergent condition. - New Patient This patient is new to me today: Yes Date on this admission: 07/10/19 - Critical Care Critical Care patient: No ATTENDING PHYSICIAN STATEMENT I saw and evaluated the patient. I reviewed the resident's note and discussed the case with the resident. I agree with the resident's findings and plan as documented. SUBJECTIVE: OBJECTIVE: ASSESSMENT AND PLAN:
--- NOTE | 2019-07-10 04:26 | PN ---
Teaching Attending Note Name of Resident: Genet Medina ATTENDING PHYSICIAN STATEMENT I saw and evaluated the patient. I reviewed the resident's note and discussed the case with the resident. I agree with the resident's findings and plan as documented. SUBJECTIVE: 64-year-old woman with multiple hospital admissions, multiple medical problems including congestive heart failure status post ICD placement, atrial fibrillation on Eliquis, hypertension, dyslipidemia, CAD status post CABG and PCI, diabetes mellitus type 2, COPD on home oxygen, hypothyroidism presenting from a [facility] after a fall on 07/09/2019 in the evening. There is no LOC, incontinence, tongue biting reported. Left eyebrow laceration was noted. Mild left periorbital swelling, no great decrease in visual acuity. OBJECTIVE: Last Vital Signs Temp Pulse Resp BP Pulse Ox 97 F L 79 18 124/76 99 07/09/19 21:58 07/09/19 21:58 07/09/19 21:58 07/09/19 21:58 07/09/19 21:58 Physical exam showed an elderly 64-year-old woman with a laceration over left eyebrow status post sutures with visible swelling. She is following commands and answering questions without any issues. Lungs are clear to auscultation bilaterally, chronic venous stasis changes in lower extremities with mild pedal edema. Abdomen was soft nontender, S1 plus, S2 plus normal rate and rhythm. Cervical spine CT without contrast showed degenerative changes, C4-5 disc protrusion indenting the canal. Head CT preliminary read was reviewed. Left forehead and periorbital scalp hematoma. Right frontal infarct of indeterminate age. No hemorrhage, no shift or herniation. ASSESSMENT AND PLAN: 64-year-old woman status post fall with head CT and C-spine CT preliminary reading is negative for any acute fractures or intracranial bleeding. Only left forehead scalp hematoma as described above, periorbital scalp swelling.Rest of physical exam was negative for any signs of trauma. [facility] Physical therapy evaluation Follow-up official reads of head CT and C-spine CT Send TSH #CHF Continue with spironolactone, Entresto, Toprol-XL, furosemide 80 mg p.o. daily #Atrial fibrillation on anticoagulation Continue with apixaban, however if patient continues to fall would reconsider anticoagulation in this case #CAD Continue with clopidogrel home dose Would update medications with pharmacy. Chest x-ray Laboratory tests were not performed in the emergency roommust obtain CBC, chemistry, PT, PTT MAE
[2019-07-10 05:03] LABS: HEMATOCRIT 32.1 % (32.4-45.2); HEMOGLOBIN 10.6 GM/dL (10.7-15.3); MCH 27.8 pg (25.7-33.7); MCHC 33.1 g/dl (32.0-36.0); MEAN CELL VOLUME 84.2 fl (80-96); MEAN PLT VOLUME 6.8 fl (7.5-11.1); PLATELET COUNT 335 K/MM3 (134-434); RBC 3.81 M/mm3 (3.60-5.2); RDW 17.7 % (11.6-15.6); WHITE BLOOD COUNT 7.9 K/mm3 (4.0-10.0)
[2019-07-10 05:39] LABS: BILIRUBIN,TOTAL 0.6 mg/dL (0.2-1); CALCIUM 8.8 mg/dL (8.5-10.1); CREATININE 1.1 mg/dL (0.55-1.3); POTASSIUM 3.8 mmol/L (3.5-5.1); TOT PROT 6.4 g/dl (6.4-8.2)
--- NOTE | 2019-07-10 06:22 | PDOC ---
*Physical Exam - Vital Signs Last Vital Signs Temp Pulse Resp BP Pulse Ox 97 F L 79 18 124/76 99 07/09/19 21:58 07/09/19 21:58 07/09/19 21:58 07/09/19 21:58 07/09/19 21:58 ED Treatment Course - LABORATORY CBC & Chemistry Diagram: 07/10/19 04:51 07/10/19 04:51 - RADIOLOGY Radiology Studies Ordered: Category Date Time Status PELVIS [RAD] Stat Radiology 07/10/19 00:01 Taken - Medications Given in the ED: ED Medications Discontinued Medications Generic Name Dose Route Start Last Admin Trade Name Freq PRN Reason Stop Dose Admin Acetaminophen 975 mg 07/09/19 23:10 07/09/19 23:25 Tylenol - PO 07/09/19 23:11 975 mg ONCE ONE Administration Diphtheria/Tetanus/Acell Pertussis 0.5 ml 07/09/19 22:50 07/09/19 23:25 Boostrix - IM 07/09/19 22:51 0.5 ml .ONCE ONE Administration Medical Decision Making - Medical Decision Making Procedure note Discharge - Discharge Information Problems reviewed: Yes Clinical Impression/Diagnosis: Laceration Head injury due to trauma Qualifiers: Encounter type: initial encounter Qualified Code(s): S09.90XA - Unspecified injury of head, initial encounter Condition: Fair - Follow up/Referral - Patient Discharge Instructions - Post Discharge Activity Procedures - Laceration/Wound Repair Upper Face Wound Length: to 2.5 cm Wound Explored: clean Wound's Depth, Shape: linear Irrigated w/ Saline: Yes Anesthesia: 1% Lidocaine Amount of Anesthetic (ccs): 2 Wound Debrided: minimal Wound Repaired With: Sutures (3) Suture Size/Type: 4:0 (monocryl) Number of Sutures: 3 Sterile Dressing Applied: Yes
[2019-07-10] MEDS ORDERED: CLOPIDOGREL BISULFATE 75 MG TABLET (FP) PO SCH (10:00)
[2019-07-10] MEDS: INSULIN SLIDING SCALE (NOVOLOG) 1 VIAL SQ SCH ×4 (10:05→23:26)
[2019-07-10 12:46] LABS: PHOSPHOROUS 3.4 mg/dL (2.5-4.9)
[2019-07-10 13:28] LABS: INR 1.8 (0.83-1.09); PROTHROMBIN TIME (PATIENT) 21.4 SEC (9.7-13.0)
[2019-07-10 13:31] LABS: ACTIVATED PTT 37.8 SECONDS (25.2-36.5)
[2019-07-10] MEDS ORDERED: PATIENT'S OWN MEDICATION (NON-FORMULARY) (Aa/Hydrolyzed Collagen, Whey [Lps Neutral Flavor PO SCH (15:15)
[2019-07-10] MEDS: AMIODARONE HCL 200 MG TABLET PO SCH (16:17)
[2019-07-10] MEDS ORDERED: CLOPIDOGREL BISULFATE 75 MG TABLET (FP) ONE (18:21)
[2019-07-10] MEDS: CLOPIDOGREL BISULFATE 75 MG TABLET (FP) PO SCH (18:34)
[2019-07-10] MEDS: TORSEMIDE 20 MG TABLET (FP) PO SCH (18:34)
[2019-07-10] MEDS ORDERED: ACETAMINOPHEN 325 MG TABLET (FP) ONE (20:29)
[2019-07-10] MEDS: GABAPENTIN 300 MG CAPSULE PO SCH (23:20)
[2019-07-10] MEDS: APIXABAN 5 MG TABLET PO SCH (23:20)
[2019-07-11] MEDS ORDERED: AMIODARONE HCL 200 MG TABLET PO ONE (00:35)
[2019-07-11] MEDS ORDERED: PT OWN MED DRAWER 7, Y5N ONE ×2 (01:00→14:14)
[2019-07-11] MEDS: ACETAMINOPHEN 325 MG TABLET (FP) PO PRN ×2 (02:04→11:48)
[2019-07-11] MEDS: LEVOTHYROXINE NA 75 MCG TABLET (FP) PO SCH (07:23)
[2019-07-11] MEDS: GABAPENTIN 300 MG CAPSULE PO SCH ×2 (07:24→14:17)
[2019-07-11] MEDS: TORSEMIDE 20 MG TABLET (FP) PO SCH ×2 (07:24→14:17)
[2019-07-11] MEDS: INSULIN SLIDING SCALE (NOVOLOG) 1 VIAL SQ SCH ×4 (07:24→22:55)
[2019-07-11] MEDS: APIXABAN 5 MG TABLET PO SCH (09:35)
[2019-07-11] MEDS: SODIUM CHLORIDE 1 GM TABLET PO SCH (09:35)
[2019-07-11] MEDS: AMIODARONE HCL 200 MG TABLET PO SCH (09:36)
[2019-07-11] MEDS: CLOPIDOGREL BISULFATE 75 MG TABLET (FP) PO SCH (09:36)
[2019-07-11] MEDS: CLOTRIMAZOLE 1% CREAM 15 GM TUBE TP SCH (09:37)
[2019-07-11] MEDS: AMINO ACIDS/PROTEIN HYDROLYS 30 ML LIQUID.PKT PO SCH (09:37)
--- NOTE | 2019-07-11 14:40 | PN ---
Progress Note, Physician Chief Complaint: s/p mechanical fall History of Present Illness: 64 year old efmale with PMH CHF, afib, dm2, htn, hld, cad, copd (on home oxygen?), ckd presented to the ER s/p fall, with large hematoma - Current Medication List Current Medications: Active Medications Acetaminophen (Tylenol -) 650 mg PO Q6H PRN PRN Reason: PAIN LEVEL 6-10 Last Admin: 07/11/19 11:48 Dose: 650 mg Amino Acids (Prosource No Carb Liquid Pkt) 30 ml PO DAILY [facility] Last Admin: 07/11/19 09:37 Dose: 30 ml Amiodarone HCl (Cordarone -) 200 mg PO DAILY [facility] Last Admin: 07/11/19 09:36 Dose: 200 mg Apixaban (Eliquis -) 5 mg PO BID [facility] Last Admin: 07/11/19 09:35 Dose: 5 mg Clopidogrel Bisulfate (Plavix -) 75 mg PO DAILY [facility] Last Admin: 07/11/19 09:36 Dose: 75 mg Clotrimazole (Lotrimin 1% Cream -) 1 applic TP DAILY [facility] Last Admin: 07/11/19 09:37 Dose: 1 applic Docusate Sodium (Colace -) 100 mg PO TID [facility] Gabapentin (Neurontin -) 300 mg PO TID [facility] Last Admin: 07/11/19 14:17 Dose: 300 mg Insulin Aspart (Novolog Vial Sliding Scale -) 1 vial SQ ACHS [facility]; Protocol Last Admin: 07/11/19 11:55 Dose: Not Given Levothyroxine Sodium (Synthroid -) 75 mcg PO DAILY@0700 [facility] Last Admin: 07/11/19 07:23 Dose: 75 mcg Sodium Chloride (Sodium Chloride Tablet -) 1 gm PO DAILY [facility] Last Admin: 07/11/19 09:35 Dose: 1 gm Torsemide (Demadex -) 20 mg PO BIDLASIX [facility] Last Admin: 07/11/19 14:17 Dose: 20 mg Tramadol HCl (Ultram -) 25 mg PO Q6H PRN PRN Reason: PAIN LEVEL 7 - 10 - Objective Vital Signs: Vital Signs Temperature 98.5 F 07/11/19 09:34 Pulse Rate 118 H 07/11/19 09:34 Respiratory Rate 20 07/11/19 09:34 Blood Pressure 117/63 07/11/19 09:34 O2 Sat by Pulse Oximetry (%) 94 L 07/11/19 07:00 Constitutional: Yes: No Distress Eyes: Yes: Other (left orbital hematoma) HENT: Yes: Atraumatic, Normocephalic Neck: Yes: Supple Cardiovascular: Yes: Regular Rate and Rhythm Respiratory: Yes: Regular Gastrointestinal: Yes: Distention Neurological: Yes: Alert, Other (aggitated) Labs: CBC, BMP 07/10/19 04:51 07/10/19 04:51 INR, PTT INR 1.80 (0.83-1.09) H 07/10/19 12:38 Problem List - Problems (1) Head injury due to trauma Assessment/Plan: [address] negative for bleed on anticoagulation needs to be seen by PT Code(s): S09.90XA - UNSPECIFIED INJURY OF HEAD, INITIAL ENCOUNTER Qualifiers: Encounter type: initial encounter Qualified Code(s): S09.90XA - Unspecified injury of head, initial encounter (2) Fall Assessment/Plan: PT eval Code(s): W19.XXXA - UNSPECIFIED FALL, INITIAL ENCOUNTER (3) Coronary artery disease Assessment/Plan: cont home meds Code(s): I25.10 - ATHSCL HEART DISEASE OF [place] CORONARY ARTERY W/O ANG PCTRS (4) Diabetes Assessment/Plan: cont home meds monitor sugar Code(s): E11.9 - TYPE 2 DIABETES MELLITUS WITHOUT COMPLICATIONS Qualifiers: Diabetes mellitus type: type 2 Diabetes mellitus intermediate insulin use: with assistant terminal manager use Diabetes mellitus complication status: with unspecified complications (5) Hyperlipidemia Assessment/Plan: cont home meds Code(s): E78.5 - HYPERLIPIDEMIA, UNSPECIFIED (6) Hypertension Assessment/Plan: cont home meds Code(s): I10 - ESSENTIAL (PRIMARY) HYPERTENSION (7) Hypothyroidism Assessment/Plan: cont home meds Code(s): E03.9 - HYPOTHYROIDISM, UNSPECIFIED
[2019-07-11] MEDS: traMADol HCL 50 MG TABLET PO PRN (18:31)
[2019-07-11] MEDS: DOCUSATE SODIUM 100 MG CAPSULE (FP) PO SCH (22:54)
[2019-07-12] MEDS: GABAPENTIN 300 MG CAPSULE PO SCH ×4 (00:15→21:25)
[2019-07-12] MEDS: traMADol HCL 50 MG TABLET PO PRN ×3 (00:15→15:10)
[2019-07-12] MEDS: APIXABAN 5 MG TABLET PO SCH ×3 (00:15→21:25)
--- NOTE | 2019-07-12 00:17 | CON.CARD ---
Consult Consult Specialty:: cardiology Reason for Consultation:: s/p fall; hx systolic CHF - History of Present Illness Chief Complaint: Pt alert; c/o pain at site of fall (face) History of Present Illness: 64 y.o. black woman with PMH HFrEF(severely reduced LVEF; s/p ICD placement), A- fib: was on metoprolol ER and eliquis; the former was changed to amiodarone on a recent admission), HTN, HLD, CAD, s/p NSTEMI (s/p CABG and PCI), DM type 2, COPD (on home 02 5L), hypothyroidism,anemia, overweight, presenting from [facility] after falling out of a wheelchair. The patient says she was being wheeled in the wheelchair, her foot became stuck under the chair and subsequently fell forward. Denies LOC, no incontinence, no tongue biting; however the patient sustained L eyebrow laceration. Noted to have mild L periorbital swelling; no decrease in visual acuity. Denies MOREAU. 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 Had PEG placed 11/03 after suffering vocal cord damage ( EMS intubation). PEG was subsequently removed. ) Hepatobiliary: Yes: Cirrhosis (cardiac cirrhosis), Cholecystitis (s/p lap choly 05/05) Renal/: Yes: Renal Calculi Reproductive: Yes: Postmenopausal ...: No Heme/Onc: Yes: Anemia Psych: Yes: Depression Musculoskeletal: Yes: Chronic low back pain, Osteoarthritis Endocrine: Yes: Hypothyroidism - Past Surgical History Past Surgical History: Yes: AICD, CABG, Cholecystectomy (05/05), Colonoscopy, Joint Replacement (right THR), Stent (X2) - Alcohol/Substance Use Hx Alcohol Use: No History of Substance Use: reports: None - Smoking History Smoking history: Current some day smoker Have you smoked in the past 12 months: Yes Aproximately how many cigarettes per day: 2 If you are a former smoker, when did you quit?: 3 months ago - Social History Usual Living Arrangement: Alone ADL: Independent 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 History of Recent Travel: No Home Medications - Allergies Allergies/Adverse Reactions: Allergies Allergy/AdvReac Type Severity Reaction Status Date / Time aspirin Allergy Mild Rash Verified 07/09/19 21:57 banana Allergy Hives Verified 07/09/19 21:57 tomato Allergy Verified 07/09/19 21:57 - Home Medications Home Medications: Ambulatory Orders Clopidogrel Bisulfate [Plavix -] 75 mg PO DAILY #30 tablet 08/02/17 Levothyroxine [Synthroid -] 75 mcg PO DAILY@0700 30 Days #30 tablet 08/02/17 Apixaban [Eliquis -] 5 mg PO BID #60 tablet 05/02/19 Aa/Hydrolyzed Collagen, Whey [Lps Neutral Flavor Liquid] 30 ml PO DAILY Amiodarone HCl 200 mg PO DAILY 07/10/19 Clotrimazole 1 applic TP DAILY 07/10/19 Gabapentin 300 mg PO TID 07/10/19 Sodium Chloride Tablet - 1 gm PO DAILY 07/10/19 Torsemide 20 mg PO BID 07/10/19 Family Medical History Family Hx Cardiac Disorders: Sister (CAD, CABG in her 50s) Family Hx Congestive Heart Failure: Sister Review of Systems - Review of Systems Constitutional: reports: Weakness Eyes: reports: No Symptoms HENT: reports: No Symptoms Neck: reports: No Symptoms Cardiovascular: reports: Edema Respiratory: reports: Exercise Intolerance, SOB on Exertion Gastrointestinal: reports: Bloating, Nausea Genitourinary: reports: No Symptoms Breasts: reports: No Symptoms Reported Musculoskeletal: reports: Decreased ROM, Muscle Weakness Neurological: reports: Weakness Psychiatric: reports: Anxiety, Depression - Risk Factors Known Risk Factors: Yes: Age, Hypercholesterolemia, Hypertension, Physical Inactivity, Prior OK /Emb Stroke, Race, Smoking, Other (systolic CHF; CABG) Vital Signs: Vital Signs Temperature 97.6 F 07/11/19 21:46 Pulse Rate 108 H 07/11/19 21:46 Respiratory Rate 18 07/11/19 21:46 Blood Pressure 103/61 07/11/19 21:46 O2 Sat by Pulse Oximetry (%) 95 07/11/19 15:00 Constitutional: Yes: Anxious Eyes: Yes: WNL HENT: Yes: WNL Neck: Yes: WNL Respiratory: Yes: SOB on Exertion Gastrointestinal: Yes: Soft, Distention. No: Tenderness Renal/: No: Anuria Cardiovascular: Yes: Tachycardia, Pulse Irregular JVD: No Carotid Bruit: No PMI: Displaced Heart Sounds: Yes: S1 (varies in intensity), Split S2 Murmur: Yes: Systolic Murmur, Grade 2 Musculoskeletal: Yes: Muscle Weakness Edema: Yes Edema: LLE: 1+, RLE: 1+ Peripheral Pulses WNL: No Peripheral Pulses: 1+ Left Doralis Pedis, 1+ Right Dorsalis Pedis Integumentary: Yes: Venous Stasis Changes Neurological: Yes: Alert, Oriented, Weakness Psychiatric: Yes: Alert, Oriented, Other - Other Data Labs, Other Data: CBC, BMP 07/10/19 04:51 07/10/19 04:51 INR, PTT INR 1.80 (0.83-1.09) H 07/10/19 12:38 Ejection Fraction %: LVEF < 40 % Imaging - Results Chest X-ray: Image Reviewed EKG: Image Reviewed Problem List - Problems (1) Head injury due to trauma Assessment/Plan: No facial fractures on CT facial bones. No acute intracranial pathology on CT head. Code(s): S09.90XA - UNSPECIFIED INJURY OF HEAD, INITIAL ENCOUNTER Qualifiers: Encounter type: initial encounter Qualified Code(s): S09.90XA - Unspecified injury of head, initial encounter (2) Laceration Code(s): NOC9783 - (3) AICD (automatic cardioverter/defibrillator) present Code(s): Z95.810 - PRESENCE OF AUTOMATIC (IMPLANTABLE) CARDIAC DEFIBRILLATOR (4) Acute on chronic renal failure Code(s): N17.9 - ACUTE KIDNEY FAILURE, UNSPECIFIED; N18.9 - CHRONIC KIDNEY DISEASE, UNSPECIFIED (5) Acute on chronic systolic and diastolic heart failure, NYHA class 3 Assessment/Plan: On amiodarone (plan to taper off, and restart metoprolol ER). Pt has been on lisinopril in the past. If unable to start Entresto due to cost, would restart lisinopril. Plan to start spironolactone if tolerates the above, once doses are optimized. F/u BUN/Cr, electrolytes, daily weight, Is and Os. Code(s): I50.43 - ACUTE ON CHRONIC COMBINED SYSTOLIC AND DIASTOLIC HRT FAIL (6) Anasarca Code(s): R60.1 - GENERALIZED EDEMA (7) Anemia Code(s): D64.9 - ANEMIA, UNSPECIFIED (8) Anxiety and depression Code(s): F41.9 - ANXIETY DISORDER, UNSPECIFIED; F32.9 - MAJOR DEPRESSIVE DISORDER, SINGLE EPISODE, UNSPECIFIED (9) Diverticulosis Code(s): K57.90 - DVRTCLOS OF INTEST, PART UNSP, W/O PERF OR ABSCESS W/O BLEED (10) Hx of CABG Code(s): Z95.1 - PRESENCE OF AORTOCORONARY BYPASS GRAFT (11) Overweight Code(s): E66.3 - OVERWEIGHT (12) PAF (paroxysmal atrial fibrillation) Code(s): I48.0 - PAROXYSMAL ATRIAL FIBRILLATION (13) Severe pulmonary arterial systolic hypertension Code(s): I27.21 - SECONDARY PULMONARY ARTERIAL HYPERTENSION (14) Cigarette nicotine dependence Code(s): F17.210 - NICOTINE DEPENDENCE, CIGARETTES, UNCOMPLICATED (15) Coronary artery disease Code(s): I25.10 - ATHSCL HEART DISEASE OF [place] CORONARY ARTERY W/O ANG PCTRS (16) Depression Code(s): F32.9 - MAJOR DEPRESSIVE DISORDER, SINGLE EPISODE, UNSPECIFIED (17) Diabetes Code(s): E11.9 - TYPE 2 DIABETES MELLITUS WITHOUT COMPLICATIONS Qualifiers: Diabetes mellitus type: type 2 Diabetes mellitus continuous churn buttermaker insulin use: with longterm use Diabetes mellitus complication status: with unspecified complications (18) Fatty liver Code(s): K76.0 - FATTY (CHANGE OF) LIVER, NOT ELSEWHERE CLASSIFIED (19) Hyperlipidemia Code(s): E78.5 - HYPERLIPIDEMIA, UNSPECIFIED (20) Lower extremity edema Code(s): R60.0 - LOCALIZED EDEMA (21) NSVT (nonsustained ventricular tachycardia) Code(s): I47.2 - VENTRICULAR TACHYCARDIA (22) Peripheral neuropathy Code(s): G62.9 - POLYNEUROPATHY, UNSPECIFIED Qualifiers: Peripheral neuropathy type: polyneuropathy, unspecified Qualified Code(s): G62.9 - Polyneuropathy, unspecified (23) Sleep apnea Code(s): G47.30 - SLEEP APNEA, UNSPECIFIED (24) Status post THR (total hip replacement) Code(s): Z96.649 - PRESENCE OF UNSPECIFIED ARTIFICIAL HIP JOINT (25) Abdominal distension Assessment/Plan: Abdominal Xray: no pneumoperitoneum or pneumotosis; + air in stomach, small bowel, colon. Code(s): R14.0 - ABDOMINAL DISTENSION (GASEOUS)
[2019-07-12] MEDS ORDERED: MELATONIN 5 MG TABLETS PO ONE (01:39)
[2019-07-12] MEDS: ACETAMINOPHEN 325 MG TABLET (FP) PO PRN ×2 (01:52→11:53)
[2019-07-12] MEDS: DOCUSATE SODIUM 100 MG CAPSULE (FP) PO SCH ×3 (05:07→21:25)
[2019-07-12] MEDS ORDERED: PT OWN MED DRAWER 7, Y5N ONE ×4 (06:42→21:15)
[2019-07-12] MEDS: LEVOTHYROXINE NA 75 MCG TABLET (FP) PO SCH (06:44)
[2019-07-12] MEDS: TORSEMIDE 20 MG TABLET (FP) PO SCH ×2 (06:47→15:11)
[2019-07-12] MEDS: INSULIN SLIDING SCALE (NOVOLOG) 1 VIAL SQ SCH ×4 (06:52→21:26)
[2019-07-12] MEDS: CLOPIDOGREL BISULFATE 75 MG TABLET (FP) PO SCH (11:53)
[2019-07-12] MEDS: SODIUM CHLORIDE 1 GM TABLET PO SCH (11:54)
[2019-07-12] MEDS: AMIODARONE HCL 200 MG TABLET PO SCH (11:54)
[2019-07-12] MEDS: CLOTRIMAZOLE 1% CREAM 15 GM TUBE TP SCH (11:55)
[2019-07-12] MEDS: AMINO ACIDS/PROTEIN HYDROLYS 30 ML LIQUID.PKT PO SCH (11:56)
--- NOTE | 2019-07-12 12:14 | PN ---
Progress Note, Physician Chief Complaint: Mechanical Fall L Periorbital Edema L Eyebrow Laceration History of Present Illness: Previous noted and events reviewed awake and alert NAD healing hematoma and edema to L periorbital area sutures noted to L eyebrow FUA done yesterday 2/2 distention showed possible atelectasis or infiltrate, CXR stat ordered to R/O infiltrate - Current Medication List Current Medications: Active Medications Acetaminophen (Tylenol -) 650 mg PO Q6H PRN PRN Reason: PAIN LEVEL 1-3 Last Admin: 07/12/19 11:53 Dose: 650 mg Amino Acids (Prosource No Carb Liquid Pkt) 30 ml PO DAILY [facility] Last Admin: 07/12/19 11:56 Dose: 30 ml Amiodarone HCl (Cordarone -) 200 mg PO DAILY [facility] Last Admin: 07/12/19 11:54 Dose: 200 mg Apixaban (Eliquis -) 5 mg PO BID [facility] Last Admin: 07/12/19 11:54 Dose: 5 mg Clopidogrel Bisulfate (Plavix -) 75 mg PO DAILY [facility] Last Admin: 07/12/19 11:53 Dose: 75 mg Clotrimazole (Lotrimin 1% Cream -) 1 applic TP DAILY [facility] Last Admin: 07/12/19 11:55 Dose: 1 applic Docusate Sodium (Colace -) 100 mg PO TID [facility] Last Admin: 07/12/19 05:07 Dose: Not Given Gabapentin (Neurontin -) 300 mg PO TID [facility] Last Admin: 07/12/19 06:43 Dose: 300 mg Insulin Aspart (Novolog Vial Sliding Scale -) 1 vial SQ ACHS [facility]; Protocol Last Admin: 07/12/19 12:06 Dose: Not Given Levothyroxine Sodium (Synthroid -) 75 mcg PO DAILY@0700 [facility] Last Admin: 07/12/19 06:44 Dose: 75 mcg Sodium Chloride (Sodium Chloride Tablet -) 1 gm PO DAILY [facility] Last Admin: 07/12/19 11:54 Dose: 1 gm Torsemide (Demadex -) 20 mg PO BIDLASIX [facility] Last Admin: 07/12/19 06:47 Dose: 20 mg Tramadol HCl (Ultram -) 25 mg PO Q6H PRN PRN Reason: PAIN LEVEL 4-6 Last Admin: 07/12/19 06:43 Dose: 25 mg - Objective Vital Signs: Vital Signs Temperature 97.7 F 07/12/19 10:51 Pulse Rate 66 07/12/19 10:51 Respiratory Rate 18 07/12/19 10:51 Blood Pressure 116/67 07/12/19 10:51 O2 Sat by Pulse Oximetry (%) 95 07/11/19 23:00 Constitutional: Yes: No Distress, Anxious Eyes: Yes: Conjunctiva Clear, Other (L periorbital edema) HENT: Yes: Other (L periorbital edema) Cardiovascular: Yes: Regular Rate and Rhythm Respiratory: Yes: Regular, Diminished Gastrointestinal: Yes: Normal Bowel Sounds, Soft, Distention Genitourinary: Yes: Incontinence Musculoskeletal: Yes: Muscle Weakness Extremities: Yes: WNL Edema: No Neurological: Yes: Alert, Confusion Psychiatric: Yes: Alert Labs: CBC, BMP 07/10/19 04:51 07/10/19 04:51 INR, PTT INR 1.80 (0.83-1.09) H 07/10/19 12:38 Problem List - Problems (1) Abdominal distension Assessment/Plan: FUA shows some air in stomach and air in small bowel loops, some air in colon with some stool, pneumoperitoneum and pneumatosis not seen Problems reviewed: Yes Code(s): R14.0 - ABDOMINAL DISTENSION (GASEOUS) (2) Head injury due to trauma Assessment/Plan: Neuro checks Head CT scan shows no evidence of acute intracranial hemorrhage, edema, midline shift, mass effect, or skull fracture repeat Head CT scan shows no significant interval change, focal encephalomalacia in right frontal lobe anteriorly, no intracranial pathology identified Facial CT scan show maxillofacial and orbital structures show no fracture, left periorbital soft tissue edema, no intraorbital soft tissue edema or hematoma, no ocular globe injury Code(s): S09.90XA - UNSPECIFIED INJURY OF HEAD, INITIAL ENCOUNTER Qualifiers: Encounter type: initial encounter Qualified Code(s): S09.90XA - Unspecified injury of head, initial encounter (3) Laceration Assessment/Plan: Sutures in place Code(s): [id number] - (4) Anemia Assessment/Plan: Hg 10.6 monitor Hg daily transfuse for Hg <8.0 Code(s): D64.9 - ANEMIA, UNSPECIFIED (5) Fall Assessment/Plan: Fall precaution PT Code(s): W19.XXXA - UNSPECIFIED FALL, INITIAL ENCOUNTER (6) PAF (paroxysmal atrial fibrillation) Assessment/Plan: Apaxiban Amiodarone Code(s): I48.0 - PAROXYSMAL ATRIAL FIBRILLATION (7) Chronic systolic congestive heart failure Assessment/Plan: Torsemide 1L fluid restriction strict I&Os daily weight low Na diet Code(s): I50.22 - CHRONIC SYSTOLIC (CONGESTIVE) HEART FAILURE (8) Coronary artery disease Assessment/Plan: Plavix Code(s): I25.10 - ATHSCL HEART DISEASE OF [place] CORONARY ARTERY W/O ANG PCTRS (9) Diabetes Assessment/Plan: BGM ACHS ISS Code(s): E11.9 - TYPE 2 DIABETES MELLITUS WITHOUT COMPLICATIONS Qualifiers: Diabetes mellitus type: type 2 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
--- NOTE | 2019-07-12 18:00 | PN ---
Progress Note, Physician Chief Complaint: Events noted Post fall resulting in ecchymosis of orbital area with swelling History of Present Illness: Patient was seen and examined. Arousable. Chart was reviewed Coverage for Dr. Dick Cage Denies chest pain or SOB - Current Medication List Current Medications: Active Medications Acetaminophen (Tylenol -) 650 mg PO Q6H PRN PRN Reason: PAIN LEVEL 1-3 Last Admin: 07/12/19 11:53 Dose: 650 mg Amino Acids (Prosource No Carb Liquid Pkt) [address] [facility] Last Admin: 07/12/19 11:56 Dose: 30 ml Amiodarone HCl (Cordarone -) [address] [facility] Last Admin: 07/12/19 11:54 Dose: 200 mg Apixaban (Eliquis -) [address] [facility] Last Admin: 07/12/19 11:54 Dose: 5 mg Clopidogrel Bisulfate (Plavix -) [address] [facility] Last Admin: 07/12/19 11:53 Dose: 75 mg Clotrimazole (Lotrimin 1% Cream -) [address] [facility] Last Admin: 07/12/19 11:55 Dose: 1 applic Docusate Sodium (Colace -) [address] [facility] Last Admin: 07/12/19 15:11 Dose: 100 mg Gabapentin (Neurontin -) [address] [facility] Last Admin: 07/12/19 15:11 Dose: 300 mg Insulin Aspart (Novolog Vial Sliding Scale -) [address] [facility]; Protocol Last Admin: 07/12/19 17:18 Dose: Not Given Levothyroxine Sodium (Synthroid -) 75 mcg PO DAILY@0700 [facility] Last Admin: 07/12/19 06:44 Dose: 75 mcg Sodium Chloride (Sodium Chloride Tablet -) [address] [facility] Last Admin: 07/12/19 11:54 Dose: 1 gm Torsemide (Demadex -) [address] [facility] Last Admin: 07/12/19 15:11 Dose: 20 mg Tramadol HCl (Ultram -) 25 mg PO Q6H PRN PRN Reason: PAIN LEVEL 4-6 Last Admin: 07/12/19 15:10 Dose: 25 mg - Objective Vital Signs: Vital Signs Temperature 97.4 F L 07/12/19 15:37 Pulse Rate 66 07/12/19 15:37 Respiratory Rate 18 07/12/19 15:37 Blood Pressure 115/66 07/12/19 15:37 O2 Sat by Pulse Oximetry (%) 95 07/12/19 12:00 Cardiovascular: Yes: Pulse Irregular, Murmur (2/6 SM), S1, S2 Respiratory: Yes: Diminished Gastrointestinal: Yes: Normal Bowel Sounds, Soft. No: Tenderness Edema: Yes Edema: LLE: 1+, RLE: 1+ Labs: CBC, BMP 07/10/19 04:51 07/10/19 04:51 INR, PTT INR 1.80 (0.83-1.09) H 07/10/19 12:38 Problem List - Problems (1) Head injury due to trauma Code(s): S09.90XA - UNSPECIFIED INJURY OF HEAD, INITIAL ENCOUNTER Qualifiers: Encounter type: initial encounter Qualified Code(s): S09.90XA - Unspecified injury of head, initial encounter (2) Laceration Code(s): [id number] - (3) AICD (automatic cardioverter/defibrillator) present Code(s): Z95.810 - PRESENCE OF AUTOMATIC (IMPLANTABLE) CARDIAC DEFIBRILLATOR (4) Acute on chronic renal failure Code(s): N17.9 - ACUTE KIDNEY FAILURE, UNSPECIFIED; N18.9 - CHRONIC KIDNEY DISEASE, UNSPECIFIED (5) Acute on chronic systolic and diastolic heart failure, NYHA class 3 Code(s): I50.43 - ACUTE ON CHRONIC COMBINED SYSTOLIC AND DIASTOLIC HRT FAIL (6) Anemia Code(s): D64.9 - ANEMIA, UNSPECIFIED (7) Anxiety and depression Code(s): F41.9 - ANXIETY DISORDER, UNSPECIFIED; F32.9 - MAJOR DEPRESSIVE DISORDER, SINGLE EPISODE, UNSPECIFIED (8) Hx of CABG Code(s): Z95.1 - PRESENCE OF AORTOCORONARY BYPASS GRAFT (9) PAF (paroxysmal atrial fibrillation) Code(s): I48.0 - PAROXYSMAL ATRIAL FIBRILLATION (10) Severe pulmonary arterial systolic hypertension Code(s): I27.21 - SECONDARY PULMONARY ARTERIAL HYPERTENSION (11) Coronary artery disease Code(s): I25.10 - ATHSCL HEART DISEASE OF [place] CORONARY ARTERY W/O ANG PCTRS (12) Hyperlipidemia Code(s): E78.5 - HYPERLIPIDEMIA, UNSPECIFIED Qualifiers: Hyperlipidemia type: pure hypercholesterolemia Qualified Code(s): E78.00 - Pure hypercholesterolemia, unspecified; E78.0 - Pure hypercholesterolemia (13) Hypertension Code(s): I10 - ESSENTIAL (PRIMARY) HYPERTENSION Qualifiers: Hypertension type: essential hypertension Qualified Code(s): I10 - Essential (primary) hypertension (14) NSVT (nonsustained ventricular tachycardia) Code(s): I47.2 - VENTRICULAR TACHYCARDIA (15) Sleep apnea Code(s): G47.30 - SLEEP APNEA, UNSPECIFIED Assessment/Plan 1. Post fall resulting in facial/orbital laceration and ecchymosis and swelling 2. Acute on chronic systolic and diastolic heart failure class 3 NYHA classification heart failure (HFrEF) 3. Post AICD implant 4. Atrial fibrillation (paroxysmal) 5. HTN 6. Hypercholesterolemia 7. CAD history of NSTEMI, CABG, PCI 8. DM 9. Acute on CKD 10. Anemia 11. COPD and JORDY PLAN: 1. Currently on Amiodarone 200 mg QD 2. If BP and renal function tolerates and cost, consider Entresto start at 24/ 26 mg BID otherwise other option is to use ACEI or ARB 3. If BP tolerates, consider beta carrie therapy with Carvedilol 3.125 mg BID 4. Continue Demadex 20 mg BID and monitor renal function and electrolytes 5. Continue Eliquis 5 mg BID 6. Wound care and monitor mental status Further plans are to follow Dr. Cage to resume care on Sunday Narayan Salinas MD
[2019-07-13] MEDS: LEVOTHYROXINE NA 75 MCG TABLET (FP) PO SCH (06:04)
[2019-07-13] MEDS: GABAPENTIN 300 MG CAPSULE PO SCH (06:04)
[2019-07-13] MEDS: DOCUSATE SODIUM 100 MG CAPSULE (FP) PO SCH ×3 (06:04→21:18)
[2019-07-13] MEDS: TORSEMIDE 20 MG TABLET (FP) PO SCH ×2 (06:06→15:54)
[2019-07-13] MEDS: INSULIN SLIDING SCALE (NOVOLOG) 1 VIAL SQ SCH ×4 (06:06→22:11)
[2019-07-13 08:30] LABS: HEMOGLOBIN 10.9 GM/dL (10.7-15.3); MCH 27.2 pg (25.7-33.7); MCHC 32.1 g/dl (32.0-36.0); MEAN CELL VOLUME 84.7 fl (80-96); MEAN PLT VOLUME 7.4 fl (7.5-11.1); PLATELET COUNT 360 K/MM3 (134-434); RBC 4.02 M/mm3 (3.60-5.2); RDW 17.9 % (11.6-15.6)
--- NOTE | 2019-07-13 09:00 | PN ---
Progress Note, Physician Chief Complaint: Events noted Post fall resulting in ecchymosis of orbital area with swelling More lethargic today History of Present Illness: Patient was seen and examined. Lethargic. Chart was reviewed Coverage for Dr. Dick Cage Noted swelling of left breast and right arm. Vitals reported tachycardia - Current Medication List Current Medications: Active Medications Acetaminophen (Tylenol -) 650 mg PO Q6H PRN PRN Reason: PAIN LEVEL 1-3 Last Admin: 07/12/19 11:53 Dose: 650 mg Amino Acids (Prosource No Carb Liquid Pkt) 30 ml PO DAILY [facility] Last Admin: 07/12/19 11:56 Dose: 30 ml Amiodarone HCl (Cordarone -) 200 mg PO DAILY [facility] Last Admin: 07/12/19 11:54 Dose: 200 mg Apixaban (Eliquis -) 5 mg PO BID [facility] Last Admin: 07/12/19 21:25 Dose: 5 mg Clopidogrel Bisulfate (Plavix -) 75 mg PO DAILY [facility] Last Admin: 07/12/19 11:53 Dose: 75 mg Clotrimazole (Lotrimin 1% Cream -) 1 applic TP DAILY [facility] Last Admin: 07/12/19 11:55 Dose: 1 applic Docusate Sodium (Colace -) 100 mg PO TID [facility] Last Admin: 07/13/19 06:04 Dose: 100 mg Gabapentin (Neurontin -) 300 mg PO TID [facility] Last Admin: 07/13/19 06:04 Dose: 300 mg Insulin Aspart (Novolog Vial Sliding Scale -) 1 vial SQ ACHS [facility]; Protocol Last Admin: 07/13/19 06:06 Dose: Not Given Levothyroxine Sodium (Synthroid -) 75 mcg PO DAILY@0700 [facility] Last Admin: 07/13/19 06:04 Dose: 75 mcg Sodium Chloride (Sodium Chloride Tablet -) 1 gm PO DAILY [facility] Last Admin: 07/12/19 11:54 Dose: 1 gm Torsemide (Demadex -) 20 mg PO BIDLASIX [facility] Last Admin: 07/13/19 06:06 Dose: 20 mg Tramadol HCl (Ultram -) 25 mg PO Q6H PRN PRN Reason: PAIN LEVEL 4-6 Last Admin: 07/12/19 15:10 Dose: 25 mg - Objective Vital Signs: Vital Signs Temperature 97.5 F L 07/13/19 06:00 Pulse Rate 123 H 07/13/19 06:00 Respiratory Rate 18 07/13/19 06:00 Blood Pressure 140/64 07/13/19 06:00 O2 Sat by Pulse Oximetry (%) 92 L 07/12/19 20:00 Neck: Yes: Supple Cardiovascular: Yes: S1, S2 Respiratory: Yes: Diminished Gastrointestinal: Yes: Normal Bowel Sounds, Soft. No: Tenderness Breast(s): Yes: Other (Enlarged left breast) Extremities: Yes: Other (right arm swelling) Edema: Yes Edema: LLE: Trace, RLE: Trace Labs: CBC, BMP 07/13/19 07:30 INR, PTT INR 1.80 (0.83-1.09) H 07/10/19 12:38 Problem List - Problems (1) Head injury due to trauma Code(s): S09.90XA - UNSPECIFIED INJURY OF HEAD, INITIAL ENCOUNTER Qualifiers: Encounter type: initial encounter Qualified Code(s): S09.90XA - Unspecified injury of head, initial encounter (2) Laceration Code(s): [id number] - (3) AICD (automatic cardioverter/defibrillator) present Code(s): Z95.810 - PRESENCE OF AUTOMATIC (IMPLANTABLE) CARDIAC DEFIBRILLATOR (4) Acute on chronic renal failure Code(s): N17.9 - ACUTE KIDNEY FAILURE, UNSPECIFIED; N18.9 - CHRONIC KIDNEY DISEASE, UNSPECIFIED (5) Acute on chronic systolic and diastolic heart failure, NYHA class 3 Code(s): I50.43 - ACUTE ON CHRONIC COMBINED SYSTOLIC AND DIASTOLIC HRT FAIL (6) Anemia Code(s): D64.9 - ANEMIA, UNSPECIFIED (7) Anxiety and depression Code(s): F41.9 - ANXIETY DISORDER, UNSPECIFIED; F32.9 - MAJOR DEPRESSIVE DISORDER, SINGLE EPISODE, UNSPECIFIED (8) Hx of CABG Code(s): Z95.1 - PRESENCE OF AORTOCORONARY BYPASS GRAFT (9) PAF (paroxysmal atrial fibrillation) Code(s): I48.0 - PAROXYSMAL ATRIAL FIBRILLATION (10) Severe pulmonary arterial systolic hypertension Code(s): I27.21 - SECONDARY PULMONARY ARTERIAL HYPERTENSION (11) Coronary artery disease Code(s): I25.10 - ATHSCL HEART DISEASE OF [place] CORONARY ARTERY W/O ANG PCTRS (12) Hyperlipidemia Code(s): E78.5 - HYPERLIPIDEMIA, UNSPECIFIED Qualifiers: Hyperlipidemia type: pure hypercholesterolemia Qualified Code(s): E78.00 - Pure hypercholesterolemia, unspecified; E78.0 - Pure hypercholesterolemia (13) Hypertension Code(s): I10 - ESSENTIAL (PRIMARY) HYPERTENSION Qualifiers: Hypertension type: essential hypertension Qualified Code(s): I10 - Essential (primary) hypertension (14) NSVT (nonsustained ventricular tachycardia) Code(s): I47.2 - VENTRICULAR TACHYCARDIA (15) Sleep apnea Code(s): G47.30 - SLEEP APNEA, UNSPECIFIED Assessment/Plan 1. Post fall resulting in facial/orbital laceration and ecchymosis and swelling , currently lethargy with left breast swelling ? hematoma and right arm swelling ? etiology 2. Acute on chronic systolic and diastolic heart failure class 3 NYHA classification heart failure (HFrEF) 3. Post AICD implant 4. Atrial fibrillation with RVR 5. HTN 6. Hypercholesterolemia 7. CAD history of NSTEMI, CABG, PCI 8. DM 9. Acute on CKD 10. Anemia 11. COPD and JORDY PLAN: 1. Consider repeat head CT for mental status change. Consider Neurology evaluation. May need brain MRI if CT negative 2. Either ultrasound of the breast or CT scan to rule out hematoma 3. Ultrasound of right arm 4. Consider transfer to ICU monitored setting 5. Currently on Amiodarone 200 mg QD 6. If BP and renal function tolerates, consider Entresto start at 24/26 mg BID otherwise other option is to use ACEI or ARB. Currently with low blood pressure limits use 7. Consider beta carrie therapy with Carvedilol 3.125 mg BID in the near future , but as stated above, has low blood pressure this morning, thus limiting its use 8. Demadex 20 mg BID and monitor renal function and electrolytes, but may need to be held until further instruction 9. Hold Eliquis until CT head is done. Hold Plavix also until further instruction 10. ECG Further plans are to follow. Discussed with primary care team. Guarded Dr. Cage to resume care on Sunday Narayan Salinas MD
[2019-07-13 09:02] LABS: ALBUMIN 2.2 g/dl (3.4-5.0); BLOOD UREA NITROGEN 65.9 mg/dL (7-18); CALCIUM 9.1 mg/dL (8.5-10.1); CREATININE 2.4 mg/dL (0.55-1.3); POTASSIUM 5.1 mmol/L (3.5-5.1); TOT PROT 6.5 g/dl (6.4-8.2)
--- NOTE | 2019-07-13 09:35 | PN ---
Progress Note, Physician Chief Complaint: Mechanical Fall L Periorbital Edema L Eyebrow Laceration History of Present Illness: Previous noted and events reviewed RN notify me that patient is more lethargic than usual. Patient baseline is alert, awake and yelling normally. On exam patient noted to be lethargic but responsive to verbal and tactile stimuli. Rapid Response called at 9:06am due to acute change in mental status. Head CT scan ordered STAT. EKG ordered for tachycardia. Labs show leukocytosis of WBC 18.0, she is currently afebrile. On examination patient noted with swelling and firmness to L breast and edema to RUE. Patient will be transferred to [facility] for closer monitoring. - Current Medication List Current Medications: Active Medications Acetaminophen (Tylenol -) 650 mg PO Q6H PRN PRN Reason: PAIN LEVEL 1-3 Last Admin: 07/12/19 11:53 Dose: 650 mg Amino Acids (Prosource No Carb Liquid Pkt) 30 ml PO DAILY [facility] Last Admin: 07/12/19 11:56 Dose: 30 ml Amiodarone HCl (Cordarone -) 200 mg PO DAILY [facility] Last Admin: 07/12/19 11:54 Dose: 200 mg Apixaban (Eliquis -) 5 mg PO BID [facility] Last Admin: 07/12/19 21:25 Dose: 5 mg Clopidogrel Bisulfate (Plavix -) 75 mg PO DAILY [facility] Last Admin: 07/12/19 11:53 Dose: 75 mg Clotrimazole (Lotrimin 1% Cream -) 1 applic TP DAILY [facility] Last Admin: 07/12/19 11:55 Dose: 1 applic Docusate Sodium (Colace -) 100 mg PO TID [facility] Last Admin: 07/13/19 06:04 Dose: 100 mg Gabapentin (Neurontin -) 300 mg PO TID [facility] Last Admin: 07/13/19 06:04 Dose: 300 mg Insulin Aspart (Novolog Vial Sliding Scale -) 1 vial SQ ACHS [facility]; Protocol Last Admin: 07/13/19 06:06 Dose: Not Given Levothyroxine Sodium (Synthroid -) 75 mcg PO DAILY@0700 [facility] Last Admin: 07/13/19 06:04 Dose: 75 mcg Sodium Chloride (Sodium Chloride Tablet -) 1 gm PO DAILY [facility] Last Admin: 07/12/19 11:54 Dose: 1 gm Torsemide (Demadex -) 20 mg PO BIDLASIX [facility] Last Admin: 07/13/19 06:06 Dose: 20 mg Tramadol HCl (Ultram -) 25 mg PO Q6H PRN PRN Reason: PAIN LEVEL 4-6 Last Admin: 07/12/19 15:10 Dose: 25 mg - Objective Vital Signs: Vital Signs Temperature 98.6 F 07/13/19 08:55 Pulse Rate 120 H 07/13/19 08:55 Respiratory Rate 16 07/13/19 08:55 Blood Pressure 106/72 07/13/19 08:55 O2 Sat by Pulse Oximetry (%) 92 L 07/12/19 20:00 Constitutional: Yes: No Distress, Calm Eyes: Yes: Conjunctiva Clear HENT: Yes: Other (L periorbital edema) Cardiovascular: Yes: Tachycardia Respiratory: Yes: Regular, Diminished, On Nasal O2 Gastrointestinal: Yes: Normal Bowel Sounds, Soft, Distention Genitourinary: Yes: Incontinence Breast(s): Yes: Left (firmness and edema) Musculoskeletal: Yes: Muscle Weakness Extremities: Yes: WNL Edema: Yes (RUE) Wound/Incision: Yes: Sutures Intact (L eyebrow) Neurological: Yes: Lethargy Labs: CBC, BMP 07/13/19 07:30 07/13/19 07:30 INR, PTT INR 1.80 (0.83-1.09) H 07/10/19 12:38 Problem List - Problems (1) Abdominal distension Assessment/Plan: FUA shows some air in stomach and air in small bowel loops, some air in colon with some stool, pneumoperitoneum and pneumatosis not seen GI consult Code(s): R14.0 - ABDOMINAL DISTENSION (GASEOUS) (2) Head injury due to trauma Assessment/Plan: Neuro checks Head CT scan shows no evidence of acute intracranial hemorrhage, edema, midline shift, mass effect, or skull fracture repeat Head CT scan shows no significant interval change, focal encephalomalacia in right frontal lobe anteriorly, no intracranial pathology identified Facial CT scan show maxillofacial and orbital structures show no fracture, left periorbital soft tissue edema, no intraorbital soft tissue edema or hematoma, no ocular globe injury Code(s): S09.90XA - UNSPECIFIED INJURY OF HEAD, INITIAL ENCOUNTER Qualifiers: Encounter type: initial encounter Qualified Code(s): S09.90XA - Unspecified injury of head, initial encounter (3) Laceration Assessment/Plan: Sutures in place Code(s): [id number] - (4) Anemia Assessment/Plan: Hg 10.9 monitor Hg daily transfuse for Hg <8.0 Code(s): D64.9 - ANEMIA, UNSPECIFIED (5) Fall Assessment/Plan: Fall precaution PT Code(s): W19.XXXA - UNSPECIFIED FALL, INITIAL ENCOUNTER (6) PAF (paroxysmal atrial fibrillation) Assessment/Plan: Apaxiban on hold Amiodarone Code(s): I48.0 - PAROXYSMAL ATRIAL FIBRILLATION (7) Chronic systolic congestive heart failure Assessment/Plan: Torsemide 1L fluid restriction strict I&Os daily weight low Na diet Code(s): I50.22 - CHRONIC SYSTOLIC (CONGESTIVE) HEART FAILURE (8) Coronary artery disease Assessment/Plan: Plavix on hold until after Head CT scan Code(s): I25.10 - ATHSCL HEART DISEASE OF [place] CORONARY ARTERY W/O ANG PCTRS (9) Diabetes Assessment/Plan: [facility] Code(s): E11.9 - TYPE 2 DIABETES MELLITUS WITHOUT COMPLICATIONS Qualifiers: Diabetes mellitus type: type 2 Diabetes mellitus chcf insulin use: with chcf use Diabetes mellitus complication status: with unspecified complications (10) Hypertension Assessment/Plan: monitor BP Code(s): I10 - ESSENTIAL (PRIMARY) HYPERTENSION Qualifiers: Hypertension type: essential hypertension Qualified Code(s): I10 - Essential (primary) hypertension (11) Hypothyroidism Assessment/Plan: Levothyroxine Code(s): E03.9 - HYPOTHYROIDISM, UNSPECIFIED (12) Lethargy Assessment/Plan: Headt CT scan STAT Neurochecks q4h transfer to Tele for further monitoring Neurology consult for change in mental status CVA vs Toxic metabolic encephalopathy Code(s): R53.83 - OTHER FATIGUE (13) Leukocytosis Assessment/Plan: WBC 18.0 ID consult afebrile BC and UC ordered Lactic Acid ordered CXR shows enlarged heart, sternal sutures, pacemaker and central congestive changes , discrete unfiltrate is not seen Code(s): D72.829 - ELEVATED WHITE BLOOD CELL COUNT, UNSPECIFIED (14) ARF (acute renal failure) Assessment/Plan: Renal Consult BUN/Cr 65.9/2.4 monitor renal function daily Code(s): N17.9 - ACUTE KIDNEY FAILURE, UNSPECIFIED (15) Transaminitis Assessment/Plan: GI Consult Abdominal US AST 315, ALT 176, Alk Phos 177 Code(s): R74.0 - NONSPEC ELEV OF LEVELS OF TRANSAMNS & LACTIC ACID DEHYDRGNSE Assessment/Plan see problem list transfer to tele
[2019-07-13] MEDS ORDERED: SODIUM CHLORIDE 1,000 ML IV SCH (12:45)
--- NOTE | 2019-07-13 12:55 | PN ---
Progress Note (short form) - Note Progress Note: ID consult dictated 64 yo female admitted 07/09 from [place] s/p fall from wheelchair s/p rapid response this am, transferred to telemetry from [facility] she is now lethargic with an elevated WBC count, acute renal failure and abnormal lfts on exam she has swelling of the right arm, right axillary LN, ecchymoses left eye, left breast induration, ?mass lethargy ?sepsis-?celllulitis of the left breast, ?uti abg, lactic acid, ammonia blood cultures stat ua and urine culture abdomen sonogram is notable for ascites and no ductal dilatation, s/p choly empiric vanco/zosyn after cultures are drawn, adjusted for her carmenza ?breast malignancy- us pending history of AICD history of cardiac cirrhosis overall condition is guarded d/w hospitalist over 45 minutes spent in the care of this patient Problem List - Problems (1) Sepsis Code(s): A41.9 - SEPSIS, UNSPECIFIED ORGANISM (2) Lethargy Code(s): R53.83 - OTHER FATIGUE (3) Anasarca Code(s): R60.1 - GENERALIZED EDEMA (4) Cardiac cirrhosis Code(s): K76.1 - CHRONIC PASSIVE CONGESTION OF LIVER (5) AICD (automatic cardioverter/defibrillator) present Code(s): Z95.810 - PRESENCE OF AUTOMATIC (IMPLANTABLE) CARDIAC DEFIBRILLATOR
[2019-07-13] MEDS ORDERED: VANCOMYCIN 1 GRAM (PRE-DOCKED) 1,000 MG/250 ML BAG IVPB ONE (12:56)
[2019-07-13] MEDS ORDERED: traMADol HCL 50 MG TABLET PO PRN (13:57)
[2019-07-13] MEDS ORDERED: ACETAMINOPHEN 325 MG TABLET (FP) PO PRN (13:57)
[2019-07-13] MEDS ORDERED: GABAPENTIN 300 MG CAPSULE PO SCH (14:00)
[2019-07-13] MEDS ORDERED: PIPERACILLIN/TAZOBACTAM 2.25 GM VIAL IVPB ONE ×2 (14:01→20:56)
[2019-07-13] MEDS ORDERED: DEXTROSE 5%-WATER - 50 ML IVPB ONE ×2 (14:02→20:56)
[2019-07-13] MEDS: PIPERACILLIN/TAZOB 2.25 GM 2.25 GM in DEXTROSE 5%-WATER - 50 ML IVPB SCH ×2 (14:02→21:17)
[2019-07-13 14:08] LABS: ALLENS TEST POSITIVE; ARTERIAL BLD GAS O2 SATURATION 96.5 % (95-98); ARTERIAL BLOOD GAS BASE EXCESS 1.5 meq/l (-2-2); ARTERIAL BLOOD GAS PCO2 36.7 mmHg (35-45); ARTERIAL BLOOD GAS PO2 93.6 mmHg (80-100); ARTERIAL BLOOD GAS pH 7.45 (7.35-7.45)
[2019-07-13 15:20] LABS: EPI CELLS 7.5 /HPF (0-5/HPF); HYALINE CASTS 105 /lpf (0-8); URINE APPEARANCE TURBID; URINE BACTERIA 0.5 /hpf (NEGATIVE); URINE BILIRUBIN 2+ (NEGATIVE); URINE COLOR DK YELLOW; URINE GLUCOSE (UA) NEGATIVE (NEGATIVE); URINE KETONE TRACE (NEGATIVE); URINE LEUK ESTERASE TRACE (NEGATIVE); URINE NITRITE POSITIVE (NEGATIVE); URINE PROTEIN 1+ (NEGATIVE); URINE WBC 4 /hpf (0-5)
[2019-07-13] MEDS: AMIODARONE HCL 200 MG TABLET PO SCH (15:21)
[2019-07-13] MEDS: CLOTRIMAZOLE 1% CREAM 15 GM TUBE TP SCH (15:21)
[2019-07-13] MEDS: SODIUM CHLORIDE 1 GM TABLET PO SCH (15:22)
[2019-07-13] MEDS: AMINO ACIDS/PROTEIN HYDROLYS 30 ML LIQUID.PKT PO SCH (15:22)
[2019-07-13] MEDS ORDERED: LACTULOSE 20 GM/30 ML UDC (FOR ORAL USE ONLY) PO PRN (15:53)
--- NOTE | 2019-07-13 15:59 | CON.GI ---
Consult Consult Specialty:: GI Referred by:: abnormal liver chemistries Reason for Consultation:: 64 y.o. F with known cirrhosis, admitted after fall with ecchymoses. Found to have markedly elevated aminotransferases. - History of Present Illness Chief Complaint: Markedly elevated aminotransferases: Bili 2.0, AST 315, ALT 176 , alk phos 177. 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 Had PEG placed 11/03 after suffering vocal cord damage ( EMS intubation). PEG was subsequently removed. ) Hepatobiliary: Yes: Cirrhosis (cardiac cirrhosis), Cholecystitis (s/p lap choly 05/05) Renal/: Yes: Renal Calculi ...: No Psych: Yes: Depression Musculoskeletal: Yes: Chronic low back pain, Osteoarthritis Endocrine: Yes: Hypothyroidism - Past Surgical History Past Surgical History: Yes: AICD, CABG, Cholecystectomy (05/05), Colonoscopy, Joint Replacement (right THR), Stent (X2) - Alcohol/Substance Use Hx Alcohol Use: No History of Substance Use: reports: None - Smoking History Smoking history: Current some day smoker Have you smoked in the past 12 months: Yes Aproximately how many cigarettes per day: 2 If you are a former smoker, when did you quit?: 3 months ago - Social History Usual Living Arrangement: Alone ADL: Independent 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 History of Recent Travel: No Home Medications - Allergies Allergies/Adverse Reactions: Allergies Allergy/AdvReac Type Severity Reaction Status Date / Time aspirin Allergy Mild Rash Verified 07/09/19 21:57 banana Allergy Hives Verified 07/09/19 21:57 tomato Allergy Verified 07/09/19 21:57 - Home Medications Home Medications: Ambulatory Orders Clopidogrel Bisulfate [Plavix -] 75 mg PO DAILY #30 tablet 08/02/17 Levothyroxine [Synthroid -] 75 mcg PO DAILY@0700 30 Days #30 tablet 08/02/17 Apixaban [Eliquis -] 5 mg PO BID #60 tablet 05/02/19 Aa/Hydrolyzed Collagen, Whey [Lps Neutral Flavor Liquid] 30 ml PO DAILY Amiodarone HCl 200 mg PO DAILY 07/10/19 Clotrimazole 1 applic TP DAILY 07/10/19 Gabapentin 300 mg PO TID 07/10/19 Sodium Chloride Tablet - 1 gm PO DAILY 07/10/19 Torsemide 20 mg PO BID 07/10/19 Physical Exam-GI Vital Signs: Vital Signs Temperature 98.8 F 07/13/19 09:10 Pulse Rate 110 H 07/13/19 10:01 Respiratory Rate 18 07/13/19 10:01 Blood Pressure 120/68 07/13/19 10:01 O2 Sat by Pulse Oximetry (%) 100 07/13/19 10:00 HENT: Yes: Other (Ecchymoses L side of face) Gastrointestinal Inspection: Yes: Ascites ...Auscultate: Yes: Normoactive Bowel Sounds ...Palpate: Yes: Soft Neurological: Yes: Other (Somnolent, confused, disoriented.) Labs: CBC, BMP 07/13/19 07:30 07/13/19 07:30 INR, PTT INR 1.80 (0.83-1.09) H 07/10/19 12:38 Imaging - Results Ultrasound: Report Reviewed Problem List - Problems (1) Ascites Code(s): R18.8 - OTHER ASCITES Qualifiers: Ascites type: other type Qualified Code(s): R18.8 - Other ascites Assessment/Plan Pt with cirrhosis, ascites, and now with clinical hepatic encephalopathy. The AST and ALT may be partially secondary to muscle injury -- the numbers were normal on 07/10. Also note her creatinine has doubled -- she may be having rhabdomyolysis. Will order CPK level. Will institute p.o. lactulose and d/c Tramadol. Avoid any sedating medication until it is clear that she is back to baseline mentation.
[2019-07-13 17:21] LABS: URINE RBC 6.8 /hpf (0-4)
--- NOTE | 2019-07-13 17:49 | CONSULT ---
Consult - text type - Consultation Consultation Note: Consult for ICU admission 64 y.o. F PMH HFrEF,A-fib on eliquis, HTN, HLD, CAD (s/p CABG and PCI), s/p NSTEMI, DM type 2, COPD (on FiO2 at home 5L), liver cirrhosis, ascites, hypothyroidism, s/p fall at [facility]. Head CT negative for bleed, laceration L eyebrow. Patient admitted to [facility] for further work up. Hospital course complicated by couple episodes of slight hypotension (SBP 90); s/p fall ( 07/13) for which HAND ETCHER was activated, head CT negative for bleed. ICU was consulted for lethargy, acute elevation of WBC, transaminitis, hyperbilirubemia and worsening in renal function, along with right arm pain. Vital Signs - 24 hr 07/12/19 07/12/19 07/13/19 20:00 22:00 02:00 Temperature 98.4 F 98.4 F Pulse Rate 62 65 Respiratory 18 18 Rate Blood Pressure 101/53 L 124/70 O2 Sat by Pulse 92 L Oximetry (%) 07/13/19 07/13/19 07/13/19 06:00 08:40 08:55 Temperature 97.5 F L 98.6 F 98.6 F Pulse Rate 123 H 109 H 120 H Respiratory 18 16 16 Rate Blood Pressure 140/64 95/54 L 106/72 O2 Sat by Pulse Oximetry (%) 07/13/19 07/13/19 07/13/19 09:10 10:00 10:01 Temperature 98.8 F Pulse Rate 114 H 110 H Respiratory 18 18 18 Rate Blood Pressure 124/60 120/68 O2 Sat by Pulse 100 Oximetry (%) 07/13/19 14:00 Temperature 100 F H Pulse Rate 114 H Respiratory 20 Rate Blood Pressure 100/61 O2 Sat by Pulse Oximetry (%) Intake & Output 07/10/19 07/11/19 07/12/19 07/13/19 23:59 23:59 23:59 23:59 Intake Total 1560 810 340 Output Total 100 Balance 1560 810 240 Weight 78.199 kg Laboratory Last Values WBC 18.0 K/mm3 (4.0-10.0) H 07/13/19 07:30 RBC 4.02 M/mm3 (3.60-5.2) 07/13/19 07:30 Hgb 10.9 GM/dL (10.7-15.3) 07/13/19 07:30 Hct 34.0 % (32.4-45.2) 07/13/19 07:30 MCV 84.7 fl (80-96) 07/13/19 07:30 MCH 27.2 pg (25.7-33.7) 07/13/19 07:30 MCHC 32.1 g/dl (32.0-36.0) 07/13/19 07:30 RDW 17.9 % (11.6-15.6) H 07/13/19 07:30 Plt Count 360 K/MM3 (134-434) 07/13/19 07:30 MPV 7.4 fl (7.5-11.1) L 07/13/19 07:30 PT with INR 21.40 SEC (9.7-13.0) H 07/10/19 12:38 INR 1.80 (0.83-1.09) H 07/10/19 12:38 PTT (Actin FS) 37.8 SECONDS (25.2-36.5) H 07/10/19 12:38 Anticoagulation Therapy No Result Required. 07/13/19 13:59 Puncture Site Right radial 07/13/19 13:59 ABG pH 7.45 (7.35-7.45) 07/13/19 13:59 ABG pCO2 at Pt Temp 36.7 mmHg (35-45) 07/13/19 13:59 ABG pO2 at Pt Temp 93.6 mmHg (80-100) 07/13/19 13:59 ABG HCO3 25 mmol/L (22-27) 07/13/19 13:59 ABG O2 Sat (Measured) 96.5 % (95-98) 07/13/19 13:59 ABG O2 Content 14.6 % vol 07/13/19 13:59 ABG Base Excess 1.5 meq/l (-2-2) 07/13/19 13:59 Eduar Test Positive 07/13/19 13:59 O2 Delivery Device No Result Required. 07/13/19 13:59 Oxygen Flow Rate 2lpm 07/13/19 13:59 Vent Mode No Result Required. 07/13/19 13:59 Vent Rate No Result Required. 07/13/19 13:59 Mechanical Rate No Result Required. 07/13/19 13:59 Pressure Support Vent No Result Required. 07/13/19 13:59 Sodium 131 mmol/L (136-145) L 07/13/19 07:30 Potassium 5.1 mmol/L (3.5-5.1) 07/13/19 07:30 Chloride 96 mmol/L (98-107) L 07/13/19 07:30 Carbon Dioxide 25 mmol/L (21-32) 07/13/19 07:30 Anion Gap 10 MMOL/L (8-16) 07/13/19 07:30 BUN 65.9 mg/dL (7-18) H 07/13/19 07:30 Creatinine 2.4 mg/dL (0.55-1.3) H 07/13/19 07:30 Est GFR (CKD-EPI)AfAm 23.59 07/13/19 07:30 Est GFR (CKD-EPI)NonAf 20.35 07/13/19 07:30 POC Glucometer 97 UNITS (80-120) 07/13/19 17:53 Random Glucose 92 mg/dL (74-106) 07/13/19 07:30 Lactic Acid 2.1 mmol/L (0.4-2.0) H 07/13/19 12:58 Calcium 9.1 mg/dL (8.5-10.1) 07/13/19 07:30 Phosphorus 3.4 mg/dL (2.5-4.9) 07/10/19 04:51 Magnesium 2.0 mg/dL (1.8-2.4) 07/10/19 04:51 Total Bilirubin 2.0 mg/dL (0.2-1) H 07/13/19 07:30 AST 315 U/L (15-37) H 07/13/19 07:30 ALT 176 U/L (13-61) H 07/13/19 07:30 Alkaline Phosphatase 177 U/L (45-117) H 07/13/19 07:30 Ammonia 52.30 umol/L (11-32) H 07/13/19 12:41 Creatine Kinase 96 U/L (26-192) 07/13/19 07:30 Total Protein 6.5 g/dl (6.4-8.2) 07/13/19 07:30 Albumin 2.2 g/dl (3.4-5.0) L 07/13/19 07:30 Urine Color Dk yellow 07/13/19 14:00 Urine Appearance Turbid 07/13/19 14:00 Urine pH 5.0 (5.0-8.0) 07/13/19 14:00 Ur Specific [place] 1.020 (1.010-1.035) 07/13/19 14:00 Urine Protein 1+ (NEGATIVE) H 07/13/19 14:00 Urine Glucose (UA) Negative (NEGATIVE) 07/13/19 14:00 Urine Ketones Trace (NEGATIVE) H 07/13/19 14:00 Urine Blood 1+ (NEGATIVE) H 07/13/19 14:00 Urine Nitrite Positive (NEGATIVE) H 07/13/19 14:00 Urine Bilirubin 2+ (NEGATIVE) H 07/13/19 14:00 Urine Urobilinogen 2.0 mg/dL (0.2-1.0) H 07/13/19 14:00 Ur Leukocyte Esterase Trace (NEGATIVE) 07/13/19 14:00 Urine WBC (Auto) 4 /hpf (0-5) 07/13/19 14:00 Urine RBC (Auto) 6.8 /hpf (0-4) 07/13/19 14:00 Urine Casts (Auto) 105 /lpf (0-8) 07/13/19 14:00 U Pathogenic Cast Auto None seen /lpf (NEGATIVE) 07/13/19 14:00 U Epithel Cells (Auto) 7.5 /HPF (0-5/HPF) 07/13/19 14:00 Urine Bacteria (Auto) 0.5 /hpf (NEGATIVE) 07/13/19 14:00 Active Medications Acetaminophen (Tylenol -) 650 mg PO Q6H PRN PRN Reason: PAIN LEVEL 1-3 Amino Acids (Prosource No Carb Liquid Pkt) 30 ml PO DAILY [facility] Amiodarone HCl (Cordarone -) 200 mg PO DAILY [facility] Apixaban (Eliquis -) 5 mg PO BID [facility] Clopidogrel Bisulfate (Plavix -) 75 mg PO DAILY [facility] Clotrimazole (Lotrimin 1% Cream -) 1 applic TP DAILY [facility] Docusate Sodium (Colace -) 100 mg PO TID [facility] Last Admin: 07/13/19 15:53 Dose: Not Given Gabapentin (Neurontin -) 300 mg PO TID [facility] Last Admin: 07/13/19 15:54 Dose: Not Given Sodium Chloride (Normal Saline -) 1,000 mls @ 100 mls/hr IV ASDIR [facility] Last Admin: 07/13/19 13:30 Dose: 100 mls/hr Piperacillin Sod/Tazobactam (Sod 2.25 gm/ Dextrose) 50 mls @ 100 mls/hr IVPB Q6H-IV [facility]; Protocol Last Admin: 07/13/19 14:02 Dose: 100 mls/hr Insulin Aspart (Novolog Vial Sliding Scale -) 1 vial SQ ACHS [facility]; Protocol Last Admin: 07/13/19 18:05 Dose: Not Given Lactulose (Cephulac (Oral Use)) 20 gm PO QID PRN PRN Reason: CONSTIPATION Levothyroxine Sodium (Synthroid -) 75 mcg PO DAILY@0700 [facility] Sodium Chloride (Sodium Chloride Tablet -) 1 gm PO DAILY [facility] Torsemide (Demadex -) 20 mg PO BIDLASIX [facility] Last Admin: 07/13/19 15:54 Dose: Not Given ASSESSMENT/PLAN Neuro: lethargic, but arousable; ecchymoses left eye with sutures Pulm: lungs clear bilaterally CV: NSR; swelling left breast (appears like peau d`orange, concerning for breast CA), looks like chronic :incontinent GI: abdomen firm, round, distended, tender non palpation ID: afebrile, WBC 18 Endo: hypothyroidism, DM All Active Problems Abdominal distension (Acute) Head injury due to trauma (Acute) Laceration (Acute) Lethargy (Acute) Leukocytosis (Acute) Transaminitis (Acute) AICD (automatic cardioverter/defibrillator) present (Acute) Acute on chronic renal failure (Acute) Ascites (Acute) Fall (Acute) Hepatopathy (Acute) Obesity (Acute) Abdominal pain (Chronic) Coronary artery disease (Chronic) Diabetes (Chronic) Dyspepsia (Chronic) Fatty liver (Chronic) Hyperbilirubinemia (Chronic) Hyperlipidemia (Chronic) Hypertension (Chronic) Hypothyroidism (Chronic) Lower extremity edema (Chronic) Neuro: Encephalopaphy 2/2 elevated ammonia levels; pt started on lactulose Pulm: Patient able to protect airway, ABG with normal limits, CXR negative for any acute changes CV: patient HD stable; US pending for left breast swelling : Acute on chronic LIANNA; monitor I and O; cultures pending GI: Acute on chronic transaminitis, ascities; acute on chronic hyperbilirubemia ; GI following, recs appreciated ID: acute leukocytosis likely stress related s/p fall; continue antibiotics as per ID Yadi Chance ACNP-BC [id number]
--- NOTE | 2019-07-13 18:56 | CONS ---
DATE OF CONSULTATION: 07/13/2019 REQUESTED BY: Kaila Marcus MD This is a 64-year-old woman who was originally admitted from the longterm on the 09 of July after she was sent for falling out of her wheelchair. Apparently her foot got stuck and she fell forward. She sustained a left eyebrow laceration and some periorbital swelling and was admitted for further evaluation. She had a head CT x2 that is normal. She had a CT of her spine and an x-ray of her pelvis that were negative for fracture. This is now hospital day number 3 and this morning she was noted to be extremely lethargic when she was seen by the hospitalist. A rapid response was called. She was sent for stat CAT scan of her head that was read as unchanged from her prior. As well, she had a duplex of her arm (because her right arm was noted to be swelling) that was negative for DVT. She had an ultrasound of her abdomen, as she was noted as well to have new abnormal LFTs. The CAT scan of the abdomen revealed small to moderate amount of ascites, evidence of cholecystectomy, and no ductal dilatation. I am asked to see her to further evaluate her. She is arousable to voice but she goes back to sleep. Her past medical history is extensive and is notable for heart failure. She has a history of cardiomyopathy and has an ICD placement. She has atrial fibrillation, hypertension, hyperlipidemia, prp-bblswht-szzpjjiht diabetes, coronary artery disease, status post [place]. She is status post stents as well. She has a history of COPD, on oxygen at the longterm, and has a history of hypothyroidism. Surgical history is notable for CABG. She has 2 stents. She has an ICD. She is status post cholecystectomy as well as a right hip replacement. Social history, per the chart, is negative for cigarette, alcohol, or substance use. She is allergic to ASPIRIN and BANANAS and TOMATOES. Her medications at the longterm include Plavix, Synthroid, spironolactone, Eliquis, Lasix, Toprol XL, and Entresto. REVIEW OF SYSTEMS: Currently she is quite sleepy and keeps going back to sleep. PHYSICAL EXAMINATION: General: She is arousable to voice. HEENT: Her left eye is slightly shut where she has ecchymosis on the left side, where she has sutures above her eye. Her right eye opens easily. There is no conjunctivitis. Lungs: Clear to auscultation. Heart: Irregularly irregular. Abdomen: Firm, nontender. Extremities: Notable for diffuse swelling of her right arm and there is a question of a right axillary lymph node. Her left arm is not swollen, but she has diffuse swelling of her left breast that extends to her left flank. Her extremities have trace edema. Vital Signs: Temperature is 98.8, her heart rate is 110 and irregular, blood pressure is 120/68, respiratory rate is 18, she is saturating 100% on 2 L. Her labs are notable, her admission white count was 7.9, today is 18. Hemoglobin 10.9, platelets are 360, INR is 1.8. BUN 38 and creatinine 1 on the , today BUN 65 and creatinine 2.4. LFTs were normal and are now notable for a bilirubin of 2, AST of 315, ALT of 176, alkaline phosphatase of 177. In summary, this is a 64-year-old woman who now has lethargy, leukocytosis, acute renal failure, and abnormal LFTs, who we are in the middle of evaluating. On exam, she has swelling of the right arm, right axillary lymph node, ecchymosis of her left eye, and left breast induration, question whether she has a left breast mass. Would be concerned that she is septic. Would obtain a blood gas, a lactic acid, ammonia, stat blood cultures, UA and urine culture, renal sonogram, x-ray of her arm. Abdominal sonogram was notable for ascites and no ductal dilatation. She is status post cholecystectomy. Would treat her empirically with vancomycin and Zosyn after cultures are drawn and adjusting all for her renal insufficiency. Her overall prognosis is guarded and workup is in progress. Case was discussed at length with the hospitalist. GAYATRI GUERRERO M.D. [id number]
--- NOTE | 2019-07-13 20:24 | CONSULT ---
Consult - text type - Consultation Consultation Note: NEUROLOGY CONSULTATION is greatly appreciated: This 64 yo woman was transferred from [facility] after fall from wheelchair with left orbital trauma but no report of LOC. Was awake, alert and talking on admission. Today was noted to be lethargic and was transferred to . PMH sig for HTN, Afib, ASHD, s/p stents, hypothyroidism On: Clopidogrel; Levothyroxine 75 mcg; Spironolactone 25 mg PO; Apixaban; Furosemide; Metoprolol; Sacubitril/Valsartan. No history related to prior cognition or why she is in NH. Admission CT of head (reviewed): shows diffuse atrophy most prominent in the right frontoparietal cortex (MCA teritory). CT of C-Spine shows DJD but no traumatic changes. Repeat CT of head this AM unchanged. Labs sig for WBC 7.8 K -> 18K; Cr/BUN: Nl -> 2.4/66 Transaminases Normal -> acutely elevated; and NH4= 52.3 mg% today! ANTOINE: Obese. Neck supple NEURO: Lethargic. Barely arousable to sternal rub Semipurposeful movement of both arms and legs to sternal rub and pinch. Grimaces. Pupils 5 mm reactive. Full EOM's. Blinks to threat both ramirez. No obvious facial asymmetry. All fours flacid but withdraw. Diffusely reduced reflexes. B/L Babinskis. Withdraws all fours to pinch IMP: Severe B/L cerebral dysfunction, apparently acute, most c/w acute Toxic- metabolic encephalopathy. Hepatorenal syndrome. Etiology? Sepsis, dehydration? Underlying Cirrhosis ? SUGGEST: Hydration if OK with renal Eval and Rx as per GI, ID, and renal at this juncture. Follow NH4 and Rx, empirically for Hepatic encephalopathy with lactulose, etc. Thank you very much, Onesimo Oliveira MD
[2019-07-13] MEDS: APIXABAN 5 MG TABLET PO SCH (21:17)
[2019-07-14] MEDS ORDERED: PIPERACILLIN/TAZOBACTAM 2.25 GM VIAL IVPB ONE ×3 (03:07→20:52)
[2019-07-14] MEDS ORDERED: DEXTROSE 5%-WATER - 50 ML IVPB ONE ×3 (03:08→20:52)
[2019-07-14] MEDS: PIPERACILLIN/TAZOB 2.25 GM 2.25 GM in DEXTROSE 5%-WATER - 50 ML IVPB SCH ×4 (03:11→21:10)
[2019-07-14] MEDS: TORSEMIDE 20 MG TABLET (FP) PO SCH ×2 (06:11→16:21)
[2019-07-14] MEDS: DOCUSATE SODIUM 100 MG CAPSULE (FP) PO SCH ×3 (06:11→21:11)
[2019-07-14] MEDS: LEVOTHYROXINE NA 75 MCG TABLET (FP) PO SCH (06:11)
[2019-07-14] MEDS: INSULIN SLIDING SCALE (NOVOLOG) 1 VIAL SQ SCH ×4 (06:19→22:10)
[2019-07-14 07:05] LABS: HEMATOCRIT 31.9 % (32.4-45.2); HEMOGLOBIN 10.2 GM/dL (10.7-15.3); MCH 27.5 pg (25.7-33.7); MCHC 32.1 g/dl (32.0-36.0); MEAN CELL VOLUME 85.6 fl (80-96); MEAN PLT VOLUME 7.4 fl (7.5-11.1); PLATELET COUNT 331 K/MM3 (134-434); RBC 3.73 M/mm3 (3.60-5.2)
[2019-07-14 07:38] LABS: ALBUMIN 2.1 g/dl (3.4-5.0); BILIRUBIN,TOTAL 2.1 mg/dL (0.2-1); BLOOD UREA NITROGEN 68.9 mg/dL (7-18); CALCIUM 8.9 mg/dL (8.5-10.1); CREATININE 2.5 mg/dL (0.55-1.3); TOT PROT 6.3 g/dl (6.4-8.2)
--- NOTE | 2019-07-14 09:03 | PN ---
Progress Note, Physician Chief Complaint: Mechanical Fall L Periorbital Edema L Eyebrow Laceration History of Present Illness: Previous noted and events reviewed less lethargic today, more verbally responsive and awake, follows simple commands BC prelim positive Leukocytosis with WBC trending down 18.0~13.0 Cr remain 2.5 LFTs showing uptrend - Current Medication List Current Medications: Active Medications Amiodarone HCl (Cordarone -) 200 mg PO DAILY [facility] Apixaban (Eliquis -) 5 mg PO BID [facility] Last Admin: 07/13/19 21:17 Dose: 5 mg Clopidogrel Bisulfate (Plavix -) 75 mg PO DAILY [facility] Clotrimazole (Lotrimin 1% Cream -) 1 applic TP DAILY [facility] Docusate Sodium (Colace -) 100 mg PO TID [facility] Last Admin: 07/14/19 06:11 Dose: 100 mg Piperacillin Sod/Tazobactam (Sod 2.25 gm/ Dextrose) 50 mls @ 100 mls/hr IVPB Q6H-IV [facility]; Protocol Last Admin: 07/14/19 03:11 Dose: 100 mls/hr Insulin Aspart (Novolog Vial Sliding Scale -) 1 vial SQ ACHS [facility]; Protocol Last Admin: 07/14/19 06:19 Dose: Not Given Lactulose (Cephulac (Oral Use)) 20 gm PO QID PRN PRN Reason: CONSTIPATION Last Admin: 07/13/19 21:58 Dose: 20 gm Levothyroxine Sodium (Synthroid -) 75 mcg PO DAILY@0700 [facility] Last Admin: 07/14/19 06:11 Dose: 75 mcg Sodium Chloride (Sodium Chloride Tablet -) 1 gm PO DAILY [facility] Torsemide (Demadex -) 20 mg PO BIDLASIX [facility] Last Admin: 07/14/19 06:11 Dose: 20 mg - Objective Vital Signs: Vital Signs Temperature 98.2 F 07/14/19 05:37 Pulse Rate 117 H 07/14/19 05:37 Respiratory Rate 20 07/14/19 05:37 Blood Pressure 112/59 L 07/14/19 05:37 O2 Sat by Pulse Oximetry (%) 100 07/13/19 21:15 Constitutional: Yes: No Distress, Calm Eyes: Yes: Conjunctiva Clear, Other (crust noted to L eye) HENT: Yes: Other (L periorbital ecchymosis and edema) Cardiovascular: Yes: Tachycardia Respiratory: Yes: Regular, Diminished Gastrointestinal: Yes: Normal Bowel Sounds, Soft, Tenderness (diffuse) Genitourinary: Yes: Lam Present Musculoskeletal: Yes: Muscle Weakness Edema: Yes Edema: RUE: 1+ Neurological: Yes: Lethargy Labs: CBC, BMP 07/14/19 06:20 07/14/19 06:20 INR, PTT INR 1.80 (0.83-1.09) H 07/10/19 12:38 Microbiology 07/13/19 13:44 Blood - Peripheral Venous Blood Culture - Preliminary Pending Organism 07/13/19 13:44 Blood - Peripheral Venous Blood Culture - Preliminary Pending Organism Problem List - Problems (1) Abdominal distension Assessment/Plan: FUA shows some air in stomach and air in small bowel loops, some air in colon with some stool, pneumoperitoneum and pneumatosis not seen GI on board Abdominal US shows hetergenous liver with ascites Code(s): R14.0 - ABDOMINAL DISTENSION (GASEOUS) (2) Head injury due to trauma Assessment/Plan: Neuro checks Head CT scan shows no evidence of acute intracranial hemorrhage, edema, midline shift, mass effect, or skull fracture repeat Head CT scan shows no significant interval change, focal encephalomalacia in right frontal lobe anteriorly, no intracranial pathology identified Facial CT scan show maxillofacial and orbital structures show no fracture, left periorbital soft tissue edema, no intraorbital soft tissue edema or hematoma, no ocular globe injury pain control Code(s): S09.90XA - UNSPECIFIED INJURY OF HEAD, INITIAL ENCOUNTER Qualifiers: Encounter type: initial encounter Qualified Code(s): S09.90XA - Unspecified injury of head, initial encounter (3) Laceration Assessment/Plan: Sutures in place Code(s): [id number] - (4) Anemia Assessment/Plan: Hg 10.2 monitor Hg daily transfuse for Hg <8.0 Code(s): D64.9 - ANEMIA, UNSPECIFIED (5) Fall Assessment/Plan: Fall precaution PT Code(s): W19.XXXA - UNSPECIFIED FALL, INITIAL ENCOUNTER (6) PAF (paroxysmal atrial fibrillation) Assessment/Plan: Apaxiban Amiodarone Code(s): I48.0 - PAROXYSMAL ATRIAL FIBRILLATION (7) Chronic systolic congestive heart failure Assessment/Plan: Torsemide 1L fluid restriction strict I&Os daily weight low Na diet Code(s): I50.22 - CHRONIC SYSTOLIC (CONGESTIVE) HEART FAILURE (8) Coronary artery disease Assessment/Plan: Plavix Code(s): I25.10 - ATHSCL HEART DISEASE OF [place] CORONARY ARTERY W/O ANG PCTRS (9) Diabetes Assessment/Plan: [facility] ISS Code(s): E11.9 - TYPE 2 DIABETES MELLITUS WITHOUT COMPLICATIONS Qualifiers: Diabetes mellitus type: type 2 Diabetes mellitus terminologist insulin use: with care home use Diabetes mellitus complication status: with unspecified complications (10) Hypertension Assessment/Plan: monitor BP Code(s): I10 - ESSENTIAL (PRIMARY) HYPERTENSION Qualifiers: Hypertension type: essential hypertension Qualified Code(s): I10 - Essential (primary) hypertension (11) Hypothyroidism Assessment/Plan: Levothyroxine Code(s): E03.9 - HYPOTHYROIDISM, UNSPECIFIED (12) Lethargy Assessment/Plan: repeat Head CT scan shows Neurochecks q4h Tele monitoring Neurology on board no acute intracranial hemorrhage or acute infarction, no acute changes in brain since last exam 07/10/19 lethargy possibly 2/2 toxic metabolic encephalopathy ammonia 52.3 Lactulose Code(s): R53.83 - OTHER FATIGUE (13) Leukocytosis Assessment/Plan: WBC 1trending down 18.0~13.0 ID on board Received Vancomycin and Zosyn STAT yesterday, now currently on Zosyn afebrile BC prelim positive UC pending Lactic Acid 2.1 CXR shows enlarged heart, sternal sutures, pacemaker and central congestive changes , discrete infiltrate is not seen Code(s): D72.829 - ELEVATED WHITE BLOOD CELL COUNT, UNSPECIFIED (14) ARF (acute renal failure) Assessment/Plan: Renal Consult BUN/Cr 68.9/2.5 monitor renal function daily Code(s): N17.9 - ACUTE KIDNEY FAILURE, UNSPECIFIED (15) Transaminitis Assessment/Plan: GI on board Abdominal US shows heterogenous liver with ascites AST 467, ALT 296, Alk Phos 181 Code(s): R74.0 - NONSPEC ELEV OF LEVELS OF TRANSAMNS & LACTIC ACID DEHYDRGNSE (16) Sepsis Assessment/Plan: WBC 1trending down 18.0~13.0 ID on board Received Vancomycin and Zosyn STAT yesterday, now currently on Zosyn afebrile BC prelim positive UC pending Lactic Acid 2.1 CXR shows enlarged heart, sternal sutures, pacemaker and central congestive changes , discrete infiltrate is not seen Code(s): A41.9 - SEPSIS, UNSPECIFIED ORGANISM Assessment/Plan see problem list dvt ppx
--- NOTE | 2019-07-14 09:51 | PN ---
Progress Note (short form) - Note Progress Note: remains on telemetry sleepy but ate breakfast! blood cultures / bottles GPC clusters Vital Signs Period Temp Pulse Resp BP Sys/Santoro Pulse Ox Last 24 Hr 97.8 F-100 F 107-117 18-20 96-120/58-68 100-100 +right eyebrow laceration cor-irreg lungs decreased bs at bases abd soft, +left flank edema, +left breast erythema and induration ext no edema no skin breakdown right arm swelling persists CBC, BMP 07/14/19 06:20 07/14/19 06:20 Laboratory Tests 07/13/19 07/13/19 07:30 12:41 Ammonia 52.30 H Creatine Kinase 96 Microbiology 07/13/19 13:44 Blood - Peripheral Venous Blood Culture - Preliminary Pending Organism 07/13/19 13:44 Blood - Peripheral Venous Blood Culture - Preliminary Pending Organism a/p fever/lethargy gram positive bacteremia- ?celllulitis right breast, ultrasound pending would get chest ct no contrast evaluate ICD pocket (same side chest wall as erythema) echo repeat blood cultures daptomycin one dose- cpk is normal continue zosyn 24 hours renal/gi f/u cardiology f/u concern for icd infection/endocarditis given ICD elevated ammonia -history of cardiac cirrhosis left breast swelling and erythema- f/u sonogram overall prognosis is guarded d/w hospitalist
[2019-07-14] MEDS: SODIUM CHLORIDE 1 GM TABLET PO SCH (09:53)
[2019-07-14] MEDS: CLOTRIMAZOLE 1% CREAM 15 GM TUBE TP SCH (09:54)
[2019-07-14] MEDS: CLOPIDOGREL BISULFATE 75 MG TABLET (FP) PO SCH (09:54)
[2019-07-14] MEDS: APIXABAN 5 MG TABLET PO SCH ×2 (09:54→21:11)
[2019-07-14] MEDS ORDERED: AMINO ACIDS/PROTEIN HYDROLYS 30 ML LIQUID.PKT PO SCH (10:00)
[2019-07-14] MEDS ORDERED: AMIODARONE HCL 200 MG TABLET PO SCH (10:00)
[2019-07-14] MEDS ORDERED: METOPROLOL TARTRATE 5 MG/5 ML VIAL IVPUSH PRN (10:06)
--- NOTE | 2019-07-14 10:11 | PN ---
Progress Note (short form) - Note Progress Note: Spoke with Dr Cage about patient current condition. Patient is currently on Amiodarone for rate control for Afib and is having uptrend in LFTs. Will discontinue Amiodarone at present and start on Lopressor 5mg IVP q4h prn for HR 115bpm. Problem List - Problems (1) Abdominal distension Code(s): R14.0 - ABDOMINAL DISTENSION (GASEOUS) (2) Head injury due to trauma Code(s): S09.90XA - UNSPECIFIED INJURY OF HEAD, INITIAL ENCOUNTER Qualifiers: Encounter type: initial encounter Qualified Code(s): S09.90XA - Unspecified injury of head, initial encounter (3) Laceration Code(s): [id number] - (4) Anemia Code(s): D64.9 - ANEMIA, UNSPECIFIED (5) Fall Code(s): W19.XXXA - UNSPECIFIED FALL, INITIAL ENCOUNTER (6) PAF (paroxysmal atrial fibrillation) Code(s): I48.0 - PAROXYSMAL ATRIAL FIBRILLATION (7) Chronic systolic congestive heart failure Code(s): I50.22 - CHRONIC SYSTOLIC (CONGESTIVE) HEART FAILURE (8) Coronary artery disease Code(s): I25.10 - ATHSCL HEART DISEASE OF [place] CORONARY ARTERY W/O ANG PCTRS (9) Diabetes Code(s): E11.9 - TYPE 2 DIABETES MELLITUS WITHOUT COMPLICATIONS Qualifiers: Diabetes mellitus type: type 2 Diabetes mellitus rodent exterminator insulin use: with rodent exterminator use Diabetes mellitus complication status: with unspecified complications (10) Hypertension Code(s): I10 - ESSENTIAL (PRIMARY) HYPERTENSION Qualifiers: Hypertension type: essential hypertension Qualified Code(s): I10 - Essential (primary) hypertension (11) Hypothyroidism Code(s): E03.9 - HYPOTHYROIDISM, UNSPECIFIED (12) Lethargy Code(s): R53.83 - OTHER FATIGUE (13) Leukocytosis Code(s): D72.829 - ELEVATED WHITE BLOOD CELL COUNT, UNSPECIFIED (14) ARF (acute renal failure) Code(s): N17.9 - ACUTE KIDNEY FAILURE, UNSPECIFIED (15) Transaminitis Code(s): R74.0 - NONSPEC ELEV OF LEVELS OF TRANSAMNS & LACTIC ACID DEHYDRGNSE (16) Sepsis Code(s): A41.9 - SEPSIS, UNSPECIFIED ORGANISM
--- NOTE | 2019-07-14 10:54 | PN ---
Progress Note, Physician History of Present Illness: 64 y.o. black woman with PMH HFrEF(severely reduced LVEF; s/p ICD placement), A- fib: was on metoprolol ER and eliquis; the former was changed to amiodarone on a recent admission), HTN, HLD, CAD, s/p NSTEMI (s/p CABG and PCI), DM type 2, COPD (on home 02 5L), hypothyroidism,anemia, overweight, presenting from [facility] after falling out of a wheelchair. The patient says she was being wheeled in the wheelchair, her foot became stuck under the chair and subsequently fell forward. Denies LOC, no incontinence, no tongue biting; however the patient sustained L eyebrow laceration. Noted to have mild L periorbital swelling; no decrease in visual acuity. Denies MOREAU. - Current Medication List Current Medications: Active Medications Apixaban (Eliquis -) 5 mg PO BID [facility] Last Admin: 07/14/19 09:54 Dose: 5 mg Clopidogrel Bisulfate (Plavix -) 75 mg PO DAILY [facility] Last Admin: 07/14/19 09:54 Dose: 75 mg Clotrimazole (Lotrimin 1% Cream -) 1 applic TP DAILY [facility] Last Admin: 07/14/19 09:54 Dose: 1 applic Docusate Sodium (Colace -) 100 mg PO TID [facility] Last Admin: 07/14/19 06:11 Dose: 100 mg Piperacillin Sod/Tazobactam (Sod 2.25 gm/ Dextrose) 50 mls @ 100 mls/hr IVPB Q6H-IV [facility]; Protocol Last Admin: 07/14/19 09:53 Dose: 100 mls/hr Daptomycin 650 mg/ Sodium (Chloride) 50 mls @ 50 mls/hr IVPB ONCE ONE; Protocol Stop: 07/14/19 11:59 Insulin Aspart (Novolog Vial Sliding Scale -) 1 vial SQ ACHS [facility]; Protocol Last Admin: 07/14/19 06:19 Dose: Not Given Lactulose (Cephulac (Oral Use)) 20 gm PO QID PRN PRN Reason: CONSTIPATION Last Admin: 07/13/19 21:58 Dose: 20 gm Levothyroxine Sodium (Synthroid -) 75 mcg PO DAILY@0700 [facility] Last Admin: 07/14/19 06:11 Dose: 75 mcg Metoprolol Tartrate (Lopressor Injection -) 5 mg IVPUSH Q4H PRN PRN Reason: TACHYCARDIA Sodium Chloride (Sodium Chloride Tablet -) 1 gm PO DAILY [facility] Last Admin: 07/14/19 09:53 Dose: 1 gm Torsemide (Demadex -) 20 mg PO BIDLASIX [facility] Last Admin: 07/14/19 06:11 Dose: 20 mg - Objective Vital Signs: Vital Signs Temperature 98.2 F 07/14/19 05:37 Pulse Rate 117 H 07/14/19 05:37 Respiratory Rate 20 07/14/19 05:37 Blood Pressure 112/59 L 07/14/19 05:37 O2 Sat by Pulse Oximetry (%) 100 07/13/19 21:15 Eyes: Yes: WNL, Conjunctiva Clear, EOM Intact HENT: Yes: WNL, Atraumatic, Normocephalic Neck: Yes: WNL, Supple, Trachea Midline Cardiovascular: Yes: WNL, Regular Rate and Rhythm Respiratory: Yes: WNL, Regular, CTA Bilaterally Gastrointestinal: Yes: WNL, Normal Bowel Sounds Genitourinary: Yes: WNL Musculoskeletal: Yes: WNL Edema: Yes Integumentary: Yes: WNL ...Motor Strength: WNL Psychiatric: Yes: WNL Labs: CBC, BMP 07/14/19 06:20 07/14/19 06:20 INR, PTT INR 1.80 (0.83-1.09) H 07/10/19 12:38 Problem List - Problems (1) ARF (acute renal failure) Code(s): N17.9 - ACUTE KIDNEY FAILURE, UNSPECIFIED (2) Abdominal distension Code(s): R14.0 - ABDOMINAL DISTENSION (GASEOUS) (3) Head injury due to trauma Code(s): S09.90XA - UNSPECIFIED INJURY OF HEAD, INITIAL ENCOUNTER Qualifiers: Encounter type: initial encounter Qualified Code(s): S09.90XA - Unspecified injury of head, initial encounter (4) Laceration Code(s): [id number] - (5) Lethargy Code(s): R53.83 - OTHER FATIGUE (6) Leukocytosis Code(s): D72.829 - ELEVATED WHITE BLOOD CELL COUNT, UNSPECIFIED (7) Transaminitis Code(s): R74.0 - NONSPEC ELEV OF LEVELS OF TRANSAMNS & LACTIC ACID DEHYDRGNSE (8) AICD (automatic cardioverter/defibrillator) present Code(s): Z95.810 - PRESENCE OF AUTOMATIC (IMPLANTABLE) CARDIAC DEFIBRILLATOR (9) LIANNA (acute kidney injury) Code(s): N17.9 - ACUTE KIDNEY FAILURE, UNSPECIFIED (10) Acute on chronic renal failure Code(s): N17.9 - ACUTE KIDNEY FAILURE, UNSPECIFIED; N18.9 - CHRONIC KIDNEY DISEASE, UNSPECIFIED (11) Acute on chronic systolic and diastolic heart failure, NYHA class 3 Code(s): I50.43 - ACUTE ON CHRONIC COMBINED SYSTOLIC AND DIASTOLIC HRT FAIL (12) Anasarca Code(s): R60.1 - GENERALIZED EDEMA (13) Anemia Code(s): D64.9 - ANEMIA, UNSPECIFIED (14) Anxiety and depression Code(s): F41.9 - ANXIETY DISORDER, UNSPECIFIED; F32.9 - MAJOR DEPRESSIVE DISORDER, SINGLE EPISODE, UNSPECIFIED (15) Ascites Code(s): R18.8 - OTHER ASCITES Qualifiers: Ascites type: other type Qualified Code(s): R18.8 - Other ascites (16) Bacteremia Code(s): R78.81 - BACTEREMIA (17) CHF exacerbation Code(s): I50.9 - HEART FAILURE, UNSPECIFIED Qualifiers: Heart failure type: unspecified Qualified Code(s): I50.9 - Heart failure, unspecified (18) Chest pain of uncertain etiology Code(s): R07.89 - OTHER CHEST PAIN (19) Chronic abdominal pain Code(s): R10.9 - UNSPECIFIED ABDOMINAL PAIN; G89.29 - OTHER CHRONIC PAIN (20) Diverticulosis Code(s): K57.90 - DVRTCLOS OF INTEST, PART UNSP, W/O PERF OR ABSCESS W/O BLEED (21) Facial swelling Code(s): R22.0 - LOCALIZED SWELLING, MASS AND LUMP, HEAD (22) Fall Code(s): W19.XXXA - UNSPECIFIED FALL, INITIAL ENCOUNTER (23) Hepatopathy Code(s): K76.9 - LIVER DISEASE, UNSPECIFIED (24) Hx of CABG Code(s): Z95.1 - PRESENCE OF AORTOCORONARY BYPASS GRAFT (25) Hypokalemia Code(s): E87.6 - HYPOKALEMIA (26) Hypomagnesemia Code(s): E83.42 - HYPOMAGNESEMIA (27) Hypotension Code(s): I95.9 - HYPOTENSION, UNSPECIFIED (28) Noncompliance with therapeutic plan Code(s): Z91.11 - PATIENT'S NONCOMPLIANCE WITH DIETARY REGIMEN (29) Obesity Code(s): E66.9 - OBESITY, UNSPECIFIED (30) Overweight Code(s): E66.3 - OVERWEIGHT (31) PAF (paroxysmal atrial fibrillation) Code(s): I48.0 - PAROXYSMAL ATRIAL FIBRILLATION (32) Rapid atrial fibrillation Code(s): I48.91 - UNSPECIFIED ATRIAL FIBRILLATION (33) Sepsis Code(s): A41.9 - SEPSIS, UNSPECIFIED ORGANISM (34) Severe pulmonary arterial systolic hypertension Code(s): I27.21 - SECONDARY PULMONARY ARTERIAL HYPERTENSION (35) Shortness of breath Code(s): R06.02 - SHORTNESS OF BREATH (36) Smokes cigarettes Code(s): F17.210 - NICOTINE DEPENDENCE, CIGARETTES, UNCOMPLICATED (37) Subendocardial ischemia Code(s): I24.8 - OTHER FORMS OF ACUTE ISCHEMIC HEART DISEASE (38) Abdominal pain Code(s): R10.9 - UNSPECIFIED ABDOMINAL PAIN Qualifiers: Abdominal location: lower abdomen, unspecified Qualified Code(s): R10.30 - Lower abdominal pain, unspecified (39) Acute combined systolic and diastolic ACC/AHA stage C congestive heart failure Code(s): I50.41 - ACUTE COMBINED SYSTOLIC AND DIASTOLIC (CONGESTIVE) HRT FAIL (40) CHF (congestive heart failure) Code(s): I50.9 - HEART FAILURE, UNSPECIFIED Qualifiers: Heart failure type: unspecified Heart failure chronicity: acute on chronic Qualified Code(s): I50.9 - Heart failure, unspecified (41) Chest pain Code(s): R07.9 - CHEST PAIN, UNSPECIFIED Qualifiers: Chest pain type: unspecified Qualified Code(s): R07.9 - Chest pain, unspecified (42) Chronic systolic congestive heart failure Code(s): I50.22 - CHRONIC SYSTOLIC (CONGESTIVE) HEART FAILURE (43) Cigarette nicotine dependence Code(s): F17.210 - NICOTINE DEPENDENCE, CIGARETTES, UNCOMPLICATED (44) Coronary artery disease Code(s): I25.10 - ATHSCL HEART DISEASE OF [place] CORONARY ARTERY W/O ANG PCTRS (45) Depression Code(s): F32.9 - MAJOR DEPRESSIVE DISORDER, SINGLE EPISODE, UNSPECIFIED (46) Diabetes Code(s): E11.9 - TYPE 2 DIABETES MELLITUS WITHOUT COMPLICATIONS Qualifiers: Diabetes mellitus type: type 2 Diabetes mellitus watermaster insulin use: with prison use Diabetes mellitus complication status: with unspecified complications (47) Dyspepsia Code(s): K30 - FUNCTIONAL DYSPEPSIA (48) Fatty liver Code(s): K76.0 - FATTY (CHANGE OF) LIVER, NOT ELSEWHERE CLASSIFIED (49) Hyperbilirubinemia Code(s): E80.6 - OTHER DISORDERS OF BILIRUBIN METABOLISM (50) Hyperlipidemia Code(s): E78.5 - HYPERLIPIDEMIA, UNSPECIFIED Qualifiers: Hyperlipidemia type: pure hypercholesterolemia Qualified Code(s): E78.00 - Pure hypercholesterolemia, unspecified; E78.0 - Pure hypercholesterolemia (51) Hypertension Code(s): I10 - ESSENTIAL (PRIMARY) HYPERTENSION Qualifiers: Hypertension type: essential hypertension Qualified Code(s): I10 - Essential (primary) hypertension (52) Hypothyroidism Code(s): E03.9 - HYPOTHYROIDISM, UNSPECIFIED (53) ICD (implantable cardioverter-defibrillator) in place Code(s): Z95.810 - PRESENCE OF AUTOMATIC (IMPLANTABLE) CARDIAC DEFIBRILLATOR (54) Lower extremity edema Code(s): R60.0 - LOCALIZED EDEMA (55) NSVT (nonsustained ventricular tachycardia) Code(s): I47.2 - VENTRICULAR TACHYCARDIA (56) Noncompliance with medication regimen Code(s): Z91.14 - PATIENT'S OTHER NONCOMPLIANCE WITH MEDICATION REGIMEN (57) Peripheral neuropathy Code(s): G62.9 - POLYNEUROPATHY, UNSPECIFIED Qualifiers: Peripheral neuropathy type: polyneuropathy, unspecified Qualified Code(s): G62.9 - Polyneuropathy, unspecified (59) Sleep apnea Code(s): G47.30 - SLEEP APNEA, UNSPECIFIED (60) Sphincter of Oddi dysfunction Code(s): K83.4 - SPASM OF SPHINCTER OF ODDI (61) Status post THR (total hip replacement) Code(s): Z96.649 - PRESENCE OF UNSPECIFIED ARTIFICIAL HIP JOINT (62) Cardiac cirrhosis Code(s): K76.1 - CHRONIC PASSIVE CONGESTION OF LIVER Assessment/Plan 1. Post fall resulting in facial/orbital laceration and ecchymosis and swelling , currently lethargy with left breast swelling ? hematoma and right arm swelling ? etiology 2. Acute on chronic systolic and diastolic heart failure class 3 NYHA classification heart failure (HFrEF) 3. Post AICD implant 4. Atrial fibrillation with RVR 5. HTN 6. Hypercholesterolemia 7. CAD history of NSTEMI, CABG, PCI 8. DM 9. Acute on CKD 10. Anemia 11. COPD and JORDY PLAN: 1. Consider repeat head CT for mental status change. Consider Neurology evaluation. May need brain MRI if CT negative 2. Either ultrasound of the breast or CT scan to rule out hematoma 3. Ultrasound of right arm 4. Consider transfer to ICU monitored setting 5. Currently on Amiodarone 200 mg QD 6. Consider beta carrie therapy with Carvedilol 3.125 mg BID in the near future, but as stated above, has low blood pressure this morning, thus limiting its use 7. Demadex 20 mg BID and monitor renal function and electrolytes, but may need to be held until further instruction
[2019-07-14] MEDS: DAPTOMYCIN 650 MG in SODIUM CHLORIDE 50 ML IVPB ONE ×2 (11:13→18:30)
--- NOTE | 2019-07-14 14:22 | ECHO ---
Name: MIHIR JAY Exam:Adult Echocardiogram Study Date: 07/14/2019 11:59 AM Age: 64 yrs Height: 64 in Weight: 183 lb BSA: 1.9 m2 MMode/2D Measurements & Calculations IVSd: 0.99 cm Ao root diam: 2.3 cm LVIDd: 6.5 cm LA dimension: 4.6 cm LVIDs: 5.9 cm LVPWd: 1.4 cm LVPWs: 1.4 cm EDV(Teich): 215.8 ml ESV(Teich): 174.2 ml LVOT diam: 1.9 cm Doppler Measurements & Calculations MV E max hernan: 74.2 cm/sec Ao V2 max: 118.7 cm/sec MV A max hernan: 98.0 cm/sec Ao max P.6 mmHg MV E/A: 0.76 MV dec time: 0.15 sec SHARON(V,D): 1.9 cm2 LV V1 max P.6 mmHg MR max hernan: 377.6 cm/sec LV V1 max: 80.4 cm/sec MR max P.0 mmHg TR max hernan: 229.4 cm/sec PA V2 max: 89.0 cm/sec TR max P.1 mmHg PA max P.2 mmHg Med Peak E' Hernan: 5.0 cm/sec Med E/e': 14.8 Lat Peak E' Hernan: 8.2 cm/sec Lat E/e': 9.1 Procedure Study Quality: Fair. Left Ventricle The left ventricle is severely dilated. Left ventricular systolic function is severely reduced. Eject ion Fraction = 15-20%. Right Ventricle The right ventricle is severely dilated. The right ventricular systolic function is severely reduced. Atria The left atrium is moderately dilated. The right atrium is moderately dilated. Mitral Valve The mitral valve is grossly normal. There is moderate mitral regurgitation. Tricuspid Valve The tricuspid valve is not well visualized. There is moderate tricuspid regurgitation. Right ventricu lar systolic pressure is normal. Aortic Valve The aortic valve is normal in structure and function. Pulmonic Valve The pulmonic valve is not well seen, but is grossly normal. Trace pulmonic valvular regurgitation. Great Vessels The aortic root is not well visualized. Pericardium/Pleura There is no pericardial effusion. Interpretation Summary LV: Severely dilated, severe global hypokinesia with severely decreased systolic function, EF <20% RV: Severely dilated and hypokinetic PM/ICD lead in right heart Moderately dilated atria Modertae MR and TR Normal RVSP. Ann Marie Tran 07/14/2019 02:21 PM
--- NOTE | 2019-07-14 16:38 | CONSULT ---
Consult Consult Specialty:: Nephrology Reason for Consultation:: LIANNA - History of Present Illness Chief Complaint: s/p fall History of Present Illness: Pt is a 64 year old female with pmhx of chf, aicd, ckd, lianna, a-fib, htn, hld, cad, dm. copd, anemai. and hypothyroidism who presents from the [place] after a fall. She was admitted for treatment. I was called to evaluate her as she was found to be in acute renal failre. She was also found to have a UTI and found to be septic. She was hypotensive and required a fluid bolus. She is arousable. She denies shortness of breath. 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 Had PEG placed 11/03 after suffering vocal cord damage ( EMS intubation). PEG was subsequently removed. ) Hepatobiliary: Yes: Cirrhosis (cardiac cirrhosis), Cholecystitis (s/p lap choly 05/05) Renal/: Yes: Renal Calculi ...: No Psych: Yes: Depression Musculoskeletal: Yes: Chronic low back pain, Osteoarthritis Endocrine: Yes: Hypothyroidism - Past Surgical History Past Surgical History: Yes: AICD, CABG, Cholecystectomy (05/05), Colonoscopy, Joint Replacement (right THR), Stent (X2) - Alcohol/Substance Use Hx Alcohol Use: No History of Substance Use: reports: None - Smoking History Smoking history: Current some day smoker Have you smoked in the past 12 months: Yes Aproximately how many cigarettes per day: 2 If you are a former smoker, when did you quit?: 3 months ago - Social History Usual Living Arrangement: Alone ADL: Independent 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 History of Recent Travel: No Home Medications - Allergies Allergies/Adverse Reactions: Allergies Allergy/AdvReac Type Severity Reaction Status Date / Time aspirin Allergy Mild Rash Verified 07/09/19 21:57 banana Allergy Hives Verified 07/09/19 21:57 tomato Allergy Verified 07/09/19 21:57 - Home Medications Home Medications: Ambulatory Orders Clopidogrel Bisulfate [Plavix -] 75 mg PO DAILY #30 tablet 08/02/17 Levothyroxine [Synthroid -] 75 mcg PO DAILY@0700 30 Days #30 tablet 08/02/17 Apixaban [Eliquis -] 5 mg PO BID #60 tablet 05/02/19 Aa/Hydrolyzed Collagen, Whey [Lps Neutral Flavor Liquid] 30 ml PO DAILY Amiodarone HCl 200 mg PO DAILY 07/10/19 Clotrimazole 1 applic TP DAILY 07/10/19 Gabapentin 300 mg PO TID 07/10/19 Sodium Chloride Tablet - 1 gm PO DAILY 07/10/19 Torsemide 20 mg PO BID 07/10/19 Family Medical History Family History: Denies Review of Systems - Review of Systems Constitutional: reports: Malaise Eyes: reports: No Symptoms HENT: reports: No Symptoms Neck: reports: No Symptoms Cardiovascular: reports: Edema Respiratory: reports: SOB on Exertion Genitourinary: reports: No Symptoms Musculoskeletal: reports: No Symptoms Integumentary: reports: No Symptoms Neurological: reports: No Symptoms Endocrine: reports: No Symptoms Hematology/Lymphatic: reports: No Symptoms Psychiatric: reports: No Symptoms Physical Exam Vital Signs: Vital Signs Temperature 97.8 F 07/14/19 14:00 Pulse Rate 115 H 07/14/19 14:00 Respiratory Rate 07/14/19 05:37 Blood Pressure 94/59 L 07/14/19 14:00 O2 Sat by Pulse Oximetry (%) 100 07/13/19 21:15 Constitutional: Yes: Calm Eyes: Yes: WNL HENT: Yes: Other (left forehead trauma) Cardiovascular: Yes: S1, S2 Respiratory: Yes: On Nasal O2 Gastrointestinal: Yes: Soft, Abdomen, Obese Renal/: Yes: Lam Present Musculoskeletal: Yes: Muscle Weakness Edema: Yes Edema: LUE: 1+, RUE: 1+, LLE: 2+, RLE: 2+ Neurological: Yes: Oriented Psychiatric: Yes: Oriented Labs: CBC, BMP 07/14/19 06:20 07/14/19 06:20 Microbiology 07/13/19 13:44 Blood - Peripheral Venous Blood Culture - Preliminary Pending Organism 07/13/19 13:44 Blood - Peripheral Venous Blood Culture - Preliminary Pending Organism Laboratory Tests 05/22/19 05/23/19 07/10/19 05:16 05:45 04:51 WBC 7.9 Creatinine 1.9 H 1.4 H Urine Nitrite 07/10/19 07/13/19 07/13/19 04:51 07:30 07:30 WBC 18.0 H Creatinine 1.1 2.4 H Urine Nitrite 07/13/19 07/14/19 07/14/19 14:00 06:20 06:20 WBC 13.0 H Creatinine 2.5 H Urine Nitrite Positive H Imaging - Results Cat Scan: Report Reviewed Problem List - Problems (1) ARF (acute renal failure) Code(s): N17.9 - ACUTE KIDNEY FAILURE, UNSPECIFIED (2) Laceration Code(s): [id number] - Assessment/Plan Current Medications Generic Name Dose Route Start Last Admin Trade Name Freq PRN Reason Stop Dose Admin Apixaban 5 mg 07/13/19 22:00 07/14/19 09:54 Eliquis - PO 5 mg BID RINA Administration Clopidogrel Bisulfate 75 mg 07/14/19 10:00 07/14/19 09:54 Plavix - PO 75 mg DAILY RINA Administration Clotrimazole 1 applic 07/14/19 10:00 07/14/19 09:54 Lotrimin 1% Cream - TP 1 applic DAILY RINA Administration Docusate Sodium 100 mg 07/13/19 14:00 07/14/19 16:13 Colace - PO Not Given TID RIAN Piperacillin Sod/Tazobactam 50 mls @ 100 mls/hr 07/13/19 13:30 07/14/19 16:13 Sod 2.25 gm/ Dextrose IVPB Not Given Q6H-IV COUNT INCLUDES THE [facility] Protocol Insulin Aspart 1 vial 07/13/19 16:30 07/14/19 11:25 Novolog Vial Sliding Scale - SQ Not Given ACHS COUNT INCLUDES THE [facility] Protocol Lactulose 20 gm 07/13/19 15:53 07/13/19 21:58 Cephulac (Oral Use) PO 20 gm QID PRN Administration CONSTIPATION Levothyroxine Sodium 75 mcg 07/14/19 07:00 07/14/19 06:11 Synthroid - PO 75 mcg DAILY@0700 RINA Administration Metoprolol Tartrate 5 mg 07/14/19 10:06 Lopressor Injection - IVPUSH Q4H PRN TACHYCARDIA Sodium Chloride 1 gm 07/14/19 10:00 07/14/19 09:53 Sodium Chloride Tablet - PO 1 gm DAILY RINA Administration Torsemide 20 mg 07/13/19 14:00 07/14/19 16:21 Demadex - PO 20 mg BIDLASIX RINA Administration Impression 1. LIANNA 2. CHF 3. volume overload 4. HTN 5. HLD 6. DM 7. CAD 8. COPD 9. active smoker 10. anasarca 11. hypotension 12. UTI 13. sepsis 14. bacteremia Plan - agree with fluid bolus - of pt is low will need ICU eval for pressors as she has chf and a poor EF - monitor volume status closely - ct chest report reviewed - cont to follow cultures - cont abx - stop salt tabs - repeat labs in am
[2019-07-15] MEDS ORDERED: PIPERACILLIN/TAZOBACTAM 2.25 GM VIAL IVPB ONE ×3 (03:18→11:25)
[2019-07-15] MEDS ORDERED: DEXTROSE 5%-WATER - 50 ML IVPB ONE ×3 (03:18→11:25)
[2019-07-15] MEDS: PIPERACILLIN/TAZOB 2.25 GM 2.25 GM in DEXTROSE 5%-WATER - 50 ML IVPB SCH ×3 (03:24→14:13)
[2019-07-15] MEDS: LEVOTHYROXINE NA 75 MCG TABLET (FP) PO SCH (06:10)
[2019-07-15] MEDS: TORSEMIDE 20 MG TABLET (FP) PO SCH ×2 (06:10→13:52)
[2019-07-15] MEDS: DOCUSATE SODIUM 100 MG CAPSULE (FP) PO SCH ×3 (06:11→23:00)
[2019-07-15] MEDS: INSULIN SLIDING SCALE (NOVOLOG) 1 VIAL SQ SCH ×4 (06:18→23:51)
[2019-07-15 07:01] LABS: HEMATOCRIT 30.5 % (32.4-45.2); HEMOGLOBIN 9.9 GM/dL (10.7-15.3); MCH 27.5 pg (25.7-33.7); MCHC 32.3 g/dl (32.0-36.0); MEAN CELL VOLUME 85.2 fl (80-96); MEAN PLT VOLUME 7.2 fl (7.5-11.1); PLATELET COUNT 282 K/MM3 (134-434); RBC 3.58 M/mm3 (3.60-5.2); WHITE BLOOD COUNT 8.8 K/mm3 (4.0-10.0)
[2019-07-15 07:40] LABS: ALBUMIN 2.1 g/dl (3.4-5.0); BILIRUBIN,TOTAL 1.4 mg/dL (0.2-1); CALCIUM 8.5 mg/dL (8.5-10.1); CREATININE 2.1 mg/dL (0.55-1.3); POTASSIUM 3.9 mmol/L (3.5-5.1); TOT PROT 6.1 g/dl (6.4-8.2)
[2019-07-15] MEDS: SODIUM CHLORIDE 1 GM TABLET PO SCH (09:15)
[2019-07-15] MEDS: CLOPIDOGREL BISULFATE 75 MG TABLET (FP) PO SCH (09:15)
[2019-07-15] MEDS: APIXABAN 5 MG TABLET PO SCH ×2 (09:15→23:11)
[2019-07-15] MEDS: CLOTRIMAZOLE 1% CREAM 15 GM TUBE TP SCH (09:15)
--- NOTE | 2019-07-15 09:41 | EKG ---
Test Reason : Blood Pressure : / mmHG Vent. Rate : 120 BPM Atrial Rate : 084 BPM P-R Int : 000 ms QRS Dur : 138 ms QT Int : 362 ms P-R-T Axes : 000 150 -32 degrees QTc Int : 511 ms ATRIAL FIBRILLATION WITH RAPID VENTRICULAR RESPONSE NON-SPECIFIC INTRA-VENTRICULAR CONDUCTION BLOCK POSSIBLE RIGHT VENTRICULAR HYPERTROPHY CANNOT RULE OUT SEPTAL INFARCT (CITED ON OR BEFORE 13-JUL-2019) POSSIBLE LATERAL INFARCT , AGE UNDETERMINED ABNORMAL ECG Confirmed by Drew Fitzgerald MD ([id number]) on 07/15/2019 9:41:40 AM Referred By: Confirmed By:Drew Fitzgerald MD
--- NOTE | 2019-07-15 10:44 | PN ---
Progress Note, Physician Chief Complaint: Pt A&oxx3; no chest pain or dyspnea. Denies palpitations. (CD interrogation today notes high resting HR 120's pm). History of Present Illness: 64 y.o. black woman with PMH HFrEF(severely reduced LVEF; s/p ICD placement), A- fib: was on metoprolol ER and eliquis; the former was changed to amiodarone on a recent admission), HTN, HLD, CAD, s/p NSTEMI (s/p CABG and PCI), DM type 2, COPD (on home 5L), hypothyroidism,anemia, COPD (unclear whether still smoking cigarettes); s/p lap cholecystectomy 04/2016, s/p right THR,anxiety/ depression, anasarca, elevated LFTs likely due to systolic CHF, overweight, presenting from [facility] after falling out of a wheelchair. The patient says she was being wheeled in the wheelchair, her foot became stuck under the chair and subsequently fell forward. Denies LOC, no incontinence, no tongue biting; however the patient sustained L eyebrow laceration. Noted to have mild L periorbital swelling; no decrease in visual acuity. Denies MOREAU. PAST SURGICAL HISTORY: CABG 2003 x2 stents, ICD, cholecystectomy Social History: Smoking: long-term - Current Medication List Current Medications: Active Medications Apixaban (Eliquis -) 5 mg PO BID [facility] Last Admin: 07/15/19 09:15 Dose: 5 mg Clopidogrel Bisulfate (Plavix -) 75 mg PO DAILY [facility] Last Admin: 07/15/19 09:15 Dose: 75 mg Clotrimazole (Lotrimin 1% Cream -) 1 applic TP DAILY [facility] Last Admin: 07/15/19 09:15 Dose: 1 applic Docusate Sodium (Colace -) 100 mg PO TID [facility] Last Admin: 07/15/19 06:11 Dose: 100 mg Piperacillin Sod/Tazobactam (Sod 2.25 gm/ Dextrose) 50 mls @ 100 mls/hr IVPB Q6H-IV [facility]; Protocol Last Admin: 07/15/19 09:13 Dose: 100 mls/hr Daptomycin 650 mg/ Sodium (Chloride) 50 mls @ 100 mls/hr IVPB 1800 [facility]; Protocol Insulin Aspart (Novolog Vial Sliding Scale -) 1 vial SQ ACHS [facility]; Protocol Last Admin: 07/15/19 06:18 Dose: Not Given Lactulose (Cephulac (Oral Use)) 20 gm PO QID PRN PRN Reason: CONSTIPATION Last Admin: 07/13/19 21:58 Dose: 20 gm Levothyroxine Sodium (Synthroid -) 75 mcg PO DAILY@0700 [facility] Last Admin: 07/15/19 06:10 Dose: 75 mcg Metoprolol Tartrate (Lopressor Injection -) 5 mg IVPUSH Q4H PRN PRN Reason: TACHYCARDIA Sodium Chloride (Sodium Chloride Tablet -) 1 gm PO DAILY [facility] Last Admin: 07/15/19 09:15 Dose: 1 gm Torsemide (Demadex -) 20 mg PO BIDLASIX [facility] Last Admin: 07/15/19 06:10 Dose: 20 mg - Objective Vital Signs: Vital Signs Temperature 97.4 F L 07/15/19 01:00 Pulse Rate 102 H 07/15/19 01:00 Respiratory Rate 20 07/15/19 01:00 Blood Pressure 93/55 L 07/15/19 01:00 O2 Sat by Pulse Oximetry (%) 100 07/14/19 20:35 Constitutional: Yes: Anxious, Obese Eyes: Yes: WNL HENT: Yes: WNL Cardiovascular: Yes: Murmur (2/6 systolic murmur, LSB-->axilla), S1 (varies in intensity), S2 (split) Respiratory: Yes: Diminished, Tachypnea Gastrointestinal: Yes: Abdomen, Obese, Distention (tympanic). No: Tenderness ...Rectal Exam: Yes: Deferred Genitourinary: No: Anuria Breast(s): Yes: WNL Musculoskeletal: Yes: Back Pain, Joint Stiffness, Muscle Pain Extremities: Yes: Cool Edema: Yes Edema: LLE: 1+, RLE: 1+ Peripheral Pulses WNL: No Peripheral Pulses: Left Doralis Pedis: 1+, Right Dorsalis Pedis: 1+ Integumentary: Yes: Venous Stasis Changes Neurological: Yes: Alert, Oriented, Weakness Psychiatric: Yes: Alert, Oriented, Other (snxiety) Labs: CBC, BMP 07/15/19 06:43 07/15/19 06:43 INR, PTT INR 1.80 (0.83-1.09) H 07/10/19 12:38 Abnormal Lab Results 07/15/19 07/15/19 07/15/19 06:43 06:43 06:43 RBC 3.58 L Hgb 9.9 L Hct 30.5 L RDW 18.0 H MPV 7.2 L Sodium 134 L Chloride 97 L BUN 69.0 H Creatinine 2.1 H Total Bilirubin 1.4 H AST 354 H ALT 289 H Alkaline Phosphatase 169 H Ammonia 37.00 H Total Protein 6.1 L Albumin 2.1 L - ....Imaging Chest X-ray: Image Reviewed EKG: Image Reviewed Other: Image Reviewed (telemetry: AF with RVR) Problem List - Problems (1) Head injury due to trauma Assessment/Plan: No facial fractures on CT facial bones. No acute intracranial pathology on CT head. Pt is on apixaban for AF. Consider stopping clopidogrel. Code(s): S09.90XA - UNSPECIFIED INJURY OF HEAD, INITIAL ENCOUNTER Qualifiers: Encounter type: initial encounter Qualified Code(s): S09.90XA - Unspecified injury of head, initial encounter (2) AICD (automatic cardioverter/defibrillator) present Assessment/Plan: ICD interrogation today: resting HR 120's bpm; no shocks had 3 episodes of VT requiring burst pacing (the last was 04/2019); multiple episodes of NSVT that spontaneously terminated. Pt is off amiodarone (elevated LFTs; acue CHF; thyromegaly); Will restart metoprolol tartrate (12.5 mg bid; increase as tolerated) for AF HR control, LV dysfunction, systolic CHF. F/u thyroid imaging, TFTs. Code(s): Z95.810 - PRESENCE OF AUTOMATIC (IMPLANTABLE) CARDIAC DEFIBRILLATOR (3) Acute on chronic renal failure Code(s): N17.9 - ACUTE KIDNEY FAILURE, UNSPECIFIED; N18.9 - CHRONIC KIDNEY DISEASE, UNSPECIFIED (4) Acute on chronic systolic and diastolic heart failure, NYHA class 3 Assessment/Plan: +JVD Elevated BNP. ECHO: severely reduced LVEF; biatrial enlargement. Chest CT: pleural effusion ICD interrogated: AF; periods of NSVT. + MRSA blood cultures. Now off amiodarone (elevated LFTs; acute systolic CHF) Restarted metoprolol ER (AF with RVR; periods of NSVT). Pt has been on lisinopril in the past. If unable to start Entresto due to cost, would restart lisinopril if BP, BUN/Cr, electrolytes allow. Plan to restart spironolactone if tolerates the above, once doses are optimized. F/u TFTs (thyromegaly on CT; on Synthroid). F/u BUN/Cr, electrolytes, daily weight, Is and Os. Progressively worsening multiorgan dysfunction. High risk if procedures (e.g. ANGY) are contemplated. Code(s): I50.43 - ACUTE ON CHRONIC COMBINED SYSTOLIC AND DIASTOLIC HRT FAIL (5) Anasarca Assessment/Plan: Anasarca, elevated LFTs (prior workup indicated the latter likely due to acute/ chronic severe systolic CHF). Code(s): R60.1 - GENERALIZED EDEMA (6) Anemia Code(s): D64.9 - ANEMIA, UNSPECIFIED (7) Diverticulosis Code(s): K57.90 - DVRTCLOS OF INTEST, PART UNSP, W/O PERF OR ABSCESS W/O BLEED (8) Hx of CABG Code(s): Z95.1 - PRESENCE OF AORTOCORONARY BYPASS GRAFT (9) Overweight Code(s): E66.3 - OVERWEIGHT (10) PAF (paroxysmal atrial fibrillation) Assessment/Plan: metoprolol restarted. On apixaban. Consider discontinuing clopidogrel (CABG was in 2003; ?no recent stent; now with fall that caused facial trauma). Code(s): I48.0 - PAROXYSMAL ATRIAL FIBRILLATION (11) Severe pulmonary arterial systolic hypertension Code(s): I27.21 - SECONDARY PULMONARY ARTERIAL HYPERTENSION (12) Cigarette nicotine dependence Code(s): F17.210 - NICOTINE DEPENDENCE, CIGARETTES, UNCOMPLICATED (13) Coronary artery disease Code(s): I25.10 - ATHSCL HEART DISEASE OF [place] CORONARY ARTERY W/O ANG PCTRS (14) Depression Code(s): F32.9 - MAJOR DEPRESSIVE DISORDER, SINGLE EPISODE, UNSPECIFIED (15) Diabetes Code(s): E11.9 - TYPE 2 DIABETES MELLITUS WITHOUT COMPLICATIONS Qualifiers: Diabetes mellitus type: type 2 Diabetes mellitus remote computer terminal operator insulin use: with remote computer terminal operator use Diabetes mellitus complication status: with unspecified complications (16) Hyperlipidemia Code(s): E78.5 - HYPERLIPIDEMIA, UNSPECIFIED Qualifiers: Hyperlipidemia type: pure hypercholesterolemia Qualified Code(s): E78.00 - Pure hypercholesterolemia, unspecified; E78.0 - Pure hypercholesterolemia (17) Peripheral neuropathy Code(s): G62.9 - POLYNEUROPATHY, UNSPECIFIED Qualifiers: Peripheral neuropathy type: polyneuropathy, unspecified Qualified Code(s): G62.9 - Polyneuropathy, unspecified (18) Sleep apnea Code(s): G47.30 - SLEEP APNEA, UNSPECIFIED (19) Status post THR (total hip replacement) Code(s): Z96.649 - PRESENCE OF UNSPECIFIED ARTIFICIAL HIP JOINT (20) Abdominal distension Assessment/Plan: Abdominal Xray: no pneumoperitoneum or pneumotosis; + air in stomach, small bowel, colon. Code(s): R14.0 - ABDOMINAL DISTENSION (GASEOUS) (21) MRSA (methicillin resistant staph aureus) culture positive Assessment/Plan: On Daptomycin. ECHO (transthoracic): severely reduced LVEF; dilated atriae; moderate MR and TR , without mention of marked structural valve abnormality (though TV and PV not well seen); no pericardial effusion. Temp 100 F 07/13/19. WBC, normal initially, dot to 18; now WNL. Code(s): Z22.322 - CARRIER OR SUSPECTED CARRIER OF METHICILLIN RESIS STAPH (22) Renal dysfunction Assessment/Plan: BUN/Cr elevated since 09/2018. Off diuretics; acute/chronic systolic and diastolic CHF. Code(s): N28.9 - DISORDER OF KIDNEY AND URETER, UNSPECIFIED (23) Elevated troponin Code(s): R79.89 - OTHER SPECIFIED ABNORMAL FINDINGS OF BLOOD CHEMISTRY (24) NSVT (nonsustained ventricular tachycardia) Code(s): I47.2 - VENTRICULAR TACHYCARDIA
[2019-07-15] MEDS: METOPROLOL TARTRATE 25 MG TABLET (FP) PO SCH ×2 (11:24→23:11)
--- NOTE | 2019-07-15 15:11 | PN ---
Progress Note, Physician History of Present Illness: Pt seen and examined at bedside. She is more awake and interactive today. - Current Medication List Current Medications: Active Medications Apixaban (Eliquis -) 5 mg PO BID [facility] Last Admin: 07/15/19 09:15 Dose: 5 mg Clopidogrel Bisulfate (Plavix -) 75 mg PO DAILY [facility] Last Admin: 07/15/19 09:15 Dose: 75 mg Clotrimazole (Lotrimin 1% Cream -) 1 applic TP DAILY [facility] Last Admin: 07/15/19 09:15 Dose: 1 applic Docusate Sodium (Colace -) 100 mg PO TID [facility] Last Admin: 07/15/19 13:52 Dose: 100 mg Piperacillin Sod/Tazobactam (Sod 2.25 gm/ Dextrose) 50 mls @ 100 mls/hr IVPB Q6H-IV [facility]; Protocol Last Admin: 07/15/19 14:13 Dose: 100 mls/hr Daptomycin 650 mg/ Sodium (Chloride) 50 mls @ 100 mls/hr IVPB 1800 [facility]; Protocol Insulin Aspart (Novolog Vial Sliding Scale -) 1 vial SQ ACHS [facility]; Protocol Last Admin: 07/15/19 11:23 Dose: Not Given Lactulose (Cephulac (Oral Use)) 20 gm PO QID PRN PRN Reason: CONSTIPATION Last Admin: 07/13/19 21:58 Dose: 20 gm Levothyroxine Sodium (Synthroid -) 75 mcg PO DAILY@0700 [facility] Last Admin: 07/15/19 06:10 Dose: 75 mcg Metoprolol Tartrate (Lopressor Injection -) 5 mg IVPUSH Q4H PRN PRN Reason: TACHYCARDIA Metoprolol Tartrate (Lopressor -) 12.5 mg PO BID [facility] Last Admin: 07/15/19 11:24 Dose: 12.5 mg Sodium Chloride (Sodium Chloride Tablet -) 1 gm PO DAILY [facility] Last Admin: 07/15/19 09:15 Dose: 1 gm Torsemide (Demadex -) 20 mg PO BIDLASIX [facility] Last Admin: 07/15/19 13:52 Dose: 20 mg - Objective Vital Signs: Vital Signs Temperature 97.4 F L 07/15/19 01:00 Pulse Rate 102 H 07/15/19 01:00 Respiratory Rate 20 07/15/19 01:00 Blood Pressure 93/55 L 07/15/19 01:00 O2 Sat by Pulse Oximetry (%) 100 07/14/19 20:35 Constitutional: Yes: Calm Eyes: Yes: Conjunctiva Clear Neck: Yes: Supple Cardiovascular: Yes: S1, S2 Respiratory: Yes: CTA Bilaterally, On Nasal O2 Gastrointestinal: Yes: Soft Genitourinary: Yes: Incontinence Edema: Yes Edema: LLE: 1+, RLE: 1+ Neurological: Yes: Oriented Labs: CBC, BMP 07/15/19 06:43 07/15/19 06:43 INR, PTT INR 1.80 (0.83-1.09) H 07/10/19 12:38 Problem List - Problems (1) ARF (acute renal failure) Code(s): N17.9 - ACUTE KIDNEY FAILURE, UNSPECIFIED (2) Laceration Code(s): [id number] - Assessment/Plan Microbiology 07/13/19 14:00 Urine - Urine - Catheterized Urine Culture - Final NO GROWTH OBTAINED 07/13/19 13:44 Blood - Peripheral Venous Blood Culture - Preliminary Presumptive Mrsa (Pbp2a Pos) 07/13/19 13:44 Blood - Peripheral Venous Blood Culture - Preliminary Presumptive Mrsa (Pbp2a Pos) Current Medications Generic Name Dose Route Start Last Admin Trade Name Freq PRN Reason Stop Dose Admin Apixaban 5 mg 07/13/19 22:00 07/15/19 09:15 Eliquis - PO 5 mg BID [facility] Administration Clopidogrel Bisulfate 75 mg 07/14/19 10:00 07/15/19 09:15 Plavix - PO 75 mg DAILY [facility] Administration Clotrimazole 1 applic 07/14/19 10:00 07/15/19 09:15 Lotrimin 1% Cream - TP 1 applic DAILY [facility] Administration Docusate Sodium 100 mg 07/13/19 14:00 07/15/19 13:52 Colace - PO 100 mg TID [facility] Administration Piperacillin Sod/Tazobactam 50 mls @ 100 mls/hr 07/13/19 13:30 07/15/19 14:13 Sod 2.25 gm/ Dextrose IVPB 100 mls/hr Q6H-IV [facility] Administration Protocol Daptomycin 650 mg/ Sodium 50 mls @ 100 mls/hr 07/15/19 18:00 Chloride IVPB 1800 [facility] Protocol Insulin Aspart 1 vial 07/13/19 16:30 07/15/19 11:23 Novolog Vial Sliding Scale - SQ Not Given ACHS [facility] Protocol Lactulose 20 gm 07/13/19 15:53 07/13/19 21:58 Cephulac (Oral Use) PO 20 gm QID PRN Administration CONSTIPATION Levothyroxine Sodium 75 mcg 07/14/19 07:00 07/15/19 06:10 Synthroid - PO 75 mcg DAILY@0700 [facility] Administration Metoprolol Tartrate 5 mg 07/14/19 10:06 Lopressor Injection - IVPUSH Q4H PRN TACHYCARDIA Metoprolol Tartrate 12.5 mg 07/15/19 11:00 07/15/19 11:24 Lopressor - PO 12.5 mg BID [facility] Administration Sodium Chloride 1 gm 07/14/19 10:00 07/15/19 09:15 Sodium Chloride Tablet - PO 1 gm DAILY [facility] Administration Torsemide 20 mg 07/13/19 14:00 07/15/19 13:52 Demadex - PO 20 mg BIDLASIX [facility] Administration Impression 1. LIANNA 2. CHF 3. volume overload 4. HTN 5. HLD 6. DM 7. CAD 8. COPD 9. active smoker 10. anasarca 11. hypotension 12. UTI 13. sepsis 14. bacteremia Plan - d/c sodium table - repeat labs in am - renal function is improving - monitor bp - cont torsemide if bp permits - cont to follow cultures - cont abx
--- NOTE | 2019-07-15 15:23 | PN ---
Progress Note (short form) - Note Progress Note: quite alert now shouting (apparently her baseline) blood cultures probable MRSA Vital Signs Period Temp Pulse Resp BP Sys/Santoro Pulse Ox Last 24 Hr 97.3 F-97.9 F 102-114 - 82-103/50-63 100 cor-rrr lungs clear abd soft, +fluid ext trace edema right arm is improved left flank is improved still left breast induration CBC, BMP 07/15/19 06:43 07/15/19 06:43 Microbiology 07/13/19 14:00 Urine - Urine - Catheterized Urine Culture - Final NO GROWTH OBTAINED 07/13/19 13:44 Blood - Peripheral Venous Blood Culture - Preliminary Presumptive Mrsa (Pbp2a Pos) 07/13/19 13:44 Blood - Peripheral Venous Blood Culture - Preliminary Presumptive Mrsa (Pbp2a Pos) repeat blood cultures sent today chest ct- d/w radiologist- ICD pocket a/p fever/lethargy MRSA bacteremia ICD ct difficult to evaluate- artifact from icd and no contrast (carmenza)- will get duplex of left arm -d/w dr tran repeat blood cultures sent daptomycin to continue d/c zosyn renal/gi f/u cardiology f/u concern for icd infection/endocarditis given ICD elevated ammonia -history of cardiac cirrhosis d/w cardiology- patient has multiple comorbidities will f/u cultures and continue medical management
--- NOTE | 2019-07-15 16:26 | PN ---
Progress Note, Physician Chief Complaint: AWAKE CONFUSED EVENTS AND NOTES REVIEWED NO ALARMS ON TELEMETRY OVERNIGHT - Current Medication List Current Medications: Active Medications Apixaban (Eliquis -) 5 mg PO BID [facility] Last Admin: 07/15/19 09:15 Dose: 5 mg Clopidogrel Bisulfate (Plavix -) 75 mg PO DAILY [facility] Last Admin: 07/15/19 09:15 Dose: 75 mg Clotrimazole (Lotrimin 1% Cream -) 1 applic TP DAILY [facility] Last Admin: 07/15/19 09:15 Dose: 1 applic Docusate Sodium (Colace -) 100 mg PO TID [facility] Last Admin: 07/15/19 13:52 Dose: 100 mg Daptomycin 650 mg/ Sodium (Chloride) 50 mls @ 100 mls/hr IVPB 1800 [facility]; Protocol Insulin Aspart (Novolog Vial Sliding Scale -) 1 vial SQ ACHS [facility]; Protocol Last Admin: 07/15/19 11:23 Dose: Not Given Lactulose (Cephulac (Oral Use)) 20 gm PO QID PRN PRN Reason: CONSTIPATION Last Admin: 07/13/19 21:58 Dose: 20 gm Levothyroxine Sodium (Synthroid -) 75 mcg PO DAILY@0700 [facility] Last Admin: 07/15/19 06:10 Dose: 75 mcg Metoprolol Tartrate (Lopressor Injection -) 5 mg IVPUSH Q4H PRN PRN Reason: TACHYCARDIA Metoprolol Tartrate (Lopressor -) 12.5 mg PO BID [facility] Last Admin: 07/15/19 11:24 Dose: 12.5 mg Torsemide (Demadex -) 20 mg PO BIDLASIX [facility] Last Admin: 07/15/19 13:52 Dose: 20 mg - Objective Vital Signs: Vital Signs Temperature 97.4 F L 07/15/19 01:00 Pulse Rate 102 H 07/15/19 01:00 Respiratory Rate 20 07/15/19 01:00 Blood Pressure 93/55 L 07/15/19 01:00 O2 Sat by Pulse Oximetry (%) 100 07/14/19 20:35 Constitutional: Yes: Mild Distress Cardiovascular: Yes: Regular Rate and Rhythm Respiratory: Yes: CTA Bilaterally, On Nasal O2 Gastrointestinal: Yes: Soft Genitourinary: Yes: Incontinence Musculoskeletal: Yes: Muscle Weakness Edema: RUE: 2+ Integumentary: Yes: Venous Stasis Changes Wound/Incision: Yes: Well Approximated Neurological: Yes: Confusion, Pre-Existing Deficit Psychiatric: Yes: Other Labs: CBC, BMP 07/15/19 06:43 07/15/19 06:43 INR, PTT INR 1.80 (0.83-1.09) H 07/10/19 12:38 Problem List - Problems (1) Toxic metabolic encephalopathy Code(s): G92 - TOXIC ENCEPHALOPATHY (2) ARF (acute renal failure) Code(s): N17.9 - ACUTE KIDNEY FAILURE, UNSPECIFIED (3) Abdominal distension Code(s): R14.0 - ABDOMINAL DISTENSION (GASEOUS) (4) Head injury due to trauma Code(s): S09.90XA - UNSPECIFIED INJURY OF HEAD, INITIAL ENCOUNTER Qualifiers: Encounter type: initial encounter Qualified Code(s): S09.90XA - Unspecified injury of head, initial encounter (5) Transaminitis Code(s): R74.0 - NONSPEC ELEV OF LEVELS OF TRANSAMNS & LACTIC ACID DEHYDRGNSE (6) AICD (automatic cardioverter/defibrillator) present Code(s): Z95.810 - PRESENCE OF AUTOMATIC (IMPLANTABLE) CARDIAC DEFIBRILLATOR (7) Acute on chronic systolic and diastolic heart failure, NYHA class 3 Code(s): I50.43 - ACUTE ON CHRONIC COMBINED SYSTOLIC AND DIASTOLIC HRT FAIL (8) Anemia Code(s): D64.9 - ANEMIA, UNSPECIFIED (9) Anxiety and depression Code(s): F41.9 - ANXIETY DISORDER, UNSPECIFIED; F32.9 - MAJOR DEPRESSIVE DISORDER, SINGLE EPISODE, UNSPECIFIED Assessment/Plan IV ABX PER ID MRSA LIKELY WITH CULTURES WILL NEED DOPPLER R/0 DVT RUE DVT PROPHYLAXIS DC TELEMETRY CHRONIC ANEMIA AND CRF NO ACUTE CHANGES ADVANCED DIRECTIVES PALLIATIVE CARE CONVERSATION NEEDS TO REVIEWED
[2019-07-15] MEDS ORDERED: PT OWN MED DRAWER 7, Y5N ONE (17:00)
[2019-07-15] MEDS: DAPTOMYCIN 650 MG in SODIUM CHLORIDE 50 ML IVPB SCH (17:42)
--- NOTE | 2019-07-15 18:02 | PN.GI ---
GI Progress Note Subjective: No acute events No abdominal pain - Objective Vital Signs: Vital Signs Temperature 97.4 F L 07/15/19 14:00 Pulse Rate 104 H 07/15/19 14:00 Respiratory Rate 07/15/19 14:00 Blood Pressure 98/59 L 07/15/19 14:00 O2 Sat by Pulse Oximetry (%) 100 07/14/19 20:35 Constitutional: Calm Eyes: Yes: Sclera Icterus Cardiovascular: Yes: Regular Rate and Rhythm Respiratory: Yes: Diminished (at bases bilaterally) Gastrointestinal Inspection: Yes: Distention ...Auscultate: Yes: Normoactive Bowel Sounds ...Palpate: Yes: Soft. No: Tenderness Neurological: Yes: Alert Labs: CBC, BMP 07/15/19 06:43 07/15/19 06:43 INR, PTT INR 1.80 (0.83-1.09) H 07/10/19 12:38 Problem List - Problems (1) Abnormal liver function tests Assessment/Plan: Normal transaminases 05/08 Ducts not dilated on US Was recently started amiodarone, which likely could be contributing to current liver chemistry abnormality CPK was normal Advise: Avoidance of hepatotoxic agents (amiodarone not being given) Optimize cardiac function GI prophylaxis while patient on anticoagulation and antipletelet therapy Monitor LFT's while on daptomycin Code(s): R94.5 - ABNORMAL RESULTS OF LIVER FUNCTION STUDIES (2) Transaminitis Code(s): R74.0 - NONSPEC ELEV OF LEVELS OF TRANSAMNS & LACTIC ACID DEHYDRGNSE
[2019-07-16] MEDS ORDERED: ACETAMINOPHEN 325 MG TABLET (FP) PO ONE (00:15)
[2019-07-16] MEDS: DOCUSATE SODIUM 100 MG CAPSULE (FP) PO SCH ×3 (06:19→21:41)
[2019-07-16] MEDS: TORSEMIDE 20 MG TABLET (FP) PO SCH ×2 (06:20→14:42)
[2019-07-16] MEDS: LEVOTHYROXINE NA 75 MCG TABLET (FP) PO SCH (06:20)
[2019-07-16] MEDS: INSULIN SLIDING SCALE (NOVOLOG) 1 VIAL SQ SCH ×4 (06:20→21:46)
[2019-07-16 08:12] LABS: HEMATOCRIT 29.5 % (32.4-45.2); HEMOGLOBIN 9.5 GM/dL (10.7-15.3); MCH 27.7 pg (25.7-33.7); MCHC 32.2 g/dl (32.0-36.0); MEAN CELL VOLUME 85.8 fl (80-96); MEAN PLT VOLUME 7.4 fl (7.5-11.1); PLATELET COUNT 253 K/MM3 (134-434); RBC 3.44 M/mm3 (3.60-5.2); RDW 18.5 % (11.6-15.6); WHITE BLOOD COUNT 7.6 K/mm3 (4.0-10.0)
[2019-07-16 09:08] LABS: ALBUMIN 2.1 g/dl (3.4-5.0); BILIRUBIN,TOTAL 1.5 mg/dL (0.2-1); BLOOD UREA NITROGEN 57.5 mg/dL (7-18); CALCIUM 8.1 mg/dL (8.5-10.1); CREATININE 1.4 mg/dL (0.55-1.3); POTASSIUM 3.2 mmol/L (3.5-5.1); TOT PROT 6.1 g/dl (6.4-8.2)
[2019-07-16] MEDS: CLOTRIMAZOLE 1% CREAM 15 GM TUBE TP SCH (09:59)
[2019-07-16] MEDS: APIXABAN 5 MG TABLET PO SCH ×2 (09:59→21:41)
[2019-07-16] MEDS: PANTOPRAZOLE 20 MG TABLET PO SCH (09:59)
[2019-07-16] MEDS: CLOPIDOGREL BISULFATE 75 MG TABLET (FP) PO SCH (09:59)
[2019-07-16] MEDS: METOPROLOL TARTRATE 25 MG TABLET (FP) PO SCH ×2 (10:00→21:45)
[2019-07-16] MEDS ORDERED: POTASSIUM CHLORIDE TABS 20 MEQ TABLET.ER (FP) PO ONE (11:30)
--- NOTE | 2019-07-16 12:36 | PN ---
Progress Note, Physician History of Present Illness: 64 y.o. black woman with PMH HFrEF(severely reduced LVEF; s/p ICD placement), A- fib: was on metoprolol ER and eliquis; the former was changed to amiodarone on a recent admission), HTN, HLD, CAD, s/p NSTEMI (s/p CABG and PCI), DM type 2, COPD (on home 02 5L), hypothyroidism,anemia, overweight, presenting from [facility] after falling out of a wheelchair. The patient says she was being wheeled in the wheelchair, her foot became stuck under the chair and subsequently fell forward. Denies LOC, no incontinence, no tongue biting; however the patient sustained L eyebrow laceration. Noted to have mild L periorbital swelling; no decrease in visual acuity. Denies MOREAU. - Current Medication List Current Medications: Active Medications Apixaban (Eliquis -) 5 mg PO BID [facility] Last Admin: 07/16/19 09:59 Dose: 5 mg Clopidogrel Bisulfate (Plavix -) 75 mg PO DAILY [facility] Last Admin: 07/16/19 09:59 Dose: 75 mg Clotrimazole (Lotrimin 1% Cream -) 1 applic TP DAILY [facility] Last Admin: 07/16/19 09:59 Dose: 1 applic Docusate Sodium (Colace -) 100 mg PO TID [facility] Last Admin: 07/16/19 06:19 Dose: 100 mg Daptomycin 650 mg/ Sodium (Chloride) 50 mls @ 100 mls/hr IVPB 1800 [facility]; Protocol Last Admin: 07/15/19 17:42 Dose: 100 mls/hr Insulin Aspart (Novolog Vial Sliding Scale -) 1 vial SQ ACHS [facility]; Protocol Last Admin: 07/16/19 11:52 Dose: Not Given Lactulose (Cephulac (Oral Use)) 20 gm PO QID PRN PRN Reason: CONSTIPATION Last Admin: 07/13/19 21:58 Dose: 20 gm Levothyroxine Sodium (Synthroid -) 75 mcg PO DAILY@0700 [facility] Last Admin: 07/16/19 06:20 Dose: 75 mcg Metoprolol Tartrate (Lopressor Injection -) 5 mg IVPUSH Q4H PRN PRN Reason: TACHYCARDIA Metoprolol Tartrate (Lopressor -) 12.5 mg PO BID [facility] Last Admin: 07/16/19 10:00 Dose: 12.5 mg Pantoprazole Sodium (Protonix -) 20 mg PO DAILY [facility] Last Admin: 07/16/19 09:59 Dose: 20 mg Torsemide (Demadex -) 20 mg PO BIDLASIX [facility] Last Admin: 07/16/19 06:20 Dose: 20 mg - Objective Vital Signs: Vital Signs Temperature 97.9 F 07/16/19 10:00 Pulse Rate 95 H 07/16/19 10:00 Respiratory Rate 20 07/16/19 10:00 Blood Pressure 106/75 07/16/19 10:00 O2 Sat by Pulse Oximetry (%) 96 07/16/19 10:00 Eyes: Yes: WNL, Conjunctiva Clear, EOM Intact HENT: Yes: WNL, Atraumatic, Normocephalic Neck: Yes: WNL, Supple, Trachea Midline Cardiovascular: Yes: WNL, Regular Rate and Rhythm Respiratory: Yes: Diminished Gastrointestinal: Yes: WNL, Normal Bowel Sounds Genitourinary: Yes: WNL Musculoskeletal: Yes: WNL Extremities: Yes: WNL Edema: Yes Integumentary: Yes: WNL ...Motor Strength: WNL Psychiatric: Yes: WNL Labs: CBC, BMP 07/16/19 06:38 07/16/19 06:38 INR, PTT INR 1.80 (0.83-1.09) H 07/10/19 12:38 Problem List - Problems (1) ARF (acute renal failure) Code(s): N17.9 - ACUTE KIDNEY FAILURE, UNSPECIFIED (2) Abdominal distension Code(s): R14.0 - ABDOMINAL DISTENSION (GASEOUS) (3) Head injury due to trauma Code(s): S09.90XA - UNSPECIFIED INJURY OF HEAD, INITIAL ENCOUNTER Qualifiers: Encounter type: initial encounter Qualified Code(s): S09.90XA - Unspecified injury of head, initial encounter (4) Laceration Code(s): [id number] - (5) Lethargy Code(s): R53.83 - OTHER FATIGUE (6) Leukocytosis Code(s): D72.829 - ELEVATED WHITE BLOOD CELL COUNT, UNSPECIFIED (7) Transaminitis Code(s): R74.0 - NONSPEC ELEV OF LEVELS OF TRANSAMNS & LACTIC ACID DEHYDRGNSE (8) AICD (automatic cardioverter/defibrillator) present Code(s): Z95.810 - PRESENCE OF AUTOMATIC (IMPLANTABLE) CARDIAC DEFIBRILLATOR (9) LIANNA (acute kidney injury) Code(s): N17.9 - ACUTE KIDNEY FAILURE, UNSPECIFIED (10) Acute on chronic renal failure Code(s): N17.9 - ACUTE KIDNEY FAILURE, UNSPECIFIED; N18.9 - CHRONIC KIDNEY DISEASE, UNSPECIFIED (11) Acute on chronic systolic and diastolic heart failure, NYHA class 3 Code(s): I50.43 - ACUTE ON CHRONIC COMBINED SYSTOLIC AND DIASTOLIC HRT FAIL (12) Anasarca Code(s): R60.1 - GENERALIZED EDEMA (13) Anemia Code(s): D64.9 - ANEMIA, UNSPECIFIED (14) Anxiety and depression Code(s): F41.9 - ANXIETY DISORDER, UNSPECIFIED; F32.9 - MAJOR DEPRESSIVE DISORDER, SINGLE EPISODE, UNSPECIFIED (15) Ascites Code(s): R18.8 - OTHER ASCITES Qualifiers: Ascites type: other type Qualified Code(s): R18.8 - Other ascites (16) Bacteremia Code(s): R78.81 - BACTEREMIA (17) CHF exacerbation Code(s): I50.9 - HEART FAILURE, UNSPECIFIED Qualifiers: Heart failure type: unspecified Qualified Code(s): I50.9 - Heart failure, unspecified (18) Chest pain of uncertain etiology Code(s): R07.89 - OTHER CHEST PAIN (19) Chronic abdominal pain Code(s): R10.9 - UNSPECIFIED ABDOMINAL PAIN; G89.29 - OTHER CHRONIC PAIN (20) Diverticulosis Code(s): K57.90 - DVRTCLOS OF INTEST, PART UNSP, W/O PERF OR ABSCESS W/O BLEED (21) Facial swelling Code(s): R22.0 - LOCALIZED SWELLING, MASS AND LUMP, HEAD (22) Fall Code(s): W19.XXXA - UNSPECIFIED FALL, INITIAL ENCOUNTER (23) Hepatopathy Code(s): K76.9 - LIVER DISEASE, UNSPECIFIED (24) Hx of CABG Code(s): Z95.1 - PRESENCE OF AORTOCORONARY BYPASS GRAFT (25) Hypokalemia Code(s): E87.6 - HYPOKALEMIA (26) Hypomagnesemia Code(s): E83.42 - HYPOMAGNESEMIA (27) Hypotension Code(s): I95.9 - HYPOTENSION, UNSPECIFIED (28) Noncompliance with therapeutic plan Code(s): Z91.11 - PATIENT'S NONCOMPLIANCE WITH DIETARY REGIMEN (29) Obesity Code(s): E66.9 - OBESITY, UNSPECIFIED (30) Overweight Code(s): E66.3 - OVERWEIGHT (31) PAF (paroxysmal atrial fibrillation) Code(s): I48.0 - PAROXYSMAL ATRIAL FIBRILLATION (32) Rapid atrial fibrillation Code(s): I48.91 - UNSPECIFIED ATRIAL FIBRILLATION (33) Sepsis Code(s): A41.9 - SEPSIS, UNSPECIFIED ORGANISM (34) Severe pulmonary arterial systolic hypertension Code(s): I27.21 - SECONDARY PULMONARY ARTERIAL HYPERTENSION (35) Shortness of breath Code(s): R06.02 - SHORTNESS OF BREATH (36) Smokes cigarettes Code(s): F17.210 - NICOTINE DEPENDENCE, CIGARETTES, UNCOMPLICATED (37) Subendocardial ischemia Code(s): I24.8 - OTHER FORMS OF ACUTE ISCHEMIC HEART DISEASE (38) Abdominal pain Code(s): R10.9 - UNSPECIFIED ABDOMINAL PAIN Qualifiers: Abdominal location: lower abdomen, unspecified Qualified Code(s): R10.30 - Lower abdominal pain, unspecified (39) Acute combined systolic and diastolic ACC/AHA stage C congestive heart failure Code(s): I50.41 - ACUTE COMBINED SYSTOLIC AND DIASTOLIC (CONGESTIVE) HRT FAIL (40) CHF (congestive heart failure) Code(s): I50.9 - HEART FAILURE, UNSPECIFIED Qualifiers: Heart failure type: unspecified Heart failure chronicity: acute on chronic Qualified Code(s): I50.9 - Heart failure, unspecified (41) Chest pain Code(s): R07.9 - CHEST PAIN, UNSPECIFIED Qualifiers: Chest pain type: unspecified Qualified Code(s): R07.9 - Chest pain, unspecified (42) Chronic systolic congestive heart failure Code(s): I50.22 - CHRONIC SYSTOLIC (CONGESTIVE) HEART FAILURE (43) Cigarette nicotine dependence Code(s): F17.210 - NICOTINE DEPENDENCE, CIGARETTES, UNCOMPLICATED (44) Coronary artery disease Code(s): I25.10 - ATHSCL HEART DISEASE OF [place] CORONARY ARTERY W/O ANG PCTRS (45) Depression Code(s): F32.9 - MAJOR DEPRESSIVE DISORDER, SINGLE EPISODE, UNSPECIFIED (46) Diabetes Code(s): E11.9 - TYPE 2 DIABETES MELLITUS WITHOUT COMPLICATIONS Qualifiers: Diabetes mellitus type: type 2 Diabetes mellitus manager long term care insulin use: with usp use Diabetes mellitus complication status: with unspecified complications (47) Dyspepsia Code(s): K30 - FUNCTIONAL DYSPEPSIA (48) Fatty liver Code(s): K76.0 - FATTY (CHANGE OF) LIVER, NOT ELSEWHERE CLASSIFIED (49) Hyperbilirubinemia Code(s): E80.6 - OTHER DISORDERS OF BILIRUBIN METABOLISM (50) Hyperlipidemia Code(s): E78.5 - HYPERLIPIDEMIA, UNSPECIFIED Qualifiers: Hyperlipidemia type: pure hypercholesterolemia Qualified Code(s): E78.00 - Pure hypercholesterolemia, unspecified; E78.0 - Pure hypercholesterolemia (51) Hypertension Code(s): I10 - ESSENTIAL (PRIMARY) HYPERTENSION Qualifiers: Hypertension type: essential hypertension Qualified Code(s): I10 - Essential (primary) hypertension (52) Hypothyroidism Code(s): E03.9 - HYPOTHYROIDISM, UNSPECIFIED (53) ICD (implantable cardioverter-defibrillator) in place Code(s): Z95.810 - PRESENCE OF AUTOMATIC (IMPLANTABLE) CARDIAC DEFIBRILLATOR (54) Lower extremity edema Code(s): R60.0 - LOCALIZED EDEMA (55) NSVT (nonsustained ventricular tachycardia) Code(s): I47.2 - VENTRICULAR TACHYCARDIA (56) Noncompliance with medication regimen Code(s): Z91.14 - PATIENT'S OTHER NONCOMPLIANCE WITH MEDICATION REGIMEN (57) Peripheral neuropathy Code(s): G62.9 - POLYNEUROPATHY, UNSPECIFIED Qualifiers: Peripheral neuropathy type: polyneuropathy, unspecified Qualified Code(s): G62.9 - Polyneuropathy, unspecified (59) Sleep apnea Code(s): G47.30 - SLEEP APNEA, UNSPECIFIED (60) Sphincter of Oddi dysfunction Code(s): K83.4 - SPASM OF SPHINCTER OF ODDI (61) Status post THR (total hip replacement) Code(s): Z96.649 - PRESENCE OF UNSPECIFIED ARTIFICIAL HIP JOINT (62) Cardiac cirrhosis Code(s): K76.1 - CHRONIC PASSIVE CONGESTION OF LIVER Assessment/Plan - Problems (1) Head injury due to trauma Assessment/Plan: No facial fractures on CT facial bones. No acute intracranial pathology on CT head. Pt is on apixaban for AF. Consider stopping clopidogrel. Code(s): S09.90XA - UNSPECIFIED INJURY OF HEAD, INITIAL ENCOUNTER Qualifiers: Encounter type: initial encounter Qualified Code(s): S09.90XA - Unspecified injury of head, initial encounter (2) AICD (automatic cardioverter/defibrillator) present Assessment/Plan: ICD interrogation today: resting HR 120's bpm; no shocks had 3 episodes of VT requiring burst pacing (the last was 04/2019); multiple episodes of NSVT that spontaneously terminated. Pt is off amiodarone (elevated LFTs; acue CHF; thyromegaly); Will restart metoprolol tartrate (12.5 mg bid; increase as tolerated) for AF HR control, LV dysfunction, systolic CHF. F/u thyroid imaging, TFTs. Code(s): Z95.810 - PRESENCE OF AUTOMATIC (IMPLANTABLE) CARDIAC DEFIBRILLATOR (3) Acute on chronic renal failure Code(s): N17.9 - ACUTE KIDNEY FAILURE, UNSPECIFIED; N18.9 - CHRONIC KIDNEY DISEASE, UNSPECIFIED (4) Acute on chronic systolic and diastolic heart failure, NYHA class 3 Assessment/Plan: +JVD Elevated BNP. ECHO: severely reduced LVEF; biatrial enlargement. Chest CT: pleural effusion ICD interrogated: AF; periods of NSVT. + MRSA blood cultures. Now off amiodarone (elevated LFTs; acute systolic CHF) Restarted metoprolol ER (AF with RVR; periods of NSVT). Pt has been on lisinopril in the past. If unable to start Entresto due to cost, would restart lisinopril if BP, BUN/Cr, electrolytes allow. Plan to restart spironolactone if tolerates the above, once doses are optimized. F/u TFTs (thyromegaly on CT; on Synthroid). F/u BUN/Cr, electrolytes, daily weight, Is and Os. Progressively worsening multiorgan dysfunction. High risk if procedures (e.g. ANGY) are contemplated. Code(s): I50.43 - ACUTE ON CHRONIC COMBINED SYSTOLIC AND DIASTOLIC HRT FAIL (5) Anasarca Assessment/Plan: Anasarca, elevated LFTs (prior workup indicated the latter likely due to acute/ chronic severe systolic CHF). Code(s): R60.1 - GENERALIZED EDEMA (6) Anemia Code(s): D64.9 - ANEMIA, UNSPECIFIED (7) Diverticulosis Code(s): K57.90 - DVRTCLOS OF INTEST, PART UNSP, W/O PERF OR ABSCESS W/O BLEED (8) Hx of CABG Code(s): Z95.1 - PRESENCE OF AORTOCORONARY BYPASS GRAFT (9) Overweight Code(s): E66.3 - OVERWEIGHT (10) PAF (paroxysmal atrial fibrillation) Assessment/Plan: metoprolol restarted. On apixaban. Consider discontinuing clopidogrel (CABG was in 2003; ?no recent stent; now with fall that caused facial trauma). Code(s): I48.0 - PAROXYSMAL ATRIAL FIBRILLATION (11) Severe pulmonary arterial systolic hypertension Code(s): I27.21 - SECONDARY PULMONARY ARTERIAL HYPERTENSION (12) Cigarette nicotine dependence Code(s): F17.210 - NICOTINE DEPENDENCE, CIGARETTES, UNCOMPLICATED (13) Coronary artery disease Code(s): I25.10 - ATHSCL HEART DISEASE OF [place] CORONARY ARTERY W/O ANG PCTRS (14) Depression Code(s): F32.9 - MAJOR DEPRESSIVE DISORDER, SINGLE EPISODE, UNSPECIFIED (15) Diabetes Code(s): E11.9 - TYPE 2 DIABETES MELLITUS WITHOUT COMPLICATIONS Qualifiers: Diabetes mellitus type: type 2 Diabetes mellitus usp insulin use: with manager long term care use Diabetes mellitus complication status: with unspecified complications (16) Hyperlipidemia Code(s): E78.5 - HYPERLIPIDEMIA, UNSPECIFIED Qualifiers: Hyperlipidemia type: pure hypercholesterolemia Qualified Code(s): E78.00 - Pure hypercholesterolemia, unspecified; E78.0 - Pure hypercholesterolemia (17) Peripheral neuropathy Code(s): G62.9 - POLYNEUROPATHY, UNSPECIFIED Qualifiers: Peripheral neuropathy type: polyneuropathy, unspecified Qualified Code(s): G62.9 - Polyneuropathy, unspecified (18) Sleep apnea Code(s): G47.30 - SLEEP APNEA, UNSPECIFIED (19) Status post THR (total hip replacement) Code(s): Z96.649 - PRESENCE OF UNSPECIFIED ARTIFICIAL HIP JOINT (20) Abdominal distension Assessment/Plan: Abdominal Xray: no pneumoperitoneum or pneumotosis; + air in stomach, small bowel, colon. Code(s): R14.0 - ABDOMINAL DISTENSION (GASEOUS) (21) MRSA (methicillin resistant staph aureus) culture positive Assessment/Plan: On Daptomycin. ECHO (transthoracic): severely reduced LVEF; dilated atriae; moderate MR and TR , without mention of marked structural valve abnormality (though TV and PV not well seen); no pericardial effusion. Temp 100 F 07/13/19. WBC, normal initially, dot to 18; now WNL. Code(s): Z22.322 - CARRIER OR SUSPECTED CARRIER OF METHICILLIN RESIS STAPH (22) Renal dysfunction Assessment/Plan: BUN/Cr elevated since 09/2018. Off diuretics; acute/chronic systolic and diastolic CHF. Code(s): N28.9 - DISORDER OF KIDNEY AND URETER, UNSPECIFIED (23) Elevated troponin Code(s): R79.89 - OTHER SPECIFIED ABNORMAL FINDINGS OF BLOOD CHEMISTRY (24) NSVT (nonsustained ventricular tachycardia) Code(s): I47.2 - VENTRICULAR TACHYCARDIA
--- NOTE | 2019-07-16 13:29 | PN ---
Progress Note, Physician History of Present Illness: Pt seen and examined at bedside. She is more awake and alert. She denies shortness of breath. - Current Medication List Current Medications: Active Medications Apixaban (Eliquis -) 5 mg PO BID [facility] Last Admin: 07/16/19 09:59 Dose: 5 mg Clopidogrel Bisulfate (Plavix -) 75 mg PO DAILY [facility] Last Admin: 07/16/19 09:59 Dose: 75 mg Clotrimazole (Lotrimin 1% Cream -) 1 applic TP DAILY [facility] Last Admin: 07/16/19 09:59 Dose: 1 applic Docusate Sodium (Colace -) 100 mg PO TID [facility] Last Admin: 07/16/19 06:19 Dose: 100 mg Daptomycin 650 mg/ Sodium (Chloride) 50 mls @ 100 mls/hr IVPB 1800 [facility]; Protocol Last Admin: 07/15/19 17:42 Dose: 100 mls/hr Insulin Aspart (Novolog Vial Sliding Scale -) 1 vial SQ ACHS [facility]; Protocol Last Admin: 07/16/19 11:52 Dose: Not Given Lactulose (Cephulac (Oral Use)) 20 gm PO QID PRN PRN Reason: CONSTIPATION Last Admin: 07/13/19 21:58 Dose: 20 gm Levothyroxine Sodium (Synthroid -) 75 mcg PO DAILY@0700 [facility] Last Admin: 07/16/19 06:20 Dose: 75 mcg Metoprolol Tartrate (Lopressor Injection -) 5 mg IVPUSH Q4H PRN PRN Reason: TACHYCARDIA Metoprolol Tartrate (Lopressor -) 12.5 mg PO BID [facility] Last Admin: 07/16/19 10:00 Dose: 12.5 mg Pantoprazole Sodium (Protonix -) 20 mg PO DAILY [facility] Last Admin: 07/16/19 09:59 Dose: 20 mg Torsemide (Demadex -) 20 mg PO BIDLASIX [facility] Last Admin: 07/16/19 06:20 Dose: 20 mg - Objective Vital Signs: Vital Signs Temperature 97.9 F 07/16/19 10:00 Pulse Rate 95 H 07/16/19 10:00 Respiratory Rate 20 07/16/19 10:00 Blood Pressure 106/75 07/16/19 10:00 O2 Sat by Pulse Oximetry (%) 96 07/16/19 10:00 Constitutional: Yes: Calm Eyes: Yes: Conjunctiva Clear HENT: Yes: Atraumatic Neck: Yes: Supple Cardiovascular: Yes: S1, S2 Respiratory: Yes: CTA Bilaterally, On Nasal O2 Gastrointestinal: Yes: Soft Genitourinary: Yes: Incontinence Musculoskeletal: Yes: WNL Edema: Yes Edema: LLE: 1+, RLE: 1+ Neurological: Yes: Oriented Labs: CBC, BMP 07/16/19 06:38 07/16/19 06:38 INR, PTT INR 1.80 (0.83-1.09) H 07/10/19 12:38 Problem List - Problems (1) ARF (acute renal failure) Code(s): N17.9 - ACUTE KIDNEY FAILURE, UNSPECIFIED (2) Laceration Code(s): NQS2005 - Assessment/Plan Current Medications Generic Name Dose Route Start Last Admin Trade Name Freq PRN Reason Stop Dose Admin Apixaban 5 mg 07/13/19 22:00 07/16/19 09:59 Eliquis - PO 5 mg BID [facility] Administration Clopidogrel Bisulfate 75 mg 07/14/19 10:00 07/16/19 09:59 Plavix - PO 75 mg DAILY [facility] Administration Clotrimazole 1 applic 07/14/19 10:00 07/16/19 09:59 Lotrimin 1% Cream - TP 1 applic DAILY [facility] Administration Docusate Sodium 100 mg 07/13/19 14:00 07/16/19 06:19 Colace - PO 100 mg TID [facility] Administration Daptomycin 650 mg/ Sodium 50 mls @ 100 mls/hr 07/15/19 18:00 07/15/19 17:42 Chloride IVPB 100 mls/hr 1800 [facility] Administration Protocol Insulin Aspart 1 vial 07/13/19 16:30 07/16/19 11:52 Novolog Vial Sliding Scale - SQ Not Given ACHS [facility] Protocol Lactulose 20 gm 07/13/19 15:53 07/13/19 21:58 Cephulac (Oral Use) PO 20 gm QID PRN Administration CONSTIPATION Levothyroxine Sodium 75 mcg 07/14/19 07:00 07/16/19 06:20 Synthroid - PO 75 mcg DAILY@0700 [facility] Administration Metoprolol Tartrate 5 mg 07/14/19 10:06 Lopressor Injection - IVPUSH Q4H PRN TACHYCARDIA Metoprolol Tartrate 12.5 mg 07/15/19 11:00 07/16/19 10:00 Lopressor - PO 12.5 mg BID [facility] Administration Pantoprazole Sodium 20 mg 07/16/19 10:00 07/16/19 09:59 Protonix - PO 20 mg DAILY [facility] Administration Torsemide 20 mg 07/13/19 14:00 07/16/19 06:20 Demadex - PO 20 mg BIDLASIX [facility] Administration Impression 1. LIANNA 2. CHF 3. volume overload 4. HTN 5. HLD 6. DM 7. CAD 8. COPD 9. active smoker 10. anasarca 11. hypotension 12. UTI 13. sepsis 14. bacteremia Plan - renal function improving - replace potassium - cont diuretics - repeat labs in am - cont to follow cultures - cont abx
--- NOTE | 2019-07-16 13:29 | PN.GI ---
GI Progress Note Subjective: No abdominal complaints. No pruritus. - Objective Vital Signs: Vital Signs Temperature 97.9 F 07/16/19 10:00 Pulse Rate 95 H 07/16/19 10:00 Respiratory Rate 07/16/19 10:00 Blood Pressure 106/75 07/16/19 10:00 O2 Sat by Pulse Oximetry (%) 96 07/16/19 10:00 Eyes: No: Sclera Icterus Gastrointestinal Inspection: Yes: Distention ...Palpate: Yes: Soft. No: Hepatomegaly, Splenomegaly, Tenderness Labs: CBC, BMP 07/16/19 06:38 07/16/19 06:38 INR, PTT INR 1.80 (0.83-1.09) H 07/10/19 12:38 Assessment/Plan Low albumin, ALT rising With rising transaminases, low albumin, and elevated INR, concerning for acute on chronic injury to liver in setting of fall. Suggest Abdominal US with Doppler Viral hepatitis serologies (inclduing delta agent/Hep D) Follow INR, total bilirubin
--- NOTE | 2019-07-16 14:20 | PN ---
Progress Note (short form) - Note Progress Note: quite alert now no complaints Vital Signs Period Temp Pulse Resp BP Sys/Santoro Pulse Ox Last 24 Hr 97.3 F-98.1 F 84-96 20-20 93-132/57-75 96-100 cor-rrr lungs decrsed bs at bases abd soft,nt ext +edema +moran CBC, BMP 07/16/19 06:38 07/16/19 06:38 Microbiology 07/13/19 13:44 Blood - Peripheral Venous Blood Culture - Preliminary Mr S Aureus Presumptive Ps Aeruginosa 07/13/19 13:44 Blood - Peripheral Venous Blood Culture - Final Mr S Aureus 07/15/19 06:43 Blood - Peripheral Venous Blood Culture - Preliminary NO GROWTH OBTAINED AFTER 24 HOURS, INCUBATION TO CONTINUE FOR 4 DAYS. 07/15/19 06:43 Blood - Peripheral Venous Blood Culture - Preliminary NO GROWTH OBTAINED AFTER 24 HOURS, INCUBATION TO CONTINUE FOR 4 DAYS. 07/13/19 14:00 Urine - Urine - Catheterized Urine Culture - Final NO GROWTH OBTAINED a/p fever/lethargy MRSA bacteremia ICD yaron ct difficult to evaluate- artifact from icd and no contrast (carmenza)- will get duplex of left arm -negative for clot repeat blood cultures sent daptomycin to continue restart cefepime lfts, renal function improved renal/gi f/u cardiology f/u concern for icd infection/endocarditis given ICD elevated ammonia -history of cardiac cirrhosis urinary retention- moran replaced d/w cardiology- patient has multiple comorbidities will f/u cultures and continue medical management
--- NOTE | 2019-07-16 15:20 | PN ---
Progress Note, Physician Chief Complaint: s/p mechanical fall at [facility] History of Present Illness: 64 year old female with PMH CHF, afib, dm2, htn, hld, cad, copd (on home oxygen?), ckd presented to the ER s/p fall, with large hematoma. she is being treated for urinary retention, anemia, ckd, elevated lft, left breast ma, icd infection? being seen by neurosurgery, cardiology, ID , GI, and renal. - Current Medication List Current Medications: Active Medications Apixaban (Eliquis -) 5 mg PO BID [facility] Last Admin: 07/16/19 09:59 Dose: 5 mg Clopidogrel Bisulfate (Plavix -) 75 mg PO DAILY [facility] Last Admin: 07/16/19 09:59 Dose: 75 mg Clotrimazole (Lotrimin 1% Cream -) 1 applic TP DAILY [facility] Last Admin: 07/16/19 09:59 Dose: 1 applic Docusate Sodium (Colace -) 100 mg PO TID [facility] Last Admin: 07/16/19 14:42 Dose: 100 mg Daptomycin 650 mg/ Sodium (Chloride) 50 mls @ 100 mls/hr IVPB 1800 [facility]; Protocol Last Admin: 07/15/19 17:42 Dose: 100 mls/hr Cefepime HCl 2 gm/ Dextrose 100 mls @ 100 mls/hr IVPB BID [facility]; Protocol Insulin Aspart (Novolog Vial Sliding Scale -) 1 vial SQ ACHS [facility]; Protocol Last Admin: 07/16/19 11:52 Dose: Not Given Lactulose (Cephulac (Oral Use)) 20 gm PO QID PRN PRN Reason: CONSTIPATION Last Admin: 07/13/19 21:58 Dose: 20 gm Levothyroxine Sodium (Synthroid -) 75 mcg PO DAILY@0700 [facility] Last Admin: 07/16/19 06:20 Dose: 75 mcg Metoprolol Tartrate (Lopressor Injection -) 5 mg IVPUSH Q4H PRN PRN Reason: TACHYCARDIA Metoprolol Tartrate (Lopressor -) 12.5 mg PO BID [facility] Last Admin: 07/16/19 10:00 Dose: 12.5 mg Pantoprazole Sodium (Protonix -) 20 mg PO DAILY [facility] Last Admin: 07/16/19 09:59 Dose: 20 mg Torsemide (Demadex -) 20 mg PO BIDLASIX [facility] Last Admin: 07/16/19 14:42 Dose: 20 mg - Objective Vital Signs: Vital Signs Temperature 97.9 F 07/16/19 10:00 Pulse Rate 95 H 07/16/19 10:00 Respiratory Rate 20 07/16/19 10:00 Blood Pressure 106/75 07/16/19 10:00 O2 Sat by Pulse Oximetry (%) 96 07/16/19 10:00 Constitutional: Yes: Well Nourished, No Distress Eyes: Yes: Other (sutures to left periorbital area) HENT: Yes: Normocephalic Neck: Yes: Supple Cardiovascular: Yes: Regular Rate and Rhythm Respiratory: Yes: Diminished Gastrointestinal: Yes: Normal Bowel Sounds, Distention Genitourinary: Yes: Moran Present Musculoskeletal: Yes: Muscle Weakness Extremities: Yes: Erythema, Other (ecchymosis) Integumentary: Yes: Erythema Wound/Incision: Yes: Open to air Neurological: Yes: Alert Labs: CBC, BMP 07/16/19 06:38 07/16/19 06:38 INR, PTT INR 1.80 (0.83-1.09) H 07/10/19 12:38 Problem List - Problems (1) Head injury due to trauma Assessment/Plan: [address] negative for bleed on anticoagulation being followed by PT Code(s): S09.90XA - UNSPECIFIED INJURY OF HEAD, INITIAL ENCOUNTER Qualifiers: Encounter type: initial encounter Qualified Code(s): S09.90XA - Unspecified injury of head, initial encounter (2) Fall Assessment/Plan: PT eval, plan for back to [facility] when stable Code(s): W19.XXXA - UNSPECIFIED FALL, INITIAL ENCOUNTER (3) Coronary artery disease Assessment/Plan: cont home meds Code(s): I25.10 - ATHSCL HEART DISEASE OF [place] CORONARY ARTERY W/O ANG PCTRS (4) Diabetes Assessment/Plan: cont home meds monitor sugar continue sliding scale Code(s): E11.9 - TYPE 2 DIABETES MELLITUS WITHOUT COMPLICATIONS Qualifiers: Diabetes mellitus type: type 2 Diabetes mellitus jail insulin use: with buttermaker continuous churn use Diabetes mellitus complication status: with unspecified complications (5) Hyperlipidemia Assessment/Plan: cont home meds Code(s): E78.5 - HYPERLIPIDEMIA, UNSPECIFIED Qualifiers: Hyperlipidemia type: pure hypercholesterolemia Qualified Code(s): E78.00 - Pure hypercholesterolemia, unspecified; E78.0 - Pure hypercholesterolemia (6) Hypertension Assessment/Plan: cont home meds Code(s): I10 - ESSENTIAL (PRIMARY) HYPERTENSION Qualifiers: Hypertension type: essential hypertension Qualified Code(s): I10 - Essential (primary) hypertension (7) Hypothyroidism Assessment/Plan: cont home meds Code(s): E03.9 - HYPOTHYROIDISM, UNSPECIFIED (8) Urinary retention Assessment/Plan: bladder scan >300 place moran Code(s): R33.9 - RETENTION OF URINE, UNSPECIFIED (9) Abnormal liver function tests Assessment/Plan: GI following us abd ordered hepatitis profile ordered check pt/inr Code(s): R94.5 - ABNORMAL RESULTS OF LIVER FUNCTION STUDIES (10) MRSA (methicillin resistant staph aureus) culture positive Assessment/Plan: ID following BC + MRSA on daptomycin repeat cultures neg so far from 07/15 Code(s): Z22.322 - CARRIER OR SUSPECTED CARRIER OF METHICILLIN RESIS STAPH (11) Toxic metabolic encephalopathy Assessment/Plan: monitor mentation Code(s): G92 - TOXIC ENCEPHALOPATHY (12) Acute on chronic renal failure Assessment/Plan: nephrology following monitor kidney function Code(s): N17.9 - ACUTE KIDNEY FAILURE, UNSPECIFIED; N18.9 - CHRONIC KIDNEY DISEASE, UNSPECIFIED (13) Acute on chronic systolic and diastolic heart failure, NYHA class 3 Assessment/Plan: cont torsemide Code(s): I50.43 - ACUTE ON CHRONIC COMBINED SYSTOLIC AND DIASTOLIC HRT FAIL (14) Anemia Assessment/Plan: check iron profile check stool occult Code(s): D64.9 - ANEMIA, UNSPECIFIED (15) Hypokalemia Assessment/Plan: k 3.2, repleted po monitor Code(s): E87.6 - HYPOKALEMIA (16) Obesity Code(s): E66.9 - OBESITY, UNSPECIFIED (17) ICD (implantable cardioverter-defibrillator) in place Code(s): Z95.810 - PRESENCE OF AUTOMATIC (IMPLANTABLE) CARDIAC DEFIBRILLATOR
[2019-07-16] MEDS: CEFEPIME 2 GM in DEXTROSE 5%-WATER 100 ML IVPB SCH ×2 (16:23→21:45)
[2019-07-16] MEDS: DAPTOMYCIN 650 MG in SODIUM CHLORIDE 50 ML IVPB SCH (17:19)
[2019-07-16 18:02] LABS: IRON SERUM 23 ug/dL (50-175); TOTAL IRON BINDING CAPACITY 220 ug/dL (250-450)
[2019-07-16] MEDS ORDERED: PT OWN MED DRAWER 7, Y5N ONE (21:39)
[2019-07-17] MEDS ORDERED: ACETAMINOPHEN 325 MG TABLET (FP) PO ONE (00:15)
[2019-07-17] MEDS: DOCUSATE SODIUM 100 MG CAPSULE (FP) PO SCH ×3 (05:26→21:02)
[2019-07-17] MEDS: TORSEMIDE 20 MG TABLET (FP) PO SCH ×2 (05:26→14:34)
[2019-07-17] MEDS: INSULIN SLIDING SCALE (NOVOLOG) 1 VIAL SQ SCH ×4 (06:08→21:02)
[2019-07-17] MEDS: LEVOTHYROXINE NA 75 MCG TABLET (FP) PO SCH (06:08)
[2019-07-17 08:03] LABS: BASO % 0.4 % (0-2.0); EOS % 0.1 % (0-4.5); HEMATOCRIT 30.7 % (32.4-45.2); HEMOGLOBIN 9.9 GM/dL (10.7-15.3); LYMPH % 12.3 % (8-40); MCH 27.7 pg (25.7-33.7); MCHC 32.2 g/dl (32.0-36.0); MEAN CELL VOLUME 86.1 fl (80-96); MEAN PLT VOLUME 7.5 fl (7.5-11.1); MONO % 16.6 % (3.8-10.2); NEUT % 70.6 % (42.8-82.8); PLATELET COUNT 252 K/MM3 (134-434); RBC 3.56 M/mm3 (3.60-5.2); RDW 19.5 % (11.6-15.6); WHITE BLOOD COUNT 7.4 K/mm3 (4.0-10.0)
[2019-07-17 08:14] LABS: INR 2.45 (0.83-1.09); PROTHROMBIN TIME (PATIENT) 29.2 SEC (9.7-13.0)
[2019-07-17 09:05] LABS: ALBUMIN 2.1 g/dl (3.4-5.0); BILIRUBIN,TOTAL 1.2 mg/dL (0.2-1); BLOOD UREA NITROGEN 55.4 mg/dL (7-18); CALCIUM 8.3 mg/dL (8.5-10.1); CREATININE 1.2 mg/dL (0.55-1.3); POTASSIUM 3.5 mmol/L (3.5-5.1); TOT PROT 6.2 g/dl (6.4-8.2)
[2019-07-17] MEDS: PANTOPRAZOLE 20 MG TABLET PO SCH (10:00)
[2019-07-17] MEDS: APIXABAN 5 MG TABLET PO SCH ×2 (10:00→21:01)
[2019-07-17] MEDS: METOPROLOL TARTRATE 25 MG TABLET (FP) PO SCH ×2 (10:00→21:01)
[2019-07-17] MEDS: CEFEPIME 2 GM in DEXTROSE 5%-WATER 100 ML IVPB SCH (10:00)
[2019-07-17] MEDS: CLOPIDOGREL BISULFATE 75 MG TABLET (FP) PO SCH (10:00)
[2019-07-17] MEDS: CLOTRIMAZOLE 1% CREAM 15 GM TUBE TP SCH (10:01)
--- NOTE | 2019-07-17 12:22 | PN ---
Progress Note, Physician Chief Complaint: Pt A&oxx3; no chest alfred or dyspnea; c/o pain in buttocks. History of Present Illness: 64 y.o. black woman with PMH HFrEF(severely reduced LVEF; s/p ICD placement), A- fib: was on metoprolol ER and eliquis; the former was changed to amiodarone on a recent admission), HTN, HLD, CAD, s/p NSTEMI (s/p CABG and PCI), DM type 2, COPD (on home 02 5L), hypothyroidism,anemia, COPD (unclear whether still smoking cigarettes); s/p lap cholecystectomy 04/2016, s/p right THR,anxiety/ depression, anasarca, elevated LFTs likely due to systolic CHF, overweight, presenting from [facility] after falling out of a wheelchair. The patient says she was being wheeled in the wheelchair, her foot became stuck under the chair and subsequently fell forward. Denies LOC, no incontinence, no tongue biting; however the patient sustained L eyebrow laceration. Noted to have mild L periorbital swelling; no decrease in visual acuity. Denies MOREAU. PAST SURGICAL HISTORY: CABG 2003 x2 stents, ICD, cholecystectomy Social History: Smoking: long-term - Current Medication List Current Medications: Active Medications Apixaban (Eliquis -) 5 mg PO BID [facility] Last Admin: 07/17/19 10:00 Dose: 5 mg Clopidogrel Bisulfate (Plavix -) 75 mg PO DAILY [facility] Last Admin: 07/17/19 10:00 Dose: 75 mg Clotrimazole (Lotrimin 1% Cream -) 1 applic TP DAILY [facility] Last Admin: 07/17/19 10:01 Dose: 1 applic Docusate Sodium (Colace -) 100 mg PO TID [facility] Last Admin: 07/17/19 05:26 Dose: 100 mg Daptomycin 650 mg/ Sodium (Chloride) 50 mls @ 100 mls/hr IVPB 1800 [facility]; Protocol Last Admin: 07/16/19 17:19 Dose: 100 mls/hr Cefepime HCl 2 gm/ Dextrose 100 mls @ 100 mls/hr IVPB BID [facility]; Protocol Last Admin: 07/17/19 10:00 Dose: 100 mls/hr Insulin Aspart (Novolog Vial Sliding Scale -) 1 vial SQ ACHS [facility]; Protocol Last Admin: 07/17/19 06:08 Dose: Not Given Lactulose (Cephulac (Oral Use)) 20 gm PO QID PRN PRN Reason: CONSTIPATION Last Admin: 07/13/19 21:58 Dose: 20 gm Levothyroxine Sodium (Synthroid -) 75 mcg PO DAILY@0700 [facility] Last Admin: 07/17/19 06:08 Dose: 75 mcg Metoprolol Tartrate (Lopressor Injection -) 5 mg IVPUSH Q4H PRN PRN Reason: TACHYCARDIA Metoprolol Tartrate (Lopressor -) 12.5 mg PO BID [facility] Last Admin: 07/17/19 10:00 Dose: 12.5 mg Pantoprazole Sodium (Protonix -) 20 mg PO DAILY [facility] Last Admin: 07/17/19 10:00 Dose: 20 mg Torsemide (Demadex -) 20 mg PO BIDLASIX [facility] Last Admin: 07/17/19 05:26 Dose: 20 mg - Objective Vital Signs: Vital Signs Temperature 98.0 F 07/17/19 10:00 Pulse Rate 97 H 07/17/19 10:00 Respiratory Rate 18 07/17/19 10:00 Blood Pressure 96/60 07/17/19 10:00 O2 Sat by Pulse Oximetry (%) 95 07/17/19 10:00 Constitutional: Yes: Anxious, Obese Eyes: Yes: WNL HENT: Yes: WNL Neck: Yes: WNL Cardiovascular: Yes: S1 (varies in intensity), S2 (split) Respiratory: Yes: Regular, Diminished Gastrointestinal: Yes: Soft, Distention ...Rectal Exam: Yes: Deferred Genitourinary: No: Anuria Breast(s): Yes: WNL Musculoskeletal: Yes: Muscle Pain, Muscle Weakness Extremities: Yes: Cool Edema: Yes Edema: LLE: 1+, RLE: 1+ Peripheral Pulses WNL: No Peripheral Pulses: Left Doralis Pedis: 1+, Right Dorsalis Pedis: 1+ Integumentary: Yes: Venous Stasis Changes Neurological: Yes: Alert, Oriented, Weakness Labs: CBC, BMP 07/17/19 07:30 07/17/19 07:30 INR, PTT INR 2.45 (0.83-1.09) H 07/17/19 07:30 Laboratory Results - last 24 hr 07/16/19 07/17/19 07/17/19 17:05 07:30 07:30 WBC RBC Hgb Hct MCV MCH MCHC RDW Plt Count MPV Absolute Neuts (auto) Neutrophils % Lymphocytes % Monocytes % Eosinophils % Basophils % Nucleated RBC % PT with INR 29.20 H INR 2.45 H Sodium 137 Potassium 3.5 Chloride 101 Carbon Dioxide 28 Anion Gap 8 BUN 55.4 H Creatinine 1.2 Est GFR (CKD-EPI)AfAm 54.54 Est GFR (CKD-EPI)NonAf 47.06 POC Glucometer Random Glucose 99 Calcium 8.3 L Magnesium 2.0 Total Bilirubin 1.2 H AST 97 H ALT 152 H Alkaline Phosphatase 157 H Total Protein 6.2 L Albumin 2.1 L Hep A IgM Ab Confirm Negative Hep Bs Antigen Negative Hep B Core IgM Ab Negative Hepatitis C Ab (EIA) <0.1 07/17/19 07/17/19 07/17/19 07:30 11:54 16:32 WBC 7.4 RBC 3.56 L Hgb 9.9 L Hct 30.7 L MCV 86.1 MCH 27.7 MCHC 32.2 RDW 19.5 H Plt Count 252 MPV 7.5 Absolute Neuts (auto) 5.3 Neutrophils % 70.6 Lymphocytes % 12.3 D Monocytes % 16.6 H Eosinophils % 0.1 D Basophils % 0.4 D Nucleated RBC % 0 PT with INR INR Sodium Potassium Chloride Carbon Dioxide Anion Gap BUN Creatinine Est GFR (CKD-EPI)AfAm Est GFR (CKD-EPI)NonAf POC Glucometer 103 108 Random Glucose Calcium Magnesium Total Bilirubin AST ALT Alkaline Phosphatase Total Protein Albumin Hep A IgM Ab Confirm Hep Bs Antigen Hep B Core IgM Ab Hepatitis C Ab (EIA) 07/17/19 20:54 WBC RBC Hgb Hct MCV MCH MCHC RDW Plt Count MPV Absolute Neuts (auto) Neutrophils % Lymphocytes % Monocytes % Eosinophils % Basophils % Nucleated RBC % PT with INR INR Sodium Potassium Chloride Carbon Dioxide Anion Gap BUN Creatinine Est GFR (CKD-EPI)AfAm Est GFR (CKD-EPI)NonAf POC Glucometer 128 Random Glucose Calcium Magnesium Total Bilirubin AST ALT Alkaline Phosphatase Total Protein Albumin Hep A IgM Ab Confirm Hep Bs Antigen Hep B Core IgM Ab Hepatitis C Ab (EIA) Abnormal Lab Results 07/17/19 07/17/19 07/17/19 07:30 07:30 07:30 RBC 3.56 L Hgb 9.9 L Hct 30.7 L RDW 19.5 H Monocytes % 16.6 H PT with INR 29.20 H INR 2.45 H BUN 55.4 H Calcium 8.3 L Total Bilirubin 1.2 H AST 97 H ALT 152 H Alkaline Phosphatase 157 H Total Protein 6.2 L Albumin 2.1 L - ....Imaging Chest X-ray: Image Reviewed Cat Scan: Image Reviewed EKG: Image Reviewed Problem List - Problems (1) Head injury due to trauma Assessment/Plan: No facial fractures on CT facial bones. No acute intracranial pathology on CT head. Pt is on apixaban for AF. Stopped clopidogrel (fell, with head trauma this admission; unsteady gait, and has until recently taken the bus on her own, with cane for support; no recent cardiac PCI). Code(s): S09.90XA - UNSPECIFIED INJURY OF HEAD, INITIAL ENCOUNTER Qualifiers: Encounter type: initial encounter Qualified Code(s): S09.90XA - Unspecified injury of head, initial encounter (2) AICD (automatic cardioverter/defibrillator) present Assessment/Plan: ICD interrogation this admission: resting HR 120's bpm; no shocks had 3 episodes of VT requiring burst pacing (the last was 04/2019); multiple episodes of NSVT that spontaneously terminated. Pt is off amiodarone (elevated LFTs; acue CHF; thyromegaly); Restarted metoprolol tartrate (12.5 mg bid; increase as tolerated) for AF HR control, LV dysfunction, systolic CHF. F/u thyroid imaging, TFTs. F/U EKG. Code(s): Z95.810 - PRESENCE OF AUTOMATIC (IMPLANTABLE) CARDIAC DEFIBRILLATOR (3) Acute on chronic renal failure Code(s): N17.9 - ACUTE KIDNEY FAILURE, UNSPECIFIED; N18.9 - CHRONIC KIDNEY DISEASE, UNSPECIFIED (4) Acute on chronic systolic and diastolic heart failure, NYHA class 3 Assessment/Plan: +JVD Elevated BNP. ECHO: severely reduced LVEF; biatrial enlargement. Chest CT: pleural effusion ICD interrogated: AF; periods of NSVT. + MRSA blood cultures. Now off amiodarone (elevated LFTs; acute systolic CHF) Restarted metoprolol ER (AF with RVR; periods of NSVT). Pt has been on lisinopril in the past. If unable to start Entresto due to cost, would restart lisinopril if BP, BUN/Cr, electrolytes allow. Plan to restart spironolactone if tolerates the above, once doses are optimized. F/u TFTs (thyromegaly on CT; on Synthroid). On torsemide. F/u BUN/Cr, electrolytes, daily weight, Is and Os. Progressively worsening multiorgan dysfunction. High risk if procedures (e.g. ANGY) are contemplated. Code(s): I50.43 - ACUTE ON CHRONIC COMBINED SYSTOLIC AND DIASTOLIC HRT FAIL (5) Anasarca Assessment/Plan: Anasarca, elevated LFTs (prior workup indicated the latter likely due to acute/ chronic severe systolic CHF). On torsemide. Now on lisinorpil. Code(s): R60.1 - GENERALIZED EDEMA (6) Anemia Code(s): D64.9 - ANEMIA, UNSPECIFIED (7) Diverticulosis Code(s): K57.90 - DVRTCLOS OF INTEST, PART UNSP, W/O PERF OR ABSCESS W/O BLEED (8) Hx of CABG Code(s): Z95.1 - PRESENCE OF AORTOCORONARY BYPASS GRAFT (9) Overweight Code(s): E66.3 - OVERWEIGHT (10) PAF (paroxysmal atrial fibrillation) Assessment/Plan: metoprolol restarted. On apixaban. Code(s): I48.0 - PAROXYSMAL ATRIAL FIBRILLATION (11) Severe pulmonary arterial systolic hypertension Code(s): I27.21 - SECONDARY PULMONARY ARTERIAL HYPERTENSION (12) Cigarette nicotine dependence Code(s): F17.210 - NICOTINE DEPENDENCE, CIGARETTES, UNCOMPLICATED (13) Coronary artery disease Code(s): I25.10 - ATHSCL HEART DISEASE OF [place] CORONARY ARTERY W/O ANG PCTRS (14) Depression Code(s): F32.9 - MAJOR DEPRESSIVE DISORDER, SINGLE EPISODE, UNSPECIFIED (15) Diabetes Code(s): E11.9 - TYPE 2 DIABETES MELLITUS WITHOUT COMPLICATIONS Qualifiers: Diabetes mellitus type: type 2 Diabetes mellitus continuous churn buttermaker insulin use: with continuous churn buttermaker use Diabetes mellitus complication status: with unspecified complications (16) Hyperlipidemia Code(s): E78.5 - HYPERLIPIDEMIA, UNSPECIFIED Qualifiers: Hyperlipidemia type: pure hypercholesterolemia Qualified Code(s): E78.00 - Pure hypercholesterolemia, unspecified; E78.0 - Pure hypercholesterolemia (17) Peripheral neuropathy Code(s): G62.9 - POLYNEUROPATHY, UNSPECIFIED Qualifiers: Peripheral neuropathy type: polyneuropathy, unspecified Qualified Code(s): G62.9 - Polyneuropathy, unspecified (18) Sleep apnea Assessment/Plan: Rx (?CPAP) per founder and chief executive officer. Code(s): G47.30 - SLEEP APNEA, UNSPECIFIED (19) Status post THR (total hip replacement) Code(s): Z96.649 - PRESENCE OF UNSPECIFIED ARTIFICIAL HIP JOINT (20) Abdominal distension Assessment/Plan: Abdominal Xray: no pneumoperitoneum or pneumotosis; + air in stomach, small bowel, colon. Code(s): R14.0 - ABDOMINAL DISTENSION (GASEOUS) (21) MRSA (methicillin resistant staph aureus) culture positive Assessment/Plan: On Daptomycin (f/u CK: 96 earlier this admission), Zosyn. ECHO (transthoracic): severely reduced LVEF; dilated atriae; moderate MR and TR , without mention of marked structural valve abnormality (though TV and PV not well seen); no pericardial effusion. Temp 100-->99.8 F 07/13/19; afebrile since then. WBC, normal initially, dot to 18; now WNL. Code(s): Z22.322 - CARRIER OR SUSPECTED CARRIER OF METHICILLIN RESIS STAPH (22) Renal dysfunction Code(s): N28.9 - DISORDER OF KIDNEY AND URETER, UNSPECIFIED (23) Elevated troponin Code(s): R79.89 - OTHER SPECIFIED ABNORMAL FINDINGS OF BLOOD CHEMISTRY (24) NSVT (nonsustained ventricular tachycardia) Code(s): I47.2 - VENTRICULAR TACHYCARDIA
[2019-07-17] MEDS ORDERED: POTASSIUM CHLORIDE TABS 20 MEQ TABLET.ER (FP) PO ONE (14:00)
--- NOTE | 2019-07-17 14:02 | PN ---
Progress Note, Physician History of Present Illness: Pt seen and examined at bedside. She is awake and alert. She denies shortness of breath. - Current Medication List Current Medications: Active Medications Apixaban (Eliquis -) 5 mg PO BID [facility] Last Admin: 07/17/19 10:00 Dose: 5 mg Clopidogrel Bisulfate (Plavix -) 75 mg PO DAILY [facility] Last Admin: 07/17/19 10:00 Dose: 75 mg Clotrimazole (Lotrimin 1% Cream -) 1 applic TP DAILY [facility] Last Admin: 07/17/19 10:01 Dose: 1 applic Docusate Sodium (Colace -) 100 mg PO TID [facility] Last Admin: 07/17/19 05:26 Dose: 100 mg Daptomycin 650 mg/ Sodium (Chloride) 50 mls @ 100 mls/hr IVPB 1800 [facility]; Protocol Last Admin: 07/16/19 17:19 Dose: 100 mls/hr Insulin Aspart (Novolog Vial Sliding Scale -) 1 vial SQ ACHS [facility]; Protocol Last Admin: 07/17/19 13:37 Dose: Not Given Lactulose (Cephulac (Oral Use)) 20 gm PO QID PRN PRN Reason: CONSTIPATION Last Admin: 07/13/19 21:58 Dose: 20 gm Levothyroxine Sodium (Synthroid -) 75 mcg PO DAILY@0700 [facility] Last Admin: 07/17/19 06:08 Dose: 75 mcg Metoprolol Tartrate (Lopressor Injection -) 5 mg IVPUSH Q4H PRN PRN Reason: TACHYCARDIA Metoprolol Tartrate (Lopressor -) 12.5 mg PO BID [facility] Last Admin: 07/17/19 10:00 Dose: 12.5 mg Pantoprazole Sodium (Protonix -) 20 mg PO DAILY [facility] Last Admin: 07/17/19 10:00 Dose: 20 mg Torsemide (Demadex -) 20 mg PO BIDLASIX [facility] Last Admin: 07/17/19 05:26 Dose: 20 mg - Objective Vital Signs: Vital Signs Temperature 98.0 F 07/17/19 10:00 Pulse Rate 97 H 07/17/19 10:00 Respiratory Rate 18 07/17/19 10:00 Blood Pressure 96/60 07/17/19 10:00 O2 Sat by Pulse Oximetry (%) 95 07/17/19 10:00 Constitutional: Yes: Calm Eyes: Yes: Conjunctiva Clear HENT: Yes: Atraumatic Neck: Yes: Supple Cardiovascular: Yes: S1, S2 Respiratory: Yes: CTA Bilaterally Gastrointestinal: Yes: Soft Genitourinary: Yes: WNL Musculoskeletal: Yes: WNL Edema: Yes Edema: LLE: 1+, RLE: 1+ Neurological: Yes: Oriented Psychiatric: Yes: Oriented Labs: CBC, BMP 07/17/19 07:30 07/17/19 07:30 INR, PTT INR 2.45 (0.83-1.09) H 07/17/19 07:30 Problem List - Problems (1) ARF (acute renal failure) Code(s): N17.9 - ACUTE KIDNEY FAILURE, UNSPECIFIED (2) Laceration Code(s): [id number] - Assessment/Plan Current Medications Generic Name Dose Route Start Last Admin Trade Name Freq PRN Reason Stop Dose Admin Apixaban 5 mg 07/13/19 22:00 07/17/19 10:00 Eliquis - PO 5 mg BID [facility] Administration Clopidogrel Bisulfate 75 mg 07/14/19 10:00 07/17/19 10:00 Plavix - PO 75 mg DAILY [facility] Administration Clotrimazole 1 applic 07/14/19 10:00 07/17/19 10:01 Lotrimin 1% Cream - TP 1 applic DAILY [facility] Administration Docusate Sodium 100 mg 07/13/19 14:00 07/17/19 05:26 Colace - PO 100 mg TID [facility] Administration Daptomycin 650 mg/ Sodium 50 mls @ 100 mls/hr 07/15/19 18:00 07/16/19 17:19 Chloride IVPB 100 mls/hr 1800 [facility] Administration Protocol Insulin Aspart 1 vial 07/13/19 16:30 07/17/19 13:37 Novolog Vial Sliding Scale - SQ Not Given ACHS [facility] Protocol Lactulose 20 gm 07/13/19 15:53 07/13/19 21:58 Cephulac (Oral Use) PO 20 gm QID PRN Administration CONSTIPATION Levothyroxine Sodium 75 mcg 07/14/19 07:00 07/17/19 06:08 Synthroid - PO 75 mcg DAILY@0700 [facility] Administration Metoprolol Tartrate 5 mg 07/14/19 10:06 Lopressor Injection - IVPUSH Q4H PRN TACHYCARDIA Metoprolol Tartrate 12.5 mg 07/15/19 11:00 07/17/19 10:00 Lopressor - PO 12.5 mg BID [facility] Administration Pantoprazole Sodium 20 mg 07/16/19 10:00 07/17/19 10:00 Protonix - PO 20 mg DAILY [facility] Administration Potassium Chloride 40 meq 07/17/19 14:00 K-Dur - PO 07/17/19 14:01 ONCE ONE Torsemide 20 mg 07/13/19 14:00 07/17/19 05:26 Demadex - PO 20 mg BIDLASIX [facility] Administration Impression 1. LIANNA 2. CHF 3. volume overload 4. HTN 5. HLD 6. DM 7. CAD 8. COPD 9. active smoker 10. anasarca 11. hypotension 12. UTI 13. sepsis 14. bacteremia Plan - mental status improved - renal function stable - cont diuretics - cont abx - will give another dose of potassium - repeat labs in am - lianna resolving
--- NOTE | 2019-07-17 14:56 | PN ---
Progress Note (short form) - Note Progress Note: quite alert now no complaints Vital Signs Period Temp Pulse Resp BP Sys/Santoro Pulse Ox Last 24 Hr 97.4 F-98.5 F 97-101 18-20 96-104/54-63 95-100 cor-rrr lungs clear abd soft,nt ext +edema flanks, legs, arms moran CBC, BMP 07/17/19 07:30 07/17/19 07:30 Microbiology 07/13/19 13:44 Blood - Peripheral Venous Blood Culture - Final S Aureus Pseudomonas Aeruginosa 07/15/19 06:43 Blood - Peripheral Venous Blood Culture - Preliminary NO GROWTH OBTAINED AFTER 48 HOURS, INCUBATION TO CONTINUE FOR 3 DAYS. 07/15/19 06:43 Blood - Peripheral Venous Blood Culture - Preliminary NO GROWTH OBTAINED AFTER 48 HOURS, INCUBATION TO CONTINUE FOR 3 DAYS. 07/13/19 13:44 Blood - Peripheral Venous Blood Culture - Final S Aureus 07/13/19 14:00 Urine - Urine - Catheterized Urine Culture - Final NO GROWTH OBTAINED a/p fever/lethargy MRSA bacteremia pseudomonas bacteremia ICD cardiac cirrhosis daptomycin to continue resume zosyn for pseudomonas lfts, renal function improved renal/gi f/u cardiology f/u concern for icd infection/endocarditis given ICD urinary retention- moran replaced
[2019-07-17] MEDS ORDERED: IRON SUCROSE INJECTION 100 MG in SODIUM CHLORIDE 95 ML IVPB ONE (15:41)
--- NOTE | 2019-07-17 15:41 | PN ---
Progress Note, Physician Chief Complaint: s/p mechanical fall at [facility] History of Present Illness: 64 year old female with PMH CHF, afib, dm2, htn, hld, cad, copd (on home oxygen?), ckd presented to the ER s/p fall, with large hematoma. she is being treated for urinary retention, anemia, ckd, elevated lft, left breast ma, icd infection? being seen by neurosurgery, cardiology, ID , GI, and renal. - Current Medication List Current Medications: Active Medications Apixaban (Eliquis -) 5 mg PO BID [facility] Last Admin: 07/17/19 10:00 Dose: 5 mg Clopidogrel Bisulfate (Plavix -) 75 mg PO DAILY [facility] Last Admin: 07/17/19 10:00 Dose: 75 mg Clotrimazole (Lotrimin 1% Cream -) 1 applic TP DAILY [facility] Last Admin: 07/17/19 10:01 Dose: 1 applic Docusate Sodium (Colace -) 100 mg PO TID [facility] Last Admin: 07/17/19 14:34 Dose: 100 mg Daptomycin 650 mg/ Sodium (Chloride) 50 mls @ 100 mls/hr IVPB 1800 [facility]; Protocol Last Admin: 07/16/19 17:19 Dose: 100 mls/hr Piperacillin Sod/Tazobactam (Sod 3.375 gm/ Dextrose) 50 mls @ 100 mls/hr IVPB Q8H-IV [facility]; Protocol Insulin Aspart (Novolog Vial Sliding Scale -) 1 vial SQ ACHS [facility]; Protocol Last Admin: 07/17/19 13:37 Dose: Not Given Lactulose (Cephulac (Oral Use)) 20 gm PO QID PRN PRN Reason: CONSTIPATION Last Admin: 07/13/19 21:58 Dose: 20 gm Levothyroxine Sodium (Synthroid -) 75 mcg PO DAILY@0700 [facility] Last Admin: 07/17/19 06:08 Dose: 75 mcg Metoprolol Tartrate (Lopressor Injection -) 5 mg IVPUSH Q4H PRN PRN Reason: TACHYCARDIA Metoprolol Tartrate (Lopressor -) 12.5 mg PO BID [facility] Last Admin: 07/17/19 10:00 Dose: 12.5 mg Pantoprazole Sodium (Protonix -) 20 mg PO DAILY [facility] Last Admin: 07/17/19 10:00 Dose: 20 mg Torsemide (Demadex -) 20 mg PO BIDLASIX [facility] Last Admin: 07/17/19 14:34 Dose: 20 mg - Objective Vital Signs: Vital Signs Temperature 97.4 F L 07/17/19 14:03 Pulse Rate 98 H 07/17/19 14:03 Respiratory Rate 18 07/17/19 14:03 Blood Pressure 96/60 07/17/19 10:00 O2 Sat by Pulse Oximetry (%) 95 07/17/19 10:00 Constitutional: Yes: Calm HENT: Yes: Normocephalic Neck: Yes: Supple Cardiovascular: Yes: Regular Rate and Rhythm Respiratory: Yes: Regular, CTA Bilaterally Gastrointestinal: Yes: Normal Bowel Sounds, Distention Edema: LUE: 1+, RUE: 1+, LLE: 1+, RLE: 1+ Integumentary: Yes: Erythema, Other (ecchymosis) Wound/Incision: Yes: Other (sutures left eye) Neurological: Yes: Alert Labs: CBC, BMP 07/17/19 07:30 07/17/19 07:30 INR, PTT INR 2.45 (0.83-1.09) H 07/17/19 07:30 Problem List - Problems (1) MRSA (methicillin resistant staph aureus) culture positive Assessment/Plan: ID following BC + MRSA, now with pseudomonas on daptomycin/cefepime repeat cultures neg so far from 07/15 will need few more days IV antbx and then dc back to the alf on IV antbx not candiate for icd explant Code(s): Z22.322 - CARRIER OR SUSPECTED CARRIER OF METHICILLIN RESIS STAPH (2) Head injury due to trauma Assessment/Plan: [address] negative for bleed on anticoagulation being followed by PT Code(s): S09.90XA - UNSPECIFIED INJURY OF HEAD, INITIAL ENCOUNTER Qualifiers: Encounter type: initial encounter Qualified Code(s): S09.90XA - Unspecified injury of head, initial encounter (3) Fall Assessment/Plan: PT eval, plan for back to [facility] when stable Code(s): W19.XXXA - UNSPECIFIED FALL, INITIAL ENCOUNTER (4) Coronary artery disease Assessment/Plan: cont home meds Code(s): I25.10 - ATHSCL HEART DISEASE OF [place] CORONARY ARTERY W/O ANG PCTRS (5) Diabetes Assessment/Plan: cont home meds monitor sugar continue sliding scale Code(s): E11.9 - TYPE 2 DIABETES MELLITUS WITHOUT COMPLICATIONS Qualifiers: Diabetes mellitus type: type 2 Diabetes mellitus chcf insulin use: with continuous churn buttermaker use Diabetes mellitus complication status: with unspecified complications (6) Hyperlipidemia Assessment/Plan: cont home meds Code(s): E78.5 - HYPERLIPIDEMIA, UNSPECIFIED Qualifiers: Hyperlipidemia type: pure hypercholesterolemia Qualified Code(s): E78.00 - Pure hypercholesterolemia, unspecified; E78.0 - Pure hypercholesterolemia (7) Hypertension Assessment/Plan: cont home meds Code(s): I10 - ESSENTIAL (PRIMARY) HYPERTENSION Qualifiers: Hypertension type: essential hypertension Qualified Code(s): I10 - Essential (primary) hypertension (8) Hypothyroidism Assessment/Plan: cont home meds check thyroid profile UNABLE TO OBTAIN THYROID US IN HOUSE Code(s): E03.9 - HYPOTHYROIDISM, UNSPECIFIED (9) Urinary retention Assessment/Plan: continue moran Code(s): R33.9 - RETENTION OF URINE, UNSPECIFIED (10) Abnormal liver function tests Assessment/Plan: GI following us abd done- heterogenous liver w cirrhosis hepatitis profile ordered monitor pt/inr Code(s): R94.5 - ABNORMAL RESULTS OF LIVER FUNCTION STUDIES (11) Toxic metabolic encephalopathy Assessment/Plan: monitor mentation Code(s): G92 - TOXIC ENCEPHALOPATHY (12) Acute on chronic renal failure Assessment/Plan: nephrology following monitor kidney function Code(s): N17.9 - ACUTE KIDNEY FAILURE, UNSPECIFIED; N18.9 - CHRONIC KIDNEY DISEASE, UNSPECIFIED (13) Acute on chronic systolic and diastolic heart failure, NYHA class 3 Assessment/Plan: cont torsemide Code(s): I50.43 - ACUTE ON CHRONIC COMBINED SYSTOLIC AND DIASTOLIC HRT FAIL (14) Anemia Assessment/Plan: check iron profile check stool occult Code(s): D64.9 - ANEMIA, UNSPECIFIED (15) Hypokalemia Assessment/Plan: k 3.5, repleted po monitor Code(s): E87.6 - HYPOKALEMIA (16) Obesity Code(s): E66.9 - OBESITY, UNSPECIFIED (17) ICD (implantable cardioverter-defibrillator) in place Code(s): Z95.810 - PRESENCE OF AUTOMATIC (IMPLANTABLE) CARDIAC DEFIBRILLATOR
[2019-07-17 16:30] VITALS: BMI 31.9
[2019-07-17] MEDS ORDERED: DEXTROSE 5%-WATER - 50 ML IVPB ONE (17:02)
[2019-07-17] MEDS ORDERED: PIPERACILLIN/TAZOBACTAM 3.375 GM VIAL IVPB ONE (17:02)
[2019-07-17] MEDS: DAPTOMYCIN 650 MG in SODIUM CHLORIDE 50 ML IVPB SCH (17:03)
[2019-07-17] MEDS: PIPERACILLIN/TAZOB 3.375 GM 3.375 GM in DEXTROSE 5%-WATER - 50 ML IVPB SCH (17:42)
[2019-07-17] MEDS ORDERED: LORazepam 2 MG/ML SDV VIAL IVPUSH ONE (20:38)
[2019-07-18] MEDS ORDERED: PIPERACILLIN/TAZOBACTAM 3.375 GM VIAL IVPB ONE ×3 (01:13→16:36)
[2019-07-18] MEDS ORDERED: DEXTROSE 5%-WATER - 50 ML IVPB ONE ×3 (01:13→16:36)
[2019-07-18] MEDS: PIPERACILLIN/TAZOB 3.375 GM 3.375 GM in DEXTROSE 5%-WATER - 50 ML IVPB SCH ×3 (01:47→17:54)
[2019-07-18] MEDS: DOCUSATE SODIUM 100 MG CAPSULE (FP) PO SCH ×3 (06:38→21:27)
[2019-07-18] MEDS: LEVOTHYROXINE NA 75 MCG TABLET (FP) PO SCH (06:38)
[2019-07-18] MEDS: TORSEMIDE 20 MG TABLET (FP) PO SCH ×2 (06:38→13:28)
[2019-07-18] MEDS: INSULIN SLIDING SCALE (NOVOLOG) 1 VIAL SQ SCH ×4 (06:39→21:36)
[2019-07-18 08:22] LABS: BASO % 0.2 % (0-2.0); HEMATOCRIT 33.4 % (32.4-45.2); HEMOGLOBIN 10.8 GM/dL (10.7-15.3); LYMPH % 13.3 % (8-40); MCH 28.1 pg (25.7-33.7); MCHC 32.5 g/dl (32.0-36.0); MEAN CELL VOLUME 86.7 fl (80-96); MEAN PLT VOLUME 7.6 fl (7.5-11.1); MONO % 14.6 % (3.8-10.2); NEUT % 71.9 % (42.8-82.8); PLATELET COUNT 273 K/MM3 (134-434); RBC 3.85 M/mm3 (3.60-5.2); RDW 19.4 % (11.6-15.6); WHITE BLOOD COUNT 7.2 K/mm3 (4.0-10.0)
[2019-07-18 08:57] LABS: BILIRUBIN,TOTAL 1.5 mg/dL (0.2-1); BLOOD UREA NITROGEN 61.7 mg/dL (7-18); CALCIUM 8.1 mg/dL (8.5-10.1); CREATININE 1.6 mg/dL (0.55-1.3); POTASSIUM 4.1 mmol/L (3.5-5.1); TOT PROT 6.5 g/dl (6.4-8.2)
[2019-07-18] MEDS ORDERED: PT OWN MED DRAWER 7, Y5N ONE (09:49)
--- NOTE | 2019-07-18 09:51 | PN.GI ---
GI Progress Note Subjective: Somnolent Confused last night. Received ativan LFTs continue to improve - Objective Vital Signs: Vital Signs Temperature 98.4 F 07/18/19 07:42 Pulse Rate 100 H 07/18/19 07:42 Respiratory Rate 20 07/18/19 07:42 Blood Pressure 122/70 07/18/19 07:42 O2 Sat by Pulse Oximetry (%) 98 07/17/19 21:00 Constitutional: Calm Eyes: No: Sclera Icterus Cardiovascular: Yes: Regular Rate and Rhythm Respiratory: Yes: Diminished (at bases bilaterally with poor insp effort) ...Palpate: Yes: Soft. No: Tenderness ...Percussion: No: Tympanitic Neurological: Yes: Other (Somnolent) Labs: CBC, BMP 07/18/19 07:33 07/18/19 07:33 INR, PTT INR 2.45 (0.83-1.09) H 07/17/19 07:30 Problem List - Problems (1) Abnormal liver function tests Assessment/Plan: Improving Suspect amiodarone toxicity Ordered ammonia Changed lactulose order to standing 20mg QID Rifaximin 550mg PO BID Exclude alternate etiologies of lethargy/confusion Code(s): R94.5 - ABNORMAL RESULTS OF LIVER FUNCTION STUDIES
[2019-07-18] MEDS: METOPROLOL TARTRATE 25 MG TABLET (FP) PO SCH ×2 (09:57→21:36)
[2019-07-18] MEDS: PANTOPRAZOLE 20 MG TABLET PO SCH (09:57)
[2019-07-18] MEDS: APIXABAN 5 MG TABLET PO SCH ×2 (09:58→21:36)
[2019-07-18] MEDS: LISINOPRIL 5 MG TABLET (FP) PO SCH (09:58)
[2019-07-18] MEDS: CLOTRIMAZOLE 1% CREAM 15 GM TUBE TP SCH (09:59)
[2019-07-18] MEDS: LACTULOSE 20 GM/30 ML UDC (FOR ORAL USE ONLY) PO SCH ×4 (11:00→21:27)
--- NOTE | 2019-07-18 11:07 | PN ---
Progress Note, Physician History of Present Illness: 64 y.o. black woman with PMH HFrEF(severely reduced LVEF; s/p ICD placement), A- fib: was on metoprolol ER and eliquis; the former was changed to amiodarone on a recent admission), HTN, HLD, CAD, s/p NSTEMI (s/p CABG and PCI), DM type 2, COPD (on home 02 5L), hypothyroidism,anemia, overweight, presenting from [facility] after falling out of a wheelchair. The patient says she was being wheeled in the wheelchair, her foot became stuck under the chair and subsequently fell forward. Denies LOC, no incontinence, no tongue biting; however the patient sustained L eyebrow laceration. Noted to have mild L periorbital swelling; no decrease in visual acuity. Denies MOREAU. - Current Medication List Current Medications: Active Medications Apixaban (Eliquis -) 5 mg PO BID [facility] Last Admin: 07/18/19 09:58 Dose: 5 mg Clotrimazole (Lotrimin 1% Cream -) 1 applic TP DAILY [facility] Last Admin: 07/18/19 09:59 Dose: 1 applic Docusate Sodium (Colace -) 100 mg PO TID [facility] Last Admin: 07/18/19 06:38 Dose: 100 mg Daptomycin 650 mg/ Sodium (Chloride) 50 mls @ 100 mls/hr IVPB 1800 [facility]; Protocol Last Admin: 07/17/19 17:03 Dose: 100 mls/hr Piperacillin Sod/Tazobactam (Sod 3.375 gm/ Dextrose) 50 mls @ 100 mls/hr IVPB Q8H-IV [facility]; Protocol Last Admin: 07/18/19 09:59 Dose: 100 mls/hr Insulin Aspart (Novolog Vial Sliding Scale -) 1 vial SQ ACHS [facility]; Protocol Last Admin: 07/18/19 06:39 Dose: Not Given Lactulose (Cephulac (Oral Use)) 20 gm PO QID [facility] Last Admin: 07/18/19 11:00 Dose: 20 gm Levothyroxine Sodium (Synthroid -) 75 mcg PO DAILY@0700 [facility] Last Admin: 07/18/19 06:38 Dose: 75 mcg Lisinopril (Prinivil) 2.5 mg PO DAILY [facility] Last Admin: 07/18/19 09:58 Dose: 2.5 mg Metoprolol Tartrate (Lopressor Injection -) 5 mg IVPUSH Q4H PRN PRN Reason: TACHYCARDIA Metoprolol Tartrate (Lopressor -) 12.5 mg PO BID [facility] Last Admin: 07/18/19 09:57 Dose: 12.5 mg Pantoprazole Sodium (Protonix -) 20 mg PO DAILY [facility] Last Admin: 07/18/19 09:57 Dose: 20 mg Torsemide (Demadex -) 20 mg PO BIDLASIX [facility] Last Admin: 07/18/19 06:38 Dose: 20 mg - Objective Vital Signs: Vital Signs Temperature 98.4 F 07/18/19 07:42 Pulse Rate 100 H 07/18/19 07:42 Respiratory Rate 20 07/18/19 07:42 Blood Pressure 122/70 07/18/19 07:42 O2 Sat by Pulse Oximetry (%) 98 07/17/19 21:00 Eyes: Yes: WNL, Conjunctiva Clear, EOM Intact HENT: Yes: WNL, Atraumatic, Normocephalic Neck: Yes: WNL, Supple, Trachea Midline Cardiovascular: Yes: WNL, Regular Rate and Rhythm Respiratory: Yes: WNL, Regular, CTA Bilaterally Gastrointestinal: Yes: WNL, Normal Bowel Sounds Genitourinary: Yes: WNL Musculoskeletal: Yes: WNL Extremities: Yes: WNL Edema: Yes Integumentary: Yes: WNL ...Motor Strength: WNL Psychiatric: Yes: WNL Labs: CBC, BMP 07/18/19 07:33 07/18/19 07:33 INR, PTT INR 2.45 (0.83-1.09) H 07/17/19 07:30 Problem List - Problems (1) ARF (acute renal failure) Code(s): N17.9 - ACUTE KIDNEY FAILURE, UNSPECIFIED (2) Abdominal distension Code(s): R14.0 - ABDOMINAL DISTENSION (GASEOUS) (3) Head injury due to trauma Code(s): S09.90XA - UNSPECIFIED INJURY OF HEAD, INITIAL ENCOUNTER Qualifiers: Encounter type: initial encounter Qualified Code(s): S09.90XA - Unspecified injury of head, initial encounter (4) Laceration Code(s): [id number] - (5) Lethargy Code(s): R53.83 - OTHER FATIGUE (6) Leukocytosis Code(s): D72.829 - ELEVATED WHITE BLOOD CELL COUNT, UNSPECIFIED (7) Transaminitis Code(s): R74.0 - NONSPEC ELEV OF LEVELS OF TRANSAMNS & LACTIC ACID DEHYDRGNSE (8) AICD (automatic cardioverter/defibrillator) present Code(s): Z95.810 - PRESENCE OF AUTOMATIC (IMPLANTABLE) CARDIAC DEFIBRILLATOR (9) LIANNA (acute kidney injury) Code(s): N17.9 - ACUTE KIDNEY FAILURE, UNSPECIFIED (10) Acute on chronic renal failure Code(s): N17.9 - ACUTE KIDNEY FAILURE, UNSPECIFIED; N18.9 - CHRONIC KIDNEY DISEASE, UNSPECIFIED (11) Acute on chronic systolic and diastolic heart failure, NYHA class 3 Code(s): I50.43 - ACUTE ON CHRONIC COMBINED SYSTOLIC AND DIASTOLIC HRT FAIL (12) Anasarca Code(s): R60.1 - GENERALIZED EDEMA (13) Anemia Code(s): D64.9 - ANEMIA, UNSPECIFIED (14) Anxiety and depression Code(s): F41.9 - ANXIETY DISORDER, UNSPECIFIED; F32.9 - MAJOR DEPRESSIVE DISORDER, SINGLE EPISODE, UNSPECIFIED (15) Ascites Code(s): R18.8 - OTHER ASCITES Qualifiers: Ascites type: other type Qualified Code(s): R18.8 - Other ascites (16) Bacteremia Code(s): R78.81 - BACTEREMIA (17) CHF exacerbation Code(s): I50.9 - HEART FAILURE, UNSPECIFIED Qualifiers: Heart failure type: unspecified Qualified Code(s): I50.9 - Heart failure, unspecified (18) Chest pain of uncertain etiology Code(s): R07.89 - OTHER CHEST PAIN (19) Chronic abdominal pain Code(s): R10.9 - UNSPECIFIED ABDOMINAL PAIN; G89.29 - OTHER CHRONIC PAIN (20) Diverticulosis Code(s): K57.90 - DVRTCLOS OF INTEST, PART UNSP, W/O PERF OR ABSCESS W/O BLEED (21) Facial swelling Code(s): R22.0 - LOCALIZED SWELLING, MASS AND LUMP, HEAD (22) Fall Code(s): W19.XXXA - UNSPECIFIED FALL, INITIAL ENCOUNTER (23) Hepatopathy Code(s): K76.9 - LIVER DISEASE, UNSPECIFIED (24) Hx of CABG Code(s): Z95.1 - PRESENCE OF AORTOCORONARY BYPASS GRAFT (25) Hypokalemia Code(s): E87.6 - HYPOKALEMIA (26) Hypomagnesemia Code(s): E83.42 - HYPOMAGNESEMIA (27) Hypotension Code(s): I95.9 - HYPOTENSION, UNSPECIFIED (28) Noncompliance with therapeutic plan Code(s): Z91.11 - PATIENT'S NONCOMPLIANCE WITH DIETARY REGIMEN (29) Obesity Code(s): E66.9 - OBESITY, UNSPECIFIED (30) Overweight Code(s): E66.3 - OVERWEIGHT (31) PAF (paroxysmal atrial fibrillation) Code(s): I48.0 - PAROXYSMAL ATRIAL FIBRILLATION (32) Rapid atrial fibrillation Code(s): I48.91 - UNSPECIFIED ATRIAL FIBRILLATION (33) Sepsis Code(s): A41.9 - SEPSIS, UNSPECIFIED ORGANISM (34) Severe pulmonary arterial systolic hypertension Code(s): I27.21 - SECONDARY PULMONARY ARTERIAL HYPERTENSION (35) Shortness of breath Code(s): R06.02 - SHORTNESS OF BREATH (36) Smokes cigarettes Code(s): F17.210 - NICOTINE DEPENDENCE, CIGARETTES, UNCOMPLICATED (37) Subendocardial ischemia Code(s): I24.8 - OTHER FORMS OF ACUTE ISCHEMIC HEART DISEASE (38) Abdominal pain Code(s): R10.9 - UNSPECIFIED ABDOMINAL PAIN Qualifiers: Abdominal location: lower abdomen, unspecified Qualified Code(s): R10.30 - Lower abdominal pain, unspecified (39) Acute combined systolic and diastolic ACC/AHA stage C congestive heart failure Code(s): I50.41 - ACUTE COMBINED SYSTOLIC AND DIASTOLIC (CONGESTIVE) HRT FAIL (40) CHF (congestive heart failure) Code(s): I50.9 - HEART FAILURE, UNSPECIFIED Qualifiers: Heart failure type: unspecified Heart failure chronicity: acute on chronic Qualified Code(s): I50.9 - Heart failure, unspecified (41) Chest pain Code(s): R07.9 - CHEST PAIN, UNSPECIFIED Qualifiers: Chest pain type: unspecified Qualified Code(s): R07.9 - Chest pain, unspecified (42) Chronic systolic congestive heart failure Code(s): I50.22 - CHRONIC SYSTOLIC (CONGESTIVE) HEART FAILURE (43) Cigarette nicotine dependence Code(s): F17.210 - NICOTINE DEPENDENCE, CIGARETTES, UNCOMPLICATED (44) Coronary artery disease Code(s): I25.10 - ATHSCL HEART DISEASE OF [place] CORONARY ARTERY W/O ANG PCTRS (45) Depression Code(s): F32.9 - MAJOR DEPRESSIVE DISORDER, SINGLE EPISODE, UNSPECIFIED (46) Diabetes Code(s): E11.9 - TYPE 2 DIABETES MELLITUS WITHOUT COMPLICATIONS Qualifiers: Diabetes mellitus type: type 2 Diabetes mellitus terminal superintendent insulin use: with [facility] use Diabetes mellitus complication status: with unspecified complications (47) Dyspepsia Code(s): K30 - FUNCTIONAL DYSPEPSIA (48) Fatty liver Code(s): K76.0 - FATTY (CHANGE OF) LIVER, NOT ELSEWHERE CLASSIFIED (49) Hyperbilirubinemia Code(s): E80.6 - OTHER DISORDERS OF BILIRUBIN METABOLISM (50) Hyperlipidemia Code(s): E78.5 - HYPERLIPIDEMIA, UNSPECIFIED Qualifiers: Hyperlipidemia type: pure hypercholesterolemia Qualified Code(s): E78.00 - Pure hypercholesterolemia, unspecified; E78.0 - Pure hypercholesterolemia (51) Hypertension Code(s): I10 - ESSENTIAL (PRIMARY) HYPERTENSION Qualifiers: Hypertension type: essential hypertension Qualified Code(s): I10 - Essential (primary) hypertension (52) Hypothyroidism Code(s): E03.9 - HYPOTHYROIDISM, UNSPECIFIED (53) ICD (implantable cardioverter-defibrillator) in place Code(s): Z95.810 - PRESENCE OF AUTOMATIC (IMPLANTABLE) CARDIAC DEFIBRILLATOR (54) Lower extremity edema Code(s): R60.0 - LOCALIZED EDEMA (55) NSVT (nonsustained ventricular tachycardia) Code(s): I47.2 - VENTRICULAR TACHYCARDIA (56) Noncompliance with medication regimen Code(s): Z91.14 - PATIENT'S OTHER NONCOMPLIANCE WITH MEDICATION REGIMEN (57) Peripheral neuropathy Code(s): G62.9 - POLYNEUROPATHY, UNSPECIFIED Qualifiers: Peripheral neuropathy type: polyneuropathy, unspecified Qualified Code(s): G62.9 - Polyneuropathy, unspecified (59) Sleep apnea Code(s): G47.30 - SLEEP APNEA, UNSPECIFIED (60) Sphincter of Oddi dysfunction Code(s): K83.4 - SPASM OF SPHINCTER OF ODDI (61) Status post THR (total hip replacement) Code(s): Z96.649 - PRESENCE OF UNSPECIFIED ARTIFICIAL HIP JOINT (62) Cardiac cirrhosis Code(s): K76.1 - CHRONIC PASSIVE CONGESTION OF LIVER Assessment/Plan - Problems (1) Head injury due to trauma Assessment/Plan: No facial fractures on CT facial bones. No acute intracranial pathology on CT head. Pt is on apixaban for AF. Stopped clopidogrel (fell, with head trauma this admission; unsteady gait, and has until recently taken the bus on her own, with cane for support; no recent cardiac PCI). Code(s): S09.90XA - UNSPECIFIED INJURY OF HEAD, INITIAL ENCOUNTER Qualifiers: Encounter type: initial encounter Qualified Code(s): S09.90XA - Unspecified injury of head, initial encounter (2) AICD (automatic cardioverter/defibrillator) present Assessment/Plan: ICD interrogation this admission: resting HR 120's bpm; no shocks had 3 episodes of VT requiring burst pacing (the last was 04/2019); multiple episodes of NSVT that spontaneously terminated. Pt is off amiodarone (elevated LFTs; acue CHF; thyromegaly); Restarted metoprolol tartrate (12.5 mg bid; increase as tolerated) for AF HR control, LV dysfunction, systolic CHF. F/u thyroid imaging, TFTs. F/U EKG. Code(s): Z95.810 - PRESENCE OF AUTOMATIC (IMPLANTABLE) CARDIAC DEFIBRILLATOR (3) Acute on chronic renal failure Code(s): N17.9 - ACUTE KIDNEY FAILURE, UNSPECIFIED; N18.9 - CHRONIC KIDNEY DISEASE, UNSPECIFIED (4) Acute on chronic systolic and diastolic heart failure, NYHA class 3 Assessment/Plan: +JVD Elevated BNP. ECHO: severely reduced LVEF; biatrial enlargement. Chest CT: pleural effusion ICD interrogated: AF; periods of NSVT. + MRSA blood cultures. Now off amiodarone (elevated LFTs; acute systolic CHF) Restarted metoprolol ER (AF with RVR; periods of NSVT). Pt has been on lisinopril in the past. If unable to start Entresto due to cost, would restart lisinopril if BP, BUN/Cr, electrolytes allow. Plan to restart spironolactone if tolerates the above, once doses are optimized. F/u TFTs (thyromegaly on CT; on Synthroid). On torsemide. F/u BUN/Cr, electrolytes, daily weight, Is and Os. Progressively worsening multiorgan dysfunction. High risk if procedures (e.g. ANGY) are contemplated. Code(s): I50.43 - ACUTE ON CHRONIC COMBINED SYSTOLIC AND DIASTOLIC HRT FAIL (5) Anasarca Assessment/Plan: Anasarca, elevated LFTs (prior workup indicated the latter likely due to acute/ chronic severe systolic CHF). On torsemide. Now on lisinorpil. Code(s): R60.1 - GENERALIZED EDEMA (6) Anemia Code(s): D64.9 - ANEMIA, UNSPECIFIED (7) Diverticulosis Code(s): K57.90 - DVRTCLOS OF INTEST, PART UNSP, W/O PERF OR ABSCESS W/O BLEED (8) Hx of CABG Code(s): Z95.1 - PRESENCE OF AORTOCORONARY BYPASS GRAFT (9) Overweight Code(s): E66.3 - OVERWEIGHT (10) PAF (paroxysmal atrial fibrillation) Assessment/Plan: metoprolol restarted. On apixaban. Code(s): I48.0 - PAROXYSMAL ATRIAL FIBRILLATION (11) Severe pulmonary arterial systolic hypertension Code(s): I27.21 - SECONDARY PULMONARY ARTERIAL HYPERTENSION (12) Cigarette nicotine dependence Code(s): F17.210 - NICOTINE DEPENDENCE, CIGARETTES, UNCOMPLICATED (13) Coronary artery disease Code(s): I25.10 - ATHSCL HEART DISEASE OF [place] CORONARY ARTERY W/O ANG PCTRS (14) Depression Code(s): F32.9 - MAJOR DEPRESSIVE DISORDER, SINGLE EPISODE, UNSPECIFIED (15) Diabetes Code(s): E11.9 - TYPE 2 DIABETES MELLITUS WITHOUT COMPLICATIONS Qualifiers: Diabetes mellitus type: type 2 Diabetes mellitus [facility] insulin use: with terminal superintendent use Diabetes mellitus complication status: with unspecified complications (16) Hyperlipidemia Code(s): E78.5 - HYPERLIPIDEMIA, UNSPECIFIED Qualifiers: Hyperlipidemia type: pure hypercholesterolemia Qualified Code(s): E78.00 - Pure hypercholesterolemia, unspecified; E78.0 - Pure hypercholesterolemia (17) Peripheral neuropathy Code(s): G62.9 - POLYNEUROPATHY, UNSPECIFIED Qualifiers: Peripheral neuropathy type: polyneuropathy, unspecified Qualified Code(s): G62.9 - Polyneuropathy, unspecified (18) Sleep apnea Assessment/Plan: Rx (?CPAP) per math coach. Code(s): G47.30 - SLEEP APNEA, UNSPECIFIED (19) Status post THR (total hip replacement) Code(s): Z96.649 - PRESENCE OF UNSPECIFIED ARTIFICIAL HIP JOINT (20) Abdominal distension Assessment/Plan: Abdominal Xray: no pneumoperitoneum or pneumotosis; + air in stomach, small bowel, colon. Code(s): R14.0 - ABDOMINAL DISTENSION (GASEOUS) (21) MRSA (methicillin resistant staph aureus) culture positive Assessment/Plan: On Daptomycin (f/u CK: 96 earlier this admission), Zosyn. ECHO (transthoracic): severely reduced LVEF; dilated atriae; moderate MR and TR , without mention of marked structural valve abnormality (though TV and PV not well seen); no pericardial effusion. Temp 100-->99.8 F 07/13/19; afebrile since then. WBC, normal initially, dot to 18; now WNL. Code(s): Z22.322 - CARRIER OR SUSPECTED CARRIER OF METHICILLIN RESIS STAPH (22) Renal dysfunction Code(s): N28.9 - DISORDER OF KIDNEY AND URETER, UNSPECIFIED (23) Elevated troponin Code(s): R79.89 - OTHER SPECIFIED ABNORMAL FINDINGS OF BLOOD CHEMISTRY (24) NSVT (nonsustained ventricular tachycardia) Code(s): I47.2 - VENTRICULAR TACHYCARDIA
--- NOTE | 2019-07-18 11:21 | EKG ---
Test Reason : Blood Pressure : / mmHG Vent. Rate : 113 BPM Atrial Rate : 214 BPM P-R Int : 000 ms QRS Dur : 136 ms QT Int : 380 ms P-R-T Axes : 000 125 -86 degrees QTc Int : 521 ms ATRIAL FIBRILLATION WITH RAPID VENTRICULAR RESPONSE WITH PREMATURE VENTRICULAR OR ABERRANTLY CONDUCTED COMPLEXES RIGHT AXIS DEVIATION NON-SPECIFIC INTRA-VENTRICULAR CONDUCTION BLOCK CANNOT RULE OUT SEPTAL INFARCT (CITED ON OR BEFORE 18-JUL-2019) ABNORMAL ECG Confirmed by SUDEEP BURTON MD ([id number] on 07/18/2019 11:21:19 AM Referred By: SATHYA ARREGUIN DR Confirmed By:SUDEEP BURTON MD
--- NOTE | 2019-07-18 12:38 | PN ---
Progress Note, Physician History of Present Illness: Pt seen and examined at bedside. She is awake and alert. She denies shortness of breath. - Current Medication List Current Medications: Active Medications Apixaban (Eliquis -) 5 mg PO BID [facility] Last Admin: 07/18/19 09:58 Dose: 5 mg Clotrimazole (Lotrimin 1% Cream -) 1 applic TP DAILY [facility] Last Admin: 07/18/19 09:59 Dose: 1 applic Docusate Sodium (Colace -) 100 mg PO TID [facility] Last Admin: 07/18/19 06:38 Dose: 100 mg Daptomycin 650 mg/ Sodium (Chloride) 50 mls @ 100 mls/hr IVPB 1800 [facility]; Protocol Last Admin: 07/17/19 17:03 Dose: 100 mls/hr Piperacillin Sod/Tazobactam (Sod 3.375 gm/ Dextrose) 50 mls @ 100 mls/hr IVPB Q8H-IV [facility]; Protocol Last Admin: 07/18/19 09:59 Dose: 100 mls/hr Insulin Aspart (Novolog Vial Sliding Scale -) 1 vial SQ ACHS [facility]; Protocol Last Admin: 07/18/19 11:13 Dose: Not Given Lactulose (Cephulac (Oral Use)) 20 gm PO QID [facility] Last Admin: 07/18/19 11:00 Dose: 20 gm Levothyroxine Sodium (Synthroid -) 75 mcg PO DAILY@0700 [facility] Last Admin: 07/18/19 06:38 Dose: 75 mcg Lisinopril (Prinivil) 2.5 mg PO DAILY [facility] Last Admin: 07/18/19 09:58 Dose: 2.5 mg Metoprolol Tartrate (Lopressor Injection -) 5 mg IVPUSH Q4H PRN PRN Reason: TACHYCARDIA Metoprolol Tartrate (Lopressor -) 12.5 mg PO BID [facility] Last Admin: 07/18/19 09:57 Dose: 12.5 mg Pantoprazole Sodium (Protonix -) 20 mg PO DAILY [facility] Last Admin: 07/18/19 09:57 Dose: 20 mg Torsemide (Demadex -) 20 mg PO BIDLASIX [facility] Last Admin: 07/18/19 06:38 Dose: 20 mg - Objective Vital Signs: Vital Signs Temperature 98.4 F 07/18/19 07:42 Pulse Rate 100 H 07/18/19 07:42 Respiratory Rate 20 07/18/19 07:42 Blood Pressure 122/70 07/18/19 07:42 O2 Sat by Pulse Oximetry (%) 98 07/17/19 21:00 Constitutional: Yes: Calm Eyes: Yes: Conjunctiva Clear HENT: Yes: Atraumatic Neck: Yes: Supple Respiratory: Yes: CTA Bilaterally Gastrointestinal: Yes: Soft Genitourinary: Yes: Lam Present Edema: Yes Edema: LLE: Trace, RLE: Trace Integumentary: Yes: Venous Stasis Changes Neurological: Yes: Oriented Labs: CBC, BMP 07/18/19 07:33 07/18/19 07:33 INR, PTT INR 2.45 (0.83-1.09) H 07/17/19 07:30 Problem List - Problems (1) ARF (acute renal failure) Code(s): N17.9 - ACUTE KIDNEY FAILURE, UNSPECIFIED (2) Laceration Code(s): [id number] - Assessment/Plan Current Medications Generic Name Dose Route Start Last Admin Trade Name Freq PRN Reason Stop Dose Admin Apixaban 5 mg 07/13/19 22:00 07/18/19 09:58 Eliquis - PO 5 mg BID [facility] Administration Clotrimazole 1 applic 07/14/19 10:00 07/18/19 09:59 Lotrimin 1% Cream - TP 1 applic DAILY [facility] Administration Docusate Sodium 100 mg 07/13/19 14:00 07/18/19 06:38 Colace - PO 100 mg TID [facility] Administration Daptomycin 650 mg/ Sodium 50 mls @ 100 mls/hr 07/15/19 18:00 07/17/19 17:03 Chloride IVPB 100 mls/hr 1800 [facility] Administration Protocol Piperacillin Sod/Tazobactam 50 mls @ 100 mls/hr 07/17/19 18:00 07/18/19 09:59 Sod 3.375 gm/ Dextrose IVPB 100 mls/hr Q8H-IV [facility] Administration Protocol Insulin Aspart 1 vial 07/13/19 16:30 07/18/19 11:13 Novolog Vial Sliding Scale - SQ Not Given ACHS [facility] Protocol Lactulose 20 gm 07/18/19 10:00 07/18/19 11:00 Cephulac (Oral Use) PO 20 gm QID [facility] Administration Levothyroxine Sodium 75 mcg 07/14/19 07:00 07/18/19 06:38 Synthroid - PO 75 mcg DAILY@0700 [facility] Administration Lisinopril 2.5 mg 07/18/19 10:00 07/18/19 09:58 Prinivil PO 2.5 mg DAILY [facility] Administration Metoprolol Tartrate 5 mg 07/14/19 10:06 Lopressor Injection - IVPUSH Q4H PRN TACHYCARDIA Metoprolol Tartrate 12.5 mg 07/15/19 11:00 07/18/19 09:57 Lopressor - PO 12.5 mg BID [facility] Administration Pantoprazole Sodium 20 mg 07/16/19 10:00 07/18/19 09:57 Protonix - PO 20 mg DAILY [facility] Administration Torsemide 20 mg 07/13/19 14:00 07/18/19 06:38 Demadex - PO 20 mg BIDLASIX [facility] Administration Impression 1. LIANNA 2. CHF 3. volume overload 4. HTN 5. HLD 6. DM 7. CAD 8. COPD 9. active smoker 10. anasarca 11. hypotension 12. UTI 13. sepsis 14. 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
[2019-07-18] MEDS ORDERED: IRON SUCROSE INJECTION 100 MG in SODIUM CHLORIDE 95 ML IVPB ONE (15:30)
--- NOTE | 2019-07-18 15:31 | PN ---
Progress Note, Physician Chief Complaint: s/p mechanical fall at [facility] History of Present Illness: 64 year old female with PMH CHF, afib, dm2, htn, hld, cad, copd (on home oxygen?), ckd presented to the ER s/p fall, with large hematoma. she is being treated for urinary retention, anemia, ckd, elevated lft, left breast ma, icd infection? being seen by neurosurgery, cardiology, ID , GI, and renal. - Current Medication List Current Medications: Active Medications Apixaban (Eliquis -) 5 mg PO BID [facility] Last Admin: 07/18/19 09:58 Dose: 5 mg Clotrimazole (Lotrimin 1% Cream -) 1 applic TP DAILY [facility] Last Admin: 07/18/19 09:59 Dose: 1 applic Docusate Sodium (Colace -) 100 mg PO TID [facility] Last Admin: 07/18/19 13:28 Dose: 100 mg Daptomycin 650 mg/ Sodium (Chloride) 50 mls @ 100 mls/hr IVPB 1800 [facility]; Protocol Last Admin: 07/17/19 17:03 Dose: 100 mls/hr Piperacillin Sod/Tazobactam (Sod 3.375 gm/ Dextrose) 50 mls @ 100 mls/hr IVPB Q8H-IV [facility]; Protocol Last Admin: 07/18/19 09:59 Dose: 100 mls/hr Insulin Aspart (Novolog Vial Sliding Scale -) 1 vial SQ ACHS [facility]; Protocol Last Admin: 07/18/19 11:13 Dose: Not Given Lactulose (Cephulac (Oral Use)) 20 gm PO QID [facility] Last Admin: 07/18/19 13:28 Dose: 20 gm Levothyroxine Sodium (Synthroid -) 75 mcg PO DAILY@0700 [facility] Last Admin: 07/18/19 06:38 Dose: 75 mcg Lisinopril (Prinivil) 2.5 mg PO DAILY [facility] Last Admin: 07/18/19 09:58 Dose: 2.5 mg Metoprolol Tartrate (Lopressor Injection -) 5 mg IVPUSH Q4H PRN PRN Reason: TACHYCARDIA Metoprolol Tartrate (Lopressor -) 12.5 mg PO BID [facility] Last Admin: 07/18/19 09:57 Dose: 12.5 mg Pantoprazole Sodium (Protonix -) 20 mg PO DAILY [facility] Last Admin: 07/18/19 09:57 Dose: 20 mg Torsemide (Demadex -) 20 mg PO BIDLASIX [facility] Last Admin: 07/18/19 13:28 Dose: 20 mg - Objective Vital Signs: Vital Signs Temperature 97 F L 07/18/19 14:46 Pulse Rate 103 H 07/18/19 14:46 Respiratory Rate 18 07/18/19 14:46 Blood Pressure 92/65 07/18/19 14:46 O2 Sat by Pulse Oximetry (%) 100 07/18/19 09:00 Constitutional: Yes: No Distress HENT: Yes: Normocephalic Neck: Yes: Supple Cardiovascular: Yes: Regular Rate and Rhythm Respiratory: Yes: Diminished Gastrointestinal: Yes: Normal Bowel Sounds, Distention Genitourinary: Yes: Moran Present Musculoskeletal: Yes: Muscle Weakness Integumentary: Yes: Erythema, Venous Stasis Changes, Other (ecchymosis) Wound/Incision: Yes: Clean/Dry, Other (sutures left eye) Neurological: Yes: Alert Psychiatric: Yes: Alert Labs: CBC, BMP 07/18/19 07:33 07/18/19 07:33 INR, PTT INR 2.45 (0.83-1.09) H 07/17/19 07:30 Problem List - Problems (1) Rapid atrial fibrillation Assessment/Plan: evaluated by cardiology on metoprlol 12.5 bid IVP metoprolol for tachycardia Code(s): I48.91 - UNSPECIFIED ATRIAL FIBRILLATION (2) MRSA (methicillin resistant staph aureus) culture positive Assessment/Plan: ID following BC + MRSA, now with pseudomonas on daptomycin/zosyn- creatinine rising since starting zosyn yesterday repeat cultures neg so far from 07/15 will need few more days IV antbx and then dc back to the senior living on IV antbx not candiate for icd explant Code(s): Z22.322 - CARRIER OR SUSPECTED CARRIER OF METHICILLIN RESIS STAPH (3) Head injury due to trauma Assessment/Plan: [address] negative for bleed on anticoagulation being followed by PT will need suture removal left eye Code(s): S09.90XA - UNSPECIFIED INJURY OF HEAD, INITIAL ENCOUNTER Qualifiers: Encounter type: initial encounter Qualified Code(s): S09.90XA - Unspecified injury of head, initial encounter (4) Fall Assessment/Plan: PT eval, plan for back to [facility] when stable Code(s): W19.XXXA - UNSPECIFIED FALL, INITIAL ENCOUNTER (5) Coronary artery disease Assessment/Plan: cont home meds Code(s): I25.10 - ATHSCL HEART DISEASE OF [place] CORONARY ARTERY W/O ANG PCTRS (6) Diabetes Assessment/Plan: cont home meds monitor sugar continue sliding scale Code(s): E11.9 - TYPE 2 DIABETES MELLITUS WITHOUT COMPLICATIONS Qualifiers: Diabetes mellitus type: type 2 Diabetes mellitus retirement insulin use: with retirement use Diabetes mellitus complication status: with unspecified complications (7) Hyperlipidemia Assessment/Plan: cont home meds Code(s): E78.5 - HYPERLIPIDEMIA, UNSPECIFIED Qualifiers: Hyperlipidemia type: pure hypercholesterolemia Qualified Code(s): E78.00 - Pure hypercholesterolemia, unspecified; E78.0 - Pure hypercholesterolemia (8) Hypertension Assessment/Plan: cont home meds Code(s): I10 - ESSENTIAL (PRIMARY) HYPERTENSION Qualifiers: Hypertension type: essential hypertension Qualified Code(s): I10 - Essential (primary) hypertension (9) Hypothyroidism Assessment/Plan: cont home meds check thyroid profile- wnl UNABLE TO OBTAIN THYROID US IN HOUSE Code(s): E03.9 - HYPOTHYROIDISM, UNSPECIFIED (10) Urinary retention Assessment/Plan: continue moran Code(s): R33.9 - RETENTION OF URINE, UNSPECIFIED (11) Abnormal liver function tests Assessment/Plan: GI following us abd done- heterogenous liver w cirrhosis hepatitis profile ordered monitor pt/inr Code(s): R94.5 - ABNORMAL RESULTS OF LIVER FUNCTION STUDIES (12) Toxic metabolic encephalopathy Assessment/Plan: monitor mentation Code(s): G92 - TOXIC ENCEPHALOPATHY (13) Acute on chronic renal failure Assessment/Plan: nephrology following monitor kidney function Code(s): N17.9 - ACUTE KIDNEY FAILURE, UNSPECIFIED; N18.9 - CHRONIC KIDNEY DISEASE, UNSPECIFIED (14) Acute on chronic systolic and diastolic heart failure, NYHA class 3 Assessment/Plan: cont torsemide Code(s): I50.43 - ACUTE ON CHRONIC COMBINED SYSTOLIC AND DIASTOLIC HRT FAIL (15) Anemia Assessment/Plan: check iron profile check stool occult iv venofer Code(s): D64.9 - ANEMIA, UNSPECIFIED (16) Hypokalemia Assessment/Plan: k 4.1 monitor Code(s): E87.6 - HYPOKALEMIA (17) Obesity Code(s): E66.9 - OBESITY, UNSPECIFIED (18) ICD (implantable cardioverter-defibrillator) in place Code(s): Z95.810 - PRESENCE OF AUTOMATIC (IMPLANTABLE) CARDIAC DEFIBRILLATOR
--- NOTE | 2019-07-18 15:57 | PN ---
Progress Note (short form) - Note Progress Note: no complaints eating half her meals Vital Signs Period Temp Pulse Resp BP Sys/Santoro Pulse Ox Last 24 Hr 97 F-98.4 F 91-107 18-20 91-150/61-72 98-100 cor-rrr llungs decreased bs bases abd-soft, nt ext +edema CBC, BMP 07/18/19 07:33 07/18/19 07:33 Microbiology 07/15/19 06:43 Blood - Peripheral Venous Blood Culture - Preliminary NO GROWTH OBTAINED AFTER 72 HOURS, INCUBATION TO CONTINUE FOR 2 DAYS. 07/15/19 06:43 Blood - Peripheral Venous Blood Culture - Preliminary NO GROWTH OBTAINED AFTER 72 HOURS, INCUBATION TO CONTINUE FOR 2 DAYS. 07/13/19 13:44 Blood - Peripheral Venous Blood Culture - Final S Aureus Pseudomonas Aeruginosa 07/13/19 13:44 Blood - Peripheral Venous Blood Culture - Final S Aureus 07/13/19 14:00 Urine - Urine - Catheterized Urine Culture - Final NO GROWTH OBTAINED a/p fever/lethargy MRSA bacteremia Day #5 antibiotics pseudomonas bacteremia-day #4 antibiotics ICD cardiac cirrhosis daptomycin to continue zosyn for pseudomonas lfts, renal function improved renal/gi f/u cardiology f/u concern for icd infection/endocarditis given ICD urinary retention- moran replaced repeat cpk next week
[2019-07-18] MEDS: DAPTOMYCIN 650 MG in SODIUM CHLORIDE 50 ML IVPB SCH (17:03)
[2019-07-19] MEDS ORDERED: PIPERACILLIN/TAZOBACTAM 3.375 GM VIAL IVPB ONE ×3 (01:30→17:10)
[2019-07-19] MEDS ORDERED: DEXTROSE 5%-WATER - 50 ML IVPB ONE ×3 (01:30→17:10)
[2019-07-19] MEDS: PIPERACILLIN/TAZOB 3.375 GM 3.375 GM in DEXTROSE 5%-WATER - 50 ML IVPB SCH ×3 (01:48→17:16)
[2019-07-19] MEDS: LEVOTHYROXINE NA 75 MCG TABLET (FP) PO SCH (06:17)
[2019-07-19] MEDS: INSULIN SLIDING SCALE (NOVOLOG) 1 VIAL SQ SCH ×4 (06:17→21:23)
[2019-07-19] MEDS: TORSEMIDE 20 MG TABLET (FP) PO SCH ×2 (06:17→14:26)
[2019-07-19] MEDS: DOCUSATE SODIUM 100 MG CAPSULE (FP) PO SCH ×4 (06:17→21:20)
[2019-07-19 08:51] LABS: BASO % 0.3 % (0-2.0); EOS % 0.1 % (0-4.5); HEMOGLOBIN 10.3 GM/dL (10.7-15.3); LYMPH % 9.2 % (8-40); MCH 28.1 pg (25.7-33.7); MCHC 32.2 g/dl (32.0-36.0); MEAN CELL VOLUME 87.3 fl (80-96); MEAN PLT VOLUME 7.7 fl (7.5-11.1); MONO % 15.3 % (3.8-10.2); NEUT % 75.1 % (42.8-82.8); PLATELET COUNT 258 K/MM3 (134-434); RBC 3.66 M/mm3 (3.60-5.2); RDW 20.3 % (11.6-15.6); WHITE BLOOD COUNT 8.1 K/mm3 (4.0-10.0)
--- NOTE | 2019-07-19 09:05 | PN ---
Progress Note, Physician Chief Complaint: Mechanical Fall L Periorbital Edema L Eyebrow Laceration History of Present Illness: Previous noted and events reviewed awake and alert NAD complains of generalized body pain edema RUE denies complaints of chest pain or SOB. - Current Medication List Current Medications: Active Medications Apixaban (Eliquis -) 5 mg PO BID [facility] Last Admin: 07/18/19 21:36 Dose: 5 mg Clotrimazole (Lotrimin 1% Cream -) 1 applic TP DAILY [facility] Last Admin: 07/18/19 09:59 Dose: 1 applic Docusate Sodium (Colace -) 100 mg PO TID [facility] Last Admin: 07/19/19 06:17 Dose: 100 mg Daptomycin 650 mg/ Sodium (Chloride) 50 mls @ 100 mls/hr IVPB 1800 [facility]; Protocol Last Admin: 07/18/19 17:03 Dose: 100 mls/hr Piperacillin Sod/Tazobactam (Sod 3.375 gm/ Dextrose) 50 mls @ 100 mls/hr IVPB Q8H-IV [facility]; Protocol Last Admin: 07/19/19 01:48 Dose: 100 mls/hr Insulin Aspart (Novolog Vial Sliding Scale -) 1 vial SQ ACHS [facility]; Protocol Last Admin: 07/19/19 06:17 Dose: Not Given Lactulose (Cephulac (Oral Use)) 20 gm PO QID [facility] Last Admin: 07/18/19 21:27 Dose: Not Given Levothyroxine Sodium (Synthroid -) 75 mcg PO DAILY@0700 [facility] Last Admin: 07/19/19 06:17 Dose: 75 mcg Lisinopril (Prinivil) 2.5 mg PO DAILY [facility] Last Admin: 07/18/19 09:58 Dose: 2.5 mg Metoprolol Tartrate (Lopressor Injection -) 5 mg IVPUSH Q4H PRN PRN Reason: TACHYCARDIA Metoprolol Tartrate (Lopressor -) 12.5 mg PO BID [facility] Last Admin: 07/18/19 21:36 Dose: 12.5 mg Pantoprazole Sodium (Protonix -) 20 mg PO DAILY [facility] Last Admin: 07/18/19 09:57 Dose: 20 mg Torsemide (Demadex -) 20 mg PO BIDLASIX [facility] Last Admin: 07/19/19 06:17 Dose: 20 mg - Objective Vital Signs: Vital Signs Temperature 97.7 F 07/19/19 07:05 Pulse Rate 108 H 07/19/19 07:05 Respiratory Rate 20 07/19/19 07:05 Blood Pressure 105/67 07/19/19 07:05 O2 Sat by Pulse Oximetry (%) 100 07/18/19 21:00 Constitutional: Yes: No Distress, Calm Eyes: Yes: Conjunctiva Clear HENT: Yes: Other (healing L periorbital ecchymosis) Cardiovascular: Yes: Regular Rate and Rhythm Respiratory: Yes: Regular, Diminished, On Nasal O2 Gastrointestinal: Yes: Normal Bowel Sounds, Soft Genitourinary: Yes: Lam Present Musculoskeletal: Yes: Muscle Weakness Extremities: Yes: WNL Edema: Yes Edema: RUE: 1+ Neurological: Yes: Alert Psychiatric: Yes: Alert Labs: CBC, BMP 07/19/19 07:58 INR, PTT INR 2.45 (0.83-1.09) H 07/17/19 07:30 Microbiology 07/15/19 06:43 Blood - Peripheral Venous Blood Culture - Preliminary NO GROWTH OBTAINED AFTER 96 HOURS, INCUBATION TO CONTINUE FOR 1 DAYS. 07/15/19 06:43 Blood - Peripheral Venous Blood Culture - Preliminary NO GROWTH OBTAINED AFTER 96 HOURS, INCUBATION TO CONTINUE FOR 1 DAYS. 07/13/19 13:44 Blood - Peripheral Venous Blood Culture - Final S Aureus Pseudomonas Aeruginosa 07/13/19 13:44 Blood - Peripheral Venous Blood Culture - Final S Aureus 07/13/19 14:00 Urine - Urine - Catheterized Urine Culture - Final NO GROWTH OBTAINED Problem List - Problems (1) Abdominal distension Assessment/Plan: FUA shows some air in stomach and air in small bowel loops, some air in colon with some stool, pneumoperitoneum and pneumatosis not seen GI on board Code(s): R14.0 - ABDOMINAL DISTENSION (GASEOUS) (2) Head injury due to trauma Assessment/Plan: Neuro checks Head CT scan shows no evidence of acute intracranial hemorrhage, edema, midline shift, mass effect, or skull fracture repeat Head CT scan shows no significant interval change, focal encephalomalacia in right frontal lobe anteriorly, no intracranial pathology identified Facial CT scan show maxillofacial and orbital structures show no fracture, left periorbital soft tissue edema, no intraorbital soft tissue edema or hematoma, no ocular globe injury Code(s): S09.90XA - UNSPECIFIED INJURY OF HEAD, INITIAL ENCOUNTER Qualifiers: Encounter type: initial encounter Qualified Code(s): S09.90XA - Unspecified injury of head, initial encounter (3) Laceration Assessment/Plan: Sutures in place Code(s): [id number] - (4) Anemia Assessment/Plan: Hg 10.3 monitor Hg daily transfuse for Hg <8.0 Anemia profile shows low Iron, low TIBC Code(s): D64.9 - ANEMIA, UNSPECIFIED (5) Fall Assessment/Plan: Fall precaution PT Code(s): W19.XXXA - UNSPECIFIED FALL, INITIAL ENCOUNTER (6) PAF (paroxysmal atrial fibrillation) Assessment/Plan: Apaxiban Amiodarone discontinued, Metoprolol BID for rate control Code(s): I48.0 - PAROXYSMAL ATRIAL FIBRILLATION (7) Chronic systolic congestive heart failure Assessment/Plan: Torsemide 1L fluid restriction strict I&Os daily weight low Na diet Code(s): I50.22 - CHRONIC SYSTOLIC (CONGESTIVE) HEART FAILURE (8) Coronary artery disease Assessment/Plan: Plavix discontinued Code(s): I25.10 - ATHSCL HEART DISEASE OF [place] CORONARY ARTERY W/O ANG PCTRS (9) Diabetes Assessment/Plan: [facility] Code(s): E11.9 - TYPE 2 DIABETES MELLITUS WITHOUT COMPLICATIONS Qualifiers: Diabetes mellitus type: type 2 Diabetes mellitus fci insulin use: with buttermaker continuous churn use Diabetes mellitus complication status: with unspecified complications (10) Hypertension Assessment/Plan: monitor BP Lisinopril low Na diet Code(s): I10 - ESSENTIAL (PRIMARY) HYPERTENSION Qualifiers: Hypertension type: essential hypertension Qualified Code(s): I10 - Essential (primary) hypertension (11) Hypothyroidism Assessment/Plan: Levothyroxine Code(s): E03.9 - HYPOTHYROIDISM, UNSPECIFIED (12) Lethargy Assessment/Plan: repeat Head CT scan shows no acute intracranial hemorrhage, or acute infarction Neurochecks q4h Neurology on board Code(s): R53.83 - OTHER FATIGUE (13) Leukocytosis Assessment/Plan: resolved ID on board afebrile BC show MRSA, repeat neg UC neg Lactic Acid 2.1~1.7 CXR shows enlarged heart, sternal sutures, pacemaker and central congestive changes , discrete unfiltrate is not seen Code(s): D72.829 - ELEVATED WHITE BLOOD CELL COUNT, UNSPECIFIED (14) ARF (acute renal failure) Assessment/Plan: Renal on board BUN/Cr 61.7/1.6 monitor renal function daily Code(s): N17.9 - ACUTE KIDNEY FAILURE, UNSPECIFIED (15) Transaminitis Assessment/Plan: GI on board Abdominal US shows hetergenous liver with ascites AST 61, ALT 124, Alk Phos 144 secondary to Amiodarone Lactulose Code(s): R74.0 - NONSPEC ELEV OF LEVELS OF TRANSAMNS & LACTIC ACID DEHYDRGNSE (16) MRSA (methicillin resistant staph aureus) culture positive Assessment/Plan: ID on board no leukocytosis afebrile BC MRSA, repeat neg Daptomycin, Zosyn Code(s): Z22.322 - CARRIER OR SUSPECTED CARRIER OF METHICILLIN RESIS STAPH Assessment/Plan see problem list can begin d/c planning back to SNF when switched to oral antibiotics
[2019-07-19 09:40] LABS: BILIRUBIN,TOTAL 1.6 mg/dL (0.2-1); BLOOD UREA NITROGEN 60.7 mg/dL (7-18); CREATININE 1.7 mg/dL (0.55-1.3); POTASSIUM 3.4 mmol/L (3.5-5.1); TOT PROT 6.2 g/dl (6.4-8.2)
[2019-07-19] MEDS: METOPROLOL TARTRATE 25 MG TABLET (FP) PO SCH ×2 (09:42→21:17)
[2019-07-19] MEDS: APIXABAN 5 MG TABLET PO SCH ×2 (09:42→21:17)
[2019-07-19] MEDS: LACTULOSE 20 GM/30 ML UDC (FOR ORAL USE ONLY) PO SCH ×4 (09:43→21:17)
[2019-07-19] MEDS: PANTOPRAZOLE 20 MG TABLET PO SCH (09:43)
[2019-07-19] MEDS: CLOTRIMAZOLE 1% CREAM 15 GM TUBE TP SCH (09:46)
[2019-07-19 10:44] LABS: INR 2.03 (0.83-1.09); PROTHROMBIN TIME (PATIENT) 24.1 SEC (9.7-13.0)
[2019-07-19] MEDS: LISINOPRIL 5 MG TABLET (FP) PO SCH (11:34)
[2019-07-19] MEDS ORDERED: POTASSIUM CHLORIDE TABS 20 MEQ TABLET.ER (FP) PO ONE (13:46)
--- NOTE | 2019-07-19 13:49 | PN ---
Progress Note (short form) - Note Progress Note: Renal follow up for LIANNA Coverage for Dr. Lowry Seen and examined at the bedside awake and alert reports soreness on her buttock denies any sob, cp, fever, chills, N/V/D making urine denies any rash or puritis Vital Signs Temperature 97.7 F 07/19/19 07:05 Pulse Rate 108 H 07/19/19 07:05 Respiratory Rate 20 07/19/19 07:05 Blood Pressure 105/67 07/19/19 07:05 O2 Sat by Pulse Oximetry (%) 100 07/18/19 21:00 Intake & Output 07/16/19 07/17/19 07/18/19 07/19/19 23:59 23:59 23:59 23:59 Intake Total 960 1400 800 150 Output Total 1200 582 927 3218 Balance -240 550 50 -1050 Weight 84 kg 84.368 kg 82.299 kg 84.368 kg NAD awake and alert RRR CTA soft NT/ND no LE edema CBC, BMP 07/19/19 07:58 07/19/19 07:58 Current Medications Apixaban (Eliquis -) 5 mg PO BID [facility] Last Admin: 07/19/19 09:42 Dose: 5 mg Clotrimazole (Lotrimin 1% Cream -) 1 applic TP DAILY [facility] Last Admin: 07/19/19 09:46 Dose: 1 applic Docusate Sodium (Colace -) 100 mg PO TID [facility] Last Admin: 07/19/19 06:17 Dose: 100 mg Daptomycin 650 mg/ Sodium (Chloride) 50 mls @ 100 mls/hr IVPB 1800 [facility]; Protocol Last Admin: 07/18/19 17:03 Dose: 100 mls/hr Piperacillin Sod/Tazobactam (Sod 3.375 gm/ Dextrose) 50 mls @ 100 mls/hr IVPB Q8H-IV [facility]; Protocol Last Admin: 07/19/19 09:41 Dose: 100 mls/hr Insulin Aspart (Novolog Vial Sliding Scale -) 1 vial SQ ACHS [facility]; Protocol Last Admin: 07/19/19 11:32 Dose: Not Given Lactulose (Cephulac (Oral Use)) 20 gm PO QID [facility] Last Admin: 07/19/19 09:43 Dose: 20 gm Levothyroxine Sodium (Synthroid -) 75 mcg PO DAILY@0700 [facility] Last Admin: 07/19/19 06:17 Dose: 75 mcg Lisinopril (Prinivil) 2.5 mg PO DAILY [facility] Last Admin: 07/19/19 11:34 Dose: 2.5 mg Metoprolol Tartrate (Lopressor Injection -) 5 mg IVPUSH Q4H PRN PRN Reason: TACHYCARDIA Metoprolol Tartrate (Lopressor -) 12.5 mg PO BID [facility] Last Admin: 07/19/19 09:42 Dose: 12.5 mg Pantoprazole Sodium (Protonix -) 20 mg PO DAILY [facility] Last Admin: 07/19/19 09:43 Dose: 20 mg Torsemide (Demadex -) 20 mg PO BIDLASIX [facility] Last Admin: 07/19/19 06:17 Dose: 20 mg Impression 1. LIANNA 2. CHF 3. volume overload 4. HTN 5. HLD 6. DM 7. CAD 8. COPD 9. active smoker 10. anasarca 11. hypotension 12. UTI 13. sepsis 14. bacteremia Plan Renal function essentially unchanged from yesterday Cause of rising Cr may be Abx vs. ACEi that was started 2 days ago no skin rash or peripheral eosniophilia noted Check urine for eosinophils, FeNa, UPCR Trend BUN/Cr if renal function continues to worsen would consider trial of an alterative antibiotic if possible or +/- holding ACEi supplement K Thank you Tremaine Patterson DO
[2019-07-19] MEDS ORDERED: PT OWN MED DRAWER 7, Y5N ONE (17:10)
[2019-07-19] MEDS: DAPTOMYCIN 650 MG in SODIUM CHLORIDE 50 ML IVPB SCH (18:55)
[2019-07-20] MEDS ORDERED: DEXTROSE 5%-WATER - 50 ML IVPB ONE ×3 (01:00→16:42)
[2019-07-20] MEDS ORDERED: PIPERACILLIN/TAZOBACTAM 3.375 GM VIAL IVPB ONE ×3 (01:00→16:42)
[2019-07-20] MEDS: PIPERACILLIN/TAZOB 3.375 GM 3.375 GM in DEXTROSE 5%-WATER - 50 ML IVPB SCH ×3 (01:16→17:06)
[2019-07-20] MEDS: TORSEMIDE 20 MG TABLET (FP) PO SCH ×2 (06:34→13:56)
[2019-07-20] MEDS: DOCUSATE SODIUM 100 MG CAPSULE (FP) PO SCH ×3 (06:34→21:50)
[2019-07-20] MEDS: LEVOTHYROXINE NA 75 MCG TABLET (FP) PO SCH (06:35)
[2019-07-20] MEDS: INSULIN SLIDING SCALE (NOVOLOG) 1 VIAL SQ SCH ×4 (06:36→21:54)
[2019-07-20 09:11] LABS: BASO % 0.1 % (0-2.0); HEMATOCRIT 31.4 % (32.4-45.2); MCH 27.9 pg (25.7-33.7); MEAN CELL VOLUME 87.2 fl (80-96); MEAN PLT VOLUME 7.5 fl (7.5-11.1); MONO % 13.6 % (3.8-10.2); NEUT % 78.3 % (42.8-82.8); PLATELET COUNT 246 K/MM3 (134-434); RBC 3.61 M/mm3 (3.60-5.2); WHITE BLOOD COUNT 8.1 K/mm3 (4.0-10.0)
[2019-07-20 09:39] LABS: ALBUMIN 1.8 g/dl (3.4-5.0); BILIRUBIN,TOTAL 1.6 mg/dL (0.2-1); BLOOD UREA NITROGEN 50.8 mg/dL (7-18); CALCIUM 7.8 mg/dL (8.5-10.1); CREATININE 1.3 mg/dL (0.55-1.3)
[2019-07-20] MEDS: LACTULOSE 20 GM/30 ML UDC (FOR ORAL USE ONLY) PO SCH ×2 (09:51→13:57)
[2019-07-20] MEDS: APIXABAN 5 MG TABLET PO SCH ×2 (09:52→21:50)
[2019-07-20] MEDS: METOPROLOL TARTRATE 25 MG TABLET (FP) PO SCH ×2 (09:52→21:50)
[2019-07-20] MEDS: PANTOPRAZOLE 20 MG TABLET PO SCH (09:53)
[2019-07-20] MEDS: LISINOPRIL 5 MG TABLET (FP) PO SCH (09:53)
[2019-07-20] MEDS: CLOTRIMAZOLE 1% CREAM 15 GM TUBE TP SCH (09:54)
--- NOTE | 2019-07-20 10:19 | PN ---
Progress Note, Physician Chief Complaint: Mechanical Fall L Periorbital Edema L Eyebrow Laceration History of Present Illness: Previous noted and events reviewed awake and alert NAD BC MRSA positive no leukocytosis debnies chest pain or SOB - Current Medication List Current Medications: Active Medications Apixaban (Eliquis -) 5 mg PO BID [facility] Last Admin: 07/20/19 09:52 Dose: 5 mg Clotrimazole (Lotrimin 1% Cream -) 1 applic TP DAILY [facility] Last Admin: 07/20/19 09:54 Dose: 1 applic Docusate Sodium (Colace -) 100 mg PO TID [facility] Last Admin: 07/20/19 06:34 Dose: 100 mg Daptomycin 650 mg/ Sodium (Chloride) 50 mls @ 100 mls/hr IVPB 1800 [facility]; Protocol Last Admin: 07/19/19 18:55 Dose: 100 mls/hr Piperacillin Sod/Tazobactam (Sod 3.375 gm/ Dextrose) 50 mls @ 100 mls/hr IVPB Q8H-IV [facility]; Protocol Last Admin: 07/20/19 09:54 Dose: 100 mls/hr Potassium Chloride (Potassium Chloride 10 Meq Premix Ivpb -) 10 meq in 100 mls @ 100 mls/hr IVPB Q60M [facility] Stop: 07/20/19 12:29 Insulin Aspart (Novolog Vial Sliding Scale -) 1 vial SQ ACHS [facility]; Protocol Last Admin: 07/20/19 06:36 Dose: Not Given Lactulose (Cephulac (Oral Use)) 20 gm PO QID [facility] Last Admin: 07/20/19 09:51 Dose: 20 gm Levothyroxine Sodium (Synthroid -) 75 mcg PO DAILY@0700 [facility] Last Admin: 07/20/19 06:35 Dose: 75 mcg Lisinopril (Prinivil) 2.5 mg PO DAILY [facility] Last Admin: 07/20/19 09:53 Dose: 2.5 mg Metoprolol Tartrate (Lopressor Injection -) 5 mg IVPUSH Q4H PRN PRN Reason: TACHYCARDIA Metoprolol Tartrate (Lopressor -) 12.5 mg PO BID [facility] Last Admin: 07/20/19 09:52 Dose: 12.5 mg Pantoprazole Sodium (Protonix -) 20 mg PO DAILY [facility] Last Admin: 07/20/19 09:53 Dose: 20 mg Torsemide (Demadex -) 20 mg PO BIDLASIX RINA Last Admin: 07/20/19 06:34 Dose: 20 mg - Objective Vital Signs: Vital Signs Temperature 97.5 F L 07/20/19 08:22 Pulse Rate 98 H 07/20/19 08:22 Respiratory Rate 20 07/20/19 08:22 Blood Pressure 95/54 L 07/20/19 08:22 O2 Sat by Pulse Oximetry (%) 100 07/19/19 21:00 Constitutional: Yes: No Distress, Calm Eyes: Yes: Conjunctiva Clear HENT: Yes: Atraumatic Cardiovascular: Yes: Regular Rate and Rhythm Respiratory: Yes: Regular, CTA Bilaterally Gastrointestinal: Yes: Normal Bowel Sounds, Soft Genitourinary: Yes: Lam Present Musculoskeletal: Yes: Muscle Weakness Extremities: Yes: WNL Edema: No Neurological: Yes: Alert Psychiatric: Yes: Alert Labs: CBC, BMP 07/20/19 08:30 07/20/19 08:30 INR, PTT INR 2.03 (0.83-1.09) H 07/19/19 08:50 Microbiology 07/15/19 06:43 Blood - Peripheral Venous Blood Culture - Final NO GROWTH AFTER 5 DAYS INCUBATION 07/15/19 06:43 Blood - Peripheral Venous Blood Culture - Final NO GROWTH AFTER 5 DAYS INCUBATION 07/13/19 13:44 Blood - Peripheral Venous Blood Culture - Final S Aureus Pseudomonas Aeruginosa 07/13/19 13:44 Blood - Peripheral Venous Blood Culture - Final Mr S Aureus 07/13/19 14:00 Urine - Urine - Catheterized Urine Culture - Final NO GROWTH OBTAINED Problem List - Problems (1) Abdominal distension Assessment/Plan: FUA shows some air in stomach and air in small bowel loops, some air in colon with some stool, pneumoperitoneum and pneumatosis not seen GI on board Abdominal US shows hetergenous liver with ascites Code(s): R14.0 - ABDOMINAL DISTENSION (GASEOUS) (2) Head injury due to trauma Assessment/Plan: Neuro checks Head CT scan shows no evidence of acute intracranial hemorrhage, edema, midline shift, mass effect, or skull fracture repeat Head CT scan shows no significant interval change, focal encephalomalacia in right frontal lobe anteriorly, no intracranial pathology identified Facial CT scan show maxillofacial and orbital structures show no fracture, left periorbital soft tissue edema, no intraorbital soft tissue edema or hematoma, no ocular globe injury pain control Code(s): S09.90XA - UNSPECIFIED INJURY OF HEAD, INITIAL ENCOUNTER Qualifiers: Encounter type: initial encounter Qualified Code(s): S09.90XA - Unspecified injury of head, initial encounter (3) Laceration Assessment/Plan: Sutures in place Code(s): [id number] - (4) Anemia Assessment/Plan: Hg 10.0 monitor Hg daily transfuse for Hg <8.0 Anemia profile shows low Iron, low TIBC Code(s): D64.9 - ANEMIA, UNSPECIFIED (5) Fall Assessment/Plan: Fall precaution PT Code(s): W19.XXXA - UNSPECIFIED FALL, INITIAL ENCOUNTER (6) PAF (paroxysmal atrial fibrillation) Assessment/Plan: Apaxiban Amiodarone discontinued, Metoprolol BID for rate control Code(s): I48.0 - PAROXYSMAL ATRIAL FIBRILLATION (7) Chronic systolic congestive heart failure Assessment/Plan: Torsemide 1L fluid restriction strict I&Os daily weight low Na diet Code(s): I50.22 - CHRONIC SYSTOLIC (CONGESTIVE) HEART FAILURE (8) Coronary artery disease Assessment/Plan: Plavix Code(s): I25.10 - ATHSCL HEART DISEASE OF [place] CORONARY ARTERY W/O ANG PCTRS (9) Diabetes Assessment/Plan: [facility] Code(s): E11.9 - TYPE 2 DIABETES MELLITUS WITHOUT COMPLICATIONS Qualifiers: Diabetes mellitus type: type 2 Diabetes mellitus alf insulin use: with alf use Diabetes mellitus complication status: with unspecified complications (10) Hypertension Assessment/Plan: monitor BP Code(s): I10 - ESSENTIAL (PRIMARY) HYPERTENSION Qualifiers: Hypertension type: essential hypertension Qualified Code(s): I10 - Essential (primary) hypertension (11) Hypothyroidism Assessment/Plan: Levothyroxine Code(s): E03.9 - HYPOTHYROIDISM, UNSPECIFIED (12) Lethargy Assessment/Plan: repeat Head CT scan shows Neurochecks q4h Tele monitoring Neurology on board no acute intracranial hemorrhage or acute infarction, no acute changes in brain since last exam 07/10/19 lethargy possibly 2/2 toxic metabolic encephalopathy ammonia 52.3 Lactulose Code(s): R53.83 - OTHER FATIGUE (13) Leukocytosis Assessment/Plan: resolved ID on board Daptomycin, Zosyn afebrile BC MRSA positive, repeat neg UC neg Lactic Acid 2.1~1.7 CXR shows enlarged heart, sternal sutures, pacemaker and central congestive changes , discrete infiltrate is not seen Code(s): D72.829 - ELEVATED WHITE BLOOD CELL COUNT, UNSPECIFIED (14) ARF (acute renal failure) Assessment/Plan: Renal Consult BUN/Cr 50.8/1.3 monitor renal function daily Code(s): N17.9 - ACUTE KIDNEY FAILURE, UNSPECIFIED (15) Transaminitis Assessment/Plan: GI on board Abdominal US shows heterogenous liver with ascites AST 32, ALT 78 Alk Phos 119 Code(s): R74.0 - NONSPEC ELEV OF LEVELS OF TRANSAMNS & LACTIC ACID DEHYDRGNSE (16) MRSA (methicillin resistant staph aureus) culture positive Assessment/Plan: ID on board no leukocytosis afebrile BC MRSA, repeat neg Daptomycin, Zosyn Code(s): Z22.322 - CARRIER OR SUSPECTED CARRIER OF METHICILLIN RESIS STAPH Assessment/Plan see problem list dvt ppx
[2019-07-20] MEDS: KCL 10 MEQ IVPB 10 MEQ/100 ML INFUS.BAG IVPB SCH ×2 (11:52→13:56)
--- NOTE | 2019-07-20 15:27 | PN.GI ---
GI Progress Note Subjective: Awake No acute events No abdominal pain Liver chemistries continue to improve 1 BM during this shift - Objective Vital Signs: Vital Signs Temperature 97.5 F L 07/20/19 08:22 Pulse Rate 107 H 07/20/19 12:00 Respiratory Rate 20 07/20/19 12:00 Blood Pressure 101/54 L 07/20/19 12:00 O2 Sat by Pulse Oximetry (%) 100 07/20/19 09:00 Constitutional: Calm Eyes: No: Sclera Icterus Cardiovascular: Yes: Regular Rate and Rhythm Respiratory: Yes: Diminished (at bases bilaterally with poor inspiratory effort) Gastrointestinal Inspection: Yes: Other (Softly protuberant abdomen) ...Auscultate: Yes: Normoactive Bowel Sounds ...Palpate: Yes: Soft. No: Tenderness ...Percussion: No: Tympanitic Edema: No (No LE edema) Neurological: Yes: Alert, Oriented (x person, place, time) Labs: CBC, BMP 07/20/19 08:30 07/20/19 08:30 INR, PTT INR 2.03 (0.83-1.09) H 07/19/19 08:50 Hepatic Panel Total Bilirubin 1.6 mg/dL (0.2-1) H 07/20/19 08:30 AST 32 U/L (15-37) 07/20/19 08:30 ALT 78 U/L (13-61) H 07/20/19 08:30 Alkaline Phosphatase 119 U/L (45-117) H 07/20/19 08:30 Albumin 1.8 g/dl (3.4-5.0) L 07/20/19 08:30 Problem List - Problems (1) Abnormal liver function tests Assessment/Plan: Improving Suspect amiodarone toxicity Mental status improved. Decreased lactulose to TID Code(s): R94.5 - ABNORMAL RESULTS OF LIVER FUNCTION STUDIES
[2019-07-20] MEDS ORDERED: LACTULOSE 20 GM/30 ML UDC (FOR ORAL USE ONLY) PO PRN (15:28)
[2019-07-20] MEDS: DAPTOMYCIN 650 MG in SODIUM CHLORIDE 50 ML IVPB SCH (17:05)
[2019-07-21] MEDS ORDERED: DEXTROSE 5%-WATER - 50 ML IVPB ONE ×3 (01:37→16:55)
[2019-07-21] MEDS ORDERED: PIPERACILLIN/TAZOBACTAM 3.375 GM VIAL IVPB ONE ×3 (01:37→16:54)
[2019-07-21] MEDS: PIPERACILLIN/TAZOB 3.375 GM 3.375 GM in DEXTROSE 5%-WATER - 50 ML IVPB SCH ×3 (02:02→17:52)
[2019-07-21] MEDS: DOCUSATE SODIUM 100 MG CAPSULE (FP) PO SCH ×3 (06:10→21:28)
[2019-07-21] MEDS: TORSEMIDE 20 MG TABLET (FP) PO SCH ×2 (06:10→14:02)
[2019-07-21] MEDS: INSULIN SLIDING SCALE (NOVOLOG) 1 VIAL SQ SCH ×4 (06:11→21:36)
[2019-07-21] MEDS: LEVOTHYROXINE NA 75 MCG TABLET (FP) PO SCH (06:11)
[2019-07-21 07:54] LABS: ALBUMIN 1.8 g/dl (3.4-5.0); BILIRUBIN,TOTAL 1.5 mg/dL (0.2-1); BLOOD UREA NITROGEN 37.1 mg/dL (7-18); CALCIUM 7.7 mg/dL (8.5-10.1); POTASSIUM 3.1 mmol/L (3.5-5.1); TOT PROT 5.8 g/dl (6.4-8.2)
--- NOTE | 2019-07-21 08:45 | PN ---
Progress Note, Physician History of Present Illness: 64 y.o. black woman with PMH HFrEF(severely reduced LVEF; s/p ICD placement), A- fib: was on metoprolol ER and eliquis; the former was changed to amiodarone on a recent admission), HTN, HLD, CAD, s/p NSTEMI (s/p CABG and PCI), DM type 2, COPD (on home 02 5L), hypothyroidism,anemia, overweight, presenting from [facility] after falling out of a wheelchair. The patient says she was being wheeled in the wheelchair, her foot became stuck under the chair and subsequently fell forward. Denies LOC, no incontinence, no tongue biting; however the patient sustained L eyebrow laceration. Noted to have mild L periorbital swelling; no decrease in visual acuity. Denies MOREAU. - Current Medication List Current Medications: Active Medications Apixaban (Eliquis -) 5 mg PO BID [facility], [facility] Last Admin: 07/20/19 21:50 Dose: 5 mg Clotrimazole (Lotrimin 1% Cream -) 1 applic TP DAILY [facility], [facility] Last Admin: 07/20/19 09:54 Dose: 1 applic Docusate Sodium (Colace -) 100 mg PO TID [facility], [facility] Last Admin: 07/21/19 06:10 Dose: 100 mg Daptomycin 650 mg/ Sodium (Chloride) 50 mls @ 100 mls/hr IVPB 1800 [facility], [facility]; Protocol Last Admin: 07/20/19 17:05 Dose: 100 mls/hr Piperacillin Sod/Tazobactam (Sod 3.375 gm/ Dextrose) 50 mls @ 100 mls/hr IVPB Q8H-IV [facility], [facility]; Protocol Last Admin: 07/21/19 02:02 Dose: 100 mls/hr Insulin Aspart (Novolog Vial Sliding Scale -) 1 vial SQ ACHS [facility], [facility]; Protocol Last Admin: 07/21/19 06:11 Dose: Not Given Lactulose (Cephulac (Oral Use)) 20 gm PO TID PRN PRN Reason: CONSTIPATION Levothyroxine Sodium (Synthroid -) 75 mcg PO DAILY@0700 [facility], [facility] Last Admin: 07/21/19 06:11 Dose: 75 mcg Lisinopril (Prinivil) 2.5 mg PO DAILY [facility] Last Admin: 07/20/19 09:53 Dose: 2.5 mg Metoprolol Tartrate (Lopressor Injection -) 5 mg IVPUSH Q4H PRN PRN Reason: TACHYCARDIA Metoprolol Tartrate (Lopressor -) 12.5 mg PO BID [facility], [facility] Last Admin: 07/20/19 21:50 Dose: 12.5 mg Pantoprazole Sodium (Protonix -) 20 mg PO DAILY [facility], [facility] Last Admin: 07/20/19 09:53 Dose: 20 mg Torsemide (Demadex -) 20 mg PO BIDLASIX [facility], [facility] Last Admin: 07/21/19 06:10 Dose: 20 mg - Objective Vital Signs: Vital Signs Temperature 98.7 F 07/20/19 20:00 Pulse Rate 101 H 07/20/19 20:00 Respiratory Rate 20 07/20/19 21:00 Blood Pressure 112/69 07/20/19 20:00 O2 Sat by Pulse Oximetry (%) 100 07/20/19 21:00 Eyes: Yes: WNL, Conjunctiva Clear, EOM Intact HENT: Yes: WNL, Atraumatic, Normocephalic Neck: Yes: WNL, Supple, Trachea Midline Cardiovascular: Yes: WNL, Regular Rate and Rhythm Respiratory: Yes: WNL, Regular, CTA Bilaterally Gastrointestinal: Yes: WNL, Normal Bowel Sounds Genitourinary: Yes: WNL Musculoskeletal: Yes: WNL Extremities: Yes: Erythema Integumentary: Yes: WNL ...Motor Strength: WNL Psychiatric: Yes: WNL Labs: CBC, BMP 07/21/19 06:10 07/21/19 06:10 INR, PTT INR 2.03 (0.83-1.09) H 07/19/19 08:50 Problem List - Problems (1) ARF (acute renal failure) Code(s): N17.9 - ACUTE KIDNEY FAILURE, UNSPECIFIED (2) Abdominal distension Code(s): R14.0 - ABDOMINAL DISTENSION (GASEOUS) (3) Head injury due to trauma Code(s): S09.90XA - UNSPECIFIED INJURY OF HEAD, INITIAL ENCOUNTER Qualifiers: Encounter type: initial encounter Qualified Code(s): S09.90XA - Unspecified injury of head, initial encounter (4) Laceration Code(s): [id number] - (5) Lethargy Code(s): R53.83 - OTHER FATIGUE (6) Leukocytosis Code(s): D72.829 - ELEVATED WHITE BLOOD CELL COUNT, UNSPECIFIED (7) Transaminitis Code(s): R74.0 - NONSPEC ELEV OF LEVELS OF TRANSAMNS & LACTIC ACID DEHYDRGNSE (8) AICD (automatic cardioverter/defibrillator) present Code(s): Z95.810 - PRESENCE OF AUTOMATIC (IMPLANTABLE) CARDIAC DEFIBRILLATOR (9) LIANNA (acute kidney injury) Code(s): N17.9 - ACUTE KIDNEY FAILURE, UNSPECIFIED (10) Acute on chronic renal failure Code(s): N17.9 - ACUTE KIDNEY FAILURE, UNSPECIFIED; N18.9 - CHRONIC KIDNEY DISEASE, UNSPECIFIED (11) Acute on chronic systolic and diastolic heart failure, NYHA class 3 Code(s): I50.43 - ACUTE ON CHRONIC COMBINED SYSTOLIC AND DIASTOLIC HRT FAIL (12) Anasarca Code(s): R60.1 - GENERALIZED EDEMA (13) Anemia Code(s): D64.9 - ANEMIA, UNSPECIFIED (14) Anxiety and depression Code(s): F41.9 - ANXIETY DISORDER, UNSPECIFIED; F32.9 - MAJOR DEPRESSIVE DISORDER, SINGLE EPISODE, UNSPECIFIED (15) Ascites Code(s): R18.8 - OTHER ASCITES Qualifiers: Ascites type: other type Qualified Code(s): R18.8 - Other ascites (16) Bacteremia Code(s): R78.81 - BACTEREMIA (17) CHF exacerbation Code(s): I50.9 - HEART FAILURE, UNSPECIFIED Qualifiers: Heart failure type: unspecified Qualified Code(s): I50.9 - Heart failure, unspecified (18) Chest pain of uncertain etiology Code(s): R07.89 - OTHER CHEST PAIN (19) Chronic abdominal pain Code(s): R10.9 - UNSPECIFIED ABDOMINAL PAIN; G89.29 - OTHER CHRONIC PAIN (20) Diverticulosis Code(s): K57.90 - DVRTCLOS OF INTEST, PART UNSP, W/O PERF OR ABSCESS W/O BLEED (21) Facial swelling Code(s): R22.0 - LOCALIZED SWELLING, MASS AND LUMP, HEAD (22) Fall Code(s): W19.XXXA - UNSPECIFIED FALL, INITIAL ENCOUNTER (23) Hepatopathy Code(s): K76.9 - LIVER DISEASE, UNSPECIFIED (24) Hx of CABG Code(s): Z95.1 - PRESENCE OF AORTOCORONARY BYPASS GRAFT (25) Hypokalemia Code(s): E87.6 - HYPOKALEMIA (26) Hypomagnesemia Code(s): E83.42 - HYPOMAGNESEMIA (27) Hypotension Code(s): I95.9 - HYPOTENSION, UNSPECIFIED (28) Noncompliance with therapeutic plan Code(s): Z91.11 - PATIENT'S NONCOMPLIANCE WITH DIETARY REGIMEN (29) Obesity Code(s): E66.9 - OBESITY, UNSPECIFIED (30) Overweight Code(s): E66.3 - OVERWEIGHT (31) PAF (paroxysmal atrial fibrillation) Code(s): I48.0 - PAROXYSMAL ATRIAL FIBRILLATION (32) Rapid atrial fibrillation Code(s): I48.91 - UNSPECIFIED ATRIAL FIBRILLATION (33) Sepsis Code(s): A41.9 - SEPSIS, UNSPECIFIED ORGANISM (34) Severe pulmonary arterial systolic hypertension Code(s): I27.21 - SECONDARY PULMONARY ARTERIAL HYPERTENSION (35) Shortness of breath Code(s): R06.02 - SHORTNESS OF BREATH (36) Smokes cigarettes Code(s): F17.210 - NICOTINE DEPENDENCE, CIGARETTES, UNCOMPLICATED (37) Subendocardial ischemia Code(s): I24.8 - OTHER FORMS OF ACUTE ISCHEMIC HEART DISEASE (38) Abdominal pain Code(s): R10.9 - UNSPECIFIED ABDOMINAL PAIN Qualifiers: Abdominal location: lower abdomen, unspecified Qualified Code(s): R10.30 - Lower abdominal pain, unspecified (39) Acute combined systolic and diastolic ACC/AHA stage C congestive heart failure Code(s): I50.41 - ACUTE COMBINED SYSTOLIC AND DIASTOLIC (CONGESTIVE) HRT FAIL (40) CHF (congestive heart failure) Code(s): I50.9 - HEART FAILURE, UNSPECIFIED Qualifiers: Heart failure type: unspecified Heart failure chronicity: acute on chronic Qualified Code(s): I50.9 - Heart failure, unspecified (41) Chest pain Code(s): R07.9 - CHEST PAIN, UNSPECIFIED Qualifiers: Chest pain type: unspecified Qualified Code(s): R07.9 - Chest pain, unspecified (42) Chronic systolic congestive heart failure Code(s): I50.22 - CHRONIC SYSTOLIC (CONGESTIVE) HEART FAILURE (43) Cigarette nicotine dependence Code(s): F17.210 - NICOTINE DEPENDENCE, CIGARETTES, UNCOMPLICATED (44) Coronary artery disease Code(s): I25.10 - ATHSCL HEART DISEASE OF [place] CORONARY ARTERY W/O ANG PCTRS (45) Depression Code(s): F32.9 - MAJOR DEPRESSIVE DISORDER, SINGLE EPISODE, UNSPECIFIED (46) Diabetes Code(s): E11.9 - TYPE 2 DIABETES MELLITUS WITHOUT COMPLICATIONS Qualifiers: Diabetes mellitus type: type 2 Diabetes mellitus penitentiary insulin use: with ferry terminal agent use Diabetes mellitus complication status: with unspecified complications (47) Dyspepsia Code(s): K30 - FUNCTIONAL DYSPEPSIA (48) Fatty liver Code(s): K76.0 - FATTY (CHANGE OF) LIVER, NOT ELSEWHERE CLASSIFIED (49) Hyperbilirubinemia Code(s): E80.6 - OTHER DISORDERS OF BILIRUBIN METABOLISM (50) Hyperlipidemia Code(s): E78.5 - HYPERLIPIDEMIA, UNSPECIFIED Qualifiers: Hyperlipidemia type: pure hypercholesterolemia Qualified Code(s): E78.00 - Pure hypercholesterolemia, unspecified; E78.0 - Pure hypercholesterolemia (51) Hypertension Code(s): I10 - ESSENTIAL (PRIMARY) HYPERTENSION Qualifiers: Hypertension type: essential hypertension Qualified Code(s): I10 - Essential (primary) hypertension (52) Hypothyroidism Code(s): E03.9 - HYPOTHYROIDISM, UNSPECIFIED (53) ICD (implantable cardioverter-defibrillator) in place Code(s): Z95.810 - PRESENCE OF AUTOMATIC (IMPLANTABLE) CARDIAC DEFIBRILLATOR (54) Lower extremity edema Code(s): R60.0 - LOCALIZED EDEMA (55) NSVT (nonsustained ventricular tachycardia) Code(s): I47.2 - VENTRICULAR TACHYCARDIA (56) Noncompliance with medication regimen Code(s): Z91.14 - PATIENT'S OTHER NONCOMPLIANCE WITH MEDICATION REGIMEN (57) Peripheral neuropathy Code(s): G62.9 - POLYNEUROPATHY, UNSPECIFIED Qualifiers: Peripheral neuropathy type: polyneuropathy, unspecified Qualified Code(s): G62.9 - Polyneuropathy, unspecified (59) Sleep apnea Code(s): G47.30 - SLEEP APNEA, UNSPECIFIED (60) Sphincter of Oddi dysfunction Code(s): K83.4 - SPASM OF SPHINCTER OF ODDI (61) Status post THR (total hip replacement) Code(s): Z96.649 - PRESENCE OF UNSPECIFIED ARTIFICIAL HIP JOINT (62) Cardiac cirrhosis Code(s): K76.1 - CHRONIC PASSIVE CONGESTION OF LIVER Assessment/Plan - Problems (1) Head injury due to trauma Assessment/Plan: No facial fractures on CT facial bones. No acute intracranial pathology on CT head. Pt is on apixaban for AF. Stopped clopidogrel (fell, with head trauma this admission; unsteady gait, and has until recently taken the bus on her own, with cane for support; no recent cardiac PCI). Code(s): S09.90XA - UNSPECIFIED INJURY OF HEAD, INITIAL ENCOUNTER Qualifiers: Encounter type: initial encounter Qualified Code(s): S09.90XA - Unspecified injury of head, initial encounter (2) AICD (automatic cardioverter/defibrillator) present Assessment/Plan: ICD interrogation this admission: resting HR 120's bpm; no shocks had 3 episodes of VT requiring burst pacing (the last was 04/2019); multiple episodes of NSVT that spontaneously terminated. Pt is off amiodarone (elevated LFTs; acue CHF; thyromegaly); Restarted metoprolol tartrate (12.5 mg bid; increase as tolerated) for AF HR control, LV dysfunction, systolic CHF. F/u thyroid imaging, TFTs. F/U EKG. Code(s): Z95.810 - PRESENCE OF AUTOMATIC (IMPLANTABLE) CARDIAC DEFIBRILLATOR (3) Acute on chronic renal failure Code(s): N17.9 - ACUTE KIDNEY FAILURE, UNSPECIFIED; N18.9 - CHRONIC KIDNEY DISEASE, UNSPECIFIED (4) Acute on chronic systolic and diastolic heart failure, NYHA class 3 Assessment/Plan: +JVD Elevated BNP. ECHO: severely reduced LVEF; biatrial enlargement. Chest CT: pleural effusion ICD interrogated: AF; periods of NSVT. + MRSA blood cultures. Now off amiodarone (elevated LFTs; acute systolic CHF) Restarted metoprolol ER (AF with RVR; periods of NSVT). Pt has been on lisinopril in the past. If unable to start Entresto due to cost, would restart lisinopril if BP, BUN/Cr, electrolytes allow. Plan to restart spironolactone if tolerates the above, once doses are optimized. F/u TFTs (thyromegaly on CT; on Synthroid). On torsemide. F/u BUN/Cr, electrolytes, daily weight, Is and Os. Progressively worsening multiorgan dysfunction. High risk if procedures (e.g. ANGY) are contemplated. Code(s): I50.43 - ACUTE ON CHRONIC COMBINED SYSTOLIC AND DIASTOLIC HRT FAIL (5) Anasarca Assessment/Plan: Anasarca, elevated LFTs (prior workup indicated the latter likely due to acute/ chronic severe systolic CHF). On torsemide. Now on lisinorpil. Code(s): R60.1 - GENERALIZED EDEMA (6) Anemia Code(s): D64.9 - ANEMIA, UNSPECIFIED (7) Diverticulosis Code(s): K57.90 - DVRTCLOS OF INTEST, PART UNSP, W/O PERF OR ABSCESS W/O BLEED (8) Hx of CABG Code(s): Z95.1 - PRESENCE OF AORTOCORONARY BYPASS GRAFT (9) Overweight Code(s): E66.3 - OVERWEIGHT (10) PAF (paroxysmal atrial fibrillation) Assessment/Plan: metoprolol restarted. On apixaban. Code(s): I48.0 - PAROXYSMAL ATRIAL FIBRILLATION (11) Severe pulmonary arterial systolic hypertension Code(s): I27.21 - SECONDARY PULMONARY ARTERIAL HYPERTENSION (12) Cigarette nicotine dependence Code(s): F17.210 - NICOTINE DEPENDENCE, CIGARETTES, UNCOMPLICATED (13) Coronary artery disease Code(s): I25.10 - ATHSCL HEART DISEASE OF [place] CORONARY ARTERY W/O ANG PCTRS (14) Depression Code(s): F32.9 - MAJOR DEPRESSIVE DISORDER, SINGLE EPISODE, UNSPECIFIED (15) Diabetes Code(s): E11.9 - TYPE 2 DIABETES MELLITUS WITHOUT COMPLICATIONS Qualifiers: Diabetes mellitus type: type 2 Diabetes mellitus ferry terminal agent insulin use: with ferry terminal agent use Diabetes mellitus complication status: with unspecified complications (16) Hyperlipidemia Code(s): E78.5 - HYPERLIPIDEMIA, UNSPECIFIED Qualifiers: Hyperlipidemia type: pure hypercholesterolemia Qualified Code(s): E78.00 - Pure hypercholesterolemia, unspecified; E78.0 - Pure hypercholesterolemia (17) Peripheral neuropathy Code(s): G62.9 - POLYNEUROPATHY, UNSPECIFIED Qualifiers: Peripheral neuropathy type: polyneuropathy, unspecified Qualified Code(s): G62.9 - Polyneuropathy, unspecified (18) Sleep apnea Assessment/Plan: Rx (?CPAP) per mucker operator. Code(s): G47.30 - SLEEP APNEA, UNSPECIFIED (19) Status post THR (total hip replacement) Code(s): Z96.649 - PRESENCE OF UNSPECIFIED ARTIFICIAL HIP JOINT (20) Abdominal distension Assessment/Plan: Abdominal Xray: no pneumoperitoneum or pneumotosis; + air in stomach, small bowel, colon. Code(s): R14.0 - ABDOMINAL DISTENSION (GASEOUS) (21) MRSA (methicillin resistant staph aureus) culture positive Assessment/Plan: On Daptomycin (f/u CK: 96 earlier this admission), Zosyn. ECHO (transthoracic): severely reduced LVEF; dilated atriae; moderate MR and TR , without mention of marked structural valve abnormality (though TV and PV not well seen); no pericardial effusion. Temp 100-->99.8 F 07/13/19; afebrile since then. WBC, normal initially, dot to 18; now WNL. Code(s): Z22.322 - CARRIER OR SUSPECTED CARRIER OF METHICILLIN RESIS STAPH (22) Renal dysfunction Code(s): N28.9 - DISORDER OF KIDNEY AND URETER, UNSPECIFIED (23) Elevated troponin Code(s): R79.89 - OTHER SPECIFIED ABNORMAL FINDINGS OF BLOOD CHEMISTRY (24) NSVT (nonsustained ventricular tachycardia) Code(s): I47.2 - VENTRICULAR TACHYCARDIA
[2019-07-21 09:09] LABS: HEMATOCRIT 33.3 % (32.4-45.2); HEMOGLOBIN 10.5 GM/dL (10.7-15.3); MCH 28.1 pg (25.7-33.7); MCHC 31.7 g/dl (32.0-36.0); MEAN CELL VOLUME 88.8 fl (80-96); MEAN PLT VOLUME 7.3 fl (7.5-11.1); PLATELET COUNT 252 K/MM3 (134-434); RBC 3.75 M/mm3 (3.60-5.2); RDW 20.5 % (11.6-15.6); WHITE BLOOD COUNT 7.5 K/mm3 (4.0-10.0)
--- NOTE | 2019-07-21 09:15 | PN ---
Progress Note, Physician Chief Complaint: No complaints. Still a bit distended. No abdominal pain. - Current Medication List Current Medications: Active Medications Apixaban (Eliquis -) 5 mg PO BID [facility] Last Admin: 07/20/19 21:50 Dose: 5 mg Clotrimazole (Lotrimin 1% Cream -) 1 applic TP DAILY [facility] Last Admin: 07/20/19 09:54 Dose: 1 applic Docusate Sodium (Colace -) 100 mg PO TID [facility] Last Admin: 07/21/19 06:10 Dose: 100 mg Daptomycin 650 mg/ Sodium (Chloride) 50 mls @ 100 mls/hr IVPB 1800 [facility]; Protocol Last Admin: 07/20/19 17:05 Dose: 100 mls/hr Piperacillin Sod/Tazobactam (Sod 3.375 gm/ Dextrose) 50 mls @ 100 mls/hr IVPB Q8H-IV [facility]; Protocol Last Admin: 07/21/19 02:02 Dose: 100 mls/hr Insulin Aspart (Novolog Vial Sliding Scale -) 1 vial SQ ACHS [facility]; Protocol Last Admin: 07/21/19 06:11 Dose: Not Given Lactulose (Cephulac (Oral Use)) 20 gm PO TID PRN PRN Reason: CONSTIPATION Levothyroxine Sodium (Synthroid -) 75 mcg PO DAILY@0700 [facility] Last Admin: 07/21/19 06:11 Dose: 75 mcg Lisinopril (Prinivil) 2.5 mg PO DAILY [facility] Last Admin: 07/20/19 09:53 Dose: 2.5 mg Metoprolol Tartrate (Lopressor Injection -) 5 mg IVPUSH Q4H PRN PRN Reason: TACHYCARDIA Metoprolol Tartrate (Lopressor -) 12.5 mg PO BID [facility] Last Admin: 07/20/19 21:50 Dose: 12.5 mg Pantoprazole Sodium (Protonix -) 20 mg PO DAILY [facility] Last Admin: 07/20/19 09:53 Dose: 20 mg Torsemide (Demadex -) 20 mg PO BIDLASIX [facility] Last Admin: 07/21/19 06:10 Dose: 20 mg - Objective Vital Signs: Vital Signs Temperature 98.7 F 07/20/19 20:00 Pulse Rate 101 H 07/20/19 20:00 Respiratory Rate 20 07/20/19 21:00 Blood Pressure 112/69 07/20/19 20:00 O2 Sat by Pulse Oximetry (%) 100 07/20/19 21:00 Constitutional: Yes: No Distress, Calm Gastrointestinal: Yes: Soft, Distention. No: Palpable Mass, Tenderness Labs: CBC, BMP 07/21/19 08:50 07/21/19 06:10 INR, PTT INR 2.03 (0.83-1.09) H 07/19/19 08:50 Assessment/Plan Albumin=1.8 Bilirubin (total)-1.5 ALT=66 Alkaline ypmetgveqms=579 (normal) Impression Improving liver test abnormalities Continue to observe Nutritional support for very low albumin
[2019-07-21] MEDS: METOPROLOL TARTRATE 25 MG TABLET (FP) PO SCH ×2 (11:07→21:28)
[2019-07-21] MEDS: LISINOPRIL 5 MG TABLET (FP) PO SCH (11:15)
[2019-07-21] MEDS: APIXABAN 5 MG TABLET PO SCH ×2 (11:15→21:28)
[2019-07-21] MEDS: PANTOPRAZOLE 20 MG TABLET PO SCH (11:15)
[2019-07-21] MEDS: CLOTRIMAZOLE 1% CREAM 15 GM TUBE TP SCH (11:17)
--- NOTE | 2019-07-21 14:10 | PN ---
Progress Note (short form) - Note Progress Note: no complaints Vital Signs Period Temp Pulse Resp BP Sys/Santoro Pulse Ox Last 24 Hr 98.3 F-98.7 F 101-112 20-20 112-112/69-76 100 cor-rrr llungs decreased bs bases abd-soft, nt, +ascites ext +edema CBC, BMP 07/21/19 08:50 07/21/19 06:10 Microbiology 07/15/19 06:43 Blood - Peripheral Venous Blood Culture - Final NO GROWTH AFTER 5 DAYS INCUBATION 07/15/19 06:43 Blood - Peripheral Venous Blood Culture - Final NO GROWTH AFTER 5 DAYS INCUBATION 07/13/19 13:44 Blood - Peripheral Venous Blood Culture - Final Mr S Aureus Pseudomonas Aeruginosa 07/13/19 13:44 Blood - Peripheral Venous Blood Culture - Final Mr S Aureus 07/13/19 14:00 Urine - Urine - Catheterized Urine Culture - Final NO GROWTH OBTAINED a/p fever/lethargy MRSA bacteremia Day #8 antibiotics pseudomonas bacteremia-day #5/7 antibiotics ICD cardiac cirrhosis daptomycin to continue zosyn for pseudomonas lfts, renal function improved doing well ?need for paracentesis continue daptomycin check cpk in am d/w Dr Cardenas- she is very high risk for any surgical intervention including ANGY given rapid clinical improvement and clearing of bacteremia will plan to switch to vancomycin at time of discharge to complete 6 weeks of antibioitcs she will need surveillance blood cultures after she completes 6 weeks of vancomycin needs to finish 7 days zosyn
[2019-07-21] MEDS ORDERED: POTASSIUM CHLORIDE TABS 20 MEQ TABLET.ER (FP) PO ONE (15:51)
--- NOTE | 2019-07-21 15:53 | PN ---
Progress Note, Physician History of Present Illness: Pt seen and examined at bedside. She is awake and appears comfortable. - Current Medication List Current Medications: Active Medications Apixaban (Eliquis -) 5 mg PO BID [facility] Last Admin: 07/21/19 11:15 Dose: 5 mg Clotrimazole (Lotrimin 1% Cream -) 1 applic TP DAILY [facility] Last Admin: 07/21/19 11:17 Dose: 1 applic Docusate Sodium (Colace -) 100 mg PO TID [facility] Last Admin: 07/21/19 13:07 Dose: 100 mg Daptomycin 650 mg/ Sodium (Chloride) 50 mls @ 100 mls/hr IVPB 1800 [facility]; Protocol Last Admin: 07/20/19 17:05 Dose: 100 mls/hr Piperacillin Sod/Tazobactam (Sod 3.375 gm/ Dextrose) 50 mls @ 100 mls/hr IVPB Q8H-IV [facility]; Protocol Last Admin: 07/21/19 11:07 Dose: 100 mls/hr Insulin Aspart (Novolog Vial Sliding Scale -) 1 vial SQ ACHS [facility]; Protocol Last Admin: 07/21/19 13:18 Dose: Not Given Lactulose (Cephulac (Oral Use)) 20 gm PO TID PRN PRN Reason: CONSTIPATION Levothyroxine Sodium (Synthroid -) 75 mcg PO DAILY@0700 [facility] Last Admin: 07/21/19 06:11 Dose: 75 mcg Lisinopril (Prinivil) 2.5 mg PO DAILY [facility] Last Admin: 07/21/19 11:15 Dose: 2.5 mg Metoprolol Tartrate (Lopressor Injection -) 5 mg IVPUSH Q4H PRN PRN Reason: TACHYCARDIA Metoprolol Tartrate (Lopressor -) 12.5 mg PO BID [facility] Last Admin: 07/21/19 11:07 Dose: 12.5 mg Pantoprazole Sodium (Protonix -) 20 mg PO DAILY [facility] Last Admin: 07/21/19 11:15 Dose: 20 mg Torsemide (Demadex -) 20 mg PO BIDLASIX [facility] Last Admin: 07/21/19 06:10 Dose: 20 mg - Objective Vital Signs: Vital Signs Temperature 97.3 F L 07/21/19 15:24 Pulse Rate 96 H 07/21/19 15:24 Respiratory Rate 20 07/21/19 15:24 Blood Pressure 106/61 07/21/19 15:24 O2 Sat by Pulse Oximetry (%) 100 07/20/19 21:00 Constitutional: Yes: Calm Eyes: Yes: Conjunctiva Clear HENT: Yes: Atraumatic Neck: Yes: Supple Cardiovascular: Yes: S1, S2 Respiratory: Yes: CTA Bilaterally Gastrointestinal: Yes: WNL Genitourinary: Yes: WNL Musculoskeletal: Yes: WNL Edema: Yes Edema: LLE: 1+, RLE: 1+ Integumentary: Yes: Venous Stasis Changes Neurological: Yes: Oriented Labs: CBC, BMP 07/21/19 08:50 07/21/19 06:10 INR, PTT INR 2.03 (0.83-1.09) H 07/19/19 08:50 Problem List - Problems (1) ARF (acute renal failure) Code(s): N17.9 - ACUTE KIDNEY FAILURE, UNSPECIFIED (2) Laceration Code(s): [id number] - Assessment/Plan Current Medications Generic Name Dose Route Start Last Admin Trade Name Freq PRN Reason Stop Dose Admin Apixaban 5 mg 07/13/19 22:00 07/21/19 11:15 Eliquis - PO 5 mg BID [facility] Administration Clotrimazole 1 applic 07/14/19 10:00 07/21/19 11:17 Lotrimin 1% Cream - TP 1 applic DAILY [facility] Administration Docusate Sodium 100 mg 07/13/19 14:00 07/21/19 13:07 Colace - PO 100 mg TID [facility] Administration Daptomycin 650 mg/ Sodium 50 mls @ 100 mls/hr 07/15/19 18:00 07/20/19 17:05 Chloride IVPB 100 mls/hr 1800 [facility] Administration Protocol Piperacillin Sod/Tazobactam 50 mls @ 100 mls/hr 07/17/19 18:00 07/21/19 11:07 Sod 3.375 gm/ Dextrose IVPB 100 mls/hr Q8H-IV [facility] Administration Protocol Potassium Chloride 10 meq in 100 mls @ 100 mls/hr 07/21/19 16:00 Potassium Chloride 10 Meq Premix Ivpb - IVPB 07/21/19 17:59 Q60M [facility] Insulin Aspart 1 vial 07/13/19 16:30 07/21/19 13:18 Novolog Vial Sliding Scale - SQ Not Given ACHS [facility] Protocol Lactulose 20 gm 07/20/19 15:28 Cephulac (Oral Use) PO TID PRN CONSTIPATION Levothyroxine Sodium 75 mcg 07/14/19 07:00 07/21/19 06:11 Synthroid - PO 75 mcg DAILY@0700 [facility] Administration Lisinopril 2.5 mg 07/18/19 10:00 07/21/19 11:15 Prinivil PO 2.5 mg DAILY [facility] Administration Metoprolol Tartrate 5 mg 07/14/19 10:06 Lopressor Injection - IVPUSH Q4H PRN TACHYCARDIA Metoprolol Tartrate 12.5 mg 07/15/19 11:00 07/21/19 11:07 Lopressor - PO 12.5 mg BID [facility] Administration Pantoprazole Sodium 20 mg 07/16/19 10:00 07/21/19 11:15 Protonix - PO 20 mg DAILY [facility] Administration Potassium Chloride 40 meq 07/21/19 15:51 K-Dur - PO 07/21/19 15:52 ONCE ONE Torsemide 20 mg 07/13/19 14:00 07/21/19 06:10 Demadex - PO 20 mg BIDLASIX [facility] Administration Impression 1. LIANNA 2. CHF 3. volume overload 4. HTN 5. HLD 6. DM 7. CAD 8. COPD 9. active smoker 10. anasarca 11. hypotension 12. UTI 13. sepsis 14. bacteremia Plan - replace potassium - renal function is improving - cont torsemide - monitor volume status
[2019-07-21] MEDS: KCL 10 MEQ IVPB 10 MEQ/100 ML INFUS.BAG IVPB SCH ×2 (17:01→17:53)
[2019-07-21] MEDS: DAPTOMYCIN 650 MG in SODIUM CHLORIDE 50 ML IVPB SCH (18:16)
[2019-07-21] MEDS: ACETAMINOPHEN 325 MG TABLET (FP) PO PRN (21:34)
[2019-07-22] MEDS ORDERED: DEXTROSE 5%-WATER - 50 ML IVPB ONE ×2 (03:03→09:31)
[2019-07-22] MEDS ORDERED: PIPERACILLIN/TAZOBACTAM 3.375 GM VIAL IVPB ONE ×2 (03:03→09:31)
[2019-07-22] MEDS: PIPERACILLIN/TAZOB 3.375 GM 3.375 GM in DEXTROSE 5%-WATER - 50 ML IVPB SCH ×2 (03:09→10:36)
[2019-07-22] MEDS: DOCUSATE SODIUM 100 MG CAPSULE (FP) PO SCH ×2 (06:30→14:35)
[2019-07-22] MEDS: LEVOTHYROXINE NA 75 MCG TABLET (FP) PO SCH (06:30)
[2019-07-22] MEDS: TORSEMIDE 20 MG TABLET (FP) PO SCH ×2 (06:30→14:35)
[2019-07-22] MEDS: ACETAMINOPHEN 325 MG TABLET (FP) PO PRN (06:31)
[2019-07-22] MEDS: INSULIN SLIDING SCALE (NOVOLOG) 1 VIAL SQ SCH ×2 (06:37→14:09)
--- NOTE | 2019-07-22 08:05 | DS ---
Physical Examination Vital Signs: Vital Signs Temperature 97.8 F 07/22/19 06:50 Pulse Rate 69 07/22/19 06:50 Respiratory Rate 20 07/22/19 06:50 Blood Pressure 112/64 07/22/19 06:50 O2 Sat by Pulse Oximetry (%) 99 07/21/19 21:00 Labs: CBC, BMP 07/21/19 08:50 07/21/19 06:10 Discharge Summary Problems reviewed: Yes Reason For Visit: LACERATION, TRAUMATIC INJURY OF HEAD Current Active Problems ARF (acute renal failure) (Acute) Abdominal distension (Acute) Abnormal liver function tests (Acute) Elevated troponin (Acute) Head injury due to trauma (Acute) Lethargy (Acute) Leukocytosis (Acute) MRSA (methicillin resistant staph aureus) culture positive (Acute) NSVT (nonsustained ventricular tachycardia) (Acute) Renal dysfunction (Acute) Toxic metabolic encephalopathy (Acute) Transaminitis (Acute) Urinary retention (Acute) Condition: Fair - Instructions Referrals: Parrish Ferrer MD [Primary Care Provider] - Disposition[facility] - Home Medications Comprehensive Discharge Medication List: Ambulatory Orders Levothyroxine [Synthroid -] 75 mcg PO DAILY@0700 30 Days #30 tablet 08/02/17 Apixaban [Eliquis -] 5 mg PO BID #60 tablet 05/02/19 Clotrimazole 1 applic TP DAILY 07/10/19 Torsemide 20 mg PO BID 07/10/19 Acetaminophen [Tylenol .Regular Strength -] 650 mg PO Q6H PRN tablet 07/22/19 Docusate Sodium [Colace -] 100 mg PO TID capsule 07/22/19 Insulin Sliding Scale [Novolog Vial Sliding Scale -] 1 vial SQ ACHS units 07/21 Lactulose (Oral Use) [Cephulac -] 20 gm PO TID PRN udc 07/22/19 Lisinopril [Prinivil] 2.5 mg PO DAILY tablet 07/22/19 Metoprolol Tartrate [Lopressor -] 12.5 mg PO BID tablet 07/22/19 Pantoprazole Sodium [Protonix -] 20 mg PO DAILY tablet.ec 07/22/19 Vancomycin 1 gm Premix - 1 gm IV DAILY #30 bag 07/22/19
[2019-07-22 08:38] LABS: BLOOD UREA NITROGEN 26.3 mg/dL (7-18); CALCIUM 7.2 mg/dL (8.5-10.1); CREATININE 0.8 mg/dL (0.55-1.3); MAGNESIUM 1.5 mg/dL (1.8-2.4)
[2019-07-22] MEDS ORDERED: PANTOPRAZOLE 40 MG TABLET PO ONE (09:12)
[2019-07-22] MEDS ORDERED: POTASSIUM CHLORIDE TABS 20 MEQ TABLET.ER (FP) PO ONE ×2 (09:13→17:00)
[2019-07-22] MEDS ORDERED: PT OWN MED DRAWER 7, Y5N ONE (09:31)
[2019-07-22] MEDS: LISINOPRIL 5 MG TABLET (FP) PO SCH (10:37)
[2019-07-22] MEDS: APIXABAN 5 MG TABLET PO SCH (10:37)
[2019-07-22] MEDS: PANTOPRAZOLE 20 MG TABLET PO SCH (10:37)
[2019-07-22] MEDS: METOPROLOL TARTRATE 25 MG TABLET (FP) PO SCH (10:37)
[2019-07-22] MEDS: CLOTRIMAZOLE 1% CREAM 15 GM TUBE TP SCH (10:38)
[2019-07-22] MEDS ORDERED: INSULIN (NOVOLOG) ASPART 100 UNITS/ML 10ML VIAL ONE (12:26)
[2019-07-22 15:27] VITALS: BP 121/59; PULSE 108; TEMP 98.4
--- NOTE | 2019-07-22 16:23 | PN ---
Progress Note, Physician History of Present Illness: Pt seen and examined at bedside. She is awake and alert. She denies shortness of breath. - Current Medication List Current Medications: Active Medications Acetaminophen (Tylenol -) 650 mg PO Q6H PRN PRN Reason: PAIN LEVEL 1-5 Last Admin: 07/22/19 06:31 Dose: 650 mg Apixaban (Eliquis -) 5 mg PO BID [facility] Last Admin: 07/22/19 10:37 Dose: 5 mg Clotrimazole (Lotrimin 1% Cream -) 1 applic TP DAILY [facility] Last Admin: 07/22/19 10:38 Dose: 1 applic Docusate Sodium (Colace -) 100 mg PO TID [facility] Last Admin: 07/22/19 06:30 Dose: 100 mg Daptomycin 650 mg/ Sodium (Chloride) 50 mls @ 100 mls/hr IVPB 1800 [facility]; Protocol Last Admin: 07/21/19 18:16 Dose: 100 mls/hr Piperacillin Sod/Tazobactam (Sod 3.375 gm/ Dextrose) 50 mls @ 100 mls/hr IVPB Q8H-IV [facility]; Protocol Last Admin: 07/22/19 10:36 Dose: 100 mls/hr Insulin Aspart (Novolog Vial Sliding Scale -) 1 vial SQ ACHS [facility]; Protocol Last Admin: 07/22/19 14:09 Dose: Not Given Lactulose (Cephulac (Oral Use)) 20 gm PO TID PRN PRN Reason: CONSTIPATION Levothyroxine Sodium (Synthroid -) 75 mcg PO DAILY@0700 [facility] Last Admin: 07/22/19 06:30 Dose: 75 mcg Lisinopril (Prinivil) 2.5 mg PO DAILY [facility] Last Admin: 07/22/19 10:37 Dose: 2.5 mg Metoprolol Tartrate (Lopressor Injection -) 5 mg IVPUSH Q4H PRN PRN Reason: TACHYCARDIA Metoprolol Tartrate (Lopressor -) 12.5 mg PO BID [facility] Last Admin: 07/22/19 10:37 Dose: 12.5 mg Pantoprazole Sodium (Protonix -) 20 mg PO DAILY [facility] Last Admin: 07/22/19 10:37 Dose: 20 mg Potassium Chloride (K-Dur -) 20 meq PO DAILY [facility] Potassium Chloride (K-Dur -) 40 meq PO ONCE ONE Stop: 07/22/19 16:22 Torsemide (Demadex -) 20 mg PO BIDLASIX [facility] Last Admin: 07/22/19 06:30 Dose: 20 mg - Objective Vital Signs: Vital Signs Temperature 98.4 F 07/22/19 15:26 Pulse Rate 108 H 07/22/19 15:26 Respiratory Rate 20 07/22/19 15:26 Blood Pressure 121/59 L 07/22/19 15:26 O2 Sat by Pulse Oximetry (%) 99 07/21/19 21:00 Constitutional: Yes: Calm Eyes: Yes: Conjunctiva Clear HENT: Yes: Atraumatic Neck: Yes: Supple Cardiovascular: Yes: S1, S2 Respiratory: Yes: On Nasal O2 Gastrointestinal: Yes: Soft Genitourinary: Yes: WNL Extremities: Yes: WNL Edema: Yes Edema: LLE: 1+, RLE: 1+ Integumentary: Yes: Venous Stasis Changes Neurological: Yes: Oriented Psychiatric: Yes: Oriented Labs: CBC, BMP 07/21/19 08:50 07/22/19 07:06 INR, PTT INR 2.03 (0.83-1.09) H 07/19/19 08:50 Problem List - Problems (1) ARF (acute renal failure) Code(s): N17.9 - ACUTE KIDNEY FAILURE, UNSPECIFIED (2) Laceration Code(s): [id number] - Assessment/Plan Current Medications Generic Name Dose Route Start Last Admin Trade Name Freq PRN Reason Stop Dose Admin Acetaminophen 650 mg 07/21/19 18:43 07/22/19 06:31 Tylenol - PO 650 mg Q6H PRN Administration PAIN LEVEL 1-5 Apixaban 5 mg 07/13/19 22:00 07/22/19 10:37 Eliquis - PO 5 mg BID [facility] Administration Clotrimazole 1 applic 07/14/19 10:00 07/22/19 10:38 Lotrimin 1% Cream - TP 1 applic DAILY [facility] Administration Docusate Sodium 100 mg 07/13/19 14:00 07/22/19 06:30 Colace - PO 100 mg TID [facility] Administration Daptomycin 650 mg/ Sodium 50 mls @ 100 mls/hr 07/15/19 18:00 07/21/19 18:16 Chloride IVPB 100 mls/hr 1800 [facility] Administration Protocol Piperacillin Sod/Tazobactam 50 mls @ 100 mls/hr 07/17/19 18:00 07/22/19 10:36 Sod 3.375 gm/ Dextrose IVPB 100 mls/hr Q8H-IV [facility] Administration Protocol Insulin Aspart 1 vial 07/13/19 16:30 07/22/19 14:09 Novolog Vial Sliding Scale - SQ Not Given ACHS [facility] Protocol Lactulose 20 gm 07/20/19 15:28 Cephulac (Oral Use) PO TID PRN CONSTIPATION Levothyroxine Sodium 75 mcg 07/14/19 07:00 07/22/19 06:30 Synthroid - PO 75 mcg DAILY@0700 [facility] Administration Lisinopril 2.5 mg 07/18/19 10:00 07/22/19 10:37 Prinivil PO 2.5 mg DAILY [facility] Administration Magnesium Sulfate 2 gm 07/22/19 16:21 Magnesium Sulfate IVPB 07/22/19 16:22 ONCE ONE Metoprolol Tartrate 5 mg 07/14/19 10:06 Lopressor Injection - IVPUSH Q4H PRN TACHYCARDIA Metoprolol Tartrate 12.5 mg 07/15/19 11:00 07/22/19 10:37 Lopressor - PO 12.5 mg BID [facility] Administration Pantoprazole Sodium 20 mg 07/16/19 10:00 07/22/19 10:37 Protonix - PO 20 mg DAILY [facility] Administration Potassium Chloride 20 meq 07/23/19 10:00 K-Dur - PO DAILY [facility] Potassium Chloride 40 meq 07/22/19 16:21 K-Dur - PO 07/22/19 16:22 ONCE ONE Torsemide 20 mg 07/13/19 14:00 07/22/19 06:30 Demadex - PO 20 mg BIDLASIX [facility] Administration Impression 1. LIANNA 2. CHF 3. volume overload 4. HTN 5. HLD 6. DM 7. CAD 8. COPD 9. active smoker 10. anasarca 11. hypotension 12. UTI 13. sepsis 14. bacteremia Plan - replace potassium and mag - cont diuretics - daily supplements - volume status stable - monitor volume status
[2019-07-22] MEDS ORDERED: MAGNESIUM SULF 50% (8.12 MEQ/2 ML-1 GM VIAL) IVPB ONE (17:00)
[2019-07-23] MEDS ORDERED: POTASSIUM CHLORIDE TABS 20 MEQ TABLET.ER (FP) PO SCH (10:00)
== END 2019-07-22 18:36 | DRG 871 ==
LOC: JER 21:40 → JERBED 07-10 02:26 → J5S 07-11 00:07 → OBSVTOIN 07-13 11:36 → J4W 07-13 12:20 → J6S 07-15 19:19
PROVIDERS: ADMIT Internal Medicine; ATTEND Family Medicine
PROC: 0HQ1XZZ Repair Face Skin, External Approach (ICD-10-PCS; principal; 2019-07-13)
PROC: 02HV33Z Insertion of Infusion Device into Superior Vena Cava, Percutaneous Approach (ICD-10-PCS; 2019-07-22)
PROC: B518ZZA Fluoroscopy of Superior Vena Cava, Guidance (ICD-10-PCS; 2019-07-22)
DX: A41.52 Sepsis due to Pseudomonas (principal); I50.43 Acute on chronic combined systolic (congestive) and diastolic (congestive) heart failure; G93.41 Metabolic encephalopathy; N17.9 Acute kidney failure, unspecified; M62.82 Rhabdomyolysis; J98.11 Atelectasis; I13.0 Hypertensive heart and chronic kidney disease with heart failure and stage 1 through stage 4 chronic kidney disease, or unspecified chronic kidney disease; R18.8 Other ascites; I47.2 Ventricular tachycardia; N39.0 Urinary tract infection, site not specified; S00.03XA Contusion of scalp, initial encounter; S01.112A Laceration without foreign body of left eyelid and periocular area, initial encounter; S09.90XA Unspecified injury of head, initial encounter; I10 Essential (primary) hypertension; E78.5 Hyperlipidemia, unspecified; I48.91 Unspecified atrial fibrillation; I25.10 Atherosclerotic heart disease of native coronary artery without angina pectoris; E11.42 Type 2 diabetes mellitus with diabetic polyneuropathy; J44.9 Chronic obstructive pulmonary disease, unspecified; E03.9 Hypothyroidism, unspecified; I25.2 Old myocardial infarction; N18.9 Chronic kidney disease, unspecified; D72.829 Elevated white blood cell count, unspecified; E11.22 Type 2 diabetes mellitus with diabetic chronic kidney disease; R74.0 Nonspecific elevation of levels of transaminase and lactic acid dehydrogenase [LDH]; I27.21 Secondary pulmonary arterial hypertension; F41.8 Other specified anxiety disorders; M54.5 Low back pain; R60.1 Generalized edema; K76.1 Chronic passive congestion of liver; G47.30 Sleep apnea, unspecified; K72.90 Hepatic failure, unspecified without coma; D64.9 Anemia, unspecified; E66.3 Overweight; Z68.28 Body mass index [BMI] 28.0-28.9, adult; R14.0 Abdominal distension (gaseous); W05.0XXA Fall from non-moving wheelchair, initial encounter; Y92.838 Other recreation area as the place of occurrence of the external cause; Z95.5 Presence of coronary angioplasty implant and graft; Z95.1 Presence of aortocoronary bypass graft; Z96.641 Presence of right artificial hip joint
CPT/HCPCS: 36415; 36569; 36600; 70450-TC; 70486-TC; 71045-TC-FY; 71250-TC; 72125-TC; 72170-TC-FY; 73030-TC-RT-FY; 73090-TC-RT-FY; 73110-TC-RT-FY; 73130-TC-RT-FY; 74019-TC-FY; 76641-TC-LT; 76705-TC; 77001-TC-FY; 80048; 80053; 80074; 81003; 82140; 82272; 82550; 82565; 82570; 82803; 82962; 83540; 83550; 83605; 83735; 84100; 84156; 84300; 84439; 84443; 85025; 85027; 85610; 85730; 87040; 87086; 87186; 87205; 90715; 93005; 93010; 93306-TC; 93971; 97116-GP; 97161-GP; 99285-25; C1751; G0378; G0480; J0878; J1756; J7030

== ENCOUNTER 2019-07-25 15:22 | Inpatient (IN) | payer OTHER, BC ==
--- NOTE | 2019-07-25 16:12 | PDOC ---
History of Present Illness - General Chief Complaint: PICC Line Insertion Stated Complaint: PICK LINE Time Seen by Provider: 07/25/19 16:09 History Source: Patient Exam Limitations: Clinical Condition - History of Present Illness Initial Comments: Nida Prado is a 64 yo F w a pmh of heart failure HFrEF s/p ICD placement, A. fib on Eliquis, hypertension, hyperlipidemia, CAD (s/p CABG and PCI), s/p NSTEMI, status post CABG, diabetes, COPD, and hypothyroidism, wheelch air-bound presents from [facility] for placement of a PICC line. The patient is on contact precautions for MRSA in the blood in IV vancomycin for 30 days. - Speaking with nursing gambling supervisor Eufemia at [facility]: PICC line placed at [facility] via access rep last night and the patient pulled out her PICC line this morning. Requests PICC line be placed by IR. - I called up IR in house and they said they are fully aware of this patient, [facility] called and asked for a PICC line to be placed today, however there is no availability until Sunday. Dr. Quintero the PCP agreed top have patient admitted over the weekend for IV vancomycin and for IR to place the PICC line on Sunday. Advanced directives: DNR PCP: Dr. Villaseñor PSH: CABG 2004, stents, ICD, cholecystectomy Social Hx: Wheelchair bound, Denies smoking, drinking, or other substance abuse. Allergies: aspirin, bananas, tomato Past History - Past Medical History Allergies/Adverse Reactions: Allergies Allergy/AdvReac Type Severity Reaction Status Date / Time aspirin Allergy Mild Rash Verified 07/25/19 15:36 banana Allergy Hives Verified 07/25/19 15:36 tomato Allergy Verified 07/25/19 15:36 Home Medications: Ambulatory Orders Levothyroxine [Synthroid -] 75 mcg PO DAILY@0700 30 Days #30 tablet 08/02/17 Apixaban [Eliquis -] 5 mg PO BID #60 tablet 05/02/19 Clotrimazole 1 applic TP DAILY 07/10/19 Torsemide 20 mg PO BID 07/10/19 Acetaminophen [Tylenol .Regular Strength -] 650 mg PO Q6H PRN tablet 07/22/19 Docusate Sodium [Colace -] 100 mg PO TID capsule 07/22/19 Insulin Sliding Scale [Novolog Vial Sliding Scale -] 1 vial SQ ACHS units 07/22/19 Lactulose (Oral Use) [Cephulac -] 20 gm PO TID PRN udc 07/22/19 Lisinopril [Prinivil] 2.5 mg PO DAILY tablet 07/22/19 Metoprolol Tartrate [Lopressor -] 12.5 mg PO BID tablet 07/22/19 Pantoprazole Sodium [Protonix -] 20 mg PO DAILY tablet.ec 07/22/19 Potassium Chloride [K-Dur -] 20 meq PO DAILY tablet.er 07/22/19 Vancomycin 1 gm Premix - 1 gm IV DAILY #30 bag 07/22/19 Anemia: No Asthma: Yes Cancer: No Cardiac Disorders: Yes (AICD,AR 2013, stents, CABG) CVA: No COPD: Yes CHF: Yes Dementia: No Diabetes: Yes GI Disorders: Yes (PEG tube) Disorders: No HTN: Yes Hypercholesterolemia: Yes Kidney Stones: Yes Liver Disease: Yes Psychiatric Problems: Yes (depression.) Seizures: No Thyroid Disease: Yes (Hypo) - Surgical History Abdominal Surgery: Yes Appendectomy: No Cardiac Surgery: Yes (bypass,stent x2, CABG 2003, ICD/Pacer 7/15) Cholecystectomy: Yes (04/2016) Lung Surgery: (cabg 2003) Neurologic Surgery: No Orthopedic Surgery: Yes (Right THR) - Immunization History Immunization Up to Date: Yes - Psycho Social/Smoking Cessation Hx Smoking Status: No Smoking History: Current some day smoker Have you smoked in the past 12 months: Yes Number of Cigarettes Smoked Daily: 2 If you are a former smoker, when did you quit?: 3 months ago 'Breaking Loose' booklet given: 10/17/18 Hx Alcohol Use: No Drug/Substance Use Hx: No Substance Use Type: Alcohol Hx Substance Use Treatment: No Review of Systems - Review of Systems Able to Perform ROS?: Yes Comments:: CONSTITUTIONAL: Present: fever, chills, fatigue EYES: Absent: visual changes ENT: Absent: ear pain, no sore throat CARDIOVASCULAR: Absent: chest pain, no palpitations RESPIRATORY: Absent: cough, no SOB GI: Present: Abdominal pain Absent: no nausea, no vomiting, no constipation, no diarrhea GENITOURINARY: Absent: dysuria, no frequency, no hematuria MUSKULOSKELETAL: Present: Back pain, arthralgia, myalgia SKIN: Present: rash NEURO: Absent: headache *Physical Exam - Physical Exam GENERAL: Appears ill, frail, worn out, uncomfortable. Moderate distress. Patient continuously complaining of lower back pain. HEENT: Normocephalic, atraumatic. PERRL, EOM intact. CARDIOVASCULAR: Tachycardic rate. Irregularly irregular. PULMONARY: No evidence of respiratory distress. ABDOMEN: There is a rash on the right side of her abdomen. Abdomen is distended. EXTREMITIES: Limited ROM in all four extremities. Right arm appears significant;y more swollen then left arm. SKIN: Warm, dry. NEUROLOGICAL: No focal neurological deficits. ED Treatment Course - LABORATORY CBC & Chemistry Diagram: 07/25/19 17:30 07/25/19 17:30 Medical Decision Making - Medical Decision Making Nida Prado is a 64 yo F w a pmh of heart failure HFrEF s/p ICD placement, A. fib on Eliquis, hypertension, hyperlipidemia, CAD (s/p CABG and PCI), s/p NSTEMI, status post CABG, diabetes, COPD, and hypothyroidism, wheelchair-bound presents from [facility] for placement of a PICC line. The patient is on contact precautions for MRSA in the blood in IV vancomycin for 30 days. - Speaking with nursing gambling supervisor Eufemia at [facility]: PICC line placed at [facility] via access rep last night and the patient pulled out her PICC line this morning. Requests PICC line be placed by IR. - I called up IR in house and they said they are fully aware of this patient, [facility] called and asked for a PICC line to be placed today, however there is no availability until Sunday. Dr. Quintero the PCP agreed top have patient admitted over the weekend for IV vancomycin and for IR to place the PICC line on Sunday. Vital Signs Temp Pulse Resp BP Pulse Ox 98.5 F 95 H 16 94/66 95 07/25/19 15:50 07/25/19 17:39 07/25/19 17:39 07/25/19 17:39 07/25/19 17:39 DDx IBNLT: MRSA infection, Sepsis, electrolyte/metabolic disturbance, heart failure Plan: Labs, Urine, sepctic workup, Abx, admit for PICC line on Sunday by IR and IV Abx until then EKG: A-fib vent rate of 100, nonspecific IV block, RAD, no hypertrophy, no ST elevations or depressions, QTc 492 Disposition: Med/Surg - Vanc in Ed - US guided IV placed by me in ED in left AC Discharge - Discharge Information Problems reviewed: Yes Clinical Impression/Diagnosis: MRSA (methicillin resistant staph aureus) culture positive Occluded PICC line Qualifiers: Encounter type: initial encounter Qualified Code(s): T82.898A - Other specified complication of vascular prosthetic devices, implants and grafts, initial encounter Condition: Stable - Admission Yes - Follow up/Referral - Patient Discharge Instructions - Post Discharge Activity
[2019-07-25] MEDS ORDERED: VANCOMYCIN 1,000 MG in DEXTROSE 5%-WATER - 250 ML IVPB ONE (16:42)
[2019-07-25] MEDS ORDERED: SODIUM CHLORIDE IV ONE (16:48)
[2019-07-25] MEDS ORDERED: VANCOMYCIN 1 GRAM (PRE-DOCKED) 1,000 MG/250 ML BAG IVPB ONE (17:09)
[2019-07-25] MEDS ORDERED: ACETAMINOPHEN 1000 MG/100 ML VIAL (NON FORMULARY) IVPB ONE (17:10)
[2019-07-25] MEDS ORDERED: ACETAMINOPHEN INJECTION 100 ML IVPB ONE (17:12)
--- NOTE | 2019-07-25 17:12 | PDOC ---
Documentation entered by Joy Lainez SCRIBE, acting as scribe for Delia Ramirez MD. Delia Ramirez MD: This documentation has been prepared by the Fatou hough Nirvannie, SCRIBE, under my direction and personally reviewed by me in its entirety. I confirm that the documentation accurately reflects all work, treatment, procedures, and medical decision making performed by me. Attending Attestation - Resident Resident Name: Brice Valdez - ED Attending Attestation I have performed the following: I have examined & evaluated the patient, The case was reviewed & discussed with the resident, I agree w/resident's findings & plan, Exceptions are as noted - HPI HPI: 07/25/19 16:56 The patient is a 64 year old female, with a significant past medical history of heart failure HFrEF (s/p ICD placement), Afib (on Eliquis), HTN, HLD, CAD (s/p CABG and PCI, s/p NSTEMI), DM, COPD, MRSA (on Vancomycin for 30d) and hypothyroidism, wheelchair-bound, who presents to the emergency department via EMS from [facility] for PICC line placement. As per nursing staff, patient accidentally pulled out her PICC line this morning, prompting her arrival to the ED. [facility] staff requests IR place a new PICC line, Allergies: aspirin, bananas, tomato Primary Care Physician: Dr. Ferrer and Ingrid Advanced directives: DNR - Physicial Exam PE: GENERAL: Awake, alert, and fully oriented, in no acute distress HEAD: No signs of trauma EYES: PERRLA, EOMI, sclera anicteric, conjunctiva clear ENT: Auricles normal inspection, hearing grossly normal, nares patent, oropharynx clear without exudates. Moist mucosa NECK: Normal ROM, supple. +JVD. No masses LUNGS: Breath sounds equal, clear to auscultation bilaterally. No wheezes, and no crackles HEART: Regular rate and rhythm, normal S1 and S2, no murmurs, rubs or gallops ABDOMEN: Soft, nontender, normoactive bowel sounds. No guarding, no rebound. No masses EXTREMITIES: +Pitting edema to RUE. Normal range of motion, no edema. No clubbing or cyanosis. No cords, erythema, or tenderness NEUROLOGICAL: Cranial nerves II through XII grossly intact. Normal speech. Motor and sensation intact SKIN: Warm, dry, normal turgor. - Medical Decision Making Pt sent to hospital for PICC line placement for IV abx. Will plan for admission. Discharge - Discharge Information Problems reviewed: Yes Clinical Impression/Diagnosis: MRSA (methicillin resistant staph aureus) culture positive Occluded PICC line Qualifiers: Encounter type: initial encounter Qualified Code(s): T82.898A - Other specified complication of vascular prosthetic devices, implants and grafts, initial encounter Condition: Stable Disposition: [facility] F[facility]
[2019-07-25] MEDS ORDERED: SODIUM CHLORIDE 0.9% 500 ML INFUS.BAG IV ONE (17:36)
[2019-07-25 18:08] LABS: BASO % 0.4 % (0-2.0); HEMATOCRIT 33.8 % (32.4-45.2); HEMOGLOBIN 10.6 GM/dL (10.7-15.3); MCH 27.9 pg (25.7-33.7); MCHC 31.3 g/dl (32.0-36.0); MEAN CELL VOLUME 89.1 fl (80-96); MEAN PLT VOLUME 7.8 fl (7.5-11.1); MONO % 10.4 % (3.8-10.2); NEUT % 75.2 % (42.8-82.8); PLATELET COUNT 294 K/MM3 (134-434); RDW 22.2 % (11.6-15.6); WHITE BLOOD COUNT 7.5 K/mm3 (4.0-10.0)
[2019-07-25 18:27] LABS: BILIRUBIN,TOTAL 1.1 mg/dL (0.2-1); BLOOD UREA NITROGEN 28.4 mg/dL (7-18); CREATININE 0.9 mg/dL (0.55-1.3); POTASSIUM 3.5 mmol/L (3.5-5.1); TOT PROT 6.3 g/dl (6.4-8.2)
[2019-07-25 19:01] LABS: EPI CELLS 0.1 /HPF (0-5/HPF); HYALINE CASTS 9 /lpf (0-8); PH,URINE 5.5 (5.0-8.0); URINE APPEARANCE CLOUDY; URINE BACTERIA 3.8 /hpf (NEGATIVE); URINE BILIRUBIN NEGATIVE (NEGATIVE); URINE COLOR YELLOW; URINE GLUCOSE (UA) NEGATIVE (NEGATIVE); URINE KETONE NEGATIVE (NEGATIVE); URINE LEUK ESTERASE 3+ (NEGATIVE); URINE NITRITE NEGATIVE (NEGATIVE); URINE PROTEIN 1+ (NEGATIVE); URINE UROBILINOGEN 0.2 mg/dL (0.2-1.0); URINE WBC 136 /hpf (0-5)
[2019-07-25 19:14] LABS: INR 1.76 (0.83-1.09); PROTHROMBIN TIME (PATIENT) 20.9 SEC (9.7-13.0)
[2019-07-25 19:17] LABS: ACTIVATED PTT 39.5 SECONDS (25.2-36.5)
[2019-07-25] MEDS ORDERED: LACTULOSE 20 GM/30 ML UDC (FOR ORAL USE ONLY) PO PRN (19:35)
--- NOTE | 2019-07-25 19:37 | HP ---
CHIEF COMPLAINT: PCP:Carissa HISTORY OF PRESENT ILLNESS: Nida Prado is a 64 yo F medical condition of heart failure HFrEF s/p ICD placement, A. fib on Eliquis, hypertension, hyperlipidemia, CAD (s/p CABG and PCI), s/p NSTEMI, status post CABG, diabetes, COPD, and hypothyroidism, wheelchair-bound presents from [facility] for placement of a PICC line. The patient is on contact precautions for MRSA in the blood in IV vancomycin for 30 days. As per ED note picc line unable to be placed only on Sunday, admitted for IV abt, ER course was notable for: (1)afebrile, no leukocytosis (2)labs unremarkable (3) Recent Travel: PAST MEDICAL HISTORY: heart failure HFrEF s/p ICD placement, A. fib on Eliquis, hypertension, hyperlipidemia, CAD (s/p CABG and PCI), s/p NSTEMI, status post CABG, diabetes, COPD, and hypothyroidism PAST SURGICAL HISTORY: CABG 2003, stents, ICD, cholecystectomy Social History: Smoking:denies Alcohol:denies Drugs: denies Allergies aspirin Allergy (Mild, Verified 07/25/19 15:36) Rash banana Allergy (Verified 07/25/19 15:36) Hives tomato Allergy (Verified 07/25/19 15:36) HOME MEDICATIONS: Home Medications Medication Instructions Recorded Levothyroxine [Synthroid -] 75 mcg PO DAILY@0700 30 Days #30 08/02/17 tablet Apixaban [Eliquis -] 5 mg PO BID #60 tablet 05/02/19 Clotrimazole 1 applic TP DAILY 07/10/19 Torsemide 20 mg PO BID 07/10/19 Acetaminophen [Tylenol .Regular 650 mg PO Q6H PRN tablet 07/22/19 Strength -] Docusate Sodium [Colace -] 100 mg PO TID capsule 07/22/19 Insulin Sliding Scale [Novolog 1 vial SQ ACHS units 07/22/19 Vial Sliding Scale -] Lactulose (Oral Use) [Cephulac -] 20 gm PO TID PRN udc 07/22/19 Lisinopril [Prinivil] 2.5 mg PO DAILY tablet 07/22/19 Metoprolol Tartrate [Lopressor -] 12.5 mg PO BID tablet 07/22/19 Pantoprazole Sodium [Protonix -] 20 mg PO DAILY tablet.ec 07/22/19 Potassium Chloride [K-Dur -] 20 meq PO DAILY tablet.er 07/22/19 Vancomycin 1 gm Premix - 1 gm IV DAILY #30 bag 07/22/19 REVIEW OF SYSTEMS CONSTITUTIONAL: Absent: fever, chills, diaphoresis, generalized weakness, malaise, loss of appetite, weight change HEENT: Absent: rhinorrhea, nasal congestion, throat pain, throat swelling, difficulty swallowing, mouth swelling, ear pain, eye pain, visual changes CARDIOVASCULAR: Absent: chest pain, syncope, palpitations, irregular heart rate, lightheadedness, peripheral edema RESPIRATORY: Absent: cough, shortness of breath, dyspnea with exertion, orthopnea, wheezing, stridor, hemoptysis GASTROINTESTINAL: Absent: abdominal pain, abdominal distension, nausea, vomiting, diarrhea, constipation, melena, hematochezia GENITOURINARY: Absent: dysuria, frequency, urgency, hesitancy, hematuria, flank pain, genital pain MUSCULOSKELETAL: Absent: myalgia, arthralgia, joint swelling, back pain, neck pain SKIN: Absent: rash, itching, pallor HEMATOLOGIC/IMMUNOLOGIC: Absent: easy bleeding, easy bruising, lymphadenopathy, frequent infections ENDOCRINE: Absent: unexplained weight gain, unexplained weight loss, heat intolerance, cold intolerance NEUROLOGIC: Absent: headache, focal weakness or paresthesias, dizziness, unsteady gait, seizure, mental status changes, bladder or bowel incontinence PSYCHIATRIC: Absent: anxiety, depression, suicidal or homicidal ideation, hallucinations. PHYSICAL EXAMINATION Vital Signs - 24 hr 07/25/19 07/25/19 07/25/19 15:50 17:39 18:31 Temperature 98.5 F Pulse Rate 92 H Pulse Rate [ 95 H 91 H Right Radial] Respiratory 16 16 16 Rate Blood Pressure 91/62 Blood Pressure 94/66 90/61 [Left Arm] O2 Sat by Pulse 99 95 99 Oximetry (%) GENERAL: Awake, alert, and fully oriented, in no acute distress. HEAD: Normal with no signs of trauma. EYES: Pupils equal, round and reactive to light, extraocular movements intact, sclera anicteric, conjunctiva clear. No lid lag. EARS, NOSE, THROAT: Ears normal, nares patent, oropharynx clear without exudates. Moist mucous membranes. NECK: Normal range of motion, supple without lymphadenopathy, JVD, or masses. LUNGS: Breath sounds equal, clear to auscultation bilaterally. No wheezes, and no crackles. No accessory muscle use. HEART: Regular rate and rhythm, normal S1 and S2 without murmur, rub or gallop. ABDOMEN: Soft, nontender, not distended, normoactive bowel sounds, no guarding, no rebound, no masses. No hepatomegaly or splenomegaly. MUSCULOSKELETAL: Normal range of motion at all joints. No bony deformities or tenderness. No CVA tenderness. UPPER EXTREMITIES: 2+ pulses, warm, well-perfused. No cyanosis. No clubbing. No peripheral edema. LOWER EXTREMITIES: 2+ pulses, warm, well-perfused. No calf tenderness. No peripheral edema. NEUROLOGICAL: Cranial nerves II-XII intact. Normal speech. Normal gait. PSYCHIATRIC: Cooperative. Good eye contact. Appropriate mood and affect. SKIN: Warm, dry, normal turgor, no rashes or lesions noted, normal capillary refill. Laboratory Results - last 24 hr 07/25/19 07/25/19 07/25/19 17:10 17:20 17:30 WBC 7.5 RBC 3.80 Hgb 10.6 L Hct 33.8 MCV 89.1 MCH 27.9 MCHC 31.3 L RDW 22.2 H Plt Count 294 MPV 7.8 Absolute Neuts (auto) 5.7 Neutrophils % 75.2 Lymphocytes % 14.0 D Monocytes % 10.4 H Eosinophils % 0.0 Basophils % 0.4 D Nucleated RBC % 0 PT with INR INR PTT (Actin FS) Sodium Potassium Chloride Carbon Dioxide Anion Gap BUN Creatinine Est GFR (CKD-EPI)AfAm Est GFR (CKD-EPI)NonAf Random Glucose Lactic Acid 1.2 Calcium Total Bilirubin AST ALT Alkaline Phosphatase Troponin I Total Protein Albumin Urine Color Yellow Urine Appearance Cloudy Urine pH 5.5 Ur Specific [place] 1.011 Urine Protein 1+ H Urine Glucose (UA) Negative Urine Ketones Negative Urine Blood 3+ H Urine Nitrite Negative Urine Bilirubin Negative Urine Urobilinogen 0.2 Ur Leukocyte Esterase 3+ H Urine WBC (Auto) 136 Urine Casts (Auto) 9 U Epithel Cells (Auto) 0.1 Urine Bacteria (Auto) 3.8 07/25/19 07/25/19 07/25/19 17:30 17:30 17:30 WBC RBC Hgb Hct MCV MCH MCHC RDW Plt Count MPV Absolute Neuts (auto) Neutrophils % Lymphocytes % Monocytes % Eosinophils % Basophils % Nucleated RBC % PT with INR 20.90 H INR 1.76 H PTT (Actin FS) 39.5 H Sodium 145 Potassium 3.5 Chloride 106 Carbon Dioxide 31 Anion Gap 8 BUN 28.4 H Creatinine 0.9 Est GFR (CKD-EPI)AfAm 77.22 Est GFR (CKD-EPI)NonAf 66.63 Random Glucose 75 Lactic Acid Calcium 8.0 L Total Bilirubin 1.1 H AST 36 ALT 42 Alkaline Phosphatase 107 Troponin I 0.03 Total Protein 6.3 L Albumin 2.0 L Urine Color Urine Appearance Urine pH Ur Specific [place] Urine Protein Urine Glucose (UA) Urine Ketones Urine Blood Urine Nitrite Urine Bilirubin Urine Urobilinogen Ur Leukocyte Esterase Urine WBC (Auto) Urine Casts (Auto) U Epithel Cells (Auto) Urine Bacteria (Auto) ASSESSMENT/PLAN: Nida Prado is a 64 yr old F, medical condition heart failure HFrEF s/p ICD placement, A. fib on Eliquis, hypertension, hyperlipidemia, CAD (s/p CABG and PCI), s/p NSTEMI, status post CABG, diabetes, COPD, and hypothyroidism, wheelchair-bound admitted for picc line placement Admitting Diagnosis PICC line placement Chronic conditions HTN Afib,chronic HLD CAD DM COPD #+MRSA -IV Vanco daily x 30 days -PICC line placement w/ IR Sunday -cont IV abt -contact isolation #HTN #CHF, chronic, diastolic, systolic #HLD #CAD s/p CABG #afib,chronic -c/w statin, ac, BB -on demadex -hold eliquis for PICC line -start Lovenox daily, last dose Sunday -monitor vital sign #Diabetes mellitus -ISS -BGMs ACHS -diabetic diet -hold home oral agents #COPD -saturating well, maintain o2 >90% -continue home O2 5L NC #Hypothyroidism -c/w synthroid DNR Visit type - Emergency Visit Emergency Visit: Yes ED Registration Date: 07/25/19 Care time: The patient presented to the Emergency Department on the above date and was hospitalized for further evaluation of their emergent condition. - New Patient This patient is new to me today: Yes Date on this admission: 07/25/19 - Critical Care Critical Care patient: No
[2019-07-25 20:40] LABS: ANISOCYTOSIS 3+; MACROCYTOSIS 1+; OVALOCYTE 1+; PLATELET ESTIMATE ADEQUATE
[2019-07-25 21:03] LABS: URINE RBC 132 /hpf (0-4); YEAST FEW (NEGATIVE)
[2019-07-25] MEDS: DOCUSATE SODIUM 100 MG CAPSULE (FP) PO SCH (22:16)
[2019-07-25] MEDS: METOPROLOL TARTRATE 25 MG TABLET (FP) PO SCH (22:16)
[2019-07-25] MEDS: INSULIN SLIDING SCALE (NOVOLOG) 1 VIAL SQ SCH (22:23)
[2019-07-26 03:34] VITALS: BMI 28.9
[2019-07-26] MEDS: LEVOTHYROXINE NA 75 MCG TABLET (FP) PO SCH (06:48)
[2019-07-26] MEDS: TORSEMIDE 20 MG TABLET (FP) PO SCH ×2 (06:48→13:15)
[2019-07-26] MEDS: DOCUSATE SODIUM 100 MG CAPSULE (FP) PO SCH ×3 (06:50→22:01)
[2019-07-26] MEDS: INSULIN SLIDING SCALE (NOVOLOG) 1 VIAL SQ SCH ×4 (06:55→21:55)
[2019-07-26] MEDS ORDERED: PT OWN MED DRAWER 7, Y5N ONE ×2 (07:15→13:01)
[2019-07-26 08:01] LABS: ALBUMIN 1.7 g/dl (3.4-5.0); CALCIUM 7.6 mg/dL (8.5-10.1); CREATININE 0.9 mg/dL (0.55-1.3); MAGNESIUM 1.5 mg/dL (1.8-2.4); POTASSIUM 3.3 mmol/L (3.5-5.1); TOT PROT 5.5 g/dl (6.4-8.2)
[2019-07-26 08:05] LABS: HEMATOCRIT 29.8 % (32.4-45.2); HEMOGLOBIN 9.6 GM/dL (10.7-15.3); MCH 28.4 pg (25.7-33.7); MCHC 32.4 g/dl (32.0-36.0); MEAN CELL VOLUME 87.8 fl (80-96); MEAN PLT VOLUME 7.5 fl (7.5-11.1); PLATELET COUNT 227 K/MM3 (134-434); RBC 3.39 M/mm3 (3.60-5.2); RDW 22.1 % (11.6-15.6); WHITE BLOOD COUNT 5.9 K/mm3 (4.0-10.0)
[2019-07-26] MEDS: PANTOPRAZOLE 20 MG TABLET PO SCH (09:25)
[2019-07-26] MEDS: POTASSIUM CHLORIDE TABS 20 MEQ TABLET.ER (FP) PO SCH (09:25)
[2019-07-26] MEDS: LISINOPRIL 5 MG TABLET (FP) PO SCH (09:25)
[2019-07-26] MEDS: METOPROLOL TARTRATE 25 MG TABLET (FP) PO SCH ×2 (09:25→22:01)
[2019-07-26] MEDS: ENOXAPARIN NA (PORCINE) 40 MG/0.4 ML DISP.SYRIN SQ SCH (09:26)
[2019-07-26] MEDS: PATIENT'S OWN MEDICATION (NON-FORMULARY) (Vancomycin 1 Gm Premix - 1 GM) IV SCH (10:00)
--- NOTE | 2019-07-26 10:29 | EKG ---
Test Reason : Blood Pressure : / mmHG Vent. Rate : 100 BPM Atrial Rate : 092 BPM P-R Int : 000 ms QRS Dur : 134 ms QT Int : 382 ms P-R-T Axes : 000 136 -64 degrees QTc Int : 492 ms ATRIAL FIBRILLATION RIGHT AXIS DEVIATION NON-SPECIFIC INTRA-VENTRICULAR CONDUCTION BLOCK CANNOT RULE OUT ANTEROSEPTAL INFARCT (CITED ON OR BEFORE 13-JUL-2019) ABNORMAL ECG WHEN COMPARED WITH ECG OF 18-JUL-2019 08:29, QUESTIONABLE CHANGE IN INITIAL FORCES OF ANTERIOR LEADS Confirmed by Drew Fitzgerald MD ([id number]) on 07/26/2019 10:29:38 AM Referred By: Confirmed By:Drew Fitzgerald MD
[2019-07-26] MEDS ORDERED: POTASSIUM CHLORIDE TABS 20 MEQ TABLET.ER (FP) PO ONE (11:44)
--- NOTE | 2019-07-26 11:50 | CON.CARD ---
Cardiology Consult (text) - Consultation Consultation Note: Called to see this patient. She was just seen by Dr العلي on 07/18/19. Order changed. His service to follow the patient.
--- NOTE | 2019-07-26 11:52 | PN ---
Progress Note, Physician - Current Medication List Current Medications: Active Medications Acetaminophen (Tylenol -) 650 mg PO Q6H PRN PRN Reason: PAIN LEVEL 1-5 Clotrimazole (Lotrimin 1% Cream -) 1 applic TP DAILY [facility] Docusate Sodium (Colace -) 100 mg PO TID [facility] Last Admin: 07/26/19 06:50 Dose: 100 mg Documented by: Enoxaparin Sodium (Lovenox -) 40 mg SQ DAILY [facility] Stop: 07/27/19 10:00 Last Admin: 07/26/19 09:26 Dose: 40 mg Documented by: Insulin Aspart (Novolog Vial Sliding Scale -) 1 vial SQ ACHS [facility]; Protocol Last Admin: 07/26/19 06:55 Dose: Not Given Documented by: Lactulose (Cephulac (Oral Use)) 20 gm PO TID PRN PRN Reason: CONSTIPATION Levothyroxine Sodium (Synthroid -) 75 mcg PO DAILY@0700 [facility] Last Admin: 07/26/19 06:48 Dose: 75 mcg Documented by: Lisinopril (Prinivil) 2.5 mg PO DAILY [facility] Last Admin: 07/26/19 09:25 Dose: 2.5 mg Documented by: Metoprolol Tartrate (Lopressor -) 12.5 mg PO BID [facility] Last Admin: 07/26/19 09:25 Dose: 12.5 mg Documented by: Non-Formulary Medication (Vancomycin 1 Gm Premix -) 1 gm IV DAILY [facility] Pantoprazole Sodium (Protonix -) 20 mg PO DAILY [facility] Last Admin: 07/26/19 09:25 Dose: 20 mg Documented by: Potassium Chloride (K-Dur -) 20 meq PO DAILY [facility] Last Admin: 07/26/19 09:25 Dose: 20 meq Documented by: Potassium Chloride (K-Dur -) 20 meq PO ONCE ONE Stop: 07/26/19 11:45 Torsemide (Demadex -) 20 mg PO BIDLASIX [facility] Last Admin: 07/26/19 06:48 Dose: 20 mg Documented by: Vancomycin HCl (Vancomycin (Pre-Docked)) 1,000 mg IVPB DAILY ONE Stop: 07/26/19 17:01 - Objective Vital Signs: Vital Signs Temperature 97.7 F 07/26/19 06:00 Pulse Rate 94 H 07/26/19 06:00 Respiratory Rate 20 07/26/19 09:00 Blood Pressure 85/52 L 07/26/19 06:00 O2 Sat by Pulse Oximetry (%) 98 07/26/19 09:00 Cardiovascular: Yes: Pulse Irregular, S1, S2 Respiratory: Yes: Regular, CTA Bilaterally Gastrointestinal: Yes: Normal Bowel Sounds, Soft Labs: CBC, BMP 07/26/19 05:45 07/26/19 05:45 INR, PTT INR 1.76 (0.83-1.09) H 07/25/19 17:30 Problem List - Problems (1) Bacteremia Assessment/Plan: - MRSA (methicillin resistant staph aureus) culture positive afebrile BC MRSA, repeat neg VANCO Code(s): R78.81 - BACTEREMIA (2) AICD (automatic cardioverter/defibrillator) present Assessment/Plan: CARDIO Code(s): Z95.810 - PRESENCE OF AUTOMATIC (IMPLANTABLE) CARDIAC DEFIBRILLATOR (3) Anemia Code(s): D64.9 - ANEMIA, UNSPECIFIED (4) PAF (paroxysmal atrial fibrillation) Assessment/Plan: ON ELIQUIS ON HOLD FOR PICC Code(s): I48.0 - PAROXYSMAL ATRIAL FIBRILLATION (5) CHF (congestive heart failure) Assessment/Plan: Torsemide 1L fluid restriction strict I&Os daily weight low Na diet Code(s): I50.9 - HEART FAILURE, UNSPECIFIED Qualifiers: Heart failure type: unspecified Heart failure chronicity: acute on chronic Qualified Code(s): I50.9 - Heart failure, unspecified
[2019-07-26] MEDS: ACETAMINOPHEN 325 MG TABLET (FP) PO PRN ×2 (13:03→18:46)
[2019-07-26] MEDS: CLOTRIMAZOLE 1% CREAM 15 GM TUBE TP SCH (13:03)
[2019-07-26] MEDS ORDERED: VANCOMYCIN 1 GM in D5W (PRE-DOCKED) 1,000 MG/250 ML IVPB ONE (17:00)
[2019-07-26] MEDS ORDERED: traMADol HCL 50 MG TABLET PO ONE (21:30)
[2019-07-26] MEDS ORDERED: FLUCONAZOLE 150 MG TABLET PO ONE (23:10)
[2019-07-26] MEDS ORDERED: diphenhydrAMINE HCL 25 MG CAPSULE (FP) PO ONE (23:13)
[2019-07-26] MEDS ORDERED: SODIUM CHLORIDE 250 ML IV STA (23:40)
[2019-07-26] MEDS ORDERED: ZINC OXIDE/PETROLATUM,WHITE 1 APPLIC OINT...G. TP PRN (23:44)
--- NOTE | 2019-07-26 23:58 | HOSP ---
Subjective - Review of Symptoms Events since last encounter: hospitalist encounter notified by the RN that the patient is screaming stating she has pain to her legs. Patient was medicated earlier, without relief per the RN. was asked to asses. Arrived to bedside, patient is awake, and confused- at baseline. patient points to her groin area when asked where her pain is. At bedside her BP was taken manually by myself 80/56. gentle IVF bolus ordered. Physical Exam performed. See EMR Plan: NS bolus 250ml Zinc Oxide with Petroleum tp- inguinal folds BP recheck by the RN Musculoskeletal: Yes: Extremity Pain Physical Examination Vital Signs: Vital Signs Temperature 98 F 07/26/19 17:27 Pulse Rate 100 H 07/26/19 17:27 Respiratory Rate 20 07/26/19 17:27 Blood Pressure 83/51 L 07/26/19 17:27 O2 Sat by Pulse Oximetry (%) 98 07/26/19 21:00 Constitutional: Yes: Mild Distress, Other (agitated) Eyes: Yes: Conjunctiva Clear, PERRL HENT: Yes: WNL, Atraumatic, Normocephalic Neck: Yes: WNL, Supple, Trachea Midline Cardiovascular: Yes: Regular Rate and Rhythm, S1, S2 Respiratory: Yes: Diminished (bases) Gastrointestinal: Yes: Normal Bowel Sounds, Soft ...Rectal Exam: Yes: Deferred Renal/: Yes: Incontinence Breast(s): Yes: WNL Musculoskeletal: Yes: WNL Extremities: Yes: WNL Edema: No Peripheral Pulses WNL: Yes Integumentary: Yes: Erythema (bilateral inguinal folds bilateral medial upper thighs) Wound/Incision: Yes: Reddened Neurological: Yes: Confusion, Cran Nerves II-XII Intact ...Motor Strength: WNL Psychiatric: Yes: Agitated Labs: CBC, BMP 07/26/19 05:45 07/26/19 05:45 Hospitalist Encounter Assessment: This is a 64 y/o with a past medical history of heart failure HFrEF s/p ICD placement, A. fib on Eliquis, hypertension, hyperlipidemia, CAD (s/p CABG and PCI), s/p NSTEMI, status post CABG, diabetes, COPD, and hypothyroidism, wheelchair-bound presents from [facility] for placement of a PICC line. The patient is on contact precautions for MRSA in the blood in IV vancomycin for 30 days. Admitted for PICC Line placement. Outcome: BP improved post NS bolus Will continue to monitor
[2019-07-27] MEDS: LEVOTHYROXINE NA 75 MCG TABLET (FP) PO SCH (06:11)
[2019-07-27] MEDS: DOCUSATE SODIUM 100 MG CAPSULE (FP) PO SCH ×3 (06:11→21:30)
[2019-07-27] MEDS: TORSEMIDE 20 MG TABLET (FP) PO SCH ×2 (06:11→13:25)
[2019-07-27] MEDS: ACETAMINOPHEN 325 MG TABLET (FP) PO PRN ×2 (06:12→18:42)
[2019-07-27] MEDS: INSULIN SLIDING SCALE (NOVOLOG) 1 VIAL SQ SCH ×4 (06:30→21:32)
[2019-07-27 07:03] LABS: BASO % 0.5 % (0-2.0); HEMATOCRIT 31.1 % (32.4-45.2); HEMOGLOBIN 10.3 GM/dL (10.7-15.3); LYMPH % 13.6 % (8-40); MCH 28.9 pg (25.7-33.7); MCHC 33.1 g/dl (32.0-36.0); MEAN CELL VOLUME 87.3 fl (80-96); MEAN PLT VOLUME 7.4 fl (7.5-11.1); NEUT % 79.9 % (42.8-82.8); PLATELET COUNT 255 K/MM3 (134-434); RBC 3.56 M/mm3 (3.60-5.2)
[2019-07-27 07:34] LABS: ALBUMIN 1.9 g/dl (3.4-5.0); BILIRUBIN,TOTAL 1.6 mg/dL (0.2-1); BLOOD UREA NITROGEN 30.5 mg/dL (7-18); CALCIUM 8.3 mg/dL (8.5-10.1); CREATININE 0.9 mg/dL (0.55-1.3); POTASSIUM 4.1 mmol/L (3.5-5.1); TOT PROT 5.8 g/dl (6.4-8.2)
[2019-07-27] MEDS: LISINOPRIL 5 MG TABLET (FP) PO SCH (09:31)
[2019-07-27] MEDS: PANTOPRAZOLE 20 MG TABLET PO SCH (09:32)
[2019-07-27] MEDS: METOPROLOL TARTRATE 25 MG TABLET (FP) PO SCH ×3 (09:32→21:40)
[2019-07-27] MEDS: POTASSIUM CHLORIDE TABS 20 MEQ TABLET.ER (FP) PO SCH (09:32)
[2019-07-27] MEDS: ENOXAPARIN NA (PORCINE) 40 MG/0.4 ML DISP.SYRIN SQ SCH (09:32)
[2019-07-27] MEDS: CLOTRIMAZOLE 1% CREAM 15 GM TUBE TP SCH (09:33)
--- NOTE | 2019-07-27 11:27 | PN ---
Progress Note, Physician - Current Medication List Current Medications: Active Medications Acetaminophen (Tylenol -) 650 mg PO Q6H PRN PRN Reason: PAIN LEVEL 1-5 Last Admin: 07/27/19 06:12 Dose: 650 mg Documented by: Clotrimazole (Lotrimin 1% Cream -) 1 applic TP DAILY [facility] Last Admin: 07/27/19 09:33 Dose: 1 applic Documented by: Docusate Sodium (Colace -) 100 mg PO TID [facility] Last Admin: 07/27/19 06:11 Dose: 100 mg Documented by: Insulin Aspart (Novolog Vial Sliding Scale -) 1 vial SQ ACHS [facility]; Protocol Last Admin: 07/27/19 11:25 Dose: Not Given Documented by: Lactulose (Cephulac (Oral Use)) 20 gm PO TID PRN PRN Reason: CONSTIPATION Levothyroxine Sodium (Synthroid -) 75 mcg PO DAILY@0700 [facility] Last Admin: 07/27/19 06:11 Dose: 75 mcg Documented by: Lisinopril (Prinivil) 2.5 mg PO DAILY [facility] Last Admin: 07/27/19 09:31 Dose: Not Given Documented by: Metoprolol Tartrate (Lopressor -) 12.5 mg PO BID [facility] Last Admin: 07/27/19 09:32 Dose: 12.5 mg Documented by: Non-Formulary Medication (Vancomycin 1 Gm Premix -) 1 gm IV DAILY [facility] Pantoprazole Sodium (Protonix -) 20 mg PO DAILY [facility] Last Admin: 07/27/19 09:32 Dose: 20 mg Documented by: Petrolatum (Sensi-Care Protective Ointment) 1 applic TP ASDIR PRN PRN Reason: HYGEINE Potassium Chloride (K-Dur -) 20 meq PO DAILY [facility] Last Admin: 07/27/19 09:32 Dose: 20 meq Documented by: Torsemide (Demadex -) 20 mg PO BIDLASIX [facility] Last Admin: 07/27/19 06:11 Dose: 20 mg Documented by: - Objective Vital Signs: Vital Signs Temperature 97.8 F 07/27/19 08:58 Pulse Rate 102 H 07/27/19 08:58 Respiratory Rate 20 07/27/19 08:58 Blood Pressure 108/59 L 07/27/19 08:58 O2 Sat by Pulse Oximetry (%) 98 07/27/19 05:19 Cardiovascular: Yes: S1, S2 Respiratory: Yes: Regular, CTA Bilaterally Gastrointestinal: Yes: Normal Bowel Sounds, Soft Labs: CBC, BMP 07/27/19 06:20 07/27/19 06:20 INR, PTT INR 1.76 (0.83-1.09) H 07/25/19 17:30 Problem List - Problems (1) Bacteremia Assessment/Plan: - MRSA (methicillin resistant staph aureus) culture positive afebrile BC MRSA, repeat neg VANCO Code(s): R78.81 - BACTEREMIA (2) AICD (automatic cardioverter/defibrillator) present Assessment/Plan: CARDIO Code(s): Z95.810 - PRESENCE OF AUTOMATIC (IMPLANTABLE) CARDIAC DEFIBRILLATOR (3) Anemia Code(s): D64.9 - ANEMIA, UNSPECIFIED (4) PAF (paroxysmal atrial fibrillation) Assessment/Plan: ON ELIQUIS ON HOLD FOR PICC Code(s): I48.0 - PAROXYSMAL ATRIAL FIBRILLATION (5) CHF (congestive heart failure) Assessment/Plan: Torsemide 1L fluid restriction strict I&Os daily weight low Na diet Code(s): I50.9 - HEART FAILURE, UNSPECIFIED Qualifiers: Heart failure type: unspecified Heart failure chronicity: acute on chronic Qualified Code(s): I50.9 - Heart failure, unspecified
[2019-07-27] MEDS: PATIENT'S OWN MEDICATION (NON-FORMULARY) (Vancomycin 1 Gm Premix - 1 GM) IV SCH (12:13)
--- NOTE | 2019-07-27 15:53 | PN ---
Progress Note (short form) - Note Progress Note: ID consuilt dictated imp/reccd 64 yo NHR admitted after PICC line was pulled out she is on vancomycin for total 6 weeks to treat for MRSA bacteremia- she got dalptomycin during her hospital stay with negative subsequent cultures (cleared rapidly) continue vancomycin will need surveillance cultures drawn 5 to 7 days after completing antibiotics history of ICD history of cardiac cirrhosis DNR
--- NOTE | 2019-07-27 16:38 | CONS ---
DATE OF CONSULTATION: DATE OF DICTATION: 07/27/2019 REQUESTED BY: Kaila Marcus MD This is a 64-year-old woman who was just hospitalized here from July 13 to July 21. I saw her during that admission. She had sustained a fall and laceration to her forehead, was admitted with this condition. Several days into admission, she became lethargic and hypotensive and was found to have MRSA bacteremia as well as 1 bottle with Pseudomonas. She was treated for Pseudomonas bacteremia with IV antibiotics and decision was made to treat her senior care for her MRSA bacteremia. She got treated in the hospital originally with daptomycin for 8 days with negative blood cultures. She has a history of cardiac cirrhosis and is a very poor operative candidate. Case was discussed at length with Dr. Cage, her primary neuro psych sales specialist, who knows her well, and it was felt she was prohibitively high risk even for a ANGY. Decision was made to treat her conservatively with 6 weeks of IV antibiotics, to be followed by surveillance cultures off antibiotics, as she has a defibrillator. She was switched to vancomycin and discharged on the . She is now re-admitted on the because she pulled her PICC line out, and she has been admitted for IV antibiotics through the weekend until the PICC line can be placed on Sunday. She has no fevers or chills. Her blood cultures were repeated here on the and are negative after 24 hours. Her past medical history is extensive and includes history of cardiac cirrhosis. She has heart failure with an ICD placement, atrial fibrillation, on Eliquis, hypertension, hyperlipidemia, status post CABG, history of MA, diabetes, COPD, hypothyroidism. She is status post cholecystectomy as well. She denies any history of substance use. She is allergic to ASPIRIN, BANANAS, and TOMATOES. Her medications at the long-term include vancomycin, levothyroxine, Eliquis, torsemide, insulin, lisinopril, Protonix, Lopressor, and K-Dur. REVIEW OF SYSTEMS: She currently is complaining of body pain, which is a chronic complaint for her and it appears that she has an indwelling Lam as well. PHYSICAL EXAMINATION: General: She is awake and alert. She has been afebrile since admission. Vital Signs: Temperature is 97.7. Pulse 107. Blood pressure 93/53. Respiratory rate 20. She is saturating 98% on 2 L. HEENT: Normocephalic. Her eyes are anicteric. Neck: Supple. Lungs: Clear to auscultation. Heart: Regular rate and rhythm. Abdomen: Soft. She has some mild lower abdominal discomfort. She has a Lam in place. Extremities: She has trace edema to the legs as well as some flank edema. White count is 8, hemoglobin 10.3, platelets 255. BUN 30, creatinine 0.9. Blood cultures are as previously stated. In summary, this is a 64-year-old woman admitted for reinsertion of PICC line. She has a history of MRSA bacteremia in the setting of an ICD. Plan is for 6 weeks of antibiotics, PICC line will be placed tomorrow. Her vancomycin has been resumed. She will need weekly labs and her trough will need to be followed closely after her treatment is completed. She should have surveillance cultures obtained at least 72 hours after antibiotics are stopped, even up to a week after those are stopped. Number 2, history of ICD in the setting of cardiomyopathy. Lastly, cardiac cirrhosis. The patient has advance directives that include a do not resuscitate. GAYATRI GUERRERO M.D. [id number]
[2019-07-27] MEDS ORDERED: PT OWN MED DRAWER 7, Y5N ONE (16:58)
[2019-07-27] MEDS ORDERED: VANCOMYCIN HCL 1,250 MG in DEXTROSE 5%-WATER - 250 ML IVPB SCH (17:00)
[2019-07-28] MEDS: DOCUSATE SODIUM 100 MG CAPSULE (FP) PO SCH ×2 (05:27→13:53)
[2019-07-28] MEDS: TORSEMIDE 20 MG TABLET (FP) PO SCH ×2 (05:53→13:54)
[2019-07-28] MEDS: ACETAMINOPHEN 325 MG TABLET (FP) PO PRN ×2 (05:57→12:51)
[2019-07-28] MEDS: INSULIN SLIDING SCALE (NOVOLOG) 1 VIAL SQ SCH ×2 (06:13→12:46)
[2019-07-28] MEDS: LEVOTHYROXINE NA 75 MCG TABLET (FP) PO SCH (06:16)
--- NOTE | 2019-07-28 07:33 | DS ---
Physical Examination Vital Signs: Vital Signs Temperature 97.6 F 07/28/19 04:00 Pulse Rate 105 H 07/28/19 04:00 Respiratory Rate 20 07/28/19 04:00 Blood Pressure 104/64 07/28/19 04:00 O2 Sat by Pulse Oximetry (%) 98 07/28/19 05:27 Cardiovascular: Yes: Regular Rate and Rhythm Respiratory: Yes: Regular, CTA Bilaterally Gastrointestinal: Yes: Normal Bowel Sounds, Soft Labs: CBC, BMP 07/27/19 06:20 07/27/19 06:20 Discharge Summary Problems reviewed: Yes Reason For Visit: OCCLUSION OF PERIPHERALLY INSERTED CENTRAL CATHETE Current Active Problems Bacteremia (Acute) MRSA (methicillin resistant staph aureus) culture positive (Acute) Occluded PICC line (Acute) Hospital Course: - Problems (1) Bacteremia Assessment/Plan: - MRSA (methicillin resistant staph aureus) culture positive afebrile BC MRSA, repeat neg VANCO Code(s): R78.81 - BACTEREMIA (2) AICD (automatic cardioverter/defibrillator) present Assessment/Plan: CARDIO Code(s): Z95.810 - PRESENCE OF AUTOMATIC (IMPLANTABLE) CARDIAC DEFIBRILLATOR (3) Anemia Code(s): D64.9 - ANEMIA, UNSPECIFIED (4) PAF (paroxysmal atrial fibrillation) Assessment/Plan: ON ELIQUIS ON HOLD FOR PICC Code(s): I48.0 - PAROXYSMAL ATRIAL FIBRILLATION (5) CHF (congestive heart failure) Assessment/Plan: Torsemide 1L fluid restriction strict I&Os daily weight low Na diet Code(s): I50.9 - HEART FAILURE, UNSPECIFIED Qualifiers: Heart failure type: unspecified Heart failure chronicity: acute on chronic Qualified Code(s): I50.9 - Heart failure, unspecified Condition: Stable - Instructions Referrals: Bridger Quintero MD [Primary Care Provider] - Disposition: ASSISTED FACILITY - Home Medications Comprehensive Discharge Medication List: Ambulatory Orders Levothyroxine [Synthroid -] 75 mcg PO DAILY@0700 30 Days #30 tablet 08/02/17 Apixaban [Eliquis -] 5 mg PO BID #60 tablet 05/02/19 Clotrimazole 1 applic TP DAILY 07/10/19 Torsemide 20 mg PO BID 07/10/19 Acetaminophen [Tylenol .Regular Strength -] 650 mg PO Q6H PRN tablet 07/22/19 Docusate Sodium [Colace -] 100 mg PO TID capsule 07/22/19 Insulin Sliding Scale [Novolog Vial Sliding Scale -] 1 vial SQ ACHS units 07/22/19 Lactulose (Oral Use) [Cephulac -] 20 gm PO TID PRN udc 07/22/19 Lisinopril [Prinivil] 2.5 mg PO DAILY tablet 07/22/19 Metoprolol Tartrate [Lopressor -] 12.5 mg PO BID tablet 07/22/19 Pantoprazole Sodium [Protonix -] 20 mg PO DAILY tablet.ec 07/22/19 Potassium Chloride [K-Dur -] 20 meq PO DAILY tablet.er 07/22/19 Vancomycin HCl 1,250 mg IVPB Q24H vial 07/28/19
[2019-07-28] MEDS: METOPROLOL TARTRATE 25 MG TABLET (FP) PO SCH (09:11)
[2019-07-28] MEDS: POTASSIUM CHLORIDE TABS 20 MEQ TABLET.ER (FP) PO SCH (09:11)
[2019-07-28] MEDS: PANTOPRAZOLE 20 MG TABLET PO SCH (09:14)
[2019-07-28] MEDS: CLOTRIMAZOLE 1% CREAM 15 GM TUBE TP SCH (09:15)
--- NOTE | 2019-07-28 09:54 | CON.CARD ---
Consult Consult Specialty:: Cardiology - History of Present Illness History of Present Illness: Nida Prado is a 64 yo F w a pmh of heart failure HFrEF s/p ICD placement, A. fib on Eliquis, hypertension, hyperlipidemia, CAD (s/p CABG and PCI), s/p NSTEMI, status post CABG, diabetes, COPD, and hypothyroidism, wheelchair-bound presents from [facility] for placement of a PICC line. The patient is on contact precautions for MRSA in the blood in IV vancomycin for 30 days. - Speaking with nursing supervisor wool shearing Eufemia at [facility]: PICC line placed at [facility] via access manager last night and the patient pulled out her PICC line this morning. Requests PICC line be placed by IR. - I called up IR in house and they said they are fully aware of this patient, [facility] called and asked for a PICC line to be placed today, however there is no availability until Sunday. Dr. Quintero the PCP agreed top have patient admitted over the weekend for IV vancomycin and for IR to place the PICC line on Sunday. Advanced directives: DNR PCP: Dr. Villaseñor PSH: CABG 2003, stents, ICD, cholecystectomy Social Hx: Wheelchair bound, Denies smoking, drinking, or other substance abuse. Allergies: aspirin, bananas, tomato PMH Major events 06/23/2014: unsuccessful attempt to open the total occlusion of mRCA 10/2014: systolic CHF-->ICD placement Rt (and Left?) ankle Fx repair s/p CABG in [address] Yanez at [facility] (1V: LORA to LAD) after NE s/p ostial LAD stent (REVA; ostial/prox LAD via the SVG-mLAD) on 09/27/09 s/p posterior base of neck cyst removal 2002 cholecystectomy 2016 Ongoing medical problems CAD (s/p NE 2003); s/p CABG 2003/ s/p REVA of LAD 2009. Coronary angiogram 06/18/2014: ostial LMCA 100% occlusion; LAD and LCx supplied by SVG to LAD; prox RCA stent patent; mid-vessel 100% occlusion;distal vessel suppled by L-R collaterals; SVG-LAD graft patent, with moderated dz of prox LAD (previous stent [id number] LCx (fills retrograde) depression ( 06/28); exacerbated by being let go at work headaches (sees Dr. Oliveira); getting better (reports negative CT & EEG 2011) hperlipidemia HTN hypothyroidism obese s/p NSTEMI 08/2009, leading to PTCA of ostial LAD; one month later, had REVA of ostial LAD. - History Source History Provided By: Patient, Medical Record - Past Medical History BRIM POUNCER: Yes: Peripheral Neuropathy Cardio/Vascular: Yes: CAD (CABG 2003, stents x2, now with defibrillator), CHF (biventricular failure, poor LV function), HTN, Hyperlipdemia, NE (NE in 2003), Murmur, Pulmonary Hypertension, Other (profound biventricular failure, AICD device, CABG 2003, subsequent stents) Pulmonary: Yes: Asthma, COPD Gastrointestinal: Yes: Ascites, Other (Chronic abdominal pain and food intolerances. Had PEG placed 11/03 after suffering vocal cord damage ( EMS intubation). PEG was subsequently removed. ) Hepatobiliary: Yes: Cirrhosis (cardiac cirrhosis), Cholecystitis (s/p lap choly 05/05) Renal/: Yes: Renal Calculi Psych: Yes: Depression Musculoskeletal: Yes: Chronic low back pain, Osteoarthritis Endocrine: Yes: Hypothyroidism - Past Surgical History Past Surgical History: Yes: AICD, CABG, Cholecystectomy (05/05), Colonoscopy, Joint Replacement (right THR), Stent (X2) - Alcohol/Substance Use Hx Alcohol Use: No History of Substance Use: reports: None - Smoking History Smoking history: Current some day smoker Have you smoked in the past 12 months: Yes Aproximately how many cigarettes per day: 2 If you are a former smoker, when did you quit?: 3 months ago - Social History Usual Living Arrangement: Alone ADL: Independent 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 History of Recent Travel: No Home Medications - Allergies Allergies/Adverse Reactions: Allergies Allergy/AdvReac Type Severity Reaction Status Date / Time aspirin Allergy Mild Rash Verified 07/25/19 15:36 banana Allergy Hives Verified 07/25/19 15:36 tomato Allergy Verified 07/25/19 15:36 - Home Medications Home Medications: Ambulatory Orders Levothyroxine [Synthroid -] 75 mcg PO DAILY@0700 30 Days #30 tablet 08/02/17 Apixaban [Eliquis -] 5 mg PO BID #60 tablet 05/02/19 Clotrimazole 1 applic TP DAILY 07/10/19 Torsemide 20 mg PO BID 07/10/19 Acetaminophen [Tylenol .Regular Strength -] 650 mg PO Q6H PRN tablet 07/22/19 Docusate Sodium [Colace -] 100 mg PO TID capsule 07/22/19 Insulin Sliding Scale [Novolog Vial Sliding Scale -] 1 vial SQ ACHS units 07/22/19 Lactulose (Oral Use) [Cephulac -] 20 gm PO TID PRN udc 07/22/19 Lisinopril [Prinivil] 2.5 mg PO DAILY tablet 07/22/19 Metoprolol Tartrate [Lopressor -] 12.5 mg PO BID tablet 07/22/19 Pantoprazole Sodium [Protonix -] 20 mg PO DAILY tablet.ec 07/22/19 Potassium Chloride [K-Dur -] 20 meq PO DAILY tablet.er 07/22/19 Vancomycin HCl 1,250 mg IVPB Q24H vial 07/28/19 Review of Systems - Review of Systems Constitutional: reports: No Symptoms Eyes: reports: No Symptoms HENT: reports: No Symptoms Neck: reports: No Symptoms Cardiovascular: reports: Edema Respiratory: reports: SOB Gastrointestinal: reports: No Symptoms Genitourinary: reports: No Symptoms Breasts: reports: No Symptoms Reported Musculoskeletal: reports: No Symptoms Integumentary: reports: No Symptoms Neurological: reports: No Symptoms Endocrine: reports: No Symptoms Hematology/Lymphatic: reports: No Symptoms Psychiatric: reports: No Symptoms Vital Signs: Vital Signs Temperature 97.6 F 07/28/19 04:00 Pulse Rate 105 H 07/28/19 04:00 Respiratory Rate 20 07/28/19 04:00 Blood Pressure 104/64 07/28/19 04:00 O2 Sat by Pulse Oximetry (%) 98 07/28/19 05:27 Constitutional: Yes: Well Nourished, No Distress, Calm Eyes: Yes: WNL, Conjunctiva Clear, EOM Intact HENT: Yes: WNL, Atraumatic, Normocephalic Neck: Yes: WNL, Supple, Trachea Midline Respiratory: Yes: WNL, Regular, CTA Bilaterally Gastrointestinal: Yes: WNL, Normal Bowel Sounds Renal/: Yes: WNL Cardiovascular: Yes: WNL, Regular Rate and Rhythm Musculoskeletal: Yes: WNL Extremities: Yes: WNL Edema: Yes Integumentary: Yes: WNL Neurological: Yes: WNL, Alert, Oriented ...Motor Strength: WNL Psychiatric: Yes: WNL, Alert, Oriented - Other Data Labs, Other Data: CBC, BMP 07/27/19 06:20 07/27/19 06:20 INR, PTT INR 1.76 (0.83-1.09) H 07/25/19 17:30 Imaging - Results Chest X-ray: Image Reviewed (cm chf) EKG: Image Reviewed (af IVCD rep abn old anterioseptal NE) Assessment/Plan 64 yo F w a pmh of heart failure HFrEF s/p ICD placement, A. fib on Eliquis, hypertension, hyperlipidemia, CAD (s/p CABG and PCI), s/p NSTEMI, status post CABG, diabetes, COPD, and hypothyroidism, wheelchair-bound presents from [facility] for placement of a PICC line. The patient is on contact precautions for MRSA in the blood in IV vancomycin for 30 days. Plan; Replace PICC line
[2019-07-28] MEDS: LISINOPRIL 5 MG TABLET (FP) PO SCH (12:34)
[2019-07-28 14:44] VITALS: BP 91/60; PULSE 100; TEMP 97.7
== END 2019-07-28 15:12 | DRG 949 ==
LOC: JER 15:22 → JERBED 18:55 → J8W 21:04
PROVIDERS: ADMIT Internal Medicine; ATTEND Family Medicine
PROC: 02HV33Z Insertion of Infusion Device into Superior Vena Cava, Percutaneous Approach (ICD-10-PCS; principal; 2019-07-28)
PROC: B518ZZA Fluoroscopy of Superior Vena Cava, Guidance (ICD-10-PCS; 2019-07-28)
DX: Z45.2 Encounter for adjustment and management of vascular access device (principal); I48.20 Chronic atrial fibrillation, unspecified; I50.42 Chronic combined systolic (congestive) and diastolic (congestive) heart failure; R78.81 Bacteremia; I11.0 Hypertensive heart disease with heart failure; I25.10 Atherosclerotic heart disease of native coronary artery without angina pectoris; E78.5 Hyperlipidemia, unspecified; I10 Essential (primary) hypertension; D64.9 Anemia, unspecified; E11.9 Type 2 diabetes mellitus without complications; F32.9 Major depressive disorder, single episode, unspecified; B95.62 Methicillin resistant Staphylococcus aureus infection as the cause of diseases classified elsewhere; J44.9 Chronic obstructive pulmonary disease, unspecified; I25.2 Old myocardial infarction; E03.9 Hypothyroidism, unspecified; Z99.3 Dependence on wheelchair; Z95.1 Presence of aortocoronary bypass graft; Z95.5 Presence of coronary angioplasty implant and graft; Z96.641 Presence of right artificial hip joint
CPT/HCPCS: 36415; 36569; 71045-TC-FY; 77001-TC-FY; 80053; 81003; 82962; 83605; 83735; 84484; 85025; 85027; 85610; 85730; 86850; 86900; 86901; 87040; 87077; 87086; 93005; 93010; 99285-25; C1751; G0463; J0131

== ENCOUNTER 2020-09-28 12:31 | Inpatient (IN) | payer OTHER, BC ==
[2020-09-28] MEDS ORDERED: LIDOCAINE 5% TOPICAL PATCH TP ONE (12:55)
[2020-09-28] MEDS ORDERED: ACETAMINOPHEN 1000 MG/100 ML VIAL (NON FORMULARY) IVPB ONE (12:55)
[2020-09-28] MEDS ORDERED: morphine CARPU-JECT 4 MG/1 ML DISP.SYRIN IVPUSH ONE (12:56)
[2020-09-28 13:10] VITALS: BMI 27.4
[2020-09-28] MEDS ORDERED: DEXTROSE 50%-WATER - 25 GM/50 ML VIAL IVPUSH ONE (13:11)
[2020-09-28] MEDS ORDERED: DEXTROSE 50%-WATER - 25 GM/50 ML VIAL ONE (13:44)
[2020-09-28] MEDS ORDERED: MORPHINE SULFATE 2 MG/ML VIAL ONE (13:52)
[2020-09-28] MEDS ORDERED: ACETAMINOPHEN INJECTION 100 ML IVPB ONE (13:52)
[2020-09-28] MEDS ORDERED: LIDOCAINE 5% TOPICAL PATCH ONE (13:52)
[2020-09-28 13:58] LABS: BASO % 0.3 % (0-2.0); HEMOGLOBIN 11.7 GM/dL (10.7-15.3); LYMPH % 15.4 % (8-40); MCH 26.6 pg (25.7-33.7); MCHC 31.7 g/dl (32.0-36.0); MEAN CELL VOLUME 84.1 fl (80-96); MEAN PLT VOLUME 8.5 fl (7.5-11.1); MONO % 12.5 % (3.8-10.2); NEUT % 71.8 % (42.8-82.8); PLATELET COUNT 233 K/MM3 (134-434); RDW 17.7 % (11.6-15.6); WHITE BLOOD COUNT 5.5 K/mm3 (4.0-10.0)
[2020-09-28 14:18] LABS: CALCIUM 8.8 mg/dL (8.5-10.1)
[2020-09-28 14:19] LABS: ALBUMIN 3.1 g/dl (3.4-5.0); BLOOD UREA NITROGEN 9.5 mg/dL (7-18)
[2020-09-28 14:22] LABS: CREATININE 0.7 mg/dL (0.55-1.3)
[2020-09-28 14:24] LABS: BILIRUBIN,TOTAL 1.2 mg/dL (0.2-1); TOT PROT 7.3 g/dl (6.4-8.2)
[2020-09-28 21:22] LABS: EPI CELLS 3 /uL (0-25.1); HYALINE CASTS 8 /uL (0-3.1); PH,URINE 6.5 (5.0-8.0); URINE APPEARANCE CLEAR; URINE BACTERIA 414 /uL (0-1359); URINE BILIRUBIN NEGATIVE (NEGATIVE); URINE COLOR DK YELLOW; URINE GLUCOSE (UA) NEGATIVE (NEGATIVE); URINE KETONE NEGATIVE (NEGATIVE); URINE LEUK ESTERASE NEGATIVE (NEGATIVE); URINE NITRITE NEGATIVE (NEGATIVE); URINE PROTEIN 1+ (NEGATIVE); URINE RBC 346 /uL (0-23.9)
[2020-09-28 21:30] LABS: COCAINE, UR NEGATIVE ng/ml (CUTOFF=300); URINE BARBITURATES NEGATIVE ng/ml (CUTOFF=200); URINE BENZODIAZEPINES NEGATIVE ng/ml (CUTOFF=200)
[2020-09-28 21:31] LABS: PHENCYCLIDINE,URINE NEGATIVE ng/ml (CUTOFF=25); URINE AMPHETAMINES NEGATIVE ng/ml (CUTOFF=500)
[2020-09-28 21:42] LABS: METHADONE, UR NEGATIVE ng/ml (CUTOFF=300); OPIATES, URI POSITIVE ng/ml (CUTOFF=300)
[2020-09-28] MEDS ORDERED: LIDOCAINE PATCH REMOVAL MC ONE (22:00)
[2020-09-29] MEDS: INSULIN SLIDING SCALE (NOVOLOG) 1 VIAL SQ SCH ×4 (06:05→21:27)
[2020-09-29] MEDS ORDERED: DEXTROSE 50%-WATER - 25 GM/50 ML VIAL IVPUSH ONE (06:06)
[2020-09-29] MEDS ORDERED: DEXTROSE 50%-WATER 25 GM/50 ML DISP.SYRIN IVPUSH ONE (06:30)
[2020-09-29 06:41] LABS: BASO % 0.3 % (0-2.0); HEMATOCRIT 31.7 % (32.4-45.2); HEMOGLOBIN 10.3 GM/dL (10.7-15.3); LYMPH % 16.4 % (8-40); MCH 26.9 pg (25.7-33.7); MCHC 32.5 g/dl (32.0-36.0); MEAN CELL VOLUME 82.7 fl (80-96); MEAN PLT VOLUME 8.1 fl (7.5-11.1); MONO % 11.9 % (3.8-10.2); NEUT % 71.4 % (42.8-82.8); PLATELET COUNT 203 K/MM3 (134-434); RBC 3.84 M/mm3 (3.60-5.2); RDW 17.4 % (11.6-15.6); WHITE BLOOD COUNT 4.3 K/mm3 (4.0-10.0)
[2020-09-29 07:37] LABS: BLOOD UREA NITROGEN 9.7 mg/dL (7-18)
[2020-09-29 07:38] LABS: CALCIUM 8.3 mg/dL (8.5-10.1)
[2020-09-29 07:39] LABS: ALBUMIN 2.6 g/dl (3.4-5.0); MAGNESIUM 1.8 mg/dL (1.8-2.4)
[2020-09-29 07:41] LABS: CREATININE 0.6 mg/dL (0.55-1.3)
[2020-09-29 07:42] LABS: PHOSPHOROUS 3.3 mg/dL (2.5-4.9)
[2020-09-29 07:43] LABS: BILIRUBIN,TOTAL 1.6 mg/dL (0.2-1)
[2020-09-29] MEDS: FAMOTIDINE 20 MG TABLET PO SCH (11:53)
[2020-09-29] MEDS: METOPROLOL TARTRATE 25 MG TABLET (FP) PO SCH ×2 (11:53→21:27)
[2020-09-29] MEDS ORDERED: cefTRIAXone SODIUM 1 GM VIAL ONE (20:46)
[2020-09-29] MEDS ORDERED: DEXTROSE 5%-WATER - 50 ML IVPB ONE (20:46)
[2020-09-29] MEDS: ACETAMINOPHEN 325 MG TABLET (FP) PO PRN (20:55)
[2020-09-29] MEDS: CEFTRIAXONE 1 GM in DEXTROSE 5%-WATER - 50 ML IVPB SCH (20:55)
[2020-09-29] MEDS: POTASSIUM CHLORIDE TABS 20 MEQ TABLET.ER (FP) PO SCH (21:27)
[2020-09-30] MEDS: oxyCODONE HCL 5 MG TABLET PO PRN ×2 (02:01→16:41)
[2020-09-30] MEDS: INSULIN SLIDING SCALE (NOVOLOG) 1 VIAL SQ SCH ×4 (06:00→21:55)
[2020-09-30 07:18] LABS: BASO % 0.4 % (0-2.0); HEMATOCRIT 32.1 % (32.4-45.2); HEMOGLOBIN 10.2 GM/dL (10.7-15.3); LYMPH % 22.5 % (8-40); MCH 26.4 pg (25.7-33.7); MCHC 31.9 g/dl (32.0-36.0); MEAN CELL VOLUME 82.8 fl (80-96); MEAN PLT VOLUME 8.5 fl (7.5-11.1); MONO % 18.8 % (3.8-10.2); NEUT % 58.3 % (42.8-82.8); PLATELET COUNT 201 K/MM3 (134-434); RBC 3.87 M/mm3 (3.60-5.2); RDW 17.8 % (11.6-15.6); WHITE BLOOD COUNT 4.6 K/mm3 (4.0-10.0)
[2020-09-30 07:37] LABS: CHLORIDE 112 mmol/L (98-107); SODIUM 145 mmol/L (136-145)
[2020-09-30 07:43] LABS: ALBUMIN 2.6 g/dl (3.4-5.0); ANION GAP 0 MMOL/L (8-16); CALCIUM 8.7 mg/dL (8.5-10.1); CO2 34 mmol/L (21-32)
[2020-09-30 07:45] LABS: SGPT/ALT 14 U/L (13-61)
[2020-09-30 07:46] LABS: GLUCOSE,RANDOM 76 mg/dL (74-106); MAGNESIUM 1.8 mg/dL (1.8-2.4)
[2020-09-30 07:48] LABS: ALK PHOS 78 U/L (45-117); BILIRUBIN,TOTAL 2.1 mg/dL (0.2-1); SGOT/AST 27 U/L (15-37)
[2020-09-30 07:49] LABS: CREATININE 0.7 mg/dL (0.55-1.3)
[2020-09-30 07:50] LABS: TOT PROT 6.1 g/dl (6.4-8.2)
[2020-09-30] MEDS ORDERED: cefTRIAXone SODIUM 1 GM VIAL ONE (08:31)
[2020-09-30] MEDS ORDERED: DEXTROSE 5%-WATER - 50 ML IVPB ONE (08:31)
[2020-09-30] MEDS: CEFTRIAXONE 1 GM in DEXTROSE 5%-WATER - 50 ML IVPB SCH (09:44)
[2020-09-30] MEDS: METOPROLOL TARTRATE 25 MG TABLET (FP) PO SCH ×2 (09:44→21:54)
[2020-09-30] MEDS: PANTOPRAZOLE 40 MG TABLET PO SCH (09:44)
[2020-09-30] MEDS: FAMOTIDINE 20 MG TABLET PO SCH (09:45)
[2020-09-30] MEDS: POTASSIUM CHLORIDE TABS 20 MEQ TABLET.ER (FP) PO SCH ×2 (09:45→21:55)
[2020-09-30] MEDS ORDERED: LORazepam 1 MG TABLET PO ONE (16:15)
[2020-09-30 18:07] LABS: CHOLESTEROL 117 mg/dL (50-200)
[2020-09-30 18:09] LABS: LDL CHOLESTEROL (ONLY SJRH) 55 mg/dL (5-100); TRIGLYCERIDES 49 mg/dL (0-150)
[2020-09-30 18:10] LABS: HDL CHOLESTEROL 54 mg/dL (40-60)
[2020-09-30 18:12] LABS: N-TERMINAL BNP 3538.9 pg/ml (5-125)
[2020-10-01] MEDS: oxyCODONE HCL 5 MG TABLET PO PRN ×3 (01:53→21:20)
[2020-10-01] MEDS: INSULIN SLIDING SCALE (NOVOLOG) 1 VIAL SQ SCH ×4 (06:09→21:28)
[2020-10-01] MEDS: POTASSIUM CHLORIDE TABS 20 MEQ TABLET.ER (FP) PO SCH ×2 (09:30→21:20)
[2020-10-01] MEDS: PANTOPRAZOLE 40 MG TABLET PO SCH (09:30)
[2020-10-01] MEDS: FAMOTIDINE 20 MG TABLET PO SCH (09:31)
[2020-10-01] MEDS: METOPROLOL TARTRATE 25 MG TABLET (FP) PO SCH ×2 (09:33→21:22)
[2020-10-01 14:18] LABS: BASO % 0.3 % (0-2.0); HEMATOCRIT 35.2 % (32.4-45.2); HEMOGLOBIN 10.9 GM/dL (10.7-15.3); LYMPH % 20.7 % (8-40); MCH 26.4 pg (25.7-33.7); MCHC 31.1 g/dl (32.0-36.0); MEAN PLT VOLUME 8.4 fl (7.5-11.1); MONO % 16.8 % (3.8-10.2); NEUT % 62.2 % (42.8-82.8); PLATELET COUNT 223 K/MM3 (134-434); RBC 4.14 M/mm3 (3.60-5.2); RDW 18.2 % (11.6-15.6); WHITE BLOOD COUNT 4.9 K/mm3 (4.0-10.0)
[2020-10-01 14:53] LABS: BLOOD UREA NITROGEN 13.1 mg/dL (7-18); CALCIUM 9.1 mg/dL (8.5-10.1)
[2020-10-01 14:56] LABS: CREATININE 0.8 mg/dL (0.55-1.3)
[2020-10-01 14:58] LABS: BILIRUBIN,TOTAL 1.2 mg/dL (0.2-1)
[2020-10-02] MEDS: INSULIN SLIDING SCALE (NOVOLOG) 1 VIAL SQ SCH ×4 (06:26→21:10)
[2020-10-02 09:20] LABS: BASO % 0.5 % (0-2.0); HEMATOCRIT 35.9 % (32.4-45.2); HEMOGLOBIN 11.1 GM/dL (10.7-15.3); LYMPH % 18.6 % (8-40); MCH 26.8 pg (25.7-33.7); MEAN CELL VOLUME 86.3 fl (80-96); MEAN PLT VOLUME 8.4 fl (7.5-11.1); MONO % 17.1 % (3.8-10.2); NEUT % 63.8 % (42.8-82.8); PLATELET COUNT 224 K/MM3 (134-434); RBC 4.16 M/mm3 (3.60-5.2); RDW 18.9 % (11.6-15.6); WHITE BLOOD COUNT 5.3 K/mm3 (4.0-10.0)
[2020-10-02 09:49] LABS: BLOOD UREA NITROGEN 12.6 mg/dL (7-18); CALCIUM 9.1 mg/dL (8.5-10.1)
[2020-10-02 09:50] LABS: MAGNESIUM 2.1 mg/dL (1.8-2.4)
[2020-10-02 09:53] LABS: CREATININE 0.9 mg/dL (0.55-1.3)
[2020-10-02 09:54] LABS: BILIRUBIN,TOTAL 1.1 mg/dL (0.2-1)
[2020-10-02] MEDS: POTASSIUM CHLORIDE TABS 20 MEQ TABLET.ER (FP) PO SCH ×2 (10:06→13:36)
[2020-10-02] MEDS: PANTOPRAZOLE 40 MG TABLET PO SCH (10:06)
[2020-10-02] MEDS: METOPROLOL TARTRATE 25 MG TABLET (FP) PO SCH ×2 (10:06→22:01)
[2020-10-02] MEDS: FAMOTIDINE 20 MG TABLET PO SCH (10:06)
[2020-10-02] MEDS ORDERED: SACUBITRIL/VALSARTAN 24 MG-26 MG TABLET PO SCH (12:00)
[2020-10-02] MEDS ORDERED: ONDANSETRON 4 MG/2 ML VIAL IVPUSH PRN (12:35)
[2020-10-02] MEDS: LORazepam 0.5 MG TABLET PO PRN (21:09)
[2020-10-02] MEDS: SACUBITRIL/VALSARTAN 24 MG-26 MG TABLET PO SCH (21:09)
[2020-10-03] MEDS: INSULIN SLIDING SCALE (NOVOLOG) 1 VIAL SQ SCH ×4 (06:29→22:21)
[2020-10-03] MEDS: METOPROLOL TARTRATE 25 MG TABLET (FP) PO SCH ×2 (10:21→21:27)
[2020-10-03] MEDS: SACUBITRIL/VALSARTAN 24 MG-26 MG TABLET PO SCH ×2 (10:22→21:26)
[2020-10-03] MEDS: PANTOPRAZOLE 40 MG TABLET PO SCH (10:22)
[2020-10-03] MEDS: FAMOTIDINE 20 MG TABLET PO SCH (10:22)
[2020-10-03] MEDS ORDERED: ACETAMINOPHEN 1000 MG/100 ML VIAL (NON FORMULARY) IVPB ONE (11:22)
[2020-10-03] MEDS: LORazepam 0.5 MG TABLET PO PRN (21:26)
[2020-10-04] MEDS: oxyCODONE HCL 5 MG TABLET PO PRN ×2 (00:26→23:30)
[2020-10-04] MEDS: ACETAMINOPHEN 325 MG TABLET (FP) PO PRN (06:25)
[2020-10-04] MEDS: INSULIN SLIDING SCALE (NOVOLOG) 1 VIAL SQ SCH ×4 (06:30→21:39)
[2020-10-04 08:24] LABS: BASO % 0.2 % (0-2.0); HEMATOCRIT 33.3 % (32.4-45.2); HEMOGLOBIN 10.4 GM/dL (10.7-15.3); LYMPH % 17.3 % (8-40); MCH 26.6 pg (25.7-33.7); MCHC 31.3 g/dl (32.0-36.0); MEAN CELL VOLUME 85.1 fl (80-96); MEAN PLT VOLUME 8.3 fl (7.5-11.1); MONO % 23.4 % (3.8-10.2); NEUT % 59.1 % (42.8-82.8); PLATELET COUNT 210 K/MM3 (134-434); RBC 3.91 M/mm3 (3.60-5.2); RDW 18.7 % (11.6-15.6)
[2020-10-04 08:57] LABS: ALBUMIN 2.6 g/dl (3.4-5.0); BLOOD UREA NITROGEN 11.6 mg/dL (7-18); CALCIUM 8.7 mg/dL (8.5-10.1); MAGNESIUM 1.9 mg/dL (1.8-2.4)
[2020-10-04 09:01] LABS: CREATININE 0.8 mg/dL (0.55-1.3)
[2020-10-04 09:02] LABS: BILIRUBIN,TOTAL 1.1 mg/dL (0.2-1); TOT PROT 6.1 g/dl (6.4-8.2)
[2020-10-04] MEDS: PANTOPRAZOLE 40 MG TABLET PO SCH (10:27)
[2020-10-04] MEDS: FAMOTIDINE 20 MG TABLET PO SCH (10:27)
[2020-10-04] MEDS: SACUBITRIL/VALSARTAN 24 MG-26 MG TABLET PO SCH ×2 (10:27→21:39)
[2020-10-04] MEDS: METOPROLOL TARTRATE 25 MG TABLET (FP) PO SCH ×2 (12:40→21:39)
[2020-10-05 04:07] LABS: SARS-CoV-2 NAA Not Detected (Not Detected)
[2020-10-05] MEDS: oxyCODONE HCL 5 MG TABLET PO PRN (05:45)
[2020-10-05] MEDS: INSULIN SLIDING SCALE (NOVOLOG) 1 VIAL SQ SCH ×2 (06:18→11:32)
[2020-10-05] MEDS ORDERED: PT OWN MED DRAWER 7, Y5N ONE (10:19)
[2020-10-05] MEDS: METOPROLOL TARTRATE 25 MG TABLET (FP) PO SCH (10:47)
[2020-10-05] MEDS: PANTOPRAZOLE 40 MG TABLET PO SCH (10:47)
[2020-10-05] MEDS: SACUBITRIL/VALSARTAN 24 MG-26 MG TABLET PO SCH (10:48)
[2020-10-05] MEDS: FAMOTIDINE 20 MG TABLET PO SCH (10:48)
[2020-10-05 14:10] VITALS: BP 93/52; PULSE 67; TEMP 97.7
== END 2020-10-05 15:03 | DRG 552 ==
LOC: JER 12:31 → JERBED 19:05 → J4S 23:21
PROVIDERS: ADMIT Internal Medicine; ATTEND Nurse Practitioner Acute Care
DX: M48.02 Spinal stenosis, cervical region (principal); I50.22 Chronic systolic (congestive) heart failure; E78.5 Hyperlipidemia, unspecified; M50.21 Other cervical disc displacement, high cervical region; I48.91 Unspecified atrial fibrillation; J44.9 Chronic obstructive pulmonary disease, unspecified; E03.9 Hypothyroidism, unspecified; I11.0 Hypertensive heart disease with heart failure; I25.10 Atherosclerotic heart disease of native coronary artery without angina pectoris; Z95.1 Presence of aortocoronary bypass graft; E66.9 Obesity, unspecified; I44.0 Atrioventricular block, first degree; I25.2 Old myocardial infarction; F32.9 Major depressive disorder, single episode, unspecified; E11.9 Type 2 diabetes mellitus without complications; D64.9 Anemia, unspecified; Z96.641 Presence of right artificial hip joint; Z95.5 Presence of coronary angioplasty implant and graft; Z99.81 Dependence on supplemental oxygen; Z95.810 Presence of automatic (implantable) cardiac defibrillator; Z68.27 Body mass index [BMI] 27.0-27.9, adult; W07.XXXA Fall from chair, initial encounter; Y92.098 Other place in other non-institutional residence as the place of occurrence of the external cause
CPT/HCPCS: 36415; 70450-TC; 71045-TC-FY; 72125-TC; 73030-TC-RT-FY; 73060-TC-RT-FY; 73523-TC-FY; 73552-TC-RT-FY; 73560-TC-RT-FY; 73590-TC-RT-FY; 80053; 80061; 80307; 81003; 82550; 82553; 82962; 83036; 83721; 83735; 83880; 84100; 84443; 84484; 85025; 87086; 93005; 93010; 97116-GP; 97161-GP; 99285-25; C9803; J0131; U0003; U0005

== ENCOUNTER 2021-12-13 17:43 | Inpatient (IN) | payer BC, OTHER ==
[2021-12-13 20:48] LABS: BASO % 0.9 % (0-2.0); HEMATOCRIT 36.6 % (32.4-45.2); HEMOGLOBIN 11.7 GM/dL (10.7-15.3); LYMPH % 13.9 % (8-40); MCH 27.8 pg (25.7-33.7); MCHC 31.8 g/dl (32.0-36.0); MEAN CELL VOLUME 87.3 fl (80-96); MEAN PLT VOLUME 8.3 fl (7.5-11.1); MONO % 13.2 % (3.8-10.2); PLATELET COUNT 214 10^3/uL (134-434); RBC 4.19 M/mm3 (3.60-5.2); RDW 17.1 % (11.6-15.6); WHITE BLOOD COUNT 5.4 K/mm3 (4.0-10.0)
[2021-12-13 21:11] LABS: CHLORIDE 104 mmol/L (98-107); SODIUM 140 mmol/L (136-145)
[2021-12-13 21:13] LABS: ALBUMIN 3.4 g/dl (3.4-5.0); CALCIUM 9.2 mg/dL (8.5-10.1)
[2021-12-13 21:14] LABS: ANION GAP 8 MMOL/L (8-16); BLOOD UREA NITROGEN 15.2 mg/dL (7-18); CO2 28 mmol/L (21-32); GLUCOSE,RANDOM 106 mg/dL (74-106); MAGNESIUM 2.3 mg/dL (1.8-2.4)
[2021-12-13 21:16] LABS: CREATININE 0.8 mg/dL (0.55-1.3); SGOT/AST 41 U/L (15-37)
[2021-12-13 21:17] LABS: SGPT/ALT 39 U/L (13-61)
[2021-12-13 21:18] LABS: BILIRUBIN,TOTAL 0.9 mg/dL (0.2-1); TOT PROT 7.2 g/dl (6.4-8.2)
[2021-12-13 21:19] LABS: ALK PHOS 78 U/L (45-117)
[2021-12-13 21:22] LABS: N-TERMINAL BNP 6851.8 pg/ml (5-125)
[2021-12-13 21:51] LABS: COCAINE, UR NEGATIVE (NEGATIVE); OPIATES, URI NEGATIVE (NEGATIVE); PHENCYCLIDINE,URINE NEGATIVE (NEGATIVE); URINE BARBITURATES NEGATIVE (NEGATIVE)
[2021-12-13 21:54] LABS: METHADONE, UR NEGATIVE (NEGATIVE); URINE AMPHETAMINES NEGATIVE (NEGATIVE); URINE BENZODIAZEPINES NEGATIVE (NEGATIVE)
[2021-12-13 23:39] LABS: EPI CELLS 2 /uL (0-25.1); HYALINE CASTS 1 /uL (0-3.1); PH,URINE 5.5 (5.0-8.0); URINE APPEARANCE CLEAR; URINE BACTERIA 0 /uL (0-1359); URINE BILIRUBIN NEGATIVE (NEGATIVE); URINE COLOR YELLOW; URINE GLUCOSE (UA) NEGATIVE (NEGATIVE); URINE KETONE NEGATIVE (NEGATIVE); URINE LEUK ESTERASE NEGATIVE (NEGATIVE); URINE NITRITE NEGATIVE (NEGATIVE); URINE PROTEIN TRACE (NEGATIVE); URINE RBC 33 /uL (0-23.9); URINE UROBILINOGEN 0.2 mg/dL (0.2-1.0); URINE WBC 3 /uL (0-25.8)
[2021-12-14 04:22] VITALS: BMI 25.7
[2021-12-14] MEDS: ACETAMINOPHEN 325 MG TABLET (FP) PO PRN ×2 (05:56→22:03)
[2021-12-14] MEDS ORDERED: FUROSEMIDE 20 MG TABLET (FP) PO SCH (06:00)
[2021-12-14 07:49] LABS: HEMATOCRIT 35.4 % (32.4-45.2); HEMOGLOBIN 11.3 GM/dL (10.7-15.3); MCH 27.9 pg (25.7-33.7); MEAN CELL VOLUME 87.1 fl (80-96); MEAN PLT VOLUME 8.2 fl (7.5-11.1); PLATELET COUNT 195 10^3/uL (134-434); RBC 4.06 M/mm3 (3.60-5.2); RDW 16.7 % (11.6-15.6); WHITE BLOOD COUNT 5.5 K/mm3 (4.0-10.0)
[2021-12-14 08:19] LABS: ALBUMIN 3.2 g/dl (3.4-5.0); BLOOD UREA NITROGEN 12.5 mg/dL (7-18); MAGNESIUM 2.1 mg/dL (1.8-2.4)
[2021-12-14 08:21] LABS: TOT PROT 6.6 g/dl (6.4-8.2)
[2021-12-14 08:25] LABS: CREATININE 0.6 mg/dL (0.55-1.3); PHOSPHOROUS 2.4 mg/dL (2.5-4.9)
[2021-12-14 08:26] LABS: BILIRUBIN,TOTAL 1.2 mg/dL (0.2-1)
[2021-12-14] MEDS ORDERED: METOPROLOL TARTRATE 25 MG TABLET (FP) PO SCH (10:00)
[2021-12-14] MEDS: POTASSIUM CHLORIDE ORAL LIQUID 20 MEQ/15 ML PO SCH (10:27)
[2021-12-14] MEDS: GABAPENTIN 100 MG CAPSULE PO SCH ×2 (10:27→22:03)
[2021-12-14] MEDS: SACUBITRIL/VALSARTAN 24 MG-26 MG TABLET PO SCH ×2 (10:27→22:03)
[2021-12-14] MEDS: APIXABAN 5 MG TABLET PO SCH ×2 (10:28→22:03)
[2021-12-14] MEDS: FUROSEMIDE 40 MG/4 ML INJECTABLE VIAL IVPUSH ONE ×2 (14:06→14:11)
[2021-12-14] MEDS ORDERED: FUROSEMIDE 40 MG TABLET (FP) PO ONE (19:00)
[2021-12-15] MEDS ORDERED: FUROSEMIDE 40 MG TABLET (FP) PO ONE (09:38)
[2021-12-15] MEDS ORDERED: FUROSEMIDE 40 MG/4 ML INJECTABLE VIAL IVPUSH SCH (10:00)
[2021-12-15] MEDS: POTASSIUM CHLORIDE ORAL LIQUID 20 MEQ/15 ML PO SCH (10:12)
[2021-12-15] MEDS: APIXABAN 5 MG TABLET PO SCH ×2 (10:13→22:09)
[2021-12-15] MEDS: SACUBITRIL/VALSARTAN 24 MG-26 MG TABLET PO SCH ×2 (10:13→22:09)
[2021-12-15] MEDS: GABAPENTIN 100 MG CAPSULE PO SCH ×2 (10:13→22:09)
[2021-12-15 15:22] LABS: BASO % 0.3 % (0-2.0); HEMOGLOBIN 12.5 GM/dL (10.7-15.3); LYMPH % 13.6 % (8-40); MCH 27.9 pg (25.7-33.7); MCHC 32.8 g/dl (32.0-36.0); MEAN CELL VOLUME 85.1 fl (80-96); MEAN PLT VOLUME 7.6 fl (7.5-11.1); NEUT % 74.1 % (42.8-82.8); PLATELET COUNT 224 10^3/uL (134-434); RBC 4.46 M/mm3 (3.60-5.2); WHITE BLOOD COUNT 4.8 K/mm3 (4.0-10.0)
[2021-12-15 15:50] LABS: BLOOD UREA NITROGEN 12.6 mg/dL (7-18); CALCIUM 9.1 mg/dL (8.5-10.1); MAGNESIUM 2.3 mg/dL (1.8-2.4)
[2021-12-15 15:53] LABS: PHOSPHOROUS 2.6 mg/dL (2.5-4.9)
[2021-12-15 15:54] LABS: CREATININE 0.9 mg/dL (0.55-1.3)
[2021-12-15] MEDS: ACETAMINOPHEN 325 MG TABLET (FP) PO PRN (22:09)
[2021-12-16 07:17] VITALS: RESP 18; TEMP 97.6
[2021-12-16] MEDS: ACETAMINOPHEN 325 MG TABLET (FP) PO PRN (11:09)
[2021-12-16] MEDS: SACUBITRIL/VALSARTAN 24 MG-26 MG TABLET PO SCH (11:09)
[2021-12-16] MEDS: GABAPENTIN 100 MG CAPSULE PO SCH (11:10)
[2021-12-16] MEDS: POTASSIUM CHLORIDE ORAL LIQUID 20 MEQ/15 ML PO SCH (11:10)
[2021-12-16] MEDS: APIXABAN 5 MG TABLET PO SCH (11:10)
[2021-12-16 14:31] VITALS: BP 93/54; PULSE 58
== END 2021-12-16 14:50 | disposition home health service (06) | DRG 291 ==
LOC: JER 17:43 → JERBED 22:14 → J4S 12-14 00:17 → OBSVTOIN 12-14 14:18
PROVIDERS: ADMIT Hospitalist; ATTEND Internal Medicine
DX: I11.0 Hypertensive heart disease with heart failure (principal); I50.23 Acute on chronic systolic (congestive) heart failure; G93.41 Metabolic encephalopathy; E78.5 Hyperlipidemia, unspecified; J44.9 Chronic obstructive pulmonary disease, unspecified; E03.9 Hypothyroidism, unspecified; I25.10 Atherosclerotic heart disease of native coronary artery without angina pectoris; I48.0 Paroxysmal atrial fibrillation; I25.2 Old myocardial infarction; R10.31 Right lower quadrant pain; M48.02 Spinal stenosis, cervical region; R29.6 Repeated falls; I44.7 Left bundle-branch block, unspecified; I27.20 Pulmonary hypertension, unspecified; M54.50 Low back pain, unspecified; E66.9 Obesity, unspecified; Z68.25 Body mass index [BMI] 25.0-25.9, adult; E11.42 Type 2 diabetes mellitus with diabetic polyneuropathy; Z95.5 Presence of coronary angioplasty implant and graft; Z95.810 Presence of automatic (implantable) cardiac defibrillator; Z96.641 Presence of right artificial hip joint; Z95.1 Presence of aortocoronary bypass graft; Z66 Do not resuscitate; Z99.81 Dependence on supplemental oxygen
CPT/HCPCS: 36415; 70450-TC; 71046-TC-FY; 72125-TC; 80048; 80053; 80307; 81003; 82962; 83735; 83880; 84100; 84484; 85025; 85027; 87081; 87086; 93005; 93010; 97116-GP; 97161-GP; 99285-25; C9803-CS; G0378; U0003; U0005

== ENCOUNTER 2022-08-25 01:16 | Inpatient (IN) | payer OTHER, BC ==
[2022-08-25] MEDS ORDERED: SODIUM CHLORIDE 0.9% 500 ML INFUS.BAG IV ONE (01:59)
[2022-08-25] MEDS ORDERED: ACETAMINOPHEN 1000 MG/100 ML BAG IVPB ONE (01:59)
[2022-08-25] MEDS ORDERED: ACETAMINOPHEN INJECTION 100 ML IVPB ONE (01:59)
[2022-08-25] MEDS ORDERED: HALOPERIDOL DECANOATE 500 MG/5ML MDV IM ONE (02:18)
[2022-08-25 02:22] LABS: BASO % 0.4 % (0-2.0); EOS % 0.1 % (0-4.5); HEMATOCRIT 35.3 % (32.4-45.2); HEMOGLOBIN 11.5 GM/dL (10.7-15.3); LYMPH % 21.6 % (8-40); MCH 28.3 pg (25.7-33.7); MCHC 32.7 g/dl (32.0-36.0); MEAN CELL VOLUME 86.7 fl (80-96); MONO % 16.9 % (3.8-10.2); PLATELET COUNT 233 10^3/uL (134-434); RBC 4.07 M/mm3 (3.60-5.2); RDW 18.6 % (11.6-15.6); WHITE BLOOD COUNT 4.9 K/mm3 (4.0-10.0)
[2022-08-25 02:23] LABS: VENOUS BASE EXCESS -1.5 mmol/L (-2-2); VENOUS O2 SATURATION 23.5 % (70-80); VENOUS PCO2 47.3 mmHg (38-52); VENOUS PH 7.335 (7.310-7.410)
[2022-08-25] MEDS ORDERED: HALOPERIDOL LACTATE 5 MG/ML IM ONE (02:26)
[2022-08-25 02:40] LABS: INR 2.99 (0.83-1.09); PROTHROMBIN TIME (PATIENT) 34.3 SEC (9.7-13.0)
[2022-08-25 02:43] LABS: ACTIVATED PTT 41.9 SECONDS (25.2-36.5)
[2022-08-25 02:53] LABS: CREATININE 1.8 mg/dL (0.55-1.3)
[2022-08-25 02:55] LABS: BILIRUBIN,TOTAL 1.2 mg/dL (0.2-1); TOT PROT 7.1 g/dl (6.4-8.2)
[2022-08-25 02:56] LABS: N-TERMINAL BNP 19152.9 pg/ml (5-125)
[2022-08-25] MEDS ORDERED: LORazepam 2 MG/ML SDV VIAL IM ONE (03:38)
[2022-08-25 03:40] LABS: LACTIC ACID 2.5 mmol/L (0.4-2.0)
[2022-08-25] MEDS ORDERED: LORazepam 2 MG/ML SDV VIAL IVPUSH ONE ×2 (03:40→19:45)
[2022-08-25 05:55] LABS: MAGNESIUM 2.6 mg/dL (1.8-2.4)
[2022-08-25 07:39] LABS: ALBUMIN 3.7 g/dl (3.4-5.0); BLOOD UREA NITROGEN 65.3 mg/dL (7-18); CALCIUM 9.2 mg/dL (8.5-10.1); MAGNESIUM 2.4 mg/dL (1.8-2.4)
[2022-08-25 07:42] LABS: CREATININE 1.9 mg/dL (0.55-1.3); PHOSPHOROUS 4.2 mg/dL (2.5-4.9)
[2022-08-25 07:44] LABS: BILIRUBIN,TOTAL 1.2 mg/dL (0.2-1); TOT PROT 6.6 g/dl (6.4-8.2)
[2022-08-25 08:24] LABS: LACTIC ACID 2.2 mmol/L (0.4-2.0)
[2022-08-25] MEDS: INSULIN SLIDING SCALE (NOVOLOG) 1 VIAL SQ SCH ×4 (08:32→22:33)
[2022-08-25 11:46] LABS: BASO % 0.3 % (0-2.0); HEMATOCRIT 36.2 % (32.4-45.2); HEMOGLOBIN 11.9 GM/dL (10.7-15.3); LYMPH % 17.5 % (8-40); MCH 28.4 pg (25.7-33.7); MCHC 32.9 g/dl (32.0-36.0); MEAN CELL VOLUME 86.3 fl (80-96); MEAN PLT VOLUME 8.9 fl (7.5-11.1); MONO % 17.2 % (3.8-10.2); PLATELET COUNT 202 10^3/uL (134-434); RDW 19.4 % (11.6-15.6); WHITE BLOOD COUNT 5.6 K/mm3 (4.0-10.0)
[2022-08-25] MEDS: APIXABAN 5 MG TABLET PO SCH ×2 (14:56→22:44)
[2022-08-25] MEDS: GABAPENTIN 100 MG CAPSULE PO SCH ×2 (14:56→22:44)
[2022-08-25] MEDS ORDERED: SODIUM CHLORIDE 500 ML IV STA (15:12)
[2022-08-25] MEDS ORDERED: ATORVASTATIN CA 20 MG TABLET (FP) PO SCH (22:00)
[2022-08-25] MEDS ORDERED: GABAPENTIN 100 MG CAPSULE ONE ×2 (22:37→22:39)
[2022-08-25] MEDS ORDERED: APIXABAN 5 MG TABLET ONE (22:37)
[2022-08-26] MEDS: INSULIN SLIDING SCALE (NOVOLOG) 1 VIAL SQ SCH ×4 (06:01→21:50)
[2022-08-26 07:23] LABS: BASO % 0.3 % (0-2.0); EOS % 0.1 % (0-4.5); HEMATOCRIT 33.7 % (32.4-45.2); HEMOGLOBIN 11.2 GM/dL (10.7-15.3); LYMPH % 13.1 % (8-40); MCH 28.9 pg (25.7-33.7); MCHC 33.2 g/dl (32.0-36.0); MEAN CELL VOLUME 87.2 fl (80-96); MEAN PLT VOLUME 8.8 fl (7.5-11.1); MONO % 16.9 % (3.8-10.2); NEUT % 69.6 % (42.8-82.8); PLATELET COUNT 175 10^3/uL (134-434); RBC 3.86 M/mm3 (3.60-5.2); RDW 19.1 % (11.6-15.6); WHITE BLOOD COUNT 4.6 K/mm3 (4.0-10.0)
[2022-08-26 08:01] LABS: ALBUMIN 3.5 g/dl (3.4-5.0); BLOOD UREA NITROGEN 49.7 mg/dL (7-18); CALCIUM 9.4 mg/dL (8.5-10.1)
[2022-08-26 08:04] LABS: CREATININE 1.1 mg/dL (0.55-1.3)
[2022-08-26 08:05] LABS: BILIRUBIN,TOTAL 1.5 mg/dL (0.2-1)
[2022-08-26 08:06] LABS: TOT PROT 6.2 g/dl (6.4-8.2)
[2022-08-26] MEDS: GABAPENTIN 100 MG CAPSULE PO SCH ×2 (10:32→21:50)
[2022-08-26] MEDS: APIXABAN 5 MG TABLET PO SCH ×2 (10:32→21:50)
[2022-08-26] MEDS: SACUBITRIL/VALSARTAN 24 MG-26 MG TABLET PO SCH ×2 (15:11→21:50)
[2022-08-26 17:21] LABS: PHOSPHOROUS 2.9 mg/dL (2.5-4.9)
[2022-08-26 19:35] LABS: EPI CELLS 18 /uL (0-25.1); HYALINE CASTS 3 /uL (0-3.1); PH,URINE 5.5 (5.0-8.0); URINE APPEARANCE CLEAR; URINE BACTERIA 6 /uL (0-1359); URINE BILIRUBIN NEGATIVE (NEGATIVE); URINE COLOR DK YELLOW; URINE GLUCOSE (UA) NEGATIVE (NEGATIVE); URINE KETONE NEGATIVE (NEGATIVE); URINE LEUK ESTERASE NEGATIVE (NEGATIVE); URINE NITRITE NEGATIVE (NEGATIVE); URINE PROTEIN 2+ (NEGATIVE); URINE RBC 21 /uL (0-23.9); URINE WBC 7 /uL (0-25.8)
[2022-08-26 21:14] LABS: EPI CELLS 23 /uL (0-25.1); HYALINE CASTS 3 /uL (0-3.1); PH,URINE 5.5 (5.0-8.0); URINE APPEARANCE CLEAR; URINE BACTERIA 6 /uL (0-1359); URINE BILIRUBIN NEGATIVE (NEGATIVE); URINE COLOR DK YELLOW; URINE GLUCOSE (UA) NEGATIVE (NEGATIVE); URINE KETONE NEGATIVE (NEGATIVE); URINE LEUK ESTERASE NEGATIVE (NEGATIVE); URINE NITRITE NEGATIVE (NEGATIVE); URINE PROTEIN 2+ (NEGATIVE); URINE RBC 18 /uL (0-23.9); URINE WBC 9 /uL (0-25.8)
[2022-08-26 22:09] LABS: COCAINE, UR NEGATIVE (NEGATIVE); METHADONE, UR NEGATIVE (NEGATIVE); OPIATES, URI NEGATIVE (NEGATIVE); PHENCYCLIDINE,URINE NEGATIVE (NEGATIVE); URINE AMPHETAMINES NEGATIVE (NEGATIVE); URINE BARBITURATES NEGATIVE (NEGATIVE); URINE BENZODIAZEPINES NEGATIVE (NEGATIVE)
[2022-08-27] MEDS: INSULIN SLIDING SCALE (NOVOLOG) 1 VIAL SQ SCH ×4 (06:20→21:46)
[2022-08-27 09:27] LABS: BASO % 0.5 % (0-2.0); EOS % 0.1 % (0-4.5); HEMATOCRIT 37.5 % (32.4-45.2); HEMOGLOBIN 12.1 GM/dL (10.7-15.3); LYMPH % 16.8 % (8-40); MCH 28.3 pg (25.7-33.7); MCHC 32.2 g/dl (32.0-36.0); MEAN CELL VOLUME 87.9 fl (80-96); NEUT % 70.6 % (42.8-82.8); PLATELET COUNT 197 10^3/uL (134-434); RBC 4.27 M/mm3 (3.60-5.2); RDW 20.2 % (11.6-15.6); WHITE BLOOD COUNT 6.1 K/mm3 (4.0-10.0)
[2022-08-27 09:31] LABS: CALCIUM 9.3 mg/dL (8.5-10.1)
[2022-08-27 09:32] LABS: ALBUMIN 3.7 g/dl (3.4-5.0); BLOOD UREA NITROGEN 47.5 mg/dL (7-18); MAGNESIUM 2.4 mg/dL (1.8-2.4)
[2022-08-27 09:35] LABS: CREATININE 1.2 mg/dL (0.55-1.3)
[2022-08-27 09:37] LABS: BILIRUBIN,TOTAL 1.6 mg/dL (0.2-1); TOT PROT 6.6 g/dl (6.4-8.2)
[2022-08-27] MEDS: GABAPENTIN 100 MG CAPSULE PO SCH ×2 (10:40→21:43)
[2022-08-27] MEDS: APIXABAN 5 MG TABLET PO SCH ×2 (10:40→21:43)
[2022-08-27] MEDS: SACUBITRIL/VALSARTAN 24 MG-26 MG TABLET PO SCH ×2 (10:41→21:43)
[2022-08-27] MEDS: DEXTROSE 5%-WATER - 1,000 ML IV SCH (16:32)
[2022-08-28] MEDS: INSULIN SLIDING SCALE (NOVOLOG) 1 VIAL SQ SCH ×4 (06:10→21:59)
[2022-08-28 07:37] LABS: HEMATOCRIT 33.9 % (32.4-45.2); HEMOGLOBIN 11.1 GM/dL (10.7-15.3); MCH 28.7 pg (25.7-33.7); MCHC 32.7 g/dl (32.0-36.0); MEAN CELL VOLUME 87.9 fl (80-96); MEAN PLT VOLUME 8.9 fl (7.5-11.1); PLATELET COUNT 177 10^3/uL (134-434); RBC 3.86 M/mm3 (3.60-5.2); RDW 20.1 % (11.6-15.6); WHITE BLOOD COUNT 6.6 K/mm3 (4.0-10.0)
[2022-08-28 07:57] LABS: ALBUMIN 3.5 g/dl (3.4-5.0); CALCIUM 9.3 mg/dL (8.5-10.1)
[2022-08-28 07:58] LABS: BLOOD UREA NITROGEN 36.2 mg/dL (7-18)
[2022-08-28 08:01] LABS: CREATININE 0.9 mg/dL (0.55-1.3)
[2022-08-28 08:02] LABS: BILIRUBIN,TOTAL 1.7 mg/dL (0.2-1); TOT PROT 6.1 g/dl (6.4-8.2)
[2022-08-28] MEDS: APIXABAN 5 MG TABLET PO SCH ×2 (09:31→21:59)
[2022-08-28] MEDS: SACUBITRIL/VALSARTAN 24 MG-26 MG TABLET PO SCH ×2 (09:31→21:59)
[2022-08-28] MEDS: GABAPENTIN 100 MG CAPSULE PO SCH ×2 (09:31→21:59)
[2022-08-28] MEDS: DEXTROSE 5%-WATER - 1,000 ML IV SCH (12:20)
[2022-08-28] MEDS ORDERED: ALBUTEROL SO4 HFA INHALER IH PRN (15:59)
[2022-08-28] MEDS: ACETAMINOPHEN 1000 MG/100 ML BAG IVPB PRN (17:26)
[2022-08-28] MEDS ORDERED: ATORVASTATIN CA 20 MG TABLET (FP) PO SCH (22:00)
[2022-08-29] MEDS: ACETAMINOPHEN 1000 MG/100 ML BAG IVPB PRN ×3 (02:33→21:27)
[2022-08-29] MEDS: INSULIN SLIDING SCALE (NOVOLOG) 1 VIAL SQ SCH ×4 (06:01→21:40)
[2022-08-29 08:54] LABS: BASO % 0.3 % (0-2.0); EOS % 0.1 % (0-4.5); HEMATOCRIT 30.4 % (32.4-45.2); LYMPH % 11.8 % (8-40); MCH 28.7 pg (25.7-33.7); MEAN CELL VOLUME 87.1 fl (80-96); MEAN PLT VOLUME 8.9 fl (7.5-11.1); MONO % 14.4 % (3.8-10.2); NEUT % 73.4 % (42.8-82.8); PLATELET COUNT 146 10^3/uL (134-434); RBC 3.49 M/mm3 (3.60-5.2); RDW 20.6 % (11.6-15.6); WHITE BLOOD COUNT 5.3 K/mm3 (4.0-10.0)
[2022-08-29 09:11] LABS: ALBUMIN 2.9 g/dl (3.4-5.0); BLOOD UREA NITROGEN 36.2 mg/dL (7-18); CALCIUM 8.3 mg/dL (8.5-10.1)
[2022-08-29 09:14] LABS: PHOSPHOROUS 2.5 mg/dL (2.5-4.9)
[2022-08-29 09:16] LABS: BILIRUBIN,TOTAL 1.4 mg/dL (0.2-1); TOT PROT 5.3 g/dl (6.4-8.2)
[2022-08-29 09:23] LABS: BILIRUBIN,DIRECT 0.7 mg/dL (0.0-0.2)
[2022-08-29 10:15] LABS: BILIRUBIN,DIRECT 0.8 mg/dL (0.0-0.2)
[2022-08-29 10:27] LABS: ANISOCYTOSIS 2+; MACROCYTOSIS 0
[2022-08-29] MEDS: APIXABAN 5 MG TABLET PO SCH ×2 (10:45→21:28)
[2022-08-29] MEDS: SACUBITRIL/VALSARTAN 24 MG-26 MG TABLET PO SCH ×2 (10:45→22:41)
[2022-08-29] MEDS: GABAPENTIN 100 MG CAPSULE PO SCH ×2 (10:45→21:28)
[2022-08-29] MEDS ORDERED: ACETAMINOPHEN 1000 MG/100 ML BAG IVPB PRN (16:23)
[2022-08-29] MEDS ORDERED: ALBUTEROL SO4 HFA INHALER IH PRN (16:23)
[2022-08-29] MEDS: ATORVASTATIN CA 20 MG TABLET (FP) PO SCH (21:28)
[2022-08-30] MEDS: ACETAMINOPHEN 1000 MG/100 ML BAG IVPB PRN (05:59)
[2022-08-30] MEDS: INSULIN SLIDING SCALE (NOVOLOG) 1 VIAL SQ SCH ×4 (05:59→21:02)
[2022-08-30 08:57] LABS: BASO % 0.2 % (0-2.0); EOS % 0.1 % (0-4.5); HEMATOCRIT 32.8 % (32.4-45.2); HEMOGLOBIN 10.7 GM/dL (10.7-15.3); LYMPH % 10.4 % (8-40); MCH 28.7 pg (25.7-33.7); MCHC 32.8 g/dl (32.0-36.0); MEAN CELL VOLUME 87.5 fl (80-96); MEAN PLT VOLUME 8.9 fl (7.5-11.1); MONO % 12.5 % (3.8-10.2); NEUT % 76.8 % (42.8-82.8); PLATELET COUNT 163 10^3/uL (134-434); RBC 3.74 M/mm3 (3.60-5.2); RDW 20.1 % (11.6-15.6); WHITE BLOOD COUNT 6.9 K/mm3 (4.0-10.0)
[2022-08-30 09:26] LABS: ALBUMIN 3.1 g/dl (3.4-5.0); BLOOD UREA NITROGEN 36.4 mg/dL (7-18); MAGNESIUM 2.3 mg/dL (1.8-2.4)
[2022-08-30 09:28] LABS: PHOSPHOROUS 2.3 mg/dL (2.5-4.9)
[2022-08-30 09:30] LABS: BILIRUBIN,TOTAL 1.3 mg/dL (0.2-1); TOT PROT 5.8 g/dl (6.4-8.2)
[2022-08-30] MEDS: APIXABAN 5 MG TABLET PO SCH ×2 (10:10→21:03)
[2022-08-30] MEDS: GABAPENTIN 100 MG CAPSULE PO SCH ×2 (10:10→21:00)
[2022-08-30] MEDS: SACUBITRIL/VALSARTAN 24 MG-26 MG TABLET PO SCH ×2 (10:10→21:02)
[2022-08-30 18:09] LABS: MAGNESIUM 2.2 mg/dL (1.8-2.4)
[2022-08-30 18:13] LABS: PHOSPHOROUS 2.7 mg/dL (2.5-4.9)
[2022-08-30] MEDS: ATORVASTATIN CA 20 MG TABLET (FP) PO SCH (21:03)
[2022-08-31] MEDS ORDERED: ACETAMINOPHEN 1000 MG/100 ML BAG IVPB ONE (04:10)
[2022-08-31] MEDS: INSULIN SLIDING SCALE (NOVOLOG) 1 VIAL SQ SCH ×4 (07:08→21:11)
[2022-08-31 08:52] LABS: HEMATOCRIT 29.9 % (32.4-45.2); HEMOGLOBIN 9.7 GM/dL (10.7-15.3); MCH 28.3 pg (25.7-33.7); MCHC 32.5 g/dl (32.0-36.0); MEAN CELL VOLUME 87.1 fl (80-96); MEAN PLT VOLUME 8.7 fl (7.5-11.1); PLATELET COUNT 157 10^3/uL (134-434); RBC 3.43 M/mm3 (3.60-5.2); WHITE BLOOD COUNT 5.5 K/mm3 (4.0-10.0)
[2022-08-31 09:08] LABS: ALBUMIN 2.8 g/dl (3.4-5.0); BLOOD UREA NITROGEN 33.1 mg/dL (7-18); CALCIUM 8.9 mg/dL (8.5-10.1); MAGNESIUM 2.2 mg/dL (1.8-2.4)
[2022-08-31 09:11] LABS: CREATININE 0.8 mg/dL (0.55-1.3); PHOSPHOROUS 2.1 mg/dL (2.5-4.9)
[2022-08-31 09:12] LABS: TOT PROT 5.4 g/dl (6.4-8.2)
[2022-08-31 09:14] LABS: BILIRUBIN,TOTAL 1.4 mg/dL (0.2-1)
[2022-08-31] MEDS: GABAPENTIN 100 MG CAPSULE PO SCH ×2 (10:00→21:04)
[2022-08-31] MEDS: SACUBITRIL/VALSARTAN 24 MG-26 MG TABLET PO SCH ×2 (10:00→21:04)
[2022-08-31] MEDS: APIXABAN 5 MG TABLET PO SCH ×2 (10:00→21:04)
[2022-08-31] MEDS: traMADol HCL 50 MG TABLET PO PRN (13:56)
[2022-08-31] MEDS: ATORVASTATIN CA 20 MG TABLET (FP) PO SCH (21:04)
[2022-09-01] MEDS: INSULIN SLIDING SCALE (NOVOLOG) 1 VIAL SQ SCH ×4 (06:31→22:29)
[2022-09-01] MEDS: traMADol HCL 50 MG TABLET PO PRN ×2 (07:10→22:28)
[2022-09-01 08:54] LABS: HEMATOCRIT 32.7 % (32.4-45.2); HEMOGLOBIN 10.6 GM/dL (10.7-15.3); MCH 28.4 pg (25.7-33.7); MCHC 32.4 g/dl (32.0-36.0); MEAN CELL VOLUME 87.4 fl (80-96); MEAN PLT VOLUME 8.2 fl (7.5-11.1); PLATELET COUNT 163 10^3/uL (134-434); RBC 3.74 M/mm3 (3.60-5.2); RDW 19.6 % (11.6-15.6); WHITE BLOOD COUNT 5.8 K/mm3 (4.0-10.0)
[2022-09-01 09:24] LABS: ALBUMIN 2.8 g/dl (3.4-5.0); CALCIUM 8.9 mg/dL (8.5-10.1)
[2022-09-01 09:26] LABS: BLOOD UREA NITROGEN 38.6 mg/dL (7-18); MAGNESIUM 2.3 mg/dL (1.8-2.4)
[2022-09-01 09:27] LABS: CREATININE 0.8 mg/dL (0.55-1.3); PHOSPHOROUS 2.2 mg/dL (2.5-4.9)
[2022-09-01 09:29] LABS: TOT PROT 5.7 g/dl (6.4-8.2)
[2022-09-01] MEDS: APIXABAN 5 MG TABLET PO SCH ×2 (11:33→22:39)
[2022-09-01] MEDS: GABAPENTIN 100 MG CAPSULE PO SCH ×2 (11:33→22:28)
[2022-09-01] MEDS: SACUBITRIL/VALSARTAN 24 MG-26 MG TABLET PO SCH ×2 (11:34→22:29)
[2022-09-01] MEDS: ATORVASTATIN CA 20 MG TABLET (FP) PO SCH (22:29)
[2022-09-02 00:39] VITALS: RESP 18
[2022-09-02] MEDS: INSULIN SLIDING SCALE (NOVOLOG) 1 VIAL SQ SCH ×4 (06:06→22:14)
[2022-09-02] MEDS: APIXABAN 5 MG TABLET PO SCH ×2 (09:19→22:14)
[2022-09-02] MEDS: GABAPENTIN 100 MG CAPSULE PO SCH ×2 (09:19→22:14)
[2022-09-02 09:47] LABS: BASO % 0.4 % (0-2.0); HEMATOCRIT 30.9 % (32.4-45.2); LYMPH % 11.9 % (8-40); MCH 28.2 pg (25.7-33.7); MCHC 32.4 g/dl (32.0-36.0); MEAN CELL VOLUME 87.2 fl (80-96); MEAN PLT VOLUME 8.1 fl (7.5-11.1); MONO % 17.1 % (3.8-10.2); NEUT % 70.6 % (42.8-82.8); PLATELET COUNT 174 10^3/uL (134-434); RBC 3.55 M/mm3 (3.60-5.2); RDW 19.9 % (11.6-15.6); WHITE BLOOD COUNT 5.1 K/mm3 (4.0-10.0)
[2022-09-02 10:36] LABS: ALBUMIN 2.7 g/dl (3.4-5.0); BILIRUBIN,TOTAL 1.2 mg/dL (0.2-1); BLOOD UREA NITROGEN 36.9 mg/dL (7-18); CALCIUM 8.9 mg/dL (8.5-10.1); CREATININE 0.9 mg/dL (0.55-1.3); MAGNESIUM 2.2 mg/dL (1.8-2.4); PHOSPHOROUS 2.4 mg/dL (2.5-4.9); TOT PROT 5.6 g/dl (6.4-8.2)
[2022-09-02] MEDS: SACUBITRIL/VALSARTAN 24 MG-26 MG TABLET PO SCH ×2 (11:59→22:16)
[2022-09-02] MEDS: ATORVASTATIN CA 20 MG TABLET (FP) PO SCH (22:14)
[2022-09-02] MEDS: traMADol HCL 50 MG TABLET PO PRN (22:14)
[2022-09-03] MEDS ORDERED: FUROSEMIDE 20 MG TABLET (FP) PO SCH (06:00)
[2022-09-03] MEDS: traMADol HCL 50 MG TABLET PO PRN ×2 (06:24→14:30)
[2022-09-03] MEDS: INSULIN SLIDING SCALE (NOVOLOG) 1 VIAL SQ SCH ×4 (06:24→22:19)
[2022-09-03] MEDS: APIXABAN 5 MG TABLET PO SCH ×2 (09:12→22:17)
[2022-09-03] MEDS: SACUBITRIL/VALSARTAN 24 MG-26 MG TABLET PO SCH ×2 (09:13→22:20)
[2022-09-03] MEDS: GABAPENTIN 100 MG CAPSULE PO SCH ×2 (09:15→22:18)
[2022-09-03] MEDS ORDERED: metoPROLOL SUCCINATE 25 MG TAB.SR.24H (FP) PO SCH (12:20)
[2022-09-03] MEDS: FUROSEMIDE 20 MG TABLET (FP) PO SCH (14:30)
[2022-09-03] MEDS: ATORVASTATIN CA 20 MG TABLET (FP) PO SCH (22:17)
[2022-09-04] MEDS: INSULIN SLIDING SCALE (NOVOLOG) 1 VIAL SQ SCH ×4 (06:11→21:04)
[2022-09-04] MEDS: FUROSEMIDE 20 MG TABLET (FP) PO SCH ×2 (06:14→13:56)
[2022-09-04] MEDS: SACUBITRIL/VALSARTAN 24 MG-26 MG TABLET PO SCH ×2 (10:04→21:39)
[2022-09-04] MEDS: GABAPENTIN 100 MG CAPSULE PO SCH ×2 (10:04→21:04)
[2022-09-04] MEDS: APIXABAN 5 MG TABLET PO SCH ×2 (10:04→21:04)
[2022-09-04 10:50] LABS: MAGNESIUM 2.2 mg/dL (1.8-2.4)
[2022-09-04 10:53] LABS: PHOSPHOROUS 3.2 mg/dL (2.5-4.9)
[2022-09-04 12:37] LABS: ALBUMIN 2.6 g/dl (3.4-5.0); BILIRUBIN,TOTAL 0.7 mg/dL (0.2-1); BLOOD UREA NITROGEN 37.7 mg/dL (7-18); CALCIUM 9.2 mg/dL (8.5-10.1); CREATININE 0.8 mg/dL (0.55-1.3); TOT PROT 5.6 g/dl (6.4-8.2)
[2022-09-04] MEDS ORDERED: ACETAMINOPHEN 325 MG TABLET (FP) PO PRN (16:02)
[2022-09-04] MEDS: ATORVASTATIN CA 20 MG TABLET (FP) PO SCH (21:04)
[2022-09-04] MEDS: traMADol HCL 50 MG TABLET PO PRN (21:20)
[2022-09-05] MEDS: traMADol HCL 50 MG TABLET PO PRN (06:02)
[2022-09-05] MEDS: INSULIN SLIDING SCALE (NOVOLOG) 1 VIAL SQ SCH ×2 (06:04→11:59)
[2022-09-05] MEDS ORDERED: FUROSEMIDE 20 MG TABLET (FP) PO SCH (07:00)
[2022-09-05 07:28] LABS: BASO % 0.7 % (0-2.0); EOS % 1.5 % (0-4.5); HEMATOCRIT 31.3 % (32.4-45.2); LYMPH % 15.5 % (8-40); MCH 28.8 pg (25.7-33.7); MEAN CELL VOLUME 89.9 fl (80-96); MEAN PLT VOLUME 8.4 fl (7.5-11.1); MONO % 14.6 % (3.8-10.2); NEUT % 67.7 % (42.8-82.8); PLATELET COUNT 178 10^3/uL (134-434); RBC 3.48 M/mm3 (3.60-5.2); RDW 19.7 % (11.6-15.6); WHITE BLOOD COUNT 4.4 K/mm3 (4.0-10.0)
[2022-09-05] MEDS ORDERED: FAMOTIDINE 20 MG TABLET PO ONE (08:29)
[2022-09-05] MEDS: SACUBITRIL/VALSARTAN 24 MG-26 MG TABLET PO SCH (09:59)
[2022-09-05] MEDS: APIXABAN 5 MG TABLET PO SCH (10:00)
[2022-09-05] MEDS: GABAPENTIN 100 MG CAPSULE PO SCH (10:00)
[2022-09-05 12:59] VITALS: BMI 26.7
[2022-09-05 15:25] VITALS: BP 104/57; PULSE 97; TEMP 97.8
[2022-09-06] MEDS ORDERED: SPIRONOLACTONE 25 MG TABLET PO SCH (10:00)
== END 2022-09-05 16:37 | DRG 291 ==
LOC: JER 01:16 → JERBED 04:35 → J4S 08-26 01:16 → J7W 08-29 16:19
PROVIDERS: ADMIT Internal Medicine; ATTEND Internal Medicine
DX: I13.0 Hypertensive heart and chronic kidney disease with heart failure and stage 1 through stage 4 chronic kidney disease, or unspecified chronic kidney disease (principal); G93.41 Metabolic encephalopathy; I50.43 Acute on chronic combined systolic (congestive) and diastolic (congestive) heart failure; R57.0 Cardiogenic shock; N17.9 Acute kidney failure, unspecified; E87.20 Acidosis, unspecified; I48.20 Chronic atrial fibrillation, unspecified; E87.0 Hyperosmolality and hypernatremia; I24.8 Other forms of acute ischemic heart disease; E11.22 Type 2 diabetes mellitus with diabetic chronic kidney disease; R74.01 Elevation of levels of liver transaminase levels; E78.5 Hyperlipidemia, unspecified; I25.10 Atherosclerotic heart disease of native coronary artery without angina pectoris; E11.649 Type 2 diabetes mellitus with hypoglycemia without coma; Z95.5 Presence of coronary angioplasty implant and graft; N18.9 Chronic kidney disease, unspecified
CPT/HCPCS: 0241U-QW; 36415; 70450-TC; 71045-TC-FY; 72170-TC-FY; 73502-TC-RT-FY; 73552-TC-RT-FY; 73562-TC-RT-FY; 74018-TC-FY; 76700-TC; 80053; 80061; 80307; 81003; 82248; 82436; 82550; 82553; 82570; 82803; 82962; 83036; 83605; 83690; 83735; 83880; 84100; 84133; 84300; 84443; 84484; 85025; 85027; 85610; 85730; 86704; 86803; 86850; 86900; 86901; 87040; 87086; 87340; 87517; 93005; 93010; 97116-GP; 97161-GP; 99291; C9803-CS; U0003; U0005